=== PATIENT | male | born 1955 | race Caucasian/White ===

== ENCOUNTER 2023-04-04 10:16 | Outpatient (OUT) | payer MEDICARE, SELFPAY ==
--- NOTE | 2023-04-04 10:28 | XR_ITS ---
The [address] [address] Patient Name: ALICJA REYES MRN: [id number] date: 1955 Sex: M Assigned Patient Location: RAD Current Patient Location: RAD Accession/Order Number: [id number] Exam Date: 04/04/2023 10:55 Report Date: 04/04/2023 12:44 At the request of: GABY SALINAS Procedure: XR abdomen 1V EXAM: XR abdomen 1V HISTORY: Hematuria R31.9, Frequency Of Micturition R35.0 COMPARISON: None. TECHNIQUE: AP view of the abdomen. FINDINGS: Nonobstructive bowel gas pattern is noted. There is no suspicious calcification. Posterior fusion of the lower lumbar spine. XR/XR abdomen 1V IMPRESSION: Nonobstructive bowel gas pattern. No suspicious renal calcification. Electronically authenticated by: MIGUEL GRACE Date: 04/04/2023 12:44
== END 2023-04-04 10:17 | disposition home or self-care (01) ==
LOC: RAD 10:21
PROVIDERS: PCP Family Medicine; Visit Provider Nurse Practitioner
DX: R31.9 Hematuria, unspecified (principal); R35.0 Frequency of micturition; R10.9 Unspecified abdominal pain
CPT/HCPCS: 74018

== ENCOUNTER 2023-05-23 08:51 | Emergency (ER) | payer MEDICARE, OTHER, SELFPAY ==
[2023-05-23] VITALS (11 sets, daily range): BP systolic 163–181; BP diastolic 98–105; PULSE 103–129; RESP 12–24; TEMP 36.4; O2SAT 93–99; BMI 36.9
[2023-05-23 09:11] LABS: Glucometer 287 mg/dL (74-106)
--- NOTE | 2023-05-23 09:19 | ECG_ITS ---
The 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
--- NOTE | 2023-05-23 09:20 | ED.GENADUL1 ---
HPI - General Adult General Chief complaint: Recheck/Abnormal Lab/Rx Stated complaint: HIGH BLOOD SUGAR Time Seen by Provider: 05/23/23 09:16 Source: patient and family Mode of arrival: walk-in Limitations: no limitations History of Present Illness HPI narrative: 68-year-old male presents for elevated blood sugar. He was nauseous and vomited yesterday and today and he's been shaky. He states his blood sugar was over six hundred yesterday. He thinks it might be due to the Keflex that she was started on yesterday. He is on it for a urinary tract infection. He has not had a fever and doesn't complain to me of abdominal pain. Related Data Home Medications Medication Instructions Recorded Confirmed atorvastatin 20 mg tablet 20 mg PO DAILY 05/23/23 05/23/23 cephalexin 250 mg capsule 250 mg PO Q6H 05/23/23 05/23/23 glipizide 5 mg tablet 5 mg PO DAILY 05/23/23 05/23/23 lisinopril 20 1 tab PO DAILY 05/23/23 05/23/23 mg-hydrochlorothiazide 12.5 mg tablet metformin 500 mg tablet 500 mg PO BID 05/23/23 05/23/23 metoprolol tartrate 25 mg tablet 25 mg PO 05/23/23 omeprazole 40 mg capsule,delayed 40 mg PO DAILY 05/23/23 05/23/23 release Previous Rx's Medication Instructions Recorded ondansetron 4 mg disintegrating 4 mg PO Q6H PRN nausea and 05/23/23 tablet vomiting #20 tabs Allergies Allergy/AdvReac Type Severity Reaction Status Date / Time No Known Drug Allergies Allergy Verified 05/23/23 09:02 Review of Systems ROS Narrative A ten point review of systems is negative except as noted above. PFSH PFSH Social History Smoking status: Former smoker Exam Narrative Exam Narrative: Nurses note and vital signs reviewed and patient is not hypoxic. General: The patient appears well and in no apparent distress. Patient is resting comfortably on cart. Skin: Warm, dry, no pallor noted. There is no rash noted. Head: Normocephalic, atraumatic Eye: Normal conjunctiva, no drainage Ears, Nose, Mouth, and Throat: oral mucosa is somewhat dry. Nares patent. Cardiovascular: Regular Rate and Rhythm, tachycardic Respiratory: Patient is in no distress, no accessory muscle use, lungs are clear to auscultation, no wheezing, rales or rhonchi Back: non-tender GI: soft and nontender Musculoskeletal: The patient has no evidence of calf tenderness, no pitting edema, symmetrical pulses noted bilaterally Neurological: A&O, normal speech Psychiatric: Cooperative Constitutional Vital Signs, click to edit/add: Last Vital Signs Temp 97.5 F L 05/23/23 08:55 Pulse 103 H 05/23/23 10:20 Resp 23 05/23/23 10:20 BP 181/98 H 05/23/23 10:00 Pulse Ox 95 05/23/23 10:20 O2 Del Method Room Air 05/23/23 08:55 Course Vital Signs Vital signs: Vital Signs Temperature 97.5 F L 05/23/23 08:55 Pulse Rate 129 H 05/23/23 08:55 Respiratory Rate 18 05/23/23 08:55 Blood Pressure 170/105 H 05/23/23 08:55 Pulse Oximetry 99 05/23/23 08:55 Oxygen Delivery Method Room Air 05/23/23 08:55 Temperature 97.5 F L 05/23/23 08:55 Pulse Rate 103 H 05/23/23 10:20 Respiratory Rate 23 05/23/23 10:20 Blood Pressure 181/98 H 05/23/23 10:00 Pulse Oximetry 95 05/23/23 10:20 Oxygen Delivery Method Room Air 05/23/23 08:55 Medical Decision Making MDM Narrative Medical decision making narrative: blood sugar was mildly elevated but not as high as he had gotten home. Keflex apparently can cause hypoglycemia rather than hyperglycemia. He was unable to provide us a urine specimen. She was given Zofran and is prescribed Zofran and he'll follow-up with his doctor and will keep closely monitoring his bloood sugar. Treatment diagnosis and follow-up were discussed with the patient and his . Differential Diagnosis Differential Diagnosis: hyperglycemia, medication noncompliance, urinary tract infection Lab Data Lab results reviewed: Yes I reviewed the patient's lab results Labs: Lab Results 05/23/23 05/23/23 05/23/23 Range/Units 09:01 09:30 11:34 WBC 9.0 (4.0-11.0) 10^3/uL RBC 4.34 L (4.70-6.10) 10^6/uL Hgb 13.6 L (14.0-18.0) g/dL Hct 41.1 L (42.0-54.0) % MCV 94.7 H (80.0-94.0) fL MCH 31.3 (25.9-34.0) pg MCHC 33.1 (29.9-35.2) g/dL RDW 12.4 (11.0-15.0) % Plt Count 358 (150-450) 10^3/uL MPV 9.9 (9.5-13.5) fL Neut % (Auto) 72.9 (43.0-75.0) % Lymph % (Auto) 16.0 L (20.5-60.0) % [place] % (Auto) 8.9 (1.7-12.0) % Eos % (Auto) 1.0 (0.9-7.0) % Baso % (Auto) 0.6 (0.2-2.0) % Neut # (Auto) 6.6 H (1.4-6.5) 10^3/uL Lymph # (Auto) 1.4 (1.2-3.8) 10^3/uL [place] # (Auto) 0.8 (0.3-0.8) 10^3/uL Eos # (Auto) 0.1 (0.0-0.7) 10^3/uL Baso # (Auto) 0.1 (0.0-0.1) 10^3/uL Abs Immat Gran (auto) 0.05 H (0.00-0.03) 10^3/uL Imm/Tot Granulo (auto) 0.6 H (0.0-0.5) % Sodium 137 (136-145) mmol/L Potassium 2.7 L* (3.5-5.1) mmol/L Chloride 93 L (98-107) mmol/L Carbon Dioxide 27.7 (21.0-32.0) mmol/L Anion Gap 19.0 BUN 22.0 H (7.0-18.0) mg/dL Creatinine 1.64 H (0.70-1.30) mg/dL Est GFR ( Amer) 51 L (>=60) Est GFR (Non-Af Amer) 42 L (>=60) BUN/Creatinine Ratio 13.4 Glucose 298 H (74-106) mg/dL Calcium 8.3 L (8.5-10.1) mg/dL Acetone, Qual Negative (NEGATIVE) POC Glucose 287 H 194 H (74-106) mg/dL ECG Data Attestation: I personally reviewed and interpreted this ECG as follows: (EKG on my interpretation shows normal sinus rhythm with a rate of one hundred eighteen) Critical Care Time Critical Care Time Critical Care Time: Yes Total Critical Care Time: 30 Attestation: Due to the high probability of sudden and clinically significant deterioration in the patient's condition he/she required the highest level of my preparedness to intervene urgently I provided critical care time including documentation time, medication orders and management, reevaluation, vital sign assessment, ordering and reviewing of lab tests, ordering and reviewing of x-ray studies, and admission orders. Aggregate critical care time is 30 minutes including only time during which I was engaged in work directly related to his/her care and did not include time spent treating other patients simultaneously. Discharge Plan Discharge Chief Complaint: Recheck/Abnormal Lab/Rx Clinical Impression: Hyperglycemia Patient Disposition: Home, Self-Care Time of Disposition Decision: 11:44 Condition: Good Mode of Transportation: Private Vehicle Prescriptions / Home Meds: New ondansetron 4 mg tablet,disintegrating 4 mg PO Q6H PRN (Reason: nausea and vomiting) Qty: 20 0RF No Action cephalexin 250 mg capsule 250 mg PO Q6H glipizide 5 mg tablet 5 mg PO DAILY lisinopril-hydrochlorothiazide 20-12.5 mg tablet 1 tab PO DAILY metformin 500 mg tablet 500 mg PO BID metoprolol tartrate 25 mg tablet 25 mg PO omeprazole 40 mg capsule,delayed release(DR/EC) 40 mg PO DAILY atorvastatin 20 mg tablet 20 mg PO DAILY Instructions: Diabetic Hyperglycemia (ED) Stand Alone Forms: Portal Instructions Referrals: NANCY GRACE [Primary Care Provider] - 1 week
[2023-05-23] MEDS: 0.9 % SODIUM CHLORIDE 1,000 ML 1000 ML IV (09:31)
[2023-05-23] MEDS: ONDANSETRON PF 4 MG/2 ML VIAL IV ×2 (09:31→11:54)
[2023-05-23 09:57] LABS: Basophils Absolute Auto 0.1 10^3/uL (0.0-0.1); Basophils Percent Auto 0.6 % (0.2-2.0); Eosinophils Absolute Auto 0.1 10^3/uL (0.0-0.7); Hematocrit 41.1 % (42.0-54.0); Hemoglobin 13.6 g/dL (14.0-18.0); Immature Granulocytes Abs Auto 0.05 10^3/uL (0.00-0.03); Immature Granulocytes Pct Auto 0.6 % (0.0-0.5); Lymphocytes Absolute Auto 1.4 10^3/uL (1.2-3.8); Mean Corpuscular HGB Conc 33.1 g/dL (29.9-35.2); Mean Corpuscular Hemoglobin 31.3 pg (25.9-34.0); Mean Corpuscular Volume 94.7 fL (80.0-94.0); Mean Platelet Volume 9.9 fL (9.5-13.5); Monocytes Absolute Auto 0.8 10^3/uL (0.3-0.8); Monocytes Percent Auto 8.9 % (1.7-12.0); Neutrophils Absolute Auto 6.6 10^3/uL (1.4-6.5); Neutrophils Percent Auto 72.9 % (43.0-75.0); Platelet Count 358 10^3/uL (150-450); Red Blood Count 4.34 10^6/uL (4.70-6.10); Red Cell Distribution Width 12.4 % (11.0-15.0)
[2023-05-23 10:13] LABS: BUN Creatinine Ratio 13.4; Calcium 8.3 mg/dL (8.5-10.1); Carbon Dioxide 27.7 mmol/L (21.0-32.0); Chloride 93 mmol/L (98-107); Estimated GFR (African America 51 (>=60); Estimated GFR (Non-African Ame 42 (>=60); Glucose 298 mg/dL (74-106); Sodium 137 mmol/L (136-145)
[2023-05-23 10:15] LABS: Acetone NEGATIVE (NEGATIVE)
[2023-05-23 10:17] LABS: Potassium 2.7 mmol/L (3.5-5.1)
[2023-05-23] MEDS: INSULIN REGULAR 300 UNITS/3 ML 6 UNIT IV (10:48)
[2023-05-23 11:35] LABS: Glucometer 194 mg/dL (74-106)
== END 2023-05-23 11:57 | disposition home or self-care (01) ==
PROVIDERS: Emergency Provider Emergency Medicine; PCP Family Medicine
DX: R73.9 Hyperglycemia, unspecified (principal); Z79.84 Long term (current) use of oral hypoglycemic drugs; Z87.891 Personal history of nicotine dependence; R11.2 Nausea with vomiting, unspecified
CPT/HCPCS: 36415; 80048; 81001; 82009; 82948; 85025; 93005; 96361; 96374; 96376; 99284

== ENCOUNTER 2023-06-04 12:11 | Emergency (ER) | payer MEDICARE, OTHER, SELFPAY ==
[2023-06-04] VITALS (23 sets, daily range): BP systolic 124–161; BP diastolic 83–87; PULSE 83–115; RESP 13–26; TEMP 36.8; O2SAT 96–99; BMI 34.0
--- OUTSIDE RECORDS SUMMARY | 2023-06-04 12:19 | XMS_ITS | CCD ---
Author Name Unknown Address [address] [place] [address] Organization [facility] Care Team Providers Care Director Of Online Merchandising Name Role Phone DR TYRESE MCGRATH Admitting Unavailable RAMILA, DR TYRESE Green Attending Unavailable RAMILA, DR TYRESE Green Primary Care Unavailable RAMILA, DR TYRESE Green Consulting Unavailable Jose Melchor Primary Care Physician Jose Melchor Attending Unavailable Jose Melchor Attending Unavailable EseChristy Referring Unavailable Manolo ALLEN Attending Unavailable EseChristy Admitting Unavailable Ese, Christy Montes Attending Unavailable Jose Melchor Attending Unavailable Jose Melchor Admitting Unavailable Ese, Christy Montes Attending Unavailable Ese, Christy L Admitting Unavailable Ese, Christy L Attending Unavailable EseChristy Admitting Unavailable Jose Melchor Admitting Unavailable Jose Melchor Attending Unavailable Jose Melchor Admitting Unavailable Jose Melchor Attending Unavailable Jose Melchor Attending Unavailable Ese, Christy Montes Attending Unavailable Jose Melchor Attending Unavailable Jose Melchor Attending Unavailable Jose Melchor Attending Unavailable Jose Melchor Attending Unavailable Jose Melchor Attending Unavailable Allergies Allergy Classification Reported Allergen(s) Allergy Type Date of Onset Reaction(s) Facility (2 sources) celecoxib; Translations: [CeleBREX] Drug Allergy [facility] Repository (1 source) Cetirizine Drug Allergy [facility] Rep[facility] (6 sources) celecoxib; Translations: [celecoxib] Drug Allergy Unknown (qualifier value) [facility] Medications Current Medications Medication Drug Class(es) Dates Sig (Normalized) Sig (Original) atorvastatin 20 mg oral tablet (6 sources) HMG-CoA Reductase Inhibitor Start: 09-11-2023 take 1 tablet by mouth at bedtime atorvastatin 20 mg Tab 20 mg = 1 tab(s), Oral, Bedtime, # 90 tab(s), Refills(s) 1, Pharmacy: [facility], 174.5, cm, 02/14/23 7:27:00 EDT, Height/Length Dosing, 115.8, kg, 02/14/23 7:27:00 EDT, Weight Dosing Start Date: 02/14/23 Status: Ordered Start: 01-13-2023 take 1 tablet by marly th at bedtime atorvastatin 20 mg Tab 20 mg = 1 tab(s), Oral, Bedtime, Refills(s) 0 Start Date: 01/13/23 Status: Ordered cephalexin 250 mg oral capsule (3 sources) Cephalosporin Antibacterial Start: 05-26-2023 End: 06-02-2023 take 1 capsule by mouth four times daily Keflex 250 mg Cap 250 mg = 1 cap(s), Oral, QID, X 7 day(s), # 28 cap(s), Refills(s) 0, Pharmacy: [facility]/pharmacy #[id number], 174.5, cm, 05/26/23 9:14:00 EST, Height/Length Dosing, 109.1, kg, 05/26/23 9:14:00 EST, Weight Dosing Start Date: 05/26/23 Stop Date: 06/02/23 Status: Ordered Start: 05-16-2023 End: 05-23-2023 take 1 capsule by mouth four times daily Keflex 250 mg Cap 250 mg = 1 cap(s), Oral, QID, X 7 day(s), # 28 cap(s), Refills(s) 0, Pharmacy: [facility], 174.5, cm, 05/16/23 7:26:00 EST, Height/Length Dosing, 113.4, kg, 05/16/23 7:26:00 EST, Weight Dosing Start Date: 05/16/23 Stop Date: 05/23/23 Status: Ordered ciprofloxacin 500 mg oral tablet (2 sources) Quinolone Antimicrobial Start: 04-04-2023 End: 2023 take 1 tablet by mouth every twelve hours Cipro 500 mg Tab 500 mg = 1 tab(s), Oral, q12hr, X 10 day(s), # 20 tab(s), Refills(s) 0 Start Date: 04/04/23 Stop Date: 04/14/23 Status: Ordered Freestyle Alejandra 2 Flash Glucose Monitoring 14 Day System ([place]) (5 sources) Start: 02-14-2023 Freestyle Alejandra 2 Flash Glucose Monitoring 14 Day System ([place]) Freestyle Alejandra 2 Flash Glucose Monitoring 14 Day System ([place]), See Instructions, 1 EA, 0, Freestyle Alejandra Flash Glucose Monitoring 14 Day System ([place]), [facility]/pharmacy #[id number], Supply, 174.5, cm, 02/14/23 7:27:00 EDT, Height/Length Dosing, 115.8, kg, 02/14/23 7:27:00 EDT, Weight Dosing Start Date: 02/14/23 Status: Ordered Freestyle Alejandra Flash 2 Glucose Monitoring 14 Day System ([place]) (5 sources) Start: 02-14-2023 Freestyle Alejandra Flash 2 Glucose Monitoring 14 Day System ([place]) Freestyle Alejandra Flash 2 Glucose Monitoring 14 Day System ([place]), See Instructions, 6 EA, 0, Freestyle Alejandra Flash Glucose Monitoring 14 Day System (Sensor). Replace sensor every 14 days., [facility]/pharmacy #[id number], Supply, 174.5, cm, 02/14/23 7:27:00 EDT, Height/Length Dosing, 115.8, kg, 02/14/23 7:27:00 EDT, Weight Dosing Start Date: 02/14/23 Status: Ordered glipiZIDE 5 mg oral tablet (6 sources) Sulfonylurea Start: 05-26-2023 take 2 tablets by mouth twice daily glipiZIDE 5 mg Tab 10 mg = 2 tab(s), Oral, BID, # 360 tab(s), Refills(s) 1, Pharmacy: [facility], 174.5, cm, 05/26/23 9:14:00 EST, Height/Length Dosing, 109.1, kg, 05/26/23 9:14:00 EST, Weight Dosing Start Date: 05/26/23 Status: Ordered Start: 05-16-2023 take 1 tablet by marly th twice daily glipiZIDE 5 mg Tab 5 mg = 1 tab(s), Oral, BID, # 90 tab(s), Refills(s) 1, Pharmacy: [facility], 174.5, cm, 05/16/23 7:26:00 EST, Height/Length Dosing, 113.4, kg, 05/16/23 7:26:00 EST, Weight Dosing Start Date: 05/16/23 Status: Ordered Start: 02-14-2023 take 1 tablet by marly th once daily glipiZIDE 5 mg Tab 5 mg = 1 tab(s), Oral, Daily, # 90 tab(s), Refills(s) 1, Pharmacy: [facility], 174.5, cm, 02/14/23 7:27:00 EDT, Height/Length Dosing, 115.8, kg, 02/14/23 7:27:00 EDT, Weight Dosing Start Date: 02/14/23 Status: Ordered Start: 01-13-2023 take 1 tablet by marly th in the morning glipiZIDE 5 mg Tab See Instructions, Take one orally in the morning if blood sugar is > 170, Refills(s) 0 Start Date: 01/13/23 Status: Ordered hydroCHLOROthiazide 12.5 mg / lisinopril 20 mg oral tablet (6 sources) Thiazide Diuretic, Angiotensin Converting Enzyme Inhibitor Start: 09-16-2022 hydrochlorothiazide-lisinopr il 12.5 mg-20 mg Tab 1 tab(s), Oral, Daily, 90 tab(s), Refill(s) 3, [facility] Start Date: 09/16/22 Status: Ordered metFORMIN hydrochloride 500 mg oral tablet (6 sources) Biguanide Start: 11-15-2022 End: 11-10-2023 take 2 tablets by mouth once daily metformin 500 mg Tab 1,000 mg = 2 tab(s), Oral, Daily, X 90 day(s), # 180 tab(s), Refills(s) 3, Pharmacy: [facility] Start Date: 11/15/22 Stop Date: 11/10/23 Status: Ordered Misc DME Prescription (4 sources) Start: 05-26-2023 Start: 05-26-2023 Misc DME Presc ription Misc DME Prescription, See Instructions, 1 kit(s), 0, One Touch Ultra 2 glucose meter kit Use to tests sugars daily E11.9, [facility], Supply, 174.5, cm, 05/26/23 9:14:00 EST, Height/Length Dosing, 109.1, kg, 05/26/23 9:14:00 EST, Weight Dosing Start Date: 05/26/23 Status: Ordered Multiple Vitamins Tab (1 source) Start: 11-15-2012 take 1 tablet by mouth once daily Multiple Vitamins Tab 1 tab(s), Oral, Daily, Refill(s) 0, Prophylaxis Start Date: 11/15/12 Status: Ordered omeprazole 40 mg delayed release oral capsule (6 sources) Proton Pump Inhibitor Start: 01-20-2023 take 1 capsule by mouth once daily omeprazole 40 mg Cap-DR 40 mg = 1 cap(s), Oral, Daily, # 90 cap(s), Refills(s) 0, Pharmacy: [facility], 174.5, cm, 01/20/23 8:03:00 EDT, Height/Length Dosing, 115.9, kg, 01/20/23 8:03:00 EDT, Weight Dosing Start Date: 01/20/23 Status: Ordered tamsulosin hydrochloride 0.4 mg oral capsule (1 source) alpha-Adrenergic Pooja Start: 01-13-2023 take 1 capsule by mouth at bedtime tamsulosin 0.4 mg Cap 0.4 mg = 1 cap(s), Oral, Bedtime, Refills(s) 0 Start Date: 01/13/23 Status: Ordered Vitamin B Complex oral capsule (1 source) Start: 11-15-2012 take 1 capsule by mouth once daily Vitamin B Complex oral capsule 1 cap(s), Oral, Daily, Refill(s) 0, Prophylaxis Start Date: 11/15/12 Status: Ordered Completed/Discontinued Medications Medication Drug Class(es) Dates Sig (Normalized) Sig (Original) potassium chloride 20 meq oral tablet (2 sources) Start: 05-26-2023 End: 06-02-2023 take 1 tablet by mouth twice daily Potassium Chloride (Eqv-K-Tab) 20 mEq oral tablet, extended release 20 mEq = 1 tab(s), Oral, BID, X 7 day(s), # 14 tab(s), Refills(s) 0, Pharmacy: [facility]/pharm[facility] #[id number], 174.5, cm, 05/26/23 9:14:00 EST, Height/Length Dosing, 109.1, kg, 05/26/23 9:14:00 EST, Weight Dosing Start Date: 05/26/23 Stop Date: 06/02/23 Status: Ordered Problems Problem Classification Problem Date Documented Date Episodic/Chronic Abdominal pain (5 sources) Right flank pain 04-04-2023 Episodic Alcohol-related disorders (6 sources) Alcohol abuse 01-20-2023 Chronic Cardiac dysrhythmias (4 sources) Tachycardia 01-20-2023 Episodic Diabetes mellitus with complications (9 sources) Type 2 diabetes mellitus with unspecified complications; Translations: [Renal disorder due to type 2 diabetes mellitus] Onset: 07-13-2022 Chronic Diabetes mellitus without complication (7 sources) Type 2 diabetes mellitus without complication; Translations: [Type 2 diabetes mellitus without complications] 01-20-2023 Chronic Comment on above: linked DM with HLD p er OP CDI policy. Disorders of lipid metabolism (7 sources) Pure hypercholesterolemia, unspecified; Translations: [Hypercholesterolemia] Onset: 07-14-2022 01-13-2023 Chronic Esophageal disorders (6 sources) Gastroesophageal reflux disease without esophagitis; Translations: [Gastro-esophageal reflux disease without esophagitis] 01-20-2023 Chronic Essential hypertension (7 sources) Essential (primary) hypertension; Translations: [Hypertensive disorder] Onset: 07-14-2022 11-15-2012 Chronic Fluid and electrolyte disorders (2 sources) Hypokalemia 05-26-2023 Episodic Genitourinary symptoms and ill-defined conditions (11 sources) Blood in urine; Translations: [Increased frequency of urination] 04-04-2023 Episodic Malaise and fatigue (3 sources) Fatigue 05-16-2023 Episodic Other male genital disorders (1 source) Disorder of prostate, unspecified; Translations: [DISORDER OF PROSTATE UNSPECIFIED] Onset: 07-14-2022 Episodic Other male genital disorders (6 sources) Disorder of prostate 01-13-2023 Episodic Other nutritional; endocrine; and metabolic disorders (1 source) Obese class II; Translations: [Body mass index (BMI) 37.0-37.9, adult] Onset: 05-16-2023 Chronic Other nutritional; endocrine; and metabolic disorders (1 source) Obesity; Translations: [Other obesity due to excess calories] Onset: 05-16-2023 Chronic Other nutritional; endocrine; and metabolic disorders (3 sources) Morbid obesity 05-16-2023 Chronic Comment on above: added per 05/13/2023 query response. Residual codes; unclassified (3 sources) Edema 05-16-2023 Episodic Screening and history of mental health and substance abuse codes (1 source) H/O: Disorder; Translations: [Personal history of nicotine dependence] Onset: 05-16-2023 Episodic Unclassified (5 sources) Patient encounter status 04-04-2023 Results Test Name Value Interpretation Reference Range Facil ity C Urineon 05-29-2023 Bacteria identified Cx Nom (U) Microbiology PROCEDURE: Urine Culture [R1] SOURCE: U CleanCatch BODY SITE: COLLECTED DATE/TIME: 05/26/2023 09:50 EST RECEIVED DATE/TIME: 05/26/2023 17:44 EST START DATE/TIME: 05/26/2023 17:44 EST FREE TEXT SOURCE: Ruiz REYNOLDS, Jose Melchor MD, Jose Thompson FINAL REPORTS Final Report [] Verified Date/Time: 05/29/2023 08:52 EST 60,000 cfu/ml Beta Hemolytic Streptococci, non group A or B Presumptive Penicillin is the drug of choice for Beta Hemolytic Streptococci Isolates. Routine susceptibility testing on Beta Hemolytic Streptococcus isolates is no longer performed. Susceptibilities will continue to be performed on Isolates from sterile body fluids and serious wound infections. Performing Locations R1: This test was performed at: [facility], [address] [place] [address], [address] , , Normal [facility] Comment on above: Performed By: #### 2 [id number] ####[facility] [address] [place] [address] BMPon 05-27-2023 Anion gap [Moles/Vol] 13 mmol/L Normal 6- [facility] Comment on above: Performed By: #### 2 [id number], [id number] ####[facility] [address] [place] [address] BUN/Creat Ratio 17 No Units Normal 10-20 [facility] Comment on above: Performed By: #### 2 [id number], [id number] ####[facility] [address] [place] [address] Calcium [Mass/Vol] 8.6 mg/dL Low 8.9-11.1 [facility] Comment on above: Performed By: #### 2 [id number], [id number] ####[facility] [address] [place] [address] Chloride [Moles/Vol] 97 mmol/L Low 101-111 [facility] Comment on above: Performed By: #### 2 [id number], [id number] ####[facility] [address] [place] [address] CO2 [Moles/Vol] 33 mmol/L High 21-31 [facility] Comment on above: Performed By: #### 2 [id number], [id number] ####[facility] [address] [facility] [place] [address] Creatinine [Mass/Vol] 1.5 mg/dL High 0.5-1.3 [facility] Comment on above: Performed By: #### 2 [id number], [id number] ####[facility] [address] [place] [address] Glucose [Mass/Vol] 201 mg/dL High 55-199 [facility] Comment on above: Performed By: #### 2 [id number], [id number] ####[facility] [address] [place] [place] [address] Potassium [Moles/Vol] 3.3 mmol/L Low 3.5-5.3 [facility] Comment on above: Performed By: #### 2 [id number], [id number] ####[facility] [address] [place] [address] Sodium [Moles/Vol] 140 mmol/L Normal 135-145 [facility] Comment on above: Performed By: #### 2 [id number], [id number] ####[facility] [address] [place] [address] Urea nitrogen [Mass/Vol] 25 mg/dL High 5-21 [facility] Comment on above: Performed By: #### 2 [id number], [id number] ####[facility] [address] [place] [address] CHEMISTRYOrdered By: SYSTEM SYSTEM on 05-27-2023 Anion gap [Moles/Vol] 13 mmol/L Normal 6 - 16 mEq/L Remisol Chem Calcium [Mass/Vol] 8.6 mg/dL Low 8.9 - 11.1 mg/dL Remisol Chem Chloride [Moles/Vol] 97 mmol/L Low 101 - 111 mmol/L Remisol Chem CO2 [Moles/Vol] 33 mmol/L High 21 - 31 mmol/L Remis ol Chem Creatinine [Mass/Vol] 1.5 mg/dL High 0.5 - 1.3 mg/dL Remisol Chem eGFR 50 mL/min/1.73 m2 Low >=59mL/min /1.73 m2 Remisol Chem Glucose [Mass/Vol] 201 mg/dL High 55 - 199 mg/dL Re misol Chem Potassium [Moles/Vol] 3.3 mmol/L Low 3.5 - 5.3 mmol/L Remisol Chem Sodium [Moles/Vol] 140 mmol/L Normal 135 - 145 mmol/L Remisol Chem Urea nitrogen [Mass/Vol] 25 mg/dL High 5 - 21 mg/dL Remisol Chem Urea nitrogen/Creatinine [Mass ratio] 17 mg/mg Normal 10 - 20 Remisol Chem Interdisciplinary Note - Soc ial Workeron 05-27-2023 Interdisciplinary Note - Painter Helper Sign This SW reached out to patient to follow up with her regarding a positive depression screen that patient received at her most recent PCP appointment on May 26, 2023 with Jose Melchor MD. Patient's total depression screening score was a 14 at that appointment. SW wanted to reach out to offered supportive services if needed. Patient did not answer; therefore, a voicemail was left. SW will remain available as needed. Normal [facility] eGFRon 05-27-2023 eGFR 50 mL/min/1.73 m2 Low >=59 [facility] Comment on above: Order Comment: Order added by Discern Expert. Performed By: #### 2 [id number], [id number] ####[facility] [address] [place] [address] Ambulatory Visit Summaryon 1 07-27-2022 Ambulatory Visit Summary CLARENCE REYES :1955 Visit Date:05/26/2023 Ambulatory Visit Instructions Your Diagnosis Type 2 diabetes mellitus with hypercholesterolemia Morbid obesity Primary hypertension Alcohol abuse Pure hypercholesterolemia, unspecified UTI symptoms BMI 35.0-35.9,adult Class 1 obesity due to excess calories in adult Former smoker Your Care Team Attending Physician - Jose Melchor MD Primary Care Physician - Jose Melchor MD This Is Your Medications List Misc Prescription (Freestyle Alejandra 2 Flash Glucose Monitoring 14 Day System ([place])) Misc Prescription (Freestyle Alejandra Flash 2 Glucose Monitoring 14 Day System ([place])) atorvastatin (atorvastatin 20 mg Tab) cephalexin (Keflex 250 mg Cap) glipiZIDE (glipiZIDE 5 mg Tab) hydrochlorothiazide-li sinopril (hydrochlorothiazide-l isinopril 12.5 mg-20 mg Tab) metformin (metformin 500 mg Tab) omeprazole (omeprazole 40 mg Cap-DR) potassium chloride (Potassium Chloride (Eqv-K-Tab) 20 mEq oral tablet, extended release) Procedures Performed Arthroscopy, back surgery, Carpal tunnel release, hand and elbow surgery, Hand tendon repaired. Discharge Vitals Temperature (Oral) 36.8 ?C Heart Rate (Peripheral) 106 Respiratory Rate 16 Blood Pressure 136/82 Height 174.5 cm Height 69 in Weight 109.1 kg Weight 240.02 lb BMI 35.83 What to do next Scheduled Follow-Up Appointments 2023 8:00 AM EST With: Where: Cardiovascular Services Tuesday 8:00 AM EST With: Jose Melchor MD Where: [facility] Invalid Interpretation Code [address] [place] [address] [place] [address]- \.br\ Tuesday 2:00 PM EST \.br\ With:\.br\ Where: [facility] Medicine Office/Clini c Noteon 05-26-2023 Family Medicine Office/Clinic Note HPI Staff Clarence is a 68 year old male presenting for lab review recent A1C: Hgb A1C %: 9.6 % High (05/16/23 08:05:00) K+ ordered 05/16/23 ER Tuesday [facility] blood sugar 600 had vomiting Given insulin through an IV flu: UTD questions/concerns: his glipizide needs sent to [facility] with the correct dose, his current refill came at 1 tablet daily was supposed to be bid but it's only 5mg and he's supposed to be taking 10mg bid so can you do a new rx for the 10mg bid and send to mail away History of Present Illness - Here for follow up on Labs. Review of Systems PHQ Score Initial Depression Screen Score: 4 SCORE Detailed Depression Screen Score: 10 Total Depression Screen Score: 14 Physical Exam Vitals & Measurements T: 36.8 ?C(Oral) HR: 106(Peripheral) RR: 16 BP: 136/82 SpO2: 98% HT: 69 in HT: 174.5 cm WT: 109.1 kg WT: 240.02 lb BMI: 35.83 General: alert, no acute distress ENMT: oral mucosa moist, Cardiovascular: regular rate and rhythm, normal peripheral perfusion Respiratory: Lungs CTA, respirations non labored Extremities: no deformity, no trauma Neurological: oriented x 4, LOC appropriate for age, CN II-XII intact, motor strength equal & normal bilaterally, speech normal Abdomen: Soft, Nontender, Non-distended, + BS Assessment/Plan Total time spent preparing for the encounter, evaluating and assessing the patient, documenting the visit, and ordering appropriate follow-up work was 45 minutes. Reviewed ER notes 1. Type 2 diabetes mellitus with hypercholesterolemia (E11.69: Type 2 diabetes mellitus with other specified complication) - Will send in DM script for testing supplies. - Resend meds - BS are elevated again in 2 weeks we will increase glipizide. Ordered: Misc Prescription, BLOOD GLUCOSE METER TEST STRIPS, See Instructions, 100 EA, 11, BLOOD GLUCOSE METER TEST STRIPS OF CHOICE, OR SPECIFIED BY INSURANCE. USE WITH METER ONCE DAILY. DX E11.9, [id number], Supply, 174.5, cm, 05/26/23 9:14:00 EST, Height/Length Dos... Misc Prescription, Glucose Kit, See Instructions, 1 EA, 0, Glucose meter. Include autolet, matching test strips, lancets, & alcohol wipes, #100 or as allowed by insurance; DX: E11.9, [id number], Supply, 174.5, cm, 05/26/23 9:14:00 EST, Height/Length Dosing, 109.... Misc Prescription, LANCETS OF CHOICE OR SPECIFIED BY INSURANCE., See Instructions, 100 EA, 11, USE TO TEST BLOOD GLUCOSE ONCE DAILY FOR DX E11.9, [id number], Supply, 174.5, cm, 05/26/23 9:14:00 EST, Height/Length Dosing, 109.1, kg, 05/26/23 9:14:00 EST, Weigh... Basic Metabolic Panel Body Mass Index (BMI) documented 3008F Current tobacco non-user 1036F Depression Screening Positive 3354F Influenza immunization administered or previously received 4274F Most recent diastolic blood pressure 80-89 mm Hg 3079F Patient screen for fall risk: no falls in last year or 1 fall with no injury in last year 1101F Systolic BP 130-139 mm Hg (Most Recent) 3075F 2. Morbid obesity (E66.01: Morbid (severe) obesity due to excess calories) - Diet and exercise advsied Ordered: Misc Prescription, BLOOD GLUCOSE METER TEST STRIPS, See Instructions, 100 EA, 11, BLOOD GLUCOSE METER TEST STRIPS OF CHOICE, OR SPECIFIED BY INSURANCE. USE WITH METER ONCE DAILY. DX E11.9, [id number], Supply, 174.5, cm, 05/26/23 9:14:00 EST, Height/Length Dos... Misc Prescription, Glucose Kit, See Instructions, 1 EA, 0, Glucose meter. Include autolet, matching test strips, lancets, & alcohol wipes, #100 or as allowed by insurance; DX: E11.9, [id number], Supply, 174.5, cm, 05/26/23 9:14:00 EST, Height/Length Dosing, 109.... Misc Prescription, LANCETS OF CHOICE OR SPECIFIED BY INSURANCE., See Instructions, 100 EA, 11, USE TO TEST BLOOD GLUCOSE ONCE DAILY FOR DX E11.9, [id number], Supply, 174.5, cm, 05/26/23 9:14:00 EST, Height/Length Dosing, 109.1, kg, 05/26/23 9:14:00 EST, Weigh... Basic Metabolic Panel Body Mass Index (BMI) documented 3008F Current tobacco non-user 1036F Depression Screening Positive 3354F Influenza immunization administered or previously received 4274F Most recent diastolic blood pressure 80-89 mm Hg 3079F Patient screen for fall risk: no falls in last year or 1 fall with no injury in last year 1101F Systolic BP 130-139 mm Hg (Most Recent) 3075F 3. Primary hypertension (I10: Essential (primary) hypertension) - At goal Ordered: Misc Prescription, BLOOD GLUCOSE METER TEST STRIPS, See Instructions, 100 EA, 11, BLOOD GLUCOSE METER TEST STRIPS OF CHOICE, OR SPECIFIED BY INSURANCE. USE WITH METER ONCE DAILY. DX E11.9, [id number], Supply, 174.5, cm, 05/26/23 9:14:00 EST, Height/Length Dos... Misc Prescription, Glucose Kit, See Instructions, 1 EA, 0, Glucose meter. Include autolet, matching test strips, lancets, & alcohol wipes, #100 or as allowed by insurance; DX: E11.9, [id number], Supply, 174.5, cm, 05/26/23 9:14:00 EST, Height/Length Dosing, 109.... Misc Prescriptio (more content not included)... Normal [facility] Comment on above: Result Comment: Elec tronically Signed By: Ruiz REYNOLDS, Jose Thompson\.br\Date and Time Signed: 05/26/23 09:43 EST Patient Educationon 05-26-20 23 Patient Education Nutrition BMI for Adults What is BMI? Body mass index (BMI) is a number that is calculated from a person's weight and height. BMI can help estimate how much of a person's weight is composed of fat. BMI does not measure body fat directly. Rather, it is an alternative to procedures that directly measure body fat, which can be difficult and expensive. BMI can help identify people who may be at higher risk for certain medical problems. What are BMI measurements used for? BMI is used as a screening tool to identify possible weight problems. It helps determine whether a person is obese, overweight, a healthy weight, or underweight. BMI is useful for: ? Identifying a weight problem that may be related to a medical condition or may increase the risk for medical problems. ? Promoting changes, such as changes in diet and exercise, to help reach a healthy weight. BMI screening can be repeated to see if these changes are working. How is BMI calculated? BMI involves measuring your weight in relation to your height. Both height and weight are measured, and the BMI is calculated from those numbers. This can be done either in [place] ([place] or metric measurements. Note that charts and online BMI calculators are available to help you find your BMI quickly and easily without having to do these calculations yourself. To calculate your BMI in [place]ian ([place] measurements: 1. Measure your weight in pounds (lb). 2. Multiply the number of pounds by 703. ? For example, for a person who weighs 180 lb, multiply that number by 703, which equals 126,540. 3. Measure your height in inches. Then multiply that number by itself to get a measurement called inches squared. ? For example, for a person who is 70 inches tall, the inches squared measurement is 70 inches x 70 inches, which equals 4,900 inches squared. 4. Divide the total from step 2 (number of lb x 703) by the total from step 3 (inches squared): 126,540 ? 4,900 = 25.8. This is your BMI. To calculate your BMI in metric measurements: 1. Measure your weight in kilograms (kg). 2. Measure your height in meters (m). Then multiply that number by itself to get a measurement called meters squared. ? For example, for a person who is 1.75 m tall, the meters squared measurement is 1.75 m x 1.75 m, which is equal to 3.1 meters squared. 3. Divide the number of kilograms (your weight) by the meters squared number. In this example: 70 ? 3.1 = 22.6. This is your BMI. What do the results mean? BMI charts are used to identify whether you are underweight, normal weight, overweight, or obese. The following guidelines will be used: ? Underweight: BMI less than 18.5. ? Normal weight: BMI between 18.5 and 24.9. ? Overweight: BMI between 25 and 29.9. ? Obese: BMI of 30 or above. Keep these notes in mind: ? Weight includes both fat and muscle, so someone with a muscular build, such as an athlete, may have a BMI that is higher than 24.9. In cases like these, BMI is not an accurate measure of body fat. ? To determine if excess body fat is the cause of a BMI of 25 or higher, further assessments may need to be done by a health care provider. ? BMI is usually interpreted in the same way for men and women. Where to find more information For more information about BMI, including tools to quickly calculate your BMI, go to these websites: ? Centers for Disease Control and Prevention: www.cdc.gov ? [place] Heart Association: www.heart.org ? National Heart, Lung, and Blood [place]: www.nhlbi.nih.gov Summary ? Body mass index (BMI) is a number that is calculated from a person's weight and height. ? BMI may help estimate how much of a person's weight is composed of fat. BMI can help identify those who may be at higher risk for certain medical problems. ? BMI can be measured using Croatian measurements or metric measurements. ? BMI charts are used to identify whether you are underweight, normal weight, overweight, or obese. This information is not intended to replace advice given to you by your health care provider. Make sure you discuss any questions you have with your health care provider. Document Revised: 02/13/2020 Document Reviewed: 12/21/2019 [employer] Patient Education ? 2022 [employer] [facility] ED Note-Physicianon 05-25-20 ED Note-Physician [id number] 20 [id number] 0TIFF [facility] C Urineon 05-18-2023 Bacteria identified Cx Nom (U) Microbiology PROCEDURE: Urine Culture [R1] SOURCE: U CleanCatch BODY SITE: COLLECTED DATE/TIME: 05/16/2023 08:00 EST RECEIVED DATE/TIME: 05/16/2023 17:35 EST START DATE/TIME: 05/16/2023 17:35 EST FREE TEXT SOURCE: Ruiz REYNOLDS, Jose Melchor MD, Jose Thompson FINAL REPORTS Final Report [] Verified Date/Time: 05/18/2023 10:57 EST >100,000 cfu/ml Enterococcus faecalis SUSCEPTIBILITY RESULTS __ LEGEND: S=Susceptible, N/R=Not Reported, Blank=Data not available, or drug not advisable or tested, I=Intermediate, ESBL=Extended spectrum beta-lactamase, R=Resistant, TFG=Thymidine-dependen t strain, MAGGI=Beta-lactamase positive, EMERSON=mcg/m;(mg/L), S*=Predicted susceptible interp, R*=Predicted resistant interp Entfaeca Antibiotic EMERSON Dilutn EMERSON Interp Ampicillin <=2 S Ciprofloxacin <=1 S Daptomycin <=1 S Levofloxacin <=1 S Linezolid <=2 S Nitrofurantoin <=32 S Penicillin 2 S Rifampin 2 I Tetracycline >8 R Vancomycin 1 S Performing Locations R1: This test was performed at: [facility], [address] [place] [address], [address]- , , [facility] Comment on above: Performed By: #### 2 [id number] ####[address] [place] [address] Ambulatory Visit Summaryon 07-17-2022 Ambulatory Visit Summary CLARENCE REYES :1955 Visit Date:05/16/2023 Ambulatory Visit Instructions Your Diagnosis Type 2 diabetes mellitus without complication, without long-term current use of insulin Diabetic nephropathy associated with type 2 diabetes mellitus Type 2 diabetes mellitus with hypercholesterolemia Urinary frequency UTI symptoms Edema Fatigue Alcohol abuse Tests Performed Urnls Dip Stick Auto w/o Microscopy POC 42299 Your Care Team Attending Physician - Jose Melchor MD Primary Care Physician - Jose Melchor MD This Is Your Medications List cephalexin (Keflex 250 mg Cap) glipiZIDE (glipiZIDE 5 mg Tab) Contact prescribing physician if questions or concerns Misc Prescription (Freestyle Alejandra 2 Flash Glucose Monitoring 14 Day System ([place])) Misc Prescription (Freestyle Alejandra Flash 2 Glucose Monitoring 14 Day System (Sensor)) atorvastatin (atorvastatin 20 mg Tab) hydrochlorothiazide-li sinopril (hydrochlorothiazide-l isinopril 12.5 mg-20 mg Tab) metformin (metformin 500 mg Tab) omeprazole (omeprazole 40 mg Cap-DR) Procedures Performed Arthroscopy, back surgery, Carpal tunnel release, hand and elbow surgery, Hand tendon repaired. Discharge Vitals Temperature (Oral) 36.8 ?C Heart Rate (Peripheral) 96 Respiratory Rate 16 Blood Pressure 158/94 Height 174.5 cm Height 69 in Weight 113.4 kg Weight 249.48 lb BMI 37.24 What to do next Scheduled Follow-Up Appointments Tuesday 9:00 AM EST With: Manolo ALLEN MD Where: [facility] Invalid Interpretation Code [address] [place] [address]- \.br\ Tuesday 2:40 PM EST \.br\ With: Jose Melchor MD\.br\ Where: [facility] CHEMISTRYOrdered By: SYSTEM SYSTEM on 05-16-2023 Albumin [Mass/Vol] 3.4 g/dL Normal 3.3 - 5.0 gm/dL [facility] Remisol Albumin/Globulin [Mass ratio] 0.8 {ratio} Low 1.1 - 2.2 [facility] Remisol ALP [Catalytic activity/Vol] 80 [iU]/d Normal 21 - 98 Int._Unit/L [facility] Remisol ALT No additional P-5'-P [Catalytic activity/Vol] 19 [iU]/d Normal 6 - 46 Int._Unit/L [facility] Remisol Anion gap [Moles/Vol] 16 mmol/L Normal 6 - 16 mEq/L [facility] AST [Catalytic activity/Vol] 19 [iU]/d Normal 5 - 43 Int._Unit/L [facility] Bilirubin [Mass/Vol] 1.1 mg/dL Normal 0.0 - 1.1 mg/dL [facility] Calcium [Mass/Vol] 8.6 mg/dL Low 8.9 - 11.1 mg/dL [facility] Chloride [Moles/Vol] 94 mmol/L Low 101 - 111 mmol/L [facility] CO2 [Moles/Vol] 31 mmol/L Normal 21 - 31 mmol/L [facility] Creatinine [Mass/Vol] 1.3 mg/dL Normal 0.5 - 1.3 mg/dL [facility] GFR/1.73 sq M.predicted among non-blacks MDRD (S/P/Bld) [Vol rate/Area] 59 mL/min/1.73 m2 Normal >=59mL/min/1.73 m2 [facility] Chem S Comment on above: Interpretive Data: C hronic kidney disease could be indicated at eGFR's of less than 60 mL/min/1.73m2. Kidney failure is indicated at less than 15 mL/min/1.73m2. Globulin (S) [Mass/Vol] 4.1 g/dL High 1.4 - 4.0 gm/dL [facility] Glucose [Mass/Vol] 337 mg/dL High 55 - 199 mg/dL [facility] Comment on above: Interpretive Data: I f this glucose result represents a fasting glucose, interpretation should refer to the following reference range: 55-99 mg/dL Potassium [Moles/Vol] 2.9 mmol/L Low 3.5 - 5.3 mmol/L [facility] Protein [Mass/Vol] 7.5 g/dL Normal 6.0 - 7.8 gm/dL [facility] Remisol Sodium [Moles/Vol] 138 mmol/L Normal 135 - 145 mmol/L [facility] Remisol Urea nitrogen [Mass/Vol] 16 mg/dL Normal 5 - 21 mg/dL [facility] Remisol Urea nitrogen/Creatinine [Mass ratio] 12 mg/mg Normal 10 - 20 [facility] Remisol CHEMISTRYOrdered By: Isidro mejia on 05-16-2023 HbA1c (Bld) [Mass fraction] 9.6 % High <=5.9% [facility] ChemAutoSS CMPon 05-16-2023 Albumin [Mass/Vol] 3.4 g/dL Normal 3.3-5.0 [facility] Comment on above: Performed By: #### 2 [id number], [id number], [id number] ####[facility] [address] [place] [address] Albumin/Globulin (S) [Mass conc ratio] 0.8 Low 1.1-2.2 [facility] Comment on above: Performed By: #### 2 [id number], [id number], [id number] ####[facility] [address] [place] [address] ALP [Catalytic activity/Vol] 80 Int._Unit/L Normal 21-98 [facility] Comment on above: Performed By: #### 2 732127, [id number], [id number] ####[facility] [address] [place] [address] ALT No additional P-5'-P [Catalytic activity/Vol] 19 Int._Unit/L Normal 6-46 [facility] Comment on above: Performed By: #### 2 [id number], [id number], [id number] ####[facility] [address] [place] [address] Anion gap [Moles/Vol] 16 mmol/L Normal 6-16 [facility] Comment on above: Performed By: #### 2 747530, [id number], [id number] ####[facility] [address] [place] [address] AST [Catalytic activity/Vol] 19 Int._Unit/L Normal 5-43 [facility] Comment on above: Performed By: #### 2 223970, [id number], [id number] ####[facility] [address] [place] [address] Bilirubin [Mass/Vol] 1.1 mg/dL Normal 0.0-1.1 [facility] Comment on above: Performed By: #### 2 649548, [id number], [id number] ####[facility] [address] [place] [address] Calcium [Mass/Vol] 8.6 mg/dL Low 8.9-11.1 [facility] Comment on above: Performed By: #### 2 723517, [id number], [id number] ####[facility] [address] [place] [address] Chloride [Moles/Vol] 94 mmol/L Low 101-111 [facility] Comment on above: Performed By: #### 2 832965, [id number], [id number] ####[facility] [address] [place] [address] CO2 [Moles/Vol] 31 mmol/L Normal 21-31 [facility] Comment on above: Performed By: #### 2 281018, [id number], [id number] ####[facility] [address] [place] [address] Creatinine [Mass/Vol] 1.3 mg/dL Normal 0.5-1.3 [facility] Comment on above: Performed By: #### 2 926325, [id number], [id number] ####[facility] [address] [place] [address] Globulin (S) [Mass/Vol] 4.1 g/dL High 1.4-4.0 [facility] Comment on above: Performed By: #### 2 041884, [id number], [id number] ####[facility] [address] [place] [address] Glucose [Mass/Vol] 337 mg/dL High 55-199 [facility] Comment on above: Result Comment: If t his glucose result represents a fasting glucose, interpretation should refer to the following reference range: 55-99 mg/dL Performed By: #### 2 [id number], [id number], [id number] ####[facility] [address] [place] [address] Potassium [Moles/Vol] 2.9 mmol/L Low 3.5-5.3 [facility] Comment on above: Performed By: #### 2 912345, [id number], [id number] ####[facility] [address] [place] [address] Protein [Mass/Vol] 7.5 g/dL Normal 6.0-7.8 [facility] Comment on above: Performed By: #### 2 815263, [id number], [id number] ####[facility] [address] [place] [address] Sodium [Moles/Vol] 138 mmol/L Normal 135-145 [facility] Comment on above: Performed By: #### 2 186637, [id number], [id number] ####[facility] [address] [place] [address] Urea nitrogen [Mass/Vol] 16 mg/dL Normal 5-21 [facility] Comment on above: Performed By: #### 2 714214, [id number], [id number] ####[facility] [address] [place] [address] Urea nitrogen/Creatinine [Mass ratio] 12 No Units Normal 10-20 [facility] Comment on above: Performed By: #### 2 737211, [id number], [id number] ####[facility] [address] [place] [address] Family Medicine Office/Clini c Noteon 05-16-2023 Family Medicine Office/Clinic Note HPI Staff Clarence is a 68 year old male presenting for 3 month follow up DM Do you have any of the following symptoms? Foot Exam: UTD Eye Exam: due Last A1C: Hgb A1C %: 8.4 % High (01/20/23 08:46:00) Statin: atorvastatin 20mg flu: UTD questions/concerns: need the glipizide and omeprazole refilled to [facility], you changed the glipizide to bid and he ran out a week ago as he was doubling the one a day dose he had at home Saw Christy for UTI and he's not sure it's cleared up U/A done and documented in chart History of Present Illness Pt here for follow follow up - Having issues with urination. Having incontinence issues at night. Burning with urination. - Pt has not been checking his BS and states he ran out of medications for his DM. He states it ran out and did not tell anyone. - BP is elevated today. -Has been having some edema Review of Systems PHQ Score Initial Depression Screen Score: 1 SCORE Physical Exam Vitals & Measurements T: 36.8 ?C(Oral) HR: 96(Peripheral) RR: 16 BP: 158/94 SpO2: 97% HT: 69 in HT: 174.5 cm WT: 113.4 kg WT: 249.48 lb BMI: 37.24 General: alert, no acute distress ENMT: oral mucosa moist, Cardiovascular: regular rate and rhythm, normal peripheral perfusion Respiratory: Lungs CTA, respirations non labored Extremities: no deformity, no trauma, 2+ pitting edema Neurological: oriented x 4, LOC appropriate for age, CN II-XII intact, motor strength equal & normal bilaterally, speech normal Abdomen: Soft, Nontender, Non-distended, + BS Assessment/Plan 1. Type 2 diabetes mellitus without complication, without long-term current use of insulin (E11.9: Type 2 diabetes mellitus without complications) ? Patient did not pickup driver his medication despite being at [facility]. ?We will resend today. ?Will recheck A1c today. Ordered: Comprehensive Metabolic Panel HgbA1c 2. Diabetic nephropathy associated with type 2 diabetes mellitus (E11.21: Type 2 diabetes mellitus with diabetic nephropathy) ? Patient needs to follow-up with urology - Continue lisinopril for protection Ordered: Comprehensive Metabolic Panel HgbA1c 3. Type 2 diabetes mellitus with hypercholesterolemia (E11.69: Type 2 diabetes mellitus with other specified complication) - Continue on statin Ordered: Comprehensive Metabolic Panel HgbA1c 4. Urinary frequency (R35.0: Frequency of micturition) - UA is positive -Waiting to get into urology Ordered: Comprehensive Metabolic Panel HgbA1c 5. UTI symptoms (R39.9: Unspecified symptoms and signs involving the genitourinary system) - We will send in antibiotics at this time but concerned that the leukocytosis and blood may be a sign of other issues. Ordered: Comprehensive Metabolic Panel HgbA1c 6. Edema (R60.9: Edema, unspecified) - Given the patient's alcohol abuse and fatigue concern for cardiomyopathy or congestive heart failure - Echo ordered Ordered: Comprehensive Metabolic Panel Echo Transthoracic Complete HgbA1c 7. Fatigue (R53.83: Other fatigue) - As above Ordered: Comprehensive Metabolic Panel Echo Transthoracic Complete HgbA1c 8. Alcohol abuse (F10.10: Alcohol abuse, uncomplicated) - Encourage alcohol cessation done in a weaning manner. If you would like help please let us know. Ordered: Comprehensive Metabolic Panel HgbA1c Orders: cephalexin, 250 mg = 1 cap(s), Oral, QID, X 7 day(s), # 28 cap(s), Refills(s) 0, Pharmacy: [facility], 174.5, cm, 05/16/23 7:26:00 EST, Height/Length Dosing, 113.4, kg, 05/16/23 7:26:00 EST, Weight Dosing glipiZIDE, 5 mg = 1 tab(s), Oral, BID, # 90 tab(s), Refills(s) 1, Pharmacy: [facility], 174.5, cm, 05/16/23 7:26:00 EST, Height/Length Dosing, 113.4, kg, 05/16/23 7:26:00 EST, Weight Dosing Total time spent preparing for the encounter, evaluating and assessing the patient, documenting the visit, and ordering appropriate follow-up work was 40 minutes. Follow-up No qualifying data available Problem List/Past Medical History Ongoing Alcohol abuse Diabetic nephropathy associated with type 2 diabetes mellitus Disorder of prostate Edema Fatigue Gastroesophageal reflux disease without esophagitis Hematuria Hypercholesterolemia Primary hypertension Prostate cancer screening Right flank pain Tachycardia Type 2 diabetes mellitus with hypercholesterolemia Type 2 diabetes mellitus without complication, without long-term current use of insulin Urinary frequency UTI symptoms Historical No qualifying data Procedure/Surgical History Arthroscopy, back surgery, Carpal tunnel release, hand and elbow surgery, Hand tendon repaired. Medications atorvastatin 20 mg Tab, 20 mg= 1 tab(s), Oral, Bedtime, 1 refills FreeEventRadaryle Alejandra 2 Flash Glucose Monitoring 14 Day System ([place]), See Instructions Freestyle Alejandra Flash 2 Glucose Monitoring 14 Day System (Sensor), See Instructions glipiZIDE 5 mg Tab, 5 mg= 1 tab(s), Oral, BI (more content not included)... Normal [facility] Comment on above: Result Comment: Elec tronically Signed By: Jose Melchor MD\.br\Date and Time Signed: 05/16/23 07:53 EST [id number] 05-16-2023 HbA1c (Bld) [Mass fraction] 9.6 % High <=5.9 [facility] Comment on above: Performed By: #### 2 [id number], [id number], [id number] ####[facility] [address] [place] [address] Pre-Visit Planningon 023 Pre-Visit Planning - From: Valarie Solis To: Jose Melchor MD; Sent: 05/13/2023 14:50:08 EST Subject: Pre-Visit Planning Due Date/Time: 05/13/2023 14:50:00 EST Caller Name: CLARENCE REYES; Caller Number: , Ne Dr. Melchor. During a pre-visit planning chart review, I noted the following documentation in the medical record indicates that this patient had BMI of 37.77 on 04/04/2023 and a diagnosis of Type 2 diabetes mellitus with hypercholesterolemia, GERD, and HTN noted on Current Problem List. If BMI during this current visit is greater than 35: Based on your medical judgment, can you further clarify the following? I can update the Chronic Problem List with your response if you would like. -Morbid obesity (please also include additional diagnosis to reflect current BMI) -Class 3 severe obesity with serious comorbidity in adult (please also include additional diagnosis to reflect current BMI) -Other (please specify): In responding to this request, please exercise your independent professional judgment. The fact that a question is asked does not imply that any particular answer is desired or expected. If you have any questions, please feel free to contact me per TEAMS or . Thank you and have a great weekend! Valarie Solis LPN From: Ruiz REYNOLDS, Jose Thompson To: Valarie Solis; Sent: 05/16/2023 11:31:40 EST Subject: RE: Pre-Visit Planning Caller Name: CLARENCE REYES; Caller Number: Sana , Nicole Ok to add Morbid Obesity Normal [address] [facility] eGFRon 05-16-2023 GFR/1.73 sq M.predicted among non-blacks MDRD (S/P/Bld) [Vol rate/Area] 59 mL/min/1.73 m2 Normal >=59 [facility] Comment on above: Order Comment: Order added by Discern Expert. Result Comment: [employer] sher kidney disease could be indicated at eGFR's of less than 60 mL/min/1.73m2. Kidney failure is indicated at less than 15 mL/min/1.73m2. Performed By: #### 2 [id number], [id number], [id number] ####[facility] [address] [place] [address] C Urineon 04-06-2023 Bacteria identified Cx Nom (U) Microbiology PROCEDURE: Urine Culture [R1] SOURCE: U CleanCatch BODY SITE: COLLECTED DATE/TIME: 04/04/2023 13:03 EDT RECEIVED DATE/TIME: 04/04/2023 17:28 EDT START DATE/TIME: 04/04/2023 17:29 EDT FREE TEXT SOURCE: Christy Crawford Jodi L FINAL REPORTS Final Report [] Verified Date/Time: 04/06/2023 08:38 EDT 50,000 cfu/ml Enterococcus faecalis 200 cfu/ml Mixed skin contaminants SUSCEPTIBILITY RESULTS __ LEGEND: S=Susceptible, N/R=Not Reported, Blank=Data not available, or drug not advisable or tested, I=Intermediate, ESBL=Extended spectrum beta-lactamase, R=Resistant, TFG=Thymidine-dependen t strain, MAGGI=Beta-lactamase positive, EMERSON=mcg/m;(mg/L), S*=Predicted susceptible interp, R*=Predicted resistant interp Entfaeca Antibiotic EMERSON Dilutn EMERSON Interp Ampicillin <=2 S Ciprofloxacin <=1 S Daptomycin <=1 S Levofloxacin <=1 S Linezolid <=2 S Nitrofurantoin <=32 S Penicillin 2 S Rifampin 2 I Tetracycline >8 R Vancomycin 1 S Performing Locations R1: This test was performed at: [facility], [address] [place] [address], [facility] , , [facility] Comment on above: Performed By: #### 2 [id number] ####[place] [address] [facility] - MIS [id number] 00 [id number]#[id number] 0TIFF [facility] Ambulatory Visit Summaryon 1 Ambulatory Visit Summary CLARENCE REYES :1955 Visit Date:04/04/2023 Ambulatory Visit Instructions Your Diagnosis Urinary frequency Hematuria Right flank pain Prostate cancer screening BMI 38.0-38.9,adult Former smoker Tests Performed Urnls Dip Stick Non-Auto w/o Micrscpy POC 80194 Your Care Team Attending Physician - Christy Crawford Primary Care Physician - Jose Melchor MD This Is Your Medications List Misc Prescription (Freestyle Alejandra 2 Flash Glucose Monitoring 14 Day System ([place])) Misc Prescription (Freestyle Alejandra Flash 2 Glucose Monitoring 14 Day System (Sensor)) atorvastatin (atorvastatin 20 mg Tab) glipiZIDE (glipiZIDE 5 mg Tab) hydrochlorothiazide-li sinopril (hydrochlorothiazide-l isinopril 12.5 mg-20 mg Tab) metformin (metformin 500 mg Tab) omeprazole (omeprazole 40 mg Cap-DR) sulfamethoxazole-trime thoprim (sulfamethoxazole-trim ethoprim 800 mg-160 mg Tab) Procedures Performed Arthroscopy, back surgery, Carpal tunnel release, hand and elbow surgery, Hand tendon repaired. Discharge Vitals Heart Rate (Peripheral) 102 Respiratory Rate 18 Blood Pressure 162/106 Height 174.5 cm Height 69 in Weight 115.0 kg Weight 253 lb BMI 37.77 What to do next Scheduled Follow-Up Appointments Tuesday 7:20 AM EST With: Jose Melchor MD Where: [facility] Invalid Interpretation Code [address] [place] [address]- \.br\ Tuesday 2:40 PM EST \.br\ With: Jose Melchor MD\.br\ Where: [facility] Ambulatory Visit Summary CLARENCE REYES :1955 Visit Date:04/04/2023 Ambulatory Visit Instructions Your Diagnosis Prostate cancer screening Urinary frequency Hematuria Right flank pain BMI 38.0-38.9,adult Former smoker Your Care Team Attending Physician - Christy Crawford Primary Care Physician - Jose Melchor MD This Is Your Medications List Misc Prescription (Freestyle Alejandra 2 Flash Glucose Monitoring 14 Day System ([place])) Misc Prescription (Freestyle Alejandra Flash 2 Glucose Monitoring 14 Day System (S[place])) atorvastatin (atorvastatin 20 mg Tab) glipiZIDE (glipiZIDE 5 mg Tab) hydrochlorothiazide-li sinopril (hydrochlorothiazide-l isinopril 12.5 mg-20 mg Tab) metformin (metformin 500 mg Tab) omeprazole (omeprazole 40 mg Cap-DR) sulfamethoxazole-trime thoprim (sulfamethoxazole-trim ethoprim 800 mg-160 mg Tab) Procedures Performed Arthroscopy, back surgery, Carpal tunnel release, hand and elbow surgery, Hand tendon repaired. Discharge Vitals Heart Rate (Peripheral) 102 Respiratory Rate 18 Blood Pressure 162/106 Height 174.5 cm Height 69 in Weight 115.0 kg Weight 253 lb BMI 37.77 What to do next Scheduled Follow-Up Appointments Tuesday 7:20 AM EST With: Jose Melchor MD Where: [facility] Invalid Interpretation Code [address] [place] [address]- \.br\ Tuesday 2:40 PM EST \.br\ With: Jose Melchor MD\.br\ Where: [facility] CHEMISTRYOrdered By: SYSTEM SYSTEM on 04-04-2023 Prostate specific Ag [Mass/Vol] 6.1 ng/mL High 0.1 - 3.5 ng/mL [facility] Remisol Comment on above: Interpretive Data: T he concentration of PSA determined by different manufacturers can vary due to differences in assay methods and reagent specificity. Values obtained from different assay methods cannot be used interchangeably. The methodology used for this result was chemiluminescence using [employer]'s Access Hybritech PSA reagent. Family Medicine Office/Clini c Noteon 04-04-2023 Family Medicine Office/Clinic Note HPI Staff Clarence is a 67 year male presenting for uti symptoms Dysuria: Onset: 1.5 weeks ago Symptoms: nauseated thinking about food, Intermittent right flank pain sharp with walking OTC used: heating pad Last UTI: no history Hx of kidney stones: no UA in office documented in chart Concerns: pt states never started Ozempic due to the cost, Tamsulosin pt stopped taking a month ago stating it wasn't helping. pt states he is up every hour going to the bathroom at night has been going on for over 2 years. pt states he does drink beer night and has around 8 or more. Hasn't ever tried not drinking beer to see if that has helped. Would like a referral to see urologist doesn't want to see lanie/miguel. History of Present Illness pt presents today with c/o urinary frequency, nausea, right flank pain Review of Systems PHQ Score Initial Depression Screen Score: 0 ROS - Provider Constitutional: no fever, no chills, no sweats, no fatigue Respiratory: no shortness of breath, no cough, no orthopnea, no wheezing. Cardiovascular: no chest pain, no palpitations, no edema. Neurologic: no headache, no dizziness, no numbness, no weakness. : right flank pain, urinary frequency, nausea Physical Exam Vitals & Measurements HR: 102(Peripheral) RR: 18 BP: 162/106 SpO2: 98% HT: 69 in HT: 174.5 cm WT: 115.0 kg WT: 253 lb BMI: 37.77 General: alert, no acute distress ENMT: oral mucosa moist, no pharyngeal erythema or exudate Cardiovascular: regular rate and rhythm, normal peripheral perfusion Respiratory: Lungs CTA, respirations non labored Extremities: no deformity, no trauma Neurological: oriented x 4, LOC appropriate for age, CN II-XII intact, motor strength equal & normal bilaterally, speech normal Assessment/Plan 1. Urinary frequency (R35.0: Frequency of micturition) pt c/o urinary frequency. has been to urology but feels he needs to go back. U/A positive in office today. will treat with Bactrim. KUB ordered. as well as PSA. pt states he is urinating all night long. pt does admit to drinking 8 beers per night. discussed decreasing alcohol intake to decrease frequent urination at night. Pt had MRI of back and was told his bladder was enlarged Will refer to urology for further evaluation. all questions answered. RTC as needed Ordered: [facility] Internal Ambulatory Referral PSA Screen, Total 2. Hematuria (R31.9: Hematuria, unspecified) Large amount of blood noted on U/S strip Ordered: [facility] Internal Ambulatory Referral PSA Screen, Total 3. Right flank pain (R10.9: Unspecified abdominal pain) order for KUB given and faxed to [facility] Ordered: [facility] Internal Ambulatory Referral 4. Prostate cancer screening (Z12.5: Encounter for screening for malignant neoplasm of prostate) PSA drawn in office today Ordered: [facility] Internal Ambulatory Referral PSA Screen, Total 5. BMI 38.0-38.9,adult (Z68.38: Body mass index [BMI] 38.0-38.9, adult) BMI education complete Ordered: [facility] Internal Ambulatory Referral PSA Screen, Total 6. 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 Medications atorvastatin 20 mg Tab, 20 mg= 1 tab(s), Oral, Bedtime, 1 refills Freestyle Alejandra 2 Flash Glucose Monitoring 14 Day System ([place]), See Instructions Freestyle Alejandra Flash 2 Glucose Monitoring 14 Day System ([place]), See Instructions glipiZIDE 5 mg Tab, 5 mg= 1 tab(s), Oral, Daily, 1 refills hydrochlorothiazide-li sinopril 12.5 mg-20 mg Tab, 1 tab(s), Oral, Daily, 3 refills metformin 500 mg Tab, 1000 mg= 2 tab(s), Oral, Daily, 3 refills omeprazole 40 mg Cap-DR, 40 mg= 1 cap(s), Oral, Daily sulfamethoxazole-trime thoprim 800 mg-160 mg Tab, 1 tab(s), Oral, BID Allergies CeleBREX (Unknown) Social History Alcohol - Medium Risk, 11/15/2012 Beer, Daily, 3.00 drinks/episode maximum. Alcohol use interferes with work or home: No. Drinks more than intended: No. Others hurt by drinking: No. Ready to change: No. Household alcohol concerns: No., 11/15/2012 Substance Abuse - Denies Substance Abuse, 11/15/2012 Tobacco - Low Risk, 06 (more content not included)... Normal [facility] Comment on above: Result Comment: Elec tronically Signed By: Christy Crawford\.oliver\Date and Time Signed: 04/04/23 09:48 EDT PSA Screen, Totalon 04-04-20 23 Prostate specific Ag [Mass/Vol] 6.1 ng/mL High 0.1-3.5 [facility] Comment on above: Result Comment: The concentration of PSA determined by different manufacturers can vary due to differences in assay methods and reagent specificity. Values obtained from different assay methods cannot be used interchangeably. The methodology used for this result was chemiluminescence using [employer]'s [employer] Hybritech PSA reagent. Performed By: #### [id number] ####[facility] [id number] [place] [address] Physician Referralon 023 Physician Referral [id number] 01 [id number]. [id number] Normal [facility] Ambulatory Visit Summaryon 0 02-14-2023 Ambulatory Visit Summary CLARENCE REYES :1955 Visit Date:02/14/2023 Ambulatory Visit Instructions Your Diagnosis Type 2 diabetes mellitus without complication, without long-term current use of insulin Diabetic nephropathy associated with type 2 diabetes mellitus Primary hypertension Gastroesophageal reflux disease without esophagitis BMI 38.0-38.9,adult Class 1 obesity due to excess calories in adult Your Care Team Attending Physician - Jose Melchor MD Primary Care Physician - Jose Melchor MD This Is Your Medications List Misc Prescription (Freestyle Alejandra 2 Flash Glucose Monitoring 14 Day System ([place])) Misc Prescription (Freestyle Alejandra Flash 2 Glucose Monitoring 14 Day System ([place])) atorvastatin (atorvastatin 20 mg Tab) glipiZIDE (glipiZIDE 5 mg Tab) semaglutide (Ozempic 2 mg/3 mL (0.25 mg or 0.5 mg dose) subcutaneous solution) Contact prescribing physician if questions or concerns hydrochlorothiazide-li sinopril (hydrochlorothiazide-l isinopril 12.5 mg-20 mg Tab) metformin (metformin 500 mg Tab) omeprazole (omeprazole 40 mg Cap-DR) tamsulosin (tamsulosin 0.4 mg Cap) [Image Removed: STOP]Stop taking these medications multivitamin (Multiple Vitamins Tab) multivitamin (Vitamin B Complex oral capsule) Procedures Performed Arthroscopy, back surgery, Carpal tunnel release, hand and elbow surgery, Hand tendon repaired. Discharge Vitals Temperature (Oral) 36.6 ?C Heart Rate (Peripheral) 106 Respiratory Rate 18 Blood Pressure 136/82 Height 174.5 cm Height 69 in Weight 115.8 kg Weight 254.76 lb BMI 38.03 What to do next Scheduled Follow-Up Appointments Tuesday 7:20 AM EST With: Jose Melchor MD Where: [facility] Invalid Interpretation Code [address] [place] [address]- \.br\ Tuesday 2:40 PM EST \.br\ With: Jose Melchor MD\.br\ Where: [facility] Family Medicine Office/Clini c Noteon 02-14-2023 Family Medicine Office/Clinic Note HPI Staff patient presents to follow up for labs, bd sugar elevated Do you have any of the following symptoms? Foot Exam: UTD Eye Exam: due Last A1C: Hgb A1C %: 8.4 % High (01/20/23 08:46:00) Statin: atorvastatin 20mg FLu vaccine offered, pt prefers to get at [facility] with his History of Present Illness - Here for lab follow up. A1c is not at goal. Patient has been taking his glipizide 5 daily without any issues. Patient does continue to take his metformin as well. Other than the A1c being elevated his renal function has shown proteinuria. Patient is already on an CELINA for this. No issues with blood sugars. Review of Systems PHQ Score Initial Depression Screen Score: 0 Physical Exam Vitals & Measurements T: 36.6 ?C(Oral) HR: 106(Peripheral) RR: 18 BP: 136/82 SpO2: 96% HT: 69 in HT: 174.5 cm WT: 115.8 kg WT: 254.76 lb BMI: 38.03 General: alert, no acute distress ENMT: oral mucosa moist, Cardiovascular: regular rate and rhythm, normal peripheral perfusion Respiratory: Lungs CTA, respirations non labored Extremities: no deformity, no trauma Neurological: oriented x 4, LOC appropriate for age, CN II-XII intact, motor strength equal & normal bilaterally, speech normal Abdomen: Soft, Nontender, Non-distended, + BS Assessment/Plan 1. Type 2 diabetes mellitus without complication, without long-term current use of insulin (E11.9: Type 2 diabetes mellitus without complications) - We will continue on the glipizide and the metformin. We will try to get Ozempic covered and will start at the lower dose and titrate up. We will also work on getting a CGM for the patient. Ordered: Misc Prescription, Freestyle Alejandra 2 Flash Glucose Monitoring 14 Day System ([place]), See Instructions, 1 EA, 0, Freestyle Alejandra Flash Glucose Monitoring 14 Day System ([place]), [id number], Supply, 174.5, cm, 02/14/23 7:27:00 EDT, Height/Length Dosing, 115.8, kg... Misc Prescription, Freestyle Alejandra Flash 2 Glucose Monitoring 14 Day System ([place]), See Instructions, 6 EA, 0, Freestyle Alejandra Flash Glucose Monitoring 14 Day System ([place]). Replace sensor every 14 days., [id number], Supply, 174.5, cm, 02/14/23 7:27:00 EDT,... Body Mass Index (BMI) documented 3008F Current tobacco non-user 1036F Depression Screening Negative 3352F Influenza immunization status assessed 1030F Most recent diastolic blood pressure 80-89 mm Hg 3079F Patient screen for fall risk: no falls in last year or 1 fall with no injury in last year 1101F Systolic BP 130-139 mm Hg (Most Recent) 3075F 2. Diabetic nephropathy associated with type 2 diabetes mellitus (E11.21: Type 2 diabetes mellitus with diabetic nephropathy) Patient is already on an CELINA. If we get the patient's A1c under control and still continues to have proteinuria will increase the CELINA. Ordered: Misc Prescription, Freestyle Alejandra 2 Flash Glucose Monitoring 14 Day System ([place]), See Instructions, 1 EA, 0, Freestyle Alejandra Flash Glucose Monitoring 14 Day System ([place]), [id number], Supply, 174.5, cm, 02/14/23 7:27:00 EDT, Height/Length Dosing, 115.8, kg... Misc Prescription, Freestyle Alejandra Flash 2 Glucose Monitoring 14 Day System ([place]), See Instructions, 6 EA, 0, Freestyle Alejandra Flash Glucose Monitoring 14 Day System ([place]). Replace sensor every 14 days., [id number], Supply, 174.5, cm, 02/14/23 7:27:00 EDT,... Body Mass Index (BMI) documented 3008F Current tobacco non-user 1036F Depression Screening Negative 3352F Influenza immunization status assessed 1030F Most recent diastolic blood pressure 80-89 mm Hg 3079F Patient screen for fall risk: no falls in last year or 1 fall with no injury in last year 1101F Systolic BP 130-139 mm Hg (Most Recent) 3075F 3. Primary hypertension (I10: Essential (primary) hypertension) - At goal today. Ordered: Misc Prescription, Freestyle Alejandra 2 Flash Glucose Monitoring 14 Day System ([place]), See Instructions, 1 EA, 0, Freestyle Alejandra Flash Glucose Monitoring 14 Day System ([place]), [id number], Supply, 174.5, cm, 02/14/23 7:27:00 EDT, Height/Length Dosing, 115.8, kg... Misc Prescription, Freestyle Alejandra Flash 2 Glucose Monitoring 14 Day System ([place]), See Instructions, 6 EA, 0, Freestyle Alejandra Flash Glucose Monitoring 14 Day System ([place]). Replace sensor every 14 days., [id number], Supply, 174.5, cm, 02/14/23 7:27:00 EDT,... Body Mass Index (BMI) documented 3008F Current tobacco non-user 1036F Depression Screening Negative 3352F Influenza immunization status assessed 1030F Most recent diastolic blood pressure 80-89 mm Hg 3079F Patient screen for fall risk: no falls in last year or 1 fall with no injury in last year 1101F Systolic BP 130-139 mm Hg (Most Recent) 3075F 4. Gastroesophageal reflux disease without esophagitis (K21.9: Gastro-esophageal reflux disease without esophagitis) - No issues at this time we will have to monitor on the Ozempic. Ordered: [facility] Prescription, Freestyle Alejandra 2 (more content not included)... Normal [facility] Comment on above: Result Comment: Elec tronically Signed By: Ruiz REYNOLDS, Jose Thompson\.br\Date and Time Signed: 02/14/23 07:47 EDT Patient Educationon 02-15-20 Patient Education Cardiovascular Hypertension, Adult High blood pressure (hypertension) is when the force of blood pumping through the arteries is too strong. The arteries are the blood vessels that carry blood from the heart throughout the body. Hypertension forces the heart to work harder to pump blood and may cause arteries to become narrow or stiff. Untreated or uncontrolled hypertension can lead to a heart attack, heart failure, a stroke, kidney disease, and other problems. A blood pressure reading consists of a higher number over a lower number. Ideally, your blood pressure should be below 120/80. The first ( top ) number is called the systolic pressure. It is a measure of the pressure in your arteries as your heart beats. The second ( bottom ) number is called the diastolic pressure. It is a measure of the pressure in your arteries as the heart relaxes. What are the causes? The exact cause of this condition is not known. There are some conditions that result in high blood pressure. What increases the risk? Certain factors may make you more likely to develop high blood pressure. Some of these risk factors are under your control, including: ? Smoking. ? Not getting enough exercise or physical activity. ? Being overweight. ? Having too much fat, sugar, calories, or salt (sodium) in your diet. ? Drinking too much alcohol. Other risk factors include: ? Having a personal history of heart disease, diabetes, high cholesterol, or kidney disease. ? Stress. ? Having a family history of high blood pressure and high cholesterol. ? Having obstructive sleep apnea. ? Age. The risk increases with age. What are the signs or symptoms? High blood pressure may not cause symptoms. Very high blood pressure (hypertensive crisis) may cause: ? Headache. ? Fast or irregular heartbeats (palpitations). ? Shortness of breath. ? Nosebleed. ? Nausea and vomiting. ? Vision changes. ? Severe chest pain, dizziness, and seizures. How is this diagnosed? This condition is diagnosed by measuring your blood pressure while you are seated, with your arm resting on a flat surface, your legs uncrossed, and your feet flat on the floor. The cuff of the blood pressure monitor will be placed directly against the skin of your upper arm at the level of your heart. Blood pressure should be measured at least twice using the same arm. Certain conditions can cause a difference in blood pressure between your right and left arms. If you have a high blood pressure reading during one visit or you have normal blood pressure with other risk factors, you may be asked to: ? Return on a different day to have your blood pressure checked again. ? Monitor your blood pressure at home for 1 week or longer. If you are diagnosed with hypertension, you may have other blood or imaging tests to help your health care provider understand your overall risk for other conditions. How is this treated? This condition is treated by making healthy lifestyle changes, such as eating healthy foods, exercising more, and reducing your alcohol intake. You may be referred for counseling on a healthy diet and physical activity. Your health care provider may prescribe medicine if lifestyle changes are not enough to get your blood pressure under control and if: ? Your systolic blood pressure is above 130. ? Your diastolic blood pressure is above 80. Your personal target blood pressure may vary depending on your medical conditions, your age, and other factors. Follow these instructions at home: Eating and drinking ? Eat a diet that is high in fiber and potassium, and low in sodium, added sugar, and fat. An example of this eating plan is called the DASH diet. DASH stands for Dietary Approaches to Stop Hypertension. To eat this way: ? Eat plenty of fresh fruits and vegetables. Try to fill one half of your plate at each meal with fruits and vegetables. ? Eat whole grains, such as whole-wheat pasta, brown rice, or whole-grain bread. Fill about one fourth of your plate with whole grains. ? Eat or drink low-fat dairy products, such as skim milk or low-fat yogurt. ? Avoid fatty cuts of meat, processed or cured meats, and poultry with skin. Fill about one fourth of your plate with lean proteins, such as fish, chicken without skin, beans, eggs, or tofu. ? Avoid pre-made and processed foods. These tend to be higher in sodium, added sugar, and fat. ? Reduce your daily sodium intake. Many people with hypertension should eat less than 1,500 mg of sodium a day. ? Do not drink alcohol if: ? Your health care provider tells you not to drink. ? You are , may be , or are planning to become . ? If you drink alcohol: ? Limit how much you have to: ? 0?1 drink a day for women. ? 0?2 drinks a day for men. ? Know how much alcohol is in your drink. In the [place] one drink equals one 12 oz bottle of beer (355 mL), one 5 oz glass of wine (148 mL), or one 1? oz glass (more content not included)... Normal [facility] Ambulatory Visit Summaryon 0 01-20-2023 Ambulatory Visit Summary CLARENCE REYES :1955 Visit Date:01/20/2023 Ambulatory Visit Instructions Your Diagnosis Type 2 diabetes mellitus without complication, without long-term current use of insulin Hypercholesterolemia Gastroesophageal reflux disease without esophagitis BMI 38.0-38.9,adult Class 1 obesity due to excess calories in adult Smokeless tobacco use Alcohol abuse Your Care Team Attending Physician - Jose Melchor MD Primary Care Physician - Jose Melchor MD This Is Your Medications List atorvastatin (atorvastatin 20 mg Tab) glipiZIDE (glipiZIDE 5 mg Tab) hydrochlorothiazide-li sinopril (hydrochlorothiazide-l isinopril 12.5 mg-20 mg Tab) metformin (metformin 500 mg Tab) multivitamin (Multiple Vitamins Tab) multivitamin (Vitamin B Complex oral capsule) omeprazole (omeprazole 40 mg Cap-DR) tamsulosin (tamsulosin 0.4 mg Cap) Procedures Performed Arthroscopy, back surgery, Carpal tunnel release, hand and elbow surgery, Hand tendon repaired. Discharge Vitals Temperature (Oral) 37.0 ?C Heart Rate (Peripheral) 102 Respiratory Rate 16 Blood Pressure 136/84 Height 174.5 cm Height 69 in Weight 115.9 kg Weight 254.98 lb BMI 38.06 What to do next Scheduled Follow-Up Appointments Tuesday 2:00 PM EST With: Where: [facility] Normal [address] [place] [address]- \.br\ Medications\.br\ What How Much When Instructions\.br\ Unchanged atorvastatin (atorvastatin 20 mg Tab) 1 Tablets By Mouth At bedtime\.br\ Unchanged glipiZIDE (glipiZIDE 5 mg Tab) See instructions Take one orally in the morning if blood sugar is > 170 \.br\ Unchanged hydrochlorothiazi de-lisinopril (hydrochlorothiaz ervin-lisinopril 12.5 mg-20 mg Tab) 1 Tablets By Mouth Every day\.br\ Unchanged metformin (metformin 500 mg Tab) 2 Tablets By Mouth Every day Duration: 90 Days\.br\ Unchanged multivitamin (Multiple Vitamins Tab) 1 Tablets By Mouth Every day\.br\ Unchanged multivitamin (Vitamin B Complex oral capsule) 1 Capsules By Mouth Every day\.br\ Unchanged omeprazole (omeprazole 40 mg Cap-DR) 1 Capsules By Mouth Every day\.br\ Unchanged tamsulosin (tamsulosin 0.4 mg Cap) 1 Capsules By Mouth At bedtime\.br\ Allergies\.br\ CeleBREX (Unknown)\.br\ Problems\.br\ Ongoing - Any problem that you are currently receiving treatment for.\.br\ Alcohol abuse\.br\ Disorder of prostate\.br\ Gastroesophageal reflux disease without esophagitis\.br\ HTN (hypertension)\.b r\ Hypercholesterole luis\.br\ Type 2 diabetes mellitus without complication, without long-term current use of insulin\.br\ \.br\ [facility] Ambulatory Visit Summary CLARENCE REYES Bharathi :1955 Visit Date:01/20/2023 Ambulatory Visit Instructions Your Diagnosis Type 2 diabetes mellitus without complication, without long-term current use of insulin Hypercholesterolemia Gastroesophageal reflux disease without esophagitis BMI 38.0-38.9,adult Class 1 obesity due to excess calories in adult Smokeless tobacco use Your Care Team Attending Physician - Jose Melchor MD Primary Care Physician - Jose Melchor MD This Is Your Medications List atorvastatin (atorvastatin 20 mg Tab) glipiZIDE (glipiZIDE 5 mg Tab) hydrochlorothiazide-li sinopril (hydrochlorothiazide-l isinopril 12.5 mg-20 mg Tab) metformin (metformin 500 mg Tab) multivitamin (Multiple Vitamins Tab) multivitamin (Vitamin B Complex oral capsule) omeprazole (omeprazole 40 mg Cap-DR) tamsulosin (tamsulosin 0.4 mg Cap) Procedures Performed Arthroscopy, back surgery, Carpal tunnel release, hand and elbow surgery, Hand tendon repaired. Discharge Vitals Temperature (Oral) 37.0 ?C Heart Rate (Peripheral) 102 Respiratory Rate 16 Blood Pressure 136/84 Height 174.5 cm Height 69 in Weight 115.9 kg Weight 254.98 lb BMI 38.06 What to do next Scheduled Follow-Up Appointments Tuesday 2:00 PM EST With: Where: [facility] Normal [address] [id number]- \.br\ Medications\.br\ What How Much When Instructions\.br\ Unchanged atorvastatin (atorvastatin 20 mg Tab) 1 Tablets By Mouth At bedtime\.br\ Unchanged glipiZIDE (glipiZIDE 5 mg Tab) See instructions Take one orally in the morning if blood sugar is > 170 \.br\ Unchanged hydrochlorothiazi de-lisinopril (hydrochlorothiaz ervin-lisinopril 12.5 mg-20 mg Tab) 1 Tablets By Mouth Every day\.br\ Unchanged metformin (metformin 500 mg Tab) 2 Tablets By Mouth Every day Duration: 90 Days\.br\ Unchanged multivitamin (Multiple Vitamins Tab) 1 Tablets By Mouth Every day\.br\ Unchanged multivitamin (Vitamin B Complex oral capsule) 1 Capsules By Mouth Every day\.br\ Unchanged omeprazole (omeprazole 40 mg Cap-DR) 1 Capsules By Mouth Every day\.br\ Unchanged tamsulosin (tamsulosin 0.4 mg Cap) 1 Capsules By Mouth At bedtime\.br\ Allergies\.br\ CeleBREX (Unknown)\.br\ Problems\.br\ Ongoing - Any problem that you are currently receiving treatment for.\.br\ Disorder of prostate\.br\ Gastroesophageal reflux disease without esophagitis\.br\ HTN (hypertension)\.b r\ Hypercholesterole luis\.br\ Type 2 diabetes mellitus without complication, without long-term current use of insulin\.br\ \.br\ [facility] Auto Diffon 01-20-2023 Basophils/100 WBC (Bld) 0.6 % Normal 0.0-2.0 [facility] Comment on above: Order Comment: Order Added by Discern Expert. Performed By: #### [id number] ####[id number] [place] [address] Basophils/Leukocyte s Auto (Bld) [Pure # fraction] 0.0 E9/L Normal 0.0-0.2 [facility] Comment on above: Order Comment: Order Added by Discern Expert. Performed By: #### 7 [id number], 8005572, 0700997, 2752734, 35891011, 9313996 ####[address] [address] Eosinophils/100 WBC (Bld) 1.8 % Normal 0.0-8.0 [facility] Comment on above: Order Comment: Order Added by Discern Expert. Performed By: #### 7 [id number], 5450674, 5183973, 1776800, 53489287, 7516597 ####[address] [address] Eosinophils/Leukocy megan Auto (Bld) [Pure # fraction] 0.1 E9/L Normal 0.0-0.5 [facility] Comment on above: Order Comment: Order Added by Discern Expert. Performed By: #### 7 [id number], 6434649, 6226364, 5955455, 23060656, 8535718 ####[address] [address] Lymphocytes/100 WBC (Bld) 19.3 % Normal 14.0-50.0 [facility] Comment on above: Order Comment: Order Added by Discern Expert. Performed By: #### 7 [id number], 9093275, 3658633, 6362955, 01938475, 3200181 ####[address] [address] Lymphocytes/Leukocy megan Auto (Bld) [Pure # fraction] 1.1 E9/L Normal 1.0-4.0 [facility] Comment on above: Order Comment: Order Added by Discern Expert. Performed By: #### 7 [id number], 2697232, 8772258, 6047989, 98302275, 5071100 ####[address] [place] [address] Monocytes/100 WBC (Bld) 13.0 % Normal 4.0-14.0 [facility] Comment on above: Order Comment: Order Added by Discern Expert. Performed By: #### 7 70096278, 7938976, 7446809, 9881530, 74206011, 5163868 ####[address] [address] Monocytes/Leukocyte s Auto (Bld) [Pure # fraction] 0.7 E9/L Normal 0.2-1.0 [facility] Comment on above: Order Comment: Order Added by Tamica Expert. Performed By: #### 7 [id number], 5172944, 9507285, 8391999, 53702326, 8126145 ####[address] [address] Neutrophils/100 WBC (Bld) 65.3 % Normal 36.0-75.0 [facility] Comment on above: Order Comment: Order Added by Discern Expert. Performed By: #### 7 61839208, 4412696, 0540627, 1836291, 06273274, 2006035 ####[address] [address] Neutrophils/Leukocy megan Auto (Bld) [Pure # fraction] 3.6 E9/L Normal 2.0-7.5 [facility] Comment on above: Order Comment: Order Added by Discern Expert. Performed By: #### 7 89097073, 1556349, 0966646, 4352312, 91853265, 5935237 ####[address] [place] [address] CBC w/ Auto Diffon 3 Erythrocyte distribution width (RBC) [Ratio] 12.8 % Normal 10.9-14.2 [facility] Comment on above: Performed By: #### 7 72863091, 3592287, 9375399, 2715119, 01095692, 0051332 ####[address] [address] Hematocrit (Bld) [Volume fraction] 36.6 % Low 37.7-49.0 [facility] Comment on above: Performed By: #### 7 18859357, 9314118, 3967830, 2995429, 76102899, 9456373 ####[address] [address] Hemoglobin (Bld) [Mass/Vol] 12.8 g/dL Low 13.5-17.5 [facility] Comment on above: Performed By: #### 7 87897730, 9530371, 0002903, 5725851, 48894095, 6910276 ####[address] [address] MCH (RBC) [Entitic mass] 33.7 pg Normal 27.0-34.0 [facility] Comment on above: Performed By: #### 7 02956491, 8857228, 5800618, 2277801, 03338707, 9205606 ####[address] [address] MCHC (RBC) [Mass/Vol] 34.9 g/dL Normal 31.4-36.0 [facility] Comment on above: Performed By: #### 7 75081787, 2743643, 1164071, 6364742, 52817277, 4766815 ####[address] [address] MCV (RBC) [Entitic vol] 96.4 fL Normal 80.0-100.0 [facility] Comment on above: Performed By: #### 7 92849033, 2595991, 6677743, 4850108, 97260176, 8414589 ####[address] [address] Platelet mean volume (Bld) [Entitic vol] 7.6 fL Normal 6.4-10.8 [facility] Comment on above: Performed By: #### 7 41519682, 5503646, 0462711, 7375084, 10401579, 1476670 ####[facility] [address] [place] [address] Platelets (Bld) [#/Vol] 284.0 E9/L Normal 150.0-500.0 [facility] Comment on above: Performed By: #### 7 77896039, 4008701, 8640104, 1553906, 56149160, 6084618 ####[facility] [address] [place] [address] RBC (Bld) [#/Vol] 3.8 E12/L Low 4.3-5.9 [facility] Comment on above: Performed By: #### 7 84255575, 7620182, 4679163, 7431131, 02447294, 6370850 ####[facility] [address] [place] [address] WBC corrected for nucl RBC Auto (Bld) [#/Vol] 5.5 E9/L Normal 4.0-11.0 [facility] Comment on above: Performed By: #### 7 50561288, 9114146, 8052739, 9155245, 71448153, 8112112 ####[facility] [address] [place] [address] CHEMISTRYOrdered By: SYSTEM SYSTEM on 01-20-2023 Albumin [Mass/Vol] 3.8 g/dL Normal 3.3 - 5.0 gm/dL [facility] Albumin/Globulin [Mass ratio] 1.1 {ratio} Normal 1.1 - 2.2 [facility] ALP [Catalytic activity/Vol] 95 [iU]/d Normal 21 - 98 Int._Unit/L [facility] ALT No additional P-5'-P [Catalytic activity/Vol] 20 [iU]/d Normal 6 - 46 Int._Unit/L [facility] Anion gap [Moles/Vol] 15 mmol/L Normal 6 - 16 mEq/L [facility] AST [Catalytic activity/Vol] 21 [iU]/d Normal 5 - 43 Int._Unit/L [facility] Bilirubin [Mass/Vol] 0.8 mg/dL Normal 0.0 - 1.1 mg/dL [facility] Calcium [Mass/Vol] 8.6 mg/dL Low 8.9 - 11.1 mg/dL [facility] Chloride [Moles/Vol] 98 mmol/L Low 101 - 111 mmol/L [facility] Cholesterol [Mass/Vol] 162 mg/dL Normal 120 - 200 mg/dL [facility] Cholesterol in HDL [Mass/Vol] 40 mg/dL Invalid Interpretation Code [facility] Cholesterol in LDL [Mass/Vol] 96 mg/dL Normal <=129mg/dL [facility] Cholesterol in VLDL [Mass/Vol] 23 mg/dL Normal 7 - 40 mg/dL [facility] CO2 [Moles/Vol] 27 mmol/L Normal 21 - 31 mmol/L [facility] Creatinine [Mass/Vol] 1.2 mg/dL Normal 0.5 - 1.3 mg/dL [facility] GFR/1.73 sq M.predicted among non-blacks MDRD (S/P/Bld) [Vol rate/Area] 66 mL/min/1.73 m2 Normal >=59mL/min/1.73 m2 [facility] Chem S Globulin (S) [Mass/Vol] 3.6 g/dL Normal 1.4 - 4.0 gm/dL [facility] Glucose [Mass/Vol] 314 mg/dL High 55 - 199 mg/dL [facility] Potassium [Moles/Vol] 4.2 mmol/L Normal 3.5 - 5.3 mmol/L [facility] Protein [Mass/Vol] 7.4 g/dL Normal 6.0 - 7.8 gm/dL [facility] Sodium [Moles/Vol] 136 mmol/L Normal 135 - 145 mmol/L [facility] Triglyceride [Mass/Vol] 116 mg/dL Normal <=149mg/dL [facility] Urea nitrogen [Mass/Vol] 15 mg/dL Normal 5 - 21 mg/dL [facility] Urea nitrogen/Creatinine [Mass ratio] 12 mg/mg Normal 10 - 20 [facility] Remisol CHEMISTRYOrdered By: Isidro Roberts ertolasio on 01-20-2023 Albumin DL <= 20 mg/L (U) [Mass/Vol] 35.7 microgram/mL High 0.0 - 19.0 mcg/mL [facility] Remisol Albumin Elph (U) [Mass fraction] 9.6 mg/dL Invalid Interpretation Code [facility] Remisol Creatinine (U) [Mass/Vol] 43.6 mg/dL Invalid Interpretation Code [facility] Remisol U Prot/Creat Ratio 220.20 mg/gm Cr High 0.00 - 200.00 mg/gm Cr [facility] Remisol CHEMISTRYOrdered By: Noe landeros on 01-20-2023 HbA1c (Bld) [Mass fraction] 8.4 % High <=5.9% [facility] ChemAutoSS CMPon 01-20-2023 Albumin [Mass/Vol] 3.8 g/dL Normal 3.3-5.0 [facility] Comment on above: Performed By: #### 7 [id number], 3091495, 1737437, 7009245, 36398730, 5723222 ####[facility] [address] [place] [address] Albumin/Globulin (S) [Mass conc ratio] 1.1 Normal 1.1-2.2 [facility] Comment on above: Performed By: #### 7 98262277, 9134189, 4986720, 0888916, 10808158, 4687404 ####[facility] [address] [place] [address] ALP [Catalytic activity/Vol] 95 Int._Unit/L Normal 21-98 [facility] Comment on above: Performed By: #### 7 91274333, 4540843, 2691897, 5255406, 48628514, 0641587 ####[facility] [address] [place] [address] ALT No additional P-5'-P [Catalytic activity/Vol] 20 Int._Unit/L Normal 6-46 [facility] Comment on above: Performed By: #### 7 03818880, 8469262, 1055571, 0339744, 49884367, 8779623 ####[facility] [address] [place] [address] Anion gap [Moles/Vol] 15 mmol/L Normal 6-16 [facility] Comment on above: Performed By: #### 7 46893812, 4248862, 6790652, 7685115, 50112403, 6618654 ####[facility] [address] [place] [address] AST [Catalytic activity/Vol] 21 Int._Unit/L Normal 5-43 [facility] Comment on above: Performed By: #### 7 91739961, 0403835, 6333997, 7637293, 40001911, 5329210 ####[facility] [address] [place] [address] Bilirubin [Mass/Vol] 0.8 mg/dL Normal 0.0-1.1 [facility] Comment on above: Performed By: #### 7 35611459, 0735997, 1916956, 0091803, 52636204, 1026482 ####[facility] [address] [place] [address] Calcium [Mass/Vol] 8.6 mg/dL Low 8.9-11.1 [facility] Comment on above: Performed By: #### 7 24330137, 2240065, 0788482, 5494048, 21473552, 9365930 ####[facility] [address] [place] [address] Chloride [Moles/Vol] 98 mmol/L Low 101-111 [facility] Comment on above: Performed By: #### 7 74553052, 6107631, 3407306, 4459114, 40153478, 7129268 ####[facility] [address] [place] [address] CO2 [Moles/Vol] 27 mmol/L Normal 21-31 [facility] Comment on above: Performed By: #### 7 11147697, 0252952, 2681252, 6423334, 26152249, 7657807 ####[facility] [address] [place] [address] Creatinine [Mass/Vol] 1.2 mg/dL Normal 0.5-1.3 [facility] Comment on above: Performed By: #### 7 87319154, 2372522, 2464364, 8518079, 74265094, 0571252 ####[facility] [address] [place] [address] Globulin (S) [Mass/Vol] 3.6 g/dL Normal 1.4-4.0 [facility] Comment on above: Performed By: #### 7 34638676, 3887580, 7307436, 0904284, 01566165, 2596906 ####[facility] [address] [place] [address] Glucose [Mass/Vol] 314 mg/dL High 55-199 [facility] Comment on above: Result Comment: If t his glucose result represents a fasting glucose, interpretation should refer to the following reference range: 55-99 mg/dL Performed By: #### 7 69525984, 2680308, 0004162, 8942900, 80775934, 2609855 ####[facility] [address] [place] [address] Potassium [Moles/Vol] 4.2 mmol/L Normal 3.5-5.3 [facility] Comment on above: Performed By: #### 7 63847184, 0286869, 8982790, 5356941, 09756973, 8130612 ####[facility] [address] [place] [address] Protein [Mass/Vol] 7.4 g/dL Normal 6.0-7.8 [facility] Comment on above: Performed By: #### 7 45175296, 9151698, 5406977, 6407777, 44900699, 1863971 ####[facility] [address] [place] [address] Sodium [Moles/Vol] 136 mmol/L Normal 135-145 [facility] Comment on above: Performed By: #### 7 42060228, 5735095, 1163131, 3746608, 62246196, 8380445 ####[facility] [address] [place] [address] Urea nitrogen [Mass/Vol] 15 mg/dL Normal 5-21 [facility] Comment on above: Performed By: #### 7 29063168, 4048668, 0621224, 6008592, 11418454, 2659863 ####[facility] [address] [place] [address] Urea nitrogen/Creatinine [Mass ratio] 12 No Units Normal 10-20 [facility] Comment on above: Performed By: #### 7 23574511, 6563027, 9778402, 3464578, 15333250, 8424234 ####[facility] [address] [place] [address] Family Medicine Office/Clini c Noteon 01-20-2023 Family Medicine Office/Clinic Note Chief Complaint establish care, DM and HTN HPI Staff Clarence is a 67 years old male here to establish care Establish Care: History:DM,HTN,Hyperch olesterolemia Last provider: Ramila Any recent labs: 07/13/22 Health Maintenance UTD: Colonoscopy: cologard 02/19/21, negative PSA: 0.43/07/13/22 covid: UTD Acute: Current issues/complaints: none History of Present Illness The patient presents for evaluation of multiple medical concerns. Dr. Mcgrath had prescribed him metoprolol, but he did not like the side effects. He never took it. His heart rate is always fast. He does not check his diabetes. He is on metformin and glipizide. His last A1c was under 7. He is on Flomax for his BPH. He denies any other issues with his prostate. The worst time he has is at night even with taking the Flomax. He wakes up every hour. He drinks a lot of beer, probably 6 to 8 every day. Review of Systems PHQ Score Initial Depression Screen Score: 0 Physical Exam Vitals & Measurements T: 37.0 ?C(Oral) HR: 102(Peripheral) RR: 16 BP: 136/84 SpO2: 94% HT: 69 in HT: 174.5 cm WT: 115.9 kg WT: 254.98 lb BMI: 38.06 General: alert, no acute distress ENMT: oral mucosa moist, Cardiovascular: regular rate and rhythm, normal peripheral perfusion Respiratory: Lungs CTA, respirations non labored Extremities: no deformity, no trauma Neurological: oriented x 4, LOC appropriate for age, CN II-XII intact, motor strength equal & normal bilaterally, speech normal Abdomen: Soft, Nontender, Non-distended, + BS Assessment/Plan 1. Type 2 diabetes mellitus without complication, without long-term current use of insulin (E11.9: Type 2 diabetes mellitus without complications) - Was at goal - Will order labs today. - Adjust as needed Ordered: CBC w/ Auto Diff Comprehensive Metabolic Panel HgbA1c Lab Specimen Collect [address] Lipid Panel Microalbumin Level Urine U Protein/Creat Ratio 2. Hypercholesterolemia (E78.00: Pure hypercholesterolemia, unspecified) - Will check labs - Continue on a statin Ordered: CBC w/ Auto Diff Comprehensive Metabolic Panel HgbA1c Lab Specimen Collect [address] Lipid Panel Microalbumin Level Urine U Protein/Creat Ratio 3. Gastroesophageal reflux disease without esophagitis (K21.9: Gastro-esophageal reflux disease without esophagitis) - Continue on Ordered: CBC w/ Auto Diff Comprehensive Metabolic Panel HgbA1c Lab Specimen Collect [address]67 Lipid Panel Microalbumin Level Urine U Protein/Creat Ratio 4. BMI 38.0-38.9,adult (Z68.38: Body mass index [BMI] 38.0-38.9, adult) - BMI education given Ordered: Body Mass Index (BMI) documented 3008F CBC w/ Auto Diff Comprehensive Metabolic Panel Current smokeless tobacco user 1035F Depression Screening Negative 3352F HgbA1c Influenza immunization administered or previously received 4274F Lipid Panel Microalbumin Level Urine Most recent diastolic blood pressure 80-89 mm Hg 3079F Patient screen for fall risk: no falls in last year or 1 fall with no injury in last year 1101F Systolic BP 130-139 mm Hg (Most Recent) 3075F U Protein/Creat Ratio 5. Class 1 obesity due to excess calories in adult (E66.09: Other obesity due to excess calories) - As above Ordered: Body Mass Index (BMI) documented 3008F CBC w/ Auto Diff Comprehensive Metabolic Panel Current smokeless tobacco user 1035F Depression Screening Negative 3352F HgbA1c Influenza immunization administered or previously received 4274F Lipid Panel Microalbumin Level Urine Most recent diastolic blood pressure 80-89 mm Hg 3079F Patient screen for fall risk: no falls in last year or 1 fall with no injury in last year 1101F Systolic BP 130-139 mm Hg (Most Recent) 3075F U Protein/Creat Ratio 6. Smokeless tobacco use (Z72.0: Tobacco use) - Please stop using tobacco Ordered: Body Mass Index (BMI) documented 3008F CBC w/ Auto Diff Comprehensive Metabolic Panel Current smokeless tobacco user 1035F Depression Screening Negative 3352F HgbA1c Influenza immunization administered or previously received 4274F Lipid Panel Microalbumin Level Urine Most recent diastolic blood pressure 80-89 mm Hg 3079F Patient screen for fall risk: no falls in last year or 1 fall with no injury in last year 1101F Systolic BP 130-139 mm Hg (Most Recent) 3075F U Protein/Creat Ratio 7. Alcohol abuse (F10.10: Alcohol abuse, uncomplicated) - Discussed cutting down on EtOH - Will follow up as needed 8. Tachycardia (R00.0: Tachycardia, unspecified) Elevated, normal sinus. Orders: omeprazole, 40 mg = 1 cap(s), Oral, Daily, # 90 cap(s), Refills(s) 0, Pharmacy: [facility], 174.5, cm, 01/20/23 8:03:00 EDT, Height/Length Dosing, 115.9, kg, 01/20/23 8:03:00 EDT, Weight Dosing Follow-up No qualifying data available Problem List/Past Medical History Ongoing Alcohol abuse Disorder of prostate Gastroesophageal reflux disease without eso (more content not included)... Normal [facility] Comment on above: Result Comment: Elec tronically Signed By: Ruiz REYNOLDS, Jose Cordoba.br\Date and Time Signed: 01/20/23 09:02 EDT HEMATOLOGYOrdered By: SYSTEM SYSTEM on 01-20-2023 Basophils/100 WBC (Bld) 0.6 % Normal 0.0 - 2.0 % [facility] HemeAutoSS Basophils/Leukocyte s Auto (Bld) [Pure # fraction] 0.0 E9/L Normal 0.0 - 0.2 E9/L [facility] HemeAutoSS Eosinophils/100 WBC (Bld) 1.8 % Normal 0.0 - 8.0 % [facility] HemeAutoSS Eosinophils/Leukocy megan Auto (Bld) [Pure # fraction] 0.1 E9/L Normal 0.0 - 0.5 E9/L [facility] HemeAutoSS Lymphocytes/100 WBC (Bld) 19.3 % Normal 14.0 - 50.0 % [facility] HemeAutoSS Lymphocytes/Leukocy megan Auto (Bld) [Pure # fraction] 1.1 E9/L Normal 1.0 - 4.0 E9/L [facility] HemeAutoSS Monocytes/100 WBC (Bld) 13.0 % Normal 4.0 - 14.0 % [facility] HemeAutoSS Monocytes/Leukocyte s Auto (Bld) [Pure # fraction] 0.7 E9/L Normal 0.2 - 1.0 E9/L [facility] HemeAutoSS Neutrophils/100 WBC (Bld) 65.3 % Normal 36.0 - 75.0 % [facility] HemeAutoSS Neutrophils/Leukocy megan Auto (Bld) [Pure # fraction] 3.6 E9/L Normal 2.0 - 7.5 E9/L [facility] HemeAutoSS HEMATOLOGYOrdered By: Makenzie Martinez on 01-20-2023 Erythrocyte distribution width (RBC) [Ratio] 12.8 % Normal 10.9 - 14.2 % [facility] HemeAutoSS Hematocrit (Bld) [Volume fraction] 36.6 % Low 37.7 - 49.0 % [facility] HemeAutoSS Hemoglobin (Bld) [Mass/Vol] 12.8 g/dL Low 13.5 - 17.5 gm/dL [facility] HemeAutoSS MCH (RBC) [Entitic mass] 33.7 pg Normal 27.0 - 34.0 pg [facility] HemeAutoSS MCHC (RBC) [Mass/Vol] 34.9 g/dL Normal 31.4 - 36.0 gm/dL [facility] HemeAutoSS MCV (RBC) [Entitic vol] 96.4 fL Normal 80.0 - 100.0 fL [facility] HemeAutoSS Platelet mean volume (Bld) [Entitic vol] 7.6 fL Normal 6.4 - 10.8 fL [facility] HemeAutoSS Platelets (Bld) [#/Vol] 284.0 E9/L Normal 150.0 - 500.0 E9/L [facility] HemeAutoSS RBC (Bld) [#/Vol] 3.8 E12/L Low 4.3 - 5.9 E12/L [facility] HemeAutoSS WBC corrected for nucl RBC Auto (Bld) [#/Vol] 5.5 E9/L Normal 4.0 - 11.0 E9/L [facility] HemeAutoSS HwpB5dso 01-20-2023 HbA1c (Bld) [Mass fraction] 8.4 % High <=5.9 [facility] Comment on above: Performed By: #### 7 [id number], 3078428, 1592993, 6242564, 44418014, 2878844 ####[facility] [address] [place] [address] Lipid Panelon 01-20-2023 Cholesterol [Mass/Vol] 162 mg/dL Normal 120-200 [facility] Comment on above: Performed By: #### 7 39038003, 3302582, 2594341, 0178409, 18692754, 2866355 ####[facility] [address] [place] [address] Cholesterol in HDL [Mass/Vol] 40 mg/dL Invalid Interpretation Code [facility] Comment on above: Result Comment: HDL > or equal to 60 mg/dL: Low cardiovascular risk HDL < 40 mg/dL : High cardiovascular risk Performed By: #### 7 05938059, 8086863, 0738694, 5878719, 37474133, 7527635 ####[facility] [address] [place] [address] Cholesterol in LDL [Mass/Vol] 96 mg/dL Normal <=129 [facility] Comment on above: Performed By: #### 7 11204430, 8635066, 5865232, 8919463, 07240585, 6136053 ####[facility] [address] [place] [address] Cholesterol in VLDL [Mass/Vol] 23 mg/dL Normal 7-40 [facility] Comment on above: Performed By: #### 7 12476469, 5284061, 0237516, 1606271, 78223791, 3366834 ####[facility] [address] [place] [address] Triglyceride [Mass/Vol] 116 mg/dL Normal <=149 [facility] Comment on above: Performed By: #### 7 74280285, 8291140, 9170206, 4316480, 62401225, 0032681 ####[facility] [address] [place] [address] U Microalbon 01-20-2023 Albumin DL <= 20 mg/L (U) [Mass/Vol] 35.7 microgram/mL High 0.0-19.0 [facility] Comment on above: Performed By: #### 1 5271605, [id number] ####[facility] [address] [place] [address] U Protein/Creat Ratioon 01-04 Albumin Elph (U) [Mass fraction] 9.6 mg/dL Invalid Interpretation Code [facility] Comment on above: Result Comment: The reference range and other method performance specifications have not been established for this test; results should be integrated into the clinical context for interpretation. Performed By: #### 1 9001853, [id number] ####[facility] [address] [place] [address] Creatinine (U) [Mass/Vol] 43.6 mg/dL Invalid Interpretation Code [facility] Comment on above: Result Comment: The reference range and other method performance specifications have not been established for this test; results should be integrated into the clinical context for interpretation. Performed By: #### 1 6377845, [id number] ####[facility] [address] [place] [address] U Prot/Creat Ratio 220.20 mg/gm Cr High .00-200.00 F [facility] Comment on above: Performed By: #### 1 4211080, [id number] ####[facility] [address] [place] [address] eGFRon 01-20-2023 GFR/1.73 sq M.predicted among non-blacks MDRD (S/P/Bld) [Vol rate/Area] 66 mL/min/1.73 m2 Normal >=59 [facility] Comment on above: Order Comment: Order added by Discern Expert. Result Comment: [employer] [place] kidney disease could be indicated at eGFR's of less than 60 mL/min/1.73m2. Kidney failure is indicated at less than 15 mL/min/1.73m2. Performed By: #### 7 [id number], 5497276, 9389074, 2216677, 89435809, 1757651 ####[facility] [address] [place] [address] Lab Reportson 01-18-2023 Lab Reports [id number] Normal [facility] CBC AUTO DIFFon 07-13-2022 BASO # 0.1 103/ul Normal 0.0-0.1 [facility] Comment on above: Performed By: #### C BC #### [facility] [address] [place] [address] Dr. Pilo Jansen Basophils/100 WBC (Bld) 1.0 % Normal 0.2-2.0 [facility] Comment on above: Performed By: #### C BC #### [facility] [address] [place] [address] Dr. Pilo Jansen EO # 0.1 103/ul Normal 0.0-0.7 [facility] Comment on above: Performed By: #### C BC #### [facility] [address] [place] [address] Dr. Pilo Jansen Eosinophils/100 WBC (Bld) 2.1 % Normal 0.9-7.0 [facility] Comment on above: Performed By: #### C BC #### [facility] [address] [place] [address] Dr. Pilo Jansen Erythrocyte distribution width (RBC) [Ratio] 12.0 % Normal 11.0-15.0 [facility] Comment on above: Performed By: #### C BC #### [facility] [address] [place] [address] Dr. Pilo Jansen Hematocrit (Bld) [Volume fraction] 40.7 % Critically low 42.0-54.0 [facility] Comment on above: Performed By: #### C BC #### [facility] [address] [place] [address] Dr. Pilo Jansen Hemoglobin (Bld) [Mass/Vol] 13.4 g/dL Critically low 14.0-18.0 [facility] Comment on above: Performed By: #### C BC #### [facility] [address] [place] [address] Dr. Pilo Jansen IG # 0.02 10e3/ul Normal 0.00-0.03 [facility] Comment on above: Performed By: #### C BC #### [facility] Laboratory [address] [place] [address] Dr. Pilo Jansen IG % 0.4 % Normal 0.0-0.5 [facility] Comment on above: Performed By: #### C BC #### [facility] [address] [place] [address] Dr. Pilo Jansen LYMPH # 1.4 103/ul Normal 1.2-3.8 [facility] Comment on above: Performed By: #### C BC #### [facility] [address] [place] [address] Dr. Pilo Jansen Lymphocytes/100 WBC (Bld) 26.1 % Normal 20.5-60.0 [facility] Comment on above: Performed By: #### C BC #### [facility] [address] [place] [address] Dr. Pilo Jansen MANUAL DIFF REQ NO Normal [facility] Comment on above: Performed By: #### C BC #### [facility] [address] [place] [address] Dr. Pilo Jansen MCH (RBC) [Entitic mass] 33.2 pg Normal 25.9-34.0 [facility] Comment on above: Performed By: #### C BC #### [facility] [address] [place] [address] Dr. Pilo Jansen MCHC (RBC) [Mass/Vol] 32.9 g/dL Normal 29.9-35.2 [facility] Comment on above: Performed By: #### C BC #### [facility] [address] [place] [address] Dr. Pilo Jansen MCV (RBC) [Entitic vol] 100.7 fL Critically high 80.0-94.0 [facility] Comment on above: Performed By: #### C BC #### [facility] [address] [place] [address] Dr. Pilo Jansen MONO # 0.5 103/ul Normal 0.3-0.8 [facility] Comment on above: Performed By: #### C BC #### [facility] [address] [place] [address] Dr. iPlo Jansen Monocytes/100 WBC (Bld) 9.6 % Normal 1.7-12.0 [facility] Comment on above: Performed By: #### C BC #### [facility] [address] [place] [address] Dr. Pilo Jansen NEUT # 3.2 103/ul Normal 1.4-6.5 [facility] Comment on above: Performed By: #### C BC #### [facility] [address] [place] [address] Dr. iPlo Jansen Neutrophils/100 WBC (Bld) 60.8 % Normal 43.0-75.0 [facility] Comment on above: Performed By: #### C BC #### [facility] [address] [place] [address] Dr. Pilo Jansen Platelet mean volume (Bld) [Entitic vol] 9.3 fL Critically low 9.5-13.5 [facility] Comment on above: Performed By: #### C BC #### [facility] [address] [place] [address] Dr. Pilo Jansen PLT 204 103/ul Normal 150-450 [facility] Comment on above: Performed By: #### C BC #### [facility] [address] [place] [address] Dr. Pilo Jansen RBC 4.04 106/ul Critically low 4.70-6.10 [facility] Comment on above: Performed By: #### C BC #### [facility] [address] [place] [address] Dr. Pilo Jansen WBC 5.2 103/ul Normal 4.0-11.0 [facility] Comment on above: Performed By: #### C BC #### [facility] [address] [place] [address] Dr. Pilo Jansen GLYCOHEMOGLOBIN A1Con 2022 ADA RECOMMENDATION SEE BELOW Normal [facility] Comment on above: Result Comment: ADA RECOMMENDED LIMIT 4.0 - 6.0 ADA THERAPEUTIC TARGET < 7.0 ACTION SUGGESTED > 7.0 Performed By: #### A 1C #### [facility] [address] [place] [address] Dr. Pilo Jansen Glucose [Mass/Vol] 189 mg/dL Normal [facility] Comment on above: Performed By: #### A 1C #### [facility] [address] [place] [address] Dr. Pilo Jansen HbA1c (Bld) [Mass fraction] 8.2 % Critically high 4.5-6.2 [facility] Comment on above: Performed By: #### A 1C #### [facility] [address] [place] [address] Dr. Pilo Jansen LIPID PROFILEon 07-13-2022 CHOL-HDL RATIO NORM SEE BELOW Normal [facility] Comment on above: Result Comment: 3.3 - 4.4 LOW RISK 4.4 - 7.1 AVERAGE RISK 7.1 - 11.0 MODERATE RISK >11.0 HIGH RISK Performed By: #### L IPID, CMP #### [facility] [address] [place] [address] Dr. Pilo Jansen Cholesterol [Mass/Vol] 157 mg/dL Normal <=200 [facility] Comment on above: Performed By: #### L IPID, CMP #### [facility] [address] [place] [address] Dr. Pilo Jansen Cholesterol in HDL [Mass/Vol] 53 mg/dL Normal 40-60 [facility] Comment on above: Performed By: #### L IPID, CMP #### [facility] [address] [address] [address] Pilo Jansen Cholesterol in LDL [Mass/Vol] 81.8 mg/dL Normal [facility] Comment on above: Performed By: #### L IPID, CMP #### [facility] [address] [address] [address] Pilo Jansen Cholesterol.total/C holesterol in HDL [Mass ratio] 3.0 {ratio} Normal [facility] Comment on above: Performed By: #### L IPID, CMP #### [facility] [address] [place] [address] Dr. Pilo Jansen HDL NORMAL > or = 60 mg/dl - LO W CARDIOVASCULAR RISK <40 mg/dl - HIGH CARDIOVASCULAR RISK Normal [facility] Comment on above: Performed By: #### L IPID, CMP #### [facility] [address] [place] [address] Dr. Pilo Jansen LDL CALC NORMAL SEE BELOW Normal [facility] Comment on above: Result Comment: <100 mg/dl OPTIMAL 100 - 129 mg/dl NEAR OR ABOVE OPTIMAL 130 - 159 mg/dl BORDERLINE HIGH 160 - 189 mg/dl HIGH >190 mg/dl VERY HIGH Performed By: #### L IPID, CMP #### [facility] [address] [place] [address] Dr. Pilo Jansen Triglyceride [Mass/Vol] 111 mg/dL Normal <=150 [facility] Comment on above: Performed By: #### L IPID, CMP #### [facility] [address] [place] [address] Dr. Pilo Jansen VLDL CALC 22.2 mg/dL Normal [facility] Comment on above: Performed By: #### L IPID, CMP #### [facility] [address] [place] [address] Dr. Pilo Jansen PROF 14(COMP METB)on 023 Albumin [Mass/Vol] 3.9 g/dL Normal 3.4-5.0 [facility] Comment on above: Performed By: #### L IPID, CMP #### [facility] [address] [place] [address] Dr. Pilo Jansen Albumin/Globulin [Mass ratio] 1.1 {ratio} Normal [facility] Comment on above: Performed By: #### L IPID, CMP #### [facility] [address] [address] [address] Pilo Jansen ALP [Catalytic activity/Vol] 81 U/L Normal 46-116 [facility] Comment on above: Performed By: #### L IPID, CMP #### [facility] [address] [place] [address] Dr. Pilo Jansen ALT [Catalytic activity/Vol] 28 U/L Normal 16-63 [facility] Comment on above: Performed By: #### L IPID, CMP #### [facility] [address] [place] [address] Dr. Pilo Jansen Anion gap [Moles/Vol] 13.6 mmol/L Normal [facility] Comment on above: Performed By: #### L IPID, CMP #### [facility] [address] [place] [address] Dr. Pilo Jansen AST [Catalytic activity/Vol] 23 U/L Normal 15-37 [facility] Comment on above: Performed By: #### L IPID, CMP #### [facility] [address] [place] [address] Dr. Pilo Jansen Bilirubin [Mass/Vol] 0.8 mg/dL Normal 0.2-1.0 [facility] Comment on above: Performed By: #### L IPID, CMP #### [facility] [address] [place] [address] Dr. Pilo Jansen Calcium [Mass/Vol] 9.3 mg/dL Normal 8.5-10.1 [facility] Comment on above: Performed By: #### L IPID, CMP #### [facility] [address] [place] [address] Dr. Pilo Jansen Chloride [Moles/Vol] 101 mmol/L Normal 98-107 [facility] Comment on above: Performed By: #### L IPID, CMP #### [facility] [address] [address] [address] Pilo Jansen CO2 [Moles/Vol] 29.7 mmol/L Normal 21.0-32.0 [facility] Comment on above: Performed By: #### L IPID, CMP #### [facility] [address] [place] [address] Dr. Pilo Jansen Creatinine [Mass/Vol] 0.86 mg/dL Normal 0.70-1.30 [facility] Comment on above: Performed By: #### L IPID, CMP #### [facility] [address] [address] [address] Pilo Jansen EGFR-AF CITIZEN OF [place] >60 Normal >=60 [facility] Comment on above: Performed By: #### L IPID, CMP #### [facility] [address] [place] [address] Dr. Pilo Jansen EGFR-NON AF CITIZEN OF [place] >60 Normal >=60 [facility] Comment on above: Performed By: #### L IPID, CMP #### [facility] [address] [place] [address] Dr. Pilo Jansen Globulin (S) [Mass/Vol] 3.7 g/dL Normal [facility] Comment on above: Performed By: #### L IPID, CMP #### [facility] [address] [place] [address] Dr. Pilo Jansen Glucose [Mass/Vol] 186 mg/dL Critically high 74-106 [facility] Comment on above: Performed By: #### L IPID, CMP #### [facility] [address] [place] [address] Dr. Pilo Jansen Potassium [Moles/Vol] 4.3 mmol/L Normal 3.5-5.1 [facility] Comment on above: Performed By: #### L IPID, CMP #### [facility] [address] [place] [address] Dr. Pilo Jansen Protein [Mass/Vol] 7.6 g/dL Normal 6.4-8.2 [facility] Comment on above: Performed By: #### L IPID, CMP #### [facility] [address] [address] [address] Pilo Jansen Sodium [Moles/Vol] 140 mmol/L Normal 136-145 [facility] Comment on above: Performed By: #### L IPID, CMP #### [facility] [address] [address] [address] Pilo Jansen Urea nitrogen [Mass/Vol] 10.0 mg/dL Normal 7.0-18.0 [facility] Comment on above: Performed By: #### L IPID, CMP #### [facility] [address] [address] [address] Pilo Jansen Urea nitrogen/Creatinine [Mass ratio] 11.6 mg/mg Normal [facility] Comment on above: Performed By: #### L IPID, CMP #### [facility] [address] [address] [address] Pilo Jansen Vital Signs Date Time Vital Sign Value Performing Clinician Mihaii shani 05-16-2023 07:57-0500 Diastolic blood pressure 90 mm[Hg] Jose Melchor [facility] 05-16-2023 07:57-0500 Mean blood pressure 111 mm[Hg] Jose Melchor [facility] 05-16-2023 07:57-0500 Systolic blood pressure 152 mm[Hg] Jose Melchor [facility] Encounters Encounter Date Encounter Type Care Provider Facility Start: 05-27-2023 End: 05-28-2023 ambulatory Christy Mulligan Facility:[facility] Start: 05-27-2023 End: 05-27-2023 Lab Drop off Christy Mulligan [facility] Start: 05-26-2023 End: 05-27-2023 ambulatory Jose Melchor Facility:[facility] Start: 05-26-2023 End: 05-27-2023 ambulatory Jose Melchor Facility:[facility] Peggy dorman Start: 05-26-2023 End: 05-26-2023 Lab Drop off Jose Melchor [facility] Start: 05-16-2023 End: 05-17-2023 ambulatory Jose Melchor Facility:[facility] Start: 05-16-2023 End: 05-16-2023 Lab Drop off Jose Melchor [facility] Start: 04-25-2023 ambulatory Jose Melchor [facility] Start: 04-06-2023 ambulatory Jose Melchor [facility] Start: 04-04-2023 End: 04-05-2023 ambulatory Christy L Ese Facility:[facility] Start: 04-04-2023 End: 04-04-2023 Lab Drop off Christy L Ese [facility] Start: 04-04-2023 End: 04-05-2023 ambulatory Christy L Ese Facility:[facility] Start: 04-04-2023 End: 04-04-2023 Lab Drop off Christy L Ese [facility] Start: 02-14-2023 End: 02-15-2023 ambulatory Jose Melchor Facility:[facility] Peggy dorman Start: 01-20-2023 End: 01-21-2023 ambulatory Jose Melchor Facility:[facility] Start: 01-20-2023 End: 01-20-2023 Lab Drop off Jose Melchor [facility] Start: 09-16-2022 ambulatory Jose Melchor Facility:[facility] Start: 07-13-2022 End: 07-14-[address] TYRESE MCGRATH Facility:[facility] Procedures Date Procedure Procedure Detail Performing Clinician Start: 07-13-[address] TYRESE RIVERAT Comment on above: Performed By: #### P SAD #### [facility] [address] [place] [address] Dr. Pilo Jansen Arthroscopy Jose Melchor Comment on above: right back surgery 2 Jose Melchor Comment on above: lower back Decompression of med valdo nerve Jose Melchor hand and elbow surgery 3 Marcin Melchor Comment on above: left Hand tendon repaired Jose Melchor Comment on above: left thumb tendon Plan of Treatment Date Care Activity Detail Author Start: 07-25-2023 ambulatory Ambulatory Facility:[facility] Start: 07-11-2023 ambulatory Ambulatory Facility:[facility] Start: 06-13-2023 ambulatory Ambulatory Facility:[facility] Immunizations Immunization Date Immunization Notes Care Provider [facility] 03-16-2023 influenza virus vaccine, unspecified formulation Jose Melchor [facility] 04-05-2022 influenza virus vaccine, unspecified formulation Jose Melchor [facility] 04-05-2022 SARS-CoV-2 (COVID-19 ) [id number] Jose Meclhor [facility] 03-01-2021 influenza virus vaccine, unspecified formulation Jose Melchor [facility] 03-01-2021 SARS-CoV-2 (COVID-19 ) mRNA BNT-162b2 valori Melchor [facility] Comment on above: Result Comment: 2022: [id number] 08-08-2020 SARS-CoV-2 (COVID-19 ) mRNA BNT-162b2 vax Jose Melchor [facility] 07-18-2020 SARS-CoV-2 (COVID-19 ) mRNA BNT-162b2 max Jose Melchor [facility] 03-09-2020 influenza virus vaccine, unspecified formulation [facility] 03-09-2020 pneumococcal conjuga te vaccine, 13 valent Jose Melchor [facility] NEGATED: Highlighted row has not occurred!02-14-2023 influenza virus vaccine, unspecified formulation Christy Mulligan [facility] Payers Date Payer Category Payer Unknown [id number] 1960 Medicare [id number] 1960 Unknown [id number] 1955 Unknown [id number] 2.16.84 [id number] 1954 Unknown [id number] 2.16.8 [id number] 1954 Unknown [id number] 2.16.8 [id number] 1954 Unknown [id number] 2.16.8 [id number] 1954 Unknown [id number] 2.16.8 40.1.746832.3.579.2.727 1954 Unknown [id number] 2.16.8 40.1.367487.3.579.2.727 1954 Unknown [id number] 2.16.8 40.1.538937.3.579.2.727 1954 Unknown [id number] 2.16.8 40.1.889504.3.579.2.727 1954 Unknown [id number] 2.16.8 40.1.016027.3.579.2.727 1954 Unknown [id number] 2.16.8 40.1.754423.3.579.2.727 1954 Unknown [id number] 2.16.8 40.1.510778.3.579.2.727 1954 Unknown [id number] 2.16.8 40.1.994239.3.579.2.727 1954 Unknown [id number] 2.16.8 40.1.817180.3.579.2.727 1954 Unknown [id number] 2.16.8 40.1.375837.3.579.2.727 1954 Unknown [id number] 2.16.8 40.1.297471.3.579.2.727 1954 Unknown [id number] 2.16.8 40.1.535728.3.579.2.727 1954 Unknown [id number] 2.16.8 [id number] 1954 Unknown [id number] 2.16.8 [id number] Social History Date Type Detail Facility Start: 01-20-2023 End: 05-26-2023 Tobacco smoking status Ex-smoker (finding) [facility] Tobacco smoking status Smokeless tobacco user within last 30 days [facility] Sex Assigned At Male [facility] Medical Equipment Procedure Code Equipment Code Equipment Origin al Text Equipment Identifier Dates [facility] Prescription, See Instructions, 100 strip(s), 3, One touch ultra 2 test strips Use to tests sugars once a day Dx E11.9, [facility] Supply, 174.5, cm, 05/26/23 9:14:00 EST, Height/Length Dosing, 109.1, kg, 05/26/23 9:14:00 EST, Weight Dosing Start: 05-26-2023 [facility] Prescription, See Instructions, 100 lancet(s), 3, Soft click lancets Use to test blood sugars once a day Dx E11.9, [facility], 174.5, cm, 05/26/23 9:14:00 EST, Height/Length Dosing, 109.1, kg, 05/26/23 9:14:00 EST, Weight Dosing Start: 05-26-2023 [facility] Prescription, See Instructions, 100 strip(s), 3, One touch ultra 2 test strips Use to tests sugars once a day Dx E11.9, [facility], Supply, 174.5, cm, 05/26/23 9:14:00 EST, Height/Length Dosing, 109.1, kg, 05/26/23 9:14:00 EST, Weight Dosing Start: 05-26-2023 [facility] Prescription, See Instructions, 100 lancet(s), 3, Soft click lancets Use to test blood sugars once a day Dx E11.9, [facility], Supply, 174.5, cm, 05/26/23 9:14:00 EST, Height/Length Dosing, 109.1, kg, 05/26/23 9:14:00 EST, Weight Dosing Start: 05-26-2023 Evaluation + Plan note 06-13-2019 Radiology Note Date & Type Note Facility 06-13-2019 Evaluation + Plan note Future Appointments Appointment Date:06/09/2023 08:00:00 AM Scheduled Provider: Location:.[facility] Appointment Type:CV Echo () Appointment Date:06/13/2023 08:00:00 AM Scheduled Provider:[facility]:FM Open Appointment Date:07/11/2023 09:00:00 AM Scheduled Provider[facility] New Patient Appointment Date:07/27/2023 02:00:00 PM Scheduled Provider: [facility] App[facility] Type:FM Medicare Wellness Subsequent Appointment Date:07/27/2023 02:40:00 PM Scheduled Provider:[facility] Type:FM Open Future Scheduled TestsEcho Transthoracic Complete 06/09/23 [facility] Evaluation + Plan note Note Date & Type Note Facility Evaluation + Plan note Future Appointments Appointment Date:07/27/2023 02:00:00 PM Scheduled [facility]FM Medicare Wellness Subsequent Appointment Date:07/27/2023 02:40:00 PM Scheduled Provider:Jose Melchor MD Location:[facility] Appointment Type: Open [facility] Evaluation + Plan note Note Date & Type Note Facility Evaluation + Plan note Future Appointments Appointment Date:05/16/2023 07:20:00 AM Scheduled Provider:[facility] Type:FM Open Appointment Date:07/27/2023 02:00:00 PM Scheduled Provider: Location:[facility] Appointment Type:FM Medicare Wellness Subsequent Appointment Date:07/27/2023 02:40:00 PM Scheduled Provider:Jose Melchor MD Location:[facility] Appointment Type: Open [facility] Evaluation + Plan note Note Date & Type Note Facility Evaluation + Plan note Future Appointments Appointment Date:05/16/2023 07:20:00 AM Scheduled Provider:Jose [facility] Type:FM Open Appointment Date:07/27/2023 02:00:00 PM Scheduled Provider: Location:[facility] Appointment Type: Medicare Wellness Subsequent Appointment Date:07/27/2023 02:40:00 PM Scheduled Provider:Jose Melchor MD Location:[facility] Appointment Type: Open Diagnostic Tests PendingUrine Culture 04/04/23 [facility] Evaluation + Plan note Radiology Note Date & Type Note Facility Evaluation + Plan note Future Appointments Appointment Date:07/11/2023 09:00:00 AM Scheduled Provider:[facility]EN [facility]O New Patient Appointment Date:07/27/2023 02:00:00 PM Scheduled Provider: [facility] App[facility] Type: Medicare Wellness Subsequent Appointment Date:07/27/2023 02:40:00 PM Scheduled Provider:Jose Melchor MD [facility] App[facility] Type:FM Open Diagnostic Tests PendingUrine Culture 05/16/23 Future Scheduled TestsEcho Transthoracic Complete 05/16/23 [facility] Evaluation + Plan note LaboratoryRadiology Note Date & Type Note Facility Evaluation + Plan note Future Appointments Appointment Date:05/27/2023 08:20:00 AM Scheduled Provider: Location:[facility] Appointment Type:FM Nurse Visit Appointment Date:06/09/2023 08:00:00 AM Scheduled [facility] Echo () Appointment Date:06/13/2023 08:00:00 AM Scheduled Provider:Jose Melchor MD Location:[facility] Appointment Type:FM Open Appointment Date:07/11/2023 09:00:00 AM Scheduled Provider:Manolo ALLEN MD Location:[facility] [place] Appointment Type:URO New Patient Appointment Date:07/27/2023 02:00:00 PM Scheduled Provider: Location:[facility] Appointment Type:FM Medicare Wellness Subsequent Appointment Date:07/27/2023 02:40:00 PM Scheduled Provider:Jose Melchor MD Location:[facility] Appointment Type: Open Diagnostic Tests PendingUrine Culture 05/26/23 Future Scheduled TestsBasic Metabolic Panel 05/26/23Echo Transthoracic Complete 06/09/23 [facility] Hospital course Narrative Note Date & Type Note Facility Hospital course Narrative No data available for this section [facility] Hospital Discharge instructions Note Date & Type Note Facility Hospital Discharge instructions No data available for this section [facility] Progress note Note Date & Type Note Facility Progress note No data available for this section [facility] Summary Purpose Family History No Family History Records Found No data available for this section No data available for this section No data available for this section No data available for this section No data available for this section No Family History Records Found Advance Directives No Advanced Directives Records FoundNo Advanced Directives Records Found Additional Source Comments (unrecognized sect ion and content) No Status Records FoundNo Status Records Found INFORMATION SOURCE (unrecogn ized section and content) DATE CREATED AUTHOR 07/14/2022 [facility] DATE CREATED AUTHOR AUTHOR'S ORGANIZ ATION 06/02/2023 [facility] Patient Care team informatio n (unrecognized section and content) Personnel Name: Jose Melchor MD Address: Address: [facility] [place] [address] Personnel Name: Jose Melchor MD Address: Address: [address] [place] [address] Personnel Name: Jose Melchor MD Address: Address: [facility] [place] Personnel Name: Jose Melchor MD Address: Address: [facility] [place] [address] Personnel Name: Jose Melchor MD Address: Address: [facility] [address] Personnel Name: Jose Melchor MD Address: Address: [address] [place], [place] [address]y [address] FOR RECORDS PERTAINING TO PATIENTS WHO ARE OR HAVE BEEN ENROLLED IN A CHEMICAL DEPENDENCY/SUBSTANCEABUSE PROGRAM, SOME INFORMATION MAY BE OMITTED. This clinical summary was aggregated from multiple sources. Caution should be exercised in using it in the provision of clinical care. This summary normalizes information from multiple sources, and as a consequence, information in this document may materially change the coding, format and clinical context of patient data. In addition, data may be omitted in some cases. CLINICAL DECISIONS SHOULD BE BASED ON THE PRIMARY CLINICAL RECORDS. [facility]. provides no warranty or guarantee of the accuracy or completeness of information in this document.
[2023-06-04 12:58] LABS: Glucometer 141 mg/dL (74-106)
--- NOTE | 2023-06-04 13:02 | XR_ITS ---
The [address] [address] Patient Name: ALICJA REYES MRN: [id number] date: 1955 Sex: M Assigned Patient Location: ER Current Patient Location: ED.MAIN Accession/Order Number: [id number] Exam Date: 06/04/2023 13:58 Report Date: 06/04/2023 15:00 At the request of: FRNACISCO COTA Procedure: XR chest 1V CHEST X-RAY, 1 VIEW HISTORY: Chest pain. COMPARISON: 06/04/2023. FINDINGS: The heart, cj, and mediastinum are unremarkable. The lungs are grossly clear. There are no pleural effusions. There is no pneumothorax. XR/XR chest 1V IMPRESSION: No evidence of acute cardiopulmonary disease. Electronically authenticated by: LEE ANN WONG Date: 06/04/2023 15:00
--- NOTE | 2023-06-04 13:02 | ECG_ITS ---
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
--- NOTE | 2023-06-04 13:19 | CT_ITS ---
The [address] [address] Patient Name: ALICJA REYES MRN: [id number] date: 1955 Sex: M Assigned Patient Location: ER Current Patient Location: ER Accession/Order Number: [id number] Exam Date: 06/04/2023 14:00 Report Date: 06/04/2023 15:18 At the request of: FRANCISCO COTA Procedure: CT abdomen pelvis wo con CT ABDOMEN AND PELVIS WITHOUT CONTRAST: 06/04/2023 2:00 PM EST Clinical Data: lower abd pain Comparison: No previous Unenhanced helically acquired data per protocol. The lack of IV contrast material hampers evaluation of the viscera, for adenopathy, and of the vasculature. The lack of oral contrast medium to some extent hampers evaluation of the bowel. All CT scans at this facility use dose modulation, iterative reconstruction, and/or weight based dosing when appropriate to reduce radiation dose to as low as reasonably achievable. FINDINGS: LOWER THORAX: Hypoventilatory changes LIVER: No acute findings. SPLEEN: No acute findings. GB/BILIARY: No acute findings at CT. PANCREAS: No acute findings. ADRENALS: No acute findings. KIDNEYS/URETERS: Kidneys are symmetric in size and density on this unenhanced study. Punctate right renal calculus. Modest bilateral hydronephrosis and hydroureter through the UVJs. VESSELS: No AAA ABDOMINAL NODES: No obvious adenopathy. PELVIC NODES: No obvious adenopathy. BLADDER: There is a catheter in the urinary bladder. Urinary bladder contains only a small of fluid and air. Even considering its nondistended state the mucosa/margin of the bladder is quite thickened diffusely. REPRODUCTIVE: Prostate and seminal vesicles are unremarkable in appearance at CT PERITONEUM: No free air. No free fluid. EXTRAPERITONEUM: No acute findings. BOWEL: No GI obstruction. Several colonic diverticula. The colon and small bowel are not obviously thickened. The stomach contains a mild amount of fluid and air. Even considering its nondistended state there is apparent long segment concentric thickening of the gastric body. BODY WALL: No acute findings. BONES: Multilevel postsurgical changes lumbosacral. No acute osseous finding OTHER: No acute findings. CT/CT abdomen pelvis wo con IMPRESSION: 1. Modest bilateral hydronephrosis and hydroureter through the UVJ. Urinary bladder as described. Query significant inflammation/infection. Masses are not excluded. Clinical correlation is needed. 2. Even considering a nondistended state there is apparent at least moderate long segment thickening of the gastric body. Clinical correlation is needed. Follow-up upper GI with air or direct visual inspection. 3. No GI obstruction. Colonic diverticula.. No distinct evidence of diverticulitis. Electronically authenticated by: TRINO MCFARLAND Date: 06/04/2023 15:18
[2023-06-04 13:25] LABS: Basophils Absolute Auto 0.1 10^3/uL (0.0-0.1); Basophils Percent Auto 0.8 % (0.2-2.0); Eosinophils Absolute Auto 0.2 10^3/uL (0.0-0.7); Eosinophils Percent Auto 2.1 % (0.9-7.0); Hematocrit 38.6 % (42.0-54.0); Hemoglobin 12.8 g/dL (14.0-18.0); Immature Granulocytes Abs Auto 0.03 10^3/uL (0.00-0.03); Immature Granulocytes Pct Auto 0.3 % (0.0-0.5); Lymphocytes Absolute Auto 1.8 10^3/uL (1.2-3.8); Mean Corpuscular HGB Conc 33.2 g/dL (29.9-35.2); Mean Corpuscular Hemoglobin 31.8 pg (25.9-34.0); Mean Corpuscular Volume 95.8 fL (80.0-94.0); Mean Platelet Volume 9.8 fL (9.5-13.5); Monocytes Absolute Auto 0.7 10^3/uL (0.3-0.8); Monocytes Percent Auto 7.9 % (1.7-12.0); Neutrophils Absolute Auto 6.5 10^3/uL (1.4-6.5); Neutrophils Percent Auto 69.9 % (43.0-75.0); Platelet Count 299 10^3/uL (150-450); Red Blood Count 4.03 10^6/uL (4.70-6.10); Red Cell Distribution Width 12.4 % (11.0-15.0); White Blood Count 9.3 10^3/uL (4.0-11.0)
[2023-06-04 13:42] LABS: INR 1.12; Prothrombin Time 11.8 sec (9.0-11.6)
[2023-06-04 13:44] LABS: Lactate/Lactic Acid 1.7 mmol/L (0.4-2.0)
[2023-06-04 13:50] LABS: Alanine Aminotransferase 36 U/L (16-63); Albumin Globulin Ratio 0.8; Albumin Level 3.5 g/dL (3.4-5.0); Alkaline Phosphatase 102 U/L (46-116); Anion Gap 16.9; Aspartate Amino Transferase 26 U/L (15-37); BUN Creatinine Ratio 15.1; Bilirubin Total 0.6 mg/dL (0.2-1.0); Calcium 7.8 mg/dL (8.5-10.1); Chloride 97 mmol/L (98-107); Estimated GFR (African America 53 (>=60); Estimated GFR (Non-African Ame 43 (>=60); Globulin 4.2 g/dL; Glucose 151 mg/dL (74-106); Sodium 138 mmol/L (136-145); Total Protein 7.7 g/dL (6.4-8.2); Troponin I High Sensitivity 13.4 pg/mL (4.0-76.1)
[2023-06-04 13:57] LABS: Potassium 2.9 mmol/L (3.5-5.1)
[2023-06-04 14:14] LABS: Bilirubin Urine NEGATIVE (NEGATIVE); Blood Urine MODERATE (NEGATIVE); Clarity Urine CLEAR (CLEAR); Color Urine LT. YELLOW (YELLOW); Glucose Urine UA NEGATIVE (NEGATIVE); Ketones Urine NEGATIVE (NEGATIVE); Leukocyte Esterase Urine MODERATE (NEGATIVE); Nitrite Urine NEGATIVE (NEGATIVE); Protein Urine 100 mg/dL (NEG/TRACE); Specific Gravity Urine 1.015 (1.005-1.025); Urobilinogen Urine 0.2 EU/dL (0.2-1.0)
[2023-06-04 14:16] LABS: Urine Microscopic Indicated YES
[2023-06-04 14:21] LABS: Bacteria Urine TRACE #/HPF (NONE SEEN); Crystals Seen? None Seen #/HPF (None Seen); Mucus Urine NONE SEEN (NONE SEEN); Squamous Epithelial Cell Urine FEW #/LPF (NONE/RARE); WBC Urine 20-50 #/HPF (NONE SEEN)
[2023-06-04 14:22] LABS: Cast Seen? NONE SEEN #/LPF (NONE SEEN); Urine Culture Indicated YES
[2023-06-04] MEDS: 0.9 % SODIUM CHLORIDE 1,000 ML 1000 ML IV (15:40)
[2023-06-04] MEDS: CIPROFLOXACIN IN 5 % DEXTROSE 400 MG/200 ML PIGGYBACK 200 MG IV (16:47)
--- NOTE | 2023-06-05 08:00 | ED_ITS ---
HPI - Dizziness General Chief Complaint: Dizziness Stated Complaint: DIZZY, NAUSEA, SHAKING Time Seen by Provider: 06/04/23 13:02 Source: patient and family Mode of arrival: Wheelchair Limitations: no limitations History of Present Illness HPI Narrative: The patient has been dealing with UTI at least for couple weeks apparently he has an antibiotic change multiple time ,he is coming to us with sense of chills and dizziness when standing up, He is taking Keflex right now for his UTI, the patient had some nausea no vomiting. There was lower abdominal discomfort as well and no chest pain no cough no difficulty breathing Related Data Home Medications Medication Instructions Recorded Confirmed atorvastatin 20 mg tablet 20 mg PO DAILY 05/23/23 05/23/23 glipizide 5 mg tablet 5 mg PO DAILY 05/23/23 05/23/23 lisinopril 20 1 tab PO DAILY 05/23/23 05/23/23 mg-hydrochlorothiazide 12.5 mg tablet metformin 500 mg tablet 500 mg PO BID 05/23/23 05/23/23 metoprolol tartrate 25 mg tablet 25 mg PO 05/23/23 omeprazole 40 mg capsule,delayed 40 mg PO DAILY 05/23/23 05/23/23 release Previous Rx's Medication Instructions Recorded ciprofloxacin HCl 500 mg tablet 500 mg PO Q12H #14 tabs 06/04/23 promethazine 25 mg tablet 12.5 mg (1/2 x 25 mg) PO TID PRN 06/04/23 nausea and vomiting #10 tabs tamsulosin 0.4 mg capsule (Flomax) 0.4 mg PO DAILY #20 caps 06/04/23 potassium chloride 20 mEq oral 20 meq PO BID 2 days #4 ea 06/05/23 packet Allergies Allergy/AdvReac Type Severity Reaction Status Date / Time No Known Drug Allergies Allergy Verified 05/23/23 09:02 Review of Systems ROS Status of ROS 10 or more systems reviewed and unremark able except as noted in history and below PFSH PFS Social History Smoking status: Never smoker Exam Narrative Exam Narrative: Nurses notes and vital signs reviewed and patient is not hypoxic. General: Well-appearing and in no apparent distress. Skin: Warm, dry, no pallor noted. No rash. Head: Normocephalic, atraumatic. Neck: Supple, non-tender. Eye: Pupils are equal, round and EOMI. No scleral icterus. Ears, Nose, Mouth, and Throat: TM are clear, no nasal mucosal hypertrophy. Oral mucosa is moist, no posterior oropharynx erythema, uvula is mid-line Cardiovascular: Regular Rate and Rhythm without murmur, gallop or rub. Respiratory: No accessory muscle use or respiratory distress. Lungs are clear to auscultation, no wheezing, rales or rhonchi Chest Wall: no tenderness Back: No midline thoracic or lumbar vertebral tenderness. No CVA tenderness Musculoskeletal: normal ROM, no calf or popliteal tenderness, no lower extremity edema/swelling GI: Abdomen distended abdomen mostly in the lower half with discomfort but no tenderness on examination Neurological: A&O x4. No cranial nerve dysfunction observed. No truncal ataxia. Moves all extremities. Sensation intact. Psychiatric: Cooperative and interactive. Normal mood and affect. Constitutional Vital Signs, click to edit/add: Last Vital Signs Temp 98.2 F 06/04/23 12:40 Pulse 95 H 06/04/23 16:20 Resp 17 06/04/23 16:20 BP 150/87 H 06/04/23 16:15 Pulse Ox 97 06/04/23 16:15 O2 Del Method Room Air 06/04/23 12:40 Course Vital Signs Vital signs: Vital Signs Temperature 98.2 F 06/04/23 12:40 Pulse Rate 100 H 06/04/23 12:40 Respiratory Rate 18 06/04/23 12:40 Blood Pressure 124/86 06/04/23 12:40 Pulse Oximetry 98 06/04/23 12:40 Oxygen Delivery Method Room Air 06/04/23 12:40 Temperature 98.2 F 06/04/23 12:40 Pulse Rate 95 H 06/04/23 16:20 Respiratory Rate 17 06/04/23 16:20 Blood Pressure 150/87 H 06/04/23 16:15 Pulse Oximetry 97 06/04/23 16:15 Oxygen Delivery Method Room Air 06/04/23 12:40 MDM - Dizziness MDM Narrative Medical decision making narrative: The patient EKG showing sinus rhythm with a heart rate of [address] elevation or depression The patient CBC showed no leukocytosis lactic acid was within normal The patient kidney function was mildly elevated and his potassium was 2.9 The patient urinalysis positive for UTI The patient was found to have more than 1600 cc of urine retained , he had a Rosa catheter placed after which it was able to drain almost 2 L The patient after that was feeling much better he was initially given the option to be admitted but he preferred to be following up with outpatient and since the patient have no leukocytosis and no systemic symptoms of infection and the fact that the patient have hydronephrosis mostly secondary to the urine retention that will get better after the Rosa catheter was placed The patient was referred to urology he will call his urologist to make an appointment at [facility] he was discharged with a Rosa catheter care as well in addition to Flomax ciprofloxacin and after sending urine culture as well The patient also was instructed about hydration he also had a potassium prescription called for his pharmacy The patient is to follow up with primary care physician in next 2-3 days or to return to the emergency department should any of the signs or symptoms worsen or new symptoms develop. The patient agrees with the following Diagnosis and Treatment plan and the patient will be discharged home. Lab Data Labs: Lab Results 06/04/23 06/04/23 06/04/23 Range/Units 12:47 13:00 13:50 WBC 9.3 (4.0-11.0) 10^3/uL RBC 4.03 L (4.70-6.10) 10^6/uL Hgb 12.8 L (14.0-18.0) g/dL Hct 38.6 L (42.0-54.0) % MCV 95.8 H (80.0-94.0) fL MCH 31.8 (25.9-34.0) pg MCHC 33.2 (29.9-35.2) g/dL RDW 12.4 (11.0-15.0) % Plt Count 299 (150-450) 10^3/uL MPV 9.8 (9.5-13.5) fL Neut % (Auto) 69.9 (43.0-75.0) % Lymph % (Auto) 19.0 L (20.5-60.0) % [place] % (Auto) 7.9 (1.7-12.0) % Eos % (Auto) 2.1 (0.9-7.0) % Baso % (Auto) 0.8 (0.2-2.0) % Neut # (Auto) 6.5 (1.4-6.5) 10^3/uL Lymph # (Auto) 1.8 (1.2-3.8) 10^3/uL [place] # (Auto) 0.7 (0.3-0.8) 10^3/uL Eos # (Auto) 0.2 (0.0-0.7) 10^3/uL Baso # (Auto) 0.1 (0.0-0.1) 10^3/uL Abs Immat Gran (auto) 0.03 (0.00-0.03) 10^3/uL Imm/Tot Granulo (auto) 0.3 (0.0-0.5) % PT 11.8 H (9.0-11.6) sec INR 1.12 Sodium 138 (136-145) mmol/L Potassium 2.9 L* (3.5-5.1) mmol/L Chloride 97 L (98-107) mmol/L Carbon Dioxide 27.0 (21.0-32.0) mmol/L Anion Gap 16.9 BUN 24.0 H (7.0-18.0) mg/dL Creatinine 1.59 H (0.70-1.30) mg/dL Est GFR ( Amer) 53 L (>=60) Est GFR (Non-Af Amer) 43 L (>=60) BUN/Creatinine Ratio 15.1 Glucose 151 H (74-106) mg/dL Lactate 1.7 (0.4-2.0) mmol/L Calcium 7.8 L (8.5-10.1) mg/dL Total Bilirubin 0.6 (0.2-1.0) mg/dL AST 26 (15-37) U/L ALT 36 (16-63) U/L Alkaline Phosphatase 102 (46-116) U/L Troponin I High Sens 13.4 (4.0-76.1) pg/mL Total Protein 7.7 (6.4-8.2) g/dL Albumin 3.5 (3.4-5.0) g/dL Globulin 4.2 g/dL Albumin/Globulin Ratio 0.8 Urine Color Lt. yellow (YELLOW) Urine Clarity Clear (CLEAR) Urine pH 6.0 (5.0-9.0) Ur Specific Deary 1.015 (1.005-1.025) Urine Protein 100 A (NEG/TRACE) mg/dL Urine Glucose (UA) Negative (NEGATIVE) mg/dL Urine Ketones Negative (NEGATIVE) mg/dL Urine Occult Blood Moderate A (NEGATIVE) Urine Nitrite Negative (NEGATIVE) Urine Bilirubin Negative (NEGATIVE) Urine Urobilinogen 0.2 (0.2-1.0) EU/dL Ur Leukocyte Esterase Moderate A (NEGATIVE) Urine RBC 10-20 A (0-2) #/HPF Urine WBC 20-50 A (NONE SEEN) #/HPF Ur Squamous Epith Cells Few A (NONE/RARE) #/LPF Urine Crystals None seen (None Seen) #/HPF Urine Bacteria Trace A (NONE SEEN) #/HPF Urine Casts None seen (NONE SEEN) #/LPF Urine Mucus None seen (NONE SEEN) Ur Culture Indicated? Yes POC Glucose 141 H (74-106) mg/dL Discharge Plan Discharge Chief Complaint: Dizziness Clinical Impression: Acute UTI, Acute retention of urine Hydronephrosis Qualifiers: Hydronephrosis type: other Qualified Code(s): N13.39 - Other hydronephrosis Patient Disposition: Home, Self-Care Time of Disposition Decision: 16:15 Prescriptions / Home Meds: New promethazine 25 mg tablet 12.5 mg PO TID PRN (Reason: nausea and vomiting) Qty: 10 0RF Rx Instructions: 3 doses during day; last dose no later than 4 hr before bedtime ciprofloxacin HCl 500 mg tablet 500 mg PO Q12H Qty: 14 0RF tamsulosin [Flomax] 0.4 mg capsule 0.4 mg PO DAILY Qty: 20 0RF potassium chloride 20 mEq packet 20 meq PO BID 2 Days Qty: 4 0RF Discontinued cephalexin 250 mg capsule 250 mg PO Q6H ondansetron 4 mg tablet,disintegrating 4 mg PO Q6H PRN (Reason: nausea and vomiting) Qty: 20 0RF No Action glipizide 5 mg tablet 5 mg PO DAILY lisinopril-hydrochlorothiazide 20-12.5 mg tablet 1 tab PO DAILY metformin 500 mg tablet 500 mg PO BID metoprolol tartrate 25 mg tablet 25 mg PO omeprazole 40 mg capsule,delayed release(DR/EC) 40 mg PO DAILY atorvastatin 20 mg tablet 20 mg PO DAILY Instructions: Urinary Retention in Men (ED), Rosa Catheter Placement and Care (ED), Hydronephrosis (ED) Stand Alone Forms: Portal Instructions Referrals: Manolo Lares MD [Physician] - 1 week NANCY GRACE [Primary Care Provider] - 1 week Discharge Date/Time: 06/04/23 17:28
== END 2023-06-04 17:28 | disposition home or self-care (01) ==
PROVIDERS: Emergency Provider Emergency Medicine; PCP Family Medicine
DX: N39.0 Urinary tract infection, site not specified (principal); R42 Dizziness and giddiness; R33.9 Retention of urine, unspecified; R11.2 Nausea with vomiting, unspecified; Z79.84 Long term (current) use of oral hypoglycemic drugs; Z79.899 Other long term (current) drug therapy; N13.39 Other hydronephrosis; R10.30 Lower abdominal pain, unspecified
CPT/HCPCS: 36415; 51702; 71045; 74176; 80053; 81001; 83605; 84484; 85025; 85610; 87086; 93005; 96374; 99285

== ENCOUNTER 2023-07-14 07:56 | Outpatient (OUT) | payer MEDICARE, OTHER, SELFPAY ==
--- OUTSIDE RECORDS SUMMARY | 2023-07-14 08:00 | XMS_ITS | CCD ---
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 Attending Unavailable Jose Grace E. Attending Unavailable Jose Grace EMalgorzata Attending Unavailable Ruiz Jose E. Admitting Unavailable Ruiz Jose E. Attending Unavailable Ruiz Jose E. Admitting Unavailable Ruiz Jose E. Attending Unavailable Ruiz Jose E. Admitting Unavailable Ruiz Jose E. Attending Unavailable Ruiz Jose E. Admitting Unavailable Jose Grace E. Attending Unavailable Ruiz Jose E. Admitting Unavailable Ruiz, Jose E. Attending Unavailable Ruiz Jose E. Attending Unavailable YOEL OBREGON Attending Unavailable Manolo ALLEN Attending Unavailable EseChristy bear Referring Unavailable Kristel Tolentino Attending Unavailable YOEL OBREGON Attending Unavailable Jose Grace Attending Unavailable EseChristy Attending Unavailable Ruiz Jose EMalgorzata Attending Unavailable Ruiz Jose E. Attending Unavailable Ruiz Jose E. Attending Unavailable Ese, Christy L Admitting Unavailable Ese, Christy L Attending Unavailable Ese, Christy L Admitting Unavailable Ese, Christy L Attending Unavailable Ese, Christy L Admitting Unavailable Ese, Christy L Attending Unavailable Troy Coulter Attending Unavaila ble Jose Grace Referring Unavailable ALAHMAD, Alaa Admitting Unavailable ALAHMAD, Alaa Attending Unavailable Ruiz Jose E. Admitting Unavailable Ross, Jose E. Attending Unavailable Jose Grace Admitting Unavailable Jose Grace Attending Unavailable Allergies Allergy Classification Reported Allergen(s) Allergy Type Date of Onset Reaction(s) Facility (2 sources) celecoxib; Translations: [CeleBREX] Drug Allergy [facility] (1 source) Cetirizine Drug Allergy [facility] (12 sources) celecoxib; Translations: [celecoxib] Drug Allergy Unknown (qualifier value) [facility] Medications Current Medications Medication Drug Class(es) Dates Sig (Normalized) Sig (Original) aspirin 81 mg delayed release oral tablet (5 sources) Platelet Aggregation Inhibitor, Nonsteroidal Anti-inflammatory Drug Start: 06-13-2023 take 1 tablet by mouth once daily aspirin 81 mg Oral EC Tab 81 mg = 1 tab(s), Oral, Daily, # 90 tab(s), Refills(s) 0, Pharmacy: [facility], 174.5, cm, 06/13/23 8:07:00 EST, Height/Length Dosing, 102.3, kg, 06/13/23 8:07:00 EST, Weight Dosing Start Date: 06/13/23 Status: Ordered atorvastatin 40 mg oral tablet (12 sources) HMG-CoA Reductase Inhibitor Start: 06-13-2023 take 1 tablet by mouth once daily atorvastatin 40 mg Tab 40 mg = 1 tab(s), Oral, Daily, # 90 tab(s), Refills(s) 1, Pharmacy: [facility], 174.5, cm, 06/13/23 8:07:00 EST, Height/Length Dosing, 102.3, kg, 06/13/23 8:07:00 EST, Weight Dosing Start Date: 06/13/23 Status: Ordered Start: 02-14-2023 take 1 tablet by marly th at bedtime atorvastatin 20 mg Tab 20 mg = 1 tab(s), Oral, Bedtime, # 90 tab(s), Refills(s) 1, Pharmacy: [facility], 174.5, cm, 02/14/23 7:27:00 EDT, Height/Length [...] day(s), # 28 cap(s), Refills(s) 0, [id number] 174.5, cm, 05/26/23 9:14:00 EST, Height/Length Dosing, 109.1, kg, 05/26/23 9:14:00 EST, Weight Dosing Start Date: 05/26/23 Stop Date: 06/02/23 Status: Ordered Start: 05-16-2023 End: 05-23-2023 take 1 capsule by mouth four times daily Keflex 250 mg Cap 250 mg = 1 cap(s), Oral, QID, X 7 day(s), # 28 cap(s), Refills(s) 0, Pharmacy: [facility], 174.5, cm, 05/16/23 7:26:00 EST, Height/Length Dosing, 113.4, kg, 05/16/23 7:26:00 EST, Weight Dosing Start Date: 05/16/23 Stop Date: 05/23/23 Status: Ordered ciprofloxacin 500 mg oral tablet (3 sources) Quinolone Antimicrobial Start: 06-28-2023 Cipro 500 mg Tab See Instructions, Take 1 tab day prior to procedure and 1 tab day of procdure - afterwards, # 2 tab(s), Refills(s) 0, [id number] 175.4, cm, 06/28/23 7:53:00 EST, Height/Length Dosing, 106.8, kg, 06/28/23 7:53:00 EST, Weight Dosing Start Date: 06/28/23 Status: Ordered Start: 04-04-2023 End: 2023 take 1 tablet by mouth every twelve hours Cipro 500 mg Tab 500 mg = 1 tab(s), Oral, q12hr, X 10 day(s), # 20 tab(s), Refills(s) 0 Start Date: 04/04/23 Stop Date: 04/14/23 Status: Ordered Freestyle Alejandra 2 Flash Glucose Monitoring 14 Day System ([place]) (6 sources) Start: 02-14-2023 Freestyle Libr e 2 Flash Glucose Monitoring 14 Day System ([place]) Freestyle Alejandra 2 Flash Glucose Monitoring 14 Day System ([place]), See Instructions, 1 EA, 0, Freestyle Alejandra Flash Glucose Monitoring 14 Day System ([place]), [facility]/pharmacy #[id number], Supply, 174.5, cm, 02/14/23 7:27:00 EDT, Height/Length Dosing, 115.8, kg, 02/14/23 7:27:00 EDT, Weight Dosing Start Date: 02/14/23 Status: Ordered Freestyle Alejandra Flash 2 Glucose Monitoring 14 Day System (Sensor) (6 sources) Start: 02-14-2023 Freestyle Libr e Flash 2 Glucose Monitoring 14 Day System (Sensor) Freestyle Alejandra Flash 2 Glucose Monitoring 14 Day System (Sensor), See Instructions, 6 EA, 0, Freestyle Alejandra Flash Glucose Monitoring 14 Day System (Sensor). Replace sensor every 14 days., [facility]/pharmacy #[id number], Supply, 174.5, cm, 02/14/23 7:27:00 EDT, Height/Length Dosing, 115.8, kg, 02/14/23 7:27:00 EDT, Weight Dosing Start Date: 02/14/23 Status: Ordered glipiZIDE 5 mg oral tablet (12 sources) Sulfonylurea Start: 05-26-2023 take 2 tablets by mouth twice daily glipiZIDE 5 mg Tab 10 mg = 2 tab(s), Oral, BID, # 360 tab(s), Refills(s) 1, Pharmacy: [facility], 174.5, cm, 05/26/23 9:14:00 EST, Height/Length Dosing, 109.1, kg, 05/26/23 9:14:00 EST, Weight Dosing Start Date: 05/26/23 Status: Ordered Start: 05-16-2023 take 1 tablet by marly th twice daily glipiZIDE 5 mg Tab 5 mg = 1 tab(s), Oral, BID, # 90 tab(s), Refills(s) 1, Pharmacy: [facility], 174.5, cm, 05/16/23 7:26:00 EST, Height/Length Dosing, 113.4, kg, 05/16/23 7:26:00 EST, Weight Dosing Start Date: 05/16/23 Status: Ordered Start: 02-14-2023 take 1 tablet by marly th once daily glipiZIDE 5 mg Tab 5 mg = 1 tab(s), Oral, Daily, # 90 tab(s), Refills(s) 1, Pharmacy: [facility], 174.5, cm, 02/14/23 7:27:00 EDT, Height/Length [...] mg / lisinopril 20 mg oral tablet (12 sources) Thiazide Diuretic, Angiotensin Converting Enzyme Inhibitor Start: 09-16-2022 hydrochlorothiazide-lisinopr il 12.5 mg-20 mg Tab 1 tab(s), Oral, Daily, 90 tab(s), Refill(s) 3, [facility] Start Date: 09/16/22 Status: Ordered magnesium oxide 400 mg oral tablet (4 sources) Start: 06-15-2023 take 1 tablet by mouth once daily magnesium oxide 400 mg Tab 400 mg = 1 tab(s), Oral, Daily, # 60 tab(s), Refills(s) 0, Pharmacy: [facility]/pharmacy #[id number], 175, cm, 06/14/23 10:52:00 EST, Height/Length Dosing, 102.3, kg, 06/14/23 10:52:00 EST, Weight Dosing Start Date: 06/15/23 Status: Ordered 24 hr metFORMIN hydrochloride 500 mg extended release oral tablet (12 sources) Biguanide Start: 06-13-2023 take 2 tablets by mouth twice daily Glucophage XR 500 mg Tab-ER 1,000 mg = 2 tab(s), Oral, BID, # 360 tab(s), Refills(s) 1, Pharmacy: [facility], 174.5, cm, 06/13/23 8:07:00 EST, Height/Length Dosing, 102.3, kg, 06/13/23 8:07:00 EST, Weight Dosing Start Date: 06/13/23 Status: Ordered Start: 11-15-2022 End: 11-10-2023 take 2 tablets by mouth once daily metformin 500 mg Tab 1,000 mg = 2 tab(s), Oral, Daily, X 90 day(s), # 180 tab(s), Refills(s) 3, Pharmacy: [facility] Start Date: 11/15/22 Stop Date: 11/10/23 Status: Ordered [facility] Prescription (16 sources) Start: 05-26-2023 Start: 05-26-2023 [facility] Presc ription [facility] Prescription, See Instructions, 1 kit(s), 0, One Touch Ultra 2 glucose meter kit Use to tests sugars daily E11.9, [facility], Supply, 174.5, cm, 05/26/23 9:14:00 EST, Height/Length Dosing, 109.1, kg, 05/26/23 9:14:00 EST, Weight Dosing Start Date: 05/26/23 Status: Ordered Multiple Vitamins Tab (1 source) Start: 11-15-2012 take 1 tablet by mouth once daily Multiple Vitamins Tab 1 tab(s), Oral, Daily, Refill(s) 0, Prophylaxis Start Date: 11/15/12 Status: Ordered omeprazole 40 mg delayed release oral capsule (12 sources) Proton Pump Inhibitor Start: 01-20-2023 take 1 capsule by mouth once daily omeprazole 40 mg Cap-DR 40 mg = 1 cap(s), Oral, Daily, # 90 cap(s), Refills(s) 0, Pharmacy: [facility], 174.5, cm, 06/21/23 13:33:00 EST, Height/Length Dosing, 102.3, kg, 06/21/23 13:33:00 EST, Weight Dosing Start Date: 06/23/23 Status: Ordered tamsulosin hydrochloride 0.4 mg oral capsule (5 sources) alpha-Adrenergic Pooja Start: 06-14-2023 take 1 capsule by mouth once daily in the evening tamsulosin 0.4 mg Cap 0.4 mg = 1 cap(s), Oral, qPM, Refills(s) 0 Start Date: 06/14/23 Status: Ordered Start: 01-13-2023 take 1 capsule by [facility] at bedtime tamsulosin 0.4 mg Cap 0.4 [...] Dates Sig (Normalized) Sig (Original) potassium chloride 10 meq extended release oral capsule (6 sources) Start: 06-15-2023 take 1 capsule by mouth once daily potassium chloride 10 mEq Cap-ER 10 mEq = 1 cap(s), Oral, Daily, # 30 cap(s), Refills(s) 0, Pharmacy: [facility]/pharmacy #[id number], 175, cm, 06/14/23 10:52:00 EST, Height/Length Dosing, 102.3, kg, 06/14/23 10:52:00 EST, Weight Dosing Start Date: 06/15/23 Status: Ordered Start: 05-26-2023 End: 06-02-2023 take 1 tablet by mouth twice daily Potassium Chloride (Eqv-K-Tab) 20 mEq oral tablet, extended release 20 mEq = 1 tab(s), Oral, BID, X 7 day(s), # 14 tab(s), Refills(s) 0, Pharmacy: [facility]/pharmacy #[id number], 174.5, cm, 05/26/23 9:14:00 EST, Height/Length Dosing, 109.1, kg, 05/26/23 9:14:00 EST, Weight Dosing Start Date: 05/26/23 Stop Date: 06/02/23 Status: Ordered Problems Problem Classification Problem Date Documented Date Episodic/Chronic Abdominal pain (11 sources) Right flank pain 04-04-2023 Episodic Alcohol-related disorders (12 sources) Alcohol abuse; Translations: [Nondependent alcohol abuse in remission] 01-20-2023 Chronic Calculus of urinary tract (5 sources) Kidney stone; Translations: [Calculus of kidney] Onset: 06-21-2023 Episodic Cardiac dysrhythmias (4 sources) Tachycardia 01-20-2023 Episodic Conditions associated with dizziness or vertigo (5 sources) Dizziness 06-13-2023 Episodic Deficiency and other anemia (1 source) Anemia, unspecified; Translations: [D64.9] Onset: 06-14-2023 Episodic Diabetes mellitus with complications (15 sources) Type 2 diabetes mellitus with unspecified complications; Translations: [Renal disorder due to type 2 diabetes mellitus] Onset: 07-13-2022 Chronic Diabetes mellitus without complication (13 sources) Type 2 diabetes mellitus without complication; Translations: [Type 2 diabetes mellitus without complications] 01-20-2023 Chronic Comment on above: linked DM with HLD p er OP CDI policy. Disorders of lipid metabolism (13 sources) Pure hypercholesterolemia, unspecified; Translations: [Hypercholesterolemia] Onset: 07-14-2022 01-13-2023 Chronic Esophageal disorders (12 sources) Gastroesophageal reflux disease without esophagitis; Translations: [Gastro-esophageal reflux disease without esophagitis] 01-20-2023 Chronic Essential hypertension (13 sources) Essential (primary) hypertension; Translations: [Hypertensive disorder] Onset: 07-14-2022 11-15-2012 Chronic Fluid and electrolyte disorders (8 sources) Hypokalemia 05-26-2023 Episodic Genitourinary symptoms and ill-defined conditions (20 sources) Blood in urine; Translations: [Increased frequency of urination] Onset: 06-21-2023 04-04-2023 Episodic Hyperplasia of prostate (5 sources) Benign prostatic hypertrophy with outflow obstruction; Translations: [Benign prostatic hyperplasia with lower urinary tract symptoms] Onset: 06-21-2023 Chronic Malaise and fatigue (9 sources) Fatigue 05-16-2023 Episodic Mood disorders (5 sources) Recurrent major depressive episodes, moderate 06-13-2023 Chronic Comment on above: added per 06/10/2023 query response. Other aftercare (1 source) Post-discharge follow-up 06-28-2023 Episodic Other lower respiratory disease (5 sources) Dyspnea on exertion 06-13-2023 Episodic Other male genital disorders (1 source) Disorder of prostate, unspecified; Translations: [DISORDER OF PROSTATE UNSPECIFIED] Onset: 07-14-2022 Episodic Other male genital disorders (11 sources) Disorder of prostate 01-13-2023 Episodic Other nutritional; endocrine; and metabolic disorders (1 source) Obese class II; Translations: [Body mass index (BMI) 37.0-37.9, adult] Onset: 05-16-2023 Chronic Other nutritional; endocrine; and metabolic disorders (1 source) Obesity; Translations: [Other obesity due to excess calories] Onset: 05-16-2023 Chronic Other nutritional; endocrine; and metabolic disorders (8 sources) Morbid obesity 05-16-2023 Chronic Comment on above: added per 05/13/2023 query response. Other screening for suspected conditions (not mental disorders or infectious disease) (6 sources) Raised prostate specific antigen; Translations: [Elevated prostate specific antigen [PSA]] Onset: 06-21-2023 Episodic Residual codes; unclassified (9 sources) Edema 05-16-2023 Episodic Screening and history of mental health and substance abuse codes (1 source) H/O: Disorder; Translations: [Personal history of nicotine dependence] Onset: 05-16-2023 Episodic Unclassified (11 sources) Patient encounter status 04-04-2023 Urinary tract infections (5 sources) Urinary tract infectious disease; Translations: [Urinary tract infection, site not specified] Onset: 06-21-2023 Episodic Results Test Name Value Interpretation Reference [facility] 07-12-19 [facility] Case Information Case Priority: None Programs: Transition Care Management Complex Case Management Chronic Care/Condition Management Behavioral Health CCM Referral Source: System Identified Referral Reason: System identified Case Type: Transition Care Management Risk Score: 1.32 Case Status: Enrolled (June 16, 2023) Date Assigned: June 16, 2023 Assigned By: Alicja Castellon Date Enrolled: June 16, 2023 Assigned Primary Personnel: Alicja Castellon Assigned Secondary Personnel: -- Case Physician: Jose Grace MD Ongoing Alcohol abuse, in remission BPH with urinary obstruction Diabetic nephropathy associated with type 2 diabetes mellitus Dizziness Edema Elevated PSA Fatigue Gastroesophageal reflux disease without esophagitis [facility] discharge follow-up Hypercholesterolemia Hypokalemia Incomplete bladder emptying Kidney stone Major depressive disorder, recurrent, moderate Primary hypertension Prostate cancer screening Recurrent UTI Right flank pain SOB (shortness of breath) on exertion Type 2 diabetes mellitus with hypercholesterolemia Urinary retention Historical No qualifying data Procedure/Surgical History Arthroscopy, back surgery, Carpal tunnel release, hand and elbow surgery, Hand tendon repaired. Home Medications aspirin 81 mg Oral EC Tab, 81 mg= 1 tab(s), Oral, Daily atorvastatin 40 mg Tab, 40 mg= 1 tab(s), Oral, Daily, 1 refills Cipro 500 mg Tab, See Instructions glipiZIDE 5 mg Tab, 10 mg= 2 tab(s), Oral, BID, 1 refills, Still taking, not as prescribed: patient is taking one tablet twice daily Glucophage XR 500 mg Tab-ER, 1000 mg= 2 tab(s), Oral, BID, 1 refills hydrochlorothiazide-li sinopril 12.5 mg-20 mg Tab, 1 tab(s), Oral, Daily, 3 refills magnesium oxide 400 mg Tab, 400 mg= 1 tab(s), Oral, Daily Misc DME Prescription, See Instructions, 3 refills Misc DME Prescription, See Instructions, 3 refills Misc DME Prescription, See Instructions, 3 refills Misc DME Prescription, See Instructions omeprazole 40 mg Cap-DR, 40 mg= 1 cap(s), Oral, Daily potassium chloride 10 mEq Cap-ER, 10 mEq= 1 cap(s), Oral, Daily tamsulosin 0.4 mg Cap, 0.4 mg= 1 cap(s), Oral, qPM Allergies CeleBREX (Unknown) Social History Alcohol - Medium Risk, 11/15/2012 Beer, Daily, 3.00 drinks/episode maximum. Alcohol use interferes with work or home: No. Drinks more than intended: No. Others hurt by drinking: No. Ready to change: No. Household alcohol concerns: No., 11/15/2012 Substance Abuse - Denies Substance Abuse, 11/15/2012 Tobacco - Low Risk, 11/15/2012 Former smoker, quit more than 30 days ago Tobacco Use:. Smokeless tobacco user within last 30 days Smokeless Tobacco Use:. Cigarettes, Household tobacco concerns: No., 06/28/2023 Family History Primary malignant neoplasm of colon: Father. Screenings and Assessments 01/11/24 10:41:00 Result Name Value Comment Phone Call Monitoring Consent Agreed to continue call Phone Verification Patient Information Full name, street address and date of verified CM Program Enrollment Provides verbal consent for enrollment Goals and Interventions Care Plan Progress Note TCM#4- Patient states 'I think I am going backwards.' Reports return of nausea and dizziness approximately 5 days ago, also notes darker colored urine. Patient is self cathing twice daily. Patient reports starting an extra round of keflex he had on hand, 250 mg QID 4 days ago. Notes his urine has become air pollution analyst in color, however no improvement to nausea or dizziness. Patient does notes turning head quickly worsens dizziness. Encouraged patient to change position slowly and remain well hydrated. Patient is requesting rx for Zofran disintegrating tablets (proposal sent to PCP.) Patient notes he has not had much of an appetite, has been eating very light. Patient admits he has not been checking BS. Reminded patient importance of monitoring BS, with patient verbalizing understanding. Patient denies any any bowel issues. No change in sleep pattern. Patient has OV with PCP 07/14 at 1000. Patient denies any further questions or concerns. Communication Events Date: July 12, 2023 Method: Phone call Type: Outbound Duration (min): 7 Outcome: Case discussion Contact Type: disability coordinator Contact Name: Alicja Castellon Notes: TCM#4- spoke with pt for tcm, see ft summary note. Created By: Alicja Castellon Date: July 05, 2023 Method: Phone call Type: Outbound Duration (min): 5 Outcome: Case discussion Contact Type: disability coordinator Contact Name: Alicja Castellon Notes: TCM#3-mSpoke with patient for tcm, see ft summary note. Created By: Alicja Castellon Date: June 23, 2023 Method: Phone call Type: Outbound Duration (min): 2 Outcome: Case discussion Contact Type: disability coordinator Contact Name: Alicja Castellon Notes: TCM#2- Spoke with patient for tcm, see ft summary note (more content not included)... Normal [facility] 07-05-19 Population Health Case Information Case Priority: None Programs: Transition Care Management Complex Case Management Chronic Care/Condition Management Behavioral Health CCM Referral Source: System Identified Referral Reason: System identified Case Type: Transition Care Management Risk Score: 1.32 Case Status: Enrolled (June 16, 2023) Date Assigned: June 16, 2023 Assigned By: Alicja Castellon Date Enrolled: June 16, 2023 Assigned Primary Personnel: Alicja Castellon Assigned Secondary Personnel: -- Case Physician: Jose Grace MD Ongoing Alcohol abuse, in remission BPH with urinary obstruction Diabetic nephropathy associated with type 2 diabetes mellitus Dizziness Edema Elevated PSA Fatigue Gastroesophageal reflux disease without esophagitis [facility] discharge follow-up Hypercholesterolemia Hypokalemia Incomplete bladder emptying Kidney stone Major depressive disorder, recurrent, moderate Primary hypertension Prostate cancer screening Recurrent UTI Right flank pain SOB (shortness of breath) on exertion Type 2 diabetes mellitus with hypercholesterolemia Urinary retention Historical No qualifying data Procedure/Surgical History Arthroscopy, back surgery, Carpal tunnel release, hand and elbow surgery, Hand tendon repaired. Home Medications aspirin 81 mg Oral EC Tab, 81 mg= 1 tab(s), Oral, Daily atorvastatin 40 mg Tab, 40 mg= 1 tab(s), Oral, Daily, 1 refills Cipro 500 mg Tab, See Instructions glipiZIDE 5 mg Tab, 10 mg= 2 tab(s), Oral, BID, 1 refills, Still taking, not as prescribed: patient is taking one tablet twice daily Glucophage XR 500 mg Tab-ER, 1000 mg= 2 tab(s), Oral, BID, 1 refills hydrochlorothiazide-li sinopril 12.5 mg-20 mg Tab, 1 tab(s), Oral, Daily, 3 refills magnesium oxide 400 mg Tab, 400 mg= 1 tab(s), Oral, Daily Misc DME Prescription, See Instructions, 3 refills Misc DME Prescription, See Instructions, 3 refills Misc DME Prescription, See Instructions, 3 refills Misc DME Prescription, See Instructions omeprazole 40 mg Cap-DR, 40 mg= 1 cap(s), Oral, Daily potassium chloride 10 mEq Cap-ER, 10 mEq= 1 cap(s), Oral, Daily tamsulosin 0.4 mg Cap, 0.4 mg= 1 cap(s), Oral, qPM Allergies CeleBREX (Unknown) Social History Alcohol - Medium Risk, 11/15/2012 Beer, Daily, 3.00 drinks/episode maximum. Alcohol use interferes with work or home: No. Drinks more than intended: No. Others hurt by drinking: No. Ready to change: No. Household alcohol concerns: No., 11/15/2012 Substance Abuse - Denies Substance Abuse, 11/15/2012 Tobacco - Low Risk, 11/15/2012 Former smoker, quit more than 30 days ago Tobacco Use:. Smokeless tobacco user within last 30 days Smokeless Tobacco Use:. Cigarettes, Household tobacco concerns: No., 06/28/2023 Family History Primary malignant neoplasm of colon: Father. Screenings and Assessments 06/16/23 10:41:00 Result Name Value Comment Phone Call Monitoring Consent Agreed to continue call Phone Verification Patient Information Full name, street address and date of verified CM Program Enrollment Provides verbal consent for enrollment Goals and Interventions Care Plan Progress Note TCM#3- Patient states everything is going good. Patient denies any further episodes f dizziness. Patient states he is getting low on cath supplies, but not without. Supply orders sent 07/04 per previous note. Patient does have contact info for 180 supplies, states he will contact as needed. Patient denies any urinary system issues. No change in sleep pattern. Patient notes he is waiting for a few refills from [email or web address]. Patient denies any further questions or concerns at this time. Communication Events Date: July 05, 2023 Method: Phone call Type: Outbound Duration (min): 5 Outcome: Case discussion Contact Type: disability coordinator Contact Name: Alicja Castellon Notes: TCM#3-mSpoke with patient for tcm, see ft summary note. Created By: Alicja Castellon Date: June 23, 2023 Method: Phone call Type: Outbound Duration (min): 2 Outcome: Case discussion Contact Type: disability coordinator Contact Name: Alicja Castellon Notes: TCM#2- Spoke with patient for tcm, see ft summary note. Created By: Alicja Castellon Date: June 16, 2023 Method: Phone call Type: Outbound Duration (min): 8 Outcome: Case discussion Contact Type: disability coordinator Contact Name: Alicja Castellon Notes: TCM#1- spoke with patient for initial tcm, see ft summary note. Created By: Alicja Castellon [facility] - Clinical Noteon Retail - Clinical Note [id number] [facility] Ambulatory Visit Summaryon 0 06-28-2023 Ambulatory Visit Summary ALICJA REYES :1955 Visit Date:06/28/2023 Ambulatory Visit Instructions Your Diagnosis Hospital discharge follow-up Dizziness Hypokalemia Major depressive disorder, recurrent, moderate BMI 34.0-34.9,adult Class 1 obesity due to excess calories in adult Former smoker BPH with urinary obstruction Other obstructive and reflux uropathy Your Care Team Attending Physician - Jose Grace MD Primary Care Physician - Jose Grace MD This Is Your Medications List Contact prescribing physician if questions or concerns Misc Prescription (Misc DME Prescription) Misc Prescription (Misc DME Prescription) Misc Prescription (Misc DME Prescription) Misc Prescription (Misc DME Prescription) aspirin (aspirin 81 mg Oral EC Tab) atorvastatin (atorvastatin 40 mg Tab) glipiZIDE (glipiZIDE 5 mg Tab) hydrochlorothiazide-li sinopril (hydrochlorothiazide-l isinopril 12.5 mg-20 mg Tab) magnesium oxide (magnesium oxide 400 mg Tab) metformin (Glucophage XR 500 mg Tab-ER) omeprazole (omeprazole 40 mg Cap-DR) potassium chloride (potassium chloride 10 mEq Cap-ER) tamsulosin (tamsulosin 0.4 mg Cap) Procedures Performed Arthroscopy, back surgery, Carpal tunnel release, hand and elbow surgery, Hand tendon repaired. Discharge Vitals Temperature (Temporal Artery) 36.9 ?C Heart Rate (Peripheral) 118 Respiratory Rate 18 Blood Pressure 124/72 Height 175.4 cm Height 69 in Weight 106.8 kg Weight 234.96 lb BMI 34.71 What to do next Scheduled Follow-Up Appointments 2023 10:00 AM EST With: Jose Grace MD Where: [facility] Invalid Interpretation Code [address] [place] [address]- \.br\ Tuesday 3:00 PM EST \.br\ With: Jose Grace MD\.br\ Where: [facility] BMPon 06-28-2023 Anion gap [Moles/Vol] 15 mmol/L Normal 6-16 [facility] Comment on above: Performed By: #### 1 [id number] #### [facility] Laboratory [address] [place] [address] BUN/Creat Ratio 8 No Units Low 10-20 [facility] Comment on above: Performed By: #### 1 [id number] #### [facility] [address] [place] [address] Calcium [Mass/Vol] 8.6 mg/dL Low 8.9-11.1 [facility] Comment on above: Performed By: #### 1 [id number] #### [facility] [address] [place] [address] Chloride [Moles/Vol] 100 mmol/L Low 101-111 [facility] Comment on above: Performed By: #### 1 [id number] #### [facility] [address] [place] [address] CO2 [Moles/Vol] 28 mmol/L Normal 21-31 [facility] Comment on above: Performed By: #### 1 [id number] #### [facility] [address] [place] [address] Creatinine [Mass/Vol] 1.3 mg/dL Normal 0.5-1.3 [facility] Comment on above: Performed By: #### 1 [id number] #### [facility] [address] [place] [address] Glucose [Mass/Vol] 284 mg/dL High 55-199 [facility] Comment on above: Performed By: #### 1 [id number] #### [facility] [address] [place] [address] Potassium [Moles/Vol] 4.1 mmol/L Normal 3.5-5.3 [facility] Comment on above: Performed By: #### 1 [id number] #### [facility] [address] [place] [address] Sodium [Moles/Vol] 139 mmol/L Normal 135-145 [facility] Comment on above: Performed By: #### 1 [id number] #### [facility] [address] [place] [address] Urea nitrogen [Mass/Vol] 11 mg/dL Normal 5-21 [facility] Comment on above: Performed By: #### 1 [id number] #### [facility] [address] [place] [address] CHEMISTRYOrdered By: SYSTEM SYSTEM on 06-28-2023 Anion gap [Moles/Vol] 15 mmol/L Normal 6 - 16 mEq/L Remisol Chem Calcium [Mass/Vol] 8.6 mg/dL Low 8.9 - 11.1 mg/dL Remisol Chem Chloride [Moles/Vol] 100 mmol/L Low 101 - 111 mmol/L Remisol Chem CO2 [Moles/Vol] 28 mmol/L Normal 21 - 31 mmol/L Remis ol Chem Creatinine [Mass/Vol] 1.3 mg/dL Normal 0.5 - 1.3 mg/dL Remisol Chem eGFR 59 mL/min/1.73 m2 Normal >=59mL/min /1.73 m2 Remisol Chem Glucose [Mass/Vol] 284 mg/dL High 55 - 199 mg/dL Re misol Chem Potassium [Moles/Vol] 4.1 mmol/L Normal 3.5 - 5.3 mmol/L Remisol Chem Sodium [Moles/Vol] 139 mmol/L Normal 135 - 145 mmol/L Remisol Chem Urea nitrogen [Mass/Vol] 11 mg/dL Normal 5 - 21 mg/dL Remisol Chem Urea nitrogen/Creatinine [Mass ratio] 8 mg/mg Low 10 - 20 Remisol Chem Family Medicine Office/Clini c Noteon 06-28-2023 Family Medicine Office/Clinic Note HPI Staff Lima is a 68 year old male presenting for hospital follow up [place] [facility] [place]: 06/14/23 Discharge date: 06/15/23 Symptoms the patient presented with: dizziness and hypokalemia sent there by Dr Grace Current concerns: none seeing urologist now for bladder retention, self cath at night to drain his bladder. He's feeling much better Flu: UTD 03/16/23 questions/concerns: History of Present Illness Here for hospital follow up. - Doing well - Feeling better - See staff HPI for more. Review of Systems PHQ Score Initial Depression Screen Score: 0 SCORE Physical Exam Vitals & Measurements T: 36.9 ?C(Temporal Artery) HR: 118(Peripheral) RR: 18 BP: 124/72 SpO2: 99% HT: 69 in HT: 175.4 cm WT: 106.8 kg WT: 234.96 lb BMI: 34.71 General: alert, no acute distress ENMT: oral mucosa moist, Cardiovascular: normal peripheral perfusion Respiratory: respirations non labored Extremities: no deformity, no trauma Neurological: oriented x 4, LOC appropriate for age, CN II-XII intact, motor strength equal & normal bilaterally, speech normal Assessment/Plan 1. Hospital discharge follow-up (Z09: Encounter for follow-up examination after completed treatment for conditions other than malignant neoplasm) - TCM reviewed. - D/C summary reviewed Ordered: Basic Metabolic Panel 2. Dizziness (R42: Dizziness and giddiness) - Greatly improved - Continues to feel better. Ordered: Basic Metabolic Panel Body Mass Index (BMI) documented 3008F Current tobacco non-user 1036F Depression Screening Negative 3352F Influenza immunization administered or previously received 4274F Most recent diastolic blood pressure <80 mm Hg 3078F Patient screen for fall risk: no falls in last year or 1 fall with no injury in last year 1101F Systolic BP <130 mm Hg (Most Recent) 3074F 3. Hypokalemia (E87.6: Hypokalemia) - Will recheck today. - Follow up PRN Ordered: Basic Metabolic Panel Body Mass Index (BMI) documented 3008F Current tobacco non-user 1036F Depression Screening Negative 3352F Influenza immunization administered or previously received 4274F Most recent diastolic blood pressure <80 mm Hg 3078F Patient screen for fall risk: no falls in last year or 1 fall with no injury in last year 1101F Systolic BP <130 mm Hg (Most Recent) 3074F 4. Major depressive disorder, recurrent, moderate (F33.1: Major depressive disorder, recurrent, moderate) - In remission today Ordered: Basic Metabolic Panel Body Mass Index (BMI) documented 3008F Current tobacco non-user 1036F Depression Screening Negative 3352F Influenza immunization administered or previously received 4274F Most recent diastolic blood pressure <80 mm Hg 3078F Patient screen for fall risk: no falls in last year or 1 fall with no injury in last year 1101F Systolic BP <130 mm Hg (Most Recent) 3074F 5. BMI 34.0-34.9,adult (Z68.34: Body mass index [BMI] 34.0-34.9, adult) - BMI education given Ordered: Basic Metabolic Panel Body Mass Index (BMI) documented 3008F Current tobacco non-user 1036F Depression Screening Negative 3352F Influenza immunization administered or previously received 4274F Most recent diastolic blood pressure <80 mm Hg 3078F Patient screen for fall risk: no falls in last year or 1 fall with no injury in last year 1101F Systolic BP <130 mm Hg (Most Recent) 3074F 6. Class 1 obesity due to excess calories in adult (E66.09: Other obesity due to excess calories) - Diet and exercise advised Ordered: Basic Metabolic Panel Body Mass Index (BMI) documented 3008F Current tobacco non-user 1036F Depression Screening Negative 3352F Influenza immunization administered or previously received 4274F Most recent diastolic blood pressure <80 mm Hg 3078F Patient screen for fall risk: no falls in last year or 1 fall with no injury in last year 1101F Systolic BP <130 mm Hg (Most Recent) 3074F 7. Former smoker (Z87.891: Personal history of nicotine dependence) - Please continue to not smoke Ordered: Basic Metabolic Panel Body Mass Index (BMI) documented 3008F Current tobacco non-user 1036F Depression Screening Negative 3352F Influenza immunization administered or previously received 4274F Most recent diastolic blood pressure <80 mm Hg 3078F Patient screen for fall risk: no falls in last year or 1 fall with no injury in last year 1101F Systolic BP <130 mm Hg (Most Recent) 3074F 8. BPH with urinary obstruction (N40.1: Benign prostatic hyperplasia with lower urinary tract symptoms) - Continue to self cath Other obstructive and reflux uropathy (N13.8: Other obstructive and reflux uropathy) Follow-up No qualifying data available Patient Education BMI for Adults Problem List/Past Medical History Ongoing Alcohol abuse, in remission BPH with urinary obstruction Diabetic nephropathy associated with type 2 diabetes mellitus Dizziness Edema Elevated PSA Fatigue Ga (more content not included)... Normal [facility] Comment on above: Result Comment: Elec tronically Signed By: Ruiz REYNOLDS, Jose Cordoba.br\Date and Time Signed: 06/28/23 08:10 EST Patient Educationon 06-28-19 Patient Education Nutrition BMI for Adults What [...] numbers. This can be done either in [place] ([place] or metric measurements. Note that charts and online BMI calculators are available to help you find your BMI quickly and easily without having to do these calculations yourself. To calculate your BMI in [place] ([place] measurements: 1. Measure your weight in [...] for Disease Control and Prevention: www.cdc.gov ? [place] Heart Association: www.heart.org ? National Heart, Lung, and Blood [place]: www.nhlbi.nih.gov Summary ? Body mass index (BMI) is a number that is calculated from a person's weight and height. ? BMI may help estimate how much of a person's weight is composed of fat. BMI can help identify those who may be at higher risk for certain medical problems. ? BMI can be measured using [place]ian measurements or metric measurements. ? BMI charts are used to identify whether you are underweight, normal weight, overweight, or obese. This information is not intended to replace advice given to you by your health care provider. Make sure you discuss any questions you have with your health care provider. Document Revised: 02/13/2020 Document Reviewed: 12/21/2019 [employer] Patient Education ? 2022 [employer]. [facility] eGFRon 06-28-2023 eGFR 59 mL/min/1.73 m2 Normal >=59 [facility] Comment on above: Order Comment: Order added by Discern Expert. Performed By: #### 1 [id number], [id number] #### [facility] Laboratory [address] [place] [address] ED Note-Physicianon 06-24-19 ED Note-Physician [id number]#1.0 0TIFF Normal [facility] Lab Reportson 06-24-2023 Lab Reports [id number]#1.0 0TIFF Normal [facility] Lab Reports [id number]#1.0 0TIFF Normal [facility] Lab Reports [id number]#1.0 0TIFF Normal [facility] RAD - CT Reporton 06-24-2023 RAD - CT Report [id number]#1.0 0TIFF Normal [facility] RAD - MISCon 06-24-2023 RAD - MISC [id number]#1.0 0TIFF Normal [facility] Ambulatory Visit Summaryon 0 06-23-2023 Ambulatory Visit Summary ALICJA REYES :1955 Visit Date:06/23/2023 Ambulatory Visit Instructions Your Care Team Attending Physician - TIFFANY REYNOLDS, Manolo Jo Primary Care Physician - Ruiz REYNOLDS, Jose Thompson This Is Your Medications List Misc Prescription (Misc DME Prescription) Misc Prescription (Misc DME Prescription) Misc Prescription (Misc DME Prescription) Misc Prescription (Misc DME Prescription) aspirin (aspirin 81 mg Oral EC Tab) atorvastatin (atorvastatin 40 mg Tab) glipiZIDE (glipiZIDE 5 mg Tab) hydrochlorothiazide-li sinopril (hydrochlorothiazide-l isinopril 12.5 mg-20 mg Tab) magnesium oxide (magnesium oxide 400 mg Tab) metformin (Glucophage XR 500 mg Tab-ER) omeprazole (omeprazole 40 mg Cap-DR) potassium chloride (potassium chloride 10 mEq Cap-ER) tamsulosin (tamsulosin 0.4 mg Cap) Procedures Performed Arthroscopy, back surgery, Carpal tunnel release, hand and elbow surgery, Hand tendon repaired. What to do next Scheduled Follow-Up Appointments Tuesday 7:45 AM EST With: Jose Grace MD Where: [facility] Invalid Interpretation Code [address] [place] [address]- \.br\ Tuesday 2:00 PM EST \.br\ With: Troy Coulter MD\.br\ Where: [facility]\.br\ Tuesday 2:00 PM EST \.br\ With:\.br\ Where: [facility] 06-23-19 [facility] Case Information Case Priority: None Programs: Transition Care Management Complex Case Management Chronic Care/Condition Management Behavioral [facility] Referral Source: System Identified Referral Reason: System identified Case Type: Transition Care Management Risk Score: 1.32 Case Status: Enrolled (June 16, 2023) Date Assigned: June 16, 2023 Assigned By: Alicja Castellon Date Enrolled: June 16, 2023 Assigned Primary Personnel: Alicja Castellon Assigned Secondary Personnel: -- Case Physician: Jose Grace MD Problems Ongoing Alcohol abuse, in remission BPH with urinary obstruction Diabetic nephropathy associated with type 2 diabetes mellitus Disorder of prostate Dizziness Edema Elevated PSA Fatigue Gastroesophageal reflux disease without esophagitis Hematuria Hypercholesterolemia Hypokalemia Incomplete bladder emptying Kidney stone Major depressive disorder, recurrent, moderate Morbid obesity Primary hypertension Prostate cancer screening Recurrent UTI Right flank pain SOB (shortness of breath) on exertion Type 2 diabetes mellitus with hypercholesterolemia Urinary retention Historical No qualifying data Procedure/Surgical History Arthroscopy, back surgery, Carpal tunnel release, hand and elbow surgery, Hand tendon repaired. Home Medications aspirin 81 mg Oral EC Tab, 81 mg= 1 tab(s), Oral, Daily atorvastatin 40 mg Tab, 40 mg= 1 tab(s), Oral, Daily, 1 refills glipiZIDE 5 mg Tab, 10 mg= 2 tab(s), Oral, BID, 1 refills, Still taking, not as prescribed: patient is taking one tablet twice daily Glucophage XR 500 mg Tab-ER, 1000 mg= 2 tab(s), Oral, BID, 1 refills hydrochlorothiazide-li sinopril 12.5 mg-20 mg Tab, 1 tab(s), Oral, Daily, 3 refills magnesium oxide 400 mg Tab, 400 mg= 1 tab(s), Oral, Daily Misc DME Prescription, See Instructions, 3 refills Misc DME Prescription, See Instructions, 3 refills Misc DME Prescription, See Instructions, 3 refills Misc DME Prescription, See Instructions omeprazole 40 mg Cap-DR, 40 mg= 1 cap(s), Oral, Daily potassium chloride 10 mEq Cap-ER, 10 mEq= 1 cap(s), Oral, Daily tamsulosin 0.4 mg Cap, 0.4 mg= 1 cap(s), Oral, qPM Allergies CeleBREX (Unknown) Social History Alcohol - Medium Risk, 11/15/2012 Beer, Daily, 3.00 drinks/episode maximum. Alcohol use interferes with work or home: No. Drinks more than intended: No. Others hurt by drinking: No. Ready to change: No. Household alcohol concerns: No., 11/15/2012 Substance Abuse - Denies Substance Abuse, 11/15/2012 Tobacco - Low Risk, 11/15/2012 Former smoker, quit more than 30 days ago Tobacco Use:. Smokeless tobacco user within last 30 days Smokeless Tobacco Use:. Cigarettes, Household tobacco concerns: No., 06/13/2023 Family History Primary malignant neoplasm of colon: Father. Screenings and Assessments 06/16/23 10:41:00 Result Name Value Comment Phone Call Monitoring Consent Agreed to continue call Phone Verification Patient Information Full name, street address and date of verified CM Program Enrollment Provides verbal consent for enrollment Goals and Interventions Care Plan Progress Note TCM#2- Patient states I'm doing fine.' Patient had f/u with urology and they removed the Chong. Patient did he fist self cath last night, states 'went better than I thought.' Patient denies any issues or concerns with urinary system. Patient states bowels are 'just fine.' Patient is eating and drinking 'fine.' No change in sleep pattern noted. Patient is requesting a refill on omeprazole (proposal sent to PCP.) Patient denies any further questions or concerns. Communication Events Date: June 23, 2023 Method: Phone call Type: Outbound Duration (min): 2 Outcome: Case discussion Contact Type: disability coordinator Contact Name: Alicja Castellon Notes: TCM#2- Spoke with patient for tcm, see ft summary note. Created By: Alicja Castellon Date: June 16, 2023 Method: Phone call Type: Outbound Duration (min): 8 Outcome: Case discussion Contact Type: disability coordinator Contact Name: Alicja Castellon Notes: TCM#1- spoke with patient for initial tcm, see ft summary note. Created By: Alicja Castellon [facility] [place]enson 06-23-2023 Screens [id number]#1.0 0TIFF [facility] Screens [id number]#1.0 0TIFF [facility] Ambulatory Visit Summaryon 0 06-22-2023 Ambulatory Visit Summary ALICJA REYES :1955 Visit Date:06/22/2023 Ambulatory Visit Instructions Your Diagnosis Elevated PSA Your Care Team Attending Physician - YOEL OBREGON PA-C Primary Care Physician - Jose Grace MD. This Is Your Medications List [facility] Misc Prescription (Misc DME Prescription) Misc Prescription ([facility] Prescription) aspirin (aspirin 81 mg Oral EC Tab) atorvastatin (atorvastatin 40 mg Tab) glipiZIDE (glipiZIDE 5 mg Tab) hydrochlorothiazide-li sinopril (hydrochlorothiazide-l isinopril 12.5 mg-20 mg Tab) magnesium oxide (magnesium oxide 400 mg Tab) metformin (Glucophage XR 500 mg Tab-ER) omeprazole (omeprazole 40 mg Cap-DR) potassium chloride (potassium chloride 10 mEq Cap-ER) tamsulosin (tamsulosin 0.4 mg Cap) Procedures Performed Arthroscopy, back surgery, Carpal tunnel release, hand and elbow surgery, Hand tendon repaired. What to do next Scheduled Follow-Up Appointments Tuesday 7:45 AM EST With: Jose Grace MD Where: [facility] Invalid Interpretation Code [address] [id number] \.br\ Tuesday 2:00 PM EST \.br\ With: Troy Coulter MD\.br\ Where: [facility]\.br\ Tuesday 2:00 PM EST \.br\ With:\.br\ Where: [facility] Ambulatory Visit Summaryon 0 06-20-2023 Ambulatory Visit Summary ALICJA REYES :1955 Visit Date:06/20/2023 Ambulatory Visit Instructions Your Diagnosis Hypokalemia Tests Performed Basic Metabolic Panel -- Results Pending -- Please visit your patient portal for your results or contact your primary care physician. Your Care Team Attending Physician - Jose Grace MD. Primary Care Physician - Jose Grace MD This Is Your Medications List Misc Prescription (Misc DME Prescription) Misc Prescription (Misc DME Prescription) Misc Prescription (Misc DME Prescription) Misc Prescription (Misc DME Prescription) aspirin (aspirin 81 mg Oral EC Tab) atorvastatin (atorvastatin 40 mg Tab) glipiZIDE (glipiZIDE 5 mg Tab) hydrochlorothiazide-li sinopril (hydrochlorothiazide-l isinopril 12.5 mg-20 mg Tab) magnesium oxide (magnesium oxide 400 mg Tab) metformin (Glucophage XR 500 mg Tab-ER) omeprazole (omeprazole 40 mg Cap-DR) potassium chloride (potassium chloride 10 mEq Cap-ER) tamsulosin (tamsulosin 0.4 mg Cap) Procedures Performed Arthroscopy, back surgery, Carpal tunnel release, hand and elbow surgery, Hand tendon repaired. What to do next Scheduled Follow-Up Appointments Tuesday 7:45 AM EST With: Jose Grace MD Where: [facility] Invalid Interpretation Code [address] [place] [address]- \.br\ 2023 10:00 AM EST \.br\ With: Jose Grace MD\.br\ Where: [facility] BMPon 06-20-2023 Anion gap [Moles/Vol] 15 mmol/L Normal 6-16 [facility] Comment on above: Performed By: #### 2 [id number] #### [facility] Laboratory [address] [place] [address] BUN/Creat Ratio 8 No Units Low 10-20 [facility] Comment on above: Performed By: #### 2 [id number] #### [facility] [address] [place] [address] Calcium [Mass/Vol] 8.2 mg/dL Low 8.9-11.1 [facility] Comment on above: Performed By: #### 2 [id number] #### [facility] Laboratory [address] [place] [address] Chloride [Moles/Vol] 102 mmol/L Normal 101-111 [facility] Comment on above: Performed By: #### 2 [id number] #### [facility] [address] [place] [address] CO2 [Moles/Vol] 26 mmol/L Normal 21-31 [facility] Comment on above: Performed By: #### 2 [id number] #### [facility] [address] [place] [address] Creatinine [Mass/Vol] 1.3 mg/dL Normal 0.5-1.3 [facility] Comment on above: Performed By: #### 2 [id number] #### [facility] [address] [place] [address] Glucose [Mass/Vol] 243 mg/dL High 55-199 [facility] Comment on above: Performed By: #### 2 [id number] #### [facility] [address] [place] [address] Potassium [Moles/Vol] 3.5 mmol/L Normal 3.5-5.3 [facility] Comment on above: Performed By: #### 2 [id number] #### [facility] [address] [place] [address] Sodium [Moles/Vol] 139 mmol/L Normal 135-145 [facility] Comment on above: Performed By: #### 2 [id number] #### [facility] [address] [place] [address] Urea nitrogen [Mass/Vol] 11 mg/dL Normal 5-21 [facility] Comment on above: Performed By: #### 2 [id number] #### [facility] [address] [place] [address] Nurse Consultation Noteon Nurse Consultation Note Reason for Visit Blood draw Assessment/Plan Patient arrives today for a blood draw. Hypokalemia (E87.6: Hypokalemia) Medications aspirin 81 mg Oral EC Tab, 81 mg= 1 tab(s), Oral, Daily atorvastatin 40 mg Tab, 40 mg= 1 tab(s), Oral, Daily, 1 refills glipiZIDE 5 mg Tab, 10 mg= 2 tab(s), Oral, BID, 1 refills, Still taking, not as prescribed: patient is taking one tablet twice daily Glucophage XR 500 mg Tab-ER, 1000 mg= 2 tab(s), Oral, BID, 1 refills hydrochlorothiazide-li sinopril 12.5 mg-20 mg Tab, 1 tab(s), Oral, Daily, 3 refills magnesium oxide 400 mg Tab, 400 mg= 1 tab(s), Oral, Daily Misc DME Prescription, See Instructions, 3 refills Misc DME Prescription, See Instructions, 3 refills Misc DME Prescription, See Instructions, 3 refills Misc DME Prescription, See Instructions omeprazole 40 mg Cap-DR, 40 mg= 1 cap(s), Oral, Daily potassium chloride 10 mEq Cap-ER, 10 mEq= 1 cap(s), Oral, Daily tamsulosin 0.4 mg Cap, 0.4 mg= 1 cap(s), Oral, qPM Allergies CeleBREX (Unknown) Immunizations Vaccine Date Status Comments influenza virus vaccine, inactivated 03/16/2023 Recorded influenza virus vaccine, inactivated - Not Given Postpone due to refusal influenza virus vaccine, inactivated 04/05/2022 Recorded SARS-CoV-2 (COVID-19) [id number] 04/05/2022 Recorded influenza virus vaccine, inactivated 03/01/2021 Recorded SARS-CoV-2 (COVID-19) mRNA BNT-162b2 vax 03/01/2021 Recorded 2023-01-13: [id number] SARS-CoV-2 (COVID-19) mRNA BNT-162b2 vax 08/08/2020 Recorded SARS-CoV-2 (COVID-19) mRNA BNT-162b2 vax 07/18/2020 Recorded pneumococcal 13-valent vaccine 03/09/2020 Recorded influenza virus vaccine, inactivated 03/09/2020 Recorded Normal [facility] eGFRon 06-20-2023 eGFR 59 mL/min/1.73 m2 Normal >=59 [facility] Comment on above: Order Comment: Order added by Discern Expert. Performed By: #### 2 [id number] #### [facility] [address] [place] [address] Discharge Instructionson Discharge Instructions [id number]. 00TIFF Normal [facility] C Urineon 06-16-2023 Bacteria identified Cx Nom (U) Microbiology PROCEDURE: Urine Culture [R1] SOURCE: U Cath BODY SITE: COLLECTED DATE/TIME: 06/14/2023 22:52 EST RECEIVED DATE/TIME: 06/14/2023 23:19 EST START DATE/TIME: 06/14/2023 23:19 EST FREE TEXT SOURCE: sterile from cath port ROSA AGPCNP, ROSA AGPCNP, Maria D Maria D FINAL REPORTS Final Report [] Verified Date/Time: 06/16/2023 10:05 EST 200 cfu/ml Mixed skin contaminants Sirisha not indicative of a Cath specimen Performing Locations R1: This test was performed at: [facility], [address] [place] [address], [id number]- , [place], Normal [facility] Comment on above: Performed By: #### 1 [id number] #### [facility] [address] [place] [address] Population Health 06-16-19 24 Population Health Case Information Case Priority: None Programs: Transition Care Management Complex Case Management Chronic Care/Condition Management Behavioral Health CCM Referral Source: System Identified Referral Reason: System identified Case Type: Transition Care Management Risk Score: 1.32 Case Status: Enrolled (June 16, 2023) Date Assigned: June 16, 2023 Assigned By: Alicja Castellon Date Enrolled: June 16, 2023 Assigned Primary Personnel: Alicja Castellon Assigned Secondary Personnel: -- Case Physician: Ruiz REYNOLDS, Jose Godfrey Ongoing Alcohol abuse, in remission Diabetic nephropathy associated with type 2 diabetes mellitus Disorder of prostate Dizziness Edema Fatigue Gastroesophageal reflux disease without esophagitis Hematuria Hypercholesterolemia Hypokalemia Major depressive disorder, recurrent, moderate Morbid obesity Primary hypertension Prostate cancer screening Right flank pain SOB (shortness of breath) on exertion Type 2 diabetes mellitus with hypercholesterolemia Urinary retention Historical No qualifying data Procedure/Surgical History Arthroscopy, back surgery, Carpal tunnel release, hand and elbow surgery, Hand tendon repaired. Home Medications aspirin 81 mg Oral EC Tab, 81 mg= 1 tab(s), Oral, Daily atorvastatin 40 mg Tab, 40 mg= 1 tab(s), Oral, Daily, 1 refills glipiZIDE 5 mg Tab, 10 mg= 2 tab(s), Oral, BID, 1 refills, Still taking, not as prescribed: patient is taking one tablet twice daily Glucophage XR 500 mg Tab-ER, 1000 mg= 2 tab(s), Oral, BID, 1 refills hydrochlorothiazide-li sinopril 12.5 mg-20 mg Tab, 1 tab(s), Oral, Daily, 3 refills magnesium oxide 400 mg Tab, 400 mg= 1 tab(s), Oral, Daily Misc DME Prescription, See Instructions, 3 refills Misc DME Prescription, See Instructions, 3 refills Misc DME Prescription, See Instructions, 3 refills Misc DME Prescription, See Instructions omeprazole 40 mg Cap-DR, 40 mg= 1 cap(s), Oral, Daily potassium chloride 10 mEq Cap-ER, 10 mEq= 1 cap(s), Oral, Daily tamsulosin 0.4 mg Cap, 0.4 mg= 1 cap(s), Oral, qPM Allergies CeleBREX (Unknown) Social History Alcohol - Medium Risk, 11/15/2012 Beer, Daily, 3.00 drinks/episode maximum. Alcohol use interferes with work or home: No. Drinks more than intended: No. Others hurt by drinking: No. Ready to change: No. Household alcohol concerns: No., 11/15/2012 Substance Abuse - Denies Substance Abuse, 11/15/2012 Tobacco - Low Risk, 11/15/2012 Former smoker, quit more than 30 days ago Tobacco Use:. Smokeless tobacco user within last 30 days Smokeless Tobacco Use:. Cigarettes, Household tobacco concerns: No., 06/13/2023 Family History Primary malignant neoplasm of colon: Father. Screenings and Assessments 06/16/23 10:41:00 Result Name Value Comment Phone Call Monitoring Consent Agreed to continue call Phone Verification Patient Information Full name, street address and date of verified CM Program Enrollment Provides verbal consent for enrollment Goals and Interventions Care Plan Progress Note Admit Date: 06/14/2023 Date of Discharge: 06/15/2023 Follow-up appointment scheduled? 06/28/2023 with PCP, Dr. Grace at 0745 Did you understand your discharge instructions? yes Are you able to follow them? yes Did you receive new medications? yes, magnesium oxide 400 mg qd, potassium chloride 10 meq qd Have you filled the Rx's? yes Are you taking them as prescribed? yes Are you having difficulty eating or swallowing your pills? no Are you having any stomach upset, diarrhea or constipation? no How are you sleeping? 'not well' states d/t the Chong in place Are you having any pain? no Do you have everything you need at home to care for yourself? yes Do you have Home Health? no Called patient for initial Transitional Care Management Program call. Patient is a low readmission risk. Patient was [place] [facility] by PCP, Dr. Grace on 06/24, d/t low calcium and potassium levels. Reviewed d/c instructions and dx of; Dizziness, Hypokalemia, Hypomagnesemia, Hypocalcemia, Urinary retention, Type 2 diabetes mellitus with hypercholesterolemia, Primary hypertension, Hypercholesterolemia, Pure hypercholesterolemia, unspecified, H/O ETOH abuse, History of nicotine use, Obesity, Abnormal diagnostic test, Anemia. Medications reconciled with d/c list, EHR, and patient. Reviewed the purpose and side effects of new medications with patient. Patient states he is doing pretty good. Does not have BP monitor in home. Patient has Chong in place. States Chong is draining well and urine clear yellow with no visible blood. Patient does secure Chong drain to leg to minimize tugging and discomfort. Notes it is still hard to sleep at night and is uncomfortable. Patient denies any bowel issues. Patient is eating and drinking well. Hydration encouraged. Patient reports his average BS is around 170. He has not yet started metformi (more content not included)... Normal [facility] Capillary Glucose POCon 06-06 Glucose [Mass/Vol] 201 mg/dL High 55-99 [facility] Comment on above: Result Comment: Kingston gloria RN/ Performed By: #### 1 [id number], [id number] #### [facility] [address] [place] [address] Glucose [Mass/Vol] 168 mg/dL High 55-99 [facility] Comment on above: Result Comment: Kingston gloria RN/ Performed By: #### 2 [id number] #### [facility] [address] [place] [address] Inpatient Clinical Summaryon 06-15-2023 Inpatient Clinical Summary [address] [address] Clinical Summary Person Information: Name: ALICJA REYES Age: 68 Years : 1955 Sex: Male PCP: Jose Grace MD Marital Status: Phone: [phone] Race: White Ethnicity: Non- or Language: Tunisian Visit Id: Visit Reason: Dizziness; Abnormal diagnostic test; DR GRACE SENT HIM OVER Speciality: Acuity: Enc Type: Observation Med Service: Medical Arrival: 06/14/2023 10:42:39 Discharge: Dispo Type: Admitted as IP to this Hosp Address: [address] [place] [id number] Provider Notes: Diagnosis: 1:Dizziness; 2:Hypokalemia; 3:Hypomagnesemia; 4:Hypocalcemia; 5:Urinary retention; 6:Type 2 diabetes mellitus with hypercholesterolemia; 7:Primary hypertension; 8:Hypercholesterolemia ; 9:H/O ETOH abuse; 10:History of nicotine use; 11:Obesity; Pure hypercholesterolemia, unspecified Problems Active Major depressive disorder, recurrent, moderate SOB (shortness of breath) on exertion Dizziness Alcohol abuse, in remission Urinary retention Hypokalemia Morbid obesity Fatigue Edema Type 2 diabetes mellitus with hypercholesterolemia Right flank pain Hematuria Prostate cancer screening Diabetic nephropathy associated with type 2 diabetes mellitus Primary hypertension Gastroesophageal reflux disease without esophagitis Disorder of prostate Hypercholesterolemia Smoking Status: Former Smoker Functional Status: Sensory Deficits: History of Falls: Mobility Assistance Prior to Admission: Independent ADLs: Minimal assistance Current Level of Assistance for Self-Care/Mobility: Cognitive Status: Oriented x 3 Allergies CeleBREX (Unknown) Measurements: Height: 175.26 cm Weight: 105.5 kg Blood Pressure: 174 mmHg / 81 mmHg BMI: 33.37 kg/m2 Procedures No Procedures Documented Immunizations No Immunizations Documented This Visit Final Med List: aspirin (aspirin 81 mg Oral EC Tab) 1 Tablets By Mouth every day. Refills: 0. atorvastatin (atorvastatin 40 mg Tab) 1 Tablets By Mouth every day. Refills: 1. glipiZIDE (glipiZIDE 5 mg Tab) 2 Tablets By Mouth 2 times a day. Refills: 1. hydrochlorothiazide-li sinopril (hydrochlorothiazide-l isinopril 12.5 mg-20 mg Tab) 1 Tablets By Mouth every day. Refills: 3. magnesium oxide (magnesium oxide 400 mg Tab) 1 Tablets By Mouth every day. Refills: 0. metformin (Glucophage XR 500 mg Tab-ER) 2 Tablets By Mouth 2 times a day. Refills: 1. Misc Prescription (Misc DME Prescription) Alcohol prep pads Use to test blood sugars daily Dx E11.9. Refills: 3. Misc Prescription (Misc DME Prescription) One Touch Ultra 2 glucose meter kit Use to tests sugars daily E11.9. Refills: 0. Misc Prescription (Misc DME Prescription) One touch ultra 2 test strips Use to tests sugars once a day Dx E11.9. Refills: 3. Misc Prescription (Misc DME Prescription) Soft click lancets Use to test blood sugars once a day Dx E11.9. Refills: 3. omeprazole (omeprazole 40 mg Cap-DR) 1 Capsules By Mouth every day. Refills: 0. potassium chloride (potassium chloride 10 mEq Cap-ER) 1 Capsules By Mouth every day. Refills: 0. tamsulosin (tamsulosin 0.4 mg Cap) 1 Capsules By Mouth once a day (in the evening). Care Team Members: Attending Physician: Ranjan ROSS MD Consulting Physician: Referring Physician: Follow up: With: Address: When: Jose Grace 06/28/2023 7:45 AM With: Address: When: ERIC NAQVIORMACK 3 [facility] [address] [place] [address] [facility] (1) Comments: Call for GI colonoscopy appointment Type Location [facility] Follow Up w/TCM [facility] 06/28/2023 7:45 AM 06/28/2023 8:00 AM Confirmed URO New Patient [facility] [place] 06/29/2023 10:15 AM 06/29/2023 10:30 AM Confirmed FM Open [facility] 07/14/2023 10:00 AM 07/14/2023 10:15 AM Confirmed Cardiology New Patient (FT) [facility] [place] 07/15/2023 2:00 PM 07/15/2023 2:15 PM Confirmed FM Medicare Wellness Subsequent [facility] 07/25/2023 2:00 PM 07/25/2023 3:00 PM Confirmed FM Open [facility] 07/25/2023 3:00 PM 07/25/2023 3:15 PM Confirmed Patient Education Information: Hypomagnesemia; Hypokalemia; Dizziness Normal [facility] Inpatient Patient Summaryon 06-15-2023 Inpatient Patient Summary ALICJA REYES :1955 Visit Date:06/14/2023 Inpatient Discharge Instructions Your Care Team Admitting Physician - Ranjan ROSS MD Reason for Your Visit dizzy and had lab work that was abnormal Your Diagnosis Dizziness Hypokalemia Hypomagnesemia Hypocalcemia Urinary retention Type 2 diabetes mellitus with hypercholesterolemia Primary hypertension Hypercholesterolemia, Pure hypercholesterolemia, unspecified H/O ETOH abuse History of nicotine use Obesity Abnormal diagnostic test Anemia Dizziness Tests Performed Automated Diff BMP Capillary Glucose POC CBC w/ Auto Diff CMP eGFR Electrolyte Panel ETOH Level Ferritin Folate Level Iron Level Lactate Dehydrogenase Lipase Level Magnesium Level Reticulocyte Count TIBC Calculated Toxicology Drug Screen Urine TSH With T4fr Reflex UA With Cult Reflex Vitamin B12 Level Vitamin D 25 Hydroxy This Is Your Medications List Misc Prescription (Misc DME Prescription) Misc Prescription (Misc DME Prescription) Misc Prescription (Misc DME Prescription) Misc Prescription (Misc DME Prescription) aspirin (aspirin 81 mg Oral EC Tab) atorvastatin (atorvastatin 40 mg Tab) glipiZIDE (glipiZIDE 5 mg Tab) hydrochlorothiazide-li sinopril (hydrochlorothiazide-l isinopril 12.5 mg-20 mg Tab) magnesium oxide (magnesium oxide 400 mg Tab) metformin (Glucophage XR 500 mg Tab-ER) omeprazole (omeprazole 40 mg Cap-DR) potassium chloride (potassium chloride 10 mEq Cap-ER) tamsulosin (tamsulosin 0.4 mg Cap) Procedure History Arthroscopy, back surgery, Carpal tunnel release, hand and elbow surgery, Hand tendon repaired. Discharge Vitals Temperature (Oral) 36.4 ?C Heart Rate (Monitored) 76 Respiratory Rate 18 Blood Pressure 150/82 Height 175.26 cm Weight 105.5 kg BMI 33.37 What to do next Instructions From Your Doctor Event Name Event Result Discharge Activity Activity as tolerated Discharge Restrictions No restrictions Discharge Diet(s) Fat Modified- Low cholesterol Pending Diagnostic Test Results Urine culture Pharmacy Information [facility] Previously Scheduled Follow-Up Appointments Tuesday 7:45 AM EST With: Jose Grace MD Where: [facility] Invalid Interpretation Code [address] [place] [address]- \.br\ 2023 10:00 AM EST \.br\ With: Jose Grace MD\.br\ Where: [facility] Inpatient Patient Summary [address] [address] Patient Discharge Instructions PERSON INFORMATION Name: ALICJA REYES Date of : 1955 Current Date: 06/15/2023 11:22:36 PHYSICIANS Admitting Physician: Ranjan ROSS MD Primary Care Physician: Jose Grace MD PCP Comment: Discharge Diagnosis: 1:Dizziness; 2:Hypokalemia; 3:Hypomagnesemia; 4:Hypocalcemia; 5:Urinary retention; 6:Type 2 diabetes mellitus with hypercholesterolemia; 7:Primary hypertension; 8:Hypercholesterolemia ; 9:H/O ETOH abuse; 10:History of nicotine use; 11:Obesity; Pure hypercholesterolemia, unspecified Condition at Discharge: Stable ALICJA REYES has been given the following list of follow-up instructions, prescriptions, and patient education materials: PATIENT FOLLOW-UP INFORMATION Diet: Fat Modified- Low cholesterol Discharge Activity: Activity as tolerated Discharge Restrictions: No restrictions Wound Care Instructions: Remove Your Dressing In Days Call Your Doctor For: IF UNABLE TO CONTACT YOUR PHYSICIAN AND YOU FEEL IT IS AN EMERGENCY, GO TO THE NEAREST EMERGENCY ROOM OR CALL 911 Home Treatment: Devices/Equipment: None Special Services: Additional Instructions: Primary Care Physician to provide the following pending test results: Urine culture Follow up: With: Address: When: Jose Grace 06/28/2023 7:45 AM With: Address: When: ERIC CASTILLO [address] [place], [place] [id number] Business (1) Comments: Call for GI colonoscopy appointment In the event that this physician does not participate in your insurance network, please consult with your insurance company to find a nearby participating provider. Type Location Start [facility] Follow Up w/TCM [facility] 06/28/2023 7:45 AM 06/28/2023 8:00 AM Confirmed URO New Patient [facility] [place] 06/29/2023 10:15 AM 06/29/2023 10:30 AM Confirmed FM Open [facility] 07/14/2023 10:00 AM 07/14/2023 10:15 AM Confirmed Cardiology New Patient (FT) [facility] [place] 07/15/2023 2:00 PM 07/15/2023 2:15 PM Confirmed FM Medicare Wellness Subsequent [facility] 07/25/2023 2:00 PM 07/25/2023 3:00 PM Confirmed Open [facility] 07/25/2023 3:00 PM 07/25/2023 3:15 PM Confirmed Comment: ERIC Song ROBIN D, have received the attached patient education materials/instructions and have verbalized understanding: Patient Signature Date Clinican/Nurse Signature ___ Date HERE ARE THE MEDICATION CHANGES THAT OCCURRED DURING YOUR HOSPITAL STAY New Medications [id number], [address], [place] [id number], [phone] magnesium oxide (magnesium oxide 400 mg Tab) 1 Tablets By Mouth every day. Refills: 0. Last Dose: ___Next Dose: ___ potassium chloride (potassium chloride 10 mEq Cap-ER) 1 Capsules By Mouth every day. Refills: 0. Last Dose: ___Next Dose: ___ Medications to Continue with No Changes Other Medications aspirin (aspirin 81 mg Oral EC Tab) 1 Tablets By Mouth every day. Refills: 0. Last Dose: ___Next Dose: ___ atorvastatin (atorvastatin 40 mg Tab) 1 Tablets By Mouth every day. Refills: 1. Last Dose: ___Next Dose: ___ glipiZIDE (glipiZIDE 5 mg Tab) 2 Tablets By Mouth 2 times a day. Refills: 1. Last Dose: ___Next Dose: ___ hydrochlorothiazide-li sinopril (hydrochlorothiazide-l isinopril 12.5 mg-20 mg Tab) 1 Tablets By Mouth every day. Refills: 3. Last Dose: ___Next Dose: ___ metformin (Glucophage XR 500 mg Tab-ER) 2 Tablets By Mouth 2 times a day. Refills: 1. Last Dose: ___Next Dose: ___ Misc Prescription (Misc DME Prescription) Alcohol prep pads Use to test blood sugars daily Dx E11.9. Refills: 3. Last Dose: ___Next Dose: ___ Misc Prescription (Misc DME Prescription) One Touch Ultra 2 glucose meter kit Use to tests sugars daily E11.9. Refills: 0. Last Dose: ___Next Dose: ___ Misc Prescription (Misc DME Prescription) One touch ultra 2 test strips Use to tests sugars once a day Dx E11.9. Refills: 3. Last Dose: ___Next Dose: ___ Misc Prescription (Misc DME Prescription) Soft click lancets Use to test blood sugars once a day Dx E11.9. Refills: 3. Last Dose: ___Next Dose: ___ omeprazole (omeprazole 40 mg Cap-DR) 1 Capsules By Mouth every day. Refills: 0. Last Dose: ___Next Dose: ___ tamsulosin (tamsulosin 0.4 mg Cap) 1 Capsules By Mouth once a day (in the eveni (more content not included)... Normal [facility] Interdisciplinary Note - Shiraz e Manageron 06-15-2023 Interdisciplinary Note - Newspaper Clipper Pt is awake and alert in bed, await rounds with [facility]. Pt states feeling much better and wants to go home. Pt is form home with , and she will transport at DC. Pt is independent at home and declines any concerns or DC needs. Observation status reviewed and Montez form previously reviewed in ED. Possible DC home later today. . PCP verified and insurance information reviewed and DME discussed. Contact information provided and white board updated. Normal [facility] Comment on above: Result Comment: Elec tronically Signed By: Nilay DAVID, Valarie\.oliver\Date and Time Signed: 06/15/23 09:47 EST Lyteson 06-15-2023 Anion gap [Moles/Vol] 13 mmol/L Normal 6-16 [facility] Comment on above: Performed By: #### 1 [id number], [id number] #### [facility] [address] [place] [address] Chloride [Moles/Vol] 104 mmol/L Normal 101-111 [facility] Comment on above: Performed By: #### 1 [id number], [id number] #### [facility] [address] [place] [address] CO2 [Moles/Vol] 28 mmol/L Normal 21-31 [facility] Comment on above: Performed By: #### 1 [id number], [id number] #### [facility] [address] [place] [address] Potassium [Moles/Vol] 3.0 mmol/L Low 3.5-5.3 [facility] Comment on above: Performed By: #### 1 [id number], [id number] #### [facility] [address] [place] [address] Sodium [Moles/Vol] 142 mmol/L Normal 135-145 [facility] Comment on above: Performed By: #### 1 [id number], [id number] #### [facility] [address] [place] [address] Magnesiumon 06-15-2023 Magnesium [Mass/Vol] 1.4 mg/dL Normal 1.3-2.4 [facility] Comment on above: Performed By: #### 1 [id number], [id number] #### [facility] [address] [place] [address] Monitor Recordon 06-15-2023 Monitor Record [id number]#1. 00TIFF Normal [facility] Monitor Record [id number]#1. 00TIFF Normal [facility] Monitor Record [id number]. 00TIFF Normal [facility] Monitor Record [id number]. 00TIFF Normal [facility] U Drug Screenon 06-15-2023 U Amph Scr Negative Invalid Interpretation Code [facility] Comment on above: Performed By: #### 2 [id number] #### [facility] [address] [place] [address] U Ketty Scr Negative Invalid Interpretation Code [facility] Comment on above: Performed By: #### 2 [id number] #### [facility] [address] [place] [address] U Benzodia Scr Negative Invalid Interpretation Code [facility] Comment on above: Performed By: #### 2 [id number] #### [facility] [address] [place] [address] U Cannab Scr Negative Invalid Interpretation Code [facility] Comment on above: Performed By: #### 2 [id number] #### [facility] [address] [place] [address] U Cocaine Scr Negative Invalid Interpretation Code [facility] Comment on above: Performed By: #### 2 [id number] #### [facility] [address] [place] [address] U Opiate Scr Negative Invalid Interpretation Code [facility] Comment on above: Performed By: #### 2 [id number] #### [facility] [address] [place] [address] U PCP Scr Negative Invalid Interpretation Code [facility] Comment on above: Performed By: #### 2 [id number] #### [facility] [address] [place] [address] UA With Cult Reflexon 2023 Bacteria LM Ql (Urine sed) TRACE Normal Trace [facility] Comment on above: Performed By: #### 1 [id number], [id number] #### [facility] [address] [place] [address] Bilirubin Ql (U) Negative Normal Negative [facility] Comment on above: Performed By: #### 1 [id number], [id number] #### [facility] [address] [place] [address] Clarity (U) SL CLOUDY Invalid Interpretation Code [facility] Comment on above: Performed By: #### 1 [id number], [id number] #### [facility] [address] [place] [address] Color (U) YELLOW Normal Yellow [facility] Comment on above: Performed By: #### 1 [id number], [id number] #### [facility] [address] [place] [address] Epithelial cells.squamous LM.HPF (Urine sed) [#/Area] 3-4 Normal 0-2 [facility] Comment on above: Performed By: #### 1 [id number], [id number] #### [facility] [address] [place] [address] Glucose Test strip (U) [Mass/Vol] Negative Normal Negative [facility] Comment on above: Performed By: #### 1 [id number], [id number] #### [facility] [address] [place] [address] Hemoglobin Ql (U) TRACE Abnormal Negative [facility] Comment on above: Performed By: #### 1 [id number], [id number] #### [facility] [address] [place] [address] Ketones (U) [Mass/Vol] Negative Normal Negative [facility] Comment on above: Performed By: #### 1 [id number], [id number] #### [facility] [address] [place] [address] [place].plasma/Lith ium.RBC (Bld) [Mass ratio] 0-3 Normal 0-3 [facility] Comment on above: Performed By: #### 1 [id number], [id number] #### [facility] [address] [place] [address] Nitrite Ql (U) Negative Normal Negative [facility] Comment on above: Performed By: #### 1 [id number], [id number] #### [facility] [address] [place] [address] pH (U) 6.5 [pH] Invalid Interpretation Code 5.0-9.0 [facility] Comment on above: Performed By: #### 1 [id number], [id number] #### [facility] [address] [place] [address] Protein (U) [Mass/Vol] TRACE Abnormal Negative [facility] Comment on above: Performed By: #### 1 [id number], [id number] #### [facility] [address] [place] [address] 43539 Specific gravity (U) [Rel density] 1.010 Invalid Interpretation Code 1.005-1.030 [facility] Comment on above: Performed By: #### 1 [id number], [id number] #### [facility] [address] [place] [address] Type of Urine collection method Catheter Normal [facility] Comment on above: Performed By: #### 1 [id number], [id number] #### [facility] [address] [place] [address] 94948 Urobilinogen Qn (U) 0.2 {Cuate'U}/dL Normal 0.0-1.0 [facility] Comment on above: Performed By: #### 1 [id number], [id number] #### [facility] [address] [place] [address] 08255 WBC Auto Ql (U) 2+ Abnormal Negative [facility] Comment on above: Performed By: #### 1 [id number], [id number] #### [facility] [address] [place] [address] 68747 WBC LM.HPF (Urine sed) [#/Area] 16-25 Abnormal 0-5 [facility] Comment on above: Performed By: #### 1 [id number], [id number] #### [facility] [address] [place] [address] 92720 Vitamin D 25 Hydroxyon 06-15 Vitamin D 25 Hydroxy 29.1 ng/mL Low 30.0-100.0 [facility] Comment on above: Performed By: #### 2 [id number] #### [facility] [address] [place] [address] 40120 Auto Diffon 06-14-2023 Basophils/100 WBC (Bld) 1.1 % Normal 0.0-2.0 [facility] Comment on above: Order Comment: Order Added by Discern Expert. Performed By: #### 1 [id number], [id number] #### [facility] [address] [place] [address] 86293 Basophils/Leukocyte s Auto (Bld) [Pure # fraction] 0.1 E9/L Normal 0.0-0.2 [facility] Comment on above: Order Comment: Order Added by Discern Expert. Performed By: #### 1 [id number], [id number] #### [facility] [address] [place] [address] 77781 Eosinophils/100 WBC (Bld) 4.9 % Normal 0.0-8.0 [facility] Comment on above: Order Comment: Order Added by Discern Expert. Performed By: #### 1 [id number], [id number] #### [facility] [address] [place] [address] 29318 Eosinophils/Leukocy megan Auto (Bld) [Pure # fraction] 0.3 E9/L Normal 0.0-0.5 [facility] Comment on above: Order Comment: Order Added by Discern Expert. Performed By: #### 1 [id number], [id number] #### [facility] [address] [place] [address] 47339 Lymphocytes/100 WBC (Bld) 23.8 % Normal 14.0-50.0 [facility] Comment on above: Order Comment: Order Added by Discern Expert. Performed By: #### 1 [id number], [id number] #### [facility] [address] [place] [address] 60150 Lymphocytes/Leukocy megan Auto (Bld) [Pure # fraction] 1.4 E9/L Normal 1.0-4.0 [facility] Comment on above: Order Comment: Order Added by Discern Expert. Performed By: #### 1 [id number], [id number] #### [facility] [address] [place] [address] 11548 Monocytes/100 WBC (Bld) 8.8 % Normal 4.0-14.0 [facility] Comment on above: Order Comment: Order Added by Discern Expert. Performed By: #### 1 [id number], [id number] #### [facility] [address] [place] [address] Monocytes/Leukocyte s Auto (Bld) [Pure # fraction] 0.5 E9/L Normal 0.2-1.0 [facility] Comment on above: Order Comment: Order Added by Discern Expert. Performed By: #### 1 [id number], [id number] #### [facility] [address] [place] [address] 32602 Neutrophils/100 WBC (Bld) 61.4 % Normal 36.0-75.0 [facility] Comment on above: Order Comment: Order Added by Discern Expert. Performed By: #### 1 [id number], [id number] #### [facility] [address] [place] [address] Neutrophils/Leukocy megan Auto (Bld) [Pure # fraction] 3.7 E9/L Normal 2.0-7.5 [facility] Comment on above: Order Comment: Order Added by Discern Expert. Performed By: #### 1 [id number], [id number] #### [facility] [address] [place] [address] BMPon 06-14-2023 Anion gap [Moles/Vol] 12 mmol/L Normal 6-16 [facility] Comment on above: Performed By: #### 2 [id number] #### [facility] [address] [place] [address] BUN/Creat Ratio 11 No Units Normal 10-20 [facility] Comment on above: Performed By: #### 2 [id number] #### [facility] [address] [place] [address] Calcium [Mass/Vol] 7.6 mg/dL Low 8.9-11.1 [facility] Comment on above: Performed By: #### 2 [id number] #### [facility] [address] [place] [address] Chloride [Moles/Vol] 105 mmol/L Normal 101-111 [facility] Comment on above: Performed By: #### 2 [id number] #### [facility] [address] [place] [address] CO2 [Moles/Vol] 31 mmol/L Normal 21-31 [facility] Comment on above: Performed By: #### 2 [id number] #### [facility] [address] [place] [address] Creatinine [Mass/Vol] 1.2 mg/dL Normal 0.5-1.3 [facility] Comment on above: Performed By: #### 2 [id number] #### [facility] [address] [place] [address] Glucose [Mass/Vol] 177 mg/dL Normal 55-199 [facility] Comment on above: Performed By: #### 2 [id number] #### [facility] [address] [place] [address] Potassium [Moles/Vol] 3.7 mmol/L Normal 3.5-5.3 [facility] Comment on above: Performed By: #### 2 [id number] #### [facility] [address] [place] [address] Sodium [Moles/Vol] 144 mmol/L Normal 135-145 [facility] Comment on above: Performed By: #### 2 [id number] #### [facility] [address] [place] [address] Urea nitrogen [Mass/Vol] 13 mg/dL Normal 5-21 [facility] Comment on above: Performed By: #### 2 [id number] #### [facility] [address] [place] [address] CBC w/ Auto Diffon 4 Erythrocyte distribution width (RBC) [Ratio] 13.2 % Normal 10.9-14.2 [facility] Comment on above: Performed By: #### 1 [id number], [id number] #### [facility] [address] [place] [address] Hematocrit (Bld) [Volume fraction] 39.5 % Normal 37.7-49.0 [facility] Comment on above: Performed By: #### 1 [id number], [id number] #### [facility] [address] [place] [address] Hemoglobin (Bld) [Mass/Vol] 13.1 g/dL Low 13.5-17.5 [facility] Comment on above: Performed By: #### 1 [id number], [id number] #### [facility] [address] [place] [address] MCH (RBC) [Entitic mass] 30.6 pg Normal 27.0-34.0 [facility] Comment on above: Performed By: #### 1 [id number], [id number] #### [facility] [address] [place] [address] 16676 MCHC (RBC) [Mass/Vol] 33.1 g/dL Normal 31.4-36.0 [facility] Comment on above: Performed By: #### 1 [id number], [id number] #### [facility] [address] [place] [address] 91602 MCV (RBC) [Entitic vol] 92.3 fL Normal 80.0-100.0 [facility] Comment on above: Performed By: #### 1 [id number], [id number] #### [facility] [address] [place] [address] 54076 Platelet mean volume (Bld) [Entitic vol] 7.9 fL Normal 6.4-10.8 [facility] Comment on above: Performed By: #### 1 [id number], [id number] #### [facility] [address] [place] [address] 00789 Platelets (Bld) [#/Vol] 235.0 E9/L Normal 150.0-500.0 [facility] Comment on above: Performed By: #### 1 [id number], [id number] #### [facility] [address] [place] [address] 63708 RBC (Bld) [#/Vol] 4.3 E12/L Normal 4.3-5.9 [facility] Comment on above: Performed By: #### 1 [id number], [id number] #### [facility] [address] [place] [address] 90161 WBC corrected for nucl RBC Auto (Bld) [#/Vol] 6.0 E9/L Normal 4.0-11.0 [facility] Comment on above: Performed By: #### 1 [id number], [id number] #### [facility] [address] [place] [address] 85234 CMPon 06-14-2023 Albumin [Mass/Vol] 3.9 g/dL Normal 3.3-5.0 [facility] Comment on above: Performed By: #### 1 [id number], [id number] #### [facility] [address] [place] [address] Albumin/Globulin [Mass ratio] 1.4 {ratio} Normal 1.1-2.2 [facility] Comment on above: Performed By: #### 1 [id number], [id number] #### [facility] [address] [place] [address] Alk Phos 90 Int._Unit/L Normal 21-98 [facility] Comment on above: Performed By: #### 1 [id number], [id number] #### [facility] [address] [place] [address] ALT 20 Int._Unit/L Normal 6-46 [facility] Comment on above: Performed By: #### 1 [id number], [id number] #### [facility] [address] [place] [address] Anion gap [Moles/Vol] 13 mmol/L Normal 6-16 [facility] Comment on above: Performed By: #### 1 [id number], [id number] #### [facility] [address] [place] [address] AST 15 Int._Unit/L Normal 5-43 [facility] Comment on above: Performed By: #### 1 [id number], [id number] #### [facility] [address] [place] [address] Bili Total 0.8 mg/dL Normal 0.0-1.1 [facility] Comment on above: Performed By: #### 1 [id number], [id number] #### [facility] [address] [place] [address] BUN/Creat Ratio 12 No Units Normal 10-20 [facility] Comment on above: Performed By: #### 1 [id number], [id number] #### [facility] [address] [place] [address] Calcium [Mass/Vol] 7.0 mg/dL Abnormal 8.9-11.1 [facility] Comment on above: Result Comment: Crit ical Result Verified by Repeat Analysis Critical Result S_CA.0 Called to and read back by: JÚNIOR BAÑUELOS at: 06/14/2023 12:03:03 by:AGUILAR Performed By: #### 1 [id number], [id number] #### [facility] [address] [place] [address] Chloride [Moles/Vol] 100 mmol/L Low 101-111 [facility] Comment on above: Performed By: #### 1 [id number], [id number] #### [facility] [address] [place] [address] CO2 [Moles/Vol] 31 mmol/L Normal 21-31 [facility] Comment on above: Performed By: #### 1 [id number], [id number] #### [facility] [address] [place] [address] Creatinine [Mass/Vol] 1.2 mg/dL Normal 0.5-1.3 [facility] Comment on above: Performed By: #### 1 [id number], [id number] #### [facility] [address] [place] [address] Globulin (S) [Mass/Vol] 2.8 g/dL Normal 1.4-4.0 [facility] Comment on above: Performed By: #### 1 [id number], [id number] #### [facility] [address] [place] [address] Glucose [Mass/Vol] 219 mg/dL High 55-199 [facility] Comment on above: Performed By: #### 1 [id number], [id number] #### [facility] [address] [place] [address] Potassium [Moles/Vol] 2.9 mmol/L Low 3.5-5.3 [facility] Comment on above: Performed By: #### 1 [id number], [id number] #### [facility] [address] [place] [address] Protein [Mass/Vol] 6.7 g/dL Normal 6.0-7.8 [facility] Comment on above: Performed By: #### 1 [id number], [id number] #### [facility] [address] [place] [address] Sodium [Moles/Vol] 141 mmol/L Normal 135-145 [facility] Comment on above: Performed By: #### 1 [id number], [id number] #### [facility] [address] [place] [address] Urea nitrogen [Mass/Vol] 14 mg/dL Normal 5-21 [facility] Comment on above: Performed By: #### 1 [id number], [id number] #### [facility] [address] [place] [address] Capillary Glucose POCon Glucose [Mass/Vol] 158 mg/dL High 55-99 [facility] Comment on above: Result Comment: Kingston gloria RN/ Performed By: #### 2 [id number] #### [facility] [address] [place] [address] Glucose [Mass/Vol] 165 mg/dL High 55-99 [facility] Comment on above: Result Comment: Michelle levar Meter Performed By: #### 2 [id number] #### [facility] [address] [place] [address] Consent for Treatmenton Consent for Treatment [id number] Normal [facility] ED Clinical Summaryon 2023 ED Clinical Summary [address] [address] ED Clinical Summary Person Information Name: ALICJA REYES [place] Age: 68 Years : 1955 Sex: Male Language: Tunisian PCP: Jose Grace MD Marital Status: Phone: [phone] Visit Id: Visit Reason: Dizziness; Abnormal diagnostic test; DR GRACE SENT HIM OVER Speciality: Acuity: 2 Enc Type: Observation Med Service: Medical Arrival: 06/14/2023 10:42:39 Discharge: LOS: 000 04:55 Checkin: 06/14/2023 10:42:39 Checkout: 06/14/2023 15:37:22 Dispo Type: Admitted as IP to this [facility] EVENTS: Event Name Event Status Request Date/Time Start Date/Time Complete Date/Time Arrive Complete 06/14/2023 10:42:39 06/14/2023 10:42:39 06/14/2023 10:42:39 Document Home Meds Complete 06/14/2023 10:42:39 06/14/2023 11:03:27 06/14/2023 11:03:27 Triage Complete 06/14/2023 10:42:39 06/14/2023 10:52:35 06/14/2023 10:52:35 Bed Assign Complete 06/14/2023 10:45:54 06/14/2023 10:45:54 06/14/2023 10:45:54 Dr Exam Complete 06/14/2023 10:45:54 06/14/2023 10:46:28 06/14/2023 10:46:28 RN Exam Complete 06/14/2023 10:45:54 06/14/2023 11:25:47 06/14/2023 11:25:47 Registration Complete 06/14/2023 10:46:28 06/14/2023 11:19:20 06/14/2023 11:19:20 Pending Labs Complete 06/14/2023 10:53:17 06/14/2023 12:03:11 Lab Complete 06/14/2023 10:53:17 06/14/2023 12:03:11 Meds Admin Request 06/14/2023 10:53:17 EKG Complete 06/14/2023 10:54:26 06/14/2023 11:03:22 Reg Complete Request 06/14/2023 11:19:20 Reg Bed Request Complete 06/14/2023 11:19:20 06/14/2023 11:19:20 06/14/2023 11:19:20 Pending Labs Complete 06/14/2023 11:20:29 06/14/2023 11:20:29 06/14/2023 12:03:11 Lab Complete 06/14/2023 11:20:29 06/14/2023 11:20:29 06/14/2023 12:03:11 Pending Labs Complete 06/14/2023 11:24:42 06/14/2023 11:24:42 06/14/2023 11:24:50 Lab Complete 06/14/2023 11:24:42 06/14/2023 11:24:42 06/14/2023 11:24:50 Pending Labs Complete 06/14/2023 11:32:01 06/14/2023 11:32:01 06/14/2023 11:32:02 Meds Admin Complete 06/14/2023 12:20:35 06/14/2023 12:51:03 Meds Admin Complete 06/14/2023 12:21:23 06/14/2023 12:51:03 Consult Request 06/14/2023 12:46:50 Meds Admin Complete 06/14/2023 12:46:55 06/14/2023 12:58:27 Hospitalist Consult Request 06/14/2023 12:46:55 Patient Care Request 06/14/2023 13:30:33 Patient Care Request 06/14/2023 13:30:33 MONTEZ Form Complete 06/14/2023 13:30:34 06/14/2023 13:51:19 Patient Care Request 06/14/2023 13:30:34 Patient Care Request 06/14/2023 13:30:34 Meds Admin Complete 06/14/2023 14:38:57 06/14/2023 14:50:21 Bed Request Request 06/14/2023 14:50:15 Reg Bed Request Request 06/14/2023 14:50:15 Admit Request 06/14/2023 14:50:15 Pending Labs Request 06/14/2023 14:50:51 Lab Request 06/14/2023 14:50:51 Urine Collect Request 06/14/2023 14:50:51 Pending Labs Request 06/14/2023 15:04:43 Lab Request 06/14/2023 15:04:43 Urine Collect Request 06/14/2023 15:04:43 Patient Care Request 06/14/2023 15:13:54 Meds Admin Request 06/14/2023 15:13:54 Meds Admin Request 06/14/2023 15:14:15 Patient Care Request 06/14/2023 15:14:15 Pending Labs Request 06/14/2023 15:14:48 Lab Request 06/14/2023 15:14:48 Meds Admin Request 06/14/2023 15:15:54 Meds Admin Request 06/14/2023 15:20:04 ADDRESS: [address] [place] [id number] PHYS DOC NOTES: MEDICAL INFORMATION: Prescriptions Given: Medications to Continue with No Changes Other Medications aspirin (aspirin 81 mg Oral EC Tab) 1 Tablets By Mouth every day. Refills: 0. atorvastatin (atorvastatin 40 mg Tab) 1 Tablets By Mouth every day. Refills: 1. glipiZIDE (glipiZIDE 5 mg Tab) 2 Tablets By Mouth 2 times a day. Refills: 1. hydrochlorothiazide-li sinopril (hydrochlorothiazide-l isinopril 12.5 mg-20 mg Tab) 1 Tablets By Mouth every day. Refills: 3. metformin (Glucophage XR 500 mg Tab-ER) 2 Tablets By Mouth 2 times a day. Refills: 1. Misc Prescription ([facility] Prescription) Soft click lancets Use to test blood sugars once a day Dx E11.9. Refills: 3. Misc Prescription ([facility] Prescription) Alcohol prep pads Use to test blood sugars daily Dx E11.9. Refills: 3. Misc Prescription ([facility] Prescription) One Touch Ultra 2 glucose meter kit Use to tests sugars daily E11.9. Refills: 0. Misc Prescription ([facility] Prescription) One touch ultra 2 test strips Use to tests sugars once a day Dx E11.9. Refills: 3. omeprazole (omeprazole 40 mg Cap-DR) 1 Capsules By Mouth every day. Refills: 0. tamsulosin (tamsulosin 0.4 mg Cap) 1 Capsules By Mouth once a day (in the evening). PATIENT EDUCATION INFORMATION: Instructions: Follow up: DIAGNOSIS: 1:Dizziness; 2:Hypokalemia; 3:Hypomagnesemia; 4:Hypocalcemia; 5:Urinary retention; 6:Type 2 diabetes mellitus with hypercholesterolemia; 7:Primary hypertension; 8:Hypercholesterolemia ; 9:H/O ETOH abuse; 10:History of nicotine use; 11:Obesity; Pure hypercholesterolemia, unspecified Normal [facility] ED Note-Physicianon 06-14-19 ED Note-Physician Basic Information Time Seen: Miles Little DO 06/14/2023 10:[address] Grace sent over for critical K+. pt. states he has felt dizzy and off balance for 2 months. chronic cath placed 1 week ago for urinary retention and has completed 3 different courses of antibiotics. History of Present Illness 59 male presents emergency department with abnormal lab values. Patient does state that he had seen his primary care physician yesterday had blood work done and then was sent to the emergency department today because of low potassium and low calcium levels. Patient is not sure what has caused this he did deny any diuretics but it does look like he takes a combination pill of lisinopril and hydrochlorothiazide. He reports no nausea vomiting or diarrhea he has had a little bit of dizziness lately. He has recently visited the emergency department in [place] had a urinary obstruction had catheter placed and was placed on Flomax as well. He is scheduled to see the urologist in 3 weeks from now. He did state at that time he was placed on some oral potassium replacement but despite this continues to have low potassium according to the blood work that was done yesterday. Patient denies any chest pain or difficulty breathing. No other aggravating or relieving factors no other associated symptoms no other prior treatments or complaints. Family: Reviewed and noncontributory Social: lives at home Review of systems negative unless otherwise specified in the HPI. Physical Exam Vitals & Measurements T: 36.5 ?C(Oral) HR: 104(Peripheral) RR: 18 BP: 153/98 SpO2: 99% HT: 175 cm WT: 102.3 kg BMI: 33.4 General: The patient appears well and in no apparent distress. Patient is resting comfortably on cart. Skin: Warm, dry, no pallor noted. Head: Normocephalic, atraumatic Neck: No JVD Eye: PERRLA, EOMI ENT: Moist mucus membranes Cardiovascular: Regular rate normal peripheral perfusion Respiratory: No respiratory distress no accessory muscle use no obvious audible wheezing Chest Wall: no deformity Musculoskeletal: normal ROM, no deformity, no swelling GI: Soft no obvious distention. No rebound or rigidity. No guarding. No tenderness. Neurological: A&O moves all extremities equal strength and symmetry Psychiatric: Cooperative and appropriate Medical Decision Making Workup in the ER has been reviewed and noted. Patient is found to have low potassium calcium and magnesium as well. He is treated here with IV replacement for all 3. Ultimately he will need to be admitted to the hospital as he was symptomatic with some associated dizziness as well. Case discussed with hospitalist for admission. Critical care time 30 minutes exclusive from separate billable procedures Assessment/Plan Dizziness (R42: Dizziness and giddiness) Hypocalcemia (E83.51: Hypocalcemia) Hypokalemia (E87.6: Hypokalemia) Hypomagnesemia (E83.42: Hypomagnesemia) Orders: calcium gluconate + Sodium Chloride 0.9% intravenous solution 100 mL, 2 gram = 100 mL, IV Piggyback, Once, Stop date 06/14/23 12:21:00 EST, STAT, Start date 06/14/23 12:21:00 EST, 100 mL/hr, Infuse over 60 minute(s), 06/14/23 12:21:00 EST magnesium sulfate + Generic Diluent 50 mL, 2 gram = 50 mL, IV Piggyback, Once, Stop date 06/14/23 12:20:00 EST, STAT, Start date 06/14/23 12:20:00 EST, 25 mL/hr, Infuse over 2 hour(s), 06/14/23 12:20:00 EST Sodium Chloride 0.9% with KCl 20 mEq/l 1,000 mL, 1,000 mL, IV, 500 mL/hr, STAT, Start date 06/14/23 10:53:00 EST, 2 hour(s), Total volume (mL): 1,000, 102.3 kg, 2.23, m2 Automated Diff CBC w/ Auto Diff Comprehensive Metabolic Panel eGFR Extra Blue Tube Extra SST Tube Lipase Level Magnesium Level Medications Administered Given NS w/ 20 KCl 1000 mL Soln-IV 1,000 mL, 1000 mL, IV Disposition Plan Discharge Prescription List Prescriptions No active prescription medications Follow-up No qualifying data available Problem List/Past Medical History Ongoing Alcohol abuse, in remission Diabetic nephropathy associated with type 2 diabetes mellitus Disorder of prostate Dizziness Edema Fatigue Gastroesophageal reflux disease without esophagitis Hematuria Hypercholesterolemia Hypokalemia Major depressive disorder, recurrent, moderate Morbid obesity Primary hypertension Prostate cancer screening Right flank pain SOB (shortness of breath) on exertion Type 2 diabetes mellitus with hypercholesterolemia Urinary retention Historical No qualifying data Procedure/Surgical History Arthroscopy, back surgery, Carpal tunnel release, hand and elbow surgery, Hand tendon repaired. Medications Inpatient NS w/ 20 KCl 1000 mL Soln-IV 1,000 mL, 1000 mL, IV Home aspirin 81 mg Oral EC Tab, 81 mg= 1 tab(s), Oral, Daily atorvastatin 40 mg Tab, 40 mg= 1 tab(s), Oral, Daily, 1 refills glipiZIDE 5 mg Tab, 10 mg= 2 tab(s), Oral, BID, 1 refills Glucophage XR 500 mg Tab-ER, 1000 mg= 2 tab(s), Oral, BID, 1 refills hydrochlorothiazide-li s (more content not included)... Normal [facility] Comment on above: Result Comment: Elec tronically Signed By: Miles Little DO\.br\Date and Time Signed: 06/14/23 13:22 EST ED Patient Education Noteon 06-14-2023 ED Patient Education Note Normal [facility] ED Patient Summaryon 024 ED Patient Summary [place] [id number] Patient Discharge Instructions Person Information Name: ALICJA REYES Age: 68 Years Arrival Date: 06/14/2023 10:42:39 Discharge Diagnosis: 1:Dizziness; 2:Hypokalemia; 3:Hypomagnesemia; 4:Hypocalcemia; 5:Urinary retention; 6:Type 2 diabetes mellitus with hypercholesterolemia; 7:Primary hypertension; 8:Hypercholesterolemia ; 9:H/O ETOH abuse; 10:History of nicotine use; 11:Obesity; Pure hypercholesterolemia, unspecified Primary Care Physician: Jose Grace MD Provider Information Primary Provider: Miles Little DO Advanced Rivet Sorter:None The exam and treatment you received in the Emergency Department were for an urgent problem and are not intended as complete care. It is important that you follow up with a doctor, nurse practitioner, or physician?s hearing aid assistant for ongoing care. If your symptoms become worse or you do not improve as expected and you are unable to reach your usual health care provider, you should return to the Emergency Department. We are available 24 hours a day. ALICJA REYES has been given the following list of patient education materials, prescriptions and follow-up instructions: Follow-up Instructions: In the event that this physician does not participate in your insurance network, please consult with your insurance company to find a nearby participating provider. Patient Education Materials: A MESSAGE TO ALL PATIENTS REGARDING OPIOIDS PRESCRIPTION OPIOIDS: WHAT YOU NEED TO KNOW Prescription opioids can be used to help relieve ldsshbpd-fi-wuedik pain and are often prescribed following a surgery or injury, or for certain health conditions. These medications can be an important part of the treatment but also come with serious risks. It is important to work with your healthcare provider to make sure you are getting the safest, most effective care. WHAT ARE THE RISKS AND SIDE EFFECTS OF OPIOID USE? Prescription opioids carry serious risks of addiction and overdose, especially with prolonged use. An opioid overdose, often marked by slowed breathing, can cause sudden . The use of prescription opioids can have a number of side effects as well, even when taken as directed: ? Tolerance?meaning you might need to take more of the medication for the same pain relief ? Physical dependence?meaning you have symptoms of withdrawal when a medication is stopped ? Increased sensitivity to pain ? Constipation ? Nausea, vomiting, and dry mouth ? Sleepiness and dizziness ? Confusion ? Depression ? Low levels of testosterone that can result in lower sex drive, energy, and strength ? Itching and sweating RISKS ARE GREATER WITH: ? History of drug misuse, substance use disorder, or overdose ? Mental health conditions (such as depression or anxiety) ? Sleep apnea ? Older age (65 years and older) ? Avoid alcohol while taking prescription opioids. Also, unless specifically advised by your health care provider, medications to avoid include: ? Benzodiazepines (such as Xanax or Valium) ? Muscle relaxants (such as Soma or Flexeril) ? Hypnotics (such as Ambien or Lunesta) ? Other prescription opioids KNOW YOUR OPTIONS Talk to your health care provider about ways to manage your pain that don?t involve prescription opioids. Some of these options may actually work better and have fewer risks and side effects. Options may include: ? Pain relievers such as acetaminophen, ibuprofen, and naproxen ? Some medication that are also used for depression or seizures ? Physical therapy and exercise ? Cognitive behavioral therapy, a psychological, goal-directed approach, in which patients learn how to modify physical, behavioral, and emotional triggers of pain and stress. IF YOU ARE PRESCRIBED OPIOIDS FOR PAIN: ? Never take opioids in greater amounts or more often than prescribed. ? Follow up with your primary health care provider. o Work together to create a plan on how to manage your pain. o Talk about ways to help manage your pain that don?t involve prescription opioids. o Talk about any and all concerns and side effects. ? Help prevent misuse and abuse o Never sell or share prescription opioids. o Never use another person?s prescription opioids. ? Store prescription opioids in a secure place and out of reach of others (this may include visitors, children, friends, and family). ? Safely dispose of unused prescription opioids: Find your community drug take-back program or your pharmacy mail-back program, or flush them down the toilet, following guidance from the Food and Drug Administration (www.fda.gov/Drugs/Res ourcesForYou). ? Visit www.cdc.gov/drugoverdo se to learn about the risks of opioids abuse and overdose. ? If you believe you may be struggling with addiction, tell your health group care worker and a (more content not included)... Normal [facility] Ethanolon 06-14-2023 Ethanol Lvl <10 High <=7 [facility] Comment on above: Performed By: #### 2 [id number] #### [facility] [address] [place] [address] Ferritinon 06-14-2023 Ferritin Lvl 179 ng/mL Normal 24-336 [facility] Comment on above: Performed By: #### 1 [id number], [id number] #### [facility] [address] [place] [address] Folateon 06-14-2023 Folate Lvl 19.6 ng/mL Normal >=6.7 [facility] Comment on above: Performed By: #### 1 [id number], [id number] #### [facility] [address] [place] [address] Ironon 06-14-2023 Iron 75 microgram/dL Normal 35-153 [facility] Comment on above: Performed By: #### 1 [id number], [id number] #### [facility] [address] [place] [address] LDHon 06-14-2023 LDH 326 Int._Unit/L High 93-218 [facility] Comment on above: Performed By: #### 1 [id number] #### [facility] [address] [place] [address] Lipase Levelon 06-14-2023 Lipase Lvl 31 unit/L Normal 13-58 [facility] Comment on above: Performed By: #### 1 [id number], [id number] #### [facility] [address] [place] [address] Magnesiumon 06-14-2023 Magnesium [Mass/Vol] 1.4 mg/dL Normal 1.3-2.4 [facility] Comment on above: Performed By: #### 1 [id number], [id number] #### [facility] [address] [place] [address] Magnesium [Mass/Vol] mg/dL Abnormal 1.3-2.4 [facility] Comment on above: Result Comment: Crit ical Result Verified by Repeat Analysis Critical Result S_MG:<0.5 Called to and read back by: JÚNIOR BAÑUELOS at: 06/14/2023 12:03:03 by:AGUILAR Performed By: #### 1 [id number], [id number] #### [facility] [address] [place] [address] Message from Medicareon Message from Medicare [id number]#1. 00TIFF Normal [facility] Monitor Recordon 06-14-2023 Monitor Record [id number]#1. 00TIFF Normal [facility] Monitor Record [id number]#1. 00TIFF Normal [facility] Retic Counton 06-14-2023 Reticulocytes/100 RBC (Bld) 1.1 % Normal 0.5-1.5 [facility] Comment on above: Performed By: #### 1 [id number], [id number] #### [facility] [address] [place] [address] TIBC Calculatedon 06-14-2023 TIBC 269 microgram/dL Normal 250-400 [facility] Comment on above: Performed By: #### 1 [id number], [id number] #### [facility] [address] [place] [address] Transferrin [Mass/Vol] 192 mg/dL Low 200-370 [facility] Comment on above: Performed By: #### 1 [id number], [id number] #### [facility] [address] [place] [address] TSH With T4fr Reflexon 06-14 TSH Qn 1.25 m[IU]/L Normal 0.34-5.60 [facility] Comment on above: Performed By: #### 1 [id number], [id number] #### [facility] [address] [place] [address] Vit B12on 06-14-2023 Cobalamin (Vitamin B12) [Mass/Vol] 257 pg/mL Normal 50-1500 [facility] Comment on above: Performed By: #### 1 [id number], [id number] #### [facility] [address] [place] [address] eGFRon 06-14-2023 GFR/1.73 sq M.predicted among non-blacks MDRD (S/P/Bld) [Vol rate/Area] mL/min/{1.73_m2} Normal >=59 [facility] Comment on above: Order Comment: Order added by Discern Expert. Performed By: #### 2 [id number] #### [facility] [address] [place] [address] GFR/1.73 sq M.predicted among non-blacks MDRD (S/P/Bld) [Vol rate/Area] mL/min/{1.73_m2} Normal >=59 [facility] Comment on above: Order Comment: Order added by Discern Expert. Performed By: #### 1 [id number], [id number] #### [facility] [address] [place] [address] Ambulatory Visit Summaryon 0 06-13-2023 Ambulatory Visit Summary ALICJA REYES :1955 Visit Date:06/13/2023 Ambulatory Visit Instructions Your Diagnosis Type 2 diabetes mellitus with hypercholesterolemia Urinary retention Pure hypercholesterolemia, unspecified Hypokalemia BMI 33.0-33.9,adult Class 1 obesity due to excess calories in adult Former smoker Alcohol abuse, in remission Dizziness SOB (shortness of breath) on exertion Morbid obesity Your Care Team Attending Physician - Jose Grace MD Primary Care Physician - Jose Grace MD This Is Your Medications List aspirin (aspirin 81 mg Oral EC Tab) atorvastatin (atorvastatin 40 mg Tab) glipiZIDE (glipiZIDE 5 mg Tab) hydrochlorothiazide-li sinopril (hydrochlorothiazide-l isinopril 12.5 mg-20 mg Tab) metformin (Glucophage XR 500 mg Tab-ER) omeprazole (omeprazole 40 mg Cap-DR) Contact prescribing physician if questions or concerns Misc Prescription (Misc DME Prescription) Misc Prescription (Misc DME Prescription) Misc Prescription (Misc DME Prescription) Misc Prescription (Misc DME Prescription) [Image Removed: STOP]Stop taking these medications Misc Prescription (Freestyle Alejandra 2 Flash Glucose Monitoring 14 Day System ([place])) Misc Prescription (Freestyle Alejandra Flash 2 Glucose Monitoring 14 Day System (Sensor)) Procedures Performed Arthroscopy, back surgery, Carpal tunnel release, hand and elbow surgery, Hand tendon repaired. Discharge Vitals Temperature (Temporal Artery) 36.6 ?C Heart Rate (Peripheral) 74 Respiratory Rate 16 Blood Pressure 122/72 Height 174.5 cm Height 69 in Weight 102.3 kg Weight 225.06 lb BMI 33.6 What to do next Scheduled Follow-Up Appointments Tuesday 10:15 AM EST With: Rajan REYNOLDS, Kristel Bolden Where: [facility] Invalid Interpretation Code [address] [place] [address]- \.br\ Tuesday 2:00 PM EST \.br\ With: Yfn REYNOLDS, Troy Santamaria\.br\ Where: [facility]\.br\ Tuesday 2:00 PM EST \.br\ With:\.br\ Where: [facility] BMPon 06-13-2023 Anion gap [Moles/Vol] 15 mmol/L Normal 6-16 [facility] Comment on above: Performed By: #### 2 [id number], [id number] #### [facility] [address] [place] [address] BUN/Creat Ratio 12 No Units Normal 10-20 [facility] Comment on above: Performed By: #### 2 [id number], [id number] #### [facility] [address] [place] [address] Calcium [Mass/Vol] 7.0 mg/dL Abnormal 8.9-11.1 [facility] Comment on above: Result Comment: Crit ical Result Verified by Repeat Analysis Critical Result S_CA.0 Called to and read back by: [facility] at: 06/13/2023 18:59:55 by:ELI LAWSON Performed By: #### 2 [id number], [id number] #### [facility] [address] [place] [address] Chloride [Moles/Vol] 100 mmol/L Low 101-111 [facility] Comment on above: Performed By: #### 2 [id number], [id number] #### [facility] [address] [place] [address] CO2 [Moles/Vol] 27 mmol/L Normal 21-31 [facility] Comment on above: Performed By: #### 2 [id number], [id number] #### [facility] [address] [place] [address] Creatinine [Mass/Vol] 1.3 mg/dL Normal 0.5-1.3 [facility] Comment on above: Performed By: #### 2 [id number], [id number] #### [facility] [address] [place] [address] Glucose [Mass/Vol] 219 mg/dL High 55-199 [facility] Comment on above: Performed By: #### 2 [id number], [id number] #### [facility] [address] [place] [address] Potassium [Moles/Vol] 2.7 mmol/L Abnormal 3.5-5.3 [facility] Comment on above: Result Comment: Crit ical Result Verified by Repeat Analysis Critical Result S_K:2.7 Called to and read back by: MANAGER LIFE ELI at: 06/13/2023 18:59:55 by:ELI LAWSON Performed By: #### 2 [id number], [id number] #### [facility] [address] [place] [address] Sodium [Moles/Vol] 139 mmol/L Normal 135-145 [facility] Comment on above: Performed By: #### 2 [id number], [id number] #### [facility] [address] [place] [address] Urea nitrogen [Mass/Vol] 16 mg/dL Normal 5-21 [facility] Comment on above: Performed By: #### 2 [id number], [id number] #### [facility] [address] [place] [address] CHEMISTRYOrdered By: SYSTEM SYSTEM on 06-13-2023 Anion gap [Moles/Vol] 15 mmol/L Normal 6 - 16 mEq/L Remisol Chem Calcium [Mass/Vol] 7.0 mg/dL Invalid Interpretation Code 8.9 - 11.1 mg/dL Rem[facility] Comment on above: Result Comment: Crit ical Result Verified by Repeat Analysis Critical Result S_CA.0 Called to and read back by: MANAGER LIFE ELI at: 06/13/2023 18:59:55 by:ELI LAWSON Chloride [Moles/Vol] 100 mmol/L Low 101 - 111 mmol/L Remisol Chem CO2 [Moles/Vol] 27 mmol/L Normal 21 - 31 mmol/L Remis ol Chem Creatinine [Mass/Vol] 1.3 mg/dL Normal 0.5 - 1.3 mg/dL Remisol Chem eGFR 59 mL/min/1.73 m2 Normal >=59mL/min /1.73 m2 Remisol Chem Glucose [Mass/Vol] 219 mg/dL High 55 - 199 mg/dL Re misol Chem Potassium [Moles/Vol] 2.7 mmol/L Invalid Interpretation Code 3.5 - 5.3 mmol/L Remisol Chem Comment on above: Result Comment: Crit ical Result Verified by Repeat Analysis Critical Result S_K:2.7 Called to and read back by: MANAGER LIFE ELI at: 06/13/2023 18:59:55 by:ELI LAWSON Sodium [Moles/Vol] 139 mmol/L Normal 135 - 145 mmol/L Remisol Chem Urea nitrogen [Mass/Vol] 16 mg/dL Normal 5 - 21 mg/dL Remisol Chem Urea nitrogen/Creatinine [Mass ratio] 12 mg/mg Normal 10 - 20 Remisol Chem Family Medicine Office/Clini c Noteon 06-13-2023 Family Medicine Office/Clinic Note HPI Staff Alicja is a 68 year old male presenting for 2 week follow up blood sugar MILLER increase glipizide was to get labs and never came for them but ended up at ER Been to ER twice since last here and has indwelling catheter Do you have any of the following symptoms? Foot Exam: none Eye Exam: due Last A1C: Hgb A1C %: 9.6 % High (05/16/23 08:05:00) Statin: atorvastatin 20mg Patient is quite unsteady when on the scale, bd sugar 172 this am at home phq-4 phq9-17 flu: UTD questions/concerns: He canceled his EKG at [facility] since he was in the ER and had one there. Was told had over extended bladder and holding urine and that was causing his UTI, so has a catheter in, see urologist on 06/29 for follow up History of Present Illness The patient presents for evaluation of multiple medical concerns. He has been feeling dizzy for the last 2 months. He has been nauseated and dizzy. He has been drinking a lot of water over the last month, which has helped with the dizziness. His dizziness is intermittent. He is on glipizide 5 mg 2 tablets a day and metformin 2 tablets daily. He runs out of breath easily. He has to stand for a minute to catch his breath after going down 3 steps. He denies any chest pain. He quit smoking in 2005. He has not drunk alcohol in the last 2 months. He has lost 25 pounds. He is on atorvastatin. He has taken aspirin in the past. He was given potassium powder in the ER. He has potassium pills at home, but he is not taking them regularly. He went to the ER and they assumed it was UTI. They found out that his bladder was overextended and he was having some issues with retention and that is why he is continuing to have recurrent UTIs. They put a Chong in. He had severe pain when they put the catheter in. He was told it was related to his prostate. He has been doing fingerstick for his A1c. His blood sugar this morning was 172. He is on glipizide 5 mg 2 tablets a day and metformin 2 tablets daily. He has taken aspirin in the past. Review of Systems PHQ Score Initial Depression Screen Score: 4 SCORE Detailed Depression Screen Score: 13 Total Depression Screen Score: 17 Physical Exam Vitals & Measurements T: 36.6 ?C(Temporal Artery) HR: 74(Peripheral) RR: 16 BP: 122/72 SpO2: 99% HT: 69 in HT: 174.5 cm WT: 102.3 kg WT: 225.06 lb BMI: 33.6 General: alert, no acute distress ENMT: oral mucosa moist, Cardiovascular: regular rate and rhythm, normal peripheral perfusion Respiratory: Lungs CTA, respirations non labored Extremities: no deformity, no trauma Neurological: oriented x 4, LOC appropriate for age, CN II-XII intact, motor strength equal & normal bilaterally, speech normal Abdomen: Soft, Nontender, Non-distended, + BS Assessment/Plan 1. Type 2 diabetes mellitus with hypercholesterolemia (E11.69: Type 2 diabetes mellitus with other specified complication) - Increase your Metformin. - Will recheck a1c in 2 months - Adjust meds based on those labs Ordered: Basic Metabolic Panel Body Mass Index (BMI) documented 3008F Current tobacco non-user 1036F Depression Screening Positive 3354F Influenza immunization administered or previously received 4274F Most recent diastolic blood pressure <80 mm Hg 3078F Patient screen for fall risk: no falls in last year or 1 fall with no injury in last year 1101F Systolic BP <130 mm Hg (Most Recent) 3074F 2. Urinary retention (R33.9: Retention of urine, unspecified) - Chong in place - Following up with Urology for urodynamics Ordered: Basic Metabolic Panel 3. Pure hypercholesterolemia, unspecified (E78.00: Pure hypercholesterolemia, unspecified) - Increase in statin today. Ordered: Basic Metabolic Panel 4. Hypokalemia (E87.6: Hypokalemia) - Will recheck toay. Ordered: Basic Metabolic Panel 5. BMI 33.0-33.9,adult (Z68.33: Body mass index [BMI] 33.0-33.9, adult) - BMI education given Ordered: Basic Metabolic Panel Body Mass Index (BMI) documented 3008F Current tobacco non-user 1036F Depression Screening Positive 3354F Influenza immunization administered or previously received 4274F Most recent diastolic blood pressure <80 mm Hg 3078F Patient screen for fall risk: no falls in last year or 1 fall with no injury in last year 1101F Systolic BP <130 mm Hg (Most Recent) 3074F 6. Class 1 obesity due to excess calories in adult (E66.09: Other obesity due to excess calories) - Diet and exercise advised Ordered: Basic Metabolic Panel Body Mass Index (BMI) documented 3008F Current tobacco non-user 1036F Depression Screening Positive 3354F Influenza immunization administered or previously received 4274F Most recent diastolic blood pressure <80 mm Hg 3078F Patient screen for fall risk: no falls in last year or 1 fall with no injury in last year 1101F Systolic BP <130 mm Hg (Most Recent) 3074F 7. Former smoker (Z87.891: Personal history of nicotine dependence) - Please continue to not smoke Ordered: Basic (more content not included)... Normal [facility] Comment on above: Result Comment: Elec tronically Signed By: Ruiz REYNOLDS, Jose Cordoba.br\Date and Time Signed: 06/13/23 08:32 EST Physician Referralon 024 Physician Referral [id number]. 00TIFF Normal [facility] Physician Referral [id number]#1. 00TIFF Normal [facility] Pre-Visit Planningon 024 Pre-Visit Planning - From: Valarie Solis To: Jose Grace MD; Sent: 06/10/2023 09:48:10 EST Subject: Pre-Visit Planning Due Date/Time: 06/10/2023 09:47:00 EST Caller Name: ALICJA REYES; Caller Number: Sana , Nicole Good morning Dr. Grace. During a pre-visit planning chart review, I noted the following documentation in the medical record: Current Problem List: Alcohol abuse and Morbid obesity. 05/26/2023 Office Visit Note: PHQ-9 Score =14. Based on your medical judgment, can you please clarify which, if any, of the following conditions are present? I can update the Chronic Problem List with your response if you would like. Major Depressive Disorder, Single Episode ? Major depressive disorder, single episode, mild ? Major depressive disorder, single episode, moderate ? Major depressive disorder, single episode, severe without mention of psychotic behavior ? Major depressive disorder, single episode, severe specified as with psychotic behavior ? Major depressive disorder, single episode, in partial remission ? Major depressive disorder, single episode in full remission Major Depressive Disorder, Recurrent ? Major depressive disorder, recurrent, mild ? Major depressive disorder, recurrent, moderate ? Major depressive disorder, recurrent, severe without mention of psychotic behavior ? Major depressive disorder, recurrent, severe specified as with psychotic behavior ? Major depressive disorder, recurrent, in partial remission ? Major depressive disorder, recurrent, in full remission -Other (Please Specify): In responding to this request, please exercise your independent professional judgement. The fact that a question is asked does not imply that any particular answer is desired or expected. If you have any questions, please feel free to contact me at extension [phone]. Thank you and have a great weekend! Valarie Solis LPN From: Jose Grace MD To: Valarie Solis; Sent: 06/13/2023 11:05:51 EST Subject: RE: Pre-Visit Planning Caller Name: ALICJA REYES; Caller Number: Sana , M Shivam Song missed this. From: Valarie Solis To: oJse Grace MD; Sent: 06/13/2023 11:43:00 EST Subject: RE: Pre-Visit Planning Due Date/Time: 06/13/2023 11:42:00 EST Caller Name: ALICJA REYES; Caller Number: Sana , M No worries. Would you like to add any diagnosis to address during future Office Visits? From: Jose Grace MD To: Valarie Solis; Sent: 06/13/2023 12:18:33 EST Subject: RE: Pre-Visit Planning Caller Name: ALICJA REYES; Caller Number: Sana , Nicole Major depressive disorder, recurrent, moderate Normal [address] [facility] eGFRon 06-13-2023 eGFR 59 mL/min/1.73 m2 Normal >=59 [facility] Comment on above: Order Comment: Order added by Discern Expert. Performed By: #### 2 [id number], [id number] #### [facility] [address] [place] [address] ED Note-Physicianon 06-09-19 24 ED Note-Physician [id number]#1.0 0TIFF Normal [facility] ED Note-Physicianon 06-08-19 24 ED Note-Physician [id number]#1.0 0TIFF Normal [facility] RAD - CT Reporton 06-08-2023 RAD - CT Report [id number]#1.0 0TIFF Normal [facility] RAD - MISCon 06-08-2023 RAD - MIS [id number]#1.0 0TIFF Normal [facility] C Urineon 05-29-2023 Bacteria identified Cx Nom (U) Microbiology PROCEDURE: Urine Culture [R1] SOURCE: U CleanCatch BODY SITE: COLLECTED DATE/TIME: 05/26/2023 09:50 EST RECEIVED DATE/TIME: 05/26/2023 17:44 EST START DATE/TIME: 05/26/2023 17:44 EST FREE TEXT SOURCE: Ruiz REYNOLDS, Jose Grace MD, Jose Thompson FINAL REPORTS Final Report [...] Locations R1: This test was performed at: [facility], [address] [place] [address], [id number]- , , [facility] Comment on above: Performed By: #### 2 [id number] #### [facility] [address] [place] [address] BMPon 05-27-2023 Anion gap [Moles/Vol] 13 mmol/L Normal 6-16 [facility] Comment on above: Performed By: #### 2 [id number] #### [facility] [address] [place] [address] BUN/Creat Ratio 17 No Units Normal 10-20 [facility] Comment on above: Performed By: #### 2 [id number] #### [facility] [address] [place] [address] Calcium [Mass/Vol] 8.6 mg/dL Low 8.9-11.1 [facility] Comment on above: Performed By: #### 2 [id number] #### [facility] [address] [place] [address] Chloride [Moles/Vol] 97 mmol/L Low 101-111 [facility] Comment on above: Performed By: #### 2 [id number] #### [facility] [address] [place] [address] CO2 [Moles/Vol] 33 mmol/L High 21-31 [facility] Comment on above: Performed By: #### 2 [id number] #### [facility] [address], [place] [address] Creatinine [Mass/Vol] 1.5 mg/dL High 0.5-1.3 [facility] Comment on above: Performed By: #### 2 [id number] #### [facility] [address] [place] [address] Glucose [Mass/Vol] 201 mg/dL High 55-199 [facility] Comment on above: Performed By: #### 2 [id number] #### [facility] [address] [place] [address] Potassium [Moles/Vol] 3.3 mmol/L Low 3.5-5.3 [facility] Comment on above: Performed By: #### 2 [id number] #### [facility] [address] [place] [address] Sodium [Moles/Vol] 140 mmol/L Normal 135-145 [facility] Comment on above: Performed By: #### 2 [id number] #### [facility] [address] [place] [address] Urea nitrogen [Mass/Vol] 25 mg/dL High 5-21 [facility] Comment on above: Performed By: #### 2 [id number] #### [facility] [address] [place] [address] CHEMISTRYOrdered By: SYSTEM SYSTEM on 05-27-2023 Anion [...] Soc ial Workeron 05-27-2023 Interdisciplinary Note - Stunt Double This SW reached out to patient to follow up with her regarding a positive depression screen that patient received at her most recent PCP appointment on May 26, 2023 with Jose Grace MD. Patient's total depression screening score was a 14 at that appointment. SW wanted to reach out to offered supportive services if needed. Patient did not answer; therefore, a voicemail was left. SW will remain available as needed. Normal [facility] eGFRon 05-27-2023 eGFR 50 mL/min/1.73 m2 Low >=59 [facility] Comment on above: Order Comment: Order added by Discern Expert. Performed By: #### 2 [id number] #### [facility] [address] [place] [address] Ambulatory Visit Summaryon 1 07-27-2022 Ambulatory Visit Summary ALICJA REYES :1955 Visit Date:05/26/2023 Ambulatory Visit Instructions Your Diagnosis Type 2 diabetes mellitus with hypercholesterolemia Morbid obesity Primary hypertension Alcohol abuse Pure hypercholesterolemia, unspecified UTI symptoms BMI 35.0-35.9,adult Class 1 obesity due to excess calories in adult Former smoker Your Care Team Attending Physician - Jose Grace MD Primary Care Physician - Jose Grace MD This Is Your Medications List Misc Prescription (Freestyle Alejandra 2 Flash Glucose Monitoring 14 Day System (Live Oak)) Misc Prescription (Freestyle Alejandra Flash 2 Glucose [...] Services Tuesday 8:00 AM EST With: Jose Grace MD Where: [facility] Invalid Interpretation Code [address] [place] [address]- \.br\ Tuesday 2:00 PM EST \.br\ With:\.br\ Where: [facility] Medicine Office/Clini c Noteon 05-26-2023 Family Medicine Office/Clinic Note HPI Staff Alicja is a 68 year old male presenting for lab review recent A1C: Hgb A1C %: 9.6 % High (05/16/23 08:05:00) K+ ordered 05/16/23 ER Tuesday [facility] blood sugar 600 had vomiting Given insulin through an IV flu: UTD questions/concerns: his glipizide needs sent to [facility] with the correct dose, his current refill [...] USE WITH METER ONCE DAILY. DX E11.9, [id number], Supply, 174.5, cm, 05/26/23 9:14:00 EST, [...] Misc Prescriptio (more content not included)... Normal [facility] Comment on above: Result Comment: Elec tronically Signed By: Ruiz REYNOLDS, Jose Thopmson\.br\Date and Time Signed: 05/26/23 09:43 EST Patient Educationon 05-26-20 Patient Education Nutrition BMI for Adults What [...] numbers. This can be done either in [place]ian (U.S[place] or metric measurements. Note that charts and online BMI calculators are available to help you find your BMI quickly and easily without having to do these calculations yourself. To calculate your BMI in [place]ian ([place] measurements: 1. Measure your weight in [...] for Disease Control and Prevention: www.cdc.gov ? [place] Heart Association: www.heart.org ? National Heart, Lung, and Blood [place]: www.nhlbi.nih.gov Summary ? Body mass index (BMI) is a number that is calculated from a person's weight and height. ? BMI may help estimate how much of a person's weight is composed of fat. BMI can help identify those who may be at higher risk for certain medical problems. ? BMI can be measured using Tunisian measurements or metric measurements. ? BMI charts are used to identify whether you are underweight, normal weight, overweight, or obese. This information is not intended to replace advice given to you by your health care provider. Make sure you discuss any questions you have with your health care provider. Document Revised: 02/13/2020 Document Reviewed: 12/21/2019 [employer] Patient Education ? 2022 [employer] [facility] ED Note-Physicianon 05-25-20 23 ED Note-Physician [id number] 20 [id number] 0TIFF [facility] C Urineon 05-18-2023 Bacteria identified Cx Nom (U) Microbiology PROCEDURE: Urine Culture [R1] SOURCE: U CleanCatch BODY SITE: COLLECTED DATE/TIME: 05/16/2023 08:00 EST RECEIVED DATE/TIME: 05/16/2023 17:35 EST START DATE/TIME: 05/16/2023 17:35 EST FREE TEXT SOURCE: Ruiz REYNOLDS, Jose Grace MD, Jose Thompson FINAL REPORTS Final Report [...] Locations R1: This test was performed at: [facility], [address] [place] [address], [address] [place] [address], Normal [facility] Comment on above: Performed By: #### 2 [id number] ####[facility] [address] [place] [address] Ambulatory Visit Summaryon 1 07-17-2022 Ambulatory Visit Summary ALICJA REYES :1955 Visit Date:05/16/2023 Ambulatory Visit Instructions Your Diagnosis Type 2 diabetes mellitus without complication, without long-term current use of insulin Diabetic nephropathy associated with type 2 diabetes mellitus Type 2 diabetes mellitus with hypercholesterolemia Urinary frequency UTI symptoms Edema Fatigue Alcohol abuse Tests Performed Urnls Dip Stick Auto w/o Microscopy POC 56983 Your Care Team Attending Physician - Jose Grace MD Primary Care Physician - Jose Grace MD This Is Your Medications List cephalexin (Keflex 250 mg Cap) glipiZIDE (glipiZIDE 5 mg Tab) Contact prescribing physician if questions or concerns Misc Prescription ([place] Alejandra 2 Flash Glucose Monitoring 14 Day System (Live Oak)) Misc Prescription (Freestyle Alejandra Flash 2 Glucose [...] Follow-Up Appointments Tuesday 9:00 AM EST With: TIFFANY REYNOLDS, Manolo Jo Where: [facility] Invalid Interpretation Code [address] [place] [address]- \.br\ Tuesday 2:40 PM EST \.br\ With: Ruiz REYNOLDS, Jose Thompson\.br\ Where: [facility] Family Medicine [facility] CHEMISTRYOrdered By: SYSTEM SYSTEM on 05-16-2023 [...] 16 mmol/L Normal 6 - 16 mEq/L [facility] Remisol AST [Catalytic activity/Vol] 19 [iU]/d Normal 5 - 43 Int._Unit/L [facility] Remisol Bilirubin [Mass/Vol] 1.1 mg/dL Normal 0.0 - 1.1 mg/dL [facility] Remisol Calcium [Mass/Vol] 8.6 mg/dL Low 8.9 - 11.1 mg/dL [facility] Remisol Chloride [Moles/Vol] 94 mmol/L Low 101 - 111 mmol/L [facility] Remisol CO2 [Moles/Vol] 31 mmol/L Normal 21 - 31 mmol/L [facility] Remisol Creatinine [Mass/Vol] 1.3 mg/dL Normal 0.5 - 1.3 mg/dL [facility] Remisol GFR/1.73 sq M.predicted among non-blacks MDRD (S/P/Bld) [Vol rate/Area] 59 mL/min/1.73 m2 Normal >=59mL/min/1.73 m2 [facility] Chem S Comment on above: Interpretive Data: C hronic kidney disease could be indicated at eGFR's of less than 60 mL/min/1.73m2. Kidney failure is indicated at less than 15 mL/min/1.73m2. Globulin (S) [Mass/Vol] 4.1 g/dL High 1.4 - 4.0 gm/dL [facility] Remisol Glucose [Mass/Vol] 337 mg/dL High 55 - 199 mg/dL [facility] Remisol Comment on above: Interpretive Data: I f this glucose result represents a fasting glucose, interpretation should refer to the following reference range: 55-99 mg/dL Potassium [Moles/Vol] 2.9 mmol/L Low 3.5 - 5.3 mmol/L [facility] Remisol Protein [Mass/Vol] 7.5 g/dL Normal 6.0 - 7.8 gm/dL [facility] Remisol Sodium [Moles/Vol] 138 mmol/L Normal 135 - 145 mmol/L [facility] Remisol Urea nitrogen [Mass/Vol] 16 mg/dL Normal 5 - 21 mg/dL [facility] Remisol Urea nitrogen/Creatinine [Mass ratio] 12 mg/mg Normal 10 - 20 [facility] Remisol CHEMISTRYOrdered By: Isidro mejia on 05-16-2023 HbA1c (Bld) [Mass fraction] 9.6 % High <=5.9% [facility] ChemAutoSS CMPon 05-16-2023 Albumin [Mass/Vol] 3.4 g/dL Normal 3.3-5.0 [facility] Comment on above: Performed By: #### 1 [id number], [id number], [id number] ####[facility] [address] [place] [address] Albumin/Globulin (S) [Mass conc ratio] 0.8 Low 1.1-2.2 [facility] Comment on above: Performed By: #### 1 [id number], [id number], [id number] ####[facility] [address] [place] [address] ALP [Catalytic activity/Vol] 80 Int._Unit/L Normal 21-98 [facility] Comment on above: Performed By: #### 1 [id number], [id number], [id number] ####[address] [place] [address] ALT No additional P-5'-P [Catalytic activity/Vol] 19 Int._Unit/L Normal 6-46 [facility] Comment on above: Performed By: #### 1 [id number], [id number], [id number] ####[address] [address] Anion gap [Moles/Vol] 16 mmol/L Normal 6-16 [facility] Comment on above: Performed By: #### 1 [id number], [id number], [id number] ####[address] [address] AST [Catalytic activity/Vol] 19 Int._Unit/L Normal 5-43 [facility] Comment on above: Performed By: #### 1 [id number], 8030246, [id number] ####[address] [place] [address] Bilirubin [Mass/Vol] 1.1 mg/dL Normal 0.0-1.1 [facility] Comment on above: Performed By: #### 1 1523937, 1448459, [id number] ####[facility] [address] [place] [address] Calcium [Mass/Vol] 8.6 mg/dL Low 8.9-11.1 [facility] Comment on above: Performed By: #### 1 0179894, 6017663, [id number] ####[facility] [address] [place] [address] Chloride [Moles/Vol] 94 mmol/L Low 101-111 [facility] Comment on above: Performed By: #### 1 2241964, 3462293, [id number] ####[facility] [address] [place] [address] CO2 [Moles/Vol] 31 mmol/L Normal 21-31 [facility] Comment on above: Performed By: #### 1 3839538, 2463590, [id number] ####[facility] [address] [place] [address] Creatinine [Mass/Vol] 1.3 mg/dL Normal 0.5-1.3 [facility] Comment on above: Performed By: #### 1 3892862, 5179202, [id number] ####[facility] [address] [place] [address] Globulin (S) [Mass/Vol] 4.1 g/dL High 1.4-4.0 [facility] Comment on above: Performed By: #### 1 [id number], 1849488, [id number] ####[facility] [address] [place] [address] Glucose [Mass/Vol] 337 mg/dL High 55-199 [facility] Comment on above: Result Comment: If t his glucose result represents a fasting glucose, interpretation should refer to the following reference range: 55-99 mg/dL Performed By: #### 1 [id number], [id number], [id number] ####[facility] [address] [place] [address] Potassium [Moles/Vol] 2.9 mmol/L Low 3.5-5.3 [facility] Comment on above: Performed By: #### 1 3242775, 2640620, [id number] ####[facility] [address] [place] [address] Protein [Mass/Vol] 7.5 g/dL Normal 6.0-7.8 [facility] Comment on above: Performed By: #### 1 5381733, 5622211, [id number] ####[facility] [address] [place] [address] Sodium [Moles/Vol] 138 mmol/L Normal 135-145 [facility] Comment on above: Performed By: #### 1 4756801, 6554403, [id number] ####[facility] [address] [place] [address] Urea nitrogen [Mass/Vol] 16 mg/dL Normal 5-21 [facility] Comment on above: Performed By: #### 1 0359985, 8729459, [id number] ####[facility] [address] [place] [address] Urea nitrogen/Creatinine [Mass ratio] 12 No Units Normal 10-20 [facility] Comment on above: Performed By: #### 1 0807353, 1503655, [id number] ####[facility] [address] [place] [address] Family Medicine Office/Clini c Noteon 05-16-2023 Family Medicine Office/Clinic Note HPI Staff Alicja is a 68 year old male presenting for 3 month follow up DM Do you have any of the following symptoms? Foot Exam: UTD Eye Exam: due Last A1C: Hgb A1C %: 8.4 % High (01/20/23 08:46:00) Statin: atorvastatin 20mg flu: UTD questions/concerns: need the glipizide and omeprazole refilled to [facility], you changed the glipizide to bid and [...] mellitus without complications) ? Patient did not picker / packer his medication despite being at [facility]. ?We will resend today. ?Will recheck A1c [...] day(s), # 28 cap(s), Refills(s) 0, Pharmacy: [facility], 174.5, cm, 05/16/23 7:26:00 EST, Height/Length Dosing, 113.4, kg, 05/16/23 7:26:00 EST, Weight Dosing glipiZIDE, 5 mg = 1 tab(s), Oral, BID, # 90 tab(s), Refills(s) 1, Pharmacy: [facility], 174.5, cm, 05/16/23 7:26:00 EST, Height/Length [...] 2 Flash Glucose Monitoring 14 Day System (Live Oak), See Instructions Freestyle Alejandra Flash 2 Glucose Monitoring 14 Day System (Sensor), See Instructions glipiZIDE 5 mg Tab, 5 mg= 1 tab(s), Oral, BI (more content not included)... Normal [facility] Comment on above: Result Comment: Elec tronically Signed By: Ruiz REYNOLDS, Jose Cordoba.br\Date and Time Signed: 05/16/23 07:53 EST [id number] 05-16-2023 HbA1c (Bld) [Mass fraction] 9.6 % High <=5.9 [facility] Comment on above: Performed By: #### 1 [id number], [id number], [id number] ####[facility] [address] [place] [address] Pre-Visit Planningon 023 Pre-Visit Planning - From: Valarie oSlis To: Jose Grace MD; Sent: 05/13/2023 14:50:08 EST Subject: Pre-Visit Planning Due Date/Time: 05/13/2023 14:50:00 EST Caller Name: ALICJA REYES; Caller Number: Sana , M Nh Dr. Grace. During a pre-visit planning chart review, I [...] a great weekend! Valarie Solis LPN From: Jose Grace MD To: Valarie Solis; Sent: 05/16/2023 11:31:40 EST Subject: RE: Pre-Visit Planning Caller Name: ALICJA REYES; Caller Number: Sana , M Ok to add Morbid Obesity Normal [address] [facility] eGFRon 05-16-2023 GFR/1.73 sq M.predicted among non-blacks MDRD (S/P/Bld) [Vol rate/Area] 59 mL/min/1.73 m2 Normal >=59 [facility] Comment on above: Order Comment: Order added by Discern Expert. Result Comment: Registered Nurse Float Pool sher kidney disease could be indicated at eGFR's of less than 60 mL/min/1.73m2. Kidney failure is indicated at less than 15 mL/min/1.73m2. Performed By: #### 1 [id number], [id number], [id number] ####[facility] [address] [place] [address] C Urineon 04-06-2023 Bacteria identified Cx Nom (U) Microbiology PROCEDURE: Urine Culture [R1] SOURCE: U CleanCatch BODY SITE: COLLECTED DATE/TIME: 04/04/2023 13:03 EDT RECEIVED DATE/TIME: 04/04/2023 17:28 EDT START DATE/TIME: 04/04/2023 17:29 EDT FREE TEXT SOURCE: Christy Crawford, Christy Montes FINAL REPORTS Final Report [] Verified Date/Time: [...] This test was performed at: [facility], [address] [place] [address], [address]- , , [facility] Comment on above: Performed By: #### 2 [id number] #### [facility] [address] [place] [address] RAD - MISCon 04-05-2023 RAD - MISC [id number] 00 [id number]#[id number] 0TIFF [facility] Ambulatory Visit Summaryon 1 Ambulatory Visit Summary ALICJA REYES :1955 Visit Date:04/04/2023 Ambulatory Visit Instructions Your Diagnosis Urinary frequency Hematuria Right flank pain Prostate cancer screening BMI 38.0-38.9,adult Former smoker Tests Performed Urnls Dip Stick Non-Auto w/o Micrscpy POC 14389 Your Care Team Attending Physician - Christy Crawford Primary Care Physician - Jose Grace MD This Is Your Medications List Misc Prescription (Freestyle Alejandra 2 Flash Glucose Monitoring 14 Day System (Live Oak)) Misc Prescription (Freestyle Alejandra Flash 2 Glucose [...] Appointments Tuesday 7:20 AM EST With: Jose Grace MD Where: [facility] Invalid Interpretation Code [address] [place] [address]- \.br\ Tuesday 2:40 PM EST \.br\ With: Jose Grace MD\.br\ Where: [facility] Ambulatory Visit Summary ALICJA REYES :1955 Visit Date:04/04/2023 Ambulatory Visit Instructions Your Diagnosis Prostate cancer screening Urinary frequency Hematuria Right flank pain BMI 38.0-38.9,adult Former smoker Your Care Team Attending Physician - Christy Crawford Primary Care Physician - Jose Grace MD This Is Your Medications List Misc Prescription (Freestyle Alejandra 2 Flash Glucose Monitoring 14 Day System (Live Oak)) Misc Prescription (Freestyle Alejandra Flash 2 Glucose [...] Appointments Tuesday 7:20 AM EST With: Jose Grace MD Where: [facility] Invalid Interpretation Code [address] [place] [address]- \.br\ Tuesday 2:40 PM EST \.br\ With: Jose Grace MD\.br\ Where: [facility] CHEMISTRYOrdered By: SYSTEM SYSTEM on 04-04-2023 Prostate specific Ag [Mass/Vol] 6.1 ng/mL High 0.1 - 3.5 ng/mL [facility] Remisol Comment on above: Interpretive Data: T he concentration of PSA determined by different manufacturers can vary due to differences in assay methods and reagent specificity. Values obtained from different assay methods cannot be used interchangeably. The methodology used for this result was chemiluminescence using [employer] Access Hybritech PSA reagent. Family Medicine Office/Clini c Noteon 04-04-2023 [facility] Medicine Office/Clinic Note HPI Staff Alicja is a 67 year male presenting for [...] to see urologist doesn't want to see lanie/tiffany. History of Present Illness pt presents today [...] all questions answered. RTC as needed Ordered: [facility] Internal Ambulatory Referral PSA Screen, Total 2. Hematuria (R31.9: Hematuria, unspecified) Large amount of blood noted on U/S strip Ordered: [facility] Internal Ambulatory Referral PSA Screen, Total 3. Right flank pain (R10.9: Unspecified abdominal pain) order for KUB given and faxed to [facility] Ordered: [facility] Internal Ambulatory Referral 4. Prostate cancer screening (Z12.5: Encounter for screening for malignant neoplasm of prostate) PSA drawn in office today Ordered: [facility] Internal Ambulatory Referral PSA Screen, Total 5. BMI 38.0-38.9,adult (Z68.38: Body mass index [BMI] 38.0-38.9, adult) BMI education complete Ordered: [facility] Internal Ambulatory Referral PSA Screen, Total 6. [...] 2 Flash Glucose Monitoring 14 Day System (Live Oak), See Instructions Freestyle Alejandra Flash 2 Glucose [...] Risk, 06 (more content not included)... Normal [facility] Comment on above: Result Comment: Elec tronically Signed By: Christy Crawford\.oliver\Date and Time Signed: 04/04/23 09:48 EDT PSA Screen, Totalon 04-04-20 23 Prostate specific Ag [Mass/Vol] 6.1 ng/mL High 0.1-3.5 [facility] Comment on above: Result Comment: The concentration of PSA determined by different manufacturers can vary due to differences in assay methods and reagent specificity. Values obtained from different assay methods cannot be used interchangeably. The methodology used for this result was chemiluminescence using [employer] Access Hybritech PSA reagent. Performed By: #### 2 [id number] #### [facility] [address] [place] [address] Physician Referralon 023 Physician Referral [id number] 01 [id number]. 00TIFF Normal [facility] Ambulatory Visit Summaryon 0 02-14-2023 Ambulatory Visit Summary ALICJA REYES :1955 Visit Date:02/14/2023 Ambulatory Visit Instructions Your Diagnosis Type 2 diabetes mellitus without complication, without long-term current use of insulin Diabetic nephropathy associated with type 2 diabetes mellitus Primary hypertension Gastroesophageal reflux disease without esophagitis BMI 38.0-38.9,adult Class 1 obesity due to excess calories in adult Your Care Team Attending Physician - Joes Grace MD Primary Care Physician - Jose Grace MD This Is Your Medications List Misc Prescription (Freestyle Alejandra 2 Flash Glucose Monitoring 14 Day System (Live Oak)) Misc Prescription (Freestyle Alejandra Flash 2 Glucose [...] Appointments Tuesday 7:20 AM EST With: Jose Grace MD Where: [facility] Invalid Interpretation Code [address] [place] [address]- \.br\ Tuesday 2:40 PM EST \.br\ With: Jose Grace MD\.br\ Where: [facility] Medicine Office/Clini c Noteon 02-14-2023 Family Medicine Office/Clinic Note HPI Staff patient presents to follow up for labs, bd sugar elevated Do you have any of the following symptoms? Foot Exam: UTD Eye Exam: due Last A1C: Hgb A1C %: 8.4 % High (01/20/23 08:46:00) Statin: atorvastatin 20mg FLu vaccine offered, pt prefers to get at [facility] with his History of Present Illness - [...] 2 Flash Glucose Monitoring 14 Day System (Live Oak), See Instructions, 1 EA, 0, Freestyle Alejandra Flash Glucose Monitoring 14 Day System (Live Oak), [id number], Supply, 174.5, cm, 02/14/23 7:27:00 [...] 2 Flash Glucose Monitoring 14 Day System (Live Oak), See Instructions, 1 EA, 0, Freestyle Alejandra Flash Glucose Monitoring 14 Day System (Live Oak), [id number], Supply, 174.5, cm, 02/14/23 7:27:00 [...] 2 Flash Glucose Monitoring 14 Day System (Live Oak), See Instructions, 1 EA, 0, Freestyle Alejandra Flash Glucose Monitoring 14 Day System (Live Oak), [id number], Supply, 174.5, cm, 02/14/23 7:27:00 [...] have to monitor on the Ozempic. Ordered: Misc Prescription, Freestyle Alejandra 2 (more content not included)... Normal [facility] Comment on above: Result Comment: Elec tronically Signed By: Ruiz REYNOLDS, Jose Cordoba.br\Date and Time Signed: 02/14/23 07:47 EDT Patient [...] oz glass (more content not included)... Normal [facility] Ambulatory Visit Summaryon 0 01-20-2023 Ambulatory Visit Summary ALICJA REYES :1955 Visit Date:01/20/2023 Ambulatory Visit Instructions Your Diagnosis Type 2 diabetes mellitus without complication, without long-term current use of insulin Hypercholesterolemia Gastroesophageal reflux disease without esophagitis BMI 38.0-38.9,adult Class 1 obesity due to excess calories in adult Smokeless tobacco use Alcohol abuse Your Care Team Attending Physician - Jose Grace MD Primary Care Physician - Jose Grace MD This Is Your Medications List atorvastatin [...] Appointments Tuesday 2:00 PM EST With: [facility] [id number] \.br\ Medications\.br\ What How Much When Instructions\.br\ [...] without long-term current use of insulin\.br\ \.br\ [facility] Ambulatory Visit Summary ALICJA REYES :1955 Visit Date:01/20/2023 Ambulatory Visit Instructions Your Diagnosis Type 2 diabetes mellitus without complication, without long-term current use of insulin Hypercholesterolemia Gastroesophageal reflux disease without esophagitis BMI 38.0-38.9,adult Class 1 obesity due to excess calories in adult Smokeless tobacco use Your Care Team Attending Physician - Jose Grace MD Primary Care Physician - Jose Grace MD This Is Your Medications List atorvastatin [...] Appointments Tuesday 2:00 PM EST With: Where: [facility] Normal [address] [place] [address]- \.br\ Medications\.br\ What How Much When Instructions\.br\ [...] without long-term current use of insulin\.br\ \.br\ [facility] Auto Diffon 01-20-2023 Basophils/100 WBC (Bld) 0.6 % Normal 0.0-2.0 [facility] Comment on above: Order Comment: Order Added by Discern Expert. Performed By: #### 2 017381, [id number], 9347511, 4262440, 332783484, 1590007 ####[facility] [address] [place] [address] Basophils/Leukocyte s Auto (Bld) [Pure # fraction] 0.0 E9/L Normal 0.0-0.2 [facility] Comment on above: Order Comment: Order Added by Discern Expert. Performed By: #### 2 810359, 01372312, 5906260, 2605465, 103887287, 6707196 ####[address] [address] Eosinophils/100 WBC (Bld) 1.8 % Normal 0.0-8.0 [facility] Comment on above: Order Comment: Order Added by Discern Expert. Performed By: #### 2 188452, 89331728, 5783644, 9884656, 917380106, 7444909 ####[address] [address] Eosinophils/Leukocy megan Auto (Bld) [Pure # fraction] 0.1 E9/L Normal 0.0-0.5 [facility] Comment on above: Order Comment: Order Added by Discern Expert. Performed By: #### 2 678292, 48275878, 1132720, 1925312, 454300080, 5926147 ####[address] [address] Lymphocytes/100 WBC (Bld) 19.3 % Normal 14.0-50.0 [facility] Comment on above: Order Comment: Order Added by Discern Expert. Performed By: #### 2 844150, 32910673, 5994185, 4717616, 759659219, 3640458 ####[address] [address] Lymphocytes/Leukocy megan Auto (Bld) [Pure # fraction] 1.1 E9/L Normal 1.0-4.0 [facility] Comment on above: Order Comment: Order Added by Discern Expert. Performed By: #### 2 088717, 03759570, 6603442, 0794915, 311702629, 6253632 ####[address] [address] Monocytes/100 WBC (Bld) 13.0 % Normal 4.0-14.0 [facility] Comment on above: Order Comment: Order Added by Discern Expert. Performed By: #### 2 720867, 14407689, 3292848, 5179967, 451093158, 6721564 ####[address] [address] Monocytes/Leukocyte s Auto (Bld) [Pure # fraction] 0.7 E9/L Normal 0.2-1.0 [facility] Comment on above: Order Comment: Order Added by Discern Expert. Performed By: #### 2 450296, 99981841, 4437575, 9134806, 510277444, 3721853 ####[address] [place] [address] Neutrophils/100 WBC (Bld) 65.3 % Normal 36.0-75.0 [facility] Comment on above: Order Comment: Order Added by Discern Expert. Performed By: #### 2 255226, 91073454, 3156745, 5696785, 117043651, 6205012 ####[address] [address] Neutrophils/Leukocy megan Auto (Bld) [Pure # fraction] 3.6 E9/L Normal 2.0-7.5 [facility] Comment on above: Order Comment: Order Added by Discern Expert. Performed By: #### 2 345231, 94367378, 0012817, 7155904, 319781397, 5846356 ####[address] [address] CBC w/ Auto Diffon Erythrocyte distribution width (RBC) [Ratio] 12.8 % Normal 10.9-14.2 [facility] Comment on above: Performed By: #### 2 321079, 80335302, 8077489, 0917299, 235421613, 2366929 ####[facility] [address] [place] [address] Hematocrit (Bld) [Volume fraction] 36.6 % Low 37.7-49.0 [facility] Comment on above: Performed By: #### 2 109495, 62745373, 8882752, 7123812, 922160278, 1632046 ####[address] [place] [address] Hemoglobin (Bld) [Mass/Vol] 12.8 g/dL Low 13.5-17.5 [facility] Comment on above: Performed By: #### 2 898019, 38120077, 4364138, 5590343, 768997591, 9822541 ####[address] [address] MCH (RBC) [Entitic mass] 33.7 pg Normal 27.0-34.0 [facility] Comment on above: Performed By: #### 2 090002, 44067182, 0578275, 3831000, 561999313, 8080502 ####[address] [address] MCHC (RBC) [Mass/Vol] 34.9 g/dL Normal 31.4-36.0 [facility] Comment on above: Performed By: #### 2 028677, 41343487, 6712169, 3490250, 064811712, 6394771 ####[address] [address] MCV (RBC) [Entitic vol] 96.4 fL Normal 80.0-100.0 [facility] Comment on above: Performed By: #### 2 634125, 47906042, 6816110, 7163058, 829608141, 5423259 ####[address] [address] Platelet mean volume (Bld) [Entitic vol] 7.6 fL Normal 6.4-10.8 [facility] Comment on above: Performed By: #### 2 637019, 60293603, 0824353, 8609134, 660602482, 5798430 ####[address] [address] Platelets (Bld) [#/Vol] 284.0 E9/L Normal 150.0-500.0 [facility] Comment on above: Performed By: #### 2 332304, 69291925, 8646411, 5319328, 149409484, 7194797 ####[address] [place] [address] RBC (Bld) [#/Vol] 3.8 E12/L Low 4.3-5.9 [facility] Comment on above: Performed By: #### 2 220731, 83677597, 3596250, 3716941, 433067679, 3158630 ####[facility] [address] [place] [address] WBC corrected for nucl RBC Auto (Bld) [#/Vol] 5.5 E9/L Normal 4.0-11.0 [facility] Comment on above: Performed By: #### 2 001044, 67745735, 7137623, 9179726, 902431287, 4292350 ####[facility] [address] [place] [address] CHEMISTRYOrdered By: SYSTEM SYSTEM on 01-20-2023 Albumin [...] 1.2 mg/dL Normal 0.5 - 1.3 mg/dL [facility] Remisol GFR/1.73 sq M.predicted among non-blacks MDRD (S/P/Bld) [Vol rate/Area] 66 mL/min/1.73 m2 Normal >=59mL/min/1.73 m2 [facility] S Globulin (S) [Mass/Vol] 3.6 g/dL Normal 1.4 - 4.0 gm/dL [facility] Glucose [Mass/Vol] 314 mg/dL High 55 - 199 mg/dL [facility] Potassium [Moles/Vol] 4.2 mmol/L Normal 3.5 - 5.3 mmol/L [facility] Protein [Mass/Vol] 7.4 g/dL Normal 6.0 - 7.8 gm/dL [facility] Remisol Sodium [Moles/Vol] 136 mmol/L Normal 135 - 145 mmol/L [facility]isol Triglyceride [Mass/Vol] 116 mg/dL Normal <=149mg/dL [facility] Urea nitrogen [Mass/Vol] 15 mg/dL Normal 5 - 21 mg/dL [facility] Remisol Urea nitrogen/Creatinine [Mass ratio] 12 mg/mg Normal 10 - 20 [facility] CHEMISTRYOrdered By: Isidro mejia on 01-20-2023 Albumin DL <= 20 mg/L (U) [Mass/Vol] 35.7 microgram/mL High 0.0 - 19.0 mcg/mL [facility] Remisol Albumin Elph (U) [Mass fraction] 9.6 mg/dL Invalid Interpretation Code [facility] Remisol Creatinine (U) [Mass/Vol] 43.6 mg/dL Invalid Interpretation Code [facility] Remisol U Prot/Creat Ratio 220.20 mg/gm Cr High 0.00 - 200.00 mg/gm Cr [facility] Remisol CHEMISTRYOrdered By: Noe landeros on 01-20-2023 HbA1c (Bld) [Mass fraction] 8.4 % High <=5.9% [facility] ChemAutoSS CMPon 01-20-2023 Albumin [Mass/Vol] 3.8 g/dL Normal 3.3-5.0 [facility] Comment on above: Performed By: #### 2 377826, 00994048, 9480487, 3005508, 597962625, 0799884 ####[facility] [address] [place] [address] Albumin/Globulin (S) [Mass conc ratio] 1.1 Normal 1.1-2.2 [facility] Comment on above: Performed By: #### 2 594014, 37062072, 0146125, 6563248, 865765190, 5020969 ####[facility] [address] [place] [address] ALP [Catalytic activity/Vol] 95 Int._Unit/L Normal 21-98 [facility] Comment on above: Performed By: #### 2 226683, 24042114, 0656364, 5985633, 167364970, 6965895 ####[facility] [address] [place] [address] ALT No additional P-5'-P [Catalytic activity/Vol] 20 Int._Unit/L Normal 6-46 [facility] Comment on above: Performed By: #### 2 077107, 70223801, 3924950, 7549516, 377704025, 4751577 ####[facility] [address] [place] [address] Anion gap [Moles/Vol] 15 mmol/L Normal 6-16 [facility] Comment on above: Performed By: #### 2 988999, 18469644, 2657127, 7309868, 934594363, 3665118 ####[facility] [address] [place] [address] AST [Catalytic activity/Vol] 21 Int._Unit/L Normal 5-43 [facility] Comment on above: Performed By: #### 2 293606, 96174061, 0261803, 0186941, 358266071, 1092569 ####[facility] [address] [place] [address] Bilirubin [Mass/Vol] 0.8 mg/dL Normal 0.0-1.1 [facility] Comment on above: Performed By: #### 2 724355, 28364424, 4181890, 5322354, 501802151, 9003424 ####[facility] [address] [place] [address] Calcium [Mass/Vol] 8.6 mg/dL Low 8.9-11.1 [facility] Comment on above: Performed By: #### 2 108942, 68885256, 3871960, 2877953, 722094130, 0442784 ####[address] [place] [address] Chloride [Moles/Vol] 98 mmol/L Low 101-111 [facility] Comment on above: Performed By: #### 2 256239, 49883774, 1255365, 6888915, 644897899, 6336897 ####[facility] [address] [place] [address] CO2 [Moles/Vol] 27 mmol/L Normal 21-31 [facility] Comment on above: Performed By: #### 2 620467, 33139571, 1076696, 1853744, 544478898, 9393732 ####[facility] [address] [place] [address] Creatinine [Mass/Vol] 1.2 mg/dL Normal 0.5-1.3 [facility] Comment on above: Performed By: #### 2 136929, 87652442, 3967329, 2204511, 133369716, 1467731 ####[facility] [address] [place] [address] Globulin (S) [Mass/Vol] 3.6 g/dL Normal 1.4-4.0 [facility] Comment on above: Performed By: #### 2 471264, 16576553, 1514231, 1403524, 839255280, 4488268 ####[facility] [address] [place] [address] Glucose [Mass/Vol] 314 mg/dL High 55-199 [facility] Comment on above: Result Comment: If t his glucose result represents a fasting glucose, interpretation should refer to the following reference range: 55-99 mg/dL Performed By: #### 2 708982, 83357512, 0118057, 4176772, 157948653, 4067033 ####[facility] [address] [place] [address] Potassium [Moles/Vol] 4.2 mmol/L Normal 3.5-5.3 [facility] Comment on above: Performed By: #### 2 569707, 34737260, 2365185, 1825924, 907656355, 9520997 ####[facility] [address] [place] [address] Protein [Mass/Vol] 7.4 g/dL Normal 6.0-7.8 [facility] Comment on above: Performed By: #### 2 874608, 81382750, 2092610, 1175022, 482551577, 0548860 ####[facility] [address] [place] [address] Sodium [Moles/Vol] 136 mmol/L Normal 135-145 [facility] Comment on above: Performed By: #### 2 891501, 28659140, 0346635, 6789405, 211804944, 7233605 ####[facility] [address] [place] [address] Urea nitrogen [Mass/Vol] 15 mg/dL Normal 5-21 [facility] Comment on above: Performed By: #### 2 266432, 89787578, 6094952, 8231959, 840752126, 0728322 ####[facility] [address] [place] [address] Urea nitrogen/Creatinine [Mass ratio] 12 No Units Normal 10-20 [facility] Comment on above: Performed By: #### 2 199915, 65614382, 1610253, 1927279, 204494086, 1982040 ####[facility] [address] [place] [address] Family Medicine Office/Clini c Noteon 01-20-2023 Family Medicine Office/Clinic Note Chief Complaint establish care, DM and HTN HPI Staff Alicja is a 67 years old male here [...] Comprehensive Metabolic Panel HgbA1c Lab Specimen Collect 39098 Lipid Panel Microalbumin Level Urine U Protein/Creat Ratio 2. Hypercholesterolemia (E78.00: Pure hypercholesterolemia, unspecified) - Will check labs - Continue on a statin Ordered: CBC w/ Auto Diff Comprehensive Metabolic Panel HgbA1c Lab Specimen Collect 84594 Lipid Panel Microalbumin Level Urine U Protein/Creat Ratio 3. Gastroesophageal reflux disease without esophagitis (K21.9: Gastro-esophageal reflux disease without esophagitis) - Continue on Ordered: CBC w/ Auto Diff Comprehensive Metabolic Panel HgbA1c Lab Specimen Collect [address] Lipid Panel Microalbumin Level Urine U Protein/Creat [...] Daily, # 90 cap(s), Refills(s) 0, Pharmacy: [facility], 174.5, cm, 01/20/23 8:03:00 EDT, Height/Length Dosing, 115.9, kg, 01/20/23 8:03:00 EDT, Weight Dosing Follow-up No qualifying data available Problem List/Past Medical History Ongoing Alcohol abuse Disorder of prostate Gastroesophageal reflux disease without eso (more content not included)... Normal [facility] Comment on above: Result Comment: Elec tronically Signed By: Ruiz REYNOLDS, Jose Thompson\.br\Date and Time Signed: 01/20/23 09:02 EDT HEMATOLOGYOrdered By: SYSTEM SYSTEM on 01-20-2023 Basophils/100 WBC (Bld) 0.6 % Normal 0.0 - 2.0 % [facility] HemeAutoSS Basophils/Leukocyte s Auto (Bld) [Pure # [...] 3.6 E9/L Normal 2.0 - 7.5 E9/L FT HemeAutoSS HEMATOLOGYOrdered By: Makenzie Martinez on 01-20-2023 [...] 284.0 E9/L Normal 150.0 - 500.0 E9/L [facility] HemeAutoSS RBC (Bld) [#/Vol] 3.8 E12/L Low 4.3 - 5.9 E12/L [facility] HemeAutoSS WBC corrected for nucl RBC Auto (Bld) [#/Vol] 5.5 E9/L Normal 4.0 - 11.0 E9/L FT HemeAutoSS [id number] 01-20-2023 HbA1c (Bld) [Mass fraction] 8.4 % High <=5.9 [facility] Comment on above: Performed By: #### 2 [id number] #### [facility] [address] [place] [address] Lipid Panelon 01-20-2023 Cholesterol [Mass/Vol] 162 mg/dL Normal 120-200 [facility] Comment on above: Performed By: #### 2 07092759 #### [facility] [address] [place] [address] Cholesterol in HDL [Mass/Vol] 40 mg/dL Invalid Interpretation Code [facility] Comment on above: Result Comment: HDL > or equal to 60 mg/dL: Low cardiovascular risk HDL < 40 mg/dL : High cardiovascular risk Performed By: #### 2 54402935 #### [facility] [address] [place] [address] Cholesterol in LDL [Mass/Vol] 96 mg/dL Normal <=129 [facility] Comment on above: Performed By: #### 2 12163288 #### [facility] [address] [place] [address] Cholesterol in VLDL [Mass/Vol] 23 mg/dL Normal 7-40 [facility] Comment on above: Performed By: #### 2 17084380 #### [facility] [address] [place] [address] Triglyceride [Mass/Vol] 116 mg/dL Normal <=149 [facility] Comment on above: Performed By: #### 2 25851609 #### [facility] [address] [place] [address] U Microalbon 01-20-2023 Albumin DL <= 20 mg/L (U) [Mass/Vol] 35.7 microgram/mL High 0.0-19.0 [facility] Comment on above: Performed By: #### 1 9534855, [id number] #### [facility] [address] [place] [address] U Protein/Creat Ratioon 01-04 Albumin Elph (U) [Mass fraction] 9.6 mg/dL Invalid Interpretation Code [facility] Comment on above: Result Comment: The reference range and other method performance specifications have not been established for this test; results should be integrated into the clinical context for interpretation. Performed By: #### 1 2060874, [id number] ####[facility] [address] [place] [address] Creatinine (U) [Mass/Vol] 43.6 mg/dL Invalid Interpretation Code [facility] Comment on above: Result Comment: The reference range and other method performance specifications have not been established for this test; results should be integrated into the clinical context for interpretation. Performed By: #### 1 6392074, [id number] ####[address] [place] [address] U Prot/Creat Ratio 220.20 mg/gm Cr High .00-200.00 [facility] Comment on above: Performed By: #### 1 7889294, [id number] ####[address] [place] [address] eGFRon 01-20-2023 GFR/1.73 sq M.predicted among non-blacks MDRD (S/P/Bld) [Vol rate/Area] 66 mL/min/1.73 m2 Normal >=59 [facility] Comment on above: Order Comment: Order added by Discern Expert. Result Comment: Registered Nurse Float Pool sher kidney disease could be indicated at eGFR's of less than 60 mL/min/1.73m2. Kidney failure is indicated at less than 15 mL/min/1.73m2. Performed By: #### 2 488886, 33108322, 4162049, 7874387, 938193428, 3343938 ####[facility] [address] [place] [address] CBC AUTO DIFFon 07-13-2022 BASO # 0.1 103/ul Normal 0.0-0.1 [facility] Comment on above: Performed By: #### C BC #### [facility] [address] [place] [address] Dr. Pilo Jansen Basophils/100 WBC (Bld) 1.0 % Normal 0.2-2.0 [facility] Comment on above: Performed By: #### C BC #### [facility] [address] [place] [address] Dr. Pilo Jansen EO # 0.1 103/ul Normal 0.0-0.7 [facility] Comment on above: Performed By: #### C BC #### [facility] [address] [place] [address] Dr. Pilo Jansen Eosinophils/100 WBC (Bld) 2.1 % Normal 0.9-7.0 [facility] Comment on above: Performed By: #### C BC #### [facility] [address] [place] [address] Dr. Pilo Jansen Erythrocyte distribution width (RBC) [Ratio] 12.0 % Normal 11.0-15.0 [facility] Comment on above: Performed By: #### C BC #### [facility] [address] [place] [address] Dr. Pilo Jansen Hematocrit (Bld) [Volume fraction] 40.7 % Critically low 42.0-54.0 [facility] Comment on above: Performed By: #### C BC #### [facility] [address] [place] [address] Dr. Pilo Jansen Hemoglobin (Bld) [Mass/Vol] 13.4 g/dL Critically low 14.0-18.0 [facility] Comment on above: Performed By: #### C BC #### [facility] [address] [place] [address] Dr. Pilo Jansen IG # 0.02 10e3/ul Normal 0.00-0.03 [facility] Comment on above: Performed By: #### C BC #### [facility] [address] [place] [address] Dr. Pilo Jansen IG % 0.4 % Normal 0.0-0.5 [facility] Comment on above: Performed By: #### C BC #### [facility] [address] [place] [address] Dr. Pilo Jansen LYMPH # 1.4 103/ul Normal 1.2-3.8 [facility] Comment on above: Performed By: #### C BC #### [facility] [address] [place] [address] Dr. Pilo Jansen Lymphocytes/100 WBC (Bld) 26.1 % Normal 20.5-60.0 [facility] Comment on above: Performed By: #### C BC #### [facility] [address] [place] [address] Dr. Pilo Jansen MANUAL DIFF REQ NO Normal [facility] Comment on above: Performed By: #### C BC #### [facility] [address] [place] [address] Dr. Pilo Jansen MCH (RBC) [Entitic mass] 33.2 pg Normal 25.9-34.0 [facility] Comment on above: Performed By: #### C BC #### [facility] [address] [place] [address] Dr. Pilo Jansen MCHC (RBC) [Mass/Vol] 32.9 g/dL Normal 29.9-35.2 [facility] Comment on above: Performed By: #### C BC #### [facility] [address] [place] [address] Dr. Pilo Jansen MCV (RBC) [Entitic vol] 100.7 fL Critically high 80.0-94.0 [facility] Comment on above: Performed By: #### C BC #### [facility] [address] [place] [address] Dr. Pilo Jansen MONO # 0.5 103/ul Normal 0.3-0.8 [facility] Comment on above: Performed By: #### C BC #### [facility] [address] [place] [address] Dr. Pilo Jansen Monocytes/100 WBC (Bld) 9.6 % Normal 1.7-12.0 [facility] Comment on above: Performed By: #### C BC #### [facility] [address] [place] [address] Dr. Pilo Jansen NEUT # 3.2 103/ul Normal 1.4-6.5 [facility] Comment on above: Performed By: #### C BC #### [facility] [address] [place] [address] Dr. Pilo Jansen Neutrophils/100 WBC (Bld) 60.8 % Normal 43.0-75.0 [facility] Comment on above: Performed By: #### C BC #### [facility] [address] [address] [address] Pilo Jansen Platelet mean volume (Bld) [Entitic vol] 9.3 fL Critically low 9.5-13.5 [facility] Comment on above: Performed By: #### C BC #### [facility] [address] [address] [address] Pilo Jansen PLT 204 103/ul Normal 150-450 [facility] Comment on above: Performed By: #### C BC #### [facility] [address] [address] [address] Pilo Jansen RBC 4.04 106/ul Critically low 4.70-6.10 [facility] Comment on above: Performed By: #### C BC #### [facility] [address] [place] [address] Dr. Pilo Jansen WBC 5.2 103/ul Normal 4.0-11.0 [facility] Comment on above: Performed By: #### C BC #### [facility] [address] [place] [address] Dr. Pilo Jansen GLYCOHEMOGLOBIN A1Con 2022 ADA RECOMMENDATION SEE BELOW Normal [facility] Comment on above: Result Comment: ADA RECOMMENDED LIMIT 4.0 - 6.0 ADA THERAPEUTIC TARGET < 7.0 ACTION SUGGESTED > 7.0 Performed By: #### A 1C #### [facility] [address] [place] [address] Dr. Pilo Jansen Glucose [Mass/Vol] 189 mg/dL Normal [facility] Comment on above: Performed By: #### A 1C #### [facility] [address] [place] [address] Dr. Pilo Jansen HbA1c (Bld) [Mass fraction] 8.2 % Critically high 4.5-6.2 [facility] Comment on above: Performed By: #### A 1C #### [facility] [address] [place] [address] Dr. Pilo Jansen LIPID PROFILEon 07-13-2022 CHOL-HDL RATIO NORM SEE BELOW Normal [facility] Comment on above: Result Comment: 3.3 - 4.4 LOW RISK 4.4 - 7.1 AVERAGE RISK 7.1 - 11.0 MODERATE RISK >11.0 HIGH RISK Performed By: #### L IPID, CMP #### [facility] [address] [address] [address] Pilo Jansen Cholesterol [Mass/Vol] 157 mg/dL Normal <=200 [facility] Comment on above: Performed By: #### L IPID, CMP #### [facility] [address] [address] [address] Pilo Jansen Cholesterol in HDL [Mass/Vol] 53 mg/dL Normal 40-60 [facility] Comment on above: Performed By: #### L IPID, CMP #### [facility] [address] [place] [address] Dr. Pilo Jansen Cholesterol in LDL [Mass/Vol] 81.8 mg/dL Normal [facility] Comment on above: Performed By: #### L IPID, CMP #### [facility] [address] [address] [address] Pilo Jansen Cholesterol.total/C holesterol in HDL [Mass ratio] 3.0 {ratio} Normal [facility] Comment on above: Performed By: #### L IPID, CMP #### [facility] [address] [place] [address] Dr. Pilo Jansen HDL NORMAL > or = 60 mg/dl - LO W CARDIOVASCULAR RISK <40 mg/dl - HIGH CARDIOVASCULAR RISK Normal [facility] Comment on above: Performed By: #### L IPID, CMP #### [facility] [address] [address] [address] Pilo Jansen LDL CALC NORMAL SEE BELOW Normal [facility] Comment on above: Result Comment: <100 mg/dl OPTIMAL 100 - 129 mg/dl NEAR OR ABOVE OPTIMAL 130 - 159 mg/dl BORDERLINE HIGH 160 - 189 mg/dl HIGH >190 mg/dl VERY HIGH Performed By: #### L IPID, CMP #### [facility] [address] [address] [address] Pilo Jansen Triglyceride [Mass/Vol] 111 mg/dL Normal <=150 [facility] Comment on above: Performed By: #### L IPID, CMP #### [facility] [address] [place] [address] Dr. Pilo Jansen VLDL CALC 22.2 mg/dL Normal [facility] Comment on above: Performed By: #### L IPID, CMP #### [facility] [address] [place] [address] Dr. Pilo Jnasen PROF 14(COMP METB)on 023 Albumin [Mass/Vol] 3.9 g/dL Normal 3.4-5.0 [facility] Comment on above: Performed By: #### L IPID, CMP #### [facility] [address] [place] [address] Dr. Pilo Jansen Albumin/Globulin [Mass ratio] 1.1 {ratio} Normal [facility] Comment on above: Performed By: #### L IPID, CMP #### [facility] [address] [place] [address] Dr. Pilo Jansen ALP [Catalytic activity/Vol] 81 U/L Normal 46-116 [facility] Comment on above: Performed By: #### L IPID, CMP #### [facility] [address] [place] [address] Dr. Pilo Jansen ALT [Catalytic activity/Vol] 28 U/L Normal 16-63 [facility] Comment on above: Performed By: #### L IPID, CMP #### [facility] [address] [place] [address] Dr. Pilo Jansen Anion gap [Moles/Vol] 13.6 mmol/L Normal [facility] Comment on above: Performed By: #### L IPID, CMP #### [facility] [address] [place] [address] Dr. Pilo Jansen AST [Catalytic activity/Vol] 23 U/L Normal 15-37 [facility] Comment on above: Performed By: #### L IPID, CMP #### [facility] [address] [place] [address] Dr. Pilo Jansen Bilirubin [Mass/Vol] 0.8 mg/dL Normal 0.2-1.0 [facility] Comment on above: Performed By: #### L IPID, CMP #### [facility] [address] [place] [address] Dr. Pilo Jansen Calcium [Mass/Vol] 9.3 mg/dL Normal 8.5-10.1 [facility] Comment on above: Performed By: #### L IPID, CMP #### [facility] [address] [place] [address] Dr. Pilo Jansen Chloride [Moles/Vol] 101 mmol/L Normal 98-107 [facility] Comment on above: Performed By: #### L IPID, CMP #### [facility] [address] [place] [address] Dr. Pilo Jansen CO2 [Moles/Vol] 29.7 mmol/L Normal 21.0-32.0 [facility] Comment on above: Performed By: #### L IPID, CMP #### [facility] [address] [place] [address] Dr. Pilo Jansen Creatinine [Mass/Vol] 0.86 mg/dL Normal 0.70-1.30 [facility] Comment on above: Performed By: #### L IPID, CMP #### [facility] [address] [place] [address] Dr. Pilo Jansen EGFR-AF MALAYSIAN >60 Normal >=60 [facility] Comment on above: Performed By: #### L IPID, CMP #### [facility] [address] [place] [address] Dr. Pilo Jansen EGFR-NON AF MALAYSIAN >60 Normal >=60 [facility] Comment on above: Performed By: #### L IPID, CMP #### [facility] [address] [place] [address] Dr. Pilo Jansen Globulin (S) [Mass/Vol] 3.7 g/dL Normal [facility] Comment on above: Performed By: #### L IPID, CMP #### [facility] [address] [place] [address] Dr. Pilo Jansen Glucose [Mass/Vol] 186 mg/dL Critically high 74-106 [facility] Comment on above: Performed By: #### L IPID, CMP #### [facility] [address] [place] [address] Dr. Pilo Jansen Potassium [Moles/Vol] 4.3 mmol/L Normal 3.5-5.1 [facility] Comment on above: Performed By: #### L IPID, CMP #### [facility] [address] [place] [address] Dr. Pilo Jansen Protein [Mass/Vol] 7.6 g/dL Normal 6.4-8.2 [facility] Comment on above: Performed By: #### L IPID, CMP #### [facility] [address] [place] [address] Dr. Pilo Jansen Sodium [Moles/Vol] 140 mmol/L Normal 136-145 [facility] Comment on above: Performed By: #### L IPID, CMP #### [facility] [address] [place] [address] Dr. Pilo Jansen Urea nitrogen [Mass/Vol] 10.0 mg/dL Normal 7.0-18.0 [facility] Comment on above: Performed By: #### L IPID, CMP #### [facility] [address] [place] [address] Dr. Pilo Jansen Urea nitrogen/Creatinine [Mass ratio] 11.6 mg/mg Normal [facility] Comment on above: Performed By: #### L IPID, CMP #### [facility] [address] [place] [address] Dr. Pilo Jansen Vital Signs Date Time Vital Sign Value Performing Clinician Nicholas mcleod 05-16-2023 07:57-0500 Diastolic blood pressure 90 mm[Hg] Jose Grace [facility] 05-16-2023 07:57-0500 Mean blood pressure 111 mm[Hg] Jose Grace [facility] 05-16-2023 07:57-0500 Systolic blood pressure 152 mm[Hg] Jose Grace [facility] Encounters Encounter Date Encounter Type Care Provider Facility Start: 07-14-2023 ambulatory Jose Grace Facility :[facility] Start: 06-29-2023 ambulatory Christy Mulligan Facility: [facility] Start: 06-28-2023 End: 06-29-2023 ambulatory Jose Grace [place] [place]: 06-28-2023 End: 06-28-2023 Lab Drop off Jose Grace [facility] Start: 06-23-2023 End: 06-24-2023 ambulatory Manolo ALLEN Facility:[facility] Start: 06-23-2023 End: 06-23-2023 Patient encounter procedure Manolo ALLEN [facility] Start: 06-22-2023 End: 06-23-2023 ambulatory YOEL OBREGON Facility:[facility] Start: 06-22-2023 End: 06-22-2023 Patient encounter procedure YOEL JUNIORRY [facility] Start: 06-21-2023 End: 06-22-2023 ambulatory YOEL OBREGON Facility:[facility] Start: 06-21-2023 End: 06-21-2023 Patient encounter procedure YOEL JUNIORRY [facility] Start: 06-20-2023 End: 06-21-2023 ambulatory Jose Grace [place]: 06-16-2023 ambulatory Jose Grace Facility :CD:[id number] Start: 06-14-2023 End: 06-15-2023 ambulatory Ranjan ROSS Facility[place] Start: 06-13-2023 End: 06-14-2023 ambulatory Jose Grace [place] Start: 06-13-2023 End: 06-13-2023 Lab Drop off Jose Grace [facility] Start: 05-27-2023 End: 05-28-2023 ambulatory Christy L Ese [place] Start: 05-27-2023 End: 05-27-2023 Lab Drop off Christy L Ese [facility] Start: 05-26-2023 End: 05-27-2023 ambulatory Jose Grace Facility[place] Start: 05-26-2023 End: 05-27-2023 ambulatory Jose Grace Facility:[facility] [place] Start: 05-26-2023 End: 05-26-2023 Lab Drop off Jose Grace [facility] Start: 05-18-2023 End: 06-10-2023 Pre-admission assessment Jose Grace [facility] Start: 05-16-2023 End: 05-17-2023 ambulatory Jose Grace Facility[place] Start: 05-16-2023 End: 05-16-2023 Lab Drop off Jose Grace [facility] Start: 04-25-2023 ambulatory Jose Grace Facility[facility] [place] Start: 04-06-2023 ambulatory Jose Grace [facility] Start: 04-04-2023 End: 04-05-2023 ambulatory Christy L Ese [place] Start: 04-04-2023 End: 04-04-2023 Lab Drop off Christy L Ese [facility] Start: 04-04-2023 End: 04-05-2023 ambulatory Christy L Ese Facility[place] Start: 04-04-2023 End: 04-04-2023 Lab Drop off Christy L Ese [facility] Start: 02-14-2023 End: 02-15-2023 ambulatory Jose Grace Facility:[facility] Start: 01-20-2023 End: 01-21-2023 ambulatory Jose Grace Facility[place] Start: 01-20-2023 End: 01-20-2023 Lab Drop off Jose Grace [facility] Start: 09-16-2022 ambulatory Jose Grace Facility:[facility] Start: 07-13-2022 End: 07-14-[address] TYRESE MCGRATH Facility:[facility] Procedures Date Procedure Procedure Detail Performing Clinician Start: 07-13-[address] TYRESE RIVERAT Comment on above: Performed By: #### P SAD #### [facility] [address] [place] [address] Dr. Pilo Jansen Arthroscopy Jose Grace Comment on above: right back surgery 2 Jose Grace Comment on above: lower back Decompression of med valdo nerve Jose Grace hand and elbow surgery 3 Marcin Grace Comment on above: left Hand tendon repaired Jose Grace Comment on above: left thumb tendon Plan of Treatment Date Care Activity Detail Author Start: 07-25-2023 ambulatory Ambulatory Facility:[facility] Start: 07-15-2023 ambulatory Ambulatory Facility:[facility] Immunizations Immunization Date Immunization Notes Care Provider Fa cili 03-16-2023 influenza virus vaccine, unspecified formulation Jose Grace [facility] 04-05-2022 influenza virus vaccine, unspecified formulation Jose Grace [facility] 04-05-2022 SARS-CoV-2 (COVID-19 ) [id number] Jose Grace [facility] 03-01-2021 influenza virus vaccine, unspecified formulation Jose Grace [facility] 03-01-2021 SARS-CoV-2 (COVID-19 ) mRNA BNT-162b2 vax Jose Grace [facility] Comment on above: Result Comment: 2022: [id number] 08-08-2020 SARS-CoV-2 (COVID-19 ) mRNA BNT-162b2 Kitsy Lanex Jose Grace [facility] 07-18-2020 SARS-CoV-2 (COVID-19 ) mRNA BNT-162b2 FOODITY oJse Grace [facility] 03-09-2020 influenza virus vaccine, unspecified formulation Jose Grace [facility] 03-09-2020 pneumococcal conjuga te vaccine, 13 valent Jose Grace [facility] NEGATED: Highlighted row has not occurred!02-14-2023 influenza virus vaccine, unspecified formulation Christy Ese [facility] Payers Date Payer Category Payer Unknown [id number] 1960 Medicare [id number] 1960 Unknown [id number] 1955 Unknown [id number] 2.16.84 0.1.531703.3.579.2.593 1954 Unknown [id number] 2.16.8 40.1.545467.3.579.2.727 1954 Unknown [id number] 2.16.8 40.1.395150.3.579.2.727 1954 Unknown [id number] 2.16.8 40.1.139663.3.579.2. 1954 Unknown [id number] 2.16.8 40.1.615632.3.579.2. 1954 Unknown [id number] 2.16.8 40.1.664700.3.579.2. 1954 Unknown [id number] 2.16.8 40.1.237951.3.579.2. 1954 Unknown [id number] 2.16.8 40.1.626300.3.579.2. 1954 Unknown [id number] 2.16.8 40.1.371924.3.579.2 1954 Unknown [id number] 2.16.8 40.1.705551.3.579.2 1954 Unknown [id number] 2.16.8 40.1.138805.3.579.2 1954 Unknown [id number] 2.16.8 40.1.391043.3.579.2 1954 Unknown [id number] 2.16.8 40.1.614783.3.579.2 1954 Unknown [id number] 2.16.8 40.1.941531.3.579.2. 1954 Unknown [id number] 2.16.8 40.1.536949.3.579.2 1954 Unknown [id number] 2.16.8 40.1.016585.3.579.2 1954 Unknown [id number] 2.16.8 40.1.072949.3.579.2 1954 Unknown [id number] 2.16.8 40.1.632789.3.579.2 1954 Unknown [id number] 2.16.8 40.1.888725.3.579.2.727 1954 Unknown [id number] 2.16.8 40.1.128365.3.579.2.727 1954 Unknown [id number] 2.16.8 40.1.658967.3.579.2.727 1954 Unknown [id number] 2.16.8 40.1.369999.3.579.2.727 1954 Unknown [id number] 2.16.8 40.1.397217.3.579.2.72 1954 Unknown [id number] 2.16.8 40.1.932175.3.579.2.727 1954 Unknown [id number] 2.16.8 40.1.110844.3.579.2.727 1954 Unknown [id number] 2.16.8 40.1.636091.3.579.2.727 1954 Unknown [id number] 2.16.8 40.1.934041.3.579.2.727 1954 Unknown [id number] 2.16.8 40.1.573651.3.579.2.727 1954 Unknown [id number] 2.16.8 40.1.204870.3.579.2.727 Social History Date Type Detail Facility Start: 01-20-2023 End: 06-28-2023 Tobacco smoking status Ex-smoker (finding) [facility] Tobacco smoking status Smokeless tobacco user within last 30 days [facility] Sex Assigned At Male [facility] Medical Equipment Procedure Code Equipment Code Equipment Origin al Text Equipment Identifier Dates Misc DME Prescription, See Instructions, 100 strip(s), 3, One touch ultra 2 test strips Use to tests sugars once a day Dx E11.9, [facility], Supply, 174.5, cm, 05/26/23 9:14:00 EST, Height/Length Dosing, 109.1, kg, 05/26/23 9:14:00 EST, Weight Dosing Start: 05-26-2023 [facility] Prescription, See Instructions, 100 lancet(s), 3, Soft click lancets Use to test blood sugars once a day Dx E11.9, [facility], Supply, 174.5, cm, 05/26/23 9:14:00 EST, Height/Length Dosing, 109.1, kg, 05/26/23 9:14:00 EST, Weight Dosing Start: 05-26-2023 [facility] Prescription, See Instructions, 100 strip(s), 3, One touch ultra 2 test strips Use to tests sugars once a day Dx E11.9, [facility], Supply, 174.5, cm, 05/26/23 9:14:00 EST, Height/Length Dosing, 109.1, kg, 05/26/23 9:14:00 EST, Weight Dosing Start: 05-26-2023 [facility] Prescription, See Instructions, 100 lancet(s), 3, Soft click lancets Use to test blood sugars once a day Dx E11.9, [facility], Supply, 174.5, cm, 05/26/23 9:14:00 EST, Height/Length Dosing, 109.1, kg, 05/26/23 9:14:00 EST, Weight Dosing Start: 05-26-2023 [facility] Prescription, See Instructions, 100 strip(s), 3, One touch ultra 2 test strips Use to tests sugars once a day Dx E11.9, [facility], Supply, 174.5, cm, 05/26/23 9:14:00 EST, Height/Length Dosing, 109.1, kg, 05/26/23 9:14:00 EST, Weight Dosing Start: 05-26-2023 [facility] Prescription, See Instructions, 100 lancet(s), 3, Soft click lancets Use to test blood sugars once a day Dx E11.9, [facility], Supply, 174.5, cm, 05/26/23 9:14:00 EST, Height/Length Dosing, 109.1, kg, 05/26/23 9:14:00 EST, Weight Dosing Start: 05-26-2023 [facility] Prescription, See Instructions, 100 strip(s), 3, One touch ultra 2 test strips Use to tests sugars once a day Dx E11.9, [facility], Supply, 174.5, cm, 05/26/23 9:14:00 EST, Height/Length Dosing, 109.1, kg, 05/26/23 9:14:00 EST, Weight Dosing Start: 05-26-2023 [facility] Prescription, See Instructions, 100 lancet(s), 3, Soft click lancets Use to test blood sugars once a day Dx E11.9, [facility], Supply, 174.5, cm, 05/26/23 9:14:00 EST, Height/Length Dosing, 109.1, kg, 05/26/23 9:14:00 EST, Weight Dosing Start: 05-26-2023 [facility] Prescription, See Instructions, 100 strip(s), 3, One touch ultra 2 test strips Use to tests sugars once a day Dx E11.9, [facility], Supply, 174.5, cm, 05/26/23 9:14:00 EST, Height/Length Dosing, 109.1, kg, 05/26/23 9:14:00 EST, Weight Dosing Start: 05-26-2023 [facility] Prescription, See Instructions, 100 lancet(s), 3, Soft click lancets Use to test blood sugars once a day Dx E11.9, [facility], Supply, 174.5, cm, 05/26/23 9:14:00 EST, Height/Length Dosing, 109.1, kg, 05/26/23 9:14:00 EST, Weight Dosing Start: 05-26-2023 [facility] Prescription, See Instructions, 100 strip(s), 3, One touch ultra 2 test strips Use to tests sugars once a day Dx E11.9, [facility], Supply, 174.5, cm, 05/26/23 9:14:00 EST, Height/Length Dosing, 109.1, kg, 05/26/23 9:14:00 EST, Weight Dosing Start: 05-26-2023 [facility] Prescription, See Instructions, 100 lancet(s), 3, Soft click lancets Use to test blood sugars once a day Dx E11.9, [facility], 174.5, cm, 05/26/23 9:14:00 EST, Height/Length Dosing, 109.1, kg, 05/26/23 9:14:00 EST, Weight Dosing Start: 05-26-2023 [facility] Prescription, See Instructions, 100 strip(s), 3, One touch ultra 2 test strips Use to tests sugars once a day Dx E11.9, [facility], 174.5, cm, 05/26/23 9:14:00 EST, Height/Length Dosing, 109.1, kg, 05/26/23 9:14:00 EST, Weight Dosing Start: 05-26-2023 [facility] Prescription, See Instructions, 100 lancet(s), 3, Soft click lancets Use to test blood sugars once a day Dx E11.9, [facility], 174.5, cm, 05/26/23 9:14:00 EST, Height/Length Dosing, 109.1, kg, 05/26/23 9:14:00 EST, Weight Dosing Start: 05-26-2023 [facility] Prescription, See Instructions, 100 strip(s), 3, One touch ultra 2 test strips Use to tests sugars once a day Dx E11.9, [facility], 174.5, cm, 05/26/23 9:14:00 EST, Height/Length Dosing, 109.1, kg, 05/26/23 9:14:00 EST, Weight Dosing Start: 05-26-2023 [facility] Prescription, See Instructions, 100 lancet(s), 3, Soft click lancets Use to test blood sugars once a day Dx E11.9, [facility], 174.5, cm, 05/26/23 9:14:00 EST, Height/Length Dosing, 109.1, kg, 05/26/23 9:14:00 EST, Weight Dosing Start: 05-26-2023 Functional Status Date Assessment Result Facility 06-21-2023 Functional Status N/A [facility] Clinical Notes 06-13-2019 to 06-28-2023 [facility] Note Date & Type Note Facility 06-28-2023 Note Chief Complaint R\Dr. Grace referral HPI Staff 68 year old male referred by Dr. Grace due to hematuria. Pt was in [facility] on 06/05/23 due to dizziness. Pt. had Chong placed at [facility] and had almost 2 L drain out. Pt. was given Flomax by ER. Pt. had positive urine culture on 04/04/23 given Cipro 500mg, 05/16/23 given Cephalexin 250mg and 05/26/23 given Cephalexin. Pt. was given Cipro be [facility] ER. Pt. seen Dr. Dunham in 2017 due to BPH w/LUTS, RLQ pain, incontinence w/out sensory awareness, feeling of incomplete bladder emptying, nocturia, poor urinary stream, unspecified disorder of male genital organs and unspecified orchitis and epididymitis. S/P Cysto/UD done 10/21/16. Pt. states he has not seen any blood or clots in catheter bag. PSA 6.1 done 04/04/23. History of Present Illness staff HPI reviewed and agree. Review of Systems PHQ Score Initial Depression Screen Score: 0 SCORE no fever, chills, malaise, myalgia. no rash/lesions. no chest pain, palpitations, or SOB. no abdominal pain, nausea, vomiting. no unilateral calf swelling, redness, pain Physical Exam Vitals & Measurements HT: 69 in HT: 174.5 cm WT: 102.3 kg WT: 225.06 lb BMI: 33.6 General: nontoxic, NAD Mouth: moist mucosa Lungs: normal respiratory effort Cardio: regular rate, good distal perfusion Abdomen: nondistended, no suprapubic distention or tenderness, no CVA tenderness Neurologic: Grossly normal Skin: No rashes or suspicious lesions Procedure Pt's catheter has been removed in office with no complications. They have been advised to drink plenty of fluids. Pt. has been instructed to call the office in the event that they are not able to void in the next 4-6 hrs. Advised pt. to go to the ER if they experience any severe bleeding, fever over 101, and/or shaking chills. Assessment/Plan Alicja is a 68 yo male new pt referred by Dr. Grace, here for f/u to ER visit due to urinary retention. Former Dr. Dunham pt, was to have cysto 10/21/16 but didn't show up for appt per pt. MICHAEL 14. 1. Urinary retention (R33.9: Retention of urine, unspecified) [facility] ER visit 06/04/23 due to chills and dizziness after dealing with a UTI for a few weeks. Found to have distended bladder with >1600mL. Had catheter placed with 2L output. Started on Tamsulosin 0.4mg qd. Also given Cipro 500mg. CT AP wo con 06/04/23 [facility] - Catheter in place. Unremarkable prostate and seminal vesicles. Punctate R renal stone. Modest bilateral hydroureteronephrosis through UVJs. Renal fxn: 05/23/23 - BUN 22, Cr 1.64 06/04/23 - BUN 24, Cr 1.59 Discussed options such as catheter removal today with risk of being unable to void and having to go to ER tonight after hours vs nurse visit within the next week for catheter removal first thing in morning and could return to our office for chong replacement if needed. Pt prefers to have catheter removed IO today. Also discussed cystoscopy to evaluate prostate/urethra due to recent urinary retention. Will help to determine candidacy for operative interventions such as TURP, Rezum, or Urolift. These were not discussed at length today as the pt seemed a bit overwhelmed by all the information we were already reviewing. I did not provide him w the brochures yet. Focused mainly on the retention, chong removal/void trial instructions, and cysto instructions (+ see #2). -Cath removal IO today -PVR at nurse visit within next week. Chong if >350ml. -Will schedule cystoscopy. The risks and benefits for cystoscopy have been discussed. The risks include bleeding, infection, and irritation of the bladder and urinary channel, among others. The patient, after being informed of procedural details and after questions have been answered, wishes to proceed. Full informed consent has been obtained. Will order Local anesthesia. 2. Elevated PSA (R97.20: Elevated prostate specific antigen [PSA]) PSA 06/22/11 - 0.41 11/09/18 - 0.41 01/10/20 - 0.36 02/03/21 - 0.44 07/13/22 - 0.43 04/04/23 - 6.1 Discussed PSA level. Has significantly increased from prior. I discussed the pros and cons of PSA with the patient today. The various causes of PSA elevation were outlined, including prostate cancer, prostate enlargement, infection of the prostate, inflammation without infection, as well as prostate manipulation. The options regarding this PSA elevation, including prostate biopsy versus close monitoring, versus obtaining an MRI of the prostate were discussed. The patient has decided upon obtaining an MRI of the prostate. Pt understands that this may lead to recommendation of prostate MRI. We did not go into great detail regarding biopsy during today's ov as he was seeming a bit overwhelmed already with everything reviewed. Intended to do RAFA after removing chong IO but pt left office before I was able to get back in room. -Pro[place] [facility] 3. Recurrent UTI (N39.0: Urinary tract infection, site not specified) Pt has been to the ER multiple times for UTIs in the last few months. UCx 04/04/23 - 5 (more content not included)... [facility] Comment on above: Result Comment: Elec tronically Signed By: Deirdre Gerard\.br\Date and Time Signed: 06/28/23 13:56 EST 06-21-2023 Hospital Discharge instructions Patient Education 06/21/2023 14:21:26 Cystoscopy Cystoscopy Cystoscopy is a procedure that is used to help diagnose and sometimes treat conditions that affect the lower urinary tract. The lower urinary tract includes the bladder and the urethra. The urethra is the tube that drains urine from the bladder. Cystoscopy is done using a thin, tube-shaped instrument with a light and camera at the end (cystoscope). The cystoscope may be hard or flexible, depending on the goal of the procedure. The cystoscope is inserted through the urethra, into the bladder. Cystoscopy may be recommended if you have: Urinary tract infections that keep coming back. Blood in the urine (hematuria). An inability to control when you urinate (urinary incontinence) or an overactive bladder. Unusual cells found in a urine sample. A blockage in the urethra, such as a urinary stone. Painful urination. An abnormality in the bladder found during an intravenous pyelogram (IVP) or CT scan. Cystoscopy may also be done to remove a sample of tissue to be examined under a microscope (biopsy). Tell a health care provider about: Any allergies you have. All medicines you are taking, including vitamins, herbs, eye drops, creams, and orxk-fev-dklfkpw medicines. Any problems you or family members have had with anesthetic medicines. Any blood disorders you have. Any surgeries you have had. Any medical conditions you have. Whether you are or may be . What are the risks? Generally, this is a safe procedure. However, problems may occur, including: Infection. Bleeding. Allergic reactions to medicines. Damage to other structures or organs. What happens before the procedure? Medicines Ask your health care provider about: Changing or stopping your regular medicines. This is especially important if you are taking diabetes medicines or blood thinners. Taking medicines such as aspirin and ibuprofen. These medicines can thin your blood. Do not take these medicines unless your health care provider tells you to take them. Taking txte-utn-agddwug medicines, vitamins, herbs, and supplements. Tests You may have an exam or testing, such as: X-rays of the bladder, urethra, or kidneys. CT scan of the abdomen or pelvis. Urine tests to check for signs of infection. General instructions Follow instructions from your health care provider about eating or drinking restrictions. Ask your health care provider what steps will be taken to help prevent infection. These steps may include: ?Washing skin with a germ-killing soap. ?Taking antibiotic medicine. Plan to have a responsible adult take you home from the hospital or clinic. What happens during the procedure? You will be given one or more of the following: ?A medicine to help you relax (sedative). ?A medicine to numb the area (local anesthetic). The area around the opening of your urethra will be cleaned. The cystoscope will be passed through your urethra into your bladder. Germ-free (sterile) fluid will flow through the cystoscope to fill your bladder. The fluid will stretch your bladder so that your health care provider can clearly examine your bladder marina. Your doctor will look at the urethra and bladder. Your doctor may take a biopsy or remove stones. The cystoscope will be removed, and your bladder will be emptied. The procedure may vary among health care providers and hospitals. What can I expect after the procedure? After the procedure, it is common to have: Some soreness or pain in your abdomen and urethra. Urinary symptoms. These include: ?Mild pain or burning when you urinate. Pain should stop within a few minutes after you urinate. This may last for up to 1 week. ?A small amount of blood in your urine for several days. ?Feeling like you need to urinate but producing only a small amount of urine. Follow these instructions at home: Medicines Take cxij-mgr-cksljjj and prescription medicines only as told by your health care provider. If you were prescribed an antibiotic medicine, take it as told by your health care provider. Do not stop taking the antibiotic even if you start to feel better. General instructions Return to your normal activities as told by your health care provider. Ask your health care provider what activities are safe for you. If you were given a sedative during the procedure, it can affect you for several hours. Do not drive or operate machinery until your health care provider says that it is safe. Watch for any blood in your urine. If the amount of blood in your urine increases, call your health care provider. Follow instructions from your health care provider about eating or drinking restrictions. If a tissue sample was removed for testing (biopsy) during your procedure, it is up to you to get your test results. Ask your health care provider, or the department that is doing the test, when your results will be ready. Drink enough fluid to keep your urine pale yellow. Keep all follow-up visits. This is important. Contact a health care provider if: You have pain that gets worse or does not get better with medicine, especially pain when you urinate. You have trouble urinating. You have more blood in your urine. Get help right away if: You have blood clots in your urine. You have abdominal pain. You have a fever or chills. You are unable to urinate. Summary Cystoscopy is a procedure that is used to help diagnose and sometimes treat conditions that affect the lower urinary tract. Cystoscopy is done using a thin, tube-shaped instrument with a light and camera at the end. After the procedure, it is common to have some soreness or pain in your abdomen and urethra. Watch for any blood in your urine. If the amount of blood in your urine increases, call your health care provider. If you were prescribed an antibiotic medicine, take it as told by your health care provider. Do not stop taking the antibiotic even if you start to feel better. This information is not intended to replace advice given to you by your health care provider. Make sure you discuss any questions you have with your health care provider. Document Revised: 02/03/2022 Document Reviewed: 01/02/2021 [employer] Patient Education 2022 [employer]. 06/21/2023 14:21:23 Acute Urinary Retention, Male Acute Urinary Retention, Male Acute urinary retention is a condition in which a person is unable to pass urine or can only pass a little urine. This condition can happen suddenly and last for a short time. If left untreated, it can become long-term (chronic) and result in kidney damage or other serious complications. What are the causes? This condition may be caused by: Obstruction or narrowing of the tube that drains the bladder (urethra). This may be caused by surgery, problems with nearby organs, or injury to the bladder or urethra. Problems with the nerves in the bladder. Tumors in the area of the pelvis, bladder, or urethra. Certain medicines. Bladder or urinary tract infection. Constipation. What increases the risk? This condition is more likely to develop in older men. As men age, their prostate may become larger and may start to press or squeeze on the bladder or the urethra. Other chronic health conditions can increase the risk of acute urinary retention. These include: Diseases such as multiple sclerosis. Spinal cord injuries. Diabetes. Degenerative cognitive conditions, such as delirium or dementia. Psychological conditions. A man may hold his urine due to trauma or because he does not want to use the bathroom. What are the signs or symptoms? Symptoms of this condition include: Trouble urinating. Pain in the lower abdomen. How is this diagnosed? This condition is diagnosed based on a physical exam and your medical history. You may also have other tests, including: An ultrasound of the bladder or kidneys or both. Blood tests. A urine analysis. Additional tests may be needed, such as a CT scan, MRI, and kidney or bladder function tests. How is this treated? Treatment for this condition may include: Medicines. Placing a thin, sterile tube (catheter) into the bladder to drain urine out of the body. This is called an indwelling urinary catheter. After it is inserted, the catheter is held in place with a small balloon that is filled with sterile water. Urine drains from the catheter into a collection bag outside of the body. Behavioral therapy. Treatment for other conditions. If needed, you may be treated in the hospital for kidney function problems or to manage other complications. Follow these instructions at home: Medicines Take rgao-lgf-lnxbafh and prescription medicines only as told by your health care provider. Avoid certain medicines, such as decongestants, antihistamines, and some prescription medicines. Do not take any medicine unless your health care provider approves. If you were prescribed an antibiotic medicine, take it as told by your health care provider. Do not stop using the antibiotic even if you start to feel better. General instructions Do not use any products that contain nicotine or tobacco. These products include cigarettes, chewing tobacco, and vaping devices, such as e-cigarettes. If you need help quitting, ask your health care provider. Drink enough fluid to keep your urine pale yellow. If you have an indwelling urinary catheter, follow the instructions from your health care provider. Monitor any changes in your symptoms. Tell your health care provider about any changes. If instructed, monitor your blood pressure at home. Report changes as told by your health care provider. Keep all follow-up visits. This is important. Contact a health care provider if: You have uncomfortable bladder contractions that you cannot control (spasms). You leak urine with the spasms. Get help right away if: You have chills or a fever. You have blood in your urine. You have a catheter and the following happens: ?Your catheter stops draining urine. ?Your catheter falls out. Summary Acute urinary retention is a condition in which a person is unable to pass urine or can only pass a little urine. If left untreated, this condition can result in kidney damage or other serious complications. An enlarged prostate may cause this condition. As men age, their prostate gland may become larger and may press or squeeze on the bladder or the urethra. Treatment for this condition may include medicines and placement of an indwelling urinary catheter. Monitor any changes in your symptoms. Tell your health care provider about any changes. This information is not intended to replace advice given to you by your health care provider. Make sure you discuss any questions you have with your health care provider. Document Revised: 02/11/2021 Document Reviewed: 02/11/2021 [employer] Patient Education 2022 [employer]. Follow Up Care 06/21/2023 10:00:59 With:YOEL OBREGON PA-C, URL Address: [address] [place] [address] [phone] When: Unknown Comments:sched cysto and prostate MRI [facility] 06-21-2023 Note Urology Cystoscopy Cystoscopy is a procedure that is used to help diagnose and sometimes treat conditions that affect the lower urinary tract. The lower urinary tract includes the bladder and the urethra. The urethra is the tube that drains urine from the bladder. Cystoscopy is done using a thin, tube-shaped instrument with a light and camera at the end (cystoscope). The cystoscope may be hard or flexible, depending on the goal of the procedure. The cystoscope is inserted through the urethra, into the bladder. Cystoscopy may be recommended if you have: ? Urinary tract infections that keep coming back. ? Blood in the urine (hematuria). ? An inability to control when you urinate (urinary incontinence) or an overactive bladder. ? Unusual cells found in a urine sample. ? A blockage in the urethra, such as a urinary stone. ? Painful urination. ? An abnormality in the bladder found during an intravenous pyelogram (IVP) or CT scan. Cystoscopy may also be done to remove a sample of tissue to be examined under a microscope (biopsy). Tell a health care provider about: ? Any allergies you have. ? All medicines you are taking, including vitamins, herbs, eye drops, creams, and wemi-ztu-llhodwt medicines. ? Any problems you or family members have had with anesthetic medicines. ? Any blood disorders you have. ? Any surgeries you have had. ? Any medical conditions you have. ? Whether you are or may be . What are the risks? Generally, this is a safe procedure. However, problems may occur, including: ? Infection. ? Bleeding. ? Allergic reactions to medicines. ? Damage to other structures or organs. What happens before the procedure? Medicines Ask your health care provider about: ? Changing or stopping your regular medicines. This is especially important if you are taking diabetes medicines or blood thinners. ? Taking medicines such as aspirin and ibuprofen. These medicines can thin your blood. Do not take these medicines unless your health care provider tells you to take them. ? Taking ktzw-bwt-fuhgiuh medicines, vitamins, herbs, and supplements. Tests You may have an exam or testing, such as: ? X-rays of the bladder, urethra, or kidneys. ? CT scan of the abdomen or pelvis. ? Urine tests to check for signs of infection. General instructions ? Follow instructions from your health care provider about eating or drinking restrictions. ? Ask your health care provider what steps will be taken to help prevent infection. These steps may include: ? Washing skin with a germ-killing soap. ? Taking antibiotic medicine. ? Plan to have a responsible adult take you home from the hospital or clinic. What happens during the procedure? ? You will be given one or more of the following: ? A medicine to help you relax (sedative). ? A medicine to numb the area (local anesthetic). ? The area around the opening of your urethra will be cleaned. ? The cystoscope will be passed through your urethra into your bladder. ? Germ-free (sterile) fluid will flow through the cystoscope to fill your bladder. The fluid will stretch your bladder so that your health care provider can clearly examine your bladder marina. ? Your doctor will look at the urethra and bladder. Your doctor may take a biopsy or remove stones. ? The cystoscope will be removed, and your bladder will be emptied. The procedure may vary among health care providers and hospitals. What can I expect after the procedure? After the procedure, it is common to have: ? Some soreness or pain in your abdomen and urethra. ? Urinary symptoms. These include: ? Mild pain or burning when you urinate. Pain should stop within a few minutes after you urinate. This may last for up to 1 week. ? A small amount of blood in your urine for several days. ? Feeling like you need to urinate but producing only a small amount of urine. Follow these instructions at home: Medicines ? Take tdde-ahk-ewyhxvo and prescription medicines only as told by your health care provider. ? If you were prescribed an antibiotic medicine, take it as told by your health care provider. Do not stop taking the antibiotic even if you start to feel better. General instructions ? Return to your normal activities as told by your health care provider. Ask your health care provider what activities are safe for you. ? If you were given a sedative during the procedure, it can affect you for several hours. Do not drive or operate machinery until your health care provider says that it is safe. ? Watch for any blood in your urine. If the amount of blood in your urine increases, call your health care provider. ? Follow instructions from your health care provider about eating or drinking restrictions. ? If a tissue sample was removed for testing (biopsy) during your procedure, it is up to you to get your test results. Ask your health care provider, or the department th (more content not included)... [facility] 06-16-2023 Note Chief Complaint dizzy and had lab work that was abnormal History of Present Illness 68 year old morbid obese male with past medical history significant for DM, HTN, HLD, past smoker, ETOH abuse in remission x 2 months, recent urinary retention w/freq UTIs-chronic cath x 1 week. Patient presented today from his PCP office secondary to critical potassium level 2.7 and dizziness. Repeat lab work in the ED showed potassium level 2.9, calcium level 7.0 and magnesium level < 0.5. Pt denies any diuretic use however pt does take a combo of lisinopril/HCTZ. Complains dizziness. Is fevers, chills, chest pain, shortness of breath, nausea, vomiting or diarrhea. States that he had chronic Chong placed about 1 week ago following urinary obstruction and was placed on Flomax at that time. Patient does have a pending follow-up with urology in 3 weeks. The ED patient was treated with calcium gluconate, magnesium 2 g IV and potassium chloride 40 mill equivalents. An additional 2 g of magnesium was ordered for total of 4 g. Was admitted to the hospital due to symptomatic dizziness from electrolyte imbalances. Review of Systems Additional ROS info: Except as noted in the above Review of Systems and in the History of Present Illness all other systems have been reviewed and are negative or noncontributory. Scoring Michel Fall Risk Score: 35 (06/14/23) Physical Exam Vitals & Measurements T: 36.7 ?C(Oral) TMIN: 36.5 ?C(Oral) TMAX: 36.7 ?C(Oral) HR: 100(Peripheral) RR: 16 BP: 154/77 SpO2: 99% HT: 175.26 cm WT: 102.5 kg General: NAD Head: Normocephalic, atraumatic Neck: Supple, nontender, No JVD Eye: PERRLA, EOMI 3mm non icteric. ENT: Rhinophyma noted to nose. Moist mucus membranes Cardiovascular: Regular rate and rhythm. No edema, normal peripheral perfusion Respiratory: Clear upper lobes with diminished bases. No respiratory distress no accessory muscle use no obvious audible wheezing Musculoskeletal: normal ROM, no deformity, no swelling GI: Soft no obvious distention. No rebound or rigidity. No guarding. No tenderness. Skin: Sallow, Warm, dry, no pallor noted. vascular discoloration noted to bilateral lower legs. Neurological: A&O x 3; speech clear; moves all extremities equal strength and symmetry. no tremors. Psychiatric: Cooperative and appropriate Lab Results WBC: 6 E9/L (06/14/23 11:17:00) RBC: 4.3 E12/L (06/14/23:17:00) HGB: 13.1 gm/dL Low (06/14/23 11:17:00) Hct: 39.5 % (06/14/23:17:) MCV: 92.3 fL (06/14/23:17:00) MCH: 30.6 pg (06/14/23:17:00) MCHC: 33.1 gm/dL (06/14/23:17:00) RDW: 13.2 % (06/14/23 11:17:00) Platelet: 235 E9/L (06/14/23 11:17:00) MPV: 7.9 fL (06/14/23 11:17:00) Neutro Auto: 61.4 % (06/14/23:17:00) Lymph Auto: 23.8 % (06/14/23 11:17:00) Eagle Auto: 8.8 % (06/14/23 11:17:00) Eos Auto: 4.9 % (06/14/23:17:00) Basophil Auto: 1.1 % (06/14/23 11:17:00) Neutro Absolute: 3.7 E9/L (06/14/23 11:17:00) Lymph Absolute: 1.4 E9/L (06/14/23 11:17:00) Eagle Absolute: 0.5 E9/L (06/14/23 11:17:00) Eos Absolute: 0.3 E9/L (06/14/23 11:17:00) Basophil Absolute: 0.1 E9/L (06/14/23 11:17:00) Glucose Lvl: 219 mg/dL High (06/14/23 11:17:00) BUN: 14 mg/dL (06/14/23 11:17:00) Creatinine: 1.2 mg/dL (06/14/23 11:17:00) eGFR: >60 (06/14/23 11:17:00) BUN/Creat Ratio: 12 (06/14/23 11:17:00) Sodium Lvl: 141 mmol/L (06/14/23 11:17:00) Potassium Lvl: 2.9 mmol/L Low (06/14/23 11:17:00) Chloride: 100 mmol/L Low (06/14/23 11:17:00) CO2: 31 mmol/L (06/14/23 11:17:00) AGAP: 13 mEq/L (06/14/23 11:17:00) Calcium Lvl: 7 mg/dL Critical (06/14/23 11:17:00) Alk Phos: 90 Int._Unit/L (06/14/23 11:17:00) ALT: 20 Int._Unit/L (06/14/23 11:17:00) AST: 15 Int._Unit/L (06/14/23 11:17:00) Total Protein: 6.7 gm/dL (06/14/23 11:17:00) Albumin Lvl: 3.9 gm/dL (06/14/23 11:17:00) Globulin: 2.8 gm/dL (06/14/23 11:17:00) A/G Ratio: 1.4 (06/14/23 11:17:00) Bili Total: 0.8 mg/dL (06/14/23 11:17:00) Lipase Lvl: 31 unit/L (06/14/23 11:17:00) Magnesium: <0.5 Critical (06/14/23 11:17:00) Ethanol Lvl: <10 High (06/14/23 15:12:00) Glucose Cap: 165 mg/dL High (06/14/23 16:04:00) POC Device SN: [id number] (06/14/23 16:04:00) POC User ID: [id number] (06/14/23 16:04:00) POC Username: POC Username (06/14/23 16:04:00) Assessment/Plan PLAN: 1. Dizziness (R42: Dizziness and giddiness) Likely secondary to electrolyte imbalance of potassium, magnesium and calcium. Meclizine as needed UA pending 2. Hypokalemia (E87.6: Hypokalemia) Potassium level was 2.7 w repeat before tx 2.9 Given 40mEq KCL in ED. Trend labs and replace as necessary Hold HCTZ lisinopril combo for now 3. Hypomagnesemia (E83.42: Hypomagnesemia) Magnesium level <0.5 in the ED. Given 4gr IV Mag in ED Trend labs and replace as necessary. 4. Hypocalcemia (E83.51: Hypocalcemia) Replaced w/ 2gr CaGlu Trend labs and replace as necessary 5. Urinary retention (R33.9: Retention of urine, unspecified) recent urinary ret (more content not included)... [facility] Comment on above: Result Comment: Elec tronically Signed By: Maria D MCKAY\.br\Date and Time Signed: 06/14/23 16:34 EST\.br\Electronically Co-Signed By: Ranjan ROSS MD\.br\Date and Time Co-Signed: 06/16/23 08:44 EST 06-16-2023 Note Admission and Discha rge Information Admitting Physician - Ranjan ROSS MD Admitting Diagnoses: Anemia, 06/14/2023 Discharge Order Date Discharge Patient - Ordered -- 06/15/23 11:04:00 EST Discharge Diagnoses 1. Dizziness, 06/14/2023 2. Hypokalemia, 06/14/2023 3. Hypomagnesemia, 06/14/2023 4. Hypocalcemia, 06/14/2023 5. Urinary retention, 06/14/2023 6. Type 2 diabetes mellitus with hypercholesterolemia, 06/14/2023 7. Primary hypertension, 06/14/2023 8. Hypercholesterolemia, Pure hypercholesterolemia, unspecified 9. H/O ETOH abuse, 06/14/2023 10. History of nicotine use, 06/14/2023 11. Obesity, 06/14/2023 Abnormal diagnostic test, 06/14/2023 Anemia, 06/14/2023 Dizziness, 06/14/2023 Procedure History Arthroscopy, back surgery, Carpal tunnel release, hand and elbow surgery, Hand tendon repaired. Hospital Course 68-year-old male who presented to the hospital from his PCP office secondary symptomatic hypokalemia and hypomagnesemia. With complaints of dizziness secondary to electrolyte imbalance. Potassium level on admission was 2.7, magnesium level was less than 0.5 calcium level was 7.0. All of these electrolytes required multiple doses of IV piggyback replacement. Potassium level on 06/14 was 3.7 but did drop again to 3.0. Was given 60 mill equivalents p.o. potassium chloride today. Magnesium level was 1.4 today and was given another 4 g of IV piggyback mag sulfate. Calcium level is now normal. Admission patient did have alcohol level less than 10 but continues to deny alcohol intake x 2 months. Urinalysis was abnormal however urine culture was negative. They on exam patient is doing well. Vitals and labs are stable. 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 Patient medically states he misses several doses of his oral potassium. Patient was educated on importance of electrolyte replacement while taking this medication. Patient was given prescription for potassium chloride 10 mEq to take daily he takes his HCTZ/lisinopril. Patient was also given prescription for mag oxide. I did call and discuss above treatment with patient's PCP Dr. Josefina Grace who is in agreement with above treatment plan. Will see patient in follow-up appointment and obtain lab work at that time. Patient requested to be referred to Dr. Venita ISAAC for follow-up colonoscopy for 10-year visit. Case was discussed with Dr. Ross who is in agreement with current discharge plan. Patient discharged home in stable condition. Physical Exam Vitals & Measurements T: 36.4 ?C(Oral) TMIN: 36.3 ?C(Oral) TMAX: 36.7 ?C(Oral) HR: 76(Monitored) RR: 18 BP: 150/82 SpO2: 99% HT: 175.26 cm WT: 105.5 kg General: NAD Head: Normocephalic, atraumatic Neck: Supple, nontender, No JVD Eye: PERRLA, EOMI 3mm non icteric. ENT: Rhinophyma noted to nose. Moist mucus membranes Cardiovascular: Regular rate and rhythm. No edema, normal peripheral perfusion Respiratory: Clear upper lobes with diminished bases. No respiratory distress no accessory muscle use no obvious audible wheezing Musculoskeletal: normal ROM, no deformity, no swelling GI: Soft no obvious distention. No rebound or rigidity. No guarding. No tenderness. Skin: Sallow, Warm, dry, no pallor noted. vascular discoloration noted to bilateral lower legs. Neurological: A&O x 3; speech clear; moves all extremities equal strength and symmetry. no tremors. Psychiatric: Cooperative and appropriate Laboratory Results Automated Diff (06/14/2023) Neutro Auto - 61.4 % Lymph Auto - 23.8 % Eagle Auto - 8.8 % Eos Auto - 4.9 % Basophil Auto - 1.1 % Neutro Absolute - 3.7 E9/L Lymph Absolute - 1.4 E9/L Eagle Absolute - 0.5 E9/L Eos Absolute - 0.3 E9/L Basophil Absolute - 0.1 E9/L BMP (06/14/2023) Glucose Lvl - 177 mg/dL BUN - 13 mg/dL Creatinine - 1.2 mg/dL BUN/Creat Ratio - 11 Sodium Lvl - 144 mmol/L Potassium Lvl - 3.7 mmol/L Chloride - 105 mmol/L CO2 - 31 mmol/L AGAP - 12 mEq/L Calcium Lvl - 7.6 mg/dL Capillary Glucose POC (06/15/2023) Glucose Cap - 201 mg/dL POC Device SN - [id number] POC User ID - [id number] POC Username - BRYAN WONG CBC w/ Auto Diff (06/14/2023) WBC - 6.0 E9/L RBC - 4.3 E12/L Hgb - 13.1 gm/dL Hct - 39.5 % MCV - 92.3 fL MCH - 30.6 pg MCHC - 33.1 gm/dL RDW - 13.2 % Platelet - 235.0 E9/L MPV - 7.9 fL CMP (06/14/2023) Glucose Lvl - 219 mg/dL BUN - 14 mg/dL Creatinine - 1.2 mg/dL BUN/Creat Ratio - 12 Sodium Lvl - 141 mmol/L Potassium Lvl - 2.9 mmol/L Chloride - 100 mmol/L CO2 - 31 mmol/L AGAP - 13 mEq/L Calcium Lvl - 7.0 mg/dL Alk Phos - 90 Int._Unit/L ALT - 20 Int._Unit/L AST - 15 Int._Unit/L Total Protein - 6.7 gm/dL Albumin Lvl - 3.9 gm/dL Globulin - 2.8 gm/dL A/G Ratio - 1.4 Bili Total - 0.8 mg/dL eGFR (06/14/2023) eGFR - >60 mL/min/1.73 m2 Electrolyte Panel (06/15/2023) Sodium Lvl - 142 mmol/L Potassium Lvl - 3.0 mmol/L Chloride - 104 mmol/L CO2 - 28 mmol/L AGAP - 13 mEq/L (more content not included)... [facility] Comment on above: Result Comment: Elec tronically Signed By: Maria D MCKAY\.br\Date and Time Signed: 06/15/23 11:55 EST\.br\Electronically Co-Signed By: Ranjan ROSS MD\.br\Date and Time Co-Signed: 06/16/23 08:43 EST 06-13-2019 Evaluation + Plan note Future Appointments Appointment Date:06/09/2023 08:00:00 AM Scheduled Provider: Location:.[facility] Appointment Type:CV Echo () Appointment Date:06/13/2023 08:00:00 AM Scheduled Provider:Jose Grace MD Location:[facility] Appointment Type:FM Open Appointment Date:07/11/2023 09:00:00 AM Scheduled Provider:Manolo ALLEN MD Location:[facility] Appointment Type:URO New Patient Appointment Date:07/27/2023 02:00:00 PM Scheduled Provider: Location:[facility] Appointment Type:FM Medicare Wellness Subsequent Appointment Date:07/27/2023 02:40:00 PM Scheduled Provider:Jose Grace MD Location:[facility] Appointment Type: Open Future Scheduled TestsEcho Transthoracic Complete 06/09/23 [facility] Evaluation + Plan note Future Appointments Appointment Date:07/27/2023 02:00:00 PM Scheduled Provider: Location:[facility] Appointment Type: Medicare Wellness Subsequent Appointment Date:07/27/2023 02:40:00 PM Scheduled Provider:Jose Grace MD Location:[facility] Appointment Type: Open [facility] Evaluation + Plan note Future Appointments Appointment Date:05/16/2023 07:20:00 AM Scheduled Provider:Jose Grace MD Location:[facility]ue Appointment Type:FM Open Appointment Date:07/27/2023 02:00:00 PM Scheduled Provider: Location:[facility] Appointment Type:FM Medicare Wellness Subsequent Appointment Date:07/27/2023 02:40:00 PM Scheduled Provider:Jose Grace MD Location:[facility] Appointment Type: Open [facility] Evaluation + Plan note Future Appointments Appointment Date:05/16/2023 07:20:00 AM Scheduled Provider:Jose Grace MD Location:[facility]ue Appointment Type: Open Appointment Date:07/27/2023 02:00:00 PM Scheduled Provider: Location:[facility] Appointment Type: Medicare Wellness Subsequent Appointment Date:07/27/2023 02:40:00 PM Scheduled Provider:Jose Grace MD Location:[facility] Appointment Type:FM Open Diagnostic Tests PendingUrine Culture 04/04/23 [facility] Evaluation + Plan note Future Appointments Appointment Date:07/11/2023 09:00:00 AM Scheduled Provider:Manolo ALLEN MD Location:[facility] Appointment Type:URO New Patient Appointment Date:07/27/2023 02:00:00 PM Scheduled Provider: Location:[facility] Appointment Type: Medicare Wellness Subsequent Appointment Date:07/27/2023 02:40:00 PM Scheduled Provider:Jose Grace MD Location:[facility] Appointment Type:FM Open Diagnostic Tests PendingUrine Culture 05/16/23 Future Scheduled TestsEcho Transthoracic Complete 05/16/23 [facility] Evaluation + Plan note Future Appointments Appointment Date:05/27/2023 08:20:00 AM [facility]uled [facility] Appointment Date:06/09/2023 08:00:00 AM Scheduled [facility] Echo () Appointment Date:06/13/2023 08:00:00 AM Scheduled Provider:Jose Grace MD Location:[facility] Appointment Type:FM Open Appointment Date:07/11/2023 09:00:00 AM Scheduled Provider:Manolo ALLEN MD Location:[facility] Appointment Type:URO New Patient Appointment Date:07/27/2023 02:00:00 PM Scheduled Provider: Location:[facility] Appointment Type: Medicare Wellness Subsequent Appointment Date:07/27/2023 02:40:00 PM Scheduled Provider:Jose Grace MD Location:[facility] Appointment Type: Open Diagnostic Tests PendingUrine Culture 05/26/23 Future Scheduled TestsBasic Metabolic Panel 05/26/23Echo Transthoracic Complete 06/09/23 [facility] Evaluation + Plan note Future Appointments Appointment Date:06/13/2023 08:00:00 AM Scheduled Provider:Jose Grace MD Location:[facility] Appointment Type: Open Appointment Date:06/29/2023 10:15:00 AM Scheduled Provider:Kristel Tolentino MD Location:[facility] Appointment Type:URO New Patient Appointment Date:07/25/2023 02:00:00 PM Scheduled Provider: Location:[facility] Appointment Type: Medicare Wellness Subsequent Appointment Date:07/25/2023 03:00:00 PM Scheduled Provider:Jose Grace MD Location:[facility] + Plan note Future Appointments Appointment Date:06/29/2023 10:15:00 AM Scheduled Provider:Kristel Tolentino MD Location:[facility] Appointment Type:URO New Patient Appointment Date:07/14/2023 10:00:00 AM Scheduled Provider:Jose Grace MD Location:[facility] Appointment Type: Open Appointment Date:07/15/2023 02:00:00 PM Scheduled Provider:Troy Coulter MD [facility] [place] Appoint[facility] Type:Cardiology New Patient (FT) Appointment Date:07/25/2023 02:00:00 PM Scheduled Provider: Location:[facility] Appointment Type: Medicare Wellness Subsequent Appointment Date:07/25/2023 03:00:00 PM Scheduled Provider:Jose Grace MD Location:[facility] + Plan note Future Appointments Appointment Date:06/22/2023 10:30:00 AM Scheduled [facility] Nurse [facility] Appointment Date:06/28/2023 07:45:00 AM Scheduled Provider:Jose Grace MD Location:[facility] Appointment Type: Hospital Follow Up w/TCM Appointment Date:07/14/2023 10:00:00 AM Scheduled Provider:Jose Grace MD Location:[facility] Appointment Type: Open Appointment Date:07/15/2023 02:00:00 PM Scheduled Provider:Troy Coulter MD [facility] [place] Appointment Type:Cardiology New Patient (FT) Appointment Date:07/25/2023 02:00:00 PM Scheduled Provider: Location:[facility] Appointment Type: Medicare Wellness Subsequent Appointment Date:07/25/2023 03:00:00 PM Scheduled Provider:Jose Grace MD Location:[facility] Appointment Type: Open [facility] Evaluation + Plan note Future Appointments Appointment Date:06/23/2023 08:00:00 AM Scheduled [facility] Nurse Visit Appointment Date:06/28/2023 07:45:00 AM Scheduled Provider:Jose Grace MD Location:[facility] Appointment Type: Hospital Follow Up w/TCM Appointment Date:07/14/2023 10:00:00 AM Scheduled Provider:Jose Grace MD Location:[facility] Appointment Type: Open Appointment Date:07/15/2023 02:00:00 PM Scheduled Provider:Troy Coulter MD [facility] [place] Appointment Type:Cardiology New Patient (FT) Appointment Date:07/25/2023 02:00:00 PM Scheduled [facility] Medicare Wellness Subsequent Appointment Date:07/25/2023 03:00:00 PM Scheduled Provider:Jose Grace MD Location:[facility] Appointment Type: Open [facility] Evaluation + Plan note Future Appointments Appointment Date:06/28/2023 07:45:00 AM Scheduled Provider:Jose Grace MD Location:[facility] Appointment Type: Hospital Follow Up w/TCM Appointment Date:07/14/2023 10:00:00 AM Scheduled Provider:Jose Grace MD Location:[facility] Appointment Type: Open Appointment Date:07/15/2023 02:00:00 PM Scheduled Provider:Troy Coulter MD [facility] Appointment Type:Cardiology New Patient (FT) Appointment Date:07/25/2023 02:00:00 PM Scheduled Provider: Location:[facility] Appointment Type: Medicare Wellness Subsequent Appointment Date:07/25/2023 03:00:00 PM Scheduled Provider:Jose Grace MD Location:[facility] Appointment Type:[facility] Evaluation + Plan note Future Appointments Appointment Date:07/14/2023 10:00:00 AM Scheduled Provider:Jose rGace MD Location:[facility] Appointment Type: Open Appointment Date:07/15/2023 02:00:00 PM Scheduled Provider:Troy Coulter MD [facility] Appointment Type:Cardiology New Patient (FT) Appointment Date:07/25/2023 02:00:00 PM Scheduled Provider: Location:[facility] Appointment Type:FM Medicare Wellness Subsequent Appointment Date:07/25/2023 03:00:00 PM Scheduled Provider:Jose Grace MD Location:[facility] Appointment Type: Open Appointment Date:08/08/2023 02:00:00 PM Scheduled Provider: Location:[facility] Appointment Type:Urology FT Appointment Date:08/08/2023 03:00:00 PM Scheduled Provider: Location:[facility] Appointment Type:Urology FT [facility] Hospital course Narrative No data available for this section [facility] Hospital Discharge instructions No data available for this section [facility] Progress note No data available for this section [facility] Summary Purpose Family History No Family [...] and content) DATE CREATED AUTHOR 07/14/2022 [facility] DATE CREATED AUTHOR AUTHOR'S ORGANIZ ATION 07/13/2023 [facility] Patient Care team informatio n (unrecognized section and content) Personnel Name: Jose Grace MD Address: Address: [address] [place] [address] Personnel Name: Jose Grace MD Address: Address: [address] [place] [address] Personnel Name: Jose Grace MD Address: Address: [address] [place] [address] Personnel Name: Jose Grace MD Address: Address: [address] [place] [address] Personnel Name: Jose Grace MD Address: Address: [address] [place] [address] Personnel Name: Joes Grace MD Address: Address: [address] [place] [address] Personnel Name: Jose Grace MD Address: Address: [address] [place] [address] Personnel Name: Jose Grace MD Address: Address: [address] [place] [address] Personnel Name: Jose Grace MD Address: Address: [address] [place] [address] Personnel Name: Jose Grace MD Address: Address: [facility] [address] Personnel Name: Jose Grace MD Address: [facility] [address] Personnel Name: Jose Grace MD Address: Address: [facility] [address] FOR RECORDS PERTAINING TO PATIENTS WHO ARE [...] BE BASED ON THE PRIMARY CLINICAL RECORDS. [facility] [employer] [facility]. provides no warranty or guarantee of the accuracy or completeness of information in this document.
--- NOTE | 2023-07-14 08:20 | US_ITS ---
[address] [address] Patient Name: ALICJA REYES MRN: [id number] date: 1955 Sex: M Assigned Patient Location: US Current Patient Location: Accession/Order Number: [id number] Exam Date: 07/14/2023 08:21 Report Date: 07/14/2023 08:59 At the request of: YOEL OBREGON Procedure: US renal BI EXAMINATION: US renal BI HISTORY: Kidney Stone N20.0 COMPARISON: No relevant comparison available. TECHNIQUE: Ultrasound examination was performed of the bladder. FINDINGS: Right Kidney: Normal in size, contour and cortical echotexture. The cortex measures 1.5 cm. No solid cortical mass or hydronephrosis. Nonobstructing nephrolithiasis measuring up to 5 mm Height: 6.5 cm Length: 11.5 cm Width: 6.4 cm Left Kidney: Normal in size, contour and cortical echotexture. The cortex measures 1.6 cm. No solid cortical mass, hydronephrosis or obstructing nephrolithiasis Height: 6.3 cm Length: 13.6 cm Width: 5.6 cm The urinary bladder wall is thickened measuring 5 mm. Urinary bladder volume 848 mL. Dilation of the distal ureters measuring up to 1.2 x 1.8 cm on the right and 0.8 x 0.7 cm and the left US/US renal BI IMPRESSION: Dilatation of the distal ureters possibly related to bladder distention Bladder wall thickening and large bladder volume, consider bladder outlet obstruction Electronically authenticated by: RIC RAMOS Date: 07/14/2023 08:59
[2023-07-14 08:33] LABS: Estimated GFR (African America >60 (>=60); Estimated GFR (Non-African Ame 56 (>=60)
== END 2023-07-14 07:57 | disposition home or self-care (01) ==
LOC: US 07:57
PROVIDERS: PCP Family Medicine; Visit Provider Physician Assistant
DX: N20.0 Calculus of kidney (principal); N28.82 Megaloureter
CPT/HCPCS: 36415; 76775; 82565; 84520; 87086

== ENCOUNTER 2023-12-23 09:47 | Emergency (ER) | payer MEDICARE, OTHER, SELFPAY ==
[2023-12-23] VITALS (22 sets, daily range): BP systolic 146; BP diastolic 83; PULSE 72–94; TEMP 36.6; O2SAT 96–100; BMI 34.2
--- NOTE | 2023-12-23 10:14 | ECG_ITS ---
[facility] Test Date: 2023-12-23 Pat Name: ALICJA REYES Department: Room: - Gender: Male [employer]: : 1955 Requested By: NANCY GRACE Order Number: [id number] Reading MD: TRELL PRETTY Measurements Intervals [place] Rate: 81 P: -7 SC: 158 QRS: 40 QRSD: 86 T: 7 QT: 338 QTc: 375 Interpretive Statements 1100 Sinus rhythm 8102 Low QRS voltage in chest leads Non-Specific T wave inversion in III 9120 atypical ECG Compared to ECG 06/04/2023 12:56:12 Sinus tachycardia no longer present Myocardial infarct finding no longer present Electronically Signed On 12-26-2023 7:31:09 EDT by TRELL PRETTY
--- NOTE | 2023-12-23 10:23 | XR_ITS ---
The [address] [address] Patient Name: ALICJA REYES MRN: [id number] date: 1955 Sex: M Assigned Patient Location: ER Current Patient Location: ER Accession/Order Number: [id number] Exam Date: 12/23/2023 10:38 Report Date: 12/23/2023 10:59 At the request of: MABEL JAIME Procedure: XR chest 2V EXAM: Chest x-ray HISTORY: . dizzy . COMPARISON: 06/04/2023 TECHNIQUE: Single view of the chest FINDINGS: Heart and vascularity are unremarkable. Lungs are free of focal infiltrates. Atherosclerotic changes of the thoracic aorta are noted. There is a scoliotic deformity of the spine with convexity to the right. XR/XR chest 2V IMPRESSION: Acute heart or lung disease identified. Electronically authenticated by: RIC ANDRE Date: 12/23/2023 10:59
--- NOTE | 2023-12-23 10:26 | ED_ITS ---
HPI HPI - General Adult General Chief complaint: Recheck/Abnormal Lab/Rx Stated complaint: ABNORMAL LAB RESULT Time Seen by Provider: 12/23/23 10:16 Source: patient Mode of arrival: walk-in History of Present Illness HPI narrative: 68yo male who is presenting with dizziness, fatigue, weakness, and reported low magnesium levels per Dr. Melchor. Patient has longstanding history of low potassium, magnesium levels. Patient has not seen a specialist yet. Patient has had a lot of urology conditions recently, he has not seen any type of specialist for low electrolyte abnormalities. Patient has no chest pain or tig htness. No shortness of breath. No other significant complaints. Patient says that he will not be admitted to the hospital, he is here just to get replacement magnesium as recommended by Dr. Melchor. REVIEW OF SYSTEMS: Unless otherwise stated in this report the patient's positive and negative responses for review of systems for constitutional, eyes, ENT, cardiovascular, respiratory, gastrointestinal, neurological, , musculoskeletal, and integument systems and related systems to the presenting problem are either stated in the history of present illness or were not pertinent or were negative for the symptoms and/or complaints related to the presenting medical problem vital signs reviewed and patient is not hypoxic. General: The patient appears well and in no apparent distress. Patient is resting comfortably on cart. Not toxic, lethargic, or listless. Skin: Warm, dry, no pallor noted. There is no rash noted. Head: Normocephalic, atraumatic Eye: Normal conjunctiva, no drainage, EOMI. PERRL. Ears, Nose, Mouth, and Throat: oral mucosa is moist. Nares patent. Mouth without vesicles. Ear canals patent. Tm's without Erythema Cardiovascular: Regular Rate and Rhythm, no murmurs, gallops, or rubs Respiratory: Patient is in no distress, no accessory muscle use, lungs are clear to auscultation, no wheezing, rales or rhonchi Back: non-tender, no CVA tenderness bilaterally to percussion. NO CTLS midline or paracervicl tenderness to palpation. GI: Soft, obese, no tenderness to palpation, no masses appreciated. No rebound, guarding, or rigidity noted. Musculoskeletal: The patient has full range of motion of all extremities and joints with no difficulty. Patient has no motor, no sensory deficits. Neurological: A&O x4, normal speech, no focal neurological deficits. Psychiatric: Cooperative Related Data Home Medications ?Medication ?Instructions ?Recorded ?Confirmed atorvastatin 20 mg tablet 20 mg PO DAILY 05/23/23 05/23/23 glipizide 5 mg tablet 5 mg PO DAILY 05/23/23 05/23/23 lisinopril 20 1 tab PO DAILY 05/23/23 05/23/23 mg-hydrochlorothiazide 12.5 mg tablet metformin 500 mg tablet 500 mg PO BID 05/23/23 05/23/23 metoprolol tartrate 25 mg tablet 25 mg PO 05/23/23 omeprazole 40 mg capsule,delayed 40 mg PO DAILY 05/23/23 05/23/23 release Previous Rx's ?Medication ?Instructions ?Recorded ciprofloxacin HCl 500 mg tablet 500 mg PO Q12H #14 tabs 06/04/23 promethazine 25 mg tablet 12.5 mg (1/2 x 25 mg) PO TID PRN 06/04/23 nausea and vomiting #10 tabs tamsulosin 0.4 mg capsule (Flomax) 0.4 mg PO DAILY #20 caps 06/04/23 potassium chloride 20 mEq oral 20 meq PO BID 2 days #4 ea 06/05/23 packet Allergies Allergy/AdvReac Type Severity Reaction Status Date / Time No Known Drug Allergies Allergy Verified 05/23/23 09:02 Opioid HPI Opioid Management Most Recent Opioid Data: No Data to Display PFS PFS Social History Smoking status: Never smoker Exam Constitutional Vital Signs, click to edit/add: Last Vital Signs Temp 97.8 F 12/23/23 09:52 Pulse 92 H 12/23/23 13:20 Resp 52 H 12/23/23 13:30 BP 146/83 H 12/23/23 09:52 Pulse Ox 97 12/23/23 12:40 O2 Del Method Room Air 12/23/23 09:52 Course Vital Signs Vital signs: Vital Signs Temperature 97.8 F 12/23/23 09:52 Pulse Rate 93 H 12/23/23 09:52 Respiratory Rate 18 12/23/23 09:52 Blood Pressure 146/83 H 12/23/23 09:52 Pulse Oximetry 100 12/23/23 09:52 Oxygen Delivery Method Room Air 12/23/23 09:52 Temperature 97.8 F 12/23/23 09:52 Pulse Rate 92 H 12/23/23 13:20 Respiratory Rate 52 H 12/23/23 13:30 Blood Pressure 146/83 H 12/23/23 09:52 Pulse Oximetry 97 12/23/23 12:40 Oxygen Delivery Method Room Air 12/23/23 09:52 Medical Decision Making MDM Narrative Medical decision making narrative: Patient magnesium level 0.3. Patient was given magnesium 800 mg tablet and 4 g IV. Patient understands recommendation that he absolutely should be admitted to the hospital for continued magnesium replacement, repeat electrolytes and testing in the morning. Patient has not seen a specialist of curator of photography and prints, GI specialist, or kidney specialist to evaluate further why patient is having malabsorption or electrolyte abnormalities. Patient has been spending a lot of time with urology recently. Patient is leaving AGAINST MEDICAL ADVICE. He understands the recommendation that he should be admitted to the hospital. Patient says he has too much to do this weekend, he is not being admitted to the hospital. The patient is oriented to person, place, and time, demonstrating all burris elements of capacity to make decisions regarding the medical care offered. The patient speaks coherently and exhibits no evidence of having an altered level of consciousness or alcohol or drug intoxication to a point that would impair ability to delineate a choice. He/she is able to ambulate without difficulty. The patient demonstrates understanding and appreciation of the relevant information of the nature their medical condition, as well as the risks, benefits, and treatment alternatives (including nontreatment), Consequences of refusing care, and can appropriately communicative rational reasoning about their choice of care options. Patient is aware of a suspected diagnosis suggested by history and exam. The risks of refusing recommended care that were disclosed and acknowledged by the patient including , unforeseen complications, neurological dysfunction, permanent mental impairment, loss of limb, loss of sexual function, loss of current lifestyle, worsening chronic condition, long-term disability were disclosed. The patient understands they are welcome to return to the hospital anytime to receive the recommended care or any other care at any time, regardless of their ability to pay for such care. Discharge instructions were provided to the patient along with necessary prescriptions if indicated. Lab Data Lab results reviewed: Yes I reviewed the patient's lab results Labs: Lab Results 12/23/23 12/23/23 Range/Units 10:25 10:52 WBC 6.5 (4.0-11.0) 10^3/uL RBC 3.81 L (4.70-6.10) 10^6/uL Hgb 12.5 L (14.0-18.0) g/dL Hct 37.3 L (42.0-54.0) % MCV 97.9 H (80.0-94.0) fL MCH 32.8 (25.9-34.0) pg MCHC 33.5 (29.9-35.2) g/dL RDW 12.4 (11.0-15.0) % Plt Count 218 (150-450) 10^3/uL MPV 9.6 (9.5-13.5) fL Neut % (Auto) 63.1 (43.0-75.0) % Lymph % (Auto) 22.4 (20.5-60.0) % [place] % (Auto) 10.8 (1.7-12.0) % Eos % (Auto) 2.3 (0.9-7.0) % Baso % (Auto) 0.8 (0.2-2.0) % Neut # (Auto) 4.1 (1.4-6.5) 10^3/uL Lymph # (Auto) 1.5 (1.2-3.8) 10^3/uL [place] # (Auto) 0.7 (0.3-0.8) 10^3/uL Eos # (Auto) 0.2 (0.0-0.7) 10^3/uL Baso # (Auto) 0.1 (0.0-0.1) 10^3/uL Abs Immat Gran (auto) 0.04 H (0.00-0.03) 10^3/uL Imm/Tot Granulo (auto) 0.6 H (0.0-0.5) % Sodium 139 (136-145) mmol/L Potassium 3.7 (3.5-5.1) mmol/L Chloride 100 (98-107) mmol/L Carbon Dioxide 26.6 (21.0-32.0) mmol/L Anion Gap 16.1 BUN 19.0 H (7.0-18.0) mg/dL Creatinine 1.67 H (0.70-1.30) mg/dL Est GFR ( Amer) 50 L (>=60) Est GFR (Non-Af Amer) 41 L (>=60) BUN/Creatinine Ratio 11.4 Glucose 140 H (74-106) mg/dL Calcium 7.7 L (8.5-10.1) mg/dL Magnesium 0.3 L* (1.8-2.4) mg/dL Total Bilirubin 1.0 (0.2-1.0) mg/dL AST 24 (15-37) U/L ALT 32 (16-63) U/L Alkaline Phosphatase 82 (46-116) U/L Troponin I High Sens 10.2 (4.0-76.1) pg/mL NT-Pro-B Natriuret Pep 65.0 (<=900.0) pg/mL Total Protein 7.4 (6.4-8.2) g/dL Albumin 3.9 (3.4-5.0) g/dL Globulin 3.5 g/dL Albumin/Globulin Ratio 1.1 Lipase 49.0 (16.0-77.0) U/L Patient is aware that his magnesium is critically low, he has low calcium level s, slightly chronic elevated BUN and creatinine, along with mild anemia. ECG Data Attestation: I personally reviewed and interpreted this ECG as follows: (EKG reading. NSR at 81bpm, NAD, QTc 375, no STEMI) Discharge Plan Discharge Stand Alone Forms: Portal Instructions Chief Complaint: Recheck/Abnormal Lab/Rx Clinical Impression: Hypocalcemia, Dizziness, Left against medical advice, Hypomagnesemia Patient Disposition: Left Against Medical Advice Time of Disposition Decision: 13:17 Condition: Fair Prescriptions / Home Meds: No Action glipizide 5 mg tablet 5 mg PO DAILY lisinopril-hydrochlorothiazide 20-12.5 mg tablet 1 tab PO DAILY metformin 500 mg tablet 500 mg PO BID metoprolol tartrate 25 mg tablet 25 mg PO omeprazole 40 mg capsule,delayed release(DR/EC) 40 mg PO DAILY atorvastatin 20 mg tablet 20 mg PO DAILY promethazine 25 mg tablet 12.5 mg PO TID PRN (Reason: nausea and vomiting) Qty: 10 0RF Rx Instructions: 3 doses during day; last dose no later than 4 hr before bedtime ciprofloxacin HCl 500 mg tablet 500 mg PO Q12H Qty: 14 0RF tamsulosin [Flomax] 0.4 mg capsule 0.4 mg PO DAILY Qty: 20 0RF potassium chloride 20 mEq packet 20 meq PO BID 2 Days Qty: 4 0RF Print Language: Spanish Instructions: Hypocalcemia (ED), Hypomagnesemia (ED), Lightheadedness (ED), Dizziness (ED), Against Medical Advice (ED) Additional Instructions: See Dr Melchor at scheduled apt for chronic electrolyte abnormality and referral to specialist if indicated Take Magnesium 800mg 3 times a day for next 4-5 days Referrals: NANCY MELCHOR [Primary Care Provider] - 1 week Discharge Date/Time: 12/23/23 14:03
[2023-12-23 10:36] LABS: Basophils Absolute Auto 0.1 10^3/uL (0.0-0.1); Basophils Percent Auto 0.8 % (0.2-2.0); Eosinophils Absolute Auto 0.2 10^3/uL (0.0-0.7); Eosinophils Percent Auto 2.3 % (0.9-7.0); Hematocrit 37.3 % (42.0-54.0); Hemoglobin 12.5 g/dL (14.0-18.0); Immature Granulocytes Abs Auto 0.04 10^3/uL (0.00-0.03); Immature Granulocytes Pct Auto 0.6 % (0.0-0.5); Lymphocytes Absolute Auto 1.5 10^3/uL (1.2-3.8); Lymphocytes Percent Auto 22.4 % (20.5-60.0); Mean Corpuscular HGB Conc 33.5 g/dL (29.9-35.2); Mean Corpuscular Hemoglobin 32.8 pg (25.9-34.0); Mean Corpuscular Volume 97.9 fL (80.0-94.0); Mean Platelet Volume 9.6 fL (9.5-13.5); Monocytes Absolute Auto 0.7 10^3/uL (0.3-0.8); Monocytes Percent Auto 10.8 % (1.7-12.0); Neutrophils Absolute Auto 4.1 10^3/uL (1.4-6.5); Neutrophils Percent Auto 63.1 % (43.0-75.0); Platelet Count 218 10^3/uL (150-450); Red Blood Count 3.81 10^6/uL (4.70-6.10); Red Cell Distribution Width 12.4 % (11.0-15.0); White Blood Count 6.5 10^3/uL (4.0-11.0)
[2023-12-23] MEDS: 0.9 % SODIUM CHLORIDE 1,000 ML 1000 ML IV (10:48)
[2023-12-23 11:47] LABS: Alanine Aminotransferase 32 U/L (16-63); Albumin Globulin Ratio 1.1; Albumin Level 3.9 g/dL (3.4-5.0); Alkaline Phosphatase 82 U/L (46-116); Anion Gap 16.1; Aspartate Amino Transferase 24 U/L (15-37); BUN Creatinine Ratio 11.4; Calcium 7.7 mg/dL (8.5-10.1); Carbon Dioxide 26.6 mmol/L (21.0-32.0); Chloride 100 mmol/L (98-107); Estimated GFR (African America 50 (>=60); Estimated GFR (Non-African Ame 41 (>=60); Globulin 3.5 g/dL; Glucose 140 mg/dL (74-106); Potassium 3.7 mmol/L (3.5-5.1); Sodium 139 mmol/L (136-145); Total Protein 7.4 g/dL (6.4-8.2); Troponin I High Sensitivity 10.2 pg/mL (4.0-76.1)
[2023-12-23 11:59] LABS: Magnesium 0.3 mg/dL (1.8-2.4)
[2023-12-23] MEDS: MAGNESIUM OXIDE 400 MG TABLET 800 MG PO (12:43)
[2023-12-23] MEDS: MAGNESIUM SULFATE IN WATER 2 GM/50 ML PREMIX IV ×2 (12:48→12:52)
== END 2023-12-23 14:03 | disposition left against medical advice (07) ==
PROVIDERS: Emergency Provider Emergency Medicine; PCP Family Medicine
DX: E83.42 Hypomagnesemia (principal); E83.51 Hypocalcemia; R42 Dizziness and giddiness; Z53.29 Procedure and treatment not carried out because of patient's decision for other reasons
CPT/HCPCS: 36415; 71046; 80053; 81001; 83690; 83735; 83880; 84484; 85025; 93005; 96361; 96365; 99285; J3475

== ENCOUNTER 2024-01-31 08:26 | Emergency (ER) | payer MEDICARE, OTHER, SELFPAY ==
[2024-01-31 08:29] VITALS: BP 168/92; PULSE 94; TEMP 37.1; O2SAT 97; BMI 34.0
--- NOTE | 2024-01-31 08:38 | ECG_ITS ---
[facility] Test Date: 2024-01-31 Pat Name: ALICJA REYES Department: Room: - Gender: Male [employer] Automatic: : 1955 Requested By: NANCY GRACE Order Number: [id number] Reading MD: STEPHEN NGUYỄN Measurements Intervals [place] Rate: 82 P: 34 VA: 170 QRS: 32 QRSD: 76 T: 24 QT: 358 QTc: 397 Interpretive Statements 1100 Sinus rhythm 3233 Anteroseptal myocardial infarction, probably old 8102 Low QRS voltage in chest leads 9150 abnormal ECG Electronically Signed On 01-31-2024 22:22:34 EDT by STEPHEN NGUYỄN
[2024-01-31 08:54] LABS: Basophils Absolute Auto 0.1 10^3/uL (0.0-0.1); Eosinophils Absolute Auto 0.1 10^3/uL (0.0-0.7); Eosinophils Percent Auto 1.9 % (0.9-7.0); Hematocrit 34.3 % (42.0-54.0); Hemoglobin 11.9 g/dL (14.0-18.0); Immature Granulocytes Abs Auto 0.02 10^3/uL (0.00-0.03); Immature Granulocytes Pct Auto 0.3 % (0.0-0.5); Lymphocytes Absolute Auto 1.5 10^3/uL (1.2-3.8); Lymphocytes Percent Auto 23.8 % (20.5-60.0); Mean Corpuscular HGB Conc 34.7 g/dL (29.9-35.2); Mean Corpuscular Hemoglobin 33.8 pg (25.9-34.0); Mean Corpuscular Volume 97.4 fL (80.0-94.0); Mean Platelet Volume 9.2 fL (9.5-13.5); Monocytes Absolute Auto 0.6 10^3/uL (0.3-0.8); Monocytes Percent Auto 10.3 % (1.7-12.0); Neutrophils Absolute Auto 3.9 10^3/uL (1.4-6.5); Neutrophils Percent Auto 62.7 % (43.0-75.0); Platelet Count 205 10^3/uL (150-450); Red Blood Count 3.52 10^6/uL (4.70-6.10); Red Cell Distribution Width 12.6 % (11.0-15.0); White Blood Count 6.2 10^3/uL (4.0-11.0)
[2024-01-31] MEDS: MAGNESIUM SULFATE IN WATER IV (08:57)
[2024-01-31 09:12] LABS: Alanine Aminotransferase 22 U/L (16-63); Albumin Globulin Ratio 1.3; Albumin Level 3.6 g/dL (3.4-5.0); Alkaline Phosphatase 83 U/L (46-116); Anion Gap 16.5; Aspartate Amino Transferase 14 U/L (15-37); BUN Creatinine Ratio 8.8; Calcium 7.7 mg/dL (8.5-10.1); Carbon Dioxide 22.7 mmol/L (21.0-32.0); Chloride 103 mmol/L (98-107); Estimated GFR (African America >60 (>=60); Estimated GFR (Non-African Ame 52 (>=60); Globulin 2.8 g/dL; Glucose 245 mg/dL (74-106); Potassium 4.2 mmol/L (3.5-5.1); Sodium 138 mmol/L (136-145); Total Protein 6.4 g/dL (6.4-8.2)
[2024-01-31 09:16] LABS: Magnesium 0.3 mg/dL (1.8-2.4)
--- NOTE | 2024-01-31 09:41 | ED_ITS ---
HPI HPI - General Adult General Chief complaint: Recheck/Abnormal Lab/Rx Stated complaint: ABNORMAL LAB RESULT Time Seen by Provider: 01/31/24 08:34 Source: patient Mode of arrival: walk-in History of Present Illness HPI narrative: Patient presents to ED for abnormal labs. He had labs drawn by his primary doctor and his magnesium came back low at 0.5. He denies any symptoms, no chest pain no shortness of breath no dizziness. Patient does have a history of low magnesium and he has been here in the past for the same. Patient is on magnesium supplements outpatient as well. Family doctor called and said he would be arriving, please replace his magnesium and reevaluate. Patient states that he will not stay overnight in the hospital so we are going to replace the magnesium here in the emergency room. He has no complaints Related Data Home Medications ?Medication ?Instructions ?Recorded ?Confirmed atorvastatin 20 mg tablet 40 mg PO DAILY 05/23/23 01/31/24 glipizide 5 mg tablet 5 mg PO DAILY 05/23/23 01/31/24 lisinopril 20 1 tab PO DAILY 05/23/23 01/31/24 mg-hydrochlorothiazide 12.5 mg tablet metformin 500 mg tablet 500 mg PO BID 05/23/23 01/31/24 metoprolol tartrate 25 mg tablet 25 mg PO Q12H 05/23/23 01/31/24 omeprazole 40 mg capsule,delayed 40 mg PO DAILY 05/23/23 01/31/24 release amlodipine 5 mg tablet 5 mg PO DAILY 01/31/24 01/31/24 lisinopril 40 mg tablet 40 mg PO DAILY 01/31/24 01/31/24 magnesium oxide 400 mg (241.3 mg 400 mg PO BID 01/31/24 01/31/24 magnesium) tablet Previous Rx's ?Medication ?Instructions ?Recorded ciprofloxacin HCl 500 mg tablet 500 mg PO Q12H #14 tabs 06/04/23 tamsulosin 0.4 mg capsule (Flomax) 0.4 mg PO DAILY #20 caps 06/04/23 potassium chloride 20 mEq oral 20 meq PO BID 2 days #4 ea 06/05/23 packet Allergies Allergy/AdvReac Type Severity Reaction Status Date / Time No Known Drug Allergies Allergy Verified 05/23/23 09:02 Opioid HPI Opioid Management Most Recent Opioid Data: No Data to Display Review of Systems ROS Status of ROS 10 or more systems reviewed and unremark able except as noted in history and below PFSH PFSH Social History Smoking status: Never smoker Exam Narrative Exam Narrative: General: alert, no acute distress Cardiovascular: regular rate and rhythm, normal peripheral perfusion. Respiratory: Lungs CTA, respirations non labored. Extremities: no deformity, no trauma. Neurological: oriented x 4, LOC appropriate for age. Constitutional Vital Signs, click to edit/add: Last Vital Signs Temp 98.8 F 01/31/24 08:29 Pulse 80 01/31/24 11:05 Resp 18 01/31/24 11:05 BP 150/79 H 01/31/24 11:05 Pulse Ox 100 01/31/24 11:05 O2 Del Method Room Air 01/31/24 11:05 Course Vital Signs Vital signs: Vital Signs Temperature 98.8 F 01/31/24 08:29 Pulse Rate 94 H 01/31/24 08:29 Respiratory Rate 16 01/31/24 08:29 Blood Pressure 168/92 H 01/31/24 08:29 Pulse Oximetry 97 01/31/24 08:29 Oxygen Delivery Method Room Air 01/31/24 08:29 Temperature 98.8 F 01/31/24 08:29 Pulse Rate 80 01/31/24 11:05 Respiratory Rate 18 01/31/24 11:05 Blood Pressure 150/79 H 01/31/24 11:05 Pulse Oximetry 100 01/31/24 11:05 Oxygen Delivery Method Room Air 01/31/24 11:05 Medical Decision Making MDM Narrative Medical decision making narrative: 4 g of magnesium were infused. Recheck on the magnesium level came up to 1.4. Patient is supposed to be on 400 mg of magnesium twice a day. I told him to take a dose when he gets home and also another dose before bed and then continue on his twice a day as directed. He does need to follow-up with nephrology but he said he could not get in to the 1 that he was referred to in [place] he said the phone number was not working. I referred [facility] for nephrology follow-up as well as returning to the family doctor for follow-up. Return to emergency room if worsening symptoms or further concerns. Patient is comfortable care plan for home Differential Diagnosis Differential Diagnosis: Hypomagnesemia, cardiac arrhythmia, hypocalcemia Medical Records Medical records reviewed: Yes I reviewed the patient's medical records Lab Data Lab results reviewed: Yes I reviewed the patient's lab results Labs: Lab Results 01/31/24 01/31/24 Range/Units 08:46 10:51 WBC 6.2 (4.0-11.0) 10^3/uL RBC 3.52 L (4.70-6.10) 10^6/uL Hgb 11.9 L (14.0-18.0) g/dL Hct 34.3 L (42.0-54.0) % MCV 97.4 H (80.0-94.0) fL MCH 33.8 (25.9-34.0) pg MCHC 34.7 (29.9-35.2) g/dL RDW 12.6 (11.0-15.0) % Plt Count 205 (150-450) 10^3/uL MPV 9.2 L (9.5-13.5) fL Neut % (Auto) 62.7 (43.0-75.0) % Lymph % (Auto) 23.8 (20.5-60.0) % [place] % (Auto) 10.3 (1.7-12.0) % Eos % (Auto) 1.9 (0.9-7.0) % Baso % (Auto) 1.0 (0.2-2.0) % Neut # (Auto) 3.9 (1.4-6.5) 10^3/uL Lymph # (Auto) 1.5 (1.2-3.8) 10^3/uL [place] # (Auto) 0.6 (0.3-0.8) 10^3/uL Eos # (Auto) 0.1 (0.0-0.7) 10^3/uL Baso # (Auto) 0.1 (0.0-0.1) 10^3/uL Abs Immat Gran (auto) 0.02 (0.00-0.03) 10^3/uL Imm/Tot Granulo (auto) 0.3 (0.0-0.5) % Sodium 138 (136-145) mmol/L Potassium 4.2 (3.5-5.1) mmol/L Chloride 103 (98-107) mmol/L Carbon Dioxide 22.7 (21.0-32.0) mmol/L Anion Gap 16.5 BUN 12.0 (7.0-18.0) mg/dL Creatinine 1.37 H (0.70-1.30) mg/dL Est GFR ( Amer) >60 (>=60) Est GFR (Non-Af Amer) 52 L (>=60) BUN/Creatinine Ratio 8.8 Glucose 245 H (74-106) mg/dL Calcium 7.7 L (8.5-10.1) mg/dL Magnesium 0.3 L* 1.4 L (1.8-2.4) mg/dL Total Bilirubin 1.0 (0.2-1.0) mg/dL AST 14 L (15-37) U/L ALT 22 (16-63) U/L Alkaline Phosphatase 83 (46-116) U/L Total Protein 6.4 (6.4-8.2) g/dL Albumin 3.6 (3.4-5.0) g/dL Globulin 2.8 g/dL Albumin/Globulin Ratio 1.3 ECG Data Attestation: I personally reviewed and interpreted this ECG as follows: Interpretation: EKG INTERPRETATION Time: []833 Rate: []82 Rhythm: _ []Normal sinus rhythm ST segments: _ []No acute ST elevation or depression T waves: _ [] Ectopy: _ [] P wave/CT interval: _ [] QRS interval: _ [] QT interval: _ [] Comparison: _ [] Comparison EKG date: [] Performed by: [self] Discharge Plan Discharge Stand Alone Forms: Work/School Release, Portal Instructions Chief Complaint: Recheck/Abnormal Lab/Rx Clinical Impression: Hypomagnesemia Patient Disposition: Home, Self-Care Time of Disposition Decision: 11:16 Condition: Good Mode of Transportation: Private Vehicle Prescriptions / Home Meds: No Action glipizide 5 mg tablet 5 mg PO DAILY lisinopril-hydrochlorothiazide 20-12.5 mg tablet 1 tab PO DAILY metformin 500 mg tablet 500 mg PO BID metoprolol tartrate 25 mg tablet 25 mg PO Q12H omeprazole 40 mg capsule,delayed release(DR/EC) 40 mg PO DAILY atorvastatin 20 mg tablet 40 mg PO DAILY ciprofloxacin HCl 500 mg tablet 500 mg PO Q12H Qty: 14 0RF tamsulosin [Flomax] 0.4 mg capsule 0.4 mg PO DAILY Qty: 20 0RF potassium chloride 20 mEq packet 20 meq PO BID 2 Days Qty: 4 0RF amlodipine 5 mg tablet 5 mg PO DAILY magnesium oxide 400 mg (241.3 mg magnesium) tablet 400 mg PO BID lisinopril 40 mg tablet 40 mg PO DAILY Print Language: Yoruba Instructions: Hypomagnesemia (ED) Referrals: HUSSAIN GALLOWAY [Physician] - 1 week NANCY GRACE [Primary Care Provider] - 1 week
[2024-01-31 11:05] VITALS: BP 150/79; PULSE 80; O2SAT 100
[2024-01-31 11:09] LABS: Magnesium 1.4 mg/dL (1.8-2.4)
== END 2024-01-31 11:38 | disposition home or self-care (01) ==
PROVIDERS: Emergency Provider Emergency Medicine; PCP Family Medicine
DX: E83.42 Hypomagnesemia (principal)
CPT/HCPCS: 36415; 80053; 83735; 85025; 93005; 96365; 96366; 99284; J3475

== ENCOUNTER 2024-07-17 03:36 | Emergency (ER) | payer MEDICARE, OTHER, SELFPAY ==
[2024-07-17 03:40] VITALS: BP 163/81; PULSE 101; TEMP 36.6; O2SAT 99; BMI 36.9
--- OUTSIDE RECORDS SUMMARY | 2024-07-17 03:43 | XMS_ITS | CCD ---
Author Organization [facility] Care Team Providers Care Orthopaedic Physician Assistant Name Role Phone DR TYRESE ALEMAN Admitting Unavailable DR TYRESE ALEMAN Attending Unavailable DR TYRESE ALEMAN Primary Care Unavailable DR TYRESE ALEMAN Consulting Unavailable Jose Grace Primary Care Physician GINO Porter Attending Provider MD Jose Grace Primary Care Provider MD Jose Grace Primary Care Provider GINO Porter Attending Provider MD Bryant Tao Attending Provider [phone] Jose Grace Primary Care Unavailable Bryant Tao Admitting Unavailable Bryant Tao Attending Unavailable Ramandeep Porter Admitting Unavailable Ramandeep Porter Attending Unavailable Jose Grace Primary Care Unavailable MARINO KEARNS Attending Unavailable MARINO KEARNS Admitting Unavailable Jose Grace Attending Unavailable Jose Grace Attending Unavailable Jose Grace Admitting Unavailable Ok, Ramos Consulting Unavailable Artemio Olivares Admitting Unavailable Artemio Olivares Attending Unavailable MD Jose Grace Admitting Unavailable MD Jose Grace Attending Unavailable Ronny Cartagena Attending Unavailable Artemio Olivares Admitting Unavailable Artemio Olivares Attending Unavailable Ok, Ramos Consulting Unavailable MD Ok Ramos Consulting Unavailable Akkina, Ramos Consulting Unavailable Akkina, Ramos Consulting Unavailable Akkina, Ramos Consulting Unavailable Akkina, Ramos Consulting Unavailable Akkina, Ramos Consulting Unavailable Akkina, Ramos Consulting Unavailable Akkina, Ramos Consulting Unavailable MD Jose Grace Attending Unavailable Jose Grace EMalgorzata Attending Unavailable Ruiz, Jose E. Admitting Unavailable RossJose E. Attending Unavailable Ross Jose E. Admitting Unavailable RossJose E. Attending Unavailable Akkina, Ramos Admitting Unavailable Akkina, Ramos Attending Unavailable Jose Grace E. Attending Unavailable Ruiz Jose E. Admitting Unavailable Akkina, Ramos Attending Unavailable Akkina, Ramos Admitting Unavailable Unavailable Primary Care Provider UnavailCARLOS Hardin Attending Unavailable SHIRA, MARINO A Referring Unavailable Estefania Reddy Attending Unavailable Jose Grace EMalgorzata Attending Unavailable Jose Grace EMalgorzata Admitting Unavailable Jose Grace EMalgorzata Admitting Unavailable Jose Grace E. Attending Unavailable RAMANDEEP PORTER Attending Unavailable Troy Coulter Attending Unavaila Troy Chery Admitting Unavaila ble Jose Grace Attending Unavailable Jose Grace Attending Unavailable Jose Grace Attending Unavailable Jose Grace EMalgorzata Attending Unavailable SHIRA, MARINO A Attending Unavailable Jose Grace EMalgorzata Attending Unavailable SHIRA, MARINO A Attending Unavailable SHIRA, MARINO A Admitting Unavailable Jose Grace Attending Unavailable Jose Grace EMalgorzata Admitting Unavailable SHIRA, MARINO A Attending Unavailable SHIRA, MARINO A Admitting Unavailable Bryant TAO P Admitting Unavailable Bryant TAO Referring Unavailable Bryant TAO Attending Unavailable Troy Coulter Attending Unavaila ble Jose Grace Referring Unavailable Troy Coulter Attending Unavaila ble NONE, XXXX Referring Unavailable NONE, XXXX Referring Unavailable Javier Goins Attending Unavailable NONE, XXXX Referring Unavailable Jacinto Ramirez Attending Unavailable Bryant TAO P Admitting Unavailable COOK, Bryant P Referring Unavailable COOKBryant P Attending Unavailable Bryant TAO P Admitting Unavailable COOK, Bryant P Referring Unavailable EMMY, Bryant P Attending Unavailable Andrzej HENRY Consulting Unavailable Jose Grace EMalgorzata Attending Unavailable Jose Grace EMalgorzata Admitting Unavailable Jose Grace E. Referring Unavailable Andrzej HENRY Consulting Unavailable Andrzej HENRY Consulting Unavailable COOKBryant P Attending Unavailable COOKBryant P Attending Unavailable COOK, Bryant P Attending Unavailable Jose Grace Attending Unavailable Jose Grace Attending Unavailable Jose Grace Attending Unavailable MARINO KEARNS Attending Unavailable Jose Grace Admitting Unavailable Jose Grace Attending Unavailable Jose Grace Attending Unavailable MD Jose Grace Attending Unavailable MD Jose Grace Admitting Unavailable MD Jose Grace Attending Unavailable MD Jose Grace Admitting Unavailable MD Jose Grace Attending Unavailable Allergies Allergy Classification Reported Allergen(s) Allergy Type Date of Onset Reaction(s) Facility (11 sources) celecoxib; Translations: [CeleBREX] Drug Allergy [facility] Repository (1 source) Cetirizine Drug Allergy [facility] Rep[facility] (20 sources) celecoxib; Translations: [celecoxib] Drug Allergy Unknown (qualifier value), [facility] Current Medic[facility] Medication Drug Class(es) Dates Sig (Normalized) Sig (Original) acetaminophen 325 mg oral tablet (3 sources) Start: 12-30-2023 take 2 tablets by mouth every six hours as needed for pain acetaminophen 325 mg Tab 650 mg = 2 tab(s), Oral, q6hr, PRN Pain, Refills(s) 0 Start Date: 12/30/23 Status: Ordered amLODIPine 5 mg oral tablet (17 sources) Dihydropyridine Calcium Channel Pooja Start: 01-30-2024 amLODIPine 5 mg Tab See Instructions, TAKE 1 TABLET DAILY, # 90 tab(s), Refills(s) 1, Pharmacy: [facility], 175.3, cm, 01/13/24 9:06:00 EDT, Height/Length Dosing, 110.9, kg, 01/13/24 9:06:00 EDT, Weight Dosing Start Date: 01/30/24 Status: Ordered Start: 11-14-2023 amLODIPine 5 m g Tab See Instructions, TAKE 1 TABLET DAILY, # 90 tab(s), Refills(s) 1, Pharmacy: [facility], 172, cm, 10/19/23 8:14:00 EDT, Height/Length Dosing, 108.4, kg, 10/19/23 8:26:00 EDT, Weight Dosing Start Date: 11/14/23 Status: Ordered Start: 09-09-2023 take 10 mg by mouth once daily Amlodipine Active 10 MG PO Daily September 09, 2023 12:00am Start: 08-19-2023 take 2 tablets by [facility] Norvasc 5 mg Tab 10 mg = 2 tab(s), Oral, Daily, # 60 tab(s), Refills(s) 6, Pharmacy: [facility]/pharmacy #[id number], 172, cm, 08/19/23 11:59:00 EDT, Height/Length Dosing, 106, kg, 08/19/23 11:59:00 EDT, Weight Dosing Start Date: 08/19/23 Status: Ordered Start: 08-15-2023 take 1 tablet by [facility] once daily Norvasc 5 mg Tab 5 mg = 1 tab(s), Oral, Daily, # 90 tab(s), Refills(s) 0, Pharmacy: [facility], 172, cm, 08/15/23 7:04:00 EDT, Height/Length Dosing, 107.2, kg, 08/15/23 7:04:00 EDT, Weight Dosing Start Date: 08/15/23 Status: Ordered amoxicillin 500 mg oral capsule (2 sources) Penicillin-class Antibacterial Start: 01-05-2024 take 1 capsule by mouth every twelve hours amoxicillin 500 mg Cap 500 mg = 1 cap(s), Oral, q12hr, # 20 cap(s), Refills(s) 0, [id number], 175.3, cm, 01/05/24 7:50:00 EDT, Height/Length Dosing, 110, kg, 01/05/24 7:50:00 EDT, Weight Dosing Start Date: 01/05/24 Status: Ordered aspirin 81 mg delayed release oral tablet (19 sources) Platelet Aggregation Inhibitor, Nonsteroidal Anti-inflammatory Drug Start: 06-13-2023 take 1 tablet by mouth once daily aspirin 81 mg Oral EC Tab 81 mg = 1 tab(s), Oral, Daily, # 90 tab(s), Refills(s) 0, Pharmacy: [facility], 174.5, cm, 06/13/23 8:07:00 EST, Height/Length Dosing, 102.3, kg, 06/13/23 8:07:00 EST, Weight Dosing Start Date: 06/13/23 Status: Ordered atorvastatin 40 mg oral tablet (20 sources) HMG-CoA Reductase Inhibitor Start: 01-30-2024 take 1 tablet by mouth once daily atorvastatin 40 mg Tab 40 mg = 1 tab(s), Oral, Daily, # 90 tab(s), Refills(s) 1, Pharmacy: [facility], 175.3, cm, 01/13/24 9:06:00 EDT, Height/Length Dosing, 110.9, kg, 01/13/24 9:06:00 EDT, Weight Dosing Start Date: 01/30/24 Status: Ordered Start: 06-13-2023 take 1 tablet by marly th once daily atorvastatin 40 mg Tab 40 mg = 1 tab(s), Oral, Daily, # 90 tab(s), Refills(s) 1, Pharmacy: [facility], 174.5, cm, 06/13/23 8:07:00 EST, Height/Length Dosing, 102.3, kg, 06/13/23 8:07:00 EST, Weight Dosing Start Date: 06/13/23 Status: Ordered Start: 02-14-2023 take 1 tablet by marly th at bedtime atorvastatin 20 mg Tab 20 mg = 1 tab(s), Oral, Bedtime, # 90 tab(s), Refills(s) 1, Pharmacy: [facility], 174.5, cm, 02/14/23 7:27:00 EDT, Height/Length Dosing, 115.8, kg, 02/14/23 7:27:00 EDT, Weight Dosing Start Date: 02/14/23 Status: Ordered Start: 01-13-2023 take 1 tablet by marly th at bedtime atorvastatin 20 mg Tab 20 mg = 1 tab(s), Oral, Bedtime, Refills(s) 0 Start Date: 01/13/23 Status: Ordered ciprofloxacin 500 mg oral tablet (14 sources) Quinolone Antimicrobial Start: 12-22-2023 End: 12-29-2023 take 1 tablet by mouth every twelve hours Cipro 500 mg Tab 500 mg = 1 tab(s), Oral, q12hr, X 7 day(s), # 14 tab(s), Refills(s) 0, Pharmacy: [facility], 172, cm, 12/22/23 7:41:00 EDT, Height/Length Dosing, 107.8, kg, 12/22/23 7:41:00 EDT, Weight Dosing Start Date: 12/22/23 Stop Date: 12/29/23 Status: Ordered Start: 09-27-2023 Cipro 500 mg T ab See Instructions, Take 1 tab day prior to procedure and 1 tab day of procdure - afterwards, # 2 tab(s), Refills(s) 0, Pharmacy: [facility]/pharmacy #[id number], 174.5, cm, 09/22/23 12:37:00 EDT, Height/Length Dosing, 105.9, kg, 09/22/23 12:37:00 EDT, Weight Dosing Start Date: 09/27/23 Status: Ordered Start: 08-03-2023 take 1 tablet by marly th twice daily Cipro 500 mg Tab 500 mg = 1 tab(s), Oral, BID, start 3 days prior to procedure, # 14 tab(s), Refills(s) 0, Pharmacy: [facility]/pharmacy #[id number], 174.5, cm, 07/27/23 11:17:00 EST, Height/Length Dosing, 102.3, kg, 07/27/23 11:17:00 EST, Weight Dosing Start Date: 08/03/23 Status: Ordered Start: 06-28-2023 Cipro 500 mg T ab See Instructions, Take 1 tab day prior to procedure and 1 tab day of procdure - afterwards, # 2 tab(s), Refills(s) 0, Pharmacy: [facility]/pharmacy #[id number], 175.4, cm, 06/28/23 7:53:00 EST, Height/Length Dosing, 106.8, kg, 06/28/23 7:53:00 EST, Weight Dosing Start Date: 06/28/23 Status: Ordered Start: 04-04-2023 End: 2023 take 1 tablet by mouth every twelve hours Cipro 500 mg Tab 500 mg = 1 tab(s), Oral, q12hr, X 10 day(s), # 20 tab(s), Refills(s) 0 Start Date: 04/04/23 Stop Date: 04/14/23 Status: Ordered famotidine 20 mg oral tablet (2 sources) Histamine-2 Receptor Antagonist Start: 12-27-2023 take 1 tablet by mouth twice daily Pepcid 20 mg Tab 20 mg = 1 tab(s), Oral, BID, # 180 tab(s), Refills(s) 0, Pharmacy: [facility], 172, cm, 12/27/23 7:51:00 EDT, Height/Length Dosing, 109.8, kg, 12/27/23 7:51:00 EDT, Weight Dosing Start Date: 12/27/23 Status: Ordered Freestyle Alejandra 2 Flash Glucose Monitoring 14 Day System (Brinson) (6 sources) Start: 02-14-2023 Freestyle Libr e 2 Flash Glucose Monitoring 14 Day System (Brinson) Freestyle Alejandra 2 Flash Glucose Monitoring 14 Day System (Brinson), See Instructions, 1 EA, 0, Freestyle Alejandra Flash Glucose Monitoring 14 Day System (Brinson), [facility]acy #[id number], Supply, 174.5, cm, 02/14/23 7:27:00 EDT, [...] System (Sensor). Replace sensor every 14 days., [facility] #[id number], Supply, 174.5, cm, 02/14/23 7:27:00 EDT, Height/Length Dosing, 115.8, kg, 02/14/23 7:27:00 EDT, Weight Dosing Start Date: 02/14/23 Status: Ordered gabapentin 100 mg oral capsule (4 sources) Anti-epileptic Agent Start: 05-18-2024 take 1 capsule by mouth once daily at bedtime gabapentin 100 mg Cap 100 mg = 1 cap(s), Oral, Once a day (at bedtime), # 30 cap(s), Refills(s) 0, Pharmacy: [facility]/pharmacy #[id number], 175.3, cm, 05/18/24 7:58:00 EST, Height/Length Dosing, 112.1, kg, 05/18/24 7:58:00 EST, Weight Dosing Start Date: 05/18/24 Status: Ordered Start: 04-04-2017 End: 05-13-2017 take 1 capsule by mouth three times daily Gabapentin (Neurontin) 100 mg Capsule Discontinued 100 MG PO Three times daily April 04, 2017 12:00am May 13, 2017 10:09am glipiZIDE 5 mg oral tablet (20 sources) Sulfonylurea Start: 09-09-2023 take 5 mg by mouth once daily Glipizide Active 5 MG PO Daily September 09, 2023 12:00am Start: 05-26-2023 take 2 tablets by [facility] twice daily glipiZIDE 5 mg Tab 10 mg = 2 tab(s), Oral, BID, # 360 tab(s), Refills(s) 1, Pharmacy: [facility], 174.5, cm, 05/26/23 9:14:00 EST, Height/Length Dosing, 109.1, kg, 05/26/23 9:14:00 EST, Weight Dosing Start Date: 05/26/23 Status: Ordered Start: 05-16-2023 take 1 tablet by marly th twice daily glipiZIDE 5 mg Tab 5 mg = 1 tab(s), Oral, BID, # 90 tab(s), Refills(s) 1, Pharmacy: [facility], 174.5, cm, 05/16/23 7:26:00 EST, Height/Length Dosing, 113.4, kg, 05/16/23 7:26:00 EST, Weight Dosing Start Date: 05/16/23 Status: Ordered Start: 02-14-2023 take 1 tablet by marly th once daily glipiZIDE 5 mg Tab 5 mg = 1 tab(s), Oral, Daily, # 90 tab(s), Refills(s) 1, Pharmacy: [facility], 174.5, cm, 02/14/23 7:27:00 EDT, [...] mg / lisinopril 20 mg oral tablet (20 sources) Thiazide Diuretic, Angiotensin Converting Enzyme Inhibitor Start: 10-19-2023 hydrochlorothiazide-lisinopr il 12.5 mg-20 mg Tab 1 tab(s), Oral, Daily, 90 tab(s), Refill(s) 0, other reason (Rx) Start Date: 10/19/23 Status: Ordered Start: 05-18-2017 End: 09-09-2023 take 2 tablets by mouth once daily hydrochlorothiazide-lisinopril 12.5 mg-2 0 mg Tab 2 tab(s), Oral, Daily, 180 tab(s), Refill(s) 3, [facility], 174, cm, 07/26/23 10:21:00 EST, Height/Length Dosing, 104.8, kg, 07/26/23 10:21:00 EST, Weight Dosing Start Date: 07/26/23 Status: Ordered Start: 04-04-2017 End: 05-18-2017 take 1 tablet by mouth once daily Lisinopril-Hydrochlorothiazide Discontin ued 1 TAB PO Daily April 04, 2017 12:00am May 18, 2017 1:12pm levoFLOXacin 500 mg oral tablet (1 source) Quinolone Antimicrobial Start: 12-30-2023 End: 01-09-2024 take 1 tablet by mouth every twenty-four hours Levaquin 500 mg Tab 500 mg = 1 tab(s), Oral, q24hr, X 10 day(s), # 10 tab(s), Refills(s) 0, Pharmacy: [facility]acy #[id number], 172, cm, 12/29/23 13:54:00 EDT, Height/Length Dosing, 109.8, kg, 12/29/23 13:54:00 EDT, Weight Dosing Start Date: 12/30/23 Stop Date: 01/09/24 Status: Ordered lisinopril 40 mg oral tablet (8 sources) Angiotensin Converting Enzyme Inhibitor Start: 05-07-2024 take 1 tablet by mouth once daily lisinopril 40 mg Tab 40 mg = 1 tab(s), Oral, Daily, # 90 tab(s), Refills(s) 4, Pharmacy: [facility], 175.3, cm, 01/13/24 9:06:00 EDT, Height/Length Dosing, 110.9, kg, 01/13/24 9:06:00 EDT, Weight Dosing Start Date: 05/07/24 Status: Ordered Start: 01-30-2024 take 1 tablet by marly th once daily lisinopril 40 mg Tab 40 mg = 1 tab(s), Oral, Daily, # 90 tab(s), Refills(s) 0, Pharmacy: [facility], 175.3, cm, 01/13/24 9:06:00 EDT, Height/Length Dosing, 110.9, kg, 01/13/24 9:06:00 EDT, Weight Dosing Start Date: 01/30/24 Status: Ordered Start: 12-30-2023 take 1 tablet by marly once daily lisinopril 40 mg Tab 40 mg = 1 tab(s), Oral, Daily, # 30 tab(s), Refills(s) 0, Pharmacy: [facility]acy #[id number], 172, cm, 12/29/23 13:54:00 EDT, Height/Length Dosing, 109.8, kg, 12/29/23 13:54:00 EDT, Weight Dosing Start Date: 12/30/23 Status: Ordered Start: 12-30-2023 End: 12-30-2023 lisinopril 20 mg Tab 40 mg = 2 tab(s), Tab, Oral, NOW, Start date 12/30/23 12:26:00 PM EDT, 12/30/23 12:26:00 EDT Start Date: 12/30/23 Stop Date: 12/30/23 Status: Completed magnesium oxide 400 mg oral tablet (20 sources) Start: 02-20-2024 take 1 tablet by mouth three times daily magnesium oxide 400 mg Tab 400 mg, Oral, TID, dose change-last magnesium level completed 01/11/24-, # 30 tab(s), Refills(s) 3, Pharmacy: [facility]acy #[id number], 175.3, cm, 01/13/24 9:06:00 EDT, Height/Length Dosing, 110.9, kg, 01/13/24 9:06:00 EDT, Weight Dosing Start Date: 02/20/24 Status: Ordered Start: 01-30-2024 take 1 tablet by marly three times daily magnesium oxide 400 mg Tab 400 mg, Oral, TID, dose change-last magnesium level completed 01/11/24-, # 90 tab(s), Refills(s) 3, Pharmacy: [facility], 175.3, cm, 01/13/24 9:06:00 EDT, Height/Length Dosing, 110.9, kg, 01/13/24 9:06:00 EDT, Weight Dosing Start Date: 01/30/24 Status: Ordered Start: 12-30-2023 take 1 tablet by [facility] twice daily magnesium oxide 400 mg Tab 400 mg = 1 tab(s), Oral, BID, # 60 tab(s), Refills(s) 0, Pharmacy: [facility]acy #[id number], 172, cm, 12/29/23 13:54:00 EDT, Height/Length Dosing, 109.8, kg, 12/29/23 13:54:00 EDT, Weight Dosing Start Date: 12/30/23 Status: Ordered Start: 12-22-2023 take 1 tablet by [facility] once daily magnesium oxide 400 mg Tab 400 mg = 1 tab(s), Oral, Daily, # 60 tab(s), Refills(s) 0, Pharmacy: [facility], 172, cm, 12/22/23 7:41:00 EDT, Height/Length Dosing, 107.8, kg, 12/22/23 7:41:00 EDT, Weight Dosing Start Date: 12/22/23 Status: Ordered Start: 08-18-2023 take 1 tablet by [facility] once daily magnesium oxide 400 mg Tab 400 mg = 1 tab(s), Oral, Daily, # 60 tab(s), Refills(s) 0, Pharmacy: [facility] #[id number], 172, cm, 08/15/23 7:04:00 EDT, Height/Length Dosing, 107.2, kg, 08/15/23 7:04:00 EDT, Weight Dosing Start Date: 08/18/23 Status: Ordered Start: 06-15-2023 take 1 tablet by [facility] once daily magnesium oxide 400 mg Tab 400 mg = 1 tab(s), Oral, Daily, # 60 tab(s), Refills(s) 0, Pharmacy: [facility] #[id number], 175, cm, 06/14/23 10:52:00 EST, Height/Length Dosing, 102.3, kg, 06/14/23 10:52:00 EST, Weight Dosing Start Date: 06/15/23 Status: Ordered 24 hr metFORMIN hydrochloride 500 mg extended release oral tablet (20 sources) Biguanide Start: 04-12-2024 take 2 tablets by mouth twice daily Glucophage XR 500 mg Tab-ER 1,000 mg = 2 tab(s), Oral, BID, # 360 tab(s), Refills(s) 1, Pharmacy: [facility], 175.3, cm, 01/13/24 9:06:00 EDT, Height/Length Dosing, 110.9, kg, 01/13/24 9:06:00 EDT, Weight Dosing Start Date: 04/12/24 Status: Ordered Start: 07-26-2023 take 2 tablets by [facility] twice daily Glucophage XR 500 mg Tab-ER 1,000 mg = 2 tab(s), Oral, BID, # 360 tab(s), Refills(s) 1, Pharmacy: [facility], 174, cm, 07/26/23 10:21:00 EST, Height/Length Dosing, 104.8, kg, 07/26/23 10:21:00 EST, Weight Dosing Start Date: 07/26/23 Status: Ordered Start: 06-13-2023 take 2 tablets by [facility] twice daily Glucophage XR 500 mg Tab-ER 1,000 mg = 2 tab(s), Oral, BID, # 360 tab(s), Refills(s) 1, Pharmacy: [facility], 174.5, cm, 06/13/23 8:07:00 EST, Height/Length Dosing, 102.3, kg, 06/13/23 8:07:00 EST, Weight Dosing Start Date: 06/13/23 Status: Ordered Start: 11-15-2022 End: 11-10-2023 take 2 tablets by mouth once daily metformin 500 mg Tab 1,000 mg = 2 tab(s), Oral, Daily, X 90 day(s), # 180 tab(s), Refills(s) 3, Pharmacy: [facility] Start Date: 11/15/22 Stop Date: 11/10/23 Status: Ordered Start: 04-04-2017 take 500 mg by mouth twice daily Metformin Active 500 MG PO Twice daily April 04, 2017 12:00am 24 hr metoprolol succinate 25 mg extended release oral tablet (16 sources) beta-Adrenergic Pooja Start: 08-19-2023 take 1 tablet by mouth once daily metoprolol 25 mg ER Tab 25 mg = 1 tab(s), Oral, Daily, # 30 tab(s), Refills(s) 6, Pharmacy: [facility] #[id number], 172, cm, 08/19/23 11:59:00 EDT, Height/Length Dosing, 106, kg, 08/19/23 11:59:00 EDT, Weight Dosing Start Date: 08/19/23 Status: Ordered [facility] Prescription (20 sources) Start: 05-26-2023 Start: 05-26-2023 [facility] D[facility] Presc ription [facility] Prescription, See Instructions, 1 kit(s), 0, One Touch Ultra 2 glucose meter kit Use to tests sugars daily E11.9, [facility], Supply, 174.5, cm, 05/26/23 9:14:00 EST, Height/Length Dosing, 109.1, kg, 05/26/23 9:14:00 EST, Weight Dosing Start Date: 05/26/23 Status: Ordered Multiple Vitamins Tab (1 source) Start: 11-15-2012 take 1 tablet by mouth once daily Multiple Vitamins Tab 1 tab(s), Oral, Daily, Refill(s) 0, Prophylaxis Start Date: 11/15/12 Status: Ordered naproxen sodium 220 mg oral tablet (7 sources) Nonsteroidal Anti-inflammatory Drug Start: 01-13-2024 take 220 mg by mouth every twelve hours as needed Aleve 220 mg, Oral, q12hr, se as needed, Refills(s) 0 Start Date: 01/13/24 Status: Ordered Start: 05-13-2017 End: 05-19-2017 take 2 tablets by mouth twice daily Naproxen Sodium (Aleve) 220 mg Tablet Discontinued 440 MG PO Twice daily May 13, 2017 1:00am May 19, 2017 1:56pm omeprazole 20 mg delayed release oral capsule (20 sources) Proton Pump Inhibitor Start: 05-18-2024 take 1 capsule by mouth once daily omeprazole 20 mg Cap-DR 20 mg = 1 cap(s), Oral, Daily, # 90 cap(s), Refills(s) 0, Pharmacy: [facility]acy #[id number], 175.3, cm, 05/18/24 7:58:00 EST, Height/Length Dosing, 112.1, kg, 05/18/24 7:58:00 EST, Weight Dosing Start Date: 05/18/24 Status: Ordered Start: 01-10-2024 take 1 capsule by [facility] once daily omeprazole 20 mg Cap-DR 20 mg = 1 cap(s), Oral, Daily, # 30 cap(s), Refills(s) 0 Start Date: 01/10/24 Status: Ordered Start: 11-14-2023 omeprazole 40 mg Cap-DR See Instructions, TAKE 1 CAPSULE DAILY, # 90 cap(s), Refills(s) 1, Pharmacy: [facility], 172, cm, 10/19/23 8:14:00 EDT, Height/Length Dosing, 108.4, kg, 10/19/23 8:26:00 EDT, Weight Dosing Start Date: 11/14/23 Status: Ordered Start: 08-15-2023 take 1 capsule by [facility] once daily omeprazole 40 mg Cap-DR 40 mg = 1 cap(s), Oral, Daily, # 90 cap(s), Refills(s) 0, Pharmacy: [facility], 172, cm, 08/15/23 7:04:00 EDT, Height/Length Dosing, 107.2, kg, 08/15/23 7:04:00 EDT, Weight Dosing Start Date: 08/15/23 Status: Ordered Start: 07-26-2023 take 1 capsule by [facility] once daily omeprazole 40 mg Cap-DR 40 mg = 1 cap(s), Oral, Daily, # 90 cap(s), Refills(s) 0, Pharmacy: [facility], 174, cm, 07/26/23 10:21:00 EST, Height/Length Dosing, 104.8, kg, 07/26/23 10:21:00 EST, Weight Dosing Start Date: 07/26/23 Status: Ordered Start: 01-20-2023 take 1 capsule by [facility] once daily omeprazole 40 mg Cap-DR 40 mg = 1 cap(s), Oral, Daily, # 90 cap(s), Refills(s) 0, Pharmacy: [facility], 174.5, cm, 06/21/23 13:33:00 EST, Height/Length Dosing, 102.3, kg, 06/21/23 13:33:00 EST, Weight Dosing Start Date: 06/23/23 Status: Ordered ondansetron 4 mg disintegrating oral tablet (1 source) Serotonin-3 Receptor Antagonist Start: 09-09-2023 Ondansetron Active 4 MG TRANSLINGU Every 8 hours September 09, 2023 12:00am potassium chloride 10 meq extended release oral capsule (20 sources) Start: 10-19-2023 take 1 capsule by mouth once daily potassium chloride 10 mEq Cap-ER See Instructions, TAKE 1 CAPSULE BY MOUTH EVERY DAY, # 90 cap(s), Refills(s) 3, Pharmacy: [facility], 172, cm, 10/19/23 8:14:00 EDT, Height/Length Dosing, 108.4, kg, 10/19/23 8:26:00 EDT, Weight Dosing Start Date: 10/19/23 Status: Ordered Start: 09-13-2023 take 1 capsule by [facility] once daily potassium chloride 10 mEq Cap-ER See Instructions, TAKE 1 CAPSULE BY MOUTH EVERY DAY, # 90 cap(s), Refills(s) 1, Pharmacy: [id number], 172, cm, 08/19/23 11:59:00 EDT, Height/Length Dosing, 106, kg, 08/19/23 11:59:00 EDT, Weight Dosing Start Date: 09/13/23 Status: Ordered Start: 09-09-2023 take 10 mEq by mouth once iram y Potassium Chloride Active 10 MEQ PO Daily September 09, 2023 12:00am Start: 08-18-2023 take 1 capsule by [facility] once daily potassium chloride 10 mEq Cap-ER 10 mEq = 1 cap(s), Oral, Daily, # 30 cap(s), Refills(s) 0, [id number], 172, cm, 08/15/23 7:04:00 EDT, Height/Length Dosing, 107.2, kg, 08/15/23 7:04:00 EDT, Weight Dosing Start Date: 08/18/23 Status: Ordered Start: 06-15-2023 take 1 capsule by [facility] once daily potassium chloride 10 mEq Cap-ER 10 mEq = 1 cap(s), Oral, Daily, # 30 cap(s), Refills(s) 0, [id number], 175, cm, 06/14/23 10:52:00 EST, Height/Length Dosing, 102.3, kg, 06/14/23 10:52:00 EST, Weight Dosing Start Date: 06/15/23 Status: Ordered Start: 05-26-2023 End: 06-02-2023 take 1 tablet by mouth twice daily Potassium Chloride (Eqv-K-Tab) 20 mEq oral tablet, extended release 20 mEq = 1 tab(s), Oral, BID, X 7 day(s), # 14 tab(s), Refills(s) 0, [id number], 174.5, cm, 05/26/23 9:14:00 EST, Height/Length Dosing, 109.1, kg, 05/26/23 9:14:00 EST, Weight Dosing Start Date: 05/26/23 Stop Date: 06/02/23 Status: Ordered tamsulosin hydrochloride 0.4 mg oral capsule (20 sources) alpha-Adrenergic Pooja Start: 05-07-2024 take 1 capsule by mouth once daily in the evening tamsulosin 0.4 mg Cap 0.4 mg = 1 cap(s), Oral, qPM, # 90 cap(s), Refills(s) 4, Pharmacy: [facility], 175.3, cm, 01/13/24 9:06:00 EDT, Height/Length Dosing, 110.9, kg, 01/13/24 9:06:00 EDT, Weight Dosing Start Date: 05/07/24 Status: Ordered Start: 01-20-2024 take 1 capsule by [facility] once daily in the evening tamsulosin 0.4 mg Cap 0.4 mg = 1 cap(s), Oral, qPM, # 90 cap(s), Refills(s) 3, Pharmacy: [facility], 175.3, cm, 01/13/24 9:06:00 EDT, Height/Length Dosing, 110.9, kg, 01/13/24 9:06:00 EDT, Weight Dosing Start Date: 01/20/24 Status: Ordered Start: 06-14-2023 take 1 capsule by [facility] once daily in the evening tamsulosin 0.4 mg Cap 0.4 mg = 1 cap(s), Oral, qPM, Refills(s) 0 Start Date: 06/14/23 Status: Ordered Start: 01-13-2023 take 1 capsule by [facility] at bedtime tamsulosin 0.4 mg Cap 0.4 mg = 1 cap(s), Oral, Bedtime, Refills(s) 0 Start Date: 01/13/23 Status: Ordered Therapeutic Multiple Vitamin Tab (7 sources) Start: 12-30-2023 Therapeutic Mu ltiple Vitamin Tab See Instructions, 90 cap(s), Refill(s) 0, Oral Daily Start Date: 12/30/23 Status: Ordered Vitamin B Complex oral capsule (1 source) Start: 11-15-2012 take 1 capsule by mouth once daily Vitamin B Complex oral capsule 1 cap(s), Oral, Daily, Refill(s) 0, Prophylaxis Start Date: 11/15/12 Status: Ordered vitamin b12 1 mg oral tablet (6 sources) Vitamin B12 Start: 01-26-2024 take 1 tablet by mouth once daily cyanocobalamin 1000 mcg Tab 1,000 mcg = 1 tab(s), Oral, Daily, # 90 tab(s), Refills(s) 0, Pharmacy: [facility], 175.3, cm, 01/13/24 9:06:00 EDT, Height/Length Dosing, 110.9, kg, 01/13/24 9:06:00 EDT, Weight Dosing Start Date: 01/26/24 Status: Ordered Start: 12-30-2023 take 1 tablet by marly once daily cyanocobalamin 1000 mcg Tab 1,000 mcg = 1 tab(s), Oral, Daily, # 30 tab(s), Refills(s) 0, Pharmacy: [id number], 172, cm, 12/29/23 13:54:00 EDT, Height/Length Dosing, 109.8, kg, 12/29/23 13:54:00 EDT, Weight Dosing Start Date: 12/30/23 Status: Ordered Zofran ODT 4 mg Tab-Dis (14 sources) Start: 08-15-2023 take 1 tablet by mouth every eight hours as needed for nausea Zofran ODT 4 mg Tab-Dis 4 mg = 1 tab(s), Oral, q8hr, PRN Nausea/Vomiting, # 12 tab(s), Refills(s) 0, Pharmacy: [facility] #[id number], 172, cm, 08/15/23 7:04:00 EDT, Height/Length Dosing, 107.2, kg, 08/15/23 7:04:00 EDT, Weight Dosing Start Date: 08/15/23 Status: Ordered Start: 07-13-2023 take 1 tablet by marly th every eight hours as needed for nausea Zofran ODT 4 mg Tab-Dis 4 mg = 1 tab(s), Oral, q8hr, PRN Nausea/Vomiting, # 12 tab(s), Refills(s) 0, [id number], 175.4, cm, 06/28/23 7:53:00 EST, Height/Length Dosing, 106.8, kg, 06/28/23 7:53:00 EST, Weight Dosing Start Date: 07/13/23 Status: Ordered Completed/Discontinued Medications Medication Drug Class(es) Dates Sig (Normalized) Sig (Original) acetaminophen 325 mg / oxyCODONE hydrochloride 5 mg oral tablet (6 sources) Opioid Agonist Start: 05-19-2017 End: 09-09-2023 take 1 tablet by mouth every six hours Oxycodone-Acetamino phen Discontinued 1 TAB PO Q6H 40 May 19, 2017 1:00am September 09, 2023 11:44am Start: 04-04-2017 End: 09-09-2023 take 1 tablet by mouth every twelve hours Oxycodone-Acetaminophen (Percocet) 5-325 mg Tablet Discontinued 1 TAB PO Q12H April 04, 2017 12:00am September 09, 2023 11:40am cephalexin 500 mg oral capsule (9 sources) Cephalosporin Antibacterial Start: 09-22-2023 Keflex 500 mg Cap 50 0 mg = 1 cap(s), Oral, As Directed, Pt to take 1 tab the day before procedure and the 2nd tab the day of procedure once completed., # 2 cap(s), Refills(s) 0, [id number], 174.5, cm, 09/22/23 12:37:00 EDT, Height/Length Dosing, 105.9, kg, 09/22/23 12:37:00 EDT, Weight Dosing Start Date: 09/22/23 Status: Ordered Start: 05-26-2023 End: 06-02-2023 take 1 capsule by mouth four times daily Keflex 250 mg Cap 250 mg = 1 cap(s), Oral, QID, X 7 day(s), # 28 cap(s), Refills(s) 0, [id number], 174.5, cm, 05/26/23 9:14:00 EST, Height/Length Dosing, 109.1, kg, 05/26/23 9:14:00 EST, Weight Dosing Start Date: 05/26/23 Stop Date: 06/02/23 Status: Ordered Start: 05-16-2023 End: 05-23-2023 take 1 capsule by mouth four times daily Keflex 250 mg Cap 250 mg = 1 cap(s), Oral, QID, X 7 day(s), # 28 cap(s), Refills(s) 0, Pharmacy: [facility], 174.5, cm, 05/16/23 7:26:00 EST, Height/Length Dosing, 113.4, kg, 05/16/23 7:26:00 EST, Weight Dosing Start Date: 05/16/23 Stop Date: 05/23/23 Status: Ordered Start: 05-19-2017 End: 09-09-2023 take 1 capsule by mouth every eight hours Cephalexin (Keflex) 500 mg capsule Discontinued 500 MG PO Q8H 24 12May 19, 2017 1:00am September 09, 2023 11:39am cyclobenzaprine hydrochloride 10 mg oral tablet (3 sources) Muscle Relaxant Start: 04-04-2017 End: 09-09-2023 take 10 mg by mouth three times daily Cyclobenzaprine Discontinued 10 MG PO Three times daily April 04, 2017 12:00am September 09, 2023 11:39am docusate sodium 50 mg / sennosides, custodial 8.6 mg oral tablet (3 sources) Start: 05-19-2017 End: 09-09-2023 take 2 tablets by mouth twice daily Sennosides-Docusate Sodium (Dok Plus) 8.6-50 mg Tablet Discontinued 2 TAB PO Twice daily 40 May 19, 2017 1:00am September 09, 2023 11:41am esomeprazole 40 mg delayed release oral capsule (3 sources) Proton Pump Inhibitor Start: 04-04-2017 End: 05-18-2017 take 1 capsule by mouth once daily Esomeprazole Magnesium (Nexium) 40 mg Capsule,Delayed Release(Dr/Ec) Discontinued 40 MG PO Daily April 04, 2017 12:00am May 18, 2017 1:15pm 72 hr fentaNYL 0.025 mg/hr transdermal system (3 sources) Opioid Agonist Start: 05-19-2017 End: 09-09-2023 Fentanyl Discontinued 25 MCG TRANSDERML Every 72 hours 5 May 19, 2017 1:00am September 09, 2023 11:39am ferrous sulfate 324 mg delayed release oral tablet (3 sources) Start: 05-19-2017 End: 09-09-2023 take 324 mg by mouth twice daily Ferrous Sulfate Discontinued 324 MG PO Twice daily May 19, 2017 1:00am September 09, 2023 11:40am metoprolol 1 mg/mL Inj (1 source) Start: 09-01-2023 End: 09-01-2023 inject 10 mg intravenously once metoprolol 1 mg/mL Inj 10 mg = 10 mL, Injection, IV Push, Once, Stop date 09/01/23 10:51:00 AM EDT, Routine, Start date 09/01/23 11:00:00 AM EDT, 09/01/23 10:36:00 EDT Start Date: 09/01/23 Stop Date: 09/01/23 Status: Completed pantoprazole 40 mg delayed release oral tablet (3 sources) Proton Pump Inhibitor Start: 05-18-2017 End: 09-09-2023 take 40 mg by mouth once daily Pantoprazole Discontinued 40 MG PO Daily May 18, 2017 1:00am September 09, 2023 11:44am Problems Problem Classification Problem Date Documented Date Episodic/Chronic Abdominal pain (20 sources) Right flank pain 04-04-2023 Episodic Alcohol-related disorders (20 sources) Alcohol abuse; Translations: [Nondependent alcohol abuse in remission] Onset: 12-29-2023 01-20-2023 Chronic Calculus of urinary tract (20 sources) Kidney stone; Translations: [Calculus of kidney] Onset: 06-21-2023 Episodic Cardiac dysrhythmias (20 sources) Tachycardia 01-20-2023 Episodic Conditions associated with dizziness or vertigo (20 sources) Dizziness 06-13-2023 Episodic Congestive heart failure; nonhypertensive (16 sources) Diastolic dysfunction 08-15-2023 Chronic Deficiency and other anemia (1 source) Anemia; Translations: [Anemia, unspecified] Onset: 12-29-2023 Episodic Diabetes mellitus with complications (20 sources) Type 2 diabetes mellitus with unspecified complications; Translations: [Renal disorder due to type 2 diabetes mellitus] Onset: 07-13-2022 Chronic Comment on above: added per 07/06/2024 query response. Diabetes mellitus without complication (20 sources) Type 2 diabetes mellitus without complication; Translations: [Type 2 diabetes mellitus without complications] Onset: 12-29-2023 01-20-2023 Chronic Comment on above: linked DM with HLD p er OP CDI policy. Disorders of lipid metabolism (20 sources) Pure hypercholesterolemia, unspecified; Translations: [Hypercholesterolemia] Onset: 07-14-2022 01-13-2023 Chronic Esophageal disorders (20 sources) Gastroesophageal reflux disease without esophagitis; Translations: [Gastro-esophageal reflux disease without esophagitis] Onset: 12-29-2023 01-20-2023 Chronic Essential hypertension (20 sources) Essential (primary) hypertension; Translations: [Hypertensive disorder] Onset: 07-14-2022 11-15-2012 Chronic Fluid and electrolyte disorders (20 sources) Hypokalemia 05-26-2023 Episodic Genitourinary symptoms and ill-defined conditions (20 sources) Blood in urine; Translations: [Increased frequency of urination] Onset: 06-21-2023 04-04-2023 Episodic Heart valve disorders (20 sources) Heart murmur 07-14-2023 Episodic Hyperplasia of prostate (20 sources) Benign prostatic hypertrophy with outflow obstruction; Translations: [Benign prostatic hyperplasia with lower urinary tract symptoms] Onset: 06-21-2023 Chronic Hypertension with complications and secondary hypertension (1 source) Hypertensive urgency ; Translations: [Hypertensive urgency] Onset: 12-29-2023 Chronic Malaise and fatigue (20 sources) Fatigue 05-16-2023 Episodic Mood disorders (20 sources) Recurrent major depressive episodes, moderate ; Translations: [Depressive disorder] Onset: 12-29-2023 06-13-2023 Chronic Comment on above: added per 06/10/2023 query response. Other aftercare (6 sources) Post-discharge follow-up 06-28-2023 Episodic Other aftercare (1 source) Long-term current use of drug therapy; Translations: [Other chcf (current) drug therapy] Onset: 12-29-2023 Episodic Other diseases of bladder and urethra (2 sources) Neurogenic dysfunction of the urinary bladder; Translations: [Neuromuscular dysfunction of bladder, unspecified] Onset: 12-30-2023 Chronic Other diseases of bladder and urethra (6 sources) 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 Other diseases of kidney and ureters (1 source) Urinary tract obstruction; Translations: [Other obstructive and reflux uropathy] Onset: 11-28-2023 Episodic Other lower respiratory disease (20 sources) Dyspnea on exertion 06-13-2023 Episodic Other male genital disorders (1 source) Disorder of prostate, unspecified; Translations: [DISORDER OF PROSTATE UNSPECIFIED] Onset: 07-14-2022 Episodic Other male genital disorders (11 sources) Disorder of prostate 01-13-2023 Episodic Other male genital disorders (15 sources) Prostatic intraepithelial neoplasia; Translations: [Prostatic intraepithelial neoplasia] Onset: 09-22-2023 Episodic Other nervous system disorders (1 source) Bilateral carpal tunnel syndrome; Translations: [Carpal tunnel syndrome, bilateral upper limbs] 05-22-2024 Chronic Other nervous system disorders (1 source) Polyneuropathy; Translations: [Polyneuropathy, unspecified] 05-22-2024 Chronic Other nutritional; endocrine; and metabolic disorders (1 source) Obese class II; Translations: [Body mass index (BMI) 37.0-37.9, adult] Onset: 05-16-2023 Chronic Other nutritional; endocrine; and metabolic disorders (2 sources) Obesity; Translations: [Other obesity due to excess calories] Onset: 05-16-2023 Chronic Other nutritional; endocrine; and metabolic disorders (9 sources) Morbid obesity 05-16-2023 Chronic Comment on above: added per 05/13/2023 query response. Other nutritional; endocrine; and metabolic disorders (9 sources) Hypomagnesemia; Translations: [Hypomagnesemia] Onset: 12-29-2023 12-27-2023 Chronic Other nutritional; endocrine; and metabolic disorders (2 sources) Body mass index 30+ - obesity 07-09-2024 Chronic Other screening for suspected conditions (not mental disorders or infectious disease) (20 sources) Raised prostate specific antigen; Translations: [Elevated prostate specific antigen [PSA]] Onset: 06-21-2023 Episodic Residual codes; unclassified (20 sources) Edema 05-16-2023 Episodic Screening and history of mental health and substance abuse codes (2 sources) H/O: Disorder; Translations: [Personal history of nicotine dependence] Onset: 05-16-2023 Episodic Spondylosis; intervertebral disc disorders; other back problems (3 sources) Lumbosacral spondylosis; Translations: [Spondylosis without myelopathy or radiculopathy, lumbosacral region] 05-18-2023 Chronic Spondylosis; intervertebral disc disorders; other back problems (3 sources) Spinal stenosis of lumbar region; Translations: [Spinal stenosis, lumbar region without neurogenic claudication] 05-18-2023 Episodic Unclassified (20 sources) Patient encounter status 04-04-2023 Unclassified (13 sources) Finding of sensation of bladder 09-22-2023 Urinary tract infections (20 sources) Urinary tract infectious disease; Translations: [Urinary tract infection, site not specified] Onset: 06-21-2023 Episodic Results Test Name Value Interpretation Reference Range Facil ity Ambulatory Visit Summaryon 0 07-16-2024 Ambulatory Visit Summary Ambulatory Visit Summary ALICJA REYES :1955 Visit Date:07/16/2024 Ambulatory Visit Instructions Your Diagnosis Type 2 diabetes mellitus with hypercholesterolemia BMI 37.0-37.9, adult Obesity (BMI 30-39.9) Former smoker Hypomagnesemia Pure hypercholesterolemia, unspecified Your Care Team Attending Physician - Jose Grace MD Primary Care Physician - Ross MD, Jose E. This Is Your Medications List Misc Prescription ([facility] Prescription) amlodipine (amLODIPine 5 mg Tab) atorvastatin (atorvastatin 40 mg Tab) gabapentin (gabapentin 100 mg Cap) lisinopril (lisinopril 40 mg Tab) magnesium oxide (magnesium oxide 400 mg Tab) metformin (Glucophage XR 500 mg Tab-ER) metoprolol (metoprolol 25 mg ER Tab) multivitamin (Therapeutic Multiple Vitamin Tab) naproxen (Aleve) omeprazole (omeprazole 20 mg Cap-DR) potassium chloride (potassium chloride 10 mEq Cap-ER) semaglutide (Ozempic 2 mg/3 mL (0.25 mg or 0.5 mg dose) subcutaneous solution) tamsulosin (tamsulosin 0.4 mg Cap) Procedures Performed Arthroscopy, back surgery, Carpal tunnel release, Colonoscopy, hand and elbow surgery LEFT, Hand tendon repaired, Spinal fusion. Discharge Vitals Temperature (Tympanic) 36.5 ???C Heart Rate (Peripheral) 85 Respiratory Rate 18 Blood Pressure 138/86 Height 175.3 cm Height 69 in Weight 114 kg Weight 251.327 lb BMI 37.1 What to do next Scheduled Follow-Up Appointments Tuesday 9:20 AM EST With: TOSHIA Reddy APRN, [place] [facility] Where: [facility] [address] [address]- Tuesday 8:15 AM EDT With: Jose Grace MD Where: [address] [id number]- Tuesday 8:15 AM EDT With: Jose Grace MD Where: [address] [id number]- [id number] 8:00 AM EST With: Where: [address] [address]- Medications What How Much When Why Instructions New semaglutide (Ozempic 2 mg/ 3 mL (0.25 mg or 0.5 mg dose) subcutaneous solution) 0.25 Milligram Subcutaneous Every week Type 2 diabetes mellitus with hypercholesterolemia BMI 37.0-37.9, adult Obesity (BMI 30-39.9) Former smoker Hypomagnesemia Pickup at [facility] #[id number] Unchanged amlodipine (amLODIPine 5 mg Tab) See instructions TAKE 1 TABLET DAILY Unchanged atorvastatin (atorvastatin 40 mg Tab) See instructions TAKE 1 TABLET DAILY Unchanged gabapentin (gabapentin 100 mg Cap) 1 Capsules By Mouth Once a day (at bedtime) Numbness or tingling Unchanged lisinopril (lisinopril 40 mg Tab) 1 Tablets By Mouth Every day Unchanged magnesium oxide (magnesium oxide 400 mg Tab) 400 Milligram By Mouth 3 times a day dose change-last magnesium level completed - Unchanged metformin (Glucophage XR 500 mg Tab-ER) 2 Tablets By Mouth 2 times a day Unchanged metoprolol (metoprolol 25 mg ER Tab) 1 Tablets By Mouth Every day Unchanged [facility] Prescription ([facility] Prescription) 'Number 1' Glucometer and test strips testing BS twice daily- will bring equipment to [facility] f/ u to update brand Unchanged multivitamin (Therapeutic Multiple Vitamin Tab) See instructions Oral Daily Unchanged naproxen (Aleve) 220 Milligram By Mouth Every 12 hours se as needed Unchanged omeprazole (omeprazole 20 mg Cap-DR) 1 Capsules By Mouth Every day BMI 36.0-36.9,adult Exogenous obesity Unchanged potassium chloride (potassium chloride 10 mEq Cap-ER) See instructions TAKE 1 CAPSULE BY MOUTH EVERY DAY Unchanged tamsulosin (tamsulosin 0.4 mg Cap) 1 Capsules By Mouth Once a day (in the evening) Pharmacy Information [facility]/pharmacy #[id number]: [address], [place] [phone] Allergies CeleBREX (Anxiety, Unknown) Problems Ongoing - Any problem that you are currently receiving treatment for. Alcohol abuse BMI 37.0-37.9, adult BPH without urinary obstruction Colon cancer screening Diabetic nephropathy associated with type 2 diabetes mellitus Diastolic dysfunction Dizziness Edema Elevated PSA Fatigue Feeling of incomplete bladder emptying Former smoker Gastroesophageal reflux disease without esophagitis Hypercholesterolemia Hypokalemia Hypomagnesemia Hypotonic neurogenic bladder Kidney stone Major depressive disorder, recurrent, moderate Morbid obesity Murmur Obesity (BMI 30-39.9) PIN (prostatic intraepithelial neoplasia) Primary hypertension Recurrent UTI Tachycardia Type 2 diabetes mellitus with hypercholesterolemia Type 2 diabetes mellitus with peripheral neuropathy Historical - Any problem that you are no longer receiving treatment for. Acid reflux Diabetes mellitus Patient Survey You ma (more content not included)... Normal [facility] Medicine Office/Clini c Noteon 07-16-2024 Family Medicine Office/Clinic Note Family Medicine Office/Clinic Note Chief Complaint Discuss A1C results The patient presents for a medication review and management of Type 2 diabetes mellitus. HPI Staff Pt presents today to discuss recent A1C results. Hgb A1C %: 8 % High (07/09/24 08:14:00) Does need refill of Omeprazole (mail in pharmacy) History of Present Illness The patient is a 69-year-old male presenting with Type 2 diabetes mellitus management and medication review. The patient's last Hemoglobin A1c has increased to 8.0, which indicates a decline in glycemic control. He has been consistently taking metformin, suggesting that dietary indiscretions during the recent holiday season may have contributed to this elevation. Historically, the patient's Type 2 diabetes has been complicated by hypercholesterolemia. The patient expresses concerns regarding medication costs due to a fixed income. Currently, magnesium levels are under review due to previously undetected hypomagnesemia. The patient has been managing this with [id number] magnesium supplements. He denies any symptoms of weakness commonly associated with magnesium deficiency. His medical history includes obesity and pure hypercholesterolemia, which necessitate careful medication consideration. - Discussed potential for newer diabetes medications such as Jardiance, Trulicity, and Ozempic, which may aid in blood glucose management and offer cardiovascular and renal protection. - Discussed dietary modifications appropriate for glycemic control, especially in light of recent dietary indiscretions. - Encouraged weight management given obesity and its complications. Review of Systems PHQ Score Initial Depression Screen Score: 0 SCORE Physical Exam Vitals & Measurements T: 36.5 ???C(Tympanic) HR: 85(Peripheral) RR: 18 BP: 138/86 SpO2: 99% HT: 69 in HT: 175.3 cm WT: 114 kg WT: 251.327 lb BMI: 37.1 General: alert, no acute distress ENMT: oral mucosa moist Cardiovascular: Regular rate and rhythm, normal peripheral perfusion Respiratory: Lungs clear to auscultation, respirations non labored Extremities: no deformity, no trauma Neurological: oriented x 4, level of consciousness appropriate for age, CN II-XII intact, motor strength equal & normal bilaterally, speech normal Abdomen: Soft, Non-tender, Non-distended, + Bowel sounds Assessment/Plan 1. Type 2 diabetes mellitus with hypercholesterolemia (E11.69: Type 2 diabetes mellitus with other specified complication) Introduced newer antidiabetic medications, with consideration given to the patient's fixed income and available subsidies. Suggested medications include Ozempic and Trulicity, with a secondary option as Jardiance. A plan is in place to fill necessary forms for cost assistance where applicable. Ordered: semaglutide, 0.25 mg, SubCutaneous, qWeek, # 3 mL, Refills(s) 0, Pharmacy: [facility]/pharmacy #[id number], 175.3, cm, 07/16/24 8:18:00 EST, Height/Length Dosing, 114, kg, 07/16/24 8:18:00 EST, Weight Dosing Body Mass Index (BMI) documented 3008F Current tobacco non-user 1036F Depression Screening Negative 3352F Influenza immunization status assessed 1030F Lab Specimen Collect 79595 Magnesium Level Medication list documented in medical record 1159F Most recent diastolic blood pressure 80-89 mm Hg 3079F Patient screen for fall risk: no falls in last year or 1 fall with no injury in last year 1101F Review of all meds by a prescribing practitioner or clinical pharmacist documented in EHR 1160F Systolic BP 130-139 mm Hg (Most Recent) 3075F 2. BMI 37.0-37.9, adult (Z68.37: Body mass index [BMI] 37.0-37.9, adult) Monitored for necessary lifestyle modifications. Weight management remains a priority to aid overall metabolic control. Ordered: semaglutide, 0.25 mg, SubCutaneous, qWeek, # 3 mL, Refills(s) 0, Pharmacy: [facility]/pharmacy #[id number], 175.3, cm, 07/16/24 8:18:00 EST, Height/Length Dosing, 114, kg, 07/16/24 8:18:00 EST, Weight Dosing Magnesium Level 3. Obesity (BMI 30-39.9) (E66.9: Obesity, unspecified) Encouraged dietary modifications and physical activity. Consideration for medications that could provide weight loss benefits inclusive to their primary use, such as Ozempic. Ordered: semaglutide, 0.25 mg, SubCutaneous, qWeek, # 3 mL, Refills(s) 0, Pharmacy: [facility]/pharmacy #[id number], 175.3, cm, 07/16/24 8:18:00 EST, Height/Length Dosing, 114, kg, 07/16/24 8:18:00 EST, Weight Dosing Magnesium Level 4. Former smoker (Z87.891: Personal history of nicotine dependence) Reinforced smoking cessation and its benefits on long-term health outcomes. Ordered: semaglutide, 0.25 mg, SubCutaneous, qWeek, # 3 mL, Refills(s) 0, Pharmacy: [facility]/pharmacy #[id number], 175.3, cm, 07/16/24 8:18:00 EST, Height/Length Dosing, 114, kg, 07/16/24 8:18:00 EST, Weight Dosing Magnesium Level 5. Hypomagnesemia (E83.42: Hypomagnesemia) Blood sample required to reassess serum magnesium levels. Depending on results, magnesium supplementation may be adjusted. Ordered: sema (more content not included)... Normal [facility] Comment on above: Result Comment: Elec tronically Signed By: Jose Grace MD\.br\Date and Time Signed: 07/16/24 08:57 EST Pre-Visit Planningon 025 Pre-Visit Planning Pre-Visit Planning From: Valarie Solis To: Jose Grace MD; Sent: 07/06/2024 11:24:03 EST Subject: Pre-Visit Planning Due Date/Time: 07/06/2024 11:24:00 EST Caller Name: ERIC ALICJA Bharathi; Caller Number: , Ms Dr. Grace. During a pre-visit planning chart review, I noted the following documentation in the medical record: Current Problem List: Alcohol abuse uncomplicated, Hypokalemia, Hypomagnesemia, Major depressive disorder recurrent moderate, HTN, and Tachycardia. Current Medication List: amlodipine, lisinopril, magnesium oxide, metoprolol, and potassium chloride. 07/25/2023 MWV: AUDIT Score =5. 12/29/2023 [facility] [place] [facility] Consult Note: Alcoholism: Discussed with him stopping his alcohol use. He states that he would rather than stop drinking alcohol. He currently drinks 6-10 beers per day. Consult case management for rehabilitation. [facility] protocol. 01/05/2024 Office Visit Note: HPI- Still drinking 6-12 beers a day. Assessment/Plan- Alcohol abuse (F10.10: Alcohol abuse, uncomplicated) - Discussed in detail with the patient. Pt is still in denial Clinical evidence indicates that this patient is currently using alcohol. Please select at least one item from each category. I can update the Chronic Problem List with your response if you would like. Substance [___]Alcohol Use: [___]Abuse [___]Dependence, continuous [___]Dependence, episodic Complication: [___]Intoxication [___]Psychotic disorder [___]Uncomplicated [___]In remission [___]Mood disorder [___]Unspecified With: [___]Delirium [___]Delusions [___]Withdrawal [___]Sexual dysfunction [___]Perceptual disturbance [___]Anxiety disorder [___]Sleep disorder [___]Other disorder: [___]Other: In responding to this request, please exercise your independent professional judgment. The fact that a question is asked does not imply that any particular answer is desired or expected. If you have any questions, please feel free to contact me at extension [phone]. Thank you! Valarie Solis LPN Clinical Expressive Art Therapist [place] [address] Extension: [phone] [email or web address] From: Ruiz REYNOLDS, Jose Thompson To: Valarie Solis; Sent: 07/09/2024 07:51:01 EST Subject: RE: Pre-Visit Planning Caller Name: ALICJA REYES; Caller Number: Sana , Nicole His alcohol abuse is complicated for electrolyte abnormalities and likely Neuropathy. I do not know how to code that. From: Valarie Solis To: Jose Grace MD; Sent: 07/13/2024 11:43:18 EST Subject: Pre-Visit Planning Due Date/Time: 07/13/2024 11:42:00 EST Caller Name: ALICJA REYES; Caller Number: Sana , Nicole Ms Dr. Grace, would you like me to add either or both of the following diagnoses to the Chronic Problem List? 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 Primary Care Physician - Jose Grace MD. This Is Your Medications List Misc Prescription (Misc DME Prescription) amlodipine (amLODIPine 5 mg Tab) atorvastatin (atorvastatin 40 mg Tab) gabapentin (gabapentin 100 mg Cap) lisinopril (lisinopril 40 mg Tab) magnesium oxide (magnesium oxide 400 mg Tab) metformin (Glucophage XR 500 mg Tab-ER) metoprolol (metoprolol 25 mg ER Tab) multivitamin (Therapeutic Multiple Vitamin Tab) naproxen (Aleve) omeprazole (omeprazole 20 mg Cap-DR) potassium chloride (potassium chloride 10 mEq Cap-ER) tamsulosin (tamsulosin 0.4 mg Cap) Procedures Performed Arthroscopy, back surgery, Carpal tunnel release, Colonoscopy, hand and elbow surgery LEFT, Hand tendon repaired, Spinal fusion. Discharge Vitals Temperature (Tympanic) 36.4 ???C Heart Rate (Peripheral) 89 Respiratory Rate 18 Blood Pressure 138/82 Height 175.3 cm Height 69 in Weight 114.2 kg Weight 251.768 lb BMI 37.16 What to do next Scheduled Follow-Up Appointments Tuesday 9:20 AM EST With: TOSHIA Reddy APRN, [place] [facility] Where: [facility] [address] [place] [address]- Tuesday 8:15 AM EDT With: Jose Grace MD Where: [address] [address]- Tuesday 8:15 AM EDT With: Jose Grace MD Where: [address] [address]- Medications What How Much When Why Instructions Unchanged amlodipine (amLODIPine 5 mg Tab) See instructions TAKE 1 TABLET DAILY Unchanged atorvastatin (atorvastatin 40 mg Tab) 1 Tablets By Mouth Every day Unchanged gabapentin (gabapentin 100 mg Cap) 1 Capsules By Mouth Once a day (at bedtime) Numbness or tingling Unchanged lisinopril (lisinopril 40 mg Tab) 1 Tablets By Mouth Every day Unchanged magnesium oxide (magnesium oxide 400 mg Tab) 400 Milligram By Mouth 3 times a day dose change-last magnesium level completed - Unchanged metformin (Glucophage XR 500 mg Tab-ER) 2 Tablets By Mouth 2 times a day Unchanged metoprolol (metoprolol 25 mg ER Tab) 1 Tablets By Mouth Every day [facility]changed [facility] ([facility] Prescription) 'Number 1' Glucometer and test strips testing BS twice daily- will bring equipment to [facility] f/ u to update brand Unchanged multivitamin (Therapeutic Multiple Vitamin Tab) See instructions Oral Daily Unchanged naproxen (Aleve) 220 Milligram By Mouth Every 12 hours se as needed Unchanged omeprazole (omeprazole 20 mg Cap-DR) 1 Capsules By Mouth Every day BMI 36.0-36.9,adult Exogenous obesity Unchanged potassium chloride (potassium chloride 10 mEq Cap-ER) See instructions TAKE 1 CAPSULE BY MOUTH EVERY DAY Unchanged tamsulosin (tamsulosin 0.4 mg Cap) 1 Capsules By Mouth Once a day (in the evening) Allergies CeleBREX (Anxiety, Unknown) Problems Ongoing - Any problem that you are currently receiving treatment for. Alcohol abuse BMI 37.0-37.9, adult BPH without urinary obstruction Colon cancer screening Diabetic nephropathy associated with type 2 diabetes mellitus Diastolic dysfunction Dizziness Edema Elevated PSA Fatigue Feeling of incomplete bladder emptying Former smoker Gastroesophageal reflux disease without esophagitis Hematuria Hypercholesterolemia Hypokalemia Hypomagnesemia Hypotonic neurogenic bladder Kidney stone Major depressive disorder, recurrent, moderate Morbid obesity Murmur Obesity (BMI 30-39.9) PIN (prostatic intraepithelial neoplasia) Primary hypertension Recurrent UTI Tachycardia Type 2 diabetes mellitus with hypercholesterolemia Historical - Any problem that you are no longer receiving treatment for. Acid reflux Diabetes mellitus Patient Survey You may receive a survey via text or e-mail asking about your office visit. Please share your experience with us by completing your survey. We appreciate your feedback and thank you for choosing us for your care. Normal [facility] CBC w/ Auto Diffon 5 Basophils/100 WBC (Bld) 0.7 % Normal 0.0-2.0 [facility] Comment on above: Performed By: #### 2 [id number] #### [facility] [address] [place] [address] Basophils/Leukocytes Auto (Bld) [Pure # fraction] 0.0 E9/L Normal 0.0-0.2 [facility] Comment on above: Performed By: #### 2 [id number] #### [facility] [address] [place] [address] Eosinophils (Bld) [#/Vol] 0.2 E9/L Normal 0.0-0.5 [facility] Comment on above: Performed By: #### 2 [id number] #### [facility] [address] [place] [address] Eosinophils/100 WBC (Bld) 3.3 % Normal 0.0-8.0 [facility] Comment on above: Performed By: #### 2 [id number] #### [facility] [address] [place] [address] Erythrocyte distribution width (RBC) [Ratio] 12.9 % Normal 10.9-14.2 [facility] Comment on above: Performed By: #### 2 [id number] #### [facility] [address] [place] [address] Hematocrit (Bld) [Volume fraction] 39.3 % Normal 37.7-49.0 [facility] Comment on above: Performed By: #### 2 [id number] #### [facility] [address] [place] [address] Hemoglobin (Bld) [Mass/Vol] 13.3 g/dL Low 13.5-17.5 [facility] Comment on above: Performed By: #### 2 [id number] #### [facility] [address] [place] [address] Lymphocytes (Bld) [#/Vol] 1.4 E9/L Normal 1.0-4.0 [facility] Comment on above: Performed By: #### 2 [id number] #### [facility] [address] [place] [address] Lymphocytes/100 WBC (Bld) 21.3 % Normal 14.0-50.0 [facility] Comment on above: Performed By: #### 2 [id number] #### [facility] [address] [place] [address] MCH (RBC) [Entitic mass] 33.6 pg Normal 27.0-34.0 [facility] Comment on above: Performed By: #### 2 [id number] #### [facility] [address] [place] [address] MCHC (RBC) [Mass/Vol] 33.9 g/dL Normal 31.4-36.0 [facility] Comment on above: Performed By: #### 2 [id number] #### [facility] [address] [place] [address] MCV (RBC) [Entitic vol] 99.1 fL Normal 80.0-100.0 [facility] Comment on above: Performed By: #### 2 [id number] #### [facility] [address] [place] [address] Monocytes (Bld) [#/Vol] 0.7 E9/L Normal 0.2-1.0 [facility] Comment on above: Performed By: #### 2 [id number] #### [facility] [address] [place] [address] Neutrophils (Bld) [#/Vol] 4.1 E9/L Normal 2.0-7.5 [facility] Comment on above: Performed By: #### 2 [id number] #### [facility] [address] [place] [address] Neutrophils/100 WBC (Bld) 63.7 % Normal 36.0-75.0 [facility] Comment on above: Performed By: #### 2 [id number] #### [facility] [address] [place] [address] Platelet mean volume (Bld) [Entitic vol] 8.0 fL Normal 6.4-10.8 [facility] Comment on above: Performed By: #### 2 [id number] #### [facility] [address] [place] [address] Platelets (Bld) [#/Vol] 249.0 E9/L Normal 150.0-500.0 [facility] Comment on above: Performed By: #### 2 [id number] #### [facility] [address] [place] [address] RBC (Bld) [#/Vol] 4.0 E12/L Low 4.3-5.9 [facility] Comment on above: Performed By: #### 2 [id number] #### [facility] [address] [place] [address] WBC corrected for nucl RBC Auto (Bld) [#/Vol] 6.4 E9/L Normal 4.0-11.0 [facility] Comment on above: Performed By: #### 2 [id number] #### [facility] [address] [place] [address] CHEMISTRYOrdered By: SYSTEM SYSTEM on 07-09-2024 Albumin [Mass/Vol] 4.3 g/dL Normal 3.3 - 5.0 gm/dL R emisol Chem Albumin/Globulin [Mass ratio] 1.7 {ratio} Normal 1.1 - 2.2 [facility] ALP [Catalytic activity/Vol] 75 [iU]/d Normal 21 - 98 Int._Unit/L [facility] ALT No additional P-5'-P [Catalytic activity/Vol] 16 [iU]/d Normal 6 - 46 Int._Unit/L [facility] Anion gap [Moles/Vol] 14 mmol/L Normal 6 - 16 mEq/L R emisol Chem AST [Catalytic activity/Vol] 17 [iU]/d Normal 5 - 43 Int._Unit/L [facility] Bilirubin [Mass/Vol] 0.9 mg/dL Normal 0.0 - 1.1 mg/dL [facility] Calcium [Mass/Vol] 8.0 mg/dL Low 8.9 - 11.1 mg/dL [facility] Chloride [Moles/Vol] 102 mmol/L Normal 101 - 111 mmol/ L [facility] Cholesterol [Mass/Vol] 112 mg/dL Low 120 - 200 mg/dL [facility] Cholesterol in HDL [Mass/Vol] 41 mg/dL Invalid Interpretation Code [facility] Comment on above: Result Comment: '>= 60 LOW RISK' '<= 40 HIGH RISK' Cholesterol in LDL [Mass/Vol] 59 mg/dL Normal <=129mg/dL [facility] Cholesterol in VLDL [Mass/Vol] 20 mg/dL Normal 7 - 40 mg/dL [facility] CO2 [Moles/Vol] 27 mmol/L Normal 21 - 31 mmol/L Remis ol Chem Creatinine [Mass/Vol] 1.3 mg/dL Normal 0.5 - 1.3 mg/d L [facility] eGFR 59 mL/min/1.73 m2 Normal >=59mL/min /1.73 m2 [facility] Globulin (S) [Mass/Vol] 2.6 g/dL Normal 1.4 - 4.0 gm/dL [facility] Glucose [Mass/Vol] 291 mg/dL High 55 - 199 mg/dL Re misol Chem Potassium [Moles/Vol] 3.7 mmol/L Normal 3.5 - 5.3 mmol /L [facility] Protein [Mass/Vol] 6.9 g/dL Normal 6.0 - 7.8 gm/dL R emisol Chem Sodium [Moles/Vol] 139 mmol/L Normal 135 - 145 mmol/L [facility] Triglyceride [Mass/Vol] 100 mg/dL Normal <=149mg/dL [facility] Urea nitrogen [Mass/Vol] 12 mg/dL Normal 5 - 21 mg/dL [facility] Urea nitrogen/Creatinine [Mass ratio] 9 mg/mg Low 10 - 20 [facility] Albumin DL <= 20 mg/L (U) [Mass/Vol] 10.5 mg/dL High 0.0 - 1.9 mg/dL [facility] CHEMISTRYOrdered By: Isidro Roberts ertolasio on 07-09-2024 HbA1c (Bld) [Mass fraction] 8.0 % High <=5.9% [facility] ChemAutoSS CMPon 07-09-2024 Albumin [Mass/Vol] 4.3 g/dL Normal 3.3-5.0 [facility] Comment on above: Performed By: #### 2 [id number] #### [facility] [address] [place] [address] Albumin/Globulin (S) [Mass conc ratio] 1.7 Normal 1.1-2.2 [facility] Comment on above: Performed By: #### 2 [id number] #### [facility] [address] [place] [address] ALP [Catalytic activity/Vol] 75 Int._Unit/L Normal 21-98 [facility] Comment on above: Performed By: #### 2 [id number] #### [facility] [address] [place] [address] ALT No additional P-5'-P [Catalytic activity/Vol] 16 Int._Unit/L Normal 6-46 [facility] Comment on above: Performed By: #### 2 [id number] #### [facility] [address] [place] [address] Anion gap [Moles/Vol] 14 mmol/L Normal 6-16 [facility] Comment on above: Performed By: #### 2 [id number] #### [facility] [address] [place] [address] AST [Catalytic activity/Vol] 17 Int._Unit/L Normal 5-43 [facility] Comment on above: Performed By: #### 2 [id number] #### [facility] [address] [place] [address] Bilirubin [Mass/Vol] 0.9 mg/dL Normal 0.0-1.1 [facility] Comment on above: Performed By: #### 2 [id number] #### [facility] [address] [place] [address] Calcium [Mass/Vol] 8.0 mg/dL Low 8.9-11.1 [facility] Comment on above: Performed By: #### 2 [id number] #### [facility] [address] [place] [address] Chloride [Moles/Vol] 102 mmol/L Normal 101-111 [facility] Comment on above: Performed By: #### 2 517258 #### [facility] [address] [place] [address] CO2 [Moles/Vol] 27 mmol/L Normal 21-31 [facility] Comment on above: Performed By: #### 2 [id number] #### [facility] [address] [place] [address] Creatinine [Mass/Vol] 1.3 mg/dL Normal 0.5-1.3 [facility] Comment on above: Performed By: #### 2 [id number] #### [facility] [address] [place] [address] Globulin (S) [Mass/Vol] 2.6 g/dL Normal 1.4-4.0 [facility] Comment on above: Performed By: #### 2 757459 #### [facility] [address] [place] [address] Glucose [Mass/Vol] 291 mg/dL High 55-199 [facility] Comment on above: Performed By: #### 2 340600 #### [facility] [address] [place] [address] Potassium [Moles/Vol] 3.7 mmol/L Normal 3.5-5.3 [facility] Comment on above: Performed By: #### 2 [id number] #### [facility] [address] [place] [address] Protein [Mass/Vol] 6.9 g/dL Normal 6.0-7.8 [facility] Comment on above: Performed By: #### 2 198411 #### [facility] [address] [place] [address] Sodium [Moles/Vol] 139 mmol/L Normal 135-145 [facility] Comment on above: Performed By: #### 2 147545 #### [facility] [address] [place] [address] Urea nitrogen [Mass/Vol] 12 mg/dL Normal 5-21 [facility] Comment on above: Performed By: #### 2 [id number] #### [facility] [address] [place] [address] Urea nitrogen/Creatinine [Mass ratio] 9 No Units Low 10-20 [facility] Comment on above: Performed By: #### 2 [id number] #### [facility] [address] [place] [address] Family Medicine Office/Clini c Noteon 07-09-2024 Family Medicine Office/Clinic Note Family Medicine Office/Clinic Note Chief Complaint Med Refills Worsening depressive symptoms following a recent bereavement. HPI Staff Pt presents today for med refills Patient is here for follow up on Diabetes. How often are you checking your blood sugars? _no? What are your average readings?_? NA Are you compliant with your diet? yes? Do you exercise? yes? Are you compliant with your medications or having difficulty affording your medications? no? Do you have any of the following symptoms? Vision problems? no? Lightheadedness? no? Paresthesias, Ulcerations or sores? no? Hgb A1C %: 7.4 % High (08/15/23 07:26:00) Patient is here for follow up on hypertension. How often are you checking your blood pressure? no What are your average readings? NA Yearly BMP: 12/30/2023 Concerns: States he got a letter from [employer] stating it is time for next one. Denies needing any refills. History of Present Illness The patient is a 69-year-old male presenting with worsening depressive symptoms following the of his brother two weeks ago. He reports feeling significantly down, attributing this exacerbation to the recent bereavement. The patient's history includes recurrent major depressive disorder, which he is currently experiencing at a moderate level. He has a history of type 2 diabetes mellitus with diabetic nephropathy, complicated by alcohol use, which he reports moderating in frequency to 2-3 beers, 2-3 times a week, primarily in the winter season. There is concern regarding fluctuating potassium and magnesium levels, prompted by his medical history of hypokalemia and hypomagnesemia, with a plan to evaluate these levels due to potential reductions related to alcohol use. Additionally, the patient acknowledges difficulties managing his blood glucose levels and reports infrequent testing. He has been managed for morbid obesity, with a recorded BMI between 37.0 and 37.9, and pure hypercholesterolemia, unspecified. Diastolic dysfunction is noted as part of his cardiac history by a former tinner automatic. He also mentions self-catherization due to a weak bladder, with consistent urological follow-up. Regarding health maintenance, he receives regular monitoring including PSA levels checked by his urologist, and confirmation is sought for a recent colon cancer screening test update. - PSA levels previously assessed by urology. - Referral for colon cancer screening update via [facility]. - Ongoing monitoring of blood glucose levels is recommended. - Emphasis on moderating alcohol consumption due to potential electrolyte and neuropathy complications. - Assessment of magnesium and potassium due to historical deficiencies. Review of Systems PHQ Score Initial Depression Screen Score: 0 SCORE Physical Exam Vitals & Measurements T: 36.4 ???C(Tympanic) HR: 89(Peripheral) RR: 18 BP: 138/82 SpO2: 97% HT: 69 in HT: 175.3 cm WT: 114.2 kg WT: 251.768 lb BMI: 37.16 General: alert, no acute distress ENMT: oral mucosa moist Cardiovascular: Regular rate and rhythm, normal peripheral perfusion Respiratory: Lungs clear to auscultation, respirations non labored Extremities: no deformity, no trauma, trace edema Neurological: oriented x 4, level of consciousness appropriate for age, CN II-XII intact, motor strength equal & normal bilaterally, speech normal Abdomen: Soft, Non-tender, Non-distended, + Bowel sounds Assessment/Plan 1. Major depressive disorder, recurrent, moderate (F33.1: Major depressive disorder, recurrent, moderate) The exacerbation of symptoms due to bereavement is acknowledged. Patient counseling regarding mood changes and potential medication adjustments will be considered based on further follow-up. Ordered: CBC w/ Auto Diff Cologuard Screening Test Comprehensive Metabolic Panel HgbA1c Lipid Panel Microalbumin Level Urine Urine Microalbumin/Creatini ne Ratio 2. Type 2 diabetes mellitus with hypercholesterolemia (E11.69: Type 2 diabetes mellitus with other specified complication) Will recheck labs today. Pt does not check his BS at home. Ordered: CBC w/ Auto Diff Cologuard Screening Test Comprehensive Metabolic Panel HgbA1c Lipid Panel Microalbumin Level Urine Urine Microalbumin/Creatini ne Ratio 3. Diabetic nephropathy associated with type 2 diabetes mellitus (E11.21: Type 2 diabetes mellitus with diabetic nephropathy) Blood glucose levels need monitoring. Patient is reminded of the importance of regular checks to manage diabetes effectively. Ordered: CBC w/ Auto Diff Cologuard Screening Test Comprehensive Metabolic Panel HgbA1c Lipid Panel Microalbumin Level Urine Urine Microalbumin/Creatini ne Ratio 4. Colon cancer screening (Z12.11: Encounter for screening for malignant neoplasm of colon) Ordered: CBC w/ Auto Diff Cologuard Screening Test Comprehensive Metabolic Panel HgbA1c Lipid Panel Microalbumin Level Urine Urine Microalbumin/Creatini ne Ratio 5 (more content not included)... Normal [facility] Comment on above: Result Comment: Elec tronically Signed By: Ruiz REYNOLDS, Jose Thompson\.br\Date and Time Signed: 07/09/24 08:07 EST HEMATOLOGYOrdered By: SYSTEM SYSTEM on 07-09-2024 Basophils/100 WBC (Bld) 0.7 % Normal 0.0 - 2.0 % [facility] Basophils/Leukocytes Auto (Bld) [Pure # fraction] 0.0 E9/L Normal 0.0 - 0.2 E9/L [facility] Eosinophils (Bld) [#/Vol] 0.2 E9/L Normal 0.0 - 0.5 E9/L [facility] Eosinophils/100 WBC (Bld) 3.3 % Normal 0.0 - 8.0 % [facility] Erythrocyte distribution width (RBC) [Ratio] 12.9 % Normal 10.9 - 14.2 % [facility] Hematocrit (Bld) [Volume fraction] 39.3 % Normal 37.7 - 49.0 % [facility] Hemoglobin (Bld) [Mass/Vol] 13.3 g/dL Low 13.5 - 17.5 gm/dL [facility] Lymphocytes (Bld) [#/Vol] 1.4 E9/L Normal 1.0 - 4.0 E9/L [facility] Lymphocytes/100 WBC (Bld) 21.3 % Normal 14.0 - 50.0 % [facility] MCH (RBC) [Entitic mass] 33.6 pg Normal 27.0 - 34.0 pg [facility] MCHC (RBC) [Mass/Vol] 33.9 g/dL Normal 31.4 - 36.0 gm /dL [facility] MCV (RBC) [Entitic vol] 99.1 fL Normal 80.0 - 100.0 fL [facility] Monocytes (Bld) [#/Vol] 0.7 E9/L Normal 0.2 - 1.0 E9/L [facility] Monocytes/100 WBC (Bld) 11.0 % Normal 4.0 - 14.0 % [facility] Neutrophils (Bld) [#/Vol] 4.1 E9/L Normal 2.0 - 7.5 E9/L [facility] Neutrophils/100 WBC (Bld) 63.7 % Normal 36.0 - 75.0 % [facility] Platelet mean volume (Bld) [Entitic vol] 8.0 fL Normal 6.4 - 10.8 fL [facility] Platelets (Bld) [#/Vol] 249.0 E9/L Normal 150.0 - 500.0 E9/L [facility] RBC (Bld) [#/Vol] 4.0 E12/L Low 4.3 - 5.9 E12/L Re misol Heme WBC corrected for nucl RBC Auto (Bld) [#/Vol] 6.4 E9/L Normal 4.0 - 11.0 E9/L [facility] [id number] 07-09-2024 HbA1c (Bld) [Mass fraction] 8.0 % High <=5.9 [facility] Comment on above: Performed By: #### 7 [id number] #### [facility] [address] [place] [address] Lipid Panelon 07-09-2024 Cholesterol [Mass/Vol] 112 mg/dL Low 120-200 [facility] Comment on above: Performed By: #### 2 [id number] #### [facility] [address] [place] [address] Cholesterol in HDL [Mass/Vol] 41 mg/dL Invalid Interpretation Code [facility] Comment on above: Result Comment: '>= 60 LOW RISK' '<= 40 HIGH RISK' Performed By: #### 2 [id number] #### [facility] [address] [place] [address] Cholesterol in LDL [Mass/Vol] 59 mg/dL Normal <=129 [facility] Comment on above: Performed By: #### 2 [id number] #### [facility] [address] [place] [address] Cholesterol in VLDL [Mass/Vol] 20 mg/dL Normal 7-40 [facility] Comment on above: Performed By: #### 2 [id number] #### [facility] [address] [place] [address] Triglyceride [Mass/Vol] 100 mg/dL Normal <=149 [facility] Comment on above: Performed By: #### 2 [id number] #### [facility] [address] [place] [address] Pre-Visit Planningon 025 Pre-Visit Planning Pre-Visit Planning From: Valarie Solis To: Jose Grace MD; Sent: 07/06/2024 11:32:39 EST Subject: Pre-Visit Planning Due Date/Time: 07/06/2024 11:32:00 EST Caller Name: ERIC ALICJA Bharathi; Caller Number: , Ms Dr. Grace. During a pre-visit planning chart review, I noted the following documentation in the medical record: Current Problem List: Type 2 diabetes mellitus. Current Medication List: gabapentin and metformin. 07/26/2023 Office Visit Note: Diabetic Foot Exam: Decreased Monofilament Sensation Foot: Left - Abnormal, Right - Abnormal. Bunions/Foot Deformity: Left - Abnormal, Right - Abnormal. Foot Exam Result: Abnormal foot exam. Foot Exam Findings: Flat footed without sensation. Assessment/Plan- Foot exam showed no feeling in either foot. Continue to monitor and work on BS control. Advised Podiatry checks. Based on your medical judgment, can you please clarify which, if any, of the following conditions/complicati ons are present? I can update the Chronic Problem List with your response if you would like. -Type 2 diabetes mellitus with peripheral neuropathy -Other (please specify): In responding to this request, please exercise your independent professional judgment. The fact that a question is asked does not imply that any particular answer is desired or expected. If you have any questions, please feel free to contact me at extension [phone]. Thank you! Valarie Solis LPN Clinical Expressive Art Therapist [place] [id number] Extension: [phone] [email or web address] From: Jose Grace MD To: Valarie Solis; Sent: 07/09/2024 09:09:48 EST Subject: RE: Pre-Visit Planning Caller Name: ALICJA REYES; Caller Number: H , M -Type 2 diabetes mellitus with peripheral neuropathy, Yes he has it and we discussed it today at his visit. [facility] Pre-Visit Planning Pre-Visit Planning From: Valarie Solis To: Jose Grace MD; Sent: 07/06/2024 11:03:26 EST Subject: Pre-Visit Planning Due Date/Time: 07/06/2024 11:03:00 EST Caller Name: ALICJA REYES; Caller Number: H , M Ms Dr. Grace. During a pre-visit planning chart review, I noted the following documentation in the medical record indicates that this patient had BMI of 36.48 on 05/18/2024 and a diagnosis of GERD, HTN, SOB on exertion, and TYpe 2 diabetes mellitus with hypercholesterolemia noted on Current Problem List. If BMI during this current visit is greater than 35: Based on your medical judgment, can you further clarify the following? I can update the Chronic Problem List with your response if you would like. -Morbid obesity (please also include additional diagnosis to reflect current BMI) -Severe obesity with serious comorbidity in adult (please also include additional diagnosis to reflect current BMI) -Other (please specify): In responding to this request, please exercise your independent professional judgment. The fact that a question is asked does not imply that any particular answer is desired or expected. If you have any questions, please feel free to contact me per TEAMS or . Thank you! Valarie Solis LPN Clinical Documentation Improvement [place] [id number] TEAMS or [email or web address] From: Ruiz REYNOLDS, Jose Thompson To: Valarie Solis; Sent: 07/09/2024 07:49:46 EST Subject: RE: Pre-Visit Planning Caller Name: ALICJA REYES; Caller Number: , Added Morbid Obesity. [facility] U Microalbon 07-09-2024 Albumin DL <= 20 mg/L (U) [Mass/Vol] 10.5 mg/dL High 0.0-1.9 [facility] Comment on above: Performed By: #### 1 [id number] #### [facility] [address] [place] [address] eGFRon 07-09-2024 eGFR 59 mL/min/1.73 m2 Normal >=59 [facility] Comment on above: Performed By: #### 1 [id number] #### [facility] [address] [place] [id number] Provider Letteron 07-02-2024 Provider Letter Provider Letter July 02, 2024 ALICJA REYES [address] [place] [phone] : 1955 Dear Alicja , We have been trying to reach you with no success. You have an appointment with Dr. Tao on 07/23/2024 which will need to be rescheduled since he/she will be out of the office that day. Please contact the office at the number listed below to get this appointment rescheduled at your earliest convenience. Thank you for your prompt attention to this matter. Sincerely, [facility] [address] [place] [address] [facility] EMG 2 Extremitieson 05-22-20 24 [facility] A generalized proces s such as a polyneuropathy which is axonal loss in type and moderate to severe in degree electrically Carpal tunnel syndrome bilaterally, moderate right and mild left, may be overestimated given polyneuropathy Cervical radiculopathy can not be excluded [facility] 11-12 Nerveson [facility] A generalized proces s such as a polyneuropathy which is axonal loss in type and moderate to severe in degree electrically Carpal tunnel syndrome bilaterally, moderate right and mild left, may be overestimated given polyneuropathy Cervical radiculopathy can not be excluded [facility] Ambulatory Visit Summaryon 1 07-19-2023 Ambulatory Visit Summary Ambulatory Visit Summary ALICJA REYES :1955 Visit Date:05/18/2024 Ambulatory Visit Instructions Your Diagnosis Former smoker BMI 36.0-36.9,adult Exogenous obesity Your Care Team Attending Physician - MARINO KEARNS CNP Primary Care Physician - Jose Grace MD This Is Your Medications List Misc Prescription (Misc DME Prescription) amlodipine (amLODIPine 5 mg Tab) atorvastatin (atorvastatin 40 mg Tab) cyanocobalamin (cyanocobalamin 1000 mcg Tab) lisinopril (lisinopril 40 mg Tab) magnesium oxide (magnesium oxide 400 mg Tab) metformin (Glucophage XR 500 mg Tab-ER) metoprolol (metoprolol 25 mg ER Tab) multivitamin (Therapeutic Multiple Vitamin Tab) naproxen (Aleve) potassium chloride (potassium chloride 10 mEq Cap-ER) tamsulosin (tamsulosin 0.4 mg Cap) Procedures Performed Arthroscopy, back surgery, Carpal tunnel release, Colonoscopy, hand and elbow surgery LEFT, Hand tendon repaired, Spinal fusion. Discharge Vitals Temperature (Oral) 36.8 ???C Heart Rate (Peripheral) 70 Respiratory Rate 18 Blood Pressure 124/78 Height 175.3 cm Height 69 in Weight 112.1 kg Weight 247.138 lb BMI 36.48 What to do next Scheduled Follow-Up Appointments Tuesday 8:00 AM EST With: Where: [facility] [address] [address]- Tuesday 8:15 AM EST With: Bryant TAO MD Where: [facility] [place] [address] [place] [address]- Medications What How Much When Instructions Unchanged amlodipine (amLODIPine 5 mg Tab) See instructions TAKE 1 TABLET DAILY Unchanged atorvastatin (atorvastatin 40 mg Tab) 1 Tablets By Mouth Every day Unchanged cyanocobalamin (cyanocobalamin 1000 mcg Tab) 1 Tablets By Mouth Every day Unchanged lisinopril (lisinopril 40 mg Tab) 1 Tablets By Mouth Every day Unchanged magnesium oxide (magnesium oxide 400 mg Tab) 400 Milligram By Mouth 3 times a day dose change-last magnesium level completed - Unchanged metformin (Glucophage XR 500 mg Tab-ER) 2 Tablets By Mouth 2 times a day Unchanged metoprolol (metoprolol 25 mg ER Tab) 1 Tablets By Mouth Every day [facility] ([facility] Prescription) 'Number 1' Glucometer and test strips testing BS twice daily- will bring equipment to TCM f/ u to update brand Unchanged multivitamin (Therapeutic Multiple Vitamin Tab) See instructions Oral Daily Unchanged naproxen (Aleve) 220 Milligram By Mouth Every 12 hours se as needed Unchanged potassium chloride (potassium chloride 10 mEq Cap-ER) See instructions TAKE 1 CAPSULE BY MOUTH EVERY DAY Unchanged tamsulosin (tamsulosin 0.4 mg Cap) 1 Capsules By Mouth Once a day (in the evening) Allergies CeleBREX (Anxiety, Unknown) Problems Ongoing - Any problem that you are currently receiving treatment for. Alcohol abuse BPH without urinary obstruction Diabetic nephropathy associated with type 2 diabetes mellitus Diastolic dysfunction Dizziness Edema Elevated PSA Fatigue Feeling of incomplete bladder emptying Gastroesophageal reflux disease without esophagitis [facility] discharge follow-up Hypercholesterolemia Hypokalemia Hypomagnesemia Hypotonic neurogenic bladder Incomplete bladder emptying Kidney stone Major depressive disorder, recurrent, moderate Murmur PIN (prostatic intraepithelial neoplasia) Primary hypertension Prostate cancer screening Recurrent UTI Right flank pain SOB (shortness of breath) on exertion Tachycardia Type 2 diabetes mellitus with hypercholesterolemia Urinary retention Historical - Any problem that you are no longer receiving treatment for. Acid reflux Diabetes mellitus Patient Survey You may receive a survey via text or e-mail asking about your office visit. Please share your experience with us by completing your survey. We appreciate your feedback and thank you for choosing us for your care. [facility] Family Medicine Office/Clini c Noteon 05-18-2024 Family Medicine Office/Clinic Note Family Medicine Office/Clinic Note HPI Staff Alicja is a 69 year old male presenting with 4 fingers are numb on right hand Onset: Started a month ago Doesn't remember doing anything to this Tried: Aleve daily A little swollen History of Present Illness 69 [address] old patient of Dr. Grace presents today for evaluation of numbness and tingling of the 2nd, 3rd, & 4th fingers of the right hand. He states this has been happening for about 1 month now. He denies any injury to the right shoulder or elbow. He has not taken anything for this and reports it is annoying. Review of Systems PHQ Score Initial Depression Screen Score: 0 SCORE Physical Exam Vitals & Measurements T: 36.8 ???C(Oral) HR: 70(Peripheral) RR: 18 BP: 124/78 SpO2: 99% HT: 69 in HT: 175.3 cm WT: 112.1 kg WT: 247.138 lb BMI: 36.48 General: alert, no acute distress Skin: warm, dry Neck: Trachea midline, no adenopathy, no tenderness Cardiovascular: regular rate and rhythm, normal peripheral perfusion Respiratory: Lungs CTA, respirations non labored Extremities: no deformity, no trauma Neurological: oriented x 4, LOC appropriate for age motor strength decreased on right, sensation decreased on right, speech normal Assessment/Plan 1. Numbness or tingling (R20.0: Anesthesia of skin) Awaiting results of the EMG Will refer to ortho or neurology pending the EMG results f/u 4 weeks Ordered: gabapentin, 100 mg = 1 cap(s), Oral, Once a day (at bedtime), # 30 cap(s), Refills(s) 0, Pharmacy: [id number], 175.3, cm, 05/18/24 7:58:00 EST, Height/Length Dosing, 112.1, kg, 05/18/24 7:58:00 EST, Weight Dosing EMG Right Lower Extremity (RLE) [facility] [place]ulatory Referral 2. Former smoker (Z87.891: Personal history of nicotine dependence) Encouraged to continue as a non-smoker 3. BMI 36.0-36.9,adult (Z68.36: Body mass index [BMI] 36.0-36.9, adult) The standard range for ages 18 and older is >=18.5 and < 25 kg/m2. Your BMI today was above this range, this falls in the overweight to obese category and there are medical benefits to weight loss. We can offer counselling, referral, and/or medical support in addressing this problem. Your BMI and weight management will be followed at subsequent visits. Ordered: omeprazole, 20 mg = 1 cap(s), Oral, Daily, # 90 cap(s), Refills(s) 0, Pharmacy: [id number], 175.3, cm, 05/18/24 7:58:00 EST, Height/Length Dosing, 112.1, kg, 05/18/24 7:58:00 EST, Weight Dosing 4. 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 Your BMI today was above this range, this falls in the overweight to obese category and there are medical benefits to weight loss. We can offer counselling, referral, and/or medical support in addressing this problem. Your BMI and weight management will be followed at subsequent visits. Ordered: omeprazole, 20 mg = 1 cap(s), Oral, Daily, # 90 cap(s), Refills(s) 0, Pharmacy: [id number], 175.3, cm, 05/18/24 7:58:00 EST, Height/Length Dosing, 112.1, kg, 05/18/24 7:58:00 EST, Weight Dosing Paresthesia of skin (R20.2: Paresthesia of skin) Discussed CCM program with patient and he declined. Total time spent preparing the chart, conducting of the encounter with the patient and family and time spent documenting, reviewing, and ordering tests was 30 minutes. Follow-up No qualifying data available Patient Education Paresthesia, Rysa-tf-[id number] Problem List/Past Medical History Ongoing Alcohol abuse BPH without urinary obstruction Diabetic nephropathy associated with type 2 diabetes mellitus Diastolic dysfunction Dizziness Edema Elevated PSA Fatigue Feeling of incomplete bladder emptying Gastroesophageal reflux disease without esophagitis [facility] discharge follow-up Hypercholesterolemia Hypokalemia Hypomagnesemia Hypotonic neurogenic bladder Incomplete bladder emptying Kidney stone Major depressive disorder, recurrent, moderate Murmur PIN (prostatic intraepithelial neoplasia) Primary hypertension Prostate cancer screening Recurrent UTI Right flank pain SOB (shortness of breath) on exertion Tachycardia Type 2 diabetes mellitus with hypercholesterolemia Urinary retention Historical Acid reflux Diabetes mellitus Procedure/Surgical History Arthroscopy, back surgery, Carpal tunnel release, Colonoscopy, hand and elbow surgery LEFT, Hand tendon repaired, Spinal fusion. Medications Aleve, 220 mg, Oral, q12hr amLODIPine 5 mg Tab, See Instructions, 1 refills atorvastatin 40 mg Tab, 40 mg= 1 tab(s), Oral, Daily, 1 refills cyanocobalamin 1000 mcg Tab, 1000 mcg= 1 tab(s), Oral, Daily gabapentin 100 mg Cap, 100 mg= 1 cap(s), Oral, Once a day (at bedtime) Glucophage XR 500 mg Tab-ER, 1000 mg= 2 tab(s), Oral, BID, 1 refills lisinopril 20 mg Tab lisinopril 40 mg Tab, 40 mg= 1 tab(s), Oral, Daily, 4 refills magnesium oxide 400 mg Tab, 400 mg, Oral, (more content not included)... [facility] Comment on above: Result Comment: Elec tronically Signed By: MARINO KEARNS CNP\.oliver\Date and Time Signed: 05/18/24 08:48 EST Magnesiumon 02-28-2024 Magnesium [Mass/Vol] 0.5 mg/dL Abnormal 1.3-2.4 [facility] Comment on above: Result Comment: Crit ical Result S_M.5 Called to and read back by: NOBLE OLIVAS at: 02/28/2024 15:00:56 by:[email or web address] Critical Result Verified by Repeat Analysis Performed By: #### 2 [id number] #### [facility] [address] [place] [address] CHEMISTRYOrdered By: SYSTEM SYSTEM on 02-22-2024 Albumin [Mass/Vol] 4.1 g/dL Normal 3.3 - 5.0 gm/dL R emisol Chem Anion gap [Moles/Vol] 15 mmol/L Normal 6 - 16 mEq/L R emisol Chem Calcium [Mass/Vol] 8.4 mg/dL Low 8.9 - 11.1 mg/dL Remisol Chem Chloride [Moles/Vol] 101 mmol/L Normal 101 - 111 mmol/ L Remisol Chem CO2 [Moles/Vol] 26 mmol/L Normal 21 - 31 mmol/L Remis ol Chem Creatinine [Mass/Vol] 1.3 mg/dL Normal 0.5 - 1.3 mg/d L Remisol Chem eGFR 59 mL/min/1.73 m2 Normal >=59mL/min /1.73 m2 Remisol Chem Glucose [Mass/Vol] 274 mg/dL High 55 - 199 mg/dL Re misol Chem Phosphate [Mass/Vol] 2.4 mg/dL Normal 1.9 - 4.6 mg/dL Rem[facility] Chem Potassium [Moles/Vol] 4.1 mmol/L Normal 3.5 - 5.3 mmol /L Rem[facility] Chem Sodium [Moles/Vol] 138 mmol/L Normal 135 - 145 mmol/L Rem[facility] Chem Urea nitrogen [Mass/Vol] 14 mg/dL Normal 5 - 21 mg/dL Rem[facility] Chem Urea nitrogen/Creatinine [Mass ratio] 11 mg/mg Normal 10 - 20 Rem[facility] Chem Renal Panelon 02-22-2024 Albumin [Mass/Vol] 4.1 g/dL Normal 3.3-5.0 [facility] Comment on above: Performed By: #### 1 [id number] #### [facility] [address] [place] [address] Anion gap [Moles/Vol] 15 mmol/L Normal 6-16 [facility] Comment on above: Performed By: #### 1 [id number] #### [facility] [address] [place] [address] Calcium [Mass/Vol] 8.4 mg/dL Low 8.9-11.1 [facility] Comment on above: Performed By: #### 1 [id number] #### [facility] [address] [place] [address] Chloride [Moles/Vol] 101 mmol/L Normal 101-111 [facility] Comment on above: Performed By: #### 1 [id number] #### [facility] [address] [place] [address] CO2 [Moles/Vol] 26 mmol/L Normal 21-31 [facility] Comment on above: Performed By: #### 1 [id number] #### [facility] [address] [place] [address] Creatinine [Mass/Vol] 1.3 mg/dL Normal 0.5-1.3 [facility] Comment on above: Performed By: #### 1 [id number] #### [facility] [address] [place] [address] Glucose [Mass/Vol] 274 mg/dL High 55-199 [facility] Comment on above: Performed By: #### 1 [id number] #### [facility] [address] [place] [address] Phosphate [Mass/Vol] 2.4 mg/dL Normal 1.9-4.6 [facility] Comment on above: Performed By: #### 1 [id number] #### [facility] [address] [place] [address] Potassium [Moles/Vol] 4.1 mmol/L Normal 3.5-5.3 [facility] Comment on above: Performed By: #### 1 [id number] #### [facility] [address] [place] [address] Sodium [Moles/Vol] 138 mmol/L Normal 135-145 [facility] Comment on above: Performed By: #### 1 [id number] #### [facility] [address] [place] [address] Urea nitrogen [Mass/Vol] 14 mg/dL Normal 5-21 [facility] Comment on above: Performed By: #### 1 [id number] #### [facility] [address] [place] [address] Urea nitrogen/Creatinine [Mass ratio] 11 No Units Normal 10-20 [facility] Comment on above: Performed By: #### 1 [id number] #### [facility] [address] [place] [address] eGFRon 02-22-2024 eGFR 59 mL/min/1.73 m2 Normal >=59 [facility] Comment on above: Order Comment: Order added by Discern Expert. Performed By: #### 1 [id number] #### [facility] [address] [place] [address] CHEMISTRYOrdered By: SYSTEM SYSTEM on 01-30-2024 Magnesium [Mass/Vol] 0.5 mg/dL Invalid Interpretation Code 1.3 - 2.4 mg/dL [facility] S Comment on above: Result Comment: Crit ical Result Verified by Repeat Analysis called to Marcin Grace by [email or web address] at 01/30/2024 19:19:23 EDT Results Verified By Repeat Analysis Magnesiumon 01-30-2024 Magnesium [Mass/Vol] 0.5 mg/dL Abnormal 1.3-2.4 [facility] Comment on above: Result Comment: Crit ical Result Verified by Repeat Analysis called to Marcin Grace by [id number] at 01/30/2024 19:19:23 EDT Results Verified By Repeat Analysis Performed By: #### 2 [id number] #### [facility] [address] [place] [address] Magnesium [Mass/Vol] 0.5 mg/dL Abnormal 1.3-2.4 [facility] Comment on above: Result Comment: Crit ical Result Verified by Repeat Analysis Performed By: #### 2 [id number] #### [facility] [address] [place] [address] [facility] 01-18-20 [facility] Case Information Case Priority: None Programs: -- Referral Source: Crisis Intervention Specialist Referral Reason: Care coordination Case Type: Transition Care Management Risk Score: -- Case Status: Enrolled (January 03, 2024) Date Assigned: January 02, 2024 Assigned By: Alicja Castellon Date Enrolled: January 03, 2024 Assigned Primary Personnel: Alicja Castellon Assigned Secondary Personnel: -- Case Physician: Jose Grace MD Ongoing Alcohol abuse BPH without urinary obstruction Diabetic nephropathy associated with type 2 diabetes mellitus Diastolic dysfunction Dizziness Edema Elevated PSA Fatigue Feeling of incomplete bladder emptying Gastroesophageal reflux disease without esophagitis [facility] discharge follow-up Hypercholesterolemia Hypokalemia Hypomagnesemia Hypotonic neurogenic bladder Incomplete bladder emptying Kidney stone Major depressive disorder, recurrent, moderate Murmur PIN (prostatic intraepithelial neoplasia) Primary hypertension Prostate cancer screening Recurrent UTI Right flank pain SOB (shortness of breath) on exertion Tachycardia Type 2 diabetes mellitus with hypercholesterolemia Urinary retention Historical Acid reflux Diabetes mellitus Procedure/Surgical History Arthroscopy, back surgery, Carpal tunnel release, Colonoscopy, hand and elbow surgery LEFT, Hand tendon repaired, Spinal fusion. Home Medications Aleve, 220 mg, Oral, q12hr, Self Directed amLODIPine 5 mg Tab, See Instructions atorvastatin 40 mg Tab, 40 mg= 1 tab(s), Oral, Daily, 1 refills cyanocobalamin 1000 mcg Tab, 1000 mcg= 1 tab(s), Oral, Daily Glucophage XR 500 mg Tab-ER, 1000 mg= 2 tab(s), Oral, BID, 1 refills lisinopril 40 mg Tab, 40 mg= 1 tab(s), Oral, Daily magnesium oxide 400 mg Tab, 400 mg= 1 tab(s), Oral, BID metoprolol 25 mg ER Tab, 25 mg= 1 tab(s), Oral, Daily, 6 refills Misc DME Prescription omeprazole 20 mg Cap-DR, 20 mg= 1 cap(s), Oral, Daily potassium chloride 10 mEq Cap-ER, See Instructions, 3 refills tamsulosin 0.4 mg Cap, 0.4 mg= 1 cap(s), Oral, qPM Therapeutic Multiple Vitamin Tab, See Instructions Allergies CeleBREX (Anxiety, Unknown) Social History Alcohol - Medium Risk, 11/15/2012 Current, Beer, Daily, Alcohol use interferes with work or home: No. Drinks more than intended: No. Others hurt by drinking: No. Ready to change: No. Household alcohol concerns: No., 12/29/2023 Substance Abuse - Denies Substance Abuse, 11/15/2012 Tobacco - Low Risk, 11/15/2012 Former smoker, quit more than 30 days ago, quit 2005 Tobacco Use:. Smokeless tobacco user within last 30 days Smokeless Tobacco Use:. chewing tobacco, Ready to change: No. Household tobacco concerns: No. Yes, 01/13/2024 Family History Primary malignant neoplasm of colon: Father. Screenings and Assessments 01/03/24 10:49:00 Result Name Value Comment Phone Call Monitoring Consent Agreed to continue call Phone Verification Patient Information Full name, street address and date of verified CM Program Enrollment Provides verbal consent for enrollment Goals and Interventions Care Plan Progress Note TCM#3- Patient states he is doing 'pretty good.' Patient notes he had mag level checked last week and it was low. Patient notes he increased his mag ox to 3 times daily. Reminded patient not to adjust medications on his own. Patient does need a refill- requesting to NATHAN (message sent to provider). Patient states he does feel better with the increase dose. Patient denies any weakness, palpitations, or N/V. Patients current ETOH intake is 4 beers daily. Reminded patient of effects of ETOH and that it can lower mag levels. Patient unable to monitor BP at home. Patient is eating well. Patient is drinking 1 large power aid zero daily. Denies any issues with bowel or urinary system. Patient is sleeping 'fine.' Patient denies any further questions or concerns. Communication Events Date: January 18, 2024 Method: Phone call Type: Outbound Duration (min): 6 Outcome: Case discussion Contact Type: Patient Contact Name: ALICJA REYES Notes: TCM#3- see tcm note. Created By: Alicja Castellon Date: January 12, 2024 Method: Phone call Type: Outbound Duration (min): 1 Outcome: Left message-voicemail Contact Type: Complex managed care directorperforming arts road manager Name: Alicja Castellon Notes: TCM#2- message left for return call. Created By: Alicja Castellon Date: January 03, 2024 Method: Phone call Type: Outbound Duration (min): 12 Outcome: Case discussion Contact Type: complaint coordinator Contact Name: Alicja Castellon Notes: TCM#1- see tcm note. Created By: Alicja Castellon Date: January 02, 2024 Method: Phone call Type: Outbound Duration (min): 1 Outcome: Left message-voicemail Contact Type: complaint coordinator Contact Name: Alicja Castellon Notes: TCM#1- left vm for return call. Created By: Alicja Castellon [facility] Ambulatory Visit Summaryon 0 01-13-2024 Ambulatory Visit Summary Ambulatory Visit Summary ALICJA REYES :1955 Visit Date:01/13/2024 Ambulatory Visit Instructions Your Diagnosis HTN (hypertension) Your Care Team Attending Physician - Buster REYNOLDS, Javier Garvin Primary Care Physician - Ruiz REYNOLDS, Jose Thompson Referring Physician - NONE, XXXX This Is Your Medications List Misc Prescription (Misc DME Prescription) amlodipine (amLODIPine 5 mg Tab) atorvastatin (atorvastatin 40 mg Tab) cyanocobalamin (cyanocobalamin 1000 mcg Tab) lisinopril (lisinopril 40 mg Tab) magnesium oxide (magnesium oxide 400 mg Tab) metformin (Glucophage XR 500 mg Tab-ER) metoprolol (metoprolol 25 mg ER Tab) multivitamin (Therapeutic Multiple Vitamin Tab) naproxen (Aleve) omeprazole (omeprazole 20 mg Cap-DR) potassium chloride (potassium chloride 10 mEq Cap-ER) tamsulosin (tamsulosin 0.4 mg Cap) Procedures Performed Arthroscopy, back surgery, Carpal tunnel release, Colonoscopy, hand and elbow surgery LEFT, Hand tendon repaired, Spinal fusion. Discharge Vitals Heart Rate (Peripheral) 79 Respiratory Rate 18 Blood Pressure 138/78 Height 175.3 cm Height 69 in Weight 110.9 kg Weight 243.98 lb BMI 36.09 What to do next Scheduled Follow-Up Appointments Tuesday 8:00 AM EST With: Where: [facility] [address] [address]- Tuesday 8:15 AM EST With: EMMY REYNOLDS, Bryant Vogel Where: [facility] [address] [place] [address]- Medications What How Much When Instructions Unchanged amlodipine (amLODIPine 5 mg Tab) See instructions TAKE 1 TABLET DAILY Unchanged atorvastatin (atorvastatin 40 mg Tab) 1 Tablets By Mouth Every day Unchanged cyanocobalamin (cyanocobalamin 1000 mcg Tab) 1 Tablets By Mouth Every day Unchanged lisinopril (lisinopril 40 mg Tab) 1 Tablets By Mouth Every day Unchanged magnesium oxide (magnesium oxide 400 mg Tab) 1 Tablets By Mouth 2 times a day Unchanged metformin (Glucophage XR 500 mg Tab-ER) 2 Tablets By Mouth 2 times a day Unchanged metoprolol (metoprolol 25 mg ER Tab) 1 Tablets By Mouth Every day Unchanged Misc Prescription (Misc DME Prescription) 'Number 1' Glucometer and test strips testing BS twice daily- will bring equipment to TCM f/ u to update brand Unchanged multivitamin (Therapeutic Multiple Vitamin Tab) See instructions Oral Daily Unchanged naproxen (Aleve) 220 Milligram By Mouth Every 12 hours se as needed Unchanged omeprazole (omeprazole 20 mg Cap-DR) 1 Capsules By Mouth Every day Unchanged potassium chloride (potassium chloride 10 mEq Cap-ER) See instructions TAKE 1 CAPSULE BY MOUTH EVERY DAY Unchanged tamsulosin (tamsulosin 0.4 mg Cap) 1 Capsules By Mouth Once a day (in the evening) Allergies CeleBREX (Anxiety, Unknown) Problems Ongoing - Any problem that you are currently receiving treatment for. Alcohol abuse BPH without urinary obstruction Diabetic nephropathy associated with type 2 diabetes mellitus Diastolic dysfunction Dizziness Edema Elevated PSA Fatigue Feeling of incomplete bladder emptying Gastroesophageal reflux disease without esophagitis Hematuria Hospital discharge follow-up Hypercholesterolemia Hypokalemia Hypomagnesemia Hypotonic neurogenic bladder Incomplete bladder emptying Kidney stone Major depressive disorder, recurrent, moderate Murmur PIN (prostatic intraepithelial neoplasia) Primary hypertension Prostate cancer screening Recurrent UTI Right flank pain SOB (shortness of breath) on exertion Tachycardia Type 2 diabetes mellitus with hypercholesterolemia Urinary retention Historical - Any problem that you are no longer receiving treatment for. Acid reflux Diabetes mellitus Patient Survey You may receive a survey via text or e-mail asking about your office visit. Please share your experience with us by completing your survey. We appreciate your feedback and thank you for choosing us for your care. Normal [facility] Heart and Vascular Office/Cl inic Noteon 01-13-2024 Heart and Vascular Office/Clinic Note Heart and Vascular Office/Clinic Note Chief Complaint 2 month follow up HTN- Patient denies CP, Palpitations, SOB History of Present Illness The patient is a 68-year-old male with past medical history of hypertension, diabetes, dyslipidemia, who presents for a scheduled follow-up appointment. He was seen in the office a couple of months ago due to hypertension. Most recently, he was admitted with hypomagnesemia, which was felt related to alcohol abuse. He reports no symptoms; he mentioned to me that most recently, he had an episode of palpitations while he was in the hospital, however denies any after that. He specifically denies syncope, presyncope, chest pain or shortness of breath. Review of Systems PHQ Score Initial Depression Screen Score: 0 SCORE ROS - Provider Constitutional: no fever, no chills, no fatigue Skin:no rash, no lesions ENMT: no ear pain, no sore throat, no congestion. Respiratory: no shortness of breath, no cough, no wheezing. Cardiovascular: no chest pain, yes palpitations, no edema. Gastrointestinal: no nausea, no vomiting, no diarrhea, no GI bleeding. Genitourinary: no dysuria, no frequencyno hematuria Musculoskeletal: no back pain, no trauma. Neurologic: no headache, no dizziness, no numbness, no weakness. Psychiatric: no sleeping problems, no irritability, no mood swings/depression. Heme/Lymph: no bleeding tendency, no bruising tendency, no petechiae, Allergy/Immuno logic: no seasonal allergies, no food allergies, no recurrent infections Physical Exam Vitals & Measurements HR: 79(Peripheral) RR: 18 BP: 138/78 SpO2: 99% HT: 69 in HT: 175.3 cm WT: 110.9 kg WT: 243.98 lb BMI: 36.09 General: alert, no acute distress Neck: Supple, noJVD nocarotid bruit Cardiovascular: regular rate and rhythm, no murmur normal peripheral perfusion Respiratory: Lungs CTAB, respirations non labored Extremities: no edema left lower extremity. no edema right lower extremity Neurological: oriented x 4, LOC appropriate for age, speech normal Skin: Warm, dry, intact- no rash or concerning lesions Procedure (08/02/2023 08:40 EST Echo Transthoracic Complete) Interpretation Summary No comparison study is available. Ejection Fraction = 65-70%. Grade I diastolic dysfunction, (abnormal relaxation pattern). The left ventricular wall motion is normal. There is Trace mitral regurgitation. Right ventricular systolic pressure is 19 mmHg. [1] (08/08/2023 15:47 EST NM Myocardial Spect Rest/Stress 1 Day) CONCLUSIONS: 1. Normal adequate Lexiscan/MPI. Negative for ischemia by electrocardiogram and myocardial perfusion imaging. 2. Normal left ventricular size and function with an ejection fraction of 67%. 3. Normal TID of 0.80. 4. The patient tolerated the procedure well. 5. This is a low risk study. [1] Assessment/Plan 1. HTN (hypertension) (I10: Essential (primary) hypertension) Blood pressure is well-controlled. I was unable to appreciate any stigmata of angina, congestive heart failure. He did have an episode of palpitations during the most recent hospital admission, I offered him a heart monitor, however, he is declining it. Recommend continuation of current treatment. Follow-up No qualifying data available As needed Problem List/Past Medical History Ongoing Alcohol abuse BPH without urinary obstruction Diabetic nephropathy associated with type 2 diabetes mellitus Diastolic dysfunction Dizziness Edema Elevated PSA Fatigue Feeling of incomplete bladder emptying Gastroesophageal reflux disease without esophagitis Hematuria Hospital discharge follow-up Hypercholesterolemia Hypokalemia Hypomagnesemia Hypotonic neurogenic bladder Incomplete bladder emptying Kidney stone Major depressive disorder, recurrent, moderate Murmur PIN (prostatic intraepithelial neoplasia) Primary hypertension Prostate cancer screening Recurrent UTI Right flank pain SOB (shortness of breath) on exertion Tachycardia Type 2 diabetes mellitus with hypercholesterolemia Urinary retention Historical Acid reflux Diabetes mellitus Procedure/Surgical History Arthroscopy, back surgery, Carpal tunnel release, Colonoscopy, hand and elbow surgery LEFT, Hand tendon repaired, Spinal fusion. Medications Aleve, 220 mg, Oral, q12hr amLODIPine 5 mg Tab, See Instructions atorvastatin 40 mg Tab, 40 mg= 1 tab(s), Oral, Daily, 1 refills cyanocobalamin 1000 mcg Tab, 1000 mcg= 1 tab(s), Oral, Daily Glucophage XR 500 mg Tab-ER, 1000 mg= 2 tab(s), Oral, BID, 1 refills lisinopril 40 mg Tab, 40 mg= 1 tab(s), Oral, Daily magnesium oxide 400 mg Tab, 400 mg= 1 tab(s), Oral, BID metoprolol 25 mg ER Tab, 25 mg= 1 tab(s), Oral, Daily, 6 refills Misc DME Prescription omeprazole 20 mg Cap-DR, 20 mg= 1 cap(s), Oral, Daily potassium chloride 10 mEq Cap-ER, See Instructions, 3 refills tamsulosin 0.4 mg Cap, 0.4 mg= 1 cap(s), Oral, qPM Therapeutic Multiple Vitamin Tab, See Instructions (more content not included)... Normal [facility] Comment on above: Result Comment: Elec tronically Signed By: Buster REYNOLDS, Javier Garvin\.br\Date and Time Signed: 01/13/24 09:18 EDT CHEMISTRYOrdered By: SYSTEM SYSTEM on 01-11-2024 Free PSA [Mass/Vol] 0.3 ng/mL Invalid Interpretation Code Remisol [facility] Comment on above: Interpretive Data: T he concentration of free PSA and total PSA determined with assays from different manufacturers can vary due to differences in assay methods and specificity. Values obtained with different tow car driver's assays cannot be used interchangeably. The methodology used to obtain this result was chemiluminescence using [employer]'s Access Hybritech PSA reagent and [employer] Hybritech free PSA reagent. Free PSA/Total PSA [Mass fraction] 16.7 % Low >=25.0% Rem[facility] Magnesium [Mass/Vol] 0.9 mg/dL Invalid Interpretation Code 1.3 - 2.4 mg/dL [facility] Comment on above: Result Comment: Crit ical Result Verified by Repeat Analysis Critical Result S_M.9 Called to and read back by: DR KATZ at: 01/11/2024 19:10:59 by:BAB Prostate specific Ag [Mass/Vol] 1.8 ng/mL Normal 0.1 - 3.5 ng/mL [facility] Comment on above: Interpretive Data: T he concentration of PSA determined by different manufacturers can vary due to differences in assay methods and reagent specificity. Values obtained from different assay methods cannot be used interchangeably. The methodology used for this result was chemiluminescence using [employer]'s Access Hybritech PSA reagent. Magnesiumon 01-11-2024 Magnesium [Mass/Vol] 0.9 mg/dL Abnormal 1.3-2.4 [facility] Comment on above: Result Comment: Crit ical Result Verified by Repeat Analysis Critical Result S_M.9 Called to and read back by: DR KATZ at: 01/11/2024 19:10:59 by:GALO Performed By: #### [id number] #### [facility] [address] [place] [address] Ambulatory Visit Summaryon 0 01-10-2024 Ambulatory Visit Summary Ambulatory Visit Summary ALICJA REYES :1955 Visit Date:01/10/2024 Ambulatory Visit Instructions Your Diagnosis Incomplete bladder emptying Hypotonic neurogenic bladder BPH without urinary obstruction Elevated PSA PIN (prostatic intraepithelial neoplasia) Your Care Team Attending Physician - EMMY REYNOLDS, Bryant Vogel Primary Care Physician - Ruiz REYNOLDS, Jose Thompson This Is Your Medications List Misc Prescription (Misc DME Prescription) acetaminophen (acetaminophen 325 mg Tab) amlodipine (amLODIPine 5 mg Tab) amoxicillin (amoxicillin 500 mg Cap) atorvastatin (atorvastatin 40 mg Tab) cyanocobalamin (cyanocobalamin 1000 mcg Tab) lisinopril (lisinopril 40 mg Tab) magnesium oxide (magnesium oxide 400 mg Tab) metformin (Glucophage XR 500 mg Tab-ER) metoprolol (metoprolol 25 mg ER Tab) multivitamin (Therapeutic Multiple Vitamin Tab) omeprazole (omeprazole 20 mg Cap-DR) potassium chloride (potassium chloride 10 mEq Cap-ER) tamsulosin (tamsulosin 0.4 mg Cap) Procedures Performed Arthroscopy, back surgery, Carpal tunnel release, hand and elbow surgery LEFT, Hand tendon repaired, Spinal fusion. Discharge Vitals Heart Rate (Peripheral) 94 Blood Pressure 138/74 Height 174 cm Height 69 in Weight 110 kg Weight 242 lb BMI 36.33 What to do next Scheduled Follow-Up Appointments Tuesday 8:00 AM EDT With: Where: [address] [address]- Tuesday 9:00 AM EDT With: Buster REYNOLDS, Javier Garvin Where: [facility] Tuesday 8:00 AM EST With: Where: [address] [address]- Tuesday 8:15 AM EST With: Bryant TAO MD Where: [facility] [address] [place] [address]- You Need to Schedule the Following Appointments Follow Up with Bryant TAO MD, URL When: Comments: 6 mos Where: [address] [address]- Medications What How Much When Instructions Unchanged acetaminophen (acetaminophen 325 mg Tab) 2 Tablets By Mouth Every 6 hours as needed for Pain Unchanged amlodipine (amLODIPine 5 mg Tab) See instructions TAKE 1 TABLET DAILY Unchanged amoxicillin (amoxicillin 500 mg Cap) 1 Capsules By Mouth Every 12 hours Unchanged atorvastatin (atorvastatin 40 mg Tab) 1 Tablets By Mouth Every day Unchanged cyanocobalamin (cyanocobalamin 1000 mcg Tab) 1 Tablets By Mouth Every day Unchanged lisinopril (lisinopril 40 mg Tab) 1 Tablets By Mouth Every day Unchanged magnesium oxide (magnesium oxide 400 mg Tab) 1 Tablets By Mouth 2 times a day Unchanged metformin (Glucophage XR 500 mg Tab-ER) 2 Tablets By Mouth 2 times a day Unchanged metoprolol (metoprolol 25 mg ER Tab) 1 Tablets By Mouth Every day Unchanged Misc Prescription (Misc DME Prescription) 'Number 1' Glucometer and test strips testing BS twice daily- will bring equipment to TCM f/ u to update brand Unchanged multivitamin (Therapeutic Multiple Vitamin Tab) See instructions Oral Daily Unchanged omeprazole (omeprazole 20 mg Cap-DR) 1 Capsules By Mouth Every day Unchanged potassium chloride (potassium chloride 10 mEq Cap-ER) See instructions TAKE 1 CAPSULE BY MOUTH EVERY DAY Unchanged tamsulosin (tamsulosin 0.4 mg Cap) 1 Capsules By Mouth Once a day (in the evening) Allergies CeleBREX (Anxiety, Unknown) Problems Ongoing - Any problem that you are currently receiving treatment for. Alcohol abuse BPH without urinary obstruction Diabetic nephropathy associated with type 2 diabetes mellitus Diastolic dysfunction Dizziness Edema Elevated PSA Fatigue Feeling of incomplete bladder emptying Gastroesophageal reflux disease without esophagitis Hematuria Hospital discharge follow-up Hypercholesterolemia Hypokalemia Hypomagnesemia Hypotonic neurogenic bladder Incomplete bladder emptying Kidney stone Major depressive disorder, recurrent, moderate Murmur PIN (prostatic intraepithelial neoplasia) Primary hypertension Prostate cancer screening Recurrent UTI Right flank pain SOB (shortness of breath) on exertion Tachycardia Type 2 diabetes mellitus with hypercholesterolemia Urinary retention Historical - Any problem that you are no longer receiving treatment for. Acid reflux Diabetes mellitus Patient Survey You may receive a survey via text or e-mail asking about your office visit. Please share your experience with us by completing your survey. We appreciate your feedback and thank you for choosing us for your care. Normal [facility] Urology Office/Clinic Noteon 01-10-2024 Urology Office/Clinic Note Urology Office/Clinic Note Chief Complaint follow up HPI Staff 4 mos with PSA. Previous Dx: Elevated PSA, PIN, BPH with urinary obstruction, feeling of incomplete bladder emptying, and urinary retention. S/p TRUS/bx intuitive 09/09/23. MRI of prostate 07/21/23. *Flomax 0.4 mg qPM. pt states he is just here for follow up, no new concerns. pt states he still caths himself 2x daily PSA: 07/13/22 - 0.43 04/04/23 - 6.10 Dysuria: _no Incomplete bladder emptying: _no Hematuria: _no Frequency: _no Urgency: _no Nocturia: _no Stream: _weak Leaking: _no Post void dripping: _no Wearing pads/ Depends: _no Urge incontinence: _no Stress incontinence: _no Incontinence without Sensory Awareness: _no Abdominal pain: _no Flank pain: _no Sexual complaints: _no History of Present Illness Tests reviewed: reviewed UA, ucx I have reviewed the previous health record information and history for this patient from Dr. Tao. I have reviewed and verified the staff HPI to be accurate for this encounter. Review of Systems PHQ Score Initial Depression Screen Score: 0 SCORE ROS - Provider Constitutional: denies weight loss, denies hot flashes. Eyes: denies eye problems. Gastrointestinal: denies nausea, denies vomiting. Cardiovascular: denies chest pain or angina. Integumentary: no dryness Musculoskeletal: denies musculoskeletal symptoms. ENMT: denies otolaryngeal symptoms. Respiratory: no shortness of breath. Heme/Lymph: denies easy bleeding tendency, denies easy bruising tendency. Psychiatric: no confusion, no anxiety. Genitourinary: See HPI. Physical Exam Vitals & Measurements HR: 94(Peripheral) BP: 138/74 HT: 69 in HT: 174 cm WT: 110 kg WT: 242 lb BMI: 36.33 General Appearance: alert, no distress, well nourished, well developed male. Assessment/Plan 1. Incomplete bladder emptying (R33.9: Retention of urine, unspecified) 06/04/23 - [facility] ER due to chills and dizziness after dealing with a UTI for a few weeks. Found to have distended bladder with >1600mL. Had catheter placed with 2L output. Started on Tamsulosin 0.4 mg qd. Also given Cipro [address] AP wo con - Catheter in place. Unremarkable prostate and seminal vesicles. Punctate R renal stone. Modest bilateral hydroureteronephrosis through UVJs. 06/28/23 - Rosa removed/void trial 06/22/23 - Nurse visit, PVR 977, pt refused cath. 06/23/23 - Taught CIC. 07/01/23 - Per message, avg residuals 40 oz, was told to increase CIC to BID. 07/12/23 - Per message, pt cathing BID, residuals ~20 cc. recommended increasing to TID, UACS, BUN/CR, and stat ASTRID ordered. 07/14/23 - BUN 16. Crea 1.27. eGFR >50. UCx light growth of mixed skin nithya. ASTRID - Dilation of the distal ureters possibly related to bladder distension. Bladder wall thickening and large bladder volume, consider TALAMANTES. 07/15/23 - Per test results, pt to CIC q4-6hr until total urine output is <500 cc each time he caths. PVR (cc): 07/27/23 - 670 [random] 09/22/23 - 656 [random] [1] S/p Cysto 11/28/23 - Unobstructed prostate, moderate hypertrophy, 3cm long, no median lobe. Severe bladder trabeculations and retained urine and fluid from bladder function test. S/p Urodynamics 11/28/23 - First CIC at 7am and 7pm. Voiding on own ~3-4x/day. Has been measuring ~40oz outputs. UA today shows trace-intact blood and trace leuks. States he is currently on amoxicillin from recent ER visit and was found to have UTI. Educated pt he will be colonized due to catheterization. Discussed he is not obstructed so is not a candidate for prostate procedures. -Increase CIC 3x/day 2. Hypotonic neurogenic bladder (N31.9: Neuromuscular dysfunction of bladder, unspecified) See #1. 3. BPH without urinary obstruction (N40.0: Benign prostatic hyperplasia without lower urinary tract symptoms) MRI of prostate 07/21/23 [facility] Prostate volume 26 cc. Grossly distended urinary bladder with partially visualized bilateral hydroureter. TALAMANTES is suspected and rosa cath should be contemplated. [2] IPSS 20 (22). Not taking any BPH meds. Not a candidate for TALAMANTES procedures as prostate is not obstructed as found on recent cysto. -See #1 4. Elevated PSA (R97.20: Elevated prostate specific antigen [PSA]) PSA: 06/22/11 - 0.41 11/09/18 - 0.41 01/10/20 - 0.36 02/03/21 - 0.44 07/13/22 - 0.43 04/04/23 - 6.1 MRI of prostate 07/21/23 [facility] [place] - A focal area involving the anterior aspect of the R peripheral zone at the level of the mid gland measuring 5 x 4 mm. No gross or subcapsular extension is seen. PI-RADS 4. S/p TRUS/bx intuitive 09/09/23. Path report neg for malignancy. PIN is present. [3] -6 mos w/ PSA 5. PIN (prostatic intraepithelial neoplasia) (N42.31: Prostatic intraepithelial neoplasia) S/p TRUS/bx intuitive 09/09/23. Path reveals PIN. [4] Overall the patient has excepted the fact that his bladder no longer works well. He is doing well with clean intermittent catheterization but does admit to volumes up to 1.2 L p (more content not included)... Normal [facility] Comment on above: Result Comment: Elec tronically Signed By: Bryant TAO MD\.br\Date and Time Signed: 01/10/24 09:02 EDT\.br\Electronically Co-Signed By: Alis Velásquez\.br\Date and Time Co-Signed: 01/10/24 08:59 EDT Ambulatory Visit Summaryon 0 01-05-2024 Ambulatory Visit Summary Ambulatory Visit Summary ALICJA REYES :1955 Visit Date:01/05/2024 Ambulatory Visit Instructions Your Diagnosis Hospital discharge follow-up Hypomagnesemia BMI 35.0-35.9,adult Class 1 obesity due to excess calories in adult Former smoker Smokeless tobacco use Your Care Team Attending Physician - Jose Grace MD Primary Care Physician - Jose Grace MD This Is Your Medications List Misc Prescription (Misc DME Prescription) acetaminophen (acetaminophen 325 mg Tab) amlodipine (amLODIPine 5 mg Tab) atorvastatin (atorvastatin 40 mg Tab) cyanocobalamin (cyanocobalamin 1000 mcg Tab) famotidine (Pepcid 20 mg Tab) levofloxacin (Levaquin 500 mg Tab) lisinopril (lisinopril 40 mg Tab) magnesium oxide (magnesium oxide 400 mg Tab) metformin (Glucophage XR 500 mg Tab-ER) metoprolol (metoprolol 25 mg ER Tab) multivitamin (Therapeutic Multiple Vitamin Tab) potassium chloride (potassium chloride 10 mEq Cap-ER) tamsulosin (tamsulosin 0.4 mg Cap) Procedures Performed Arthroscopy, back surgery, Carpal tunnel release, hand and elbow surgery LEFT, Hand tendon repaired, Spinal fusion. Discharge Vitals Temperature (Temporal Artery) 36.6 ?C Heart Rate (Peripheral) 84 Respiratory Rate 16 Blood Pressure 130/82 Height 175.26 cm Height 69 in Weight 110.0 kg Weight 242 lb BMI 35.81 What to do next Scheduled Follow-Up Appointments Tuesday 8:15 AM EDT With: Bryant TAO MD Where: [facility] [place] [address] [place] [address]- Tuesday 8:00 AM EDT With: Where: [address] [address]- Tuesday 9:00 AM EDT With: Buster REYNOLDS, Javier Garvin Where: [facility] Tuesday 8:00 AM EST With: Where: [address] [address]- Medications What How Much When Why Instructions Unchanged acetaminophen (acetaminophen 325 mg Tab) 2 Tablets By Mouth Every 6 hours as needed for Pain Unchanged amlodipine (amLODIPine 5 mg Tab) See instructions TAKE 1 TABLET DAILY Unchanged atorvastatin (atorvastatin 40 mg Tab) 1 Tablets By Mouth Every day Unchanged cyanocobalamin (cyanocobalamin 1000 mcg Tab) 1 Tablets By Mouth Every day Unchanged famotidine (Pepcid 20 mg Tab) 1 Tablets By Mouth 2 times a day Hypomagnesemia Hypokalemia Gastroesophageal reflux disease without esophagitis Dizziness BMI 37.0-37.9, adult Class 1 obesity due to excess calories in adult Smokeless tobacco use Former smoker Unchanged levofloxacin (Levaquin 500 mg Tab) 1 Tablets By Mouth Every 24 hours Duration: 10 Days Unchanged lisinopril (lisinopril 40 mg Tab) 1 Tablets By Mouth Every day Unchanged magnesium oxide (magnesium oxide 400 mg Tab) 1 Tablets By Mouth 2 times a day Unchanged metformin (Glucophage XR 500 mg Tab-ER) 2 Tablets By Mouth 2 times a day Unchanged metoprolol (metoprolol 25 mg ER Tab) 1 Tablets By Mouth Every day Unchanged Misc Prescription ([facility] D[facility] Prescription) 'Number 1' Glucometer and test strips testing BS twice daily- will bring equipment to TCM f/ u to update brand Unchanged multivitamin (Therapeutic Multiple Vitamin Tab) See instructions Oral Daily Unchanged potassium chloride (potassium chloride 10 mEq Cap-ER) See instructions TAKE 1 CAPSULE BY MOUTH EVERY DAY Unchanged tamsulosin (tamsulosin 0.4 mg Cap) 1 Capsules By Mouth Once a day (in the evening) Allergies CeleBREX (Anxiety, Unknown) Problems Ongoing - Any problem that you are currently receiving treatment for. Alcohol abuse BPH with urinary obstruction Diabetic nephropathy associated with type 2 diabetes mellitus Diastolic dysfunction Dizziness Edema Elevated PSA Fatigue Feeling of incomplete bladder emptying Gastroesophageal reflux disease without esophagitis Hematuria Hospital discharge follow-up Hypercholesterolemia Hypokalemia Hypomagnesemia Incomplete bladder emptying Kidney stone Major depressive disorder, recurrent, moderate Murmur PIN (prostatic intraepithelial neoplasia) Primary hypertension Prostate cancer screening Recurrent UTI Right flank pain SOB (shortness of breath) on exertion Tachycardia Type 2 diabetes mellitus with hypercholesterolemia Urinary retention Historical - Any problem that you are no longer receiving treatment for. Acid reflux Diabetes mellitus Patient Survey You may receive a survey via text or e-mail asking about your office visit. Please share your experience with us by completing your survey. We appreciate your feedback and thank you for choosing us for your care. Normal [facility] Family Medicine Office/Clini c Noteon 01-05-2024 Family Medicine Office/Clinic Note Family Medicine Office/Clinic Note HPI Staff Alicja is a 68 year old male presenting for hospital follow up TCM: Hospital: [facility] [facility] [place]: 12/29/23 Discharge date: 12/30/23 Symptoms the patient presented with: sent by pcp for hypomagnesia Current concerns: doesn't care for Dacia Bañuelos the [employer] TE[employer] ARCHIT[employer] she took care of him in the hospital and wanted to keep him a second night and wasn't doing anything that needed him to stay him so they had words History of Present Illness - Here for hospital follow up - NO other concerns - Feeling better - Still drinking 6-12 beers a day - Thom made his heart palpate Review of Systems PHQ Score Initial Depression Screen Score: 0 SCORE Physical Exam Vitals & Measurements T: 36.6 ?C(Temporal Artery) HR: 84(Peripheral) RR: 16 BP: 130/82 SpO2: 100% HT: 69 in HT: 175.26 cm WT: 110.0 kg WT: 242 lb BMI: 35.81 General: alert, no acute distress ENMT: oral mucosa moist, Cardiovascular: regular rate and rhythm, normal peripheral perfusion Respiratory: Lungs CTA, respirations non labored Extremities: no deformity, no trauma Neurological: oriented x 4, LOC appropriate for age, CN II-XII intact, motor strength equal & normal bilaterally, speech normal Abdomen: Soft, Nontender, Non-distended, + BS Assessment/Plan 1. Hospital discharge follow-up (Z09: Encounter for follow-up examination after completed treatment for conditions other than malignant neoplasm) - Reviewed TCM. - Reviewed D/C summary - Discussed with the hospital Ordered: Body Mass Index (BMI) documented 3008F Current smokeless tobacco user 1035F Depression Screening Negative 3352F Influenza immunization administered or previously received 4274F Magnesium Level Most recent diastolic blood pressure 80-89 mm Hg 3079F Patient screen for fall risk: no falls in last year or 1 fall with no injury in last year 1101F Systolic BP 130-139 mm Hg (Most Recent) 3075F Urine Culture 2. Hypomagnesemia (E83.42: Hypomagnesemia) - Recheck mag next week. - Follow up with Nephrology. - Continue with mag suppliment Ordered: Body Mass Index (BMI) documented 3008F Current smokeless tobacco user 1035F Depression Screening Negative 3352F Influenza immunization administered or previously received 4274F Magnesium Level Most recent diastolic blood pressure 80-89 mm Hg 3079F Patient screen for fall risk: no falls in last year or 1 fall with no injury in last year 1101F Systolic BP 130-139 mm Hg (Most Recent) 3075F Urine Culture 3. Urinary retention (R33.9: Retention of urine, unspecified) - Will switch to amoxicillin to help as he did not tolerate levaquin Ordered: Magnesium Level Urine Culture 4. Alcohol abuse (F10.10: Alcohol abuse, uncomplicated) - Discussed in detail with the patient. - Pt is still in denial Ordered: Magnesium Level Urine Culture 5. BMI 35.0-35.9,adult (Z68.35: Body mass index [BMI] 35.0-35.9, adult) - BMI education added Ordered: Body Mass Index (BMI) documented 3008F Current smokeless tobacco user 1035F Depression Screening Negative 3352F Influenza immunization administered or previously received 4274F Magnesium Level Most recent diastolic blood pressure 80-89 mm Hg 3079F Patient screen for fall risk: no falls in last year or 1 fall with no injury in last year 1101F Systolic BP 130-139 mm Hg (Most Recent) 3075F Urine Culture 6. Class 1 obesity due to excess calories in adult (E66.09: Other obesity due to excess calories) - Diet and exercise advised Ordered: Body Mass Index (BMI) documented 3008F Current smokeless tobacco user 1035F Depression Screening Negative 3352F Influenza immunization administered or previously received 4274F Magnesium Level Most recent diastolic blood pressure 80-89 mm Hg 3079F Patient screen for fall risk: no falls in last year or 1 fall with no injury in last year 1101F Systolic BP 130-139 mm Hg (Most Recent) 3075F Urine Culture 7. Former smoker (Z87.891: Personal history of nicotine dependence) - Please continue to not smoke Ordered: Body Mass Index (BMI) documented 3008F Current smokeless tobacco user 1035F Depression Screening Negative 3352F Influenza immunization administered or previously received 4274F Magnesium Level Most recent diastolic blood pressure 80-89 mm Hg 3079F Patient screen for fall risk: no falls in last year or 1 fall with no injury in last year 1101F Systolic BP 130-139 mm Hg (Most Recent) 3075F Urine Culture 8. Smokeless tobacco use (Z72.0: Tobacco use) - Please stop using nicotine Ordered: Body Mass Index (BMI) documented 3008F Current smokeless tobacco user 1035F Depression Screening Negative 3352F Influenza immunization administered or previously received 4274F Magnesium Level Most recent diastolic blood pressure 80-89 mm Hg 3079F Patient screen for fall risk: no falls in last year or 1 fall with no injury in last year 1101F Systolic BP 130-139 mm (more content not included)... Normal [facility] Comment on above: Result Comment: Elec tronically Signed By: Ruiz REYNOLDS, Jose Thompson\.br\Date and Time Signed: 01/05/24 08:26 EDT [facility] 01-03-20 [facility] Case Information Case Priority: None Programs: -- Referral Source: Crisis Intervention Specialist Referral Reason: Care coordination Case Type: Transition Care Management Risk Score: -- Case Status: Enrolled (January 03, 2024) Date Assigned: January 02, 2024 Assigned By: Alicja Castellon Date Enrolled: January 03, 2024 Assigned Primary Personnel: Alicja Castellon Assigned Secondary Personnel: -- Case Physician: Jose Grace MD Problems Ongoing Alcohol abuse BPH with urinary obstruction Diabetic nephropathy associated with type 2 diabetes mellitus Diastolic dysfunction Dizziness Edema Elevated PSA Fatigue Feeling of incomplete bladder emptying Gastroesophageal reflux disease without esophagitis Hematuria Hypercholesterolemia Hypokalemia Hypomagnesemia Incomplete bladder emptying Kidney stone Major depressive disorder, recurrent, moderate Murmur PIN (prostatic intraepithelial neoplasia) Primary hypertension Prostate cancer screening Recurrent UTI Right flank pain SOB (shortness of breath) on exertion Tachycardia Type 2 diabetes mellitus with hypercholesterolemia Urinary retention Historical Acid reflux Diabetes mellitus Procedure/Surgical History Arthroscopy, back surgery, Carpal tunnel release, hand and elbow surgery LEFT, Hand tendon repaired, Spinal fusion. Home Medications acetaminophen 325 mg Tab, 650 mg= 2 tab(s), Oral, q6hr, PRN amLODIPine 5 mg Tab, See Instructions atorvastatin 40 mg Tab, 40 mg= 1 tab(s), Oral, Daily, 1 refills cyanocobalamin 1000 mcg Tab, 1000 mcg= 1 tab(s), Oral, Daily Glucophage XR 500 mg Tab-ER, 1000 mg= 2 tab(s), Oral, BID, 1 refills Levaquin 500 mg Tab, 500 mg= 1 tab(s), Oral, q24hr lisinopril 40 mg Tab, 40 mg= 1 tab(s), Oral, Daily magnesium oxide 400 mg Tab, 400 mg= 1 tab(s), Oral, BID metoprolol 25 mg ER Tab, 25 mg= 1 tab(s), Oral, Daily, 6 refills Misc DME Prescription Pepcid 20 mg Tab, 20 mg= 1 tab(s), Oral, BID potassium chloride 10 mEq Cap-ER, See Instructions, 3 refills tamsulosin 0.4 mg Cap, 0.4 mg= 1 cap(s), Oral, qPM Therapeutic Multiple Vitamin Tab, See Instructions Allergies CeleBREX (Anxiety, Unknown) Social History Alcohol - Medium Risk, 11/15/2012 Current, Beer, Daily, Alcohol use interferes with work or home: No. Drinks more than intended: No. Others hurt by drinking: No. Ready to change: No. Household alcohol concerns: No., 12/29/2023 Substance Abuse - Denies Substance Abuse, 11/15/2012 Tobacco - Low Risk, 11/15/2012 Former smoker, quit more than 30 days ago, quit 2005 Tobacco Use:. Smokeless tobacco user within last 30 days Smokeless Tobacco Use:. Cigarettes, Household tobacco concerns: No. Yes, 12/27/2023 Family History Primary malignant neoplasm of colon: Father. Screenings and Assessments 01/03/24 10:49:00 Result Name Value Comment Phone Call Monitoring Consent Agreed to continue call Phone Verification Patient Information Full name, street address and date of verified CM Program Enrollment Provides verbal consent for enrollment Goals and Interventions Care Plan Progress Note Admit Date: 12/29/23 Date of Discharge: 12/30/23 Follow-up appointment scheduled? yes, TCM f/u Dr. Grace 01/05/24 at 0745 Did you understand your discharge instructions? yes Are you able to follow them? yes Did you receive new medications? yes, cyanocobalamin 1000 mcg QD, Levaquin 500 mg QD x 10 days, lisinopril 40 mg QD, multi vit QD, tylenol 325 two tab q6hr PRN, magnesium oxide increased to BID, STOP- ASA, lisinopril- HCTZ, zofran, DM supplies Have you filled the Rx's? yes Are you taking them as prescribed? yes Are you having difficulty eating or swallowing your pills? no Are you having any stomach upset, diarrhea or constipation? no How are you sleeping? fine Are you having any pain? no Do you have everything you need at home to care for yourself? yes Do you have Home Health? no Called patient for initial Transitional Care Management Program Call. Patient is a moderate readmission risk. Reviewed d/c instructions and dx of: Hypomagnesemia, UTI (urinary tract infection), Hypertensive urgency, Alcohol abuse, Anemia, HLD (hyperlipidemia), Non-insulin dependent type 2 diabetes mellitus, Neurogenic bladder disorder, BPH with urinary obstruction, Chronic GERD, Depression, Obesity, On deep vein thrombosis (DVT) prophylaxis, Abnormal diagnostic test. Medications reconciled with patient list, EHR, and D/C list. Reviewed purpose and side effects of new medications with patient. Patient states he is doing 'good.' Patient does not have BP monitor in home and is unable to check. Patient reports improvement to muscle weakness since hospital stay. He does note some heart fluttering today, he thinks from the ATB. States not steady. Denies racing heart, lightheadedness, or dizziness. Denies N/V, or decreased appetite. Patient reports last BM this am. (more content not included)... Normal [facility] [place] 01-01-2024 Parathyrin.intact [Mass/Vol] 23 pg/mL Invalid Interpretation Code 15-65 [facility] Comment on above: Result Comment: Perf ormed at: [facility] [address] [id number] PhD Malik Fernando Performed By: #### 1 [id number] #### [facility] [address] [place] [address] C Urineon 12-31-2023 Bacteria identified Cx Nom (U) Microbiology PROCEDURE: Urine Culture [R1] SOURCE: U CleanCatch BODY SITE: COLLECTED DATE/TIME: 12/29/2023 15:42 EDT RECEIVED DATE/TIME: 12/29/2023 17:12 EDT START DATE/TIME: 12/29/2023 17:12 EDT FREE TEXT SOURCE: EDDA YING, Dacia BAÑUELOS AGACNP-BC, Dacia FINAL REPORTS Final Report [] Verified Date/Time: 12/31/2023 09:17 EDT 75,000 cfu/ml Enterococcus faecalis SUSCEPTIBILITY RESULTS LEGEND: S=Susceptible, N/R=Not Reported, Blank=Data not available, or drug not advisable or tested, I=Intermediate, ESBL=Extended spectrum beta-lactamase, R=Resistant, TFG=Thymidine-depende nt strain, MAGGI=Beta-lactamase positive, EMERSON=mcg/m;(mg/L), S*=Predicted susceptible interp, R*=Predicted resistant interp Entfaeca Antibiotic EMERSON Dilutn EMERSON Interp Ampicillin <=2 S Ciprofloxacin <=1 S Daptomycin <=1 S Levofloxacin 2 S Linezolid <=2 S Nitrofurantoin <=32 S Penicillin 2 S Rifampin 2 I Tetracycline >8 R Vancomycin 1 S Performing Locations R1: This test was performed at: [facility], [address] [place] [address], [phone] , , [facility] Comment on above: Performed By: #### [id number] #### [facility] [address] [place] [id number] [employer] Message Office Minutizer Office General Message Office --- --- --- --- --- --- --- --- --- From: Nancy Ferreira To: ALICJA REYES Sent: 12/31/23 02:30:27 AM EDT Subject: Discharge Summary Ready to View A summary regarding your recent visit is available in the Documents section of your health record. Normal [facility] Miscellaneous-LCon 12-30 Lab Miscellaneous COMMENT Invalid Interpretation Code [facility] Comment on above: Order Comment: Rando m sample, not 24hr collection Urine Result Comment: Test Ordered: [id number] Magnesium, U Magnesium, U 5.1 mg/dL CB Reference Range: Not Estab. Performed at: [facility] [address] [id number] PhD Malik Fernando Performed By: #### 1 [id number] #### [facility] [address] [place] [address] CHEMISTRYOrdered By: Lab ROP User on 12-30-2023 Glucose [Mass/Vol] 168 mg/dL High 55 - 99 mg/dL FTM C POC Subsection Comment on above: Result Comment: [place] gloria RN/ POC Device SN [id number] 1 Invalid Interpretation Code FT POC Subsection POC User ID [id number] 1 Invalid Interpretation Code FT POC Subsection POC Username NAVEEN AMANDA Invalid Interpretation Code FT POC Subsection Glucose [Mass/Vol] 150 mg/dL High 55 - 99 mg/dL FTM C POC Subsection Comment on above: Result Comment: [place] SOLIZ POC Device SN [id number] 1 Invalid Interpretation Code FT POC Subsection POC User ID [id number] 1 Invalid Interpretation Code FT POC Subsection POC Username NAVEEN AMANDA Invalid Interpretation Code FT POC Subsection CHEMISTRYOrdered By: SYSTEM SYSTEM on 12-30-2023 U Creatinine 29.7 mg/dL Invalid Interpretation Code Remisol Chem Ur Total Protein 19.4 mg/dL Invalid Interpretation Code Remisol Chem Anion gap [Moles/Vol] 15 mmol/L Normal 6 - 16 mEq/L R emisol Chem Calcium [Mass/Vol] 10.0 mg/dL Normal 8.9 - 11.1 mg/dL Remisol Chem Chloride [Moles/Vol] 101 mmol/L Normal 101 - 111 mmol/ L Remisol Chem CO2 [Moles/Vol] 26 mmol/L Normal 21 - 31 mmol/L Remis ol Chem Creatinine [Mass/Vol] 1.2 mg/dL Normal 0.5 - 1.3 mg/d L Remisol Chem eGFR 65 mL/min/1.73 m2 Normal >=59mL/min /1.73 m2 Remisol Chem Glucose [Mass/Vol] 166 mg/dL Normal 55 - 199 mg/dL Re misol Chem Magnesium [Mass/Vol] 1.6 mg/dL Normal 1.3 - 2.4 mg/dL Remisol Chem Potassium [Moles/Vol] 4.9 mmol/L Normal 3.5 - 5.3 mmol /L Remisol Chem Sodium [Moles/Vol] 137 mmol/L Normal 135 - 145 mmol/L Remisol Chem TSH Qn 1.54 m[IU]/L Normal 0.34 - 5.60 mcIU/mL Remisol Chem Urea nitrogen [Mass/Vol] 17 mg/dL Normal 5 - 21 mg/dL Remisol Chem Urea nitrogen/Creatinine [Mass ratio] 14 mg/mg Normal 10 - 20 Remisol Chem Capillary Glucose POCon 12-05 Glucose [Mass/Vol] 168 mg/dL High 55-99 [facility] Comment on above: Result Comment: [place] gloria RN/ Performed By: #### 2 [id number] #### [facility] [address] [place] [address] HEMATOLOGYOrdered By: SYSTEM SYSTEM on 12-30-2023 Basophils/100 WBC (Bld) 1.1 % Normal 0.0 - 2.0 % Remisol Heme Basophils/Leukocytes Auto (Bld) [Pure # fraction] 0.1 E9/L Normal 0.0 - 0.2 E9/L Remisol Heme Eosinophils (Bld) [#/Vol] 0.2 E9/L Normal 0.0 - 0.5 E9/L Remisol Heme Eosinophils/100 WBC (Bld) 3.3 % Normal 0.0 - 8.0 % Remisol Heme Erythrocyte distribution width (RBC) [Ratio] 13.3 % Normal 10.9 - 14.2 % Remisol Heme Hematocrit (Bld) [Volume fraction] 37.9 % Normal 37.7 - 49.0 % Remisol Heme Hemoglobin (Bld) [Mass/Vol] 13.4 g/dL Low 13.5 - 17.5 gm/dL Remisol Heme Lymphocytes (Bld) [#/Vol] 1.5 E9/L Normal 1.0 - 4.0 E9/L Remisol Heme Lymphocytes/100 WBC (Bld) 22.5 % Normal 14.0 - 50.0 % Remisol Heme MCH (RBC) [Entitic mass] 33.8 pg Normal 27.0 - 34.0 pg Remisol Heme MCHC (RBC) [Mass/Vol] 35.2 g/dL Normal 31.4 - 36.0 gm /dL Remisol Heme MCV (RBC) [Entitic vol] 96.0 fL Normal 80.0 - 100.0 fL Remisol Heme Monocytes (Bld) [#/Vol] 0.7 E9/L Normal 0.2 - 1.0 E9/L Remisol Heme Monocytes/100 WBC (Bld) 10.5 % Normal 4.0 - 14.0 % Remisol Heme Neutrophils (Bld) [#/Vol] 4.1 E9/L Normal 2.0 - 7.5 E9/L Remisol Heme Neutrophils/100 WBC (Bld) 62.6 % Normal 36.0 - 75.0 % Remisol Heme Platelet 271.0 E9/L Normal 150.0 - 500.0 E9/L Remisol Heme Platelet mean volume (Bld) [Entitic vol] 7.2 fL Normal 6.4 - 10.8 fL Remisol Heme RBC (Bld) [#/Vol] 4.0 E12/L Low 4.3 - 5.9 E12/L Re misol Heme WBC corrected for nucl RBC Auto (Bld) [#/Vol] 6.6 E9/L Normal 4.0 - 11.0 E9/L Remisol Heme Inpatient Clinical Summaryon 12-30-2023 Inpatient Clinical Summary Inpatient Clinical Summary [address] [address] Clinical Summary Person Information: Name: ERICALICJA Bharathi Age: 68 Years : 1955 Sex: Male PCP: Jose Grace MD Marital Status: Race: White Ethnicity: Non- or Language: Turkmen Visit Id: Visit Reason: Abnormal diagnostic test; SENT BY DR GRACE MAGNESIUM IS LOW Speciality: Acuity: Enc Type: Inpatient Med Service: Medical Arrival: 12/29/2023 13:33:35 Discharge: Dispo Type: Admitted as IP to this Hosp Address: [address] [place] [id number] Provider Notes: Diagnosis: 1:Hypomagnesemia; 2:UTI (urinary tract infection); 3:Hypertensive urgency; 4:Alcohol abuse; 5:Anemia; 6:HLD (hyperlipidemia); 7:Non-insulin dependent type 2 diabetes mellitus; 8:Neurogenic bladder disorder; 9:BPH with urinary obstruction; 10:Chronic GERD; 11:Depression; 12:Obesity; 13:On deep vein thrombosis (DVT) prophylaxis Problems Active Hypomagnesemia Feeling of incomplete bladder emptying PIN (prostatic intraepithelial neoplasia) Diastolic dysfunction Alcohol abuse Murmur Tachycardia Incomplete bladder emptying Kidney stone BPH with urinary obstruction Elevated PSA Recurrent UTI Major depressive disorder, recurrent, moderate SOB (shortness of breath) on exertion Dizziness Urinary retention Hypokalemia Fatigue Edema Type 2 diabetes mellitus with hypercholesterolemia Right flank pain Hematuria Prostate cancer screening Diabetic nephropathy associated with type 2 diabetes mellitus Primary hypertension Gastroesophageal reflux disease without esophagitis Hypercholesterolemia Smoking Status: Former Smoker Functional Status: Sensory Deficits: History of Falls: Mobility Assistance Prior to Admission: Independent ADLs: Independent Current Level of Assistance for Self-Care/Mobility: Cognitive Status: Oriented x 3 Allergies CeleBREX (Unknown) (Anxiety) Measurements: Height: 175.26 cm Weight: 104.2 kg Blood Pressure: 161 mmHg / 100 mmHg BMI: 34.7 kg/m2 Procedures No Procedures Documented Immunizations No Immunizations Documented This Visit Final Med List: acetaminophen (acetaminophen 325 mg Tab) 2 Tablets By Mouth every 6 hours as needed Pain. amlodipine (amLODIPine 5 mg Tab) TAKE 1 TABLET DAILY. Refills: 1. atorvastatin (atorvastatin 40 mg Tab) 1 Tablets By Mouth every day. Refills: 1. cyanocobalamin (cyanocobalamin 1000 mcg Tab) 1 Tablets By Mouth every day. Refills: 0. famotidine (Pepcid 20 mg Tab) 1 Tablets By Mouth 2 times a day. Refills: 0. levofloxacin (Levaquin 500 mg Tab) 1 Tablets By Mouth every 24 hours for 10 Days. Refills: 0. lisinopril (lisinopril 40 mg Tab) 1 Tablets By Mouth every day. Refills: 0. magnesium oxide (magnesium oxide 400 mg Tab) 1 Tablets By Mouth 2 times a day. Refills: 0. metformin (Glucophage XR 500 mg Tab-ER) 2 Tablets By Mouth 2 times a day. Refills: 1. metoprolol (metoprolol 25 mg ER Tab) 1 Tablets By Mouth every day. Refills: 6. multivitamin (Therapeutic Multiple Vitamin Tab) Oral Daily. Refills: 0. potassium chloride (potassium chloride 10 mEq Cap-ER) TAKE 1 CAPSULE BY MOUTH EVERY DAY. Refills: 3. tamsulosin (tamsulosin 0.4 mg Cap) 1 Capsules By Mouth once a day (in the evening). Care Team Members: Attending Physician: Artemio Olivares DO Consulting Physician: Ramos Euceda MD Referring Physician: Follow up: With: Address: When: Ramos Euceda [facility] [address] [address] Business (1) Comments: Call for followup appointment in [place] office With: Address: When: Jose Grace [facility] [place] [address] Business (2) 01/05/2024 7:45 AM Type Location [facility] w[facility] 01/05/2024 7:45 AM 01/05/2024 8:05 AM Confirmed URO Office [facility] [place] [place] 01/10/2024 8:15 AM 01/10/2024 8:30 AM Confirmed Cardiology Follow Up (FT) [facility] [place] 01/13/2024 9:00 AM 01/13/2024 9:15 AM Confirmed Medicare Wellness Subsequent [facility] 07/09/2024 8:00 AM 07/09/2024 9:00 AM Confirmed Patient Education Information: How to Take Your Blood Pressure, [id number]; Form - Blood Pressure Record Sheet; Urinary Tract Infection, Adult, [id number]; Hypomagnesemia cyanocobalamin, levofloxacin, lisinopril, magnesium oxide 400 mg Tab Normal [facility] Inpatient Clinical Summary Inpatient Clinical Summary [address] [address] Clinical Summary Person Information: Name: ALICJA REYES Age: 68 Years : 1955 Sex: Male PCP: Jose Grace MD Marital Status: Race: White Ethnicity: Non- or Language: Turkmen Visit Id: Visit Reason: Abnormal diagnostic test; SENT BY DR GRACE MAGNESIUM IS LOW Speciality: Acuity: Enc Type: Inpatient Med Service: Medical Arrival: 12/29/2023 13:33:35 Discharge: Dispo Type: Admitted as IP to this Hosp Address: [address] [place] [address] Provider Notes: Diagnosis: 1:Hypomagnesemia; 2:UTI (urinary tract infection); 3:Hypertensive urgency; 4:Alcohol abuse; 5:Anemia; 6:HLD (hyperlipidemia); 7:Non-insulin dependent type 2 diabetes mellitus; 8:BPH with urinary obstruction; 9:Chronic GERD; 10:Depression; 11:Obesity; 12:On deep vein thrombosis (DVT) prophylaxis; BMI 37.0-37.9, adult; Dizziness; Gastroesophageal reflux disease without esophagitis; Hypokalemia Problems Active Hypomagnesemia Feeling of incomplete bladder emptying PIN (prostatic intraepithelial neoplasia) Diastolic dysfunction Alcohol abuse Murmur Tachycardia Incomplete bladder emptying Kidney stone BPH with urinary obstruction Elevated PSA Recurrent UTI Major depressive disorder, recurrent, moderate SOB (shortness of breath) on exertion Dizziness Urinary retention Hypokalemia Fatigue Edema Type 2 diabetes mellitus with hypercholesterolemia Right flank pain Hematuria Prostate cancer screening Diabetic nephropathy associated with type 2 diabetes mellitus Primary hypertension Gastroesophageal reflux disease without esophagitis Hypercholesterolemia Smoking Status: Former Smoker Functional Status: Sensory Deficits: History of Falls: Mobility Assistance Prior to Admission: Independent ADLs: Independent Current Level of Assistance for Self-Care/Mobility: Cognitive Status: Oriented x 3 Allergies CeleBREX (Unknown) (Anxiety) Measurements: Height: 175.26 cm Weight: 104.2 kg Blood Pressure: 173 mmHg / 91 mmHg BMI: 34.7 kg/m2 Procedures No Procedures Documented Immunizations No Immunizations Documented This Visit Final Med List: amlodipine (amLODIPine 5 mg Tab) TAKE 1 TABLET DAILY. Refills: 1. aspirin (aspirin 81 mg Oral EC Tab) 1 Tablets By Mouth every day. Refills: 0. atorvastatin (atorvastatin 40 mg Tab) 1 Tablets By Mouth every day. Refills: 1. famotidine (Pepcid 20 mg Tab) 1 Tablets By Mouth 2 times a day. Refills: 0. glipiZIDE (glipiZIDE 5 mg Tab) 2 Tablets By Mouth 2 times a day. Refills: 1. hydrochlorothiazide-l isinopril (hydrochlorothiazide- lisinopril 12.5 mg-20 mg Tab) 1 Tablets By Mouth every day. Refills: 0. magnesium oxide (magnesium oxide 400 mg Tab) 1 Tablets By Mouth every day. Refills: 0. metformin (Glucophage XR 500 mg Tab-ER) 2 Tablets By Mouth 2 times a day. Refills: 1. metoprolol (metoprolol 25 mg ER Tab) 1 Tablets By Mouth every day. Refills: 6. Misc Prescription ([facility] Prescription) Alcohol prep pads Use to [...] once a day Dx E11.9. Refills: 3. ondansetron (Zofran ODT 4 mg Tab-Dis) 1 Tablets By Mouth every 8 hours as needed Nausea/Vomiting. Refills: 0. potassium chloride (potassium chloride 10 mEq Cap-ER) TAKE 1 CAPSULE BY MOUTH EVERY DAY. Refills: 3. tamsulosin (tamsulosin 0.4 mg Cap) 1 Capsules By Mouth once a day (in the evening). Care Team Members: Attending Physician: Artemio Olivares DO Consulting Physician: Ramos Euceda MD Referring Physician: Follow up: With: Address: When: Jose Grace [address] [place] [address] [facility] (2) 01/05/2024 7:45 AM Type [facility] w[facility]TCM [facility] 01/05/2024 7:45 AM 01/05/2024 8:05 AM Confirmed URO Office [facility] [place] 01/10/2024 8:15 AM 01/10/2024 8:30 AM Confirmed Cardiology Follow Up (FT) [facility] [place] 01/13/2024 9:00 AM 01/13/2024 9:15 AM Confirmed [facility] 8:00 AM 07/09/2024 9:00 AM Confirmed Patient Education Information: Normal [facility] Inpatient Patient Summaryon 12-30-2023 Inpatient Patient Summary Inpatient Patient Summary ALICJA REYES :1955 Visit Date:12/29/2023 Inpatient Discharge Instructions Your Care Team Admitting Physician - Artemio Olivares DO Consulting Physician - Ramos Euceda MD Reason for Your Visit abnormal labs Your Diagnosis Hypomagnesemia UTI (urinary tract infection) Hypertensive urgency Alcohol abuse Anemia HLD (hyperlipidemia) Non-insulin dependent type 2 diabetes mellitus Neurogenic bladder disorder BPH with urinary obstruction Chronic GERD Depression Obesity On deep vein thrombosis (DVT) prophylaxis Abnormal diagnostic test Tests Performed PTH Intact -- Results Pending -- Please visit your patient portal for your results or contact your primary care physician. This Is Your Medications List acetaminophen (acetaminophen 325 mg Tab) amlodipine (amLODIPine 5 mg Tab) atorvastatin (atorvastatin 40 mg Tab) cyanocobalamin (cyanocobalamin 1000 mcg Tab) famotidine (Pepcid 20 mg Tab) levofloxacin (Levaquin 500 mg Tab) lisinopril (lisinopril 40 mg Tab) magnesium oxide (magnesium oxide 400 mg Tab) metformin (Glucophage XR 500 mg Tab-ER) metoprolol (metoprolol 25 mg ER Tab) multivitamin (Therapeutic Multiple Vitamin Tab) potassium chloride (potassium chloride 10 mEq Cap-ER) tamsulosin (tamsulosin 0.4 mg Cap) [Image Removed: STOP]Stop taking these medications Misc Prescription (Misc DME Prescription) Misc Prescription (Misc DME Prescription) Misc Prescription (Misc DME Prescription) Misc Prescription (Misc DME Prescription) aspirin (aspirin 81 mg Oral EC Tab) glipiZIDE (glipiZIDE 5 mg Tab) hydrochlorothiazide-l isinopril (hydrochlorothiazide- lisinopril 12.5 mg-20 mg Tab) ondansetron (Zofran ODT 4 mg Tab-Dis) Procedure History Arthroscopy, back surgery, Carpal tunnel release, hand and elbow surgery LEFT, Hand tendon repaired, Spinal fusion. Discharge Vitals Temperature (Axillary) 36.5 ?C Heart Rate (Monitored) 104 Respiratory Rate 20 Blood Pressure 161/100 Height 175.26 cm Weight 104.2 kg BMI 34.7 What to do next Instructions From Your Doctor Event Name Event Result Discharge Activity Ambulate as tolerated, Activity as tolerated Discharge Restrictions No restrictions Discharge Diet(s) Regular, Low Sodium- 2000 mg, Other: Protein fortified diet Pending Diagnostic Test Results Urine culture Discharge Instructions You must decrease your alcohol intake with goal of cessationTake mag oxide as orderedFollow up closely with Dr. Grace for repeat labs, call tuesday for urine culture results Previously Scheduled Follow-Up Appointments 2023 7:45 AM EDT With: Jose Grace MD Where: [address] [address]- Tuesday 8:15 AM EDT With: Bryant TAO MD Where: [facility] [address] [place] [address]- Tuesday 9:00 AM EDT With: Javier Goins MD Where: [facility] Tuesday 8:00 AM EST With: Where: [address] [address]- New Follow Up Appointments after Discharge Follow Up with Jose Grace When: 01/05/2024 07:45 AM EDT Where: [address] [place] [address]- Business (2) Follow Up with Ramos Euceda When: Comments: Call for followup appointment in [place] office Where: [place] [address] [place] [address]- [facility] (1) Medications What How Much When Why Instructions Next Dose New acetaminophen (acetaminophen 325 mg Tab) 2 Tablets By Mouth Every 6 hours as needed for Pain start as new med New cyanocobalamin (cyanocobalamin 1000 mcg Tab) 1 Tablets By Mouth Every day Pickup at [facility]/pharmacy #[id number] 12/31/23 9am New levofloxacin (Levaquin 500 mg Tab) 1 Tablets By Mouth Every 24 hours Duration: 10 Days Pickup at [facility]/pharmacy #[id number] start as new med today New lisinopril (lisinopril 40 mg Tab) 1 Tablets By Mouth Every day Pickup at [facility]pharmacy [facility][id number] 12/31/23 9am New multivitamin (Therapeutic Multiple Vitamin Tab) See instructions Oral Daily Printed Prescription 12/31/23 9am Changed magnesium oxide (magnesium oxide 400 mg Tab) 1 Tablets By Mouth 2 times a day Pickup at [facility]/pharmacy #[id number] 12/30/23 9pm Unchanged amlodipine (amLODIPine 5 mg Tab) See instructions TAKE 1 TABLET DAILY resume Unchanged atorvastatin (atorvastatin 40 mg Tab) 1 Tablets By Mouth Every day 12/31/23 9am Unchanged famotidine (Pepcid 20 mg Tab) 1 Tablets By Mouth 2 times a day Hypomagnesemia Hypokalemia Gastroesophageal reflux disease without esophagitis Dizziness BMI 37.0-37.9, adult Class 1 obesity due to excess calories in adult Smokeless tobacco use Former smoker resume Unchanged metformin (Glucophage XR 500 mg Ta (more content not included)... Normal [facility] Inpatient Patient Summary Inpatient Patient Summary [address] [address] Patient Discharge Instructions PERSON INFORMATION Name: ALICJA REYES Date of : 1955 Current Date: 12/30/2023 12:30:17 PHYSICIANS Admitting Physician: Artemio Olivares DO Primary Care Physician: Jose Grace MD PCP Comment: Discharge Diagnosis: 1:Hypomagnesemia; 2:UTI (urinary tract infection); 3:Hypertensive urgency; 4:Alcohol abuse; 5:Anemia; 6:HLD (hyperlipidemia); 7:Non-insulin dependent type 2 diabetes mellitus; 8:Neurogenic bladder disorder; 9:BPH with urinary obstruction; 10:Chronic GERD; 11:Depression; 12:Obesity; 13:On deep vein thrombosis (DVT) prophylaxis Condition at Discharge: ALICJA REYES has been given the following list of follow-up instructions, prescriptions, and patient education materials: PATIENT FOLLOW-UP INFORMATION Diet: Regular, Low Sodium- 2000 mg, Other: Protein fortified diet Discharge Activity: Ambulate as tolerated, Activity as tolerated Discharge Restrictions: No restrictions Wound Care Instructions: Remove Your Dressing In Days Call Your Doctor For: IF UNABLE TO CONTACT YOUR PHYSICIAN AND YOU FEEL IT IS AN EMERGENCY, GO TO THE NEAREST EMERGENCY ROOM OR CALL 911 Home Treatment: Devices/Equipment: None Special Services: Additional Instructions: You must decrease your alcohol intake with goal of cessation Take mag oxide as ordered Follow up closely with Dr. Grace for repeat labs, call tuesday for urine culture results Primary Care Physician to provide the following pending test results: Urine culture Follow up: With: Address: When: Ramos Euceda [facility] [place] [address] [place] [address] Business (1) Comments: Call for followup appointment in [place] office With: Address: When: Jose Grace [facility] [place] [address] Business (2) 01/05/2024 7:45 AM In the event that this physician does not participate in your insurance network, please consult with your insurance company to find a nearby participating provider. Type Location Start [facility] Follow Up w/TCM [facility] 01/05/2024 7:45 AM 01/05/2024 8:05 AM Confirmed URO Office [facility] 01/10/2024 8:15 AM 01/10/2024 8:30 AM Confirmed Cardiology Follow Up (FT) [facility] [place] 01/13/2024 9:00 AM 01/13/2024 9:15 AM Confirmed Medicare Wellness Subsequent [facility] 07/09/2024 8:00 AM 07/09/2024 9:00 AM Confirmed Comment: I, ERIC, ALICJA D, have received the attached patient education materials/instruction s and have verbalized understanding: Patient Signature Date Clinican/Nurse Signature Date HERE ARE THE MEDICATION CHANGES THAT OCCURRED DURING YOUR HOSPITAL STAY New Medications [id number], [address], [place] [id number], [phone] cyanocobalamin (cyanocobalamin 1000 mcg Tab) 1 Tablets By Mouth every day. Refills: 0. Last Dose: ____Next Dose: ____ levofloxacin (Levaquin 500 mg Tab) 1 Tablets By Mouth every 24 hours for 10 Days. Refills: 0. Last Dose: ____Next Dose: ____ lisinopril (lisinopril 40 mg Tab) 1 Tablets By Mouth every day. Refills: 0. Last Dose: ____Next Dose: ____ Printed Prescriptions multivitamin (Therapeutic Multiple Vitamin Tab) Oral Daily. Refills: 0. Last Dose: ____Next Dose: ____ Other Medications acetaminophen (acetaminophen 325 mg Tab) 2 Tablets By Mouth every 6 hours as needed Pain. Last Dose: ____Next Dose: ____ Medications to Continue Taking That Have Changed [id number] [address] [facility] [place] [id number], [phone] START: magnesium oxide (magnesium oxide 400 mg Tab) 1 Tablets By Mouth 2 times a day. Refills: 0. Last Dose: ____Next Dose: ____ STOP: magnesium oxide (magnesium oxide 400 mg Tab) 1 Tablets By Mouth every day. Refills: 0. Medications to Continue with No Changes Other Medications amlodipine (amLODIPine 5 mg Tab) TAKE 1 TABLET DAILY. Refills: 1. Last Dose: ____Next Dose: ____ atorvastatin (atorvastatin 40 mg Tab) 1 Tablets By Mouth every day. Refills: 1. Last Dose: ____Next Dose: ____ famotidine (Pepcid 20 mg Tab) 1 Tablets By Mouth 2 times a day. Refills: 0. Last Dose: ____Next Dose: ____ metformin (Glucophage XR 500 mg Tab-ER) 2 Tablets By Mouth 2 times a day. Refills: 1. Last Dose: ____Next Dose: ____ metoprolol (metoprolol 25 mg ER Tab) 1 Tablets By Mouth every day. Refills: 6. Last Dose: (more content not included)... Normal [facility] Inpatient Patient Summary Inpatient Patient Summary [address] [place] [address] Patient Discharge Instructions PERSON INFORMATION Name: ALICJA REYES Date of : 1955 Current Date: 12/30/2023 09:11:50 PHYSICIANS Admitting Physician: Artemio Olivares DO Primary Care Physician: Jose Grace MD PCP Comment: Discharge Diagnosis: 1:Hypomagnesemia; 2:UTI (urinary tract infection); 3:Hypertensive urgency; 4:Alcohol abuse; 5:Anemia; 6:HLD (hyperlipidemia); 7:Non-insulin dependent type 2 diabetes mellitus; 8:BPH with urinary obstruction; 9:Chronic GERD; 10:Depression; 11:Obesity; 12:On deep vein thrombosis (DVT) prophylaxis; BMI 37.0-37.9, adult; Dizziness; Gastroesophageal reflux disease without esophagitis; Hypokalemia Condition at Discharge: ALICJA REYES has been given the following list of follow-up instructions, prescriptions, and patient education materials: PATIENT FOLLOW-UP INFORMATION Diet: Discharge Activity: Discharge Restrictions: Wound Care Instructions: Remove Your Dressing In Days Call Your Doctor For: IF UNABLE TO CONTACT YOUR PHYSICIAN AND YOU FEEL IT IS AN EMERGENCY, GO TO THE NEAREST EMERGENCY ROOM OR CALL 911 Home Treatment: Devices/Equipment: None Special Services: Additional Instructions: Primary Care Physician to provide the following pending test results: Follow up: With: Address: When: Jose Grace [facility] [place] [address] Business (2) 01/05/2024 7:45 AM In the event that this physician does not participate in your insurance network, please consult with your insurance company to find a nearby participating provider. Type Location Start [facility] Follow Up w/TCM [facility] 01/05/2024 7:45 AM 01/05/2024 8:05 AM Confirmed URO Office [facility] 01/10/2024 8:15 AM 01/10/2024 8:30 AM Confirmed Cardiology Follow Up (FT) [facility] [place] 01/13/2024 9:00 AM 01/13/2024 9:15 AM Confirmed Medicare Wellness Subsequent [facility] 07/09/2024 8:00 AM 07/09/2024 9:00 AM Confirmed Comment: ERIC Song ROBIN D, have received the attached patient education materials/instruction s and have verbalized understanding: Patient Signature Date Clinican/Nurse Signature Date HERE ARE THE MEDICATION CHANGES THAT OCCURRED DURING YOUR HOSPITAL STAY Medications to Continue with No Changes Other Medications amlodipine (amLODIPine 5 mg Tab) TAKE 1 TABLET DAILY. Refills: 1. Last Dose: ____Next Dose: ____ aspirin (aspirin 81 mg Oral EC Tab) 1 Tablets By Mouth every day. Refills: 0. Last Dose: ____Next Dose: ____ atorvastatin (atorvastatin 40 mg Tab) 1 Tablets By Mouth every day. Refills: 1. Last Dose: ____Next Dose: ____ famotidine (Pepcid 20 mg Tab) 1 Tablets By Mouth 2 times a day. Refills: 0. Last Dose: ____Next Dose: ____ glipiZIDE (glipiZIDE 5 mg Tab) 2 Tablets By Mouth 2 times a day. Refills: 1. Last Dose: ____Next Dose: ____ hydrochlorothiazide-l isinopril (hydrochlorothiazide- lisinopril 12.5 mg-20 mg Tab) 1 Tablets By Mouth every day. Refills: 0. Last Dose: ____Next Dose: ____ magnesium oxide (magnesium oxide 400 mg Tab) 1 Tablets By Mouth every day. Refills: 0. Last Dose: ____Next Dose: ____ metformin (Glucophage XR 500 mg Tab-ER) 2 Tablets By Mouth 2 times a day. Refills: 1. Last Dose: ____Next Dose: ____ metoprolol (metoprolol 25 mg ER Tab) 1 Tablets By Mouth every day. Refills: 6. Last Dose: ____Next Dose: ____ Misc Prescription (Misc DME Prescription) Alcohol prep pads Use to test blood sugars daily Dx E11.9. Refills: 3. Last Dose: ____Next Dose: ____ Misc Prescription (Misc DME Prescription) One Touch Ultra 2 glucose meter kit Use to tests sugars daily E11.9. Refills: 0. Last Dose: ____Next Dose: ____ Misc Prescription (Misc DME Prescription) One touch ultra 2 test strips Use to tests sugars once a day Dx E11.9. Refills: 3. Last Dose: ____Next Dose: ____ Misc Prescription (Misc DME Prescription) Soft click lancets Use to test blood sugars once a day Dx E11.9. Refills: 3. Last Dose: ____Next Dose: ____ ondansetron (Zofran ODT 4 mg Tab-Dis) 1 Tablets By Mouth every 8 hours as needed Nausea/Vomiting. Refills: 0. Last Dose: ____Next Dose: ____ potassium chloride (potassium chloride 10 mEq Cap-ER) TAKE 1 CAPSULE BY MOUTH EVERY DAY. (more content not included)... Normal [facility] Miscellaneous-LCon 12-29 Test Code 329277 Invalid Interpretation Code [facility] Comment on above: Order Comment: Rando m sample, not 24hr collection Urine Result Comment: Юлия ected test code Performed By: #### 1 [id number] #### [facility] [address] [place] [address] Reference Laboratory Testing Ordered By: Dacia BAÑUELOS on 12-30-2023 Test Code [id number] [address] [facility] Comment on above: Result Comment: Юлия ected test code Test Name urine mag Invalid Interpretation Code [facility] TSH With T4fr Reflexon 12-29 TSH Qn 1.54 m[IU]/L Normal 0.34-5.60 [facility] Comment on above: Performed By: #### 1 [id number] #### [facility] [address] [place] [address] CHEMISTRYOrdered By: Lab ROP User on 12-29-2023 Glucose [Mass/Vol] 170 mg/dL High 55 - 99 mg/dL FT C POC Subsection POC Device SN [id number] [address] [facility] POC Subsection POC User ID [id number] [address] [facility] POC Subsection POC Username FAHEEM LUNA Invalid Interpretation Code [facility] POC Subsection CHEMISTRYOrdered By: SYSTEM SYSTEM on 12-29-2023 Magnesium [Mass/Vol] 1.7 mg/dL Normal 1.3 - 2.4 mg/dL [facility] Amphetamines Screen method >1000 ng/mL Ql (U) NEGATIVE 7 (12/29/23 3:43 PM) Normal NEGATIVE [facility] Comment on above: Interpretive Data: N egative Cutoff: <1000 ng/mL Barbiturates Screen Ql (U) NEGATIVE 8 (12/29/23 3:43 PM) Normal NEGATIVE [facility] Comment on above: Interpretive Data: N egative Cutoff: <200 ng/mL Benzodiazepines Ql (U) NEGATIVE 1 (12/29/23 3:43 PM) Normal NEGATIVE [facility] Comment on above: Interpretive Data: N egative Cutoff: <200 ng/mL Cannabinoids Screen Ql (U) NEGATIVE 6 (12/29/23 3:43 PM) Normal NEGATIVE [facility] Comment on above: Interpretive Data: N egative Cutoff: <50 ng/mL Cocaine Ql (U) NEGATIVE 2 (12/29/23 3:43 PM) Normal NEGATIVE [facility] Comment on above: Interpretive Data: N egative Cutoff: <300 ng/mL Opiates Screen Ql (U) NEGATIVE 4 (12/29/23 3:43 PM) Normal NEGATIVE [facility] Comment on above: Interpretive Data: N egative Cutoff: <300 ng/mL Phencyclidine Screen method >25 ng/mL Ql (U) NEGATIVE 5 (12/29/23 3:43 PM) Normal NEGATIVE [facility] Comment on above: Interpretive Data: N egative Cutoff: <25 ng/mL These drug screen results are to be used for medical (i.e., treatment) purposes only. Unconfirmed drug screening results must not be used for non-medical purposes (e.g., employment testing, legal testing). U Fentanyl NEGATIVE 13 (12/29/23 3:43 PM) Normal NEGATIVE [facility] Comment on above: Interpretive Data: N egative Cutoff: <5 ng/mL These drug screen results are to be used for medical (i.e., treatment) purposes only. Unconfirmed drug screening results must not be used for non-medical purposes (e.g., employment testing, legal testing). Ethanol Lvl mg/dL Normal <=11mg/dL [facility] Anion gap [Moles/Vol] 16 mmol/L Normal 6 - 16 mEq/L R emisol Chem Calcium [Mass/Vol] 9.8 mg/dL Normal 8.9 - 11.1 mg/dL [facility] Chloride [Moles/Vol] 103 mmol/L Normal 101 - 111 mmol/ L [facility] Chem CO2 [Moles/Vol] 23 mmol/L Normal 21 - 31 mmol/L Remis ol Chem Cobalamin (Vitamin B12) [Mass/Vol] 156 pg/mL Normal 50 - 1500 pg/mL [facility] Chem Creatinine [Mass/Vol] 1.3 mg/dL Normal 0.5 - 1.3 mg/d L [facility] Chem eGFR 59 mL/min/1.73 m2 Normal >=59mL/min /1.73 m2 [facility] Chem Ferritin [Mass/Vol] 113 ng/mL Normal 24 - 336 ng/mL R emisol Chem Folate [Mass/Vol] 16.3 ng/mL Normal >=6.7ng/mL [facility] Chem Glucose [Mass/Vol] 148 mg/dL Normal 55 - 199 mg/dL Re misol Chem Iron [Mass/Vol] 113 ug/dL Normal 35 - 153 mcg/dL Jah norma Chem Iron binding capacity [Mass/Vol] 336 ug/dL Normal 250 - 400 mcg/dL Rem[facility] Chem LDH 179 [iU]/d Normal 93 - 218 Int._Unit/L [facility] Magnesium [Mass/Vol] 0.7 mg/dL Invalid Interpretation Code 1.3 - 2.4 mg/dL [facility] Comment on above: Result Comment: Crit ical Result Verified by Previous Result Critical Result S_M.7 Called to and read back by: KELSIE CHAN at: 12/29/2023 14:47:41 by:AG Phosphate [Mass/Vol] 2.8 mg/dL Normal 1.9 - 4.6 mg/dL [facility] Chem Potassium [Moles/Vol] 4.2 mmol/L Normal 3.5 - 5.3 mmol /L [facility] Chem Sodium [Moles/Vol] 138 mmol/L Normal 135 - 145 mmol/L [facility] Chem Transferrin [Mass/Vol] 240 mg/dL Normal 200 - 370 mg/dL [facility] Chem Urea nitrogen [Mass/Vol] 19 mg/dL Normal 5 - 21 mg/dL [facility] Chem Urea nitrogen/Creatinine [Mass ratio] 15 mg/mg Normal 10 - 20 [facility] Chem HEMATOLOGYOrdered By: SYSTEM SYSTEM on 12-29-2023 Basophils/100 WBC (Bld) 1.3 % Normal 0.0 - 2.0 % [facility] Heme Basophils/Leukocytes Auto (Bld) [Pure # fraction] 0.1 E9/L Normal 0.0 - 0.2 E9/L [facility]e Eosinophils (Bld) [#/Vol] 0.2 E9/L Normal 0.0 - 0.5 E9/L [facility]e Eosinophils/100 WBC (Bld) 3.2 % Normal 0.0 - 8.0 % [facility]e Erythrocyte distribution width (RBC) [Ratio] 13.0 % Normal 10.9 - 14.2 % [facility] Hematocrit (Bld) [Volume fraction] 38.4 % Normal 37.7 - 49.0 % [facility]e Hemoglobin (Bld) [Mass/Vol] 13.3 g/dL Low 13.5 - 17.5 gm/dL [facility] Lymphocytes (Bld) [#/Vol] 1.7 E9/L Normal 1.0 - 4.0 E9/L [facility] Heme Lymphocytes/100 WBC (Bld) 24.1 % Normal 14.0 - 50.0 % [facility] Heme MCH (RBC) [Entitic mass] 33.3 pg Normal 27.0 - 34.0 pg Rem[facility] Heme MCHC (RBC) [Mass/Vol] 34.7 g/dL Normal 31.4 - 36.0 gm /dL [facility]e MCV (RBC) [Entitic vol] 96.2 fL Normal 80.0 - 100.0 fL [facility]e Monocytes (Bld) [#/Vol] 0.7 E9/L Normal 0.2 - 1.0 E9/L [facility] Heme Monocytes/100 WBC (Bld) 10.6 % Normal 4.0 - 14.0 % [facility] Neutrophils (Bld) [#/Vol] 4.2 E9/L Normal 2.0 - 7.5 E9/L [facility]e Neutrophils/100 WBC (Bld) 60.8 % Normal 36.0 - 75.0 % [facility] Platelet 281.0 E9/L Normal 150.0 - 500.0 E9/L [facility]e Platelet mean volume (Bld) [Entitic vol] 7.2 fL Normal 6.4 - 10.8 fL [facility] Heme RBC (Bld) [#/Vol] 4.0 E12/L Low 4.3 - 5.9 E12/L Re misol Heme Reticulocytes/100 RBC (Bld) 1.4 % Normal 0.5 - 2.2 % [facility] Heme WBC corrected for nucl RBC Auto (Bld) [#/Vol] 6.9 E9/L Normal 4.0 - 11.0 E9/L [facility] Heme Lab Miscellaneous-LCon 12-28 Test Name urine mag Invalid Interpretation Code [facility] Comment on above: Order Comment: Kelsey m sample, not 24hr collection Urine Performed By: #### 1 [id number] #### [facility] [address] [place] [address] Laboratory - Microbiology an d Antimicrobial susceptibilityOrdered By: Amber Jeffries on 12-29-2023 Bacteria identified Cx Nom (U) 75,000 cfu/ml Streptococcus species [facility] URINALYSISOrdered By: SYSTEM SYSTEM on 12-29-2023 Bacteria Auto Ql (U) 1+ /HPF Invalid Interpretation Code Trace/HPF FT UA Auto SS Bilirubin Ql (U) Negative Normal Negativemg/dL FT UA Auto SS Clarity (U) Clear (12/29/23 3:42 PM) Normal Clear [facility] UA Auto SS Color (U) Light-Yellow 3 (12/29/23 3:42 PM) Normal Yellow [facility] UA Auto SS Comment on above: Interpretive Data: M icroscopic readings are only performed on those samples that meet specific criteria set forth by [facility]. Epithelial cells.squamous Auto (Urine sed) [#/Area] 0-2 graded/HPF Invalid Interpretation Code FT UA Auto SS Glucose Ql (U) Trace mg/dL Invalid Interpretation Code Negativemg/dL [facility]A Auto SS Hemoglobin Auto test strip (U) [Mass/Vol] Trace mg/dL Invalid Interpretation Code Negativemg/dL [facility] UA Auto SS Ketones Auto test strip Ql (U) Negative Normal Negativemg/dL [facility] UA Auto SS Leukocyte esterase Auto test strip Ql (U) 500 Maura/uL Maura/uL Invalid Interpretation Code NegativeLeu/uL [facility] UA Auto SS Mucus Auto Ql (U) Negative Normal Negativegr aded/LP F [facility] UA Auto SS Nitrite Auto test strip Ql (U) Negative Normal Negativemg/dL [facility] UA Auto SS pH (U) 5.5 *NA* (12/29/23 3:42 PM) Invalid Interpretation Code 5.0 - 9.0 [facility] UA Auto SS Protein Ql (U) Negative Normal Negativemg/dL [facility] UA Auto SS RBC Ql (U) 0-3 graded/HPF Normal 0-3graded/HPF [facility] UA Auto SS Specific gravity (U) [Rel density] 1.009 *NA* (12/29/23 3:42 PM) Invalid Interpretation Code 1.005 - 1.030 [facility] UA Auto SS Urobilinogen (U) [Mass/Vol] Negative Normal Negativemg/dL [facility] UA Auto SS WBC Auto (Urine sed) [#/Area] >75 graded/HPF Invalid Interpretation Code 0-5graded/HPF [facility] UA Auto SS URINALYSISOrdered By: Dacia BAÑUELOS on 12-29-2023 UA Spec Desc Clean Catch (12/29/23 3:42 PM) Normal [facility] UA Auto SS Ambulatory Visit Summaryon 0 12-27-2023 Ambulatory Visit Summary Ambulatory Visit Summary ALICJA REYES Bharathi :1955 Visit Date:12/27/2023 Ambulatory Visit Instructions Your Diagnosis Hypomagnesemia Hypokalemia Gastroesophageal reflux disease without esophagitis Dizziness BMI 37.0-37.9, adult Class 1 obesity due to excess calories in adult Smokeless tobacco use Former smoker Your Care Team Attending Physician - Jose Grace MD Primary Care Physician - Jose Grace MD This Is Your Medications List famotidine (Pepcid 20 mg Tab) Contact prescribing physician if questions or concerns Misc Prescription (Misc DME Prescription) Misc Prescription (Misc DME Prescription) Misc Prescription (Misc DME Prescription) Misc Prescription (Misc DME Prescription) amlodipine (amLODIPine 5 mg Tab) aspirin (aspirin 81 mg Oral EC Tab) atorvastatin (atorvastatin 40 mg Tab) glipiZIDE (glipiZIDE 5 mg Tab) hydrochlorothiazide-l isinopril (hydrochlorothiazide- lisinopril 12.5 mg-20 mg Tab) magnesium oxide (magnesium oxide 400 mg Tab) metformin (Glucophage XR 500 mg Tab-ER) metoprolol (metoprolol 25 mg ER Tab) ondansetron (Zofran ODT 4 mg Tab-Dis) potassium chloride (potassium chloride 10 mEq Cap-ER) tamsulosin (tamsulosin 0.4 mg Cap) [Image Removed: STOP]Stop taking these medications omeprazole (omeprazole 40 mg Cap-DR) Procedures Performed Arthroscopy, back surgery, Carpal tunnel release, hand and elbow surgery LEFT, Hand tendon repaired, Spinal fusion. Discharge Vitals Temperature (Temporal Artery) 37.0 ?C Heart Rate (Peripheral) 76 Respiratory Rate 16 Blood Pressure 126/80 Height 172 cm Height 68 in Weight 109.8 kg Weight 241.56 lb BMI 37.11 What to do next Scheduled Follow-Up Appointments Tuesday 8:15 AM EDT With: EMMY REYNOLDS, Bryant Vogel Where: [facility] Invalid Interpretation Code [address] [place] [address]- \.br\ Someone Will Contact You Regarding These Appointments\.br\ [facility] External Ambulatory Referral, Nephrology, 12/27/23 8:10:00 EDT, Hypomagnesemia [facility] Ambulatory Visit Summary Ambulatory Visit Summary ALICJA REYES :1955 Visit Date:12/27/2023 Ambulatory Visit Instructions Your Diagnosis Hypomagnesemia Hypokalemia Gastroesophageal reflux disease without esophagitis Dizziness BMI 37.0-37.9, adult Class 1 obesity due to excess calories in adult Smokeless tobacco use Former smoker Your Care Team Attending Physician - Jose Grace MD Primary Care Physician - Jose Grace MD This Is Your Medications List famotidine (Pepcid 20 mg Tab) Contact prescribing physician if questions or concerns Misc Prescription (Misc DME Prescription) Misc Prescription (Misc DME Prescription) Misc Prescription (Misc DME Prescription) Misc Prescription (Misc DME Prescription) amlodipine (amLODIPine 5 mg Tab) aspirin (aspirin 81 mg Oral EC Tab) atorvastatin (atorvastatin 40 mg Tab) glipiZIDE (glipiZIDE 5 mg Tab) hydrochlorothiazide-l isinopril (hydrochlorothiazide- lisinopril 12.5 mg-20 mg Tab) magnesium oxide (magnesium oxide 400 mg Tab) metformin (Glucophage XR 500 mg Tab-ER) metoprolol (metoprolol 25 mg ER Tab) ondansetron (Zofran ODT 4 mg Tab-Dis) potassium chloride (potassium chloride 10 mEq Cap-ER) tamsulosin (tamsulosin 0.4 mg Cap) [Image Removed: STOP]Stop taking these medications omeprazole (omeprazole 40 mg Cap-DR) Procedures Performed Arthroscopy, back surgery, Carpal tunnel release, hand and elbow surgery LEFT, Hand tendon repaired, Spinal fusion. Discharge Vitals Temperature (Temporal Artery) 37.0 ?C Heart Rate (Peripheral) 76 Respiratory Rate 16 Blood Pressure 126/80 Height 172 cm Height 68 in Weight 109.8 kg Weight 241.56 lb BMI 37.11 What to do next Scheduled Follow-Up Appointments Tuesday 8:15 AM EDT With: EMMY REYNOLDS, Bryant Vogel Where: [facility] Invalid Interpretation Code [address] [id number] \.br\ Someone Will Contact You Regarding These Appointments\.br\ [facility] [place], Nephrology, 12/27/23 8:10:00 EDT, Hypomagnesemia [facility] BMPon 12-27-2023 Anion gap [Moles/Vol] 14 mmol/L Normal 6-16 [facility] Comment on above: Performed By: #### 2 [id number] #### [facility] [address] [place] [address] Calcium [Mass/Vol] 8.5 mg/dL Low 8.9-11.1 [facility] Comment on above: Performed By: #### 2 [id number] #### [facility] [address] [place] [address] Chloride [Moles/Vol] 104 mmol/L Normal 101-111 [facility] Comment on above: Performed By: #### 2 601003 #### [facility] [address] [place] [address] CO2 [Moles/Vol] 24 mmol/L Normal 21-31 [facility] Comment on above: Performed By: #### 2 427175 #### [facility] [address] [place] [address] Creatinine [Mass/Vol] 1.5 mg/dL High 0.5-1.3 [facility] Comment on above: Performed By: #### 2 [id number] #### [facility] [address] [place] [address] Glucose [Mass/Vol] 158 mg/dL Normal 55-199 [facility] Comment on above: Performed By: #### 2 [id number] #### [facility] [address] [place] [address] Potassium [Moles/Vol] 4.7 mmol/L Normal 3.5-5.3 [facility] Comment on above: Performed By: #### 2 332007 #### [facility] [address] [place] [address] Sodium [Moles/Vol] 137 mmol/L Normal 135-145 [facility] Comment on above: Performed By: #### 2 [id number] #### [facility] [address] [place] [address] Urea nitrogen [Mass/Vol] 19 mg/dL Normal 5-21 [facility] Comment on above: Performed By: #### 2 337884 #### [facility] [address] [place] [address] Urea nitrogen/Creatinine [Mass ratio] 13 No Units Normal 10-20 [facility] Comment on above: Performed By: #### 2 [id number] #### [facility] [address] [place] [address] CHEMISTRYOrdered By: SYSTEM SYSTEM on 12-27-2023 Anion gap [Moles/Vol] 14 mmol/L Normal 6 - 16 mEq/L R emisol Chem Calcium [Mass/Vol] 8.5 mg/dL Low 8.9 - 11.1 mg/dL Remisol Chem Chloride [Moles/Vol] 104 mmol/L Normal 101 - 111 mmol/ L Remisol Chem CO2 [Moles/Vol] 24 mmol/L Normal 21 - 31 mmol/L Remis ol Chem Creatinine [Mass/Vol] 1.5 mg/dL High 0.5 - 1.3 mg/d L Remisol Chem eGFR 50 mL/min/1.73 m2 Low >=59mL/min /1.73 m2 Remisol Chem Glucose [Mass/Vol] 158 mg/dL Normal 55 - 199 mg/dL Re misol Chem Magnesium [Mass/Vol] 0.9 mg/dL Invalid Interpretation Code 1.3 - 2.4 mg/dL Rem[facility] Chem Comment on above: Result Comment: Crit ical Result Verified by Repeat Analysis Critical Result S_M.9 Called to and read back by: DOCTOR DIEGO at: 12/27/2023 20:26:51 by:[email or web address] Potassium [Moles/Vol] 4.7 mmol/L Normal 3.5 - 5.3 mmol /L Remisol Chem Sodium [Moles/Vol] 137 mmol/L Normal 135 - 145 mmol/L Remisol Chem Urea nitrogen [Mass/Vol] 19 mg/dL Normal 5 - 21 mg/dL Remisol Chem Urea nitrogen/Creatinine [Mass ratio] 13 mg/mg Normal 10 - 20 Remisol Chem Family Medicine Office/Clini c Noteon 12-27-2023 Family Medicine Office/Clinic Note Family Medicine Office/Clinic Note HPI Staff Alicja is a 68 year old male presenting for ER follow up ER followup: Hospital: [place] Visit date: 12/23/23 Symptoms the patient dizziness, fatigue, weakness, critical low magnesium, elevated glucose Current concerns: Moe says you need to refer him to someone who can figure this all out. He is better with his symptoms History of Present Illness Pt here for ER follow up. - Complaints of weakness and dizziness. - Labs done. - Found to have a critically low Mag - ER for replacement. - K was WNL. Physical Exam Vitals & Measurements T: 37.0 ?C(Temporal Artery) HR: 76(Peripheral) RR: 16 BP: 126/80 SpO2: 98% HT: 68 in HT: 172 cm WT: 109.8 kg WT: 241.56 lb BMI: 37.11 General: alert, no acute distress ENMT: oral [...] ordering appropriate follow-up work was 40 minutes. 1. Hypomagnesemia (E83.42: Hypomagnesemia) Will recheck today. Will refer the patient to nephrology. Continue on oral supplementation. If patient's potassium and magnesium are low again we will send to the infusion center for mag infusion. Patient is feeling much better today. Ordered: Basic Metabolic Panel Magnesium Level 2. Hypokalemia (E87.6: Hypokalemia) As above Ordered: Basic Metabolic Panel Magnesium Level 3. Gastroesophageal reflux disease without esophagitis (K21.9: Gastro-esophageal reflux disease without esophagitis) Will change the patient from a PPI to an Pepcid. Ordered: Basic Metabolic Panel Magnesium Level 4. Dizziness (R42: Dizziness and giddiness) Improved Ordered: Basic Metabolic Panel Magnesium Level 5. BMI 37.0-37.9, adult (Z68.37: Body mass index [BMI] 37.0-37.9, adult) BMI education added to the chart Ordered: Basic Metabolic Panel Body Mass Index (BMI) documented 3008F Current smokeless tobacco user 1035F Influenza immunization administered or previously received 4274F Magnesium Level Most recent diastolic blood pressure 80-89 mm Hg 3079F Patient screen for fall risk: no falls in last year or 1 fall with no injury in last year 1101F Systolic BP <130 mm Hg (Most Recent) 3074F 6. Class 1 obesity due to excess calories in adult (E66.09: Other obesity due to excess calories) Diet and exercise advised Ordered: Basic Metabolic Panel Body Mass Index (BMI) documented 3008F Current smokeless tobacco user 1035F Influenza immunization administered or previously received 4274F Magnesium Level Most recent diastolic blood pressure 80-89 mm Hg 3079F Patient screen for fall risk: no falls in last year or 1 fall with no injury in last year 1101F Systolic BP <130 mm Hg (Most Recent) 3074F 7. Smokeless tobacco use (Z72.0: Tobacco use) Please reduce your nicotine use Ordered: Basic Metabolic Panel Body Mass Index (BMI) documented 3008F Current smokeless tobacco user 1035F Influenza immunization administered or previously received 4274F Magnesium Level Most recent diastolic blood pressure 80-89 mm Hg 3079F Patient screen for fall risk: no falls in last year or 1 fall with no injury in last year 1101F Systolic BP <130 mm Hg (Most Recent) 3074F 8. Former smoker (Z87.891: Personal history of nicotine dependence) Please continue not to smoke Ordered: Basic Metabolic Panel Body Mass Index (BMI) documented 3008F Current smokeless tobacco user 1035F Influenza immunization administered or previously received 4274F Magnesium Level Most recent diastolic blood pressure 80-89 mm Hg 3079F Patient screen for fall risk: no falls in last year or 1 fall with no injury in last year 1101F Systolic BP <130 mm Hg (Most Recent) 3074F Follow-up No qualifying data available Problem List/Past Medical History Ongoing Alcohol abuse BPH with urinary obstruction Diabetic nephropathy associated with type 2 diabetes mellitus Diastolic dysfunction Dizziness Edema Elevated PSA Fatigue Feeling of incomplete bladder emptying Gastroesophageal reflux disease without esophagitis Hematuria Hypercholesterolemia Hypokalemia Hypomagnesemia Incomplete bladder emptying Kidney stone Major depressive disorder, recurrent, moderate Murmur PIN (prostatic intraepithelial neoplasia) Primary hypertension Prostate cancer screening Recurrent UTI Right flank pain SOB (shortness of breath) on exertion Tachycardia Type 2 diabetes mellitus with hypercholesterolemia Urinary retention Historical No qualifying data Procedure/Surgical History Ar (more content not included)... Normal [facility] Comment on above: Result Comment: Elec tronically Signed By: Ruiz REYNOLDS, oJse Thompson\.br\Date and Time Signed: 12/27/23 08:08 EDT Magnesiumon 12-27-2023 Magnesium [Mass/Vol] 0.9 mg/dL Abnormal 1.3-2.4 [facility] Comment on above: Result Comment: Crit ical Result Verified by Repeat Analysis Critical Result S_M.9 Called to and read back by: DOCTOR DIEGO at: 12/27/2023 20:26:51 by:[email or web address] Performed By: #### 2 [id number] #### [facility] [address] [place] [address] eGFRon 12-27-2023 eGFR 50 mL/min/1.73 m2 Low >=59 [facility] Comment on above: Order Comment: Order added by Discern Expert. Performed By: #### 1 [id number] #### [facility] [address] [place] [address] C Urineon 12-24-2023 Bacteria identified Cx Nom (U) Microbiology PROCEDURE: Urine Culture [R1] SOURCE: U CleanCatch BODY SITE: COLLECTED DATE/TIME: 12/22/2023 08:35 EDT RECEIVED DATE/TIME: 12/22/2023 19:56 EDT START DATE/TIME: 12/22/2023 19:56 EDT FREE TEXT SOURCE: SHIRA WHATLEY, MARINO KEARNS CNP, MARINO Butler FINAL REPORTS Final Report [] Verified Date/Time: 12/24/2023 07:57 EDT 2,000 cfu/ml Mixed skin contaminants Performing Locations R1: This test was performed at: [facility], [address] [place] [address], [address] , , Normal [facility] Comment on above: Performed By: #### 2 [id number] #### [facility] [address] [place] [address] CMPon 12-23-2023 Albumin [Mass/Vol] 4.4 g/dL Normal 3.3-5.0 [facility] Comment on above: Performed By: #### 2 480478 #### [facility] [address] [place] [address] Albumin/Globulin (S) [Mass conc ratio] 1.5 Normal 1.1-2.2 [facility] Comment on above: Performed By: #### 2 [id number] #### [facility] [address] [place] [address] ALP [Catalytic activity/Vol] 62 Int._Unit/L Normal 21-98 [facility] Comment on above: Performed By: #### 2 975129 #### [facility] [address] [place] [address] ALT No additional P-5'-P [Catalytic activity/Vol] 22 Int._Unit/L Normal 6-46 [facility] Comment on above: Performed By: #### 2 403913 #### [facility] [address] [place] [address] AST [Catalytic activity/Vol] 21 Int._Unit/L Normal 5-43 [facility] Comment on above: Performed By: #### 2 999657 #### [facility] [address] [place] [address] Bilirubin [Mass/Vol] 0.9 mg/dL Normal 0.0-1.1 [facility] Comment on above: Performed By: #### 2 831269 #### [facility] [address] [place] [address] Globulin (S) [Mass/Vol] 2.9 g/dL Normal 1.4-4.0 [facility] Comment on above: Performed By: #### 2 244200 #### [facility] [address] [place] [address] Protein [Mass/Vol] 7.3 g/dL Normal 6.0-7.8 [facility] Comment on above: Performed By: #### 2 147926 #### [facility] [address] [place] [address] Magnesiumon 12-23-2023 Magnesium [Mass/Vol] mg/dL Abnormal 1.3-2.4 [facility] Comment on above: Result Comment: Crit ical Result S_MG:<0.5 Called to and read back by: ANGELLA GUERRERO at: 12/23/2023 08:18:07 by:[email or web address] Critical Result Verified by Repeat Analysis Performed By: #### 2 [id number] #### [facility] [address] [place] [address] CBC w/ Auto Diffon 4 Basophils/100 WBC (Bld) 0.7 % Normal 0.0-2.0 [facility] Comment on above: Performed By: #### 2 114543 #### [facility] [address] [place] [address] Basophils/Leukocytes Auto (Bld) [Pure # fraction] 0.1 E9/L Normal 0.0-0.2 [facility] Comment on above: Performed By: #### 2 738686 #### [facility] [address] [place] [address] Eosinophils (Bld) [#/Vol] 0.1 E9/L Normal 0.0-0.5 [facility] Comment on above: Performed By: #### 2 461014 #### [facility] [address] [place] [address] Eosinophils/100 WBC (Bld) 1.5 % Normal 0.0-8.0 [facility] Comment on above: Performed By: #### 2 574294 #### [facility] [address] [place] [address] Erythrocyte distribution width (RBC) [Ratio] 13.3 % Normal 10.9-14.2 [facility] Comment on above: Performed By: #### 2 846227 #### [facility] [address] [place] [address] Hematocrit (Bld) [Volume fraction] 38.5 % Normal 37.7-49.0 [facility] Comment on above: Performed By: #### 2 322391 #### [facility] [address] [place] [address] Hemoglobin (Bld) [Mass/Vol] 13.2 g/dL Low 13.5-17.5 [facility] Comment on above: Performed By: #### 2 866667 #### [facility] [address] [place] [address] Lymphocytes (Bld) [#/Vol] 1.4 E9/L Normal 1.0-4.0 [facility] Comment on above: Performed By: #### 2 447953 #### [facility] [address] [place] [address] Lymphocytes/100 WBC (Bld) 18.7 % Normal 14.0-50.0 [facility] Comment on above: Performed By: #### 2 722767 #### [facility] [address] [place] [address] MCH (RBC) [Entitic mass] 33.5 pg Normal 27.0-34.0 [facility] Comment on above: Performed By: #### 2 168060 #### [facility] [address] [place] [address] MCHC (RBC) [Mass/Vol] 34.3 g/dL Normal 31.4-36.0 [facility] Comment on above: Performed By: #### 2 319459 #### [facility] [address] [place] [address] MCV (RBC) [Entitic vol] 97.5 fL Normal 80.0-100.0 [facility] Comment on above: Performed By: #### 2 542021 #### [facility] [address] [place] [address] Monocytes (Bld) [#/Vol] 0.6 E9/L Normal 0.2-1.0 [facility] Comment on above: Performed By: #### 2 012119 #### [facility] [address] [place] [address] Neutrophils (Bld) [#/Vol] 5.3 E9/L Normal 2.0-7.5 [facility] Comment on above: Performed By: #### 2 742320 #### [facility] [address] [place] [address] Neutrophils/100 WBC (Bld) 70.6 % Normal 36.0-75.0 [facility] Comment on above: Performed By: #### 2 892833 #### [facility] [address] [place] [address] Platelet 246.0 E9/L Normal 150.0-500.0 [facility] Comment on above: Performed By: #### 2 235059 #### [facility] [address] [place] [address] Platelet mean volume (Bld) [Entitic vol] 7.6 fL Normal 6.4-10.8 [facility] Comment on above: Performed By: #### 2 955000 #### [facility] [address] [place] [address] RBC (Bld) [#/Vol] 4.0 E12/L Low 4.3-5.9 [facility] Comment on above: Performed By: #### 2 442081 #### [facility] [address] [place] [address] WBC corrected for nucl RBC Auto (Bld) [#/Vol] 7.4 E9/L Normal 4.0-11.0 [facility] Comment on above: Performed By: #### 2 846226 #### [facility] [address] [place] [address] CHEMISTRYOrdered By: Jaime van on 12-22-2023 Anion gap [Moles/Vol] 19 mmol/L High 6 - 16 mEq/L R emisol Chem Calcium [Mass/Vol] 8.2 mg/dL Low 8.9 - 11.1 mg/dL Rem[facility] Chem Chloride [Moles/Vol] 100 mmol/L Low 101 - 111 mmol/ L [facility] Chem CO2 [Moles/Vol] 23 mmol/L Normal 21 - 31 mmol/L Remis ol Chem Creatinine [Mass/Vol] 1.6 mg/dL High 0.5 - 1.3 mg/d L Remisol Chem eGFR 46 mL/min/1.73 m2 Low >=59mL/min /1.73 m2 Remisol Chem Glucose [Mass/Vol] 255 mg/dL High 55 - 199 mg/dL Re misol Chem Potassium [Moles/Vol] 3.8 mmol/L Normal 3.5 - 5.3 mmol /L Remisol Chem Sodium [Moles/Vol] 138 mmol/L Normal 135 - 145 mmol/L [facility] Chem Urea nitrogen [Mass/Vol] 17 mg/dL Normal 5 - 21 mg/dL [facility] Chem Urea nitrogen/Creatinine [Mass ratio] 11 mg/mg Normal 10 - 20 [facility] CMPon 12-22-2023 Anion gap [Moles/Vol] 19 mmol/L High 6-16 [facility] Comment on above: Performed By: #### 2 [id number] #### [facility] [address] [place] [address] Calcium [Mass/Vol] 8.2 mg/dL Low 8.9-11.1 [facility] Comment on above: Performed By: #### 2 492259 #### [facility] [address] [place] [address] Chloride [Moles/Vol] 100 mmol/L Low 101-111 [facility] Comment on above: Performed By: #### 2 112961 #### [facility] [address] [place] [address] CO2 [Moles/Vol] 23 mmol/L Normal 21-31 [facility] Comment on above: Performed By: #### 2 537116 #### [facility] [address] [place] [address] Creatinine [Mass/Vol] 1.6 mg/dL High 0.5-1.3 [facility] Comment on above: Performed By: #### 2 645373 #### [facility] [address] [place] [address] Glucose [Mass/Vol] 255 mg/dL High 55-199 [facility] Comment on above: Performed By: #### 2 283503 #### [facility] [address] [place] [address] Potassium [Moles/Vol] 3.8 mmol/L Normal 3.5-5.3 [facility] Comment on above: Performed By: #### 2 225534 #### [facility] [address] [place] [address] Sodium [Moles/Vol] 138 mmol/L Normal 135-145 [facility] Comment on above: Performed By: #### 2 821925 #### [facility] [address] [place] [address] Urea nitrogen [Mass/Vol] 17 mg/dL Normal 5-21 [facility] Comment on above: Performed By: #### 2 702901 #### [facility] [address] [place] [address] Urea nitrogen/Creatinine [Mass ratio] 11 No Units Normal 10-20 [facility] Comment on above: Performed By: #### 2 200138 #### [facility] [address] [place] [address] Family Medicine Office/Clini c Noteon 12-22-2023 Family Medicine Office/Clinic Note Family Medicine Office/Clinic Note [facility] Staff Alicja is a 68 year old male presenting for sick visit Acute: nausea, vomiting, dizziness, shaky Onset: Started 12/17 Taking Zofran for the nausea. This does work, He states he gets dizzy when he stands up from sitting. Needs refills on Magnesium, and Ciprofloxacin Last time he took was yesterday He said his urine is darker than usual he self cath 2-3x daily, no pain or burning started the same day he started feeling bad History of Present Illness 68 [address] old patient of Dr. Grace, presents for evaluation of dizziness, nausea, & vomiting that started four days ago. He states he had this in the past and it was due to a UTI. He reports he does self-catheterization. He states he has been able to eat and drink fluids. He reports he has been taking Zofran and this has helped. He denies fever and he is afebrile today in the office. He states he ate breakfast this AM without problems. He is followed by urology and has an appointment on 01/10/2024. Review of Systems PHQ Score Initial Depression Screen Score: 0 SCORE Constitutional: no fever, no chills, no sweats, no weakness Skin: no Jaundice, no rash, no lesions, nopetechiae Respiratory: no shortness of breath, no cough, no orthopnea, no wheezing Cardiovascular: no chest pain, no palpitations, no edema Gastrointestinal: mild nausea, mild vomiting, no diarrhea, no GI bleeding Genitourinary: no dysuria, no hematuria, no discharge, no pain Additional ROS info: Except as noted in the above Review of Systems and in the History of Present Illness all other systems have been reviewed and are negative or noncontributory. Physical Exam Vitals & Measurements T: 36.8 ?C(Temporal Artery) HR: 88(Peripheral) RR: 20 BP: 122/86 SpO2: 96% HT: 68 in HT: 172 cm WT: 107.8 kg WT: 237.16 lb BMI: 36.44 General: alert, no acute distress Skin: warm, dry Head: no trauma, normocephalic Neck: Trachea midline, no adenopathy, no tenderness Eye: normal conjunctiva, sclera clear Cardiovascular: regular rate and rhythm, normal peripheral perfusion Respiratory: Lungs CTA, respirations non labored Gastrointestinal: soft, non distended, no CV tenderness Back: No tenderness, Normal ROM, Normal alignment. Extremities: no deformity, no trauma Neurological: oriented x 4, LOC appropriate for age speech normal Psychiatric: cooperative, affect appropriate for age, normal judgement, normal psychiatric thoughts. Assessment/Plan 1. UTI symptoms (R39.9: Unspecified symptoms and signs involving the genitourinary system) POCT UA positive for leukocytes Start Ciprofloxacin 500 mg one tablet po BID x 7 days Awaiting urine culture Will call if not sensitive to ATB f/u if no improvement in 7 days Ordered: ciprofloxacin, 500 mg = 1 tab(s), Oral, q12hr, X 7 day(s), # 14 tab(s), Refills(s) 0, Pharmacy: [facility], 172, cm, 12/22/23 7:41:00 EDT, Height/Length Dosing, 107.8, kg, 12/22/23 7:41:00 EDT, Weight Dosing Urine Culture 2. Vomiting (R11.10: Vomiting, unspecified) Continue Zofran as needed Diet as tolerated Encourage fluids Ordered: ciprofloxacin, 500 mg = 1 tab(s), Oral, q12hr, X 7 day(s), # 14 tab(s), Refills(s) 0, Pharmacy: [facility], 172, cm, 12/22/23 7:41:00 EDT, Height/Length Dosing, 107.8, kg, 12/22/23 7:41:00 EDT, Weight Dosing CBC w/ Auto Diff Comprehensive Metabolic Panel Lab Specimen Collect 11583 Magnesium Level Urnls Dip Stick Auto w/o Microscopy POC 66905 3. Former smoker (Z87.891: Personal history of nicotine dependence) Encouraged to continue as a non-smoker Ordered: Lab Specimen Collect [id number] Urnls Dip Stick Auto w/o Microscopy POC 94604 4. BMI 36.0-36.9,adult (Z68.36: Body mass index [BMI] 36.0-36.9, adult) The standard range for ages 18 and older is >=18.5 and < 25 kg/m2. Your BMI today was above this range, this falls in the overweight to obese category and there are medical benefits to weight loss. We can offer counselling, referral, and/or medical support in addressing this problem. Your BMI and weight management will be followed at subsequent visits. Ordered: Lab Specimen Collect [id number] Urnls Dip Stick Auto w/o Microscopy POC 97331 Orders: magnesium oxide, 400 mg = 1 tab(s), Oral, Daily, # 60 tab(s), Refills(s) 0, Pharmacy: [facility], 172, cm, 12/22/23 7:41:00 EDT, Height/Length Dosing, 107.8, kg, 12/22/23 7:41:00 EDT, Weight Dosing Follow-up No qualifying data available Problem List/Past Medical History Ongoing Alcohol abuse BPH with urinary obstruction Diabetic nephropathy associated with type 2 diabetes mellitus Diastolic dysfunction Dizziness Edema Elevated PSA Fatigue Feeling of incomplete bladder emptying Gastroesophageal reflux disease without esophagitis Hematuria Hypercholesterolemia Hypertension Hypokalemia Incomplete bladder emptying Kidney stone Major depressive disorder, recurrent, moderate Murmur (more content not included)... Normal [facility] Comment on above: Result Comment: Elec tronically Signed By: MARINO KEARNS CNP\.oliver\Date and Time Signed: 12/22/23 10:28 EDT HEMATOLOGYOrdered By: SYSTEM SYSTEM on 12-22-2023 Basophils/100 WBC (Bld) 0.7 % Normal 0.0 - 2.0 % Remisol Heme Basophils/Leukocytes Auto (Bld) [Pure # fraction] 0.1 E9/L Normal 0.0 - 0.2 E9/L Remisol Heme Eosinophils (Bld) [#/Vol] 0.1 E9/L Normal 0.0 - 0.5 E9/L [facility] Eosinophils/100 WBC (Bld) 1.5 % Normal 0.0 - 8.0 % [facility] Erythrocyte distribution width (RBC) [Ratio] 13.3 % Normal 10.9 - 14.2 % [facility] Hematocrit (Bld) [Volume fraction] 38.5 % Normal 37.7 - 49.0 % [facility] Hemoglobin (Bld) [Mass/Vol] 13.2 g/dL Low 13.5 - 17.5 gm/dL [facility] Lymphocytes (Bld) [#/Vol] 1.4 E9/L Normal 1.0 - 4.0 E9/L [facility] Lymphocytes/100 WBC (Bld) 18.7 % Normal 14.0 - 50.0 % [facility] MCH (RBC) [Entitic mass] 33.5 pg Normal 27.0 - 34.0 pg [facility] MCHC (RBC) [Mass/Vol] 34.3 g/dL Normal 31.4 - 36.0 gm /dL [facility] MCV (RBC) [Entitic vol] 97.5 fL Normal 80.0 - 100.0 fL [facility] Monocytes (Bld) [#/Vol] 0.6 E9/L Normal 0.2 - 1.0 E9/L [facility] Monocytes/100 WBC (Bld) 8.5 % Normal 4.0 - 14.0 % [facility] Neutrophils (Bld) [#/Vol] 5.3 E9/L Normal 2.0 - 7.5 E9/L [facility] Neutrophils/100 WBC (Bld) 70.6 % Normal 36.0 - 75.0 % [facility] Platelet 246.0 E9/L Normal 150.0 - 500.0 E9/L [facility] Platelet mean volume (Bld) [Entitic vol] 7.6 fL Normal 6.4 - 10.8 fL [facility] RBC (Bld) [#/Vol] 4.0 E12/L Low 4.3 - 5.9 E12/L Re misol Heme WBC corrected for nucl RBC Auto (Bld) [#/Vol] 7.4 E9/L Normal 4.0 - 11.0 E9/L [facility] eGFRon 12-22-2023 eGFR 46 mL/min/1.73 m2 Low >=59 [facility] Comment on above: Order Comment: Order added by Discern Expert. Performed By: #### 1 [id number] #### [facility] [address] [place] [address] Coding Summary.on 11-29-2023 Coding Summary. PIEISghq80XYk3wOe+PG h lYWQ+SQ6OIZQeC44loVKs sH8mU5VJPIyMQmduLUDQH JiMVhGngzRaFI8gmGYySR Ju IC8+IN5gNOLaQflogVEoh 5H4gJN5J58ybl7oKBucbB T6TBPwJhBxnisfh8zvzGj 6IDcuNmluOyBt WUVncP24TUW8yX46Ck76o EVagBKes2rqrSl3CuNwQW ZwDEH4dUivDDxcl8ZlIKD gT15jsZNwy8T0 VHLoqWousUIyAmGitZQ5g R3xKCihfxjkr2xcunsuOy c2ew98wCGwn9U2bFX1T4N ocqD3ALTmiZJx RjovaWDByN7uejayg2roi tvnJbOcRFPjPKf6OBq5GO KunNbqSnBhTF20KFW8WED rmjYbS2VvIOYi lFmgVhZ0i6B0Hc1ID8UQU ihxN1XRQCXJALmktNM+PC 00qk07K8HcHtrfJjg3MFV xZYT6kSJ2lY8j TXGkFQuxt0Y1fDL4L7Yvm lPvst8gp1fcKZUsTJafE2 1uxVAni3R1BDHqlJN7OIM ywCkaOoYqjM20 Oyc+ULZjuNbao4ShSoaxw 9voi6rrdYt7XgcnXDRnvm CrpEolUJQ1b8GvSp1mCCO maBA4pZB6aJ9a LnTrCeY8ZYtaD934EcPyi VAyAszrK21tO5MvqXO+PH DnGey9INUvmWygAK7wS3B hZGRpbmctbGVm oVjvVC7kGENloqbnCLGix P9aOPYbB4n2ShXoYoS7IU voX3WfVZMpxqjdWa81uM0 jMiUuVzA0AUzt I1FhslG5SWYedLQgZSrfP XO9P78dh7W0XVToGUBnRY F8eYW8bQ7mzQtslrzivVR mdDsgdmVydGlj EFfgCFntY387ZWOanMsoD kNvZGluZyBEYXRlOiAgMD YvMjUvMjAyNDwvdGQ+PHR iFPH7tXxtLMCz eBOsENhpYa2fzPxnnSuaD W6sNRCdjgnbQOMwtL4sYV FmyVDyxMtxGT0vCTEvcnb lo378JdUgKYV1 GNGehTMnF1UbfG2iJgVgU WEfDXOcJ0VlkYSnWPmtT3 24KUfcIpS4RNBqdfQfP8S sLWFsaWduOiB0 s0V0Ub2Bc0KnliahC7Wvv HYhQbQsVlaqEHz8Q2BsJq wvdHI+RX09HDGnXB95XOe 0CFX1iOkjRNfv EHQvA8MbeO6eTgPqGFVfS GRkOyc+PHRhYmxlIHdpZH RoPScxMDAlJyBzdHlsZT0 bYf7gLWAzQHAy tUbwqDOoDvBgm3mlRXWlG DpfZG6ggYlrL3GesPT1OQ Qdj2j0Jz81K80sB5EdjDG +GKHvbJA6uSC6 gH7wQjSbDpC5RGptG971A rInlSQfQjwsw5fwg8nuxZ s5FpM8SGVypsNjcWdvFGD 9o8BlIm99W69p IHdpZHRoPSIxNSUiIHZhb Oakdq5ciJ7xVo3+PGNvbC G9wKD0xC1nBwIvPgP9PGd lX728YyIvaRJc Ocima2dqp2drlWw0SpCqE WUbldGxvUeqLVN4f2YvAa 02I5LjqHvjd5DxNjy5ks4 0mZOuv3Q1lNX3 V1IoJJBnofhrbBOffKziT M4hKRQxiylhUEGyzE9pCO PlT3f3ZbGdMjX5CAvwB1U uuwQ1KNOltJHa UTLtsYNIeR7cjhmhv4ybp luqFaXwNEHaJZv6AWa5RT TasVfdAcYqSUJ5LxI7GSA 5bMQflF2flXwl dlocjH6cDoe+FLR4kPHsm ZUVTX5vDtzjsXA+PHRkIH U9rTnrVDxiIAOloQ8pGCF nH1m2NuXvVpX1 EUbdN0DlkdW4UCKsbAIoT EIhyWLQwU3pgtqjk9eiur ifAdDlOGAdSMt1BCk8OII saWduOiBsZWZ0 CwT1PYK3sOChoB5vxMidb iortH0kGeu+QmlydGggRG E1ZOi7X9DqQmi6WMLboIx kVV2evKHlCFaa Zp6rvRbkwDzkJE7fHKDcp xler088KvSij0zoRCBliW IbOZvoITZ6Z23kd0T2CIG mUHAkDRW6rHY1 kD9cdKitmztnjZRdpQxru aPtoZwtLTqjXYumS189GL ByeFpyEzDvBXl8G9YuHyn 0PPUhuSszSN4z jPUkFKviVy3pqJxuiLxnE L0rBNYonmxug418CbHuy5 syMXSwgXAbXWrtENK8G56 eh5X3GSXtAXRg AFQ7pKV3nW2enWvdnvwtf GVmdDsgdmVydGljYWwtYW tlB578VHChyKwaQsSvdVj 3S8IgDoi3UKBa gQngOX0xmKBrYZdqGt0jo YcwxOmdPD6vLBBpjvlss6 19VaLhm8mwBUDbuGXfCKm hPVV0P54rf0S9 FSTaTHXqWRE7eFU3aS3av GlnbjogbGVmdDsgdmVydG etDHffFGdgZ279LGAmgEj nPlBhdGllbnQg EMclBVn3A4SvVbeoqAQ+P E68SOZtED90gPNfyCPus5 nzrUd7DjOuBFSfJZA2pTe zUEsww7RoETQu M31ppCCfr3I4MAPcaYawa ABsRuGleEZ2kL5bLZklau kqu8ooqykmOfwxj9bjwq9 1qE87I28cSVrb ZHRoPSIzMCUiIHZhbGlnb u4roZ7fYw7+IPYrbNH0jS S4aF0vJIFdZuD5EBjqN56 9InRvcCIvPjxj s2fcg2mheRy3MsW2ASIrb mSpgFqkBXH4y3IwSd19J0 9sIHdpZHRoPSIyMCUiIHZ hwKmefh6teR3h Ii8+LSXspRN6oGX0sV6nO iQhCeU0LNreZ824AaZzcC XdRsckE29gB1ZstHW+PHR jRsf6PHCmuEfo ZJ2jvWQnVZepFp8tINX2Z kAoFnUbRPmgO1AmDTWelm klfoyzuVU2FSFdTBYqeO6 7Nc6cmEbyXTDi vIORiA3iiehiz3gblzdkH zBzAQGbCPs8NDj5MVTfmY kuGfZoDQT7JvH0PZS3sBE baB9mfZzdemyi nL4jE4HuMRRdzdpcTu70q B1zOrUuHcC8HGxlSxn+TE XPQvDYT8FxSSZCBzfNARN 4M3IjIsh0ZFDj lTjqJI1xbGJyELsbUj9kj RwjnQuzUJ6lLQBcoeppOB ArnY8xHAIubSEgsStwOC1 dXMVmmrboz998 XpGpVDZ9RBDlhUJwO0Vyc O9kBuTvRPLgNWXrP5QikD BqXUhgE563XWntMbH3CBR bqoDoX1ZtISDu nIthOmF4h7S2Tp9wWK6oS I7oECB8ZP52YJ42cGKwc2 R4qYX4V5GtDQEcihzryjn vgYE5JUBlHJKu rR39gFUjVDzaTy9nz4U2v 649DEIyMNGgrR53Dl7cpC mrIYRvmNLYmY0ikixvh1q vcjogIzAwMDAw DCx2ATn5VIQsmTglSnIhU GL7FoA0AFG4cXQblJ3xjH ehymlbfF9pDwz+NjkgWWV aspK2Z9TqNul4 QYImhDolEJ1naCOoDZzvS j7ipJuyeGdbXB9vJXCjsw rrGOOjaX9iYGJaiTZwhEl gBB8mDPLodxdx l461FwYrPJB7GGXvfRVsF 3OcxY6gPzYgXIEeSZApN6 QvrYHvPSrmT494JRinYgV 7JNPtruJaV6Uz GGIrbUepRnN9s1P0Dk4ZJ CtrYV52VA93tJGyn3N1bQ F3O4EjBPDdejelsvzrrMB 1PVZrRBDvfJ17 zQSeIEqzTa4yk0G7w505U CIuZHVvtW33Hg2clWsgJG AoeEVPhY9rrlsur1uyazn gIzAwMDAwMDt0 WPd5HZHgnVpvLwQrJDP7T kM5VAO3uJBdgQ4kgChcoo iwwR3pIrd+D9V0tXY4rFR udDwvdGQ+PC90 ja89I9QkVvstEjl1MDNxP PP7nVN0dP9aDKRrVFkvi2 L1hZJ8M0QzmxKexj4qk2q fRWElALirV19e zDOdp1P1EHDjmFT8EAZzu AwoZzNonG16Pkb+PGNvbG sho9KrKjsrm0ggp9mnyQe 9IjMwJSIgdmFs pEnfFHD6b2AlZu22Z69qT HdpZHRoPSIzMCUiIHZhbG bjjb8elV3qUt6+PGNvbCB 0zAR3pY0pEzTp JtT8EOdjN398UaUtkDMgZ sejy6hzy0xegFj0FhQgNB MxddBtqNrdTVW9y2PlNh5 6J6KptIhcs9Av Ccl5gq13nTKpj3W4eMX1E 3BhZGRpbmctbGVmdDogMC 7tBREuyymdAQDmhY2xIEZ kI9f0QaIaToO4 RKjqR9DazgI0CTFjeWOxA AGvrRJGvC0npitpm2kmto hrHwBnRJWwHLc6IEa4GYW saWduOiBsZWZ0 JtE6FJZ8jHKdkQ7mtXyrj axudC8eTze+IBr8g1tkwL JpGJ5psCP6QY85ZV82vGO vb1P1aPX0P9De MLZdqusoyyqbaMB0UUKkY YBwfO97Pw9foUvgXe6bMP TpDYV3JFUlyLIkV7GpdN2 yOiAjMDAwMDAw B9NbhPLoXIkfO268WIatU aS3TFTwcgVoD8FpCBGerL iyBbU6p2L2Ej3HKK14WZ6 0XM47kZXkm0D9 iGE9R6OnCGJutzzanjneb RK9LZInOQBhiR79Mw8unZ tkEs9kQJSoSUJ5BTDqkYM tT6EfqR7qMiUt WSEbMJRhL6VsuKBcHVlvK 691GFpeIvN2LCChmtCbN3 RbZVZfwAmpMnE7o9L3Fg2 GBl70MG33RH15 hLHxx1S3yBY9Z3GxGJMns yzmupizdDR7YGCnXGXdqN 99Ah3rbUhcXd4oQPRrILX 5DGLzfGJiT8Mk sS0xTcCjODIqYXNsT8Bwg YCzDJlwT132WIqhLdV0ML MklqZeG6JcZPFkoXwzVbP 8j1Y3Wb2IKJjd ubu2X3GcXrlvgLD+PC90Y BHlLD87gSHyzELwg9nnjL l0WqLxBJCpMLF1cVzqKNa li2DlKONpC83c gKNny5J8FERhw (more content not included)... Normal [facility] IntraOperative Documentson 0 11-29-2023 IntraOperative Documents [id number]#1 .00TIFF [facility] Consent for Procedure/Surger yon 11-28-2023 Consent for Procedure/Surgery [id number]# 1.00TIFF Normal [facility] Consent for Treatmenton 11-05 Consent for Treatment [id number]#1 .00TIFF Normal [facility] Inpatient Patient Summaryon 11-28-2023 Inpatient Patient Summary [place] [address] Clinical Summary Person Information Name: ALICJA REYES Age: 68 Years : 1955 Sex: Male PCP: Jose Grace MD Marital Status: Race: White Ethnicity: Non- or Language: Turkmen Visit Id: Visit Reason: FEELING OF INCOMPLETE BLADDER EMPTYING AND BPH WITH LUTS Speciality: Acuity: Enc Type: Outpatient Med Service: Surgery Arrival: 11/28/2023 13:21:43 Discharge: Dispo Type: Address: [address] [place] [address] [id number] Provider Notes: Diagnosis: Problems Active Hypertension Feeling of incomplete bladder emptying PIN (prostatic intraepithelial neoplasia) Diastolic dysfunction Alcohol abuse Murmur Tachycardia Incomplete bladder emptying Kidney stone BPH with urinary obstruction Elevated PSA Recurrent UTI Major depressive disorder, recurrent, moderate SOB (shortness of breath) on exertion Dizziness Urinary retention Hypokalemia Fatigue Edema Type 2 diabetes mellitus with hypercholesterolemia Right flank pain Hematuria Prostate cancer screening Diabetic nephropathy associated with type 2 diabetes mellitus Primary hypertension Gastroesophageal reflux disease without esophagitis Hypercholesterolemia Smoking Status: Functional Status: Sensory Deficits: History of Falls: Mobility Assistance Prior to Admission: ADLs: Current Level of Assistance for Self-Care/Mobility: Cognitive Status: Allergies CeleBREX (Unknown) (Anxiety) Laboratory or Other Results This Visit (last charted value for your 11/28/2023 visit) No Laboratory or Other Results This Visit Measurements: Height: Weight: Blood Pressure: Not Valued / Not Valued BMI: Procedures No Procedures Documented Immunizations No Immunizations Documented This Visit Final Med List: amlodipine (amLODIPine 5 mg Tab) TAKE 1 TABLET DAILY. Refills: 1. aspirin (aspirin 81 mg Oral EC Tab) 1 Tablets By Mouth every day. Refills: 0. atorvastatin (atorvastatin 40 mg Tab) 1 Tablets By Mouth every day. Refills: 1. cephalexin (Keflex 500 mg Cap) 1 Capsules By Mouth As Directed. Pt to take 1 tab the day before procedure and the 2nd tab the day of procedure once completed.. Refills: 0. ciprofloxacin (Cipro 500 mg Tab) Take 1 tab day prior to procedure and 1 tab day of procdure - afterwards. Refills: 0. glipiZIDE (glipiZIDE 5 mg Tab) 2 Tablets By Mouth 2 times a day. Refills: 1. hydrochlorothiazide-l isinopril (hydrochlorothiazide- lisinopril 12.5 mg-20 mg Tab) 1 Tablets By Mouth every day. Refills: 0. magnesium oxide (magnesium oxide 400 mg Tab) 1 Tablets By Mouth every day. Refills: 0. metformin (Glucophage XR 500 mg Tab-ER) 2 Tablets By Mouth 2 times a day. Refills: 1. metoprolol (metoprolol 25 mg ER Tab) 1 Tablets By Mouth every day. Refills: 6. Misc Prescription (Misc DME Prescription) Alcohol prep [...] Refills: 3. omeprazole (omeprazole 40 mg Cap-DR) TAKE 1 CAPSULE DAILY. Refills: 1. ondansetron (Zofran ODT 4 mg Tab-Dis) 1 Tablets By Mouth every 8 hours as needed Nausea/Vomiting. Refills: 0. potassium chloride (potassium chloride 10 mEq Cap-ER) TAKE 1 CAPSULE BY MOUTH EVERY DAY. Refills: 3. tamsulosin (tamsulosin 0.4 mg Cap) 1 Capsules By Mouth once a day (in the evening). Care Team Members: Attending Physician: Bryant TAO MD Consulting Physician: Referring Physician: Bryant TAO MD Follow up: With: Address: When: Bryant TAO [address] [place] [address], [address], [place] [address] Business (1) Comments: As we discussed, I would like to do the voiding diary to see what is exactly going on with the amount voided and the amount catheterized voiding diary to see what is exactly going on with the amount voided and the amount catheterized. You can do this several times in the next couple weeks or so and deliver this to the office so I can look at it and come up with a plan. Please finish your antibiotics. Please continue to intermittently catheterize to be sure you are at least emptying the bladder intermittently. Type Location Start Finish State Cardiology Follow Up (FT) [facility] [place] 12/16/2023 9:00 AM 12/16/2023 9:15 AM Confirmed URO [place] [facility] [place] [place] 01/10/2024 8:15 AM 01/10/2024 8:30 AM Confirmed [facility]00 AM 07/09/2024 (more content not included)... Normal [facility] IntraOperative Documentson 0 11-28-2023 IntraOperative Documents [id number]# 1.00TIFF Normal [facility] Main OR Intraoperative Recor don 11-28-2023 Main OR Intraoperative Record IntraOp Document Type FTURO Summary Primary Physician: Bryant TAO MD Finalized Date/Time: 11/28/23 15:54:06 Pt. Name: ALICJA REYES Bharathi Doty/Sex: 1955 Male Med Rec #: [id number] Physician: Bryant TAO MD Financial #: [id number] Pt. Type: O Room/Bed: / Admit/Disch: 11/28/23 13:21:43 - Institution: Case Times FTURO Entry 1 Patient Times In Room 11/28/23 15:39:00 Out Room 11/28/23 15:55:00 Procedure Times Start 11/28/23 15:45:00 Stop 11/28/23 15:49:00 Anesthesia Times Last Modified By: Yolande DAVID, Monica Vogel 11/28/23 15:49:28 Case Attendance FTURO Entry 1 Entry 2 Entry 3 Case Attendee Bryant TAO MD, RN, Monica Singh CST, Angie Vogel Role Performed Surgeon - Primary General Office Dispatcher - Primary Scrub - Primary Time In 11/28/23 15:39:00 11/28/23 15:39:00 11/28/23 15:39:00 Time Out 11/28/23 15:55:00 11/28/23 15:55:00 11/28/23 15:55:00 Procedure CYSTOSCOPY LOCAL(.) CYSTOSCOPY LOCAL(.) CYSTOSCOPY LOCAL(.) Comments Last Modified By: Yolande DAVID, Monica Lanier RN, Monica Lanier RN, Monica Vogel 11/28/23 Demi Vogel 11/28/23 Demi Vogel 11/28/23 15:49:34 15:49:34 15:49:34 Surgical Procedures FTURO Entry 1 Procedure Description Procedure CYSTOSCOPY LOCAL Modifiers . Surgeon Description CYSTOSCOPY LOCAL Primary Procedure Yes Primary Surgeon Bryant TAO MD Start 11/28/23 15:45:00 Stop 11/28/23 15:49:00 Anesthesia Type Local Surgical Service Urology Wound Class 2 - Clean-Contaminated Last Modified By: Yolande DAVID, Monica Vogel 11/28/23 15:49:33 General Case Data FTURO Pre-Care Text: Classifies surgical wound, implements aseptic technique, initiates traffic control Entry 1 Case Information OR URO 1 FT Case Level None Wound Class 2 - Clean-Contaminated Specialty Urology Preop Diagnosis FEELING OF INCOMPLETE Postop Same As Preop Yes BLADDER EMPTYING AND BPH WITH LUTS Postop Diagnosis FEELING OF INCOMPLETE Outcomes Met? Yes BLADDER EMPTYING AND BPH WITH LUTS Last Modified By: Monica Lanier RN 11/28/23 15:37:58 Post-Care Text: The patient is free from signs and symptoms of infection EU IntraOp - FTURO Pre-Care Text: Implements protective measures prior to operative or invasive procedure, confirms identity before the operative or invasive procedure, verifies operative procedure, surgical site, and laterality Entry 1 EU Perioperative Protocols Procedure(s) CYSTOSCOPY LOCAL(.) Patient Identity Birthday, ID Band Verified (select at Check, Patient least 2): Participation Consents / H and P HandP, Surgery/Procedure Operative Site N/A Verified Consent Marking Verified Surgical Site Yes Laterality Verified n/a Verified Procedure Verified Yes Correct Patient Yes Position Verified Availability Equipment, Medication Time Out EMMY REYNOLDS, Bryant P, Verified (If Participants Monica Lanier RN Applicable) Francisco York CST, Angie Butler Time Out Complete 11/28/23 15:44:00 Allergies Reviewed? Yes Allergies Reviewed Self/Patient With Body Position Supine Prep Area penis Prep Agents Betadine Solution Skin. Condition Unable to Visualize Description clothed Additional None Specimens Collected Vitals - EU Blood Pressure 170/90 Pulse 77 bpm Respirations 18 br/min SPO2 98 % IandO - EU Outcomes Met? Yes Last Modified By: Monica Lanier RN 11/28/23 15:44:03 Post-Care Text: The patient is free from signs and symptoms of injury caused by extraneous objects Sign Out FTURO Entry 1 Before Patient Leaves OR Nurse verbally Yes Nurse verbally Yes confirms with the confirms with the team the name of team that the procedure(s) instrument, sponge, recorded and needle counts are correct (or N/A) Nurse verbally n/a Nurse verbally Yes confirms with the confirms with the team how the team whether there specimen is labeled are any equipment (including patient problems to be name), if applicable addressed Sign Out Complete 11/28/23 15:49:00 Last Modified By: Monica Lanier RN 11/28/23 15:49:32 Case Comments Finalized By: Monica Lanier RN Document Signatures Signed By: Monica Lanier RN 11/28/23 15:54 Normal [facility] Main OR Preoperative Recordo n 11-28-2023 Main OR Preoperative Record Holding Area Document Type FTURO Summary Primary Physician: Bryant TAO MD Finalized Date/Time: 11/28/23 15:10:28 Pt. Name: ALICJA REYES /Sex: 1955 Male Med Rec #: [id number] Physician: Bryant TAO MD Financial #: [id number] Pt. Type: O Room/Bed: / Admit/Disch: 11/28/23 13:21:43 - Institution: Case Times Holding FTURO Pre-Care Text: Verifies consent for planned procedure, identifies individual values and wishes concerning care, includes family members in perioperative teaching Secures patient's records' belongings, and valuables, maintains patient's dignity and privacy, and maintains patient confidentiality Entry 1 In Holding 11/28/23 15:06:00 Outcomes Met? Yes Last Modified By: Ivania Hager LPN 11/28/23 15:06:59 Post-Care Text: The patient participates in decisions affecting his or her perioperative plan of care The patient's right to privacy is maintained Surgery Checklist FTURO Entry 1 Patient Birthday Procedure Surgical Consent, With Identification: Verification: Patient NPO after Midnight: n/a Limitations: up ad marlys Complaints of Pain: No Skin Integrity Intact, Secor, Warm, & Dry Vitals - EU Blood Pressure 170/90 Pulse 77 bpm Respirations 80 br/min SPO2 Last Modified By: Ivania Hager LPN 11/28/23 15:10:23 Finalized By: Ivania Hager LPN Document Signatures Signed By: Ivania Hager LPN 11/28/23 15:10 Normal [facility] Operative Reporton Operative Report Patient: ALICJA REYES Age: 68 years Sex: Male : 1955 Associated Diagnoses: None Author: Bryant TAO MD Procedure Operative Information Details: Date/ Time: 11/28/2023 15:54:00. Pre-Op Dx: Feeling of incomplete bladder emptying (GZI67-XR R39.14, Working, Medical), Hypotonic neurogenic bladder (TQR25-SW N31.9, Working, Medical), Urinary retention (VJF39-RC R33.9, Working, Medical), BPH with obstruction/lower urinary tract symptoms (TQO40-FE N40.1, Working, Medical). Post-Op Dx: Same. Anesthesia Type: Local. Procedure: Local Cystoscopy. Complications: None. Risks/Benefits/Inform ed Consent: Surgical risks, benefits, details of the procedure have been explained to the patient, Full informed consent has been obtained. Intraoperative Information Prepped: Patient is brought back to the endoscopy suite, Patient is placed in supine position, Patient prepped in the usual fashion with Betadine solution, 2% Xylocaine Jelly is placed per Urethra, After waiting several minutes the Cystoscope is introduced. The Urethra is: Normal. The Prostatic Urethra is: Unobstructed, Moderate Hypertrophy, 3 cm long. No median lobe. . The Bladder is: Normal, Trabeculated Severe (3), No tumor, no stones, retained urine and fluid from the bladder function testing. . The ureteral orifices: Show efflux of clear urine. Devices Implanted: None. Removal: Cystoscope is removed, The patient tolerated it well. Postoperative Information Discharge: Patient is discharged home with antibiotic coverage, Follow up arranged, Discussed options. Discussed with him results of urodynamics and cystoscopy. Minimal prostatic obstruction and poor bladder function. 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 He will do a voiding diary. He continues to self cath at least 2-3 times per day. He needs to continue this as the majority of his urine output seems to be coming from the catheterizations. The voiding diary should settle light on this. He agrees with the plan.. Normal [facility] Comment on above: Result Comment: Elec tronically Signed By: EMMY REYNOLDS, Bryant Chamorro.oliver\Date and Time Signed: 11/28/23 15:57 EDT Outpatient Surgery Discharge Instructionon 11-28-2023 Outpatient Surgery Discharge Instruction [id number]# 1.00TIFF Normal [facility] Outpatient Surgery Discharge Instruction [address] [address] Patient Discharge Instructions PERSON INFORMATION Name: ALICJA REYES Date of : 1955 Current Date: 11/28/2023 15:54:26 PHYSICIANS Admitting Physician: Bryant TAO MD Comment: Discharge Diagnosis: ALICJA REYES has been given the following list of follow-up instructions, prescriptions, and patient education materials: IF UNABLE TO CONTACT YOUR PHYSICIAN AND YOU FEEL IT IS AN EMERGENCY, GO TO THE NEAREST EMERGENCY ROOM OR CALL 911 Follow up: With: Address: When: Bryant TAO [address] [place] [address] AVE, [address], [facility] [address] [place] [address] Business (1) Comments: As we discussed, I would like to do the voiding diary to see what is exactly going on with the amount voided and the amount catheterized voiding diary to see what is exactly going on with the amount voided and the amount catheterized. You can do this several times in the next couple weeks or so and deliver this to the office so I can look at it and come up with a plan. Please finish your antibiotics. Please continue to intermittently catheterize to be sure you are at least emptying the bladder intermittently. Type Location Start [facility] [place] [facility]16/[facility]23 9:00 AM 12/16/2023 9:15 AM Confirmed URO [place] [facility] [place] 01/10/2024 8:15 AM 01/10/2024 8:30 AM Confirmed Medicare Wellness Subsequent [facility] 07/09/2024 8:00 AM 07/09/2024 9:00 AM Confirmed Comment: PATIENT EDUCATION INFORMATION Instructions: Cystoscopy ? Voiding after the procedure: there may be some pain, burning, urgency, frequency and blood tinged urine following the procedure. These symptoms usually resolve within 2-5 days. Drink the amount of fluid it takes to keep the urine pink to yellow or clear in color. Drinking enough water and fluids will help to ease any discomfort after your procedure. ? If you are having problems that seem out of the ordinary, please call. ? If unable to contact your physician and you feel it is an emergency, go to the nearest emergency room or call 911 ? Diet ? you may resume your normal diet. ? Activity ? you may resume your normal activities ? Call if you have a fever over 100 degrees. I, ALICJA REYES, have received the attached patient education materials/instruction s and have verbalized understanding: May we do a follow up call? Yes No I was present when discharge instructions were given Patient Signature Date Clinican/Nurse Signature Date You may receive a survey from Daphne Gimenez asking you to rate your care experience. Your feedback is important and will help us understand what we do well and how we can improve the quality of care we provide to you, your loved ones and our community. It?s an honor to serve you. Thank you for choosing [facility] Family Medicine Office/Clini c Noteon 11-01-2023 Family Medicine Office/Clinic Note HPI Staff Alicja is a 68 year old male presenting for one month follow up hypokalemia, mental Follow up for Mental Status: Medication adherence- Yes, takes medication as prescribed Medication refill needed: no Suicidal thoughts-Not at this time Most recent PHQ9: 7 flu: UTD 03/16/23 questions/concerns: needs omeprazole refilled to mail away pharmacy History of Present Illness - Pt presents for follow up. - Feeling dizzy again - HR is elevated - Did a urine test this morning and is seeing urology - No a1c of record. Review of Systems PHQ Score Initial Depression Screen Score: 2 SCORE Physical Exam Vitals & Measurements T: 36.7 ?C(Oral) HR: 114(Peripheral) RR: 16 BP: 130/66 SpO2: 97% HT: 69 in HT: 175.4 cm WT: 102.4 kg WT: 225.28 lb BMI: 33.28 General: alert, no acute distress ENMT: oral mucosa moist, Cardiovascular: Tachy with a systolic murmur in the aortic region. normal peripheral perfusion Respiratory: Lungs CTA, respirations non labored Extremities: no deformity, no trauma Neurological: oriented x 4, LOC appropriate for age, CN II-XII intact, motor strength equal & normal bilaterally, speech normal Abdomen: Soft, Nontender, Non-distended, + BS Assessment/Plan 1. Major depressive disorder, recurrent, moderate (F33.1: Major depressive disorder, recurrent, moderate) Stable. - Continue on meds as before 2. Hypokalemia (E87.6: Hypokalemia) - Will recheck today. Likely resolved 3. BMI 33.0-33.9,adult (Z68.33: Body mass index [BMI] 33.0-33.9, adult) - BMI education given 4. Class 1 obesity due to excess calories in adult (E66.09: Other obesity due to excess calories) - Diet and exercise advised 5. Smokeless tobacco use (Z72.0: Tobacco use) - Please stop using nicotine products 6. Type 2 diabetes mellitus with hypercholesterolemia (E11.69: Type 2 diabetes mellitus with other specified complication) - Will check an A1c today. 7. Murmur (R01.1: Cardiac murmur, unspecified) - Echo ordered. - With hx of dizziness we need to look at the function 8. Tachycardia (R00.0: Tachycardia, unspecified) - Will order today. Pure hypercholesterolemia, unspecified (E78.00: Pure hypercholesterolemia, unspecified) Follow-up No qualifying data available Patient Education BMI for Adults Problem List/Past Medical History Ongoing Alcohol abuse BPH with urinary obstruction Diabetic nephropathy associated with type 2 diabetes mellitus Diastolic dysfunction Dizziness Edema Elevated PSA Fatigue Feeling of incomplete bladder emptying Gastroesophageal reflux disease without esophagitis Hematuria Hypercholesterolemia Hypertension Hypokalemia Incomplete bladder emptying Kidney stone Major depressive disorder, recurrent, moderate Murmur PIN (prostatic intraepithelial neoplasia) Primary hypertension Prostate cancer screening Recurrent UTI Right flank pain SOB (shortness of breath) on exertion Tachycardia Type 2 diabetes mellitus with hypercholesterolemia Urinary retention Historical No qualifying data Procedure/Surgical History Arthroscopy, back surgery, Carpal tunnel release, hand and elbow surgery LEFT, Hand tendon repaired, Spinal fusion. Medications aspirin 81 mg Oral EC Tab, 81 mg= 1 tab(s), Oral, Daily atorvastatin 40 mg Tab, 40 mg= 1 tab(s), Oral, Daily, 1 refills Cipro 500 mg Tab, See Instructions glipiZIDE 5 mg Tab, 10 mg= 2 tab(s), Oral, BID, 1 refills Glucophage XR 500 mg Tab-ER, 1000 mg= 2 tab(s), Oral, BID, 1 refills hydrochlorothiazide-l isinopril 12.5 mg-20 mg Tab, 1 tab(s), Oral, Daily Keflex 500 mg Cap, 500 mg= 1 cap(s), Oral, As Directed magnesium oxide 400 mg Tab, 400 mg= 1 tab(s), Oral, Daily metoprolol 25 mg ER Tab, 25 mg= 1 tab(s), Oral, Daily, 6 refills Misc DME Prescription, See Instructions, 3 refills Misc DME Prescription, See Instructions, 3 refills Misc DME Prescription, See Instructions, 3 refills Misc DME Prescription, See Instructions Norvasc 5 mg Tab, 10 mg= 2 tab(s), Oral, Daily, 6 refills omeprazole 40 mg Cap-DR, 40 mg= 1 cap(s), Oral, Daily potassium chloride 10 mEq Cap-ER, See Instructions, 3 refills tamsulosin 0.4 mg Cap, 0.4 mg= 1 cap(s), Oral, qPM Zofran ODT 4 mg Tab-Dis, 4 mg= 1 tab(s), Oral, q8hr, PRN Allergies CeleBREX (Anxiety, Unknown) Social History Alcohol - Medium Risk, 11/15/2012 Beer, Daily, 3.00 drinks/episode maximum. Alcohol use interferes with work or home: No. Drinks more than intended: No. Others hurt by drinking: No. Ready to change: No. Household alcohol concerns: No., 11/15/2012 Substance Abuse - Denies Substance Abuse, 11/15/2012 Tobacco - Low Risk, 11/15/2012 Former smoker, quit more than 30 days ago, quit 2005 Tobacco Use:. Smokeless tobacco user within last 30 days Smokeless Tobacco Use:. Cigarettes, Household tobacco concerns: No. Yes, 10/19/2023 Family History Primary malignant neoplasm of colon: Father. Immunizations Vaccine Date Status Comments influe (more content not included)... Normal [facility] Comment on above: Result Comment: Elec tronically Signed By: Ruiz REYNOLDS, Jose Thompson\.br\Date and Time Signed: 11/01/23 13:00 EDT Patient Educationon 11-01-19 Patient Education Nutrition BMI for Adults What [...] numbers. This can be done either in [place] or metric measurements. Note that charts and online BMI calculators are available to help you find your BMI quickly and easily without having to do these calculations yourself. To calculate your BMI in [place] measurements: 1. Measure your weight in [...] for Disease Control and Prevention: www.cdc.gov ? [place] [employer]: www.heart.org ? National Heart, Lung, and Blood [place]: www.nhlbi.nih.gov Summary ? Body mass index (BMI) is a number that is calculated from a person's weight and height. ? BMI may help estimate how much of a person's weight is composed of fat. BMI can help identify those who may be at higher risk for certain medical problems. ? BMI can be measured using Turkmen measurements or metric measurements. ? BMI charts are used to identify whether you are underweight, normal weight, overweight, or obese. This information is not intended to replace advice given to you by your health care provider. Make sure you discuss any questions you have with your health care provider. Document Revised: 02/13/2020 Document Reviewed: 12/21/2019 [employer] Patient Education ? 2022 [employer]. [facility] Consent for Treatmenton 10-04 Consent for Treatment [id number] .00TIFF [facility] Heart and Vascular Office/Cl inic Noteon 10-19-2023 Heart and Vascular Office/Clinic Note Chief Complaint 2 month follow up History of Present Illness Patient 68 male with past medical history of BPH, diabetes, GERD, hypertension. Patient comes in for 3-month follow-up Patient last saw Dr. Coulter and he increased amlodipine to 10 mg and added metoprolol 25 mg ER daily. Patient reports that he also stopped taking lisinopril-hydrochlor othiazide since last visit. Patient's current BP meds include amlodipine 10 mg, metoprolol 25 mg ER daily and tamsulosin 0.4 mg is likely affecting blood pressure some. Blood pressure in the office is better than previous visit, however still elevated at this time. Patient states that he is feeling well and denies chest pain, shortness of breath, lightheadedness/dizzi ness, heart palpitations. Patient does report that he is having some swelling in his lower extremities though. Not really affecting him negatively and does go down some by the end of the day, but always swells back up. Patient is unsure if it is worse since increasing amlodipine at last visit. Review of Systems PHQ Score Initial Depression Screen Score: 0 SCORE ROS - Provider Constitutional: no fever, no chills, no sweats, no weakness Respiratory: no shortness of breath, no cough Cardiovascular: no chest pain, positive for swelling in lower extremities Neuro: no dizziness. no loss of consciousness Physical Exam Vitals & Measurements HR: 94(Peripheral) BP: 158/88 SpO2: 98% HT: 68 in HT: 172 cm WT: 108.4 kg WT: 238.48 lb BMI: 36.64 General: alert, no acute distress Cardiovascular: regular rate and rhythm, systolic murmur normal peripheral perfusion Respiratory: Lungs CTAB, respirations non labored Extremities: 1+ edema left lower extremity. +1 edema right lower extremity Neurological: oriented x 4, LOC appropriate for age, speech normal Skin: Warm, dry, intact- no rash or concerning lesions Cardiac Diagnostics (08/02/2023 08:40 EST Echo Transthoracic Complete) Interpretation Summary No comparison study is available. Ejection Fraction = 65-70%. Grade I diastolic dysfunction, (abnormal relaxation pattern). The left ventricular wall motion is normal. There is Trace mitral regurgitation. Right ventricular systolic pressure is 19 mmHg. [1] (08/08/2023 15:47 EST NM Myocardial Spect Rest/Stress 1 Day) CONCLUSIONS: 1. Normal adequate Lexiscan/MPI. Negative for ischemia by electrocardiogram and myocardial perfusion imaging. 2. Normal left ventricular size and function with an ejection fraction of 67%. 3. Normal TID of 0.80. 4. The patient tolerated the procedure well. 5. This is a low risk study. [2] Assessment/Plan 1. Hypertension (I10: Essential (primary) hypertension) Pressure still high in the office today. Will add back on lisinopril-hydrochlor othiazide at 20-12.5 mg at this time. Was previously taking 40-25 mg, so we will go with a slightly lower dose. Continue with amlodipine 10 mg and metoprolol ER 25 mg. We will continue to monitor her leg swelling and see if it comes down with the addition of hydrochlorothiazide. Encourage patient to take blood pressure at home Orders: hydrochlorothiazide-l isinopril, 1 tab(s), Oral, Daily, 90 tab(s), Refill(s) 0, other reason (Rx) Follow-up with me in 2 months Portions of this record may have been created with voice recognition artificial intelligence software, specifically [employer], [employer] and or [employer]. Substitutions may have occurred due to the inherent limitations of voice recognition and artificial intelligence software. Follow-up No qualifying data available Problem List/Past Medical History Ongoing Alcohol abuse BPH with urinary obstruction Diabetic nephropathy associated with type 2 diabetes mellitus Diastolic dysfunction Dizziness Edema Elevated PSA Fatigue Feeling of incomplete bladder emptying Gastroesophageal reflux disease without esophagitis Hematuria Hypercholesterolemia Hypertension Hypokalemia Incomplete bladder emptying Kidney stone Major depressive disorder, recurrent, moderate Murmur PIN (prostatic intraepithelial neoplasia) Primary hypertension Prostate cancer screening Recurrent UTI Right flank pain SOB (shortness of breath) on exertion Tachycardia Type 2 diabetes mellitus with hypercholesterolemia Urinary retention Historical No qualifying data Procedure/Surgical History Arthroscopy, back surgery, Carpal tunnel release, hand and elbow surgery LEFT, Hand tendon repaired, Spinal fusion. Medications aspirin 81 mg Oral EC Tab, 81 mg= 1 tab(s), Oral, Daily atorvastatin 40 mg Tab, 40 mg= 1 tab(s), Oral, Daily, 1 refills Cipro 500 mg Tab, See Instructions glipiZIDE 5 mg Tab, 10 mg= 2 tab(s), Oral, BID, 1 refills Glucophage XR 500 mg Tab-ER, 1000 mg= 2 tab(s), Oral, BID, 1 refills hydrochlorothiazide-l isinopril 12.5 mg-20 mg Tab, 1 tab(s), Oral, Daily Keflex 500 mg Cap, 500 mg= 1 cap(s), Oral, As Directed magnesium oxide 400 mg Tab, 400 m (more content not included)... Normal [facility] Comment on above: Result Comment: Elec tronically Signed By: James CHRISTIAN, Jacinto Butler\.br\Date and Time Signed: 10/19/23 08:50 EDT Physician Orderon 10-19-2023 Physician Order [id number]# 1.00TIFF [facility] Pathology Noteon 10-17-2023 Pathology Note [id number] .00TIFF [facility] Ambulatory Visit Summaryon 0 09-22-2023 Ambulatory Visit Summary ALICJA REYES :1955 Visit Date:09/22/2023 Ambulatory Visit Instructions Your Diagnosis Elevated PSA PIN (prostatic intraepithelial neoplasia) BPH with urinary obstruction Feeling of incomplete bladder emptying Your Care Team Attending Physician - EMMY REYNOLDS, Bryant Vogel Primary Care Physician - Ruiz REYNOLDS, Jose E. This Is Your Medications List ciprofloxacin (Cipro 500 mg Tab) tamsulosin (tamsulosin 0.4 mg Cap) Contact prescribing physician if questions or concerns Misc Prescription (Misc DME Prescription) Misc Prescription (Misc DME Prescription) Misc Prescription (Misc DME Prescription) Misc Prescription (Misc DME Prescription) amlodipine (Norvasc 5 mg Tab) aspirin (aspirin 81 mg Oral EC Tab) atorvastatin (atorvastatin 40 mg Tab) glipiZIDE (glipiZIDE 5 mg Tab) hydrochlorothiazide-l isinopril (hydrochlorothiazide- lisinopril 12.5 mg-20 mg Tab) magnesium oxide (magnesium oxide 400 mg Tab) metformin (Glucophage XR 500 mg Tab-ER) metoprolol (metoprolol 25 mg ER Tab) omeprazole (omeprazole 40 mg Cap-DR) ondansetron (Zofran ODT 4 mg Tab-Dis) potassium chloride (potassium chloride 10 mEq Cap-ER) Procedures Performed Arthroscopy, back surgery, Carpal tunnel release, hand and elbow surgery LEFT, Hand tendon repaired, Spinal fusion. Discharge Vitals Temperature (Temporal Artery) 36.2 ?C Heart Rate (Peripheral) 84 Blood Pressure 136/84 Height 174.5 cm Height 69 in Weight 105.9 kg Weight 232.98 lb BMI 34.78 What to do next Scheduled Follow-Up Appointments Tuesday 12:00 PM EDT With: Yfn REYNOLDS, Troy Santamaria Where: Cardiology Clinic Tuesday 8:15 AM EDT With: Bryant TAO MD Where: [facility] [address] [address]- \.br\ You Need to Schedule the Following Appointments\.br\ Follow Up with Bryant TAO MD, URL When: \.br\ Where:\.br\ [address]\.br\ [place] [address]-\.br\ \.br\ Medications\.br\ What How Much When Instructions\.br\ Unchanged ciprofloxacin (Cipro 500 mg Tab) 1 Tablets By Mouth 2 times a day start 3 days prior to procedure \.br\ Unchanged tamsulosin (tamsulosin 0.4 mg Cap) 1 Capsules By Mouth Once a day (in the evening)\.br\ Unchanged amlodipine (Norvasc 5 mg Tab) 2 Tablets By Mouth Every day Contact prescribing physician if questions or concerns \.br\ Unchanged aspirin (aspirin 81 mg Oral EC Tab) 1 Tablets By Mouth Every day Contact prescribing physician if questions or concerns \.br\ Unchanged atorvastatin (atorvastatin 40 mg Tab) 1 Tablets By Mouth Every day Contact prescribing physician if questions or concerns \.br\ Unchanged glipiZIDE (glipiZIDE 5 mg Tab) 2 Tablets By Mouth 2 times a day Contact prescribing physician if questions or concerns \.br\ Unchanged hydrochlorothiazi de-lisinopril (hydrochlorothiaz ervin-lisinopril 12.5 mg-20 mg Tab) 2 Tablets By Mouth Every day Contact prescribing physician if questions or concerns \.br\ Unchanged magnesium oxide (magnesium oxide 400 mg Tab) 1 Tablets By Mouth Every day Contact prescribing physician if questions or concerns \.br\ Unchanged metformin (Glucophage XR 500 mg Tab-ER) 2 Tablets By Mouth 2 times a day Contact prescribing physician if questions or concerns \.br\ Unchanged metoprolol (metoprolol 25 mg ER Tab) 1 Tablets By Mouth Every day Contact prescribing physician if questions or concerns \.br\ Unchanged Misc Prescription (Misc DME Prescription) See instructions Alcohol prep pads Use to test blood sugars daily Dx E11.9 Contact prescribing physician if questions or concerns \.br\ Unchanged Misc Prescription (Misc DME Prescription) See instructions One Touch Ultra 2 glucose meter kit Use to tests sugars daily E11.9 Contact prescribing physician if questions or concerns \.br\ Unchanged Misc Prescription (Misc DME Prescription) See instructions One touch ultra 2 test strips Use to tests sugars once a day Dx E11.9 Contact prescribing physician if questions or concerns \.br\ Unchanged Misc Prescription (Misc DME Prescription) See instructions Soft click lancets Use to test blood sugars once a day Dx E11.9 Contact prescribing physician if questions or concerns \.br\ Unchanged omeprazole (omeprazole 40 mg Cap-DR) 1 Capsules By Mouth Every day Contact prescribing physician if questions or concerns \.br\ Unchanged ondansetron (Zofran ODT 4 mg Tab-Dis) 1 Tablets By Mouth Every 8 hours as needed for Nausea/Vomiting Contact prescribing physician if questions or concerns \.br\ Unchanged potassium chloride (potassium chloride 10 mEq Cap-ER) See instructions TAKE 1 CAPSULE BY MOUTH EVERY DAY Contact prescribing physician if questions or concerns \.br\ Allergies\.br\ CeleBREX (Anxiety, Unknown)\.br\ Problems\.br\ Ongoing - Any problem that you are currently receiving treatment for.\.br\ Alcohol abuse\.br\ BPH with urinary obstruction\.br\ Diabetic nephropathy associated with type 2 diabetes mellitus\.br\ Diastolic dysfunction\.br\ Dizziness\.br\ Edema\.br\ Elevated PSA\.br\ Fatigue\.br\ Feeling of incomplete bladder emptying\.br\ Gastroesophageal reflux disease without esophagitis\.br\ Hematuria\.br\ Hypercholesterole luis\.br\ Hypokalemia\.br\ Incomplete bladder emptying\.br\ Kidney stone\.br\ Major depressive disorder, recurrent, moderate\.br\ Murmur\.br\ PIN (prostatic intraepithelial neoplasia)\.br\ Primary hypertension\.br\ Prostate cancer screening\.br\ Recurrent UTI\.br\ Right flank pain\.br\ SOB (shortness of breath) on exertion\.br\ Tachycardia\.br\ Type 2 diabetes mellitus with hypercholesterole luis\.br\ Urinary retention\.br\ Patient Survey\.br\ You may receive a survey via text or e-mail asking about your office visit. Please share your experience with us by completing your survey. We appreciate your feedback and thank you for choosing us for your care.\.br\ Education Materials\.br\ Cystoscopy\.br\ Cystoscopy is a procedure that is used [...] is inserted through the urethra, into the bladder.\.br\ Cystoscopy may be recommended if you have:\.br\ ? \.br\ Urinary tract infections that keep coming back.\.br\ ? \.br\ Blood in the urine (hematuria).\.br\ ? \.br\ An inability to control when you urinate (urinary incontinence) or an overactive bladder.\.br\ ? \.br\ Unusual cells found in a urine sample.\.br\ ? \.br\ A blockage in the urethra, such as a urinary stone.\.br\ ? \.br\ Painful urination.\.br\ ? \.br\ An abnormality in the bladder found during an intravenous pyelogram (IVP) or CT scan.\.br\ Cystoscopy may also be done to remove a sample of tissue to be examined under a microscope (biopsy).\.br\ Tell a health care provider about:\.br\ ? \.br\ Any allergies you have.\.br\ ? \.br\ All medicines you are taking, including vitamins, herbs, eye drops, creams, and ylya-ugj-pdezjzj medicines.\.br\ ? \.br\ Any problems you or family members have had with anesthetic medicines.\.br\ ? \.br\ Any blood disorders you have.\.br\ ? \.br\ Any surgeries you have had.\.br\ ? \.br\ Any medical conditions you have.\.br\ ? \.br\ Whether you are or may be .\.br\ What are the risks?\.br\ Generally, this is a safe procedure. However, problems may occur, including:\.br\ ? \.br\ Infection.\.br\ ? \.br\ Bleeding.\.br\ ? \.br\ Allergic reactions to medicines.\.br\ ? \.br\ Damage to other structures or organs.\.br\ What happens before the procedure?\.br\ Medicines\.br\ Ask your health care provider about:\.br\ ? \.br\ Changing or stopping your regular medicines. This is especially important if you are taking diabetes medicines or blood thinners.\.br\ ? \.br\ Taking medicines such as aspirin and ibuprofen. These medicines can thin your blood. Do not take these medicines unless your health care provider tells you to take them.\.br\ ? \.br\ Taking bvvn-aww-ligqlac medicines, vitamins, herbs, and supplements.\.br\ Tests\.br\ You may have an exam or testing, such as:\.br\ ? \.br\ X-rays of the bladder, urethra, or kidneys.\.br\ ? \.br\ CT scan of the abdomen or pelvis.\.br\ ? \.br\ Urine tests to check for signs of infection.\.br\ General instructions\.br\ ? \.br\ Follow instructions from your health care provider about eating or drinking restrictions.\.br \ ? \.br\ Ask your health care provider what steps will be taken to help prevent infection. These steps may include:\.br\ ? \.br\ Washing skin with a germ-killing soap.\.br\ ? \.br\ Taking antibiotic medicine.\.br\ ? \.br\ Plan to have a responsible adult take you home from the hospital or clinic.\.br\ What happens during the procedure?\.br\ \.br\ ? \.br\ You will be given one or more of the following:\.br\ ? \.br\ A medicine to help you relax [facility] Urology Office/Clinic Noteon 09-22-2023 Urology Office/Clinic Note Chief Complaint F/U to review path report HPI Staff F/u to discuss pathology from [facility] Bx done 09/09/23. Dx: Elevated PSA, BPH with urinary obstruction and urinary retention CIC 2x daily- He didn't feel he needed to do it 3x daily PVR [id number] Could not give a urine sample today, he CIC 5 a.m. this morning and last time he urinated was right before he came here Dysuria: _denies Incomplete bladder emptying: denies Hematuria: _denies, last time seen blood was 4-5 days ago Frequency: _6x before breakfast rest of the day is every couple hours Urgency: _denies Nocturia: _2x nightly Stream: _yes hesitation, normal stream Leaking: _denies Post void dripping: _denies Wearing pads/ Depends: _denies Urge incontinence: _denies Stress incontinence: _denies Incontinence without Sensory Awareness: _denies Abdominal pain: _denies Flank pain: _denies Sexual complaints: _denies History of Present Illness Tests reviewed: reviewed path report. I have reviewed the previous health record information and history for this patient from [facility]. I have reviewed and verified the staff HPI to be accurate for this encounter. There have been no associated fever, chills, flank pain, or blood in the urine. Denies any urinary infections since last encounter. Review of Systems PHQ Score Initial Depression Screen Score: 0 SCORE ROS - Provider Constitutional: denies weight loss, denies hot flashes. Eyes: denies eye problems. Gastrointestinal: denies nausea, denies vomiting. Cardiovascular: denies chest pain or angina. Integumentary: no dryness Musculoskeletal: denies musculoskeletal symptoms. ENMT: denies otolaryngeal symptoms. Respiratory: no shortness of breath. Heme/Lymph: denies easy bleeding tendency, denies easy bruising tendency. Psychiatric: no confusion, no anxiety. Genitourinary: See HPI. Physical Exam Vitals & Measurements T: 36.2 ?C(Temporal Artery) HR: 84(Peripheral) BP: 136/84 HT: 69 in HT: 174.5 cm WT: 105.9 kg WT: 232.98 lb BMI: 34.78 General Appearance: alert, no distress, well nourished, well developed male. Assessment/Plan Portions of this record may have been created with voice recognition artificial intelligence software, specifically [employer], [employer] and or [employer]. Substitutions may have occurred due to the inherent limitations of voice recognition and artificial intelligence software. 1. Elevated PSA (R97.20: Elevated prostate specific antigen [PSA]) PSA: 06/22/11 - 0.41 11/09/18 - 0.41 01/10/20 - 0.36 02/03/21 - 0.44 07/13/22 - 0.43 04/04/23 - 6.1 MRI of prostate 07/21/23 [facility] [place] A focal area involving the anterior aspect of the R peripheral zone at the level of the mid gland measuring 5 x 4 mm. No gross or subcapsular extension is seen. PI-RADS 4. S/p TRUS/bx intuitive 09/09/23. Path report neg for malignancy. PIN is present. The pathology report was reviewed with the patient in detail today. There is no evidence of malignancy and no further evaluation of the tissue removed is planned. All questions were answered and the report discussed in terms that the patient could understand. Will continue to closely monitor PSA. Follow up in 4 months w/ PSA FT. 2. PIN (prostatic intraepithelial neoplasia) (N42.31: Prostatic intraepithelial neoplasia) S/p TRUS/bx intuitive 09/09/23. Path reveals PIN. Will continue to monitor PSA. 3. BPH with urinary obstruction (N40.1: Benign prostatic hyperplasia with lower urinary tract symptoms) MRI of prostate 07/21/23 [facility] [place] Prostate volume 26 cc. Grossly distended urinary bladder with partially visualized bilateral hydroureter. TALAMANTES is suspected and rosa cath should be contemplated. IPSS 22 (14) did not fill out today. See #4. Discussed cystoscopy to eval TALAMANTES and schedule UDS. Will schedule cysto and UDS. Prophy abx sent. The risks and benefits for cystoscopy have been discussed. The risks include bleeding, infection, and irritation of the bladder and urinary channel, among others. The patient, after being informed of procedural details and after questions have been answered, wishes to proceed. Full informed consent has been obtained. Will order Local anesthesia. 4. Feeling of incomplete bladder emptying (R39.14: Feeling of incomplete bladder emptying) 06/04/23 - [facility] ER due to chills and dizziness after dealing with a UTI for a few weeks. Found to have distended bladder with >1600mL. Had catheter placed with 2L output. Started on Tamsulosin 0.4 mg qd. Also given Cipro [address] AP wo con - Catheter in place. Unremarkable prostate and seminal vesicles. Punctate R renal stone. Modest bilateral hydroureteronephrosis through UVJs. 06/28/23 - Rosa removed/void trial 06/22/23 - Nurse visit, PVR [id number], pt refused cath. 06/23/23 - Taught CIC. 07/01/23 - Per message, avg residuals 40 oz, was told to increase CIC to BID. 07/12/23 - Per message, pt cathing BID, residuals 20 cc. recommended increasing to TID, UACS, BUN/CR, and (more content not included)... Normal [facility] Comment on above: Result Comment: Elec tronically Signed By: Bryant TAO MD\.br\Date and Time Signed: 09/22/23 13:08 EDT\.br\Electronically Co-Signed By: Allison Hernandez.br\Date and Time Co-Signed: 09/22/23 13:03 EDT Heart and Vascular Office/Cl inic Noteon 09-14-2023 Heart and Vascular Office/Clinic Note Chief Complaint here for test results ECHO 08/02/23 & NM Stress 08/08/23 History of Present Illness The patient is a male who presents today for evaluation of test results. The patient is doing well. He needs his blood pressure within normal range for his scheduled prostate biopsy on 09/01/2023. He does not check his blood pressure at home. He is taking Norvasc, hydrochlorothiazide, and lisinopril regularly. He was advised to take 2 for 4 days, but his blood pressure is still elevated. He has not taken metoprolol because his blood pressure went back to normal. Review of Systems Constitutional: no fever, no sweats, no weakness Skin: no rash, no lesions, no bruising/petechiae ENMT: no sore throat, no congestion, no hoarseness Respiratory: no shortness of breath, no cough, no orthopnea, no wheezing Cardiovascular: no chest pain, no palpitations, no edema Gastrointestinal: no nausea, no vomiting, no diarrhea, no GI bleeding Genitourinary: no anuria/oliguria no hematuria Musculoskeletal: no back pain, no trauma Neurologic: no headache, no dizziness, no numbness, no weakness Psychiatric: no sleeping problems, no irritability, no anxiety/depression. Heme/Lymph: no bleeding tendency, no bruising tendency Allergy/Immunologic: no recurrent infections, no impaired immunity Additional ROS info: Except as noted in the above Review of Systems and in the History of Present Illness all other systems have been reviewed and are negative or noncontributory Physical Exam Vitals & Measurements HR: 106(Peripheral) BP: 180/98 SpO2: 97% HT: 68 in HT: 172 cm WT: 106 kg WT: 233.2 lb BMI: 35.83 General: alert, no acute distress Skin: warm, dry intact Head: atraumatic, normocephalic Neck: trachea midline, no JVD, no bruit Eye: normal conjunctiva, sclera clear ENMT: oral mucosa moist Cardiovascular: regular rate and rhythm, no murmur, normal peripheral perfusion Respiratory: lungs CTA, respirations non labored Chest wall: no deformity. Gastrointestinal: soft, non-distended, no tenderness, no guarding. Back: no tenderness, normal ROM, normal alignment. Extremities: no edema, no deformity, no trauma Neurological: oriented x 4, LOC appropriate for age, sensation equal & normal bilaterally, speech normal Psychiatric: cooperative, affect appropriate for age, normal judgement, normal psychiatric thoughts. Assessment/Plan The patient's stress test and echo are normal. He needs his blood pressure to be stable for his upcoming prostate biopsy on 09/01/2023. I will increase his amlodipine to 10 mg and add metoprolol. I recommend him to have an appointment with Dr. Grace or his nurse. Follow-up The patient will follow up in a couple of months. Portions of this record may have been created with voice recognition artificial intelligence software, specifically [employer], [employer] and or [employer]. Substitutions may have occurred due to the inherent limitations of voice recognition and artificial intelligence software. ATTESTATION: Documentation services were performed after patient or guardian consented to allow [employer] to record this visit. SAMANTHA triage specialist and provider reviewed before signing. SAMANTHA: Phoebe Lilliana Oseo. Follow-up No qualifying data available Problem List/Past Medical History Ongoing Alcohol abuse BPH with urinary obstruction Diabetic nephropathy associated with type 2 diabetes mellitus Diastolic dysfunction Dizziness Edema Elevated PSA Fatigue Gastroesophageal reflux disease without esophagitis Hematuria Hypercholesterolemia Hypokalemia Incomplete bladder emptying Kidney stone Major depressive disorder, recurrent, moderate Murmur Primary hypertension Prostate cancer screening Recurrent UTI Right flank pain SOB (shortness of breath) on exertion Tachycardia Type 2 diabetes mellitus with hypercholesterolemia Urinary retention Historical No qualifying data Procedure/Surgical History Arthroscopy, back surgery, Carpal tunnel release, hand and elbow surgery LEFT, Hand tendon repaired, Spinal fusion. Medications aspirin 81 mg Oral EC Tab, 81 mg= 1 tab(s), Oral, Daily atorvastatin 40 mg Tab, 40 mg= 1 tab(s), Oral, Daily, 1 refills glipiZIDE 5 mg Tab, 10 mg= 2 tab(s), Oral, BID, 1 refills Glucophage XR 500 mg Tab-ER, 1000 mg= 2 tab(s), Oral, BID, 1 refills hydrochlorothiazide-l isinopril 12.5 mg-20 mg Tab, 2 tab(s), Oral, Daily, 3 refills magnesium oxide 400 mg Tab, 400 mg= 1 tab(s), Oral, Daily metoprolol 25 mg ER Tab, 25 mg= 1 tab(s), Oral, Daily, 6 refills Misc DME Prescription, See Instructions, 3 refills Misc DME Prescription, See Instructions, 3 refills Misc DME Prescription, See Instructions, 3 refills Misc DME Prescription, See Instructions Norvasc 5 mg Tab, 10 mg= 2 tab(s), Oral, Daily, 6 refills omeprazole 40 mg Cap-DR, 40 mg= 1 cap(s), Oral, Daily potassium chloride 10 mEq Cap-ER, 10 mEq= 1 cap(s), Oral (more content not included)... Normal [facility] Comment on above: Result Comment: Elec tronically Signed By: Yfn REYNOLDS, Troy Santamaria\.br\Date and Time Signed: 09/14/23 09:16 EDT\.br\Electronically Co-Signed By: Darling Keen\.br\Date and Time Co-Signed: 08/19/23 18:28 EDT Pathology Noteon 09-14-2023 Pathology Note [id number] .00TIFF Normal [facility] Glucose Glucometer (BldC) [M ass/Vol]Ordered By: Bryant Tao on 09-09-2023 Glucose [Mass/Vol] 199 mg/dL [facility] Comment on above: Random Glucose Refer ence Range is dependent on time and content of last meal. Glucose of more than 200 mg/dL in a nonstressed, ambulatory subject supports the diagnosis of Diabetes Mellitus. Glucose Poct Glucometerson 0 09-09-2023 Glucose [Mass/Vol] 199 mg/dL Normal [facility] Comment on above: Result Comment: [facility] Glucose Reference Range is dependent on time and content of last meal. Glucose of more than 200 mg/dL in a nonstressed, ambulatory subject supports the diagnosis of Diabetes Mellitus. PERFORMED BY: [facility] [address] [place] [address] PATHOLOGIST NET APPLICATION ARCHITECT ELVI MCNULTY M.D. Performed By: #### G LUMARCO #### Point of Care testing , Glucose [Mass/Vol] 193 mg/dL Normal [facility] Comment on above: Result Comment: [facility] Glucose Reference Range is dependent on time and content of last meal. Glucose of more than 200 mg/dL in a nonstressed, ambulatory subject supports the diagnosis of Diabetes Mellitus. PERFORMED BY: [facility] [address] [place] [address] PATHOLOGIST NET APPLICATION ARCHITECT ELVI MCNULTY M.D. Performed By: #### G LULS #### Point of Care testing , Kody 09-09-2023 L Specimen: Received: 09/09/23 Status: JUAN Tolentino Num: [id number] Spec Type: Surgical Subm Dr: Bryant Tao MD Tissues: A Prostate - Needle Biopsy (LT BASE LATERAL) B Prostate - Needle Biopsy (LT BASE MEDIAL) C Prostate - Needle Biopsy (LT MID LATERAL) D Prostate - Needle Biopsy (LT MID MEDIAL) E Prostate - Needle Biopsy (LT APEX LATERAL) F Prostate - Needle Biopsy (LT APEX MEDIAL) G Prostate - Needle Biopsy (RT BASE LATERAL) H Prostate - Needle Biopsy (RT BASE MEDIAL) I Prostate - Needle Biopsy (RT MID LATERAL (BEATRIZ)) J Prostate - Needle Biopsy (RT MID MEDIAL (BEATRIZ)) K Prostate - Needle Biopsy (RT APEX LATERAL) L Prostate - Needle Biopsy (RT APEX MEDIAL) Procedures: HE/24, Gross/Micro L4/12, PIN Cocktail/3 Age/ Patient Sex Location Account Attending Physician Alicja Reyes 68/M [place] [id number] Bryant Tao MD SPEC NUM: RECD: 09/09/23 STATUS: JUAN TOLENTINO NUM: [id number] JUDITH: 09/09/23- SUBM DR: Bryant Tao MD ENTERED: 09/09/23 [facility] DR: SPEC TYPE: Surgical DEPT: S ORDERED: HE/24, Gross/Micro L4/12, PIN Cocktail/3 ORDERED: HE/24, Gross/Micro L4/12, PIN Cocktail/3, USS/21 Pathological Diagnosis A, prostate biopsy, left base lateral -Benign prostate tissue with mild atrophic glandular dilatation, 1 small focus of mild chronic inflammation, and occasional minute foci of minor acute inflammation B, prostate biopsy, left base medial: -Benign prostate tissue with mild atrophic glandular dilatation in 1 fragment C, Prostate biopsy, left mid lateral: -Benign prostate tissue with occasional mild acute inflammation in several scattered individual glands in at least 2 fragments D, prostate biopsy, left mid medial: -Benign prostate tissue with 1 large focus each of moderate acute inflammation in both fragments, and a few minute foci of mild chronic inflammation are also noted in one of the -------- Specimen: Received: 09/09/23 Status: JUAN Tolentino Num: [id number] Spec Type: Surgical Subm Dr: Bryant Tao MD Tissues: A Prostate - Needle Biopsy (LT BASE LATERAL) B Prostate - Needle Biopsy (LT BASE MEDIAL) C Prostate - Needle Biopsy (LT MID LATERAL) D Prostate - Needle Biopsy (LT MID MEDIAL) E Prostate - Needle Biopsy (LT APEX LATERAL) F Prostate - Needle Biopsy (LT APEX MEDIAL) G Prostate - Needle Biopsy (RT BASE LATERAL) H Prostate - Needle Biopsy (RT BASE MEDIAL) I Prostate - Needle Biopsy (RT MID LATERAL (BEATRIZ)) J Prostate - Needle Biopsy (RT MID MEDIAL (BEATRIZ)) K Prostate - Needle Biopsy (RT APEX LATERAL) L Prostate - Needle Biopsy (RT APEX MEDIAL) Procedures: , Gross/Micro , PIN Cocktail/3 -------- Patient: Alicja Reyes [id number] (Continued) -------- Specimen: Received: 09/09/23 (Continued) Pathological Diagnosis (Continued) Signed (signature on file) Cy Jansen MD 09/13/23 1537 -------- Specimen: Received: 09/09/23 Status: JUAN Tolentino Num: [id number] Spec Type: Surgical Subm Dr: Bryant Tao MD Tissues: A Prostate - Needle Biopsy (LT BASE LATERAL) B Prostate - Needle Biopsy (LT BASE MEDIAL) C Prostate - Needle Biopsy (LT MID LATERAL) D Prostate - Needle Biopsy (LT MID MEDIAL) E Prostate - Needle Biopsy (LT APEX LATERAL) F Prostate - Needle Biopsy (LT APEX MEDIAL) G Prostate - Needle Biopsy (RT BASE LATERAL) H Prostate - Needle Biopsy (RT BASE MEDIAL) I Prostate - Needle Biopsy (RT MID LATERAL (BEATRIZ)) J Prostate - Needle Biopsy (RT MID MEDIAL (BEATRIZ)) K Prostate - Needle Biopsy (RT APEX LATERAL) L Prostate - Needle Biopsy (RT APEX MEDIAL) Procedures: /, Gross/Micro L4/12, PIN Cocktail/3 -------- Patient: Alicja Reyes [id number] (Continued) -------- Specimen: Received: 09/09/23 (Continued) Pathological Diagnosis (Continued) fragments, and the rare minute suggested foci of low-grade PIN -PIN cocktail immunostain with provided control also showing findings supporting the above interpretation E, prostate biopsy, left apex lateral: -Benign prostate tissue with mild atrophic glandular dilatation and patchy foci of minor to mild acute inflammation in both fragments F, prostate biopsy, left apex medial: -Benign prostate tissue with few foci of mild to moderate acute inflammation in both fragments -Focal mild chronic inflammation (more content not included)... Normal [facility] Operative Reporton Operative Report [id number] .00TIFF Normal [facility] Progress Note-Physicianon Progress Note-Physician Patient: ALICJA REYES Age: 68 years Sex: Male : 1955 Associated Diagnoses: None Author: Juan Rosario Jr, DO Preoperative Information Anesthesia Preop Info: Time patient last ate or drank 09/01/2023 00:00:00. Anesthesia history: Patient history: None. Family history+: None. Informed consent: Signed by patient. Re-evaluation prior to induction: Initial evaluation reviewed: No significant change. Review of Systems Eye: Negative except as documented in history of present illness. Ear/Nose/Mouth/Throat : Negative except as documented in history of present illness. Respiratory: Negative except as documented in history of present illness. Cardiovascular: Negative except as documented in history of present illness. Musculoskeletal: Negative except as documented in history of present illness. Neurologic: Negative except as documented in history of present illness. Health Status Allergies: Allergic Reactions (Selected) Severity Not Documented CeleBREX- Unknown and anxiety. Problem list: All Problems Type 2 diabetes mellitus with hypercholesterolemia / SNOMED CT 783217400 / Confirmed linked DM with HLD per OP CDI policy. Tachycardia / SNOMED CT 5855956 / Confirmed Right flank pain / SNOMED CT 833296094 / Confirmed Urinary retention / SNOMED CT 756289546 / Confirmed Diabetic nephropathy associated with type 2 diabetes mellitus / SNOMED CT 9521075019 / Confirmed Recurrent UTI / SNOMED CT 034746939 / Confirmed Major depressive disorder, recurrent, moderate / SNOMED CT 232439919 / Confirmed added per 06/10/2023 query response. Elevated PSA / SNOMED CT 9070754041 / Confirmed Prostate cancer screening / SNOMED CT 323083922 / Confirmed Kidney stone / SNOMED CT 499731158 / Confirmed Incomplete bladder emptying / SNOMED CT 921286949 / Confirmed Hypokalemia / SNOMED CT 07602801 / Confirmed Hypercholesterolemia / SNOMED CT 13120657 / Confirmed Murmur / SNOMED CT 624555272 / Confirmed Gastroesophageal reflux disease without esophagitis / ICD-10-CM K21.9 / Confirmed Fatigue / SNOMED CT 747868689 / Confirmed Primary hypertension / SNOMED CT 36735598 / Confirmed Edema / SNOMED CT 015860965 / Confirmed SOB (shortness of breath) on exertion / SNOMED CT 513976608 / Confirmed Dizziness / SNOMED CT 5195829265 / Confirmed Diastolic dysfunction / SNOMED CT 7320738 / Confirmed Hematuria / SNOMED CT 226108768 / Confirmed BPH with urinary obstruction / SNOMED CT 1395550083 / Confirmed Alcohol abuse / SNOMED CT 32221828 / Confirmed Canceled: UTI symptoms / SNOMED CT 080574062 Canceled: Type 2 diabetes mellitus without complication, without long-term current use of insulin / ICD-10-CM E11.9 Canceled: Tachycardia / SNOMED CT 3623688 Canceled: Hospital discharge follow-up / SNOMED CT 6613417810 Canceled: Obesity / SNOMED CT 0315550198 Canceled: Alcohol abuse, in remission / SNOMED CT 075661007 Canceled: Morbid obesity / SNOMED CT 494067685 added per 05/13/2023 query response. Canceled: Urinary frequency / SNOMED CT 989602000 Canceled: Disorder of prostate / SNOMED CT 30067422 Canceled: Alcohol abuse / SNOMED CT 42311459 Histories Procedure history: back surgery. Comments: 11/15/2012 8:03 EDT - Susan Brower RN lower back Arthroscopy right knee ([id number]). Comments: 11/15/2012 8:04 EDT Susan Dean RN right hand and elbow surgery LEFT. Comments: 11/15/2012 8:04 EDT - Susan Brower RN left Carpal tunnel release LEFT ([id number]). Hand tendon repaired LEFT ([id number]). Comments: 01/13/2023 11:49 EDT - Elida HOUSE, Ruthann L left thumb tendon Spinal fusion x2 ([id number]). Social History Social & Psychosocial Habits Alcohol 08/19/2023 Risk Assessment: Medium Risk 08/19/2023 Type: Beer Frequency: Daily Maximum drinks per episode in last year: 3.00 Has alcohol use interfered with work or home life? No Do you ever drink more than intended? No Has anyone been hurt or at risk by your drinking? No Ready to change: No Concerns about alcohol use in household: No Substance Abuse 08/19/2023 Risk Assessment: Denies Substance Abuse Tobacco 08/19/2023 Risk Assessment: Low Risk 08/19/2023 Tobacco Use: Former smoker, quit more Smokeless tobacco use: Smokeless tobacco user wi Type: Cigarettes Concerns about tobacco use in household: No Comment: former smoker, quit 2005 - 07/25/2023 14:15 - Alicja Castellon Physical Examination Airway: Mallampati classification: II (soft palate, fauces, uvula visible). Respiratory: adequate air exchange. Cardiovascular: Regular rhythm. Plan [place] [employer] (ASA) physical status classification: Class III. Anesthetic Preoperative Plan: Anesthesia General. Normal [facility] Comment on above: Result Comment: Elec tronically Signed By: Juan Rosario Jr, DO\.br\Date and Time Signed: 09/02/23 09:03 EDT CHEMISTRYOrdered By: Lab ROP User on 09-01-2023 Glucose [Mass/Vol] 156 mg/dL High 55 - 99 mg/dL FTM C POC Subsection POC Device SN [id number] [facility] [place] Subsection POC User ID [id number] [address] [facility] [place] Subsection POC Username JOSE JIMENEZ Invalid Interpretation Code [facility] [place] Subsection Capillary Glucose POCon 08-05 Glucose [Mass/Vol] 156 mg/dL High 55-99 [facility] Comment on above: Performed By: #### 2 [id number] ####[facility] [address] [place] [address] Consent for Procedure/Surger yon 09-01-2023 Consent for Procedure/Surgery [id number]# 1.00TIFF Normal [facility] Consent for Treatmenton 08-05 Consent for Treatment [id number]#1 .00TIFF Normal [facility] H&P Updateon 09-01-2023 H&P Update [id number]# 1.00TIFF Normal [facility] Progress Note-Physicianon Progress Note-Physician Patient: ALICJA REYES Age: 68 years Sex: Male : 1955 Associated Diagnoses: None Author: EMMY REYNOLDS, Bryant Vogel Health Status Allergies: Allergic Reactions (Selected) Severity Not Documented CeleBREX- Unknown and anxiety., Allergies (1) Active Severity Reaction CeleBREX Unknown, Anxiety Current medications: Home Medications (16) Active aspirin 81 mg Oral EC Tab 81 mg = 1 tab(s), Oral, Daily atorvastatin 40 mg Tab 40 mg = 1 tab(s), Oral, Daily glipiZIDE 5 mg Tab 10 mg = 2 tab(s), Oral, BID Glucophage XR 500 mg Tab-ER 1,000 mg = 2 tab(s), Oral, BID hydrochlorothiazide-l isinopril 12.5 mg-20 mg Tab 2 tab(s), Oral, Daily magnesium oxide 400 mg Tab 400 mg = 1 tab(s), Oral, Daily metoprolol 25 mg ER Tab 25 mg = 1 tab(s), Oral, Daily Misc DME Prescription See Instructions Misc DME Prescription See Instructions Misc DME Prescription See Instructions Misc DME Prescription See Instructions Norvasc 5 mg Tab 10 mg = 2 tab(s), Oral, Daily omeprazole 40 mg Cap-DR 40 mg = 1 cap(s), Oral, Daily potassium chloride 10 mEq Cap-ER 10 mEq = 1 cap(s), Oral, Daily tamsulosin 0.4 mg Cap 0.4 mg = 1 cap(s), Oral, qPM Zofran ODT 4 mg Tab-Dis 4 mg = 1 tab(s), PRN, Oral, q8hr Problem list: Active Problems (24) Alcohol abuse BPH with urinary obstruction Diabetic nephropathy associated with type 2 diabetes mellitus Diastolic dysfunction Dizziness Edema Elevated PSA Fatigue Gastroesophageal reflux disease without esophagitis Hematuria Hypercholesterolemia Hypokalemia Incomplete bladder emptying Kidney stone Major depressive disorder, recurrent, moderate Murmur Primary hypertension Prostate cancer screening Recurrent UTI Right flank pain SOB (shortness of breath) on exertion Tachycardia Type 2 diabetes mellitus with hypercholesterolemia Urinary retention History of Present Illness The patient presents today secondary to the elevated PSA and the abnormal MRI of the prostate. Unfortunately there was confusion on how this procedure was going to be performed. The patient did not receive a preoperative enema and has not been on oral antibiotics. The patient had assumed he was undergoing a transperineal prostate biopsy when in actuality he was booked for a transrectal ultrasound-guided biopsy of the prostate with MRI guidance. Procedure was canceled with instructions to call the office to get this rescheduled. Although unhappy the patient and his agree with the plan. Normal [facility] Comment on above: Result Comment: Elec tronically Signed By: EMMY REYNOLDS, Bryant Vogel\.br\Date and Time Signed: 09/01/23 14:46 EDT Physician Orderon 08-22-2023 Physician Order [id number]#1. 00TIFF Normal [facility] U Microalbon 08-18-2023 Albumin DL <= 20 mg/L (U) [Mass/Vol] 7.8 mg/dL High 0.0-1.9 [facility] Comment on above: Performed By: #### 1 [id number] #### [facility] [address] [place] [address] Physician Orderon 08-17-2023 Physician Order [id number]# 1.00TIFF Normal [facility] U Protein/Creat Ratioon 08-04 Protein/Creatinine (U) [Ratio] 49.30 mg/gm Cr Normal .00-200.00 [facility] Comment on above: Performed By: #### 1 [id number] ####[facility] [address] [place] [address] U Creatinine 46.0 mg/dL Invalid Interpretation Code [facility] Comment on above: Performed By: #### 1 [id number] ####[facility] [address] [place] [address] Ur Total Protein 22.7 mg/dL Invalid Interpretation Code [facility] Comment on above: Performed By: #### 1 [id number] ####[facility] [address] [place] [address] Ambulatory Visit Summaryon 0 08-15-2023 Ambulatory Visit Summary ALICJA REYES :1955 Visit Date:08/15/2023 Ambulatory Visit Instructions Your Diagnosis Primary hypertension Type 2 diabetes mellitus with hypercholesterolemia Murmur BMI 34.0-34.9,adult Smokeless tobacco use Class 1 obesity due to excess calories in adult Diastolic dysfunction Pure hypercholesterolemia, unspecified Your Care Team Attending Physician - Jose Grace MD Primary Care Physician - Jose Grace MD This Is Your Medications List amlodipine (Norvasc 5 mg Tab) omeprazole (omeprazole 40 mg Cap-DR) ondansetron (Zofran ODT 4 mg Tab-Dis) Contact prescribing physician if questions or concerns Misc Prescription (Misc DME Prescription) Misc Prescription (Misc DME Prescription) Misc Prescription (Misc DME Prescription) Misc Prescription (Misc DME Prescription) aspirin (aspirin 81 mg Oral EC Tab) atorvastatin (atorvastatin 40 mg Tab) glipiZIDE (glipiZIDE 5 mg Tab) hydrochlorothiazide-l isinopril (hydrochlorothiazide- lisinopril 12.5 mg-20 mg Tab) magnesium oxide (magnesium oxide 400 mg Tab) metformin (Glucophage XR 500 mg Tab-ER) potassium chloride (potassium chloride 10 mEq Cap-ER) tamsulosin (tamsulosin 0.4 mg Cap) Procedures Performed Arthroscopy, back surgery, Carpal tunnel release, hand and elbow surgery LEFT, Hand tendon repaired, Spinal fusion. Discharge Vitals Temperature (Temporal Artery) 36.3 ?C Heart Rate (Peripheral) 100 Respiratory Rate 16 Blood Pressure 170/108 Height 172 cm Height 68 in Weight 107.2 kg Weight 235.84 lb BMI 36.24 What to do next Scheduled Follow-Up Appointments Tuesday 11:45 AM EDT With: Yfn REYNOLDS, Troy Santamaria Where: [facility] [place] 2023 1:30 PM EDT With: Where: [facility] Tuesday 8:00 AM EST With: Where: [facility] [place] Normal [facility] BMPon 08-15-2023 Anion gap [Moles/Vol] 15 mmol/L Normal 6-16 [facility] Comment on above: Performed By: #### 2 [id number], [id number], [id number] ####[facility] [address] [place] [address] Calcium [Mass/Vol] 8.3 mg/dL Low 8.9-11.1 [facility] Comment on above: Performed By: #### 2 [id number], [id number], [id number] ####[facility] [address] [place] [address] Chloride [Moles/Vol] 101 mmol/L Normal 101-111 [facility] Comment on above: Performed By: #### 2 [id number], [id number], [id number] ####[facility] [address] [place] [address] CO2 [Moles/Vol] 27 mmol/L Normal 21-31 [facility] Comment on above: Performed By: #### 2 [id number], [id number], [id number] ####[facility] [address] [place] [address] Creatinine [Mass/Vol] 1.4 mg/dL High 0.5-1.3 [facility] Comment on above: Performed By: #### 2 [id number], [id number], [id number] ####[facility] [address] [place] [address] Glucose [Mass/Vol] 258 mg/dL High 55-199 [facility] Comment on above: Performed By: #### 2 [id number], [id number], [id number] ####[facility] [address] [place] [address] Potassium [Moles/Vol] 3.6 mmol/L Normal 3.5-5.3 [facility] Comment on above: Performed By: #### 2 122620, [id number], [id number] ####[facility] [address] [place] [address] Sodium [Moles/Vol] 139 mmol/L Normal 135-145 [facility] Comment on above: Performed By: #### 2 [id number], [id number], [id number] ####[facility] [address] [place] [address] Urea nitrogen [Mass/Vol] 16 mg/dL Normal 5-21 [facility] Comment on above: Performed By: #### 2 492521, [id number], [id number] ####[facility] [id number] [place] [address] Urea nitrogen/Creatinine [Mass ratio] 11 No Units Normal 10-20 [facility] Comment on above: Performed By: #### 2 [id number], [id number], [id number] ####[facility] [address] [place] [address] CHEMISTRYOrdered By: SYSTEM SYSTEM on 08-15-2023 Anion gap [Moles/Vol] 15 mmol/L Normal 6 - 16 mEq/L R emisol Chem Calcium [Mass/Vol] 8.3 mg/dL Low 8.9 - 11.1 mg/dL Remisol Chem Chloride [Moles/Vol] 101 mmol/L Normal 101 - 111 mmol/ L Remisol Chem CO2 [Moles/Vol] 27 mmol/L Normal 21 - 31 mmol/L Remis ol Chem Creatinine [Mass/Vol] 1.4 mg/dL High 0.5 - 1.3 mg/d L Remisol Chem eGFR 54 mL/min/1.73 m2 Low >=59mL/min /1.73 m2 Remisol Chem Glucose [Mass/Vol] 258 mg/dL High 55 - 199 mg/dL Re misol Chem Potassium [Moles/Vol] 3.6 mmol/L Normal 3.5 - 5.3 mmol /L Remisol Chem Sodium [Moles/Vol] 139 mmol/L Normal 135 - 145 mmol/L Remisol Chem Urea nitrogen [Mass/Vol] 16 mg/dL Normal 5 - 21 mg/dL Remisol Chem Urea nitrogen/Creatinine [Mass ratio] 11 mg/mg Normal 10 - 20 Remisol Chem CHEMISTRYOrdered By: Irma Irwin on 08-15-2023 HbA1c (Bld) [Mass fraction] 7.4 % High <=5.9% [facility] Family Medicine Office/Clini c Noteon 08-15-2023 Family Medicine Office/Clinic Note HPI Staff Alicja is a 68 year old male presenting for bp recheck and A1C draw Patient is here for follow up on hypertension. How often are you checking your blood pressure? Doesnt check BP at home What are your average readings? N/A, Not checking at home Yearly BMP: 06/28/23 flu: UTD 03/16/23 questions/concerns: patient says Alicja was to talk to dr about ordering him a BP unit to [facility]. needs zofran refilled to [facility] also also needs omeprazole refilled has to go to mail away though History of Present Illness Bps are elevated again today. Pt states he took his meds 3 hours ago. Needs an A1c. Review of Systems PHQ Score Initial Depression Screen Score: 0 SCORE Physical Exam Vitals & Measurements T: 36.3 ?C(Temporal Artery) HR: 100(Peripheral) RR: 16 BP: 170/108 SpO2: 98% HT: 68 in HT: 172 cm WT: 107.2 kg WT: 235.84 lb BMI: 36.24 General: alert, no acute distress ENMT: oral mucosa moist, Cardiovascular: regular rate and rhythm, normal peripheral perfusion, Murmur still present. Respiratory: Lungs CTA, respirations non labored Extremities: no deformity, no trauma Neurological: oriented x 4, LOC appropriate for age, CN II-XII intact, motor strength equal & normal bilaterally, speech normal Abdomen: Soft, Nontender, Non-distended, + BS Assessment/Plan 1. Primary hypertension (I10: Essential (primary) hypertension) - Pt is still elevated. - Needs to take both of his meds - Will add Norvasc 5. - Follow up in 1 month Ordered: Basic Metabolic Panel Body Mass Index (BMI) documented 3008F Current smokeless tobacco user 1035F Depression Screening Negative 3352F HgbA1c Influenza immunization administered or previously received 4274F Microalbumin Level Urine Most recent diastolic blood pressure >=90 mm Hg 3080F Most recent systolic blood pressure >= 140 mm Hg 3077F Patient screen for fall risk: no falls in last year or 1 fall with no injury in last year 1101F U Protein/Creat Ratio 2. Type 2 diabetes mellitus with hypercholesterolemia (E11.69: Type 2 diabetes mellitus with other specified complication) - Will check an A1c today. - BMP for K level as well. Ordered: Basic Metabolic Panel Body Mass Index (BMI) documented 3008F Current smokeless tobacco user 1035F Depression Screening Negative 3352F HgbA1c Influenza immunization administered or previously received 4274F Microalbumin Level Urine Most recent diastolic blood pressure >=90 mm Hg 3080F Most recent systolic blood pressure >= 140 mm Hg 3077F Patient screen for fall risk: no falls in last year or 1 fall with no injury in last year 1101F U Protein/Creat Ratio 3. Murmur (R01.1: Cardiac murmur, unspecified) - Reviewed Echo. - MIld changes, but nothing of concern 4. BMI 34.0-34.9,adult (Z68.34: Body mass index [BMI] 34.0-34.9, adult) - BMI education given Ordered: Basic Metabolic Panel Body Mass Index (BMI) documented 3008F Current smokeless tobacco user 1035F Depression Screening Negative 3352F HgbA1c Influenza immunization administered or previously received 4274F Microalbumin Level Urine Most recent diastolic blood pressure >=90 mm Hg 3080F Most recent systolic blood pressure >= 140 mm Hg 3077F Patient screen for fall risk: no falls in last year or 1 fall with no injury in last year 1101F U Protein/Creat Ratio 5. Smokeless tobacco use (Z72.0: Tobacco use) - Please stop using nicotine products. Ordered: Basic Metabolic Panel Body Mass Index (BMI) documented 3008F Current smokeless tobacco user 1035F Depression Screening Negative 3352F HgbA1c Influenza immunization administered or previously received 4274F Microalbumin Level Urine Most recent diastolic blood pressure >=90 mm Hg 3080F Most recent systolic blood pressure >= 140 mm Hg 3077F Patient screen for fall risk: no falls in last year or 1 fall with no injury in last year 1101F U Protein/Creat Ratio 6. Class 1 obesity due to excess calories in adult (E66.09: Other obesity due to excess calories) - Diet and exercise advised Ordered: Basic Metabolic Panel Body Mass Index (BMI) documented 3008F Current smokeless tobacco user 1035F Depression Screening Negative 3352F HgbA1c Influenza immunization administered or previously received 4274F Microalbumin Level Urine Most recent diastolic blood pressure >=90 mm Hg 3080F Most recent systolic blood pressure >= 140 mm Hg 3077F Patient screen for fall risk: no falls in last year or 1 fall with no injury in last year 1101F U Protein/Creat Ratio 7. Diastolic dysfunction (I51.89: Other ill-defined heart diseases) - Will monitor. Pure hypercholesterolemia, unspecified (E78.00: Pure hypercholesterolemia, unspecified) - Continue on a statin. Orders: amlodipine, 5 mg = 1 tab(s), Oral, Daily, # 90 tab(s), Refills(s) 0, Pharmacy: [facility], 172, cm, 08/15/23 7:04:00 EDT, Height/Length Dosing, 107.2, kg, 08/15/23 7:04:00 EDT, Weight Dosing (more content not included)... Normal [facility] Comment on above: Result Comment: Elec tronically Signed By: Ruiz REYNOLDS, Jose Cordoba.br\Date and Time Signed: 08/15/23 07:18 EDT [id number] 08-15-2023 HbA1c (Bld) [Mass fraction] 7.4 % High <=5.9 [facility] Comment on above: Performed By: #### 2 [id number], [id number], [id number] ####[facility] [address] [place] [address] Patient Educationon 08-15-19 Patient Education Nutrition BMI for Adults What [...] numbers. This can be done either in [place] or metric measurements. Note that charts and online BMI calculators are available to help you find your BMI quickly and easily without having to do these calculations yourself. To calculate your BMI in [place] measurements: 1. Measure your weight in [...] for Disease Control and Prevention: www.cdc.gov ? [place] [employer]: www.heart.org ? National Heart, Lung, and Blood [place]: www.nhlbi.nih.gov Summary ? Body mass index (BMI) is a number that is calculated from a person's weight and height. ? BMI may help estimate how much of a person's weight is composed of fat. BMI can help identify those who may be at higher risk for certain medical problems. ? BMI can be measured using [place] measurements or metric measurements. ? BMI charts are used to identify whether you are underweight, normal weight, overweight, or obese. This information is not intended to replace advice given to you by your health care provider. Make sure you discuss any questions you have with your health care provider. Document Revised: 02/13/2020 Document Reviewed: 12/21/2019 [employer] Patient Education ? 2022 [employer] Normal [facility] eGFRon 08-15-2023 eGFR 54 mL/min/1.73 m2 Low >=59 [facility] Comment on above: Order Comment: Order added by Discern Expert. Performed By: #### 2 335144, [id number], [id number] ####[facility] [address] [place] [address] BMPon 08-11-2023 Anion gap [Moles/Vol] 13 mmol/L Normal 6-16 [facility] Comment on above: Performed By: #### 2 253426, [id number], [id number], [id number] #### [facility] [address] [place] [address] Calcium [Mass/Vol] 8.2 mg/dL Low 8.9-11.1 [facility] Comment on above: Performed By: #### 2 789996, 91263795, 74452302, 8742224 #### [facility] [address] [place] [address] Chloride [Moles/Vol] 98 mmol/L Low 101-111 [facility] Comment on above: Performed By: #### 2 029580, 17490411, 56675925, [id number] #### [facility] [address] [place] [address] CO2 [Moles/Vol] 32 mmol/L High 21-31 [facility] Comment on above: Performed By: #### 2 252986, 55451281, 15445254, 4681021 #### [facility] [address] [place] [address] Creatinine [Mass/Vol] 1.2 mg/dL Normal 0.5-1.3 [facility] Comment on above: Performed By: #### 2 426947, 74012608, 70935486, 2535907 #### [facility] [address] [place] [address] Glucose [Mass/Vol] 195 mg/dL Normal 55-199 [facility] Comment on above: Performed By: #### 2 274909, 58686455, 05464958, 4805594 #### [facility] [address] [place] [address] Potassium [Moles/Vol] 3.3 mmol/L Low 3.5-5.3 [facility] Comment on above: Performed By: #### 2 391758, [id number], 18869157, 7031014 #### [facility] [address] [place] [address] Sodium [Moles/Vol] 140 mmol/L Normal 135-145 [facility] Comment on above: Performed By: #### 2 168055, 92564740, 33772876, 5054966 #### [facility] [address] [place] [address] Urea nitrogen [Mass/Vol] 14 mg/dL Normal 5-21 [facility] Comment on above: Performed By: #### 2 719758, 24653223, 93688713, 3844330 #### [facility] [address] [place] [address] Urea nitrogen/Creatinine [Mass ratio] 12 No Units Normal 10-20 [facility] Comment on above: Performed By: #### 2 741177, 18522635, 77731219, 1964972 #### [facility] [address] [place] [address] CBC w/ Auto Diffon 4 Basophils/100 WBC (Bld) 0.9 % Normal 0.0-2.0 [facility] Comment on above: Performed By: #### 2 191062, 80921722, 29654298, 9881197 #### [facility] [address] [place] [address] Basophils/Leukocytes Auto (Bld) [Pure # fraction] 0.0 E9/L Normal 0.0-0.2 [facility] Comment on above: Performed By: #### 2 344120, 04661492, 11589452, 6928366 #### [facility] [address] [place] [address] Eosinophils (Bld) [#/Vol] 0.2 E9/L Normal 0.0-0.5 [facility] Comment on above: Performed By: #### 2 146106, 50434873, 40196822, 5011837 #### [facility] [address] [place] [address] Eosinophils/100 WBC (Bld) 3.1 % Normal 0.0-8.0 [facility] Comment on above: Performed By: #### 2 581676, 95960563, 47994817, 7054461 #### [facility] [address] [place] [address] Erythrocyte distribution width (RBC) [Ratio] 14.6 % High 10.9-14.2 [facility] Comment on above: Performed By: #### 2 848339, 63052642, 86197747, 3719836 #### [facility] [address] [place] [address] Hematocrit (Bld) [Volume fraction] 37.7 % Normal 37.7-49.0 [facility] Comment on above: Performed By: #### 2 333955, 70051155, 93848623, 8692577 #### [facility] [address] [place] [address] Hemoglobin (Bld) [Mass/Vol] 12.7 g/dL Low 13.5-17.5 [facility] Comment on above: Performed By: #### 2 374745, 34069077, 48010205, 9131254 #### [facility] [address] [place] [address] Lymphocytes (Bld) [#/Vol] 1.3 E9/L Normal 1.0-4.0 [facility] Comment on above: Performed By: #### 2 067488, 52987816, 91666723, 7077546 #### [facility] [address] [place] [address] Lymphocytes/100 WBC (Bld) 23.3 % Normal 14.0-50.0 [facility] Comment on above: Performed By: #### 2 164013, 96513313, 72038917, 7716440 #### [facility] [address] [place] [address] MCH (RBC) [Entitic mass] 31.7 pg Normal 27.0-34.0 [facility] Comment on above: Performed By: #### 2 697266, 90395498, 82711181, 0026746 #### [facility] [address] [place] [address] MCHC (RBC) [Mass/Vol] 33.7 g/dL Normal 31.4-36.0 [facility] Comment on above: Performed By: #### 2 193811, 13102872, 25854522, 9913903 #### [facility] [address] [place] [address] MCV (RBC) [Entitic vol] 94.0 fL Normal 80.0-100.0 [facility] Comment on above: Performed By: #### 2 622377, 69175451, 06062742, 9628747 #### [facility] [address] [place] [address] Monocytes (Bld) [#/Vol] 0.6 E9/L Normal 0.2-1.0 [facility] Comment on above: Performed By: #### 2 460104, 70273379, 73565928, 8597867 #### [facility] [address] [place] [address] Neutrophils (Bld) [#/Vol] 3.6 E9/L Normal 2.0-7.5 [facility] Comment on above: Performed By: #### 2 763542, 53874069, 49977297, 9026223 #### [facility] [address] [place] [address] Neutrophils/100 WBC (Bld) 62.7 % Normal 36.0-75.0 [facility] Comment on above: Performed By: #### 2 924928, 96373159, 05681153, 8957168 #### [facility] [address] [place] [address] Platelet mean volume (Bld) [Entitic vol] 7.7 fL Normal 6.4-10.8 [facility] Comment on above: Performed By: #### 2 871477, 44103494, 24742170, 2688379 #### [facility] [address] [place] [address] Platelets (Bld) [#/Vol] 237.0 E9/L Normal 150.0-500.0 [facility] Comment on above: Performed By: #### 2 910902, 86940112, 63455520, 7384625 #### [facility] [address] [place] [address] RBC (Bld) [#/Vol] 4.0 E12/L Low 4.3-5.9 [facility] Comment on above: Performed By: #### 2 647686, 15981679, 90842061, 0057581 #### [facility] [address] [place] [address] WBC corrected for nucl RBC Auto (Bld) [#/Vol] 5.8 E9/L Normal 4.0-11.0 [facility] Comment on above: Performed By: #### 2 718946, 00657185, 10130490, 1347711 #### [facility] [address] [place] [address] CHEMISTRYOrdered By: SYSTEM SYSTEM on 08-11-2023 Anion gap [Moles/Vol] 13 mmol/L Normal 6 - 16 mEq/L R emisol Chem Calcium [Mass/Vol] 8.2 mg/dL Low 8.9 - 11.1 mg/dL Remisol Chem Chloride [Moles/Vol] 98 mmol/L Low 101 - 111 mmol/ L Remisol Chem CO2 [Moles/Vol] 32 mmol/L High 21 - 31 mmol/L Remis ol Chem Creatinine [Mass/Vol] 1.2 mg/dL Normal 0.5 - 1.3 mg/d L Remisol Chem eGFR 65 mL/min/1.73 m2 Normal >=59mL/min /1.73 m2 Remisol Chem Glucose [Mass/Vol] 195 mg/dL Normal 55 - 199 mg/dL Re misol Chem Potassium [Moles/Vol] 3.3 mmol/L Low 3.5 - 5.3 mmol /L Remisol Chem Sodium [Moles/Vol] 140 mmol/L Normal 135 - 145 mmol/L Remisol Chem Urea nitrogen [Mass/Vol] 14 mg/dL Normal 5 - 21 mg/dL Remisol Chem Urea nitrogen/Creatinine [Mass ratio] 12 mg/mg Normal 10 - 20 Rem[facility] Chem COAGULATIONOrdered By: Bel Colon on 08-11-2023 aPTT Coag (PPP) [Time] 32.1 s Normal 25.1 - 36.5 second(s) [facility] Comment on above: Interpretive Data: Jaspreet pedro 15 days - 4 weeks 1 - 5 months 6 - 11 months 1 - 5 years 6 - 10 years 11 - 17 years PTT Mean: 35.4 (27.6-45.6) Mean: 33.5 (24.8-40.7) Mean: 32.4 (25.1-40.7) Mean: 31.6 (24.0-39.2) Mean: 31.6 (26.9-38.7) Mean: 31.0 (24.6-38.4) Pediatric Reference ranges were obtained from a study by Jan Bejarano et al. prepared from 1437 samples obtained at 7 different centers using the same coagulation reagent and instrumentation as [facility]. Currently there are no coagulation studies available worldwide for children to 14 days, and no normal ranges. Heparin therapeutic range (represented by Anti-Factor Xa activity of 0.2 - 0.4 U/mL) corresponds to PTT of 56.6 - 109.0 sec. INR Coag (PPP) [Relative time] 1.17 {INR} Invalid Interpretation Code [facility] Comment on above: Interpretive Data: I NR results are specifically intended to assess patients stabilized on long-term Anticoagulation therapy suggested INR s Less Intensive Anticoagulation 2.0 3.0 Conventional Range 3.0 4.5 PT Coag (PPP) [Time] 13.1 s High 9.4 - 1 2.5 second(s) [facility] Comment on above: Interpretive Data: 1 5 days - 4 weeks 1 - 5 months 6 -11 months 1-5 years 6-10 years 11 -17 years Mean: 11.2 (9.5-12.6) Mean: 11.0 (9.7-12.8) Mean: 11.0 (9.8-13.0) Mean: 11.3 (9.9-13.4) Mean: 11.7 (10.0-14.6) Mean: 11.8 (10.0 - 14.1) Pediatric Reference ranges were obtained from a study by william Mo al. prepared from 1437 samples obtained at 7 different centers using the same coagulation reagent and instrumentation as [facility]. Currently there are no coagulation studies available worldwide for children to 14 days, and no normal ranges. Consent for Treatmenton Consent for Treatment [id number] [facility] [id number]#1 .00TIFF Normal [facility] HEMATOLOGYOrdered By: SYSTEM SYSTEM on 08-11-2023 Basophils/100 WBC (Bld) 0.9 % Normal 0.0 - 2.0 % Remisol Heme Basophils/Leukocytes Auto (Bld) [Pure # fraction] 0.0 E9/L Normal 0.0 - 0.2 E9/L Rem[facility] Heme Eosinophils (Bld) [#/Vol] 0.2 E9/L Normal 0.0 - 0.5 E9/L Rem[facility] Heme Eosinophils/100 WBC (Bld) 3.1 % Normal 0.0 - 8.0 % [facility]e Erythrocyte distribution width (RBC) [Ratio] 14.6 % High 10.9 - 14.2 % [facility] Hematocrit (Bld) [Volume fraction] 37.7 % Normal 37.7 - 49.0 % [facility]e Hemoglobin (Bld) [Mass/Vol] 12.7 g/dL Low 13.5 - 17.5 gm/dL Rem[facility] Heme Lymphocytes (Bld) [#/Vol] 1.3 E9/L Normal 1.0 - 4.0 E9/L [facility]e Lymphocytes/100 WBC (Bld) 23.3 % Normal 14.0 - 50.0 % [facility]e MCH (RBC) [Entitic mass] 31.7 pg Normal 27.0 - 34.0 pg Rem[facility] Heme MCHC (RBC) [Mass/Vol] 33.7 g/dL Normal 31.4 - 36.0 gm /dL Rem[facility] Heme MCV (RBC) [Entitic vol] 94.0 fL Normal 80.0 - 100.0 fL Rem[facility] Heme Monocytes (Bld) [#/Vol] 0.6 E9/L Normal 0.2 - 1.0 E9/L Rem[facility] Heme Monocytes/100 WBC (Bld) 10.0 % Normal 4.0 - 14.0 % [facility] Heme Neutrophils (Bld) [#/Vol] 3.6 E9/L Normal 2.0 - 7.5 E9/L Rem[facility] Heme Neutrophils/100 WBC (Bld) 62.7 % Normal 36.0 - 75.0 % [facility] Heme Platelet mean volume (Bld) [Entitic vol] 7.7 fL Normal 6.4 - 10.8 fL Rem[facility] Heme Platelets (Bld) [#/Vol] 237.0 E9/L Normal 150.0 - 500.0 E9/L Remisol Heme RBC (Bld) [#/Vol] 4.0 E12/L Low 4.3 - 5.9 E12/L Re misol Heme WBC corrected for nucl RBC Auto (Bld) [#/Vol] 5.8 E9/L Normal 4.0 - 11.0 E9/L Remisol Heme PT & PTTon 08-11-2023 aPTT Coag (PPP) [Time] 32.1 second(s) Normal 25.1-36.5 [facility] Comment on above: Result Comment: Para meter 15 days - 4 weeks 1 - 5 months 6 - 11 months 1 - 5 years 6 - 10 years 11 - 17 years PTT Mean: 35.4 (27.6-45.6) Mean: 33.5 (24.8-40.7) Mean: 32.4 (25.1-40.7) Mean: 31.6 (24.0-39.2) Mean: 31.6 (26.9-38.7) Mean: 31.0 (24.6-38.4) Pediatric Reference ranges were obtained from a study by Jan Bejarano et al. prepared from 1437 samples obtained at 7 different centers using the same coagulation reagent and instrumentation as [facility]. Currently there are no coagulation studies available worldwide for children to 14 days, and no normal ranges. Heparin therapeutic range (represented by Anti-Factor Xa activity of 0.2 - 0.4 U/mL) corresponds to PTT of 56.6 - 109.0 sec. Performed By: #### 2 474658, [id number], [id number], [id number] #### [facility] [address] [place] [address] INR Coag (PPP) [Relative time] 1.17 {INR} Invalid Interpretation Code [facility] Comment on above: Result Comment: INR results are specifically intended to assess patients stabilized on long-term Anticoagulation therapy suggested INR?s ?Less Intensive Anticoagulation? 2.0 ? 3.0 Conventional Range 3.0 ? 4.5 Performed By: #### 2 364911, [id number], 65777547, 7998603 #### [facility] [address] [place] [address] PT Coag (PPP) [Time] 13.1 second(s) High 9.4-12.5 [facility] Comment on above: Result Comment: 15 d ays - 4 weeks 1 - 5 months 6 -11 months 1- 5 years 6-10 years 11 -17 years Mean: 11.2 (9.5-12.6) Mean: 11.0 (9.7-12.8) Mean: 11.0 (9.8-13.0) Mean: 11.3 (9.9-13.4) Mean: 11.7 (10.0-14.6) Mean: 11.8 (10.0 - 14.1) Pediatric Reference ranges were obtained from a study by william Mo al. prepared from 1437 samples obtained at 7 different centers using the same coagulation reagent and instrumentation as [facility]. Currently there are no coagulation studies available worldwide for children to 14 days, and no normal ranges. Performed By: #### 2 830588, 19879523, [id number], 9778064 #### [facility] [address] [place] [address] XR Chest 2 Viewson 4 XR Chest 2 Views Exam Date/Time: 08/11/2023 10:09 EST Reason for Exam: P.A.T. Report IMPRESSION: NO EVIDENCE OF ACTIVE CHEST DISEASE. CLINICAL HISTORY: P.A.T.. COMMENT: The heart is normal in size. The mediastinum is unremarkable. The lungs appear clear. No infiltration nor pleural effusion is evident. Ordering Provider: Parikh Ahmad FINAL REPORT Dictated: 08/11/2023 11:12 am Andres Montes M.D. Signed (Electronic Signature): 08/11/2023 11:12 am Signed by: Andres Montes M.D. Transcribed by: MARILOU Technologist: VLADIMIR Technical Comments Radiation Dose: Ka,r in mGy = na DAP = na Normal [facility] eGFRon 08-11-2023 eGFR 65 mL/min/1.73 m2 Normal >=59 [facility] Comment on above: Order Comment: Order added by Discern Expert. Performed By: #### 2 390606, [id number], [id number], [id number] #### [facility] [address] [place] [address] NM Myocardial Spect Rest/Str ess 1 Dayon 08-09-2023 NM Myocardial Spect Rest/Stress 1 Day Exam Date/Time: 08/08/2023 15:47 EST Reason for Exam: R00.0;Other (please specify) Report LEXISCAN/MPI 08/08/2023 INDICATIONS: Tachycardia. STUDY: After informed consent was obtained the patient was injected with 9.2 millicuries of Cardiolite for rest/SPECT imaging. The patient then underwent Lexiscan infusion receiving an additional 28.8 millicuries of Cardiolite for stress/SPECT imaging. RESTING ELECTROCARDIOGRAM: The patient has normal sinus rhythm, incomplete right bundle, possible old anterior wall myocardial infarction versus lead misplacement and nonspecific ST and T wave changes. LEXISCAN ELECTROCARDIOGRAM: The patient received Lexiscan infusion per protocol. The patient's heart rate slightly increased. The patient had some mild upsloping ST segment depression at peak infusion, however, this did not reach criteria for ischemia. No anginal symptoms noted. IMAGING: The patient appears to have normal LV size and function with a LVEF of 67% and normal LV end diastolic volume. TID is normal at 0.80. Rest perfusion imaging demonstrates adequate uptake in all regional marina. With stress there are no overt areas of ischemia noted. CONCLUSIONS: 1. Normal adequate Lexiscan/MPI. Negative for ischemia by electrocardiogram and myocardial perfusion imaging. 2. Normal left ventricular size and function with an ejection fraction of 67%. 3. Normal TID of 0.80. 4. The patient tolerated the procedure well. 5. This is a low risk study. FINAL REPORT Signed (Electronic Signature): 08/09/2023 7:11 am Signed by: Andrzej HENRY MD Transcribed by: joaquina Technologist: SCARLETT Technical Comments Rest Dose (mCi Tc99m Cardiolite): 9.2 Stress Dose (mCi Tc99M Cardiolite): 28.8 Normal [facility] Stress EKG Tracingson 2023 Stress EKG Tracings [id number]# 1.00TIFF Normal [facility] Consent for Treatmenton Consent for Treatment [id number]#1 .00TIFF Normal [facility] Consent for Treatmenton 07-08 Consent for Treatment [id number]#1 .00TIFF Normal [facility] Family Medicine Office/Clini c Noteon 07-28-2023 Family Medicine Office/Clinic Note Chief Complaint Subsequent Medicare Wellness Visit Review of Systems PHQ Score Initial Depression Screen Score: 0 SCORE Physical Exam Vitals & Measurements HR: 90(Peripheral) BP: 168/100 SpO2: 96% HT: 174 cm HT: 69 in WT: 104.2 kg WT: 229.24 lb BMI: 34.42 Assessment/Plan 1. Annual visit for general adult medical examination with abnormal findings (Z00.01: Encounter for general adult medical examination with abnormal findings) The patient was given a customized and personalized print out of all the current AHRQ USPSTF?s recommendations for preventative services and all current CDC recommended immunizations, relevant risk recommendations and the following patient brochures were given. Reviewed Medicare preventative services checklist. CDC-Falls Prevention and home safety screening reviewed. Patient denies any falls in last 12 months, voices no worry about falling, exhibits no problems with sitting, standing, or ambulation. Pt voices understanding with keeping walk way area free of clutter to prevent tripping and/or falling. [place] Advance Directives reviewed, forms provided for completion. Patient denies any problems with ADL?s and Instrumental ADL?s. Cognitive screening completed with memory and clock face drawing. Immunization Record reviewed with the patient. Discussed Shingrix vaccine with educational handout and availability. COVID vaccines have been administered, immunization record is up to date. Allergies and medications reviewed and up to date. Patient denies concerns with taking medication as prescribed, reviewed OTC medications with patient, medication list up to date. Blood tests were reviewed: are up to date. Colonoscopy, patient states he had Cologuard completed 1-2 years ago (records requested.) Reviewed pain symptoms with patient: patient denies pain. Reviewed all outside providers that patient follows. Last visit summary notes available in chart and/or have been requested. Follow up scheduled 08/15/2023 AWV has been scheduled, 07/09/2024 Abnormal findings with elevated BP, serial assessment completed and documented. 2. Encounter for screening for other disorder (Z13.89: Encounter for screening for other disorder) 15 minutes for completion of Alcohol screening questionnaire, documentation, discussion with patient, provider review. AUDIT score 5. Patient denies concerns at this time. 3. Screening declined by patient (Z53.20: Procedure and treatment not carried out because of patient's decision for unspecified reasons) Information provided and discussed with CDC recommendation that everyone born from 3973[birth year]1474 get tested for Hepatitis C. This is also referred to as baby boomers and are 5 times more likely to be at risk. Transmission of Hepatitis C was at its highest. Medicare does cover a once in a lifetime testing if a patient is non-symptomatic. Blood work has been ordered, will review results with PCP. Patient declines Hep C screening at this time. 4. BPH with urinary obstruction (N40.1: Benign prostatic hyperplasia with lower urinary tract symptoms) Patient follows with urology as directed. Patient is taking Flomax daily as prescribed. Patient is self-cathing TID. Denies any concerns at this time. Patient states he has plenty of supplies at home. 5. Major depressive disorder, recurrent, moderate (F33.1: Major depressive disorder, recurrent, moderate) Patient states symptoms managed without medication. Follows up with PCP with medication management and symptom control. PHQ-9 risk assessment completed with negative findings. Total risk score 2. Patient denies any suicidal ideations at this time. Reviewed additional signs/symptoms to monitor for and report to provider. 6. Primary hypertension (I10: Essential (primary) hypertension) Patient is taking lisinopril-hctz daily as directed. Patient does not have a BP monitor at home, he is requesting an RX to [facility] (message sent to PCP.) HTN stoplight reviewed with BP goal to be <140/90. Reviewed different factors that can alter blood pressure readings. Education handout provided with s/s to monitor for and report to provider. Patient is encouraged to increase portions of fruit, vegetables, fiber and increase exercise as much as tolerable. Reviewed importance with monitoring foods high in salt content and encouraged to limit intake, if unsure encouraged to discuss with their PCP. Encouraged patient to decrease or limit ETOH intake. Encouraged to eat more chicken, fish and lean white meats and limits red meats in diet. Discussed importance with keeping BP under good control to reduce CVA risk factors. Will continue to f/u with PCP during office visits and as needed. Follow up with PCP scheduled 08/15/2023. 7. Recurrent UTI (N39.0: Urinary tract infection, site not specified) Patient denies any urinary symptoms at visit. Patient is self-cathing TID. Discussed dietary recommendations to prevent UTI, increase foods high in active cultures such as yogurt and berries. Patient follows up with (more content not included)... [facility] Comment on above: Result Comment: Elec tronically Signed By: Jose Grace MD\.br\Date and Time Signed: 07/28/23 11:00 EST\.br\Electronically Co-Signed By: Alicja Castellon\.br\Date and Time Co-Signed: 07/25/23 15:48 EST [place] 07-28-2023 Screens [id number] .00TIFF [facility] Ambulatory Visit Summaryon 0 07-27-2023 Ambulatory Visit Summary ALICJA REYES :1955 Visit Date:07/27/2023 Ambulatory Visit Instructions Your Diagnosis Elevated PSA BPH with urinary obstruction Urinary retention Your Care Team Attending Physician - RAMANDEEP PORTER PA-C Primary Care Physician - Jose Grace MD This Is Your Medications List Contact prescribing physician if questions or concerns Misc Prescription (Misc DME Prescription) Misc Prescription (Misc DME Prescription) Misc Prescription (Misc DME Prescription) Misc Prescription (Misc DME Prescription) aspirin (aspirin 81 mg Oral EC Tab) atorvastatin (atorvastatin 40 mg Tab) ciprofloxacin (Cipro 500 mg Tab) glipiZIDE (glipiZIDE 5 mg Tab) hydrochlorothiazide-l isinopril (hydrochlorothiazide- lisinopril 12.5 mg-20 mg Tab) magnesium oxide (magnesium oxide 400 mg Tab) metformin (Glucophage XR 500 mg Tab-ER) omeprazole (omeprazole 40 mg Cap-DR) ondansetron (Zofran ODT 4 mg Tab-Dis) potassium chloride (potassium chloride 10 mEq Cap-ER) tamsulosin (tamsulosin 0.4 mg Cap) Procedures Performed Arthroscopy, back surgery, Carpal tunnel release, hand and elbow surgery, Hand tendon repaired, Spinal fusion. Discharge Vitals Heart Rate (Peripheral) 84 Blood Pressure 132/76 Height 174.5 cm Height 69 in Weight 102.3 kg Weight 225.06 lb BMI 33.6 What to do next Scheduled Follow-Up Appointments Tuesday 8:00 AM EST With: Where: Cardiovascular Services Tuesday 8:45 AM EST With: Where: Nuclear Medicine Tuesday 9:45 AM EST With: Where: Nuclear Medicine Tuesday 10:15 AM EST With: Where: Nuclear Medicine Tuesday 11:15 AM EST With: Where: Nuclear Medicine Tuesday 2:00 PM EST With: Where: [facility] Services Tuesday 3:00 PM EST With: Where: [facility] Tuesday 7:00 AM EDT With: Ruiz REYNOLDS, Jose Thompson Where: [facility] Normal [address] [place] [address]- \.br\ You Need to Schedule the Following Appointments\.br\ Follow Up with RAMANDEEP PORTER PA-C, URL When: \.br\ Where:\.br\ [address]br\ [place] [address]\.br\ Medications\.br\ What How Much When Instructions\.br\ Unchanged aspirin (aspirin 81 mg Oral EC Tab) 1 Tablets By Mouth Every day Contact prescribing physician if questions or concerns \.br\ Unchanged atorvastatin (atorvastatin 40 mg Tab) 1 Tablets By Mouth Every day Contact prescribing physician if questions or concerns \.br\ Unchanged ciprofloxacin (Cipro 500 mg Tab) See instructions Take 1 tab day prior to procedure and 1 tab day of procdure - afterwards Contact prescribing physician if questions or concerns \.br\ Unchanged glipiZIDE (glipiZIDE 5 mg Tab) 2 Tablets By Mouth 2 times a day Contact prescribing physician if questions or concerns \.br\ Unchanged hydrochlorothiazi de-lisinopril (hydrochlorothiaz ervin-lisinopril 12.5 mg-20 mg Tab) 2 Tablets By Mouth Every day Contact prescribing physician if questions or concerns \.br\ Unchanged magnesium oxide (magnesium oxide 400 mg Tab) 1 Tablets By Mouth Every day Contact prescribing physician if questions or concerns \.br\ Unchanged metformin (Glucophage XR 500 mg Tab-ER) 2 Tablets By Mouth 2 times a day Contact prescribing physician if questions or concerns \.br\ Unchanged Misc Prescription (Misc DME Prescription) See instructions Alcohol prep pads Use to test blood sugars daily Dx E11.9 Contact prescribing physician if questions or concerns \.br\ Unchanged Misc Prescription (Misc DME Prescription) See instructions One Touch Ultra 2 glucose meter kit Use to tests sugars daily E11.9 Contact prescribing physician if questions or concerns \.br\ Unchanged Misc Prescription (Misc DME Prescription) See instructions One touch ultra 2 test strips Use to tests sugars once a day Dx E11.9 Contact prescribing physician if questions or concerns \.br\ Unchanged Misc Prescription (Misc DME Prescription) See instructions Soft click lancets Use to test blood sugars once a day Dx E11.9 Contact prescribing physician if questions or concerns \.br\ Unchanged omeprazole (omeprazole 40 mg Cap-DR) 1 Capsules By Mouth Every day Contact prescribing physician if questions or concerns \.br\ Unchanged ondansetron (Zofran ODT 4 mg Tab-Dis) 1 Tablets By Mouth Every 8 hours as needed for Nausea/Vomiting Contact prescribing physician if questions or concerns \.br\ Unchanged potassium chloride (potassium chloride 10 mEq Cap-ER) 1 Capsules By Mouth Every day Contact prescribing physician if questions or concerns \.br\ Unchanged tamsulosin (tamsulosin 0.4 mg Cap) 1 Capsules By Mouth Once a day (in the evening) Contact prescribing physician if questions or concerns \.br\ Allergies\.br\ CeleBREX (Unknown)\.br\ Problems\.br\ Ongoing - Any problem that you are currently receiving treatment for.\.br\ Alcohol abuse\.br\ BPH with urinary obstruction\.br\ Diabetic nephropathy associated with type 2 diabetes mellitus\.br\ Dizziness\.br\ Edema\.br\ Elevated PSA\.br\ Fatigue\.br\ Gastroesophageal reflux disease without esophagitis\.br\ Hematuria\.br\ Hypercholesterole luis\.br\ Hypokalemia\.br\ Incomplete bladder emptying\.br\ Kidney stone\.br\ Major depressive disorder, recurrent, moderate\.br\ Murmur\.br\ Primary hypertension\.br\ Prostate cancer screening\.br\ Recurrent UTI\.br\ Right flank pain\.br\ SOB (shortness of breath) on exertion\.br\ Tachycardia\.br\ Type 2 diabetes mellitus with hypercholesterole luis\.br\ Urinary retention\.br\ Patient Survey\.br\ You may receive a survey via text or e-mail asking about your office visit. Please share your experience with us by completing your survey. We appreciate your feedback and thank you for choosing us for your care.\.br\ Education Materials\.br\ Transrectal Ultrasound-Guided Prostate Biopsy, Care After\.br\ The following information offers guidance on how to care for yourself after your procedure. Your health care provider may also give you more specific instructions. If you have problems or questions, contact your health care provider.\.br\ What can I expect after the procedure?\.br\ After the procedure, it is common to have:\.br\ ? \.br\ Pain and discomfort near your rectum, especially while sitting.\.br\ ? \.br\ Secor-colored urine due to small amounts of blood in your urine.\.br\ ? \.br\ A burning feeling while urinating.\.br\ ? \.br\ Blood in your stool (feces) or bleeding from your rectum.\.br\ ? \.br\ Blood in your semen.\.br\ Follow these instructions at home:\.br\ Medicines\.br\ ? \.br\ Take fvmt-fye-zlfzzlj and prescription medicines only as told by your health care provider.\.br\ ? \.br\ If you were given a sedative during your procedure, it can affect you for several hours. Do not drive or operate machinery until your health care provider says that it is safe.\.br\ ? \.br\ If you were prescribed an antibiotic medicine, take it as told by your health care provider. Do not stop using the antibiotic even if you start to feel better.\.br\ Activity\.br\ \.br\ ? \.br\ Return to your normal activities as told by your health care provider. Ask your health care provider what activities are safe for you.\.br\ ? \.br\ Ask your health care provider when it is okay for you to resume sexual activity.\.br\ ? \.br\ You may have to avoid lifting. Ask your health care provider how much you can safely lift.\.br\ General instructions\.br\ \.br\ ? \.br\ Drink enough fluid to keep your urine pale yellow.\.br\ ? \.br\ Watch your urine, stool, and semen for new or increased bleeding.\.br\ ? \.br\ Keep all follow-up visits. This is important.\.br\ Contact a health care provider if:\.br\ ? \.br\ You have any of the following:\.br\ ? \.br\ Blood clots in your urine or stool.\.br\ ? \.br\ Blood in your urine more than 2 weeks after the procedure.\.br\ ? \.br\ Blood in your semen more than 2 months after the procedure.\.br\ ? \.br\ New or increased bleeding in your urine, stool, or semen.\.br\ ? \.br\ Severe pain in your abdomen.\.br\ ? \.br\ Your urine smells bad or unusual.\.br\ ? \.br\ You have trouble urinating.\.br\ ? \.br\ Your lower abdomen feels firm.\.br\ ? \.br\ You have problems getting an erection.\.br\ ? \.br\ You have nausea or you vomit.\.br\ Get help right away if:\.br\ ? \.br\ You have a fever or chills. This could be a sign of infection.\.br\ ? \.br\ You have bright red urine.\.br\ ? \.br\ You have severe pain that does not get better with medicine.\.br\ ? \.br\ You cannot urinate.\.br\ Summary\.br\ ? \.br\ After this procedure, it is common to have pain and discomfort around your rectum, especially while sitting.\.br\ ? \.br\ You may have blood in your urine and stool after the procedure.\.br\ ? \.br\ It is common to have blood in your semen after this procedure.\.br\ ? \.br\ Get help right away if you have a fever or chills. This could be a sign of infection.\.br\ This information is not intended to replace advice given to you by your health care provider. Make sure you discuss any questions you have with your health care provider.\.br\ Document Revised: 11/16/2021 Document Reviewed: 11/16/2021 Elsevier Patient Education ? 2022 [employer].br\ Transrectal Ultrasound-Guided Prostate Biopsy\.br\ A transrectal ultras [facility] Patient Educationon 07-27-19 Patient Education Oncology Transrectal Ultrasound-Guided Prostate Biopsy, Care After The following information offers guidance on how to care for yourself after your procedure. Your health care provider may also give you more specific instructions. If you have problems or questions, contact your health care provider. What can I expect after the procedure? After the procedure, it is common to have: ? Pain and discomfort near your rectum, especially while sitting. ? Secor-colored urine due to small amounts of blood in your urine. ? A burning feeling while urinating. ? Blood in your stool (feces) or bleeding from your rectum. ? Blood in your semen. Follow these instructions at home: Medicines ? Take bwsh-yru-hrabjxf and prescription medicines only as told by your health care provider. ? If you were given a sedative during your procedure, it can affect you for several hours. Do not drive or operate machinery until your health care provider says that it is safe. ? If you were prescribed an antibiotic medicine, take it as told by your health care provider. Do not stop using the antibiotic even if you start to feel better. Activity ? Return to your normal activities as told by your health care provider. Ask your health care provider what activities are safe for you. ? Ask your health care provider when it is okay for you to resume sexual activity. ? You may have to avoid lifting. Ask your health care provider how much you can safely lift. General instructions ? Drink enough fluid to keep your urine pale yellow. ? Watch your urine, stool, and semen for new or increased bleeding. ? Keep all follow-up visits. This is important. Contact a health care provider if: ? You have any of the following: ? Blood clots in your urine or stool. ? Blood in your urine more than 2 weeks after the procedure. ? Blood in your semen more than 2 months after the procedure. ? New or increased bleeding in your urine, stool, or semen. ? Severe pain in your abdomen. ? Your urine smells bad or unusual. ? You have trouble urinating. ? Your lower abdomen feels firm. ? You have problems getting an erection. ? You have nausea or you vomit. Get help right away if: ? You have a fever or chills. This could be a sign of infection. ? You have bright red urine. ? You have severe pain that does not get better with medicine. ? You cannot urinate. Summary ? After this procedure, it is common to have pain and discomfort around your rectum, especially while sitting. ? You may have blood in your urine and stool after the procedure. ? It is common to have blood in your semen after this procedure. ? Get help right away if you have a fever or chills. This could be a sign of infection. This information is not intended to replace advice given to you by your health care provider. Make sure you discuss any questions you have with your health care provider. Document Revised: 11/16/2021 Document Reviewed: 11/16/2021 [employer] Patient Education ? 2022 [employer] Transrectal Ultrasound-Guided Prostate Biopsy A transrectal ultrasound-guided prostate biopsy is a procedure to remove samples of prostate tissue for testing. The prostate is a walnut-sized gland that is located below the bladder and in front of the rectum. During this procedure, a small device (probe) is lubricated and put inside the rectum. The probe sends out sound waves that make a picture of the prostate and surrounding tissues (transrectal ultrasound). The images are used to help guide the process of removing the samples. The samples are taken to a lab to be checked for prostate cancer. This procedure is usually done to evaluate the prostate gland of men who have raised (elevated) levels of prostate-specific antigen (PSA), which can be a sign of prostate cancer or prostate enlargement related to aging (benign prostatic hyperplasia, or BPH). Tell a health care provider about: ? Any allergies you have. ? All medicines you are taking, including vitamins, herbs, eye drops, creams, and gzyp-phc-vvmzwww medicines. ? Any problems you or family members have had with anesthetic medicines. ? Any bleeding problems you have. ? Any surgeries you have had. ? Any medical conditions you have. ? Any prostate infections you have had. What are the risks? Generally, this is a safe procedure. However, problems may occur, including: ? Prostate infection. ? Bleeding from the rectum. ? Blood in the urine. ? Allergic reactions to medicines. ? Damage to surrounding structures such as blood vessels, organs, or muscles. ? Difficulty passing urine. ? Nerve damage. This is usually temporary. What happens before the procedure? Medicines Ask your health care provider about: ? Changing or stopping your regular medicines. This is especially important if you are taking diabetes medicines or blood thinners. ? Taking medicines such as aspirin (more content not included)... [facility] Urology Office/Clinic Noteon 07-27-2023 Urology Office/Clinic Note Chief Complaint Review MRI of prostate done 07/21/23 HPI Staff Pt is here today to review results of MRI of prostate done 07/21/23. Previous DX: BPH with urinary obstruction, elevated PSA, hematuria, kidney stone, recurrent UTI, right flank pain, urinary retention. Pt unable to give urine sample today. PVR today 670ml. Dysuria: denies pain and burning Incomplete bladder emptying: yes Hematuria: denies visible blood Frequency: CIC 3x a day Urgency: denies Nocturia: denies Stream: denies Leaking: denies Post void dripping: denies Wearing pads/ Depends: denies Urge incontinence: denies Stress incontinence: denies Incontinence without Sensory Awareness: denies Abdominal pain: denies Flank pain: denies Sexual complaints: _ History of Present Illness staff HPI reviewed and agree. Tests Reviewed: Reviewed MRI. Review of Systems PHQ Score Initial Depression Screen Score: 0 SCORE no fever, chills, malaise, myalgia. no rash/lesions. no chest pain, palpitations, or SOB. no abdominal pain, nausea, vomiting. no unilateral calf swelling, redness, pain Physical Exam Vitals & Measurements HR: 84(Peripheral) BP: 132/76 HT: 69 in HT: 174.5 cm WT: 102.3 kg WT: 225.06 lb BMI: 33.6 General: nontoxic, NAD Mouth: moist mucosa Lungs: normal respiratory effort Cardio: regular rate, good distal perfusion Abdomen: nondistended, no suprapubic distention or tenderness, no CVA tenderness Neurologic: Grossly normal Skin: No rashes or suspicious lesions Assessment/Plan Pt here with a family member today. 1. Elevated PSA (R97.20: Elevated prostate specific antigen [PSA]) PSA: 06/22/11 - 0.41 11/09/18 - 0.41 01/10/20 - 0.36 02/03/21 - 0.44 07/13/22 - 0.43 04/04/23 - 6.1 MRI of prostate 07/21/23 [facility] [place] A focal area involving the anterior aspect of the R peripheral zone at the level of the mid gland measuring 5 x 4 mm. No gross or subcapsular extension is seen. PI-RADS 4. Reviewed MRI with pt. Explained MRI guided fusion prostate bx in detail. Thoroughly explained the current screening tools do not definitively indicate current presence of prostate ca. Will schedule MRI fusion guided TRUS of prostate with biopsy with Dr. Tao. The procedural risks, benefits, details, and treatment alternatives have been discussed with the patient. These include minimal to severe bleeding, infection, blood in the semen, inability to urinate, and severe infection requiring hospitalization and IV antibiotics, among others. Full informed consent has been obtained. Will order Mac anesthesia. 2. BPH with urinary obstruction (N40.1: Benign prostatic hyperplasia with lower urinary tract symptoms) MRI of prostate 07/21/23 [facility] [place] Prostate volume 26 cc. Grossly distended urinary bladder with partially visualized bilateral hydroureter. TALAMANTES is suspected and rosa cath should be contemplated. IPSS 22 (14). Discussed TALAMANTES procedure workup including cysto and uros pending prostate cancer workup neg. -Will wait on TALAMANTES workup pending prostate bx above. cancel current cysto/uros scheduled for 08/07 as we will not have enough time btwn now and then to perform fusion bx and review results w pt. pt understands if path +prostate ca, prostatectomy may be recommended which would then negate the need for TALAMANTES eval. if path negative for ca, then will need to r/s the cysto/uros and make tx plan. pt is eager to stop CIC rebecca. 3. Urinary retention (R33.9: Retention of urine, unspecified) 06/04/23 - H ER due to chills and dizziness after dealing with a UTI for a few weeks. Found to have distended bladder with >1600mL. Had catheter placed with 2L output. Started on Tamsulosin 0.4 mg qd. Also given Cipro [address] AP wo con - Catheter in place. Unremarkable prostate and seminal vesicles. Punctate R renal stone. Modest bilateral hydroureteronephrosis through UVJs. 06/28/23 - Rosa removed/void trial 06/22/23 - Nurse visit, PVR 977, pt refused cath. 06/23/23 - Taught CIC. 07/01/23 - Per message, avg residuals 40 oz, was told to increase CIC to BID. 07/12/23 - Per message, pt cathing BID, residuals 20 cc. recommended increasing to TID, UACS, BUN/CR, and stat ASTRID ordered. 07/14/23 - BUN 16. Crea 1.27. eGFR >50. UCx light growth of mixed skin nithya. ASTRID - Dilation of the distal ureters possibly related to bladder distension. Bladder wall thickening and large bladder volume, consider TALAMANTES. 07/15/23 - Per test results, pt to CIC q4-6hr until total urine output is <500 cc each time he caths. Pt unable to provide urine sample today. Random scan 670 cc. Pt cont CIC TID, greatest residuals in the morning and the evening but only about 6-8 oz with the midday cath. -Shift second cath later in the day. Follow-up With When Contact Information MINDI CHRISTIAN, RAMANDEEP Green, URL [address] [place] [address] Additional Instructions: schedule MRI fusion guided TRUS of prostate with biopsy with Dr. Tao Patient Education Transrectal Ultrasound-Guided Pros (more content not included)... Normal [facility] Comment on above: Result Comment: Elec tronically Signed By: RAMANDEEP PORTER PA-C\.br\Date and Time Signed: 07/27/23 16:34 EST\.br\Electronically Co-Signed By: Kinjal Eduardo\.br\Date and Time Co-Signed: 07/27/23 11:56 EST Family Medicine Office/Clini c Noteon 07-26-2023 Family Medicine Office/Clinic Note HPI Staff Alicja is a 68 year old male presenting for 6 month follow up ( this was f/u from Jan 2023 visit) and pt has been in multiple times since then for medical issues. Needs his paperwork for his diabetic shoes and mail to [employer] Do you have any of the following symptoms? Foot Exam: due Eye Exam: due Last A1C: Hgb A1C %: 9.6 % High (05/16/23 08:05:00) Statin: atorvastatin 40mg Patient is here for follow up on hypertension. How often are you checking your blood pressure? Doesnt check BP at home What are your average readings? N/A, Not checking at home Yearly BMP: 06/28/23 flu: UTD 03/16/23 questions/concerns: needs his omeprazole, metformin and lisinopril [facility] to [facility] History of Present Illness - Here for follow up. - BS are still running high. - Discussed the possible need for insulin. Review of Systems PHQ Score Initial Depression Screen Score: 0 SCORE Physical Exam Vitals & Measurements T: 36.3 ?C(Temporal Artery) HR: 76(Peripheral) RR: 16 BP: 150/86 SpO2: 98% HT: 69 in HT: 174 cm WT: 104.8 kg WT: 230.56 lb BMI: 34.61 General: alert, no acute distress ENMT: oral mucosa moist, Cardiovascular: regular rate and rhythm, normal peripheral perfusion Respiratory: Lungs CTA, respirations non labored Extremities: no deformity, no trauma Neurological: oriented x 4, LOC appropriate for age, CN II-XII intact, motor strength equal & normal bilaterally, speech normal Abdomen: Soft, Nontender, Non-distended, + BS Diabetic Foot Exam Decreased Monofilament Sensation Foot: Left - Abnormal, Right - Abnormal Bunions/Foot Deformity: Left - Abnormal, Right - Abnormal Abnormal Pulse Foot: Left - Normal, Right - Normal Skin Lesions Foot: Left - Normal, Right - Normal Foot Exam Result: Abnormal foot exam Foot Exam Findings: Flat footed without sensation Assessment/Plan 1. Type 2 diabetes mellitus with hypercholesterolemia (E11.69: Type 2 diabetes mellitus with other specified complication) - Not at goal. - Will recheck to see if med adjustments have helped. - Then we will discuss meds. Ordered: Body Mass Index (BMI) documented 3008F Current smokeless tobacco user 1035F Depression Screening Negative 3352F Influenza immunization administered or previously received 4274F Medicare Subsequent Visit G0439 Most recent diastolic blood pressure 80-89 mm Hg 3079F Most recent systolic blood pressure >= 140 mm Hg 3077F Patient screen for fall risk: no falls in last year or 1 fall with no injury in last year 1101F 2. Primary hypertension (I10: Essential (primary) hypertension) - Elevated - Have increased meds. Ordered: Body Mass Index (BMI) documented 3008F Current smokeless tobacco user 1035F Depression Screening Negative 3352F Influenza immunization administered or previously received 4274F Medicare Subsequent Visit G0439 Most recent diastolic blood pressure 80-89 mm Hg 3079F Most recent systolic blood pressure >= 140 mm Hg 3077F Patient screen for fall risk: no falls in last year or 1 fall with no injury in last year 1101F 3. Major depressive disorder, recurrent, moderate (F33.1: Major depressive disorder, recurrent, moderate) - Stable Ordered: Body Mass Index (BMI) documented 3008F Current smokeless tobacco user 1035F Depression Screening Negative 3352F Influenza immunization administered or previously received 4274F Medicare Subsequent Visit G0439 Most recent diastolic blood pressure 80-89 mm Hg 3079F Most recent systolic blood pressure >= 140 mm Hg 3077F Patient screen for fall risk: no falls in last year or 1 fall with no injury in last year 1101F 4. Gastroesophageal reflux disease without esophagitis (K21.9: Gastro-esophageal reflux disease without esophagitis) - Refilled PPI. - Follow up PRN Ordered: Body Mass Index (BMI) documented 3008F Current smokeless tobacco user 1035F Depression Screening Negative 3352F Influenza immunization administered or previously received 4274F Most recent diastolic blood pressure 80-89 mm Hg 3079F Most recent systolic blood pressure >= 140 mm Hg 3077F Patient screen for fall risk: no falls in last year or 1 fall with no injury in last year 1101F 5. BMI 34.0-34.9,adult (Z68.34: Body mass index [BMI] 34.0-34.9, adult) - BMI education given Ordered: Body Mass Index (BMI) documented 3008F Current smokeless tobacco user 1035F Depression Screening Negative 3352F Influenza immunization administered or previously received 4274F Medicare Subsequent Visit G0439 Most recent diastolic blood pressure 80-89 mm Hg 3079F Most recent systolic blood pressure >= 140 mm Hg 3077F Patient screen for fall risk: no falls in last year or 1 fall with no injury in last year 1101F 6. Class 1 obesity due to excess calories in adult (E66.09: Other obesity due to excess calories) - Diet and exercise advised Ordered: Body Mass Index (BMI) documented 3008F Current smokeless tobacco user 1035F Depression Scree (more content not included)... Normal [facility] Comment on above: Result Comment: Elec tronically Signed By: Ruiz REYNOLDS, Jose Thompson\.br\Date and Time Signed: 07/26/23 10:58 EST Patient Educationon 07-26-19 Patient Education Nutrition BMI for Adults What [...] numbers. This can be done either in [place] or metric measurements. Note that charts and online BMI calculators are available to help you find your BMI quickly and easily without having to do these calculations yourself. To calculate your BMI in [place] measurements: 1. Measure your weight in [...] for Disease Control and Prevention: www.cdc.gov ? [place] [employer]: www.heart.org ? National Heart, Lung, and Blood [place]: www.nhlbi.nih.gov Summary ? Body mass index (BMI) is a number that is calculated from a person's weight and height. ? BMI may help estimate how much of a person's weight is composed of fat. BMI can help identify those who may be at higher risk for certain medical problems. ? BMI can be measured using Turkmen measurements or metric measurements. ? BMI charts are used to identify whether you are underweight, normal weight, overweight, or obese. This information is not intended to replace advice given to you by your health care provider. Make sure you discuss any questions you have with your health care provider. Document Revised: 02/13/2020 Document Reviewed: 12/21/2019 [employer] Patient Education ? 2022 [employer]. [facility] Screenson 07-26-2023 Screens [id number] .00TIFF [facility] Ambulatory Visit Summaryon 0 07-25-2023 Ambulatory Visit Summary ALICJA REYES :1955 Visit Date:07/25/2023 Ambulatory Visit Instructions Your Diagnosis Annual visit for general adult medical examination with abnormal findings Encounter for screening for other disorder Screening declined by patient BPH with urinary obstruction Major depressive disorder, recurrent, moderate Primary hypertension Recurrent UTI Type 2 diabetes mellitus with hypercholesterolemia BMI 34.0-34.9,adult Class 1 obesity due to excess calories in adult Your Care Team Attending Physician - Jose Grace MD. Primary Care Physician - Jose Grace MD. This Is Your Medications List Misc Prescription (Misc DME Prescription) Misc Prescription (Misc DME Prescription) Misc Prescription (Misc DME Prescription) Misc Prescription (Misc DME Prescription) aspirin (aspirin 81 mg Oral EC Tab) atorvastatin (atorvastatin 40 mg Tab) ciprofloxacin (Cipro 500 mg Tab) glipiZIDE (glipiZIDE 5 mg Tab) hydrochlorothiazide-l isinopril (hydrochlorothiazide- lisinopril 12.5 mg-20 mg Tab) magnesium oxide (magnesium oxide 400 mg Tab) metformin (Glucophage XR 500 mg Tab-ER) omeprazole (omeprazole 40 mg Cap-DR) ondansetron (Zofran ODT 4 mg Tab-Dis) potassium chloride (potassium chloride 10 mEq Cap-ER) tamsulosin (tamsulosin 0.4 mg Cap) Procedures Performed Arthroscopy, back surgery, Carpal tunnel release, hand and elbow surgery, Hand tendon repaired, Spinal fusion. Discharge Vitals Heart Rate (Peripheral) 90 Blood Pressure 168/100 Height 69 in Height 174 cm Weight 229.24 lb Weight 104.2 kg BMI 34.42 What to do next Scheduled Follow-Up Appointments Tuesday 10:15 AM EST With: Ruiz REYNOLDS, Jose Thompson Where: [facility] Invalid Interpretation Code [address] [place] [address]- \.br\ Tuesday 11:45 AM EDT \.br\ With: Yfn REYNOLDS, Troy Santamaria\.br\ Where: [facility] [place]\.br\ Tuesday 8:00 AM EST \.br\ With:\.br\ Where: [facility] Patient Education 07-25-19 Patient Education Cardiovascular Hypertension, Adult High blood [...] oz glass (more content not included)... Normal [facility] RAD - MRI Reporton 4 RAD - MRI Report [id number] .00TIFF Normal [facility] RAD - MRI Reporton 4 RAD - MRI Report [id number] .00TIFF Normal [facility] Creatinine (Bld) [Mass/Vol]O rdered By: Ramandeep Porter on 07-21-2023 Creatinine [Mass/Vol] 1.2 mg/dL 0.6-1.3 [facility] Comment on above: ER/ESD physician is notified/shown all ISTAT results.Critical values may be confirmed by laboratory testing ifdeemed necessary by ER attending doctor. ISTAT XRay CREon 07-21-2023 Creatinine [Mass/Vol] 1.2 mg/dL Normal 0.6-1.3 [facility] Comment on above: Result Comment: ER/E SD physician is notified/shown all ISTAT results. Critical values may be confirmed by laboratory testing if deemed necessary by ER attending doctor. Performed By: #### I SCRE #### [address] ISTAT GFR > 60.0 Normal [facility] Comment on above: Result Comment: PERF ORMED BY: [place] [address] PATHOLOGIST NET APPLICATION ARCHITECT ELVI MCNULTY M.D. Performed By: #### I SCRE #### [facility] [address] [place] [address] MR prostate wo/w conon 07-21 MR prostate wo/w con [facility] [address] [place] [address] MRI Report Signed Patient: Alicja Reyes MR#: [id number] : 1955 Acct:[id number] Age/Sex: 68 / M ADM Date: 07/21/23 Loc: Room: Type: [facility] Attending Dr: Ramandeep Porter PA-C Copies to: Ramandeep Porter PA-C Ordering Provider: Ramandeep Porter PA-C Date of Service: 07/21/23 MR/MR prostate wo/w con: R97.20 EXAMINATION: MR prostate wo/w con HISTORY: Frequent UTIs. COMPARISON: NONE TECHNIQUE: Multiparametric imaging of the prostate gland was performed with IV contrast. FINDINGS: Prostate Dimensions: 4.5 x 3.2 x 3.5cm. Prostate Volume: 26 mL Peripheral Zone: Heterogenous inT2 signal suggestive of prior prostatitis. A focal area of T2 hypointensity is identified involving the anterior aspect of the right peripheral zone at the level of the mid gland measuring 5 x 4 mm with associated restricted diffusion and low ADC value. No gross or subcapsular extension is seen. Please see series 5 image 17, series 7 and 50 image 15 and series 700 image 15. Central/Transitional Zone: BPH changes. Seminal Vesicles: Unremarkable Neurovascular bundles: Unremarkable. Lymphadenopathy: No evidence of lymphadenopathy. Bladder: Grossly distended with partially visualized bilateral hydroureter Bowel: The visualized bowel is without acute abnormality. Peritoneal Cavity: No free fluid. Bones: No suspicious bony lesion. MR/MR prostate wo/w con IMPRESSION: A focal area of T2 hypointensity is identified involving the anterior aspect of the right peripheral zone at the level of the mid gland measuring 5 x 4 mm with associated restricted diffusion and low ADC value. No gross or subcapsular extension is seen. Please see series 5 image 17, series 7 and 50 image 15 and series 700 image 15. PI-RADS 4. Targeting of this area on biopsy is recommended. Grossly distended urinary bladder with partially visualized bilateral hydroureter. Bladder outlet obstruction is suspected and Rosa catheterization should be contemplated. Impression dictated by: Ghanshyam Schultz Jr., RosalioOMalgorzata07/21/2023 1:08 PM Dictation Location: [place] [address] Transcribed By: [facility] 07/21/23 1308 Dictated By: Ghanshyam Schultz Jr, DO 07/21/23 1304 Signed By: 07/21/23 1308 Normal [facility] No Panel InformationOrdered By: Ramandeep Porter on 07-21-2023 Bedside Estimated GFR (eGFR) > 60.0 [facility] Physician Referralon 024 Physician Referral [id number] .00TIFF Normal [facility] Lab Reportson 07-18-2023 Lab Reports [id number] .00TIFF Normal [facility] Physician Orderon 07-18-2023 Physician Order [id number]# 1.00TIFF Normal [facility] Heart and Vascular Office/Cl inic Noteon 07-16-2023 Heart and Vascular Office/Clinic Note Chief Complaint here to establish care History of Present Illness Alicja Reyes is a 68-year-old male who presents today for an evaluation for dizziness, and tachycardia. He has had a UTI but is already resolved. He has been experiencing dizziness and nausea for 2 months. He occasionally has dyspnea when he lets his dog out while going down 3 steps. He has done self-catheterization 2 times to drain his urine. He previous doctor mentioned that he had a skipped heartbeat years ago. His has tachycardia. He is scheduled for an echocardiogram on 08/02/2023. Dr. Grace did not order him a stress test. He was in the hospital a couple of weeks ago and wore a heart monitor for the night. He can walk on a treadmill. Review of Systems Constitutional: no fever, no sweats, no weakness Skin: no rash, no lesions, no bruising/petechiae ENMT: no sore throat, no congestion, no hoarseness Respiratory: positive for shortness of breath, no cough, no orthopnea, no wheezing Cardiovascular: no chest pain, no palpitations, no edema Gastrointestinal: positive for nausea, no vomiting, no diarrhea, no GI bleeding Genitourinary: no anuria/oliguria no hematuria Musculoskeletal: no back pain, no trauma Neurologic: no headache, positive for dizziness, no numbness, no weakness Psychiatric: no sleeping problems, no irritability, no anxiety/depression. Heme/Lymph: no bleeding tendency, no bruising tendency Allergy/Immunologic: no recurrent infections, no impaired immunity Additional ROS info: Except as noted in the above Review of Systems and in the History of Present Illness all other systems have been reviewed and are negative or noncontributory Physical Exam Vitals & Measurements HR: 99(Peripheral) BP: 142/88 SpO2: 98% HT: 69 in HT: 175 cm WT: 102.6 kg WT: 225.72 lb BMI: 33.5 General: alert, no acute distress Skin: warm, dry intact Head: atraumatic, normocephalic Neck: trachea midline, no JVD, no bruit Eye: normal conjunctiva, sclera clear ENMT: oral mucosa moist Cardiovascular: regular rate and rhythm, no murmur, normal peripheral perfusion Respiratory: lungs CTA, respirations non labored Chest wall: no deformity. Gastrointestinal: soft, non-distended, no tenderness, no guarding. Back: no tenderness, normal ROM, normal alignment. Extremities: no edema, no deformity, no trauma Neurological: oriented x 4, LOC appropriate for age, sensation equal & normal bilaterally, speech normal Psychiatric: cooperative, affect appropriate for age, normal judgement, normal psychiatric thoughts. Assessment/Plan 1. Tachycardia (R00.0: Tachycardia, unspecified) Alicja Reyes is a 68-year-old male with diabetes, hypertension, hyperlipidemia, abnormal EKG, tachycardia, and shortness of breath. We will get a transthoracic echocardiogram, NUC med stress test, treadmill, and a 48-hour Holter monitor. Ordered: Holter Monitor 48 hr 2. Obese (E66.9: Obesity, unspecified) Diet and exercise as tolerated is recommended to promote weight loss and improve cardiovascular wellness. Follow up in 6 weeks in [place] office. Portions of this record may have been created with voice recognition artificial intelligence software, specifically [employer], [employer] and or [employer]. Substitutions may have occurred due to the inherent limitations of voice recognition and artificial intelligence software. ATTESTATION: Documentation services were performed after patient or guardian consented to allow [employer] to record this visit. SAMANTHA triage specialist and provider reviewed before signing. SAMANTHA: Phoebe Lilliana Oseo. Follow-up No qualifying data available Problem List/Past Medical History Ongoing Alcohol abuse, in remission BPH with urinary obstruction Diabetic nephropathy associated with type 2 diabetes mellitus Dizziness Edema Elevated PSA Fatigue Gastroesophageal reflux disease without esophagitis Hematuria Hypercholesterolemia Hypokalemia Incomplete bladder emptying Kidney stone Major depressive disorder, recurrent, moderate Murmur Primary hypertension Prostate cancer screening Recurrent UTI Right flank pain SOB (shortness of breath) on exertion Tachycardia Type 2 diabetes mellitus with hypercholesterolemia Urinary retention Historical No qualifying data Procedure/Surgical History Arthroscopy, back surgery, Carpal tunnel release, hand and elbow surgery, Hand tendon repaired. Medications aspirin 81 mg Oral EC Tab, [...] mg= 2 tab(s), Oral, BID, 1 refills hydrochlorothiazide-l isinopril 12.5 mg-20 mg Tab, 1 tab(s), Oral, Daily, 3 refills magnesium oxide 400 mg Tab, 400 mg (more content not included)... [facility] Comment on above: Result Comment: Elec tronically Signed By: Yfn REYNOLDS, Troy Santamaria\.br\Date and Time Signed: 07/16/23 14:08 EST\.br\Electronically Co-Signed By: Darling Keen\.br\Date and Time Co-Signed: 07/15/23 16:22 EST Lab Reportson 07-15-2023 Lab Reports [id number] .00TIFF [facility] RAD - Ultrasound Reporton RAD - Ultrasound Report [id number] .00TIFF [facility] RAD - Ultrasound Report [id number] .00TIFF [facility] Ambulatory Visit Summaryon 0 07-14-2023 Ambulatory Visit Summary ALICJA REYES Bharathi :1955 Visit Date:07/14/2023 Ambulatory Visit Instructions Your Diagnosis Major depressive disorder, recurrent, moderate Hypokalemia BMI 33.0-33.9,adult Class 1 obesity due to excess calories in adult Smokeless tobacco use Type 2 diabetes mellitus with hypercholesterolemia Murmur Tachycardia Pure hypercholesterolemia, unspecified Your Care Team Attending Physician - Jose Grace MD Primary Care Physician - Jose Grace MD This Is Your Medications List Misc Prescription (Misc DME Prescription) Misc Prescription (Misc DME Prescription) Misc Prescription (Misc DME Prescription) Misc Prescription (Misc DME Prescription) aspirin (aspirin 81 mg Oral EC Tab) atorvastatin (atorvastatin 40 mg Tab) ciprofloxacin (Cipro 500 mg Tab) glipiZIDE (glipiZIDE 5 mg Tab) hydrochlorothiazide-l isinopril (hydrochlorothiazide- lisinopril 12.5 mg-20 mg Tab) magnesium oxide (magnesium oxide 400 mg Tab) metformin (Glucophage XR 500 mg Tab-ER) omeprazole (omeprazole 40 mg Cap-DR) ondansetron (Zofran ODT 4 mg Tab-Dis) potassium chloride (potassium chloride 10 mEq Cap-ER) tamsulosin (tamsulosin 0.4 mg Cap) Procedures Performed Arthroscopy, back surgery, Carpal tunnel release, hand and elbow surgery, Hand tendon repaired. Discharge Vitals Temperature (Oral) 36.7 ?C Heart Rate (Peripheral) 114 Respiratory Rate 16 Blood Pressure 130/66 Height 175.4 cm Height 69 in Weight 102.4 kg Weight 225.28 lb BMI 33.28 What to do next Scheduled Follow-Up Appointments Tuesday 2:00 PM EST With: Yfn REYNOLDS, Troy Santamaria Where: [facility] [place] Tuesday 2:00 PM EST With: Where: [facility] [place] Invalid Interpretation Code [address] [place] [address]- \.br\ Tuesday 2:00 PM EST \.br\ With:\.br\ Where: [facility]\.br\ Tuesday 3:00 PM EST \.br\ With:\.br\ Where: [facility]\.br\ You Need to Complete the Following\.br\ CBC w/ Auto Diff, Blood, Routine collect, 07/14/23, Order for future visit, Lab Collect, Major depressive disorder, recurrent, moderate [facility] Population Healthon 07-12-19 Population Health Case Information Case Priority: None [...] mg= 2 tab(s), Oral, BID, 1 refills hydrochlorothiazide-l isinopril 12.5 mg-20 mg Tab, 1 tab(s), Oral, [...] days ago. Notes his urine has become cashier gambling in color, however no improvement to nausea [...] (min): 7 Outcome: Case discussion Contact Type: complaint coordinator Contact Name: Alicja Castellon Notes: TCM#4- spoke with pt for tcm, see ft summary note. Created By: Alicja Castellon Date: July 05, 2023 Method: Phone call Type: Outbound Duration (min): 5 Outcome: Case discussion Contact Type: complaint coordinator Contact Name: Alicja Castellon Notes: TCM#3-mSpoke with patient for tcm, see ft summary note. Created By: Alicja Castellon Date: June 23, 2023 Method: Phone call Type: Outbound Duration (min): 2 Outcome: Case discussion Contact Type: complaint coordinator Contact Name: Alicja Castellon Notes: TCM#2- Spoke with patient for tcm, see ft summary note (more content not included)... Normal [facility] CHEMISTRYOrdered By: SYSTEM SYSTEM on 06-28-2023 Anion gap [Moles/Vol] 15 mmol/L Normal 6 - 16 mEq/L R emisol Chem Calcium [Mass/Vol] 8.6 mg/dL Low 8.9 - 11.1 mg/dL Remisol Chem Chloride [Moles/Vol] 100 mmol/L Low 101 - 111 mmol/ L Remisol Chem CO2 [Moles/Vol] 28 mmol/L Normal 21 - 31 mmol/L Remis ol Chem Creatinine [Mass/Vol] 1.3 mg/dL Normal 0.5 - 1.3 mg/d L Remisol Chem eGFR 59 mL/min/1.73 m2 Normal >=59mL/min /1.73 m2 Remisol Chem Glucose [Mass/Vol] 284 mg/dL High 55 - 199 mg/dL Re misol Chem Potassium [Moles/Vol] 4.1 mmol/L Normal 3.5 - 5.3 mmol /L Remisol Chem Sodium [Moles/Vol] 139 mmol/L Normal 135 - 145 mmol/L Remisol Chem Urea nitrogen [Mass/Vol] 11 mg/dL Normal 5 - 21 mg/dL Remisol Chem Urea nitrogen/Creatinine [Mass ratio] 8 mg/mg Low 10 - 20 Remisol Chem CHEMISTRYOrdered By: SYSTEM SYSTEM on 06-13-2023 Anion gap [Moles/Vol] 15 mmol/L Normal 6 - 16 mEq/L R emisol Chem Calcium [Mass/Vol] 7.0 mg/dL Invalid Interpretation Code 8.9 - 11.1 mg/dL Remisol Chem Comment on above: Result Comment: Crit ical Result Verified by Repeat Analysis Critical Result S_CA.0 Called to and read back by: X RAY INSPECTOR ELI at: 06/13/2023 18:59:55 by:ELI LAWSON Chloride [Moles/Vol] 100 mmol/L Low 101 - 111 mmol/ L Remisol Chem CO2 [Moles/Vol] 27 mmol/L Normal 21 - 31 mmol/L Remis ol Chem Creatinine [Mass/Vol] 1.3 mg/dL Normal 0.5 - 1.3 mg/d L Remisol Chem eGFR 59 mL/min/1.73 m2 Normal >=59mL/min /1.73 m2 Remisol Chem Glucose [Mass/Vol] 219 mg/dL High 55 - 199 mg/dL Re misol Chem Potassium [Moles/Vol] 2.7 mmol/L Invalid Interpretation Code 3.5 - 5.3 mmol/L Remisol Chem Comment on above: Result Comment: Crit ical Result Verified by Repeat Analysis Critical Result S_K:2.7 Called to and read back by: X RAY INSPECTOR ELI at: 06/13/2023 18:59:55 by:ELI JAIMEEUR Sodium [Moles/Vol] 139 mmol/L Normal 135 - 145 mmol/L Remisol Chem Urea nitrogen [Mass/Vol] 16 mg/dL Normal 5 - 21 mg/dL Remisol Chem Urea nitrogen/Creatinine [Mass ratio] 12 mg/mg Normal 10 - 20 Remisol Chem CHEMISTRYOrdered By: SYSTEM SYSTEM on 05-27-2023 Anion gap [Moles/Vol] 13 mmol/L Normal 6 - 16 mEq/L R emisol Chem Calcium [Mass/Vol] 8.6 mg/dL Low 8.9 - 11.1 mg/dL Remisol Chem Chloride [Moles/Vol] 97 mmol/L Low 101 - 111 mmol/ L [facility] CO2 [Moles/Vol] 33 mmol/L High 21 - 31 mmol/L Remis ol Chem Creatinine [Mass/Vol] 1.5 mg/dL High 0.5 - 1.3 mg/d L [facility] Chem eGFR 50 mL/min/1.73 m2 Low >=59mL/min /1.73 m2 [facility] Chem Glucose [Mass/Vol] 201 mg/dL High 55 - 199 mg/dL Re misol Chem Potassium [Moles/Vol] 3.3 mmol/L Low 3.5 - 5.3 mmol /L [facility] Sodium [Moles/Vol] 140 mmol/L Normal 135 - 145 mmol/L [facility] Urea nitrogen [Mass/Vol] 25 mg/dL High 5 - 21 mg/dL [facility] Urea nitrogen/Creatinine [Mass ratio] 17 mg/mg Normal 10 - 20 [facility] CHEMISTRYOrdered By: SYSTEM SYSTEM on 05-16-2023 Albumin [...] 16 mmol/L Normal 6 - 16 mEq/L [facility] AST [Catalytic activity/Vol] 19 [iU]/d Normal 5 - 43 Int._Unit/L [facility] Bilirubin [Mass/Vol] 1.1 mg/dL Normal 0.0 - 1.1 mg/dL [facility] Calcium [Mass/Vol] 8.6 mg/dL Low 8.9 - 11.1 mg/dL [facility]isol Chloride [Moles/Vol] 94 mmol/L Low 101 - 111 mmol/ L [facility] Remisol CO2 [Moles/Vol] 31 mmol/L Normal 21 - 31 mmol/L [facility] Creatinine [Mass/Vol] 1.3 mg/dL Normal 0.5 - 1.3 mg/d L [facility] Remisol GFR/1.73 sq M.predicted among non-blacks MDRD (S/P/Bld) [Vol rate/Area] 59 mL/min/1.73 m2 Normal >=59mL/min/1.[address] [facility] Comment on above: Interpretive Data: [...] [Moles/Vol] 2.9 mmol/L Low 3.5 - 5.3 mmol /L [facility] Remisol Protein [Mass/Vol] 7.5 g/dL Normal 6.0 - 7.8 gm/dL [facility] Sodium [Moles/Vol] 138 mmol/L Normal 135 - 145 mmol/L [facility] Urea nitrogen [Mass/Vol] 16 mg/dL Normal 5 - 21 mg/dL [facility] Urea nitrogen/Creatinine [Mass ratio] 12 mg/mg Normal 10 - [facility] CHEMISTRYOrdered By: Isidro mejia on 05-16-2023 HbA1c (Bld) [Mass fraction] 9.6 % High <=5.9% [facility] ChemAutoSS CHEMISTRYOrdered By: SYSTEM SYSTEM on 04-04-2023 Prostate specific Ag [Mass/Vol] 6.1 ng/mL High 0.1 - 3.5 ng/mL [facility] Comment on above: Interpretive Data: T he concentration of PSA determined by different manufacturers can vary due to differences in assay methods and reagent specificity. Values obtained from different assay methods cannot be used interchangeably. The methodology used for this result was chemiluminescence using [employer]'s Access [employer] PSA reagent. CHEMISTRYOrdered By: SYSTEM SYSTEM on 01-20-2023 Albumin [...] 15 mmol/L Normal 6 - 16 mEq/L [facility] AST [Catalytic activity/Vol] 21 [iU]/d Normal 5 - 43 Int._Unit/L [facility] Bilirubin [Mass/Vol] 0.8 mg/dL Normal 0.0 - 1.1 mg/dL [facility] Calcium [Mass/Vol] 8.6 mg/dL Low 8.9 - 11.1 mg/dL [facility] Chloride [Moles/Vol] 98 mmol/L Low 101 - 111 mmol/ L [facility] Cholesterol [Mass/Vol] 162 mg/dL Normal [...] [Mass/Vol] 1.2 mg/dL Normal 0.5 - 1.3 mg/d L [facility] GFR/1.73 sq M.predicted among non-blacks MDRD (S/P/Bld) [Vol rate/Area] 66 mL/min/1.73 m2 Normal >=59mL/min/1.73 m2 [facility] Chem S Globulin (S) [Mass/Vol] 3.6 g/dL Normal 1.4 - 4.0 gm/dL [facility] Remisol Glucose [Mass/Vol] 314 mg/dL High 55 - 199 mg/dL [facility] Potassium [Moles/Vol] 4.2 mmol/L Normal 3.5 - 5.3 mmol /L [facility] Protein [Mass/Vol] 7.4 g/dL Normal 6.0 - 7.8 gm/dL [facility] Remisol Sodium [Moles/Vol] 136 mmol/L Normal 135 [...] Cr High 0.00 - 200.00 mg/gm Cr [facility] Remisol CHEMISTRYOrdered By: Noe landeros on 01-20-2023 HbA1c (Bld) [Mass fraction] 8.4 % High <=5.9% [facility] ChemAutoSS HEMATOLOGYOrdered By: SYSTEM SYSTEM on 01-20-2023 Basophils/100 WBC (Bld) 0.6 % Normal 0.0 - 2.0 % [facility] HemeAutoSS Basophils/Leukocytes Auto (Bld) [Pure # fraction] 0.0 E9/L Normal 0.0 - 0.2 E9/L [facility]eAutoSS Eosinophils/100 WBC (Bld) 1.8 % Normal 0.0 - 8.0 % [facility]eAutoSS Eosinophils/Leukocyte s Auto (Bld) [Pure # fraction] 0.1 E9/L Normal 0.0 - 0.5 E9/L [facility]eAutoSS Lymphocytes/100 WBC (Bld) 19.3 % Normal 14.0 - 50.0 % [facility]eAutoSS Lymphocytes/Leukocyte s Auto (Bld) [Pure # fraction] 1.1 E9/L Normal 1.0 - 4.0 E9/L [facility]eAutoSS Monocytes/100 WBC (Bld) 13.0 % Normal 4.0 - 14.0 % [facility]eAutoSS Monocytes/Leukocytes Auto (Bld) [Pure # fraction] 0.7 E9/L Normal 0.2 - 1.0 E9/L [facility]eAutoSS Neutrophils/100 WBC (Bld) 65.3 % Normal 36.0 - 75.0 % [facility] HemeAutoSS Neutrophils/Leukocyte s Auto (Bld) [Pure # fraction] 3.6 E9/L [...] [Mass/Vol] 34.9 g/dL Normal 31.4 - 36.0 gm /dL [facility] MCV (RBC) [Entitic vol] 96.4 fL Normal 80.0 - 100.[address] [facility] Platelet mean volume (Bld) [Entitic vol] 7.6 fL Normal 6.4 - 10.[address] [facility] Platelets (Bld) [#/Vol] 284.0 E9/L Normal 150.0 - 500.0 E9/L [facility] RBC (Bld) [#/Vol] 3.8 E12/L Low 4.3 - 5.9 E12/L [facility] HemeAutoSS WBC corrected for nucl RBC Auto (Bld) [#/Vol] 5.5 E9/L Normal 4.0 - 11.0 E9/L [facility] CBC AUTO DIFFon 07-13-2022 BASO # 0.1 103/ul Normal 0.0-0.1 [facility] Comment on above: Performed By: #### C BC #### [facility] [address] [place] [address] Dr. Pilo Jansen Basophils/100 WBC (Bld) 1.0 % Normal 0.2-2.0 [facility] Comment on above: Performed By: #### C BC #### [facility] [address] [place] [address] Dr. Pilo Jansen EO # 0.1 103/ul Normal 0.0-0.7 [facility] Comment on above: Performed By: #### C BC #### [facility] [address] [place] [address] Dr. Pilo Jansen Eosinophils/100 WBC (Bld) 2.1 % Normal 0.9-7.0 [facility] Comment on above: Performed By: #### C BC #### [facility] [address] [place] [address] Dr. Pilo Jansen Erythrocyte distribution width (RBC) [Ratio] 12.0 % Normal 11.0-15.0 [facility] Comment on above: Performed By: #### C BC #### [facility] [address] [place] [address] Dr. Pilo Jansen Hematocrit (Bld) [Volume fraction] 40.7 % Critically low 42.0-54.0 [facility] Comment on above: Performed By: #### C BC #### [facility] [address] [place] [address] Dr. Pilo Jansen Hemoglobin (Bld) [Mass/Vol] 13.4 g/dL Critically low 14.0-18.0 [facility] Comment on above: Performed By: #### C BC #### [facility] [address] [place] [address] Dr. Pilo Jansen IG # 0.02 10e3/ul Normal 0.00-0.03 [facility] Comment on above: Performed By: #### C BC #### [facility] [address] [place] [address] Dr. Pilo Jansen IG % 0.4 % Normal 0.0-0.5 [facility] Comment on above: Performed By: #### C BC #### [facility] [address] [place] [address] Dr. Pilo Jansen LYMPH # 1.4 103/ul Normal 1.2-3.8 [facility] Comment on above: Performed By: #### C BC #### [facility] [address] [place] [address] Dr. Pilo Jansen Lymphocytes/100 WBC (Bld) 26.1 % Normal 20.5-60.0 [facility] Comment on above: Performed By: #### C BC #### [facility] [address] [place] [address] Dr. Pilo Jansen MANUAL DIFF REQ NO Normal [facility] Comment on above: Performed By: #### C BC #### [facility] [address] [place] [address] Dr. Pilo Jansen MCH (RBC) [Entitic mass] 33.2 pg Normal 25.9-34.0 [facility] Comment on above: Performed By: #### C BC #### [facility] [address] [place] [address] Dr. Pilo Jansen MCHC (RBC) [Mass/Vol] 32.9 g/dL Normal 29.9-35.2 [facility] Comment on above: Performed By: #### C BC #### [facility] [address] [place] [address] Dr. Pilo Jansen MCV (RBC) [Entitic vol] 100.7 fL Critically high 80.0-94.0 [facility] Comment on above: Performed By: #### C BC #### [facility] [address] [place] [address] Dr. Pilo Jansen MONO # 0.5 103/ul Normal 0.3-0.8 [facility] Comment on above: Performed By: #### C BC #### [facility] [address] [place] [address] Dr. Pilo Jansen Monocytes/100 WBC (Bld) 9.6 % Normal 1.7-12.0 [facility] Comment on above: Performed By: #### C BC #### [facility] [address] [place] [address] Dr. Pilo Jansen NEUT # 3.2 103/ul Normal 1.4-6.5 [facility] Comment on above: Performed By: #### C BC #### [facility] [address] [place] [address] Dr. Pilo Jansen Neutrophils/100 WBC (Bld) 60.8 % Normal 43.0-75.0 [facility] Comment on above: Performed By: #### C BC #### [facility] [address] [place] [address] Dr. Pilo Jansen Platelet mean volume (Bld) [Entitic vol] 9.3 fL Critically low 9.5-13.5 [facility] Comment on above: Performed By: #### C BC #### [facility] [address] [place] [address] Dr. Pilo Jansen PLT 204 103/ul Normal 150-450 [facility] Comment on above: Performed By: #### C BC #### [facility] [address] [place] [address] Dr. Pilo Jansen RBC 4.04 106/ul Critically low 4.70-6.10 [facility] Comment on above: Performed By: #### C BC #### [facility] [address] [place] [address] Dr. Pilo Jansen WBC 5.2 103/ul Normal 4.0-11.0 [facility] Comment on above: Performed By: #### C BC #### [facility] [address] [place] [address] Dr. Pilo Jansen GLYCOHEMOGLOBIN A1Con 2022 ADA RECOMMENDATION SEE BELOW Normal [facility] Comment on above: Result Comment: ADA RECOMMENDED LIMIT 4.0 - 6.0 ADA THERAPEUTIC TARGET < 7.0 ACTION SUGGESTED > 7.0 Performed By: #### A 1C #### [facility] [address] [place] [address] Dr. Pilo Jansen Glucose [Mass/Vol] 189 mg/dL Normal [facility] Comment on above: Performed By: #### A 1C #### [facility] [address] [place] [address] Dr. Pilo Jansen HbA1c (Bld) [Mass fraction] 8.2 % Critically high 4.5-6.2 [facility] Comment on above: Performed By: #### A 1C #### [facility] [address] [place] [address] Dr. Pilo Jansen LIPID PROFILEon 07-13-2022 CHOL-HDL RATIO NORM SEE BELOW Normal [facility] Comment on above: Result Comment: 3.3 - 4.4 LOW RISK 4.4 - 7.1 AVERAGE RISK 7.1 - 11.0 MODERATE RISK >11.0 HIGH RISK Performed By: #### L IPID, CMP #### [facility] [address] [place] [address] Dr. Pilo Jansen Cholesterol [Mass/Vol] 157 mg/dL Normal <=200 [facility] Comment on above: Performed By: #### L IPID, CMP #### [facility] [address] [place] [address] Dr. Pilo Jansen Cholesterol in HDL [Mass/Vol] 53 mg/dL Normal 40-60 [facility] Comment on above: Performed By: #### L IPID, CMP #### [facility] [address] [address] [address] Pilo Jansen Cholesterol in LDL [Mass/Vol] 81.8 mg/dL Normal [facility] Comment on above: Performed By: #### L IPID, CMP #### [facility] [address] [place] [address] Dr. Pilo Jansen Cholesterol.total/Cho lesterol in HDL [Mass ratio] 3.0 {ratio} Normal [facility] Comment on above: Performed By: #### L IPID, CMP #### [facility] [address] [place] [address] Dr. Pilo Jansen HDL NORMAL > or = 60 mg/dl - LO W CARDIOVASCULAR RISK <40 mg/dl - HIGH CARDIOVASCULAR RISK Normal [facility] Comment on above: Performed By: #### L IPID, CMP #### [facility] [address] [place] [address] Dr. Pilo Jansen LDL CALC NORMAL SEE BELOW Normal [facility] Comment on above: Result Comment: <100 mg/dl OPTIMAL 100 - 129 mg/dl NEAR OR ABOVE OPTIMAL 130 - 159 mg/dl BORDERLINE HIGH 160 - 189 mg/dl HIGH >190 mg/dl VERY HIGH Performed By: #### L IPID, CMP #### [facility] [address] [place] [address] Dr. Pilo Jansen Triglyceride [Mass/Vol] 111 mg/dL Normal <=150 [facility] Comment on above: Performed By: #### L IPID, CMP #### [facility] [address] [place] [address] Dr. Pilo Jansen VLDL CALC 22.2 mg/dL Normal [facility] Comment on above: Performed By: #### L IPID, CMP #### [facility] [address] [place] [address] Dr. Pilo Jansen PROF 14(COMP METB)on 023 Albumin [Mass/Vol] 3.9 g/dL Normal 3.4-5.0 [facility] Comment on above: Performed By: #### L IPID, CMP #### [facility] [address] [address] [address] Pilo Jansen Albumin/Globulin [Mass ratio] 1.1 {ratio} Normal [facility] Comment on above: Performed By: #### L IPID, CMP #### [facility] [address] [address] [address] Pilo Jansen ALP [Catalytic activity/Vol] 81 U/L Normal 46-116 [facility] Comment on above: Performed By: #### L IPID, CMP #### [facility] [address] [address] [address] Pilo Jansen ALT [Catalytic activity/Vol] 28 U/L Normal 16-63 [facility] Comment on above: Performed By: #### L IPID, CMP #### [facility] [address] [address] [address] Pilo Jansen Anion gap [Moles/Vol] 13.6 mmol/L Normal [facility] Comment on above: Performed By: #### L IPID, CMP #### [facility] [address] [address] [address] Pilo Jansen AST [Catalytic activity/Vol] 23 U/L Normal 15-37 [facility] Comment on above: Performed By: #### L IPID, CMP #### [facility] [address] [address] [address] Pilo Jansen Bilirubin [Mass/Vol] 0.8 mg/dL Normal 0.2-1.0 [facility] Comment on above: Performed By: #### L IPID, CMP #### [facility] [address] [address] [address] Pilo Jansen Calcium [Mass/Vol] 9.3 mg/dL Normal 8.5-10.1 [facility] Comment on above: Performed By: #### L IPID, CMP #### [facility] [address] [address] [address] Pilo Jansen Chloride [Moles/Vol] 101 mmol/L Normal 98-107 [facility] Comment on above: Performed By: #### L IPID, CMP #### [facility] [address] [address] [address] Pilo Jansen CO2 [Moles/Vol] 29.7 mmol/L Normal 21.0-32.0 [facility] Comment on above: Performed By: #### L IPID, CMP #### [facility] [address] [address] [address] Pilo Jansen Creatinine [Mass/Vol] 0.86 mg/dL Normal 0.70-1.30 [facility] Comment on above: Performed By: #### L IPID, CMP #### [facility] [address] [address] [address] Pilo Jansen EGFR-AF BURMESE >60 Normal >=60 [facility] Comment on above: Performed By: #### L IPID, CMP #### [facility] [address] [address] [address] Pilo Jansen EGFR-NON AF BURMESE >60 Normal >=60 [facility] Comment on above: Performed By: #### L IPID, CMP #### [facility] [address] [address] [address] Pilo Jansen Globulin (S) [Mass/Vol] 3.7 g/dL Normal [facility] Comment on above: Performed By: #### L IPID, CMP #### [facility] [address] [address] [address] Pilo Jansen Glucose [Mass/Vol] 186 mg/dL Critically high 74-106 [facility] Comment on above: Performed By: #### L IPID, CMP #### [facility] [address] [address] [address] Pilo Jansen Potassium [Moles/Vol] 4.3 mmol/L Normal 3.5-5.1 [facility] Comment on above: Performed By: #### L IPID, CMP #### [facility] [address] [address] [address] Pilo Jansen Protein [Mass/Vol] 7.6 g/dL Normal 6.4-8.2 [facility] Comment on above: Performed By: #### L IPID, CMP #### [facility] [address] [address] [address] Pilo Jansen Sodium [Moles/Vol] 140 mmol/L Normal 136-145 [facility] Comment on above: Performed By: #### L IPID, CMP #### [facility] [address] [address] [address] Pilo Jansen Urea nitrogen [Mass/Vol] 10.0 mg/dL Normal 7.0-18.0 [facility] Comment on above: Performed By: #### L IPID, CMP #### [facility] [address] [address] [address] Pilo Jansen Urea nitrogen/Creatinine [Mass ratio] 11.6 mg/mg Normal [facility] Comment on above: Performed By: #### L IPID, CMP #### [facility] [address] [address] [address] Pilo Jansen Vital Signs Date Time Vital Sign Value Performing Clinician Nicholas mcleod 01-13-2024 08:53-0400 Blood Pressure Location [facility]avier [facility] 01-13-2024 08:53-0400 Diastolic blood pressure 78 mm[Hg] [facility]avier [facility] 01-13-2024 08:53-0400 Heart rate 79 /min [facility] 01-13-2024 08:53-0400 Respiratory rate 18 /min [facility] 01-13-2024 08:53-0400 SaO2% (BldA) [Mass fraction] 99 % [facility] 01-13-2024 08:53-0400 Systolic blood pressure 138 mm[Hg] [facility] 01-10-2024 08:19-0400 Blood Pressure Location Bryant TAO [facility] 01-10-2024 08:19-0400 Diastolic blood pressure 74 mm[Hg] Bryant TAO [facility] 01-10-2024 08:19-0400 Heart rate 94 /min Bryant TAO [facility] 01-10-2024 08:19-0400 Systolic blood pressure 138 mm[Hg] Bryant COOK [facility] 12-30-2023 14:00-0400 Hourly Rounding Artemio Marshall [facility] 12-30-2023 14:00-0400 Promise to Return Artemio Marshall [facility] 12-30-2023 13:00-0400 Hourly Rounding Artemio Marshall [facility] 12-30-2023 13:00-0400 Promise to Return Artemio Marshall [facility] 12-30-2023 12:34-0400 Diastolic blood pressure 100 mm[Hg] Artemio Marshall [facility] 12-30-2023 12:34-0400 Systolic blood pressure 161 mm[Hg] Artemio Marshall [facility] 12-30-2023 12:00-0400 Hourly Rounding Artemio Marshall [facility] 12-30-2023 12:00-0400 Promise to Return Artemio Marshall [facility] 12-30-2023 11:50-0400 Heart rate 104 /min Artemio Marshall [facility] 12-30-2023 11:50-0400 SaO2% (BldA) [Mass fraction] 98 % Artemio Olivares [facility] 12-30-2023 11:45-0400 Body temperature 97.7 [degF] Artemio Roer [facility] 12-30-2023 11:45-0400 Diastolic blood pressure 100 mm[Hg] Artemio Roer [facility] 12-30-2023 11:45-0400 Mean blood pressure 120 mm[Hg] Artemio Roer [facility] 12-30-2023 11:45-0400 Systolic blood pressure 161 mm[Hg] Artemio Olivares [facility] 12-30-2023 08:00-0400 Blood Pressure Location Artemio Olivares [facility] 12-30-2023 08:00-0400 Body temperature 98.6 [degF] Artemio Roer [facility] 12-30-2023 08:00-0400 Diastolic blood pressure 91 mm[Hg] Artemio Olivares [facility] 12-30-2023 08:00-0400 Heart rate 100 /min Artemio Olivares [facility] 12-30-2023 08:00-0400 Systolic blood pressure 173 mm[Hg] Artemio Roer [facility] 12-30-2023 04:00-0400 Heart rate 74 /min Artemio Roer [facility] 12-30-2023 03:39-0400 Heart rate 75 /min Artemio Leroycker [facility] 12-30-2023 03:39-0400 SaO2% (BldA) [Mass fraction] 97 % Artemio Roer [facility] 12-30-2023 03:39-0400 Body temperature 97.52 [degF] Artemio Roer [facility] 12-30-2023 03:39-0400 Mean blood pressure 101 mm[Hg] Artemio Roer [facility] 12-29-2023 21:20-0400 Body temperature 97.16 [degF] Artemio Roer [facility] 12-29-2023 21:18-0400 Mean blood pressure 121 mm[Hg] Artemio Roer [facility] 12-29-2023 20:00-0400 Mean blood pressure 106 mm[Hg] Artemio Roer [facility] 12-29-2023 16:57-0400 Blood Pressure Location Artemio Roer [facility] 12-29-2023 16:57-0400 Body temperature 98.42 [degF] Artemio Roer [facility] 12-29-2023 16:00-0400 Mean blood pressure 118 mm[Hg] Artemio Roer [facility] 12-29-2023 16:00-0400 Respiratory rate 20 /min Artemio Roer [facility] 12-29-2023 15:00-0400 Mean blood pressure 138 mm[Hg] Artemio Roer [facility] 12-29-2023 15:00-0400 Respiratory rate 14 /min Artemio Roer [facility] 12-29-2023 14:07-0400 Respiratory rate 23 /min Artemio Roer [facility] 12-29-2023 13:50-0400 Body temperature 97.88 [degF] Artemio Olivares [facility] 12-29-2023 13:50-0400 Respiratory rate 18 /min Artemio Olivares [facility] 10-19-2023 08:26-0400 Diastolic blood pressure 88 mm[Hg] Jacinto Ramirez [facility] 10-19-2023 08:26-0400 Mean blood pressure 111 mm[Hg] Jacinto James [facility] 10-19-2023 08:26-0400 Systolic blood pressure 158 mm[Hg] Jacinto Ramirez [facility] 10-19-2023 08:12-0400 Blood Pressure Location Jacinto Ramirez [facility] 10-19-2023 08:12-0400 Diastolic blood pressure 84 mm[Hg] Jacinto Ramirez [facility] 10-19-2023 08:12-0400 Heart rate 94 /min Jacinto Ramirez [facility] 10-19-2023 08:12-0400 SaO2% (BldA) [Mass fraction] 98 % Jacinto Ramirez [facility] 10-19-2023 08:12-0400 Systolic blood pressure 168 mm[Hg] Jacinto Ramirez [facility] 09-22-2023 12:35-0400 Blood Pressure Location Bryant TAO [facility] 09-22-2023 12:35-0400 Body temperature 97.16 [degF] Bryant TAO [facility] 09-22-2023 12:35-0400 Diastolic blood pressure 84 mm[Hg] Bryant TAO [facility] 09-22-2023 12:35-0400 Heart rate 84 /min Bryant TAO [facility] 09-22-2023 12:35-0400 Systolic blood pressure 136 mm[Hg] Bryant TAO [facility] 09-09-2023 14:25-0400 Diastolic blood pressure 79 mm[Hg] MD Jose Grace Work Phone: [facility] 09-09-2023 14:25-0400 Heart rate 85 /min MD Jose Grace Work Phone: [facility] 09-09-2023 14:25-0400 Respiratory rate 16 /min MD Jose Grace Work Phone: [facility] 09-09-2023 14:25-0400 SaO2% (BldA) [Mass fraction] 99 % MD Jose Grace Work Phone: [facility] 09-09-2023 14:25-0400 Systolic blood pressure 131 mm[Hg] MD Jose Grace Work Phone: [facility] 09-09-2023 13:40-0400 Inhaled oxygen flow rate 8 L/min MD Jose Grace Work Phone: [facility] 09-09-2023 12:40-0400 Body height 175.26 cm MD Jose Grace Work Phone: [facility] 09-09-2023 12:40-0400 Body mass index (BMI) [Ratio] 34.1 kg/m2 MD Jose Grace Work Phone: [facility] 09-09-2023 12:40-0400 Body weight 104.77 kg MD Jose Grace Work Phone: [facility] 09-09-2023 11:49-0400 Body temperature 98.8 [degF] MD Jose Grace Work Phone: [facility] 09-01-2023 11:42-0400 Diastolic blood pressure 98 mm[Hg] Bryant COOK [facility] 09-01-2023 11:42-0400 Systolic blood pressure 170 mm[Hg] Bryant COOK [facility] 09-01-2023 11:40-0400 Diastolic blood pressure 99 mm[Hg] Bryant COOK [facility] 09-01-2023 11:40-0400 Systolic blood pressure 190 mm[Hg] Bryant COOK [facility] 09-01-2023 11:08-0400 Diastolic blood pressure 102 mm[Hg] Bryant COOK [facility] 09-01-2023 11:08-0400 Systolic blood pressure 178 mm[Hg] Bryant COOK [facility] 09-01-2023 10:50-0400 Heart rate 96 /min Bryant COOK [facility] 09-01-2023 10:23-0400 Blood Pressure Location Bryant COOK [facility] 09-01-2023 10:23-0400 Heart rate 108 /min Bryant COOK [facility] 09-01-2023 10:23-0400 Mean blood pressure 147 mm[Hg] Bryant COOK [facility] 09-01-2023 10:22-0400 Heart rate 108 /min Bryant COOK [facility] 09-01-2023 10:22-0400 SaO2% (BldA) [Mass fraction] 98 % Bryant COOK [facility] 09-01-2023 10:22-0400 Blood Pressure Location Bryant TAO [facility] 09-01-2023 10:22-0400 Mean blood pressure 150 mm[Hg] Bryant TAO [facility] 09-01-2023 10:21-0400 Respiratory rate 20 /min Bryant TAO [facility] 09-01-2023 10:21-0400 Body temperature 97.7 [degF] Bryant TAO [facility] 08-19-2023 11:59-0400 Diastolic blood pressure 98 mm[Hg] Troy Brianaerson [facility] 08-19-2023 11:59-0400 Mean blood pressure 125 mm[Hg] Troy Brianaerson [facility] 08-19-2023 11:59-0400 Systolic blood pressure 180 mm[Hg] Tryo Christofferson [facility] 08-19-2023 11:52-0400 Diastolic blood pressure 100 mm[Hg] Troy Christofferson [facility] 08-19-2023 11:52-0400 Heart rate 106 /min Troy Brianaerson [facility] 08-19-2023 11:52-0400 SaO2% (BldA) [Mass fraction] 97 % Troy Christofferson [facility] 08-19-2023 11:52-0400 Systolic blood pressure 170 mm[Hg] Troy Christofferson [facility] 08-11-2023 09:41-0500 Diastolic blood pressure 96 mm[Hg] Bryant TAO [facility] 08-11-2023 09:41-0500 Heart rate 84 /min Bryant TAO [facility] 08-11-2023 09:41-0500 Mean blood pressure 126 mm[Hg] Bryant TAO [facility] 08-11-2023 09:41-0500 Systolic blood pressure 186 mm[Hg] Bryant TAO [facility] 08-11-2023 09:41-0500 Heart rate 88 /min Bryant TAO [facility] 08-11-2023 09:41-0500 SaO2% (BldA) [Mass fraction] 99 % Bryant TAO [facility] 08-11-2023 09:40-0500 Diastolic blood pressure 95 mm[Hg] Bryant TAO [facility] 08-11-2023 09:40-0500 Mean blood pressure 127 mm[Hg] Bryant TAO [facility] 08-11-2023 09:40-0500 Systolic blood pressure 191 mm[Hg] Bryant TAO [facility] 08-11-2023 09:40-0500 Respiratory rate 20 /min Bryant TAO [facility] 07-27-2023 11:03-0500 Blood Pressure Location RAMANDEEP PORTER [facility] 07-27-2023 11:03-0500 Diastolic blood pressure 76 mm[Hg] RAMANDEEP MINDI [facility] 07-27-2023 11:03-0500 Heart rate 84 /min RAMANDEEP MINDI [facility] 07-27-2023 11:03-0500 Systolic blood pressure 132 mm[Hg] RAMANDEEP MINDI [facility] 07-21-2023 10:06-0500 Body height 175.26 cm MD Jose Grace Work Phone: [facility] 07-21-2023 10:06-0500 Body weight 107.04 kg MD Jose Grace Work Phone: [facility] 07-18-2023 06:45-0500 Body height 175.26 cm MD Jose Grace Work Phone: [facility] 07-18-2023 06:45-0500 Body weight 107.04 kg MD Jose Grace Work Phone: [facility] 07-15-2023 13:58-0500 Diastolic blood pressure 88 mm[Hg] Troy Coulter [facility] 07-15-2023 13:58-0500 Heart rate 99 /min Troy Coulter [facility] 07-15-2023 13:58-0500 SaO2% (BldA) [Mass fraction] 98 % Troy Coulter [facility] 07-15-2023 13:58-0500 Systolic blood pressure 142 mm[Hg] Troy Coulter [facility] 05-16-2023 07:57-0500 Diastolic blood pressure 90 mm[Hg] Jose Grace [facility] 05-16-2023 07:57-0500 Mean blood pressure 111 mm[Hg] Jose Grace [facility] 05-16-2023 07:57-0500 Systolic blood pressure 152 mm[Hg] Jose Grace [facility] Encounters Encounter Date Encounter Type Care Provider Facility Start: 07-09-2025 ambulatory Jose Grace Facility :[facility] [place] Start: 01-07-2025 ambulatory Jose Grace Facility :[facility] [place] Start: 10-08-2024 ambulatory Jose Grace Facility :[facility] Start: 07-24-2024 ambulatory Estefania X Orzech Facilit y:[facility] Start: 07-16-2024 ambulatory MD Jose Grace [facility] Start: 07-09-2024 End: 07-09-2024 Lab Drop off Jose Grace [facility] Start: 07-09-2024 End: 07-09-2024 ambulatory Jose Grace Facility:[facility] Start: 05-22-2024 End: 05-22-2024 Bamboo flowsheet Christopher Shyam DO Work Phone: [facility] Start: 05-22-2024 End: 05-22-2024 Bamboo flowsheet Christopher Shyam DO Work Phone: [facility] Start: 05-22-2024 End: 05-22-2024 Patient encounter procedure Christopher Shyam DO Work Phone: [facility] Comment on above: Carpal tunnel syndro me on both sides (Primary Dx); Polyneuropathy Start: 05-22-2024 End: 05-22-2024 ambulatory CARLOS HOWE Not Available Start: 05-18-2024 End: 05-18-2024 ambulatory MAR[facility] Start: 02-22-2024 End: 02-22-2024 ambulatory Ramos Akkina Facility:[facility] Start: 02-22-2024 End: 02-22-2024 Patient encounter procedure Ramos Akkina [facility] Start: 01-30-2024 End: 01-30-2024 Lab Drop off Jose Grace [facility] Start: 01-30-2024 End: 01-30-2024 ambulatory Jose Grace Facility:[facility] Start: 01-13-2024 End: 01-13-2024 ambulatory XXXX NONE Facility:[facility] Start: 01-13-2024 End: 01-13-2024 Patient encounter procedure Javier Goins [facility] Start: 01-11-2024 End: 01-11-2024 Lab Drop off Jose Grace [facility] Start: 01-11-2024 End: 01-11-2024 ambulatory Jose Grace Facility:[facility] Start: 01-10-2024 End: 01-10-2024 ambulatory Bryant TAO Facility: [place] Start: 01-10-2024 End: 01-10-2024 Patient encounter procedure Bryant TAO [facility] Start: 01-05-2024 End: 01-05-2024 ambulatory MD Jose Grace Facility:[facility] Start: 01-02-2024 End: 02-02-2024 ambulatory Jose Grace Facility:CD:[id number] Start: 12-29-2023 End: 12-30-2023 Evaluation and management of inpatient Ramos Akmariselaa Facility[facility] Start: 12-29-2023 Emergency department patient visit Ronny Cartagena Facility:[facility] Start: 12-29-2023 End: 12-30-2023 Evaluation and management of inpatient Artemio Olivares [facility] Start: 12-27-2023 End: 12-27-2023 Lab Drop off Jose Grace [facility] Start: 12-27-2023 End: 12-27-2023 ambulatory Jose Grace Facility:[facility] Start: 12-22-2023 End: 12-22-2023 Lab Drop off MARINO KEARNS [facility] Start: 12-22-2023 End: 12-22-2023 ambulatory MARINO KEARNS Facility:[facility] Start: 11-28-2023 End: 11-28-2023 ambulatory Bryant TAO Facility:[facility] Start: 11-28-2023 End: 11-28-2023 Patient encounter procedure Bryant TAO [facility] Start: 10-19-2023 End: 10-19-2023 ambulatory XXXX NONE Facility:[facility] Start: 10-19-2023 End: 10-19-2023 Patient encounter procedure Jacinto Ramirez [facility] Start: 09-22-2023 End: 09-22-2023 ambulatory Bryant TAO Facility:[facility] [place] Start: 09-22-2023 End: 09-22-2023 Patient encounter procedure Bryant TAO [facility] [place] Start: 09-09-2023 End: 09-09-2023 ambulatory Jose Grace Facility:[facility] Start: 09-09-2023 End: 09-09-2023 Admission to same day surgery center MD Jose Grace Work Phone: [facility] Start: 09-09-2023 End: 09-09-2023 ambulatory MD Jose Grace Work Phone: [facility] Work Phone: Start: 09-09-2023 End: 09-09-2023 ambulatory Bryant TAO Facility:CD:[id number] Start: 09-01-2023 End: 09-01-2023 Admission to same day surgery center Bryant TAO [facility] Start: 09-01-2023 End: 09-01-2023 ambulatory Bryant Jaspreet TAO Facility[facility] Start: 08-19-2023 End: 08-19-2023 ambulatory Troy Coulter Facility:[facility] Start: 08-19-2023 End: 08-19-2023 Patient encounter procedure Troy Coulter [facility] Start: 08-15-2023 End: 08-15-2023 Lab Drop off Jose Grace [facility] Start: 08-15-2023 End: 08-15-2023 ambulatory Jose Grace Facility:[facility] Start: 08-11-2023 End: 08-11-2023 ambulatory Bryant Jaspreet TAO Facility:[facility] Start: 08-11-2023 End: 08-11-2023 Patient encounter procedure Bryant Vogel EMMY [facility] Start: 08-08-2023 End: 08-08-2023 ambulatory Troy Coulter Facility:[facility] Start: 08-05-2023 End: 08-05-2023 Patient encounter procedure Troy Coulter [facility] Start: 08-02-2023 End: 08-02-2023 ambulatory Andrzej HENRY Facility:[facility] Start: 08-02-2023 End: 08-02-2023 Patient encounter procedure Jose Grace [facility] Start: 07-27-2023 End: 07-27-2023 ambulatory RAMANDEEP PORTER Facility:[facility] Start: 07-27-2023 End: 07-27-2023 Patient encounter procedure RAMANDEEP PORTER [facility] Start: 07-26-2023 End: 07-26-2023 ambulatory Jose Grace Facility:[facility] [place] Start: 07-25-2023 End: 07-25-2023 ambulatory Jose Grace Facility:[facility] Start: 07-21-2023 End: 07-21-2023 ambulatory Ramandeep Porter Facility:[facility] Start: 07-21-2023 End: 07-21-2023 ambulatory MD Jose Grace Work Phone: [facility] Work Phone: Start: 07-21-2023 End: 07-21-2023 Patient encounter procedure MD Jose Grace Work Phone: [facility] Work Phone: Start: 07-18-2023 End: 07-18-2023 ambulatory MD Jose Grace Work Phone: [facility] Work Phone: Start: 07-18-2023 End: 07-18-2023 Patient encounter procedure MD Jose Grace Work Phone: [facility] Work Phone: Start: 07-15-2023 End: 07-15-2023 ambulatory Troy Coulter Facility:[facility] Start: 07-15-2023 End: 07-15-2023 Patient encounter procedure Troy Coulter [facility] Start: 07-14-2023 End: 07-14-2023 ambulatory Jose Grace Facility:[facility] [place] Start: 06-28-2023 End: 06-28-2023 Lab Drop off Jose Grace [facility] Start: 06-23-2023 End: 06-23-2023 Patient encounter procedure Manolo ALLEN [facility] Start: 06-22-2023 End: 06-22-2023 Patient encounter procedure RAMANDEEP PORTER [facility] Start: 06-21-2023 End: 06-21-2023 Patient encounter procedure RAMANDEEP PORTER [facility] Start: 06-13-2023 End: 06-13-2023 Lab Drop off Jose Grace [facility] Start: 05-27-2023 End: 05-27-2023 Lab Drop off Christy L Ese [facility] Start: 05-26-2023 End: 05-26-2023 Lab Drop off Jose PeterMalgorzata Ruiz [facility] Start: 05-18-2023 End: 06-10-2023 Pre-admission assessment Jose Donna Ruiz [facility] Start: 05-16-2023 End: 05-16-2023 Lab Drop off Jose GreenMalgorzata Ruiz [facility] Start: 04-04-2023 End: 04-04-2023 Lab Drop off Christy L Ese [facility] Start: 04-04-2023 End: 04-04-2023 Lab Drop off Christy L Ese [facility] Start: 01-20-2023 End: 01-20-2023 Lab Drop off Jose Grace [facility] Start: 07-13-2022 End: 07-14-[address] TYRESE ALEMAN Facility:[facility] Procedures Date Procedure Procedure Detail Performing Clinician Start: 05-22-2024 End: 05-22-2024 Needle emg ea extremty w/paraspinl area complete Carlos Howe DO Work Phone: Start: 09-09-2023 OR (TRUS) Prostate B iopsy w/Ultrasound (Not Applicable) MD Jose Grace Work Phone: Start: 07-21-2023 MR prostate wo/w con MD Jose Grace Work Phone: Start: 07-13-[address] TYRESE HARPER IGHT Comment on above: Performed By: #### P SAD #### [facility] [address] [place] [address] Dr. Pilo Jansen Arthroscopy Jose Ruiz Comment on above: right Arthroscopy Bryant TAO Comment on above: right back surgery 2 Josehalima Grace Comment on above: lower back Colonoscopy Javier Kirnus Comment on above: years ago-- 1989's Decompression of med valdo nerve Jose Grace Decompression of med valdo nerve Bryant TOA hand and elbow surgery 3 Marcin Grace Comment on above: left hand and elbow surge ry LEFT 3 Bryant TAO Comment on above: left hand and elbow surge ry LEFT 4 Javier Kirnus Comment on above: left Hand tendon repaired Josehalima Grace Comment on above: left thumb tendon Hand tendon repaired Bryant TAO Comment on above: left thumb tendon Spinal arthrodesis RAMANDEEP PORTER Spinal arthrodesis Bryant JOHNSON Plan of Treatment Date Care Activity Detail Author Start: 05-22-2024 End: 05-22-2024 Patient encounter procedure 05/22/2024 8:30 AM EST Procedure Visit [facility] [address] [place] [id number] Carlos Howe DO [address] [place] [id number] Arrived [facility] Comment on above: Arrived Start: 09-09-2023 End: 09-09-2023 [facility] Start: 03-09-2021 Pneumococcal Vaccine : 65+ Years (2 of 2 - PPSV23 or PCV20) Pneumococcal Vaccine: 65+ Years (2 of 2 - PPSV23 or PCV20) [facility] Start: 1955 Screening for malign ant neoplasm of colon [facility] Patient referral [facility] Work Phone: Immunizations Immunization Date Immunization Notes Care Provider Fa [facility] 03-20-2024 influenza virus vaccine, unspecified formulation Jose Grace [facility] 03-20-2024 SARS-CoV-2 mRNA (tozinameran 5y-11y) vaccine Jose Grace [facility] Comment on above: Result Comment: pfiz er 03-16-2023 influenza virus vaccine, unspecified formulation Jose Grace [facility] 04-05-2022 influenza virus vaccine, unspecified formulation Jose Grace [facility] 04-05-2022 SARS-CoV-2 (COVID-19 ) [id number] Jose Grace [facility] 03-01-2021 influenza virus vaccine, unspecified formulation Jose Grace [facility] 03-01-2021 SARS-CoV-2 (COVID-19 ) mRNA BNT-162b2 kristy Grace [facility] Comment on above: Result Comment: 2022: [id number] 08-08-2020 SARS-CoV-2 (COVID-19 ) mRNA BNT-162b2 kristy Grace [facility] 07-18-2020 SARS-CoV-2 (COVID-19 ) mRNA BNT-162b2 kristy Grace [facility] 03-09-2020 influenza virus vaccine, unspecified formulation Jose Grace [facility] 03-09-2020 pneumococcal conjuga te vaccine, 13 valent Jose Grace [facility] NEGATED: Highlighted row has not occurred!02-14-2023 influenza virus vaccine, unspecified formulation Christy Mulligan [facility] Payers Date Payer Category Payer Self-pay [id number] 2022 Private Health Insurance [facility] [id number] 2018 Medicare MEDICARE [id number] 1959 Medicare [id number] 1959 Unknown [id number] 1954 Unknown [id number] 2.16.840.1.970627.3.579.2. 593 1954 Unknown [id number] 2.16.840.1.789492.3.579.2. 1954 Unknown [id number] 2.16.840.1.489416.3.579.2. 72 1954 Unknown [id number] 2.16.840.1.698835.3.579.2. 72 1954 Unknown [id number] 2.16.840.1.128471.3.579.2. 72 1954 Unknown [id number] 2.16.840.1.177999.3.579.2. 727 1954 Unknown [id number] 2.16.840.1.623923.3.579.2. 72 1954 Unknown [id number] 2.16.840.1.482077.3.579.2. 72 1954 Unknown [id number] 2.16.840.1.498698.3.579.2. 72 1954 Unknown [id number] 2.16.840.1.066420.3.579.2. 72 1954 Unknown [id number] 2.16.840.1.970162.3.579.2. 1259 1954 Unknown [id number] 2.16.840.1.208895.3.579.2. 1954 Unknown [id number] 2.16.840.1.169235.3.579.2 1954 Unknown [id number] 2.16.840.1.108712.3.579.2. 1954 Unknown [id number] 2.16.840.1.795646.3.579.2 1954 Unknown [id number] 2.16.840.1.200847.3.579.2. 1954 Unknown [id number] 2.16.840.1.238417.3.579.2 1954 Unknown [id number] 2.16.840.1.928063.3.579.2 1954 Unknown [id number] 2.16.840.1.128208.3.579.2 1954 Unknown [id number] 2.16.840.1.146633.3.579.2 1954 Unknown [id number] 2.16.840.1.139241.3.579.2 1954 Unknown [id number] 2.16.840.1.231250.3.579.2 1954 Unknown [id number] 2.16.840.1.182673.3.579.2 1954 Unknown [id number] 2.16.840.1.214669.3.579.2 1954 Unknown [id number] 2.16.840.1.909248.3.579.2 1954 Unknown [id number] 2.16.840.1.642104.3.579.2 1954 Unknown [id number] 2.16.840.1.114215.3.579.2. 1954 Unknown [id number] 2.16.840.1.102963.3.579.2. 1954 Unknown [id number] 2.16.840.1.782584.3.579.2 1954 Unknown [id number] 2.16.840.1.996388.3.579.2. 1954 Unknown [id number] 2.16.840.1.151577.3.579.2 1954 Unknown [id number] 2.16.840.1.440565.3.579.2 1954 Unknown [id number] 2.16.840.1.745154.3.579.2 1954 Unknown [id number] 2.16.840.1.530783.3.579.2 1954 Unknown [id number] 2.16.840.1.122516.3.579.2 1954 Unknown [id number] 2.16.840.1.090477.3.579.2 1954 Unknown [id number] 2.16.840.1.497801.3.579.2 1954 Unknown [id number] 2.16.840.1.695759.3.579.2 1954 Unknown [id number] 2.16.840.1.873940.3.579.2 1954 Unknown [id number] 2.16.840.1.925641.3.579.2 1954 Unknown [id number] 2.16.840.1.034888.3.579.2 1954 Unknown [id number] 2.16.840.1.674646.3.579.2 1954 Unknown [id number] 2.16.840.1.239116.3.579.2. 727 1954 Unknown [id number] 2.16.840.1.313445.3.579.2. 727 Unknown Regular Insurance [id number] Unknown [id number] 2.16.840.1.940367.3.579.2. 531 Unknown [id number] 2.16.840.1.739389.3.579.2. 531 Social History Date Type Detail Facility Start: 01-20-2023 End: 07-09-2024 Tobacco smoking status Ex-smoker (finding) [facility] Comment on above: former smoker, quit 2006 uses chewing tobacco former smoker. stopp ed at age 50. Tobacco smoking status Smokeless tobacco user within last 30 days [facility] Comment on above: former smoker, quit 2005 uses chewing tobacco former smoker. stopp ed at age 50. Sex Assigned At Male [facility] Start: 1955 Sex Assigned At Male F [facility] Tobacco smoking status [facility] Tobacco smoking consumption unknown [facility] Start: 1955 Sex assigned at Not on file N [facility] Medical Equipment Procedure Code Equipment Code Equipment Origin al Text Equipment Identifier Dates [facility] DME Prescription, See Instructions, 100 strip(s), 3, One touch ultra 2 test strips Use to tests sugars once a day Dx E11.9, [facility], 174.5, cm, 05/26/23 9:14:00 EST, Height/Length Dosing, 109.1, kg, 05/26/23 9:14:00 EST, Weight Dosing Start: 05-26-2023 [facility] DME Prescription, See Instructions, 100 lancet(s), 3, Soft click lancets Use to test blood sugars once a day Dx E11.9, [facility], Supply, 174.5, cm, 05/26/23 9:14:00 EST, Height/Length Dosing, 109.1, kg, 05/26/23 9:14:00 EST, Weight Dosing Start: 05-26-2023 [facility] DME Prescription, See Instructions, 100 strip(s), 3, One touch ultra 2 test strips Use to tests sugars once a day Dx E11.9, [facility], Supply, 174.5, cm, 05/26/23 9:14:00 EST, Height/Length Dosing, 109.1, kg, 05/26/23 9:14:00 EST, Weight Dosing Start: 05-26-2023 [facility] DME Prescription, See Instructions, 100 lancet(s), 3, Soft click lancets Use to test blood sugars once a day Dx E11.9, [facility], Supply, 174.5, cm, 05/26/23 9:14:00 EST, Height/Length Dosing, 109.1, kg, 05/26/23 9:14:00 EST, Weight Dosing Start: 05-26-2023 [facility] DME Prescription, See Instructions, 100 strip(s), 3, One touch ultra 2 test strips Use to tests sugars once a day Dx E11.9, [facility], Supply, 174.5, cm, 05/26/23 9:14:00 EST, Height/Length Dosing, 109.1, kg, 05/26/23 9:14:00 EST, Weight Dosing Start: 05-26-2023 [facility] DME Prescription, See Instructions, 100 lancet(s), 3, Soft click lancets Use to test blood sugars once a day Dx E11.9, [facility], Supply, 174.5, cm, 05/26/23 9:14:00 EST, Height/Length Dosing, 109.1, kg, 05/26/23 9:14:00 EST, Weight Dosing Start: 05-26-2023 [facility] DME Prescription, See Instructions, 100 strip(s), 3, One touch ultra 2 test strips Use to tests sugars once a day Dx E11.9, [facility], Supply, 174.5, cm, 05/26/23 9:14:00 EST, Height/Length Dosing, 109.1, kg, 05/26/23 9:14:00 EST, Weight Dosing Start: 05-26-2023 [facility] DME Prescription, See Instructions, 100 lancet(s), 3, Soft click lancets Use to test blood sugars once a day Dx E11.9, [facility], Supply, 174.5, cm, 05/26/23 9:14:00 EST, Height/Length Dosing, 109.1, kg, 05/26/23 9:14:00 EST, Weight Dosing Start: 05-26-2023 [facility] D[facility] Prescription, See Instructions, 100 strip(s), 3, One touch ultra 2 test strips Use to tests sugars once a day Dx E11.9, [facility], Supply, 174.5, cm, 05/26/23 9:14:00 EST, Height/Length Dosing, 109.1, kg, 05/26/23 9:14:00 EST, Weight Dosing Start: 05-26-2023 [facility] DME Prescription, See Instructions, 100 lancet(s), 3, Soft click lancets Use to test blood sugars once a day Dx E11.9, [facility], Supply, 174.5, cm, 05/26/23 9:14:00 EST, Height/Length Dosing, 109.1, kg, 05/26/23 9:14:00 EST, Weight Dosing Start: 05-26-2023 [facility] DME Prescription, See Instructions, 100 strip(s), 3, One touch ultra 2 test strips Use to tests sugars once a day Dx E11.9, [facility], Supply, 174.5, cm, 05/26/23 9:14:00 EST, Height/Length Dosing, 109.1, kg, 05/26/23 9:14:00 EST, Weight Dosing Start: 05-26-2023 [facility] DME Prescription, See Instructions, 100 lancet(s), 3, Soft click lancets Use to test blood sugars once a day Dx E11.9, [facility], Supply, 174.5, cm, 05/26/23 9:14:00 EST, Height/Length Dosing, 109.1, kg, 05/26/23 9:14:00 EST, Weight Dosing Start: 05-26-2023 [facility] DME Prescription, See Instructions, 100 strip(s), 3, One touch ultra 2 test strips Use to tests sugars once a day Dx E11.9, [facility], Supply, 174.5, cm, 05/26/23 9:14:00 EST, Height/Length Dosing, 109.1, kg, 05/26/23 9:14:00 EST, Weight Dosing Start: 05-26-2023 [facility] DME Prescription, See Instructions, 100 lancet(s), 3, Soft click lancets Use to test blood sugars once a day Dx E11.9, [facility], Supply, 174.5, cm, 05/26/23 9:14:00 EST, Height/Length Dosing, 109.1, kg, 05/26/23 9:14:00 EST, Weight Dosing Start: 05-26-2023 [facility] DME Prescription, See Instructions, 100 strip(s), 3, One touch ultra 2 test strips Use to tests sugars once a day Dx E11.9, [facility], Supply, 174.5, cm, 05/26/23 9:14:00 EST, Height/Length Dosing, 109.1, kg, 05/26/23 9:14:00 EST, Weight Dosing Start: 05-26-2023 [facility] DME Prescription, See Instructions, 100 lancet(s), 3, Soft click lancets Use to test blood sugars once a day Dx E11.9, [facility], Supply, 174.5, cm, 05/26/23 9:14:00 EST, Height/Length Dosing, 109.1, kg, 05/26/23 9:14:00 EST, Weight Dosing Start: 05-26-2023 [facility] DME Prescription, See Instructions, 100 strip(s), 3, One touch ultra 2 test strips Use to tests sugars once a day Dx E11.9, [facility], Supply, 174.5, cm, 05/26/23 9:14:00 EST, Height/Length Dosing, 109.1, kg, 05/26/23 9:14:00 EST, Weight Dosing Start: 05-26-2023 [facility] DME Prescription, See Instructions, 100 lancet(s), 3, Soft click lancets Use to test blood sugars once a day Dx E11.9, [facility], Supply, 174.5, cm, 05/26/23 9:14:00 EST, Height/Length Dosing, 109.1, kg, 05/26/23 9:14:00 EST, Weight Dosing Start: 05-26-2023 [place] Lev el Deformity FDA Start: 05-18-2017 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 rt: 05-18-2017 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 rt: 05-18-2017 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 rt: 05-18-2017 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 rt: 05-18-2017 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 rt: 05-18-2017 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 rt: 05-18-2017 NUVASIVE RELINE SET SCREW FDA Start: 05-18-2017 NUVASIVE RELINE SET SCREW FDA Start: 05-18-2017 NUVASIVE RELINE SET SCREW FDA Start: 05-18-2017 NUVASIVE RELINE SET SCREW FDA Start: 05-18-2017 CANCELLOUS 30CC CRUSHED FDA Start: 05-18-2017 NUVASIVE RELINE SET SCREW FDA Start: 05-18-2017 NUVASIVE RELINE SET SCREW FDA Start: 05-18-2017 NUVASIVE RELINE SET SCREW FDA Start: 05-18-2017 NUVASIVE RELINE SET SCREW FDA Start: 05-18-2017 CROSSLINK CAPLOX II MED/LG FDA Start: 05-18-2017 INFUSE LARGE 8.0CC FDA Start: 05-18-2017 MAS PLIF INTERBO DY NUVASIVE FDA Start: 05-18-2017 MAS PLIF INTERBO DY NUVASIVE FDA Start: 05-18-2017 NUVASIVE RELINE CESAR FDA Start : 05-18-2017 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 rt: 05-18-2017 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 rt: 05-18-2017 [place] Three Lev el Deformity FDA Start: 05-18-2017 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 rt: 05-18-2017 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 rt: 05-18-2017 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 rt: 05-18-2017 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 rt: 05-18-2017 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 rt: 05-18-2017 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 rt: 05-18-2017 NUVASIVE RELINE SET SCREW FDA Start: 05-18-2017 NUVASIVE RELINE SET SCREW FDA Start: 05-18-2017 NUVASIVE RELINE SET SCREW FDA Start: 05-18-2017 NUVASIVE RELINE SET SCREW FDA Start: 05-18-2017 CANCELLOUS 30CC CRUSHED FDA Start: 05-18-2017 NUVASIVE RELINE SET SCREW FDA Start: 05-18-2017 NUVASIVE RELINE SET SCREW FDA Start: 05-18-2017 NUVASIVE RELINE SET SCREW FDA Start: 05-18-2017 NUVASIVE RELINE SET SCREW FDA Start: 05-18-2017 CROSSLINK CAPLOX II MED/LG FDA Start: 05-18-2017 INFUSE LARGE 8.0CC FDA Start: 05-18-2017 MAS PLIF INTERBO DY NUVASIVE FDA Start: 05-18-2017 MAS PLIF INTERBO DY NUVASIVE FDA Start: 05-18-2017 NUVASIVE RELINE CESAR FDA Start : 05-18-2017 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 rt: 05-18-2017 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 rt: 05-18-2017 Misc DME Prescription, See Instructions, 100 strip(s), 3, One touch ultra 2 test strips Use to tests sugars once a day Dx E11.9, [facility], Supply, 174.5, cm, 05/26/23 9:14:00 EST, Height/Length Dosing, 109.1, kg, 05/26/23 9:14:00 EST, Weight Dosing Start: 05-26-2023 [facility] DME Prescription, See Instructions, 100 lancet(s), 3, Soft click lancets Use to test blood sugars once a day Dx E11.9, [facility], Supply, 174.5, cm, 05/26/23 9:14:00 EST, Height/Length Dosing, 109.1, kg, 05/26/23 9:14:00 EST, Weight Dosing Start: 05-26-2023 [facility] DME Prescription, See Instructions, 100 strip(s), 3, One touch ultra 2 test strips Use to tests sugars once a day Dx E11.9, [facility], Supply, 174.5, cm, 05/26/23 9:14:00 EST, Height/Length Dosing, 109.1, kg, 05/26/23 9:14:00 EST, Weight Dosing Start: 05-26-2023 [facility] DME Prescription, See Instructions, 100 lancet(s), 3, Soft click lancets Use to test blood sugars once a day Dx E11.9, [facility], Supply, 174.5, cm, 05/26/23 9:14:00 EST, Height/Length Dosing, 109.1, kg, 05/26/23 9:14:00 EST, Weight Dosing Start: 05-26-2023 [facility] DME Prescription, See Instructions, 100 strip(s), 3, One touch ultra 2 test strips Use to tests sugars once a day Dx E11.9, [facility], Supply, 174.5, cm, 05/26/23 9:14:00 EST, Height/Length Dosing, 109.1, kg, 05/26/23 9:14:00 EST, Weight Dosing Start: 05-26-2023 [facility] DME Prescription, See Instructions, 100 lancet(s), 3, Soft click lancets Use to test blood sugars once a day Dx E11.9, [facility], Supply, 174.5, cm, 05/26/23 9:14:00 EST, Height/Length Dosing, 109.1, kg, 05/26/23 9:14:00 EST, Weight Dosing Start: 05-26-2023 [facility] DME Prescription, See Instructions, 100 strip(s), 3, One touch ultra 2 test strips Use to tests sugars once a day Dx E11.9, [facility], Supply, 174.5, cm, 05/26/23 9:14:00 EST, Height/Length Dosing, 109.1, kg, 05/26/23 9:14:00 EST, Weight Dosing Start: 05-26-2023 [facility] DME Prescription, See Instructions, 100 lancet(s), 3, Soft click lancets Use to test blood sugars once a day Dx E11.9, [facility], Supply, 174.5, cm, 05/26/23 9:14:00 EST, Height/Length Dosing, 109.1, kg, 05/26/23 9:14:00 EST, Weight Dosing Start: 05-26-2023 [facility] DME Prescription, See Instructions, 100 strip(s), 3, One touch ultra 2 test strips Use to tests sugars once a day Dx E11.9, [facility], Supply, 174.5, cm, 05/26/23 9:14:00 EST, Height/Length Dosing, 109.1, kg, 05/26/23 9:14:00 EST, Weight Dosing Start: 05-26-2023 [facility] DME Prescription, See Instructions, 100 lancet(s), 3, Soft click lancets Use to test blood sugars once a day Dx E11.9, [facility], Supply, 174.5, cm, 05/26/23 9:14:00 EST, Height/Length Dosing, 109.1, kg, 05/26/23 9:14:00 EST, Weight Dosing Start: 05-26-2023 [facility] DME Prescription, See Instructions, 100 strip(s), 3, One touch ultra 2 test strips Use to tests sugars once a day Dx E11.9, [facility], Supply, 174.5, cm, 05/26/23 9:14:00 EST, Height/Length Dosing, 109.1, kg, 05/26/23 9:14:00 EST, Weight Dosing Start: 05-26-2023 [facility] DME Prescription, See Instructions, 100 lancet(s), 3, Soft click lancets Use to test blood sugars once a day Dx E11.9, [facility], Supply, 174.5, cm, 05/26/23 9:14:00 EST, Height/Length Dosing, 109.1, kg, 05/26/23 9:14:00 EST, Weight Dosing Start: 05-26-2023 [facility] DME Prescription, See Instructions, 100 strip(s), 3, One touch ultra 2 test strips Use to tests sugars once a day Dx E11.9, [facility], Supply, 174.5, cm, 05/26/23 9:14:00 EST, Height/Length Dosing, 109.1, kg, 05/26/23 9:14:00 EST, Weight Dosing Start: 05-26-2023 [facility] DME Prescription, See Instructions, 100 lancet(s), 3, Soft click lancets Use to test blood sugars once a day Dx E11.9, [facility], Supply, 174.5, cm, 05/26/23 9:14:00 EST, Height/Length Dosing, 109.1, kg, 05/26/23 9:14:00 EST, Weight Dosing Start: 05-26-2023 [place] Lev el Deformity FDA Start: 05-18-2017 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 rt: 05-18-2017 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 rt: 05-18-2017 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 rt: 05-18-2017 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 rt: 05-18-2017 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 rt: 05-18-2017 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 rt: 05-18-2017 NUVASIVE RELINE SET SCREW FDA Start: 05-18-2017 NUVASIVE RELINE SET SCREW FDA Start: 05-18-2017 NUVASIVE RELINE SET SCREW FDA Start: 05-18-2017 NUVASIVE RELINE SET SCREW FDA Start: 05-18-2017 CANCELLOUS 30CC CRUSHED FDA Start: 05-18-2017 NUVASIVE RELINE SET SCREW FDA Start: 05-18-2017 NUVASIVE RELINE SET SCREW FDA Start: 05-18-2017 NUVASIVE RELINE SET SCREW FDA Start: 05-18-2017 NUVASIVE RELINE SET SCREW FDA Start: 05-18-2017 CROSSLINK CAPLOX II MED/LG FDA Start: 05-18-2017 INFUSE LARGE 8.0CC FDA Start: 05-18-2017 MAS PLIF INTERBO DY NUVASIVE FDA Start: 05-18-2017 MAS PLIF INTERBO DY NUVASIVE FDA Start: 05-18-2017 NUVASIVE RELINE CESAR FDA Start : 05-18-2017 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 rt: 05-18-2017 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 rt: 05-18-2017 [facility] DME Prescription, See Instructions, 100 strip(s), 3, One touch ultra 2 test strips Use to tests sugars once a day Dx E11.9, [facility], Supply, 174.5, cm, 05/26/23 9:14:00 EST, Height/Length Dosing, 109.1, kg, 05/26/23 9:14:00 EST, Weight Dosing Start: 05-26-2023 [facility] DME Prescription, See Instructions, 100 lancet(s), 3, Soft click lancets Use to test blood sugars once a day Dx E11.9, [facility], Supply, 174.5, cm, 05/26/23 9:14:00 EST, Height/Length Dosing, 109.1, kg, 05/26/23 9:14:00 EST, Weight Dosing Start: 05-26-2023 [facility] DME Prescription, See Instructions, 100 strip(s), 3, One touch ultra 2 test strips Use to tests sugars once a day Dx E11.9, [facility], Supply, 174.5, cm, 05/26/23 9:14:00 EST, Height/Length Dosing, 109.1, kg, 05/26/23 9:14:00 EST, Weight Dosing Start: 05-26-2023 [facility] DME Prescription, See Instructions, 100 lancet(s), 3, Soft click lancets Use to test blood sugars once a day Dx E11.9, [facility], Supply, 174.5, cm, 05/26/23 9:14:00 EST, Height/Length Dosing, 109.1, kg, 05/26/23 9:14:00 EST, Weight Dosing Start: 05-26-2023 [facility] DME Prescription, See Instructions, 100 strip(s), 3, One touch ultra 2 test strips Use to tests sugars once a day Dx E11.9, [facility], Supply, 174.5, cm, 05/26/23 9:14:00 EST, Height/Length Dosing, 109.1, kg, 05/26/23 9:14:00 EST, Weight Dosing Start: 05-26-2023 [facility] DME Prescription, See Instructions, 100 lancet(s), 3, Soft click lancets Use to test blood sugars once a day Dx E11.9, [facility], Supply, 174.5, cm, 05/26/23 9:14:00 EST, Height/Length Dosing, 109.1, kg, 05/26/23 9:14:00 EST, Weight Dosing Start: 05-26-2023 [facility] DME Prescription, See Instructions, 100 strip(s), 3, One touch ultra 2 test strips Use to tests sugars once a day Dx E11.9, [facility], Supply, 174.5, cm, 05/26/23 9:14:00 EST, Height/Length Dosing, 109.1, kg, 05/26/23 9:14:00 EST, Weight Dosing Start: 05-26-2023 [facility] DME Prescription, See Instructions, 100 lancet(s), 3, Soft click lancets Use to test blood sugars once a day Dx E11.9, [facility], Supply, 174.5, cm, 05/26/23 9:14:00 EST, Height/Length Dosing, 109.1, kg, 05/26/23 9:14:00 EST, Weight Dosing Start: 05-26-2023 [facility] DME Prescription, See Instructions, 100 strip(s), 3, One touch ultra 2 test strips Use to tests sugars once a day Dx E11.9, [facility], Supply, 174.5, cm, 05/26/23 9:14:00 EST, Height/Length Dosing, 109.1, kg, 05/26/23 9:14:00 EST, Weight Dosing Start: 05-26-2023 [facility] DME Prescription, See Instructions, 100 lancet(s), 3, Soft click lancets Use to test blood sugars once a day Dx E11.9, [facility], Supply, 174.5, cm, 05/26/23 9:14:00 EST, Height/Length Dosing, 109.1, kg, 05/26/23 9:14:00 EST, Weight Dosing Start: 05-26-2023 [facility] DME Prescription, See Instructions, 100 strip(s), 3, One touch ultra 2 test strips Use to tests sugars once a day Dx E11.9, [facility], Supply, 174.5, cm, 05/26/23 9:14:00 EST, Height/Length Dosing, 109.1, kg, 05/26/23 9:14:00 EST, Weight Dosing Start: 05-26-2023 [facility] DME Prescription, See Instructions, 100 lancet(s), 3, Soft click lancets Use to test blood sugars once a day Dx E11.9, [facility], Supply, 174.5, cm, 05/26/23 9:14:00 EST, Height/Length Dosing, 109.1, kg, 05/26/23 9:14:00 EST, Weight Dosing Start: 05-26-2023 'Number 1' Gluco meter and test strips testing BS twice daily- will bring equipment to TCM f/u to update brand Start: 01-03-2024 'Number 1' Gluco meter and test strips testing BS twice daily- will bring equipment to TCM f/u to update brand Start: 01-03-2024 'Number 1' Gluco meter and test strips testing BS twice daily- will bring equipment to TCM f/u to update brand Start: 01-03-2024 'Number 1' Gluco meter and test strips testing BS twice daily- will bring equipment to TCM f/u to update brand Start: 01-03-2024 'Number 1' Gluco meter and test strips testing BS twice daily- will bring equipment to TCM f/u to update brand Start: 01-03-2024 'Number 1' Gluco meter and test strips testing BS twice daily- will bring equipment to TCM f/u to update brand Start: 01-03-2024 Goals Date Patient Goal Desired Activity /State Functional Status Date Assessment Result Facility 01-13-2024 Functional Status N/A [facility] 01-10-2024 Functional Status N/A [facility] 12-29-2023 Functional Status N/A [facility] 12-29-2023 Functional Status [facility] 11-28-2023 Functional Status N/A [facility] 10-19-2023 Functional Status No [facility] 09-22-2023 Functional Status N/A [facility] 08-19-2023 Functional Status N/A [facility] 08-11-2023 Functional Status No [facility] 07-27-2023 Functional Status N/A [facility] 07-15-2023 Functional Status N/A [facility] 06-21-2023 Functional Status N/A [facility] Clinical Notes 06-13-2019 to 07-16-2024 SANDRA Calix - 05/22/2024 8:30 AM EST Note Date & Type Note Facility 07-16-2024 Note Patient Education Nutrition BMI for Adults Body mass index (BMI) is a number found using a person's weight and height. BMI can help tell how much of a person's weight is made up of fat. BMI does not measure body fat directly. It is used instead of tests that directly measure body fat, which can be difficult and expensive. What are BMI measurements used for? BMI is useful to: ??? Find out if your weight puts you at higher risk for medical problems. ??? Help recommend changes, such as in diet and exercise. This can help you reach a healthy weight. BMI screening can be done again to see if these changes are working. How is BMI calculated? Your height and weight are measured. The BMI is found from those numbers. This can be done with [place] or metric measurements. Note that charts and online BMI calculators are available to help you find your BMI quickly and easily without doing these calculations. To calculate your BMI in [place] measurements: 1. Measure your weight in pounds (lb). 2. Multiply the number of pounds by 703. ??? So, for an adult who weighs 150 lb, multiply that number by 703: 150 x 703, which equals 105,450. 3. Measure your height in inches. Then multiply that number by itself to get a measurement called inches squared. ??? So, for an adult who is 70 inches tall, the inches squared measurement is 70 inches x 70 inches, which equals 4,900 inches squared. 4. Divide the total from step 2 (number of lb x 703) by the total from step 3 (inches squared): 105,450 ? 4,900 = 21.5. This is your BMI. To calculate your BMI in metric measurements: 1. Measure your weight in kilograms (kg). ??? For this example, the weight is 70 kg. 2. Measure your height in meters (m). Then multiply that number by itself to get a measurement called meters squared. ??? So, for an adult who is 1.75 m tall, the meters squared measurement is 1.75 m x 1.75 m, which equals 3.1 meters squared. 3. Divide the number of kilograms (your weight) by the meters squared number. In this example: 70 ? 3.1 = 22.6. This is your BMI. What do the results mean? BMI charts are used to see if you are underweight, normal weight, overweight, or obese. The following guidelines will be used: ??? Underweight: BMI less than 18.5. ??? Normal weight: BMI between 18.5 and 24.9. ??? Overweight: BMI between 25 and 29.9. ??? Obese: BMI of 30 or above. BMI is a tool and cannot diagnose a condition. Talk with your health care provider about what your BMI means for you. Keep these notes in mind: ??? Weight includes fat and muscle. Someone with a muscular build, such as an athlete, may have a BMI that is higher than 24.9. In cases like these, BMI is not a correct measure of body fat. ??? If you have a BMI of 25 or higher, your provider may need to do more testing to find out if excess body fat is the cause. ??? BMI is measured the same way for males and females. Females usually have more body fat than males of the same height and weight. Where to find more information For more information about BMI, including tools to quickly find your BMI, go to: ??? Centers for Disease Control and Prevention: cdc.gov ??? [place] [employer]: heart.org ??? National Heart, Lung, and Blood [place]: nhlbi.nih.gov This information is not intended to replace advice given to you by your health care provider. Make sure you discuss any questions you have with your health care provider. Document Revised: 02/10/2023 Document Reviewed: 02/03/2023 [employer] Patient Education ? 2023 [employer]. [facility] 07-09-2024 Note Patient Education Cardiovascular Hypertension, Adult High blood [...] risk factors are under your control, including: ??? Smoking. ??? Not getting enough exercise or physical activity. ??? Being overweight. ??? Having too much fat, sugar, calories, or salt (sodium) in your diet. ??? Drinking too much alcohol. Other risk factors include: ??? Having a personal history of heart disease, diabetes, high cholesterol, or kidney disease. ??? Stress. ??? Having a family history of high blood pressure and high cholesterol. ??? Having obstructive sleep apnea. ??? Age. The risk increases with age. What are the signs or symptoms? High blood pressure may not cause symptoms. Very high blood pressure (hypertensive crisis) may cause: ??? Headache. ??? Fast or irregular heartbeats (palpitations). ??? Shortness of breath. ??? Nosebleed. ??? Nausea and vomiting. ??? Vision changes. ??? Severe chest pain, dizziness, and seizures. How [...] risk factors, you may be asked to: ??? Return on a different day to have your blood pressure checked again. ??? Monitor your blood pressure at home for [...] your blood pressure under control and if: ??? Your systolic blood pressure is above 130. ??? Your diastolic blood pressure is above 80. Your personal target blood pressure may vary depending on your medical conditions, your age, and other factors. Follow these instructions at home: Eating and drinking ??? Eat a diet that is high in [...] higher in sodium, added sugar, and fat. ??? Reduce your daily sodium intake. Many people with hypertension should eat less than 1,500 mg of sodium a day. ??? Do not drink alcohol if: ? Your health care provider tells you not to drink. ? You are , may be , or are planning to become . ??? If you drink alcohol: ? Limit how much you have to: ? 0?1 drink a day for women. ? 0?2 drinks a day for men. ? Know how much alcohol is in your drink. In the [place] one drink equals one 12 oz bottle (more content not included)... [facility] 05-22-2024 History of Present illness Narrative Images from the original note were not included. 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 Hx of left CTR & surgery to left elbow. Hx of DM. Not on blood thinners. Comments: Procedure was explained to the patient who expressed understanding. Patient appeared to have tolerated the test well despite some discomfort due to the nature of the test. documented in this encounter [facility] 05-18-2024 Note Patient Education Neurology Paresthesia Paresthesia is a burning or prickling feeling. This feeling can happen in any part of the body. It often happens in the hands, arms, legs, or feet. Usually, it is not painful. In most cases, the feeling goes away in a short time and is not a sign of a serious problem. If you have paresthesia that lasts a long time, you need to see your doctor. Follow these instructions at home: Nutrition Eat a healthy diet. This includes: ??? Eating foods that are high in fiber. These include beans, whole grains, and fresh fruits and vegetables. ??? Limiting foods that are high in fat and sugar. These include fried or sweet foods. Alcohol use ??? Do not drink alcohol if: ? Your doctor tells you not to drink. ? You are , may be , or are planning to become . ??? If you drink alcohol: ? Limit how much you have to: ? 0?1 drink a day for women. ? 0?2 drinks a day for men. ? Know how much alcohol is in your drink. In the [place] one drink equals one 12 oz bottle of beer (355 mL), one 5 oz glass of wine (148 mL), or one 1? oz glass of hard liquor (44 mL). General instructions ??? Take nufm-ldt-gkmmrsr and prescription medicines only as told by your doctor. ??? Do not smoke or use any products that contain nicotine or tobacco. If you need help quitting, ask your doctor. ??? If you have diabetes, work with your doctor to make sure your blood sugar stays in a healthy range. ??? If your feet feel numb: ? Check for redness, warmth, and swelling every day. ? Wear padded socks and comfortable shoes. These help protect your feet. ??? Keep all follow-up visits. Contact a doctor if: ??? You have paresthesia that gets worse or does not go away. ??? You lose feeling (have numbness) after an injury. ??? Your burning or prickling feeling gets worse when you walk. ??? You have pain or cramps. ??? You feel dizzy or you faint. ??? You have a rash. Get help right away if: ??? You feel weak or have new weakness in an arm or leg. ??? You have trouble walking or moving. ??? You have problems speaking, understanding, or seeing. ??? You feel confused. ??? You cannot control when you pee (urinate) or poop (have a bowel movement). These symptoms may be an emergency. Get help right away. Call 911. ??? Do not wait to see if the symptoms will go away. ??? Do not drive yourself to the hospital. Summary ??? Paresthesia is a burning or prickling feeling. It often happens in the hands, arms, legs, or feet. ??? In most cases, the feeling goes away in a short time and is not a sign of a serious problem. ??? If you have paresthesia that lasts a long time, you need to be seen by your doctor. This information is not intended to replace advice given to you by your health care provider. Make sure you discuss any questions you have with your health care provider. Document Revised: 02/01/2022 Document Reviewed: 02/01/2022 [employer] Patient Education ? 2023 [employer]. [facility] 01-30-2024 Note Nurse Consultation [place] Reason for Visit Here for lab draw Assessment/Plan 1. Hypomagnesemia (E83.42: Hypomagnesemia) Medications Aleve, 220 mg, Oral, q12hr, Self Directed amLODIPine 5 mg Tab, See Instructions atorvastatin 40 mg Tab, 40 mg= 1 tab(s), Oral, Daily, 1 refills cyanocobalamin 1000 mcg Tab, 1000 mcg= 1 tab(s), Oral, Daily Glucophage XR 500 mg Tab-ER, 1000 mg= 2 tab(s), Oral, BID, 1 refills lisinopril 40 mg Tab, 40 mg= 1 tab(s), Oral, Daily magnesium oxide, 400 mg, Oral, TID magnesium oxide 400 mg Tab, 400 mg, Oral, TID, 3 refills metoprolol 25 mg ER Tab, 25 mg= 1 tab(s), Oral, Daily, 6 refills Misc DME Prescription omeprazole 20 mg Cap-DR, 20 mg= 1 cap(s), Oral, Daily potassium chloride 10 mEq Cap-ER, See Instructions, 3 refills tamsulosin 0.4 mg Cap, 0.4 mg= 1 cap(s), Oral, qPM, 3 refills Therapeutic Multiple Vitamin Tab, See Instructions Allergies CeleBREX (Anxiety, Unknown) Immunizations Vaccine Date Status Comments influenza virus vaccine, inactivated 03/16/2023 Recorded influenza virus vaccine, inactivated - Not Given Postpone due to refusal influenza virus vaccine, inactivated 04/05/2022 Recorded SARS-CoV-2 (COVID-19) [id number] 04/05/2022 Recorded influenza virus vaccine, inactivated 03/01/2021 Recorded SARS-CoV-2 (COVID-19) mRNA BNT-162b2 vax 03/01/2021 Recorded 2023-01-13: [id number] SARS-CoV-2 (COVID-19) mRNA BNT-162b2 vax 08/08/2020 Recorded SARS-CoV-2 (COVID-19) mRNA BNT-162b2 vax 07/18/2020 Recorded pneumococcal 13-valent vaccine 03/09/2020 Recorded influenza virus vaccine, inactivated 03/09/2020 Recorded [facility] 01-11-2024 Note Nurse Consultation [place] Reason for Visit Here for lab draw and Dr Tao ordered PSA free and total also joni that for him. canceled the urine culture as patient had urine done at [facility] yesterday and was told it's fine Assessment/Plan Elevated prostate specific antigen (PSA) (R97.20: Elevated prostate specific antigen [PSA]) Hypomagnesemia (E83.42: Hypomagnesemia) Medications acetaminophen 325 mg Tab, 650 mg= 2 tab(s), Oral, q6hr, PRN amLODIPine 5 mg Tab, See Instructions amoxicillin 500 mg Cap, 500 mg= 1 cap(s), Oral, q12hr atorvastatin 40 mg Tab, 40 mg= 1 tab(s), Oral, Daily, 1 refills cyanocobalamin 1000 mcg Tab, 1000 mcg= 1 tab(s), Oral, Daily Glucophage XR 500 mg Tab-ER, 1000 mg= 2 tab(s), Oral, BID, 1 refills lisinopril 40 mg Tab, 40 mg= 1 tab(s), Oral, Daily magnesium oxide 400 mg Tab, 400 mg= 1 tab(s), Oral, BID metoprolol 25 mg ER Tab, 25 mg= 1 tab(s), Oral, Daily, 6 refills Misc DME Prescription omeprazole 20 mg Cap-DR, 20 mg= 1 cap(s), Oral, Daily potassium chloride 10 mEq Cap-ER, See Instructions, 3 refills tamsulosin 0.4 mg Cap, 0.4 mg= 1 cap(s), Oral, qPM Therapeutic Multiple Vitamin Tab, See Instructions Allergies CeleBREX (Anxiety, Unknown) Immunizations Vaccine Date Status Comments influenza virus vaccine, inactivated 03/16/2023 Recorded influenza virus vaccine, inactivated - Not Given Postpone due to refusal influenza virus vaccine, inactivated 04/05/2022 Recorded SARS-CoV-2 (COVID-19) [id number] 04/05/2022 Recorded influenza virus vaccine, inactivated 03/01/2021 Recorded SARS-CoV-2 (COVID-19) mRNA BNT-162b2 vax 03/01/2021 Recorded 2023-01-13: [id number] SARS-CoV-2 (COVID-19) mRNA BNT-162b2 vax 08/08/2020 Recorded SARS-CoV-2 (COVID-19) mRNA BNT-162b2 vax 07/18/2020 Recorded pneumococcal 13-valent vaccine 03/09/2020 Recorded influenza virus vaccine, inactivated 03/09/2020 Recorded [facility] 01-10-2024 Hospital Discharge instructions Patient Education 01/10/2024 08:58:30 Clean Intermittent Catheterization, Male Clean Intermittent Catheterization, Male Clean intermittent catheterization (CIC) is a procedure to remove urine from the bladder by placing a small, flexible tube (catheter) into the bladder though the urethra. The urethra is a tube in the body that carries urine from the bladder out of the body. CIC may be done when: You cannot completely empty your bladder on your own. This may be due to a blockage in the bladder or urethra. Your bladder leaks urine. This may happen when the muscles or nerves near the bladder are not working normally, so the bladder overflows. Your health care provider will show you how to perform CIC and will help you to become comfortable performing this procedure at home. Your health care provider will also help you to get the home care supplies that are needed for this procedure. Supplies needed: Germ-free (sterile), water-based lubricant. A container for urine collection. You may also use the toilet to dispose of urine from the catheter. A catheter. Your health care provider will determine the best size for you. ?Use this catheter size: Clean gloves. Soap and water. Towel. How to perform this procedure: Most people need CIC at least 4 times per day to adequately empty the bladder. Your health care provider will tell you how often you should perform CIC. Number of times per day to perform CIC: To perform CIC, follow these steps: 1.Wash your hands with soap and water. If soap and water are not available, use hand care attendant. 2.Clean your penis with soap and water. Dry the tip of your penis completely. 3.Prepare the supplies that you will use during the procedure. Open the catheter package and lubricant. 4.Get in a comfortable position. Possible positions include: Sitting on a toilet, a chair, or the edge of a bed. Standing near a toilet. Lying down with your head raised on pillows and your knees pointing to the ceiling. You may wish to place a waterproof mat or pad under you. 5.If you are using a urine collection container, position it between your legs. 6.Urinate, if you are able. 7.Put on gloves. 8.Apply lubricant to about 2 inches (5 cm) of the tip of the catheter. 9.Set the catheter down on a clean, dry surface within reach. 10.Gently stretch your penis out from your body. Pull back any skin that covers the end of your penis (foreskin). Clean the end of your penis with medicated sterile swabs as told by your health care provider. 11.Hold your penis upward at a 45 60 degree angle. This helps to straighten the urethra. 12.Slowly insert the lubricated catheter straight into your urethra until urine flows freely. This is usually about 6 8 inches (15 20 cm). 13.When urine starts to flow freely, insert the catheter 1 inch (3 cm) more. Allow urine to drain into the toilet or the urine collection container. 14.When urine stops flowing, slowly remove the catheter. 15.Note the color, amount, and odor of the urine. 16.Measure your urine and note the amount, if told by your health care provider. 17.Discard the urine in the toilet. 18.Clean your penis using soap and water. 19.Move the foreskin back in place, if applicable. 20.If you are using a single-use catheter, discard the catheter and supplies. 21.Wash your hands with soap and water. 22.If you are using a reusable catheter, follow package instructions about how to clean the catheter after each use. How often should I perform this procedure? Do CIC to empty your bladder every 4 6 hours or as often as told by your health care provider. If you have symptoms of too much urine in your bladder (overdistension) and you are not able to urinate, perform CIC. Symptoms of overdistension may include: ?Restlessness. ?Sweating or chills. ?Headache. ?Flushed or pale skin. ?Bloated lower abdomen. What are the risks? Generally, this is a safe procedure, however problems may occur, including: Infection. Injury to the urethra. Irritation of the urethra. Follow these instructions at home General instructions Drink enough fluid to keep your urine pale yellow. Dispose of a multiple use catheter when it becomes dry, brittle, or cloudy. This usually happens after you use the catheter for 1 week. Avoid caffeine. Caffeine may make you need to urinate more frequently and more urgently. When traveling, bring extra supplies with you in case of delays. Keep supplies with you in a place that you can access easily. If traveling by plane: ?Make sure that the lubricant in your carry-on bag is less than 3.4 ounces (100 mL). ?Use a single-use catheter. It may be difficult to clean a reusable catheter in a small bathroom. Take gprw-opy-utdpfno and prescription medicines only as told by your health care provider. Keep all follow-up visits as told by your health care provider. This is important. Contact a health care provider if you: Have difficulty performing CIC. Have urine leaking during CIC. Have: ?Dark or cloudy urine. ?Blood in your urine or in your catheter. ?A change in the smell of your urine or discharge. ?A burning feeling while you urinate. Feel nauseous or you vomit. Have pain in your abdomen, your back, or your sides below your ribs. Have swelling or redness around the opening of your urethra. Develop a rash or sores on your skin. Get help right away if you have: A fever. Symptoms that do not go away after 3 days. Symptoms that suddenly get worse. Severe pain. A decrease in the amount of urine that drains from your bladder. Summary Clean intermittent catheterization (CIC) is a procedure to remove urine from the bladder by placing a small, flexible tube (catheter) into the bladder though the urethra. Your health care provider will show you how to perform CIC and will help you to become comfortable performing this procedure at home. Most people need CIC at least 4 times per day to adequately empty the bladder. This information is not intended to replace advice given to you by your health care provider. Make sure you discuss any questions you have with your health care provider. Document Revised: 03/29/2022 Document Reviewed: 03/29/2022 [email or web address] Patient Education 2022 [employer] Follow Up Care 09/22/2023 13:04:49 With:EMMY REYNOLDS, Bryant Vogel, URL Address: [address] [place], [place] [id number]- When: Unknown Comments:6 mos [facility] 01-10-2024 Note Patient Education Urology Clean Intermittent Catheterization, Male Clean intermittent catheterization (CIC) is a procedure to remove urine from the bladder by placing a small, flexible tube (catheter) into the bladder though the urethra. The urethra is a tube in the body that carries urine from the bladder out of the body. CIC may be done when: ? You cannot completely empty your bladder on your own. This may be due to a blockage in the bladder or urethra. ? Your bladder leaks urine. This may happen when the muscles or nerves near the bladder are not working normally, so the bladder overflows. Your health care provider will show you how to perform CIC and will help you to become comfortable performing this procedure at home. Your health care provider will also help you to get the home care supplies that are needed for this procedure. Supplies needed: ? Germ-free (sterile), water-based lubricant. ? A container for urine collection. You may also use the toilet to dispose of urine from the catheter. ? A catheter. Your health care provider will determine the best size for you. ? Use this catheter size: ? Clean gloves. ? Soap and water. ? Towel. How to perform this procedure: Most people need CIC at least 4 times per day to adequately empty the bladder. Your health care provider will tell you how often you should perform CIC. ? Number of times per day to perform CIC: To perform CIC, follow these steps: 1. Wash your hands with soap and water. If soap and water are not available, use hand care attendant. 2. Clean your penis with soap and water. Dry the tip of your penis completely. 3. Prepare the supplies that you will use during the procedure. Open the catheter package and lubricant. 4. Get in a comfortable position. Possible positions include: ? Sitting on a toilet, a chair, or the edge of a bed. ? Standing near a toilet. ? Lying down with your head raised on pillows and your knees pointing to the ceiling. You may wish to place a waterproof mat or pad under you. 5. If you are using a urine collection container, position it between your legs. 6. Urinate, if you are able. 7. Put on gloves. 8. Apply lubricant to about 2 inches (5 cm) of the tip of the catheter. 9. Set the catheter down on a clean, dry surface within reach. 10. Gently stretch your penis out from your body. Pull back any skin that covers the end of your penis (foreskin). Clean the end of your penis with medicated sterile swabs as told by your health care provider. 11. Hold your penis upward at a 45?60 degree angle. This helps to straighten the urethra. 12. Slowly insert the lubricated catheter straight into your urethra until urine flows freely. This is usually about 6?8 inches (15?20 cm). 13. When urine starts to flow freely, insert the catheter 1 inch (3 cm) more. Allow urine to drain into the toilet or the urine collection container. 14. When urine stops flowing, slowly remove the catheter. 15. Note the color, amount, and odor of the urine. 16. Measure your urine and note the amount, if told by your health care provider. 17. Discard the urine in the toilet. 18. Clean your penis using soap and water. 19. Move the foreskin back in place, if applicable. 20. If you are using a single-use catheter, discard the catheter and supplies. 21. Wash your hands with soap and water. 22. If you are using a reusable catheter, follow package instructions about how to clean the catheter after each use. How often should I perform this procedure? ? Do CIC to empty your bladder every 4?6 hours or as often as told by your health care provider. ? If you have symptoms of too much urine in your bladder (overdistension) and you are not able to urinate, perform CIC. Symptoms of overdistension may include: ? Restlessness. ? Sweating or chills. ? Headache. ? Flushed or pale skin. ? Bloated lower abdomen. What are the risks? Generally, this is a safe procedure, however problems may occur, including: ? Infection. ? Injury to the urethra. ? Irritation of the urethra. Follow these instructions at home General instructions ? Drink enough fluid to keep your urine pale yellow. ? Dispose of a multiple use catheter when it becomes dry, brittle, or cloudy. This usually happens after you use the catheter for 1 week. ? Avoid caffeine. Caffeine may make you need to urinate more frequently and more urgently. ? When traveling, bring extra supplies with you in case of delays. Keep supplies with you in a place that you can access easily. If traveling by plane: ? Make sure that the lubricant in your carry-on bag is less than 3.4 ounces (100 mL). ? Use a single-use catheter. It may be difficult to clean a reusable catheter in a small bathroom. ? Take wofx-ocx-xsqbhlm and prescription medicines onl (more content not included)... [facility] 12-31-2023 Note Discharge Summary Admission and Discharge Information Admit Date/Time:12/29/2023 15:45 Admitting Physician - Artemio Olivares DO Consulting Physician - Ok REYNOLDS, [facility] Admitting Diagnoses: Discharge Diagnoses 1. Hypomagnesemia, 12/29/2023 2. UTI (urinary tract infection), 12/29/2023 3. Hypertensive urgency, 12/29/2023 4. Alcohol abuse, 12/29/2023 5. Anemia, 12/29/2023 6. HLD (hyperlipidemia), 12/29/2023 7. Non-insulin dependent type 2 diabetes mellitus, 12/29/2023 8. Neurogenic bladder disorder, 12/30/2023 9. BPH with urinary obstruction, 12/29/2023 10. Chronic GERD, 12/29/2023 11. Depression, 12/29/2023 12. Obesity, 12/29/2023 13. On deep vein thrombosis (DVT) prophylaxis, 12/29/2023 Please refer to my progress note for in-depth information regarding each individual diagnosis Patient had a quicker than anticipated recovery. Procedure History Arthroscopy, back surgery, Carpal tunnel release, hand and elbow surgery LEFT, Hand tendon repaired, Spinal fusion. Hospital Course 68 yr old. male with PMH of chronic alcohol abuse, HTN, HLD, NIDDMT2, BPH, GERD, depression, obesity. -Patient was sent to the ED due to hypomagnesemia by his PCP. He does admit to drinking 6?10 beers daily every day, he states he is unaware if he has any withdrawal with absenteeism as he rarely goes w/o some type of alcohol intake. Hypomagnesemia -Multifactorial: 6-10 beers daily, HCTZ, glipizide use -No nystagmus/tetany on exam -12 lead ECG: RSR, non acute -Replete IV mag until level 2.0 -Increase po mag to 400mg BID -Hold HCTZ, glipizide -Urine mag level - pending (send out - result to PCP office) -FEMg = [(UMg x PCr) / (PMg x UCr x 0.7)] x 100 (if > 2 from diuretic tx.) -PTH - pending (send out - result to PCP office) -Pt. educated on importance of mag dosing and compliance -Trend labs Consult nephro: -Hypomag 2/2 chronic etoh, malnutrition -> stop etoh, encourage protein fortified nutrition -May d/c from nephro standpoint w/ f/u in nephro clinic. UTI - complicated 2/2 chronic self cath -Urine cx. - prelim -> 75k streptococcus sp. possible enterococcus or grp. B strep per micro -D/W Dr. Grace PCP - agree w/ levaquin as pt. is refusing to stay and states he will leave AMA -IV ceftriaxone - 12/28 -> transition to levaquin x 10days - d/w Dr. Grace via phone who will follow culture on tuesday and make atb adjustments as needed. Alcohol abuse (F10.10: Alcohol abuse, uncomplicated) -Pt. admits to 6-10 beers daily, denies drug use -Last etoh use - 2 beers prior to arrival -Pt. educated on need to decrease intake w/ goal of cessation -CIWA protocol/supplements - rx. sent -Declined SW consult Anemia (D64.9: Anemia, unspecified) -2/2 B12 def -Baseline hgb. level - 05-18 -Anemia panel -> supplement -Outpt. f/u w/ GI for possible scopes - defer to PCP Hypertensive urgency: -DC HCTZ -Increase lisinopril to 40mg daily -Pt. educated to monitor blood pressure daily and record in a log -Patient threatening to leave AMA, he stated I am not spending 1 more fucking night in [facility] with the [facility] food and lack of care , he is cursing at staff, belligerent however after reviewing his levels, plan of care with him, he does calm down. I spoke w/ Dr. Grace PCP and he is agreeable to monitor urine cx. I explained this to the patient who then became very agreeable to stay and rec. his IV mag. He is aware that he needs to call Dr. Grace's office on Tuesday to get his final urine results and will receive antibiotic adjustments if warranted. Currently patient is pleasant and cooperative. -Patient states that all admitting symptoms have significantly improved and/or resolved. Patient is eating and drinking without complaints, denies being SOB, chest pain, pressure, palpitations or difficulty with voiding. Patient is eager to be discharged to home. --Other chronic medical conditions as outlined in note. Refer to d/c plan below: -Case reviewed and discussed with Dr. Olivares who is in agreement with current d/c plan. I spent a lengthy amount of time with the patient and/or family (teach back method) reviewing discharge instructions, medications, medication use. Patient to follow-up with PCP and specialty providers as scheduled on discharge. Patient being discharged in medically/hemodynamically stable cond. with instructions to return to the hospital if symptoms worsen or recur. This report was transcribed using voice recognition software. Every effort was made to ensure accuracy, however, inadvertently computerized glass edger mistakes may be present. Significant Findings No qualifying data available. Services Consulted Consult to Nephrology - Ordered -- 12/29/23 15:09:00 EDT, Refractory hypomagnesemia, REQUESTED BY DR. GRACE, Consult and Co-manage Consult to Nephrology - Ordered -- 12/29/23 15:22:00 EDT, recurrent hypomag., renal wasting, Consult and Co-manage Consult to Social Servi (more content not included)... [facility] Comment on above: Result Comment: Elec tronically Signed By: Dacia MEYER\.br\Date and Time Signed: 12/30/23 12:31 EDT\.br\Electronically Co-Signed By: Dacia MEYER\.br\Date and Time Co-Signed: 12/30/23 12:32 EDT\.br\Electronically Co-Signed By: Artemio Olivares DO\.br\Date and Time Co-Signed: 12/31/23 07:05 EDT 12-30-2023 Note Consultation Note Patient: ALICJA REYES Age: 68 years Sex: Male : 1955 Associated Diagnoses: None Author: Hellen Luna CNP Basic Information Requesting Provider: Hospitalist Reason For Request: Hypomagnesemia management History of Present Illness 68-year-old WM with past medical history of EtOH abuse, BPH with urinary obstruction, DM, diabetic neuropathy, elevated PSA, hypotonic neurogenic bladder, GERD, hypokalemia, hypomagnesemia, prostatic intraepithelial neoplasia, HTN, HLD, urinary retention self caths 2-3 times a day, recurrent UTI, and murmur presented to the ED with a magnesium level of 0.7 mg/dL. He states that he usually drinks 6-10 beers per day and does not eat the healthiest. He does self cath himself 2-3 times a day. He had a cystoscopy on 11/28/[address] Tao that displayed hypotonic neurogenic bladder, minimal prostatic obstruction, and poor bladder function. PSA was 6.1 in March 2023. His low magnesium started with a UTI in June 2023. PCP placed him on Mag-Ox 1200 mg 3 times daily. He states he decreased the dose to 1200 mg daily because he was feeling fine. Nephrology has been consulted for hypomagnesemia management. Review of Systems Constitutional: Negative. Eye: Negative. Ear/Nose/Mouth/Throat: Negative. Respiratory: Negative. Cardiovascular: Negative. Gastrointestinal: Negative. Genitourinary: Negative. Hematology/Lymphatics: Negative. Endocrine: Negative. Immunologic: Negative. Musculoskeletal: Negative. Integumentary: Negative. Neurologic: Negative. Psychiatric: Negative. All other systems are negative Health Status Allergies: Allergic Reactions (Selected) Severity Not Documented CeleBREX- Unknown and anxiety., Allergies (1) Active Severity Reaction CeleBREX Unknown, Anxiety Current medications: (Selected) Inpatient Medications Ordered Dextrose 50% Soln-IV: 50 mL, Soln-IV, IV Push, Once PRN Blood glucose, Routine, Start date 12/29/23 16:15:00 EDT HumaLOG Sliding Scale: 0-10 Unit(s), Injection-Insulin, SubCutaneous, QIDACHS, Routine, Start date 12/29/23 16:30:00 EDT LORazepam 1 mg Tab: 1 mg = 1 tab(s), Tab, Oral, QID PRN Anxiety, Routine, Start date 12/29/23 15:42:00 EDT, 12/29/23 15:42:00 EDT LORazepam 2 mg/mL Inj: 1 mg = 0.5 mL, Injection, IV Push, q1hr PRN Anxiety, Routine, Start date 12/29/23 15:42:00 EDT, 12/29/23 15:42:00 EDT Therapeutic Multiple Vitamin Tab: 1 tab(s), Tab, Oral, Daily, STAT, Start date 12/29/23 15:42:00 EDT Zofran 4 mg/2 mL Injection: 4 mg = 2 mL, Injection, IV Push, q6hr PRN Nausea, Routine, Start date 12/29/23 15:45:00 EDT, 12/29/23 15:45:00 EDT acetaminophen 325 mg Tab: 650 mg = 2 tab(s), Tab, Oral, q6hr PRN Pain, Routine, Start date 12/29/23 15:45:00 EDT, 12/29/23 15:45:00 EDT ceftriaxone additive + Sodium Chloride 0.9% intravenous solution 50 mL: 1,000 mg = 1 EA, Injection, IV Piggyback, Daily, NOW, Start date 12/29/23 16:30:00 EDT, 100 mL/hr, Infuse over 30 minute(s) enoxaparin 40 mg/0.4 mL SC Norma: 40 mg = 0.4 mL, Injection, SubCutaneous, Daily for 30 day(s), Stop date 01/29/24 8:59:00 EDT, Routine, Start date 12/30/23 9:00:00 EDT, 12/29/23 15:45:00 EDT folic acid 1 mg Tab: 1 mg = 1 tab(s), Tab, Oral, Daily, Routine, Start date 12/30/23 9:00:00 EDT, 12/29/23 15:42:00 EDT hydrALAZINE 20 mg/mL Inj: 10 mg = 0.5 mL, Injection, IV Push, q4hr PRN Other (see comment), Routine, Start date 12/29/23 16:17:00 EDT, For sbp > 160 magnesium oxide 400 mg Tab: 400 mg = 1 tab(s), Tab, Oral, BID, NOW, Start date 12/29/23 15:36:00 EDT, 12/29/23 15:36:00 EDT thiamine 100 mg Tab: 100 mg = 1 tab(s), Tab, Oral, Daily, Routine, Start date 12/30/23 9:00:00 EDT, 12/29/23 15:42:00 EDT Prescriptions Prescribed Glucophage XR 500 mg Tab-ER: 1,000 mg = 2 tab(s), Oral, BID, # 360 tab(s), Refills(s) 1, Pharmacy: [facility], 174, cm, 07/26/23 10:21:00 EST, Height/Length Dosing, 104.8, kg, 07/26/23 10:21:00 EST, Weight Dosing [facility] Prescription: [facility] Prescription, See Instructions, 1 kit(s), 0, One Touch Ultra 2 glucose meter kit Use to tests sugars daily E11.9, [facility], Supply, 174.5, cm, 05/26/23 9:14:00 EST, Height/Length Dosing, 109.1, kg, 05/26/23 9:14:00... Misc DME Prescription: Misc DME Prescription, See Instructions, 100 Unspecified/Unknown, 3, Alcohol prep pads Use to test blood sugars daily Dx E11.9, [facility], Supply, 174.5, cm, 05/26/23 9:14:00 EST, Height/Length Dosing, 109.1, kg, 05/26/23 9:1... Misc DME Prescription: [facility] Prescription, See Instructions, 100 lancet(s), 3, Soft click lancets Use to test blood sugars once a day Dx E11.9, [facility], Supply, 174.5, cm, 05/26/23 9:14:00 EST, Height/Length Dosing, 109.1, kg, 05/26/23 9:14:00... [facility] Prescription: [facility] Prescription, See Instructions, 100 strip(s), 3, One touch ultra 2 test strips Use to tests sugars once a day Dx E (more content not included)... [facility] Comment on above: Result Comment: Elec tronically Signed By: Hellen Luna CNP\.br\Date and Time Signed: 12/29/23 18:22 EDT\.br\Electronically Co-Signed By: Ramos Euceda MD\.br\Date and Time Co-Signed: 12/30/23 16:58 EDT 12-30-2023 Hospital Discharge instructions Patient Education 12/30/2023 12:37:57 Hypomagnesemia Hypomagnesemia Hypomagnesemia is a condition in which the level of magnesium in the blood is too low. Magnesium is a mineral that is found in many foods. It is used in many different processes in the body. Hypomagnesemia can affect every organ in the body. In severe cases, it can cause life-threatening problems. What are the causes? This condition may be caused by: Not getting enough magnesium in your diet or not having enough healthy foods to eat (malnutrition). Problems with magnesium absorption in the intestines. Dehydration. Excessive use of alcohol. Vomiting. Severe or long-term (chronic) diarrhea. Some medicines, including medicines that make you urinate more often (diuretics). Certain diseases, such as kidney disease, diabetes, celiac disease, and overactive thyroid. What are the signs or symptoms? Symptoms of this condition include: Loss of appetite, nausea, and vomiting. Involuntary shaking or trembling of a body part (tremor). Muscle weakness or tingling in the arms and legs. Sudden tightening of muscles (muscle spasms). Confusion. Psychiatric issues, such as: ?Depression and irritability. ?Psychosis. A feeling of fluttering of the heart (palpitations). Seizures. These symptoms are more severe if magnesium levels drop suddenly. How is this diagnosed? This condition may be diagnosed based on: Your symptoms and medical history. A physical exam. Blood and urine tests. How is this treated? Treatment depends on the cause and the severity of the condition. It may be treated by: Taking a magnesium supplement. This can be taken in pill form. If the condition is severe, magnesium is usually given through an IV. Making changes to your diet. You may be directed to eat foods that have a lot of magnesium, such as green leafy vegetables, peas, beans, and nuts. Not drinking alcohol. If you are struggling not to drink, ask your health care provider for help. Follow these instructions at home: Eating and drinking Make sure that your diet includes foods with magnesium. Foods that have a lot of magnesium in them include: ?Green leafy vegetables, such as spinach and broccoli. ?Beans and peas. ?Nuts and seeds, such as almonds and sunflower seeds. ?Whole grains, such as whole grain bread and fortified cereals. Drink fluids that contain salts and minerals (electrolytes), such as sports drinks, when you are active. Do not drink alcohol. General instructions Take bohz-jeq-ktqtpbx and prescription medicines only as told by your health care provider. Take magnesium supplements as directed if your health care provider tells you to take them. Have your magnesium levels monitored as told by your health care provider. Keep all follow-up visits. This is important. Contact a health care provider if: You get worse instead of better. Your symptoms return. Get help right away if: You develop severe muscle weakness. You have trouble breathing. You feel that your heart is racing. These symptoms may represent a serious problem that is an emergency. Do not wait to see if the symptoms will go away. Get medical help right away. Call your local emergency services (911 in the [place] Do not drive yourself to the hospital. Summary Hypomagnesemia is a condition in which the level of magnesium in the blood is too low. Hypomagnesemia can affect every organ in the body. Treatment may include eating more foods that contain magnesium, taking magnesium supplements, and not drinking alcohol. Have your magnesium levels monitored as told by your health care provider. This information is not intended to replace advice given to you by your health care provider. Make sure you discuss any questions you have with your health care provider. Document Revised: 10/20/2021 Document Reviewed: 10/20/2021 [employer] Patient Education 2022 [employer]. 12/30/2023 12:37:57 Hypomagnesemia Hypomagnesemia Hypomagnesemia is a condition in which the level of magnesium in the blood is too low. Magnesium is a mineral that is found in many foods. It is used in many different processes in the body. Hypomagnesemia can affect every organ in the body. In severe cases, it can cause life-threatening problems. What are the causes? This condition may be caused by: Not getting enough magnesium in your diet or not having enough healthy foods to eat (malnutrition). Problems with magnesium absorption in the intestines. Dehydration. Excessive use of alcohol. Vomiting. Severe or long-term (chronic) diarrhea. Some medicines, including medicines that make you urinate more often (diuretics). Certain diseases, such as kidney disease, diabetes, celiac disease, and overactive thyroid. What are the signs or symptoms? Symptoms of this condition include: Loss of appetite, nausea, and vomiting. Involuntary shaking or trembling of a body part (tremor). Muscle weakness or tingling in the arms and legs. Sudden tightening of muscles (muscle spasms). Confusion. Psychiatric issues, such as: ?Depression and irritability. ?Psychosis. A feeling of fluttering of the heart (palpitations). Seizures. These symptoms are more severe if magnesium levels drop suddenly. How is this diagnosed? This condition may be diagnosed based on: Your symptoms and medical history. A physical exam. Blood and urine tests. How is this treated? Treatment depends on the cause and the severity of the condition. It may be treated by: Taking a magnesium supplement. This can be taken in pill form. If the condition is severe, magnesium is usually given through an IV. Making changes to your diet. You may be directed to eat foods that have a lot of magnesium, such as green leafy vegetables, peas, beans, and nuts. Not drinking alcohol. If you are struggling not to drink, ask your health care provider for help. Follow these instructions at home: Eating and drinking Make sure that your diet includes foods with magnesium. Foods that have a lot of magnesium in them include: ?Green leafy vegetables, such as spinach and broccoli. ?Beans and peas. ?Nuts and seeds, such as almonds and sunflower seeds. ?Whole grains, such as whole grain bread and fortified cereals. Drink fluids that contain salts and minerals (electrolytes), such as sports drinks, when you are active. Do not drink alcohol. General instructions Take kgas-axu-kvlnyvm and prescription medicines only as told by your health care provider. Take magnesium supplements as directed if your health care provider tells you to take them. Have your magnesium levels monitored as told by your health care provider. Keep all follow-up visits. This is important. Contact a health care provider if: You get worse instead of better. Your symptoms return. Get help right away if: You develop severe muscle weakness. You have trouble breathing. You feel that your heart is racing. These symptoms may represent a serious problem that is an emergency. Do not wait to see if the symptoms will go away. Get medical help right away. Call your local emergency services (911 in the [place] Do not drive yourself to the hospital. Summary Hypomagnesemia is a condition in which the level of magnesium in the blood is too low. Hypomagnesemia can affect every organ in the body. Treatment may include eating more foods that contain magnesium, taking magnesium supplements, and not drinking alcohol. Have your magnesium levels monitored as told by your health care provider. This information is not intended to replace advice given to you by your health care provider. Make sure you discuss any questions you have with your health care provider. Document Revised: 10/20/2021 Document Reviewed: 10/20/2021 [employer] Patient Education 2022 [employer] 12/30/2023 12:30:15 How to Take Your Blood Pressure, Gwmd-nw-Zhqe How to Take Your Blood Pressure Blood pressure measures how strongly your blood is pressing against the marina of your arteries. Arteries are blood vessels that carry blood from your heart throughout your body. You can take your blood pressure at home with a machine. You may need to check your blood pressure at home: To check if you have high blood pressure (hypertension). To check your blood pressure over time. To make sure your blood pressure medicine is working. Supplies needed: Blood pressure machine, or monitor. A chair to sit in. This should be a chair where you can sit upright with your back supported. Do not sit on a soft couch or an armchair. Table or desk. Small notebook. Pencil or pen. How to prepare Avoid these things for 30 minutes before checking your blood pressure: Having drinks with caffeine in them, such as coffee or tea. Drinking alcohol. Eating. Smoking. Exercising. Do these things five minutes before checking your blood pressure: Go to the bathroom and pee (urinate). Sit in a chair. Be quiet. Do not talk. How to take your blood pressure Follow the instructions that came with your machine. If you have a digital blood pressure monitor, these may be the instructions: 1.Sit up straight. 2.Place your feet on the floor. Do not cross your ankles or legs. 3.Rest your left arm at the level of your heart. You may rest it on a table, desk, or chair. 4.Pull up your shirt sleeve. 5.Wrap the blood pressure cuff around the upper part of your left arm. The cuff should be 1 inch (2.5 cm) above your elbow. It is best to wrap the cuff around bare skin. 6.Fit the cuff snugly around your arm, but not too tightly. You should be able to place only one finger between the cuff and your arm. 7.Place the cord so that it rests in the bend of your elbow. 8.Press the power button. 9.Sit quietly while the cuff fills with air and loses air. 10.Write down the numbers on the screen. 11.Wait 2 3 minutes and then repeat steps 1 10. What do the numbers mean? Two numbers make up your blood pressure. The first number is called systolic pressure. The second is called diastolic pressure. An example of a blood pressure reading is 120 over 80 (or 120/80). If you are an adult and do not have a medical condition, use this guide to find out if your blood pressure is normal: Normal First number: below 120. Second number: below 80. Elevated First number: 120 129. Second number: below 80. Hypertension stage 1 First number: 130 139. Second number: 80 89. Hypertension stage 2 First number: 140 or above. Second number: 90 or above. Your blood pressure is above normal even if only the first or only the second number is above normal. Follow these instructions at home: Medicines Take aeql-oxt-rgnvssf and prescription medicines only as told by your doctor. Tell your doctor if your medicine is causing side effects. General instructions Check your blood pressure as often as your doctor tells you to. Check your blood pressure at the same time every day. Take your monitor to your next doctor's appointment. Your doctor will: ?Make sure you are using it correctly. ?Make sure it is working right. Understand what your blood pressure numbers should be. Keep all follow-up visits. General tips You will need a blood pressure machine or monitor. Your doctor can suggest a monitor. You can buy one at a drugstore or online. When choosing one: Choose one with an arm cuff. Choose one that wraps around your upper arm. Only one finger should fit between your arm and the cuff. Do not choose one that measures your blood pressure from your wrist or finger. Where to find more information [employer] [employer]: www.heart.org Contact a doctor if: Your blood pressure keeps being high. Your blood pressure is suddenly low. Get help right away if: Your first blood pressure number is higher than 180. Your second blood pressure number is higher than 120. These symptoms may be an emergency. Do not wait to see if the symptoms will go away. Get help right away. Call 911. Summary Check your blood pressure at the same time every day. Avoid caffeine, alcohol, smoking, and exercise for 30 minutes before checking your blood pressure. Make sure you understand what your blood pressure numbers should be. This information is not intended to replace advice given to you by your health care provider. Make sure you discuss any questions you have with your health care provider. Document Revised: 02/04/2022 Document Reviewed: 02/04/2022 [employer] Patient Education 2022 [employer] 12/30/2023 12:30:15 Form - Blood Pressure Record Sheet Blood Pressure Record Sheet To take your blood pressure, you will need a blood pressure machine. You may be prescribed one, or you can buy a blood pressure machine (blood pressure monitor) at your clinic, drug store, or online. When choosing one, look for these features: An automatic monitor that has an arm cuff. A cuff that wraps snugly, but not too tightly, around your upper arm. You should be able to fit only one finger between your arm and the cuff. A device that stores blood pressure reading results. Do not choose a monitor that measures your blood pressure from your wrist or finger. Follow your health care provider's instructions for how to take your blood pressure. To use this form: Get one reading in the morning (a.m.) before you take any medicines. Get one reading in the evening (p.m.) before supper. Take at least two readings with each blood pressure check. This makes sure the results are correct. Wait 1 2 minutes between measurements. Write down the results in the spaces on this form. Repeat this once a week, or as told by your health care provider. Make a follow-up appointment with your health care provider to discuss the results. Blood pressure log Date: a.m. (1st reading) (2nd reading) p.m. (1st reading) (2nd reading) Date: a.m. (1st reading) (2nd reading) p.m. (1st reading) (2nd reading) Date: a.m. (1st reading) (2nd reading) p.m. (1st reading) (2nd reading) Date: a.m. (1st reading) (2nd reading) p.m. (1st reading) (2nd reading) Date: a.m. (1st reading) (2nd reading) p.m. (1st reading) (2nd reading) This information is not intended to replace advice given to you by your health care provider. Make sure you discuss any questions you have with your health care provider. Document Revised: 02/04/2022 Document Reviewed: 02/04/2022 [employer] Patient Education 2022 [employer] 12/30/2023 11:53:55 Urinary Tract Infection, Adult, Sxys-sf-Qagl Urinary Tract Infection, Adult A urinary tract infection (UTI) is an infection of any part of the urinary tract. The urinary tract includes: The kidneys. The ureters. The bladder. The urethra. These organs make, store, and get rid of pee (urine) in the body. What are the causes? This infection is caused by germs (bacteria) in your genital area. These germs grow and cause swelling (inflammation) of your urinary tract. What increases the risk? The following factors may make you more likely to develop this condition: Using a small, thin tube (catheter) to drain pee. Not being able to control when you pee or poop (incontinence). Being female. If you are female, these things can increase the risk: ?Using these methods to prevent : ?A medicine that kills sperm (spermicide). ?A device that blocks sperm (diaphragm). ?Having low levels of a female hormone (estrogen). ?Being . You are more likely to develop this condition if: You have genes that add to your risk. You are sexually active. You take antibiotic medicines. You have trouble peeing because of: ?A prostate that is bigger than normal, if you are male. ?A blockage in the part of your body that drains pee from the bladder. ?A kidney stone. ?A nerve condition that affects your bladder. ?Not getting enough to drink. ?Not peeing often enough. You have other conditions, such as: ?Diabetes. ?A weak disease-fighting system (immune system). ?Sickle cell disease. ?Gout. ?Injury of the spine. What are the signs or symptoms? Symptoms of this condition include: Needing to pee right away. Peeing small amounts often. Pain or burning when peeing. Blood in the pee. Pee that smells bad or not like normal. Trouble peeing. Pee that is cloudy. Fluid coming from the vagina, if you are female. Pain in the belly or lower back. Other symptoms include: Vomiting. Not feeling hungry. Feeling mixed up (confused). This may be the first symptom in older adults. Being tired and grouchy (irritable). A fever. Watery poop (diarrhea). How is this treated? Taking antibiotic medicine. Taking other medicines. Drinking enough water. In some cases, you may need to see a specialist. Follow these instructions at home: Medicines Take bzwv-zfs-tylvcvy and prescription medicines only as told by your doctor. If you were prescribed an antibiotic medicine, take it as told by your doctor. Do not stop taking it even if you start to feel better. General instructions Make sure you: ?Pee until your bladder is empty. ?Do not hold pee for a long time. ?Empty your bladder after sex. ?Wipe from front to back after peeing or pooping if you are a female. Use each tissue one time when you wipe. Drink enough fluid to keep your pee pale yellow. Keep all follow-up visits. Contact a doctor if: You do not get better after 1 2 days. Your symptoms go away and then come back. Get help right away if: You have very bad back pain. You have very bad pain in your lower belly. You have a fever. You have chills. You feeling like you will vomit or you vomit. Summary A urinary tract infection (UTI) is an infection of any part of the urinary tract. This condition is caused by germs in your genital area. There are many risk factors for a UTI. Treatment includes antibiotic medicines. Drink enough fluid to keep your pee pale yellow. This information is not intended to replace advice given to you by your health care provider. Make sure you discuss any questions you have with your health care provider. Document Revised: 01/02/2021 Document Reviewed: 01/02/2021 [employer] Patient Education 2022 [employer]. 12/30/2023 11:53:55 Hypomagnesemia Hypomagnesemia Hypomagnesemia is a condition in which the level of magnesium in the blood is too low. Magnesium is a mineral that is found in many foods. It is used in many different processes in the body. Hypomagnesemia can affect every organ in the body. In severe cases, it can cause life-threatening problems. What are the causes? This condition may be caused by: Not getting enough magnesium in your diet or not having enough healthy foods to eat (malnutrition). Problems with magnesium absorption in the intestines. Dehydration. Excessive use of alcohol. Vomiting. Severe or long-term (chronic) diarrhea. Some medicines, including medicines that make you urinate more often (diuretics). Certain diseases, such as kidney disease, diabetes, celiac disease, and overactive thyroid. What are the signs or symptoms? Symptoms of this condition include: Loss of appetite, nausea, and vomiting. Involuntary shaking or trembling of a body part (tremor). Muscle weakness or tingling in the arms and legs. Sudden tightening of muscles (muscle spasms). Confusion. Psychiatric issues, such as: ?Depression and irritability. ?Psychosis. A feeling of fluttering of the heart (palpitations). Seizures. These symptoms are more severe if magnesium levels drop suddenly. How is this diagnosed? This condition may be diagnosed based on: Your symptoms and medical history. A physical exam. Blood and urine tests. How is this treated? Treatment depends on the cause and the severity of the condition. It may be treated by: Taking a magnesium supplement. This can be taken in pill form. If the condition is severe, magnesium is usually given through an IV. Making changes to your diet. You may be directed to eat foods that have a lot of magnesium, such as green leafy vegetables, peas, beans, and nuts. Not drinking alcohol. If you are struggling not to drink, ask your health care provider for help. Follow these instructions at home: Eating and drinking Make sure that your diet includes foods with magnesium. Foods that have a lot of magnesium in them include: ?Green leafy vegetables, such as spinach and broccoli. ?Beans and peas. ?Nuts and seeds, such as almonds and sunflower seeds. ?Whole grains, such as whole grain bread and fortified cereals. Drink fluids that contain salts and minerals (electrolytes), such as sports drinks, when you are active. Do not drink alcohol. General instructions Take wfql-grf-warutdl and prescription medicines only as told by your health care provider. Take magnesium supplements as directed if your health care provider tells you to take them. Have your magnesium levels monitored as told by your health care provider. Keep all follow-up visits. This is important. Contact a health care provider if: You get worse instead of better. Your symptoms return. Get help right away if: You develop severe muscle weakness. You have trouble breathing. You feel that your heart is racing. These symptoms may represent a serious problem that is an emergency. Do not wait to see if the symptoms will go away. Get medical help right away. Call your local emergency services (911 in the [place] Do not drive yourself to the hospital. Summary Hypomagnesemia is a condition in which the level of magnesium in the blood is too low. Hypomagnesemia can affect every organ in the body. Treatment may include eating more foods that contain magnesium, taking magnesium supplements, and not drinking alcohol. Have your magnesium levels monitored as told by your health care provider. This information is not intended to replace advice given to you by your health care provider. Make sure you discuss any questions you have with your health care provider. Document Revised: 10/20/2021 Document Reviewed: 10/20/2021 [employer] Patient Education 2022 Extended Care Information Network. Follow Up Care 12/29/2023 13:34:47 With:Ramos Euceda [facility] [address] [place] [address]- Business (1) When: Unknown Comments:Call for followup appointment in [place] office With:Jose Grace Address: [address] [place] [address]- Business (2) When:01/05/2024 07:45:00 [facility] 12-30-2023 Note Interdisciplinary No te - PT Order received, chart reviewed. Attempted PT evaluation at 1141 on 12/30/23. Upon attempt, pt. is speaking with Dacia Bañuelos AGACNP-BP and threatening to leave AMA. Dacia instructs PT to hold evaluation at this time. Please re-order PT evaluation if deemed necessary in the future. No PT charges. [facility] 12-29-2023 Evaluation + Plan note Extrac ranjan from: Title:HypoMg Author:Hellen Luna CNP Date:12/29/23 Impression and Plan 1. Hypomagnesemia likely due to chronic alcohol abuse and malnutrition. He states that his low magnesium started in June 2023 after he had a UTI. His PCP started him on Mag-Ox 1200 mg 3 times daily. He states that he decreased his Mag-Ox dose to 1200 mg daily because he was feeling fine. Initial magnesium level was 0.9 and current magnesium level 0.7. He is currently receiving IV magnesium 4 g. -Stop EtOH. -Encourage protein fortified nutrition. -Replace magnesium as needed. -PCR and urine mag ordered per primary team. 2. Alcoholism: Discussed with him stopping his alcohol use. He states that he would rather than stop drinking alcohol. He currently drinks 6-10 beers per day. -Consult case management for rehabilitation. -CIWA protocol. 3. Hypotonic neurogenic bladder: He self caths himself 2-3 times a day. He is managed in the outpatient setting by Dr. Tao, urology. He had a cystoscopy on 11/28/2023 that displayed hypotonic neurogenic bladder, minimal prostatic obstruction, and poor bladder function. -Manage per primary team. Extracted from: Title:ED Note Author:Ronny Cartagena DO Date: 1. Hypomagnesemia (E83.42: H ypomagnesemia) 2. Hypertensive urgency (I16.0: Hypertensive urgency) 3. Alcohol abuse (F10.10: Alcohol abuse, uncomplicated) 4. Anemia (D64.9: Anemia, unspecified) 5. HLD (hyperlipidemia) (E78.5: Hyperlipidemia, unspecified) 6. Non-insulin dependent type 2 diabetes mellitus (E11.9: Type 2 diabetes mellitus without complications) 7. BPH with urinary obstruction (N40.1: Benign prostatic hyperplasia with lower urinary tract symptoms) 8. Chronic GERD (K21.9: Gastro-esophageal reflux disease without esophagitis) 9. Depression (F32.A: Depression, unspecified) 10. Obesity (E66.9: Obesity, unspecified) 11. On deep vein thrombosis (DVT) prophylaxis (Z79.899: Other exterminator helper (current) drug therapy) Orders: magnesium sulfate + Generic Diluent 100 mL, 4 gram = 100 mL, IV Piggyback, Once, Stop date 12/29/23 15:01:00 EDT, STAT, Start date 12/29/23 15:01:00 EDT, 25 mL/hr, Infuse over 4 hour(s), 12/29/23 15:01:00 EDT Basic Metabolic Panel CBC w/ Auto Diff Consult to Nephrology ECG 12 Lead Adult ED Physician consult Hospitalist for continued care eGFR Extra Blue Tube Extra SST Tube Ferritin Folate Level Iron Level Lactate Dehydrogenase Magnesium Level Phosphorus Level Reticulocyte Count TIBC Calculated Vitamin B12 Level Extracted from: Title:Admission H & P Author:Deysi MEYER enee Date:12/29/23 Awaiting med rec for all dx. 1. Hypomagnesemia (E83.42: Hypomagnesemia) Multifactorial: 6-10 beers daily, HCTZ, glipizide use -No nystagmus/tetany on exam -12 lead ECG: RSR, non acute -Replete IV mag until level 2.0 -Increase po mag to 800mg daily -Hold HCTZ, glipizide -FEMg = [(UMg x PCr) / (PMg x UCr x 0.7)] x 100 (if > 2 from diuretic tx.) -Urine mag level - pending -PTH - pending (send out - result to PCP office - Dr. Ruiz sung) -Pt. educated on importance of mag dosing and compliance -Trend labs Consult nephro: pending 2. Hypertensive urgency (I16.0: Hypertensive urgency) -IV hydralazine prn 3. Alcohol abuse (F10.10: Alcohol abuse, uncomplicated) Pt. admits to 6-10 beers daily, denies drug use -Last etoh use - 2 beers prior to arrival -CIWA protocol/supplements 4. Anemia (D64.9: Anemia, unspecified) Baseline hgb. level - 12-13 -Anemia panel - pending -Avoid heparin products -No acute bleeding noted, hemodynamically stable -Trend labs -Outpt. f/u w/ GI for possible scopes - defer to PCP 5. HLD (hyperlipidemia) (E78.5: Hyperlipidemia, unspecified) 6. Non-insulin dependent type 2 diabetes mellitus (E11.9: Type 2 diabetes mellitus without complications) Accuchecks AC/HS w/ SSI prn -Home regimen: awaiting med rec -Hypoglycemic protocol 7. BPH with urinary obstruction (N40.1: Benign prostatic hyperplasia with lower urinary tract symptoms) 8. Chronic GERD (K21.9: Gastro-esophageal reflux disease without esophagitis) 9. Depression (F32.A: Depression, unspecified) 10. Obesity (E66.9: Obesity, unspecified) BMI 37 -Educated on need for lifestyle modifications with goal of weight loss as obesity has a negative impact on co-morbid conditions. 11. On deep vein thrombosis (DVT) prophylaxis (Z79.899: Other chcf (current) drug therapy) -Lovenox Orders: acetaminophen, 650 mg = 2 tab(s), Tab, Oral, q6hr PRN Pain, Routine, Start date 12/29/23 15:45:00 EDT, 12/29/23 15:45:00 EDT enoxaparin, 40 mg = 0.4 mL, Injection, SubCutaneous, Daily for 30 day(s), Stop date 01/29/24 8:59:00 EDT, Routine, Start date 12/30/23 9:00:00 EDT, 12/29/23 15:45:00 EDT folic acid, 1 mg = 1 tab(s), Tab, Oral, Daily, Routine, Start date 12/30/23 9:00:00 EDT, 12/29/23 15:42:00 EDT glucose, 50 mL, Soln-IV, IV Push, Once PRN Blood glucose, Routine, Start date 12/29/23 16:15:00 EDT hydrALAZINE, 10 mg = 0.5 mL, Injection, IV Push, q4hr, Routine, Start date 12/29/23 17:00:00 EDT, For sbp > 160, 12/29/23 16:06:00 EDT insulin lispro, 0-10 Unit(s), Injection-Insulin, SubCutaneous, QIDACHS, Routine, Start date 12/29/23 16:30:00 EDT lorazepam, 1 mg = 0.5 mL, Injection, IV Push, q1hr PRN Anxiety, Routine, Start date 12/29/23 15:42:00 EDT, 12/29/23 15:42:00 EDT lorazepam, 1 mg = 1 tab(s), Tab, Oral, QID PRN Anxiety, Routine, Start date 12/29/23 15:42:00 EDT, 12/29/23 15:42:00 EDT magnesium oxide, 400 mg = 1 tab(s), Tab, Oral, BID, NOW, Start date 12/29/23 15:36:00 EDT, 12/29/23 15:36:00 EDT multivitamin, 1 tab(s), Tab, Oral, Daily, STAT, Start date 12/29/23 15:42:00 EDT ondansetron, 4 mg = 2 mL, Injection, IV Push, q6hr PRN Nausea, Routine, Start date 12/29/23 15:45:00 EDT, 12/29/23 15:45:00 EDT thiamine, 100 mg = 1 tab(s), Tab, Oral, Daily, Routine, Start date 12/30/23 9:00:00 EDT, 12/29/23 15:42:00 EDT Ambulate with Assistance Basic Metabolic Panel Below the Knee Intermittent Pneumatic Compression Device Cardiac Diet Cardiac Monitoring CBC w/ Auto Diff Clinical [place] Withdrawal Assessment Clinical [place] Withdrawal Assessment Clinical [place] Withdrawal Assessment Clinical [place] Withdrawal Assessment Communication Order Physician to Nursing Communication Order Physician to Nursing Consult to Nephrology Consult to [facility] Drug Screen Urine Elevate Head of Bed Ethanol Level Evaluate Need For Continued Telemetry Hypoglycemia Protocol Responsive Patient Hypoglycemia Protocol Unresponsive Patient Incentive Spirometry Intake and Output Lab Miscellaneous-LC Magnesium Level Notify Provider Notify Provider Vital Signs Notify Provider Vital Signs Oxygen Protocol Physical Therapy Evaluate Patient, Develop a Plan of Care and Implement Plan Precautions Precautions Precautions PTH Intact Pulse Oximetry Resuscitation Status - Full Routine Capillary Glucose POC TSH With T4fr Reflex UA with Cult Rflx Urine Culture Vital Signs Vital Signs Vital Signs Vital Signs Vital Signs Weight -Plan discussed w/ patient, nursing staff and CRM. -Disposition: Patient will likely be greater than 2 midnight stays for treatment of above unless he has a quicker than anticipated recovery. This report was transcribed using voice recognition software. Every effort was made to ensure accuracy, however, inadvertently computerized glass edger mistakes may be present. Future Appointments Appointment Date:01/05/2024 07:45:00 AM Scheduled Provider:Jose Grace MD Location:[facility] Appointment Type: Hospital Follow Up w/TCM Appointment Date:01/10/2024 08:15:00 AM Scheduled Provider:Bryant TAO MD Location:[facility] Appointment Type:URO Office Visit Appointment Date:01/13/2024 09:00:00 AM Scheduled Provider:Javier Goins MD [facility] [place] Appointment Type:Cardiology Follow Up (FT) Appointment Date:07/09/2024 08:00:00 AM Scheduled Provider: Location:[facility] Appointment Type: Medicare Wellness Subsequent Diagnostic Tests Pending * PTH Intact 12/30/23 Future Scheduled Tests Laboratory* U Protein/Creat Ratio 07/14/23 * HgbA1c 07/14/23 * HgbA1c 07/26/23 * Microalbumin Level Urine 07/14/23 * CBC w/ Auto Diff 07/14/23 * Comprehensive Metabolic Panel 07/14/23 * Lipid Panel 07/14/23 [facility] 06-24-2024 Hospital Discharge instructions Patient Education 11/28/2023 15:52:52 EU - Cystoscopy Discharge Instructions (Custom) Cystoscopy Voiding after the procedure: there may be some pain, burning, urgency, frequency and blood tinged urine following the procedure. These symptoms usually resolve within 2-5 days. Drink the amount of fluid it takes to keep the urine pink to yellow or clear in color. Drinking enough water and fluids will help to ease any discomfort after your procedure. If you are having problems that seem out of the ordinary, please call. If unable to contact your physician and you feel it is an emergency, go to the nearest emergency room or call 911 Diet you may resume your normal diet. Activity you may resume your normal activities Call if you have a fever over 100 degrees. Follow Up Care 09/27/2023 14:45:03 With:Bryant TAO Address: [address] [facility] [facility] [place], [place] [id number] Business (1) When: Unknown Comments:As we discussed, I would like to do the voiding diary to see what is exactly going on with the amount voided and the amount catheterized voiding diary to see what is exactly going on with the amount voided and the amount catheterized. You can do this several times in the next couple weeks or soand deliver this to the office so I can look at it and come up with a plan.Please finish your antibiotics.Please continue to intermittently catheterize to be sure you are at least emptying the bladder intermittently. [facility]06-24-2024 Note [id number] NoteCystoscopy ? Voiding after the procedure: there may be some pain, burning, urgency, frequency and blood tingedurine following the procedure. These symptoms usually resolve within 2-5 days. Drink the amount of fluid it takes to keep the urine pink to yellow or clear in color. Drinking enough water and fluids will help to ease any discomfort after your procedure. ? If you are having problems that seem out of the ordinary, please call. ? If unable to contact your physician and you feel it is an emergency, go to the nearest emergency room or call 911 ? Diet ? you may resume your normal diet. ? Activity ? you may resume your normal activities ? Call if you have a fever over 100 degrees.[facility] 09-22-2023 Hospital Discharge instructions Patient Education 09/22/2023 13:02:36 Cystoscopy Cystoscopy Cystoscopy is a procedure that [...] including vitamins, herbs, eye drops, creams, and depp-ypx-xwkvfsn medicines. Any problems you or family members [...] provider tells you to take them. Taking hjdg-wmw-nbapfoe medicines, vitamins, herbs, and supplements. Tests You [...] Follow these instructions at home: Medicines Take xkfy-kkm-flponih and prescription medicines only as told by your health care provider. If you were prescribed an antibiotic medicine, take it as told by your health care provider. Do notstop taking the antibiotic even if you start [...] blood in your urine increases, call your healthcare provider. Follow instructions from your health care provider about eating or drinking restrictions. If a tissue sample was removed for testing (biopsy) during your procedure, it is up to you to get your test results. Ask your health care provider, or the department that is doing the test, when yourresults will be ready. Drink enough fluid to [...] blood in your urine increases, call your healthcare provider. If you were prescribed an antibiotic medicine, take it as told by your health care provider. Do notstop taking the antibiotic even if you start to feel better. This information is not intended to replace advice given to you by your health care provider. Make sure you discuss any questions you have with your health care provider. Document Revised: 02/03/2022 Document Reviewed: 01/02/2021 [employer] Patient Education 2022 Extended Care Information Network. Follow Up Care 09/06/2023 09:35:10 With:EMMY REYNOLDS, Bryant Vogel, URL Address: [address] [place], [place] [address]- When: Unknown [facility] [place] [id number] NoteUrology Cystoscopy Cystoscopy is a procedure that is [...] including vitamins, herbs, eye drops, creams, and vztu-otg-bgxgrcx medicines. ? Any problems you or family [...] tells you to take them. ? Taking zvai-zss-djwbmsa medicines, vitamins, herbs, and supplements. Tests You [...] taken to help prevent infection. These steps mayinclude: ? Washing skin with a germ-killing soap. [...] these instructions at home: Medicines ? Take vhao-ofw-axxammo and prescription medicines only as told by [...] procedure, it is up to you to getyour test results. Ask your health care provider, or the department th (more content not included)...[facility] 08-17-2023 [id number]02-27-[facility] NoteEchocardiology Procedure Exam Date/Time Accession # Ordering Dr. Meadows Transthoracic 08/02/2023 08:40 [facility] [id number] Jose Grace MD CPT code [id number] Reason for Exam (Echo Transthoracic Complete) Murmur Tachycardia R00.0;Other (please specify) Report [facility] [address] [place] [address] Adult Echocardiogram Report Name: ALICJA REYES Bharathi Study Date: 08/02/2023 08:05 AM BP: 189/112 mmHg Patient Location: [facility] HR: 93 : 1955 Gender: Male Height: 69 in Age: 68 yrs Ethnicity: [facility] Weight: 223 lb Reason For Study: Tachycardia, Murmur BSA: 2.2 m2 History: HTN, Murmur, DM, Alcohol abuse, Smokeless tobacco Ordering Physician: Jose Grace Referring Physician: Jose Grace Performed By: Silvina Varghese [facility] Interpretation Summary No comparison study is available. Ejection Fraction = 65-70%. Grade I diastolic dysfunction, (abnormal relaxation pattern). The left ventricular wall motion is normal. There is Trace mitral regurgitation. Right ventricular systolic pressure is 19 mmHg. Procedure A complete two-dimensional transthoracic echocardiogram was performed (2D, M- mode, spectral and color flow Doppler). Study quality is good. I WMSI = 1.00 % Normal = 100 Segments Size X - Cannot 2 - 1-2 small Interpret 1 - Normal Hypokinetic 3 - Akinetic 4 - Dyskinetic3-5 moderate 5 - Aneurysmal 6-14 large 15-16 diffuse Left Ventricle The left ventricle is normal in size. Upper septal hypertrophy (sigmoid septum), normal variant. Ejection Fraction = 65- Echocardiology Report 70%. The left ventricular wall motion is normal. Grade I diastolic dysfunction, (abnormal relaxation pattern). Left Atrium The left atrium is mildly dilated. Right Atrium Right atrial size is normal. Right Ventricle The right ventricular systolic function is normal. Aortic Valve The aortic valve is trileaflet. Diffuse thickening with preserved cusp opening. Mitral Valve Mild to moderate mitral annular calcification. There is Trace mitral regurgitation. Tricuspid Valve Structurally normal tricuspid valve. There is trace tricuspid regurgitation. Right ventricular systolic pressure is 19 mmHg. Pulmonic Valve The pulmonic valve is normal. Arteries The aortic root is normal in size. Venous The inferior vena cava is normal in size, and collapses normally with respiration. Effusion There is no pericardial effusion. MMode/2D Measurements & Calculations RVDd: 3.4 cm LVIDd: 4.7 cm FS: 52.9 % Ao root diam: 3.5 cm IVSd: 1.1 cm LVIDs: 2.2 cm EDV(Teich): 100.1 ml Ao root area: 9.8 cm2 LVPWd: 1.1 cm ESV(Teich): 16.1 ml LA dimension: 4.0 cm EF(Teich): 83.9 % asc Aorta Diam: 3.2 cm LVOT diam: 2.2 cm LVLd ap4: 8.0 cm EDV(MOD-sp2): 69.2 ml LVOT area: 3.9 cm2 EDV(MOD-sp4): 68.3 ml ESV(MOD-sp2): 24.5 ml LVLs ap4: 7.1 cm EF(MOD-sp2): 64.6 % ESV(MOD-sp4): 26.2 ml EF(MOD-sp4): 61.6 % SV(MOD-sp4): 42.1 ml TAPSE: 2.4 cm Ao Sinus of Valsalva: 3.4 cm Ao Sinotubular Junction: 2.7 cm IVC Diam: 1.4 cm RVIDd/LVIDd: 0.74 EF (MOD-bp): 63.0 % LA Vol Index: 35.3 ml/m2 Doppler Measurements & Calculations Echocardiology Report MV E max jaime: 103.5 cm/sec MV dec time: 0.15 sec Ao V2 max: 177.8 cm/sec LV V1 max P.2 mmHg MV A max jaime: 150.5 cm/sec Ao max P.6 mmHg LV V1 max: 90.0 cm/sec MV E/A: 0.69 Lat Peak E' Jaime: 6.8 cm/sec CALVIN(V,D): 2.0 cm2 E/E' Lat: 15.2 Med Peak E' Jaime: 5.9 cm/sec E/E' Med: 17.5 TR max jaime: 200.3 cm/sec RAP systole: 3.0 mmHg AV VR: 0.51 TR max P.0 mmHg RVSP(TR): 19.0 mmHg FINAL REPORT Dictated: 08/02/2023 8:05 am Andrzej HENRY MD Signed (Electronic Signature): 08/02/2023 9:28 am Signed by: Andrzej HENRY MD Transcribed by: THOMAS Technologist: [facility]02-21-2024 Hospital Discharge instructions Patient Education 07/27/2023 11:28:01 Transrectal Ultrasound-Guided Prostate Biopsy, Care After Transrectal Ultrasound-Guided Prostate Biopsy, Care After The following information offers guidance on how to care for yourself after your procedure. Your health care provider may also give you more specific instructions. If you have problems or questions, contact your health care provider. What can I expect after the procedure? After the procedure, it is common to have: Pain and discomfort near your rectum, especially while sitting. Secor-colored urine due to small amounts of blood in your urine. A burning feeling while urinating. Blood in your stool (feces) or bleeding from your rectum. Blood in your semen. Follow these instructions at home: Medicines Take vxwm-rfs-trvlany and prescription medicines only as told by your health care provider. If you were given a sedative during your procedure, it can affect you for several hours. Do not drive or operate machinery until your health care provider says that it is safe. If you were prescribed an antibiotic medicine, take it as told by your health care provider. Do notstop using the antibiotic even if you start to feel better. Activity Return to your normal activities as told by your health care provider. Ask your health care provider what activities are safe for you. Ask your health care provider when it is okay for you to resume sexual activity. You may have to avoid lifting. Ask your health care provider how much you can safely lift. General instructions Drink enough fluid to keep your urine pale yellow. Watch your urine, stool, and semen for new or increased bleeding. Keep all follow-up visits. This is important. Contact a health care provider if: You have any of the following: ?Blood clots in your urine or stool. ?Blood in your urine more than 2 weeks after the procedure. ?Blood in your semen more than 2 months after the procedure. ?New or increased bleeding in your urine, stool, or semen. ?Severe pain in your abdomen. Your urine smells bad or unusual. You have trouble urinating. Your lower abdomen feels firm. You have problems getting an erection. You have nausea or you vomit. Get help right away if: You have a fever or chills. This could be a sign of infection. You have bright red urine. You have severe pain that does not get better with medicine. You cannot urinate. Summary After this procedure, it is common to have pain and discomfort around your rectum, especially whilesitting. You may have blood in your urine and stool after the procedure. It is common to have blood in your semen after this procedure. Get help right away if you have a fever or chills. This could be a sign of infection. This information is not intended to replace advice given to you by your health care provider. Make sure you discuss any questions you have with your health care provider. Document Revised: 11/16/2021 Document Reviewed: 11/16/2021 [employer] Patient Education 2022 Extended Care Information Network. 07/27/2023 11:28:00 Transrectal Ultrasound-Guided Prostate Biopsy Transrectal Ultrasound-Guided Prostate Biopsy A transrectal ultrasound-guided prostate biopsy is a procedure to remove samples of prostate tissuefor testing. The prostate is a walnut-sized gland that is located below the bladder and in front ofthe rectum. During this procedure, a small device (probe) is lubricated and put inside the rectum. The probe sends out sound waves that make a picture of the prostate and surrounding tissues (transrectal ultrasound). The images are used to help guide the process of removing the samples. The samplesare taken to a lab to be checked for prostate cancer. This procedure is usually done to evaluate the prostate gland of men who have raised (elevated) levels of prostate-specific antigen (PSA), which can be a sign of prostate cancer or prostate enlargement related to aging (benign prostatic hyperplasia, or BPH). Tell a health care provider about: Any allergies you have. All medicines you are taking, including vitamins, herbs, eye drops, creams, and hyjy-ggj-jwtyvol medicines. Any problems you or family members have had with anesthetic medicines. Any bleeding problems you have. Any surgeries you have had. Any medical conditions you have. Any prostate infections you have had. What are the risks? Generally, this is a safe procedure. However, problems may occur, including: Prostate infection. Bleeding from the rectum. Blood in the urine. Allergic reactions to medicines. Damage to surrounding structures such as blood vessels, organs, or muscles. Difficulty passing urine. Nerve damage. This is usually temporary. What happens before the procedure? Medicines Ask your health care provider about: Changing or stopping your regular medicines. This is especially important if you are taking diabetes medicines or blood thinners. Taking medicines such as aspirin and ibuprofen. These medicines can thin your blood. Do not take these medicines unless your health care provider tells you to take them. Taking dckr-yka-wzthkem medicines, vitamins, herbs, and supplements. General instructions Follow instructions from your health care provider about eating and drinking. In most instances, you will not need to stop eating and drinking completely before the procedure. You will be given an enema. During an enema, a liquid is injected into your rectum to clear out waste. You may have a blood or urine sample taken. Ask your health care provider what steps will be taken to help prevent infection. These steps may include: ?Washing skin with a germ-killing soap. ?Taking antibiotic medicine. If you will be going home right after the procedure, plan to have a responsible adult: ?Take you home from the hospital or clinic. You will not be allowed to drive. ?Care for you for the time you are told. What happens during the procedure? An IV will be inserted into one of your veins. You will be given one or both of the following: ?A medicine to help you relax (sedative). ?A medicine to numb the area (local anesthetic). You will be placed on your left side, and your knees will be bent toward your chest. A probe with lubricated gel will be placed into your rectum, and images will be taken of your prostate and surrounding structures. Numbing medicine will be injected into your prostate. A biopsy needle will be inserted through your rectum or perineum and guided to your prostate using the ultrasound images. Prostate tissue samples will be removed, and the needle and probe will then be removed. The biopsy samples will be sent to a lab to be tested. The procedure may vary among health care providers and hospitals. What happens after the procedure? Your blood pressure, heart rate, breathing rate, and blood oxygen level will be monitored until youleave the hospital or clinic. You may have some discomfort in the rectal area. You will be given pain medicine as needed. If you were given a sedative during the procedure, it can affect you for several hours. Do not drive or operate machinery until your health care provider says that it is safe. It is up to you to get the results of your procedure. Ask your health care provider, or the department that is doing the procedure, when your results will be ready. Keep all follow-up visits. This is important. Summary A transrectal ultrasound-guided biopsy removes samples of tissue from your prostate using ultrasound-guided sound waves to help guide the process. This procedure is usually done to evaluate the prostate gland of men who have raised (elevated) levels of prostate-specific antigen (PSA), which can be a sign of prostate cancer or prostate enlargement related to aging. After your procedure, you may feel some discomfort in the rectal area. Plan to have a responsible adult take you home from the hospital or clinic, and follow up with yourhealth care provider for your results. This information is not intended to replace advice given to you by your health care provider. Make sure you discuss any questions you have with your health care provider. Document Revised: 11/16/2021 Document Reviewed: 11/16/2021 [employer] Patient Education 2022 [employer] Information Network. Follow Up Care 07/26/2023 12:46:05 With:RAMANDEEP PORTER PA-C, URL Address: [address] [place] [address] When: Unknown [facility] [place] 01-16-2024 Hospital Discharge instructions Patient Education 06/21/2023 14:21:26 [...] including vitamins, herbs, eye drops, creams, and hgft-jej-ofpbsxg medicines. Any problems you or family members [...] provider tells you to take them. Taking wiif-gbd-wtuuphl medicines, vitamins, herbs, and supplements. Tests You [...] Follow these instructions at home: Medicines Take yltv-svy-dkyhlbe and prescription medicines only as told by your health care provider. If you were prescribed an antibiotic medicine, take it as told by your health care provider. Do notstop taking the antibiotic even if you start [...] blood in your urine increases, call your healthcare provider. Follow instructions from your health care provider about eating or drinking restrictions. If a tissue sample was removed for testing (biopsy) during your procedure, it is up to you to get your test results. Ask your health care provider, or the department that is doing the test, when yourresults will be ready. Drink enough fluid to [...] blood in your urine increases, call your healthcare provider. If you were prescribed an antibiotic medicine, take it as told by your health care provider. Do notstop taking the antibiotic even if you start to feel better. This information is not intended to replace advice given to you by your health care provider. Make sure you discuss any questions you have with your health care provider. Document Revised: 02/03/2022 Document Reviewed: 01/02/2021 [employer] Patient Education 2022 [employer] 06/21/2023 14:21:23 Acute Urinary Retention, Male Acute Urinary Retention, Male Acute urinary retention is a condition in which a person is unable to pass urine or can only pass alittle urine. This condition can happen suddenly and [...] As men age, their prostate may become largerand may start to press or squeeze on the bladder or the urethra. Other chronic health conditions can increase the risk of acute urinary retention. These include: Diseases such as multiple sclerosis. Spinal cord injuries. Diabetes. Degenerative cognitive conditions, such as delirium or dementia. Psychological conditions. A man may hold his urine due to trauma or because he does not want to usethe bathroom. What are the signs or symptoms? [...] Follow these instructions at home: Medicines Take znjg-fjr-xntgmaz and prescription medicines only as told by your health care provider. Avoid certain medicines, such as decongestants, antihistamines, and some prescription medicines. Do not take any medicine unless your health care provider approves. If you were prescribed an antibiotic medicine, take it as told by your health care provider. Do notstop using the antibiotic even if you start to feel better. General instructions Do not use any products that contain nicotine or tobacco. These products include cigarettes, chewing tobacco, and vaping devices, such as e-cigarettes. If you need help quitting, ask your health careprovider. Drink enough fluid to keep your urine [...] to pass urine or can only pass alittle urine. If left untreated, this condition can [...] provider. Document Revised: 02/11/2021 Document Reviewed: 02/11/2021 [employer] Patient Education 2022 Extended Care Information Network. Follow Up Care 06/21/2023 10:00:59 With:MINDI CHRISTIAN, RAMANDEEP Green, URL Address: [address] [place] [address] [phone] When: Unknown Comments:sched cysto and prostate MRI [facility] 03-01-2020 Evaluation + Plan note Future Appointments Appointment Date:08/02/2023 08:00:00 AM Scheduled Provider: Location:FT.[facility] Appointment Type:CV Echo () Appointment Date:08/05/2023 08:45:00 AM Scheduled Provider: Location:[facility] Appointment Type:NM Myocard Spect Multi Rest/Stress-Res Appointment Date:08/05/2023 09:45:00 AM Scheduled Provider: [facility] Type:NM Myocard Spect Multi Rest/Stress - R Appointment Date:08/05/2023 10:15:00 AM Scheduled Provider: [facility] App[facility] Type:NM Myocard Spect Multi Rest/Stress-Str Appointment Date:08/05/2023 11:15:00 AM Scheduled Provider: [facility] App[facility] Type:NM Myocar Spect Multi Rest/Stress - St Appointment Date:08/08/2023 02:00:00 PM Scheduled Provider: Location:[facility] Appointment Type:Urology FT Appointment Date:08/08/2023 03:00:00 PM Scheduled Provider: Location:[facility] Appointment Type:Urology FT Appointment Date:08/15/2023 07:00:00 AM Scheduled Provider:Jose Grace MD Location:[facility] Appointment Type: Open Appointment Date:08/19/2023 11:45:00 AM Scheduled Provider:Troy Coulter MD [facility] [place]oint[facility] Type:Cardiology Follow Up (FT) Appointment Date:07/09/2024 08:00:00 AM Scheduled Provider: Location:[facility] Appointment Type:FM Medicare Wellness Subsequent Future Scheduled Tests Laboratory* U Protein/Creat Ratio 07/14/23 * HgbA1c 07/14/23 * HgbA1c 07/26/23 * Microalbumin Level Urine 07/14/23 * CBC w/ Auto Diff 07/14/23 * Comprehensive Metabolic Panel 07/14/23 * Lipid Panel 07/14/23 Radiology* NM Myocardial Spect Rest/Stress 1 Day 08/05/23 * Echo Transthoracic Complete 08/02/23 [facility] [place] 01-08-2020 Evaluation + Plan note Future Appointments Appointment Date:06/09/2023 08:00:00 AM Scheduled Provider: [facility] Type:CV Echo (FT) Appointment Date:06/13/2023 08:00:00 AM Scheduled Provider:Jose Grace MD Location:[facility] Appointment Type: Open Appointment Date:07/11/2023 09:00:00 AM Scheduled Provider:Manolo [facility]EN MD [facility]O New Patient Appointment Date:07/27/2023 02:00:00 PM Scheduled [facility] Medicare Wellness Subsequent Appointment Date:07/27/2023 02:40:00 PM Scheduled Provider:Jose Grace MD [facility]: Open Future Scheduled Tests Radiology* Echo Transthoracic [facility]23 [facility] Future App[facility]ments Appointment Date:07/27/2023 02:00:00 PM Scheduled Provider: [facility]: Medicare Wellness Subsequent Appointment Date:07/27/2023 02:40:00 PM Scheduled Provider:Jose Grace MD [facility]: Open [facility] Future Appointments Appointment Date:05/16/2023 07:20:00 AM Scheduled Provider:Jose Grace MD [facility] App[facility] Type:FM Open Appointment Date:07/27/2023 02:00:00 PM Scheduled Provider: [facility] App[facility] Type: Medicare Wellness Subsequent Appointment Date:07/27/2023 02:40:00 PM Scheduled Provider:Jose Grace MD [facility] App[facility] Type: Open [facility] + Plan note Future Appointments Appointment Date:05/16/2023 07:20:00 AM Scheduled Provider:Jose Grace MD [facility] Type: Open Appointment Date:07/27/2023 02:00:00 PM Scheduled Provider: [facility] App[facility] Type: Medicare Wellness Subsequent Appointment Date:07/27/2023 02:40:00 PM Scheduled Provider:Jose Grace MD [facility] App[facility] Type: Open Diagnostic Tests Pending * [facility] Future Appointments Appointment Date:07/11/2023 09:00:00 AM Scheduled Provider:Manolo ALLEN MD [facility] Type:URO New Patient Appointment Date:07/27/2023 02:00:00 PM Scheduled Provider: Location:[facility] Appointment Type:FM Medicare Wellness Subsequent Appointment Date:07/27/2023 02:40:00 PM Scheduled Provider:Jose Grace MD Location:[facility] Appointment Type:FM Open Diagnostic Tests Pending * Urine Culture 05/16/23 Future Scheduled Tests Radiology* Echo Transthoracic Complete 05/16/23 [facility] Future Appointments Appointment Date:05/27/2023 08:20:00 AM Scheduled Provider: Location:[facility] Appointment Type:FM Nurse Visit Appointment Date:06/09/2023 08:00:00 AM Scheduled Provider: [facility] Type:CV Echo () Appointment Date:06/13/2023 08:00:00 AM Scheduled Provider:Jose Grace MD Location:[facility] Appointment Type: Open Appointment Date:07/11/2023 09:00:00 AM Scheduled Provider:Manolo ALLEN MD Location:[facility] Appointment Type:URO New Patient Appointment Date:07/27/2023 02:00:00 PM Scheduled Provider: Location:[facility] Appointment Type: Medicare Wellness Subsequent Appointment Date:07/27/2023 02:40:00 PM Scheduled Provider:Jose Grace MD Location:[facility] Appointment Type:FM Open Diagnostic Tests Pending * Urine Culture 05/26/23 Future Scheduled Tests Laboratory* Basic Metabolic Panel 05/26/23 Radiology* Echo Transthoracic Complete 06/09/23 [facility] Future Appointments Appointment Date:06/13/2023 08:00:00 AM Scheduled Provider:Jose Grace MD Location:[facility] Appointment Type:FM Open Appointment Date:06/29/2023 10:15:00 AM Scheduled Provider:Kristel Tolentino MD Location:[facility] Appointment Type:URO New Patient Appointment Date:07/25/2023 02:00:00 PM Scheduled Provider: Location:[facility] Appointment Type: Medicare Wellness Subsequent Appointment Date:07/25/2023 03:00:00 PM Scheduled Provider:Jose Grace MD Location:[facility] Future Appointments Appointment Date:06/29/2023 10:15:00 AM Scheduled Provider:Kristel Tolentino MD Location:[facility] Appointment Type:URO New Patient Appointment Date:07/14/2023 10:00:00 AM Scheduled Provider:Jose Grace MD Location:[facility] Appointment Type: Open Appointment Date:07/15/2023 02:00:00 PM Scheduled Provider:Troy Coulter MD [facility] [place] Type:Cardiology New Patient (FT) Appointment Date:07/25/2023 02:00:00 PM Scheduled Provider: Location:[facility] Appointment Type: Medicare Wellness Subsequent Appointment Date:07/25/2023 03:00:00 PM Scheduled Provider:Jose Grace MD Location:[facility] Future Appointments Appointment Date:06/22/2023 10:30:00 AM Scheduled Provider: Location:[facility] Appointment Type:URO Nurse Visit Appointment Date:06/28/2023 07:45:00 AM Scheduled Provider:Jose Grace MD Location:[facility] Appointment Type: Hospital Follow Up w/TCM Appointment Date:07/14/2023 10:00:00 AM Scheduled Provider:Jose Grace MD Location:[facility] Appointment Type: Open Appointment Date:07/15/2023 02:00:00 PM Scheduled Provider:Troy Coulter MD [facility] Appointment Type:Cardiology New Patient (FT) Appointment Date:07/25/2023 02:00:00 PM Scheduled Provider: Location:[facility] Appointment Type: Medicare Wellness Subsequent Appointment Date:07/25/2023 03:00:00 PM Scheduled Provider:Jose Grace MD Location:[facility] Appointment Type: Open [facility] evaluation + Plan note Future Appointments Appointment Date:06/23/2023 08:00:00 AM Scheduled Provider: Location:[facility] Appointment Type:URO Nurse Visit Appointment Date:06/28/2023 07:45:00 AM Scheduled Provider:Jose Grace MD Location:[facility] Appointment Type: Hospital Follow Up w/TCM Appointment Date:07/14/2023 10:00:00 AM Scheduled Provider:Jose Grace MD Location:[facility] Appointment Type: Open Appointment Date:07/15/2023 02:00:00 PM Scheduled Provider:Troy Coulter MD [facility] [place] Appoint[facility] Type:Cardiology New Patient (FT) Appointment Date:07/25/2023 02:00:00 PM Scheduled Provider: Location:[facility] Appointment Type: Medicare Wellness Subsequent Appointment Date:07/25/2023 03:00:00 PM Scheduled Provider:Jose Grace MD Location:[facility] Appointment Type: Open [facility] evaluation + Plan note Future Appointments Appointment Date:06/28/2023 07:45:00 AM Scheduled Provider:Jose Grace MD Location:[facility] Appointment Type: Hospital Follow Up w/TCM Appointment Date:07/14/2023 10:00:00 AM Scheduled Provider:Jose Grace MD Location:[facility] Appointment Type: Open Appointment Date:07/15/2023 02:00:00 PM Scheduled Provider:Troy Coulter MD [facility] Appointment Type:Cardiology New Patient (FT) Appointment Date:07/25/2023 02:00:00 PM Scheduled Provider: Location:[facility] Appointment Type: Medicare Wellness Subsequent Appointment Date:07/25/2023 03:00:00 PM Scheduled Provider:Jose Grace MD Location:[facility] Appointment Type:[facility] evaluation + Plan note Future Appointments Appointment Date:07/14/2023 10:00:00 AM Scheduled Provider:Jose Grace MD Location:[facility] Appointment Type:FM Open Appointment Date:07/15/2023 02:00:00 PM Scheduled Provider:Troy Coulter MD [facility] Appointment Type:Cardiology New Patient (FT) Appointment Date:07/25/2023 02:00:00 PM Scheduled Provider: Location:[facility] Appointment Type: Medicare Wellness Subsequent Appointment Date:07/25/2023 03:00:00 PM Scheduled Provider:Jose Grace MD Location:[facility] Appointment Type: Open Appointment Date:08/08/2023 02:00:00 PM Scheduled Provider: Location:[facility] Appointment Type:Urology FT Appointment Date:08/08/2023 03:00:00 PM Scheduled Provider: Location:[facility] Appointment Type:Urology FT [facility] Future Appointments Appointment Date:07/25/2023 02:00:00 PM Scheduled Provider: Location:[facility] Appointment Type: Medicare Wellness Subsequent Appointment Date:07/25/2023 03:00:00 PM Scheduled Provider:Jose Grace MD Location:[facility] Appointment Type: Open Appointment Date:08/02/2023 08:00:00 AM Scheduled Provider: [facility] Type:CV Echo (FT) Appointment Date:08/08/2023 02:00:00 PM Scheduled Provider: Location:[facility] Appointment Type:Urology FT Appointment Date:08/08/2023 03:00:00 PM Scheduled Provider: Location:[facility] Appointment Type:Urology FT Appointment Date:08/19/2023 11:45:00 AM Scheduled Provider:Troy Coulter MD [facility] Appointment Type:Cardiology Follow Up (FT) Future Scheduled Tests Laboratory* U Protein/Creat Ratio 07/14/23 * HgbA1c 07/14/23 * Microalbumin Level Urine 07/14/23 * CBC w/ Auto Diff 07/14/23 * Comprehensive Metabolic Panel 07/14/23 * Lipid Panel 07/14/23 Radiology* Echo Transthoracic Complete 08/02/23 [facility] Future Appointments Appointment Date:08/05/2023 08:45:00 AM Scheduled Provider: [facility] Appoint[facility] Type:NM Myocard Spect Multi Rest/Stress-Res Appointment Date:08/05/2023 09:45:00 AM Scheduled Provider: [facility] Appointment Type:NM Myocard Spect Multi Rest/Stress - R Appointment Date:08/05/2023 10:15:00 AM Scheduled Provider: [facility] Appointment Type:NM Myocard Spect Multi Rest/Stress-Str Appointment Date:08/05/2023 11:15:00 AM Scheduled Provider: [facility] Appointment Type:NM Myocar Spect Multi Rest/Stress - St Appointment Date:08/15/2023 07:00:00 AM Scheduled Provider:Jose Grace MD Location:[facility] Appointment Type: Open Appointment Date:08/19/2023 11:45:00 AM Scheduled Provider:Troy Coulter MD [facility] [place] Appointment Type:Cardiology Follow Up (FT) Appointment Date:07/09/2024 08:00:00 AM Scheduled Provider: Location:[facility] Appointment Type:FM Medicare Wellness Subsequent Future Scheduled Tests Laboratory* U Protein/Creat Ratio 07/14/23 * HgbA1c 07/14/23 * HgbA1c 07/26/23 * Microalbumin Level Urine 07/14/23 * CBC w/ Auto Diff 07/14/23 * Comprehensive Metabolic Panel 07/14/23 * Lipid Panel 07/14/23 Radiology* NM Myocardial Spect Rest/Stress 1 Day 08/05/23 [facility] Future Appointments Appointment Date:08/08/2023 12:30:00 PM Scheduled Provider: [facility] Appoint[facility] Type:NM Myocard Spect Multi Rest/Stress-Res Appointment Date:08/08/2023 01:30:00 PM Scheduled Provider: [facility] Appointment Type:NM Myocard Spect Multi Rest/Stress - R Appointment Date:08/08/2023 02:00:00 PM Scheduled Provider: [facility] Appointment Type:NM Myocard Spect Multi Rest/Stress-Str Appointment Date:08/08/2023 03:00:00 PM Scheduled Provider: [facility] Appointment Type:NM Myocar Spect Multi Rest/Stress - St Appointment Date:08/11/2023 09:30:00 AM Scheduled Provider: Location:[facility] Appointment Type:Surgical PAT FT Appointment Date:08/15/2023 07:00:00 AM Scheduled Provider:Jose Grace MD Location:[facility] Appointment Type: Open Appointment Date:08/19/2023 11:45:00 AM Scheduled Provider:Troy Coulter MD [facility] Appointment Type:Cardiology Follow Up (FT) Appointment Date:09/01/2023 01:30:00 PM Scheduled Provider: Location:[facility] Appointment Type:Surgery FT Appointment Date:07/09/2024 08:00:00 AM Scheduled Provider: Location:[facility] Appointment Type: Medicare Wellness Subsequent Future Scheduled Tests Laboratory* U Protein/Creat Ratio 28/24 * HgbA1c 28/24 * HgbA1c 220/24 * Microalbumin Level Urine 24 * CBC w/ Auto Diff 07/14/23 * Comprehensive Metabolic Panel 07/14/23 * Lipid Panel 07/14/23 [facility] Future Appointments Appointment Date:08/15/2023 07:00:00 AM Scheduled Provider:Jose Grace MD Location:[facility] Appointment Type: Open Appointment Date:08/19/2023 11:45:00 AM Scheduled Provider:Troy Coulter MD [facility] Appointment Type:Cardiology Follow Up (FT) Appointment Date:09/01/2023 01:30:00 PM Scheduled Provider: [facility] Type:Surgery FT Appointment Date:07/09/2024 08:00:00 AM Scheduled Provider: Location:[facility] Appointment Type: Medicare Wellness Subsequent Future Scheduled Tests Laboratory* U Protein/Creat Ratio 28/24 * HgbA1c 2/8/24 * HgbA1c 220/24 * Microalbumin Level Urine 824 * CBC w/ Auto Diff 24 * Comprehensive Metabolic Panel 24 * Lipid Panel 2 [facility] Future Appointments Appointment Date:08/19/2023 11:45:00 AM Scheduled Provider:Troy Coulter MD [facility] [facility] [place] Type:Cardiology Follow Up (FT) Appointment Date:09/01/2023 01:30:00 PM Scheduled Provider: Location:[facility] Appointment Type:Surgery FT Appointment Date:07/09/2024 08:00:00 AM Scheduled Provider: Location:[facility] Appointment Type: Medicare Wellness Subsequent Diagnostic Tests Pending * Microalbumin Level Urine 08/15/23 * U Protein/Creat Ratio 08/15/23 Future Scheduled Tests Laboratory* U Protein/Creat Ratio 07/14/23 * HgbA1c 07/14/23 * HgbA1c 07/26/23 * Microalbumin Level Urine 07/14/23 * CBC w/ Auto Diff 07/14/23 * Comprehensive Metabolic Panel 07/14/23 * [facility] Appointment Date:09/01/2023 01:45:00 PM Scheduled Provider: Location:[facility] Appointment Type:Surgery FT Appointment Date:10/19/2023 12:00:00 PM Scheduled Provider:Troy Coulter MD [facility] Type:Cardiology Follow Up (FT) Appointment Date:07/09/2024 08:00:00 AM Scheduled Provider: Location:[facility] Appointment Type: Medicare Wellness Subsequent Future Scheduled Tests Laboratory* U Protein/Creat Ratio 07/14/23 * HgbA1c 07/14/23 * HgbA1c 07/26/23 * Microalbumin Level Urine 07/14/23 * CBC w/ Auto Diff 07/14/23 * Comprehensive Metabolic Panel 07/14/23 * Lipid Panel 07/14/23 [facility] App[facility]ments Appointment Date:10/19/2023 12:00:00 PM Scheduled Provider:Troy Coulter MD [facility] App[facility] Type:Cardiology Follow Up (FT) Appointment Date:07/09/2024 08:00:00 AM Scheduled Provider: Location:[facility] Appointment Type: Medicare Wellness Subsequent Future Scheduled Tests Laboratory* U Protein/Creat Ratio 07/14/23 * HgbA1c 07/14/23 * HgbA1c 07/26/23 * Microalbumin Level Urine 07/14/23 * CBC w/ Auto Diff 07/14/23 * Comprehensive Metabolic Panel 07/14/23 * Lipid Panel 07/14/23 [facility] Future Appointments Appointment Date:10/19/2023 12:00:00 PM Scheduled Provider:Troy Coulter MD [facility] Appoint[facility] Type:Cardiology Follow Up (FT) Appointment Date:01/10/2024 08:15:00 AM Scheduled Provider:Bryant TAO MD [facility] App[facility] Type:URO Office Visit Appointment Date:07/09/2024 08:00:00 AM Scheduled Provider: Location:[facility] Appointment Type:FM Medicare Wellness Subsequent Diagnostic Tests Pending * PSA Free & Total 12/05/23 Future Scheduled Tests Laboratory* U Protein/Creat Ratio 07/14/23 * HgbA1c 07/14/23 * HgbA1c 07/26/23 * Microalbumin Level Urine 07/14/23 * CBC w/ Auto Diff 07/14/23 * Comprehensive Metabolic Panel 07/14/23 * Lipid Panel 07/14/23 [facility] Evaluation + Plan note Future Appointments Appointment Date:11/22/2023 10:00:00 AM Scheduled Provider: Location:[facility] Appointment Type:Urology CALL PAT FT Appointment Date:11/28/2023 02:00:00 PM Scheduled Provider: Location:[facility] Appointment Type:Urology FT Appointment Date:11/28/2023 03:00:00 PM Scheduled Provider: Location:[facility] Appointment Type:Urology FT Appointment Date:12/16/2023 09:00:00 AM Scheduled Provider:Javier Goins MD [facility] Appointment Type:Cardiology Follow Up (FT) Appointment Date:01/10/2024 08:15:00 AM Scheduled Provider:Bryant TAO MD Location:[facility] Appointment Type:URO Office Visit Appointment Date:07/09/2024 08:00:00 AM Scheduled Provider: Location:[facility] Appointment Type: Medicare Wellness Subsequent Future Scheduled Tests Laboratory* U Protein/Creat Ratio 07/14/23 * HgbA1c 07/14/23 * HgbA1c 07/26/23 * Microalbumin Level Urine 07/14/23 * CBC w/ Auto Diff 07/14/23 * Comprehensive Metabolic Panel 07/14/23 * Lipid Panel 07/14/23 [facility] Future Appointments Appointment Date:12/16/2023 09:00:00 AM Scheduled Provider:Javier Goins MD [facility] Appointment Type:Cardiology Follow Up (FT) Appointment Date:01/10/2024 08:15:00 AM Scheduled Provider:Bryant TAO MD Location:[facility] Appointment Type:URO Office Visit Appointment Date:07/09/2024 08:00:00 AM Scheduled Provider: Location:[facility] Appointment Type: Medicare Wellness Subsequent Future Scheduled Tests Laboratory* U Protein/Creat Ratio 07/14/23 * HgbA1c 07/14/23 * HgbA1c 07/26/23 * Microalbumin Level Urine 07/14/23 * CBC w/ Auto Diff 07/14/23 * Comprehensive Metabolic Panel 07/14/23 * Lipid Panel 07/14/23 [facility] Future Appointments Appointment Date:01/10/2024 08:15:00 AM Scheduled Provider:Bryant TAO MD Location:[facility] Appointment Type:URO Office Visit Appointment Date:01/13/2024 09:00:00 AM Scheduled Provider:Javier Goins MD [facility] Appointment Type:Cardiology Follow Up (FT) Appointment Date:07/09/2024 08:00:00 AM Scheduled Provider: Location:[facility] Appointment Type: Medicare Wellness Subsequent Diagnostic Tests Pending * Urine Culture 12/22/23 Future Scheduled Tests Laboratory* U Protein/Creat Ratio 2824 * HgbA1c 824 * HgbA1c 07/26/23 * Microalbumin Level Urine 07/14/23 * CBC w/ Auto Diff 07/14/23 * Comprehensive Metabolic Panel 2/8/24 * Lipid Panel 07/14/23 [facility] Future Appointments Appointment Date:01/10/2024 08:15:00 AM Scheduled Provider:Bryant TAO MD Location:[facility] Appointment Type:URO Office Visit Appointment Date:01/13/2024 09:00:00 AM Scheduled Provider:Javier Goins MD [facility] Appointment Type:Cardiology Follow Up (FT) Appointment Date:07/09/2024 08:00:00 AM Scheduled Provider: Location:[facility] Appointment Type: Medicare Wellness Subsequent Diagnostic Tests Pending * Magnesium Level 12/22/23 Future Scheduled Tests Laboratory* U Protein/Creat Ratio 07/14/23 * HgbA1c 07/14/23 * HgbA1c 07/26/23 * Microalbumin Level Urine 07/14/23 * CBC w/ Auto Diff 07/14/23 * Comprehensive Metabolic Panel 07/14/23 * Lipid Panel 07/14/23 [facility] Future Appointments Appointment Date:01/10/2024 08:15:00 AM Scheduled Provider:Bryant TAO MD Location:[facility] Appointment Type:URO Office Visit Appointment Date:01/13/2024 09:00:00 AM Scheduled Provider:Javier Goins MD Location:[facility] Appointment Type:Cardiology Follow Up (FT) Appointment Date:07/09/2024 08:00:00 AM Scheduled Provider: Location:[facility] Appointment Type:FM Medicare Wellness Subsequent Future Scheduled Tests Laboratory* U Protein/Creat Ratio 07/14/23 * HgbA1c 07/14/23 * HgbA1c 07/26/23 * Microalbumin Level Urine 07/14/23 * CBC w/ Auto Diff 07/14/23 * Comprehensive Metabolic Panel 07/14/23 * Lipid Panel 07/14/23 [facility] Future Appointments Appointment Date:01/11/2024 08:00:00 AM Scheduled Provider: Location:[facility] Appointment Type:FM Lab Draw Appointment Date:01/13/2024 09:00:00 AM Scheduled Provider:Javier Goins MD [facility] [place] Type:Cardiology Follow Up (FT) Appointment Date:07/09/2024 08:00:00 AM Scheduled Provider: Location:[facility] Appointment Type: Medicare Wellness Subsequent Appointment Date:07/23/2024 08:15:00 AM Scheduled Provider:Bryant TAO MD Location:[facility] Appointment Type:URO Office Visit Diagnostic Tests Pending * PSA Free & Total 01/10/24 Future Scheduled Tests Laboratory* U Protein/Creat Ratio 07/14/23 * HgbA1c 07/14/23 * HgbA1c 07/26/23 * Microalbumin Level Urine 07/14/23 * CBC w/ Auto Diff 07/14/23 * Comprehensive Metabolic Panel 07/14/23 * Lipid Panel 07/14/23 * Magnesium Level 01/05/24 * Urine Culture 01/05/24 [facility] Evaluation + Plan note Future Appointments Appointment Date:01/13/2024 09:00:00 AM Scheduled Provider:Javier Goins MD [facility] Appointment Type:Cardiology Follow Up (FT) Appointment Date:07/09/2024 08:00:00 AM Scheduled Provider: Location:[facility] Appointment Type: Medicare Wellness Subsequent Appointment Date:07/23/2024 08:15:00 AM Scheduled Provider:Bryant TAO MD Location:[facility] Appointment Type:URO Office Visit Future Scheduled Tests Laboratory* U Protein/Creat Ratio 07/14/23 * HgbA1c 07/14/23 * HgbA1c 07/26/23 * Microalbumin Level Urine 07/14/23 * CBC w/ Auto Diff 07/14/23 * Comprehensive Metabolic Panel 07/14/23 * Lipid Panel 07/14/23 [facility] Evaluation + Plan note Future Appointments Appointment Date:07/09/2024 08:00:00 AM Scheduled Provider: Location:[facility] Appointment Type: Medicare Wellness Subsequent Appointment Date:07/23/2024 08:15:00 AM Scheduled Provider:Bryant TAO MD Location:[facility] Appointment Type:URO Office Visit Future Scheduled Tests Laboratory* U Protein/Creat Ratio 07/14/23 * HgbA1c 07/14/23 * HgbA1c 07/26/23 * Microalbumin Level Urine 07/14/23 * CBC w/ Auto Diff 07/14/23 * Comprehensive Metabolic Panel 07/14/23 * Lipid Panel 07/14/23 [facility] evaluation + Plan note Future Appointments Appointment Date:07/24/2024 09:20:00 AM Scheduled Provider:TOSHIA Reddy APRN, [place] [facility] Location:[facility] Appointment Type:URO Office Visit Appointment Date:10/08/2024 08:15:00 AM Scheduled Provider:Jose Grace MD Location:[facility] Appointment Type:FM Open Appointment Date:01/07/2025 08:15:00 AM Scheduled Provider:Jose Grace MD Location:[facility] Appointment Type: Open Appointment Date:07/09/2025 08:00:00 AM Scheduled Provider: Location:[facility] Appointment Type:FM Medicare Wellness Subsequent Future Scheduled Tests Laboratory* U Protein/Creat Ratio 07/14/23 * HgbA1c 07/14/23 * HgbA1c 07/26/23 * Microalbumin Level Urine 07/14/23 * CBC w/ Auto Diff 07/14/23 * Comprehensive Metabolic Panel 07/14/23 * Lipid Panel 07/14/23 [facility] evaluation noteNo assessment information available [facility] Work Phone: evaluation note* Diagnosis Carpal tunnel syndrome on both sides- Primary Carpal tunnel syndrome Polyneuropathy Unspecified hereditary and idiopathic peripheral neuropathy documented in this encounter [facility] Narrative No data available for this section [facility] No data available for this section [facility] Additional Instructions DISCHARGE INSTRUCTIONS FOR PROSTATE BIOPSY The following instructions must be followed very closely: -If you need pain pills, start before pain becomes intense. Antibiotics and pain pills are frequently less upsetting to your stomach if you take them wiht food such as crackers or bread. -If you are having excessive or persistent pain, swelling, bleeding, nausea, vomiting, or any other problems, you should first call your surgeon for advice. If you are unable to contact your surgeon, seek help from a hospital emergency room. If you were given drugs to make you drowsy and/or pain medication, follow these instructions: -You should spend the remainder of the day and evening resting. -You should not attempt to walk, including going to the bathroom, without assistance. You may be lightheaded from the medications you received. -Eat light today to avoid nausea. You should be able to return to your normal diet 24-36 hours after surgery. -For the next 24 hours you should not consume alcohol, attempt to drive, use any power tools, sign important documents or make important personal or business decisions After that, do so if you feel perfectly normal and alert. -Follow carefully any verbal or written instructions your surgeon may have given you. -Even though there are no visible incisions, multiple prostate biopsies have been taken through the rectum, and you need to follow some instructions to minimize the risks of bleeding. -You may see some blood in your urine and stool for up to 1 week (and blood in semen for several months). DIET -You may resume your normal diet, but you may want to start slowly and avoid alcohol, carbonated beverages, caffeine, and spicy food. -Drink plenty of water to keep the urine clear. ACTIVITY -You should limit any physical activity for 48 hours. -No heavy lifting and straining (10 pound limit). -No driving a car and limit long car rides for 2 days. -No strenuous exercise. -No sexual intercourse until this is discussed with your doctor. BOWELS -Try to keep your bowel movements soft to minimize straining to have a bowel movement. You may use a stool softener or over the counter laxative if needed. -Difficult bowel movements may lead to straining and bleeding from the prostate. MEDICATIONS -You may resume your home medications unless otherwise instructed. -[Hold aspirin, ibuprofen, Coumadin (warfarin), and other blood thinners for about two days or until there is no active bleeding unless otherwise instructed.] -Finish the antibiotics which you have already started. THINGS TO WATCH FOR WHICH WOULD REQUIRE AN EMERGENCY ROOM VISIT OR CALL 911 (This is not a complete list) -Persistent or heavy bleeding or blood clots from the rectum or urine. -Inability to urinate. -Fever over 101.5 degrees Fahrenheit, with or without chills. -Severe drug reactions with itching, hives, or rash. -Tenderness or swelling of the calves, chest pain, or shortness of breath. FOLLOW UP -Please call the office to arrange for your post-operative appointment in 1-2 weeks. [ ][facility] Work Phone: Progress note No data available for this section [facility] Narrative* Other Medical (Routine) - Closed Specialty Diagnoses / Procedures Referred By Nelly t Referred To Contact Neurology Diagnoses BUE EMG rt hand numbness in fingers, ref by Gustavo Kearns [facility] Procedures EMG Marino Kearns [facility] [address] [place] [id number] Phone: tel: fax: Carlos Howe DO [address] [place] [id number] Phone: tel: fax: Referral ID Status Reason Start Date Expiration Date V isits Requested Visits Authorized [id number] Closed Perform Procedure 05/22/2024 11/18/2024 1 1 [facility] Healthcare Summary Purpose Family History No Family History Records Found Relationship Condition Age at Onset Recorded Date/T kamran Not Specified Diabetes mellitus Unknown Hypertension Unknown father Hypertension Unknown Malignant neoplasm of colon Unknown brother Hypertension Unknown Advance Directives No Advanced Directives Records Found Advance Directive Response Recorded Date/ Time Advance Directives No April 01, 2017 10:34am Advance Directive Response Recorded Date/ Time Advance Directives No April 01, 2017 11:34am Chief Complaint and Reason for Visit Chief Complaint R97.20 Chief Complaint R97.20 R97.20 Chief Complaint R97.20 Elevated PSA Additional Source Comments (unrecognized sect ion and content) No Status Records FoundNo Status Records FoundNo Status Records FoundNo Status Records FoundNo Status Records FoundNo Status Records FoundNo Status Records FoundNo Status Records FoundNo Status Records FoundNo Status Records FoundNo Status Records FoundNo Status Records FoundNo Status Records FoundNo Status Records FoundNo Status Records FoundNo Status Records FoundNo Status Records FoundNo Status Records FoundNo Status Records FoundNo Status Records FoundNo Status Records FoundNo Status Records FoundNo Status Records FoundNo Status Records FoundNo Status Records FoundNo Status Records FoundNo Status Records FoundNo Status Records FoundNo Status Records FoundNo Status Records Found INFORMATION SOURCE (unrecogn ized section and content) DATE CREATED AUTHOR 07/14/2022 [facility] DATE CREATED AUTHOR AUTHOR'S ORGANIZ ATION 09/19/2023 [facility] DATE CREATED AUTHOR AUTHOR'S ORGANIZ ATION 12/26/2023 [facility] DATE CREATED AUTHOR AUTHOR'S ORGANIZ ATION 12/27/2023 [facility] DATE CREATED AUTHOR AUTHOR'S ORGANIZ ATION 12/29/2023 [facility] DATE CREATED AUTHOR AUTHOR'S ORGANIZ ATION 12/30/2023 [facility] DATE CREATED AUTHOR AUTHOR'S ORGANIZ ATION 12/31/2023 [facility] DATE CREATED AUTHOR AUTHOR'S ORGANIZ ATION 01/03/2024 [facility] DATE CREATED AUTHOR AUTHOR'S ORGANIZ ATION 01/08/2024 [facility] DATE CREATED AUTHOR AUTHOR'S ORGANIZ ATION 02/01/2024 [facility] DATE CREATED AUTHOR AUTHOR'S ORGANIZ ATION 02/03/2024 [facility] DATE CREATED AUTHOR AUTHOR'S ORGANIZ ATION 02/24/2024 [facility] DATE CREATED AUTHOR AUTHOR'S ORGANIZ ATION 05/24/2024 [facility] DATE CREATED AUTHOR AUTHOR'S ORGANIZ ATION 07/08/2024 [facility] DATE CREATED AUTHOR AUTHOR'S ORGANIZ ATION 07/10/2024 [facility] DATE CREATED AUTHOR AUTHOR'S ORGANIZ ATION 07/11/2024 [facility] DATE CREATED AUTHOR AUTHOR'S ORGANIZ ATION 07/15/2024 [facility] DATE CREATED AUTHOR AUTHOR'S ORGANIZ ATION 07/16/2024 [facility] Patient Care team informatio n (unrecognized section and content) Team Status: Active Member Role Status Dates Jose Grace MD Primary Care Provider Active Team Status: Inactive Member Role Status Dates aRmandeep Porter PA-C Attending Provider Active Start: July 18, 2023 End: July 18, 2023 Jose Grace MD Primary Care Provider Active Start: July 18, 2023 End: July 18, 2023 Team Status: Inactive Member Role Status Dates Jose Grace MD Primary Care Provider Active Start: July 21, 2023 End: July 21, 2023 Ramandeep Porter PA-C Attending Provider Active Start: July 21, 2023 End: July 21, 2023 Team Status: Inactive Member Role Status Dates Jose Grace MD Primary Care Provider Active Start: September 09, 2023 End: September 09, 2023 Bryant Tao MD Attending Provider Active St art: September 09, 2023 End: September 09, 2023 Goals (unrecognized section and content) Goals may be documented in a n alternate section FOR RECORDS PERTAINING TO PATIENTS WHO ARE [...] BE BASED ON THE PRIMARY CLINICAL RECORDS. [employer] provides no warranty or guarantee of the accuracy or completeness of information in this document.
--- NOTE | 2024-07-17 03:46 | ECG_ITS ---
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
--- NOTE | 2024-07-17 03:47 | ED.GENADUL1 ---
HPI HPI - General Adult General Chief complaint: Recheck/Abnormal Lab/Rx Stated complaint: ABNORMAL LABS Time Seen by Provider: 07/17/24 03:37 Source: patient Mode of arrival: walk-in Limitations: no limitations History of Present Illness HPI narrative: 69-year-old male presents to the emergency department because he states his magnesium as well. He had a blood test performed at another hospital and is doctor called him last night and told him it was critically low and to go to the emergency department right away. He waited over 8 hours. He does not seem to have any symptoms. He has a history of low magnesium and states he has been taking his magnesium supplement. Related Data Home Medications ?Medication ?Instructions ?Recorded ?Confirmed atorvastatin 20 mg tablet 40 mg PO DAILY 05/23/23 01/31/24 glipizide 5 mg tablet 5 mg PO DAILY 05/23/23 01/31/24 lisinopril 20 1 tab PO DAILY 05/23/23 01/31/24 mg-hydrochlorothiazide 12.5 mg tablet metformin 500 mg tablet 500 mg PO BID 05/23/23 01/31/24 metoprolol tartrate 25 mg tablet 25 mg PO Q12H 05/23/23 01/31/24 omeprazole 40 mg capsule,delayed 40 mg PO DAILY 05/23/23 01/31/24 release amlodipine 5 mg tablet 5 mg PO DAILY 01/31/24 01/31/24 lisinopril 40 mg tablet 40 mg PO DAILY 01/31/24 01/31/24 magnesium oxide 400 mg (241.3 mg 400 mg PO BID 01/31/24 01/31/24 magnesium) tablet Previous Rx's ?Medication ?Instructions ?Recorded ciprofloxacin HCl 500 mg tablet 500 mg PO Q12H #14 tabs 06/04/23 tamsulosin 0.4 mg capsule (Flomax) 0.4 mg PO DAILY #20 caps 06/04/23 potassium chloride 20 mEq oral 20 meq PO BID 2 days #4 ea 06/05/23 packet Allergies Allergy/AdvReac Type Severity Reaction Status Date / Time No Known Drug Allergies Allergy Verified 07/17/24 03:43 Opioid HPI Opioid Management Most Recent Opioid Data: No Data to Display Review of Systems ROS Narrative A ten point review of systems is negative except as noted above. PFSH PFSH Social History Smoking status: Never smoker Little interest or pleasure in doing things: not at all Feeling down, depressed, or hopeless: not at all Exam Narrative Exam Narrative: Nurses note and vital signs reviewed and patient is not hypoxic. General: The patient appears well and in no apparent distress. Patient is resting comfortably on cart. Skin: Warm, dry, no pallor noted. There is no rash noted. Head: Normocephalic, atraumatic Eye: Normal conjunctiva, no drainage Ears, Nose, Mouth, and Throat: oral mucosa is moist. Nares patent. Cardiovascular: Regular Rate and Rhythm Respiratory: Patient is in no distress, no accessory muscle use, lungs are clear to auscultation, no wheezing, rales or rhonchi Back: non-tender GI: Soft and nontender Musculoskeletal: The patient has no evidence of calf tenderness, no pitting edema, symmetrical pulses noted bilaterally Neurological: A&O, normal speech Psychiatric: Cooperative Constitutional Vital Signs, click to edit/add: Last Vital Signs Temp 97.8 F 07/17/24 03:40 Pulse 96 H 07/17/24 04:10 Resp 15 07/17/24 04:10 BP 163/81 H 07/17/24 03:40 Pulse Ox 99 07/17/24 03:40 O2 Del Method Room Air 07/17/24 03:40 Course Vital Signs Vital signs: Vital Signs Temperature 97.8 F 07/17/24 03:40 Pulse Rate 101 H 07/17/24 03:40 Respiratory Rate 18 07/17/24 03:40 Blood Pressure 163/81 H 07/17/24 03:40 Pulse Oximetry 99 07/17/24 03:40 Oxygen Delivery Method Room Air 07/17/24 03:40 Temperature 97.8 F 07/17/24 03:40 Pulse Rate 96 H 07/17/24 04:10 Respiratory Rate 15 07/17/24 04:10 Blood Pressure 163/81 H 07/17/24 03:40 Pulse Oximetry 99 07/17/24 03:40 Oxygen Delivery Method Room Air 07/17/24 03:40 Medical Decision Making MDM Narrative Medical decision making narrative: Magnesium level is 0.3. He was given 4 g of magnesium and will follow-up with his doctor for recheck. Treatment diagnosis and follow-up were discussed with the patient. Differential Diagnosis Differential Diagnosis: Hypomagnesemia Lab Data Lab results reviewed: Yes I reviewed the patient's lab results Labs: Lab Results 07/17/24 Range/Units 03:53 WBC 6.3 (4.0-11.0) 10^3/uL RBC 3.86 L (4.70-6.10) 10^6/uL Hgb 13.1 L (14.0-18.0) g/dL Hct 38.2 L (42.0-54.0) % MCV 99.0 H (80.0-94.0) fL MCH 33.9 (25.9-34.0) pg MCHC 34.3 (29.9-35.2) g/dL RDW 12.3 (11.0-15.0) % Plt Count 191 (150-450) 10^3/uL MPV 9.2 L (9.5-13.5) fL Neut % (Auto) 60.6 (43.0-75.0) % Lymph % (Auto) 24.4 (20.5-60.0) % [place] % (Auto) 10.3 (1.7-12.0) % Eos % (Auto) 3.6 (0.9-7.0) % Baso % (Auto) 0.8 (0.2-2.0) % Neut # (Auto) 3.8 (1.4-6.5) 10^3/uL Lymph # (Auto) 1.5 (1.2-3.8) 10^3/uL [place] # (Auto) 0.7 (0.3-0.8) 10^3/uL Eos # (Auto) 0.2 (0.0-0.7) 10^3/uL Baso # (Auto) 0.1 (0.0-0.1) 10^3/uL Abs Immat Gran (auto) 0.02 (0.00-0.03) 10^3/uL Imm/Tot Granulo (auto) 0.3 (0.0-0.5) % Sodium 139 (136-145) mmol/L Potassium 3.6 (3.5-5.1) mmol/L Chloride 101 (98-107) mmol/L Carbon Dioxide 26.2 (21.0-32.0) mmol/L Anion Gap 15.4 BUN 13.0 (7.0-18.0) mg/dL Creatinine 1.58 H (0.70-1.30) mg/dL Est GFR ( Amer) 53 L (>=60 mL/min/1.73m^2) Est GFR (Non-Af Amer) 44 L (>=60 mL/min/1.73m^2) BUN/Creatinine Ratio 8.2 Glucose 240 H (74-106) mg/dL Calcium 7.4 L (8.5-10.1) mg/dL Magnesium 0.3 L* (1.8-2.4) mg/dL ECG Data Attestation: I personally reviewed and interpreted this ECG as follows: (12696, dementia potation shows sinus rhythm with a rate of 101) Discharge Plan Discharge Chief Complaint: Recheck/Abnormal Lab/Rx Clinical Impression: Hypomagnesemia Patient Disposition: Home, Self-Care Time of Disposition Decision: 05:31 Condition: Good Mode of Transportation: Private Vehicle Prescriptions / Home Meds: No Action glipizide 5 mg tablet 5 mg PO DAILY lisinopril-hydrochlorothiazide 20-12.5 mg tablet 1 tab PO DAILY metformin 500 mg tablet 500 mg PO BID metoprolol tartrate 25 mg tablet 25 mg PO Q12H omeprazole 40 mg capsule,delayed release(DR/EC) 40 mg PO DAILY atorvastatin 20 mg tablet 40 mg PO DAILY ciprofloxacin HCl 500 mg tablet 500 mg PO Q12H Qty: 14 0RF tamsulosin [Flomax] 0.4 mg capsule 0.4 mg PO DAILY Qty: 20 0RF potassium chloride 20 mEq packet 20 meq PO BID 2 Days Qty: 4 0RF amlodipine 5 mg tablet 5 mg PO DAILY magnesium oxide 400 mg (241.3 mg magnesium) tablet 400 mg PO BID lisinopril 40 mg tablet 40 mg PO DAILY Print Language: Azeri Instructions: Hypomagnesemia (ED) Additional Instructions: Follow-up with your family doctor for recheck of magnesium levels. Referrals: NANCY GRACE [Primary Care Provider] - 1 week
[2024-07-17 03:49] VITALS: PULSE 102
[2024-07-17 03:50] VITALS: PULSE 102
[2024-07-17 04:00] VITALS: PULSE 98
[2024-07-17 04:01] LABS: Basophils Absolute Auto 0.1 10^3/uL (0.0-0.1); Basophils Percent Auto 0.8 % (0.2-2.0); Eosinophils Absolute Auto 0.2 10^3/uL (0.0-0.7); Eosinophils Percent Auto 3.6 % (0.9-7.0); Hematocrit 38.2 % (42.0-54.0); Hemoglobin 13.1 g/dL (14.0-18.0); Immature Granulocytes Abs Auto 0.02 10^3/uL (0.00-0.03); Immature Granulocytes Pct Auto 0.3 % (0.0-0.5); Lymphocytes Absolute Auto 1.5 10^3/uL (1.2-3.8); Lymphocytes Percent Auto 24.4 % (20.5-60.0); Mean Corpuscular HGB Conc 34.3 g/dL (29.9-35.2); Mean Corpuscular Hemoglobin 33.9 pg (25.9-34.0); Mean Platelet Volume 9.2 fL (9.5-13.5); Monocytes Absolute Auto 0.7 10^3/uL (0.3-0.8); Monocytes Percent Auto 10.3 % (1.7-12.0); Neutrophils Absolute Auto 3.8 10^3/uL (1.4-6.5); Neutrophils Percent Auto 60.6 % (43.0-75.0); Platelet Count 191 10^3/uL (150-450); Red Blood Count 3.86 10^6/uL (4.70-6.10); Red Cell Distribution Width 12.3 % (11.0-15.0); White Blood Count 6.3 10^3/uL (4.0-11.0)
[2024-07-17 04:10] VITALS: PULSE 96
[2024-07-17 04:13] LABS: Anion Gap 15.4; BUN Creatinine Ratio 8.2; Calcium 7.4 mg/dL (8.5-10.1); Carbon Dioxide 26.2 mmol/L (21.0-32.0); Chloride 101 mmol/L (98-107); Estimated GFR (African America 53 (>=60 mL/min/1.73m^2); Estimated GFR (Non-African Ame 44 (>=60 mL/min/1.73m^2); Glucose 240 mg/dL (74-106); Potassium 3.6 mmol/L (3.5-5.1); Sodium 139 mmol/L (136-145)
[2024-07-17 04:25] LABS: Magnesium 0.3 mg/dL (1.8-2.4)
[2024-07-17] MEDS: MAGNESIUM SULFATE IV (05:13)
[2024-07-17] MEDS: SODIUM CHLORIDE 0.9% IV (05:13)
== END 2024-07-17 05:50 | disposition home or self-care (01) ==
PROVIDERS: Emergency Provider Emergency Medicine; PCP Family Medicine
DX: E83.42 Hypomagnesemia (principal)
CPT/HCPCS: 36415; 80048; 83735; 85025; 93005; 96365; 99284; J3475

== ENCOUNTER 2024-08-24 05:39 | Emergency (ER) | payer MEDICARE, OTHER, SELFPAY ==
[2024-08-24] VITALS (31 sets, daily range): BP systolic 122–144; BP diastolic 74–82; PULSE 79–100; TEMP 36.6; O2SAT 97–100; BMI 36.9
--- OUTSIDE RECORDS SUMMARY | 2024-08-24 05:45 | XMS_ITS | CCD ---
Author Organization [facility] Care Team Providers Care Overlocker Name Role Phone DR TYRESE MCGRATH Admitting Unavailable DR TYRESE MCGRATH Attending Unavailable DR TYRESE MCGRATH Primary Care Unavailable DR TYRESE MCGRATH Consulting Unavailable Nancy Grace Primary Care Physician GINO Porter Attending Provider MD Nancy Grace Primary Care Provider MD Nancy Grace Primary Care Provider [phone] GINO Porter Attending Provider MD Bryant Tao Attending Provider Nancy Grace Primary Care Unavailable Bryant Tao Admitting Unavailable Bryant Tao Attending Unavailable Ramandeep Porter Admitting Unavailable Ramandeep Porter Attending Unavailable Nancy Grace Primary Care Unavailable MARINO KEARNS Attending Unavailable MARINO KEARNS Admitting Unavailable Nancy Grace Attending Unavailable Nancy Grace Attending Unavailable Nancy Grace Admitting Unavailable Ok, Ramos Consulting Unavailable Artemio Olivares Admitting Unavailable Artemio Olivares Attending Unavailable MD Nancy Grace Admitting Unavailable MD Nancy Grace Attending Unavailable Ronny Cartagena Attending Unavailable Artemio Olivares Admitting Unavailable Artemio Olivares Attending Unavailable Ok, Ramos Consulting Unavailable MD Ok Ramos Consulting Unavailable Akkina, Ramos Consulting Unavailable Akkina, Ramos Consulting Unavailable Akkina, Ramos Consulting Unavailable Akkina, Ramos Consulting Unavailable Akkina, Ramos Consulting Unavailable Akkina, Ramos Consulting Unavailable Akkina, Ramos Consulting Unavailable MD Nancy Grace Attending Unavailable Nancy Grace E. Attending Unavailable Ross, Nancy E. Admitting Unavailable Ross, Nancy E. Attending Unavailable Ross, Nancy E. Admitting Unavailable Ross, Nancy E. Attending Unavailable Akkina, Ramos Admitting Unavailable Akkina, Ramos Attending Unavailable Nancy Grace E. Attending Unavailable Ross, Nancy E. Admitting Unavailable Akkina, Ramos Attending Unavailable Akkina, Ramos Admitting Unavailable Unavailable Primary Care Provider Unavailabl e Nancy Grace E. Attending Unavailable Ruiz Nancy E. Admitting Unavailable Ross Nancy E. Attending Unavailable Nancy Grace E. Admitting Unavailable Nancy Grace E. Attending Unavailable Nancy Grace MD Primary Care Provider [phone] Estefania Reddy Attending Unavailable Nancy Grace EMalgorzata Attending Unavailable Nancy Grace E. Admitting Unavailable Nancy Grace E. Admitting Unavailable Nancy Grace E. Attending Unavailable Tyrese Mcgrath MD Primary Care Provider NONE, XXXX Referring Unavailable MD Javier Goins Attending Unavailable COOK Bryant P Attending Unavailable Nancy Grace EMalgorzata Attending Unavailable Nancy Grace E. Attending Unavailable SHIRA, FINANCIAL SERVICE REPRESENTATIVE MARINO A Attending Unavailabl e COOKLinusBryant P Attending Unavailable COOK, Bryant P Attending Unavailable COOK Bryant P Attending Unavailable COOK, Bryant P Referring Unavailable COOK, Bryant P Admitting Unavailable COOK, Bryant P Referring Unavailable COOK, Bryant P Admitting Unavailable COOK, Bryant P Attending Unavailable SHIRA, FINANCIAL SERVICE REPRESENTATIVE MARINO A Admitting Unavailabl e SHIRA, FINANCIAL SERVICE REPRESENTATIVE MARINO A Attending Unavailabl e Nancy Grace EMalgorzata Admitting Unavailable Nancy Grace E. Attending Unavailable SHIRA, FINANCIAL SERVICE REPRESENTATIVE MARINO A Admitting Unavailabl e SHIRA, FINANCIAL SERVICE REPRESENTATIVE MARINO A Attending Unavailabl e Jacinto Ramirez Attending Unavailable NONE, XXXX Referring Unavailable NONE, XXXX Referring Unavailable Troy Coulter. Attending Unavaila bob DILLON JR., LAUREN Dawkins Attending Unavaila CHLOE Rojas Attending Unavailable CARLOS HOWE Attending Unavailable MARINO KEARNS Referring Unavailable CHLOE HAWTHORNE Referring Unavailable TYRESE MCGRATH Primary Care Unavailable Nancy Grace EMalgorzata Attending Unavailable Nancy Grace E. Attending Unavailable Nancy Grace Attending Unavailable CHACORTA KEARNS Attending UnavailNancy Forte Admitting Unavailable Nancy Grace Attending Unavailable Nancy Grace Attending Unavailable MD Nancy Grace Admitting Unavailable MD Nancy Grace Attending Unavailable MD Nancy Grace Attending Unavailable MD Nancy Grace Admitting Unavailable MD Nancy Grace Attending Unavailable Estefania Reddy Attending Unavailable Nancy Grace Admitting Unavailable Nancy Grace Attending Unavailable Nancy Grace Attending Unavailable Nancy Grace Admitting Unavailable Nancy Grace Attending Unavailable RAMANDEEP PORTER Attending Unavailable Allergies Allergy Classification Reported Allergen(s) Allergy Type Date of Onset Reaction(s) Facility (13 sources) celecoxib; Translations: [CeleBREX] Drug Allergy [facility] Repository (1 source) Cetirizine Drug Allergy [facility] Repository (20 sources) celecoxib; Translations: [celecoxib] Drug Allergy Unknown (qualifier value), Anxiety (finding) [facility] (3 sources) celecoxib Drug Allergy Anxiety, Unknown [facility] Medications Current Medications Medication Drug Class(es) Dates Sig (Normalized) Sig (Original) 0.25 MG, 0.5 MG Dose 3 ML semaglutide 0.68 MG/ML Pen Injector [Ozempic] (3 sources) Start: 07-16-2024 Ozempic 2 mg/3 mL (0.25 mg or 0.5 mg dose) subcutaneous solution 0.25 mg, SubCutaneous, qWeek, # 3 mL, Refills(s) 0, Pharmacy: [facility]/pharmacy #[id number], 175.3, cm, 07/16/24 8:18:00 EST, Height/Length Dosing, 114, kg, 07/16/24 8:18:00 EST, Weight Dosing Start Date: 07/16/24 Status: Ordered acetaminophen 325 mg oral tablet (3 sources) Start: 12-30-2023 take 2 tablets by mouth every six hours as needed for pain acetaminophen 325 mg Tab 650 mg = 2 tab(s), Oral, q6hr, PRN Pain, Refills(s) 0 Start Date: 12/30/23 Status: Ordered amLODIPine 5 mg oral tablet (20 sources) Dihydropyridine Calcium Channel Pooja Start: 09-09-2023 take 10 mg by mouth once daily Amlodipine Active 10 MG PO Daily September 09, 2023 12:00am Start: 08-19-2023 take 2 tablets by mo ut once daily Norvasc 5 mg Tab 10 mg = 2 tab(s), Oral, Daily, # 60 tab(s), Refills(s) 6, [id number], cm, 08/19/23 11:59:00 EDT, Height/Length Dosing, 106, kg, 08/19/23 11:59:00 EDT, Weight Dosing Start Date: 08/19/23 Status: Ordered Start: 08-15-2023 amLODIPine 5 m g Tab See Instructions, TAKE 1 TABLET DAILY, # 90 tab(s), Refills(s) 1, Pharmacy: [facility], 175.3, cm, 01/13/24 9:06:00 EDT, Height/Length Dosing, 110.9, kg, 01/13/24 9:06:00 EDT, Weight Dosing Start Date: 01/30/24 Status: Ordered amoxicillin 500 mg oral capsule (2 sources) Penicillin-class Antibacterial Start: 01-05-2024 take 1 capsule by mouth every twelve hours amoxicillin 500 mg Cap 500 mg = 1 cap(s), Oral, q12hr, # 20 cap(s), Refills(s) 0, [id number] 175.3, cm, 01/05/24 7:50:00 EDT, Height/Length [...] (20 sources) HMG-CoA Reductase Inhibitor Start: 01-30-2024 atorvastatin 40 mg Tab See Instructions, TAKE 1 TABLET DAILY, # 90 tab(s), Refills(s) 3, Pharmacy: [facility], 175.3, cm, 07/09/24 8:31:00 EST, Height/Length Dosing, 114.2, kg, 07/09/24 8:31:00 EST, Weight Dosing Start Date: 07/10/24 Status: Ordered Start: 06-13-2023 take 1 tablet [...] day(s), # 14 tab(s), Refills(s) 0, Pharmacy: [facility], 172, cm, 12/22/23 7:41:00 EDT, Height/Length Dosing, 107.8, kg, 12/22/23 7:41:00 EDT, Weight Dosing Start Date: 12/22/23 Stop Date: 12/29/23 Status: Ordered Start: 09-27-2023 Cipro 500 mg T ab See Instructions, Take 1 tab day prior to procedure and 1 tab day of procdure - afterwards, # 2 tab(s), Refills(s) 0, Pharmacy: [facility]/pharmacy #[id number], 174.5, cm, 09/22/23 12:37:00 EDT, Height/Length Dosing, 105.9, kg, 09/22/23 12:37:00 EDT, Weight Dosing Start Date: 09/27/23 Status: Ordered Start: 08-03-2023 take 1 tablet by marly th twice daily Cipro 500 mg Tab 500 mg = 1 tab(s), Oral, BID, start 3 days prior to procedure, # 14 tab(s), Refills(s) 0, Pharmacy: [facility]/pharmacy #[id number], 174.5, cm, 07/27/23 11:17:00 EST, Height/Length Dosing, 102.3, kg, 07/27/23 11:17:00 EST, Weight Dosing Start Date: 08/03/23 Status: Ordered Start: 06-28-2023 Cipro 500 mg T ab See Instructions, Take 1 tab day prior to procedure and 1 tab day of procdure - afterwards, # 2 tab(s), Refills(s) 0, Pharmacy: [facility]/pharmacy #[id number], 175.4, cm, 06/28/23 7:53:00 EST, Height/Length [...] BID, # 180 tab(s), Refills(s) 0, Pharmacy: [facility], 172, cm, 12/27/23 7:51:00 EDT, Height/Length Dosing, 109.8, kg, 12/27/23 7:51:00 EDT, Weight Dosing Start Date: 12/27/23 Status: Ordered Freestyle Alejandra 2 Flash Glucose Monitoring 14 Day System ([place]) (6 sources) Start: 02-14-2023 Freestyle Libr e 2 Flash Glucose Monitoring 14 Day System ([place]) Freestyle Alejandra 2 Flash Glucose Monitoring 14 Day System ([place]), See Instructions, 1 EA, 0, Freestyle Alejandra Flash Glucose Monitoring 14 Day System ([place]), [facility]/pharmacy #[id number], Supply, 174.5, cm, 02/14/23 7:27:00 [...] System (Sensor). Replace sensor every 14 days., [facility]/pharmacy #[id number], Supply, 174.5, cm, 02/14/23 7:27:00 EDT, Height/Length Dosing, 115.8, kg, 02/14/23 7:27:00 EDT, Weight Dosing Start Date: 02/14/23 Status: Ordered gabapentin 100 mg oral capsule (7 sources) Anti-epileptic Agent Start: 05-18-2024 take 1 capsule by mouth once daily at bedtime gabapentin 100 mg Cap 100 mg = 1 cap(s), Oral, Once a day (at bedtime), # 30 cap(s), Refills(s) 0, Pharmacy: [facility]/pharmacy #[id number], 175.3, cm, 05/18/24 7:58:00 EST, Height/Length [...] day(s), # 10 tab(s), Refills(s) 0, Pharmacy: [facility]/pharmacy #[id number], 172, cm, 12/29/23 13:54:00 EDT, Height/Length Dosing, 109.8, kg, 12/29/23 13:54:00 EDT, Weight Dosing Start Date: 12/30/23 Stop Date: 01/09/24 Status: Ordered lisinopril 40 mg oral tablet (14 sources) Angiotensin Converting Enzyme Inhibitor Start: 12-30-2023 take 1 tablet by mouth once daily lisinopril 40 mg Tab 40 mg = 1 tab(s), Oral, Daily, # 90 tab(s), Refills(s) 4, Pharmacy: [facility], 175.3, cm, 01/13/24 9:06:00 EDT, Height/Length Dosing, 110.9, kg, 01/13/24 9:06:00 EDT, Weight Dosing Start Date: 05/07/24 Status: Ordered Start: 12-30-2023 End: 12-30-2023 lisinopril [...] 01/11/24-, # 30 tab(s), Refills(s) 3, Pharmacy: [facility]/pharmacy #[id number], 175.3, cm, 01/13/24 9:06:00 EDT, Height/Length Dosing, 110.9, kg, 01/13/24 9:06:00 EDT, Weight Dosing Start Date: 02/20/24 Status: Ordered Start: 01-30-2024 take 1 tablet by marly th three times daily magnesium oxide 400 mg Tab 400 mg, Oral, TID, dose change-last magnesium level completed 01/11/24-, # 90 tab(s), Refills(s) 3, Pharmacy: [facility], 175.3, cm, 01/13/24 9:06:00 EDT, Height/Length Dosing, 110.9, kg, 01/13/24 9:06:00 EDT, Weight Dosing Start Date: 01/30/24 Status: Ordered Start: 12-30-2023 take 1 tablet by marly th twice daily magnesium oxide 400 mg Tab 400 mg = 1 tab(s), Oral, BID, # 60 tab(s), Refills(s) 0, Pharmacy: [facility]/pharmacy #[id number], 172, cm, 12/29/23 13:54:00 EDT, Height/Length Dosing, 109.8, kg, 12/29/23 13:54:00 EDT, Weight Dosing Start Date: 12/30/23 Status: Ordered Start: 12-22-2023 take 1 tablet by marly once daily magnesium oxide 400 mg Tab 400 mg = 1 tab(s), Oral, Daily, # 60 tab(s), Refills(s) 0, Pharmacy: [facility], 172, cm, 12/22/23 7:41:00 EDT, Height/Length Dosing, 107.8, kg, 12/22/23 7:41:00 EDT, Weight Dosing Start Date: 12/22/23 Status: Ordered Start: 08-18-2023 take 1 tablet by [facility] once daily magnesium oxide 400 mg Tab 400 mg = 1 tab(s), Oral, Daily, # 60 tab(s), Refills(s) 0, Pharmacy: [facility]/pharmacy #[id number], 172, cm, 08/15/23 7:04:00 EDT, Height/Length Dosing, 107.2, kg, 08/15/23 7:04:00 EDT, Weight Dosing Start Date: 08/18/23 Status: Ordered Start: 06-15-2023 take 1 tablet by [facility] once daily magnesium oxide 400 mg Tab 400 mg = 1 tab(s), Oral, Daily, # 60 tab(s), Refills(s) 0, Pharmacy: [facility]/pharmacy #[id number], 175, cm, 06/14/23 10:52:00 EST, Height/Length Dosing, 102.3, kg, 06/14/23 10:52:00 EST, Weight Dosing Start Date: 06/15/23 Status: Ordered 24 hr metFORMIN hydrochloride 500 mg extended release oral tablet (20 sources) Biguanide Start: 04-12-2024 take 2 tablets by mouth twice daily Glucophage XR 500 mg Tab-ER 1,000 mg = 2 tab(s), Oral, BID, # 360 tab(s), Refills(s) 1, Pharmacy: [facility], 175.3, cm, 01/13/24 9:06:00 EDT, Height/Length Dosing, 110.9, kg, 01/13/24 9:06:00 EDT, Weight Dosing Start Date: 04/12/24 Status: Ordered Start: 07-26-2023 take 2 tablets by [facility] twice daily Glucophage XR 500 mg Tab-ER 1,000 mg = 2 tab(s), Oral, BID, # 360 tab(s), Refills(s) 1, Pharmacy: [facility], 174, cm, 07/26/23 10:21:00 EST, Height/Length Dosing, 104.8, kg, 07/26/23 10:21:00 EST, Weight Dosing Start Date: 07/26/23 Status: Ordered Start: 06-13-2023 take 2 tablets by [facility] twice daily Glucophage XR 500 mg [...] PO Twice daily April 04, 2017 12:00am metFORMIN (Gluco phage) 500 MG tablet every 12 (twelve) hours Active 24 hr metoprolol succinate 25 mg extended release oral tablet (20 sources) beta-Adrenergic Pooja Start: 08-19-2023 take 1 tablet by mouth once daily metoprolol 25 mg ER Tab 25 mg = 1 tab(s), Oral, Daily, # 30 tab(s), Refills(s) 6, Pharmacy: [facility]/pharmacy #[id number], 172, cm, 08/19/23 11:59:00 EDT, Height/Length Dosing, 106, kg, 08/19/23 11:59:00 EDT, Weight Dosing Start Date: 08/19/23 Status: Ordered [facility] Prescription (20 sources) Start: 05-26-2023 Start: 05-26-2023 [facility] Presc ription [facility] Prescription, See Instructions, 1 kit(s), 0, One Touch Ultra 2 glucose meter kit Use to tests sugars daily E11.9, [facility], Supply, 174.5, cm, 05/26/23 9:14:00 EST, Height/Length Dosing, 109.1, kg, 05/26/23 9:14:00 EST, Weight Dosing Start Date: 05/26/23 Status: Ordered Multiple Vitamins Tab (1 source) Start: 11-15-2012 take 1 tablet by mouth once daily Multiple Vitamins Tab 1 tab(s), Oral, Daily, Refill(s) 0, Prophylaxis Start Date: 11/15/12 Status: Ordered naproxen sodium 220 mg oral tablet (13 sources) Nonsteroidal Anti-inflammatory Drug Start: 01-13-2024 take [...] mouth once daily omeprazole 20 mg Cap-DR See Instructions, TAKE 1 CAPSULE BY MOUTH EVERY DAY, # 90 cap(s), Refills(s) 0, Pharmacy: [facility]ORE [id number], 175.3, cm, 07/16/24 8:18:00 EST, Height/Length Dosing, 114, kg, 07/16/24 8:18:00 EST, Weight Dosing Start Date: 08/14/24 Status: Ordered Start: 01-10-2024 take 1 capsule by mo [facility] once daily omeprazole 20 mg Cap-DR 20 mg = 1 cap(s), Oral, Daily, # 30 cap(s), Refills(s) 0 Start Date: 01/10/24 Status: Ordered Start: 11-14-2023 omeprazole 40 mg Cap-DR See Instructions, TAKE 1 CAPSULE DAILY, # 90 cap(s), Refills(s) 1, Pharmacy: [facility], 172, cm, 10/19/23 8:14:00 EDT, Height/Length Dosing, 108.4, kg, 10/19/23 8:26:00 EDT, Weight Dosing Start Date: 11/14/23 Status: Ordered Start: 08-15-2023 take 1 capsule by [facility] once daily omeprazole 40 mg Cap-DR 40 mg = 1 cap(s), Oral, Daily, # 90 cap(s), Refills(s) 0, Pharmacy: [facility], 172, cm, 08/15/23 7:04:00 EDT, Height/Length Dosing, 107.2, kg, 08/15/23 7:04:00 EDT, Weight Dosing Start Date: 08/15/23 Status: Ordered Start: 07-26-2023 take 1 capsule by [facility] once daily omeprazole 40 mg Cap-DR 40 mg = 1 cap(s), Oral, Daily, # 90 cap(s), Refills(s) 0, Pharmacy: [facility], 174, cm, 07/26/23 10:21:00 EST, Height/Length Dosing, 104.8, kg, 07/26/23 10:21:00 EST, Weight Dosing Start Date: 07/26/23 Status: Ordered Start: 01-20-2023 take 1 capsule by [facility] once daily omeprazole 40 mg Cap-DR [...] DAY, # 90 cap(s), Refills(s) 3, Pharmacy: [facility], 172, cm, 10/19/23 8:14:00 EDT, Height/Length Dosing, 108.4, kg, 10/19/23 8:26:00 EDT, Weight Dosing Start Date: 10/19/23 Status: Ordered Start: 09-13-2023 take 1 capsule by mo [facility] once daily potassium chloride 10 mEq Cap-ER See Instructions, TAKE 1 CAPSULE BY MOUTH EVERY DAY, # 90 cap(s), Refills(s) 1, Pharmacy: [facility] [id number], 172, cm, 08/19/23 11:59:00 EDT, Height/Length Dosing, 106, kg, 08/19/23 11:59:00 EDT, Weight Dosing Start Date: 09/13/23 Status: Ordered Start: 09-09-2023 take 10 mEq by mouth once iram y Potassium Chloride Active 10 MEQ PO Daily September 09, 2023 12:00am Start: 08-18-2023 take 1 capsule by [facility] once daily potassium chloride 10 mEq Cap-ER 10 mEq = 1 cap(s), Oral, Daily, # 30 cap(s), Refills(s) 0, [id number], 172, cm, 08/15/23 7:04:00 EDT, Height/Length Dosing, 107.2, kg, 08/15/23 7:04:00 EDT, Weight Dosing Start Date: 08/18/23 Status: Ordered Start: 06-15-2023 take 1 capsule by [facility] once daily potassium chloride 10 mEq Cap-ER 10 mEq = 1 cap(s), Oral, Daily, # 30 cap(s), Refills(s) 0, Pharmacy: [facility]/pharmacy #[id number], 175, cm, 06/14/23 10:52:00 EST, Height/Length Dosing, 102.3, kg, 06/14/23 10:52:00 EST, Weight Dosing Start Date: 06/15/23 Status: Ordered Start: 05-26-2023 End: 06-02-2023 take 1 tablet by mouth twice daily Potassium Chloride (Eqv-K-Tab) 20 mEq oral tablet, extended release 20 mEq = 1 tab(s), Oral, BID, X 7 day(s), # 14 tab(s), Refills(s) 0, Pharmacy: [facility]/pharmacy #[id number], 174.5, cm, 05/26/23 9:14:00 EST, Height/Length Dosing, 109.1, kg, 05/26/23 9:14:00 EST, Weight Dosing Start Date: 05/26/23 Stop Date: 06/02/23 Status: Ordered tamsulosin hydrochloride 0.4 mg oral capsule (20 sources) alpha-Adrenergic Pooja Start: 05-07-2024 take 1 capsule by mouth every twenty-four hours tamsulosin (Flomax) 0.4 MG 24 hr capsule Take 0.4 mg by mouth 05/07/2024 Active Start: 05-07-2024 take 1 capsule by mo uth once daily in the evening tamsulosin 0.4 mg Cap 0.4 mg = 1 cap(s), Oral, qPM, # 90 cap(s), Refills(s) 4, Pharmacy: [facility], 175.3, cm, 01/13/24 9:06:00 EDT, Height/Length Dosing, 110.9, kg, 01/13/24 9:06:00 EDT, Weight Dosing Start Date: 05/07/24 Status: Ordered Start: 01-20-2024 take 1 capsule by mo uth once daily in the evening tamsulosin 0.4 mg Cap 0.4 mg = 1 cap(s), Oral, qPM, # 90 cap(s), Refills(s) 3, Pharmacy: [facility], 175.3, cm, 01/13/24 9:06:00 EDT, Height/Length Dosing, 110.9, kg, 01/13/24 9:06:00 EDT, Weight Dosing Start Date: 01/20/24 Status: Ordered Start: 06-14-2023 take 1 capsule by mo uth once daily in the evening tamsulosin 0.4 mg Cap 0.4 mg = 1 cap(s), Oral, qPM, Refills(s) 0 Start Date: 06/14/23 Status: Ordered Start: 01-13-2023 take 1 capsule by mo uth at bedtime tamsulosin 0.4 mg Cap 0.4 mg = 1 cap(s), Oral, Bedtime, Refills(s) 0 Start Date: 01/13/23 Status: Ordered Therapeutic Multiple Vitamin Tab (10 sources) Start: 12-30-2023 Therapeutic Mu ltiple Vitamin [...] Daily, # 90 tab(s), Refills(s) 0, Pharmacy: [facility], 175.3, cm, 01/13/24 9:06:00 EDT, Height/Length Dosing, 110.9, kg, 01/13/24 9:06:00 EDT, Weight Dosing Start Date: 01/26/24 Status: Ordered Start: 12-30-2023 take 1 tablet by marly th once daily cyanocobalamin 1000 mcg Tab 1,000 mcg = 1 tab(s), Oral, Daily, # 30 tab(s), Refills(s) 0, Pharmacy: [facility]/pharmacy #[id number], 172, cm, 12/29/23 13:54:00 EDT, Height/Length Dosing, 109.8, kg, 12/29/23 13:54:00 EDT, Weight Dosing Start Date: 12/30/23 Status: Ordered Zofran ODT 4 mg Tab-Dis (14 sources) Start: 08-15-2023 take 1 tablet by mouth every eight hours as needed for nausea Zofran ODT 4 mg Tab-Dis 4 mg = 1 tab(s), Oral, q8hr, PRN Nausea/Vomiting, # 12 tab(s), Refills(s) 0, Pharmacy: [facility]/pharmacy #[id number], 172, cm, 08/15/23 7:04:00 EDT, Height/Length Dosing, 107.2, kg, 08/15/23 7:04:00 EDT, Weight Dosing Start Date: 08/15/23 Status: Ordered Start: 07-13-2023 take 1 tablet by marly th every eight hours as needed for nausea Zofran ODT 4 mg Tab-Dis 4 mg = 1 tab(s), Oral, q8hr, PRN Nausea/Vomiting, # 12 tab(s), Refills(s) 0, Pharmacy: [facility]/pharmacy #[id number], 175.4, cm, 06/28/23 7:53:00 EST, Height/Length [...] completed., # 2 cap(s), Refills(s) 0, Pharmacy: [facility]/pharmacy #[id number], 174.5, cm, 09/22/23 12:37:00 EDT, Height/Length Dosing, 105.9, kg, 09/22/23 12:37:00 EDT, Weight Dosing Start Date: 09/22/23 Status: Ordered Start: 05-26-2023 End: 06-02-2023 take 1 capsule by mouth four times daily Keflex 250 mg Cap 250 mg = 1 cap(s), Oral, QID, X 7 day(s), # 28 cap(s), Refills(s) 0, Pharmacy: [facility]/pharmacy #[id number], 174.5, cm, 05/26/23 9:14:00 EST, [...] 11:39am docusate sodium 50 mg / sennosides, half-way 8.6 mg oral tablet (3 sources) Start: 05-19-2017 End: 09-09-2023 take 2 tablets by mouth twice daily Sennosides-Docusate Sodium (Dok Plus) 8.6-50 mg Tablet Discontinued 2 TAB PO Twice daily May 19, 2017 1:00am [...] Discontinued 25 MCG TRANSDERML Every 72 hours 10 17May 19, 2017 1:00am September 09, 2023 11:39am [...] abuse in remission] Onset: 12-29-2023 01-20-2023 Chronic Comment on above: added per 07/13/2024 query response. Calculus of urinary tract (20 sources) Kidney stone; Translations: [Calculus of kidney] Onset: 06-21-2023 Episodic Cardiac dysrhythmias (20 sources) Tachycardia 01-20-2023 Episodic Chronic kidney disease (3 sources) Chronic kidney disease stage 2 07-24-2024 Chronic Conditions associated with dizziness or vertigo (20 sources) Dizziness 06-13-2023 Episodic Congestive heart failure; nonhypertensive (20 sources) Diastolic dysfunction 08-15-2023 Chronic Deficiency and [...] current use of drug therapy; Translations: [Other shelter (current) drug therapy] Onset: 12-29-2023 Episodic Other connective tissue disease (2 sources) Pain in right hand; Translations: [Pain in right hand] 07-18-2024 Episodic Other diseases of bladder and urethra (3 sources) Neurogenic dysfunction of the urinary bladder; Translations: [Neuromuscular dysfunction of bladder, unspecified] Onset: 12-30-2023 Chronic Other diseases of bladder and urethra (10 sources) 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 Other [...] prostate 01-13-2023 Episodic Other male genital disorders (20 sources) Prostatic intraepithelial neoplasia; Translations: [Prostatic intraepithelial neoplasia] Onset: 09-22-2023 Episodic Other nervous system disorders (1 source) Bilateral carpal tunnel syndrome; Translations: [Carpal tunnel syndrome, bilateral upper limbs] 05-22-2024 Chronic Other nervous system disorders (1 source) Polyneuropathy; Translations: [Polyneuropathy, unspecified] 05-22-2024 Chronic Other nervous system disorders (2 sources) Carpal tunnel syndrome of right wrist; Translations: [Carpal tunnel syndrome, right upper limb] 07-18-2024 Chronic Other nutritional; endocrine; and metabolic disorders (1 source) Obese class II; Translations: [Body mass index (BMI) 37.0-37.9, adult] Onset: 05-16-2023 Chronic Other nutritional; endocrine; and metabolic disorders (2 sources) Obesity; Translations: [Other obesity due to excess calories] Onset: 05-16-2023 Chronic Other nutritional; endocrine; and metabolic disorders (13 sources) Morbid obesity 05-16-2023 Chronic Comment on above: added per 05/13/2023 query response. Other nutritional; endocrine; and metabolic disorders (13 sources) Hypomagnesemia; Translations: [Hypomagnesemia] Onset: 12-29-2023 12-27-2023 Chronic Other nutritional; endocrine; and metabolic disorders (10 sources) Body mass index 30+ - obesity 07-09-2024 Chronic Other screening for suspected conditions (not mental disorders or infectious disease) (20 sources) Raised prostate specific antigen; Translations: [Elevated prostate specific antigen [PSA]] Onset: 06-21-2023 Episodic Residual codes; unclassified (20 sources) Edema 05-16-2023 Episodic Screening and history of mental health and substance abuse codes (6 sources) H/O: Disorder; Translations: [Personal history of [...] (20 sources) Patient encounter status 04-04-2023 Unclassified (17 sources) Finding of sensation of bladder 09-22-2023 Urinary tract infections (20 sources) Urinary tract infectious disease; Translations: [Urinary tract infection, site not specified] Onset: 06-21-2023 Episodic Results Test Name Value Interpretation Reference Range Facil ity CHEMISTRYOrdered By: SYSTEM SYSTEM on 08-22-2024 Magnesium [Mass/Vol] 0.6 mg/dL Invalid Interpretation Code 1.3 - 2.4 mg/dL Remisol Chem Comment on above: Result Comment: Crit ical Result Verified by Repeat Analysis Critical Result S_M.6 Called to and read back by: DR. NANCY GRACE at: 08/22/2024 18:46:44 by:CAROLINE Ambulatory Visit Summaryon 0 08-21-2024 Ambulatory Visit Summary Ambulatory Visit Summary ALICJA REYES :1955 Visit Date:08/21/2024 Ambulatory Visit Instructions Your Diagnosis Elevated PSA Incomplete bladder emptying Hypotonic neurogenic bladder BPH without urinary obstruction PIN (prostatic intraepithelial neoplasia) Your Care Team Attending Physician - Maureen MTZ, TOSHIA, Estefania Santiago Primary Care Physician - Nancy Grace MD This Is Your Medications List tamsulosin (tamsulosin 0.4 mg Cap) Contact prescribing physician if questions or concerns Misc Prescription (Misc DME Prescription) amlodipine (amLODIPine [...] mg or 0.5 mg dose) subcutaneous solution) Procedures Performed Arthroscopy, back surgery, Carpal tunnel release, Colonoscopy, hand and elbow surgery LEFT, Hand tendon repaired, Spinal fusion. Discharge Vitals Temperature (Temporal Artery) 37 ???C Heart Rate (Peripheral) 62 Respiratory Rate 16 Blood Pressure 116/79 Height 174 cm Height 69 in Weight 112.7 kg Weight 248.461 lb BMI 37.22 What to do next Scheduled Follow-Up Appointments Tuesday 8:20 AM EDT With: RAMANDEEP PORTER PA-C Where: [facility] [address] [place] [address]- Tuesday 8:00 AM EDT With: Nancy Grace MD Where: [place] [id number]- Tuesday 8:15 AM EDT With: Nancy Grace MD Where: [address] [id number] Tuesday2025 8:00 AM EST With: Where: [address] [phone]- You Need to Schedule the Following Appointments Follow Up with Orzech COLLISION TECHNICIAN, PRIVATE INVESTIGATOR [employer]ILLANCE-C, Estefania X, FAM, URL When: Where: Medications What How Much When Why Instructions Unchanged tamsulosin (tamsulosin 0.4 mg Cap) 1 Capsules By Mouth Once a day (in the evening) Unchanged amlodipine (amLODIPine 5 mg Tab) See instructions TAKE 1 TABLET DAILY Contact prescribing physician if questions or concerns Unchanged atorvastatin (atorvastatin 40 mg Tab) See instructions TAKE 1 TABLET DAILY Contact prescribing physician if questions or concerns Unchanged gabapentin (gabapentin 100 mg Cap) 1 Capsules By Mouth Once a day (at bedtime) Numbness or tingling Contact prescribing physician if questions or concerns Unchanged lisinopril (lisinopril 40 mg Tab) 1 Tablets By Mouth Every day Contact prescribing physician if questions or concerns Unchanged magnesium oxide (magnesium oxide 400 mg Tab) 400 Milligram By Mouth 3 times a day dose change-last magnesium level completed - Contact prescribing physician if questions or concerns Unchanged metformin (Glucophage XR 500 mg Tab-ER) 2 Tablets By Mouth 2 times a day Contact prescribing physician if questions or concerns Unchanged metoprolol (metoprolol 25 mg ER Tab) 1 Tablets By Mouth Every day Contact prescribing physician if questions or concerns Unchanged Misc Prescription (Misc DME Prescription) 'Number 1' Glucometer and test strips testing BS twice daily- will bring equipment to [facility] f/ u to update brand Contact prescribing physician if questions or concerns Unchanged multivitamin (Therapeutic Multiple Vitamin Tab) See instructions Oral Daily Contact prescribing physician if questions or concerns Unchanged naproxen (Aleve) 220 Milligram By Mouth Every 12 hours se as needed Contact prescribing physician if questions or concerns Unchanged omeprazole (omeprazole 20 mg Cap-DR) See instructions TAKE 1 CAPSULE BY MOUTH EVERY DAY Contact prescribing physician if questions or concerns Unchanged potassium chloride (potassium chloride 10 mEq Cap-ER) See instructions TAKE 1 CAPSULE BY MOUTH EVERY DAY Contact prescribing physician if questions or concerns Unchanged semaglutide (Ozempic 2 mg/ 3 mL (0.25 mg or 0.5 mg dose) subcutaneous solution) 0.25 Milligram Subcutaneous Every week Type 2 diabetes mellitus with hypercholesterolemia BMI 37.0-37.9, adult Obesity (BMI 30-39.9) Former smoker Hypomagnesemia Contact prescribing physician if questions or concerns Allergies CeleBREX (Anxiety, Unknown) Problems Ongoing - Any problem that you are currently receiving treatment for. Alcohol abuse with other alcohol-induced disorder Alcohol-induced polyneuropathy Blood in urine BMI 37.0-37.9, adult BPH w (more content not included)... [facility] Urology Office/Clinic Noteon 08-21-2024 Urology Office/Clinic Note Urology Office/Clinic Note Chief Complaint 6 month with PSA HPI Staff 69 year old male patient here for 6 month follow up with PSA. Previous Dx: Elevated PSA, PIN, BPH with urinary obstruction, feeling of incomplete bladder emptying, and urinary retention. S/p TRUS/bx intuitive 09/09/23. MRI of prostate 07/21/23. PSA 01/11/24 - 1.8 & 16.7% 08/07/24 - 8.1 % 7.4% *Flomax 0.4 mg qPM. IPSS score today is 26 (20) Pt states he has had these urinary symptoms for quite some time. Pt does CIC 3x daily. Denies blood in or urine or pain of any kind. History of Present Illness Tests reviewed: UA & PSA I have reviewed the previous health record [...] HPI. Physical Exam Vitals & Measurements T: 37 ???C(Temporal Artery) HR: 62(Peripheral) RR: 16 BP: 116/79 HT: 69 in HT: 174 cm WT: 112.7 kg WT: 248.461 lb BMI: 37.22 General Appearance: alert, no distress, well nourished, well developed male. Assessment/Plan Alicja 69 male presents here today for 69 year old male patient here for 6 month follow up with PSA. 1. Elevated PSA (R97.20: Elevated prostate specific antigen [PSA]) PSA: 06/22/11 - 0.41 11/09/18 - 0.41 01/10/20 - 0.36 02/03/21 - 0.44 07/13/22 - 0.43 04/04/23 - 6.1 01/11/24 - 1.8 & 16.7% 08/07/24 - 8.1 % 7.4% (PSAD 0.31) MRI of prostate 07/21/23 [facility] [place] A focal area involving the anterior aspect of the R peripheral zone at the level of the mid gland measuring 5 x 4 mm. No gross or subcapsular extension is seen. PI-RADS 4. Prostate volume 26 ml. S/p TRUS/bx intuitive 09/09/23. Path report neg for malignancy. PIN is present. [3] Reviewed PSA levels with patient. PSA increasing from last level drawn. Denies fam hx of prostate cancer. UA today w/ small leuks, Denies sxs of UTI or difficulty cathing. Denies sxs of prostatitis We discussed having a select MDX. The purpose and benefits of having one done was also discussed. At this time patient agrees with having this done. -Select MDX -will discuss results/next step w/ [facility] Follow up Select MDX or sooner if needed. Pt understands and agrees with plan. 2. Incomplete bladder emptying (R33.9: Retention of urine, unspecified) 06/04/23 - [facility] ER due to chills and dizziness [...] outputs. UA today shows trace-intact blood and small leuks. States he is currently on amoxicillin from recent ER visit and was found to have UTI. Educated pt he will be colonized due to catheterization. Discussed he is not obstructed so is not a candidate for prostate procedures. No urinary complaints, denies any dysuria with CIC. -Increase CIC 3x/day 3. Hypotonic neurogenic bladder (N31.9: Neuromuscular dysfunction of bladder, unspecified) See #1. 4. BPH without urinary obstruction (N40.0: Benign prostatic hyperplasia without lower urinary tract symptoms) MRI of prostate 07/21/23 [facility] [place] - Prostate volume 26 cc. Grossly distended urinary bladder with partially visualized bilateral hydroureter. TALAMANTES is suspected and fol (more content not included)... [facility] Comment on above: Result Comment: Elec tronically Signed By: TOSHIA Reddy APRN, [place] X\.br\Date and Time Signed: 08/21/24 10:00 EDT\.br\Electronically Co-Signed By: Analilia Espino\.br\Date and Time Co-Signed: 08/21/24 09:41 EDT CHEMISTRYOrdered By: SYSTEM SYSTEM on 08-17-2024 Free PSA [Mass/Vol] 0.6 ng/mL Invalid Interpretation Code Remisol Chem Comment on above: Interpretive Data: T he concentration of free PSA and total PSA determined with assays from different manufacturers can vary due to differences in assay methods and specificity. Values obtained with different claim processor's assays cannot be used interchangeably. The methodology used to obtain this result was chemiluminescence using [employer]'s Access Hybritech PSA reagent and Access Hybritech free PSA reagent. Free PSA/Total PSA [Mass fraction] 7.4 % Low >=25.0% Remisol Chem Prostate specific Ag [Mass/Vol] 8.1 ng/mL High 0.1 - 3.5 ng/mL Remisol Chem Comment on above: Interpretive Data: T he concentration of PSA determined by different manufacturers can vary due to differences in assay methods and reagent specificity. Values obtained from different assay methods cannot be used interchangeably. The methodology used for this result was chemiluminescence using [employer]raim Lazara's Access Hybritech PSA reagent. BASIC METABOLIC PANLon 08-14 Anion gap [Moles/Vol] 12 mmol/L Normal 5-15 [facility] Comment on above: Performed By: #### B MP #### [facility] ([id number]) [address], [address] [place] [address] Calcium [Mass/Vol] 9.3 mg/dL Normal 8.5-10.[address] [facility] Comment on above: Performed By: #### B MP #### [facility] ([id number]) [address], [address] [place] [address] Chloride [Moles/Vol] 100 mmol/L Normal 98-109 [facility] Comment on above: Performed By: #### B MP #### [facility] ([id number]) [address], [address] [place] [address] CO2 [Moles/Vol] 24 mmol/L Normal 22-32 [facility] Comment on above: Performed By: #### B MP #### [facility] ([id number]) [address] [place] [address] Creatinine [Mass/Vol] 1.35 mg/dL High 0.60-1.30 [facility] Comment on above: Result Comment: METH OD TRACEABLE TO IDMS STANDARD Performed By: #### B MP #### [facility] ([id number]) [address] [place] [address] GFR/1.73 sq M.predicted among non-blacks MDRD (S/P/Bld) [Vol rate/Area] 56 mL/min/{1.73_m2} Low >59 [facility] Comment on above: Result Comment: Reported eGFR is based on the CKD-EPI 2020 equation that does not use a race coefficient. Performed By: #### B MP #### [facility] ([id number]) [address] [place] [address] Glucose [Mass/Vol] 204 mg/dL High 65-[address] [facility] Comment on above: Performed By: #### B MP #### [facility] ([id number]) [address] [place] [address] Potassium [Moles/Vol] 4.3 mmol/L Normal 3.5-5.0 [facility] Comment on above: Performed By: #### B MP #### [facility] ([id number]) [address] [place] [address] Sodium [Moles/Vol] 136 mmol/L Normal 134-[address] [facility] Comment on above: Performed By: #### B MP #### [facility] ([id number]) [address] [place] [address] Urea nitrogen [Mass/Vol] 18 mg/dL Normal 5-27 [facility] Comment on above: Performed By: #### B MP #### [facility] ([id number]) [address] [place] [address] Basic metabolic 1998 panelon 08-14-2024 Anion gap [Moles/Vol] 12 mmol/L 5 - 15 mmol/L [facility] Calcium [Mass/Vol] 9.3 mg/dL 8.5 - 10.5 mg/dL [facility] Chloride [Moles/Vol] 100 mmol/L 98 - 109 mmol/L [facility] CO2 [Moles/Vol] 24 mmol/L 22 - 32 mmol/L [facility] Creatine [Mass/Vol] 1.35 mg/dL High 0.60 - 1.30 mg/d L [facility] Comment on above: METHOD TRACEABLE TO IDMS STANDARD GFR/1.73 sq M.predicted among non-blacks MDRD (S/P/Bld) [Vol rate/Area] 56 mL/min/{1.73_m2} Low - PINF [facility] Comment on above: Reported eGFR is based on the CKD-EPI 2020 equation that does not use a race coefficient. PERFORMED AT [facility] [address],[place] [address] Glucose [Mass/Vol] 204 mg/dL High 65 - 99 mg/dL [facility] Interpretation and review of laboratory results Abnormal [facility] Potassium [Moles/Vol] 4.3 mmol/L 3.5 - 5.0 mmol /L [facility] Sodium [Moles/Vol] 136 mmol/L 134 - 146 mmol/L [facility] Urea nitrogen [Mass/Vol] 18 mg/dL 5 - 27 mg/dL [facility] Family Medicine Office/Clini c Noteon 08-08-2024 Family Medicine Office/Clinic Note Family Medicine Office/Clinic Note Chief Complaint Subsequent Medicare Wellness History of Present Illness Covid-19, MERS, Ebola Screen *Contact With Person With Highly Contagious Disease Like Ebola/MERS/COVID-19 AND Have One or More of the Symptoms Below : No *Travel to a Country With Wide-Spread Ebola/MERS/COVID-19 in the Past 21 Days AND Have One or More of the Symptoms Below : No Patient Reported Covid-19 Testing : No *Verify Droplet, Contact Precautions for Ebola (Reference for CDC) : N/A *Verify Airborne, Droplet Precautions for MERS/COVID-19 : N/A Radha Tao - 07/09/2024 8:12 EST Medicare/Medicaid Summary Chief Complaint : Subsequent Medicare Wellness Patient Counseled : Nutrition, Physical activity, Elevated BMI Height/Length Measured : 175.3 cm(Converted to: 5 ft 9 in, 69.02 in) Weight Measured : 114.2 kg(Converted to: 251 lb 12 Ounces, 251.768 lb) Body Mass Index Measured : 37.16 kg/m2 Height in Inches : 69 in Weight in Pounds : 251.768 lb Systolic Blood Pressure : 138 mmHg Diastolic Blood Pressure : 82 mmHg Blood Pressure Location : Left arm Blood Pressure Position : Sitting O2 Sat Resting/Exertion Alpha : Resting Peripheral Pulse Rate : 89 bpm Respiratory Rate : 18 br/min SpO2 : 97 % Pain Present : No actual or suspected pain Numeric Rating Pain Score : 4 Radha Tao - 07/09/2024 8:12 EST Hearing and Vision Screening FT FT Whisper Test Comments : patient reports hearing loss. Does not wear hearing aides. Has had hearing checked recently. Vision Screen Comments : Does not wear corrective lens. Had eyes check 2-3 years ago. Radha Tao 07/09/2024 8:12 EST Advance Directive FT Advance Directive : No Patient Wishes to Receive Further Information on Advance Directives : Yes Organ Donation Consent : Yes Radha Tao - 07/09/2024 8:12 EST Procedures / Surgeries FT - Procedure History (As Of: 07/09/2024 08:31:11 EST) Anesthesia Minutes: 0 ; Procedure Name: back surgery ; Procedure Minutes: 0 ; Comments: 11/15/2012 8:03 Susan Howard RN lower back ; Last Reviewed Dt/Tm: 07/09/2024 08:20:31 EST Anesthesia Minutes: 0 ; Procedure Name: Arthroscopy right knee ; Procedure Minutes: 0 ; Comments: 11/15/2012 8:04 Susan Howard RN right ; Last Reviewed Dt/Tm: 07/09/2024 08:20:31 EST Anesthesia Minutes: 0 ; Procedure Name: hand and elbow surgery LEFT ; Procedure Minutes: 0 ; Comments: 11/15/2012 8:04 Susan Howard RN left ; Last Reviewed Dt/Tm: 07/09/2024 08:20:31 EST Anesthesia Minutes: 0 ; Procedure Name: Hand tendon repaired LEFT ; Procedure Minutes: 0 ; Comments: 01/13/2023 11:49 Ruthann Mathur LPN left thumb tendon ; Last Reviewed Dt/Tm: 07/09/2024 08:20:31 EST Anesthesia Minutes: 0 ; Procedure Name: Carpal tunnel release LEFT ; Procedure Minutes: 0 ; Last Reviewed Dt/Tm: 07/09/2024 08:20:31 EST Anesthesia Minutes: 0 ; Procedure Name: Spinal fusion x2 ; Procedure Minutes: 0 ; Last Reviewed Dt/Tm: 07/09/2024 08:20:31 EST Anesthesia Minutes: 0 ; Procedure Name: Colonoscopy ; Procedure Minutes: 0 ; Comments: 01/13/2024 8:59 EDT - Alicja Castellon years ago-- ; Last Reviewed Dt/Tm: 07/09/2024 08:20:31 EST Family History Family History (As Of: 07/09/2024 08:31:11 EST) Mother: Relation: Mother ; Gender: Female ; Nomenclature: Diabetes mellitus type 2 ; Value: Positive Father: Relation: Father ; Gender: Male ; Nomenclature: Primary malignant neoplasm of colon ; Value: Positive Medicare/Medicaid Social History FT Social History (As Of: 07/09/2024 08:31:11 EST) Alcohol: Medium Risk Current, Beer, Daily Comments: 07/09/2024 8:21 - Radha Tao: drinks beer 2-3 times a week, 1-2. 12/29/2023 17:32 - Susanne Robles RN M: 6-10 beers daily (Last Updated: 07/09/2024 08:21:55 EST by Radha Tao) Tobacco: Low Risk Former smoker, quit more than 30 days ago, quit 2005 Tobacco Use:. Comments: 01/13/2024 9:00 - Alicja Castellon: uses chewing tobacco 07/25/2023 14:15 - Alicja Castellon: former smoker, quit 2005 (Last Updated: 05/18/2024 12:51:20 [facility] by Gil Conley) Former smoker, quit more than 30 days ago Tobacco Use:. Never Smokeless Tobacco Use:. Cigarettes, Stopped age 50 Years. Household tobacco concerns: No. Yes Comments: 07/09/2024 8:22 - Radha Tao: former smoker. stopped at age 50. (Last Updated: 07/09/2024 08:22:43 EST by Radha Tao) Substance Abuse: Denies Substance Abuse Never Comments: 07/09/2024 8:22 - Radha Tao: denies use. (Last Updated: 07/09/2024 08:22:58 EST by Radha Tao) Health Risk Assessment FT HRA little interest or pleasure? : No HRA down, depressed, or hopeless? : No Hazards in your house? : No Fall Risk Past Year : No Worried About Falling : No Use a Cane or Walker? : No Someone Helps You in the Morning : No Fallen or felt dizzy standing up? : No Assistance with personal care? : No Trouble taking meds correctly? : No HRA Pain Present : Yes Primary Pain Lo (more content not included)... [facility] Comment on above: Result Comment: Elec tronically Signed By: Nancy Grace MD\.br\Date and Time Signed: 08/08/24 10:11 EST\.br\Electronically Co-Signed By: Radha Tao\.br\Date and Time Co-Signed: 07/09/24 09:23 EST Ambulatory Visit Summaryon 0 07-16-2024 Ambulatory Visit Summary Ambulatory Visit Summary ALICJA REYES :1955 Visit Date:07/09/2024 Ambulatory Visit Instructions Your Diagnosis Encounter for subsequent annual wellness visit (AWV) in Medicare patient Type 2 diabetes mellitus with hypercholesterolemia Major depressive disorder, recurrent, moderate Primary hypertension Hypercholesterolemia, Pure hypercholesterolemia, unspecified BPH without urinary obstruction Gastroesophageal reflux disease without esophagitis Advanced directives, counseling/discussion Obesity due to excess calories Your Care Team Attending Physician - Nancy Grace MD Primary Care Physician - Nancy Grace MD. This Is Your Medications List [facility] ([facility] Prescription) amlodipine (amLODIPine 5 mg Tab) [...] Spinal fusion. Discharge Vitals Heart Rate (Peripheral) 89 Respiratory Rate 18 Blood Pressure 138/82 Height 175.3 cm Height 69 in Weight 114.2 kg Weight 251.768 lb BMI 37.16 What to do next Scheduled Follow-Up Appointments Tuesday 9:20 AM EST With: TOSHIA Reddy APRN, Estefania Santiago Where: [facility] [address] [place] [address]- Tuesday 8:15 AM EDT With: Nancy Grace MD Where: [address] [address]- Tuesday 8:15 AM EDT With: Nancy Grace MD Where: [address] [address]- Tuesday2025 8:00 AM EST With: Where: [address] [address]- Medications What How Much When Why Instructions [...] BS twice daily- will bring equipment to [facility] f/ u to update brand Unchanged multivitamin [...] you for choosing us for your care. Education Materials Heartburn Heartburn is a type of pain or discomfort t (more content not included)... [facility] Ambulatory Visit Summary Ambulatory Visit Summary ALICJA REYES :1955 Visit Date:07/16/2024 Ambulatory Visit Instructions Your Diagnosis Type 2 diabetes mellitus with hypercholesterolemia BMI 37.0-37.9, adult Obesity (BMI 30-39.9) Former smoker Hypomagnesemia Pure hypercholesterolemia, unspecified Your Care Team Attending Physician - Nancy Grace MD Primary Care Physician - Nancy Grace MD This Is Your Medications List [facility] ([facility] Prescription) amlodipine (amLODIPine 5 mg Tab) [...] 9:20 AM EST With: TOSHIA Reddy APRN, Estefania Santiago Where: [facility] [address] [place] [address]- Tuesday 8:15 AM EDT With: Nancy Grace MD Where: [address] [phone]- Tuesday 8:15 AM EDT With: Nancy Grace MD Where: [address] [phone]- Tuesday2025 8:00 AM EST With: Where: [address] [phone]- Medications What How Much When Why Instructions New semaglutide (Ozempic 2 mg/ 3 mL (0.25 mg or 0.5 mg dose) subcutaneous solution) 0.25 Milligram Subcutaneous Every week Type 2 diabetes mellitus with hypercholesterolemia BMI 37.0-37.9, adult Obesity (BMI 30-39.9) Former smoker Hypomagnesemia Pickup at [facility]/pharmacy #[id number] Unchanged amlodipine (amLODIPine 5 mg Tab) See [...] BS twice daily- will bring equipment to [facility] f/ u to update brand Unchanged multivitamin [...] a day (in the evening) Pharmacy Information [id number]: [address] [place], [place] [phone] Allergies CeleBREX (Anxiety, Unknown) Problems Ongoing - [...] You ma (more content not included)... [facility] CHEMISTRYOrdered By: SYSTEM SYSTEM on 07-16-2024 Magnesium [Mass/Vol] 0.5 mg/dL Invalid Interpretation Code 1.3 - 2.4 mg/dL Rem[facility] Chem Comment on above: Result Comment: Crit ical Result Verified by Previous Result Critical Result S_M.5 Called to and read back by: NANCY GRACE at: 07/16/2024 18:21:49 by:KENA Family Medicine Office/Bony dawkins Noteon 07-16-2024 Family Medicine Office/Clinic Note Family [...] The patient has been managing this with [id number] magnesium supplements. He denies any symptoms of [...] qWeek, # 3 mL, Refills(s) 0, Pharmacy: [facility] #[id number], 175.3, cm, 07/16/24 8:18:00 EST, Height/Length Dosing, 114, kg, 07/16/24 8:18:00 EST, Weight Dosing Body Mass Index (BMI) documented 3008F Current tobacco non-user 1036F Depression Screening Negative 3352F Influenza immunization status assessed 1030F Lab Specimen Collect 14155 Magnesium Level Medication list documented in medical [...] qWeek, # 3 mL, Refills(s) 0, Pharmacy: [facility]/pharmacy #[id number], 175.3, cm, 07/16/24 8:18:00 EST, Height/Length Dosing, 114, kg, 07/16/24 8:18:00 EST, Weight Dosing Magnesium Level 3. Obesity (BMI 30-39.9) (E66.9: Obesity, unspecified) Encouraged dietary modifications and physical activity. Consideration for medications that could provide weight loss benefits inclusive to their primary use, such as Ozempic. Ordered: semaglutide, 0.25 mg, SubCutaneous, qWeek, # 3 mL, Refills(s) 0, Pharmacy: [facility]/pharmacy #[id number], 175.3, cm, 07/16/24 8:18:00 EST, Height/Length Dosing, 114, kg, 07/16/24 8:18:00 EST, Weight Dosing Magnesium Level 4. Former smoker (Z87.891: Personal history of nicotine dependence) Reinforced smoking cessation and its benefits on long-term health outcomes. Ordered: semaglutide, 0.25 mg, SubCutaneous, qWeek, # 3 mL, Refills(s) 0, [facility] [id number], 175.3, cm, 07/16/24 8:18:00 EST, Height/Length Dosing, 114, kg, 07/16/24 8:18:00 EST, Weight Dosing Magnesium Level 5. Hypomagnesemia (E83.42: Hypomagnesemia) Blood sample required to reassess serum magnesium levels. Depending on results, magnesium supplementation may be adjusted. Ordered: sema (more content not included)... [facility] Comment on above: Result Comment: Elec tronically Signed By: Ruiz REYNOLDS, Nancy Thompson\.br\Date and Time Signed: 07/16/24 08:57 EST Magnesiumon 07-16-2024 Magnesium [Mass/Vol] 0.5 mg/dL Abnormal 1.3-2.4 [facility] Comment on above: Result Comment: Crit ical Result Verified by Previous Result Critical Result S_M.5 Called to and read back by: NANCY GRACE at: 07/16/2024 18:21:49 by:KENA Performed By: #### 2 [id number] #### [facility] [address] [place] [address] Pre-Visit Planningon 025 Pre-Visit Planning Pre-Visit Planning From: Valarie Solis To: Nancy Grace MD; Sent: 07/06/2024 11:24:03 EST Subject: Pre-Visit Planning Due Date/Time: 07/06/2024 11:24:00 EST Caller Name: ALICJA REYES; Caller Number: , Fl Dr. Grace. During a pre-visit planning chart review, I noted the following documentation in the medical record: Current Problem List: Alcohol abuse uncomplicated, Hypokalemia, Hypomagnesemia, Major depressive disorder recurrent moderate, HTN, and Tachycardia. Current Medication List: amlodipine, lisinopril, magnesium oxide, metoprolol, and potassium chloride. 07/25/2023 MWV: AUDIT Score =5. 12/29/2023 [facility] IP Nephrology Consult Note: Alcoholism: Discussed with him stopping his alcohol use. He states that he would rather than stop drinking alcohol. He currently drinks 6-10 beers per day. Consult case management for rehabilitation. [facility] protocol. 01/05/2024 Office Visit Note: HPI- Still [...] feel free to contact me at extension [phone]. Thank you! Valarie Solis LPN Clinical Game Engineer [address] [address] Extension: [phone] [email or web address] From: Nancy Grace MD To: Valarie Solis; Sent: 07/09/2024 07:51:01 EST Subject: RE: Pre-Visit Planning Caller Name: ALICJA REYES; Caller Number: H , M His alcohol abuse is complicated for electrolyte abnormalities and likely Neuropathy. I do not know how to code that. From: Valarie Solis To: Nancy Grace MD; Sent: 07/13/2024 11:43:18 EST Subject: Pre-Visit Planning Due Date/Time: 07/13/2024 11:42:00 EST Caller Name: ERIC ALICJA D; Caller Number: H , M Hi Dr. Grace, would you like me to add either or both of the following diagnoses to the Chronic Problem List? -Alcohol abuse with other alcohol-induced disorder (Hypokalemia and Hypomagnesemia) -Alcohol-induced polyneuropathy From: Nancy Grace MD To: Valarie Solis; Sent: 07/16/2024 09:39:43 EST Subject: RE: Pre-Visit Planning Caller Name: ERIC ALICJA Bharathi; Caller Number: H , M Yes for both. He does not like to admit this is the cause, I think I discussed this with him at last visit. [facility] Ambulatory Visit Summaryon 0 07-09-2024 Ambulatory [...] unspecified Your Care Team Attending Physician - Nancy Grace MD Primary Care Physician - Nancy Grace MD This Is Your Medications List Misc Prescription ([facility] Prescription) amlodipine (amLODIPine 5 mg Tab) [...] APRN, [place] Where: [facility] [address] [address]- Tuesday 8:15 AM EDT With: Nancy Grace MD Where: [address] [address]- Tuesday 8:15 AM EDT With: Nancy Grace MD Where: [address] [address]- Medications What How Much When Why Instructions [...] BS twice daily- will bring equipment to [facility] f/ u to update brand Unchanged multivitamin [...] for choosing us for your care. Normal [facility] CBC w/ Auto Diffon 5 Basophils/100 WBC (Bld) 0.7 % Normal 0.0-2.0 [facility] Comment on above: Performed By: #### 2 [id number] #### [facility] [address] [place] [address] Basophils/Leukocytes Auto (Bld) [Pure # fraction] 0.0 E9/L Normal 0.0-0.2 [facility] Comment on above: Performed By: #### 2 [id number] #### [facility] [address] [place] [address] Eosinophils (Bld) [#/Vol] 0.2 E9/L Normal 0.0-0.5 [facility] Comment on above: Performed By: #### 2 [id number] #### [facility] [address] [place] [address] Eosinophils/100 WBC (Bld) 3.3 % Normal 0.0-8.0 [facility] Comment on above: Performed By: #### 2 [id number] #### [facility] [address] [place] [address] Erythrocyte distribution width (RBC) [Ratio] 12.9 % Normal 10.9-14.2 [facility] Comment on above: Performed By: #### 2 [id number] #### [facility] [address] [place] [address] Hematocrit (Bld) [Volume fraction] 39.3 % Normal 37.7-49.0 [facility] Comment on above: Performed By: #### 2 [id number] #### [facility] [address] [place] [address] Hemoglobin (Bld) [Mass/Vol] 13.3 g/dL Low 13.5-17.5 [facility] Comment on above: Performed By: #### 2 707913 #### [facility] [address] [place] [address] Lymphocytes (Bld) [#/Vol] 1.4 E9/L Normal 1.0-4.0 [facility] Comment on above: Performed By: #### 2 108298 #### [facility] [address] [place] [address] Lymphocytes/100 WBC (Bld) 21.3 % Normal 14.0-50.0 [facility] Comment on above: Performed By: #### 2 352748 #### [facility] [address] [place] [address] MCH (RBC) [Entitic mass] 33.6 pg Normal 27.0-34.0 [facility] Comment on above: Performed By: #### 2 700589 #### [facility] [address] [place] [address] MCHC (RBC) [Mass/Vol] 33.9 g/dL Normal 31.4-36.[address] [facility] Comment on above: Performed By: #### 2 602404 #### [facility] [address] [place] [address] MCV (RBC) [Entitic vol] 99.1 fL Normal 80.0-100.0 [facility] Comment on above: Performed By: #### 2 302464 #### [facility] [address] [place] [address] Monocytes (Bld) [#/Vol] 0.7 E9/L Normal 0.2-1.0 [facility] Comment on above: Performed By: #### 2 [id number] #### [facility] [address] [place] [address] Neutrophils (Bld) [#/Vol] 4.1 E9/L Normal 2.0-7.5 [facility] Comment on above: Performed By: #### 2 708145 #### [facility] [address] [place] [address] Neutrophils/100 WBC (Bld) 63.7 % Normal 36.0-75.0 [facility] Comment on above: Performed By: #### 2 460735 #### [facility] [address] [place] [address] Platelet mean volume (Bld) [Entitic vol] 8.0 fL Normal 6.4-10.8 [facility] Comment on above: Performed By: #### 2 393281 #### [facility] [address] [place] [address] Platelets (Bld) [#/Vol] 249.0 E9/L Normal 150.0-500.0 [facility] Comment on above: Performed By: #### 2 361909 #### [facility] [address] [place] [address] RBC (Bld) [#/Vol] 4.0 E12/L Low 4.3-5.9 [facility] Comment on above: Performed By: #### 2 271119 #### [facility] [address] [place] [address] WBC corrected for nucl RBC Auto (Bld) [#/Vol] 6.4 E9/L Normal 4.0-11.0 [facility] Comment on above: Performed By: #### 2 633898 #### [facility] [address] [place] [address] CHEMISTRYOrdered By: SYSTEM SYSTEM on 07-09-2024 Albumin [...] 1.9 mg/dL Remisol Chem CHEMISTRYOrdered By: Isidro mejia on 07-09-2024 HbA1c (Bld) [Mass fraction] 8.0 % High <=5.9% [facility] ChemAutoSS CMPon 07-09-2024 Albumin [Mass/Vol] 4.3 g/dL Normal 3.3-5.0 [facility] Comment on above: Performed By: #### 2 757175 #### [facility] [address] [place] [address] Albumin/Globulin (S) [Mass conc ratio] 1.7 Normal 1.1-2.2 [facility] Comment on above: Performed By: #### 2 024593 #### [facility] [address] [place] [address] ALP [Catalytic activity/Vol] 75 Int._Unit/L Normal 21-98 [facility] Comment on above: Performed By: #### 2 630286 #### [facility] [address] [place] [address] ALT No additional P-5'-P [Catalytic activity/Vol] 16 Int._Unit/L Normal 6-46 [facility] Comment on above: Performed By: #### 2 313304 #### [facility] [address] [place] [address] Anion gap [Moles/Vol] 14 mmol/L Normal 6-[address] [facility] Comment on above: Performed By: #### 2 193676 #### [facility] [address] [place] [address] AST [Catalytic activity/Vol] 17 Int._Unit/L Normal 5-43 [facility] Comment on above: Performed By: #### 2 588742 #### [facility] [address] [place] [address] Bilirubin [Mass/Vol] 0.9 mg/dL Normal 0.0-1.1 [facility] Comment on above: Performed By: #### 2 636997 #### [facility] [address] [place] [address] Calcium [Mass/Vol] 8.0 mg/dL Low 8.9-11.1 [facility] Comment on above: Performed By: #### 2 143974 #### [facility] [address] [place] [address] Chloride [Moles/Vol] 102 mmol/L Normal 101-111 [facility] Comment on above: Performed By: #### 2 507656 #### [facility] [address] [place] [address] CO2 [Moles/Vol] 27 mmol/L Normal 21-31 [facility] Comment on above: Performed By: #### 2 248982 #### [facility] [address] [place] [address] Creatinine [Mass/Vol] 1.3 mg/dL Normal 0.5-1.[address] [facility] Comment on above: Performed By: #### 2 465890 #### [facility] [address] [place] [address] Globulin (S) [Mass/Vol] 2.6 g/dL Normal 1.4-4.0 [facility] Comment on above: Performed By: #### 2 922343 #### [facility] [address] [place] [address] Glucose [Mass/Vol] 291 mg/dL High 55-199 [facility] Comment on above: Performed By: #### 2 206620 #### [facility] [address] [place] [address] Potassium [Moles/Vol] 3.7 mmol/L Normal 3.5-5.[address] [facility] Comment on above: Performed By: #### 2 926372 #### [facility] [address] [place] [address] Protein [Mass/Vol] 6.9 g/dL Normal 6.0-7.8 [facility] Comment on above: Performed By: #### 2 908076 #### [facility] [address] [place] [address] Sodium [Moles/Vol] 139 mmol/L Normal 135-145 [facility] Comment on above: Performed By: #### 2 411517 #### [facility] [address] [place] [address] Urea nitrogen [Mass/Vol] 12 mg/dL Normal 5-21 [facility] Comment on above: Performed By: #### 2 516287 #### [facility] [address] [place] [address] Urea nitrogen/Creatinine [Mass ratio] 9 No Units Low 10-20 [facility] Comment on above: Performed By: #### 2 155996 #### [facility] [address] [place] [address] Family Medicine Office/Clini c Noteon 07-09-2024 Family [...] Concerns: States he got a letter from [facility] stating it is time for next one. 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 He also mentions self-catherization due to a weak bladder, with consistent urological follow-up. Regarding health maintenance, he receives regular monitoring including PSA levels checked by his urologist, and confirmation is sought for a recent colon cancer screening test update. - PSA levels previously assessed by urology. - Referral for colon cancer screening update via [employer]. - Ongoing monitoring of blood glucose levels [...] Ratio 5 (more content not included)... Normal [facility] Comment on above: Result Comment: Elec tronically Signed By: Ruiz REYNOLDS, Nancy Johnson\Date and Time Signed: 07/09/24 08:07 EST HEMATOLOGYOrdered [...] Normal 4.0 - 11.0 E9/L Remisol Heme [id number] 07-09-2024 HbA1c (Bld) [Mass fraction] 8.0 % High <=5.9 [facility] Comment on above: Performed By: #### 7 [id number] #### [facility] [address] [place] [address] Lipid Panelon 07-09-2024 Cholesterol [Mass/Vol] 112 mg/dL Low 120-200 [facility] Comment on above: Performed By: #### 2 791829 #### [facility] [address] [place] [address] Cholesterol in HDL [Mass/Vol] 41 mg/dL Invalid Interpretation Code [facility] Comment on above: Result Comment: '>= 60 LOW RISK' '<= 40 HIGH RISK' Performed By: #### 2 947716 #### [facility] [address] [place] [address] Cholesterol in LDL [Mass/Vol] 59 mg/dL Normal <=129 [facility] Comment on above: Performed By: #### 2 403270 #### [facility] [address] [place] [address] Cholesterol in VLDL [Mass/Vol] 20 mg/dL Normal 7-40 [facility] Comment on above: Performed By: #### 2 381479 #### [facility] [address] [place] [address] Triglyceride [Mass/Vol] 100 mg/dL Normal <=149 [facility] Comment on above: Performed By: #### 2 787239 #### [facility] [address] [place] [address] Pre-Visit Planningon 025 Pre-Visit Planning Pre-Visit Planning From: Valarie Solis To: Ruiz REYNOLDS, Nancy Thompson; Sent: 07/06/2024 11:32:39 EST Subject: Pre-Visit Planning Due Date/Time: 07/06/2024 11:32:00 EST Caller Name: ERIC ALICJA Bharathi; Caller Number: Sana , Nicole Fl Dr. Grace. During a pre-visit planning chart [...] feel free to contact me at extension [phone]. Thank you! Valarie Solis LPN Clinical Game Engineer [place] [address] Extension: [phone] [email or web address] From: Nancy Grace MD To: Valarie Solis; Sent: 07/09/2024 09:09:48 EST Subject: RE: Pre-Visit Planning Caller Name: ALICJA REYES; Caller Number: H , M -Type 2 diabetes mellitus with peripheral neuropathy, Yes he has it and we discussed it today at his visit. [facility] Pre-Visit Planning Pre-Visit Planning From: Irma Valarie Redd To: Nancy Grace MD; Sent: 07/06/2024 11:03:26 EST Subject: Pre-Visit Planning Due Date/Time: 07/06/2024 11:03:00 EST Caller Name: ALICJA REYES; Caller Number: H , M Fl Dr. Grace. During a pre-visit planning chart [...] you! Valarie Solis LPN Clinical Documentation Improvement [place] [phone] TEAMS or [email or web address] From: Ruiz REYNOLDS, Nancy Thompson To: Valarie Solis; Sent: 07/09/2024 07:49:46 EST Subject: RE: Pre-Visit Planning Caller Name: ALICJA REYES; Caller Number: Sana , Nicole Added Morbid Obesity. Normal [facility] U Microalbon 07-09-2024 Albumin DL <= 20 mg/L (U) [Mass/Vol] 10.5 mg/dL High 0.0-1.9 [facility] Comment on above: Performed By: #### 1 [id number] #### [facility] [address] [place] [address] eGFRon 07-09-2024 eGFR 59 mL/min/1.73 m2 Normal >=59 [facility] Comment on above: Performed By: #### 1 [id number] #### [facility] [address] [place] [address] Provider Letteron 07-02-2024 Provider Letter Provider Letter July 02, 2024 ALICJA REYES [address] [place] [id number] : 1955 Dear Alicja , We have [...] attention to this matter. Sincerely, [facility] [address] [address] Normal [facility] EMG 2 Extremitieson 05-22-20 24 [facility] A generalized proces s such as a polyneuropathy which is axonal loss in type and moderate to severe in degree electrically Carpal tunnel syndrome bilaterally, moderate right and mild left, may be overestimated given polyneuropathy Cervical radiculopathy can not be excluded [facility] [place] 11-12 Nerveson 4 [facility] A generalized proces s such as a polyneuropathy which is axonal loss in type and moderate to severe in degree electrically Carpal tunnel syndrome bilaterally, moderate right and mild left, may be overestimated given polyneuropathy Cervical radiculopathy can not be excluded [facility] Ambulatory Visit Summaryon 1 07-19-2023 Ambulatory Visit Summary Ambulatory Visit Summary ALICJA REYES :1955 Visit Date:05/18/2024 Ambulatory Visit Instructions Your Diagnosis Former smoker BMI 36.0-36.9,adult Exogenous obesity Your Care Team Attending Physician - MARINO KEARNS CNP Primary Care Physician - Nancy Grace MD This Is Your Medications List [...] Appointments Tuesday 8:00 AM EST With: Where: [facility] [address] [address]- Tuesday 8:15 AM EST With: EMMY REYNOLDS, Bryant Vogel Where: [facility] [address] [place] [address]- Medications What How Much When Instructions Unchanged [...] you for choosing us for your care. [facility] Family Medicine Office/Clini c Noteon 05-18-2024 [...] bedtime), # 30 cap(s), Refills(s) 0, Pharmacy: [facility]/pharmacy #[id number], 175.3, cm, 05/18/24 7:58:00 EST, Height/Length Dosing, 112.1, kg, 05/18/24 7:58:00 EST, Weight Dosing EMG Right Lower Extremity (RLE) [facility] External Ambulatory Referral 2. Former smoker (Z87.891: [...] Daily, # 90 cap(s), Refills(s) 0, Pharmacy: [facility]/pharmacy #[id number], 175.3, cm, 05/18/24 7:58:00 EST, Height/Length [...] Daily, # 90 cap(s), Refills(s) 0, [id number] 175.3, cm, 05/18/24 7:58:00 EST, Height/Length [...] No qualifying data available Patient Education Paresthesia, [id number] Problem List/Past Medical History Ongoing Alcohol abuse [...] mg, Oral, (more content not included)... Normal [facility] Comment on above: Result Comment: Elec tronically Signed By: MARINO KEARNS CNP\.br\Date and Time Signed: 05/18/24 08:48 EST Magnesiumon 02-28-2024 Magnesium [Mass/Vol] 0.5 mg/dL Abnormal 1.3-2.4 [facility] Comment on above: Result Comment: Crit ical Result S_M.5 Called to and read back by: NOBLE OLIVAS at: 02/28/2024 15:00:56 by:[email or web address] Critical Result Verified by Repeat Analysis Performed By: #### 2 [id number] #### [facility] [address] [place] [address] CHEMISTRYOrdered By: SYSTEM SYSTEM on 02-22-2024 Albumin [...] 02-22-2024 Albumin [Mass/Vol] 4.1 g/dL Normal 3.3-5.0 [facility] Comment on above: Performed By: #### 1 [id number] #### [facility] [address] [place] [address] Anion gap [Moles/Vol] 15 mmol/L Normal 6-[address] [facility] Comment on above: Performed By: #### 1 [id number] #### [facility] [address] [place] [address] Calcium [Mass/Vol] 8.4 mg/dL Low 8.9-11.1 [facility] Comment on above: Performed By: #### 1 [id number] #### [facility] [address] [place] [address] Chloride [Moles/Vol] 101 mmol/L Normal 101-111 [facility] Comment on above: Performed By: #### 1 7271526 #### [facility] [address] [place] [address] CO2 [Moles/Vol] 26 mmol/L Normal 21-31 [facility] Comment on above: Performed By: #### 1 [id number] #### [facility] [address] [place] [address] Creatinine [Mass/Vol] 1.3 mg/dL Normal 0.5-1.[address] [facility] Comment on above: Performed By: #### 1 [id number] #### [facility] [address] [place] [address] Glucose [Mass/Vol] 274 mg/dL High 55-199 [facility] Comment on above: Performed By: #### 1 [id number] #### [facility] [address] [place] [address] Phosphate [Mass/Vol] 2.4 mg/dL Normal 1.9-4.6 [facility] Comment on above: Performed By: #### 1 1159770 #### [facility] [address] [place] [address] Potassium [Moles/Vol] 4.1 mmol/L Normal 3.5-5.[address] [facility] Comment on above: Performed By: #### 1 7584862 #### [facility] [address] [place] [address] Sodium [Moles/Vol] 138 mmol/L Normal 135-145 [facility] Comment on above: Performed By: #### 1 [id number] #### [facility] [address] [place] [address] Urea nitrogen [Mass/Vol] 14 mg/dL Normal 5-21 [facility] Comment on above: Performed By: #### 1 [id number] #### [facility] [address] [place] [address] Urea nitrogen/Creatinine [Mass ratio] 11 No Units Normal 10-20 [facility] Comment on above: Performed By: #### 1 [id number] #### [facility] [address] [place] [address] eGFRon 02-22-2024 eGFR 59 mL/min/1.73 m2 Normal >=59 [facility] Comment on above: Order Comment: Order added by Discern Expert. Performed By: #### 1 [id number] #### [facility] [address] [place] [address] CHEMISTRYOrdered By: SYSTEM SYSTEM on 01-30-2024 Magnesium [Mass/Vol] 0.5 mg/dL Invalid Interpretation Code 1.3 - 2.4 mg/dL [facility] Chem S Comment on above: Result Comment: Crit ical Result Verified by Repeat Analysis called to Marcin Grace by [email or web address] at 01/30/2024 19:19:23 EDT Results Verified By Repeat Analysis Magnesiumon 01-30-2024 Magnesium [Mass/Vol] 0.5 mg/dL Abnormal 1.3-2.4 [facility] Comment on above: Result Comment: Crit ical Result Verified by Repeat Analysis called to Marcin Grace by [email or web address] at 01/30/2024 19:19:23 EDT Results Verified By Repeat Analysis Performed By: #### 2 [id number] #### [facility] [address] [place] [address] Magnesium [Mass/Vol] 0.5 mg/dL Abnormal 1.3-2.4 [facility] Comment on above: Result Comment: Crit ical Result Verified by Repeat Analysis Performed By: #### 2 [id number] #### [facility] [address] [place] [address] [facility] 01-18-20 [facility] Case Information Case Priority: None Programs: -- Referral Source: Electrical & Instrumentation Supervisor Referral Reason: Care coordination Case Type: Transition Care Management Risk Score: -- Case Status: Enrolled (January 03, 2024) Date Assigned: January 02, 2024 Assigned By: Alicja Castellon Date Enrolled: January 03, 2024 Assigned Primary Personnel: Alicja Castellon Assigned Secondary Personnel: -- Case Physician: Nancy Grace MD Ongoing Alcohol abuse BPH without [...] 1 Outcome: Left message-voicemail Contact Type: Complex direct care workerpublic affairs manager Name: Alicja Castellon Notes: TCM#2- message left for return call. Created By: Alicja Castellon Date: January 03, 2024 Method: Phone call Type: Outbound Duration (min): 12 Outcome: Case discussion Contact Type: conference service coordinator Contact Name: Alicja Castellon Notes: TCM#1- see tcm note. Created By: Alicja Castellon Date: January 02, 2024 Method: Phone call Type: Outbound Duration (min): 1 Outcome: Left message-voicemail Contact Type: conference service coordinator Contact Name: Alicja Castellon Notes: TCM#1- left vm for return call. Created By: Alicja Castellon [facility] Ambulatory Visit Summaryon 0 01-13-2024 Ambulatory Visit Summary Ambulatory Visit Summary ALICJA REYES :1955 Visit Date:01/13/2024 Ambulatory Visit Instructions Your Diagnosis HTN (hypertension) Your Care Team Attending Physician - Javier Goins MD Primary Care Physician - Nancy Grace MD Referring Physician - NONE, XXXX This Is [...] Appointments Tuesday 8:00 AM EST With: Where: [facility] [address] [address]- Tuesday 8:15 AM EST With: EMMY REYNOLDS, Bryant Vogel Where: [facility] [place] [address] [place] [address]- Medications What How Much When Instructions Unchanged [...] BS twice daily- will bring equipment to [facility] f/ u to update brand Unchanged multivitamin [...] for choosing us for your care. Normal [facility] Heart and Vascular Office/Cl in Noteon 01-13-2024 Heart and Vascular Office/Clinic Note [...] See Instructions (more content not included)... Normal [facility] Comment on above: Result Comment: Elec [...] methods and specificity. Values obtained with different claim processor's assays cannot be used interchangeably. The methodology used to obtain this result was chemiluminescence using [employer]'s Access Hybritech PSA reagent and [employer] free PSA reagent. Free PSA/Total PSA [Mass fraction] 16.7 % Low >=25.0% Remisol Chem Magnesium [Mass/Vol] 0.9 mg/dL Invalid Interpretation Code 1.3 - 2.4 mg/dL Remisol Chem Comment on above: Result Comment: Crit ical Result Verified by Repeat Analysis Critical Result S_M.9 Called to and read back by: DR KATZ at: 01/11/2024 19:10:59 by:GALO Prostate specific Ag [Mass/Vol] 1.8 ng/mL Normal 0.1 - 3.5 ng/mL [facility] Comment on above: Interpretive Data: T he concentration of PSA determined by different manufacturers can vary due to differences in assay methods and reagent specificity. Values obtained from different assay methods cannot be used interchangeably. The methodology used for this result was chemiluminescence using [employer]'s Access Hybritech PSA reagent. Magnesiumon 01-11-2024 Magnesium [Mass/Vol] 0.9 mg/dL Abnormal 1.3-2.4 [facility] Comment on above: Result Comment: Crit ical Result Verified by Repeat Analysis Critical Result S_M.9 Called to and read back by: DR KATZ at: 01/11/2024 19:10:59 by:GALO Performed By: #### 2 [id number] #### [facility] [address] [place] [address] Ambulatory Visit Summaryon 0 01-10-2024 Ambulatory Visit Summary Ambulatory Visit Summary ALICJA REYES :1955 Visit Date:01/10/2024 Ambulatory Visit Instructions Your Diagnosis Incomplete bladder emptying Hypotonic neurogenic bladder BPH without urinary obstruction Elevated PSA PIN (prostatic intraepithelial neoplasia) Your Care Team Attending Physician - Bryant TAO MD Primary Care Physician - Nancy Grace MD This Is Your Medications List [...] Appointments Tuesday 8:00 AM EDT With: Where: [address] [address]- Tuesday 9:00 AM EDT With: Buster REYNOLDS, Javier Garvin Where: [facility] Tuesday 8:00 AM EST With: Where: [address] [address]- Tuesday 8:15 AM EST With: Bryant TAO MD Where: [facility] [address] [place] [address]- You Need to Schedule the Following Appointments Follow Up with Bryant TAO MD, ALHAJI When: Comments: 6 mos Where: [address] [place], [place] [address] [address] [place] [address]- Medications What How Much When Instructions Unchanged [...] BS twice daily- will bring equipment to [facility] f/ u to update brand Unchanged multivitamin [...] for choosing us for your care. Normal [facility] Urology Office/Clinic Noteon 01-10-2024 Urology Office/Clinic Note [...] (R33.9: Retention of urine, unspecified) 06/04/23 - [facility] ER due to chills and dizziness [...] urinary tract symptoms) MRI of prostate 07/21/23 [facility] - Prostate volume 26 cc. Grossly distended [...] 04/04/23 - 6.1 MRI of prostate 07/21/23 [facility] - A focal area involving the anterior [...] L p (more content not included)... Normal [facility] Comment on above: Result Comment: Elec [...] use Your Care Team Attending Physician - Nancy Grace MD Primary Care Physician - Nancy Grace MD This Is Your Medications List [facility] acetaminophen (acetaminophen 325 mg Tab) [...] REYNOLDS, Bryant Vogel Where: [facility] [address] [place] [address]- Tuesday 8:00 AM EDT With: Where: [address] [address]- Tuesday 9:00 AM EDT With: Buster REYNOLDS, Javier Garvin Where: [facility] Tuesday 8:00 AM EST With: Where: [address] [address]- Medications What How Much When Why Instructions [...] BS twice daily- will bring equipment to [facility] f/ u to update brand Unchanged multivitamin [...] choosing us for your care. Normal [facility] Family Medicine Office/Clini c Noteon 01-05-2024 Family Medicine Office/Clinic Note Family Medicine Office/Clinic Note HPI Staff Alicja is a 68 year old male presenting for hospital follow up TCM: Hospital: [facility] Admission date: 12/29/23 Discharge date: 12/30/23 Symptoms the patient presented with: sent by pcp for hypomagnesia Current concerns: doesn't care for Dacia Bañuelos the [employer] DEVELOPER she took care of him in the [...] 130-139 mm (more content not included)... Normal [facility] Comment on above: Result Comment: Elec tronically Signed By: Ruiz REYNOLDS, Nancy Cordoba.br\Date and Time Signed: 01/05/24 08:26 EDT Population Health 01-03-20 [facility] Case Information Case Priority: None Programs: -- Referral Source: Electrical & Instrumentation Supervisor Referral Reason: Care coordination Case Type: Transition Care Management Risk Score: -- Case Status: Enrolled (January 03, 2024) Date Assigned: January 02, 2024 Assigned By: Alicja Castellon Date Enrolled: January 03, 2024 Assigned Primary Personnel: Cande, Alicja R Assigned Secondary Personnel: -- Case Physician: Nancy Grace MD Problems Ongoing Alcohol abuse BPH [...] this am. (more content not included)... Normal [facility] PTH Intacton 01-01-2024 Parathyrin.intact [Mass/Vol] 23 pg/mL Invalid Interpretation Code 15-65 [facility] Comment on above: Result Comment: Perf ormed at: [facility] [address] [id number] PhD Malik Fernando Performed By: #### 1 [id number] #### [facility] [address] [place] [address] Urineon 12-31-2023 Bacteria identified Cx Nom (U) Microbiology PROCEDURE: Urine Culture [R1] SOURCE: U CleanCatch BODY SITE: COLLECTED DATE/TIME: 12/29/2023 15:42 EDT RECEIVED DATE/TIME: 12/29/2023 17:12 EDT START DATE/TIME: 12/29/2023 17:12 EDT FREE TEXT SOURCE: DEDA MILLERBOGDAN, Dacia BAÑUELOS [facility]ALTH[facility], Dacia FINAL REPORTS Final Report [] Verified [...] Locations R1: [facility] at[facility], [address] [place] [address], [address] , , Normal [facility] Comment on above: Performed By: #### 2 [id number] #### [facility] [address] [place] [address] General Message Officeon Joota Message Office --- --- --- --- --- --- --- --- --- From: Nancy Ferreira To: ALICJA REYES Sent: 12/31/23 02:30:27 AM EDT Subject: Discharge Summary Ready to View A summary regarding your recent visit is available in the Documents section of your health record. Normal [facility] Miscellaneous-LCon 12-30 Lab Miscellaneous COMMENT Invalid Interpretation Code [facility] Comment on above: Order Comment: Kelsey m sample, not 24hr collection Urine Result Comment: Test Ordered: [id number] Magnesium, U Magnesium, U 5.1 mg/dL CB Reference Range: Not Estab. Performed at: CB [facility] [address] [id number] PhD Malik Fernando Performed By: #### 1 [id number] #### [facility] [address] [place] [address] CHEMISTRYOrdered By: Lab ROP User on 12-30-2023 Glucose [Mass/Vol] 168 mg/dL High 55 - 99 mg/dL FTM C POC Subsection Comment on above: Result Comment: Kingston gloria RN/MD POC Device SN [id number] 1 Invalid Interpretation Code FT POC Subsection POC User ID [id number] 1 Invalid Interpretation Code FT POC Subsection POC Username NAVEEN AMANDA Invalid Interpretation Code FT POC Subsection Glucose [Mass/Vol] 150 mg/dL High 55 - 99 mg/dL FTM C POC Subsection Comment on above: Result Comment: Kingsotn faizan RN/ POC Device SN [id number] 1 Invalid Interpretation Code FT POC Subsection POC User ID [id number] 1 Invalid Interpretation Code FT POC Subsection POC Username NAVEEN AMANDA Invalid Interpretation Code [facility] POC Subsection CHEMISTRYOrdered By: SYSTEM SYSTEM on [...] 12-05 Glucose [Mass/Vol] 168 mg/dL High 55-99 [facility] Comment on above: Result Comment: Kingston gloria RN/ Performed By: #### 2 [id number] #### [facility] [address] [place] [address] HEMATOLOGYOrdered By: SYSTEM SYSTEM on 12-30-2023 Basophils/100 [...] 12-30-2023 Inpatient Clinical Summary Inpatient Clinical Summary [address] [address] Clinical Summary Person Information: Name: ALICJA REYES Age: 68 Years : 1955 Sex: Male PCP: Nancy Grace MD Marital Status: Race: White Ethnicity: Non- or Language: Azerbaijani Visit Id: Visit Reason: Abnormal diagnostic test; SENT BY DR GRACE MAGNESIUM IS LOW Speciality: Acuity: Enc Type: Inpatient Med Service: Medical Arrival: 12/29/2023 13:33:35 Discharge: Dispo Type: Admitted as IP to this Hosp Address: [address] [place] [address] Provider Notes: Diagnosis: 1:Hypomagnesemia; 2:UTI (urinary tract [...] Follow up: With: Address: [facility] [place] [address] Business (1) Comments: Call for followup appointment in [place] office With: Address: When: Nancy Grace [address] [place] [address] Business (2) 01/05/2024 7:45 AM Type Location Start [facility] Follow Up w/TCM [facility] 01/05/2024 7:45 AM 01/05/2024 8:05 AM Confirmed URO Office Visit [facility] [place] 01/10/2024 8:15 AM 01/10/2024 8:30 AM Confirmed Cardiology Follow Up (FT) [facility] 01/13/2024 9:00 AM 01/13/2024 9:15 AM Confirmed Medicare Wellness Subsequent [facility] 07/09/2024 8:00 AM 07/09/2024 9:00 AM Confirmed Patient Education Information: How to Take Your Blood Pressure, Iwuz-nh-Voxz; Form - Blood Pressure Record Sheet; Urinary Tract Infection, Adult, Butc-na-Aalg; Hypomagnesemia cyanocobalamin, levofloxacin, lisinopril, magnesium oxide 400 mg Tab Normal [facility] Inpatient Clinical Summary Inpatient Clinical Summary [address] [address] Clinical Summary Person Information: Name: ALICJA REYES Age: 68 Years : 1955 Sex: Male PCP: Nancy Grace MD Marital Status: Race: White Ethnicity: Non- or Language: Azerbaijani Visit Id: Visit Reason: Abnormal diagnostic test; SENT BY DR GRACE MAGNESIUM IS LOW Speciality: Acuity: Enc Type: Inpatient Med Service: Medical Arrival: 12/29/2023 13:33:35 Discharge: Dispo Type: Admitted as IP to this Hosp Address: [address] [place] [id number] Provider Notes: Diagnosis: 1:Hypomagnesemia; 2:UTI (urinary tract [...] Mouth every day. Refills: 6. Misc Prescription ([facility] Prescription) Alcohol prep pads Use to test blood sugars daily Dx E11.9. Refills: 3. Misc Prescription ([facility] Prescription) One Touch Ultra 2 glucose [...] Referring Physician: Follow up: With: Address: When: Nancy Grace [address] [place], [place] [address] [address] [facility] () 01/05/2024 7:45 AM Type Location Start [facility]/05[facility] 7:45 AM 01/05/2024 8:05 AM Confirmed URO Office Visit [facility] ZAIN [address] 01/10/2024 8:15 AM 01/10/2024 8:30 AM Confirmed [facility] 01/13/2024 9:00 AM 01/13/2024 9:15 AM Confirmed Medicare Wellness Subsequent [facility] 07/09/2024 8:00 AM 07/09/2024 9:00 AM Confirmed Patient Education Information: Normal [facility] Inpatient Patient Summaryon 12-30-2023 Inpatient Patient Summary Inpatient Patient Summary ALICJA REYES Bharathi :1955 Visit Date:12/29/2023 Inpatient Discharge Instructions Your [...] Follow-Up Appointments 2023 7:45 AM EDT With: Ruiz REYNOLDS, Nancy Thompson Where: [address] [place] [address]- Tuesday 8:15 AM EDT With: EMMY REYNOLDS, Bryant Vogel Where: [facility] [address] [place] [address]- Tuesday 9:00 AM EDT With: Buster REYNOLDS, Javier Garvin Where: [facility] Tuesday 8:00 AM EST With: Where: [facility] [address] [place] [address]- New Follow Up Appointments after Discharge Follow Up with Nancy Grace When: 01/05/2024 07:45 AM EDT Where: [address] [place] [address]- Business (2) Follow Up with Ramos Euceda When: Comments: Call for followup appointment in [facility] office Where: [place] [address]- Business (1) Medications What How Much When Why Instructions Next Dose New acetaminophen (acetaminophen 325 mg Tab) 2 Tablets By Mouth Every 6 hours as needed for Pain start as new med New cyanocobalamin (cyanocobalamin 1000 mcg Tab) 1 Tablets By Mouth Every day Pickup at [facility]/pharmacy #[id number] 12/31/23 9am New levofloxacin (Levaquin 500 mg Tab) 1 Tablets By Mouth Every 24 hours Duration: 10 Days Pickup at [facility]/pharmacy #6177 start as new med today New lisinopril (lisinopril 40 mg Tab) 1 Tablets By Mouth Every day Pickup at [facility]/pharmacy #6177 12/31/23 9am New multivitamin (Therapeutic Multiple Vitamin Tab) See instructions Oral Daily Printed Prescription 12/31/23 9am Changed magnesium oxide (magnesium oxide 400 mg Tab) 1 Tablets By Mouth 2 times a day Pickup at [facility]/pharmacy #6177 12/30/23 9pm Unchanged amlodipine (amLODIPine 5 [...] mg Ta (more content not included)... Normal [facility] Inpatient Patient Summary Inpatient Patient Summary [address] [address] Patient Discharge Instructions PERSON INFORMATION Name: ALICJA REYES Date of : 1955 Current Date: 12/30/2023 12:30:17 PHYSICIANS Admitting Physician: Artemio Olivares DO Primary Care Physician: Nancy Grace MD PCP Comment: Discharge Diagnosis: 1:Hypomagnesemia; [...] culture Follow up: With: Address: When: [place] [address] [facility] (1) Comments: Call for followup appointment in [facility] office With: Address: When: Nancy Grace [address] [place], [place] [phone] Business (2) 01/05/2024 7:45 AM In the event that this physician does not participate in your insurance network, please consult with your insurance company to find a nearby participating provider. Type Location Start [facility] Follow Up w/TCM [facility] 01/05/2024 7:45 AM 01/05/2024 8:05 AM Confirmed URO Office Visit [facility] [place] 01/10/2024 8:15 AM 01/10/2024 8:30 AM Confirmed Cardiology Follow Up (FT) [facility] 01/13/2024 9:00 AM 01/13/2024 9:15 AM Confirmed Medicare Wellness Subsequent [facility] 07/09/2024 8:00 AM 07/09/2024 9:00 AM Confirmed Comment: IERIC ROBIN D, have received the attached patient education materials/instruction s and have verbalized understanding: Patient Signature Date Clinican/Nurse Signature Date HERE ARE THE MEDICATION CHANGES THAT OCCURRED DURING YOUR HOSPITAL STAY New Medications [id number], [address], [place] [id number], [phone] cyanocobalamin (cyanocobalamin 1000 mcg Tab) 1 Tablets [...] Medications to Continue Taking That Have Changed [facility]/pharmacy #[id number], [address], [place] [id number], [phone] START: magnesium oxide (magnesium oxide 400 mg [...] Last Dose: (more content not included)... Normal [facility] Inpatient Patient Summary Inpatient Patient Summary [place] [address] Patient Discharge Instructions PERSON INFORMATION Name: ALICJA REYES Date of : 1955 Current Date: 12/30/2023 09:11:50 PHYSICIANS Admitting Physician: Artemio Olivares DO Primary Care Physician: Nancy Grace MD PCP Comment: Discharge Diagnosis: 1:Hypomagnesemia; [...] test results: Follow up: With: Address: When: Nancy Grace [address] [place] [address] Business (2) 01/05/2024 7:45 AM In the event that this physician does not participate in your insurance network, please consult with your insurance company to find a nearby participating provider. Type Location Start [facility] Follow Up w/TCM [facility] Nam 01/05/2024 7:45 AM 01/05/2024 8:05 AM Confirmed URO Office Visit [facility] [place] [address] 01/10/2024 8:15 AM 01/10/2024 8:30 AM Confirmed Cardiology Follow Up (FT) [facility] 01/13/2024 9:00 AM 01/13/2024 9:15 AM Confirmed Medicare Wellness Subsequent [facility] [place] 07/09/2024 8:00 AM 07/09/2024 9:00 AM Confirmed [...] EVERY DAY. (more content not included)... Normal [facility] Miscellaneous-LCon 12-29 Test Code 002811 Invalid Interpretation Code [facility] Comment on above: Order Comment: Kelsey redd sample, not 24hr collection Urine Result Comment: Юлия ected test code Performed By: #### 1 [id number] #### [facility] [address] [place] [address] Reference Laboratory Testing Ordered By: Dacia BAÑUELOS on 12-30-2023 Test Code 128645 1 Invalid Interpretation Code [facility] Comment on above: Result Comment: Юлия ected test code Test Name urine mag Invalid Interpretation Code [facility] TSH With T4fr Reflexon 12-29 TSH Qn 1.54 m[IU]/L Normal 0.34-5.60 [facility] Comment on above: Performed By: #### 1 [id number] #### [facility] [address] [place] [address] CHEMISTRYOrdered By: Lab ROP User on 12-29-2023 Glucose [Mass/Vol] 170 mg/dL High 55 - 99 mg/dL FTM C POC Subsection POC Device SN [id number] 1 Invalid Interpretation Code [facility] POC Subsection POC User ID [id number] 1 Invalid Interpretation Code [facility] POC Subsection POC Username FAHEEM LUNA Invalid Interpretation Code [facility] POC Subsection CHEMISTRYOrdered By: SYSTEM SYSTEM on [...] Test Name urine mag Invalid Interpretation Code [facility] Comment on above: Order Comment: Kelsey redd sample, not 24hr collection Urine Performed By: #### 1 [id number] #### [facility] [address] [place] [address] Laboratory - Microbiology an d Antimicrobial susceptibilityOrdered By: Amber Jeffries on 12-29-2023 Bacteria identified Cx Nom (U) 75,000 cfu/ml Streptococcus species [facility] URINALYSISOrdered By: SYSTEM SYSTEM on 12-29-2023 Bacteria Auto Ql (U) 1+ /HPF Invalid Interpretation Code Trace/HPF [facility] UA Auto SS Bilirubin Ql (U) Negative Normal Negativemg/dL [facility] UA Auto SS Clarity (U) Clear (12/29/23 3:42 PM) Normal Clear [facility] UA Auto SS Color (U) Light-Yellow 3 (12/29/23 3:42 PM) Normal Yellow [facility] UA Auto SS Comment on above: Interpretive Data: M icroscopic readings are only performed on those samples that meet specific criteria set forth by [facility]. Epithelial cells.squamous Auto (Urine sed) [#/Area] 0-2 graded/HPF Invalid Interpretation Code [facility] UA Auto SS Glucose Ql (U) Trace mg/dL Invalid Interpretation Code Negativemg/dL [facility] UA Auto SS Hemoglobin Auto test strip [...] Desc Clean Catch (12/29/23 3:42 PM) Normal [facility] UA Auto SS Ambulatory Visit Summaryon 0 12-27-2023 Ambulatory Visit Summary Ambulatory Visit Summary ALICJA REYES :1955 Visit Date:12/27/2023 Ambulatory Visit Instructions Your Diagnosis Hypomagnesemia Hypokalemia Gastroesophageal reflux disease without esophagitis Dizziness BMI 37.0-37.9, adult Class 1 obesity due to excess calories in adult Smokeless tobacco use Former smoker Your Care Team Attending Physician - Nancy Grace MD Primary Care Physician - Nancy Grace MD This Is Your Medications List [...] REYNOLDS, Bryant Vogel Where: [facility] Invalid Interpretation Code [address] [id number]- \.br\ Someone Will Contact You Regarding These Appointments\.br\ [facility] External Ambulatory Referral, Nephrology, 12/27/23 8:10:00 EDT, Hypomagnesemia [facility] Ambulatory Visit Summary Ambulatory Visit Summary ALICJA REYES :1955 Visit Date:12/27/2023 Ambulatory Visit Instructions Your Diagnosis Hypomagnesemia Hypokalemia Gastroesophageal reflux disease without esophagitis Dizziness BMI 37.0-37.9, adult Class 1 obesity due to excess calories in adult Smokeless tobacco use Former smoker Your Care Team Attending Physician - Nancy Grace MD Primary Care Physician - Nancy Grace MD This Is Your Medications List [...] REYNOLDS, Bryant Vogel Where: [facility] Invalid Interpretation Code [address] [place] [address]- \.br\ Someone Will Contact You Regarding These Appointments\.br\ [facility] External Ambulatory Referral, Nephrology, 12/27/23 8:10:00 EDT, Hypomagnesemia [facility] BMPon 12-27-2023 Anion gap [Moles/Vol] 14 mmol/L Normal 6-[address] [facility] Comment on above: Performed By: #### 2 [id number] #### [facility] [address] [place] [address] Calcium [Mass/Vol] 8.5 mg/dL Low 8.9-11.1 [facility] Comment on above: Performed By: #### 2 [id number] #### [facility] [address] [place] [address] Chloride [Moles/Vol] 104 mmol/L Normal 101-111 [facility] Comment on above: Performed By: #### 2 [id number] #### [facility] [address] [place] [address] CO2 [Moles/Vol] 24 mmol/L Normal 21-31 [facility] Comment on above: Performed By: #### 2 [id number] #### [facility] [address] [place] [address] Creatinine [Mass/Vol] 1.5 mg/dL High 0.5-1.[address] [facility] Comment on above: Performed By: #### 2 [id number] #### [facility] [address] [place] [address] Glucose [Mass/Vol] 158 mg/dL Normal 55-199 [facility] Comment on above: Performed By: #### 2 [id number] #### [facility] [address] [place] [address] Potassium [Moles/Vol] 4.7 mmol/L Normal 3.5-5.[address] [facility] Comment on above: Performed By: #### 2 [id number] #### [facility] [address] [place] [address] Sodium [Moles/Vol] 137 mmol/L Normal 135-145 [facility] Comment on above: Performed By: #### 2 [id number] #### [facility] [address] [place] [address] Urea nitrogen [Mass/Vol] 19 mg/dL Normal 5-21 [facility] Comment on above: Performed By: #### 2 [id number] #### [facility] [address] [place] [address] Urea nitrogen/Creatinine [Mass ratio] 13 No Units Normal 10-20 [facility] Comment on above: Performed By: #### 2 [id number] #### [facility] [address] [place] [address] CHEMISTRYOrdered By: SYSTEM SYSTEM on 12-27-2023 Anion [...] back by: DOCTOR DIEGO at: 12/27/2023 20:26:51 by:[email or web address] Potassium [Moles/Vol] 4.7 mmol/L Normal 3.5 - [...] for ER follow up ER followup: Hospital: [facility] [place] Visit date: 12/23/23 Symptoms the patient dizziness, [...] History Ar (more content not included)... Normal [facility] Comment on above: Result Comment: Elec tronically Signed By: Ruiz REYNOLDS, Nancy Cordoba.oliver\Date and Time Signed: 12/27/23 08:08 EDT Magnesiumon 12-27-2023 Magnesium [Mass/Vol] 0.9 mg/dL Abnormal 1.3-2.4 [facility] Comment on above: Result Comment: Crit ical Result Verified by Repeat Analysis Critical Result S_M.9 Called to and read back by: DOCTOR DIEGO at: 12/27/2023 20:26:51 by:[email or web address] Performed By: #### 2 [id number] #### [facility] [address] [place] [address] eGFRon 12-27-2023 eGFR 50 mL/min/1.73 m2 Low >=59 [facility] Comment on above: Order Comment: Order added by Discern Expert. Performed By: #### 1 [id number] #### [facility] [address] [place] [address] C Urineon 12-24-2023 Bacteria identified Cx Nom [...] Locations R1: This test was performed at: [facility], [address] [place] [address], [address] , [place], Normal [facility] Comment on above: Performed By: #### 2 [id number] #### [facility] [address] [place] [address] CMPon 12-23-2023 Albumin [Mass/Vol] 4.4 g/dL Normal 3.3-5.0 [facility] Comment on above: Performed By: #### 2 [id number] #### [facility] [address] [place] [address] Albumin/Globulin (S) [Mass conc ratio] 1.5 Normal 1.1-2.2 [facility] Comment on above: Performed By: #### 2 [id number] #### [facility] [address] [place] [address] ALP [Catalytic activity/Vol] 62 Int._Unit/L Normal 21-98 [facility] Comment on above: Performed By: #### 2 [id number] #### [facility] [address] [place] [address] ALT No additional P-5'-P [Catalytic activity/Vol] 22 Int._Unit/L Normal 6-46 [facility] Comment on above: Performed By: #### 2 [id number] #### [facility] [address] [place] [address] AST [Catalytic activity/Vol] 21 Int._Unit/L Normal 5-43 [facility] Comment on above: Performed By: #### 2 [id number] #### [facility] [address] [place] [address] Bilirubin [Mass/Vol] 0.9 mg/dL Normal 0.0-1.1 [facility] Comment on above: Performed By: #### 2 [id number] #### [facility] [address] [place] [address] Globulin (S) [Mass/Vol] 2.9 g/dL Normal 1.4-4.0 [facility] Comment on above: Performed By: #### 2 [id number] #### [facility] [address] [place] [address] Protein [Mass/Vol] 7.3 g/dL Normal 6.0-7.8 [facility] Comment on above: Performed By: #### 2 [id number] #### [facility] [address] [place] [address] Magnesiumon 12-23-2023 Magnesium [Mass/Vol] mg/dL Abnormal 1.3-2.4 [facility] Comment on above: Result Comment: Crit ical Result S_MG:<0.5 Called to and read back by: ANGELLA GUERRERO at: 12/23/2023 08:18:07 by:MELODIE Critical Result Verified by Repeat Analysis Performed By: #### 2 [id number] #### [facility] [address] [place] [address] CBC w/ Auto Diffon 4 Basophils/100 WBC (Bld) 0.7 % Normal 0.0-2.0 [facility] Comment on above: Performed By: #### 2 253290 #### [facility] [address] [place] [address] Basophils/Leukocytes Auto (Bld) [Pure # fraction] 0.1 E9/L Normal 0.0-0.2 [facility] Comment on above: Performed By: #### 2 292586 #### [facility] [address] [place] [address] Eosinophils (Bld) [#/Vol] 0.1 E9/L Normal 0.0-0.5 [facility] Comment on above: Performed By: #### 2 967346 #### [facility] [address] [place] [address] Eosinophils/100 WBC (Bld) 1.5 % Normal 0.0-8.0 [facility] Comment on above: Performed By: #### 2 724606 #### [facility] [address] [place] [address] Erythrocyte distribution width (RBC) [Ratio] 13.3 % Normal 10.9-14.2 [facility] Comment on above: Performed By: #### 2 658030 #### [facility] [address] [place] [address] Hematocrit (Bld) [Volume fraction] 38.5 % Normal 37.7-49.0 [facility] Comment on above: Performed By: #### 2 654599 #### [facility] [address] [place] [address] Hemoglobin (Bld) [Mass/Vol] 13.2 g/dL Low 13.5-17.5 [facility] Comment on above: Performed By: #### 2 887428 #### [facility] [address] [place] [address] Lymphocytes (Bld) [#/Vol] 1.4 E9/L Normal 1.0-4.0 [facility] Comment on above: Performed By: #### 2 354056 #### [facility] [address] [place] [address] Lymphocytes/100 WBC (Bld) 18.7 % Normal 14.0-50.0 [facility] Comment on above: Performed By: #### 2 555215 #### [facility] [address] [place] [address] MCH (RBC) [Entitic mass] 33.5 pg Normal 27.0-34.0 [facility] Comment on above: Performed By: #### 2 421007 #### [facility] [address] [place] [address] MCHC (RBC) [Mass/Vol] 34.3 g/dL Normal 31.4-36.[address] [facility] Comment on above: Performed By: #### 2 006345 #### [facility] [address] [place] [address] MCV (RBC) [Entitic vol] 97.5 fL Normal 80.0-100.0 [facility] Comment on above: Performed By: #### 2 050035 #### [facility] [address] [place] [address] Monocytes (Bld) [#/Vol] 0.6 E9/L Normal 0.2-1.0 [facility] Comment on above: Performed By: #### 2 600069 #### [facility] [address] [place] [address] Neutrophils (Bld) [#/Vol] 5.3 E9/L Normal 2.0-7.5 [facility] Comment on above: Performed By: #### 2 188049 #### [facility] [address] [place] [address] Neutrophils/100 WBC (Bld) 70.6 % Normal 36.0-75.0 [facility] Comment on above: Performed By: #### 2 211809 #### [facility] [address] [place] [address] Platelet 246.0 E9/L Normal 150.0-500.0 [facility] Comment on above: Performed By: #### 2 175512 #### [facility] [address] [place] [address] Platelet mean volume (Bld) [Entitic vol] 7.6 fL Normal 6.4-10.8 [facility] Comment on above: Performed By: #### 2 696018 #### [facility] [address] [place] [address] RBC (Bld) [#/Vol] 4.0 E12/L Low 4.3-5.9 [facility] Comment on above: Performed By: #### 2 364429 #### [facility] [address] [place] [address] WBC corrected for nucl RBC Auto (Bld) [#/Vol] 7.4 E9/L Normal 4.0-11.0 [facility] Comment on above: Performed By: #### 2 122523 #### [facility] [address] [place] [address] CHEMISTRYOrdered By: Jaime van on 12-22-2023 Anion [...] Anion gap [Moles/Vol] 19 mmol/L High 6-[address] [facility] Comment on above: Performed By: #### 2 852359 #### [facility] [address] [place] [address] Calcium [Mass/Vol] 8.2 mg/dL Low 8.9-11.1 [facility] Comment on above: Performed By: #### 2 160621 #### [facility] [address] [place] [address] Chloride [Moles/Vol] 100 mmol/L Low 101-111 [facility] Comment on above: Performed By: #### 2 197999 #### [facility] [address] [place] [address] CO2 [Moles/Vol] 23 mmol/L Normal 21-31 [facility] Comment on above: Performed By: #### 2 334955 #### [facility] [address] [place] [address] Creatinine [Mass/Vol] 1.6 mg/dL High 0.5-1.[address] [facility] Comment on above: Performed By: #### 2 871328 #### [facility] [address] [place] [address] Glucose [Mass/Vol] 255 mg/dL High 55-199 [facility] Comment on above: Performed By: #### 2 434302 #### [facility] [address] [place] [address] Potassium [Moles/Vol] 3.8 mmol/L Normal 3.5-5.[address] [facility] Comment on above: Performed By: #### 2 805559 #### [facility] [address] [place] [address] Sodium [Moles/Vol] 138 mmol/L Normal 135-145 [facility] Comment on above: Performed By: #### 2 864481 #### [facility] [address] [place] [address] Urea nitrogen [Mass/Vol] 17 mg/dL Normal 5-21 [facility] Comment on above: Performed By: #### 2 247495 #### [facility] [address] [place] [address] Urea nitrogen/Creatinine [Mass ratio] 11 No Units Normal 10-20 [facility] Comment on above: Performed By: #### 2 502726 #### [facility] [address] [place] [address] Family Medicine Office/Clini c Noteon 12-22-2023 Family [...] Illness 68 year old patient of Dr. Graec, presents for evaluation of dizziness, nausea, & [...] day(s), # 14 tab(s), Refills(s) 0, Pharmacy: [facility], 172, cm, 12/22/23 7:41:00 EDT, Height/Length Dosing, 107.8, kg, 12/22/23 7:41:00 EDT, Weight Dosing Urine Culture 2. Vomiting (R11.10: Vomiting, unspecified) Continue Zofran as needed Diet as tolerated Encourage fluids Ordered: ciprofloxacin, 500 mg = 1 tab(s), Oral, q12hr, X 7 day(s), # 14 tab(s), Refills(s) 0, Pharmacy: [facility], 172, cm, 12/22/23 7:41:00 EDT, Height/Length Dosing, 107.8, kg, 12/22/23 7:41:00 EDT, Weight Dosing CBC w/ Auto Diff Comprehensive Metabolic Panel Lab Specimen Collect [address] Magnesium Level Urnls Dip Stick Auto w/o Microscopy POC 36994 3. Former smoker (Z87.891: Personal history of nicotine dependence) Encouraged to continue as a non-smoker Ordered: Lab Specimen Collect 77652 Urnls Dip Stick Auto w/o Microscopy POC 38335 4. BMI 36.0-36.9,adult (Z68.36: Body mass index [...] at subsequent visits. Ordered: Lab Specimen Collect 02368 Urnls Dip Stick Auto w/o Microscopy POC 07714 Orders: magnesium oxide, 400 mg = 1 tab(s), Oral, Daily, # 60 tab(s), Refills(s) 0, Pharmacy: [facility], 172, cm, 12/22/23 7:41:00 EDT, [...] moderate Murmur (more content not included)... Normal [facility] Comment on above: Result Comment: Elec tronically Signed By: MARINO KEARNS CNP\Date and Time Signed: 12/22/23 10:28 EDT HEMATOLOGYOrdered [...] 12-22-2023 eGFR 46 mL/min/1.73 m2 Low >=59 [facility] Comment on above: Order Comment: Order added by Discern Expert. Performed By: #### 1 [id number] #### [facility] [address] [place] [address] Coding Summary.on 11-29-2023 Coding Summary. BTVCRkht81SUm9wZh+PG h lYWQ+OX1NSCDaQ19pfNDg gA1kE1KUOMiKUcyvIVABD GfMKvBknoSkQP9seZZaEB Ju IC8+ZF6lTIFeMhlyyFXtt 3X8dOY0H14wdj6pVPaecA S9QONnJoWcsgogb4xjmMu 6IDcuNmluOyBt FCTrtO14VPR8lP49Kn13v NBqaDMbo3btrBp2MsBxPZ RlIPN5gMsyOAqww1OjODG eB21qgRUow0A0 CFWrfHhwxRSfVmKyfQU0h Y6hNKpgxrzup4tcubukAl o0az08rKOho9Z8xLO0V5X defP3FRPclQAk HhkruQNPxZ5jvsehs6mue sqwZgVrCTUqQOe0WFv7IM WqbWqgPhAkWG44JLK3HSP pntSdZ4MhTYMk pSxnObM7e9K6Su6ND3PRW ffrT7LKQMXGPJkmrOE+PC 73du60M3SyBklhHmt8YDV mWAR5sZX7pW7k UTJfJOppm4H9aKS1V6Pbe oBppy7vt3ktYJGoSMrmY8 9tgUTmd0L6KFQzdMN3CIR keDdbUxZitR78 Oyc+APEftQycl3RzCblvb 7hsl4dikOz4EpnjCVGllo HjdBsqAQL9j2UvJf1bQQR cpDX0vVV4yX3f DfFqSsZ3GHhwR948EiMpk DZfNwhtA16bZ0RmbVP+PH EtGtw1YYFkoIxfIW9eW1D hZGRpbmctbGVm iScjMV2wGLBgzpreDKTkd E7kRWFnA7v4IqPhFtG5IY mmS3QoZHMzwtpcWn45yH1 pWuZaUyQ0DZdb T6RbhyC7GRRhlBZzPCpbE CJ6I21kp3I0DHGtLIAiNH Y3xYK5pS8ulUpbzwirdNR mdDsgdmVydGlj ZQxmTQnaB750ABNejQywQ kNvZGluZyBEYXRlOiAgMD YvMjUvMjAyNDwvdGQ+PHR eLWE0vWbjYFOl bLKcSYooOm0cvIsqbQyuO A7rXAQurfqwFRFsqM4rKR QcxAAciKnzTD0yHNVfznb sc383LgDbOXK7 WQWgkXYqA4GxeS0kFrYgV LKyDTElP1UsuGZpUSvtN0 77FKvjWfQ2USDdzoZpS4X sLWFsaWduOiB0 j5K9Mc4Py2SuqqgcA6Fph HYvTpDxKpjdEVv6F0WuYq wvdHI+MK55SDZnLW33IBm 4HKM9yGwgRBgx DRPvE8DwnR6yEnEnUGUpA GRkOyc+PHRhYmxlIHdpZH RoPScxMDAlJyBzdHlsZT0 sUt1lJEPaNYLj wXuphACzRjEbw1kwOLCzY QyhTA7hgHvxN4TijPS7ZV Jff7d7Ra77O05lP8WzgWM +JFRiwEX7xWW7 gY1lVqLbApS4KPjbV397J xYzcCHfMpdly0gsy9sbuW x3VwP2KMKpbrZeaCuaBBK 8q2AbHr04V93b IHdpZHRoPSIxNSUiIHZhb Sajpi1jzQ7nEm3+PGNvbC D8oCI0wE5nBzXzShB2IAe qO332OnExqOVh Kvrby5vym4mtmOs0RlJhN OGtanOtsVksFSU1f9BuJz 01D5XfaOzgp9IiSib4fc8 2sIMqt7U4vOU2 M1XeDALpcnyxdZCcvVyaN T3tURWarnxvOONfaZ4hMM BrT2c3QfLePcO0TJejY6Q ytwO9UZYykZIa GVQhdQPVwC7mznzbu1owm xfuDjHuCKFwCQe5OMe7CN LlzMxlJaUnEFF5UfE4SNB 0nGYzwW3zxBjt nlxegK4jCfm+ZPN7fTMjo TLVKM9kLdzebJH+PHRkIH E5kUxyGOgjTZXkeF9rNKB aG6h4SpEuLxD6 UVskS1MnfdD3PRAjoRPsR EZkmFXNmJ5rrvpio9yytj rhMmIdNBTxNLo9PMg9VSN saWduOiBsZWZ0 OfX5LYW7aMWkcP8nmJzwk lknyK9xFwr+QmlydGggRG G1VSl5D4SdMrl7YQZaqHp fWS0kgWCkFYwk Et6ccPjemMiiIV3pIXGet ujjs851UcBic0reHMHteV IwROfdZKQ1Z93lw6L4KIL oZCKcINH5sIO4 eU4baXgeoonaaYUanJsyu gGwbVcfNUhyKOspV281SN YqzUypLdCtOHl3M9ElDzx 5SNMbhJpdJX1o rDSuDZkdMp3dmUvtrSubV X9lGGFwnjcyk122GnHmm4 ghFYPulUXyKZkvCUU9X96 in0Z9MTBuKPTz EYJ3jOA5dM8knWszufuya GVmdDsgdmVydGljYWwtYW prI657EZEgwAjvMkMlvKf 3L7ThLui5HPSt hXxeTZ9ndUUxHKicJu1pc FolsGrbYL9vNVBcneogx6 35SqYuy4dgGSLueCPtDHj iMPI1W77vz0M4 YJOzSAEuUWN4bII8nN3in GlnbjogbGVmdDsgdmVydG fpWShsXSluW967DUOhgXt nPlBhdGllbnQg SUwjJNg9C8WeOebojHV+P X56TFGoYQ22dRKfwFEgx8 uolDn4WxAkIVPcPQF9fJq nNBzzt6NrAATw Y92oxYVmc7I2XALwoDjav ISoRiXkoJC6hO6vLIqupl zfl3pgjbpoAlerz0nbvd1 8xK71G58yFRen ZHRoPSIzMCUiIHZhbGlnb m5vqY3tZr6+VOYwiKU9oY M3dC3vBQKzJhU7KIwjC62 9InRvcCIvPjxj j9sjy2lxmBy9XbR6XQRru cOdmEyqEXK0z3UiUy51F5 9sIHdpZHRoPSIyMCUiIHZ jgPsmed2acB2d Ii8+KMKjkGA9pYE0zZ7aO tHnDzC7NHjgD357MxGotA CcQupeQ15kY1WlrZH+PHR sJlw5EIKpmIen UO9quBZtIQnlJm0wQJC3K tZlChHhWNobS6ObKXScwq pgwoblwKF6XVUxMFYmaN0 5Rp5neCbeLFRf nBKBxU6fvlyjk7ydnriwN fEmTGIdEKj3EVc9HZEflX bfIbRhJGJ9MwV7GIX6jMH jdI4fvVqxfnzw bM8nH8QdHYObcisnYf47m Q2tPwPfIwS8GWhuFrk+TE YADqRUE7GsSGFCYuyJOWO 0N6OhFit8ELVa lVghWI7lcQPsZVwvUc5xm PishAcePB0xHZNefhbnVR BbkY1nJTUhuOBmiPlcUQ0 yWLQqsxvuu918 KvLlMVB7VDGwyIUzY8Anc C8mSpEvDWJkSCIwJ4LkwQ EiKWfaT689KUewZqQ6TAE twbMjC2BzWXCh zMpdShK7l0M2He0vPA5fC J9rBEZ0AF79FH24tJUsa1 P1uIK0T6NqFSTbpxjpryx alVO7LNRgWJMv fY11bEChRVjkHo3jo1U1z 820PUXpLLNzuT23Ag1rmR tjFOBpeWGUxM0fxohjm2f vcjogIzAwMDAw SOg0JAy5FXAfmPrkTeVnD IJ0GsU9UTI3nYXnvN4thE vfuxqthI2kImv+NjkgWWV arfA8S5QlAyd8 DGUaoDazUS3iaCPpHTqvS r8tuNszwMmzZW8fYMOdaa zgQAWwdU0nNNXfnVWamVa yEN3gTJOotbtf e683MnXxPTS9AEIbxQRqZ 0LkmT5bNlEbVFYbZRYaK1 XwkPRiSOkxI026XSfyCkN 3EYBeszBmR5Vr CZTyxDrgVcD6q2U6Mx3NE KgjGA80NV49cRKus4A0nS A4X0XeJCScxkfkghewsAM 5SCAyXVXfsH34 yIUpCImtUm5ll2X3q275Z IJyLMGhzE93Rp0knRxvFK NlsFGMgN7zurnbq8ivroc gIzAwMDAwMDt0 LGf1GWXykEcoJrDbCNC4L kF2QHU7wMMnnP7lrYyrfp zfoQ7aWrw+P9F6nIO2jTV udDwvdGQ+PC90 xi04M2ArZifbKjj4RTVhH BK4gRD2rD1xQHUbFSggi9 R4hYL7R3TspzMpxh1sy8u rTSCtXKazZ69y zUGkv9M6AWNmwDB2GXEfo ZxfBvCqzX81Loe+PGNvbG hwu2RbNxtse0rqc5smoAo 9IjMwJSIgdmFs fYdoQCQ8f4LjNl33C94gT HdpZHRoPSIzMCUiIHZhbG syoz5gpT5xKs1+PGNvbCB 6cMG0hF3vPuEx XzK1IYytV279QzDqxMEsL oash9zsl5fpiMj3HcBfCR PtafQpwBzfPFR4s0GpSi0 6L1VanGqoh5Zq Cdy9cm74vENue0B9lNV5P 3BhZGRpbmctbGVmdDogMC 1vYKUkhwsjRDVllL0dKAX hY8s0EfMzXiA7 SJdfN2AkaiT2CUQvdUWnG OTmwQNKpT3rdesgl8rblj prKxWgYRCwNVd1HSb9UOL saWduOiBsZWZ0 VjA1OMR0wWWlyQ2hnXyil jmwqH9dXoo+PGh6c0ggnB ByOE0xcAQ5LW70EG51kWB cj9I5lKO0O4Oy XDXyuhnckhkssOK4YVKzQ VEiiS66Ru7anEtoPn1cVG HeGTT7MQZicITkI0OywA1 yOiAjMDAwMDAw B0CfmZPtGAalK746TUsdN kB2VHUnxsBtG0YlUUGzyN jhIdT8m6A9Tf3GKW26HS1 1LS90gRUhi4Y6 yEH1S6OgHKCjcpsqppxvy BH6HYUpGRNrhU23Bu3onL maMx2jRUUmNEL3ODUlcGA qY2KlgU7jFeAu YXKvHAWjF2UayTYlQIcnZ 842JFzgJtR6VPSuutFxE2 UvBHBldDncPrJ3i8M5Hk7 ONr68BB60HN35 fDCdy6E8fAE4Q5ElSSGxz ecivbydpGQ0DBEgPDBvbZ 75Na4zrHrmUl8zOQKrKNN 8CMSshNCqI4Cs vC0pEmNkWFFrNMWhH9Tni ISwUYmzK011LUibBiI2SX WargFaC0VqDBXdpSobOgS 6k9H3Vr4NWHqq ifq1K7AqQbfjzYY+PC90Y NNgGB54jURauTUcl2cjcG o8CgJiTIGwNUA0rQwdDSf dc3NrRZIcF89n gXEvu7O2DHZhh (more content not included)... Normal [facility] IntraOperative Documentson 0 11-29-2023 IntraOperative Documents [id number]#1 .00TIFF [facility] Consent for Procedure/Surger yon 11-28-2023 Consent for Procedure/Surgery [id number]# 1.00TIFF Normal [facility] Consent for Treatmenton 11-05 Consent for Treatment [id number]#1 .00TIFF [facility] Inpatient Patient Summaryon 11-28-2023 Inpatient Patient Summary [place] [id number] Clinical Summary Person Information Name: ALICJA REYES Age: 68 Years : 1955 Sex: Male PCP: Nancy Grace MD Marital Status: Race: White Ethnicity: Non- or Language: Azerbaijani Visit Id: Visit Reason: FEELING OF INCOMPLETE BLADDER EMPTYING AND BPH WITH LUTS Speciality: Acuity: Enc Type: Outpatient Med Service: Surgery Arrival: 11/28/2023 13:21:43 Discharge: Dispo Type: Address: [address] [place] [address] [id number] Provider Notes: Diagnosis: Problems Active Hypertension Feeling [...] Mouth every day. Refills: 6. Misc Prescription ([facility] Prescription) Alcohol prep pads Use to test blood sugars daily Dx E11.9. Refills: 3. Misc Prescription ([facility] Prescription) One Touch Ultra 2 glucose meter kit Use to tests sugars daily E11.9. Refills: 0. Misc Prescription ([facility] Prescription) One touch ultra 2 test strips Use to tests sugars once a day Dx E11.9. Refills: 3. Misc Prescription ([facility] Prescription) Soft click lancets Use to [...] MD Follow up: With: Address: [facility]: [facility] [address], [place] [phone] Business (1) Comments: As we discussed, I [...] State Cardiology Follow Up (FT) FT[facility] [place] 12/16/2023 9:00 AM 12/16/2023 9:15 AM Confirmed URO Office Visit [facility] ZAIN Casiano 01/10/2024 8:15 AM 01/10/2024 8:30 AM Confirmed FM Medicare Wellness Subsequent [facility] FM [place] 07/09/2024 8:00 AM 07/09/2024 (more content not included)... Normal [facility] IntraOperative Documentson 0 11-28-2023 IntraOperative Documents [id number]# 1.00TIFF Normal [facility] Main OR Intraoperative Recor don 11-28-2023 Main OR Intraoperative Record IntraOp Document Type FTURO Summary Primary Physician: Bryant TAO MD Finalized Date/Time: 11/28/23 15:54:06 Pt. Name: ALICJA REYESO.B./Sex: 1955 Male Med Rec #: [id number] Physician: Bryant TAO MD Financial #: [id number] Pt. Type: O Room/Bed: / Admit/Disch: 11/28/23 13:21:43 - Institution: Case Times FTURO Entry 1 Patient Times In Room 11/28/23 15:39:00 Out Room 11/28/23 15:55:00 Procedure Times Start 11/28/23 15:45:00 Stop 11/28/23 15:49:00 Anesthesia Times Last Modified By: Yolande DAVID, Monica Vogel 11/28/23 15:49:28 Case Attendance FTURO Entry 1 Entry 2 Entry 3 Case Attendee EMMY REYNOLDS, Bryant Lanier RN, Monica Singh CST, Angie Vogel Role Performed Surgeon - Primary Dude Ranch Manager - Primary Scrub - Primary Time In 11/28/23 15:39:00 11/28/23 15:39:00 11/28/23 15:39:00 Time Out 11/28/23 15:55:00 11/28/23 15:55:00 11/28/23 15:55:00 Procedure CYSTOSCOPY LOCAL(.) CYSTOSCOPY LOCAL(.) CYSTOSCOPY LOCAL(.) Comments Last Modified By: Yolande RN, Monica Lanier RN, Monica Lanier RN, Monica Vogel 11/28/23 Demi P 11/28/23 Demi P 11/28/23 15:49:34 15:49:34 15:49:34 Surgical Procedures FTURO [...] AND BPH WITH LUTS Last Modified By: Yolande DAVID, Monica Vogel 11/28/23 15:37:58 Post-Care Text: The patient is [...] Position Verified Availability Equipment, Medication Time Out Bryant TAO MD, Verified (If Participants Yolande DAVID, Monica Applicable) Demi P, Francisco BELT SEWER, Angie A Time Out Complete 11/28/23 15:44:00 Allergies Reviewed? [...] By: Monica Lanier RN 11/28/23 15:54 Normal [facility] Main OR Preoperative Recordo n 11-28-2023 Main OR Preoperative Record Holding Area Document Type FTURO Summary Primary Physician: Bryant TAO MD Finalized Date/Time: 11/28/23 15:10:28 Pt. Name: ALICJA REYES /Sex: 1955 Male Med Rec #: [id number] Physician: Bryant TAO MD Financial #: [id number] Pt. Type: O Room/Bed: / Admit/Disch: 11/28/23 [...] Complaints of Pain: No Skin Integrity Intact, [place], Warm, & Dry Vitals - EU Blood Pressure 170/90 Pulse 77 bpm Respirations 80 br/min SPO2 Last Modified By: Ivania Hager LPN 11/28/23 15:10:23 Finalized By: Ivania Hager LPN Document Signatures Signed By: Ivania Hager LPN 11/28/23 15:10 Normal [facility] Operative Reporton Operative Report Patient: ALICJA REYES Age: 68 years Sex: Male : 1955 Associated Diagnoses: None Author: Bryant TAO MD Procedure Operative Information Details: Date/ Time: 11/28/2023 15:54:00. Pre-Op Dx: Feeling of incomplete bladder emptying (HQY88-ZA R39.14, Working, Medical), Hypotonic neurogenic bladder (VIE49-QI N31.9, Working, Medical), Urinary retention (MYA60-TL R33.9, Working, Medical), BPH with obstruction/lower urinary tract symptoms (TVH37-VL N40.1, Working, Medical). Post-Op Dx: Same. Anesthesia [...] on this. He agrees with the plan.. [facility] Comment on above: Result Comment: Elec tronically Signed By: Bryant TAO MD\.br\Date and Time Signed: 11/28/23 15:57 EDT Outpatient Surgery Discharge Instructionon 11-28-2023 Outpatient Surgery Discharge Instruction [id number]# 1.00TIFF [facility] Outpatient Surgery Discharge Instruction [place] [id number] Patient Discharge Instructions PERSON INFORMATION Name: ALICJA [...] Follow up: With: Address: When: Bryant TAO [address] [place] [address], [address], [place] [phone] [facility] (1) Comments: As we discussed, I would [...] emptying the bladder intermittently. Type Location Start [facility] Cardiology Follow Up (FT) FT.Cardiology Clinic [place] 12/16/2023 9:00 AM 12/16/2023 9:15 AM Confirmed URO Office Visit [facility] ZAIN Casiano 01/10/2024 8:15 AM 01/10/2024 8:30 AM Confirmed FM Medicare Wellness Subsequent [facility] 07/09/2024 8:00 AM 07/09/2024 9:00 AM Confirmed [...] you have a fever over 100 degrees. ERIC Song ROBIN D, have received the [...] to serve you. Thank you for choosing [facility] Normal [facility] Medicine Office/Clini c Noteon 11-01-2023 Family Medicine [...] Comments influe (more content not included)... [facility] Comment on above: Result Comment: Elec tronically Signed By: Ruiz REYNOLDS, Nancy Thompson\.br\Date and Time Signed: 11/01/23 13:00 EDT [...] numbers. This can be done either in [place] or metric measurements. Note that charts and online BMI calculators are available to help you find your BMI quickly and easily without having to do these calculations yourself. To calculate your BMI in [place] ([place] measurements: 1. Measure your weight in [...] for Disease Control and Prevention: www.cdc.gov ? [place] [employer]: www.heart.org ? National Heart, Lung, and Blood [place]: www.nhlbi.nih.gov Summary ? Body mass index (BMI) is a number that is calculated from a person's weight and height. ? BMI may help estimate how much of a person's weight is composed of fat. BMI can help identify those who may be at higher risk for certain medical problems. ? BMI can be measured using [place] measurements or metric measurements. ? BMI charts are used to identify whether you are underweight, normal weight, overweight, or obese. This information is not intended to replace advice given to you by your health care provider. Make sure you discuss any questions you have with your health care provider. Document Revised: 02/13/2020 Document Reviewed: 12/21/2019 [employer] Patient Education ? 2022 [employer]. [facility] Consent for Treatmenton 10-04 Consent for Treatment [id number] .00TIFF [facility] Heart and Vascular Office/Cl inic Noteon 10-19-2023 [...] with voice recognition artificial intelligence software, specifically [employer], [employer] and or [employer]. Substitutions may have occurred due to the [...] 400 m (more content not included)... Normal [facility] Comment on above: Result Comment: Elec tronically Signed By: James CHRISTIAN, Jacinto Butler\.oliver\Date and Time Signed: 10/19/23 08:50 EDT Physician Orderon 10-19-2023 Physician Order [id number] 1.00TIFF [facility] Pathology Noteon 10-17-2023 Pathology Note [id number] .00TIFF [facility] Ambulatory Visit Summaryon 0 09-22-2023 Ambulatory Visit Summary ALICJA REYES :1955 Visit Date:09/22/2023 Ambulatory Visit Instructions Your Diagnosis Elevated PSA PIN (prostatic intraepithelial neoplasia) BPH with urinary obstruction Feeling of incomplete bladder emptying Your Care Team Attending Physician - EMMY REYNOLDS, Bryant Vogel Primary Care Physician - Ruiz REYNOLDS, Nancy Thompson This Is Your Medications List ciprofloxacin (Cipro [...] Bryant TAO MD Where: [facility] [id number] [place] [address]- \.br\ You Need to Schedule the Following Appointments\.br\ Follow Up with EMMY REYNOLDS, Bryant Vogel, URL When: \.br\ Where:\.br\ [address] [facility] [address]\.br\ [place] [address]-\.br\ \.br\ Medications\.br\ What How Much When Instructions\.br\ [...] including vitamins, herbs, eye drops, creams, and ssug-ulz-njmskzn medicines.\.br\ ? \.br\ Any problems you or [...] you to take them.\.br\ ? \.br\ Taking wpyu-oss-jamqtzg medicines, vitamins, herbs, and supplements.\.br\ Tests\.br\ You [...] \.br\ A medicine to help you relax [facility] Urology Office/Clinic Noteon 09-22-2023 Urology Office/Clinic [...] with voice recognition artificial intelligence software, specifically [employer], [employer] and or [employer]. Substitutions may have occurred due to the inherent limitations of voice recognition and artificial intelligence software. 1. Elevated PSA (R97.20: Elevated prostate specific antigen [PSA]) PSA: 06/22/11 - 0.41 11/09/18 - 0.41 01/10/20 - 0.36 02/03/21 - 0.44 07/13/22 - 0.43 04/04/23 - 6.1 MRI of prostate 07/21/23 [facility] [place] A focal area involving the anterior [...] urinary tract symptoms) MRI of prostate 07/21/23 [facility] [place] - Prostate volume 26 cc. Grossly distended [...] Feeling of incomplete bladder emptying) 06/04/23 - H ER due to chills [...] renal stone. Modest bilateral hydroureteronephrosis through UVJs. 01/23/24 - Rosa removed/void trial 06/22/23 - Nurse visit, PVR 977, pt refused cath. 06/23/23 - Taught CIC. 07/01/23 - Per message, avg residuals 40 oz, was told to increase CIC to BID. 07/12/23 - Per message, pt cathing BID, residuals 20 cc. recommended increasing to TID, UACS, BUN/CR, and (more content not included)... Normal [facility] Comment on above: Result Comment: Elec tronically Signed By: Bryant TAO MD\.br\Date and Time Signed: 09/22/23 13:08 EDT\.br\Electronically Co-Signed By: Allison Hernandez\.br\Date and Time Co-Signed: 09/22/23 13:03 EDT Heart [...] with voice recognition artificial intelligence software, specifically [employer], [employer] and or [employer]. Substitutions may have occurred due to the inherent limitations of voice recognition and artificial intelligence software. ATTESTATION: Documentation services were performed after patient or guardian consented to allow [employer] to record this visit. SAMANTHA legal billing specialist and provider reviewed before signing. SAMANTHA: [...] cap(s), Oral (more content not included)... Normal [facility] Comment on above: Result Comment: Elec tronically Signed By: Yfn REYNOLDS, Troy Santamaria\.br\Date and Time Signed: 09/14/23 09:16 EDT\.br\Electronically Co-Signed By: Darling Keen\.br\Date and Time Co-Signed: 08/19/23 18:28 EDT Pathology Noteon 09-14-2023 Pathology Note [id number]#1 .00TIFF [facility] Glucose Glucometer (BldC) [M ass/Vol]Ordered By: Bryant Tao on 09-09-2023 Glucose [Mass/Vol] 199 mg/dL [facility] Comment on above: Random Glucose Refer ence Range is dependent on time and content of last meal. Glucose of more than 200 mg/dL in a nonstressed, ambulatory subject supports the diagnosis of Diabetes Mellitus. Glucose Poct Glucometerson 0 09-09-2023 Glucose [Mass/Vol] 199 mg/dL Normal [facility] Comment on above: Result Comment: [place] Glucose Reference Range is dependent on time and content of last meal. Glucose of more than 200 mg/dL in a nonstressed, ambulatory subject supports the diagnosis of Diabetes Mellitus. PERFORMED BY: [facility] [address] [address] PATHOLOGIST VICE PRESIDENT OF NURSING ELVI MCNULTY M.D. Performed By: #### G LULS #### Point of Care testing , Glucose [Mass/Vol] 193 mg/dL Normal [facility] Comment on above: Result Comment: [facility] Glucose Reference Range is dependent on time and content of last meal. Glucose of more than 200 mg/dL in a nonstressed, ambulatory subject supports the diagnosis of Diabetes Mellitus. PERFORMED BY: [facility] [address] [place] [address] PATHOLOGIST VICE PRESIDENT OF NURSING ELVI MCNULTY M.D. Performed By: #### G LULS #### Point of Care testing , Kody 09-09-2023 L Specimen: Received: 09/09/23 Status: JUAN Castaneda Num: [id number] Spec Type: Surgical Subm Dr: Bryant Tao [...] Location Account Attending Physician Alicja Reyes 68/M ND [id number] Bryant Tao MD SPEC NUM: [id number] RECD: 09/09/23 STATUS: JUAN TOLENTINO NUM: [id number] JUDITH: 09/09/23- SUBM DR: Bryant Tao MD ENTERED: 09/09/[address] [facility] DR: SPEC TYPE: Surgical DEPT: S ORDERED: [...] Specimen: Received: 09/09/23 Status: JUAN Tolentino Num: [id number] Spec Type: Surgical Subm Dr: Bryant Tao [...] Biopsy (RT [facility] [facility]) Procedures: , Gross/Micro L4/12, PIN Cocktail/3 -------- Patient: Alicja Reyes [id number] (Continued) -------- Specimen: Received: 09/09/23 (Continued) Pathological Diagnosis (Continued) Signed (signature on file) Cy Jansen MD 09/13/23 1537 -------- Specimen: Received: 09/09/23 Status: JUAN Tolentino Num: [id number] Spec Type: Surgical Subm Dr: Bryant Tao [...] Biopsy (RT [facility] [facility]) Procedures: , Gross/Micro L412, PIN Cocktail/3 -------- Patient: Alicja Reyes [id number] (Continued) -------- Specimen: Received: 09/09/23134 (Continued) Pathological Diagnosis (Continued) fragments, and the [...] inflammation (more content not included)... Normal [facility] Operative Reporton 4 Operative Report [id number] .00TIFF Normal [facility] Progress Note-Physicianon Progress Note-Physician Patient: ALICJA [...] diabetes mellitus with hypercholesterolemia / SNOMED CT 796769025 / Confirmed linked DM with HLD per OP CDI policy. Tachycardia / SNOMED CT 2228236 / Confirmed Right flank pain / SNOMED CT 927470229 / Confirmed Urinary retention / SNOMED CT 448975563 / Confirmed Diabetic nephropathy associated with type 2 diabetes mellitus / SNOMED CT 6110688110 / Confirmed Recurrent UTI / SNOMED CT 074030823 / Confirmed Major depressive disorder, recurrent, moderate / SNOMED CT 976691821 / Confirmed added per 06/10/2023 query response. Elevated PSA / SNOMED CT 7086202195 / Confirmed Prostate cancer screening / SNOMED CT 928339882 / Confirmed Kidney stone / SNOMED CT 125860915 / Confirmed Incomplete bladder emptying / SNOMED CT 296969281 / Confirmed Hypokalemia / SNOMED CT 38706418 / Confirmed Hypercholesterolemia / SNOMED CT 08091683 / Confirmed Murmur / SNOMED CT 865676431 / Confirmed Gastroesophageal reflux disease without esophagitis / ICD-10-CM K21.9 / Confirmed Fatigue / SNOMED CT 935667066 / Confirmed Primary hypertension / SNOMED CT 00132825 / Confirmed Edema / SNOMED CT 318241239 / Confirmed SOB (shortness of breath) on exertion / SNOMED CT 215975061 / Confirmed Dizziness / SNOMED CT 7056885993 / Confirmed Diastolic dysfunction / SNOMED CT 7296763 / Confirmed Hematuria / SNOMED CT 286411193 / Confirmed BPH with urinary obstruction / SNOMED CT 8936467216 / Confirmed Alcohol abuse / SNOMED CT 71616400 / Confirmed Canceled: UTI symptoms / SNOMED CT 561656128 Canceled: Type 2 diabetes mellitus without complication, without long-term current use of insulin / ICD-10-CM E11.9 Canceled: Tachycardia / SNOMED CT 7210352 Canceled: Hospital discharge follow-up / SNOMED CT 8109936022 Canceled: Obesity / SNOMED CT 8174886448 Canceled: Alcohol abuse, in remission / SNOMED CT 485226133 Canceled: Morbid obesity / SNOMED CT 190670433 added per 05/13/2023 query response. Canceled: Urinary frequency / SNOMED CT 268863162 Canceled: Disorder of prostate / SNOMED CT 49042061 Canceled: Alcohol abuse / SNOMED CT 62025576 Histories Procedure history: back surgery. Comments: 11/15/2012 8:03 Susan Howard RN lower back Arthroscopy right knee ([id number]). Comments: 11/15/2012 8:04 Susan Howard RN right hand and elbow surgery LEFT. Comments: 11/15/2012 8:04 Susan Howard RN left Carpal tunnel release LEFT ([id number]). Hand tendon repaired LEFT ([id number]). Comments: 01/13/2023 11:49 Ruthann Mathur LPN left thumb tendon Spinal fusion x2 ([id number]). Social History Social & Psychosocial Habits Alcohol [...] adequate air exchange. Cardiovascular: Regular rhythm. Plan [place] Society of Anesthesiologists (ASA) physical status classification: Class III. Anesthetic Preoperative Plan: Anesthesia General. [facility] Comment on above: Result Comment: Elec tronically Signed By: Juan Rosario Jr, DO\Date and Time Signed: 09/02/23 09:03 EDT CHEMISTRYOrdered By: Lab ROP User on 09-01-2023 Glucose [Mass/Vol] 156 mg/dL High 55 - 99 mg/dL FT C POC Subsection POC Device SN [id number] Invalid Interpretation Code [facility] POC Subsection POC User ID [id number] 1 Invalid Interpretation Code [facility] POC Subsection POC Username JOSE JIMENEZ Invalid Interpretation Code [facility] POC Subsection Capillary Glucose POCon 08-05 Glucose [Mass/Vol] 156 mg/dL High 55-99 [facility] Comment on above: Performed By: #### 2 [id number] ####[facility] [address] [place] [address] Consent for Procedure/Surger yon 09-01-2023 Consent for Procedure/Surgery [id number]# 1.00TIFF [facility] Consent for Treatmenton 08-05 Consent for Treatment [id number]#1 .00TIFF [facility] H&P Updateon 09-01-2023 H&P Update [id number]# 1.00TIFF [facility] Progress Note-Physicianon Progress Note-Physician Patient: ALICJA REYES [...] and his agree with the plan. Normal [facility] Comment on above: Result Comment: Elec tronically Signed By: EMMY REYNOLDS, Bryant Chamorro.br\Date and Time Signed: 09/01/23 14:46 EDT Physician Orderon 08-22-2023 Physician Order [id number]#1. 00TIFF Normal [facility] U Microalbon 08-18-2023 Albumin DL <= 20 mg/L (U) [Mass/Vol] 7.8 mg/dL High 0.0-1.9 [facility] Comment on above: Performed By: #### 1 [id number] ####[facility] [address] [place] [address] Physician Orderon 08-17-2023 Physician Order [id number]# 1.00TIFF Normal [facility] U Protein/Creat Ratioon 08-04 Protein/Creatinine (U) [Ratio] 49.30 mg/gm Cr Normal .00-200.00 [facility] Comment on above: Performed By: #### 1 [id number] ####[facility] [address] [place] [address] U Creatinine 46.0 mg/dL Invalid Interpretation Code [facility] Comment on above: Performed By: #### 1 [id number] ####[facility] [address] [place] [address] Ur Total Protein 22.7 mg/dL Invalid Interpretation Code [facility] Comment on above: Performed By: #### 1 [id number] ####[facility] [address] [place] [address] Ambulatory Visit Summaryon 0 08-15-2023 Ambulatory Visit Summary ALICJA REYES :1955 Visit Date:08/15/2023 Ambulatory Visit Instructions Your Diagnosis Primary hypertension Type 2 diabetes mellitus with hypercholesterolemia Murmur BMI 34.0-34.9,adult Smokeless tobacco use Class 1 obesity due to excess calories in adult Diastolic dysfunction Pure hypercholesterolemia, unspecified Your Care Team Attending Physician - Nancy Grace MD Primary Care Physician - Nancy Grace MD This Is Your Medications List [...] Yfn REYNOLDS, Troy Santamaria Where: [facility] [place] 2023 1:30 PM EDT With: Where: [facility] Tuesday 8:00 AM EST With: Where: [facility] [place] Normal [facility] BMPon 08-15-2023 Anion gap [Moles/Vol] 15 mmol/L Normal 6-[address] [facility] Comment on above: Performed By: #### 7 [id number], [id number], [id number] #### [facility] [address] [place] [address] Calcium [Mass/Vol] 8.3 mg/dL Low 8.9-11.1 [facility] Comment on above: Performed By: #### 7 [id number], [id number], [id number] #### [facility] [address] [place] [address] Chloride [Moles/Vol] 101 mmol/L Normal 101-111 [facility] Comment on above: Performed By: #### 7 [id number], [id number], [id number] #### [facility] [address] [place] [address] CO2 [Moles/Vol] 27 mmol/L Normal 21-31 [facility] Comment on above: Performed By: #### 7 [id number], [id number], [id number] #### [facility] [address] [place] [address] Creatinine [Mass/Vol] 1.4 mg/dL High 0.5-1.[address] [facility] Comment on above: Performed By: #### 7 [id number], [id number], 9264915 #### [facility] [address] [place] [address] Glucose [Mass/Vol] 258 mg/dL High 55-199 [facility] Comment on above: Performed By: #### 7 [id number], [id number], [id number] #### [facility] [address] [place] [address] Potassium [Moles/Vol] 3.6 mmol/L Normal 3.5-5.[address] [facility] Comment on above: Performed By: #### 7 [id number], 43043076, 1257088 #### [facility] [address] [place] [address] Sodium [Moles/Vol] 139 mmol/L Normal 135-145 [facility] Comment on above: Performed By: #### 7 [id number], [id number], [id number] #### [facility] [address] [place] [address] Urea nitrogen [Mass/Vol] 16 mg/dL Normal 5-21 [facility] Comment on above: Performed By: #### 7 [id number], [id number], 9850720 #### [facility] [address] [place] [address] Urea nitrogen/Creatinine [Mass ratio] 11 No Units Normal 10-20 [facility] Comment on above: Performed By: #### 7 [id number], [id number], [id number] #### [facility] [address] [place] [address] CHEMISTRYOrdered By: SYSTEM SYSTEM on 08-15-2023 Anion [...] (Bld) [Mass fraction] 7.4 % High <=5.9% [facility] ChemAutoSS Family Medicine Office/Clini c Noteon 08-15-2023 [...] about ordering him a BP unit to [facility]. needs zofran refilled to [facility] also also needs omeprazole refilled has to [...] Weight Dosing (more content not included)... Normal [facility] Comment on above: Result Comment: Elec tronically Signed By: Ruiz REYNOLDS, Nancy Cordoba.br\Date and Time Signed: 08/15/23 07:18 EDT [id number] 08-15-2023 HbA1c (Bld) [Mass fraction] 7.4 % High <=5.9 [facility] Comment on above: Performed By: #### 7 [id number], [id number], [id number] #### [facility] [address] [place] [address] Patient Educationon 08-15-19 Patient Education Nutrition BMI [...] numbers. This can be done either in [place] (U.S[place] or metric measurements. Note that charts and online BMI calculators are available to help you find your BMI quickly and easily without having to do these calculations yourself. To calculate your BMI in [place] (U.[place].) measurements: 1. Measure your weight in [...] for Disease Control and Prevention: www.cdc.gov ? [place] Heart Association: www.heart.org ? National Heart, Lung, and Blood [place]: www.nhlbi.nih.gov Summary ? Body mass index (BMI) is a number that is calculated from a person's weight and height. ? BMI may help estimate how much of a person's weight is composed of fat. BMI can help identify those who may be at higher risk for certain medical problems. ? BMI can be measured using [place] measurements or metric measurements. ? BMI charts are used to identify whether you are underweight, normal weight, overweight, or obese. This information is not intended to replace advice given to you by your health care provider. Make sure you discuss any questions you have with your health care provider. Document Revised: 02/13/2020 Document Reviewed: 12/21/2019 [employer] Patient Education ? 2022 [employer] Normal [facility] eGFRon 08-15-2023 eGFR 54 mL/min/1.73 m2 Low >=59 [facility] Comment on above: Order Comment: Order added by Discern Expert. Performed By: #### 7 [id number], [id number], [id number] #### [facility] [address] [place] [address] CHEMISTRYOrdered By: SYSTEM SYSTEM on 08-11-2023 Anion [...] 32.1 s Normal 25.1 - 36.5 second(s) [facility] Auto Coag Comment on above: Interpretive Data: Jaspreet willis 15 days - 4 weeks 1 - 5 months 6 - 11 months 1 - 5 years 6 - 10 years 11 - 17 years PTT Mean: 35.4 (27.6-45.6) Mean: 33.5 (24.8-40.7) Mean: 32.4 (25.1-40.7) Mean: 31.6 (24.0-39.2) Mean: 31.6 (26.9-38.7) Mean: 31.0 (24.6-38.4) Pediatric Reference ranges were obtained from a study by bhaskar Mo prepared from 1437 samples obtained at 7 different centers using the same coagulation reagent and instrumentation as [facility]. Currently there are no coagulation studies available worldwide for children to 14 days, and no normal ranges. Heparin therapeutic range (represented by Anti-Factor Xa activity of 0.2 - 0.4 U/mL) corresponds to PTT of 56.6 - 109.0 sec. INR Coag (PPP) [Relative time] 1.17 {INR} Invalid Interpretation Code [facility]ag Comment on above: Interpretive Data: I NR results are specifically intended to assess patients stabilized on long-term Anticoagulation therapy suggested INR s Less Intensive Anticoagulation 2.0 3.0 Conventional Range 3.0 4.5 PT Coag (PPP) [Time] 13.1 s High 9.4 - 1 2.5 second(s) [facility] Comment on above: Interpretive Data: 1 5 days - 4 weeks 1 - 5 months 6 -11 months 1-5 years 6-10 years 11 -17 years Mean: 11.2 (9.5-12.6) Mean: 11.0 (9.7-12.8) Mean: 11.0 (9.8-13.0) Mean: 11.3 (9.9-13.4) Mean: 11.7 (10.0-14.6) Mean: 11.8 (10.0 - 14.1) Pediatric Reference ranges were obtained from a study by Jan Fluvanna, et al. prepared from 1437 samples obtained at 7 different centers using the same coagulation reagent and instrumentation as [facility]. Currently there are no coagulation studies available worldwide for children to 14 days, and no normal ranges. HEMATOLOGYOrdered By: SYSTEM SYSTEM on 08-11-2023 Basophils/100 [...] Normal 4.0 - 11.0 E9/L Remisol Heme Creatinine (Bld) [Mass/Vol]O rdered By: Ramandeep Porter on 07-21-2023 Creatinine [Mass/Vol] 1.2 mg/dL 0.6-1.3 [facility] Comment on above: ER/ESD physician is notified/shown all ISTAT results.Critical values may be confirmed by laboratory testing ifdeemed necessary by ER attending doctor. ISTAT XRay CREon 07-21-2023 Creatinine [Mass/Vol] 1.2 mg/dL Normal 0.6-1.3 [facility] Comment on above: Result Comment: ER/E SD physician is notified/shown all ISTAT results. Critical values may be confirmed by laboratory testing if deemed necessary by ER attending doctor. Performed By: #### I SCRE #### [address] ISTAT GFR > 60.0 Normal [facility] Comment on above: Result Comment: PERF ORMED BY: [place] [address] PATHOLOGIST VICE PRESIDENT OF NURSING ELVI MCNULTY M.D. Performed By: #### I SCRE #### [facility] [address] [place] [address] MR prostate wo/w conon 07-21 MR prostate wo/w con [facility] [place] [address] [place] [address] MRI Report Signed Patient: Alicja Reyes MR#: [id number] : 1955 Acct:[id number] Age/Sex: 68 / M ADM Date: 07/21/23 Loc: Room: [facility] Dr: Ramandeep Porter PA-C Copies to: [...] contemplated. Impression dictated by: Ghanshyam Schultz Jr., D.O.07/21/2023 1:08 PM Dictation Location: [place] [address] Transcribed By: [facility] 07/21/23 1308 Dictated By: Ghanshyam Schultz Jr, DO 07/21/23 1304 Signed By: 07/21/23 1308 [facility] No Panel InformationOrdered By: Ramandeep Porter on 07-21-2023 Bedside Estimated GFR (eGFR) > 60.0 [facility] CHEMISTRYOrdered By: SYSTEM SYSTEM on 06-28-2023 [...] S_CA.0 Called to and read back by: WHITE MIXING OPERATOR ELI at: 06/13/2023 18:59:55 by:ELI LAWSON Chloride [...] S_K:2.7 Called to and read back by: WHITE MIXING OPERATOR ELI at: 06/13/2023 18:59:55 by:ELI LAWSON Sodium [...] g/dL Normal 3.3 - 5.0 gm/dL [facility] Remisol Albumin/Globulin [Mass ratio] 0.8 {ratio} Low 1.1 - 2.2 FT Remisol ALP [Catalytic activity/Vol] 80 [iU]/d Normal 21 - 98 Int._Unit/L [facility] Remisol ALT No additional P-5'-P [Catalytic activity/Vol] 19 [iU]/d Normal 6 - 46 Int._Unit/L [facility] Remisol Anion gap [Moles/Vol] 16 mmol/L Normal 6 - 16 mEq/L F [facility] Remisol AST [Catalytic activity/Vol] 19 [iU]/d Normal [...] rate/Area] 59 mL/min/1.73 m2 Normal >=59mL/min/1.73 m2 [facility] Chem S Comment on above: Interpretive Data: [...] mmol/L Low 3.5 - 5.3 mmol /L [facility] Remisol Protein [Mass/Vol] 7.5 g/dL Normal 6.0 [...] used for this result was chemiluminescence using [employer]'s Access Hybritech PSA reagent. CHEMISTRYOrdered By: SYSTEM [...] 3.6 g/dL Normal 1.4 - 4.0 gm/dL [facility] Remisol Glucose [Mass/Vol] 314 mg/dL High 55 - 199 mg/dL [facility] Remisol Potassium [Moles/Vol] 4.2 mmol/L Normal 3.5 [...] 12.8 g/dL Low 13.5 - 17.5 gm/dL FT HemeAutoSS MCH (RBC) [Entitic mass] 33.7 pg Normal 27.0 - 34.0 pg FT HemeAutoSS MCHC (RBC) [Mass/Vol] 34.9 g/dL Normal 31.4 - 36.0 gm /dL FT HemeAutoSS MCV (RBC) [Entitic vol] 96.4 fL Normal 80.0 - 100.0 fL FT HemeAutoSS Platelet mean volume (Bld) [Entitic vol] 7.6 fL Normal 6.4 - 10.8 fL FT HemeAutoSS Platelets (Bld) [#/Vol] 284.0 E9/L Normal 150.0 - 500.0 E9/L FT HemeAutoSS RBC (Bld) [#/Vol] 3.8 E12/L Low 4.3 - 5.9 E12/L FT HemeAutoSS WBC corrected for nucl RBC Auto (Bld) [#/Vol] 5.5 E9/L Normal 4.0 - 11.0 E9/L [facility] HemeAutoSS CBC AUTO DIFFon 07-13-2022 BASO # 0.1 103/ul Normal 0.0-0.1 [facility] Comment on above: Performed By: #### C BC #### [facility] [address] [place] [address] Dr. Pilo Jansen Basophils/100 WBC (Bld) 1.0 % Normal 0.2-2.0 [facility] Comment on above: Performed By: #### C BC #### [facility] [address] [place] [address] Dr. Pilo Jansen EO # 0.1 103/ul Normal 0.0-0.7 [facility] Comment on above: Performed By: #### C BC #### [facility] [address] [place] [address] Dr. Pilo Jansen Eosinophils/100 WBC (Bld) 2.1 % Normal 0.9-7.0 [facility] Comment on above: Performed By: #### C BC #### [facility] [address] [place] [address] Dr. Pilo Jansen Erythrocyte distribution width (RBC) [Ratio] 12.0 % Normal 11.0-15.0 [facility] Comment on above: Performed By: #### C BC #### [facility] [address] [place] [address] Dr. Pilo Jansen Hematocrit (Bld) [Volume fraction] 40.7 % Critically low 42.0-54.0 [facility] Comment on above: Performed By: #### C BC #### [facility] [address] [place] [address] Dr. Pilo Jansen Hemoglobin (Bld) [Mass/Vol] 13.4 g/dL Critically low 14.0-18.0 [facility] Comment on above: Performed By: #### C BC #### [facility] [address] [place] [address] Dr. Pilo Jansen IG # 0.02 10e3/ul Normal 0.00-0.03 [facility] Comment on above: Performed By: #### C BC #### [facility] [address] [place] [address] Dr. Pilo Jansen IG % 0.4 % Normal 0.0-0.5 [facility] Comment on above: Performed By: #### C BC #### [facility] [address] [place] [address] Dr. Pilo Jansen LYMPH # 1.4 103/ul Normal 1.2-3.8 [facility] Comment on above: Performed By: #### C BC #### [facility] [address] [place] [address] Dr. Pilo Jansen Lymphocytes/100 WBC (Bld) 26.1 % Normal 20.5-60.0 [facility] Comment on above: Performed By: #### C BC #### [facility] [address] [place] [address] Dr. Pilo Jansen MANUAL DIFF REQ NO Normal [facility] Comment on above: Performed By: #### C BC #### [facility] [address] [place] [address] Dr. Pilo Jansen MCH (RBC) [Entitic mass] 33.2 pg Normal 25.9-34.0 [facility] Comment on above: Performed By: #### C BC #### [facility] [address] [place] [address] Dr. Pilo Jansen MCHC (RBC) [Mass/Vol] 32.9 g/dL Normal 29.9-35.2 [facility] Comment on above: Performed By: #### C BC #### [facility] [address] [place] [address] Dr. Pilo Jansen MCV (RBC) [Entitic vol] 100.7 fL Critically high 80.0-94.0 [facility] Comment on above: Performed By: #### C BC #### [facility] [address] [place] [address] Dr. Pilo Jansen MONO # 0.5 103/ul Normal 0.3-0.8 [facility] Comment on above: Performed By: #### C BC #### [facility] [facility] [address] [place] [address] Dr. Pilo Jansen Monocytes/100 WBC (Bld) 9.6 % Normal 1.7-12.0 [facility] Comment on above: Performed By: #### C BC #### [facility] [address] [place] [address] Dr. Pilo Jansen NEUT # 3.2 103/ul Normal 1.4-6.5 [facility] Comment on above: Performed By: #### C BC #### [facility] [address] [place] [address] Dr. Pilo Jansen Neutrophils/100 WBC (Bld) 60.8 % Normal 43.0-75.0 [facility] Comment on above: Performed By: #### C BC #### [facility] [address] [place] [address] Dr. Pilo Jansen Platelet mean volume (Bld) [Entitic vol] 9.3 fL Critically low 9.5-13.5 [facility] Comment on above: Performed By: #### C BC #### [facility] [address] [place] [address] Dr. Pilo Jansen PLT 204 103/ul Normal 150-450 [facility] Comment on above: Performed By: #### C BC #### [facility] [address] [place] [address] Dr. Pilo Jansen RBC 4.04 106/ul Critically low 4.70-6.10 [facility] Comment on above: Performed By: #### C BC #### [facility] [address] [place] [address] Dr. Pilo Jansen WBC 5.2 103/ul Normal 4.0-11.0 [facility] Comment on above: Performed By: #### C BC #### [facility] [address] [place] [address] Dr. Pilo Jansen GLYCOHEMOGLOBIN A1Con 2022 ADA RECOMMENDATION SEE BELOW Normal [facility] Comment on above: Result Comment: ADA RECOMMENDED LIMIT 4.0 - 6.0 ADA THERAPEUTIC TARGET < 7.0 ACTION SUGGESTED > 7.0 Performed By: #### A 1C #### [facility] [address] [place] [address] Dr. Pilo Jansen Glucose [Mass/Vol] 189 mg/dL Normal [facility] Comment on above: Performed By: #### A 1C #### [facility] [address] [place] [address] Dr. Pilo Jansen HbA1c (Bld) [Mass fraction] 8.2 % Critically high 4.5-6.2 [facility] Comment on above: Performed By: #### A 1C #### [facility] [address] [place] [address] Dr. Pilo Jansen LIPID PROFILEon 07-13-2022 CHOL-HDL RATIO NORM SEE BELOW Normal [facility] Comment on above: Result Comment: 3.3 - 4.4 LOW RISK 4.4 - 7.1 AVERAGE RISK 7.1 - 11.0 MODERATE RISK >11.0 HIGH RISK Performed By: #### L IPID, CMP #### [facility] [address] [place] [address] Dr. Pilo Jansen Cholesterol [Mass/Vol] 157 mg/dL Normal <=200 [facility] Comment on above: Performed By: #### L IPID, CMP #### [facility] [address] [address] [address] Pilo Jansen Cholesterol in HDL [Mass/Vol] 53 mg/dL Normal 40-60 [facility] Comment on above: Performed By: #### L IPID, CMP #### [facility] [address] [address] [address] Pilo Jansen Cholesterol in LDL [Mass/Vol] 81.8 mg/dL Normal [facility] Comment on above: Performed By: #### L IPID, CMP #### [facility] [address] [address] [address] Pilo Jansen Cholesterol.total/Cho lesterol in HDL [Mass ratio] 3.0 {ratio} Normal [facility] Comment on above: Performed By: #### L IPID, CMP #### [facility] [address] [place] [address] Dr. Pilo aJnsen HDL NORMAL > or = 60 mg/dl - LO W CARDIOVASCULAR RISK <40 mg/dl - HIGH CARDIOVASCULAR RISK Normal [facility] Comment on above: Performed By: #### L IPID, CMP #### [facility] [address] [address] [address] Pilo Jansen LDL CALC NORMAL SEE BELOW Normal [facility] Comment on above: Result Comment: <100 mg/dl OPTIMAL 100 - 129 mg/dl NEAR OR ABOVE OPTIMAL 130 - 159 mg/dl BORDERLINE HIGH 160 - 189 mg/dl HIGH >190 mg/dl VERY HIGH Performed By: #### L IPID, CMP #### [facility] [address] [address] [address] Pilo Jansen Triglyceride [Mass/Vol] 111 mg/dL Normal <=150 [facility] Comment on above: Performed By: #### L IPID, CMP #### [facility] [address] [place] [address] Dr. Pilo Jansen VLDL CALC 22.2 mg/dL Normal [facility] Comment on above: Performed By: #### L IPID, CMP #### [facility] [address] [address] [address] Pilo Jansen PROF 14(COMP METB)on 023 Albumin [Mass/Vol] 3.9 g/dL Normal 3.4-5.0 [facility] Comment on above: Performed By: #### L IPID, CMP #### [facility] [address] [place] [address] Dr. Pilo Jansen Albumin/Globulin [Mass ratio] 1.1 {ratio} Normal [facility] Comment on above: Performed By: #### L IPID, CMP #### [facility] [address] [address] [address] Pilo Jansen ALP [Catalytic activity/Vol] 81 U/L Normal 46-116 [facility] Comment on above: Performed By: #### L IPID, CMP #### [facility] [address] [place] [address] Dr. Pilo Jansen ALT [Catalytic activity/Vol] 28 U/L Normal 16-63 [facility] Comment on above: Performed By: #### L IPID, CMP #### [facility] [address] [place] [address] Dr. Plio Jansen Anion gap [Moles/Vol] 13.6 mmol/L Normal [facility] Comment on above: Performed By: #### L IPID, CMP #### [facility] [address] [place] [address] Dr. Pilo Jansen AST [Catalytic activity/Vol] 23 U/L Normal 15-37 [facility] Comment on above: Performed By: #### L IPID, CMP #### [facility] [address] [place] [address] Dr. Pilo Jansen Bilirubin [Mass/Vol] 0.8 mg/dL Normal 0.2-1.0 [facility] Comment on above: Performed By: #### L IPID, CMP #### [facility] [address] [place] [address] Dr. Pilo Jansen Calcium [Mass/Vol] 9.3 mg/dL Normal 8.5-10.1 [facility] Comment on above: Performed By: #### L IPID, CMP #### [facility] [address] [place] [address] Dr. Pilo Jansen Chloride [Moles/Vol] 101 mmol/L Normal 98-107 [facility] Comment on above: Performed By: #### L IPID, CMP #### [facility] [address] [address] [address] Pilo Jansen CO2 [Moles/Vol] 29.7 mmol/L Normal 21.0-32.0 [facility] Comment on above: Performed By: #### L IPID, CMP #### [facility] [address] [place] [address] Dr. Pilo Jansen Creatinine [Mass/Vol] 0.86 mg/dL Normal 0.70-1.30 [facility] Comment on above: Performed By: #### L IPID, CMP #### [facility] [address] [place] [address] Dr. Pilo Jansen EGFR-AF RUSSIAN >60 Normal >=60 [facility] Comment on above: Performed By: #### L IPID, CMP #### [facility] [address] [place] [address] Dr. Pilo Jansen EGFR-NON AF RUSSIAN >60 Normal >=60 [facility] Comment on above: Performed By: #### L IPID, CMP #### [facility] [address] [place] [address] Dr. Pilo Jansen Globulin (S) [Mass/Vol] 3.7 g/dL Normal [facility] Comment on above: Performed By: #### L IPID, CMP #### [facility] [address] [address] [address] Pilo Jansen Glucose [Mass/Vol] 186 mg/dL Critically high 74-106 T [facility] Comment on above: Performed By: #### L IPID, CMP #### [facility] [address] [address] [address] Pilo Jansen Potassium [Moles/Vol] 4.3 mmol/L Normal 3.5-5.1 [facility] Comment on above: Performed By: #### L IPID, CMP #### [facility] [address] [place] [address] Dr. Pilo Jansen Protein [Mass/Vol] 7.6 g/dL Normal 6.4-8.2 [facility] Comment on above: Performed By: #### L IPID, CMP #### [facility] [address] [address] [address] Pilo Jansen Sodium [Moles/Vol] 140 mmol/L Normal 136-145 [facility] Comment on above: Performed By: #### L IPID, CMP #### [facility] [address] [address] [address] Pilo Jansen Urea nitrogen [Mass/Vol] 10.0 mg/dL Normal 7.0-18.0 [facility] Comment on above: Performed By: #### L IPID, CMP #### [facility] [address] [address] [address] Pilo Jansen Urea nitrogen/Creatinine [Mass ratio] 11.6 mg/mg Normal [facility] Comment on above: Performed By: #### L IPID, CMP #### [facility] [address] [address] [address] Pilo Jansen Vital Signs Date Time Vital Sign Value Performing Clinician Faci lity 08-14-2024 14:01-0400 Body height 175.3 cm Chloe WORLEY Work Phone: [facility] 08-14-2024 14:01-0400 Body mass index (BMI) [Ratio] 37.36 kg/m2 Chloe WORLEY Work Phone: [facility] 08-14-2024 14:01-0400 Body weight 114.76 kg Chloe WORLEY Work Phone: [facility] 01-13-2024 08:53-0400 Blood Pressure Location [employer] [facility] 01-13-2024 08:53-0400 Diastolic blood pressure 78 mm[Hg] Javier Salehnus [facility] 01-13-2024 08:53-0400 Heart rate 79 /min Javier Kirnus [facility] 01-13-2024 08:53-0400 Respiratory rate 18 /min Javier Salehn [facility] 01-13-2024 08:53-0400 SaO2% (BldA) [Mass fraction] 99 % Javier Salehnus [facility] 01-13-2024 08:53-0400 Systolic blood pressure 138 mm[Hg] Javier Salehnus [facility] 01-10-2024 08:19-0400 Blood Pressure Location Bryant TAO [facility] 01-10-2024 08:19-0400 Diastolic blood pressure 74 mm[Hg] Bryant TAO [facility] 01-10-2024 08:19-0400 Heart rate 94 /min Bryant TAO [facility] 01-10-2024 08:19-0400 Systolic blood pressure 138 mm[Hg] Bryant TAO [facility] 12-30-2023 14:00-0400 Hourly Rounding Artemio Roer [facility] 12-30-2023 14:00-0400 Promise to Return Artemio Leroycker [facility] 12-30-2023 13:00-0400 Hourly Rounding Artemio Leroycker [facility] 12-30-2023 13:00-0400 Promise to Return Artemio Leroycker [facility] 12-30-2023 12:34-0400 Diastolic blood pressure 100 mm[Hg] Artemio Leroycker [facility] 12-30-2023 12:34-0400 Systolic blood pressure 161 mm[Hg] Artemio Olivares [facility] 12-30-2023 12:00-0400 Hourly Rounding Artemio Olivares [facility] 12-30-2023 12:00-0400 Promise to Return Artemio Olivares [facility] 12-30-2023 11:50-0400 Heart rate 104 /min Artemio Roer [facility] 12-30-2023 11:50-0400 SaO2% (BldA) [Mass fraction] 98 % Artemio Olivares [facility] 12-30-2023 11:45-0400 Body temperature 97.7 [degF] Artemio Roer [facility] 12-30-2023 11:45-0400 Diastolic blood pressure 100 mm[Hg] Artemio Olivares [facility] 12-30-2023 11:45-0400 Mean blood pressure 120 mm[Hg] Artemio Olivares [facility] 12-30-2023 11:45-0400 Systolic blood pressure 161 mm[Hg] Artemio Roer [facility] 12-30-2023 08:00-0400 Blood Pressure Location Artemio Roer [facility] 12-30-2023 08:00-0400 Body temperature 98.6 [degF] Artemio Roer [facility] 12-30-2023 08:00-0400 Diastolic blood pressure 91 mm[Hg] Artemio Roer [facility] 12-30-2023 08:00-0400 Heart rate 100 /min Artemio Roer [facility] 12-30-2023 08:00-0400 Systolic blood pressure 173 mm[Hg] Artemio Roer [facility] 12-30-2023 04:00-0400 Heart rate 74 /min Artemio Roer [facility] 12-30-2023 03:39-0400 Heart rate 75 /min Artemio Roer [facility] 12-30-2023 03:39-0400 SaO2% (BldA) [Mass fraction] 97 % Artemio Roer [facility] 12-30-2023 03:39-0400 Body temperature 97.52 [degF] Artemio Roer [facility] 12-30-2023 03:39-0400 Mean blood pressure 101 mm[Hg] Artemio Roer [facility] 12-29-2023 21:20-0400 Body temperature 97.16 [degF] Artemio Roer [facility] 12-29-2023 21:18-0400 Mean blood pressure 121 mm[Hg] Artemio Roer [facility] 12-29-2023 20:00-0400 Mean blood pressure 106 mm[Hg] Artemio Roer [facility] 12-29-2023 16:57-0400 Blood Pressure Location Artemio Roer [facility] 12-29-2023 16:57-0400 Body temperature 98.42 [degF] Artemio Leroycker [facility] 12-29-2023 16:00-0400 Mean blood pressure 118 mm[Hg] Artemio Leroycker [facility] 12-29-2023 16:00-0400 Respiratory rate 20 /min Artemio Olivares [facility] 12-29-2023 15:00-0400 Mean blood pressure 138 mm[Hg] Artemio Olivares [facility] 12-29-2023 15:00-0400 Respiratory rate 14 /min Artemio Olivares [facility] 12-29-2023 14:07-0400 Respiratory rate 23 /min Artemio Olivares [facility] 12-29-2023 13:50-0400 Body temperature 97.88 [degF] Artemio Olivares [facility] 12-29-2023 13:50-0400 Respiratory rate 18 /min Artemio Olivares [facility] 10-19-2023 08:26-0400 Diastolic blood pressure 88 mm[Hg] Jacinto Ramirez [facility] 10-19-2023 08:26-0400 Mean blood pressure 111 mm[Hg] Jacinto Ramirez [facility] 10-19-2023 08:26-0400 Systolic blood pressure 158 mm[Hg] Jacinto Ramirez [facility] 10-19-2023 08:12-0400 Blood Pressure Location Jacinto Ramirez [facility] 10-19-2023 08:12-0400 Diastolic blood pressure 84 mm[Hg] Jacinto Ramirez [facility] 10-19-2023 08:12-0400 Heart rate 94 /min Jacinto Ramirez [facility] 10-19-2023 08:12-0400 SaO2% (BldA) [Mass fraction] 98 % Jacinto Ramirez [facility] 10-19-2023 08:12-0400 Systolic blood pressure 168 mm[Hg] Jacinto Ramirez [facility] 09-22-2023 12:35-0400 Blood Pressure Location Bryant TAO [facility] 09-22-2023 12:35-0400 Body temperature 97.16 [degF] Bryant TAO [facility] 09-22-2023 12:35-0400 Diastolic blood pressure 84 mm[Hg] Bryant TAO [facility] 09-22-2023 12:35-0400 Heart rate 84 /min Bryant TAO [facility] 09-22-2023 12:35-0400 Systolic blood pressure 136 mm[Hg] Bryant TAO [facility] 09-09-2023 14:25-0400 Diastolic blood pressure 79 mm[Hg] MD Nanyc Grace Work Phone: [facility] 09-09-2023 14:25-0400 Heart rate 85 /min MD Nancy Grace Work Phone: [facility] 09-09-2023 14:25-0400 Respiratory rate 16 /min MD Nancy Grace Work Phone: [facility] 09-09-2023 14:25-0400 SaO2% (BldA) [Mass fraction] 99 % MD Nancy Grace Work Phone: [facility] 09-09-2023 14:25-0400 Systolic blood pressure 131 mm[Hg] MD aNncy Grace Work Phone: [facility] 09-09-2023 13:40-0400 Inhaled oxygen flow rate 8 L/min MD Nancy Grace Work Phone: [facility] 09-09-2023 12:40-0400 Body height 175.26 cm MD Nancy Grace Work Phone: [facility] 09-09-2023 12:40-0400 Body mass index (BMI) [Ratio] 34.1 kg/m2 MD Nancy Grace Work Phone: [facility] 09-09-2023 12:40-0400 Body weight 104.77 kg MD Nancy Grace Work Phone: [facility] 09-09-2023 11:49-0400 Body temperature 98.8 [degF] MD Nancy Grace Work Phone: [facility] 09-01-2023 11:42-0400 Diastolic blood pressure 98 mm[Hg] Bryant COOK [facility] 09-01-2023 11:42-0400 Systolic blood pressure 170 mm[Hg] Bryant COOK [facility] 09-01-2023 11:40-0400 Diastolic blood pressure 99 mm[Hg] Bryant COOK [facility] 09-01-2023 11:40-0400 Systolic blood pressure 190 mm[Hg] Bryant COOK [facility] 09-01-2023 11:08-0400 Diastolic blood pressure 102 mm[Hg] Bryant COOK [facility] 09-01-2023 11:08-0400 Systolic blood pressure 178 mm[Hg] Bryant COOK [facility] 09-01-2023 10:50-0400 Heart rate 96 /min Bryant COOK [facility] 09-01-2023 10:23-0400 Blood Pressure Location Bryant COOK [facility] 09-01-2023 10:23-0400 Heart rate 108 /min Bryant TAO [facility] 09-01-2023 10:23-0400 Mean blood pressure 147 mm[Hg] Bryant TAO [facility] 09-01-2023 10:22-0400 Heart rate 108 /min Bryant TAO [facility] 09-01-2023 10:22-0400 SaO2% (BldA) [Mass fraction] 98 % Bryant TAO [facility] 09-01-2023 10:22-0400 Blood Pressure Location Bryant TAO [facility] 09-01-2023 10:22-0400 Mean blood pressure 150 mm[Hg] Bryant ATO [facility] 09-01-2023 10:21-0400 Respiratory rate 20 /min Bryant TAO [facility] 09-01-2023 10:21-0400 Body temperature 97.7 [degF] Bryant TAO [facility] 08-19-2023 11:59-0400 Diastolic blood pressure 98 mm[Hg] Troy Warrenguilherme [facility] 08-19-2023 11:59-0400 Mean blood pressure 125 mm[Hg] Troy Christofferson [facility] 08-19-2023 11:59-0400 Systolic blood pressure 180 mm[Hg] Troy Christofferson [facility] 08-19-2023 11:52-0400 Diastolic blood pressure 100 mm[Hg] Troy Christofferson [facility] 08-19-2023 11:52-0400 Heart rate 106 /min Troy Warrenerson [facility] 08-19-2023 11:52-0400 SaO2% (BldA) [Mass fraction] 97 % Troy Coulter [facility] 08-19-2023 11:52-0400 Systolic blood pressure 170 mm[Hg] Troy Coulter [facility] 08-11-2023 09:41-0500 Diastolic blood pressure 96 mm[Hg] Bryant TAO [facility] 08-11-2023 09:41-0500 Heart rate 84 /min Bryant TAO [facility] 08-11-2023 09:41-0500 Mean blood pressure 126 mm[Hg] Bryant TAO [facility] 08-11-2023 09:41-0500 Systolic blood pressure 186 mm[Hg] Bryant TAO [facility] 08-11-2023 09:41-0500 Heart rate 88 /min Bryant TAO [facility] 08-11-2023 09:41-0500 SaO2% (BldA) [Mass fraction] 99 % Bryant TAO [facility] 08-11-2023 09:40-0500 Diastolic blood pressure 95 mm[Hg] Bryant TAO [facility] 08-11-2023 09:40-0500 Mean blood pressure 127 mm[Hg] Bryant TAO [facility] 08-11-2023 09:40-0500 Systolic blood pressure 191 mm[Hg] Bryant COOK [facility] 08-11-2023 09:40-0500 Respiratory rate 20 /min Bryant TAO [facility] 07-27-2023 11:03-0500 Blood Pressure Location RAMANDEEP PORTER [facility] 07-27-2023 11:03-0500 Diastolic blood pressure 76 mm[Hg] RAMANDEEP PORTER [facility] 07-27-2023 11:03-0500 Heart rate 84 /min RAMANDEEP PORTER [facility] 07-27-2023 11:03-0500 Systolic blood pressure 132 mm[Hg] RAMANDEEP PROTER [facility] 07-21-2023 10:06-0500 Body height 175.26 cm MD Nancy Grace Work Phone: [facility] 07-21-2023 10:06-0500 Body weight 107.04 kg MD Nancy Grace Work Phone: [facility] 07-18-2023 06:45-0500 Body height 175.26 cm MD Nancy Grace Work Phone: [facility] 07-18-2023 06:45-0500 Body weight 107.04 kg MD Nancy Grace Work Phone: [facility] 07-15-2023 13:58-0500 Diastolic blood pressure 88 mm[Hg] Troy Coulter [facility] 07-15-2023 13:58-0500 Heart rate 99 /min Troy Coulter [facility] 07-15-2023 13:58-0500 SaO2% (BldA) [Mass fraction] 98 % Troy Coulter [facility] 07-15-2023 13:58-0500 Systolic blood pressure 142 mm[Hg] Troy Coulter [facility] 05-16-2023 07:57-0500 Diastolic blood pressure 90 mm[Hg] Nancy Grace [facility] 05-16-2023 07:57-0500 Mean blood pressure 111 mm[Hg] Nancyhalima Grace [facility] 05-16-2023 07:57-0500 Systolic blood pressure 152 mm[Hg] Nancy Grace [facility] Encounters Encounter Date Encounter Type Care Provider Facility Start: 07-09-2025 ambulatory Nancy Grace Facility :[facility] Start: 01-07-2025 ambulatory Nancy Grace Facility :[facility] [place] Start: 10-08-2024 ambulatory Nancy Grace Facility :[facility] Start: 09-03-2024 ambulatory RAMANDEEP Uriostegui ty:[facility] Start: 08-22-2024 End: 08-23-2024 Lab Drop off Nancy Grace [facility] Start: 08-22-2024 End: 08-22-2024 ambulatory Nancy Grace Facility:[facility] Start: 08-21-2024 End: 08-21-2024 ambulatory Estefania Reddy Facility:[facility] [place] Start: 08-17-2024 End: 08-17-2024 Lab Drop off aNncy Grace [facility] Start: 08-17-2024 End: 08-17-2024 ambulatory MD Nancy Grcae Facility:[facility] Start: 08-14-2024 End: 08-14-2024 ambulatory CHLOE HAWTHORNE [facility] Start: 08-14-2024 Encounter for other preprocedural examination CHLOE HAWTHORNE [facility] Start: 08-14-2024 End: 08-14-2024 Patient encounter procedure Chloe WORLEY Work Phone: [facility] Comment on above: Preop examination Start: 08-14-2024 End: 08-14-2024 Preprocedural examination done Chloegodfrey Hawthorne PA Work Phone: [facility] Start: 08-14-2024 End: 08-14-2024 Bamboo flowsheet Chloe Bird Christoph PA Work Phone: [facility] Start: 08-14-2024 End: 08-14-2024 Bamboo flowsheet Chloe Pelon Hawthorne PA Work Phone: [facility] Start: 08-14-2024 End: 08-14-2024 External Result Encounter Chloe Pelon Hawthorne PA Work Phone: [facility] Unsolicited Start: 08-14-2024 End: 08-14-2024 ambulatory CHLOE HAWTHORNE Not Available Start: 08-09-2024 End: 08-09-2024 Orders Only Chloe Hawthorne PA Work Phone: [facility] Comment on above: Encounter for other preprocedural examination Start: 08-09-2024 End: 08-09-2024 Patient encounter status Chloe Pelon Hawthorne PA Work Phone: [facility] [email or web address] [facility] Start: 07-24-2024 End: 07-24-2024 ambulatory Estefania X Orzech Facility:[facility] Start: 07-24-2024 End: 07-24-2024 Patient encounter procedure Estefania X Orzech [facility] Start: 07-18-2024 End: 07-18-2024 Bamboo flowspoonam Dawkins Stepanic DO Work Phone: [facility] Start: 07-18-2024 End: 07-18-2024 Bamboeric Dawkins Stepanic DO Work Phone: [facility] Start: 07-18-2024 End: 07-18-2024 Office outpatient visit 25 minutes Jr. Lauren Dawkins Stepanic DO Work Phone: [facility] Comment on above: Carpal tunnel syndro me of right wrist (Primary Dx); Pain of right hand Start: 07-18-2024 End: 07-18-2024 ambulatory LAUREN LECHUGA Not Available Start: 07-16-2024 End: 07-16-2024 Lab Drop off Nancy Grace [facility] Start: 07-16-2024 End: 07-16-2024 ambulatory Nancy Grace Facility:[facility] Start: 07-09-2024 End: 07-09-2024 Lab Drop off Nancy Grace [facility] Start: 07-09-2024 End: 07-09-2024 ambulatory Nancy Grace Facility:[facility] Start: 05-22-2024 End: 05-22-2024 Bamboo flowsheet Carlos Howe DO Work Phone: [facility] Start: 05-22-2024 End: 05-22-2024 Bamboo flowsheet Christopher Shyam DO Work Phone: [facility] Start: 05-22-2024 End: 05-22-2024 Patient encounter procedure Christopher Shyam DO Work Phone: [facility] Comment on above: Carpal tunnel syndro me on both sides (Primary Dx); Polyneuropathy Start: 05-22-2024 End: 05-22-2024 ambulatory CARLOS HOWE Not Available Start: 05-18-2024 End: 05-18-2024 ambulatory CHACORTA KEARNS Facility:[facility] Start: 02-22-2024 End: 02-22-2024 ambulatory Ramos Akkina Facility:[facility] Start: 02-22-2024 End: 02-22-2024 Patient encounter procedure Ramos Akkina [facility] Start: 01-30-2024 End: 01-30-2024 Lab Drop off Nancy Grace [facility] Start: 01-30-2024 End: 01-30-2024 ambulatory Nancy Grace Facility:[facility] Start: 01-13-2024 End: 01-13-2024 ambulatory XXXX NONE Facility:[facility] Start: 01-13-2024 End: 01-13-2024 Patient encounter procedure Javier Goins [facility] Start: 01-11-2024 End: 01-11-2024 Lab Drop off Nancy Grace [facility] Start: 01-11-2024 End: 01-11-2024 ambulatory Nancy Grace Facility:[facility] Start: 01-10-2024 End: 01-10-2024 ambulatory Bryant TAO Facility: [place] Start: 01-10-2024 End: 01-10-2024 Patient encounter procedure Bryant TAO [facility] [place] Start: 01-05-2024 End: 01-05-2024 ambulatory MD Nancy Grace Facility:[facility] [place] Start: 01-02-2024 End: 02-02-2024 ambulatory Nancy Grace Facility:[id number] Start: 12-29-2023 End: 12-30-2023 Evaluation and management of inpatient Ramos Akkina Facility:[facility] Start: 12-29-2023 Emergency department patient visit Ronny Cartagena Facility:[facility] Start: 12-29-2023 End: 12-30-2023 Evaluation and management of inpatient Artemio Olivares [facility] Start: 12-27-2023 End: 12-27-2023 Lab Drop off Nancy Grace [facility] Start: 12-27-2023 End: 12-27-2023 ambulatory Nancy Grace Facility:[facility] [place] Start: 12-22-2023 End: 12-22-2023 Lab Drop off MARINO KEARNS [facility] Start: 12-22-2023 End: 12-22-2023 ambulatory MARINO KEARNS Facility:[facility] Start: 11-28-2023 End: 11-28-2023 ambulatory Bryant TAO Facility:[facility] Start: 11-28-2023 End: 11-28-2023 Patient encounter procedure Bryant TAO [facility] Start: 10-19-2023 End: 10-19-2023 ambulatory Jacinto Ramirez Facility:[facility] Start: 10-19-2023 End: 10-19-2023 Patient encounter procedure Jacinto Ramirez [facility] Start: 09-22-2023 End: 09-22-2023 ambulatory Bryant TAO Facility: [place] Start: 09-22-2023 End: 09-22-2023 Patient encounter procedure Bryant TAO [facility] Start: 09-09-2023 End: 09-09-2023 ambulatory Nancy Grace Facility:[facility] Start: 09-09-2023 End: 09-09-2023 Admission to same day surgery center MD Nancy Grace Work Phone: [facility] [place] Start: 09-09-2023 End: 09-09-2023 ambulatory MD Nancy Grace Work Phone: [facility] Work Phone: Start: 09-09-2023 End: 09-09-2023 ambulatory Bryant TAO Facility:[id number] Start: 09-01-2023 End: 09-01-2023 Admission to same day surgery center Bryant TAO [facility] Start: 09-01-2023 End: 09-01-2023 ambulatory Bryant TAO Facility:[facility] Start: 08-19-2023 End: 08-19-2023 ambulatory XXXX NONE Facility:[facility] Start: 08-19-2023 End: 08-19-2023 Patient encounter procedure Troy Coulter [facility] Start: 08-15-2023 End: 08-15-2023 Lab Drop off Nancy Grace [facility] Start: 08-15-2023 End: 08-15-2023 ambulatory Nancy Grace Facility:[facility] Start: 08-11-2023 End: 08-11-2023 Patient encounter procedure Bryant TAO [facility] Start: 08-05-2023 End: 08-05-2023 Patient encounter procedure Troy Coulter [facility] Start: 08-02-2023 End: 08-02-2023 Patient encounter procedure Nancy Grace [facility] Start: 07-27-2023 End: 07-27-2023 Patient encounter procedure RAMANDEEP PORTER [facility] [place] Start: 07-21-2023 End: 07-21-2023 ambulatory Ramandeep Porter Facility:[facility] Start: 07-21-2023 End: 07-21-2023 ambulatory MD Nancy Grace Work Phone: [facility] Work Phone: Start: 07-21-2023 End: 07-21-2023 Patient encounter procedure MD Nancy Grace Work Phone: [facility] [place] Work Phone: Start: 07-18-2023 End: 07-18-2023 ambulatory MD Nancy Grace Work Phone: [facility] Work Phone: Start: 07-18-2023 End: 07-18-2023 Patient encounter procedure MD Nancy Grace Work Phone: [facility] [place] Work Phone: Start: 07-15-2023 End: 07-15-2023 Patient encounter procedure Troy Coulter [facility] Start: 06-28-2023 End: 06-28-2023 Lab Drop off Nancy Grace [facility] Start: 06-23-2023 End: 06-23-2023 Patient encounter procedure Manolo ALLEN [facility] Start: 06-22-2023 End: 06-22-2023 Patient encounter procedure RAMANDEEP PORTER [facility] Start: 06-21-2023 End: 06-21-2023 Patient encounter procedure RAMANDEEP PORTER [facility] Start: 06-13-2023 End: 06-13-2023 Lab Drop off Nancy Grace [facility] Start: 05-27-2023 End: 05-27-2023 Lab Drop off Christy L Ese [facility] Start: 05-26-2023 End: 05-26-2023 Lab Drop off Nancy Grace [facility] Start: 05-18-2023 End: 06-10-2023 Pre-admission assessment Nancy Grace [facility] Start: 05-16-2023 End: 05-16-2023 Lab Drop off Nancy Grace [facility] Start: 04-04-2023 End: 04-04-2023 Lab Drop off Christy L Ese [facility] Start: 04-04-2023 End: 04-04-2023 Lab Drop off Christy L Ese [facility] Start: 01-20-2023 End: 01-20-2023 Lab Drop off Nancy Grace [facility] Start: 07-13-2022 End: 07-14-[address] TYRESE MCGRATH Facility:[facility] Procedures Date Procedure Procedure Detail Performing Clinician Start: 08-14-2024 Basic metabolic pane l calcium total Chloe WORLEY Work Phone: Start: 05-22-2024 End: 05-22-2024 Needle emg ea extremty w/paraspinl area complete Carlos Howe DO Work Phone: Start: 09-09-2023 OR (TRUS) Prostate B iopsy w/Ultrasound (Not Applicable) MD Nancy Grace Work Phone: Start: 07-21-2023 MR prostate wo/w con MD Nancy Grace Work Phone: Start: 07-13-[address] TYRESE GROVES Comment on above: Performed By: #### P SAD #### [facility] [address] [place] [address] Dr. Pilo Jansen Arthroscopy Nancy Grace Comment on above: right Arthroscopy Bryant TAO Comment on above: right back surgery 2 Nancy Grace Comment on above: lower back Colonoscopy Javier Salehn Comment on above: years ago-- 1989' Decompression of med valdo nerve Nancy Grace Decompression of med valdo nerve Bryant TAO hand and elbow surgery 3 Marcin Grace Comment on above: left hand and elbow surge ry LEFT 3 Braynt TAO Comment on above: left hand and elbow surge ry LEFT 4 Javier Theresenus Comment on above: left Hand tendon repaired Nancy Grace Comment on above: left thumb tendon Hand tendon repaired Bryant TAO Comment on above: left thumb tendon Spinal arthrodesis RAMANDEEPRUCHI JUNIORRY Spinal arthrodesis Bryant JOHNSON Plan of Treatment Date Care Activity Detail Author Start: 09-11-2024 End: 09-11-2024 Patient encounter procedure 09/11/2024 9:15 AM EDT Office Visit [facility] [address] [place] [id number] Chloe Hawthorne, PA [address] [address] [facility] Start: 08-14-2024 End: 08-14-2024 Patient encounter procedure [facility] Comment on above: Preop examination Start: 08-09-2024 End: 08-09-2025 Basic metabolic 1998 panel - Serum or Plasma Basic metabolic panel Lab Routine Preop examination Expected: 08/09/2024 (Approximate), Expires: 08/09/2025 [facility] Work Phone: Comment on above: Expected: 08/09/2024 (Approximate), Expires: 08/09/2025 Start: 08-09-2024 End: 08-09-2025 Basic metabolic 2000 panel - Serum or Plasma Basic Metabolic Panel Lab Routine Encounter for other preprocedural examination Expected: 08/09/2024, Expires: 08/09/2025 [facility] Work Phone: Comment on above: Expected: 08/09/2024 , Expires: 08/09/2025 Start: 07-18-2024 End: 07-18-2024 Patient encounter procedure 07/18/2024 8:30 AM EST Office Visit [facility] [address] [facility] [address] [place] [address] Jr. Lauren Dillon, DO 112 [facility] [address] [place] [address] Arrived [facility] Comment on above: Arrived Start: 05-22-2024 End: 05-22-2024 Patient encounter procedure 05/22/2024 8:30 AM EST Procedure Visit [facility] [address] [place] [id number] Carlos oHwe, [address] [place] [address] Arrived [facility] Comment on above: Arrived Start: 02-14-2024 Screening for malign ant neoplasm of colon [facility] Start: 02-05-2024 Influenza vaccination Influenza Vacc ine [facility] Start: 09-09-2023 End: 09-09-2023 [facility] Start: 03-09-2021 Pneumococcal Vaccine : 65+ Years (2 of 2 - PPSV23 or PCV20) Pneumococcal Vaccine: 65+ Years (2 of 2 - PPSV23 or PCV20) [facility] Start: 2019 Fall Risk Screening Fall Risk Screen ing [facility] Start: 2004 Administration of varicella zoster vaccine Zoster (Shingles) Vaccine (1 of 2) [facility] Start: 1973 DTaP,Tdap and Td Vaccines (1 - Tdap) DTaP,Tdap and Td Vaccines (1 - Tdap) [facility] Start: 1972 Adult BMI Screening Adult BMI Screen ing [facility] Start: 1966 Depression Screening Depression Scre ening [facility] Start: 1966 Tobacco Screening Tobacco Screening [facility] Start: 1954 Screening for malign ant neoplasm of colon [facility] Healthcare Patient referral [facility] Work Phone: Immunizations Immunization Date Immunization Notes Care Provider [facility] 03-20-2024 influenza virus vaccine, unspecified formulation Nancy Grace [facility] 03-20-2024 SARS-CoV-2 mRNA (tozinameran 5y-11y) vaccine Nancy Grace [facility] Comment on above: Result Comment: pfiz er 03-16-2023 influenza virus vaccine, unspecified formulation Nancy Grace [facility] 04-05-2022 influenza virus vaccine, unspecified formulation Nancy Grace [facility] 04-05-2022 SARS-CoV-2 (COVID-19 ) [id number] Nancy Grace [facility] 03-01-2021 influenza virus vaccine, unspecified formulation Nancy Grace [facility] 03-01-2021 SARS-CoV-2 (COVID-19 ) mRNA BNT-162b2 kristy Grace [facility] Comment on above: Result Comment: 2022: [id number] 08-08-2020 SARS-CoV-2 (COVID-19 ) mRNA BNT-162b2 kristy Grace [facility] 07-18-2020 SARS-CoV-2 (COVID-19 ) mRNA BNT-162b2 valori Grace [facility] 03-09-2020 influenza virus vaccine, unspecified formulation Nancy Grace [facility] 03-09-2020 pneumococcal conjuga te vaccine, 13 valent Nancy Grace [facility] NEGATED: Highlighted row has not occurred!02-14-2023 influenza virus vaccine, unspecified formulation Christy Mulligan [facility] Payers Date Payer Category Payer Unknown [id number] 2023 Self-pay [id number] 2022 Private Health Insurance [employer] [id number] 2018 Medicare .[id number]. [id number]. [id number] 2018 Medicare HMO [employer] Nicole PARK [id number]. [id number] 1959 Medicare [id number] 1959 Unknown [id number] 1954 Unknown [id number] 2.16.840.1.630717.3.579.2. 593 1954 Unknown [id number] 2.16.840.1.172668.3.579.2 1954 Unknown [id number] 2.16.840.1.649815.3.579.2. 72 1954 Unknown [id number] 2.16.840.1.535615.3.579.2 72 1954 Unknown [id number] 2.16.840.1.295016.3.579.2. 72 1954 Unknown [id number] 2.16.840.1.366889.3.579.2. 72 1954 Unknown [id number] 2.16.840.1.672268.3.579.2. 72 1954 Unknown [id number] 2.16.840.1.040856.3.579.2. 72 1954 Unknown [id number] 2.16.840.1.262155.3.579.2. 72 1954 Unknown [id number] 2.16.840.1.709089.3.579.2. 1954 Unknown [id number] 2.16.840.1.917319.3.579.2 1954 Unknown [id number] 2.16.840.1.325786.3.579.2 1954 Unknown [id number] 2.16.840.1.368142.3.579.2 1954 Unknown [id number] 2.16.840.1.561499.3.579.2 1954 Unknown [id number] 2.16.840.1.054182.3.579.2 1954 Unknown [id number] 2.16.840.1.886071.3.579.2 1954 Unknown [id number] 2.16.840.1.974516.3.579.2 1954 Unknown [id number] 2.16.840.1.518827.3.579.2 1954 Unknown [id number] 2.16.840.1.972305.3.579.2 1954 Unknown [id number] 2.16.840.1.785066.3.579.2 1954 Unknown [id number] 2.16.840.1.246420.3.579.2 1954 Unknown [id number] 2.16.840.1.109228.3.579.2 1954 Unknown [id number] 2.16.840.1.945927.3.579.2 1954 Unknown [id number] 2.16.840.1.568994.3.579.2 1954 Unknown [id number] 2.16.840.1.860423.3.579.2 1954 Unknown [id number] 2.16.840.1.429110.3.579.2. 72 1954 Unknown [id number] 2.16.840.1.890750.3.579.2. 72 1954 Unknown [id number] 2.16.840.1.674439.3.579.2. 1954 Unknown [id number] 2.16.840.1.931022.3.579.2. 72 1954 Unknown [id number] 2.16.840.1.903759.3.579.2. 1259 1954 Unknown [id number] 2.16.840.1.697212.3.579.2. 1259 1954 Unknown [id number] 2.16.840.1.789294.3.579.2. 1259 1954 Unknown [id number] 2.16.840.1.844903.3.579.2. 1286 1954 Unknown [id number] 2.16.840.1.391076.3.579.2. 1954 Unknown [id number] 2.16.840.1.003778.3.579.2. 1954 Unknown [id number] 2.16.840.1.799189.3.579.2. 1954 Unknown [id number] 2.16.840.1.730162.3.579.2. 1954 Unknown [id number] 2.16.840.1.278701.3.579.2. 1954 Unknown [id number] 2.16.840.1.889798.3.579.2. 1954 Unknown [id number] 2.16.840.1.658251.3.579.2. 1954 Unknown [id number] 2.16.840.1.940645.3.579.2. 727 1954 Unknown [id number] 2.16.840.1.845976.3.579.2. 727 1954 Unknown [id number] 2.16.840.1.023094.3.579.2. 727 1954 Unknown [id number] 2.16.840.1.554388.3.579.2. 727 1954 Unknown [id number] 2.16.840.1.462138.3.579.2. 727 Unknown Regular Insurance [id number] Unknown [id number] 2.16.840.1.897169.3.579.2. 531 Unknown [id number] 2.16.840.1.278637.3.579.2. 531 Social History Date Type Detail Facility Start: 01-20-2023 End: 08-21-2024 Tobacco smoking status Ex-smoker (finding) [facility] Comment on above: former smoker, quit 2006 uses chewing tobacco former smoker. stopp ed at age 50. Tobacco smoking status Smokeless tobacco user within last 30 days [facility] Comment on above: former smoker, quit 2006 uses chewing tobacco former smoker. stopp ed at age 50. Start: 11-15-2018 End: 08-14-2024 Sex Assigned At Male [facility] Start: 1955 Sex Assigned At Male [facility] consumption unknown [facility] Start: 1955 Sex assigned at Not on file [facility] Start: 11-15-2018 End: 08-14-2024 History of Social function [facility] Start: 06-28-2012 End: 01-09-2015 Sex Male (finding) [facility] History of tobacco use Current smoker [facility] History of tobacco use Cigarette Smoker [facility] Start: 08-14-2024 Tobacco use and exposure Smokeless tobacco non-user [facility] Start: 08-14-2024 Alcoholic beverage intake Current drinker of alcohol (finding) [facility] Start: 08-14-2024 Alcohol Comment 2 BEERS/WK [facility] Sexual Orientation [facility] Medical Equipment Procedure Code Equipment Code Equipment Origin al Text Equipment Identifier Dates [facility] DME Prescription, See Instructions, 100 strip(s), 3, One touch ultra 2 test strips Use to tests sugars once a day Dx E11.9, [facility], Supply, 174.5, cm, 05/26/23 9:14:00 EST, Height/Length Dosing, 109.1, kg, 05/26/23 9:14:00 EST, Weight Dosing Start: 05-26-2023 [facility] Prescription, See Instructions, 100 lancet(s), 3, Soft click lancets Use to test blood sugars once a day Dx E11.9, [facility], Supply, 174.5, cm, 05/26/23 9:14:00 EST, Height/Length Dosing, 109.1, kg, 05/26/23 9:14:00 EST, Weight Dosing Start: 05-26-2023 [facility] DME Prescription, See Instructions, 100 strip(s), 3, One touch ultra 2 test strips Use to tests sugars once a day Dx E11.9, [facility], Supply, 174.5, cm, 05/26/23 9:14:00 EST, Height/Length Dosing, 109.1, kg, 05/26/23 9:14:00 EST, Weight Dosing Start: 05-26-2023 [facility] DME Prescription, See Instructions, 100 lancet(s), 3, Soft click lancets Use to test blood sugars once a day Dx E11.9, [facility], Supply, 174.5, cm, 05/26/23 9:14:00 EST, Height/Length Dosing, 109.1, kg, 05/26/23 9:14:00 EST, Weight Dosing Start: 05-26-2023 [facility] DME Prescription, See Instructions, 100 strip(s), 3, One touch ultra 2 test strips Use to tests sugars once a day Dx E11.9, [facility], Supply, 174.5, cm, 05/26/23 9:14:00 EST, Height/Length Dosing, 109.1, kg, 05/26/23 9:14:00 EST, Weight Dosing Start: 05-26-2023 [facility] DME Prescription, See Instructions, 100 lancet(s), 3, Soft click lancets Use to test blood sugars once a day Dx E11.9, [facility], Supply, 174.5, cm, 05/26/23 9:14:00 EST, Height/Length Dosing, 109.1, kg, 05/26/23 9:14:00 EST, Weight Dosing Start: 05-26-2023 [facility] DME Prescription, See Instructions, 100 strip(s), 3, One touch ultra 2 test strips Use to tests sugars once a day Dx E11.9, [facility], Supply, 174.5, cm, 05/26/23 9:14:00 EST, Height/Length Dosing, 109.1, kg, 05/26/23 9:14:00 EST, Weight Dosing Start: 05-26-2023 [facility] DME Prescription, See Instructions, 100 lancet(s), 3, Soft click lancets Use to test blood sugars once a day Dx E11.9, [facility], Supply, 174.5, cm, 05/26/23 9:14:00 EST, Height/Length Dosing, 109.1, kg, 05/26/23 9:14:00 EST, Weight Dosing Start: 05-26-2023 [facility] DME Prescription, See Instructions, 100 strip(s), 3, One touch ultra 2 test strips Use to tests sugars once a day Dx E11.9, [facility], Supply, 174.5, cm, 05/26/23 9:14:00 EST, Height/Length Dosing, 109.1, kg, 05/26/23 9:14:00 EST, Weight Dosing Start: 05-26-2023 [facility] DME Prescription, See Instructions, 100 lancet(s), 3, Soft click lancets Use to test blood sugars once a day Dx E11.9, [facility], Supply, 174.5, cm, 05/26/23 9:14:00 EST, Height/Length Dosing, 109.1, kg, 05/26/23 9:14:00 EST, Weight Dosing Start: 05-26-2023 [facility] DME Prescription, See Instructions, 100 strip(s), 3, One touch ultra 2 test strips Use to tests sugars once a day Dx E11.9, [facility], Supply, 174.5, cm, 05/26/23 9:14:00 EST, Height/Length Dosing, 109.1, kg, 05/26/23 9:14:00 EST, Weight Dosing Start: 05-26-2023 [facility] DME Prescription, See Instructions, 100 lancet(s), 3, Soft click lancets Use to test blood sugars once a day Dx E11.9, [facility], Supply, 174.5, cm, 05/26/23 9:14:00 EST, Height/Length Dosing, 109.1, kg, 05/26/23 9:14:00 EST, Weight Dosing Start: 05-26-2023 [facility] DME Prescription, See Instructions, 100 strip(s), 3, One touch ultra 2 test strips Use to tests sugars once a day Dx E11.9, [facility], Supply, 174.5, cm, 05/26/23 9:14:00 EST, Height/Length Dosing, 109.1, kg, 05/26/23 9:14:00 EST, Weight Dosing Start: 05-26-2023 [facility] DME Prescription, See Instructions, 100 lancet(s), 3, Soft click lancets Use to test blood sugars once a day Dx E11.9, [facility], Supply, 174.5, cm, 05/26/23 9:14:00 EST, Height/Length Dosing, 109.1, kg, 05/26/23 9:14:00 EST, Weight Dosing Start: 05-26-2023 [facility] DME Prescription, See Instructions, 100 strip(s), 3, One touch ultra 2 test strips Use to tests sugars once a day Dx E11.9, [facility], Supply, 174.5, cm, 05/26/23 9:14:00 EST, Height/Length Dosing, 109.1, kg, 05/26/23 9:14:00 EST, Weight Dosing Start: 05-26-2023 [facility] DME Prescription, See Instructions, 100 lancet(s), 3, Soft click lancets Use to test blood sugars once a day Dx E11.9, [facility], Supply, 174.5, cm, 05/26/23 9:14:00 EST, Height/Length Dosing, 109.1, kg, 05/26/23 9:14:00 EST, Weight Dosing Start: 05-26-2023 [facility] DME Prescription, See Instructions, 100 strip(s), 3, One touch ultra 2 test strips Use to tests sugars once a day Dx E11.9, [facility], Supply, 174.5, cm, 05/26/23 9:14:00 EST, Height/Length Dosing, 109.1, kg, 05/26/23 9:14:00 EST, Weight Dosing Start: 05-26-2023 [facility] DME Prescription, See Instructions, 100 lancet(s), 3, [...] 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 rt: 05-18-2017 [place]ula Three Lev el Deformity FDA Start: 05-18-2017 [...] tests sugars once a day Dx E11.9, [facility], Supply, 174.5, cm, 05/26/23 9:14:00 EST, Height/Length Dosing, 109.1, kg, 05/26/23 9:14:00 EST, Weight Dosing Start: 05-26-2023 [facility] DME Prescription, See Instructions, 100 lancet(s), 3, Soft click lancets Use to test blood sugars once a day Dx E11.9, [facility], Supply, 174.5, cm, 05/26/23 9:14:00 EST, Height/Length Dosing, 109.1, kg, 05/26/23 9:14:00 EST, Weight Dosing Start: 05-26-2023 [facility] DME Prescription, See Instructions, 100 strip(s), 3, One touch ultra 2 test strips Use to tests sugars once a day Dx E11.9, [facility], Supply, 174.5, cm, 05/26/23 9:14:00 EST, Height/Length Dosing, 109.1, kg, 05/26/23 9:14:00 EST, Weight Dosing Start: 05-26-2023 [facility] DME Prescription, See Instructions, 100 lancet(s), 3, Soft click lancets Use to test blood sugars once a day Dx E11.9, [facility], Supply, 174.5, cm, 05/26/23 9:14:00 EST, Height/Length Dosing, 109.1, kg, 05/26/23 9:14:00 EST, Weight Dosing Start: 05-26-2023 [facility] DME Prescription, See Instructions, 100 strip(s), 3, One touch ultra 2 test strips Use to tests sugars once a day Dx E11.9, [facility], Supply, 174.5, cm, 05/26/23 9:14:00 EST, Height/Length Dosing, 109.1, kg, 05/26/23 9:14:00 EST, Weight Dosing Start: 05-26-2023 [facility] DME Prescription, See Instructions, 100 lancet(s), 3, Soft click lancets Use to test blood sugars once a day Dx E11.9, [facility], Supply, 174.5, cm, 05/26/23 9:14:00 EST, Height/Length Dosing, 109.1, kg, 05/26/23 9:14:00 EST, Weight Dosing Start: 05-26-2023 [facility] DME Prescription, See Instructions, 100 strip(s), 3, One touch ultra 2 test strips Use to tests sugars once a day Dx E11.9, [facility], Supply, 174.5, cm, 05/26/23 9:14:00 EST, Height/Length Dosing, 109.1, kg, 05/26/23 9:14:00 EST, Weight Dosing Start: 05-26-2023 [facility] DME Prescription, See Instructions, 100 lancet(s), 3, Soft click lancets Use to test blood sugars once a day Dx E11.9, [facility], Supply, 174.5, cm, 05/26/23 9:14:00 EST, Height/Length Dosing, 109.1, kg, 05/26/23 9:14:00 EST, Weight Dosing Start: 05-26-2023 [facility] DME Prescription, See Instructions, 100 strip(s), 3, One touch ultra 2 test strips Use to tests sugars once a day Dx E11.9, [facility], Supply, 174.5, cm, 05/26/23 9:14:00 EST, Height/Length Dosing, 109.1, kg, 05/26/23 9:14:00 EST, Weight Dosing Start: 05-26-2023 [facility] DME Prescription, See Instructions, 100 lancet(s), 3, Soft click lancets Use to test blood sugars once a day Dx E11.9, [facility], Supply, 174.5, cm, 05/26/23 9:14:00 EST, Height/Length Dosing, 109.1, kg, 05/26/23 9:14:00 EST, Weight Dosing Start: 05-26-2023 [facility] DME Prescription, See Instructions, 100 strip(s), 3, One touch ultra 2 test strips Use to tests sugars once a day Dx E11.9, [facility], Supply, 174.5, cm, 05/26/23 9:14:00 EST, Height/Length Dosing, 109.1, kg, 05/26/23 9:14:00 EST, Weight Dosing Start: 05-26-2023 [facility] DME Prescription, See Instructions, 100 lancet(s), 3, Soft click lancets Use to test blood sugars once a day Dx E11.9, [facility], Supply, 174.5, cm, 05/26/23 9:14:00 EST, Height/Length Dosing, 109.1, kg, 05/26/23 9:14:00 EST, Weight Dosing Start: 05-26-2023 [facility] DME Prescription, See Instructions, 100 strip(s), 3, One touch ultra 2 test strips Use to tests sugars once a day Dx E11.9, [facility], Supply, 174.5, cm, 05/26/23 9:14:00 EST, Height/Length Dosing, 109.1, kg, 05/26/23 9:14:00 EST, Weight Dosing Start: 05-26-2023 [facility] DME Prescription, See Instructions, 100 lancet(s), 3, [...] 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 rt: 05-18-2017 [facility] DME Prescription, See Instructions, 100 strip(s), 3, One touch ultra 2 test strips Use to tests sugars once a day Dx E11.9, [facility], 174.5, cm, 05/26/23 9:14:00 EST, Height/Length Dosing, 109.1, kg, 05/26/23 9:14:00 EST, Weight Dosing Start: 05-26-2023 [facility] DME Prescription, See Instructions, 100 lancet(s), 3, Soft click lancets Use to test blood sugars once a day Dx E11.9, [facility], 174.5, cm, 05/26/23 9:14:00 EST, Height/Length Dosing, 109.1, kg, 05/26/23 9:14:00 EST, Weight Dosing Start: 05-26-2023 [facility] DME Prescription, See Instructions, 100 strip(s), 3, One touch ultra 2 test strips Use to tests sugars once a day Dx E11.9, [facility], 174.5, cm, 05/26/23 9:14:00 EST, Height/Length Dosing, 109.1, kg, 05/26/23 9:14:00 EST, Weight Dosing Start: 05-26-2023 [facility] DME Prescription, See Instructions, 100 lancet(s), 3, Soft click lancets Use to test blood sugars once a day Dx E11.9, [facility], 174.5, cm, 05/26/23 9:14:00 EST, Height/Length Dosing, 109.1, kg, 05/26/23 9:14:00 EST, Weight Dosing Start: 05-26-2023 [facility] DME Prescription, See Instructions, 100 strip(s), 3, One touch ultra 2 test strips Use to tests sugars once a day Dx E11.9, [facility], Supply, 174.5, cm, 05/26/23 9:14:00 EST, Height/Length Dosing, 109.1, kg, 05/26/23 9:14:00 EST, Weight Dosing Start: 05-26-2023 [facility] DME Prescription, See Instructions, 100 lancet(s), 3, Soft click lancets Use to test blood sugars once a day Dx E11.9, [facility], Supply, 174.5, cm, 05/26/23 9:14:00 EST, Height/Length Dosing, 109.1, kg, 05/26/23 9:14:00 EST, Weight Dosing Start: 05-26-2023 [facility] DME Prescription, See Instructions, 100 strip(s), 3, One touch ultra 2 test strips Use to tests sugars once a day Dx E11.9, [facility], Supply, 174.5, cm, 05/26/23 9:14:00 EST, Height/Length Dosing, 109.1, kg, 05/26/23 9:14:00 EST, Weight Dosing Start: 05-26-2023 [facility] DME Prescription, See Instructions, 100 lancet(s), 3, Soft click lancets Use to test blood sugars once a day Dx E11.9, [facility], Supply, 174.5, cm, 05/26/23 9:14:00 EST, Height/Length Dosing, 109.1, kg, 05/26/23 9:14:00 EST, Weight Dosing Start: 05-26-2023 [facility] DME Prescription, See Instructions, 100 strip(s), 3, One touch ultra 2 test strips Use to tests sugars once a day Dx E11.9, [facility], Supply, 174.5, cm, 05/26/23 9:14:00 EST, Height/Length Dosing, 109.1, kg, 05/26/23 9:14:00 EST, Weight Dosing Start: 05-26-2023 [facility] DME Prescription, See Instructions, 100 lancet(s), 3, Soft click lancets Use to test blood sugars once a day Dx E11.9, [facility], Supply, 174.5, cm, 05/26/23 9:14:00 EST, Height/Length Dosing, 109.1, kg, 05/26/23 9:14:00 EST, Weight Dosing Start: 05-26-2023 [facility] DME Prescription, See Instructions, 100 strip(s), 3, One touch ultra 2 test strips Use to tests sugars once a day Dx E11.9, [facility], Supply, 174.5, cm, 05/26/23 9:14:00 EST, Height/Length Dosing, 109.1, kg, 05/26/23 9:14:00 EST, Weight Dosing Start: 05-26-2023 [facility] DME Prescription, See Instructions, 100 lancet(s), 3, Soft click lancets Use to test blood sugars once a day Dx E11.9, [facility], Supply, 174.5, cm, 05/26/23 9:14:00 EST, Height/Length Dosing, 109.1, kg, 05/26/23 9:14:00 EST, Weight Dosing Start: 05-26-2023 'Number 1' Gluco meter and test strips testing BS twice daily- will bring equipment to [facility]/ to update brand Start: 01-03-2024 'Number 1' Gluco meter and test strips testing BS twice daily- will bring equipment to [facility]/ to update brand Start: 01-03-2024 'Number 1' Gluco meter and test strips testing BS twice daily- will bring equipment to [facility]/ to update brand Start: 01-03-2024 'Number 1' Gluco meter and test strips testing BS twice daily- will bring equipment to [facility]/ to update brand Start: 01-03-2024 'Number 1' Gluco meter and test strips testing BS twice daily- will bring equipment to [facility]/ to update brand Start: 01-03-2024 'Number 1' Gluco meter and test strips testing BS twice daily- will bring equipment to [facility]/ to update brand Start: 01-03-2024 'Number 1' Gluco meter and test strips testing BS twice daily- will bring equipment to [facility] f/u to update brand Start: 01-03-2024 'Number 1' Gluco meter and test strips testing BS twice daily- will bring equipment to [facility] f/u to update brand Start: 01-03-2024 'Number 1' Gluco meter and test strips testing BS twice daily- will bring equipment to [facility] f/u to update brand Start: 01-03-2024 Goals Date Patient Goal Desired Activity /State Functional Status Date Assessment Result Facility 01-13-2024 Functional Status N/A [facility] 01-10-2024 Functional Status N/A [facility] 12-29-2023 Functional Status N/A [facility] 12-29-2023 Functional Status [facility] 11-28-2023 Functional Status N/A [facility] 10-19-2023 Functional Status No [facility] 09-22-2023 Functional Status N/A [facility] 08-19-2023 Functional Status N/A [facility] 08-11-2023 Functional Status No [facility] 07-27-2023 Functional Status N/A [facility] 07-15-2023 Functional Status N/A [facility] 06-21-2023 Functional Status N/A [facility] Clinical Notes 06-13-2019 to 08-21-2024 Chloe Hawthorne, MEIR - 08/14/2024 2:15 PM EDTJr. Lauren Dillon, - 07/18/2024 8:30 AM Wil Wang, ARRT - 05/22/2024 8:30 AM EST Note Date & Type Note Facility 08-21-2024 Note Patient Education Urology Acute Urinary Retention, Male Acute urinary retention [...] causes? This condition may be caused by: ??? Obstruction or narrowing of the tube that drains the bladder (urethra). This may be caused by surgery, problems with nearby organs, or injury to the bladder or urethra. ??? Problems with the nerves in the bladder. ??? Tumors in the area of the pelvis, bladder, or urethra. ??? Certain medicines. ??? Bladder or urinary tract infection. ??? Constipation. What increases the risk? This condition is more likely to develop in older men. As men age, their prostate may become larger and may start to press or squeeze on the bladder or the urethra. Other chronic health conditions can increase the risk of acute urinary retention. These include: ??? Diseases such as multiple sclerosis. ??? Spinal cord injuries. ??? Diabetes. ??? Degenerative cognitive conditions, such as delirium or dementia. ??? Psychological conditions. A man may hold his urine due to trauma or because he does not want to use the bathroom. What are the signs or symptoms? Symptoms of this condition include: ??? Trouble urinating. ??? Pain in the lower abdomen. How is this diagnosed? This condition is diagnosed based on a physical exam and your medical history. You may also have other tests, including: ??? An ultrasound of the bladder or kidneys or both. ??? Blood tests. ??? A urine analysis. ??? Additional tests may be needed, such as a CT scan, MRI, and kidney or bladder function tests. How is this treated? Treatment for this condition may include: ??? Medicines. ??? Placing a thin, sterile tube (catheter) into the bladder to drain urine out of the body. This is called an indwelling urinary catheter. After it is inserted, the catheter is held in place with a small balloon that is filled with sterile water. Urine drains from the catheter into a collection bag outside of the body. ??? Behavioral therapy. ??? Treatment for other conditions. If needed, you may be treated in the hospital for kidney function problems or to manage other complications. Follow these instructions at home: Medicines ??? Take cywf-hbl-bzfkzyx and prescription medicines only as told by your health care provider. Avoid certain medicines, such as decongestants, antihistamines, and some prescription medicines. Do not take any medicine unless your health care provider approves. ??? If you were prescribed an antibiotic medicine, take it as told by your health care provider. Do not stop using the antibiotic even if you start to feel better. General instructions ??? Do not use any products that contain nicotine or tobacco. These products include cigarettes, chewing tobacco, and vaping devices, such as e-cigarettes. If you need help quitting, ask your health care provider. ??? Drink enough fluid to keep your urine pale yellow. ??? If you have an indwelling urinary catheter, follow the instructions from your health care provider. ??? Monitor any changes in your symptoms. Tell your health care provider about any changes. ??? If instructed, monitor your blood pressure at home. Report changes as told by your health care provider. ??? Keep all follow-up visits. This is important. Contact a health care provider if: ??? You have uncomfortable bladder contractions that you cannot control (spasms). ??? You leak urine with the spasms. Get help right away if: ??? You have chills or a fever. ??? You have blood in your urine. ??? You have a catheter and the following happens: ? Your catheter stops draining urine. ? Your catheter falls out. Summary ??? Acute urinary retention is a condition in which a person is unable to pass urine or can only pass a little urine. If left untreated, this condition can result in kidney damage or other serious complications. ??? An enlarged prostate may cause this condition. As men age, their prostate gland may become larger and may press or squeeze on the bladder or the urethra. ??? Treatment for this condition may include medicines and placement of an indwelling urinary catheter. ??? Monitor any changes in your symptoms. Tell your health care provider about any changes. This information is not intended to replace advice given to you by your health care provider. Make sure you discuss any questions you have with your health care provider. Document Revised: 02/11/2021 Document Reviewed: 02/11/2021 [employer] Patient Education ? 2023 [employer]. [facility] 08-14-2024 History of Present illness Narrative Images from the original note were not included. GENERAL HISTORY AND PHYSICAL: NAME: Alicja Reyes : 1955 HISTORY OF PRESENT ILLNESS: Alicja Reyes is an 69 y.o. @ male. Here for surgery instructions H&P RT CTR 08/28 24 @ [facility] PAST MEDICAL HISTORY: Past Medical History: Diagnosis Date Acid reflux Diabetes (CMS/HCC) Hypertension (CMS/HCC) Low magnesium level PAST SURGICAL HISTORY: Past Surgical History: Procedure Laterality Date CARPAL TUNNEL RELEASE Left DR MOROCHO ELBOW SURGERY CUBITAL TUNNEL KNEE SURGERY Right RT KNEE SCOPE- DR SEGURA LUMBAR SPINE SURGERY LUMBAR SURGERY X3 SOCIAL HISTORY: Social History Occupational History Not on file Tobacco Use Smoking status: Former Types: Cigarettes Smokeless tobacco: Never Substance and Sexual Activity Alcohol use: Yes Comment: 2 BEERS/WK Drug use: Not on file Sexual activity: Not on file ALLERGIES: Allergies Allergen Reactions Celecoxib Anxiety and Unknown MEDICATIONS: Current Outpatient Medications Medication Instructions amLODIPine (Norvasc) 5 MG tablet Oral, Daily lisinopril 40 mg, Oral, Daily magnesium oxide (MAG-OX) 400 mg metFORMIN (Glucophage) 500 MG tablet Every 12 hours metoprolol succinate XL (TOPROL-XL) 25 mg, Oral, Daily Naproxen Sodium (ALEVE PO) 220 mg omeprazole (PRILOSEC) 20 mg, Daily tamsulosin (FLOMAX) 0.4 mg REVIEW OF SYSTEMS: Review of Systems Constitutional: Negative for fatigue, fever and unexpected weight change. Eyes: Negative for redness and visual disturbance. Gastrointestinal: Negative for abdominal pain. Denies Indigestion Musculoskeletal: See note: Skin: Negative for color change and rash. Neurological: Negative for light-headedness and numbness. Vitals: Body mass index is 37.36 kg/m . PHYSICAL EXAM: Physical Exam Constitutional: General: He is not in acute distress. Appearance: Normal appearance. HENT: Head: Normocephalic and atraumatic. Right Ear: External ear normal. Left Ear: External ear normal. Nose: Nose normal. No rhinorrhea. Mouth/Throat: Mouth: Mucous membranes are moist. Pharynx: No posterior oropharyngeal erythema. Eyes: Extraocular Movements: Extraocular movements intact. Conjunctiva/sclera: Conjunctivae normal. Cardiovascular: Rate and Rhythm: Normal rate and regular rhythm. Pulses: Normal pulses. Heart sounds: No murmur heard. Pulmonary: Effort: Pulmonary effort is normal. No respiratory distress. Breath sounds: Normal breath sounds. No wheezing or rhonchi. Abdominal: Palpations: Abdomen is soft. Tenderness: There is no abdominal tenderness. Musculoskeletal: Cervical back: Normal range of motion and neck supple. Lymphadenopathy: Cervical: No cervical adenopathy. Skin: General: Skin is warm and dry. Findings: No erythema or rash. Neurological: General: No focal deficit present. Mental Status: He is alert and oriented to person, place, and time. Psychiatric: Mood and Affect: Mood normal. Behavior: Behavior normal. Orders Placed This Encounter Procedures Basic metabolic panel Standing Status: Future Number of Occurrences: 1 Standing Expiration Date: 08/09/2025 Order Specific Question: Print requisition? Answer: No ASSESSMENT: ICD-10-CM 1. Preop examination Z01.818 Basic metabolic panel Basic metabolic panel CANCELED: Basic metabolic panel CANCELED: Basic metabolic panel PLAN: This patient presents for preadmission testing for upcoming surgery. Complete history with medical, surgery, and current allergy and medication list obtained. Consent for surgery signed and witnessed after verbal consent to perform surgery received. All questions answered and proposed surgery scheduled. RT CTR 08/28/24 @ [facility] PAT 08/14/24 @ 2:15- [facility] for [facility] 07-18-[facility]24 History of Present illness Narrative NAME: Alicja Reyes : 1955 HISTORY OF PRESENT ILLNESS: NEW PT Alicja Reyes is an 69 y.o. @ male. (NEW PT) - (R) HAND DISCOMFORT ~5 MONTHS ; S/P B/L UE [facility]G [facility]/22/24 [facility] NO XRAY B/L UE EMG 05/22/24 @[facility] NOTES NUMBNESS IN FINGERS. INTERMITTENT SHARP STABBING PAIN IN ALL FINGERS BUT THUMB. DISCOMFORT ~5 MONTHS (02/2024). DIFFICULTY TAKING PILLS. LIMITED RN INFUSION WITH TIGHT FIST. ADMITS N/T. GOOD ROM IN FINGERS / HAND. PAST MEDICAL HISTORY: No past medical history on file. PAST SURGICAL HISTORY: No past surgical history on file. SOCIAL HISTORY: Social History Occupational History Not on file Tobacco Use Smoking status: Not on file Smokeless tobacco: Not on file Substance and Sexual Activity Alcohol use: Not on file Drug use: Not on file Sexual activity: Not on file ALLERGIES: Not on File HOME MEDICATIONS: No current outpatient medications REVIEW OF SYSTEMS: Review of Systems Vitals: There is no height or weight on file to calculate BMI. Tobacco Use: Not on file (08/09/2017) Alcohol Use: Not on file PHYSICAL EXAM: IMAGING: Procedures He isNo orders of the defined types were placed in this encounter. ASSESSMENT: ICD-10-CM 1. Carpal tunnel syndrome of right wrist G56.01 2. Pain of right hand M79.641 Hand/Wrist Musculoskeletal Exam Inspection Right Erythema: none Ecchymosis: none Edema: none Deformity: mild Inspection additional comments: MILD THENAR ATROPHY Palpation Right Right hand palpation is normal. Wrist tenderness to palpation: carpal canal Palpation additional comments: DENIES PAIN TO PALPATION OF HAND/ WRIST JOINT Range of Motion Right Hand Right hand range of motion is normal. Range of motion additional comments: ABLE TO MAKE FULL FIST Strength Right Hand Right hand strength is normal. Strength additional comments: 5/5 EQUAL RN INFUSION STRENGTH Neurovascular Right Right neurovascular exam is normal. Radial pulse: normal and 2+ Capillary refill: <3 sec Ulnar nerve sensory distribution: normal Median nerve sensory distribution: decreased Superficial radial nerve sensory distribution: normal Special Tests Right Phalen's: positive Tinel's - carpal tunnel: positive General Constitutional: appears stated age Labored breathing: no Neurological: alert and oriented x3 Skin: intact Lymphadenopathy: none PLAN: Plan discussed with him, symptoms,And EMG. Discussed his restrictions exercise program. We have discussed surgical and nonsurgical treatment options and the risks and benefits associated with both. The patient has requested surgical intervention in the form of a open release of the transverse carpal ligament right wrist and hand. Patient understands treatment. We have discussed both surgical and nonsurgical treatment options with the patient at length and the risks and benefits associated with both. The patient is requesting surgical intervention because they have not responded to outpatient treatment options including but not limited to rest ice, and home exercise program. Pain and decreased range of motion are affecting the patient's ability to sleep and activities of daily living and we have recommended surgical intervention. We have discussed both Surgical and nonsurgical treatment options risks, benefits associated with both. The patient has requested surgical intervention. We'll see him back to surgery for an open release of transverse carpal ligament. Questions answered in laymen terms at the bedside. The diagnosis, home exercise plan and any ongoing restrictions/ recommendations reviewed. If unable to be reached in office, I recommend evaluation at nearest Emergency Room if any symptoms worsened or new symptoms develop for requiring urgent evaluation. documented in this encounter [facility] 07-16-2024 Note Patient Education Nutrition BMI for [...] for Disease Control and Prevention: cdc.gov ??? [place] Heart Association: heart.org ??? National Heart, Lung, and Blood [place]: nhlbi.nih.gov This information is not intended to replace advice given to you by your health care provider. Make sure you discuss any questions you have with your health care provider. Document Revised: 02/10/2023 Document Reviewed: 02/03/2023 Elsevier Patient Education ? 2023 [employer] [facility] 07-09-2024 Note Patient Education Cardiovascular Hypertension, [...] 12 oz bottle (more content not included)... [facility] 05-22-2024 History of Present illness Narrative Images from the original note were not included. Reason for Appointment: EMG Patient: Alicja Reyes : 1955 EMG Computer: [employer] Referring Physician: Marino Kearns CNP EMG: ADELAIDA snowsport instructor: Gee Wang RT(R) Office Location: [place] Reason for EMG: c/o numbness/tingling in fingers on left hand. Hx of left CTR & surgery to left elbow. Hx of DM. Not on blood thinners. Comments: Procedure was explained to the patient who expressed understanding. Patient appeared to have tolerated the test well despite some discomfort due to the nature of the test. documented in this encounter [facility] 05-18-2024 Note Patient Education Neurology Paresthesia Paresthesia [...] liquor (44 mL). General instructions ??? Take [id number] and prescription medicines only as told by [...] provider. Document Revised: 02/01/2022 Document Reviewed: 02/01/2022 [employer] Patient Education ? 2023 [employer]. [facility] 01-30-2024 Note Nurse Consultation N ote [...] virus vaccine, inactivated 04/05/2022 Recorded SARS-CoV-2 (COVID-19) [id number] 04/05/2022 Recorded influenza virus vaccine, inactivated 03/01/2021 Recorded SARS-CoV-2 (COVID-19) mRNA BNT-162b2 vax 03/01/2021 Recorded 2023-01-13: [id number] SARS-CoV-2 (COVID-19) mRNA BNT-162b2 vax 08/08/2020 Recorded SARS-CoV-2 (COVID-19) mRNA BNT-162b2 vax 07/18/2020 Recorded pneumococcal 13-valent vaccine 03/09/2020 Recorded influenza virus vaccine, inactivated 03/09/2020 Recorded [facility] 01-11-2024 Note Nurse Consultation N ote Reason for Visit Here for lab draw and Dr Tao ordered PSA free and total also joni that for him. canceled the urine culture as patient had [facility] yesterday and was told it's fine [...] virus vaccine, inactivated 04/05/2022 Recorded SARS-CoV-2 (COVID-19) [id number].[id number] 04/05/2022 Recorded influenza virus vaccine, inactivated 03/01/2021 Recorded SARS-CoV-2 (COVID-19) mRNA BNT-162b2 vax 03/01/2021 Recorded 2023-01-13: [id number] SARS-CoV-2 (COVID-19) mRNA BNT-162b2 vax 08/08/2020 Recorded SARS-CoV-2 (COVID-19) mRNA BNT-162b2 vax 07/18/2020 Recorded pneumococcal 13-valent vaccine 03/09/2020 Recorded influenza virus vaccine, inactivated 03/09/2020 Recorded [facility] 01-10-2024 Hospital Discharge instructions Patient Education [...] and water are not available, use hand analytics associate. 2.Clean your penis with soap and water. [...] reusable catheter in a small bathroom. Take vdjd-nme-vcsjcgb and prescription medicines only as told by [...] provider. Document Revised: 03/29/2022 Document Reviewed: 03/29/2022 ElseUnderstory Patient Education 2022 Nor1. Follow Up Care 09/22/2023 13:04:49 With:EMMY REYNOLDS, Bryant Vogel, URL Address: [address] [place] [address]- When: Unknown Comments:6 mos [facility] 01-10-2024 Note Patient Education Urology Clean Intermittent [...] and water are not available, use hand analytics associate. 2. Clean your penis with soap and [...] catheter in a small bathroom. ? Take zwbd-dqz-lercbea and prescription medicines onl (more content not included)... [facility] 12-31-2023 Note Discharge Summary Admission and Discharge Information Admit Date/Time:12/29/2023 15:45 Admitting Physician - Artemio Olivares DO Consulting Physician - Ramos Euceda MD Admitting Diagnoses: Discharge Diagnoses 1. Hypomagnesemia, 12/29/2023 [...] -2/2 B12 def -Baseline hgb. level - 13 -Anemia panel -> supplement -Outpt. f/u w/ GI for possible scopes - defer to PCP Hypertensive urgency: -DC HCTZ -Increase lisinopril to 40mg daily -Pt. educated to monitor blood pressure daily and record in a log -Patient threatening to leave AMA, he stated I am not spending 1 more fucking night in this [facility] with the terrible food and lack [...] aware that he needs to call Dr. rGace's office on Tuesday to get his final [...] made to ensure accuracy, however, inadvertently computerized computer discovery teacher mistakes may be present. Significant Findings No qualifying data available. Services Consulted Consult to Nephrology - Ordered -- 12/29/23 15:09:00 EDT, Refractory hypomagnesemia, REQUESTED BY DR. GRACE, Consult and Co-manage Consult to Nephrology - Ordered -- 12/29/23 15:22:00 EDT, recurrent hypomag., renal wasting, Consult and Co-manage Consult to Social Servi (more content not included)... [facility] Comment on above: Result Comment: Elec tronically Signed By: EDDA YING, Dacia\.br\Date and Time Signed: 12/30/23 12:31 EDT\.br\Electronically Co-Signed By: EDDA YIGN, Dacia\.br\Date and Time Co-Signed: 12/30/23 12:32 EDT\.br\Electronically Co-Signed [...] BID, # 360 tab(s), Refills(s) 1, Pharmacy: [facility], 174, cm, 07/26/23 10:21:00 EST, Height/Length Dosing, 104.8, kg, 07/26/23 10:21:00 EST, Weight Dosing [facility] Prescription: [facility] Prescription, See Instructions, 1 kit(s), 0, One Touch Ultra 2 glucose meter kit Use to tests sugars daily E11.9, [facility], 174.5, cm, 05/26/23 9:14:00 EST, Height/Length Dosing, 109.1, kg, 05/26/23 9:14:00... [facility] Prescription: [facility] Prescription, See Instructions, 100 Unspecified/Unknown, 3, Alcohol prep pads Use to test blood sugars daily Dx E11.9, [facility], Supply, 174.5, cm, 05/26/23 9:14:00 EST, Height/Length Dosing, 109.1, kg, 05/26/23 9:1... Misc DME Prescription: Misc DME Prescription, See Instructions, 100 lancet(s), 3, Soft click lancets Use to test blood sugars once a day Dx E11.9, [facility], Supply, 174.5, cm, 05/26/23 9:14:00 EST, Height/Length Dosing, 109.1, kg, 05/26/23 9:14:00... Misc DME Prescription: Misc DME Prescription, See Instructions, 100 strip(s), 3, One touch ultra 2 test strips Use to tests sugars once a day Dx E (more content not included)... [facility] Comment on above: Result Comment: Elec [...] Do not drink alcohol. General instructions Take ztbn-xen-houpoka and prescription medicines only as told by [...] provider. Document Revised: 10/20/2021 Document Reviewed: 10/20/2021 At[employer]izz Patient Education 2022 Nor1. 12/30/2023 12:37:57 Hypomagnesemia Hypomagnesemia Hypomagnesemia is a [...] Do not drink alcohol. General instructions Take lamy-gym-jmzbsvn and prescription medicines only as told by [...] provider. Document Revised: 10/20/2021 Document Reviewed: 10/20/2021 [employer]izz Patient Education 2022 [employer] 12/30/2023 12:30:15 How to Take Your Blood Pressure, Asho-gn-Ccvq How to Take Your Blood Pressure Blood [...] Follow these instructions at home: Medicines Take xbpx-gns-ymzvdlr and prescription medicines only as told by [...] monitor. You can buy one at a [employer] or online. When choosing one: Choose one with an arm cuff. Choose one that wraps around your upper arm. Only one finger should fit between your arm and the cuff. Do not choose one that measures your blood pressure from your wrist or finger. Where to find more information [place] [employer]: www.heart.org Contact a doctor if: [...] provider. Document Revised: 02/04/2022 Document Reviewed: 02/04/2022 [employer] Patient Education 2022 [employer]. 12/30/2023 12:30:15 Form - Blood Pressure [...] provider. Document Revised: 02/04/2022 Document Reviewed: 02/04/2022 Elsevier Patient Education 2022 Elsevier Inc. 12/30/2023 11:53:55 Urinary Tract Infection, Adult, Dppp-wt-Cnzp Urinary Tract Infection, Adult A urinary tract [...] Follow these instructions at home: Medicines Take lxiq-xvm-yesleyc and prescription medicines only as told by [...] provider. Document Revised: 01/02/2021 Document Reviewed: 01/02/2021 [employer] Patient Education 2022 Nor1. 12/30/2023 11:53:55 Hypomagnesemia Hypomagnesemia Hypomagnesemia is a [...] Do not drink alcohol. General instructions Take shmc-mhn-yezndww and prescription medicines only as told by [...] provider. Document Revised: 10/20/2021 Document Reviewed: 10/20/2021 [employer]izz Patient Education 2022 Nor1. Follow Up Care 12/29/2023 13:34:47 With:Ramos Euceda Address: [address] [place] [address]- Business (1) When: Unknown Comments:Call for followup appointment in [place] office With:Nancy Grace Address: [address] [place] [address]- Business (2) When:01/05/2024 07:45:00 [facility] 12-30-2023 Note Interdisciplinary No te - PT Order received, chart reviewed. Attempted PT evaluation at 1141 on 12/30/23. Upon attempt, pt. is speaking with [facility] and threatening to leave AMA. Dacia instructs PT to hold evaluation at this time. Please re-order PT evaluation if deemed necessary in the future. No PT charges. [facility] 12-29-2023 Evaluation + Plan note Extrac [...] deep vein thrombosis (DVT) prophylaxis (Z79.899: Other shelter (current) drug therapy) Orders: magnesium sulfate + [...] (D64.9: Anemia, unspecified) Baseline hgb. level - 1213 -Anemia panel - pending -Avoid heparin products [...] deep vein thrombosis (DVT) prophylaxis (Z79.899: Other shelter (current) drug therapy) -Lovenox Orders: acetaminophen, 650 [...] Cardiac Monitoring CBC w/ Auto Diff Clinical [place] Withdrawal Assessment Clinical [place] Withdrawal Assessment Clinical [place] Withdrawal Assessment Clinical [place] Withdrawal Assessment Communication Order Physician to Nursing Communication Order Physician to Nursing Consult to Nephrology Consult to Laundry Worker Drug Screen Urine Elevate Head of Bed [...] made to ensure accuracy, however, inadvertently computerized computer discovery teacher mistakes may be present. Future Appointments Appointment Date:01/05/2024 07:45:00 AM Scheduled Provider:Nancy Grace MD Location:[facility] Appointment Type: Hospital Follow Up w/TCM Appointment Date:01/10/2024 08:15:00 AM Scheduled Provider:Bryant TAO MD Location:[facility] [place] Appointment Type:URO Office Visit Appointment Date:01/13/2024 09:00:00 AM Scheduled Provider:Javier Goins MD [facility] [place] Appointment Type:Cardiology Follow Up (FT) Appointment Date:07/09/2024 08:00:00 AM Scheduled Provider: Location:[facility] Appointment Type: Medicare Wellness Subsequent Diagnostic Tests Pending * PTH Intact 12/30/23 Future Scheduled Tests Laboratory* U Protein/Creat Ratio 07/14/23 * HgbA1c 07/14/23 * HgbA1c 07/26/23 * Microalbumin Level Urine 07/14/23 * CBC w/ Auto Diff 07/14/23 * Comprehensive Metabolic Panel 07/14/23 * Lipid Panel 07/14/23 [facility] 06-24-2024 Hospital Discharge instructions Patient Education [...] Care 09/27/2023 14:45:03 With:Bryant TAO Address: [address] [place] [phone] Business (1) When: Unknown Comments:As we discussed, [...] are at least emptying the bladder intermittently. [facility]06-24-2024 Note [id number] NoteCystoscopy ? Voiding after the [...] if you have a fever over 100 degrees.[facility] 09-22-2023 Hospital Discharge instructions Patient Education [...] including vitamins, herbs, eye drops, creams, and wice-kif-lpysxjh medicines. Any problems you or family members [...] provider tells you to take them. Taking drqf-god-ldbblah medicines, vitamins, herbs, and supplements. Tests You [...] Follow these instructions at home: Medicines Take ytyq-ati-vnktxfj and prescription medicines only as told by [...] provider. Document Revised: 02/03/2022 Document Reviewed: 01/02/2021 AtBizz Patient Education 2022 Nor1. Follow Up Care 09/06/2023 09:35:10 With:EMMY REYNOLDS, Bryant Vogel, URL Address: [address] [place], [place] [id number]- When: Unknown [facility] [id number] NoteUrology Cystoscopy Cystoscopy is a procedure that [...] including vitamins, herbs, eye drops, creams, and zjms-anv-jljdegj medicines. ? Any problems you or family [...] tells you to take them. ? Taking wzvi-svm-vuxbpln medicines, vitamins, herbs, and supplements. Tests You [...] these instructions at home: Medicines ? Take tpyb-tfh-xduasoj and prescription medicines only as told by [...] or the department th (more content not included)...[facility] 08-17-2023 [id number]02-21-2024 Hospital Discharge instructions Patient Education 07/27/2023 [...] discomfort near your rectum, especially while sitting. [place]-colored urine due to small amounts of blood in your urine. A burning feeling while urinating. Blood in your stool (feces) or bleeding from your rectum. Blood in your semen. Follow these instructions at home: Medicines Take ysih-lhh-bzmrnfv and prescription medicines only as told by [...] provider. Document Revised: 11/16/2021 Document Reviewed: 11/16/2021 AtBizz Patient Education 2022 Nor1. 07/27/2023 11:28:00 Transrectal Ultrasound-Guided Prostate Biopsy Transrectal [...] including vitamins, herbs, eye drops, creams, and dorz-mid-yvqchnl medicines. Any problems you or family members [...] provider tells you to take them. Taking ymxy-oet-lfhlgdf medicines, vitamins, herbs, and supplements. General instructions [...] provider. Document Revised: 11/16/2021 Document Reviewed: 11/16/2021 AtBizz Patient Education 2022 Nor1. Follow Up Care 07/26/2023 12:46:05 With:RAMANDEEP PORTER PA-C, URL Address: [address] [place] [address] When: Unknown [facility] [place] 01-16-2024 Hospital Discharge instructions Patient Education 06/21/2023 [...] including vitamins, herbs, eye drops, creams, and ijmy-hql-nnobedm medicines. Any problems you or family members [...] provider tells you to take them. Taking cyea-gmd-jhlqftr medicines, vitamins, herbs, and supplements. Tests You [...] Follow these instructions at home: Medicines Take pdtu-rne-dgwpinp and prescription medicines only as told by [...] provider. Document Revised: 02/03/2022 Document Reviewed: 01/02/2021 AtBizz Patient Education 2022 Nor1. 06/21/2023 14:21:23 Acute Urinary Retention, Male Acute [...] Follow these instructions at home: Medicines Take pbtm-thj-hwrugcd and prescription medicines only as told by [...] provider. Document Revised: 02/11/2021 Document Reviewed: 02/11/2021 AtBizz Patient Education 2022 Nor1. Follow Up Care 06/21/2023 10:00:59 With:RAMANDEEP PORTER PA-C, URL Address: [address] [place] [phone] When: Unknown Comments:sched cysto and prostate MRI [facility] 03-01-2020 Evaluation + Plan note Future Appointments Appointment Date:08/02/2023 08:00:00 AM Scheduled Provider: Location:.[facility] Appointment Type:CV Echo () Appointment Date:08/05/2023 08:45:00 AM Scheduled Provider: [facility] Type:NM Myocard Spect Multi Rest/Stress-Res Appointment Date:08/05/2023 09:45:00 AM Scheduled Provider: [facility] App[facility] Type:NM Myocard Spect Multi Rest/Stress - R Appointment Date:08/05/2023 10:15:00 AM Scheduled Provider: [facility] App[facility] Type:NM Myocard Spect Multi Rest/Stress-Str Appointment Date:08/05/2023 11:15:00 AM Scheduled Provider: [facility] App[facility] Type:NM Myocar Spect Multi Rest/Stress - St Appointment Date:08/08/2023 02:00:00 PM Scheduled Provider: Location:[facility] Appointment Type:Urology FT Appointment Date:08/08/2023 03:00:00 PM Scheduled Provider: Location:[facility] Appointment Type:Urology FT Appointment Date:08/15/2023 07:00:00 AM Scheduled Provider:Nancy Grace MD Location:[facility] Appointment Type:FM Open Appointment Date:08/19/2023 11:45:00 AM Scheduled Provider:Troy Coulter MD [facility] [place] Appointment Type:Cardiology Follow Up (FT) Appointment Date:07/09/2024 08:00:00 AM Scheduled Provider: Location:[facility] Appointment Type: Medicare Wellness Subsequent Future Scheduled Tests Laboratory* U Protein/Creat Ratio 07/14/23 * HgbA1c 07/14/23 * HgbA1c 07/26/23 * Microalbumin Level Urine 07/14/23 * CBC w/ Auto Diff 07/14/23 * Comprehensive Metabolic Panel 07/14/23 * Lipid Panel 07/14/23 Radiology* NM Myocardial Spect Rest/Stress 1 Day 08/05/23 * Echo Transthoracic Complete 08/02/23 [facility] [place] 01-08-2020 Evaluation + Plan note Future Appointments Appointment Date:06/09/2023 08:00:00 AM Scheduled Provider: [facility] Type:CV Echo (FT) Appointment Date:06/13/2023 08:00:00 AM Scheduled Provider:Nancy [facility] MD [facility]FM Open Appointment Date:07/11/2023 09:00:00 AM Scheduled Provider:Manolo ALLEN MD Location[facility] [place] Appointment Type:URO New Patient Appointment Date:07/27/2023 02:00:00 PM Scheduled Provider: [facility] Type: Medicare Wellness Subsequent Appointment Date:07/27/2023 02:40:00 PM Scheduled Provider:Nancy Grace MD [facility] Type: Open Future Scheduled Tests Radiology* Echo Transthoracic [facility]09[facility]23 [facility] App[facility]ments Appointment Date:07/27/2023 02:00:00 PM Scheduled [facility] Medicare Wellness Subsequent Appointment Date:07/27/2023 02:40:00 PM Scheduled Provider:Nancy Grace MD [facility] Future Appointments Appointment Date:05/16/2023 07:20:00 AM Scheduled Provider:Nancy Grace MD [facility] Type:FM Open Appointment Date:07/27/2023 02:00:00 PM Scheduled Provider: [facility] Type: Medicare Wellness Subsequent Appointment Date:07/27/2023 02:40:00 PM Scheduled Provider:Nancy Grace MD [facility] Future Appointments Appointment Date:05/16/2023 07:20:00 AM Scheduled Provider:Nancy Grace MD [facility] Type:FM Open Appointment Date:07/27/2023 02:00:00 PM Scheduled Provider: [facility] Type: Medicare Wellness Subsequent Appointment Date:07/27/2023 02:40:00 PM Scheduled Provider:Nancy Grace MD [facility]: Open Diagnostic Tests Pending * Urine Culture [facility]04[facility]23 [facility] Future App[facility]ments Appointment Date:07/11/2023 09:00:00 AM Scheduled Provider:Manolo ALLEN MD Location:[facility] Appointment Type:URO New Patient Appointment Date:07/27/2023 02:00:00 PM Scheduled Provider: Location:[facility] Appointment Type: Medicare Wellness Subsequent Appointment Date:07/27/2023 02:40:00 PM Scheduled Provider:Nancy Grace MD Location:[facility] Appointment Type: Open Diagnostic Tests Pending * Urine Culture 05/16/23 Future Scheduled Tests Radiology* Echo Transthoracic Complete [facility]16/23 [facility] Future App[facility]ments Appointment Date:05/27/2023 08:20:00 AM Scheduled Provider: Location:[facility] Appointment Type: Nurse Visit Appointment Date:06/09/2023 08:00:00 AM Scheduled Provider: [facility] Type:CV Echo (FT) Appointment Date:06/13/2023 08:00:00 AM Scheduled Provider:Nancy Grace MD Location:[facility] Appointment Type: Open Appointment Date:07/11/2023 09:00:00 AM Scheduled Provider:Manolo ALLEN MD Location:[facility] Appointment Type:URO New Patient Appointment Date:07/27/2023 02:00:00 PM Scheduled Provider: Location:[facility] Appointment Type:FM Medicare Wellness Subsequent Appointment Date:07/27/2023 02:40:00 PM Scheduled Provider:Nancy Grace MD [facility] Type: Open Diagnostic Tests Pending * Urine Culture 05/26/23 Future Scheduled Tests Laboratory* Basic Metabolic Panel 05/26/23 Radiology* Echo Transthoracic [facility]09[facility]23 [facility] Future App[facility]ments Appointment Date:06/13/2023 08:00:00 AM Scheduled Provider:Nancy Grace MD Location:[facility] Appointment Type: Open Appointment Date:06/29/2023 10:15:00 AM Scheduled Provider:Kristel Tolentino MD Location:[facility] Appointment Type:URO New Patient Appointment Date:07/25/2023 02:00:00 PM Scheduled Provider: Location:[facility] Appointment Type:FM Medicare Wellness Subsequent Appointment Date:07/25/2023 03:00:00 PM Scheduled Provider:Nancy Grace MD Location[facility] Future Appointments Appointment Date:06/29/2023 10:15:00 AM Scheduled Provider:Kristel Tolentino MD Location:[facility] Appointment Type:URO New Patient Appointment Date:07/14/2023 10:00:00 AM Scheduled Provider:Nancy Grace MD Location:[facility] Appointment Type: Open Appointment Date:07/15/2023 02:00:00 PM Scheduled Provider:Troy Coulter MD [facility] Appointment Type:Cardiology New Patient (FT) Appointment Date:07/25/2023 02:00:00 PM Scheduled Provider: Location:[facility] Appointment Type: Medicare Wellness Subsequent Appointment Date:07/25/2023 03:00:00 PM Scheduled Provider:Nancy Grace MD Location:[facility] Future Appointments Appointment Date:06/22/2023 10:30:00 AM Scheduled Provider: Location:[facility] Appointment Type:URO Nurse Visit Appointment Date:06/28/2023 07:45:00 AM Scheduled Provider:Nancy Grace MD Location:[facility] Appointment Type: Hospital Follow Up w/TCM Appointment Date:07/14/2023 10:00:00 AM Scheduled Provider:Nancy Grace MD Location:[facility] Appointment Type: Open Appointment Date:07/15/2023 02:00:00 PM Scheduled Provider:Troy Coulter MD [facility] Appointment Type:Cardiology New Patient (FT) Appointment Date:07/25/2023 02:00:00 PM Scheduled Provider: Location:[facility] Appointment Type: Medicare Wellness Subsequent Appointment Date:07/25/2023 03:00:00 PM Scheduled Provider:Nancy Grace MD Location:[facility] Appointment Type: Open [facility] evaluation + Plan note Future Appointments Appointment Date:06/23/2023 08:00:00 AM Scheduled Provider: Location:[facility] Appointment Type:URO Nurse Visit Appointment Date:06/28/2023 07:45:00 AM Scheduled Provider:Nancy Grace MD Location:[facility] Appointment Type: Hospital Follow Up w/TCM Appointment Date:07/14/2023 10:00:00 AM Scheduled Provider:Nancy Grace MD Location:[facility] Appointment Type:FM Open Appointment Date:07/15/2023 02:00:00 PM Scheduled Provider:Troy Coulter MD [facility] [place] Appointment Type:Cardiology New Patient (FT) Appointment Date:07/25/2023 02:00:00 PM Scheduled Provider: Location:[facility] Appointment Type: Medicare Wellness Subsequent Appointment Date:07/25/2023 03:00:00 PM Scheduled Provider:Nancy Grace MD Location:[facility] Appointment Type: Open [facility] evaluation + Plan note Future Appointments Appointment Date:06/28/2023 07:45:00 AM Scheduled Provider:Nancy Grace MD Location:[facility] Appointment Type: Hospital Follow Up w/TCM Appointment Date:07/14/2023 10:00:00 AM Scheduled Provider:Nancy Grace MD Location:[facility] Appointment Type: Open Appointment Date:07/15/2023 02:00:00 PM Scheduled Provider:Troy Coulter MD [facility] [place] Appointment Type:Cardiology New Patient (FT) Appointment Date:07/25/2023 02:00:00 PM Scheduled Provider: Location:[facility] Appointment Type: Medicare Wellness Subsequent Appointment Date:07/25/2023 03:00:00 PM Scheduled Provider:Nancy Grace MD Location:[facility] Appointment Type: Open [facility] Evaluation + Plan note Future Appointments Appointment Date:07/14/2023 10:00:00 AM Scheduled Provider:Nancy Grace MD Location:[facility] Appointment Type: Open Appointment Date:07/15/2023 02:00:00 PM Scheduled Provider:Troy Coulter MD [facility] [place] Type:Cardiology New Patient (FT) Appointment Date:07/25/2023 02:00:00 PM Scheduled Provider: Location:[facility] Appointment Type: Medicare Wellness Subsequent Appointment Date:07/25/2023 03:00:00 PM Scheduled Provider:Nancy Grace MD Location:[facility] Appointment Type: Open Appointment Date:08/08/2023 02:00:00 PM Scheduled Provider: Location:[facility] Appointment Type:Urology FT Appointment Date:08/08/2023 03:00:00 PM Scheduled Provider: Location:[facility] Appointment Type:[facility] Future Appointments Appointment Date:07/25/2023 02:00:00 PM Scheduled Provider: Location:[facility] Appointment Type: Medicare Wellness Subsequent Appointment Date:07/25/2023 03:00:00 PM Scheduled Provider:Nancy Grace MD Location:[facility] Appointment Type: Open Appointment Date:08/02/2023 08:00:00 AM Scheduled Provider: [facility] Type:CV Echo (FT) Appointment Date:08/08/2023 02:00:00 PM Scheduled Provider: Location:[facility] Appointment Type:Urology FT Appointment Date:08/08/2023 03:00:00 PM Scheduled Provider: Location:[facility] Appointment Type:Urology FT Appointment Date:08/19/2023 11:45:00 AM Scheduled Provider:Troy Coulter MD [facility] Appointment Type:Cardiology Follow Up (FT) Future Scheduled Tests Laboratory* U Protein/Creat Ratio 07/14/23 * HgbA1c 07/14/23 * Microalbumin Level Urine 07/14/23 * CBC w/ Auto Diff 07/14/23 * Comprehensive Metabolic Panel 07/14/23 * Lipid Panel 07/14/23 Radiology* Echo Transthoracic Complete 08/02/23 [facility] Future Appointments Appointment Date:08/05/2023 08:45:00 AM Scheduled Provider: [facility] App[facility] Type:NM Myocard Spect Multi Rest/Stress-Res Appointment Date:08/05/2023 09:45:00 AM Scheduled Provider: [facility] App[facility] Type:NM Myocard Spect Multi Rest/Stress - R Appointment Date:08/05/2023 10:15:00 AM Scheduled Provider: [facility] Appoint[facility] Type:NM Myocard Spect Multi Rest/Stress-Str Appointment Date:08/05/2023 11:15:00 AM Scheduled Provider: [facility] Appoint[facility] Type:NM Myocar Spect Multi Rest/Stress - St Appointment Date:08/15/2023 07:00:00 AM Scheduled Provider:Nancy Grace MD Location:[facility] Appointment Type: Open Appointment Date:08/19/2023 11:45:00 AM Scheduled Provider:Troy Coulter MD [facility] [place] Appointment Type:Cardiology Follow Up (FT) Appointment Date:07/09/2024 08:00:00 AM Scheduled Provider: Location:[facility] Appointment Type:FM Medicare Wellness Subsequent Future Scheduled Tests Laboratory* U Protein/Creat Ratio 07/14/23 * HgbA1c 07/14/23 * HgbA1c 07/26/23 * Microalbumin Level Urine 07/14/23 * CBC w/ Auto Diff 07/14/23 * Comprehensive Metabolic Panel 07/14/23 * Lipid Panel 07/14/23 Radiology* NM Myocardial Spect Rest/Stress 1 Day 08/05/23 [facility] Future Appointments Appointment Date:08/08/2023 12:30:00 PM Scheduled Provider: [facility] Appoint[facility] Type:NM Myocard Spect Multi Rest/Stress-Res Appointment Date:08/08/2023 01:30:00 PM Scheduled Provider: [facility] Appoint[facility] Type:NM Myocard Spect Multi Rest/Stress - R Appointment Date:08/08/2023 02:00:00 PM Scheduled Provider: [facility] Appointment Type:NM Myocard Spect Multi Rest/Stress-Str Appointment Date:08/08/2023 03:00:00 PM Scheduled Provider: [facility] Appointment Type:NM Myocar Spect Multi Rest/Stress - St Appointment Date:08/11/2023 09:30:00 AM Scheduled Provider: Location:[facility] Surgical Services Appointment Type:Surgical PAT FT Appointment Date:08/15/2023 07:00:00 AM Scheduled Provider:Nancy Grace MD Location:[facility] Appointment Type: Open Appointment Date:08/19/2023 11:45:00 AM Scheduled Provider:Troy Coulter MD [facility] Appointment Type:Cardiology Follow Up (FT) Appointment Date:09/01/2023 01:30:00 PM Scheduled Provider: Location:[facility] Surgical Services Appointment Type:Surgery FT Appointment Date:07/09/2024 08:00:00 AM Scheduled Provider: Location:[facility] Appointment Type: Medicare Wellness Subsequent Future Scheduled Tests Laboratory* U Protein/Creat Ratio 07/14/23 * HgbA1c 07/14/23 * HgbA1c 20 * Microalbumin Level Urine 07/14/23 * CBC w/ Auto Diff 07/14/23 * Comprehensive Metabolic Panel 07/14/23 * Lipid Panel 07/14/23 [facility] Future Appointments Appointment Date:08/15/2023 07:00:00 AM Scheduled Provider:Nancy Grace MD Location:[facility] Appointment Type: Open Appointment Date:08/19/2023 11:45:00 AM Scheduled Provider:Troy Coulter MD [facility] Appointment Type:Cardiology Follow Up (FT) Appointment Date:09/01/2023 01:30:00 PM Scheduled Provider: Location:[facility] Surgical Services Appointment Type:Surgery FT Appointment Date:07/09/2024 08:00:00 AM Scheduled Provider: Location:[facility] Appointment Type: Medicare Wellness Subsequent Future Scheduled Tests Laboratory* U Protein/Creat Ratio 07/14/23 * HgbA1c 07/14/23 * HgbA1c 22024 * Microalbumin Level Urine 07/14/23 * CBC w/ Auto Diff 07/14/23 * Comprehensive Metabolic Panel 07/14/23 * Lipid Panel 07/14/23 [facility] Future Appointments Appointment Date:08/19/2023 11:45:00 AM Scheduled Provider:Troy Coulter MD [facility] Appointment Type:Cardiology Follow Up (FT) Appointment Date:09/01/2023 01:30:00 PM Scheduled Provider: Location:[facility] Surgical Services Appointment Type:Surgery FT Appointment Date:07/09/2024 08:00:00 AM Scheduled Provider: Location:[facility] Appointment Type: Medicare Wellness Subsequent Diagnostic Tests Pending * Microalbumin Level Urine 08/15/23 * U Protein/Creat Ratio 08/15/23 Future Scheduled Tests Laboratory* U Protein/Creat Ratio 07/14/23 * HgbA1c 07/14/23 * HgbA1c 07/26/23 * Microalbumin Level Urine 07/14/23 * CBC w/ Auto Diff 07/14/23 * Comprehensive Metabolic Panel 07/14/23 * Lipid Panel 07/14/23 [facility] Future Appointments Appointment Date:09/01/2023 01:45:00 PM Scheduled Provider: Location:[facility] Appointment Type:Surgery FT Appointment Date:10/19/2023 12:00:00 PM Scheduled Provider:Troy Coulter MD [facility] Type:Cardiology Follow Up (FT) Appointment Date:07/09/2024 08:00:00 AM Scheduled Provider: Location:[facility] Appointment Type:FM Medicare Wellness Subsequent Future Scheduled Tests Laboratory* U Protein/Creat Ratio 07/14/23 * HgbA1c 07/14/23 * HgbA1c 07/26/23 * Microalbumin Level Urine 07/14/23 * CBC w/ Auto Diff 07/14/23 * Comprehensive Metabolic Panel 07/14/23 * Lipid Panel 07/14/23 [facility] Future Appointments Appointment Date:10/19/2023 12:00:00 PM Scheduled Provider:Troy Coulter MD [facility] Type:Cardiology Follow Up (FT) Appointment Date:07/09/2024 08:00:00 AM Scheduled Provider: Location:[facility] Appointment Type: Medicare Wellness Subsequent Future Scheduled Tests Laboratory* U Protein/Creat Ratio 07/14/23 * HgbA1c 07/14/23 * HgbA1c 07/26/23 * Microalbumin Level Urine 07/14/23 * CBC w/ Auto Diff 07/14/23 * Comprehensive Metabolic Panel 07/14/23 * Lipid Panel 07/14/23 [facility] Future Appointments Appointment Date:10/19/2023 12:00:00 PM Scheduled Provider:Troy Coulter MD [facility] Type:Cardiology Follow Up (FT) Appointment Date:01/10/2024 08:15:00 AM Scheduled Provider:Bryant TAO MD Location:[facility] Appointment Type:URO Office Visit Appointment Date:07/09/2024 08:00:00 AM Scheduled Provider: Location:[facility] Appointment Type:FM Medicare Wellness Subsequent Diagnostic Tests Pending * PSA Free & Total 12/05/23 Future Scheduled Tests Laboratory* U Protein/Creat Ratio 07/14/23 * HgbA1c 07/14/23 * HgbA1c 07/26/23 * Microalbumin Level Urine 07/14/23 * CBC w/ Auto Diff 07/14/23 * Comprehensive Metabolic Panel 07/14/23 * Lipid Panel 07/14/23 [facility] Evaluation + Plan note Future Appointments Appointment Date:11/22/2023 10:00:00 AM Scheduled Provider: Location:[facility] Urology Surgical Services Appointment Type:Urology CALL PAT FT Appointment Date:11/28/2023 02:00:00 PM Scheduled Provider: Location:[facility] Appointment Type:Urology FT Appointment Date:11/28/2023 03:00:00 PM Scheduled Provider: Location:[facility] Appointment Type:Urology FT Appointment Date:12/16/2023 09:00:00 AM Scheduled Provider:Javier Goins MD [facility] Appointment Type:Cardiology Follow Up (FT) Appointment Date:01/10/2024 08:15:00 AM Scheduled Provider:Bryant TAO MD Location:[facility] Appointment Type:URO Office Visit Appointment Date:07/09/2024 08:00:00 AM Scheduled Provider: Location:[facility] Appointment Type: Medicare Wellness Subsequent Future Scheduled Tests Laboratory* U Protein/Creat Ratio 824 * HgbA1c 224 * HgbA1c 24 * Microalbumin Level Urine 24 * CBC w/ Auto Diff 07/14/23 * Comprehensive Metabolic Panel 07/14/23 * Lipid Panel 07/14/23 [facility] Future Appointments Appointment Date:12/16/2023 09:00:00 AM Scheduled Provider:Javier Goins MD [facility] Appointment Type:Cardiology Follow Up (FT) Appointment Date:01/10/2024 08:15:00 AM Scheduled Provider:Bryant TAO MD Location:[facility] Appointment Type:URO Office Visit Appointment Date:07/09/2024 08:00:00 AM Scheduled Provider: Location:[facility] Appointment Type: Medicare Wellness Subsequent Future Scheduled Tests Laboratory* U Protein/Creat Ratio 07/14/23 * HgbA1c 07/14/23 * HgbA1c 2024 * Microalbumin Level Urine 07/14/23 * CBC w/ Auto Diff 07/14/23 * Comprehensive Metabolic Panel 07/14/23 * Lipid Panel 07/14/23 [facility] Future Appointments Appointment Date:01/10/2024 08:15:00 AM Scheduled Provider:Bryant TAO MD Location:[facility] Appointment Type:URO Office Visit Appointment Date:01/13/2024 09:00:00 AM Scheduled Provider:Javier Goins MD [facility] Appointment Type:Cardiology Follow Up (FT) Appointment Date:07/09/2024 08:00:00 AM Scheduled Provider: Location:[facility] Appointment Type:FM Medicare Wellness Subsequent Diagnostic Tests Pending * Urine Culture 12/22/23 Future Scheduled Tests Laboratory* U Protein/Creat Ratio 2824 * HgbA1c 28/24 * HgbA1c 2/20/24 * Microalbumin Level Urine 07/14/23 * CBC w/ Auto Diff 07/14/23 * Comprehensive Metabolic Panel 07/14/23 * Lipid Panel 07/14/23 [facility] Future Appointments Appointment Date:01/10/2024 08:15:00 AM Scheduled Provider:Bryant TAO MD Location:[facility] Appointment Type:URO Office Visit Appointment Date:01/13/2024 09:00:00 AM Scheduled Provider:Javier Goins MD Location:[facility] Appointment Type:Cardiology Follow Up (FT) Appointment Date:07/09/2024 08:00:00 AM Scheduled Provider: Location:[facility] Appointment Type: Medicare Wellness Subsequent Diagnostic Tests Pending * Magnesium Level 12/22/23 Future Scheduled Tests Laboratory* U Protein/Creat Ratio 07/14/23 * HgbA1c 07/14/23 * HgbA1c 07/26/23 * Microalbumin Level Urine 07/14/23 * CBC w/ Auto Diff 07/14/23 * Comprehensive Metabolic Panel 07/14/23 * Lipid Panel 07/14/23 [facility] Future Appointments Appointment Date:01/10/2024 08:15:00 AM Scheduled Provider:Bryant TAO MD Location:[facility] Appointment Type:URO Office Visit Appointment Date:01/13/2024 09:00:00 AM Scheduled Provider:Javier Goins MD [facility] Appointment Type:Cardiology Follow Up (FT) Appointment Date:07/09/2024 08:00:00 AM Scheduled Provider: Location:[facility] Appointment Type: Medicare Wellness Subsequent Future Scheduled Tests Laboratory* U Protein/Creat Ratio 07/14/23 * HgbA1c 07/14/23 * HgbA1c 07/26/23 * Microalbumin Level Urine 07/14/23 * CBC w/ Auto Diff 07/14/23 * Comprehensive Metabolic Panel 07/14/23 * Lipid Panel 07/14/23 [facility] Future Appointments Appointment Date:01/11/2024 08:00:00 AM Scheduled Provider: Location:[facility] Appointment Type:FM Lab Draw Appointment Date:01/13/2024 09:00:00 AM Scheduled Provider:Javier Goins MD [facility] Appointment Type:Cardiology Follow Up (FT) Appointment Date:07/09/2024 08:00:00 AM Scheduled Provider: Location:[facility] Appointment Type: Medicare Wellness Subsequent Appointment Date:07/23/2024 08:15:00 AM Scheduled Provider:Bryant TAO MD Location:[facility] Appointment Type:URO Office Visit Diagnostic Tests Pending * PSA Free & Total 01/10/24 Future Scheduled Tests Laboratory* U Protein/Creat Ratio 07/14/23 * HgbA1c 07/14/23 * HgbA1c 07/26/23 * Microalbumin Level Urine 07/14/23 * CBC w/ Auto Diff 07/14/23 * Comprehensive Metabolic Panel 07/14/23 * Lipid Panel 07/14/23 * Magnesium Level 01/05/24 * Urine Culture 01/05/24 [facility] Evaluation + Plan note Future Appointments Appointment Date:01/13/2024 09:00:00 AM Scheduled Provider:Javier Goins MD [facility] Appointment Type:Cardiology Follow Up (FT) Appointment Date:07/09/2024 08:00:00 AM Scheduled Provider: Location:[facility] Appointment Type: Medicare Wellness Subsequent Appointment Date:07/23/2024 08:15:00 AM Scheduled Provider:Bryant TAO MD Location:[facility] Appointment Type:URO Office Visit Future Scheduled Tests Laboratory* U Protein/Creat Ratio 07/14/23 * HgbA1c 07/14/23 * HgbA1c 07/26/23 * Microalbumin Level Urine 07/14/23 * CBC w/ Auto Diff 07/14/23 * Comprehensive Metabolic Panel 07/14/23 * Lipid Panel 07/14/23 [facility] Evaluation + Plan note Future Appointments Appointment Date:07/09/2024 08:00:00 AM Scheduled Provider: Location:[facility] [place] Appointment Type: Medicare Wellness Subsequent Appointment Date:07/23/2024 08:15:00 AM Scheduled Provider:Bryant TAO MD Location:[facility] Appointment Type:URO Office Visit Future Scheduled Tests Laboratory* U Protein/Creat Ratio 07/14/23 * HgbA1c 07/14/23 * HgbA1c 07/26/23 * Microalbumin Level Urine 07/14/23 * CBC w/ Auto Diff 07/14/23 * Comprehensive Metabolic Panel 07/14/23 * Lipid Panel 07/14/23 [facility] Evaluation + Plan note Future Appointments Appointment Date:07/24/2024 09:20:00 AM Scheduled Provider:TOSHIA Reddy APRN, [place] Location:[facility] Appointment Type:URO Office Visit Appointment Date:10/08/2024 08:15:00 AM Scheduled Provider:Nancy Grace MD Location:[facility] Appointment Type: Open Appointment Date:01/07/2025 08:15:00 AM Scheduled Provider:Nancy Grace MD Location:[facility] Appointment Type: Open Appointment Date:07/09/2025 08:00:00 AM Scheduled Provider: Location:[facility] Appointment Type:FM Medicare Wellness Subsequent Future Scheduled Tests Laboratory* U Protein/Creat Ratio 07/14/23 * HgbA1c 07/14/23 * HgbA1c 07/26/23 * Microalbumin Level Urine 07/14/23 * CBC w/ Auto Diff 07/14/23 * Comprehensive Metabolic Panel 07/14/23 * Lipid Panel 07/14/23 [facility] Evaluation + Plan note Future Appointments Appointment Date:08/21/2024 09:00:00 AM Scheduled Provider:TOSHIA Reddy APRN, [place] Location:[facility] Appointment Type:URO Office Visit Appointment Date:10/08/2024 08:15:00 AM Scheduled Provider:Nancy Grace MD Location:[facility] Appointment Type: Open Appointment Date:01/07/2025 08:15:00 AM Scheduled Provider:Nancy Grace MD Location:[facility] Appointment Type: Open Appointment Date:07/09/2025 08:00:00 AM Scheduled Provider: Location:[facility] Appointment Type: Medicare Wellness Subsequent Future Scheduled Tests Laboratory* U Protein/Creat Ratio 07/14/23 * HgbA1c 07/14/23 * HgbA1c 07/26/23 * Microalbumin Level Urine 07/14/23 * PSA Free & Total 07/24/24 * CBC w/ Auto Diff 07/14/23 * Comprehensive Metabolic Panel 07/14/23 * Lipid Panel 07/14/23 [facility] evaluation + Plan note Future Appointments Appointment Date:08/21/2024 09:00:00 AM Scheduled Provider:TOSHIA Reddy APRN, [place] Location:[facility] Appointment Type:URO Office Visit Appointment Date:10/08/2024 08:15:00 AM Scheduled Provider:Nancy Grace MD Location:[facility] Appointment Type: Open Appointment Date:01/07/2025 08:15:00 AM Scheduled Provider:Nancy Grace MD Location:[facility] Appointment Type: Open Appointment Date:07/09/2025 08:00:00 AM Scheduled Provider: Location:[facility] Appointment Type:FM Medicare Wellness [facility] evaluation + Plan note Future Appointments Appointment Date:09/03/2024 08:20:00 AM Scheduled Provider:RAMANDEEP PORTER PA-C Location:[facility] Appointment Type:URO Office Visit Appointment Date:10/08/2024 08:00:00 AM Scheduled Provider:Nancy Grace MD Location:[facility] Appointment Type: Open Appointment Date:01/07/2025 08:15:00 AM Scheduled Provider:Nancy Grace MD Location:[facility] Appointment Type: Open Appointment Date:07/09/2025 08:00:00 AM Scheduled Provider: Location:[facility] Appointment Type: Medicare Wellness Subsequent [facility] Evaluation noteNo assessment information available [facility] Work Phone: Evaluation note* Diagnosis Carpal tunnel syndrome on both sides- Primary Carpal tunnel syndrome Polyneuropathy Unspecified hereditary and idiopathic peripheral neuropathy documented in this encounter [facility] HealthcareEvaluation note* Diagnosis Carpal tunnel syndrome of right wrist- Primary Pain of right hand documented in this encounter [facility] HealthcareEvaluation note* Diagnosis Encounter for other preprocedural examination documented in this encounter [facility]* Diagnosis Preop examination Unspecified pre-operative examination [facility] Narrative No data available for this section [facility] Discharge instructions No data available for this section [facility] Discharge instructions Additional Instructions DISCHARGE INSTRUCTIONS FOR [...] your post-operative appointment in 1-2 weeks. [ ][facility] Work Phone: InstructionsNot on filedocumented in this encounter 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 Procedures EMG Marino Kearns [facility] [address] [place] [address] Phone: tel: fax: Carlos Howe DO [address] [place] [address] Phone: tel: fax:[phone] Referral ID Status Reason Start Date Expiration Date V isits Requested Visits Authorized [id number] Closed Perform Procedure 05/22/2024 11/18/2024 1 1 [facility] Summary Purpose Family History Relationship Condition Age at Onset Recorded Date/T kamran Not Specified Diabetes mellitus Unknown Hypertension Unknown father Hypertension Unknown Malignant neoplasm of colon Unknown brother Hypertension Unknown Advance Directives Advance Directive Response Recorded Date/ Time Advance [...] and content) DATE CREATED AUTHOR 07/14/2022 [facility] [place] [facility] DATE CREATED AUTHOR AUTHOR'S ORGANIZ ATION 09/19/2023 [facility] DATE CREATED AUTHOR AUTHOR'S ORGANIZ ATION 12/26/2023 [facility] DATE CREATED AUTHOR AUTHOR'S ORGANIZ ATION 12/27/2023 [facility] DATE CREATED AUTHOR AUTHOR'S ORGANIZ ATION 12/29/2023 [facility] DATE CREATED AUTHOR AUTHOR'S ORGANIZ ATION 12/30/2023 [facility] DATE CREATED AUTHOR AUTHOR'S ORGANIZ ATION 12/31/2023 [facility] DATE CREATED AUTHOR AUTHOR'S ORGANIZ ATION 01/03/2024 [facility] DATE CREATED AUTHOR AUTHOR'S ORGANIZ ATION 01/08/2024 [facility] DATE CREATED AUTHOR AUTHOR'S ORGANIZ ATION 02/01/2024 [facility] DATE CREATED AUTHOR AUTHOR'S ORGANIZ ATION 02/03/2024 [facility] DATE CREATED AUTHOR AUTHOR'S ORGANIZ ATION 02/24/2024 [facility] DATE CREATED AUTHOR AUTHOR'S ORGANIZ ATION 07/11/2024 [facility] DATE CREATED AUTHOR AUTHOR'S ORGANIZ ATION 07/18/2024 [facility] DATE CREATED AUTHOR AUTHOR'S ORGANIZ ATION 07/26/2024 [facility] DATE CREATED AUTHOR AUTHOR'S ORGANIZ ATION 08/10/2024 [facility] DATE CREATED AUTHOR AUTHOR'S ORGANIZ ATION 08/17/2024 [facility] DATE CREATED AUTHOR AUTHOR'S ORGANIZ ATION 08/17/2024 [facility] DATE CREATED AUTHOR AUTHOR'S ORGANIZ ATION 08/21/2024 [facility] DATE CREATED AUTHOR AUTHOR'S ORGANIZ ATION 08/23/2024 [facility] Patient Care team informatio n (unrecognized section and content) Personnel Name: Nancy Grace MD Address: [address] [place], [place] [address] [address] Telecom: Team Status: Active Member Role Status Dates Nancy Grace MD Primary Care Provider Active Team Status: Inactive Member Role Status Dates Ramandeep Porter PA-C Attending Provider Active Start: July 18, 2023 End: July 18, 2023 Nancy Grace MD Primary Care Provider Active Start: July 18, 2023 End: July 18, 2023 Team Status: Inactive Member Role Status Dates Nancy Grace MD Primary Care Provider Active Start: July 21, 2023 End: July 21, 2023 Ramandeep Porter PA-C Attending Provider Active Start: July 21, 2023 End: July 21, 2023 Team Status: Inactive Member Role Status Dates Nancy Grace MD Primary Care Provider Active Start: September 09, 2023 End: September 09, 2023 Bryant Tao MD Attending Provider Active St art: September 09, 2023 End: September 09, 2023 Overlocker Relationship Specialty Start Date End Date Nancy Grace MD [address] [place] [id number] PCP - General Family Medicine 07/18/24 Overlocker Relationship Specialty Start Date End Date Nancy Grace MD [address] [place] [id number] PCP - General Family Medicine 07/18/24 Overlocker Relationship Specialty Start Date End Date Tyrese Mcgrath MD PCP - General Family Medicine 02/27/18 Overlocker Relationship Specialty Start Date End Date Nancy Grace MD [address] [place] [id number] PCP - General Family Medicine 07/18/24 Overlocker Relationship Specialty Start Date End Date Nancy Grace MD [address] [place] [id number] PCP - General Family Medicine 07/18/24 Overlocker Relationship Specialty Start Date End Date Nancy Grace MD [address] [place] [id number] PCP - General Family Medicine 07/18/24 Goals (unrecognized section and content) Goals may be documented in a n alternate section Reason for Visit (unrecogniz ed section and content) Reason Comments Pain Reason Comments Pre-op Exam FOR RECORDS PERTAINING TO PATIENTS WHO ARE [...] BE BASED ON THE PRIMARY CLINICAL RECORDS. [employer] [facility]. provides no warranty or guarantee of the accuracy or completeness of information in this document.
--- NOTE | 2024-08-24 06:09 | ED.GENADUL1 ---
HPI HPI - General Adult General Chief complaint: Recheck/Abnormal Lab/Rx Stated complaint: LAB CHECK Time Seen by Provider: 08/24/24 06:02 Source: patient Mode of arrival: walk-in Limitations: no limitations History of Present Illness HPI narrative: 69-year-old male presents to the emergency department because of an issue with his magnesium. He received a phone call yesterday from his physician and was told that he had a critically low magnesium. Instead of coming here yesterday he went and bought tacos. He has no symptoms. He is on a magnesium supplement and states he has been taking it. Related Data Home Medications ?Medication ?Instructions ?Recorded ?Confirmed atorvastatin 20 mg tablet 40 mg PO DAILY 05/23/23 08/24/24 metformin 500 mg tablet 500 mg PO BID 05/23/23 08/24/24 metoprolol tartrate 25 mg tablet 25 mg PO Q12H 05/23/23 08/24/24 omeprazole 40 mg capsule,delayed 40 mg PO DAILY 05/23/23 08/24/24 release amlodipine 5 mg tablet 5 mg PO DAILY 01/31/24 08/24/24 lisinopril 40 mg tablet 40 mg PO DAILY 01/31/24 08/24/24 magnesium oxide 400 mg (241.3 mg 400 mg PO BID 01/31/24 08/24/24 magnesium) tablet Previous Rx's ?Medication ?Instructions ?Recorded tamsulosin 0.4 mg capsule (Flomax) 0.4 mg PO DAILY #20 caps 06/04/23 Allergies Allergy/AdvReac Type Severity Reaction Status Date / Time No Known Drug Allergies Allergy Verified 08/24/24 05:49 Opioid HPI Opioid Management Most Recent Opioid Data: No Data to Display Review of Systems ROS Narrative A ten point review of systems is negative except as noted above. PFSH PFSH Social History Smoking status: Never smoker Little interest or pleasure in doing things: not at all Feeling down, depressed, or hopeless: not at all Exam Narrative Exam Narrative: Nurses note and vital signs reviewed and patient is not hypoxic. General: The patient appears well and in no apparent distress. Patient is resting comfortably on cart. Skin: Warm, dry, no pallor noted. There is no rash noted. Head: Normocephalic, atraumatic Eye: Normal conjunctiva, no drainage Ears, Nose, Mouth, and Throat: oral mucosa is moist. Nares patent. Cardiovascular: Regular Rate and Rhythm Respiratory: Patient is in no distress, no accessory muscle use, lungs are clear to auscultation, no wheezing, rales or rhonchi Back: non-tender GI: Soft and nontender Musculoskeletal: The patient has no evidence of calf tenderness, no pitting edema, symmetrical pulses noted bilaterally Neurological: A&O, normal speech Psychiatric: Cooperative Constitutional Vital Signs, click to edit/add: Last Vital Signs Temp 97.8 F 08/24/24 05:46 Pulse 100 H 08/24/24 05:46 Resp 18 08/24/24 05:46 BP 122/74 08/24/24 05:46 Pulse Ox 99 08/24/24 05:46 O2 Del Method Room Air 08/24/24 05:46 Course Vital Signs Vital signs: Vital Signs Temperature 97.8 F 08/24/24 05:46 Pulse Rate 100 H 08/24/24 05:46 Respiratory Rate 18 08/24/24 05:46 Blood Pressure 122/74 08/24/24 05:46 Pulse Oximetry 99 08/24/24 05:46 Oxygen Delivery Method Room Air 08/24/24 05:46 Temperature 97.8 F 08/24/24 05:46 Pulse Rate 100 H 08/24/24 05:46 Respiratory Rate 18 08/24/24 05:46 Blood Pressure 122/74 08/24/24 05:46 Pulse Oximetry 99 08/24/24 05:46 Oxygen Delivery Method Room Air 08/24/24 05:46 Medical Decision Making MDM Narrative Medical decision making narrative: Magnesium is 0.3. He was ordered 4 g of magnesium and the patient is signed out to Dr. Laureano at change of shift. Differential Diagnosis Differential Diagnosis: Hypomagnesemia Lab Data Lab results reviewed: Yes I reviewed the patient's lab results Labs: Lab Results 08/24/24 Range/Units 05:55 WBC 6.8 (4.0-11.0) 10^3/uL RBC 3.85 L (4.70-6.10) 10^6/uL Hgb 12.8 L (14.0-18.0) g/dL Hct 37.5 L (42.0-54.0) % MCV 97.4 H (80.0-94.0) fL MCH 33.2 (25.9-34.0) pg MCHC 34.1 (29.9-35.2) g/dL RDW 11.8 (11.0-15.0) % Plt Count 239 (150-450) 10^3/uL MPV 9.3 L (9.5-13.5) fL Neut % (Auto) 63.2 (43.0-75.0) % Lymph % (Auto) 23.3 (20.5-60.0) % [place] % (Auto) 9.0 (1.7-12.0) % Eos % (Auto) 2.9 (0.9-7.0) % Baso % (Auto) 1.0 (0.2-2.0) % Neut # (Auto) 4.3 (1.4-6.5) 10^3/uL Lymph # (Auto) 1.6 (1.2-3.8) 10^3/uL [place] # (Auto) 0.6 (0.3-0.8) 10^3/uL Eos # (Auto) 0.2 (0.0-0.7) 10^3/uL Baso # (Auto) 0.1 (0.0-0.1) 10^3/uL Abs Immat Gran (auto) 0.04 H (0.00-0.03) 10^3/uL Imm/Tot Granulo (auto) 0.6 H (0.0-0.5) % Sodium 136 (136-145) mmol/L Potassium 4.1 (3.5-5.1) mmol/L Chloride 101 (98-107) mmol/L Carbon Dioxide 27.4 (21.0-32.0) mmol/L Anion Gap 11.7 BUN 18.0 (7.0-18.0) mg/dL Creatinine 1.46 H (0.70-1.30) mg/dL Est GFR ( Amer) 58 L (>=60 mL/min/1.73m^2) Est GFR (Non-Af Amer) 48 L (>=60 mL/min/1.73m^2) BUN/Creatinine Ratio 12.3 Glucose 246 H (74-106) mg/dL Calcium 8.5 (8.5-10.1) mg/dL Magnesium 0.3 L* (1.8-2.4) mg/dL Discharge Plan Discharge Patient Disposition: Still a Patient
[2024-08-24 06:23] LABS: Basophils Absolute Auto 0.1 10^3/uL (0.0-0.1); Eosinophils Absolute Auto 0.2 10^3/uL (0.0-0.7); Eosinophils Percent Auto 2.9 % (0.9-7.0); Hematocrit 37.5 % (42.0-54.0); Hemoglobin 12.8 g/dL (14.0-18.0); Immature Granulocytes Abs Auto 0.04 10^3/uL (0.00-0.03); Immature Granulocytes Pct Auto 0.6 % (0.0-0.5); Lymphocytes Absolute Auto 1.6 10^3/uL (1.2-3.8); Lymphocytes Percent Auto 23.3 % (20.5-60.0); Mean Corpuscular HGB Conc 34.1 g/dL (29.9-35.2); Mean Corpuscular Hemoglobin 33.2 pg (25.9-34.0); Mean Corpuscular Volume 97.4 fL (80.0-94.0); Mean Platelet Volume 9.3 fL (9.5-13.5); Monocytes Absolute Auto 0.6 10^3/uL (0.3-0.8); Neutrophils Absolute Auto 4.3 10^3/uL (1.4-6.5); Neutrophils Percent Auto 63.2 % (43.0-75.0); Platelet Count 239 10^3/uL (150-450); Red Blood Count 3.85 10^6/uL (4.70-6.10); Red Cell Distribution Width 11.8 % (11.0-15.0); White Blood Count 6.8 10^3/uL (4.0-11.0)
[2024-08-24 06:33] LABS: Anion Gap 11.7; BUN Creatinine Ratio 12.3; Calcium 8.5 mg/dL (8.5-10.1); Carbon Dioxide 27.4 mmol/L (21.0-32.0); Chloride 101 mmol/L (98-107); Estimated GFR (African America 58 (>=60 mL/min/1.73m^2); Estimated GFR (Non-African Ame 48 (>=60 mL/min/1.73m^2); Glucose 246 mg/dL (74-106); Potassium 4.1 mmol/L (3.5-5.1); Sodium 136 mmol/L (136-145)
[2024-08-24 06:37] LABS: Magnesium 0.3 mg/dL (1.8-2.4)
[2024-08-24] MEDS: MAGNESIUM SULFATE IN WATER 2 GM/50 ML PREMIX IV ×3 (07:05→09:55)
--- NOTE | 2024-08-24 07:35 | ECG_ITS ---
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 Measurements Intervals [place] Rate: 81 P: 35 ID: [id number] QRS: 30 QRSD: 82 T: 32 QT: 344 QTc: 381 Interpretive Statements 1100 Sinus rhythm 3114 Cannot rule out anterior myocardial infarction, age undetermined 8102 Low QRS voltage in chest leads 9150 abnormal ECG Compared to ECG 07/17/2024 03:49:06 Myocardial infarct finding now present Sinus tachycardia no longer present Electronically Signed On 08-24-2024 17:37:40 EDT by LAUREN GLASS M.D.
[2024-08-24 09:25] LABS: Magnesium 1.6 mg/dL (1.8-2.4)
== END 2024-08-24 10:30 | disposition home or self-care (01) ==
PROVIDERS: Emergency Medicine; Emergency Provider Emergency Medicine; PCP Family Medicine
DX: E83.42 Hypomagnesemia (principal)
CPT/HCPCS: 36415; 80048; 83735; 85025; 93005; 96365; 96366; 96368; 99284; J3475

== ENCOUNTER 2024-08-25 08:07 | Outpatient (OUT) | payer MEDICARE, OTHER, SELFPAY ==
--- OUTSIDE RECORDS SUMMARY | 2024-08-25 08:14 | XMS_ITS | CCD ---
Author Organization [facility] Care Team Providers Care Field Return Repairer Name Role Phone DR TYRESE MCGRATH Admitting Unavailable DR TYRESE MCGRATH Attending Unavailable DR TYRESE MCGRATH Primary Care Unavailable DR TYRESE MCGRATH Consulting Unavailable Nancy Grace Primary Care Physician [phone] GINO Porter Attending Provider MD Nnacy Grace Primary Care Provider MD Nancy Grace Primary Care Provider GINO Porter Attending [...] Unavailable Nancy Grace MD Primary Care Provider [phone] Estefania Reddy Attending Unavailable Nancy Grace EMalgorzata Attending Unavailable Nancy Grace E. Admitting Unavailable Nancy Grace E. Admitting Unavailable Nancy Grace E. Attending Unavailable Tyrese Mcgrath MD Primary Care Provider NONE, XXXX Referring Unavailable MD Javier Goins Attending Unavailable COOK Bryant P Attending Unavailable Nancy Grace EMalgorzata Attending Unavailable Nancy Grace E. Attending Unavailable SHIRA, SPLIT LEATHER MOSSER MARINO A Attending Unavailabl e COOKLinusBryant P Attending Unavailable COOK, Bryant P Attending Unavailable COOK Bryant P Attending Unavailable COOK, Bryant P Referring Unavailable COOK, Bryant P Admitting Unavailable COOK, Bryant P Referring Unavailable COOK, Bryant P Admitting Unavailable COOK, Bryant P Attending Unavailable SHIRA, SPLIT LEATHER MOSSER MARINO A Admitting Unavailabl e SHIRA, SPLIT LEATHER MOSSER MARINO A Attending Unavailabl e Nancy Grace EMalgorzata Admitting Unavailable Nancy Grace E. Attending Unavailable SHIRA, SPLIT LEATHER MOSSER MARINO A Admitting Unavailabl e SHIRA, SPLIT LEATHER MOSSER MARINO A Attending Unavailabl e Jacinto Ramirez [...] Grace Attending Unavailable RAMANDEEP PORTER Attending Unavailable Nancy Grace Attending Unavailable Nancy Grace Admitting Unavailable Allergies Allergy Classification Reported Allergen(s) Allergy Type Date of Onset Reaction(s) Facility (13 sources) celecoxib; Translations: [CeleBREX] Drug Allergy [facility] Rep[facility] (1 source) Cetirizine Drug Allergy [facility] (20 sources) celecoxib; Translations: [celecoxib] Drug Allergy Unknown (qualifier value), Anxiety (finding) [facility] (3 sources) celecoxib Drug Allergy Anxiety, Unknown [facility] Medications Current Medications Medication Drug Class(es) Dates Sig (Normalized) Sig (Original) 0.25 MG, 0.5 MG Dose 3 ML semaglutide 0.68 MG/ML Pen Injector [Ozempic] (3 sources) Start: 07-16-2024 Ozempic 2 mg/3 mL (0.25 mg or 0.5 mg dose) subcutaneous solution 0.25 mg, SubCutaneous, qWeek, # 3 mL, Refills(s) 0, Pharmacy: [facility]/pharmacy #[id number], 175.3, cm, 07/16/24 8:18:00 EST, [...] 12:00am Start: 08-19-2023 take 2 tablets by [facility] once daily Norvasc 5 mg Tab 10 mg = 2 tab(s), Oral, Daily, # 60 tab(s), Refills(s) 6, [id number], cm, 08/19/23 11:59:00 EDT, Height/Length Dosing, 106, kg, 08/19/23 11:59:00 EDT, Weight Dosing Start Date: 08/19/23 Status: Ordered Start: 08-15-2023 amLODIPine 5 m g Tab See Instructions, TAKE 1 TABLET DAILY, # 90 tab(s), Refills(s) 1, Pharmacy: [facility], 175.3, cm, 01/13/24 9:06:00 EDT, Height/Length Dosing, 110.9, kg, 01/13/24 9:06:00 EDT, Weight Dosing Start Date: 01/30/24 Status: Ordered amoxicillin 500 mg oral capsule (2 sources) Penicillin-class Antibacterial Start: 01-05-2024 take 1 capsule by mouth every twelve hours amoxicillin 500 mg Cap 500 mg = 1 cap(s), Oral, q12hr, # 20 cap(s), Refills(s) 0, [id number] 175.3, cm, 01/05/24 7:50:00 EDT, Height/Length [...] # 90 tab(s), Refills(s) 0, Pharmacy: [facility], 174.5, cm, 06/13/23 8:07:00 EST, Height/Length Dosing, 102.3, kg, 06/13/23 8:07:00 EST, Weight Dosing Start Date: 06/13/23 Status: Ordered atorvastatin 40 mg oral tablet (20 sources) HMG-CoA Reductase Inhibitor Start: 01-30-2024 atorvastatin 40 mg Tab See Instructions, TAKE 1 TABLET DAILY, # 90 tab(s), Refills(s) 3, Pharmacy: [facility], 175.3, cm, 07/09/24 8:31:00 EST, Height/Length Dosing, 114.2, kg, 07/09/24 8:31:00 EST, Weight Dosing Start Date: 07/10/24 Status: Ordered Start: 06-13-2023 take 1 tablet by marly th once daily atorvastatin 40 mg Tab 40 mg = 1 tab(s), Oral, Daily, # 90 tab(s), Refills(s) 1, Pharmacy: [facility], 174.5, cm, 06/13/23 8:07:00 EST, Height/Length Dosing, 102.3, kg, 06/13/23 8:07:00 EST, Weight Dosing Start Date: 06/13/23 Status: Ordered Start: 02-14-2023 take 1 tablet by marly th at bedtime atorvastatin 20 mg Tab 20 mg = 1 tab(s), Oral, Bedtime, # 90 tab(s), Refills(s) 1, Pharmacy: [facility], 174.5, cm, 02/14/23 7:27:00 EDT, Height/Length [...] day(s), # 14 tab(s), Refills(s) 0, Pharmacy: [facility], 172, cm, 12/22/23 7:41:00 EDT, Height/Length Dosing, 107.8, kg, 12/22/23 7:41:00 EDT, Weight Dosing Start Date: 12/22/23 Stop Date: 12/29/23 Status: Ordered Start: 09-27-2023 Cipro 500 mg T ab See Instructions, Take 1 tab day prior to procedure and 1 tab day of procdure - afterwards, # 2 tab(s), Refills(s) 0, Pharmacy: [facility]/pharmacy #[id number], 174.5, cm, 09/22/23 12:37:00 EDT, Height/Length Dosing, 105.9, kg, 09/22/23 12:37:00 EDT, Weight Dosing Start Date: 09/27/23 Status: Ordered Start: 08-03-2023 take 1 tablet by marly th twice daily Cipro 500 mg Tab 500 mg = 1 tab(s), Oral, BID, start 3 days prior to procedure, # 14 tab(s), Refills(s) 0, Pharmacy: [facility]/pharmacy #[id number], 174.5, cm, 07/27/23 11:17:00 EST, Height/Length Dosing, 102.3, kg, 07/27/23 11:17:00 EST, Weight Dosing Start Date: 08/03/23 Status: Ordered Start: 06-28-2023 Cipro 500 mg T ab See Instructions, Take 1 tab day prior to procedure and 1 tab day of procdure - afterwards, # 2 tab(s), Refills(s) 0, Pharmacy: [facility]/pharmacy #[id number], 175.4, cm, 06/28/23 7:53:00 EST, [...] BID, # 180 tab(s), Refills(s) 0, Pharmacy: [facility], 172, cm, 12/27/23 7:51:00 EDT, Height/Length Dosing, 109.8, kg, 12/27/23 7:51:00 EDT, Weight Dosing Start Date: 12/27/23 Status: Ordered Freestyle Alejandra 2 Flash Glucose Monitoring 14 Day System ([employer] [place]) (6 sources) Start: 02-14-2023 Freestyle Libr e 2 Flash Glucose Monitoring 14 Day System ([employer] [place]) Freestyle Alejandra 2 Flash Glucose Monitoring 14 Day System ([employer] [place]), See Instructions, 1 EA, 0, Freestyle Alejandra Flash Glucose Monitoring 14 Day System ([employer] [place]), [facility]/pharmacy #[id number], Supply, 174.5, cm, 02/14/23 7:27:00 [...] bedtime), # 30 cap(s), Refills(s) 0, Pharmacy: [facility]/pharmacy #[id number], 175.3, cm, 05/18/24 7:58:00 EST, [...] # 360 tab(s), Refills(s) 1, Pharmacy: [facility], 174.5, cm, 05/26/23 9:14:00 EST, Height/Length Dosing, 109.1, kg, 05/26/23 9:14:00 EST, Weight Dosing Start Date: 05/26/23 Status: Ordered Start: 05-16-2023 take 1 tablet by marly twice daily glipiZIDE 5 mg Tab 5 mg = 1 tab(s), Oral, BID, # 90 tab(s), Refills(s) 1, Pharmacy: [facility], 174.5, cm, 05/16/23 7:26:00 EST, Height/Length Dosing, 113.4, kg, 05/16/23 7:26:00 EST, Weight Dosing Start Date: 05/16/23 Status: Ordered Start: 02-14-2023 take 1 tablet by marly once daily glipiZIDE 5 mg Tab 5 mg = 1 tab(s), Oral, Daily, # 90 tab(s), Refills(s) 1, Pharmacy: [facility], 174.5, cm, 02/14/23 7:27:00 EDT, Height/Length [...] day(s), # 10 tab(s), Refills(s) 0, Pharmacy: [facility]/pharmacy #[id number], 172, cm, 12/29/23 13:54:00 EDT, Height/Length Dosing, 109.8, kg, 12/29/23 13:54:00 EDT, Weight Dosing Start Date: 12/30/23 Stop Date: 01/09/24 Status: Ordered lisinopril 40 mg oral tablet (14 sources) Angiotensin Converting Enzyme Inhibitor Start: 12-30-2023 take 1 tablet by mouth once daily lisinopril 40 mg Tab 40 mg = 1 tab(s), Oral, Daily, # 90 tab(s), Refills(s) 4, Pharmacy: [facility], 175.3, cm, 01/13/24 9:06:00 EDT, [...] 01/11/24-, # 30 tab(s), Refills(s) 3, Pharmacy: [facility]/pharmacy #[id number], 175.3, cm, 01/13/24 9:06:00 EDT, Height/Length Dosing, 110.9, kg, 01/13/24 9:06:00 EDT, Weight Dosing Start Date: 02/20/24 Status: Ordered Start: 01-30-2024 take 1 tablet by marly th three times daily magnesium oxide 400 mg Tab 400 mg, Oral, TID, dose change-last magnesium level completed 01/11/24-, # 90 tab(s), Refills(s) 3, Pharmacy: [facility], 175.3, cm, 01/13/24 9:06:00 EDT, Height/Length Dosing, 110.9, kg, 01/13/24 9:06:00 EDT, Weight Dosing Start Date: 01/30/24 Status: Ordered Start: 12-30-2023 take 1 tablet by marly th twice daily magnesium oxide 400 mg Tab 400 mg = 1 tab(s), Oral, BID, # 60 tab(s), Refills(s) 0, Pharmacy: [facility]/pharmacy #[id number], 172, cm, 12/29/23 13:54:00 EDT, Height/Length Dosing, 109.8, kg, 12/29/23 13:54:00 EDT, Weight Dosing Start Date: 12/30/23 Status: Ordered Start: 12-22-2023 take 1 tablet by [facility] once daily magnesium oxide 400 mg Tab 400 mg = 1 tab(s), Oral, Daily, # 60 tab(s), Refills(s) 0, Pharmacy: [facility], 172, cm, 12/22/23 7:41:00 EDT, Height/Length Dosing, 107.8, kg, 12/22/23 7:41:00 EDT, Weight Dosing Start Date: 12/22/23 Status: Ordered Start: 08-18-2023 take 1 tablet by [facility] once daily magnesium oxide 400 mg Tab 400 mg = 1 tab(s), Oral, Daily, # 60 tab(s), Refills(s) 0, [id number], cm, 08/15/23 7:04:00 EDT, Height/Length Dosing, 107.2, kg, 08/15/23 7:04:00 EDT, Weight Dosing Start Date: 08/18/23 Status: Ordered Start: 06-15-2023 take 1 tablet by [facility] once daily magnesium oxide 400 mg Tab 400 mg = 1 tab(s), Oral, Daily, # 60 tab(s), Refills(s) 0, Pharmacy: [facility]/pharmacy #[id number], 175, cm, 06/14/23 10:52:00 EST, Height/Length Dosing, 102.3, kg, 06/14/23 10:52:00 EST, Weight Dosing Start Date: 06/15/23 Status: Ordered 24 hr metFORMIN hydrochloride 500 mg extended release oral tablet (20 sources) Biguanide Start: 04-12-2024 take 2 tablets by mouth twice daily Glucophage XR 500 mg Tab-ER 1,000 mg = 2 tab(s), Oral, BID, # 360 tab(s), Refills(s) 1, Pharmacy: [facility], 175.3, cm, 01/13/24 9:06:00 EDT, Height/Length Dosing, 110.9, kg, 01/13/24 9:06:00 EDT, Weight Dosing Start Date: 04/12/24 Status: Ordered Start: 07-26-2023 take 2 tablets by [facility] twice daily Glucophage XR 500 mg Tab-ER 1,000 mg = 2 tab(s), Oral, BID, # 360 tab(s), Refills(s) 1, Pharmacy: [facility], 174, cm, 07/26/23 10:21:00 EST, Height/Length Dosing, 104.8, kg, 07/26/23 10:21:00 EST, Weight Dosing Start Date: 07/26/23 Status: Ordered Start: 06-13-2023 take 2 tablets by [facility] twice daily Glucophage XR 500 mg Tab-ER 1,000 mg = 2 tab(s), Oral, BID, # 360 tab(s), Refills(s) 1, Pharmacy: [facility], 174.5, cm, 06/13/23 8:07:00 EST, Height/Length Dosing, 102.3, kg, 06/13/23 8:07:00 EST, Weight Dosing Start Date: 06/13/23 Status: Ordered Start: 11-15-2022 End: 11-10-2023 take 2 tablets by mouth once daily metformin 500 mg Tab 1,000 mg = 2 tab(s), Oral, Daily, X 90 day(s), # 180 tab(s), Refills(s) 3, Pharmacy: [facility] Start Date: 11/15/22 Stop Date: 11/10/23 [...] Daily, # 30 tab(s), Refills(s) 6, Pharmacy: [facility]/pharmacy #[id number], 172, cm, 08/19/23 11:59:00 EDT, Height/Length Dosing, 106, kg, 08/19/23 11:59:00 EDT, Weight Dosing Start Date: 08/19/23 Status: Ordered [facility] Prescription (20 sources) Start: 05-26-2023 Start: 05-26-[address] [facility] D[facility] Presc ription [facility] Prescription, See Instructions, 1 kit(s), 0, One Touch Ultra 2 glucose meter kit Use to tests sugars daily E11.9, [facility], 174.5, cm, 05/26/23 9:14:00 [...] DAY, # 90 cap(s), Refills(s) 0, Pharmacy: [id number], 175.3, cm, 07/16/24 8:18:00 EST, Height/Length Dosing, 114, kg, 07/16/24 8:18:00 EST, Weight Dosing Start Date: 08/14/24 Status: Ordered Start: 01-10-2024 take 1 capsule by mo mah once daily omeprazole 20 mg Cap-DR 20 mg = 1 cap(s), Oral, Daily, # 30 cap(s), Refills(s) 0 Start Date: 01/10/24 Status: Ordered Start: 11-14-2023 omeprazole 40 mg Cap-DR See Instructions, TAKE 1 CAPSULE DAILY, # 90 cap(s), Refills(s) 1, Pharmacy: [facility], 172, cm, 10/19/23 8:14:00 EDT, Height/Length Dosing, 108.4, kg, 10/19/23 8:26:00 EDT, Weight Dosing Start Date: 11/14/23 Status: Ordered Start: 08-15-2023 take 1 capsule by [facility] once daily omeprazole 40 mg Cap-DR 40 mg = 1 cap(s), Oral, Daily, # 90 cap(s), Refills(s) 0, Pharmacy: [facility], 172, cm, 08/15/23 7:04:00 EDT, Height/Length Dosing, 107.2, kg, 08/15/23 7:04:00 EDT, Weight Dosing Start Date: 08/15/23 Status: Ordered Start: 07-26-2023 take 1 capsule by [facility] once daily omeprazole 40 mg Cap-DR 40 mg = 1 cap(s), Oral, Daily, # 90 cap(s), Refills(s) 0, Pharmacy: [facility], 174, cm, 07/26/23 10:21:00 EST, Height/Length Dosing, 104.8, kg, 07/26/23 10:21:00 EST, Weight Dosing Start Date: 07/26/23 Status: Ordered Start: 01-20-2023 take 1 capsule by [facility] once daily omeprazole 40 mg Cap-DR 40 mg = 1 cap(s), Oral, Daily, # 90 cap(s), Refills(s) 0, Pharmacy: [facility], 174.5, cm, 06/21/23 13:33:00 EST, Height/Length [...] DAY, # 90 cap(s), Refills(s) 3, Pharmacy: [facility], 172, cm, 10/19/23 8:14:00 EDT, Height/Length Dosing, 108.4, kg, 10/19/23 8:26:00 EDT, Weight Dosing Start Date: 10/19/23 Status: Ordered Start: 09-13-2023 take 1 capsule by mo uth once daily potassium chloride 10 mEq Cap-ER See Instructions, TAKE 1 CAPSULE BY MOUTH EVERY DAY, # 90 cap(s), Refills(s) 1, Pharmacy: [facility] [id number], 172, cm, 08/19/23 11:59:00 EDT, Height/Length Dosing, 106, kg, 08/19/23 11:59:00 EDT, Weight Dosing Start Date: 09/13/23 Status: Ordered Start: 09-09-2023 take 10 mEq by mouth once iram y Potassium Chloride Active 10 MEQ PO Daily September 09, 2023 12:00am Start: 08-18-2023 take 1 capsule by mo uth once daily potassium chloride 10 mEq Cap-ER 10 mEq = 1 cap(s), Oral, Daily, # 30 cap(s), Refills(s) 0, Pharmacy: [facility]/pharmacy #[id number], 172, cm, 08/15/23 7:04:00 EDT, Height/Length Dosing, 107.2, kg, 08/15/23 7:04:00 EDT, Weight Dosing Start Date: 08/18/23 Status: Ordered Start: 06-15-2023 take 1 capsule by mo mah once daily potassium chloride 10 mEq Cap-ER 10 mEq = 1 cap(s), Oral, Daily, # 30 cap(s), Refills(s) 0, Pharmacy: [facility]/pharmacy #[id number], 175, cm, 06/14/23 10:52:00 EST, Height/Length Dosing, 102.3, kg, 06/14/23 10:52:00 EST, Weight Dosing Start Date: 06/15/23 Status: Ordered Start: 05-26-2023 End: 06-02-2023 take 1 tablet by mouth twice daily Potassium Chloride (Eqv-K-Tab) 20 mEq oral tablet, extended release 20 mEq = 1 tab(s), Oral, BID, X 7 day(s), # 14 tab(s), Refills(s) 0, Pharmacy: [facility]/pharmacy #[id number], 174.5, cm, 05/26/23 9:14:00 EST, Height/Length [...] qPM, # 90 cap(s), Refills(s) 4, Pharmacy: [facility], 175.3, cm, 01/13/24 9:06:00 EDT, Height/Length Dosing, 110.9, kg, 01/13/24 9:06:00 EDT, Weight Dosing Start Date: 05/07/24 Status: Ordered Start: 01-20-2024 take 1 capsule by mo ut once daily in the evening tamsulosin 0.4 mg Cap 0.4 mg = 1 cap(s), Oral, qPM, # 90 cap(s), Refills(s) 3, Pharmacy: [facility], 175.3, cm, 01/13/24 9:06:00 EDT, [...] Daily, # 90 tab(s), Refills(s) 0, Pharmacy: [facility], 175.3, cm, 01/13/24 9:06:00 EDT, Height/Length Dosing, 110.9, kg, 01/13/24 9:06:00 EDT, Weight Dosing Start Date: 01/26/24 Status: Ordered Start: 12-30-2023 take 1 tablet by [facility] once daily cyanocobalamin 1000 mcg Tab 1,000 mcg = 1 tab(s), Oral, Daily, # 30 tab(s), Refills(s) 0, Pharmacy: [facility]/pharmacy #[id number], 172, cm, 12/29/23 13:54:00 EDT, Height/Length Dosing, 109.8, kg, 12/29/23 13:54:00 EDT, Weight Dosing Start Date: 12/30/23 Status: Ordered Zofran ODT 4 mg Tab-Dis (14 sources) Start: 08-15-2023 take 1 tablet by mouth every eight hours as needed for nausea Zofran ODT 4 mg Tab-Dis 4 mg = 1 tab(s), Oral, q8hr, PRN Nausea/Vomiting, # 12 tab(s), Refills(s) 0, Pharmacy: [facility]/pharmacy #[id number], 172, cm, 08/15/23 7:04:00 EDT, Height/Length Dosing, 107.2, kg, 08/15/23 7:04:00 EDT, Weight Dosing Start Date: 08/15/23 Status: Ordered Start: 07-13-2023 take 1 tablet by marly th every eight hours as needed for nausea Zofran ODT 4 mg Tab-Dis 4 mg = 1 tab(s), Oral, q8hr, PRN Nausea/Vomiting, # 12 tab(s), Refills(s) 0, Pharmacy: [facility]/pharmacy #[id number], 175.4, cm, 06/28/23 7:53:00 EST, [...] completed., # 2 cap(s), Refills(s) 0, Pharmacy: [facility]/pharmacy #[id number], 174.5, cm, 09/22/23 12:37:00 EDT, Height/Length Dosing, 105.9, kg, 09/22/23 12:37:00 EDT, Weight Dosing Start Date: 09/22/23 Status: Ordered Start: 05-26-2023 End: 06-02-2023 take 1 capsule by mouth four times daily Keflex 250 mg Cap 250 mg = 1 cap(s), Oral, QID, X 7 day(s), # 28 cap(s), Refills(s) 0, Pharmacy: [facility]/pharmacy #[id number], 174.5, cm, 05/26/23 9:14:00 EST, Height/Length Dosing, 109.1, kg, 05/26/23 9:14:00 EST, Weight Dosing Start Date: 05/26/23 Stop Date: 06/02/23 Status: Ordered Start: 05-16-2023 End: 05-23-2023 take 1 capsule by mouth four times daily Keflex 250 mg Cap 250 mg = 1 cap(s), Oral, QID, X 7 day(s), # 28 cap(s), Refills(s) 0, Pharmacy: [facility], 174.5, cm, 05/16/23 7:26:00 EST, Height/Length Dosing, 113.4, kg, 05/16/23 7:26:00 EST, Weight Dosing Start Date: 05/16/23 Stop Date: 05/23/23 Status: Ordered Start: 05-19-2017 End: 09-09-2023 take 1 capsule by mouth every eight hours Cephalexin (Keflex) 500 mg capsule Discontinued 500 MG PO Q8H 21 May 19, 2017 1:00am September 09, 2023 11:39am cyclobenzaprine hydrochloride 10 mg oral tablet (3 sources) Muscle Relaxant Start: 04-04-2017 End: 09-09-2023 take 10 mg by mouth three times daily Cyclobenzaprine Discontinued 10 MG PO Three times daily April 04, 2017 12:00am September 09, 2023 11:39am docusate sodium 50 mg / sennosides, [facility] 8.6 mg oral tablet (3 sources) Start: [...] current use of drug therapy; Translations: [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 NANCY GRACE at: 08/22/2024 18:46:44 by:CAROLINE Taylor 08-22-2024 Magnesium [Mass/Vol] 0.6 mg/dL Abnormal 1.3-2.4 [facility] Comment on above: Result Comment: Crit ical Result Verified by Repeat Analysis Critical Result S_M.[id number] Called to and read back by: DR. NANCY GRACE at: 08/22/2024 18:46:44 by:CAROLINE Performed By: #### 2 [id number] #### [facility] [address] [place] [address] Ambulatory Visit Summaryon 0 08-21-2024 Ambulatory Visit Summary Ambulatory Visit Summary ALICJA REYES :1955 Visit Date:08/21/2024 Ambulatory Visit Instructions Your Diagnosis Elevated PSA Incomplete bladder emptying Hypotonic neurogenic bladder BPH without urinary obstruction PIN (prostatic intraepithelial neoplasia) Your Care Team Attending Physician - TOSHIA Reddy APRN, Estefania Santiago Primary Care Physician - Nancy [...] RAMANDEEP PORTER PA-C Where: [facility] [address] [place] [address]- Tuesday 8:00 AM EDT With: Nancy Grace MD Where: [facility] [address] [address]- Tuesday 8:15 AM EDT With: Ruiz REYNOLDS, Nancy Thompson Where: [address] [address]- Tuesday2025 8:00 AM EST With: Where: [address] [address]- You Need to Schedule the Following Appointments Follow Up with Maureen MTZ, LISS-C, Estefania X, FAM, URL When: Where: Medications [...] BS twice daily- will bring equipment to [facility] f/ u to update brand Contact prescribing [...] BPH w (more content not included)... Normal [facility] Office/Clinic Noteon 08-21-2024 Urology Office/Clinic [...] 7.4% (PSAD 0.31) MRI of prostate 07/21/23 [facility] - A focal area involving the anterior [...] (R33.9: Retention of urine, unspecified) 06/04/23 - [facility] ER due to chills and dizziness after [...] urinary tract symptoms) MRI of prostate 07/21/23 [facility] - Prostate volume 26 cc. Grossly distended urinary bladder with partially visualized bilateral hydroureter. TALAMANTES is suspected and fol (more content not included)... Normal [facility] Comment on above: Result Comment: Elec tronically Signed By: TOSHIA Rdedy APRN, Estefania Santiago\.br\Date and Time Signed: 08/21/24 10:00 EDT\.br\Electronically Co-Signed [...] methods and specificity. Values obtained with different nitro man's assays cannot be used interchangeably. The methodology used to obtain this result was chemiluminescence using [employer] Access Hybritech PSA reagent and Access Hybritech [...] for this result was chemiluminescence using [employer] PSA reagent. BASIC METABOLIC PANLon 08-14 Anion gap [Moles/Vol] 12 mmol/L Normal 5-15 [facility] Comment on above: Performed By: #### B MP #### [facility] ([id number]) [address], [address] [place] [address] Calcium [Mass/Vol] 9.3 mg/dL Normal 8.5-10.5 [facility] Comment on above: Performed By: #### B MP #### [facility] ([id number]) [address], [address] [place] [address] Chloride [Moles/Vol] 100 mmol/L Normal 98-109 [facility] Comment on above: Performed By: #### B MP #### [facility] ([id number]) [address], [address] [place] [address] CO2 [Moles/Vol] 24 mmol/L Normal 22-32 [facility] Comment on above: Performed By: #### B MP #### [facility] ([id number]) [address], [address] [place] [address] Creatinine [Mass/Vol] 1.35 mg/dL High 0.60-1.30 [facility] Comment on above: Result Comment: METH OD TRACEABLE TO IDMS STANDARD Performed By: #### B MP #### [facility] ([id number]) [address] [place] [address] GFR/1.73 sq M.predicted among non-blacks MDRD (S/P/Bld) [Vol rate/Area] 56 mL/min/{1.73_m2} Low >59 [facility] Comment on above: Result Comment: Reported eGFR is based on the CKD-EPI 2020 equation that does not use a race coefficient. Performed By: #### B MP #### [facility] ([id number]) [address] [place] [address] Glucose [Mass/Vol] 204 mg/dL High 65-99 [facility] Comment on above: Performed By: #### B MP #### [facility] ([id number]) [address] [place] [address] Potassium [Moles/Vol] 4.3 mmol/L Normal 3.5-5.0 [facility] Comment on above: Performed By: #### B MP #### [facility] ([id number]) [address] [place] [address] Sodium [Moles/Vol] 136 mmol/L Normal 134-146 [facility] Comment on above: Performed By: #### B MP #### [facility] ([id number]) [address] [place] [address] Urea nitrogen [Mass/Vol] 18 mg/dL Normal 5-27 [facility] Comment on above: Performed By: #### B #### [facility] ([id number]) [address], [address] [place] [address] Basic metabolic 1998 panelon 08-14-2024 Anion gap [Moles/Vol] 12 mmol/L 5 - 15 mmol/L [facility] Calcium [Mass/Vol] 9.3 mg/dL 8.5 - 10.5 mg/dL [facility] Chloride [Moles/Vol] 100 mmol/L 98 - 109 mmol/L [facility] CO2 [Moles/Vol] 24 mmol/L 22 - 32 mmol/L [facility] Creatine [Mass/Vol] 1.35 mg/dL High 0.60 - 1.30 mg/d L [facility] Comment on above: METHOD TRACEABLE TO IDTN STANDARD GFR/1.73 sq M.predicted among non-blacks MDRD (S/P/Bld) [Vol rate/Area] 56 mL/min/{1.73_m2} Low - PINF [facility] Comment on above: Reported eGFR is based on the CKD-EPI 2020 equation that does not use a race coefficient. PERFORMED AT [address],[place] [address] Glucose [Mass/Vol] 204 mg/dL High 65 - 99 mg/dL [facility] Interpretation and review of laboratory results Abnormal [facility] Potassium [Moles/Vol] 4.3 mmol/L 3.5 - 5.0 mmol /L [facility] Sodium [Moles/Vol] 136 mmol/L 134 - 146 mmol/L [facility] Urea nitrogen [Mass/Vol] 18 mg/dL 5 - 27 mg/dL [facility] Family Medicine Office/Clini c Noteon 08-08-2024 Family [...] Rating Pain Score : 4 Radha Tao Alok 07/09/2024 8:12 EST Hearing and Vision Screening FT FT Whisper Test Comments : patient reports hearing loss. Does not wear hearing aides. Has had hearing checked recently. Vision Screen Comments : Does not wear corrective lens. Had eyes check 2-3 years ago. Radha Tao - 07/09/2024 8:12 EST Advance Directive FT Advance [...] Procedure Minutes: 0 ; Comments: 11/15/2012 8:04 SUZIE Brower RN, Susan left ; Last Reviewed Dt/Tm: 07/09/2024 08:20:31 EST Anesthesia Minutes: 0 ; Procedure Name: Hand tendon repaired LEFT ; Procedure Minutes: 0 ; Comments: 01/13/2023 11:49 EDT - Elida WHIPPLEN, Ruthann L left thumb tendon ; Last Reviewed Dt/Tm: [...] Procedure Minutes: 0 ; Comments: 01/13/2024 8:59 Alicja Lorenzo years ago-- ; Last Reviewed Dt/Tm: 07/09/2024 [...] smoker, quit 2005 (Last Updated: 05/18/2024 12:51:20 UTC by [employer], Generated) Former smoker, quit more than 30 days [...] Pain Lo (more content not included)... Normal [facility] Comment on above: Result Comment: Elec [...] APRN, Estefania Santiago Where: [facility] [address] [address]- Tuesday 8:15 AM EDT With: Nancy Grace MD Where: [address] [address]- Tuesday 8:15 AM EDT With: Nancy Grace MD Where: [address] [address]- Tuesday2025 8:00 AM EST With: Where: [address] [address]- Medications What How Much When Why Instructions [...] BS twice daily- will bring equipment to [facility] f/ u to update brand [...] discomfort t (more content not included)... Normal [facility] Ambulatory Visit Summary Ambulatory Visit Summary [...] APRN, Aurora X Where: [facility] of [address] [place] [address]- Tuesday 8:15 AM EDT With: Nancy Grace MD Where: [address] [address]- Tuesday 8:15 AM EDT With: Nancy Grace MD Where: [address] [address]- Tuesday2025 8:00 AM EST With: Where: [address] [address]- Medications What How Much When Why Instructions New semaglutide (Ozempic 2 mg/ 3 mL (0.25 mg or 0.5 mg dose) subcutaneous solution) 0.25 Milligram Subcutaneous Every week Type 2 diabetes mellitus with hypercholesterolemia BMI 37.0-37.9, adult Obesity (BMI 30-39.9) Former smoker Hypomagnesemia Pickup at [facility]/pharmacy #[id number] Unchanged amlodipine (amLODIPine 5 mg Tab) See [...] a day (in the evening) Pharmacy Information [facility]/pharmacy #[id number]: [address], [place] [id number] [phone] Allergies CeleBREX (Anxiety, Unknown) Problems Ongoing - [...] You ma (more content not included)... Normal [facility] CHEMISTRYOrdered By: SYSTEM SYSTEM on 07-16-2024 Magnesium [Mass/Vol] 0.5 mg/dL Invalid Interpretation Code 1.3 - 2.4 mg/dL [facility] Comment on above: Result Comment: Crit ical Result Verified by Previous Result Critical Result S_M.5 Called to and read back by: NANCY GRACE at: 07/16/2024 18:21:49 by:KENA Family Medicine Office/Clini c Noteon 07-16-2024 Family Medicine [...] The patient has been managing this with [id number] magnesium supplements. He denies any symptoms of [...] qWeek, # 3 mL, Refills(s) 0, Pharmacy: [facility]/pharmacy #[id number], 175.3, cm, 07/16/24 8:18:00 EST, Height/Length Dosing, 114, kg, 07/16/24 8:18:00 EST, Weight Dosing Body Mass Index (BMI) documented 3008F Current tobacco non-user 1036F Depression Screening Negative 3352F Influenza immunization status assessed 1030F Lab Specimen Collect 54914 Magnesium Level Medication list documented in medical [...] qWeek, # 3 mL, Refills(s) 0, Pharmacy: [facility]/pharmacy #[id number], 175.3, cm, 07/16/24 8:18:00 EST, Height/Length Dosing, 114, kg, 07/16/24 8:18:00 EST, Weight Dosing Magnesium Level 3. Obesity (BMI 30-39.9) (E66.9: Obesity, unspecified) Encouraged dietary modifications and physical activity. Consideration for medications that could provide weight loss benefits inclusive to their primary use, such as Ozempic. Ordered: semaglutide, 0.25 mg, SubCutaneous, qWeek, # 3 mL, Refills(s) 0, Pharmacy: [facility]/pharmacy #[id number], 175.3, cm, 07/16/24 8:18:00 EST, Height/Length Dosing, 114, kg, 07/16/24 8:18:00 EST, Weight Dosing Magnesium Level 4. Former smoker (Z87.891: Personal history of nicotine dependence) Reinforced smoking cessation and its benefits on long-term health outcomes. Ordered: semaglutide, 0.25 mg, SubCutaneous, qWeek, # 3 mL, Refills(s) 0, Pharmacy: [facility]/pharmacy #[id number], 175.3, cm, 07/16/24 8:18:00 EST, Height/Length Dosing, 114, kg, 07/16/24 8:18:00 EST, Weight Dosing Magnesium Level 5. Hypomagnesemia (E83.42: Hypomagnesemia) Blood sample required to reassess serum magnesium levels. Depending on results, magnesium supplementation may be adjusted. Ordered: sema (more content not included)... Normal [facility] Comment on above: Result Comment: Elec tronically Signed By: Ruiz REYNOLDS, Nancy Thompson\.br\Date and Time Signed: 07/16/24 08:57 EST Magnesiumon 07-16-2024 Magnesium [Mass/Vol] 0.5 mg/dL Abnormal 1.3-2.4 [facility] Comment on above: Result Comment: Crit ical Result Verified by Previous Result Critical Result S_M.5 Called to and read back by: NANCY GRACE at: 07/16/2024 18:21:49 by:KENA Performed By: #### 2 [id number] #### [facility] [address] [place] [address] Pre-Visit Planningon 025 Pre-Visit Planning Pre-Visit Planning From: Valarie Solis To: Ruiz REYNOLDS, Nancy Thompson; Sent: 07/06/2024 11:24:03 EST Subject: Pre-Visit Planning Due Date/Time: 07/06/2024 11:24:00 EST Caller Name: ALICJA REYES; Caller Number: Sana , Nicole [place] Dr. Grace. During a pre-visit planning chart review, I noted the following documentation in the medical record: Current Problem List: Alcohol abuse uncomplicated, Hypokalemia, Hypomagnesemia, Major depressive disorder recurrent moderate, HTN, and Tachycardia. Current Medication List: amlodipine, lisinopril, magnesium oxide, metoprolol, and potassium chloride. 07/25/2023 MWV: AUDIT Score =5. 12/29/2023 [facility] IP Nephrology Consult Note: Alcoholism: Discussed with him stopping his alcohol use. He states that he would rather than stop drinking alcohol. He currently drinks 6-10 beers per day. Consult case management for rehabilitation. [facility] protocol. 01/05/2024 Office Visit Note: HPI- Still [...] feel free to contact me at extension [phone]. Thank you! Valarie Solis LPN Clinical Channel Process Supervisor [place] [address] Extension: [phone] [email or web address] From: Nancy Grace MD To: Valarie Solis; Sent: 07/09/2024 07:51:01 EST Subject: RE: Pre-Visit Planning Caller Name: ERIC ALICJA D; Caller Number: H , M His alcohol abuse is complicated for electrolyte abnormalities and likely Neuropathy. I do not know how to code that. From: Valarie Solis To: Nancy Grace MD; Sent: 07/13/2024 11:43:18 EST Subject: Pre-Visit Planning Due Date/Time: 07/13/2024 11:42:00 EST Caller Name: ALICJA REYES; Caller Number: H , M Hi Dr. [...] this with him at last visit. Normal [facility] Ambulatory Visit Summaryon 0 07-09-2024 Ambulatory [...] APRN, Estefania Santiago Where: [facility] [address] [place] [address]- Tuesday 8:15 AM EDT With: Nancy Grace MD Where: [facility] [address] [address]- Tuesday 8:15 AM EDT With: Ruiz REYNOLDS, Nancy Thompson Where: [address] [address]- Medications What How Much When Why Instructions [...] 1 Tablets By Mouth Every day Unchanged [facility] Prescription ([facility] DME Prescription) 'Number 1' Glucometer and test strips testing BS twice daily- will bring equipment to [facility] f/ u to update brand [...] for choosing us for your care. Normal [facility] CBC w/ Auto Diffon 5 Basophils/100 WBC (Bld) 0.7 % Normal 0.0-2.0 [facility] Comment on above: Performed By: #### 2 [id number] #### [facility] [address] [place] [address] Basophils/Leukocytes Auto (Bld) [Pure # fraction] 0.0 E9/L Normal 0.0-0.2 [facility] Comment on above: Performed By: #### 2 [id number] #### [facility] [address] [place] [address] Eosinophils (Bld) [#/Vol] 0.2 E9/L Normal 0.0-0.5 [facility] Comment on above: Performed By: #### 2 [id number] #### [facility] [address] [place] [address] Eosinophils/100 WBC (Bld) 3.3 % Normal 0.0-8.0 [facility] Comment on above: Performed By: #### 2 [id number] #### [facility] [address] [place] [address] Erythrocyte distribution width (RBC) [Ratio] 12.9 % Normal 10.9-14.2 [facility] Comment on above: Performed By: #### 2 [id number] #### [facility] [address] [place] [address] Hematocrit (Bld) [Volume fraction] 39.3 % Normal 37.7-49.0 [facility] Comment on above: Performed By: #### 2 [id number] #### [facility] [address] [place] [address] Hemoglobin (Bld) [Mass/Vol] 13.3 g/dL Low 13.5-17.5 [facility] Comment on above: Performed By: #### 2 607335 #### [facility] [address] [place] [address] Lymphocytes (Bld) [#/Vol] 1.4 E9/L Normal 1.0-4.0 [facility] Comment on above: Performed By: #### 2 176796 #### [facility] [address] [place] [address] Lymphocytes/100 WBC (Bld) 21.3 % Normal 14.0-50.0 [facility] Comment on above: Performed By: #### 2 831127 #### [facility] [address] [place] [address] MCH (RBC) [Entitic mass] 33.6 pg Normal 27.0-34.0 [facility] Comment on above: Performed By: #### 2 871197 #### [facility] [address] [place] [address] MCHC (RBC) [Mass/Vol] 33.9 g/dL Normal 31.4-36.0 [facility] Comment on above: Performed By: #### 2 527506 #### [facility] [address] [place] [address] MCV (RBC) [Entitic vol] 99.1 fL Normal 80.0-100.0 [facility] Comment on above: Performed By: #### 2 220592 #### [facility] [address] [place] [address] Monocytes (Bld) [#/Vol] 0.7 E9/L Normal 0.2-1.0 [facility] Comment on above: Performed By: #### 2 930579 #### [facility] [address] [place] [address] Neutrophils (Bld) [#/Vol] 4.1 E9/L Normal 2.0-7.5 [facility] Comment on above: Performed By: #### 2 555117 #### [facility] [address] [place] [address] Neutrophils/100 WBC (Bld) 63.7 % Normal 36.0-75.0 [facility] Comment on above: Performed By: #### 2 586460 #### [facility] [address] [place] [address] Platelet mean volume (Bld) [Entitic vol] 8.0 fL Normal 6.4-10.8 [facility] Comment on above: Performed By: #### 2 046571 #### [facility] [address] [place] [address] Platelets (Bld) [#/Vol] 249.0 E9/L Normal 150.0-500.0 [facility] Comment on above: Performed By: #### 2 707551 #### [facility] [address] [place] [address] RBC (Bld) [#/Vol] 4.0 E12/L Low 4.3-5.9 [facility] Comment on above: Performed By: #### 2 819388 #### [facility] [address] [place] [address] WBC corrected for nucl RBC Auto (Bld) [#/Vol] 6.4 E9/L Normal 4.0-11.0 [facility] Comment on above: Performed By: #### 2 724231 #### [facility] [address] [place] [address] CHEMISTRYOrdered By: SYSTEM SYSTEM on 07-09-2024 Albumin [...] (Bld) [Mass fraction] 8.0 % High <=5.9% [facility] ChemAutoSS CMPon 07-09-2024 Albumin [Mass/Vol] 4.3 g/dL Normal 3.3-5.0 [facility] Comment on above: Performed By: #### 2 012653 #### [facility] [address] [place] [address] Albumin/Globulin (S) [Mass conc ratio] 1.7 Normal 1.1-2.2 [facility] Comment on above: Performed By: #### 2 072674 #### [facility] [address] [place] [address] ALP [Catalytic activity/Vol] 75 Int._Unit/L Normal 21-98 [facility] Comment on above: Performed By: #### 2 280467 #### [facility] [address] [place] [address] ALT No additional P-5'-P [Catalytic activity/Vol] 16 Int._Unit/L Normal 6-46 [facility] Comment on above: Performed By: #### 2 913705 #### [facility] [address] [place] [address] Anion gap [Moles/Vol] 14 mmol/L Normal 6-16 [facility] Comment on above: Performed By: #### 2 787816 #### [facility] [address] [place] [address] AST [Catalytic activity/Vol] 17 Int._Unit/L Normal 5-43 [facility] Comment on above: Performed By: #### 2 739820 #### [facility] [address] [place] [address] Bilirubin [Mass/Vol] 0.9 mg/dL Normal 0.0-1.1 [facility] Comment on above: Performed By: #### 2 189172 #### [facility] [address] [place] [address] Calcium [Mass/Vol] 8.0 mg/dL Low 8.9-11.1 [facility] Comment on above: Performed By: #### 2 992226 #### [facility] [address] [place] [address] Chloride [Moles/Vol] 102 mmol/L Normal 101-111 [facility] Comment on above: Performed By: #### 2 272461 #### [facility] [address] [place] [address] CO2 [Moles/Vol] 27 mmol/L Normal 21-31 [facility] Comment on above: Performed By: #### 2 224235 #### [facility] [address] [place] [address] Creatinine [Mass/Vol] 1.3 mg/dL Normal 0.5-1.3 [facility] Comment on above: Performed By: #### 2 542436 #### [facility] [address] [place] [address] Globulin (S) [Mass/Vol] 2.6 g/dL Normal 1.4-4.0 [facility] Comment on above: Performed By: #### 2 879657 #### [facility] [address] [place] [address] Glucose [Mass/Vol] 291 mg/dL High 55-199 [facility] Comment on above: Performed By: #### 2 067214 #### [facility] [address] [place] [address] Potassium [Moles/Vol] 3.7 mmol/L Normal 3.5-5.3 [facility] Comment on above: Performed By: #### 2 263038 #### [facility] [address] [place] [address] Protein [Mass/Vol] 6.9 g/dL Normal 6.0-7.8 [facility] Comment on above: Performed By: #### 2 729004 #### [facility] [address] [place] [address] Sodium [Moles/Vol] 139 mmol/L Normal 135-145 [facility] Comment on above: Performed By: #### 2 412546 #### [facility] [address] [place] [address] Urea nitrogen [Mass/Vol] 12 mg/dL Normal 5-21 [facility] Comment on above: Performed By: #### 2 719425 #### [facility] [address] [place] [address] Urea nitrogen/Creatinine [Mass ratio] 9 No Units Low 10-20 [facility] Comment on above: Performed By: #### 2 154429 #### [facility] [address] [place] [address] Family Medicine Office/Clini c Noteon 07-09-2024 Family [...] [facility]. 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 He also mentions self-catherization due to a [...] Ratio 5 (more content not included)... Normal [facility] Comment on above: Result Comment: Elec tronically Signed By: Ruiz REYNOLDS, Nancy Thompson\.br\Date and Time Signed: 07/09/24 08:07 EST [...] Normal 4.0 - 11.0 E9/L Remisol Heme [id number] 07-09-2024 HbA1c (Bld) [Mass fraction] 8.0 % High <=5.9 [facility] Comment on above: Performed By: #### 7 [id number] #### [facility] [address] [place] [address] Lipid Panelon 07-09-2024 Cholesterol [Mass/Vol] 112 mg/dL Low 120-200 [facility] Comment on above: Performed By: #### 2 427872 #### [facility] [address] [place] [address] Cholesterol in HDL [Mass/Vol] 41 mg/dL Invalid Interpretation Code [facility] Comment on above: Result Comment: '>= 60 LOW RISK' '<= 40 HIGH RISK' Performed By: #### 2 352236 #### [facility] [address] [place] [address] Cholesterol in LDL [Mass/Vol] 59 mg/dL Normal <=129 [facility] Comment on above: Performed By: #### 2 927656 #### [facility] [address] [place] [address] Cholesterol in VLDL [Mass/Vol] 20 mg/dL Normal 7-40 [facility] Comment on above: Performed By: #### 2 879324 #### [facility] [address] [place] [address] Triglyceride [Mass/Vol] 100 mg/dL Normal <=149 [facility] Comment on above: Performed By: #### 2 596098 #### [facility] [address] [place] [address] Pre-Visit Planningon 025 Pre-Visit Planning Pre-Visit Planning From: Valarie Solis To: Nancy Grace MD; Sent: 07/06/2024 11:32:39 EST Subject: Pre-Visit Planning Due Date/Time: 07/06/2024 11:32:00 EST Caller Name: ALICJA REYES; Caller Number: , W[place] Dr. Grace. During a pre-visit planning chart [...] feel free to contact me at extension [phone]. Thank you! Valarie Solis LPN Clinical Channel Process Supervisor [place] [address] Extension: [phone] [email or web address] From: Nancy Grace MD To: Valarie Solis; Sent: 07/09/2024 09:09:48 EST Subject: RE: Pre-Visit Planning Caller Name: ALICJA REYES; Caller Number: H , M -Type 2 diabetes mellitus with peripheral neuropathy, Yes he has it and we discussed it today at his visit. Normal [facility] Pre-Visit Planning Pre-Visit Planning From: Valarie Solis To: Nancy Grace MD; Sent: 07/06/2024 11:03:26 EST Subject: Pre-Visit Planning Due Date/Time: 07/06/2024 11:03:00 EST Caller Name: ALICJA REYES; Caller Number: H , M Wv Dr. Grace. During a pre-visit planning chart [...] you! Valarie Solis LPN Clinical Documentation Improvement SpecialistKimberly [place] [phone] TEAMS or [email or web address] From: Ruiz REYNOLDS, Nancy Thompson To: Valarie Solis; Sent: 07/09/2024 07:49:46 EST Subject: RE: Pre-Visit Planning Caller Name: ALICJA REYES; Caller Number: , Added Morbid Obesity. Normal [facility] U Microalbon 07-09-2024 Albumin DL <= 20 mg/L (U) [Mass/Vol] 10.5 mg/dL High 0.0-1.9 [facility] Comment on above: Performed By: #### 1 [id number] #### [facility] [address] [place], [place] [id number] eGFRon 07-09-2024 eGFR 59 mL/min/1.73 m2 Normal >=59 [facility] Comment on above: Performed By: #### 1 [id number] #### [facility] [address] [place], [place] [id number] Provider Letteron 07-02-2024 Provider Letter Provider Letter July 02, 2024 ALICJA REYES [address] [place] [phone] : 1955 Dear Alicja , We have [...] attention to this matter. Sincerely, [facility] [address] [place] [address] [facility] EMG 2 Extremitieson 05-22-20 24 [facility] A generalized proces s such as a polyneuropathy which is axonal loss in type and moderate to severe in degree electrically Carpal tunnel syndrome bilaterally, moderate right and mild left, may be overestimated given polyneuropathy Cervical radiculopathy can not be excluded [facility] 11-12 Nerveson 4 [facility] A generalized proces s such as a polyneuropathy which is axonal loss in type and moderate to severe in degree electrically Carpal tunnel syndrome bilaterally, moderate right and mild left, may be overestimated given polyneuropathy Cervical radiculopathy can not be excluded [facility] Ambulatory Visit Summaryon 1 07-19-2023 Ambulatory Visit Summary Ambulatory Visit Summary ALICJA REYES Bharathi :1955 Visit Date:05/18/2024 Ambulatory Visit Instructions Your Diagnosis Former smoker BMI 36.0-36.9,adult Exogenous obesity Your Care Team Attending Physician - MARINO KEARNS CNP Primary Care Physician - Nancy Grace MD This Is Your Medications [facility] Prescription) amlodipine (amLODIPine 5 mg Tab) [...] What to do next Scheduled Follow-Up Appointments Jeffery Feb. 3, 2025 8:00 AM EST With: Where: [facility] [address] [address]- Tuesday 8:15 AM EST With: EMMY REYNOLDS, Bryant Vogel Where: [facility] [place] [address] [place] [address]- Medications What How Much When Instructions Unchanged [...] choosing us for your care. Normal [facility] Medicine Office/Clini c Noteon 05-18-2024 Family Medicine [...] bedtime), # 30 cap(s), Refills(s) 0, Pharmacy: [facility]/pharmacy #[id number], 175.3, cm, 05/18/24 7:58:00 EST, Height/Length Dosing, 112.1, kg, 05/18/24 7:58:00 EST, Weight Dosing EMG Right Lower Extremity (RLE) [facility] External Ambulatory Referral 2. Former smoker (Z87.891: [...] Daily, # 90 cap(s), Refills(s) 0, [facility]: [id number], 175.3, cm, 05/18/24 7:58:00 EST, Height/Length [...] Daily, # 90 cap(s), Refills(s) 0, Pharmacy: [id number], 175.3, cm, 05/18/24 7:58:00 EST, Height/Length [...] No qualifying data available Patient Education Paresthesia, [id number] Problem List/Past Medical History Ongoing Alcohol abuse [...] mg, Oral, (more content not included)... Normal [facility] Comment on above: Result Comment: Elec tronically Signed By: MARINO KEARNS CNP\.br\Date and Time Signed: 05/18/24 08:48 EST Magnesiumon 02-28-2024 Magnesium [Mass/Vol] 0.5 mg/dL Abnormal 1.3-2.4 [facility] Comment on above: Result Comment: Crit ical Result S_M.5 Called to and read back by: NOBLE OLIVAS at: 02/28/2024 15:00:56 by:[email or web address] Critical Result Verified by Repeat Analysis Performed By: #### 2 [id number] #### [facility] [address] [place] [address] CHEMISTRYOrdered By: SYSTEM SYSTEM on 02-22-2024 Albumin [...] 02-22-2024 Albumin [Mass/Vol] 4.1 g/dL Normal 3.3-5.0 [facility] Comment on above: Performed By: #### 1 [id number] #### [facility] [address] [place] [address] Anion gap [Moles/Vol] 15 mmol/L Normal 6-16 [facility] Comment on above: Performed By: #### 1 [id number] #### [facility] [address] [place] [address] Calcium [Mass/Vol] 8.4 mg/dL Low 8.9-11.1 [facility] Comment on above: Performed By: #### 1 [id number] #### [facility] [address] [place] [address] Chloride [Moles/Vol] 101 mmol/L Normal 101-111 [facility] Comment on above: Performed By: #### 1 [id number] #### [facility] [address] [place] [address] CO2 [Moles/Vol] 26 mmol/L Normal 21-31 [facility] Comment on above: Performed By: #### 1 [id number] #### [facility] [address] [place] [address] Creatinine [Mass/Vol] 1.3 mg/dL Normal 0.5-1.3 [facility] Comment on above: Performed By: #### 1 [id number] #### [facility] [address] [place] [address] Glucose [Mass/Vol] 274 mg/dL High 55-199 [facility] Comment on above: Performed By: #### 1 [id number] #### [facility] [address] [place] [address] Phosphate [Mass/Vol] 2.4 mg/dL Normal 1.9-4.6 [facility] Comment on above: Performed By: #### 1 [id number] #### [facility] [address] [place] [address] Potassium [Moles/Vol] 4.1 mmol/L Normal 3.5-5.3 [facility] Comment on above: Performed By: #### 1 [id number] #### [facility] [address] [place] [address] Sodium [Moles/Vol] 138 mmol/L Normal 135-145 [facility] Comment on above: Performed By: #### 1 [id number] #### [facility] [address] [place] [address] Urea nitrogen [Mass/Vol] 14 mg/dL Normal 5-21 [facility] Comment on above: Performed By: #### 1 [id number] #### [facility] [address] [place] [address] Urea nitrogen/Creatinine [Mass ratio] 11 No Units Normal 10-20 [facility] Comment on above: Performed By: #### 1 [id number] #### [facility] [address] [place] [address] eGFRon 02-22-2024 eGFR 59 mL/min/1.73 m2 Normal >=59 [facility] Comment on above: Order Comment: Order added by Discern Expert. Performed By: #### 1 [id number] #### [facility] [address] [place] [address] CHEMISTRYOrdered By: SYSTEM SYSTEM on 01-30-2024 Magnesium [Mass/Vol] 0.5 mg/dL Invalid Interpretation Code 1.3 - 2.4 mg/dL [facility] Chem S Comment on above: Result Comment: Crit ical Result Verified by Repeat Analysis called to Marcin Grace by [id number] at 01/30/2024 19:19:23 EDT Results Verified By Repeat Analysis Magnesiumon 01-30-2024 Magnesium [Mass/Vol] 0.5 mg/dL Abnormal 1.3-2.4 [facility] Comment on above: Result Comment: Crit ical Result Verified by Repeat Analysis called to Marcin Grace by [id number] at 01/30/2024 19:19:23 EDT Results Verified By Repeat Analysis Performed By: #### 2 [id number] #### [facility] [address] [place] [address] Magnesium [Mass/Vol] 0.5 mg/dL Abnormal 1.3-2.4 [facility] Comment on above: Result Comment: Crit ical Result Verified by Repeat Analysis Performed By: #### 2 [id number] #### [facility] [address] [place] [address] [facility] 01-18-20 [facility] Case Information Case Priority: None Programs: -- Referral Source: [employer] Tutor Referral Reason: Care coordination Case Type: Transition [...] 1 Outcome: Left message-voicemail Contact Type: Complex adult care providergeological manager Name: Alicja Castellon Notes: TCM#2- message left for return call. Created By: Alicja Castellon Date: January 03, 2024 Method: Phone call Type: Outbound Duration (min): 12 Outcome: Case discussion Contact Type: real estate services coordinator Contact Name: Alicja Castellon Notes: TCM#1- see tcm note. Created By: Alicja Castellon Date: January 02, 2024 Method: Phone call Type: Outbound Duration (min): 1 Outcome: Left message-voicemail Contact Type: real estate services coordinator Contact Name: Alicja Castellon Notes: TCM#1- left vm for return call. Created By: Alicja Castellon [facility] Ambulatory Visit Summaryon 0 01-13-2024 Ambulatory Visit Summary Ambulatory Visit Summary ALICJA REYES :1955 Visit Date:01/13/2024 Ambulatory Visit Instructions Your Diagnosis HTN (hypertension) Your Care Team Attending Physician - Buster REYNOLDS, Javier Garvin Primary Care Physician - Ruiz REYNOLDS, Nancy Thompson Referring Physician - NONE, XXXX This [...] Appointments Tuesday 8:00 AM EST With: Where: [facility] [address] [address]- Tuesday 8:15 AM EST With: EMMY REYNOLDS, Bryant Vogel Where: [facility] [address] [place] [address]- Medications What How Much When Instructions Unchanged [...] for choosing us for your care. Normal [facility] and Vascular Office/ inic Noteon 01-13-2024 Heart and Vascular Office/Clinic [...] See Instructions (more content not included)... Normal [facility] Comment on above: Result Comment: Elec tronically Signed By: Buster REYNOLDS, Javier Garvin\.br\Date and Time Signed: 01/13/24 09:18 EDT CHEMISTRYOrdered By: C8 [employer] SYSTEM on 01-11-2024 Free PSA [Mass/Vol] 0.3 ng/mL Invalid Interpretation Code [facility] Comment on above: Interpretive Data: T he concentration of free PSA and total PSA determined with assays from different manufacturers can vary due to differences in assay methods and specificity. Values obtained with different nitro man's assays cannot be used interchangeably. The methodology used to obtain this result was chemiluminescence using Ephraim Lazara's Access Hybritech PSA reagent and Access Hybritech [...] using Ephraim Lazara's Access Hybritech PSA reagent. Magnesiumon 01-11-2024 Magnesium [Mass/Vol] 0.9 mg/dL Abnormal 1.3-2.4 [facility] Comment on above: Result Comment: Crit ical Result Verified by Repeat Analysis Critical Result S_M.9 Called to and read back by: DR KATZ at: 01/11/2024 19:10:59 by:GALO Performed By: #### 2 [id number] #### [facility] [address] [place] [address] Ambulatory Visit Summaryon 0 01-10-2024 Ambulatory Visit Summary Ambulatory Visit Summary ALICJA REYES :1955 Visit Date:01/10/2024 Ambulatory Visit Instructions Your Diagnosis Incomplete bladder emptying Hypotonic neurogenic bladder BPH without urinary obstruction Elevated PSA PIN (prostatic intraepithelial neoplasia) Your Care Team Attending Physician - Bryant TAO MD Primary Care Physician - Ruiz REYNOLDS, Nancy Thompson This Is Your Medications List Misc Prescription ([facility] Prescription) acetaminophen (acetaminophen 325 mg Tab) [...] Appointments Tuesday 8:00 AM EDT With: Where: [facility] Medicine [address] [address]- Tuesday 9:00 AM EDT With: Buster REYNOLDS, Javier Garvin Where: [facility] Tuesday 8:00 AM EST With: Where: [address] [address]- Tuesday 8:15 AM EST With: Bryant TAO MD Where: [facility] [address] [place] [address]- You Need to Schedule the Following Appointments Follow Up with Bryant TAO MD, URSimon When: Comments: 6 mos Where: [address] [place] [address]- Medications What How Much When Instructions [...] for choosing us for your care. Osman [facility] Urology Office/Clinic Noteon 01-10-2024 Urology Office/Clinic [...] (R33.9: Retention of urine, unspecified) [facility]iness [...] urinary tract symptoms) MRI of prostate 07/21/23 [facility] - Prostate volume 26 cc. Grossly distended [...] 04/04/23 - 6.1 MRI of prostate 07/21/23 [facility] - A focal area involving the anterior [...] L p (more content not included)... Normal [facility] Comment on above: Result Comment: Elec [...] REYNOLDS, Bryant Vogel Where: [facility] [address] [place] [address]- Tuesday 8:00 AM EDT With: Where: [address] [address]- Tuesday 9:00 AM EDT With: Buster REYNOLDS, Javier Garvin Where: [facility] Tuesday 8:00 AM EST With: Where: [address] [address]- Medications What How Much When Why Instructions [...] us for your care. Normal [facility] Family Medicine Office/Clini c Noteon 01-05-2024 Family Medicine Office/Clinic Note Family Medicine Office/Clinic Note HPI Staff Alicja is a 68 year old male presenting for hospital follow up TCM: Hospital: [facility] Admission date: 12/29/23 Discharge date: 12/30/23 Symptoms the patient presented with: sent by pcp for hypomagnesia Current concerns: doesn't care for Dacia Bañuelos the ORACLE TECHNICAL ARCHITECT she took care of him in the hospital and wanted to keep him a second night and wasn't doing anything that needed him to stay him so they had words History of Present Illness - Here for hospital follow up - NO other concerns - Feeling better - Still drinking 6-12 beers a day - Levaquin made his heart palpate Review of Systems [...] 130-139 mm (more content not included)... 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 (more content not included)... Normal [facility] PTH [place] 01-01-2024 Parathyrin.intact [Mass/Vol] 23 pg/mL Invalid Interpretation Code 15-65 [facility] Comment on above: Result Comment: Perf ormed at: CB [facility] [address] [id number] PhD Malik Fernando Performed By: #### 1 [id number] #### [facility] [address] [place] [address] Urineon 12-31-2023 Bacteria identified Cx Nom (U) Microbiology PROCEDURE: Urine Culture [R1] SOURCE: U CleanCatch BODY SITE: COLLECTED DATE/TIME: 12/29/2023 15:42 EDT RECEIVED DATE/TIME: 12/29/2023 17:12 EDT START DATE/TIME: 12/29/2023 17:12 EDT FREE TEXT SOURCE: EDDA MILLER-BOGDAN, Dacia BATISTAENCOM[facility] RE[facility] HOSP[facility] OF NEW ENGLANDBOGDAN, Dacia FINAL REPORTS Final Report [] Verified [...] Locations R1: This test was performed at: [facility], [address] [place] [address], [address]- , , [facility] Comment on above: Performed By: #### 2 [id number] #### [facility] [address] [place] [address] [facility] [employer] Message Office --- --- --- --- --- --- --- --- --- From: Nancy Ferreira To: ALICJA REYES Sent: 12/31/23 02:30:27 AM EDT Subject: Discharge Summary Ready to View A summary regarding your recent visit is available in the Documents section of your health record. Normal [facility] Miscellaneous-LCon 12-30 Lab Miscellaneous COMMENT Invalid Interpretation Code [facility] Comment on above: Order Comment: Kelsey redd sample, not 24hr collection Urine Result Comment: Test Ordered: [id number] Magnesium, U Magnesium, U 5.1 mg/dL CB Reference Range: Not Estab. Performed at: [facility] [address] [id number] PhD Malik Fernando Performed By: #### 1 [id number] #### [facility] [address] [place] [address] CHEMISTRYOrdered By: Lab ROP User on 12-30-2023 Glucose [Mass/Vol] 168 mg/dL High 55 - 99 mg/dL FTM C POC Subsection Comment on above: Result Comment: Kingston gloria RN/ POC Device SN [id number] 1 Invalid Interpretation Code [facility] POC Subsection POC User ID [id number] 1 Invalid Interpretation Code [facility] POC Subsection POC Username NAVEEN AMANDA Invalid Interpretation Code FT POC Subsection Glucose [Mass/Vol] 150 mg/dL High 55 - 99 mg/dL F[facility] C POC Subsection Comment on above: Result Comment: [place] gloria RN/ POC Device SN [id number] 1 Invalid Interpretation Code [facility] POC Subsection POC User ID [id number] 1 Invalid Interpretation Code [facility] POC Subsection POC Username NAVEEN AMANDA Invalid [...] 12-05 Glucose [Mass/Vol] 168 mg/dL High 55-99 [facility] Comment on above: Result Comment: [place] gloria RN/ Performed By: #### 2 [id number] #### [facility] [address] [place] [address] HEMATOLOGYOrdered By: SYSTEM SYSTEM on 12-30-2023 Basophils/100 [...] 12-30-2023 Inpatient Clinical Summary Inpatient Clinical Summary [place] [address] Clinical Summary Person Information: Name: ALICJA REYES Age: 68 Years : 1955 Sex: Male PCP: Nancy Grace MD Marital Status: Race: White Ethnicity: Non- or Language: Spanish Visit Id: Visit Reason: Abnormal diagnostic test; SENT BY DR GRACE MAGNESIUM IS LOW Speciality: Acuity: Enc Type: Inpatient Med Service: Medical Arrival: 12/29/2023 13:33:35 Discharge: Dispo Type: Admitted as IP to this Hosp Address: [address] [place], [place] [id number] Provider Notes: Diagnosis: 1:Hypomagnesemia; 2:UTI (urinary tract [...] Follow up: With: Address: When: Ramos Euceda [address] [place] [address] Business (1) Comments: Call for followup appointment in [facility] office With: Address: When: Nancy Grace [facility] [place] [address] Business (2) 01/05/2024 7:45 AM Type Location Start [facility] Follow Up w/TCM [facility] 01/05/2024 7:45 AM 01/05/2024 8:05 AM Confirmed URO Office Visit [facility] 01/10/2024 8:15 AM 01/10/2024 8:30 AM Confirmed [facility] 01/13/2024 9:00 AM 01/13/2024 9:15 AM Confirmed Medicare Wellness Subsequent [facility] 07/09/2024 8:00 AM 07/09/2024 9:00 AM Confirmed Patient Education Information: How to Take Your Blood Pressure, [id number]; Form - Blood Pressure Record Sheet; Urinary Tract Infection, Adult, Seop-jf-Xxeu; Hypomagnesemia cyanocobalamin, levofloxacin, lisinopril, magnesium oxide 400 mg Tab Normal [facility] Inpatient Clinical Summary Inpatient Clinical Summary [address] [address] Clinical Summary Person Information: Name: ALICJA REYES Age: 68 Years : 1955 Sex: Male PCP: Nancy Grace MD Marital Status: Race: White Ethnicity: Non- or Language: Spanish Visit Id: Visit Reason: Abnormal diagnostic test; SENT BY DR GRACE MAGNESIUM IS LOW Speciality: Acuity: Enc Type: Inpatient Med Service: Medical Arrival: 12/29/2023 13:33:35 Discharge: Dispo Type: Admitted as IP to this Hosp Address: [address] [place] [id number] Provider Notes: Diagnosis: 1:Hypomagnesemia; 2:UTI (urinary tract [...] Mouth every day. Refills: 6. Misc Prescription ([facility] D[facility] Prescription) Alcohol prep pads Use to test blood sugars daily Dx E11.9. Refills: 3. Misc Prescription ([facility] Prescription) One Touch Ultra 2 glucose meter kit Use to tests sugars daily E11.9. Refills: 0. Misc Prescription ([facility] Prescription) One touch ultra 2 test strips Use to tests sugars once a day Dx E11.9. Refills: 3. Misc Prescription ([facility] Prescription) Soft click lancets Use to [...] Referring Physician: Follow up: With: Address: When: Nancyhalima Grace [facility] [place] [address] Business (2) 01/05/2024 7:45 AM Type Location Start [facility] Follow Up w/TCM [facility] Nam 01/05/2024 7:45 AM 01/05/2024 8:05 AM Confirmed URO Office Visit [facility] ZAIN Casiano 01/10/2024 8:15 AM 01/10/2024 8:30 AM Confirmed Cardiology Follow Up (FT) [facility] 01/13/2024 9:00 AM 01/13/2024 9:15 AM Confirmed Medicare Wellness Subsequent [facility] 07/09/2024 8:00 AM 07/09/2024 9:00 AM Confirmed Patient Education Information: Normal [facility] Inpatient Patient Summaryon 12-30-2023 Inpatient Patient [...] EDT With: Ruiz REYNOLDS, Nancy Thompson Where: [address] [address]- Tuesday 8:15 AM EDT With: EMMY REYNOLDS, Bryant Vogel Where: [facility] [address] [place], [place] [address] [address]- Tuesday 9:00 AM EDT With: Buster REYNOLDS, Javier Garvin Where: [facility] Tuesday 8:00 AM EST With: Where: [address] [id number]- New Follow Up Appointments after Discharge Follow Up with Nancy Grace When: 01/05/2024 07:45 AM EDT Where: [address] [place] [address]- Business (2) Follow Up with Ramos Euceda When: Comments: Call for followup appointment in [facility] Where: [place] [address]- Business (1) Medications What How Much When Why Instructions Next Dose New acetaminophen (acetaminophen 325 mg Tab) 2 Tablets By Mouth Every 6 hours as needed for Pain start as new med New cyanocobalamin (cyanocobalamin 1000 mcg Tab) 1 Tablets By Mouth Every day Pickup at [facility]/pharmacy #[id number] 12/31/23 9am New levofloxacin (Levaquin 500 mg Tab) 1 Tablets By Mouth Every 24 hours Duration: 10 Days Pickup at [facility]/pharmacy #6177 start as new med today New lisinopril (lisinopril 40 mg Tab) 1 Tablets By Mouth Every day Pickup at [facility]/pharmacy #6177 12/31/23 9am New multivitamin (Therapeutic Multiple Vitamin Tab) See instructions Oral Daily Printed Prescription 12/31/23 9am Changed magnesium oxide (magnesium oxide 400 mg Tab) 1 Tablets By Mouth 2 times a day Pickup at [facility]/pharmacy #6177 12/30/23 9pm Unchanged amlodipine (amLODIPine [...] mg Ta (more content not included)... Normal [facility] Inpatient Patient Summary Inpatient Patient Summary [place] [address] Patient Discharge Instructions PERSON INFORMATION Name: ALICJA [...] Follow up: With: Address: When: Ramos Euceda [address] [place] [place] [address] Business (1) Comments: Call for followup appointment in [facility] office With: Address: When: Nancy Grace [address] [place] [address] Business (2) 01/05/2024 7:45 AM In the event that this physician does not participate in your insurance network, please consult with your insurance company to find a nearby participating provider. Type Location Start [facility] Follow Up w/TCM [facility] Nam 01/05/2024 7:45 AM 01/05/2024 8:05 AM Confirmed URO Office Visit [facility] ZAIN Casiano 01/10/2024 8:15 AM 01/10/2024 8:30 AM Confirmed [facility]FT[facility] 01/13/2024 9:00 AM 01/13/2024 9:15 AM Confirmed Medicare Wellness Subsequent [facility] 07/09/2024 8:00 AM 07/09/2024 9:00 AM Confirmed Comment: ERIC Song ROBIN D, have received the attached patient education materials/instruction s and have verbalized understanding: Patient Signature Date Clinican/Nurse Signature Date HERE ARE THE MEDICATION CHANGES THAT OCCURRED DURING YOUR HOSPITAL STAY New Medications [id number], [address], [place] [id number], [phone] cyanocobalamin (cyanocobalamin 1000 mcg Tab) 1 Tablets [...] That Have Changed [id number], [address], [place] [id number], [phone] START: magnesium oxide (magnesium oxide 400 mg [...] Last Dose: (more content not included)... Normal [facility] Inpatient Patient Summary Inpatient Patient Summary [place] [address] Patient Discharge Instructions PERSON INFORMATION Name: ALICJA [...] Follow up: With: Address: When: Nancy Grace [facility] [place] [address] [facility] (2) 01/05/2024 7:45 AM In the event that this physician does not participate in your insurance network, please consult with your insurance company to find a nearby participating provider. Type Location Start [facility] Follow Up w/TCM [facility] 01/05/2024 7:45 AM 01/05/2024 8:05 AM Confirmed URO Office Visit [facility] ZAIN Casiano 01/10/2024 8:15 AM 01/10/2024 8:30 AM Confirmed [facility] 01/13/2024 9:00 AM 01/13/2024 9:15 AM Confirmed Medicare Wellness Subsequent [facility] 07/09/2024 8:00 AM 07/09/2024 9:00 AM [...] EVERY DAY. (more content not included)... Normal [facility] Miscellaneous-LCon 12-29 Test Code 652345 Invalid Interpretation Code [facility] Comment on above: Order Comment: Rando m sample, not 24hr collection Urine Result Comment: Юлия ected test code Performed By: #### 1 [id number] #### [facility] [address] [place] [address] Reference Laboratory Testing Ordered By: Dacia BAÑUELOS on 12-30-2023 Test Code 085816 1 Invalid Interpretation Code [facility] [employer] Comment on above: Result Comment: Юлия ected test code Test Name urine mag Invalid Interpretation Code [facility] [employer] TSH With T4fr Reflexon 12-29 TSH Qn 1.54 m[IU]/L Normal 0.34-5.60 [facility] Comment on above: Performed By: #### 1 [id number] #### [facility] [address] [place] [address] CHEMISTRYOrdered By: Lab ROP User on 12-29-2023 Glucose [Mass/Vol] 170 mg/dL High 55 - 99 mg/dL FTM C POC Subsection POC Device SN [id number] 1 Invalid Interpretation Code [facility] POC Subsection POC User ID [id number] 1 Invalid Interpretation Code [facility] POC Subsection POC Username FAHEEM LUNA Invalid Interpretation Code [facility] POC Subsection CHEMISTRYOrdered By: SYSTEM SYSTEM on [...] Test Name urine mag Invalid Interpretation Code [facility] Comment on above: Order Comment: Kelsey redd sample, not 24hr collection Urine Performed By: #### 1 [id number] #### [facility] [address] [place] [address] Laboratory - Microbiology an d Antimicrobial susceptibilityOrdered By: Amber Jeffries on 12-29-2023 Bacteria identified Cx Nom (U) 75,000 cfu/ml Streptococcus species [facility] URINALYSISOrdered By: SYSTEM SYSTEM on 12-29-2023 Bacteria [...] that meet specific criteria set forth by [facility]. Epithelial cells.squamous Auto (Urine sed) [...] SS Protein Ql (U) Negative Normal Negativemg/dL [facility] UA Auto SS RBC Ql (U) 0-3 graded/HPF Normal 0-3graded/HPF [facility] UA Auto SS Specific gravity (U) [Rel density] 1.009 *NA* (12/29/23 3:42 PM) Invalid Interpretation Code 1.005 - 1.030 [facility] UA Auto SS Urobilinogen (U) [Mass/Vol] Negative Normal Negativemg/dL [facility] UA Auto SS WBC Auto (Urine sed) [#/Area] >75 graded/HPF Invalid Interpretation Code 0-5graded/HPF [facility] UA Auto SS URINALYSISOrdered By: Dacia BAÑUELOS on 12-29-2023 UA Spec Desc Clean Catch (12/29/23 3:42 PM) Normal [facility] UA Auto SS Ambulatory Visit Summaryon 0 12-27-2023 Ambulatory Visit Summary Ambulatory Visit Summary ERICKOERIC Garvin :1955 Visit Date:12/27/2023 Ambulatory Visit Instructions Your [...] Bryant TAO MD Where: [facility] Invalid Interpretation Code 521 [place] [address]- \.br\ Someone Will Contact You Regarding These Appointments\.br\ [facility] External Ambulatory Referral, Nephrology, 12/27/23 8:10:00 EDT, Hypomagnesemia [facility] Ambulatory Visit Summary Ambulatory Visit Summary [...] taking these medications omeprazole (omeprazole 40 mg Taurus-DR) Procedures Performed Arthroscopy, back surgery, Carpal tunnel [...] REYNOLDS, Bryant Vogel Where: [facility] Invalid Interpretation Code [address] [id number] \.br\ Someone Will Contact You Regarding These Appointments\.br\ [facility] [place] [facility] External Ambulatory Referral, Nephrology, 12/27/23 8:10:00 EDT, Hypomagnesemia [facility] BMPon 12-27-2023 Anion gap [Moles/Vol] 14 mmol/L Normal 6-16 [facility] Comment on above: Performed By: #### 2 [id number] #### [facility] [address] [place] [address] Calcium [Mass/Vol] 8.5 mg/dL Low 8.9-11.1 [facility] Comment on above: Performed By: #### 2 [id number] #### [facility] [address] [place] [address] Chloride [Moles/Vol] 104 mmol/L Normal 101-111 [facility] Comment on above: Performed By: #### 2 313226 #### [facility] [address] [place] [address] CO2 [Moles/Vol] 24 mmol/L Normal 21-31 [facility] Comment on above: Performed By: #### 2 599163 #### [facility] [address] [place] [address] Creatinine [Mass/Vol] 1.5 mg/dL High 0.5-1.3 [facility] Comment on above: Performed By: #### 2 149384 #### [facility] [address] [place] [address] Glucose [Mass/Vol] 158 mg/dL Normal 55-199 [facility] Comment on above: Performed By: #### 2 529382 #### [facility] [address] [place] [address] Potassium [Moles/Vol] 4.7 mmol/L Normal 3.5-5.3 [facility] Comment on above: Performed By: #### 2 241049 #### [facility] [address] [place] [address] Sodium [Moles/Vol] 137 mmol/L Normal 135-145 [facility] Comment on above: Performed By: #### 2 890545 #### [facility] [address] [place] [address] Urea nitrogen [Mass/Vol] 19 mg/dL Normal 5-21 [facility] Comment on above: Performed By: #### 2 289378 #### [facility] [address] [place] [address] Urea nitrogen/Creatinine [Mass ratio] 13 No Units Normal 10-20 [facility] Comment on above: Performed By: #### 2 734402 #### [facility] [address] [place] [address] CHEMISTRYOrdered By: SYSTEM SYSTEM on 12-27-2023 Anion [...] back by: DOCTOR DIEGO at: 12/27/2023 20:26:51 by:[email or web address] Potassium [Moles/Vol] 4.7 mmol/L Normal 3.5 - [...] for ER follow up ER followup: Hospital: [place] Visit date: 12/23/23 Symptoms the patient dizziness, fatigue, weakness, critical low magnesium, elevated glucose Current concerns: Ko says you need to refer him to [...] History Ar (more content not included)... Normal [facility] Comment on above: Result Comment: Elec tronically Signed By: Ruiz REYNOLDS, Nancy Thompson\.br\Date and Time Signed: 12/27/23 08:08 EDT Magnesiumon 12-27-2023 Magnesium [Mass/Vol] 0.9 mg/dL Abnormal 1.3-2.4 [facility] Comment on above: Result Comment: Crit ical Result Verified by Repeat Analysis Critical Result S_M.9 Called to and read back by: DOCTOR DIEGO at: 12/27/2023 20:26:51 by:[email or web address] Performed By: #### 2 [id number] #### [facility] [address] [place] [address] eGFRon 12-27-2023 eGFR 50 mL/min/1.73 m2 Low >=59 [facility] Comment on above: Order Comment: Order added by Discern Expert. Performed By: #### 1 [id number] #### [facility] [address] [place] [address] C Urineon 12-24-2023 Bacteria identified Cx Nom [...] Locations R1: This test was performed at: [facility], [address] [place] [address], [address]- , , Normal [facility] Comment on above: Performed By: #### 2 [id number] #### [facility] [address] [place] [address] CMPon 12-23-2023 Albumin [Mass/Vol] 4.4 g/dL Normal 3.3-5.0 [facility] Comment on above: Performed By: #### 2 086873 #### [facility] [address] [place] [address] Albumin/Globulin (S) [Mass conc ratio] 1.5 Normal 1.1-2.2 [facility] Comment on above: Performed By: #### 2 242292 #### [facility] [address] [place] [address] ALP [Catalytic activity/Vol] 62 Int._Unit/L Normal 21-98 [facility] Comment on above: Performed By: #### 2 769912 #### [facility] [address] [place] [address] ALT No additional P-5'-P [Catalytic activity/Vol] 22 Int._Unit/L Normal 6-46 [facility] Comment on above: Performed By: #### 2 874172 #### [facility] [address] [place] [address] AST [Catalytic activity/Vol] 21 Int._Unit/L Normal 5-43 [facility] Comment on above: Performed By: #### 2 427387 #### [facility] [address] [place] [address] Bilirubin [Mass/Vol] 0.9 mg/dL Normal 0.0-1.1 [facility] Comment on above: Performed By: #### 2 642125 #### [facility] [address] [place] [address] Globulin (S) [Mass/Vol] 2.9 g/dL Normal 1.4-4.0 [facility] Comment on above: Performed By: #### 2 420287 #### [facility] [address] [place] [address] Protein [Mass/Vol] 7.3 g/dL Normal 6.0-7.8 [facility] Comment on above: Performed By: #### 2 813363 #### [facility] [address] [place] [address] Magnesiumon 12-23-2023 Magnesium [Mass/Vol] mg/dL Abnormal 1.3-2.4 [facility] Comment on above: Result Comment: Crit ical Result S_MG:<0.5 Called to and read back by: ANGELLA GUERRERO at: 12/23/2023 08:18:07 by:[email or web address] Critical Result Verified by Repeat Analysis Performed By: #### 2 [id number] #### [facility] [address] [place] [address] CBC w/ Auto Diffon 4 Basophils/100 WBC (Bld) 0.7 % Normal 0.0-2.0 [facility] Comment on above: Performed By: #### 2 947210 #### [facility] [address] [place] [address] Basophils/Leukocytes Auto (Bld) [Pure # fraction] 0.1 E9/L Normal 0.0-0.2 [facility] Comment on above: Performed By: #### 2 898394 #### [facility] [address] [place] [address] Eosinophils (Bld) [#/Vol] 0.1 E9/L Normal 0.0-0.5 [facility] Comment on above: Performed By: #### 2 681396 #### [facility] [address] [place] [address] Eosinophils/100 WBC (Bld) 1.5 % Normal 0.0-8.0 [facility] Comment on above: Performed By: #### 2 031618 #### [facility] [address] [place] [address] Erythrocyte distribution width (RBC) [Ratio] 13.3 % Normal 10.9-14.2 [facility] Comment on above: Performed By: #### 2 542685 #### [facility] [address] [place] [address] Hematocrit (Bld) [Volume fraction] 38.5 % Normal 37.7-49.0 [facility] Comment on above: Performed By: #### 2 596976 #### [facility] [address] [place] [address] Hemoglobin (Bld) [Mass/Vol] 13.2 g/dL Low 13.5-17.5 [facility] Comment on above: Performed By: #### 2 954328 #### [facility] [address] [place] [address] Lymphocytes (Bld) [#/Vol] 1.4 E9/L Normal 1.0-4.0 [facility] Comment on above: Performed By: #### 2 833810 #### [facility] [address] [place] [address] Lymphocytes/100 WBC (Bld) 18.7 % Normal 14.0-50.0 [facility] Comment on above: Performed By: #### 2 653934 #### [facility] [address] [place] [address] MCH (RBC) [Entitic mass] 33.5 pg Normal 27.0-34.0 [facility] Comment on above: Performed By: #### 2 869206 #### [facility] [address] [place] [address] MCHC (RBC) [Mass/Vol] 34.3 g/dL Normal 31.4-36.0 [facility] Comment on above: Performed By: #### 2 193813 #### [facility] [address] [place] [address] MCV (RBC) [Entitic vol] 97.5 fL Normal 80.0-100.0 [facility] Comment on above: Performed By: #### 2 410007 #### [facility] [address] [place] [address] Monocytes (Bld) [#/Vol] 0.6 E9/L Normal 0.2-1.0 [facility] Comment on above: Performed By: #### 2 553672 #### [facility] [address] [place] [address] Neutrophils (Bld) [#/Vol] 5.3 E9/L Normal 2.0-7.5 [facility] Comment on above: Performed By: #### 2 291161 #### [facility] [address] [place] [address] Neutrophils/100 WBC (Bld) 70.6 % Normal 36.0-75.0 [facility] Comment on above: Performed By: #### 2 218410 #### [facility] [address] [place] [address] Platelet 246.0 E9/L Normal 150.0-500.0 [facility] Comment on above: Performed By: #### 2 723148 #### [facility] [address] [place] [address] Platelet mean volume (Bld) [Entitic vol] 7.6 fL Normal 6.4-10.8 [facility] Comment on above: Performed By: #### 2 194649 #### [facility] [address] [place] [address] RBC (Bld) [#/Vol] 4.0 E12/L Low 4.3-5.9 [facility] Comment on above: Performed By: #### 2 140793 #### [facility] [address] [place] [address] WBC corrected for nucl RBC Auto (Bld) [#/Vol] 7.4 E9/L Normal 4.0-11.0 [facility] Comment on above: Performed By: #### 2 896549 #### [facility] [address] [place] [address] CHEMISTRYOrdered By: Jaime van on 12-22-2023 Anion [...] Anion gap [Moles/Vol] 19 mmol/L High 6-16 [facility] Comment on above: Performed By: #### 2 618029 #### [facility] [address] [place] [address] Calcium [Mass/Vol] 8.2 mg/dL Low 8.9-11.1 [facility] Comment on above: Performed By: #### 2 190210 #### [facility] [address] [place] [address] Chloride [Moles/Vol] 100 mmol/L Low 101-111 [facility] Comment on above: Performed By: #### 2 497169 #### [facility] [address] [place] [address] CO2 [Moles/Vol] 23 mmol/L Normal 21-31 [facility] Comment on above: Performed By: #### 2 331140 #### [facility] [address] [place] [address] Creatinine [Mass/Vol] 1.6 mg/dL High 0.5-1.3 [facility] Comment on above: Performed By: #### 2 322532 #### [facility] [address] [place] [address] Glucose [Mass/Vol] 255 mg/dL High 55-199 [facility] Comment on above: Performed By: #### 2 023082 #### [facility] [address] [place] [address] Potassium [Moles/Vol] 3.8 mmol/L Normal 3.5-5.3 [facility] Comment on above: Performed By: #### 2 489318 #### [facility] [address] [place] [address] Sodium [Moles/Vol] 138 mmol/L Normal 135-145 [facility] Comment on above: Performed By: #### 2 090146 #### [facility] [address] [place] [address] Urea nitrogen [Mass/Vol] 17 mg/dL Normal 5-21 [facility] Comment on above: Performed By: #### 2 488772 #### [facility] [address] [place] [address] Urea nitrogen/Creatinine [Mass ratio] 11 No Units Normal 10-20 [facility] Comment on above: Performed By: #### 2 786023 #### [facility] [address] [place] [address] Family Medicine Office/Clini c Noteon 12-22-2023 Family Medicine Office/Clinic Note Family Medicine Office/Clinic Note [facility] Staff Alicja is a 68 year [...] day(s), # 14 tab(s), Refills(s) 0, Pharmacy: [facility], 172, cm, 12/22/23 7:41:00 EDT, Height/Length Dosing, 107.8, kg, 12/22/23 7:41:00 EDT, Weight Dosing Urine Culture 2. Vomiting (R11.10: Vomiting, unspecified) Continue Zofran as needed Diet as tolerated Encourage fluids Ordered: ciprofloxacin, 500 mg = 1 tab(s), Oral, q12hr, X 7 day(s), # 14 tab(s), Refills(s) 0, Pharmacy: [facility], 172, cm, 12/22/23 7:41:00 EDT, Height/Length Dosing, 107.8, kg, 12/22/23 7:41:00 EDT, Weight Dosing CBC w/ Auto Diff Comprehensive Metabolic Panel Lab Specimen Collect [id number] Magnesium Level Urnls Dip Stick Auto w/o Microscopy POC 23070 3. Former smoker (Z87.891: Personal history of nicotine dependence) Encouraged to continue as a non-smoker Ordered: Lab Specimen Collect [id number] Urnls Dip Stick Auto w/o Microscopy POC 18231 4. BMI 36.0-36.9,adult (Z68.36: Body mass index [...] at subsequent visits. Ordered: Lab Specimen Collect [id number] Urnls Dip Stick Auto w/o Microscopy POC 98567 Orders: magnesium oxide, 400 mg = 1 [...] moderate Murmur (more content not included)... Normal [facility] Comment on above: Result Comment: Elec tronically Signed By: MARINO KEARNS CNP\.br\Date and Time Signed: 12/22/23 10:28 EDT HEMATOLOGYOrdered [...] 12-22-2023 eGFR 46 mL/min/1.73 m2 Low >=59 [facility] Comment on above: Order Comment: Order added by Discern Expert. Performed By: #### 1 [id number] #### [facility] [address] [place] [address] Coding Summary.on 11-29-2023 Coding Summary. AFQEXxlj52FNx2zJe+PG h lYWQ+QW9XAPLqC17bnDUo sV1fT5NNYCnIXomjKUSXP EcEVvWdxlFtSP2vrXDyDP Ju IC8+IG1iJQZbTmxuxYVkp 7U1uJT2X65hny8wHUfpgC R3VFUoZiMxoaznf7uruKn 6IDcuNmluOyBt HWLijF42VIQ3oX27Jk62a QQhpANal2tcxCu1PbVcGX GjCCU7kZpvNKlwu0CnLGD tC02fxZKop9U4 JCEbaHgawVSkJzVfbXZ4k S0jKIkmhtfsx6ogedpeZu y9ik61zJNvr7Q7cIA7S6V upkT7MWVykAUq EdimoOQZpM0qwdbss7wyn uojPzPcWHClLOe6HRo5IL XraVcnMwRtRR93JBY1ROR tuuQrC6WfCHNd jKpzNmK5l0S2Hb8CG5EQM ageV0XTHFNKLYncoLG+PC 13aw28M9EjMdgsTcn1QNV xXFZ1tPW0pX6g WKSeMHzbc5C1nME2S8Lfc hRkou8mv9wgHVTeOHdeU5 8lpPCrs2U5VHCoyQL0YYX jvKpnZmTuwD77 Oyc+LQJhiYgwp7VfZbnrl 1ykg7iteMz7JtwiZSIyma FplXzgKLB7l0VuOb5aGUD gyHL9vFT6jB0y MkOfZaR1ZNzpM154UbDrp YDoOwcwZ58cO2BsbVR+PH GxEce4KETobAmnCH3eQ5X hZGRpbmctbGVm jGqqQK5sJSUrygvvEYUsh Y3yKKZuW3a3SzBlDrQ0XH soB2EaAQSsetgyMz07zG9 qVlAlSwC0XCah H5EhmtV1DLShmPPtUAfoK NK0Q64jz9D1ASElCHDhYP A2rIS7eV0daWseupgitZC mdDsgdmVydGlj PQdxQKlvJ676ZYAycVzdT kNvZGluZyBEYXRlOiAgMD YvMjUvMjAyNDwvdGQ+PHR sEIB1jGjbBUEw mVQySKaiKh1scDfgvXumH D3jPTLkhzqwHRBlnI6vNQ GbpWNltBjkUB4zUAJhsiv gl802ChPrUUT6 BPRbbEViO7LyaS5zQvWuL MYfDPXsG1LpmXMgQIgpQ5 03AVkoNgW1CVQtouMtM8E sLWFsaWduOiB0 h3C0Zy0Fy5EvjqpcZ2Ejb UUvAcJpJefwKUv5I5VmJl wvdHI+RR35COZjSG05PBu 5TTD3lPtnKNje JMVcP8HmaM1bOyMiCGCxS GRkOyc+PHRhYmxlIHdpZH RoPScxMDAlJyBzdHlsZT0 fYh4sVUZtDGSl fFfhoADhLhKrc8ahHVSeE UedQJ5doDztE5BrbXC8CW Abn6b1Ne07C35dQ9LhfBJ +WLFizCP7qNI7 bW5fKiTzXkY1IOmqH003I iKfzBFwQhltd1njz9knqV z3PrX8XTGntvGvoIruAJQ 3r4BhFa58E21j IHdpZHRoPSIxNSUiIHZhb Gvmri6jtZ4eLx6+PGNvbC Z2dHL6dP7zBxKfBwW0HSd rU548UzHylOOh Tijjg1fkc6bnoYr8IiHnR FNzjrZgmEhwHZM0x2XeMv 79B3MtaYlsp3FdRxq7fm1 0pFAkz7J4pOC4 Q8BuIQYphxednZRdbBqiD J4pBNBcpziiMRHyiB9oUP AxG8g1ZmApIaO5LWycC4O dmiN8XFHriVSo FEXaeQHCrV1repqkw0dez zqhQdJxDZGcSLq9MOs1TU AxsIwxHmHtKLF7FvP2QUN 9kZGypD1ugQhy fygtxY9fHkq+HIH4uSBnf VVFNP7xNfikaWM+PHRkIH B2aXseDIquQHKqqR2bJXK hU5q3PsKtKgV7 GRbcC4BooiA2GPLtbVAeY XZbrHYZvY3dbipoj7pbdl hnDsFsMVNmNPy9ZNf3KUU saWduOiBsZWZ0 PpR5KZH8wZYpxI0jrVidw hrgqP2hZjw+QmlydGggRG L9FUa1O6IuDhi9CACasDy eLK6anDUdEGdh Ky9noPqmdGhqFX4dLWOzn abtg337YeOor7mwFJJqmJ UdIWagBFH8J71hi8C9FOX aBJMkVEL1yMR7 wG9qvBrocphuiRTmhWmrh iAggVelNZqeTRibD596GP UmtIgiQdXbVJs1L9WmTwv 1EYPevDrtHD2b eKWtFJjbCt1luTbxgUjdG J0gLGPeikmkd247WgVmn9 quXLBnoBKcLUcgOWZ5B11 gz9T4OIXeRCVc ZRY3aHK7yC7agHvyrsnbw GVmdDsgdmVydGljYWwtYW fxT670CYFcmQlzOcUoeJi 1L4SxGri8RZVz xHutQR6ozJIvVChzYt9hc KzunWnyRA2rPXCeagnkz2 92TsHwc5mnFVIrsFMaMJa cEYF8H45mh2F6 YBElTNAqKUP6bLE8rX4xm GlnbjogbGVmdDsgdmVydG gfMLvuNNdpZ701IFTfdFr nPlBhdGllbnQg XEebRCf0W9ItUlehnAR+P Q68ZKHmSL64tBSnzWCdd4 cwmYm0MyPhLIXuEIJ1ePg uFKntl1WeJFBg D12vmILyi1L6JDXnqJeha XSgClEyfHS0dI9pKYmasy mga9gnnxsrQbpqg7dops1 2fW56S19jWWrs ZHRoPSIzMCUiIHZhbGlnb v2ltS0bDz3+UWIdoND3gV T4eY9aJBPzRvG3PCkfX98 9InRvcCIvPjxj o6xib4rbpJi7ThM1ADXvd mAymEtaYEY9e3DiSo40O9 9sIHdpZHRoPSIyMCUiIHZ uyHhqqi1bnF9h Ii8+VVIjmSP3nDS0tM4gS yZsQnW4FEawH989RlEknU RzBcuwZ58mX5SquMQ+PHR gBmi2JZBibNun PI7sxHJeQZnvQi1vZZP4R xGkScSoRPjwO3SjBRIfij sagsrdfNO4KPZlCOAjcH8 2Uc0myZkwAIKb fWOInD6jrdpdp4luqbmbR lRcCWUgGPu8FKg1OAMncP feNjMbIJD2KgC8TWK0zME olP2vhZtyvatv vP6kI1ZiRGHfztduVx88b I5uScJhBiL4QLutXgb+TE YHCpWOF2TjBIOLAudHROY 7Y6ZuYxt8FYJi aDalFG5cuIFzZWvpUr5fy XplgYkiFB4xDFJnzcxgHX CyxM9wBHHjeQOffUluCM6 dEUSzrqeat111 BzCzGPW2MFKatYMaE5Vyu L4gJlDnSOWpTIKiZ2FhrU PqPBibC724RPvlEjY1THM jpnUbQ9OcAQYg uQvuYyN2h1L7Nb1fTK6rE U2uTIN2OF92RN25yVNnq4 M7fCY8J8XdFNWvcmaipxr sxVW9BDGpQRXq bI03bLTjXLlvFv6eu4L9j 331AENeBPGlwF98Zc6foV ykGJBqjAQHgO8vqtsif7g vcjogIzAwMDAw PZw3DCc5IECetHtaNmVpZ NT8ErE9XUI4kFWerP4cvZ cqghmzfU5hOyt+NjkgWWV dhqX1T7MlSrb2 ZXYntXdyYS6tlHZhAMixY s6tyNpwlNllPB9jSXRjod rxRLNhkZ1zWJZqrQJcbQn cYI2jHBZvbewf a298TlJnXGC3JIPgcIWtT 1AskI0gOoOeDELlUVZuS8 RegOKaBWikE944UWfdXfU 9VLJnwpYzF8Lj DFYulSzdByT4b8J1Ba6ZP JhrSO82FZ90mEPbs8N7qV Q4X4VrXQKadfqybfyovTK 4MLRyTUHuyG98 nMBqAUcdMk3uc3Z0l234L RFtSSCcxI48Pd6glUsvHY BqrMPCnR5tunwfv4ucfrc gIzAwMDAwMDt0 ZDy9DOUrkSrmLqKhJGV1J oI0OLY5tFQiiI5wuSchmc cevQ3nVyg+O9E4nOE1lOW udDwvdGQ+PC90 ho57E3BuGgboXje1NZTsY PY7tZG3tY5mNBUnGOaqo4 S6fHG6F9JpevAcqk0cn8o dMEDdRZzvA86i xCVeg5B8GSHdpOU1DBPky OhfIdNaqK50Tbt+PGNvbG jlb5FqTnrvo4puv1rvwPs 9IjMwJSIgdmFs fPbpXMI1h2ZwZp79Q82cD HdpZHRoPSIzMCUiIHZhbG rtia8fmF2uLl7+PGNvbCB 0iEB1qA1tUvHe VwK0KTozK838BjQwcKIlQ nfoz1scc3kkrCf0PnMmRG UujqQruQnaROW1i8GnZm7 0Z5NryBvno3Ft Gil6im22uTQqp8E2wAU3C 3BhZGRpbmctbGVmdDogMC 6dAAZcohftFFFkfW2iMBB cL0g3RmEjGiI6 OStcJ5MevzR6DAXbjOKiM PDphKEAdN2uisztv4qtmn eqHtYgHNZzZOo0VPb0BJK saWduOiBsZWZ0 XdM4OQP9mKHhyL5cpEixr cgcdG3gJei+CYq8z5zaxS DrQS2hzMY4KG74VJ98kAY az8A8lVR9R4Fb XFXpnswhhazwbRB8VDVfS BUaeL01Jd4nwCttEz3nVX XgJDS9VUKtaEFyD6OmqJ6 yOiAjMDAwMDAw S7ClmELbYDsaJ450PCitJ hQ0HIPlrgRxN8GkUAUclL dnMvM3u4A5Vi9NFL81AW1 8JR01aPYbs0Q6 wUW5J0OqSLKwvuenouznm PQ9SJGzETHgaK19Wa0ahC qsWf0jNGUqVTQ3XIVmrUP rN6EhnZ9hJuWs VULzBQYqD1QvdJClYXwrH 794ENgnNiE9EMHpgqRvL4 SiNFBrgMeoWnO9j1O1Ne0 OKe55NR68QS26 pUMgn7U4xSV1L2YgXSFfc lfxbqqhqVV6DFMzQIOktR 04Sa1fzZvuCs2zQBDfHKE 7OHMyxSKcK1Ak uR8fHyOtUMWdMTCcO4Nni UDxHMvtI629HKbfYrG0ZB GcauIzY5OaLIIkuRnaBwS 2p2M6Vp6BFQem aoh2R7NqRwfftSL+PC90Y NCvYS17kKBudIOyu7uoiJ d7GnOqWFAnQTB8wXrgRWx iw2DnWUQvD87s yNFbz7C3AKTsk (more content not included)... Normal [facility] IntraOperative Documentson 0 11-29-2023 IntraOperative Documents [id number] .00TIFF Normal [facility] Consent for Procedure/Surger yon 11-28-2023 Consent for Procedure/Surgery [id number]# 1.00TIFF Normal [facility] Consent for Treatmenton 11-05 Consent for Treatment [id number]#1 .00TIFF Normal [facility] Inpatient Patient Summaryon 11-28-2023 Inpatient Patient Summary [place] [id number] Clinical Summary Person Information Name: ALICJA REYES Age: 68 Years : 1955 Sex: Male PCP: Nancy Grace MD Marital Status: Race: White Ethnicity: Non- or Language: Spanish Visit Id: Visit Reason: FEELING OF INCOMPLETE BLADDER EMPTYING AND BPH WITH LUTS Speciality: Acuity: Enc Type: Outpatient Med Service: Surgery Arrival: 11/28/2023 13:21:43 Discharge: Dispo Type: Address: [address] [place] [address] [id number] Provider Notes: Diagnosis: Problems Active Hypertension Feeling [...] Mouth every day. Refills: 6. Misc Prescription ([facility] Prescription) Alcohol prep pads Use to test blood sugars daily Dx E11.9. Refills: 3. Misc Prescription ([facility] Prescription) One Touch Ultra 2 glucose meter kit Use to tests sugars daily E11.9. Refills: 0. Misc Prescription ([facility] Prescription) One touch ultra 2 test strips Use to tests sugars once a day Dx E11.9. Refills: 3. Misc Prescription ([facility] Prescription) Soft click lancets Use to [...] MD Follow up: With: Address: When: [address], [address], [facility] [address] [place] [phone] Business (1) Comments: As we discussed, I [...] [facility] Card[facility] Follow Up (FT) [facility] [place] 12/16/2023 9:00 AM 12/16/2023 9:15 AM Confirmed URO Office Visit [facility] [place] ZAIN Casiano 01/10/2024 8:15 AM 01/10/2024 8:30 AM Confirmed FM Medicare Wellness Subsequent [facility] 07/09/2024 8:00 AM 07/09/2024 (more content not included)... [facility] IntraOperative Documentson 0 11-28-2023 IntraOperative Documents [id number] 1.00TIFF Normal [facility] Main OR Intraoperative Recor don 11-28-2023 Main OR Intraoperative Record IntraOp Document Type FTURO Summary Primary Physician: Bryant TAO MD Finalized Date/Time: 11/28/23 15:54:06 Pt. Name: ALICJA REYES/Sex: 1955 Male Med Rec #: [id number] Physician: Bryant TAO MD Financial #: [id number] Pt. Type: O Room/Bed: / Admit/Disch: 11/28/23 [...] Angie Vogel Role Performed Surgeon - Primary Bending Machine Operator - Primary Scrub - Primary Time In 11/28/23 15:39:00 11/28/23 15:39:00 11/28/23 15:39:00 Time Out 11/28/23 15:55:00 11/28/23 15:55:00 11/28/23 15:55:00 Procedure CYSTOSCOPY LOCAL(.) CYSTOSCOPY LOCAL(.) CYSTOSCOPY LOCAL(.) Comments Last Modified By: Yolande DAVID, Monica Lanier RN, Monica Lanier RN, Monica Vogel 11/28/23 Demi Voegl 11/28/23 Demi Vogel 11/28/23 15:49:34 15:49:34 15:49:34 Surgical Procedures FTURO Entry 1 Procedure Description Procedure CYSTOSCOPY LOCAL Modifiers . Surgeon Description CYSTOSCOPY LOCAL Primary Procedure Yes Primary Surgeon Bryant TAO MD Start 11/28/23 15:45:00 Stop 11/28/23 15:49:00 Anesthesia Type Local Surgical Service Urology Wound Class 2 - Clean-Contaminated Last Modified By: Monica Lanier RN 11/28/23 15:49:33 General Case Data FTURO Pre-Care [...] Out Bryant TAO MD, Verified (If Participants Monica Lanier RN Applicable) Francisco York CST, Kimberly A Time Out Complete 11/28/23 15:44:00 Allergies [...] By: Monica Lanier RN 11/28/23 15:54 [facility] Main OR Preoperative Recordo n 11-28-2023 Main OR Preoperative Record Holding Area Document Type FTURO Summary Primary Physician: Bryant TAO MD Finalized Date/Time: 11/28/23 15:10:28 Pt. Name: ALICJA REYES D.O.B./Sex: 1955 Male Med Rec #: [id number] Physician: Bryant TAO MD Financial #: [id number] Pt. Type: O Room/Bed: / Admit/Disch: 11/28/23 [...] Complaints of Pain: No Skin Integrity Intact, [place], Warm, & Dry Vitals - EU Blood Pressure 170/90 Pulse 77 bpm Respirations 80 br/min SPO2 Last Modified By: Ivania Hager LPN 11/28/23 15:10:23 Finalized By: Ivania Hager LPN Document Signatures Signed By: Ivania Hager LPN 11/28/23 15:10 [facility] Operative Reporton Operative Report Patient: ALICJA REYES Age: 68 years Sex: Male : 1955 Associated Diagnoses: None Author: Bryant TAO MD Procedure Operative Information Details: Date/ Time: 11/28/2023 15:54:00. Pre-Op Dx: Feeling of incomplete bladder emptying ([id number] R39.14, Working, Medical), Hypotonic neurogenic bladder (ZOG01-WS N31.9, Working, Medical), Urinary retention ([id number] R33.9, Working, Medical), BPH with obstruction/lower urinary tract symptoms ([id number]-HM N40.1, Working, Medical). Post-Op Dx: Same. Anesthesia [...] this. He agrees with the plan.. [facility] Comment on above: Result Comment: Elec tronically Signed By: Bryant TAO MD\.br\Date and Time Signed: 11/28/23 15:57 EDT Outpatient Surgery Discharge Instructionon 11-28-2023 Outpatient Surgery Discharge Instruction [id number]# 1.00TIFF Normal [facility] Outpatient Surgery Discharge Instruction [address] [address] Patient Discharge Instructions PERSON INFORMATION [...] Follow up: With: Address: When: Bryant TAO [address], [address], [facility] [address] [place] [id number] [facility] (1) Comments: As we discussed, I would [...] emptying the bladder intermittently. Type Location Start [facility] Cardiology [facility] (FT[facility] [place] 12/16/2023 9:00 AM 12/16/2023 9:15 AM Confirmed URO Office Visit [facility] ZAIN Casiano 01/10/2024 8:15 AM 01/10/2024 8:30 AM Confirmed [facility] 8[facility]00 AM 07/09/2024 9:00 AM Confirmed [...] you have a fever over 100 degrees. IERIC ROBIN D, have received the attached [...] to serve you. Thank you for choosing [facility] Normal [facility] Family Medicine Office/Clini c Noteon 11-01-2023 [...] Comments influe (more content not included)... Normal [facility] Comment on above: Result Comment: Elec tronically Signed By: Ruiz REYNOLDS, Nancy Cordoba.br\Date and Time Signed: 11/01/23 13:00 EDT Patient [...] numbers. This can be done either in Spanish (U.S.) or metric measurements. Note that charts and online BMI calculators are available to help you find your BMI quickly and easily without having to do these calculations yourself. To calculate your BMI in Spanish (U.S.) measurements: 1. Measure your weight in [...] for Disease Control and Prevention: www.cdc.gov ? [place] Heart Association: www.heart.org ? National Heart, Lung, and Blood [place]: www.nhlbi.nih.gov Summary ? Body mass index (BMI) is a number that is calculated from a person's weight and height. ? BMI may help estimate how much of a person's weight is composed of fat. BMI can help identify those who may be at higher risk for certain medical problems. ? BMI can be measured using Spanish measurements or metric measurements. ? BMI charts are used to identify whether you are underweight, normal weight, overweight, or obese. This information is not intended to replace advice given to you by your health care provider. Make sure you discuss any questions you have with your health care provider. Document Revised: 02/13/2020 Document Reviewed: 12/21/2019 [employer] Patient Education ? 2022 [employer] [facility] Consent for Treatmenton 10-04 Consent for Treatment [id number]#1 .00TIFF Normal [facility] Heart and Vascular Office/Cl inic Noteon 10-19-2023 [...] with voice recognition artificial intelligence software, specifically Vyyo, Qminder and or Robert Applebaum MD. Substitutions may have occurred due to the [...] 400 m (more content not included)... Normal [facility] Comment on above: Result Comment: Elec tronically Signed By: James CHRISTIAN, Jacinto Butler\.br\Date and Time Signed: 10/19/23 08:50 EDT Physician Orderon 10-19-2023 Physician Order [id number]# 1.00TIFF [facility] Pathology Noteon 10-17-2023 Pathology Note [id number]#1 .00TIFF [facility] Ambulatory Visit Summaryon 0 09-22-2023 Ambulatory Visit Summary ALICJA REYES :1955 Visit Date:09/22/2023 Ambulatory Visit Instructions Your Diagnosis Elevated PSA PIN (prostatic intraepithelial neoplasia) BPH with urinary obstruction Feeling of incomplete bladder emptying Your Care Team Attending Physician - Bryant TAO MD Primary Care Physician - aNncy Grace MD This Is Your Medications List ciprofloxacin (Cipro [...] Bryant TAO MD Where: [facility] [place] [id number]- \.br\ You Need to Schedule the Following Appointments\.br\ Follow Up with EMMY REYNOLDS, Bryant Vogel, URL When: \.br\ Where:\.br\ [address] [place] [address] 3\.br\ [place] [address]-\.br\ \.br\ Medications\.br\ What How Much When Instructions\.br\ [...] including vitamins, herbs, eye drops, creams, and nspp-lzq-wxgpnaq medicines.\.br\ ? \.br\ Any problems you or [...] you to take them.\.br\ ? \.br\ Taking ibrq-ayq-tyqittz medicines, vitamins, herbs, and supplements.\.br\ Tests\.br\ You [...] \.br\ A medicine to help you relax [facility] Urology Office/Clinic Noteon 09-22-2023 Urology Office/Clinic [...] with voice recognition artificial intelligence software, specifically Vyyo, Qminder and or Robert Applebaum MD. Substitutions may have occurred due to the inherent limitations of voice recognition and artificial intelligence software. 1. Elevated PSA (R97.20: Elevated prostate specific antigen [PSA]) PSA: 06/22/11 - 0.41 11/09/18 - 0.41 01/10/20 - 0.36 02/03/21 - 0.44 07/13/22 - 0.43 04/04/23 - 6.1 MRI of prostate 07/21/23 [facility] - A focal area involving the anterior [...] urinary tract symptoms) MRI of prostate 07/21/23 [facility] - Prostate volume 26 cc. Grossly distended [...] Feeling of incomplete bladder emptying) [facility] to ch[facility] and dizziness [...] BUN/CR, and (more content not included)... Normal [facility] Comment on above: Result Comment: Elec [...] with voice recognition artificial intelligence software, specifically Vyyo, Qminder and or Robert Applebaum MD. Substitutions may have occurred due to the inherent limitations of voice recognition and artificial intelligence software. ATTESTATION: Documentation services were performed after patient or guardian consented to allow Lois Ma to record this visit. SAMANTHA certified legal secretary specialist and provider reviewed before signing. SAMANTHA: [...] cap(s), Oral (more content not included)... Normal [facility] Comment on above: Result Comment: Elec tronically Signed By: Yfn REYNOLDS, Troy Santamaria\.br\Date and Time Signed: 09/14/23 09:16 EDT\.br\Electronically Co-Signed By: Darling Keen\Date and Time Co-Signed: 08/19/23 18:28 EDT Pathology Noteon 09-14-2023 Pathology Note [id number]#1 .00TIFF Normal [facility] Glucose Glucometer (BldC) [M ass/Vol]Ordered By: Bryant Tao on 09-09-2023 Glucose [Mass/Vol] 199 mg/dL [facility] Comment on above: Random Glucose Refer ence Range is dependent on time and content of last meal. Glucose of more than 200 mg/dL in a nonstressed, ambulatory subject supports the diagnosis of Diabetes Mellitus. Glucose Poct Glucometerson 0 09-09-2023 Glucose [Mass/Vol] 199 mg/dL Normal [facility] Comment on above: Result Comment: [place] om Glucose Reference Range is dependent on time and content of last meal. Glucose of more than 200 mg/dL in a nonstressed, ambulatory subject supports the diagnosis of Diabetes Mellitus. PERFORMED BY: [address] [address] PATHOLOGIST MOTOR ANALYST ELVI MCNULTY M.D. Performed By: #### G LULS #### Point of Care testing , Glucose [Mass/Vol] 193 mg/dL Normal [facility] Comment on above: Result Comment: [place] om Glucose Reference Range is dependent on time and content of last meal. Glucose of more than 200 mg/dL in a nonstressed, ambulatory subject supports the diagnosis of Diabetes Mellitus. PERFORMED BY: [address] [place] [address] PATHOLOGIST MOTOR ANALYST ELVI MCNULTY M.D. Performed By: #### G LULS #### Point of Care testing , Kody 09-09-2023 L Specimen: Received: 09/09/23 Status: JUAN Castanedadarin Num: [id number] Spec Type: Surgical Subm Dr: Bryant Tao [...] Location Account Attending Physician Alicja Reyes 68/M [place] [id number] Bryant Tao MD SPEC NUM: RECD: 09/09/23 STATUS: JUAN TOLENTINO NUM: [id number] JUDITH: 09/09/23 DR: Bryant Tao MD ENTERED: 09/09/23 [facility] DR: SPEC TYPE: Surgical [...] Specimen: Received: 09/09/23 Status: JUAN Tolentino Num: [id number] Spec Type: Surgical Subm Dr: Bryant Tao [...] , PIN Cocktail/3 -------- Patient: Alicja Reyes [id number] (Continued) -------- Specimen: [id number] Received: 09/09/23-1347 (Continued) Pathological Diagnosis (Continued) Signed (signature on file) Cy Jansen MD 09/13/23 1537 -------- Specimen: Received: 09/09/23 Status: JUAN Tolentino Num: [id number] Spec Type: Surgical Subm Dr: Bryant Tao [...] , PIN Cocktail/3 -------- Patient: Alicja Reyes [id number] (Continued) -------- Specimen: Received: 09/09/23 (Continued) Pathological [...] inflammation (more content not included)... Normal [facility] Operative Reporton Operative Report [id number] .00TIFF Normal [facility] Progress Note-Physicianon Progress Note-Physician Patient: ALICJA [...] diabetes mellitus with hypercholesterolemia / SNOMED CT 339357997 / Confirmed linked DM with HLD per OP CDI policy. Tachycardia / SNOMED CT 3101029 / Confirmed Right flank pain / SNOMED CT 139354027 / Confirmed Urinary retention / SNOMED CT 614201577 / Confirmed Diabetic nephropathy associated with type 2 diabetes mellitus / SNOMED CT 8869820236 / Confirmed Recurrent UTI / SNOMED CT 061492647 / Confirmed Major depressive disorder, recurrent, moderate / SNOMED CT 442794801 / Confirmed added per 06/10/2023 query response. Elevated PSA / SNOMED CT 9510449337 / Confirmed Prostate cancer screening / SNOMED CT 797495713 / Confirmed Kidney stone / SNOMED CT 754285214 / Confirmed Incomplete bladder emptying / SNOMED CT 488165064 / Confirmed Hypokalemia / SNOMED CT 54534301 / Confirmed Hypercholesterolemia / SNOMED CT 38212226 / Confirmed Murmur / SNOMED CT 986930735 / Confirmed Gastroesophageal reflux disease without esophagitis / ICD-10-CM K21.9 / Confirmed Fatigue / SNOMED CT 459673872 / Confirmed Primary hypertension / SNOMED CT 63482225 / Confirmed Edema / SNOMED CT 164651685 / Confirmed SOB (shortness of breath) on exertion / SNOMED CT 627085108 / Confirmed Dizziness / SNOMED CT 6328788578 / Confirmed Diastolic dysfunction / SNOMED CT 4741030 / Confirmed Hematuria / SNOMED CT 004136659 / Confirmed BPH with urinary obstruction / SNOMED CT 0623061325 / Confirmed Alcohol abuse / SNOMED CT 73239977 / Confirmed Canceled: UTI symptoms / SNOMED CT 107090490 Canceled: Type 2 diabetes mellitus without complication, without long-term current use of insulin / ICD-10-CM E11.9 Canceled: Tachycardia / SNOMED CT 9181390 Canceled: Hospital discharge follow-up / SNOMED CT 5198901186 Canceled: Obesity / SNOMED CT 0314030686 Canceled: Alcohol abuse, in remission / SNOMED CT 051633646 Canceled: Morbid obesity / SNOMED CT 693932191 added per 05/13/2023 query response. Canceled: Urinary frequency / SNOMED CT 715134210 Canceled: Disorder of prostate / SNOMED CT 02695721 Canceled: Alcohol abuse / SNOMED CT 56337664 Histories Procedure history: back surgery. Comments: 11/15/2012 8:03 Susan Howard RN lower back Arthroscopy right knee ([id number]). Comments: 11/15/2012 8:04 Susan Howard RN right hand and elbow surgery LEFT. Comments: 11/15/2012 8:04 Susan Howard RN left Carpal tunnel release LEFT (530391826). Hand tendon repaired LEFT ([id number]). Comments: 01/13/2023 11:49 Ruthann Mathur LPN left thumb tendon Spinal fusion x2 (55715475). Social History Social & Psychosocial Habits Alcohol [...] adequate air exchange. Cardiovascular: Regular rhythm. Plan [place] Society of Anesthesiologists (ASA) physical status classification: Class III. Anesthetic Preoperative Plan: Anesthesia General. [facility] Comment on above: Result Comment: Elec tronically Signed By: Abraham Pitts DO, Juan Butler\.br\Date and Time Signed: 09/02/23 09:03 EDT CHEMISTRYOrdered By: Lab ROP User on 09-01-2023 Glucose [Mass/Vol] 156 mg/dL High 55 - 99 mg/dL [facility] C POC Subsection POC Device SN [id number] Invalid Interpretation Code [facility] POC Subsection POC User ID [id number] 1 Invalid Interpretation Code [facility] POC Subsection POC Username JOSE JIMENEZ Invalid Interpretation Code [facility] POC Subsection Capillary Glucose POCon 08-05 Glucose [Mass/Vol] 156 mg/dL High 55-99 [facility] Comment on above: Performed By: #### 2 [id number] ####[facility] [address] [place] [address] Consent for Procedure/Surger yon 09-01-2023 Consent for Procedure/Surgery [id number]# 1.00TIFF [facility] Consent for Treatmenton 08-05 Consent for Treatment [id number]#1 .00TIFF [facility] H&P Updateon 09-01-2023 H&P Update [id number]# 1.00TIFF [facility] Progress Note-Physicianon Progress Note-Physician Patient: ALICJA [...] and his agree with the plan. Normal [facility] Comment on above: Result Comment: Elec tronically Signed By: EMMY REYNOLDS, Bryant Chamorro.br\Date and Time Signed: 09/01/23 14:46 EDT Physician Orderon 08-22-2023 Physician Order [id number]#1. 00TIFF Normal [facility] U Microalbon 08-18-2023 Albumin DL <= 20 mg/L (U) [Mass/Vol] 7.8 mg/dL High 0.0-1.9 [facility] Comment on above: Performed By: #### 1 [id number] ####[facility] [address] [place] [address] Physician Orderon 08-17-2023 Physician Order [id number]# 1.00TIFF Normal [facility] U Protein/Creat Ratioon 08-04 Protein/Creatinine (U) [Ratio] 49.30 mg/gm Cr Normal .00-200.00 [facility] Comment on above: Performed By: #### 1 [id number] ####[facility] [address] [place] [address] U Creatinine 46.0 mg/dL Invalid Interpretation Code [facility] Comment on above: Performed By: #### 1 [id number] ####[facility] [address] [place] [address] Ur Total Protein 22.7 mg/dL Invalid Interpretation Code [facility] Comment on above: Performed By: #### 1 [id number] ####[facility] [address] [place] [address] Ambulatory Visit Summaryon 0 08-15-2023 Ambulatory Visit [...] Follow-Up Appointments Tuesday 11:45 AM EDT With: Troy Coulter MD Where: [facility] 2023 1:30 PM EDT With: Where: [facility] Surgical Services Tuesday 8:00 AM EST With: Where: [facility] [place] Normal [facility] BMPon 08-15-2023 Anion gap [Moles/Vol] 15 mmol/L Normal 6-16 [facility] Comment on above: Performed By: #### 7 [id number], [id number], [id number] #### [facility] [address] [place] [address] Calcium [Mass/Vol] 8.3 mg/dL Low 8.9-11.1 [facility] Comment on above: Performed By: #### 7 [id number], [id number], [id number] #### [facility] [address] [place] [address] Chloride [Moles/Vol] 101 mmol/L Normal 101-111 [facility] Comment on above: Performed By: #### 7 [id number], [id number], [id number] #### [facility] [address] [place] [address] CO2 [Moles/Vol] 27 mmol/L Normal 21-31 [facility] Comment on above: Performed By: #### 7 [id number], [id number], [id number] #### [facility] [address] [place] [address] Creatinine [Mass/Vol] 1.4 mg/dL High 0.5-1.3 [facility] Comment on above: Performed By: #### 7 [id number], [id number], [id number] #### [facility] [address] [place] [address] Glucose [Mass/Vol] 258 mg/dL High 55-199 [facility] Comment on above: Performed By: #### 7 [id number], [id number], [id number] #### [facility] [address] [place] [address] Potassium [Moles/Vol] 3.6 mmol/L Normal 3.5-5.3 [facility] Comment on above: Performed By: #### 7 [id number], [id number], [id number] #### [facility] [address] [place] [address] Sodium [Moles/Vol] 139 mmol/L Normal 135-145 [facility] Comment on above: Performed By: #### 7 [id number], [id number], [id number] #### [facility] [address] [place] [address] Urea nitrogen [Mass/Vol] 16 mg/dL Normal 5-21 [facility] Comment on above: Performed By: #### 7 [id number], [id number], [id number] #### [facility] [address] [place] [address] Urea nitrogen/Creatinine [Mass ratio] 11 No Units Normal 10-20 [facility] Comment on above: Performed By: #### 7 [id number], [id number], [id number] #### [facility] [address] [place] [address] CHEMISTRYOrdered By: C8 [employer] SYSTEM on 08-15-2023 Anion gap [Moles/Vol] 15 [...] (Bld) [Mass fraction] 7.4 % High <=5.9% [facility] ChemAutoSS Family Medicine Office/Clini c Noteon 08-15-2023 [...] about ordering him a BP unit to [facility]. needs zofran refilled to [facility] also also needs omeprazole refilled has to [...] Weight Dosing (more content not included)... Normal [facility] Comment on above: Result Comment: Elec tronically Signed By: Ruiz REYNOLDS, Nancy Thompson\.br\Date and Time Signed: 08/15/23 07:18 EDT [id number] 08-15-2023 HbA1c (Bld) [Mass fraction] 7.4 % High <=5.9 [facility] Comment on above: Performed By: #### 7 [id number], [id number], [id number] #### [facility] [address] [place] [address] Patient Educationon 08-15-19 Patient Education Nutrition BMI [...] numbers. This can be done either in Spanish (U.S.) or metric measurements. Note that charts and online BMI calculators are available to help you find your BMI quickly and easily without having to do these calculations yourself. To calculate your BMI in Spanish (U.S.) measurements: 1. Measure your weight in [...] for Disease Control and Prevention: www.cdc.gov ? [place] Heart Association: www.heart.org ? National Heart, Lung, and Blood [place]: www.nhlbi.nih.gov Summary ? Body mass index (BMI) is a number that is calculated from a person's weight and height. ? BMI may help estimate how much of a person's weight is composed of fat. BMI can help identify those who may be at higher risk for certain medical problems. ? BMI can be measured using Spanish measurements or metric measurements. ? BMI charts are used to identify whether you are underweight, normal weight, overweight, or obese. This information is not intended to replace advice given to you by your health care provider. Make sure you discuss any questions you have with your health care provider. Document Revised: 02/13/2020 Document Reviewed: 12/21/2019 [employer] Patient Education ? 2022 [employer] Normal [facility] eGFRon 08-15-2023 eGFR 54 mL/min/1.73 m2 Low >=59 [facility] Comment on above: Order Comment: Order added by Discern Expert. Performed By: #### 7 [id number], [id number], [id number] #### [facility] [address] [place] [address] CHEMISTRYOrdered By: SYSTEM SYSTEM on 08-11-2023 Anion [...] 32.1 s Normal 25.1 - 36.5 second(s) [facility] Auto Coag Comment on above: Interpretive Data: P arameter 15 days - 4 weeks 1 - [...] the same coagulation reagent and instrumentation as [facility]. Currently there are no coagulation studies available worldwide for children to 14 days, and no normal ranges. Heparin therapeutic range (represented by Anti-Factor Xa activity of 0.2 - 0.4 U/mL) corresponds to PTT of 56.6 - 109.0 sec. INR Coag (PPP) [Relative time] 1.17 {INR} Invalid Interpretation Code [facility] Auto Coag Comment on above: Interpretive Data: I NR results are specifically intended to assess patients stabilized on long-term Anticoagulation therapy suggested INR s Less Intensive Anticoagulation 2.0 3.0 Conventional Range 3.0 4.5 PT Coag (PPP) [Time] 13.1 s High 9.4 - 1 2.5 second(s) [facility] Auto Coag Comment on above: Interpretive Data: [...] the same coagulation reagent and instrumentation as [facility]. Currently there are no coagulation studies available [...] Creatinine [Mass/Vol] 1.2 mg/dL 0.6-1.[address] [facility] Comment on above: ER/ESD physician is notified/shown all ISTAT results.Critical values may be confirmed by laboratory testing ifdeemed necessary by ER attending doctor. ISTAT XRay CREon 07-21-2023 Creatinine [Mass/Vol] 1.2 mg/dL Normal 0.6-1.3 [facility] Comment on above: Result Comment: ER/E SD physician is notified/shown all ISTAT results. Critical values may be confirmed by laboratory testing if deemed necessary by ER attending doctor. Performed By: #### I SCRE #### [facility] [address] ISTAT GFR > 60.0 Normal [facility] Comment on above: Result Comment: PERF ORMED BY: [place] [address] PATHOLOGIST MOTOR ANALYST ELVI MCNULTY M.D. Performed By: #### I [facility] #### [place] [id number] [facility] MR prostate wo/w conon 07-21 MR prostate wo/w con [facility] Main [place] [address] [place] [address] MRI Report Signed Patient: Alicja Reyes MR#: [id number] : 1955 Acct:[id number] Age/Sex: 68 / M ADM Date: 07/21/23 Loc: MR Room: Type: [facility] Attending Dr: Ramandeep Porter PA-C Copies to: [...] Schultz Jr., D.O.07/21/2023 1:08 PM Dictation Location: [facility]- Transcribed By: [facility] 07/21/23 1308 Dictated By: Ghanshyam Schultz Jr, DO 07/21/23 1304 Signed By: 07/21/23 1308 Normal [facility] No Panel InformationOrdered By: Ramandeep Porter on 07-21-2023 Bedside Estimated GFR (eGFR) > 60.0 [facility] CHEMISTRYOrdered By: C8 [employer] SYSTEM on 06-28-2023 Anion gap [Moles/Vol] 15 [...] 10 - 20 Remisol Chem CHEMISTRYOrdered By: C8 [employer] SYSTEM on 06-13-2023 Anion gap [Moles/Vol] 15 mmol/L Normal 6 - 16 mEq/L R emisol Chem Calcium [Mass/Vol] 7.0 mg/dL Invalid Interpretation Code 8.9 - 11.1 mg/dL [facility] Comment on above: Result Comment: Crit ical Result Verified by Repeat Analysis Critical Result S_CA.0 Called to and read back by: BUNDLE TIER ELI at: 06/13/2023 18:59:55 by:ELI PAYEUR Chloride [Moles/Vol] 100 mmol/L Low 101 - [...] S_K:2.7 Called to and read back by: BUNDLE TIER ELI at: 06/13/2023 18:59:55 by:ELI PAYEUR Sodium [Moles/Vol] 139 mmol/L Normal 135 - [...] g/dL Normal 3.3 - 5.0 gm/dL F [facility] Remisol Albumin/Globulin [Mass ratio] 0.8 {ratio} Low 1.1 - 2.2 FT Remisol ALP [Catalytic activity/Vol] 80 [iU]/d Normal 21 - 98 Int._Unit/L FT Remisol ALT No additional P-5'-P [Catalytic activity/Vol] 19 [iU]/d Normal 6 - 46 Int._Unit/L [facility] Remisol Anion gap [Moles/Vol] 16 mmol/L Normal 6 - 16 mEq/L F C Remisol AST [Catalytic activity/Vol] 19 [iU]/d Normal [...] rate/Area] 59 mL/min/1.73 m2 Normal >=59mL/min/1.73 m2 [facility] Chem S Comment on above: Interpretive Data: [...] 16 mg/dL Normal 5 - 21 mg/dL FT Remisol Urea nitrogen/Creatinine [Mass ratio] 12 mg/mg Normal 10 - 20 FT Remisol CHEMISTRYOrdered By: Isidro mejia on 05-16-2023 HbA1c (Bld) [Mass fraction] 9.6 % High <=5.9% [facility] ChemAutoSS CHEMISTRYOrdered By: SYSTEM SYSTEM on 04-04-2023 [...] for this result was chemiluminescence using [employer]br[employer] PSA reagent. CHEMISTRYOrdered By: SYSTEM [...] rate/Area] 66 mL/min/1.73 m2 Normal >=59mL/min/1.73 m2 [facility] Chem S Globulin (S) [Mass/Vol] 3.6 g/dL [...] - 20 [facility] Remisol CHEMISTRYOrdered By: Isidro Roberts ertolasio on [...] 65.3 % Normal 36.0 - 75.0 % [facility] [facility] HemeAutoSS Neutrophils/Leukocyte s Auto (Bld) [Pure # fraction] 3.6 E9/L Normal 2.0 - 7.5 E9/L [facility] [place] [facility] HemeAutoSS HEMATOLOGYOrdered By: Makenzie Martinez on 01-20-2023 Erythrocyte distribution width (RBC) [Ratio] 12.8 % Normal 10.9 - 14.2 % [facility] Hematocrit (Bld) [Volume fraction] 36.6 % Low 37.7 - 49.0 % [facility] Hemoglobin (Bld) [Mass/Vol] 12.8 g/dL Low 13.5 - 17.5 gm/dL [facility] MCH (RBC) [Entitic mass] 33.7 pg Normal 27.0 - 34.0 pg [facility] [place] [facility] HemeAutoSS MCHC (RBC) [Mass/Vol] 34.9 g/dL Normal 31.4 - 36.0 gm /dL [facility] MCV (RBC) [Entitic vol] 96.4 fL Normal 80.0 - 100.0 fL [facility] Platelet mean volume (Bld) [Entitic vol] 7.6 fL Normal 6.4 - 10.8 fL [facility] [facility] HemeAutoSS Platelets (Bld) [#/Vol] 284.0 E9/L Normal 150.0 - 500.0 E9/L [facility] [facility] HemeAutoSS RBC (Bld) [#/Vol] 3.8 E12/L Low 4.3 - 5.9 E12/L [facility] WBC corrected for nucl RBC Auto (Bld) [#/Vol] 5.5 E9/L Normal 4.0 - 11.0 E9/L [facility] [place] [facility] HemeAutoSS CBC AUTO DIFFon 07-13-2022 BASO # 0.1 103/ul Normal 0.0-0.1 [facility] Comment on above: Performed By: #### C BC #### [facility] [address] [place], [place] [address] Dr. Pilo Jansen Basophils/100 WBC (Bld) 1.0 % Normal 0.2-2.0 [facility] Comment on above: Performed By: #### C BC #### [facility] [address] [place] [address] Dr. Pilo Jansen EO # 0.1 103/ul Normal 0.0-0.7 [facility] Comment on above: Performed By: #### C BC #### [facility] [address] [place] [address] Dr. Pilo Jansen Eosinophils/100 WBC (Bld) 2.1 % Normal 0.9-7.0 [facility] Comment on above: Performed By: #### C BC #### [facility] [address] [place] [address] Dr. Pilo Jansen Erythrocyte distribution width (RBC) [Ratio] 12.0 % Normal 11.0-15.0 [facility] Comment on above: Performed By: #### C BC #### [facility] [address] [place] [address] Dr. Pilo Jansen Hematocrit (Bld) [Volume fraction] 40.7 % Critically low 42.0-54.0 [facility] Comment on above: Performed By: #### C BC #### [facility] [address] [place] [address] Dr. Pilo Jansen Hemoglobin (Bld) [Mass/Vol] 13.4 g/dL Critically low 14.0-18.0 [facility] Comment on above: Performed By: #### C BC #### [facility] [address] [place] [address] Dr. Pilo Jansen IG # 0.02 10e3/ul Normal 0.00-0.03 [facility] Comment on above: Performed By: #### C BC #### [facility] [address] [place] [address] Dr. Pilo Jansen IG % 0.4 % Normal 0.0-0.5 [facility] Comment on above: Performed By: #### C BC #### [facility] [address] [place] [address] Dr. Pilo Jansen LYMPH # 1.4 103/ul Normal 1.2-3.8 [facility] Comment on above: Performed By: #### C BC #### [facility] [address] [place] [address] Dr. Pilo Jansen Lymphocytes/100 WBC (Bld) 26.1 % Normal 20.5-60.0 [facility] Comment on above: Performed By: #### C BC #### [facility] [address] [place] [address] Dr. Pilo Jansen MANUAL DIFF REQ NO Normal [facility] Comment on above: Performed By: #### C BC #### [facility] [address] [place] [address] Dr. Pilo Jansen MCH (RBC) [Entitic mass] 33.2 pg Normal 25.9-34.0 [facility] Comment on above: Performed By: #### C BC #### [facility] [address] [place] [address] Dr. Pilo Jansen MCHC (RBC) [Mass/Vol] 32.9 g/dL Normal 29.9-35.2 [facility] Comment on above: Performed By: #### C BC #### [facility] [address] [place] [address] Dr. Pilo Jansen MCV (RBC) [Entitic vol] 100.7 fL Critically high 80.0-94.0 [facility] Comment on above: Performed By: #### C BC #### [facility] [address] [place] [address] Dr. Pilo Jansen MONO # 0.5 103/ul Normal 0.3-0.8 [facility] Comment on above: Performed By: #### C BC #### [facility] [address] [place] [address] Dr. Pilo Jansen Monocytes/100 WBC (Bld) 9.6 % Normal 1.7-12.0 [facility] Comment on above: Performed By: #### C BC #### [facility] [address] [place] [address] Dr. Pilo Jansen NEUT # 3.2 103/ul Normal 1.4-6.5 [facility] Comment on above: Performed By: #### C BC #### [facility] [address] [place] [address] Dr. Pilo Jansen Neutrophils/100 WBC (Bld) 60.8 % Normal 43.0-75.0 [facility] Comment on above: Performed By: #### C BC #### [facility] [address] [place] [address] Dr. Pilo Jansen Platelet mean volume (Bld) [Entitic vol] 9.3 fL Critically low 9.5-13.5 [facility] Comment on above: Performed By: #### C BC #### [facility] [address] [place] [address] Dr. Pilo Jansen PLT 204 103/ul Normal 150-450 [facility] Comment on above: Performed By: #### C BC #### [facility] [address] [place] [address] Dr. Pilo Jansen RBC 4.04 106/ul Critically low 4.70-6.10 [facility] Comment on above: Performed By: #### C BC #### [facility] [address] [place] [address] Dr. Pilo Jansen WBC 5.2 103/ul Normal 4.0-11.0 [facility] Comment on above: Performed By: #### C BC #### [facility] [address] [place] [address] Dr. Pilo Jansen GLYCOHEMOGLOBIN A1Con 2022 ADA RECOMMENDATION SEE BELOW Normal [facility] Comment on above: Result Comment: ADA RECOMMENDED LIMIT 4.0 - 6.0 ADA THERAPEUTIC TARGET < 7.0 ACTION SUGGESTED > 7.0 Performed By: #### A 1C #### [facility] [address] [place] [address] Dr. Pilo Jansen Glucose [Mass/Vol] 189 mg/dL Normal [facility] Comment on above: Performed By: #### A 1C #### [facility] [address] [place] [address] Dr. Pilo Jansen HbA1c (Bld) [Mass fraction] 8.2 % Critically high 4.5-6.2 [facility] Comment on above: Performed By: #### A 1C #### [facility] [address] [place] [address] Dr. Pilo Jansen LIPID PROFILEon 07-13-2022 CHOL-HDL RATIO NORM SEE BELOW Normal [facility] Comment on above: Result Comment: 3.3 - 4.4 LOW RISK 4.4 - 7.1 AVERAGE RISK 7.1 - 11.0 MODERATE RISK >11.0 HIGH RISK Performed By: #### L IPID, CMP #### [facility] [address] [place] [address] [address] Pilo Jansen Cholesterol [Mass/Vol] 157 mg/dL Normal <=200 [facility] Comment on above: Performed By: #### L IPID, CMP #### [facility] [address] [place] [address] [address] Pilo Jansen Cholesterol in HDL [Mass/Vol] 53 mg/dL Normal 40-60 [facility] Comment on above: Performed By: #### L IPID, CMP #### [facility] [address] [place] [address] [address] Pilo Jansen Cholesterol in LDL [Mass/Vol] 81.8 mg/dL Normal [facility] Comment on above: Performed By: #### L IPID, CMP #### [facility] [address] [place] [address] [address] Pilo Jansen Cholesterol.total/Cho lesterol in HDL [Mass ratio] 3.0 {ratio} Normal [facility] Comment on above: Performed By: #### L IPID, CMP #### [facility] [address] [place] [address] [address] Pilo Jansen HDL NORMAL > or = 60 mg/dl - LO W CARDIOVASCULAR RISK <40 mg/dl - HIGH CARDIOVASCULAR RISK Normal [facility] Comment on above: Performed By: #### L IPID, CMP #### [facility] [address] [place] [address] [address] Pilo Jansen LDL CALC NORMAL SEE BELOW Normal [facility] Comment on above: Result Comment: <100 mg/dl OPTIMAL 100 - 129 mg/dl NEAR OR ABOVE OPTIMAL 130 - 159 mg/dl BORDERLINE HIGH 160 - 189 mg/dl HIGH >190 mg/dl VERY HIGH Performed By: #### L IPID, CMP #### [facility] [address] [place] [address] Dr. Pilo Jansen Triglyceride [Mass/Vol] 111 mg/dL Normal <=150 [facility] Comment on above: Performed By: #### L IPID, CMP #### [facility] [address] [place] [address] Dr. Pilo Jansen VLDL CALC 22.2 mg/dL Normal [facility] Comment on above: Performed By: #### L IPID, CMP #### [facility] [address] [place] [address] Dr. Pilo Jansen PROF 14(COMP METB)on 023 Albumin [Mass/Vol] 3.9 g/dL Normal 3.4-5.0 [facility] Comment on above: Performed By: #### L IPID, CMP #### [facility] [address] [place] [address] Dr. Pilo Jansen Albumin/Globulin [Mass ratio] 1.1 {ratio} Normal [facility] Comment on above: Performed By: #### L IPID, CMP #### [facility] [address] [place] [address] Dr. Pilo Jansen ALP [Catalytic activity/Vol] 81 U/L Normal 46-116 [facility] Comment on above: Performed By: #### L IPID, CMP #### [facility] [address] [place] [address] Dr. Pilo Jansen ALT [Catalytic activity/Vol] 28 U/L Normal 16-63 [facility] Comment on above: Performed By: #### L IPID, CMP #### [facility] [address] [place] [address] Dr. Pilo Jansen Anion gap [Moles/Vol] 13.6 mmol/L Normal [facility] Comment on above: Performed By: #### L IPID, CMP #### [facility] [address] [place] [address] Dr. Pilo Jansen AST [Catalytic activity/Vol] 23 U/L Normal 15-37 [facility] Comment on above: Performed By: #### L IPID, CMP #### [facility] [address] [place] [address] [address] Pilo Jansen Bilirubin [Mass/Vol] 0.8 mg/dL Normal 0.2-1.0 [facility] Comment on above: Performed By: #### L IPID, CMP #### [facility] [address] [place] [address] Dr. Pilo Jansen Calcium [Mass/Vol] 9.3 mg/dL Normal 8.5-10.1 [facility] Comment on above: Performed By: #### L IPID, CMP #### [facility] [address] [place] [address] Dr. Pilo Jansen Chloride [Moles/Vol] 101 mmol/L Normal 98-107 [facility] Comment on above: Performed By: #### L IPID, CMP #### [facility] [address] [place] [address] Dr. Pilo Jansen CO2 [Moles/Vol] 29.7 mmol/L Normal 21.0-32.0 [facility] Comment on above: Performed By: #### L IPID, CMP #### [facility] [address] [place] [address] Dr. Pilo Jansen Creatinine [Mass/Vol] 0.86 mg/dL Normal 0.70-1.30 [facility] Comment on above: Performed By: #### L IPID, CMP #### [facility] [address] [place] [address] Dr. Pilo Jansen EGFR-AF KENYAN >60 Normal >=60 [facility] Comment on above: Performed By: #### L IPID, CMP #### [facility] [address] [place] [address] Dr. Pilo Jansen EGFR-NON AF KENYAN >60 Normal >=60 [facility] Comment on above: Performed By: #### L IPID, CMP #### [facility] [address] [place] [address] Dr. Pilo Jansen Globulin (S) [Mass/Vol] 3.7 g/dL Normal [facility] Comment on above: Performed By: #### L IPID, CMP #### [facility] [address] [place] [address] [address] Pilo Jansen Glucose [Mass/Vol] 186 mg/dL Critically high 74-106 [facility] Comment on above: Performed By: #### L IPID, CMP #### [facility] [address] [place] [address] Dr. Pilo Jansen Potassium [Moles/Vol] 4.3 mmol/L Normal 3.5-5.1 [facility] Comment on above: Performed By: #### L IPID, CMP #### [facility] [address] [place] [address] Dr. Pilo Jansen Protein [Mass/Vol] 7.6 g/dL Normal 6.4-8.2 [facility] Comment on above: Performed By: #### L IPID, CMP #### [facility] [address] [place] [address] Dr. Pilo Jansen Sodium [Moles/Vol] 140 mmol/L Normal 136-145 [facility] Comment on above: Performed By: #### L IPID, CMP #### [facility] [address] [place] [address] [address] Pilo Jansen Urea nitrogen [Mass/Vol] 10.0 mg/dL Normal 7.0-18.0 [facility] Comment on above: Performed By: #### L IPID, CMP #### [facility] [address] [place] [address] Dr. Pilo Jansen Urea nitrogen/Creatinine [Mass ratio] 11.6 mg/mg Normal [facility] Comment on above: Performed By: #### L IPID, CMP #### [facility] [address] [place] [address] Dr. Pilo Jansen Vital Signs Date Time Vital Sign Value Performing Clinician Nicholas [email or web address] 08-14-2024 14:01-0400 Body height 175.3 cm Chloe WORLEY Work Phone: [facility] 08-14-2024 14:01-0400 Body mass index (BMI) [Ratio] 37.36 kg/m2 Chloe WORLEY Work Phone: [facility] 08-14-2024 14:01-0400 Body weight 114.76 kg Chloe WORLEY Work Phone: [facility] 01-13-2024 08:53-0400 Blood Pressure Location Javier Kirnus [facility] 01-13-2024 08:53-0400 Diastolic blood pressure 78 mm[Hg] Javier Kirnus [facility] 01-13-2024 08:53-0400 Heart rate 79 /min Javier Kirnus [facility] 01-13-2024 08:53-0400 Respiratory rate 18 /min Javier Kirnus [facility] 01-13-2024 08:53-0400 SaO2% (BldA) [Mass fraction] 99 % Javier Kirnus [facility] 01-13-2024 08:53-0400 Systolic blood pressure 138 mm[Hg] Javier Kirnus [facility] 01-10-2024 08:19-0400 Blood Pressure Location Bryant EMMY [facility] 01-10-2024 08:19-0400 Diastolic blood pressure 74 mm[Hg] Bryant TAO [facility] 01-10-2024 08:19-0400 Heart rate 94 /min Bryant EMMY [facility] 01-10-2024 08:19-0400 Systolic blood pressure 138 mm[Hg] Bryant TAO [facility] 12-30-2023 14:00-0400 Hourly Rounding Artemio Olivares [facility] 12-30-2023 14:00-0400 Promise to Return Artemio Marshall [facility] 12-30-2023 13:00-0400 Hourly Rounding Artemio Marshall [facility] 12-30-2023 13:00-0400 Promise to Return Artemio Marshall [facility] 12-30-2023 12:34-0400 Diastolic blood pressure 100 mm[Hg] Artemio Marshall [facility] 12-30-2023 12:34-0400 Systolic blood pressure 161 mm[Hg] Artemio Marshall [facility] 12-30-2023 12:00-0400 Hourly Rounding Artemio Roer [facility] 12-30-2023 12:00-0400 Promise to Return Artemio Leroycker [facility] 12-30-2023 11:50-0400 Heart rate 104 /min Artemio Leroycker [facility] 12-30-2023 11:50-0400 SaO2% (BldA) [Mass fraction] 98 % Artemio Leroycker [facility] 12-30-2023 11:45-0400 Body temperature 97.7 [degF] Artemio Leroycker [facility] 12-30-2023 11:45-0400 Diastolic blood pressure 100 mm[Hg] Artemio Marshall [facility] 12-30-2023 11:45-0400 Mean blood pressure 120 mm[Hg] Artemio Marshall [facility] 12-30-2023 11:45-0400 Systolic blood pressure 161 mm[Hg] Artemio Marshall [facility] 12-30-2023 08:00-0400 Blood Pressure Location Artemio Olivares [facility] 12-30-2023 08:00-0400 Body temperature 98.6 [degF] Artemio Olivares [facility] 12-30-2023 08:00-0400 Diastolic blood pressure 91 mm[Hg] Artemio Roer [facility] 12-30-2023 08:00-0400 Heart rate 100 /min Artemio Leroycker [facility] 12-30-2023 08:00-0400 Systolic blood pressure 173 mm[Hg] Artemio Olivares [facility] 12-30-2023 04:00-0400 Heart rate 74 /min Artemio Roer [facility] 12-30-2023 03:39-0400 Heart rate 75 /min Artemio Leroycker [facility] 12-30-2023 03:39-0400 SaO2% (BldA) [Mass fraction] 97 % Artemio Olivares [facility] 12-30-2023 03:39-0400 Body temperature 97.52 [degF] Artemio Roer [facility] 12-30-2023 03:39-0400 Mean blood pressure 101 mm[Hg] Artemio Roer [facility] 12-29-2023 21:20-0400 Body temperature 97.16 [degF] Artemio Roer [facility] 12-29-2023 21:18-0400 Mean blood pressure 121 mm[Hg] Artemio Roer [facility] 12-29-2023 20:00-0400 Mean blood pressure 106 mm[Hg] Artemio Roer [facility] 12-29-2023 16:57-0400 Blood Pressure Location Artemio Roer [facility] 12-29-2023 16:57-0400 Body temperature 98.42 [degF] Artemio Roer [facility] 12-29-2023 16:00-0400 Mean blood pressure 118 mm[Hg] Artemio Roer [facility] 12-29-2023 16:00-0400 Respiratory rate 20 /min Artemio Roer [facility] 12-29-2023 15:00-0400 Mean blood pressure 138 mm[Hg] Artemio Roer [facility] 12-29-2023 15:00-0400 Respiratory rate 14 /min Artemio Roer [facility] 12-29-2023 14:07-0400 Respiratory rate 23 /min Artemio Olivares [facility] 12-29-2023 13:50-0400 Body temperature 97.88 [degF] Artemio Olivares [facility] 12-29-2023 13:50-0400 Respiratory rate 18 /min Artemio Olivares [facility] 10-19-2023 08:26-0400 Diastolic blood pressure 88 mm[Hg] Jacinto Ramirez [facility] 10-19-2023 08:26-0400 Mean blood pressure 111 mm[Hg] Jacinto Ramirez [facility] 10-19-2023 08:26-0400 Systolic blood pressure 158 mm[Hg] Jacinto Ramirez [facility] 10-19-2023 08:12-0400 Blood Pressure Location Jacinto Ramirez [facility] 10-19-2023 08:12-0400 Diastolic blood pressure 84 mm[Hg] Jacinto Ramirez [facility] 10-19-2023 08:12-0400 Heart rate 94 /min Jacinto Ramirez [facility] 10-19-2023 08:12-0400 SaO2% (BldA) [Mass fraction] 98 % Jacinto Ramirez [facility] 10-19-2023 08:12-0400 Systolic blood pressure 168 mm[Hg] Jacinto Ramirez [facility] 09-22-2023 12:35-0400 Blood Pressure Location Bryant TAO [facility] 09-22-2023 12:35-0400 Body temperature 97.16 [degF] Bryant TAO [facility] 09-22-2023 12:35-0400 Diastolic blood pressure 84 mm[Hg] Bryant TAO [facility] 09-22-2023 12:35-0400 Heart rate 84 /min Bryant TAO [facility] 09-22-2023 12:35-0400 Systolic blood pressure 136 mm[Hg] Bryant TAO [facility] 09-09-2023 14:25-0400 Diastolic blood pressure 79 mm[Hg] MD Nancy Grace Work Phone: [facility] 09-09-2023 14:25-0400 Heart rate 85 /min MD Nancy Grace Work Phone: [facility] 09-09-2023 14:25-0400 Respiratory rate 16 /min MD Nancy Grace Work Phone: [facility] 09-09-2023 14:25-0400 SaO2% (BldA) [Mass fraction] 99 % MD Nancy Grace Work Phone: [facility] 09-09-2023 14:25-0400 Systolic blood pressure 131 mm[Hg] MD Nancy Grace Work Phone: [facility] 09-09-2023 13:40-0400 Inhaled oxygen flow rate 8 L/min MD Nancy Grace Work Phone: [facility] 09-09-2023 12:40-0400 Body height 175.26 cm MD Nancy Grace Work Phone: [facility] 09-09-2023 12:40-0400 Body mass index (BMI) [Ratio] 34.1 kg/m2 MD Nancy Grace Work Phone: [facility] 09-09-2023 12:40-0400 Body weight 104.77 kg MD Nancy Grace Work Phone: [facility] 09-09-2023 11:49-0400 Body temperature 98.8 [degF] MD Nancy Grace Work Phone: [facility] 09-01-2023 11:42-0400 Diastolic blood pressure 98 mm[Hg] Bryant COOK [facility] 09-01-2023 11:42-0400 Systolic blood pressure 170 mm[Hg] Bryant COOK [facility] 09-01-2023 11:40-0400 Diastolic blood pressure 99 mm[Hg] Bryant COOK [facility] 09-01-2023 11:40-0400 Systolic blood pressure 190 mm[Hg] Bryant COOK [facility] 09-01-2023 11:08-0400 Diastolic blood pressure 102 mm[Hg] Bryant COOK [facility] 09-01-2023 11:08-0400 Systolic blood pressure 178 mm[Hg] Bryant TAO [facility] 09-01-2023 10:50-0400 Heart rate 96 /min Bryant TAO [facility] 09-01-2023 10:23-0400 Blood Pressure Location Bryant TAO [facility] 09-01-2023 10:23-0400 Heart rate 108 /min Bryant TAO [facility] 09-01-2023 10:23-0400 Mean blood pressure 147 mm[Hg] Bryant TAO [facility] 09-01-2023 10:22-0400 Heart rate 108 /min Bryant TAO [facility] 09-01-2023 10:22-0400 SaO2% (BldA) [Mass fraction] 98 % Bryant TAO [facility] 09-01-2023 10:22-0400 Blood Pressure Location Bryant TAO [facility] 09-01-2023 10:22-0400 Mean blood pressure 150 mm[Hg] Bryant TAO [facility] 09-01-2023 10:21-0400 Respiratory rate 20 /min Bryant TAO [facility] 09-01-2023 10:21-0400 Body temperature 97.7 [degF] Bryant TAO [facility] 08-19-2023 11:59-0400 Diastolic blood pressure 98 mm[Hg] Troy Coulter [facility] 08-19-2023 11:59-0400 Mean blood pressure 125 mm[Hg] Troy Coulter [facility] 08-19-2023 11:59-0400 Systolic blood pressure 180 mm[Hg] Troy Warrenerson [facility] 08-19-2023 11:52-0400 Diastolic blood pressure 100 mm[Hg] Troy Coulter [facility] 08-19-2023 11:52-0400 Heart rate 106 /min Troy Coulter [facility] [place] 08-19-2023 11:52-0400 SaO2% (BldA) [Mass fraction] 97 % Troy Coulter [facility] 08-19-2023 11:52-0400 Systolic blood pressure 170 mm[Hg] Troy Coulter [facility] [place] 08-11-2023 09:41-0500 Diastolic blood pressure 96 mm[Hg] Bryant TAO [facility] [place] 08-11-2023 09:41-0500 Heart rate 84 /min Bryant TAO [facility] [place] 08-11-2023 09:41-0500 Mean blood pressure 126 mm[Hg] Bryant COOK [facility] [place] 08-11-2023 09:41-0500 Systolic blood pressure 186 mm[Hg] Bryant COOK [facility] [place] 08-11-2023 09:41-0500 Heart rate 88 /min Bryant COOK [facility] [place] 08-11-2023 09:41-0500 SaO2% (BldA) [Mass fraction] 99 % Bryant COOK [facility] [place] 08-11-2023 09:40-0500 Diastolic blood pressure 95 mm[Hg] Bryant COOK [facility] [place] 08-11-2023 09:40-0500 Mean blood pressure 127 mm[Hg] Bryant TAO [facility] [place] 08-11-2023 09:40-0500 Systolic blood pressure 191 mm[Hg] Bryant TAO [facility] [place] 08-11-2023 09:40-0500 Respiratory rate 20 /min Bryant TAO [facility] [place] 07-27-2023 11:03-0500 Blood Pressure Location RAMANDEEP PORTER [facility] 07-27-2023 11:03-0500 Diastolic blood pressure 76 mm[Hg] RAMANDEEP PORTER [facility] 07-27-2023 11:03-0500 Heart rate 84 /min RAMANDEEP PORTER [facility] 07-27-2023 11:03-0500 Systolic blood pressure 132 mm[Hg] RAMANDEEP PORTER [facility] 07-21-2023 10:06-0500 Body height 175.26 cm MD Nancy Grace Work Phone: [facility] 07-21-2023 10:06-0500 Body weight 107.04 kg MD Nancy Grace Work Phone: [facility] 07-18-2023 06:45-0500 Body height 175.26 cm MD Nancy Grace Work Phone: [facility] 07-18-2023 06:45-0500 Body weight 107.04 kg MD Nancy Grace Work Phone: [facility] 07-15-2023 13:58-0500 Diastolic blood pressure 88 mm[Hg] Troy Coulter [facility] [place] 07-15-2023 13:58-0500 Heart rate 99 /min Troy Coulter [facility] [place] 07-15-2023 13:58-0500 SaO2% (BldA) [Mass fraction] 98 % Troy Coulter [facility] [place] 07-15-2023 13:58-0500 Systolic blood pressure 142 mm[Hg] Troy Coulter [facility] [place] 05-16-2023 07:57-0500 Diastolic blood pressure 90 mm[Hg] Nancy Grace [facility] 05-16-2023 07:57-0500 Mean blood pressure 111 mm[Hg] Nancy Grace [facility] [place] 05-16-2023 07:57-0500 Systolic blood pressure 152 mm[Hg] Nancy Grace [facility] Encounters Encounter Date Encounter Type Care Provider Facility Start: 07-09-2025 ambulatory Nancy Grace Facility : [facility] [place] Start: 01-07-2025 ambulatory Nancy Grace Facility :[facility] Start: 10-08-2024 ambulatory Nancy Grace Facility :[facility] Start: 09-03-2024 ambulatory RAMANDEEP Uriostegui ty:[facility] [place] Start: 08-22-2024 End: 08-23-2024 Lab Drop off Nancy Grace [facility] Start: 08-22-2024 End: 08-23-2024 ambulatory Nancy Grace Facility:[facility] Start: 08-21-2024 End: 08-21-2024 ambulatory Estefania Reddy Facility:[facility] [place] Start: 08-17-2024 End: 08-17-2024 Lab Drop off Nancy Grace [facility] Start: 08-17-2024 End: 08-17-2024 ambulatory MD Nancy Grace Facility:[facility] Start: 08-14-2024 End: 08-14-2024 ambulatory CHLOE HAWTHORNE [facility] Start: 08-14-2024 Encounter for other preprocedural examination CHLOE CLARE [facility] Start: 08-14-2024 End: 08-14-2024 Patient encounter procedure Chloe Hawthorne PA Work Phone: [facility] Comment on above: Preop examination Start: 08-14-2024 End: 08-14-2024 Preprocedural examination done Chloe Hawthorne PA Work Phone: [facility] Start: 08-14-2024 End: 08-14-2024 Bamboo flowsheet Chloe Hawthorne PA Work Phone: [facility] Start: 08-14-2024 End: 08-14-2024 Bamboo flowsheet Chloe Hawthorne PA Work Phone: [facility] Start: 08-14-2024 End: 08-14-2024 External Result Encounter Chloe Hawthorne PA Work Phone: [facility] External Department Unsolicited Start: 08-14-2024 End: 08-14-2024 ambulatory CHLOE HAWTHORNE Not Available Start: 08-09-2024 End: 08-09-2024 Orders Only Chloe Hawthorne PA Work Phone: [facility] Comment on above: Encounter for other preprocedural examination Start: 08-09-2024 End: 08-09-2024 Patient encounter status Chloe Hawthorne PA Work Phone: [facility] Start: 07-24-2024 End: 07-24-2024 ambulatory Estefania Reddy Facility:[facility] Start: 07-24-2024 End: 07-24-2024 Patient encounter procedure Estefania X Orponce [facility] Start: 07-18-2024 End: 07-18-2024 Bamboo flowsheet Jr. Lauren Dawkins Stepkelsie DO Work Phone: [facility] Start: 07-18-2024 End: 07-18-2024 Bamboo flowsheet Jr. Lauren Dawkins Stepanic DO Work Phone: [facility] Start: 07-18-2024 End: 07-18-2024 Office outpatient visit 25 minutes Jr. Lauren Dawkins Stepkelsie DO Work Phone: [facility] Comment on above: Carpal tunnel syndro me of right wrist (Primary Dx); Pain of right hand Start: 07-18-2024 End: 07-18-2024 ambulatory LAUREN LECHUGA Not Available Start: 07-16-2024 End: 07-16-2024 Lab Drop off Nancy Garce [facility] [place] Start: 07-16-2024 End: 07-16-2024 ambulatory Nancy Grace Facility:[facility] Start: 07-09-2024 End: 07-09-2024 Lab Drop off Nancy Grace [facility] Start: 07-09-2024 End: 07-09-2024 ambulatory Nancy Grace Facility:[facility] Start: 05-22-2024 End: 05-22-2024 Bamboo flowsheet Christopher [...] Not Available Start: 05-18-2024 End: 05-18-2024 ambulatory SPLIT LEATHER MOSSER MARINO KEARNS Facility:[facility] Start: 02-22-2024 End: 02-22-2024 ambulatory Ramos Euceda Facility:[facility] Start: 02-22-2024 End: 02-22-2024 Patient encounter procedure Ramosnatan Nga [facility] Start: 01-30-2024 End: 01-30-2024 Lab Drop off Nancy Grace [facility] Start: 01-30-2024 End: 01-30-2024 ambulatory Nancy Grace Facility:[facility] Start: 01-13-2024 End: 01-13-2024 ambulatory XXXX NONE Facility:[facility] Start: 01-13-2024 End: 01-13-2024 Patient encounter procedure Javier Goins [facility] Start: 01-11-2024 End: 01-11-2024 Lab Drop off Nancy Grace [facility] Start: 01-11-2024 End: 01-11-2024 ambulatory Nancy Grace Facility:[facility] Start: 01-10-2024 End: 01-10-2024 ambulatory Bryant TAO Facility: [place] Start: 01-10-2024 End: 01-10-2024 Patient encounter procedure Bryant TAO [facility] [place] Start: 01-05-2024 End: 01-05-2024 ambulatory MD Nancy Grace Facility:[facility] Start: 01-02-2024 End: 02-02-2024 ambulatory Nancy Grace Facility:CD:[id number] Start: 12-29-2023 End: 12-30-2023 Evaluation and management of inpatient Ramos Euceda Facility:[facility] Start: 12-29-2023 Emergency department patient visit Ronnyeric Cartagena Facility:[facility] Start: 12-29-2023 End: 12-30-2023 Evaluation and management of inpatient Artemio Olivares [facility] Start: 12-27-2023 End: 12-27-2023 Lab Drop off Nancy Grace [facility] Start: 12-27-2023 End: 12-27-2023 ambulatory Nancy Grace Facility:[facility] Start: 12-22-2023 End: 12-22-2023 Lab Drop off MARINO KEARNS [facility] [place] Start: 12-22-2023 End: 12-22-2023 ambulatory MARINO KEARNS Facility:[facility] Start: 11-28-2023 End: 11-28-2023 ambulatory Bryant TAO Facility:[facility] Start: 11-28-2023 End: 11-28-2023 Patient encounter procedure Bryant TAO [facility] [place] Start: 10-19-2023 End: 10-19-2023 ambulatory Jacinto Ramirez Facility:[facility] Start: 10-19-2023 End: 10-19-2023 Patient encounter procedure Jacinto Ramirez [facility] Start: 09-22-2023 End: 09-22-2023 ambulatory Bryant TAO Facility:[facility] Start: 09-22-2023 End: 09-22-2023 Patient encounter procedure Bryant TAO [facility] Start: 09-09-2023 End: 09-09-2023 ambulatory Nancy Grace Facility:[facility] Start: 09-09-2023 End: 09-09-2023 Admission to same day surgery center MD Nancy Grace Work Phone: [facility] [place] Start: 09-09-2023 End: 09-09-2023 ambulatory MD Nancy Grace Work Phone: [facility] Work Phone: Start: 09-09-2023 End: 09-09-2023 ambulatory Bryant TAO Facility::[id number] Start: 09-01-2023 End: 09-01-2023 Admission to same day surgery center Bryant TAO [facility] [place] Start: 09-01-2023 End: 09-01-2023 ambulatory Bryant TAO Facility:[facility] Start: 08-19-2023 End: 08-19-2023 ambulatory XXXX NONE Facility:[facility] Start: 08-19-2023 End: 08-19-2023 Patient encounter procedure Troy Coulter [facility] [place] Start: 08-15-2023 End: 08-15-2023 Lab Drop off Nancy Grace [facility] Start: 08-15-2023 End: 08-15-2023 ambulatory Nancy Grace Facility:[facility] Start: 08-11-2023 End: 08-11-2023 Patient encounter procedure Bryant TAO [facility] Start: 08-05-2023 End: 08-05-2023 Patient encounter procedure Troy Coulter [facility] Start: 08-02-2023 End: 08-02-2023 Patient encounter procedure Nancy Grace [facility] Start: 07-27-2023 End: 07-27-2023 Patient encounter procedure RAMANDEEP Green MINDI [facility] [place] Start: 07-21-2023 End: 07-21-2023 ambulatory Ramandeep Porter Facility:[facility] Start: 07-21-2023 End: 07-21-2023 ambulatory MD Nancy Grace Work Phone: [facility] Work Phone: Start: 07-21-2023 End: 07-21-2023 Patient encounter procedure MD Nancy Grace Work Phone: [facility] [place] Work Phone: Start: 07-18-2023 End: 07-18-2023 ambulatory MD Nancy Grace Work Phone: [facility] Work Phone: Start: 07-18-2023 End: 07-18-2023 Patient encounter procedure MD Nancy Grace Work Phone: [facility] [place] Work Phone: Start: 07-15-2023 End: 07-15-2023 Patient encounter procedure Troy Coulter [facility] [place] Start: 06-28-2023 End: 06-28-2023 Lab Drop off Nancy Grace [facility] Start: 06-23-2023 End: 06-23-2023 Patient encounter procedure Manolo ALLEN [facility] Start: 06-22-2023 End: 06-22-2023 Patient encounter procedure RAMANDEEP PORTER [facility] Start: 06-21-2023 End: 06-21-2023 Patient encounter procedure RAMANDEEP PORTER [facility] Start: 06-13-2023 End: 06-13-2023 Lab Drop off Nacny Grace [facility] Start: 05-27-2023 End: 05-27-2023 Lab Drop off Christy L Ese [facility] Start: 05-26-2023 End: 05-26-2023 Lab Drop off Nancy Grace [facility] Start: 05-18-2023 End: 06-10-2023 Pre-admission assessment Nancy Grace [facility] Start: 05-16-2023 End: 05-16-2023 Lab Drop off Nancy Grace [facility] Start: 04-04-2023 End: 04-04-2023 Lab Drop off Christy L Ese [facility] Start: 04-04-2023 End: 04-04-2023 Lab Drop off Christy L Ese [facility] Start: 01-20-2023 End: 01-20-2023 Lab Drop off Nancy Grace [facility] Start: 07-13-2022 End: 07-14-[address] TYRESE MCGRATH Facility:[facility] Procedures Date Procedure Procedure Detail Performing Clinician Start: 08-14-2024 Basic metabolic pane l calcium total Chloe Hawthorne PA Work Phone: Start: 05-22-2024 End: 05-22-2024 Needle emg ea extremty w/paraspinl area complete Carlos Howe DO Work Phone: Start: 09-09-2023 OR (TRUS) Prostate B iopsy w/Ultrasound (Not Applicable) MD Nancy Grace Work Phone: Start: 07-21-2023 MR prostate wo/w con MD Nancy Grace Work Phone: Start: 07-13-[address] TYRESE HARPER IGHT Comment on above: Performed By: #### P SAD #### [facility] [address] [place] [address] Dr. Pilo Jansen Arthroscopy Nancy Grace Comment on above: right Arthroscopy Bryant EMMY Comment on above: right back surgery 2 Nancy Ruiz Comment on above: lower back Colonoscopy Javier Kirnus Comment on above: years ago-- 1989' Decompression of med valdo nerve Nancy Grace Decompression of med valdo nerve Bryant EMMY hand and elbow surgery 3 Marcin Grace Comment on above: left hand and elbow surge ry LEFT 3 Bryant EMMY Comment on above: left hand and elbow surge ry LEFT 4 Javier Kirnus Comment on above: left Hand tendon repaired Nancy Grace Comment on above: left thumb tendon Hand tendon repaired Bryant EMMY Comment on above: left thumb tendon Spinal arthrodesis RAMANDEEP PORTER Spinal arthrodesis Bryant JOHNSON Plan of Treatment Date Care Activity Detail Author Start: 09-11-2024 End: 09-11-2024 Patient encounter procedure 09/11/2024 9:15 AM EDT Office Visit [facility] [address] [place] [id number] Chloe Hawthorne, PA [address] [facility] [address] [place] [address] [facility] Start: 08-14-2024 End: 08-14-2024 Patient encounter procedure [facility] Comment on above: Preop examination Start: 08-09-2024 End: 08-09-2025 Basic metabolic 1998 panel - Serum or Plasma Basic metabolic panel Lab Routine Preop examination Expected: 08/09/2024 (Approximate), Expires: 08/09/2025 [facility] Work Phone: Comment on above: Expected: 08/09/2024 (Approximate), Expires: 08/09/2025 Start: 08-09-2024 End: 08-09-2025 Basic metabolic 2000 panel - Serum or Plasma Basic Metabolic Panel Lab Routine Encounter for other preprocedural examination Expected: 08/09/2024, Expires: 08/09/2025 [facility] Work Phone: Comment on above: Expected: 08/09/2024 , Expires: 08/09/2025 Start: 07-18-2024 End: 07-18-2024 Patient encounter procedure 07/18/2024 8:30 AM EST Office Visit [facility] [address] [place] [address] Jr. Lauren Dillon DO [address] [facility] [address] [place] [address] Arrived [facility] Comment on above: Arrived Start: 05-22-2024 End: 05-22-2024 Patient encounter procedure 05/22/2024 8:30 AM EST Procedure Visit [facility] [address] [place] [address] Carlos Howe DO [address] [place] [address] Arrived [facility] Comment on above: Arrived Start: 02-14-2024 Screening for malign ant neoplasm of colon [facility] Start: 02-05-2024 Influenza vaccination Influenza Vacc ine [facility] Start: 09-09-2023 End: 09-09-2023 [facility] Start: 03-09-2021 Pneumococcal Vaccine : 65+ Years (2 of 2 - PPSV23 or PCV20) Pneumococcal Vaccine: 65+ Years (2 of 2 - PPSV23 or PCV20) [facility] Start: 2019 Fall Risk Screening Fall Risk Screen ing [facility] Start: 2004 Administration of varicella zoster vaccine Zoster (Shingles) Vaccine (1 of 2) [facility] Start: 1973 DTaP,Tdap and Td Vaccines (1 - Tdap) DTaP,Tdap and Td Vaccines (1 - Tdap) [facility] Start: 1972 Adult BMI Screening Adult BMI Screen ing [facility] Start: 1966 Depression Screening Depression Scre ening [facility] Start: 1966 Tobacco Screening Tobacco Screening [facility] Start: 1954 Screening for malign ant neoplasm of colon [facility] Patient referral [facility] Work Phone: Immunizations Immunization Date Immunization Notes Care Provider Fa cility 03-20-2024 influenza virus vaccine, unspecified formulation Nancy Grace [facility] 03-20-2024 SARS-CoV-2 mRNA (tozinameran 5y-11y) vaccine Nancy Grace [facility] Comment on above: Result Comment: pfiz er 03-16-2023 influenza virus vaccine, unspecified formulation Nancy Grace [facility] 04-05-2022 influenza virus vaccine, unspecified formulation Nancy Grace [facility] 04-05-2022 SARS-CoV-2 (COVID-19 ) [id number] Nancy Grace [facility] 03-01-2021 influenza virus vaccine, unspecified formulation Nancy Grace [facility] 03-01-2021 SARS-CoV-2 (COVID-19 ) mRNA BNT-162b2 vax Nancy Grace [facility] Comment on above: Result Comment: 2022: [id number] 08-08-2020 SARS-CoV-2 (COVID-19 ) mRNA BNT-162b2 vax Nancy Grace [facility] 07-18-2020 SARS-CoV-2 (COVID-19 ) mRNA BNT-162b2 teresax Nancy Grace [facility] 03-09-2020 influenza virus vaccine, unspecified formulation Nancy Grace [facility] 03-09-2020 pneumococcal conjuga te vaccine, 13 valent Nancy Grace [facility] NEGATED: Highlighted row has not occurred!02-14-2023 influenza virus vaccine, unspecified formulation Christy Mulligan [facility] Payers Date Payer Category Payer Unknown [id number] 2023 Self-pay [id number] 2022 Private Health Insurance [employer] [id number] 2018 Medicare [id number] 2018 Medicare HMO [facility] [id number] 1959 Medicare [id number] 1959 Unknown [id number] 1954 Unknown [id number] 2.16.840.1.586317.3.579.2. 593 1954 Unknown [id number] 2.16840.1.563462.3.579.2. 727 1954 Unknown [id number] 2.16.840.1.727109.3.579.2. 727 1954 Unknown [id number] 2.16.840.1.099932.3.579.2. 727 1954 Unknown [id number] 2.16.840.1.157376.3.579.2. 727 1954 Unknown [id number] 2.16.840.1.016854.3.579.2. 1954 Unknown [id number] 2.16.840.1.510735.3.579.2 1954 Unknown [id number] 2.16.840.1.220798.3.579.2. 1954 Unknown [id number] 2.16.840.1.906142.3.579.2 1954 Unknown [id number] 2.16.840.1.889477.3.579.2 1954 Unknown [id number] 2.16.840.1.387097.3.579.2 1954 Unknown [id number] 2.16.840.1.774725.3.579.2 1954 Unknown [id number] 2.16.840.1.782741.3.579.2 1954 Unknown [id number] 2.16.840.1.244503.3.579.2 1954 Unknown [id number] 2.16.840.1.051059.3.579.2 1954 Unknown [id number] 2.16.840.1.111573.3.579.2 1954 Unknown [id number] 2.16.840.1.466634.3.579.2 1954 Unknown [id number] 2.16.840.1.268790.3.579.2 1954 Unknown [id number] 2.16.840.1.933689.3.579.2 1954 Unknown [id number] 2.16.840.1.515895.3.579.2 1954 Unknown [id number] 2.16.840.1.553701.3.579.2. 727 1954 Unknown [id number] 2.16.840.1.585519.3.579.2. 72 1954 Unknown [id number] 2.16.840.1.200925.3.579.2. 72 1954 Unknown [id number] 2.16.840.1.219354.3.579.2. 72 1954 Unknown [id number] 2.16.840.1.319565.3.579.2. 72 1954 Unknown [id number] 2.16.840.1.907376.3.579.2. 1954 Unknown [id number] 2.16.840.1.944278.3.579.2. 1954 Unknown [id number] 2.16.840.1.665510.3.579.2. 1954 Unknown [id number] 2.16.840.1.792938.3.579.2. 72 1954 Unknown [id number] 2.16.840.1.944583.3.579.2. 1259 1954 Unknown [id number] 2.16.840.1.309249.3.579.2. 1259 1954 Unknown [id number] 2.16.840.1.897218.3.579.2. 1259 1954 Unknown [id number] 2.16.840.1.802055.3.579.2. 1286 1954 Unknown [id number] 2.16.840.1.039445.3.579.2. 1954 Unknown [id number] 2.16.840.1.823366.3.579.2. 727 1954 Unknown [id number] 2.16.840.1.308080.3.579.2. 727 1954 Unknown [id number] 2.16.840.1.643834.3.579.2. 727 1954 Unknown [id number] 2.16.840.1.894941.3.579.2. 727 1954 Unknown [id number] 2.16.840.1.227475.3.579.2. 727 1954 Unknown [id number] 2.16.840.1.813572.3.579.2. 727 1954 Unknown [id number] 2.16.840.1.609028.3.579.2. 72 1954 Unknown [id number] 2.16.840.1.498740.3.579.2. 727 1954 Unknown [id number] 2.16.840.1.308399.3.579.2. 72 1954 Unknown [id number] 2.16.840.1.957222.3.579.2. 727 1954 Unknown [id number] 2.16.840.1.416296.3.579.2. 727 Unknown Regular Insurance [id number] Unknown [id number] 2.16.840.1.501915.3.579.2. 531 Unknown [id number] 2.16.840.1.563643.3.579.2. 531 Social History Date Type Detail Facility Start: 01-20-2023 End: 08-21-2024 [facility] Comment on above: former smoker, quit 2006 uses chewing tobacco former smoker. stopp ed at age 50. Tobacco smoking status Smokeless tobacco user within last 30 days [facility] Comment on above: former smoker, quit 2006 uses chewing tobacco former smoker. stopp ed at age 50. Start: 11-15-2018 End: 08-14-2024 Sex Assigned At Male [facility] Start: 1955 Sex Assigned At Male [facility] Start: [...] Start: 08-14-2024 Alcohol Comment 2 BEERS/WK [facility] Sexual Orientation [facility] Medical Equipment Procedure Code Equipment Code Equipment Origin al Text Equipment Identifier Dates [facility] DME Prescription, See Instructions, 100 strip(s), 3, One touch ultra 2 test strips Use to tests sugars once a day Dx E11.9, [facility], Supply, 174.5, cm, 05/26/23 9:14:00 EST, Height/Length Dosing, 109.1, kg, 05/26/23 9:14:00 EST, Weight Dosing Start: 05-26-[address] [facility] DME Prescription, See Instructions, 100 lancet(s), 3, Soft click lancets Use to test blood sugars once a day Dx E11.9, [facility], Supply, 174.5, cm, 05/26/23 9:14:00 EST, Height/Length Dosing, 109.1, kg, 05/26/23 9:14:00 EST, Weight Dosing Start: 05-26-[address] [facility] DME Prescription, See Instructions, 100 strip(s), 3, One touch ultra 2 test strips Use to tests sugars once a day Dx E11.9, [facility], Supply, 174.5, cm, 05/26/23 9:14:00 EST, Height/Length Dosing, 109.1, kg, 05/26/23 9:14:00 EST, Weight Dosing Start: 05-26-[address] [facility] DME Prescription, See Instructions, 100 lancet(s), 3, Soft click lancets Use to test blood sugars once a day Dx E11.9, [facility], Supply, 174.5, cm, 05/26/23 9:14:00 EST, Height/Length Dosing, 109.1, kg, 05/26/23 9:14:00 EST, Weight Dosing Start: 05-26-[address] [facility] DME Prescription, See Instructions, 100 strip(s), 3, One touch ultra 2 test strips Use to tests sugars once a day Dx E11.9, [facility], Supply, 174.5, cm, 05/26/23 9:14:00 EST, Height/Length Dosing, 109.1, kg, 05/26/23 9:14:00 EST, Weight Dosing Start: 05-26-[address] [facility] [place] DME Prescription, See Instructions, 100 lancet(s), 3, Soft click lancets Use to test blood sugars once a day Dx E11.9, [facility], Supply, 174.5, cm, 05/26/23 9:14:00 EST, Height/Length Dosing, 109.1, kg, 05/26/23 9:14:00 EST, Weight Dosing Start: 05-26-[address] [facility] [place] DME Prescription, See Instructions, 100 strip(s), 3, One touch ultra 2 test strips Use to tests sugars once a day Dx E11.9, [facility], Supply, 174.5, cm, 05/26/23 9:14:00 EST, Height/Length Dosing, 109.1, kg, 05/26/23 9:14:00 EST, Weight Dosing Start: 05-26-[address] [facility] [place] DME Prescription, See Instructions, 100 lancet(s), 3, Soft click lancets Use to test blood sugars once a day Dx E11.9, [facility], Supply, 174.5, cm, 05/26/23 9:14:00 EST, Height/Length Dosing, 109.1, kg, 05/26/23 9:14:00 EST, Weight Dosing Start: 05-26-[address] [facility] [place] DME Prescription, See Instructions, 100 strip(s), 3, One touch ultra 2 test strips Use to tests sugars once a day Dx E11.9, [facility], Supply, 174.5, cm, 05/26/23 9:14:00 EST, Height/Length Dosing, 109.1, kg, 05/26/23 9:14:00 EST, Weight Dosing Start: 05-26-[address] [facility] [place] DME Prescription, See Instructions, 100 lancet(s), 3, Soft click lancets Use to test blood sugars once a day Dx E11.9, [facility], Supply, 174.5, cm, 05/26/23 9:14:00 EST, Height/Length Dosing, 109.1, kg, 05/26/23 9:14:00 EST, Weight Dosing Start: 05-26-[address] [facility] [place] DME Prescription, See Instructions, 100 strip(s), 3, One touch ultra 2 test strips Use to tests sugars once a day Dx E11.9, [facility], Supply, 174.5, cm, 05/26/23 9:14:00 EST, Height/Length Dosing, 109.1, kg, 05/26/23 9:14:00 EST, Weight Dosing Start: 05-26-[address] [facility] [place] DME Prescription, See Instructions, 100 lancet(s), 3, Soft click lancets Use to test blood sugars once a day Dx E11.9, [facility], Supply, 174.5, cm, 05/26/23 9:14:00 EST, Height/Length Dosing, 109.1, kg, 05/26/23 9:14:00 EST, Weight Dosing Start: 05-26-[address] [facility] [place] DME Prescription, See Instructions, 100 strip(s), 3, One touch ultra 2 test strips Use to tests sugars once a day Dx E11.9, [facility], Supply, 174.5, cm, 05/26/23 9:14:00 EST, Height/Length Dosing, 109.1, kg, 05/26/23 9:14:00 EST, Weight Dosing Start: 05-26-[address] [facility] [place] DME Prescription, See Instructions, 100 lancet(s), 3, Soft click lancets Use to test blood sugars once a day Dx E11.9, [facility], [facility], 174.5, cm, 05/26/23 9:14:00 EST, Height/Length Dosing, 109.1, kg, 05/26/23 9:14:00 EST, Weight Dosing Start: 05-26-[address] [facility] [place] DME Prescription, See Instructions, 100 strip(s), 3, One touch ultra 2 test strips Use to tests sugars once a day Dx E11.9, [facility], Supply, 174.5, cm, 05/26/23 9:14:00 EST, Height/Length Dosing, 109.1, kg, 05/26/23 9:14:00 EST, Weight Dosing Start: 05-26-[address] [facility] [place] DME Prescription, See Instructions, 100 lancet(s), 3, Soft click lancets Use to test blood sugars once a day Dx E11.9, [facility], Supply, 174.5, cm, 05/26/23 9:14:00 EST, Height/Length Dosing, 109.1, kg, 05/26/23 9:14:00 EST, Weight Dosing Start: 05-26-[address] [facility] [place] DME Prescription, See Instructions, 100 strip(s), 3, One touch ultra 2 test strips Use to tests sugars once a day Dx E11.9, [facility], [facility], 174.5, cm, 05/26/23 9:14:00 EST, Height/Length Dosing, 109.1, kg, 05/26/23 9:14:00 EST, Weight Dosing Start: 05-26-[address] [facility] [place] DME Prescription, See Instructions, 100 lancet(s), 3, Soft click lancets Use to test blood sugars once a day Dx E11.9, [facility], [facility], 174.5, cm, 05/26/23 9:14:00 EST, Height/Length Dosing, 109.1, kg, 05/26/23 9:14:00 EST, Weight Dosing Start: 05-26-2023 [facility] [place] FDA Start: 05-18-2017 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 FDA [...] 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 rt: 05-18-2017 [place] Lev el Deformity FDA Start: 05-18-2017 [...] tests sugars once a day Dx E11.9, [facility], [facility], 174.5, cm, 05/26/23 9:14:00 EST, Height/Length Dosing, 109.1, kg, 05/26/23 9:14:00 EST, Weight Dosing Start: 05-26-[address] [facility] [place] DME Prescription, See Instructions, 100 lancet(s), 3, Soft click lancets Use to test blood sugars once a day Dx E11.9, [facility], Supply, 174.5, cm, 05/26/23 9:14:00 EST, Height/Length Dosing, 109.1, kg, 05/26/23 9:14:00 EST, Weight Dosing Start: 05-26-[address] [facility] [place] DME Prescription, See Instructions, 100 strip(s), 3, One touch ultra 2 test strips Use to tests sugars once a day Dx E11.9, [facility], Supply, 174.5, cm, 05/26/23 9:14:00 EST, Height/Length Dosing, 109.1, kg, 05/26/23 9:14:00 EST, Weight Dosing Start: 05-26-[address] [facility] [place] DME Prescription, See Instructions, 100 lancet(s), 3, Soft click lancets Use to test blood sugars once a day Dx E11.9, [facility], Supply, 174.5, cm, 05/26/23 9:14:00 EST, Height/Length Dosing, 109.1, kg, 05/26/23 9:14:00 EST, Weight Dosing Start: 05-26-[address] [facility] [place] DME Prescription, See Instructions, 100 strip(s), 3, One touch ultra 2 test strips Use to tests sugars once a day Dx E11.9, [facility], Supply, 174.5, cm, 05/26/23 9:14:00 EST, Height/Length Dosing, 109.1, kg, 05/26/23 9:14:00 EST, Weight Dosing Start: 05-26-[address] [facility] [place] DME Prescription, See Instructions, 100 lancet(s), 3, Soft click lancets Use to test blood sugars once a day Dx E11.9, [facility], Supply, 174.5, cm, 05/26/23 9:14:00 EST, Height/Length Dosing, 109.1, kg, 05/26/23 9:14:00 EST, Weight Dosing Start: 05-26-[address] [facility] [place] DME Prescription, See Instructions, 100 strip(s), 3, One touch ultra 2 test strips Use to tests sugars once a day Dx E11.9, [facility], Supply, 174.5, cm, 05/26/23 9:14:00 EST, Height/Length Dosing, 109.1, kg, 05/26/23 9:14:00 EST, Weight Dosing Start: 05-26-[address] [facility] [place] DME Prescription, See Instructions, 100 lancet(s), 3, Soft click lancets Use to test blood sugars once a day Dx E11.9, [facility], Supply, 174.5, cm, 05/26/23 9:14:00 EST, Height/Length Dosing, 109.1, kg, 05/26/23 9:14:00 EST, Weight Dosing Start: 05-26-[address] [facility] [place] DME Prescription, See Instructions, 100 strip(s), 3, One touch ultra 2 test strips Use to tests sugars once a day Dx E11.9, [facility], Supply, 174.5, cm, 05/26/23 9:14:00 EST, Height/Length Dosing, 109.1, kg, 05/26/23 9:14:00 EST, Weight Dosing Start: 05-26-[address] [facility] [place] DME Prescription, See Instructions, 100 lancet(s), 3, Soft click lancets Use to test blood sugars once a day Dx E11.9, [facility], Supply, 174.5, cm, 05/26/23 9:14:00 EST, Height/Length Dosing, 109.1, kg, 05/26/23 9:14:00 EST, Weight Dosing Start: 05-26-[address] [facility] [place] DME Prescription, See Instructions, 100 strip(s), 3, One touch ultra 2 test strips Use to tests sugars once a day Dx E11.9, [facility], Supply, 174.5, cm, 05/26/23 9:14:00 EST, Height/Length Dosing, 109.1, kg, 05/26/23 9:14:00 EST, Weight Dosing Start: 05-26-[address] [facility] [place] DME Prescription, See Instructions, 100 lancet(s), 3, Soft click lancets Use to test blood sugars once a day Dx E11.9, [facility], Supply, 174.5, cm, 05/26/23 9:14:00 EST, Height/Length Dosing, 109.1, kg, 05/26/23 9:14:00 EST, Weight Dosing Start: 05-26-[address] [facility] [place] DME Prescription, See Instructions, 100 strip(s), 3, One touch ultra 2 test strips Use to tests sugars once a day Dx E11.9, [facility], Supply, 174.5, cm, 05/26/23 9:14:00 EST, Height/Length Dosing, 109.1, kg, 05/26/23 9:14:00 EST, Weight Dosing Start: 05-26-[address] [facility] [place] DME Prescription, See Instructions, 100 lancet(s), 3, Soft click lancets Use to test blood sugars once a day Dx E11.9, [facility], [facility], 174.5, cm, 05/26/23 9:14:00 EST, Height/Length Dosing, 109.1, kg, 05/26/23 9:14:00 EST, Weight Dosing Start: 05-26-2023 Tyson Chester FDA Start: 05-18-2017 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 FDA [...] 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 rt: 05-18-[address] [facility] [place] DME Prescription, See Instructions, 100 strip(s), 3, One touch ultra 2 test strips Use to tests sugars once a day Dx E11.9, [facility], Supply, 174.5, cm, 05/26/23 9:14:00 EST, Height/Length Dosing, 109.1, kg, 05/26/23 9:14:00 EST, Weight Dosing Start: 05-26-[address] [facility] [place] DME Prescription, See Instructions, 100 lancet(s), 3, Soft click lancets Use to test blood sugars once a day Dx E11.9, [facility], Supply, 174.5, cm, 05/26/23 9:14:00 EST, Height/Length Dosing, 109.1, kg, 05/26/23 9:14:00 EST, Weight Dosing Start: 05-26-[address] [facility] [place] DME Prescription, See Instructions, 100 strip(s), 3, One touch ultra 2 test strips Use to tests sugars once a day Dx E11.9, [facility], 174.5, cm, 05/26/23 9:14:00 EST, Height/Length Dosing, 109.1, kg, 05/26/23 9:14:00 EST, Weight Dosing Start: 05-26-[address] [facility] [place] DME Prescription, See Instructions, 100 lancet(s), 3, Soft click lancets Use to test blood sugars once a day Dx E11.9, [facility], Supply, 174.5, cm, 05/26/23 9:14:00 EST, Height/Length Dosing, 109.1, kg, 05/26/23 9:14:00 EST, Weight Dosing Start: 05-26-[address] [facility] [place] DME Prescription, See Instructions, 100 strip(s), 3, One touch ultra 2 test strips Use to tests sugars once a day Dx E11.9, [facility], 174.5, cm, 05/26/23 9:14:00 EST, Height/Length Dosing, 109.1, kg, 05/26/23 9:14:00 EST, Weight Dosing Start: 05-26-[address] [facility] [place] DME Prescription, See Instructions, 100 lancet(s), 3, Soft click lancets Use to test blood sugars once a day Dx E11.9, [facility], 174.5, cm, 05/26/23 9:14:00 EST, Height/Length Dosing, 109.1, kg, 05/26/23 9:14:00 EST, Weight Dosing Start: 05-26-[address] [facility] [place] DME Prescription, See Instructions, 100 strip(s), 3, One touch ultra 2 test strips Use to tests sugars once a day Dx E11.9, [facility], 174.5, cm, 05/26/23 9:14:00 EST, Height/Length Dosing, 109.1, kg, 05/26/23 9:14:00 EST, Weight Dosing Start: 05-26-[address] [facility] [place] DME Prescription, See Instructions, 100 lancet(s), 3, Soft click lancets Use to test blood sugars once a day Dx E11.9, [facility], Supply, 174.5, cm, 05/26/23 9:14:00 EST, Height/Length Dosing, 109.1, kg, 05/26/23 9:14:00 EST, Weight Dosing Start: 05-26-[address] [facility] [place] DME Prescription, See Instructions, 100 strip(s), 3, One touch ultra 2 test strips Use to tests sugars once a day Dx E11.9, [facility], Supply, 174.5, cm, 05/26/23 9:14:00 EST, Height/Length Dosing, 109.1, kg, 05/26/23 9:14:00 EST, Weight Dosing Start: 05-26-[address] [facility] [place] DME Prescription, See Instructions, 100 lancet(s), 3, Soft click lancets Use to test blood sugars once a day Dx E11.9, [facility], Supply, 174.5, cm, 05/26/23 9:14:00 EST, Height/Length Dosing, 109.1, kg, 05/26/23 9:14:00 EST, Weight Dosing Start: 05-26-[address] [facility] [place] DME Prescription, See Instructions, 100 strip(s), 3, One touch ultra 2 test strips Use to tests sugars once a day Dx E11.9, [facility], Supply, 174.5, cm, 05/26/23 9:14:00 EST, Height/Length Dosing, 109.1, kg, 05/26/23 9:14:00 EST, Weight Dosing Start: 05-26-[address] [facility] [place] DME Prescription, See Instructions, 100 lancet(s), 3, Soft click lancets Use to test blood sugars once a day Dx E11.9, [facility], Supply, 174.5, cm, 05/26/23 9:14:00 EST, Height/Length Dosing, 109.1, kg, 05/26/23 9:14:00 EST, Weight Dosing Start: 05-26-2023 'Number 1' Gluco meter and test strips testing BS twice daily- will bring equipment to [facility] f/ to update brand Start: 01-03-2024 'Number 1' Gluco meter and test strips testing BS twice daily- will bring equipment to [facility] f/u to update brand Start: [...] Facility 01-13-2024 Functional Status N/A [facility] 01-10-2024 Functional Status N/A [facility] 12-29-2023 Functional Status N/A [facility] 12-29-2023 Functional Status [facility] 11-28-2023 Functional Status N/A [facility] 10-19-2023 Functional Status No [facility] 09-22-2023 Functional Status N/A [facility] 08-19-2023 Functional Status N/A [facility] 08-11-2023 Functional Status No [facility] 07-27-2023 Functional Status N/A [facility] 07-15-2023 Functional Status N/A [facility] 06-21-2023 Functional Status N/A [facility] Clinical Notes 06-13-2019 to 08-21-2024 Chloe Hawthorne, MEIR - 08/14/2024 2:15 PM EDTJr. Lauren Juancho Dillon, DO - 07/18/2024 8:30 AM Charlinerossgeorgie Kathleen, ARRT - 05/22/2024 8:30 AM EST Note [...] these instructions at home: Medicines ??? Take glhn-xiy-uzcnatf and prescription medicines only as told by [...] provider. Document Revised: 02/11/2021 Document Reviewed: 02/11/2021 [employer] Patient Education ? 2023 [employer]. [facility] 08-14-2024 History of Present illness Narrative [...] @ JUAN LUIS PAT 08/14/24 @ 2:15- [place] Follow up for Post-Op09/11/24 @ 9:15 [place]- RAUL. documented in this encounter [facility] 07-18-2024 History of Present illness Narrative NAME: Alicja Reyes : 1955 HISTORY OF PRESENT ILLNESS: NEW PT Alicja Reyes is an 69 y.o. @ male. (NEW PT) - (R) HAND DISCOMFORT ~5 MONTHS ; S/P B/L UE EMG 05/22/24 @[facility] NO XRAY B/L UE EMG 05/22/24 @[facility] NOTES NUMBNESS IN FINGERS. INTERMITTENT SHARP STABBING PAIN IN ALL FINGERS BUT THUMB. DISCOMFORT ~5 MONTHS (02/2024). DIFFICULTY TAKING PILLS. LIMITED EVP HEAD OF [employer] EXPERIENCE STRATEGY WITH TIGHT FIST. ADMITS N/T. GOOD ROM [...] is normal. Strength additional comments: 5/5 EQUAL EVP HEAD OF [employer] EXPERIENCE STRATEGY STRENGTH Neurovascular Right Right neurovascular exam is [...] requiring urgent evaluation. documented in this encounter [facility] 07-16-2024 Note Patient Education Nutrition BMI for [...] for Disease Control and Prevention: cdc.gov ??? [place] [employer]: heart.org ??? National Heart, Lung, and Blood [place]: nhlbi.nih.gov This information is not intended to replace advice given to you by your health care provider. Make sure you discuss any questions you have with your health care provider. Document Revised: 02/10/2023 Document Reviewed: 02/03/2023 [employer] Patient Education ? 2023 [employer]. [facility] 07-09-2024 Note Patient Education Cardiovascular Hypertension, [...] 12 oz bottle (more content not included)... [facility] 05-22-2024 History of Present illness Narrative Images from the original note were not included. Reason for Appointment: EMG Patient: Alicja Reyes : 1955 EMG Computer: [address] [employer] Referring Physician: Marino Kearns CNP EMG: ADELAIDA director of enterprise strategy: Gee Wang RT(R) Office Location: [place] Reason for EMG: c/o numbness/tingling in fingers on left hand. Hx of left CTR & surgery to left elbow. Hx of DM. Not on blood thinners. Comments: Procedure was explained to the patient who expressed understanding. Patient appeared to have tolerated the test well despite some discomfort due to the nature of the test. documented in this encounter [facility] 05-18-2024 Note Patient Education Neurology Paresthesia Paresthesia [...] liquor (44 mL). General instructions ??? Take staq-art-osdwjfb and prescription medicines only as told by [...] provider. Document Revised: 02/01/2022 Document Reviewed: 02/01/2022 [employer]Mat Patient Education ? 2023 [employer]. [facility] 01-30-2024 Note Nurse Consultation N ote [...] virus vaccine, inactivated 04/05/2022 Recorded SARS-CoV-2 (COVID-19) [id number] 04/05/2022 Recorded influenza virus vaccine, inactivated 03/01/2021 Recorded SARS-CoV-2 (COVID-19) mRNA BNT-162b2 vax 03/01/2021 Recorded 2023-01-13: [id number] SARS-CoV-2 (COVID-19) mRNA BNT-162b2 vax 08/08/2020 Recorded SARS-CoV-2 (COVID-19) mRNA BNT-162b2 vax 07/18/2020 Recorded pneumococcal 13-valent vaccine 03/09/2020 Recorded influenza virus vaccine, inactivated 03/09/2020 Recorded [facility] 01-11-2024 Note Nurse Consultation N ote Reason for Visit Here for lab draw and Dr Tao ordered PSA free and total also joni that for him. canceled the urine culture as patient had urine done at [facility] yesterday and was told it's fine [...] virus vaccine, inactivated 04/05/2022 Recorded SARS-CoV-2 (COVID-19) [id number] 04/05/2022 Recorded influenza virus vaccine, inactivated 03/01/2021 Recorded SARS-CoV-2 (COVID-19) mRNA BNT-162b2 vax 03/01/2021 Recorded 2023-01-13: [id number] SARS-CoV-2 (COVID-19) mRNA BNT-162b2 vax 08/08/2020 Recorded SARS-CoV-2 (COVID-19) mRNA BNT-162b2 vax 07/18/2020 Recorded pneumococcal 13-valent vaccine 03/09/2020 Recorded influenza virus vaccine, inactivated 03/09/2020 Recorded [facility] 01-10-2024 Hospital Discharge instructions Patient Education [...] and water are not available, use hand traffic checker. 2.Clean your penis with soap and water. [...] reusable catheter in a small bathroom. Take fbqj-wia-otupxzu and prescription medicines only as told by [...] provider. Document Revised: 03/29/2022 Document Reviewed: 03/29/2022 [employer] Patient Education 2022 [employer]. Follow Up Care 09/22/2023 13:04:49 With:EMMY REYNOLDS, Bryant Vogel, URL Address: [facility] [employer] [place] [id number] When: Unknown Comments:6 mos [facility] 01-10-2024 Note Patient Education Urology Clean [...] and water are not available, use hand traffic checker. 2. Clean your penis with soap and [...] catheter in a small bathroom. ? Take tocx-osa-ecwhyze and prescription medicines onl (more content not included)... [facility] 12-31-2023 Note Discharge Summary Admission and Discharge Information Admit Date/Time:12/29/2023 15:45 Admitting Physician - Artemio Olivares DO Consulting Physician - Ok REYNOLDS [facility] Admitting Diagnoses: Discharge Diagnoses 1. Hypomagnesemia, 12/29/2023 [...] spending 1 more fucking night in this [facility] with the terrible food and [...] made to ensure accuracy, however, inadvertently computerized cotton ginner helper mistakes may be present. Significant Findings No qualifying data available. Services Consulted Consult to Nephrology - Ordered -- 12/29/23 15:09:00 EDT, Refractory hypomagnesemia, REQUESTED BY DR. GRACE, Consult and Co-manage Consult to Nephrology - Ordered -- 12/29/23 15:22:00 EDT, recurrent hypomag., renal wasting, Consult and Co-manage Consult to Social Servi (more content not included)... [facility] Comment on above: Result Comment: Elec [...] 104.8, kg, 07/26/23 10:21:00 EST, Weight Dosing Misc DME Prescription: Misc DME Prescription, See Instructions, 1 kit(s), 0, One Touch Ultra 2 glucose meter kit Use to tests sugars daily E11.9, [facility], Supply, 174.5, cm, 05/26/23 9:14:00 EST, Height/Length Dosing, 109.1, kg, 05/26/23 9:14:00... Misc DME Prescription: Misc DME Prescription, See Instructions, 100 Unspecified/Unknown, 3, Alcohol prep pads Use to test blood sugars daily Dx E11.9, [facility], Supply, 174.5, cm, 05/26/23 9:14:00 EST, Height/Length Dosing, 109.1, kg, 05/26/23 9:1... Misc DME Prescription: Misc DME Prescription, See Instructions, 100 lancet(s), 3, Soft click lancets Use to test blood sugars once a day Dx E11.9, [facility], Supply, 174.5, cm, 05/26/23 9:14:00 EST, Height/Length Dosing, 109.1, kg, 05/26/23 9:14:00... Misc DME Prescription: Misc DME Prescription, See Instructions, 100 strip(s), 3, One touch ultra 2 test strips Use to tests sugars once a day Dx E (more content not included)... [facility] Comment on above: Result Comment: Elec [...] Do not drink alcohol. General instructions Take lkwl-abs-swvhwdn and prescription medicines only as told by [...] provider. Document Revised: 10/20/2021 Document Reviewed: 10/20/2021 [employer] Patient Education 2022 [employer]. 12/30/2023 12:37:57 Hypomagnesemia Hypomagnesemia Hypomagnesemia is a [...] Do not drink alcohol. General instructions Take fgxk-urk-liezabm and prescription medicines only as told by [...] provider. Document Revised: 10/20/2021 Document Reviewed: 10/20/2021 [employer] Patient Education 2022 [employer] 12/30/2023 12:30:15 How to Take Your Blood Pressure, Gbmv-ul-Prsb How to Take Your Blood Pressure Blood [...] Follow these instructions at home: Medicines Take fywm-wdd-iudfdmo and prescription medicines only as told by [...] monitor. You can buy one at a [employer] or online. When choosing one: Choose one with an arm cuff. Choose one that wraps around your upper arm. Only one finger should fit between your arm and the cuff. Do not choose one that measures your blood pressure from your wrist or finger. Where to find more information [place] Heart Association: www.heart.org Contact a doctor if: [...] provider. Document Revised: 02/04/2022 Document Reviewed: 02/04/2022 [employer] Patient Education 2022 [employer] 12/30/2023 12:30:15 Form - Blood Pressure [...] provider. Document Revised: 02/04/2022 Document Reviewed: 02/04/2022 [employer] Patient Education 2022 [employer]. 12/30/2023 11:53:55 Urinary Tract Infection, Adult, Qawb-gi-Cfel Urinary Tract Infection, Adult A urinary tract [...] Follow these instructions at home: Medicines Take jhsm-rhn-gnsjqav and prescription medicines only as told by [...] provider. Document Revised: 01/02/2021 Document Reviewed: 01/02/2021 [employer] Patient Education 2022 [employer]. 12/30/2023 11:53:55 Hypomagnesemia Hypomagnesemia Hypomagnesemia is a [...] Do not drink alcohol. General instructions Take wtmp-sjo-vqbblaz and prescription medicines only as told by [...] provider. Document Revised: 10/20/2021 Document Reviewed: 10/20/2021 [employer]Mat Patient Education 2022 [employer]. Follow Up Care 12/29/2023 13:34:47 With:Ramos Euceda [facility] [address]- Business (1) When: Unknown Comments:Call for followup appointment in [place] office With:Nancy Grace Address: [address] [place] [address]- Business (2) When:01/05/2024 07:45:00 [facility] 12-30-2023 Note Interdisciplinary No te - PT Order received, chart reviewed. Attempted PT evaluation at 1141 on 12/30/23. Upon attempt, pt. is speaking with Dacia Bañuelos AGACNP-BP and threatening to leave AMA. Dacia instructs PT to hold evaluation at this time. Please re-order PT evaluation if deemed necessary in the future. No PT charges. [facility] 12-29-2023 Evaluation + Plan note Extrac [...] per day. -Consult case management for rehabilitation. -CIOK protocol. 3. Hypotonic neurogenic bladder: He self [...] deep vein thrombosis (DVT) prophylaxis (Z79.899: Other termite treater (current) drug therapy) Orders: magnesium sulfate + [...] Level Extracted from: Title:Admission H & P Author:EDDA BATISTADeysi CHAMBERS enee Date:12/29/23 Awaiting med rec for all [...] deep vein thrombosis (DVT) prophylaxis (Z79.899: Other fci (current) drug therapy) -Lovenox Orders: acetaminophen, 650 [...] Cardiac Monitoring CBC w/ Auto Diff Clinical [place] Withdrawal Assessment Clinical [place] Withdrawal Assessment Clinical [place] Withdrawal Assessment Clinical [place] Withdrawal Assessment Communication Order Physician to Nursing Communication Order Physician to Nursing Consult to Nephrology Consult to Automotive Power Electronics Engineer Drug Screen Urine Elevate Head of Bed [...] made to ensure accuracy, however, inadvertently computerized cotton ginner helper mistakes may be present. Future Appointments Appointment Date:01/05/2024 07:45:00 AM Scheduled Provider:Nancy Grace MD Location:[facility] Appointment Type: Hospital Follow Up w/TCM Appointment Date:01/10/2024 08:15:00 AM Scheduled Provider:Bryant TAO MD Location:[facility] ZAIN Casiano Appointment Type:URO Office Visit Appointment Date:01/13/2024 09:00:00 AM Scheduled Provider:Javier Goins MD [facility] [place] Appointment Type:Cardiology Follow Up (FT) Appointment Date:07/09/2024 08:00:00 AM Scheduled Provider: [facility]: Medicare Wellness Subsequent Diagnostic Tests Pending * PTH Intact 12/30/23 Future Scheduled Tests Laboratory* U Protein/Creat Ratio 07/14/23 * HgbA1c 07/14/23 * HgbA1c 07/26/23 * Microalbumin Level Urine 07/14/23 * CBC w/ Auto Diff 07/14/23 * Comprehensive Metabolic Panel 07/14/23 * Lipid Panel 07/14/23 [facility] [id number] Hospital Discharge instructions Patient Education 11/28/2023 15:52:52 [...] Care 09/27/2023 14:45:03 With:Bryant TAO Address: [address] Business (1) When: Unknown Comments:As we discussed, [...] are at least emptying the bladder intermittently. [facility]06-24-2024 Note [id number]#1.[facility]-2023 NoteCystoscopy ? Voiding after the procedure: [...] if you have a fever over 100 degrees.[facility] 09-22-2023 Hospital Discharge instructions Patient Education [...] including vitamins, herbs, eye drops, creams, and yzut-puw-uybflrb medicines. Any problems you or family members [...] provider tells you to take them. Taking esmi-ybo-bykxtkf medicines, vitamins, herbs, and supplements. Tests You [...] Follow these instructions at home: Medicines Take mxmj-yet-vqncaqo and prescription medicines only as told by [...] provider. Document Revised: 02/03/2022 Document Reviewed: 01/02/2021 [employer] Patient Education 2022 [employer] Follow Up Care 09/06/2023 09:35:10 With:EMMY REYNOLDS, Bryant Vogel, URL Address: [address] [address]- When: Unknown [facility] [id number] NoteUrology Cystoscopy Cystoscopy is a procedure that [...] including vitamins, herbs, eye drops, creams, and hshs-qyw-yrdwsps medicines. ? Any problems you or family [...] tells you to take them. ? Taking zexq-kkk-zqazceg medicines, vitamins, herbs, and supplements. Tests You [...] these instructions at home: Medicines ? Take qtfj-fup-crvnefq and prescription medicines only as told by [...] department th (more content not included)...Anjel [facility] 08-17-2023 [id number] [facility]02-21-2024 Hospital Discharge instructions Patient Education 07/27/2023 [...] discomfort near your rectum, especially while sitting. Mecca-colored urine due to small amounts of blood in your urine. A burning feeling while urinating. Blood in your stool (feces) or bleeding from your rectum. Blood in your semen. Follow these instructions at home: Medicines Take wpxq-yqe-sehtqzq and prescription medicines only as told by [...] provider. Document Revised: 11/16/2021 Document Reviewed: 11/16/2021 [employer]Mat Patient Education 2022 [employer]. 07/27/2023 11:28:00 Transrectal Ultrasound-Guided Prostate Biopsy Transrectal [...] including vitamins, herbs, eye drops, creams, and hqoj-jbb-wogmdla medicines. Any problems you or family members [...] provider tells you to take them. Taking ncst-wyh-zdjdpjy medicines, vitamins, herbs, and supplements. General instructions [...] provider. Document Revised: 11/16/2021 Document Reviewed: 11/16/2021 [employer]Mat Patient Education 2022 [employer]. Follow Up Care 07/26/2023 12:46:05 With:RAMANDEEP PORTER PA-C, URL Address: [address] [place], [place] [address] [address] When: Unknown [facility] 01-16-2024 Hospital Discharge instructions Patient [...] including vitamins, herbs, eye drops, creams, and wqaq-mfp-iuwqfhu medicines. Any problems you or family members [...] provider tells you to take them. Taking qyxa-agk-vadylvm medicines, vitamins, herbs, and supplements. Tests You [...] Follow these instructions at home: Medicines Take lkpt-gti-dlvbbag and prescription medicines only as told by [...] provider. Document Revised: 02/03/2022 Document Reviewed: 01/02/2021 [employer]Mat Patient Education 2022 [employer]. 06/21/2023 14:21:23 Acute Urinary Retention, Male Acute [...] Follow these instructions at home: Medicines Take plzs-rem-movxjxn and prescription medicines only as told by [...] provider. Document Revised: 02/11/2021 Document Reviewed: 02/11/2021 DropMat Patient Education 2022 [employer] Inc. Follow Up Care 06/21/2023 10:00:59 With:RAMANDEEP PORTER PA-C, URL Address: [address] [place] [address] [phone] When: Unknown Comments:sched cysto and prostate MRI [facility] 03-01-2020 Evaluation + Plan note Future Appointments Appointment Date:08/02/2023 08:00:00 AM Scheduled Provider: Location[facility] Appointment Type:CV Echo (FT) Appointment Date:08/05/2023 08:45:00 AM Scheduled Provider: [facility] Appoint[facility] Type:NM Myocard Spect Multi Rest/Stress-Res Appointment Date:08/05/2023 09:45:00 AM Scheduled Provider: [facility] Appointment Type:NM Myocard Spect Multi Rest/Stress - R Appointment Date:08/05/2023 10:15:00 AM Scheduled Provider: [facility] Appointment Type:NM Myocard Spect Multi Rest/Stress-Str Appointment Date:08/05/2023 11:15:00 AM Scheduled Provider: [facility] Appointment Type:NM Myocar Spect Multi Rest/Stress - St Appointment Date:08/08/2023 02:00:00 PM Scheduled Provider: Location:[facility] Appointment Type:Urology FT Appointment Date:08/08/2023 03:00:00 PM Scheduled Provider: Location:[facility] Appointment Type:Urology FT Appointment Date:08/15/2023 07:00:00 AM Scheduled Provider:Nancy Grace MD Location:[facility] Appointment Type:FM Open Appointment Date:08/19/2023 11:45:00 AM Scheduled Provider:Troy Coulter MD [facility] [place] Appointment Type:Cardiology Follow Up (FT) Appointment Date:07/09/2024 08:00:00 AM Scheduled Provider: Location:[facility] Appointment Type: Medicare Wellness Subsequent Future Scheduled Tests Laboratory* U Protein/Creat Ratio 07/14/23 * HgbA1c 07/14/23 * HgbA1c 07/26/23 * Microalbumin Level Urine 07/14/23 * CBC w/ Auto Diff 07/14/23 * Comprehensive Metabolic Panel 07/14/23 * Lipid Panel 07/14/23 Radiology* NM Myocardial Spect Rest/Stress 1 Day 08/05/23 * Echo Transthoracic Complete 08/02/23 [facility] 01-08-2020 Evaluation + Plan note Future Appointments Appointment Date:06/09/2023 08:00:00 AM Scheduled Provider: Location:.[facility] Appointment Type:CV Echo () Appointment Date:06/13/2023 08:00:00 AM Scheduled Provider:Nancy Grace MD [facility] Type:FM Open Appointment Date:07/11/2023 09:00:00 AM Scheduled Provider:Manolo ALLEN MD [facility]O New Patient Appointment Date:07/27/2023 02:00:00 PM Scheduled Provider: [facility] App[facility] Type: Medicare Wellness Subsequent Appointment Date:07/27/2023 02:40:00 PM Scheduled Provider:Nancy Grace MD [facility] Type: Open Future Scheduled Tests Radiology* Echo Transthoracic Complete 06/09/23 [facility] Future App[facility]ments Appointment Date:07/27/2023 02:00:00 PM Scheduled [facility]: [facility]FM Medicare Wellness Subsequent Appointment Date:07/27/2023 02:40:00 PM Scheduled Provider:Nancy Grace MD [facility]: [facility] Future Appointments Appointment Date:05/16/2023 07:20:00 AM Scheduled Provider:Nancy Grace [facility] Type:FM Open Appointment Date:07/27/2023 02:00:00 PM Scheduled Provider: [facility] Type: Medicare Wellness Subsequent Appointment Date:07/27/2023 02:40:00 PM Scheduled Provider:Nancy Grace MD [facility]: Open [facility] Future Appointments Appointment Date:05/16/2023 07:20:00 AM Scheduled Provider:Nancy Grace MD [facility] Type:FM Open Appointment Date:07/27/2023 02:00:00 PM Scheduled Provider: Location:[facility] Appointment Type: Medicare Wellness Subsequent Appointment Date:07/27/2023 02:40:00 PM Scheduled Provider:Nancy Grace MD [facility] Type:FM Open Diagnostic Tests Pending * Urine Culture 04/04/23 [facility] Future Appointments Appointment Date:07/11/2023 09:00:00 AM Scheduled Provider:Manolo ALLEN MD [facility] Type:URO New Patient Appointment Date:07/27/2023 02:00:00 PM Scheduled Provider: Location:[facility] Appointment Type: Medicare Wellness Subsequent Appointment Date:07/27/2023 02:40:00 PM Scheduled Provider:Nancy Grace MD Location:[facility] Appointment Type: Open Diagnostic Tests Pending * Urine Culture 05/16/23 Future Scheduled Tests Radiology* Echo Transthoracic Complete 05/16/23 [facility] Future Appointments Appointment Date:05/27/2023 08:20:00 AM Scheduled Provider: Location:[facility] Appointment Type:FM Nurse Visit Appointment Date:06/09/2023 08:00:00 AM Scheduled Provider: [facility] Type:CV Echo () Appointment Date:06/13/2023 08:00:00 AM Scheduled Provider:Nancy Grace MD [facility] Type: Open Appointment Date:07/11/2023 09:00:00 AM Scheduled Provider:Manolo ALLEN MD [facility] Type:URO New Patient Appointment Date:07/27/2023 02:00:00 PM Scheduled Provider: Location:[facility] Appointment Type: Medicare Wellness Subsequent Appointment Date:07/27/2023 02:40:00 PM Scheduled Provider:Nancy Grace MD [facility] Type:FM Open Diagnostic Tests Pending * Urine Culture 05/26/23 Future Scheduled Tests Laboratory* Basic Metabolic Panel 12/21/23 Radiology* Echo Transthoracic Complete 06/09/23 [facility] Future Appointments Appointment Date:06/13/2023 08:00:00 AM Scheduled Provider:Nancy Grace MD [facility] Type: Open Appointment Date:06/29/2023 10:15:00 AM Scheduled Provider:Kristel Tolentino MD Location:[facility] Appointment Type:URO New Patient Appointment Date:07/25/2023 02:00:00 PM Scheduled Provider: Location:[facility] Appointment Type: Medicare Wellness Subsequent Appointment Date:07/25/2023 03:00:00 PM Scheduled Provider:Nancy Grace MD Location:[facility] Future Appointments Appointment Date:06/29/2023 10:15:00 AM Scheduled Provider:Kristel Tolentino MD Location:[facility] Appointment Type:URO New Patient Appointment Date:07/14/2023 10:00:00 AM Scheduled Provider:Nancy Grace MD Location:[facility] Appointment Type: Open Appointment Date:07/15/2023 02:00:00 PM Scheduled Provider:Troy Coulter MD [facility] [place] Appointment Type:Cardiology New Patient (FT) Appointment Date:07/25/2023 02:00:00 PM Scheduled Provider: Location:[facility] Appointment Type: Medicare Wellness Subsequent Appointment Date:07/25/2023 03:00:00 PM Scheduled Provider:Nancy Grace MD Location:[facility] Plan note Future Appointments Appointment Date:06/22/2023 10:30:00 AM Scheduled Provider: [facility] Type:URO Nurse Visit Appointment Date:06/28/2023 07:45:00 AM Scheduled Provider:Nancy Grace MD Location:[facility] Appointment Type: Hospital Follow Up w/TCM Appointment Date:07/14/2023 10:00:00 AM Scheduled Provider:Nancy Grace MD Location:[facility] Appointment Type:FM Open Appointment Date:07/15/2023 02:00:00 PM Scheduled Provider:Troy Coulter MD [facility] Appoint[facility] Type:Cardiology New Patient (FT) Appointment Date:07/25/2023 02:00:00 PM Scheduled Provider: Location:[facility] Appointment Type: Medicare Wellness Subsequent Appointment Date:07/25/2023 03:00:00 PM Scheduled Provider:Nancy Grace MD Location:[facility] Appointment Type: Open [facility] evaluation + Plan note Future Appointments Appointment Date:06/23/2023 08:00:00 AM Scheduled Provider: Location:[facility] Appointment Type:URO Nurse Visit Appointment Date:06/28/2023 07:45:00 AM Scheduled Provider:Nancy Grace MD Location:[facility] Appointment Type: Hospital Follow Up w/TCM Appointment Date:07/14/2023 10:00:00 AM Scheduled Provider:Nancy Grace MD Location:[facility] Appointment Type: Open Appointment Date:07/15/2023 02:00:00 PM Scheduled Provider:Troy Coulter MD Location:[facility] Appointment Type:Cardiology New Patient (FT) Appointment Date:07/25/2023 02:00:00 PM Scheduled Provider: Location:[facility] Appointment Type: Medicare Wellness Subsequent Appointment Date:07/25/2023 03:00:00 PM Scheduled Provider:Nancy Grace MD Location:[facility] Appointment Type: Open [facility] evaluation + Plan note Future Appointments Appointment Date:06/28/2023 07:45:00 AM Scheduled Provider:Nancy Grace MD Location:[facility] Appointment Type: Hospital Follow Up w/TCM Appointment Date:07/14/2023 10:00:00 AM Scheduled Provider:Nancy Grace MD Location:[facility] Appointment Type:FM Open Appointment Date:07/15/2023 02:00:00 PM Scheduled Provider:Troy Coulter MD [facility] Appointment Type:Cardiology New Patient (FT) Appointment Date:07/25/2023 02:00:00 PM Scheduled Provider: Location:[facility] Appointment Type:FM Medicare Wellness Subsequent Appointment Date:07/25/2023 03:00:00 PM Scheduled Provider:Nancy Grace MD Location:[facility] Appointment Type: Open [facility] evaluation + Plan note Future Appointments Appointment Date:07/14/2023 10:00:00 AM Scheduled Provider:Nancy Grace MD Location:[facility] Appointment Type: Open Appointment Date:07/15/2023 02:00:00 PM Scheduled Provider:Troy Coulter MD [facility] Appointment Type:Cardiology New Patient (FT) Appointment Date:07/25/2023 02:00:00 PM Scheduled Provider: Location:[facility] Appointment Type: Medicare Wellness Subsequent Appointment Date:07/25/2023 03:00:00 PM Scheduled Provider:Nancy Grace MD [facility] Type: Open Appointment Date:08/08/2023 02:00:00 PM Scheduled Provider: Location:[facility] Appointment Type:Urology FT Appointment Date:08/08/2023 03:00:00 PM Scheduled Provider: Location:[facility] Appointment Type:[facility]rology FT [facility] Future Appointments Appointment Date:07/25/2023 02:00:00 PM Scheduled Provider: Location:[facility] Appointment Type: Medicare Wellness Subsequent Appointment Date:07/25/2023 03:00:00 PM Scheduled Provider:Nancy Grace MD Location:[facility] Appointment Type: Open Appointment Date:08/02/2023 08:00:00 AM Scheduled Provider: [facility] Appoint[facility] Type:CV Echo (FT) Appointment Date:08/08/2023 02:00:00 PM Scheduled Provider: Location:[facility] Appointment Type:Urology FT Appointment Date:08/08/2023 03:00:00 PM Scheduled Provider: Location:[facility] Appointment Type:Urology FT Appointment Date:08/19/2023 11:45:00 AM Scheduled Provider:Troy Coulter MD [facility] Appointment Type:Cardiology Follow Up (FT) Future Scheduled Tests Laboratory* U Protein/Creat Ratio 07/14/23 * HgbA1c 07/14/23 * Microalbumin Level Urine 07/14/23 * CBC w/ Auto Diff 07/14/23 * Comprehensive Metabolic Panel 07/14/23 * Lipid Panel 07/14/23 Radiology* Echo Transthoracic Complete 08/02/23 [facility] Future Appointments Appointment Date:08/05/2023 08:45:00 AM Scheduled Provider: [facility] Appointment Type:NM Myocard Spect Multi Rest/Stress-Res Appointment Date:08/05/2023 09:45:00 AM Scheduled Provider: [facility] Appointment Type:NM Myocard Spect Multi Rest/Stress - R Appointment Date:08/05/2023 10:15:00 AM Scheduled Provider: [facility] Appointment Type:NM Myocard Spect Multi Rest/Stress-Str Appointment Date:08/05/2023 11:15:00 AM Scheduled Provider: [facility] Appointment Type:NM Myocar Spect Multi Rest/Stress - St Appointment Date:08/15/2023 07:00:00 AM Scheduled Provider:Nancy Grace MD Location:[facility] Appointment Type:FM Open Appointment Date:08/19/2023 11:45:00 AM Scheduled Provider:Troy Coulter MD [facility] Appointment Type:Cardiology Follow Up (FT) Appointment Date:07/09/2024 08:00:00 AM Scheduled Provider: Location:[facility] Appointment Type:FM Medicare Wellness Subsequent Future Scheduled Tests Laboratory* U Protein/Creat Ratio 07/14/23 * HgbA1c 07/14/23 * HgbA1c 07/26/23 * Microalbumin Level Urine 07/14/23 * CBC w/ Auto Diff 07/14/23 * Comprehensive Metabolic Panel 07/14/23 * Lipid Panel 07/14/23 Radiology* NM Myocardial Spect Rest/Stress 1 Day 08/05/23 [facility] Future Appointments Appointment Date:08/08/2023 12:30:00 PM Scheduled Provider: [facility] Appointment Type:NM Myocard Spect Multi Rest/Stress-Res Appointment Date:08/08/2023 01:30:00 PM Scheduled Provider: [facility] Appointment Type:NM Myocard Spect Multi Rest/Stress - R Appointment Date:08/08/2023 02:00:00 PM Scheduled Provider: [facility] Appointment Type:NM Myocard Spect Multi Rest/Stress-Str Appointment Date:08/08/2023 03:00:00 PM Scheduled Provider: [facility] Appointment Type:NM Myocar Spect Multi Rest/Stress - St Appointment Date:08/11/2023 09:30:00 AM Scheduled Provider: Location:[facility] Appointment Type:Surgical PAT FT Appointment Date:08/15/2023 07:00:00 AM Scheduled Provider:Nancy Grace MD Location:[facility] Appointment Type: Open Appointment Date:08/19/2023 11:45:00 AM Scheduled Provider:Troy Coulter MD [facility] [place] Appointment Type:Cardiology Follow Up (FT) Appointment Date:09/01/2023 01:30:00 PM Scheduled Provider: Location:[facility] Appointment Type:Surgery FT Appointment Date:07/09/2024 08:00:00 AM Scheduled Provider: Location:[facility] Appointment Type:FM Medicare Wellness Subsequent Future Scheduled Tests Laboratory* U Protein/Creat Ratio 07/14/23 * HgbA1c 07/14/23 * HgbA1c 07/26/23 * Microalbumin Level Urine 07/14/23 * CBC w/ Auto Diff 07/14/23 * Comprehensive Metabolic Panel 07/14/23 * Lipid Panel 07/14/23 [facility] Future Appointments Appointment Date:08/15/2023 07:00:00 AM Scheduled Provider:Nancy Grace MD Location:[facility] Appointment Type: Open Appointment Date:08/19/2023 11:45:00 AM Scheduled Provider:Troy Coulter MD Location:[facility] Appointment Type:Cardiology Follow Up (FT) Appointment Date:09/01/2023 01:30:00 PM Scheduled Provider: Location:[facility] Appointment Type:Surgery FT Appointment Date:07/09/2024 08:00:00 AM Scheduled Provider: Location:[facility] Appointment Type: Medicare Wellness Subsequent Future Scheduled Tests Laboratory* U Protein/Creat Ratio 07/14/23 * HgbA1c 07/14/23 * HgbA1c 07/26/23 * Microalbumin Level Urine 07/14/23 * CBC w/ Auto Diff 07/14/23 * Comprehensive Metabolic Panel 07/14/23 * Lipid Panel 07/14/23 [facility] Future Appointments Appointment Date:08/19/2023 11:45:00 AM Scheduled Provider:Troy Coulter MD [facility] Appointment Type:Cardiology Follow Up (FT) Appointment Date:09/01/2023 01:30:00 PM Scheduled Provider: Location:[facility] Appointment Type:Surgery FT Appointment Date:07/09/2024 08:00:00 AM Scheduled Provider: Location:[facility] Appointment Type:FM Medicare Wellness Subsequent Diagnostic Tests Pending * Microalbumin Level Urine 08/15/23 * U Protein/Creat Ratio 08/15/23 Future Scheduled Tests Laboratory* U Protein/Creat Ratio 07/14/23 * HgbA1c 07/14/23 * HgbA1c 07/26/23 * Microalbumin Level Urine 07/14/23 * CBC w/ Auto Diff 07/14/23 * Comprehensive Metabolic Panel 07/14/23 * Lipid [facility] 07/14/23 [facility] App[facility]ments Appointment Date:09/01/2023 01:45:00 PM Scheduled Provider: Location:[facility] Appointment Type:Surgery FT Appointment Date:10/19/2023 12:00:00 PM Scheduled Provider:Troy Coulter MD [facility] Appoint[facility] Type:Cardiology Follow Up (FT) Appointment Date:07/09/2024 08:00:00 AM Scheduled Provider: Location:[facility] Appointment Type: Medicare Wellness Subsequent Future Scheduled Tests Laboratory* U Protein/Creat Ratio 07/14/23 * HgbA1c 07/14/23 * HgbA1c 07/26/23 * Microalbumin Level Urine 07/14/23 * CBC w/ Auto Diff 07/14/23 * Comprehensive Metabolic Panel 07/14/23 * Lipid Panel 07/14/23 [facility] Future App[facility]ments Appointment Date:10/19/2023 12:00:00 PM Scheduled Provider:Troy Coulter MD [facility] Type:Cardiology Follow Up (FT) Appointment Date:07/09/2024 08:00:00 AM Scheduled Provider: Location:[facility] Appointment Type:FM Medicare Wellness Subsequent Future Scheduled Tests Laboratory* U Protein/Creat Ratio 07/14/23 * HgbA1c 07/14/23 * HgbA1c 07/26/23 * Microalbumin Level Urine 07/14/23 * CBC w/ Auto Diff 07/14/23 * Comprehensive Metabolic Panel 07/14/23 * Lipid Panel 07/14/23 [facility] Future App[facility]ments Appointment Date:10/19/2023 12:00:00 PM Scheduled Provider:Troy Coulter MD [facility] Type:Cardiology Follow Up (FT) Appointment Date:01/10/2024 08:15:00 AM Scheduled Provider:Bryant TAO MD Location:[facility] Appointment Type:URO Office Visit Appointment Date:07/09/2024 08:00:00 AM Scheduled Provider: Location:[facility] Appointment Type:FM Medicare Wellness Subsequent Diagnostic Tests Pending * PSA Free & Total 12/05/23 Future Scheduled Tests Laboratory* U Protein/Creat Ratio 07/14/23 * HgbA1c 07/14/23 * HgbA1c 07/26/23 * Microalbumin Level Urine 07/14/23 * CBC w/ Auto Diff 07/14/23 * Comprehensive Metabolic Panel 07/14/23 * Lipid Panel 07/14/23 [facility] Evaluation + Plan note Future Appointments Appointment Date:11/22/2023 10:00:00 AM Scheduled Provider: Location:[facility] Services Appointment Type:Urology CALL PAT FT Appointment Date:11/28/2023 02:00:00 PM Scheduled Provider: [facility] Appointment Type:Urology FT Appointment Date:11/28/2023 03:00:00 PM Scheduled Provider: Location[facility] Appointment Type:Urology FT Appointment Date:12/16/2023 09:00:00 AM Scheduled Provider:Javier Goins MD [facility] Appointment Type:Cardiology Follow Up (FT) Appointment Date:01/10/2024 08:15:00 AM Scheduled Provider:Bryant TAO MD Location:[facility] Appointment Type:URO Office Visit Appointment Date:07/09/2024 08:00:00 AM Scheduled Provider: Location:[facility] Appointment Type: Medicare Wellness Subsequent Future Scheduled Tests Laboratory* U Protein/Creat Ratio 07/14/23 * HgbA1c 07/14/23 * HgbA1c 07/26/23 * Microalbumin Level Urine 07/14/23 * CBC w/ Auto Diff 07/14/23 * Comprehensive Metabolic Panel 07/14/23 * Lipid Panel 07/14/23 [facility] Future Appointments Appointment Date:12/16/2023 09:00:00 AM Scheduled Provider:Javier Goins MD [facility] Appointment Type:Cardiology Follow Up (FT) Appointment Date:01/10/2024 08:15:00 AM Scheduled Provider:Bryant TAO MD Location:[facility] Appointment Type:URO Office Visit Appointment Date:07/09/2024 08:00:00 AM Scheduled Provider: Location:[facility] Appointment Type: Medicare Wellness Subsequent Future Scheduled Tests Laboratory* U Protein/Creat Ratio 224 * HgbA1c 24 * HgbA1c 22024 * Microalbumin Level Urine 07/14/23 * CBC w/ Auto Diff 07/14/23 * Comprehensive Metabolic Panel 07/14/23 * Lipid Panel 07/14/23 [facility] Future Appointments Appointment Date:01/10/2024 08:15:00 AM Scheduled Provider:Bryant TAO MD Location:[facility] Appointment Type:URO Office Visit Appointment Date:01/13/2024 09:00:00 AM Scheduled Provider:Javier Goins MD Location:[facility] Appointment Type:Cardiology Follow Up (FT) Appointment Date:07/09/2024 08:00:00 AM Scheduled Provider: Location:[facility] Appointment Type: Medicare Wellness Subsequent Diagnostic Tests Pending * Urine Culture 12/22/23 Future Scheduled Tests Laboratory* U Protein/Creat Ratio 07/14/23 * HgbA1c 07/14/23 * HgbA1c 07/26/23 * Microalbumin Level Urine 07/14/23 * CBC w/ Auto Diff 07/14/23 * Comprehensive Metabolic Panel 07/14/23 * Lipid Panel 07/14/23 [facility] Future Appointments Appointment Date:01/10/2024 08:15:00 AM Scheduled Provider:Bryant TAO MD Location:[facility] Appointment Type:URO Office Visit Appointment Date:01/13/2024 09:00:00 AM Scheduled Provider:Javier Goins MD Location:[facility] Appointment Type:Cardiology Follow Up (FT) Appointment Date:07/09/2024 08:00:00 AM Scheduled Provider: Location:[facility] Appointment Type: Medicare Wellness Subsequent Diagnostic Tests Pending * Magnesium Level 12/22/23 Future Scheduled Tests Laboratory* U Protein/Creat Ratio 07/14/23 * HgbA1c 07/14/23 * HgbA1c 07/26/23 * Microalbumin Level Urine 07/14/23 * CBC w/ Auto Diff 07/14/23 * Comprehensive Metabolic Panel 07/14/23 * Lipid Panel 07/14/23 [facility] Future Appointments Appointment Date:01/10/2024 08:15:00 AM Scheduled Provider:Bryant TAO MD Location:[facility] Appointment Type:URO Office Visit Appointment Date:01/13/2024 09:00:00 AM Scheduled Provider:Javier Goins MD [facility] Appointment Type:Cardiology Follow Up (FT) Appointment Date:07/09/2024 08:00:00 AM Scheduled Provider: Location:[facility] Appointment Type: Medicare Wellness Subsequent Future Scheduled Tests Laboratory* U Protein/Creat Ratio 07/14/23 * HgbA1c 07/14/23 * HgbA1c 07/26/23 * Microalbumin Level Urine 07/14/23 * CBC w/ Auto Diff 07/14/23 * Comprehensive Metabolic Panel 07/14/23 * Lipid Panel 07/14/23 [facility] Future Appointments Appointment Date:01/11/2024 08:00:00 AM Scheduled Provider: Location:[facility] Appointment Type:FM Lab Draw Appointment Date:01/13/2024 09:00:00 AM Scheduled Provider:Javier Goins MD [facility] Appointment Type:Cardiology Follow Up (FT) Appointment Date:07/09/2024 08:00:00 AM Scheduled Provider: Location:[facility] Appointment Type: Medicare Wellness Subsequent Appointment Date:07/23/2024 08:15:00 AM Scheduled Provider:Bryant TAO MD Location:[facility] Appointment Type:URO Office Visit Diagnostic Tests Pending * PSA Free & Total 01/10/24 Future Scheduled Tests Laboratory* U Protein/Creat Ratio 07/14/23 * HgbA1c 07/14/23 * HgbA1c 07/26/23 * Microalbumin Level Urine 07/14/23 * CBC w/ Auto Diff 07/14/23 * Comprehensive Metabolic Panel 07/14/23 * Lipid Panel 07/14/23 * Magnesium Level 01/05/24 * Urine Culture 01/05/24 [facility] Evaluation + Plan note Future Appointments Appointment Date:01/13/2024 09:00:00 AM Scheduled Provider:Javier Goins MD [facility] Appointment Type:Cardiology Follow Up (FT) Appointment Date:07/09/2024 08:00:00 AM Scheduled Provider: Location:[facility] Appointment Type: Medicare Wellness Subsequent Appointment Date:07/23/2024 08:15:00 AM Scheduled Provider:Bryant TAO MD Location:[facility] Appointment Type:URO Office Visit Future Scheduled Tests Laboratory* U Protein/Creat Ratio 07/14/23 * HgbA1c 07/14/23 * HgbA1c 07/26/23 * Microalbumin Level Urine 07/14/23 * CBC w/ Auto Diff 07/14/23 * Comprehensive Metabolic Panel 07/14/23 * Lipid Panel 07/14/23 [facility] + Plan note Future Appointments Appointment Date:07/09/2024 08:00:00 AM Scheduled Provider: Location:[facility] Appointment Type: Medicare Wellness Subsequent Appointment Date:07/23/2024 08:15:00 AM Scheduled Provider:Bryant TAO MD Location:[facility] Appointment Type:URO Office Visit Future Scheduled Tests Laboratory* U Protein/Creat Ratio 07/14/23 * HgbA1c 07/14/23 * HgbA1c 07/26/23 * Microalbumin Level Urine 07/14/23 * CBC w/ Auto Diff 07/14/23 * Comprehensive Metabolic Panel 07/14/23 * Lipid Panel 07/14/23 [facility] evaluation + Plan note Future Appointments Appointment Date:07/24/2024 09:20:00 AM Scheduled Provider:TOSHIA Reddy APRN, [place] Location:[facility] Appointment Type:URO Office Visit Appointment Date:10/08/2024 08:15:00 AM Scheduled Provider:Nancy Grace MD Location:[facility] Appointment Type: Open Appointment Date:01/07/2025 08:15:00 AM Scheduled Provider:Nancy Grace MD Location:[facility] Appointment Type: Open Appointment Date:07/09/2025 08:00:00 AM Scheduled Provider: Location:[facility] Appointment Type: Medicare Wellness Subsequent Future Scheduled Tests Laboratory* U Protein/Creat Ratio 07/14/23 * HgbA1c 07/14/23 * HgbA1c 07/26/23 * Microalbumin Level Urine 07/14/23 * CBC w/ Auto Diff 07/14/23 * Comprehensive Metabolic Panel 07/14/23 * Lipid Panel 07/14/23 [facility] Evaluation + Plan note Future Appointments Appointment Date:08/21/2024 09:00:00 AM Scheduled Provider:TOSHIA Reddy APRN, [place] Location:[facility] Appointment Type:URO Office Visit Appointment Date:10/08/2024 08:15:00 AM Scheduled Provider:Nancy Grace MD Location:[facility] Appointment Type: Open Appointment Date:01/07/2025 08:15:00 AM Scheduled Provider:Nancy Grace MD Location:[facility] Appointment Type: Open Appointment Date:07/09/2025 08:00:00 AM Scheduled Provider: Location:[facility] Appointment Type: Medicare Wellness Subsequent Future Scheduled Tests Laboratory* U Protein/Creat Ratio 07/14/23 * HgbA1c 07/14/23 * HgbA1c 07/26/23 * Microalbumin Level Urine 07/14/23 * PSA Free & Total 07/24/24 * CBC w/ Auto Diff 07/14/23 * Comprehensive Metabolic Panel 07/14/23 * Lipid Panel 07/14/23 [facility] Evaluation + Plan note Future Appointments Appointment Date:08/21/2024 09:00:00 AM Scheduled Provider:TOSHIA Reddy APRN, [place] Location:[facility] Appointment Type:URO Office Visit Appointment Date:10/08/2024 08:15:00 AM Scheduled Provider:[facility] Appointment Date:01/07/2025 08:15:00 AM Scheduled Provider:Nancy Grace MD Location:[facility] Appointment Type: Open Appointment Date:07/09/2025 08:00:00 AM Scheduled Provider: Location:[facility] Appointment Type: Medicare Wellness Subsequent [facility] Evaluation + Plan note Future Appointments Appointment Date:09/03/2024 08:20:00 AM Scheduled Provider:RAMANDEEP PORTER PA-C Location:[facility] Appointment Type:URO Office Visit Appointment Date:10/08/2024 08:00:00 AM Scheduled Provider:N[facility] MD [facility] Type:FM Open Appointment Date:01/07/2025 08:15:00 AM Scheduled Provider:Nancy Grace MD Location:[facility] Appointment Type:FM Open Appointment Date:07/09/2025 08:00:00 AM Scheduled Provider: Location:[facility] Appointment Type:FM Medicare Wellness Subsequent [facility] Evaluation noteNo assessment information available [facility] Work Phone: Evaluation note* Diagnosis Carpal tunnel syndrome on both sides- Primary Carpal tunnel syndrome Polyneuropathy Unspecified hereditary and idiopathic peripheral neuropathy documented in this encounter [facility] HealthcareEvaluation note* Diagnosis Carpal tunnel syndrome of right wrist- Primary Pain of right hand documented in this encounter [facility] HealthcareEvaluation note* Diagnosis Encounter for other preprocedural examination documented [facility] Diagnosis Preop examination Unspecified pre-operative examination [facility] Narrative No data available for this section [facility] No data available for this section [facility] Discharge instructions Additional Instructions DISCHARGE INSTRUCTIONS FOR [...] your post-operative appointment in 1-2 weeks. 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 Procedures EMG Marino K[facility] [address] [place] [id number] Phone: tel: fax: Carlos Howe DO [address] [place] [address] Phone: tel: fax: Referral ID Status Reason Start Date Expiration Date V isits Requested Visits Authorized [id number] Closed Perform Procedure 05/22/2024 11/18/2024 1 1 [facility] Summary Purpose Family History No Family [...] CREATED AUTHOR AUTHOR'S ORGANIZ ATION 09/19/2023 [facility] DATE CREATED AUTHOR AUTHOR'S ORGANIZ ATION 12/26/2023 [facility] DATE CREATED AUTHOR AUTHOR'S ORGANIZ ATION 12/27/2023 [facility] DATE CREATED AUTHOR AUTHOR'S ORGANIZ ATION 12/29/2023 [facility] DATE CREATED AUTHOR AUTHOR'S ORGANIZ ATION 12/30/2023 [facility] DATE CREATED AUTHOR AUTHOR'S ORGANIZ ATION 12/31/2023 [facility] DATE CREATED AUTHOR AUTHOR'S ORGANIZ ATION 01/03/2024 [facility] DATE CREATED AUTHOR AUTHOR'S ORGANIZ ATION 01/08/2024 [facility] DATE CREATED AUTHOR AUTHOR'S ORGANIZ ATION 02/01/2024 [facility] DATE CREATED AUTHOR AUTHOR'S ORGANIZ ATION 02/03/2024 [facility] DATE CREATED AUTHOR AUTHOR'S ORGANIZ ATION 02/24/2024 [facility] DATE CREATED AUTHOR AUTHOR'S ORGANIZ ATION 07/11/2024 [facility] DATE CREATED AUTHOR AUTHOR'S ORGANIZ ATION 07/18/2024 [facility] DATE CREATED AUTHOR AUTHOR'S ORGANIZ ATION 07/26/2024 [facility] DATE CREATED AUTHOR AUTHOR'S ORGANIZ ATION 08/10/2024 [facility] DATE CREATED AUTHOR AUTHOR'S ORGANIZ ATION 08/17/2024 [facility] dical [facility] DATE CREATED AUTHOR AUTHOR'S ORGANIZ ATION 08/17/2024 [facility] DATE CREATED AUTHOR AUTHOR'S ORGANIZ ATION 08/21/2024 [facility] DATE CREATED AUTHOR AUTHOR'S ORGANIZ ATION 08/23/2024 [facility] DATE CREATED AUTHOR AUTHOR'S ORGANIZ ATION 08/25/2024 [facility] Patient Care team informatio [...] September 09, 2023 End: September 09, 2023 Field Return Repairer Relationship Specialty Start Date End Date Nancy Grace MD [address] [facility], [place] [id number] PCP - General Family Medicine 07/18/24 Field Return Repairer Relationship Specialty Start Date End Date Nancy Grace MD [address] [facility], [place] [id number] PCP - General Family Medicine 07/18/24 Field Return Repairer Relationship Specialty Start Date End Date Tyrese Mcgrath MD PCP - General Family Medicine 02/27/18 Field Return Repairer Relationship Specialty Start Date End Date Nancy Grace MD [address] [place] [facility] [place] [address] PCP - General Family Medicine 07/18/24 Field Return Repairer Relationship Specialty Start Date End Date Nancy Grace MD [address] [place] [address] PCP - General Family Medicine 07/18/24 Field Return Repairer Relationship Specialty Start Date End Date Nancy Grace MD [address] [place] [address] PCP - General Family Medicine 07/18/24 Goals [...] BE BASED ON THE PRIMARY CLINICAL RECORDS. [employer] [facility] provides no warranty or guarantee of the accuracy or completeness of information in this document.
[2024-08-25 09:22] LABS: Magnesium 1.3 mg/dL (1.8-2.4)
== END 2024-08-25 08:08 | disposition home or self-care (01) ==
PROVIDERS: PCP Family Medicine; Visit Provider Emergency Medicine
DX: E83.40 Disorders of magnesium metabolism, unspecified (principal)
CPT/HCPCS: 36415; 83735

== ENCOUNTER 2024-08-27 08:25 | Outpatient (RCR) | payer MEDICARE, OTHER, SELFPAY ==
[2024-08-27] MEDS: MAGNESIUM SULFATE IN WATER 2 GM/50 ML PREMIX IV (09:07)
[2024-08-27 09:08] VITALS: BP 156/82; PULSE 94; TEMP 36; O2SAT 98
[2024-08-27] MEDS: MAGNESIUM SULFATE/D5W 1 GM/100 ML PREMIX IV (09:40)
== END 2024-08-27 13:37 | disposition home or self-care (01) ==
LOC: INF 08:25
PROVIDERS: PCP Family Medicine
DX: E83.42 Hypomagnesemia (principal)
CPT/HCPCS: 96365; J3475

== ENCOUNTER 2024-10-17 07:39 | Outpatient (RCR) | payer MEDICARE, OTHER, SELFPAY ==
[2024-10-17 08:25] VITALS: BP 148/83; PULSE 89; TEMP 36.9; O2SAT 97
[2024-10-17 08:50] LABS: Magnesium 0.8 mg/dL (1.8-2.4)
[2024-10-17] MEDS: 0.9 % SODIUM CHLORIDE 250 ML 10 ML IV (09:00)
[2024-10-17] MEDS: MAGNESIUM SULFATE IN WATER 4 GM/100 ML PIGGYBACK IV (09:05)
--- NOTE | 2024-10-17 09:12 | PC.NURSE ---
085 lab called to update this inspector automatic typewriter of a critical low magnesium. Patient is here for a magnesium infusion pharmacy to dose per physician's order.
== END 2024-10-18 07:45 | disposition home or self-care (01) ==
LOC: INF 07:39
PROVIDERS: PCP Family Medicine; Visit Provider Family Medicine
DX: E83.42 Hypomagnesemia (principal)
CPT/HCPCS: 36415; 83735; 96365; 96366; J3475

== ENCOUNTER 2025-01-11 07:29 | Outpatient (RCR) | payer MEDICARE, OTHER, SELFPAY ==
[2025-01-11 08:25] VITALS: BP 167/90; PULSE 96; TEMP 36.3; O2SAT 96
[2025-01-11] MEDS: MAGNESIUM SULFATE IN WATER 4 GM/100 ML PIGGYBACK IV (08:45)
--- NOTE | 2025-01-11 09:40 | PC.NURSE ---
Tolerating infusion without c/o. Denies needs.
== END 2025-02-03 23:59 | disposition home or self-care (01) ==
LOC: INF 07:29
PROVIDERS: PCP Nurse Practitioner Family; Visit Provider Nurse Practitioner Family
DX: E83.42 Hypomagnesemia (principal)
CPT/HCPCS: 96365; 96366; J3475

== ENCOUNTER 2025-03-20 06:13 | Outpatient (OUT) | payer MEDICARE, OTHER, SELFPAY ==
--- OUTSIDE RECORDS SUMMARY | 2025-03-20 06:17 | XMS_ITS | CCD ---
Author Organization [facility] Care Team Providers Care Higher Education Administrator Name Role Phone DR TYRESE MCGRATH Admitting Unavailable DR TYRESE MCGRATH Attending Unavailable DR TYRESE MCGRATH Primary Care Unavailable DR TYRESE MCGRATH Consulting Unavailable Nancy Grace Primary Care Physician [phone] GINO Porter Attending Provider MD Nancy Grace [...] MD Nancy Grace Attending Unavailable Nancy Grace EMalgorzata Attending Unavailable Ruiz Nancy E. Admitting Unavailable Nancy Grace EMalgorzata Attending Unavailable Ruiz Nancy E. Admitting Unavailable RossNancy E. Attending Unavailable Akkina, Ramos Admitting Unavailable Akkina, Ramos Attending Unavailable Nancy Grace E. Attending Unavailable Ruiz Nancy E. Admitting Unavailable Akkina, Ramos Attending Unavailable Akkina, Ramos Admitting Unavailable Unavailable Primary Care Provider Unavailabl e Nancy Grace Attending Unavailable Nancy Grace E. Admitting Unavailable Nancy Grace EMalgorzata Attending Unavailable Nancy Grace EMalgorzata Admitting Unavailable Nancy Grace Attending Unavailable Nancy Grace MD Primary Care Provider Estefania Reddy Attending Unavailable Nancy Grace Attending Unavailable Nancy Grace EMalgorzata Admitting Unavailable Nancy Grace EMalgorzata Admitting Unavailable Nancy Grace Attending Unavailable Tyrese Mcgrath MD Primary Care Provider NONE, XXXX Referring Unavailable MD Javier Goins Attending Unavailable COOK Bryant P Attending Unavailable Nancy Grace Attending Unavailable Nancy Grace Attending Unavailable SHIRA, ANTHROPOLOGIST MARINO A Attending Unavailabl e COOK, Bryant P Attending Unavailable COOK, Bryant P Attending Unavailable COOK Bryant P Attending Unavailable COOK, Bryant P Referring Unavailable COOK, Bryant P Admitting Unavailable COOK, Bryant P Referring Unavailable COOK, Bryant P Admitting Unavailable COOK, Bryant P Attending Unavailable SHIRA, ANTHROPOLOGIST MARINO A Admitting Unavailabl e SHIRA, ANTHROPOLOGIST MARINO A Attending Unavailabl e Nancy Grace Admitting Unavailable Nancy Grace. Attending Unavailable SHIRA, ANTHROPOLOGIST MARINO A Admitting Unavailabl e SHIRA, ANTHROPOLOGIST MARINO A Attending Unavailabl e Jacinto Ramirez Attending Unavailable NONE, XXXX Referring Unavailable NONE, XXXX Referring Unavailable Troy Coulter Attending UnavailCHLOE Snow Referring Unavailable TYRESE MCGRATH Primary Care Unavailable MD Nancy Grace Admitting Unavailable MD Nancy Grace Attending Unavailable MD Nancy Grace Attending Unavailable MD Nancy Grace Admitting Unavailable MD Nancy Grace Attending Unavailable Estefania Reddy Attending Unavailable Nancy Grace Admitting Unavailable Nancy Grace Attending Unavailable Nancy Grace Attending Unavailable Nancy Grace Admitting Unavailable Nancy Grace Attending Unavailable RAMANDEEP PORTER Attending Unavailable Bryant TAO Attending Unavailable MINDIRAMANDEEP PEDRAZA Admitting Unavailable MINDIRAMANDEEP PEDRAZA Attending Unavailable Nancy Grace Attending Unavailable Nancy Grace Admitting Unavailable JR. DILLON GEORGE C Attending Unavaila CHLOE Rojas Attending Unavailable CARLOS HOWE Attending Unavailable SHIRA MARINO A Referring Unavailable CHLOE HAWTHORNE Attending Unavailable CHLOE HAWTHORNE Attending Unavailable SHIRA, MARINO A Admitting Unavailable SHIRA MARINO A Attending Unavailable MD Nancy Grace Admitting Unavailable MD Nancy Grace Attending Unavailable SHIRA, MARINO A Attending Unavailable Nancy Grace Attending Unavailable Nancy Grace Attending Unavailable SHIRA, CHACORTA MARINO A Attending Unavailabl e Nancy Grace Admitting Unavailable Nancy Grace Attending Unavailable SHIRA, CHACORTA MARINO A Attending Unavailabl e Nancy Grace Attending Unavailable SHIRA, ANTHROPOLOGIST MARINO A Admitting Unavailabl e SHIRA, ANTHROPOLOGIST MARINO A Attending Unavailabl e SHIRA, ANTHROPOLOGIST MARINO A Attending Unavailabl e SHIRA, MARINO A Attending Unavailable SHIRA, MARINO A Admitting Unavailable SHIRA, MARINO A Attending Unavailable SHIRA, MARINO A Attending Unavailable SHIRA, MARINO A Admitting Unavailable SHIRA, MARINO A Attending Unavailable SHIRA, MARINO A Admitting Unavailable SHIRA, MARINO A Attending Unavailable SHIRA, MARINO A Admitting Unavailable SHIRA, MARINO A Attending Unavailable SHIRA, MARINO A Attending Unavailable SHIRA, MARINO A Admitting Unavailable SHIRA, MARINO A Attending Unavailable SHIRA, ANTHROPOLOGIST MARINO A Attending Unavailabl e SHIRA, ANTHROPOLOGIST MARINO A Admitting Unavailabl e Bryant TAO Attending Unavailable Bryant TAO Attending Unavailable Nancy Grace Attending Unavailable Nancy Grace Admitting Unavailable GINO PORTER Attending Unavailab le GINO PORTER Admitting Unavailab le Ivania Parada DO Primary Care Provider Ivania Parada DO Attending Provider [phone] Allergies Allergy Classification Reported Allergen(s) Allergy Type Date of Onset Reaction(s) Facility (20 sources) celecoxib; Translations: [CeleBREX] Drug Allergy [facility] (1 source) Cetirizine Drug Allergy [facility] (20 sources) celecoxib; Translations: [celecoxib] Drug Allergy Unknown (qualifier value), Anxiety (finding) [facility] (10 sources) celecoxib Drug Allergy Anxiety, Unknown [facility] Medications Current Medications Medication Drug Class(es) Dates Sig (Normalized) Sig (Original) 0.25 MG, 0.5 MG Dose 3 ML semaglutide 0.68 MG/ML Pen Injector [Ozempic] (4 sources) Start: 07-16-2024 Ozempic 2 mg/3 mL (0.25 mg or 0.5 mg dose) subcutaneous solution 0.25 mg, SubCutaneous, qWeek, # 3 mL, Refills(s) 0, [facility]acy: [id number], 175.3, cm, 07/16/24 8:18:00 EST, Height/Length Dosing, 114, kg, 07/16/24 8:18:00 EST, Weight Dosing Start Date: 07/16/24 Status: Ordered Quantity: 3.0 Unit: mL Repeat number: 1 Indications: Personal history of nicotine dependence; Type 2 diabetes mellitus with other specified complication; Body mass index [BMI] 37.0-37.9, adult; Obesity, unspecified; Hypomagnesemia; Start: 07-16-2024 Ozempic 2 mg/3 mL (0.25 mg or 0.5 mg dose) subcutaneous solution 0.25 mg, SubCutaneous, qWeek, # 3 mL, Refills(s) 0, Pharmacy: [facility] #[id number], 175.3, cm, 07/16/24 8:18:00 EST, Height/Length Dosing, 114, kg, 07/16/24 8:18:00 EST, Weight Dosing Start Date: 07/16/24 Status: Ordered acetaminophen 325 mg oral tablet (3 sources) Start: 12-30-2023 take 2 tablets by mouth every six hours as needed for pain acetaminophen 325 mg Tab 650 mg = 2 tab(s), Oral, q6hr, PRN Pain, Refills(s) 0 Start Date: 12/30/23 Status: Ordered acetaminophen 325 mg / HYDROcodone bitartrate 5 mg oral tablet (1 source) Opioid Agonist Start: 11-14-2024 acetaminophen-hydr ocodone 325 mg-5 mg oral tablet Refill(s) 0, 12 tab(s), 0 Refill(s) Start Date: 11/14/24 Status: Ordered Repeat number: 1 amLODIPine 5 mg oral tablet (20 sources) Dihydropyridine Calcium Channel Pooja Start: 10-16-2024 amLODIPine 5 mg Tab See Instructions, TAKE 1 TABLET DAILY, # 90 tab(s), Refills(s) 3, Pharmacy: [facility], 174, cm, 10/08/24 7:59:00 EDT, Height/Length Dosing, 113, kg, 10/08/24 7:59:00 EDT, Weight Dosing Start Date: 10/16/24 Status: Ordered Quantity: 90.0 Unit: tab(s) Repeat number: 1 Start: 09-09-2023 take 10 mg by mouth once daily Amlodipine Active 10 MG PO Daily September 09, 2023 12:00am Start: 08-19-2023 take 2 tablets by mo [facility] once daily Amlodipine 5 mg tablet Active 10 MG PO Daily September 09, 2023 12:00am Complies with drug therapy Start: 08-15-2023 amLODIPine 5 m g Tab See Instructions, TAKE 1 TABLET DAILY, # 90 tab(s), Refills(s) 1, Pharmacy: [facility], 175.3, cm, 01/13/24 9:06:00 EDT, Height/Length Dosing, 110.9, kg, 01/13/24 9:06:00 EDT, Weight Dosing Start Date: 01/30/24 Status: Ordered amoxicillin 500 mg oral capsule (2 sources) Penicillin-class Antibacterial Start: 01-05-2024 take 1 capsule by mouth every twelve hours amoxicillin 500 mg Cap 500 mg = 1 cap(s), Oral, q12hr, # 20 cap(s), Refills(s) 0, Pharmacy: [facility]/pharmacy #[id number], 175.3, cm, 01/05/24 7:50:00 EDT, Height/Length Dosing, 110, kg, 01/05/24 7:50:00 EDT, Weight Dosing Start Date: 01/05/24 Status: Ordered aspirin 81 mg delayed release oral tablet (19 sources) Platelet Aggregation Inhibitor, Nonsteroidal Anti-inflammatory Drug Start: 06-13-2023 take 1 tablet by mouth once daily aspirin 81 mg Oral EC Tab 81 mg = 1 tab(s), Oral, Daily, # 90 tab(s), Refills(s) 0, Pharmacy: [facility], 174.5, cm, 06/13/23 8:07:00 EST, Height/Length Dosing, 102.3, kg, 06/13/23 8:07:00 EST, Weight Dosing Start Date: 06/13/23 Status: Ordered atorvastatin 40 mg oral tablet (20 sources) HMG-CoA Reductase Inhibitor Start: 03-15-2025 take 1 tablet by mouth once daily Atorvastatin 40 mg tablet Active 40 MG PO Daily March 15, 2025 12:00am Complies with drug therapy Start: 01-30-2024 atorvastatin 4 0 mg Tab See Instructions, TAKE 1 TABLET DAILY, # 90 tab(s), Refills(s) 3, Pharmacy: [facility], 175.3, cm, 07/09/24 8:31:00 EST, Height/Length Dosing, 114.2, kg, 07/09/24 8:31:00 EST, Weight Dosing Start Date: 07/10/24 Status: Ordered Quantity: 90.0 Unit: tab(s) Repeat number: 1 Start: 06-13-2023 take 1 tablet by marly th once daily atorvastatin 40 mg Tab 40 mg = 1 tab(s), Oral, Daily, # 90 tab(s), Refills(s) 1, Pharmacy: [facility], 174.5, cm, 06/13/23 8:07:00 EST, Height/Length Dosing, 102.3, kg, 06/13/23 8:07:00 EST, Weight Dosing Start Date: 06/13/23 Status: Ordered Start: 02-14-2023 take 1 tablet by marly th at bedtime atorvastatin 20 mg Tab 20 mg = 1 tab(s), Oral, Bedtime, # 90 tab(s), Refills(s) 1, Pharmacy: [facility], 174.5, cm, 02/14/23 7:27:00 EDT, Height/Length Dosing, 115.8, kg, 02/14/23 7:27:00 EDT, Weight Dosing Start Date: 02/14/23 Status: Ordered Start: 01-13-2023 take 1 tablet by marly th at bedtime atorvastatin 20 mg Tab 20 mg = 1 tab(s), Oral, Bedtime, Refills(s) 0 Start Date: 01/13/23 Status: Ordered ciprofloxacin 500 mg oral tablet (15 sources) Quinolone Antimicrobial Start: 11-14-2024 End: 11-21-2024 take 1 tablet by mouth every twelve hours Cipro 500 mg Tab 500 mg = 1 tab(s), Oral, q12hr, X 7 day(s), # 14 tab(s), Refills(s) 0, [id number] 174, cm, 11/14/24 10:26:00 EDT, Height/Length Dosing, 112.9, kg, 11/14/24 10:26:00 EDT, Weight Dosing Start Date: 11/14/24 Stop Date: 11/21/24 Status: Ordered Quantity: 14.0 Unit: tab(s) Repeat number: 1 Indications: Dizziness and giddiness; Other microscopic hematuria; Start: 12-22-2023 End: 12-29-2023 take 1 tablet by mouth every twelve hours Cipro 500 mg Tab 500 mg = 1 tab(s), Oral, q12hr, X 7 day(s), # 14 tab(s), Refills(s) 0, Pharmacy: [facility], 172, cm, 12/22/23 7:41:00 EDT, Height/Length Dosing, 107.8, kg, 12/22/23 7:41:00 EDT, Weight Dosing Start Date: 12/22/23 Stop Date: 12/29/23 Status: Ordered Start: 09-27-2023 Cipro 500 mg T ab See Instructions, Take 1 tab day prior to procedure and 1 tab day of procdure - afterwards, # 2 tab(s), Refills(s) 0, [id number], 174.5, cm, 09/22/23 12:37:00 EDT, Height/Length Dosing, 105.9, kg, 09/22/23 12:37:00 EDT, Weight Dosing Start Date: 09/27/23 Status: Ordered Start: 08-03-2023 take 1 tablet by marly th twice daily Cipro 500 mg Tab 500 mg = 1 tab(s), Oral, BID, start 3 days prior to procedure, # 14 tab(s), Refills(s) 0, Pharmacy: [facility]/pharmacy #[id number], 174.5, cm, 07/27/23 11:17:00 EST, Height/Length Dosing, 102.3, kg, 07/27/23 11:17:00 EST, Weight Dosing Start Date: 08/03/23 Status: Ordered Start: 06-28-2023 Cipro 500 mg T ab See Instructions, Take 1 tab day prior to procedure and 1 tab day of procdure - afterwards, # 2 tab(s), Refills(s) 0, Pharmacy: [facility]/pharmacy #[id number], 175.4, cm, 06/28/23 7:53:00 EST, [...] BID, # 180 tab(s), Refills(s) 0, Pharmacy: [facility], 172, cm, 12/27/23 7:51:00 EDT, Height/Length Dosing, 109.8, kg, 12/27/23 7:51:00 EDT, Weight Dosing Start Date: 12/27/23 Status: Ordered Freestyle Alejandra 2 Flash Glucose Monitoring 14 Day System ([place]) (6 sources) Start: 02-14-2023 Freestyle Alejandra 2 Flash Glucose Monitoring 14 Day System ([place]) Freestyle Alejandra 2 Flash Glucose Monitoring 14 Day System ([place]), See Instructions, 1 EA, 0, Freestyle Alejandra Flash Glucose Monitoring 14 Day System ([place]), [facility] #[id number], Supply, 174.5, cm, 02/14/23 7:27:00 EDT, Height/Length Dosing, 115.8, kg, 02/14/23 7:27:00 EDT, Weight Dosing Start Date: 02/14/23 Status: Ordered Freestyle Alejandra Flash 2 Glucose Monitoring 14 Day System (Sensor) (6 sources) Start: 02-14-2023 Freestyle Alejandra Flash 2 Glucose Monitoring 14 Day System (Sensor) Freestyle Alejandra Flash 2 Glucose Monitoring 14 Day System (Sensor), See Instructions, 6 EA, 0, Freestyle Alejandra Flash Glucose Monitoring 14 Day System (Sensor). Replace sensor every 14 days., [facility] #[id number], Supply, 174.5, cm, 02/14/23 7:27:00 EDT, Height/Length Dosing, 115.8, kg, 02/14/23 7:27:00 EDT, Weight Dosing Start Date: 02/14/23 Status: Ordered hydroCHLOROthiazide 12.5 mg / lisinopril 20 mg oral tablet (20 sources) Thiazide Diuretic, Angiotensin Converting Enzyme Inhibitor Start: 10-19-2023 hydrochlorothiazid e-lisinopril 12.5 mg-20 mg Tab 1 tab(s), Oral, Daily, 90 tab(s), Refill(s) 0, other reason (Rx) Start Date: 10/19/23 Status: Ordered Start: 05-18-2017 End: 09-09-2023 take 1 tablet by mouth once daily Lisinopril-Hydrochlorothiazide 20-12.5 t ablet Discontinued 1 TAB PO Daily May 18, 2017 1:00am September 09, 2023 11:40am Start: 04-04-2017 End: 05-18-2017 take 1 tablet by mouth once daily Lisinopril-Hydrochlorothiazide 10-12.5 m g Tablet Discontinued 1 TAB PO Daily April 04, 2017 12:00am May 18, 2017 1:12pm levoFLOXacin 500 mg oral tablet (1 source) Quinolone Antimicrobial Start: 12-30-2023 End: 01-09-2024 take 1 tablet by mouth every twenty-four hours Levaquin 500 mg Tab 500 mg = 1 tab(s), Oral, q24hr, X 10 day(s), # 10 tab(s), Refills(s) 0, Pharmacy: [facility]/pharmacy #[id number], 172, cm, 12/29/23 13:54:00 EDT, Height/Length Dosing, 109.8, kg, 12/29/23 13:54:00 EDT, Weight Dosing Start Date: 12/30/23 Stop Date: 01/09/24 Status: Ordered lisinopril 40 mg oral tablet (20 sources) Angiotensin Converting Enzyme Inhibitor Start: 03-15-2025 take 1 tablet by mouth once daily Lisinopril 40 mg tablet Active 40 MG PO Daily March 15, 2025 12:00am Complies with drug therapy Start: 12-30-2023 take 1 tablet by marly once daily lisinopril 40 mg Tab 40 mg = 1 tab(s), Oral, Daily, # 90 tab(s), Refills(s) 4, Pharmacy: [facility], 175.3, cm, 01/13/24 9:06:00 EDT, Height/Length Dosing, 110.9, kg, 01/13/24 9:06:00 EDT, Weight Dosing Start Date: 05/07/24 Status: Ordered Quantity: 90.0 Unit: tab(s) Repeat number: 5 Start: 12-30-2023 End: 12-30-2023 lisinopril 20 mg Tab 40 mg = 2 tab(s), Tab, Oral, NOW, Start date 12/30/23 12:26:00 PM EDT, 12/30/23 12:26:00 EDT Start Date: 12/30/23 Stop Date: 12/30/23 Status: Completed 24 hr metFORMIN hydrochloride 500 mg extended release oral tablet (20 sources) Biguanide Start: 10-08-2024 take 2 tablets by mouth twice daily Glucophage XR 500 mg Tab-ER 1,000 mg = 2 tab(s), Oral, BID, # 360 tab(s), Refills(s) 3, Pharmacy: [facility], 174, cm, 10/08/24 7:59:00 EDT, Height/Length Dosing, 113, kg, 10/08/24 7:59:00 EDT, Weight Dosing Start Date: 10/08/24 Status: Ordered Quantity: 360.0 Unit: tab(s) Repeat number: 4 Start: 04-12-2024 take 2 tablets by mo uth twice daily Glucophage XR 500 mg Tab-ER 1,000 mg = 2 tab(s), Oral, BID, # 360 tab(s), Refills(s) 1, Pharmacy: [facility], 175.3, cm, 01/13/24 9:06:00 EDT, Height/Length Dosing, 110.9, kg, 01/13/24 9:06:00 EDT, Weight Dosing Start Date: 04/12/24 Status: Ordered Start: 07-26-2023 take 2 tablets by mo uth twice daily Glucophage XR 500 mg Tab-ER 1,000 mg = 2 tab(s), Oral, BID, # 360 tab(s), Refills(s) 1, Pharmacy: [facility], 174, cm, 07/26/23 10:21:00 EST, Height/Length Dosing, 104.8, kg, 07/26/23 10:21:00 EST, Weight Dosing Start Date: 07/26/23 Status: Ordered Start: 06-13-2023 take 2 tablets by [facility] twice daily Glucophage XR 500 mg Tab-ER 1,000 mg = 2 tab(s), Oral, BID, # 360 tab(s), Refills(s) 1, Pharmacy: [facility], 174.5, cm, 06/13/23 8:07:00 EST, Height/Length Dosing, 102.3, kg, 06/13/23 8:07:00 EST, Weight Dosing Start Date: 06/13/23 Status: Ordered Start: 11-15-2022 End: 11-10-2023 take 2 tablets by mouth once daily metformin 500 mg Tab 1,000 mg = 2 tab(s), Oral, Daily, X 90 day(s), # 180 tab(s), Refills(s) 3, Pharmacy: [facility] Start Date: 11/15/22 Stop Date: 11/10/23 Status: Ordered Start: 04-04-2017 End: 03-18-2025 take 1 tablet by mouth twice daily Metformin 500 mg Tablet Discontinued 500 MG PO Twice daily April 04, 2017 12:00am March 18, 2025 9:17am metFORMIN (Gluco phage) 500 MG tablet every 12 (twelve) hours Active 24 hr metoprolol succinate 25 mg extended release oral tablet (20 sources) beta-Adrenergic Pooja Start: 08-19-2023 take 1 tablet by mouth once daily Metoprolol Succinate 25 mg tablet extended release 24 hr Active 25 MG PO Daily September 09, 2023 12:00am Complies with drug therapy [facility] D[facility] Prescription (20 sources) Start: 05-26-2023 Start: 05-26-2023 [facility] Presc ription [facility] Prescription, See Instructions, 1 kit(s), 0, One Touch Ultra 2 glucose meter kit Use to tests sugars daily E11.9, [facility], Supply, 174.5, cm, 05/26/23 9:14:00 EST, Height/Length Dosing, 109.1, kg, 05/26/23 9:14:00 EST, Weight Dosing Start Date: 05/26/23 Status: Ordered Multiple Vitamins Tab (1 source) Start: 11-15-2012 take 1 tablet by mouth once daily Multiple Vitamins Tab 1 tab(s), Oral, Daily, Refill(s) 0, Prophylaxis Start Date: 11/15/12 Status: Ordered naproxen sodium 220 mg oral tablet (20 sources) Nonsteroidal Anti-inflammatory Drug Start: 01-13-2024 take 220 mg by mouth every twelve hours as needed Aleve 220 mg, Oral, q12hr, se as needed, Refills(s) 0 Start Date: 01/13/24 Status: Ordered Repeat number: 1 Start: 05-13-2017 End: 05-19-2017 take 2 tablets [...] MOUTH EVERY DAY, # 90 cap(s), Refills(s) 4, Pharmacy: [facility]/pharmacy #[id number], 174, cm, 09/03/24 8:26:00 EDT, Height/Length Dosing, 112, kg, 09/03/24 8:26:00 EDT, Weight Dosing Start Date: 09/04/24 Status: Ordered Quantity: 90.0 Unit: cap(s) Repeat number: 5 Start: 01-10-2024 take 1 capsule by mo uth once daily omeprazole 20 mg Cap-DR 20 mg = 1 cap(s), Oral, Daily, # 30 cap(s), Refills(s) 0 Start Date: 01/10/24 Status: Ordered Start: 08-15-2023 omeprazole 40 mg Cap-DR See Instructions, TAKE 1 CAPSULE DAILY, # 90 cap(s), Refills(s) 1, Pharmacy: [facility], 172, cm, 10/19/23 8:14:00 EDT, Height/Length Dosing, 108.4, kg, 10/19/23 8:26:00 EDT, Weight Dosing Start Date: 11/14/23 Status: Ordered Start: 07-26-2023 take 1 capsule by mo uth once daily omeprazole 40 mg Cap-DR 40 mg = 1 cap(s), Oral, Daily, # 90 cap(s), Refills(s) 0, Pharmacy: [facility], 174, cm, 07/26/23 10:21:00 EST, Height/Length Dosing, 104.8, kg, 07/26/23 10:21:00 EST, Weight Dosing Start Date: 07/26/23 Status: Ordered Start: 01-20-2023 take 1 capsule by mo uth once daily omeprazole 40 mg Cap-DR 40 mg = 1 cap(s), Oral, Daily, # 90 cap(s), Refills(s) 0, Pharmacy: [facility], 174.5, cm, 06/21/23 13:33:00 EST, Height/Length Dosing, 102.3, kg, 06/21/23 13:33:00 EST, Weight Dosing Start Date: 06/23/23 Status: Ordered ondansetron 4 mg disintegrating oral tablet (3 sources) Serotonin-3 Receptor Antagonist Start: 03-18-2025 take 1 tablet by mouth every eight hours as needed for nausea and vomiting Ondansetron 4 mg tablet,disintegrating Active 4 MG PO Every 8 hours as needed for nausea and vomiting March 18, 2025 12:00am Complies with drug therapy Start: 09-09-2023 End: 03-15-2025 Ondansetron 4 mg tablet,disi ntegrating Discontinued 4 MG TRANSLINGU Every 8 hours as needed for nausea September 09, 2023 12:00am March 15, 2025 8:39am potassium chloride 10 meq extended release oral capsule (20 sources) Start: 10-19-2023 take 1 capsule by mouth once daily potassium chloride 10 mEq Cap-ER See Instructions, TAKE 1 CAPSULE BY MOUTH EVERY DAY, # 90 cap(s), Refills(s) 3, Pharmacy: [facility], 172, cm, 10/19/23 8:14:00 EDT, Height/Length Dosing, 108.4, kg, 10/19/23 8:26:00 EDT, Weight Dosing Start Date: 10/19/23 Status: Ordered Quantity: 90.0 Unit: cap(s) Repeat number: 4 Start: 09-09-2023 End: 03-18-2025 take 1 capsule by mouth once daily potassium chloride 10 mEq Cap-ER See Instructions, TAKE 1 CAPSULE BY MOUTH EVERY DAY, # 90 cap(s), Refills(s) 1, Pharmacy: [id number], 172, cm, 08/19/23 11:59:00 EDT, Height/Length Dosing, 106, kg, 08/19/23 11:59:00 EDT, Weight Dosing Start Date: 09/13/23 Status: Ordered Start: 08-18-2023 take 1 capsule by [facility] once daily potassium chloride 10 mEq Cap-ER 10 mEq = 1 cap(s), Oral, Daily, # 30 cap(s), Refills(s) 0, Pharmacy: [facility]/pharmacy #[id number], 172, cm, 08/15/23 7:04:00 EDT, Height/Length Dosing, 107.2, kg, 08/15/23 7:04:00 EDT, Weight Dosing Start Date: 08/18/23 Status: Ordered Start: 06-15-2023 take 1 capsule by [facility] once daily potassium chloride 10 mEq Cap-ER 10 mEq = 1 cap(s), Oral, Daily, # 30 cap(s), Refills(s) 0, [id number], 175, cm, 06/14/23 10:52:00 EST, Height/Length Dosing, 102.3, kg, 06/14/23 10:52:00 EST, Weight Dosing Start Date: 06/15/23 Status: Ordered Start: 05-26-2023 End: 06-02-2023 take 1 tablet by mouth twice daily Potassium Chloride (Eqv-K-Tab) 20 mEq oral tablet, extended release 20 mEq = 1 tab(s), Oral, BID, X 7 day(s), # 14 tab(s), Refills(s) 0, [id number], 174.5, cm, 05/26/23 9:14:00 EST, Height/Length Dosing, 109.1, kg, 05/26/23 9:14:00 EST, Weight Dosing Start Date: 05/26/23 Stop Date: 06/02/23 Status: Ordered tamsulosin hydrochloride 0.4 mg oral capsule (20 sources) alpha-Adrenergic Pooja Start: 03-15-2025 take 1 capsule by mouth once daily Tamsulosin 0.4 mg capsule Active 0.4 MG PO Daily March 15, 2025 12:00am Complies with drug therapy Start: 05-07-2024 take 1 capsule by [facility] every twenty-four hours tamsulosin (Flomax) 0.4 MG 24 hr capsule Take 0.4 mg by mouth 05/07/2024 Active Start: 05-07-2024 take 1 capsule by [facility] once daily in the evening tamsulosin 0.4 mg Cap 0.4 mg = 1 cap(s), Oral, qPM, # 90 cap(s), Refills(s) 4, Pharmacy: [facility], 175.3, cm, 01/13/24 9:06:00 EDT, Height/Length Dosing, 110.9, kg, 01/13/24 9:06:00 EDT, Weight Dosing Start Date: 05/07/24 Status: Ordered Quantity: 90.0 Unit: cap(s) Repeat number: 5 Start: 01-20-2024 take 1 capsule by [facility] once daily in the evening tamsulosin 0.4 mg Cap 0.4 mg = 1 cap(s), Oral, qPM, # 90 cap(s), Refills(s) 3, Pharmacy: [facility], 175.3, cm, 01/13/24 9:06:00 EDT, Height/Length Dosing, 110.9, kg, 01/13/24 9:06:00 EDT, Weight Dosing Start Date: 01/20/24 Status: Ordered Start: 06-14-2023 take 1 capsule by mo [facility] once daily in the evening tamsulosin 0.4 mg Cap 0.4 mg = 1 cap(s), Oral, qPM, Refills(s) 0 Start Date: 06/14/23 Status: Ordered Start: 01-13-2023 take 1 capsule by mouth at bed time tamsulosin 0.4 mg Cap 0.4 mg = 1 cap(s), Oral, Bedtime, Refills(s) 0 Start Date: 01/13/23 Status: Ordered Therapeutic Multiple Vitamin Tab (11 sources) Start: 12-30-2023 Therapeutic Mu ltiple Vitamin Tab See Instructions, 90 cap(s), Refill(s) 0, Oral Daily Start Date: 12/30/23 Status: Ordered Quantity: 90.0 Unit: cap(s) Repeat number: 1 Start: 12-30-2023 Therapeutic Mu ltiple Vitamin Tab [...] Daily, # 90 tab(s), Refills(s) 0, Pharmacy: [facility], 175.3, cm, 01/13/24 9:06:00 EDT, Height/Length Dosing, 110.9, kg, 01/13/24 9:06:00 EDT, Weight Dosing Start Date: 01/26/24 Status: Ordered Start: 12-30-2023 take 1 tablet by marly th once daily cyanocobalamin 1000 mcg Tab 1,000 mcg = 1 tab(s), Oral, Daily, # 30 tab(s), Refills(s) 0, Pharmacy: [facility]/pharmacy #[id number], 172, cm, 12/29/23 13:54:00 EDT, Height/Length Dosing, 109.8, kg, 12/29/23 13:54:00 EDT, Weight Dosing Start Date: 12/30/23 Status: Ordered Zofran ODT 4 mg Tab-Dis (14 sources) Start: 08-15-2023 take 1 tablet by mouth every eight hours as needed for nausea Zofran ODT 4 mg Tab-Dis 4 mg = 1 tab(s), Oral, q8hr, PRN Nausea/Vomiting, # 12 tab(s), Refills(s) 0, Pharmacy: [facility]/pharmacy #[id number], 172, cm, 08/15/23 7:04:00 EDT, Height/Length Dosing, 107.2, kg, 08/15/23 7:04:00 EDT, Weight Dosing Start Date: 08/15/23 Status: Ordered Start: 07-13-2023 take 1 tablet by marly th every eight hours as needed for nausea Zofran ODT 4 mg Tab-Dis 4 mg = 1 tab(s), Oral, q8hr, PRN Nausea/Vomiting, # 12 tab(s), Refills(s) 0, [id number] 175.4, cm, 06/28/23 7:53:00 EST, Height/Length Dosing, 106.8, kg, 06/28/23 7:53:00 EST, Weight Dosing Start Date: 07/13/23 Status: Ordered Completed/Discontinued Medications Medication Drug Class(es) Dates Sig (Normalized) Sig (Original) acetaminophen 325 mg / oxyCODONE hydrochloride 5 mg oral tablet (8 sources) Opioid Agonist Start: 05-19-2017 End: 09-09-2023 take 1 tablet by mouth every six hours as needed for pain Oxycodone-Acetamino phen 5-325 mg Tablet Discontinued 1 TAB PO Q6H as needed for Pain Scale 1 - 5 40 14 May 19, 2017 1:00am September 09, 2023 11:44am Start: 04-04-2017 End: 09-09-2023 take 1 tablet by mouth every twelve hours as needed for pain Oxycodone-Acetaminophen (Percocet) 5-325 mg Tablet Discontinued 1 TAB PO Q12H as needed for Pain April 04, 2017 12:00am September 09, 2023 11:40am cephalexin 500 mg oral capsule (10 sources) Cephalosporin Antibacterial Start: 09-22-2023 Keflex 500 mg Cap 50 0 mg = 1 cap(s), Oral, As Directed, Pt to take 1 tab the day before procedure and the 2nd tab the day of procedure once completed., # 2 cap(s), Refills(s) 0, [id number] 174.5, cm, 09/22/23 12:37:00 EDT, Height/Length Dosing, 105.9, kg, 09/22/23 12:37:00 EDT, Weight Dosing Start Date: 09/22/23 Status: Ordered Start: 05-26-2023 End: 06-02-2023 take 1 capsule by mouth four times daily Keflex 250 mg Cap 250 mg = 1 cap(s), Oral, QID, X 7 day(s), # 28 cap(s), Refills(s) 0, [id number], 174.5, cm, 05/26/23 9:14:00 EST, Height/Length Dosing, 109.1, kg, 05/26/23 9:14:00 EST, Weight Dosing Start Date: 05/26/23 Stop Date: 06/02/23 Status: Ordered Start: 05-16-2023 End: 05-23-2023 take 1 capsule by mouth four times daily Keflex 250 mg Cap 250 mg = 1 cap(s), Oral, QID, X 7 day(s), # 28 cap(s), Refills(s) 0, Pharmacy: [facility], 174.5, cm, 05/16/23 7:26:00 EST, Height/Length Dosing, 113.4, kg, 05/16/23 7:26:00 EST, Weight Dosing Start Date: 05/16/23 Stop Date: 05/23/23 Status: Ordered Start: 05-19-2017 End: 09-09-2023 take 1 capsule by mouth every eight hours Cephalexin (Keflex) 500 mg capsule Discontinued 500 MG PO Q8H 21 May 19, 2017 1:00am September 09, 2023 11:39am cyclobenzaprine hydrochloride 10 mg oral tablet (4 sources) Muscle Relaxant Start: 04-04-2017 End: 09-09-2023 take 1 tablet by mouth three times daily as needed for muscle spasms Cyclobenzaprine 10 mg Tablet Discontinued 10 MG PO Three times daily as needed for Muscle Spasm April 04, 2017 12:00am September 09, 2023 11:39am docusate sodium 50 mg / sennosides, prison 8.6 mg oral tablet (4 sources) Start: 05-19-2017 End: 09-09-2023 take 2 tablets by mouth twice daily Sennosides-Docusate Sodium (Dok Plus) 8.6-50 mg Tablet Discontinued 2 TAB PO Twice daily May 19, 2017 1:00am September 09, 2023 11:41am esomeprazole 40 mg delayed release oral capsule (4 sources) Proton Pump Inhibitor Start: 04-04-2017 End: 05-18-2017 take 1 capsule by mouth once daily Esomeprazole Magnesium (Nexium) 40 mg Capsule,Delayed Release(Dr/Ec) Discontinued 40 MG PO Daily April 04, 2017 12:00May 18, 2017 1:15pm 72 hr fentaNYL 0.025 mg/hr transdermal system (4 sources) Opioid Agonist Start: 05-19-2017 End: 09-09-2023 Fentanyl 25 mcg/hr Patch 72 Hour Discontinued 25 MCG TRANSDERML Every 72 hours 10 17May 19, 2017 1:00am September 09, 2023 11:39am ferrous sulfate 324 mg delayed release oral tablet (4 sources) Start: 05-19-2017 End: 09-09-2023 take 1 tablet by mouth twice daily Ferrous Sulfate 324 mg (65 mg iron) Tablet,Delayed Release (Dr/Ec) Discontinued 324 MG PO Twice daily May 19, 2017 1:00am September 09, 2023 11:40am gabapentin 100 mg oral capsule (9 sources) Anti-epileptic Agent Start: 03-15-2025 End: 03-18-2025 take 1 capsule by mouth once daily at bedtime Gabapentin 100 mg capsule Discontinued 100 MG PO Daily at bedtime March 15, 2025 12:00am March 18, 2025 8:14am Start: 05-18-2024 take 1 capsule by mo [facility] once daily at bedtime gabapentin 100 mg Cap 100 mg = 1 cap(s), Oral, Once a day (at bedtime), # 30 cap(s), Refills(s) 0, Pharmacy: [facility]/pharmacy #[id number], 175.3, cm, 05/18/24 7:58:00 EST, Height/Length Dosing, 112.1, kg, 05/18/24 7:58:00 EST, Weight Dosing Start Date: 05/18/24 Status: Ordered Start: 04-04-2017 End: 05-13-2017 take 1 capsule by mouth three times daily as needed for pain Gabapentin (Neurontin) 100 mg Capsule Discontinued 100 MG PO Three times daily as needed for Pain April 04, 2017 12:00am May 13, 2017 10:09am glipiZIDE 5 mg oral tablet (20 sources) Sulfonylurea Start: 09-09-2023 End: 03-15-2025 take 1 tablet by mouth once daily Glipizide 5 mg tablet Discontinued 5 MG PO Daily September 09, 2023 12:00am March 15, 2025 8:38am Start: 05-26-2023 take 2 tablets by [facility] twice daily glipiZIDE 5 mg Tab 10 mg = 2 tab(s), Oral, BID, # 360 tab(s), Refills(s) 1, Pharmacy: [facility], 174.5, cm, 05/26/23 9:14:00 EST, Height/Length Dosing, 109.1, kg, 05/26/23 9:14:00 EST, Weight Dosing Start Date: 05/26/23 Status: Ordered Start: 05-16-2023 take 1 tablet by [facility] twice daily glipiZIDE 5 mg Tab 5 mg = 1 tab(s), Oral, BID, # 90 tab(s), Refills(s) 1, Pharmacy: [facility], 174.5, cm, 05/16/23 7:26:00 EST, Height/Length Dosing, 113.4, kg, 05/16/23 7:26:00 EST, Weight Dosing Start Date: 05/16/23 Status: Ordered Start: 02-14-2023 take 1 tablet by marly th once daily glipiZIDE 5 mg Tab 5 mg = 1 tab(s), Oral, Daily, # 90 tab(s), Refills(s) 1, Pharmacy: [facility], 174.5, cm, 02/14/23 7:27:00 EDT, Height/Length Dosing, 115.8, kg, 02/14/23 7:27:00 EDT, Weight Dosing Start Date: 02/14/23 Status: Ordered Start: 01-13-2023 take 1 tablet by marly in the morning glipiZIDE 5 mg Tab See Instructions, Take one orally in the morning if blood sugar is > 170, Refills(s) 0 Start Date: 01/13/23 Status: Ordered magnesium oxide 400 mg oral tablet (20 sources) Start: 11-14-2024 magnesium oxid e 400 mg Tab 400 mg = 1 tab(s), Oral, TID, 90 EA, 0 Refill(s), TAKE 1 TABLET BY MOUTH THREE TIMES A DAY, # 90 tab(s), Refills(s) 0, Pharmacy: [facility]/pharmacy #[id number], 174, cm, 11/14/24 10:26:00 EDT, Height/Length Dosing, 112.9, kg, 11/14/24 10:26:00 EDT, Weight Dosing Start Date: 11/14/24 Status: Ordered Quantity: 90.0 Unit: tab(s) Repeat number: 1 Start: 02-20-2024 magnesium oxid e (Mag-Ox) 400 MG tablet Take 400 mg by mouth 02/20/2024 Active Start: 01-30-2024 take 1 tablet by marly th three times daily magnesium oxide 400 mg Tab 400 mg, Oral, TID, dose change-last magnesium level completed 01/11/24-, # 90 tab(s), Refills(s) 3, Pharmacy: [facility], 175.3, cm, 01/13/24 9:06:00 EDT, Height/Length Dosing, 110.9, kg, 01/13/24 9:06:00 EDT, Weight Dosing Start Date: 01/30/24 Status: Ordered Start: 12-30-2023 take 1 tablet by marly twice daily magnesium oxide 400 mg Tab 400 mg = 1 tab(s), Oral, BID, # 60 tab(s), Refills(s) 0, Pharmacy: [facility]/pharmacy #[id number], 172, cm, 12/29/23 13:54:00 EDT, Height/Length Dosing, 109.8, kg, 12/29/23 13:54:00 EDT, Weight Dosing Start Date: 12/30/23 Status: Ordered Start: 08-18-2023 take 1 tablet by [facility] once daily magnesium oxide 400 mg Tab 400 mg = 1 tab(s), Oral, Daily, # 60 tab(s), Refills(s) 0, Pharmacy: [facility], 172, cm, 12/22/23 7:41:00 EDT, Height/Length Dosing, 107.8, kg, 12/22/23 7:41:00 EDT, Weight Dosing Start Date: 12/22/23 Status: Ordered Start: 06-15-2023 take 1 tablet by [facility] once daily magnesium oxide 400 mg Tab 400 mg = 1 tab(s), Oral, Daily, # 60 tab(s), Refills(s) 0, Pharmacy: [facility]/pharmacy #[id number], 175, cm, 06/14/23 10:52:00 EST, Height/Length Dosing, 102.3, kg, 06/14/23 10:52:00 EST, Weight Dosing Start Date: 06/15/23 Status: Ordered metoprolol 1 mg/mL Inj (1 source) Start: 09-01-2023 End: 09-01-2023 inject 10 mg intravenously once metoprolol 1 mg/mL Inj 10 mg = 10 mL, Injection, IV Push, Once, Stop date 09/01/23 10:51:00 AM EDT, Routine, Start date 09/01/23 11:00:00 AM EDT, 09/01/23 10:36:00 EDT Start Date: 09/01/23 Stop Date: 09/01/23 Status: Completed pantoprazole 40 mg delayed release oral tablet (4 sources) Proton Pump Inhibitor Start: 05-18-2017 End: 09-09-2023 take 1 tablet by mouth once daily Pantoprazole 40 MG tablet,delayed release (DR/EC) Discontinued 40 MG PO Daily May 18, 2017 1:00am September 09, 2023 11:44am Semaglutide (1 source) Start: 03-15-2025 End: 03-18-2025 Semaglutide (Ozempic) 0.25 mg or 0.5 mg (2 mg/3 mL) pen injector Discontinued 0.25 MG SUBCUT every week March 15, 2025 12:00am March 18, 2025 8:15am for 4 weeks Problems Problem Classification Problem Date Documented Date Episodic/Chronic Abdominal hernia (1 source) Gastroesophageal reflux disease with hiatal hernia; Translations: [Diaphragmatic hernia without obstruction or gangrene] 03-18-2025 Episodic Abdominal pain (20 sources) Right flank pain 04-04-2023 Episodic Alcohol-related disorders (20 sources) Alcohol abuse; Translations: [Nondependent alcohol abuse in remission] Onset: 12-29-2023 01-20-2023 Chronic Comment on above: added per 07/13/2024 query response. Calculus of urinary tract (20 sources) Kidney stone; Translations: [Calculus of kidney] Onset: 06-21-2023 Episodic Cardiac dysrhythmias (20 sources) Tachycardia 01-20-2023 Episodic Chronic kidney disease (6 sources) Chronic kidney disease stage 2 07-24-2024 [...] disease without esophagitis] Onset: 12-29-2023 01-20-2023 Chronic Esophageal disorders (1 source) Esophageal disorders Essential hypertension (20 sources) Essential (primary) hypertension; [...] on above: added per 06/10/2023 query response. Nausea and vomiting (1 source) Nausea and vomiting; Translations: [Nausea with vomiting, unspecified] 03-18-2025 Episodic Other aftercare (6 sources) Post-discharge follow-up 06-28-2023 Episodic Other aftercare (1 source) Long-term current use of drug therapy; Translations: [Other care home (current) drug therapy] Onset: 12-29-2023 Episodic Other connective tissue disease (2 sources) Pain in right hand; Translations: [Pain in right hand] 07-18-2024 Episodic Other diseases of bladder and urethra (3 sources) Neurogenic dysfunction of the urinary bladder; Translations: [Neuromuscular dysfunction of bladder, unspecified] Onset: 12-30-2023 Chronic Other diseases of bladder and urethra (13 sources) 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 Other diseases of kidney and ureters (1 source) Urinary tract obstruction; Translations: [Other obstructive and reflux uropathy] Onset: 11-28-2023 Episodic Other diseases of kidney and ureters (1 source) Kidney disease; Translations: [Disorder of kidney and ureter, unspecified] 03-18-2025 Episodic Other lower respiratory disease (20 sources) [...] Chronic Other nutritional; endocrine; and metabolic disorders (16 sources) Morbid obesity 05-16-2023 Chronic Comment on above: added per 05/13/2023 query response. Other nutritional; endocrine; and metabolic disorders (17 sources) Hypomagnesemia; Translations: [Hypomagnesemia] Onset: 12-29-2023 12-27-2023 Chronic Other nutritional; endocrine; and metabolic disorders (16 sources) Body mass index 30+ - obesity 07-09-2024 Chronic Other screening for suspected conditions (not mental disorders or infectious disease) (20 sources) Raised prostate specific antigen; Translations: [Elevated prostate specific antigen [PSA]] Onset: 06-21-2023 Episodic Residual codes; unclassified (20 sources) Edema 05-16-2023 Episodic Screening and history of mental health and substance abuse codes (9 sources) H/O: Disorder; Translations: [Personal history of nicotine dependence] Onset: 05-16-2023 Episodic Spondylosis; intervertebral disc disorders; other back problems (4 sources) Lumbosacral spondylosis; Translations: [Spondylosis without myelopathy or radiculopathy, lumbosacral region] 05-18-2023 Chronic Comment on above: Problem List clean-u p per request of Phys. EHR Cmte Spondylosis; intervertebral disc disorders; other back problems (4 sources) Spinal stenosis of lumbar region; Translations: [Spinal stenosis, lumbar region without neurogenic claudication] 05-18-2023 Episodic Comment on above: Problem List clean-u p per request of Phys. EHR Cmte Unclassified (20 sources) Patient encounter status 04-04-2023 Unclassified (20 sources) Finding of sensation of bladder 09-22-2023 Urinary tract infections (20 sources) Urinary tract infectious disease; Translations: [Urinary tract infection, site not specified] Onset: 06-21-2023 Episodic Results Test Name Value Interpretation Reference Range Facil ity C Urineon 03-06-2025 Bacteria identified Cx Nom (U) Microbiology PROCEDURE: Urine Culture [R1] SOURCE: U CleanCatch BODY SITE: COLLECTED DATE/TIME: 03/04/2025 11:13 EDT RECEIVED DATE/TIME: 03/04/2025 20:14 EDT START DATE/TIME: 03/04/2025 20:14 EDT FREE TEXT SOURCE: SHIRA WHATLEY, MARINO KEARNS CNP, MARINO Butler FINAL REPORTS Final Report [] Verified Date/Time: 03/06/2025 06:55 EDT <10,000 cfu/ml Mixed skin contaminants Performing Locations R1: This test was performed at: [facility], [address] [place] [address], [id number]- , [place], Normal [facility] Comment on above: Performed By: #### [id number] #### [facility] [address] [place] [id number] Magnesiumon 03-04-2025 Magnesium [Mass/Vol] 0.5 mg/dL Abnormal 1.3-2.4 [facility] Comment on above: Result Comment: Crit ical Result Verified by Repeat Analysis Critical Result S_M.[id number] Called to and read back by: DR ANDRE at: 03/04/2025 20:42:04 by:KENA Performed By: #### [id number] #### [facility] [address] [place] [id number] C Urineon 01-31-2025 Bacteria identified Cx Nom (U) Microbiology PROCEDURE: Urine Culture [R1] SOURCE: U CleanCatch BODY SITE: COLLECTED DATE/TIME: 01/29/2025 11:35 EDT RECEIVED DATE/TIME: 01/29/2025 16:55 EDT START DATE/TIME: 01/29/2025 16:56 EDT FREE TEXT SOURCE: MARINO KEARNS CNP, CNP, SHELLY A FINAL REPORTS Final Report [] Verified Date/Time: 01/31/2025 09:30 EDT 1,000 cfu/ml Mixed skin contaminants Performing Locations R1: This test was performed at: [facility], [address] [place] [address], [id number]- , , [facility] Comment on above: Performed By: #### [id number] #### [facility] [address] [place] [address] Ambulatory Visit Summaryon 0 01-29-2025 Ambulatory Visit Summary Ambulatory Visit Summary ALICJA REYES :1955 Visit Date:01/29/2025 Ambulatory Visit Instructions Your Diagnosis Dysuria BMI 36.0-36.9,adult Former smoker Obesity (BMI 30-39.9) Your Care Team Attending Physician - MARINO KEARNS CNP Primary Care Physician - MARINO KEARNS CNP This Is Your Medications List [facility] Prescription ([facility] Prescription) amlodipine (amLODIPine 5 mg Tab) atorvastatin (atorvastatin 40 mg Tab) lisinopril (lisinopril 40 mg Tab) magnesium oxide (magnesium oxide 400 mg Tab) metformin (Glucophage XR 500 mg Tab-ER) metoprolol (metoprolol succinate 25 mg ER Tab) multivitamin (Therapeutic Multiple Vitamin Tab) naproxen (Aleve) omeprazole (omeprazole 20 mg Cap-DR) potassium chloride (potassium chloride 10 mEq Cap-ER) tamsulosin (tamsulosin 0.4 mg Cap) Procedures Performed Carpal tunnel release (08/30/2024), Decompression of median nerve (08/30/2024), Arthroscopy, back surgery, Colonoscopy, hand and elbow surgery LEFT, Hand tendon repaired, Spinal fusion. Discharge Vitals Temperature (Oral) 36.8 ???C Heart Rate (Peripheral) 96 Respiratory Rate 18 Blood Pressure 130/82 Height 174 cm Height 69 in Weight 109.7 kg Weight 241.847 lb BMI 36.23 What to do next Scheduled Follow-Up Appointments Tuesday 8:00 AM EDT With: Where: [facility] [address] [id number]- Tuesday 8:15 AM EDT With: EMMY REYNOLDS, Bryant Vogel Where: [facility] [address] [id number]- Tuesday 8:40 AM EST With: MARINO KEARNS CNP Where: [address] [id number] 8:00 AM EST With: Where: [address] [id number]- Medications What How Much When Instructions Unchanged amlodipine (amLODIPine 5 mg Tab) See instructions TAKE 1 TABLET DAILY Unchanged atorvastatin (atorvastatin 40 mg Tab) See instructions TAKE 1 TABLET DAILY Unchanged lisinopril (lisinopril 40 mg Tab) 1 Tablets By Mouth Every day Unchanged magnesium oxide (magnesium oxide 400 mg Tab) 1 Tablets By Mouth 3 times a day 90 EA, 0 Refill(s), TAKE 1 TABLET BY MOUTH THREE TIMES A DAY Unchanged metformin (Glucophage XR 500 mg Tab-ER) 2 Tablets By Mouth 2 times a day Unchanged metoprolol (metoprolol succinate 25 mg ER Tab) 1 Tablets By Mouth Every day Unchanged [facility] Prescription ([facility] Prescription) 'Number 1' Glucometer and test strips testing BS twice daily- will bring equipment to [facility] f/ u to update brand Unchanged multivitamin (Therapeutic Multiple Vitamin Tab) See instructions Oral Daily Unchanged naproxen (Aleve) 220 Milligram By Mouth Every 12 hours se as needed Unchanged omeprazole (omeprazole 20 mg Cap-DR) See instructions TAKE 1 CAPSULE BY MOUTH EVERY DAY Unchanged potassium chloride (potassium chloride 10 mEq Cap-ER) See instructions TAKE 1 CAPSULE BY MOUTH EVERY DAY Unchanged tamsulosin (tamsulosin 0.4 mg Cap) 1 Capsules By Mouth Once a day (in the evening) Allergies CeleBREX (Anxiety, Unknown) Problems Ongoing - Any problem that you are currently receiving treatment for. Alcohol abuse with other alcohol-induced disorder Alcohol-induced polyneuropathy Blood in urine BMI 36.0-36.9,adult BPH without urinary obstruction CKD (chronic kidney disease), stage II Colon cancer screening Diabetic nephropathy associated with type 2 diabetes mellitus Diastolic dysfunction Dizziness Edema Elevated PSA Fatigue Feeling of incomplete bladder emptying Former smoker Gastroesophageal reflux disease without esophagitis Hypercholesterolemia Hypokalemia Hypomagnesemia Hypotonic neurogenic bladder Incomplete bladder emptying Kidney stone Major depressive disorder, recurrent, moderate Murmur Obesity (BMI 30-39.9) PIN (prostatic intraepithelial neoplasia) Primary hypertension Recurrent UTI Type 2 diabetes mellitus with hypercholesterolemia Historical - Any problem that you are no longer receiving treatment for. Acid reflux Diabetes mellitus Patient Survey You may receive a survey via text or e-mail asking about your office visit. Please share your experience with us by completing your survey. We appreciate your feedback and thank you for choosing us for your care. Patient Portal You may access all of your results and other medical record information on our secure patient portal. If you are not signed up for this yet, please contact [employer] at [phone] to get signed up today. Language Information Language assistance services are available as needed. Osman Hobbs [facility] Family Medicine Office/Clini c Noteon 01-29-2025 Family Medicine Office/Clinic Note Family Medicine Office/Clinic Note Chief Complaint Possible UTI The patient presents with dysuria and associated nausea. HPI Staff Pt presents today due to possible UTI. Pt does have Hx of UTI & NGB. Does CIC 3x/day. Does see [facility]. Onset: Sx started Tuesday Symptoms: burning with urination & nausea, no appetitive & dizzy Last UTI: 1-2months ago Hx of kidney stones: no Pt unable to provide urine specimen in office today. I have reviewed and verified the staff HPI to be accurate for this encounter. History of Present Illness 69-year-old male presenting with dysuria and associated nausea. The dysuria has been recurrent, with previous episodes requiring emergency room visits where urinary retention was addressed with catheterization. The patient reports nausea and dry heaves starting on Tuesday, which he associates with previous urinary tract infections. The patient has a history of low magnesium levels, with recent transfusions occurring approximately one month ago. He denies any recent exposure to infectious agents, despite experiencing flu-like symptoms. The patient has a history of obesity with a BMI in the range of 30-39.9 and is a former smoker. He has an upcoming appointment with a scrap preparer, expressing dissatisfaction with previous consultations. Review of Systems PHQ Score Initial Depression Screen Score: 0 SCORE - General: Reports nausea and dry heaves since Tuesday. Denies fever. - Genitourinary: Reports dysuria and previous urinary retention requiring catheterization. - Respiratory: Denies recent exposure to infectious agents despite flu-like symptoms. Physical Exam Vitals & Measurements T: 36.8 ???C(Oral) HR: 96(Peripheral) RR: 18 BP: 130/82 SpO2: 97% HT: 174 cm HT: 69 in WT: 109.7 kg WT: 241.847 lb BMI: 36.23 General: alert, no acute distress Skin: warm, dry Head: no trauma, normocephalic Neck: Trachea midline, no adenopathy, no tenderness Cardiovascular: regular rate and rhythm, normal peripheral perfusion Respiratory: Lungs CTA, respirations non labored Back: No tenderness, Normal ROM, Normal alignment. Extremities: no deformity, no trauma Neurological: oriented x 4, LOC appropriate for age, speech normal Assessment/Plan 1. Dysuria (R30.0: Dysuria) - Plan to provide a urine sample for analysis to check for nitrates and leukocytes. - If positive, an antibiotic will be prescribed, and the sample will be sent for culture. 2. BMI 36.0-36.9,adult (Z68.36: Body mass index [BMI] 36.0-36.9, adult) BMI 36.23 3. Former smoker (Z87.891: Personal history of nicotine dependence) Encouraged to continue as a non- smoker 4. Obesity (BMI 30-39.9) (E66.9: Obesity, unspecified) The standard range for ages 18 and older is >=18.5 and < 25 kg/m2. Your BMI today was above this range, this falls in the overweight to obese category and there are medical benefits to weight loss. We can offer counselling, referral, and/or medical support in addressing this problem. Your BMI and weight management will be followed at subsequent visits. Follow-up No qualifying data available Problem List/Past Medical History Ongoing Alcohol abuse with other alcohol-induced disorder Alcohol-induced polyneuropathy Blood in urine BMI 36.0-36.9,adult BPH without urinary obstruction CKD (chronic kidney disease), stage II Colon cancer screening Diabetic nephropathy associated with type 2 diabetes mellitus Diastolic dysfunction Dizziness Edema Elevated PSA Fatigue Feeling of incomplete bladder emptying Former smoker Gastroesophageal reflux disease without esophagitis Hypercholesterolemia Hypokalemia Hypomagnesemia Hypotonic neurogenic bladder Incomplete bladder emptying Kidney stone Major depressive disorder, recurrent, moderate Murmur Obesity (BMI 30-39.9) PIN (prostatic intraepithelial neoplasia) Primary hypertension Recurrent UTI Type 2 diabetes mellitus with hypercholesterolemia Historical Acid reflux Diabetes mellitus Procedure/Surgical History Carpal tunnel release (08/30/2024), Decompression of median nerve (08/30/2024), Arthroscopy, back surgery, Colonoscopy, hand and elbow surgery LEFT, Hand tendon repaired, Spinal fusion. Medications Aleve, 220 mg, Oral, q12hr amLODIPine 5 mg Tab, See Instructions atorvastatin 40 mg Tab, See Instructions Glucophage XR 500 mg Tab-ER, 1000 mg= 2 tab(s), Oral, BID, 3 refills lisinopril 40 mg Tab, 40 mg= 1 tab(s), Oral, Daily, 4 refills magnesium oxide 400 mg Tab, 400 mg= 1 tab(s), Oral, TID metoprolol succinate 25 mg ER Tab, 25 mg= 1 tab(s), Oral, Daily, 4 refills Misc DME Prescription omeprazole 20 mg Cap-DR, See Instructions, 4 refills potassium chloride 10 mEq Cap-ER, See Instructions, 3 refills tamsulosin 0.4 mg Cap, 0.4 mg= 1 cap(s), Oral, qPM, 4 refills Therapeutic Multiple Vitamin Tab, See Instructions Allergies CeleBREX (Anxiety, Unknown) Social History Alcohol - Medium Risk, 11/15/2012 Saima (more content not included)... Normal [facility] Comment on above: Result Comment: Elec tronically Signed By: MARINO KEARNS CNP\.br\Date and Time Signed: 01/29/25 08:08 EDT Ambulatory Visit Summaryon 0 01-08-2025 Ambulatory Visit Summary Ambulatory Visit Summary ALICJA REYES :1955 Visit Date:01/08/2025 Ambulatory Visit Instructions Your Diagnosis Type 2 diabetes mellitus with peripheral neuropathy Low magnesium level BMI 37.0-37.9, adult Morbid (severe) obesity due to excess calories Your Care Team Attending Physician - MARINO KEARNS CNP Primary Care Physician - MARINO KEARNS CNP This Is Your Medications List Contact prescribing physician if questions or concerns Misc Prescription (Misc DME Prescription) amlodipine (amLODIPine 5 mg Tab) atorvastatin (atorvastatin 40 mg Tab) lisinopril (lisinopril 40 mg Tab) magnesium oxide (magnesium oxide 400 mg Tab) metformin (Glucophage XR 500 mg Tab-ER) metoprolol (metoprolol succinate 25 mg ER Tab) multivitamin (Therapeutic Multiple Vitamin Tab) naproxen (Aleve) omeprazole (omeprazole 20 mg Cap-DR) potassium chloride (potassium chloride 10 mEq Cap-ER) semaglutide (Ozempic 2 mg/3 mL (0.25 mg or 0.5 mg dose) subcutaneous solution) tamsulosin (tamsulosin 0.4 mg Cap) [Image Removed: STOP]Stop taking these medications acetaminophen-hydroco done (acetaminophen-hydroc odone 325 mg-5 mg oral tablet) Procedures Performed Carpal tunnel release (08/30/2024), Decompression of median nerve (08/30/2024), Arthroscopy, back surgery, Colonoscopy, hand and elbow surgery LEFT, Hand tendon repaired, Spinal fusion. Discharge Vitals Temperature (Temporal Artery) 36.0 ???C Heart Rate (Peripheral) 82 Respiratory Rate 20 Blood Pressure 124/78 Height 174.0 cm Height 69 in Weight 112.6 kg Weight 248.24 lb BMI 37.19 What to do next Scheduled Follow-Up Appointments Tuesday 8:00 AM EDT With: Where: [facility] [address] [place] [address]- Tuesday 8:15 AM EDT With: Bryant TAO MD Where: [facility] [address] [place] [address]- Tuesday 8:40 AM EST With: MARINO KEARNS CNP Where: [address] [address]- Tuesday2025 8:00 AM EST With: Where: [address] [address]- You Need to Schedule the Following Appointments Follow Up with MARINO KEARNS CNP, FAM When: Within 3 months Comments: Diabetes Where: [address] [place] [phone] Business (1) Medications What How Much When [...] 400 mg Tab) 1 Tablets By Mouth 3 times a day 90 EA, 0 Refill(s), TAKE 1 TABLET BY MOUTH THREE TIMES A DAY Contact prescribing physician if questions or concerns Unchanged metformin (Glucophage XR 500 mg Tab-ER) 2 Tablets By Mouth 2 times a day Contact prescribing physician if questions or concerns Unchanged metoprolol (metoprolol succinate 25 mg ER Tab) 1 Tablets By Mouth Every day Contact prescribing physician if questions or concerns Unchanged Misc Prescription (Misc DME Prescription) 'Number 1' Glucometer and test strips testing BS twice daily- will bring equipment to [facility] f/ u to update brand Contact prescribing [...] prescribing physician if questions or concerns Unchanged tamsulosin (tamsulosin 0.4 mg Cap) 1 Capsules By Mouth Once a day (in the evening) Contact prescribing physician if questions or concerns What When Comments Stop Taking acetaminophen-hydroco done (acetaminophen-hydroc odone 325 mg-5 mg (more content not included)... Normal [facility] Family Medicine Office/Clini c Noteon 01-08-2025 Family Medicine Office/Clinic Note Family Medicine Office/Clinic Note Chief Complaint The patient presents for management of type 2 diabetes mellitus and monitoring of magnesium levels. HPI Staff Pt presents today for 3m follow up Patient is here for follow up on Diabetes. How often are you checking your blood sugars? occasionally What are your average readings? _ Paresthesias, Ulcerations or sores? no Lisinopril, aspirin, statin therapy? Yes Foot Exam: Eye Exam: due Last A1c: Hgb A1C %: 8.7 % High (10/08/24 08:18:00) Pt does have Hx of Hypomagnesemia. He said he needs his magnesium checked no refills needed History of Present Illness 69-year-old male presenting with management of type 2 diabetes mellitus with peripheral neuropathy and monitoring of magnesium levels. The patient has a history of type 2 diabetes mellitus, with recent blood glucose readings occasionally reaching 180 mg/dL, indicating suboptimal control. Peripheral neuropathy is present, with diminished sensation noted in the feet, particularly on the left side. The patient is also being monitored for low magnesium levels, with a follow-up test due during this visit. The patient reports swelling in the ankles, which is suspected to be related to a previous injury and possibly exacerbated by obesity. The swelling is not described as severe, but it is persistent. Review of Systems PHQ Score Initial Depression Screen Score: 0 SCORE - Neurological: Reports diminished sensation in the feet, particularly on the left side. - Musculoskeletal: Reports swelling in the ankles, suspected to be related to a previous injury. - Genitourinary: Reports history of urinary tract infections and inadequate water intake. Physical Exam Vitals & Measurements T: 36.0 ???C(Temporal Artery) HR: 82(Peripheral) RR: 20 BP: 124/78 SpO2: 98% HT: 174.0 cm HT: 69 in WT: 112.6 kg WT: 248.24 lb BMI: 37.19 General: alert, no acute distress Cardiovascular: regular rate and rhythm, normal peripheral perfusion Respiratory: Lungs CTA, respirations non labored Extremities: no deformity, no trauma Foot: Abnormal sensation, no lesions, pedal pulses palpable Neurological: Sensory examination of the feet revealed diminished sensation, particularly on the left foot towards the toe and middle of the foot. Diabetic Foot Exam Decreased Monofilament Sensation Foot: Left - Abnormal, Right - Abnormal Bunions/Foot Deformity: Left - Normal, Right - Normal Abnormal Pulse Foot: Left - Normal, Right - Normal Skin Lesions Foot: Left - Normal, Right - Normal Vibratory Sensation Foot: Left - Normal, Right - Normal Foot Exam Result: Abnormal foot exam Assessment/Plan 1. Type 2 diabetes mellitus with peripheral neuropathy (E11.42: Type 2 diabetes mellitus with diabetic polyneuropathy) - Plan to monitor blood glucose levels and adjust treatment as necessary to achieve better control. - Continue MetFormin 100mg BID, & Ozempic 0.25 mg one time weekly - Encourage low carb diet and daily exercise - Awaiting A1c test to assess long-term glucose control. Ordered: HgbA1c Lab Specimen Collect [id number] 2. Low magnesium level (R79.0: Abnormal level of blood mineral) - Awaiting magnesium levels Ordered: Lab Specimen Collect [id number] Magnesium Level 3. BMI 37.0-37.9, adult (Z68.37: Body mass index [BMI] 37.0-37.9, adult) BMI 37.19 Morbid (severe) obesity due to excess calories (E66.01: Morbid (severe) obesity due to excess calories) - Discussed the impact of alcohol consumption on weight and overall health. Follow-up With When Contact Information MARINO KEARNS CNP, FAM Within 3 months [address] [place] [address] [facility] (1) Additional Instructions: Diabetes Patient Education Type 2 Diabetes Mellitus, Diagnosis, Adult Problem List/Past Medical History Ongoing Alcohol abuse with other alcohol-induced disorder Alcohol-induced polyneuropathy Blood in urine BMI 37.0-37.9, adult BPH without urinary obstruction CKD (chronic kidney disease), stage II Colon cancer screening Diabetic nephropathy associated with type 2 diabetes mellitus Diastolic dysfunction Dizziness Edema Elevated PSA Fatigue Feeling of incomplete bladder emptying Former smoker Gastroesophageal reflux disease without esophagitis Hypercholesterolemia Hypokalemia Hypomagnesemia Hypotonic neurogenic bladder Incomplete bladder emptying Kidney stone Major depressive disorder, recurrent, moderate Murmur PIN (prostatic intraepithelial neoplasia) Primary hypertension Recurrent UTI Type 2 diabetes mellitus with hypercholesterolemia Type 2 diabetes mellitus with peripheral neuropathy Historical Acid reflux Diabetes mellitus Procedure/Surgical History Carpal tunnel release (08/30/2024), Decompression of median nerve (08/30/2024), Arthroscopy, back surgery, Colonoscopy, hand and elbow surgery LEFT, Hand tendon repaired, Spinal fusion. Medications Aleve, 220 m (more content not included)... Normal [facility] Comment on above: Result Comment: Elec tronically Signed By: MARINO KEARNS CNP\.br\Date and Time Signed: 01/08/25 08:28 EDT [id number] 01-08-2025 HbA1c (Bld) [Mass fraction] 7.7 % High <=5.9 [facility] Comment on above: Performed By: #### [id number] #### [facility] [address] [place] [address] C Urineon 11-16-2024 Bacteria identified Cx Nom (U) Microbiology PROCEDURE: Urine Culture [R1] SOURCE: U CleanCatch BODY SITE: COLLECTED DATE/TIME: 11/14/2024 12:00 EDT RECEIVED DATE/TIME: 11/14/2024 17:21 EDT START DATE/TIME: 11/14/2024 17:21 EDT FREE TEXT SOURCE: MARINO KEARNS CNP, CNP, SHELLY A FINAL REPORTS Final Report [] Verified Date/Time: 11/16/2024 09:29 EDT 75,000 cfu/ml Enterococcus faecalis SUSCEPTIBILITY RESULTS [...] S Nitrofurantoin <=32 S Penicillin 2 S Tetracycline >8 R Vancomycin 1 S Performing Locations R1: This test was performed at: [facility], [address] [place] [address], [address] , , [facility] Comment on above: Performed By: #### [id number] #### [facility] [address] [place] [id number] Ambulatory Visit Summaryon 0 11-14-2024 Ambulatory Visit Summary Ambulatory Visit Summary ALICJA REYES :1955 Visit Date:11/14/2024 Ambulatory Visit Instructions Your Diagnosis Dizziness Microhematuria Tests Performed Urine Culture -- Results Pending -- Please visit your patient portal for your results or contact your primary care physician. Your Care Team Attending Physician - MARINO EKARNS CNP Primary Care Physician - Nancy Grace MD This Is Your Medications List Misc Prescription (Misc DME Prescription) acetaminophen-hydroco done (acetaminophen-hydroc odone 325 mg-5 mg oral tablet) amlodipine (amLODIPine 5 mg Tab) atorvastatin (atorvastatin 40 mg Tab) ciprofloxacin (Cipro 500 mg Tab) lisinopril (lisinopril 40 mg Tab) magnesium oxide (magnesium oxide 400 mg Tab) metformin (Glucophage XR 500 mg Tab-ER) metoprolol (metoprolol succinate 25 mg ER Tab) multivitamin (Therapeutic Multiple Vitamin Tab) naproxen (Aleve) omeprazole (omeprazole 20 mg Cap-DR) potassium chloride (potassium chloride 10 mEq Cap-ER) semaglutide (Ozempic 2 mg/3 mL (0.25 mg or 0.5 mg dose) subcutaneous solution) tamsulosin (tamsulosin 0.4 mg Cap) Procedures Performed Carpal tunnel release (08/30/2024), Decompression of median nerve (08/30/2024), Arthroscopy, back surgery, Colonoscopy, hand and elbow surgery LEFT, Hand tendon repaired, Spinal fusion. Discharge Vitals Temperature (Oral) 37.1 ???C Heart Rate (Peripheral) 96 Respiratory Rate 16 Blood Pressure 150/80 Blood Pressure 150/80(Sitting) Blood Pressure 130/88(Standing) Height 69 in Height 174.0 cm Weight 248.902 lb Weight 112.9 kg BMI 37.29 What to do next Scheduled Follow-Up Appointments Tuesday 8:20 AM EDT With: Nancy Grace MD Where: [facility] [address] [address]- Tuesday 8:00 AM EDT With: Where: [facility] [address] [place] [address]- Tuesday 8:15 AM EDT With: EMMY REYNOLDS, Bryant Vogel Where: [facility] [address] [place] [address]- Tuesday2025 8:00 AM EST With: Where: [facility] [address] [address]- Medications What How Much When Why Instructions New ciprofloxacin (Cipro 500 mg Tab) 1 Tablets By Mouth Every 12 hours Dizziness Microhematuria Duration: 7 Days Pickup at [facility]/pharmacy #[id number] Unchanged acetaminophen-hydroco done (acetaminophen-hydroc odone 325 mg-5 mg oral tablet) 12 tab(s), 0 Refill(s) Unchanged amlodipine (amLODIPine 5 mg Tab) See instructions TAKE 1 TABLET DAILY Unchanged atorvastatin (atorvastatin 40 mg Tab) See instructions TAKE 1 TABLET DAILY Unchanged lisinopril (lisinopril 40 mg Tab) 1 Tablets By Mouth Every day Unchanged magnesium oxide (magnesium oxide 400 mg Tab) 90 EA, 0 Refill(s), TAKE 1 TABLET BY MOUTH THREE TIMES A DAY Unchanged metformin (Glucophage XR 500 mg Tab-ER) 2 Tablets By Mouth 2 times a day Unchanged metoprolol (metoprolol succinate 25 mg ER Tab) 1 Tablets By Mouth Every day Unchanged Misc Prescription ([facility] DME Prescription) 'Number 1' Glucometer and test strips testing BS twice daily- will bring equipment to [facility] f/ u to update brand Unchanged multivitamin (Therapeutic Multiple Vitamin Tab) See instructions Oral Daily Unchanged naproxen (Aleve) 220 Milligram By Mouth Every 12 hours se as needed Unchanged omeprazole (omeprazole 20 mg Cap-DR) See instructions TAKE 1 CAPSULE BY MOUTH EVERY DAY Unchanged potassium chloride (potassium chloride 10 mEq Cap-ER) See instructions TAKE 1 CAPSULE BY MOUTH EVERY DAY Unchanged semaglutide (Ozempic 2 mg/ 3 mL (0.25 mg or 0.5 mg dose) subcutaneous solution) 0.25 Milligram Subcutaneous Every week Type 2 diabetes mellitus with hypercholesterolemia BMI 37.0-37.9, adult Obesity (BMI 30-39.9) Former smoker Hypomagnesemia Unchanged tamsulosin (tamsulosin 0.4 mg Cap) 1 Capsules By Mouth Once a day (in the evening) Pharmacy Information [facility]/pharmacy #[id number]: [address], [place] [id number] [phone] Allergies CeleBREX (Anxiety, Unknown) Problems Ongoing - Any problem that you are currently receiving treatment for. Alcohol abuse with other alcohol-induced disorder Alcohol-induced polyneuropathy Blood in urine BMI 37.0-37.9, adult BPH without urinary obstruction CKD (chronic kidney disease), stage II Colon cancer screening Diabetic nephropathy associated with type 2 diabetes mellitus Diastolic dysfunction Dizziness Edema Elevated PSA Fatigue Feeling of incomplete bladder emptying Former smoker Gastroesophageal reflux disease without esophagitis Hypercholesterolemia Hypokalemia Hypomagnesemia Hypotonic neurogenic bladder Incomplete bladder emptying Ki (more content not included)... Normal [facility] Medicine Office/Clini c Noteon 11-14-2024 Family Medicine Office/Clinic Note Family Medicine Office/Clinic Note Chief Complaint Refills for mag ox, dizziness started about 3 days ago. Woke him up out of his sleep last night, he felt like he was spinning. The patient presents with dizziness that started a few days ago. HPI Staff C/O of Dizziness: Onset: 3 days ago Sensation: Head spinning Nausea: Yes Vomiting: Denies Headaches: Denies Ear Congestion: Yes ears draining States last time this happened he had a uti History of Present Illness 69 [address] old patient of Dr. Grace presents today for evaluation of dizziness and possible urinary tract infection. The dizziness began a few days ago, waking him from sleep, and was described as feeling like going around in circles. He reports no specific inciting events and denies any ear problems. He has experienced similar symptoms in the past, approximately a year ago, which were treated with ciprofloxacin for a urinary tract infection. The patient also reports a history of magnesium deficiency, requiring periodic infusions, and is currently managing this with Magox supplementation. Review of Systems PHQ Score Initial Depression Screen Score: 0 SCORE - Neurological: Reports dizziness waking him from sleep, denies ear problems. - Gastrointestinal: Reports feeling queasy, denies vomiting. - Endocrine: Reports hyperglycemia with blood sugar at 309 mg/dL. Physical Exam Vitals & Measurements T: 37.1 ???C(Oral) HR: 96(Peripheral) RR: 16 BP: 150/80 BP: 150/80(Sitting) BP: 130/88(Standing) SpO2: 97% HT: 174.0 cm HT: 69 in WT: 248.902 lb WT: 112.9 kg BMI: 37.29 General: alert, no acute distress Skin: warm, dry Head: no trauma, normocephalic Neck: Trachea midline, no adenopathy, no tenderness Eye: normal conjunctiva, sclera clear ENMT: TM's clear, oral mucosa moist, no pharyngeal erythema or exudate Cardiovascular: regular rate and rhythm, normal peripheral perfusion Respiratory: Lungs CTA, respirations non labored Musculoskeletal: Able to walk without running into objects, balance maintained during heel-to-toe walk. Neurological: Eyes moving in conjunction, balance maintained during testing. Assessment/Plan 1. Dizziness (R42: Dizziness and giddiness) - Considered possible causes including vertigo and urinary tract infection. - POC U/A shows leukocytes and blood - Urine culture pending - Start Ciprofloxacin - Provider to call with urine culture results Ordered: ciprofloxacin, 500 mg = 1 tab(s), Oral, q12hr, X 7 day(s), # 14 tab(s), Refills(s) 0, [id number], 174, cm, 11/14/24 10:26:00 EDT, Height/Length Dosing, 112.9, kg, 11/14/24 10:26:00 EDT, Weight Dosing Urnls Dip Stick Auto w/o Microscopy POC [address] Microhematuria (R31.29: Other microscopic hematuria) - POC U/A shows leukocytes and blood - Urine culture pending - Start Ciprofloxacin - Provider to call with urine culture results Ordered: ciprofloxacin, 500 mg = 1 tab(s), Oral, q12hr, X 7 day(s), # 14 tab(s), Refills(s) 0, [id number], 174, cm, 11/14/24 10:26:00 EDT, Height/Length Dosing, 112.9, kg, 11/14/24 10:26:00 EDT, Weight Dosing Urine Culture Orders: magnesium oxide, 400 mg = 1 tab(s), Oral, TID, 90 EA, 0 Refill(s), TAKE 1 TABLET BY MOUTH THREE TIMES A DAY, # 90 tab(s), Refills(s) 0, Pharmacy: [facility]/pharmacy #[id number], 174, cm, 11/14/24 10:26:00 EDT, Height/Length Dosing, 112.9, kg, 11/14/24 10:26:00 EDT, Weight Dosing Follow-up No qualifying data available Patient Education Hematuria, Adult Problem List/Past Medical History Ongoing Alcohol abuse with other alcohol-induced disorder Alcohol-induced polyneuropathy Blood in urine BMI 37.0-37.9, adult BPH without urinary obstruction CKD (chronic kidney disease), stage II Colon cancer screening Diabetic nephropathy associated with type 2 diabetes mellitus Diastolic dysfunction Dizziness Edema Elevated PSA Fatigue Feeling of incomplete bladder emptying Former smoker Gastroesophageal reflux disease without esophagitis Hypercholesterolemia Hypokalemia Hypomagnesemia Hypotonic neurogenic bladder Incomplete bladder emptying Kidney stone Major depressive disorder, recurrent, moderate Morbid obesity Murmur Obesity (BMI 30-39.9) PIN (prostatic intraepithelial neoplasia) Primary hypertension Recurrent UTI Type 2 diabetes mellitus with hypercholesterolemia Type 2 diabetes mellitus with peripheral neuropathy Historical Acid reflux Diabetes mellitus Procedure/Surgical History Carpal tunnel release (08/30/2024), Decompression of median nerve (08/30/2024), Arthroscopy, back surgery, Colonoscopy, hand and elbow surgery LEFT, Hand tendon repaired, Spinal fusion. Medications acetaminophen-hydroco done 325 mg-5 mg oral tablet, Not taking Aleve, 220 mg, Oral, q12hr amLODIPine 5 mg Tab, See Instructions atorvastatin 40 mg Tab, See Instructions Cipro 500 mg Tab, 500 mg= 1 tab(s), Oral, q12hr Glucophage XR 500 mg Tab-ER, 1000 mg= 2 tab(s (more content not included)... Normal [facility] Comment on above: Result Comment: Elec tronically Signed By: MARINO KEARNS CNP\.oliver\Date and Time Signed: 11/14/24 11:08 EDT Ambulatory Visit Summaryon 0 10-08-2024 Ambulatory Visit Summary Ambulatory Visit Summary ALICJA REYES :1955 Visit Date:10/08/2024 Ambulatory Visit Instructions Your Diagnosis Type 2 diabetes mellitus with peripheral neuropathy Alcohol abuse with other alcohol-induced disorder Alcohol-induced polyneuropathy Major depressive disorder, recurrent, moderate Gastroesophageal reflux disease without esophagitis Feeling of incomplete bladder emptying Diastolic dysfunction Edema Hypomagnesemia Hypokalemia BMI 37.0-37.9, adult Former smoker Obesity (BMI 30-39.9) Your Care Team Attending Physician - Nancy Grace MD Primary Care Physician - Nancy Grace MD This Is Your Medications List Misc Prescription (Misc DME Prescription) amlodipine (amLODIPine 5 mg Tab) atorvastatin (atorvastatin 40 mg Tab) lisinopril (lisinopril 40 mg Tab) magnesium oxide (magnesium oxide 400 mg Tab) metformin (Glucophage XR 500 mg Tab-ER) metoprolol (metoprolol succinate 25 mg ER Tab) multivitamin (Therapeutic Multiple Vitamin Tab) naproxen (Aleve) omeprazole (omeprazole 20 mg Cap-DR) potassium chloride (potassium chloride 10 mEq Cap-ER) semaglutide (Ozempic 2 mg/3 mL (0.25 mg or 0.5 mg dose) subcutaneous solution) tamsulosin (tamsulosin 0.4 mg Cap) Procedures Performed Carpal tunnel release (08/30/2024), Arthroscopy, back surgery, Colonoscopy, hand and elbow surgery LEFT, Hand tendon repaired, Spinal fusion. Discharge Vitals Temperature (Tympanic) 36.8 ???C Heart Rate (Peripheral) 86 Respiratory Rate 18 Blood Pressure 142/88 Height 174 cm Height 69 in Weight 113 kg Weight 249.122 lb BMI 37.32 What to do next Scheduled Follow-Up Appointments Tuesday 8:20 AM EDT With: Ruiz REYNOLDS, Nancy Thompson Where: [address] [id number]- Tuesday 8:00 AM EDT With: Where: [facility] [address] [place] [address] [place] [address]- Tuesday 8:15 AM EDT With: EMMY REYNOLDS, Bryant Vogel Where: [facility] [address] [place] [address]. [place] [address]- Tuesday2025 8:00 AM EST With: Where: [address] [address]- You Need to Complete the Following Magnesium Level, Blood, Routine collect, 10/08/24, Order for future visit, Lab Collect, Type 2 diabetes mellitus with peripheral neuropathy Alcohol abuse with other alcohol-induced disorder Alcohol-induced polyneuropathy Major depressive disorder, recurrent, mod... Medications What How Much When Why Instructions Unchanged amlodipine (amLODIPine 5 mg Tab) See instructions TAKE 1 TABLET DAILY Unchanged atorvastatin (atorvastatin 40 mg Tab) See instructions TAKE 1 TABLET DAILY Unchanged lisinopril (lisinopril 40 mg Tab) 1 Tablets By Mouth Every day Unchanged magnesium oxide (magnesium oxide 400 mg Tab) 400 Milligram By Mouth 3 times a day Duration: 30 Days Unchanged metformin (Glucophage XR 500 mg Tab-ER) 2 Tablets By Mouth 2 times a day Unchanged metoprolol (metoprolol succinate 25 mg ER Tab) 1 Tablets By [...] needed Unchanged omeprazole (omeprazole 20 mg Cap-DR) See instructions TAKE 1 CAPSULE BY MOUTH EVERY DAY Unchanged potassium chloride (potassium chloride 10 mEq Cap-ER) See instructions TAKE 1 CAPSULE BY MOUTH EVERY DAY Unchanged semaglutide (Ozempic 2 mg/ 3 mL (0.25 mg or 0.5 mg dose) subcutaneous solution) 0.25 Milligram Subcutaneous Every week Type 2 diabetes mellitus with hypercholesterolemia BMI 37.0-37.9, adult Obesity (BMI 30-39.9) Former smoker Hypomagnesemia Unchanged tamsulosin (tamsulosin 0.4 mg Cap) 1 Capsules By Mouth Once a day (in the evening) Allergies CeleBREX (Anxiety, Unknown) Problems Ongoing - Any problem that you are currently receiving treatment for. Alcohol abuse with other alcohol-induced disorder Alcohol-induced polyneuropathy Blood in urine BMI 37.0-37.9, adult BPH without urinary obstruction CKD (chronic kidney disease), stage II Colon cancer screening Diabetic nephropathy associated with type 2 diabetes mellitus Diastolic dysfunction Dizziness Edema Elevated PSA Fatigue Feeling of incomplete bladder emptying Former smoker Gastroesophageal reflux disease without esophagitis Hypercholesterolemia Hypokalemia Hypomagnesemia Hypotonic neurogenic bladder Incomplete bladder emptying Kidney stone Major depressive disorder, recurrent, m (more content not included)... Normal [facility] BMPon 10-08-2024 CO2 [Moles/Vol] 24 mmol/L Normal - [facility] Comment on above: Performed By: #### 2 [id number] #### [facility] [address] [place] [address] Anion gap [Moles/Vol] 14 mmol/L Normal 6-16 [facility] Comment on above: Performed By: #### 2 [id number] #### [facility] [address] [place] [address] Calcium [Mass/Vol] 8.5 mg/dL Low 8.9-11.1 [facility] Comment on above: Performed By: #### 2 [id number] #### [facility] [address] [place] [address] Chloride [Moles/Vol] 103 mmol/L Normal 101-111 [facility] Comment on above: Performed By: #### 2 [id number] #### [facility] [address] [place] [address] Creatinine [Mass/Vol] 1.4 mg/dL High 0.5-1.3 [facility] Comment on above: Performed By: #### 2 [id number] #### [facility] [address] [place] [address] Glucose [Mass/Vol] 248 mg/dL High 55-199 [facility] Comment on above: Performed By: #### 2 [id number] #### [facility] [address] [place] [address] Potassium [Moles/Vol] 4.5 mmol/L Normal 3.5-5.3 [facility] Comment on above: Performed By: #### 2 [id number] #### [facility] [address] [place] [address] Sodium [Moles/Vol] 136 mmol/L Normal 135-145 [facility] Comment on above: Performed By: #### 2 [id number] #### [facility] [address] [place] [address] Urea nitrogen [Mass/Vol] 16 mg/dL Normal 5-21 [facility] Comment on above: Performed By: #### 2 [id number] #### [facility] [address] [place] [address] Urea nitrogen/Creatinine [Mass ratio] 11 No Units Normal 10-20 [facility] Comment on above: Performed By: #### 2 [id number] #### [facility] [address] [place] [address] CHEMISTRYOrdered By: SYSTEM SYSTEM on 10-08-2024 Magnesium [Mass/Vol] 0.9 mg/dL Invalid Interpretation Code 1.3 - 2.4 mg/dL [facility] Comment on above: Result Comment: Crit ical Result Verified by Repeat Analysis Critical Result S_M.9 Called to and read back by: DR. ANDRE at: 10/08/2024 19:50:28 by:ZARA Anion gap [Moles/Vol] 14 mmol/L Normal 6 - 16 mEq/L R [facility] Calcium [Mass/Vol] 8.5 mg/dL Low 8.9 - 11.1 mg/dL [facility] Chloride [Moles/Vol] 103 mmol/L Normal 101 - 111 mmol/ L [facility] Creatinine [Mass/Vol] 1.4 mg/dL High 0.5 - 1.3 mg/d L [facility] eGFR 54 mL/min/1.73 m2 Low >=59mL/min /1.73 m2 [facility] Glucose [Mass/Vol] 248 mg/dL High 55 - 199 mg/dL Re misol Chem Potassium [Moles/Vol] 4.5 mmol/L Normal 3.5 - 5.3 mmol /L [facility] Sodium [Moles/Vol] 136 mmol/L Normal 135 - 145 mmol/L [facility] Urea nitrogen [Mass/Vol] 16 mg/dL Normal 5 - 21 mg/dL [facility] Urea nitrogen/Creatinine [Mass ratio] 11 mg/mg Normal 10 - 20 [facility] CHEMISTRYOrdered By: Ruthann Mohan on 10-08-2024 CO2 [Moles/Vol] 24 mmol/L Normal 21 - 31 mmol/L [facility] Chem S CHEMISTRYOrdered By: Irma Irwin on 10-08-2024 HbA1c (Bld) [Mass fraction] 8.7 % High <=5.9% [facility] ChemAutoSS Family Medicine Office/Clini c Noteon 10-08-2024 Family Medicine Office/Clinic Note Family Medicine Office/Clinic Note Chief Complaint 3m follow up Concern about recurrent hypomagnesemia episodes and recent magnesium levels HPI Staff 3m follow up Started on semaglutide @ [facility] for diabetes. Pt states he did not get. Too expensive. Magnesium levels drawn @ [facility]. Results were critical low. Pt advised to go to ER. Repeat Mag draw on 08/22/24 again critical low. Returned to ER for IV Mag. Pt is to get Magnesium repeated prior to today's appt. History of Present Illness - The patient is a 69-year-old male presenting with concerns about magnesium deficiency management. - Frequent ER visits for hypomagnesemia with potential for outpatient management. - History of alcohol abuse with current intake of two to three beers daily affecting magnesium levels. - Type 2 diabetes mellitus with an A1c of 8.0% noted in July needed consideration for medication affordability. - Peripheral neuropathy associated with diabetes; recent A1c at 8.0%. - Edema noted in lower extremities; connection to cardiac function considered. - Addressing risk factors for hypomagnesemia potentially exacerbated by alcohol intake. - Monitoring of diabetic control and adjustments for affordability of medications. - Ensuring regular follow-ups with urology for prostate health. - Management of peripheral edema through lifestyle or pharmacological interventions as necessary. Review of Systems PHQ Score Initial Depression Screen Score: 0 SCORE Physical Exam Vitals & Measurements T: 36.8 ???C(Tympanic) HR: 86(Peripheral) RR: 18 BP: 142/88 SpO2: 99% HT: 69 in HT: 174 cm WT: 249.122 lb WT: 113 kg BMI: 37.32 General: alert, no acute distress ENMT: oral mucosa moist Cardiovascular: Regular rate and rhythm, normal peripheral perfusion Respiratory: Lungs clear to auscultation, respirations non labored Extremities: 2+ pitting edema over legs Neurological: oriented x 4, level of consciousness appropriate for age, CN II-XII intact, motor strength equal & normal bilaterally, speech normal Abdomen: Soft, Non-tender, Non-distended, + Bowel sounds Assessment/Plan 1. Type 2 diabetes mellitus with peripheral neuropathy (E11.42: Type 2 diabetes mellitus with diabetic polyneuropathy) - Review A1c of 8.0%. - Consider Trulicity for affordability. Ordered: Basic Metabolic Panel Body Mass Index (BMI) documented 3008F Current tobacco non-user 1036F Depression Screening Negative 3352F Discharge medications reconciled with current medications in outpatient record 1111F HBA1C 8.0 to <9.0 Most Recent Level 3052F HgbA1c Influenza immunization status assessed 1030F Magnesium Level Medication list documented in medical record 1159F Most recent diastolic blood pressure 80-89 mm Hg 3079F Most recent LDL-C 100-129 mg/dL 3049F Most recent systolic blood pressure >= 140 mm Hg 3077F Patient screen for fall risk: no falls in last year or 1 fall with no injury in last year 1101F Review of all meds by a prescribing practitioner or clinical pharmacist documented in EHR 1160F 2. Alcohol abuse with other alcohol-induced disorder (F10.188: Alcohol abuse with other alcohol-induced disorder) - Advise on alcohol reduction. Ordered: Basic Metabolic Panel HgbA1c Magnesium Level 3. 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 Major depressive disorder, recurrent, moderate (F33.1: Major depressive disorder, recurrent, moderate) - Stable. - No issues at all Ordered: Basic Metabolic Panel HgbA1c Magnesium Level 5. Gastroesophageal reflux disease without esophagitis (K21.9: Gastro-esophageal reflux disease without esophagitis) - NO issues at all. Discussed issues with PPI Ordered: Basic Metabolic Panel HgbA1c Magnesium Level 6. Feeling of incomplete bladder emptying (R39.14: Feeling of incomplete bladder emptying) - Continue seeing Urology Ordered: Basic Metabolic Panel HgbA1c Magnesium Level 7. Diastolic dysfunction (I51.89: Other ill-defined heart diseases) - No symptoms at this time. Ordered: Basic Metabolic Panel HgbA1c Magnesium Level 8. Edema (R60.9: Edema, unspecified) - Recognize cardiac connection. - 2 plus today. - Pt needs to elevated his legs. Ordered: Basic Metabolic Panel HgbA1c Magnesium Level 9. Hypomagnesemia (E83.42: Hypomagnesemia) - Consider outpatient management. - Discuss alcohol's effect on magnesium absorption. Ordered: Basic Metabolic Panel HgbA1c Magnesium Level 10. Hypokalemia (E87.6: Hypokalemia) - Will recheck today. Ordered: Basic Metabolic Panel HgbA1c Magnesium Level 11. BMI 37.0-37.9, adult (Z68.37: Body mass index [BMI] 37.0-37.9, adult) BMI education added Ordered: Basic Metabolic Panel HgbA1c Magnesium Level 12. Former smoker (Z87.891: Personal history of nicotine dependence) Please con (more content not included)... Normal [facility] Comment on above: Result Comment: Elec tronically Signed By: Ruiz REYNOLDS, Nancy Thompson\.br\Date and Time Signed: 10/08/24 08:19 EDT [id number] 10-08-2024 HbA1c (Bld) [Mass fraction] 8.7 % High <=5.9 [facility] Comment on above: Performed By: #### [id number] #### [facility] [address] [place] [address] Magnesiumon 10-08-2024 Magnesium [Mass/Vol] 0.9 mg/dL Abnormal 1.3-2.4 [facility] Comment on above: Result Comment: Crit ical Result Verified by Repeat Analysis Critical Result S_M.9 Called to and read back by: DR. ANDRE at: 10/08/2024 19:50:28 by:ZARA Performed By: #### 2 [id number] #### [facility] [address] [place] [address] eGFRon 10-08-2024 eGFR 54 mL/min/1.73 m2 Low >=59 [facility] Comment on above: Performed By: #### 1 [id number] #### [facility] [address] [place] [address] Ambulatory Visit Summaryon 0 09-24-2024 Ambulatory Visit Summary Ambulatory Visit Summary ALICJA REYES :1955 Visit Date:09/24/2024 Ambulatory Visit Instructions Your Care Team Attending Physician - EMMY REYNOLDS, Bryant Vogel Primary Care Physician - Ruiz REYNOLDS, Nancy Thompson This Is Your Medications List Misc Prescription (Misc DME Prescription) amlodipine (amLODIPine 5 mg Tab) atorvastatin (atorvastatin 40 mg Tab) gabapentin (gabapentin 100 mg Cap) lisinopril (lisinopril 40 mg Tab) magnesium oxide (magnesium oxide 400 mg Tab) metformin (Glucophage XR 500 mg Tab-ER) metoprolol (metoprolol succinate 25 mg ER Tab) multivitamin (Therapeutic Multiple Vitamin Tab) naproxen (Aleve) omeprazole (omeprazole 20 mg Cap-DR) potassium chloride (potassium chloride 10 mEq Cap-ER) semaglutide (Ozempic 2 mg/3 mL (0.25 mg or 0.5 mg dose) subcutaneous solution) tamsulosin (tamsulosin 0.4 mg Cap) Procedures Performed Arthroscopy, back surgery, Carpal tunnel release, Colonoscopy, hand and elbow surgery LEFT, Hand tendon repaired, Spinal fusion. What to do next Scheduled Follow-Up Appointments Tuesday 8:00 AM EDT With: Nancy Grace MD Where: [address] [address]- Tuesday 8:15 AM EDT With: Nancy Grace MD Where: [address] [address]- Tuesday2025 8:00 AM EST With: Where: [address] [address]- Medications What How Much When Why Instructions [...] Milligram By Mouth 3 times a day Unchanged metformin (Glucophage XR 500 mg Tab-ER) 2 Tablets By Mouth 2 times a day Unchanged metoprolol (metoprolol succinate 25 mg ER Tab) 1 Tablets By Mouth Every day Unchanged [facility] Prescription ([facility] DME Prescription) 'Number 1' Glucometer and test strips testing BS twice daily- will bring equipment to [facility] f/ u to update brand Unchanged multivitamin (Therapeutic Multiple Vitamin Tab) See instructions Oral Daily Unchanged naproxen (Aleve) 220 Milligram By Mouth Every 12 hours se as needed Unchanged omeprazole (omeprazole 20 mg Cap-DR) See instructions TAKE 1 CAPSULE BY MOUTH EVERY DAY Unchanged potassium chloride (potassium chloride 10 mEq Cap-ER) See instructions TAKE 1 CAPSULE BY MOUTH EVERY DAY Unchanged semaglutide (Ozempic 2 mg/ 3 mL (0.25 mg or 0.5 mg dose) subcutaneous solution) 0.25 Milligram Subcutaneous Every week Type 2 diabetes mellitus with hypercholesterolemia BMI 37.0-37.9, adult Obesity (BMI 30-39.9) Former smoker Hypomagnesemia Unchanged tamsulosin (tamsulosin 0.4 mg Cap) 1 Capsules By Mouth Once a day (in the evening) Allergies CeleBREX (Anxiety, Unknown) Problems Ongoing - Any problem that you are currently receiving treatment for. 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 Normal [facility] CHEMISTRYOrdered By: SYSTEM SYSTEM on 09-24-2024 Free PSA [Mass/Vol] 0.4 ng/mL Invalid Interpretation Code [facility] Comment on above: Interpretive Data: T he concentration of free PSA and total PSA determined with assays from different manufacturers can vary due to differences in assay methods and specificity. Values obtained with different assistant associate professor's assays cannot be used interchangeably. The methodology used to obtain this result was chemiluminescence using [employer] Access Hybritech PSA reagent and Access Hybritech free PSA reagent. Free PSA/Total PSA [Mass fraction] 20.0 % Low >=25.0% [facility] Prostate specific Ag [Mass/Vol] 2.0 ng/mL Normal 0.1 - 3.5 ng/mL [facility] Comment on above: Interpretive Data: T he concentration of PSA determined by different manufacturers can vary due to differences in assay methods and reagent specificity. Values obtained from different assay methods cannot be used interchangeably. The methodology used for this result was chemiluminescence using [employer] Bunkr's Access Hybritech PSA reagent. Ambulatory Visit Summaryon 0 09-03-2024 Ambulatory Visit Summary Ambulatory Visit Summary ALICJA REYES :1955 Visit Date:09/03/2024 Ambulatory Visit Instructions Your Care Team Attending Physician - RAMANDEEP PORTER PA-C Primary Care Physician - Nancy Grace MD This Is Your Medications List Misc Prescription ([facility] DME Prescription) amlodipine (amLODIPine 5 mg Tab) [...] (Temporal Artery) 37 ???C Heart Rate (Peripheral) 76 Respiratory Rate 18 Blood Pressure 136/82 Height 174 cm Height 69 in Weight 112 kg Weight 246.917 lb BMI 36.99 What to do next Scheduled Follow-Up Appointments Tuesday 8:00 AM EDT With: Nancy Grace MD Where: [address] [address]- Tuesday 8:15 AM EDT With: Ruiz REYNOLDS, Nancy Thompson Where: [address] [address]- Tuesday2025 8:00 AM EST With: Where: [address] [address]- Medications What How Much When Why Instructions [...] BS twice daily- will bring equipment to [facility] f/ u to update brand Unchanged multivitamin (Therapeutic Multiple Vitamin Tab) See instructions Oral Daily Unchanged naproxen (Aleve) 220 Milligram By Mouth Every 12 hours se as needed Unchanged omeprazole (omeprazole 20 mg Cap-DR) See instructions TAKE 1 CAPSULE BY MOUTH EVERY DAY Unchanged potassium chloride (potassium chloride 10 mEq Cap-ER) See instructions TAKE 1 CAPSULE BY MOUTH EVERY DAY Unchanged semaglutide (Ozempic 2 mg/ 3 mL (0.25 mg or 0.5 mg dose) subcutaneous solution) 0.25 Milligram Subcutaneous Every week Type 2 diabetes mellitus with hypercholesterolemia BMI 37.0-37.9, adult Obesity (BMI 30-39.9) Former smoker Hypomagnesemia Unchanged tamsulosin (tamsulosin 0.4 mg Cap) 1 Capsules By Mouth Once a day (in the evening) Allergies CeleBREX (Anxiety, Unknown) Problems Ongoing - Any problem that you are currently receiving treatment for. 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 Normal [facility] CHEMISTRYOrdered By: SYSTEM SYSTEM on 08-22-2024 Magnesium [Mass/Vol] 0.6 mg/dL Invalid Interpretation Code 1.3 - 2.4 mg/dL [facility] Comment on above: Result Comment: Crit ical Result Verified by Repeat Analysis Critical Result S_M.6 Called to and read back by: DR. NANCY GRACE at: 08/22/2024 18:46:44 by:CAROLINE Taylor 08-22-2024 Magnesium [Mass/Vol] 0.6 mg/dL Abnormal 1.3-2.4 [facility] Comment on above: Result Comment: Crit ical Result Verified by Repeat Analysis Critical Result S_M.6 Called to and read back by: DR. NANCY GRACE at: 08/22/2024 18:46:44 by:CAROLINE Performed By: #### 2 [id number] #### [facility] [address] [place] [address] Ambulatory Visit Summaryon 0 08-21-2024 Ambulatory Visit Summary Ambulatory Visit Summary ERIC ALICJA Garvin :1955 Visit Date:08/21/2024 Ambulatory Visit Instructions Your Diagnosis Elevated PSA Incomplete bladder emptying Hypotonic neurogenic bladder BPH without urinary obstruction PIN (prostatic intraepithelial neoplasia) Your Care Team Attending Physician - LISS Reddy APRN-Juancho, Estefania X Primary Care Physician - Nancy Grace MD [...] RAMANDEEP PORTER PA-C Where: [facility] [address] [place] [address]- Tuesday 8:00 AM EDT With: Nancy Grace MD Where: [address] [id number]- Tuesday 8:15 AM EDT With: Nancy Grace MD Where: [address] [id number]- Tuesday2025 8:00 AM EST With: Where: [address] [address]- You Need to Schedule the Following Appointments Follow Up with Maureen MTZ, ROSENDOC, Estefania X, FAM, URL When: Where: Medications [...] BS twice daily- will bring equipment to [facility] f/ u to update brand Contact prescribing [...] w (more content not included)... Normal [facility] Urology Office/Clinic Noteon 08-21-2024 Urology Office/Clinic Note [...] 7.4% (PSAD 0.31) MRI of prostate 07/21/23 [facility] - A focal area involving the anterior [...] urinary tract symptoms) MRI of prostate 07/21/23 [facility] - Prostate volume 26 cc. Grossly distended urinary bladder with partially visualized bilateral hydroureter. TALAMANTES is suspected and fol (more content not included)... Normal [facility] Comment on above: Result Comment: Elec [...] methods and specificity. Values obtained with different assistant associate professor's assays cannot be used interchangeably. The methodology used to obtain this result was chemiluminescence using Ephraim Bunkr's Access Hybritech PSA reagent and Access Hybritech [...] for this result was chemiluminescence using Ephraim Bunkr's Access Hybritech PSA reagent. BASIC METABOLIC PANLon 08-14 Anion gap [Moles/Vol] 12 mmol/L Normal 5-15 [facility] Comment on above: Performed By: #### B MP #### [facility] ([id number]) [address], [address] [place] [address] Calcium [Mass/Vol] 9.3 mg/dL Normal 8.5-10.5 [facility] Comment on above: Performed By: #### B MP #### [facility] ([id number]) [address], [address] [place] [address] Chloride [Moles/Vol] 100 mmol/L Normal 98-109 [facility] Comment on above: Performed By: #### B MP #### [facility] ([id number]) [address], [address] [place] [address] CO2 [Moles/Vol] 24 mmol/L Normal 22-32 [facility] Comment on above: Performed By: #### B MP #### [facility] ([id number]) [address], [address] [place] [address] Creatinine [Mass/Vol] 1.35 mg/dL High 0.60-1.30 [facility] Comment on above: Result Comment: METH OD TRACEABLE TO IDMS STANDARD Performed By: #### B MP #### [facility] ([id number]) [address] [address] [place] [address] GFR/1.73 sq M.predicted among non-blacks MDRD (S/P/Bld) [Vol rate/Area] 56 mL/min/{1.73_m2} Low >59 [facility] Comment on above: Result Comment: Reported eGFR is based on the CKD-EPI 2020 equation that does not use a race coefficient. Performed By: #### B MP #### [facility] ([id number]) [address] [facility], [address] [place] [address] Glucose [Mass/Vol] 204 mg/dL High 65-99 [facility] Comment on above: Performed By: #### B MP #### [facility] ([id number]) [address] [facility] [address] [place] [address] Potassium [Moles/Vol] 4.3 mmol/L Normal 3.5-5.0 [facility] Comment on above: Performed By: #### B MP #### [facility] ([id number]) [address] [facility], [address] [place] [address] Sodium [Moles/Vol] 136 mmol/L Normal 134-146 [facility] Comment on above: Performed By: #### B MP #### [facility] ([id number]) [address] [address] [place] [address] Urea nitrogen [Mass/Vol] 18 mg/dL Normal 5-27 [facility] Comment on above: Performed By: #### B MP #### [facility] ([id number]) [address] [address] [place] [address] Basic metabolic 1998 panelon 08-14-2024 Anion gap [Moles/Vol] 12 mmol/L 5 - 15 mmol/L [facility] Calcium [Mass/Vol] 9.3 mg/dL 8.5 - 10.5 mg/dL [facility] Chloride [Moles/Vol] 100 mmol/L 98 - 109 mmol/L [facility] CO2 [Moles/Vol] 24 mmol/L 22 - 32 mmol/L [facility] Creatine [Mass/Vol] 1.35 mg/dL High 0.60 - 1.30 mg/d L [facility] Comment on above: METHOD TRACEABLE TO IDMS STANDARD GFR/1.73 sq M.predicted among non-blacks MDRD (S/P/Bld) [Vol rate/Area] 56 mL/min/{1.73_m2} Low - PINF [facility] Comment on above: Reported eGFR is based on the CKD-EPI 2020 equation that does not use a race coefficient. PERFORMED AT [facility] [address] [facility],[place] [address] Glucose [Mass/Vol] 204 mg/dL High 65 - 99 mg/dL [facility] Interpretation and review of laboratory results Abnormal [facility] Potassium [Moles/Vol] 4.3 mmol/L 3.5 - 5.0 mmol /L [facility] Sodium [Moles/Vol] 136 mmol/L 134 - 146 mmol/L [facility] Urea nitrogen [Mass/Vol] 18 mg/dL 5 - 27 mg/dL [facility] Family Medicine Office/Clini c Noteon 08-08-2024 Family [...] Rating Pain Score : 4 Radha Tao Pelon - 07/09/2024 8:12 EST Hearing and Vision Screening FT FT Whisper Test Comments : patient reports hearing loss. Does not wear hearing aides. Has had hearing checked recently. Vision Screen Comments : Does not wear corrective lens. Had eyes check 2-3 years ago. Radha Tao Pelon - 07/09/2024 8:12 EST Advance Directive FT Advance Directive : No Patient Wishes to Receive Further Information on Advance Directives : Yes Organ Donation Consent : Yes Radha Tao Pelon - 07/09/2024 8:12 EST Procedures / Surgeries [...] times a week, 1-2. 12/29/2023 17:32 - Travis RN, Susanne M: 6-10 beers daily (Last Updated: 07/09/2024 08:21:55 EST by Radha Tao) Tobacco: Low Risk Former smoker, quit more than 30 days ago, quit 2005 Tobacco Use:. Comments: 01/13/2024 9:00 - Alicja Castellon: uses chewing tobacco 07/25/2023 14:15 - Alicja Castellon: former smoker, quit 2005 (Last Updated: 05/18/2024 12:51:20 [facility] by Gil Conley) Former smoker, quit more [...] Pain Lo (more content not included)... Normal [facility] Comment on above: Result Comment: Elec tronically Signed By: Nancy Grace MD\.br\Date and Time Signed: 08/08/24 10:11 EST\.br\Electronically Co-Signed By: Radha Tao\.br\Date and Time Co-Signed: 07/09/24 09:23 EST Ambulatory Visit Summaryon 0 07-16-2024 Ambulatory Visit Summary Ambulatory Visit Summary ERIC ALICJA D :1955 Visit Date:07/09/2024 Ambulatory Visit Instructions Your [...] Grace MD This Is Your Medications List [facility] Pres[facility] ([facility] Prescription) amlodipine (amLODIPine 5 mg Tab) [...] APRN, Estefania Santiago Where: [facility] [address] [facility] [place] [address]- Tuesday 8:15 AM EDT With: Nancy Grace MD Where: [address] [address]- Tuesday 8:15 AM EDT With: Nancy Grace MD Where: [address] [id number]- Tuesday2025 8:00 AM EST With: Where: [address] [id number]- Medications What How Much When Why Instructions [...] BS twice daily- will bring equipment to [facility] f/ u to update brand Unchanged multivitamin [...] discomfort t (more content not included)... Normal [facility] Ambulatory Visit Summary Ambulatory Visit Summary ALICJA REYES :1955 Visit Date:07/16/2024 Ambulatory Visit Instructions Your Diagnosis Type 2 diabetes mellitus with hypercholesterolemia BMI 37.0-37.9, adult Obesity (BMI 30-39.9) Former smoker Hypomagnesemia Pure hypercholesterolemia, unspecified Your Care Team Attending Physician - Nancy Grace MD Primary Care Physician - Nancy Grace MD This Is Your Medications List [facility] Prescription ([facility] Prescription) amlodipine (amLODIPine 5 mg Tab) [...] APRN, Estefania Santiago Where: [facility] of [address] [address]- Tuesday 8:15 AM EDT With: Nancy Grace MD Where: [address] [id number]- Tuesday 8:15 AM EDT With: Nancy Grace MD Where: [address] [address]- Tuesday2025 8:00 AM EST With: Where: [address] [address]- Medications What How Much When Why Instructions New semaglutide (Ozempic 2 mg/ 3 mL (0.25 mg or 0.5 mg dose) subcutaneous solution) 0.25 Milligram Subcutaneous Every week Type 2 diabetes mellitus with hypercholesterolemia BMI 37.0-37.9, adult Obesity (BMI 30-39.9) Former smoker Hypomagnesemia Pickup at [facility]/pharmacy #[id number] Unchanged amlodipine (amLODIPine 5 mg Tab) See [...] a day (in the evening) Pharmacy Information [facility]/pharmacy #[id number]: [address], [place] [phone] Allergies CeleBREX (Anxiety, Unknown) Problems Ongoing - [...] You ma (more content not included)... Normal [facility] CHEMISTRYOrdered By: SYSTEM SYSTEM on 07-16-2024 [...] The patient has been managing this with msok-oeh-gnlghcz magnesium supplements. He denies any symptoms of [...] qWeek, # 3 mL, Refills(s) 0, Pharmacy: [facility]/pharmacy #[id number], 175.3, cm, 07/16/24 8:18:00 EST, Height/Length Dosing, 114, kg, 07/16/24 8:18:00 EST, Weight Dosing Body Mass Index (BMI) documented 3008F Current tobacco non-user 1036F Depression Screening Negative 3352F Influenza immunization status assessed 1030F Lab Specimen Collect 09854 Magnesium Level Medication list documented in medical [...] qWeek, # 3 mL, Refills(s) 0, Pharmacy: [facility]/pharmacy #[id number], 175.3, cm, 07/16/24 8:18:00 EST, Height/Length Dosing, 114, kg, 07/16/24 8:18:00 EST, Weight Dosing Magnesium Level 3. Obesity (BMI 30-39.9) (E66.9: Obesity, unspecified) Encouraged dietary modifications and physical activity. Consideration for medications that could provide weight loss benefits inclusive to their primary use, such as Ozempic. Ordered: semaglutide, 0.25 mg, SubCutaneous, qWeek, # 3 mL, Refills(s) 0, Pharmacy: [facility]/pharmacy #[id number], 175.3, cm, 07/16/24 8:18:00 EST, Height/Length Dosing, 114, kg, 07/16/24 8:18:00 EST, Weight Dosing Magnesium Level 4. Former smoker (Z87.891: Personal history of nicotine dependence) Reinforced smoking cessation and its benefits on long-term health outcomes. Ordered: semaglutide, 0.25 mg, SubCutaneous, qWeek, # 3 mL, Refills(s) 0, Pharmacy: [facility]/pharmacy #[id number], 175.3, cm, 07/16/24 8:18:00 EST, Height/Length Dosing, 114, kg, 07/16/24 8:18:00 EST, Weight Dosing Magnesium Level 5. Hypomagnesemia (E83.42: Hypomagnesemia) Blood sample required to reassess serum magnesium levels. Depending on results, magnesium supplementation may be adjusted. Ordered: sema (more content not included)... Normal [facility] Comment on above: Result Comment: Elec tronically Signed By: Nancy Grace MD\.br\Date and Time Signed: 07/16/24 08:57 EST Magnesiumon 07-16-2024 Magnesium [Mass/Vol] 0.5 mg/dL Abnormal 1.3-2.4 [facility] Comment on above: Result Comment: Crit ical Result Verified by Previous Result Critical Result S_M.5 Called to and read back by: NANCY GRACE at: 07/16/2024 18:21:49 by:KENA Performed By: #### 2 [id number] #### [facility] [address] [place] [address] Pre-Visit Planningon 025 Pre-Visit Planning Pre-Visit Planning From: Valarie Solis To: Nancy Grace MD; Sent: 07/06/2024 11:24:03 EST Subject: Pre-Visit Planning Due Date/Time: 07/06/2024 11:24:00 EST Caller Name: ALICJA REYES; Caller Number: , M [place] Dr. Grace. During a pre-visit planning chart review, I noted the following documentation in the medical record: Current Problem List: Alcohol abuse uncomplicated, Hypokalemia, Hypomagnesemia, Major depressive disorder recurrent moderate, HTN, and Tachycardia. Current Medication List: amlodipine, lisinopril, magnesium oxide, metoprolol, and potassium chloride. 07/25/2023 MWV: AUDIT Score =5. 12/29/2023 [facility] IP Nephrology Consult Note: Alcoholism: Discussed with him stopping his alcohol use. He states that he would rather than stop drinking alcohol. He currently drinks 6-10 beers per day. Consult case management for rehabilitation. [facility] protocol. 01/05/2024 Office Visit Note: HPI- Still [...] feel free to contact me at extension [phone]. Thank you! Valarie Solis LPN Clinical Product Advisor [place] [address] Extension: [phone] [email or web address] From: Nancy Grace MD To: Valarie Solis; [...] -Alcohol-induced polyneuropathy From: Nancy Grace MD To: Vaalrie Solis; Sent: 07/16/2024 09:39:43 EST Subject: RE: Pre-Visit Planning Caller Name: ERICALICJA; Caller Number: H , M Yes for both. He does not like to admit this is the cause, I think I discussed this with him at last visit. Normal [facility] Ambulatory Visit Summaryon 0 07-09-2024 Ambulatory [...] This Is Your Medications List Misc Prescription ([facility] Prescription) amlodipine (amLODIPine 5 mg Tab) [...] APRN, Aurora X Where: [facility] [address] [place] [address]- Tuesday 8:15 AM EDT With: Nancy Grace MD Where: [address] [address]- Tuesday 8:15 AM EDT With: Nancy Grace MD Where: [address] [address]- Medications What How Much When [...] BS twice daily- will bring equipment to [facility] f/ u to update brand Unchanged multivitamin [...] for choosing us for your care. Normal [facility] CBC w/ Auto Diffon 5 Basophils/100 WBC (Bld) 0.7 % Normal 0.0-2.0 [facility] Comment on above: Performed By: #### 2 [id number] #### [facility] [address] [place] [address] Basophils/Leukocytes Auto (Bld) [Pure # fraction] 0.0 E9/L Normal 0.0-0.2 [facility] Comment on above: Performed By: #### 2 [id number] #### [facility] [address] [place] [address] Eosinophils (Bld) [#/Vol] 0.2 E9/L Normal 0.0-0.5 [facility] Comment on above: Performed By: #### 2 [id number] #### [facility] [address] [place] [address] Eosinophils/100 WBC (Bld) 3.3 % Normal 0.0-8.0 [facility] Comment on above: Performed By: #### 2 045930 #### [facility] [address] [place] [address] Erythrocyte distribution width (RBC) [Ratio] 12.9 % Normal 10.9-14.2 [facility] Comment on above: Performed By: #### 2 054275 #### [facility] [address] [place] [address] Hematocrit (Bld) [Volume fraction] 39.3 % Normal 37.7-49.0 [facility] Comment on above: Performed By: #### 2 547339 #### [facility] [address] [place] [address] Hemoglobin (Bld) [Mass/Vol] 13.3 g/dL Low 13.5-17.5 [facility] Comment on above: Performed By: #### 2 977839 #### [facility] [address] [place] [address] Lymphocytes (Bld) [#/Vol] 1.4 E9/L Normal 1.0-4.0 [facility] Comment on above: Performed By: #### 2 286487 #### [facility] [address] [place] [address] Lymphocytes/100 WBC (Bld) 21.3 % Normal 14.0-50.0 [facility] Comment on above: Performed By: #### 2 359824 #### [facility] [address] [place] [address] MCH (RBC) [Entitic mass] 33.6 pg Normal 27.0-34.0 [facility] Comment on above: Performed By: #### 2 496606 #### [facility] [address] [place] [address] MCHC (RBC) [Mass/Vol] 33.9 g/dL Normal 31.4-36.0 [facility] Comment on above: Performed By: #### 2 342434 #### [facility] [address] [place] [address] MCV (RBC) [Entitic vol] 99.1 fL Normal 80.0-100.0 [facility] Comment on above: Performed By: #### 2 930644 #### [facility] [address] [place] [address] Monocytes (Bld) [#/Vol] 0.7 E9/L Normal 0.2-1.0 [facility] Comment on above: Performed By: #### 2 583661 #### [facility] [address] [place] [address] Neutrophils (Bld) [#/Vol] 4.1 E9/L Normal 2.0-7.5 [facility] Comment on above: Performed By: #### 2 440694 #### [facility] [address] [place] [address] Neutrophils/100 WBC (Bld) 63.7 % Normal 36.0-75.0 [facility] Comment on above: Performed By: #### 2 068823 #### [facility] [address] [place] [address] Platelet mean volume (Bld) [Entitic vol] 8.0 fL Normal 6.4-10.8 [facility] Comment on above: Performed By: #### 2 938058 #### [facility] [address] [place] [address] Platelets (Bld) [#/Vol] 249.0 E9/L Normal 150.0-500.0 [facility] Comment on above: Performed By: #### 2 421244 #### [facility] [address] [place] [address] RBC (Bld) [#/Vol] 4.0 E12/L Low 4.3-5.9 [facility] Comment on above: Performed By: #### 2 719399 #### [facility] [address] [place] [address] WBC corrected for nucl RBC Auto (Bld) [#/Vol] 6.4 E9/L Normal 4.0-11.0 [facility] Comment on above: Performed By: #### 2 902631 #### [facility] [address] [place] [address] CHEMISTRYOrdered By: SYSTEM SYSTEM on 07-09-2024 Albumin [...] (Bld) [Mass fraction] 8.0 % High <=5.9% [facility] ChemAutoSS CMPon 07-09-2024 Albumin [Mass/Vol] 4.3 g/dL Normal 3.3-5.0 [facility] Comment on above: Performed By: #### 2 [id number] #### [facility] [address] [place] [address] Albumin/Globulin (S) [Mass conc ratio] 1.7 Normal 1.1-2.2 [facility] Comment on above: Performed By: #### 2 100911 #### [facility] [address] [place] [address] ALP [Catalytic activity/Vol] 75 Int._Unit/L Normal 21-98 [facility] Comment on above: Performed By: #### 2 281144 #### [facility] [address] [place] [address] ALT No additional P-5'-P [Catalytic activity/Vol] 16 Int._Unit/L Normal 6-46 [facility] Comment on above: Performed By: #### 2 419002 #### [facility] [address] [place] [address] Anion gap [Moles/Vol] 14 mmol/L Normal 6-16 [facility] Comment on above: Performed By: #### 2 095269 #### [facility] [address] [place] [address] AST [Catalytic activity/Vol] 17 Int._Unit/L Normal 5-43 [facility] Comment on above: Performed By: #### 2 941783 #### [facility] [address] [place] [address] Bilirubin [Mass/Vol] 0.9 mg/dL Normal 0.0-1.1 [facility] Comment on above: Performed By: #### 2 082528 #### [facility] [address] [place] [address] Calcium [Mass/Vol] 8.0 mg/dL Low 8.9-11.1 [facility] Comment on above: Performed By: #### 2 349152 #### [facility] [address] [place] [address] Chloride [Moles/Vol] 102 mmol/L Normal 101-111 [facility] Comment on above: Performed By: #### 2 697083 #### [facility] [address] [place] [address] CO2 [Moles/Vol] 27 mmol/L Normal 21-31 [facility] Comment on above: Performed By: #### 2 738789 #### [facility] [address] [place] [address] Creatinine [Mass/Vol] 1.3 mg/dL Normal 0.5-1.3 [facility] Comment on above: Performed By: #### 2 116968 #### [facility] [address] [place] [address] Globulin (S) [Mass/Vol] 2.6 g/dL Normal 1.4-4.0 [facility] Comment on above: Performed By: #### 2 044449 #### [facility] [address] [place] [address] Glucose [Mass/Vol] 291 mg/dL High 55-199 [facility] Comment on above: Performed By: #### 2 480204 #### [facility] [address] [place] [address] Potassium [Moles/Vol] 3.7 mmol/L Normal 3.5-5.3 [facility] Comment on above: Performed By: #### 2 533840 #### [facility] [address] [place] [address] Protein [Mass/Vol] 6.9 g/dL Normal 6.0-7.8 [facility] Comment on above: Performed By: #### 2 057593 #### [facility] [address] [place] [address] Sodium [Moles/Vol] 139 mmol/L Normal 135-145 [facility] Comment on above: Performed By: #### 2 217962 #### [facility] [address] [place] [address] Urea nitrogen [Mass/Vol] 12 mg/dL Normal 5-21 [facility] Comment on above: Performed By: #### 2 265231 #### [facility] [address] [place] [address] Urea nitrogen/Creatinine [Mass ratio] 9 No Units Low 10-20 [facility] Comment on above: Performed By: #### 2 982178 #### [facility] [address] [place] [address] Family Medicine Office/Clini c Noteon 07-09-2024 Family [...] Concerns: [facility]. 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 He also mentions self-catherization due to a [...] Ratio 5 (more content not included)... Normal [facility] Comment on above: Result Comment: Elec [...] Normal 4.0 - 11.0 E9/L Remisol Heme [id number] 07-09-2024 HbA1c (Bld) [Mass fraction] 8.0 % High <=5.9 [facility] Comment on above: Performed By: #### 7 [id number] #### [facility] [address] [place] [address] Lipid Panelon 07-09-2024 Cholesterol [Mass/Vol] 112 mg/dL Low 120-200 [facility] Comment on above: Performed By: #### 2 636115 #### [facility] [address] [place] [address] Cholesterol in HDL [Mass/Vol] 41 mg/dL Invalid Interpretation Code [facility] Comment on above: Result Comment: '>= 60 LOW RISK' '<= 40 HIGH RISK' Performed By: #### 2 276445 #### [facility] [address] [place] [address] Cholesterol in LDL [Mass/Vol] 59 mg/dL Normal <=129 [facility] Comment on above: Performed By: #### 2 540180 #### [facility] [address] [place] [address] Cholesterol in VLDL [Mass/Vol] 20 mg/dL Normal 7-40 [facility] Comment on above: Performed By: #### 2 175788 #### [facility] [address] [place] [address] Triglyceride [Mass/Vol] 100 mg/dL Normal <=149 [facility] Comment on above: Performed By: #### 2 409531 #### [facility] [address] [place] [id number] Pre-Visit Planningon 025 Pre-Visit Planning Pre-Visit Planning From: Valarie Solis To: Ruiz REYNOLDS, Nancy Thompson; Sent: 07/06/2024 11:32:39 EST Subject: Pre-Visit Planning Due Date/Time: 07/06/2024 11:32:00 EST Caller Name: ALICJA REYES; Caller Number: , Nicole [place] Dr. Grace. During a [...] feel free to contact me at extension [phone]. Thank you! Valarie Solis LPN Clinical Product Advisor [address] [address] Extension: [phone] [email or web address] From: Nancy Grace MD To: Valarie Solis; Sent: 07/09/2024 09:09:48 EST Subject: RE: Pre-Visit Planning Caller Name: ALICJA REYES; Caller Number: H , M -Type 2 diabetes mellitus with peripheral neuropathy, Yes he has it and we discussed it today at his visit. [facility] Pre-Visit Planning Pre-Visit Planning From: Valarie Solis To: Nancy Grace MD; Sent: 07/06/2024 11:03:26 EST Subject: Pre-Visit Planning Due Date/Time: 07/06/2024 11:03:00 EST Caller Name: ALICJA REYES; Caller Number: H , W[place] Dr. Grace. During a pre-visit [...] you! Valarie Solis LPN Clinical Documentation Improvement SpecialistAndrew [place] [address] TEAMS or [email or web address] From: Ruiz REYNOLDS, Nancy Thompson To: Valarie Solis; Sent: 07/09/2024 07:49:46 EST Subject: RE: Pre-Visit Planning Caller Name: ALICJA REYES; Caller Number: Sana , M Added Morbid Obesity. Normal [facility] U Microalbon 07-09-2024 Albumin DL <= 20 mg/L (U) [Mass/Vol] 10.5 mg/dL High 0.0-1.9 [facility] Comment on above: Performed By: #### 1 [id number] #### [facility] [address] [place] [address] eGFRon 07-09-2024 eGFR 59 mL/min/1.73 m2 Normal >=59 [facility] Comment on above: Performed By: #### 1 [id number] #### [facility] [address] [place] [address] Provider Letteron 07-02-2024 Provider Letter Provider Letter July 02, 2024 ALICJA REYES [address] [place] [id number] : 1955 Dear Alicja , We have [...] to this matter. Sincerely, [facility] [address] [address] Normal [facility] EMG 2 Extremitieson 05-22-20 [facility] A generalized proces s such as a polyneuropathy which is axonal loss in type and moderate to severe in degree electrically Carpal tunnel syndrome bilaterally, moderate right and mild left, may be overestimated given polyneuropathy Cervical radiculopathy can not be excluded [facility] 11-12 Nerveson [facility] A generalized proces s such as a polyneuropathy which is axonal loss in type and moderate to severe in degree electrically Carpal tunnel syndrome bilaterally, moderate right and mild left, may be overestimated given polyneuropathy Cervical radiculopathy can not be excluded [facility] Ambulatory Visit Summaryon 1 07-19-2023 [...] Appointments Tuesday 8:00 AM EST With: Where: [facility] [address] [address]- Tuesday 8:15 AM EST With: EMMY REYNOLDS, Bryant Vogel Where: [facility] [address] [place] [address]- Medications What How Much When Instructions Unchanged [...] for choosing us for your care. [facility] Family Medicine Office/Clini c Noteon 05-18-2024 Family [...] bedtime), # 30 cap(s), Refills(s) 0, Pharmacy: [facility]/pharmacy #[id number], 175.3, cm, 05/18/24 7:58:00 EST, Height/Length Dosing, 112.1, kg, 05/18/24 7:58:00 EST, Weight Dosing EMG Right Lower Extremity (RLE) [facility] External Ambulatory Referral 2. Former smoker (Z87.891: [...] Daily, # 90 cap(s), Refills(s) 0, [id number], 175.3, cm, 05/18/24 7:58:00 EST, Height/Length [...] Daily, # 90 cap(s), Refills(s) 0, [id number], 175.3, cm, 05/18/24 7:58:00 EST, Height/Length [...] No qualifying data available Patient Education Paresthesia, Eqcn-vm-Jdwy Problem List/Past Medical History Ongoing Alcohol abuse [...] mg, Oral, (more content not included)... Normal [facility] Comment on above: Result Comment: Elec tronically Signed By: MARINO KEARNS CNP\.br\Date and Time Signed: 05/18/24 08:48 EST Magnesiumon 02-28-2024 Magnesium [Mass/Vol] 0.5 mg/dL Abnormal 1.3-2.4 [facility] Comment on above: Result Comment: Crit ical Result S_M.5 Called to and read back by: NOBLE OLIVAS at: 02/28/2024 15:00:56 by:[email or web address] Critical Result Verified by Repeat Analysis Performed By: #### 2 [id number] ####[facility] [address] [place] [address] CHEMISTRYOrdered By: SYSTEM SYSTEM on 02-22-2024 Albumin [...] 02-22-2024 Albumin [Mass/Vol] 4.1 g/dL Normal 3.3-5.0 [facility] Comment on above: Performed By: #### 1 [id number] #### [facility] [address] [place] [address] Anion gap [Moles/Vol] 15 mmol/L Normal 6-16 [facility] Comment on above: Performed By: #### 1 [id number] #### [facility] [address] [place] [address] Calcium [Mass/Vol] 8.4 mg/dL Low 8.9-11.1 [facility] Comment on above: Performed By: #### 1 [id number] #### [facility] [address] [place] [address] Chloride [Moles/Vol] 101 mmol/L Normal 101-111 [facility] Comment on above: Performed By: #### 1 [id number] #### [facility] [address] [place] [address] CO2 [Moles/Vol] 26 mmol/L Normal 21-31 [facility] Comment on above: Performed By: #### 1 [id number] #### [facility] [address] [place] [address] Creatinine [Mass/Vol] 1.3 mg/dL Normal 0.5-1.3 [facility] Comment on above: Performed By: #### 1 [id number] #### [facility] [address] [place] [address] Glucose [Mass/Vol] 274 mg/dL High 55-199 [facility] Comment on above: Performed By: #### 1 [id number] #### [facility] [address] [place] [address] Phosphate [Mass/Vol] 2.4 mg/dL Normal 1.9-4.6 [facility] Comment on above: Performed By: #### 1 [id number] #### [facility] [address] [place] [address] Potassium [Moles/Vol] 4.1 mmol/L Normal 3.5-5.3 [facility] Comment on above: Performed By: #### 1 [id number] #### [facility] [address] [place] [address] Sodium [Moles/Vol] 138 mmol/L Normal 135-145 [facility] Comment on above: Performed By: #### 1 0760784 #### [facility] [address] [place] [address] Urea nitrogen [Mass/Vol] 14 mg/dL Normal 5-21 [facility] Comment on above: Performed By: #### 1 [id number] #### [facility] [address] [place] [address] Urea nitrogen/Creatinine [Mass ratio] 11 No Units Normal 10-20 [facility] Comment on above: Performed By: #### 1 [id number] #### [facility] [address] [place] [address] eGFRon 02-22-2024 eGFR 59 mL/min/1.73 m2 Normal >=59 [facility] Comment on above: Order Comment: Order added by Discern Expert. Performed By: #### 1 [id number] #### [facility] [address] [place] [address] CHEMISTRYOrdered By: SYSTEM SYSTEM on 01-30-2024 Magnesium [Mass/Vol] 0.5 mg/dL Invalid Interpretation Code 1.3 - 2.4 mg/dL [facility] Chem S Comment on above: Result Comment: Crit ical Result Verified by Repeat Analysis called to Marcin Grace by [id number] at 01/30/2024 19:19:23 EDT Results Verified By Repeat Analysis Magnesiumon 01-30-2024 Magnesium [Mass/Vol] 0.5 mg/dL Abnormal 1.3-2.4 [facility] Comment on above: Result Comment: Crit ical Result Verified by Repeat Analysis called to Marcin Grace by [id number] at 01/30/2024 19:19:23 EDT Results Verified By Repeat Analysis Performed By: #### 2 [id number] #### [facility] [address] [place] [address] Magnesium [Mass/Vol] 0.5 mg/dL Abnormal 1.3-2.4 [facility] Comment on above: Result Comment: Crit ical Result Verified by Repeat Analysis Performed By: #### 2 [id number] #### [facility] [address] [place] [address] [facility] 01-18-20 [facility] Case Information Case Priority: None Programs: -- Referral Source: Upsetter Referral Reason: Care coordination Case Type: Transition [...] 1 Outcome: Left message-voicemail Contact Type: Complex care professionalsmanager academic Name: Alicja Castellon Notes: TCM#2- message left for return call. Created By: Alicja Castellon Date: January 03, 2024 Method: Phone call Type: Outbound Duration (min): 12 Outcome: Case discussion Contact Type: medical staffing coordinator Contact Name: Alicja Castellon Notes: TCM#1- see tcm note. Created By: Alicja Castellon Date: January 02, 2024 Method: Phone call Type: Outbound Duration (min): 1 Outcome: Left message-voicemail Contact Type: medical staffing coordinator Contact Name: Alicja Castellon Notes: TCM#1- left vm for return call. Created By: Alicja Castellon [facility] Ambulatory Visit Summaryon 0 01-13-2024 Ambulatory [...] Appointments Tuesday 8:00 AM EST With: Where: [facility] [address] [address]- Tuesday 8:15 AM EST With: EMMY REYNOLDS, Bryant Vogel Where: [facility] [address] [place] [address]- Medications What How Much When Instructions Unchanged [...] 1 Tablets By Mouth Every day Unchanged [facility] Prescription ([facility] DME Prescription) 'Number 1' Glucometer and test [...] for choosing us for your care. Normal [facility] Heart and Vascular Office/Cl inic Noteon 01-13-2024 [...] See Instructions (more content not included)... Normal [facility] Comment on above: Result Comment: Elec [...] methods and specificity. Values obtained with different assistant associate professor's assays cannot be used interchangeably. The methodology used to obtain this result was chemiluminescence using Wesabe's Access Hybritech PSA reagent and Access Hybritech [...] used for this result was chemiluminescence using Wes[employer]'s YongChe Hybritech PSA reagent. Magnesiumon 01-11-2024 Magnesium [Mass/Vol] 0.9 mg/dL Abnormal 1.3-2.4 [facility] Comment on above: Result Comment: Crit ical Result Verified by Repeat Analysis Critical Result S_M.9 Called to and read back by: DR KTAZ at: 01/11/2024 19:10:59 by:GALO Performed By: #### 2 [id number] #### [facility] [address] [place] [address] Ambulatory Visit Summaryon 0 01-10-2024 Ambulatory Visit Summary Ambulatory Visit Summary ERIC ALICJA Garvin :1955 Visit Date:01/10/2024 Ambulatory Visit Instructions Your [...] Appointments Tuesday 8:00 AM EDT With: Where: [address] [address]- Tuesday 9:00 AM EDT With: Buster REYNOLDS, Javier Garvin Where: [facility] Tuesday 8:00 AM EST With: Where: [address] [address]- Tuesday 8:15 AM EST With: Bryant TAO MD Where: [facility] [address] [facility] [place] [address]- You Need to Schedule the Following Appointments Follow Up with Bryant TAO MD, URL When: Comments: 6 mos Where: [address] [place] [address]- Medications What How Much When Instructions [...] BS twice daily- will bring equipment to [facility] f/ u to update brand Unchanged multivitamin [...] for choosing us for your care. Normal [facility] Urology Office/Clinic Noteon 01-10-2024 Urology Office/Clinic [...] urinary tract symptoms) MRI of prostate 07/21/23 [facility] - Prostate volume 26 cc. Grossly distended [...] 04/04/23 - 6.1 MRI of prostate 07/21/23 [facility] - A focal area involving the anterior aspect of the R peripheral zone at the level of the mid gland measuring 5 x 4 mm. No gross or subcapsular extension is seen. PI-RADS 4. S/p TRUS/bx intuitive 04/05/24. Path report neg for malignancy. PIN is [...] L p (more content not included)... Normal [facility] Comment on above: Result Comment: Elec tronically Signed By: Bryant TAO MD\.br\Date and Time Signed: 01/10/24 09:02 EDT\.br\Electronically Co-Signed By: Alis Velásquez\.br\Date and Time Co-Signed: 01/10/24 08:59 EDT Ambulatory Visit Summaryon 0 01-05-2024 Ambulatory Visit Summary Ambulatory Visit Summary ALICJA REYES Bharathi :1955 Visit Date:01/05/2024 Ambulatory Visit Instructions Your [...] REYNOLDS, Bryant Vogel Where: [facility] [address] [place] [address] [place] [address]- Tuesday 8:00 AM EDT With: Where: [address] [address]- Tuesday 9:00 AM EDT With: Buster REYNOLDS, Javier Garvin Where: [facility] Tuesday 8:00 AM EST With: Where: [address] [address]- Medications What How Much When Why Instructions [...] 1 Tablets By Mouth Every day Unchanged [facility] Prescription ([facility] D[facility] Prescription) 'Number 1' Glucometer and test [...] choosing us for your care. Normal [facility] Family Medicine Office/Clini c Noteon 01-05-2024 Family Medicine Office/Clinic Note Family Medicine Office/Clinic Note HPI Staff Alicja is a 68 year old male presenting for hospital follow up TCM: Hospital: [facility] Admission date: 12/29/23 Discharge date: 12/30/23 Symptoms the patient presented with: sent by pcp for hypomagnesia Current concerns: doesn't care for Dacia Bañuelos the STRATEGY ANALYST she took care of him in the [...] 130-139 mm (more content not included)... Normal [facility] Comment on above: Result Comment: Elec tronically Signed By: Ruiz REYNOLDS, Nancy Cordoba.br\Date and Time Signed: 01/05/24 08:26 EDT Population Health 01-03-20 [facility] Case Information Case Priority: None Programs: -- Referral Source: Upsetter Referral Reason: Care coordination Case Type: Transition [...] name, street address and date of verified Program Enrollment Provides verbal consent for enrollment [...] this am. (more content not included)... Normal [facility] PTH Intacton 01-01-2024 Parathyrin.intact [Mass/Vol] 23 pg/mL Invalid Interpretation Code 15-65 [facility] Comment on above: Result Comment: Perf ormed at: [facility] [address] [id number] PhD Malik Fernando Performed By: #### 1 [id number] #### [facility] [address] [place] [address] C Urineon 12-31-2023 Bacteria identified Cx Nom (U) Microbiology PROCEDURE: Urine Culture [R1] SOURCE: U CleanCatch BODY SITE: COLLECTED DATE/TIME: 12/29/2023 15:42 EDT RECEIVED DATE/TIME: 12/29/2023 17:12 EDT START DATE/TIME: 12/29/2023 17:12 EDT FREE TEXT SOURCE: [facility], Dacia BAÑUELOS [facility], Dacia FINAL REPORTS Final Report [] Verified [...] Locations R1: This test was performed at: [facility], [address] [place] [address], [address]- , , [facility] Comment on above: Performed By: #### 2 [id number] #### [facility] [address] [place] [address] General Message Officeon [place] Message Office --- --- --- --- --- --- --- --- --- From: Nancy Ferreira To: ALICJA REYES Sent: 12/31/23 02:30:27 AM EDT Subject: Discharge Summary Ready to View A summary regarding your recent visit is available in the Documents section of your health record. Normal [facility] Miscellaneous-LCon 12-30 Lab Miscellaneous COMMENT Invalid Interpretation Code [facility] Comment on above: Order Comment: Aldao m sample, not 24hr collection Urine Result Comment: Test Ordered: [id number] Magnesium, U Magnesium, U 5.1 mg/dL CB Reference Range: Not Estab. Performed at: CB [facility] [address] [id number] PhD Malik Fernando Performed By: #### 1 [id number] #### [facility] [address] [place] [address] CHEMISTRYOrdered By: Lab ROP User on 12-30-2023 Glucose [Mass/Vol] 168 mg/dL High 55 - 99 mg/dL FTM C POC Subsection Comment on above: Result Comment: [place] gloria RN/ POC Device SN [id number] 1 Invalid Interpretation Code [facility] POC Subsection POC User ID [id number] 1 Invalid Interpretation Code [facility] POC Subsection POC Username NAVEEN AMANDA Invalid Interpretation Code FT POC Subsection Glucose [Mass/Vol] 150 mg/dL High 55 - 99 mg/dL FTM C POC Subsection Comment on above: Result Comment: [place] gloria RN/ POC Device SN [id number] 1 Invalid Interpretation Code [facility] POC Subsection POC User ID [id number] 1 Invalid Interpretation Code [facility] POC Subsection [...] 12-05 Glucose [Mass/Vol] 168 mg/dL High 55-99 [facility] Comment on above: Result Comment: [place] gloria RN/ Performed By: #### 2 [id number] #### [facility] [address] [place] [address] HEMATOLOGYOrdered By: SYSTEM SYSTEM on 12-30-2023 Basophils/100 [...] 12-30-2023 Inpatient Clinical Summary Inpatient Clinical Summary [address] [address] Clinical Summary Person Information: Name: ALICJA REYES Age: 68 Years : 1955 Sex: Male PCP: Nancy Grace MD Marital Status: Race: White Ethnicity: Non- or Language: Peruvian Visit Id: Visit Reason: Abnormal diagnostic test; SENT BY DR GRACE MAGNESIUM IS LOW Speciality: Acuity: Enc Type: Inpatient Med Service: Medical Arrival: 12/29/2023 13:33:35 Discharge: Dispo Type: Admitted as IP to this Hosp Address: [address] [place] [phone] Provider Notes: Diagnosis: 1:Hypomagnesemia; 2:UTI (urinary tract [...] MD Referring Physician: Follow up: With: Address: Shyanne: [address] [place] [address] Business (1) Comments: Call for followup appointment in [place] office With: Address: When: Nancy Grace [address] [place] [address] Business (2) 01/05/2024 7:45 AM Type Location Start [facility] Hospital Follow Up w/TCM [facility] 01/05/2024 7:45 AM 01/05/2024 8:05 AM Confirmed URO Office Visit [facility] [place] 01/10/2024 8:15 AM 01/10/2024 8:30 AM Confirmed Cardiology Follow Up (FT) [facility] 01/13/2024 9:00 AM 01/13/2024 9:15 AM Confirmed Medicare Wellness Subsequent [facility] 07/09/2024 8:00 AM 07/09/2024 9:00 AM Confirmed Patient Education Information: How to Take Your Blood Pressure, Gtog-ji-Okyz; Form - Blood Pressure Record Sheet; Urinary Tract Infection, Adult, Lasu-kq-Jrve; Hypomagnesemia cyanocobalamin, levofloxacin, lisinopril, magnesium oxide 400 mg Tab Normal [facility] Inpatient Clinical Summary Inpatient Clinical Summary [address] [address] Clinical Summary Person Information: Name: ALICJA REYES Age: 68 Years : 1955 Sex: Male PCP: Nancy Grace MD Marital Status: Race: White Ethnicity: Non- or Language: Peruvian Visit Id: Visit Reason: Abnormal diagnostic test; SENT BY DR GRACE MAGNESIUM IS LOW Speciality: Acuity: Enc Type: Inpatient Med Service: Medical Arrival: 12/29/2023 13:33:35 Discharge: Dispo Type: Admitted as IP to this Hosp Address: [address] [place] [phone] Provider Notes: Diagnosis: 1:Hypomagnesemia; 2:UTI (urinary tract [...] Follow up: With: Address: When: Nancy Grace [address] [place] [address] [facility] () 01/05/2024 7:45 AM Type Location Start [facility] Hospital Follow Up w/TCM [facility] 01/05/2024 7:45 AM 01/05/2024 8:05 AM Confirmed URO Office Visit [facility] ZAIN Casiano 01/10/2024 8:15 AM 01/10/2024 8:30 AM Confirmed [facility]13/2024 9:00 AM 01/13/2024 9:15 AM Confirmed Medicare Wellness Subsequent [facility] 07/09/2024 8:00 AM 07/09/2024 9:00 AM Confirmed Patient Education Information: Normal [facility] Inpatient Patient Summaryon 12-30-2023 Inpatient Patient [...] EDT With: Ruiz REYNOLDS, Nancy Thompson Where: [address] [address]- Tuesday 8:15 AM EDT With: EMMY REYNOLDS, Bryant Vogel Where: [facility] [address] [place] [address]- Tuesday 9:00 AM EDT With: Buster REYNOLDS, Javier Garvin Where: [facility] Tuesday 8:00 AM EST With: Where: [address] [address]- New Follow Up Appointments after Discharge Follow Up with Nancy Grace When: 01/05/2024 07:45 AM EDT Where: [address] [place] [address]- Business (2) Follow Up with Ramos Euceda When: Comments: Call for followup appointment in [place] office Where: [place] [address] [address]- Business (1) Medications What How Much When Why Instructions Next Dose New acetaminophen (acetaminophen 325 mg Tab) 2 Tablets By Mouth Every 6 hours as needed for Pain start as new med New cyanocobalamin (cyanocobalamin 1000 mcg Tab) 1 Tablets By Mouth Every day Pickup at [facility]/pharmacy #[id number] 12/31/23 9am New levofloxacin (Levaquin 500 mg Tab) 1 Tablets By Mouth Every 24 hours Duration: 10 Days Pickup at [facility]/pharmacy #6177 start as new med today New lisinopril (lisinopril 40 mg Tab) 1 Tablets By Mouth Every day Pickup at [facility]/pharmacy #6177 12/31/23 9am New multivitamin (Therapeutic Multiple Vitamin Tab) See instructions Oral Daily Printed Prescription 12/31/23 9am Changed magnesium oxide (magnesium oxide 400 mg Tab) 1 Tablets By Mouth 2 times a day Pickup at [facility]/pharmacy #6177 12/30/23 9pm Unchanged amlodipine (amLODIPine [...] mg Ta (more content not included)... Normal [facility] Inpatient Patient Summary Inpatient Patient Summary [place] [address] Patient Discharge Instructions PERSON INFORMATION Name: ALICJA [...] TO THE NEAREST EMERGENCY ROOM OR CALL 1 Home Treatment: Devices/Equipment: None Special Services: Additional Instructions: You must decrease your alcohol intake with goal of cessation Take mag oxide as ordered Follow up closely with Dr. Grace for repeat labs, call tuesday for urine culture results Primary Care Physician to provide the following pending test results: Urine culture Follow up: With: Address: When: [address] [place] [phone] Business (1) Comments: Call for followup appointment in [place] office With: Address: When: Nancy [address] [place], [place] [phone] Business (2) 01/05/2024 7:45 AM In the event that this physician does not participate in your insurance network, please consult with your insurance company to find a nearby participating provider. Type Location Start [facility] Hospital Follow Up w/TCM [facility] 01/05/2024 7:45 AM 01/05/2024 8:05 AM Confirmed URO Office Visit [facility] [place] 01/10/2024 8:15 AM 01/10/2024 8:30 AM Confirmed Cardiology Follow Up (FT) [facility] 01/13/2024 9:00 AM 01/13/2024 9:15 AM Confirmed Medicare Wellness Subsequent [facility] 07/09/2024 8:00 AM 07/09/2024 9:00 AM Confirmed Comment: ERIC Song ROBIN D, have received the attached patient education materials/instruction s and have verbalized understanding: Patient Signature Date Clinican/Nurse Signature Date HERE ARE THE MEDICATION CHANGES THAT OCCURRED DURING YOUR HOSPITAL STAY New Medications [id number], [address] [facility] [place] [phone], [phone] cyanocobalamin (cyanocobalamin 1000 mcg Tab) 1 Tablets [...] Medications to Continue Taking That Have Changed [facility]/pharmacy #[id number], [address], [place] [id number], [phone] START: magnesium oxide (magnesium oxide 400 mg [...] Last Dose: (more content not included)... Normal [facility] Inpatient Patient Summary Inpatient Patient Summary [place] [address] Patient Discharge Instructions PERSON INFORMATION Name: ALICJA [...] results: Follow up: With: Address: When: Nancy [place] [address] Business (2) 01/05/2024 7:45 AM In the event that this physician does not participate in your insurance network, please consult with your insurance company to find a nearby participating provider. Type Location Start [facility] Hospital Follow Up w/TCM [facility] [place] 01/05/2024 7:45 AM 01/05/2024 8:05 AM Confirmed URO Office Visit [facility] ZAIN Casiano 01/10/2024 8:15 AM 01/10/2024 8:30 AM Confirmed [facility]/13/2024 9:00 AM 01/13/2024 9:15 AM Confirmed Medicare Wellness Subsequent [facility] 07/09/2024 8:00 AM 07/09/2024 9:00 AM [...] EVERY DAY. (more content not included)... Normal [facility] Miscellaneous-LCon 12-29 Test Code 043777 Invalid Interpretation Code [facility] Comment on above: Order Comment: Rando m sample, not 24hr collection Urine Result Comment: Юлия ected test code Performed By: #### 1 [id number] #### [facility] [address] [place] [address] Reference Laboratory Testing Ordered By: Dacia BAÑUELOS on 12-30-2023 Test Code 218206 1 Invalid Interpretation Code [facility] Comment on above: Result Comment: Юлия ected test code Test Name urine mag Invalid Interpretation Code [facility] TSH With T4fr Reflexon 12-29 TSH Qn 1.54 m[IU]/L Normal 0.34-5.60 [facility] Comment on above: Performed By: #### 1 [id number] #### [facility] [address] [place] [id number] CHEMISTRYOrdered By: Lab ROP User on 12-29-2023 Glucose [Mass/Vol] 170 mg/dL High 55 - 99 mg/dL FTM C POC Subsection POC Device SN [id number] 1 Invalid Interpretation Code [facility] POC Subsection POC User ID [id number] 1 Invalid Interpretation Code [facility] POC Subsection POC Username FAHEEM LUAN Invalid Interpretation Code [facility] POC Subsection CHEMISTRYOrdered By: SYSTEM SYSTEM on [...] Test Name urine mag Invalid Interpretation Code [facility] Comment on above: Order Comment: Kelsey redd sample, not 24hr collection Urine Performed By: #### 1 [id number] #### [facility] [address] [place] [address] Laboratory - Microbiology an d Antimicrobial susceptibilityOrdered By: Amber Jeffries on 12-29-2023 Bacteria identified Cx Nom (U) 75,000 cfu/ml Streptococcus species [facility] URINALYSISOrdered By: SYSTEM SYSTEM on 12-29-2023 [...] that meet specific criteria set forth by [facility]. Epithelial cells.squamous Auto (Urine sed) [...] [#/Area] >75 graded/HPF Invalid Interpretation Code 0-5graded/HPF [facility] UA Auto SS URINALYSISOrdered By: Dacia BAÑUELOS on 12-29-2023 UA Spec Desc Clean Catch (12/29/23 3:42 PM) Normal [facility] UA Auto SS Ambulatory Visit Summaryon 0 [...] REYNOLDS, Bryant Vogel Where: [facility] [place] Invalid Interpretation Code [address] [place] [address]- \.br\ Someone Will Contact You Regarding These Appointments\.br\ [facility] External Ambulatory Referral, Nephrology, 12/27/23 8:10:00 EDT, Hypomagnesemia [facility] Ambulatory Visit Summary Ambulatory Visit Summary [...] REYNOLDS, Bryant Vogel Where: [facility] [place] Invalid Interpretation Code [address] [place] [address]- \.br\ Someone Will Contact You Regarding These Appointments\.br\ [facility] External Ambulatory Referral, Nephrology, 12/27/23 8:10:00 EDT, Hypomagnesemia [facility] BMPon 12-27-2023 Anion gap [Moles/Vol] 14 mmol/L Normal 6-16 [facility] Comment on above: Performed By: #### 2 [id number] #### [facility] [address] [place] [address] Calcium [Mass/Vol] 8.5 mg/dL Low 8.9-11.1 [facility] Comment on above: Performed By: #### 2 [id number] #### [facility] [address] [place] [address] Chloride [Moles/Vol] 104 mmol/L Normal 101-111 [facility] Comment on above: Performed By: #### 2 [id number] #### [facility] [address] [place] [address] CO2 [Moles/Vol] 24 mmol/L Normal 21-31 [facility] Comment on above: Performed By: #### 2 [id number] #### [facility] [address] [place] [address] Creatinine [Mass/Vol] 1.5 mg/dL High 0.5-1.3 [facility] Comment on above: Performed By: #### 2 [id number] #### [facility] [address] [place] [address] Glucose [Mass/Vol] 158 mg/dL Normal 55-199 [facility] Comment on above: Performed By: #### 2 [id number] #### [facility] [address] [place] [address] Potassium [Moles/Vol] 4.7 mmol/L Normal 3.5-5.3 [facility] Comment on above: Performed By: #### 2 [id number] #### [facility] [address] [place] [address] Sodium [Moles/Vol] 137 mmol/L Normal 135-145 [facility] Comment on above: Performed By: #### 2 [id number] #### [facility] [address] [place] [address] Urea nitrogen [Mass/Vol] 19 mg/dL Normal 5-21 [facility] Comment on above: Performed By: #### 2 [id number] #### [facility] [address] [place] [address] Urea nitrogen/Creatinine [Mass ratio] 13 No Units Normal 10-20 [facility] Comment on above: Performed By: #### 2 [id number] #### [facility] [address] [place] [address] CHEMISTRYOrdered By: SYSTEM SYSTEM on 12-27-2023 Anion [...] back by: DOCTOR DIEGO at: 12/27/2023 20:26:51 by:[email or web address] Potassium [Moles/Vol] 4.7 mmol/L Normal 3.5 - [...] for ER follow up ER followup: Hospital: [place] Visit date: 12/23/23 Symptoms the patient dizziness, [...] History Ar (more content not included)... Normal [facility] Comment on above: Result Comment: Elec tronically Signed By: Ruiz REYNOLDS, Nancy Cordoba.br\Date and Time Signed: 12/27/23 08:08 EDT Magnesiumon 12-27-2023 Magnesium [Mass/Vol] 0.9 mg/dL Abnormal 1.3-2.4 [facility] Comment on above: Result Comment: Crit ical Result Verified by Repeat Analysis Critical Result S_M.9 Called to and read back by: DOCTOR DIEGO at: 12/27/2023 20:26:51 by:[email or web address] Performed By: #### 2 [id number] #### [facility] [address] [place] [address] eGFRon 12-27-2023 eGFR 50 mL/min/1.73 m2 Low >=59 [facility] Comment on above: Order Comment: Order added by Discern Expert. Performed By: #### 1 [id number] #### [facility] [address] [place] [address] C Urineon 12-24-2023 Bacteria identified Cx Nom (U) Microbiology PROCEDURE: Urine Culture [R1] SOURCE: U CleanCatch BODY SITE: COLLECTED DATE/TIME: 12/22/2023 08:35 EDT RECEIVED DATE/TIME: 12/22/2023 19:56 EDT START DATE/TIME: 12/22/2023 19:56 EDT FREE TEXT SOURCE: MARINO KEARNS CNP, CNP, SHELLY A FINAL REPORTS Final Report [] Verified Date/Time: 12/24/2023 07:57 EDT 2,000 cfu/ml Mixed skin contaminants Performing Locations R1: This test was performed at: [facility], [address] [place] [address], [id number] , [place], Normal [facility] Comment on above: Performed By: #### 2 [id number] #### [facility] [address] [place] [address] CMPon 12-23-2023 Albumin [Mass/Vol] 4.4 g/dL Normal 3.3-5.0 [facility] Comment on above: Performed By: #### 2 680471 #### [facility] [address] [place] [address] 39812 Albumin/Globulin (S) [Mass conc ratio] 1.5 Normal 1.1-2.2 [facility] Comment on above: Performed By: #### 2 [id number] #### [facility] [address] [place] [address]236 ALP [Catalytic activity/Vol] 62 Int._Unit/L Normal 21-98 [facility] Comment on above: Performed By: #### 2 069666 #### [facility] [address] [place] [address] 05855 ALT No additional P-5'-P [Catalytic activity/Vol] 22 Int._Unit/L Normal 6-46 [facility] Comment on above: Performed By: #### 2 310046 #### [facility] [address] [place] [address] 35515 AST [Catalytic activity/Vol] 21 Int._Unit/L Normal 5-43 [facility] Comment on above: Performed By: #### 2 047921 #### [facility] [address] [place] [address] 99264 Bilirubin [Mass/Vol] 0.9 mg/dL Normal 0.0-1.1 [facility] Comment on above: Performed By: #### 2 945276 #### [facility] [address] [place] [address] 24361 Globulin (S) [Mass/Vol] 2.9 g/dL Normal 1.4-4.0 [facility] Comment on above: Performed By: #### 2 833251 #### [facility] [address] [place] [address] Protein [Mass/Vol] 7.3 g/dL Normal 6.0-7.8 [facility] Comment on above: Performed By: #### 2 388448 #### [facility] [address] [place] [address] Magnesiumon 12-23-2023 Magnesium [Mass/Vol] mg/dL Abnormal 1.3-2.4 [facility] Comment on above: Result Comment: Crit ical Result S_MG:<0.5 Called to and read back by: ANGELLA GUERRERO at: 12/23/2023 08:18:07 by:MELODIE Critical Result Verified by Repeat Analysis Performed By: #### 2 745642 #### [facility] [address] [place] [address] 81077 CBC w/ Auto Diffon 4 Basophils/100 WBC (Bld) 0.7 % Normal 0.0-2.0 [facility] Comment on above: Performed By: #### 2 132377 #### [facility] [address] [place] [address] Basophils/Leukocytes Auto (Bld) [Pure # fraction] 0.1 E9/L Normal 0.0-0.2 [facility] Comment on above: Performed By: #### 2 757674 #### [facility] [address] [place] [address] Eosinophils (Bld) [#/Vol] 0.1 E9/L Normal 0.0-0.5 [facility] Comment on above: Performed By: #### 2 305468 #### [facility] [address] [place] [address] Eosinophils/100 WBC (Bld) 1.5 % Normal 0.0-8.0 [facility] Comment on above: Performed By: #### 2 923544 #### [facility] [address] [place] [address] Erythrocyte distribution width (RBC) [Ratio] 13.3 % Normal 10.9-14.2 [facility] Comment on above: Performed By: #### 2 643351 #### [facility] [address] [place] [address] Hematocrit (Bld) [Volume fraction] 38.5 % Normal 37.7-49.0 [facility] Comment on above: Performed By: #### 2 347586 #### [facility] [address] [place] [address] Hemoglobin (Bld) [Mass/Vol] 13.2 g/dL Low 13.5-17.5 [facility] Comment on above: Performed By: #### 2 565018 #### [facility] [address] [place] [address]87 Lymphocytes (Bld) [#/Vol] 1.4 E9/L Normal 1.0-4.0 [facility] Comment on above: Performed By: #### 2 922868 #### [facility] [address] [place] [address] Lymphocytes/100 WBC (Bld) 18.7 % Normal 14.0-50.0 [facility] Comment on above: Performed By: #### 2 047420 #### [facility] [address] [place] [address] MCH (RBC) [Entitic mass] 33.5 pg Normal 27.0-34.0 [facility] Comment on above: Performed By: #### 2 453951 #### [facility] [address] [place] [address] MCHC (RBC) [Mass/Vol] 34.3 g/dL Normal 31.4-36.0 [facility] Comment on above: Performed By: #### 2 355488 #### [facility] [address] [place] [address] MCV (RBC) [Entitic vol] 97.5 fL Normal 80.0-100.0 [facility] Comment on above: Performed By: #### 2 530120 #### [facility] [address] [place] [address] Monocytes (Bld) [#/Vol] 0.6 E9/L Normal 0.2-1.0 [facility] Comment on above: Performed By: #### 2 501425 #### [facility] [address] [place] [address] Neutrophils (Bld) [#/Vol] 5.3 E9/L Normal 2.0-7.5 [facility] Comment on above: Performed By: #### 2 073686 #### [facility] [address] [place] [address] Neutrophils/100 WBC (Bld) 70.6 % Normal 36.0-75.0 [facility] Comment on above: Performed By: #### 2 169058 #### [facility] [address] [place] [address] Platelet 246.0 E9/L Normal 150.0-500.0 [facility] Comment on above: Performed By: #### 2 450364 #### [facility] [address] [place] [address] Platelet mean volume (Bld) [Entitic vol] 7.6 fL Normal 6.4-10.8 [facility] Comment on above: Performed By: #### 2 320901 #### [facility] [address] [place] [address] RBC (Bld) [#/Vol] 4.0 E12/L Low 4.3-5.9 [facility] Comment on above: Performed By: #### 2 278908 #### [facility] [address] [place] [address] WBC corrected for nucl RBC Auto (Bld) [#/Vol] 7.4 E9/L Normal 4.0-11.0 [facility] Comment on above: Performed By: #### 2 016661 #### [facility] [address] [place] [address] CHEMISTRYOrdered By: Jaime van on 12-22-2023 Anion [...] Anion gap [Moles/Vol] 19 mmol/L High 6-16 [facility] Comment on above: Performed By: #### 2 506913 #### [facility] [address] [place] [address] Calcium [Mass/Vol] 8.2 mg/dL Low 8.9-11.1 [facility] Comment on above: Performed By: #### 2 543534 #### [facility] [address] [place] [address] Chloride [Moles/Vol] 100 mmol/L Low 101-111 [facility] Comment on above: Performed By: #### 2 819600 #### [facility] [address] [place] [address] CO2 [Moles/Vol] 23 mmol/L Normal 21-31 [facility] Comment on above: Performed By: #### 2 439165 #### [facility] [address] [place] [address] Creatinine [Mass/Vol] 1.6 mg/dL High 0.5-1.3 [facility] Comment on above: Performed By: #### 2 170769 #### [facility] [address] [place] [address] Glucose [Mass/Vol] 255 mg/dL High 55-199 [facility] Comment on above: Performed By: #### 2 974913 #### [facility] [address] [place] [address] Potassium [Moles/Vol] 3.8 mmol/L Normal 3.5-5.3 [facility] Comment on above: Performed By: #### 2 909933 #### [facility] [address] [place] [address] Sodium [Moles/Vol] 138 mmol/L Normal 135-145 [facility] Comment on above: Performed By: #### 2 964000 #### [facility] [address] [place] [address] Urea nitrogen [Mass/Vol] 17 mg/dL Normal 5-21 [facility] Comment on above: Performed By: #### 2 172572 #### [facility] [address] [place] [address] Urea nitrogen/Creatinine [Mass ratio] 11 No Units Normal 10-20 [facility] Comment on above: Performed By: #### 2 984528 #### [facility] [address] [place] [address] Family Medicine Office/Clini c Noteon 12-22-2023 Family [...] Diff Comprehensive Metabolic Panel Lab Specimen Collect [id number] Magnesium Level Urnls Dip Stick Auto w/o Microscopy POC 02544 3. Former smoker (Z87.891: Personal history of nicotine dependence) Encouraged to continue as a non-smoker Ordered: Lab Specimen Collect [id number] Urnls Dip Stick Auto w/o Microscopy POC 90470 4. BMI 36.0-36.9,adult (Z68.36: Body mass index [...] at subsequent visits. Ordered: Lab Specimen Collect [id number] Urnls Dip Stick Auto w/o Microscopy POC 67151 Orders: magnesium oxide, 400 mg = 1 [...] moderate Murmur (more content not included)... Normal [facility] Comment on above: Result Comment: Elec tronically Signed By: MARINO KEARNS CNP\benito\Date and Time Signed: 12/22/23 10:28 EDT HEMATOLOGYOrdered [...] 12-22-2023 eGFR 46 mL/min/1.73 m2 Low >=59 [facility] Comment on above: Order Comment: Order added by Discern Expert. Performed By: #### 1 [id number] #### [facility] [address] [place] [address] Coding Summary.on 11-29-2023 Coding Summary. XTCNKguy13WLl8mAt+PG h lYWQ+HB6ZDEArK99mbYLx mX2aK2WWCRuOGhivDVLVG UqHJuHftdSvWJ1zgNJwBB Ju IC8+TS2hTSTkZvpnaSLua 4W8bZV0H98exq6vXKfwdE F5GAVzPbOfyakse7dpqJa 6IDcuNmluOyBt RVPivW09ONW7bF12Kc87c EEirPRbr4ajyXy6HuEzSI TcFDI3iOuiFUopl4FwVBK dC16rmQLzv6Z2 ETYjnJjchRJyOlTlcLM7d M2sQFgiobuwe3viqpivVg i9ii81yFKvl1G4zWB7R0B yklF9DBUiaAXt IrkrjECAlN7ytuwpc1jec ujnYmZgOZJdJWp1AHr3RY IodJutTsTcLR22QNN9PSU rpzUvH4MrREMt iNvxSdH8a9N2Rb5XN2PZG trdI8LHPNFUCAtlbRD+PC 39vw71C9FtLzjlPls5SXV xOPZ7mPN9gV0e EWHgDNudl4K4iOC9P8Cpg oUjxg9cr6fuNVZhBYzvE4 6fmTVrb0K9MPRtcDK3LZV nzPqeKcCucI27 Oyc+UZLthOmbj2VyJavqi 2kog3sxhLz5VolwSYPiwn CavMfkUJN6k6OvHo5yPPD wpHT4aPH2kM6p UcMkVxQ2AMmvK701PdGfn WKaCcwoB12rK8DwjJG+PH AiKww0RJOnhHcyKQ8jD2O hZGRpbmctbGVm yLfnYA7oTXAwdhijIWXjb T7uLFXcG4i5BoWxKaA1IR jaJ9SiZECgzrqcCm11iI9 vRrGtCaW1BVwx U4ItleL6DWKljSKuKMreE RQ8R95kj7C5VQYgTRCwGA G9yWM4sX2iyJuizujpwDE mdDsgdmVydGlj BMyeYDwcN360PBPkgKulK kNvZGluZyBEYXRlOiAgMD YvMjUvMjAyNDwvdGQ+PHR nBIJ6jGsgQVBc aUBgGRmoSt7tcBwzeHbqJ X2zESDjbzttJZKoyD7nAX LgcRBwsZrbYO9wKGCydlp ol459GnZgDTI5 TSBbrVAsV4KvfP9eScBxM UPpVCPoK0BspYIxILtcC0 49NObeEpJ5UIHrhfErG5M sLWFsaWduOiB0 h2P4Ay8Am1PdufckI5Rpj SDeXnBcFyatSAc8N8SxPv wvdHI+DO62TAGlLU73CZb 7ITQ1rZjjAAyw UZSdN3EolA8oIwZrCEXyE GRkOyc+PHRhYmxlIHdpZH RoPScxMDAlJyBzdHlsZT0 xFm3eRPCfZVLb eIccmOLkTsLzx9qiEDAuR XyeRY7zzSgwC2VmxPF2IJ Opb6f0Ra60Z06mB9XdnSP +BBFzoTN3jTV6 iS1oFfPxHpR4QJdqO370Q eUicNDpSynek9juw6dzvK z0QvO2XENirzPrmMhwQRM 1d5PjQt08F83d IHdpZHRoPSIxNSUiIHZhb Twlof9czV1yUb4+PGNvbC M3eKJ0iE0bMxTaErY1LXr aB132RsMicIFy Ofxjs5mjc8midEr7SnYjG LVqueEazEvjUXZ2x3JiMz 62K3WfmPtfv9TvEro6ue7 3kWBxp8A5xHJ9 N8BmROHjqibacNXblLatF D6oMSDarygoIDUyvN0hYK XzD5o1ZyNwJlP5QFlzJ7L esfI3ORNteYVy HAIpiGALiF8tilute0pws axeSxVlFEIxNFh9ZOe6QS MkhWshYbXsMMU1DoK1EIJ 9lUJibA0wbJbb miiyiC5uRzb+BRD2bRSgk QPACV4vHthpaQD+PHRkIH W5hEbqJHecOEAjvG5qWJH gK7h7KrCcBiW1 NGbiA2IhfzI1JONzdAWuJ PBcrXIYzH7tpwduz4socr ymSrKtPGBhUIk9YGy4CLZ saWduOiBsZWZ0 SlS3JUR2aKVvdT9gxSkwb xagiT4aQnj+QmlydGggRG B4CVb9P6LjDfl3WEGlmUv eWQ5zsOPeTCvk Kh7csHovhZocOH1vYSEry vjvg031UlGfj9zaJGYbaE CqXJjiIQR7Y18ap1L7XWF aSVVlHQR2nNV2 rI5arJrtbtoreXHjzKaeg aVkoVgiSCxwDEsnR875NH DwbYusYcYhUPt7U8WdWkl 2PQRlcPhuQZ8m jNEsBSzdJh8lrAjybRerX C3iRFInyjbit415OoUme1 qgCIZcsXYnCGicXDL2S41 hc7M6MEUjKZWu TQR8xOC7bX2brGibejdbu GVmdDsgdmVydGljYWwtYW zyD644XAUrgDinCkJhdUx 1J8NwBum8RRVt jElePA8ebXAoXKglLq3se VpgdXllNC2zCSAucuwde1 87YqOhy1enNVYpnADfPKv fSFO1O37zs9R4 VJRrJPFwLLZ8uEA3qR7lm GlnbjogbGVmdDsgdmVydG sxUKzbDSlcI648XOAcfJn nPlBhdGllbnQg FMqaRKt6U9EdImllmQR+P X48BSBwRA00xWLcyYMve2 qqgZm8SwEbJGSfMZJ1fCq qNSlff4OvVPPd Z30anNEsu0G0KWNujXrkp QZkFzMjhJL0jV5uYGcidk ngg6mnnftoRzlgg4ojde7 8pF13A46tUGac ZHRoPSIzMCUiIHZhbGlnb k8ftB0kUg9+IXEfsHF6zN G1fV2dDVNvGoE4VHhrD33 9InRvcCIvPjxj h2iwk6dndJc1UkF8WIFvy yCzkTgsHVG8g9DeHc79P8 9sIHdpZHRoPSIyMCUiIHZ njEycls2zyJ1s Ii8+TRHpaIK0sKX9dU4sL rXqLkS4IYdrN770ZnEtpT MfPtouI74tT3DskJI+PHR oVzl3LPXiqRtg VL8exZXbPXlbSp4wRTE4V kWcXpXdEEgnK5ImUPXmvr ratsaybFW8RFItLGMpoZ0 4Kf9ryXujQJHp hIKHrP0eqchzf8dbboepV hUaURMuGFl8ZGq2DISouB ptLzJfABM6JsJ1FTW4vGU mzD2aoQvcdxyb yG0uR9XoFISeouqlHh29u D8wPcEpAhX8KEskXrt+TE SIPlBYN0UlPJYKUyiBHYD 5U2BoDtj5BBMn yTloTG1cdAZdVVffOl3ln SruzVspPN2bKUPxxcenPI HymR1hNRPemWPjuMzrBW3 dGWPpxqogf954 PsBjKKI9AMAofGYyH4Xlm C7hKhAjUMTiMKWpI3QphX CmYGbaE909SDjpZgA5IXB htdQgZ0ViFVCu fRthCcH6g9B8Oc7eIB1lB I9uXXM6SP38ZN85zFLqh3 Z5rIE0M3IsBFYkuqsscpt faUC7MPWrEEEu zC15aVKfXBkfZk0nz2C6q 715OVFxFFNtsY07Om5nrC sjNWZllVAXzW0bybscz6y vcjogIzAwMDAw JMh1ZRj7HYVqoMzpWxVvI SO2EmZ6ZIG3gCWzuG2paL nucaqgrM9hEsn+NjkgWWV cheK6X4XvLrw1 LNKfcQutZR6dgJZdLJgkN s0xkTrvwEkxDH2dCNHayz ajOMQbsW5oQICigNNsmJu uQR5kMHTelqtq l461RkRqKQK0WEQzsWTiK 9MqgJ1tPwLrEZVgRZNzS0 YibOOqNApjP793LWmxAgD 0UOAmvyJhK8Ix ZKHfkExbXrR8c6M7Ln5HM YrqJN19TY33zCNky4V9cG R9D0FuKAUkvycedepzkOJ 9ORHgSPKsnR88 sHEcCJkkLt4dk8W8a628S UZmIMAfxW54Er2ppAyzSW BddVCCaQ4rhotlo4vdxqt gIzAwMDAwMDt0 HXi3VLVclGxlRcRoWOJ4M cT4XLF7pOJyvX8vcQgrui lobO7dAqb+Y9C4wHN3jXZ udDwvdGQ+PC90 sd78Z2RkQohaZdi4UERcF CP8jUL6eA6gVTYiEArso6 H4oRF1P2GevwHofo8yq3d zEIKnIZkjV03n uLMbd8Z3TIBdzSS0XXGgo AugEwQwjU04Xop+PGNvbG iuu5QsZldvj6xbe4dckWl 9IjMwJSIgdmFs nHcjLSS7b5QoJk17L70xT HdpZHRoPSIzMCUiIHZhbG bukm3xfY4fMw7+PGNvbCB 6xQB4hQ2yNuBk YpQ9KQdxF689RtQszWFbR ngbz6cph6ewcRl7NnNfMI HjhnRhuPcdNCA8k5WzJf0 3J6JubJqiu0Ia Pat6rr50aNEnb9F8eBB3L 3BhZGRpbmctbGVmdDogMC 3mMRGqqjykBTSayC1hILI lE1w8RyBgUcA6 DTazF2SnwbD8OYGovRSuR FMgjFRQeC5kcosxb8iuas moYmQeOWHbEJa2SLf6KXK saWduOiBsZWZ0 LpY3YZN5tBQwrG9uaMxgu fmhwQ4nSyq+ZYc0u7cgyZ RvVJ6seZM0EM36ER64xFV hl3H9sWL3K5Ad DSXludpvrgxhbXJ6VYOmQ FJchZ72Xy0baNocUv0mEP KgFTF8UZEsuXOfB8JudU4 yOiAjMDAwMDAw L1JxeLOeBJbbZ039IVztX aG3GYSbozAiX8CkAWGoaA yqAoI5s8F1Zh3WPH50GV2 1MP56bSBtk8L9 bAK0G4SuQWVqxoguuklxb DX0VHYkMKZorT84Ri5fmD qtVt5gVCGdEWO9TIFplVZ mI0PuaJ0kMaQc QCLmQAPaI5YjiWEeKIimQ 418MFciUdT3IWWvndGrL0 WqZYHqqCzjNpC0b0O7Ut1 LMr45DS27HJ14 mTZvv8U0dGB5C4XuNUZny svffsaybUG1AWCuCPKdqF 17Au4ymLtySr3fSXKkSIN 1NUYufAIxS1Ja eK1bSnNeSIZkJGDlM7Vin OLtNOckM572TNbbNlU9XL AhohQxU3XpASDhqVuhBgW 0q0B5Iz6DFDoc fpd6E7JfHmbmwWY+PC90Y XFyEM89hXJpvVUmc3nrzA h1SdWiOYNnRZX4bBloFCs ww1FeDGEtX01p qDTfl4P9FWBem (more content not included)... Normal [facility] IntraOperative Documentson 0 11-29-2023 IntraOperative Documents [id number] .00TIFF Normal [facility] Consent for Procedure/Surger yon 11-28-2023 Consent for Procedure/Surgery [id number]# 1.00TIFF Normal [facility] Consent for Treatmenton - Consent for Treatment [id number]#1 .00TIFF Normal [facility] Inpatient Patient Summaryon 11-28-2023 Inpatient Patient Summary [place] [id number] Clinical Summary Person Information Name: ALICJA REYES Age: 68 Years : 1955 Sex: Male PCP: Nancy Grace MD Marital Status: Race: White Ethnicity: Non- or Language: Peruvian Visit Id: Visit Reason: FEELING OF INCOMPLETE BLADDER EMPTYING AND BPH WITH LUTS Speciality: Acuity: Enc Type: Outpatient Med Service: Surgery Arrival: 11/28/2023 13:21:43 Discharge: Dispo Type: Address: [address] [place] [address] [id number] Provider Notes: Diagnosis: Problems Active Hypertension Feeling [...] Mouth every day. Refills: 6. Misc Prescription ([facility] Prescription) Alcohol prep pads Use to test blood sugars daily Dx E11.9. Refills: 3. Misc Prescription ([facility] Prescription) One Touch Ultra 2 glucose meter kit Use to tests sugars daily E11.9. Refills: 0. Misc Prescription ([facility] Prescription) One touch ultra 2 test strips Use to tests sugars once a day Dx E11.9. Refills: 3. Misc Prescription ([facility] Prescription) Soft click lancets Use to [...] MD Follow up: With: Address: When: [address], [address], [place] [phone] Business (1) Comments: As we discussed, I [...] State Cardiology Follow Up (FT) [facility] [place] 12/16/2023 9:00 AM 12/16/2023 9:15 AM Confirmed URO Office Visit [facility] EU [place] 01/10/2024 8:15 AM 01/10/2024 8:30 AM Confirmed FM Medicare Wellness Subsequent [facility] FM [place] 07/09/2024 8:00 AM 07/09/2024 (more content not included)... Normal [facility] IntraOperative Documentson 0 11-28-2023 IntraOperative Documents [id number] 1.00TIFF Normal [facility] Main OR Intraoperative Recor don 11-28-2023 Main OR Intraoperative Record IntraOp Document Type FTURO Summary Primary Physician: Bryant TAO MD Finalized Date/Time: 11/28/23 15:54:06 Pt. Name: ALICJA REYES/Sex: 1955 Male Med Rec #: [id number] Physician: Bryant TAO MD Financial #: [id number] Pt. Type: O Room/Bed: / Admit/Disch: 11/28/23 [...] Angie Vogel Role Performed Surgeon - Primary Senior It Engineer - Primary Scrub - Primary Time In [...] Verified (If Participants Yolande DAVID, Monica Applicable) Francisco York CST, Kimberly A Time [...] By: Monica Lanier RN 11/28/23 15:54 Normal [facility] Main OR Preoperative Recordo n 11-28-2023 Main OR Preoperative Record Holding Area Document Type FTURO Summary Primary Physician: Bryant ATO MD Finalized Date/Time: 11/28/23 15:10:28 Pt. Name: ALICJA REYES/Sex: 1955 Male Med Rec #: [id number] Physician: Bryant TAO MD Financial #: [id number] Pt. Type: O Room/Bed: / Admit/Disch: 11/28/23 [...] Complaints of Pain: No Skin Integrity Intact, [place], Warm, & Dry Vitals - EU Blood Pressure 170/90 Pulse 77 bpm Respirations 80 br/min SPO2 Last Modified By: Ivania Hager LPN 11/28/23 15:10:23 Finalized By: Ivania Hager LPN Document Signatures Signed By: Ivania Hager LPN 11/28/23 15:10 Normal [facility] Operative Reporton Operative Report Patient: ALICJA REYES Age: 68 years Sex: Male : 1955 Associated Diagnoses: None Author: Bryant TAO MD Procedure Operative Information Details: Date/ Time: 11/28/2023 15:54:00. Pre-Op Dx: Feeling of incomplete bladder emptying (LZX24-AQ R39.14, Working, Medical), Hypotonic neurogenic bladder (ITC34-WG N31.9, Working, Medical), Urinary retention (HEL16-IJ R33.9, Working, Medical), BPH with obstruction/lower urinary tract symptoms (UQH83-XA N40.1, Working, Medical). Post-Op Dx: Same. Anesthesia [...] this. He agrees with the plan.. Normal [facility] Comment on above: Result Comment: Elec tronically Signed By: Bryant TAO MD\.br\Date and Time Signed: 11/28/23 15:57 EDT Outpatient Surgery Discharge Instructionon 11-28-2023 Outpatient Surgery Discharge Instruction [id number]# 1.00TIFF Normal [facility] Outpatient Surgery Discharge Instruction [place] [id number] Patient Discharge Instructions PERSON INFORMATION Name: ALICJA REYES Date of : 1955 Current Date: 11/28/2023 15:54:26 PHYSICIANS Admitting Physician: Bryant TAO MD Comment: Discharge Diagnosis: ALICJA RYEES has been given the following list of follow-up instructions, prescriptions, and patient education materials: IF UNABLE TO CONTACT YOUR PHYSICIAN AND YOU FEEL IT IS AN EMERGENCY, GO TO THE NEAREST EMERGENCY ROOM OR CALL 911 Follow up: With: Address: When: Bryant TAO [address] [place] [address], [address], [place] [phone] [facility] (1) Comments: As we discussed, I [...] Start Finish [facility] [place] [facility]23 9:00 AM 12/16/2023 9:15 AM Confirmed URO Office Visit [facility] [place] 01/10/2024 8:15 AM 01/10/2024 8:30 AM Confirmed FM Medicare Wellness Subsequent [facility] 07/09/2024 8:00 AM 07/09/2024 9:00 AM Confirmed [...] to serve you. Thank you for choosing [facility] Normal [facility] Family Medicine Office/Clini c Noteon 11-01-2023 [...] Comments influe (more content not included)... Normal [facility] Comment on above: Result Comment: Elec [...] numbers. This can be done either in [place]ian ([place] or metric measurements. Note that charts and online BMI calculators are available to help you find your BMI quickly and easily without having to do these calculations yourself. To calculate your BMI in [place]ian ([place] measurements: 1. Measure your weight in [...] for Disease Control and Prevention: www.cdc.gov ? [place] Heart Association: www.heart.org ? National Heart, Lung, and Blood [place]: www.nhlbi.nih.gov Summary ? Body mass index (BMI) is a number that is calculated from a person's weight and height. ? BMI may help estimate how much of a person's weight is composed of fat. BMI can help identify those who may be at higher risk for certain medical problems. ? BMI can be measured using [place]uvian measurements or metric measurements. ? BMI charts are used to identify whether you are underweight, normal weight, overweight, or obese. This information is not intended to replace advice given to you by your health care provider. Make sure you discuss any questions you have with your health care provider. Document Revised: 02/13/2020 Document Reviewed: 12/21/2019 [employer] Patient Education ? 2022 [employer]. Normal [facility] Consent for Treatmenton 10-04 Consent for Treatment [id number] .00TIFF Normal [facility] Heart and Vascular Office/Cl in Noteon 10-19-2023 Heart and Vascular Office/Clinic Note [...] with voice recognition artificial intelligence software, specifically [employer], [employer] and or [employer]. Substitutions may have occurred due to the [...] 400 m (more content not included)... Normal [facility] Comment on above: Result Comment: Elec tronically Signed By: James CHRISTIAN, Jacinto Butler\.oliver\Date and Time Signed: 10/19/23 08:50 EDT Physician Orderon 10-19-2023 Physician Order [id number]# 1.00TIFF Normal [facility] Pathology Noteon 10-17-2023 Pathology Note [id number] .00TIFF Normal [facility] Ambulatory Visit Summaryon 0 09-22-2023 Ambulatory Visit Summary ERICKOANTONIO Garvin :1955 Visit Date:09/22/2023 Ambulatory Visit Instructions Your [...] Bryant TAO MD Where: [facility] [address] [address]- \.br\ You Need to Schedule the Following Appointments\.br\ Follow Up with EMMY REYNOLDS, Bryant Vogel, URL When: \.br\ Where:\.br\ [address] [place] [address] 3\.br\ [place] [address]-\.br\ \.br\ Medications\.br\ What How Much When Instructions\.br\ [...] including vitamins, herbs, eye drops, creams, and msbv-rwa-vbcgzyg medicines.\.br\ ? \.br\ Any problems you or [...] you to take them.\.br\ ? \.br\ Taking cbvt-xth-vniyhkx medicines, vitamins, herbs, and supplements.\.br\ Tests\.br\ You [...] \.br\ A medicine to help you relax [facility] Urology Office/Clinic Noteon 09-22-2023 Urology Office/Clinic [...] with voice recognition artificial intelligence software, specifically [employer], [employer] and or [employer]. Substitutions may have occurred due to the inherent limitations of voice recognition and artificial intelligence software. 1. Elevated PSA (R97.20: Elevated prostate specific antigen [PSA]) PSA: 06/22/11 - 0.41 11/09/18 - 0.41 01/10/20 - 0.36 02/03/21 - 0.44 07/13/22 - 0.43 04/04/23 - 6.1 MRI of prostate 07/21/23 [facility] [place] A focal area involving the anterior [...] urinary tract symptoms) MRI of prostate 07/21/23 [facility] [place] Prostate volume 26 cc. Grossly distended [...] BUN/CR, and (more content not included)... Normal [facility] Comment on above: Result Comment: Elec [...] with voice recognition artificial intelligence software, specifically [employer], [employer] and or [employer]. Substitutions may have occurred due to the inherent limitations of voice recognition and artificial intelligence software. ATTESTATION: Documentation services were performed after patient or guardian consented to allow [employer] to record this visit. SAMANTHA [employer] library media specialist and provider reviewed before signing. SAMANTHA: [...] cap(s), Oral (more content not included)... Normal [facility] Comment on above: Result Comment: Elec tronically Signed By: Yfn REYNOLDS, rToy Santamaria\.br\Date and Time Signed: 09/14/23 09:16 EDT\.br\Electronically Co-Signed By: Darling Keen\.br\Date and Time Co-Signed: 08/19/23 18:28 EDT Pathology Noteon 09-14-2023 Pathology Note [id number] [facility] Glucose Glucometer (BldC) [M ass/Vol]Ordered By: Bryant Tao on 09-09-2023 Glucose [Mass/Vol] 199 mg/dL [facility] Comment on above: Random Glucose Refer ence Range is dependent on time and content of last meal. Glucose of more than 200 mg/dL in a nonstressed, ambulatory subject supports the diagnosis of Diabetes Mellitus. Glucose Poct Glucometerson 0 09-09-2023 Glucose [Mass/Vol] 199 mg/dL Normal [facility] Comment on above: Result Comment: [place] om Glucose Reference Range is dependent on time and content of last meal. Glucose of more than 200 mg/dL in a nonstressed, ambulatory subject supports the diagnosis of Diabetes Mellitus. PERFORMED BY: [facility] [address] [place] [address] PATHOLOGIST EXECUTIVE CANDIDATE DEVELOPER ELVI MCNULTY M.D. Performed By: #### G LULS #### Point of Care testing , Glucose [Mass/Vol] 193 mg/dL Normal [facility] Comment on above: Result Comment: [place] om Glucose Reference Range is dependent on time and content of last meal. Glucose of more than 200 mg/dL in a nonstressed, ambulatory subject supports the diagnosis of Diabetes Mellitus. PERFORMED BY: [facility] [address] [place] [address] PATHOLOGIST EXECUTIVE CANDIDATE DEVELOPER ELVI MCNULTY M.D. Performed By: #### G LULS #### Point of Care testing , Kody 09-09-2023 L Specimen: Received: 09/09/23 [facility]: [id number] Spec Type: Surgical Subm Dr: Bryant Tao [...] Sex Location Account Attending Physician Alicja Reyes D 68/M [place] [id number] Bryant Tao MD SPEC NUM: RECD: 09/09/23 STATUS: JUAN TOLENTINO NUM: [id number] JUDITH: 09/09/23- SUBM DR: Bryant Tao MD ENTERED: 09/09/23 [facility] DR: SPEC TYPE: Surgical DEPT: S ORDERED: [...] Specimen: Received: 09/09/23 Status: JUAN Tolentino Num: [id number] Spec Type: Surgical Subm Dr: Bryant Tao [...] , Gross/Micro , PIN Cocktail/3 -------- Patient: Ko Reyesin Bharathi [id number] (Continued) -------- Specimen: Received: 09/09/23 (Continued) Pathological Diagnosis (Continued) Signed (signature on file) Cy Jansen MD 09/13/23 1537 -------- Specimen: Received: 09/09/23 Status: JUAN Toletnino Num: [id number] Spec Type: Surgical Subm Dr: Bryant Tao [...] L4/12, PIN Cocktail/3 -------- Patient: Alicja Reyes [id number] (Continued) -------- Specimen: Received: 09/09/23-134 (Continued) Pathological Diagnosis (Continued) fragments, and the [...] inflammation (more content not included)... Normal [facility] Operative Reporton 4 Operative Report [id number] .00TIFF Normal [facility] Progress Note-Physicianon Progress Note-Physician Patient: ALICJA [...] diabetes mellitus with hypercholesterolemia / SNOMED CT 132936746 / Confirmed linked DM with HLD per OP CDI policy. Tachycardia / SNOMED CT 1850214 / Confirmed Right flank pain / SNOMED CT 034915083 / Confirmed Urinary retention / SNOMED CT 941694530 / Confirmed Diabetic nephropathy associated with type 2 diabetes mellitus / SNOMED CT 0622789861 / Confirmed Recurrent UTI / SNOMED CT 912477379 / Confirmed Major depressive disorder, recurrent, moderate / SNOMED CT 483106998 / Confirmed added per 06/10/2023 query response. Elevated PSA / SNOMED CT 7785781475 / Confirmed Prostate cancer screening / SNOMED CT 814436212 / Confirmed Kidney stone / SNOMED CT 591497047 / Confirmed Incomplete bladder emptying / SNOMED CT 982341179 / Confirmed Hypokalemia / SNOMED CT 92370593 / Confirmed Hypercholesterolemia / SNOMED CT 60129589 / Confirmed Murmur / SNOMED CT 547218125 / Confirmed Gastroesophageal reflux disease without esophagitis / ICD-10-CM K21.9 / Confirmed Fatigue / SNOMED CT 809146450 / Confirmed Primary hypertension / SNOMED CT 88008867 / Confirmed Edema / SNOMED CT 287520727 / Confirmed SOB (shortness of breath) on exertion / SNOMED CT 603928666 / Confirmed Dizziness / SNOMED CT 4302953268 / Confirmed Diastolic dysfunction / SNOMED CT 8579694 / Confirmed Hematuria / SNOMED CT 781805009 / Confirmed BPH with urinary obstruction / SNOMED CT 9003055838 / Confirmed Alcohol abuse / SNOMED CT 78782583 / Confirmed Canceled: UTI symptoms / SNOMED CT 627783427 Canceled: Type 2 diabetes mellitus without complication, without long-term current use of insulin / ICD-10-CM E11.9 Canceled: Tachycardia / SNOMED CT 1675662 Canceled: Hospital discharge follow-up / SNOMED CT 6962038253 Canceled: Obesity / SNOMED CT 9629440299 Canceled: Alcohol abuse, in remission / SNOMED CT 626947708 Canceled: Morbid obesity / SNOMED CT 832097367 added per 05/13/2023 query response. Canceled: Urinary frequency / SNOMED CT 839155060 Canceled: Disorder of prostate / SNOMED CT 07040729 Canceled: Alcohol abuse / SNOMED CT 30828239 Histories Procedure history: back surgery. Comments: 11/15/2012 8:03 Susan Howard RN lower back Arthroscopy right knee ([id number]). Comments: 11/15/2012 8:04 Susan Howard RN right hand and elbow surgery LEFT. Comments: 11/15/2012 8:04 Susan Howard RN left Carpal tunnel release LEFT ([id number]). Hand tendon repaired LEFT ([id number]). Comments: 01/13/2023 11:49 Ruthann Mathur LPN left thumb tendon Spinal fusion x2 (24722515). Social History Social & Psychosocial Habits Alcohol [...] in household: No Comment: former smoker, quit 2006 - 07/25/2023 14:15 - Alicja Castellon Physical Examination Airway: Mallampati classification: II (soft palate, fauces, uvula visible). Respiratory: adequate air exchange. Cardiovascular: Regular rhythm. Plan Citizen Of [place] Society of Anesthesiologists (ASA) physical status classification: Class III. Anesthetic Preoperative Plan: Anesthesia General. [facility] Comment on above: Result Comment: Elec tronically Signed By: Abraham Pitts DO, Juan Nobles\Date and Time Signed: 09/02/23 09:03 EDT CHEMISTRYOrdered By: Lab ROP User on 09-01-2023 Glucose [Mass/Vol] 156 mg/dL High 55 - 99 mg/dL FT C POC Subsection POC Device SN [id number] Invalid Interpretation Code [facility] POC Subsection POC User ID [id number] 1 Invalid Interpretation Code [facility] POC Subsection POC Username JOSE JIMENEZ Invalid Interpretation Code [facility] POC Subsection Capillary Glucose POCon 08-05 Glucose [Mass/Vol] 156 mg/dL High 55-99 [facility] Comment on above: Performed By: #### 2 [id number] ####[facility] [address] [place] [address] Consent for Procedure/Surger yon 09-01-2023 Consent for Procedure/Surgery [id number]# 1.00TIFF [facility] Consent for Treatmenton 08-05 Consent for Treatment [id number]#[address] [facility] H&P Updateon 09-01-2023 H&P Update [id number]# 1.00TIFF [facility] Progress Note-Physicianon Progress Note-Physician Patient: ALICJA [...] patient and his agree with the plan. [facility] Comment on above: Result Comment: Elec tronically Signed By: EMMY REYNOLDS, Bryant Chamorro.oliver\Date and Time Signed: 09/01/23 14:46 EDT Physician Orderon 08-22-2023 Physician Order [id number]#1. 00TIFF Normal [facility] U Microalbon 08-18-2023 Albumin DL <= 20 mg/L (U) [Mass/Vol] 7.8 mg/dL High 0.0-1.9 [facility] Comment on above: Performed By: #### 1 [id number] ####[facility] [address] [place] [address] Physician Orderon 08-17-2023 Physician Order [id number]# 1.00TIFF Normal [facility] U Protein/Creat Ratioon 08-04 Protein/Creatinine (U) [Ratio] 49.30 mg/gm Cr Normal .00-200.00 [facility] Comment on above: Performed By: #### 1 [id number] ####[facility] [address] [place] [address] U Creatinine 46.0 mg/dL Invalid Interpretation Code [facility] Comment on above: Performed By: #### 1 [id number] ####[facility] [address] [place] [place] [address] Ur Total Protein 22.7 mg/dL Invalid Interpretation Code [facility] Comment on above: Performed By: #### 1 [id number] ####[facility] [address] [place] [address] Ambulatory Visit Summaryon 0 08-15-2023 Ambulatory Visit [...] Yfn REYNOLDS, Troy Santamaria Where: [facility] [place] 2023 1:30 PM EDT With: Where: [facility] Tuesday 8:00 AM EST With: Where: [facility] [place] Normal [facility] BMPon 08-15-2023 Anion gap [Moles/Vol] 15 mmol/L Normal 6-16 [facility] Comment on above: Performed By: #### 7 [id number], [id number], [id number] #### [facility] [address] [place] [address] Calcium [Mass/Vol] 8.3 mg/dL Low 8.9-11.1 [facility] Comment on above: Performed By: #### 7 [id number], [id number], [id number] #### [facility] [address] [place] [address] Chloride [Moles/Vol] 101 mmol/L Normal 101-111 [facility] Comment on above: Performed By: #### 7 [id number], [id number], [id number] #### [facility] [address] [place] [address] CO2 [Moles/Vol] 27 mmol/L Normal 21-31 [facility] Comment on above: Performed By: #### 7 [id number], [id number], 6807030 #### [facility] [address] [place] [address] Creatinine [Mass/Vol] 1.4 mg/dL High 0.5-1.3 [facility] Comment on above: Performed By: #### 7 [id number], [id number], [id number] #### [facility] [address] [place] [address] Glucose [Mass/Vol] 258 mg/dL High 55-199 [facility] Comment on above: Performed By: #### 7 [id number], [id number], 6406874 #### [facility] [address] [place] [address] Potassium [Moles/Vol] 3.6 mmol/L Normal 3.5-5.3 [facility] Comment on above: Performed By: #### 7 [id number], 99075338, 7933124 #### [facility] [address] [place] [address] Sodium [Moles/Vol] 139 mmol/L Normal 135-145 [facility] Comment on above: Performed By: #### 7 [id number], 85964227, 0281757 #### [facility] [address] [place] [address] Urea nitrogen [Mass/Vol] 16 mg/dL Normal 5-21 [facility] Comment on above: Performed By: #### 7 [id number], [id number], 8928339 #### [facility] [address] [place] [address] Urea nitrogen/Creatinine [Mass ratio] 11 No Units Normal 10-20 [facility] Comment on above: Performed By: #### 7 [id number], [id number], 7378124 #### [facility] [address] [place] [address] CHEMISTRYOrdered By: SYSTEM SYSTEM on 08-15-2023 Anion [...] (Bld) [Mass fraction] 7.4 % High <=5.9% [facility] ChemAutoSS Family Medicine Office/Clini c Noteon 08-15-2023 Family Medicine Office/Clinic Note HPI Staff Alicja is a 68 year old male presenting for bp recheck and A1C draw Patient is here for follow up on hypertension. How often are you checking your blood pressure? Doesnt check BP at home What are your average readings? N/A, Not checking at home Yearly BMP: 06/28/23 flu: UTD 10/11/23 questions/concerns: patient says Alicja was to talk to dr about ordering him a BP unit to [facility]. needs zofran refilled to [facility] also also needs omeprazole refilled has to [...] Weight Dosing (more content not included)... Normal [facility] Comment on above: Result Comment: Elec tronically Signed By: Ruiz REYNOLDS, Nancy Cordoba.br\Date and Time Signed: 08/15/23 07:18 EDT AdqH2asa 08-15-2023 HbA1c (Bld) [Mass fraction] 7.4 % High <=5.9 [facility] Comment on above: Performed By: #### 7 [id number], [id number], [id number] #### [facility] [address] [place] [address] Patient Educationon 08-15-19 Patient Education Nutrition BMI [...] numbers. This can be done either in [place]uvian ([place] or metric measurements. Note that charts and online BMI calculators are available to help you find your BMI quickly and easily without having to do these calculations yourself. To calculate your BMI in [place]ian ([place].) measurements: 1. Measure your weight in [...] for Disease Control and Prevention: www.cdc.gov ? Citizen Of [place] Heart Association: www.heart.org ? National Heart, Lung, and Blood [place]: www.nhlbi.nih.gov Summary ? Body mass index (BMI) is a number that is calculated from a person's weight and height. ? BMI may help estimate how much of a person's weight is composed of fat. BMI can help identify those who may be at higher risk for certain medical problems. ? BMI can be measured using [place]uvian measurements or metric measurements. ? BMI charts are used to identify whether you are underweight, normal weight, overweight, or obese. This information is not intended to replace advice given to you by your health care provider. Make sure you discuss any questions you have with your health care provider. Document Revised: 02/13/2020 Document Reviewed: 12/21/2019 [employer] Patient Education ? 2022 [employer] Normal [facility] eGFRon 08-15-2023 eGFR 54 mL/min/1.73 m2 Low >=59 [facility] Comment on above: Order Comment: Order added by Discern Expert. Performed By: #### 7 [id number], [id number], [id number] #### [facility] [address] [place] [address] CHEMISTRYOrdered By: SYSTEM SYSTEM on 08-11-2023 Anion [...] 32.1 s Normal 25.1 - 36.5 second(s) [facility] Auto Coag Comment on above: Interpretive Data: [...] the same coagulation reagent and instrumentation as [facility]. Currently there are no coagulation studies available worldwide for children to 14 days, and no normal ranges. Heparin therapeutic range (represented by Anti-Factor Xa activity of 0.2 - 0.4 U/mL) corresponds to PTT of 56.6 - 109.0 sec. INR Coag (PPP) [Relative time] 1.17 {INR} Invalid Interpretation Code [facility] Auto Coag Comment on above: Interpretive Data: I NR results are specifically intended to assess patients stabilized on long-term Anticoagulation therapy suggested INR s Less Intensive Anticoagulation 2.0 3.0 Conventional Range 3.0 4.5 PT Coag (PPP) [Time] 13.1 s High 9.4 - 1 2.5 second(s) [facility] Auto Coag Comment on above: Interpretive Data: [...] the same coagulation reagent and instrumentation as [facility]. Currently there are no coagulation studies available [...] on 07-21-2023 Creatinine [Mass/Vol] 1.2 mg/dL 0.6-1.3 [facility] Comment on above: ER/ESD physician is notified/shown all ISTAT results.Critical values may be confirmed by laboratory testing ifdeemed necessary by ER attending doctor. ISTAT XRay CREon 07-21-2023 Creatinine [Mass/Vol] 1.2 mg/dL Normal 0.6-1.3 [facility] Comment on above: Result Comment: ER/E SD physician is notified/shown all ISTAT results. Critical values may be confirmed by laboratory testing if deemed necessary by ER attending doctor. Performed By: #### I SCRE #### [facility] [address] [place] [address] ISTAT GFR > 60.0 Normal [facility] Comment on above: Result Comment: PERF ORMED BY: [place] [address] PATHOLOGIST EXECUTIVE CANDIDATE DEVELOPER ELVI MCNULTY M.D. Performed By: #### I SCRE #### [facility] [address] [place] [address] MR prostate wo/w conon 07-21 MR prostate wo/w con [facility] Main [place] [address] [place] [address] MRI Report Signed Patient: Alicja Reyes MR#: [id number] : 1955 Acct:[id number] Age/Sex: 68 / M ADM Date: 07/21/23 Loc: Room: Type: [facility] Attending Dr: Ramandeep Porter PA-C Copies [...] Schultz Jr., D.O.07/21/2023 1:08 PM Dictation Location: [place] [address] Transcribed By: [facility] 07/21/23 1308 Dictated By: Ghanshyam Schultz Jr, DO 07/21/23 1304 Signed By: 07/21/23 1308 Normal [facility] No Panel InformationOrdered By: Ramandeep Porter on 07-21-2023 Bedside Estimated GFR (eGFR) > 60.0 [facility] CHEMISTRYOrdered By: SYSTEM SYSTEM on 06-28-2023 Anion [...] S_CA.0 Called to and read back by: ART FRAMING MANAGER ELI at: 06/13/2023 18:59:55 by:ELI LAWSON Chloride [...] S_K:2.7 Called to and read back by: ART FRAMING MANAGER ELI at: 06/13/2023 18:59:55 by:ELI LAWSON Sodium [...] g/dL Normal 3.3 - 5.0 gm/dL [facility] Remisol Albumin/Globulin [Mass ratio] 0.8 {ratio} Low 1.1 - 2.2 FT Remisol ALP [Catalytic activity/Vol] 80 [iU]/d Normal 21 - 98 Int._Unit/L FT Remisol ALT No additional P-5'-P [Catalytic activity/Vol] 19 [iU]/d Normal 6 - 46 Int._Unit/L FT Remisol Anion gap [Moles/Vol] 16 mmol/L Normal 6 - 16 mEq/L [facility] Remisol AST [Catalytic activity/Vol] 19 [iU]/d Normal [...] mg/dL Normal 0.5 - 1.3 mg/d L [facility] Remisol GFR/1.73 sq M.predicted among non-blacks MDRD (S/P/Bld) [Vol rate/Area] 59 mL/min/1.73 m2 Normal >=59mL/min/1.73 m2 [facility] Chem S Comment on above: Interpretive Data: C hronic kidney disease could be indicated at eGFR's of less than 60 mL/min/1.73m2. Kidney failure is indicated at less than 15 mL/min/1.73m2. Globulin (S) [Mass/Vol] 4.1 g/dL High 1.4 - 4.0 gm/dL [facility] Remisol Glucose [Mass/Vol] 337 mg/dL [...] Urea nitrogen/Creatinine [Mass ratio] 12 mg/mg Normal - [facility] Remisol CHEMISTRYOrdered By: Isidro mejia [...] for this result was chemiluminescence using Ephraim Bunkr's Access [employer] PSA reagent. CHEMISTRYOrdered By: SYSTEM [...] Normal 4.0 - 11.0 E9/L FT HemeAutoSS CBC AUTO DIFFon 07-13-2022 BASO # 0.1 103/ul Normal 0.0-0.1 [facility] Comment on above: Performed By: #### C BC #### [facility] [address] [address] [address] Pilo Jansen Basophils/100 WBC (Bld) 1.0 % Normal 0.2-2.0 [facility] Comment on above: Performed By: #### C BC #### [facility] [address] [address] [address] Pilo Jansen EO # 0.1 103/ul Normal 0.0-0.7 [facility] Comment on above: Performed By: #### C BC #### [facility] [address] [address] [address] Pilo Jansen Eosinophils/100 WBC (Bld) 2.1 % Normal 0.9-7.0 [facility] Comment on above: Performed By: #### C BC #### [facility] [address] [place] [address] Dr. Pilo Jansen Erythrocyte distribution width (RBC) [Ratio] 12.0 % Normal 11.0-15.0 [facility] Comment on above: Performed By: #### C BC #### [facility] [address] [place] [address] Dr. Pilo Jansen Hematocrit (Bld) [Volume fraction] 40.7 % Critically low 42.0-54.0 [facility] Comment on above: Performed By: #### C BC #### [facility] [address] [place] [address] Dr. Pilo Jansen Hemoglobin (Bld) [Mass/Vol] 13.4 g/dL Critically low 14.0-18.0 [facility] Comment on above: Performed By: #### C BC #### [facility] [address] [place] [address] Dr. Pilo Jansen IG # 0.02 10e3/ul Normal 0.00-0.03 [facility] Comment on above: Performed By: #### C BC #### [facility] [address] [place] [address] Dr. Pilo Jansen IG % 0.4 % Normal 0.0-0.5 [facility] Comment on above: Performed By: #### C BC #### [facility] [address] [place] [address] Dr. Pilo Jansen LYMPH # 1.4 103/ul Normal 1.2-3.8 [facility] Comment on above: Performed By: #### C BC #### [facility] [address] [place] [address] Dr. Pilo Jansen Lymphocytes/100 WBC (Bld) 26.1 % Normal 20.5-60.0 [facility] Comment on above: Performed By: #### C BC #### [facility] [address] [place] [address] Dr. Pilo Jansen MANUAL DIFF REQ NO Normal [facility] Comment on above: Performed By: #### C BC #### [facility] [address] [place] [address] Dr. Pilo Jansen MCH (RBC) [Entitic mass] 33.2 pg Normal 25.9-34.0 [facility] Comment on above: Performed By: #### C BC #### [facility] [address] [place] [address] Dr. Pilo Jansen MCHC (RBC) [Mass/Vol] 32.9 g/dL Normal 29.9-35.2 [facility] Comment on above: Performed By: #### C BC #### [facility] [address] [place] [address] Dr. Pilo Jansen MCV (RBC) [Entitic vol] 100.7 fL Critically high 80.0-94.0 [facility] Comment on above: Performed By: #### C BC #### [facility] [address] [place] [address] Dr. Pilo Jansen MONO # 0.5 103/ul Normal 0.3-0.8 [facility] Comment on above: Performed By: #### C BC #### [facility] [address] [place] [address] Dr. Pilo Jansen Monocytes/100 WBC (Bld) 9.6 % Normal 1.7-12.0 [facility] Comment on above: Performed By: #### C BC #### [facility] [address] [place] [address] Dr. Pilo Jansen NEUT # 3.2 103/ul Normal 1.4-6.5 [facility] Comment on above: Performed By: #### C BC #### [facility] [address] [place] [address] Dr. Pilo Jansen Neutrophils/100 WBC (Bld) 60.8 % Normal 43.0-75.0 [facility] Comment on above: Performed By: #### C BC #### [facility] [address] [place] [address] Dr. Pilo Jansen Platelet mean volume (Bld) [Entitic vol] 9.3 fL Critically low 9.5-13.5 [facility] Comment on above: Performed By: #### C BC #### [facility] [address] [address] [address] Pilo Jansen PLT 204 103/ul Normal 150-450 [facility] Comment on above: Performed By: #### C BC #### [facility] [address] [place] [address] Dr. Pilo Jansen RBC 4.04 106/ul Critically low 4.70-6.10 [facility] Comment on above: Performed By: #### C BC #### [facility] [address] [place] [address] Dr. Pilo Jansen WBC 5.2 103/ul Normal 4.0-11.0 [facility] Comment on above: Performed By: #### C BC #### [facility] [address] [place] [address] Dr. Pilo Jansen GLYCOHEMOGLOBIN A1Con 2022 ADA RECOMMENDATION SEE BELOW Normal [facility] Comment on above: Result Comment: ADA RECOMMENDED LIMIT 4.0 - 6.0 ADA THERAPEUTIC TARGET < 7.0 ACTION SUGGESTED > 7.0 Performed By: #### A 1C #### [facility] [address] [place] [address] Dr. Pilo Jansen Glucose [Mass/Vol] 189 mg/dL Normal [facility] Comment on above: Performed By: #### A 1C #### [facility] [address] [place] [address] Dr. Pilo Jansen HbA1c (Bld) [Mass fraction] 8.2 % Critically high 4.5-6.2 [facility] Comment on above: Performed By: #### A 1C #### [facility] [facility] [address] [place] [address] Dr. Pilo Jansen LIPID PROFILEon 07-13-2022 CHOL-HDL RATIO NORM SEE BELOW Normal [facility] Comment on above: Result Comment: 3.3 - 4.4 LOW RISK 4.4 - 7.1 AVERAGE RISK 7.1 - 11.0 MODERATE RISK >11.0 HIGH RISK Performed By: #### L IPID, CMP #### [facility] [address] [place] [address] Dr. Pilo Jansen Cholesterol [Mass/Vol] 157 mg/dL Normal <=200 [facility] Comment on above: Performed By: #### L IPID, CMP #### [facility] [address] [address] [address] Pilo Jansen Cholesterol in HDL [Mass/Vol] 53 mg/dL Normal 40-60 [facility] Comment on above: Performed By: #### L IPID, CMP #### [facility] [address] [address] [address] Pilo Jansen Cholesterol in LDL [Mass/Vol] 81.8 mg/dL Normal [facility] Comment on above: Performed By: #### L IPID, CMP #### [facility] [address] [address] [address] Pilo Jansen Cholesterol.total/Cho lesterol in HDL [Mass ratio] 3.0 {ratio} Normal [facility] Comment on above: Performed By: #### L IPID, CMP #### [facility] [address] [place] [address] Dr. Pilo Jansen HDL NORMAL > or = 60 mg/dl - LO W CARDIOVASCULAR RISK <40 mg/dl - HIGH CARDIOVASCULAR RISK Normal [facility] Comment on above: Performed By: #### L IPID, CMP #### [facility] [address] [place] [address] Dr. Pilo Jansen LDL CALC NORMAL SEE BELOW Normal [facility] Comment on above: Result Comment: <100 mg/dl OPTIMAL 100 - 129 mg/dl NEAR OR ABOVE OPTIMAL 130 - 159 mg/dl BORDERLINE HIGH 160 - 189 mg/dl HIGH >190 mg/dl VERY HIGH Performed By: #### L IPID, CMP #### [facility] [address] [address] [address] Pilo Jansen Triglyceride [Mass/Vol] 111 mg/dL Normal <=150 [facility] Comment on above: Performed By: #### L IPID, CMP #### [facility] [address] [place] [address] Dr. Pilo Jansen VLDL CALC 22.2 mg/dL Normal [facility] Comment on above: Performed By: #### L IPID, CMP #### [facility] [address] [address] [address] Pilo Jansen PROF 14(COMP METB)on 023 Albumin [Mass/Vol] 3.9 g/dL Normal 3.4-5.0 [facility] Comment on above: Performed By: #### L IPID, CMP #### [facility] [address] [place] [address] Dr. Pilo Jansen Albumin/Globulin [Mass ratio] 1.1 {ratio} Normal [facility] Comment on above: Performed By: #### L IPID, CMP #### [facility] [address] [address] [address] Pilo Jansen ALP [Catalytic activity/Vol] 81 U/L Normal 46-116 [facility] Comment on above: Performed By: #### L IPID, CMP #### [facility] [address] [place] [address] Dr. Pilo Jansen ALT [Catalytic activity/Vol] 28 U/L Normal 16-63 [facility] Comment on above: Performed By: #### L IPID, CMP #### [facility] [address] [place] [address] Dr. Pilo Jansen Anion gap [Moles/Vol] 13.6 mmol/L Normal [facility] Comment on above: Performed By: #### L IPID, CMP #### [facility] [address] [place] [address] Dr. Pilo Jansen AST [Catalytic activity/Vol] 23 U/L Normal 15-37 [facility] Comment on above: Performed By: #### L IPID, CMP #### [facility] [address] [place] [address] Dr. Pilo Jansen Bilirubin [Mass/Vol] 0.8 mg/dL Normal 0.2-1.0 [facility] Comment on above: Performed By: #### L IPID, CMP #### [facility] [address] [place] [address] Dr. Pilo Jansen Calcium [Mass/Vol] 9.3 mg/dL Normal 8.5-10.1 [facility] Comment on above: Performed By: #### L IPID, CMP #### [facility] [address] [address] [address] Pilo Jansen Chloride [Moles/Vol] 101 mmol/L Normal 98-107 [facility] Comment on above: Performed By: #### L IPID, CMP #### [facility] [address] [address] [address] Pilo Jansen CO2 [Moles/Vol] 29.7 mmol/L Normal 21.0-32.0 [facility] Comment on above: Performed By: #### L IPID, CMP #### [facility] [address] [place] [address] Dr. Pilo Jansen Creatinine [Mass/Vol] 0.86 mg/dL Normal 0.70-1.30 [facility] Comment on above: Performed By: #### L IPID, CMP #### [facility] [address] [place] [address] Dr. Pilo Jansen EGFR-AF ROMANIAN >60 Normal >=60 [facility] Comment on above: Performed By: #### L IPID, CMP #### [facility] [address] [place] [address] Dr. Pilo Jansen EGFR-NON AF ROMANIAN >60 Normal >=60 [facility] Comment on above: Performed By: #### L IPID, CMP #### [facility] [address] [place] [address] Dr. Pilo Jansen Globulin (S) [Mass/Vol] 3.7 g/dL Normal [facility] Comment on above: Performed By: #### L IPID, CMP #### [facility] [address] [place] [address] Dr. Pilo Jansen Glucose [Mass/Vol] 186 mg/dL Critically high 74-106 [facility] Comment on above: Performed By: #### L IPID, CMP #### [facility] [address] [place] [address] Dr. Pilo Jansen Potassium [Moles/Vol] 4.3 mmol/L Normal 3.5-5.1 [facility] Comment on above: Performed By: #### L IPID, CMP #### [facility] [address] [address] [address] Pilo Jansen Protein [Mass/Vol] 7.6 g/dL Normal 6.4-8.2 [facility] Comment on above: Performed By: #### L IPID, CMP #### [facility] [address] [address] [address] Pilo Jansen Sodium [Moles/Vol] 140 mmol/L Normal 136-145 [facility] Comment on above: Performed By: #### L IPID, CMP #### [facility] [address] [address] [address] Pilo Jansen Urea nitrogen [Mass/Vol] 10.0 mg/dL Normal 7.0-18.0 [facility] Comment on above: Performed By: #### L IPID, CMP #### [facility] [address] [address] [address] Pilo Jansen Urea nitrogen/Creatinine [Mass ratio] 11.6 mg/mg Normal [facility] Comment on above: Performed By: #### L IPID, CMP #### [facility] [address] [address] [address] Pilo Jansen Vital Signs Date Time Vital Sign Value Performing Clinician Nicholas mcleod 03-18-2025 08: Body height 175.26 cm Ivaniakierra Parada DO Work Phone: [facility] 03-18-2025 08:040 Body mass index (BMI) [Ratio] 35.7 kg/m2 Ivania Karma DO Work Phone: [facility] 03-18-2025 08: Body weight 109.76 kg Ivania Karma DO Work Phone: [facility] 03-18-2025 08:040 Diastolic blood pressure 82 mm[Hg] Ivania Karma DO Work Phone: [facility] 03-18-2025 08:13040 Heart rate 106 /min Ivania Karma DO Work Phone: [facility] 03-18-2025 08:13-0400 Respiratory rate 20 /min Ivania Karma DO Work Phone: [facility] 03-18-2025 08:13-0400 SaO2% (BldA) [Mass fraction] 99 % Ivania Karma DO Work Phone: [facility] 03-18-2025 08:13-0400 Systolic blood pressure 126 mm[Hg] Ivania Karma DO Work Phone: [facility] 08-14-2024 14:01-0400 Body height 175.3 cm Chloe WORLEY Work Phone: [facility] 08-14-2024 14:01-0400 Body mass index (BMI) [Ratio] 37.36 kg/m2 Chloe WORLEY Work Phone: [facility] 08-14-2024 14:01-0400 Body weight 114.76 kg Chloe Hawthorne PA Work Phone: [facility] 01-13-2024 08:53-0400 Blood Pressure Location Javier Kirnus [facility] 01-13-2024 08:53-0400 Diastolic blood pressure 78 mm[Hg] Javier Kirnus [facility] 01-13-2024 08:53-0400 Heart rate 79 /min Javier Kirnus [facility] 01-13-2024 08:53-0400 Respiratory rate 18 /min Javier Kirnus [facility] 01-13-2024 08:53-0400 SaO2% (BldA) [Mass fraction] 99 % Javier Kirnus [facility] 01-13-2024 08:53-0400 Systolic blood pressure 138 mm[Hg] Javier Kirnus [facility] 01-10-2024 08:19-0400 Blood Pressure Location Bryant TAO [facility] 01-10-2024 08:19-0400 Diastolic blood pressure 74 mm[Hg] Bryant TAO [facility] 01-10-2024 08:19-0400 Heart rate 94 /min Bryant TAO [facility] 01-10-2024 08:19-0400 Systolic blood pressure 138 mm[Hg] Bryant TAO [facility] 12-30-2023 14:00-0400 Hourly Rounding Artemio Marshall [facility] 12-30-2023 14:00-0400 Promise to Return Artemio Marshall [facility] 12-30-2023 13:00-0400 Hourly Rounding Artemio Marshall [facility] 12-30-2023 13:00-0400 Promise to Return Artemio Marshall [facility] 12-30-2023 12:34-0400 Diastolic blood pressure 100 mm[Hg] Artemio Marshall [facility] 12-30-2023 12:34-0400 Systolic blood pressure 161 mm[Hg] Artemio Marshall [facility] 12-30-2023 12:00-0400 Hourly Rounding Artemio Marshall [facility] 12-30-2023 12:00-0400 Promise to Return Artemio Marshall [facility] 12-30-2023 11:50-0400 Heart rate 104 /min Artemio Marshall [facility] 12-30-2023 11:50-0400 SaO2% (BldA) [Mass fraction] 98 % Artemio Olivares [facility] 12-30-2023 11:45-0400 Body temperature 97.7 [degF] Artemio Olivares [facility] 12-30-2023 11:45-0400 Diastolic blood pressure 100 mm[Hg] Atremio Olivares [facility] 12-30-2023 11:45-0400 Mean blood pressure 120 mm[Hg] Artemio Olivares [facility] 12-30-2023 11:45-0400 Systolic blood pressure 161 mm[Hg] Artemio Olivares [facility] 12-30-2023 08:00-0400 Blood Pressure Location Artemio Olivares [facility] 12-30-2023 08:00-0400 Body temperature 98.6 [degF] Artemio Olivares [facility] 12-30-2023 08:00-0400 Diastolic blood pressure 91 mm[Hg] Artemio Olivares [facility] 12-30-2023 08:00-0400 Heart rate 100 /min Artemio Olivares [facility] 12-30-2023 08:00-0400 Systolic blood pressure 173 mm[Hg] Artemio Leroycker [facility] 12-30-2023 04:00-0400 Heart rate 74 /min Artemio Leroycker [facility] 12-30-2023 03:39-0400 Heart rate 75 /min Artemio Leroycker [facility] 12-30-2023 03:39-0400 SaO2% (BldA) [Mass fraction] 97 % Artemio Roer [facility] 12-30-2023 03:39-0400 Body temperature 97.52 [degF] Artemio Roer [facility] 12-30-2023 03:39-0400 Mean blood pressure 101 mm[Hg] Artemio Roer [facility] 12-29-2023 21:20-0400 Body temperature 97.16 [degF] Artemio Roer [facility] 12-29-2023 21:18-0400 Mean blood pressure 121 mm[Hg] Artemio Roer [facility] 12-29-2023 20:00-0400 Mean blood pressure 106 mm[Hg] Artemio Roer [facility] 12-29-2023 16:57-0400 Blood Pressure Location Artemio Roer [facility] 12-29-2023 16:57-0400 Body temperature 98.42 [degF] Artemio Roer [facility] 12-29-2023 16:00-0400 Mean blood pressure 118 mm[Hg] Artemio Roer [facility] 12-29-2023 16:00-0400 Respiratory rate 20 /min Artemio Leroycker [facility] 12-29-2023 15:00-0400 Mean blood pressure 138 mm[Hg] Artemio Leroycker [facility] 12-29-2023 15:00-0400 Respiratory rate 14 /min Artemio Roer [facility] 12-29-2023 14:07-0400 Respiratory rate 23 /min Artemio Olivares [facility] 12-29-2023 13:50-0400 Body temperature 97.88 [degF] Artemio Olivares [facility] 12-29-2023 13:50-0400 Respiratory rate 18 /min Artemio Olivares [facility] 10-19-2023 08:26-0400 Diastolic blood pressure 88 mm[Hg] Jacinto Ramirez [facility] 10-19-2023 08:26-0400 Mean blood pressure 111 mm[Hg] Jacinto Ramirez [facility] 10-19-2023 08:26-0400 Systolic blood pressure 158 mm[Hg] Jacinto Ramirez [facility] 10-19-2023 08:12-0400 Blood Pressure Location Jacinto Ramirez [facility] 10-19-2023 08:12-0400 Diastolic blood pressure 84 mm[Hg] Jacinto Ramirez [facility] 10-19-2023 08:12-0400 Heart rate 94 /min Jacinto Ramirez [facility] 10-19-2023 08:12-0400 SaO2% (BldA) [Mass fraction] 98 % Jacinto Ramirez [facility] 10-19-2023 08:12-0400 Systolic blood pressure 168 mm[Hg] Jacinto Ramirez [facility] 09-22-2023 12:35-0400 Blood Pressure Location Bryant TAO [facility] 09-22-2023 12:35-0400 Body temperature 97.16 [degF] Bryant TAO [facility] 09-22-2023 12:35-0400 Diastolic blood pressure 84 mm[Hg] Bryant TAO [facility] 09-22-2023 12:35-0400 Heart rate 84 /min Bryant TAO [facility] 09-22-2023 12:35-0400 Systolic blood pressure 136 mm[Hg] Bryant TAO [facility] 09-09-2023 14:25-0400 Diastolic blood pressure 79 mm[Hg] MD Nancy Grace Work Phone: [facility] 09-09-2023 14:25-0400 Heart rate 85 /min MD Nancy Grace Work Phone: [facility] 09-09-2023 14:25-0400 Respiratory rate 16 /min MD Nancy Grace Work Phone: [facility] 09-09-2023 14:25-0400 SaO2% (BldA) [Mass fraction] 99 % MD Nancy Grace Work Phone: [facility] 09-09-2023 14:25-0400 Systolic blood pressure 131 mm[Hg] MD Nancy Grace Work Phone: [facility] 09-09-2023 13:40-0400 Inhaled oxygen flow rate 8 L/min MD Nancy Grace Work Phone: [facility] 09-09-2023 12:40-0400 Body height 175.26 cm MD Nancy Grace Work Phone: [facility] 09-09-2023 12:40-0400 Body mass index (BMI) [Ratio] 34.1 kg/m2 MD Nancy Grace Work Phone: [facility] 09-09-2023 12:40-0400 Body weight 104.77 kg MD Nancy Grace Work Phone: [facility] 09-09-2023 11:49-0400 Body temperature 98.8 [degF] MD Nancy Grace Work Phone: [facility] 09-01-2023 11:42-0400 Diastolic blood pressure 98 mm[Hg] Bryant COOK [facility] 09-01-2023 11:42-0400 Systolic blood pressure 170 mm[Hg] Bryant COOK [facility] 09-01-2023 11:40-0400 Diastolic blood pressure 99 mm[Hg] Bryant COOK [facility] 09-01-2023 11:40-0400 Systolic blood pressure 190 mm[Hg] Bryant COOK [facility] 09-01-2023 11:08-0400 Diastolic blood pressure 102 mm[Hg] Bryant COOK [facility] 09-01-2023 11:08-0400 Systolic blood pressure 178 mm[Hg] Bryant COOK [facility] 09-01-2023 10:50-0400 Heart rate 96 /min Bryant COOK [facility] 09-01-2023 10:23-0400 Blood Pressure Location Bryant COOK [facility] 09-01-2023 10:23-0400 Heart rate 108 /min Bryant COOK [facility] 09-01-2023 10:23-0400 Mean blood pressure 147 mm[Hg] Bryant COOK [facility] 09-01-2023 10:22-0400 Heart rate 108 /min Bryant COOK [facility] 09-01-2023 10:22-0400 SaO2% (BldA) [Mass fraction] 98 % Bryant COOK [facility] 09-01-2023 10:22-0400 Blood Pressure Location Bryant TAO [facility] 09-01-2023 10:22-0400 Mean blood pressure 150 mm[Hg] Bryant TAO [facility] 09-01-2023 10:21-0400 Respiratory rate 20 /min Bryant TAO [facility] 09-01-2023 10:21-0400 Body temperature 97.7 [degF] Bryant TAO [facility] 08-19-2023 11:59-0400 Diastolic blood pressure 98 mm[Hg] Troy Philipofferson [facility] 08-19-2023 11:59-0400 Mean blood pressure 125 mm[Hg] Troy Christofferson [facility] 08-19-2023 11:59-0400 Systolic blood pressure 180 mm[Hg] Troy Christofferson [facility] 08-19-2023 11:52-0400 Diastolic blood pressure 100 mm[Hg] Troy Christofferson [facility] 08-19-2023 11:52-0400 Heart rate 106 /min Troy Christofferson [facility] 08-19-2023 11:52-0400 SaO2% (BldA) [Mass fraction] 97 % Troy Christofferson [facility] 08-19-2023 11:52-0400 Systolic blood pressure 170 mm[Hg] Troy Christofferson [facility] 08-11-2023 09:41-0500 Diastolic blood pressure 96 mm[Hg] Bryant TAO [facility] 08-11-2023 09:41-0500 Heart rate 84 /min Bryant TAO [facility] 08-11-2023 09:41-0500 Mean blood pressure 126 mm[Hg] Bryant TAO [facility] 08-11-2023 09:41-0500 Systolic blood pressure 186 mm[Hg] Bryant TAO [facility] 08-11-2023 09:41-0500 Heart rate 88 /min Bryant TAO [facility] 08-11-2023 09:41-0500 SaO2% (BldA) [Mass fraction] 99 % Bryant TAO [facility] 08-11-2023 09:40-0500 Diastolic blood pressure 95 mm[Hg] Bryant TAO [facility] 08-11-2023 09:40-0500 Mean blood pressure 127 mm[Hg] Bryant TAO [facility] 08-11-2023 09:40-0500 Systolic blood pressure 191 mm[Hg] Bryant TAO [facility] 08-11-2023 09:40-0500 Respiratory rate 20 /min Bryant TAO [facility] 07-27-2023 11:03-0500 Blood Pressure Location RAMANDEEP MINDI [facility] 07-27-2023 11:03-0500 Diastolic blood pressure 76 mm[Hg] RAMANDEEP JUNIORRY [facility] 07-27-2023 11:03-0500 Heart rate 84 /min RAMANDEEP PORTER [facility] 07-27-2023 11:03-0500 Systolic blood pressure 132 mm[Hg] RAMANDEEP PORTER [facility] [place] 07-21-2023 10:06-0500 Body height 175.26 cm MD Nancy Grace Work Phone: [facility] 07-21-2023 10:06-0500 Body weight 107.04 kg MD Nancy Grace Work Phone: [facility] 07-18-2023 06:45-0500 Body height 175.26 cm MD Nancy Grace Work Phone: [facility] 07-18-2023 06:45-0500 Body weight 107.04 kg MD Nancy Grace Work Phone: [facility] 07-15-2023 13:58-0500 Diastolic blood pressure 88 mm[Hg] Troy Coulter [facility] 07-15-2023 13:58-0500 Heart rate 99 /min Troy Coulter [facility] 07-15-2023 13:58-0500 SaO2% (BldA) [Mass fraction] 98 % Troy Coulter [facility] 07-15-2023 13:58-0500 Systolic blood pressure 142 mm[Hg] Troy Coulter [facility] 05-16-2023 07:57-0500 Diastolic blood pressure 90 mm[Hg] Nancy Grace [facility] 05-16-2023 07:57-0500 Mean blood pressure 111 mm[Hg] Nancy Grace [facility] 05-16-2023 07:57-0500 Systolic blood pressure 152 mm[Hg] Nancy Grace [facility] Encounters Encounter Date Encounter Type Care Provider Facility Start: 07-09-2025 ambulatory Nancy Grace Facility :[facility] Start: 04-09-2025 ambulatory ANTHROPOLOGIST MARINO A SHIRA Fa cility:[facility] Start: 03-27-2025 ambulatory Bryant TAO Facility :[facility] Start: 03-19-2025 ambulatory Bryant TAO Facility :[facility] [place] Start: 03-18-2025 End: 03-18-2025 ambulatory Ivania Parada DO Work Phone: [facility] Work Phone: Start: 03-18-2025 End: 03-18-2025 Patient encounter procedure Ivaniakierra Patelp DO -[facility] Work Phone: Start: 03-04-2025 End: 03-04-2025 ambulatory MARINO A SHIRA Facility:[facility] Start: 01-29-2025 End: 01-29-2025 ambulatory MARINO A SHIRA Facility:[facility] Start: 01-29-2025 End: 01-29-2025 ambulatory MARINO A SHIRA Facility:[facility] [place] Start: 01-08-2025 End: 01-08-2025 ambulatory ANTHROPOLOGIST MARINO A SHIRA Facility:[facility] Start: 11-14-2024 End: 11-14-2024 Lab Drop off MARINO A SHIRA [facility] Start: 11-14-2024 End: 11-14-2024 ambulatory MARINO A SHIRA Facility:[facility] Start: 10-08-2024 ambulatory MARINO SHIRA Facility : [facility] Start: 10-08-2024 End: 10-08-2024 Lab Drop off Nancy Grace [facility] Start: 10-08-2024 End: 10-08-2024 ambulatory MD Nancy Grace Facility:[facility] Start: 09-25-2024 End: 09-25-2024 Bamboo flowsheet Chloe WORLEY Work Phone: [facility] Start: 09-25-2024 End: 09-25-2024 Bamboo flowsheet Chloe J Christoph PA Work Phone: [facility] Start: 09-25-2024 End: 09-25-2024 Postop follow up visit related to original px Chloe Bird Christoph PA Work Phone: [facility] Comment on above: S/P carpal tunnel re lease (Primary Dx) Start: 09-25-2024 End: 09-25-2024 ambulatory CHLOE J CHRISTOPH Not Available Start: 09-24-2024 End: 09-24-2024 Lab Drop off RAMANDEEP PORTER [facility] Start: 09-24-2024 End: 09-24-2024 ambulatory Bryant Jaspreet TAO Facility:[facility] Start: 09-11-2024 End: 09-11-2024 Bamboo flowsheet Chloe Pelon Christoph PA Work Phone: [facility] Start: 09-11-2024 End: 09-11-2024 Bamboo flowsheet Chloe J Christoph PA Work Phone: [facility] Start: 09-11-2024 End: 09-11-2024 Postop follow up visit related to original px Chloe J Christoph PA Work Phone: [facility] Comment on above: S/P carpal tunnel re lease (Primary Dx) Start: 09-11-2024 End: 09-11-2024 ambulatory CHLOE Pelon CHRISTOPH Not Available Start: 09-03-2024 End: 09-03-2024 ambulatory RAMANDEEP PORTER Facility:[facility] Start: 08-28-2024 End: 09-03-2024 Telephone encounter Jr. Lauren Dillon DO Work Phone: [facility] Start: 08-22-2024 End: 08-23-2024 Lab Drop off Nancy Grace [facility] Start: 08-22-2024 End: 08-23-2024 ambulatory Nancy Grace Facility:[facility] Start: 08-21-2024 End: 08-21-2024 ambulatory Estefania Reddy Facility:[facility] [place] Start: 08-17-2024 End: 08-17-2024 Lab Drop off Nancy Grace [facility] Start: 08-17-2024 End: 08-17-2024 ambulatory MD Nancy Grace Facility:[facility] [place] Start: 08-14-2024 End: 08-14-2024 ambulatory CHLOE HAWTHORNE [facility] Start: 08-14-2024 Encounter for other preprocedural examination CHLOE HAWTHORNE [facility] Start: 08-14-2024 End: 08-14-2024 Patient encounter procedure Chloe WORLEY Work Phone: [facility] Comment on above: Preop examination Start: 08-14-2024 End: 08-14-2024 Preprocedural examination done Chloe WORLEY Work Phone: [facility] Start: 08-14-2024 End: 08-14-2024 Bamboo flowsheet Chloe Hawthorne PA Work Phone: [facility] Start: 08-14-2024 End: 08-14-2024 Bamboo flowsheet Chloe Hawthorne PA Work Phone: [facility] Start: 08-14-2024 End: 08-14-2024 External Result Encounter Chloe Hawthorne PA Work Phone: [facility] External Department Unsolicited Start: 08-14-2024 End: 08-14-2024 ambulatory CHLEO HAWTHORNE Not Available Start: 08-09-2024 End: 08-09-2024 Orders Only Chloe Hawthorne PA Work Phone: [facility] Comment on above: Encounter for other preprocedural examination Start: 08-09-2024 End: 08-09-2024 Patient encounter status Chloe Hawthorne PA Work Phone: [facility] Start: 07-24-2024 End: 07-24-2024 ambulatory Estefania X Maureen Facility: [place] Start: 07-24-2024 End: 07-24-2024 Patient encounter procedure Estefania Reddy [facility] [place] Start: 07-18-2024 End: 07-18-2024 Bamboo flowsheet Jr. Lauren Dillon DO Work Phone: [facility] Start: 07-18-2024 End: 07-18-2024 Bamboo flowsheet Jr. Lauren Dawkins Stepkelsie DO Work Phone: [facility] Start: 07-18-2024 End: 07-18-2024 Office outpatient visit 25 minutes Jr. Lauren Dillon DO Work Phone: [facility] Comment on above: Carpal tunnel syndro me of right wrist (Primary Dx); Pain of right hand Start: 07-18-2024 End: 07-18-2024 ambulatory LAUREN LECHUGA Not Available Start: 07-16-2024 End: 07-16-2024 Lab Drop off Nancy Grace [facility] Start: 07-16-2024 End: 07-16-2024 ambulatory Nancy Grace Facility:[facility] Start: 07-09-2024 End: 07-09-2024 Lab Drop off Nancy Grace [facility] Start: 07-09-2024 End: 07-09-2024 ambulatory Nancy Grace Facility:[facility] Start: 05-22-2024 End: 05-22-2024 Bamboo flowsheet Carlos Howe DO Work Phone: [facility] Start: 05-22-2024 End: 05-22-2024 Bamboo flowsheet Christopher Shyam DO Work Phone: [facility] Start: 05-22-2024 End: 05-22-2024 Patient encounter procedure Philipaparna Shyam DO Work Phone: [facility] Comment on above: Carpal tunnel syndro me on both sides (Primary Dx); Polyneuropathy Start: 05-22-2024 End: 05-22-2024 ambulatory ELIFSTEVE SHYAM Not Available Start: 05-18-2024 End: 05-18-2024 ambulatory ANTHROPOLOGIST MARINO Butler SHIRA Facility:[facility] Start: 02-22-2024 End: 02-22-2024 ambulatory Ramos Akkina Facility:[facility] Start: 02-22-2024 End: 02-22-2024 Patient encounter procedure Ramos Akkina [facility] Start: 01-30-2024 End: 01-30-2024 Lab Drop off Nancy Grace [facility] Start: 01-30-2024 End: 01-30-2024 ambulatory Nancy Grace Facility:[facility] Start: 01-13-2024 End: 01-13-2024 ambulatory XXXX NONE Facility:[facility] Start: 01-13-2024 End: 01-13-2024 Patient encounter procedure Javier Goins [facility] Start: 01-11-2024 End: 01-11-2024 Lab Drop off Nancy Grace [facility] Start: 01-11-2024 End: 01-11-2024 ambulatory Nancy Grace Facility:[facility] Start: 01-10-2024 End: 01-10-2024 ambulatory Bryant TAO Facility: [place] Start: 01-10-2024 End: 01-10-2024 Patient encounter procedure Bryant TAO [facility] [place] Start: 01-05-2024 End: 01-05-2024 ambulatory MD Nancy Grace Facility:[facility] Start: 01-02-2024 End: 02-02-2024 ambulatory Nancy Grace Facility:[id number] Start: 12-29-2023 End: 12-30-2023 Evaluation and management of inpatient Ramos Euceda Facility:[facility] Start: 12-29-2023 Emergency department patient visit Ronny Kimi Cartagena Facility:[facility] Start: 12-29-2023 End: 12-30-2023 Evaluation and management of inpatient Artemio ReddMalgorzata Olivares [facility] Start: 12-27-2023 End: 12-27-2023 Lab Drop off Nancy Grace [facility] Start: 12-27-2023 End: 12-27-2023 ambulatory Nancy Grace Facility:[facility] Start: 12-22-2023 End: 12-22-2023 Lab Drop off MARINO KEARNS [facility] Start: 12-22-2023 End: 12-22-2023 ambulatory MARINO KEARNS Facility:[facility] Start: 11-28-2023 End: 11-28-2023 ambulatory Bryant TAO Facility:[facility] Start: 11-28-2023 End: 11-28-2023 Patient encounter procedure Bryant TAO [facility] Start: 10-19-2023 End: 10-19-2023 ambulatory Jacinto Ramirez Facility:[facility] Start: 10-19-2023 End: 10-19-2023 Patient encounter procedure Jacinto Ramirez [facility] Start: 09-22-2023 End: 09-22-2023 ambulatory Bryant TAO Facility:[facility] [place] Start: 09-22-2023 End: 09-22-2023 Patient encounter procedure Bryant TAO [facility] [place] Start: 09-09-2023 End: 09-09-2023 ambulatory Nancy Grace Facility:[facility] Start: 09-09-2023 End: 09-09-2023 Admission to same day surgery center MD Nancy rGace Work Phone: [facility] [place] Start: 09-09-2023 End: 09-09-2023 ambulatory MD Nancy Grace Work Phone: [facility] Work Phone: Start: 09-09-2023 End: 09-09-2023 ambulatory Bryant TAO Facility:CD:[id number] Start: 09-01-2023 End: 09-01-2023 Admission to same day surgery center Bryant TAO [facility] Start: 09-01-2023 End: 09-01-2023 ambulatory Bryant TAO Facility:[facility] Start: 08-19-2023 End: 08-19-2023 ambulatory XXXX NONE Facility:[facility] Start: 08-19-2023 End: 08-19-2023 Patient encounter procedure Troy Coulter [facility] Start: 08-15-2023 End: 08-15-2023 Lab Drop off Nancy Grace [facility] Start: 08-15-2023 End: 08-15-2023 ambulatory Nancy Graec Facility:[facility] Start: 08-11-2023 End: 08-11-2023 Patient encounter procedure Bryant TAO [facility] Start: 08-05-2023 End: 08-05-2023 Patient encounter procedure Troy Coulter [facility] Start: 08-02-2023 End: 08-02-2023 Patient encounter procedure Nancy Grace [facility] Start: 07-27-2023 End: 07-27-2023 Patient encounter procedure RAMANDEEP PORTER [facility] [place] Start: 07-21-2023 End: 07-21-2023 ambulatory Ramandeep Porter Facility:[facility] Start: 07-21-2023 End: 07-21-2023 ambulatory MD Nancy Grace Work Phone: [facility] Work Phone: Start: 07-21-2023 End: 07-21-2023 Patient encounter procedure MD Nancy Grace Work Phone: [facility] [place] Work Phone: Start: 07-18-2023 End: 07-18-2023 ambulatory MD Nancy Grace Work Phone: [facility] Work Phone: Start: 07-18-2023 End: 07-18-2023 Patient encounter procedure MD Nancy Grace Work Phone: [facility] [place] Work Phone: Start: 07-15-2023 End: 07-15-2023 Patient encounter procedure Troy Coulter [facility] Start: 06-28-2023 End: 06-28-2023 Lab Drop off Nancy Grace [facility] Start: 06-23-2023 End: 06-23-2023 Patient encounter procedure Manolo ALLEN [facility] Start: 06-22-2023 End: 06-22-2023 Patient encounter procedure RAMANDEEP Peter MINDI [facility] Start: 06-21-2023 End: 06-21-2023 Patient encounter procedure RAMANDEEP E MINDI [facility] Start: 06-13-2023 End: 06-13-2023 Lab Drop off Nancy Grace [facility] Start: 05-27-2023 End: 05-27-2023 Lab Drop off Christy L Ese [facility] Start: 05-26-2023 End: 05-26-2023 Lab Drop off Nancy Grace [facility] Start: 05-18-2023 End: 06-10-2023 Pre-admission assessment Nancy Grace [facility] Start: 05-16-2023 End: 05-16-2023 Lab Drop off Nancy Grace [facility] Start: 04-04-2023 End: 04-04-2023 Lab Drop off Christy L Ese [facility] Start: 04-04-2023 End: 04-04-2023 Lab Drop off Christy Mulligan [facility] Start: 01-20-2023 End: 01-20-2023 Lab Drop off Nancy Grace [facility] Start: 07-13-2022 End: 07-14-[address] TYRESE MCGRATH Facility:[facility] Procedures Date Procedure Procedure Detail Performing Clinician Start: 08-30-2024 Decompression of med valdo nerve MARINO KEARNS Start: 08-30-2024 Decompression of med valdo nerve Nancy Grace Start: 08-14-2024 Basic metabolic pane l calcium [...] above: Performed By: #### P SAD #### [facility] [address] [place] [address] Dr. Pilo Jansen Arthroscopy Nancy Grace Comment on above: right Arthroscopy Bryant TAO Comment on above: right back surgery 2 Nancy Grace Comment on above: lower back Colonoscopy Javier Goins Comment on above: years ago-- Decompression of med valdo nerve Nancy Grace Decompression of med valdo nerve Bryant TAO hand and elbow surgery 3 Marcin Grace Comment on above: left hand and elbow surge ry LEFT 3 Bryant TAO Comment on above: left hand and elbow surge ry LEFT 4 Javier Goins Comment on above: left Hand tendon repaired Nancy Grace Comment on above: left thumb tendon Hand tendon repaired Bryant TAO Comment on above: left thumb tendon History of decompres cash of median nerve S/P carpal tunnel release Chloe WORLEY Work Phone: History of decompres cash of median nerve S/P carpal tunnel release Chloe WORLEY Work Phone: Spinal arthrodesis RAMANDEEP PORTER Spinal arthrodesis Bryant Juancho JOHNSON Plan of Treatment Date Care Activity Detail Author Start: 03-18-2025 Patient referral [facility] Work Phone: Start: 09-25-2024 End: 09-25-2024 Patient encounter procedure [facility] Comment on above: S/P carpal tunnel re lease (Primary Dx) Start: 09-11-2024 End: 09-11-2024 Patient encounter procedure [facility] Comment on above: S/P carpal tunnel re lease (Primary Dx) Start: 08-14-2024 End: 08-14-2024 Patient encounter procedure [facility] Comment on above: Preop examination Start: 08-09-2024 End: 08-09-2025 Basic metabolic 1998 panel - Serum or Plasma Basic metabolic panel Lab Routine Preop examination Expected: 08/09/2024 (Approximate), Expires: 08/09/2025 [facility] Work Phone: Comment on above: Expected: 08/09/2024 (Approximate), Expires: 08/09/2025 Start: 08-09-2024 End: 08-09-2025 Basic metabolic 2000 panel - Serum or Plasma Basic Metabolic Panel Lab Routine Encounter for other preprocedural examination Expected: 08/09/2024, Expires: 08/09/2025 [facility] Work Phone: Comment on above: Expected: 08/09/2024 , Expires: 08/09/2025 Start: 07-18-2024 End: 07-18-2024 Patient encounter procedure 07/18/2024 8:30 AM EST Office Visit [facility] [address] [place] [address] Jr. Lauren Dillon, DO [address] [facility] [address] [place] [address] Arrived [facility] Comment on above: Arrived Start: 05-22-2024 End: 05-22-2024 Patient encounter procedure 05/22/2024 8:30 AM EST Procedure Visit [facility] [address] [place] [id number] Carlos Howe, [address] [place] [id number] Arrived [facility] Comment on above: Arrived Start: 02-14-2024 Screening for malign ant neoplasm of colon [facility] Start: 02-05-2024 Influenza vaccination Influenza Vacc ine [facility] Start: 09-09-2023 End: 09-09-2023 [facility] Start: 03-09-2021 Pneumococcal Vaccine : 65+ Years (2 of 2 - PPSV23 or PCV20) Pneumococcal Vaccine: 65+ Years (2 of 2 - PPSV23 or PCV20) [facility] Start: 03-09-2021 Pneumococcal Vaccine : 65+ Years (2 of 2 - PPSV23) Pneumococcal Vaccine: 65+ Years (2 of 2 - PPSV23) [facility] Start: 2019 Fall Risk Screening Fall Risk Screen [facility] Start: 2004 Administration of varicella zoster vaccine Zoster (Shingles) Vaccine (1 of 2) [facility] Start: 1973 DTaP,Tdap and Td Vaccines (1 - Tdap) DTaP,Tdap and Td Vaccines (1 - Tdap) [facility] Start: 1972 Adult BMI Screening Adult BMI Screen ing [facility] Start: 1966 Depression Screening Depression Scre ening [facility] Start: 1966 Tobacco Screening Tobacco Screening [facility] Start: 1954 Screening for malign ant neoplasm of colon [facility] metabo lic 2000 panel - Serum or Plasma [facility] Patient referral [facility] Work Phone: [facility] Immunizations Immunization Date Immunization Notes Care Provider Fa cility 03-20-2024 influenza virus vaccine, unspecified formulation Nancy Grace [facility] 03-20-2024 SARS-CoV-2 mRNA (tozinameran 5y-11y) vaccine Nancy Grace [facility] Comment on above: Result Comment: pfiz er 03-16-2023 influenza virus vaccine, unspecified formulation Nancy Ruiz [facility] 04-05-2022 influenza virus vaccine, unspecified formulation Nancy Grace [facility] 04-05-2022 SARS-CoV-2 (COVID-19 ) [id number] Nancy Ruiz [facility] 03-01-2021 influenza virus vaccine, unspecified formulation Nancy Grace [facility] 03-01-2021 SARS-CoV-2 (COVID-19 ) mRNA BNT-162b2 vax Nancyhalima [facility] Comment on above: Result Comment: 2022: [id number] 08-08-2020 SARS-CoV-2 (COVID-19 ) mRNA BNT-162b2 kristy [facility] 07-18-2020 SARS-CoV-2 (COVID-19 ) mRNA BNT-162b2 kristy [facility] 03-09-2020 influenza virus vaccine, unspecified formulation Nancy Grace [facility] 03-09-2020 pneumococcal conjuga te vaccine, 13 valent Nancy Grace [facility] NEGATED: Highlighted row has not occurred!02-14-2023 influenza virus vaccine, unspecified formulation Christy Ese [facility] Payers Date Payer Category Payer Unknown [id number] 2023 Self-pay [id number] 2022 Private Health Insurance [id number]. [id number] 2018 Medicare [id number] 1.13.693.2. [id number] 2018 Medicare HMO [facility] [place] [id number]. [id number] 1959 Medicare [id number] 1959 Unknown [id number] 1954 Unknown [id number] 2.16.840.1.216933.3.579.2. 593 1954 Unknown [id number] 2.16.840.1.141260.3.579.2. 727 1954 Unknown [id number] 2.16.840.1.932871.3.579.2. 72 1954 Unknown [id number] 2.16.840.1.365364.3.579.2. 72 1954 Unknown [id number] 2.16.840.1.788926.3.579.2. 1954 Unknown [id number] 2.16.840.1.575937.3.579.2. 72 1954 Unknown [id number] 2.16.840.1.738274.3.579.2. 72 1954 Unknown [id number] 2.16.840.1.538178.3.579.2. 1954 Unknown [id number] 2.16.840.1.921327.3.579.2. 72 1954 Unknown [id number] 2.16.840.1.289590.3.579.2. 72 1954 Unknown [id number] 2.16.840.1.178664.3.579.2. 72 1954 Unknown [id number] 2.16.840.1.531053.3.579.2. 72 1954 Unknown [id number] 2.16.840.1.870046.3.579.2. 1954 Unknown [id number] 2.16.840.1.592842.3.579.2. 72 1954 Unknown [id number] 2.16.840.1.592788.3.579.2. 1954 Unknown [id number] 2.16.840.1.101464.3.579.2. 1954 Unknown [id number] 2.16.840.1.646602.3.579.2. 1954 Unknown [id number] 2.16.840.1.183033.3.579.2. 1954 Unknown [id number] 2.16.840.1.491903.3.579.2. 1954 Unknown [id number] 2.16.840.1.342823.3.579.2 1954 Unknown [id number] 2.16.840.1.114606.3.579.2 1954 Unknown [id number] 2.16.840.1.115797.3.579.2 1954 Unknown [id number] 2.16.840.1.860492.3.579.2 1954 Unknown [id number] 2.16.840.1.759051.3.579.2 1954 Unknown [id number] 2.16.840.1.027592.3.579.2. 1954 Unknown [id number] 2.16.840.1.907408.3.579.2 1954 Unknown [id number] 2.16.840.1.720302.3.579.2. 1954 Unknown [id number] 2.16.840.1.170467.3.579.2 1954 Unknown [id number] 2.16.840.1.606864.3.579.2. 1954 Unknown [id number] 2.16.840.1.061959.3.579.2. 1286 1954 Unknown [id number] 2.16.840.1.633890.3.579.2. 727 1954 Unknown [id number] 2.16.840.1.124757.3.579.2. 727 1954 Unknown [id number] 2.16.840.1.161565.3.579.2. 72 1954 Unknown [id number] 2.16.840.1.963726.3.579.2. 72 1954 Unknown [id number] 2.16.840.1.330979.3.579.2. 1954 Unknown [id number] 2.16.840.1.395715.3.579.2. 72 1954 Unknown [id number] 2.16.840.1.010760.3.579.2. 1954 Unknown [id number] 2.16.840.1.823693.3.579.2. 727 1954 Unknown [id number] 2.16.840.1.414700.3.579.2. 125 1954 Unknown [id number] 2.16.840.1.841831.3.579.2. 1259 1954 Unknown [id number] 2.16.840.1.553122.3.579.2. 125 1954 Unknown [id number] 2.16.840.1.199159.3.579.2. 125 1954 Unknown [id number] 2.16.840.1.918378.3.579.2. 125 1954 Unknown [id number] 2.16.840.1.826058.3.579.2. 727 1954 Unknown [id number] 2.16.840.1.875258.3.579.2. 72 1954 Unknown [id number] 2.16.840.1.117232.3.579.2. 727 1954 Unknown [id number] 2.16.840.1.595975.3.579.2. 72 1954 Unknown [id number] 2.16.840.1.575804.3.579.2. 72 1954 Unknown [id number] 2.16.840.1.833053.3.579.2. 1954 Unknown [id number] 2.16.840.1.907070.3.579.2. 1954 Unknown [id number] 2.16.840.1.356498.3.579.2. 1954 Unknown [id number] 2.16.840.1.962759.3.579.2. 1954 Unknown [id number] 2.16.840.1.523430.3.579.2. 1954 Unknown [id number] 2.16.840.1.821835.3.579.2. 1954 Unknown [id number] 2.16.840.1.707652.3.579.2. 1954 Unknown [id number] 2.16.840.1.404488.3.579.2. 1954 Unknown [id number] 2.16.840.1.008362.3.579.2. 1954 Unknown [id number] 2.16.840.1.455380.3.579.2. 1954 Unknown [id number] 2.16.840.1.140780.3.579.2. 1954 Unknown [id number] 2.16.840.1.973298.3.579.2. 72 1954 Unknown [id number] 2.16.840.1.632205.3.579.2. 727 1954 Unknown [id number] 2.16.840.1.692033.3.579.2. 727 1954 Unknown [id number] 2.16.840.1.670291.3.579.2. 727 1954 Unknown [id number] 2.16.840.1.524646.3.579.2. 727 1954 Unknown [id number] 2.16.840.1.437956.3.579.2. 727 1954 Unknown [id number] 2.16.840.1.315406.3.579.2. 727 Unknown Regular Insurance [id number] Unknown [id number] 2.16.840.1.896508.3.579.2. 531 Unknown [id number] 2.16.840.1.794088.3.579.2. 531 Social History Date Type Detail Facility Start: 01-20-2023 End: 03-18-2025 Tobacco smoking status Ex-smoker (finding) [facility] Comment on above: former smoker, quit 2005 uses chewing tobacco former smoker. stopp ed at age 50. Tobacco smoking status Smokeless tobacco user within last 30 days [facility] Comment on above: former smoker, quit 2006 uses chewing tobacco former smoker. stopp ed at age 50. Start: 11-15-2018 End: 09-11-2024 Sex Assigned At Male [facility] Start: 1955 Sex Assigned At Male [facility] Tobacco smoking stat NHIS Tobacco smoking consumption unknown [facility] Start: 1955 Sex assigned at Not on file [facility] Start: 11-15-2018 End: 09-11-2024 History of Social function [facility] Start: 06-28-2012 End: 01-09-2015 Sex Male (finding) [facility] History of tobacco use Current smoker [facility] History of tobacco use Cigarette Smoker [facility] Start: 08-14-2024 Tobacco use and exposure Smokeless tobacco non-user [facility] Start: 08-14-2024 End: 09-11-2024 Alcoholic beverage intake Current drinker of alcohol (finding) [facility] Start: 08-14-2024 Alcohol Comment 2 BEERS/WK [facility] Sexual Orientation [facility] Medical Equipment Procedure Code Equipment Code Equipment Origin al Text Equipment Identifier Dates [facility] DME Prescription, See Instructions, 100 strip(s), 3, One touch ultra 2 test strips Use to tests sugars once a day Dx E11.9, [facility], 174.5, cm, 05/26/23 9:14:00 EST, Height/Length Dosing, 109.1, kg, 05/26/23 9:14:00 EST, Weight Dosing Start: 05-26-2023 [facility] DME Prescription, See Instructions, 100 lancet(s), 3, Soft click lancets Use to test blood sugars once a day Dx E11.9, [facility], 174.5, cm, 05/26/23 9:14:00 EST, Height/Length Dosing, 109.1, kg, 05/26/23 9:14:00 EST, Weight Dosing Start: 05-26-2023 [facility] DME Prescription, See Instructions, 100 strip(s), 3, One touch ultra 2 test strips Use to tests sugars once a day Dx E11.9, [facility] Supply, 174.5, cm, 05/26/23 9:14:00 EST, Height/Length Dosing, 109.1, kg, 05/26/23 9:14:00 EST, Weight Dosing Start: 05-26-2023 [facility] DME Prescription, See Instructions, 100 lancet(s), 3, Soft click lancets Use to test blood sugars once a day Dx E11.9, [facility], Supply, 174.5, cm, 05/26/23 9:14:00 EST, Height/Length Dosing, 109.1, kg, 05/26/23 9:14:00 EST, Weight Dosing Start: 05-26-2023 [facility] DME Prescription, See Instructions, 100 strip(s), 3, One touch ultra 2 test strips Use to tests sugars once a day Dx E11.9, [facility], Supply, 174.5, cm, 05/26/23 9:14:00 EST, Height/Length Dosing, 109.1, kg, 05/26/23 9:14:00 EST, Weight Dosing Start: 05-26-2023 [facility] DME Prescription, See Instructions, 100 lancet(s), 3, Soft click lancets Use to test blood sugars once a day Dx E11.9, [facility], Supply, 174.5, cm, 05/26/23 9:14:00 EST, Height/Length Dosing, 109.1, kg, 05/26/23 9:14:00 EST, Weight Dosing Start: 05-26-2023 [facility] DME Prescription, See Instructions, 100 strip(s), 3, One touch ultra 2 test strips Use to tests sugars once a day Dx E11.9, [facility], Supply, 174.5, cm, 05/26/23 9:14:00 EST, Height/Length Dosing, 109.1, kg, 05/26/23 9:14:00 EST, Weight Dosing Start: 05-26-2023 [facility] DME Prescription, See Instructions, 100 lancet(s), 3, Soft click lancets Use to test blood sugars once a day Dx E11.9, [facility], Supply, 174.5, cm, 05/26/23 9:14:00 EST, Height/Length Dosing, 109.1, kg, 05/26/23 9:14:00 EST, Weight Dosing Start: 05-26-2023 [facility] DME Prescription, See Instructions, 100 strip(s), 3, One touch ultra 2 test strips Use to tests sugars once a day Dx E11.9, [facility], Supply, 174.5, cm, 05/26/23 9:14:00 EST, Height/Length Dosing, 109.1, kg, 05/26/23 9:14:00 EST, Weight Dosing Start: 05-26-2023 [facility] DME Prescription, See Instructions, 100 lancet(s), 3, Soft click lancets Use to test blood sugars once a day Dx E11.9, [facility], 174.5, cm, 05/26/23 9:14:00 EST, Height/Length Dosing, 109.1, kg, 05/26/23 9:14:00 EST, Weight Dosing Start: 05-26-2023 [facility] DME Prescription, See Instructions, 100 strip(s), 3, One touch ultra 2 test strips Use to tests sugars once a day Dx E11.9, [facility], Supply, 174.5, cm, 05/26/23 9:14:00 EST, Height/Length Dosing, 109.1, kg, 05/26/23 9:14:00 EST, Weight Dosing Start: 05-26-2023 [facility] DME Prescription, See Instructions, 100 lancet(s), 3, Soft click lancets Use to test blood sugars once a day Dx E11.9, [facility], 174.5, cm, 05/26/23 9:14:00 EST, Height/Length Dosing, 109.1, kg, 05/26/23 9:14:00 EST, Weight Dosing Start: 05-26-2023 [facility] DME Prescription, See Instructions, 100 strip(s), 3, One touch ultra 2 test strips Use to tests sugars once a day Dx E11.9, [facility], 174.5, cm, 05/26/23 9:14:00 EST, Height/Length Dosing, 109.1, kg, 05/26/23 9:14:00 EST, Weight Dosing Start: 05-26-2023 [facility] DME Prescription, See Instructions, 100 lancet(s), 3, Soft click lancets Use to test blood sugars once a day Dx E11.9, [facility], 174.5, cm, 05/26/23 9:14:00 EST, Height/Length Dosing, 109.1, kg, 05/26/23 9:14:00 EST, Weight Dosing Start: 05-26-2023 [facility] DME Prescription, See Instructions, 100 strip(s), 3, One touch ultra 2 test strips Use to tests sugars once a day Dx E11.9, [facility], 174.5, cm, 05/26/23 9:14:00 EST, Height/Length Dosing, 109.1, kg, 05/26/23 9:14:00 EST, Weight Dosing Start: 05-26-2023 [facility] DME Prescription, See Instructions, 100 lancet(s), 3, Soft click lancets Use to test blood sugars once a day Dx E11.9, [facility], Supply, 174.5, cm, 05/26/23 9:14:00 EST, Height/Length Dosing, 109.1, kg, 05/26/23 9:14:00 EST, Weight Dosing Start: 05-26-2023 [facility] Prescription, See Instructions, 100 strip(s), 3, One touch ultra 2 test strips Use to tests sugars once a day Dx E11.9, [facility], Supply, 174.5, cm, 05/26/23 9:14:00 EST, Height/Length Dosing, 109.1, kg, 05/26/23 9:14:00 EST, Weight Dosing Start: 05-26-2023 [facility] Prescription, See Instructions, 100 lancet(s), 3, Soft click lancets Use to test blood sugars once a day Dx E11.9, [facility], Supply, 174.5, cm, 05/26/23 9:14:00 [...] 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 rt: 05-18-2017 [place] [employer] Lev el Deformity FDA Start: 05-18-2017 [...] tests sugars once a day Dx E11.9, [facility], Supply, 174.5, cm, 05/26/23 9:14:00 EST, Height/Length Dosing, 109.1, kg, 05/26/23 9:14:00 EST, Weight Dosing Start: 05-26-2023 [facility] Prescription, See Instructions, 100 lancet(s), 3, Soft click lancets Use to test blood sugars once a day Dx E11.9, [facility], Supply, 174.5, cm, 05/26/23 9:14:00 EST, Height/Length Dosing, 109.1, kg, 05/26/23 9:14:00 EST, Weight Dosing Start: 05-26-2023 [facility] Prescription, See Instructions, 100 strip(s), 3, One touch ultra 2 test strips Use to tests sugars once a day Dx E11.9, [facility], Supply, 174.5, cm, 05/26/23 9:14:00 EST, Height/Length Dosing, 109.1, kg, 05/26/23 9:14:00 EST, Weight Dosing Start: 05-26-2023 [facility] Prescription, See Instructions, 100 lancet(s), 3, Soft click lancets Use to test blood sugars once a day Dx E11.9, [facility], Supply, 174.5, cm, 05/26/23 9:14:00 EST, Height/Length Dosing, 109.1, kg, 05/26/23 9:14:00 EST, Weight Dosing Start: 05-26-2023 [facility] DME Prescription, See Instructions, 100 strip(s), 3, One touch ultra 2 test strips Use to tests sugars once a day Dx E11.9, [facility], Supply, 174.5, cm, 05/26/23 9:14:00 EST, Height/Length Dosing, 109.1, kg, 05/26/23 9:14:00 EST, Weight Dosing Start: 05-26-2023 [facility] DME Prescription, See Instructions, 100 lancet(s), 3, Soft click lancets Use to test blood sugars once a day Dx E11.9, [facility], 174.5, cm, 05/26/23 9:14:00 EST, Height/Length Dosing, 109.1, kg, 05/26/23 9:14:00 EST, Weight Dosing Start: 05-26-2023 [facility] DME Prescription, See Instructions, 100 strip(s), 3, One touch ultra 2 test strips Use to tests sugars once a day Dx E11.9, [facility], Supply, 174.5, cm, 05/26/23 9:14:00 EST, Height/Length Dosing, 109.1, kg, 05/26/23 9:14:00 EST, Weight Dosing Start: 05-26-2023 [facility] DME Prescription, See Instructions, 100 lancet(s), 3, Soft click lancets Use to test blood sugars once a day Dx E11.9, [facility], 174.5, cm, 05/26/23 9:14:00 EST, Height/Length Dosing, 109.1, kg, 05/26/23 9:14:00 EST, Weight Dosing Start: 05-26-2023 [facility] DME Prescription, See Instructions, 100 strip(s), 3, One touch ultra 2 test strips Use to tests sugars once a day Dx E11.9, [facility], 174.5, cm, 05/26/23 9:14:00 EST, Height/Length Dosing, 109.1, kg, 05/26/23 9:14:00 EST, Weight Dosing Start: 05-26-2023 [facility] DME Prescription, See Instructions, 100 lancet(s), 3, Soft click lancets Use to test blood sugars once a day Dx E11.9, [facility], 174.5, cm, 05/26/23 9:14:00 EST, Height/Length Dosing, 109.1, kg, 05/26/23 9:14:00 EST, Weight Dosing Start: 05-26-2023 [facility] DME Prescription, See Instructions, 100 strip(s), 3, One touch ultra 2 test strips Use to tests sugars once a day Dx E11.9, [facility], 174.5, cm, 05/26/23 9:14:00 EST, Height/Length Dosing, 109.1, kg, 05/26/23 9:14:00 EST, Weight Dosing Start: 05-26-2023 [facility] DME Prescription, See Instructions, 100 lancet(s), 3, Soft click lancets Use to test blood sugars once a day Dx E11.9, [facility], Supply, 174.5, cm, 05/26/23 9:14:00 EST, Height/Length Dosing, 109.1, kg, 05/26/23 9:14:00 EST, Weight Dosing Start: 05-26-2023 [facility] DME Prescription, See Instructions, 100 strip(s), 3, One touch ultra 2 test strips Use to tests sugars once a day Dx E11.9, [facility], Supply, 174.5, cm, 05/26/23 9:14:00 EST, Height/Length Dosing, 109.1, kg, 05/26/23 9:14:00 EST, Weight Dosing Start: 05-26-2023 [facility] DME Prescription, See Instructions, 100 lancet(s), 3, Soft click lancets Use to test blood sugars once a day Dx E11.9, [facility], Supply, 174.5, cm, 05/26/23 9:14:00 [...] tests sugars once a day Dx E11.9, [facility], Supply, 174.5, cm, 05/26/23 9:14:00 EST, Height/Length Dosing, 109.1, kg, 05/26/23 9:14:00 EST, Weight Dosing Start: 05-26-2023 [facility] DME Prescription, See Instructions, 100 lancet(s), 3, Soft click lancets Use to test blood sugars once a day Dx E11.9, [facility], Supply, 174.5, cm, 05/26/23 9:14:00 EST, Height/Length Dosing, 109.1, kg, 05/26/23 9:14:00 EST, Weight Dosing Start: 05-26-2023 [facility] DME Prescription, See Instructions, 100 strip(s), 3, One touch ultra 2 test strips Use to tests sugars once a day Dx E11.9, [facility], Supply, 174.5, cm, 05/26/23 9:14:00 EST, Height/Length Dosing, 109.1, kg, 05/26/23 9:14:00 EST, Weight Dosing Start: 05-26-2023 [facility] DME Prescription, See Instructions, 100 lancet(s), 3, Soft click lancets Use to test blood sugars once a day Dx E11.9, [facility], Supply, 174.5, cm, 05/26/23 9:14:00 EST, Height/Length Dosing, 109.1, kg, 05/26/23 9:14:00 EST, Weight Dosing Start: 05-26-2023 [facility] DME Prescription, See Instructions, 100 strip(s), 3, One touch ultra 2 test strips Use to tests sugars once a day Dx E11.9, [facility], Supply, 174.5, cm, 05/26/23 9:14:00 EST, Height/Length Dosing, 109.1, kg, 05/26/23 9:14:00 EST, Weight Dosing Start: 05-26-2023 [facility] DME Prescription, See Instructions, 100 lancet(s), 3, Soft click lancets Use to test blood sugars once a day Dx E11.9, [facility], Supply, 174.5, cm, 05/26/23 9:14:00 EST, Height/Length Dosing, 109.1, kg, 05/26/23 9:14:00 EST, Weight Dosing Start: 05-26-2023 [facility] DME Prescription, See Instructions, 100 strip(s), 3, One touch ultra 2 test strips Use to tests sugars once a day Dx E11.9, [facility], Supply, 174.5, cm, 05/26/23 9:14:00 EST, Height/Length Dosing, 109.1, kg, 05/26/23 9:14:00 EST, Weight Dosing Start: 05-26-2023 [facility] DME Prescription, See Instructions, 100 lancet(s), 3, Soft click lancets Use to test blood sugars once a day Dx E11.9, [facility], Supply, 174.5, cm, 05/26/23 9:14:00 EST, Height/Length Dosing, 109.1, kg, 05/26/23 9:14:00 EST, Weight Dosing Start: 05-26-2023 [facility] DME Prescription, See Instructions, 100 strip(s), 3, One touch ultra 2 test strips Use to tests sugars once a day Dx E11.9, [facility], Supply, 174.5, cm, 05/26/23 9:14:00 EST, Height/Length Dosing, 109.1, kg, 05/26/23 9:14:00 EST, Weight Dosing Start: 05-26-2023 [facility] DME Prescription, See Instructions, 100 lancet(s), 3, Soft click lancets Use to test blood sugars once a day Dx E11.9, [facility], Supply, 174.5, cm, 05/26/23 9:14:00 EST, Height/Length Dosing, 109.1, kg, 05/26/23 9:14:00 EST, Weight Dosing Start: 05-26-2023 [facility] DME Prescription, See Instructions, 100 strip(s), 3, One touch ultra 2 test strips Use to tests sugars once a day Dx E11.9, [facility], Supply, 174.5, cm, 05/26/23 9:14:00 EST, Height/Length Dosing, 109.1, kg, 05/26/23 9:14:00 EST, Weight Dosing Start: 05-26-2023 [facility] DME Prescription, See Instructions, 100 lancet(s), 3, Soft click lancets Use to test blood sugars once a day Dx E11.9, [facility], Supply, 174.5, cm, 05/26/23 9:14:00 EST, Height/Length Dosing, 109.1, kg, 05/26/23 9:14:00 EST, Weight Dosing Start: 05-26-2023 'Number 1' Gluco meter and test strips testing BS twice daily- will bring equipment to [facility]/ to update brand Start: 01-03-2024 'Number 1' Gluco meter and test strips testing BS twice daily- will bring equipment to [facility]/ to update brand Start: 01-03-2024 'Number 1' Gluco meter and test strips testing BS twice daily- will bring equipment to [facility] f/ to update brand Start: 01-03-2024 'Number 1' Gluco meter and test strips testing BS twice daily- will bring equipment to [facility] f/ to update brand Start: 01-03-2024 'Number 1' Gluco meter and test strips testing BS twice daily- will bring equipment to [facility]/ to update brand Start: 01-03-2024 'Number [...] TCM f/u to update brand Start: 01-03-2024 [facility] FDA Start: 05-18-2017 NUVASIVE RELINE [...] 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 rt: 05-18-2017 Goals Date Patient Goal Desired Activity /State Functional Status Date Assessment Result Facility 01-13-2024 Functional Status N/A [facility] 01-10-2024 Functional Status N/A [facility] 12-29-2023 Functional Status N/A [facility] 12-29-2023 Functional Status [facility] 11-28-2023 Functional Status N/A [facility] 10-19-2023 Functional Status No [facility] 09-22-2023 Functional Status N/A [facility] 08-19-2023 Functional Status N/A [facility] 08-11-2023 Functional Status No [facility] 07-27-2023 Functional Status N/A [facility] 07-15-2023 Functional Status N/A [facility] 06-21-2023 Functional Status N/A [facility] Clinical Notes 06-13-2019 to 01-08-2025 MEIR Bob - 09/25/2024 8:45 AM EDTMattMEIR Rush - 09/11/2024 9:15 AM EDTPatient InstructionsTelephone Encounter - Rosenda Wade - 08/28/2024 10:06 AM EDT Note Date & Type Note Facility 01-08-2025 Note Patient Education Endocrinology Type 2 Diabetes Mellitus, Diagnosis, Adult Type 2 diabetes (type 2 diabetes mellitus) is a long-term, or chronic, disease. In type 2 diabetes, one or both of these problems may be present: ??? The pancreas does not make enough of a hormone called insulin. ??? Cells in the body do not respond properly to the insulin that the body makes (insulin resistance). Normally, insulin allows blood sugar (glucose) to enter cells in the body. The cells use glucose for energy. Insulin resistance or lack of insulin causes excess glucose to build up in the blood instead of going into cells. This causes high blood glucose (hyperglycemia). What are the causes? The exact cause of type 2 diabetes is not known. What increases the risk? The following factors may make you more likely to develop this condition: ??? Having a family member with type 2 diabetes. ??? Being overweight or obese. ??? Being inactive (sedentary). ??? Having been diagnosed with insulin resistance. ??? Having a history of prediabetes, diabetes when you were (gestational diabetes), or polycystic ovary syndrome (PCOS). What are the signs or symptoms? In the early stage of this condition, you may not have symptoms. Symptoms develop slowly and may include: ??? Increased thirst or hunger. ??? Increased urination. ??? Unexplained weight loss. ??? Tiredness (fatigue) or weakness. ??? Vision changes, such as blurry vision. ??? Dark patches on the skin. How is this diagnosed? This condition is diagnosed based on your symptoms, your medical history, a physical exam, and your blood glucose level. Your blood glucose may be checked with one or more of the following blood tests: ??? A fasting blood glucose (FBG) test. You will not be allowed to eat (you will fast) for 8 hours or longer before a blood sample is taken. ??? A random blood glucose test. This test checks blood glucose at any time of day regardless of when you ate. ??? An A1C (hemoglobin A1C) blood test. This test provides information about blood glucose levels over the previous 2?3 months. ??? An oral glucose tolerance test (OGTT). This test measures your blood glucose at two times: ? After fasting. This is your baseline blood glucose level. ? Two hours after drinking a beverage that contains glucose. You may be diagnosed with type 2 diabetes if: ??? Your fasting blood glucose level is 126 mg/dL (7.0 mmol/L) or higher. ??? Your random blood glucose level is 200 mg/dL (11.1 mmol/L) or higher. ??? Your A1C level is 6.5% or higher. ??? Your oral glucose tolerance test result is higher than 200 mg/dL (11.1 mmol/L). These blood tests may be repeated to confirm your diagnosis. How is this treated? Your treatment may be managed by a specialist called an cell tender. Type 2 diabetes may be treated by following instructions from your health care provider about: ??? Making dietary and lifestyle changes. These may include: ? Following a personalized nutrition plan that is developed by a registered dietitian. ? Exercising regularly. ? Finding ways to manage stress. ??? Checking your blood glucose level as often as told. ??? Taking diabetes medicines or insulin daily. This helps to keep your blood glucose levels in the healthy range. ??? Taking medicines to help prevent complications from diabetes. Medicines may include: ? Aspirin. ? Medicine to lower cholesterol. ? Medicine to control blood pressure. Your health care provider will set treatment goals for you. Your goals will be based on your age, other medical conditions you have, and how you respond to diabetes treatment. Generally, the goal of treatment is to maintain the following blood glucose levels: ??? Before meals: 80?130 mg/dL (4.4?7.2 mmol/L). ??? After meals: below 180 mg/dL (10 mmol/L). ??? A1C level: less than 7%. Follow these instructions at home: Questions to ask your health care provider Consider asking the following questions: ??? Should I meet with a certified diabetes care and provider education specialist? What diabetes medicines do I need, and when should I take them? What equipment will I need to manage my diabetes at home? How often do I need to check my blood glucose? Where can I find a support group for people with diabetes? What number can I call if I have questions? When is my next appointment? General instructions ??? Take ijoi-xcn-pehpsol and prescription medicines only as told by your health care provider. ??? Keep all follow-up visits. This is important. Where to find more information For help and guidance and for more information about diabetes, please visit: ??? [place] Diabetes Association (ADA): www.diabetes.org ??? [place] Association of Diabetes Care and Education Specialists (ADCES): www.diabeteseducator.org ??? International Diabetes Federation (IDF): www.idf (more content not included)... [facility] 11-14-2024 Note Patient Education Urology Hematuria, Adult Hematuria is blood in the urine. Blood may be visible in the urine, or it may be identified with a test. This condition can be caused by infections of the bladder, urethra, kidney, or prostate. Other possible causes include: ??? Kidney stones. ??? Cancer of the urinary tract. ??? Too much calcium in the urine. ??? Conditions that are passed from parent to child (inherited conditions). ??? Exercise that requires a lot of energy. Infections can usually be treated with medicine, and a kidney stone usually will pass through your urine. If neither of these is the cause of your hematuria, more tests may be needed to identify the cause of your symptoms. It is very important to tell your health care provider about any blood in your urine, even if it is painless or the blood stops without treatment. Blood in the urine, when it happens and then stops and then happens again, can be a symptom of a very serious condition, including cancer. There is no pain in the initial stages of many urinary cancers. Follow these instructions at home: Medicines ??? Take ppnk-yes-jonxbil and prescription medicines only as told by your health care provider. ??? If you were prescribed an antibiotic medicine, take it as told by your health care provider. Do not stop taking the antibiotic even if you start to feel better. Eating and drinking ??? Drink enough fluid to keep your urine pale yellow. It is recommended that you drink 3?4 quarts (2.8?3.8 L) a day. If you have been diagnosed with an infection, drinking cranberry juice in addition to large amounts of water is recommended. ??? Avoid caffeine, tea, and carbonated beverages. These tend to irritate the bladder. ??? Avoid alcohol because it may irritate the prostate (in males). General instructions ??? If you have been diagnosed with a kidney stone, follow your health care provider's instructions about straining your urine to catch the stone. ??? Empty your bladder often. Avoid holding urine for long periods of time. ??? If you are female: ? After a bowel movement, wipe from front to back and use each piece of toilet paper only once. ? Empty your bladder before and after sex. ??? Pay attention to any changes in your symptoms. Tell your health care provider about any changes or any new symptoms. ??? It is up to you to get the results of any tests. Ask your health care provider, or the department that is doing the test, when your results will be ready. ??? Keep all follow-up visits. This is important. Contact a health care provider if: ??? You develop back pain. ??? You have a fever or chills. ??? You have nausea or vomiting. ??? Your symptoms do not improve after 3 days. ??? Your symptoms get worse. Get help right away if: ??? You develop severe vomiting and are unable to take medicine without vomiting. ??? You develop severe pain in your back or abdomen even though you are taking medicine. ??? You pass a large amount of blood in your urine. ??? You pass blood clots in your urine. ??? You feel very weak or like you might faint. ??? You faint. Summary ??? Hematuria is blood in the urine. It has many possible causes. ??? It is very important that you tell your health care provider about any blood in your urine, even if it is painless or the blood stops without treatment. ??? Take qdmi-mys-dobltwh and prescription medicines only as told by your health care provider. ??? Drink enough fluid to keep your urine pale yellow. This information is not intended to replace advice given to you by your health care provider. Make sure you discuss any questions you have with your health care provider. Document Revised: 01/21/2021 Document Reviewed: 01/21/2021 [employer] Patient Education ? 2023 [employer]. [facility] 10-08-2024 Note Patient Education Nutrition BMI for Adults [...] for Disease Control and Prevention: cdc.gov ??? [place] Heart Association: heart.org ??? National Heart, Lung, and Blood [place]: nhlbi.nih.gov This information is not intended to replace advice given to you by your health care provider. Make sure you discuss any questions you have with your health care provider. Document Revised: 02/10/2023 Document Reviewed: 02/03/2023 [employer] Patient Education ? 2023 [employer]. [facility] 09-25-2024 History of Present illness Narrative Images from the original note were not included. Orthopedic Office note: NAME: Alicja Reyes : 1955 (EST PT) P/O RT CTR 08/28/24 (4 WKS) @ [facility]-NOTES SOME IMPROVEMENT WITH RT LF/RF- CONTINUES TO HAVE N/T RT THUMB/IF/MF- DOES HEP- NO PAIN MEDS- INCISION HEALED WELL Physical Exam General Appearance: Normal. Respiratory: No acute distress Cardiovascular: Radial pulse is 2+. Musculoskeletal: No thenar atrophy. He is able to close his hand tightly into a fist and does not report any pain in his thumb or surgical incision. Skin: The right hand carpal tunnel surgical incision on the volar wrist is healing well with no erythema, warmth, or drainage. There is minimal scabbing. The skin appears to be healing well. No dependent bruising is observed. Neurological: Continued mild paresthesias in the median nerve distribution in the right hand. Other observations: None. No orders of the defined types were placed in this encounter. Procedures Results ICD-10-CM 1. S/P carpal tunnel release Z98.890 Assessment & Plan Postoperative status following right carpal tunnel release. He is demonstrating satisfactory progress post-surgery. Currently, there are no imposed restrictions. Treatment plan: Scar massage has been recommended as part of his recovery regimen. Clinical decision making: He is cognizant of the potential for his hand condition to remain unchanged due to pre-existing nerve damage and the duration of nerve compression prior to surgery. He has expressed gratitude for the surgical intervention at this juncture. Follow-up: He will contact the clinic if there is a deterioration in symptoms or the emergence of new ones. PROCEDURE Procedure Performed Right carpal tunnel release surgery. Questions answered in laymen terms at the bedside. The diagnosis, home exercise plan and any ongoing restrictions/ recommendations reviewed. If unable to be reached in office, I recommend evaluation at nearest Emergency Room if any symptoms worsened or new symptoms develop for requiring urgent evaluation. Visit was preformed using Learn with [employer] speech recognition. documented in this encounter [facility] 09-11-2024 History of Present illness Narrative Images from the original note were not included. HISTORY OF PRESENT ILLNESS: POST OP PT Alicja Reyes is an 69 y.o. @ male. 1ST P/O RT CTR 08/28/24 (2 WKS) @ [facility]. WEARING WRAP AND SPLINT. DENIES PAIN. NO PAIN MEDS. NOTES IMPROVEMENT IN N/T IN RT RF AND LF. CONTINUES HAVING NUMBNESS IN THUMB, IF AND MF - UNCHANGED. DENIES SWELLING. DOES NOT WAKE AT HS. DENIES ISSUES WITH INCISION. STITCHES INTACT, REMOVED TODAY. STERI STRIPS APPLIED. REVIEW OF SYSTEMS: General: Denies fever, fatigue or weight loss Lungs: Denies SOB Cardio: Denies chest pain GI: Denies indigestion or abdominal pain Neuro: Denies numbness or tingling, denies new onset paralysis Musculoskeletal: ( see note) PHYSICAL EXAM: Right Hand Exam Right hand exam is normal. Tenderness The patient is experiencing tenderness in the palmar area (EXPECTED POST OPERATIVE SORENESS AT INICISION.). Range of Motion The patient has normal right wrist ROM. Muscle Strength The patient has normal right wrist strength (MOTORS HAND AND WRIST WITHIN LIMITS OF SURGERY). Other Erythema: absent Scars: present (WELL HEALING, SUTURES PRESENT, REMOVED) Sensation: decreased (unchanged median nerve distribution.) Pulse: present Comments: The operative upper extremity was neurovascularly unchanged. Patient was able to motor fingers and thumb to operative upper extremity in all anatomic planes with 5 out of 5 strength. Radial and ulnar pulses were present and equal bilaterally postoperatively. Sensation to light touch was intact to all dermatomes to operative upper extremity postoperatively. Capillary refill was less than 2 seconds postoperatively to operative upper extremity nailbeds. Compartments were soft to operative upper extremity postoperatively. Procedures No orders of the defined types were placed in this encounter. ASSESSMENT: ICD-10-CM 1. S/P carpal tunnel release Z98.890 Assessment & Plan Post-operative status following right carpal tunnel release. He is demonstrating satisfactory progress, albeit with persistent numbness and paresthesia in the median nerve distribution. This symptom was consistently present prior to the surgical intervention. The concept of nerve healing time was discussed, and he understands that full recovery may not be guaranteed. However, it is anticipated that the atrophy in his thumb will not worsen, nor should there be any additional weakness. He expresses overall satisfaction with his recovery trajectory. There are no indications of infection. He has been advised against strenuous use of the hand, particularly activities involving heavy gripping or loading, and expresses gratitude for this guidance. Follow-up: The patient will follow up in 2 weeks for wound reassessment. PROCEDURE Procedure Performed Right carpal tunnel release Questions answered in laymen terms at the bedside. The diagnosis, home exercise plan and any ongoing restrictions/ recommendations reviewed. If unable to be reached in office, I recommend evaluation at nearest Emergency Room if any symptoms worsened or new symptoms develop for requiring urgent evaluation. documented in this encounter [facility] 09-11-2024 Instructions MEIR Bob - 09/11/2024 9:15 AM EDT Discussed Carpal Tunnel Surgery: Recommend tendon glides, slowly open and closed fist focusing on bending each joint 25 reps 4 times a day. No submerging wound. ( No swimming or washing dishes in standing water) Remove steri strips if still present in 7 days. It is ok if they fall off sooner. No heavy gripping, such as opening pickle jar . May use hand for phone, keyboarding and driving a car with power steering. Avoid putting pressure on palm. Ex.) pushing into arm of chair with palm or palm/ pushup position in bed to change position. Contact office with any concerns. If office is not reachable or after hours recommend local Emergency Room for more urgent evaluation. documented in this encounter [facility] 08-28-2024 Telephone encounter Note 's office left vm. Magnesium improved they stated. They stated that the final clearance is up to . The office phone number is [phone] ext [phone] [facility] 08-28-2024 Miscellaneous Notes 's office left vm. Magnesium improved they stated. They stated that the final clearance is up to . The office phone number is [phone] ext [phone] documented in this encounter [facility] 08-21-2024 Note Patient Education Urology Acute Urinary [...] these instructions at home: Medicines ??? Take jcwt-bzc-rlkwznj and prescription medicines only as told by [...] provider. Document Revised: 02/11/2021 Document Reviewed: 02/11/2021 TextHub Patient Education ? 2023 [employer]. [facility] 08-14-2024 History of Present illness Narrative [...] 9:15 [place]- RAUL. documented in this encounter [facility] 07-18-2024 History of Present illness Narrative NAME: Alicja Reyes : 1955 HISTORY OF PRESENT ILLNESS: NEW PT Alicja Reyes is an 69 y.o. @ male. (NEW PT) - (R) HAND DISCOMFORT ~5 MONTHS ; S/P B/L UE EMG 05/22/24 @[facility] NO XRAY B/L UE EMG 05/22/24 @[facility] NOTES NUMBNESS IN FINGERS. INTERMITTENT SHARP STABBING PAIN IN ALL FINGERS BUT THUMB. DISCOMFORT ~5 MONTHS (02/2024). DIFFICULTY TAKING PILLS. 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 ADMITS N/T. GOOD ROM [...] is normal. Strength additional comments: 5/5 EQUAL FACING CUTTING MACHINE OPERATOR STRENGTH Neurovascular Right Right neurovascular exam is [...] requiring urgent evaluation. documented in this encounter [facility] 07-16-2024 Note Patient Education Nutrition [...] for Disease Control and Prevention: cdc.gov ??? [place] Heart Association: heart.org ??? National Heart, Lung, and Blood [place]: nhlbi.nih.gov This information is not intended to replace advice given to you by your health care provider. Make sure you discuss any questions you have with your health care provider. Document Revised: 02/10/2023 Document Reviewed: 02/03/2023 TextHub Patient Education ? 2023 [employer]. [facility] 07-09-2024 Note Patient Education Cardiovascular Hypertension, [...] 12 oz bottle (more content not included)... [facility] 05-22-2024 History of Present illness Narrative Images from the original note were not included. Reason for Appointment: EMG Patient: Alicja Reyes : 1955 EMG Computer: [email or web address] Referring Physician: Marino Kearns CNP EMG: ADELAIDA on call pharmacy technician: Gee Wang RT(R) Office Location: [place] Reason for EMG: c/o numbness/tingling in fingers on left hand. Hx of left CTR & surgery to left elbow. Hx of DM. Not on blood thinners. Comments: Procedure was explained to the patient who expressed understanding. Patient appeared to have tolerated the test well despite some discomfort due to the nature of the test. documented in this encounter [facility] 05-18-2024 Note Patient Education Neurology [...] liquor (44 mL). General instructions ??? Take bkcv-vyq-tzspmqh and prescription medicines only as told by [...] provider. Document Revised: 02/01/2022 Document Reviewed: 02/01/2022 TextHub Patient Education ? 2023 [employer]. [facility] 01-30-2024 Note Nurse Consultation N ote [...] virus vaccine, inactivated 04/05/2022 Recorded SARS-CoV-2 (COVID-19) [id number] 04/05/2022 Recorded influenza virus vaccine, inactivated 03/01/2021 Recorded SARS-CoV-2 (COVID-19) mRNA BNT-162b2 vax 03/01/2021 Recorded 2023-01-13: [id number] SARS-CoV-2 (COVID-19) mRNA BNT-162b2 vax 08/08/2020 Recorded SARS-CoV-2 (COVID-19) mRNA BNT-162b2 vax 07/18/2020 Recorded pneumococcal 13-valent vaccine 03/09/2020 Recorded influenza virus vaccine, inactivated 03/09/2020 Recorded [facility] 01-11-2024 Note Nurse Consultation N ote Reason for Visit Here for lab draw and Dr Tao ordered PSA free and total also joni that for him. canceled the urine culture as patient had urine done at [facility] yesterday and was told it's fine [...] virus vaccine, inactivated 04/05/2022 Recorded SARS-CoV-2 (COVID-19) [id number].[id number] 04/05/2022 Recorded influenza virus vaccine, inactivated 03/01/2021 Recorded SARS-CoV-2 (COVID-19) mRNA BNT-162b2 vax 03/01/2021 Recorded 2023-01-13: [id number] SARS-CoV-2 (COVID-19) mRNA BNT-162b2 vax 08/08/2020 Recorded SARS-CoV-2 (COVID-19) mRNA BNT-162b2 vax 07/18/2020 Recorded pneumococcal 13-valent vaccine 03/09/2020 Recorded influenza virus vaccine, inactivated 03/09/2020 Recorded [facility] 01-10-2024 Hospital Discharge instructions Patient Education [...] and water are not available, use hand legal contracts specialist. 2.Clean your penis with soap and water. [...] reusable catheter in a small bathroom. Take lhiw-ikl-lssnbnl and prescription medicines only as told by [...] provider. Document Revised: 03/29/2022 Document Reviewed: 03/29/2022 TextHub Patient Education 2022 [employer]. Follow Up Care 09/22/2023 13:04:49 With:EMMY REYNOLDS, Bryant Vogel, URL Address: [address] [place] [address]- When: Unknown Comments:6 mos [facility] 01-10-2024 Note Patient Education Urology Clean Intermittent [...] and water are not available, use hand legal contracts specialist. 2. Clean your penis with soap and [...] catheter in a small bathroom. ? Take gssg-lwt-ionxbvm and prescription medicines onl (more content not included)... [facility] 12-31-2023 Note Discharge Summary Admission and Discharge Information Admit Date/Time:12/29/2023 15:45 Admitting Physician - Artemio Olivares DO Consulting Physician - Ok REYNOLDS Ramos Admitting Diagnoses: Discharge Diagnoses 1. Hypomagnesemia, 12/29/2023 [...] made to ensure accuracy, however, inadvertently computerized abrasive wheel molder mistakes may be present. Significant Findings No qualifying data available. Services Consulted Consult to Nephrology - Ordered -- 12/29/23 15:09:00 EDT, Refractory hypomagnesemia, REQUESTED BY DR. GRACE, Consult and Co-manage Consult to Nephrology - Ordered -- 12/29/23 15:22:00 EDT, recurrent hypomag., renal wasting, Consult and Co-manage Consult to Social Servi (more content not included)... [facility] Comment on above: Result Comment: Elec tronically Signed By: Dacia MEYER\.br\Date and Time Signed: 12/30/23 12:31 EDT\.br\Electronically Co-Signed By: Dacia MEYER\.br\Date and Time Co-Signed: 12/30/23 12:32 EDT\.br\Electronically Co-Signed By: Artemio Olivares DO\.br\Date and Time Co-Signed: 12/31/23 07:05 EDT 12-30-2023 Note Consultation Note Patient: ALICJA REYES Age: 68 years Sex: Male : 1955 Associated Diagnoses: None Author: Hlelen Luna CNP Basic Information Requesting Provider: Hospitalist [...] BID, # 360 tab(s), Refills(s) 1, Pharmacy: [facility], 174, cm, 07/26/23 10:21:00 EST, Height/Length Dosing, 104.8, kg, 07/26/23 10:21:00 EST, Weight Dosing Misc DME [facility], See Instructions, 1 kit(s), 0, One Touch Ultra 2 glucose meter kit Use to tests sugars daily E11.9, [facility], Supply, 174.5, cm, 05/26/23 9:14:00 EST, Height/Length Dosing, 109.1, kg, 05/26/23 9:14:00... Misc DME Prescription: Misc DME Prescription, See Instructions, 100 Unspecified/Unknown, 3, Alcohol prep pads Use to test blood sugars daily Dx E11.9, [facility], Supply, 174.5, cm, 05/26/23 9:14:00 EST, Height/Length Dosing, 109.1, kg, 05/26/23 9:1... Misc DME Prescription: [facility] Pres[facility], See Instructions, 100 lancet(s), 3, Soft click lancets Use to test blood sugars once a day Dx E11.9, [facility], Supply, 174.5, cm, 05/26/23 9:14:00 EST, Height/Length Dosing, 109.1, kg, 05/26/23 9:14:00... Misc DME Prescription: Misc DME Prescription, See Instructions, 100 strip(s), 3, One touch ultra 2 test strips Use to tests sugars once a day Dx E (more content not included)... [facility] Comment on above: Result Comment: Elec tronically Signed By: Darshan WHATLEY, Hellen N.\.br\Date and Time Signed: 12/29/23 18:22 EDT\.br\Electronically Co-Signed [...] Do not drink alcohol. General instructions Take cmvo-xdh-ktcphzs and prescription medicines only as told by [...] provider. Document Revised: 10/20/2021 Document Reviewed: 10/20/2021 TextHub Patient Education 2022 [employer]andy. 12/30/2023 12:37:57 Hypomagnesemia Hypomagnesemia Hypomagnesemia is a [...] Do not drink alcohol. General instructions Take pcwy-kwv-dgzzcim and prescription medicines only as told by [...] provider. Document Revised: 10/20/2021 Document Reviewed: 10/20/2021 TextHub Patient Education 2022 [employer] Inc. 12/30/2023 12:30:15 How to Take Your Blood Pressure, Lirj-hu-Spfs How to Take Your Blood Pressure Blood [...] Follow these instructions at home: Medicines Take nslz-wwe-dlpglba and prescription medicines only as told by [...] monitor. You can buy one at a [employer] or online. When choosing one: Choose one with an arm cuff. Choose one that wraps around your upper arm. Only one finger should fit between your arm and the cuff. Do not choose one that measures your blood pressure from your wrist or finger. Where to find more information [place] Heart Association: www.heart.org Contact a doctor if: [...] provider. Document Revised: 02/04/2022 Document Reviewed: 02/04/2022 TextHub Patient Education 2022 [employer]. 12/30/2023 12:30:15 Form - Blood Pressure Record [...] provider. Document Revised: 02/04/2022 Document Reviewed: 02/04/2022 TextHub Patient Education 2022 [employer]Hub Inc. 12/30/2023 11:53:55 Urinary Tract Infection, Adult, Bifs-wd-Scee Urinary Tract Infection, Adult A urinary tract [...] Follow these instructions at home: Medicines Take kesz-hxn-shcztjv and prescription medicines only as told by [...] provider. Document Revised: 01/02/2021 Document Reviewed: 01/02/2021 TextHub Patient Education 2022 [employer]andy. 12/30/2023 11:53:55 Hypomagnesemia Hypomagnesemia Hypomagnesemia is a [...] Do not drink alcohol. General instructions Take lpxg-urk-vvyrzwx and prescription medicines only as told by [...] provider. Document Revised: 10/20/2021 Document Reviewed: 10/20/2021 TextHub Patient Education 2022 [employer]. Follow Up Care 12/29/2023 13:34:47 With:Ramos Euceda Address: [address] [place] [address]- Business (1) When: Unknown Comments:Call for followup appointment in [place] office With:Nancy Grace Address: [address] [place] [address]- Business (2) When:01/05/2024 07:45:00 [facility] 12-30-2023 Note Interdisciplinary No te - PT Order received, chart reviewed. Attempted PT evaluation at 1141 on 12/30/23. Upon attempt, pt. is speaking with Dacia Bañuelos AGACNP-BP and threatening to leave AMA. Dacia instructs PT to hold evaluation at this time. Please re-order PT evaluation if deemed necessary in the future. No PT charges. [facility] 12-29-2023 Evaluation + Plan note Extrac [...] deep vein thrombosis (DVT) prophylaxis (Z79.899: Other care home (current) drug therapy) Orders: magnesium sulfate + [...] use - [facility] to [facility] 4. Anemia (D64.9: Anemia, unspecified) Baseline [...] deep vein thrombosis (DVT) prophylaxis (Z79.899: Other intermission coordinator (current) drug therapy) -Lovenox Orders: acetaminophen, 650 [...] Cardiac Monitoring CBC w/ Auto Diff Clinical [place] Withdrawal Assessment Clinical [place] Withdrawal Assessment Clinical [place] Withdrawal Assessment Clinical [place] Withdrawal Assessment Communication Order Physician to Nursing Communication Order Physician to Nursing Consult to Nephrology Consult to Bartenders Drug Screen Urine Elevate Head of Bed [...] made to ensure accuracy, however, inadvertently computerized abrasive wheel molder mistakes may be present. Future Appointments Appointment Date:01/05/2024 07:45:00 AM Scheduled Provider:Nancy Grace MD Location:[facility] Appointment Type: Hospital Follow Up w/TCM Appointment Date:01/10/2024 08:15:00 AM Scheduled Provider:Bryant TAO MD Location:[facility] [place] Appointment Type:URO Office Visit Appointment Date:01/13/2024 09:00:00 AM Scheduled Provider:Javier Goins MD [facility] [place] Appoint[facility] Type:Cardiology Follow Up (FT) Appointment Date:07/09/2024 08:00:00 AM Scheduled Provider: Location:[facility] Appointment Type: Medicare Wellness Subsequent Diagnostic Tests Pending * PTH Intact 12/30/23 Future Scheduled Tests Laboratory* U Protein/Creat Ratio 07/14/23 * HgbA1c 07/14/23 * HgbA1c 07/26/23 * Microalbumin Level Urine 07/14/23 * CBC w/ Auto Diff 07/14/23 * Comprehensive Metabolic Panel 07/14/23 * Lipid Panel 07/14/23 [facility] 06-24-2024 Hospital Discharge instructions Patient Education [...] Care 09/27/2023 14:45:03 With:Bryant TAO Address: [address] [id number]- Business (1) When: Unknown Comments:As we discussed, [...] are at least emptying the bladder intermittently. [facility]06-24-2024 Note [id number] 11-28-2023 NoteCystoscopy ? Voiding after the [...] if you have a fever over 100 degrees.[facility] 09-22-2023 Hospital Discharge instructions Patient Education [...] including vitamins, herbs, eye drops, creams, and ipqk-zln-naqapfw medicines. Any problems you or family members [...] provider tells you to take them. Taking hzew-mvt-bsuwbaf medicines, vitamins, herbs, and supplements. Tests You [...] Follow these instructions at home: Medicines Take zetq-krb-dhairsu and prescription medicines only as told by [...] provider. Document Revised: 02/03/2022 Document Reviewed: 01/02/2021 TextHub Patient Education 2022 Win[employer]andy. Follow Up Care 09/06/2023 09:35:10 With:EMMY REYNOLDS, Bryant Vogel, URL Address: [address] [place], [place] [id number]- When: Unknown [facility] 04-18-2024 NoteUrology Cystoscopy Cystoscopy is a procedure that [...] including vitamins, herbs, eye drops, creams, and bxtb-sxr-jbjjljb medicines. ? Any problems you or family [...] tells you to take them. ? Taking nxpf-hai-uwmjsuf medicines, vitamins, herbs, and supplements. Tests You [...] these instructions at home: Medicines ? Take mcrf-kzp-roxookd and prescription medicines only as told by [...] the department th (more content not included)...Anjel [facility] 08-17-2023 [id number] [facility]02-21-2024 Hospital Discharge instructions Patient Education 07/27/2023 11:28:01 [...] discomfort near your rectum, especially while sitting. [place]-colored urine due to small amounts of blood in your urine. A burning feeling while urinating. Blood in your stool (feces) or bleeding from your rectum. Blood in your semen. Follow these instructions at home: Medicines Take zkie-hcy-hekzbpj and prescription medicines only as told by [...] provider. Document Revised: 11/16/2021 Document Reviewed: 11/16/2021 TextHub Patient Education 2022 [employer]. 07/27/2023 11:28:00 Transrectal Ultrasound-Guided Prostate Biopsy Transrectal [...] including vitamins, herbs, eye drops, creams, and qxcm-gxl-gajplrt medicines. Any problems you or family members [...] provider tells you to take them. Taking ggli-hjp-sqeyqqn medicines, vitamins, herbs, and supplements. General instructions [...] provider. Document Revised: 11/16/2021 Document Reviewed: 11/16/2021 TextHub Patient Education 2022 WinFree[employer]andy. Follow Up Care 07/26/2023 12:46:05 With:RAMANDEEP PORTER PA-C, URL Address: [address] [place] [address] When: Unknown [facility] [place] 01-16-2024 Hospital Discharge instructions Patient [...] including vitamins, herbs, eye drops, creams, and oqmg-yrj-pmgrcgh medicines. Any problems you or family members [...] provider tells you to take them. Taking fedp-xpg-myopdrd medicines, vitamins, herbs, and supplements. Tests You [...] Follow these instructions at home: Medicines Take iese-hjb-vqynewg and prescription medicines only as told by [...] provider. Document Revised: 02/03/2022 Document Reviewed: 01/02/2021 TextHub Patient Education 2022 [employer]. 06/21/2023 14:21:23 Acute Urinary Retention, Male Acute [...] Follow these instructions at home: Medicines Take vxzr-qjw-qqcpbnq and prescription medicines only as told by [...] provider. Document Revised: 02/11/2021 Document Reviewed: 02/11/2021 TextHub Patient Education 2022 [employer]. Follow Up Care 06/21/2023 10:00:59 With:MINDI CHRISTIAN, RAMANDEEP Green, URL Address: [address] [place] [phone] When: Unknown Comments:sched cysto and prostate MRI [facility] 03-01-2020 Evaluation + Plan note Future Appointments Appointment Date:08/02/2023 08:00:00 AM Scheduled Provider: [facility] Type:CV Echo (FT) Appointment Date:08/05/2023 08:45:00 AM Scheduled Provider: [facility] Appointment Type:NM Myocard Spect Multi Rest/Stress-Res Appointment Date:08/05/2023 09:45:00 AM Scheduled Provider: [facility] App[facility] Type:NM Myocard Spect Multi Rest/Stress - R Appointment Date:08/05/2023 10:15:00 AM Scheduled Provider: Location[facility] Appointment Type:NM Myocard Spect Multi Rest/Stress-Str Appointment Date:08/05/2023 11:15:00 AM Scheduled Provider: [facility] Appointment Type:NM Myocar Spect Multi Rest/Stress - St Appointment Date:08/08/2023 02:00:00 PM Scheduled Provider: Location:[facility] Appointment Type:Urology FT Appointment Date:08/08/2023 03:00:00 PM Scheduled Provider: Location:[facility] Appointment Type:Urology FT Appointment Date:08/15/2023 07:00:00 AM Scheduled Provider:Nancy Grace MD Location:[facility] Appointment Type:FM Open Appointment Date:08/19/2023 11:45:00 AM Scheduled Provider:Troy Coulter MD [facility] Type:Cardiology Follow Up (FT) Appointment Date:07/09/2024 08:00:00 AM Scheduled Provider: Location:[facility] Appointment Type:FM Medicare Wellness Subsequent Future Scheduled Tests Laboratory* U Protein/Creat Ratio 07/14/23 * HgbA1c 07/14/23 * HgbA1c 07/26/23 * Microalbumin Level Urine 07/14/23 * CBC w/ Auto Diff 07/14/23 * Comprehensive Metabolic Panel 07/14/23 * Lipid Panel 07/14/23 Radiology* NM Myocardial Spect Rest/Stress 1 Day 08/05/23 * Echo Transthoracic Complete 08/02/23 [facility] [place] 01-08-2020 Evaluation + Plan note Future Appointments Appointment Date:06/09/2023 08:00:00 AM Scheduled Provider: [facility] Appoint[facility] Type:CV Echo (FT) Appointment Date:06/13/2023 08:00:00 AM Scheduled Provider:Nancy Grace MD Location:[facility] Appointment Type: Open Appointment Date:07/11/2023 09:00:00 AM Scheduled Provider:Manolo ALLEN MD Location:[facility] Appointment Type:URO New Patient Appointment Date:07/27/2023 02:00:00 PM Scheduled Provider: Location:[facility] Appointment Type: Medicare Wellness Subsequent Appointment Date:07/27/2023 02:40:00 PM Scheduled Provider:Nancy Grace MD Location:[facility] Appointment Type: Open Future Scheduled Tests Radiology* Echo Transthoracic [facility] Appointment Date:07/27/2023 02:00:00 PM Scheduled Provider: Location:[facility] Appointment Type: Medicare Wellness Subsequent Appointment Date:07/27/2023 02:40:00 PM Scheduled Provider:Nancy Grace MD Location:[facility]ment Type: [facility] Future Appointments Appointment Date:05/16/2023 07:20:00 AM Scheduled Provider:Nancy Grace MD [facility] Appoint[facility] Type: Open Appointment Date:07/27/2023 02:00:00 PM Scheduled Provider: Location:[facility] Appointment Type: Medicare Wellness Subsequent Appointment Date:07/27/2023 02:40:00 PM Scheduled Provider:Nancy Grace MD Location:[facility]ointment Type: Open [facility] Future Appointments Appointment Date:05/16/2023 07:20:00 AM Scheduled Provider:Nancy Grace MD Location[facility] Appointment Type: Open Appointment Date:07/27/2023 02:00:00 PM Scheduled Provider: Location:[facility] Appointment Type: Medicare Wellness Subsequent Appointment Date:07/27/2023 02:40:00 PM Scheduled Provider:Nancy Grace MD Location:[facility] Appointment Type: Open Diagnostic Tests Pending * Urine Culture [facility] App[facility]ments Appointment Date:07/11/2023 09:00:00 AM Scheduled Provider:Manolo ALLEN MD Location:[facility] Appointment Type:URO New Patient Appointment Date:07/27/2023 02:00:00 PM Scheduled Provider: Location:[facility] Appointment Type: Medicare Wellness Subsequent Appointment Date:07/27/2023 02:40:00 PM Scheduled Provider:Nancy Grace MD Location:[facility] Appointment Type: Open Diagnostic Tests Pending * Urine Culture 05/16/23 Future Scheduled Tests Radiology* Echo Transthoracic [facility] App[facility]ments Appointment Date:05/27/2023 08:20:00 AM Scheduled Provider[facility]:FM Nurse Visit Appointment Date:06/09/2023 08:00:00 AM Scheduled Provider: Location:.[facility] Appointment Type:CV Echo () Appointment Date:06/13/2023 08:00:00 AM Scheduled Provider:Nancy Grace MD Location:[facility] Appointment Type:FM Open Appointment Date:07/11/2023 09:00:00 AM Scheduled Provider:Manolo ALLEN MD Location:[facility] Appointment Type:URO New Patient Appointment Date:07/27/2023 02:00:00 PM Scheduled Provider: Location:[facility] Appointment Type:FM Medicare Wellness Subsequent Appointment Date:07/27/2023 02:40:00 PM Scheduled Provider:Nancy Grace MD Location:[facility] Appointment Type: Open Diagnostic Tests Pending * Urine Culture 05/26/23 Future Scheduled Tests Laboratory* Basic Metabolic Panel 05/26/23 Radiology* Echo Transthoracic [facility] App[facility]ments Appointment Date:06/13/2023 08:00:00 AM Scheduled Provider:Nancy Grace MD Location:[facility] Appointment Type: Open Appointment Date:06/29/2023 10:15:00 AM Scheduled Provider:Kristel Tolentino MD Location:[facility] Appointment Type:URO New Patient Appointment Date:07/25/2023 02:00:00 PM Scheduled Provider: Location:[facility] Appointment Type: Medicare Wellness Subsequent Appointment Date:07/25/2023 03:00:00 PM Scheduled Provider:Nancy Grace MD [facility] Appointment Date:06/29/2023 10:15:00 AM Scheduled Provider:Kristel Tolentino MD Location:[facility] Appointment Type:URO New Patient Appointment Date:07/14/2023 10:00:00 AM Scheduled Provider:Nancy Grace MD Location:[facility] Appointment Type: Open Appointment Date:07/15/2023 02:00:00 PM Scheduled Provider:Troy Coulter MD [facility] [place] [facility] Type:Cardiology New Patient (FT) Appointment Date:07/25/2023 02:00:00 PM Scheduled Provider: Location:[facility] Appointment Type: Medicare Wellness Subsequent Appointment Date:07/25/2023 03:00:00 PM Scheduled Provider:Nancy Grace MD Location[facility] Appointment Date:06/22/2023 10:30:00 AM Scheduled Provider: [facility]:URO Nurse Visit Appointment Date:06/28/2023 07:45:00 AM Scheduled Provider:Nancy Grace MD [facility] Appointment Type: Hospital Follow Up w/TCM Appointment Date:07/14/2023 10:00:00 AM Scheduled Provider:Nancy Grace MD Location:[facility] Appointment Type: Open Appointment Date:07/15/2023 02:00:00 PM Scheduled Provider:Troy Coulter MD [facility] [place] App[facility] Type:Cardiology New Patient (FT) Appointment Date:07/25/2023 02:00:00 PM Scheduled Provider: Location:[facility] Appointment Type: Medicare Wellness Subsequent Appointment Date:07/25/2023 03:00:00 PM Scheduled Provider:Nancy Grace MD Location:[facility] Appointment Type:[facility] evaluation + Plan note Future Appointments Appointment Date:06/23/2023 08:00:00 AM Scheduled Provider: Location:[facility] Appointment Type:URO Nurse Visit Appointment Date:06/28/2023 07:45:00 AM Scheduled Provider:Nancy Grace MD Location[facility] Appointment Type: Hospital Follow Up w/TCM Appointment Date:07/14/2023 10:00:00 AM Scheduled Provider:Nancy Grace MD Location:[facility] Appointment Type: Open Appointment Date:07/15/2023 02:00:00 PM Scheduled Provider:Troy Coulter MD [facility] App[facility] Type:Cardiology New Patient (FT) Appointment Date:07/25/2023 02:00:00 PM Scheduled Provider: Location:[facility] Appointment Type: Medicare Wellness Subsequent Appointment Date:07/25/2023 03:00:00 PM Scheduled Provider:Nancy Grace MD Location:[facility] Appointment Type: Open [facility] evaluation + Plan note Future Appointments Appointment Date:06/28/2023 07:45:00 AM Scheduled Provider:Nancy Grace MD Location:[facility] Appointment Type: Hospital Follow Up w/TCM Appointment Date:07/14/2023 10:00:00 AM Scheduled Provider:Nancy Grace MD Location:[facility] Appointment Type: Open Appointment Date:07/15/2023 02:00:00 PM Scheduled Provider:Troy Coulter MD [facility] Appointment Type:Cardiology New Patient (FT) Appointment Date:07/25/2023 02:00:00 PM Scheduled Provider: Location:[facility] Appointment Type: Medicare Wellness Subsequent Appointment Date:07/25/2023 03:00:00 PM Scheduled Provider:Nancy Grace MD Location:[facility] Appointment Type:[facility] evaluation + Plan note Future Appointments Appointment Date:07/14/2023 10:00:00 AM Scheduled Provider:Nancy Grace MD Location:[facility] Appointment Type: Open Appointment Date:07/15/2023 02:00:00 PM Scheduled Provider:Troy Coulter MD [facility] [place] Appoint[facility] Type:Cardiology New Patient (FT) Appointment Date:07/25/2023 02:00:00 PM Scheduled Provider: Location:[facility] Appointment Type: Medicare Wellness Subsequent Appointment Date:07/25/2023 03:00:00 PM Scheduled Provider:Nancy Grace MD Location:[facility] Appointment Type: Open Appointment Date:08/08/2023 02:00:00 PM Scheduled Provider: Location:[facility] Appointment Type:Urology FT Appointment Date:08/08/2023 03:00:00 PM Scheduled Provider: Location:[facility] App[facility] App[facility]ments Appointment Date:07/25/2023 02:00:00 PM Scheduled Provider: Location:[facility] Appointment Type: Medicare Wellness Subsequent Appointment Date:07/25/2023 03:00:00 PM Scheduled Provider:Nancy Grace MD Location:[facility] Appointment Type: Open Appointment Date:08/02/2023 08:00:00 AM Scheduled Provider: [facility] Type:CV Echo (FT) Appointment Date:08/08/2023 02:00:00 PM Scheduled Provider: Location:[facility] Appointment Type:Urology FT Appointment Date:08/08/2023 03:00:00 PM Scheduled Provider: Location:[facility] Appointment Type:Urology FT Appointment Date:08/19/2023 11:45:00 AM Scheduled Provider:Troy Coulter MD [facility] [place] [facility] Type:Cardiology Follow Up (FT) Future Scheduled Tests Laboratory* U Protein/Creat Ratio 07/14/23 * HgbA1c 07/14/23 * Microalbumin Level Urine 07/14/23 * CBC w/ Auto Diff 07/14/23 * Comprehensive Metabolic Panel 07/14/23 * Lipid Panel 07/14/23 Radiology* Echo Transthoracic Complete [facility]02[facility] App[facility]ments Appointment Date:08/05/2023 08:45:00 AM Scheduled Provider: [facility] Appointment Type:NM Myocard Spect Multi Rest/Stress-Res Appointment Date:08/05/2023 09:45:00 AM Scheduled Provider: [facility] Appointment Type:NM Myocard Spect Multi Rest/Stress - R Appointment Date:08/05/2023 10:15:00 AM Scheduled Provider: [facility] Appointment Type:NM Myocard Spect Multi Rest/Stress-Str Appointment Date:08/05/2023 11:15:00 AM Scheduled Provider: [facility] Appointment Type:NM Myocar Spect Multi Rest/Stress - St Appointment Date:08/15/2023 07:00:00 AM Scheduled Provider:Nancy Grace MD Location:[facility] Appointment Type: Open Appointment Date:08/19/2023 11:45:00 AM Scheduled Provider:Troy Coulter MD [facility] [place] Appoint[facility] Type:Cardiology Follow Up (FT) Appointment Date:07/09/2024 08:00:00 AM Scheduled Provider: Location:[facility] Appointment Type: Medicare Wellness Subsequent Future Scheduled Tests Laboratory* U Protein/Creat Ratio 07/14/23 * HgbA1c 07/14/23 * HgbA1c 07/26/23 * Microalbumin Level Urine 07/14/23 * CBC w/ Auto Diff 07/14/23 * Comprehensive Metabolic Panel 07/14/23 * Lipid Panel 07/14/23 Radiology* NM Myocardial Spect Rest/Stress 1 Day [facility]05[facility] Future Appointments Appointment Date:08/08/2023 12:30:00 PM Scheduled Provider: [facility] Appointment Type:NM Myocard Spect Multi Rest/Stress-Res Appointment Date:08/08/2023 01:30:00 PM Scheduled Provider: [facility] Appointment Type:NM Myocard Spect Multi Rest/Stress - R Appointment Date:08/08/2023 02:00:00 PM Scheduled Provider: [facility] Appointment Type:NM Myocard Spect Multi Rest/Stress-Str Appointment Date:08/08/2023 03:00:00 PM Scheduled Provider: [facility] Appointment Type:NM Myocar Spect Multi Rest/Stress - St Appointment Date:08/11/2023 09:30:00 AM Scheduled Provider: Location:[facility] Appointment Type:Surgical PAT FT Appointment Date:08/15/2023 07:00:00 AM Scheduled Provider:Nancy Grace MD Location:[facility] Appointment Type: Open Appointment Date:08/19/2023 11:45:00 AM Scheduled Provider:Troy Coulter MD [facility] Appointment Type:Cardiology Follow Up (FT) Appointment Date:09/01/2023 01:30:00 PM Scheduled Provider: Location:[facility] Appointment Type:Surgery FT Appointment Date:07/09/2024 08:00:00 AM Scheduled Provider: Location:[facility] Appointment Type: Medicare Wellness Subsequent Future Scheduled Tests Laboratory* U Protein/Creat Ratio 07/14/23 * HgbA1c 07/14/23 * HgbA1c 07/26/23 * Microalbumin Level Urine 07/14/23 * CBC w/ Auto Diff 07/14/23 * Comprehensive Metabolic Panel 07/14/23 * Lipid Panel [facility]23 [facility] Future App[facility]ments Appointment Date:08/15/2023 07:00:00 AM Scheduled Provider:Nancy Grace MD Location:[facility] Appointment Type: Open Appointment Date:08/19/2023 11:45:00 AM Scheduled Provider:Troy Coulter MD Location:[facility] Appointment Type:Cardiology Follow Up (FT) Appointment Date:09/01/2023 01:30:00 PM Scheduled Provider: Location:[facility] Appointment Type:Surgery FT Appointment Date:07/09/2024 08:00:00 AM Scheduled Provider: Location:[facility] Appointment Type:FM Medicare Wellness Subsequent Future Scheduled Tests Laboratory* U Protein/Creat Ratio 07/14/23 * HgbA1c 07/14/23 * HgbA1c 07/26/23 * Microalbumin Level Urine 07/14/23 * CBC w/ Auto Diff 07/14/23 * Comprehensive Metabolic Panel 07/14/23 * Lipid Panel 07/14/23 [facility] Future App[facility]ments Appointment Date:08/19/2023 11:45:00 AM Scheduled Provider:Troy Coulter MD [facility] Appointment Type:Cardiology Follow Up (FT) Appointment Date:09/01/2023 01:30:00 PM Scheduled Provider: Location:[facility] Appointment Type:Surgery FT Appointment Date:07/09/2024 08:00:00 AM Scheduled Provider: Location:[facility] Appointment Type:FM Medicare Wellness Subsequent Diagnostic Tests Pending * Microalbumin Level Urine 08/15/23 * U Protein/Creat Ratio 08/15/23 Future Scheduled Tests Laboratory* U Protein/Creat Ratio 07/14/23 * HgbA1c 07/14/23 * HgbA1c 07/26/23 * Microalbumin Level Urine 07/14/23 * CBC w/ Auto Diff 07/14/23 * Comprehensive Metabolic Panel 07/14/23 * Lipid Panel 07/14/23 [facility] App[facility]ments Appointment Date:09/01/2023 01:45:00 PM Scheduled Provider: Location:[facility] Appointment Type:Surgery FT Appointment Date:10/19/2023 12:00:00 PM Scheduled Provider:Troy Coulter MD [facility] Type:Cardiology Follow Up (FT) Appointment Date:07/09/2024 08:00:00 AM Scheduled Provider: Location:[facility] Appointment Type: Medicare Wellness Subsequent Future Scheduled Tests Laboratory* U Protein/Creat Ratio 2824 * HgbA1c 07/14/23 * HgbA1c 24 * Microalbumin Level Urine 07/14/23 * CBC w/ Auto Diff 07/14/23 * Comprehensive Metabolic Panel 07/14/23 * Lipid Panel 07/14/23 [facility] Future Appointments Appointment Date:10/19/2023 12:00:00 PM Scheduled Provider:Troy Coulter MD [facility] Type:Cardiology Follow Up (FT) Appointment Date:07/09/2024 08:00:00 AM Scheduled Provider: Location:[facility] Appointment Type:FM Medicare Wellness Subsequent Future Scheduled Tests Laboratory* U Protein/Creat Ratio 2824 * HgbA1c 24 * HgbA1c 24 * Microalbumin Level Urine 07/14/23 * CBC w/ Auto Diff 07/14/23 * Comprehensive Metabolic Panel 07/14/23 * Lipid Panel 07/14/23 [facility] Future Appointments Appointment Date:10/19/2023 12:00:00 PM Scheduled Provider:Troy Coulter MD [facility] Type:Cardiology Follow Up (FT) Appointment Date:01/10/2024 08:15:00 AM Scheduled Provider:Bryant TAO MD Location:[facility] Appointment Type:URO Office Visit Appointment Date:07/09/2024 08:00:00 AM Scheduled Provider: Location:[facility] Appointment Type: Medicare Wellness Subsequent Diagnostic Tests Pending * PSA Free & Total 12/05/23 Future Scheduled Tests Laboratory* U Protein/Creat Ratio 07/14/23 * HgbA1c 07/14/23 * HgbA1c 07/26/23 * Microalbumin Level Urine 07/14/23 * CBC w/ Auto Diff 07/14/23 * Comprehensive Metabolic Panel 07/14/23 * Lipid Panel 07/14/23 [facility] Evaluation + Plan note Future Appointments Appointment Date:11/22/2023 10:00:00 AM Scheduled Provider: Location:[facility] Appointment Type:Urology CALL PAT FT Appointment Date:11/28/2023 02:00:00 PM Scheduled Provider: Location:[facility] Appointment Type:Urology FT Appointment Date:11/28/2023 03:00:00 PM Scheduled Provider: Location:[facility] Appointment Type:Urology FT Appointment Date:12/16/2023 09:00:00 AM Scheduled Provider:Javier Goins MD [facility] Appointment Type:Cardiology Follow Up (FT) Appointment Date:01/10/2024 08:15:00 AM Scheduled Provider:Bryant TAO MD Location:[facility] Appointment Type:URO Office Visit Appointment Date:07/09/2024 08:00:00 AM Scheduled Provider: Location:[facility] Appointment Type:FM Medicare Wellness Subsequent Future Scheduled Tests Laboratory* U Protein/Creat Ratio 07/14/23 * HgbA1c 07/14/23 * HgbA1c 07/26/23 * Microalbumin Level Urine 07/14/23 * CBC w/ Auto Diff 07/14/23 * Comprehensive Metabolic Panel 07/14/23 * Lipid Panel 07/14/23 [facility] App[facility]ments Appointment Date:12/16/2023 09:00:00 AM Scheduled Provider:Javier Goins MD [facility] Appointment Type:Cardiology Follow Up (FT) Appointment Date:01/10/2024 08:15:00 AM Scheduled Provider:Bryant TAO MD Location:[facility] Appointment Type:URO Office Visit Appointment Date:07/09/2024 08:00:00 AM Scheduled Provider: Location:[facility] Appointment Type: Medicare Wellness Subsequent Future Scheduled Tests Laboratory* U Protein/Creat Ratio 24 * HgbA1c 07/14/23 * HgbA1c 24 * Microalbumin Level Urine 07/14/23 * CBC w/ Auto Diff 07/14/23 * Comprehensive Metabolic Panel 07/14/23 * Lipid Panel [facility]14[facility]23 [facility] Future App[facility]ments Appointment Date:01/10/2024 08:15:00 AM Scheduled Provider:Bryant TAO MD Location:[facility] Appointment Type:URO Office Visit Appointment Date:01/13/2024 09:00:00 AM Scheduled Provider:Javier Goins MD [facility] Appointment Type:Cardiology Follow Up (FT) Appointment Date:07/09/2024 08:00:00 AM Scheduled Provider: Location:[facility] Appointment Type:FM Medicare Wellness Subsequent Diagnostic Tests Pending * Urine Culture 12/22/23 Future Scheduled Tests Laboratory* U Protein/Creat Ratio 07/14/23 * HgbA1c 07/14/23 * HgbA1c 20 * Microalbumin Level Urine 07/14/23 * CBC w/ Auto Diff 07/14/23 * Comprehensive Metabolic Panel 07/14/23 * Lipid Panel [facility]/14/23 [facility] App[facility]ments Appointment Date:01/10/2024 08:15:00 AM Scheduled Provider:Bryant TAO MD Location:[facility] Appointment Type:URO Office Visit Appointment Date:01/13/2024 09:00:00 AM Scheduled Provider:Javier Goins MD [facility] Appointment Type:Cardiology Follow Up (FT) Appointment Date:07/09/2024 08:00:00 AM Scheduled Provider: Location:[facility] Appointment Type:FM Medicare Wellness Subsequent Diagnostic Tests Pending * Magnesium Level 12/22/23 Future Scheduled Tests Laboratory* U Protein/Creat Ratio 24 * HgbA1c 8/24 * HgbA1c 2/20/24 * Microalbumin Level Urine 07/14/23 * CBC w/ Auto Diff 07/14/23 * Comprehensive Metabolic Panel 07/14/23 * Lipid Panel 07/14/23 [facility] Future App[facility]ments Appointment Date:01/10/2024 08:15:00 AM Scheduled Provider:Bryant TAO MD Location:[facility] Appointment Type:URO Office Visit Appointment Date:01/13/2024 09:00:00 AM Scheduled Provider:Javier Goins MD Location:[facility] Appointment Type:Cardiology Follow Up (FT) Appointment Date:07/09/2024 08:00:00 AM Scheduled Provider: Location:[facility] Appointment Type: Medicare Wellness Subsequent Future Scheduled Tests Laboratory* U Protein/Creat Ratio 07/14/23 * HgbA1c 07/14/23 * HgbA1c 07/26/23 * Microalbumin Level Urine 07/14/23 * CBC w/ Auto Diff 07/14/23 * Comprehensive Metabolic Panel 07/14/23 * Lipid Panel 07/14/23 [facility] App[facility]ments Appointment Date:01/11/2024 08:00:00 AM Scheduled Provider: Location:[facility] Appointment Type:FM Lab Draw Appointment Date:01/13/2024 09:00:00 AM Scheduled Provider:Javier Goins MD Location:[facility] Appointment Type:Cardiology Follow Up (FT) Appointment Date:07/09/2024 08:00:00 AM Scheduled Provider: Location:[facility] Appointment Type: Medicare Wellness Subsequent Appointment Date:07/23/2024 08:15:00 AM Scheduled Provider:Bryant TAO MD Location:[facility] Appointment Type:URO Office Visit Diagnostic Tests Pending * PSA Free & Total 01/10/24 Future Scheduled Tests Laboratory* U Protein/Creat Ratio 07/14/23 * HgbA1c 07/14/23 * HgbA1c 07/26/23 * Microalbumin Level Urine 07/14/23 * CBC w/ Auto Diff 07/14/23 * Comprehensive Metabolic Panel 07/14/23 * Lipid Panel 07/14/23 * Magnesium Level 01/05/24 * Urine Culture 01/05/24 [facility] Evaluation + Plan note Future Appointments Appointment Date:01/13/2024 09:00:00 AM Scheduled Provider:Javier Goins MD [facility] Appointment Type:Cardiology Follow Up (FT) Appointment Date:07/09/2024 08:00:00 AM Scheduled Provider: Location:[facility] Appointment Type: Medicare Wellness Subsequent Appointment Date:07/23/2024 08:15:00 AM Scheduled Provider:Bryant TAO MD Location:[facility] Appointment Type:URO Office Visit Future Scheduled Tests Laboratory* U Protein/Creat Ratio 07/14/23 * HgbA1c 07/14/23 * HgbA1c 07/26/23 * Microalbumin Level Urine 07/14/23 * CBC w/ Auto Diff 07/14/23 * Comprehensive Metabolic Panel 07/14/23 * Lipid Panel 07/14/23 [facility] evaluation + Plan note Future Appointments Appointment Date:07/09/2024 08:00:00 AM Scheduled Provider: Location:[facility] Appointment Type: Medicare Wellness Subsequent Appointment Date:07/23/2024 08:15:00 AM Scheduled Provider:Bryant TAO MD Location:[facility] Appointment Type:URO Office Visit Future Scheduled Tests Laboratory* U Protein/Creat Ratio 07/14/23 * HgbA1c 07/14/23 * HgbA1c 07/26/23 * Microalbumin Level Urine 07/14/23 * CBC w/ Auto Diff 07/14/23 * Comprehensive Metabolic Panel 07/14/23 * Lipid Panel 07/14/23 [facility] evaluation + Plan note Future Appointments Appointment Date:07/24/2024 09:20:00 AM Scheduled Provider:TOSHIA Reddy APRN, [place] Location:[facility] Appointment Type:URO Office Visit Appointment Date:10/08/2024 08:15:00 AM Scheduled Provider:Nancy Grace MD Location:[facility] Appointment Type: Open Appointment Date:01/07/2025 08:15:00 AM Scheduled Provider:Nancy Grace MD Location:[facility] Appointment Type: Open Appointment Date:07/09/2025 08:00:00 AM Scheduled Provider: Location:[facility] Appointment Type:FM Medicare Wellness Subsequent Future Scheduled Tests Laboratory* U Protein/Creat Ratio 07/14/23 * HgbA1c 07/14/23 * HgbA1c 07/26/23 * Microalbumin Level Urine 07/14/23 * CBC w/ Auto Diff 07/14/23 * Comprehensive Metabolic Panel 07/14/23 * Lipid Panel 07/14/23 [facility] Evaluation + Plan note Future Appointments Appointment Date:08/21/2024 09:00:00 AM Scheduled Provider:TOSHIA Reddy APRN, [place] Location:[facility] Appointment Type:URO Office Visit Appointment Date:10/08/2024 08:15:00 AM Scheduled Provider:Nancy Grace MD Location:[facility] Appointment Type: Open Appointment Date:01/07/2025 08:15:00 AM Scheduled Provider:Nancy Grace MD Location:[facility] Appointment Type: Open Appointment Date:07/09/2025 08:00:00 AM Scheduled Provider: Location:[facility] Appointment Type:FM Medicare Wellness Subsequent Future Scheduled Tests Laboratory* U Protein/Creat Ratio 07/14/23 * HgbA1c 07/14/23 * HgbA1c 07/26/23 * Microalbumin Level Urine 07/14/23 * PSA Free & Total 07/24/24 * CBC w/ Auto Diff 07/14/23 * Comprehensive Metabolic Panel 07/14/23 * Lipid Panel 07/14/23 [facility] Evaluation + Plan note Future Appointments Appointment Date:08/21/2024 09:00:00 AM Scheduled Provider:TOSHIA Reddy APRN [place] X Location:[facility] Appointment Type:URO Office Visit Appointment Date:10/08/2024 08:15:00 AM Scheduled Provider:Nancy Grace MD Location:[facility] Appointment Type:FM Open Appointment Date:01/07/2025 08:15:00 AM Scheduled Provider:Nancy Grace MD Location:[facility] Appointment Type:FM Open Appointment Date:07/09/2025 08:00:00 AM Scheduled Provider: Location:[facility] Appointment Type: Medicare Wellness Subsequent [facility] evaluation + Plan note Future Appointments Appointment Date:09/03/2024 08:20:00 AM Scheduled Provider:RAMANDEEP OPRTER PA-C [facility]O Office Visit Appointment Date:10/08/2024 08:00:00 AM Scheduled Provider:Nancy Grace MD Location:[facility] Appointment Type:FM Open Appointment Date:01/07/2025 08:15:00 AM Scheduled Provider:Nancy Grace MD Location:[facility] Appointment Type:FM Open Appointment Date:07/09/2025 08:00:00 AM Scheduled Provider: Location:[facility] Appointment Type: Medicare Wellness [facility] evDisqusation + Plan note Future Appointments Appointment Date:10/08/2024 08:00:00 AM Scheduled Provider:Nancy Grace MD Location:[facility] Appointment Type:FM Open Appointment Date:01/07/2025 08:15:00 AM Scheduled Provider:Nancy Grace MD Location:[facility] Appointment Type:FM Open Appointment Date:07/09/2025 08:00:00 AM Scheduled Provider: Location:[facility] Appointment Type: Medicare Wellness [facility] evaluation + Plan note Future Appointments Appointment Date:01/07/2025 08:20:00 AM Scheduled Provider:Nancy Grace MD Location:[facility] Appointment Type:FM Open Appointment Date:03/27/2025 08:00:00 AM Scheduled Provider[facility]O Nurse Visit Appointment Date:04/01/2025 08:15:00 AM Scheduled Provider:Bryant TAO MD [facility]O Office Visit Appointment Date:07/09/2025 08:00:00 AM Scheduled Provider: Location:[facility] Appointment Type: Medicare Wellness Subsequent Future Scheduled Tests Laboratory* PSA Free & Total 09/25/24 * Magnesium Level 10/08/24 [facility] evaluation + Plan note Future Appointments Appointment Date:01/07/2025 08:20:00 AM Scheduled Provider:Nancy Grace MD [facility] Appointment Type: Open Appointment Date:03/27/2025 08:00:00 AM Scheduled Provider: Location:[facility] Appointment Type:URO Nurse Visit Appointment Date:04/01/2025 08:15:00 AM Scheduled Provider:Bryant TAO MD Location:[facility] [place] Appointment Type:URO Office Visit Appointment Date:07/09/2025 08:00:00 AM Scheduled Provider: Location:[facility] Appointment Type:FM Medicare Wellness Subsequent Diagnostic Tests Pending * Urine Culture 11/14/24 Future Scheduled Tests Laboratory* PSA Free & Total 09/25/24 * Magnesium Level 10/08/24 [facility] evaluation noteNo assessment information available [facility] Work Phone: evaluation note* Diagnosis Carpal tunnel syndrome on both sides- Primary Carpal tunnel syndrome Polyneuropathy Unspecified hereditary and idiopathic peripheral neuropathy [facility] Diagnosis Carpal tunnel syndrome of right wrist- Primary Pain of right hand [facility]* Diagnosis Encounter for other preprocedural examination [facility] Diagnosis Preop examination Unspecified pre-operative examination [facility]* Diagnosis S/P carpal tunnel release- Primary Other postprocedural status [facility]* Diagnosis S/P carpal tunnel release- Primary Other postprocedural status [facility] Narrative No data available for this section [facility] Discharge instructions No data available for this section [facility] Discharge instructions Additional Instructions DISCHARGE INSTRUCTIONS [...] your post-operative appointment in 1-2 weeks. [ ][facility] Work Phone: Hospital Discharge instructionsAmbulatory Orders* Referral to Gastroenterology Time Frame: 03/18/25, Location: None Selected [facility] Work Phone: InstructionsNot on filedocumented in this encounter [facility] No data available for this section [facility] Other Medical (Routine) - Closed Specialty Diagnoses / Procedures Referred By Nelly lopez Referred To Contact Neurology Diagnoses BUE EMG rt hand numbness in fingers, ref by Gustavo Kearns ANTHROPOLOGIST Procedures EMG Marino Kearns [facility] Medicine [address] [place] [address] Phone: tel: fax: Carlos Howe DO [address] [place] [id number] Phone: tel: fax: Referral ID Status Reason Start Date Expiration Date V isits Requested Visits Authorized [id number] Closed Perform Procedure 05/22/2024 11/18/2024 1 1 [facility] Healthcare Summary Purpose Family History Relationship Condition Age at Onset Recorded Date/T kamran Not Specified Diabetes mellitus Unknown Hypertension Unknown father Hypertension Unknown Malignant neoplasm of colon Unknown brother Hypertension Unknown Relationship Condition Age at Onset Recorded Date/T kamran mother Diabetes mellitus Unknown Hypertension Unknown father Hypertension Unknown Malignant neoplasm of colon Unknown brother Hypertension Unknown Advance Directives Advance Directive Response Recorded Date/ Time Advance Directives No April 01, 2017 10:34am Advance Directive Response Recorded Date/ Time Advance Directives No April 01, 2017 11:34am Chief Complaint and Reason for Visit Chief Complaint R97.20 Chief Complaint R97.20 R97.20 Chief Complaint R97.20 Elevated PSA Chief Complaint Admit Date Establish Care March 18, 2025 8 :01am Additional Source Comments (unrecognized sect ion and [...] and content) DATE CREATED AUTHOR 07/14/2022 [facility] DATE CREATED AUTHOR AUTHOR'S ORGANIZ ATION 09/19/2023 [facility] DATE CREATED AUTHOR AUTHOR'S ORGANIZ ATION 12/26/2023 [facility] DATE CREATED AUTHOR AUTHOR'S ORGANIZ ATION 12/27/2023 [facility] DATE CREATED AUTHOR AUTHOR'S ORGANIZ ATION 12/29/2023 [facility] DATE CREATED AUTHOR AUTHOR'S ORGANIZ ATION 12/30/2023 [facility] DATE CREATED AUTHOR AUTHOR'S ORGANIZ ATION 12/31/2023 [facility] DATE CREATED AUTHOR AUTHOR'S ORGANIZ ATION 01/03/2024 [facility] DATE CREATED AUTHOR AUTHOR'S ORGANIZ ATION 01/08/2024 [facility] DATE CREATED AUTHOR AUTHOR'S ORGANIZ ATION 02/01/2024 [facility] DATE CREATED AUTHOR AUTHOR'S ORGANIZ ATION 02/03/2024 [facility] DATE CREATED AUTHOR AUTHOR'S ORGANIZ ATION 02/24/2024 [facility] DATE CREATED AUTHOR AUTHOR'S ORGANIZ ATION 07/11/2024 [facility] DATE CREATED AUTHOR AUTHOR'S ORGANIZ ATION 07/18/2024 [facility] DATE CREATED AUTHOR AUTHOR'S ORGANIZ ATION 07/26/2024 [facility] DATE CREATED AUTHOR AUTHOR'S ORGANIZ ATION 08/10/2024 [facility] DATE CREATED AUTHOR AUTHOR'S ORGANIZ ATION 08/17/2024 [facility] DATE CREATED AUTHOR AUTHOR'S ORGANIZ ATION 08/23/2024 [facility] DATE CREATED AUTHOR AUTHOR'S ORGANIZ ATION 09/05/2024 [facility] DATE CREATED AUTHOR AUTHOR'S ORGANIZ ATION 09/25/2024 [facility] DATE CREATED AUTHOR AUTHOR'S ORGANIZ ATION 09/25/2024 [facility] DATE CREATED AUTHOR AUTHOR'S ORGANIZ ATION 10/11/2024 [facility] DATE CREATED AUTHOR AUTHOR'S ORGANIZ ATION 10/12/2024 [facility] DATE CREATED AUTHOR AUTHOR'S ORGANIZ ATION 11/16/2024 [facility] DATE CREATED AUTHOR AUTHOR'S ORGANIZ ATION 11/19/2024 [facility] DATE CREATED AUTHOR AUTHOR'S ORGANIZ ATION 01/09/2025 [facility] DATE CREATED AUTHOR AUTHOR'S ORGANIZ ATION 01/10/2025 [facility] DATE CREATED AUTHOR AUTHOR'S ORGANIZ ATION 02/02/2025 [facility] DATE CREATED AUTHOR AUTHOR'S ORGANIZ ATION 03/10/2025 [facility] DATE CREATED AUTHOR AUTHOR'S ORGANIZ ATION 03/11/2025 [facility] DATE CREATED AUTHOR AUTHOR'S ORGANIZ ATION 03/13/2025 [facility] DATE CREATED AUTHOR AUTHOR'S ORGANIZ ATION 03/18/2025 [facility] Patient Care team informatio n (unrecognized [...] September 09, 2023 End: September 09, 2023 Higher Education Administrator Relationship Specialty Start Date End Date Nancy Grace MD [address] [place] [address] PCP - General Family Medicine 07/18/24 Higher Education Administrator Relationship Specialty Start Date End Date Nancy Grace MD [address] [place] [address] PCP - General Family Medicine 07/18/24 Higher Education Administrator Relationship Specialty Start Date End Date Tyrese Mcgrath MD PCP - General Family Medicine 02/27/18 Higher Education Administrator Relationship Specialty Start Date End Date Nancy Grace MD [address] [place] [address] PCP - General Family Medicine 07/18/24 Higher Education Administrator Relationship Specialty Start Date End Date Nancy Grace MD [address] [place] [address] PCP - General Family Medicine 07/18/24 Higher Education Administrator Relationship Specialty Start Date End Date Nancy Grace MD [address] [place] [address] PCP - General Family Medicine 07/18/24 Higher Education Administrator Relationship Specialty Start Date End Date Nancy Grace MD [address] [place] [address] PCP - General Family Medicine 07/18/24 Higher Education Administrator Relationship Specialty Start Date End Date Nancy Grace MD [address] [place] [address] PCP - General Family Medicine 07/18/24 Higher Education Administrator Relationship Specialty Start Date End Date Nancy Grace MD [address] [place] [address] PCP - General Family Medicine 07/18/24 Team Status: Active Member Role Status Dates Ivania Parada DO Primary Care Provider Active Team Status: Inactive Member Role Status Dates Ivania Parada DO Primary Care Provider Active S tart: March 18, 2025 End: March 18, 2025 Ivania Parada DO Attending Provider Active Star t: March 18, 2025 End: March 18, 2025 Goals (unrecognized section and content) Goals may be documented in a n alternate section Reason for Visit (unrecogniz ed section and content) Reason Comments Pain Reason Comments Pre-op Exam Reason Comments Post-op FOR RECORDS PERTAINING TO PATIENTS WHO ARE [...] BE BASED ON THE PRIMARY CLINICAL RECORDS. [facility] [employer] [facility]. provides no warranty or guarantee of the accuracy or completeness of information in this document.
[2025-03-21 04:07] LABS: PSA, Free 0.35 ng/mL
== END 2025-03-20 06:14 | disposition home or self-care (01) ==
LOC: LAB 06:13
PROVIDERS: PCP Nurse Practitioner Family; Visit Provider Urology
DX: R97.20 Elevated prostate specific antigen [PSA] (principal)
CPT/HCPCS: 36415; 84153; 84154

== ENCOUNTER 2025-03-20 06:17 | Outpatient (OUT) | payer MEDICARE, OTHER, SELFPAY ==
--- OUTSIDE RECORDS SUMMARY | 2025-03-20 06:20 | XMS_ITS | Clinical Summary ---
Author Organization [facility] tem Address [id number] [facility] [place] [id number] Care Team Providers Care Press Tool Maker Name Role Phone Cori Mcgrath MD Primary Care Provider [phone] Social History Tobacco Use Types Packs/Day Years Used Date Smoking Tobacco: Never Assessed Childcare Answer Date Recorded Childcare Unknown 11/15/2018 Employment Answer Date Recorded Employment Unknown 11/15/2018 Purpose - Life Answer Date Recorded Purpose and direction in life Unknown Sex and Gender Information Value Date Recorded Sex Assigned at Not on file Legal Sex Male 12:04 PM EDT Gender Identity Not on file Sexual Orientation Not on file Plan of Treatment Health Maintenance Due Date Last Done Comments Depression Screening 1966 Tobacco Screening 1966 Adult BMI Screening 1972 DTaP,Tdap and Td Vaccines (1 - Tdap) 1973 Zoster (Shingles) Vaccine (1 of 2) 2004 Fall Risk Screening 2019 COVID-19 Vaccine (6 2024-2 6 season) 2025 03/20/2024, 03/20/2024, 03/16/2023, Additional history exists Influenza Vaccine 02/04/2025 03/20/2024, , 04/05/2022, Additional history exists Medical Devices Not on file Insurance [employer] Care Teams Press Tool Maker Relationship Specialty Start Date End Date Cori Mcgrath MD PCP - General Family Medicine 02/27/18
--- OUTSIDE RECORDS SUMMARY | 2025-03-20 06:20 | XMS_ITS | Clinical Summary ---
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 Name Role Phone Unavailable Primary Care Provider Unavailabl e Allergies No known active allergies Medications No known medications Active Problems No known active problems Social History Tobacco Use Types Packs/Day Years Used Date Smoking Tobacco: Never Assessed Smokeless Tobacco: Current Sex and Gender Information Value Date Recorded Sex Assigned at Not on file Legal Sex Male 6:17 PM EST Gender Identity Not on file Sexual Orientation Not on file Last Filed Vital Signs Vital Sign Reading Time Taken Comments Blood Pressure - - Pulse - - Temperature - - Respiratory Rate - - Oxygen Saturation - - Inhaled Oxygen Concentration - - Weight 99.8 kg (220 lb) 08/09/2017 9:40 AM EST Height 176.5 cm (5' 9.5 ) 08/09/2017 9:40 AM EST Body Mass Index 32.02 08/09/2017 9:40 AM EST Plan of Treatment Not on file Insurance [employer]
--- OUTSIDE RECORDS SUMMARY | 2025-03-20 06:20 | XMS_ITS | Clinical Summary ---
Author Organization [facility] Address [address] [place] [address] Care Team Providers Care Global Category Manager Name Role Phone Jose Melchor MD Primary Care Provider [phone] Allergies Active Allergy Reactions Criticality Noted Date Comments Celecoxib Anxiety,Unknown Low 08/14/2024 Medications magnesium oxide (Mag-Ox) 400 MG tablet Take 400 mg by mouth 02/20/2024 Active metFORMIN (Glucophage) 500 MG tablet every 12 (twelve) hours Active metoprolol succinate XL (Toprol-XL) 25 MG 24 hr tablet Take 25 mg by mouth Daily Active Naproxen Sodium (ALEVE PO) Take 220 mg by mouth 01/13/2024 Active omeprazole (PriLOSEC) [address] capsule Take 20 mg by mouth Daily 05/18/2024 Active tamsulosin (Flomax) 0.4 MG 24 hr capsule Take 0.4 mg by mouth 05/07/2024 Active amLODIPine (Norvasc) 5 MG tablet Take by mouth Daily Active lisinopril 40 MG tablet Take 40 mg by mouth Daily Active Active Problems No known active problems Family History Relation Name Status Comments Father Mother Social History Tobacco Use Types Packs/Day Years Used Date Smoking Tobacco: Former Cigarettes Smokeless Tobacco: Never Tobacco Cessation:Counseling Given: Not Answered Alcohol Use Standard Drinks/Week Comments Yes 0 (1 standard drink = 0.6 oz pur e alcohol) 2 BEERS/WK Sex and Gender Information Value Date Recorded Sex Assigned at Not on file Legal Sex Male 6:34 PM EDT Gender Identity Not on file Sexual Orientation Not on file Last Filed Vital Signs Vital Sign Reading Time Taken Comments Blood Pressure 164/94 03/13/2018 12:00 PM EDT Pulse - - Temperature - - Respiratory Rate - - Oxygen Saturation - - Inhaled Oxygen Concentration - - Weight 115 kg (253 lb) 08/14/2024 2:01 PM EDT Height 175.3 cm (5' 9 ) 08/14/2024 2:01 PM EDT Body Mass Index 37.36 08/14/2024 2:01 PM EDT Plan of Treatment Health Maintenance Due Date Last Done Comments CT Colonography 1954 Colonoscopy 1954 FIT 1954 FOBT 1954 Sigmoidoscopy 1954 Pneumococcal Vaccine: 65+ Ye ars (2 of 2 - PCV20 or PCV21) 03/09/2021 03/09/2020 Colorectal Cancer Screening 02/14/2024 FIT-DNA 02/14/2024 02/13/2021 Influenza Vaccine (#1) 2025 , 03/16/2023, 04/05/2022, Additional history exists Insurance MEDICARE MED[employer] PAW PAW Care Teams Global Category Manager Relationship Specialty Start Date End Date Jose Melchor MD [address] [place] [address] PCP - General Family Medicine 07/18/24
--- OUTSIDE RECORDS SUMMARY | 2025-03-20 06:20 | XMS_ITS | Clinical Summary ---
Author Organization [facility] Address [address] [place] [address] Phone Care Team Providers Care Gamma Operator Name Role Phone Unavailable Primary Care Provider Unavailabl e Social History Tobacco Use Types Packs/Day Years Used Date Smoking Tobacco: Never Assessed Sex and Gender Information Value Date Recorded Sex Assigned at Not on file Legal Sex Male 11:54 PM EST Gender Identity Not on file Sexual Orientation Not on file Plan of Treatment Health Maintenance Due Date Last Done Comments CT Colonography 1954 Colonoscopy 1954 Colorectal Cancer Screening 1954 FIT-DNA (Cologuard) 1954 FIT 1954 Lipid Panel 1954 Medicare Annual Wellness Vis it (AWV) 1954 Sigmoidoscopy 1954 MMR Vaccines (1 of 1 - Stand suni series) 1955 Hepatitis C Screening 1972 DTaP/Tdap/Td Vaccines (1 - Tdap) 1976 Pneumococcal Vaccine (1 of 1 - PCV) 2004 Zoster Vaccines (1 of 2) 2004 COVID-19 Vaccine (1 - 2023-2 5 season) 2025 Influenza Vaccine (#1) 2025 RSV High Risk: (Elderly (60+ ) or Population) (1 - 1-dose 75+ series) 2029 HIB Vaccines Aged Out No longer eligi ble based on patient's age to complete this topic HPV Vaccines Aged Out No longer eligi ble based on patient's age to complete this topic Hepatitis A Vaccines Aged Out No long er eligible based on patient's age to complete this topic Hepatitis B Vaccines Aged Out No long er eligible based on patient's age to complete this topic IPV Vaccines Aged Out No longer eligi ble based on patient's age to complete this topic Meningococcal Vaccine Aged Out No jerardo karissa eligible based on patient's age to complete this topic Rotavirus Vaccines Aged Out No longer eligible based on patient's age to complete this topic Insurance MEDICARE PART A AND B [facility] MEDICARE SUPPLEMENT
--- OUTSIDE RECORDS SUMMARY | 2025-03-20 06:21 | XMS_ITS | CCD ---
Author Organization [facility] Care Team Providers Care Application Penetration Tester Name Role Phone DR TYRESE MCGRATH Admitting Unavailable DR TYRESE MCGRATH Attending Unavailable DR TYRESE MCGRATH Primary Care Unavailable DR TYRESE MCGRATH Consulting Unavailable Nancy Grace Primary Care Physician [phone] GINO Porter Attending Provider MD Nancy Grace Primary Care Provider [phone] MD Nancy Grace Primary Care Provider GINO Porter Attending Provider MD Bryant Tao Attending Provider [phone] Nancy Grace Primary Care Unavailable Bryant Tao Admitting Unavailable Bryant Tao Attending Unavailable Ramandeep Porter Admitting Unavailable Ramandeep Porter Attending Unavailable Nancy Grace Primary Care Unavailable MARINO KEARNS Attending Unavailable MARINO KEARNS Admitting Unavailable Nancy Grace Attending Unavailable Nancy Grace Attending Unavailable Nancy Grace Admitting Unavailable Ok, Ramos Consulting Unavailable Artemio Olivares Admitting Unavailable Artemio Olivares Attending Unavailable MD Nancy Graec Admitting Unavailable MD Nancy Grace Attending Unavailable [...] Unavailable Nancy Grace MD Primary Care Provider [phone] Estefania Reddy Attending Unavailable Nancy Grace Attending Unavailable Nancy Grace EMalgorzata Admitting Unavailable Nancy Grace EMalgorzata Admitting Unavailable Nancy Grace Attending Unavailable Tyrese Mcgrath MD Primary Care Provider [phone] NONE, XXXX Referring Unavailable MD Javier Goins Attending Unavailable COOK Bryant P Attending Unavailable Nancy Grace Attending Unavailable Nancy Grace Attending Unavailable SHIRA, 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 MARINO A Attending Unavailabl e COOK, Bryant P Attending Unavailable COOK, Bryant P Attending Unavailable COOK Bryant P Attending Unavailable COOK, Bryant P Referring Unavailable COOK, Bryant P Admitting Unavailable COOK, Bryant P Referring Unavailable COOK, Bryant P Admitting Unavailable COOK, Bryant P Attending Unavailable SHIRA, 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 MARINO A Admitting Unavailabl e SHIRA, 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 MARINO A Attending Unavailabl e Nancy Grace Admitting Unavailable Nancy Grace. Attending Unavailable SHIRA, 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 MARINO A Admitting Unavailabl e SHIRA, 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 MARINO A Attending Unavailabl e Jacinto Ramirez [...] Unavailabl e Nancy Grace Attending Unavailable SHIRA, 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 MARINO A Admitting Unavailabl e SHIRA, 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 MARINO A Attending Unavailabl e SHIRA, 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 MARINO A Attending Unavailabl e SHIRA, MARINO [...] Unavailable SHIRA, MARINO A Attending Unavailable SHIRA, 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 MARINO A Attending Unavailabl e SHIRA, 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 MARINO A Admitting Unavailabl e Bryant TAO Attending Unavailable Bryant TAO Attending Unavailable Nancy Grace Attending Unavailable Nancy Grace Admitting Unavailable GINO PORTER Attending Unavailab le GINO PORTER Admitting Unavailab le Ivania Parada DO Primary Care Provider Ivania Parada DO Attending Provider Allergies Allergy Classification Reported Allergen(s) Allergy Type Date of Onset Reaction(s) Facility (20 sources) celecoxib; Translations: [CeleBREX] Drug Allergy [facility] (1 source) Cetirizine Drug Allergy [facility] (20 sources) celecoxib; Translations: [celecoxib] Drug Allergy Unknown (qualifier value), Anxiety (finding) [facility] (10 sources) celecoxib Drug Allergy Anxiety, Unknown [facility] Medications Current Medications Medication Drug Class(es) Dates Sig (Normalized) Sig (Original) 0.25 MG, 0.5 MG Dose 3 ML semaglutide 0.68 MG/ML Pen Injector [Ozempic] (4 sources) Start: 07-16-2024 Ozempic 2 mg/3 mL (0.25 mg or 0.5 mg dose) subcutaneous solution 0.25 mg, SubCutaneous, qWeek, # 3 mL, Refills(s) 0, Pharmacy: [facility] #[id number], 175.3, cm, 07/16/24 8:18:00 EST, Height/Length [...] qWeek, # 3 mL, Refills(s) 0, Pharmacy: [id number], 175.3, cm, 07/16/24 8:18:00 EST, Height/Length [...] DAILY, # 90 tab(s), Refills(s) 3, Pharmacy: [email or web address], 174, cm, 10/08/24 7:59:00 EDT, Height/Length Dosing, 113, kg, 10/08/24 7:59:00 EDT, Weight Dosing Start Date: 10/16/24 Status: Ordered Quantity: 90.0 Unit: tab(s) Repeat number: 1 Start: 09-09-2023 take 10 mg by mouth once daily Amlodipine Active 10 MG PO Daily September 09, 2023 12:00am Start: 08-19-2023 take 2 tablets by mo [facility] once daily Amlodipine 5 mg tablet Active 10 MG PO Daily September 09, 2023 12:00am Complies with drug therapy Start: 08-15-2023 amLODIPine 5 m g Tab See Instructions, TAKE 1 TABLET DAILY, # 90 tab(s), Refills(s) 1, Pharmacy: [email or web address], 175.3, cm, 01/13/24 9:06:00 EDT, Height/Length Dosing, 110.9, kg, 01/13/24 9:06:00 EDT, Weight Dosing Start Date: 01/30/24 Status: Ordered amoxicillin 500 mg oral capsule (2 sources) Penicillin-class Antibacterial Start: 01-05-2024 take 1 capsule by mouth every twelve hours amoxicillin 500 mg Cap 500 mg = 1 cap(s), Oral, q12hr, # 20 cap(s), Refills(s) 0, Pharmacy: [facility]/pharmacy #[id number], 175.3, cm, 01/05/24 7:50:00 EDT, Height/Length Dosing, 110, kg, 01/05/24 7:50:00 EDT, Weight Dosing Start Date: 01/05/24 Status: Ordered aspirin 81 mg delayed release oral tablet (19 sources) Platelet Aggregation Inhibitor, Nonsteroidal Anti-inflammatory Drug Start: 06-13-2023 take 1 tablet by mouth once daily aspirin 81 mg Oral EC Tab 81 mg = 1 tab(s), Oral, Daily, # 90 tab(s), Refills(s) 0, Pharmacy: [facility], 174.5, cm, 06/13/23 8:07:00 EST, Height/Length [...] DAILY, # 90 tab(s), Refills(s) 3, Pharmacy: [email or web address], 175.3, cm, 07/09/24 8:31:00 EST, Height/Length Dosing, 114.2, kg, 07/09/24 8:31:00 EST, Weight Dosing Start Date: 07/10/24 Status: Ordered Quantity: 90.0 Unit: tab(s) Repeat number: 1 Start: 06-13-2023 take 1 tablet by marly th once daily atorvastatin 40 mg Tab 40 mg = 1 tab(s), Oral, Daily, # 90 tab(s), Refills(s) 1, Pharmacy: [facility], 174.5, cm, 06/13/23 8:07:00 EST, Height/Length Dosing, 102.3, kg, 06/13/23 8:07:00 EST, Weight Dosing Start Date: 06/13/23 Status: Ordered Start: 02-14-2023 take 1 tablet by marly th at bedtime atorvastatin 20 mg Tab 20 mg = 1 tab(s), Oral, Bedtime, # 90 tab(s), Refills(s) 1, Pharmacy: [facility], 174.5, cm, 02/14/23 7:27:00 [...] day(s), # 14 tab(s), Refills(s) 0, [id number] 174, cm, 11/14/24 10:26:00 EDT, [...] day(s), # 14 tab(s), Refills(s) 0, Pharmacy: [email or web address], 172, cm, 12/22/23 7:41:00 EDT, Height/Length Dosing, 107.8, kg, 12/22/23 7:41:00 EDT, Weight Dosing Start Date: 12/22/23 Stop Date: 12/29/23 Status: Ordered Start: 09-27-2023 Cipro 500 mg T ab See Instructions, Take 1 tab day prior to procedure and 1 tab day of procdure - afterwards, # 2 tab(s), Refills(s) 0, [id number] 174.5, cm, 09/22/23 12:37:00 EDT, Height/Length Dosing, 105.9, kg, 09/22/23 12:37:00 EDT, Weight Dosing Start Date: 09/27/23 Status: Ordered Start: 08-03-2023 take 1 tablet by marly th twice daily Cipro 500 mg Tab 500 mg = 1 tab(s), Oral, BID, start 3 days prior to procedure, # 14 tab(s), Refills(s) 0, Pharmacy: [facility]/pharmacy #[id number], 174.5, cm, 07/27/23 11:17:00 EST, Height/Length Dosing, 102.3, kg, 07/27/23 11:17:00 EST, Weight Dosing Start Date: 08/03/23 Status: Ordered Start: 06-28-2023 Cipro 500 mg T ab See Instructions, Take 1 tab day prior to procedure and 1 tab day of procdure - afterwards, # 2 tab(s), Refills(s) 0, Pharmacy: [facility]/pharmacy #[id number], 175.4, cm, 06/28/23 7:53:00 EST, Height/Length [...] BID, # 180 tab(s), Refills(s) 0, Pharmacy: [facility], 172, cm, 12/27/23 7:51:00 EDT, Height/Length Dosing, 109.8, kg, 12/27/23 7:51:00 EDT, Weight Dosing Start Date: 12/27/23 Status: Ordered Freestyle Alejandra 2 Flash Glucose Monitoring 14 Day System (Lindsey) (6 sources) Start: 02-14-2023 Freestyle Alejandra 2 Flash Glucose Monitoring 14 Day System (Lindsey) Freestyle Alejandra 2 Flash Glucose Monitoring 14 Day System (Lindsey), See Instructions, 1 EA, 0, Freestyle Alejandra Flash Glucose Monitoring 14 Day System (Lindsey), [id number], Supply, 174.5, cm, 02/14/23 7:27:00 EDT, [...] System (Sensor). Replace sensor every 14 days., [id number], Supply, 174.5, cm, 02/14/23 7:27:00 EDT, [...] day(s), # 10 tab(s), Refills(s) 0, Pharmacy: [facility]/pharmacy #[id number], 172, cm, 12/29/23 13:54:00 EDT, Height/Length [...] Daily, # 90 tab(s), Refills(s) 4, Pharmacy: [email or web address], 175.3, cm, 01/13/24 9:06:00 EDT, [...] BID, # 360 tab(s), Refills(s) 3, Pharmacy: [facility], 174, cm, 10/08/24 7:59:00 EDT, Height/Length Dosing, 113, kg, 10/08/24 7:59:00 EDT, Weight Dosing Start Date: 10/08/24 Status: Ordered Quantity: 360.0 Unit: tab(s) Repeat number: 4 Start: 04-12-2024 take 2 tablets by mo uth twice daily Glucophage XR 500 mg Tab-ER 1,000 mg = 2 tab(s), Oral, BID, # 360 tab(s), Refills(s) 1, Pharmacy: [facility], 175.3, cm, 01/13/24 9:06:00 EDT, Height/Length Dosing, 110.9, kg, 01/13/24 9:06:00 EDT, Weight Dosing Start Date: 04/12/24 Status: Ordered Start: 07-26-2023 take 2 tablets by mo uth twice daily Glucophage XR 500 mg Tab-ER 1,000 mg = 2 tab(s), Oral, BID, # 360 tab(s), Refills(s) 1, Pharmacy: [facility], 174, cm, 07/26/23 10:21:00 EST, Height/Length Dosing, 104.8, kg, 07/26/23 10:21:00 EST, Weight Dosing Start Date: 07/26/23 Status: Ordered Start: 06-13-2023 take 2 tablets by [facility] twice daily Glucophage XR 500 mg Tab-ER 1,000 mg = 2 tab(s), Oral, BID, # 360 tab(s), Refills(s) 1, Pharmacy: [facility], 174.5, cm, 06/13/23 8:07:00 EST, Height/Length Dosing, 102.3, kg, 06/13/23 8:07:00 EST, Weight Dosing Start Date: 06/13/23 Status: Ordered Start: 11-15-2022 End: 11-10-2023 take 2 tablets by mouth once daily metformin 500 mg Tab 1,000 mg = 2 tab(s), Oral, Daily, X 90 day(s), # 180 tab(s), Refills(s) 3, Pharmacy: [facility] Start Date: 11/15/22 Stop [...] 09, 2023 12:00am Complies with drug therapy [facility] [place] (20 sources) Start: 05-26-2023 Start: 05-26-2023 [facility] Presc ription [facility] Prescription, See Instructions, 1 kit(s), 0, One Touch Ultra 2 glucose meter kit Use to tests sugars daily E11.9, [facility], Supply, 174.5, cm, 05/26/23 [...] DAY, # 90 cap(s), Refills(s) 4, Pharmacy: [facility]/pharmacy #[id number], 174, cm, 09/03/24 8:26:00 EDT, Height/Length [...] DAILY, # 90 cap(s), Refills(s) 1, Pharmacy: [email or web address], 172, cm, 10/19/23 8:14:00 EDT, Height/Length Dosing, 108.4, kg, 10/19/23 8:26:00 EDT, Weight Dosing Start Date: 11/14/23 Status: Ordered Start: 07-26-2023 take 1 capsule by mo uth once daily omeprazole 40 mg Cap-DR 40 mg = 1 cap(s), Oral, Daily, # 90 cap(s), Refills(s) 0, Pharmacy: [email or web address], 174, cm, 07/26/23 10:21:00 EST, Height/Length Dosing, 104.8, kg, 07/26/23 10:21:00 EST, Weight Dosing Start Date: 07/26/23 Status: Ordered Start: 01-20-2023 take 1 capsule by mo uth once daily omeprazole 40 mg Cap-DR 40 mg = 1 cap(s), Oral, Daily, # 90 cap(s), Refills(s) 0, Pharmacy: [facility], 174.5, cm, 06/21/23 13:33:00 EST, Height/Length [...] DAY, # 90 cap(s), Refills(s) 3, Pharmacy: [email or web address], 172, cm, 10/19/23 8:14:00 EDT, Height/Length Dosing, 108.4, kg, 10/19/23 8:26:00 EDT, Weight Dosing Start Date: 10/19/23 Status: Ordered Quantity: 90.0 Unit: cap(s) Repeat number: 4 Start: 09-09-2023 End: 03-18-2025 take 1 capsule by mouth once daily potassium chloride 10 mEq Cap-ER See Instructions, TAKE 1 CAPSULE BY MOUTH EVERY DAY, # 90 cap(s), Refills(s) 1, Pharmacy: [id number], 172, cm, 08/19/23 11:59:00 EDT, Height/Length Dosing, 106, kg, 08/19/23 11:59:00 EDT, Weight Dosing Start Date: 09/13/23 Status: Ordered Start: 08-18-2023 take 1 capsule by [facility] once daily potassium chloride 10 mEq Cap-ER 10 mEq = 1 cap(s), Oral, Daily, # 30 cap(s), Refills(s) 0, Pharmacy: [facility]acy #[id number], 172, cm, 08/15/23 7:04:00 EDT, Height/Length Dosing, 107.2, kg, 08/15/23 7:04:00 EDT, Weight Dosing Start Date: 08/18/23 Status: Ordered Start: 06-15-2023 take 1 capsule by [facility] once daily potassium chloride 10 mEq Cap-ER 10 mEq = 1 cap(s), Oral, Daily, # 30 cap(s), Refills(s) 0, [id number], 175, cm, 06/14/23 10:52:00 EST, Height/Length Dosing, 102.3, kg, 06/14/23 10:52:00 EST, Weight Dosing Start Date: 06/15/23 Status: Ordered Start: 05-26-2023 End: 06-02-2023 take 1 tablet by mouth twice daily Potassium Chloride (Eqv-K-Tab) 20 mEq oral tablet, extended release 20 mEq = 1 tab(s), Oral, BID, X 7 day(s), # 14 tab(s), Refills(s) 0, [id number], 174.5, cm, 05/26/23 9:14:00 EST, [...] Start: 05-07-2024 take 1 capsule by [facility] every twenty-four hours tamsulosin (Flomax) 0.4 MG 24 hr capsule Take 0.4 mg by mouth 05/07/2024 Active Start: 05-07-2024 take 1 capsule by [facility] once daily in the evening tamsulosin 0.4 mg Cap 0.4 mg = 1 cap(s), Oral, qPM, # 90 cap(s), Refills(s) 4, Pharmacy: [facility], 175.3, cm, 01/13/24 9:06:00 EDT, Height/Length Dosing, 110.9, kg, 01/13/24 9:06:00 EDT, Weight Dosing Start Date: 05/07/24 Status: Ordered Quantity: 90.0 Unit: cap(s) Repeat number: 5 Start: 01-20-2024 take 1 capsule by [facility] once daily in the evening tamsulosin 0.4 mg Cap 0.4 mg = 1 cap(s), Oral, qPM, # 90 cap(s), Refills(s) 3, Pharmacy: [facility], 175.3, cm, 01/13/24 9:06:00 EDT, Height/Length Dosing, 110.9, kg, 01/13/24 9:06:00 EDT, Weight Dosing Start Date: 01/20/24 Status: Ordered Start: 06-14-2023 take 1 capsule by mo [facility] once daily in the evening tamsulosin 0.4 [...] Daily, # 90 tab(s), Refills(s) 0, Pharmacy: [facility], 175.3, cm, 01/13/24 9:06:00 EDT, Height/Length Dosing, 110.9, kg, 01/13/24 9:06:00 EDT, Weight Dosing Start Date: 01/26/24 Status: Ordered Start: 12-30-2023 take 1 tablet by marly th once daily cyanocobalamin 1000 mcg Tab 1,000 mcg = 1 tab(s), Oral, Daily, # 30 tab(s), Refills(s) 0, Pharmacy: [facility] #[id number], 172, cm, 12/29/23 13:54:00 EDT, Height/Length Dosing, 109.8, kg, 12/29/23 13:54:00 EDT, Weight Dosing Start Date: 12/30/23 Status: Ordered Zofran ODT 4 mg Tab-Dis (14 sources) Start: 08-15-2023 take 1 tablet by mouth every eight hours as needed for nausea Zofran ODT 4 mg Tab-Dis 4 mg = 1 tab(s), Oral, q8hr, PRN Nausea/Vomiting, # 12 tab(s), Refills(s) 0, Pharmacy: [facility] #[id number], 172, cm, 08/15/23 7:04:00 EDT, Height/Length Dosing, 107.2, kg, 08/15/23 7:04:00 EDT, Weight Dosing Start Date: 08/15/23 Status: Ordered Start: 07-13-2023 take 1 tablet by marly th every eight hours as needed for nausea Zofran ODT 4 mg Tab-Dis 4 mg = 1 tab(s), Oral, q8hr, PRN Nausea/Vomiting, # 12 tab(s), Refills(s) 0, [id number], 175.4, cm, 06/28/23 7:53:00 EST, [...] completed., # 2 cap(s), Refills(s) 0, [id number], 174.5, cm, 09/22/23 12:37:00 EDT, Height/Length Dosing, 105.9, kg, 09/22/23 12:37:00 EDT, Weight Dosing Start Date: 09/22/23 Status: Ordered Start: 05-26-2023 End: 06-02-2023 take 1 capsule by mouth four times daily Keflex 250 mg Cap 250 mg = 1 cap(s), Oral, QID, X 7 day(s), # 28 cap(s), Refills(s) 0, [id number], 174.5, cm, 05/26/23 9:14:00 EST, Height/Length Dosing, 109.1, kg, 05/26/23 9:14:00 EST, Weight Dosing Start Date: 05/26/23 Stop Date: 06/02/23 Status: Ordered Start: 05-16-2023 End: 05-23-2023 take 1 capsule by mouth four times daily Keflex 250 mg Cap 250 mg = 1 cap(s), Oral, QID, X 7 day(s), # 28 cap(s), Refills(s) 0, Pharmacy: [facility], 174.5, cm, 05/16/23 7:26:00 [...] 11:39am docusate sodium 50 mg / sennosides, assisted 8.6 mg oral tablet (4 sources) Start: [...] Start: 05-18-2024 take 1 capsule by mo [facility] once daily at bedtime gabapentin 100 mg Cap 100 mg = 1 cap(s), Oral, Once a day (at bedtime), # 30 cap(s), Refills(s) 0, Pharmacy: [facility] #[id number], 175.3, cm, 05/18/24 7:58:00 EST, Height/Length [...] Start: 05-26-2023 take 2 tablets by [facility] twice daily glipiZIDE 5 mg Tab 10 mg = 2 tab(s), Oral, BID, # 360 tab(s), Refills(s) 1, Pharmacy: [facility], 174.5, cm, 05/26/23 9:14:00 EST, Height/Length Dosing, 109.1, kg, 05/26/23 9:14:00 EST, Weight Dosing Start Date: 05/26/23 Status: Ordered Start: 05-16-2023 take 1 tablet by [facility] twice daily glipiZIDE 5 mg Tab 5 mg = 1 tab(s), Oral, BID, # 90 tab(s), Refills(s) 1, Pharmacy: [facility], 174.5, cm, 05/16/23 7:26:00 EST, Height/Length Dosing, 113.4, kg, 05/16/23 7:26:00 EST, Weight Dosing Start Date: 05/16/23 Status: Ordered Start: 02-14-2023 take 1 tablet by marly th once daily glipiZIDE 5 mg Tab 5 mg = 1 tab(s), Oral, Daily, # 90 tab(s), Refills(s) 1, Pharmacy: [facility], 174.5, cm, 02/14/23 7:27:00 [...] DAY, # 90 tab(s), Refills(s) 0, Pharmacy: [facility]/pharmacy #[id number], 174, cm, 11/14/24 10:26:00 EDT, Height/Length [...] 01/11/24-, # 90 tab(s), Refills(s) 3, Pharmacy: [facility], 175.3, cm, 01/13/24 9:06:00 EDT, Height/Length Dosing, 110.9, kg, 01/13/24 9:06:00 EDT, Weight Dosing Start Date: 01/30/24 Status: Ordered Start: 12-30-2023 take 1 tablet by marly twice daily magnesium oxide 400 mg Tab 400 mg = 1 tab(s), Oral, BID, # 60 tab(s), Refills(s) 0, Pharmacy: [facility]acy #[id number], 172, cm, 12/29/23 13:54:00 EDT, Height/Length Dosing, 109.8, kg, 12/29/23 13:54:00 EDT, Weight Dosing Start Date: 12/30/23 Status: Ordered Start: 08-18-2023 take 1 tablet by [facility] once daily magnesium oxide 400 mg Tab 400 mg = 1 tab(s), Oral, Daily, # 60 tab(s), Refills(s) 0, Pharmacy: [facility], 172, cm, 12/22/23 7:41:00 EDT, Height/Length Dosing, 107.8, kg, 12/22/23 7:41:00 EDT, Weight Dosing Start Date: 12/22/23 Status: Ordered Start: 06-15-2023 take 1 tablet by [facility] once daily magnesium oxide 400 mg Tab 400 mg = 1 tab(s), Oral, Daily, # 60 tab(s), Refills(s) 0, Pharmacy: [facility]/pharmacy #[id number], 175, cm, 06/14/23 10:52:00 EST, Height/Length [...] current use of drug therapy; Translations: [Other custodial (current) drug therapy] Onset: 12-29-2023 Episodic Other [...] Locations R1: This test was performed at: [facility], [address] [place] [address], [id number]- , [place], Normal [facility] Comment on above: Performed By: #### [id number] #### [facility] [address] [place] [id number] Magnesiumon 03-04-2025 Magnesium [Mass/Vol] 0.5 mg/dL Abnormal 1.3-2.4 Fish [facility] Comment on above: Result Comment: Crit ical Result Verified by Repeat Analysis Critical Result S_M.5 Called to and read back by: DR ANDRE at: 03/04/2025 20:42:04 by:KENA Performed By: #### [id number] #### [facility] [address] [place] [id number] C Urineon 01-31-2025 Bacteria identified Cx Nom [...] Locations R1: This test was performed at: [facility], [address] [place] [address], [id number]- , , [facility] Comment on above: Performed By: #### [id number] #### [facility] [address] [place] [id number] Ambulatory Visit Summaryon 0 01-29-2025 Ambulatory Visit Summary Ambulatory Visit Summary ALICJA REYES :1955 Visit Date:01/29/2025 Ambulatory Visit Instructions Your Diagnosis Dysuria BMI 36.0-36.9,adult Former smoker Obesity (BMI 30-39.9) Your Care Team Attending Physician - MARINO KEARNS CNP Primary Care Physician - MARINO KEARNS CNP This Is Your Medications List [facility] ([facility]) amlodipine (amLODIPine 5 [...] AM EDT With: Where: [facility] [address] [id number]- Tuesday 8:15 AM EDT With: EMMY REYNOLDS, Bryant Vogel Where: [facility] [address] [id number]- Tuesday 8:40 AM EST With: MARINO KEARNS CNP Where: [address] [id number]- Tuesday2025 8:00 AM EST With: Where: [address] [id number] Medications What How Much When Instructions Unchanged [...] 1 Tablets By Mouth Every day Unchanged [facility] ([facility]cription) 'Number 1' Glucometer and test strips testing BS twice daily- will bring equipment to [facility] f/ u to update brand Unchanged [...] signed up for this yet, please contact [employer] at [phone] to get signed up today. Language Information Language assistance services are available as needed. Osman Hobbs [facility] Family Medicine Office/Clini c Noteon 01-29-2025 Family Medicine Office/Clinic Note Family Medicine Office/Clinic Note Chief Complaint Possible UTI The patient presents with dysuria and associated nausea. HPI Staff Pt presents today due to possible UTI. Pt does have Hx of UTI & NGB. Does CIC 3x/day. Does see [facility]. Onset: Sx started Tuesday Symptoms: burning [...] He has an upcoming appointment with a hogshead liner, expressing dissatisfaction with previous consultations. Review of [...] 11/15/2012 Saima (more content not included)... Normal [facility] Comment on above: Result Comment: Elec [...] AM EDT With: Where: [facility] [place] [address] [place] [address]- Tuesday 8:15 AM EDT With: Bryant TAO MD Where: [facility] [address] [place] [address]- Tuesday 8:40 AM EST With: MARINO KEARNS CNP Where: [address] [address]- Tuesday2025 8:00 AM EST With: Where: [address] [address]- You Need to Schedule the Following Appointments Follow Up with MARNIO KEARNS CNP, FAM When: Within 3 months Comments: Diabetes Where: [address] [place] [phone] Business (1) Medications What How Much When [...] BS twice daily- will bring equipment to [facility] f/ u to update brand Contact [...] mg-5 mg (more content not included)... Normal [facility] Family Medicine Office/Clini c Noteon 01-08-2025 [...] glucose control. Ordered: HgbA1c Lab Specimen Collect [id number] 2. Low magnesium level (R79.0: Abnormal level of blood mineral) - Awaiting magnesium levels Ordered: Lab Specimen Collect [id number] Magnesium Level 3. BMI 37.0-37.9, adult (Z68.37: Body mass index [BMI] 37.0-37.9, adult) BMI 37.19 Morbid (severe) obesity due to excess calories (E66.01: Morbid (severe) obesity due to excess calories) - Discussed the impact of alcohol consumption on weight and overall health. Follow-up With When Contact Information MARINO KEARNS CNP, FAM Within 3 months [address] [place] [address] [facility] (1) Additional Instructions: Diabetes Patient Education Type [...] 220 m (more content not included)... Normal [facility] Comment on above: Result Comment: Elec tronically Signed By: MARINO KEARNS CNP\.br\Date and Time Signed: 01/08/25 08:28 EDT [id number] 01-08-2025 HbA1c (Bld) [Mass fraction] 7.7 % High <=5.9 [facility] Comment on above: Performed By: #### 7 [id number] #### [facility] [address] [place] [address] C Urineon 11-16-2024 Bacteria identified Cx Nom [...] Locations R1: This test was performed at: [facility], [address] [place] [address], [address] , , [facility] Comment on above: Performed By: #### 2 [id number] #### [facility] [address] [place] [address] Ambulatory Visit Summaryon 0 11-14-2024 Ambulatory Visit [...] AM EDT With: Nancy Grace MD Where: [facility] [address] [address]- Tuesday 8:00 AM EDT With: Where: [facility] [address] [place] [address]- Tuesday 8:15 AM EDT With: EMMY REYNOLDS, Bryant Vogel Where: [facility] [address] [place] [address]- Tuesday2025 8:00 AM EST With: Where: [facility] [address] [address]- Medications What How Much When Why Instructions New ciprofloxacin (Cipro 500 mg Tab) 1 Tablets By Mouth Every 12 hours Dizziness Microhematuria Duration: 7 Days Pickup at [facility]/pharmacy #[id number] Unchanged acetaminophen-hydroco done (acetaminophen-hydroc odone 325 mg-5 [...] By Mouth Every day Unchanged Misc Prescription ([facility] Prescription) 'Number 1' Glucometer [...] a day (in the evening) Pharmacy Information [facility]/pharmacy #[id number]: [address], [place] [id number] [phone] Allergies CeleBREX (Anxiety, Unknown) Problems Ongoing - [...] emptying Ki (more content not included)... Normal [facility] Medicine Office/Clini c Noteon 11-14-2024 Family [...] day(s), # 14 tab(s), Refills(s) 0, [id number] 174, cm, 11/14/24 10:26:00 EDT, Height/Length Dosing, 112.9, kg, 11/14/24 10:26:00 EDT, Weight Dosing Urnls Dip Stick Auto w/o Microscopy POC [address] Microhematuria (R31.29: Other microscopic hematuria) - POC U/A shows leukocytes and blood - Urine culture pending - Start Ciprofloxacin - Provider to call with urine culture results Ordered: ciprofloxacin, 500 mg = 1 tab(s), Oral, q12hr, X 7 day(s), # 14 tab(s), Refills(s) 0, [id number], 174, cm, 11/14/24 10:26:00 EDT, Height/Length Dosing, 112.9, kg, 11/14/24 10:26:00 EDT, Weight Dosing Urine Culture Orders: magnesium oxide, 400 mg = 1 tab(s), Oral, TID, 90 EA, 0 Refill(s), TAKE 1 TABLET BY MOUTH THREE TIMES A DAY, # 90 tab(s), Refills(s) 0, Pharmacy: [facility]/pharmacy #[id number], 174, cm, 11/14/24 10:26:00 EDT, Height/Length [...] 2 tab(s (more content not included)... Normal [facility] Comment on above: Result Comment: Elec [...] EDT With: Ruiz REYNOLDS, Nancy Thompson Where: [address] [id number]- Tuesday 8:00 AM EDT With: Where: [facility] [address] [place] [address] [place] [address]- Tuesday 8:15 AM EDT With: EMMY REYNOLDS, Bryant Vogel Where: [facility] [address] [place] [address]. [place] [address]- Tuesday2025 8:00 AM EST With: Where: [address] [address]- You Need to Complete the [...] recurrent, m (more content not included)... Normal [facility] BMPon 10-08-2024 CO2 [Moles/Vol] 24 mmol/L Normal - [facility] Comment on above: Performed By: #### 2 [id number] #### [facility] [address] [place] [address] Anion gap [Moles/Vol] 14 mmol/L Normal 6-16 [facility] Comment on above: Performed By: #### 2 [id number] #### [facility] [address] [place] [address] Calcium [Mass/Vol] 8.5 mg/dL Low 8.9-11.1 [facility] Comment on above: Performed By: #### 2 [id number] #### [facility] [address] [place] [address] Chloride [Moles/Vol] 103 mmol/L Normal 101-111 [facility] Comment on above: Performed By: #### 2 [id number] #### [facility] [address] [place] [address] Creatinine [Mass/Vol] 1.4 mg/dL High 0.5-1.3 [facility] Comment on above: Performed By: #### 2 [id number] #### [facility] [address] [place] [address] Glucose [Mass/Vol] 248 mg/dL High 55-199 [facility] Comment on above: Performed By: #### 2 [id number] #### [facility] [address] [place] [address] Potassium [Moles/Vol] 4.5 mmol/L Normal 3.5-5.3 [facility] Comment on above: Performed By: #### 2 [id number] #### [facility] [address] [place] [address] Sodium [Moles/Vol] 136 mmol/L Normal 135-145 [facility] Comment on above: Performed By: #### 2 [id number] #### [facility] [address] [place] [address] Urea nitrogen [Mass/Vol] 16 mg/dL Normal 5-21 [facility] Comment on above: Performed By: #### 2 [id number] #### [facility] [address] [place] [address] Urea nitrogen/Creatinine [Mass ratio] 11 No Units Normal 10-20 [facility] Comment on above: Performed By: #### 2 [id number] #### [facility] [address] [place] [address] CHEMISTRYOrdered By: SYSTEM SYSTEM on 10-08-2024 Magnesium [...] 24 mmol/L Normal 21 - 31 mmol/L [facility] Chem S CHEMISTRYOrdered By: Irma Irwin on 10-08-2024 HbA1c (Bld) [Mass fraction] 8.7 % High <=5.9% [facility] ChemAutoSS Family Medicine Office/Clini c Noteon 10-08-2024 [...] Please con (more content not included)... Normal [facility] Comment on above: Result Comment: Elec tronically Signed By: Ruiz REYNOLDS, Nancy Thompson\.br\Date and Time Signed: 10/08/24 08:19 EDT [id number] 10-08-2024 HbA1c (Bld) [Mass fraction] 8.7 % High <=5.9 [facility] Comment on above: Performed By: #### 7 [id number] #### [facility] [address] [place] [address] Magnesiumon 10-08-2024 Magnesium [Mass/Vol] 0.9 mg/dL Abnormal 1.3-2.4 [facility] Comment on above: Result Comment: Crit ical Result Verified by Repeat Analysis Critical Result S_M.9 Called to and read back by: DR. ANDRE at: 10/08/2024 19:50:28 by:ZARA Performed By: #### 2 [id number] #### [facility] [address] [place] [address] eGFRon 10-08-2024 eGFR 54 mL/min/1.73 m2 Low >=59 [facility] Comment on above: Performed By: #### 1 [id number] #### [facility] [address] [place] [address] Ambulatory Visit Summaryon 0 09-24-2024 Ambulatory Visit [...] AM EDT With: Nancy Grace MD Where: [address] [address]- Tuesday 8:15 AM EDT With: Nancy Grace MD Where: [address] [address]- Tuesday2025 8:00 AM EST With: Where: [address] [address]- Medications What How Much When Why Instructions [...] 1 Tablets By Mouth Every day Unchanged [facility] Prescription ([facility] Prescription) 'Number 1' Glucometer and test strips testing BS twice daily- will bring equipment to [facility] f/ u to update brand Unchanged [...] for choosing us for your care. Normal [facility] CHEMISTRYOrdered By: SYSTEM SYSTEM on 09-24-2024 Free PSA [Mass/Vol] 0.4 ng/mL Invalid Interpretation Code [facility] Comment on above: Interpretive Data: T he concentration of free PSA and total PSA determined with assays from different manufacturers can vary due to differences in assay methods and specificity. Values obtained with different personnel administrator's assays cannot be used interchangeably. The methodology used to obtain this result was chemiluminescence using [employer] Access Hybritech PSA reagent and Access Hybritech [...] for this result was chemiluminescence using Ephraim Dheere Bolo's Access Hybritech PSA reagent. Ambulatory Visit Summaryon 0 09-03-2024 Ambulatory Visit Summary Ambulatory Visit Summary ALICJA REYES :1955 Visit Date:09/03/2024 Ambulatory Visit Instructions Your Care Team Attending Physician - RAMANDEEP PORTER PA-C Primary Care Physician - Nancy Grace MD This Is Your Medications List Misc Prescription ([facility] Prescription) amlodipine (amLODIPine 5 [...] AM EDT With: Nancy Grace MD Where: [address] [address]- Tuesday 8:15 AM EDT With: Ruiz REYNOLDS, Nancy Thompson Where: [address] [address]- Tuesday2025 8:00 AM EST With: Where: [address] [address]- Medications What How Much When Why Instructions [...] BS twice daily- will bring equipment to [facility] f/ u to update brand Unchanged [...] for choosing us for your care. Normal [facility] CHEMISTRYOrdered By: SYSTEM SYSTEM on 08-22-2024 Magnesium [Mass/Vol] 0.6 mg/dL Invalid Interpretation Code 1.3 - 2.4 mg/dL [facility] Comment on above: Result Comment: Crit ical Result Verified by Repeat Analysis Critical Result S_M.6 Called to and read back by: DR. NANCY GRACE at: 08/22/2024 18:46:44 by:CAROLINE Taylor 08-22-2024 Magnesium [Mass/Vol] 0.6 mg/dL Abnormal 1.3-2.4 [facility] Comment on above: Result Comment: Crit ical Result Verified by Repeat Analysis Critical Result S_M.6 Called to and read back by: DR. NANCY GRACE at: 08/22/2024 18:46:44 by:CAROLINE Performed By: #### 2 [id number] #### [facility] [address] [place] [address] Ambulatory Visit Summaryon 0 08-21-2024 Ambulatory Visit [...] RAMANDEEP PORTER PA-C Where: [facility] [address] [place] [address]- Tuesday 8:00 AM EDT With: Nancy Grace MD Where: [address] [phone]- Tuesday 8:15 AM EDT With: Nancy Grace MD Where: [address] [id number]- Tuesday2025 8:00 AM EST With: Where: [address] [address]- You Need to Schedule the [...] BS twice daily- will bring equipment to [facility] f/ u to update brand Contact [...] w (more content not included)... Normal [facility] Urology Office/Clinic Noteon 08-21-2024 Urology [...] 7.4% (PSAD 0.31) MRI of prostate 07/21/23 [facility] - A focal area involving the anterior [...] (R33.9: Retention of urine, unspecified) 06/04/23 - [facility] ER due to chills and dizziness after [...] urinary tract symptoms) MRI of prostate 07/21/23 [facility] - Prostate volume 26 cc. Grossly distended urinary bladder with partially visualized bilateral hydroureter. TALAMANTES is suspected and fol (more content not included)... Normal [facility] Comment on above: Result Comment: Elec [...] methods and specificity. Values obtained with different personnel administrator's assays cannot be used interchangeably. The methodology used to obtain this result was chemiluminescence using Ephraim Dheere Bolo's Access Hybritech PSA reagent and Access Hybritech [...] for this result was chemiluminescence using Ephraim Dheere Bolo's Access Hybritech PSA reagent. BASIC METABOLIC PANLon 08-14 Anion gap [Moles/Vol] 12 mmol/L Normal 5-15 [facility] Comment on above: Performed By: #### B MP #### [facility] ([id number]) [address], [address] [place] [address] Calcium [Mass/Vol] 9.3 mg/dL Normal 8.5-10.5 [facility] Comment on above: Performed By: #### B MP #### [facility] ([id number]) [address], [address] [place] [address] Chloride [Moles/Vol] 100 mmol/L Normal 98-109 [facility] Comment on above: Performed By: #### B MP #### [facility] ([id number]) [address], [address] [place] [address] CO2 [Moles/Vol] 24 mmol/L Normal 22-32 [facility] Comment on above: Performed By: #### B MP #### [facility] ([id number]) [address], [address] [place] [address] Creatinine [Mass/Vol] 1.35 mg/dL High 0.60-1.30 [facility] Comment on above: Result Comment: METH OD TRACEABLE TO IDMS STANDARD Performed By: #### B MP #### [facility] ([id number]) [address] [address] [place] [address] GFR/1.73 sq M.predicted among non-blacks MDRD (S/P/Bld) [Vol rate/Area] 56 mL/min/{1.73_m2} Low >59 [facility] Comment on above: Result Comment: Reported eGFR is based on the CKD-EPI 2020 equation that does not use a race coefficient. Performed By: #### B MP #### [facility] ([id number]) [address] [facility] [place] [address] Glucose [Mass/Vol] 204 mg/dL High 65-99 [facility] Comment on above: Performed By: #### B MP #### [facility] ([id number]) [address] [facility] [address] [place] [address] Potassium [Moles/Vol] 4.3 mmol/L Normal 3.5-5.0 [facility] Comment on above: Performed By: #### B MP #### [facility] ([id number]) [address] [facility] [place] [address] Sodium [Moles/Vol] 136 mmol/L Normal 134-146 [facility] Comment on above: Performed By: #### B MP #### [facility] ([id number]) [address] [address] [place] [address] Urea nitrogen [Mass/Vol] 18 mg/dL Normal 5-27 [facility] Comment on above: Performed By: #### B MP #### [facility] ([id number]) [address] [address] [place] [address] Basic metabolic 1998 panelon 08-14-2024 Anion gap [Moles/Vol] 12 mmol/L 5 - 15 mmol/L [facility] Calcium [Mass/Vol] 9.3 mg/dL 8.5 - 10.5 mg/dL [facility] Chloride [Moles/Vol] 100 mmol/L 98 - 109 mmol/L [facility] CO2 [Moles/Vol] 24 mmol/L 22 - 32 mmol/L [facility] Creatine [Mass/Vol] 1.35 mg/dL High 0.60 - 1.30 mg/d L [facility] Comment on above: METHOD TRACEABLE TO IDMS STANDARD GFR/1.73 sq M.predicted among non-blacks MDRD (S/P/Bld) [Vol rate/Area] 56 mL/min/{1.73_m2} Low - PINF [facility] Comment on above: Reported eGFR is based on the CKD-EPI 2020 equation that does not use a race coefficient. PERFORMED AT [facility] [address] [facility],[place] [address] Glucose [Mass/Vol] 204 mg/dL High 65 - 99 mg/dL [facility] Interpretation and review of laboratory results Abnormal [facility] Potassium [Moles/Vol] 4.3 mmol/L 3.5 - 5.0 mmol /L [facility] Sodium [Moles/Vol] 136 mmol/L 134 - 146 mmol/L [facility] Urea nitrogen [Mass/Vol] 18 mg/dL 5 - 27 mg/dL [facility] Family Medicine Office/Clini c Noteon 08-08-2024 Family [...] quit 2005 (Last Updated: 05/18/2024 12:51:20 [facility] by Gil Conley) Former smoker, [...] Pain Lo (more content not included)... Normal [facility] Comment on above: Result Comment: Elec [...] Grace MD This Is [facility]ations [facility] ([facility] Prescription) amlodipine (amLODIPine 5 [...] APRN, Estefania Santiago Where: [facility] [address] [facility] [place] [address]- Tuesday 8:15 AM EDT With: Nancy Grace MD Where: [address] [address]- Tuesday 8:15 AM EDT With: Nancy Grace MD Where: [address] [id number]- Tuesday2025 8:00 AM EST With: Where: [address] [phone]- Medications What How Much When Why Instructions [...] BS twice daily- will bring equipment to [facility] f/ u to update brand Unchanged [...] discomfort t (more content not included)... Normal [facility] Ambulatory Visit Summary Ambulatory Visit Summary ALICJA REYES :1955 Visit Date:07/16/2024 Ambulatory Visit Instructions Your Diagnosis Type 2 diabetes mellitus with hypercholesterolemia BMI 37.0-37.9, adult Obesity (BMI 30-39.9) Former smoker Hypomagnesemia Pure hypercholesterolemia, unspecified Your Care Team Attending Physician - Nancy Garce MD Primary Care Physician - Nancy Grace MD This Is Your Medications List [facility] Pres[place] ([facility] Prescription) amlodipine (amLODIPine 5 [...] APRN, Estefania Santiago Where: [facility] [address] [address]- Tuesday 8:15 AM EDT With: Nancy Grace MD Where: [address] [phone]- Tuesday 8:15 AM EDT With: Nancy Grace MD Where: [address] [address]- Tuesday2025 8:00 AM EST With: Where: [address] [address]- Medications What How Much When Why Instructions New semaglutide (Ozempic 2 mg/ 3 mL (0.25 mg or 0.5 mg dose) subcutaneous solution) 0.25 Milligram Subcutaneous Every week Type 2 diabetes mellitus with hypercholesterolemia BMI 37.0-37.9, adult Obesity (BMI 30-39.9) Former smoker Hypomagnesemia Pickup at [facility]/pharmacy #[id number] Unchanged amlodipine (amLODIPine 5 mg Tab) See [...] a day (in the evening) Pharmacy Information [facility]/pharmacy #[id number]: [address] [place], [place] [phone] Allergies CeleBREX (Anxiety, Unknown) Problems Ongoing - [...] You ma (more content not included)... Normal [facility] CHEMISTRYOrdered By: SYSTEM SYSTEM on 07-16-2024 [...] The patient has been managing this with [id number] magnesium supplements. He denies any symptoms of [...] qWeek, # 3 mL, Refills(s) 0, Pharmacy: [facility]/pharmacy #[id number], 175.3, cm, 07/16/24 8:18:00 EST, Height/Length Dosing, 114, kg, 07/16/24 8:18:00 EST, Weight Dosing Body Mass Index (BMI) documented 3008F Current tobacco non-user 1036F Depression Screening Negative 3352F Influenza immunization status assessed 1030F Lab Specimen Collect [address] Magnesium Level Medication list documented in medical [...] qWeek, # 3 mL, Refills(s) 0, Pharmacy: [facility]/pharmacy #[id number], 175.3, cm, 07/16/24 8:18:00 EST, Height/Length Dosing, 114, kg, 07/16/24 8:18:00 EST, Weight Dosing Magnesium Level 3. Obesity (BMI 30-39.9) (E66.9: Obesity, unspecified) Encouraged dietary modifications and physical activity. Consideration for medications that could provide weight loss benefits inclusive to their primary use, such as Ozempic. Ordered: semaglutide, 0.25 mg, SubCutaneous, qWeek, # 3 mL, Refills(s) 0, Pharmacy: [facility]/pharmacy #[id number], 175.3, cm, 07/16/24 8:18:00 EST, Height/Length Dosing, 114, kg, 07/16/24 8:18:00 EST, Weight Dosing Magnesium Level 4. Former smoker (Z87.891: Personal history of nicotine dependence) Reinforced smoking cessation and its benefits on long-term health outcomes. Ordered: semaglutide, 0.25 mg, SubCutaneous, qWeek, # 3 mL, Refills(s) 0, Pharmacy: [facility]/pharmacy #[id number], 175.3, cm, 07/16/24 8:18:00 EST, Height/Length Dosing, 114, kg, 07/16/24 8:18:00 EST, Weight Dosing Magnesium Level 5. Hypomagnesemia (E83.42: Hypomagnesemia) Blood sample required to reassess serum magnesium levels. Depending on results, magnesium supplementation may be adjusted. Ordered: sema (more content not included)... Normal [facility] Comment on above: Result Comment: Elec tronically Signed By: Nancy Grace MD\.br\Date and Time Signed: 07/16/24 08:57 EST Magnesiumon 07-16-2024 Magnesium [Mass/Vol] 0.5 mg/dL Abnormal 1.3-2.4 [facility] Comment on above: Result Comment: Crit ical Result Verified by Previous Result Critical Result S_M.5 Called to and read back by: NANCY GRACE at: 07/16/2024 18:21:49 by:KENA Performed By: #### 2 [id number] #### [facility] [address] [place] [address] Pre-Visit Planningon 025 Pre-Visit Planning Pre-Visit Planning From: Valarie Solis To: Nancy Grace MD; Sent: 07/06/2024 11:24:03 EST Subject: Pre-Visit Planning Due Date/Time: 07/06/2024 11:24:00 EST Caller Name: ALICJA REYES; Caller Number: , M Nj Dr. Grace. During a pre-visit planning chart review, I noted the following documentation in the medical record: Current Problem List: Alcohol abuse uncomplicated, Hypokalemia, Hypomagnesemia, Major depressive disorder recurrent moderate, HTN, and Tachycardia. Current Medication List: amlodipine, lisinopril, magnesium oxide, metoprolol, and potassium chloride. 07/25/2023 MWV: AUDIT Score =5. 12/29/2023 [facility] IP Nephrology Consult Note: Alcoholism: Discussed with him stopping his alcohol use. He states that he would rather than stop drinking alcohol. He currently drinks 6-10 beers per day. Consult case management for rehabilitation. [facility] protocol. 01/05/2024 Office Visit Note: HPI- [...] feel free to contact me at extension [phone]. Thank you! Valarie Solis LPN Clinical [employer] [place] [address] Extension: [phone] [email or web address] From: Nancy Grace MD To: Valarie Solis; [...] this with him at last visit. Normal [facility] Ambulatory Visit Summaryon 0 07-09-2024 Ambulatory [...] This Is Your Medications List Misc Prescription ([facility] Prescription) amlodipine (amLODIPine 5 [...] APRN, Aurora X Where: [facility] [address] [place] [address]- Tuesday 8:15 AM EDT With: Nancy Grace MD Where: [address] [address]- Tuesday 8:15 AM EDT With: Nancy Grace MD Where: [address] [address]- Medications What How Much When [...] BS twice daily- will bring equipment to [facility] f/ u to update brand Unchanged [...] for choosing us for your care. Normal [facility] CBC w/ Auto Diffon 5 Basophils/100 WBC (Bld) 0.7 % Normal 0.0-2.0 [facility] Comment on above: Performed By: #### 2 [id number] #### [facility] [address] [place] [address] Basophils/Leukocytes Auto (Bld) [Pure # fraction] 0.0 E9/L Normal 0.0-0.2 [facility] Comment on above: Performed By: #### 2 [id number] #### [facility] [address] [place] [address] Eosinophils (Bld) [#/Vol] 0.2 E9/L Normal 0.0-0.5 [facility] Comment on above: Performed By: #### 2 [id number] #### [facility] [address] [place] [address] Eosinophils/100 WBC (Bld) 3.3 % Normal 0.0-8.0 [facility] Comment on above: Performed By: #### 2 [id number] #### [facility] [address] [place] [address] Erythrocyte distribution width (RBC) [Ratio] 12.9 % Normal 10.9-14.2 [facility] Comment on above: Performed By: #### 2 [id number] #### [facility] [address] [place] [address] Hematocrit (Bld) [Volume fraction] 39.3 % Normal 37.7-49.0 [facility] Comment on above: Performed By: #### 2 [id number] #### [facility] [address] [place] [address] Hemoglobin (Bld) [Mass/Vol] 13.3 g/dL Low 13.5-17.5 [facility] Comment on above: Performed By: #### 2 [id number] #### [facility] [address] [place] [address] Lymphocytes (Bld) [#/Vol] 1.4 E9/L Normal 1.0-4.0 [facility] Comment on above: Performed By: #### 2 [id number] #### [facility] [address] [place] [address] Lymphocytes/100 WBC (Bld) 21.3 % Normal 14.0-50.0 [facility] Comment on above: Performed By: #### 2 [id number] #### [facility] [address] [place] [address] MCH (RBC) [Entitic mass] 33.6 pg Normal 27.0-34.0 [facility] Comment on above: Performed By: #### 2 [id number] #### [facility] [address] [place] [address] MCHC (RBC) [Mass/Vol] 33.9 g/dL Normal 31.4-36.0 [facility] Comment on above: Performed By: #### 2 [id number] #### [facility] [address] [place] [address] MCV (RBC) [Entitic vol] 99.1 fL Normal 80.0-100.0 [facility] Comment on above: Performed By: #### 2 [id number] #### [facility] [address] [place] [address] Monocytes (Bld) [#/Vol] 0.7 E9/L Normal 0.2-1.0 [facility] Comment on above: Performed By: #### 2 [id number] #### [facility] [address] [place] [address] Neutrophils (Bld) [#/Vol] 4.1 E9/L Normal 2.0-7.5 [facility] Comment on above: Performed By: #### 2 [id number] #### [facility] [address] [place] [address] Neutrophils/100 WBC (Bld) 63.7 % Normal 36.0-75.0 [facility] Comment on above: Performed By: #### 2 [id number] #### [facility] [address] [place] [address] Platelet mean volume (Bld) [Entitic vol] 8.0 fL Normal 6.4-10.8 [facility] Comment on above: Performed By: #### 2 [id number] #### [facility] [address] [place] [address] Platelets (Bld) [#/Vol] 249.0 E9/L Normal 150.0-500.0 [facility] Comment on above: Performed By: #### 2 [id number] #### [facility] [address] [place] [address] RBC (Bld) [#/Vol] 4.0 E12/L Low 4.3-5.9 [facility] Comment on above: Performed By: #### 2 [id number] #### [facility] [address] [place] [address] WBC corrected for nucl RBC Auto (Bld) [#/Vol] 6.4 E9/L Normal 4.0-11.0 [facility] Comment on above: Performed By: #### 2 [id number] #### [facility] [address] [place] [address] CHEMISTRYOrdered By: SYSTEM SYSTEM on 07-09-2024 Albumin [...] (Bld) [Mass fraction] 8.0 % High <=5.9% [facility] ChemAutoSS CMPon 07-09-2024 Albumin [Mass/Vol] 4.3 g/dL Normal 3.3-5.0 [facility] Comment on above: Performed By: #### 2 [id number] #### [facility] [address] [place] [address] Albumin/Globulin (S) [Mass conc ratio] 1.7 Normal 1.1-2.2 [facility] Comment on above: Performed By: #### 2 [id number] #### [facility] [address] [place] [address] ALP [Catalytic activity/Vol] 75 Int._Unit/L Normal 21-98 [facility] Comment on above: Performed By: #### 2 [id number] #### [facility] [address] [place] [address] ALT No additional P-5'-P [Catalytic activity/Vol] 16 Int._Unit/L Normal 6-46 [facility] Comment on above: Performed By: #### 2 556129 #### [facility] [address] [place] [address] Anion gap [Moles/Vol] 14 mmol/L Normal 6-16 [facility] Comment on above: Performed By: #### 2 [id number] #### [facility] [address] [place] [address] AST [Catalytic activity/Vol] 17 Int._Unit/L Normal 5-43 [facility] Comment on above: Performed By: #### 2 993704 #### [facility] [address] [place] [address] Bilirubin [Mass/Vol] 0.9 mg/dL Normal 0.0-1.1 [facility] Comment on above: Performed By: #### 2 156832 #### [facility] [address] [place] [address] Calcium [Mass/Vol] 8.0 mg/dL Low 8.9-11.1 [facility] Comment on above: Performed By: #### 2 772251 #### [facility] [address] [place] [address] Chloride [Moles/Vol] 102 mmol/L Normal 101-111 [facility] Comment on above: Performed By: #### 2 [id number] #### [facility] [address] [place] [address] CO2 [Moles/Vol] 27 mmol/L Normal 21-31 [facility] Comment on above: Performed By: #### 2 703252 #### [facility] [address] [place] [address] Creatinine [Mass/Vol] 1.3 mg/dL Normal 0.5-1.3 [facility] Comment on above: Performed By: #### 2 417408 #### [facility] [address] [place] [address] Globulin (S) [Mass/Vol] 2.6 g/dL Normal 1.4-4.0 [facility] Comment on above: Performed By: #### 2 351010 #### [facility] [address] [place] [address] Glucose [Mass/Vol] 291 mg/dL High 55-199 [facility] Comment on above: Performed By: #### 2 968610 #### [facility] [address] [place] [address] Potassium [Moles/Vol] 3.7 mmol/L Normal 3.5-5.3 [facility] Comment on above: Performed By: #### 2 626185 #### [facility] [address] [place] [address] Protein [Mass/Vol] 6.9 g/dL Normal 6.0-7.8 [facility] Comment on above: Performed By: #### 2 086204 #### [facility] [address] [place] [address] Sodium [Moles/Vol] 139 mmol/L Normal 135-145 [facility] Comment on above: Performed By: #### 2 616449 #### [facility] [address] [place] [address] Urea nitrogen [Mass/Vol] 12 mg/dL Normal 5-21 [facility] Comment on above: Performed By: #### 2 874645 #### [facility] [address] [place] [address] Urea nitrogen/Creatinine [Mass ratio] 9 No Units Low 10-20 [facility] Comment on above: Performed By: #### 2 [id number] #### [facility] [address] [place] [address] Family Medicine Office/Clini c Noteon 07-09-2024 Family [...] Concerns: [facility]. 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 He also mentions self-catherization due to a [...] Ratio 5 (more content not included)... Normal [facility] Comment on above: Result Comment: Elec [...] Normal 4.0 - 11.0 E9/L Remisol Heme [id number] 07-09-2024 HbA1c (Bld) [Mass fraction] 8.0 % High <=5.9 [facility] Comment on above: Performed By: #### 7 [id number] #### [facility] [address] [place] [address] Lipid Panelon 07-09-2024 Cholesterol [Mass/Vol] 112 mg/dL Low 120-200 [facility] Comment on above: Performed By: #### 2 933208 #### [facility] [address] [place] [address] Cholesterol in HDL [Mass/Vol] 41 mg/dL Invalid Interpretation Code [facility] Comment on above: Result Comment: '>= 60 LOW RISK' '<= 40 HIGH RISK' Performed By: #### 2 388170 #### [facility] [address] [place] [address] Cholesterol in LDL [Mass/Vol] 59 mg/dL Normal <=129 [facility] Comment on above: Performed By: #### 2 461074 #### [facility] [address] [place] [address] Cholesterol in VLDL [Mass/Vol] 20 mg/dL Normal 7-40 [facility] Comment on above: Performed By: #### 2 [id number] #### [facility] [address] [place] [address] Triglyceride [Mass/Vol] 100 mg/dL Normal <=149 [facility] Comment on above: Performed By: #### 2 124616 #### [facility] [address] [place] [id number] Pre-Visit Planningon 025 Pre-Visit Planning Pre-Visit Planning From: Valarie Solis To: Ruiz REYNOLDS, Nancy Thompson; Sent: 07/06/2024 11:32:39 EST Subject: Pre-Visit Planning Due Date/Time: 07/06/2024 11:32:00 EST Caller Name: ALICJA REYES; Caller Number: , Nicole Nj Dr. Grace. During a pre-visit planning chart [...] feel free to contact me at extension [phone]. Thank you! Valarie Solis LPN Clinical Extruder Tender [address] [address] Extension: [phone] [email or web address] From: Nancy Grace MD To: Valarie Solis; Sent: 07/09/2024 09:09:48 EST Subject: RE: Pre-Visit Planning Caller Name: ALICJA REYES; Caller Number: H , M -Type 2 diabetes mellitus with peripheral neuropathy, Yes he has it and we discussed it today at his visit. [facility] Pre-Visit Planning Pre-Visit Planning From: Valarie Solis To: Nancy Grace MD; Sent: 07/06/2024 11:03:26 EST Subject: Pre-Visit Planning Due Date/Time: 07/06/2024 11:03:00 EST Caller Name: ALICJA REYES; Caller Number: H , Nj Dr. Grace. During a pre-visit planning chart [...] you! Valarie Solis LPN Clinical Documentation Improvement Special[place] [address] TEAMS or [email or web address] From: Ruiz REYNOLDS, Nancy Thompson To: Valarie Solis; Sent: 07/09/2024 07:49:46 EST Subject: RE: Pre-Visit Planning Caller Name: ALICJA REYES; Caller Number: Sana , M Added Morbid Obesity. Normal [facility] U Microalbon 07-09-2024 Albumin DL <= 20 mg/L (U) [Mass/Vol] 10.5 mg/dL High 0.0-1.9 [facility] Comment on above: Performed By: #### 1 [id number] #### [facility] [address] [place] [address] eGFRon 07-09-2024 eGFR 59 mL/min/1.73 m2 Normal >=59 [facility] Comment on above: Performed By: #### 1 [id number] #### [facility] [address] [place] [address] Provider Letteron 07-02-2024 Provider Letter Provider Letter July 02, 2024 ALICJA REYES [address] [place] [id number] : 1955 Dear Alicja , We have [...] Sincerely, [facility] [address] [place] [address] Normal [facility] EMG 2 Extremitieson 05-22-20 [facility] A generalized proces s such as a polyneuropathy which is axonal loss in type and moderate to severe in degree electrically Carpal tunnel syndrome bilaterally, moderate right and mild left, may be overestimated given polyneuropathy Cervical radiculopathy can not be excluded [facility] 11-12 Nerveson [facility] A generalized proces s such as a polyneuropathy which is axonal loss in type and moderate to severe in degree electrically Carpal tunnel syndrome bilaterally, moderate right and mild left, may be overestimated given polyneuropathy Cervical radiculopathy can not be excluded [facility] Ambulatory Visit Summaryon 1 07-19-2023 Ambulatory Visit [...] Appointments Tuesday 8:00 AM EST With: Where: [facility] [address] [address]- Tuesday 8:15 AM EST With: EMMY REYONLDS, Bryant Vogel Where: [facility] [address] [place] [address]- Medications What How Much When Instructions Unchanged [...] choosing us for your care. Osman [facility] Family Medicine Office/Clini c Noteon [...] bedtime), # 30 cap(s), Refills(s) 0, Pharmacy: [facility]/pharmacy #[id number], 175.3, cm, 05/18/24 7:58:00 EST, Height/Length Dosing, 112.1, kg, 05/18/24 7:58:00 EST, Weight Dosing EMG Right Lower Extremity (RLE) [facility] External Ambulatory Referral 2. Former smoker (Z87.891: [...] Daily, # 90 cap(s), Refills(s) 0, Pharmacy: [id number], 175.3, cm, 05/18/24 7:58:00 EST, Height/Length [...] Daily, # 90 cap(s), Refills(s) 0, Pharmacy: [id number], 175.3, cm, 05/18/24 7:58:00 EST, Height/Length [...] No qualifying data available Patient Education Paresthesia, Wldo-ax-Pisz Problem List/Past Medical History Ongoing Alcohol abuse [...] mg, Oral, (more content not included)... Normal [facility] Comment on above: Result Comment: Elec tronically Signed By: MARINO KEARNS CNP\.br\Date and Time Signed: 05/18/24 08:48 EST Magnesiumon 02-28-2024 Magnesium [Mass/Vol] 0.5 mg/dL Abnormal 1.3-2.4 [facility] Comment on above: Result Comment: Crit ical Result S_M.5 Called to and read back by: NOBLE OLIVAS at: 02/28/2024 15:00:56 by:[email or web address] Critical Result Verified by Repeat Analysis Performed By: #### 2 [id number] ####[facility] [address] [place] [address] CHEMISTRYOrdered By: SYSTEM SYSTEM on 02-22-2024 Albumin [...] 02-22-2024 Albumin [Mass/Vol] 4.1 g/dL Normal 3.3-5.0 [facility] Comment on above: Performed By: #### 1 [id number] #### [facility] [address] [place] [address] Anion gap [Moles/Vol] 15 mmol/L Normal 6-16 [facility] Comment on above: Performed By: #### 1 [id number] #### [facility] [address] [place] [address] Calcium [Mass/Vol] 8.4 mg/dL Low 8.9-11.1 [facility] Comment on above: Performed By: #### 1 [id number] #### [facility] [address] [place] [address] Chloride [Moles/Vol] 101 mmol/L Normal 101-111 [facility] Comment on above: Performed By: #### 1 [id number] #### [facility] [address] [place] [address] CO2 [Moles/Vol] 26 mmol/L Normal 21-31 [facility] Comment on above: Performed By: #### 1 [id number] #### [facility] [address] [place] [address] Creatinine [Mass/Vol] 1.3 mg/dL Normal 0.5-1.3 [facility] Comment on above: Performed By: #### 1 [id number] #### [facility] [address] [place] [address] Glucose [Mass/Vol] 274 mg/dL High 55-199 [facility] Comment on above: Performed By: #### 1 [id number] #### [facility] [address] [place] [address] Phosphate [Mass/Vol] 2.4 mg/dL Normal 1.9-4.6 [facility] Comment on above: Performed By: #### 1 [id number] #### [facility] [address] [place] [address] Potassium [Moles/Vol] 4.1 mmol/L Normal 3.5-5.3 [facility] Comment on above: Performed By: #### 1 [id number] #### [facility] [address] [place] [address] Sodium [Moles/Vol] 138 mmol/L Normal 135-145 [facility] Comment on above: Performed By: #### 1 [id number] #### [facility] [address] [place] [address] Urea nitrogen [Mass/Vol] 14 mg/dL Normal 5-21 [facility] Comment on above: Performed By: #### 1 [id number] #### [facility] [address] [place] [address] Urea nitrogen/Creatinine [Mass ratio] 11 No Units Normal 10-20 [facility] Comment on above: Performed By: #### 1 [id number] #### [facility] [address] [place] [address] eGFRon 02-22-2024 eGFR 59 mL/min/1.73 m2 Normal >=59 [facility] Comment on above: Order Comment: Order added by Discern Expert. Performed By: #### 1 [id number] #### [facility] [address] [place] [address] CHEMISTRYOrdered By: SYSTEM SYSTEM on 01-30-2024 Magnesium [Mass/Vol] 0.5 mg/dL Invalid Interpretation Code 1.3 - 2.4 mg/dL [facility] Chem S Comment on above: Result Comment: Crit ical Result Verified by Repeat Analysis called to Marcin Grace by [email or web address] at 01/30/2024 19:19:23 EDT Results Verified By Repeat Analysis Magnesiumon 01-30-2024 Magnesium [Mass/Vol] 0.5 mg/dL Abnormal 1.3-2.4 [facility] Comment on above: Result Comment: Crit ical Result Verified by Repeat Analysis called to Marcin Grace by [email or web address] at 01/30/2024 19:19:23 EDT Results Verified By Repeat Analysis Performed By: #### 2 [id number] #### [facility] [address] [place] [address] Magnesium [Mass/Vol] 0.5 mg/dL Abnormal 1.3-2.4 [facility] Comment on above: Result Comment: Crit ical Result Verified by Repeat Analysis Performed By: #### 2 [id number] #### [facility] [address] [place] [address] [facility] 01-18-20 [facility] Case Information Case Priority: None Programs: -- Referral Source: Public Weigher Referral Reason: Care coordination Case Type: Transition [...] 1 Outcome: Left message-voicemail Contact Type: Complex gericare aidemedical reimbursement manager Name: Alicja Castellon Notes: TCM#2- message left for return call. Created By: Alicja Castellon Date: January 03, 2024 Method: Phone call Type: Outbound Duration (min): 12 Outcome: Case discussion Contact Type: veterans' coordinator Contact Name: Alicja Castellon Notes: TCM#1- see tcm note. Created By: Alicja Castellon Date: January 02, 2024 Method: Phone call Type: Outbound Duration (min): 1 Outcome: Left message-voicemail Contact Type: veterans' coordinator Contact Name: Alicja Castellon Notes: TCM#1- left vm for return call. Created By: Alicja Castellon [facility] Ambulatory Visit Summaryon 0 01-13-2024 [...] Appointments Tuesday 8:00 AM EST With: Where: [facility] [address] [address]- Tuesday 8:15 AM EST With: EMMY REYNOLDS, Bryant Vogel Where: [facility] [address] [place] [address]- Medications What How Much When Instructions Unchanged [...] 1 Tablets By Mouth Every day Unchanged [facility] Prescription ([facility] Prescription) 'Number 1' Glucometer [...] for choosing us for your care. Normal [facility] Heart and Vascular Office/Cl inic Noteon [...] See Instructions (more content not included)... Normal [facility] Comment on above: Result Comment: Elec [...] methods and specificity. Values obtained with different personnel administrator's assays cannot be used interchangeably. The methodology used to obtain this result was chemiluminescence using [employer] Access Hybritech PSA reagent and Access Hybritech [...] used for this result was chemiluminescence using [employer] Hybritech PSA reagent. Magnesiumon 01-11-2024 Magnesium [Mass/Vol] 0.9 mg/dL Abnormal 1.3-2.4 [facility] Comment on above: Result Comment: Crit ical Result Verified by Repeat Analysis Critical Result S_M.9 Called to and read back by: DR KATZ at: 01/11/2024 19:10:59 by:GALO Performed By: #### 2 [id number] #### [facility] [address] [place] [address] Ambulatory Visit Summaryon 0 01-10-2024 Ambulatory Visit [...] Appointments Tuesday 8:00 AM EDT With: Where: [address] [address]- Tuesday 9:00 AM EDT With: Buster REYNOLDS, Javier Garvin Where: [facility] Tuesday 8:00 AM EST With: Where: [address] [address]- Tuesday 8:15 AM EST With: Bryant TAO MD Where: [facility] [address] [facility] [place] [address]- You Need to Schedule the Following Appointments Follow Up with Bryant TAO MD, URL When: Comments: 6 mos Where: [address] [place] [address]- Medications What How Much When Instructions [...] BS twice daily- will bring equipment to [facility] f/ u to update brand Unchanged [...] for choosing us for your care. Normal [facility] Urology Office/Clinic Noteon 01-10-2024 Urology Office/Clinic [...] (R33.9: Retention of urine, unspecified) 06/04/23 - [facility] ER due to chills and dizziness after [...] urinary tract symptoms) MRI of prostate 07/21/23 [facility] - Prostate volume 26 cc. Grossly distended [...] 04/04/23 - 6.1 MRI of prostate 07/21/23 [facility] - A focal area involving the anterior [...] L p (more content not included)... Normal [facility] Comment on above: Result Comment: Elec [...] REYNOLDS, Bryant Vogel Where: [facility] [address] [place] [address] [place] [address]- Tuesday 8:00 AM EDT With: Where: [address] [address]- Tuesday 9:00 AM EDT With: Buster REYNOLDS, Javier Garvin Where: [facility] Tuesday 8:00 AM EST With: Where: [address] [address]- Medications What How Much When Why Instructions [...] 1 Tablets By Mouth Every day Unchanged [facility] ([facility] Prescription) 'Number 1' Glucometer [...] your care. Normal [facility] Family Medicine Office/Clini c Noteon 01-05-2024 Family Medicine Office/Clinic Note Family Medicine Office/Clinic Note HPI Staff Alicja is a 68 year old male presenting for hospital follow up TCM: Hospital: [facility] Admission date: 12/29/23 Discharge date: 12/30/23 Symptoms the patient presented with: sent by pcp for hypomagnesia Current concerns: doesn't care for Dacia Bañuelos the [employer]ACE ASSEMBLER she took care of him in the [...] 130-139 mm (more content not included)... Normal [facility] Comment on above: Result Comment: Elec tronically Signed By: Ruiz REYNOLDS, Nancy Cordoba.br\Date and Time Signed: 01/05/24 08:26 EDT Population Health 01-03-20 [facility] Case Information Case Priority: None Programs: -- Referral Source: Public Weigher Referral Reason: Care coordination Case Type: Transition [...] this am. (more content not included)... Normal [facility] PTH Intacton 01-01-2024 Parathyrin.intact [Mass/Vol] 23 pg/mL Invalid Interpretation Code 15-65 [facility] Comment on above: Result Comment: Perf ormed at: [facility] [address] [id number] PhD Malik Fernando Performed By: #### 1 [id number] #### [facility] [address] [place] [address] C Urineon 12-31-2023 Bacteria identified Cx Nom (U) Microbiology PROCEDURE: Urine Culture [R1] SOURCE: U CleanCatch BODY SITE: COLLECTED DATE/TIME: 12/29/2023 15:42 EDT RECEIVED DATE/TIME: 12/29/2023 17:12 EDT START DATE/TIME: 12/29/2023 17:12 EDT FREE TEXT SOURCE: [facility], Dacia BAÑUELOS [facility], Dacia FINAL REPORTS Final Report [] Verified [...] Locations R1: This test was performed at: [facility], [address] [place] [address], [address]- , , [facility] Comment on above: Performed By: #### 2 [id number] #### [facility] [address] [place] [address] General Message Officeon Splice Machine Message Office --- --- --- --- --- --- --- --- --- From: Nancy Ferreira To: ALICJA REYES Sent: 12/31/23 02:30:27 AM EDT Subject: Discharge Summary Ready to View A summary regarding your recent visit is available in the Documents section of your health record. Normal [facility] Miscellaneous-LCon 12-30 Lab Miscellaneous COMMENT Invalid Interpretation Code [facility] Comment on above: Order Comment: Aldao m sample, not 24hr collection Urine Result Comment: Test Ordered: [id number] Magnesium, U Magnesium, U 5.1 mg/dL CB Reference Range: Not Estab. Performed at: CB [facility] [address] [id number] PhD Malik Fernando Performed By: #### 1 [id number] #### [facility] [address] [place] [address] CHEMISTRYOrdered By: Lab ROP User on 12-30-2023 Glucose [Mass/Vol] 168 mg/dL High 55 - 99 mg/dL FTM C POC Subsection Comment on above: Result Comment: Kingston gloria RN/ POC Device SN [id number] 1 Invalid Interpretation Code [facility] POC Subsection POC User ID [id number] 1 Invalid Interpretation Code [facility] POC Subsection POC Username NAVEEN AMANDA Invalid Interpretation Code FT POC Subsection Glucose [Mass/Vol] 150 mg/dL High 55 - 99 mg/dL F[facility] C POC Subsection Comment on above: Result Comment: [place] gloria RN/ POC Device SN [id number] 1 Invalid Interpretation Code [facility] POC Subsection POC User ID [id number] 1 Invalid Interpretation Code [facility] POC Subsection [...] 12-05 Glucose [Mass/Vol] 168 mg/dL High 55-99 [facility] Comment on above: Result Comment: Kingston gloria RN/ Performed By: #### 2 [id number] #### [facility] [address] [place] [address] HEMATOLOGYOrdered By: SYSTEM SYSTEM on 12-30-2023 Basophils/100 [...] 12-30-2023 Inpatient Clinical Summary Inpatient Clinical Summary [address] [address] Clinical Summary Person Information: Name: ALICJA REYES Age: 68 Years : 1955 Sex: Male PCP: Nancy Grace MD Marital Status: Race: White Ethnicity: Non- or Language: Tanzanian Visit Id: Visit Reason: Abnormal diagnostic test; SENT BY DR GRACE MAGNESIUM IS LOW Speciality: Acuity: Enc Type: Inpatient Med Service: Medical Arrival: 12/29/2023 13:33:35 Discharge: Dispo Type: Admitted as IP to this Hosp Address: [address] [place] [id number] Provider Notes: Diagnosis: 1:Hypomagnesemia; 2:UTI (urinary tract [...] Address: Shyanne: Ramos Euceda [address] [place] [address] Business (1) Comments: Call for followup appointment in [place] office With: Address: When: Nancy Grace [address] [place] [address] Business (2) 01/05/2024 7:45 AM Type Location Start [facility] Follow Up w/TCM [facility] 01/05/2024 7:45 AM 01/05/2024 8:05 AM Confirmed URO Office Visit [facility] [place] 01/10/2024 8:15 AM 01/10/2024 8:30 AM Confirmed Cardiology Follow Up (FT) [facility] 01/13/2024 9:00 AM 01/13/2024 9:15 AM Confirmed Medicare Wellness Subsequent [facility] 07/09/2024 8:00 AM 07/09/2024 9:00 AM Confirmed Patient Education Information: How to Take Your Blood Pressure, Eynk-ez-Qavy; Form - Blood Pressure Record Sheet; Urinary Tract Infection, Adult, Lpap-fp-Bpyt; Hypomagnesemia cyanocobalamin, levofloxacin, lisinopril, magnesium oxide 400 mg Tab Normal [facility] Inpatient Clinical Summary Inpatient Clinical Summary [address] [address] Clinical Summary Person Information: Name: ALICJA REYES Age: 68 Years : 1955 Sex: Male PCP: Nancy Grace MD Marital Status: Race: White Ethnicity: Non- or Language: Tanzanian Visit Id: Visit Reason: Abnormal diagnostic test; SENT BY DR GRACE MAGNESIUM IS LOW Speciality: Acuity: Enc Type: Inpatient Med Service: Medical Arrival: 12/29/2023 13:33:35 Discharge: Dispo Type: Admitted as IP to this Hosp Address: [address] [place] [phone] Provider Notes: Diagnosis: 1:Hypomagnesemia; 2:UTI (urinary tract [...] Follow up: With: Address: When: Nancy Grace [address] [place] [id number] [facility] () 01/05/2024 7:45 AM Type Location Start [facility] Follow Up w/TCM [facility] 01/05/2024 7:45 AM 01/05/2024 8:05 AM Confirmed URO Office Visit [facility] ZAIN Casiano 01/10/2024 8:15 AM 01/10/2024 8:30 AM Conf[facility]/13/[facility] 9:00 AM 01/13/2024 9:15 AM Confirmed Medicare Wellness Subsequent [facility] 07/09/2024 8:00 AM 07/09/2024 9:00 AM Confirmed Patient Education Information: Normal [facility] Inpatient Patient Summaryon 12-30-2023 Inpatient Patient [...] EDT With: Ruiz REYNOLDS, Nancy Thompson Where: [address] [address]- Tuesday 8:15 AM EDT With: EMMY REYNOLDS, Bryant Vogel Where: [facility] [address] [place] [address]- Tuesday 9:00 AM EDT With: Buster REYNOLDS, Javier Garvin Where: [facility] Tuesday 8:00 AM EST With: Where: [address] [address]- New Follow Up Appointments after Discharge Follow Up with Nancy Grace When: 01/05/2024 07:45 AM EDT Where: [address] [place] [address]- Business (2) Follow Up with Ramos Euceda When: Comments: Call for followup appointment in [place] office Where: [place] [address]- Business (1) Medications What How Much When Why Instructions Next Dose New acetaminophen (acetaminophen 325 mg Tab) 2 Tablets By Mouth Every 6 hours as needed for Pain start as new med New cyanocobalamin (cyanocobalamin 1000 mcg Tab) 1 Tablets By Mouth Every day Pickup at [facility]/pharmacy #[id number] 12/31/23 9am New levofloxacin (Levaquin 500 mg Tab) 1 Tablets By Mouth Every 24 hours Duration: 10 Days Pickup at [facility]/pharmacy #[id number] start as new med today New lisinopril (lisinopril 40 mg Tab) 1 Tablets By Mouth Every day Pickup at [facility]/pharmacy #[id number] 12/31/23 9am New multivitamin (Therapeutic Multiple Vitamin Tab) See instructions Oral Daily Printed Prescription 12/31/23 9am Changed magnesium oxide (magnesium oxide 400 mg Tab) 1 Tablets By Mouth 2 times a day Pickup at [facility]/pharmacy #6177 12/30/23 9pm Unchanged amlodipine (amLODIPine 5 [...] mg Ta (more content not included)... Normal [facility] Inpatient Patient Summary Inpatient Patient Summary [place] [address] Patient Discharge Instructions PERSON INFORMATION Name: ALICJA [...] up: With: Address: When: [address] [place] [phone] Business (1) Comments: Call for followup appointment in [place] office With: Address: When: Nancy [address] [place], [place] [phone] Business (2) 01/05/2024 7:45 AM In the event that this physician does not participate in your insurance network, please consult with your insurance company to find a nearby participating provider. Type Location Start [facility] Follow Up w/TCM [facility] 01/05/2024 7:45 AM 01/05/2024 8:05 AM Confirmed URO Office Visit [facility] [place] 01/10/2024 8:15 AM 01/10/2024 8:30 AM Confirmed Cardiology Follow Up (FT) [facility] 01/13/2024 9:00 AM 01/13/2024 9:15 AM Confirmed Medicare Wellness Subsequent [facility] 07/09/2024 8:00 AM 07/09/2024 9:00 AM Confirmed Comment: ERIC Song ROBIN D, have received the attached patient education materials/instruction s and have verbalized understanding: Patient Signature Date Clinican/Nurse Signature Date HERE ARE THE MEDICATION CHANGES THAT OCCURRED DURING YOUR HOSPITAL STAY New Medications [id number], [address] [facility] [place], [place] [id number], [phone] cyanocobalamin (cyanocobalamin 1000 mcg Tab) 1 Tablets [...] Medications to Continue Taking That Have Changed [facility]/pharmacy #[id number], [address] [place], [place] [id number], [phone] START: magnesium oxide (magnesium oxide 400 mg [...] Last Dose: (more content not included)... Normal [facility] Inpatient Patient Summary Inpatient Patient Summary [place] [address] Patient Discharge Instructions PERSON INFORMATION Name: ALICJA [...] With: Address: When: Nancy [place] [address] Business (2) 01/05/2024 7:45 AM In the event that this physician does not participate in your insurance network, please consult with your insurance company to find a nearby participating provider. Type Location Start [facility] Follow Up w/TCM [facility] [place] 01/05/2024 7:45 AM 01/05/2024 8:05 AM Confirmed URO Office Visit [facility] ZAIN Casiano 01/10/2024 8:15 AM 01/10/2024 8:30 AM Confirmed [facility]/13/[facility] 9:00 AM 01/13/2024 9:15 AM Confirmed Medicare Wellness Subsequent [facility] 07/09/2024 8:00 AM 07/09/2024 9:00 AM Confirmed [...] EVERY DAY. (more content not included)... Normal [facility] Lab Miscellaneous-LCon 12-29 Test Code 470983 Invalid Interpretation Code [facility] Comment on above: Order Comment: Rando m sample, not 24hr collection Urine Result Comment: Юлия ected test code Performed By: #### 1 [id number] #### [facility] [address] [place] [address] Reference Laboratory Testing Ordered By: Dacia BAÑUELOS on 12-30-2023 Test Code 403600 1 Invalid Interpretation Code [facility] Comment on above: Result Comment: Юлия ected test code Test Name urine mag Invalid Interpretation Code [facility] TSH With T4fr Reflexon 12-29 TSH Qn 1.54 m[IU]/L Normal 0.34-5.60 [facility] Comment on above: Performed By: #### 1 [id number] #### [facility] [address] [place] [id number] CHEMISTRYOrdered By: Lab ROP User on 12-29-2023 Glucose [Mass/Vol] 170 mg/dL High 55 - 99 mg/dL FTM C POC Subsection POC Device SN [id number] 1 Invalid Interpretation Code [facility] POC Subsection POC User ID [id number] 1 Invalid Interpretation Code [facility] POC Subsection POC Username FAHEEM LUNA Invalid Interpretation Code [facility] POC Subsection CHEMISTRYOrdered By: SYSTEM SYSTEM on [...] Test Name urine mag Invalid Interpretation Code [facility] Comment on above: Order Comment: Kelsey redd sample, not 24hr collection Urine Performed By: #### 1 [id number] #### Anjel [facility] [address] [place] [address] Laboratory - Microbiology an d Antimicrobial susceptibilityOrdered By: Amber Jeffries on 12-29-2023 Bacteria identified Cx Nom (U) 75,000 cfu/ml Streptococcus species [facility] URINALYSISOrdered By: SYSTEM SYSTEM on 12-29-2023 Bacteria [...] that meet specific criteria set forth by [facility]. Epithelial cells.squamous Auto (Urine sed) [...] [#/Area] >75 graded/HPF Invalid Interpretation Code 0-5graded/HPF [facility] UA Auto SS URINALYSISOrdered By: Dacia BAÑUELOS on 12-29-2023 UA Spec Desc Clean Catch (12/29/23 3:42 PM) Normal [facility] UA Auto SS Ambulatory Visit Summaryon 0 [...] REYNOLDS, Bryant Vogel Where: [facility] [place] Invalid Interpretation Code [address] [place] [address]- \.br\ Someone Will Contact You Regarding These Appointments\.br\ [facility] External Ambulatory Referral, Nephrology, 12/27/23 8:10:00 EDT, Hypomagnesemia [facility] Ambulatory Visit Summary Ambulatory Visit Summary [...] REYNOLDS, Bryant Vogel Where: [facility] [place] Invalid Interpretation Code [address] [place] [address]- \.br\ Someone Will Contact You Regarding These Appointments\.br\ [facility] External Ambulatory Referral, Nephrology, 12/27/23 8:10:00 EDT, Hypomagnesemia [facility] BMPon 12-27-2023 Anion gap [Moles/Vol] 14 mmol/L Normal 6-16 [facility] Comment on above: Performed By: #### 2 [id number] #### [facility] [address] [place] [place] [address] Calcium [Mass/Vol] 8.5 mg/dL Low 8.9-11.1 [facility] Comment on above: Performed By: #### 2 [id number] #### [facility] [address] [place] [place] [address] Chloride [Moles/Vol] 104 mmol/L Normal 101-111 [facility] Comment on above: Performed By: #### 2 199115 #### [facility] [address] [place] [address] CO2 [Moles/Vol] 24 mmol/L Normal 21-31 [facility] Comment on above: Performed By: #### 2 419989 #### [facility] [address] [place] [address] Creatinine [Mass/Vol] 1.5 mg/dL High 0.5-1.3 [facility] Comment on above: Performed By: #### 2 119438 #### [facility] [address] [place] [address] Glucose [Mass/Vol] 158 mg/dL Normal 55-199 [facility] Comment on above: Performed By: #### 2 937322 #### [facility] [address] [place] [address] Potassium [Moles/Vol] 4.7 mmol/L Normal 3.5-5.3 [facility] Comment on above: Performed By: #### 2 128613 #### [facility] [address] [place] [address] Sodium [Moles/Vol] 137 mmol/L Normal 135-145 [facility] Comment on above: Performed By: #### 2 [id number] #### [facility] [address] [place] [address] Urea nitrogen [Mass/Vol] 19 mg/dL Normal 5-21 [facility] Comment on above: Performed By: #### 2 851441 #### [facility] [address] [place] [address] Urea nitrogen/Creatinine [Mass ratio] 13 No Units Normal 10-20 [facility] Comment on above: Performed By: #### 2 [id number] #### [facility] [address] [place] [address] CHEMISTRYOrdered By: SYSTEM SYSTEM on 12-27-2023 Anion [...] back by: DOCTOR DIEGO at: 12/27/2023 20:26:51 by:[email or web address] Potassium [Moles/Vol] 4.7 mmol/L Normal 3.5 - [...] for ER follow up ER followup: [facility] [place] Visit date: 12/23/23 Symptoms the patient dizziness, [...] History Ar (more content not included)... Normal [facility] Comment on above: Result Comment: Elec tronically Signed By: Ruiz REYNOLDS, Nancy Cordoba.br\Date and Time Signed: 12/27/23 08:08 EDT Magnesiumon 12-27-2023 Magnesium [Mass/Vol] 0.9 mg/dL Abnormal 1.3-2.4 [facility] Comment on above: Result Comment: Crit ical Result Verified by Repeat Analysis Critical Result S_M.9 Called to and read back by: DOCTOR DIEGO at: 12/27/2023 20:26:51 by:[email or web address] Performed By: #### 2 [id number] #### [facility] [address] [place] [address] eGFRon 12-27-2023 eGFR 50 mL/min/1.73 m2 Low >=59 [facility] Comment on above: Order Comment: Order added by Discern Expert. Performed By: #### 1 [id number] #### [facility] [address] [place] [address] C Urineon 12-24-2023 Bacteria identified Cx Nom [...] Locations R1: This test was performed at: [facility], [address] [place] [address], [phone]- , [place], Normal [facility] Comment on above: Performed By: #### 2 556233 #### [facility] [address] [place] [address] CMPon 12-23-2023 Albumin [Mass/Vol] 4.4 g/dL Normal 3.3-5.0 [facility] Comment on above: Performed By: #### 2 762094 #### [facility] [address] [place] [address] Albumin/Globulin (S) [Mass conc ratio] 1.5 Normal 1.1-2.2 [facility] Comment on above: Performed By: #### 2 001730 #### [facility] [address] [place] [address] ALP [Catalytic activity/Vol] 62 Int._Unit/L Normal 21-98 [facility] Comment on above: Performed By: #### 2 309526 #### [facility] [address] [place] [address] ALT No additional P-5'-P [Catalytic activity/Vol] 22 Int._Unit/L Normal 6-46 [facility] Comment on above: Performed By: #### 2 965290 #### [facility] [address] [place] [address] AST [Catalytic activity/Vol] 21 Int._Unit/L Normal 5-43 [facility] Comment on above: Performed By: #### 2 [id number] #### [facility] [address] [place] [address] Bilirubin [Mass/Vol] 0.9 mg/dL Normal 0.0-1.1 [facility] Comment on above: Performed By: #### 2 051621 #### [facility] [address] [place] [address] Globulin (S) [Mass/Vol] 2.9 g/dL Normal 1.4-4.0 [facility] Comment on above: Performed By: #### 2 539806 #### [facility] [address] [place] [address] Protein [Mass/Vol] 7.3 g/dL Normal 6.0-7.8 [facility] Comment on above: Performed By: #### 2 837867 #### [facility] [address] [place] [address] Magnesiumon 12-23-2023 Magnesium [Mass/Vol] mg/dL Abnormal 1.3-2.4 [facility] Comment on above: Result Comment: Crit ical Result S_MG:<0.5 Called to and read back by: ANGELLA GUERRERO at: 12/23/2023 08:18:07 by:[email or web address] Critical Result Verified by Repeat Analysis Performed By: #### 2 950996 #### [facility] [address] [place] [address] CBC w/ Auto Diffon 4 Basophils/100 WBC (Bld) 0.7 % Normal 0.0-2.0 [facility] Comment on above: Performed By: #### 2 250887 #### [facility] [address] [place] [address] Basophils/Leukocytes Auto (Bld) [Pure # fraction] 0.1 E9/L Normal 0.0-0.2 [facility] Comment on above: Performed By: #### 2 696629 #### [facility] [address] [place] [address] Eosinophils (Bld) [#/Vol] 0.1 E9/L Normal 0.0-0.5 [facility] Comment on above: Performed By: #### 2 198353 #### [facility] [address] [place] [address] Eosinophils/100 WBC (Bld) 1.5 % Normal 0.0-8.0 [facility] Comment on above: Performed By: #### 2 728739 #### [facility] [address] [place] [address] Erythrocyte distribution width (RBC) [Ratio] 13.3 % Normal 10.9-14.2 [facility] Comment on above: Performed By: #### 2 238459 #### [facility] [address] [place] [address] Hematocrit (Bld) [Volume fraction] 38.5 % Normal 37.7-49.0 [facility] Comment on above: Performed By: #### 2 192622 #### [facility] [address] [place] [address] Hemoglobin (Bld) [Mass/Vol] 13.2 g/dL Low 13.5-17.5 [facility] Comment on above: Performed By: #### 2 841455 #### [facility] [address] [place] [address] Lymphocytes (Bld) [#/Vol] 1.4 E9/L Normal 1.0-4.0 [facility] Comment on above: Performed By: #### 2 490792 #### [facility] [address] [place] [address] Lymphocytes/100 WBC (Bld) 18.7 % Normal 14.0-50.0 [facility] Comment on above: Performed By: #### 2 743881 #### [facility] [address] [place] [address] MCH (RBC) [Entitic mass] 33.5 pg Normal 27.0-34.0 [facility] Comment on above: Performed By: #### 2 778926 #### [facility] [address] [place] [address] MCHC (RBC) [Mass/Vol] 34.3 g/dL Normal 31.4-36.0 [facility] Comment on above: Performed By: #### 2 630203 #### [facility] [address] [place] [address] MCV (RBC) [Entitic vol] 97.5 fL Normal 80.0-100.0 [facility] Comment on above: Performed By: #### 2 258808 #### [facility] [address] [place] [address] Monocytes (Bld) [#/Vol] 0.6 E9/L Normal 0.2-1.0 [facility] Comment on above: Performed By: #### 2 118797 #### [facility] [address] [place] [address] Neutrophils (Bld) [#/Vol] 5.3 E9/L Normal 2.0-7.5 [facility] Comment on above: Performed By: #### 2 487724 #### [facility] [address] [place] [address] Neutrophils/100 WBC (Bld) 70.6 % Normal 36.0-75.0 [facility] Comment on above: Performed By: #### 2 364191 #### [facility] [address] [place] [address] Platelet 246.0 E9/L Normal 150.0-500.0 [facility] Comment on above: Performed By: #### 2 939302 #### [facility] [address] [place] [address] Platelet mean volume (Bld) [Entitic vol] 7.6 fL Normal 6.4-10.8 [facility] Comment on above: Performed By: #### 2 779161 #### [facility] [address] [place] [address] RBC (Bld) [#/Vol] 4.0 E12/L Low 4.3-5.9 [facility] Comment on above: Performed By: #### 2 620300 #### [facility] [address] [place] [address] WBC corrected for nucl RBC Auto (Bld) [#/Vol] 7.4 E9/L Normal 4.0-11.0 [facility] Comment on above: Performed By: #### 2 557619 #### [facility] [address] [place] [address] CHEMISTRYOrdered By: Jaime van on 12-22-2023 Anion [...] Anion gap [Moles/Vol] 19 mmol/L High 6-16 [facility] Comment on above: Performed By: #### 2 712174 #### [facility] [address] [place] [address] Calcium [Mass/Vol] 8.2 mg/dL Low 8.9-11.1 [facility] Comment on above: Performed By: #### 2 355190 #### [facility] [address] [place] [address] Chloride [Moles/Vol] 100 mmol/L Low 101-111 [facility] Comment on above: Performed By: #### 2 333355 #### [facility] [address] [place] [address] CO2 [Moles/Vol] 23 mmol/L Normal 21-31 [facility] Comment on above: Performed By: #### 2 494832 #### [facility] [address] [place] [address] Creatinine [Mass/Vol] 1.6 mg/dL High 0.5-1.3 [facility] Comment on above: Performed By: #### 2 052481 #### [facility] [address] [place] [address] Glucose [Mass/Vol] 255 mg/dL High 55-199 [facility] Comment on above: Performed By: #### 2 624908 #### [facility] [address] [place] [address] Potassium [Moles/Vol] 3.8 mmol/L Normal 3.5-5.3 [facility] Comment on above: Performed By: #### 2 748175 #### [facility] [address] [place] [address] Sodium [Moles/Vol] 138 mmol/L Normal 135-145 [facility] Comment on above: Performed By: #### 2 560508 #### [facility] [address] [place] [address] Urea nitrogen [Mass/Vol] 17 mg/dL Normal 5-21 [facility] Comment on above: Performed By: #### 2 599015 #### [facility] [address] [place] [address] Urea nitrogen/Creatinine [Mass ratio] 11 No Units Normal 10-20 [facility] Comment on above: Performed By: #### 2 664428 #### [facility] [address] [place] [address] Family Medicine Office/Clini c Noteon 12-22-2023 Family [...] Diff Comprehensive Metabolic Panel Lab Specimen Collect 09967 Magnesium Level Urnls Dip Stick Auto w/o Microscopy POC 59210 3. Former smoker (Z87.891: Personal history of nicotine dependence) Encouraged to continue as a non-smoker Ordered: Lab Specimen Collect 93066 Urnls Dip Stick Auto w/o Microscopy POC 21579 4. BMI 36.0-36.9,adult (Z68.36: Body mass index [...] at subsequent visits. Ordered: Lab Specimen Collect 51335 Urnls Dip Stick Auto w/o Microscopy POC 60[address] Orders: magnesium oxide, 400 mg = 1 [...] moderate Murmur (more content not included)... Normal [facility] Comment on above: Result Comment: Elec [...] 12-22-2023 eGFR 46 mL/min/1.73 m2 Low >=59 [facility] Comment on above: Order Comment: Order added by Discern Expert. Performed By: #### 1 [id number] #### [facility] [address] [place] [address] Coding Summary.on 11-29-2023 Coding Summary. VPRBWogs28CZj3rCn+PG h lYWQ+CK7CXLCpA80hfFFd qE9wG6OAEQkCApuwWOTVC BpGCiOdlwTkTG0knYYzCQ Ju IC8+VD9iVJZyQpmwiDFsb 5J4pOD4N00nxk2lNGlmqV Z8VXCmTkEtecbzq4iupJh 6IDcuNmluOyBt MNKfuS35SDB7zL93Cf06h HOwfAOhy0hcxKf4JiOoLZ FySQW1tGxjXDqru1WzTHD vZ42fiPMlu2J5 YVRxdBfswWJqFtCfiJT2h H1iWCprhgkea1yeuurmQz j0tf93cQDea6A9lSA2C3V zaoH3URPasCJw RzcpkQZHnQ0kieiof3qdm tbhNkRaQTDzMAz3ZKe0UN PvvIukCgXdCZ75DAB3SZX fwhVuS7RaWLOf bOwrTaJ7d4J5Rf6AR4QNP sdhY9BKSGYSUEhdlYG+PC 43nk83F7GcGwajVlb7JSL zAHO0gKK8wI1v SYZjHVckc9N6wTD1B7Jyf sDnup2nu2hlEXEcKRwvK4 5zdYYlh4H5EEZjxMK2AWQ kqPwuHkGlgF18 Oyc+FALuhAhid0UpVfadf 5msu3brhWi4XucsAUOvya LnmYjbSFY3g8SvVk6rEOE mfQK9kFV0tD5r WyIjVuJ9BIliM770EqGgg GWmOxcoY32gX3HweQJ+PH AoDwe1MTUdbIrgDN7hZ5R hZGRpbmctbGVm aWrpYR5mAGOndddjTWCry H0iPJSsR3e2SdJrJnM5CH doC4XrJQYvtqrhFq82qR8 jStQsKnG2YRcq J8DdmoF7WJTwiIMpZDaeK VX3T79kp7U0WVTeUJErFV L4fEW6rX0loGqhrovmwPZ mdDsgdmVydGlj ZXsfEPmnS993ZTWafMsfW kNvZGluZyBEYXRlOiAgMD YvMjUvMjAyNDwvdGQ+PHR zGNA1zSaqIIGv kROaJZdbUz8nvCfasOtlD O5mLTDxjatqQIUgsB4lPY BbvBQkgGdlWE8mRMWvldl xm829KsIxZCH5 OPHudECbK9EigX2oWlYxH WJlEYFuI9JvhUAbEJbmT7 80HJopWaS2KVSfniYkH8I sLWFsaWduOiB0 j2F2Vy5Ai8WoxwmgZ1Jvm COjDsRuRrvaJHn6O8OnUv wvdHI+PC71QVJpMS95SNa 2PYJ7xNneUPgo SVNlR8XheR9qXqUoEZCsN GRkOyc+PHRhYmxlIHdpZH RoPScxMDAlJyBzdHlsZT0 kMf0lOAElCREs dAxbfAOaUmRox1vkZFGjX EfsHQ3llRirW3MvgGF5CJ Ycd1o3Xr72P96yT3RuzAL +JQBbqUL5sKV8 cI9uMgFhHxN9PHggR444D dGnhBQnYpsfw0vmi2xtoY u5YoL6TODshpOkiVqkXCB 1o8WgLp06V82t IHdpZHRoPSIxNSUiIHZhb Creqw0reG6aLq9+PGNvbC H5xWV6iS0aEjSgBgE7QIe fM899IjHwbRKk Tfmvl4sqk5osvXo1XmGkK IIajsWghTcpNTX0y6WkUu 51P5HxkOowr7TtOcf6ex8 0zXWjl0L5uKR9 F5KqHDYqtgrhpVBzrZirK U8rIIYzyshlYNGmiG2qXT QuI0i4TsZmGoN0EWxbQ1F weoS5EOFfuEFn CREqvBWCnG2sgcuyb8nic vxhTrLlMUGsCVn3TSf2AL DuhLejGhSyJFV6DnK0ILF 2tDIgeO8xiGnb vijffP6mFgi+ZQY8tGPxl GKDEX9hJtoyiTB+PHRkIH G3mUhjYSriCUCqmZ6cOWB rI0s7JaVqUyO2 TRovE4AvcuD0VRGdxXEwT BLqnVQMrN8lxqgbz5tghu lvFbNzMEIrVHr4OYj1QVL saWduOiBsZWZ0 GxA8FVB3mFXokN0jdFigk jriuB6bDkc+QmlydGggRG B7XXl0Y4DuXvo2GHKkeYi sAM5ooNTdFWbl Wl6atRxjzJtdSL8qJVGhe xhag503PqKna5duCMUbuR AhMAqeHIK5W90bj8H6OZQ sGCRtFCJ2yFM0 eQ5vqQfxauxcjHKatHehy cSbuSmpQUjdEHidR672CF JufLfyQyGxSEx7S2KfFso 2RPRzaTbiVF4p jDSlXPioLp5mgEhkpJqiY J8mWKRfcritg107HgNdl4 axAVLcrZLuRWfuCTI4M81 cp5Z9QHSsNYRb WWA9cAF9rV6dbDbsmqqev GVmdDsgdmVydGljYWwtYW oiN514ZEYfoWgdDmEcjJi 5E1XnCxs0MFCq xEudMY6kfAEtLYpoTc0qx SsbeTftWB2bEUQopubqf9 17VrSwx3hmOZArzJEzJWt lQAH4C70da0K5 LCBlQMFzNRJ3oGF5kU9pu GlnbjogbGVmdDsgdmVydG xiQNhmNRduZ863CYUbtMj nPlBhdGllbnQg TNktSJy6E5MxCqsyeDH+P L59WLTqWS96bESbfDQdj1 sdoYp7AfGqEEXmRGX7kDb mVRbfg9BdVQYh G32sqBPkt2L9LTLtbDiwz HDxGgMcuYU6jA5gPYpeiy xax5gvbeaqQcgqk3pwiq1 5bZ04A07lBCrm ZHRoPSIzMCUiIHZhbGlnb d7zoF5fTy8+FHRvdDE4iG I4oT5cHHQcFfR5AIuaE96 9InRvcCIvPjxj x8ifk9itbRp7MhF2YRBvg jLlbWwdBYD9h1SnQq09C5 9sIHdpZHRoPSIyMCUiIHZ omTyiqs2xcG5o Ii8+NHXlyOO0vUJ8yF0wF qGkKfU7BKqtO502LvVfgF VmSgbrU05cD9XukGK+PHR xJnz8ISKzpZha IJ5xgPOgFUmfDn0uGBN8O kSyBzMxHJclG1GnSJGspm ickkerqRX2WFUzIODkoS2 4Ll6heHuzZPUk tUZGxH5jqrttj1jkxdzbQ cAqPQQqTNo0FZr7YEEmvO iaAnCxZQJ2DsK9HZP8kEQ ljH4ciCyxwpgw eD6oF1LrCETenbcmNk65i G3fCgVbRdB9TOtwGxl+TE XPLlYPY7HgMWRVRdjMUNW 8S4BiInr0LPUy eTuyGS4kbUPuBUktZp0yw ZdoyXwjZS9tVDViorzjYU AckB0zELFfnJHaqMzoLH5 iTHYztmwcz093 LwQhTXD2BFMajIZgQ3Hko S7qXiJnWSKuFAAfP0BqiC HdBAgmO743ZNfySnE4LUS jbgHmH5YlOCXs wAjeGoU6h1Y6Co8kYG2zI B5gBIZ7BF68WQ66cIYia7 R2hWJ6A7LqPNJlbwsucxh suGN7GNTqQVSa cZ40pOTtKVksNt4va4M0s 391BOReHPOxjT68Nd9tgP hwSADerMTByU3zbvjlc9o vcjogIzAwMDAw FOz6GIy7GGXflAnqGcIrP PJ3NfQ3SNL4jPCqoS2rgS bomchzxC1fYrb+NjkgWWV jrmA4F9PcEmj7 LFJtiGldKP6jdNSeEBilT l8bzXqkvDlkVS2cEAMolj ljTAKnfT7dLVVteRImoAk oVS0qJRCciphj m684CcDdZQA2MPOpjIYlD 1PmvL1aOwNwVPZuHJOgW4 XefBEfTJxnP087HFdbNdL 1ABSalbSmN4Bb SGKekDwzDdO0g6J7Zc5IE SakCW42YL82mBBve4B4tP X5N3UoAYYmxoshljfsvSP 7YBNhPCTcmB01 gYSwMQejJj9fi1L7l856L OMvZVLloK22In2qmLnpOT SdwGWWkY5pjeokd6lrarn gIzAwMDAwMDt0 SNt4LTRiaUsnJnSqOWI3E bC4WKN0lWYciI0ahLtlsq zbqZ7dSbj+F4W0nRS3pTR udDwvdGQ+PC90 om47A8GhVgiqVqn5KZIkG PE2qWP9bO3vPEJcZHqnr7 I5tKI9T3EhrwDtet6if5n aYPCbXRthS91r uNZft4Z1KIQxkBW5TXHuq GqaFeZtrC93Aol+PGNvbG srf0VnPlxhh1wzq7givRr 9IjMwJSIgdmFs qVcaKLB7v8TeEa39L08jR HdpZHRoPSIzMCUiIHZhbG stja2rdX4mZe6+PGNvbCB 7iTR1wG8jGtLc GiV4BXdyJ820VwAwzHZeG bdlf7pjt8kulDj8CzSkKI MebwUumLmcNHN8h8KpNl6 7L3ZnqCefw1Pm Hfp2bl41cPWwk3N9kBK4F 3BhZGRpbmctbGVmdDogMC 6gBLWigvlgAIGviR4rOLX iR2f4QpPbXhI4 EUbsE4AuhnE4XIAfzGTkP MIpyBKGqR5vycmdu0dwxz nwQaIhOJRnKEq2YYe5QNI saWduOiBsZWZ0 NmJ8LCW2rLHvdX2wpXclu iiozE3fIez+MTu7i1dztL FzWJ8qdOH0CN67PM24tEI kl8S0fUS8V7Ak QWTnqwudeixkbDJ7CMXdG HSxfF06Qg5pbGhxQy7mLZ AqORY8SETmrWRgW7GhtK5 yOiAjMDAwMDAw Z4VhpNFmDYsxM273QGbnB hT9RJMpzwXrS3KiDKHznC yaYjI9a8Z5Uv2UHB64CJ2 0UP94pSAie8D7 qOX1J4HwPSCpertvnipem XF3TITfZCCddO61Vm3ykK yvWh0eTUFpUBC0VVPxoOS pP7FymW9mIcRd JTHqBGDbH6FrlPMzORgjS 443RLdgNeR4ELUmnwOjF1 MrZNKklMilSsD4l3T5Vd5 YJs31JO13OG11 qIPlu0D4fHQ5W9BoZKSai jekljthaEU3OCJxVWLbaZ 97Ti1pzMukVu1xAQMyMYF 3YCCxzVSrA3Il vJ8tSkOoRYUfTUPwI7Xat SWfFKteN617DWbfFbS7YZ PovlZtX1XrKMAtjGoeLqU 8p5R9Ui9AGZgh hul3H0ShRefuaTD+PC90Y TZlMT51pECznUQvj9veiV r6IqLvSXYnAYI1mLgvBYk rc2NzJGCgM82g lOWju5J9CSWoq (more content not included)... Normal [facility] IntraOperative Documentson 0 11-29-2023 IntraOperative Documents [id number]#1 .00TIFF Normal [facility] Consent for Procedure/Surger yon 11-28-2023 Consent for Procedure/Surgery [id number]# 1.00TIFF Normal [facility] Consent for Treatmenton - Consent for Treatment [id number]#1 .00TIFF Normal [facility] Inpatient Patient Summaryon 11-28-2023 Inpatient Patient Summary [place] [id number] Clinical Summary Person Information Name: ALICJA REYES Age: 68 Years : 1955 Sex: Male PCP: Nancy Grace MD Marital Status: Race: White Ethnicity: Non- or Language: [place]anian Visit Id: Visit Reason: FEELING OF INCOMPLETE BLADDER EMPTYING AND BPH WITH LUTS Speciality: Acuity: Enc Type: Outpatient Med Service: Surgery Arrival: 11/28/2023 13:21:43 Discharge: Dispo Type: Address: [address] [place] [phone] Provider Notes: Diagnosis: Problems Active Hypertension Feeling [...] Mouth every day. Refills: 6. Misc Prescription ([facility] [place]) Alcohol prep pads Use to test blood sugars daily Dx E11.9. Refills: 3. Misc Prescription ([facility]is DME Prescription) One Touch Ultra 2 glucose meter kit Use to tests sugars daily E11.9. Refills: 0. Misc Prescription (Misc DME Prescription) One touch ultra 2 test strips Use to tests sugars once a day Dx E11.9. Refills: 3. Misc Pres[facility] Soft click lancets Use to [...] With: Address: When: Bryant LIND, [address], [place] [phone] Business (1) Comments: As we discussed, I [...] State Cardiology Follow Up (FT) [facility] 12/16/2023 9:00 AM 12/16/2023 9:15 AM Confirmed URO Office Visit [facility] EU [place] 01/10/2024 8:15 AM 01/10/2024 8:30 AM Confirmed FM Medicare Wellness Subsequent [facility] [place] 07/09/2024 8:00 AM 07/09/2024 (more content not included)... Normal [facility] IntraOperative Documentson 0 11-28-2023 IntraOperative Documents [id number]# 1.00TIFF Normal [facility] Main OR Intraoperative Recor don 11-28-2023 Main OR Intraoperative Record IntraOp Document Type FTURO Summary Primary Physician: Bryant TAO MD Finalized Date/Time: 11/28/23 15:54:06 Pt. Name: ALICJA REYES/Sex: 1955 Male Med Rec #: [id number] Physician: Bryant TAO MD Financial #: [id number] Pt. Type: O Room/Bed: / Admit/Disch: 11/28/23 [...] Angie Vogel Role Performed Surgeon - Primary Construction Ironworker - Primary Scrub - Primary Time In [...] By: Monica Lanier RN 11/28/23 15:54 Normal [facility] Main OR Preoperative Recordo n 11-28-2023 Main OR Preoperative Record Holding Area Document Type FTURO Summary Primary Physician: Bryant TAO MD Finalized Date/Time: 11/28/23 15:10:28 Pt. Name: ALICJA REYES/Sex: 1955 Male Med Rec #: [id number] Physician: Bryant TAO MD Financial #: [id number] Pt. Type: O Room/Bed: / Admit/Disch: 11/28/23 [...] Complaints of Pain: No Skin Integrity Intact, [place], Warm, & Dry Vitals - EU Blood Pressure 170/90 Pulse 77 bpm Respirations 80 br/min SPO2 Last Modified By: Ivania Hager LPN 11/28/23 15:10:23 Finalized By: Ivania Hager LPN Document Signatures Signed By: Ivania Hager LPN 11/28/23 15:10 Normal [facility] Operative Reporton Operative Report Patient: ALICJA REYES Age: 68 years Sex: Male : 1955 Associated Diagnoses: None Author: Bryant TAO MD Procedure Operative Information Details: Date/ Time: 11/28/2023 15:54:00. Pre-Op Dx: Feeling of incomplete bladder emptying (ATA76-KS R39.14, Working, Medical), Hypotonic neurogenic bladder (OVH80-DK N31.9, Working, Medical), Urinary retention (CGE69-QA R33.9, Working, Medical), BPH with obstruction/lower urinary tract symptoms (HTN32-GX N40.1, Working, Medical). Post-Op Dx: Same. Anesthesia [...] this. He agrees with the plan.. Normal [facility] Comment on above: Result Comment: Elec tronically Signed By: Bryant TAO MD\.br\Date and Time Signed: 11/28/23 15:57 EDT Outpatient Surgery Discharge Instructionon 11-28-2023 Outpatient Surgery Discharge Instruction [id number]# 1.00TIFF Normal [facility] Outpatient Surgery Discharge Instruction [place] [id number] Patient Discharge Instructions PERSON INFORMATION Name: ALICJA [...] Follow up: With: Address: When: Bryant TAO [address] [place] [address], [address], [place] [phone] [facility] (1) Comments: As we discussed, I would [...] Start Finish [facility] 9[facility]00 AM 12/16/2023 9:15 AM Confirmed URO Office Visit [facility] ZAIN [place] 01/10/2024 8:15 AM 01/10/2024 8:30 AM Confirmed [facility]00 AM 07/09/2024 9:00 AM Confirmed [...] to serve you. Thank you for choosing [facility] Normal [facility] Family Medicine Office/Clini c Noteon 11-01-2023 [...] Comments influe (more content not included)... Normal [facility] Comment on above: Result Comment: Elec [...] numbers. This can be done either in [place] (U.S.) or metric measurements. Note that charts and online BMI calculators are available to help you find your BMI quickly and easily without having to do these calculations yourself. To calculate your BMI in [place] ([place].) measurements: 1. Measure your weight in [...] for Disease Control and Prevention: www.cdc.gov ? [place] Heart Association: www.heart.org ? National Heart, Lung, and Blood [place]: www.nhlbi.nih.gov Summary ? Body mass index (BMI) is a number that is calculated from a person's weight and height. ? BMI may help estimate how much of a person's weight is composed of fat. BMI can help identify those who may be at higher risk for certain medical problems. ? BMI can be measured using [place]anian measurements or metric measurements. ? BMI charts are used to identify whether you are underweight, normal weight, overweight, or obese. This information is not intended to replace advice given to you by your health care provider. Make sure you discuss any questions you have with your health care provider. Document Revised: 02/13/2020 Document Reviewed: 12/21/2019 If You Can Patient Education ? 2022 [employer]. Normal [facility] Consent for Treatmenton 10-04 Consent for Treatment [id number]#1 .00TIFF Normal [facility] Heart and Vascular Office/Cl in Noteon [...] with voice recognition artificial intelligence software, specifically Ometrics, Storie and or MashMango. Substitutions may have occurred due to the [...] 400 m (more content not included)... Normal [facility] Comment on above: Result Comment: Elec tronically Signed By: James CHIRSTIAN, Jacinto Butler\.oliver\Date and Time Signed: 10/19/23 08:50 EDT Physician Orderon 10-19-2023 Physician Order [id number]# 1.00TIFF Normal [facility] Pathology Noteon 10-17-2023 Pathology Note [id number]#1 .00TIFF Normal [facility] Ambulatory Visit Summaryon 0 09-22-2023 Ambulatory [...] Bryant TAO MD Where: [facility] [address] [address]- \.br\ You Need to Schedule the Following Appointments\.br\ Follow Up with EMMY REYNOLDS, Bryant Vogel, URL When: \.br\ Where:\.br\ [address] [place] [address] 3\.br\ [place] [address]-\.br\ \.br\ Medications\.br\ What How Much When Instructions\.br\ [...] including vitamins, herbs, eye drops, creams, and nhst-kym-souhycq medicines.\.br\ ? \.br\ Any problems you or [...] you to take them.\.br\ ? \.br\ Taking krur-ays-gzlmyti medicines, vitamins, herbs, and supplements.\.br\ Tests\.br\ You [...] \.br\ A medicine to help you relax [facility] Urology Office/Clinic Noteon 09-22-2023 Urology Office/Clinic [...] with voice recognition artificial intelligence software, specifically Ometrics, Storie and or MashMango. Substitutions may have occurred due to the inherent limitations of voice recognition and artificial intelligence software. 1. Elevated PSA (R97.20: Elevated prostate specific antigen [PSA]) PSA: 06/22/11 - 0.41 11/09/18 - 0.41 01/10/20 - 0.36 02/03/21 - 0.44 07/13/22 - 0.43 04/04/23 - 6.1 MRI of prostate 07/21/23 [facility] [place] A focal area involving the anterior [...] urinary tract symptoms) MRI of prostate 07/21/23 [facility] - Prostate volume 26 cc. Grossly distended [...] Feeling of incomplete bladder emptying) 06/04/23 - [facility] ER due to chills and dizziness after [...] BUN/CR, and (more content not included)... Normal [facility] Comment on above: Result Comment: Elec [...] with voice recognition artificial intelligence software, specifically Ometrics, Storie and or MashMango. Substitutions may have occurred due to the inherent limitations of voice recognition and artificial intelligence software. ATTESTATION: Documentation services were performed after patient or guardian consented to allow [facility] to record this visit. SAMANTHA order processing specialist and provider reviewed before signing. SAMANTHA: [...] cap(s), Oral (more content not included)... Normal [facility] Comment on above: Result Comment: Elec tronically Signed By: Yfn REYNOLDS, Troy Santamaria\.br\Date and Time Signed: 09/14/23 09:16 EDT\.br\Electronically Co-Signed By: Darling Keen\.br\Date and Time Co-Signed: 08/19/23 18:28 EDT Pathology Noteon 09-14-2023 Pathology Note [id number]#1 .00TIFF [facility] Glucose Glucometer (BldC) [M ass/Vol]Ordered By: Bryant Tao on 09-09-2023 Glucose [Mass/Vol] 199 mg/dL [facility] Comment on above: Random Glucose Refer ence Range is dependent on time and content of last meal. Glucose of more than 200 mg/dL in a nonstressed, ambulatory subject supports the diagnosis of Diabetes Mellitus. Glucose Poct Glucometerson 0 09-09-2023 Glucose [Mass/Vol] 199 mg/dL Normal [facility] Comment on above: Result Comment: [place] om Glucose Reference Range is dependent on time and content of last meal. Glucose of more than 200 mg/dL in a nonstressed, ambulatory subject supports the diagnosis of Diabetes Mellitus. PERFORMED BY: [facility] [address] [address] PATHOLOGIST SUPERVISOR SOUND TECHNICIAN ELVI MCNULTY M.D. Performed By: #### G LULS #### Point of Care testing , Glucose [Mass/Vol] 193 mg/dL Normal [facility] Comment on above: Result Comment: [place] om Glucose Reference Range is dependent on time and content of last meal. Glucose of more than 200 mg/dL in a nonstressed, ambulatory subject supports the diagnosis of Diabetes Mellitus. PERFORMED BY: [facility] [address] [place] [address] PATHOLOGIST SUPERVISOR SOUND TECHNICIAN ELVI MCNULTY M.D. Performed By: #### G LULS #### Point of Care testing , Kody 09-09-2023 L Specimen: Received: 09/09/23 [facility] Num: [id number] Spec Type: Surgical Subm Dr: Bryant Tao [...] Account Attending Physician Alicja Reyes D 68/M [place] [id number] Bryant Tao MD SPEC NUM: RECD: 09/09/23 STATUS: JUAN TOLENTINO NUM: [id number] JUDITH: 09/09/23- SUBM DR: Byrant Tao MD ENTERED: 09/09/[address] [facility] [address]: SPEC TYPE: Surgical DEPT: [...] Specimen: Received: 09/09/23 Status: JUAN Tolentino Num: [id number] Spec Type: Surgical Subm Dr: Bryant Tao [...] PIN Cocktail/3 -------- Patient: Ko Reyesin Bharathi [id number] (Continued) -------- Specimen: Received: 09/09/23 (Continued) Pathological Diagnosis (Continued) Signed (signature on file) Cy Jansen MD 09/13/23 1537 -------- Specimen: Received: 09/09/23 Status: JUAN Tolentino Num: [id number] Spec Type: Surgical Subm Dr: Bryant Tao [...] L4/12, PIN Cocktail/3 -------- Patient: Alicja Reyes [id number] (Continued) -------- Specimen: Received: 09/09/23-134 (Continued) Pathological [...] inflammation (more content not included)... Normal [facility] Operative Reporton 4 Operative Report [id number]#1 .00TIFF Normal [facility] Progress Note-Physicianon Progress Note-Physician Patient: ALICJA [...] diabetes mellitus with hypercholesterolemia / SNOMED CT 552801940 / Confirmed linked DM with HLD per OP CDI policy. Tachycardia / SNOMED CT 7076339 / Confirmed Right flank pain / SNOMED CT 506076178 / Confirmed Urinary retention / SNOMED CT 138578395 / Confirmed Diabetic nephropathy associated with type 2 diabetes mellitus / SNOMED CT 8318656802 / Confirmed Recurrent UTI / SNOMED CT 418203550 / Confirmed Major depressive disorder, recurrent, moderate / SNOMED CT 470639338 / Confirmed added per 06/10/2023 query response. Elevated PSA / SNOMED CT 2863673533 / Confirmed Prostate cancer screening / SNOMED CT 143566253 / Confirmed Kidney stone / SNOMED CT 445672430 / Confirmed Incomplete bladder emptying / SNOMED CT 636833840 / Confirmed Hypokalemia / SNOMED CT 12839173 / Confirmed Hypercholesterolemia / SNOMED CT 07078043 / Confirmed Murmur / SNOMED CT 740991731 / Confirmed Gastroesophageal reflux disease without esophagitis / ICD-10-CM K21.9 / Confirmed Fatigue / SNOMED CT 842336555 / Confirmed Primary hypertension / SNOMED CT 43164273 / Confirmed Edema / SNOMED CT 781076729 / Confirmed SOB (shortness of breath) on exertion / SNOMED CT 342821901 / Confirmed Dizziness / SNOMED CT 9870272863 / Confirmed Diastolic dysfunction / SNOMED CT 3078450 / Confirmed Hematuria / SNOMED CT 284751413 / Confirmed BPH with urinary obstruction / SNOMED CT 7812467692 / Confirmed Alcohol abuse / SNOMED CT 91324182 / Confirmed Canceled: UTI symptoms / SNOMED CT 712743207 Canceled: Type 2 diabetes mellitus without complication, without long-term current use of insulin / ICD-10-CM E11.9 Canceled: Tachycardia / SNOMED CT 2033986 Canceled: Hospital discharge follow-up / SNOMED CT 0464296047 Canceled: Obesity / SNOMED CT 6954714437 Canceled: Alcohol abuse, in remission / SNOMED CT 566099359 Canceled: Morbid obesity / SNOMED CT 379460912 added per 05/13/2023 query response. Canceled: Urinary frequency / SNOMED CT 668815190 Canceled: Disorder of prostate / SNOMED CT 19740591 Canceled: Alcohol abuse / SNOMED CT 85551828 Histories Procedure history: back surgery. Comments: 11/15/2012 8:03 Susan Howard RN lower back Arthroscopy right knee ([id number]). Comments: 11/15/2012 8:04 Susan Howard RN right hand and elbow surgery LEFT. Comments: 11/15/2012 8:04 Susan Howard RN left Carpal tunnel release LEFT ([id number]). Hand tendon repaired LEFT ([id number]). Comments: 01/13/2023 11:49 Ruthann Mathur LPN left thumb tendon Spinal fusion x2 ([id number]). Social History Social & Psychosocial Habits Alcohol [...] adequate air exchange. Cardiovascular: Regular rhythm. Plan [place] Society of Anesthesiologists (ASA) physical status classification: Class III. Anesthetic Preoperative Plan: Anesthesia General. [facility] Comment on above: Result Comment: Elec tronically Signed By: Abraham Pitts DO, Juan Nobles\Date and Time Signed: 09/02/23 09:03 EDT CHEMISTRYOrdered By: Lab ROP User on 09-01-2023 Glucose [Mass/Vol] 156 mg/dL High 55 - 99 mg/dL FT C POC Subsection POC Device SN [id number] 1 Invalid Interpretation Code [facility] POC Subsection POC User ID [id number] 1 Invalid Interpretation Code [facility] POC Subsection POC Username JOSE JIMENEZ Invalid Interpretation Code [facility] POC Subsection Capillary Glucose POCon 08-05 Glucose [Mass/Vol] 156 mg/dL High 55-99 [facility] Comment on above: Performed By: #### 2 [id number] ####[facility] [address] [place] [address] Consent for Procedure/Surger yon 09-01-2023 Consent for Procedure/Surgery [id number]# 1.00TIFF [facility] Consent for Treatmenton 08-05 Consent for Treatment [id number]#1 .00TIFF [facility] H&P Updateon 09-01-2023 H&P Update [id number]# 1.00TIFF [facility] Progress Note-Physicianon Progress Note-Physician Patient: [...] patient and his agree with the plan. [facility] Comment on above: Result Comment: Elec tronically Signed By: EMMY REYNOLDS, Bryant Chamorro.oliver\Date and Time Signed: 09/01/23 14:46 EDT Physician Orderon 08-22-2023 Physician Order [id number]#1. 00TIFF Normal [facility] U Microalbon 08-18-2023 Albumin DL <= 20 mg/L (U) [Mass/Vol] 7.8 mg/dL High 0.0-1.9 [facility] Comment on above: Performed By: #### 1 [id number] ####[facility] [address] [facility] [place] [address] Physician Orderon 08-17-2023 Physician Order [id number]# 1.00TIFF Normal [facility] U Protein/Creat Ratioon 08-04 Protein/Creatinine (U) [Ratio] 49.30 mg/gm Cr Normal .00-200.00 [facility] Comment on above: Performed By: #### 1 [id number] ####[facility] [address] [place] [address] U Creatinine 46.0 mg/dL Invalid Interpretation Code [facility] Comment on above: Performed By: #### 1 [id number] ####[facility] [address] [place] [address] Ur Total Protein 22.7 mg/dL Invalid Interpretation Code [facility] Comment on above: Performed By: #### 1 [id number] ####[facility] [address] [place] [address] Ambulatory Visit Summaryon 0 08-15-2023 Ambulatory Visit [...] Yfn REYNOLDS, Troy Santamaria Where: [facility] 2023 1:30 PM EDT With: Where: [facility] Tuesday 8:00 AM EST With: Where: [facility] [place] Normal [facility] BMPon 08-15-2023 Anion gap [Moles/Vol] 15 mmol/L Normal 6-16 [facility] Comment on above: Performed By: #### 7 [id number], [id number] #### [facility] [address] [place] [address] Calcium [Mass/Vol] 8.3 mg/dL Low 8.9-11.1 [facility] Comment on above: Performed By: #### 7 [id number], [id number] #### [facility] [address] [place] [address] Chloride [Moles/Vol] 101 mmol/L Normal 101-111 [facility] Comment on above: Performed By: #### 7 [id number], [id number], [id number] #### [facility] [address] [place] [address] CO2 [Moles/Vol] 27 mmol/L Normal 21-31 [facility] Comment on above: Performed By: #### 7 [id number], [id number] #### [facility] [address] [place] [address] Creatinine [Mass/Vol] 1.4 mg/dL High 0.5-1.3 [facility] Comment on above: Performed By: #### 7 [id number] #### [facility] [address] [place] [address] Glucose [Mass/Vol] 258 mg/dL High 55-199 [facility] Comment on above: Performed By: #### 7 [id number], [id number], [id number] #### [facility] [address] [place] [address] Potassium [Moles/Vol] 3.6 mmol/L Normal 3.5-5.3 [facility] Comment on above: Performed By: #### 7 [id number], [id number], [id number] #### [facility] [facility] [address] [place] [address] Sodium [Moles/Vol] 139 mmol/L Normal 135-145 [facility] Comment on above: Performed By: #### 7 [id number] #### [facility] [address] [place] [address] Urea nitrogen [Mass/Vol] 16 mg/dL Normal 5-21 [facility] Comment on above: Performed By: #### 7 [id number], [id number] #### [facility] [address] [place] [address] Urea nitrogen/Creatinine [Mass ratio] 11 No Units Normal 10-20 [facility] Comment on above: Performed By: #### 7 [id number], [id number] #### [facility] [address] [place] [address] CHEMISTRYOrdered By: SYSTEM SYSTEM on 08-15-2023 Anion [...] (Bld) [Mass fraction] 7.4 % High <=5.9% [facility] ChemAutoSS Family Medicine Office/Clini c Noteon 08-15-2023 [...] about ordering him a BP unit to [facility]. needs zofran refilled to [facility] also also needs omeprazole refilled has to [...] Weight Dosing (more content not included)... Normal [facility] Comment on above: Result Comment: Elec tronically Signed By: Ruiz REYNOLDS, Nancy Cordoba.br\Date and Time Signed: 08/15/23 07:18 EDT [id number] 08-15-2023 HbA1c (Bld) [Mass fraction] 7.4 % High <=5.9 [facility] Comment on above: Performed By: #### 7 [id number], [id number] #### [facility] [address] [place] [address] Patient Educationon 08-15-19 Patient Education Nutrition BMI [...] numbers. This can be done either in [place] ([place] or metric measurements. Note that charts and online BMI calculators are available to help you find your BMI quickly and easily without having to do these calculations yourself. To calculate your BMI in [place] ([place] measurements: 1. Measure your weight in [...] for Disease Control and Prevention: www.cdc.gov ? [place] Heart Association: www.heart.org ? National Heart, Lung, and Blood [place]: www.nhlbi.nih.gov Summary ? Body mass index (BMI) is a number that is calculated from a person's weight and height. ? BMI may help estimate how much of a person's weight is composed of fat. BMI can help identify those who may be at higher risk for certain medical problems. ? BMI can be measured using [place] measurements or metric measurements. ? BMI charts are used to identify whether you are underweight, normal weight, overweight, or obese. This information is not intended to replace advice given to you by your health care provider. Make sure you discuss any questions you have with your health care provider. Document Revised: 02/13/2020 Document Reviewed: 12/21/2019 [employer] Patient Education ? 2022 [employer] Normal [facility] eGFRon 08-15-2023 eGFR 54 mL/min/1.73 m2 Low >=59 [facility] Comment on above: Order Comment: Order added by Discern Expert. Performed By: #### 7 [id number], [id number], [id number] #### [facility] [address] [place] [address] CHEMISTRYOrdered By: SYSTEM SYSTEM on 08-11-2023 Anion [...] 32.1 s Normal 25.1 - 36.5 second(s) [facility] [employer] Comment on above: Interpretive Data: [...] the same coagulation reagent and instrumentation as [facility]. Currently there are no coagulation studies available worldwide for children to 14 days, and no normal ranges. Heparin therapeutic range (represented by Anti-Factor Xa activity of 0.2 - 0.4 U/mL) corresponds to PTT of 56.6 - 109.0 sec. INR Coag (PPP) [Relative time] 1.17 {INR} Invalid Interpretation Code [facility] Comment on above: Interpretive Data: I NR results are specifically intended to assess patients stabilized on long-term Anticoagulation therapy suggested INR s Less Intensive Anticoagulation 2.0 3.0 Conventional Range 3.0 4.5 PT Coag (PPP) [Time] 13.1 s High 9.4 - 1 2.5 second(s) [facility] Comment on above: Interpretive Data: [...] the same coagulation reagent and instrumentation as [facility]. Currently there are no coagulation studies available [...] on 07-21-2023 Creatinine [Mass/Vol] 1.2 mg/dL 0.6-1.3 [facility] Comment on above: ER/ESD physician is notified/shown all ISTAT results.Critical values may be confirmed by laboratory testing ifdeemed necessary by ER attending doctor. ISTAT XRay CREon 07-21-2023 Creatinine [Mass/Vol] 1.2 mg/dL Normal 0.6-1.3 [facility] Comment on above: Result Comment: ER/E [place] physician is notified/shown all ISTAT results. Critical values may be confirmed by laboratory testing if deemed necessary by ER attending doctor. Performed By: #### I SCRE #### [facility] [address] [place] [address] ISTAT GFR > 60.0 Normal [facility] Comment on above: Result Comment: PERF ORMED BY: [place] [address] PATHOLOGIST SUPERVISOR SOUND TECHNICIAN ELVI MCNULTY M.D. Performed By: #### I SCRE #### [facility] [address] [place] [address] MR prostate wo/w conon 07-21 MR prostate wo/w con [facility] [place] [address] [place] [address] MRI Report Signed Patient: Alicja Reyes MR#: [id number] : 1955 Acct:[id number] Age/Sex: 68 / M ADM Date: 07/21/23 Loc: Room: Type: [facility] Attending Dr: Ramandeep Porter PA-C Copies to: [...] Schultz Jr., D.O.07/21/2023 1:08 PM Dictation Location: [place] [address] Transcribed By: [facility] 07/21/23 1308 Dictated By: Ghanshyam Schultz Jr, DO 07/21/23 1304 Signed By: 07/21/23 1308 Normal [facility] No Panel InformationOrdered By: Ramandeep Porter on 07-21-2023 Bedside Estimated GFR (eGFR) > 60.0 [facility] CHEMISTRYOrdered By: SYSTEM SYSTEM on [...] S_CA.0 Called to and read back by: ENGINEERING RECRUITER ELI at: 06/13/2023 18:59:55 by:ELI LAWSON Chloride [...] S_K:2.7 Called to and read back by: ENGINEERING RECRUITER ELI at: 06/13/2023 18:59:55 by:ELI LAWSON Sodium [...] g/dL Normal 3.3 - 5.0 gm/dL [facility] Remisol Albumin/Globulin [Mass ratio] 0.8 {ratio} Low 1.1 - 2.2 FT Remisol ALP [Catalytic activity/Vol] 80 [iU]/d Normal 21 - 98 Int._Unit/L FT Remisol ALT No additional P-5'-P [Catalytic activity/Vol] 19 [iU]/d Normal 6 - 46 Int._Unit/L FT [facility]isol Anion gap [Moles/Vol] 16 mmol/L Normal 6 - 16 mEq/L [facility] Remisol AST [Catalytic activity/Vol] 19 [iU]/d Normal [...] mg/dL Normal 0.5 - 1.3 mg/d L [facility] Remisol GFR/1.73 sq M.predicted among non-blacks MDRD (S/P/Bld) [Vol rate/Area] 59 mL/min/1.73 m2 Normal >=59mL/min/1.73 m2 [facility] Chem S Comment on above: Interpretive Data: C hronic kidney disease could be indicated at eGFR's of less than 60 mL/min/1.73m2. Kidney failure is indicated at less than 15 mL/min/1.73m2. Globulin (S) [Mass/Vol] 4.1 g/dL High 1.4 - 4.0 gm/dL [facility] Remisol Glucose [Mass/Vol] 337 mg/dL High 55 [...] for this result was chemiluminescence using Ephraim Dheere Bolo's Access [employer] PSA reagent. CHEMISTRYOrdered By: SYSTEM [...] BASO # 0.1 103/ul Normal 0.0-0.1 [facility] Comment on above: Performed By: #### C BC #### [facility] [address] [place] [address] [address] Pilo Jansen Basophils/100 WBC (Bld) 1.0 % Normal 0.2-2.0 [facility] Comment on above: Performed By: #### C BC #### [facility] [address] [place] [address] [address] Pilo Jansen EO # 0.1 103/ul Normal 0.0-0.7 [facility] Comment on above: Performed By: #### C BC #### [facility] [address] [place] [address] [address] Pilo Jansen Eosinophils/100 WBC (Bld) 2.1 % Normal 0.9-7.0 [facility] Comment on above: Performed By: #### C BC #### [facility] [address] [place] [address] Dr. Pilo Jansen Erythrocyte distribution width (RBC) [Ratio] 12.0 % Normal 11.0-15.0 [facility] Comment on above: Performed By: #### C BC #### [facility] [address] [place] [address] Dr. Pilo Jansen Hematocrit (Bld) [Volume fraction] 40.7 % Critically low 42.0-54.0 [facility] Comment on above: Performed By: #### C BC #### [facility] [address] [place] [address] Dr. Pilo Jansen Hemoglobin (Bld) [Mass/Vol] 13.4 g/dL Critically low 14.0-18.0 [facility] Comment on above: Performed By: #### C BC #### [facility] [address] [place] [address] Dr. Pilo Jansen IG # 0.02 10e3/ul Normal 0.00-0.03 [facility] Comment on above: Performed By: #### C BC #### [facility] [address] [place] [address] Dr. Pilo Jansen IG % 0.4 % Normal 0.0-0.5 [facility] Comment on above: Performed By: #### C BC #### [facility] [address] [place] [address] Dr. Pilo Jansen LYMPH # 1.4 103/ul Normal 1.2-3.8 [facility] Comment on above: Performed By: #### C BC #### [facility] [address] [place] [address] Dr. Pilo Jansen Lymphocytes/100 WBC (Bld) 26.1 % Normal 20.5-60.0 [facility] Comment on above: Performed By: #### C BC #### [facility] [address] [place] [address] Dr. Pilo Jansen MANUAL DIFF REQ NO Normal [facility] Comment on above: Performed By: #### C BC #### [facility] [address] [place] [address] Dr. Pilo Jansen MCH (RBC) [Entitic mass] 33.2 pg Normal 25.9-34.0 [facility] Comment on above: Performed By: #### C BC #### [facility] [address] [place] [address] Dr. Pilo Jansen MCHC (RBC) [Mass/Vol] 32.9 g/dL Normal 29.9-35.2 [facility] Comment on above: Performed By: #### C BC #### [facility] [address] [place] [address] Dr. Pilo Jansen MCV (RBC) [Entitic vol] 100.7 fL Critically high 80.0-94.0 [facility] Comment on above: Performed By: #### C BC #### [facility] [address] [place] [address] Dr. Pilo Jansen MONO # 0.5 103/ul Normal 0.3-0.8 [facility] Comment on above: Performed By: #### C BC #### [facility] [address] [place] [address] Dr. Pilo Jansen Monocytes/100 WBC (Bld) 9.6 % Normal 1.7-12.0 [facility] Comment on above: Performed By: #### C BC #### [facility] [address] [place] [address] Dr. Pilo Jansen NEUT # 3.2 103/ul Normal 1.4-6.5 [facility] Comment on above: Performed By: #### C BC #### [facility] [address] [place] [address] Dr. Pilo Jansen Neutrophils/100 WBC (Bld) 60.8 % Normal 43.0-75.0 [facility] Comment on above: Performed By: #### C BC #### [facility] [address] [place] [address] Dr. Pilo Jansen Platelet mean volume (Bld) [Entitic vol] 9.3 fL Critically low 9.5-13.5 [facility] Comment on above: Performed By: #### C BC #### [facility] [address] [place] [address] [address] Pilo Jansen PLT 204 103/ul Normal 150-450 [facility] Comment on above: Performed By: #### C BC #### [facility] [address] [place] [address] Dr. Pilo Jansen RBC 4.04 106/ul Critically low 4.70-6.10 [facility] Comment on above: Performed By: #### C BC #### [facility] [address] [place] [address] Dr. Pilo Jansen WBC 5.2 103/ul Normal 4.0-11.0 [facility] Comment on above: Performed By: #### C BC #### [facility] [address] [place] [address] Dr. Pilo Jansen GLYCOHEMOGLOBIN A1Con 2022 ADA RECOMMENDATION SEE BELOW Normal [facility] Comment on above: Result Comment: ADA RECOMMENDED LIMIT 4.0 - 6.0 ADA THERAPEUTIC TARGET < 7.0 ACTION SUGGESTED > 7.0 Performed By: #### A 1C #### [facility] [address] [place] [address] Dr. Pilo Jansen Glucose [Mass/Vol] 189 mg/dL Normal [facility] Comment on above: Performed By: #### A 1C #### [facility] [address] [place] [address] Dr. Pilo Jansen HbA1c (Bld) [Mass fraction] 8.2 % Critically high 4.5-6.2 [facility] Comment on above: Performed By: #### A 1C #### [facility] [address] [place] [address] Dr. Pilo Jansen LIPID PROFILEon 07-13-2022 CHOL-HDL RATIO NORM SEE BELOW Normal [facility] Comment on above: Result Comment: 3.3 - 4.4 LOW RISK 4.4 - 7.1 AVERAGE RISK 7.1 - 11.0 MODERATE RISK >11.0 HIGH RISK Performed By: #### L IPID, CMP #### [facility] [address] [place] [address] Dr. Pilo Jansen Cholesterol [Mass/Vol] 157 mg/dL Normal <=200 [facility] Comment on above: Performed By: #### L IPID, CMP #### [facility] [address] [place] [address] [address] Pilo Jansen Cholesterol in HDL [Mass/Vol] 53 mg/dL Normal 40-60 [facility] Comment on above: Performed By: #### L IPID, CMP #### [facility] [address] [place] [address] [address] Pilo Jansen Cholesterol in LDL [Mass/Vol] 81.8 mg/dL Normal [facility] Comment on above: Performed By: #### L IPID, CMP #### [facility] [address] [place] [address] [address] Pilo Jansen Cholesterol.total/Cho lesterol in HDL [Mass ratio] 3.0 {ratio} Normal [facility] Comment on above: Performed By: #### L IPID, CMP #### [facility] [address] [place] [address] Dr. Pilo Jansen HDL NORMAL > or = 60 mg/dl - LO W CARDIOVASCULAR RISK <40 mg/dl - HIGH CARDIOVASCULAR RISK Normal [facility] Comment on above: Performed By: #### L IPID, CMP #### [facility] [address] [place] [address] Dr. Pilo Jansen LDL CALC NORMAL SEE BELOW Normal [facility] Comment on above: Result Comment: <100 mg/dl OPTIMAL 100 - 129 mg/dl NEAR OR ABOVE OPTIMAL 130 - 159 mg/dl BORDERLINE HIGH 160 - 189 mg/dl HIGH >190 mg/dl VERY HIGH Performed By: #### L IPID, CMP #### [facility] [address] [place] [address] [address] Pilo Jansen Triglyceride [Mass/Vol] 111 mg/dL Normal <=150 [facility] Comment on above: Performed By: #### L IPID, CMP #### [facility] [address] [place] [address] Dr. Pilo Jansen VLDL CALC 22.2 mg/dL Normal [facility] Comment on above: Performed By: #### L IPID, CMP #### [facility] [address] [place] [address] [address] Pilo Jansen PROF 14(COMP METB)on 023 Albumin [Mass/Vol] 3.9 g/dL Normal 3.4-5.0 [facility] Comment on above: Performed By: #### L IPID, CMP #### [facility] [address] [place] [address] Dr. Pilo Jansen Albumin/Globulin [Mass ratio] 1.1 {ratio} Normal [facility] Comment on above: Performed By: #### L IPID, CMP #### [facility] [address] [place] [address] [address] Pilo Jansen ALP [Catalytic activity/Vol] 81 U/L Normal 46-116 [facility] Comment on above: Performed By: #### L IPID, CMP #### [facility] [address] [place] [address] Dr. Pilo Jansen ALT [Catalytic activity/Vol] 28 U/L Normal 16-63 [facility] Comment on above: Performed By: #### L IPID, CMP #### [facility] [address] [place] [address] Dr. Pilo Jansen Anion gap [Moles/Vol] 13.6 mmol/L Normal [facility] Comment on above: Performed By: #### L IPID, CMP #### [facility] [address] [place] [address] Dr. Pilo Jansen AST [Catalytic activity/Vol] 23 U/L Normal 15-37 [facility] Comment on above: Performed By: #### L IPID, CMP #### [facility] [address] [place] [address] Dr. Pilo Jansen Bilirubin [Mass/Vol] 0.8 mg/dL Normal 0.2-1.0 [facility] Comment on above: Performed By: #### L IPID, CMP #### [facility] [address] [place] [address] Dr. Pilo Jansen Calcium [Mass/Vol] 9.3 mg/dL Normal 8.5-10.1 [facility] Comment on above: Performed By: #### L IPID, CMP #### [facility] [address] [place] [address] [address] Pilo Jansen Chloride [Moles/Vol] 101 mmol/L Normal 98-107 [facility] Comment on above: Performed By: #### L IPID, CMP #### [facility] [address] [place] [address] [address] Pilo Jansen CO2 [Moles/Vol] 29.7 mmol/L Normal 21.0-32.0 [facility] Comment on above: Performed By: #### L IPID, CMP #### [facility] [address] [place] [address] Dr. Pilo Jansen Creatinine [Mass/Vol] 0.86 mg/dL Normal 0.70-1.30 [facility] Comment on above: Performed By: #### L IPID, CMP #### [facility] [address] [place] [address] Dr. Pilo Jansen EGFR-AF CHILEAN >60 Normal >=60 [facility] Comment on above: Performed By: #### L IPID, CMP #### [facility] [address] [place] [address] Dr. Pilo Jansen EGFR-NON AF CHILEAN >60 Normal >=60 [facility] Comment on above: Performed By: #### L IPID, CMP #### [facility] [address] [place] [address] Dr. Pilo Jansen Globulin (S) [Mass/Vol] 3.7 g/dL Normal [facility] Comment on above: Performed By: #### L IPID, CMP #### [facility] [address] [place] [address] Dr. Pilo Jansen Glucose [Mass/Vol] 186 mg/dL Critically high 74-106 [facility] Comment on above: Performed By: #### L IPID, CMP #### [facility] [address] [place] [address] Dr. Pilo Jansen Potassium [Moles/Vol] 4.3 mmol/L Normal 3.5-5.1 [facility] Comment on above: Performed By: #### L IPID, CMP #### [facility] [address] [address] [address] Pilo Jansen Protein [Mass/Vol] 7.6 g/dL Normal 6.4-8.2 [facility] Comment on above: Performed By: #### L IPID, CMP #### [facility] [address] [place] [address] [address] Pilo Jansen Sodium [Moles/Vol] 140 mmol/L Normal 136-145 [facility] Comment on above: Performed By: #### L IPID, CMP #### [facility] [address] [address] [address] Pilo Jansen Urea nitrogen [Mass/Vol] 10.0 mg/dL Normal 7.0-18.0 [facility] Comment on above: Performed By: #### L IPID, CMP #### [facility] [address] [place] [address] [address] Pilo Jansen Urea nitrogen/Creatinine [Mass ratio] 11.6 mg/mg Normal [facility] Comment on above: Performed By: #### L IPID, CMP #### [facility] [address] [address] [address] Pilo Jansen Vital Signs Date Time Vital Sign Value Performing Clinician Nicholas mcleod 03-18-2025 08: Body height 175.26 cm Ivaniakierra Pardaa DO Work Phone: [facility] 03-18-2025 08:040 Body mass index (BMI) [Ratio] 35.7 kg/m2 Ivania Karma DO Work Phone: [facility] 03-18-2025 08: Body weight 109.76 kg Ivania Karma DO Work Phone: [facility] 03-18-2025 08:040 Diastolic blood pressure 82 mm[Hg] Ivania Karma DO Work Phone: [facility] 03-18-2025 08:13040 Heart rate 106 /min Ivania Karma DO Work Phone: [facility] 03-18-2025 08:13-0400 Respiratory rate 20 /min Ivania Karma DO Work Phone: [facility] 03-18-2025 08:13-0400 SaO2% (BldA) [Mass fraction] 99 % Ivania Karma DO Work Phone: [facility] 03-18-2025 08:13-0400 Systolic blood pressure 126 mm[Hg] Ivania Karma DO Work Phone: [facility] 08-14-2024 14:01-0400 Body height 175.3 cm Chloe WORLEY Work Phone: [facility] 08-14-2024 14:01-0400 Body mass index (BMI) [Ratio] 37.36 kg/m2 Chloe WORLEY Work Phone: [facility] 08-14-2024 14:01-0400 Body weight 114.76 kg Chloe Hawthorne PA Work Phone: [facility] 01-13-2024 08:53-0400 Blood Pressure Location Javier Kirnus [facility] 01-13-2024 08:53-0400 Diastolic blood pressure 78 mm[Hg] Javier Kirnus [facility] 01-13-2024 08:53-0400 Heart rate 79 /min Javier Kirnus [facility] 01-13-2024 08:53-0400 Respiratory rate 18 /min Javier Kirnus [facility] 01-13-2024 08:53-0400 SaO2% (BldA) [Mass fraction] 99 % Javier Kirnus [facility] 01-13-2024 08:53-0400 Systolic blood pressure 138 mm[Hg] Javier Kirnus [facility] 01-10-2024 08:19-0400 Blood Pressure Location Bryant TAO [facility] 01-10-2024 08:19-0400 Diastolic blood pressure 74 mm[Hg] Bryant TAO [facility] 01-10-2024 08:19-0400 Heart rate 94 /min Bryant TAO [facility] 01-10-2024 08:19-0400 Systolic blood pressure 138 mm[Hg] Bryant TAO [facility] 12-30-2023 14:00-0400 Hourly Rounding Artemio Marshall [facility] 12-30-2023 14:00-0400 Promise to Return Artemio Marshall [facility] 12-30-2023 13:00-0400 Hourly Rounding Artemio Marshall [facility] 12-30-2023 13:00-0400 Promise to Return Artemio Marshall [facility] 12-30-2023 12:34-0400 Diastolic blood pressure 100 mm[Hg] Artemio Marshall [facility] 12-30-2023 12:34-0400 Systolic blood pressure 161 mm[Hg] Artemio Marshall [facility] 12-30-2023 12:00-0400 Hourly Rounding Artemio Marshall [facility] 12-30-2023 12:00-0400 Promise to Return Artemio Marshall [facility] 12-30-2023 11:50-0400 Heart rate 104 /min Artemio Marshall [facility] 12-30-2023 11:50-0400 SaO2% (BldA) [Mass fraction] 98 % Artemio Olivares [facility] 12-30-2023 11:45-0400 Body temperature 97.7 [degF] Artemio Olivares [facility] 12-30-2023 11:45-0400 Diastolic blood pressure 100 mm[Hg] Artemio Olivares [facility] 12-30-2023 11:45-0400 Mean blood pressure 120 mm[Hg] Artemio Olivares [facility] 12-30-2023 11:45-0400 Systolic blood pressure 161 mm[Hg] Artemio Olivares [facility] 12-30-2023 08:00-0400 Blood Pressure Location Artemio Olivares [facility] 12-30-2023 08:00-0400 Body temperature 98.6 [degF] Artemio Olivares [facility] 12-30-2023 08:00-0400 Diastolic blood pressure 91 mm[Hg] Artemio Olivares [facility] 12-30-2023 08:00-0400 Heart rate 100 /min Artemio Olivares [facility] 12-30-2023 08:00-0400 Systolic blood pressure 173 mm[Hg] Artemio Leroycker [facility] 12-30-2023 04:00-0400 Heart rate 74 /min Artemio Leroycker [facility] 12-30-2023 03:39-0400 Heart rate 75 /min Artemio Leroycker [facility] 12-30-2023 03:39-0400 SaO2% (BldA) [Mass fraction] 97 % Artemio Roer [facility] 12-30-2023 03:39-0400 Body temperature 97.52 [degF] Artemio Roer [facility] 12-30-2023 03:39-0400 Mean blood pressure 101 mm[Hg] Artemio Roer [facility] 12-29-2023 21:20-0400 Body temperature 97.16 [degF] Artemio Roer [facility] 12-29-2023 21:18-0400 Mean blood pressure 121 mm[Hg] Artemio Roer [facility] 12-29-2023 20:00-0400 Mean blood pressure 106 mm[Hg] Artemio Roer [facility] 12-29-2023 16:57-0400 Blood Pressure Location Artemio Roer [facility] 12-29-2023 16:57-0400 Body temperature 98.42 [degF] Artemio Roer [facility] 12-29-2023 16:00-0400 Mean blood pressure 118 mm[Hg] Artemio Roer [facility] 12-29-2023 16:00-0400 Respiratory rate 20 /min Artemio Leroycker [facility] 12-29-2023 15:00-0400 Mean blood pressure 138 mm[Hg] Artemio Leroycker [facility] 12-29-2023 15:00-0400 Respiratory rate 14 /min Artemio Roer [facility] 12-29-2023 14:07-0400 Respiratory rate 23 /min Artemio Olivares [facility] 12-29-2023 13:50-0400 Body temperature 97.88 [degF] Artemio Olivares [facility] 12-29-2023 13:50-0400 Respiratory rate 18 /min Artemio Olivares [facility] 10-19-2023 08:26-0400 Diastolic blood pressure 88 mm[Hg] Jacinto Ramirez [facility] 10-19-2023 08:26-0400 Mean blood pressure 111 mm[Hg] Jacinto Ramirez [facility] 10-19-2023 08:26-0400 Systolic blood pressure 158 mm[Hg] Jacinto Ramirez [facility] 10-19-2023 08:12-0400 Blood Pressure Location Jacinto Ramirez [facility] 10-19-2023 08:12-0400 Diastolic blood pressure 84 mm[Hg] Jacinto Ramirez [facility] 10-19-2023 08:12-0400 Heart rate 94 /min Jacinto Ramirez [facility] 10-19-2023 08:12-0400 SaO2% (BldA) [Mass fraction] 98 % Jacinto Ramirez [facility] 10-19-2023 08:12-0400 Systolic blood pressure 168 mm[Hg] Jacinto Ramirez [facility] 09-22-2023 12:35-0400 Blood Pressure Location Bryant TAO [facility] 09-22-2023 12:35-0400 Body temperature 97.16 [degF] Bryant TAO [facility] 09-22-2023 12:35-0400 Diastolic blood pressure 84 mm[Hg] Bryant TAO [facility] 09-22-2023 12:35-0400 Heart rate 84 /min Bryant TAO [facility] 09-22-2023 12:35-0400 Systolic blood pressure 136 mm[Hg] Bryant TAO [facility] 09-09-2023 14:25-0400 Diastolic blood pressure 79 mm[Hg] MD Nancy Grace Work Phone: [facility] 09-09-2023 14:25-0400 Heart rate 85 /min MD Nancy Grace Work Phone: [facility] 09-09-2023 14:25-0400 Respiratory rate 16 /min MD Nancy Grace Work Phone: [facility] 09-09-2023 14:25-0400 SaO2% (BldA) [Mass fraction] 99 % MD Nancy Grace Work Phone: [facility] 09-09-2023 14:25-0400 Systolic blood pressure 131 mm[Hg] MD Nancy Grace Work Phone: [facility] 09-09-2023 13:40-0400 Inhaled oxygen flow rate 8 L/min MD Nancy Grace Work Phone: [facility] 09-09-2023 12:40-0400 Body height 175.26 cm MD Nancy Grace Work Phone: [facility] 09-09-2023 12:40-0400 Body mass index (BMI) [Ratio] 34.1 kg/m2 MD Nancy Grace Work Phone: [facility] 09-09-2023 12:40-0400 Body weight 104.77 kg MD Nancy Grace Work Phone: [facility] 09-09-2023 11:49-0400 Body temperature 98.8 [degF] MD Nancy Grace Work Phone: [facility] 09-01-2023 11:42-0400 Diastolic blood pressure 98 mm[Hg] Bryant COOK [facility] 09-01-2023 11:42-0400 Systolic blood pressure 170 mm[Hg] Bryant COOK [facility] 09-01-2023 11:40-0400 Diastolic blood pressure 99 mm[Hg] Bryant COOK [facility] 09-01-2023 11:40-0400 Systolic blood pressure 190 mm[Hg] Bryant COOK [facility] 09-01-2023 11:08-0400 Diastolic blood pressure 102 mm[Hg] Bryant COOK [facility] 09-01-2023 11:08-0400 Systolic blood pressure 178 mm[Hg] Bryant COOK [facility] 09-01-2023 10:50-0400 Heart rate 96 /min Bryant COOK [facility] 09-01-2023 10:23-0400 Blood Pressure Location Bryant COOK [facility] 09-01-2023 10:23-0400 Heart rate 108 /min Bryant COOK [facility] 09-01-2023 10:23-0400 Mean blood pressure 147 mm[Hg] Bryant COOK [facility] 09-01-2023 10:22-0400 Heart rate 108 /min Bryant COOK [facility] 09-01-2023 10:22-0400 SaO2% (BldA) [Mass fraction] 98 % Bryant COOK [facility] 09-01-2023 10:22-0400 Blood Pressure Location Bryant TAO [facility] 09-01-2023 10:22-0400 Mean blood pressure 150 mm[Hg] Bryant TAO [facility] 09-01-2023 10:21-0400 Respiratory rate 20 /min Bryant TAO [facility] 09-01-2023 10:21-0400 Body temperature 97.7 [degF] Bryant TAO [facility] 08-19-2023 11:59-0400 Diastolic blood pressure 98 mm[Hg] Troy Philipofferson [facility] 08-19-2023 11:59-0400 Mean blood pressure 125 mm[Hg] Troy Christofferson [facility] 08-19-2023 11:59-0400 Systolic blood pressure 180 mm[Hg] Troy Christofferson [facility] 08-19-2023 11:52-0400 Diastolic blood pressure 100 mm[Hg] Troy Christofferson [facility] 08-19-2023 11:52-0400 Heart rate 106 /min Troy Christofferson [facility] 08-19-2023 11:52-0400 SaO2% (BldA) [Mass fraction] 97 % Troy Christofferson [facility] 08-19-2023 11:52-0400 Systolic blood pressure 170 mm[Hg] Troy Christofferson [facility] 08-11-2023 09:41-0500 Diastolic blood pressure 96 mm[Hg] Bryant TAO [facility] 08-11-2023 09:41-0500 Heart rate 84 /min Bryant TAO [facility] 08-11-2023 09:41-0500 Mean blood pressure 126 mm[Hg] Bryant TAO [facility] 08-11-2023 09:41-0500 Systolic blood pressure 186 mm[Hg] Bryant TAO [facility] 08-11-2023 09:41-0500 Heart rate 88 /min Bryant TAO [facility] 08-11-2023 09:41-0500 SaO2% (BldA) [Mass fraction] 99 % Bryant TAO [facility] 08-11-2023 09:40-0500 Diastolic blood pressure 95 mm[Hg] Bryant TAO [facility] 08-11-2023 09:40-0500 Mean blood pressure 127 mm[Hg] Bryant TAO [facility] 08-11-2023 09:40-0500 Systolic blood pressure 191 mm[Hg] Bryant TAO [facility] 08-11-2023 09:40-0500 Respiratory rate 20 /min Bryant TAO [facility] 07-27-2023 11:03-0500 Blood Pressure Location RAMANDEEP MINDI [facility] 07-27-2023 11:03-0500 Diastolic blood pressure 76 mm[Hg] RAMANDEEP JUNIORRY [facility] 07-27-2023 11:03-0500 Heart rate 84 /min RAMANDEEP PORTER [facility] 07-27-2023 11:03-0500 Systolic blood pressure 132 mm[Hg] RAMANDEEP PORTER [facility] [place] 07-21-2023 10:06-0500 Body height 175.26 cm MD Nancy Grace Work Phone: [facility] 07-21-2023 10:06-0500 Body weight 107.04 kg MD Nancy Grace Work Phone: [facility] 07-18-2023 06:45-0500 Body height 175.26 cm MD Nancy Grace Work Phone: [facility] 07-18-2023 06:45-0500 Body weight 107.04 kg MD Nancy Grace Work Phone: [facility] 07-15-2023 13:58-0500 Diastolic blood pressure 88 mm[Hg] Troy Coulter [facility] 07-15-2023 13:58-0500 Heart rate 99 /min Troy Coulter [facility] 07-15-2023 13:58-0500 SaO2% (BldA) [Mass fraction] 98 % Troy Coulter [facility] 07-15-2023 13:58-0500 Systolic blood pressure 142 mm[Hg] Troy Coulter [facility] 05-16-2023 07:57-0500 Diastolic blood pressure 90 mm[Hg] Nancy Grace [facility] 05-16-2023 07:57-0500 Mean blood pressure 111 mm[Hg] Nancy Grace [facility] 05-16-2023 07:57-0500 Systolic blood pressure 152 mm[Hg] Nancy Grace [facility] Encounters Encounter Date Encounter Type Care Provider Facility Start: 07-09-2025 ambulatory Nancy Grace Facility :[facility] Start: 04-09-2025 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 MARINO A SHIRA Fa cility:[facility] Start: 03-27-2025 ambulatory Bryant TAO Facility :[facility] Start: 03-19-2025 ambulatory Bryant TAO Facility :[facility] [place] Start: 03-18-2025 End: 03-18-2025 ambulatory Ivania Parada DO Work Phone: [facility] Work Phone: Start: 03-18-2025 End: 03-18-2025 Patient encounter procedure Ivaniakierra Patelp DO -[facility] [place] Work Phone: Start: 03-04-2025 End: 03-04-2025 ambulatory MARINO A SHIRA Facility:[facility] Start: 01-29-2025 End: 01-29-2025 ambulatory MARINO A SHIRA Facility:[facility] Start: 01-29-2025 End: 01-29-2025 ambulatory MARINO A SHIRA Facility:[facility] [place] Start: 01-08-2025 End: 01-08-2025 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 MARINO A SHIRA Facility:[facility] Start: 11-14-2024 End: 11-14-2024 Lab Drop off MARINO A SHIRA [facility] Start: 11-14-2024 End: 11-14-2024 ambulatory MARINO A SHIRA Facility:[facility] Start: 10-08-2024 ambulatory MARINO SHIRA Facility : [facility] Start: 10-08-2024 End: 10-08-2024 Lab Drop off Nancy Grace [facility] Start: 10-08-2024 End: 10-08-2024 ambulatory MD Nancy Grace Facility:[facility] Start: 09-25-2024 End: 09-25-2024 Bamboo flowsheet Chloe WORLEY Work Phone: [facility] Start: 09-25-2024 End: 09-25-2024 Bamboo flowsheet Chloe J Christoph PA Work Phone: [facility] Start: 09-25-2024 End: 09-25-2024 Postop follow up visit related to original px Chloe Bird Christoph PA Work Phone: [facility] Comment on above: S/P carpal tunnel re lease (Primary Dx) Start: 09-25-2024 End: 09-25-2024 ambulatory CHLOE J CHRISTOPH Not Available Start: 09-24-2024 End: 09-24-2024 Lab Drop off RAMANDEEP PORTER [facility] Start: 09-24-2024 End: 09-24-2024 ambulatory Bryant Jaspreet TAO Facility:[facility] Start: 09-11-2024 End: 09-11-2024 Bamboo flowsheet Chloe Pelon Christoph PA Work Phone: [facility] Start: 09-11-2024 End: 09-11-2024 Bamboo flowsheet Chloe J Christoph PA Work Phone: [facility] Start: 09-11-2024 End: 09-11-2024 Postop follow up visit related to original px Chloe J Christoph PA Work Phone: [facility] Comment on above: S/P carpal tunnel re lease (Primary Dx) Start: 09-11-2024 End: 09-11-2024 ambulatory CHLOE Pelno CHRISTOPH Not Available Start: 09-03-2024 End: 09-03-2024 ambulatory RAMANDEEP PORTER Facility:[facility] Start: 08-28-2024 End: 09-03-2024 Telephone encounter Jr. Lauren Dillon DO Work Phone: [facility] Start: 08-22-2024 End: 08-23-2024 Lab Drop off Nancy Grace [facility] Start: 08-22-2024 End: 08-23-2024 ambulatory Nancy Grace Facility:[facility] Start: 08-21-2024 End: 08-21-2024 ambulatory Estefania Reddy Facility:[facility] [place] Start: 08-17-2024 End: 08-17-2024 Lab Drop off Nancy Grace [facility] Start: 08-17-2024 End: 08-17-2024 ambulatory MD Nancy Grace Facility:[facility] [place] Start: 08-14-2024 End: 08-14-2024 ambulatory CHLOE HAWTHORNE [facility] Start: 08-14-2024 Encounter for other preprocedural examination CHLOE HAWTHORNE [facility] Start: 08-14-2024 End: 08-14-2024 Patient encounter procedure Chloe WORLEY Work Phone: [facility] Comment on above: Preop examination Start: 08-14-2024 End: 08-14-2024 Preprocedural examination done Chloe WORLEY Work Phone: [facility] Start: 08-14-2024 End: 08-14-2024 Bamboo flowsheet Chloe Hawthorne PA Work Phone: [facility] Start: 08-14-2024 End: 08-14-2024 Bamboo flowsheet Chloe Hawthorne PA Work Phone: [facility] Start: 08-14-2024 End: 08-14-2024 External Result Encounter Chloe Hawthorne PA Work Phone: [facility] External Department Unsolicited Start: 08-14-2024 End: 08-14-2024 ambulatory CHLOE HAWTHORNE Not Available Start: 08-09-2024 End: 08-09-2024 Orders Only Chloe Hawthorne PA Work Phone: [facility] Comment on above: Encounter for other preprocedural examination Start: 08-09-2024 End: 08-09-2024 Patient encounter status Chloe Hawthorne PA Work Phone: [employer] Start: 07-24-2024 End: 07-24-2024 ambulatory Estefania X Maureen Facility: [place] Start: 07-24-2024 End: 07-24-2024 Patient encounter procedure Estefania Reddy [facility] [place] Start: 07-18-2024 End: 07-18-2024 Bamboo flowsheet [...] End: 07-16-2024 Lab Drop off Nancy Grace [facility] Start: 07-16-2024 End: 07-16-2024 ambulatory Nancy Grace Facility: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 MARINO Butler SHIRA Facility:[facility] Start: 02-22-2024 End: 02-22-2024 ambulatory Ramos Akkina Facility:[facility] Start: 02-22-2024 End: 02-22-2024 Patient encounter procedure Ramos Akkina [facility] Start: 01-30-2024 End: 01-30-2024 Lab Drop off Nancy Grace [facility] Start: 01-30-2024 End: 01-30-2024 ambulatory Nancy Grace Facility:[facility] Start: 01-13-2024 End: 01-13-2024 ambulatory XXXX NONE Facility:[facility] Start: 01-13-2024 End: 01-13-2024 Patient encounter procedure Javier Goins [facility] Start: 01-11-2024 End: 01-11-2024 Lab Drop off Nancy Grace [facility] Start: 01-11-2024 End: 01-11-2024 ambulatory Nancy Grace Facility:[facility] Start: 01-10-2024 End: 01-10-2024 ambulatory Bryant TAO Facility: [place] Start: 01-10-2024 End: 01-10-2024 Patient encounter procedure Bryant TAO [facility] [place] Start: 01-05-2024 End: 01-05-2024 ambulatory MD Nancy Grace [facility] Start: 01-02-2024 End: 02-02-2024 ambulatory Nancy Grace Facility:CD:[id number] Start: 12-29-2023 End: 12-30-2023 Evaluation and management of inpatient Ramos Euceda Facility:[facility] Start: 12-29-2023 Emergency department patient visit Ronny Kimi Cartagena Facility:[facility] Start: 12-29-2023 End: 12-30-2023 Evaluation and management of inpatient Artemio ReddMalgorzata Olivares [facility] Start: 12-27-2023 End: 12-27-2023 Lab Drop off Nancy Grace [facility] Start: 12-27-2023 End: 12-27-2023 ambulatory Nancy Grace Facility:[facility] Start: 12-22-2023 End: 12-22-2023 Lab Drop off MARINO KEARNS [facility] Start: 12-22-2023 End: 12-22-2023 ambulatory MARINO KEARNS Facility:[facility] Start: 11-28-2023 End: 11-28-2023 ambulatory Bryant TAO Facility:[facility] Start: 11-28-2023 End: 11-28-2023 Patient encounter procedure Bryant TAO [facility] Start: 10-19-2023 End: 10-19-2023 ambulatory Jacinto Ramirez Facility:[facility] Start: 10-19-2023 End: 10-19-2023 Patient encounter procedure Jacinto Ramirez [facility] Start: 09-22-2023 End: 09-22-2023 ambulatory Bryant TAO Facility:[facility] [place] Start: 09-22-2023 End: 09-22-2023 Patient encounter procedure Bryant TAO [facility] [place] Start: 09-09-2023 End: 09-09-2023 ambulatory Nancy Grace Facility:[facility] Start: 09-09-2023 End: 09-09-2023 Admission to same day surgery center MD Nancy Grace Work Phone: [facility] [place] Start: 09-09-2023 End: 09-09-2023 ambulatory MD Nancy Grace Work Phone: [facility] Work Phone: Start: 09-09-2023 End: 09-09-2023 ambulatory Bryant TAO Facility:CD:[id number] Start: 09-01-2023 End: 09-01-2023 Admission to same day surgery center Bryant TAO [facility] Start: 09-01-2023 End: 09-01-2023 ambulatory Bryant TAO Facility:[facility] Start: 08-19-2023 End: 08-19-2023 ambulatory XXXX NONE Facility:[facility] Start: 08-19-2023 End: 08-19-2023 Patient encounter procedure Troy Coulter [facility] Start: 08-15-2023 End: 08-15-2023 Lab Drop off Nancy Grace [facility] Start: 08-15-2023 End: 08-15-2023 ambulatory Nancy Grace Facility:[facility] Start: 08-11-2023 End: 08-11-2023 Patient encounter procedure Bryant TAO [facility] Start: 08-05-2023 End: 08-05-2023 Patient encounter procedure Troy Coulter [facility] Start: 08-02-2023 End: 08-02-2023 Patient encounter procedure Nancy Grace [facility] Start: 07-27-2023 End: 07-27-2023 Patient encounter procedure RAMANDEEP PORTER [facility] [place] Start: 07-21-2023 End: 07-21-2023 ambulatory Ramandeep Porter Facility:[facility] Start: 07-21-2023 End: 07-21-2023 ambulatory MD Nancy Grace Work Phone: [facility] Work Phone: Start: 07-21-2023 End: 07-21-2023 Patient encounter procedure MD Nancy Grace Work Phone: [facility] [place] Work Phone: Start: 07-18-2023 End: 07-18-2023 ambulatory MD Nancy Grace Work Phone: [facility] Work Phone: Start: 07-18-2023 End: 07-18-2023 Patient encounter procedure MD Nancy Grace Work Phone: [facility] [place] Work Phone: Start: 07-15-2023 End: 07-15-2023 Patient encounter procedure Troy Coulter [facility] Start: 06-28-2023 End: 06-28-2023 Lab Drop off Nancy Grace [facility] Start: 06-23-2023 End: 06-23-2023 Patient encounter procedure Manolo ALLEN [facility] Start: 06-22-2023 End: 06-22-2023 Patient encounter procedure RAMANDEEP Peter MINDI [facility] Start: 06-21-2023 End: 06-21-2023 Patient encounter procedure RAMANDEEP E MINDI [facility] Start: 06-13-2023 End: 06-13-2023 Lab Drop off Nancy Grace [facility] Start: 05-27-2023 End: 05-27-2023 Lab Drop off Christy L Ese [facility] Start: 05-26-2023 End: 05-26-2023 Lab Drop off Nancy Grace [facility] Start: 05-18-2023 End: 06-10-2023 Pre-admission assessment Nancy Grace [facility] Start: 05-16-2023 End: 05-16-2023 Lab Drop off Nancy Grace [facility] Start: 04-04-2023 End: 04-04-2023 Lab Drop off Christy L Ese [facility] Start: 04-04-2023 End: 04-04-2023 Lab Drop off Christy Mulligan [facility] Start: 01-20-2023 End: 01-20-2023 Lab Drop off Nancy Grace [facility] Start: 07-13-2022 End: 07-14-[address] TYRESE [...] above: Performed By: #### P SAD #### [facility] [address] [place] [address] Dr. Pilo Jansen Arthroscopy Nancy Grace Comment [...] Activity Detail Author Start: 03-18-2025 Patient referral [facility] Work Phone: Start: 09-25-2024 End: 09-25-2024 [...] Preop examination Expected: 08/09/2024 (Approximate), Expires: 08/09/2025 [facility] Work Phone: Comment on above: Expected: 08/09/2024 (Approximate), Expires: 08/09/2025 Start: 08-09-2024 End: 08-09-2025 Basic metabolic 2000 panel - Serum or Plasma Basic Metabolic Panel Lab Routine Encounter for other preprocedural examination Expected: 08/09/2024, Expires: 08/09/2025 [facility] Work Phone: Comment on above: Expected: 08/09/2024 , Expires: 08/09/2025 Start: 07-18-2024 End: 07-18-2024 Patient encounter procedure 07/18/2024 8:30 AM EST Office Visit [facility] [address] [place] [address] Jr. Lauren Dillon, DO [address] [facility] [address] [place] [address] Arrived [facility] Comment on above: Arrived Start: 05-22-2024 End: 05-22-2024 Patient encounter procedure 05/22/2024 8:30 AM EST Procedure Visit [facility] [address] [place] [id number] Carlos Howe, [address] [place] [id number] Arrived [facility] Comment on above: Arrived Start: 02-14-2024 Screening for malign ant neoplasm of colon [facility] Start: 02-05-2024 Influenza vaccination Influenza Vacc ine [facility] Start: 09-09-2023 End: 09-09-2023 [facility] Start: 03-09-2021 Pneumococcal Vaccine : 65+ Years (2 of 2 - PPSV23 or PCV20) Pneumococcal Vaccine: 65+ Years (2 of 2 - PPSV23 or PCV20) [facility] Start: 03-09-2021 Pneumococcal Vaccine : 65+ Years (2 of 2 - PPSV23) Pneumococcal Vaccine: 65+ Years (2 of 2 - PPSV23) [facility] Start: 2019 Fall Risk Screening Fall Risk Screen [facility] Start: 2004 Administration of varicella zoster vaccine Zoster (Shingles) Vaccine (1 of 2) [facility] Start: 1973 DTaP,Tdap and Td Vaccines (1 - Tdap) DTaP,Tdap and Td Vaccines (1 - Tdap) [facility] Start: 1972 Adult BMI Screening Adult BMI Screen ing [facility] Start: 1966 Depression Screening Depression Scre ening [facility] Start: 1966 Tobacco Screening Tobacco Screening [facility] Start: 1954 Screening for malign ant neoplasm of colon [facility] metabo lic 2000 panel - Serum or Plasma [facility] Patient referral [facility] Work Phone: [facility] Immunizations Immunization Date Immunization Notes Care Provider Fa cility 03-20-2024 influenza virus vaccine, unspecified formulation Nancy Grace [facility] 03-20-2024 SARS-CoV-2 mRNA (tozinameran 5y-11y) vaccine Nancy Grace [facility] Comment on above: Result Comment: pfiz er 03-16-2023 influenza virus vaccine, unspecified formulation Nancy Ruiz [facility] 04-05-2022 influenza virus vaccine, unspecified formulation Nancy Grace [facility] 04-05-2022 SARS-CoV-2 (COVID-19 ) [id number] Nancy Ruiz [facility] 03-01-2021 influenza virus vaccine, unspecified formulation Nancy Grace [facility] 03-01-2021 SARS-CoV-2 (COVID-19 ) mRNA BNT-162b2 vax Nancyhalima Grace [facility] Comment on above: Result Comment: 2022: [id number] 08-08-2020 SARS-CoV-2 (COVID-19 ) mRNA BNT-162b2 kristy Grace [facility] 07-18-2020 SARS-CoV-2 (COVID-19 ) mRNA BNT-162b2 kristy Grace [facility] 03-09-2020 influenza virus vaccine, unspecified formulation Nancy Grace [facility] 03-09-2020 pneumococcal conjuga te vaccine, 13 valent Nancy Grace [facility] NEGATED: Highlighted row has not occurred!02-14-2023 influenza virus vaccine, unspecified formulation Christy Ese [facility] Payers Date Payer Category Payer Unknown [id number] 2023 Self-pay [id number] 2022 Private Health Insurance [id number] .[id number]. [id number] 2018 Medicare [id number]. 1.13.693.2. [id number] 2018 Medicare HMO [place] [place] 1.2.840.215057.1.13.424.2. [id number] 1959 Medicare [id number] 1959 Unknown [id number] 1954 Unknown [id number] 2.16.840.1.357127.3.579.2. 593 1954 Unknown [id number] 2.16.840.1.651603.3.579.2. 727 1954 Unknown [id number] 2.16.840.1.654439.3.579.2. 72 1954 Unknown [id number] 2.16.840.1.496249.3.579.2. 72 1954 Unknown [id number] 2.16.840.1.112839.3.579.2. 1954 Unknown [id number] 2.16.840.1.498543.3.579.2. 72 1954 Unknown [id number] 2.16.840.1.702718.3.579.2. 72 1954 Unknown [id number] 2.16.840.1.342746.3.579.2. 1954 Unknown [id number] 2.16.840.1.703859.3.579.2. 72 1954 Unknown [id number] 2.16.840.1.062410.3.579.2. 72 1954 Unknown [id number] 2.16.840.1.614492.3.579.2. 72 1954 Unknown [id number] 2.16.840.1.031623.3.579.2. 72 1954 Unknown [id number] 2.16.840.1.419482.3.579.2. 1954 Unknown [id number] 2.16.840.1.417042.3.579.2. 72 1954 Unknown [id number] 2.16.840.1.754626.3.579.2. 1954 Unknown [id number] 2.16.840.1.660253.3.579.2. 1954 Unknown [id number] 2.16.840.1.778667.3.579.2. 1954 Unknown [id number] 2.16.840.1.300270.3.579.2. 1954 Unknown [id number] 2.16.840.1.248605.3.579.2. 1954 Unknown [id number] 2.16.840.1.023335.3.579.2 1954 Unknown [id number] 2.16.840.1.420532.3.579.2 1954 Unknown [id number] 2.16.840.1.502313.3.579.2 1954 Unknown [id number] 2.16.840.1.446644.3.579.2 1954 Unknown [id number] 2.16.840.1.086167.3.579.2 1954 Unknown [id number] 2.16.840.1.826892.3.579.2. 1954 Unknown [id number] 2.16.840.1.077084.3.579.2 1954 Unknown [id number] 2.16.840.1.754954.3.579.2. 1954 Unknown [id number] 2.16.840.1.223268.3.579.2 1954 Unknown [id number] 2.16.840.1.276853.3.579.2. 1954 Unknown [id number] 2.16.840.1.128807.3.579.2. 1286 1954 Unknown [id number] 2.16.840.1.040174.3.579.2. 727 1954 Unknown [id number] 2.16.840.1.902644.3.579.2. 727 1954 Unknown [id number] 2.16.840.1.412166.3.579.2. 72 1954 Unknown [id number] 2.16.840.1.015469.3.579.2. 72 1954 Unknown [id number] 2.16.840.1.402540.3.579.2. 1954 Unknown [id number] 2.16.840.1.233403.3.579.2. 72 1954 Unknown [id number] 2.16.840.1.456186.3.579.2. 1954 Unknown [id number] 2.16.840.1.821990.3.579.2. 727 1954 Unknown [id number] 2.16.840.1.274083.3.579.2. 125 1954 Unknown [id number] 2.16.840.1.794743.3.579.2. 1259 1954 Unknown [id number] 2.16.840.1.640661.3.579.2. 125 1954 Unknown [id number] 2.16.840.1.567356.3.579.2. 125 1954 Unknown [id number] 2.16.840.1.687851.3.579.2. 125 1954 Unknown [id number] 2.16.840.1.990824.3.579.2. 727 1954 Unknown [id number] 2.16.840.1.496346.3.579.2. 72 1954 Unknown [id number] 2.16.840.1.112119.3.579.2. 727 1954 Unknown [id number] 2.16.840.1.321916.3.579.2. 72 1954 Unknown [id number] 2.16.840.1.054842.3.579.2. 72 1954 Unknown [id number] 2.16.840.1.569929.3.579.2. 1954 Unknown [id number] 2.16.840.1.243498.3.579.2. 1954 Unknown [id number] 2.16.840.1.274027.3.579.2. 1954 Unknown [id number] 2.16.840.1.530918.3.579.2. 1954 Unknown [id number] 2.16.840.1.451390.3.579.2. 1954 Unknown [id number] 2.16.840.1.274916.3.579.2. 1954 Unknown [id number] 2.16.840.1.068362.3.579.2. 1954 Unknown [id number] 2.16.840.1.092285.3.579.2. 1954 Unknown [id number] 2.16.840.1.620661.3.579.2. 1954 Unknown [id number] 2.16.840.1.323550.3.579.2. 1954 Unknown [id number] 2.16.840.1.831293.3.579.2. 1954 Unknown [id number] 2.16.840.1.533159.3.579.2. 72 1954 Unknown [id number] 2.16.840.1.882527.3.579.2. 727 1954 Unknown [id number] 2.16.840.1.812317.3.579.2. 727 1954 Unknown [id number] 2.16.840.1.640240.3.579.2. 727 1954 Unknown [id number] 2.16.840.1.198836.3.579.2. 727 1954 Unknown [id number] 2.16.840.1.194443.3.579.2. 727 1954 Unknown [id number] 2.16.840.1.592081.3.579.2. 727 Unknown Regular Insurance [id number] Unknown [id number] 2.16.840.1.832282.3.579.2. 531 Unknown [id number] 2.16.840.1.966679.3.579.2. 531 Social History Date Type Detail Facility Start: 01-20-2023 End: 03-18-2025 Tobacco smoking status Ex-smoker (finding) [facility] Comment on above: former smoker, quit 2005 uses chewing tobacco former smoker. stopp ed at age 50. Tobacco smoking status Smokeless tobacco user within last [address] [facility] Comment on above: former smoker, quit 2006 uses chewing tobacco former smoker. stopp ed at age 50. Start: 11-15-2018 End: 09-11-2024 Sex Assigned At Male [facility] Start: 1955 Sex Assigned At Male [facility] Tobacco smoking stat NHIS Tobacco smoking [...] 2 BEERS/WK NOMS He althcare Sexual Orientation [facility] Medical Equipment Procedure Code Equipment Code Equipment Origin al Text Equipment Identifier Dates [facility] Pres[place], See Instructions, 100 strip(s), 3, One touch ultra 2 test strips Use to tests sugars once a day Dx E11.9, [facility], [facility], cm, 05/26/23 9:14:00 EST, Height/Length Dosing, 109.1, kg, 05/26/23 9:14:00 EST, Weight Dosing Start: 05-26-2023 [facility] Prescription, See Instructions, 100 lancet(s), 3, Soft click lancets Use to test blood sugars once a day Dx E11.9, [facility], 174.5, cm, 05/26/23 9:14:00 EST, Height/Length Dosing, 109.1, kg, 05/26/23 9:14:00 EST, Weight Dosing Start: 05-26-2023 [facility] Prescription, See Instructions, 100 strip(s), 3, One touch ultra 2 test strips Use to tests sugars once a day Dx E11.9, [facility], 174.5, cm, 05/26/23 9:14:00 EST, Height/Length Dosing, 109.1, kg, 05/26/23 9:14:00 EST, Weight Dosing Start: 05-26-2023 [facility] Prescription, See Instructions, 100 lancet(s), 3, Soft click lancets Use to test blood sugars once a day Dx E11.9, [facility], 174.5, cm, 05/26/23 9:14:00 EST, Height/Length Dosing, 109.1, kg, 05/26/23 9:14:00 EST, Weight Dosing Start: 05-26-2023 [facility] Prescription, See Instructions, 100 strip(s), 3, One touch ultra 2 test strips Use to tests sugars once a day Dx E11.9, [facility], Supply, 174.5, cm, 05/26/23 9:14:00 EST, Height/Length Dosing, 109.1, kg, 05/26/23 9:14:00 EST, Weight Dosing Start: 05-26-2023 [facility] Prescription, See Instructions, 100 lancet(s), 3, Soft click lancets Use to test blood sugars once a day Dx E11.9, [facility], Supply, 174.5, cm, 05/26/23 9:14:00 EST, Height/Length Dosing, 109.1, kg, 05/26/23 9:14:00 EST, Weight Dosing Start: 05-26-2023 [facility] Prescription, See Instructions, 100 strip(s), 3, One touch ultra 2 test strips Use to tests sugars once a day Dx E11.9, [facility], Supply, 174.5, cm, 05/26/23 9:14:00 EST, Height/Length Dosing, 109.1, kg, 05/26/23 9:14:00 EST, Weight Dosing Start: 05-26-2023 [facility] Prescription, See Instructions, 100 lancet(s), 3, Soft click lancets Use to test blood sugars once a day Dx E11.9, [facility], Supply, 174.5, cm, 05/26/23 9:14:00 EST, Height/Length Dosing, 109.1, kg, 05/26/23 9:14:00 EST, Weight Dosing Start: 05-26-2023 [facility] Prescription, See Instructions, 100 strip(s), 3, One touch ultra 2 test strips Use to tests sugars once a day Dx E11.9, [facility], Supply, 174.5, cm, 05/26/23 9:14:00 EST, Height/Length Dosing, 109.1, kg, 05/26/23 9:14:00 EST, Weight Dosing Start: 05-26-2023 [facility] Prescription, See Instructions, 100 lancet(s), 3, Soft click lancets Use to test blood sugars once a day Dx E11.9, [facility], cm, 05/26/23 9:14:00 EST, Height/Length Dosing, 109.1, kg, 05/26/23 9:14:00 EST, Weight Dosing Start: 05-26-2023 [facility] Prescription, See Instructions, 100 strip(s), 3, One touch ultra 2 test strips Use to tests sugars once a day Dx E11.9, [facility], Supply, 174.5, cm, 05/26/23 9:14:00 EST, Height/Length Dosing, 109.1, kg, 05/26/23 9:14:00 EST, Weight Dosing Start: 05-26-2023 [facility] Prescription, See Instructions, 100 lancet(s), 3, Soft click lancets Use to test blood sugars once a day Dx E11.9, [facility], 174.5, cm, 05/26/23 9:14:00 EST, Height/Length Dosing, 109.1, kg, 05/26/23 9:14:00 EST, Weight Dosing Start: 05-26-2023 [facility] Prescription, See Instructions, 100 strip(s), 3, One touch ultra 2 test strips Use to tests sugars once a day Dx E11.9, [facility], 174.5, cm, 05/26/23 9:14:00 EST, Height/Length Dosing, 109.1, kg, 05/26/23 9:14:00 EST, Weight Dosing Start: 05-26-2023 [facility] Prescription, See Instructions, 100 lancet(s), 3, Soft click lancets Use to test blood sugars once a day Dx E11.9, [facility], 174.5, cm, 05/26/23 9:14:00 EST, Height/Length Dosing, 109.1, kg, 05/26/23 9:14:00 EST, Weight Dosing Start: 05-26-2023 [facility] Prescription, See Instructions, 100 strip(s), 3, One touch ultra 2 test strips Use to tests sugars once a day Dx E11.9, [facility], 174.5, cm, 05/26/23 9:14:00 EST, Height/Length Dosing, 109.1, kg, 05/26/23 9:14:00 EST, Weight Dosing Start: 05-26-2023 [facility] Prescription, See Instructions, 100 lancet(s), 3, Soft click lancets Use to test blood sugars once a day Dx E11.9, [facility], Supply, 174.5, cm, 05/26/23 9:14:00 EST, Height/Length Dosing, 109.1, kg, 05/26/23 9:14:00 EST, Weight Dosing Start: 05-26-2023 [facility] Prescription, See Instructions, 100 strip(s), 3, One touch ultra 2 test strips Use to tests sugars once a day Dx E11.9, [facility], Supply, 174.5, cm, 05/26/23 9:14:00 EST, Height/Length Dosing, 109.1, kg, 05/26/23 9:14:00 EST, Weight Dosing Start: 05-26-2023 [facility] Prescription, See Instructions, 100 lancet(s), 3, Soft click lancets Use to test blood sugars once a day Dx E11.9, [facility], Supply, 174.5, cm, 05/26/23 [...] 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 rt: 05-18-2017 Braggs Three Lev el Deformity FDA Start: 05-18-2017 [...] sugars once a day Dx E11.9, [facility], Supply, 174.5, cm, 05/26/23 9:14:00 EST, Height/Length Dosing, 109.1, kg, 05/26/23 9:14:00 EST, Weight Dosing Start: 05-26-2023 [facility] Prescription, See Instructions, 100 lancet(s), 3, Soft click lancets Use to test blood sugars once a day Dx E11.9, [facility], Supply, 174.5, cm, 05/26/23 9:14:00 EST, Height/Length Dosing, 109.1, kg, 05/26/23 9:14:00 EST, Weight Dosing Start: 05-26-2023 [facility] Prescription, See Instructions, 100 strip(s), 3, One touch ultra 2 test strips Use to tests sugars once a day Dx E11.9, [facility], Supply, 174.5, cm, 05/26/23 9:14:00 EST, Height/Length Dosing, 109.1, kg, 05/26/23 9:14:00 EST, Weight Dosing Start: 05-26-2023 [facility] Prescription, See Instructions, 100 lancet(s), 3, Soft click lancets Use to test blood sugars once a day Dx E11.9, [facility], Supply, 174.5, cm, 05/26/23 9:14:00 EST, Height/Length Dosing, 109.1, kg, 05/26/23 9:14:00 EST, Weight Dosing Start: 05-26-2023 [facility] Prescription, See Instructions, 100 strip(s), 3, One touch ultra 2 test strips Use to tests sugars once a day Dx E11.9, [facility], Supply, 174.5, cm, 05/26/23 9:14:00 EST, Height/Length Dosing, 109.1, kg, 05/26/23 9:14:00 EST, Weight Dosing Start: 05-26-2023 [facility] Prescription, See Instructions, 100 lancet(s), 3, Soft click lancets Use to test blood sugars once a day Dx E11.9, [facility], 174.5, cm, 05/26/23 9:14:00 EST, Height/Length Dosing, 109.1, kg, 05/26/23 9:14:00 EST, Weight Dosing Start: 05-26-2023 [facility] Prescription, See Instructions, 100 strip(s), 3, One touch ultra 2 test strips Use to tests sugars once a day Dx E11.9, [facility], Supply, 174.5, cm, 05/26/23 9:14:00 EST, Height/Length Dosing, 109.1, kg, 05/26/23 9:14:00 EST, Weight Dosing Start: 05-26-2023 [facility] Prescription, See Instructions, 100 lancet(s), 3, Soft click lancets Use to test blood sugars once a day Dx E11.9, [facility], 174.5, cm, 05/26/23 9:14:00 EST, Height/Length Dosing, 109.1, kg, 05/26/23 9:14:00 EST, Weight Dosing Start: 05-26-2023 [facility] Prescription, See Instructions, 100 strip(s), 3, One touch ultra 2 test strips Use to tests sugars once a day Dx E11.9, [facility], 174.5, cm, 05/26/23 9:14:00 EST, Height/Length Dosing, 109.1, kg, 05/26/23 9:14:00 EST, Weight Dosing Start: 05-26-2023 [facility] Prescription, See Instructions, 100 lancet(s), 3, Soft click lancets Use to test blood sugars once a day Dx E11.9, [facility], 174.5, cm, 05/26/23 9:14:00 EST, Height/Length Dosing, 109.1, kg, 05/26/23 9:14:00 EST, Weight Dosing Start: 05-26-2023 [facility] Prescription, See Instructions, 100 strip(s), 3, One touch ultra 2 test strips Use to tests sugars once a day Dx E11.9, [facility], 174.5, cm, 05/26/23 9:14:00 EST, Height/Length Dosing, 109.1, kg, 05/26/23 9:14:00 EST, Weight Dosing Start: 05-26-2023 [facility] Prescription, See Instructions, 100 lancet(s), 3, Soft click lancets Use to test blood sugars once a day Dx E11.9, [facility], Supply, 174.5, cm, 05/26/23 9:14:00 EST, Height/Length Dosing, 109.1, kg, 05/26/23 9:14:00 EST, Weight Dosing Start: 05-26-2023 [facility] Prescription, See Instructions, 100 strip(s), 3, One touch ultra 2 test strips Use to tests sugars once a day Dx E11.9, [facility], Supply, 174.5, cm, 05/26/23 9:14:00 EST, Height/Length Dosing, 109.1, kg, 05/26/23 9:14:00 EST, Weight Dosing Start: 05-26-2023 [facility] Prescription, See Instructions, 100 lancet(s), 3, Soft click lancets Use to test blood sugars once a day Dx E11.9, [facility], Supply, 174.5, cm, 05/26/23 [...] tests sugars once a day Dx E11.9, [facility], Supply, 174.5, cm, 05/26/23 9:14:00 EST, Height/Length Dosing, 109.1, kg, 05/26/23 9:14:00 EST, Weight Dosing Start: 05-26-2023 [facility] Prescription, See Instructions, 100 lancet(s), 3, Soft click lancets Use to test blood sugars once a day Dx E11.9, [facility], Supply, 174.5, cm, 05/26/23 9:14:00 EST, Height/Length Dosing, 109.1, kg, 05/26/23 9:14:00 EST, Weight Dosing Start: 05-26-2023 [facility] Prescription, See Instructions, 100 strip(s), 3, One touch ultra 2 test strips Use to tests sugars once a day Dx E11.9, [facility], Supply, 174.5, cm, 05/26/23 9:14:00 EST, Height/Length Dosing, 109.1, kg, 05/26/23 9:14:00 EST, Weight Dosing Start: 05-26-2023 [facility] Prescription, See Instructions, 100 lancet(s), 3, Soft click lancets Use to test blood sugars once a day Dx E11.9, [facility], Supply, 174.5, cm, 05/26/23 9:14:00 EST, Height/Length Dosing, 109.1, kg, 05/26/23 9:14:00 EST, Weight Dosing Start: 05-26-2023 [facility] Prescription, See Instructions, 100 strip(s), 3, One touch ultra 2 test strips Use to tests sugars once a day Dx E11.9, [facility], Supply, 174.5, cm, 05/26/23 9:14:00 EST, Height/Length Dosing, 109.1, kg, 05/26/23 9:14:00 EST, Weight Dosing Start: 05-26-2023 [facility] Prescription, See Instructions, 100 lancet(s), 3, Soft click lancets Use to test blood sugars once a day Dx E11.9, [facility], Supply, 174.5, cm, 05/26/23 9:14:00 EST, Height/Length Dosing, 109.1, kg, 05/26/23 9:14:00 EST, Weight Dosing Start: 05-26-2023 [facility] Prescription, See Instructions, 100 strip(s), 3, One touch ultra 2 test strips Use to tests sugars once a day Dx E11.9, [facility], Supply, 174.5, cm, 05/26/23 9:14:00 EST, Height/Length Dosing, 109.1, kg, 05/26/23 9:14:00 EST, Weight Dosing Start: 05-26-2023 [facility] Prescription, See Instructions, 100 lancet(s), 3, Soft click lancets Use to test blood sugars once a day Dx E11.9, [facility], Supply, 174.5, cm, 05/26/23 9:14:00 EST, Height/Length Dosing, 109.1, kg, 05/26/23 9:14:00 EST, Weight Dosing Start: 05-26-2023 [facility] Prescription, See Instructions, 100 strip(s), 3, One touch ultra 2 test strips Use to tests sugars once a day Dx E11.9, [facility], Supply, 174.5, cm, 05/26/23 9:14:00 EST, Height/Length Dosing, 109.1, kg, 05/26/23 9:14:00 EST, Weight Dosing Start: 05-26-2023 [facility] Prescription, See Instructions, 100 lancet(s), 3, Soft click lancets Use to test blood sugars once a day Dx E11.9, [facility], Supply, 174.5, cm, 05/26/23 9:14:00 EST, Height/Length Dosing, 109.1, kg, 05/26/23 9:14:00 EST, Weight Dosing Start: 05-26-2023 [facility] Prescription, See Instructions, 100 strip(s), 3, One touch ultra 2 test strips Use to tests sugars once a day Dx E11.9, [facility], Supply, 174.5, cm, 05/26/23 9:14:00 EST, Height/Length Dosing, 109.1, kg, 05/26/23 9:14:00 EST, Weight Dosing Start: 05-26-2023 [facility] Prescription, See Instructions, 100 lancet(s), 3, Soft click lancets Use to test blood sugars once a day Dx E11.9, [facility], Supply, 174.5, cm, 05/26/23 9:14:00 EST, Height/Length Dosing, 109.1, kg, 05/26/23 9:14:00 EST, Weight Dosing Start: 05-26-2023 'Number 1' Gluco meter and test strips testing BS twice daily- will bring equipment to [facility]/ to update brand Start: 01-03-2024 'Number 1' Gluco meter and test strips testing BS twice daily- will bring equipment to [facility]/ to update brand Start: 01-03-2024 'Number 1' Gluco meter and test strips testing BS twice daily- will bring equipment to [facility] f/ to update brand Start: 01-03-2024 'Number 1' Gluco meter and test strips testing BS twice daily- will bring equipment to [facility] f/ to update brand Start: 01-03-2024 'Number 1' Gluco meter and test strips testing BS twice daily- will bring equipment to [facility]/ to update brand Start: 01-03-2024 'Number [...] Assessment Result Facility 01-13-2024 Functional Status N/A [facility] 01-10-2024 Functional Status N/A [facility] 12-29-2023 Functional Status N/A [facility] 12-29-2023 Functional Status [facility] 11-28-2023 Functional Status N/A [facility] 10-19-2023 Functional Status No [facility] 09-22-2023 Functional Status N/A [facility] 08-19-2023 Functional Status N/A [facility] 08-11-2023 Functional Status No [facility] 07-27-2023 Functional Status N/A [facility] 07-15-2023 Functional Status N/A [facility] 06-21-2023 Functional Status N/A [facility] Clinical Notes 06-13-2019 to 01-08-2025 [...] be managed by a specialist called an mental hygienist. Type 2 diabetes may be treated by [...] meet with a certified diabetes care and ed special education teacher? What diabetes medicines do I need, and when should I take them? What equipment will I need to manage my diabetes at home? How often do I need to check my blood glucose? Where can I find a support group for people with diabetes? What number can I call if I have questions? When is my next appointment? General instructions ??? Take mndg-cyl-vsjozvi and prescription medicines only as told by your health care provider. ??? Keep all follow-up visits. This is important. Where to find more information For help and guidance and for more information about diabetes, please visit: ??? [place] [employer] (ADA): www.diabetes.org ??? [place] [employer] Diabetes Care and Education Specialists (ADCES): www.diabeteseducator.org ??? International Diabetes Federation (IDF): www.idf (more content not included)... [facility] 11-14-2024 Note Patient Education Urology Hematuria, [...] these instructions at home: Medicines ??? Take ndqp-wbi-fbhgeew and prescription medicines only as told by [...] the blood stops without treatment. ??? Take kwcp-hmk-vixwqek and prescription medicines only as told by your health care provider. ??? Drink enough fluid to keep your urine pale yellow. This information is not intended to replace advice given to you by your health care provider. Make sure you discuss any questions you have with your health care provider. Document Revised: 01/21/2021 Document Reviewed: 01/21/2021 If You Can Patient Education ? 2023 [employer]. [facility] 10-08-2024 Note Patient Education Nutrition BMI [...] for Disease Control and Prevention: cdc.gov ??? [place] [employer]: heart.org ??? National Heart, Lung, and Blood [place]: nhlbi.nih.gov This information is not intended to replace advice given to you by your health care provider. Make sure you discuss any questions you have with your health care provider. Document Revised: 02/10/2023 Document Reviewed: 02/03/2023 If You Can Patient Education ? 2023 [facility]. [facility] 09-25-2024 History of Present illness Narrative [...] requiring urgent evaluation. Visit was preformed using [employer] pilot speech recognition. documented in this encounter [facility] 09-11-2024 History of Present illness Narrative [...] requiring urgent evaluation. documented in this encounter [facility] 09-11-2024 Instructions MEIR Bob - 09/11/2024 [...] more urgent evaluation. documented in this encounter [facility] 08-28-2024 Telephone encounter Note 's office left vm. Magnesium improved they stated. They stated that the final clearance is up to . The office phone number is [phone] ext [phone] [facility] 08-28-2024 Miscellaneous Notes 's office left vm. Magnesium improved they stated. They stated that the final clearance is up to . The office phone number is [phone] ext [phone] documented in this encounter [facility] 08-21-2024 Note Patient Education Urology Acute [...] these instructions at home: Medicines ??? Take bqot-ttf-eynlnji and prescription medicines only as told by [...] provider. Document Revised: 02/11/2021 Document Reviewed: 02/11/2021 If You Can Patient Education ? 2023 [facility]. [facility] 08-14-2024 History of Present illness Narrative [...] 9:15 [place]- RAUL. documented in this encounter [facility] 07-18-2024 History of Present illness Narrative NAME: Alicja Reyes : 1955 HISTORY OF PRESENT ILLNESS: NEW PT Alicja Reyes is an 69 y.o. @ male. (NEW PT) - (R) HAND DISCOMFORT ~5 MONTHS ; S/P B/L UE EMG 05/22/24 @[facility] NO XRAY B/L UE EMG 05/22/24 @[facility] NOTES NUMBNESS IN FINGERS. INTERMITTENT SHARP STABBING PAIN IN ALL FINGERS BUT THUMB. DISCOMFORT ~5 MONTHS (02/2024). DIFFICULTY TAKING PILLS. LIMITED DIRECTOR OF SUSTAINABILITY PROGRAMS WITH TIGHT FIST. ADMITS N/T. GOOD ROM [...] is normal. Strength additional comments: 5/5 EQUAL DIRECTOR OF SUSTAINABILITY PROGRAMS STRENGTH Neurovascular Right Right neurovascular exam is [...] requiring urgent evaluation. documented in this encounter [facility] 07-16-2024 Note Patient Education Nutrition BMI [...] for Disease Control and Prevention: cdc.gov ??? [place] Heart Association: heart.org ??? National Heart, Lung, and Blood [place]: nhlbi.nih.gov This information is not intended to replace advice given to you by your health care provider. Make sure you discuss any questions you have with your health care provider. Document Revised: 02/10/2023 Document Reviewed: 02/03/2023 If You Can Patient Education ? 2023 [facility]. [facility] 07-09-2024 Note Patient Education Cardiovascular Hypertension, [...] 12 oz bottle (more content not included)... [facility] 05-22-2024 History of Present illness Narrative Images from the original note were not included. Reason for Appointment: EMG Patient: Alicja Reyes : 1955 EMG Computer: [employer] Referring Physician: Marino Kearns CNP EMG: ADELAIDA on site soil evaluator: Gee Wang RT(R) Office Location: [place] Reason for EMG: c/o numbness/tingling in fingers on left hand. Hx of left CTR & surgery to left elbow. Hx of DM. Not on blood thinners. Comments: Procedure was explained to the patient who expressed understanding. Patient appeared to have tolerated the test well despite some discomfort due to the nature of the test. documented in this encounter [facility] 05-18-2024 Note Patient Education Neurology Paresthesia [...] liquor (44 mL). General instructions ??? Take iawl-umv-kbfhhog and prescription medicines only as told by [...] provider. Document Revised: 02/01/2022 Document Reviewed: 02/01/2022 If You Can Patient Education ? 2023 [facility]. [facility] 01-30-2024 Note Nurse Consultation N ote [...] virus vaccine, inactivated 04/05/2022 Recorded SARS-CoV-2 (COVID-19) mRNAMUL.ORD![id number] 04/05/2022 Recorded influenza virus vaccine, inactivated 03/01/2021 Recorded SARS-CoV-2 (COVID-19) mRNA BNT-162b2 vax 03/01/2021 Recorded 2023-01-13: [id number] SARS-CoV-2 (COVID-19) mRNA BNT-162b2 vax 08/08/2020 Recorded SARS-CoV-2 (COVID-19) mRNA BNT-162b2 vax 07/18/2020 Recorded pneumococcal 13-valent vaccine 03/09/2020 Recorded influenza virus vaccine, inactivated 03/09/2020 Recorded [facility] 01-11-2024 Note Nurse Consultation N ote Reason for Visit Here for lab draw and Dr Tao ordered PSA free and total also joni that for him. canceled the urine culture as patient had urine done at [facility] yesterday and was told it's fine [...] virus vaccine, inactivated 04/05/2022 Recorded SARS-CoV-2 (COVID-19) mRNAMUL.ORD![id number] 04/05/2022 Recorded influenza virus vaccine, inactivated 03/01/2021 Recorded SARS-CoV-2 (COVID-19) mRNA BNT-162b2 vax 03/01/2021 Recorded 2023-01-13: [id number] SARS-CoV-2 (COVID-19) mRNA BNT-162b2 vax 08/08/2020 Recorded SARS-CoV-2 (COVID-19) mRNA BNT-162b2 vax 07/18/2020 Recorded pneumococcal 13-valent vaccine 03/09/2020 Recorded influenza virus vaccine, inactivated 03/09/2020 Recorded [facility] 01-10-2024 Hospital Discharge instructions Patient Education [...] and water are not available, use hand chicken hanger. 2.Clean your penis with soap and water. [...] reusable catheter in a small bathroom. Take sygz-bsz-mvhfphc and prescription medicines only as told by [...] provider. Document Revised: 03/29/2022 Document Reviewed: 03/29/2022 If You Can Patient Education 2022 [facility]. Follow Up Care 09/22/2023 13:04:49 With:EMMY REYNOLDS, Bryant Vogel, URL Address: [address] [place] [address]- When: Unknown Comments:6 mos [facility] 01-10-2024 Note Patient Education Urology Clean [...] and water are not available, use hand chicken hanger. 2. Clean your penis with soap and [...] catheter in a small bathroom. ? Take vpsb-geq-xylfskz and prescription medicines onl (more content not included)... [facility] 12-31-2023 Note Discharge Summary Admission and [...] spending 1 more fucking night in this [facility] with the terrible food and lack [...] made to ensure accuracy, however, inadvertently computerized sql programmer mistakes may be present. Significant Findings No qualifying data available. Services Consulted Consult to Nephrology - Ordered -- 12/29/23 15:09:00 EDT, Refractory hypomagnesemia, REQUESTED BY DR. GRACE, Consult and Co-manage Consult to Nephrology - Ordered -- 12/29/23 15:22:00 EDT, recurrent hypomag., renal wasting, Consult and Co-manage Consult to Social Servi (more content not included)... [facility] Comment on above: Result Comment: Elec [...] BID, # 360 tab(s), Refills(s) 1, Pharmacy: [email or web address], 174, cm, 07/26/23 10:21:00 EST, Height/Length Dosing, 104.8, kg, 07/26/23 10:21:00 EST, Weight Dosing Misc [facility], See Instructions, 1 kit(s), 0, One Touch Ultra 2 glucose meter kit Use to tests sugars daily E11.9, [facility], Supply, 174.5, cm, 05/26/23 9:14:00 EST, Height/Length Dosing, 109.1, kg, 05/26/23 9:14:00... Misc DME Prescription: Misc DME Prescription, See Instructions, 100 Unspecified/Unknown, 3, Alcohol prep pads Use to test blood sugars daily Dx E11.9, [facility], Supply, 174.5, cm, 05/26/23 9:14:00 EST, Height/Length Dosing, 109.1, kg, 05/26/23 9:1... Misc DME [facility], See Instructions, 100 lancet(s), 3, Soft click lancets Use to test blood sugars once a day Dx E11.9, [facility], Supply, 174.5, cm, 05/26/23 9:14:00 EST, Height/Length Dosing, 109.1, kg, 05/26/23 9:14:00... Misc DME Prescription: Misc DME Prescription, See Instructions, 100 strip(s), 3, One touch ultra 2 test strips Use to tests sugars once a day Dx E (more content not included)... [facility] Comment on above: Result Comment: Elec [...] Do not drink alcohol. General instructions Take oppg-iqs-zaxwxkl and prescription medicines only as told by [...] provider. Document Revised: 10/20/2021 Document Reviewed: 10/20/2021 If You Can Patient Education 2022 [facility]. 12/30/2023 12:37:57 Hypomagnesemia Hypomagnesemia Hypomagnesemia is a [...] Do not drink alcohol. General instructions Take ijqh-wng-nquyllv and prescription medicines only as told by [...] provider. Document Revised: 10/20/2021 Document Reviewed: 10/20/2021 If You Can Patient Education 2022 [employer] 12/30/2023 12:30:15 How to Take Your Blood Pressure, Rkrb-bg-Otlh How to Take Your Blood Pressure Blood [...] Follow these instructions at home: Medicines Take jmwv-bxg-xehjboq and prescription medicines only as told by [...] monitor. You can buy one at a [employer] or online. When choosing one: Choose one with an arm cuff. Choose one that wraps around your upper arm. Only one finger should fit between your arm and the cuff. Do not choose one that measures your blood pressure from your wrist or finger. Where to find more information [place] Heart Association: www.heart.org Contact a doctor if: [...] provider. Document Revised: 02/04/2022 Document Reviewed: 02/04/2022 If You Can Patient Education 2022 [facility]. 12/30/2023 12:30:15 Form - Blood Pressure Record [...] provider. Document Revised: 02/04/2022 Document Reviewed: 02/04/2022 If You Can Patient Education 2022 [employer] 12/30/2023 11:53:55 Urinary Tract Infection, Adult, Alyh-hs-Mxob Urinary Tract Infection, Adult A urinary tract [...] Follow these instructions at home: Medicines Take xkkd-tvr-zrixwsc and prescription medicines only as told by [...] provider. Document Revised: 01/02/2021 Document Reviewed: 01/02/2021 If You Can Patient Education 2022 [facility]. 12/30/2023 11:53:55 Hypomagnesemia Hypomagnesemia Hypomagnesemia is a [...] Do not drink alcohol. General instructions Take vtxx-rwr-jzxetqw and prescription medicines only as told by [...] provider. Document Revised: 10/20/2021 Document Reviewed: 10/20/2021 If You Can Patient Education 2022 [facility]. Follow Up Care 12/29/2023 13:34:47 With:Ramos Euceda Address: [address] [place] [address]- Business (1) When: Unknown Comments:Call for followup appointment in [place] office With:Nancy Grace Address: [address] [place] [address]- Business (2) When:01/05/2024 07:45:00 [facility] 12-30-2023 Note Interdisciplinary No te - PT Order received, chart reviewed. Attempted PT evaluation at 1141 on 12/30/23. Upon attempt, pt. is speaking with Dacia Bañuelos AGACNP-BP and threatening to leave AMA. Dacia instructs PT to hold evaluation at this time. Please re-order PT evaluation if deemed necessary in the future. No PT charges. [facility] 12-29-2023 Evaluation + Plan note Extrac [...] deep vein thrombosis (DVT) prophylaxis (Z79.899: Other custodial (current) drug therapy) Orders: magnesium sulfate + [...] use - 2 beers prior to arrival -[facility] protocol/supplements 4. 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 Future Appointments Appointment Date:01/05/2024 07:45:00 AM Scheduled Provider:Nancy Grace MD Location:[facility] Appointment Type: Hospital Follow Up w/TCM Appointment Date:01/10/2024 08:15:00 AM Scheduled Provider:Bryant TAO MD Location:[facility] [place] Appointment Type:URO Office Visit Appointment Date:01/13/2024 09:00:00 AM Scheduled Provider:[facility] Type:Cardiology Follow Up (FT) Appointment Date:07/09/2024 08:00:00 AM Scheduled Provider: Location:[facility] Appointment Type: Medicare Wellness Subsequent Diagnostic Tests Pending * PTH Intact 12/30/23 Future Scheduled Tests Laboratory* U Protein/Creat Ratio 07/14/23 * HgbA1c 07/14/23 * HgbA1c 07/26/23 * Microalbumin Level Urine 07/14/23 * CBC w/ Auto Diff 07/14/23 * Comprehensive Metabolic Panel 07/14/23 * Lipid Panel 07/14/23 [facility] 06-24-2024 Hospital Discharge instructions Patient Education 11/28/2023 [...] Care 09/27/2023 14:45:03 With:Bryant TAO Address: [address] [id number]- Business (1) When: Unknown Comments:As we discussed, [...] are at least emptying the bladder intermittently. [facility]06-24-2024 Note [id number]#1.00[facility] NoteCystoscopy ? Voiding after the procedure: [...] if you have a fever over 100 degrees.[facility] 09-22-2023 Hospital Discharge instructions Patient Education [...] including vitamins, herbs, eye drops, creams, and tjzn-qyw-lnhhaix medicines. Any problems you or family members [...] provider tells you to take them. Taking vdyb-oes-dqbhazg medicines, vitamins, herbs, and supplements. Tests You [...] Follow these instructions at home: Medicines Take lesi-mfb-wpglkrz and prescription medicines only as told by [...] provider. Document Revised: 02/03/2022 Document Reviewed: 01/02/2021 If You Can Patient Education 2022 [facility]. Follow Up Care 09/06/2023 09:35:10 With:EMMY REYNOLDS, Bryant Vogel, URL Address: [address] [place], [place] [id number]- When: Unknown [facility] 04-18-2024 NoteUrology Cystoscopy Cystoscopy is a [...] including vitamins, herbs, eye drops, creams, and kvjz-rma-iorpxyw medicines. ? Any problems you or family [...] tells you to take them. ? Taking jmoc-thq-dsxaevz medicines, vitamins, herbs, and supplements. Tests You [...] these instructions at home: Medicines ? Take rlhm-jvi-nfveujx and prescription medicines only as told by [...] the department th (more content not included)...Anjel [facility] 08-17-2023 [id number] [facility]02-21-2024 Hospital Discharge instructions Patient Education [...] discomfort near your rectum, especially while sitting. [place]-colored urine due to small amounts of blood in your urine. A burning feeling while urinating. Blood in your stool (feces) or bleeding from your rectum. Blood in your semen. Follow these instructions at home: Medicines Take kenf-gsm-bqdcvpw and prescription medicines only as told by [...] provider. Document Revised: 11/16/2021 Document Reviewed: 11/16/2021 If You Can Patient Education 2022 [facility]. 07/27/2023 11:28:00 Transrectal Ultrasound-Guided Prostate Biopsy Transrectal [...] including vitamins, herbs, eye drops, creams, and bbnn-gmb-grundwm medicines. Any problems you or family members [...] provider tells you to take them. Taking robs-ses-vjxrlag medicines, vitamins, herbs, and supplements. General instructions [...] provider. Document Revised: 11/16/2021 Document Reviewed: 11/16/2021 If You Can Patient Education 2022 [facility]. Follow Up Care 07/26/2023 12:46:05 With:RAMANDEEP PORTER PA-C, URL Address: [address] [address] When: Unknown [facility] 01-16-2024 Hospital Discharge instructions Patient Education [...] including vitamins, herbs, eye drops, creams, and psug-gao-ldpeeho medicines. Any problems you or family members [...] provider tells you to take them. Taking zeum-rny-jjqtidk medicines, vitamins, herbs, and supplements. Tests You [...] Follow these instructions at home: Medicines Take mhcj-gau-wbxfocg and prescription medicines only as told by [...] provider. Document Revised: 02/03/2022 Document Reviewed: 01/02/2021 If You Can Patient Education 2022 [facility]. 06/21/2023 14:21:23 Acute Urinary Retention, Male Acute [...] Follow these instructions at home: Medicines Take fbfa-ksp-gubkaiu and prescription medicines only as told by [...] provider. Document Revised: 02/11/2021 Document Reviewed: 02/11/2021 If You Can Patient Education 2022 [facility]. Follow Up Care 06/21/2023 10:00:59 With:MINDI CHRISTIAN, RAMANDEEP Green, URL Address: [address] [place] [address] [phone] When: Unknown Comments:sched cysto and prostate MRI [facility] 03-01-2020 Evaluation + Plan note Future Appointments Appointment Date:08/02/2023 08:00:00 AM Scheduled Provider: [facility] Type:CV Echo (FT) Appointment Date:08/05/2023 08:45:00 AM Scheduled Provider: [facility] Type:NM Myocard Spect Multi Rest/Stress-Res Appointment Date:08/05/2023 09:45:00 AM Scheduled Provider: [facility] App[facility] Type:NM Myocard Spect Multi Rest/Stress - R Appointment Date:08/05/2023 10:15:00 AM Scheduled Provider: [facility] Appointment Type:NM Myocard Spect Multi Rest/Stress-Str Appointment Date:08/05/2023 11:15:00 AM Scheduled Provider: [facility] App[facility] Type:NM Myocar Spect Multi Rest/Stress - St Appointment Date:08/08/2023 02:00:00 PM Scheduled Provider: Location:[facility] Appointment Type:Urology FT Appointment Date:08/08/2023 03:00:00 PM Scheduled Provider: Location:[facility] Appointment Type:Urology FT Appointment Date:08/15/2023 07:00:00 AM Scheduled Provider:Nancy Grace MD Location:[facility] Appointment Type:FM Open Appointment Date:08/19/2023 11:45:00 AM Scheduled Provider:Troy Coulter MD [facility] Type:Cardiology Follow Up (FT) Appointment Date:07/09/2024 08:00:00 AM Scheduled Provider: Location:[facility] Appointment Type:FM Medicare Wellness Subsequent Future Scheduled Tests Laboratory* U Protein/Creat Ratio 07/14/23 * HgbA1c 07/14/23 * HgbA1c 07/26/23 * Microalbumin Level Urine 07/14/23 * CBC w/ Auto Diff 07/14/23 * Comprehensive Metabolic Panel 07/14/23 * Lipid Panel 07/14/23 Radiology* NM Myocardial Spect Rest/Stress 1 Day 08/05/23 * Echo Transthoracic Complete 08/02/23 [facility] [place] 01-08-2020 Evaluation + Plan note Future Appointments Appointment Date:06/09/2023 08:00:00 AM Scheduled Provider: [facility] Type:CV Echo (FT) Appointment Date:06/13/2023 08:00:00 AM Scheduled Provider:Nancy Grace MD Location:[facility] Appointment Type: Open Appointment Date:07/11/2023 09:00:00 AM Scheduled Provider:Manolo ALLEN MD Location[facility] Appointment Type:URO New Patient Appointment Date:07/27/2023 02:00:00 PM Scheduled Provider: Location:[facility] Appointment Type: Medicare Wellness Subsequent Appointment Date:07/27/2023 02:40:00 PM Scheduled Provider:Nancy Grace MD Location:[facility] Appointment Type: Open Future Scheduled Tests Radiology* Echo Transthoracic [facility]09[facility] App[facility]ments Appointment Date:07/27/2023 02:00:00 PM Scheduled Provider: Location:[facility] Appointment Type: Medicare Wellness Subsequent Appointment Date:07/27/2023 02:40:00 PM Scheduled Provider:Nancy Grace MD Location:[facility]ment Type: [facility] Future Appointments Appointment Date:05/16/2023 07:20:00 AM Scheduled Provider:[facility]: Open Appointment Date:07/27/2023 02:00:00 PM Scheduled Provider: Location:[facility] Appointment Type: Medicare Wellness Subsequent Appointment Date:07/27/2023 02:40:00 PM Scheduled Provider:Nancy Grace MD Location:[facility]ment Type: Open [facility] Future Appointments Appointment Date:05/16/2023 07:20:00 AM Scheduled Provider:Nancy Grace MD [facility] App[facility] Type: Open Appointment Date:07/27/2023 02:00:00 PM Scheduled Provider: Location:[facility] Appointment Type: Medicare Wellness Subsequent Appointment Date:07/27/2023 02:40:00 PM Scheduled Provider:Nancy Grace MD Location:[facility] Appointment Type: Open Diagnostic Tests Pending * Urine Culture [facility]04[facility]23 [facility] Future App[facility]ments Appointment Date:07/11/2023 09:00:00 AM Scheduled Provider:Manolo ALLEN MD [facility] Appointment Type:URO New Patient Appointment Date:07/27/2023 02:00:00 PM Scheduled Provider: Location:[facility] Appointment Type: Medicare Wellness Subsequent Appointment Date:07/27/2023 02:40:00 PM Scheduled Provider:Nancy Grace MD Location:[facility] Appointment Type: Open Diagnostic Tests Pending * Urine Culture 05/16/23 Future Scheduled Tests Radiology* Echo Transthoracic Complete [facility]16[facility] Future App[facility]ments Appointment Date:05/27/2023 08:20:00 AM Scheduled [facility] Nurse Visit Appointment Date:06/09/2023 08:00:00 AM Scheduled Provider: Location[facility] Appointment Type:CV Echo () Appointment Date:06/13/2023 08:00:00 AM Scheduled Provider:Nancy Grace MD Location:[facility] Appointment Type:FM Open Appointment Date:07/11/2023 09:00:00 AM Scheduled Provider:Manolo ALLEN MD Location[facility] Appointment Type:URO New Patient Appointment Date:07/27/2023 02:00:00 PM Scheduled Provider: Location:[facility] Appointment Type:FM Medicare Wellness Subsequent Appointment Date:07/27/2023 02:40:00 PM Scheduled Provider:Nancy Grace MD Location:[facility] Appointment Type: Open Diagnostic Tests Pending * Urine Culture 05/26/23 Future Scheduled Tests Laboratory* Basic Metabolic Panel 05/26/23 Radiology* Echo Transthoracic [facility]09[facility] Future App[facility]ments Appointment Date:06/13/2023 08:00:00 AM Scheduled Provider:Nancy Grace MD Location:[facility] Appointment Type: Open Appointment Date:06/29/2023 10:15:00 AM Scheduled Provider:Kristel Tolentino MD Location[facility] Appointment Type:URO New Patient Appointment Date:07/25/2023 02:00:00 PM Scheduled Provider: Location:[facility] Appointment Type: Medicare Wellness Subsequent Appointment Date:07/25/2023 03:00:00 PM Scheduled Provider:Nancy Grace MD Location[facility] App[facility]ments Appointment Date:06/29/2023 10:15:00 AM Scheduled Provider:Kristel Tolentino MD Location:[facility] Appointment Type:URO New Patient Appointment Date:07/14/2023 10:00:00 AM Scheduled Provider:Nancy Grace MD Location:[facility] Appointment Type: Open Appointment Date:07/15/2023 02:00:00 PM Scheduled Provider:Troy Coul[facility] Type:Cardiology New Patient (FT) Appointment Date:07/25/2023 02:00:00 PM Scheduled Provider: Location:[facility] Appointment Type: Medicare Wellness Subsequent Appointment Date:07/25/2023 03:00:00 PM Scheduled Provider:Nancy Grace MD Location:[facility] App[facility]ments Appointment Date:06/22/2023 10:30:00 AM Scheduled Provider: [facility]O Nurse Visit Appointment Date:06/28/2023 07:45:00 AM Scheduled Provider:Nancy [facility] Follow Up w/TCM Appointment Date:07/14/2023 10:00:00 AM Scheduled Provider:Nancy Grace MD Location:[facility] Appointment Type: Open Appointment Date:07/15/2023 02:00:00 PM Scheduled Provider:Troy Coulter MD [facility] Type:Cardiology New Patient (FT) Appointment Date:07/25/2023 02:00:00 PM Scheduled Provider: Location:[facility] Appointment Type: Medicare Wellness Subsequent Appointment Date:07/25/2023 03:00:00 PM Scheduled Provider:Nancy Grace MD Location:[facility] Appointment Type:[facility] evaluation + Plan note Future Appointments Appointment Date:06/23/2023 08:00:00 AM Scheduled Provider: Location[facility] Appointment Type:URO Nurse Visit Appointment Date:06/28/2023 07:45:00 AM Scheduled Provider:Nancy Grace MD [facility]: Hospital Follow Up w/TCM Appointment Date:07/14/2023 10:00:00 AM Scheduled Provider:Nancy Grace MD Location:[facility] Appointment Type: Open Appointment Date:07/15/2023 02:00:00 PM Scheduled Provider:Troy Coulter MD [facility] Type:Cardiology New Patient (FT) Appointment Date:07/25/2023 02:00:00 PM Scheduled Provider: [facility] Type: Medicare Wellness Subsequent Appointment Date:07/25/2023 03:00:00 PM Scheduled Provider:Nancy Grace MD Location:[facility] Appointment Type: Open [facility] evaluation + Plan note Future Appointments Appointment Date:06/28/2023 07:45:00 AM Scheduled Provider:Nancy Grace MD Location:[facility] Appointment Type: Hospital Follow Up w/TCM Appointment Date:07/14/2023 10:00:00 AM Scheduled Provider:Nancy Grace MD Location:[facility] Appointment Type: Open Appointment Date:07/15/2023 02:00:00 PM Scheduled Provider:Troy Coulter MD [facility] Appointment Type:Cardiology New Patient (FT) Appointment Date:07/25/2023 02:00:00 PM Scheduled Provider: Location:[facility] Appointment Type: Medicare Wellness Subsequent Appointment Date:07/25/2023 03:00:00 PM Scheduled Provider:Nancy Grace MD Location:[facility] Appointment Type:[facility] evaluation + Plan note Future Appointments Appointment Date:07/14/2023 10:00:00 AM Scheduled Provider:Nancy Grace MD Location:[facility] Appointment Type: Open Appointment Date:07/15/2023 02:00:00 PM Scheduled Provider:Troy Coulter MD [facility] Type:Cardiology New Patient (FT) Appointment Date:07/25/2023 02:00:00 PM Scheduled Provider: Location:[facility] Appointment Type: Medicare Wellness Subsequent Appointment Date:07/25/2023 03:00:00 PM Scheduled Provider:Nancy Grace MD Location:[facility] Appointment Type: Open Appointment Date:08/08/2023 02:00:00 PM Scheduled Provider: Location:[facility] Appointment Type:Urology FT Appointment Date:08/08/2023 03:00:00 PM Scheduled Provider: Location:[facility] App[facility] Appointment Date:07/25/2023 02:00:00 PM Scheduled Provider: Location:[facility] Appointment Type: Medicare Wellness Subsequent Appointment Date:07/25/2023 03:00:00 PM Scheduled Provider:Nancy Grace MD [facility]: Open Appointment Date:08/02/2023 08:00:00 AM Scheduled Provider: [facility] Type:CV Echo (FT) Appointment Date:08/08/2023 02:00:00 PM Scheduled Provider: Location:[facility] Appointment Type:Urology FT Appointment Date:08/08/2023 03:00:00 PM Scheduled Provider: Location:[facility] Appointment Type:Urology FT Appointment Date:08/19/2023 11:45:00 AM Scheduled Provider:Troy Coulter MD [facility] Type:Cardiology Follow Up (FT) Future Scheduled Tests Laboratory* U Protein/Creat Ratio 07/14/23 * HgbA1c 07/14/23 * Microalbumin Level Urine 07/14/23 * CBC w/ Auto Diff 07/14/23 * Comprehensive Metabolic Panel 07/14/23 * Lipid Panel 07/14/23 Radiology* Echo Transthoracic Complete 08/02/23 [facility] Future App[facility]ments Appointment Date:08/05/2023 08:45:00 AM Scheduled Provider: [facility] Appointment Type:NM Myocard Spect Multi Rest/Stress-Res Appointment Date:08/05/2023 09:45:00 AM Scheduled Provider: [facility] Appointment Type:NM Myocard Spect Multi Rest/Stress - R Appointment Date:08/05/2023 10:15:00 AM Scheduled Provider: [facility] App[facility] Type:NM Myocard Spect Multi Rest/Stress-Str Appointment Date:08/05/2023 11:15:00 AM Scheduled Provider: [facility] Appointment Type:NM Myocar Spect Multi Rest/Stress - St Appointment Date:08/15/2023 07:00:00 AM Scheduled Provider:Nancy Grace MD [facility]: Open Appointment Date:08/19/2023 11:45:00 AM Scheduled Provider:Troy Coulter MD [facility] Type:Cardiology Follow Up (FT) Appointment Date:07/09/2024 08:00:00 AM Scheduled Provider: Location:[facility] Appointment Type: Medicare Wellness Subsequent Future Scheduled Tests Laboratory* U Protein/Creat Ratio 07/14/23 * HgbA1c 07/14/23 * HgbA1c 07/26/23 * Microalbumin Level Urine 07/14/23 * CBC w/ Auto Diff 07/14/23 * Comprehensive Metabolic Panel 07/14/23 * Lipid Panel 07/14/23 Radiology* NM Myocardial Spect Rest/Stress 1 Day 08/05/23 [facility] Future App[facility]ments Appointment Date:08/08/2023 12:30:00 PM Scheduled Provider: [facility] App[facility] Type:NM Myocard Spect Multi Rest/Stress-Res Appointment Date:08/08/2023 01:30:00 PM Scheduled Provider: [facility] Appointment Type:NM Myocard Spect Multi Rest/Stress - R Appointment Date:08/08/2023 02:00:00 PM Scheduled Provider: [facility] Appointment Type:NM Myocard Spect Multi Rest/Stress-Str Appointment Date:08/08/2023 03:00:00 PM Scheduled Provider: [facility] Appointment Type:NM Myocar Spect Multi Rest/Stress - St Appointment Date:08/11/2023 09:30:00 AM Scheduled Provider: Location:[facility] Appointment Type:Surgical PAT FT Appointment Date:08/15/2023 07:00:00 AM Scheduled Provider:Nancy Grace MD Location:[facility] Appointment Type: Open Appointment Date:08/19/2023 11:45:00 AM Scheduled Provider:Troy Coulter MD [facility] App[facility] Type:Cardiology Follow Up (FT) Appointment Date:09/01/2023 01:30:00 PM Scheduled Provider: Location:[facility] Appointment Type:Surgery FT Appointment Date:07/09/2024 08:00:00 AM Scheduled Provider: Location:[facility] Appointment Type: Medicare Wellness Subsequent Future Scheduled Tests Laboratory* U Protein/Creat Ratio 07/14/23 * HgbA1c 07/14/23 * HgbA1c 07/26/23 * Microalbumin Level Urine 07/14/23 * CBC w/ Auto Diff 07/14/23 * Comprehensive Metabolic Panel 07/14/23 * Lipid Panel 07/14/23 [facility] Future App[facility]ments Appointment Date:08/15/2023 07:00:00 AM Scheduled Provider:Nancy Grace MD Location:[facility] Appointment Type: Open Appointment Date:08/19/2023 11:45:00 AM Scheduled Provider:Troy Coulter MD Location:[facility] Appointment Type:Cardiology Follow Up (FT) Appointment Date:09/01/2023 01:30:00 PM Scheduled Provider: Location:[facility] Appointment Type:Surgery FT Appointment Date:07/09/2024 08:00:00 AM Scheduled Provider: Location:[facility] Appointment Type:FM Medicare Wellness Subsequent Future Scheduled Tests Laboratory* U Protein/Creat Ratio 07/14/23 * HgbA1c 07/14/23 * HgbA1c 07/26/23 * Microalbumin Level Urine 07/14/23 * CBC w/ Auto Diff 07/14/23 * Comprehensive Metabolic Panel 07/14/23 * Lipid Panel 07/14/23 [facility] Future App[facility]ments Appointment Date:08/19/2023 11:45:00 AM Scheduled Provider:Troy Coulter MD [facility] Appointment Type:Cardiology Follow Up (FT) Appointment Date:09/01/2023 01:30:00 PM Scheduled Provider: Location:[facility] Surgical Services Appointment Type:Surgery FT Appointment Date:07/09/2024 08:00:00 AM Scheduled Provider: Location:[facility] Appointment Type:FM Medicare Wellness Subsequent Diagnostic Tests Pending * Microalbumin Level Urine 08/15/23 * U Protein/Creat Ratio 08/15/23 Future Scheduled Tests Laboratory* U Protein/Creat Ratio 07/14/23 * HgbA1c 07/14/23 * HgbA1c 07/26/23 * Microalbumin Level Urine 07/14/23 * CBC w/ Auto Diff 07/14/23 * Comprehensive Metabolic Panel 07/14/23 * Lipid Panel 07/14/23 [facility] Future App[facility]ments Appointment Date:09/01/2023 01:45:00 PM Scheduled Provider: Location:[facility] Appointment Type:Surgery FT Appointment Date:10/19/2023 12:00:00 PM Scheduled Provider:Troy Coulter MD [facility] Type:Cardiology Follow Up (FT) Appointment Date:07/09/2024 08:00:00 AM Scheduled Provider: Location:[facility] Appointment Type: Medicare Wellness Subsequent Future Scheduled Tests Laboratory* U Protein/Creat Ratio 2824 * HgbA1c 07/14/23 * HgbA1c 24 * Microalbumin Level Urine 07/14/23 * CBC w/ Auto Diff 07/14/23 * Comprehensive Metabolic Panel 07/14/23 * Lipid Panel 07/14/23 [facility] Future App[facility]ments Appointment Date:10/19/2023 12:00:00 PM Scheduled Provider:Troy Coulter MD [facility] Type:Cardiology Follow Up (FT) Appointment Date:07/09/2024 08:00:00 AM Scheduled Provider: Location:[facility] Appointment Type:FM Medicare Wellness Subsequent Future Scheduled Tests Laboratory* U Protein/Creat Ratio 2824 * HgbA1c 24 * HgbA1c 24 * Microalbumin Level Urine 07/14/23 * CBC w/ Auto Diff 07/14/23 * Comprehensive Metabolic Panel 07/14/23 * Lipid Panel 07/14/23 [facility] Future App[facility]ments Appointment Date:10/19/2023 12:00:00 PM Scheduled Provider:Troy Coulter MD [facility] Type:Cardiology Follow Up (FT) Appointment Date:01/10/2024 08:15:00 AM Scheduled Provider:Bryant TAO MD Location:[facility] Appointment Type:URO Office Visit Appointment Date:07/09/2024 08:00:00 AM Scheduled Provider: Location:[facility] Appointment Type: Medicare Wellness Subsequent Diagnostic Tests Pending * PSA Free & Total 12/05/23 Future Scheduled Tests Laboratory* U Protein/Creat Ratio 07/14/23 * HgbA1c 07/14/23 * HgbA1c 07/26/23 * Microalbumin Level Urine 07/14/23 * CBC w/ Auto Diff 07/14/23 * Comprehensive Metabolic Panel 07/14/23 * Lipid Panel 07/14/[address] [facility] Evaluation + Plan note Future Appointments Appointment Date:11/22/2023 10:00:00 AM Scheduled Provider: Location:[facility] Appointment Type:Urology CALL PAT FT Appointment Date:11/28/2023 02:00:00 PM Scheduled Provider: Location:[facility] Appointment Type:Urology FT Appointment Date:11/28/2023 03:00:00 PM Scheduled Provider: Location:[facility] Appointment Type:Urology FT Appointment Date:12/16/2023 09:00:00 AM Scheduled Provider:Javier Goins MD [facility] Type:Cardiology Follow Up (FT) Appointment Date:01/10/2024 08:15:00 AM Scheduled Provider:Bryant TAO MD Location:[facility] Appointment Type:URO Office Visit Appointment Date:07/09/2024 08:00:00 AM Scheduled Provider: Location:[facility] Appointment Type:FM Medicare Wellness Subsequent Future Scheduled Tests Laboratory* U Protein/Creat Ratio 07/14/23 * HgbA1c 07/14/23 * HgbA1c 07/26/23 * Microalbumin Level Urine 07/14/23 * CBC w/ Auto Diff 07/14/23 * Comprehensive Metabolic Panel 07/14/23 * Lipid Panel 07/14/23 [facility] Future App[facility]ments Appointment Date:12/16/2023 09:00:00 AM Scheduled Provider:Javier Goins MD [facility] Appointment Type:Cardiology Follow Up (FT) Appointment Date:01/10/2024 08:15:00 AM Scheduled Provider:Bryant TAO MD Location:[facility] Appointment Type:URO Office Visit Appointment Date:07/09/2024 08:00:00 AM Scheduled Provider: Location:[facility] Appointment Type: Medicare Wellness Subsequent Future Scheduled Tests Laboratory* U Protein/Creat Ratio 24 * HgbA1c 07/14/23 * HgbA1c 24 * Microalbumin Level Urine 07/14/23 * CBC w/ Auto Diff 07/14/23 * Comprehensive Metabolic Panel 07/14/23 * Lipid Panel 07/14/23 [facility] Future Appointments Appointment Date:01/10/2024 08:15:00 AM Scheduled Provider:Bryant TAO MD Location:[facility] Appointment Type:URO Office Visit Appointment Date:01/13/2024 09:00:00 AM Scheduled Provider:Javier Goins MD [facility] Appointment Type:Cardiology Follow Up (FT) Appointment Date:07/09/2024 08:00:00 AM Scheduled Provider: Location:[facility] Appointment Type:FM Medicare Wellness Subsequent Diagnostic Tests Pending * Urine Culture 12/22/23 Future Scheduled Tests Laboratory* U Protein/Creat Ratio 07/14/23 * HgbA1c 07/14/23 * HgbA1c 20 * Microalbumin Level Urine 07/14/23 * CBC w/ Auto Diff 07/14/23 * Comprehensive Metabolic Panel 07/14/23 * Lipid Panel 07/14/23 [facility] Future Appointments Appointment Date:01/10/2024 08:15:00 AM Scheduled Provider:Bryant TAO MD Location:[facility] Appointment Type:URO Office Visit Appointment Date:01/13/2024 09:00:00 AM Scheduled Provider:Javier Goins MD [facility] Appointment Type:Cardiology Follow Up (FT) Appointment Date:07/09/2024 08:00:00 AM Scheduled Provider: Location:[facility] Appointment Type:FM Medicare Wellness Subsequent Diagnostic Tests Pending * Magnesium Level 12/22/23 Future Scheduled Tests Laboratory* U Protein/Creat Ratio 24 * HgbA1c 8/24 * HgbA1c 2/20/24 * Microalbumin Level Urine 07/14/23 * CBC w/ Auto Diff 07/14/23 * Comprehensive Metabolic Panel 07/14/23 * Lipid Panel 07/14/23 [facility] Future Appointments Appointment Date:01/10/2024 08:15:00 AM Scheduled Provider:Bryant TAO MD Location:[facility] Appointment Type:URO Office Visit Appointment Date:01/13/2024 09:00:00 AM Scheduled Provider:Javier Goins MD Location:[facility] Appointment Type:Cardiology Follow Up (FT) Appointment Date:07/09/2024 08:00:00 AM Scheduled Provider: Location:[facility] Appointment Type: Medicare Wellness Subsequent Future Scheduled Tests Laboratory* U Protein/Creat Ratio 07/14/23 * HgbA1c 07/14/23 * HgbA1c 07/26/23 * Microalbumin Level Urine 07/14/23 * CBC w/ Auto Diff 07/14/23 * Comprehensive Metabolic Panel 07/14/23 * Lipid Panel 07/14/23 [facility] Future Appointments Appointment Date:01/11/2024 08:00:00 AM Scheduled Provider: Location:[facility] Appointment Type:FM Lab Draw Appointment Date:01/13/2024 09:00:00 AM Scheduled Provider:Javier Goins MD Location:[facility] Appointment Type:Cardiology Follow Up (FT) Appointment Date:07/09/2024 08:00:00 AM Scheduled Provider: Location:[facility] Appointment Type: Medicare Wellness Subsequent Appointment Date:07/23/2024 08:15:00 AM Scheduled Provider:Bryant TAO MD Location:[facility] Appointment Type:URO Office Visit Diagnostic Tests Pending * PSA Free & Total 01/10/24 Future Scheduled Tests Laboratory* U Protein/Creat Ratio 07/14/23 * HgbA1c 07/14/23 * HgbA1c 07/26/23 * Microalbumin Level Urine 07/14/23 * CBC w/ Auto Diff 07/14/23 * Comprehensive Metabolic Panel 07/14/23 * Lipid Panel 07/14/23 * Magnesium Level 01/05/24 * Urine Culture 01/05/[address] [facility] Evaluation + Plan note Future Appointments Appointment Date:01/13/2024 09:00:00 AM Scheduled Provider:Javier Goins MD [facility] Type:Cardiology Follow Up (FT) Appointment Date:07/09/2024 08:00:00 AM Scheduled Provider: Location:[facility] Appointment Type: Medicare Wellness Subsequent Appointment Date:07/23/2024 08:15:00 AM Scheduled Provider:Bryant TAO MD Location:[facility] Appointment Type:URO Office Visit Future Scheduled Tests Laboratory* U Protein/Creat Ratio 07/14/23 * HgbA1c 07/14/23 * HgbA1c 07/26/23 * Microalbumin Level Urine 07/14/23 * CBC w/ Auto Diff 07/14/23 * Comprehensive Metabolic Panel 07/14/23 * Lipid Panel 07/14/23 [facility] evaluation + Plan note Future Appointments Appointment Date:07/09/2024 08:00:00 AM Scheduled Provider: Location:[facility] Appointment Type: Medicare Wellness Subsequent Appointment Date:07/23/2024 08:15:00 AM Scheduled Provider:Bryant TAO MD Location:[facility] Appointment Type:URO Office Visit Future Scheduled Tests Laboratory* U Protein/Creat Ratio 07/14/23 * HgbA1c 07/14/23 * HgbA1c 07/26/23 * Microalbumin Level Urine 07/14/23 * CBC w/ Auto Diff 07/14/23 * Comprehensive Metabolic Panel 07/14/23 * Lipid Panel 07/14/23 [facility] evaluation + Plan note Future Appointments Appointment Date:07/24/2024 09:20:00 AM Scheduled Provider:TOSHIA Reddy APRN, [place] [facility] Location:[facility] Appointment Type:URO Office Visit Appointment Date:10/08/2024 08:15:00 AM Scheduled Provider:Nancy Grace MD Location:[facility] Appointment Type: Open Appointment Date:01/07/2025 08:15:00 AM Scheduled Provider:Nancy Grace MD Location:[facility] Appointment Type: Open Appointment Date:07/09/2025 08:00:00 AM Scheduled Provider: Location:[facility] Appointment Type:FM Medicare Wellness Subsequent Future Scheduled Tests Laboratory* U Protein/Creat Ratio 07/14/23 * HgbA1c 07/14/23 * HgbA1c 07/26/23 * Microalbumin Level Urine 07/14/23 * CBC w/ Auto Diff 07/14/23 * Comprehensive Metabolic Panel 07/14/23 * Lipid Panel 07/14/23 [facility] Evaluation + Plan note Future Appointments Appointment Date:08/21/2024 09:00:00 AM Scheduled Provider:TOSHIA Reddy APRN, [place] [facility] Location:[facility] Appointment Type:URO Office Visit Appointment Date:10/08/2024 08:15:00 AM Scheduled Provider:Nancy Grace MD Location:[facility] Appointment Type: Open Appointment Date:01/07/2025 08:15:00 AM Scheduled Provider:Nancy Grace MD Location:[facility] Appointment Type: Open Appointment Date:07/09/2025 08:00:00 AM Scheduled Provider: Location:[facility] Appointment Type:FM Medicare Wellness Subsequent Future Scheduled Tests Laboratory* U Protein/Creat Ratio 07/14/23 * HgbA1c 07/14/23 * HgbA1c 07/26/23 * Microalbumin Level Urine 07/14/23 * PSA Free & Total 07/24/24 * CBC w/ Auto Diff 07/14/23 * Comprehensive Metabolic Panel 07/14/23 * Lipid Panel 07/14/[address] [facility] Evaluation + Plan note Future Appointments Appointment Date:08/21/2024 09:00:00 AM Scheduled Provider:TOSHIA Reddy APRN [place] [facility] Location:[facility] Appointment Type:URO Office Visit Appointment Date:10/08/2024 08:15:00 AM Scheduled Provider:Nancy Grace MD [facility]FM Open Appointment Date:01/07/2025 08:15:00 AM Scheduled Provider:Nancy Grace MD [facility]:FM Open Appointment Date:07/09/2025 08:00:00 AM Scheduled Provider: Location:[facility] Appointment Type: Medicare Wellness Subsequent [facility] evaluation + Plan note Future Appointments Appointment Date:09/03/2024 08:20:00 AM Scheduled Provider:RAMANDEEP PORTER PA-C [facility]O Office Visit Appointment Date:10/08/2024 08:00:00 AM Scheduled Provider:Nancy Grace MD [facility]:FM Open Appointment Date:01/07/2025 08:15:00 AM Scheduled Provider:Nancy Grace MD [facility] Type:FM Open Appointment Date:07/09/2025 08:00:00 AM Scheduled Provider: Location:[facility] Appointment Type: Medicare Wellness [facility] Hitechation + Plan note Future Appointments Appointment Date:10/08/2024 08:00:00 AM Scheduled Provider:Nancy Grace MD [facility]:FM Open Appointment Date:01/07/2025 08:15:00 AM Scheduled Provider:Nancy Grace MD [facility] Type:FM Open Appointment Date:07/09/2025 08:00:00 AM Scheduled Provider: [facility] Type: Medicare Wellness [facility] evaluation + Plan note Future Appointments Appointment Date:01/07/2025 08:20:00 AM Scheduled Provider:Nancy Grace MD [facility]:FM Open Appointment Date:03/27/2025 08:00:00 AM Scheduled Provider: [facility]:URO Nurse Visit Appointment Date:04/01/2025 08:15:00 AM Scheduled Provider:[facility]ant [facility]O Office Visit Appointment Date:07/09/2025 08:00:00 AM Scheduled Provider: Location:[facility] Appointment Type: Medicare Wellness Subsequent Future Scheduled Tests Laboratory* PSA Free & Total 09/25/24 * Magnesium Level 10/08/24 [facility] evaluation + Plan note Future Appointments Appointment Date:01/07/2025 08:20:00 AM Scheduled Provider:Nancy Grace MD Location:[facility] Appointment Type: Open Appointment Date:03/27/2025 08:00:00 AM Scheduled Provider: [facility] App[facility] Type:URO Nurse Visit Appointment Date:04/01/2025 08:15:00 AM Scheduled Provider:Bryant TAO MD Location:[facility] [place] Appointment Type:URO Office Visit Appointment Date:07/09/2025 08:00:00 AM Scheduled Provider: Location:[facility] Appointment Type:FM Medicare Wellness Subsequent Diagnostic Tests Pending * Urine Culture 11/14/24 Future Scheduled Tests Laboratory* PSA Free & Total 09/25/24 * Magnesium Level 10/08/24 [facility] evaluation noteNo assessment information available [facility] Work Phone: evaluation note* Diagnosis Carpal tunnel syndrome on both sides- Primary Carpal tunnel syndrome Polyneuropathy Unspecified hereditary and idiopathic peripheral neuropathy [facility] Diagnosis Carpal tunnel syndrome of right wrist- Primary Pain of right hand [facility] Diagnosis Encounter for other preprocedural examination [facility] Preop examination Unspecified pre-operative examination [facility]* Diagnosis S/P carpal tunnel release- Primary Other postprocedural status [facility] Diagnosis S/P carpal tunnel release- Primary Other postprocedural status [facility] Narrative No data available for this section [facility] Discharge instructions No data available for this section [facility] Discharge instructions Additional Instructions DISCHARGE INSTRUCTIONS FOR [...] your post-operative appointment in 1-2 weeks. 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 EMG Marino Kearns [facility] Medicine [address] [place] [address] Phone: tel: fax: Carlos Howe DO [address] [place] [id number] Phone: tel: fax: Referral ID Status Reason Start Date Expiration Date V isits Requested Visits Authorized [id number] Closed Perform Procedure 05/22/2024 11/18/2024 1 1 [facility] Healthcare Summary Purpose Family History Relationship [...] CREATED AUTHOR AUTHOR'S ORGANIZ ATION 09/19/2023 [facility] DATE CREATED AUTHOR AUTHOR'S ORGANIZ ATION 12/26/2023 [facility] DATE CREATED AUTHOR AUTHOR'S ORGANIZ ATION 12/27/2023 [facility] DATE CREATED AUTHOR AUTHOR'S ORGANIZ ATION 12/29/2023 [facility] DATE CREATED AUTHOR AUTHOR'S ORGANIZ ATION 12/30/2023 [facility] DATE CREATED AUTHOR AUTHOR'S [...] CREATED AUTHOR AUTHOR'S ORGANIZ ATION 02/24/2024 [facility] DATE CREATED AUTHOR AUTHOR'S ORGANIZ ATION 07/11/2024 [facility] DATE CREATED AUTHOR AUTHOR'S ORGANIZ ATION 07/18/2024 [facility] DATE CREATED AUTHOR AUTHOR'S ORGANIZ ATION 07/26/2024 [facility] DATE CREATED AUTHOR AUTHOR'S ORGANIZ ATION 08/10/2024 [facility] DATE CREATED AUTHOR AUTHOR'S ORGANIZ ATION 08/17/2024 [facility] DATE CREATED AUTHOR AUTHOR'S ORGANIZ ATION 08/23/2024 [facility] DATE CREATED AUTHOR AUTHOR'S ORGANIZ ATION 09/05/2024 [facility] DATE CREATED AUTHOR AUTHOR'S ORGANIZ ATION 09/25/2024 [facility] DATE CREATED AUTHOR AUTHOR'S ORGANIZ ATION 09/25/2024 [facility] DATE CREATED AUTHOR AUTHOR'S ORGANIZ ATION 10/11/2024 [facility] DATE CREATED AUTHOR AUTHOR'S ORGANIZ ATION 10/12/2024 [facility] DATE CREATED AUTHOR AUTHOR'S ORGANIZ ATION 11/16/2024 [facility] DATE CREATED AUTHOR AUTHOR'S ORGANIZ ATION 11/19/2024 [facility] DATE CREATED AUTHOR AUTHOR'S ORGANIZ ATION 01/09/2025 [facility] DATE CREATED AUTHOR AUTHOR'S ORGANIZ ATION 01/10/2025 [facility] DATE CREATED AUTHOR AUTHOR'S ORGANIZ ATION 02/02/2025 [facility] DATE CREATED AUTHOR AUTHOR'S ORGANIZ ATION 03/10/2025 [facility] DATE CREATED AUTHOR AUTHOR'S ORGANIZ ATION 03/11/2025 [facility] DATE CREATED AUTHOR AUTHOR'S ORGANIZ ATION 03/13/2025 [facility] DATE CREATED AUTHOR AUTHOR'S ORGANIZ ATION 03/18/2025 [facility] Patient Care team informatio n [...] September 09, 2023 End: September 09, 2023 Application Penetration Tester Relationship Specialty Start Date End Date Nancy Grace MD [address] [place] [address] PCP - General Family Medicine 07/18/24 Application Penetration Tester Relationship Specialty Start Date End Date Nancy Grace MD [address] [place] [address] PCP - General Family Medicine 07/18/24 Application Penetration Tester Relationship Specialty Start Date End Date Tyrese Mcgrath MD PCP - General Family Medicine 02/27/18 Application Penetration Tester Relationship Specialty Start Date End Date Nancy Grace MD [address] [place] [address] PCP - General Family Medicine 07/18/24 Application Penetration Tester Relationship Specialty Start Date End Date Nancy Grace MD [address] [place] [address] PCP - General Family Medicine 07/18/24 Application Penetration Tester Relationship Specialty Start Date End Date Nancy Grace MD [address] [place] [address] PCP - General Family Medicine 07/18/24 Application Penetration Tester Relationship Specialty Start Date End Date Nancy Grace MD [address] [place] [address] PCP - General Family Medicine 07/18/24 Application Penetration Tester Relationship Specialty Start Date End Date Nancy Grace MD [address] [place] [address] PCP - General Family Medicine 07/18/24 Application Penetration Tester Relationship Specialty Start Date End Date Nancy Grace MD [address] [place] [address] PCP - General Family Medicine 07/18/24 Team [...] BE BASED ON THE PRIMARY CLINICAL RECORDS. [facility] [employer]. provides no warranty or guarantee of the accuracy or completeness of information in this document.
[2025-03-20 07:21] LABS: Hematocrit 40.1 % (42.0-54.0); Hemoglobin 13.6 g/dL (14.0-18.0); Immature Granulocytes Abs Auto 0.02 10^3/uL (0.00-0.03); Immature Granulocytes Pct Auto 0.4 % (0.0-0.5); Lymphocytes Absolute Auto 1.4 10^3/uL (1.2-3.8); Mean Corpuscular HGB Conc 33.9 g/dL (29.9-35.2); Mean Corpuscular Hemoglobin 33.1 pg (25.9-34.0); Mean Corpuscular Volume 97.6 fL (80.0-94.0); Platelet Count 212 10^3/uL (150-450); Red Blood Count 4.11 10^6/uL (4.70-6.10); White Blood Count 5.4 10^3/uL (4.0-11.0)
[2025-03-20 07:58] LABS: Alanine Aminotransferase 27 U/L (16-63); Albumin Globulin Ratio 1.1; Albumin Level 3.8 g/dL (3.4-5.0); Alkaline Phosphatase 80 U/L (46-116); Anion Gap 14.8; Aspartate Amino Transferase 18 U/L (15-37); Blood Urea Nitrogen 12.0 mg/dL (7.0-18.0); Calcium 8.7 mg/dL (8.5-10.1); Carbon Dioxide 30.4 mmol/L (21.0-32.0); Chloride 102 mmol/L (98-107); Cholesterol 134 mg/dL (<=200); Estimated GFR (African America >60 (>=60 mL/min/1.73m^2); Estimated GFR (Non-African Ame 57 (>=60 mL/min/1.73m^2); Globulin 3.6 g/dL; Glucose 213 mg/dL (74-106); HDL Cholesterol 45 mg/dL (40-60); Potassium 4.2 mmol/L (3.5-5.1); Sodium 143 mmol/L (136-145); Total Protein 7.4 g/dL (6.4-8.2); Triglycerides 104 mg/dL (<=150); VLDL CHOLESTEROL 20.8 mg/dL
[2025-03-20 08:48] LABS: Magnesium 0.7 mg/dL (1.8-2.4)
== END 2025-03-20 06:18 | disposition home or self-care (01) ==
LOC: LAB 06:18
PROVIDERS: PCP Nurse Practitioner Family; Visit Provider Family Medicine
DX: E78.00 Pure hypercholesterolemia, unspecified (principal); R97.20 Elevated prostate specific antigen [PSA]; E11.9 Type 2 diabetes mellitus without complications; I10 Essential (primary) hypertension; N28.9 Disorder of kidney and ureter, unspecified
CPT/HCPCS: 36415; 80053; 80061; 83036; 83735; 84153; 84154; 85025

== ENCOUNTER 2025-03-25 08:00 | Outpatient (RCR) | payer MEDICARE, OTHER, SELFPAY ==
[2025-03-06 07:53] VITALS: BP 162/87; PULSE 85; TEMP 36.6; O2SAT 97
[2025-03-06] MEDS: MAGNESIUM SULFATE IN WATER 4 GM/100 ML PIGGYBACK IV (08:06)
--- NOTE | 2025-03-06 09:20 | PC.NURSE ---
Pt. tolerating infusion without c/o. Denies needs.
[2025-03-25 08:04] VITALS: BP 173/89; PULSE 80; TEMP 36.6; O2SAT 98
[2025-03-25] MEDS: MAGNESIUM SULFATE IN WATER 2 GM/50 ML PREMIX IV (08:37)
== END 2025-04-05 23:59 | disposition home or self-care (01) ==
LOC: INF 08:00
PROVIDERS: PCP Family Medicine; Visit Provider Nurse Practitioner Family
DX: E83.42 Hypomagnesemia (principal)
CPT/HCPCS: 96365; 96366; J3475

== ENCOUNTER 2025-05-01 06:50 | Outpatient (OUT) | payer MEDICARE, OTHER, SELFPAY ==
--- OUTSIDE RECORDS SUMMARY | 2025-04-25 04:01 | XMS_ITS | Continuity of Care Document ---
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 Name Role Phone KarmaKaelIvania DO Primary Care Provider Karma, Ivania DO Attending Provider [phone] Clara Encarnacion APRN Attending Provider Cammie Dumont Attending Provider Care Teams Patient Care Team Team Status: Active Member Role/Relationship Status Dates Ivania Karma , DO Primary Care Provider Active Visit Care Team Team Status: Inactive Member Role/Relationship Status Dates Ivania Karma , DO Primary Care Provider Active S tart: March 18, 2025 End: March 18, 2025Jessica Karma , DOAttending ProviderActiveStart: March 18, 2025 End: March 18, 2025 Visit Care Team Team Status: Active Member Role/Relationship Status Dates Ivania Karma , DO Primary Care Provider Active S tart: March 20, 2025 Ivania Karma , DOAttending ProviderActiveStart: March 20, 2025 Visit Care Team Team Status: Inactive Member Role/Relationship Status Dates Ivania Karma , DO Primary Care Provider Active S tart: April 03, 2025 End: April 03, 2025Brock Oropeza ProviderActiveStart: April 03, 2025 End: April 03, 2025 Visit Care Team Team Status: Inactive Member Role/Relationship Status Dates Clara Encarnacion APRN Attending Provider Active Start: April 03, 2025 End: April 03, 2025 Visit Care Team Team Status: Inactive Member Role/Relationship Status Dates Fernando Dumont MD Attending Provider Active Start : April 17, 2025 End: April 17, 2025Richard Adam Care ProviderActiveStart: April 17, 2025 End: April 17, 2025 Patient Care Team Team Status: Inactive Member Role/Relationship Status Ivania Parada DO Primary Care Provider Active S tart: April 25, 2025 End: April 25, 2025Ivania Parada DOAttending ProviderActiveStart: April 25, 2025 End: April 25, 2025 Chief Complaint and Reason for Visit Chief Complaint Admit Date Establish Care March 18, 2025 8 :01am Dysuria April 03, 2025 9 :40am R30. April 03, 2025 1 0:00am ckd 2 April 17, 2025 10:13am 1M April 25, 2025 8:13am Reason for Visit Admit Date BPH (benign prostatic hyperplasia) Octob er 2024 8:01am Diabetes March 18, 2025 8 :01am Elevated PSA measurement March 18, 2 025 8:01am Hiatal hernia with GERD without esophagi tis March 18, 2025 8:01am Hypercholesteremia March 18, 2025 8 :01am Hypertension March 18, 2025 8 :01am Hypomagnesemia March 18, 2025 8 :01am Kidney disease March 18, 2025 8 :01am Nausea and vomiting March 18, 2025 8 :01am Acute UTI April 03, 2025 9 :40am BPH (benign prostatic hyperplasia) Novem 2024 10:13am CKD (chronic kidney disease) stage 3, GF R 30-59 ml/min April 17, 2025 10:13am Hypertensive chronic kidney disease with stage 1 through stage 4 chronic ki April 17, 2025 10:13am Hypomagnesemia April 17, 2025 10:13am Secondary hyperparathyroidism April 062024 10:13am Tachycardia April 17, 2025 10:13am Type 2 diabetes mellitus wit h diabetic chronic kidney disease April 17, 2025 10:13am Reason for Referral Type Reason(s) Provider Provider Contact Information Jaspreet garcía Address Start Date Referral to molecular technologist Nausea an d vomiting Hiatal hernia with gastroesophageal reflux disease without xsjxrmyxpfaK84.2 - Nausea with vomiting, unspecified,K44.9 - Diaphragmatic hernia without obstruction or gangrene,K21.9 - Gastro-esophageal reflux disease without esophagitisFPG GastroenterologyWork Phone: [phone] [address] [address]sisq[address]24 Allergies, Adverse Reactions, Alerts Allergen Type Severity Reaction Last Updated Verified Status celecoxib Allergy Unknown Unknown Reaction April 25, 2025 8:28am Yes Active Social History Smoking Status Status Start Date End Date Date of Observa tion Ex-smoker (finding) April 17, 2025 10:22am Observation Status Observation Response Date of Response Legal Sex Male (finding) [facility] 1954 Family History Relationship Condition Age at Onset Recorded Date/T kamran mother Diabetes mellitus Unknown HypertensionUnknownfatherHypertensionUnknownMalignant neoplasm of colonUnknown brotherHypertensionUnknownbrotherHypertensionUnknownbrotherHypertensionUnknown Problems Active Problems Problem Diagnosis/Recorded Date Onset Date Status C omments BPH (benign prostatic hyperplasia) September 09, 2023 10:55am Unknown Active Elevated PSA measurementApr2023 10:55amUnknownActiveType 2 diabetes mellitus with diabetic chronic kidney diseaseApril 17, 2025 10:42amUnknown ActiveSecondary hyperparathyroidismApril 17, 2025 10:42amUnknownActive DiabetesApril 2023 10:55amUnknownActiveKidney diseaseMarch 15, 2025 7:43amUnknownActiveCKD (chronic kidney disease) stage 3, GFR 30-59 ml/min April 17, 2025 10:41amUnknownActiveHypertensive chronic kidney disease with stage 1 through stage 4 chronic kidney disease, or unspecified chronic kidney diseaseApril 17, 2025 10:42amUnknownActiveHypercholesteremiaApril 2023 10:56amUnknownActiveTachycardiaApril 2023 10:59amUnknownActiveHiatal hernia with GERD without esophagitisApril 2023 10:55amUnknownActiveAcute UTI April 03, 2025 9:24amUnknownActiveNausea and vomitingOct2024 8:19amUnknownActiveHypertensionApril 2023 10:58amUnknownActive HypomagnesemiaOctober 2024 8:26amUnknownActiveInactive/Resolved Problems Problem Diagnosis/Recorded Date Onset Date Status C omments Lumbar stenosis May 19, 2017 6:49am Unknown Reso lved Problem List clean-up per request of Phys. 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 EHR Cmte Medications Medication Status Dose Units Route Directions Qty Days Refills S tart Date Stop Date End Date Reason(s) Instructions Adherence Atorvastatin 20 mg tablet Active 20 MG PO Daily 90 1Oct2024 11:00pmComplies with drug therapyGlipizide 5 mg tablet Zlzewtrgjekv6RHWHEchwd383Pufftfdj 2024 12:00amNoveer 2024 8:59am Levofloxacin 500 mg alutzfDomtgwwnfmpc016FOJRPauyq896Vxggywxf 2024 12:00am April 17, 2025 10:21amCyclobenzaprine 10 mg ClfsnmKdbafrxymvzf86HPAREapvz times daily as needed for Muscle SpasmOctober 2016 11:00pmApril 2023 10:39amMetformin 500 mg CrjlksYketjrzavvaj248VQTODhelm dailyOct2016 11:00pmOctephraim [facility] 2024 8:17amdmOxycodone-Acetaminophen (Percocet) 5-325 mg GkutnlEydttkadgtiy4YNMIJH44Z as needed for PainOctober 2016 11:00pmApril 2023 10:40amEsomeprazole Magnesium (Nexium) 40 mg Capsule,Delayed Release(Dr/Ec)Nzcrdckdrptp94XJRDCfyizSqgfrpp 2016 11:00pmDeceer 2016 12:15pmgerdLisinopril-Hydrochlorothiazide 10-12.5 mg UikeqwXaduryowxmpn7QJW PODailyOctober 2016 11:00pmDece2016 12:12pmhtnGabapentin (Neurontin) 100 mg AslnqxbFfipdghelljy034NXTXRzady times daily as needed for PainOctober 2016 11:00pmDece2016 9:09amNaproxen Sodium (Aleve) 220 mg FqvpmxHoblsdbenice529GBFMNxuav dailyDe2016 12:00amDece2016 12:56pmpainLisinopril-Hydrochlorothiazide 20-12.5 tabletDiscontinued1 TABPODailyDe2016 12:00amApril 2023 10:40amPantoprazole 40 MG tablet,delayed release (DR/EC)Srrfpgraqdve49VTBVEfiyyHiapqvqm 13th, 2017 12:00am September 09, 2023 10:44amSennosides-Docusate Sodium (Dok Plus) 8.6-50 mg Tablet Diisbkgucuzp2RWKBGQyywr atwez44328JnbfzscbMay 19, 2017 12:00amApril 2023 10:41amOxycodone-Acetaminophen 5-325 mg XydivjZjqntqgwmebr3ZKTCSR3K as needed for Pain Scale 1 - 226464EfgfqrybMay 19, 2017 12:00amApril 2023 10:44am Fentanyl 25 mcg/hr Patch 72 JrelXxpxzzkasfnu16LGLZKDWORVRRHBfuhx 72 ymxgc8586 May 19, 2017 12:00amApril 2023 10:39amFerrous Sulfate 324 mg (65 mg iron) Tablet,Delayed Release (Dr/Ec)Swowhagxypcp147SQQQAevmz bugby86642DpcoyezyMay 19, 2017 12:00amApril 2023 10:40amCephalexin (Keflex) 500 mg capsule Iehawesgvypr858KMHXR0Q5585Gkzqugzi 14th, 2017 12:00amApril 2023 10:39am Amlodipine 5 mg vzughnUbafkjdbqknn00GQDTBlesmPhlay 2023 11:00pmNovember 2024 10:40amGlipizide 5 mg dxkiltNuobszrvcchf8LSECSbuxkNwlwo 2023 11:00pmOctober 2024 7:38amMagnesium Oxide 400 mg (241.3 mg magnesium) perjizHgwzxs173PEDMDtlkeKjlbw 2023 11:00pmComplies with drug therapy Metoprolol Succinate 25 mg tablet extended release 24 laYqvshdnqboxb95NHAHZrfkc September 08, 2023 11:00pmNov2024 10:40amOmeprazole 40 mg capsule,delayed release(DR/EC)Jvfdjj59KTRMUqntyMqntu 2023 11:00pmComplies with drug therapyOndansetron 4 mg tablet,yaphpbmuzyiynqAjovxskaexli0FHIVQQYJPWUQ Every 8 hours as needed for nauseaApril 2023 11:00pmOctephraim m[facility]owell [facility] 2024 7:39amPotassium Chloride 10 mEq capsule, extended qwglsgjNhnpxzfoyecn00ZCGSB DailyApr2023 11:00pmOctephraim mcdowell [facility] 2024 7:15amHydrochlorothiazide 12.5 mg vdjiqxFxtkhn95.2NSFUDpdvz998Vmjbqyya 12th, 2025 12:00amComplies with drug therapyAmlodipine 5 mg askbznEmkrod3MMSXRdfjeXhqlsbxe 12th, 2025 10:39amComplies with drug therapyMetoprolol Succinate 25 mg tablet extended release 24 hr Bxgqebwxhbdq93IQOZSjugc dailyNovant [facility]2024 10:40amNovember 2024 10:40amMetoprolol Succinate 25 mg tablet extended release 24 fkRjaebw04DBVICevax isaao5155Wdsqoyxc 12th, 2025 10:40amComplies with drug therapyAtorvastatin 40 mg xtietmScrxpjdwppge01CNKOXjpauMvmgjum 2024 11:[facility]pm[facility] 20[facility] 11:08am Tamsulosin 0.4 mg capsuleActive0.4MGPODailySparrow [facility] Hospital 2024 11:00pmComplies with drug therapyGabapentin 100 mg lwmpwieRwkvtkdpjkgv082BWGLTogvf at bedtime March 14, 2025 11:00pmOctephraim mcdowell [facility] 2024 7:14amLisinopril 40 mg tabletActive 40MGPODailySparrow [facility] Hospital 2024 11:00pmComplies with drug therapySemaglutide (Ozempic) 0.25 mg or 0.5 mg (2 mg/3 mL) pen injectorDiscontinued0.25MGSUBCUT every weekSparrow Ionia Hospital 2024 11:00pmOctober 2024 7:15amfor 4 weeks Ondansetron 4 mg tablet,dovvykhtngfazrIulhoa9SKTMJnhgn 8 hours as needed for nausea and nbzixppm095Kjoqlih 2024 11:00pmComplies with drug therapy Empagliflozin (Jardiance) 10 mg odnzyjRyyanx11RLUFSczvr699Zyfprfvo 20th, 2025 12:00amComplies with drug therapyGlipizide 10 mg lrsspyFpkngg92NNVBGclvv043 April 25, 2025 8:58amComplies with drug therapyAmoxicillin-Pot Clavulanate 500-125 mg ahsiwwZmhdkihwjblw3WHCTSN4K28380Yczrdeo 2024 11:00pmNovember 2024 10:21am Medical Equipment Device Date Implanted Device Details [place] Three Level Deformity May 18, 2017 CANCELLOUS 30CC CRUSHEDDecember 2016CROSSLINK CAPLOX II MED/LGDecember 2016INFUSE LARGE 8.0CCDecember 2016MAS PLIF INTERBODY NUVASIVE May 18, 2017MAS PLIF INTERBODY NUVASIVEDecember 2016NUVASIVE RELINE RODDecember 2016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December 2016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December 2016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December 2016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December 2016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December 2016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December 2016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December 2016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December 2016NUVASIVE RELINE SET SCREWDecember 2016NUVASIVE RELINE SET SCREWDecember 2016NUVASIVE RELINE SET SCREWDecember 2016 NUVASIVE RELINE SET SCREWDecember 2016NUVASIVE RELINE SET SCREWDecember 2016NUVASIVE RELINE SET SCREWDecember 2016NUVASIVE RELINE SET SCREW Tomi th, 2017NUVASIVE RELINE SET SCREWDecember 2016 Procedures Procedure Date Performed Status Urine Culture April 03, 2025 completed Relevant Diagnostic Tests and/or Laboratory Data Laboratory Results Test Collection Date/Time Result Date/Time Result Interpretation Reference Range Result Comment Performing Site Estimated Average Glucose March 20, 2025 5:42am March 20, 2025 5:42am 171 mg/dL Cholesterol/HDL RatioOct2024 5:42amMarch 20, 2025 5:42am3.03.3 - 4.4 LOW RISK4.4 - 7.1 AVERAGE RISK7.1 - 11.0 MODERATE RISK>11.0 HIGH RISK Magnesium LevelOct2024 5:42amOctober 2024 5:42am0.7 mg/dLBelow lower panic limits1.8-2.4RESULTS CALLED TO Joseph CASH GapMarch 20, 2025 5:42amOctober 2024 5:42am14.8Basophils # (Auto)March 20, 2025 5:42amOctober 2024 5:42am0.1 10 3/uL0.0-0.1Urine ColorOct2024 8:50amOctober 2024 9:00amyellowBedside GlucoseOct2024 9:10amOctober 2024 9:61kq016Hiaseimdjf A2mEuaxasq2024 5:42amOctober 2024 5:42am7.6 %Above high normal4.5-6.2ADA RECOMMENDED LIMIT 4.0 - 6.0ADA THERAPEUTIC TARGET < 7.0ACTION SUGGESTED> 7.0Cholesterol LevelOct2024 5:42amOctober 2024 5:42th871 mg/dL<=200Albumin/Globulin RatioOct2024 5:42amOctober 2024 5:42am1.1Basophils (%) (Auto)March 20, 2025 5:42amOctober 2024 5:42am1.3 %0.2-2.0Urine AppearanceOct2024 8:50amOctober 2024 9:00amcloudyHDL CholesterolOct2024 5:42am March 20, 2025 5:42am45 mg/dL40-60> or =60 mg/dl - LOW CARDIOVASCULAR RISK<40 mg/dl - HIGH CARDIOVASCULAR RISKAlbuminOct2024 5:42amOctober 2024 5:42am3.8 g/dL3.4-5.0Eosinophils # (Auto)March 20, 2025 5:42am March 20, 2025 5:42am0.1 10 3/uL0.0-0.7Urine Glucose (UA)April 03, 2025 8:50amOctober 2024 9:84on966dc/dLLDL Cholesterol, CalculatedMarch 20, 2025 5:42amOctober 2024 5:42am68.2 mg/dL<100 mg/dl PGAWLUV887-262 mg/dl NEAR OR ABOVE FPBXGXQ048-530 mg/dl BORDERLINE QWAN259-560 mg/dl HIGH>190 mg/dl VERY HIGHAlkaline PhosphataseOctober 2024 5:42amOct2024 5:42am 80 U/T00-475Lzymoitkxhr (%) (Auto)March 20, 2025 5:42amOct2024 5:42am2.4 %0.9-7.0Urine BilirubinOctober 2024 8:50amOctober 2024 9:00amnegativeTriglycerides LevelOct2024 5:42amOctober 2024 5:34em430 mg/dL<=150Alanine Aminotransferase (ALT/SGPT)March 20, 2025 5:42am March 20, 2025 5:42am27 U/S65-72VnsifftfhlLxsdvml 2024 5:42amOct2024 5:42am40.1 %Below low pinovp23.0-54.0Urine KetonesOctober 2024 8:50amOctober 2024 9:00amnegativeVLDL CholesterolOct2024 5:42am March 20, 2025 5:42am20.8 mg/dLAspartate Amino Transf (AST/SGOT)March 20, 2025 5:42amOctober 2024 5:42am18 U/M36-50QqyqqxzunxRjzfvge 15th, 2025 5:42amOctober 2024 5:42am13.6 g/dLBelow low .0-18.0Urine Specific GravityOct2024 8:50amOctober 2024 9:00am1.010 BUN/Creatinine RatioOct2024 5:42amOctober 2024 5:42am9.6 Immature Granulocyte # (Auto)March 20, 2025 5:42amOct2024 5:42am 0.02 10 3/uL0.00-0.03Urine Occult BloodOctober 2024 8:50amOctober 2024 9:00ammoderateBlood Urea NitrogenOct2024 5:42amOctober 2024 5:42am12.0 mg/dL7.0-18.0Immature Granulocyte % (Auto)March 20, 2025 5:42amOctober 2024 5:42am0.4 %0.0-0.5Urine pHOctober 2024 8:50am April 03, 2025 9:00am6.5Calcium LevelOct2024 5:42amOctober 2024 5:42am8.7 mg/dL8.5-10.1Lymphocytes # (Auto)March 20, 2025 5:42amOctober 2024 5:42am1.4 10 3/uL1.2-3.8Urine ProteinOctober 2024 8:50amOctober 2024 9:69bb70lm/dLChloride LevelOct2024 5:42amOctober 2024 5:51wd969 mmol/F19-121Rlqgvavilvw (%) (Auto)March 20, 2025 5:42am March 20, 2025 5:42am25.0 %20.5-60.0Urine UrobilinogenOctober 2024 8:50amOctober 2024 9:00am0.2EU/dLCarbon Dioxide LevelOct2024 5:42amOctober 2024 5:42am30.4 mmol/L21.0-32.0Mean Corpuscular Hemoglobin March 20, 2025 5:42amOctober 2024 5:42am33.1 pg25.9-34.0Urine Nitrite April 03, 2025 8:50amOctober 2024 9:00amNegativeCreatinineOct2024 5:42amOctober 2024 5:42am1.25 mg/dL0.70-1.30Mean Corpuscular Hemoglobin ConcentOct2024 5:42amOctober 2024 5:42am33.9 g/dL 29.9-35.2Urine Leukocyte EsteraseOct2024 8:50amOctober 2024 9:00ammoderateEstimated GFR ()March 20, 2025 5:42amOctober 2024 5:42am>60>=60 mL/min/1.73m 2Mean Corpuscular VolumeOct2024 5:42amOctober 2024 5:42am97.6 fLAbove high ixwauk91.0-94.0Estimated GFR (Non- AmericanOct2024 5:42amOctober 2024 5:69aw52Osmhd low normal>=60 mL/min/1.73m 2Monocytes # (Auto)March 20, 2025 5:42amOctober 2024 5:42am0.6 10 3/uL0.3-0.8GlobulinOct2024 5:42amOctober 2024 5:42am3.6 g/dLMonocytes (%) (Auto)March 20, 2025 5:42amOctober 2024 5:42am11.6 %1.7-12.0Glucose LevelOct2024 5:42amOctober 2024 5:45lr298 mg/dLAbove high iucpzk84-054Ftgy Platelet VolumeOctober 2024 5:42amOctober 2024 5:42am9.7 fL9.5-13.5Potassium LevelOctober 2024 5:42amOctober 2024 5:42am4.2 mmol/L3.5-5.1Neutrophils # (Auto) March 20, 2025 5:42amOctober 2024 5:42am3.2 10 3/uL1.4-6.5Sodium Level March 20, 2025 5:42amOctober 2024 5:93po564 mmol/D218-933Huvviixutbc (%) (Auto)March 20, 2025 5:42amOctober 2024 5:42am59.3 %43.0-75.0Total BilirubinOctober 2024 5:42amOctober 2024 5:42am1.5 mg/dLAbove high normal0.2-1.0Platelet CountOctober 2024 5:42amOctober 2024 5:46gj229 10 3/eP159-567Xltgk ProteinOctober 2024 5:42amOctober 2024 5:42am7.4 g/dL6.4-8.2Red Blood CountOctober 2024 5:42amOctober 2024 5:42am4.11 10 6/uLBelow low normal4.70-6.10Red Cell Distribution WidthOctober 2024 5:42amOctober 2024 5:42am12.3 %11.0-15.0Corrected White Blood CountOctober 2024 5:42amOctober 2024 5:42am5.4 10 3/uL4.0-11.0 Microbiology Results Procedure Source Result Collection Date/Time Result Date/Time Result Comment Performing Site Urine Culture Urine Enterobacter fay acae complex April 03, 2025 10:00am April 06, 2025 9:59am [facility] [id number] [address] [place] [id number] Vital Signs Vital Reading Result Reference Range Collection Date/Time Height 69 [in_i] March 18, 2025 7:00ucQbjzqs031.76 kgOctober 2024 7:13amHeart Cfyj079 /hlk09-614Tudukud 2024 7:13amRespiratory rate20 /wvc46-44Sqgxmcv 2024 7:13amOxygen saturation by Pulse ifaiybxc64 %95-100October 2024 7:13amBP Bkutvzqu583 mm[Hg]100-140Oct2024 7:13amBP Icxuuhftw31 mm[Hg] 60-100Oct2024 7:13amBMI (Body Mass Index)35.7 kg/o2Lpryorh 2024 7:00soTlgvku84 [in_i]April 03, 2025 8:50dyOxnrfk527.31 kgOctober 2024 8:43amBody Ehrumtpmkpi09.9 [degF]97.6-99.0Oct2024 8:43amHeart Rate 110 /amn30-822Qzpxovv 29th, 2025 8:43amRespiratory rate18 /ozq59-67Tgshwgf 29th, 2025 8:43amOxygen saturation by Pulse jzuvzjcf15 %95-100Oct2024 8:43amBP Ejcnserg688 mm[Hg]100-140October 2024 8:43amBP Dhjtvuawi56 mm[Hg] 60-100Oct2024 8:43amBMI (Body Mass Index)35.6 kg/u8Legjpmp 2024 8:27pdXentbl58 [in_i]April 17, 2025 10:29ibSvuvsx097.86 kgNovember 2024 10:20amHeart Kzlx167 /lpo62-728Vmrfrdru 2024 10:20amRespiratory rate 16 /ooj18-92Lbfytsjx 12th, 2025 10:20amOxygen saturation by Pulse pdxqawtx723 % 95-100November 2024 10:20amBP Fxdirgrx727 mm[Hg]100-140Nov2024 10:20amBP Rconhzzfk28 mm[Hg]60-100November 2024 10:20amBMI (Body Mass Index)35.4 kg/n4WxeflcksApril 17, 2025 10:13gyElecgc51 [in_i]April 25, 2025 8:65dxNosbss896.22 kgApril 25, 2025 8:24amHeart Rate87 /xpi22-630NzyyrgwjApril 25, 2025 8:24amRespiratory rate20 /qyq11-03GtvufzhlApril 25, 2025 8:24amOxygen saturation by Pulse ehvojotc01 %95-100April 25, 2025 8:24amBP Bsgpezvf212 mm[Hg]100-140April 25, 2025 8:24amBP Uqeffmfuz85 mm[Hg]60-100April 25, 2025 8:24amBMI (Body Mass Index)35.9 kg/s5NcpgxffwApril 25, 2025 8:24am Advance Directives Advance Directive Response Recorded Date/ Time Advance Directives No April 01, 2017 10:34am Insurance Providers Guarantor Bharathi Figueredo Address [address] [place], [place] [address]ontact Info.Home Phone: Coverage Status Update:2025 Payer Group Member ID Coverage Type Subscriber Relationship to Subscriber Effective Date Expiration Date MMO Retired Id: [id number] Lawrence , D Id: [id number] [address] [place], [place] [address] Home Phone: Email: Declined [phone] [id number] Olivas Id: [id number] [address] [place], [place] [address] Home Phone: Email: Declined [id number] Insurance [address] [place] [address] Work Phone: Retired Id: [id number] Lawrence , D Id: [id number] [address] [place] [address] Home Phone: Email: Declined [phone] Encounters Encounter Location(s) Arrival/Admit Date Discharge/Departure Date Discharge/Departure Disposition Provider(s) Departed Physician/ Provider Office Visit -[facility] Family [facility] [place] March 18, 2025 8:01am March 18, 2025 9:26am Discharged to home care or self care (routine discharge) Ivania Parada DO Non-patient / Non-visit -[facility] ctober 2024 6:42am GLORIA Adameparted Physician/Provider Office Visit-[facility] [place] April 03, 2025 9:40amOctober 2024 10:16amDischarged to home care or self care (routine discharge)Nicole Khan APRNDeparted [facility] 2024 10:01amDischarged to home care or self care (routine discharge)Nicole Khan APRNDeparted Physician/Provider Office Visit-[facility] 2024 10:13amNovember 2024 10:45amDischarged to home care or self care (routine discharge)Fernando Dumont MDDeparted Physician/Provider Office Visit-[facility] Family Medicine [facility] 2024 8:13amNovember 2024 9:00amDischarged to home care or self care (routine discharge)Ivania Parada DO Recent Diagnosis Onset Date Admit Date BPH (benign prostatic hyperplasia) Unknown March 18, 2025 8:01am Diabetes Unknown March 18 8:01am Elevated PSA measurement Unknown March 18, 2025 8:01am Hiatal hernia with GERD without esophagitis Unkn own March 18, 2025 8:01am Hypercholesteremia Unknown March 18, 2025 8:01am Hypertension Unknown March 18 8:01am Hypomagnesemia Unknown March 18 8:01am Kidney disease Unknown March 18 8:01am Nausea and vomiting Unknown March 8:01am Acute UTI Unknown April 03 9:40am BPH (benign prostatic hyperplasia) Unknown April 17, 2025 10:13am CKD (chronic kidney disease) stage 3, GFR 30-59 ml/min Unknown April 17, 2025 10:13am Hypertensive chronic kidney disease with stage 1 through stage 4 chronic ki Unknown April 17, 2025 10:13 am Hypomagnesemia Unknown April 17, 025 10:13am Secondary hyperparathyroidism Unknown No vember 2024 10:13am Tachycardia Unknown April 17, 025 10:13am Type 2 diabetes mellitus wit h diabetic chronic kidney disease Unknown April 17, 2025 10:13am Assessments Diagnosis Onset Date Resolution Status Admit Date BPH (benign prostatic hyperplasia) acuteOctober 2024 8:01amDiabetesacuteOctober 2024 8:01amElevated PSA measurementacuteOctober 2024 8:01amHiatal hernia with GERD without esophagitisacuteOctober 2024 8:01amHypercholesteremiaacuteOctober 2024 8:01amHypertensionacuteOctober 2024 8:01amHypomagnesemiaacuteOctober 2024 8:01amKidney diseaseacuteOctober 2024 8:01amNausea and vomiting acuteOctober 2024 8:01amAcute UTIacuteOctober 2024 9:40amBPH (benign prostatic hyperplasia)acuteNovember 2024 10:13amCKD (chronic kidney disease) stage 3, GFR 30-59 ml/minacuteNovember 2024 10:13amHypertensive chronic kidney disease with stage 1 through stage 4 chronic kiacuteNovember 2024 10:13amHypomagnesemiaacuteNovember 2024 10:13amSecondary hyperparathyroidismacuteNovember 2024 10:13amTachycardiaacuteNovember 2024 10:13amType 2 diabetes mellitus with diabetic chronic kidney disease acuteNov2024 10:13am Plan of Treatment Author Fernando Dum[facility] 9:17amHe has hypomagnesemia likely due to the diuretic induced renal magnesium wasting and PPI induced GI malabsorption. Will continue current dose of magnesium. Will continue tamsulosin. It was a pleasure to see Mr. Benjamin in our office for evaluation and management of CKD. As you know he has a longstanding DM with HTN and likely has a CKD as a result of these comorbidities. I have ordered the renal ultrasound to evaluate the renal anatomy. I have ordered a UA and UPCR to evaluate for hematuria and proteinuria. I discussed with him the importance of good DM and HTN control to slow down the progression of CKD. Advised to continue to follow with PCP for DM management. Will continue lisinopril for renal protection. He may benefit with SGLT 2 inhibitors including Farxiga, Jonh Invokana. Will defer this to the PCP. His blood pressure is high and he appears to be hypervolemic. I have reduced amlodipine to 5 mg daily and prescribed him low-dose of hydrochlorothiazide. I have advised him to monitor blood pressure at home and call office if stays above 140 over 90 mmHg. His serum calcium is within normal limit. Will check PTH vitamin D He has a tachycardia and reported to have evaluation by the cardiology in the past. I have increased the dose of the metoprolol to twice daily. Author Ivania Parada [facility]oredOctober 2024 8:31amPatient currently taking metformin and not tolerating. Will stop metformin, check ha1c and decide on further plan of care. Urology, Dr. Tao following. taking tamsulosin, following with urology, Self Caths TID. recheck lipid profile, continue atorvastatin BP stable on the lisinopril, metoprolol and amlodipine, continue these. recheck cmp, has appointment with nephrology. stop metformin, given zofran to use PRN. Referral to GI, check liver and electrolytes. taking omeprazole, has decreased to 20mg daily from 40mg due to low mag; Needs EGD. Smoking history. Referral to GI. stop metformin, taking supplement, recheck mag level; Get GI referral. stop metformin, Given order for labs, GI referral, return to clinic in 1 month. Author Clara Encarnacion [facility] YoungstownAuthoredOctober 2024 9:26amUA with moderate blood, moderate leukocytes. Patient has history of hypomagnesium. Also with history of kidney disease. Will treat with Augmentin. Finish entire course. Push fluids. Patient does have glucose in urine, random blood sugar in the 300s. Discussed with patient I would highly recommend that he checks his blood sugar at home regularly over the next several days and follows up with his PCP if persistently over 300. Discussed elevated blood sugars can cause urinary frequency, increased risk for UTIs. Patient verbalized understanding of treatment plan. Will cx urine and call with results Future Tests Future scheduled test information is unavailable Pending Tests Test Name Ordered Date Scheduled Date Renal Function Panel April 17, 2025 10:40am 1 Weeks US renal BI April 17, 2025 10:42am Comprehensive Metabolic PanelOct2024 8:19am Future Visits Future appointment information is unavailable Future Procedures Procedure Name Ordered Date Scheduled Date Dipstick and Microscopic April 17, 2025 10: 40am 1 Weeks Hemogram CBC Without Diff April 17, 2025 10 :40am 1 Weeks Magnesium April 17, 2025 10:40am 1 We eks Protein Creat Ratio Ur Random April 17 10:40am 1 Weeks Parathyroid Hormone Intact April 17, 2025 1 0:40am 1 Weeks Uric Acid April 17, 2025 10:40am 1 We eks Vitamin D 25 Hydroxy Total April 17, 2025 1 0:40am 1 Weeks Magnesium March 18, 2025 8:19am A1C with Estimated Average GluNovember 2024 8:56am Future Medications Future medication information is unavailable Patient Instructions Patient instructions are unavailable
--- OUTSIDE RECORDS SUMMARY | 2025-05-01 06:53 | XMS_ITS | Clinical Summary ---
Author Organization [facility] Address [address], [address] [place] [address] Care Team Providers Care Compensation And Benefits Analyst Name Role Phone Unavailable Primary Care Provider Unavailabl e Allergies No known active allergies Medications No known medications Active Problems No known active problems Social History Tobacco UseTypesPacks/DayYears UsedDateSmoking Tobacco: Never AssessedSmokeless Tobacco: CurrentSex and Gender InformationValueDate RecordedSex Assigned at BirthNot on fileLegal AnjYcwu2007/16/2012 6:17 PM ESTGender IdentityNot on file Sexual OrientationNot on file Last Filed Vital Signs Vital SignReadingTime TakenCommentsBlood Pressure--Pulse--Temperature-- Respiratory Rate--Oxygen Saturation--Inhaled Oxygen Concentration--Dfrsyg37.8 kg (220 lb)08/09/2017 9:40 AM PEILnbbbb506.5 cm (5' 9.5 )08/09/2017 9:40 AM ESTBody Mass Index32.02008/09/2017 9:40 AM EST Plan of Treatment Not on file Insurance
--- OUTSIDE RECORDS SUMMARY | 2025-05-01 06:53 | XMS_ITS | Clinical Summary ---
Author Organization [facility] Address [address] [place] [address] Phone Care Team Providers Care Wheat Washer Name Role Phone Unavailable Primary Care Provider Unavailabl e Social History Tobacco UseTypesPacks/DayYears UsedDateSmoking Tobacco: Never AssessedSex and Gender InformationValueDate RecordedSex Assigned at BirthNot on fileLegal Sex Male04/30/2022 11:54 PM ESTGender IdentityNot on fileSexual OrientationNot on file Plan of Treatment Health MaintenanceDue DateLast DoneCommentsCT Vrskssqkinck1954Colonoscopy 1954olorectal Cancer Tizolinsc1954FIT-DNA (Cologuard)1954FIT 1954Lipid Panel1954Medicare Annual Wellness Visit (AWV)1955 Yxvszsuozerbb1954MMR Vaccines (1 of 1 - Standard series)1955 Hepatitis C Unmgsdrqa57/09/1972DTaP/Tdap/Td Vaccines (1 - Tdap)1976 Pneumococcal Vaccine (1 of 1 - PCV)2004Zoster Vaccines (1 of 2)2004 Influenza Vaccine (#1)5COVID-19 Vaccine (1 - 2024- season)2025 RSV High Risk: (Elderly (60+) or Population) (1 - 1-dose 75+ series) 2029HIB VaccinesAged OutNo longer eligible based on patient's age to complete this topicHPV VaccinesAged OutNo longer eligible based on patient's age to complete this topicHepatitis A VaccinesAged OutNo longer eligible based on patient's age to complete this topicHepatitis B VaccinesAged OutNo longer eligible based on patient's age to complete this topicIPV VaccinesAged OutNo longer eligible based on patient's age to complete this topicMeningococcal VaccineAged OutNo longer eligible based on patient's age to complete this topic Rotavirus VaccinesAged OutNo longer eligible based on patient's age to complete this topic Insurance
--- OUTSIDE RECORDS SUMMARY | 2025-05-01 06:53 | XMS_ITS | Clinical Summary ---
Author Organization [facility] tem Address [id number] [place] [address] Care Team Providers Care [employer] Lead Name Role Phone Cori Mcgrath MD Primary Care Provider [phone] Social History Tobacco UseTypesPacks/DayYears UsedDateSmoking Tobacco: Never AssessedChildcare AnswerDate FbqcvdwrEbcfoqiioDjqvbew69/12/2019EmploymentAnswerDate Recorded GytsqrcnsnLwfiltr51/12/2019Purpose - LifeAnswerDate RecordedPurpose and direction in bmjqFhdbgah16/11/2021ex and Gender InformationValueDate Recorded Sex Assigned at BirthNot on fileLegal HxeWahh9701/09/2015 12:04 PM EDTGender IdentityNot on fileSexual OrientationNot on file Plan of Treatment Health MaintenanceDue DateLast DoneCommentsDepression Vzapcnzms25/09/1966Tobacco Diutdiomq05/09/1966Adult BMI Gjkjdnwhs13/09/1972DTaP,Tdap and Td Vaccines (1 - Tdap)1973Zoster (Shingles) Vaccine (1 of 2)2004Fall Risk Screening 2019COVID-19 Vaccine ( season)/, 03/16/2023, 04/05/2022, Additional history existsInfluenza Xrkmxae39/, 03/16/2023, 04/05/2022, Additional history existsRSV ( or age 60+ yrs) (1 - 1-dose 75+ series)2029 [employer] Not on file Insurance Care Teams Team MemberRelationshipSpecialtyStart DateEnd Cori Mcgrath MD PCP - GeneralFamily Medicine02/27/18
--- OUTSIDE RECORDS SUMMARY | 2025-05-01 06:53 | XMS_ITS | Clinical Summary ---
Author Organization [facility] Address [address] [place] [address] Care Team Providers Care Meat Seafood Associate Name Role Phone Jose Melchor MD Primary Care Provider [phone] Allergies Active AllergyReactionsCriticalityNoted DateCommentsCelecoxibAnxiety,UnknownLow 08/14/2024 Medications MedicationSigDispense QuantityRefillsLast FilledStart DateEnd DateStatus magnesium oxide (Mag-Ox) 400 MG tablet Take 400 mg by mouth02/20/2024ctive metFORMIN (Glucophage) 500 MG tablet every 12 (twelve) hoursActive metoprolol succinate XL (Toprol-XL) 25 MG 24 hr tablet Take 25 mg by mouth DailyActive Naproxen Sodium (ALEVE PO) Take 220 mg by mouth01/13/2024ctive omeprazole (PriLOSEC) [address] capsule Take 20 mg by mouth Daily05/18/2024ctive tamsulosin (Flomax) 0.4 MG 24 hr capsule Take 0.4 mg by mouth05/07/2024ctive amLODIPine (Norvasc) 5 MG tablet Take by mouth DailyActive lisinopril 40 MG tablet Take 40 mg by mouth DailyActive Active Problems No known active problems Family History RelationNameStatusCommentsFatherDeceasedMotherDeceased Social History Tobacco UseTypesPacks/DayYears UsedDateSmoking Tobacco: FormerCigarettes Smokeless Tobacco: Never Tobacco Cessation:Counseling Given: Not Answered Alcohol UseStandard Drinks/WeekCommentsYes0 (1 standard drink = 0.6 oz pure alcohol)2 BEERS/WKSex and Gender InformationValueDate RecordedSex Assigned at BirthNot on fileLegal RemBjkj6008/18/2022 6:34 PM EDTGender IdentityNot on file Sexual OrientationNot on file Last Filed Vital Signs Vital SignReadingTime TakenCommentsBlood Dfdzfeoo451/9410 12:00 PM EDT Pulse--Temperature--Respiratory Rate--Oxygen Saturation--Inhaled Oxygen Concentration--Hmelws913 kg (253 lb)08/14/2024 2:01 PM VVVYfawgq151.3 cm (5' 9 ) 08/14/2024 2:01 PM EDTBody Mass Index37.36008/14/2024 2:01 PM EDT Plan of Treatment Health MaintenanceDue DateLast DoneCommentsCT Snbxfgtmkxbt1954Colonoscopy 1954FIT1954FOBT1954 7561Jonbjmgiemutr1954neumococcal Vaccine: 65+ Years (2 of 2 - PCV20 or PCV21)/09/2019Colorectal Cancer Gluszszzb00/10/2024FIT-DNA/OVID-19 Vaccine ( season), 03/20/2024, 03/16/2023, Additional history existsInfluenza Vaccine (#1), 03/16/2023, 04/05/2022, Additional history exists Insurance Care Teams Team MemberRelationshipSpecialtyStart DateEnd Jose Melchor MD [address] [place] [address] [facility] - [facility]
--- OUTSIDE RECORDS SUMMARY | 2025-05-01 06:55 | XMS_ITS | CCD ---
Author Organization [facility] Providers Care Sight Effects Specialist Name Role Phone DR TYRESE MCGRATH Admitting Unavailable ASH, DR TYRESE Green Attending Unavailable DR TYRESE MCGRATH Primary Care Unavailable DR TYRESE MCGRATH Consulting Unavailable Nancy Grace Primary Care Physician GINO Porter Attending Provider MD Nancy Grace Primary Care Provider MD Nancy Grace Primary Care Provider [phone] GINO Porter Attending Provider MD Bryant Tao Attending Provider [phone] MARINO KEARNS Attending Unavailable MARINO KEARNS Admitting Unavailable Nancy Grace Attending Unavailable Nancy Grace Attending Unavailable Nancy Grace Admitting Unavailable Akkina, Ramos Consulting Unavailable Artemio Olivares Admitting Unavailable [...] MD Nancy Grace Attending Unavailable Nancy Grace Attending Unavailable Nancy Grace Admitting Unavailable Nancy Grace Attending Unavailable Nancy Grace Admitting Unavailable Nancy Grace Attending Unavailable Akkina, Ramos Admitting Unavailable Akkina, Ramos Attending Unavailable Nancy Grace Attending Unavailable Ross, Nancy E. Admitting Unavailable Akkina, Ramos Attending Unavailable Akkina, Ramos Admitting Unavailable Unavailable Primary Care Provider Unavailabl e Nancy Grace. Attending Unavailable Nancy Grace E. Admitting Unavailable Nancy Grace Attending Unavailable Nancy Grace Admitting Unavailable Nancy Grace Attending Unavailable Nancy Grace MD Primary Care Provider Estefania Reddy Attending Unavailable Nancy Grace Attending Unavailable Nancy Grace EMalgorzata Admitting Unavailable Nancy Grace Admitting Unavailable Nancy Grace Attending Unavailable Tyrese Mcgrath MD Primary Care Provider NONE, XXXX Referring Unavailable MD Javier Goins Attending Unavailable Bryant TAO P Attending Unavailable Nancy Grace Attending Unavailable Nancy Grace Attending Unavailable CHACORTA KEARNS A Attending Unavailabl e Bryant TAO P Attending Unavailable COOKLinusBryant P Attending Unavailable COOKLinusBryant P Attending Unavailable COOK Bryant P Referring Unavailable COOK Bryant P Admitting Unavailable COOK Bryant P Referring Unavailable COOK Bryant P Admitting Unavailable COOK Bryant P Attending Unavailable SHIRA, CHACORTA MARINO A Admitting Unavailabl e CHACORTA KEARNS MARINO A Attending Unavailabl e Nancy Grace Admitting Unavailable Nancy Grace Attending Unavailable CHACORTA KEARNS MARINO A Admitting Unavailabl e SHIRA, [employer] RUNNER COMPOUNDER MARINO A Attending Unavailabl e Jacinto Ramirez [...] Attending Unavailable Nancy Grace Admitting Unavailable JR. 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 MARINO A Attending Unavailabl e Nancy Grace Admitting Unavailable Nancy Grace Attending Unavailable SHIRA, BE[employer]ILL RUNNER COMPOUNDER MARINO A Attending Unavailabl e Nancy Grace Attending Unavailable SHIRA, BE[employer] STILL RUNNER COMPOUNDER MARINO A Admitting Unavailabl e SHIRA, [employer] RUNNER COMPOUNDER MARINO A Attending Unavailabl e SHIRA, [employer]ILL RUNNER COMPOUNDER MARINO A Attending Unavailabl e SHIRA, MARINO [...] Unavailable SHIRA, MARINO A Attending Unavailable SHIRA, [employer] 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 COMPOUNDER MARINO A Attending Unavailabl e SHIRA, [employer]NER COMPOUNDER MARINO A Admitting Unavailabl e Karma Ivania LICONA Primary Care Provider Karma Ivania LICONA Attending Provider Bryant TAO Attending Unavailable Nancy Grace Admitting Unavailable Nancy Grace Attending Unavailable GINO PORTER Admitting Unavailab GINO Kingsley Attending Unavailab le Bryant TAO Attending Unavailable Bryant TAO Attending Unavailable Clara Encarnacion APRN Attending Provider Clara Encarnacion Attending Unavailable Clara Encarnacion Admitting Unavailable Karma Ivania Primary Care Provider [phone] Ivania Vale DO Attending Provider Clara Encarnacion APRN Attending Provider Fernando Dumont MD Attending Provider [phone] Allergies Allergy ClassificationReported Allergen(s)Allergy TypeDate of OnsetReaction(s) Facility (20 sources)celecoxib; Translations: [CeleBREX]Drug AllergyThe [facility] (1 source)CetirizineDrug AllergyThe [facility] (20 sources)celecoxib; Translations: [celecoxib]Drug AllergyUnknown (qualifier value), Anxiety (finding)[facility] (10 sources)celecoxibDrug Uuvcpgl03-44-0665Zjfintb, [facility] (1 source)celecoxibDrug Ubvkinu47-36-5192OgnpgwhbxOhio [facility] Medications Current Medications MedicationDrug Class(es)DatesSig (Normalized)Sig (Original)0.25 MG, 0.5 MG Dose 3 ML semaglutide 0.68 MG/ML Pen Injector [Ozempic] (4 sources)Start: 78-43-4077Zeczwze 2 mg/3 mL (0.25 mg or 0.5 mg dose) subcutaneous solution 0.25 mg, SubCutaneous, qWeek, # 3 mL, Refills(s) 0, Pharmacy: [facility]/pharmacy #[id number], 175.3, cm, 07/16/24 8:18:00 EST, Height/Length Dosing, 114, kg, 07/16/24 8:18:00 EST, Weight Dosing Start Date: 07/16/24 Status: Ordered Quantity: 3.0 Unit: mL Repeat number: 1 Indications: Personal history of nicotine dependence; Type 2 diabetes mellitus with other specified complication; Body mass index [BMI] 37.0-37.9, adult; Obesity, unspecified; H ypomagnesemia;Start: 00-09-6343Yaekqjj 2 mg/3 mL (0.25 mg or 0.5 mg dose) subcutaneous solution 0.25 mg, SubCutaneous, qWeek, # 3 mL, Refills(s) 0, Pharmacy: [facility]/pharmacy #[id number], 175.3, cm, 07/16/24 8:18:00 EST, Height/Length Dosing, 114, kg, 07/16/24 8:18:00 EST, Weight Dosing Start Date: 07/16/24 Status: Orderedacetaminophen 325 mg oral tablet (3 sources)Start: 53-96-1207laac 2 tablets by mouth every six hours as needed for painacetaminophen 325 mg Tab 650 mg = 2 tab(s), Oral, q6hr, PRN Pain, Refills(s) 0 Start Date: 12/30/23 Status: Orderedacetaminophen 325 mg / HYDROcodone bitartrate 5 mg oral tablet (1 source)Opioid AgonistStart: 16-46-3773sdiwcwynmsrjv-hydrocodone 325 mg-5 mg oral tablet Refill(s) 0, 12 tab(s), 0 Refill(s) Start Date: 11/14/24 Status: Ordered Repeat number: 1amLODIPine 5 mg oral tablet (20 sources)Dihydropyridine Calcium Channel BlockerStart: 50-53-4345phrv 1 tablet by mouth once dailyAmlodipine 5 mg tablet Active 5 MG PO Daily April 17, 2025 10:39am Complies with drug therapyStart: 98-31-0150dqVPQIEmaz 5 mg Tab See Instructions, TAKE 1 TABLET DAILY, # 90 tab(s), Refills(s) 3, Pharmacy: [facility], 174, cm, 10/08/24 7:59:00 EDT, Height/Length Dosing, 113, kg, 10/08/24 7:59:00 EDT, Weight Dosing Start Date: 10/16/24 Status: Ordered Quantity: 90.0 Unit: tab(s) Repeat number: 1Start: 57-87-3936hsbr 10 mg by mouth once dailyAmlodipine Active 10 MG PO Daily September 09, 2023 12:00am Start: 08-19-2023 End: 36-41-9382xjyn 2 tablets by mouth once dailyAmlodipine 5 mg tablet Discontinued 10 MG PO Daily September 08, 2023 11:00pm April 17, 2025 10:40am Start: 71-94-0771vvDMRXEfvm 5 mg Tab See Instructions, TAKE 1 TABLET DAILY, # 90 tab(s), Refills(s) 1, Pharmacy: [facility], 175.3, cm, 01/13/24 9:06:00 EDT, Height/Length Dosing, 110.9, kg, 01/13/24 9:06:00 EDT, Weight Dosing Start Date: 01/30/24 Status: Orderedamoxicillin 500 mg oral capsule (2 sources)Penicillin-class AntibacterialStart: 90-89-5916eysn 1 capsule by mouth every twelve hoursamoxicillin 500 mg Cap 500 mg = 1 cap(s), Oral, q12hr, # 20 cap(s), Refills(s) 0, Pharmacy: [facility]/pharmacy #[id number], 175.3, cm, 01/05/24 7:50:00 EDT, Height/Length Dosing, 110, kg, 01/05/24 7:50:00 EDT, Weight Dosing Start Date: 01/05/24 Status: Orderedaspirin 81 mg delayed release oral tablet (19 sources)Platelet Aggregation Inhibitor, Nonsteroidal Anti-inflammatory Drug Start: 86-22-3182xzpe 1 tablet by mouth once dailyaspirin 81 mg Oral EC Tab 81 mg = 1 tab(s), Oral, Daily, # 90 tab(s), Refills(s) 0, Pharmacy: [facility], 174.5, cm, 06/13/23 8:07:00 EST, Height/Length Dosing, 102.3, kg, 06/13/23 8:07:00 EST, Weight Dosing Start Date: 06/13/23 Status: Orderedatorvastatin 20 mg oral tablet (20 sources)HMG-CoA Reductase InhibitorStart: 07-08-6327zrmu 1 tablet by mouth once dailyAtorvastatin 20 mg tablet Active 20 MG PO Daily March 20, 2025 11:00pm Complies with drug therapyStart: 01-30-2024 End: 86-91-3996rwcw 1 tablet by mouth once dailyAtorvastatin 40 mg tablet Discontinued 40 MG PO Daily March 14, 2025 11:00pm March 21, 2025 11:08am Start: 28-45-7326dvhr 1 tablet by mouth once dailyatorvastatin 40 mg Tab 40 mg = 1 tab(s), Oral, Daily, # 90 tab(s), Refills(s) 1, Pharmacy: [facility], 174.5, cm, 06/13/23 8:07:00 EST, Height/Length Dosing, 102.3, kg, 06/13/23 8:07:00 EST, Weight Dosing Start Date: 06/13/23 Status: OrderedStart: 92-25-8517seoi 1 tablet by mouth at bedtimeatorvastatin 20 mg Tab 20 mg = 1 tab(s), Oral, Bedtime, # 90 tab(s), Refills(s) 1, Pharmacy: [facility], 174.5, cm, 02/14/23 7:27:00 EDT, Height/Length Dosing, 115.8, kg, 02/14/23 7:27:00 EDT, Weight Dosing Start Date: 02/14/23 Status: OrderedStart: 21-18-7732xnvr 1 tablet by mouth at bedtimeatorvastatin 20 mg Tab 20 mg = 1 tab(s), Oral, Bedtime, Refills(s) 0 Start Date: 01/13/23 Status: Orderedciprofloxacin 500 mg oral tablet (15 sources)Quinolone AntimicrobialStart: 11-14-2024 End: 48-38-8400jhlh 1 tablet by mouth every twelve hoursCipro 500 mg Tab 500 mg = 1 tab(s), Oral, q12hr, X 7 day(s), # 14 tab(s), Refills(s) 0, Pharmacy: [facility] #[id number], 174, cm, 11/14/24 10:26:00 EDT, Height/Length Dosing, 112.9, kg, 11/14/24 10:26:00 EDT, Weight Dosing Start Date: 11/14/24 Stop Date: 11/21/24 Status: Ordered Quantity: 14.0 Unit: tab(s) Repeat number: 1 Indications: Dizziness and giddiness; Other microscopic hematuria;Start: 12-22-2023 End: 99-94-2192sfoy 1 tablet by mouth every twelve hoursCipro 500 mg Tab 500 mg = 1 tab(s), Oral, q12hr, X 7 day(s), # 14 tab(s), Refills(s) 0, Pharmacy: [facility], 172, cm, 12/22/23 7:41:00 EDT, Height/Length Dosing, 107.8, kg, 12/22/23 7:41:00 EDT, Weight Dosing Start Date: 12/22/23 Stop Date: 12/29/23 Status: OrderedStart: 67-86-4562Fofkg 500 mg Tab See Instructions, Take 1 tab day prior to procedure and 1 tab day of procdure - afterwards, # 2 tab(s), Refills(s) 0, Pharmacy: [facility]/pharmacy #[id number], 174.5, cm, 09/22/23 12:37:00 EDT, Height/Length Dosing, 105.9, kg, 09/22/23 12:37:00 EDT, Weight Dosing Start Date: 09/27/23 Status: OrderedStart: 68-10-8352byqu 1 tablet by mouth twice dailyCipro 500 mg Tab 500 mg = 1 tab(s), Oral, BID, start 3 days prior to procedure, # 14 tab(s), Refills(s) 0, Pharmacy: [facility]/pharmacy #[id number], 174.5, cm, 07/27/23 11:17:00 EST, Height/Length Dosing, 102.3,kg, 07/27/23 11:17:00 EST, Weight Dosing Start Date: 08/03/23 Status: OrderedStart: 79-76-0285Sqgeh 500 mg Tab See Instructions, Take 1 tab day prior to procedure and 1 tab day of procdure - afterwards, # 2 tab(s), Refills(s) 0, Pharmacy: [facility]/pharmacy #[id number], 175.4, cm, 06/28/23 7:53:00 EST, Height/Length Dosing, 106.8, kg, 06/28/23 7:53:00 EST, Weight Dosing Start Date: 06/28/23 Status: OrderedStart: 04-04-2023 End: 68-68-4042ilps 1 tablet by mouth every twelve hoursCipro 500 mg Tab 500 mg = 1 tab(s), Oral, q12hr, X 10 day(s), # 20 tab(s), Refills(s) 0 Start Date: 04/04/23 Stop Date: 04/14/23 Status: Orderedfamotidine 20 mg oral tablet (2 sources)Histamine-2 Receptor AntagonistStart: 69-55-8553niiv 1 tablet by mouth twice dailyPepcid 20 mg Tab 20 mg = 1 tab(s), Oral, BID, # 180 tab(s), Refills(s) 0, [facility]: [facility], 172, cm, 12/27/23 7:51:00 EDT, Height/Length Dosing, 109.8, kg, 12/27/23 7:51:00 EDT, Weight Dosing Start Date: 12/27/23 Status: OrderedFreestyle Alejandra 2 Flash Glucose Monitoring 14 Day System ([place]) (6 sources)Start: 32-90-5641Dfcyrnhlx Alejandra 2 Flash Glucose Monitoring 14 Day System ([place]) Freestyle Alejandra 2 Flash Glucose Monitoring 14 Day System ([place]), See Instructions, 1 EA, 0, Freestyle Alejandra Flash Glucose Monitoring 14 Day System ([place]), [facility]/pharmacy #[id number], Supply, 174.5, cm, 02/14/23 7:27:00 EDT, Height/LengthDosing, 115.8, kg, 02/14/23 7:27:00 EDT, Weight Dosing Start Date: 02/14/23 Status: OrderedFreestyle Alejandra Flash 2 Glucose Monitoring 14 Day System ([place]) (6 sources)Start: 49-34-2780Gjlnpddws Alejandra Flash 2 Glucose Monitoring 14 Day System (Sensor) Freestyle Alejandra Flash 2 Glucose Monitoring 14 Day System (Sensor), See Instructions, 6 EA, 0, Freestyle Alejandra Flash Glucose Monitoring 14 Day System (Sensor). Replace sensor every 14 days., [facility]/pharmacy #[id number], Supply, 174.5, cm, 02/14/23 7:27:00 EDT, Height/Length Dosing, 115.8, kg, 02/14/23 7:27:00 EDT, Weight Dosing Start Date: 02/14/23 Status: OrderedglipiZIDE 5 mg oral tablet (20 sources)SulfonylureaStart: 65-50-3045duyq 1 tablet by mouth once daily Glipizide 5 mg tablet Active 5 MG PO Daily 30 April 08, 2025 12:00am Complies with drug therapyStart: 09-09-2023 End: 37-95-5095azjb 1 tablet by mouth once dailyGlipizide 5 mg tablet Discontinued 5 MG PO Daily September 08, 2023 11:00pm March 15, 2025 7:38am Start: 55-91-2442dwcu 2 tablets by mouth twice dailyglipiZIDE 5 mg Tab 10 mg = 2 tab(s), Oral, BID, # 360 tab(s), Refills(s) 1, Pharmacy: [facility], 174.5, cm, 05/26/23 9:14:00 EST, Height/Length Dosing, 109.1, kg, 05/26/23 9:14:00 EST, Weight Dosing Start Date: 05/26/23 Status: OrderedStart: 39-06-4234tzzk 1 tablet by mouth twice dailyglipiZIDE 5 mg Tab 5 mg = 1 tab(s), Oral, BID, # 90 tab(s), Refills(s) 1, Pharmacy: [facility], 174.5, cm, 05/16/23 7:26:00 EST, Height/Length Dosing, 113.4, kg, 05/16/23 7:26:00 EST, Weight Dosing Start Date: 05/16/23 Status: Ordered Start: 64-55-8409exme 1 tablet by mouth once dailyglipiZIDE 5 mg Tab 5 mg = 1 tab(s), Oral, Daily, # 90 tab(s), Refills(s) 1, Pharmacy: [facility], 174.5, cm, 02/14/23 7:27:00 EDT, Height/Length Dosing, 115.8, kg, 02/14/23 7:27:00 EDT, Weight Dosing Start Date: 02/14/23 Status: OrderedStart: 66-32-6562gkmh 1 tablet by mouth in the morningglipiZIDE 5 mg Tab See Instructions, Take one orally in the morning if blood sugar is > 170, Refi lls(s) 0 Start Date: 01/13/23 Status: OrderedhydroCHLOROthiazide 12.5 mg oral tablet (1 source)Thiazide DiureticStart: 72-54-4393xcnq 1 tablet by mouth once daily Hydrochlorothiazide 12.5 mg tablet Active 12.5 MG PO Daily 90 April 17, 2025 12:00am Complies with drug therapyhydroCHLOROthiazide 12.5 mg / lisinopril 20 mg oral tablet (20 sources)Thiazide Diuretic, Angiotensin Converting Enzyme InhibitorStart: 99-65-5616urutyruhpoxwiecqcsb-lisinopril 12.5 mg-20 mg Tab 1 tab(s), Oral, Daily, 90 tab(s), Refill(s) 0, other reason (Rx) Start Date: 10/19/23 Status: OrderedStart: 05-18-2017 End: 54-37-7005jzvx 1 tablet by mouth once dailyLisinopril-Hydrochlorothiazide 20-12.5 tablet Discontinued 1 TAB PO Daily May 18, 2017 12:00am September 09, 2023 10:40amStart: 04-04-2017 End: 58-19-3415bwqi 1 tablet by mouth once dailyLisinopril-Hydrochlorothiazide 10-12.5 mg Tablet Discontinued 1 TAB PO Daily April 03, 2017 11:00pm May 18, 2017 12:12pm htnlisinopril 40 mg oral tablet (20 sources)Angiotensin Converting Enzyme InhibitorStart: 31-92-3333kifg 1 tablet by mouth once dailyLisinopril 40 mg tablet Active 40 MG PO Daily March 14, 2025 11:00pm Complies with drug therapyStart: 12-30-2023 End: 19-74-7596aduozxmokr 20 mg Tab 40 mg = 2 tab(s), Tab, Oral, NOW, Start date 12/30/23 12:26:00 PM EDT, 12/30/2411:26:00 EDT Start Date: 12/30/23 Stop Date: 12/30/23 Status: Wauahntqu96 hr metFORMIN hydrochloride 500 mg extended release oral tablet (20 sources)BiguanideStart: 57-18-3956pwhj 2 tablets by mouth twice daily Glucophage XR 500 mg Tab-ER 1,000 mg = 2 tab(s), Oral, BID, # 360 tab(s), Refills(s) 3, Pharmacy: [facility], 174, cm, 10/08/24 7:59:00 EDT, Height/Length Dosing, 113, kg, 257:59:00 EDT, Weight Dosing Start Date: 10/08/24 Status: Ordered Quantity: 360.0 Unit: tab(s) Repeat number: 4Start: 93-80-4851cwsp 2 tablets by mouth twice dailyGlucophage XR 500 mg Tab-ER 1,000 mg = 2 tab(s), Oral, BID, # 360 tab(s), Refills(s) 1, Pharmacy: [facility], 175.3, cm, 01/13/24 9:06:00 EDT, Height/Length Dosing, 110.9, kg, 01/13/24 9:06:00 EDT, Weight Dosing Start Date: 04/12/24 Status: OrderedStart: 89-80-8035gzrn 2 tablets by mouth twice dailyGlucophage XR 500 mg Tab-ER 1,000 mg = 2 tab(s), Oral, BID, # 360 tab(s), Refills(s) 1, Pharmacy: [facility], 174, cm, 07/26/23 10:21:00 EST, Height/Length Dosing, 104.8, kg, 07/26/23 10:21:00 EST, Weight Dosing Start Date: 07/26/23 Status: OrderedStart: 98-38-8502dtwn 2 tablets by mouth twice dailyGlucophage XR 500 mg Tab-ER 1,000 mg = 2 tab(s), Oral, BID, # 360 tab(s), Refills(s) 1, Pharmacy: [facility], 174.5, cm, 06/13/23 8:07:00 EST, Height/Length Dosing, 102.3, kg, 06/13/23 8:07:00 EST, Weight Dosing Start Date: 06/13/23 Status: OrderedStart: 11-15-2022 End: 16-10-3718selg 2 tablets by mouth once dailymetformin 500 mg Tab 1,000 mg = 2 tab(s), Oral, Daily, X 90 day(s), # 180 tab(s), Refills(s) 3, Pharmacy: [facility] Start Date: 11/15/22 Stop Date: 11/10/23 Status: OrderedStart: 04-04-2017 End: 57-85-2890yokr 1 tablet by mouth twice dailyMetformin 500 mg Tablet Discontinued 500 MG PO Twice daily April 03, 2017 11:00pm March 8:17am dmmetFORMIN (Glucophage) 500 MG tablet every 12 (twelve) hours Rhxtjb08 hr metoprolol succinate 25 mg extended release oral tablet (20 sources)beta-Adrenergic BlockerStart: 04-17-2025 End: 81-78-5031scru 1 tablet by mouth twice dailyMetoprolol Succinate 25 mg tablet extended release 24 hr Active 25 MG PO Twice daily 180 1 2024 10:40am Complies with drug therapyStart: 08-19-2023 End: 28-62-5071vjsm 1 tablet by mouth once dailyMetoprolol Succinate 25 mg tablet extended release 24 hr Discontinued 25 MG PO Daily September 08, 2023 11:00pm April 17, 2025 10:40amMisc DME Prescription (20 sources)Start: 47-12-4318Unacb: 20-73-4317Qswm DME Prescription [facility] Prescription, See Instructions, 1 kit(s), 0, One Touch Ultra 2 glucose meter kit Use to tests sugars daily E11.9, [facility], Supply, 174.5, cm, 05/26/23 9:14:00 EST, Height/Length Dosing, 109.1, kg, 05/26/23 9:14:00 EST, Weight Dosing Start Date: 05/26/23 Status: OrderedMultiple Vitamins Tab (1 source)Start: 29-86-2997jazb 1 tablet by mouth once dailyMultiple Vitamins Tab 1 tab(s), Oral, Daily, Refill(s) 0, Prophylaxis Start Date: 11/15/12 Status: Orderednaproxen sodium 220 mg oral tablet (20 sources)Nonsteroidal Anti-inflammatory DrugStart: 04-79-7190wsfy 220 mg by mouth every twelve hours as neededAleve 220 mg, Oral, q12hr, se as needed, Refills(s) 0 Start Date: 01/13/24 Status: Ordered Repeat number: 1Start: 05-13-2017 End: 99-28-3759pikn 2 tablets by mouth twice dailyNaproxen Sodium (Aleve) 220 mg Tablet Discontinued 440 MG PO Twice daily May 13, 2017 12:00amDecember 2016 12:56pm painomeprazole 20 mg delayed release oral capsule (20 sources)Proton Pump InhibitorStart: 18-01-2638ysdp 1 capsule by mouth once dailyomeprazole 20 mg Cap-DR See Instructions, TAKE 1 CAPSULE BY MOUTH EVERY DAY, # 90 cap(s), Refills(s) 4, Pharmacy: [facility]/pharmacy #[id number], 174, cm, 09/03/24 8:26:00 EDT, Height/Length Dosing, 112, kg, 09/03/24 8:26:00 EDT, Weight Dosing Start Date: 09/04/24 Status: Ordered Quantity: 90.0 Unit: cap(s) Repeat number: 5 Start: 80-14-3065otll 1 capsule by mouth once dailyomeprazole 20 mg Cap-DR 20 mg = 1 cap(s), Oral, Daily, # 30 cap(s), Refills(s) 0 Start Date: 01/10/24Status: OrderedStart: 16-43-5104bdxg 1 capsule by mouth once dailyOmeprazole 40 mg capsule,delayed release(DR/EC) Active 40 MG PO Daily September 08, 2023 11:00pm Complies with drug therapyStart: 14-82-9280vnxs 1 capsule by mouth once daily omeprazole 40 mg Cap-DR 40 mg = 1 cap(s), Oral, Daily, # 90 cap(s), Refills(s) 0, [facility]: [facility], 174, cm, 07/26/23 10:21:00 EST, Height/Length Dosing, 104.8, kg, 07/26/23 10:21:00 EST, Weight Dosing Start Date: 07/26/23 Status: OrderedStart: 36-26-4270ywzh 1 capsule by mouth once daily omeprazole 40 mg Cap-DR 40 mg = 1 cap(s), Oral, Daily, # 90 cap(s), Refills(s) 0, Pharmacy: [facility], 174.5, cm, 06/21/23 13:33:00 EST, Height/Length Dosing, 102.3, kg, 06/21/23 13:33:00 EST, Weight Dosing Start Date: 06/23/23 Status: Orderedondansetron 4 mg disintegrating oral tablet (10 sources)Serotonin-3 Receptor AntagonistStart: 51-54-3799vwmp 1 tablet by mouth every eight hours as needed for nausea and vomitingOndansetron 4 mg tablet,disintegrating Active 4 MG PO Every 8 hours as needed for nausea and vomiting March 17, 2025 11:00pm Complies with drug therapyStart: 31-22-5372uuih 1 tablet by mouth every six hours as needed for nauseaZofran 4 mg Tab 4 mg = 1 tab(s), Oral, q6hr, PRN Nausea, # 8 tab(s), Refills(s) 1, Pharmacy: [facility]/pharmacy #[id number], 174, cm, 01/29/25 7:51:00 EDT, Height/Length Dosing, 109.7, kg, 01/29/25 7:51:00 EDT, Weight Dosing Start Date: 01/29/25 Status: Ordered Quantity: 8.0 Unit: tab(s) Repeat number: 2 Indications: Personal history of nicotine dependence; Dysuria; Obesity, unspecified; Body mass index [BMI]36.0-36.9, adult;Start: 09-09-2023 End: 57-49-1822Lnpuepnuxad 4 mg tablet,disintegrating Discontinued 4 MG TRANSLINGU Every 8 hours as needed for nausea September 08, 2023 11:00pm March 15, 2025 7:39amtamsulosin hydrochloride 0.4 mg oral capsule (20 sources)alpha-Adrenergic BlockerStart: 19-12-2397iaky 1 capsule by mouth every twenty-four hourstamsulosin (Flomax) 0.4 MG 24 hr capsule Take 0.4 mg by mouth 05/07/2024 ActiveStart: 23-39-0292vfmi 1 capsule by mouth once daily Tamsulosin 0.4 mg capsule Active 0.4 MG PO Daily March 14, 2025 11:00pm Complies with drug therapyStart: 68-07-7994hxjw 1 capsule by mouth once daily in the eveningtamsulosin 0.4 mg Cap 0.4 mg = 1 cap(s), Oral, qPM, # 90 cap(s), Refills(s) 3, Pharmacy: [facility], 175.3, cm, 01/13/24 9:06:00 EDT, Height/Length Dosing, 110.9, kg, 01/13/24 9:06:00 EDT, Weight Dosing Start Date: 01/20/24 Status: OrderedStart: 71-20-1433glse 1 capsule by mouth once daily in the eveningtamsulosin 0.4 mg Cap 0.4 mg = 1 cap(s), Oral, qPM, Refills(s) 0 Start Date: 06/14/23 Status: OrderedStart: 00-80-1475ptdo 1 capsule by mouth at bedtimetamsulosin 0.4 mg Cap 0.4 mg = 1 cap(s), Oral, Bedtime, Refills(s) 0 Start Date: 01/13/23 Status: OrderedTherapeutic Multiple Vitamin Tab (12 sources)Start: 54-49-0837Epsvgksfyib Multiple Vitamin Tab See Instructions, 90 cap(s), Refill(s) 0, Oral Daily Start Date: 12/30/23 Status: Ordered Quantity: 90.0 Unit: cap(s) Repeat number: 1Start: 24-94-5186Dndxzjfdras Multiple Vitamin Tab See Instructions, 90 cap(s), Refill(s) 0, Oral Daily Start Date: 12/30/23 Status: OrderedVitamin B Complex oral capsule (1 source)Start: 18-11-5634twua 1 capsule by mouth once dailyVitamin B Complex oral capsule 1 cap(s), Oral, Daily, Refill(s) 0, Prophylaxis Start Date: 11/15/12 Status: Orderedvitamin b12 1 mg oral tablet (6 sources)Vitamin I99Jjrjk: 45-85-3081mivh 1 tablet by mouth once daily cyanocobalamin 1000 mcg Tab 1,000 mcg = 1 tab(s), Oral, Daily, # 90 tab(s), Refills(s) 0, Pharmacy:[facility], 175.3, cm, 01/13/24 9:06:00 EDT, Height/Length Dosing, 110.9, kg, 01/13/24 9:06:00 EDT, Weight Dosing Start Date: 01/26/24 Status: OrderedStart: 63-15-7279dcri 1 tablet by mouth once dailycyanocobalamin 1000 mcg Tab 1,000 mcg = 1 tab(s), Oral, Daily, # 30 tab(s), Refills(s) 0, Pharmacy:[facility]/pharmacy #[id number], 172, cm, 12/29/23 13:54:00 EDT, Height/Length Dosing, 109.8, kg, 12/29/23 13:54:00 EDT, Weight Dosing Start Date: 12/30/23 Status: OrderedZofran ODT 4 mg Tab-Dis (14 sources)Start: 56-51-2846vxgg 1 tablet by mouth every eight hours as needed for nauseaZofran ODT 4 mg Tab-Dis 4 mg = 1 tab(s), Oral, q8hr, PRN Nausea/Vomiting, # 12 tab(s), Refills(s) 0, Pharmacy: [facility]/pharmacy #[id number], 172, cm, 08/15/23 7:04:00 EDT, Height/Length Dosing, 107.2, kg, 08/15/23 7:04:00 EDT, Weight Dosing Start Date: 08/15/23 Status: OrderedStart: 29-99-9417zkuo 1 tablet by mouth every eight hours as needed for nauseaZofran ODT 4 mg Tab-Dis 4 mg = 1 tab(s), Oral, q8hr, PRN Nausea/Vomiting, # 12 tab(s), Refills(s) 0, [id number] 175.4, cm, 06/28/23 7:53:00 EST, Height/Length Dosing, 106.8, kg, 06/28/23 7:53:00 EST, Weight Dosing Start Date: 07/13/23 Status: Ordered Completed/Discontinued Medications MedicationDrug Class(es)DatesSig (Normalized)Sig (Original)acetaminophen 325 mg / oxyCODONE hydrochloride 5 mg oral tablet (14 sources)Opioid AgonistStart: 05-19-2017 End: 65-31-6388vmfo 1 tablet by mouth every six hours as needed for pain Oxycodone-Acetaminophen 5-325 mg Tablet Discontinued 1 TAB PO Q6H as needed for Pain Scale 1 - 5 4014 0 May 19, 2017 12:00am September 09, 2023 10:44am Start: 04-04-2017 End: 30-99-5476uodw 1 tablet by mouth every twelve hours as needed for pain Oxycodone-Acetaminophen (Percocet) 5-325 mg Tablet Discontinued 1 TAB PO Q12H as needed for Pain April 03, 2017 11:00pm September 09, 2023 10:40amamoxicillin 500 mg / clavulanate 125 mg oral tablet (2 sources)Penicillin-class AntibacterialStart: 04-03-2025 End: 80-53-9759xpux 1 tablet by mouth every eight hoursAmoxicillin-Pot Clavulanate 500-125 mg tablet Discontinued 1 TAB PO Q8H 30 10 0 April 02, 2025 11:00pm April 17, 2025 10:21amcephalexin 500 mg oral capsule (13 sources)Cephalosporin AntibacterialStart: 85-22-1117Inytfy 500 mg Cap 500 mg = 1 cap(s), Oral, As Directed, Pt to take 1 tab the day before procedure and the 2nd tab the day of procedure once completed., # 2 cap(s), Refills(s) 0, Pharmacy: [facility]/pharmacy #[id number], 174.5, cm, 09/22/23 12:37:00 EDT, Height/Length Dosing, 105.9, kg, 09/22/23 12:37:00 EDT, Weight Dosing Start Date: 09/22/23 Status: OrderedStart: 05-26-2023 End: 92-35-2055voti 1 capsule by mouth four times dailyKeflex 250 mg Cap 250 mg = 1 cap(s), Oral, QID, X 7 day(s), # 28 cap(s), Refills(s) 0, [id number] 174.5, cm, 05/26/23 9:14:00 EST, Height/Length Dosing, 109.1, kg, 05/26/23 9:14:00EST, Weight Dosing Start Date: 05/26/23 Stop Date: 06/02/23 Status: OrderedStart: 05-16-2023 End: 66-39-6897edts 1 capsule by mouth four times dailyKeflex 250 mg Cap 250 mg = 1 cap(s), Oral, QID, X 7 day(s), # 28 cap(s), Refills(s) 0, Pharmacy: [facility], 174.5, cm, 05/16/23 7:26:00 EST, Height/Length Dosing, 113.4, kg, 05/16/23 7:26:00 EST, Weight Dosing Start Date: 05/16/23 Stop Date: 05/23/23 Status: OrderedStart: 05-19-2017 End: 02-54-0019kdew 1 capsule by mouth every eight hoursCephalexin (Keflex) 500 mg capsule Discontinued 500 MG PO Q8H 21 7 0 May 19, 2017 12:00am September 09, 2023 10:39amcyclobenzaprine hydrochloride 10 mg oral tablet (7 sources)Muscle RelaxantStart: 04-04-2017 End: 07-69-2955qojs 1 tablet by mouth three times daily as needed for muscle spasmsCyclobenzaprine 10 mg Tablet Discontinued 10 MG PO Three times daily as needed for Muscle Spasm April 03, 2017 11:00pm September 09, 2023 10:39am docusate sodium 50 mg / sennosides, custodial 8.6 mg oral tablet (7 sources)Start: 05-19-2017 End: 90-21-2520nljm 2 tablets by mouth twice dailySennosides-Docusate Sodium (Dok Plus) 8.6-50 mg Tablet Discontinued 2 TAB PO Twice daily 40 14 May 19, 2017 12:00am September 09, 2023 10:41amesomeprazole 40 mg delayed release oral capsule (7 sources)Proton Pump InhibitorStart: 04-04-2017 End: 60-91-0635eqzz 1 capsule by mouth once dailyEsomeprazole Magnesium (Nexium) 40 mg Capsule,Delayed Release(Dr/Ec) Discontinued 40 MG PO Daily April 03, 2017 11:00pm May 18, 2017 12:15pm gerd72 hr fentaNYL 0.025 mg/hr transdermal system (7 sources)Opioid AgonistStart: 05-19-2017 End: 68-17-0219Vjpkzone 25 mcg/hr Patch 72 Hour Discontinued 25 MCG TRANSDERML Every 72 hours 5 14 May 19, 2017 12:00am September 09, 2023 10:39amferrous sulfate 324 mg delayed release oral tablet (7 sources)Start: 05-19-2017 End: 00-10-8356bwpc 1 tablet by mouth twice dailyFerrous Sulfate 324 mg (65 mg iron) Tablet,Delayed Release (Dr/Ec) Discontinued 324 MG PO Twice daily 30 May 19, 2017 12:00am September 09, 2023 10:40amgabapentin 100 mg oral capsule (15 sources)Anti-epileptic AgentStart: 03-15-2025 End: 28-31-1067dddt 1 capsule by mouth once daily at bedtimeGabapentin 100 mg capsule Discontinued 100 MG PO Daily at bedtime March 14, 2025 11:00pm 2024 7:14amStart: 61-69-0091mros 1 capsule by mouth once daily at bedtimegabapentin 100 mg Cap 100 mg = 1 cap(s), Oral, Once a day (at bedtime), # 30 cap(s), Refills(s) 0, Pharmacy: [facility]/pharmacy #[id number], 175.3, cm, 05/18/24 7:58:00 EST, Height/Length Dosing, 112.1, kg, 05/18/24 7:58:00 EST, Weight Dosing Start Date: 05/18/24 Status: OrderedStart: 04-04-2017 End: 42-50-1713sgho 1 capsule by mouth three times daily as needed for pain Gabapentin (Neurontin) 100 mg Capsule Discontinued 100 MG PO Three times daily as needed for Pain April 03, 2017 11:00pm May 13, 2017 9:09am levoFLOXacin 500 mg oral tablet (2 sources)Quinolone AntimicrobialStart: 04-08-2025 End: 09-07-8948wxyx 1 tablet by mouth once dailyLevofloxacin 500 mg tablet Discontinued 500 MG PO Daily 7 7 0 April 08, 2025 12:00am April 17, 2025 10:21amStart: 12-30-2023 End: 22-22-6723uhpc 1 tablet by mouth every twenty-four hoursLevaquin 500 mg Tab 500 mg = 1 tab(s), Oral, q24hr, X 10 day(s), # 10 tab(s), Refills(s) 0, Pharmacy: [facility]/pharmacy #[id number], 172, cm, 12/29/23 13:54:00 EDT, Height/Length Dosing, 109.8, kg, 12/29/23 13:54:00 EDT, Weight Dosing Start Date: 12/30/23 Stop Date: 01/09/24 Status: Orderedmagnesium oxide 400 mg oral tablet (20 sources)Start: 82-42-9525gnlbbvyij oxide 400 mg Tab 400 mg = 1 tab(s), Oral, TID, 90 EA, 0 Refill(s), TAKE 1 TABLET BY MOUTHTHREE TIMES A DAY, # 90 tab(s), Refills(s) 0, [id number] 174, cm, 11/14/24 10:26:00 EDT, Height/Length Dosing, 112.9, kg, 11/14/24 10:26:00 EDT, Weight Dosing Start Date: 11/14/24 Status: Ordered Quantity: 90.0 Unit: tab(s) Repeat number: 1Start: 05-41-4744qbboltbvd oxide (Mag-Ox) 400 MG tablet Take 400 mg by mouth 02/20/2024 ActiveStart: 73-35-1317jgqc 1 tablet by mouth three times daily magnesium oxide 400 mg Tab 400 mg, Oral, TID, dose change-last magnesium level completed 01/11/24-, #90 tab(s), Refills(s) 3, Pharmacy: [facility], 175.3, cm, 01/13/24 9:06:00 EDT, Height/Length Dosing, 110.9, kg, 01/13/24 9:06:00 EDT, Weight Dosing Start Date: 01/30/24 Status: OrderedStart: 53-36-0842kcls 1 tablet by mouth twice dailymagnesium oxide 400 mg Tab 400 mg = 1 tab(s), Oral, BID, # 60 tab(s), Refills(s) 0, Pharmacy: [facility]/pharmacy #[id number], 172, cm, 12/29/23 13:54:00 EDT, Height/Length Dosing, 109.8, kg, 12/29/23 13:54:00 EDT, Weight Dosing Start Date: 12/30/23 Status: OrderedStart: 08-18-2023 take 1 tablet by mouth once dailyMagnesium Oxide 400 mg (241.3 mg magnesium) tablet Active 400 MG PO Daily September 08, 2023 11:00pm Complies with drug therapy Start: 62-31-6129jtnd 1 tablet by mouth once dailymagnesium oxide 400 mg Tab 400 mg = 1 tab(s), Oral, Daily, # 60 tab(s), Refills(s) 0, Pharmacy: [facility]/pharmacy #[id number], 175, cm, 06/14/23 10:52:00 EST, Height/Length Dosing, 102.3, kg, 06/14/23 10:52:00 EST, Weight Dosing Start Date: 06/15/23 Status: Orderedmetoprolol 1 mg/mL Inj (1 source)Start: 09-01-2023 End: 44-52-3358ovxcep 10 mg intravenously oncemetoprolol 1 mg/mL Inj 10 mg = 10 mL, Injection, IV Push, Once, Stop date 09/01/23 10:51:00 AM EDT, Routine, Start date 09/01/23 11:00:00 AM EDT, 09/01/23 10:36:00 EDT Start Date: 09/01/23 Stop Date: 09/01/23 Status: Completedpantoprazole 40 mg delayed release oral tablet (7 sources)Proton Pump InhibitorStart: 05-18-2017 End: 62-56-7938bpur 1 tablet by mouth once dailyPantoprazole 40 MG tablet,delayed release (DR/EC) Discontinued 40 MG PO Daily May 18, 2017 12:00am September 09, 2023 10:44ampotassium chloride 10 meq extended release oral capsule (20 sources)Start: 09-09-2023 End: 06-96-7593uhpz 1 capsule by mouth once dailyPotassium Chloride 10 mEq capsule, extended release Discontinued 10 MEQ PO Daily September 08, 2023 11:00pm March 18, 2025 7:15amStart: 49-98-1053itbx 1 capsule by mouth once daily potassium chloride 10 mEq Cap-ER 10 mEq = 1 cap(s), Oral, Daily, # 30 cap(s), Refills(s) 0, Pharmacy: [facility]/pharmacy #[id number], 172, cm, 08/15/23 7:04:00 EDT, Height/Length Dosing, 107.2, kg, 08/15/23 7:04:00 EDT, Weight Dosing Start Date: 08/18/23 Status: OrderedStart: 53-54-2869qpio 1 capsule by mouth once daily potassium chloride 10 mEq Cap-ER 10 mEq = 1 cap(s), Oral, Daily, # 30 cap(s), Refills(s) 0, Pharmacy: [facility]/pharmacy #[id number], 175, cm, 06/14/23 10:52:00 EST, Height/Length Dosing, 102.3, kg, 06/14/23 10:52:00 EST, Weight Dosing Start Date: 06/15/23 Status: OrderedStart: 05-26-2023 End: 99-60-3594epep 1 tablet by mouth twice dailyPotassium Chloride (Eqv-K-Tab) 20 mEq oral tablet, extended release 20 mEq = 1 tab(s), Oral, BID, X7 day(s), # 14 tab(s), Refills(s) 0, Pharmacy: [facility]/pharmacy #[id number], 174.5, cm, 05/26/23 9:14:00 EST,Height/Length Dosing, 109.1, kg, 05/26/23 9:14:00 EST, Weight Dosing Start Date: 05/26/23 Stop Date: 06/02/23 Status: OrderedSemaglutide (4 sources)Start: 03-15-2025 End: 24-10-3892Mtykfxobnny (Ozempic) 0.25 mg or 0.5 mg (2 mg/3 mL) pen injector Discontinued 0.25 MG SUBCUT every week March 14, 2025 11:00pm March 18, 2025 7:15am for 4 weeksStart: 03-15-2025 End: 54-63-3511Hgypfhspmuw (Ozempic) 0.25 mg or 0.5 mg (2 mg/3 mL) pen injector Discontinued 0.25 MG SUBCUT every week March 15, 2025 12:00am March 18, 2025 8:15am for 4 weeks Problems Problem ClassificationProblemDateDocumented DateEpisodic/ChronicAbdominal hernia (7 sources)Gastroesophageal reflux disease with hiatal hernia; Translations: [Diaphragmatic hernia without obstruction or gangrene]45-04-5860Soizlepc Abdominal pain (20 sources)Right flank dqyc73-90-9302UusifqxiBmyikmo-lmnhqyh disorders (20 sources)Alcohol abuse; Translations: [Nondependent alcohol abuse in remission]Onset: 076543-71-3726HfhdzdoZdaayfx on above:added per 07/13/2024 query response.Calculus of urinary tract (20 sources)Kidney stone; Translations: [Calculus of kidney]Onset: 06-21-2023 EpisodicCardiac dysrhythmias (20 sources)Tzllhsmfnhz26-46-2494LkuibbpiTxsethu kidney disease (9 sources)Chronic kidney disease stage 2; Translations: [Chronic kidney disease stage 3]54-76-9369ZqoukcxZctxznrzah associated with dizziness or vertigo (20 sources)Djknyucum48-03-7119SehjyzilNedopugkpc heart failure; nonhypertensive (20 sources)Diastolic gtgnnyvufuw52-97-5687DfronjtQokvexxyms and other anemia (1 source)Anemia; Translations: [Anemia, unspecified]Onset: 53-43-3641Ajsvwhjd Diabetes mellitus with complications (20 sources)Type 2 diabetes mellitus with unspecified complications; Translations: [Renal disorder due to type 2 diabetes mellitus]Onset: 07-13-2022 ChronicComment on above:added per 07/06/2024 query response.Diabetes mellitus without complication (20 sources)Type 2 diabetes mellitus without complication; Translations: [Type 2 diabetes mellitus without complications]Onset: hronic Comment on above:linked DM with HLD per OP CDI policy.Disorders of lipid metabolism (20 sources)Pure hypercholesterolemia, unspecified; Translations: [Hypercholesterolemia]Onset: 631818-44-4308TehyeeiVpoynwmpku disorders (20 sources)Gastroesophageal reflux disease without esophagitis; Translations: [Gastro-esophageal reflux disease without esophagitis]Onset: 12-29-2023 47-49-6889ZayvidlSzgheacxet disorders (4 sources)Esophageal disordersEssential hypertension (20 sources)Essential (primary) hypertension; Translations: [Hypertensive disorder]Onset: 328581-65-2729JbdyurlExpfg and electrolyte disorders (20 sources)Sykbopqcatt91-14-5494DsugeqlaPuwdivvqdyyub symptoms and ill-defined conditions (20 sources)Blood in urine; Translations: [Increased frequency of urination] Onset: 529929-31-6469AelntfkaSduuw valve disorders (20 sources)Heart lksfba06-03-4930HvchnnayWikkjbfxohw of prostate (20 sources)Benign prostatic hypertrophy with outflow obstruction; Translations: [Benign prostatic hyperplasia with lower urinary tract symptoms]Onset: 91-28-0880YuifbzjIldgxiamxsll with complications and secondary hypertension (3 sources)Hypertensive urgency ; Translations: [Hypertensive urgency]Onset: 59-27-1921AjnuqzpOscikjs and fatigue (20 sources)Cqaxcok43-89-7055MspmbmjvEifw disorders (20 sources)Recurrent major depressive episodes, moderate ; Translations: [Depressive disorder]Onset: 778910-20-0949IqwmpciRcgyzra on above:added per 06/10/2023 query response.Nausea and vomiting (10 sources)Nausea and vomiting; Translations: [Nausea with vomiting, unspecified]10-25-8570IlmwpaouHkyme aftercare (6 sources)Post-discharge ylfbwn-ig41-58cv86-44-0480PkqxpzjyBsqbu aftercare (1 source)Long-term current use of drug therapy; Translations: [Other residential (current) drug therapy]Onset: 08-33-4647WmhelphvPnzbf connective tissue disease (2 sources)Pain in right hand; Translations: [Pain in right hand]07-18-2024 EpisodicOther diseases of bladder and urethra (4 sources)Neurogenic dysfunction of the urinary bladder; Translations: [Neuromuscular dysfunction of bladder,unspecified]Onset: 82-74-7970AynefxbOjuxw diseases of bladder and urethra (14 sources)Paralysis of axkzceg61-82-5227BmdovieKbypn diseases of kidney and ureters (2 sources)Secondary hyperparathyroidism; Translations: [Secondary hyperparathyroidism of renal origin]98-49-9737LfpwhgeWpxrl diseases of kidney and ureters (1 source)Urinary tract obstruction; Translations: [Other obstructive and reflux uropathy]Onset: 55-98-0351WynndxfwDhyqq diseases of kidney and ureters (7 sources)Kidney disease; Translations: [Disorder of kidney and ureter, unspecified]87-24-7600VvlrnuxhYauwz lower respiratory disease (20 sources)Dyspnea on -61-1077UswlwvjkUtqbq male genital disorders (1 source)Disorder of prostate, unspecified; Translations: [DISORDER OF PROSTATE UNSPECIFIED]Onset: 88-92-2826GkikaurkTtant male genital disorders (11 sources)Disorder of hwfumskk28-92-0813XnmszjejWoqqr male genital disorders (20 sources)Prostatic intraepithelial neoplasia; Translations: [Prostatic intraepithelial neoplasia]Onset: 43-47-4856YopmhrhkVkbqe nervous system disorders (1 source)Bilateral carpal tunnel syndrome; Translations: [Carpal tunnel syndrome, bilateral upper limbs]63-86-9299KsoqdtaBvdow nervous system disorders (1 source)Polyneuropathy; Translations: [Polyneuropathy, unspecified]05-22-2024 ChronicOther nervous system disorders (2 sources)Carpal tunnel syndrome of right wrist; Translations: [Carpal tunnel syndrome, right upper limb]59-91-2876LoehovyDoziv nutritional; endocrine; and metabolic disorders (1 source)Obese class II; Translations: [Body mass index (BMI) 37.0-37.9, adult] Onset: 23-28-4114VbsasaaBwobl nutritional; endocrine; and metabolic disorders (2 sources)Obesity; Translations: [Other obesity due to excess calories]Onset: 31-03-5861GleuwmoFfixu nutritional; endocrine; and metabolic disorders (16 sources)Morbid cxixfvp58-30-6591LuvubvtAgljprm on above:added per 05/13/2023 query response.Other nutritional; endocrine; and metabolic disorders (20 sources)Hypomagnesemia; Translations: [Hypomagnesemia]Onset: 12-29-2023 91-68-8257HqcvqndGnncr nutritional; endocrine; and metabolic disorders (18 sources)Body mass index 30+ - fbyturj87-66-4748HctssyqDbsni screening for suspected conditions (not mental disorders or infectious disease) (20 sources)Raised prostate specific antigen; Translations: [Elevated prostate specific antigen [PSA]]Onset: 37-20-2312FgqchldiPprinamc codes; unclassified (20 sources)Iegkl88-09-6789FibvjinyIcxnbglah and history of mental health and substance abuse codes (10 sources)H/O: Disorder; Translations: [Personal history of nicotine dependence]Onset: 31-93-9162WdvctltoZsioxplcmsl; intervertebral disc disorders; other back problems (7 sources)Lumbosacral spondylosis; Translations: [Spondylosis without myelopathy or radiculopathy, lumbosacral region]95-73-8193JebnihuFdptxbo on above:Problem List clean-up per request of Phys. EHR CmteSpondylosis; intervertebral disc disorders; other back problems (7 sources)Spinal stenosis of lumbar region; Translations: [Spinal stenosis, lumbar region without neurogenic claudication]56-94-8315PuanbkifHvhyjfe on above:Problem List clean-up per request of Phys. EHR CmteUnclassified (20 sources)Patient encounter somnnp25-28-3447Rjwmltgadhty (20 sources)Finding of sensation of okgxypo00-15-7543Scbjblu tract infections (20 sources)Urinary tract infectious disease; Translations: [Urinary tract infection, site not specified]Onset: 60-72-5439Ahmkufvq Results Test NameValueInterpretationReference RangeFacilityLaboratory - Chemistry and Chemistry - challengeOrdered By: Clara Encarnacion on 03-25-4737Ixrntwehe Ql (U) NegativeOhio Valley HospitalGlucose (U) [Mass/Vol]500 mg/dL [facility] HospitalKetones Ql (U)NegativeOhio Valley HospitalpH (U)6.5 [pH][facility] Hospitalpecific gravity (U) [Rel density]1.010[facility] HospitalLaboratory - Specimen informationOrdered By: Clara Encarnacion on 58-05-0629Pdzghakppv (U)cloudyOhio Valley HospitalColor (U)yellowOhio Valley Hospital Laboratory - UrinalysisOrdered By: Clara Encarnacion on 76-64-1250Pkpikaaej esterase Test strip Ql (U)moderateOhio Valley HospitalNitrite Ql (U)Negative [facility] HospitalProtein Ql (U)30mg/dLOhio Valley HospitalNo Panel InformationOrdered By: Clara Encarnacion on 82-03-5837Qbgfdcn Glucose 338Ohio Valley HospitalUrine Occult BloodmoderateOhio Valley HospitalUrine Urobilinogen0.2EU/dLOhio Valley HospitalUrine Cultureon 12-34-1847Uoncwroh identified Cx Nom (U)ORGANISM: Enterobacter cloacae complex (O:ENTCLOCPLX) [place] Count >100,000 Aerobic EMERSON Charge ([id number]) SUSCEPTIBILITY ORGANISM: O:ENTCLOCPLX ANTIBIOTIC INTERPRETATION EMERSON Amikacin S <16 Aztreonam I <4 Cefepime S <2 Ceftazidime I <1 Ceftriaxone I <1 Cefuroxime I <4 Ciprofloxacin S <0.25 Ertapenem S <0.5 Gentamicin S <2 Levofloxacin S <0.5 Meropenem S <1 Meropenem/Vaborbactam S <2 Nitrofurantoin S <32 Piperacillin/Tazobactam I <8 Tetracycline S <4 Tigecycline S <2 Tobramycin S <2 Trimethoprim/Sulfamethoxazole S <0.5 S = SUSCEPTIBLE I = INTERMEDIATE R = RESISTANT BLANK = DATA NOT AVAILABLE, OR DRUG NOT ADVISABLE OR TESTED R* = RESISTANCE DUE TO EXTENDED SPECTRUM BETA-LACTAMASES ESBL = EXTENDED SPECTRUM BETA-LACTAMASE TFG = THYMIDINE-DEPENDENT STRAIN MAGGI = BETA-LACTAMASE POSITIVE IB = INDUCIBLE BETA-LACTAMASE. APPEARS IN PLACE OF 'S' WITH SPECIES KNOWN TO POSSESS INDUCIBLE BETA-LACTAMASES. POTENTIALLY THEY MAY BECOME RESISTANT TO ALL B-LACTAM DRUGS. PERFORMED BY: [facility] [address] [place] [address] PATHOLOGIST TR[employer]PER [employer]IMAL JOCELYN NOEL M.D.[facility] Emergency Physician GroupComment on above: Performed By: #### CUU #### [facility] [address] [place] [address] USAUrine cultureOrdered By: Clara Encarnacion on 04-03-2025 Bacteria identified Cx Nom (U)Enterobacter cloacae complexAbnormalOhio Valley HospitalBasophils Auto (Bld) [#/Vol]Ordered By: Ivania Vale on 83-08-4203Fkosartnj (Bld) [#/Vol]0.1 10 3/uL0.0-0.1FGalion Community HospitalBasophils/100 WBC Auto (Bld)Ordered By: Ivania Vale on 03-20-2025 Basophils/100 WBC (Bld)1.3 %0.2-2.0[facility] HospitalCholesterol in LDL Calc [Mass/Vol]Ordered By: Ivania Vale on 34-01-2684Sslunsgypze in LDL [Mass/Vol]68.2 mg/dLOhio Valley HospitalComment on above:<100 mg/dl WDWCELW450-242 mg/dl NEAR OR ABOVE OPWSIYU003-941 mg/dl BORDERLINE APZS482-637 mg/dl HIGH>190 mg/dl VERY HIGHCholesterol in VLDL Calc [Mass/Vol]Ordered By: Ivania Vale on 89-83-5457Iqlxdmbtjqq in VLDL [Mass/Vol]20.8 mg/dLOhio Valley HospitalEosinophils/100 WBC Auto (Bld)Ordered By: Ivania Vale on 81-00-7070Vjjphvhguai/100 WBC (Bld)2.4 %0.9-7.0[facility] HospitalErythrocyte distribution width Auto (RBC) [Ratio]Ordered By: Ivania Vale on 35-33-8139Thblfxftzbt distribution width (RBC) [Ratio]12.3 %11.0-15.0 [facility] HospitalGlobulin Calc (S) [Mass/Vol]Ordered By: IVANIA VALE on 57-97-7895Rcrzsuxo (S) [Mass/Vol]3.6 g/dLOhio Valley HospitalGlomerular filtration rate (GFR) estimation in non- AmericanOrdered By: IVANIA VALE on 21-60-3757HDG/1.73 sq M.predicted among non-blacks MDRD (S/P/Bld) [Vol rate/Area]57 mL/min/{1.73_m2}Low>=60 mL/min/1.73m [address] [place], [place] [address]Glucose mean value [Mass/volume] in Blood Estimated from glycated hemoglobinOrdered By: Ivania Vale on 66-14-6278Nbvrmhn glucose Estimated from glycated hemoglobin (Bld) [Mass/Vol]171 mg/dLOhio Valley HospitalHematocrit Auto (Bld) [Volume fraction]Ordered By: Ivania Vale on 49-81-7011Iwwsjvfdxe (Bld) [Volume fraction]40.1 %Low42.0-54.0[facility] HospitalHemoglobin A1c percentageOrdered By: Ivania Vale on 03-20-2025 HbA1c (Bld) [Mass fraction]7.6 %High4.5-6.2FGalion Community Hospital Comment on above:ADA RECOMMENDED LIMIT 4.0 - 6.0ADA THERAPEUTIC TARGET < 7.0ACTION SUGGESTED> 7.0Hemoglobin [Mass/volume] in BloodOrdered By: Ivania Vale on 20-47-8025Yfsachcypq (Bld) [Mass/Vol]13.6 g/dLLow14.0-18.0[facility] HospitalLaboratory - Chemistry and Chemistry - challengeOrdered By: IVANIA VALE on 78-57-3853Bkdfmki [Mass/Vol]3.8 g/dL3.4-5.0[facility] HospitalALP [Catalytic activity/Vol]80 U/L39-704HoctosgazOhio Valley HospitalALT [Catalytic activity/Vol]27 U/W27-04IqnsonchnOhio Valley HospitalAST [Catalytic activity/Vol]18 U/D04-34UnwjpmoovOhio Valley HospitalBilirubin [Mass/Vol]1.5 mg/dLHigh0.2-1.0[facility] Calcium [Mass/Vol]8.7 mg/dL8.5-10.1FGalion Community HospitalChloride [Moles/Vol]102 mmol/J86-173TjcehvuqqOhio Valley HospitalCO2 [Moles/Vol]30.4 mmol/L21.0-32.0[facility] HospitalCreatinine [Mass/Vol]1.25 mg/dL 0.70-1.30[facility] HospitalGFR/1.73 sq M.predicted MDRD (S/P/Bld) [Vol rate/Area]mL/min/{1.73_m2}>=60 mL/min/1.73m 2FGalion Community HospitalGlucose [Mass/Vol]213 mg/fQYwfm39-846AzccgysjjOhio Valley Hospital Magnesium [Mass/Vol]0.7 mg/dLCritically low1.8-2.4FGalion Community HospitalComment on above:RESULTS CALLED TO DARREN CASHotassium [Moles/Vol] 4.2 mmol/L3.5-5.1FGalion Community HospitalProtein [Mass/Vol]7.4 g/dL 6.4-8.2FOhioHealth O'Bleness Hospitalodium [Moles/Vol]143 mmol/K996-430 [facility] HospitalUrea nitrogen [Mass/Vol]12.0 mg/dL7.0-18.0 [facility] HospitalUrea nitrogen/Creatinine [Mass ratio]9.6 mg/mg [facility] HospitalLaboratory - Chemistry and Chemistry - challengeOrdered By: Ivania Vale on 59-38-9665Toqakelaavb [Mass/Vol]134 mg/dL <=200[facility] HospitalCholesterol in HDL [Mass/Vol]45 mg/dL40-60 [facility] HospitalComment on above:> or =60 mg/dl - LOW CARDIOVASCULAR RISK<40 mg/dl - HIGH CARDIOVASCULAR RISKTriglyceride [Mass/Vol] 104 mg/dL<=150[facility] HospitalLaboratory - Hematology and Cell countsOrdered By: Ivania Vale on [id number] granulocytes/100 WBC (Bld) 0.4 %0.0-0.5FGalion Community HospitalLeukocytes [#/volume] corrected for nucleated erythrocytes in Blood by Automated counOrdered By: Ivania Vale on [id number] corrected for nucl RBC Auto (Bld) [#/Vol]5.4 10 3/uL4.0-11.0 [facility] HospitalLymphocytes Auto (Bld) [#/Vol]Ordered By: Ivania Vale on 69-99-2948Fdxanxivyxc (Bld) [#/Vol]1.4 10 3/uL1.2-3.8[facility] HospitalLymphocytes/100 WBC Auto (Bld)Ordered By: Ivania Vale on 50-68-3911Vxekbypfjbj/100 WBC (Bld)25.0 %20.5-60.0[facility] Auto (RBC) [Entitic mass]Ordered By: Ivania Vale on 54-81-3002TXT (RBC) [Entitic mass]33.1 pg25.9-34.0[facility] HospitalMCHC Auto (RBC) [Mass/Vol]Ordered By: Ivania Vale on 29-44-4400WHRL (RBC) [Mass/Vol]33.9 g/dL29.9-35.2FGalion Community HospitalMCV Auto (RBC) [Entitic vol] Ordered By: Ivania Vale on 51-44-8817SFJ (RBC) [Entitic vol]97.6 fLHigh 80.0-94.0[facility] HospitalMonocytes Auto (Bld) [#/Vol]Ordered By: Ivania Vale on 80-79-3996Vmudtdvij (Bld) [#/Vol]0.6 10 3/uL0.3-0.8[facility] HospitalMonocytes/100 WBC Auto (Bld)Ordered By: Ivania Patelp on 08-37-4467Xwyljmhty/100 WBC (Bld)11.6 %1.7-12.0[facility] Neutrophils Auto (Bld) [#/Vol]Ordered By: Ivania Vale on 89-10-2515Sskeqqcibyg (Bld) [#/Vol]3.2 10 3/uL1.4-6.5FGalion Community HospitalNeutrophils/100 WBC Auto (Bld)Ordered By: Ivania Vale on 47-11-4345Pjjjkxckzvl/100 WBC (Bld) 59.3 %43.0-75.0[facility] HospitalNo Panel InformationOrdered By: Ivania Vale on 37-79-4379Pziooaryezr # (Auto)0.1 10 3/uL0.0-0.7FGalion Community HospitalImmature Granulocyte # (Auto)0.02 10 3/uL0.00-0.03 [facility] HospitalPlatelet mean volume Auto (Bld) [Entitic vol] Ordered By: Ivania Vale on 85-60-1859Snyfcszj mean volume (Bld) [Entitic vol] 9.7 fL9.5-13.5FGalion Community HospitalPlatelets Auto (Bld) [#/Vol] Ordered By: Ivania Vale on 24-04-6174Ibtpfoite (Bld) [#/Vol]212 10 3/dX330-002 [facility] HospitalRBC Auto (Bld) [#/Vol]Ordered By: Ivania Vale on 34-91-5372FJR (Bld) [#/Vol]4.11 10 6/uLLow4.70-6.10[facility] Mary Hospitalerum or plasma albumin/globulin mass ratioOrdered By: IVANIA VALE on 41-77-0776Xfxtokn/Globulin [Mass ratio]1.1 {ratio}[facility] Hospitalerum or plasma anion gap determinationOrdered By: IVANIA VALE on 88-47-9895Pjafj gap [Moles/Vol]14.8 mmol/LFOhioHealth O'Bleness Hospitalerum or plasma total cholesterol/high density lipoprotein (HDL) cholesterol mass rat Ordered By: Ivania Vale on 07-83-1805Oqsudkfdymk.total/Cholesterol in HDL [Mass ratio]3.0 {ratio}[facility] HospitalComment on above:3.3 - 4.4 LOW RISK4.4 - 7.1 AVERAGE RISK7.1 - 11.0 MODERATE RISK>11.0 HIGH RISKAmbulatory Visit Summaryon 50-29-8973Mtwhkpeqpy Visit SummaryAmbulatory Visit Summary ALICJA REYES :1955 Visit Date:03/19/2025 Ambulatory Visit Instructions Your Diagnosis Elevated PSA Incomplete bladder emptying Hypotonic neurogenic bladder BPH without urinary obstruction PIN (prostatic intraepithelial neoplasia) Your Care Team Attending Physician - EMMY REYNOLDS, Bryant Vogel This Is Your Medications List Contact prescribing physician if questions or concerns Misc Prescription (Misc DME Prescription) amlodipine (amLODIPine 5 mg Tab) atorvastatin (atorvastatin 40 mg Tab) lisinopril (lisinopril 40 mg Tab) magnesium oxide (magnesium oxide 400 mg Tab) metoprolol (metoprolol succinate 25 mg ER Tab) multivitamin (Therapeutic Multiple Vitamin Tab) omeprazole (omeprazole 20 mg Cap-DR) ondansetron (Zofran 4 mg Tab) tamsulosin (tamsulosin 0.4 mg Cap) Procedures Performed Carpal tunnel release (08/30/2024), Decompression of median nerve (08/30/2024), Arthroscopy, back surgery, Colonoscopy, hand and elbow surgery LEFT, Hand tendon repaired, Spinal fusion. Discharge Vitals Temperature (Tympanic) 37.0 ???C Heart Rate (Peripheral) 68 Respiratory Rate 16 Blood Pressure 120/68 Height 174 cm Height 69 in Weight 109.7 kg Weight 241.847 lb BMI 36.23 What to do next Scheduled Follow-Up Appointments Tuesday 8:40 AM EST With: MARINO KEARNS CNP Where: [place] [id number]- Tuesday2025 9:15 AM EST With: Bryant TAO MD Where: [facility] [place] [address] [place] [address]- Tuesday2025 8:00 AM EST With: Where: [facility] [address] [address]- You Need to Schedule the Following Appointments Follow Up with Bryant TAO MD, URL When: Comments: 3 mos w/ PSA F&T Where: [address] [address]- Medications What How Much When Why Instructions Unchanged amlodipine (amLODIPine 5 mg Tab) See instructions TAKE 1 TABLET DAILY Contact prescribingphysician if questions or concerns Unchanged atorvastatin (atorvastatin [...] BS twice daily- will bring equipment to [facility] f/ u to update brand Contact prescribing physician if questions or concerns Unchanged multivitamin (Therapeutic Multiple Vitamin Tab) See instructions Oral Daily Contact prescribing physician if questions or concerns Unchanged omeprazole (omeprazole 20 mg Cap-DR) See instructions TAKE 1 CAPSULE BY MOUTH EVERY DAY Contact prescribing physician if questions or concerns Unchanged ondansetron (Zofran 4 mg Tab) 1 Tablets By Mouth Every 6 hours as needed for Nausea Dysuria BMI 36.0-36.9,adult Former smoker Obesity (BMI 30- 39.9) Contact prescribing physician if questions or concerns [...] Please share your experience with us by (more content not included)...Normal [facility] HospitalUrology Office/Clinic Noteon 46-11-6791Eyrmhsl Office/Clinic NoteUrology Office/Clinic Note Chief Complaint Pt here for follow up HPI Staff 7 m with PSA d/t elevated PSA Failed select MDx 09/03/24, was not unable to void (pt does CIC TID but company did not recommendedusing CIC for select MDx sample) Increased CIC to 3x/day Flomax 0.4 mg qd through PCP UAs & UCx: 11/14/24 - saw PCP d/t dizziness, UA showed small blood and small leuks, 75k E. faecalis, treated empirically with Cipro 500 mg q12hr x 7 days (sensitive) 01/29/25 - saw PCP d/t dysuria and nausea, UA showed trace-intact blood and small leuks, 1k mixed skin, was not treated 03/04/25 - pt was still having UTI sx (frequency and dysuria) at time of nurse visit for blood draw, UA showed moderate blood and large leuks, <10k mixed skin (appears pt was not treated?) PSA: 08/17/24 - 8.1 & 7.4% 09/24/24 - 2.0 & 20% 03/04/25 - 11.3 & 3.5% Pt reports that he self caths 3X daily and is able to empty his bladder Pt reports that his is has appt in April 2025 with nephrology Pt denies pain/burning denies visible blood denies flank pain Pt states that he has seen floating tissue in his urine IPSS: 29 History of Present Illness Tests reviewed: reviewed UA, PSA I have reviewed the previous health record information and history for this patient from Estefania Reddy NP. I have reviewed and verified the staff [...] HPI. Physical Exam Vitals & Measurements T: 37.0 ???C(Tympanic) HR: 68(Peripheral) RR: 16 BP: 120/68 HT: 69 in HT: 174 cm WT: 241.847 lb WT: 109.7 kg BMI: 36.23 General Appearance: alert, no distress, well nourished, well developed male. Assessment/Plan Last seen by AO. 1. Elevated PSA (R97.20: Elevated prostate specific antigen [PSA]) PSA: 06/22/11 - 0.41 11/09/18 - 0.41 01/10/20 - 0.36 02/03/21 - 0.44 07/13/22 - 0.43 04/04/23 - 6.1 01/11/24 - 1.8 & 16.7% --> started having PSAs checked at [facility] 08/07/24 - 8.1 % 7.4% (PSAD 0.31) 09/24/24 - 2.0 & 20.0% 03/04/25 - 11.3 & 3.5% [place] of [place] [facility] [place] A focal area involving the anterior aspect of the R peripheral zoneat the level of the mid gland measuring 5 x 4 mm. No gross or subcapsular extension is seen. PI-RADS 4. Prostate volume 26 ml. S/p TRUS/bx intuitive 09/09/23. Path report neg for malignancy. PIN is present. Was unable to complete Select MDX after last encounter as pt was unable to void on her own, and thecompany does not recommend collecting specimen from CIC so PSA was repeated instead. PSA increased significantly from prior but has been elevated in the past. Percent free is very unfavorable, which is concerning for malignancy. Discussed options including TRUS/bx under local anesthesia vs cluster bx under general anesthesia vs repeating PSA to confirm if elevation is true. Risks/benefits of options discussed. Given prior neg bx recently and hx of fluctuation, recommend repeatingPSA F&T soon. Pt states he has an order for PSA to be done with PCP. No longer wishes to have PSA checked at [facility], will be using [facility]. -Repeat PSA F&T now with PCP's office (new lab) -F/u in 3 mos w/ PSA F&T 2. Incomplete bladder emptying (R33.9: Retention of urine, unspecified) 06/04/23 - [facility] due to chills and dizziness after [...] cath. 06/23/23 - Taught CIC. 07/01/23 - P er message, avg residuals 40 oz, was told [...] bladder distension. Bladder wall thickening and large bladdervolume, consider TALAMANTES. 07/15/23 - Per test results, pt to CIC q4-6hr until total urine output is <500 cc each time he caths. PVR (cc): 07/27/23 - 670 [random] 09/22/23 - 656 [random] S/p Cysto 11/28/23 - Unobstructed prostate, moderate hypertrophy, 3cm long, no median lobe. Severe bladder trabeculations and (more content not included)... [facility] HospitalComment on above:Result Comment: Electronically Signed By: Bryant TAO MD\.br\Date and Time Signed: 03/19/25 10:05 EDT\.br\Electronically Co-Signed By: Alis Velásquez\.br\Date and Time Co-Signed: 03/19/25 10:02 EDTC Urineon 31-73-9586Vggrknlx identified Cx Nom (U)Microbiology PROCEDURE: Urine Culture [R1] SOURCE: U CleanCatch BODY SITE: COLLECTED DATE/TIME: 03/04/2025 11:13 EDT RECEIVED DATE/TIME: 03/04/2025 20:14 EDT START DATE/TIME: 03/04/2025 20:14 EDT FREE TEXT SOURCE: SHIRA WHATLEY, MARINO KEARNS CNP, MARINO Butler FINAL REPORTS Final Report [] Verified Date/Time: 03/06/2025 06:55 EDT <10,000 cfu/ml Mixed skin contaminants Performing Locations R1: This test was performed at: [facility], [address] [place] [address], [facility] , , SjeiurCqtbipTrinity Health System West CampusComment on above:Performed By: #### [id number] #### [address] [address]Gygibttmvud 57-03-2719Mkgqxghro [Mass/Vol]0.5 mg/dLAbnormal 1.3-2.4FHocking Valley Community HospitalComment on above:Result Comment: Critical Result Verified by Repeat Analysis Critical Result S_M.5 Called to and read back by: DR ANDRE at: 03/04/2025 20:42:04 by:MJPerformed By: #### [id number] #### [facility] [address] [place] [id number] Urineon 05-99-6519Flkscdpp identified Cx Nom (U)Microbiology PROCEDURE: Urine Culture [R1] SOURCE: U CleanCatch BODY SITE: COLLECTED DATE/TIME: 01/29/2025 11:35 EDT RECEIVED DATE/TIME: 01/29/2025 16:55 EDT START DATE/TIME: 01/29/2025 16:56 EDT FREE TEXT SOURCE: MARINO KEARNS CNP, CNP, SHELLY A FINAL REPORTS Final Report [] Verified Date/Time: 01/31/2025 09:30 EDT 1,000 cfu/ml Mixed skin contaminants Performing Locations R1: This test was performed at: [facility], [address] [place] [address], [address]- , , ThtwqvRqvesyZanesville City HospitalComment on above:Performed By: #### [id number] #### [facility] [address] [place] [address]Cvkpmlwbwg Visit Summaryon 84-94-2659Gypmxwsosc Visit Summary Ambulatory Visit Summary ALICJA REYES :1955 Visit Date:01/29/2025 Ambulatory Visit Instructions Your Diagnosis Dysuria BMI 36.0-36.9,adult Former smoker Obesity (BMI 30-39.9) Your Care Team Attending Physician - MARINO KEARNS CNP Primary Care Physician - MARINO KEARNS CNP This Is Your Medications List [facility] Prescription ([facility] DME Prescription) amlodipine (amLODIPine 5 mg Tab) [...] AM EDT With: Where: [facility] [address] [address]- Tuesday 8:15 AM EDT With: EMMY REYNOLDS, Bryant Vogel Where: [facility] [address] [place] [address]- Tuesday 8:40 AM EST With: MARINO KEARNS CNP Where: [address] [address]- Tuesday2025 8:00 AM EST With: Where: [address] [address]- Medications What How Much When Instructions Unchanged [...] BS twice daily- will bring equipment to [facility] f/ u to update brand Unchanged [...] signed up for this yet, please contact [employer] at [phone] to get signed up today. Language Information Language assistance services are available as needed. [facility] Medicine Office/Clinic Noteon 40-71-0366Daeria Medicine Office/Clinic NoteHubbard Regional Hospital Medicine Office/Clinic Note Chief Complaint Possible UTI The patient presents with dysuria and associated nausea. HPI Staff Pt presents today due to possible UTI. Pt does have Hx of UTI & NGB. Does CIC 3x/day. Does see [facility] Urology. Onset: Sx started Tuesday Symptoms: burning [...] low magnesium levels, with recent transfusions occurring approximatelyone month ago. He denies any recent exposure to infectious agents, despite experiencing flu-like symptoms. The patient has a history of obesity with a BMI in the range of 30-39.9 and is a former smoker. He has an upcoming appointment with a power project manager, expressing dissatisfaction with previous consultations. Review of [...] medical support in addressing this problem. Your BMIand weight management will be followed at subsequent [...] Medium Risk, 11/15/2012 Saima (more content not included)...[facility] City HospitalComment on above:Result Comment: Electronically Signed By: MARINO KEARNS CNP\.br\Date and Time Signed: 01/29/25 08:08 EDTAmbulatory Visit Summaryon 01-08-2025 Ambulatory Visit SummaryAmbulatory Visit Summary ALICJA REYES :1955 Visit Date:01/08/2025 [...] Cap) [Image Removed: STOP]Stop taking these medications acetaminophen-hydrocodone (acetaminophen-hydrocodone 325 mg-5 mg oral tablet) Procedures Performed [...] AM EDT With: Where: [facility] [address] [address]- Tuesday 8:15 AM EDT With: Bryant TAO MD Where: [facility] [address] [place] [address]- Tuesday 8:40 AM EST With: MARINO KEARNS CNP Where: [address] [address]- Tuesday2025 8:00 AM EST With: Where: [address] [address]- You Need to Schedule the Following Appointments Follow Up with MARINO KEARNS CNP, FAM When: Within 3 months Comments: Diabetes Where: [address] [place] [phone] Business (1) Medications What How Much When Why Instructions Unchanged amlodipine (amLODIPine 5 mg Tab) See instructions TAKE 1 TABLET DAILY Contact prescribingphysician if questions or concerns Unchanged atorvastatin (atorvastatin [...] or concerns What When Comments Stop Taking acetaminophen-hydrocodone (acetaminophen-hydrocodone 325 mg-5 mg (more content not included)...[facility] Medicine Office/Clinic Noteon 43-13-0360Asvnhg Medicine Office/Clinic NoteFafoxborough state hospital Medicine Office/Clinic Note Chief Complaint The patient [...] levels, with a follow-up test due during thisvisit. The patient reports swelling in the ankles, [...] glucose control. Ordered: HgbA1c Lab Specimen Collect [id number] 2. Low magnesium level (R79.0: Abnormal level of blood mineral) - Awaiting magnesium levels Ordered: Lab Specimen Collect [id number] Magnesium Level 3. BMI 37.0-37.9, adult (Z68.37: Body mass index [BMI] 37.0-37.9, adult) BMI 37.19 Morbid (severe) obesity due to excess calories (E66.01: Morbid (severe) obesity due to excess calories) - Discussed the impact of alcohol consumption on weight and overall health. Follow-up With When Contact Information MARINO KEARNS CNP, FAM Within 3 months [address] [place] [address] Business (1) Additional Instructions: Diabetes Patient Education Type [...] Medications Aleve, 220 m (more content not included)...NormalT[facility]carawas Hospital Comment on above:Result Comment: Electronically Signed By: MARINO KEARNS CNP\.br\Date and Time Signed: 01/08/25 08:28 FKWBulL7iad 81-14-4199ZyM6t (Bld) [Mass fraction]7.7 %High<=5.9Tuscarawas HospitalComment on above: Performed By: #### [id number] #### [facility] [address] [place] [id number] Urineon 40-06-6725Anomdfan identified Cx Nom (U)Microbiology PROCEDURE: Urine Culture [R1] SOURCE: U CleanCatch [...] or tested, I=Intermediate, ESBL=Extended spectrum beta-lactamase, R=Resistant, TFG=Thymidine-dependent strain, MAGGI=Beta-lactamase positive, EMERSON=mcg/m;(mg/L), S*=Predicted susceptible interp, R*=Predicted resistant interp Entfaeca Antibiotic EMERSON Dilutn EMERSON Interp Ampicillin <=2 S Ciprofloxacin <=1 S Daptomycin <=1 S Levofloxacin 2 S Linezolid <=2 S Nitrofurantoin <=32 S Penicillin 2 S Tetracycline >8 R Vancomycin 1 S Performing Locations R1: This test was performed at: [facility], [address] [place] [address], [address]- , , HvupumXfivptTrinity Health System West CampusComment on above:Performed By: #### [id number] #### [facility] [address] [place] [address]Axfqtrfpyv Visit Summaryon 78-58-6755Hpkndvcpwa Visit Summary Ambulatory Visit Summary ALICJA REYES :1955 Visit Date:11/14/2024 Ambulatory Visit Instructions Your Diagnosis Dizziness Microhematuria Tests Performed Urine Culture -- Results Pending -- Please visit your patient portal for your results or contact your primary care physician. Your Care Team Attending Physician - SHIRA BEER STILL RUNNER COMPOUNDER, MARINO A Primary Care Physician - Nancy Grace MD This Is Your Medications List Misc Prescription ([facility] DME Prescription) acetaminophen-hydrocodone (acetaminophen-hydrocodone 325 mg-5 mg oral tablet) amlodipine (amLODIPine [...] AM EDT With: Nancy Grace MD Where: [facility] [address] [address]- Tuesday 8:00 AM EDT With: Where: [facility] [address] [place] [address]- Tuesday 8:15 AM EDT With: Bryant TAO MD Where: [facility] [address] [place] [address]- Tuesday2025 8:00 AM EST With: Where: [address] [address]- Medications What How Much When Why Instructions New ciprofloxacin (Cipro 500 mg Tab) 1 Tablets By Mouth Every 12 hours Dizziness Microhematuria Duration: 7 Days Pickup at [facility]/pharmacy #[id number] Unchanged acetaminophen-hydrocodone (acetaminophen-hydrocodone 325 mg-5 mg oral tablet) 12 tab(s), [...] BS twice daily- will bring equipment to [facility] f/ u to update brand Unchanged [...] a day (in the evening) Pharmacy Information [facility]/pharmacy #[id number]: [address] [place], [place] [phone] Allergies CeleBREX (Anxiety, Unknown) Problems Ongoing - [...] Incomplete bladder emptying Ki (more content not included)...[facility] Medicine Office/Clinic Noteon 59-60-7345Bkhywf Medicine Office/Clinic NoteFami Medicine Office/Clinic Note Chief Complaint Refills for mag ox, dizziness started about 3 days ago. Woke him up out of his sleep last night, hefelt like he was spinning. The patient presents [...] # 14 tab(s), Refills(s) 0, Pharmacy: [facility]/pharmacy #[id number], 174, cm, 11/14/24 10:26:00 EDT, Height/Length Dosing, 112.9, kg, 11/14/24 10:26:00 EDT, Weight Dosing Urnls Dip Stick Auto w/o Microscopy POC [address] Microhematuria (R31.29: Other microscopic hematuria) - POC U/A shows leukocytes and blood - Urine culture pending - Start Ciprofloxacin - Provider to call with urine culture results Ordered: ciprofloxacin, 500 mg = 1 tab(s), Oral, q12hr, X 7 day(s), # 14 tab(s), Refills(s) 0, Pharmacy: [facility]/pharmacy #[id number], 174, cm, 11/14/24 10:26:00 EDT, Height/Length Dosing, 112.9, kg, 11/14/24 10:26:00 EDT, Weight Dosing Urine Culture Orders: magnesium oxide, 400 mg = 1 tab(s), Oral, TID, 90 EA, 0 Refill(s), TAKE 1 TABLET BY MOUTH THREE TIMES A DAY, # 90 tab(s), Refills(s) 0, Pharmacy: [facility]/pharmacy #[id number], 174, cm, 11/14/24 10:26:00 EDT, Height/Length [...] LEFT, Hand tendon repaired, Spinal fusion. Medications acetaminophen-hydrocodone 325 mg-5 mg oral tablet, Not taking Aleve, 220 mg, Oral, q12hr amLODIPine 5 mg Tab, See Instructions atorvastatin 40 mg Tab, See Instructions Cipro 500 mg Tab, 500 mg= 1 tab(s), Oral, q12hr Glucophage XR 500 mg Tab-ER, 1000 mg= 2 tab(s (more content not included)... [facility] HospitalComment on above:Result Comment: Electronically Signed By: MARINO KEARNS CNP\.br\Date and Time Signed: 11/14/24 11:08 EDT Ambulatory Visit Summaryon 01-43-2970Tnuzpsvqpe Visit SummaryAmbulatory Visit Summary ALICJA REYES Bharathi :1955 Visit Date:10/08/2024 Ambulatory Visit Instructions Your [...] EDT With: Ruiz REYNOLDS, Nancy Thompson Where: [address] [address]- Tuesday 8:00 AM EDT With: Where: [facility] [address] [place] [address]- Tuesday 8:15 AM EDT With: Bryant TAO MD Where: [facility] [address] [address]- Tuesday2025 8:00 AM EST With: Where: [address] [id number]- You Need to Complete the Following Magnesium [...] BS twice daily- will bring equipment to [facility] f/ u to update brand Unchanged [...] depressive disorder, recurrent, m (more content not included)...Normal [facility]as HospitalBMPon 62-35-9967IQ1 [Moles/Vol]24 mmol/XSxxqvb88-36 [facility] HospitalComment on above:Performed By: #### [id number] #### [facility] [address], [place] [address]Apfzn gap [Moles/Vol]14 mmol/LNormal6-16T[facility]awas HospitalComment on above:Performed By: #### [id number] #### [facility] [address], [place] [address]Zcgmwju [Mass/Vol]8.5 mg/dLLow8.9-11.1FHocking Valley Community HospitalComment on above:Performed By: #### [id number] #### [facility] [address], [place] [address]Wkkgnrve [Moles/Vol]103 mmol/MKschqf594-856GtyreeTuscarawas HospitalComment on above:Performed By: #### [id number] #### [facility] [address], [place] [address]Rksmhvcyca [Mass/Vol]1.4 mg/dLHigh0.5-1.3FHocking Valley Community HospitalComment on above:Performed By: #### [id number] #### [facility] [address], [place] [address]Vwlxhzu [Mass/Vol]248 mg/kFLgxk68-965TkaoywTuscarawas HospitalComment on above:Performed By: #### [id number] #### [facility] [address], [place] [address]Hjlefbbsq [Moles/Vol]4.5 mmol/LNormal3.5-5.3FHocking Valley Community HospitalComment on above:Performed By: #### [id number] #### [facility] [address], [place] [address]Mycpwq [Moles/Vol]136 mmol/GVyfrdw407-669GftqvrTuscarawas HospitalComment on above:Performed By: #### [id number] #### [facility] [address], [place] [address]Pytv nitrogen [Mass/Vol]16 mg/dLNormal5-21T[facility]carawas HospitalComment on above:Performed By: #### [id number] #### [facility] [address], [place] [address]Rpcl nitrogen/Creatinine [Mass ratio]11 No RssdoMyrpdw92-86 [facility] HospitalComment on above:Performed By: #### [id number] #### [facility] [address], [place] [address]GDMMLXIRRGfzadzs By: SYSTEM SYSTEM on 94-92-2335Tfqujewqx [Mass/Vol]0.9 mg/dLInvalid Interpretation Code1.3 - 2.4 mg/dLRemisol ChemComment on above:Result Comment: Critical Result Verified by Repeat Analysis Critical Result S_M.9 Called to and read back by: DR. ANDRE at: 10/08/2024 19:50:28 by:JSAnion gap [Moles/Vol]14 mmol/LNormal6 - 16 mEq/LRemisol Chem Calcium [Mass/Vol]8.5 mg/dLLow8.9 - 11.1 mg/dLRemisol ChemChloride [Moles/Vol] 103 mmol/GDrmcmd889 - 111 mmol/LRemisol ChemCreatinine [Mass/Vol]1.4 mg/dLHigh 0.5 - 1.3 mg/dLRemisol NlyjiTFC42 mL/min/1.73 m2Low>=59mL/min/1.73 k9Uscohwo ChemGlucose [Mass/Vol]248 mg/sQIryt41 - 199 mg/dLRemisol ChemPotassium [Moles/Vol]4.5 mmol/LNormal3.5 - 5.3 mmol/LRemisol ChemSodium [Moles/Vol]136 mmol/LZfhdol540 - 145 mmol/LRemisol ChemUrea nitrogen [Mass/Vol]16 mg/dLNormal5 - 21 mg/dLRemisol ChemUrea nitrogen/Creatinine [Mass ratio]11 mg/mwUlhlgw79 - 20 Remisol ChemCHEMISTRYOrdered By: Ruthann Mohan on 10-28-6545WJ8 [Moles/Vol] 24 mmol/JQwdppr96 - 31 mmol/LFTMC Chem SCHEMISTRYOrdered By: Irma Irwin on 29-67-5011HfM1s (Bld) [Mass fraction]8.7 %High<=5.9%[facility] ChemAutoSSFamily Medicine Office/Clinic Noteon 04-44-7009Znzfag Medicine Office/Clinic NoteHubbard Regional Hospital Medicine Office/Clinic Note Chief Complaint 3m follow up Concern about recurrent hypomagnesemia episodes and recent magnesium levels HPI Staff 3m follow up Started on semaglutide @ [facility] for diabetes. Pt states he did not get. Too expensive. Magnesium levels drawn @ [facility]. Results were critical low. Pt advised to [...] level of consciousness appropriate for age, CN II- XII intact, motor strength equal & normal bilaterally, [...] nicotine dependence) Please con (more content not included)...Normal[facility] Comment on above:Result Comment: Electronically Signed By: Ruiz REYNOLDS, Nancy Thompson\.br\Date and Time Signed: 10/08/24 08:19 VWKWefI6lgn 99-18-0461UgB7w (Bld) [Mass fraction]8.7 %High<=5.9Tuscarawas HospitalComment on above: Performed By: #### [id number] #### [facility] [address], [place] [address]Fhtegnzmhvf 57-49-5383Ggvjfdphj [Mass/Vol]0.9 mg/dLAbnormal 1.3-2.4FHocking Valley Community HospitalComment on above:Result Comment: Critical Result Verified by Repeat Analysis Critical Result S_M.9 Called to and read back by: DR. ANDRE at: 10/08/2024 19:50:28 by:ZARAPerformed By: #### [id number] #### [facility] [address], [place] [address]vASPub 33-97-4038aQWM16 mL/min/1.73 m2Low>=59Tuscarawas HospitalComment on above:Performed By: #### [id number] #### [facility] [address], [place] [address]Elrtpjomll Visit Summaryon 45-94-1281Gvzlhjbdcr Visit Summary Ambulatory Visit Summary ERIC ALICJA Garvin :1955 Visit Date:09/24/2024 Ambulatory Visit Instructions Your [...] AM EDT With: Nancy Grace MD Where: [address] [address]- Tuesday 8:15 AM EDT With: Nancy Grace MD Where: [address] [id number]- Tuesday2025 8:00 AM EST With: Where: [address] [address]- Medications What How Much When Why Instructions [...] 1 Tablets By Mouth Every day Unchanged [facility] Prescription ([facility] DME Prescription) 'Number 1' Glucometer and test [...] you for choosing us for your care. [facility] City HospitalCHEMISTRYOrdered By: SYSTEM SYSTEM on 05-21-3415Frye PSA [Mass/Vol]0.4 ng/mLInvalid Interpretation Code Remisol ChemComment on above:Interpretive Data: The concentration of free PSA and total PSA determined with assays from different manufacturers can vary due to differences in assay methods and specificity. Values obtained with different bacteriologist dairy's assays cannot be used interchangeably. The methodology used to obtain this result was chemiluminescence using [employer] [place]'s Access Hybritech PSA reagent and Access Hybritech free PSA reagent.Free PSA/Total PSA [Mass fraction]20.0 %Low>=25.0%Remisol ChemProstate specific Ag [Mass/Vol]2.0 ng/mLNormal0.1 - 3.5 ng/mLRemisol ChemComment on above:Interpretive Data: The concentration of PSA determined by different manufacturers can vary due to di fferences in assay methods and reagent specificity. Values obtained from different assay methods cannot be used interchangeably. The methodology used for this result was chemiluminescence using Ephraim [place]'s Access Hybritech PSA reagent.Ambulatory Visit Summaryon 49-35-1970Bwqthruldj Visit SummaryAmbulatory Visit Summary ALICJA REYES :1955 Visit Date:09/03/2024 Ambulatory Visit Instructions Your Care Team Attending Physician - RAMANDEEP PORTER PA-C Primary Care Physician - Nancy Grace MD This Is Your Medications List [facility] Prescription ([facility] DME Prescription) amlodipine (amLODIPine 5 mg Tab) [...] AM EDT With: Nancy Grace MD Where: [facility] [address] [address]- Tuesday 8:15 AM EDT With: Ruiz REYNOLDS, Nancy Thompson Where: [address] [phone]- Tuesday2025 8:00 AM EST With: Where: [address] [address]- Medications What How Much When Why Instructions [...] Tablets By Mouth Every day Unchanged [facility] ([facility] DME Prescription) 'Number 1' Glucometer and test strips testing BS twice daily- will bring equipment to [facility] f/ u to update brand Unchanged [...] you for choosing us for your care. NormalFormerly [facility] Countyer Grace Medical CenterCHEMISTRYOrdered By: SYSTEM SYSTEM on 79-68-2836Xodujymov [Mass/Vol]0.6 mg/dLInvalid Interpretation Code1.3 - 2.4 mg/dLRemisol ChemComment on above:Result Comment: Critical Result Verified by Repeat Analysis Critical Result S_M.6 Called to and read back by: DR. NANCY GRACE at: 08/22/2024 18:46:44 by:Carlos Enriqueesiumon 30-35-0783Fijpksled [Mass/Vol]0.6 mg/dL Abnormal1.3-2.4Fisher Grace Medical CenterComment on above:Result Comment: Critical Result Verified by Repeat Analysis Critical Result S_M.6 Called to and read back by: DR. NANCY GRACE at: 08/22/2024 18:46:44 by:Rangelformed By: #### [id number] #### [facility] [address], [place] [address]Bxjwkvgipd Visit Summaryon 00-76-0756Qvpaylegdr Visit Summary Ambulatory Visit Summary ERICALICJA Bharathi :1955 Visit Date:08/21/2024 Ambulatory Visit Instructions Your Diagnosis Elevated PSA Incomplete bladder emptying Hypotonic neurogenic bladder BPH without urinary obstruction PIN (prostatic intraepithelial neoplasia) Your Care Team Attending Physician - TOSHIA Reddy APRN, [place] X Primary Care Physician - Nancy Grace [...] RAMANDEEP PORTER PA-C Where: [facility] [address] [place] [address]- Tuesday 8:00 AM EDT With: Nancy Grace MD Where: [address] [phone]- Tuesday 8:15 AM EDT With: Nancy Grace MD Where: [address] [address]- Tuesday2025 8:00 AM EST With: Where: [address] [place] [address]- You Need to Schedule the Following Appointments Follow Up with TOSHIA Reddy APRN, Estefania Santiago, NATALIO, ALHAJI When: Where: Medications What How Much When Why Instructions Unchanged tamsulosin (tamsulosin 0.4 mg Cap) 1 Capsules By Mouth Once a day (in the evening) Unchanged amlodipine (amLODIPine 5 mg Tab) See instructions TAKE 1 TABLET DAILY Contact prescribingphysician if questions or concerns Unchanged atorvastatin (atorvastatin [...] BS twice daily- will bring equipment to [facility] f/ u to update brand Contact prescribing [...] 37.0-37.9, adult BPH w (more content not included)...NormalTuscarawas HospitalUrology Office/Clinic Noteon 51-63-0062Hyxmchc Office/Clinic NoteUrology Office/Clinic Note Chief Complaint 6 month with [...] 7.4% (PSAD 0.31) MRI of prostate [place] [facility] [place] A focal area involving the anterior aspect of the R peripheral zoneat the level of the mid gland measuring [...] (R33.9: Retention of urine, unspecified) 06/04/23 - [facility] due to chills and dizziness [...] bladder distension. Bladder wall thickening and large bladdervolume, consider TALAMANTES. 07/15/23 - Per test results, [...] (N40.0: Benign prostatic hyperplasia without lower urinary tractsymptoms) MRI of prostate 07/21/23 [facility] [place] Prostate volume 26 cc. Grossly distended urinary bladder with partially visualized bilateral hydroureter. TALAMANTES is suspected and fol (more content not included)...NormalTuscarawas HospitalComment on above:Result Comment: Electronically Signed By: TOSHIA Reddy APRN, [place] X\.br\Date and Time Signed: 08/21/24 10:00 EDT\.br\Electronically Co-Signed By: Analilia Espino\.br\Date and Time Co-Signed: 08/21/24 09:41 EDTCHEMISTRYOrdered By: SYSTEM SYSTEM on 73-07-8877Slhe PSA [Mass/Vol]0.6 ng/mLInvalid Interpretation CodeRemisol ChemComment on above:Interpretive Data: The concentration of free PSA and total PSA determined with assays from different manufacturers can vary due to differences in assay methods and specificity. Values obtained with different bacteriologist dairy's assays cannot be used interchangeably. The methodology used to obtain this result was chemiluminescence using [employer]elo's Access Hybritech PSA reagent and Access Hybritech free PSA reagent.Free PSA/Total PSA [Mass fraction]7.4 %Low >=25.0%Remisol ChemProstate specific Ag [Mass/Vol]8.1 ng/mLHigh0.1 - 3.5 ng/mL Remisol ChemComment on above:Interpretive Data: The concentration of PSA determined by different manufacturers can vary due to differences in assay methods and reagent specificity. Values obtained from different assay methods cannot be used interchangeably. The methodology used for this result was chemiluminescence using [employer]'s Access Hybritech PSA reagent.BASIC METABOLIC PANLon 61-50-0760Ynlmx gap [Moles/Vol]12 mmol/LNormal5-15ProShannon Medical Center SouthComment on above:Performed By: #### BMP #### [facility] ([id number]) [address], [address] [place], [place] [address]Igawtrs [Mass/Vol]9.3 mg/dLNormal8.5-10.5PSumma Health Akron CampusComment on above:Performed By: #### BMP #### [facility] ([id number]) [address], [address] [place], [place] [address]Nogcqsem [Moles/Vol]100 mmol/MMlzvcc79-292TdwVjdglbShannon Medical Center SouthComment on above:Performed By: #### BMP #### [facility] ([id number]) [address], [address] [place], [place] [address]CL7 [Moles/Vol]24 mmol/PVlodiu23-04GsqMlwravSumma Health Akron Campus Comment on above:Performed By: #### BMP #### [facility] ([id number]) [address], [address] [place], [place] [address]Dirruiqwwi [Mass/Vol]1.35 mg/dLHigh0.60-1.30ProShannon Medical Center SouthComment on above:Result Comment: METHOD TRACEABLE TO IDMS STANDARD Performed By: #### BMP #### [facility] ([id number]) [address], [address] [place] [address]AKJ/1.73 sq M.predicted among non-blacks MDRD (S/P/Bld) [Vol rate/Area]56 mL/min/{1.73_m2}Low>59ProShannon Medical Center SouthComment on above: Result Comment: Reported eGFR is based on the CKD-EPI 2020 equation that does not use a race coefficient.Performed By: #### BMP #### [facility] ([id number]) [address], [address] [place], [place] [address]Ykhtflv [Mass/Vol]204 mg/aJChjw15-85MjeRyijjjShannon Medical Center South Comment on above:Performed By: #### BMP #### [facility] ([id number]) [address], [address] [place], [place] [address]Yonnoxsoo [Moles/Vol]4.3 mmol/LNormal3.5-5.0ProShannon Medical Center SouthComment on above:Performed By: #### BMP #### [facility] ([id number]) [address], [address] [place], [place] [address]Gjiboz [Moles/Vol]136 mmol/VXnwlik467-592WfmBepvgz [facility]remont HospitalComment on above:Performed By: #### BMP #### [facility] ([id number]) [address], [address] [place], [place] [address]Moym nitrogen [Mass/Vol]18 mg/dLNormal5-27ProShannon Medical Center SouthComment on above:Performed By: #### BMP #### [facility] ([id number]) [address], [address] [place], [place] [address]Tuosh metabolic 1998 panelon 04-64-3123Bteac gap [Moles/Vol]12 mmol/L5 - 15 mmol/LNOMS HealthcareCalcium [Mass/Vol]9.3 mg/dL8.5 - 10.5 mg/dL NOMS HealthcareChloride [Moles/Vol]100 mmol/L98 - 109 mmol/LNOMS HealthcareCO2 [Moles/Vol]24 mmol/L22 - 32 mmol/LNOMS HealthcareCreatine [Mass/Vol]1.35 mg/dL High0.60 - 1.30 mg/dLNOOR HealthcareComment on above:METHOD TRACEABLE TO IDMS STANDARDGFR/1.73 sq M.predicted among non-blacks MDRD (S/P/Bld) [Vol rate/Area] 56 mL/min/{1.73_m2}Low- PINFNOMS HealthcareComment on above: Reported eGFR is based on the CKD-EPI 2020 equation that does not use a race coefficient. PERFORMED AT [facility] [address],[place] [address] Glucose [Mass/Vol]204 mg/hALssu13 - 99 mg/dLNOOR HealthcareInterpretation and review of laboratory resultsAbnormalNOMS HealthcarePotassium [Moles/Vol]4.3 mmol/L3.5 - 5.0 mmol/LNOMS HealthcareSodium [Moles/Vol]136 mmol/L134 - 146 mmol/LNOMS HealthcareUrea nitrogen [Mass/Vol]18 mg/dL5 - 27 mg/dLNOOR Healthcare NOMS HealthcareFami Medicine Office/Clinic Noteon 18-22-3765Ubkave Medicine Office/Clinic NoteFami Medicine Office/Clinic Note Chief Complaint Subsequent Medicare [...] Precautions for MERS/COVID-19 : N/A Radha Tao 07/09/2024 8:12 EST Medicare/Medicaid Summary Chief Complaint [...] Yes Organ Donation Consent : Yes Radha Toa - 07/09/2024 8:12 EST Procedures / Surgeries [...] 2005 (Last Updated: 05/18/2024 12:51:20 UTC by Gil Conley) Former smoker, quit more than 30 days ago Tobacco Use:. Never Smokeless Tobacco Use:. Cigarettes, Stopped age 50 Years. Household tobacco concerns: No. Yes Comments: 07/09/2024 8:22 - Radha Tao: former smoker. stopped at age 50. (Last Updated: 07/09/2024 08:22:43 EST by Radha Tao) Substance Abuse: Denies Substance Abuse Never Comments: 07/09/2024 8:22 - Radha aTo: denies use. (Last Updated: 07/09/2024 08:22:58 EST [...] Yes Primary Pain Lo (more content not included)...[facility] Comment on above:Result Comment: Electronically Signed By: Nancy Grace MD\.br\Date and Time Signed: 08/08/24 10:11 EST\.br\Electronically Co-Signed By: Radha Tao\.br\Date and Time Co-Signed: 07/09/24 09:23 ESTAmbulatory Visit Summaryon [id number] Visit SummaryAmbulatory Visit Summary ALICJA REYES :1955 Visit Date:07/09/2024 [...] APRN, Estefania Santiago Where: [facility] [address] [address]- Tuesday 8:15 AM EDT With: Nancy Grace MD Where: [address] [phone]- Tuesday 8:15 AM EDT With: Nancy Grace MD Where: [address] [phone]- Tuesday2025 8:00 AM EST With: Where: [address] [phone]- Medications What How Much When Why Instructions [...] BS twice daily- will bring equipment to [facility] f/ u to update brand Unchanged [...] pain or discomfort t (more content not included)...Normal [facility] HospitalAmbulatory Visit SummaryAmbulatory Visit Summary ERICALICJA Bharathi :1955 Visit Date:07/16/2024 Ambulatory Visit Instructions Your [...] APRN, Aurora X Where: [facility] [address] [address]- Tuesday 8:15 AM EDT With: Nancy Grace MD Where: [address] [phone]- Tuesday 8:15 AM EDT With: Nancy Grace MD Where: [address] [address]- Tuesday2025 8:00 AM EST With: Where: [address] [address]- Medications What How Much When Why Instructions New semaglutide (Ozempic 2 mg/ 3 mL (0.25 mg or 0.5 mg dose) subcutaneous solution) 0.25 Milligram Subcutaneous Every week Type 2 diabetes mellitus with hypercholesterolemia BMI 37.0-37.9, adult Obesity (BMI 30-39.9) Former smoker Hypomagnesemia Pickup at [facility]/pharmacy #[id number] Unchanged amlodipine (amLODIPine 5 mg Tab) See [...] a day (in the evening) Pharmacy Information [facility]/pharmacy #[id number]: [address] [place], [place] [phone] Allergies CeleBREX (Anxiety, Unknown) Problems Ongoing - [...] Patient Survey You ma (more content not included)...[facility] HospitalCHEMISTRY Ordered By: SYSTEM SYSTEM on 13-45-5182Qmgngfhoq [Mass/Vol]0.5 mg/dLInvalid Interpretation Code1.3 - 2.4 mg/dLRemisol ChemComment on above:Result Comment: Critical Result Verified by Previous Result Critical Result S_M.5 Called to and read back by: NANCY GRACE at: 07/16/2024 18:21:49 by:[facility] Medicine Office/Clinic Noteon 69-07-7467Jqqcvq Medicine Office/Clinic NoteHubbard Regional Hospital [facility] Office/Clinic Note Chief Complaint Discuss A1C results The patient presents for a medication review and management of Type 2 diabetes mellitus. [facility] Staff Pt presents today to discuss recent [...] consistently taking metformin, suggesting that dietary indiscretions duringthe recent holiday season may have contributed to this elevation. Historically, the patient's Type 2 diabetes has been complicated by hypercholesterolemia. The patient expresses concerns regarding medication costs due to a fixed income. Currently, magnesium levels are under review due to previouslyundetected hypomagnesemia. The patient has been managing this with jxzl-tvm-lvtnugi magnesium supplements. He denies any symptoms of [...] level of consciousness appropriate for age, CN II- XII intact, motor strength equal & normal bilaterally, speech normal Abdomen: Soft, Non-tender, Non-distended, + Bowel sounds Assessment/Plan 1. Type 2 diabetes mellitus with hypercholesterolemia (E11.69: Type 2 diabetes mellitus with other specified complication) Introduced newer antidiabetic medications, with consideration given to the patient's fixed income and available subsidies. Suggested medications include Ozempic and Trulicity, with a secondary optionas Jardiance. A plan is in place to fill necessary forms for cost assistance where applicable. Ordered: semaglutide, 0.25 mg, SubCutaneous, qWeek, # 3 mL, Refills(s) 0, Pharmacy: [facility]/pharmacy #[id number], 175.3, cm, 07/16/24 8:18:00 EST, Height/Length Dosing, 114, kg, 07/16/24 8:18:00 EST, Weight Dosing Body Mass Index (BMI) documented 3008F Current tobacco non-user 1036F Depression Screening Negative 3352F Influenza immunization status assessed 1030F Lab Specimen Collect 10531 Magnesium Level Medication list documented in medical [...] qWeek, # 3 mL, Refills(s) 0, Pharmacy: [facility]/pharmacy #[id number], 175.3, cm, 07/16/24 8:18:00 EST, Height/Length Dosing, 114, kg, 07/16/24 8:18:00 EST, Weight Dosing Magnesium Level 3. Obesity (BMI 30-39.9) (E66.9: Obesity, unspecified) Encouraged dietary modifications and physical activity. Consideration for medications that could provide weight loss benefits inclusive to their primary use, such as Ozempic. Ordered: semaglutide, 0.25 mg, SubCutaneous, qWeek, # 3 mL, Refills(s) 0, Pharmacy: [facility]/pharmacy #[id number], 175.3, cm, 07/16/24 8:18:00 EST, Height/Length Dosing, 114, kg, 07/16/24 8:18:00 EST, Weight Dosing Magnesium Level 4. Former smoker (Z87.891: Personal history of nicotine dependence) Reinforced smoking cessation and its benefits on long-term health outcomes. Ordered: semaglutide, 0.25 mg, SubCutaneous, qWeek, # 3 mL, Refills(s) 0, Pharmacy: [facility]/pharmacy #[id number], 175.3, cm, 07/16/24 8:18:00 EST, Height/Length Dosing, 114, kg, 07/16/24 8:18:00 EST, Weight Dosing Magnesium Level 5. Hypomagnesemia (E83.42: Hypomagnesemia) Blood sample required to reassess serum magnesium levels. Depending on results, magnesium supplementation may be adjusted. Ordered: sema (more content not included)...NormalTuscarawas HospitalComment on above:Result Comment: Electronically Signed By: Ruiz REYNOLDS, Nancy Cordoba.br\Date and Time Signed: 07/16/24 08:57 ESTMagnesiumon 90-34-0266Fxqifsuge [Mass/Vol]0.5 mg/dLAbnormal1.3-2.4Fisher Grace Medical CenterComment on above:Result Comment: Critical Result Verified by Previous Result Critical Result S_M.5 Called to and read back by: NANCY GRACE at: 07/16/2024 18:21:49 by:KENAPerformed By: #### [id number] #### [facility] [address], [place] [address]Lxx-Mkhnm Planningon 68-98-3034Ftn-Visit PlanningPre-Visit Planning From: Valarie Solis To: Ruiz REYNOLDS, Nancy Thompson; Sent: 07/06/2024 11:24:03 EST Subject: Pre-Visit Planning Due Date/Time: 07/06/2024 11:24:00 EST Caller Name: ALICJA REYES; Caller Number: Sana , Nicole Fl Dr. Grace. During a pre-visit planning chart review, I noted the following documentation in the medical record: Current Problem List: Alcohol abuse uncomplicated, Hypokalemia, Hypomagnesemia, Major depressive disorder recurrent moderate, HTN, and Tachycardia. Current Medication List: amlodipine, lisinopril, magnesium oxide, metoprolol, and potassium chloride. 07/25/2023 MWV: AUDIT Score =5. 12/29/2023 [facility] Nephrology Consult Note: Alcoholism: Discussed with him stopping his alcohol use. He states that he would rather than stop drinking alcohol. He currently drinks 6-10 beers per day. Consult case management for rehabilitation. CIWA protocol. 01/05/2024 Office Visit Note: HPI- Still [...] feel free to contact me at extension [phone]. Thank you! Valarie Solis LPN Clinical Licensed Direct Entry Midwife [address] [address] Extension: [phone] [email or web address] From: Nancy Grace MD To: Valarie Solis; Sent: 07/09/2024 07:51:01 EST Subject: RE: Pre-Visit Planning Caller Name: ALICJA REYES; Caller Number: H , M His alcohol abuse is complicated for electrolyte abnormalities and likely Neuropathy. I do not knowhow to code that. From: Valarie Solis To: [...] ALICJA REYES; Caller Number: H , M Yes for both. He does not like to admit this is the cause, I think I discussed this with him at last visit.[facility] HospitalAmbulatory Visit Summaryon 44-06-9650Ozyyvktuir Visit SummaryAmbulatory Visit Summary ALICJA REYES :1955 Visit Date:07/09/2024 [...] APRN, Aurora X Where: [facility] [address] [place] [address]- Tuesday 8:15 AM EDT With: Nancy Grace MD Where: [address] [address]- Tuesday 8:15 AM EDT With: Nancy Grace MD Where: [place] [address] [place] [address]- Medications What How Much When Why Instructions [...] BS twice daily- will bring equipment to [facility] f/ u to update brand Unchanged [...] you for choosing us for your care. NormalTuscarawas HospitalCBC w/ Auto Diffon 07-09-2024 Basophils/100 WBC (Bld)0.7 %Normal0.0-2.0Tuscarawas HospitalComment on above:Performed By: #### [id number] #### [facility] [address] [place] [address]Trbewxvgi/Leukocytes Auto (Bld) [Pure # fraction]0.0 E9/LNormal 0.0-0.2FHocking Valley Community HospitalComment on above:Performed By: #### [id number] #### [facility] [address] [place] [address]Nafbxhloprt (Bld) [#/Vol]0.2 E9/LNormal0.0-0.5FHocking Valley Community HospitalComment on above:Performed By: #### [id number] #### [facility] [address] [place] [address]Cpwwjvphctk/100 WBC (Bld)3.3 %Normal0.0-8.0Tuscarawas HospitalComment on above:Performed By: #### [id number] #### [facility] [address] [place] [address]Rctbtgrznaa distribution width (RBC) [Ratio]12.9 %Normal 10.9-14.2FHocking Valley Community HospitalComment on above:Performed By: #### [id number] #### [facility] [address] [place] [address]Yuhrmaotvf (Bld) [Volume fraction]39.3 %Fdxxcj93.7-49.0Tuscarawas HospitalComment on above:Performed By: #### [id number] #### [facility] [address] [place] [address]Pweyhbwqfm (Bld) [Mass/Vol]13.3 g/dLLow13.5-17.5FHocking Valley Community HospitalComment on above:Performed By: #### [id number] #### [facility] [address] [place] [address]Sqgcmgotwoq (Bld) [#/Vol]1.4 E9/LNormal1.0-4.0Tuscarawas HospitalComment on above:Performed By: #### [id number] #### [facility] [address], [place] [address]Qsxfljlsvju/100 WBC (Bld)21.3 %Bqtoiq15.0-50.0Tuscarawas HospitalComment on above:Performed By: #### [id number] #### [facility] [address] [place] [address]OPT (RBC) [Entitic mass]33.6 mtSqiyql54.0-34.0Tuscarawas HospitalComment on above:Performed By: #### [id number] #### [facility] [address] [place] [address]YAKG (RBC) [Mass/Vol]33.9 g/uPEkcrye56.4-36.0Tuscarawas HospitalComment on above:Performed By: #### [id number] #### [facility] [address] [place] [address]VVL (RBC) [Entitic vol]99.1 zEQpezam77.0-100.0Tuscarawas HospitalComment on above:Performed By: #### [id number] #### [facility] [address] [place] [address]Rzwedkolz (Bld) [#/Vol]0.7 E9/LNormal0.2-1.0Tuscarawas HospitalComment on above:Performed By: #### [id number] #### [facility] [address] [place] [address]Yplhpkenhqi (Bld) [#/Vol]4.1 E9/LNormal2.0-7.5FHocking Valley Community HospitalComment on above:Performed By: #### [id number] #### [facility] [address], [place] [address]Vsupyxqjrdd/100 WBC (Bld)63.7 %Rhneaq24.0-75.0Tuscarawas HospitalComment on above:Performed By: #### [id number] #### [facility] [address], [place] [address]Scnzeblx mean volume (Bld) [Entitic vol]8.0 fLNormal6.4-10.8 [facility]awas HospitalComment on above:Performed By: #### [id number] #### [facility] [address] [place] [address]Vorpwblhm (Bld) [#/Vol]249.0 E9/EDxwiwr010.0-500.0Tuscarawas HospitalComment on above:Performed By: #### [id number] #### [facility] [address] [place] [address] 31858DSC (Bld) [#/Vol]4.0 E12/LLow4.3-5.9[facility] Comment on above:Performed By: #### [id number] #### [facility] [address] [place] [address]ZTN corrected for nucl RBC Auto (Bld) [#/Vol]6.4 E9/LNormal 4.0-11.0Tuscarawas HospitalComment on above:Performed By: #### [id number] #### [facility] [address] [place] [address] 09476UULKCULKROboswfm By: SYSTEM SYSTEM on 14-22-0019Vfnttje [Mass/Vol]4.3 g/dLNormal3.3 - 5.0 gm/dLRemisol ChemAlbumin/Globulin [Mass ratio] 1.7 {ratio}Normal1.1 - 2.2Remisol ChemALP [Catalytic activity/Vol]75 [iU]/d Mqhxni61 - 98 Int._Unit/LRemisol ChemALT No additional P-5'-P [Catalytic activity/Vol]16 [iU]/dNormal6 - 46 Int._Unit/LRemisol ChemAnion gap [Moles/Vol] 14 mmol/LNormal6 - 16 mEq/LRemisol ChemAST [Catalytic activity/Vol]17 [iU]/d Normal5 - 43 Int._Unit/LRemisol ChemBilirubin [Mass/Vol]0.9 mg/dLNormal0.0 - 1.1 mg/dLRemisol ChemCalcium [Mass/Vol]8.0 mg/dLLow8.9 - 11.1 mg/dLRemisol Chem Chloride [Moles/Vol]102 mmol/BKvgrzz838 - 111 mmol/LRemisol ChemCholesterol [Mass/Vol]112 mg/nGCsj612 - 200 mg/dLRemisol ChemCholesterol in HDL [Mass/Vol]41 mg/dLInvalid Interpretation CodeRemisol ChemComment on above:Result Comment: '>= 60 LOW RISK' '<= 40 HIGH RISK'Cholesterol in LDL [Mass/Vol]59 mg/dLNormal<=129mg/dLRemisol ChemCholesterol in VLDL [Mass/Vol]20 mg/dLNormal7 - 40 mg/dLRemisol ChemCO2 [Moles/Vol]27 mmol/NZartoc60 - 31 mmol/LRemisol ChemCreatinine [Mass/Vol]1.3 mg/dLNormal0.5 - 1.3 mg/dLRemisol SrlunCYA37 mL/min/1.73 t8Mvzezm>=59mL/min/1.73 h9Pkzwghp ChemGlobulin (S) [Mass/Vol]2.6 g/dLNormal1.4 - 4.0 gm/dLRemisol Chem Glucose [Mass/Vol]291 mg/rYDfxp61 - 199 mg/dLRemisol ChemPotassium [Moles/Vol] 3.7 mmol/LNormal3.5 - 5.3 mmol/LRemisol ChemProtein [Mass/Vol]6.9 g/dLNormal6.0 - 7.8 gm/dLRemisol ChemSodium [Moles/Vol]139 mmol/YZttdna315 - 145 mmol/LRemisol ChemTriglyceride [Mass/Vol]100 mg/dLNormal<=149mg/dLRemisol ChemUrea nitrogen [Mass/Vol]12 mg/dLNormal5 - 21 mg/dLRemisol ChemUrea nitrogen/Creatinine [Mass ratio]9 mg/mgLow10 - 20Remisol ChemAlbumin DL <= 20 mg/L (U) [Mass/Vol]10.5 mg/dLHigh0.0 - 1.9 mg/dLRemisol ChemCHEMISTRYOrdered By: Isidro Leonard on 85-49-6475TqG9r (Bld) [Mass fraction]8.0 %High<=5.9%[facility] ChemAutoSSCMPon 24-08-2841Aarttdd [Mass/Vol]4.3 g/dLNormal3.3-5.0[facility] Comment on above:Performed By: #### [id number] #### [facility] [address], [place] [address]Utkyaks/Globulin (S) [Mass conc ratio]1.4Muqiij9.1-2.2FHocking Valley Community HospitalComment on above:Performed By: #### [id number] #### [facility] [address], [place] [address]JJM [Catalytic activity/Vol]75 Int._Unit/NWwjwgn50-03EftklfTuscarawas HospitalComment on above:Performed By: #### [id number] #### [facility] [address], [place] [address]ZAL No additional P-5'-P [Catalytic activity/Vol]16 Int._Unit/L Normal6-46Tuscarawas HospitalComment on above:Performed By: #### [id number] #### [facility] [address], [place] [address]Maxte gap [Moles/Vol]14 mmol/LNormal6-16Tuscarawas HospitalComment on above:Performed By: #### [id number] #### [facility] [address], [place] [address]IFC [Catalytic activity/Vol]17 Int._Unit/LNormal5-43Tuscarawas HospitalComment on above:Performed By: #### [id number] #### [facility] [address], [place] [address]Kcelsyxuy [Mass/Vol]0.9 mg/dLNormal0.0-1.1Fisher Goodhue Medical CenterComment on above:Performed By: #### [id number] #### [facility] [address], [place] [address]Mgzrwwa [Mass/Vol]8.0 mg/dLLow8.9-11.1FHocking Valley Community HospitalComment on above:Performed By: #### [id number] #### [facility] [address], [place] [address]Ulwzxskz [Moles/Vol]102 mmol/MCpqkun521-261FnletwTuscarawas HospitalComment on above:Performed By: #### [id number] #### [facility] [address], [place] [address]VT2 [Moles/Vol]27 mmol/NDwlpqp49-05QiritrTuscarawas Hospital Comment on above:Performed By: #### [id number] #### [facility] [address], [place] [address]Ydwwfniaqx [Mass/Vol]1.3 mg/dLNormal0.5-1.3FHocking Valley Community HospitalComment on above:Performed By: #### [id number] #### [facility] [address], [place] [address]Xsjhmetr (S) [Mass/Vol]2.6 g/dLNormal1.4-4.0Tuscarawas HospitalComment on above:Performed By: #### [id number] #### [facility] [address], [place] [address]Zlutiun [Mass/Vol]291 mg/fPDizh25-991NwoumfTuscarawas HospitalComment on above:Performed By: #### [id number] #### [facility] [address], [place] [address]Wtyrebkud [Moles/Vol]3.7 mmol/LNormal3.5-5.3FHocking Valley Community HospitalComment on above:Performed By: #### [id number] #### [facility] [address], [place] [address]Xtzceyz [Mass/Vol]6.9 g/dLNormal6.0-7.8Tuscarawas HospitalComment on above:Performed By: #### [id number] #### [facility] [address], [place] [address]Rpplnu [Moles/Vol]139 mmol/IMrzcba435-441HjrpbzTuscarawas HospitalComment on above:Performed By: #### [id number] #### [facility] [address], [place] [address]Bbwr nitrogen [Mass/Vol]12 mg/dLNormal5-21Tuscarawas HospitalComment on above:Performed By: #### [id number] #### [facility] [address], [place] [address]Njkt nitrogen/Creatinine [Mass ratio]9 No AzprkEuh31-43BhytlwTuscarawas HospitalComment on above:Performed By: #### [id number] #### [facility] [address], [place] [address]Bzeyhd Medicine Office/Clinic Noteon 15-23-6764Islgjo Medicine Office/Clinic NoteHubbard Regional Hospital Medicine Office/Clinic Note Chief Complaint Med Refills Worsening depressive symptoms following a recent bereavement. [facility] Staff Pt presents today for med refills [...] Concerns: [facility]. Denies needing anyrefills. History of Present Illness The patient is a 69-year-old male presenting with worsening depressive symptoms following the deathof his brother two weeks ago. He reports feeling significantly down, attributing this exacerbation to the recent bereavement. The patient's history includes recurrent major depressive disorder, whichhe is currently experiencing at a moderate level. 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 He also mentions self-catherization due to [...] level of consciousness appropriate for age, CN II- XII intact, motor strength equal & normal bilaterally, [...] HgbA1c Lipid Panel Microalbumin Level Urine Urine Microalbumin/Creatinine Ratio 2. Type 2 diabetes mellitus with hypercholesterolemia (E11.69: Type 2 diabetes mellitus with other specified complication) Will recheck labs today. Pt does not check his BS at home. Ordered: CBC w/ Auto Diff Cologuard Screening Test Comprehensive Metabolic Panel HgbA1c Lipid Panel Microalbumin Level Urine Urine Microalbumin/Creatinine Ratio 3. Diabetic nephropathy associated with type 2 diabetes mellitus (E11.21: Type 2 diabetes mellitus with diabetic nephropathy) Blood glucose levels need monitoring. Patient is reminded of the importance of regular checks to manage diabetes effectively. Ordered: CBC w/ Auto Diff Cologuard Screening Test Comprehensive Metabolic Panel HgbA1c Lipid Panel Microalbumin Level Urine Urine Microalbumin/Creatinine Ratio 4. Colon cancer screening (Z12.11: Encounter for screening for malignant neoplasm of colon) Ordered: CBC w/ Auto Diff Cologuard Screening Test Comprehensive Metabolic Panel HgbA1c Lipid Panel Microalbumin Level Urine Urine Microalbumin/Creatinine Ratio 5 (more content not included)...[facility] City HospitalComment on above:Result Comment: Electronically Signed By: Ruiz REYNOLDS, Nancy Thompson\.br\Date and Time Signed: 07/09/24 08:07 ESTHEMATOLOGYOrdered By: SYSTEM SYSTEM on 07-09-2024 Basophils/100 WBC (Bld)0.7 %Normal0.0 - 2.0 %Remisol HemeBasophils/Leukocytes Auto (Bld) [Pure # fraction]0.0 E9/LNormal0.0 - 0.2 E9/LRemisol HemeEosinophils (Bld) [#/Vol]0.2 E9/LNormal0.0 - 0.5 E9/LRemisol HemeEosinophils/100 WBC (Bld) 3.3 %Normal0.0 - 8.0 %Remisol HemeErythrocyte distribution width (RBC) [Ratio] 12.9 %Qpuwee68.9 - 14.2 %Remisol HemeHematocrit (Bld) [Volume fraction]39.3 % Xxouyn70.7 - 49.0 %Remisol HemeHemoglobin (Bld) [Mass/Vol]13.3 g/dLLow13.5 - 17.5 gm/dLRemisol HemeLymphocytes (Bld) [#/Vol]1.4 E9/LNormal1.0 - 4.0 E9/L Remisol HemeLymphocytes/100 WBC (Bld)21.3 %Fqisnt71.0 - 50.0 %Remisol HemeMCH (RBC) [Entitic mass]33.6 atKwwfuo24.0 - 34.0 pgRemisol HemeMCHC (RBC) [Mass/Vol] 33.9 g/aPZhlvlc85.4 - 36.0 gm/dLRemisol HemeMCV (RBC) [Entitic vol]99.1 fLNormal 80.0 - 100.0 fLRemisol HemeMonocytes (Bld) [#/Vol]0.7 E9/LNormal0.2 - 1.0 E9/L Remisol HemeMonocytes/100 WBC (Bld)11.0 %Normal4.0 - 14.0 %Remisol Heme Neutrophils (Bld) [#/Vol]4.1 E9/LNormal2.0 - 7.5 E9/LRemisol HemeNeutrophils/100 WBC (Bld)63.7 %Ssapyz27.0 - 75.0 %Remisol HemePlatelet mean volume (Bld) [Entitic vol]8.0 fLNormal6.4 - 10.8 fLRemisol HemePlatelets (Bld) [#/Vol]249.0 E9/QLzobeo891.0 - 500.0 E9/LRemisol HemeRBC (Bld) [#/Vol]4.0 E12/LLow4.3 - 5.9 E12/LRemisol HemeWBC corrected for nucl RBC Auto (Bld) [#/Vol]6.4 E9/LNormal4.0 - 11.0 E9/LRemisol OffnSqoJ1rjn 52-71-2825DqN8q (Bld) [Mass fraction]8.0 %High <=5.9Tuscarawas HospitalComment on above:Performed By: #### [id number] #### [facility] [address] [place] [address]Mtqaw Panelon 14-98-7451Bejlcgvowce [Mass/Vol]112 mg/dLLow 120-200Tuscarawas HospitalComment on above:Performed By: #### [id number] #### [facility] [address], [place] [address]Shaxzwytgkn in HDL [Mass/Vol]41 mg/dLInvalid Interpretation CodeTuscarawas HospitalComment on above:Result Comment: '>= 60 LOW RISK' '<= 40 HIGH RISK'Performed By: #### [id number] #### [facility] [address], [place] [address]Dvgocejcivn in LDL [Mass/Vol]59 mg/dLNormal<=129Tuscarawas HospitalComment on above:Performed By: #### [id number] #### [facility] [address], [place] [address]Fpyixflsgha in VLDL [Mass/Vol]20 mg/dLNormal7-40Tuscarawas HospitalComment on above:Performed By: #### [id number] #### [facility] [address], [place] [address]Nlvdlemgykqg [Mass/Vol]100 mg/dLNormal<=149Tuscarawas HospitalComment on above:Performed By: #### [id number] #### [facility] [address], [place] [address]Qzn-Ligay Planningon 66-03-0504Zpr-Visit PlanningPre-Visit Planning From: Valarie Solis To: Nancy Grace MD; Sent: 07/06/2024 11:32:39 EST Subject: Pre-Visit Planning Due Date/Time: 07/06/2024 11:32:00 EST Caller Name: ALICJA REYES; Caller Number: , M Fl Dr. Grace. During a [...] clarify which, if any, of the following conditions/complications are present? I can update the Chronic [...] feel free to contact me at extension [phone]. Thank you! Valarie Solis LPN Clinical Licensed Direct Entry Midwife [place] [address] Extension: [phone] [email or web address] From: Nancy Grace MD To: Valarie Solis; Sent: 07/09/2024 09:09:48 EST Subject: RE: Pre-Visit Planning Caller Name: ALICJA REYES; Caller Number: H , M -Type 2 diabetes mellitus with peripheral neuropathy, Yes he has it and we discussed it today at his visit.[facility] City HospitalPre-Visit PlanningPre-Visit Planning From: Valarie Solis To: Nancy Grace MD; Sent: 07/06/2024 11:03:26 EST Subject: Pre-Visit Planning Due Date/Time: 07/06/2024 11:03:00 EST Caller Name: ALICJA REYES; Caller Number: H , M Fl Dr. Grace. During a pre-visit planning chart review, I noted the following documentation in the medical recordindicates that this patient had BMI of 36.48 [...] you! Valarie Solis LPN Clinical Documentation Improvement SpecialistRandy [place] [phone] TEAMS or [email or web address] From: Ruiz REYNOLDS, Nancy Thompson To: Valarie Solis; Sent: 07/09/2024 07:49:46 EST Subject: RE: Pre-Visit Planning Caller Name: ERIC ALICJA Bharathi; Caller Number: , Added Morbid Obesity.NormalTuscarawas HospitalU Microalbon 07-09-2024 Albumin DL <= 20 mg/L (U) [Mass/Vol]10.5 mg/dLHigh0.0-1.9Tuscarawas HospitalComment on above:Performed By: #### [id number] #### [facility] [address] [place] [address]zJXFvd 94-84-9578zTYP19 mL/min/1.73 h8Bskspp>=59Tuscarawas HospitalComment on above:Performed By: #### [id number] #### [facility] [address] [place], [place] [address]Mxumirho Letteron 88-40-4358Vsaeryic LetterProvider Letter July 02, 2024 ALICJA REYES [address] [place] [id number] : 1955 Dear Alicja , We have been trying to reach you with no success. You have an appointment with Dr. Tao on 07/23/2024 which will need to be rescheduled since he/she will be out of the office that day. Please contactthe office at the number listed below to get this appointment rescheduled at your earliest convenience. Thank you for your prompt attention to this matter. Sincerely, [facility] [address] [place] [address] OgmtwzBuoongZanesville City HospitalEMG 2 Extremitieson 72-55-6696KFYJ HealthcareA generalized process such as a polyneuropathy which is axonal loss in type and moderate to severe in degree electrically Carpal tunnel syndrome bilaterally, moderate right and mild left, may be overestimated given polyneuropathy Cervical radiculopathy can not be excludedSwain Community HospitalN 11- 12 Nerveson 13-85-9333ZTDV HealthcareA generalized process such as a polyneuropathy which is axonal loss in type and moderate to severe in degree electrically Carpal tunnel syndrome bilaterally, moderate right and mild left, may be overestimated given polyneuropathy Cervical radiculopathy can not be excludedSwain Community Hospital Ambulatory Visit Summaryon 52-30-7382Xrcsumvwcd Visit SummaryAmbulatory Visit Summary ALICJA REYES :1955 Visit Date:05/18/2024 [...] Appointments Tuesday 8:00 AM EST With: Where: [facility] [address] [address]- Tuesday 8:15 AM EST With: EMMY REYNOLDS, Bryant Vogel Where: [facility] [address] [place] [address]- Medications What How Much When Instructions Unchanged [...] 1 Tablets By Mouth Every day Unchanged [facility] Prescription ([facility] DME Prescription) 'Number 1' Glucometer and test strips testing BS twice daily- will bring equipment to [facility] f/ u to update brand Unchanged [...] you for choosing us for your care. [facility] Medicine Office/Clinic Noteon 43-51-0569Otztmx Medicine Office/Clinic NoteHubbard Regional Hospital Medicine Office/Clinic Note HPI Staff Alicja [...] bedtime), # 30 cap(s), Refills(s) 0, [id number] 175.3, cm, 05/18/24 7:58:00 EST, Height/Length Dosing, 112.1, kg, 05/18/24 7:58:00 EST, Weight Dosing EMG Right Lower Extremity (RLE) [facility] External Ambulatory Referral 2. Former smoker (Z87.891: [...] medical support in addressing this problem. Your BMIand weight management will be followed at subsequent visits. Ordered: omeprazole, 20 mg = 1 cap(s), Oral, Daily, # 90 cap(s), Refills(s) 0, [id number],175.3, cm, 05/18/24 7:58:00 EST, Height/Length Dosing, 112.1, [...] medical support in addressing this problem. Your BMIand weight management will be followed at subsequent visits. Ordered: omeprazole, 20 mg = 1 cap(s), Oral, Daily, # 90 cap(s), Refills(s) 0, [facility]: [id number],175.3, cm, 05/18/24 7:58:00 EST, Height/Length Dosing, 112.1, kg, 05/18/24 7:58:00 EST, Weight Dosing Paresthesia of skin (R20.2: Paresthesia of skin) Discussed CCM program with patient and he declined. Total time spent preparing the chart, conducting of the encounter with the patient and family and time spent documenting, reviewing, and ordering tests was 30 minutes. Follow-up No qualifying data available Patient Education Paresthesia, Bgfc-jd-Ldhz Problem List/Past Medical History Ongoing Alcohol abuse [...] Tab, 400 mg, Oral, (more content not included)...Normal Tus[facility]awas HospitalComment on above:Result Comment: Electronically Signed By: MARINO KEARNS CNP\.oliver\Date and Time Signed: 05/18/24 08:48 EST Magnesiumon 30-27-5857Auanknuxd [Mass/Vol]0.5 mg/dLAbnormal1.3-2.4[facility] Grace Medical CenterComment on above:Result Comment: Critical Result S_M.5 Called to and read back by: NOBLE OLIVAS at: 02/28/2024 15:00:56 by:[email or web address] Critical Result Verified by Repeat AnalysisPerformed By: #### [id number] ####[facility] [address] [place], [place] [address]MPDSKVTAC Ordered By: SYSTEM SYSTEM on 07-18-6100Mylolfk [Mass/Vol]4.1 g/dLNormal3.3 - 5.0 gm/dLRemisol ChemAnion gap [Moles/Vol]15 mmol/LNormal6 - 16 mEq/LRemisol Chem Calcium [Mass/Vol]8.4 mg/dLLow8.9 - 11.1 mg/dLRemisol ChemChloride [Moles/Vol] 101 mmol/LEvyshg482 - 111 mmol/LRemisol ChemCO2 [Moles/Vol]26 mmol/KKonpzp50 - 31 mmol/LRemisol ChemCreatinine [Mass/Vol]1.3 mg/dLNormal0.5 - 1.3 mg/dLRemisol LngwuUZM08 mL/min/1.73 g1Sgxvce>=59mL/min/1.73 t1Prvllse ChemGlucose [Mass/Vol] 274 mg/mUDwhv72 - 199 mg/dLRemisol ChemPhosphate [Mass/Vol]2.4 mg/dLNormal1.9 - 4.6 mg/dLRemisol ChemPotassium [Moles/Vol]4.1 mmol/LNormal3.5 - 5.3 mmol/L Remisol ChemSodium [Moles/Vol]138 mmol/UOboanp569 - 145 mmol/LRemisol ChemUrea nitrogen [Mass/Vol]14 mg/dLNormal5 - 21 mg/dLRemisol ChemUrea nitrogen/Creatinine [Mass ratio]11 mg/lhRnrloo40 - 20Remisol ChemRenal Panelon 10-15-5560Qwgqfxs [Mass/Vol]4.1 g/dLNormal3.3-5.0[facility] Comment on above:Performed By: #### [id number] #### [facility] [address], [place] [address]Dgkrh gap [Moles/Vol]15 mmol/LNormal6-16Tuscarawas HospitalComment on above:Performed By: #### [id number] #### [facility] [address], [place] [address]Fwosduc [Mass/Vol]8.4 mg/dLLow8.9-11.1FHocking Valley Community HospitalComment on above:Performed By: #### [id number] #### [facility] [address], [place] [address]Ooruxfsh [Moles/Vol]101 mmol/EZondrt979-095IrsslkTuscarawas HospitalComment on above:Performed By: #### [id number] #### [facility] [address], [place] [address]CH7 [Moles/Vol]26 mmol/PPzsfmg39-22GtatbbTuscarawas Hospital Comment on above:Performed By: #### [id number] #### [facility] [address], [place] [address]Aeoixfkhpn [Mass/Vol]1.3 mg/dLNormal0.5-1.3FHocking Valley Community HospitalComment on above:Performed By: #### [id number] #### [facility] [address], [place] [address]Ycixjbw [Mass/Vol]274 mg/fJCbjh79-333NvfyjiTuscarawas HospitalComment on above:Performed By: #### [id number] #### [facility] [address], [place] [address]Oiclamnvs [Mass/Vol]2.4 mg/dLNormal1.9-4.6FHocking Valley Community HospitalComment on above:Performed By: #### [id number] #### [facility] [address], [place] [address]Vuvokcplh [Moles/Vol]4.1 mmol/LNormal3.5-5.3FHocking Valley Community HospitalComment on above:Performed By: #### [id number] #### [facility] [address], [place] [address]Hguspf [Moles/Vol]138 mmol/HLkqwqn133-133IfnzssTuscarawas HospitalComment on above:Performed By: #### [id number] #### [facility] [address], [place] [address]Qnhn nitrogen [Mass/Vol]14 mg/dLNormal5-21Tuscarawas HospitalComment on above:Performed By: #### [id number] #### [facility] [address], [place] [address]Jdyk nitrogen/Creatinine [Mass ratio]11 No NgbraStjcsp65-32 [facility] HospitalComment on above:Performed By: #### [id number] #### [facility] [address], [place] [address]xRHPiy 03-50-4445cUOV63 mL/min/1.73 h9Bnikpl>=59Tuscarawas HospitalComment on above:Order Comment: Order added by Discern Expert. Performed By: #### [id number] #### [facility] [address], [place] [address]ORTGLFFUZUwxtlze By: SYSTEM SYSTEM on 60-51-1261Ocbmtrxwl [Mass/Vol]0.5 mg/dLInvalid Interpretation Code1.3 - 2.4 mg/dLBEAVER [facility] Chem SComment on above:Result Comment: Critical Result Verified by Repeat Analysis called to Marcin Grace by BHAVNA at 01/30/2024 19:19:23 EDT Results Verified By Repeat AnalysisMagnesiumon 14-33-4671Fxhpxukhh [Mass/Vol]0.5 mg/dLAbnormal1.3-2.4FHocking Valley Community HospitalComment on above:Result Comment: Critical Result Verified by Repeat Analysis called to Marcin Grace by [id number] at 01/30/2024 19:19:23 EDT Results Verified By Repeat AnalysisPerformed By: #### [id number] #### [facility] [address], [place] [address]Wrbnazdar [Mass/Vol]0.5 mg/dLAbnormal1.3-2.4[facility] Grace Medical CenterComment on above:Result Comment: Critical Result Verified by Repeat AnalysisPerformed By: #### [id number] #### [facility] [address] [place] [address]RhwhtrtmaxUC Medical Center 61-26-0597LhihzsbtqlBerwick Hospital Center Case Information Case Priority: None Programs: -- Referral Source: Yeast Pumper Referral Reason: Care coordination Case Type: Transition [...] tobacco, Ready to change: No. Household tobacco concerns:No. Yes, 01/13/2024 Family History Primary malignant neoplasm [...] with bowel or urinary system. Patient is sle eping 'fine.' Patient denies any further questions or concerns. Communication Events Date: January 18, 2024 Method: Phone call Type: Outbound Duration (min): 6 Outcome: Case discussion Contact Type: Patient Contact Name: ALICJA REYES Notes: TCM#3- see tcm note. Created By: Alicja Castellon Date: January 12, 2024 Method: Phone call Type: Outbound Duration (min): 1 Outcome: Left message-voicemail Contact Type: Complex care program residentit service manager Name: Alicja Castellon Notes: TCM#2- message left for return call. Created By: Alicja Castellon Date: January 03, 2024 Method: Phone call Type: Outbound Duration (min): 12 Outcome: Case discussion Contact Type: disability services coordinator Contact Name: Alicja Castellon Notes: TCM#1- see tcm note. Created By: Alicja Castellon Date: January 02, 2024 Method: Phone call Type: Outbound Duration (min): 1 Outcome: Left message-voicemail Contact Type: disability services coordinator Contact Name: Alicja Castellon Notes: TCM#1- left vm for return call. Created By: Alicja Castellon [facility] HospitalAmbulatory Visit Summaryon [phone] Visit SummaryAmbulatory Visit Summary ALICJA REYES :1955 Visit Date:01/13/2024 Ambulatory Visit Instructions Your Diagnosis HTN (hypertension) Your Care Team Attending Physician - Javier Goins MD Primary Care Physician - Ruiz REYNOLDS, [...] Appointments Tuesday 8:00 AM EST With: Where: [facility] [address] [address]- Tuesday 8:15 AM EST With: EMMY REYNOLDS, Bryant Vogel Where: [facility] [address] [place] [address]- Medications What How Much When Instructions Unchanged [...] By Mouth Every day Unchanged Misc Prescription ([facility] DME Prescription) 'Number 1' Glucometer and test [...] you for choosing us for your care. [facility] HospitalHeart [facility] Vascular Office/Clinic Noteon 66-98-0827Fscgu and Vascular Office/Clinic NoteHeart and Vascular Office/Clinic Note Chief Complaint 2 [...] that most recently, he had an episode ofpalpitations while he was in the hospital, however [...] Vitamin Tab, See Instructions (more content not included)...[facility]ville City HospitalComment on above:Result Comment: Electronically Signed By: Buster REYNOLDS, Javier Garvin\.oliver\Date and Time Signed: 01/13/24 09:18 EDTCHEMISTRYOrdered By: SYSTEM SYSTEM on [id number] PSA [Mass/Vol]0.3 ng/mLInvalid Interpretation CodeRemisol ChemComment on above: Interpretive Data: The concentration of free PSA and total PSA determined with assays from different manufacturers can vary due to differences in assay methods and specificity. Values obtained with different bacteriologist dairy's assays cannot be used interchangeably. The methodology used to obtain this result was chemiluminescence using [employer] Access Hybritech PSA reagent and Access Hybritech free PSA reagent.Free PSA/Total PSA [Mass fraction]16.7 %Low >=25.0%Remisol ChemMagnesium [Mass/Vol]0.9 mg/dLInvalid Interpretation Code1.3 - 2.4 mg/dLRemisol ChemComment on above:Result Comment: Critical Result Verified by Repeat Analysis Critical Result S_M.9 Called to and read back by: DR KATZ at: 01/11/2024 19:10:59 by:BABProstate specific Ag [Mass/Vol]1.8 ng/mLNormal0.1 - 3.5 ng/mL Remisol ChemComment on above:Interpretive Data: The concentration of PSA determined by different manufacturers can vary due to differences in assay methods and reagent specificity. Values obtained from different assay methods cannot be used interchangeably. The methodology used for this result was chemiluminescence using [employer]'s Access Hybritech PSA reagent.Magnesium on 33-65-7058Xcfxwknjz [Mass/Vol]0.9 mg/dLAbnormal1.3-2.4Ftc [facility] Medical CenterComment on above:Result Comment: Critical Result Verified by Repeat Analysis Critical Result S_M.9 Called to and read back by: DR KATZ at: 01/11/2024 19:10:59 by:GALOPerformed By: #### [id number] #### [facility] [address], [place] [address]Gqwjmhiybp Visit Summaryon [id number] Visit Summary Ambulatory Visit Summary ALICJA REYES [...] Appointments Tuesday 8:00 AM EDT With: Where: [address] [address]- Tuesday 9:00 AM EDT With: Buster REYNOLDS, Javier Garvin Where: [facility] Tuesday 8:00 AM EST With: Where: [facility] [address] [address]- Tuesday 8:15 AM EST With: Bryant TAO MD Where: [facility] [address] [place] [address]- You Need to Schedule the Following Appointments Follow Up with EMMY REYNOLDS, Bryant Vogel, URL When: Comments: 6 mos Where: [address] [address]- Medications What How Much When Instructions Unchanged [...] BS twice daily- will bring equipment to [facility] f/ u to update brand Unchanged [...] you for choosing us for your care. [facility] Office/Clinic Noteon [id number] Office/Clinic NoteUrology Office/Clinic Note Chief Complaint follow up HPI [...] (R33.9: Retention of urine, unspecified) 06/04/23 - [facility] ER due to chills and dizziness [...] bladder distension. Bladder wall thickening and large bladdervolume, consider TALAMANTES. 07/15/23 - Per test results, [...] (N40.0: Benign prostatic hyperplasia without lower urinary tractsymptoms) MRI of prostate 07/21[place]23 [facility] [place] Prostate volume 26 cc. Grossly distended [...] 04/04/23 - 6.1 MRI of prostate 07/21/23 [facility] [place] A focal area involving the anterior aspect of the R peripheral zoneat the level of the mid gland measuring [...] to 1.2 L p (more content not included)...[facility] HospitalComment on above:Result Comment: Electronically Signed By: EMMY REYNOLDS, Bryant Vogel\.br\Date and Time Signed: 01/10/24 09:02 EDT\.br\Electronically Co- Signed By: Alis Velásquez\.br\Date and Time Co-Signed: 01/10/24 08:59 EDT Ambulatory Visit Summaryon [id number] Visit SummaryAmbulatory Visit Summary ALICJA REYES :1955 Visit Date:01/05/2024 [...] Bryant Vogel [facility]: [facility] [address] [facility] [place] [address]- Tuesday 8:00 AM EDT With: Where: [facility] [address] [address]- Tuesday 9:00 AM EDT With: Buster REYNOLDS, Javier Garvin Where: [facility] Tuesday 8:00 AM EST With: Where: [facility] [address] [address]- Medications What How Much When Why Instructions [...] By Mouth 2 times a day Hypomagnesemia HypokalemiaGastroesophageal reflux disease without esophagitis Dizziness BMI 37.0-37.9, [...] Tablets By Mouth Every day Unchanged [facility] ([facility] Prescription) 'Number 1' Glucometer and test [...] you for choosing us for your care. [facility] Medicine Office/Clinic Noteon [id number] Medicine Office/Clinic NoteHub[facility] Office/Clinic Note HPI Staff Alicja is a 68 year old male presenting for hospital follow up TCM: Hospital: [facility] Admission date: 12/29/23 Discharge date: 12/30/23 Symptoms the patient presented with: sent by pcp for hypomagnesia Current concerns: doesn't care for Dacia Bañuelos the [employer] she took care of him in the [...] (Z09: Encounter for follow-up examination after completed treatmentfor conditions other than malignant neoplasm) - Reviewed [...] Systolic BP 130-139 mm (more content not included)...[facility] HospitalComment on above:Result Comment: Electronically Signed By: Nancy Grace MD\.br\Date and Time Signed: 01/05/24 08:26 [facility] [employer] 01-03-2024 [facility] Case Information Case Priority: None Programs: -- Referral Source: Yeast Pumper Referral Reason: Care coordination Case Type: Transition [...] HLD (hyperlipidemia), Non-insulin dependent type 2 diabetes m ellitus, Neurogenic bladder disorder, BPH with urinary obstruction, Chronic GERD, Depression, Obesity, On deep vein thrombosis (DVT) prophylaxis, Abnormal diagnostic test. Medications reconciled withpatient list, EHR, and D/C list. Reviewed purpose and side effects of new medications with patient.Patient states he is doing 'good.' Patient does not have BP monitor in home and is unable to check.Patient reports improvement to muscle weakness since hospital stay. He does note some heart fluttering today, he thinks from the ATB. States not steady. Denies racing heart, lightheadedness, or dizziness. Denies N/V, or decreased appetite. Patient reports last BM this am. (more content not included) ...NormalTuscarawas HospitalPTH Intacton [id number].intact [Mass/Vol]23 pg/mLInvalid Interpretation Gggm77-35TdvtjlTuscarawas Hospital Comment on above:Result Comment: Performed at: [facility] [address] [id number] PhD Malik FernandoPerformed By: #### [id number] #### [facility] [address] [place], [place] [address]C Urineon 02-23-5224Pefsmuph identified Cx Nom (U)Microbiology PROCEDURE: Urine Culture [R1] SOURCE: U CleanCatch BODY SITE: COLLECTED DATE/TIME: 12/29/2023 15:42 EDT RECEIVED DATE/TIME: 12/29/2023 17:12 EDT START DATE/TIME: 12/29/2023 17:12 EDT FREE TEXT SOURCE: EDDA [facility], Dacia BAÑUELOS [facility], Dacia FINAL REPORTS Final Report [] Verified Date/Time: 12/31/2023 09:17 EDT 75,000 cfu/ml Enterococcus faecalis SUSCEPTIBILITY RESULTS LEGEND: S=Susceptible, N/R=Not Reported, Blank=Data not available, or drug not advisable or tested, I=Intermediate, ESBL=Extended spectrum beta-lactamase, R=Resistant, TFG=Thymidine-dependent strain, MAGGI=Beta-lactamase positive, EMERSON=mcg/m;(mg/L), S*=Predicted susceptible interp, R*=Predicted resistant interp Entfaeca Antibiotic EMERSON Dilutn EMERSON Interp Ampicillin <=2 S Ciprofloxacin <=1 S Daptomycin <=1 S Levofloxacin 2 S Linezolid <=2 S Nitrofurantoin <=32 S Penicillin 2 S Rifampin 2 I Tetracycline >8 R Vancomycin 1 S Performing Locations R1: This test was performed at: [facility], [address] [place] [address], [address]- , , AvkieiQvrbmxFairfield Medical CenterComment on above:Performed By: #### [id number] #### [facility] [address] [place] [address]Wdmlcvt Message Officeon [id number] Message Office General Message Office --- --- --- --- --- --- --- --- --- From: Jhon, DirectInbox To: ALICJA REYES Sent: 12/31/23 02:30:27 AM EDT Subject: Discharge Summary Ready to View A summary regarding your recent visit is available in the Documents section of your health record.[facility] HospitalLab Miscellaneous-LCon [id number] MiscellaneousCOMMENTInvalid Interpretation CodeTuscarawas HospitalComment on above:Order Comment: Random sample, not 24hr collection UrineResult Comment: Test Ordered: [id number] Magnesium, U Magnesium, U 5.1 mg/dL CB Reference Range: Not Estab. Performed at: [facility] [address] [id number] PhD Malik FernandoPerformed By: #### [id number] #### [facility] [address] [place] [address]WYCXUCKHLIaoznhs By: Zach Alvarez on 54-80-0094Rceqbdf [Mass/Vol]168 mg/qPDpqi65 - 99 mg/dLBE[facility]ER [facility] POC SubsectionComment on above:Result Comment: Notified RN/MDPOC Device [id number] 1Invalid Interpretation Code [facility] POC SubsectionPOC User [id number] 1Invalid Interpretation CodeFT POC SubsectionPOC UsernameHZAC RUSSOEInvalid Interpretation CodeFT POC SubsectionGlucose [Mass/Vol]150 mg/aRBauc94 - 99 mg/dLBEAVER COUNTY [facility] POC SubsectionComment on above:Result Comment: Notified RN/MDPOC Device [id number] 1Invalid Interpretation CodeBEAVER [facility] POC SubsectionPOC User [id number] 1Invalid Interpretation CodeBEAVER COUNTY [facility] POC SubsectionPOC UsernamZAC SummersEInvalid Interpretation CodeBEAVER COUNTY [facility] POC SubsectionCHEMISTRYOrdered By: SYSTEM SYSTEM on 12-30-2023U Bhsocxcuam12.7 mg/dLInvalid Interpretation CodeRemisol ChemUr Total Gubxmly44.4 mg/dLInvalid Interpretation CodeRemisol ChemAnion gap [Moles/Vol]15 mmol/LNormal6 - 16 mEq/LRemisol ChemCalcium [Mass/Vol]10.0 mg/dLNormal8.9 - 11.1 mg/dLRemisol ChemChloride [Moles/Vol]101 mmol/OYfajan261 - 111 mmol/LRemisol ChemCO2 [Moles/Vol]26 mmol/FFkkrqg05 - 31 mmol/LRemisol ChemCreatinine [Mass/Vol]1.2 mg/dLNormal0.5 - 1.3 mg/dLRemisol VpwflHUK26 mL/min/1.73 h4Gvjflg >=59mL/min/1.73 r2Rcjftoz ChemGlucose [Mass/Vol]166 mg/oQOiesit32 - 199 mg/dL Remisol ChemMagnesium [Mass/Vol]1.6 mg/dLNormal1.3 - 2.4 mg/dLRemisol Chem Potassium [Moles/Vol]4.9 mmol/LNormal3.5 - 5.3 mmol/LRemisol ChemSodium [Moles/Vol]137 mmol/XRgyrxu598 - 145 mmol/LRemisol ChemTSH Qn1.54 m[IU]/LNormal 0.34 - 5.60 mcIU/mLRemisol ChemUrea nitrogen [Mass/Vol]17 mg/dLNormal5 - 21 mg/dLRemisol ChemUrea nitrogen/Creatinine [Mass ratio]14 mg/wnRizovg08 - 20 Remisol ChemCapillary Glucose POCon 49-14-1074Adtbrox [Mass/Vol]168 mg/dLHigh 55-99Formerly [facility] Countyer Grace Medical CenterComment on above:Result Comment: Notified RN/MD Performed By: #### [id number] #### [facility] [address], [place] [address]FIZORCOFJOKudalrn By: SYSTEM SYSTEM on 10-73-5226Eioryevld/100 WBC (Bld)1.1 %Normal0.0 - 2.0 %Remisol HemeBasophils/Leukocytes Auto (Bld) [Pure # fraction]0.1 E9/LNormal0.0 - 0.2 E9/LRemisol HemeEosinophils (Bld) [#/Vol]0.2 E9/LNormal0.0 - 0.5 E9/LRemisol HemeEosinophils/100 WBC (Bld)3.3 %Normal0.0 - 8.0 %Remisol HemeErythrocyte distribution width (RBC) [Ratio]13.3 %Zdcqnw87.9 - 14.2 %Remisol HemeHematocrit (Bld) [Volume fraction]37.9 %Daoqou24.7 - 49.0 % Remisol HemeHemoglobin (Bld) [Mass/Vol]13.4 g/dLLow13.5 - 17.5 gm/dLRemisol Heme Lymphocytes (Bld) [#/Vol]1.5 E9/LNormal1.0 - 4.0 E9/LRemisol HemeLymphocytes/100 WBC (Bld)22.5 %Wuwdpr49.0 - 50.0 %Remisol HemeMCH (RBC) [Entitic mass]33.8 pg Ffltpo05.0 - 34.0 pgRemisol HemeMCHC (RBC) [Mass/Vol]35.2 g/zKBjzord06.4 - 36.0 gm/dLRemisol HemeMCV (RBC) [Entitic vol]96.0 yKRjyuwe57.0 - 100.0 fLRemisol Heme Monocytes (Bld) [#/Vol]0.7 E9/LNormal0.2 - 1.0 E9/LRemisol HemeMonocytes/100 WBC (Bld)10.5 %Normal4.0 - 14.0 %Remisol HemeNeutrophils (Bld) [#/Vol]4.1 E9/L Normal2.0 - 7.5 E9/LRemisol HemeNeutrophils/100 WBC (Bld)62.6 %Oqiswo96.0 - 75.0 %Remisol MhopHcpmbqtw588.0 E9/BSkrcme838.0 - 500.0 E9/LRemisol HemePlatelet mean volume (Bld) [Entitic vol]7.2 fLNormal6.4 - 10.8 fLRemisol HemeRBC (Bld) [#/Vol]4.0 E12/LLow4.3 - 5.9 E12/LRemisol HemeWBC corrected for nucl RBC Auto (Bld) [#/Vol]6.6 E9/LNormal4.0 - 11.0 E9/LRemisol HemeInpatient Clinical Summary on 15-78-6968Ygtipafst Clinical SummaryInpatient Clinical Summary [place] [id number] Clinical Summary Person Information: Name: ALICJA REYES Age: 68 Years : 1955 Sex: Male PCP: Nancy Grace MD Marital Status: Race: White Ethnicity: Non- or Language: Emirati Visit Id: Visit Reason: Abnormal diagnostic test; SENT BY DR GRACE MAGNESIUM IS LOW Speciality: Acuity: Enc Type: Inpatient Med Service: Medical Arrival: 12/29/2023 13:33:35 Discharge: Dispo Type: Admitted as IP to this Hosp Address: [address] [place] [id number] Provider Notes: Diagnosis: 1:Hypomagnesemia; 2:UTI (urinary tract infection); 3:Hypertensive urgency; 4:Alcohol abuse; 5:Anemia; 6:HLD (hyperlipidemia); 7:Non-insulin dependent type 2 diabetes mellitus; 8:Neurogenic bladder disorder; 9:BPH with urinary obstruction; 10:Chronic GERD; 11:Depression; 12:Obesity; 13:On deep vein t hrombosis (DVT) prophylaxis Problems Active Hypomagnesemia Feeling of [...] up: With: Address: When: Ramos Euceda [address] [place] [address] Business (1) Comments: Call for followup appointment in [place] office With: Address: When: Nancy Grace [facility] [place] [address] Business (2) 01/05/2024 7:45 AM Type Location Start [facility] Follow Up w/TCM [facility]3] 01/05/2024 7:45 AM 01/05/2024 8:05 AM Confirmed URO Office Visit [facility] ZAIN [place] 01/10/2024 8:15 AM 01/10/2024 8:30 AM Confirmed Cardiology Follow Up (FT) [facility] 01/13/2024 9:00 AM 01/13/2024 9:15 AM Confirmed Medicare Wellness Subsequent [facility]3] 07/09/2024 8:00 AM 07/09/2024 9:00 AM Confirmed Patient Education Information: How to Take Your Blood Pressure, Olfk-aa-Xxiv; Form - Blood Pressure Record Sheet; Urinary Tract Infection, Adult, Rxbi-un-Pnfm; Hypomagnesemia cyanocobalamin, levofloxacin, lisinopril, magnesium oxide 400 mg [facility] Clinical SummaryInpatient Clinical Summary [address] [address] Clinical Summary Person Information: Name: ALICJA REYES Age: 68 Years : 1955 Sex: Male PCP: Nancy Grace MD Marital Status: Race: White Ethnicity: Non- or Language: Emirati Visit Id: Visit Reason: Abnormal diagnostic test; SENT BY DR GRACE MAGNESIUM IS LOW Speciality: Acuity: Enc Type: Inpatient Med Service: Medical Arrival: 12/29/2023 13:33:35 Discharge: Dispo Type: Admitted as IP to this Hosp Address: [address] [place] [id number] Provider Notes: Diagnosis: 1:Hypomagnesemia; 2:UTI (urinary tract [...] Mouth 2 times a day. Refills: 1. hydrochlorothiazide-lisinopril (hydrochlorothiazide-lisinopril 12.5 mg-20 mg Tab) 1 Tablets By Mouth every day. Refills: 0. magnesium oxide (magnesium oxide 400 mg Tab) 1 Tablets By Mouth every day. Refills: 0. metformin (Glucophage XR 500 mg Tab-ER) 2 Tablets By Mouth 2 times a day. Refills: 1. metoprolol (metoprolol 25 mg ER Tab) 1 Tablets By Mouth every day. Refills: 6. Misc Prescription ([facility] Prescription) Alcohol prep pads Use to test blood sugars daily Dx E11.9. Refills: 3. Misc Prescription ([facility] D[facility] Prescription) One Touch Ultra 2 glucose meter kit Use to tests sugars daily E11.9. Refills: 0. Misc Prescription ([facility] Prescription) One touch ultra 2 test [...] Follow up: With: Address: When: [facility] [place] [address] [facility] () 01/05/2024 7:45 AM Type Location Start [facility] Follow Up w/TCM [facility]3] 01/05/2024 7:45 AM 01/05/2024 8:05 AM Confirmed URO Office Visit [facility] 01/10/2024 8:15 AM 01/10/2024 8:30 AM Confirmed [facility] 01/13/2024 9:00 AM 01/13/2024 9:15 AM Confirmed Medicare Wellness Subsequent [facility]3] 07/09/2024 8:00 AM 07/09/2024 9:00 AM Confirmed Patient Education Information:[facility] HospitalIn[facility] Patient Summaryon [id number] Patient SummaryInpatient Patient Summary ALICJA REYES :1955 Visit Date:12/29/2023 [...] EC Tab) glipiZIDE (glipiZIDE 5 mg Tab) hydrochlorothiazide-lisinopril (hydrochlorothiazide-lisinopril 12.5 mg-20 mg Tab) ondansetron (Zofran ODT [...] EDT With: Ruiz REYNOLDS, Nancy Thompson Where: [address] [address]- Tuesday 8:15 AM EDT With: EMMY REYNOLDS, Bryant Vogel Where: [facility] [address] [place] [address]- Tuesday 9:00 AM EDT With: Butser REYNOLDS, Javier Garvin Where: [facility] Tuesday 8:00 AM EST With: Where: [facility] [place] [address] [place] [address]- New Follow Up Appointments after Discharge Follow Up with Nancy Grace When: 01/05/2024 07:45 AM EDT Where: [address] [place] [address]- Business (2) Follow Up with Ramos Euceda When: Comments: Call for followup appointment in [place] office Where: [place] [address]- Business (1) Medications What How Much When Why Instructions Next Dose New acetaminophen (acetaminophen 325 mg Tab) 2 Tablets By Mouth Every 6 hours as needed for Pain start as new med New cyanocobalamin (cyanocobalamin 1000 mcg Tab) 1 Tablets By Mouth Every day Pickup at [facility]/pharmacy [facility][id number] 12/31/23 9am New levofloxacin (Levaquin 500 mg Tab) 1 Tablets By Mouth Every 24 hours Duration: 10 Days Pickup at [facility]/pharmacy #[id number] start as new med today New lisinopril (lisinopril 40 mg Tab) 1 Tablets By Mouth Every day Pickup at [facility]/pharmacy #[id number] 12/31/23 9am New multivitamin (Therapeutic Multiple Vitamin Tab) See instructions Oral Daily Printed Prescription 12/31/23 9am Changed magnesium oxide (magnesium oxide 400 mg Tab) 1 Tablets By Mouth 2 times a day Pickup at [facility]/pharmacy #[id number] 12/30/23 9pm Unchanged amlodipine (amLODIPine 5 mg Tab) See instructions TAKE 1 TABLET DAILY resume Unchanged atorvastatin (atorvastatin 40 mg Tab) 1 Tablets By Mouth Every day 12/31/23 9am Unchanged famotidine (Pepcid 20 mg Tab) 1 Tablets By Mouth 2 times a day Hypomagnesemia HypokalemiaGastroesophageal reflux disease without esophagitis Dizziness BMI 37.0-37.9, adult Class 1 obesity due to excess calories in adult Smokeless tobacco use Former smoker resume Unchanged metformin (Glucophage XR 500 mg Ta (more content not included)... [facility]In[facility] Patient SummaryInpatient Patient Summary [address] [address] Patient Discharge Instructions PERSON INFORMATION [...] up: With: Address: When: [place] [address] Business (1) Comments: Call for followup appointment in [place] office With: Address: When: Nancy Grace [facility] [place] [address] Business (2) 01/05/2024 7:45 AM In the event that this physician does not participate in your insurance network, please consult with your insurance company to find a nearby participating provider. Type Location Start [facility] Follow Up w/TCM [facility]3] 01/05/2024 7:45 AM 01/05/2024 8:05 AM Confirmed URO Office Visit [facility] [place] 01/10/2024 8:15 AM 01/10/2024 8:30 AM Confirmed Cardiology Follow Up (FT) [facility] 01/13/2024 9:00 AM 01/13/2024 9:15 AM Confirmed Medicare Wellness Subsequent [facility]3] 07/09/2024 8:00 AM 07/09/2024 9:00 AM Confirmed Comment: ERIC Song ROBIN D, have received the attached patient education materials/instructions and have verbalized understanding: Patient Signature Date Clinican/Nurse Signature Date HERE ARE THE MEDICATION CHANGES THAT OCCURRED DURING YOUR HOSPITAL STAY New Medications [id number] [address] [facility] [id number], [phone] cyanocobalamin (cyanocobalamin 1000 mcg Tab) 1 Tablets By Mouth every day. Refills: 0. Last Dose: Next Dose: levofloxacin (Levaquin 500 mg Tab) 1 Tablets By Mouth every 24 hours for 10 Days. Refills: 0. Last Dose: Next Dose: lisinopril (lisinopril 40 mg Tab) 1 Tablets By Mouth every day. Refills: 0. Last Dose: Next Dose: Printed Prescriptions multivitamin (Therapeutic Multiple Vitamin Tab) Oral Daily. Refills: 0. Last Dose: Next Dose: Other Medications acetaminophen (acetaminophen 325 mg Tab) 2 Tablets By Mouth every 6 hours as needed Pain. Last Dose: Next Dose: Medications to Continue Taking That Have Changed [facility]/pharmacy #[id number], [address] [place], [place] [id number], [phone] START: magnesium oxide (magnesium oxide 400 mg Tab) 1 Tablets By Mouth 2 times a day. Refills: 0. Last Dose: Next Dose: STOP: magnesium oxide (magnesium oxide 400 mg Tab) 1 Tablets By Mouth every day. Refills: 0. Medications to Continue with No Changes Other Medications amlodipine (amLODIPine 5 mg Tab) TAKE 1 TABLET DAILY. Refills: 1. Last Dose: Next Dose: atorvastatin (atorvastatin 40 mg Tab) 1 Tablets By Mouth every day. Refills: 1. Last Dose: Next Dose: famotidine (Pepcid 20 mg Tab) 1 Tablets By Mouth 2 times a day. Refills: 0. Last Dose: Next Dose: metformin (Glucophage XR 500 mg Tab-ER) 2 Tablets By Mouth 2 times a day. Refills: 1. Last Dose: Next Dose: metoprolol (metoprolol 25 mg ER Tab) 1 Tablets By Mouth every day. Refills: 6. Last Dose: (more content not included)...[facility] HospitalIn[facility] Patient SummaryInpatient Patient Summary [place] [address] Patient Discharge Instructions PERSON INFORMATION Name: ALICJA [...] up: With: Address: When: Nancy Grace [address] [place] [address] Business (2) 01/05/2024 7:45 AM In the event that this physician does not participate in your insurance network, please consult with your insurance company to find a nearby participating provider. Type Location Start [facility] Follow Up w/TCM [facility] [place] 01/05/2024 7:45 AM 01/05/2024 8:05 AM Confirmed URO Office Visit [facility] [place] 01/10/2024 8:15 AM 01/10/2024 8:30 AM Confirmed Cardiology Follow Up (FT) [facility] [place] 01/13/2024 9:00 AM 01/13/2024 9:15 AM Confirmed Medicare Wellness Subsequent [facility] [place] 07/09/2024 8:00 AM 07/09/2024 9:00 AM Confirmed Comment: ERIC Song ROBIN D, have received the attached patient education materials/instructions and have verbalized understanding: Patient Signature Date Clinican/Nurse Signature Date HERE ARE THE MEDICATION CHANGES THAT OCCURRED DURING YOUR HOSPITAL STAY Medications to Continue with No Changes Other Medications amlodipine (amLODIPine 5 mg Tab) TAKE 1 TABLET DAILY. Refills: 1. Last Dose: Next Dose: aspirin (aspirin 81 mg Oral EC Tab) 1 Tablets By Mouth every day. Refills: 0. Last Dose: Next Dose: atorvastatin (atorvastatin 40 mg Tab) 1 Tablets By Mouth every day. Refills: 1. Last Dose: Next Dose: famotidine (Pepcid 20 mg Tab) 1 Tablets By Mouth 2 times a day. Refills: 0. Last Dose: Next Dose: glipiZIDE (glipiZIDE 5 mg Tab) 2 Tablets By Mouth 2 times a day. Refills: 1. Last Dose: Next Dose: hydrochlorothiazide-lisinopril (hydrochlorothiazide-lisinopril 12.5 mg-20 mg Tab) 1 Tablets By Mouth every day. Refills: 0. Last Dose: Next Dose: magnesium oxide (magnesium oxide 400 mg Tab) 1 Tablets By Mouth every day. Refills: 0. Last Dose: Next Dose: metformin (Glucophage XR 500 mg Tab-ER) 2 Tablets By Mouth 2 times a day. Refills: 1. Last Dose: Next Dose: metoprolol (metoprolol 25 mg ER Tab) 1 Tablets By Mouth every day. Refills: 6. Last Dose: Next Dose: Misc Prescription (Misc DME Prescription) Alcohol prep pads Use to test blood sugars daily Dx E11.9. Refills: 3. Last Dose: Next Dose: Misc Prescription (Misc DME Prescription) One Touch Ultra 2 glucose meter kit Use to tests sugars daily E11.9. Refills: 0. Last Dose: Next Dose: Misc Prescription (Misc DME Prescription) One touch ultra 2 test strips Use to tests sugars once a day Dx E11.9. Refills: 3. Last Dose: Next Dose: Misc Prescription (Misc DME Prescription) Soft click lancets Use to test blood sugars once a day Dx E11.9. Refills: 3. Last Dose: Next Dose: ondansetron (Zofran ODT 4 mg Tab-Dis) 1 Tablets By Mouth every 8 hours as needed Nausea/Vomiting. Refills: 0. Last Dose: Next Dose: potassium chloride (potassium chloride 10 mEq Cap-ER) TAKE 1 CAPSULE BY MOUTH EVERY DAY. (more content not included)...NormalTuscarawas HospitalLab Miscellaneous-LCon 68-05-5608Dird [id number] Interpretation [facility]aconess HospitalComment on above:Order Comment: Random sample, not 24hr collection UrineResult Comment: Corrected test codePerformed By: #### [id number] #### [facility] [address], [place] [address]Humdvurwz Laboratory TestingOrdered By: Dacia BAÑUELOS on 20-50-9687Rgbs [id number] 1Invalid Interpretation [facility] SendOutsSSComment on above:Result Comment: Corrected test codeTest Nameurine magInvalid Interpretation CodeBE[facility]ER [facility] SendOutsSSTSH With T4fr Reflexon [id number] Qn1.54 m[IU]/LNormal0.34-5.60Fisher Grace Medical CenterComment on above:Performed By: #### [id number] #### [facility] [address], [place] [address]KSMRBFBRTXwvpzna By: Lab ROPUser on 58-64-4538Nlrmiba [Mass/Vol]170 mg/tSCazu22 - 99 mg/dLBEAVER COUNTY MEM[facility] POC SubsectionPOC Device [id number] 1Invalid Interpretation CodeBEAVER COUNTY [facility] POC SubsectionPOC User [id number] 1Invalid Interpretation [facility] POC SubsectionPOC UsernameMILLER, ROKYAInvalid Interpretation CodeBEAVER COUNTY [facility] POC SubsectionCHEMISTRYOrdered By: SYSTEM SYSTEM on 82-34-7673Xrgtidnqo [Mass/Vol]1.7 mg/dLNormal1.3 - 2.4 mg/dLRemisol Chem Amphetamines Screen method >1000 ng/mL Ql (U)NEGATIVE 7 (12/29/23 3:43 PM)NormalNEGATIVERemisol ChemComment on above:Interpretive Data: Negative Cutoff: <1000 ng/mLBarbiturates Screen Ql (U)NEGATIVE 8 (12/29/23 3:43 PM)NormalNEGATIVERemisol ChemComment on above:Interpretive Data: Negative Cutoff: <200 ng/mLBenzodiazepines Ql (U)NEGATIVE 1 (12/29/23 3:43 PM)NormalNEGATIVERemisol ChemComment on above:Interpretive Data: Negative Cutoff: <200 ng/mLCannabinoids Screen Ql (U)NEGATIVE 6 (12/29/23 3:43 PM)NormalNEGATIVERemisol ChemComment on above:Interpretive Data: Negative Cutoff: <50 ng/mLCocaine Ql (U)NEGATIVE 2 (12/29/23 3:43 PM)NormalNEGATIVERemisol ChemComment on above:Interpretive Data: Negative Cutoff: <300 ng/mLOpiates Screen Ql (U)NEGATIVE 4 (12/29/23 3:43 PM)NormalNEGATIVERemisol ChemComment on above:Interpretive Data: Negative Cutoff: <300 ng/mLPhencyclidine Screen method >25 ng/mL Ql (U)NEGATIVE 5 (12/29/23 3:43 PM)NormalNEGATIVERemisol ChemComment on above:Interpretive Data: Negative Cutoff: <25 ng/mL These drug screen results are to be used for medical (i.e., treatment) purposes only. Unconfirmed drug screening results must not be used for non-medical purposes (e.g., employment testing, legal testing).U FentanylNEGATIVE 13 (12/29/23 3:43 PM)NormalNEGATIVERemisol ChemComment on above:Interpretive Data: Negative Cutoff: <5 ng/mL These drug screen results are to be used for medical (i.e., treatment) purposes only. Unconfirmed drug screening results must not be used for non-medical purposes (e.g., employment testing, legal testing).Ethanol Lvlmg/dLNormal <=11mg/dLRemisol ChemAnion gap [Moles/Vol]16 mmol/LNormal6 - 16 mEq/LRemisol ChemCalcium [Mass/Vol]9.8 mg/dLNormal8.9 - 11.1 mg/dLRemisol ChemChloride [Moles/Vol]103 mmol/RCrjrfz206 - 111 mmol/LRemisol ChemCO2 [Moles/Vol]23 mmol/L Xkoesr99 - 31 mmol/LRemisol ChemCobalamin (Vitamin B12) [Mass/Vol]156 pg/mL Jjdtgp78 - 1500 pg/mLRemisol ChemCreatinine [Mass/Vol]1.3 mg/dLNormal0.5 - 1.3 mg/dLRemisol YnwroBMG55 mL/min/1.73 x9Dayczj>=59mL/min/1.73 l4Fhwmeya Chem Ferritin [Mass/Vol]113 ng/kEJkokbl41 - 336 ng/mLRemisol ChemFolate [Mass/Vol] 16.3 ng/mLNormal>=6.7ng/mLRemisol ChemGlucose [Mass/Vol]148 mg/kDBfpdxl67 - 199 mg/dLRemisol ChemIron [Mass/Vol]113 ug/vMHnppkz55 - 153 mcg/dLRemisol ChemIron binding capacity [Mass/Vol]336 ug/jACmfbfp614 - 400 mcg/dLRemisol GpimGIF993 [iU]/cUyqnno30 - 218 Int._Unit/LRemisol ChemMagnesium [Mass/Vol]0.7 mg/dLInvalid Interpretation Code1.3 - 2.4 mg/dLRemisol ChemComment on above:Result Comment: Critical Result Verified by Previous Result Critical Result S_M.7 Called to and read back by: KELSIE CHAN at: 12/29/2023 14:47:41 by:AGPhosphate [Mass/Vol]2.8 mg/dLNormal1.9 - 4.6 mg/dL Remisol ChemPotassium [Moles/Vol]4.2 mmol/LNormal3.5 - 5.3 mmol/LRemisol Chem Sodium [Moles/Vol]138 mmol/JPhxlju701 - 145 mmol/LRemisol ChemTransferrin [Mass/Vol]240 mg/gQWjuoiv016 - 370 mg/dLRemisol ChemUrea nitrogen [Mass/Vol]19 mg/dLNormal5 - 21 mg/dLRemisol ChemUrea nitrogen/Creatinine [Mass ratio]15 mg/mg Ohtael23 - 20Remisol ChemHEMATOLOGYOrdered By: SYSTEM SYSTEM on 12-29-2023 Basophils/100 WBC (Bld)1.3 %Normal0.0 - 2.0 %Remisol HemeBasophils/Leukocytes Auto (Bld) [Pure # fraction]0.1 E9/LNormal0.0 - 0.2 E9/LRemisol HemeEosinophils (Bld) [#/Vol]0.2 E9/LNormal0.0 - 0.5 E9/LRemisol HemeEosinophils/100 WBC (Bld) 3.2 %Normal0.0 - 8.0 %Remisol HemeErythrocyte distribution width (RBC) [Ratio] 13.0 %Fvuwqe08.9 - 14.2 %Remisol HemeHematocrit (Bld) [Volume fraction]38.4 % Shmelx16.7 - 49.0 %Remisol HemeHemoglobin (Bld) [Mass/Vol]13.3 g/dLLow13.5 - 17.5 gm/dLRemisol HemeLymphocytes (Bld) [#/Vol]1.7 E9/LNormal1.0 - 4.0 E9/L Remisol HemeLymphocytes/100 WBC (Bld)24.1 %Gqkmht27.0 - 50.0 %Remisol HemeMCH (RBC) [Entitic mass]33.3 pmGcjcxa05.0 - 34.0 pgRemisol HemeMCHC (RBC) [Mass/Vol] 34.7 g/oLSclxdz35.4 - 36.0 gm/dLRemisol HemeMCV (RBC) [Entitic vol]96.2 fLNormal 80.0 - 100.0 fLRemisol HemeMonocytes (Bld) [#/Vol]0.7 E9/LNormal0.2 - 1.0 E9/L Remisol HemeMonocytes/100 WBC (Bld)10.6 %Normal4.0 - 14.0 %Remisol Heme Neutrophils (Bld) [#/Vol]4.2 E9/LNormal2.0 - 7.5 E9/LRemisol HemeNeutrophils/100 WBC (Bld)60.8 %Ucrjhv07.0 - 75.0 %Remisol BbeiErvlqboj268.0 E9/SUlfwoq373.0 - 500.0 E9/LRemisol HemePlatelet mean volume (Bld) [Entitic vol]7.2 fLNormal6.4 - 10.8 fLRemisol HemeRBC (Bld) [#/Vol]4.0 E12/LLow4.3 - 5.9 E12/LRemisol Heme Reticulocytes/100 RBC (Bld)1.4 %Normal0.5 - 2.2 %Remisol HemeWBC corrected for nucl RBC Auto (Bld) [#/Vol]6.9 E9/LNormal4.0 - 11.0 E9/LRemisol HemeLab Miscellaneous-LCon 41-63-9405Ihkj Nameurine magInvalid Interpretation [facility]aconess HospitalComment on above:Order Comment: Random sample, not 24hr collection UrinePerformed By: #### [id number] #### [facility] [address] [place], [place] [address]Mfqkzhnwuu - Microbiology and Antimicrobial susceptibility Ordered By: Amber Jeffries on 71-21-8573Taoeteyv identified Cx Nom (U)75,000 cfu/ml Streptococcus speciesFisher - Grace Medical CenterURINALYSISOrdered By: SYSTEM SYSTEM on 19-97-1159Exweuuny Auto Ql (U)1+ /HPFInvalid Interpretation Code Trace/HPFFTMC UA Auto SSBilirubin Ql (U)NegativeNormalNegativemg/dLFTMC UA Auto SSClarity (U)Clear (12/29/23 3:42 PM)NormalClearFTMC UA Auto SSColor (U)Light-Yellow 3 (12/29/23 3:42 PM)NormalYellowFTMC UA Auto SSComment on above:Interpretive Data: Microscopic readings are only performed on those samples that meet specific criteria set forth by [facility].Epithelial cells.squamous Auto (Urine sed) [#/Area]0-2 graded/HPFInvalid Interpretation CodeFTMC UA Auto SSGlucose Ql (U)Trace mg/dLInvalid Interpretation Code Negativemg/dLFTMC UA Auto SSHemoglobin Auto test strip (U) [Mass/Vol]Trace mg/dL Invalid Interpretation CodeNegativemg/dLFTMC UA Auto SSKetones Auto test strip Ql (U)NegativeNormalNegativemg/dLFTMC UA Auto SSLeukocyte esterase Auto test strip Ql (U)500 Maura/uL Maura/uLInvalid Interpretation CodeNegativeLeu/uLFTMC UA Auto SSMucus Auto Ql (U)NegativeNormalNegativegraded/LPFFTMC UA Auto SSNitrite Auto test strip Ql (U)NegativeNormalNegativemg/dLFTMC UA Auto SSpH (U)5.5 *NA* (12/29/23 3:42 PM)Invalid Interpretation Code5.0 - 9.0FTMC UA Auto SSProtein Ql (U)NegativeNormalNegativemg/dLFTMC UA Auto SSRBC Ql (U)0-3 graded/HPFNormal 0-3graded/HPFFTMC UA Auto SSSpecific gravity (U) [Rel density]1.009 *NA* (12/29/23 3:42 PM)Invalid Interpretation Code1.005 - 1.030[facility] UA Auto SS Urobilinogen (U) [Mass/Vol]NegativeNormalNegativemg/dLBEAVER COUNTY MEM[facility]IAL [facility] UA Auto SSWBC Auto (Urine sed) [#/Area]>75 graded/HPFInvalid Interpretation Code0-5graded/HPFBEAVER COUNTY [facility]IAL [facility] UA Auto SSURINALYSISOrdered By: Dacia BAÑUELOS on 12-37-3611HG Spec DescClean Catch (12/29/23 3:42 PM)NormalBEAVER COUNTY [facility] UA Auto SSAmbulatory Visit Summaryon 12-27-2023 Ambulatory Visit SummaryAmbulatory Visit Summary ERICALICJA Bharathi :1955 Visit Date:12/27/2023 Ambulatory Visit Instructions [...] mg Tab) glipiZIDE (glipiZIDE 5 mg Tab) hydrochlorothiazide-lisinopril (hydrochlorothiazide-lisinopril 12.5 mg-20 mg Tab) magnesium oxide (magnesium [...] REYNOLDS, Bryant Vogel Where: [facility] Interpretation [address] [place] [address]- \.br\ Someone Will Contact You Regarding These Appointments\.br\ [facility] External Ambulatory Referral, Nephrology, 12/27/23 8:10:00 EDT, HypomagnesemiaTuscarawas HospitalAmbulatory Visit SummaryAmbulatory Visit Summary ERICKOANTONIO Garvin :1955 Visit Date:12/27/2023 Ambulatory Visit Instructions [...] mg Tab) glipiZIDE (glipiZIDE 5 mg Tab) hydrochlorothiazide-lisinopril (hydrochlorothiazide-lisinopril 12.5 mg-20 mg Tab) magnesium oxide (magnesium oxide 400 mg Tab) metformin (Glucophage XR 500 mg Tab-ER) metoprolol (metoprolol 25 mg ER Tab) ondansetron (Zofran ODT 4 mg Tab-Dis) potassium chloride (potassium chloride 10 mEq Cap-ER) tamsulosin (tamsulosin 0.4 mg Cap) [Image Removed: STOP]Stop taking these medications omeprazole (omeprazole 40 mg Taurus-) Procedures Performed Arthroscopy, back surgery, Carpal tunnel [...] REYNOLDS, Bryant Vogel [facility] Interpretation [address] [place] [address]- \.br\ Someone Will Contact You Regarding These Appointments\.br\ [facility] External Ambulatory Referral, Nephrology, 12/27/23 8:10:00 EDT, HypomagnesemiaTuscarawas HospitalBMPon 89-95-0177[place] gap [Moles/Vol]14 mmol/LNormal6-16 [facility] HospitalComment on above:Performed By: #### [id number] #### [facility] [address], [place] [address]Xjjphjn [Mass/Vol]8.5 mg/dLLow8.9-11.1FHocking Valley Community HospitalComment on above:Performed By: #### [id number] #### [facility] [address], [place] [address]Strduqmx [Moles/Vol]104 mmol/JFlhaig169-003GnghglTuscarawas HospitalComment on above:Performed By: #### [id number] #### [facility] [address], [place] [address]AQ5 [Moles/Vol]24 mmol/VQlazrf28-20QaqhjaTuscarawas Hospital Comment on above:Performed By: #### [id number] #### [facility] [address], [place] [address]Iddjcizbcs [Mass/Vol]1.5 mg/dLHigh0.5-1.3FHocking Valley Community HospitalComment on above:Performed By: #### [id number] #### [facility] [address], [place] [address]Gyjnnmk [Mass/Vol]158 mg/pKKndptg52-849GhjzhjTuscarawas HospitalComment on above:Performed By: #### [id number] #### [facility] [address], [place] [address]Kfxaisvip [Moles/Vol]4.7 mmol/LNormal3.5-5.3FHocking Valley Community HospitalComment on above:Performed By: #### [id number] #### [facility] [address], [place] [address]Mqbjyp [Moles/Vol]137 mmol/NIiakvu970-843BsduchTuscarawas HospitalComment on above:Performed By: #### [id number] #### [facility] [address], [place] [address]Ynud nitrogen [Mass/Vol]19 mg/dLNormal5-21Tuscarawas HospitalComment on above:Performed By: #### [id number] #### [facility] [address], [place] [address]Xzxu nitrogen/Creatinine [Mass ratio]13 No GaxtvSsufin91-14 [facility]awas HospitalComment on above:Performed By: #### [id number] #### [facility] [address], [place] [address]YIMAXUECGIhzoffx By: SYSTEM SYSTEM on 93-68-0137Hyvjd gap [Moles/Vol]14 mmol/LNormal6 - 16 mEq/LRemisol ChemCalcium [Mass/Vol]8.5 mg/dLLow 8.9 - 11.1 mg/dLRemisol ChemChloride [Moles/Vol]104 mmol/CBfysfs253 - 111 mmol/L Remisol ChemCO2 [Moles/Vol]24 mmol/XAtcezy91 - 31 mmol/LRemisol ChemCreatinine [Mass/Vol]1.5 mg/dLHigh0.5 - 1.3 mg/dLRemisol QakflTHE12 mL/min/1.73 m2Low >=59mL/min/1.73 m9Dyulqut ChemGlucose [Mass/Vol]158 mg/xHVinxfg24 - 199 mg/dL Remisol ChemMagnesium [Mass/Vol]0.9 mg/dLInvalid Interpretation Code1.3 - 2.4 mg/dLRemisol ChemComment on above:Result Comment: Critical Result Verified by Repeat Analysis Critical Result S_M.9 Called to and read back by: DOCTOR DIEGO at: 12/27/2023 20:26:51 by:[id number] [Moles/Vol]4.7 mmol/LNormal3.5 - 5.3 mmol/LRemisol ChemSodium [Moles/Vol]137 mmol/ORrmync115 - 145 mmol/LRemisol ChemUrea nitrogen [Mass/Vol]19 mg/dLNormal5 - 21 mg/dLRemisol ChemUrea nitrogen/Creatinine [Mass ratio]13 mg/miIrzsqy32 - 20Remisol ChemFamily Medicine Office/Clinic Noteon 84-25-9023Eifpax Medicine Office/Clinic NoteFami Medicine Office/Clinic Note HPI Staff Alicja is a 68 year old male presenting for ER follow up ER followup: Hospital: [facility] Visit date: 12/23/23 Symptoms the patient dizziness, [...] encounter, evaluating and assessing the patient, documenting thevisit, and ordering appropriate follow-up work was 40 [...] data Procedure/Surgical History Ar (more content not included)...NormalTuscarawas HospitalComment on above:Result Comment: Electronically Signed By: Ruiz REYNOLDS, Nancy Thompson\.br\Date and Time Signed: 12/27/23 08:08 EDTMagnesiumon 65-58-5185Jsykwnoxe [Mass/Vol]0.9 mg/dLAbnormal1.3-2.4FHocking Valley Community HospitalComment on above:Result Comment: Critical Result Verified by Repeat Analysis Critical Result S_M.9 Called to and read back by: DOCTOR DIEGO at: 12/27/2023 20:26:51 by:[id number] By: #### [id number] #### [facility] [address], [place] [address]vKASij 23-19-4431hZZU91 mL/min/1.73 m2Low>=59Tuscarawas HospitalComment on above:Order Comment: Order added by Discern Expert. Performed By: #### [id number] #### [facility] [address], [place] [address]C Urineon 06-27-5881Rlayiyng identified Cx Nom (U)Microbiology PROCEDURE: Urine Culture [R1] SOURCE: U CleanCatch BODY SITE: COLLECTED DATE/TIME: 12/22/2023 08:35 EDT RECEIVED DATE/TIME: 12/22/2023 19:56 EDT START DATE/TIME: 12/22/2023 19:56 EDT FREE TEXT SOURCE: SHIRA WHATLEY, MARINO KEARNS CNP, MARINO Butler FINAL REPORTS Final Report [] Verified Date/Time: 12/24/2023 07:57 EDT 2,000 cfu/ml Mixed skin contaminants Performing Locations R1: This test was performed at: [facility], [address] [place] [address], [address] , , HndnpbPsqcloTrinity Health System West CampusComment on above:Performed By: #### [id number] #### [facility] [address] [place] [address]ZSKqa 86-65-1771Enpmqcg [Mass/Vol]4.4 g/dLNormal3.3-5.0Tuscarawas HospitalComment on above:Performed By: #### [id number] #### [address] [address]Tivmdgo/Globulin (S) [Mass conc ratio]1.5Fcozrj9.1-2.2FHocking Valley Community HospitalComment on above:Performed By: #### [id number] #### [facility] [address] [place] [address]XFH [Catalytic activity/Vol]62 Int._Unit/CVlxnqj37-12XehxtgTuscarawas HospitalComment on above:Performed By: #### [id number] #### [facility] [address] [place] [address]SRU No additional P-5'-P [Catalytic activity/Vol]22 Int._Unit/L Normal6-46T[facility]carawas HospitalComment on above:Performed By: #### [id number] #### [facility] [address] [place] [address]LVM [Catalytic activity/Vol]21 Int._Unit/LNormal5-43T[facility]aw[facility] HospitalComment on above:Performed By: #### [id number] #### [facility] [address] [place] [address]Qjhkogffq [Mass/Vol]0.9 mg/dLNormal0.0-1.1FHocking Valley Community HospitalComment on above:Performed By: #### [id number] #### [facility] [address] [place] [address]Xgwvvrhu (S) [Mass/Vol]2.9 g/dLNormal1.4-4.0T[facility]carawas HospitalComment on above:Performed By: #### [id number] #### [facility] [address] [place] [address]Oifgloy [Mass/Vol]7.3 g/dLNormal6.0-7.8T[facility]awas HospitalComment on above:Performed By: #### [id number] #### [facility] [address] [place] [address]Pxgiubvnlnu 94-56-5898Matpyxydm [Mass/Vol]mg/dLAbnormal1.3-2.4 [facility] HospitalComment on above:Result Comment: Critical Result S_MG:<0.5 Called to and read back by: ANGELLA GUERRERO at: 408:18:07 by:AG Critical Result Verified by Repeat AnalysisPerformed By: #### [id number] #### [facility] [address] [place] [address]TMM w/ Auto Diffon 48-63-2506Xwvokfqom/100 WBC (Bld)0.7 %Normal 0.0-2.0T[facility]carawas HospitalComment on above:Performed By: #### [id number] #### [facility] [address] [place] [address]Possgkpxs/Leukocytes Auto (Bld) [Pure # fraction]0.1 E9/LNormal 0.0-0.2FHocking Valley Community HospitalComment on above:Performed By: #### [id number] #### [facility] [address] [place] [address]Hmsgexmmtvt (Bld) [#/Vol]0.1 E9/LNormal0.0-0.5FHocking Valley Community HospitalComment on above:Performed By: #### [id number] #### [facility] [address] [place] [address]Yplabfeifuy/100 WBC (Bld)1.5 %Normal0.0-8.0T[facility]carawas HospitalComment on above:Performed By: #### [id number] #### [facility] [address] [place] [address]Clnvthgvojc distribution width (RBC) [Ratio]13.3 %Normal 10.9-14.2FHocking Valley Community HospitalComment on above:Performed By: #### [id number] #### [facility] [address] [place] [address]Grcqqsbylp (Bld) [Volume fraction]38.5 %Ilezms07.7-49.0T[facility]carawas HospitalComment on above:Performed By: #### [id number] #### [facility] [address] [place] [address]Cqcqdflyga (Bld) [Mass/Vol]13.2 g/dLLow13.5-17.5FHocking Valley Community HospitalComment on above:Performed By: #### [id number] #### [facility] [address] [place] [address]Qwzrrofpurz (Bld) [#/Vol]1.4 E9/LNormal1.0-4.0T[facility]as HospitalComment on above:Performed By: #### [id number] #### [facility] [address] [place] [address]Avonguqqblb/100 WBC (Bld)18.7 %Vtzquh56.0-50.0T[facility]as HospitalComment on above:Performed By: #### [id number] #### [facility] [address], [place] [address]FWS (RBC) [Entitic mass]33.5 kzNfndug55.0-34.0T[facility]awas HospitalComment on above:Performed By: #### [id number] #### [facility] [address] [place] [address]SSOV (RBC) [Mass/Vol]34.3 g/mHZnoidi64.4-36.0[facility] HospitalComment on above:Performed By: #### [id number] #### [facility] [address] [place] [address]FTN (RBC) [Entitic vol]97.5 pFQacxet02.0-100.0T[facility]as HospitalComment on above:Performed By: #### [id number] #### [facility] [address] [place] [address]Uqrnmrdjo (Bld) [#/Vol]0.6 E9/LNormal0.2-1.0[facility] HospitalComment on above:Performed By: #### [id number] #### [facility] [address] [place] [address]Ujzaehivigu (Bld) [#/Vol]5.3 E9/LNormal2.0-7.5FHocking Valley Community HospitalComment on above:Performed By: #### [id number] #### [facility] [address] [place] [address]Emqsleuiqyp/100 WBC (Bld)70.6 %Kxqafl55.0-75.0[facility]awas HospitalComment on above:Performed By: #### [id number] #### [facility] [address] [place] [address]Kjsvafhp899.0 E9/URmpilk135.0-500.0[facility] Comment on above:Performed By: #### [id number] #### [facility] [address] [place] [address]Qwwadifz mean volume (Bld) [Entitic vol]7.6 fLNormal6.4-10.8 [facility] HospitalComment on above:Performed By: #### [id number] #### [facility] [address], [place] [address]WDF (Bld) [#/Vol]4.0 E12/LLow4.3-5.9[facility] Comment on above:Performed By: #### [id number] #### [facility] [address], [place] [address]CXT corrected for nucl RBC Auto (Bld) [#/Vol]7.4 E9/LNormal 4.0-11.0[facility]awas HospitalComment on above:Performed By: #### [id number] #### [facility] [address], [place] [address]KIRMUGVRWBchnkqd By: Jaime Washburn on 67-97-3374Tqeyx gap [Moles/Vol]19 mmol/LHigh6 - 16 mEq/LRemisol ChemCalcium [Mass/Vol]8.2 mg/dLLow 8.9 - 11.1 mg/dLRemisol ChemChloride [Moles/Vol]100 mmol/SKew768 - 111 mmol/L Remisol ChemCO2 [Moles/Vol]23 mmol/EKpbknh45 - 31 mmol/LRemisol ChemCreatinine [Mass/Vol]1.6 mg/dLHigh0.5 - 1.3 mg/dLRemisol OkqgdXUZ74 mL/min/1.73 m2Low >=59mL/min/1.73 w2Ezlkvvz ChemGlucose [Mass/Vol]255 mg/oUNhdh22 - 199 mg/dL Remisol ChemPotassium [Moles/Vol]3.8 mmol/LNormal3.5 - 5.3 mmol/LRemisol Chem Sodium [Moles/Vol]138 mmol/DImdnfn382 - 145 mmol/LRemisol ChemUrea nitrogen [Mass/Vol]17 mg/dLNormal5 - 21 mg/dLRemisol ChemUrea nitrogen/Creatinine [Mass ratio]11 mg/taXwltuv20 - 20Remisol ChemCMPon 89-69-3620Iytev gap [Moles/Vol]19 mmol/LHigh6-16T[facility]awas HospitalComment on above:Performed By: #### [id number] #### [facility] [address], [place] [address]Cnsaesb [Mass/Vol]8.2 mg/dLLow8.9-11.1FHocking Valley Community HospitalComment on above:Performed By: #### [id number] #### [facility] [address], [place] [address]Plcfeizl [Moles/Vol]100 mmol/YCaj525-645BcwbryTuscarawas HospitalComment on above:Performed By: #### [id number] #### [facility] [address], [place] [address]PN6 [Moles/Vol]23 mmol/RQcevtj34-29ObkqbaTuscarawas Hospital Comment on above:Performed By: #### [id number] #### [facility] [address], [place] [address]Tesfgcherg [Mass/Vol]1.6 mg/dLHigh0.5-1.3FHocking Valley Community HospitalComment on above:Performed By: #### [id number] #### [facility] [address], [place] [address]Hwsthby [Mass/Vol]255 mg/eGZxey07-988HtbxqxTuscarawas HospitalComment on above:Performed By: #### [id number] #### [facility] [address], [place] [address]Ejjpeallr [Moles/Vol]3.8 mmol/LNormal3.5-5.3FHocking Valley Community HospitalComment on above:Performed By: #### [id number] #### [facility] [address], [place] [address]Yakmdr [Moles/Vol]138 mmol/MJfzdow770-133XwidbpTuscarawas HospitalComment on above:Performed By: #### [id number] #### [facility] [address], [place] [address]Iadv nitrogen [Mass/Vol]17 mg/dLNormal5-21Tuscarawas HospitalComment on above:Performed By: #### [id number] #### [facility] [address], [place] [address]Jvqt nitrogen/Creatinine [Mass ratio]11 No GpavmCivsnm39-61 [facility]awas HospitalComment on above:Performed By: #### [id number] #### [facility] [address], [place] [address] Office/Clinic Noteon [id number] Medicine Office/Clinic NoteHubbard [facility]/Clinic Note HPI Staff Alicja [...] daily, no pain or burning started the sameday he started feeling bad History of Present Illness 68 year old patient of Dr. Grace, presents for evaluation of dizziness, nausea, & vomiting that started four days ago. He states he had this in the past and it was due to a UTI. He reports he doesself-catheterization. He states he has been able to [...] day(s), # 14 tab(s), Refills(s) 0, Pharmacy: [facility], 172, cm, 12/22/23 7:41:00 EDT, Height/Length Dosing, 107.8, kg, :41:00 EDT, Weight Dosing Urine Culture 2. Vomiting (R11.10: Vomiting, unspecified) Continue Zofran as needed Diet as tolerated Encourage fluids Ordered: ciprofloxacin, 500 mg = 1 tab(s), Oral, q12hr, X 7 day(s), # 14 tab(s), Refills(s) 0, Pharmacy: [facility], 172, cm, 12/22/23 7:41:00 EDT, Height/Length Dosing, 107.8, kg, :41:00 EDT, Weight Dosing CBC w/ Auto Diff Comprehensive Metabolic Panel Lab Specimen Collect [id number] Magnesium Level Urnls Dip Stick Auto w/o Microscopy POC 91915 3. Former smoker (Z87.891: Personal history of nicotine dependence) Encouraged to continue as a non-smoker Ordered: Lab Specimen Collect 19201 Urnls Dip Stick Auto w/o Microscopy POC 89899 4. BMI 36.0-36.9,adult (Z68.36: Body mass index [BMI] 36.0-36.9, adult) The standard range for ages 18 and older is >=18.5 and < 25 kg/m2. Your BMI today was above this range, this falls in the overweight to obese category and there are medical benefits to weight loss. We can offer counselling, referral, and/or medical support in addressing this problem. Your BMIand weight management will be followed at subsequent visits. Ordered: Lab Specimen Collect 38568 Urnls Dip Stick Auto w/o Microscopy POC 66894 Orders: magnesium oxide, 400 mg = 1 tab(s), Oral, Daily, # 60 tab(s), Refills(s) 0, Pharmacy: [facility], 172, cm, 12/22/23 7:41:00 [...] disorder, recurrent, moderate Murmur (more content not included)...[facility] HospitalComment on above: Result Comment: Electronically Signed By: MARINO KEARNS CNP\.oliver\Date and Time Signed: 12/22/23 10:28 EDTHEMATOLOGYOrdered By: SYSTEM SYSTEM on 12-22-2023 Basophils/100 WBC (Bld)0.7 %Normal0.0 - 2.0 %Remisol HemeBasophils/Leukocytes Auto (Bld) [Pure # fraction]0.1 E9/LNormal0.0 - 0.2 E9/LRemisol HemeEosinophils (Bld) [#/Vol]0.1 E9/LNormal0.0 - 0.5 E9/LRemisol HemeEosinophils/100 WBC (Bld) 1.5 %Normal0.0 - 8.0 %Remisol HemeErythrocyte distribution width (RBC) [Ratio] 13.3 %Whzeuk80.9 - 14.2 %Remisol HemeHematocrit (Bld) [Volume fraction]38.5 % Jtkuno74.7 - 49.0 %Remisol HemeHemoglobin (Bld) [Mass/Vol]13.2 g/dLLow13.5 - 17.5 gm/dLRemisol HemeLymphocytes (Bld) [#/Vol]1.4 E9/LNormal1.0 - 4.0 E9/L Remisol HemeLymphocytes/100 WBC (Bld)18.7 %Lxmypd35.0 - 50.0 %Remisol HemeMCH (RBC) [Entitic mass]33.5 gcOoqvzh96.0 - 34.0 pgRemisol HemeMCHC (RBC) [Mass/Vol] 34.3 g/iYLflfqh33.4 - 36.0 gm/dLRemisol HemeMCV (RBC) [Entitic vol]97.5 fLNormal 80.0 - 100.0 fLRemisol HemeMonocytes (Bld) [#/Vol]0.6 E9/LNormal0.2 - 1.0 E9/L Remisol HemeMonocytes/100 WBC (Bld)8.5 %Normal4.0 - 14.0 %Remisol Heme Neutrophils (Bld) [#/Vol]5.3 E9/LNormal2.0 - 7.5 E9/LRemisol HemeNeutrophils/100 WBC (Bld)70.6 %Fraixt43.0 - 75.0 %Remisol CqsrJrtfrahz606.0 E9/MWjhcnx090.0 - 500.0 E9/LRemisol HemePlatelet mean volume (Bld) [Entitic vol]7.6 fLNormal6.4 - 10.8 fLRemisol HemeRBC (Bld) [#/Vol]4.0 E12/LLow4.3 - 5.9 E12/LRemisol HemeWBC corrected for nucl RBC Auto (Bld) [#/Vol]7.4 E9/LNormal4.0 - 11.0 E9/LRemisol HemeeGFRon 68-18-0373jLFK61 mL/min/1.73 m2Low>=59[facility] Comment on above:Order Comment: Order added by Discern Expert.Performed By: #### [id number] #### [facility] [address] [address]Wtvrvi Summary.on 77-37-5354Uwjxyp Summary. MHENLfcx55XAo5yVq+PGhlYWQ+VV9BWZGrJ34tfTAqaM3bQ2OYMBcPLkrxQBMKKMuQFtNtssYmMU2kgM NjZXJu [file] iJRtv3E3AEXrd (more content not included)...[facility] IntraOperative Documentson 14-61-1803MtbbcHjqeholzq Documents [id number]#1.00TIFBlanchard Valley Health System Bluffton HospitalConsent for Procedure/Surgeryon 59-29-7631Ukelpup for Procedure/Surgery [id number]#1.00TIFBlanchard Valley Health System Bluffton HospitalConsent for Treatmenton 60-37-1938Orgsvdy for Treatment [id number]#1.00[facility]burgInpatient Patient Summaryon 77-52-2434Auvrmcvik Patient Summary [place] [id number] Clinical Summary Person Information Name: ALICJA REYES Age: 68 Years : 1955 Sex: Male PCP: Nancy Grace MD Marital Status: Race: White Ethnicity: Non- or Language: Emirati Visit Id: Visit Reason: FEELING OF INCOMPLETE BLADDER EMPTYING AND BPH WITH LUTS Speciality: Acuity: Enc Type: Outpatient Med Service: Surgery Arrival: 11/28/2023 13:21:43 Discharge: Dispo Type: Address: [address] [place] [id number] Provider Notes: Diagnosis: Problems Active Hypertension Feeling [...] Mouth 2 times a day. Refills: 1. hydrochlorothiazide-lisinopril (hydrochlorothiazide-lisinopril 12.5 mg-20 mg Tab) 1 Tablets By Mouth every day. Refills: 0. magnesium oxide (magnesium oxide 400 mg Tab) 1 Tablets By Mouth every day. Refills: 0. metformin (Glucophage XR 500 mg Tab-ER) 2 Tablets By Mouth 2 times a day. Refills: 1. metoprolol (metoprolol 25 mg ER Tab) 1 Tablets By Mouth every day. Refills: 6. Misc Prescription ([facility] Prescription) Alcohol prep pads Use to [...] Follow up: With: Address: When: Bryant TAO [address] [place] [address], [address], [place] [address] [facility] (1) Comments: As we discussed, I [...] State Cardiology Follow Up (FT) [facility] [place] 12/16/2023 9:00 AM 12/16/2023 9:15 AM Confirmed URO Office Visit [facility] ZAIN Casiano 01/10/2024 8:15 AM 01/10/2024 8:30 AM Confirmed FM Medicare Wellness Subsequent [facility]3] 07/09/2024 8:00 AM 07/09/2024 (more content not included)...[facility] HospitalIntraOperative Documentson 91-52-7875HigwhWozeqjvgr Documents [id number]#1.00TIFFNoTrinity Health System West CampusMain OR Intraoperative Recordon 26-67-5672Fiie OR Intraoperative Record IntraOp Document Type FTURO Summary Primary Physician: Bryant TAO MD Finalized Date/Time: 11/28/23 15:54:06 Pt. Name: ALICJA REYESO.B./Sex: 1955 Male Med Rec #: [id number] Physician: Bryant TAO MD Financial #: [id number] Pt. Type: O Room/Bed: / Admit/Disch: 11/28/23 [...] Angie Vogel Role Performed Surgeon - Primary Automobile Spring Repairer - Primary Scrub - Primary Time In 11/28/23 15:39:00 11/28/23 15:39:00 11/28/23 15:39:00 Time Out 11/28/23 15:55:00 11/28/23 15:55:00 11/28/23 15:55:00 Procedure CYSTOSCOPY LOCAL(.) CYSTOSCOPY LOCAL(.) CYSTOSCOPY LOCAL(.) Comments Last Modified By: Yolande DAVID, Monica Lanier RN, Monica Lanier RN, Moinca Vogel 11/28/23 Demi Vogel 11/28/23 Demi Vogel [...] EMMY REYNOLDS, Bryant P, Verified (If Participants Yolande DAVID, Monica Applicable) [...] Signatures Signed By: Monica Lanier RN 11/28/23 15:54NoTrinity Health System West CampusMain OR Preoperative Recordon 22-17-4251Shsk OR Preoperative RecordHolding Area Document Type FTURO Summary Primary Physician: Bryant TAO MD Finalized Date/Time: 11/28/23 15:10:28 Pt. Name: ALICJA REYES /Sex: 1955 Male Med Rec #: [id number] Physician: Bryant TAO MD Financial #: [id number] Pt. Type: O Room/Bed: / Admit/Disch: 11/28/23 [...] or her perioperative plan of care The patient'sright to privacy is maintained Surgery Checklist FTURO Entry 1 Patient Birthday Procedure Surgical Consent, With Identification: Verification: Patient NPO after Midnight: n/a Limitations: up ad marlys Complaints of Pain: No Skin Integrity Intact, [place], Warm, & Dry Vitals - EU Blood Pressure 170/90 Pulse 77 bpm Respirations 80 br/min SPO2 Last Modified By: Ivania Hager LPN 11/28/23 15:10:23 Finalized By: Ivania Hager LPN Document Signatures Signed By: Ivania Hager LPN 11/28/23 15:10NoTrinity Health System West CampusOperative Reporton 64-89-2987Tedtjdlpf ReportPatient: ALICJA REYES Age: 68 years Sex: Male : 1955 Associated Diagnoses: None Author: Bryant TAO MD Procedure Operative Information Details: Date/ Time: 11/28/2023 15:54:00. Pre-Op Dx: Feeling of incomplete bladder emptying (FYI86-TM R39.14, Working, Medical), Hypotonic neurogenic bladder (XIL12-UU N31.9, Working, Medical), Urinary retention (SYP81-QT R33.9, Working, Medical), BPH with obstruction/lower urinary tract symptoms (TXH70-BN N40.1, Working, Medical). Post-Op Dx: Same. Anesthesia Type: Local. Procedure: Local Cystoscopy. Complications: None. Risks/Benefits/Informed Consent: Surgical risks, benefits, details of the [...] tumor, no stones, retained urine and fluid fromthe bladder function testing. . The ureteral orifices: Show efflux of clear urine. Devices Implanted: None. Removal: Cystoscope is removed, The patient tolerated it well. Postoperative Information Discharge: Patient is discharged home with antibiotic coverage, Follow up arranged, Discussed options. Discussed with him results of urodynamics and cystoscopy. Minimal prostatic obstruction and poorbladder function. 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 He will do a voiding diary. He continues to self cathat least 2-3 times per day. He needs to continue this as the majority of his urine output seems to be coming from the catheterizations. The voiding diary should settle light on this. He agrees with the plan..[facility] City HospitalComment on above: Result Comment: Electronically Signed By: Bryant TAO MD\.br\Date and Time Signed: 11/28/23 15:57 EDTOutpatient Surgery Discharge Instructionon 11-28-2023 Outpatient Surgery Discharge Instruction [id number]#1.00TIFFNoWayne Grace Medical CenterOutpatient Surgery Discharge Instruction [address] [address] Patient Discharge Instructions PERSON INFORMATION [...] 911 Follow up: With: Address: When: Bryant Rider [facility], [address], [address] [address] Business (1) Comments: As we discussed, [...] emptying the bladder intermittently. Type Location [facility] Cardiology Follow Up (FT) [facility] [place] 12/16/2023 9:00 AM 12/16/2023 9:15 AM Confirmed URO Office Visit [facility] ZAIN Casiano 01/10/2024 8:15 AM 01/10/2024 8:30 AM Confirmed Medicare Wellness Subsequent [facility]3] 07/09/2024 8:00 AM 07/09/2024 9:00 AM Confirmed [...] patient education materials/instructions and have verbalized understanding: May we do [...] to serve you. [facility] Notedalton 70-48-0744Dlymxt Medicine Office/Clinic NoteI Staff Alicja is a 68 year old [...] mg= 2 tab(s), Oral, BID, 1 refills hydrochlorothiazide-lisinopril 12.5 mg-20 mg Tab, 1 tab(s), Oral, [...] interferes with work or home: No. Drinks morethan intended: No. Others hurt by drinking: No. [...] Date Status Comments influe (more content not included)...[facility] HospitalComment on above:Result Comment: Electronically Signed By: Ruiz REYNOLDS, Nancy Cordoba.br\Date and Time Signed: 11/01/23 13:00 EDTPatient Educationon 43-21-0729Jmaralp Education Nutrition BMI for Adults What is BMI? Body mass index (BMI) is a number that is calculated from a person's weight and height. BMI can help estimate how much of a person's weight is composed of fat. BMI does not measure body fat directly.Rather, it is an alternative to procedures that [...] your height. Both height and weight are measured,and the BMI is calculated from those numbers. This can be done either in [place] ([place] or metric measurements. Note that charts and online BMI calculators are available to help you find your BMI quickly and easily without having to do these calculations yourself. To calculate your BMI in [place] ([place] measurements: 1. Measure your weight in [...] meters squared number. In this example: 70 ?3.1 = 22.6. This is your BMI. What [...] for Disease Control and Prevention: www.cdc.gov ? [place] Heart Association: www.heart.org ? National Heart, Lung, and Blood [place]: www.nhlbi.nih.gov Summary ? Body mass index (BMI) is a number that is calculated from a person's weight and height. ? BMI may help estimate how much of a person's weight is composed of fat. BMI can help identify those who may be at higher risk for certain medical problems. ? BMI can be measured using [place] measurements or metric measurements. ? BMI charts are used to identify whether you are underweight, normal weight, overweight, or obese. This information is not intended to replace advice given to you by your health care provider. Make sure you discuss any questions you have with your health care provider. Document Revised: 02/13/2020 Document Reviewed: 12/21/2019 [employer] Patient Education ? 2022 [email or web address] Consent for Treatmenton 32-56-0487Hrbnupj for Treatment [id number]#1.00TIFFNoTrinity Health System West CampusHeart and Vascular Office/Clinic Noteon 11-05-7631Zmyyn and Vascular Office/Clinic NoteChief Complaint 2 month follow up History of Present Illness Patient 68 male with past medical history of BPH, diabetes, GERD, hypertension. Patient comes in for 3-month follow-up Patient last saw Dr. Coulter and he increased amlodipine to 10 mg and added metoprolol 25 mgER daily. Patient reports that he also stopped taking lisinopril-hydrochlorothiazide since last visit. Patient's current BP meds include amlodipine 10 mg, metoprolol 25 mg ER daily and tamsulosin 0.4mg is likely affecting blood pressure some. Blood pressure in the office is better than previous visit, however still elevated at this time. Patient states that he is feeling well and denies chest pain, shortness of breath, lightheadedness/dizziness, heart palpitations. Patient does report that he [...] the office today. Will add back on lisinopril- hydrochlorothiazide at 20-12.5mg at this time. Was previously taking 40-25 mg, so we will go with a slightly lower dose. Continuewith amlodipine 10 mg and metoprolol ER 25 mg. We will continue to monitor her leg swelling and seeif it comes down with the addition of hydrochlorothiazide. Encourage patient to take blood pressureat home Orders: hydrochlorothiazide-lisinopril, 1 tab(s), Oral, Daily, 90 tab(s), Refill(s) 0, other reason (Rx) Follow-up with me in 2 months Portions of this record may have been created with voice recognition artificial intelligence software, specifically mydala, [employer] and or [employer]rise. Substitutions may have occurred due to the [...] mg= 2 tab(s), Oral, BID, 1 refills hydrochlorothiazide-lisinopril 12.5 mg-20 mg Tab, 1 tab(s), Oral, Daily Keflex 500 mg Cap, 500 mg= 1 cap(s), Oral, As Directed magnesium oxide 400 mg Tab, 400 m (more content not included)...[facility] HospitalComment on above:Result Comment: Electronically Signed By: Jacinto Ramirez PA-C\.oliver\Date and Time Signed: 10/19/23 08:50 EDTPhysician Order on [id number] [id number]#1.00TIFF [facility] HospitalPathology Noteon 17-95-5126Garjhgypg Note [id number]#1.00TIFFNormFairfield Medical CenterAmbulatory Visit Summaryon 05-65-6839Jcimzzzgdc Visit Summary ALICJA REYES :1955 Visit Date:09/22/2023 [...] mg Tab) glipiZIDE (glipiZIDE 5 mg Tab) hydrochlorothiazide-lisinopril (hydrochlorothiazide-lisinopril 12.5 mg-20 mg Tab) magnesium oxide (magnesium [...] Bryant TAO MD Where: [facility] [address] [address]- \.br\ You Need to Schedule the Following Appointments\.br\ Follow Up with Brynat TAO MD, URL When: \.br\ Where:\.br\ [facility] [address] [facility]\.br\ [place] [address]-\.br\ \.br\ Medications\.br\ What How Much When Instructions\.br\ Unchanged ciprofloxacin (Cipro 500 mg Tab) 1 Tablets By Mouth 2 times a day start 3 days prior to procedure \.br\ Unchanged tamsulosin (tamsulosin 0.4 mg Cap) 1 Capsules By Mouth Once a day (in the evening)\.br\ Unchanged amlodipine (Norvasc 5 mg Tab) 2 Tablets By Mouth Every dayContact prescribing physician if questions or concerns \.br\ [...] physician if questions or concerns \.br\ Unchanged hydrochlorothiazide-lisinopril (hydrochlorothiazide-lisinopril 12.5 mg-20 mg Tab) 2 Tablets By Mouth Every day Contact prescribing physician if questions or concerns \.br\ Unchanged magnesium oxide (magnesium oxide 400 mg Tab) 1 Tablets By Mouth Every day Contact prescribing physician if questions or concerns \.br\ Unchanged metformin (Glucophage XR 500 mg Tab-ER) 2 Tablets By Mouth 2 times a day Contact prescribingphysician if questions or concerns \.br\ Unchanged metoprolol (metoprolol 25 mg ER Tab) 1 Tablets By Mouth Every day Contact prescribing physician if questions or concerns \.br\ Unchanged Misc Prescription (Misc DME Prescription) See instructions Alcohol prep pads Use to test blood sugars daily Dx E11.9 Contact prescribing physician if questions or concerns \.br\ Unchanged Misc Prescription (MiscDME Prescription) See instructions One Touch Ultra 2 [...] blood sugars once a day Dx E11.9 Con tact prescribing physician if questions or concerns \.br\ [...] emptying\.br\ Gastroesophageal reflux disease without esophagitis\.br\ Hematuria\.br\ Hypercholesterolemia\.br\ Hypokalemia\.br\ Incomplete bladder emptying\.br\ Kidney stone\.br\ Major depressive disorder, recurrent, moderate\.br\ Murmur\.br\ PIN (prostatic intraepithelial neoplasia)\.br\ Primary hypertension\.br\ Prostate cancer screening\.br\ Recurrent UTI\.br\ Right flank pain\.br\ SOB (shortness of breath) on exertion\.br\ Tachycardia\.br\ Type 2 diabetes mellitus with hypercholesterolemia\.br\ Urinary retention\.br\ Patient Survey\.br\ You may receive a survey via text ore-mail asking about your office visit. Please share [...] the end (cystoscope). The cystoscope may be hardor flexible, depending on the goal of the [...] the urethra, such as a urinary stone.\.br\ ?\.br\ Painful urination.\.br\ ? \.br\ An abnormality in the bladder found during an intravenous pyelogram (IVP) or CT scan.\.br\ Cystoscopy may also be done to remove a sample of tissue to be examined under a microscope (biopsy).\.br\ Tell a health care provider about:\.br\ ? \.br\ Any allergies you have.\.br\ ? \.br\ All medicines you are taking, including vitamins, herbs, eye drops, creams, and vabu-uzg-mbjvrma medicines.\.br\ ? \.br\ Any problems you or [...] ? \.br\ Changing or stopping your regular medic bhavesh. This is especially important if you are taking diabetes medicines or blood thinners.\.br\ ? \.br\ Taking medicines such as aspirin and ibuprofen. These medicines can thin your blood. Do not take these medicines unless your health care provider tells you to take them.\.br\ ? \.br\ Taking qert-lqq-mlithgc medicines, vitamins, herbs, and supplements.\.br\ Tests\.br\ You may have an exam or testing, such as:\.br\ ? \.br\ X-rays of the bladder, urethra, or kidneys.\.br\ ? \.br\ CT scan of the abdomen or pelvis.\.br\ ? \.br\ Urine tests to check for signs of infection.\.br\ General instructions\.br\ ? \.br\ Follow instructions from your health care provider about eating or drinking restricti ons.\.br\ ? \.br\ Ask your health care provider what steps will be taken to help prevent infection.These steps may include:\.br\ ? \.br\ Washing skin with a germ-killing soap.\.br\ ? \.br\ Taking antibiotic medicine.\.br\ ? \.br\ Plan to have a responsible adult take you home from the hospital or clinic.\.br\ What happens during the procedure?\.br\ \.br\ ? \.br\ You will be given one or more of the following:\.br\ ? \.br\ A medicine to help you relax [facility] CenterUrology Office/Clinic Noteon 18-64-5455Ihuujvx Office/Clinic NoteChief Complaint F/U to review path report HPI Staff F/u to discuss pathology from [facility] Bx done 09/09/23. Dx: Elevated PSA, BPH with urinary obstruction and urinary retention CIC 2x daily- He didn't feel he needed to do it 3x daily PVR 656 Could not give a urine sample today, he CIC 5 a.m. this morning and last time he urinated was rightbefore he came here Dysuria: _denies Incomplete bladder [...] with voice recognition artificial intelligence software, specifically mydala, [employer] and or [employer]. Substitutions may have occurred due to the inherent limitations of voice recognition and artificial intelligence software. 1. Elevated PSA (R97.20: Elevated prostate specific antigen [PSA]) PSA: 06/22/11 - 0.41 11/09/18 - 0.41 01/10/20 - 0.36 02/03/21 - 0.44 07/13/22 - 0.43 04/04/23 - 6.1 MRI of prostate [place] [facility] [place] A focal area involving the anterior aspect of the R peripheral zoneat the level of the mid gland measuring [...] urinary tract symptoms) MRI of prostate 07/21/23 [facility] [place] Prostate volume 26 cc. Grossly distended [...] Feeling of incomplete bladder emptying) 06/04/23 - [facility] ER due to chills and dizziness [...] TID, UACS, BUN/CR, and (more content not included)...[facility] HospitalComment on above:Result Comment: Electronically Signed By: EMMY REYNOLDS, Bryant Vogel\.br\Date and Time Signed: 09/22/23 13:08 EDT\.br\Electronically Co-Signed By: Allison Hernandez\Date and Time Co-Signed: 09/22/23 13:03 EDTHeart and Vascular Office/Clinic Noteon [id number] and Vascular Office/Clinic NoteChief Complaint here for test results ECHO 08/02/23 [...] with voice recognition artificial intelligence software, specifically mydala, [employer] and or Fundrise. Substitutions may have occurred due to the inherent limitations of voice recognition and artificial intelligence software. ATTESTATION: Documentation services were performed after patient or guardian consented to allow [facility] to record this visit. SAMANTHA radiology specialist and provider reviewed before signing. SAMANTHA: [...] mg= 2 tab(s), Oral, BID, 1 refills hydrochlorothiazide-lisinopril 12.5 mg-20 mg Tab, 2 tab(s), Oral, [...] mEq= 1 cap(s), Oral (more content not included)...[facility] HospitalComment on above:Result Comment: Electronically Signed By: Yfn REYNOLDS, Troy Santamaria\.br\Date and Time Signed: 09/14/23 09:16 EDT\.br\Electronically Co-Signed By: Darling Keen\.br\Date and Time Co-Signed: 08/18/2417:28 EDTPathology Noteon 37-45-5000Ifaqemmvi Note [id number]#1.00TIFFZanesville City HospitalGlucose Glucometer (BldC) [Mass/Vol]Ordered By: Bryant Tao on 09-09-2023 Glucose [Mass/Vol]199 mg/dLOhio Valley HospitalComment on above: Random Glucose Reference Range is dependent on time and content of last meal. Glucose of more than 200 mg/dL in a nonstressed, ambulatory subject supports the diagnosis of Diabetes Mellitus.Operative Reporton [id number] Report [id number]#1.00TIFBlanchard Valley Health System Bluffton HospitalProgress Note-Physicianon 71-42-2151Mpscmanb Note-PhysicianPatient: ALICJA REYES Age: 68 years Sex: Male [...] as documented in history of present illness. Ear/Nose/Mouth/Throat: Negative except as documented in history of [...] diabetes mellitus with hypercholesterolemia / SNOMED CT 862349751 / Confirmed linked DM with HLD per OP CDI policy. Tachycardia / SNOMED CT 6819219 / Confirmed Right flank pain / SNOMED CT 809610372 / Confirmed Urinary retention / SNOMED CT 342931332 / Confirmed Diabetic nephropathy associated with type 2 diabetes mellitus / SNOMED CT 4878100066 / Confirmed Recurrent UTI / SNOMED CT 486102549 / Confirmed Major depressive disorder, recurrent, moderate / SNOMED CT 683191135 / Confirmed added per 06/10/2023 query response. Elevated PSA / SNOMED CT 6816277397 / Confirmed Prostate cancer screening / SNOMED CT 909204192 / Confirmed Kidney stone / SNOMED CT 060811955 / Confirmed Incomplete bladder emptying / SNOMED CT 545184391 / Confirmed Hypokalemia / SNOMED CT 96294987 / Confirmed Hypercholesterolemia / SNOMED CT 88767560 / Confirmed Murmur / SNOMED CT 918758908 / Confirmed Gastroesophageal reflux disease without esophagitis / ICD-10-CM K21.9 / Confirmed Fatigue / SNOMED CT 632728633 / Confirmed Primary hypertension / SNOMED CT 55908067 / Confirmed Edema / SNOMED CT 477884615 / Confirmed SOB (shortness of breath) on exertion / SNOMED CT 574742669 / Confirmed Dizziness / SNOMED CT 9867572404 / Confirmed Diastolic dysfunction / SNOMED CT 7437675 / Confirmed Hematuria / SNOMED CT 196605546 / Confirmed BPH with urinary obstruction / SNOMED CT 7541579924 / Confirmed Alcohol abuse / SNOMED CT 28884613 / Confirmed Canceled: UTI symptoms / SNOMED CT 171583337 Canceled: Type 2 diabetes mellitus without complication, without long-term current use of insulin /ICD-10-CM E11.9 Canceled: Tachycardia / SNOMED CT 7756826 Canceled: Hospital discharge follow-up / SNOMED CT 6041968213 Canceled: Obesity / SNOMED CT 5379908077 Canceled: Alcohol abuse, in remission / SNOMED CT 459798784 Canceled: Morbid obesity / SNOMED CT 571173278 added per 05/13/2023 query response. Canceled: Urinary frequency / SNOMED CT 489236016 Canceled: Disorder of prostate / SNOMED CT 32527944 Canceled: Alcohol abuse / SNOMED CT 75518711 Histories Procedure history: back surgery. Comments: 11/15/2012 8:03 Susan Howard RN lower back Arthroscopy right knee ([id number]). Comments: 11/15/2012 8:04 Susan Howard RN right hand and elbow surgery LEFT. Comments: 11/15/2012 8:04 Susan Howard RN left Carpal tunnel release LEFT ([id number]). Hand tendon repaired LEFT ([id number]). Comments: 01/13/2023 11:49 Ruthann Mathur LPN left thumb tendon Spinal fusion x2 ([id number]). Social History Social & Psychosocial Habits Alcohol [...] adequate air exchange. Cardiovascular: Regular rhythm. Plan [place] [employer] Anesthesiologists (ASA) physical status classification: Class III. Anesthetic Preoperative Plan: Anesthesia General.[facility] HospitalComment on above:Result Comment: Electronically Signed By: Abraham Pitts DO, Juan Nobles\Date and Time Signed: 09/02/23 09:03 EDTCHEMISTRYOrdered By: Lab ROPUser on 84-47-7106Umspxuo [Mass/Vol]156 mg/vHGxjj76 - 99 mg/dLBEAVER [facility] POC SubsectionPOC Device [id number] 1Invalid Interpretation CodeBEAVER COUNTY [facility] POC SubsectionPOC User [id number] 1Invalid Interpretation CodeBEAVER COUNTY [facility] POC Subsection POC UsernameAJOSE WINNInvalid Interpretation CodeBEAVER [facility] POC Subsection Capillary Glucose POCon 26-30-1511Pdptzfn [Mass/Vol]156 mg/iJXvhm42-42IhvfjtTuscarawas HospitalComment on above:Performed By: #### [id number] ####[facility] [address] [place], [place] [address]Xpuvyop for Procedure/Surgeryon 83-58-6057Gheeimy for Procedure/Surgery [id number]#1.00TIFBlanchard Valley Health System Bluffton HospitalConsent for Treatmenton 84-33-9016Ddrgjin for Treatment [id number]#1.00TIFBlanchard Valley Health System Bluffton HospitalH&P Updateon 09-01-2023H&P Update [id number]#1.00[facility] MiamisburgProgress Note-Physicianon 52-48-3966Ljcduinr Note-PhysicianPatient: ALICJA REYES Age: 68 years Sex: Male [...] 1,000 mg = 2 tab(s), Oral, BID hydrochlorothiazide-lisinopril 12.5 mg-20 mg Tab 2 tab(s), Oral, [...] the patient and his agree with the plan.NormalFisher Goodhue Medical CenterComment on above:Result Comment: Electronically Signed By: EMMY REYNOLDS, Bryant Howard\Date and Time Signed: 09/01/23 14:46 EDTPhysician Orderon 76-82-1840Qwgrhezta [id number]#1.00TIFFNormal Tuscarawas HospitalU Microalbon 82-72-9307Uasipvk DL <= 20 mg/L (U) [Mass/Vol]7.8 mg/dLHigh0.0-1.9Tuscarawas HospitalComment on above: Performed By: #### [id number] ####[facility] [address] [facility] Hospitaldylangarnet healthaddySA[place], [place] [address]Zpvneiojs Orderon 42-66-1989Rfvhpnicl Order [id number]#1.00TIFFNormalTuscarawas HospitalU Protein/Creat Ratioon 48-00-4975Uvrplsx/Creatinine (U) [Ratio]49.30 mg/gm CrNormal.00-200.00Tuscarawas HospitalComment on above:Performed By: #### [id number] ####[facility] [address] [place] [address], [id number] Hkpvkxjrcs38.0 mg/dLInvalid Interpretation [facility] HospitalComment on above:Performed By: #### [id number] ####[facility] [address] [place] [address], EF74251Jv Total Khvgkay10.7 mg/dLInvalid Interpretation [facility] HospitalComment on above: Performed By: #### [id number] ####[facility] [address] [place], [place]Slmhjwshuv Visit Summaryon 59-51-3089Wuxalyhbnh Visit Summary ALICJA REYES :1955 Visit Date:08/15/2023 [...] mg Tab) glipiZIDE (glipiZIDE 5 mg Tab) hydrochlorothiazide-lisinopril (hydrochlorothiazide-lisinopril 12.5 mg-20 mg Tab) magnesium oxide (magnesium [...] Yfn REYNOLDS, Troy Santamaria Where: [facility] [place] 2023 1:30 PM EDT With: Where: [facility] Tuesday 8:00 AM EST With: Where: [facility] [place]NoalTuscarawas HospitalBMPon 49-88-9700Cbbry gap [Moles/Vol]15 mmol/LNormal-16Tuscarawas HospitalComment on above:Performed By: #### [id number], [id number], [id number] #### [facility] [address], [place] [address]Ztaqyqe [Mass/Vol]8.3 mg/dLLow8.9-11.1FHocking Valley Community HospitalComment on above:Performed By: #### [id number], [id number], [id number] #### [facility] [address], [place] [address]Wdneaxnd [Moles/Vol]101 mmol/FOpxfeg092-140AonpgeTuscarawas HospitalComment on above:Performed By: #### [id number], [id number], 6001554 #### [facility] [address], [place] [address]QQ0 [Moles/Vol]27 mmol/FEkihln47-48JnnfefTuscarawas Hospital Comment on above:Performed By: #### [id number], [id number], [id number] #### [facility] [address], [place] [address]Viwskobtfo [Mass/Vol]1.4 mg/dLHigh0.5-1.3FHocking Valley Community HospitalComment on above:Performed By: #### [id number], [id number], 3150913 #### [facility] [address], [place] [address]Lvztuwq [Mass/Vol]258 mg/rWBioa98-116AdnqyiTuscarawas HospitalComment on above:Performed By: #### [id number], 05518374, [id number] #### [facility] [address], [place] [address]Gbfwrkyau [Moles/Vol]3.6 mmol/LNormal3.5-5.3FHocking Valley Community HospitalComment on above:Performed By: #### [id number], 57895443, 8071436 #### [facility] [address], [place] [address]Cdtqhu [Moles/Vol]139 mmol/ZLpcxqi894-790ZccmjzTuscarawas HospitalComment on above:Performed By: #### [id number], 15673295, 2044886 #### [facility] [address], [place] [address]Fgts nitrogen [Mass/Vol]16 mg/dLNormal5-21Tuscarawas HospitalComment on above:Performed By: #### [id number], [id number], 5935190 #### [facility] [address], [place] [address]Xtxg nitrogen/Creatinine [Mass ratio]11 No GbzcyTymdcv33-25 Tuscarawas HospitalComment on above:Performed By: #### [id number], [id number], 0480750 #### [facility] [address], [place] [address]POAELAZFWOgvfyik By: SYSTEM SYSTEM on 82-49-2373Uwtym gap [Moles/Vol]15 mmol/LNormal6 - 16 mEq/LRemisol ChemCalcium [Mass/Vol]8.3 mg/dLLow 8.9 - 11.1 mg/dLRemisol ChemChloride [Moles/Vol]101 mmol/MKspbgt091 - 111 mmol/L Remisol ChemCO2 [Moles/Vol]27 mmol/XMjbylq79 - 31 mmol/LRemisol ChemCreatinine [Mass/Vol]1.4 mg/dLHigh0.5 - 1.3 mg/dLRemisol PtombFMT70 mL/min/1.73 m2Low >=59mL/min/1.73 b6Zqbjnto ChemGlucose [Mass/Vol]258 mg/uMUchn08 - 199 mg/dL Remisol ChemPotassium [Moles/Vol]3.6 mmol/LNormal3.5 - 5.3 mmol/LRemisol Chem Sodium [Moles/Vol]139 mmol/FGudonf401 - 145 mmol/LRemisol ChemUrea nitrogen [Mass/Vol]16 mg/dLNormal5 - 21 mg/dLRemisol ChemUrea nitrogen/Creatinine [Mass ratio]11 mg/dlIqijge30 - 20Remisol ChemCHEMISTRYOrdered By: Irma Irwin on 63-35-5370WuS3w (Bld) [Mass fraction]7.4 %High<=5.9%[facility] ChemAutoSSFamily Medicine Office/Clinic Noteon 60-07-6909Xlyptp Medicine Office/Clinic NoteHPI Staff Lima is a 68 year old [...] ordering him a BP unit to [facility]. needs[facility]fran refilled to [facility] also also needs omeprazole [...] 90 tab(s), Refills(s) 0, [facility], 172, cm, 08/15/23 7:04:00 EDT, Height/Length Dosing, 107.2, kg, 08/15/23 7:04:00 EDT, Weight Dosing (more content not included)...NormalTuscarawas HospitalComment on above: Result Comment: Electronically Signed By: Ruiz REYNOLDS, Nancy Cordoba.br\Date and Time Signed: 08/15/23 07:18 YVMTfdA4usj 23-50-7605HeY8p (Bld) [Mass fraction]7.4 % High<=5.9Tuscarawas HospitalComment on above:Performed By: #### [id number], [id number], [id number] #### [facility] [address], [place] [address]Goncmau Educationon 49-72-8327Qowtspi EducationNutrition BMI for Adults What is BMI? Body mass index (BMI) is a number that is calculated from a person's weight and height. BMI can help estimate how much of a person's weight is composed of fat. BMI does not measure body fat directly.Rather, it is an alternative to procedures that [...] your height. Both height and weight are measured,and the BMI is calculated from those numbers. This can be done either in [place] ([place] or metric measurements. Note that charts and online BMI calculators are available to help you find your BMI quickly and easily without having to do these calculations yourself. To calculate your BMI in [place] ([place] measurements: 1. Measure your weight in [...] meters squared number. In this example: 70 ?3.1 = 22.6. This is your BMI. What [...] for Disease Control and Prevention: www.cdc.gov ? [place] Heart Association: www.heart.org ? National Heart, Lung, and Blood [place]: www.nhlbi.nih.gov Summary ? Body mass index (BMI) is a number that is calculated from a person's weight and height. ? BMI may help estimate how much of a person's weight is composed of fat. BMI can help identify those who may be at higher risk for certain medical problems. ? BMI can be measured using [place] measurements or metric measurements. ? BMI charts are used to identify whether you are underweight, normal weight, overweight, or obese. This information is not intended to replace advice given to you by your health care provider. Make sure you discuss any questions you have with your health care provider. Document Revised: 02/13/2020 Document Reviewed: 12/21/2019 [employer] Patient Education ? 2022 [email or web address]NormalTuscarawas Hospital eGFRon 42-90-0457kMGQ45 mL/min/1.73 m2Low>=59Tuscarawas HospitalComment on above:Order Comment: Order added by Discern Expert.Performed By: #### [id number], [id number], [id number] #### [facility] [address] [place] [address]RGHKDGXOICpzjsyg By: SYSTEM SYSTEM on 32-52-3599Ftvvd gap [Moles/Vol]13 mmol/LNormal6 - 16 mEq/LRemisol ChemCalcium [Mass/Vol]8.2 mg/dLLow 8.9 - 11.1 mg/dLRemisol ChemChloride [Moles/Vol]98 mmol/ERuu573 - 111 mmol/L Remisol ChemCO2 [Moles/Vol]32 mmol/LHigh21 - 31 mmol/LRemisol ChemCreatinine [Mass/Vol]1.2 mg/dLNormal0.5 - 1.3 mg/dLRemisol QmgegJQF67 mL/min/1.73 s7Phwokw >=59mL/min/1.73 e1Cawfkoo ChemGlucose [Mass/Vol]195 mg/kYVvxjtt48 - 199 mg/dL Remisol ChemPotassium [Moles/Vol]3.3 mmol/LLow3.5 - 5.3 mmol/LRemisol ChemSodium [Moles/Vol]140 mmol/OJkyqyc043 - 145 mmol/LRemisol ChemUrea nitrogen [Mass/Vol] 14 mg/dLNormal5 - 21 mg/dLRemisol ChemUrea nitrogen/Creatinine [Mass ratio]12 mg/kaPgnihg39 - 20Remisol ChemCOAGULATIONOrdered By: Mariya Colon on 27-95-9187xDIT Coag (PPP) [Time]32.1 jXuynoh97.1 - 36.5 second(s)[facility] Auto Coag Comment on above:Interpretive Data: Parameter 15 days - 4 weeks 1 - [...] the same coagulation reagent and instrumentation as [facility]. Currently there are no coagulation studies available worldwide for children to 14 days, andno normal ranges. Heparin therapeutic range (represented by Anti-Factor Xa activity of 0.2 - 0.4 U/mL) corresponds to PTT of 56.6 - 109.0 sec.INR Coag (PPP) [Relative time]1.17 {INR}Invalid Interpretation CodeBEAVER COUNTY [facility]OR[facility] Auto CoagComment on above:Interpretive Data: INR results are specifically intended to assess patients stabilized on long-term Anticoagulation therapy suggested INR s Less Intensive Anticoagulation 2.0 3.0 Conventional Range 3.0 4.5PT Coag (PPP) [Time]13.1 sHigh9.4 - 12.5 second(s)[facility] Auto CoagComment on above:Interpretive Data: 15 days - 4 weeks 1 - [...] the same coagulation reagent and instrumentation as [facility]. Currently there are no coagulation studies available worldwide for children to 14 days, andno normal ranges.HEMATOLOGYOrdered By: SYSTEM SYSTEM on 16-78-1256Vvhsoyldb/100 WBC (Bld)0.9 %Normal0.0 - 2.0 %Remisol HemeBasophils/Leukocytes Auto (Bld) [Pure # fraction]0.0 E9/LNormal0.0 - 0.2 E9/LRemisol HemeEosinophils (Bld) [#/Vol]0.2 E9/LNormal0.0 - 0.5 E9/LRemisol HemeEosinophils/100 WBC (Bld)3.1 %Normal0.0 - 8.0 %Remisol HemeErythrocyte distribution width (RBC) [Ratio]14.6 %High10.9 - 14.2 %Remisol HemeHematocrit (Bld) [Volume fraction]37.7 %Eczcta54.7 - 49.0 % Remisol HemeHemoglobin (Bld) [Mass/Vol]12.7 g/dLLow13.5 - 17.5 gm/dLRemisol Heme Lymphocytes (Bld) [#/Vol]1.3 E9/LNormal1.0 - 4.0 E9/LRemisol HemeLymphocytes/100 WBC (Bld)23.3 %Pyvtrt03.0 - 50.0 %Remisol HemeMCH (RBC) [Entitic mass]31.7 pg Zepemt48.0 - 34.0 pgRemisol HemeMCHC (RBC) [Mass/Vol]33.7 g/mXAczrgd95.4 - 36.0 gm/dLRemisol HemeMCV (RBC) [Entitic vol]94.0 aCSoohst75.0 - 100.0 fLRemisol Heme Monocytes (Bld) [#/Vol]0.6 E9/LNormal0.2 - 1.0 E9/LRemisol HemeMonocytes/100 WBC (Bld)10.0 %Normal4.0 - 14.0 %Remisol HemeNeutrophils (Bld) [#/Vol]3.6 E9/L Normal2.0 - 7.5 E9/LRemisol HemeNeutrophils/100 WBC (Bld)62.7 %Lkegpp03.0 - 75.0 %Remisol HemePlatelet mean volume (Bld) [Entitic vol]7.7 fLNormal6.4 - 10.8 fL Remisol HemePlatelets (Bld) [#/Vol]237.0 E9/VQarhnx406.0 - 500.0 E9/LRemisol HemeRBC (Bld) [#/Vol]4.0 E12/LLow4.3 - 5.9 E12/LRemisol HemeWBC corrected for nucl RBC Auto (Bld) [#/Vol]5.8 E9/LNormal4.0 - 11.0 E9/LRemisol HemeCreatinine (Bld) [Mass/Vol]Ordered By: Ramandeep Porter on 29-35-7624Utruobfjrj [Mass/Vol]1.2 mg/dL0.6-1.3FGalion Community HospitalComment on above:ER/ESD physician is notified/shown all ISTAT results.Critical values may be confirmed by laboratorytesting ifdeemed necessary by ER attending doctor.No Panel Information Ordered By: Ramandeep Porter on 92-56-0213Jpihjdt Estimated GFR (eGFR)> 60.0 [facility] HospitalCHEMISTRYOrdered By: SYSTEM SYSTEM on 44-55-8450Nbljp gap [Moles/Vol]15 mmol/LNormal6 - 16 mEq/LRemisol ChemCalcium [Mass/Vol]8.6 mg/dLLow8.9 - 11.1 mg/dLRemisol ChemChloride [Moles/Vol]100 mmol/L Uma667 - 111 mmol/LRemisol ChemCO2 [Moles/Vol]28 mmol/DUgbhfq15 - 31 mmol/L Remisol ChemCreatinine [Mass/Vol]1.3 mg/dLNormal0.5 - 1.3 mg/dLRemisol ChemeGFR 59 mL/min/1.73 a7Wdkzrx>=59mL/min/1.73 w2Uvdatpz ChemGlucose [Mass/Vol]284 mg/dL High55 - 199 mg/dLRemisol ChemPotassium [Moles/Vol]4.1 mmol/LNormal3.5 - 5.3 mmol/LRemisol ChemSodium [Moles/Vol]139 mmol/TAxmucn934 - 145 mmol/LRemisol Chem Urea nitrogen [Mass/Vol]11 mg/dLNormal5 - 21 mg/dLRemisol ChemUrea nitrogen/Creatinine [Mass ratio]8 mg/mgLow10 - 20Remisol ChemCHEMISTRYOrdered By: SYSTEM SYSTEM on 09-83-7650Dbvfc gap [Moles/Vol]15 mmol/LNormal6 - 16 mEq/L Remisol ChemCalcium [Mass/Vol]7.0 mg/dLInvalid Interpretation Code8.9 - 11.1 mg/dLRemisol ChemComment on above:Result Comment: Critical Result Verified by Repeat Analysis Critical Result S_CA.0 Called to and read back by: RETAIL BANKING MANAGER ELI at: 06/13/2023 18:59:55 by:ELI PAYEURChloride [Moles/Vol]100 mmol/VVxr224 - 111 mmol/LRemisol ChemCO2 [Moles/Vol]27 mmol/QVsrxrk71 - 31 mmol/LRemisol Chem Creatinine [Mass/Vol]1.3 mg/dLNormal0.5 - 1.3 mg/dLRemisol GvhbnWPX50 mL/min/1.73 v7Credfd>=59mL/min/1.73 j8Zmsywem ChemGlucose [Mass/Vol]219 mg/dL High55 - 199 mg/dLRemisol ChemPotassium [Moles/Vol]2.7 mmol/LInvalid Interpretation Code3.5 - 5.3 mmol/LRemisol ChemComment on above:Result Comment: Critical Result Verified by Repeat Analysis Critical Result S_K:2.7 Called to and read back by: DR. RETAIL BANKING MANAGER ELI at: 06/13/2023 18:59:55 by:ELI PAYEURSodium [Moles/Vol]139 mmol/DZgkzng049 - 145 mmol/LRemisol ChemUrea nitrogen [Mass/Vol]16 mg/dLNormal5 - 21 mg/dLRemisol Chem Urea nitrogen/Creatinine [Mass ratio]12 mg/rzObmvjo68 - 20Remisol ChemCHEMISTRY Ordered By: SYSTEM SYSTEM on 48-71-5232Pfjap gap [Moles/Vol]13 mmol/LNormal6 - 16 mEq/LRemisol ChemCalcium [Mass/Vol]8.6 mg/dLLow8.9 - 11.1 mg/dLRemisol Chem Chloride [Moles/Vol]97 mmol/DCma935 - 111 mmol/LRemisol ChemCO2 [Moles/Vol]33 mmol/LHigh21 - 31 mmol/LRemisol ChemCreatinine [Mass/Vol]1.5 mg/dLHigh0.5 - 1.3 mg/dLRemisol LsthsQXK59 mL/min/1.73 m2Low>=59mL/min/1.73 o9Yhagbuo ChemGlucose [Mass/Vol]201 mg/bTLfpz98 - 199 mg/dLRemisol ChemPotassium [Moles/Vol]3.3 mmol/L Low3.5 - 5.3 mmol/LRemisol ChemSodium [Moles/Vol]140 mmol/HLbuslt437 - 145 mmol/LRemisol ChemUrea nitrogen [Mass/Vol]25 mg/dLHigh5 - 21 mg/dLRemisol Chem Urea nitrogen/Creatinine [Mass ratio]17 mg/mgZolwpq98 - 20Remisol ChemCHEMISTRY Ordered By: SYSTEM SYSTEM on 58-68-9444Hqixkhi [Mass/Vol]3.4 g/dLNormal3.3 - 5.0 gm/dLFTMC RemisolAlbumin/Globulin [Mass ratio]0.8 {ratio}Low1.1 - 2.2FTMC RemisolALP [Catalytic activity/Vol]80 [iU]/jHyhlme65 - 98 Int._Unit/LFTMC RemisolALT No additional P-5'-P [Catalytic activity/Vol]19 [iU]/dNormal6 - 46 Int._Unit/LFTMC RemisolAnion gap [Moles/Vol]16 mmol/LNormal6 - 16 mEq/LFTMC RemisolAST [Catalytic activity/Vol]19 [iU]/dNormal5 - 43 Int._Unit/LFTMC Remisol Bilirubin [Mass/Vol]1.1 mg/dLNormal0.0 - 1.1 mg/dLFTMC RemisolCalcium [Mass/Vol] 8.6 mg/dLLow8.9 - 11.1 mg/dLFTMC RemisolChloride [Moles/Vol]94 mmol/DXbk001 - 111 mmol/LFTMC RemisolCO2 [Moles/Vol]31 mmol/DZfmtwi82 - 31 mmol/LFTMC Remisol Creatinine [Mass/Vol]1.3 mg/dLNormal0.5 - 1.3 mg/dLFTMC RemisolGFR/1.73 sq M.predicted among non-blacks MDRD (S/P/Bld) [Vol rate/Area]59 mL/min/1.73 m2 Normal>=59mL/min/1.73 m2FTMC Chem SComment on above:Interpretive Data: Chronic kidney disease could be indicated at eGFR's of less than 60 mL/min/1.73m2. Kidney failure is indicated at less than 15 mL/min/1.73m2.Globulin (S) [Mass/Vol]4.1 g/dLHigh1.4 - 4.0 gm/dLFTMC RemisolGlucose [Mass/Vol]337 mg/dLHigh 55 - 199 mg/dLFTMC RemisolComment on above:Interpretive Data: If this glucose result represents a fasting glucose, interpretation should referto the following reference range: 55-99 mg/dLPotassium [Moles/Vol]2.9 mmol/LLow3.5 - 5.3 mmol/L [facility] RemisolProtein [Mass/Vol]7.5 g/dLNormal6.0 - 7.8 gm/dLFTMC RemisolSodium [Moles/Vol]138 mmol/IIaexnv287 - 145 mmol/LFTMC RemisolUrea nitrogen [Mass/Vol] 16 mg/dLNormal5 - 21 mg/dLFTMC RemisolUrea nitrogen/Creatinine [Mass ratio]12 mg/qzUnxlpa02 - 20FT RemisolCHEMISTRYOrdered By: Isidro Leonard on 44-08-6808PoQ7a (Bld) [Mass fraction]9.6 %High<=5.9%[facility] ChemAutoSSCHEMISTRY Ordered By: SYSTEM SYSTEM on 16-93-2115Lxkcrxec specific Ag [Mass/Vol]6.1 ng/mL High0.1 - 3.5 ng/mLFT RemisolComment on above:Interpretive Data: The concentration of PSA determined by different manufacturers can vary due to di fferences in assay methods and reagent specificity. Values obtained from different assay methods cannot be used interchangeably. The methodology used for this result was chemiluminescence using [employer] PSA reagent.CHEMISTRYOrdered By: SYSTEM SYSTEM on 31-04-8960Ykeuvia [Mass/Vol]3.8 g/dLNormal3.3 - 5.0 gm/dLFTMC RemisolAlbumin/Globulin [Mass ratio]1.1 {ratio} Normal1.1 - 2.2FT[facility] RemisolALP [Catalytic activity/Vol]95 [iU]/lCqopmt37 - 98 Int._Unit/LFTMC RemisolALT No additional P-5'-P [Catalytic activity/Vol]20 [iU]/dNormal6 - 46 Int._Unit/LFTMC RemisolAnion gap [Moles/Vol]15 mmol/LNormal6 - 16 mEq/LFTMC RemisolAST [Catalytic activity/Vol]21 [iU]/dNormal5 - 43 Int._Unit/LFTMC RemisolBilirubin [Mass/Vol]0.8 mg/dLNormal0.0 - 1.1 mg/dLFTMC RemisolCalcium [Mass/Vol]8.6 mg/dLLow8.9 - 11.1 mg/dLFTMC RemisolChloride [Moles/Vol]98 mmol/UKmr676 - 111 mmol/LFTMC RemisolCholesterol [Mass/Vol]162 mg/xFDbtpij238 - 200 mg/dLFTMC RemisolCholesterol in HDL [Mass/Vol]40 mg/dL Invalid Interpretation CodeFTMC RemisolCholesterol in LDL [Mass/Vol]96 mg/dL Normal<=129mg/dLFTMC RemisolCholesterol in VLDL [Mass/Vol]23 mg/dLNormal7 - 40 mg/dLFTMC RemisolCO2 [Moles/Vol]27 mmol/QCnfwox14 - 31 mmol/LFTMC Remisol Creatinine [Mass/Vol]1.2 mg/dLNormal0.5 - 1.3 mg/dLFTMC RemisolGFR/1.73 sq M.predicted among non-blacks MDRD (S/P/Bld) [Vol rate/Area]66 mL/min/1.73 m2 Normal>=59mL/min/1.73 m2FT Chem SGlobulin (S) [Mass/Vol]3.6 g/dLNormal1.4 - 4.0 gm/dLFTMC RemisolGlucose [Mass/Vol]314 mg/eFLdim71 - 199 mg/dLFTMC Remisol Potassium [Moles/Vol]4.2 mmol/LNormal3.5 - 5.3 mmol/LFTMC RemisolProtein [Mass/Vol]7.4 g/dLNormal6.0 - 7.8 gm/dLFTMC RemisolSodium [Moles/Vol]136 mmol/L Catpje342 - 145 mmol/LFTMC RemisolTriglyceride [Mass/Vol]116 mg/dLNormal <=149mg/dLFTMC RemisolUrea nitrogen [Mass/Vol]15 mg/dLNormal5 - 21 mg/dLFTMC RemisolUrea nitrogen/Creatinine [Mass ratio]12 mg/miOortby53 - 20FTMC Remisol CHEMISTRYOrdered By: Isidro Leonard on 21-87-1653Wvcbdmh DL <= 20 mg/L (U) [Mass/Vol]35.7 microgram/mLHigh0.0 - 19.0 mcg/mLFTMC RemisolAlbumin Elph (U) [Mass fraction]9.6 mg/dLInvalid Interpretation CodeFTMC RemisolCreatinine (U) [Mass/Vol]43.6 mg/dLInvalid Interpretation CodeFTMC RemisolU Prot/Creat Ratio 220.20 mg/gm CrHigh0.00 - 200.00 mg/gm CrFTMC RemisolCHEMISTRYOrdered By: Noe Betts on 18-68-7556FzA5a (Bld) [Mass fraction]8.4 %High<=5.9%[facility] ChemAutoSS HEMATOLOGYOrdered By: [employer] SYSTEM on 72-48-4354Ozupespfq/100 WBC (Bld)0.6 % Normal0.0 - 2.0 %[facility] HemeAutoSSBasophils/Leukocytes Auto (Bld) [Pure # fraction]0.0 E9/LNormal0.0 - 0.2 E9/LFTMC HemeAutoSSEosinophils/100 WBC (Bld)1.8 %Normal0.0 - 8.0 %[facility] HemeAutoSSEosinophils/Leukocytes Auto (Bld) [Pure # fraction]0.1 E9/LNormal0.0 - 0.5 E9/LFTMC HemeAutoSSLymphocytes/100 WBC (Bld) 19.3 %Cllxjd98.0 - 50.0 %[facility] HemeAutoSSLymphocytes/Leukocytes Auto (Bld) [Pure # fraction]1.1 E9/LNormal1.0 - 4.0 E9/LFTMC HemeAutoSSMonocytes/100 WBC (Bld) 13.0 %Normal4.0 - 14.0 %[facility] HemeAutoSSMonocytes/Leukocytes Auto (Bld) [Pure # fraction]0.7 E9/LNormal0.2 - 1.0 E9/LFTMC HemeAutoSSNeutrophils/100 WBC (Bld) 65.3 %Tlwijq65.0 - 75.0 %[facility] HemeAutoSSNeutrophils/Leukocytes Auto (Bld) [Pure # fraction]3.6 E9/LNormal2.0 - 7.5 E9/LFTMC HemeAutoSSHEMATOLOGYOrdered By: Nichol Martinez on [id number] distribution width (RBC) [Ratio]12.8 % Uadjzc46.9 - 14.2 %[facility] HemeAutoSSHematocrit (Bld) [Volume fraction]36.6 %Low 37.7 - 49.0 %[facility] HemeAutoSSHemoglobin (Bld) [Mass/Vol]12.8 g/dLLow13.5 - 17.5 gm/dLFTMC HemeAutoSSMCH (RBC) [Entitic mass]33.7 uiKcspgr88.0 - 34.0 pgFCARL [facility] [place] HemeAutoSSMCHC (RBC) [Mass/Vol]34.9 g/bRBnxqya85.4 - 36.0 gm/dLFT HemeAutoSS MCV (RBC) [Entitic vol]96.4 bQLslafc04.0 - 100.0 fLBEAV[facility] [place] HemeAutoSSPlatelet mean volume (Bld) [Entitic vol]7.6 fLNormal6.4 - 10.8 fLBEAVER [facility] [place] HemeAutoSSPlatelets (Bld) [#/Vol]284.0 E9/JEmqmyh398.0 - 500.0 E9/LFCARL [facility] [place] HemeAutoSSRBC (Bld) [#/Vol] 3.8 E12/LLow4.3 - 5.9 E12/[facility] HemeAutoSSWBC corrected for nucl RBC Auto (Bld) [#/Vol]5.5 E9/LNormal4.0 - 11.0 E9/[facility] HemeAutoSSCBC AUTO DIFFon 07-13-2022 BASO #0.1 103/ulNormal0.0-0.1[facility] HospitalComment on above:Performed By: #### CBC #### [facility] [address] [place] [address] Dr. Pilo JansenBasophils/100 WBC (Bld)1.0 %Normal0.2-2.0[facility] Comment on above:Performed By: #### CBC #### [facility] [address] [place] [address] Dr. Pilo [place] #0.1 103/ulNormal0.0-0.7[facility] SystemComment on above: Performed By: #### CBC #### [facility] [address] [place] [address] Dr. Pilo Mayfieldosinophils/100 WBC (Bld)2.1 %Normal0.9-7.0[facility] Comment on above:Performed By: #### CBC #### [facility] [address] [place] [address] Dr. Yilan ChangErythrocyte distribution width (RBC) [Ratio]12.0 %Nbyeks67.0-15.0 [facility] SystemComment on above:Performed By: #### CBC #### [facility] [address] [place] [address] Dr. Pilo JansenHematocrit (Bld) [Volume fraction]40.7 %Critically low42.0-54.0 [facility] SystemComment on above:Performed By: #### CBC #### [facility] [address] [place] [address] Dr. Pilo JansenHemoglobin (Bld) [Mass/Vol]13.4 g/dLCritically low14.0-18.0The [facility] SystemComment on above:Performed By: #### CBC #### [facility] [address] [place] [address] Dr. Pilo Fabian #0.02 10e3/ulNormal0.00-0.03The [facility] SystemComment on above:Performed By: #### CBC #### [facility] [address] [place] [address] Dr. Pilo Fabian %0.4 %Normal0.0-0.5The [facility] SystemComment on above: Performed By: #### CBC #### [facility] [address] [place] [address] Dr. Pilo Talamantes #1.4 103/ulNormal1.2-3.8The [facility] SystemComment on above:Performed By: #### CBC #### [facility] [address] [place] [address] Dr. Pilo Hansenhocytes/100 WBC (Bld)26.1 %Snxvju42.5-60.0The [facility] SystemComment on above:Performed By: #### CBC #### [facility] [address] [place] [address] Dr. Pilo AguayoUAL DIFF REQNONormalThe [facility] SystemComment on above: Performed By: #### CBC #### [facility] [address] [place] [address] Dr. Pilo Queen (RBC) [Entitic mass]33.2 wmBecspo49.9-34.0The [facility] SystemComment on above:Performed By: #### CBC #### [facility] [address] [place] [address] Dr. Pilo Gutierrez (RBC) [Mass/Vol]32.9 g/gVKbyude39.9-35.2The [facility] SystemComment on above:Performed By: #### CBC #### [facility] [address] [place] [address] Dr. Pilo Gutierrez (RBC) [Entitic vol]100.7 fLCritically high80.0-94.0The [facility] SystemComment on above:Performed By: #### CBC #### [facility] [address] [place] [address] Dr. Pilo Woods #0.5 103/ulNormal0.3-0.8The [facility] SystemComment on above:Performed By: #### CBC #### [facility] [address] [place] [address] Dr. Pilo Cortesocytes/100 WBC (Bld)9.6 %Normal1.7-12.0The [facility] Comment on above:Performed By: #### CBC #### [facility] [address] [place] [address] Dr. Pilo Alejandre #3.2 103/ulNormal1.4-6.5The [facility] SystemComment on above:Performed By: #### CBC #### [facility] [address] [place] [address] Dr. Pilo Michelutrophils/100 WBC (Bld)60.8 %Bjvoru96.0-75.0The [facility] SystemComment on above:Performed By: #### CBC #### [facility] [address] [place] [address] Dr. Pilo Pedrazalet mean volume (Bld) [Entitic vol]9.3 fLCritically low 9.5-13.5The [facility] SystemComment on above:Performed By: #### CBC #### [facility] [address] [address] [address] Pilo JansenPLT204 103/juQmsexr864-890Zhz [facility] on above: Performed By: #### CBC #### [facility] [address] [address] [address] Pilo JansenRBC4.04 106/ulCritically low4.70-6.10The [facility] SystemComment on above:Performed By: #### CBC #### [facility] [address] [address] [address] Pilo JansenWBC5.2 103/ulNormal4.0-11.0The [facility] on above: Performed By: #### CBC #### [facility] [address] [place] [address] Dr. Pilo JansenGLYCOHEMOGLOBIN A1Con [id number] RECOMMENDATIONSEE [facility] HospitalCommunson [facility] on above:Result Comment: ADA RECOMMENDED LIMIT 4.0 - 6.0 ADA THERAPEUTIC TARGET < 7.0 ACTION SUGGESTED > 7.0Performed By: #### A1C #### [facility] [address] [place] [address] Dr. Pilo JansenGlucose [Mass/Vol]189 mg/dLNoProMedica Fostoria Community Hospital on above:Performed By: #### A1C #### [facility] [address] [place] [address] Dr. Pilo JansenHbA1c (Bld) [Mass fraction]8.2 %Critically high4.5-6.2The [facility] on above:Performed By: #### A1C #### [facility] [address] [address] [address] Pilo JansenLIPID PROFILEon [id number] RATIO NORMSEE [facility] CampusCommun[facility] on above:Result Comment: 3.3 - 4.4 LOW RISK 4.4 - 7.1 AVERAGE RISK 7.1 - 11.0 MODERATE RISK >11.0 HIGH RISKPerformed By: #### LIPID, CMP #### [facility] [address] [address] [address] Pilo JansenCholesterol [Mass/Vol]157 mg/dLNormal<=200The [facility] Comment on above:Performed By: #### LIPID, CMP #### [facility] [address] [address] [address] Pilo JansenCholesterol in HDL [Mass/Vol]53 mg/aZRtkuag04-28Jep [facility] SystemComment on above:Performed By: #### LIPID, CMP #### [facility] [address] [address] [address] Pilo JansenCholesterol in LDL [Mass/Vol]81.8 mg/dLNoWayne HospitalComment on above:Performed By: #### LIPID, CMP #### [facility] [address] [address] [address] Pilo Dwyerestercatarino.total/Cholesterol in HDL [Mass ratio]3.0 {ratio} NormalThe [facility] SystemComment on above:Performed By: #### LIPID, CMP #### [facility] [address] [place] [address] Dr. Pilo Magallanes NORMAL> or = 60 mg/dl - LOW CARDIOVASCULAR RISK <40 mg/dl - HIGH CARDIOVASCULAR RISKChildren's Hospital for RehabilitationComment on above:Performed By: #### LIPID, CMP #### [facility] [address] [place] [address] Dr. Pilo Jaime CALC NORMALSEE BELOWNoWayne HospitalComment on above:Result Comment: <100 mg/dl OPTIMAL 100 - 129 mg/dl NEAR OR ABOVE OPTIMAL 130 - 159 mg/dl BORDERLINE HIGH 160 - 189 mg/dl HIGH >190 mg/dl VERY HIGH Performed By: #### LIPID, CMP #### [facility] [address] [address] [address] Pilo JansenTriglyceride [Mass/Vol]111 mg/dLNormal<=150The [facility] Comment on above:Performed By: #### LIPID, CMP #### [facility] [address] [place] [address] Dr. Yilan ChangVLDL CALC22.2 mg/dLNormalThe [facility] SystemComment on above: Performed By: #### LIPID, CMP #### [facility] [address] [place] [address] Dr. Pilo Almanzar 14(COMP METB)on [id number] [Mass/Vol]3.9 g/dLNormal 3.4-5.0The [facility] SystemComment on above:Performed By: #### LIPID, CMP #### [facility] [address] [place] [address] Dr. Pilo JansenAlbumin/Globulin [Mass ratio]1.1 {ratio}NormalThe [facility] SystemComment on above:Performed By: #### LIPID, CMP #### [facility] [address] [place] [address] Dr. Pilo Medeiros [Catalytic activity/Vol]81 U/TFdqvvs26-147Kxx [facility] SystemComment on above:Performed By: #### LIPID, CMP #### [facility] [address] [place] [address] Dr. Pilo Thompson [Catalytic activity/Vol]28 U/MMztqef15-26Ntm [facility] SystemComment on above:Performed By: #### LIPID, CMP #### [facility] [address] [place] [address] Dr. Pilo Mercado gap [Moles/Vol]13.6 mmol/LNormalThe [facility] Comment on above:Performed By: #### LIPID, CMP #### [facility] [address] [place] [address] Dr. Pilo Clark [Catalytic activity/Vol]23 U/BAfxxxr79-27Dhv [facility] SystemComment on above:Performed By: #### LIPID, CMP #### [facility] [address] [place] [address] Dr. Pilo JansenBilirubin [Mass/Vol]0.8 mg/dLNormal0.2-1.0The [facility] Comment on above:Performed By: #### LIPID, CMP #### [facility] [address] [place] [address] Dr. Pilo JansenCalcium [Mass/Vol]9.3 mg/dLNormal8.5-10.1The [facility] Comment on above:Performed By: #### LIPID, CMP #### [facility] [address] [address] [address] Pilo JansenChloride [Moles/Vol]101 mmol/FEziyzu68-773Mwd [facility] Comment on above:Performed By: #### LIPID, CMP #### [facility] [address] [address] [address] Pilo JansenCO2 [Moles/Vol]29.7 mmol/LQvhhgo93.0-32.0The [facility] Comment on above:Performed By: #### LIPID, CMP #### [facility] [address] [place] [address] Dr. Pilo JansenCreatinine [Mass/Vol]0.86 mg/dLNormal0.70-1.30The [facility] SystemComment on above:Performed By: #### LIPID, CMP #### [facility] [address] [place] [address] Dr. Pilo MayfieldGFR-AF ANGUILLAN>60Normal>=60The [facility] SystemComment on above:Performed By: #### LIPID, CMP #### [facility] [address] [place] [address] Dr. Pilo MayfieldGFR-NON AF ANGUILLAN>60Normal>=60The [facility] SystemComment on above:Performed By: #### LIPID, CMP #### [facility] [address] [place] [address] Dr. Pilo JansenGlobulin (S) [Mass/Vol]3.7 g/dLNormalThe [facility] SystemComment on above:Performed By: #### LIPID, CMP #### [facility] [address] [address] [address] Pilo JansenGlucose [Mass/Vol]186 mg/dLCritically getd29-616Bmd [facility] SystemComment on above:Performed By: #### LIPID, CMP #### [facility] [address] [place] [address] Dr. Pilo JansenPotassium [Moles/Vol]4.3 mmol/LNormal3.5-5.1The [facility] Comment on above:Performed By: #### LIPID, CMP #### [facility] [address] [address] [address] Pilo JansenProtein [Mass/Vol]7.6 g/dLNormal6.4-8.2The [facility] Comment on above:Performed By: #### LIPID, CMP #### [facility] [address] [address] [address] Pilo JansenSodium [Moles/Vol]140 mmol/SOvievc805-112Fqt [facility] Comment on above:Performed By: #### LIPID, CMP #### [facility] [address] [address] [address] Pilo JansenUrea nitrogen [Mass/Vol]10.0 mg/dLNormal7.0-18.0The [facility] SystemComment on above:Performed By: #### LIPID, CMP #### [facility] [address] [address] [address] Pilo Souza nitrogen/Creatinine [Mass ratio]11.6 mg/mgNormalThe [facility] SystemComment on above:Performed By: #### LIPID, CMP #### [facility] [address] [address] [address] Pilo Jansen Vital Signs Date TimeVital SignValuePerforming [id number] 10:20-0500Body okbuul670.26 cmJessica Karma DO Work Phone: [facility]11-12-2025 10:20-0500 Body mass index (BMI) [Ratio]35.4 kg/i0Ewbbjqc Karma DO Work Phone: [facility]11-12-2025 10:20-0500 Body dmjysf403.86 kgJessoc Karma DO Work Phone: [facility]11-12-2025 10:20-0500 Diastolic blood xrrebkfs33 mm[Hg]Ivania Karma DO Work Phone: [phone] [place], [place] 3444811-12-2025 10:20-0500 Heart dcpn604 /minJessica Karma DO Work Phone: [phone] [place], [place] 3444811-12-2025 10:20-0500 Respiratory rate16 /minJessica Karma DO Work Phone: [phone])[address] [place], [place] 3444811-12-2025 10:20-0500 SaO2% (BldA) [Mass fraction]100 %Ivania Karma DO Work Phone: [phone])[address] [place], [place] 3444811-12-2025 10:20-0500 Systolic blood atguhrzp104 mm[Hg]Ivania Karma DO Work Phone: [phone])[address] [place], [place] 3444810-29-2025 09:43-0400 Body isxctr735.26 cmJessica Karma DO Work Phone: [phone])[address] [place], [place] 3444810-29-2025 09:43-0400 Body mass index (BMI) [Ratio]35.6 kg/y1Ifngkrx Karma DO Work Phone: [phone])[address] [place], [place] 3444810-29-2025 09:43-0400 Body yqtolhnulyt65.9 [degF]Ivania Karma DO Work Phone: [phone])[address] [place], [place] 3444810-29-2025 09:43-0400 Body nnottd409.31 kgJessica Karma DO Work Phone: [phone])[address] [place], [place] 3444810-29-2025 09:43-0400 Diastolic blood offgjvuk64 mm[Hg]Ivania Karma DO Work Phone: 1(419)[address] [place], [place] 3444810-29-2025 09:43-0400 Heart ktsc098 /minJessica Karma DO Work Phone: 1(419)[address] [place], [place] 3444810-29-2025 09:43-0400 Respiratory rate18 /minJessica Karma DO Work Phone: [phone])[address] [place], [place] 3444810-29-2025 09:43-0400 SaO2% (BldA) [Mass fraction]97 %Ivania Karma DO Work Phone: [phone])[address] [place], [place] 3444810-29-2025 09:43-0400 Systolic blood tzkubvnx088 mm[Hg]Ivania Karma DO Work Phone: [phone])[address] [place], [place] 3444810-13-2025 08:13-0400 Body qakzhm120.26 cmJessica Karma DO Work Phone: [phone])[address] [place], [place] 3444810-13-2025 08:13-0400 Body mass index (BMI) [Ratio]35.7 kg/e2Apyctld Karma DO Work Phone: [phone])[address] [place], [place] 3444810-13-2025 08:13-0400 Body npyhtx644.76 kgJessica Karma DO Work Phone: [phone])[address] [place], [place] 3444810-13-2025 08:13-0400 Diastolic blood wgyzyucu53 mm[Hg]Ivania Karma DO Work Phone: 1(419)[address] [place], [place] 3444810-13-2025 08:13-0400 Heart xatg902 /minJessica Karma DO Work Phone: [phone])[address] [place], [place] 3444810-13-2025 08:13-0400 Respiratory rate20 /minJessica Karma DO Work Phone: [phone])[address] [place], [place] 3444810-13-2025 08:13-0400 SaO2% (BldA) [Mass fraction]99 %Ivania Karma DO Work Phone: [phone] [place], [place] 3444810-13-2025 08:13-0400 Systolic blood lvmxidne498 mm[Hg]Ivania Karma DO Work Phone: [phone] [place], [place] 3444803-11-2025 14:01-0400 Body .3 cmMasrinath WORLEY Work Phone: [facility] CenterPzwraoeisl23-03-8665 14:01-0400Body mass index (BMI) [Ratio]37.36 kg/b7Aonjqmosrinath WORLEY Work Phone: [facility] CenterIldqhqoott88-61-5885 14:01-0400Body caemnf841.76 kgMasrinath WORLEY Work Phone: [facility] CenterIzdataooys15-24-8690 08:53-0400Blood Pressure LocationMikhradha AzunanDasient [facility]08-09-2024 08:53-0400 Diastolic blood mm[Hg]Javier Kirnus [address] [place], [place] 9955008-09-2024 08:53-0400Heart rate79 /minMiFIELDS CHINAail AzunanDasient [address] [place], [place] 9955008-09-2024 08:53-0400 Respiratory rate18 /minMiFIELDS CHINAail AzunanDasient [address] [place], [place] 9955008-09-2024 08:53-1748VyT9% (BldA) [Mass fraction]99 %Javier AzunanDasient [facility]08-09-2024 08:53-0400 Systolic blood btumneir482 mm[Hg]Javier Kirnus [facility]08-06-2024 08:19-0400Blood Pressure LocationLinusSecurSolutions [facility]08-06-2024 08:19-0400Diastolic blood zcpnuvfq53 mm[Hg][employer] [facility]08-06-2024 08:19-0400Heart rate94 /minThe Invisible [employer] [facility]08-06-2024 08:19-0400Systolic blood csxatuya123 mm[Hg][employer] [facility]07-26-2024 14:00-0400Hourly RoundingAlexander Marshall [address] [place], [place] 5356207-26-2024 14:00-0400 Promise to ReturnAlexander Marshall [address] [place], [place] 6056307-26-2024 13:00-0400 Hourly RoundingAlexander Marshall [address] [place], [place] 6056307-26-2024 13:00-0400 Promise to ReturnAlexander Marshall [address] [place], [place] 6056307-26-2024 12:34-0400 Diastolic blood wfomyvhb580 mm[Hg]Artemio Leroycker [address] [place], [place] 6056307-26-2024 12:34-0400 Systolic blood tacaaula244 mm[Hg]Artemio Leroycker [address] [place], [place] 6056307-26-2024 12:00-0400 Hourly RoundingAlexander Marshall [address] [place], [place] 6056307-26-2024 12:00-0400 Promise to ReturnAlexander Marshall [address] [place], [place] 6056307-26-2024 11:50-0400Heart agju818 /minAlexander Marshall [address] [place], [place] 6056307-26-2024 11:50-8208DvF6% (BldA) [Mass fraction]98 %Artemio Leroycker [address] [place], [place] 5356207-26-2024 11:45-0400Body dlddupapjex49.7 [degF]Artemio Leroycker [address] [place], [place] 6056307-26-2024 11:45-0400 Diastolic blood wlpvimqi493 mm[Hg]Artemio Olivares [address] [place], [place] 6056307-26-2024 11:45-0400Mean blood hlaiuxgv758 mm[Hg]Artemio Olivares [address] [place], [place] 6056307-26-2024 11:45-0400 Systolic blood mm[Hg]Artemio Olivares [address] [place], [place] 6056307-26-2024 08:00-0400Blood Pressure LocationAlexanddiego Marshall [address] [place], [place] 6056307-26-2024 08:00-0400Body sqcdatlarms31.6 [degF]Artemio Olivares [address] [place], [place] 6056307-26-2024 08:00-0400 Diastolic blood kdgytqjy52 mm[Hg]Artemio Olivares [address] [place], [place] 6056307-26-2024 08:00-0400Heart wrou205 /minAlexanddiego Marshall [address] [place], [place] 6056307-26-2024 08:00-0400 Systolic blood pgtogmip577 mm[Hg]Artemio Olivares [address] [place], [place] 6056307-26-2024 04:00-0400Heart rate74 /minAlexander Marshall [address] [place], [place] 6056307-26-2024 03:39-0400Heart rate75 /minAlexanddiego Marshall [address] [place], [place] 6056307-26-2024 03:39-5636DjX7% (BldA) [Mass fraction]97 %Artemio Olivares [address] [place], [place] 6056307-26-2024 03:39-0400Body .52 [degF]Artemio Leroycker [address]07-26-2024 03:39-0400Mean blood eogfxhlo867 mm[Hg]Artemio Leroycker [address]07-25-2024 21:20-0400Body psfvdgvxips10.16 [degF]Artemio Olivares [address] [place], [place] 6056307-25-2024 21:18-0400Mean blood ahxtbhaw948 mm[Hg]Artemio Olivares [address] [place], [place] 6056307-25-2024 20:00-0400Mean blood tdjcxrqy155 mm[Hg]Artemio Olivares [address] [place], [place] 6056307-25-2024 16:57-0400Blood Pressure LocationAlexajonesdiego Marshall [address] [place], [place] 6056307-25-2024 16:57-0400Body qciwczgroau97.42 [degF]Artemio Olivares [address] [place], [place] 6056307-25-2024 16:00-0400Mean blood qzgnauiq935 mm[Hg]Artemio Olivares [address] [place], [place] 6056307-25-2024 16:00-0400 Respiratory rate20 /minAlexander Marshall [address] [place], [place] 6056307-25-2024 15:00-0400Mean blood xhivsaug252 mm[Hg]Artemio Olivares [address] [place], [place] 6056307-25-2024 15:00-0400 Respiratory rate14 /minAlexander Marshall [address] [place], [place] 5356207-25-2024 14:07-0400 Respiratory rate23 /minAlexander Marshall [address] [place], [place] 6056307-25-2024 13:50-0400Body yefodefopaz28.88 [degF]Artemio Olivares [address] [place], [place] 6056307-25-2024 13:50-0400 Respiratory rate18 /minAlexander Marshall [facility]05-15-2024 08:26-0400 Diastolic blood iytqhgrr07 mm[Hg]Jacinto Ramirez [facility]05-15-2024 08:26-0400Mean blood neqmyami968 mm[Hg]Jacinto Ramirez [facility]05-15-2024 08:26-0400 Systolic blood mm[Hg]Jacinto Ramirez [facility]05-15-2024 08:12-0400Blood Pressure LocationJacinto Ramirez [facility]05-15-2024 08:12-0400 Diastolic blood ddrdadef88 mm[Hg]Jacinto Ramirez [facility]05-15-2024 08:12-0400Heart rate94 /minJacinto Ramirez [facility]05-15-2024 08:12-2367VgF2% (BldA) [Mass fraction]98 %Jacinto Ramirez [facility]05-15-2024 08:12-0400 Systolic blood pziyvbei461 mm[Hg]Jacinto Ramirez [facility]04-18-2024 12:35-0400Blood Pressure LocationBryant TAO [facility]04-18-2024 12:35-0400Body ybkoabptksf53.16 [degF]Bryant TAO [facility]04-18-2024 12:35-0400Diastolic blood opmqwpvb35 mm[Hg]Bryant TAO [facility] [place] [address]-18-2024 12:35-0400Heart rate84 /minBryant TAO [facility]04-18-2024 12:35-0400Systolic blood irxbreim898 mm[Hg]Bryant TAO [facility]04-05-2024 14:25-0400Diastolic blood gyhryrtp26 mm[Hg]MD Nancy Grace Work Phone: 1(413)874-[address] [place], [place] 5207404-05-2024 14:25-0400 Heart rate85 /minMD Nancy Grace Work Phone: 1(583)996-[address] [place], [place] 5207404-05-2024 14:25-0400 Respiratory rate16 /minMD Nancy Grace Work Phone: 1(939)668-[address] [place], [place] 5207404-05-2024 14:25-0400 SaO2% (BldA) [Mass fraction]99 %MD Nancy Grace Work Phone: 1(273)311-[address] [place], [place] 5207404-05-2024 14:25-0400 Systolic blood isefpsne969 mm[Hg]MD Nancy Grace Work Phone: 1(492)930-[address] [place], [place] 5207404-05-2024 13:40-0400 Inhaled oxygen flow rate8 L/minMD Nancy Grace Work Phone: 1(603)961-[address] [place], [place] 5207404-05-2024 12:40-0400 Body ovefvo363.26 cmMD Nancy Grace Work Phone: 4(913)425-[address] [place], [place] 5207404-05-2024 12:40-0400 Body mass index (BMI) [Ratio]34.1 kg/m2MD Nancy Grace Work Phone: 1(392)771-[address] [place], [place] 5207404-05-2024 12:40-0400 Body axlxky723.77 kgMD Nancy Grace Work Phone: 3(373)536-[address] [place], [place] 5207404-05-2024 11:49-0400 Body tkrfqjmigdy78.8 [degF]MD Nancy Grace Work Phone: 1(858)302-[address] [place], [place] 5207403-28-2024 11:42-0400 Diastolic blood yrubdyah12 mm[Hg]Bryant TAO [facility]03-28-2024 11:42-0400 Systolic blood bxjxdmah390 mm[Hg]Bryant TAO [facility]03-28-2024 11:40-0400 Diastolic blood npydqkgk33 mm[Hg]Bryant TAO [facility]03-28-2024 11:40-0400 Systolic blood aiocydol370 mm[Hg]Bryant TAO [facility]03-28-2024 11:08-0400 Diastolic blood mm[Hg]Bryant TAO [facility]03-28-2024 11:08-0400 Systolic blood dkxvqgye466 mm[Hg]Bryant TAO [facility]03-28-2024 10:50-0400Heart rate96 /minBryant TAO [facility]03-28-2024 10:23-0400Blood Pressure LocationBryant TAO [facility]03-28-2024 10:23-0400Heart afep455 /minBryant TAO [facility]03-28-2024 10:23-0400Mean blood puoadvkl683 mm[Hg]Bryant TAO [facility]03-28-2024 10:22-0400Heart qutg488 /minBryant TAO [facility]03-28-2024 10:22-6866NrS8% (BldA) [Mass fraction]98 %Bryant TAO [facility]03-28-2024 10:22-0400Blood Pressure LocationGreggerg COOK [facility]03-28-2024 10:22-0400Mean blood bfyykhvz448 mm[Hg]Bryant TAO [facility]03-28-2024 10:21-0400 Respiratory rate20 /minBryant TAO [facility]03-28-2024 10:21-0400Body ysqriesgiid40.7 [degF]Bryant TAO [facility]03-15-2024 11:59-0400 Diastolic blood tzhsbetp86 mm[Hg]Troy Warrenguilherme [facility]03-15-2024 11:59-0400Mean blood lxtqehss504 mm[Hg]Troy Warrenguilherme [facility]03-15-2024 11:59-0400 Systolic blood dsijtlti401 mm[Hg]Troy Warrenguilherme [facility]03-15-2024 11:52-0400 Diastolic blood awiiltnm157 mm[Hg]Troy Warrenguilherme [facility]03-15-2024 11:52-0400Heart uvpu757 /minNavinfani Brianaguilherme [facility]03-15-2024 11:52-7620JiM8% (BldA) [Mass fraction]97 %Troy Warrenguilherme [facility]03-15-2024 11:52-0400 Systolic blood hnvuhzfz520 mm[Hg]Troy Warrenguilherme [facility]03-07-2024 09:41-0500 Diastolic blood oybiqaxo26 mm[Hg]Bryant TAO [facility]03-07-2024 09:41-0500Heart rate84 /minBryant TAO [facility]03-07-2024 09:41-0500Mean blood odijaylo004 mm[Hg]Bryant TAO [facility]03-07-2024 09:41-0500 Systolic blood mm[Hg]Bryant TAO [facility] [facility] 09:41-0500Heart rate88 /minBryant TAO [facility]03[facility]07[facility]20[facility] 09:41-7593BwI3% (BldA) [Mass fraction]99 %Bryant TAO [facility]03-07-2024 09:40-0500 Diastolic blood cjgxnzxa85 mm[Hg]Bryant TAO [facility]03-07-2024 09:40-0500Mean blood oazepkzk036 mm[Hg]Bryant TAO [facility]03-07-2024 09:40-0500 Systolic blood hyvgbywr297 mm[Hg]Bryant TAO [facility]03-07-2024 09:40-0500 Respiratory rate20 /minBryant TAO [facility]02-21-2024 11:03-0500Blood Pressure LocationJENNIFER MINDI [facility]02-21-2024 11:03-0500Diastolic blood mm[Hg]RAMANDEEP MINDI [facility]02-21-2024 11:03-0500Heart rate84 /minJENNIFER MINDI [facility]02-21-2024 11:03-0500Systolic blood mm[Hg]RAMANDEEP PORTER [facility]02-15-2024 10:06-0500Body tcaoxl209.26 cmMD Nancy Grace Work Phone: [facility]02-15-2024 10:06-0500 Body olhztb351.04 kgMD Nancy Grace Work Phone: [facility]02-12-2024 06:45-0500 Body gizjaj752.26 cmMD Nancy Grace Work Phone: [facility]02-12-2024 06:45-0500 Body wtiaug555.04 kgMD Nancy Grace Work Phone: [facility]02-09-2024 13:58-0500 Diastolic blood eeuqgpga58 mm[Hg]Troy Coulter [facility]02-09-2024 13:58-0500Heart rate99 /minRyan Yfn [facility]02-09-2024 13:58-3429PeM9% (BldA) [Mass fraction]98 %Troy Coulter [facility]02-09-2024 13:58-0500 Systolic blood mm[Hg]Troy Coulter [facility]12-11-2023 07:57-0500 Diastolic blood mowyxkkn97 mm[Hg]Nancy Grace [facility]12-11-2023 07:57-0500Mean blood vhttrvqo043 mm[Hg]Nancy Grace [facility]12-11-2023 07:57-0500 Systolic blood opliggov411 mm[Hg]Nancy Grace [facility] Encounters Encounter DateEncounter TypeCare ProviderFacilityStart: 56-74-4212nthifekrux Nancy GraceFacility:[facility] BellevueStart: 73-29-6279cfomkfydbxWmtiqam P COOK Facility:EU [place]Start: 04-17-2025 End: 22-08-1576oawjjzvapwDdbrsst Karma DO Work Phone: [phone]-Xfzevgitm Health Neph SandStart: 04-17-2025 End: 67-88-0366Jbdmgvv encounter procedureFeranndo Dumont MD-[facility] Work Phone: Start: 14-67-3694wdumdnhqalCKC MARINO GRACEHMANN Facility:[facility] [place]vueStart: 04-03-2025 End: 32-49-0989Ssqikubs ReferredClara Rivera APRN-[facility] Work Phone: Start: 04-03-2025 End: 83-16-0701cuxwivgslzAevafhu Karma DO Work Phone: -[facility]deStart: 04-03-2025 End: 00-09-2625Asdmyhp encounter procedureClara Rivera RADIOLOGY TECHNOLOGIST-[facility] Work Phone: Start: 89-49-7034fcowgdznwqYegrpfv P COOKFacility:EU evueStart: 75-71-0918Qlg-patient / Non-visitJessica Karma DO-[facility] Work Phone: Start: 03-19-2025 End: 72-00-4801xxvbejsjtbRdjklnz P COOKFacility:EU [place]neyStart: 03-19-2025 End: 00-06-1103Nhyupwf encounter procedureBryant TAO [facility] Start: 03-18-2025 End: 49-27-6165qjoqztduvbQunrjxj Karma DO Work Phone: [facility] Work Phone: Start: 03-18-2025 End: 99-72-7495Ivvmioa encounter procedureJekierra Karma DO-[facility] [place] Work Phone: Start: 03-04-2025 End: 28-67-5275lqdxfxcuayGSXXMU A LEHMANNFacility:FTMCStart: 01-29-2025 End: 85-83-6712rhjwixgwydKGGZOU A LEHMANNFacility:FTMCStart: 01-29-2025 End: 42-31-3829rasblktxtzEIEEMQ A LEHMANNFacility:FT FM BellevueStart: 01-08-2025 End: 70-50-4461uteezsmcerFVO MARINO A LEHMANNFacility:FT FM BellevueStart: 11-14-2024 End: 53-72-4515Tkn Drop offSHELLY A SHIRA [facility] Start: 11-14-2024 End: 63-60-7466hayjxwebibYWHVYK A LEHMANNFacility:FTMCStart: 10-08-2024 ambulatorySHELLY LEHMANNFacility:FM WillardStart: 10-08-2024 End: 74-22-6701Ced Drop Erin Grace [facility] Start: 10-08-2024 End: 59-29-9339rutanttlaxEM Nancy GraceFacility:FTMCStart: 09-25-2024 End: 14-87-7400Zzqdcn flowsKaroline WORLEY Work Phone: noms FB ORTHOPAEDICSStart: 09-25-2024 End: 87-86-3734Gguiqo Cristhian WORLEY Work Phone: NOKV FB ORTHOPAEDICSStart: 09-25-2024 End: 82-20-1705Kuqjjc follow up visit related to original Oj WORLEY Work Phone: N[facility] FB ORTHOPAEDICSComment on above:S/P carpal tunnel release (Primary Dx)Start: 09-25-2024 End: 37-27-3459ynyztxzlawCJSGUEA J MEYERNot AvailableStart: 09-24-2024 End: 54-30-9823Azn Drop offJENNIFER E MINDI [facility] Start: 09-24-2024 End: 00-55-6286wmvsrqayxtZapakra P COOKFacility:EU BellevueStart: 09-11-2024 End: 35-40-5437Lfuevn Cristhian WORLEY Work Phone: NOWY FB ORTHOPAEDICSStart: 09-11-2024 End: 69-00-9876Ltepzx Cristhian WORLEY Work Phone: noms FB ORTHOPAEDICSStart: 09-11-2024 End: 26-67-4750Uregot follow up visit related to original Oj WORLEY Work Phone: NORF FB ORTHOPAEDICSComment on above:S/P carpal tunnel release (Primary Dx)Start: 09-11-2024 End: 99-74-9205tpjcdkobbrSXLCILJ J MEYERNot AvailableStart: 09-03-2024 End: 88-28-7210innvasndrfNQIFZNGS E PERRYFacility:EU BellevueStart: 08-28-2024 End: 82-10-1026Lfpxeeiip encounterJrMalgorzata Dillon DO Work Phone: noms SWS ORTHOStart: 08-22-2024 End: 54-76-0067Lbk Drop Erin Grace [facility] Start: 08-22-2024 End: 28-52-0711qcxfyqhlieMfzzzf E. RossFacility:FT FM BellevueStart: 08-21-2024 End: 09-34-6633hcmpzmwfhcWtviyu X OrzechFacility:EU [place]kyStart: 08-17-2024 End: 14-25-7385Kzd Drop offSbrian Grace [facility] Start: 08-17-2024 End: 84-09-6291wlcpbiivccGL Nancy GraceFacility:FT FM BellevueStart: 08-14-2024 End: 34-70-7247csgljehwroIKVLOKI J MEYERJ.W. [facility] HospitalStart: 58-93-3584Kcihidesa for other preprocedural examinationMATTJUSTIN SPARKSOhioHealth Shelby Hospitaltart: 08-14-2024 End: 50-43-7266Aievqqc encounter procedureMasrinath WORLEY Work Phone: NOVM FB ORTHOPAEDICSComment on above:Preop examination Start: 08-14-2024 End: 13-26-2431Hnlhbqhcbtvop examination doneMasrinath WORLEY Work Phone: NOMS HealthcareStart: 08-14-2024 End: 01-39-8237Zroubx flowsheetMasrinath WORLEY Work Phone: NOZZ FB ORTHOPAEDICSStart: 08-14-2024 End: 55-83-0700Jfgzej flowsheetChloe WORLEY Work Phone: noms FB ORTHOPAEDICSStart: 08-14-2024 End: 57-89-3279Dqoxnpxn Result EncounterChloe WORLEY Work Phone: NOEU External Department UnsolicitedStart: 08-14-2024 End: 70-76-3569ryrymdfizeWIIUJUH J MEYERNot AvailableStart: 08-09-2024 End: 98-96-8397Skqgxl OnlyChloe WORLEY Work Phone: [phone]-HDGP ATLASComment on above:Encounter for other preprocedural examinationStart: 08-09-2024 End: 05-66-6500Ueoaaed encounter statusMasrinath WORLEY Work Phone: [facility]St. [facility] SystemStart: 07-24-2024 End: 22-09-8040ewnnvzwnfiXoqzon X OrzechFacility:EU [place]kyStart: 07-24-2024 End: 90-84-8537Lhwbnnv encounter procedureAurora X Orzech [facility] Start: 07-18-2024 End: 58-31-7884Utkqzl flowsheetJr. Lauren Dillon DO Work Phone: NOVQ SWS ORTHOStart: 07-18-2024 End: 25-65-8671Yoxzns flowsheetJr. Lauren Dillon DO Work Phone: noms SWS ORTHOStart: 07-18-2024 End: 28-85-2462Sdznqu outpatient visit 25 minutesJr. Lauren Dillon DO Work Phone: noms SWS ORTHOComment on above:Carpal tunnel syndrome of right wrist (Primary Dx); Pain of right handStart: 07-18-2024 End: 42-04-1738hlehpnjtliRIMalgorzata, LAUREN DILLONNot AvailableStart: 07-16-2024 End: 78-54-1238Cts Drop offSbrian Grace [facility] Start: 07-16-2024 End: 25-54-7572xpoizwthdjImlkjv E. RossFacility:FT FM BellevueStart: 07-09-2024 End: 69-80-2356Rjp Drop offSbrian Grace [facility] Start: 07-09-2024 End: 36-65-0980kumdbkqawcBlhykv E. RossFacility:FTMCStart: 05-22-2024 End: 91-76-3988Zzplsa flowsheetChristopher Shyam DO Work Phone: noms NE NEUROStart: 05-22-2024 End: 80-89-0250Kfrpnv flowsheetChristopher Shyam DO Work Phone: noms NE NEUROStart: 05-22-2024 End: 14-93-7440Jelipwr encounter procedureChristopher Shyam DO Work Phone: noms NE NEUROComment on above:Carpal tunnel syndrome on both sides (Primary Dx); PolyneuropathyStart: 05-22-2024 End: 69-00-7973hifmezbddtQBIYPBOOUTE HASSETTNot AvailableStart: 05-18-2024 End: 80-80-3584vtxfadcjifACB MARINO ERICANNFacility:FT FM BellevueStart: 02-22-2024 End: 85-87-9348gfwvjkpxtyTpqpd AkkinaFacility:FTMCStart: 02-22-2024 End: 30-07-1446Qxqgkut encounter procedureSunil Berenicea [facility] Start: 01-30-2024 End: 52-66-2671Qlb Drop Erin Grace [facility] Start: 01-30-2024 End: 29-60-3228ttlylqfebzOohoey E. RossFacility:FT FM BellevueStart: 01-13-2024 End: 23-12-0264mbrgwbzgnnVOGD NONEFacility:FTMCStart: 01-13-2024 End: 23-22-1635Znoxbxc encounter procedureMiletha Goins [facility] Start: 01-11-2024 End: 96-23-3034Lqh Drop offSbrian Grace [facility] Start: 01-11-2024 End: 34-28-5045fnapdwmuqxFqlzve E. RossFacility:FTMCStart: 01-10-2024 End: 05-56-8255hitedtcpaoInmgibl P COOKFacility:EU [place]kyStart: 01-10-2024 End: 29-27-2268Batzuxe encounter procedureLinusgreg Jaspreet TAO [facility] Start: 01-05-2024 End: 72-32-3179dsemwddxkvVZ Nancy GraceFacility:FT BellevueStart: 01-02-2024 End: 18-63-0860njgrevbwauBjtmmw E. RossFacility:CD:[id number]: 12-29-2023 End: 84-24-3765Jogsysfbxa and management of inpatientSunil AkkinaFacility:[facility] Start: 82-68-0426Simzfwlay department patient Saadia NicoleMalgorzata CartagenaFacility:[facility] Start: 12-29-2023 End: 71-58-0367Spgsmwkjhh and management of inpatientAlexasalena Leroycker [facility] Start: 12-27-2023 End: 06-51-7663Cqh Drop rEin Grace [facility] Start: 12-27-2023 End: 13-43-5157ggbtsxxgxfNriatb E. RossFacility:FT FM BellevueStart: 12-22-2023 End: 98-69-9015Gpa Drop offSHELLY Luke KEARNS [facility] Start: 12-22-2023 End: 60-78-8612vsyrntwoewTRMKUU A LEHMANNFacility:FTMCStart: 11-28-2023 End: 44-36-4572ivnjsvnfkoUuvzity P COOKFacility:FTMCStart: 11-28-2023 End: 33-50-6975Fufbcat encounter procedureGregory P COOK [facility] Start: 10-19-2023 End: 82-06-6134ltfwxwaqkvZgyxdq A SteinFacility:FTMCStart: 10-19-2023 End: 33-65-2109Pslvmcj encounter procedureThomas A Ramirez [facility] Start: 09-22-2023 End: 50-44-6285zytgkyxdozLlsipur P COOKFacility:EU [place]kyStart: 09-22-2023 End: 74-77-0761Fenollz encounter procedureGregory P EMMY [facility] Start: 09-09-2023 End: 83-21-3743Ldmunwzca to same day surgery [facility] Nancy Grace Work Phone: [facility] Uk HealthcareStart: 09-09-2023 End: 41-27-0513bcwavguqqlVM Samuel E Ross Work Phone: [facility] Work Phone: Start: 09-09-2023 End: 70-32-1113uepbmebweiYtzstke P COOKFacility:CD:[id number]: 09-01-2023 End: 13-61-3210Vnkpmhnty to same day surgery centerGregory P COOK [facility] Start: 09-01-2023 End: 77-45-7385jpnrlykanjOpcvcse P COOKFacility:FTMCStart: 08-19-2023 End: 09-68-1045xipziwqvyjERKS NONEFacility:FTMCStart: 08-19-2023 End: 87-14-6911Pmygqew encounter procedureTroy Coulter [facility] Start: 08-15-2023 End: 81-43-5870Qom Drop offSbrian Grace [facility] Start: 08-15-2023 End: 49-71-8796lzhhohafkoGrbqxi E. RossFacility:FTMCStart: 08-11-2023 End: 07-04-7794Vflcbho encounter procedureLinusgreg TAO [facility] Start: 08-05-2023 End: 99-49-5977Bkxtdna encounter procedureTroy Coulter [facility] Start: 08-02-2023 End: 65-23-2312Vutgwhn encounter procedureSbrian Grace [facility] Start: 07-27-2023 End: 28-05-3846Djmitab encounter procedureRAMANDEEP JUNIORRY [facility] [facility] Start: 07-21-2023 End: 11-32-8109xuixiqrflfPJ Samuel E Ross Work Phone: [facility] Work Phone: Start: 07-21-2023 End: 17-07-4131Lracoud encounter Cody Grace Work Phone: [facility] [place] Work Phone: start: 07-18-2023 End: 52-52-3324bqcnjwczjmTJ Samuel E Ross Work Phone: [facility] Work Phone: Start: 07-18-2023 End: 18-28-5991Rbtnfhm encounter procedureMD Nancy Grace Work Phone: [facility] [place] Work Phone: Start: 07-15-2023 End: 29-26-5972Vdwcftp encounter Hortencia Coulter [facility] Start: 06-28-2023 End: 57-59-1313Rfm Drop offSbrian Grace [facility] Start: 06-23-2023 End: 06-71-0736Fvgdoaz encounter procedureManolo ALLEN [facility] start: 06-22-2023 End: 31-82-8188Heeieqn encounter procedureJENNIFER E MINDI [facility] start: 06-21-2023 End: 52-49-5393Jswmngg encounter procedureJENNIFER E MINDI [facility] start: 06-13-2023 End: 24-46-6949Whz Drop offSbrian Grace [facility] Start: 05-27-2023 End: 68-19-2458Kqj Drop offChristy Mulligan [facility] Start: 05-26-2023 End: 45-36-8723Cas Drop offSbrian Grace [facility] Start: 05-18-2023 End: 63-66-1090Qny-admission assessmentSbrian Grace [facility] Start: 05-16-2023 End: 18-65-6636Clh Drop offSbrian Grace [facility] Start: 04-04-2023 End: 03-24-7780Xdp Drop offJodi L Ese [facility] Start: 04-04-2023 End: 39-77-5896Rsg Drop offJodi L Ese [facility] Start: 01-20-2023 End: 31-59-6929Aqx Drop offSbrian Grace [facility] Start: 07-13-2022 End: 19-99-4170mgeykcgbqxSV TYRESE MCGRATHFacility:H1 Procedures DateProcedureProcedure DetailPerforming ClinicianStart: 60-11-4851Ugmom culture Ivania Vale DO Work Phone: Start: 84-13-0768Tmjvlmopyvyml of median nerveSMICHAEL KEARNS Start: 16-16-1862Evylchrwvnygf of median nerveSbrian Grace Start: 56-71-6227Waapr metabolic panel calcium total Chloe WORLEY Work Phone: Start: 05-22-2024 End: 20-47-4404Ccgugb emg ea extremty w/paraspinl area completeChristopher Shyam DO Work Phone: Start: 40-34-1271OI (TRUS) Prostate Biopsy w/Ultrasound (Not Applicable)MD Nancy Grace Work Phone: Start: 97-82-5149DP prostate wo/w conMD Nancy Grace Work Phone: Start: 22-91-9768ROQ screeningDR TYRESE MCGRATHComment on above:Performed By: #### PSAD #### [facility] [address] [place] [address] Dr. Pilo RutherfordNancy Grace Comment on above:rightArthroscopyBryant TAO Comment on above:rightback surgery 2Sbrian Grace Comment on above:lower backColonoscopyMikhail Theresen Comment on above:years ago-- sDecompression of median nerveSbrian Ruiz Decompression of median nerveBryant TAO hand and elbow surgery 3Sbrian Grace Comment on above:lefthand and elbow surgery LEFT 3 Bryant TAO Comment on above:lefthand and elbow surgery LEFT 4 Javier Theresen Comment on above:leftHand tendon repairedNancy Grace Comment on above:left thumb tendonHand tendon repaired Bryant TAO Comment on above:left thumb tendonHistory of decompression of median nerveS/P carpal tunnel releaseMattjustin WORLEY Work Phone: History of decompression of median nerveS/P carpal tunnel releaseChloe WORLEY Work Phone: Spinal arthrodesisJENNRAMON PORTER Spinal arthrodesisGreggreg TAO Plan of Treatment DateCare ActivityDetailAuthorStart: 41-59-3904Ydoyc cultureMount St. Mary Hospitaltart: 90-58-8349Pgirzmzp identified in Urine by CultureUrine [facility] Centertart: 51-96-6273Kqrjvus referral [facility] Work Phone: Start: 09-25-2024 End: 85-76-2137Vjsslwa encounter procedureNOMS FB ORTHOPAEDICSComment on above: S/P carpal tunnel release (Primary Dx)Start: 09-11-2024 End: 91-72-0150Epihrpp encounter procedureNOMS FB ORTHOPAEDICSComment on above: S/P carpal tunnel release (Primary Dx)Start: 08-14-2024 End: 95-58-3371Mmjkild encounter procedureNOMS FB ORTHOPAEDICSComment on above: Preop examinationStart: 08-09-2024 End: 15-13-5836Svwan metabolic 1998 panel - Serum or PlasmaBasic metabolic panel Lab Routine Preop examination Expected: 08/09/2024 (Approximate), Expires: 11/2025[facility] Work Phone: Comment on above:Expected: 08/09/2024 (Approximate), Expires: 08/09/2025Start: 08-09-2024 End: 83-70-6929Sccgd metabolic 2000 panel - Serum or PlasmaBasic Metabolic Panel Lab Routine Encounter for other preprocedural examination Expected: 08/09/2024, Expires: 08/09/2025[facility] Work Phone: Comment on above:Expected: 08/09/2024, Expires: 08/09/2025Start: 07-18-2024 End: 72-20-8615Mkswyzj encounter ibleziuic39/12/2025 8:30 AM EST Office Visit [facility] [address] [place] [address] Jr. Lauren Dillon, DO [address] [place] [address] ArrivedNOMS SHEPHERD ORTHOComment on above: ArrivedStart: 05-22-2024 End: 34-26-3906Iapsqbx encounter aregkaanp26/17/2024 8:30 AM EST Procedure Visit [facility] [address] [place] [address] Carlos Howe DO [address] [place] [address] ArrivedNOMS NE NEUROComment on above:ArrivedStart: 04-87-0799Hpmiypuuh for malignant neoplasm of colonNOMS HealthcareStart: 19-91-6718Ntbsdawdh vaccinationInfluenza VaccineMission Hospital McDowelltart: 09-09-2023 End: 37-92-2338KhekdukkkMount St. Mary Hospitaltart: 18-17-3356Llwwxsfljdpc Vaccine: 65+ Years (2 of 2 - PPSV23 or PCV20)Pneumococcal Vaccine: 65+ Years (2 of 2 - PPSV23 or PCV20)[facility] HealthcareStart: 66-41-1122Vrfjdfcbhogu Vaccine: 65+ Years (2 of 2 - PPSV23)Pneumococcal Vaccine: 65+ Years (2 of 2 - PPSV23)[facility] HealthcareStart: 07-28-7424Yvck Risk ScreeningFall Risk ScreeningMission Hospital McDowelltart: 86-80-9589Addkwaxdoysshm of varicella zoster vaccineZoster (Shingles) Vaccine (1 of 2)[facility] SystemStart: 30-50-2868ZQnU,Tdap and Td Vaccines (1 - Tdap)DTaP,Tdap and Td Vaccines (1 - Tdap)[facility] SystemStart: 68-46-1346Svwyk BMI ScreeningAdult BMI ScreeningMercy Health Allen Hospital SystemStart: 90-97-3748Rlzqblxewn ScreeningDepression ScreeningMercy Health Allen Hospital SystemStart: 06-09-1850Lwviycu ScreeningTobacco ScreeningOhioHealth Grove [facility] Start: 96-70-6420Jnqogzjyz for malignant neoplasm of colonNOMS Healthcare Comprehensive metabolic 1999 panel - Serum or [facility] HospitalPatient referral[facility] Work Phone: Renal function 1999 panel - Serum or [facility] HospitalUrine cultureOhio Valley HospitalUS Kidney - bilateralAdventist Health [facility] Immunizations Immunization DateImmunizationNotesCare HboeqvlkOaptdojx77-52-0828wlipoumsz virus vaccine, unspecified formulationSbrian Grace [phone]-BvutwWayne Healthcare Main Campus 74-40-0015EFJE-CoV-2 mRNA (tozinameran 5y-11y) vaccineSbrian Grace 464-5630Vbspdm-TcxkwWayne Healthcare Main Campus Comment on above:Result Comment: cgawth86-04-3093gbilyzahi virus vaccine, unspecified formulationSbrian Grace 989-3950Cyqydl-SouabWayne Healthcare Main Campus 42-00-6227jfdbxznov virus vaccine, unspecified formulationSbrian Grace [phone]-ZsapmDayton Osteopathic Hospital10-31-2022 SARS-CoV-2 (COVID-19) mRNAMUL.ORD!a06281Hvnege Ruiz 824-0197Bxgqdn-TlikiDayton Osteopathic Hospital09-26-2021 influenza virus vaccine, unspecified formulationSbrian Grace [phone]-WljszDayton Osteopathic Hospital09-26-2021 SARS-CoV-2 (COVID-19) mRNA BNT-162b2 vaJani Grace [phone]-XfczgDayton Osteopathic HospitalComment on above: Result Comment: 2023-01-13: BXP3594-28-8975XSVV-WbD-5 (COVID-19) mRNA BNT-162b2 vaxSbrian Grace 843-6216Ettwng-ZqrugDayton Osteopathic Hospital02-12-2021 SARS-CoV-2 (COVID-19) mRNA BNT-162b2 Blaynebrian Grace 080-6651Kxvgnd-JkayoDayton Osteopathic Hospital10-04-2020 influenza virus vaccine, unspecified formulationSnicolahalima Grace [phone]-FdonzDayton Osteopathic Hospital10-04-2020 pneumococcal conjugate vaccine, 13 valMedhat Grace 816-7826Bejdia-RykoeDayton Osteopathic HospitalNEGATED: Highlighted row has not occurred!86-65-7382laowurvga virus vaccine, unspecified formulationChristy Mulligan [phone]-DpdqgRiverside Methodist Hospitalue Payers DatePayer CategoryPayerPolicy [id number]-mcb [id number] [id number] Health Insurance [id number] 2018Medicare [id number] 2018Medicare HMOMEDICAL MUTUAL MEDICARE [id number] 1960Medicare [id number] 2.0.1.318074.3.57[id number] 2.0.1.603279.3.57[id number] 2.0.1.219650.3.57[id number] 2.16.840.1.719776.3.57[id number] 2.16.840.1.523488.3.57[id number] 2.16.840.1.129196.3.57[id number] 2.16.840.1.698490.3.57[id number] 2.16.840.1.298632.3.57[id number] 2.16.840.1.586158.3.57[id number] 2.16.840.1.813551.3.57[id number] 2.16.840.1.806638.3.57[id number] 2.16.840.1.255509.3.57[id number] 2.16.840.1.506193.3.57[id number] 2.16.840.1.960720.3.57[id number] 2.16.840.1.181717.3.57[id number] 2.16.840.1.763886.3.57[id number] 2.16.840.1.921566.3.579.[id number] 2.16.840.1.885634.3.57[id number] 2.16.840.1.444041.3.57[id number] 2.16.840.1.682727.3.57[id number] 2.16.840.1.222909.3.57[id number] 2.16.840.1.562153.3.579.2.56124-24-4526Vlpuepn92304199 2.16.840.1.492322.3.579.2.21885-10-0159Zoymbzy62654545 2.16.840.1.594540.3.579.2.51387-87-6047Ujtuagu26563086 2.16.840.1.907281.3.579.2.10212-11-8656Czvhiuu71015814 2.16.840.1.513137.3.579.2.26641-08-1106Fwxwbnx78403177 2.16.840.1.649454.3.579.2.57001-33-5706Giddrzh17058832 2.16.840.1.403711.3.579.2.50807-64-7633Geigequ50004530 2.16.840.1.593264.3.579.2.75404-44-1249Zloxcod753764814 2.16.840.1.435632.3.579.2.428387-18-8249Glwrepd85811105 2.16.840.1.473970.3.579.2.47674-69-9968Csvccrl42055458 2.16.840.1.940440.3.579.2.03729-76-8717Cvlrxsq13328166 2.16.840.1.993267.3.579.2.60632-86-8569Myzfhnx17930611 2.16.840.1.002599.3.579.2.69689-16-7048Nfcmoup17458543 2.16.840.1.944196.3.579.2.40677-89-7274Wxponni39800467 2.16.840.1.128532.3.579.2.53465-04-1866Udqpwfo10314966 2.16840.1.779741.3.579.2.71967-42-7657Iyxegmk99895470 2.16.840.1.905303.3.579.2.39220-19-8522Cpuhqif4661337 2.16.840.1.190487.3.579.2.110620-40-7700Uluzduh5127853 2.16.840.1.588801.3.579.2.159088-09-5928Eakffdn6886004 2.16.840.1.857382.3.579.2.651732-75-1331Abvsmor5110494 2.16.840.1.617362.3.579.2.900447-74-6458Akqugzm0539257 2.16.840.1.968648.3.579.2.379582-90-9778Wlkrlpc82130576 2.16.840.1.798784.3.579.2.55973-07-9404Yosfmgw65973478 2.16.840.1.978307.3.579.2.23521-72-2164Omvztrg56401499 2.16.840.1.107876.3.579.2.53084-30-0321Pguhptw86428405 2.16.840.1.115768.3.579.2.54213-59-1697Gvjpkam58143187 2.16.840.1.186699.3.579.2.04391-03-3372Tifzvub88891896 2.16.840.1.023066.3.579.2.60473-29-3576Qchkogw32844994 2.16.840.1.833073.3.579.2.58035-37-6480Lasvgcy79663795 2.16.840.1.712439.3.579.2.86237-05-0141Svgouwl78795752 2.16.840.1.673514.3.579.2.61331-76-7304Hhjyomw80357139 2.16.840.1.787670.3.579.2.53910-73-1554Srdvtbw82722171 2.16.840.1.557553.3.579.2.52982-87-6251Hdpclzz08365699 2.16.840.1.729663.3.579.2.40634-28-7206Emlaphf04567072 2.16.840.1.490411.3.579.2.72706-69-3488Zbveocf84799178 2.16.840.1.735249.3.579.2.58405-15-6937Mxwdqjj91536240 2.16.840.1.522582.3.579.2.41029-30-4270Prmkmpq22851562 2.16.840.1.467924.3.579.2.02469-72-5311Ekgirbc92140701 2.16.840.1.622840.3.579.2.97119-44-0016Findycg02933732 [id number] 2.16.840.1.408418.3.57[id number] 2.16.840.1.148804.3.57[id number] 2.16.840.1.438834.3.57[id number] 2.16.840.1.379656.3.57[id number] 2.16.840.1.081302.3.57[id number] 2.16.840.1.5[id number] 2.16.840.1.034941.3.579.2.531 Social History DateTypeDetailFacilityStart: 01-20-2023 End: 35-48-3704Lreevrk smoking statusEx-smoker (finding)[facility] above:former smoker, quit 2006uses chewing tobacco former smoker. stopped at age 50.Tobacco smoking statusSmokeless tobacco user within last 30 daysW[facility] BellevueComment on above:former smoker, quit 2006uses chewing tobaccoformer smoker. stopped at age 50.Start: 11-15-2018 End: 96-52-0628Mms Assigned At BirthMalSelect [facility] - Columbustart: 42-59-6579Ysm [facility] At [facility] CenterTobacco smoking status NHISTobacco smoking consumption unknownNOMS HealthcareStart: 35-24-5922Wko assigned at birthNot on fileNOMS HealthcareStart: 11-15-2018 End: 24-81-8175Okenwep of Social functionProMedica Health SystemStart: 06-28-2012 End: 85-37-6312XfqHnoo (finding)[facility] SystemHistory of tobacco use Current smokerNOMS HealthcareHistory of tobacco useCigarette SmokerNOMS HealthcareStart: 23-65-3700Ohnhxnk use and exposureSmokeless tobacco non-user NOMS HealthcareStart: 08-14-2024 End: 69-08-7475Pbnvmtnpa beverage intakeCurrent drinker of alcohol (finding)NOMS HealthcareStart: 99-51-5103Gosrjqi Comment2 BEERS/WKNOMS HealthcareSexual OrientationPike Community Hospital Medical Equipment Procedure CodeEquipment CodeEquipment Original TextEquipment IdentifierDatesMisc DME Prescription, See Instructions, 100 strip(s), 3, One touch ultra 2 test strips Use to tests sugars once a day Dx E11.9, [facility], 174.5, cm, 05/26/23 9:14:00EST, Height/Length Dosing, 109.1, kg, 05/26/23 9:14:00 EST, Weight DosingStart: 11-30-4320Lnub DME Prescription, See Instructions, 100 lancet(s), 3, Soft click lancets Use to test blood sugars once a day Dx E11.9, [facility], 174.5, cm, 05/26/23 9:14:00 EST,Height/Length Dosing, 109.1, kg, 05/26/23 9:14:00 EST, Weight DosingStart: 48-82-0440Eegd DME Prescription, See Instructions, 100 strip(s), 3, One touch ultra 2 test strips Use to tests sugars once a day Dx E11.9, [facility], 174.5, cm, 05/26/23 9:14:00 EST, Height/Length Dosing, 109.1, kg, 05/26/23 9:14:00 EST, Weight DosingStart: 98-19-9652Ofwo DME Prescription, See Instructions, 100 lancet(s), 3, Soft click lancets Use to test blood sugars once a day Dx E11.9, [facility], Supply, 174.5, cm, 05/26/23 9:14:00 EST,Height/Length Dosing, 109.1, kg, 05/26/23 9:14:00 EST, Weight DosingStart: 93-04-6272Yvtv DME Prescription, See Instructions, 100 strip(s), 3, One touch ultra 2 test strips Use to tests sugars once a day Dx E11.9, [facility], Supply, 174.5, cm, 05/26/23 9:14:00EST, Height/Length Dosing, 109.1, kg, 05/26/23 9:14:00 EST, Weight DosingStart: 05-71-8315Jcma DME Prescription, See Instructions, 100 lancet(s), 3, Soft click lancets Use to test blood sugars once a day Dx E11.9, [facility], Supply, 174.5, cm, 05/26/23 9:14:00 EST, Height/Length Dosing, 109.1, kg, 05/26/23 9:14:00 EST, Weight DosingStart: 02-57-3715Pzjy DME Prescription, See Instructions, 100 strip(s), 3, One touch ultra 2 test strips Use to tests sugars once a day Dx E11.9, [facility], Supply, 174.5, cm, 05/26/23 9:14:00EST, Height/Length Dosing, 109.1, kg, 05/26/23 9:14:00 EST, Weight DosingStart: 64-90-3422Lmsf DME Prescription, See Instructions, 100 lancet(s), 3, Soft click lancets Use to test blood sugars once a day Dx E11.9, [facility], Supply, 174.5, cm, 05/26/23 9:14:00 EST,Height/Length Dosing, 109.1, kg, 05/26/23 9:14:00 EST, Weight DosingStart: 93-87-1531Crwq DME Prescription, See Instructions, 100 strip(s), 3, One touch ultra 2 test strips Use to tests sugars once a day Dx E11.9, [facility], Supply, 174.5, cm, 05/26/23 9:14:00EST, Height/Length Dosing, 109.1, kg, 05/26/23 9:14:00 EST, Weight DosingStart: 22-61-9049Fvjd DME Prescription, See Instructions, 100 lancet(s), 3, Soft click lancets Use to test blood sugars once a day Dx E11.9, [facility], Supply, 174.5, cm, 05/26/23 9:14:00 EST, Height/Length Dosing, 109.1, kg, 05/26/23 9:14:00 EST, Weight DosingStart: 33-43-5597Csgs DME Prescription, See Instructions, 100 strip(s), 3, One touch ultra 2 test strips Use to tests sugars once a day Dx E11.9, [facility], Supply, 174.5, cm, 05/26/23 9:14:00EST, Height/Length Dosing, 109.1, kg, 05/26/23 9:14:00 EST, Weight DosingStart: 55-83-1778Hetz DME Prescription, See Instructions, 100 lancet(s), 3, Soft click lancets Use to test blood sugars once a day Dx E11.9, [facility], Supply, 174.5, cm, 05/26/23 9:14:00 EST,Height/Length Dosing, 109.1, kg, 05/26/23 9:14:00 EST, Weight DosingStart: 19-28-7387Xoiv DME Prescription, See Instructions, 100 strip(s), 3, One touch ultra 2 test strips Use to tests sugars once a day Dx E11.9, [facility], Supply, 174.5, cm, 05/26/23 9:14:00EST, Height/Length Dosing, 109.1, kg, 05/26/23 9:14:00 EST, Weight DosingStart: 24-90-4167Iyad DME Prescription, See Instructions, 100 lancet(s), 3, Soft click lancets Use to test blood sugars once a day Dx E11.9, [facility], Supply, 174.5, cm, 05/26/23 9:14:00 EST, Height/Length Dosing, 109.1, kg, 05/26/23 9:14:00 EST, Weight DosingStart: 57-87-4174Sttc DME Prescription, See Instructions, 100 strip(s), 3, One touch ultra 2 test strips Use to tests sugars once a day Dx E11.9, [facility], Supply, 174.5, cm, 05/26/23 9:14:00EST, Height/Length Dosing, 109.1, kg, 05/26/23 9:14:00 EST, Weight DosingStart: 85-79-8690Nggx DME Prescription, See Instructions, 100 lancet(s), 3, Soft click lancets Use to test blood sugars once a day Dx E11.9, [facility], Supply, 174.5, cm, 05/26/23 9:14:00 EST,Height/Length Dosing, 109.1, kg, 05/26/23 9:14:00 EST, Weight DosingStart: 77-58-8411Rrgr DME Prescription, See Instructions, 100 strip(s), 3, One touch ultra 2 test strips Use to tests sugars once a day Dx E11.9, [facility], Supply, 174.5, cm, 05/26/23 9:14:00EST, Height/Length Dosing, 109.1, kg, 05/26/23 9:14:00 EST, Weight DosingStart: 29-13-2533Nrlf DME Prescription, See Instructions, 100 lancet(s), 3, Soft click lancets Use to test blood sugars once a day Dx E11.9, [facility], Supply, 174.5, cm, 05/26/23 9:14:00 EST, Height/Length Dosing, 109.1, kg, 05/26/23 9:14:00 EST, Weight DosingStart: 29-46-5757Ypgdns Three Level DeformityFDAStart: 89-98-9190LEDCPYAP RELINE SCREW FDAStart: 26-73-2125UAZWQAMB RELINE SCREWFDAStart: 58-13-8013QCBXMMOP RELINE SCREWFDAStart: 40-15-0659BSVVCWSK RELINE SCREWFDAStart: 96-51-0892GOIYOWPJ RELINE SCREWFDAStart: 31-18-9423PJOYKOCO RELINE SCREWFDAStart: 05-18-2017 NUVASIVE RELINE SET SCREWFDAStart: 56-16-5690VDFTAFAU RELINE SET SCREWFDAStart: 15-12-4972UJVYJVFP RELINE SET SCREWFDAStart: 63-26-5968YQLPYBTF RELINE SET SCREW FDAStart: 42-23-8102MJTKFMXAIB 30CC CRUSHEDFDAStart: 07-23-2819WEGNBTKM RELINE SET SCREWFDAStart: 43-78-0243JAAKUFTF RELINE SET SCREWFDAStart: 05-18-2017 NUVASIVE RELINE SET SCREWFDAStart: 52-52-3101RXEQHCEE RELINE SET SCREWFDAStart: 86-92-9605MWTRKONMV CAPLOX II MED/LGFDAStart: 18-39-2929OPXECT LARGE 8.0CCFDA Start: 70-12-5713WDN PLIF INTERBODY NUVASIVEFDAStart: 29-60-7762MPD PLIF INTERBODY NUVASIVEFDAStart: 98-44-9760SJKVBCRU RELINE RODFDAStart: 05-18-2017 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FDAStart: 85-25-9211EHGAVWRR RELINE SCREWFDAStart: 89-62-7479Cxphhp Three Level DeformityFDAStart: 94-01-1960QWYSBDRF RELINE SCREW FDAStart: 54-24-6580WCDJGSAQ RELINE SCREWFDAStart: 37-55-4897LTXTONCK RELINE SCREWFDAStart: 93-48-1654FTHBGARP RELINE SCREWFDAStart: 64-30-0185ERXJDIEL RELINE SCREWFDAStart: 64-16-9486VVBBJASM RELINE SCREWFDAStart: 05-18-2017 NUVASIVE RELINE SET SCREWFDAStart: 37-03-8900FUHSMFCN RELINE SET SCREWFDAStart: 18-64-6487GZUABRBF RELINE SET SCREWFDAStart: 88-74-9662QFVAZBDM RELINE SET SCREW FDAStart: 15-65-6803HKXUNGSTHU 30CC CRUSHEDFDAStart: 16-95-1028TGWDMIXL RELINE SET SCREWFDAStart: 28-00-4719VGXYMCXF RELINE SET SCREWFDAStart: 05-18-2017 NUVASIVE RELINE SET SCREWFDAStart: 70-89-7669WKNEGQBY RELINE SET SCREWFDAStart: 97-32-9474FNHOWHAPI CAPLOX II MED/LGFDAStart: 26-72-0663ORDCMR LARGE 8.0CCFDA Start: 08-41-4819QDI PLIF INTERBODY NUVASIVEFDAStart: 69-34-4095MJZ PLIF INTERBODY NUVASIVEFDAStart: 23-06-2666QPLAUYAG RELINE RODFDAStart: 05-18-2017 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FDAStart: 75-17-1260BKIHNCDU RELINE SCREWFDAStart: 87-92-2441Prli DME Prescription, See Instructions, 100 strip(s), 3, One touch ultra 2 test strips Use to tests sugars once a day Dx E11.9, [facility], Supply, 174.5, cm, 05/26/23 9:14:00EST, Height/Length Dosing, 109.1, kg, 05/26/23 9:14:00 EST, Weight DosingStart: 69-31-9844Igur DME Prescription, See Instructions, 100 lancet(s), 3, Soft click lancets Use to test blood sugars once a day Dx E11.9, [facility], Supply, 174.5, cm, 05/26/23 9:14:00 EST,Height/Length Dosing, 109.1, kg, 05/26/23 9:14:00 EST, Weight DosingStart: 16-16-5379Ihvk DME Prescription, See Instructions, 100 strip(s), 3, One touch ultra 2 test strips Use to tests sugars once a day Dx E11.9, [facility], Supply, 174.5, cm, 05/26/23 9:14:00EST, Height/Length Dosing, 109.1, kg, 05/26/23 9:14:00 EST, Weight DosingStart: 91-52-7910Kpjf DME Prescription, See Instructions, 100 lancet(s), 3, Soft click lancets Use to test blood sugars once a day Dx E11.9, [facility], Supply, 174.5, cm, 05/26/23 9:14:00 EST, Height/Length Dosing, 109.1, kg, 05/26/23 9:14:00 EST, Weight DosingStart: 06-67-3505Etrb DME Prescription, See Instructions, 100 strip(s), 3, One touch ultra 2 test strips Use to tests sugars once a day Dx E11.9, [facility], Supply, 174.5, cm, 05/26/23 9:14:00EST, Height/Length Dosing, 109.1, kg, 05/26/23 9:14:00 EST, Weight DosingStart: 83-57-9135Ghvs DME Prescription, See Instructions, 100 lancet(s), 3, Soft click lancets Use to test blood sugars once a day Dx E11.9, [facility], Supply, 174.5, cm, 05/26/23 9:14:00 EST,Height/Length Dosing, 109.1, kg, 05/26/23 9:14:00 EST, Weight DosingStart: 65-22-0403Boyg DME Prescription, See Instructions, 100 strip(s), 3, One touch ultra 2 test strips Use to tests sugars once a day Dx E11.9, [facility], Supply, 174.5, cm, 05/26/23 9:14:00EST, Height/Length Dosing, 109.1, kg, 05/26/23 9:14:00 EST, Weight DosingStart: 24-54-6119Ejnu DME Prescription, See Instructions, 100 lancet(s), 3, Soft click lancets Use to test blood sugars once a day Dx E11.9, [facility], Supply, 174.5, cm, 05/26/23 9:14:00 EST, Height/Length Dosing, 109.1, kg, 05/26/23 9:14:00 EST, Weight DosingStart: 08-55-2516Tnyh DME Prescription, See Instructions, 100 strip(s), 3, One touch ultra 2 test strips Use to tests sugars once a day Dx E11.9, [facility], Supply, 174.5, cm, 05/26/23 9:14:00EST, Height/Length Dosing, 109.1, kg, 05/26/23 9:14:00 EST, Weight DosingStart: 98-17-7714Phxo DME Prescription, See Instructions, 100 lancet(s), 3, Soft click lancets Use to test blood sugars once a day Dx E11.9, [facility], Supply, 174.5, cm, 05/26/23 9:14:00 EST,Height/Length Dosing, 109.1, kg, 05/26/23 9:14:00 EST, Weight DosingStart: 53-93-9323Eezb DME Prescription, See Instructions, 100 strip(s), 3, One touch ultra 2 test strips Use to tests sugars once a day Dx E11.9, [facility], Supply, 174.5, cm, 05/26/23 9:14:00EST, Height/Length Dosing, 109.1, kg, 05/26/23 9:14:00 EST, Weight DosingStart: 43-18-5141Blql DME Prescription, See Instructions, 100 lancet(s), 3, Soft click lancets Use to test blood sugars once a day Dx E11.9, [facility], Supply, 174.5, cm, 05/26/23 9:14:00 EST, Height/Length Dosing, 109.1, kg, 05/26/23 9:14:00 EST, Weight DosingStart: 17-74-1459Hzhn DME Prescription, See Instructions, 100 strip(s), 3, One touch ultra 2 test strips Use to tests sugars once a day Dx E11.9, [facility], Supply, 174.5, cm, 05/26/23 9:14:00EST, Height/Length Dosing, 109.1, kg, 05/26/23 9:14:00 EST, Weight DosingStart: 85-28-9501Lonl DME Prescription, See Instructions, 100 lancet(s), 3, Soft click lancets Use to test blood sugars once a day Dx E11.9, [facility], Supply, 174.5, cm, 05/26/23 9:14:00 EST,Height/Length Dosing, 109.1, kg, 05/26/23 9:14:00 EST, Weight DosingStart: 04-40-4533Chwkwz Three Level DeformityFDAStart: 61-24-7968UCFWOHOH RELINE SCREWFDAStart: 80-55-8706JSTXQMUX RELINE SCREWFDA Start: 72-51-4971GFHMRFAJ RELINE SCREWFDAStart: 06-35-4808QQRAATPH RELINE SCREW FDAStart: 15-84-9008BIAFNOKD RELINE SCREWFDAStart: 63-76-8104HRTPQKUZ RELINE SCREWFDAStart: 04-87-6563ZMNVTRCQ RELINE SET SCREWFDAStart: 32-15-4690HDTHEODZ RELINE SET SCREWFDAStart: 26-77-6111WKURZBWQ RELINE SET SCREWFDAStart: 42-38-2998WBUAJZBY RELINE SET SCREWFDAStart: 47-73-8780SGTIHYFULU 30CC CRUSHED FDAStart: 30-32-0640KEMSWLXU RELINE SET SCREWFDAStart: 80-83-5633FWVSTFSH RELINE SET SCREWFDAStart: 65-60-4968XJCYUOWY RELINE SET SCREWFDAStart: 05-18-2017 NUVASIVE RELINE SET SCREWFDAStart: 95-72-8793ELNNTIVHE CAPLOX II MED/LGFDAStart: 67-82-3301YAFFFT LARGE 8.0CCFDAStart: 75-05-1033MOM PLIF INTERBODY NUVASIVEFDA Start: 91-74-6740RXO PLIF INTERBODY NUVASIVEFDAStart: 01-94-6833NVAYJZGY RELINE RODFDAStart: 55-28-7290PPDSNCXR RELINE SCREWFDAStart: 16-39-4302BCKDXEWR RELINE SCREWFDAStart: 19-69-9307Fguh DME Prescription, See Instructions, 100 strip(s), 3, One touch ultra 2 test strips Use to tests sugars once a day Dx E11.9, [facility], Supply, 174.5, cm, 05/26/23 9:14:00EST, Height/Length Dosing, 109.1, kg, 05/26/23 9:14:00 EST, Weight DosingStart: 77-66-3048Ebrs DME Prescription, See Instructions, 100 lancet(s), 3, Soft click lancets Use to test blood sugars once a day Dx E11.9, [facility], Supply, 174.5, cm, 05/26/23 9:14:00 EST,Height/Length Dosing, 109.1, kg, 05/26/23 9:14:00 EST, Weight DosingStart: 55-18-2186Lvkb DME Prescription, See Instructions, 100 strip(s), 3, One touch ultra 2 test strips Use to tests sugars once a day Dx E11.9, [facility], Supply, 174.5, cm, 05/26/23 9:14:00EST, Height/Length Dosing, 109.1, kg, 05/26/23 9:14:00 EST, Weight DosingStart: 46-48-4035Kwtz DME Prescription, See Instructions, 100 lancet(s), 3, Soft click lancets Use to test blood sugars once a day Dx E11.9, [facility], Supply, 174.5, cm, 05/26/23 9:14:00 EST, Height/Length Dosing, 109.1, kg, 05/26/23 9:14:00 EST, Weight DosingStart: 28-28-5157Yiey DME Prescription, See Instructions, 100 strip(s), 3, One touch ultra 2 test strips Use to tests sugars once a day Dx E11.9, [facility], Supply, 174.5, cm, 05/26/23 9:14:00EST, Height/Length Dosing, 109.1, kg, 05/26/23 9:14:00 EST, Weight DosingStart: 97-61-8771Yijj DME Prescription, See Instructions, 100 lancet(s), 3, Soft click lancets Use to test blood sugars once a day Dx E11.9, [facility], Supply, 174.5, cm, 05/26/23 9:14:00 EST,Height/Length Dosing, 109.1, kg, 05/26/23 9:14:00 EST, Weight DosingStart: 31-53-7760Gcqg DME Prescription, See Instructions, 100 strip(s), 3, One touch ultra 2 test strips Use to tests sugars once a day Dx E11.9, [facility], Supply, 174.5, cm, 05/26/23 9:14:00EST, Height/Length Dosing, 109.1, kg, 05/26/23 9:14:00 EST, Weight DosingStart: 73-41-9096Nxhe DME Prescription, See Instructions, 100 lancet(s), 3, Soft click lancets Use to test blood sugars once a day Dx E11.9, [facility], Supply, 174.5, cm, 05/26/23 9:14:00 EST, Height/Length Dosing, 109.1, kg, 05/26/23 9:14:00 EST, Weight DosingStart: 87-64-9873Zvje DME Prescription, See Instructions, 100 strip(s), 3, One touch ultra 2 test strips Use to tests sugars once a day Dx E11.9, [facility], Supply, 174.5, cm, 05/26/23 9:14:00EST, Height/Length Dosing, 109.1, kg, 05/26/23 9:14:00 EST, Weight DosingStart: 42-86-4432Qspe DME Prescription, See Instructions, 100 lancet(s), 3, Soft click lancets Use to test blood sugars once a day Dx E11.9, [facility], Supply, 174.5, cm, 05/26/23 9:14:00 EST,Height/Length Dosing, 109.1, kg, 05/26/23 9:14:00 EST, Weight DosingStart: 72-38-8403Pcak DME Prescription, See Instructions, 100 strip(s), 3, One touch ultra 2 test strips Use to tests sugars once a day Dx E11.9, [facility], Supply, 174.5, cm, 05/26/23 9:14:00EST, Height/Length Dosing, 109.1, kg, 05/26/23 9:14:00 EST, Weight DosingStart: 00-95-2240Ajdi DME Prescription, See Instructions, 100 lancet(s), 3, Soft click lancets Use to test blood sugars once a day Dx E11.9, [facility], Supply, 174.5, cm, 05/26/23 9:14:00 EST, Height/Length Dosing, 109.1, kg, 05/26/23 9:14:00 EST, Weight DosingStart: 05-26-2023'Number 1' Glucometer and test strips testing BS twice daily- will bring equipment to [facility] f/u to update brandStart: 01-03-2024'Number 1' Glucometer and test strips testing BS twice daily- will bring equipment to [facility] f/u to upd ate brandStart: 01-03-2024'Number 1' Glucometer and test strips testing BS twice daily- will bring equipment to [facility] f/u to update brandStart: 01-03-2024'Number 1' Glucometer and test strips testing BS twice daily- will bring equipment to [facility] f/u to update brandStart: 01-03-2024'Number 1' Glucometer and test strips testing BS twice daily- will bring equipment to [facility] f/u to update brandStart: 01-03-2024'Number 1' Glucometer and test strips testing BS twice daily- will bring equipment to [facility] f/u to update brandStart: 01-03-2024'Number 1' Glucometer and test strips testing BS twice daily- will bring equipment to [facility] f/u to upd ate brandStart: 01-03-2024'Number 1' Glucometer and test strips testing BS twice daily- will bring equipment to [facility] f/u to update brandStart: 01-03-2024'Number 1' Glucometer and test strips testing BS twice daily- will bring equipment to [facility] f/u to update brandStart: 01-03-2024'Number 1' Glucometer and test strips testing BS twice daily- will bring equipment to [facility] f/u to update brandStart: 75-33-7328Yezzdn Three Level DeformityFDAStart: 36-05-5448JSGYTJBI RELINE SCREW FDAStart: 47-02-5533NNHVJPYO RELINE SCREWFDAStart: 96-04-1772TNUMAODJ RELINE SCREWFDAStart: 79-73-9793YGPGFQAG RELINE SCREWFDAStart: 33-37-8863MCIGBAJV RELINE SCREWFDAStart: 32-57-9726BNUAVLLM RELINE SCREWFDAStart: 05-18-2017 NUVASIVE RELINE SET SCREWFDAStart: 82-54-8149QWXREGXN RELINE SET SCREWFDAStart: 67-90-3555HCWQMKDP RELINE SET SCREWFDAStart: 65-12-1945MZUYYDDG RELINE SET SCREW FDAStart: 10-22-7847HLSPFRXQHI 30CC CRUSHEDFDAStart: 03-13-4503LPYNWGAB RELINE SET SCREWFDAStart: 10-60-4359NEMCXZDV RELINE SET SCREWFDAStart: 05-18-2017 NUVASIVE RELINE SET SCREWFDAStart: 17-56-7748TLQEHXLX RELINE SET SCREWFDAStart: 15-12-4620JTAKBWSRA CAPLOX II MED/LGFDAStart: 79-03-4071GKOVNC LARGE 8.0CCFDA Start: 42-18-9881GGQ PLIF INTERBODY NUVASIVEFDAStart: 25-25-8857TSP PLIF INTERBODY NUVASIVEFDAStart: 96-83-6197GITVOYFE RELINE RODFDAStart: 05-18-2017 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FDAStart: 54-50-2460PRKHBPCT RELINE SCREWFDAStart: 05-18-2017'Number 1' Glucometer and test strips testing BS twice daily- will bring equipment to [facility] f/u to update brandStart: 82-11-1303Kewmbh Three Level DeformityFDAStart: 34-92-4897IWYLZANC RELINE SCREWFDAStart: 15-45-2027NHKEXVCK RELINE SCREWFDAStart: 50-91-7261TNRFXDNF RELINE SCREWFDAStart: 05-18-2017 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FDAStart: 81-24-3004EVBLOKHK RELINE SCREWFDAStart: 82-94-7322ISYDVCYF RELINE SCREWFDAStart: 66-54-8790LECNANNC RELINE SET SCREWFDA Start: 02-45-6900ZQGJWXKB RELINE SET SCREWFDAStart: 10-76-4130NGUAQNBU RELINE SET SCREWFDAStart: 95-10-1894PKXLRBZA RELINE SET SCREWFDAStart: 05-18-2017 CANCELLOUS 30CC CRUSHEDFDAStart: 41-91-0864XABJWKZN RELINE SET SCREWFDAStart: 00-49-2747XNYYWLBR RELINE SET SCREWFDAStart: 88-87-3342FBCLNZFW RELINE SET SCREW FDAStart: 15-23-1946YWTLHIHL RELINE SET SCREWFDAStart: 16-13-9420QGWDQVBCF CAPLOX II MED/LGFDAStart: 39-79-9951JDIHTD LARGE 8.0CCFDAStart: 40-39-6009BAD PLIF INTERBODY NUVASIVEFDAStart: 63-66-5371KMR PLIF INTERBODY NUVASIVEFDAStart: 11-15-6143ZMMXGTFZ RELINE RODFDAStart: 54-78-0885IUQKDWAK RELINE SCREWFDAStart: 64-84-7351AQZJKNUR RELINE SCREWFDAStart: 40-25-4091Kkhoyz Three Level Deformity FDAStart: 50-73-4918LKAXBVVD RELINE SCREWFDAStart: 08-47-9797MFYLQTMG RELINE SCREWFDAStart: 92-39-6231SSLILHLK RELINE SCREWFDAStart: 05-52-9920AIRKFFOL RELINE SCREWFDAStart: 49-72-2845OFMCUVCV RELINE SCREWFDAStart: 05-18-2017 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FDAStart: 65-95-4598PEPTYHSS RELINE SET SCREWFDAStart: 80-20-7843KSLVGBOC RELINE SET SCREWFDAStart: 00-08-6162WLLBGYBL RELINE SET SCREW FDAStart: 36-73-6406EXSVEVWL RELINE SET SCREWFDAStart: 62-28-1472YQUXAMFOHS 30CC CRUSHEDFDAStart: 74-55-4679ITEIKYRU RELINE SET SCREWFDAStart: 05-18-2017 NUVASIVE RELINE SET SCREWFDAStart: 58-02-4661WKXISBGO RELINE SET SCREWFDAStart: 62-98-8262XOJDSWFC RELINE SET SCREWFDAStart: 57-91-5970VYXRRITJS CAPLOX II MED/LGFDAStart: 17-42-6158GVCFRP LARGE 8.0CCFDAStart: 44-07-1263VMD PLIF INTERBODY NUVASIVEFDAStart: 58-51-4280WOL PLIF INTERBODY NUVASIVEFDAStart: 31-25-4138BSVGVFRP RELINE RODFDAStart: 49-09-5233TWXOWJTQ RELINE SCREWFDAStart: 83-92-8104GBMMRXEP RELINE SCREWFDAStart: 27-78-7480Czmscc Three Level Deformity FDAStart: 15-02-2703BDJBTRIG RELINE SCREWFDAStart: 67-20-0432KIKXBAMM RELINE SCREWFDAStart: 95-02-2018FERSTNJV RELINE SCREWFDAStart: 49-33-9575IVTPXOUS RELINE SCREWFDAStart: 32-75-1862KZHYIFJL RELINE SCREWFDAStart: 05-18-2017 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FDAStart: 27-63-6680JDRLBSVZ RELINE SET SCREWFDAStart: 91-22-2078GUGUDFMZ RELINE SET SCREWFDAStart: 10-86-4722WDPQORDT RELINE SET SCREW FDAStart: 52-02-0449ZMPCMOWK RELINE SET SCREWFDAStart: 13-97-1063IGLCRFEOEY 30CC CRUSHEDFDAStart: 62-24-2152KOVTSUQV RELINE SET SCREWFDAStart: 05-18-2017 NUVASIVE RELINE SET SCREWFDAStart: 15-21-3499YSJTWJES RELINE SET SCREWFDAStart: 99-62-9998ERUWIRIH RELINE SET SCREWFDAStart: 03-80-8382VUBUMSPGF CAPLOX II MED/LGFDAStart: 34-47-1866BQGQFY LARGE 8.0CCFDAStart: 43-84-1512EBA PLIF INTERBODY NUVASIVEFDAStart: 95-92-0327PDW PLIF INTERBODY NUVASIVEFDAStart: 25-81-2332MJCRRXIT RELINE RODFDAStart: 95-02-8062INELCKXV RELINE SCREWFDAStart: 16-22-3169IZHDJXLU RELINE SCREWFDAStart: 05-18-2017 Goals DatePatient GoalDesired Activity/State Functional Status YojhAewisxeeyuMjhszsRdzniexl31-48-4056Tffhaaafss StatusN/[facility]08-06-2024Functional StatusN/[facility]07-25-2024Functional StatusN/[facility] 80-29-6217Podbczuihm Status[facility]24[facility] StatusN/[facility]05-15-2024[facility]No[facility]04-18-2024Functional StatusN/A[facility]03-15-2024Functional StatusN/[facility]03-07-2024[facility] 50-15-7415Mejuxksmcq StatusN/A[facility]02-09-2024Functional StatusN/[facility]01-16-2024 Functional StatusN/A[facility] Clinical Notes 06-13-2019 to 03-19-2025 Note Date & OwgaYohnDdawicaj33-85-9402 Hospital Discharge instructions Patient Education 03/19/2025 10:00:34 Prostate Cancer Screening Prostate Cancer Screening Prostate cancer screening is testing that is done to check for the presence of prostate cancer in men. The prostate gland is a walnut-sized gland that is located below the bladder and in front of therectum in males. The function of the prostate is to add fluid to semen during ejaculation. Prostatecancer is one of the most common types of cancer in men. Who should have prostate cancer screening? Screening recommendations vary based on age and other risk factors, as well as between the professional organizations who make the recommendations. In general, screening is recommended if: You are age 50 to 70 and have an average risk for prostate cancer. You should talk with your healthcare provider about your need for screening and how often screening should be done. Because most prostate cancers are slow growing and will not cause , screening in this age group is generally reserved for men who have a 10- to 15-year life expectancy. You are younger than age 50, and you have these risk factors: ?Having a father, brother, or uncle who has been diagnosed with prostate cancer. The risk is higherif your family member's cancer occurred at an early age or if you have multiple family members withprostate cancer at an early age. ?Being a male who is Black or is of [place] or sub-Saharan descent. In general, screening is not recommended if: You are younger than age 40. You are between the ages of 40 and 49 and you have no risk factors. You are 70 years of age or older. At this age, the risks that screening can cause are greater than the benefits that it may provide. If you are at high risk for prostate cancer, your health care provider may recommend that you have screenings more often or that you start screening at a younger age. How is screening for prostate cancer done? The recommended prostate cancer screening test is a blood test called the prostate-specific antigen(PSA) test. PSA is a protein that is made in the prostate. As you age, your prostate naturally produces more PSA. Abnormally high PSA levels may be caused by: Prostate cancer. An enlarged prostate that is not caused by cancer (benign prostatic hyperplasia, or BPH). This condition is very common in older men. A prostate gland infection (prostatitis) or urinary tract infection. Certain medicines such as male hormones (like testosterone) or other medicines that raise testosterone levels. A rectal exam may be done as part of prostate cancer screening to help provide information about the size of your prostate gland. When a rectal exam is performed, it should be done after the PSA level is drawn to avoid any effect on the results. Depending on the PSA results, you may need more tests, such as: A physical exam to check the size of your prostate gland, if not done as part of screening. Blood and imaging tests. A procedure to remove tissue samples from your prostate gland for testing (biopsy). This is the only way to know for certain if you have prostate cancer. What are the benefits of prostate cancer screening? Screening can help to identify cancer at an early stage, before symptoms start and when the cancer can be treated more easily. There is a small chance that screening may lower your risk of dying from prostate cancer. The chance is small because prostate cancer is a slow-growing cancer, and most men with prostate cancer from a different cause. What are the risks of prostate cancer screening? The main risk of prostate cancer screening is diagnosing and treating prostate cancer that would never have caused any symptoms or problems. This is called overdiagnosisand overtreatment. PSA screening cannot tell you if your PSA is high due to cancer or a different cause. A prostate biopsy is the only procedure to diagnose prostate cancer. Even the results of a biopsy may not tell you if your cancer needs to be treated. Slow-growing prostate cancer may not need any treatment other than monitoring, so diagnosing and treating it may cause unnecessary stress or other side effects. Questions to ask your health care provider When should I start prostate cancer screening? What is my risk for prostate cancer? How often do I need screening? What type of screening tests do I need? How do I get my test results? What do my results mean? Do I need treatment? Where to find more information The [place] [employer]: www.cancer.org [place] [employer]: www.auanet.org Contact a health care provider if: You have difficulty urinating. You have pain when you urinate or ejaculate. You have blood in your urine or semen. You have pain in your back or in the area of your prostate. Summary Prostate cancer is a common type of cancer in men. The prostate gland is located below the bladder and in front of the rectum. This gland adds fluid to semen during ejaculation. Prostate cancer screening may identify cancer at an early stage, when the cancer can be treated more easily and is less likely to have spread to other areas of the body. The prostate-specific antigen (PSA) test is the recommended screening test for prostate cancer, butit has associated risks. Discuss the risks and benefits of prostate cancer screening with your health care provider. If you are age 70 or older, the risks that screening can cause are greater than the benefits that it may provide. This information is not intended to replace advice given to you by your health care provider. Make sure you discuss any questions you have with your health care provider. Document Revised: 11/16/2021 Document Reviewed: 11/16/2021 [employer] Patient Education 2023 [email or web address] Follow Up Care 09/25/2024 10:23:11 With:EMMY REYNOLDS, Bryant Vogel, URL Address: [address] [place], [place] [id number]- When: Unknown Comments:3 mos w/ PSA F&T [facility] 10-14-2025 NotePatient Education Oncology Prostate Cancer Screening Prostate cancer screening is testing that is done to check for the presence of prostate cancer in men. The prostate gland is a walnut-sized gland that is located below the bladder and in front of therectum in males. The function of the prostate is to add fluid to semen during ejaculation. Prostatecancer is one of the most common types of cancer in men. Who should have prostate cancer screening? Screening recommendations vary based on age and other risk factors, as well as between the professional organizations who make the recommendations. In general, screening is recommended if: ??? You are age 50 to 70 and have an average risk for prostate cancer. You should talk with your health care provider about your need for screening and how often screening should be done. Because most prostate cancers are slow growing and will not cause , screening in this age group is generally reserved for men who have a 10- to 15-year life expectancy. ??? You are younger than age 50, and you have these risk factors: ? Having a father, brother, or uncle who has been diagnosed with prostate cancer. The risk is higher if your family member's cancer occurred at an early age or if you have multiple family members with prostate cancer at an early age. ? Being a male who is Black or is of [place] or sub-Saharan descent. In general, screening is not recommended if: ??? You are younger than age 40. ??? You are between the ages of 40 and 49 and you have no risk factors. ??? You are 70 years of age or older. At this age, the risks that screening can cause are greater than the benefits that it may provide. If you are at high risk for prostate cancer, your health care provider may recommend that you have screenings more often or that you start screening at a younger age. How is screening for prostate cancer done? The recommended prostate cancer screening test is a blood test called the prostate-specific antigen(PSA) test. PSA is a protein that is made in the prostate. As you age, your prostate naturally produces more PSA. Abnormally high PSA levels may be caused by: ??? Prostate cancer. ??? An enlarged prostate that is not caused by cancer (benign prostatic hyperplasia, or BPH). This condition is very common in older men. ??? A prostate gland infection (prostatitis) or urinary tract infection. ??? Certain medicines such as male hormones (like testosterone) or other medicines that raise testosterone levels. A rectal exam may be done as part of prostate cancer screening to help provide information about the size of your prostate gland. When a rectal exam is performed, it should be done after the PSA level is drawn to avoid any effect on the results. Depending on the PSA results, you may need more tests, such as: ??? A physical exam to check the size of your prostate gland, if not done as part of screening. ??? Blood and imaging tests. ??? A procedure to remove tissue samples from your prostate gland for testing (biopsy). This is theonly way to know for certain if you have prostate cancer. What are the benefits of prostate cancer screening? Screening can help to identify cancer at an early stage, before symptoms start and when the cancer can be treated more easily. ??? There is a small chance that screening may lower your risk of dying from prostate cancer. The chance is small because prostate cancer is a slow-growing cancer, and most men with prostate cancer from a different cause. What are the risks of prostate cancer screening? The main risk of prostate cancer screening is diagnosing and treating prostate cancer that would never have caused any symptoms or problems. This is called overdiagnosisand overtreatment. PSA screening cannot tell you if your PSA is high due to cancer or a different cause. A prostate biopsy is the only procedure to diagnose prostate cancer. Even the results of a biopsy may not tell you if your cancer needs to be treated. Slow-growing prostate cancer may not need any treatment other than monitoring, so diagnosing and treating it may cause unnecessary stress or other side effects. Questions to ask your health care provider ??? When should I start prostate cancer screening? What is my risk for prostate cancer? How often do I need screening? What type of screening tests do I need? How do I get my test results? What do my results mean? Do I need treatment? Where to find more information ??? The [place] Cancer Society: www.cancer.org ??? [place] [employer] Association: www.auanet.org Contact a health care provider if: ??? You have difficulty urinating. ??? You have pain when you urinate or ejaculate. ??? You have blood in your urine or semen. ??? You have pain in your back or in the area of your prostate. Summary ??? Prostate cancer is a common type of cancer in men. The prostate gland (more content not included)...[facility]10-13-2025 Evaluation note* Diagnosis Onset Date Resolution Status Admit Date BPH (benign prostatic hyperplasia) acuteOctober 2024 8:01amDiabetesacuteOctober 2024 8:01amElevated PSA measurementacuteOctober 2024 8:01amHiatal hernia with GERD without esophagitisacuteOctober 2024 8:01amHypercholesteremiaacuteOctober 2024 8:01amHypertensionacuteOctober 2024 8:01amHypomagnesemiaacuteOctober 2024 8:01amKidney diseaseacuteOctober 2024 8:01amNausea and vomiting acuteOctober 2024 8:01am [facility] Work Phone: 1(226) 832-288610-13-2025 Evaluation note* Diagnosis Onset Date Resolution Status Admit Date BPH (benign prostatic hyperplasia) acuteOctober 2024 8:01amDiabetesacuteOctober 2024 8:01amElevated PSA measurementacuteOctober 2024 8:01amHiatal hernia with GERD without esophagitisacuteOctober 2024 8:01amHypercholesteremiaacuteOctober 2024 8:01amHypertensionacuteOctober 2024 8:01amHypomagnesemiaacuteOctober 2024 8:01amKidney diseaseacuteOctober 2024 8:01amNausea and vomiting acuteOctober 2024 8:01amAcute UTIacuteOctober 2024 9:40am [facility] Work Phone: 1(749) 675-585310-13-2025 Evaluation note* Diagnosis Onset Date Resolution Status Admit Date BPH (benign prostatic hyperplasia) acuteOctober 13th, 2025 8:01amDiabetesacuteOctober 2024 8:01amElevated PSA measurementacuteOctober 2024 8:01amHiatal hernia with GERD without esophagitisacuteOctober 2024 8:01amHypercholesteremiaacuteOctober 2024 8:01amHypertensionacuteOctober 2024 8:01amHypomagnesemiaacuteOctober 2024 8:01amKidney diseaseacuteOctober 2024 8:01amNausea and vomiting acuteOctober 2024 8:01amAcute UTIacuteOctober 2024 9:40amBPH (benign prostatic hyperplasia)acuteNovember 2024 10:13amCKD (chronic kidney disease) stage 3, GFR 30-59 ml/minacute[facility] 2024 10:13amHypertensive chronic kidney disease with stage 1 through stage 4 [facility] 20[facility] 10:13amHypomagnesemiaacuteCard[facility] 2024 10:13amSecondary hyperparathyroidismacuteCardinal [facility] 2024 10:13amType 2 diabetes mellitus with diabetic chronic kidney [facility]acute[facility]20[facility] 10:13am [facility] Work Phone: 1([phone]) 404-325708-05-2025 NotePatient Education Endocrinology Type 2 Diabetes Mellitus, Diagnosis, Adult Type 2 diabetes (type 2 diabetes mellitus) is a long-term, or chronic, disease. In type 2 diabetes,one or both of these problems may be [...] your medical history, a physical exam, and yourblood glucose level. Your blood glucose may be [...] be managed by a specialist called an carpet winder. Type 2 diabetes may be treated by [...] to keep your blood glucose levels in thehealthy range. ??? Taking medicines to help prevent [...] meet with a certified diabetes care and professor of physical education? What diabetes medicines do I need, and when should I take them? What equipment will I need to manage my diabetes at home? How often do I need to check my blood glucose? Where can I find a support group for people with diabetes? What number can I call if I have questions? When is my next appointment? General instructions ??? Take hewq-gqv-rxvwful and prescription medicines only as told by your health care provider. ??? Keep all follow-up visits. This is important. Where to find more information For help and guidance and for more information about diabetes, please visit: ??? [place] Diabetes Association (ADA): www.diabetes.org ??? [place] Association of Diabetes Care and Education Specialists (ADCES): www.diabeteseducator.org ??? International Diabetes Federation (IDF): www.idf (more content not included)...[facility]06-11-2025 NotePatient Education Urology Hematuria, Adult Hematuria is blood in the urine. Blood may be visible in the urine, or it may be identified with a test. This condition can be caused by infections of the bladder, urethra, kidney, or prostate. Otherpossible causes include: ??? Kidney stones. ??? Cancer [...] blood in your urine, even if it ispainless or the blood stops without treatment. Blood in the urine, when it happens and then stops and then happens again, can be a symptom of a very serious condition, including cancer. There is no pain in the initial stages of many urinary cancers. Follow these instructions at home: Medicines ??? Take pcdg-npx-bbupegy and prescription medicines only as told by your health care provider. ??? If you were prescribed an antibiotic medicine, take it as told by your health care provider. Donot stop taking the antibiotic even if you [...] kidney stone, follow your health care provider's instructionsabout straining your urine to catch the stone. [...] Tell your health care provider about any changesor any new symptoms. ??? It is up [...] the blood stops without treatment. ??? Take lsdv-ifu-kvfyfyh and prescription medicines only as told by your health care provider. ??? Drink enough fluid to keep your urine pale yellow. This information is not intended to replace advice given to you by your health care provider. Make sure you discuss any questions you have with your health care provider. Document Revised: 01/21/2021 Document Reviewed: 01/21/2021 [employer] Patient Education ? 2023 [email or web address] 10-08-2024 NotePatient Education Nutrition BMI for Adults Body mass [...] This can help you reach a healthy weight.BMI screening can be done again to see if these changes are working. How is BMI calculated? Your height and weight are measured. The BMI is found from those numbers. This can be done with U.S. or metric measurements. Note that charts and online BMI calculators are available to help you findyour BMI quickly and easily without doing these [...] measurement is 1.75 m x 1.75 m, whichequals 3.1 meters squared. 3. Divide the number of kilograms (your weight) by the meters squared number. In this example: 70 ?3.1 = 22.6. This is your BMI. What [...] for Disease Control and Prevention: cdc.gov ??? [place] Heart Association: heart.org ??? National Heart, Lung, and Blood [place]: nhlbi.nih.gov This information is not intended to replace advice given to you by your health care provider. Make sure you discuss any questions you have with your health care provider. Document Revised: 02/10/2023 Document Reviewed: 02/03/2023 [employer] Patient Education ? 2023 [email or web address] 09-25-2024 History of Present illness Narrative* MEIR Bob - 09/25/2024 8:45 AM EDT Images from the original note were not [...] requiring urgent evaluation. Visit was preformed using [employer]-tube dispatcher speech recognition. documented in this encounterBothwell Regional Health [id number] History of Present illness Narrative* MEIR Bob - 09/11/2024 9:15 AM EDT Images from the original note were not [...] planes with 5 out of 5 strength. Radialand ulnar pulses were present and equal bilaterally postoperatively. Sensation to light touch was intact to all dermatomes to operative upper extremity postoperatively. Capillary refill was less than2 seconds postoperatively to operative upper extremity nailbeds. [...] his thumb will not worsen, nor should therebe any additional weakness. He expresses overall satisfaction [...] for requiring urgent evaluation. documented in this encounterBothwell Regional Health [id number] Instructions* Patient Instructions* MEIR Bob - 09/11/2024 9:15 AM EDT Discussed Carpal Tunnel Surgery: Recommend tendon glides, slowly open and closed fist focusing on bending each joint 25 reps 4 timesa day. No submerging wound. ( No swimming [...] for more urgent evaluation. documented in this [facility]03-25-2025 Telephone encounter Note* Telephone Encounter - Rosenda Wade - 08/28/2024 10:06 AM EDT 's office left vm. Magnesium improved they stated. They stated that the final clearance is up to . The office phone number is [phone] ext [phone] [facility] CenterCogubehley67-49-4250 Miscellaneous Notes* Telephone Encounter - Rosenda Wade - 08/28/2024 10:06 AM EDT 's office left vm. Magnesium improved they stated. They stated that the final clearance is up to . The office phone number is [phone] ext [phone] documented in this [facility]03-18-2025 NotePatient Education Urology Acute Urinary Retention, Male Acute [...] trauma or because he does not want touse the bathroom. What are the signs or [...] these instructions at home: Medicines ??? Take ihfz-ila-arjhigb and prescription medicines only as told by your health care provider. Avoid certain medicines, such as decongestants, antihistamines, and some prescription medicines. Do nottake any medicine unless your health care provider approves. ??? If you were prescribed an antibiotic medicine, take it as told by your health care provider. Donot stop using the antibiotic even if you [...] provider. Document Revised: 02/11/2021 Document Reviewed: 02/11/2021 [employer] Patient Education ? 2023 [email or web address] 08-14-2024 History of Present illness Narrative* MEIR Bob - 08/14/2024 2:15 PM EDT Images from the original note were not [...] testing for upcoming surgery. Complete history with medical,surgery, and current allergy and medication list obtained. Consent for surgery signed and witnessedafter verbal consent to perform surgery received. All questions answered and proposed surgery scheduled. RT CTR 08/28/24 @ [facility] LUIS PAT 08/14/24 @ 2:15- [facility] Follow up for Post-Op09/11/24 @ 9:15 [facility]- RAUL. documented in this encounterBothwell Regional Health [id number] History of Present illness Narrative* Jr. Lauren Dillon, DO - 07/18/2024 8:30 AM EST NAME: Alicja Reyes : 1955 HISTORY OF PRESENT ILLNESS: NEW PT Alicja Reyes is an 69 y.o. @ male. (NEW PT) - (R) HAND DISCOMFORT ~5 MONTHS ; S/P B/L UE EMG 05/22/24 @[facility] NO XRAY B/L UE EMG 05/22/24 @[facility] NOTES NUMBNESS IN FINGERS. INTERMITTENT SHARP STABBING PAIN IN ALL FINGERS BUT THUMB. DISCOMFORT ~5MONTHS (02/2024). DIFFICULTY TAKING PILLS. LIMITED SAIL CUTTER WITH TIGHT FIST. ADMITS N/T. GOOD ROM [...] is normal. Strength additional comments: 5/5 EQUAL SAIL CUTTER STRENGTH Neurovascular Right Right neurovascular exam is [...] motion are affecting the patient's ability to sleepand activities of daily living and we have [...] for requiring urgent evaluation. documented in this encounterBothwell Regional Health [id number] NotePatient Education Nutrition BMI for Adults Body mass [...] This can help you reach a healthy weight.BMI screening can be done again to see if these changes are working. How is BMI calculated? Your height and weight are measured. The BMI is found from those numbers. This can be done with U.S. or metric measurements. Note that charts and online BMI calculators are available to help you findyour BMI quickly and easily without doing these [...] measurement is 1.75 m x 1.75 m, whichequals 3.1 meters squared. 3. Divide the number of kilograms (your weight) by the meters squared number. In this example: 70 ?3.1 = 22.6. This is your BMI. What [...] for Disease Control and Prevention: cdc.gov ??? [place] Heart Association: heart.org ??? National Heart, Lung, and Blood [place]: nhlbi.nih.gov This information is not intended to replace advice given to you by your health care provider. Make sure you discuss any questions you have with your health care provider. Document Revised: 02/10/2023 Document Reviewed: 02/03/2023 [employer] Patient Education ? 2023 [email or web address] 07-09-2024 NotePatient Education Cardiovascular Hypertension, Adult High blood pressure [...] are some conditions that result in high bloodpressure. What increases the risk? Certain factors may make you more likely to develop high blood pressure. Some of these risk factorsare under your control, including: ??? Smoking. ??? [...] on the floor. The cuff of the bloodpressure monitor will be placed directly against the [...] hypertension should eat less than 1,500 mg ofsodium a day. ??? Do not drink alcohol [...] one 12 oz bottle (more content not included)...[facility]12-17-2024 History of Present illness Narrative* SANDRA Calix - 05/22/2024 8:30 AM EST Images from the original note were not included. Reason for Appointment: EMG Patient: Alicja Reyes : 1955 EMG Computer: [employer] Referring Physician: Marino Kearns CNP EMG: LEONELE oil transport driver: Gee Wang RT(R) Office Location: [place] Reason for EMG: c/o numbness/tingling in fingers on left hand. Hx of left CTR & surgery to leftelbow. Hx of DM. Not on blood thinners. Comments: Procedure was explained to the patient who expressed understanding. Patient appeared to have tolerated the test well despite some discomfort due to the nature of the test. documented in this encounterBothwell Regional Health [id number] NotePatient Education Neurology Paresthesia Paresthesia is a burning [...] liquor (44 mL). General instructions ??? Take ghwy-sog-fmyenbp and prescription medicines only as told by [...] provider. Document Revised: 02/01/2022 Document Reviewed: 02/01/2022 [employer] Patient Education ? 2023 [employer] [facility] 01[facility] NoteNurse Consultation Note Reason for Visit Here for lab draw [...] virus vaccine, inactivated 04/05/2022 Recorded SARS-CoV-2 (COVID-19) mRNAMUL.ORD![id number] 04/05/2022 Recorded influenza virus vaccine, inactivated 03/01/2021 Recorded SARS-CoV-2 (COVID-19) mRNA BNT-162b2 vax 03/01/2021 Recorded 2023-01-13: [id number] SARS-CoV-2 (COVID-19) mRNA BNT-162b2 vax 08/08/2020 Recorded SARS-CoV-2 (COVID-19) mRNA BNT-162b2 vax 07/18/2020 Recorded pneumococcal 13-valent vaccine 03/09/2020 Recorded influenza virus vaccine, inactivated 03/09/2020 [facility] NoteNurse Consultation Note Reason for Visit Here for lab draw and Dr Tao ordered PSA free and total also joni that for him. canceled the urineculture as patient had urine done at [facility] yesterday and was told it's fine [...] virus vaccine, inactivated 04/05/2022 Recorded SARS-CoV-2 (COVID-19) mRNAMUL.ORD![id number] 04/05/2022 Recorded influenza virus vaccine, inactivated 03/01/2021 Recorded SARS-CoV-2 (COVID-19) mRNA BNT-162b2 vax 03/01/2021 Recorded 2023-01-13: [id number] SARS-CoV-2 (COVID-19) mRNA BNT-162b2 vax 08/08/2020 Recorded SARS-CoV-2 (COVID-19) mRNA BNT-162b2 vax 07/18/2020 Recorded pneumococcal 13-valent vaccine 03/09/2020 Recorded influenza virus vaccine, inactivated 03/09/2020 [facility] Hospital Discharge instructions Patient Education 01/10/2024 08:58:30 Clean Intermittent Catheterization, Male Clean Intermittent Catheterization, Male Clean intermittent catheterization (CIC) is a procedure to remove urine from the bladder by placinga small, flexible tube (catheter) into the bladder though the urethra. The urethra is a tube in thebody that carries urine from the bladder out [...] also help you to get the home caresupplies that are needed for this procedure. Supplies [...] and water are not available, use hand timber selector. 2.Clean your penis with soap and water. [...] pointing to the ceiling. You may wish toplace a waterproof mat or pad under you. [...] reusable catheter in a small bathroom. Take tnqi-bul-emzease and prescription medicines only as told by [...] to remove urine from the bladder by placinga small, flexible tube (catheter) into the bladder [...] provider. Document Revised: 03/29/2022 Document Reviewed: 03/29/2022 [employer] Patient Education 2022 [employer] Follow Up Care 09/22/2023 13:04:49 With:EMMY REYNOLDS, Bryant Vogel, URL Address: [address] [place] [address]- When: Unknown Comments:6 mos [facility] [place] [phone] NotePatient Education Urology Clean Intermittent Catheterization, Male Clean intermittent catheterization (CIC) is a procedure to remove urine from the bladder by placinga small, flexible tube (catheter) into the bladder though the urethra. The urethra is a tube in thebody that carries urine from the bladder out [...] also help you to get the home caresupplies that are needed for this procedure. Supplies [...] and water are not available, use hand timber selector. 2. Clean your penis with soap and [...] sterile swabs as told by your health careprovider. 11. Hold your penis upward at a 45?60 degree angle. This helps to straighten the urethra. 12. Slowly insert the lubricated catheter straight into your urethra until urine flows freely. Thisis usually about 6?8 inches (15?20 cm). 13. [...] catheter in a small bathroom. ? Take vswt-lzs-eqglfej and prescription medicines onl (more content not included)...[facility] NoteDischarge Summary Admission and Discharge Information Admit Date/Time:12/29/2023 [...] any withdrawal with absenteeism as he rarely goesw/o some type of alcohol intake. Hypomagnesemia -Multifactorial: [...] -2/2 B12 def -Baseline hgb. level - 12-13 -Anemia panel -> supplement -Outpt. f/u w/ GI for possible scopes - defer to PCP Hypertensive urgency: -DC HCTZ -Increase lisinopril to 40mg daily -Pt. educated to monitor blood pressure daily and record in a log -Patient threatening to leave AMA, he stated I am not spending 1 more fucking night in this [facility] with the terrible food and lack [...] symptoms have significantly improved and/or resolved. Patient iseating and drinking without complaints, denies being SOB, [...] made to ensure accuracy, however, inadvertently computerized cooker helper mistakes may be present. Significant Findings No qualifying data available. Services Consulted Consult to Nephrology - Ordered -- 12/29/23 15:09:00 EDT, Refractory hypomagnesemia, REQUESTED BY DR. GRACE, Consult and Co-manage Consult to Nephrology - Ordered -- 12/29/23 15:22:00 EDT, recurrent hypomag., renal wasting, Consult and Co-manage Consult to Social Servi (more content not included)...[facility] HospitalComment on above:Result Comment: Electronically Signed By: Dacia BYRD\.br\Date and Time Signed: 12/30/23 12:31 EDT\.br\Electronically Co- Signed By: Dacia MEYER\.br\Date and Time Co-Signed: 12/30/23 12:32 EDT\.br\Electronically Co-Signed By: Artemio Olivares DO\.br\Date and Time Co-Signed: 12/31/23 07:05 [id number] NoteConsultation Note Patient: ALICJA REYES Age: 68 years Sex: Male : 1955 Associated Diagnoses: None Author: Hellen Sexton CNP Basic Information Requesting Provider: Hospitalist Reason For Request: Hypomagnesemia management History of Present Illness 68-year-old WM with past medical history of EtOH abuse, BPH with urinary obstruction, DM, diabetic neuropathy, elevated PSA, hypotonic neurogenic bladder, GERD, hypokalemia, hypomagnesemia, prostaticintraepithelial neoplasia, HTN, HLD, urinary retention self caths [...] Once PRN Blood glucose, Routine, Start date 12/29/2415:15:00 EDT HumaLOG Sliding Scale: 0-10 Unit(s), Injection-Insulin, [...] Oral, q6hr PRN Pain, Routine, Start date 12/28/2414:45:00 EDT, 12/29/23 15:45:00 EDT ceftriaxone additive + Sodium Chloride 0.9% intravenous solution 50 mL: 1,000 mg = 1 EA, Injection,IV Piggyback, Daily, NOW, Start date 12/29/23 16:30:00 [...] Oral, Daily, Routine, Start date 12/30/23 9:00:00 EDT,12/29/23 15:42:00 EDT Prescriptions Prescribed Glucophage XR 500 mg Tab-ER: 1,000 mg = 2 tab(s), Oral, BID, # 360 tab(s), Refills(s) 1, Pharmacy: [facility], 174, cm, 07/26/23 10:21:00 EST, Height/Length Dosing, 104.8, kg, 07/26/23 10:21:00 EST, Weight Dosing [facility] Prescription: Mis DME Prescription, See Instructions, 1 kit(s), 0, One Touch Ultra 2 glucose meter kit Use to tests sugars daily E11.9, [facility], Supply, 174.5, cm, 05/26/23 9:14:00 EST, Height/Length Dosing, 109.1, kg, 05/26/23 9:14:00... Misc DME Prescription: Mis DME Prescription, See Instructions, 100 Unspecified/Unknown, 3, Alcoholprep pads Use to test blood sugars daily Dx E11.9, [facility], Supply, 174.5, cm, 05/26/23 9:14:00 EST, Height/LengthDosing, 109.1, kg, 05/26/23 9:1... Misc DME Prescription: Misc DME Prescription, See Instructions, 100 lancet(s), 3, Soft click lancets Use to test blood sugars once a day Dx E11.9, [facility], Supply, 174.5, cm,05/26/23 9:14:00 EST, Height/Length Dosing, 109.1, kg, 05/26/23 9:14:00... [facility] Prescription: [facility] Prescription, See Instructions, 100 strip(s), 3, One touch ultra 2 test strips Use to tests sugars once a day Dx E (more content not included)...[facility] HospitalComment on above: Result Comment: Electronically Signed By: Hellen Sexton CNP\.br\Date and Time Signed: 12/29/23 18:22 EDT\.br\Electronically Co-Signed By: Ramos Euceda MD\.br\Date and Time Co-Signed: 12/30/23 16:58 [id number] Hospital Discharge instructions Patient Education 12/30/2023 12:37:57 Hypomagnesemia Hypomagnesemia Hypomagnesemia is a condition in which the level of magnesium in the blood is too low. Magnesium oksana mineral that is found in many foods. [...] that have a lot of magnesium, such asgreen leafy vegetables, peas, beans, and nuts. Not [...] Do not drink alcohol. General instructions Take vdks-vem-ajjhghn and prescription medicines only as told by [...] provider. Document Revised: 10/20/2021 Document Reviewed: 10/20/2021 [employer] Patient Education 2022 [email or web address] 12/30/2023 12:37:57 Hypomagnesemia Hypomagnesemia Hypomagnesemia is a condition in which the level of magnesium in the blood is too low. Magnesium oksana mineral that is found in many foods. [...] that have a lot of magnesium, such asgreen leafy vegetables, peas, beans, and nuts. Not [...] Do not drink alcohol. General instructions Take wyta-lfc-zjmnyzp and prescription medicines only as told by [...] provider. Document Revised: 10/20/2021 Document Reviewed: 10/20/2021 [employer] Patient Education 2022 [email or web address] 12/30/2023 12:30:15 How to Take Your Blood Pressure, Njoj-qi-Cuji How to Take Your Blood Pressure Blood [...] Follow these instructions at home: Medicines Take hrny-jlv-wdfzdqe and prescription medicines only as told by [...] monitor. You can buy one at a [employer] or online. When choosing one: Choose one with an arm cuff. Choose one that wraps around your upper arm. Only one finger should fit between your arm and the cuff. Do not choose one that measures your blood pressure from your wrist or finger. Where to find more information [place] [employer]: www.heart.org Contact a doctor if: Your blood pressure keeps being high. Your blood pressure is suddenly low. Get help right away if: Your first blood pressure number is higher than 180. Your second blood pressure number is higher than 120. These symptoms may be an emergency. Do not wait to see if the symptoms will go away. Get help rightaway. Call 911. Summary Check your blood pressure [...] provider. Document Revised: 02/04/2022 Document Reviewed: 02/04/2022 [employer] Patient Education 2022 [email or web address] 12/30/2023 12:30:15 Form - Blood Pressure Record Sheet Blood Pressure Record Sheet To take your blood pressure, you will need a blood pressure machine. You may be prescribed one, or you can buy a blood pressure machine (blood pressure monitor) at your clinic, drug store, or online.When choosing one, look for these features: An [...] check. This makes sure the results are correct.Wait 1 2 minutes between measurements. Write down [...] provider. Document Revised: 02/04/2022 Document Reviewed: 02/04/2022 [employer] Patient Education 2022 [employer] 12/30/2023 11:53:55 Urinary Tract Infection, Adult, Maxe-nx-Rhdh Urinary Tract Infection, Adult A urinary tract infection (UTI) is an infection of any part of the urinary tract. The urinary tractincludes: The kidneys. The ureters. The bladder. The [...] Follow these instructions at home: Medicines Take rctk-gbo-wdpviam and prescription medicines only as told by [...] a female. Use each tissue one time whenyou wipe. Drink enough fluid to keep your [...] provider. Document Revised: 01/02/2021 Document Reviewed: 01/02/2021 [employer] Patient Education 2022 [email or web address] 12/30/2023 11:53:55 Hypomagnesemia Hypomagnesemia Hypomagnesemia is a condition in which the level of magnesium in the blood is too low. Magnesium oksana mineral that is found in many foods. [...] that have a lot of magnesium, such asgreen leafy vegetables, peas, beans, and nuts. Not [...] Do not drink alcohol. General instructions Take ugfd-hme-kzolhtf and prescription medicines only as told by [...] provider. Document Revised: 10/20/2021 Document Reviewed: 10/20/2021 [employer] Patient Education 2022 [email or web address] Follow Up Care 12/29/2023 13:34:47 With:Ramos Euceda Address: [address] [place] [address]- Business (1) When: Unknown Comments:Call for followup appointment in [place] office With:Nancy Grace Address: [address] [place] [address]- Business (2) When:01/05/2024 07:45:00 [facility] [id number] NoteInterdisciplinary Note - PT Order received, chart reviewed. Attempted PT evaluation at 1141 on 12/30/23. Upon attempt, pt. is speaking with Dacia MILLER-BP and threatening to leave AMA. Dacia instructs PT to hold evaluation at this time. Please re-order PT evaluation if deemed necessary in the future. No PT charges.[facility] Evaluation + Plan noteExtracted from:Title:HypoMgAuthor:Hellen Sexton CNP.Date:12/29/23 Impression and Plan 1. Hypomagnesemia likely due to chronic alcohol abuse and malnutrition. He states that his low magnesium started in June 2023 after he had a UTI. His PCP started him on Mag-Ox 1200 mg 3 times daily. He states that he decreased his Mag-Ox dose to 1200 mg daily because he was feeling fine. Initialmagnesium level was 0.9 and current magnesium level [...] per day. -Consult case management for rehabilitation. -WA protocol. 3. Hypotonic neurogenic bladder: He self caths himself 2-3 times a day. He is managed in the outpatient setting by Dr. Tao, urology. He had a cystoscopy on 11/28/2023 that displayed hypotonic neurogenic bladder, minimal prostatic obstruction, and poor bladder function. -Manage per primary team. Extracted from:Title:ED NoteAuthor:Ronny Cartagena DOMalgorzataDate:12/29/23 1. Hypomagnesemia (E83.42: H ypomagnesemia) 2. Hypertensive [...] 100 mL, IV Piggyback, Once, Stop date 12/28/2414:01:00 EDT, STAT, Start date 12/29/23 15:01:00 EDT, 25 mL/hr, Infuse over 4 hour(s), 12/29/23 15:01:00 EDT Basic Metabolic Panel CBC w/ Auto Diff Consult to Nephrology ECG 12 Lead Adult ED Physician consult Hospitalist for continued care eGFR Extra Blue Tube Extra SST Tube Ferritin Folate Level Iron Level Lactate Dehydrogenase Magnesium Level Phosphorus Level Reticulocyte Count TIBC Calculated Vitamin B12 Level Extracted from:Title:Admission H & PAuthor:[facility], ReneeDate:12/29/23 Awaiting med rec for all dx. 1. [...] (Z79.899: Other termite treater (current) drug therapy) -Lovenox Orders: acetaminophen, 650 [...] BID, NOW, Start date 12/29/23 15:36:00 EDT, 12/28/2414:36:00 EDT multivitamin, 1 tab(s), Tab, Oral, Daily, [...] Cardiac Monitoring CBC w/ Auto Diff Clinical [place] Withdrawal Assessment Clinical [place] Withdrawal Assessment Clinical [place] Withdrawal Assessment Clinical [place] Withdrawal Assessment Communication Order Physician to Nursing Communication Order Physician to Nursing Consult to Nephrology Consult to Special Systems Technician Drug Screen Urine Elevate Head of Bed [...] midnight stays for treatment of above unless hehas a quicker than anticipated recovery. This report was transcribed using voice recognition software. Every effort was made to ensure accuracy, however, inadvertently computerized cooker helper mistakes may be present. Future Appointments Appointment Date:01/05/2024 07:45:00 AM Scheduled Provider:Nancy Grace MD Location:[facility]3] Appointment Type: Hospital Follow Up w/TCM Appointment Date:01/10/2024 08:15:00 AM Scheduled Provider:Bryant TAO MD Location:[facility] [place] Appointment Type:URO Office Visit Appointment Date:01/13/2024 09:00:00 AM Scheduled Provider:Javier Goins MD [facility] Type:Cardiology Follow Up (FT) Appointment Date:07/09/2024 08:00:00 AM Scheduled Provider: Location:[facility]3] Appointment Type: Medicare Wellness Subsequent Diagnostic Tests Pending * PTH Intact 12/30/23 Future Scheduled Tests Laboratory* U Protein/Creat Ratio 07/14/23 * HgbA1c 07/14/23 * HgbA1c 07/26/23 * Microalbumin Level Urine 07/14/23 * CBC w/ Auto Diff 07/14/23 * Comprehensive Metabolic Panel 07/14/23 * Lipid Panel 07/14/23 [facility] 06-24-2024 Hospital Discharge instructions Patient Education [...] Care 09/27/2023 14:45:03 With:Bryant TAO Address: [address] [place], [place] [id number] Business (1) When: Unknown Comments:As we discussed, [...] are at least emptying the bladder intermittently. [facility]06-24-2024 Note [id number]-20[facility] NoteCystoscopy ? Voiding after [...] if you have a fever over 100 degrees.[facility] 09-22-2023 Hospital Discharge instructions Patient Education [...] including vitamins, herbs, eye drops, creams, and ydov-dsd-vhpeprd medicines. Any problems you or family members [...] provider tells you to take them. Taking nuyy-lhp-ikizfuz medicines, vitamins, herbs, and supplements. Tests You [...] Follow these instructions at home: Medicines Take aamu-xgs-haeserj and prescription medicines only as told by [...] provider. Document Revised: 02/03/2022 Document Reviewed: 01/02/2021 [employer] Patient Education 2022 [email or web address] Follow Up Care 09/06/2023 09:35:10 With:EMMY REYNOLDS, Bryant Vogel, URL Address: [facility] [place] [address]- When: Unknown [facility] [place] [phone] NoteUrology Cystoscopy Cystoscopy is a procedure that [...] including vitamins, herbs, eye drops, creams, and pxcw-alj-uscfhaz medicines. ? Any problems you or family [...] tells you to take them. ? Taking arva-fcm-webmejt medicines, vitamins, herbs, and supplements. Tests You [...] these instructions at home: Medicines ? Take kkch-oln-tufilqt and prescription medicines only as told by [...] the department th (more content not included)...[facility] 08-17-2023 [id number] [facility]02-21-2024 Hospital Discharge instructions Patient Education [...] discomfort near your rectum, especially while sitting. Beulah-colored urine due to small amounts of blood in your urine. A burning feeling while urinating. Blood in your stool (feces) or bleeding from your rectum. Blood in your semen. Follow these instructions at home: Medicines Take dzdr-iyu-ajzvpgd and prescription medicines only as told by [...] provider. Document Revised: 11/16/2021 Document Reviewed: 11/16/2021 [employer] Patient Education 2022 [email or web address] 07/27/2023 11:28:00 Transrectal Ultrasound-Guided Prostate Biopsy Transrectal [...] including vitamins, herbs, eye drops, creams, and nvct-fwr-dkurpmb medicines. Any problems you or family members [...] provider tells you to take them. Taking zffv-uhw-lkmkhaj medicines, vitamins, herbs, and supplements. General instructions [...] provider. Document Revised: 11/16/2021 Document Reviewed: 11/16/2021 [employer] Patient Education 2022 [email or web address] Follow Up Care 07/26/2023 12:46:05 With:RAMANDEEP PORTER PA-C, URL Address: [address] [place] [address] When: Unknown [facility] [place] 01-16-2024 Hospital Discharge instructions Patient Education [...] including vitamins, herbs, eye drops, creams, and ssju-dly-xiwzysu medicines. Any problems you or family members [...] provider tells you to take them. Taking uofn-xrz-yvxedyt medicines, vitamins, herbs, and supplements. Tests You [...] Follow these instructions at home: Medicines Take nqhz-gxk-sgywucb and prescription medicines only as told by [...] provider. Document Revised: 02/03/2022 Document Reviewed: 01/02/2021 [employer] Patient Education 2022 [employer] 06/21/2023 14:21:23 Acute Urinary Retention, Male [...] Follow these instructions at home: Medicines Take vaft-wdi-wrbakny and prescription medicines only as told by [...] provider. Document Revised: 02/11/2021 Document Reviewed: 02/11/2021 [employer] Patient Education 2022 [email or web address] Follow Up Care 06/21/2023 10:00:59 With:MINDI CHRISTIAN, RAMANDEEP Green, URL Address: [address] [place] [address]. [place] [address] [phone] When: Unknown Comments:sched cysto and prostate MRI [facility] 03-01-2020 Evaluation + Plan note Future Appointments Appointment Date:08/02/2023 08:00:00 AM Scheduled Provider: Location:FT.[facility]ARDIO Appointment Type:CV Echo (FT) Appointment Date:08/05/2023 08:45:00 AM Scheduled Provider: Location:FT.[facility] Appointment Type:NM Myocard Spect Multi Rest/Stress-Res Appointment Date:08/05/2023 09:45:00 AM Scheduled [facility] Type:NM Myocard Spect Multi Rest/Stress - R Appointment Date:08/05/2023 10:15:00 AM Scheduled Provider: [facility] App[facility] Type:NM Myocard Spect Multi Rest/Stress-Str Appointment Date:08/05/2023 11:15:00 AM Scheduled Provider: [facility] App[facility] Type:NM Myocar Spect Multi Rest/Stress - St Appointment Date:08/08/2023 02:00:00 PM Scheduled Provider: Location:[facility] Appointment Type:Urology FT Appointment Date:08/08/2023 03:00:00 PM Scheduled Provider: Location:[facility] Appointment Type:Urology FT Appointment Date:08/15/2023 07:00:00 AM Scheduled Provider:Nancy Grace MD Location:[facility]3] Appointment Type: Open Appointment Date:08/19/2023 11:45:00 AM Scheduled Provider:Troy Coulter MD [facility] Appoint[facility] Type:Cardiology Follow Up (FT) Appointment Date:07/09/2024 08:00:00 AM Scheduled Provider: Location:[facility]3] Appointment Type:FM Medicare Wellness Subsequent Future Scheduled Tests Laboratory* U Protein/Creat Ratio 07/14/23 * HgbA1c 07/14/23 * HgbA1c 07/26/23 * Microalbumin Level Urine 07/14/23 * CBC w/ Auto Diff 07/14/23 * Comprehensive Metabolic Panel 07/14/23 * Lipid Panel 07/14/23 Radiology* NM Myocardial Spect Rest/Stress 1 Day 08/05/23 * Echo Transthoracic Complete 08/02/23 [facility] 01-08-2020 Evaluation + Plan note Future Appointments Appointment Date:06/09/2023 08:00:00 AM Scheduled Provider: [facility] Type:CV Echo (FT) Appointment Date:06/13/2023 08:00:00 AM Scheduled Provider:Nancy Grace MD Location:[facility]] Appointment Type:FM Open Appointment Date:07/11/2023 09:00:00 AM Scheduled Provider:Manolo ALLEN MD [facility] New Patient Appointment Date:07/27/2023 02:00:00 PM Scheduled [facility] Wellness Subsequent Appointment Date:07/27/2023 02:40:00 PM Scheduled Provider:Nancy Grace MD Location:[facility]] Appointment Type: Open Future Scheduled Tests Radiology* Echo Transthoracic [facility] Appointment Date:07/27/2023 02:00:00 PM Scheduled Provider: Location:[facility] Appointment Type: Medicare Wellness Subsequent Appointment Date:07/27/2023 02:40:00 PM Scheduled Provider:Nancy Grace MD Location:[facility] Appointment Type: Open [facility] + Plan note Future Appointments Appointment Date:05/16/2023 07:20:00 AM Scheduled Provider:[facility]: [facility] Appointment Date:07/27/2023 02:00:00 PM Scheduled Provider: Location:[facility] Appointment Type: Medicare Wellness Subsequent Appointment Date:07/27/2023 02:40:00 PM Scheduled Provider:Nancy Grace MD Location:[facility] Appointment Type: Open [facility] + Plan note Future Appointments Appointment Date:05/16/2023 07:20:00 AM Scheduled Provider:Nancy Grace MD [facility] Type: Open Appointment Date:07/27/2023 02:00:00 PM Scheduled Provider: Location:[facility] Appointment Type: Medicare Wellness Subsequent Appointment Date:07/27/2023 02:40:00 PM Scheduled Provider:Nancy Grace MD [facility] Type: Open Diagnostic Tests Pending * [facility]ments Appointment Date:07/11/2023 09:00:00 AM Scheduled Provider:Manolo ALLEN MD [facility] Type:URO New Patient Appointment Date:07/27/2023 02:00:00 PM Scheduled Provider: Location:[facility]3] Appointment Type:FM Medicare Wellness Subsequent Appointment Date:07/27/2023 02:40:00 PM Scheduled Provider:Nancy Grace MD Location:[facility]3] Appointment Type:FM Open Diagnostic Tests Pending * Urine Culture 05/16/23 Future Scheduled Tests Radiology* Echo Transthoracic [facility] Appointment Date:05/27/2023 08:20:00 AM Scheduled Provider: Location:[facility]3] Appointment Type:FM Nurse Visit Appointment Date:06/09/2023 08:00:00 AM Scheduled Provider: [facility] Appointment Type:CV Echo () Appointment Date:06/13/2023 08:00:00 AM Scheduled Provider:Nancy Grace MD Location:[facility]3] Appointment Type: Open Appointment Date:07/11/2023 09:00:00 AM Scheduled Provider:Manolo ALLEN MD Location:[facility] Appointment Type:URO New Patient Appointment Date:07/27/2023 02:00:00 PM Scheduled Provider: Location:[facility]3] Appointment Type: Medicare Wellness Subsequent Appointment Date:07/27/2023 02:40:00 PM Scheduled Provider:Nancy Grace MD Location:[facility]3] Appointment Type:FM Open Diagnostic Tests Pending * Urine Culture 05/26/23 Future Scheduled Tests Laboratory* Basic Metabolic Panel 05/26/23 Radiology* Echo Transthoracic [facility]ments Appointment Date:06/13/2023 08:00:00 AM Scheduled Provider:Nancy Grace MD Location:[facility]3] Appointment Type:FM Open Appointment Date:06/29/2023 10:15:00 AM Scheduled Provider:Kristel Tolentino MD Location:[facility] Appointment Type:URO New Patient Appointment Date:07/25/2023 02:00:00 PM Scheduled Provider: Location:[facility]3] Appointment Type: Medicare Wellness Subsequent Appointment Date:07/25/2023 03:00:00 PM Scheduled Provider:Nancy Grace MD Location:[facility] Appointment Date:06/29/2023 10:15:00 AM Scheduled Provider:Kristel Tolentino MD Location:[facility] Appointment Type:URO New Patient Appointment Date:07/14/2023 10:00:00 AM Scheduled Provider:Nancy Grace MD Location:[facility]3] Appointment Type: Open Appointment Date:07/15/2023 02:00:00 PM Scheduled Provider:Troy Coulter MD [facility] Appointment Type:Cardiology New Patient (FT) Appointment Date:07/25/2023 02:00:00 PM Scheduled Provider: Location:[facility]3] Appointment Type: Medicare Wellness Subsequent Appointment Date:07/25/2023 03:00:00 PM Scheduled Provider:Nancy Grace MD Location:[facility] Future Appointments Appointment Date:06/22/2023 10:30:00 AM Scheduled Provider: Location:[facility] Appointment Type:URO Nurse Visit Appointment Date:06/28/2023 07:45:00 AM Scheduled Provider:Nancy Grace MD Location:[facility]3] Appointment Type: Hospital Follow Up w/TCM Appointment Date:07/14/2023 10:00:00 AM Scheduled Provider:Nancy Grace MD Location:[facility]3] Appointment Type: Open Appointment Date:07/15/2023 02:00:00 PM Scheduled Provider:Troy Coulter MD [facility] Appointment Type:Cardiology New Patient (FT) Appointment Date:07/25/2023 02:00:00 PM Scheduled Provider: Location:[facility]3] Appointment Type: Medicare Wellness Subsequent Appointment Date:07/25/2023 03:00:00 PM Scheduled Provider:Nancy Grace MD Location:[facility]3] Appointment Type: Open [facility] evaluation + Plan note Future Appointments Appointment Date:06/23/2023 08:00:00 AM Scheduled Provider: Location:[facility] Appointment Type:URO Nurse Visit Appointment Date:06/28/2023 07:45:00 AM Scheduled Provider:[facility] w/TCM Appointment Date:07/14/2023 10:00:00 AM Scheduled Provider:Nancy [facility]: Open Appointment Date:07/15/2023 02:00:00 PM Scheduled Provider:Troy Coulter MD [facility] Appointment Type:Cardiology New Patient (FT) Appointment Date:07/25/2023 02:00:00 PM Scheduled Provider: Location:[facility]3] Appointment Type: Medicare Wellness Subsequent Appointment Date:07/25/2023 03:00:00 PM Scheduled Provider:Nancy Grace MD Location:[facility]3] Appointment Type: Open [facility] evaluation + Plan note Future Appointments Appointment Date:06/28/2023 07:45:00 AM Scheduled Provider:Nancy Grace MD Location:[facility]3] Appointment Type: Hospital Follow Up w/TCM Appointment Date:07/14/2023 10:00:00 AM Scheduled Provider:Nancy Grace MD Location:[facility]3] Appointment Type: Open Appointment Date:07/15/2023 02:00:00 PM Scheduled Provider:Troy Coulter MD [facility] Appointment Type:Cardiology New Patient (FT) Appointment Date:07/25/2023 02:00:00 PM Scheduled Provider: Location:[facility]3] Appointment Type: Medicare Wellness Subsequent Appointment Date:07/25/2023 03:00:00 PM Scheduled Provider:Nancy Grace MD Location:[facility]3] Appointment Type:[facility] evaluation + Plan note Future Appointments Appointment Date:07/14/2023 10:00:00 AM Scheduled Provider:Nancy Grace MD Location:[facility]3] Appointment Type:FM Open Appointment Date:07/15/2023 02:00:00 PM Scheduled Provider:Troy Coulter MD [facility] Appointment Type:Cardiology New Patient (FT) Appointment Date:07/25/2023 02:00:00 PM Scheduled Provider: Location:[facility]3] Appointment Type: Medicare Wellness Subsequent Appointment Date:07/25/2023 03:00:00 PM Scheduled Provider:Nancy Grace MD Location:[facility]3] Appointment Type:FM Open Appointment Date:08/08/2023 02:00:00 PM Scheduled Provider: Location:[facility] Appointment Type:Urology FT Appointment Date:08/08/2023 03:00:00 PM Scheduled Provider: Location:[facility] App[facility]ment [facility] Future App[facility]ments Appointment Date:07/25/2023 02:00:00 PM Scheduled Provider: Location:[facility]3] Appointment Type: Medicare Wellness Subsequent Appointment Date:07/25/2023 03:00:00 PM Scheduled Provider:Nancy Grace MD Location:[facility]3] Appointment Type: Open Appointment Date:08/02/2023 08:00:00 AM Scheduled Provider: Location[facility] Appointment Type:CV Echo (FT) Appointment Date:08/08/2023 02:00:00 PM Scheduled Provider: Location:[facility] Appointment Type:Urology FT Appointment Date:08/08/2023 03:00:00 PM Scheduled Provider: Location:[facility] Appointment Type:Urology FT Appointment Date:08/19/2023 11:45:00 AM Scheduled Provider:Troy Coulter MD [facility] Appointment Type:Cardiology Follow Up (FT) Future Scheduled Tests Laboratory* U Protein/Creat Ratio 07/14/23 * HgbA1c 07/14/23 * Microalbumin Level Urine 07/14/23 * CBC w/ Auto Diff 07/14/23 * Comprehensive Metabolic Panel 07/14/23 * Lipid Panel 07/14/23 Radiology* Echo Transthoracic Complete [facility]02[facility] Future App[facility]ments Appointment Date:08/05/2023 08:45:00 AM Scheduled Provider: [facility] Appoint[facility] Type:NM Myocard Spect Multi Rest/Stress-Res Appointment Date:08/05/2023 09:45:00 AM Scheduled Provider: [facility] Appointment Type:NM Myocard Spect Multi Rest/Stress - R Appointment Date:08/05/2023 10:15:00 AM Scheduled Provider: [facility] Appointment Type:NM Myocard Spect Multi Rest/Stress-Str Appointment Date:08/05/2023 11:15:00 AM Scheduled Provider: [facility] Appointment Type:NM Myocar Spect Multi Rest/Stress - St Appointment Date:08/15/2023 07:00:00 AM Scheduled Provider:Nancy Grace MD Location:[facility]3] Appointment Type: Open Appointment Date:08/19/2023 11:45:00 AM Scheduled Provider:Troy Coulter MD [facility] Appointment Type:Cardiology Follow Up (FT) Appointment Date:07/09/2024 08:00:00 AM Scheduled Provider: Location:[facility]3] Appointment Type:FM Medicare Wellness Subsequent Future Scheduled Tests Laboratory* U Protein/Creat Ratio 07/14/23 * HgbA1c 07/14/23 * HgbA1c 07/26/23 * Microalbumin Level Urine 07/14/23 * CBC w/ Auto Diff 07/14/23 * Comprehensive Metabolic Panel 07/14/23 * Lipid Panel 07/14/23 Radiology* NM Myocardial Spect Rest/Stress 1 Day 08/05/23 [facility] Future App[facility]ments Appointment Date:08/08/2023 12:30:00 PM Scheduled Provider: [facility] Appointment Type:NM Myocard Spect Multi Rest/Stress-Res Appointment Date:08/08/2023 01:30:00 PM Scheduled Provider: [facility] Appointment Type:NM Myocard Spect Multi Rest/Stress - R Appointment Date:08/08/2023 02:00:00 PM Scheduled Provider: [facility] Appointment Type:NM Myocard Spect Multi Rest/Stress-Str Appointment Date:08/08/2023 03:00:00 PM Scheduled Provider: [facility] Appointment Type:NM Myocar Spect Multi Rest/Stress - St Appointment Date:08/11/2023 09:30:00 AM Scheduled Provider: Location:[facility] Appointment Type:Surgical PAT FT Appointment Date:08/15/2023 07:00:00 AM Scheduled Provider:Nancy Grace MD Location:[facility]3] Appointment Type: Open Appointment Date:08/19/2023 11:45:00 AM Scheduled Provider:Troy Coulter MD Location:[facility] Appointment Type:Cardiology Follow Up (FT) Appointment Date:09/01/2023 01:30:00 PM Scheduled Provider: Location:[facility] Appointment Type:Surgery FT Appointment Date:07/09/2024 08:00:00 AM Scheduled Provider: Location:[facility]3] Appointment Type: Medicare Wellness Subsequent Future Scheduled Tests Laboratory* U Protein/Creat Ratio 28/24 * HgbA1c 2/8/24 * HgbA1c 220/24 * Microalbumin Level Urine 24 * CBC w/ Auto Diff 07/14/23 * Comprehensive Metabolic Panel 07/14/23 * Lipid Panel 07/14/23 [facility] Future App[facility]ments Appointment Date:08/15/2023 07:00:00 AM Scheduled Provider:Nancy Grace MD Location:[facility]3] Appointment Type: Open Appointment Date:08/19/2023 11:45:00 AM Scheduled Provider:Troy Coulter MD Location:[facility] Appointment Type:Cardiology Follow Up (FT) Appointment Date:09/01/2023 01:30:00 PM Scheduled Provider: Location:[facility] Appointment Type:Surgery FT Appointment Date:07/09/2024 08:00:00 AM Scheduled Provider: Location:[facility]3] Appointment Type: Medicare Wellness Subsequent Future Scheduled Tests Laboratory* U Protein/Creat Ratio 28/24 * HgbA1c 28/24 * HgbA1c 220/24 * Microalbumin Level Urine 24 * CBC w/ Auto Diff 824 * Comprehensive Metabolic Panel 24 * Lipid Panel 24 [facility] Future Appointments Appointment Date:08/19/2023 11:45:00 AM Scheduled Provider:Troy Coulter MD [facility] Appointment Type:Cardiology Follow Up (FT) Appointment Date:09/01/2023 01:30:00 PM Scheduled Provider: Location:[facility] Appointment Type:Surgery FT Appointment Date:07/09/2024 08:00:00 AM Scheduled Provider: Location:[facility]3] Appointment Type: Medicare Wellness Subsequent Diagnostic Tests Pending * Microalbumin Level Urine 08/15/23 * U Protein/Creat Ratio 08/15/23 Future Scheduled Tests Laboratory* U Protein/Creat Ratio 07/14/23 * HgbA1c 07/14/23 * HgbA1c 07/26/23 * Microalbumin Level Urine 07/14/23 * CBC w/ Auto Diff 07/14/23 * Comprehensive Metabolic Panel 07/14/23 * Lipid Panel 07/14/23 [facility] App[facility]ments Appointment Date:09/01/2023 01:45:00 PM Scheduled Provider: Location:[facility] Appointment Type:Surgery FT Appointment Date:10/19/2023 12:00:00 PM Scheduled Provider:Troy Coulter MD [facility] App[facility] Type:Cardiology Follow Up (FT) Appointment Date:07/09/2024 08:00:00 AM Scheduled Provider: Location:[facility]3] Appointment Type: Medicare Wellness Subsequent Future Scheduled Tests Laboratory* U Protein/Creat Ratio 07/14/23 * HgbA1c 07/14/23 * HgbA1c 07/26/23 * Microalbumin Level Urine 07/14/23 * CBC w/ Auto Diff 07/14/23 * Comprehensive Metabolic Panel 07/14/23 * Lipid Panel 07/14/23 [facility] Future Appointments Appointment Date:10/19/2023 12:00:00 PM Scheduled Provider:Troy Coulter MD [facility] App[facility]ment Type:Cardiology Follow Up (FT) Appointment Date:07/09/2024 08:00:00 AM Scheduled Provider: Location:[facility]3] Appointment Type: Medicare Wellness Subsequent Future Scheduled Tests Laboratory* U Protein/Creat Ratio 07/14/23 * HgbA1c 2/8/24 * HgbA1c 07/26/23 * Microalbumin Level Urine 07/14/23 * CBC w/ Auto Diff 07/14/23 * Comprehensive Metabolic Panel 07/14/23 * Lipid Panel 07/14/23 [facility] Future Appointments Appointment Date:10/19/2023 12:00:00 PM Scheduled Provider:Troy Coulter MD [facility] Appointment Type:Cardiology Follow Up (FT) Appointment Date:01/10/2024 08:15:00 AM Scheduled Provider:Bryant TAO MD Location:[facility] Appointment Type:URO Office Visit Appointment Date:07/09/2024 08:00:00 AM Scheduled Provider: Location:[facility]3] Appointment Type:FM Medicare Wellness Subsequent Diagnostic Tests Pending * PSA Free & Total 12/05/23 Future Scheduled Tests Laboratory* U Protein/Creat Ratio 07/14/23 * HgbA1c 07/14/23 * HgbA1c 07/26/23 * Microalbumin Level Urine 07/14/23 * CBC w/ Auto Diff 07/14/23 * Comprehensive Metabolic Panel 07/14/23 * Lipid Panel 07/14/23 [facility] Evaluation + Plan note Future Appointments Appointment Date:11/22/2023 10:00:00 AM Scheduled Provider: Location:[facility] Appointment Type:Urology CALL PAT FT Appointment Date:11/28/2023 02:00:00 PM Scheduled Provider: Location:[facility] Appointment Type:Urology FT Appointment Date:11/28/2023 03:00:00 PM Scheduled Provider: Location:[facility] Appointment Type:Urology FT Appointment Date:12/16/2023 09:00:00 AM Scheduled Provider:Javier Goins MD [facility] Appointment Type:Cardiology Follow Up (FT) Appointment Date:01/10/2024 08:15:00 AM Scheduled Provider:Bryant TAO MD Location:[facility] Appointment Type:URO Office Visit Appointment Date:07/09/2024 08:00:00 AM Scheduled Provider: Location:[facility]3] Appointment Type: Medicare Wellness Subsequent Future Scheduled Tests Laboratory* U Protein/Creat Ratio 07/14/23 * HgbA1c 07/14/23 * HgbA1c 07/26/23 * Microalbumin Level Urine 07/14/23 * CBC w/ Auto Diff 07/14/23 * Comprehensive Metabolic Panel 07/14/23 * Lipid Panel 07/14/23 [facility] App[facility]ments Appointment Date:12/16/2023 09:00:00 AM Scheduled Provider:Javier Goins MD [facility] Appointment Type:Cardiology Follow Up (FT) Appointment Date:01/10/2024 08:15:00 AM Scheduled Provider:Bryant TAO MD Location:[facility] Appointment Type:URO Office Visit Appointment Date:07/09/2024 08:00:00 AM Scheduled Provider: Location:[facility]] Appointment Type:FM Medicare Wellness Subsequent Future Scheduled Tests Laboratory* U Protein/Creat Ratio 07/14/23 * HgbA1c 07/14/23 * HgbA1c 07/26/23 * Microalbumin Level Urine 07/14/23 * CBC w/ Auto Diff 07/14/23 * Comprehensive Metabolic Panel 07/14/23 * Lipid Panel 07/14/23 [facility] App[facility]ments Appointment Date:01/10/2024 08:15:00 AM Scheduled Provider:Bryant TAO MD Location:[facility] Appointment Type:URO Office Visit Appointment Date:01/13/2024 09:00:00 AM Scheduled Provider:Javier Goins MD [facility] Appointment Type:Cardiology Follow Up (FT) Appointment Date:07/09/2024 08:00:00 AM Scheduled Provider: Location:[facility]] Appointment Type:FM Medicare Wellness Subsequent Diagnostic Tests Pending * Urine Culture 12/22/23 Future Scheduled Tests Laboratory* U Protein/Creat Ratio 07/14/23 * HgbA1c 07/14/23 * HgbA1c 07/26/23 * Microalbumin Level Urine 07/14/23 * CBC w/ Auto Diff 07/14/23 * Comprehensive Metabolic Panel 07/14/23 * Lipid Panel 07/14/23 [facility] App[facility]ments Appointment Date:01/10/2024 08:15:00 AM Scheduled Provider:Bryant TAO MD Location:[facility] Appointment Type:URO Office Visit Appointment Date:01/13/2024 09:00:00 AM Scheduled Provider:Javier Goins MD [facility] Appointment Type:Cardiology Follow Up (FT) Appointment Date:07/09/2024 08:00:00 AM Scheduled Provider: Location:[facility]] Appointment Type: Medicare Wellness Subsequent Diagnostic Tests Pending * Magnesium Level 12/22/23 Future Scheduled Tests Laboratory* U Protein/Creat Ratio 07/14/23 * HgbA1c 07/14/23 * HgbA1c 07/26/23 * Microalbumin Level Urine 07/14/23 * CBC w/ Auto Diff 07/14/23 * Comprehensive Metabolic Panel 07/14/23 * Lipid Panel 07/14/23 [facility] App[facility]ments Appointment Date:01/10/2024 08:15:00 AM Scheduled Provider:Bryant TAO MD Location:[facility] Appointment Type:URO Office Visit Appointment Date:01/13/2024 09:00:00 AM Scheduled Provider:Javier Goins MD Location:[facility] Appointment Type:Cardiology Follow Up (FT) Appointment Date:07/09/2024 08:00:00 AM Scheduled Provider: Location:[facility]] Appointment Type: Medicare Wellness Subsequent Future Scheduled Tests Laboratory* U Protein/Creat Ratio 07/14/23 * HgbA1c 07/14/23 * HgbA1c 07/26/23 * Microalbumin Level Urine 07/14/23 * CBC w/ Auto Diff 07/14/23 * Comprehensive Metabolic Panel 07/14/23 * Lipid Panel 07/14/23 [facility] App[facility]ments Appointment Date:01/11/2024 08:00:00 AM Scheduled Provider: Location:[facility]] Appointment Type:FM Lab Draw Appointment Date:01/13/2024 09:00:00 AM Scheduled Provider:Javier Goins MD Location[facility] Appointment Type:Cardiology Follow Up (FT) Appointment Date:07/09/2024 08:00:00 AM Scheduled Provider: Location:[facility]3] Appointment Type: Medicare Wellness Subsequent Appointment Date:07/23/2024 08:15:00 AM Scheduled Provider:Bryant TAO MD Location:[facility] Appointment Type:URO Office Visit Diagnostic Tests Pending * PSA Free & Total 01/10/24 Future Scheduled Tests Laboratory* U Protein/Creat Ratio 07/14/23 * HgbA1c 07/14/23 * HgbA1c 07/26/23 * Microalbumin Level Urine 07/14/23 * CBC w/ Auto Diff 07/14/23 * Comprehensive Metabolic Panel 07/14/23 * Lipid Panel 07/14/23 * Magnesium Level 01/05/24 * Urine Culture 01/05/24 [facility] Evaluation + Plan note Future Appointments Appointment Date:01/13/2024 09:00:00 AM Scheduled Provider:Javier Goins MD [facility] Appointment Type:Cardiology Follow Up (FT) Appointment Date:07/09/2024 08:00:00 AM Scheduled Provider: Location:[facility]] Appointment Type: Medicare Wellness Subsequent Appointment Date:07/23/2024 08:15:00 AM Scheduled Provider:Bryant TAO MD Location:[facility] Appointment Type:URO Office Visit Future Scheduled Tests Laboratory* U Protein/Creat Ratio 07/14/23 * HgbA1c 07/14/23 * HgbA1c 07/26/23 * Microalbumin Level Urine 07/14/23 * CBC w/ Auto Diff 07/14/23 * Comprehensive Metabolic Panel 07/14/23 * Lipid Panel 07/14/23 [facility] + Plan note Future Appointments Appointment Date:07/09/2024 08:00:00 AM Scheduled Provider: Location:[facility]] Appointment Type: Medicare Wellness Subsequent Appointment Date:07/23/2024 08:15:00 AM Scheduled Provider:Bryant TAO MD Location:[facility] Appointment Type:URO Office Visit Future Scheduled Tests Laboratory* U Protein/Creat Ratio 07/14/23 * HgbA1c 07/14/23 * HgbA1c 07/26/23 * Microalbumin Level Urine 07/14/23 * CBC w/ Auto Diff 07/14/23 * Comprehensive Metabolic Panel 07/14/23 * Lipid Panel 07/14/23 [facility] evaluation + Plan note Future Appointments Appointment Date:07/24/2024 09:20:00 AM Scheduled Provider:TOSHIA Reddy APRN, [place] Location:[facility] Appointment Type:URO Office Visit Appointment Date:10/08/2024 08:15:00 AM Scheduled Provider:Nancy Grace MD Location:[facility]3] Appointment Type: Open Appointment Date:01/07/2025 08:15:00 AM Scheduled Provider:Nancy Grace MD Location:[facility]3] Appointment Type: Open Appointment Date:07/09/2025 08:00:00 AM Scheduled Provider: Location:[facility]3] Appointment Type: Medicare Wellness Subsequent Future Scheduled Tests Laboratory* U Protein/Creat Ratio 07/14/23 * HgbA1c 07/14/23 * HgbA1c 07/26/23 * Microalbumin Level Urine 07/14/23 * CBC w/ Auto Diff 07/14/23 * Comprehensive Metabolic Panel 07/14/23 * Lipid Panel 07/14/23 [facility] evaluation + Plan note Future Appointments Appointment Date:08/21/2024 09:00:00 AM Scheduled Provider:TOSHIA Reddy APRN, [place] Location:[facility] Appointment Type:URO Office Visit Appointment Date:10/08/2024 08:15:00 AM Scheduled Provider:Nancy Grace MD Location:[facility]3] Appointment Type: Open Appointment Date:01/07/2025 08:15:00 AM Scheduled Provider:Nancy Grace MD Location:[facility]3] Appointment Type: Open Appointment Date:07/09/2025 08:00:00 AM Scheduled Provider: Location:[facility] Appointment Type: Medicare Wellness Subsequent Future Scheduled Tests Laboratory* U Protein/Creat Ratio 07/14/23 * HgbA1c 07/14/23 * HgbA1c 07/26/23 * Microalbumin Level Urine 07/14/23 * PSA Free & Total 07/24/24 * CBC w/ Auto Diff 07/14/23 * Comprehensive Metabolic Panel 07/14/23 * Lipid Panel 07/14/23 [facility] Evaluation + Plan note Future Appointments Appointment Date:08/21/2024 09:00:00 AM Scheduled Provider:TOSHIA Reddy APRN, [place] Location:[facility] Appointment Type:URO Office Visit Appointment Date:10/08/2024 08:15:00 AM Scheduled Provider:Nancy Grace MD Location:[facility]3] Appointment Type: Open Appointment Date:01/07/2025 08:15:00 AM Scheduled Provider:Nancy Grace MD Location:[facility]3] Appointment Type: Open Appointment Date:07/09/2025 08:00:00 AM Scheduled Provider: Location:[facility]3] Appointment Type: Medicare Wellness Subsequent [facility] evaluation + Plan note Future Appointments Appointment Date:09/03/2024 08:20:00 AM Scheduled Provider:RAMANDEEP PORTER PA-C Location:[facility] Appointment Type:URO Office Visit Appointment Date:10/08/2024 08:00:00 AM Scheduled Provider:Nancy Grace MD Location:[facility]3] Appointment Type: Open Appointment Date:01/07/2025 08:15:00 AM Scheduled Provider:Nancy Grace MD Location:[facility]3] Appointment Type: Open Appointment Date:07/09/2025 08:00:00 AM Scheduled Provider: Location:[facility]3] Appointment Type: Medicare Wellness Subsequent [facility] evaluation + Plan note Future Appointments Appointment Date:10/08/2024 08:00:00 AM Scheduled Provider:Nancy Grace MD Location:[facility]3] Appointment Type: Open Appointment Date:01/07/2025 08:15:00 AM Scheduled Provider:Nancy Grace MD Location:[facility]3] Appointment Type: Open Appointment Date:07/09/2025 08:00:00 AM Scheduled Provider: Location:[facility]3] Appointment Type: Medicare Wellness Subsequent [facility] evaluation + Plan note Future Appointments Appointment Date:01/07/2025 08:20:00 AM Scheduled Provider:Nancy Grace MD Location:[facility]3] Appointment Type: Open Appointment Date:03/27/2025 08:00:00 AM Scheduled Provider: Location:[facility] Appointment Type:URO Nurse Visit Appointment Date:04/01/2025 08:15:00 AM Scheduled Provider:Bryant TAO MD Location:[facility] Appointment Type:URO Office Visit Appointment Date:07/09/2025 08:00:00 AM Scheduled Provider: Location:[facility]3] Appointment Type: Medicare Wellness Subsequent Future Scheduled Tests Laboratory* PSA Free & Total 09/25/24 * Magnesium Level 10/08/24 [facility] evaluation + Plan note Future Appointments Appointment Date:01/07/2025 08:20:00 AM Scheduled Provider:Nancy Grace MD Location:[facility]3] Appointment Type: Open Appointment Date:03/27/2025 08:00:00 AM Scheduled Provider: Location:[facility] Appointment Type:URO Nurse Visit Appointment Date:04/01/2025 08:15:00 AM Scheduled Provider:Bryant TAO MD Location:[facility] [place] Appointment Type:URO Office Visit Appointment Date:07/09/2025 08:00:00 AM Scheduled Provider: Location:[facility]3] Appointment Type: Medicare Wellness Subsequent Diagnostic Tests Pending * Urine Culture 11/14/24 Future Scheduled Tests Laboratory* PSA Free & Total 09/25/24 * Magnesium Level 10/08/24 [facility] evaluation + Plan note Future Appointments Appointment Date:04/09/2025 08:40:00 AM Scheduled Provider:MARINO KEARNS CNP Location:[facility]3] Appointment Type:FM Open Appointment Date:06/25/2025 09:15:00 AM Scheduled Provider:Bryant TAO MD Location:[facility] [place] Appointment Type:URO Office Visit Appointment Date:07/09/2025 08:00:00 AM Scheduled Provider: [facility] Type: Medicare Wellness Subsequent Diagnostic Tests Pending * PSA Free & Total 03/19/25 [facility] Evaluation noteNo assessment information available [facility] Work Phone: Evaluation note* Diagnosis Carpal tunnel syndrome on both sides- Primary Carpal tunnel syndrome Polyneuropathy Unspecified hereditary and idiopathic peripheral neuropathy documented in this encounter [facility] HealthcareEvaluation note* Diagnosis Carpal tunnel syndrome of right wrist- Primary Pain of right hand documented in this encounter [facility] HealthcareEvaluation note* Diagnosis Encounter for other preprocedural examination [facility] Diagnosis Preop examination Unspecified pre-operative examination documented in this encounter [facility] HealthcareEvaluation note* Diagnosis S/P carpal tunnel release- Primary Other postprocedural status documented in this encounter [facility] HealthcareEvaluation note* Diagnosis S/P carpal tunnel release- Primary Other postprocedural status documented in this encounter [facility] HealthcareHospital course Narrative No data available for this section [facility] No data available for this section [facility] Additional Instructions DISCHARGE INSTRUCTIONS FOR [...] your post-operative appointment in 1-2 weeks. [ ][facility] Work Phone: Hospital Discharge instructionsAmbulatory Orders* Referral to Gastroenterology Time Frame: 03/18/25, Location: None Selected [facility] Work Phone: InstructionsNot on filedocumented in this encounter [facility] No data available for this section [facility] N[facility]* Other Medical (Routine) - ClosedSpecialtyDiagnoses / ProceduresReferred By ContactReferred To Contact Neurology Diagnoses BUE EMG rt hand numbness in fingers, ref by Gustavo Kearns [employer] Procedures EMG Marino Kearns [facility] [address] [place] [address] Phone: tel: fax: Carlos Howe DO [address] [place] [address] Phone: tel: fax: Referral IDStatusReasonStart DateExpiration DateVisits RequestedVisits [id number] Perform Procedure / [facility] Healthcare Summary Purpose Family History Relationship Condition Age at Onset Recorded Date/T kamran Not Specified Diabetes mellitus Unknown HypertensionUnknownfatherHypertensionUnknownMalignant neoplasm of colonUnknown brotherHypertensionUnknown Relationship Condition Age at Onset Recorded Date/T kamran mother Diabetes mellitus Unknown HypertensionUnknownfatherHypertensionUnknownMalignant neoplasm of colonUnknown brotherHypertensionUnknown Advance Directives Advance Directive Response Recorded Date/ Time Advance Directives No April 01, 2017 10:34am Advance Directive Response Recorded Date/ Time Advance Directives No April 01, 2017 11:34am Chief Complaint and Reason for Visit Chief Complaint R97.20 Chief Complaint R97.20 R97.20 Chief Complaint R97.20 Elevated PSA Chief Complaint Admit Date Establish Care March 18, 2025 8 :01am Chief Complaint Admit Date Establish Care March 18, 2025 8 :01am Dysuria April 03, 2025 9 :40am Reason for Visit Admit Date BPH (benign prostatic hyperplasia) Octob er 2024 8:01am Diabetes March 18, 2025 8 :01am Elevated PSA measurement March 18 8:01am Hiatal hernia with GERD without esophagi tis March 18, 2025 8:01am Hypercholesteremia March 18, 2025 8 :01am Hypertension March 18, 2025 8 :01am Hypomagnesemia March 18, 2025 8 :01am Kidney disease March 18, 2025 8 :01am Nausea and vomiting March 18, 2025 8 :01am Reason for Visit Admit Date BPH (benign prostatic hyperplasia) Octob er 2024 8:01am Diabetes March 18, 2025 8 :01am Elevated PSA measurement March 18 8:01am Hiatal hernia with GERD without esophagi tis March 18, 2025 8:01am Hypercholesteremia March 18, 2025 8 :01am Hypertension March 18, 2025 8 :01am Hypomagnesemia March 18, 2025 8 :01am Kidney disease March 18, 2025 8 :01am Nausea and vomiting March 18, 2025 8 :01am Acute UTI April 03, 2025 9 :40am Chief Complaint Admit Date Establish Care March 18, 2025 8 :01am Dysuria April 03, 2025 9 :40am R30. April 03, 2025 1 0:00am ckd 2 April 17, 2025 10:13am Reason for Visit Admit Date BPH (benign prostatic hyperplasia) Octob er 2024 8:01am Diabetes March 18, 2025 8 :01am Elevated PSA measurement March 18 8:01am Hiatal hernia with GERD without esophagi [...] 2025 10:13am Secondary hyperparathyroidism April 062024 10:13am Type 2 diabetes mellitus wit h diabetic chronic kidney disease April 17, 2025 10:13am Additional Source Comments (unrecognized sect ion and [...] section and content) DATE CREATED AUTHOR 07/14/2022 [facility] DATE CREATED AUTHOR AUTHOR'S ORGANIZ ATION 12/26/2023 [facility] DATE CREATED AUTHOR AUTHOR'S ORGANIZ ATION 12/27/2023 [facility] DATE CREATED AUTHOR AUTHOR'S ORGANIZ ATION 12/29/2023 [facility] DATE CREATED AUTHOR AUTHOR'S ORGANIZ ATION 12/30/2023 [facility] DATE CREATED AUTHOR AUTHOR'S ORGANIZ ATION 12/31/2023 [facility] DATE CREATED AUTHOR AUTHOR'S ORGANIZ ATION 01/03/2024 [facility] DATE CREATED AUTHOR AUTHOR'S ORGANIZ ATION 01/08/2024 [facility] DATE CREATED AUTHOR AUTHOR'S ORGANIZ ATION 02/01/2024 [facility] DATE CREATED AUTHOR AUTHOR'S ORGANIZ ATION 02/03/2024 [facility] DATE CREATED AUTHOR AUTHOR'S ORGANIZ ATION 02/24/2024 [facility] DATE CREATED AUTHOR AUTHOR'S ORGANIZ ATION 07/11/2024 [facility] DATE CREATED AUTHOR AUTHOR'S ORGANIZ ATION 07/18/2024 [facility] DATE CREATED AUTHOR AUTHOR'S ORGANIZ ATION 07/26/2024 [facility] DATE CREATED AUTHOR AUTHOR'S ORGANIZ ATION 08/10/2024 [facility] DATE CREATED AUTHOR AUTHOR'S ORGANIZ ATION 08/17/2024 [facility] DATE CREATED AUTHOR AUTHOR'S ORGANIZ ATION 08/23/2024 [facility] DATE CREATED AUTHOR AUTHOR'S ORGANIZ ATION 09/05/2024 [facility] DATE CREATED AUTHOR AUTHOR'S ORGANIZ ATION 09/25/2024 [facility] DATE CREATED AUTHOR AUTHOR'S ORGANIZ ATION 09/25/2024 [facility] DATE CREATED AUTHOR AUTHOR'S ORGANIZ ATION 10/11/2024 [facility] DATE CREATED AUTHOR AUTHOR'S ORGANIZ ATION 10/12/2024 [facility] DATE CREATED AUTHOR AUTHOR'S ORGANIZ ATION 11/16/2024 [facility] DATE CREATED AUTHOR AUTHOR'S ORGANIZ ATION 11/19/2024 [facility] DATE CREATED AUTHOR AUTHOR'S ORGANIZ ATION 01/09/2025 [facility] DATE CREATED AUTHOR AUTHOR'S ORGANIZ ATION 01/10/2025 [facility] DATE CREATED AUTHOR AUTHOR'S ORGANIZ ATION 02/02/2025 [facility] DATE CREATED AUTHOR AUTHOR'S ORGANIZ ATION 03/10/2025 [facility] DATE CREATED AUTHOR AUTHOR'S ORGANIZ ATION 03/11/2025 [facility] DATE CREATED AUTHOR AUTHOR'S ORGANIZ ATION 03/13/2025 [facility] DATE CREATED AUTHOR AUTHOR'S ORGANIZ ATION 03/20/2025 [facility] DATE CREATED AUTHOR AUTHOR'S ORGANIZ ATION 04/11/2025 [facility] Patient Care team informatio n (unrecognized section and content) Team Status: Active Member Role Status Dates Nancy Grace MD Primary Care Provider Active Team Status: Inactive Member Role Status Dates Ramandeep Porter PA-C Attending Provider Active Start: July 18, 2023 End: July 18, 2023MOUSTAPHA [facility] Care ProviderActiveStart: July 18, 2023 End: July 18, 2023 Team Status: Inactive Member Role Status Dates Nancy Grace MD Primary Care Provider Active Start: July 21, 2023 End: July 21, 2023Nicolasa Yang ProviderActiveStart: July 21, 2023 End: July 21, 2023 Team Status: Inactive Member Role Status Dates Nancy Grace MD Primary Care Provider Active Start: September 09, 2023 End: September 09, 2023Bryant Tao MDAttcritical access hospital ProviderActiveStart: September 09, 2023 End: September 09, 2023Team MemberRelationshipSpecialtyStart DateEnd Date Nancy Grace MD [address] [place] [address] PCP - GeneralFamily Medicine07/18/24Team MemberRelationshipSpecialtyStart DateEnd Date Nancy Grace MD [address] [place] [address] PCP - GeneralFamily Medicine07/18/24Team MemberRelationshipSpecialtyStart DateEnd Date Tyrese Mcgrath MD PCP - GeneralFamily Medicine02/27/18Team MemberRelationshipSpecialtyStart DateEnd Date Nancy Grace MD [address] [place] [address] PCP - Generalmily Medicine07/18/24Team MemberRelationshipSpecialtyStart DateEnd Date Nancy Grace MD [address] [place] [address] PCP - [facility]07/18/24Team MemberRelationshipSpecialtyStart DateEnd Date Nancy Grace MD [address] [place] [address] PCP - [facility]07/18/24Team MemberRelationshipSpecialtyStart DateEnd Date Nancy Grace MD [address] [place] [address] PCP - [facility]07/18/24Team MemberRelationshipSpecialtyStart DateEnd Date Nancy Grace MD [address] [place] [address] PCP - [facility]07/18/24Team MemberRelationshipSpecialtyStart DateEnd Date Nancy Grace MD [address] [place] [address] PCP - [facility]07/18/24 Team Status: Active Member Role Status Dates Ivania Vale DO Primary Care Provider Active Team Status: Inactive Member Role Status Dates Ivania Vale DO Primary Care Provider Active S tart: March 18, 2025 End: March 18, 2025Ivania Vale DOAttending ProviderActiveStart: March 18, 2025 End: March 18, 2025 Team Status: Active Member Role/Relationship Status Dates Ivania Vale DO Primary Care Provider Active Team Status: Inactive Member Role/Relationship Status Dates Ivania Vale DO Primary Care Provider Active S tart: March 18, 2025 End: March 18, 2025Ivania Karma , DOAttending ProviderActiveStart: March 18, 2025 End: March 18, 2025 Team Status: Active Member Role/Relationship Status Dates Ivania Karma , DO Primary Care Provider Active S tart: March 20, 2025 Ivania Karma , DOAttending ProviderActiveStart: March 20, 2025 Team Status: Inactive Member Role/Relationship Status Dates Ivania Karma , DO Primary Care Provider Active S tart: April 03, 2025 End: April 03, 2025Brock Oropeza ProviderActiveStart: April 03, 2025 End: April 03, 2025 Team Status: Inactive Member Role/Relationship Status Dates Ivania Karma , DO Primary Care Provider Active S tart: March 18, 2025 End: March 18, 2025Ivania Karma , DOAttending ProviderActiveStart: March 18, 2025 End: March 18, 2025 Team Status: Active Member Role/Relationship Status Dates Ivania Karma , DO Primary Care Provider Active S tart: March 20, 2025 Ivania Karma , DOAttending ProviderActiveStart: March 20, 2025 Team Status: Inactive Member Role/Relationship Status Dates Ivania Karma , DO Primary Care Provider Active S tart: April 03, 2025 End: April 03, 2025Brock Oropeza ProviderActiveStart: April 03, 2025 End: April 03, 2025 Team Status: Inactive Member Role/Relationship Status Maria Guadalupe Encarnacion APRN Attending Provider Active Start: April 03, 2025 End: April 03, 2025 Team Status: Inactive Member Role/Relationship Status Maria Guadalupe Encarnacion APRN Attending Provider Active Start: April 03, 2025 End: April 03, 2025 Team Status: Inactive Member Role/Relationship Status Maria Guadaluep Dumont MD Attending Provider Active Start : April 17, 2025 End: April 17, 2025Ivania Karma , DOPrimary Care ProviderActiveStart: April 17, 2025 End: April 17, 2025 Goals (unrecognized section and content) Goals may be documented in a n alternate section Reason for Visit (unrecogniz ed section and content) ReasonCommentsPainReasonCommentsPre-op ExamReasonCommentsPost-op FOR RECORDS PERTAINING TO PATIENTS WHO ARE [...] BE BASED ON THE PRIMARY CLINICAL RECORDS. [facility]. provides no warranty or guarantee of the accuracy or completeness of information in this document.
--- NOTE | 2025-05-01 07:25 | US_ITS ---
The [address] [address] Patient Name: ALICJA REYES MRN: [id number] date: 1955 Sex: M Assigned Patient Location: [place] Current Patient Location: Accession/Order Number: [id number] Exam Date: 05/01/2025 07:26 Report Date: 05/01/2025 08:25 At the request of: LUISA ADAME Procedure: US renal BI BILATERAL RENAL AND BLADDER ULTRASOUND CLINICAL HISTORY: Hypertensive Renal Disease, Stage 3 Chronic Kidney Disease, low magnesium. COMPARISON: 07/14/2023 Estimation of renal size is approximately 11.4 cm on the right and 13.3 cm on the left. There is an echogenic focus at the midpole on the right measuring 1 cm in size. A stone is not excluded. No hydronephrosis is seen. No renal mass lesions were imaged. There is no perinephric fluid. The urinary bladder is partially distended with a volume of 494 mL. Urinary bladder wall appears borderline thickened. US/US renal BI IMPRESSION: POSSIBLE RIGHT NEPHROLITHIASIS. NO OBSTRUCTIVE UROPATHY. SLIGHT URINARY BLADDER WALL THICKENING. CORRELATION IS RECOMMENDED TO EXCLUDE ANY POSSIBILITY OF CYSTITIS. Impression dictated by: Keiry Kelsey M.D. 05/01/2025 8:25 AM Dictation Location: [place] [address] Electronically authenticated by: [id number] Y Date: 05/01/2025 08:25
== END 2025-05-01 06:51 | disposition home or self-care (01) ==
LOC: US 06:51
PROVIDERS: PCP Family Medicine; Visit Provider Internal Medicine
DX: N25.81 Secondary hyperparathyroidism of renal origin (principal); I12.9 Hypertensive chronic kidney disease with stage 1 through stage 4 chronic kidney disease, or unspecified chronic kidney disease; E11.22 Type 2 diabetes mellitus with diabetic chronic kidney disease; N18.30 Chronic kidney disease, stage 3 unspecified; E83.42 Hypomagnesemia; N40.1 Benign prostatic hyperplasia with lower urinary tract symptoms
CPT/HCPCS: 76775

== ENCOUNTER 2025-05-01 06:52 | Outpatient (OUT) | payer MEDICARE, OTHER, SELFPAY ==
--- OUTSIDE RECORDS SUMMARY | 2025-05-01 06:57 | XMS_ITS | CCD ---
Author Organization [facility] Providers Care Pediatric Registered Nurse Name Role Phone DR TYRESE MCGRATH Admitting Unavailable ASH, DR TYRESE Green Attending Unavailable DR TYRESE MCGRATH Primary Care Unavailable DR TYRESE MCGRATH Consulting Unavailable Nancy Grace Primary Care Physician [phone] GINO Porter Attending Provider MD Nancy Grace Primary Care Provider MD Nancy Grace Primary Care Provider GINO Porter Attending Provider MD Bryant Tao Attending Provider AMRINO KEARNS Attending Unavailable MARINO KEARNS Admitting Unavailable [...] KEARNS MARINO A Admitting Unavailabl e SHIRA, GELATIN MAKER UTILITY MARINO A Attending Unavailabl e Jacinto Ramirez [...] PORTER Attending Unavailable Bryant TAO Attending Unavailable MINDIRAMNADEEP PEDRAZA Admitting Unavailable MINDIRAMANDEEP PEDRAZA Attending Unavailable [...] Attending Unavailable Nancy Grace Attending Unavailable SHIRA, GELATIN MAKER UTILITY MARINO A Attending Unavailabl e Nancy Grace Admitting Unavailable Nancy Grace Attending Unavailable SHIRA, GELATIN MAKER UTILITY MARINO A Attending Unavailabl e Nancy Grace Attending Unavailable SHIRA, GELATIN MAKER UTILITY MARINO A Admitting Unavailabl e SHIRA, GELATIN MAKER UTILITY MARINO A Attending Unavailabl e SHIRA, GELATIN MAKER UTILITY MARINO A Attending Unavailabl e SHIRA, MARINO [...] Unavailable SHIRA, MARINO A Attending Unavailable SHIRA, GELATIN MAKER UTILITY MARINO A Attending Unavailabl e SHIRA, GELATIN MAKER UTILITY MARINO A Admitting Unavailabl e Karma Ivania LICONA Primary Care Provider Karma Ivania LICONA Attending Provider Bryant TAO Attending Unavailable Nancy Grace Admitting Unavailable Nancy Grace Attending Unavailable GINO PORTER Admitting Unavailab GINO Kingsley Attending Unavailab le Bryant TAO Attending Unavailable Bryant TAO Attending Unavailable Clara Encarnacion APRN Attending Provider Clara Encarnacion Attending Unavailable Clara Encarnacion Admitting Unavailable Karma Ivania Primary Care Provider Ivania Vale DO Attending Provider [phone] Clara Encarnacion APRN Attending Provider Fernando Dumont MD Attending Provider [phone] Allergies Allergy ClassificationReported Allergen(s)Allergy TypeDate of OnsetReaction(s) Facility (20 sources)celecoxib; Translations: [CeleBREX]Drug AllergyThe [facility] (1 source)CetirizineDrug AllergyThe [facility] (20 sources)celecoxib; Translations: [celecoxib]Drug AllergyUnknown (qualifier value), Anxiety (finding)[facility] (10 sources)celecoxibDrug [id number], [facility] (1 source)celecoxibDrug Dsafpai63-54-5580G[facility]udembhC[facility] Medications Current Medications MedicationDrug Class(es)DatesSig (Normalized)Sig (Original)0.25 MG, 0.5 MG Dose 3 ML semaglutide 0.68 MG/ML Pen Injector [Ozempic] (4 sources)Start: 72-59-7432Icbbmaf 2 mg/3 mL (0.25 mg or 0.5 mg dose) subcutaneous solution 0.25 mg, SubCutaneous, qWeek, # 3 mL, Refills(s) 0, Pharmacy: [facility]/pharmacy #[id number], 175.3, cm, 07/16/24 8:18:00 EST, Height/Length Dosing, 114, kg, 07/16/24 8:18:00 EST, Weight Dosing Start Date: 07/16/24 Status: Ordered Quantity: 3.0 Unit: mL Repeat number: 1 Indications: Personal history of nicotine dependence; Type 2 diabetes mellitus with other specified complication; Body mass index [BMI] 37.0-37.9, adult; Obesity, unspecified; H ypomagnesemia;Start: 06-27-7200Vislmrz 2 mg/3 mL (0.25 mg or 0.5 mg dose) subcutaneous solution 0.25 mg, SubCutaneous, qWeek, # 3 mL, Refills(s) 0, Pharmacy: [facility]/pharmacy #[id number], 175.3, cm, 07/16/24 8:18:00 EST, Height/Length Dosing, 114, kg, 07/16/24 8:18:00 EST, Weight Dosing Start Date: 07/16/24 Status: Orderedacetaminophen 325 mg oral tablet (3 sources)Start: 92-74-6811wwdt 2 tablets by mouth every six hours as needed for painacetaminophen 325 mg Tab 650 mg = 2 tab(s), Oral, q6hr, PRN Pain, Refills(s) 0 Start Date: 12/30/23 Status: Orderedacetaminophen 325 mg / HYDROcodone bitartrate 5 mg oral tablet (1 source)Opioid AgonistStart: 24-87-3866xfjafwtjbfzoi-hydrocodone 325 mg-5 mg oral tablet Refill(s) 0, 12 tab(s), 0 Refill(s) Start Date: 11/14/24 Status: Ordered Repeat number: 1amLODIPine 5 mg oral tablet (20 sources)Dihydropyridine Calcium Channel BlockerStart: 20-38-4374owxg 1 tablet by mouth once dailyAmlodipine 5 mg tablet Active 5 MG PO Daily April 17, 2025 10:39am Complies with drug therapyStart: 73-74-5273lkFBFSRjsk 5 mg Tab See Instructions, TAKE 1 TABLET DAILY, # 90 tab(s), Refills(s) 3, Pharmacy: [facility], 174, cm, 10/08/24 7:59:00 EDT, Height/Length Dosing, 113, kg, 10/08/24 7:59:00 EDT, Weight Dosing Start Date: 10/16/24 Status: Ordered Quantity: 90.0 Unit: tab(s) Repeat number: 1Start: 91-02-1353boxl 10 mg by mouth once dailyAmlodipine Active 10 MG PO Daily September 09, 2023 12:00am Start: 08-19-2023 End: 70-74-9688maso 2 tablets by mouth once dailyAmlodipine 5 mg tablet Discontinued 10 MG PO Daily September 08, 2023 11:00pm April 17, 2025 10:40am Start: 29-24-5654swVKNQPxor 5 mg Tab See Instructions, TAKE 1 TABLET DAILY, # 90 tab(s), Refills(s) 1, Pharmacy: [facility], 175.3, cm, 01/13/24 9:06:00 EDT, Height/Length Dosing, 110.9, kg, 01/13/24 9:06:00 EDT, Weight Dosing Start Date: 01/30/24 Status: Orderedamoxicillin 500 mg oral capsule (2 sources)Penicillin-class AntibacterialStart: 68-23-5089xkah 1 capsule by mouth every twelve hoursamoxicillin 500 mg Cap 500 mg = 1 cap(s), Oral, q12hr, # 20 cap(s), Refills(s) 0, Pharmacy: [facility]/pharmacy #[id number], 175.3, cm, 01/05/24 7:50:00 EDT, Height/Length Dosing, 110, kg, 01/05/24 7:50:00 EDT, Weight Dosing Start Date: 01/05/24 Status: Orderedaspirin 81 mg delayed release oral tablet (19 sources)Platelet Aggregation Inhibitor, Nonsteroidal Anti-inflammatory Drug Start: 16-09-5879ngzh 1 tablet by mouth once dailyaspirin 81 mg Oral EC Tab 81 mg = 1 tab(s), Oral, Daily, # 90 tab(s), Refills(s) 0, Pharmacy: [facility], 174.5, cm, 06/13/23 8:07:00 EST, Height/Length Dosing, 102.3, kg, 06/13/23 8:07:00 EST, Weight Dosing Start Date: 06/13/23 Status: Orderedatorvastatin 20 mg oral tablet (20 sources)HMG-CoA Reductase InhibitorStart: 12-60-8648rexh 1 tablet by mouth once dailyAtorvastatin 20 mg tablet Active 20 MG PO Daily March 20, 2025 11:00pm Complies with drug therapyStart: 01-30-2024 End: 20-48-8829icsb 1 tablet by mouth once dailyAtorvastatin 40 mg tablet Discontinued 40 MG PO Daily March 14, 2025 11:00pm March 21, 2025 11:08am Start: 33-34-7273utop 1 tablet by mouth once dailyatorvastatin 40 mg Tab 40 mg = 1 tab(s), Oral, Daily, # 90 tab(s), Refills(s) 1, Pharmacy: [facility], 174.5, cm, 06/13/23 8:07:00 EST, Height/Length Dosing, 102.3, kg, 06/13/23 8:07:00 EST, Weight Dosing Start Date: 06/13/23 Status: OrderedStart: 30-13-3365klmt 1 tablet by mouth at bedtimeatorvastatin 20 mg Tab 20 mg = 1 tab(s), Oral, Bedtime, # 90 tab(s), Refills(s) 1, Pharmacy: [facility], 174.5, cm, 02/14/23 7:27:00 EDT, Height/Length Dosing, 115.8, kg, 02/14/23 7:27:00 EDT, Weight Dosing Start Date: 02/14/23 Status: OrderedStart: 25-65-8484hmga 1 tablet by mouth at bedtimeatorvastatin 20 mg Tab 20 mg = 1 tab(s), Oral, Bedtime, Refills(s) 0 Start Date: 01/13/23 Status: Orderedciprofloxacin 500 mg oral tablet (15 sources)Quinolone AntimicrobialStart: 11-14-2024 End: 40-54-7054awhh 1 tablet by mouth every twelve hoursCipro [...] and giddiness; Other microscopic hematuria;Start: 12-22-2023 End: 96-53-6938vszg 1 tablet by mouth every twelve hoursCipro 500 mg Tab 500 mg = 1 tab(s), Oral, q12hr, X 7 day(s), # 14 tab(s), Refills(s) 0, Pharmacy: [facility], 172, cm, 12/22/23 7:41:00 EDT, Height/Length Dosing, 107.8, kg, 12/22/23 7:41:00 EDT, Weight Dosing Start Date: 12/22/23 Stop Date: 12/29/23 Status: OrderedStart: 72-74-6261Etexv 500 mg Tab See Instructions, Take 1 tab day prior to procedure and 1 tab day of procdure - afterwards, # 2 tab(s), Refills(s) 0, Pharmacy: [facility]/pharmacy #[id number], 174.5, cm, 09/22/23 12:37:00 EDT, Height/Length Dosing, 105.9, kg, 09/22/23 12:37:00 EDT, Weight Dosing Start Date: 09/27/23 Status: OrderedStart: 12-79-8468yhxr 1 tablet by mouth twice dailyCipro 500 mg Tab 500 mg = 1 tab(s), Oral, BID, start 3 days prior to procedure, # 14 tab(s), Refills(s) 0, Pharmacy: [facility]/pharmacy #[id number], 174.5, cm, 07/27/23 11:17:00 EST, Height/Length Dosing, 102.3,kg, 07/27/23 11:17:00 EST, Weight Dosing Start Date: 08/03/23 Status: OrderedStart: 04-02-6153Kwsxa 500 mg Tab See Instructions, Take 1 tab day prior to procedure and 1 tab day of procdure - afterwards, # 2 tab(s), Refills(s) 0, Pharmacy: [facility]/pharmacy #[id number], 175.4, cm, 06/28/23 7:53:00 EST, Height/Length Dosing, 106.8, kg, 06/28/23 7:53:00 EST, Weight Dosing Start Date: 06/28/23 Status: OrderedStart: 04-04-2023 End: 60-86-0667dzov 1 tablet by mouth every twelve hoursCipro 500 mg Tab 500 mg = 1 tab(s), Oral, q12hr, X 10 day(s), # 20 tab(s), Refills(s) 0 Start Date: 04/04/23 Stop Date: 04/14/23 Status: Orderedfamotidine 20 mg oral tablet (2 sources)Histamine-2 Receptor AntagonistStart: 11-33-0705wchs 1 tablet by mouth twice dailyPepcid 20 mg Tab 20 mg = 1 tab(s), Oral, BID, # 180 tab(s), Refills(s) 0, Pharmacy: [facility], 172, cm, 12/27/23 7:51:00 EDT, Height/Length Dosing, 109.8, kg, 12/27/23 7:51:00 EDT, Weight Dosing Start Date: 12/27/23 Status: OrderedFreestyle Alejandra 2 Flash Glucose Monitoring 14 Day System ([place]) (6 sources)Start: 84-66-5769Eeudjelta Alejandra 2 Flash Glucose Monitoring 14 Day System ([place]) Freestyle Alejandar 2 Flash Glucose Monitoring 14 Day System ([place]), See Instructions, 1 EA, 0, Freestyle Alejandra Flash Glucose Monitoring 14 Day System ([place]), [facility]/pharmacy #[id number], Supply, 174.5, cm, 02/14/23 7:27:00 EDT, Height/LengthDosing, 115.8, kg, 02/14/23 7:27:00 EDT, Weight Dosing Start Date: 02/14/23 Status: OrderedFreestyle Alejandra Flash 2 Glucose Monitoring 14 Day System ([place]) (6 sources)Start: 03-61-6565Eocdnspyi Alejandra Flash 2 Glucose Monitoring 14 Day System (Sensor) Freestyle Alejandra Flash 2 Glucose Monitoring 14 Day System (Sensor), See Instructions, 6 EA, 0, Freestyle Alejandra Flash Glucose Monitoring 14 Day System (Sensor). Replace sensor every 14 days., [facility]/pharmacy #[id number], Supply, 174.5, cm, 02/14/23 7:27:00 EDT, Height/Length Dosing, 115.8, kg, 02/14/23 7:27:00 EDT, Weight Dosing Start Date: 02/14/23 Status: OrderedglipiZIDE 5 mg oral tablet (20 sources)SulfonylureaStart: 19-87-0269pyvh 1 tablet by mouth once daily Glipizide 5 mg tablet Active 5 MG PO Daily 30 April 08, 2025 12:00am Complies with drug therapyStart: 09-09-2023 End: 56-98-0238yvnx 1 tablet by mouth once dailyGlipizide 5 mg tablet Discontinued 5 MG PO Daily September 08, 2023 11:00pm March 15, 2025 7:38am Start: 26-72-0684hehq 2 tablets by mouth twice dailyglipiZIDE 5 mg Tab 10 mg = 2 tab(s), Oral, BID, # 360 tab(s), Refills(s) 1, Pharmacy: [facility], 174.5, cm, 05/26/23 9:14:00 EST, Height/Length Dosing, 109.1, kg, 05/26/23 9:14:00 EST, Weight Dosing Start Date: 05/26/23 Status: OrderedStart: 35-63-7181uuwn 1 tablet by mouth twice dailyglipiZIDE 5 mg Tab 5 mg = 1 tab(s), Oral, BID, # 90 tab(s), Refills(s) 1, Pharmacy: [facility], 174.5, cm, 05/16/23 7:26:00 EST, Height/Length Dosing, 113.4, kg, 05/16/23 7:26:00 EST, Weight Dosing Start Date: 05/16/23 Status: Ordered Start: 91-72-1602yqdw 1 tablet by mouth once dailyglipiZIDE 5 mg Tab 5 mg = 1 tab(s), Oral, Daily, # 90 tab(s), Refills(s) 1, Pharmacy: [facility], 174.5, cm, 02/14/23 7:27:00 EDT, Height/Length Dosing, 115.8, kg, 02/14/23 7:27:00 EDT, Weight Dosing Start Date: 02/14/23 Status: OrderedStart: 68-79-9215dlqb 1 tablet by mouth in the morningglipiZIDE 5 mg Tab See Instructions, Take one orally in the morning if blood sugar is > 170, Refi lls(s) 0 Start Date: 01/13/23 Status: OrderedhydroCHLOROthiazide 12.5 mg oral tablet (1 source)Thiazide DiureticStart: 73-07-4708ycyp 1 tablet by mouth once daily Hydrochlorothiazide 12.5 mg tablet Active 12.5 MG PO Daily 90 April 17, 2025 12:00am Complies with drug therapyhydroCHLOROthiazide 12.5 mg / lisinopril 20 mg oral tablet (20 sources)Thiazide Diuretic, Angiotensin Converting Enzyme InhibitorStart: 08-23-6559hniptmfuudsgtyfyzml-lisinopril 12.5 mg-20 mg Tab 1 tab(s), Oral, Daily, 90 tab(s), Refill(s) 0, other reason (Rx) Start Date: 10/19/23 Status: OrderedStart: 05-18-2017 End: 98-32-7584pwao 1 tablet by mouth once dailyLisinopril-Hydrochlorothiazide 20-12.5 tablet Discontinued 1 TAB PO Daily May 18, 2017 12:00am September 09, 2023 10:40amStart: 04-04-2017 End: 13-96-8969jhgf 1 tablet by mouth once dailyLisinopril-Hydrochlorothiazide 10-12.5 mg Tablet Discontinued 1 TAB PO Daily April 03, 2017 11:00pm May 18, 2017 12:12pm htnlisinopril 40 mg oral tablet (20 sources)Angiotensin Converting Enzyme InhibitorStart: 20-18-3131lysl 1 tablet by mouth once dailyLisinopril 40 mg tablet Active 40 MG PO Daily March 14, 2025 11:00pm Complies with drug therapyStart: 12-30-2023 End: 52-57-6162kuagkhjraj 20 mg Tab 40 mg = 2 tab(s), Tab, Oral, NOW, Start date 12/30/23 12:26:00 PM EDT, 12/30/2411:26:00 EDT Start Date: 12/30/23 Stop Date: 12/30/23 Status: Xmewsswxx85 hr metFORMIN hydrochloride 500 mg extended release oral tablet (20 sources)BiguanideStart: 92-64-9059aurr 2 tablets by mouth twice daily Glucophage XR 500 mg Tab-ER 1,000 mg = 2 tab(s), Oral, BID, # 360 tab(s), Refills(s) 3, Pharmacy: [facility], 174, cm, 10/08/24 7:59:00 EDT, Height/Length Dosing, 113, kg, 257:59:00 EDT, Weight Dosing Start Date: 10/08/24 Status: Ordered Quantity: 360.0 Unit: tab(s) Repeat number: 4Start: 98-08-3781wwjt 2 tablets by mouth twice dailyGlucophage XR 500 mg Tab-ER 1,000 mg = 2 tab(s), Oral, BID, # 360 tab(s), Refills(s) 1, Pharmacy: [facility], 175.3, cm, 01/13/24 9:06:00 EDT, Height/Length Dosing, 110.9, kg, 01/13/24 9:06:00 EDT, Weight Dosing Start Date: 04/12/24 Status: OrderedStart: 21-70-5695jwaq 2 tablets by mouth twice dailyGlucophage XR 500 mg Tab-ER 1,000 mg = 2 tab(s), Oral, BID, # 360 tab(s), Refills(s) 1, Pharmacy: [facility], 174, cm, 07/26/23 10:21:00 EST, Height/Length Dosing, 104.8, kg, 07/26/23 10:21:00 EST, Weight Dosing Start Date: 07/26/23 Status: OrderedStart: 26-75-7534udam 2 tablets by mouth twice dailyGlucophage XR 500 mg Tab-ER 1,000 mg = 2 tab(s), Oral, BID, # 360 tab(s), Refills(s) 1, Pharmacy: [facility], 174.5, cm, 06/13/23 8:07:00 EST, Height/Length Dosing, 102.3, kg, 06/13/23 8:07:00 EST, Weight Dosing Start Date: 06/13/23 Status: OrderedStart: 11-15-2022 End: 80-32-8001wogq 2 tablets by mouth once dailymetformin 500 mg Tab 1,000 mg = 2 tab(s), Oral, Daily, X 90 day(s), # 180 tab(s), Refills(s) 3, Pharmacy: [facility] Start Date: 11/15/22 Stop Date: 11/10/23 Status: OrderedStart: 04-04-2017 End: 45-02-1170nowl 1 tablet by mouth twice dailyMetformin 500 mg Tablet Discontinued 500 MG PO Twice daily April 03, 2017 11:00pm March 8:17am dmmetFORMIN (Glucophage) 500 MG tablet every 12 (twelve) hours Qxqgxo65 hr metoprolol succinate 25 mg extended release oral tablet (20 sources)beta-Adrenergic BlockerStart: 04-17-2025 End: 51-61-7068tcuk 1 tablet by mouth twice dailyMetoprolol Succinate 25 mg tablet extended release 24 hr Active 25 MG PO Twice daily 180 1 2024 10:40am Complies with drug therapyStart: 08-19-2023 End: 84-85-4972bxmu 1 tablet by mouth once dailyMetoprolol Succinate 25 mg tablet extended release 24 hr Discontinued 25 MG PO Daily September 08, 2023 11:00pm April 17, 2025 10:40amMisc DME Prescription (20 sources)Start: 52-58-4705Pvlud: 80-27-0470Kvtf DME Prescription [facility] D[facility] Prescription, See Instructions, 1 kit(s), 0, One Touch Ultra 2 glucose meter kit Use to tests sugars daily E11.9, [facility], Supply, 174.5, cm, 05/26/23 9:14:00 EST, Height/Length Dosing, 109.1, kg, 05/26/23 9:14:00 EST, Weight Dosing Start Date: 05/26/23 Status: OrderedMultiple Vitamins Tab (1 source)Start: 23-37-7069mbns 1 tablet by mouth once dailyMultiple Vitamins Tab 1 tab(s), Oral, Daily, Refill(s) 0, Prophylaxis Start Date: 11/15/12 Status: Orderednaproxen sodium 220 mg oral tablet (20 sources)Nonsteroidal Anti-inflammatory DrugStart: 40-77-8261uttg 220 mg by mouth every twelve hours as neededAleve 220 mg, Oral, q12hr, se as needed, Refills(s) 0 Start Date: 01/13/24 Status: Ordered Repeat number: 1Start: 05-13-2017 End: 93-66-2889uoin 2 tablets by mouth twice dailyNaproxen Sodium (Aleve) 220 mg Tablet Discontinued 440 MG PO Twice daily May 13, 2017 12:00amDecember 2016 12:56pm painomeprazole 20 mg delayed release oral capsule (20 sources)Proton Pump InhibitorStart: 93-63-4027rrma 1 capsule by mouth once dailyomeprazole 20 mg Cap-DR See Instructions, TAKE 1 CAPSULE BY MOUTH EVERY DAY, # 90 cap(s), Refills(s) 4, Pharmacy: [facility]/pharmacy #[id number], 174, cm, 09/03/24 8:26:00 EDT, Height/Length Dosing, 112, kg, 09/03/24 8:26:00 EDT, Weight Dosing Start Date: 09/04/24 Status: Ordered Quantity: 90.0 Unit: cap(s) Repeat number: 5 Start: 58-65-2767hmdl 1 capsule by mouth once dailyomeprazole 20 mg Cap-DR 20 mg = 1 cap(s), Oral, Daily, # 30 cap(s), Refills(s) 0 Start Date: 01/10/24Status: OrderedStart: 88-33-9870xtpk 1 capsule by mouth once dailyOmeprazole 40 mg capsule,delayed release(DR/EC) Active 40 MG PO Daily September 08, 2023 11:00pm Complies with drug therapyStart: 50-84-7323ulqa 1 capsule by mouth once daily omeprazole 40 mg Cap-DR 40 mg = 1 cap(s), Oral, Daily, # 90 cap(s), Refills(s) 0, Pharmacy: [facility], 174, cm, 07/26/23 10:21:00 EST, Height/Length Dosing, 104.8, kg, 07/26/23 10:21:00 EST, Weight Dosing Start Date: 07/26/23 Status: OrderedStart: 29-57-8445erip 1 capsule by mouth once daily omeprazole 40 mg Cap-DR 40 mg = 1 cap(s), Oral, Daily, # 90 cap(s), Refills(s) 0, Pharmacy: [facility], 174.5, cm, 06/21/23 13:33:00 EST, Height/Length Dosing, 102.3, kg, 06/21/23 13:33:00 EST, Weight Dosing Start Date: 06/23/23 Status: Orderedondansetron 4 mg disintegrating oral tablet (10 sources)Serotonin-3 Receptor AntagonistStart: 25-98-0756ozxy 1 tablet by mouth every eight hours as needed for nausea and vomitingOndansetron 4 mg tablet,disintegrating Active 4 MG PO Every 8 hours as needed for nausea and vomiting March 17, 2025 11:00pm Complies with drug therapyStart: 94-57-2200wiam 1 tablet by mouth every six hours as needed for nauseaZofran 4 mg Tab 4 mg = 1 tab(s), Oral, q6hr, PRN Nausea, # 8 tab(s), Refills(s) 1, Pharmacy: [facility]/pharmacy #[id number], 174, cm, 01/29/25 7:51:00 EDT, Height/Length Dosing, 109.7, kg, 01/29/25 7:51:00 EDT, Weight Dosing Start Date: 01/29/25 Status: Ordered Quantity: 8.0 Unit: tab(s) Repeat number: 2 Indications: Personal history of nicotine dependence; Dysuria; Obesity, unspecified; Body mass index [BMI]36.0-36.9, adult;Start: 09-09-2023 End: 19-00-3915Giwazqrynld 4 mg tablet,disintegrating Discontinued 4 MG TRANSLINGU Every 8 hours as needed for nausea September 08, 2023 11:00pm March 15, 2025 7:39amtamsulosin hydrochloride 0.4 mg oral capsule (20 sources)alpha-Adrenergic BlockerStart: 15-31-6364msqj 1 capsule by mouth every twenty-four hourstamsulosin (Flomax) 0.4 MG 24 hr capsule Take 0.4 mg by mouth 05/07/2024 ActiveStart: 49-76-1260ofpr 1 capsule by mouth once daily Tamsulosin 0.4 mg capsule Active 0.4 MG PO Daily March 14, 2025 11:00pm Complies with drug therapyStart: 52-31-1839slzz 1 capsule by mouth once daily in the eveningtamsulosin 0.4 mg Cap 0.4 mg = 1 cap(s), Oral, qPM, # 90 cap(s), Refills(s) 3, Pharmacy: [facility], 175.3, cm, 01/13/24 9:06:00 EDT, Height/Length Dosing, 110.9, kg, 01/13/24 9:06:00 EDT, Weight Dosing Start Date: 01/20/24 Status: OrderedStart: 26-11-0076lmyf 1 capsule by mouth once daily in the eveningtamsulosin 0.4 mg Cap 0.4 mg = 1 cap(s), Oral, qPM, Refills(s) 0 Start Date: 06/14/23 Status: OrderedStart: 86-37-8690xhvc 1 capsule by mouth at bedtimetamsulosin 0.4 mg Cap 0.4 mg = 1 cap(s), Oral, Bedtime, Refills(s) 0 Start Date: 01/13/23 Status: OrderedTherapeutic Multiple Vitamin Tab (12 sources)Start: 54-25-6212Pmsesidlwpt Multiple Vitamin Tab See Instructions, 90 cap(s), Refill(s) 0, Oral Daily Start Date: 12/30/23 Status: Ordered Quantity: 90.0 Unit: cap(s) Repeat number: 1Start: 77-83-8974Fgmcbqlcftm Multiple Vitamin Tab See Instructions, 90 cap(s), Refill(s) 0, Oral Daily Start Date: 12/30/23 Status: OrderedVitamin B Complex oral capsule (1 source)Start: 09-66-3283tmrz 1 capsule by mouth once dailyVitamin B Complex oral capsule 1 cap(s), Oral, Daily, Refill(s) 0, Prophylaxis Start Date: 11/15/12 Status: Orderedvitamin b12 1 mg oral tablet (6 sources)Vitamin H19Eqcna: 79-90-4426myfx 1 tablet by mouth once daily cyanocobalamin 1000 mcg Tab 1,000 mcg = 1 tab(s), Oral, Daily, # 90 tab(s), Refills(s) 0, Pharmacy:[facility], 175.3, cm, 01/13/24 9:06:00 EDT, Height/Length Dosing, 110.9, kg, 01/13/24 9:06:00 EDT, Weight Dosing Start Date: 01/26/24 Status: OrderedStart: 07-45-5438nkkk 1 tablet by mouth once dailycyanocobalamin 1000 mcg Tab 1,000 mcg = 1 tab(s), Oral, Daily, # 30 tab(s), Refills(s) 0, Pharmacy:[facility]/pharmacy #[id number], 172, cm, 12/29/23 13:54:00 EDT, Height/Length Dosing, 109.8, kg, 12/29/23 13:54:00 EDT, Weight Dosing Start Date: 12/30/23 Status: OrderedZofran ODT 4 mg Tab-Dis (14 sources)Start: 61-51-8728foti 1 tablet by mouth every eight hours as needed for nauseaZofran ODT 4 mg Tab-Dis 4 mg = 1 tab(s), Oral, q8hr, PRN Nausea/Vomiting, # 12 tab(s), Refills(s) 0, Pharmacy: [facility]/pharmacy #[id number], 172, cm, 08/15/23 7:04:00 EDT, Height/Length Dosing, 107.2, kg, 08/15/23 7:04:00 EDT, Weight Dosing Start Date: 08/15/23 Status: OrderedStart: 15-55-0786iixp 1 tablet by mouth every eight hours as needed for nauseaZofran ODT 4 mg Tab-Dis 4 mg = 1 tab(s), Oral, q8hr, PRN Nausea/Vomiting, # 12 tab(s), Refills(s) 0, [id number], 175.4, cm, 06/28/23 7:53:00 EST, Height/Length Dosing, 106.8, kg, 06/28/23 7:53:00 EST, Weight Dosing Start Date: 07/13/23 Status: Ordered Completed/Discontinued Medications MedicationDrug Class(es)DatesSig (Normalized)Sig (Original)acetaminophen 325 mg / oxyCODONE hydrochloride 5 mg oral tablet (14 sources)Opioid AgonistStart: 05-19-2017 End: 36-01-2871dymb 1 tablet by mouth every six hours as needed for pain Oxycodone-Acetaminophen 5-325 mg Tablet Discontinued 1 TAB PO Q6H as needed for Pain Scale 1 - 5 4014 0 May 19, 2017 12:00am September 09, 2023 10:44am Start: 04-04-2017 End: 95-15-2921zuiz 1 tablet by mouth every twelve hours as needed for pain Oxycodone-Acetaminophen (Percocet) 5-325 mg Tablet Discontinued 1 TAB PO Q12H as needed for Pain April 03, 2017 11:00pm September 09, 2023 10:40amamoxicillin 500 mg / clavulanate 125 mg oral tablet (2 sources)Penicillin-class AntibacterialStart: 04-03-2025 End: 89-68-6570dgkn 1 tablet by mouth every eight hoursAmoxicillin-Pot Clavulanate 500-125 mg tablet Discontinued 1 TAB PO Q8H 30 10 0 April 02, 2025 11:00pm April 17, 2025 10:21amcephalexin 500 mg oral capsule (13 sources)Cephalosporin AntibacterialStart: [id number] 500 mg Cap 500 mg = 1 cap(s), Oral, As Directed, Pt to take 1 tab the day before procedure and the 2nd tab the day of procedure once completed., # 2 cap(s), Refills(s) 0, Pharmacy: [facility]/pharmacy #[id number], 174.5, cm, 09/22/23 12:37:00 EDT, Height/Length Dosing, 105.9, kg, 09/22/23 12:37:00 EDT, Weight Dosing Start Date: 09/22/23 Status: OrderedStart: 05-26-2023 End: 39-81-1006hggm 1 capsule by mouth four times dailyKeflex 250 mg Cap 250 mg = 1 cap(s), Oral, QID, X 7 day(s), # 28 cap(s), Refills(s) 0, [id number] 174.5, cm, 05/26/23 9:14:00 EST, Height/Length Dosing, 109.1, kg, 05/26/23 9:14:00EST, Weight Dosing Start Date: 05/26/23 Stop Date: 06/02/23 Status: OrderedStart: 05-16-2023 End: 82-21-8483kqmj 1 capsule by mouth four times dailyKeflex 250 mg Cap 250 mg = 1 cap(s), Oral, QID, X 7 day(s), # 28 cap(s), Refills(s) 0, Pharmacy: [facility], 174.5, cm, 05/16/23 7:26:00 EST, Height/Length Dosing, 113.4, kg, 05/16/23 7:26:00 EST, Weight Dosing Start Date: 05/16/23 Stop Date: 05/23/23 Status: OrderedStart: 05-19-2017 End: 65-29-3140psqg 1 capsule by mouth every eight hoursCephalexin (Keflex) 500 mg capsule Discontinued 500 MG PO Q8H 21 7 0 May 19, 2017 12:00am September 09, 2023 10:39amcyclobenzaprine hydrochloride 10 mg oral tablet (7 sources)Muscle RelaxantStart: 04-04-2017 End: 57-73-1544rwkf 1 tablet by mouth three times daily as needed for muscle spasmsCyclobenzaprine 10 mg Tablet Discontinued 10 MG PO Three times daily as needed for Muscle Spasm April 03, 2017 11:00pm September 09, 2023 10:39am docusate sodium 50 mg / sennosides, [facility] 8.6 mg oral tablet (7 sources)Start: 05-19-2017 End: 66-88-8852kezc 2 tablets by mouth twice dailySennosides-Docusate Sodium (Dok Plus) 8.6-50 mg Tablet Discontinued 2 TAB PO Twice daily 40 14 May 19, 2017 12:00am September 09, 2023 10:41amesomeprazole 40 mg delayed release oral capsule (7 sources)Proton Pump InhibitorStart: 04-04-2017 End: 89-00-1245nand 1 capsule by mouth once dailyEsomeprazole Magnesium (Nexium) 40 mg Capsule,Delayed Release(Dr/Ec) Discontinued 40 MG PO Daily April 03, 2017 11:00pm May 18, 2017 12:15pm gerd72 hr fentaNYL 0.025 mg/hr transdermal system (7 sources)Opioid AgonistStart: 05-19-2017 End: 20-57-4912Pynzqqux 25 mcg/hr Patch 72 Hour Discontinued 25 MCG TRANSDERML Every 72 hours 5 14 May 19, 2017 12:00am September 09, 2023 10:39amferrous sulfate 324 mg delayed release oral tablet (7 sources)Start: 05-19-2017 End: 93-89-7932dxvy 1 tablet by mouth twice dailyFerrous Sulfate 324 mg (65 mg iron) Tablet,Delayed Release (Dr/Ec) Discontinued 324 MG PO Twice daily 30 May 19, 2017 12:00am September 09, 2023 10:40amgabapentin 100 mg oral capsule (15 sources)Anti-epileptic AgentStart: 03-15-2025 End: 83-35-2959vnbp 1 capsule by mouth once daily at bedtimeGabapentin 100 mg capsule Discontinued 100 MG PO Daily at bedtime March 14, 2025 11:00pm 2024 7:14amStart: 24-23-8047xmtu 1 capsule by mouth once daily at bedtimegabapentin 100 mg Cap 100 mg = 1 cap(s), Oral, Once a day (at bedtime), # 30 cap(s), Refills(s) 0, [id number], 175.3, cm, 05/18/24 7:58:00 EST, Height/Length Dosing, 112.1, kg, 05/18/24 7:58:00 EST, Weight Dosing Start Date: 05/18/24 Status: OrderedStart: 04-04-2017 End: 38-18-4329lzlg 1 capsule by mouth three times daily as needed for pain Gabapentin (Neurontin) 100 mg Capsule Discontinued 100 MG PO Three times daily as needed for Pain April 03, 2017 11:00pm May 13, 2017 9:09am levoFLOXacin 500 mg oral tablet (2 sources)Quinolone AntimicrobialStart: 04-08-2025 End: 51-51-8024juzg 1 tablet by mouth once dailyLevofloxacin 500 mg tablet Discontinued 500 MG PO Daily 7 7 0 April 08, 2025 12:00am April 17, 2025 10:21amStart: 12-30-2023 End: 68-84-8440uqry 1 tablet by mouth every twenty-four hoursLevaquin 500 mg Tab 500 mg = 1 tab(s), Oral, q24hr, X 10 day(s), # 10 tab(s), Refills(s) 0, Pharmacy: [facility][id number], 172, cm, 12/29/23 13:54:00 EDT, Height/Length Dosing, 109.8, kg, 12/29/23 13:54:00 EDT, Weight Dosing Start Date: 12/30/23 Stop Date: 01/09/24 Status: Orderedmagnesium oxide 400 mg oral tablet (20 sources)Start: 44-80-8303hdcxyoejm oxide 400 mg Tab 400 mg = 1 tab(s), Oral, TID, 90 EA, 0 Refill(s), TAKE 1 TABLET BY MOUTHTHREE TIMES A DAY, # 90 tab(s), Refills(s) 0, [id number] 174, cm, 11/14/24 10:26:00 EDT, Height/Length Dosing, 112.9, kg, 11/14/24 10:26:00 EDT, Weight Dosing Start Date: 11/14/24 Status: Ordered Quantity: 90.0 Unit: tab(s) Repeat number: 1Start: 04-60-0327jnxvdxrge oxide (Mag-Ox) 400 MG tablet Take 400 mg by mouth 02/20/2024 ActiveStart: 69-08-0634hatv 1 tablet by mouth three times daily magnesium oxide 400 mg Tab 400 mg, Oral, TID, dose change-last magnesium level completed 01/11/24-, #90 tab(s), Refills(s) 3, Pharmacy: [facility], 175.3, cm, 01/13/24 9:06:00 EDT, Height/Length Dosing, 110.9, kg, 01/13/24 9:06:00 EDT, Weight Dosing Start Date: 01/30/24 Status: OrderedStart: 05-62-1177mych 1 tablet by mouth twice dailymagnesium oxide 400 mg Tab 400 mg = 1 tab(s), Oral, BID, # 60 tab(s), Refills(s) 0, Pharmacy: [id number], 172, cm, 12/29/23 13:54:00 EDT, Height/Length Dosing, 109.8, kg, 12/29/23 13:54:00 EDT, Weight Dosing Start Date: 12/30/23 Status: OrderedStart: 08-18-2023 take 1 tablet by mouth once dailyMagnesium Oxide 400 mg (241.3 mg magnesium) tablet Active 400 MG PO Daily September 08, 2023 11:00pm Complies with drug therapy Start: 88-47-3961lnkb 1 tablet by mouth once dailymagnesium oxide 400 mg Tab 400 mg = 1 tab(s), Oral, Daily, # 60 tab(s), Refills(s) 0, Pharmacy: [facility]/pharm[facility] #[id number], 175, cm, 06/14/23 10:52:00 EST, Height/Length Dosing, 102.3, kg, 06/14/23 10:52:00 EST, Weight Dosing Start Date: 06/15/23 Status: Orderedmetoprolol 1 mg/mL Inj (1 source)Start: 09-01-2023 End: 77-74-6095hatspb 10 mg intravenously oncemetoprolol 1 mg/mL Inj 10 mg = 10 mL, Injection, IV Push, Once, Stop date 09/01/23 10:51:00 AM EDT, Routine, Start date 09/01/23 11:00:00 AM EDT, 09/01/23 10:36:00 EDT Start Date: 09/01/23 Stop Date: 09/01/23 Status: Completedpantoprazole 40 mg delayed release oral tablet (7 sources)Proton Pump InhibitorStart: 05-18-2017 End: 93-62-1081aiby 1 tablet by mouth once dailyPantoprazole 40 MG tablet,delayed release (DR/EC) Discontinued 40 MG PO Daily May 18, 2017 12:00am September 09, 2023 10:44ampotassium chloride 10 meq extended release oral capsule (20 sources)Start: 09-09-2023 End: 77-84-3623fhwk 1 capsule by mouth once dailyPotassium Chloride 10 mEq capsule, extended release Discontinued 10 MEQ PO Daily September 08, 2023 11:00pm March 18, 2025 7:15amStart: 28-38-8796pbvq 1 capsule by mouth once daily potassium chloride 10 mEq Cap-ER 10 mEq = 1 cap(s), Oral, Daily, # 30 cap(s), Refills(s) 0, Pharmacy: [id number], 172, cm, 08/15/23 7:04:00 EDT, Height/Length Dosing, 107.2, kg, 08/15/23 7:04:00 EDT, Weight Dosing Start Date: 08/18/23 Status: OrderedStart: 39-35-9683hciu 1 capsule by mouth once daily potassium chloride 10 mEq Cap-ER 10 mEq = 1 cap(s), Oral, Daily, # 30 cap(s), Refills(s) 0, Pharmacy: [facility]/pharm[facility] #[id number], 175, cm, 06/14/23 10:52:00 EST, Height/Length Dosing, 102.3, kg, 06/14/23 10:52:00 EST, Weight Dosing Start Date: 06/15/23 Status: OrderedStart: 05-26-2023 End: 97-21-3999ghfp 1 tablet by mouth twice dailyPotassium Chloride (Eqv-K-Tab) 20 mEq oral tablet, extended release 20 mEq = 1 tab(s), Oral, BID, X7 day(s), # 14 tab(s), Refills(s) 0, Pharmacy: [facility] #[id number], 174.5, cm, 05/26/23 9:14:00 EST,Height/Length Dosing, 109.1, kg, 05/26/23 9:14:00 EST, Weight Dosing Start Date: 05/26/23 Stop Date: 06/02/23 Status: OrderedSemaglutide (4 sources)Start: 03-15-2025 End: 66-92-5625Lnsaxrfscnl (Ozempic) 0.25 mg or 0.5 mg (2 mg/3 mL) pen injector Discontinued 0.25 MG SUBCUT every week March 14, 2025 11:00pm March 18, 2025 7:15am for 4 weeksStart: 03-15-2025 End: 98-13-3937Taakvzyjfhq (Ozempic) 0.25 mg or 0.5 mg (2 mg/3 mL) pen injector Discontinued 0.25 MG SUBCUT every week March 15, 2025 12:00am March 18, 2025 8:15am for 4 weeks Problems Problem ClassificationProblemDateDocumented DateEpisodic/ChronicAbdominal hernia (7 sources)Gastroesophageal reflux disease with hiatal hernia; Translations: [Diaphragmatic hernia without obstruction or gangrene]13-24-8937Trqqdvbv Abdominal pain (20 sources)Right flank utys16-34-1930IdowwjylUbvpgbe-zlxrdsf disorders (20 sources)Alcohol abuse; Translations: [Nondependent alcohol abuse in remission]Onset: 917174-97-7714CugrwtcGwsqhmt on above:added per 07/13/2024 query response.Calculus of urinary tract (20 sources)Kidney stone; Translations: [Calculus of kidney]Onset: 06-21-2023 EpisodicCardiac dysrhythmias (20 sources)Ujwdnjqejqx04-36-6628HuciwexxUjvkasu kidney disease (9 sources)Chronic kidney disease stage 2; Translations: [Chronic kidney disease stage 3]22-50-2152VjwwjwaZhpkvddrvt associated with dizziness or vertigo (20 sources)Wwctnydhi50-85-5639LbqzbnbeLvbvyxscrh heart failure; nonhypertensive (20 sources)Diastolic gxguksdafns89-21-8193KlqaljmSwymwxomyl and other anemia (1 source)Anemia; Translations: [Anemia, unspecified]Onset: 27-91-2180Sokgmfbb Diabetes mellitus with complications (20 sources)Type 2 [...] metabolism (20 sources)Pure hypercholesterolemia, unspecified; Translations: [Hypercholesterolemia]Onset: 818603-34-4427NizuialSfzqsobnjb disorders (20 sources)Gastroesophageal reflux disease without esophagitis; Translations: [Gastro-esophageal reflux disease without esophagitis]Onset: 12-29-2023 19-73-2994PmvlzwqKzolffbrcn disorders (4 sources)Esophageal disordersEssential hypertension (20 sources)Essential (primary) hypertension; Translations: [Hypertensive disorder]Onset: 448066-58-7257WaajlrtPvkmp and electrolyte disorders (20 sources)Ypgndhaxyig55-82-3156DsjpwuukSrjatkkkcttai symptoms and ill-defined conditions (20 sources)Blood in urine; Translations: [Increased frequency of urination] Onset: 097508-35-4568ZjgpghpmPcayb valve disorders (20 sources)Heart moezbb07-65-8828FupbvmbvPnqzdqgkmuh of prostate (20 sources)Benign prostatic hypertrophy with outflow obstruction; Translations: [Benign prostatic hyperplasia with lower urinary tract symptoms]Onset: 69-87-6835JgiwuxaNiepvnoekbzb with complications and secondary hypertension (3 sources)Hypertensive urgency ; Translations: [Hypertensive urgency]Onset: 65-97-2626YqhupblUibnmbz and fatigue (20 sources)Aeyaenn39-91-8840NwriyubbLrhu disorders (20 sources)Recurrent major depressive episodes, moderate ; Translations: [Depressive disorder]Onset: 106792-36-3646FhwvbyhCnyulei on above:added per 06/10/2023 query response.Nausea and vomiting (10 sources)Nausea and vomiting; Translations: [Nausea with vomiting, unspecified]20-24-4661KaufakjmGtuwg aftercare (6 sources)Post-discharge yaxydx-md06-21gy42-09-8800TgegwilmKcact aftercare (1 source)Long-term current use of drug therapy; Translations: [Other alf (current) drug therapy]Onset: 80-34-0388VeisuhlfUmafp connective tissue disease (2 sources)Pain in right hand; Translations: [Pain in right hand]07-18-2024 EpisodicOther diseases of bladder and urethra (4 sources)Neurogenic dysfunction of the urinary bladder; Translations: [Neuromuscular dysfunction of bladder,unspecified]Onset: 48-78-0558CbipkomNcpam diseases of bladder and urethra (14 sources)Paralysis of pmtaosw42-41-9343IrybpmrKouqt diseases of kidney and ureters (2 sources)Secondary hyperparathyroidism; Translations: [Secondary hyperparathyroidism of renal origin]96-11-3715HtaorxmJeunc diseases of kidney and ureters (1 source)Urinary tract obstruction; Translations: [Other obstructive and reflux uropathy]Onset: 12-73-5122GlnvgbatAwctq diseases of kidney and ureters (7 sources)Kidney disease; Translations: [Disorder of kidney and ureter, unspecified]20-17-7241RfhxwrlnXgujc lower respiratory disease (20 sources)Dyspnea on -81-5692YoxuinggUwamu male genital disorders (1 source)Disorder of prostate, unspecified; Translations: [DISORDER OF PROSTATE UNSPECIFIED]Onset: 44-65-3197HpblpafxVixpn male genital disorders (11 sources)Disorder of ylnsuvfl15-23-8173XmajnxxzSmzux male genital disorders (20 sources)Prostatic intraepithelial neoplasia; Translations: [Prostatic intraepithelial neoplasia]Onset: 86-27-4131ZxorfnqqQkfyw nervous system disorders (1 source)Bilateral carpal tunnel syndrome; Translations: [Carpal tunnel syndrome, bilateral upper limbs]64-93-8476NlfqqeiPbsqg nervous system disorders (1 source)Polyneuropathy; Translations: [Polyneuropathy, unspecified]05-22-2024 ChronicOther nervous system disorders (2 sources)Carpal tunnel syndrome of right wrist; Translations: [Carpal tunnel syndrome, right upper limb]49-86-8824CvgkxqqVwgvf nutritional; endocrine; and metabolic disorders (1 source)Obese class II; Translations: [Body mass index (BMI) 37.0-37.9, adult] Onset: 54-86-0478DaywlqgBrqgo nutritional; endocrine; and metabolic disorders (2 sources)Obesity; Translations: [Other obesity due to excess calories]Onset: 38-20-7814FwghrcsQyzrf nutritional; endocrine; and metabolic disorders (16 sources)Morbid rcuxwfc72-98-7580KydgyubNylibfb on above:added per 05/13/2023 query response.Other nutritional; endocrine; and metabolic disorders (20 sources)Hypomagnesemia; Translations: [Hypomagnesemia]Onset: 12-29-2023 97-82-2603ZvbidphMvvhs nutritional; endocrine; and metabolic disorders (18 sources)Body mass index 30+ - rifixik72-23-7185CzkapizYnsbe screening for suspected conditions (not mental disorders or infectious disease) (20 sources)Raised prostate specific antigen; Translations: [Elevated prostate specific antigen [PSA]]Onset: 34-39-0246MdhljtmdRvbgdobr codes; unclassified (20 sources)Jtcbx46-99-4207GazrsgfmYcrazicdm and history of mental health and substance abuse codes (10 sources)H/O: Disorder; Translations: [Personal history of nicotine dependence]Onset: 89-83-1752DqreqchqPtoiqyqfnon; intervertebral disc disorders; other back problems (7 sources)Lumbosacral spondylosis; Translations: [Spondylosis without myelopathy or radiculopathy, lumbosacral region]46-19-8691NcmoenoEcefuof on above:Problem List clean-up per request of Phys. EHR CmteSpondylosis; intervertebral disc disorders; other back problems (7 sources)Spinal stenosis of lumbar region; Translations: [Spinal stenosis, lumbar region without neurogenic claudication]96-28-0476HwfkicmbFomldyw on above:Problem List clean-up per request of Phys. EHR CmteUnclassified (20 sources)Patient encounter vyoyhb73-55-0802Xaahbwhgstzo (20 sources)Finding of sensation of hypeapz15-76-5272Whtpwvd tract infections (20 sources)Urinary tract infectious disease; Translations: [Urinary tract infection, site not specified]Onset: 46-99-4058Qmvuzbya Results Test NameValueInterpretationReference RangeFacilityLaboratory - Chemistry and Chemistry - challengeOrdered By: Clara Encarnacion on 75-23-0478Czgtaoxrx Ql (U) NegativeCleveland Clinic FoundationGlucose (U) [Mass/Vol]500 mg/dL [facility] FoundationKetones Ql (U)NegativeCleveland Clinic FoundationpH (U)6.5 [pH][facility] Hospitalpecific gravity (U) [Rel density]1.010[facility] FoundationLaboratory - Specimen informationOrdered By: Clara Encarnacion on 81-76-5839Saunctdzkh (U)cloudyCleveland Clinic FoundationColor (U)yellowCleveland Clinic Foundation Laboratory - UrinalysisOrdered By: Clara Encarnacion on 24-61-5924Svkkvdmnq esterase Test strip Ql (U)moderateCleveland Clinic FoundationNitrite Ql (U)Negative [facility] FoundationProtein Ql (U)30mg/dLCleveland Clinic FoundationNo Panel InformationOrdered By: Clara Encarnacion on 44-48-5703Wdutzpc Glucose 338C[facility] FoundationUrine Occult BloodmoderateCleveland Clinic FoundationUrine Urobilinogen0.2EU/dLCleveland Clinic FoundationUrine Cultureon 87-90-3381Uwyeimqu identified Cx Nom (U)ORGANISM: Enterobacter cloacae complex (O:ENTCLOCPLX) [place] Count >100,000 Aerobic EMERSON Charge (NMIC56) SUSCEPTIBILITY [...] RESISTANT TO ALL B-LACTAM DRUGS. PERFORMED BY: [facility] [address] [place] [address] PATHOLOGIST [employer]IEF JOCELYN NOEL M.D.[facility] Physician GroupComment on above: Performed By: #### CUU #### [facility] [address] [place] [address] USAUrine cultureOrdered By: Clara Encarnacion on 04-03-2025 Bacteria identified Cx Nom (U)Enterobacter cloacae complexAbnormalCleveland Clinic FoundationBasophils Auto (Bld) [#/Vol]Ordered By: Ivania Vale on 26-31-6711Zfpkfsfuz (Bld) [#/Vol]0.1 10 3/uL0.0-0.1FSouthwest General Health CenterBasophils/100 WBC Auto (Bld)Ordered By: Ivania Vale on 03-20-2025 Basophils/100 WBC (Bld)1.3 %0.2-2.0[facility] FoundationCholesterol in LDL Calc [Mass/Vol]Ordered By: Ivania Vale on 75-29-5569Ynelzcibdju in LDL [Mass/Vol]68.2 mg/dLCleveland Clinic FoundationComment on above:<100 mg/dl BTHKZUU076-671 mg/dl NEAR OR ABOVE OEUKZEK764-160 mg/dl BORDERLINE ERGU698-182 mg/dl HIGH>190 mg/dl VERY HIGHCholesterol in VLDL Calc [Mass/Vol]Ordered By: Ivania Vale on 25-58-5687Eannteizhpd in VLDL [Mass/Vol]20.8 mg/dLCleveland Clinic FoundationEosinophils/100 WBC Auto (Bld)Ordered By: Ivania Vale on 21-30-1099Fealtbotlsq/100 WBC (Bld)2.4 %0.9-7.0[facility] FoundationErythrocyte distribution width Auto (RBC) [Ratio]Ordered By: Ivania Vale on 78-99-7245Ybporodsaql distribution width (RBC) [Ratio]12.3 %11.0-15.0 [facility] FoundationGlobulin Calc (S) [Mass/Vol]Ordered By: IVANIA VALE on 02-34-7158Gznsiizq (S) [Mass/Vol]3.6 g/dLCleveland Clinic FoundationGlomerular filtration rate (GFR) estimation in non- AmericanOrdered By: IVANIA VALE on 27-47-3065KBX/1.73 sq M.predicted among non-blacks MDRD (S/P/Bld) [Vol rate/Area]57 mL/min/{1.73_m2}Low>=60 mL/min/1.[address]m [address] [place], [place] [address]Glucose mean value [Mass/volume] in Blood Estimated from glycated hemoglobinOrdered By: Ivania Vale on 52-38-4019Tadalif glucose Estimated from glycated hemoglobin (Bld) [Mass/Vol]171 mg/dLCleveland Clinic FoundationHematocrit Auto (Bld) [Volume fraction]Ordered By: Ivania Vale on 36-67-9508Hmzeubninp (Bld) [Volume fraction]40.1 %Low42.0-54.0[facility] FoundationHemoglobin A1c percentageOrdered By: Ivania Vale on 03-20-2025 HbA1c (Bld) [Mass fraction]7.6 %High4.5-6.2FSouthwest General Health Center Comment on above:ADA RECOMMENDED LIMIT 4.0 - 6.0ADA THERAPEUTIC TARGET < 7.0ACTION SUGGESTED> 7.0Hemoglobin [Mass/volume] in BloodOrdered By: Ivania Vale on 05-55-1150Gzdsnucwfl (Bld) [Mass/Vol]13.6 g/dLLow14.0-18.0[facility] FoundationLaboratory - Chemistry and Chemistry - challengeOrdered By: IVANIA VALE on 14-29-7547Vjtqwwz [Mass/Vol]3.8 g/dL3.4-5.0[facility] FoundationALP [Catalytic activity/Vol]80 U/V50-815JsgzlxvsnCleveland Clinic FoundationALT [Catalytic activity/Vol]27 U/X36-37GqgdijjhbCleveland Clinic FoundationAST [Catalytic activity/Vol]18 U/L89-64IlynefghmCleveland Clinic FoundationBilirubin [Mass/Vol]1.5 mg/dLHigh0.2-1.0[facility] Calcium [Mass/Vol]8.7 mg/dL8.5-10.1FSouthwest General Health CenterChloride [Moles/Vol]102 mmol/O76-543EmzpavgjfCleveland Clinic FoundationCO2 [Moles/Vol]30.4 mmol/L21.0-32.0[facility] FoundationCreatinine [Mass/Vol]1.25 mg/dL 0.70-1.30[facility] FoundationGFR/1.73 sq M.predicted MDRD (S/P/Bld) [Vol rate/Area]mL/min/{1.73_m2}>=60 mL/min/1.73m 2FSouthwest General Health CenterGlucose [Mass/Vol]213 mg/iLSles11-710OvhmiruvbC[facility] Clinic Foundation Magnesium [Mass/Vol]0.7 mg/dLCritically low1.8-2.4FSouthwest General Health CenterComment on above:RESULTS CALLED TO DARREN CASHotassium [Moles/Vol] 4.2 mmol/L3.5-5.1FSouthwest General Health CenterProtein [Mass/Vol]7.4 g/dL 6.4-8.2FLima Memorial Hospitalodium [Moles/Vol]143 mmol/D111-587 [facility] FoundationUrea nitrogen [Mass/Vol]12.0 mg/dL7.0-18.0 [facility] FoundationUrea nitrogen/Creatinine [Mass ratio]9.6 mg/mg [facility] FoundationLaboratory - Chemistry and Chemistry - challengeOrdered By: Ivania Vale on 89-38-3962Suyjpkmtiwd [Mass/Vol]134 mg/dL <=200C[facility] FoundationCholesterol in HDL [Mass/Vol]45 mg/dL40-60 [facility] FoundationComment on above:> or =60 mg/dl - LOW CARDIOVASCULAR RISK<40 mg/dl - HIGH CARDIOVASCULAR RISKTriglyceride [Mass/Vol] 104 mg/dL<=150C[facility] FoundationLaboratory - Hematology and Cell countsOrdered By: Ivania Vale on 27-62-9767Zdzjoehy granulocytes/100 WBC (Bld) 0.4 %0.0-0.5FSouthwest General Health CenterLeukocytes [#/volume] corrected for nucleated erythrocytes in Blood by Automated counOrdered By: Ivania Vale on 80-89-6375HLJ corrected for nucl RBC Auto (Bld) [#/Vol]5.4 10 3/uL4.0-11.0 [facility] FoundationLymphocytes Auto (Bld) [#/Vol]Ordered By: Ivania Vale on 45-59-2488Mqepwcrhsks (Bld) [#/Vol]1.4 10 3/uL1.2-3.8[facility] FoundationLymphocytes/100 WBC Auto (Bld)Ordered By: Ivania Vale on 55-02-8547Jkrnnpeixhi/100 WBC (Bld)25.0 %20.5-60.0[facility] Auto (RBC) [Entitic mass]Ordered By: Ivania Vale on 34-40-8656MPS (RBC) [Entitic mass]33.1 pg25.9-34.0[facility] FoundationMCHC Auto (RBC) [Mass/Vol]Ordered By: Ivania Vale on 81-35-7722UDOS (RBC) [Mass/Vol]33.9 g/dL29.9-35.2FSouthwest General Health CenterMCV Auto (RBC) [Entitic vol] Ordered By: Ivania Vale on 03-78-7079DHJ (RBC) [Entitic vol]97.6 fLHigh 80.0-94.0[facility] FoundationMonocytes Auto (Bld) [#/Vol]Ordered By: Ivania Vale on 89-10-7749Wajswfaqp (Bld) [#/Vol]0.6 10 3/uL0.3-0.8[facility] FoundationMonocytes/100 WBC Auto (Bld)Ordered By: Ivania Patelp on 62-98-8908Qofjeoanc/100 WBC (Bld)11.6 %1.7-12.0[facility] Neutrophils Auto (Bld) [#/Vol]Ordered By: Ivania Vale on 38-42-6823Tgswuecljwf (Bld) [#/Vol]3.2 10 3/uL1.4-6.5FSouthwest General Health CenterNeutrophils/100 WBC Auto (Bld)Ordered By: Ivania Vale on 79-05-6031Uqedgxemvzq/100 WBC (Bld) 59.3 %43.0-75.0[facility] FoundationNo Panel InformationOrdered By: Ivania Vale on 78-43-8798Qyjpvhsyyqv # (Auto)0.1 10 3/uL0.0-0.7FSouthwest General Health CenterImmature Granulocyte # (Auto)0.02 10 3/uL0.00-0.03 [facility] FoundationPlatelet mean volume Auto (Bld) [Entitic vol] Ordered By: Ivania Vale on 14-75-6369Qlhglgtu mean volume (Bld) [Entitic vol] 9.7 fL9.5-13.5FSouthwest General Health CenterPlatelets Auto (Bld) [#/Vol] Ordered By: Ivania Vale on 31-40-2927Xdxkppwzf (Bld) [#/Vol]212 10 3/yS024-431 [facility] FoundationRBC Auto (Bld) [#/Vol]Ordered By: Ivania Vale on 58-47-1571KJP (Bld) [#/Vol]4.11 10 6/uLLow4.70-6.10[facility] Community Hospitalerum or plasma albumin/globulin mass ratioOrdered By: IVANIA VALE on 24-48-4869Gjwjioa/Globulin [Mass ratio]1.1 {ratio}[facility] Community Hospitalerum or plasma anion gap determinationOrdered By: IVANIA VALE on 55-85-7913Ovvmq gap [Moles/Vol]14.8 mmol/LFLima Memorial Hospitalerum or plasma total cholesterol/high density lipoprotein (HDL) cholesterol mass rat Ordered By: Ivania Vale on 96-67-1338Usfhwwrmvkm.total/Cholesterol in HDL [Mass ratio]3.0 {ratio}[facility] FoundationComment on above:3.3 - 4.4 LOW RISK4.4 - 7.1 AVERAGE RISK7.1 - 11.0 MODERATE RISK>11.0 HIGH RISKAmbulatory Visit Summaryon 64-22-5860Yfurchkxih Visit SummaryAmbulatory Visit Summary ALICJA REYES :1955 [...] AM EST With: MARINO KEARNS CNP Where: [place] [id number]- Tuesday2025 9:15 AM EST With: Bryant TAO MD Where: [facility] [place] [address] [address] [place] [address]- Tuesday2025 8:00 AM EST With: Where: [facility] [address] [address]- You Need to Schedule the Following Appointments Follow Up with Bryant TAO MD, URL When: Comments: 3 mos w/ PSA F&T Where: [address] [address]- Medications What How Much When [...] BS twice daily- will bring equipment to [facility] f/ u to update brand Contact [...] with us by (more content not included)...[facility] CenterU[facility] Office/Clinic Noteon 84-34-8759Nnwjvdf Office/Clinic NoteUrology Office/Clinic Note Chief Complaint Pt [...] 16.7% --> started having PSAs checked at [facility] [place] 08/07/24 - 8.1 % 7.4% (PSAD 0.31) 09/24/24 - 2.0 & 20.0% 03/04/25 - 11.3 & 3.5% MRI of prostate 07/21/23 [facility] [place] - A focal area [...] longer [place] [facility], will be using [facility]. -Repeat PSA F&T [...] bladder trabeculations and (more content not included)... [facility] HospitalComment on above:Result Comment: Electronically Signed By: Bryant TAO MD\.br\Date and Time Signed: 03/19/25 10:05 EDT\.br\Electronically Co-Signed By: Alis Velásquez\.br\Date and Time Co-Signed: 03/19/25 10:02 EDTC Urineon [id number] identified Cx Nom (U)Microbiology PROCEDURE: Urine Culture [R1] SOURCE: U CleanCatch BODY SITE: COLLECTED DATE/TIME: 03/04/2025 11:13 EDT RECEIVED DATE/TIME: 03/04/2025 20:14 EDT START DATE/TIME: 03/04/2025 20:14 EDT FREE TEXT SOURCE: SHIRA WHATLEY, MARINO KEARNS CNP, MARINO Butler FINAL REPORTS Final Report [] Verified Date/Time: 03/06/2025 06:55 EDT <10,000 cfu/ml Mixed skin contaminants Performing Locations R1: This test was performed at: [facility], [address] [place] [address], [facility] , , CgygzfDhqxvoMercy Health Clermont HospitalComment on above:Performed By: #### [id number] #### [address] [address]Fnketevucgm 73-36-7004Vyfphzfvb [Mass/Vol]0.5 mg/dLAbnormal 1.3-2.4FOhioHealth Marion General HospitalComment on above:Result Comment: Critical Result Verified by Repeat Analysis Critical Result S_M.5 Called to and read back by: DR ANDRE at: 03/04/2025 20:42:04 by:MJPerformed By: #### [id number] #### [facility] [address] [place] [id number] Urineon 01-70-6991Nmhhaoae identified Cx Nom (U)Microbiology PROCEDURE: Urine Culture [R1] SOURCE: U CleanCatch BODY SITE: COLLECTED DATE/TIME: 01/29/2025 11:35 EDT RECEIVED DATE/TIME: 01/29/2025 16:55 EDT START DATE/TIME: 01/29/2025 16:56 EDT FREE TEXT SOURCE: MARINO KEARNS CNP, CNP, SHELLY A FINAL REPORTS Final Report [] Verified Date/Time: 01/31/2025 09:30 EDT 1,000 cfu/ml Mixed skin contaminants Performing Locations R1: This test was performed at: [facility], [address] [place] [address], [address]- , , UhpoxtMhijxsHolzer HospitalComment on above:Performed By: #### [id number] #### [facility] [address] [place] [address]Dtdclytery Visit Summaryon 48-79-1636Rwjpdfvkim Visit Summary Ambulatory Visit Summary ALICJA REYES :1955 Visit Date:01/29/2025 Ambulatory Visit Instructions Your Diagnosis Dysuria BMI 36.0-36.9,adult Former smoker Obesity (BMI 30-39.9) Your Care Team Attending Physician - MARINO KEARNS CNP Primary Care Physician - MARINO KEARNS CNP This Is Your Medications List [facility] Prescription ([facility] D[facility] Prescription) amlodipine (amLODIPine 5 mg Tab) [...] AM EDT With: Where: [facility] [address] [address]- Tuesday 8:15 AM EDT With: EMMY REYNOLDS, Bryant Vogel Where: [facility] [address] [place] [address]- Tuesday 8:40 AM EST With: MARINO KEARNS CNP Where: [address] [address]- Tuesday2025 8:00 AM EST With: Where: [address] [address]- Medications What How Much When Instructions Unchanged [...] BS twice daily- will bring equipment to [facility] f/ u to update brand Unchanged [...] signed up for this yet, please contact [employer] at [phone] to get signed up today. Language Information Language assistance services are available as needed. [facility] Medicine Office/Clinic Noteon 03-50-4156Xcowam Medicine Office/Clinic NoteBaystate Franklin Medical Center Medicine Office/Clinic Note Chief Complaint Possible UTI The patient presents with dysuria and associated nausea. HPI Staff Pt presents today due to possible UTI. Pt does have Hx of UTI & NGB. Does CIC 3x/day. Does see [facility]. Onset: Sx started Tuesday Symptoms: burning [...] He has an upcoming appointment with a manager room, expressing dissatisfaction with previous consultations. Review of [...] Medium Risk, 11/15/2012 Saima (more content not included)...Holzer HospitalComment on above:Result Comment: Electronically Signed By: [...] AM EDT With: Where: [facility] [address] [address]- Tuesday 8:15 AM EDT With: Bryant TAO MD Where: [facility] [address] [place] [address]- Tuesday 8:40 AM EST With: MARINO KEARNS CNP Where: [address] [address]- Tuesday2025 8:00 AM EST With: Where: [address] [address]- You Need to Schedule the Following Appointments Follow Up with MARINO KEARNS CNP, FAM When: Within 3 months Comments: Diabetes Where: [address] [place] [phone] Business (1) Medications What How Much When [...] (acetaminophen-hydrocodone 325 mg-5 mg (more content not included)...[facility] Medicine Office/Clinic Noteon 00-35-1797Eanqjv Medicine Office/Clinic NoteFabarnstable county hospital Medicine Office/Clinic Note Chief Complaint The [...] glucose control. Ordered: HgbA1c Lab Specimen Collect 07[address] 2. Low magnesium level (R79.0: Abnormal level of blood mineral) - Awaiting magnesium levels Ordered: Lab Specimen Collect 90819 Magnesium Level 3. BMI 37.0-37.9, adult (Z68.37: Body mass index [BMI] 37.0-37.9, adult) BMI 37.19 Morbid (severe) obesity due to excess calories (E66.01: Morbid (severe) obesity due to excess calories) - Discussed the impact of alcohol consumption on weight and overall health. Follow-up With When Contact Information MARINO KEARNS CNP, FAM Within 3 months [address] [place] [address] Business (1) Additional Instructions: Diabetes [...] Medications Aleve, 220 m (more content not included)...[facility] Comment on above:Result Comment: Electronically Signed By: MARINO KEARNS CNP\.br\Date and Time Signed: 01/08/25 08:28 AWOBckP7wry 40-09-2741PoB4z (Bld) [Mass fraction]7.7 %High<=5.9[facility] CenterComment on above: Performed By: #### [id number] #### [facility] [address] [place] [address]X Urineon 65-17-2627Vjxopobs identified Cx Nom (U)Microbiology PROCEDURE: Urine Culture [...] Locations R1: This test was performed at: [facility], [address] [place] [address], [address]- , , QalkbnSirixcMercy Health Clermont HospitalComment on above:Performed By: #### [id number] #### [facility] [address] [place] [address]Tirqxcpafd Visit Summaryon 76-63-8713Nhcfhutjmi Visit Summary Ambulatory Visit Summary ALICJA REYES :1955 Visit Date:11/14/2024 Ambulatory Visit Instructions Your Diagnosis Dizziness Microhematuria Tests Performed Urine Culture -- Results Pending -- Please visit your patient portal for your results or contact your primary care physician. Your Care Team Attending Physician - SHIRA GELATIN [employer], MARINO A Primary Care Physician - Nancy Grace MD This Is Your Medications List Misc Prescription ([facility] Prescription) acetaminophen-hydrocodone (acetaminophen-hydrocodone 325 mg-5 mg [...] AM EDT With: Nancy Grace MD Where: [facility] [address] [address]- Tuesday 8:00 AM EDT With: Where: [facility] [address] [place] [address]- Tuesday 8:15 AM EDT With: Bryant TAO MD Where: [facility] [address] [place] [address]- Tuesday2025 8:00 AM EST With: Where: [address] [address]- Medications What How Much When Why Instructions New ciprofloxacin (Cipro 500 mg Tab) 1 Tablets By Mouth Every 12 hours Dizziness Microhematuria Duration: 7 Days Pickup at [facility]/pharmacy #[id number] Unchanged acetaminophen-hydrocodone (acetaminophen-hydrocodone 325 mg-5 mg oral [...] BS twice daily- will bring equipment to [facility] f/ u to update brand Unchanged [...] a day (in the evening) Pharmacy Information [facility]/pharmacy #[id number]: [address], [place] [id number] [phone] Allergies CeleBREX (Anxiety, Unknown) Problems Ongoing - [...] Incomplete bladder emptying Ki (more content not included)...[facility] Medicine Office/Clinic Noteon 35-02-6482Kdjmre Medicine Office/Clinic NoteFami Medicine Office/Clinic Note Chief [...] # 14 tab(s), Refills(s) 0, Pharmacy: [facility]/pharmacy #[id number], 174, cm, 11/14/24 10:26:00 EDT, Height/Length Dosing, 112.9, kg, 11/14/24 10:26:00 EDT, Weight Dosing Urnls Dip Stick Auto w/o Microscopy POC [address] Microhematuria (R31.29: Other microscopic hematuria) - POC U/A shows leukocytes and blood - Urine culture pending - Start Ciprofloxacin - Provider to call with urine culture results Ordered: ciprofloxacin, 500 mg = 1 tab(s), Oral, q12hr, X 7 day(s), # 14 tab(s), Refills(s) 0, Pharmacy: [facility]/pharmacy #[id number], 174, cm, 11/14/24 10:26:00 EDT, Height/Length Dosing, 112.9, kg, 11/14/24 10:26:00 EDT, Weight Dosing Urine Culture Orders: magnesium oxide, 400 mg = 1 tab(s), Oral, TID, 90 EA, 0 Refill(s), TAKE 1 TABLET BY MOUTH THREE TIMES A DAY, # 90 tab(s), Refills(s) 0, Pharmacy: [facility]/pharmacy #[id number], 174, cm, 11/14/24 10:26:00 EDT, Height/Length [...] mg= 2 tab(s (more content not included)... Holzer HospitalComment on above:Result Comment: Electronically Signed By: MARINO KEARNS CNP\.br\Date and Time Signed: 11/14/24 11:08 EDT Ambulatory Visit Summaryon 80-08-5239Brrrbwrvcq Visit SummaryAmbulatory Visit Summary ALICJA REYES Bharathi [...] EDT With: Ruiz REYNOLDS, Nancy Thompson Where: [address] [address]- Tuesday 8:00 AM EDT With: Where: [facility] [address] [place] [address]- Tuesday 8:15 AM EDT With: Bryant TAO MD Where: [facility] [address] [address]- Tuesday2025 8:00 AM EST With: Where: [address] [phone]- You Need to Complete the Following Magnesium [...] BS twice daily- will bring equipment to [facility] f/ u to update brand Unchanged [...] disorder, recurrent, m (more content not included)...Normal [facility] CenterBMPon 98-94-1671NA8 [Moles/Vol]24 mmol/IYerjbu47-38 [facility] CenterComment on above:Performed By: #### [id number] #### [facility] [address] [place], [place] [address]Pqnmm gap [Moles/Vol]14 mmol/LNormal6-16[facility] CenterComment on above:Performed By: #### [id number] #### [facility] [address] [place], [place] [address]Rtgndkm [Mass/Vol]8.5 mg/dLLow8.9-11.1FOhioHealth Marion General HospitalComment on above:Performed By: #### [id number] #### [facility] [address], [place] [address]Ahbdxlvn [Moles/Vol]103 mmol/WBlrbes450-750CtlrraTrinity Health System Twin City Medical CenterComment on above:Performed By: #### [id number] #### [facility] [address], [place] [address]Zguvhcoeng [Mass/Vol]1.4 mg/dLHigh0.5-1.3FOhioHealth Marion General HospitalComment on above:Performed By: #### [id number] #### [facility] [address], [place] [address]Dzndozt [Mass/Vol]248 mg/oLXrny80-867XyfaymTrinity Health System Twin City Medical CenterComment on above:Performed By: #### [id number] #### [facility] [address], [place] [address]Nnfrlutqo [Moles/Vol]4.5 mmol/LNormal3.5-5.3FOhioHealth Marion General HospitalComment on above:Performed By: #### [id number] #### [facility] [address], [place] [address]Ckrdhp [Moles/Vol]136 mmol/BQjuott660-085XfranjTrinity Health System Twin City Medical CenterComment on above:Performed By: #### [id number] #### [facility] [address], [place] [address]Mfkd nitrogen [Mass/Vol]16 mg/dLNormal5-21[facility] CenterComment on above:Performed By: #### [id number] #### [facility] [address], [place] [address]Rfbq nitrogen/Creatinine [Mass ratio]11 No JjsliOkxnnv06-72 [facility] CenterComment on above:Performed By: #### [id number] #### [facility] [address], [place] [address]CCKTJWOOPMrqzfxa By: SYSTEM SYSTEM on 01-75-9508Wowmwjmpr [Mass/Vol]0.9 mg/dLInvalid Interpretation Code1.3 - 2.4 mg/dLRemisol ChemComment on above:Result Comment: Critical Result Verified by Repeat Analysis Critical Result S_M.9 Called to and read back by: DR. ANDRE at: 10/08/2024 19:50:28 by:JSAnion gap [Moles/Vol]14 mmol/LNormal6 - 16 mEq/LRemisol Chem Calcium [Mass/Vol]8.5 mg/dLLow8.9 - 11.1 mg/dLRemisol ChemChloride [Moles/Vol] 103 mmol/SLuclws991 - 111 mmol/LRemisol ChemCreatinine [Mass/Vol]1.4 mg/dLHigh 0.5 - 1.3 mg/dLRemisol ClcooKFK14 mL/min/1.73 m2Low>=59mL/min/1.73 m5Fbczgck ChemGlucose [Mass/Vol]248 mg/fQRijg85 - 199 mg/dLRemisol ChemPotassium [Moles/Vol]4.5 mmol/LNormal3.5 - 5.3 mmol/LRemisol ChemSodium [Moles/Vol]136 mmol/EYzerky898 - 145 mmol/LRemisol ChemUrea nitrogen [Mass/Vol]16 mg/dLNormal5 - 21 mg/dLRemisol ChemUrea nitrogen/Creatinine [Mass ratio]11 mg/taOlznaz15 - 20 Remisol ChemCHEMISTRYOrdered By: Ruthann Mohan on 59-90-7433CA6 [Moles/Vol] 24 mmol/QCodsig85 - 31 mmol/LFTMC Chem SCHEMISTRYOrdered By: Irma Irwin on 12-66-9966IyI8i (Bld) [Mass fraction]8.7 %High<=5.9%[facility] ChemAutoSSFamily Medicine Office/Clinic Noteon 19-73-9726Nfrrht Medicine Office/Clinic NoteBaystate Franklin Medical Center Medicine Office/Clinic Note Chief Complaint 3m follow up Concern about recurrent hypomagnesemia episodes and recent magnesium levels HPI Staff 3m follow up Started on semaglutide @ [facility] for diabetes. Pt states he did not get. Too expensive. Magnesium levels drawn @ [facility]. Results were critical low. Pt advised [...] nicotine dependence) Please con (more content not included)...NormalTr[facility] Comment on above:Result Comment: Electronically Signed By: Ruiz REYNOLDS, Nancy Thompson\.br\Date and Time Signed: 10/08/24 08:19 EIHQfdX2fxw 55-04-5705YiC4f (Bld) [Mass fraction]8.7 %High<=5.9[facility] CenterComment on above: Performed By: #### [id number] #### [facility] [address], [place] [address]Mapfkmhbagg 35-73-7434Ztzzxsrct [Mass/Vol]0.9 mg/dLAbnormal 1.3-2.4FOhioHealth Marion General HospitalComment on above:Result Comment: Critical Result Verified by Repeat Analysis Critical Result S_M.9 Called to and read back by: DR. ANDRE at: 10/08/2024 19:50:28 by:ZARAPerformed By: #### [id number] #### [facility] [address], [place] [address]fVMIjp 93-87-1122jFKH74 mL/min/1.73 m2Low>=59Tr[facility] Medical CenterComment on above:Performed By: #### [id number] #### [facility] [address] [place], [place] [address]Ibkjnstvyx Visit Summaryon 34-24-5364Xwkhuzkyqe Visit Summary Ambulatory Visit Summary ERIC ALICJA [...] AM EDT With: Nancy Grace MD Where: [address] [address]- Tuesday 8:15 AM EDT With: Nancy Grace MD Where: [address] [phone]- Tuesday2025 8:00 AM EST With: Where: [address] [address]- Medications What How Much When Why Instructions [...] 1 Tablets By Mouth Every day Unchanged [facility] Prescription ([facility] DME Prescription) 'Number 1' Glucometer and test [...] you for choosing us for your care. Holzer HospitalCHEMISTRYOrdered By: SYSTEM SYSTEM on 81-90-2558Hyts PSA [Mass/Vol]0.4 ng/mLInvalid Interpretation Code Remisol ChemComment on above:Interpretive Data: The concentration of free PSA and total PSA determined with assays from different manufacturers can vary due to differences in assay methods and specificity. Values obtained with different associate quality engineer's assays cannot be used interchangeably. The methodology used to obtain this result was chemiluminescence using [employer]'s Access Hybritech PSA reagent and Access Hybritech [...] Lazara's Access Hybritech PSA reagent.Ambulatory Visit Summaryon 82-79-4090Yupehlytvl Visit SummaryAmbulatory Visit Summary ALICJA REYES :1955 Visit Date:09/03/2024 Ambulatory Visit Instructions Your Care Team Attending Physician - RAMANDEEP PORTER PA-C Primary Care Physician - Nancy Grace MD This Is Your Medications List [facility] Prescription ([facility] D[facility] Prescription) amlodipine (amLODIPine 5 mg Tab) [...] AM EDT With: Nancy Grace MD Where: [facility] [address] [address]- Tuesday 8:15 AM EDT With: Ruiz REYNOLDS, Nancy Thompson Where: [address] [phone]- Tuesday2025 8:00 AM EST With: Where: [address] [address]- Medications What How Much When Why Instructions [...] 1 Tablets By Mouth Every day Unchanged [facility] ([facility] Prescription) 'Number 1' Glucometer and test strips testing BS twice daily- will bring equipment to [facility] f/ u to update brand Unchanged [...] you for choosing us for your care. NormalCape Fear/Harnett Healther [facility] Center And HospitalCHEMISTRYOrdered By: SYSTEM SYSTEM on 67-93-2728Odrgeplap [Mass/Vol]0.6 mg/dLInvalid Interpretation Code1.3 - 2.4 mg/dLRemisol ChemComment on above:Result Comment: Critical Result Verified by Repeat Analysis Critical Result S_M.6 Called to and read back by: DR. NANCY GRACE at: 08/22/2024 18:46:44 by:Carlos Enriqueesiumon 21-36-7226Jmtcieqms [Mass/Vol]0.6 mg/dL Abnormal1.3-2.4Fisher [facility] Center And HospitalComment on above:Result Comment: Critical Result Verified by Repeat Analysis Critical Result S_M.6 Called to and read back by: DR. NANCY GRACE at: 08/22/2024 18:46:44 by:Rangelformed By: #### [id number] #### [facility] [address], [place] [address]Clxejrlbzv Visit Summaryon 09-35-8603Zloisuqmmm Visit Summary Ambulatory Visit Summary ERICALICJA Bharathi [...] RAMANDEEP PORTER PA-C Where: [facility] [address] [place] [address]- Tuesday 8:00 AM EDT With: Nancy Grace MD Where: [address] [phone]- Tuesday 8:15 AM EDT With: Nancy Grace MD Where: [address] [address]- Tuesday2025 8:00 AM EST With: Where: [address] [place] [address]- You Need to Schedule the Following Appointments [...] BS twice daily- will bring equipment to [facility] f/ u to update brand Contact [...] 37.0-37.9, adult BPH w (more content not included)...NormalTrinity Health System Twin City Medical CenterUrology Office/Clinic Noteon 58-10-6268Wgjjqxw Office/Clinic NoteUrology Office/Clinic Note Chief Complaint 6 [...] 7.4% (PSAD 0.31) MRI of prostate 07/21/23 [facility] - A focal area [...] (R33.9: Retention of urine, unspecified) 06/04/23 - [facility] ER due to chills and dizziness after [...] lower urinary tractsymptoms) MRI of prostate 07/21/23 [facility] - Prostate volume 26 cc. Grossly distended urinary bladder with partially visualized bilateral hydroureter. TALAMANTES is suspected and fol (more content not included)...NormalTrinity Health System Twin City Medical CenterComment on above:Result Comment: Electronically Signed By: TOSHIA Reddy APRN, [place] X\.br\Date and Time Signed: 08/21/24 10:00 EDT\.br\Electronically Co-Signed By: Analilia Espino\.br\Date and Time Co-Signed: 08/21/24 09:41 EDTCHEMISTRYOrdered By: SYSTEM SYSTEM on 41-44-2638Zfkn PSA [Mass/Vol]0.6 ng/mLInvalid Interpretation CodeRemisol ChemComment on above:Interpretive Data: The concentration of free PSA and total PSA determined with assays from different manufacturers can vary due to differences in assay methods and specificity. Values obtained with different associate quality engineer's assays cannot be used interchangeably. The methodology used to obtain this result was chemiluminescence using [employer]'s Access Hybritech PSA reagent and Access Hybritech [...] used for this result was chemiluminescence using [employer]'s Access Hybritech PSA reagent.BASIC METABOLIC PANLon 28-26-2753Iqzqr gap [Moles/Vol]12 mmol/LNormal5-15ProUnited Memorial Medical CenterComment on above:Performed By: #### BMP #### [facility] ([id number]) [address], [address] [place], [place] [address]Wggmvlv [Mass/Vol]9.3 mg/dLNormal8.5-10.5PProMedica Defiance Regional HospitalComment on above:Performed By: #### BMP #### [facility] ([id number]) [address], [address] [place], [place] [address]Fmbnnlne [Moles/Vol]100 mmol/YBghwyu89-816LswEsvwupUnited Memorial Medical CenterComment on above:Performed By: #### BMP #### [facility] ([id number]) [address], [address] [place], [place] [address]YE2 [Moles/Vol]24 mmol/MPbftzv67-21SsfUnjbmeProMedica Defiance Regional Hospital Comment on above:Performed By: #### BMP #### [facility] ([id number]) [address], [address] [place], [place] [address]Hulerdsjap [Mass/Vol]1.35 mg/dLHigh0.60-1.30ProUnited Memorial Medical CenterComment on above:Result Comment: METHOD TRACEABLE TO IDMS STANDARD Performed By: #### BMP #### [facility] ([id number]) [address], [address] [place] [address]RGC/1.73 sq M.predicted among non-blacks MDRD (S/P/Bld) [Vol rate/Area]56 mL/min/{1.73_m2}Low>59ProUnited Memorial Medical CenterComment on above: Result Comment: Reported eGFR is based on the CKD-EPI 2020 equation that does not use a race coefficient.Performed By: #### BMP #### [facility] ([id number]) [address], [address] [place], [place] [address]Cvjcpgt [Mass/Vol]204 mg/xXRjue04-69DeeZbjnwrUnited Memorial Medical Center Comment on above:Performed By: #### BMP #### [facility] ([id number]) [address], [address] [place], [place] [address]Lomzdfojn [Moles/Vol]4.3 mmol/LNormal3.5-5.0ProUnited Memorial Medical CenterComment on above:Performed By: #### BMP #### [facility] ([id number]) [address], [address] [place], [place] [address]Levvvf [Moles/Vol]136 mmol/BCjiqoi071-285XbiUzyjtg Fremont HospitalComment on above:Performed By: #### BMP #### [facility] ([id number]) [address], [address] [place], [place] [address]Gmwc nitrogen [Mass/Vol]18 mg/dLNormal5-27ProUnited Memorial Medical CenterComment on above:Performed By: #### BMP #### [facility] ([id number]) [address], [address] [place], [place] [address]Csxxc metabolic 1998 panelon 54-33-1168Ytfop gap [Moles/Vol]12 mmol/L5 - 15 mmol/LNOMS HealthcareCalcium [Mass/Vol]9.3 mg/dL8.5 - 10.5 mg/dL NOMS HealthcareChloride [Moles/Vol]100 mmol/L98 - 109 mmol/LNOMS HealthcareCO2 [Moles/Vol]24 mmol/L22 - 32 mmol/LNOMS HealthcareCreatine [Mass/Vol]1.35 mg/dL High0.60 - 1.30 mg/dLNOME HealthcareComment on above:METHOD TRACEABLE TO IDMS STANDARDGFR/1.73 sq M.predicted among non-blacks MDRD (S/P/Bld) [Vol rate/Area] 56 mL/min/{1.73_m2}Low- PINFNOMS HealthcareComment on above: Reported eGFR is based on the CKD-EPI 2020 equation that does not use a race coefficient. PERFORMED AT [facility] [address],[place] [address] Glucose [Mass/Vol]204 mg/tGAnts27 - 99 mg/dLNOME HealthcareInterpretation and review of laboratory resultsAbnormalNOMS HealthcarePotassium [Moles/Vol]4.3 mmol/L3.5 - 5.0 mmol/LNOMS HealthcareSodium [Moles/Vol]136 mmol/L134 - 146 mmol/LNOMS HealthcareUrea nitrogen [Mass/Vol]18 mg/dL5 - 27 mg/dLNOME Healthcare NOMS HealthcareFami Medicine Office/Clinic Noteon 74-67-8964Wwevgw Medicine Office/Clinic NoteFami Medicine Office/Clinic Note Chief [...] Yes Primary Pain Lo (more content not included)...[facility] Comment on above:Result Comment: Electronically Signed By: Nancy Grace MD\.br\Date and Time Signed: 08/08/24 10:11 EST\.br\Electronically Co-Signed By: Radha Tao\.br\Date and Time Co-Signed: 07/09/24 09:23 ESTAmbulatory Visit Summaryon [id number] Visit SummaryAmbulatory Visit Summary ALICJA REYES :1955 [...] APRN, Estefania Santiago Where: [facility] [address] [address]- Tuesday 8:15 AM EDT With: Nancy Grace MD Where: [address] [id number]- Tuesday 8:15 AM EDT With: Nancy Grace MD Where: [address] [id number]- Tuesday2025 8:00 AM EST With: Where: [address] [id number]- Medications What How Much When Why Instructions [...] BS twice daily- will bring equipment to [facility] f/ u to update brand Unchanged [...] or discomfort t (more content not included)...Normal [facility] CenterAmbulatory Visit SummaryAmbulatory Visit Summary ERICALICJA Bharathi :1955 [...] APRN, [place] X Where: [facility] [address] [address]- Tuesday 8:15 AM EDT With: Nancy Grace MD Where: [address] [id number]- Tuesday 8:15 AM EDT With: Nancy Grace MD Where: [address] [address]- Tuesday2025 8:00 AM EST With: Where: [address] [address]- Medications What How Much When Why Instructions New semaglutide (Ozempic 2 mg/ 3 mL (0.25 mg or 0.5 mg dose) subcutaneous solution) 0.25 Milligram Subcutaneous Every week Type 2 diabetes mellitus with hypercholesterolemia BMI 37.0-37.9, adult Obesity (BMI 30-39.9) Former smoker Hypomagnesemia Pickup at [facility]/pharmacy #[id number] Unchanged amlodipine (amLODIPine 5 mg Tab) See [...] a day (in the evening) Pharmacy Information [facility]/pharmacy #[id number]: [address], [place] [id number] [phone] Allergies CeleBREX (Anxiety, Unknown) Problems Ongoing - [...] Patient Survey You ma (more content not included)...[facility] Hospital[facility]Y Ordered By: SYSTEM SYSTEM on 80-24-3484Ipjjjonei [Mass/Vol]0.5 mg/dLInvalid Interpretation Code1.3 - 2.4 mg/dLRemisol ChemComment on above:Result Comment: Critical Result Verified by Previous Result Critical Result S_M.5 Called to and read back by: NANCY GRACE at: 07/16/2024 18:21:49 by:[facility] Medicine Office/Clinic Noteon 36-46-1034Zbebvn Medicine Office/Clinic NoteBaystate [facility] Center Medicine Office/Clinic Note Chief Complaint Discuss A1C results The patient presents for a medication review and management of Type 2 diabetes mellitus. [facility] Staff Pt presents today to discuss recent [...] The patient has been managing this with mpiy-osd-wpbgwar magnesium supplements. He denies any symptoms of [...] qWeek, # 3 mL, Refills(s) 0, Pharmacy: [facility]/pharmacy #[id number], 175.3, cm, 07/16/24 8:18:00 EST, Height/Length Dosing, 114, kg, 07/16/24 8:18:00 EST, Weight Dosing Body Mass Index (BMI) documented 3008F Current tobacco non-user 1036F Depression Screening Negative 3352F Influenza immunization status assessed 1030F Lab Specimen Collect 44939 Magnesium Level Medication list documented in medical [...] qWeek, # 3 mL, Refills(s) 0, Pharmacy: [facility]/pharmacy #[id number], 175.3, cm, 07/16/24 8:18:00 EST, Height/Length Dosing, 114, kg, 07/16/24 8:18:00 EST, Weight Dosing Magnesium Level 3. Obesity (BMI 30-39.9) (E66.9: Obesity, unspecified) Encouraged dietary modifications and physical activity. Consideration for medications that could provide weight loss benefits inclusive to their primary use, such as Ozempic. Ordered: semaglutide, 0.25 mg, SubCutaneous, qWeek, # 3 mL, Refills(s) 0, Pharmacy: [facility]/pharmacy #[id number], 175.3, cm, 07/16/24 8:18:00 EST, Height/Length Dosing, 114, kg, 07/16/24 8:18:00 EST, Weight Dosing Magnesium Level 4. Former smoker (Z87.891: Personal history of nicotine dependence) Reinforced smoking cessation and its benefits on long-term health outcomes. Ordered: semaglutide, 0.25 mg, SubCutaneous, qWeek, # 3 mL, Refills(s) 0, Pharmacy: [facility]/pharmacy #[id number], 175.3, cm, 07/16/24 8:18:00 EST, Height/Length Dosing, 114, kg, 07/16/24 8:18:00 EST, Weight Dosing Magnesium Level 5. Hypomagnesemia (E83.42: Hypomagnesemia) Blood sample required to reassess serum magnesium levels. Depending on results, magnesium supplementation may be adjusted. Ordered: sema (more content not included)...NormalTrinity Health System Twin City Medical CenterComment on above:Result Comment: Electronically Signed By: Ruiz REYNOLDS, Nancy Cordoba.br\Date and Time Signed: 07/16/24 08:57 ESTMagnesiumon 36-49-2248Tydkgfkhj [Mass/Vol]0.5 mg/dLAbnormal1.3-2.4[facility] HospitalComment on above:Result Comment: Critical Result Verified by Previous Result Critical Result S_M.5 Called to and read back by: NANCY GRACE at: 07/16/2024 18:21:49 by:KENAPerformed By: #### [id number] #### [facility] [address], [place] [address]Fee-Gvfmz Planningon 86-18-9259Axu-Visit PlanningPre-Visit Planning From: Valarie Solis To: Ruiz REYNOLDS, Nancy Thompson; Sent: 07/06/2024 11:24:03 EST Subject: Pre-Visit Planning Due Date/Time: 07/06/2024 11:24:00 EST Caller Name: ALICJA REYES; Caller Number: Sana , Nicole Wi Dr. Grace. During a pre-visit planning chart review, I noted the following documentation in the medical record: Current Problem List: Alcohol abuse uncomplicated, Hypokalemia, Hypomagnesemia, Major depressive disorder recurrent moderate, HTN, and Tachycardia. Current Medication List: amlodipine, lisinopril, magnesium oxide, metoprolol, and potassium chloride. 07/25/2023 MWV: AUDIT Score =5. 12/29/2023 [facility] IP Nephrology Consult [...] feel free to contact me at extension [phone]. Thank you! Valarie Solis LPN Clinical Roving [employer] [address] [address] Extension: [phone] [email or web address] From: Nancy Grace MD To: Valarie Solis; [...] I discussed this with him at last visit.[facility] HospitalAmbulatory Visit Summaryon 76-79-3026Zkyljvxlxm Visit SummaryAmbulatory Visit Summary ALICJA REYES :1955 [...] APRN, [place] X Where: [facility] [address] [place] [address]- Tuesday 8:15 AM EDT With: Nancy Grace MD Where: [address] [address]- Tuesday 8:15 AM EDT With: Nancy Grace MD Where: [place] [address] [place] [address]- Medications What How Much When Why Instructions [...] BS twice daily- will bring equipment to [facility] f/ u to update brand Unchanged [...] you for choosing us for your care. NormalTrinity Health System Twin City Medical CenterCBC w/ Auto Diffon 07-09-2024 Basophils/100 WBC (Bld)0.7 %Normal0.0-2.0[facility] Medical CenterComment on above:Performed By: #### [id number] #### [facility] [address] [place] [address]Dlvsnssmw/Leukocytes Auto (Bld) [Pure # fraction]0.0 E9/LNormal 0.0-0.2FOhioHealth Marion General HospitalComment on above:Performed By: #### [id number] #### [facility] [address] [place] [address]Nsjfnrmlbeo (Bld) [#/Vol]0.2 E9/LNormal0.0-0.5FOhioHealth Marion General HospitalComment on above:Performed By: #### [id number] #### [facility] [address] [place] [address]Tnhylymwcds/100 WBC (Bld)3.3 %Normal0.0-8.0[facility] Medical CenterComment on above:Performed By: #### [id number] #### [facility] [address] [place] [address]Gzdhzareggz distribution width (RBC) [Ratio]12.9 %Normal 10.9-14.2FOhioHealth Marion General HospitalComment on above:Performed By: #### [id number] #### [facility] [address] [place] [address]Jtitcfnuuo (Bld) [Volume fraction]39.3 %Hytviz67.7-49.0[facility] Medical CenterComment on above:Performed By: #### [id number] #### [facility] [address] [place] [address]Ogvmgyicgc (Bld) [Mass/Vol]13.3 g/dLLow13.5-17.5FOhioHealth Marion General HospitalComment on above:Performed By: #### [id number] #### [facility] [address] [place] [address]Qihjeqtgdoa (Bld) [#/Vol]1.4 E9/LNormal1.0-4.0[facility] Medical CenterComment on above:Performed By: #### [id number] #### [facility] [address], [place] [address]Vapsjzebodf/100 WBC (Bld)21.3 %Metwlx07.0-50.0[facility] Medical CenterComment on above:Performed By: #### [id number] #### [facility] [address] [place] [address]JSN (RBC) [Entitic mass]33.6 qdBcghbl89.0-34.0[facility] Medical CenterComment on above:Performed By: #### [id number] #### [facility] [address] [place] [address]JUVO (RBC) [Mass/Vol]33.9 g/fSSdsrhy65.4-36.0[facility] Medical CenterComment on above:Performed By: #### [id number] #### [facility] [address] [place] [address]GGP (RBC) [Entitic vol]99.1 gXNxnvff10.0-100.0[facility] Medical CenterComment on above:Performed By: #### [id number] #### [facility] [address] [place] [address]Gayliuanm (Bld) [#/Vol]0.7 E9/LNormal0.2-1.0[facility] Medical CenterComment on above:Performed By: #### [id number] #### [facility] [address] [place] [address]Ywupgitsgab (Bld) [#/Vol]4.1 E9/LNormal2.0-7.5FOhioHealth Marion General HospitalComment on above:Performed By: #### [id number] #### [facility] [address], [place] [address]Wlitlhdkeew/100 WBC (Bld)63.7 %Suzxju77.0-75.0[facility] Medical CenterComment on above:Performed By: #### [id number] #### [facility] [address], [place] [address]Uiizirji mean volume (Bld) [Entitic vol]8.0 fLNormal6.4-10.8 [facility] Medical CenterComment on above:Performed By: #### [id number] #### [facility] [address] [place] [address]Kfcaomafz (Bld) [#/Vol]249.0 E9/MYuqsma869.0-500.0[facility] Medical CenterComment on above:Performed By: #### [id number] #### [facility] [address] [place] [address]MOO (Bld) [#/Vol]4.0 E12/LLow4.3-5.9[facility] Comment on above:Performed By: #### [id number] #### [facility] [address] [place] [address]SYL corrected for nucl RBC Auto (Bld) [#/Vol]6.4 E9/LNormal 4.0-11.0[facility] Medical CenterComment on above:Performed By: #### [id number] #### [facility] [address] [place] [address]IQJGBGUAFBjpgrzq By: SYSTEM SYSTEM on 17-69-3705Iprpcwx [Mass/Vol]4.3 g/dLNormal3.3 - 5.0 gm/dLRemisol ChemAlbumin/Globulin [Mass ratio] 1.7 {ratio}Normal1.1 - 2.2Remisol ChemALP [Catalytic activity/Vol]75 [iU]/d Nvzbms12 - 98 Int._Unit/LRemisol ChemALT No additional P-5'-P [Catalytic activity/Vol]16 [iU]/dNormal6 - 46 Int._Unit/LRemisol ChemAnion gap [Moles/Vol] 14 mmol/LNormal6 - 16 mEq/LRemisol ChemAST [Catalytic activity/Vol]17 [iU]/d Normal5 - 43 Int._Unit/LRemisol ChemBilirubin [Mass/Vol]0.9 mg/dLNormal0.0 - 1.1 mg/dLRemisol ChemCalcium [Mass/Vol]8.0 mg/dLLow8.9 - 11.1 mg/dLRemisol Chem Chloride [Moles/Vol]102 mmol/XHaquze067 - 111 mmol/LRemisol ChemCholesterol [Mass/Vol]112 mg/wYMmb345 - 200 mg/dLRemisol ChemCholesterol in HDL [Mass/Vol]41 mg/dLInvalid Interpretation CodeRemisol ChemComment on above:Result Comment: '>= 60 LOW RISK' '<= 40 HIGH RISK'Cholesterol in LDL [Mass/Vol]59 mg/dLNormal<=129mg/dLRemisol ChemCholesterol in VLDL [Mass/Vol]20 mg/dLNormal7 - 40 mg/dLRemisol ChemCO2 [Moles/Vol]27 mmol/JOuknaj57 - 31 mmol/LRemisol ChemCreatinine [Mass/Vol]1.3 mg/dLNormal0.5 - 1.3 mg/dLRemisol BgyhbBOF71 mL/min/1.73 t6Sdmmot>=59mL/min/1.73 v1Ipdjhkw ChemGlobulin (S) [Mass/Vol]2.6 g/dLNormal1.4 - 4.0 gm/dLRemisol Chem Glucose [Mass/Vol]291 mg/zDUpkb64 - 199 mg/dLRemisol ChemPotassium [Moles/Vol] 3.7 mmol/LNormal3.5 - 5.3 mmol/LRemisol ChemProtein [Mass/Vol]6.9 g/dLNormal6.0 - 7.8 gm/dLRemisol ChemSodium [Moles/Vol]139 mmol/SAahibx322 - 145 mmol/LRemisol ChemTriglyceride [Mass/Vol]100 mg/dLNormal<=149mg/dLRemisol ChemUrea nitrogen [Mass/Vol]12 mg/dLNormal5 - 21 mg/dLRemisol ChemUrea nitrogen/Creatinine [Mass ratio]9 mg/mgLow10 - 20Remisol ChemAlbumin DL <= 20 mg/L (U) [Mass/Vol]10.5 mg/dLHigh0.0 - 1.9 mg/dLRemisol ChemCHEMISTRYOrdered By: Isidro Leonard on 73-67-1986MtG3h (Bld) [Mass fraction]8.0 %High<=5.9%[facility] ChemAutoSSCMPon 27-08-4154Tncrttu [Mass/Vol]4.3 g/dLNormal3.3-5.0[facility] Comment on above:Performed By: #### [id number] #### [facility] [address], [place] [address]Nhrssou/Globulin (S) [Mass conc ratio]1.0Lfwowf9.1-2.2FOhioHealth Marion General HospitalComment on above:Performed By: #### [id number] #### [facility] [address], [place] [address]OYJ [Catalytic activity/Vol]75 Int._Unit/PZgqdei71-78AlkhyvTrinity Health System Twin City Medical CenterComment on above:Performed By: #### [id number] #### [facility] [address], [place] [address]QDV No additional P-5'-P [Catalytic activity/Vol]16 Int._Unit/L Normal6-46[facility] CenterComment on above:Performed By: #### [id number] #### [facility] [address], [place] [address]Rfwyy gap [Moles/Vol]14 mmol/LNormal6-16[facility] CenterComment on above:Performed By: #### [id number] #### [facility] [address], [place] [address]SUY [Catalytic activity/Vol]17 Int._Unit/LNormal5-43[facility] CenterComment on above:Performed By: #### [id number] #### [facility] [address], [place] [address]Gcbbnorhl [Mass/Vol]0.9 mg/dLNormal0.0-1.1[facility]urel Medical CenterComment on above:Performed By: #### [id number] #### [facility] [address], [place] [address]Bjfcvgj [Mass/Vol]8.0 mg/dLLow8.9-11.1FOhioHealth Marion General HospitalComment on above:Performed By: #### [id number] #### [facility] [address], [place] [address]Iwscesjv [Moles/Vol]102 mmol/HYdqvej805-125TacgmzTrinity Health System Twin City Medical CenterComment on above:Performed By: #### [id number] #### [facility] [address], [place] [address]TK9 [Moles/Vol]27 mmol/MBqlmbi34-97SszeskTrinity Health System [facility] City Medical Center Comment on above:Performed By: #### [id number] #### [facility] [address], [place] [address]Xpyfjfkggc [Mass/Vol]1.3 mg/dLNormal0.5-1.3FOhioHealth Marion General HospitalComment on above:Performed By: #### [id number] #### [facility] [address], [place] [address]Nsmgmvgq (S) [Mass/Vol]2.6 g/dLNormal1.4-4.0[facility] CenterComment on above:Performed By: #### [id number] #### [facility] [address], [place] [address]Cgvrobr [Mass/Vol]291 mg/oCTott38-152AsniyqTrinity Health System Twin City Medical CenterComment on above:Performed By: #### [id number] #### [facility] [address], [place] [address]Fjblfliow [Moles/Vol]3.7 mmol/LNormal3.5-5.3FOhioHealth Marion General HospitalComment on above:Performed By: #### [id number] #### [facility] [address], [place] [address]Spqeliq [Mass/Vol]6.9 g/dLNormal6.0-7.8[facility] Medical CenterComment on above:Performed By: #### [id number] #### [facility] [address], [place] [address]Dwgfpg [Moles/Vol]139 mmol/CAtelof442-623HltpzsTrinity Health System Twin City Medical CenterComment on above:Performed By: #### [id number] #### [facility] [address], [place] [address]Uaqz nitrogen [Mass/Vol]12 mg/dLNormal5-21[facility] CenterComment on above:Performed By: #### [id number] #### [facility] [address], [place] [address]Xutn nitrogen/Creatinine [Mass ratio]9 No GdiigAmd33-08AazxehTrinity Health System Twin City Medical CenterComment on above:Performed By: #### [id number] #### [facility] [address], [place] [address]Xlzuqg Medicine Office/Clinic Noteon 17-39-1541Puaifz Medicine Office/Clinic NoteBaystate Franklin Medical Center Medicine Office/Clinic Note Chief Complaint Med Refills Worsening depressive symptoms following a recent bereavement. [facility] Staff Pt presents today for med refills [...] [facility]. 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 He also mentions self-catherization due to a [...] Urine Microalbumin/Creatinine Ratio 5 (more content not included)...[facility] HospitalComment on above:Result Comment: Electronically Signed By: Ruiz REYNOLDS, Nancy Thompson\.br\Date and Time Signed: 07/09/24 08:07 ESTHEMATOLOGYOrdered By: SYSTEM SYSTEM on 07-09-2024 Basophils/100 WBC (Bld)0.7 %Normal0.0 - 2.0 %Remisol HemeBasophils/Leukocytes Auto (Bld) [Pure # fraction]0.0 E9/LNormal0.0 - 0.2 E9/LRemisol HemeEosinophils (Bld) [#/Vol]0.2 E9/LNormal0.0 - 0.5 E9/LRemisol HemeEosinophils/100 WBC (Bld) 3.3 %Normal0.0 - 8.0 %Remisol HemeErythrocyte distribution width (RBC) [Ratio] 12.9 %Ueseui57.9 - 14.2 %Remisol HemeHematocrit (Bld) [Volume fraction]39.3 % Vtggkm48.7 - 49.0 %Remisol HemeHemoglobin (Bld) [Mass/Vol]13.3 g/dLLow13.5 - 17.5 gm/dLRemisol HemeLymphocytes (Bld) [#/Vol]1.4 E9/LNormal1.0 - 4.0 E9/L Remisol HemeLymphocytes/100 WBC (Bld)21.3 %Aoxvgq64.0 - 50.0 %Remisol HemeMCH (RBC) [Entitic mass]33.6 xzXbgoob20.0 - 34.0 pgRemisol HemeMCHC (RBC) [Mass/Vol] 33.9 g/wKUqwhvn23.4 - 36.0 gm/dLRemisol HemeMCV (RBC) [Entitic vol]99.1 fLNormal 80.0 - 100.0 fLRemisol HemeMonocytes (Bld) [#/Vol]0.7 E9/LNormal0.2 - 1.0 E9/L Remisol HemeMonocytes/100 WBC (Bld)11.0 %Normal4.0 - 14.0 %Remisol Heme Neutrophils (Bld) [#/Vol]4.1 E9/LNormal2.0 - 7.5 E9/LRemisol HemeNeutrophils/100 WBC (Bld)63.7 %Yyvdld73.0 - 75.0 %Remisol HemePlatelet mean volume (Bld) [Entitic vol]8.0 fLNormal6.4 - 10.8 fLRemisol HemePlatelets (Bld) [#/Vol]249.0 E9/KWebmrg153.0 - 500.0 E9/LRemisol HemeRBC (Bld) [#/Vol]4.0 E12/LLow4.3 - 5.9 E12/LRemisol HemeWBC corrected for nucl RBC Auto (Bld) [#/Vol]6.4 E9/LNormal4.0 - 11.0 E9/LRemisol IhqdLtsI6njf 05-61-7800VqP6o (Bld) [Mass fraction]8.0 %High <=5.9Tr[facility] Medical CenterComment on above:Performed By: #### [id number] #### [facility] [address] [place] [address]Kcpqe Panelon 58-10-4200Ldguntxelei [Mass/Vol]112 mg/dLLow 120-200[facility] Medical CenterComment on above:Performed By: #### [id number] #### [facility] [address], [place] [address]Flvoagtqarw in HDL [Mass/Vol]41 mg/dLInvalid Interpretation CodeTrinity Health System Twin City Medical CenterComment on above:Result Comment: '>= 60 LOW RISK' '<= 40 HIGH RISK'Performed By: #### [id number] #### [facility] [address], [place] [address]Vkzgozaqneh in LDL [Mass/Vol]59 mg/dLNormal<=129[facility] CenterComment on above:Performed By: #### [id number] #### [facility] [address], [place] [address]Lgnewcvyyso in VLDL [Mass/Vol]20 mg/dLNormal7-40[facility] Medical CenterComment on above:Performed By: #### [id number] #### [facility] [address], [place] [address]Vougzxqfrsmv [Mass/Vol]100 mg/dLNormal<=149Tr[facility] Medical CenterComment on above:Performed By: #### [id number] #### [facility] [address], [place] [address]Ctq-Egmlq Planningon 90-60-8379Dpu-Visit PlanningPre-Visit Planning From: Valarie Solis To: Nancy Grace MD; Sent: 07/06/2024 11:32:39 EST Subject: Pre-Visit Planning Due Date/Time: 07/06/2024 11:32:00 EST Caller Name: ALICJA REYES; Caller Number: , M Wi Dr. Grace. During a pre-visit planning chart [...] feel free to contact me at extension [phone]. Thank you! Valarie Solis LPN Clinical [employer]oving [employer] [place] [address] Extension: [phone] [email or web address] From: Nancy rGace MD To: Valarie Solis; Sent: 07/09/2024 09:09:48 EST Subject: RE: Pre-Visit Planning Caller Name: ALICJA REYES; Caller Number: H , M -Type 2 diabetes mellitus with peripheral neuropathy, Yes he has it and we discussed it today at his visit.[facility]zer HospitalPre-Visit PlanningPre-Visit Planning From: Valarie Solis To: Nancy Grace MD; Sent: 07/06/2024 11:03:26 EST Subject: Pre-Visit Planning Due Date/Time: 07/06/2024 11:03:00 EST Caller Name: ALICJA REYES; Caller Number: H , M Wi Dr. Grace. During a pre-visit planning chart [...] you! Valarie Solis LPN Clinical Documentation Improvement SpecialistPaul Ville [address] TEAMS or [email or web address] From: Ruiz REYNOLDS, Nancy Thompson To: Valarie Solis; Sent: 07/09/2024 07:49:46 EST Subject: RE: Pre-Visit Planning Caller Name: ERIC ALICJA Bharathi; Caller Number: , Added Morbid Obesity.NormalTrinity Health System Twin City Medical CenterU Microalbon 07-09-2024 Albumin DL <= 20 mg/L (U) [Mass/Vol]10.5 mg/dLHigh0.0-1.9[facility] Medical CenterComment on above:Performed By: #### [id number] #### [facility] [address] [place] [address]rWQCbj 45-28-0470kYJI97 mL/min/1.73 j3Burqey>=59Tr[facility] Medical CenterComment on above:Performed By: #### [id number] #### [facility] [address] [place], [place] [address]Hwqrjhuw Letteron 17-61-6024Vfxbflel LetterProvider Letter July 02, 2024 AL[address]JA REYES [address] [place] [phone] : 1955 Dear Alicja , We have [...] Sincerely, [facility] [address] [place] [address] HjpjosBxwxitHolzer HospitalEMG 2 Extremitieson 91-36-0085XLJK HealthcareA generalized process such as a polyneuropathy which is axonal loss in type and moderate to severe in degree electrically Carpal tunnel syndrome bilaterally, moderate right and mild left, may be overestimated given polyneuropathy Cervical radiculopathy can not be excludedFormerly [facility] SouthN 11- 12 Nerveson 42-48-0320JNXC HealthcareA generalized process such as a polyneuropathy which is axonal loss in type and moderate to severe in degree electrically Carpal tunnel syndrome bilaterally, moderate right and mild left, may be overestimated given polyneuropathy Cervical radiculopathy can not be excludedFormerly [facility] Ambulatory Visit Summaryon 71-61-7240Ibdhlyqriq Visit SummaryAmbulatory Visit Summary ALICJA REYES :1955 [...] Appointments Tuesday 8:00 AM EST With: Where: [facility] [address] [address] Tuesday 8:15 AM EST With: EMMY REYNOLDS, Bryant Vogel Where: [facility] [address] [place] [address]- Medications What How Much When Instructions Unchanged [...] 1 Tablets By Mouth Every day Unchanged [facility] Prescription ([facility] Prescription) 'Number 1' Glucometer and test strips testing BS twice daily- will bring equipment to [facility] f/ u to update brand Unchanged [...] you for choosing us for your care. [facility] Medicine Office/Clinic Noteon 26-00-5067Wdbzso Medicine Office/Clinic NoteBaystate Franklin Medical Center Medicine Office/Clinic Note HPI Staff Alicja is [...] # 30 cap(s), Refills(s) 0, [id number], 175.3, cm, 05/18/24 7:58:00 EST, Height/Length Dosing, 112.1, kg, 05/18/24 7:58:00 EST, Weight Dosing EMG Right Lower Extremity (RLE) [facility] External Ambulatory Referral [...] # 90 cap(s), Refills(s) 0, [id number],175.3, cm, 05/18/24 7:58:00 EST, Height/Length Dosing, [...] Daily, # 90 cap(s), Refills(s) 0, [facility]acy[id number],175.3, cm, 05/18/24 7:58:00 EST, Height/Length Dosing, 112.1, kg, 05/18/24 7:58:00 EST, Weight Dosing Paresthesia of skin (R20.2: Paresthesia of skin) Discussed CCM program with patient and he declined. Total time spent preparing the chart, conducting of the encounter with the patient and family and time spent documenting, reviewing, and ordering tests was 30 minutes. Follow-up No qualifying data available Patient Education Paresthesia, Losv-qd-Mdyo Problem List/Past Medical History Ongoing Alcohol abuse [...] 400 mg, Oral, (more content not included)...Normal [facility] CenterComment on above:Result Comment: Electronically Signed By: MARINO KEARNS CNP\.oliver\Date and Time Signed: 05/18/24 08:48 EST Magnesiumon 53-26-3230Weuliwboq [Mass/Vol]0.5 mg/dLAbnormal1.3-2.4Fisher [facility] HospitalComment on above:Result Comment: Critical Result S_M.5 Called to and read back by: NOBLE OLIVAS at: 02/28/2024 15:00:56 by:[id number] Critical Result Verified by Repeat AnalysisPerformed By: #### [id number] ####[facility] [address] [place], [place] [address]RQMINNETG Ordered By: SYSTEM SYSTEM on 67-81-5849Sgadstb [Mass/Vol]4.1 g/dLNormal3.3 - 5.0 gm/dLRemisol ChemAnion gap [Moles/Vol]15 mmol/LNormal6 - 16 mEq/LRemisol Chem Calcium [Mass/Vol]8.4 mg/dLLow8.9 - 11.1 mg/dLRemisol ChemChloride [Moles/Vol] 101 mmol/MOipnut710 - 111 mmol/LRemisol ChemCO2 [Moles/Vol]26 mmol/YLeafew81 - 31 mmol/LRemisol ChemCreatinine [Mass/Vol]1.3 mg/dLNormal0.5 - 1.3 mg/dLRemisol PtqhmQWK71 mL/min/1.73 e1Fxhoua>=59mL/min/1.73 y0Nlvndtp ChemGlucose [Mass/Vol] 274 mg/eFAyop45 - 199 mg/dLRemisol ChemPhosphate [Mass/Vol]2.4 mg/dLNormal1.9 - 4.6 mg/dLRemisol ChemPotassium [Moles/Vol]4.1 mmol/LNormal3.5 - 5.3 mmol/L Remisol ChemSodium [Moles/Vol]138 mmol/WOsvwaz711 - 145 mmol/LRemisol ChemUrea nitrogen [Mass/Vol]14 mg/dLNormal5 - 21 mg/dLRemisol ChemUrea nitrogen/Creatinine [Mass ratio]11 mg/wyQbvbpb45 - 20Remisol ChemRenal Panelon 12-29-0600Pdfdusz [Mass/Vol]4.1 g/dLNormal3.3-5.0[facility] Comment on above:Performed By: #### [id number] #### [facility] Laboratory [address] [place], [place] [address]Irdsd gap [Moles/Vol]15 mmol/LNormal6-16[facility] CenterComment on above:Performed By: #### [id number] #### [facility] Laboratory [address] [place], [place] [address]Iajzumc [Mass/Vol]8.4 mg/dLLow8.9-11.1FOhioHealth Marion General HospitalComment on above:Performed By: #### [id number] #### [facility] Laboratory [address] [place], [place] [address]Uspxhuzm [Moles/Vol]101 mmol/NHctxak210-891VhjmskTrinity Health System Twin City Medical CenterComment on above:Performed By: #### [id number] #### [facility] Laboratory [address] [place], [place] [address]AY5 [Moles/Vol]26 mmol/MDcdkeo34-42EzdskmTrinity [facility] Comment on above:Performed By: #### [id number] #### [facility] Laboratory [address] [place], [place] [address]Cngakmlyih [Mass/Vol]1.3 mg/dLNormal0.5-1.3FOhioHealth Marion General HospitalComment on above:Performed By: #### [id number] #### [facility] Laboratory [address] [place], [place] [address]Oggdfba [Mass/Vol]274 mg/rGUqwu77-647TwixjwTrinity Health System Twin City Medical CenterComment on above:Performed By: #### [id number] #### [facility] Laboratory [address] [place], [place] [address]Eujwrebol [Mass/Vol]2.4 mg/dLNormal1.9-4.6FOhioHealth Marion General HospitalComment on above:Performed By: #### [id number] #### [facility] [address] [place], [place] [address]Uesyddmap [Moles/Vol]4.1 mmol/LNormal3.5-5.3FOhioHealth Marion General HospitalComment on above:Performed By: #### [id number] #### [facility] Laboratory [address] [place], [place] [address]Sykhsy [Moles/Vol]138 mmol/VPtadem842-855HhcfmzTrinity Health System Twin City Medical CenterComment on above:Performed By: #### [id number] #### [facility] Laboratory [address] [place], [place] [address]Huea nitrogen [Mass/Vol]14 mg/dLNormal5-21[facility] CenterComment on above:Performed By: #### [id number] #### [facility] Laboratory [address] [place], [place] [address]Qxvj nitrogen/Creatinine [Mass ratio]11 No GatqdPifjch21-05 [facility] CenterComment on above:Performed By: #### [id number] #### [facility] Laboratory [address] [place], [place] [address]yJDItr 98-53-6480cOZA28 mL/min/1.73 q2Cszccf>=59[facility] CenterComment on above:Order Comment: Order added by Discern Expert. Performed By: #### [id number] #### [facility] Laboratory [address] [place], [place] [address]WGGNMPBZUCbsohzt By: SYSTEM SYSTEM on 31-07-0654Hveygbiwq [Mass/Vol]0.5 mg/dLInvalid Interpretation Code1.3 - 2.4 mg/dLOKLAHOMA [facility]ART [facility] Chem SComment on above:Result Comment: Critical Result Verified by Repeat Analysis called to Marcin Grace by BHAVNA at 01/30/2024 19:19:23 EDT Results Verified By Repeat AnalysisMagnesiumon 37-49-6180Rytjusvhy [Mass/Vol]0.5 mg/dLAbnormal1.3-2.4FOhioHealth Marion General HospitalComment on above:Result Comment: Critical Result Verified by Repeat Analysis called to Marcin Grace by [id number] at 01/30/2024 19:19:23 EDT Results Verified By Repeat AnalysisPerformed By: #### [id number] #### [facility] Laboratory [address] [place], [place] [address]Grzbyfkzd [Mass/Vol]0.5 mg/dLAbnormal1.3-2.4Fisher [facility] HospitalComment on above:Result Comment: Critical Result Verified by Repeat AnalysisPerformed By: #### [id number] #### [facility] Laboratory [address] [place] [address]QemkhxymkwLutheran Hospital 78-33-9701CiorzkojyfRegional Hospital of Scranton Case Information Case Priority: None Programs: -- Referral Source: Personal Financial Counselor Referral Reason: Care coordination Case Type: Transition [...] 1 Outcome: Left message-voicemail Contact Type: Complex healthcare advisory services managermanager market intelligence Name: Alicja Castellon Notes: TCM#2- message left for return call. Created By: Alicja Castellon Date: January 03, 2024 Method: Phone call Type: Outbound Duration (min): 12 Outcome: Case discussion Contact Type: registration coordinator Contact Name: Alicja Castellon Notes: TCM#1- see tcm note. Created By: Alicja Castellon Date: January 02, 2024 Method: Phone call Type: Outbound Duration (min): 1 Outcome: Left message-voicemail Contact Type: registration coordinator Contact Name: Alicja Castellon Notes: TCM#1- left vm for return call. Created By: Alicja Castellon [facility] CenterAmbulatory Visit Summaryon 45-65-6856Tgnvwtmgkc Visit SummaryAmbulatory Visit Summary ALICJA REYES :1955 [...] Appointments Tuesday 8:00 AM EST With: Where: [facility] [address] [address]- Tuesday 8:15 AM EST With: EMMY REYNOLDS, Bryant Vogel Where: [facility] [address] [place] [address]- Medications What How Much When Instructions Unchanged [...] By Mouth Every day Unchanged Misc Prescription ([facility] D[facility] Prescription) 'Number 1' Glucometer and test [...] you for choosing us for your care. [facility]/Clinic Noteon 41-43-8881Syjtt and Vascular Office/Clinic NoteHeart and Vascular Office/Clinic [...] Vitamin Tab, See Instructions (more content not included)...[facility] HospitalComment on above:Result Comment: Electronically Signed By: Buster REYNOLDS, Javier Garvin\.oliver\Date and Time Signed: 01/13/24 09:18 EDTCHEMISTRYOrdered By: SYSTEM SYSTEM on 02-99-8425Olvs PSA [Mass/Vol]0.3 ng/mLInvalid Interpretation CodeRemisol ChemComment on above: Interpretive Data: The concentration of free PSA and total PSA determined with assays from different manufacturers can vary due to differences in assay methods and specificity. Values obtained with different associate quality engineer's assays cannot be used interchangeably. The methodology used to obtain this result was chemiluminescence using [employer]'s Access Hybritech PSA reagent and Access Hybritech [...] for this result was chemiluminescence using [employer]'s Access Hybritech PSA reagent.Magnesium on 73-84-2934Xyzlbgpgl [Mass/Vol]0.9 mg/dLAbnormal1.3-2.4Ftc [facility] HospitalComment on above:Result Comment: Critical Result Verified by Repeat Analysis Critical Result S_M.9 Called to and read back by: DR KATZ at: 01/11/2024 19:10:59 by:GALOPerformed By: #### [id number] #### [facility] Laboratory [address] [place], [place] [address]Prcwlgyncl Visit Summaryon 68-75-7392Ooaognnjcg Visit Summary Ambulatory Visit Summary ALICJA REYES [...] Appointments Tuesday 8:00 AM EDT With: Where: [address] [address]- Tuesday 9:00 AM EDT With: Buster REYNOLDS, Jaiver Garvin Where: [facility] Tuesday 8:00 AM EST With: Where: [facility] [address] [address]- Tuesday 8:15 AM EST With: Bryant TAO MD Where: [facility] [address] [place] [address]- You Need to Schedule the Following Appointments Follow Up with EMMY REYNOLDS, Bryant Vogel, URL When: Comments: 6 mos Where: [address] [address]- Medications What How Much When Instructions Unchanged [...] BS twice daily- will bring equipment to [facility] f/ u to update brand Unchanged [...] you for choosing us for your care. [facility] HospitalU[facility] Office/Clinic Noteon 86-20-1061Lzhadcc Office/Clinic NoteUrology Office/Clinic Note Chief Complaint follow [...] (R33.9: Retention of urine, unspecified) 06/04/23 - [facility] ER due to chills and dizziness after [...] lower urinary tractsymptoms) MRI of prostate 07/21/23 [facility] - Prostate volume 26 [...] 04/04/23 - 6.1 MRI of prostate 07/21/23 [facility] - A focal area [...] to 1.2 L p (more content not included)...[facility] HospitalComment on above:Result Comment: Electronically Signed By: EMMY REYNOLDS, Bryant Vogel\.br\Date and Time Signed: 01/10/24 09:02 EDT\.br\Electronically Co- Signed By: Alis Velásquez\.br\Date and Time Co-Signed: 01/10/24 08:59 EDT Ambulatory Visit Summaryon 71-68-4613Ufdzjvjbbp Visit SummaryAmbulatory Visit Summary ALICJA REYES :1955 [...] REYNOLDS, Bryant Vogel Where: [facility] [address] [facility] [place] [address]- Tuesday 8:00 AM EDT With: Where: [facility] [address] [address]- Tuesday 9:00 AM EDT With: Buster REYNOLDS, Javier Garvin Where: [facility] Tuesday 8:00 AM EST With: Where: [facility] [address] [address]- Medications What How Much When Why Instructions [...] 1 Tablets By Mouth Every day Unchanged [facility] ([facility] Prescription) 'Number 1' Glucometer and test [...] you for choosing us for your care. 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 (more content not included) ...NormalTrinity Health System Twin City Medical CenterPTH [place]act[place] 96-30-4627Fnkcmzcpxk.intact [Mass/Vol]23 pg/mLInvalid Interpretation Inex66-55VbuazjTrinity Health System Twin City Medical Center Comment on above:Result Comment: Performed at: [facility] [address] [id number] PhD Malik FernandoPerformed By: #### [id number] #### [facility] Laboratory [address] [place], [place] [address]D Urineon 15-33-5693Pmzhdtqb identified Cx Nom (U)Microbiology PROCEDURE: Urine Culture [R1] SOURCE: U CleanCatch BODY SITE: COLLECTED DATE/TIME: 12/29/2023 15:42 EDT RECEIVED DATE/TIME: 12/29/2023 17:12 EDT START DATE/TIME: 12/29/2023 17:12 EDT FREE TEXT SOURCE: EDDA [facility], Dacia BAÑUELOS [facility], Dacia FINAL REPORTS Final Report [...] Locations R1: This test was performed at: [facility], [address] [place] [address], [address]- , , CzjdquKsyyvdOhioHealth Nelsonville Health CenterComment on above:Performed By: #### [id number] #### [facility] [address] [place] [address]Kumekkq Message Officeon 35-39-5306Vfeoenm Message Office General Message Office --- --- --- --- --- --- --- --- --- From: Jhon, DirectInbox To: ALICJA REYES Sent: 12/31/23 02:30:27 AM EDT Subject: Discharge Summary Ready to View A summary regarding your recent visit is available in the Documents section of your health record.[facility] Hospital[facility] Miscellaneous-LCon 31-93-5770Mfk MiscellaneousCOMMENTInvalid Interpretation CodeTrinity Health System Twin City Medical CenterComment on above:Order Comment: Random sample, not 24hr collection UrineResult Comment: Test Ordered: [id number] Magnesium, U Magnesium, U 5.1 mg/dL CB Reference Range: Not Estab. Performed at: [facility] [address] [id number] PhD Malik FernandoPerformed By: #### [id number] #### [facility] [address] [place] [address]UXAFQKIOLAbnnnay By: Zach Alvarez on 07-69-8401Qlsawdm [Mass/Vol]168 mg/eSGdqw71 - 99 mg/dLOKLAHOMA HEART [facility] [place] [facility] POC SubsectionComment on above:Result Comment: Notified RN/MDPOC Device [id number] 1Invalid Interpretation Code [facility] POC SubsectionPOC User [id number] 1Invalid Interpretation CodeFT POC SubsectionPOC UsernameHZAC RUSSOEInvalid Interpretation CodeFT POC SubsectionGlucose [Mass/Vol]150 mg/eGBpms66 - 99 mg/dLOKLAHOMA HEART [facility]OSPITAL [facility] [place] POC SubsectionComment on above:Result Comment: Notified RN/MDPOC Device [id number] 1Invalid Interpretation CodeOKLAHOMA HEART [facility] [place] POC SubsectionPOC User [id number] 1Invalid Interpretation CodeOKLAHOMA HEART [facility]OSPITAL [facility] [place] [facility] POC SubsectionPOC UsernamZAC SummersEInvalid Interpretation CodeOKLAHOMA HEART [facility]OSP[facility] [place] POC SubsectionCHEMISTRYOrdered By: SYSTEM SYSTEM on 12-30-2023U Pfqlifrksb65.7 mg/dLInvalid Interpretation CodeRemisol ChemUr Total Ceinxda75.4 mg/dLInvalid Interpretation CodeRemisol ChemAnion gap [Moles/Vol]15 mmol/LNormal6 - 16 mEq/LRemisol ChemCalcium [Mass/Vol]10.0 mg/dLNormal8.9 - 11.1 mg/dLRemisol ChemChloride [Moles/Vol]101 mmol/XPsjupe097 - 111 mmol/LRemisol ChemCO2 [Moles/Vol]26 mmol/JKlmgyy96 - 31 mmol/LRemisol ChemCreatinine [Mass/Vol]1.2 mg/dLNormal0.5 - 1.3 mg/dLRemisol RzxddHNB58 mL/min/1.73 a4Tlyqyc >=59mL/min/1.73 b4Mcjkxip ChemGlucose [Mass/Vol]166 mg/oZJnraky62 - 199 mg/dL Remisol ChemMagnesium [Mass/Vol]1.6 mg/dLNormal1.3 - 2.4 mg/dLRemisol Chem Potassium [Moles/Vol]4.9 mmol/LNormal3.5 - 5.3 mmol/LRemisol ChemSodium [Moles/Vol]137 mmol/YYrvkxy406 - 145 mmol/LRemisol ChemTSH Qn1.54 m[IU]/LNormal 0.34 - 5.60 mcIU/mLRemisol ChemUrea nitrogen [Mass/Vol]17 mg/dLNormal5 - 21 mg/dLRemisol ChemUrea nitrogen/Creatinine [Mass ratio]14 mg/kvAhavdh51 - 20 Remisol ChemCapillary Glucose POCon 54-09-1056Mpvhopj [Mass/Vol]168 mg/dLHigh 55-99[facility] HospitalComment on above:Result Comment: Notified RN/MD Performed By: #### [id number] #### [facility] Laboratory [address] [place], [place] [address]ECILFAXQJJEaaakyj By: SYSTEM SYSTEM on 36-87-6806Fxfznarbi/100 WBC (Bld)1.1 %Normal0.0 - 2.0 %Remisol HemeBasophils/Leukocytes Auto (Bld) [Pure # fraction]0.1 E9/LNormal0.0 - 0.2 E9/LRemisol HemeEosinophils (Bld) [#/Vol]0.2 E9/LNormal0.0 - 0.5 E9/LRemisol HemeEosinophils/100 WBC (Bld)3.3 %Normal0.0 - 8.0 %Remisol HemeErythrocyte distribution width (RBC) [Ratio]13.3 %Wxptok81.9 - 14.2 %Remisol HemeHematocrit (Bld) [Volume fraction]37.9 %Eiunuz61.7 - 49.0 % Remisol HemeHemoglobin (Bld) [Mass/Vol]13.4 g/dLLow13.5 - 17.5 gm/dLRemisol Heme Lymphocytes (Bld) [#/Vol]1.5 E9/LNormal1.0 - 4.0 E9/LRemisol HemeLymphocytes/100 WBC (Bld)22.5 %Dolcuo85.0 - 50.0 %Remisol HemeMCH (RBC) [Entitic mass]33.8 pg Ggndrg06.0 - 34.0 pgRemisol HemeMCHC (RBC) [Mass/Vol]35.2 g/vGWleldo07.4 - 36.0 gm/dLRemisol HemeMCV (RBC) [Entitic vol]96.0 zBObujth70.0 - 100.0 fLRemisol Heme Monocytes (Bld) [#/Vol]0.7 E9/LNormal0.2 - 1.0 E9/LRemisol HemeMonocytes/100 WBC (Bld)10.5 %Normal4.0 - 14.0 %Remisol HemeNeutrophils (Bld) [#/Vol]4.1 E9/L Normal2.0 - 7.5 E9/LRemisol HemeNeutrophils/100 WBC (Bld)62.6 %Gbonoj74.0 - 75.0 %Remisol MofqXqwmhwus512.0 E9/AAxowqz425.0 - 500.0 E9/LRemisol HemePlatelet mean volume (Bld) [Entitic vol]7.2 fLNormal6.4 - 10.8 fLRemisol HemeRBC (Bld) [#/Vol]4.0 E12/LLow4.3 - 5.9 E12/LRemisol HemeWBC corrected for nucl RBC Auto (Bld) [#/Vol]6.6 E9/LNormal4.0 - 11.0 E9/LRemisol HemeInpatient Clinical Summary on 36-73-6460Vtilurlgi Clinical SummaryInpatient Clinical Summary [place] [id number] Clinical Summary Person Information: Name: ALICJA REYES Age: 68 Years : 1955 Sex: Male PCP: Nancy Grace MD Marital Status: Race: White Ethnicity: Non- or Language: Macedonian Visit Id: Visit Reason: Abnormal diagnostic test; SENT BY DR GRACE MAGNESIUM IS LOW Speciality: Acuity: Enc Type: Inpatient Med Service: Medical Arrival: 12/29/2023 13:33:35 Discharge: Dispo Type: Admitted as IP to this Hosp Address: [address] [place] [phone] Provider Notes: Diagnosis: 1:Hypomagnesemia; 2:UTI (urinary tract [...] When: Ramos Euceda [address] [place] [address] Business (1) Comments: Call for followup appointment in [place] office With: Address: When: Nancy Grace [facility] [place] [address] Business (2) 01/05/2024 7:45 AM Type Location Start [facility] Follow Up w/TCM [facility] 01/05/2024 7:45 AM 01/05/2024 8:05 AM Confirmed URO Office Visit [facility] ZAIN Casiano 01/10/2024 8:15 AM 01/10/2024 8:30 AM Confirmed Cardiology Follow Up (FT) [facility] 01/13/2024 9:00 AM 01/13/2024 9:15 AM Confirmed Medicare Wellness Subsequent [facility] 07/09/2024 8:00 AM 07/09/2024 9:00 AM Confirmed Patient Education Information: How to Take Your Blood Pressure, Khcx-tq-Ruzi; Form - Blood Pressure Record Sheet; Urinary Tract Infection, Adult, Bvlp-ou-Spzk; Hypomagnesemia cyanocobalamin, levofloxacin, lisinopril, magnesium oxide 400 mg [facility]In[facility] Clinical SummaryInpatient Clinical Summary [address] [address] Clinical Summary Person Information: Name: ALICJA REYES Age: 68 Years : 1955 Sex: Male PCP: Nancy Grace MD Marital Status: Race: White Ethnicity: Non- or Language: Macedonian Visit Id: Visit Reason: Abnormal diagnostic test; SENT BY DR GRACE MAGNESIUM IS LOW Speciality: Acuity: Enc Type: Inpatient Med Service: Medical Arrival: 12/29/2023 13:33:35 Discharge: Dispo Type: Admitted as IP to this Hosp Address: [address] [place] [phone] Provider Notes: Diagnosis: 1:Hypomagnesemia; 2:UTI (urinary tract [...] Mouth every day. Refills: 6. Misc Prescription ([facility] Prescription) Alcohol prep pads Use to [...] Follow up: With: Address: [facility] [place] [address] [facility] () 01/05/2024 7:45 AM Type Location Start [facility] Hospital Follow Up w/TCM [facility] 01/05/2024 7:45 AM 01/05/2024 8:05 AM Confirmed URO Office Visit [facility] 01/10/2024 8:15 AM 01/10/2024 8:30 AM Confirmed [facility] 01/13/2024 9:00 AM 01/13/2024 9:15 AM Confirmed Medicare Wellness Subsequent [facility] 07/09/2024 8:00 AM 07/09/2024 9:00 AM Confirmed Patient Education Information:[facility] HospitalInpatient Patient Summaryon 37-39-2796Svewkjmed Patient SummaryInpatient Patient Summary ALICJA REYES :1955 [...] EDT With: Ruiz REYNOLDS, Nancy Thompson Where: [address] [address]- Tuesday 8:15 AM EDT With: EMMY REYNOLDS, Bryant Vogel Where: [facility] [address] [place] [address]- Tuesday 9:00 AM EDT With: Buster REYNOLDS, Javier Garvin Where: [facility] Tuesday 8:00 AM EST With: Where: [facility] [place] [address] [place] [address]- New Follow Up Appointments after Discharge Follow Up with Nancy Grace When: 01/05/2024 07:45 AM EDT Where: [address] [place] [address]- Business (2) Follow Up with Ramos Euceda When: Comments: Call for followup appointment in [place] office Where: [place] [address]- Business (1) Medications What How Much When Why Instructions Next Dose New acetaminophen (acetaminophen 325 mg Tab) 2 Tablets By Mouth Every 6 hours as needed for Pain start as new med New cyanocobalamin (cyanocobalamin 1000 mcg Tab) 1 Tablets By Mouth Every day Pickup at [facility]/pharmacy #[id number] 12/31/23 9am New levofloxacin (Levaquin 500 mg Tab) 1 Tablets By Mouth Every 24 hours Duration: 10 Days Pickup at [facility]/pharmacy #[id number] start as new med today New lisinopril (lisinopril 40 mg Tab) 1 Tablets By Mouth Every day Pickup at [facility]/pharmacy #[id number] 12/31/23 9am New multivitamin (Therapeutic Multiple Vitamin Tab) See instructions Oral Daily Printed Prescription 12/31/23 9am Changed magnesium oxide (magnesium oxide 400 mg Tab) 1 Tablets By Mouth 2 times a day Pickup at [facility]/pharmacy #[id number] 12/30/23 9pm Unchanged amlodipine (amLODIPine [...] 500 mg Ta (more content not included)... [facility] SummaryIn[facility] Patient Summary [address] [address] Patient Discharge Instructions PERSON INFORMATION [...] up: With: Address: When: [place] [address] Business (1) Comments: Call for followup appointment in [place] office With: Address: When: Nancy Grace [facility] [place] [address] Business (2) 01/05/2024 7:45 AM In the event that this physician does not participate in your insurance network, please consult with your insurance company to find a nearby participating provider. Type Location Start Finish [facility] Follow Up w/TCM [facility] 01/05/2024 7:45 AM 01/05/2024 8:05 AM Confirmed URO Office Visit [facility] [place] 01/10/2024 8:15 AM 01/10/2024 8:30 AM Confirmed Cardiology Follow Up (FT) [facility] 01/13/2024 9:00 AM 01/13/2024 9:15 AM Confirmed Medicare Wellness Subsequent [facility] 07/09/2024 8:00 AM 07/09/2024 9:00 AM Confirmed Comment: ERIC Song ROBIN D, have received the attached patient education materials/instructions and have verbalized understanding: Patient Signature Date Clinican/Nurse Signature Date HERE ARE THE MEDICATION CHANGES THAT OCCURRED DURING YOUR HOSPITAL STAY New Medications [id number], [address] [id number], [phone] cyanocobalamin (cyanocobalamin 1000 mcg Tab) 1 Tablets [...] Medications to Continue Taking That Have Changed [id number], [address], [place] [id number], [phone] START: magnesium oxide (magnesium oxide 400 mg [...] Refills: 6. Last Dose: (more content not included)...[facility]In[facility] Patient Summary [place] [address] Patient Discharge Instructions PERSON INFORMATION Name: ALICJA [...] Address: When: Nancy Grace [address] [place] [address] Business (2) 01/05/2024 7:45 AM In the event that this physician does not participate in your insurance network, please consult with your insurance company to find a nearby participating provider. Type Location Start [facility] Follow Up w/TCM [facility] [place] 01/05/2024 7:45 AM 01/05/2024 8:05 AM Confirmed URO Office Visit [facility] [place] 01/10/2024 8:15 AM 01/10/2024 8:30 AM Confirmed Cardiology Follow Up (FT) [facility] 01/13/2024 9:00 AM 01/13/2024 9:15 AM Confirmed Medicare Wellness Subsequent [facility] [place] 07/09/2024 8:00 AM 07/09/2024 9:00 [...] BY MOUTH EVERY DAY. (more content not included)...NormalTrinity Health System Twin City Medical CenterLab Miscellaneous-LCon 57-99-1064Wqyu [id number] Interpretation [facility] CampusComment on above:Order Comment: Random sample, not 24hr collection UrineResult Comment: Corrected test codePerformed By: #### [id number] #### [facility] [address], [place] [address]Bathfnjqh Laboratory TestingOrdered By: Dacia BAÑUELOS on 85-25-3054Snwm [id number] 1Invalid Interpretation [facility] SendOutsSSComment on above:Result Comment: Corrected test codeTest Nameurine magInvalid Interpretation CodeOKLAHOMA HEART [facility] [place] SendOutsSSTSH With T4fr Reflexon 13-60-8665ROG Qn1.54 m[IU]/LNormal0.34-5.60Fisher [facility] HospitalComment on above:Performed By: #### [id number] #### [place] [facility] [address], [place] [address]PGLSZPTYJRgyjeaz By: Lab ROPUser on 07-28-3273Nkbbcle [Mass/Vol]170 mg/nTEets14 - 99 mg/dLOKLAHOMA HEART [facility] [place] POC SubsectionPOC Device [id number] 1Invalid Interpretation CodeOKLAHOMA HEART [facility] [place] [place] POC SubsectionPOC User [id number] 1Invalid Interpretation [facility] POC SubsectionPOC UsernameMILLER, ROKYAInvalid Interpretation CodeOKLAHOMA HEART [facility] [place] POC SubsectionCHEMISTRYOrdered By: SYSTEM SYSTEM on 75-77-2954Jzqbxzmyq [Mass/Vol]1.7 mg/dLNormal1.3 - 2.4 mg/dLRemisol Chem Amphetamines [...] [Mass/Vol]9.8 mg/dLNormal8.9 - 11.1 mg/dLRemisol ChemChloride [Moles/Vol]103 mmol/WZmfwmh351 - 111 mmol/LRemisol ChemCO2 [Moles/Vol]23 mmol/L Nfbwkr29 - 31 mmol/LRemisol ChemCobalamin (Vitamin B12) [Mass/Vol]156 pg/mL Bmyogg46 - 1500 pg/mLRemisol ChemCreatinine [Mass/Vol]1.3 mg/dLNormal0.5 - 1.3 mg/dLRemisol SjjkbUUW03 mL/min/1.73 s2Gizbqf>=59mL/min/1.73 s0Dqbjjnw Chem Ferritin [Mass/Vol]113 ng/oTNiwefu37 - 336 ng/mLRemisol ChemFolate [Mass/Vol] 16.3 ng/mLNormal>=6.7ng/mLRemisol ChemGlucose [Mass/Vol]148 mg/fJYcuaot53 - 199 mg/dLRemisol ChemIron [Mass/Vol]113 ug/dAPqrxnq49 - 153 mcg/dLRemisol ChemIron binding capacity [Mass/Vol]336 ug/wMPlcjaa015 - 400 mcg/dLRemisol UjupRWT719 [iU]/cVeolmg10 - 218 Int._Unit/LRemisol ChemMagnesium [Mass/Vol]0.7 mg/dLInvalid Interpretation Code1.3 - 2.4 mg/dLRemisol ChemComment on above:Result Comment: Critical Result Verified by Previous Result Critical Result S_M.7 Called to and read back by: KELSIE CHAN at: 12/29/2023 14:47:41 by:AGPhosphate [Mass/Vol]2.8 mg/dLNormal1.9 - 4.6 mg/dL Remisol ChemPotassium [Moles/Vol]4.2 mmol/LNormal3.5 - 5.3 mmol/LRemisol Chem Sodium [Moles/Vol]138 mmol/OOscqpr815 - 145 mmol/LRemisol ChemTransferrin [Mass/Vol]240 mg/yEYijckl794 - 370 mg/dLRemisol ChemUrea nitrogen [Mass/Vol]19 mg/dLNormal5 - 21 mg/dLRemisol ChemUrea nitrogen/Creatinine [Mass ratio]15 mg/mg Cyxxue65 - 20Remisol ChemHEMATOLOGYOrdered By: SYSTEM SYSTEM on 12-29-2023 Basophils/100 WBC (Bld)1.3 %Normal0.0 - 2.0 %Remisol HemeBasophils/Leukocytes Auto (Bld) [Pure # fraction]0.1 E9/LNormal0.0 - 0.2 E9/LRemisol HemeEosinophils (Bld) [#/Vol]0.2 E9/LNormal0.0 - 0.5 E9/LRemisol HemeEosinophils/100 WBC (Bld) 3.2 %Normal0.0 - 8.0 %Remisol HemeErythrocyte distribution width (RBC) [Ratio] 13.0 %Uuuobd66.9 - 14.2 %Remisol HemeHematocrit (Bld) [Volume fraction]38.4 % Yflxyg28.7 - 49.0 %Remisol HemeHemoglobin (Bld) [Mass/Vol]13.3 g/dLLow13.5 - 17.5 gm/dLRemisol HemeLymphocytes (Bld) [#/Vol]1.7 E9/LNormal1.0 - 4.0 E9/L Remisol HemeLymphocytes/100 WBC (Bld)24.1 %Jwiehu23.0 - 50.0 %Remisol HemeMCH (RBC) [Entitic mass]33.3 gbHpkzpq58.0 - 34.0 pgRemisol HemeMCHC (RBC) [Mass/Vol] 34.7 g/uSMcjvmk02.4 - 36.0 gm/dLRemisol HemeMCV (RBC) [Entitic vol]96.2 fLNormal 80.0 - 100.0 fLRemisol HemeMonocytes (Bld) [#/Vol]0.7 E9/LNormal0.2 - 1.0 E9/L Remisol HemeMonocytes/100 WBC (Bld)10.6 %Normal4.0 - 14.0 %Remisol Heme Neutrophils (Bld) [#/Vol]4.2 E9/LNormal2.0 - 7.5 E9/LRemisol HemeNeutrophils/100 WBC (Bld)60.8 %Usmibi19.0 - 75.0 %Remisol KoksXaiumewu242.0 E9/CPcaxmw211.0 - 500.0 E9/LRemisol HemePlatelet mean volume (Bld) [Entitic vol]7.2 fLNormal6.4 - 10.8 fLRemisol HemeRBC (Bld) [#/Vol]4.0 E12/LLow4.3 - 5.9 E12/LRemisol Heme Reticulocytes/100 RBC (Bld)1.4 %Normal0.5 - 2.2 %Remisol HemeWBC corrected for nucl RBC Auto (Bld) [#/Vol]6.9 E9/LNormal4.0 - 11.0 E9/LRemisol HemeLab Miscellaneous-LCon 46-05-5298Dose Nameurine magInvalid Interpretation [facility] CampusComment on above:Order Comment: Random sample, not 24hr collection UrinePerformed By: #### [id number] #### [facility] [address] [place], [place] [address]Jpqugmkoqz - Microbiology and Antimicrobial susceptibility Ordered By: Amber Jeffries on 26-93-7869Gsljzrhh identified Cx Nom (U)75,000 cfu/ml Streptococcus speciesFisher - [facility] And HospitalURINALYSISOrdered By: SYSTEM SYSTEM on 37-40-8655Mugfiuoe Auto Ql (U)1+ /HPFInvalid Interpretation Code Trace/HPFFTMC UA Auto SSBilirubin Ql (U)NegativeNormalNegativemg/dLFTMC UA Auto SSClarity (U)Clear (12/29/23 3:42 PM)NormalClearFTMC UA Auto SSColor (U)Light-Yellow 3 (12/29/23 3:42 PM)NormalYellowFTMC UA Auto SSComment on above:Interpretive Data: Microscopic readings are only performed on those samples that meet specific criteria set forth by [facility].Epithelial cells.squamous Auto (Urine sed) [#/Area]0-2 graded/HPFInvalid [...] *NA* (12/29/23 3:42 PM)Invalid Interpretation Code1.005 - 1.030[facility] UA Auto SS Urobilinogen (U) [Mass/Vol]NegativeNormalNegativemg/dLOKLAHOMA HEART HOSPITAL [facility] [place] UA Auto SSWBC Auto (Urine sed) [#/Area]>75 graded/HPFInvalid Interpretation Code0-5graded/HPFOKLAHOMA HEART HOSPITAL – [place] UA Auto SSURINALYSISOrdered By: Dacia BAÑUELOS on 96-87-4050PF Spec DescClean Catch (12/29/23 3:42 PM)NormalOKLAHOMA HEART HOSPITAL [facility] [place] UA Auto SSAmbulatory Visit Summaryon 12-27-2023 Ambulatory [...] REYNOLDS, Bryant Vogel Where: [facility] Interpretation [address] [place] [address]- \.br\ Someone Will Contact You Regarding These Appointments\.br\ [facility] External Ambulatory Referral, Nephrology, 12/27/23 8:10:00 EDT, HypomagnesemiaTrinity Health System Twin City Medical CenterAmbulatory Visit SummaryAmbulatory Visit Summary ERICKOANTONIO Garvin :1955 [...] REYNOLDS, Bryant Vogel [facility]: [facility] Interpretation [address] [place] [address]- \.br\ Someone Will Contact You Regarding These Appointments\.br\ [facility] External Ambulatory Referral, Nephrology, 12/27/23 8:10:00 EDT, HypomagnesemiaTrinity Health System Twin City Medical CenterBMPon 51-18-1755Cqhyv gap [Moles/Vol]14 mmol/LNormal6-16 [facility] Medical CenterComment on above:Performed By: #### [id number] #### [facility] [address], [place] [address]Lzfqeup [Mass/Vol]8.5 mg/dLLow8.9-11.1FOhioHealth Marion General HospitalComment on above:Performed By: #### [id number] #### [facility] [address], [place] [address]Lzlkzcec [Moles/Vol]104 mmol/MDyoabu495-209WqlqpkTrinity Health System Twin City Medical CenterComment on above:Performed By: #### [id number] #### [facility] [address], [place] [address]CR2 [Moles/Vol]24 mmol/DRmdaia05-58BufbdbTrinity Health System [facility] Center Comment on above:Performed By: #### [id number] #### [facility] [address], [place] [address]Aexnhcjqga [Mass/Vol]1.5 mg/dLHigh0.5-1.3FOhioHealth Marion General HospitalComment on above:Performed By: #### [id number] #### [facility] [address], [place] [address]Isvllnd [Mass/Vol]158 mg/yGZkwfom73-442RkhiygTrinity Health System Twin City Medical CenterComment on above:Performed By: #### [id number] #### [facility] [address], [place] [address]Szlxwrepq [Moles/Vol]4.7 mmol/LNormal3.5-5.3FOhioHealth Marion General HospitalComment on above:Performed By: #### [id number] #### [facility] [address], [place] [address]Nbcwop [Moles/Vol]137 mmol/AYlftby902-952AoyrqwTrinity Health System Twin City Medical CenterComment on above:Performed By: #### [id number] #### [facility] [address], [place] [address]Mmty nitrogen [Mass/Vol]19 mg/dLNormal5-21Tr[facility] Medical CenterComment on above:Performed By: #### [id number] #### [facility] [address], [place] [address]Ikbh nitrogen/Creatinine [Mass ratio]13 No CrhhaRcyjub44-45 [facility] Medical CenterComment on above:Performed By: #### [id number] #### [facility] [address], [place] [address]BPVIEYEEDDeqivyw By: SYSTEM SYSTEM on 08-96-4895Ziuee gap [Moles/Vol]14 mmol/LNormal6 - 16 mEq/LRemisol ChemCalcium [Mass/Vol]8.5 mg/dLLow 8.9 - 11.1 mg/dLRemisol ChemChloride [Moles/Vol]104 mmol/GSgchic337 - 111 mmol/L Remisol ChemCO2 [Moles/Vol]24 mmol/LAfxxig89 - 31 mmol/LRemisol ChemCreatinine [Mass/Vol]1.5 mg/dLHigh0.5 - 1.3 mg/dLRemisol YvgtpRCS74 mL/min/1.73 m2Low >=59mL/min/1.73 c6Fqubmqi ChemGlucose [Mass/Vol]158 mg/jKJxyldb22 - 199 mg/dL Remisol ChemMagnesium [Mass/Vol]0.9 mg/dLInvalid Interpretation Code1.3 - 2.4 mg/dLRemisol ChemComment on above:Result Comment: Critical Result Verified by Repeat Analysis Critical Result S_M.9 Called to and read back by: DOCTOR DIEGO at: 12/27/2023 20:26:51 by:[id number] [Moles/Vol]4.7 mmol/LNormal3.5 - 5.3 mmol/LRemisol ChemSodium [Moles/Vol]137 mmol/SZxshdv779 - 145 mmol/LRemisol ChemUrea nitrogen [Mass/Vol]19 mg/dLNormal5 - 21 mg/dLRemisol ChemUrea nitrogen/Creatinine [Mass ratio]13 mg/llMyxyzw45 - 20Remisol ChemFamily Medicine Office/Clinic Noteon 25-45-3866Fxtsgf Medicine Office/Clinic NoteFami Medicine Office/Clinic Note HPI Staff Alicja is a 68 year old male presenting for ER follow up ER followup: Hospital: [facility] Visit date: 12/23/23 Symptoms the patient dizziness, [...] data Procedure/Surgical History Ar (more content not included)...NormalTrinity Health System Twin City Medical CenterComment on above:Result Comment: Electronically Signed By: Ruiz REYNOLDS, Nancy Thompson\.br\Date and Time Signed: 12/27/23 08:08 EDTMagnesiumon 06-33-0806Bounhjmtv [Mass/Vol]0.9 mg/dLAbnormal1.3-2.4FOhioHealth Marion General HospitalComment on above:Result Comment: Critical Result Verified by Repeat Analysis Critical Result S_M.9 Called to and read back by: DOCTOR DIEGO at: 12/27/2023 20:26:51 by:[id number] By: #### [id number] #### [facility] [address], [place] [address]aWSQxo 76-32-9837jTHI26 mL/min/1.73 m2Low>=59Tr[facility] City Medical CenterComment on above:Order Comment: Order added by Discern Expert. Performed By: #### [id number] #### [facility] [address], [place] [address]H Urineon 62-60-0739Agwitclm identified Cx Nom (U)Microbiology PROCEDURE: Urine Culture [R1] SOURCE: U CleanCatch BODY SITE: COLLECTED DATE/TIME: 12/22/2023 08:35 EDT RECEIVED DATE/TIME: 12/22/2023 19:56 EDT START DATE/TIME: 12/22/2023 19:56 EDT FREE TEXT SOURCE: SHIRA WHATLEY, MARINO KEARNS CNP, MARINO Butler FINAL REPORTS Final Report [] Verified Date/Time: 12/24/2023 07:57 EDT 2,000 cfu/ml Mixed skin contaminants Performing Locations R1: This test was performed at: [facility], [address] [place] [address], [address] , , DcefnrIhsbvuMercy Health Clermont HospitalComment on above:Performed By: #### [id number] #### [facility] [address] [place] [address]VBXzl 75-90-4152Nxtdqsq [Mass/Vol]4.4 g/dLNormal3.3-5.0[facility] Medical CenterComment on above:Performed By: #### [id number] #### [address] [address]Pgfflzr/Globulin (S) [Mass conc ratio]1.7Menkoi0.1-2.2FOhioHealth Marion General HospitalComment on above:Performed By: #### [id number] #### [facility] [address] [place] [address]QYG [Catalytic activity/Vol]62 Int._Unit/SIzuena30-70LycaueTrinity Health System Twin City Medical CenterComment on above:Performed By: #### [id number] #### [facility] [address] [place] [address]TKK No additional P-5'-P [Catalytic activity/Vol]22 Int._Unit/L Normal6-46[facility] Medical CenterComment on above:Performed By: #### [id number] #### [facility] [address] [place] [address]HRU [Catalytic activity/Vol]21 Int._Unit/LNormal5-43[facility] Medical CenterComment on above:Performed By: #### [id number] #### [facility] [address] [place] [address]Pgwhkamju [Mass/Vol]0.9 mg/dLNormal0.0-1.1FOhioHealth Marion General HospitalComment on above:Performed By: #### [id number] #### [facility] [address] [place] [address]Ezdztmvj (S) [Mass/Vol]2.9 g/dLNormal1.4-4.0[facility] Medical CenterComment on above:Performed By: #### [id number] #### [facility] [address] [place] [address]Ihxvbgp [Mass/Vol]7.3 g/dLNormal6.0-7.8[facility] Medical CenterComment on above:Performed By: #### [id number] #### [facility] [address] [place] [address]Rcfixhdkrov 93-18-1008Kcnlmuaed [Mass/Vol]mg/dLAbnormal1.3-2.4 [facility] Medical CenterComment on above:Result Comment: Critical Result S_MG:<0.5 Called to and read back by: ANGELLA GUERRERO at: 408:18:07 by:AG Critical Result Verified by Repeat AnalysisPerformed By: #### [id number] #### [facility] [address] [place] [address]FUV w/ Auto Diffon 00-56-2416Ujftlywlw/100 WBC (Bld)0.7 %Normal 0.0-2.0[facility] Medical CenterComment on above:Performed By: #### [id number] #### [facility] [address] [place] [address]Soadtrefp/Leukocytes Auto (Bld) [Pure # fraction]0.1 E9/LNormal 0.0-0.2FOhioHealth Marion General HospitalComment on above:Performed By: #### [id number] #### [facility] [address] [place] [address]Ublnlzvupsp (Bld) [#/Vol]0.1 E9/LNormal0.0-0.5FOhioHealth Marion General HospitalComment on above:Performed By: #### [id number] #### [facility] [address] [place] [address]Kafrzqyeddj/100 WBC (Bld)1.5 %Normal0.0-8.0[facility] Medical CenterComment on above:Performed By: #### [id number] #### [facility] [address] [place] [address]Oxxuznnqzny distribution width (RBC) [Ratio]13.3 %Normal 10.9-14.2FOhioHealth Marion General HospitalComment on above:Performed By: #### [id number] #### [facility] [address] [place] [address]Gbhoybklla (Bld) [Volume fraction]38.5 %Ntjveo84.7-49.0[facility] Medical CenterComment on above:Performed By: #### [id number] #### [facility] [address] [place] [address]Aytgqfqjtw (Bld) [Mass/Vol]13.2 g/dLLow13.5-17.5FOhioHealth Marion General HospitalComment on above:Performed By: #### [id number] #### [facility] [address] [place] [address]Marhbrlgqci (Bld) [#/Vol]1.4 E9/LNormal1.0-4.0[facility] CenterComment on above:Performed By: #### [id number] #### [facility] [address] [place] [address]Rbbnkbnrwte/100 WBC (Bld)18.7 %Otfldh22.0-50.0[facility] Medical CenterComment on above:Performed By: #### [id number] #### [facility] [address], [place] [address]UVB (RBC) [Entitic mass]33.5 vxTymmov25.0-34.0[facility] CenterComment on above:Performed By: #### [id number] #### [facility] [address] [place] [address]IWKR (RBC) [Mass/Vol]34.3 g/yTJxkptx81.4-36.0[facility] CenterComment on above:Performed By: #### [id number] #### [facility] [address] [place] [address]QCD (RBC) [Entitic vol]97.5 bSGqwjpx61.0-100.0[facility] CenterComment on above:Performed By: #### [id number] #### [facility] [address] [place] [address]Tjbnvmhsv (Bld) [#/Vol]0.6 E9/LNormal0.2-1.0[facility] Medical CenterComment on above:Performed By: #### [id number] #### [facility] [address] [place] [address]Pllsikcywkv (Bld) [#/Vol]5.3 E9/LNormal2.0-7.5FOhioHealth Marion General HospitalComment on above:Performed By: #### [id number] #### [facility] [address] [place] [address]Gfxtsdfbwyc/100 WBC (Bld)70.6 %Qoysbo12.0-75.0[facility] Medical CenterComment on above:Performed By: #### [id number] #### [facility] [address] [place] [address]Fzdukvvf366.0 E9/UUubjnb759.0-500.0[facility] Comment on above:Performed By: #### [id number] #### [facility] [address] [place] [address]Ytofelea mean volume (Bld) [Entitic vol]7.6 fLNormal6.4-10.8 [facility] CenterComment on above:Performed By: #### [id number] #### [facility] Laboratory [address], [place] [address]CHX (Bld) [#/Vol]4.0 E12/LLow4.3-5.9[facility] Comment on above:Performed By: #### [id number] #### [facility] [address], [place] [address]NXC corrected for nucl RBC Auto (Bld) [#/Vol]7.4 E9/LNormal 4.0-11.0[facility] Medical CenterComment on above:Performed By: #### [id number] #### [facility] [address], [place] [address]IRORAFKZLCdmfexj By: Jaime Washburn on 27-83-0355Sumwv gap [Moles/Vol]19 mmol/LHigh6 - 16 mEq/LRemisol ChemCalcium [Mass/Vol]8.2 mg/dLLow 8.9 - 11.1 mg/dLRemisol ChemChloride [Moles/Vol]100 mmol/TJym756 - 111 mmol/L Remisol ChemCO2 [Moles/Vol]23 mmol/YLhzdge86 - 31 mmol/LRemisol ChemCreatinine [Mass/Vol]1.6 mg/dLHigh0.5 - 1.3 mg/dLRemisol HavziECT67 mL/min/1.73 m2Low >=59mL/min/1.73 u0Ulqntxu ChemGlucose [Mass/Vol]255 mg/bZVkgn39 - 199 mg/dL Remisol ChemPotassium [Moles/Vol]3.8 mmol/LNormal3.5 - 5.3 mmol/LRemisol Chem Sodium [Moles/Vol]138 mmol/ICkgbgy232 - 145 mmol/LRemisol ChemUrea nitrogen [Mass/Vol]17 mg/dLNormal5 - 21 mg/dLRemisol ChemUrea nitrogen/Creatinine [Mass ratio]11 mg/zoAhzwvr87 - 20Remisol ChemCMPon 82-92-6886Hmlwf gap [Moles/Vol]19 mmol/LHigh6-16[facility] CenterComment on above:Performed By: #### [id number] #### [facility] Laboratory [address], [place] [address]Zdsmnzn [Mass/Vol]8.2 mg/dLLow8.9-11.1FOhioHealth Marion General HospitalComment on above:Performed By: #### [id number] #### [facility] [address], [place] [address]Lvhwzzfw [Moles/Vol]100 mmol/ARhr339-924SfczopTrinity Health System Twin City Medical CenterComment on above:Performed By: #### [id number] #### [facility] [address], [place] [address]TG3 [Moles/Vol]23 mmol/HVwsdxf26-75SwcqopTrinity Health System [facility] Comment on above:Performed By: #### [id number] #### [facility] [address], [place] [address]Jyqehgbihx [Mass/Vol]1.6 mg/dLHigh0.5-1.3FOhioHealth Marion General HospitalComment on above:Performed By: #### [id number] #### [facility] [address], [place] [address]Mwktore [Mass/Vol]255 mg/yPYgzr61-105QqibcwTrinity Health System Twin City Medical CenterComment on above:Performed By: #### [id number] #### [facility] [address], [place] [address]Qzrxbvrig [Moles/Vol]3.8 mmol/LNormal3.5-5.3FOhioHealth Marion General HospitalComment on above:Performed By: #### [id number] #### [facility] [address], [place] [address]Ebjzow [Moles/Vol]138 mmol/NIfgamn370-351SqzianTrinity Health System Twin City Medical CenterComment on above:Performed By: #### [id number] #### [facility] [address], [place] [address]Yjtc nitrogen [Mass/Vol]17 mg/dLNormal5-21[facility] [facility] Medical CenterComment on above:Performed By: #### [id number] #### [facility] Laboratory [address], [place] [address]Zfwj nitrogen/Creatinine [Mass ratio]11 No YwgmkOnuaro44-48 [facility] CenterComment on above:Performed By: #### [id number] #### [facility] Laboratory [address], [place] [address]Ovcnww Medicine Office/Clinic Noteon 30-43-6012Duxlmh Medicine Office/Clinic NoteBaystate Franklin Medical Center Medicine Office/Clinic Note HPI Staff Alicja is [...] day(s), # 14 tab(s), Refills(s) 0, Pharmacy: [facility], 172, cm, 12/22/23 7:41:00 EDT, Height/Length Dosing, 107.8, kg, :41:00 EDT, Weight Dosing Urine Culture 2. Vomiting (R11.10: Vomiting, unspecified) Continue Zofran as needed Diet as tolerated Encourage fluids Ordered: ciprofloxacin, 500 mg = 1 tab(s), Oral, q12hr, X 7 day(s), # 14 tab(s), Refills(s) 0, Pharmacy: [facility], 172, cm, 12/22/23 7:41:00 EDT, Height/Length Dosing, 107.8, kg, :41:00 EDT, Weight Dosing CBC w/ Auto Diff Comprehensive Metabolic Panel Lab Specimen Collect 56952 Magnesium Level Urnls Dip Stick Auto w/o Microscopy POC 97815 3. Former smoker (Z87.891: Personal history of nicotine dependence) Encouraged to continue as a non-smoker Ordered: Lab Specimen Collect 67201 Urnls Dip Stick Auto w/o Microscopy POC 18872 4. BMI 36.0-36.9,adult (Z68.36: Body mass index [...] at subsequent visits. Ordered: Lab Specimen Collect 17072 Urnls Dip Stick Auto w/o Microscopy POC 11307 Orders: magnesium oxide, 400 mg = 1 tab(s), Oral, Daily, # 60 tab(s), Refills(s) 0, Pharmacy: [facility], 172, cm, 12/22/23 7:41:00 EDT, [...] disorder, recurrent, moderate Murmur (more content not included)...[facility]zer HospitalComment on above: Result Comment: Electronically Signed By: MARINO KEARNS CNP\.oliver\Date and Time Signed: 12/22/23 10:28 EDTHEMATOLOGYOrdered By: SYSTEM SYSTEM on 12-22-2023 Basophils/100 WBC (Bld)0.7 %Normal0.0 - 2.0 %Remisol HemeBasophils/Leukocytes Auto (Bld) [Pure # fraction]0.1 E9/LNormal0.0 - 0.2 E9/LRemisol HemeEosinophils (Bld) [#/Vol]0.1 E9/LNormal0.0 - 0.5 E9/LRemisol HemeEosinophils/100 WBC (Bld) 1.5 %Normal0.0 - 8.0 %Remisol HemeErythrocyte distribution width (RBC) [Ratio] 13.3 %Hzczii44.9 - 14.2 %Remisol HemeHematocrit (Bld) [Volume fraction]38.5 % Dvsrbn57.7 - 49.0 %Remisol HemeHemoglobin (Bld) [Mass/Vol]13.2 g/dLLow13.5 - 17.5 gm/dLRemisol HemeLymphocytes (Bld) [#/Vol]1.4 E9/LNormal1.0 - 4.0 E9/L Remisol HemeLymphocytes/100 WBC (Bld)18.7 %Ejlqzc90.0 - 50.0 %Remisol HemeMCH (RBC) [Entitic mass]33.5 mvQduoqs90.0 - 34.0 pgRemisol HemeMCHC (RBC) [Mass/Vol] 34.3 g/rDFtsyly66.4 - 36.0 gm/dLRemisol HemeMCV (RBC) [Entitic vol]97.5 fLNormal 80.0 - 100.0 fLRemisol HemeMonocytes (Bld) [#/Vol]0.6 E9/LNormal0.2 - 1.0 E9/L Remisol HemeMonocytes/100 WBC (Bld)8.5 %Normal4.0 - 14.0 %Remisol Heme Neutrophils (Bld) [#/Vol]5.3 E9/LNormal2.0 - 7.5 E9/LRemisol HemeNeutrophils/100 WBC (Bld)70.6 %Twlngl73.0 - 75.0 %Remisol FhnsUrltogtu085.0 E9/QVuiscu692.0 - 500.0 E9/LRemisol HemePlatelet mean volume (Bld) [Entitic vol]7.6 fLNormal6.4 - 10.8 fLRemisol HemeRBC (Bld) [#/Vol]4.0 E12/LLow4.3 - 5.9 E12/LRemisol HemeWBC corrected for nucl RBC Auto (Bld) [#/Vol]7.4 E9/LNormal4.0 - 11.0 E9/LRemisol HemeeGFRon 01-45-5483qBUS64 mL/min/1.73 m2Low>=59[facility] Comment on above:Order Comment: Order added by Discern Expert.Performed By: #### [id number] #### [facility] Laboratory [address] [address]Olvpxm Summary.on 69-44-6618Bazmpz Summary. ESIOIokc76ZEl8nIi+PGhlYWQ+FA2XPMEzF18xsFEzmO7aX5NHHUnUOpcyXKBMCIdMTlBuygFbWE2yqO NjZXJu [file] rPKbo9Z2ODVij (more content not included)...[facility] IntraOperative Documentson 64-78-8483PvzclCoqbyhhyz Documents [id number]#1.00TIFMedina HospitalConsent for Procedure/Surgeryon 73-66-0123Mczusxs for Procedure/Surgery [id number]#1.00TIFMedina HospitalConsent for Treatmenton 21-84-9185Hidhtzi for Treatment [id number]#1.00[facility] HospitalInpatient Patient Summaryon 02-97-3738Encdsudvi Patient Summary [place] [id number] Clinical Summary Person Information Name: ALICJA REYES Age: 68 Years : 1955 Sex: Male PCP: Nancy Grace MD Marital Status: Race: White Ethnicity: Non- or Language: Macedonian Visit Id: Visit Reason: FEELING OF INCOMPLETE BLADDER EMPTYING AND BPH WITH LUTS Speciality: Acuity: Enc Type: Outpatient Med Service: Surgery Arrival: 11/28/2023 13:21:43 Discharge: Dispo Type: Address: [address] [place] [id number] Provider Notes: Diagnosis: Problems Active Hypertension Feeling [...] Mouth every day. Refills: 6. Misc Prescription ([facility] Prescription) Alcohol prep pads Use to [...] Follow up: With: Address: When: Bryant TAO [address] [place] [address], [address], [place] [address] [facility] (1) Comments: As we discussed, I would [...] State Cardiology Follow Up (FT) FT.[facility] [place] [facility] 12/16/2023 9:00 AM 12/16/2023 9:15 AM Confirmed URO Office Visit [facility] ZAIN Casiano 01/10/2024 8:15 AM 01/10/2024 8:30 AM Confirmed FM Medicare Wellness Subsequent [facility] 07/09/2024 8:00 AM 07/09/2024 (more content not included)...[facility]zer HospitalIntraOperative Documentson 46-78-7681GnqbqBauerouee Documents [id number]#1.00TIFFNoMercy Health Clermont HospitalMain OR Intraoperative Recordon 54-11-2488Lqtf OR Intraoperative Record IntraOp Document Type FTURO Summary Primary Physician: Bryant TAO MD Finalized Date/Time: 11/28/23 15:54:06 Pt. Name: ALICJA REYESO.B./Sex: 1955 Male Med Rec #: [id number] Physician: Bryant TAO MD Financial #: [id number] Pt. Type: O Room/Bed: / Admit/Disch: 11/28/23 [...] Angie Vogel Role Performed Surgeon - Primary Director [facility] - Primary Scrub - Primary Time In [...] Signatures Signed By: Monica Lanier RN 11/28/23 15:54NoMercy Health Clermont HospitalMain OR Preoperative Recordon 02-62-0804Aibf OR Preoperative RecordHolding Area Document Type FTURO Summary Primary Physician: Bryant TAO MD Finalized Date/Time: 11/28/23 15:10:28 Pt. Name: ALICJA REYES /Sex: 1955 Male Med Rec #: [id number] Physician: Bryant TAO MD Financial #: [id number] Pt. Type: O Room/Bed: / Admit/Disch: 11/28/23 [...] Complaints of Pain: No Skin Integrity Intact, [place], Warm, & Dry Vitals - EU Blood Pressure 170/90 Pulse 77 bpm Respirations 80 br/min SPO2 Last Modified By: Ivania Hager LPN 11/28/23 15:10:23 Finalized By: Ivania Hager LPN Document Signatures Signed By: Ivania Hager LPN 11/28/23 15:10NoMercy Health Clermont HospitalOperative Reporton 38-15-8207Vkpuxxntt ReportPatient: ALICJA REYES Age: 68 years Sex: Male : 1955 Associated Diagnoses: None Author: Bryant TAO MD Procedure Operative Information Details: Date/ Time: 11/28/2023 15:54:00. Pre-Op Dx: Feeling of incomplete bladder emptying (DYN29-QO R39.14, Working, Medical), Hypotonic neurogenic bladder (INL61-TO N31.9, Working, Medical), Urinary retention (DEP59-CP R33.9, Working, Medical), BPH with obstruction/lower urinary tract symptoms (OYA13-GD N40.1, Working, Medical). Post-Op Dx: Same. Anesthesia [...] light on this. He agrees with the plan..Holzer HospitalComment on above: Result Comment: Electronically Signed By: Bryant TAO MD\.br\Date and Time Signed: 11/28/23 15:57 EDTOutpatient Surgery Discharge Instructionon 11-28-2023 Outpatient Surgery Discharge Instruction [id number]#1.00TIFFNoWayne [facility]iatric Center And HospitalOutpatient Surgery Discharge Instruction [address] [address] Patient Discharge Instructions PERSON INFORMATION [...] Follow up: With: Address: When: Bryant Rider [facility], [address], [address] [address] Business (1) Comments: As we [...] emptying the bladder intermittently. Type Location Start [facility] Cardiology Follow Up (FT) FT.[facility] [place] [facility] 12/16/2023 9:00 AM 12/16/2023 9:15 AM Confirmed URO Office Visit [facility] ZAIN Casiano 01/10/2024 8:15 AM 01/10/2024 8:30 AM Confirmed Medicare Wellness Subsequent [facility] 07/09/2024 8:00 AM 07/09/2024 9:00 AM [...] to serve you. Thank you [facility] Office/Clinic Notedalton 49-68-4376Fmgzjz Medicine Office/Clinic NoteI Staff Alicja is a [...] Date Status Comments influe (more content not included)...Holzer HospitalComment on above:Result Comment: Electronically Signed By: Ruiz REYNOLDS, Nancy Cordoba.br\Date and Time Signed: 11/01/23 13:00 EDTPatient Educationon 34-24-4310Cmfzgle Education Nutrition BMI for Adults What is [...] numbers. This can be done either in [place]onian (U.S.) or metric measurements. Note that charts and online BMI calculators are available to help you find your BMI quickly and easily without having to do these calculations yourself. To calculate your BMI in Macedonian (U.S.) measurements: 1. Measure your weight in [...] for Disease Control and Prevention: www.cdc.gov ? [place] Heart Association: www.heart.org ? National Heart, Lung, and Blood [place]: www.nhlbi.nih.gov Summary ? Body mass index (BMI) is a number that is calculated from a person's weight and height. ? BMI may help estimate how much of a person's weight is composed of fat. BMI can help identify those who may be at higher risk for certain medical problems. ? BMI can be measured using Macedonian measurements or metric measurements. ? BMI charts are used to identify whether you are underweight, normal weight, overweight, or obese. This information is not intended to replace advice given to you by your health care provider. Make sure you discuss any questions you have with your health care provider. Document Revised: 02/13/2020 Document Reviewed: 12/21/2019 [employer] Patient Education ? 2022 [employer] Authoria.[facility] Consent for Treatmenton 94-76-6588Ccibvlj for Treatment [id number]#1.00TIFFNoMercy Health Clermont HospitalHeart and Vascular Office/Clinic Noteon 15-59-5834Xyjor and Vascular Office/Clinic NoteChief Complaint 2 month [...] with voice recognition artificial intelligence software, specifically NuPotential, MediaPass and or [employer]ostics. Substitutions may have occurred due to the [...] mg Tab, 400 m (more content not included)...Holzer HospitalComment on above:Result Comment: Electronically Signed By: Jacinto Ramirez PA-C\.oliver\Date and Time Signed: 10/19/23 08:50 EDTPhysician Order on 86-91-3351Ncdozvobu [id number]#1.00TIFF [facility] HospitalPathology Noteon 80-76-7482Tgvetbhyi Note [id number]#1.00TIFFNormOhioHealth Nelsonville Health CenterAmbulatory Visit Summaryon 53-41-0386Ctpafdnuza Visit Summary ALICJA REYES :1955 Visit Date:09/22/2023 [...] Bryant TAO MD Where: [facility] [address] [address]- \.br\ You Need to Schedule the Following Appointments\.br\ Follow Up with Bryant TAO MD, URL When: \.br\ Where:\.br\ [facility] [address] [facility]\.br\ [place] [address]-\.br\ \.br\ Medications\.br\ What How Much When Instructions\.br\ [...] including vitamins, herbs, eye drops, creams, and fuon-pqh-fyzspuf medicines.\.br\ ? \.br\ Any problems you or [...] you to take them.\.br\ ? \.br\ Taking ybbx-rkw-jqcqbun medicines, vitamins, herbs, and supplements.\.br\ Tests\.br\ You [...] A medicine to help you relax [facility] HospitalUrology Office/Clinic Noteon 59-89-0215Yrzsact Office/Clinic NoteChief Complaint F/U to review path [...] with voice recognition artificial intelligence software, specifically NuPotential, MediaPass and or [employer]. Substitutions may have occurred due to the inherent limitations of voice recognition and artificial intelligence software. 1. Elevated PSA (R97.20: Elevated prostate specific antigen [PSA]) PSA: 06/22/11 - 0.41 11/09/18 - 0.41 01/10/20 - 0.36 02/03/21 - 0.44 07/13/22 - 0.43 04/04/23 - 6.1 MRI of prostate 07/21/23 [facility] - A focal area [...] urinary tract symptoms) MRI of prostate 07/21/23 [facility] - Prostate volume 26 [...] Feeling of incomplete bladder emptying) 06/04/23 - [facility] due to chills and dizziness after [...] TID, UACS, BUN/CR, and (more content not included)...Holzer HospitalComment on above:Result Comment: Electronically Signed By: EMMY REYNOLDS, Bryant Vogel\.br\Date and Time Signed: 09/22/23 13:08 EDT\.br\Electronically Co-Signed By: Allison Hernandez\Date and Time Co-Signed: 09/22/23 13:03 EDTHeart and Vascular Office/Clinic Noteon 50-39-2279Zkrvp and Vascular Office/Clinic NoteChief Complaint here for [...] with voice recognition artificial intelligence software, specifically NuPotential, MediaPass and or [employer] I [employer]ostics. Substitutions may have occurred due to the inherent limitations of voice recognition and artificial intelligence software. ATTESTATION: Documentation services were performed after patient or guardian consented to allow [employer] to record this visit. SAMANTHA station air traffic control specialist and provider reviewed before signing. SAMANTHA: [...] mEq= 1 cap(s), Oral (more content not included)...Holzer HospitalComment on above:Result Comment: Electronically Signed By: Yfn REYNOLDS, Troy Santamaria\.br\Date and Time Signed: 09/14/23 09:16 EDT\.br\Electronically Co-Signed By: Darling Keen\.br\Date and Time Co-Signed: 08/18/2417:28 EDTPathology Noteon 84-77-5250Pmzpjegqh Note [id number]#1.00TIFFHolzer HospitalGlucose Glucometer (BldC) [Mass/Vol]Ordered By: Bryant Tao on 09-09-2023 Glucose [Mass/Vol]199 mg/dLCleveland Clinic FoundationComment on above: Random Glucose Reference Range is dependent on time and content of last meal. Glucose of more than 200 mg/dL in a nonstressed, ambulatory subject supports the diagnosis of Diabetes Mellitus.Operative Reporton 57-86-6501Klhtaxipv Report [id number]#1.00TIFMedina HospitalProgress Note-Physicianon 18-41-9521Imedggbr Note-PhysicianPatient: ALICJA REYES Age: 68 years Sex: [...] diabetes mellitus with hypercholesterolemia / SNOMED CT 372766481 / Confirmed linked DM with HLD per OP CDI policy. Tachycardia / SNOMED CT 9313770 / Confirmed Right flank pain / SNOMED CT 530129528 / Confirmed Urinary retention / SNOMED CT 783356988 / Confirmed Diabetic nephropathy associated with type 2 diabetes mellitus / SNOMED CT 8087957997 / Confirmed Recurrent UTI / SNOMED CT 511360100 / Confirmed Major depressive disorder, recurrent, moderate / SNOMED CT 890512018 / Confirmed added per 06/10/2023 query response. Elevated PSA / SNOMED CT 1283444226 / Confirmed Prostate cancer screening / SNOMED CT 695573209 / Confirmed Kidney stone / SNOMED CT 859809984 / Confirmed Incomplete bladder emptying / SNOMED CT 740294989 / Confirmed Hypokalemia / SNOMED CT 20709406 / Confirmed Hypercholesterolemia / SNOMED CT 61843742 / Confirmed Murmur / SNOMED CT 490590817 / Confirmed Gastroesophageal reflux disease without esophagitis / ICD-10-CM K21.9 / Confirmed Fatigue / SNOMED CT 876564482 / Confirmed Primary hypertension / SNOMED CT 74461792 / Confirmed Edema / SNOMED CT 465889395 / Confirmed SOB (shortness of breath) on exertion / SNOMED CT 188559724 / Confirmed Dizziness / SNOMED CT 1325115665 / Confirmed Diastolic dysfunction / SNOMED CT 8193404 / Confirmed Hematuria / SNOMED CT 919073805 / Confirmed BPH with urinary obstruction / SNOMED CT 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 Canceled: Urinary frequency / SNOMED CT 031816258 Canceled: Disorder of prostate / SNOMED CT 19797677 Canceled: Alcohol abuse / SNOMED CT 10445214 Histories Procedure history: back surgery. Comments: 11/15/2012 8:03 Susan Howard RN lower back Arthroscopy right knee (24165521). Comments: 11/15/2012 8:04 Susan Howard RN right hand and elbow surgery LEFT. Comments: 11/15/2012 8:04 Susan Howard RN left Carpal tunnel release LEFT (717985975). Hand tendon repaired LEFT (685883152). Comments: 01/13/2023 11:49 Ruthann Mathur LPN left thumb tendon Spinal fusion x2 (91811444). Social History Social & Psychosocial Habits Alcohol [...] adequate air exchange. Cardiovascular: Regular rhythm. Plan [place] Society of Anesthesiologists (ASA) physical status classification: Class III. Anesthetic Preoperative Plan: Anesthesia General.[facility] HospitalComment on above:Result Comment: Electronically Signed By: Abraham Pitts DO, Juan Nobles\Date and Time Signed: 09/02/23 09:03 EDTCHEMISTRYOrdered By: Lab ROPUser on 73-93-6942Ksxfqrw [Mass/Vol]156 mg/rNRfdh62 - 99 mg/dLOKLAHOMA HEART [facility] POC SubsectionPOC Device [id number] 1Invalid Interpretation CodeOKLAHOMA HEART HOSPITAL [facility] [place] POC SubsectionPOC User [id number] 1Invalid Interpretation CodeOKLAHOMA HEART HOSPITAL [facility] [place] POC Subsection POC UsernameAJOSE WINNInvalid Interpretation CodeOKLAHOMA HEART HOSPITAL [facility] [place] POC Subsection Capillary Glucose POCon 83-35-5814Eyltrzu [Mass/Vol]156 mg/eQTups39-56HswgmtTrinity Health System [facility] Medical CenterComment on above:Performed By: #### [id number] ####[facility] [address] [place], [place] [address]Nnnrhnx for Procedure/Surgeryon 66-56-5492Wvipqqn for Procedure/Surgery [id number]#1.00TIFMedina HospitalConsent for Treatmenton 71-24-6535Nrtqipm for Treatment [id number]#1.00TIFMedina HospitalH&P Updateon 09-01-2023H&P Update [id number]#1.00[facility] Community HospitalProgress Note-Physicianon 56-91-0186Azfbprlq Note-PhysicianPatient: ALICJA REYES Age: 68 years Sex: [...] patient and his agree with the plan.NormalFisher Laurel Medical CenterComment on above:Result Comment: Electronically Signed By: EMMY REYNOLDS, Bryant Howard\Date and Time Signed: 09/01/23 14:46 EDTPhysician Orderon 07-72-5680Bzynrozgd [id number]#1.00TIFFNormal [facility] CenterU Microalbon 37-49-6230Uwmisyd DL <= 20 mg/L (U) [Mass/Vol]7.8 mg/dLHigh0.0-1.9[facility] CenterComment on above: Performed By: #### [id number] ####[facility] Odrklx[address]but[address] [facility] [facility] Hospitaldylancarthage area hospitaladdyFA[place], [place] [address]Qzzcxluqu Orderon 13-57-9168Inhfoujft Order [id number]#1.00TIFFNormalTrinity Health System Twin City Medical CenterU Protein/Creat Ratioon 38-94-3408Mtloylp/Creatinine (U) [Ratio]49.30 mg/gm CrNormal.00-200.00[facility] CenterComment on above:Performed By: #### [id number] ####[facility] [address] [place] [address], [id number] Vqsekcbyts97.0 mg/dLInvalid Interpretation [facility]ont[facility] CampusComment on above:Performed By: #### [id number] ####[facility] [address] [place] [address], [place]Md Total Fujrpma38.7 mg/dLInvalid Interpretation [facility] Ironton CampusComment on above: Performed By: #### [id number] ####[facility] [address] [place], [id number] Visit Summaryon 00-08-3734Oqbwdwnqmu Visit Summary ALICJA REYES :1955 Visit Date:08/15/2023 [...] Yfn REYNOLDS, Troy Santamaria Where: [facility] 2023 1:30 PM EDT With: Where: [facility] Tuesday 8:00 AM EST With: Where: [facility] Glen RidgeNoalTrinity Health System [facility] Medical CenterBMPon 28-48-7244Tandd gap [Moles/Vol]15 mmol/LNormal-16[facility] CenterComment on above:Performed By: #### [id number], [id number], [id number] #### [facility] Laboratory [address], [place] [address]Txgvyrv [Mass/Vol]8.3 mg/dLLow8.9-11.1FOhioHealth Marion General HospitalComment on above:Performed By: #### [id number], [id number], [id number] #### [facility] Laboratory [address], [place] [address]Oifxxhfj [Moles/Vol]101 mmol/PMizgss227-593MwtnieTrinity Health System [facility] City Medical CenterComment on above:Performed By: #### [id number], [id number], [id number] #### [facility] Laboratory [address], [place] [address]JN9 [Moles/Vol]27 mmol/BSzzqno99-55UgakqdTrinity Health System [facility] Comment on above:Performed By: #### [id number], [id number], [id number] #### [facility] Laboratory [address], [place] [address]Cylgieeelz [Mass/Vol]1.4 mg/dLHigh0.5-1.3FOhioHealth Marion General HospitalComment on above:Performed By: #### [id number], [id number], 7733290 #### [facility] Laboratory [address], [place] [address]Lvjcvgh [Mass/Vol]258 mg/eTTbbj47-255FyoezrTrinity Health System Twin City Medical CenterComment on above:Performed By: #### [id number], [id number], [id number] #### [facility] Laboratory [address], [place] [address]Kzzfnfprh [Moles/Vol]3.6 mmol/LNormal3.5-5.3FOhioHealth Marion General HospitalComment on above:Performed By: #### [id number], [id number], [id number] #### [facility] Laboratory [address], [place] [address]Kckqsp [Moles/Vol]139 mmol/FYqrdfl877-128DapovcTrinity Health System Twin City Medical CenterComment on above:Performed By: #### [id number], [id number], [id number] #### [facility] Laboratory [address], [place] [address]Gwvu nitrogen [Mass/Vol]16 mg/dLNormal5-21[facility] CenterComment on above:Performed By: #### [id number], 93502307, [id number] #### [facility] Laboratory [address], [place] [address]Jrzp nitrogen/Creatinine [Mass ratio]11 No WwjfmIpsffc89-24 [facility] Medical CenterComment on above:Performed By: #### [id number], [id number], [id number] #### [facility] Laboratory [address], [place] [address]BAJSHNBBJNqhejjs By: SYSTEM SYSTEM on 15-39-2705Afglg gap [Moles/Vol]15 mmol/LNormal6 - 16 mEq/LRemisol ChemCalcium [Mass/Vol]8.3 mg/dLLow 8.9 - 11.1 mg/dLRemisol ChemChloride [Moles/Vol]101 mmol/BIuraux190 - 111 mmol/L Remisol ChemCO2 [Moles/Vol]27 mmol/PCpocgv41 - 31 mmol/LRemisol ChemCreatinine [Mass/Vol]1.4 mg/dLHigh0.5 - 1.3 mg/dLRemisol PwwbvSOP20 mL/min/1.73 m2Low >=59mL/min/1.73 l8Yeatqpg ChemGlucose [Mass/Vol]258 mg/vJXtno37 - 199 mg/dL Remisol ChemPotassium [Moles/Vol]3.6 mmol/LNormal3.5 - 5.3 mmol/LRemisol Chem Sodium [Moles/Vol]139 mmol/LLwpjdz828 - 145 mmol/LRemisol ChemUrea nitrogen [Mass/Vol]16 mg/dLNormal5 - 21 mg/dLRemisol ChemUrea nitrogen/Creatinine [Mass ratio]11 mg/vaLrlvya11 - 20Remisol ChemCHEMISTRYOrdered By: Irma Irwin on 13-05-3235MeJ0d (Bld) [Mass fraction]7.4 %High<=5.9%[facility] ChemAutoSSFamily Medicine Office/Clinic Noteon 31-14-4505Eotcui Medicine Office/Clinic NoteHPI Staff Lima is a [...] about ordering him a BP unit to [facility]. needszofran refilled [facility] also also needs omeprazole refilled has [...] 7:04:00 EDT, Weight Dosing (more content not included)...NormalTrinity Health System Twin City Medical CenterComment on above: Result Comment: Electronically Signed By: Ruiz REYNOLDS, Nancy Cordoba.br\Date and Time Signed: 08/15/23 07:18 HGTFkkM6uvm [id number] (Bld) [Mass fraction]7.4 % High<=5.9Tr[facility] Health System Twin City Medical CenterComment on above:Performed By: #### [id number] #### [facility] [address], [place] [address]Lkrskww Educationon [phone] EducationNutrition BMI for Adults What is BMI? [...] numbers. This can be done either in [place] ([place] or metric measurements. Note that charts and online BMI calculators are available to help you find your BMI quickly and easily without having to do these calculations yourself. To calculate your BMI in [place]onian ([place] measurements: 1. Measure your weight in [...] for Disease Control and Prevention: www.cdc.gov ? [place] Heart Association: www.heart.org ? National Heart, Lung, and Blood [place]: www.nhlbi.nih.gov Summary ? Body mass index (BMI) is a number that is calculated from a person's weight and height. ? BMI may help estimate how much of a person's weight is composed of fat. BMI can help identify those who may be at higher risk for certain medical problems. ? BMI can be measured using Macedonian measurements or metric measurements. ? BMI charts are used to identify whether you are underweight, normal weight, overweight, or obese. This information is not intended to replace advice given to you by your health care provider. Make sure you discuss any questions you have with your health care provider. Document Revised: 02/13/2020 Document Reviewed: 12/21/2019 [employer] Patient Education ? 2022 [employer].NormalTrinity Health System Twin City Medical Center eGFRon [id number] mL/min/1.73 m2Low>=59Tr[facility] System Twin City Medical CenterComment on above:Order Comment: Order added by Discern Expert.Performed By: #### [id number] #### [facility] [address] [place] [address]CEJKNIDFNZqeimfv By: SYSTEM SYSTEM on 01-69-5877Oudcw gap [Moles/Vol]13 mmol/LNormal6 - 16 mEq/LRemisol ChemCalcium [Mass/Vol]8.2 mg/dLLow 8.9 - 11.1 mg/dLRemisol ChemChloride [Moles/Vol]98 mmol/UIiv583 - 111 mmol/L Remisol ChemCO2 [Moles/Vol]32 mmol/LHigh21 - 31 mmol/LRemisol ChemCreatinine [Mass/Vol]1.2 mg/dLNormal0.5 - 1.3 mg/dLRemisol ZbtovZLX50 mL/min/1.73 f5Iqmnwi >=59mL/min/1.73 o0Lwakolb ChemGlucose [Mass/Vol]195 mg/zPEtmfyo75 - 199 mg/dL Remisol ChemPotassium [Moles/Vol]3.3 mmol/LLow3.5 - 5.3 mmol/LRemisol ChemSodium [Moles/Vol]140 mmol/MGhvazz805 - 145 mmol/LRemisol ChemUrea nitrogen [Mass/Vol] 14 mg/dLNormal5 - 21 mg/dLRemisol ChemUrea nitrogen/Creatinine [Mass ratio]12 mg/ueNlaxfy47 - 20Remisol ChemCOAGULATIONOrdered By: Mariya Colon on 79-64-8408rBCD Coag (PPP) [Time]32.1 kLqrhxc42.1 - 36.5 second(s)[facility] Auto Coag Comment on above:Interpretive Data: Parameter [...] the same coagulation reagent and instrumentation as [facility]. Currently there are no coagulation studies available worldwide for children to 14 days, andno normal ranges. Heparin therapeutic range (represented by Anti-Factor Xa activity of 0.2 - 0.4 U/mL) corresponds to PTT of 56.6 - 109.0 sec.INR Coag (PPP) [Relative time]1.17 {INR}Invalid Interpretation CodeOKLAHOMA HEART HOSPITAL – [place] Auto CoagComment on above:Interpretive Data: INR results are specifically intended to assess patients stabilized on long-term Anticoagulation therapy suggested INR s Less Intensive Anticoagulation 2.0 3.0 Conventional Range 3.0 4.5PT Coag (PPP) [Time]13.1 sHigh9.4 - 12.5 second(s)[facility] Auto CoagComment on above:Interpretive Data: 15 days [...] the same coagulation reagent and instrumentation as [facility]. Currently there are no coagulation studies available worldwide for children to 14 days, andno normal ranges.HEMATOLOGYOrdered By: SYSTEM SYSTEM on 61-77-5223Dtdyyvvam/100 WBC (Bld)0.9 %Normal0.0 - 2.0 %Remisol HemeBasophils/Leukocytes Auto (Bld) [Pure # fraction]0.0 E9/LNormal0.0 - 0.2 E9/LRemisol HemeEosinophils (Bld) [#/Vol]0.2 E9/LNormal0.0 - 0.5 E9/LRemisol HemeEosinophils/100 WBC (Bld)3.1 %Normal0.0 - 8.0 %Remisol HemeErythrocyte distribution width (RBC) [Ratio]14.6 %High10.9 - 14.2 %Remisol HemeHematocrit (Bld) [Volume fraction]37.7 %Hxunqb50.7 - 49.0 % Remisol HemeHemoglobin (Bld) [Mass/Vol]12.7 g/dLLow13.5 - 17.5 gm/dLRemisol Heme Lymphocytes (Bld) [#/Vol]1.3 E9/LNormal1.0 - 4.0 E9/LRemisol HemeLymphocytes/100 WBC (Bld)23.3 %Xteqxb35.0 - 50.0 %Remisol HemeMCH (RBC) [Entitic mass]31.7 pg Dmlkyr56.0 - 34.0 pgRemisol HemeMCHC (RBC) [Mass/Vol]33.7 g/cWVdcloq39.4 - 36.0 gm/dLRemisol HemeMCV (RBC) [Entitic vol]94.0 hVDyuwwa30.0 - 100.0 fLRemisol Heme Monocytes (Bld) [#/Vol]0.6 E9/LNormal0.2 - 1.0 E9/LRemisol HemeMonocytes/100 WBC (Bld)10.0 %Normal4.0 - 14.0 %Remisol HemeNeutrophils (Bld) [#/Vol]3.6 E9/L Normal2.0 - 7.5 E9/LRemisol HemeNeutrophils/100 WBC (Bld)62.7 %Fvaqrk35.0 - 75.0 %Remisol HemePlatelet mean volume (Bld) [Entitic vol]7.7 fLNormal6.4 - 10.8 fL Remisol HemePlatelets (Bld) [#/Vol]237.0 E9/EYtshzr091.0 - 500.0 E9/LRemisol HemeRBC (Bld) [#/Vol]4.0 E12/LLow4.3 - 5.9 E12/LRemisol HemeWBC corrected for nucl RBC Auto (Bld) [#/Vol]5.8 E9/LNormal4.0 - 11.0 E9/LRemisol HemeCreatinine (Bld) [Mass/Vol]Ordered By: Ramandeep Porter on 66-85-8749Aqxoynztpx [Mass/Vol]1.2 mg/dL0.6-1.3FSouthwest General Health CenterComment on above:ER/ESD physician is notified/shown all ISTAT results.Critical values may be confirmed by laboratorytesting ifdeemed necessary by ER attending doctor.No Panel Information Ordered By: Ramandeep Porter on 79-18-7940Acclamc Estimated GFR (eGFR)> 60.0 [facility] FoundationCHEMISTRYOrdered By: SYSTEM SYSTEM on 87-73-0307Sxugh gap [Moles/Vol]15 mmol/LNormal6 - 16 mEq/LRemisol ChemCalcium [Mass/Vol]8.6 mg/dLLow8.9 - 11.1 mg/dLRemisol ChemChloride [Moles/Vol]100 mmol/L Lxe093 - 111 mmol/LRemisol ChemCO2 [Moles/Vol]28 mmol/AOzedcq88 - 31 mmol/L Remisol ChemCreatinine [Mass/Vol]1.3 mg/dLNormal0.5 - 1.3 mg/dLRemisol ChemeGFR 59 mL/min/1.73 y0Cfkeaj>=59mL/min/1.73 y4Eoqtial ChemGlucose [Mass/Vol]284 mg/dL High55 - 199 mg/dLRemisol ChemPotassium [Moles/Vol]4.1 mmol/LNormal3.5 - 5.3 mmol/LRemisol ChemSodium [Moles/Vol]139 mmol/JEzxoei830 - 145 mmol/LRemisol Chem Urea nitrogen [Mass/Vol]11 mg/dLNormal5 - 21 mg/dLRemisol ChemUrea nitrogen/Creatinine [Mass ratio]8 mg/mgLow10 - 20Remisol ChemCHEMISTRYOrdered By: SYSTEM SYSTEM on 06-92-4201Npuqw gap [Moles/Vol]15 mmol/LNormal6 - 16 mEq/L Remisol ChemCalcium [Mass/Vol]7.0 mg/dLInvalid Interpretation Code8.9 - 11.1 mg/dLRemisol ChemComment on above:Result Comment: Critical Result Verified by Repeat Analysis Critical Result S_CA.0 Called to and read back by: PREMIUM SERVICE REPRESENTATIVE ELI at: 06/13/2023 18:59:55 by:ELI PAYEURChloride [Moles/Vol]100 mmol/VAlk882 - 111 mmol/LRemisol ChemCO2 [Moles/Vol]27 mmol/ERmznid42 - 31 mmol/LRemisol Chem Creatinine [Mass/Vol]1.3 mg/dLNormal0.5 - 1.3 mg/dLRemisol HtwevZXB88 mL/min/1.73 n8Jmkuhd>=59mL/min/1.73 i4Oetphlb ChemGlucose [Mass/Vol]219 mg/dL High55 - 199 mg/dLRemisol ChemPotassium [Moles/Vol]2.7 mmol/LInvalid Interpretation Code3.5 - 5.3 mmol/LRemisol ChemComment on above:Result Comment: Critical Result Verified by Repeat Analysis Critical Result S_K:2.7 Called to and read back by: DR. PREMIUM SERVICE REPRESENTATIVE ELI at: 06/13/2023 18:59:55 by:ELI PAYEURSodium [Moles/Vol]139 mmol/YGuurjz664 - 145 mmol/LRemisol ChemUrea nitrogen [Mass/Vol]16 mg/dLNormal5 - 21 mg/dLRemisol Chem Urea nitrogen/Creatinine [Mass ratio]12 mg/zePwvyfn70 - 20Remisol ChemCHEMISTRY Ordered By: SYSTEM SYSTEM on 86-93-9469Wncbh gap [Moles/Vol]13 mmol/LNormal6 - 16 mEq/LRemisol ChemCalcium [Mass/Vol]8.6 mg/dLLow8.9 - 11.1 mg/dLRemisol Chem Chloride [Moles/Vol]97 mmol/DTbi766 - 111 mmol/LRemisol ChemCO2 [Moles/Vol]33 mmol/LHigh21 - 31 mmol/LRemisol ChemCreatinine [Mass/Vol]1.5 mg/dLHigh0.5 - 1.3 mg/dLRemisol LvudvKZH89 mL/min/1.73 m2Low>=59mL/min/1.73 t0Vhkjdhe ChemGlucose [Mass/Vol]201 mg/iPKzqj22 - 199 mg/dLRemisol ChemPotassium [Moles/Vol]3.3 mmol/L Low3.5 - 5.3 mmol/LRemisol ChemSodium [Moles/Vol]140 mmol/LKkriic726 - 145 mmol/LRemisol ChemUrea nitrogen [Mass/Vol]25 mg/dLHigh5 - 21 mg/dLRemisol Chem Urea nitrogen/Creatinine [Mass ratio]17 mg/rbIzigpq40 - 20Remisol ChemCHEMISTRY Ordered By: SYSTEM SYSTEM on 15-74-7310Winwhln [Mass/Vol]3.4 g/dLNormal3.3 - 5.0 gm/dLFTMC RemisolAlbumin/Globulin [Mass ratio]0.8 {ratio}Low1.1 - 2.2[facility] RemisolALP [Catalytic activity/Vol]80 [iU]/eWgprdq70 - 98 Int._Unit/LFTMC RemisolALT No additional P-5'-P [Catalytic activity/Vol]19 [iU]/dNormal6 - 46 Int._Unit/LFTMC RemisolAnion gap [Moles/Vol]16 mmol/LNormal6 - 16 mEq/LFTMC RemisolAST [Catalytic activity/Vol]19 [iU]/dNormal5 - 43 Int._Unit/LFTMC Remisol Bilirubin [Mass/Vol]1.1 mg/dLNormal0.0 - 1.1 mg/dLFTMC RemisolCalcium [Mass/Vol] 8.6 mg/dLLow8.9 - 11.1 mg/dLFTMC RemisolChloride [Moles/Vol]94 mmol/PNvy990 - 111 mmol/LFTMC RemisolCO2 [Moles/Vol]31 mmol/RSdmjgb05 - 31 mmol/LFTMC Remisol Creatinine [Mass/Vol]1.3 mg/dLNormal0.5 [...] [Mass/Vol]7.5 g/dLNormal6.0 - 7.8 gm/dLFTMC RemisolSodium [Moles/Vol]138 mmol/MDkbuep073 - 145 mmol/LFTMC RemisolUrea nitrogen [Mass/Vol] 16 mg/dLNormal5 - 21 mg/dLFTMC RemisolUrea nitrogen/Creatinine [Mass ratio]12 mg/onIfaovy24 - 20FT RemisolCHEMISTRYOrdered By: Isidro Leonard on 57-49-0112PjI0t (Bld) [Mass fraction]9.6 %High<=5.9%[facility] ChemAutoSSCHEMISTRY Ordered By: SYSTEM SYSTEM on 27-17-2096Moslqgkg specific Ag [Mass/Vol]6.1 ng/mL High0.1 - 3.5 ng/mLFT RemisolComment on above:Interpretive Data: The concentration of PSA determined by different manufacturers can vary due to di fferences in assay methods and reagent specificity. Values obtained from different assay methods cannot be used interchangeably. The methodology used for this result was chemiluminescence using [employer]'s Access Hybritech PSA reagent.CHEMISTRYOrdered By: SYSTEM SYSTEM on 93-85-4539Vnhpsuw [Mass/Vol]3.8 g/dLNormal3.3 - 5.0 gm/dLFTMC RemisolAlbumin/Globulin [Mass ratio]1.1 {ratio} Normal1.1 - 2.2[facility] RemisolALP [Catalytic activity/Vol]95 [iU]/kUiwznm78 - 98 Int._Unit/LFTMC RemisolALT No additional P-5'-P [Catalytic activity/Vol]20 [iU]/dNormal6 - 46 Int._Unit/LFTMC RemisolAnion gap [Moles/Vol]15 mmol/LNormal6 - 16 mEq/LFTMC RemisolAST [Catalytic activity/Vol]21 [iU]/dNormal5 - 43 Int._Unit/LFTMC RemisolBilirubin [Mass/Vol]0.8 mg/dLNormal0.0 - 1.1 mg/dLFTMC RemisolCalcium [Mass/Vol]8.6 mg/dLLow8.9 - 11.1 mg/dLFTMC RemisolChloride [Moles/Vol]98 mmol/MKzy610 - 111 mmol/LFTMC RemisolCholesterol [Mass/Vol]162 mg/qXMrlppy894 - 200 mg/dLFTMC RemisolCholesterol in HDL [Mass/Vol]40 mg/dL Invalid Interpretation CodeFTMC RemisolCholesterol in LDL [Mass/Vol]96 mg/dL Normal<=129mg/dLFTMC RemisolCholesterol in VLDL [Mass/Vol]23 mg/dLNormal7 - 40 mg/dLFTMC RemisolCO2 [Moles/Vol]27 mmol/VHhlnkh01 - 31 mmol/LFTMC Remisol Creatinine [Mass/Vol]1.2 mg/dLNormal0.5 - 1.3 mg/dLFTMC RemisolGFR/1.73 sq M.predicted among non-blacks MDRD (S/P/Bld) [Vol rate/Area]66 mL/min/1.73 m2 Normal>=59mL/min/1.73 m2FT Chem SGlobulin (S) [Mass/Vol]3.6 g/dLNormal1.4 - 4.0 gm/dLFTMC RemisolGlucose [Mass/Vol]314 mg/yRXahm60 - 199 mg/dLFTMC Remisol Potassium [Moles/Vol]4.2 mmol/LNormal3.5 - 5.3 mmol/LFTMC RemisolProtein [Mass/Vol]7.4 g/dLNormal6.0 - 7.8 gm/dLFTMC RemisolSodium [Moles/Vol]136 mmol/L Ijxvpl246 - 145 mmol/LFTMC RemisolTriglyceride [Mass/Vol]116 mg/dLNormal <=149mg/dLFTMC RemisolUrea nitrogen [Mass/Vol]15 mg/dLNormal5 - 21 mg/dLFTMC RemisolUrea nitrogen/Creatinine [Mass ratio]12 mg/ryDkkjrs25 - 20FT[facility] Remisol CHEMISTRYOrdered By: Isidro Leonard on 72-65-0629Igblocg DL <= 20 mg/L (U) [Mass/Vol]35.7 microgram/mLHigh0.0 - 19.0 mcg/mLFTMC RemisolAlbumin Elph (U) [Mass fraction]9.6 mg/dLInvalid Interpretation CodeFTMC RemisolCreatinine (U) [Mass/Vol]43.6 mg/dLInvalid Interpretation CodeFTMC RemisolU Prot/Creat Ratio 220.20 mg/gm CrHigh0.00 - 200.00 mg/gm CrFTMC RemisolCHEMISTRYOrdered By: Noe Betts on 65-97-8683LpL8y (Bld) [Mass fraction]8.4 %High<=5.9%[facility] ChemAutoSS HEMATOLOGYOrdered By: Zadspace SYSTEM on 41-26-1985Xinxqecha/100 WBC (Bld)0.6 % Normal0.0 - 2.0 %[facility] HemeAutoSSBasophils/Leukocytes Auto (Bld) [Pure # fraction]0.0 E9/LNormal0.0 - 0.2 E9/LFTMC HemeAutoSSEosinophils/100 WBC (Bld)1.8 %Normal0.0 - 8.0 %[facility] HemeAutoSSEosinophils/Leukocytes Auto (Bld) [Pure # fraction]0.1 E9/LNormal0.0 - 0.5 E9/LFTMC HemeAutoSSLymphocytes/100 WBC (Bld) 19.3 %Tggvgo03.0 - 50.0 %[facility] HemeAutoSSLymphocytes/Leukocytes Auto (Bld) [Pure # fraction]1.1 E9/LNormal1.0 - 4.0 E9/LFTMC HemeAutoSSMonocytes/100 WBC (Bld) 13.0 %Normal4.0 - 14.0 %[facility] HemeAutoSSMonocytes/Leukocytes Auto (Bld) [Pure # fraction]0.7 E9/LNormal0.2 - 1.0 E9/LFTMC HemeAutoSSNeutrophils/100 WBC (Bld) 65.3 %Pwxvhk44.0 - 75.0 %[facility] HemeAutoSSNeutrophils/Leukocytes Auto (Bld) [Pure # fraction]3.6 E9/LNormal2.0 - 7.5 E9/LFTMC HemeAutoSSHEMATOLOGYOrdered By: Nichol Martinez on 08-41-0228Dkluqdgskdr distribution width (RBC) [Ratio]12.8 % Kyoodf37.9 - 14.2 %[facility] HemeAutoSSHematocrit (Bld) [Volume fraction]36.6 %Low 37.7 - 49.0 %[facility] HemeAutoSSHemoglobin (Bld) [Mass/Vol]12.8 g/dLLow13.5 - 17.5 gm/dLFTMC HemeAutoSSMCH (RBC) [Entitic mass]33.7 vfRevqff01.0 - 34.0 pgFCREEK NATION COMM[facility] HemeAutoSSMCHC (RBC) [Mass/Vol]34.9 g/oZDzhakv81.4 - 36.0 gm/dLFT HemeAutoSS MCV (RBC) [Entitic vol]96.4 fYZquiww74.0 - 100.0 fLOKLAHOMA HEART H[facility] [place] HemeAutoSSPlatelet mean volume (Bld) [Entitic vol]7.6 fLNormal6.4 - 10.8 fLOKLAHOMA HEART HOSPITAL [facility] [place] HemeAutoSSPlatelets (Bld) [#/Vol]284.0 E9/GFbakvi577.0 - 500.0 E9/LFCREEK NATION COMM[facility] [place] HemeAutoSSRBC (Bld) [#/Vol] 3.8 E12/LLow4.3 - 5.9 E12/COUNT INCLUDES THE [facility] HemeAutoSSWBC corrected for nucl RBC Auto (Bld) [#/Vol]5.5 E9/LNormal4.0 - 11.0 E9/COUNT INCLUDES THE [facility] HemeAutoSSCBC AUTO DIFFon 07-13-2022 BASO #0.1 103/ulNormal0.0-0.1[facility] HospitalComment on above:Performed By: #### CBC #### [facility] [address] [place] [address] Dr. Pilo JansenBasophils/100 WBC (Bld)1.0 %Normal0.2-2.0[facility] Comment on above:Performed By: #### CBC #### [facility] [address] [place] [address] Dr. Pilo Lincoln #0.1 103/ulNormal0.0-0.7The [facility] CenterComment on above: Performed By: #### CBC #### [facility] [address] [place] [address] Dr. Pilo Mayfieldosinophils/100 WBC (Bld)2.1 %Normal0.9-7.0[facility] Comment on above:Performed By: #### CBC #### [facility] [address] [place] [address] Dr. Yilan ChangErythrocyte distribution width (RBC) [Ratio]12.0 %Qbhimt03.0-15.0 The [facility] CenterComment on above:Performed By: #### CBC #### [facility] [address] [place] [address] Dr. Pilo JansenHematocrit (Bld) [Volume fraction]40.7 %Critically low42.0-54.0 The [facility] CenterComment on above:Performed By: #### CBC #### [facility] [address] [place] [address] Dr. Pilo JansenHemoglobin (Bld) [Mass/Vol]13.4 g/dLCritically low14.0-18.0The [facility] CenterComment on above:Performed By: #### CBC #### [facility] [address] [place] [address] Dr. Pilo Fabian #0.02 10e3/ulNormal0.00-0.03The [facility] CenterComment on above:Performed By: #### CBC #### [facility] [address] [place] [address] Dr. Pilo Fabian %0.4 %Normal0.0-0.5The [facility] CenterComment on above: Performed By: #### CBC #### [facility] [address] [place] [address] Dr. Pilo Talamantes #1.4 103/ulNormal1.2-3.8The [facility] CenterComment on above:Performed By: #### CBC #### [facility] [address] [place] [address] Dr. Pilo Hansenhocytes/100 WBC (Bld)26.1 %Fjqcrk50.5-60.0The [facility] CenterComment on above:Performed By: #### CBC #### [facility] [address] [place] [address] Dr. Pilo AguayoUAL DIFF REQNONormalThe [facility] CenterComment on above: Performed By: #### CBC #### [facility] [address] [place] [address] Dr. Pilo Queen (RBC) [Entitic mass]33.2 pmNphgmb77.9-34.0The [facility] CenterComment on above:Performed By: #### CBC #### [facility] [address] [place] [address] Dr. Pilo Gutierrez (RBC) [Mass/Vol]32.9 g/xECiazna63.9-35.2The [facility] CenterComment on above:Performed By: #### CBC #### [facility] [address] [place] [address] Dr. Pilo Gutierrez (RBC) [Entitic vol]100.7 fLCritically high80.0-94.0The [facility] CenterComment on above:Performed By: #### CBC #### [facility] [address] [place] [address] Dr. Pilo Woods #0.5 103/ulNormal0.3-0.8The [facility] CenterComment on above:Performed By: #### CBC #### [facility] [address] [place] [address] Dr. Pilo Cortesocytes/100 WBC (Bld)9.6 %Normal1.7-12.0The [facility] Comment on above:Performed By: #### CBC #### [facility] [address] [place] [address] Dr. Pilo Alejandre #3.2 103/ulNormal1.4-6.5The [facility] CenterComment on above:Performed By: #### CBC #### [facility] [address] [place] [address] Dr. Pilo Michelutrophils/100 WBC (Bld)60.8 %Csumye79.0-75.0The [facility] CenterComment on above:Performed By: #### CBC #### [facility] [address] [place] [address] Dr. Pilo Pedrazalet mean volume (Bld) [Entitic vol]9.3 fLCritically low 9.5-13.5The [facility] CenterComment on above:Performed By: #### CBC #### [facility] [address] [address] [address] Pilo JansenPLT204 103/feSvkqor609-106Vxc [facility] on above: Performed By: #### CBC #### [facility] [address] [address] [address] Pilo JansenRBC4.04 106/ulCritically low4.70-6.10The [facility] CenterComment on above:Performed By: #### CBC #### [facility] [address] [address] [address] Pilo JansenWBC5.2 103/ulNormal4.0-11.0The [facility] on above: Performed By: #### CBC #### [facility] [address] [place] [address] Dr. Pilo JansenGLYCOHEMOGLOBIN A1Con 80-70-3522KJH RECOMMENDATIONSEE [facility] HospitalComhawthorn center on above:Result Comment: ADA RECOMMENDED LIMIT 4.0 - 6.0 ADA THERAPEUTIC TARGET < 7.0 ACTION SUGGESTED > 7.0Performed By: #### A1C #### [facility] [address] [place] [address] Dr. Pilo JansenGlucose [Mass/Vol]189 mg/dLNoTrinity Health System West Campus on above:Performed By: #### A1C #### [facility] [address] [place] [address] Dr. Pilo JansenHbA1c (Bld) [Mass fraction]8.2 %Critically high4.5-6.2The [facility] on above:Performed By: #### A1C #### [facility] [address] [address] [address] Pilo JansenLIPID PROFILEon 75-17-8797BLGZ-HDL RATIO NORMSEE [facility] CenterComhawthorn center on above:Result Comment: 3.3 - 4.4 LOW RISK 4.4 - 7.1 AVERAGE RISK 7.1 - 11.0 MODERATE RISK >11.0 HIGH RISKPerformed By: #### LIPID, CMP #### [facility] [address] [address] [address] Pilo JansenCholesterol [Mass/Vol]157 mg/dLNormal<=200The [facility] Comment on above:Performed By: #### LIPID, CMP #### [facility] [address] [address] [address] Pilo JansenCholesterol in HDL [Mass/Vol]53 mg/lEMdyqfk50-93Pyd [facility] CenterComment on above:Performed By: #### LIPID, CMP #### [facility] [address] [address] [address] Pilo JansenCholesterol in LDL [Mass/Vol]81.8 mg/dLNoAultman HospitalComment on above:Performed By: #### LIPID, CMP #### [facility] [address] [address] [address] Pilo Dwyerestercatarino.total/Cholesterol in HDL [Mass ratio]3.0 {ratio} NormalThe [facility] CenterComment on above:Performed By: #### LIPID, CMP #### [facility] [address] [place] [address] Dr. Pilo Magallanes NORMAL> or = 60 mg/dl - LOW CARDIOVASCULAR RISK <40 mg/dl - HIGH CARDIOVASCULAR RISKOhio State East HospitalComment on above:Performed By: #### LIPID, CMP #### [facility] [address] [place] [address] Dr. Pilo Jaime CALC NORMALSEE BELOWNoAultman HospitalComment on above:Result Comment: <100 mg/dl OPTIMAL 100 - 129 mg/dl NEAR OR ABOVE OPTIMAL 130 - 159 mg/dl BORDERLINE HIGH 160 - 189 mg/dl HIGH >190 mg/dl VERY HIGH Performed By: #### LIPID, CMP #### [facility] [address] [address] [address] Pilo JansenTriglyceride [Mass/Vol]111 mg/dLNormal<=150The [facility] Comment on above:Performed By: #### LIPID, CMP #### [facility] [address] [place] [address] Dr. Yilan ChangVLDL CALC22.2 mg/dLNormalThe [facility] CenterComment on above: Performed By: #### LIPID, CMP #### [facility] [address] [place] [address] Dr. Pilo Almanzar 14(COMP METB)on 53-13-2232Lnrdtye [Mass/Vol]3.9 g/dLNormal 3.4-5.0The [facility] CenterComment on above:Performed By: #### LIPID, CMP #### [facility] [address] [place] [address] Dr. Pilo JansenAlbumin/Globulin [Mass ratio]1.1 {ratio}NormalThe [facility] CenterComment on above:Performed By: #### LIPID, CMP #### [facility] [address] [place] [address] Dr. Pilo Medeiros [Catalytic activity/Vol]81 U/NJwnqjr55-751Jmr [facility] CenterComment on above:Performed By: #### LIPID, CMP #### [facility] [address] [place] [address] Dr. Pilo Thompson [Catalytic activity/Vol]28 [id number] [facility] CenterComment on above:Performed By: #### LIPID, CMP #### [facility] [address] [place] [address] Dr. Pilo Mercado gap [Moles/Vol]13.6 mmol/LNormalThe [facility] Comment on above:Performed By: #### LIPID, CMP #### [facility] [address] [place] [address] Dr. Pilo Clark [Catalytic activity/Vol]23 [id number] [facility] CenterComment on above:Performed By: #### LIPID, CMP #### [facility] [address] [place] [address] Dr. Pilo JansenBilirubin [Mass/Vol]0.8 mg/dLNormal0.2-1.0The [facility] Comment on above:Performed By: #### LIPID, CMP #### [facility] [facility] [address] [place] [address] Dr. Pilo JansenCalcium [Mass/Vol]9.3 mg/dLNormal8.5-10.1The [facility] Comment on above:Performed By: #### LIPID, CMP #### [facility] [address] [address] [address] Pilo JansenChloride [Moles/Vol]101 mmol/VQlchet53-387Xuz [facility] Comment on above:Performed By: #### LIPID, CMP #### [facility] [address] [address] [address] Pilo JansenCO2 [Moles/Vol]29.7 mmol/KXfxiwg46.0-32.0The [facility] Comment on above:Performed By: #### LIPID, CMP #### [facility] [address] [place] [address] Dr. Pilo JansenCreatinine [Mass/Vol]0.86 mg/dLNormal0.70-1.30The [facility] on above:Performed By: #### LIPID, CMP #### [facility] [address] [place] [address] Dr. Pilo MayfieldGFR-AF JAMAICAN>60Normal>=60The [facility] Center[facility] on above:Performed By: #### LIPID, CMP #### [facility] [address] [place] [address] Dr. Pilo MayfieldGFR-NON AF JAMAICAN>60Normal>=60The [facility] on above:Performed By: #### LIPID, CMP #### [facility] [address] [place] [address] Dr. Pilo JansenGlobulin (S) [Mass/Vol]3.7 g/dLNormalThe [facility] CenterComment on above:Performed By: #### LIPID, CMP #### [facility] [address] [address] [address] Plio JansenGlucose [Mass/Vol]186 mg/dLCritically jcfp00-509Nvg [facility] CenterComment on above:Performed By: #### LIPID, CMP #### [facility] [address] [place] [address] Dr. Pilo JansenPotassium [Moles/Vol]4.3 mmol/LNormal3.5-5.1The [facility] Comment on above:Performed By: #### LIPID, CMP #### [facility] [address] [address] [address] Pilo JansenProtein [Mass/Vol]7.6 g/dLNormal6.4-8.2The [facility] Comment on above:Performed By: #### LIPID, CMP #### [facility] [address] [address] [address] Pilo JansenSodium [Moles/Vol]140 mmol/QXbivzv841-008Pgw [facility] Comment on above:Performed By: #### LIPID, CMP #### [facility] [address] [address] [address] Pilo JansenUrea nitrogen [Mass/Vol]10.0 mg/dLNormal7.0-18.0The [facility] Center[facility] on above:Performed By: #### LIPID, CMP #### [facility] [address] [address] [address] Pilo Souza nitrogen/Creatinine [Mass ratio]11.6 mg/mgNormalThe [facility] CenterComment on above:Performed By: #### LIPID, CMP #### [facility] [address] [address] [address] Pilo Jansen Vital Signs Date TimeVital SignValuePerforming [id number] 10:20-0500Body pomgbn408.26 cmJessica Karma DO Work Phone: [facility]11-12-2025 10:20-0500 Body mass index (BMI) [Ratio]35.4 kg/g2Nuukwec Karma DO Work Phone: [facility]11-12-2025 10:20-0500 Body otvjap269.86 kgJessoc Karma DO Work Phone: [facility]11-12-2025 10:20-0500 Diastolic blood vxzioqff71 mm[Hg]Ivania Karma DO Work Phone: 1(419)[address] [place], [place] 2498611-12-2025 10:20-0500 Heart sbzz041 /minJessica Karma DO Work Phone: 1(419)[address] [place], [place] 2498611-12-2025 10:20-0500 Respiratory rate16 /minJessica Karma DO Work Phone: 1(419)[address] [place], [place] 2498611-12-2025 10:20-0500 SaO2% (BldA) [Mass fraction]100 %Ivania Karma DO Work Phone: 1(419)[address] [place], [place] 2498611-12-2025 10:20-0500 Systolic blood ymklzaym152 mm[Hg]Ivania Karma DO Work Phone: 1(419)[address] [place], [place] 2498610-29-2025 09:43-0400 Body objnnq592.26 cmJessica Karma DO Work Phone: 1(419)[address] [place], [place] 2498610-29-2025 09:43-0400 Body mass index (BMI) [Ratio]35.6 kg/r8Zlyfqsd Karma DO Work Phone: 1(419)[address] [place], [place] 2498610-29-2025 09:43-0400 Body elmxqpurzjg79.9 [degF]Ivania Karma DO Work Phone: 1(419)[address] [place], [place] 2498610-29-2025 09:43-0400 Body zrvxeh492.31 kgJessica Karma DO Work Phone: 1(419)[address] [place], [place] 2498610-29-2025 09:43-0400 Diastolic blood sxqepfrr23 mm[Hg]Ivania Karma DO Work Phone: 1(419)[address] [place], [place] 2498610-29-2025 09:43-0400 Heart mwfm827 /minJessica Karma DO Work Phone: 1(419)[address] [place], [place] 2498610-29-2025 09:43-0400 Respiratory rate18 /minJessica Karma DO Work Phone: 1(419)[address] [place], [place] 2498610-29-2025 09:43-0400 SaO2% (BldA) [Mass fraction]97 %Ivania Karma DO Work Phone: 1(419)[address] [place], [place] 2498610-29-2025 09:43-0400 Systolic blood hopaywzp307 mm[Hg]Ivania Karma DO Work Phone: 1(419)[address] [place], [place] 2498610-13-2025 08:13-0400 Body bsqioo836.26 cmJessica Karma DO Work Phone: 1(419)[address] [place], [place] 2498610-13-2025 08:13-0400 Body mass index (BMI) [Ratio]35.7 kg/f9Mvvuqfg Karma DO Work Phone: 1(419)[address] [place], [place] 2498610-13-2025 08:13-0400 Body burjww562.76 kgJessica Karma DO Work Phone: 1(419)[address] [place], [place] 2498610-13-2025 08:13-0400 Diastolic blood tnnpnrli92 mm[Hg]Ivania Karma DO Work Phone: 1(419)[address] [place], [place] 2498610-13-2025 08:13-0400 Heart kwob018 /minJessica Karma DO Work Phone: 1(419)[address] [place], [place] 2498610-13-2025 08:13-0400 Respiratory rate20 /minJessica Karma DO Work Phone: 1(419)[address] [place], [place] 2498610-13-2025 08:13-0400 SaO2% (BldA) [Mass fraction]99 %Ivania Karma DO Work Phone: 1(419)[address] [place], [place] 2498610-13-2025 08:13-0400 Systolic blood jsvswxti294 mm[Hg]Ivania Karma DO Work Phone: 1(419)[address] [place], [place] 2498603-11-2025 14:01-0400 Body bcyevu687.3 cmMasrinath WORLEY Work Phone: [facility] CenterBcdwnzbmun98-03-0346 14:01-0400Body mass index (BMI) [Ratio]37.36 kg/j8Ceiuzaysrinath WORLEY Work Phone: [facility] CenterIaxkgzvffv60-71-3089 14:01-0400Body dvyawq224.76 kgMasrinath WORLEY Work Phone: [facility] CenterPxeexofeaq49-30-5653 08:53-0400Blood Pressure LocationMikhradha Global WeathernMySQL [facility]08-09-2024 08:53-0400 Diastolic blood yuiglmkd39 mm[Hg]Javier Kirnus [address] [place], [place] 5494308-09-2024 08:53-0400Heart rate79 /minMiConelumail Global WeathernMySQL [address] [place], [place] 5494308-09-2024 08:53-0400 Respiratory rate18 /minMiConelumail Global WeathernMySQL [address] [place], [place] 5494308-09-2024 08:53-9897CfX3% (BldA) [Mass fraction]99 %Javier Global WeathernMySQL [facility]08-09-2024 08:53-0400 Systolic blood pbeangdj241 mm[Hg]Javier Kirnus [facility]08-06-2024 08:19-0400Blood Pressure LocationLinusFitnet [facility]08-06-2024 08:19-0400Diastolic blood vqhluvac95 mm[Hg][employer] [facility]08-06-2024 08:19-0400Heart rate94 /minMetaFLO [facility]08-06-2024 08:19-0400Systolic blood daszfrbk929 mm[Hg][employer] [facility]07-26-2024 14:00-0400Hourly RoundingAlexander Marshall [address] [place], [place] 5152707-26-2024 14:00-0400 Promise to ReturnAlexander Marshall [address] [place], [place] 5380607-26-2024 13:00-0400 Hourly RoundingAlexander Marshall [address] [place], [place] 5380607-26-2024 13:00-0400 Promise to ReturnAlexander Marshall [address] [place], [place] 5380607-26-2024 12:34-0400 Diastolic blood lbzoxndd586 mm[Hg]Artemio Leroycker [address] [place], [place] 5380607-26-2024 12:34-0400 Systolic blood ljkymzwj868 mm[Hg]Artemio Leroycker [address] [place], [place] 5380607-26-2024 12:00-0400 Hourly RoundingAlexander Marshall [address] [place], [place] 5380607-26-2024 12:00-0400 Promise to ReturnAlexander Marshall [address] [place], [place] 5380607-26-2024 11:50-0400Heart oyvn585 /minAlexander Marshall [address] [place], [place] 5380607-26-2024 11:50-3832NhK6% (BldA) [Mass fraction]98 %Artemio Leroycker [address] [place], [place] 5152707-26-2024 11:45-0400Body .7 [degF]Artemio Leroycker [address] [place], [place] 5380607-26-2024 11:45-0400 Diastolic blood hsxukecr028 mm[Hg]Artemio Olivares [address] [place], [place] 5380607-26-2024 11:45-0400Mean blood pvoapcca092 mm[Hg]Artemio Olivares [address] [place], [place] 5380607-26-2024 11:45-0400 Systolic blood zywjezbg903 mm[Hg]Artemio Olivares [address] [place], [place] 5380607-26-2024 08:00-0400Blood Pressure LocationAlexanddiego Marshall [address] [place], [place] 5380607-26-2024 08:00-0400Body vilvkehwqqj98.6 [degF]Artemio Olivares [address] [place], [place] 5380607-26-2024 08:00-0400 Diastolic blood pnaccqnz24 mm[Hg]Artemio Olivares [address] [place], [place] 5380607-26-2024 08:00-0400Heart lxgo154 /minAlexanddiego Marshall [address] [place], [place] 5380607-26-2024 08:00-0400 Systolic blood ytabbqdl485 mm[Hg]Artemio Olivares [address] [place], [place] 5380607-26-2024 04:00-0400Heart rate74 /minAlexander Marshall [address] [place], [place] 5380607-26-2024 03:39-0400Heart rate75 /minAlexanddiego Marshall [address] [place], [place] 5380607-26-2024 03:39-1544HfF4% (BldA) [Mass fraction]97 %Artemio Olivares [address] [place], [place] 5380607-26-2024 03:39-0400Body cldggurgkqe00.52 [degF]Artemio Leroycker [address]07-26-2024 03:39-0400Mean blood bpvgbuct142 mm[Hg]Artemio Leroycker [address]07-25-2024 21:20-0400Body hwhsjrorbmn30.16 [degF]Artemio Olivares [address] [place], [place] 5380607-25-2024 21:18-0400Mean blood mm[Hg]Artemio Olivares [address] [place], [place] 5380607-25-2024 20:00-0400Mean blood qhcyyfsp898 mm[Hg]Artemio Olivares [address] [place], [place] 5380607-25-2024 16:57-0400Blood Pressure LocationAlexajonesdiego Marshall [address] [place], [place] 5380607-25-2024 16:57-0400Body tyldzfxphpc30.42 [degF]Artemio Olivares [address] [place], [place] 5380607-25-2024 16:00-0400Mean blood rkgdbabp753 mm[Hg]Artemio Olivares [address] [place], [place] 5380607-25-2024 16:00-0400 Respiratory rate20 /minAlexander Marshall [address] [place], [place] 5380607-25-2024 15:00-0400Mean blood ztkkgsou393 mm[Hg]Artemio Olivares [address] [place], [place] 5380607-25-2024 15:00-0400 Respiratory rate14 /minAlexander Marshall [address] [place], [place] 5152707-25-2024 14:07-0400 Respiratory rate23 /minAlexander Marshall [address] [place], [place] 5380607-25-2024 13:50-0400Body usezvrxmeby52.88 [degF]Artemio Olivares [address] [place], [place] 5380607-25-2024 13:50-0400 Respiratory rate18 /minAlexander Marshall [facility]05-15-2024 08:26-0400 Diastolic blood axzeugae73 mm[Hg]Jacinto Ramirez [facility]05-15-2024 08:26-0400Mean blood kqhbtuli300 mm[Hg]Jacinto Ramirez [facility]05-15-2024 08:26-0400 Systolic blood hqxrozph879 mm[Hg]Jacinto Ramirez [facility]05-15-2024 08:12-0400Blood Pressure LocationJacinto Ramirez [facility]05-15-2024 08:12-0400 Diastolic blood mm[Hg]Jacinto Ramirez [facility]05-15-2024 08:12-0400Heart rate94 /minJacinto Ramirez [facility]05-15-2024 08:12-3082DfP7% (BldA) [Mass fraction]98 %Jacinto Ramirez [facility]05-15-2024 08:12-0400 Systolic blood psitbzca461 mm[Hg]Jacinto Ramirez [facility]04-18-2024 12:35-0400Blood Pressure LocationBryant TAO [facility]04-18-2024 12:35-0400Body avcpgvmejlo21.16 [degF]Bryant TAO [facility]04-18-2024 12:35-0400Diastolic blood wmbwmjia06 mm[Hg]Bryant TAO [facility] [address] [place] [address]-18-2024 12:35-0400Heart rate84 /minBryant TAO [facility]04-18-2024 12:35-0400Systolic blood bqwuzcvj131 mm[Hg]Bryant TAO [facility]04-05-2024 14:25-0400Diastolic blood thdqauek76 mm[Hg]MD Nancy Grace Work Phone: 1(971)072-[address] [place], [place] 5908704-05-2024 14:25-0400 Heart rate85 /minMD Nancy Grace Work Phone: 1(813)556-[address] [place], [place] 5908704-05-2024 14:25-0400 Respiratory rate16 /minMD Nancy Grace Work Phone: 1(231)218-[address] [place], [place] 5908704-05-2024 14:25-0400 SaO2% (BldA) [Mass fraction]99 %MD Nancy Grace Work Phone: 1(152)250-[address] [place], [place] 5908704-05-2024 14:25-0400 Systolic blood bncysmhv126 mm[Hg]MD Nacny Grace Work Phone: 1(718)124-[address] [place], [place] 5908704-05-2024 13:40-0400 Inhaled oxygen flow rate8 L/minMD Nancy Grace Work Phone: 1(051)394-[address] [place], [place] 5908704-05-2024 12:40-0400 Body .26 cmMD Nancy Grace Work Phone: 1(726)320-[address] [place], [place] 5908704-05-2024 12:40-0400 Body mass index (BMI) [Ratio]34.1 kg/m2MD Nancy Grace Work Phone: 1(580)249-[address] [place], [place] 5908704-05-2024 12:40-0400 Body gskqaw809.77 kgMD Nancy Grace Work Phone: 0(858)438-[address] [place], [place] 5908704-05-2024 11:49-0400 Body qghtwhiuhrz40.8 [degF]MD Nancy Grace Work Phone: 1(050)944-[address] [place], [place] 5908703-28-2024 11:42-0400 Diastolic blood anyenvzy59 mm[Hg]Bryant TAO [facility]03-28-2024 11:42-0400 Systolic blood ezxxurau103 mm[Hg]Bryant TAO [facility]03-28-2024 11:40-0400 Diastolic blood fyvvvvhe64 mm[Hg]Bryant TAO [facility]03-28-2024 11:40-0400 Systolic blood dllxbwac422 mm[Hg]Bryant TAO [facility]03-28-2024 11:08-0400 Diastolic blood bjbimkal451 mm[Hg]Bryant TAO [facility]03-28-2024 11:08-0400 Systolic blood iacyexqe023 mm[Hg]Bryant TAO [facility]03-28-2024 10:50-0400Heart rate96 /minBryant TAO [facility]03-28-2024 10:23-0400Blood Pressure LocationBryant TAO [facility]03-28-2024 10:23-0400Heart nrwa980 /minBryant TAO [facility]03-28-2024 10:23-0400Mean blood mqtjjubv370 mm[Hg]Bryant TAO [facility]03-28-2024 10:22-0400Heart otkm693 /minBryant TAO [facility]03-28-2024 10:22-4648ShJ8% (BldA) [Mass fraction]98 %Bryant TAO [facility]03-28-2024 10:22-0400Blood Pressure LocationGreggreg COOK [facility]03-28-2024 10:22-0400Mean blood iullaoat821 mm[Hg]Bryant TAO [facility]03-28-2024 10:21-0400 Respiratory rate20 /minBryant TAO [facility]03-28-2024 10:21-0400Body zuwqjdfiziy57.7 [degF]Bryant TAO [facility]03-15-2024 11:59-0400 Diastolic blood fsbiwzwu41 mm[Hg]Troy Warrenguilherme [facility]03-15-2024 11:59-0400Mean blood vwbmbxyo216 mm[Hg]Troy Warrenguilherme [facility]03-15-2024 11:59-0400 Systolic blood mm[Hg]Troy Warrenguilherme [facility]03-15-2024 11:52-0400 Diastolic blood wcbghvus188 mm[Hg]Troy Warrenguilherme [facility]03-15-2024 11:52-0400Heart zepy692 /minNavinfani Brianaguilherme [facility]03-15-2024 11:52-8997IqJ5% (BldA) [Mass fraction]97 %Troy Warrenguilherme [facility]03-15-2024 11:52-0400 Systolic blood scmqjaaq413 mm[Hg]Troy Warrenguilherme [facility]03-07-2024 09:41-0500 Diastolic blood xjgisjgg38 mm[Hg]Bryant TAO [facility]03-07-2024 09:41-0500Heart rate84 /minBryant TAO [facility]03-07-2024 09:41-0500Mean blood conntwej972 mm[Hg]Bryant TAO [facility]03-07-2024 09:41-0500 Systolic blood fjoupmoc810 mm[Hg]Bryant TAO [facility]03-07-2024 09:41-0500Heart rate88 /minBryant TAO [facility]03-07-2024 09:41-3488VgS3% (BldA) [Mass fraction]99 %Bryant TAO [facility]03-07-2024 09:40-0500 Diastolic blood mm[Hg]Bryant TAO [facility]03-07-2024 09:40-0500Mean blood nizhkwse582 mm[Hg]Bryant TAO [facility]03-07-2024 09:40-0500 Systolic blood ugypujgk960 mm[Hg]Bryant TAO [facility]03-07-2024 09:40-0500 Respiratory rate20 /minBryant TAO [facility]02-21-2024 11:03-0500Blood Pressure LocationJENNIFER MINDI [facility]02-21-2024 11:03-0500Diastolic blood wpuozwmo94 mm[Hg]RAMANDEEP MINDI [facility]02-21-2024 11:03-0500Heart rate84 /minJENNIFER MINDI [facility]02-21-2024 11:03-0500Systolic blood ivwwzatk171 mm[Hg]RAMANDEEP PORTER [facility]02-15-2024 10:06-0500Body dguoxu731.26 cmMD Nancy Grace Work Phone: [facility]02-15-2024 10:06-0500 Body .04 kgMD Nancy Grace Work Phone: [facility]02-12-2024 06:45-0500 Body .26 cmMD Nancy Grace Work Phone: [facility]02-12-2024 06:45-0500 Body .04 kgMD Nancy Grace Work Phone: [facility]02-09-2024 13:58-0500 Diastolic blood xxlbobyi73 mm[Hg]Troy Coulter [facility]02-09-2024 13:58-0500Heart rate99 /minRyan Yfn [facility]02-09-2024 13:58-1191IrZ2% (BldA) [Mass fraction]98 %Troy Coulter [facility]02-09-2024 13:58-0500 Systolic blood mm[Hg]Troy Coulter [facility]12-11-2023 07:57-0500 Diastolic blood blggxaky36 mm[Hg]Nancy Grace [facility]12-11-2023 07:57-0500Mean blood ptcyxmvc692 mm[Hg]Nancy Grace [facility]12-11-2023 07:57-0500 Systolic blood tgegdoht878 mm[Hg]Nancy Grace [facility] Encounters Encounter DateEncounter TypeCare ProviderFacilityStart: 08-03-9112jngevukmwn Nancy GraceFacility:[facility] [place]vueStart: 07-15-8718qvlnpeumdtSspapys P COOK Facility:[place]: 04-17-2025 End: 93-73-4343clbqovzgcvMsbstbd Karma DO Work Phone: [phone]-Zjodwdrud Health Neph SandStart: 04-17-2025 End: 90-95-8870Kivqkik encounter procedureFernando Dumont MD-[facility] Work Phone: Start: 30-16-9406cslqjudhqhNHW MARINO GRACEHMANN Facility:[facility] [place]vueStart: 04-03-2025 End: 05-81-0151Yzmdrbfy ReferredClara Rivera APRN-Lab [facility] Work Phone: Start: 04-03-2025 End: 49-29-3601wwgbksaxakRgvrzwv Karma DO Work Phone: -[facility] ClydeStart: 04-03-2025 End: 49-03-8935Zszbjsy encounter procedureClara Rivera AR[employer] C[employer]ER-[facility] [place] Work Phone: Start: 29-47-2807gzgjwsymovHcbrraz P COOKFacility:EU evueStart: 74-12-2788Orn-patient / Non-visitJessica Karma DO-[facility] Work Phone: Start: 03-19-2025 End: 03-86-6485zjfneamgngObraddy P COOKFacility:EU [place]Start: 03-19-2025 End: 66-62-4465Dxxovzy encounter procedureBryant TAO [facility] Start: 03-18-2025 End: 53-63-8055bpcelqjzwiZfkdzai Karma DO Work Phone: [facility] Work Phone: Start: 03-18-2025 End: 06-21-8501Oueqcgl encounter procedureJekierra Karma DO-[facility] [place] Work Phone: Start: 03-04-2025 End: 59-03-9257lhesepkrczWUVIYD A LEHMANNFacility:FTMCStart: 01-29-2025 End: 39-53-9741lmozbwwpseEOESNJ A LEHMANNFacility:FTMCStart: 01-29-2025 End: 83-92-6800txpubiwyciPNAPRO A LEHMANNFacility:FT FM BellevueStart: 01-08-2025 End: 86-48-9317grecsvxovbBWE MARINO A LEHMANNFacility:FT FM [place]vueStart: 11-14-2024 End: 50-59-4716Nyn Drop offSHELLY A SHIRA [facility] Start: 11-14-2024 End: 16-58-9496gtgyrjuajyTFWLEZ A LEHMANNFacility:FTMCStart: 10-08-2024 ambulatorySHELLY LEHMANNFacility:FM [place]ardStart: 10-08-2024 End: 51-48-1673Ttb Drop Erin Grace [facility] Start: 10-08-2024 End: 45-96-2188krnrbqvfecNE Nancy GraceFacility:FTMCStart: 09-25-2024 End: 73-22-9933Ormnij flowsKaroline WORLEY Work Phone: noms [facility] ORTHOPAEDICSStart: 09-25-2024 End: 61-24-7651Rxasrl Cristhian WORLEY Work Phone: NOQR FB ORTHOPAEDICSStart: 09-25-2024 End: 50-45-0957Dmpaqp follow up visit related to original Oj WORLEY Work Phone: NOMS FB ORTHOPAEDICSComment on above:S/P carpal tunnel release (Primary Dx)Start: 09-25-2024 End: 11-95-4616agvkmplmetAVRCOQK J MEYERNot AvailableStart: 09-24-2024 End: 83-47-8609Tmc Drop offJENNIFER E MINDI [facility] Start: 09-24-2024 End: 99-34-2273jfeuszrmvaMtubwwl P COOKFacility:EU BellevueStart: 09-11-2024 End: 72-45-6059Zqbexe Cristhian WORLEY Work Phone: NOOF [facility] ORTHOPAEDICSStart: 09-11-2024 End: 23-60-3793Brdqfh Cristhian WORLEY Work Phone: noms FB ORTHOPAEDICSStart: 09-11-2024 End: 18-16-1942Mqovbj follow up visit related to original Oj WORLEY Work Phone: NOXM FB ORTHOPAEDICSComment on above:S/P carpal tunnel release (Primary Dx)Start: 09-11-2024 End: 50-02-6073fwnokubbawBLQOJYG J MEYERNot AvailableStart: 09-03-2024 End: 40-19-5845dtzfscpdfwFATQLTTJ E PERRYFacility:EU BellevueStart: 08-28-2024 End: 81-47-8560Dkwmrsuda encounterJrMalgorzata Dillon DO Work Phone: noms SWS ORTHOStart: 08-22-2024 End: 90-38-8092Jub Drop Erin Grace [facility] Start: 08-22-2024 End: 41-75-3591idazmwiyjlTyzudm E. RossFacility:FT FM BellevueStart: 08-21-2024 End: 15-52-5325ukuwiptssaMjeoqt X OrzechFacility:EU [place]kyStart: 08-17-2024 End: 57-50-6584Oio Drop offSbrian Grace [facility] Start: 08-17-2024 End: 25-49-5022sdlocddpsmTY Nancy GraceFacility:FT FM BellevueStart: 08-14-2024 End: 74-50-9424ezsoajfqebCQWZNYJ J MEYERUniversity Hospitals [facility] HospitalStart: 89-68-3428Twkswygcj for other preprocedural examinationMATTJUSTIN SPARKSBlanchard Valley Health System [facility] Hospitaltart: 08-14-2024 End: 64-61-3504Ovwoxrq encounter procedureMasrinath WORLEY Work Phone: NOIF FB ORTHOPAEDICSComment on above:Preop examination Start: 08-14-2024 End: 48-15-8614Esgltpzwotquz examination doneMasrinath WORLEY Work Phone: [facility] HealthcareStart: 08-14-2024 End: 25-73-0333Hgtmxn flowsheetMasrinath WORLEY Work Phone: [facility]THOPAEDICSStart: 08-14-2024 End: 54-59-1935Fuxpvy flowsheetChloe WORLEY Work Phone: [facility] ORTHOPAEDICSStart: 08-14-2024 End: 79-65-4112Fazjnexb Result EncounterChloe WORLEY Work Phone: NOJ[facility] External Department UnsolicitedStart: 08-14-2024 End: 54-97-1115vagfqnxbquIWANMBZ J MEYERNot AvailableStart: 08-09-2024 End: 11-95-5965Dtkska OnlyChloe WORLEY Work Phone: [phone]-UUJB ATLASComment on above:Encounter for other preprocedural examinationStart: 08-09-2024 End: 15-40-1787Widlscj encounter statusMasrniath WORLEY Work Phone: [facility] SystemStart: 07-24-2024 End: 24-84-1258iozdrvaehiGctixo X OrzechFacility:EU SanduskyStart: 07-24-2024 End: 39-79-2186Ahicgdi encounter procedureAurora X Orzech [facility] [place] Start: 07-18-2024 End: 21-92-9002Fxgamy flowsheetJr. Lauren Dillon DO Work Phone: NOHT SWS ORTHOStart: 07-18-2024 End: 66-34-3551Marcaq flowsheetJr. Lauren Dillon DO Work Phone: noms SWS ORTHOStart: 07-18-2024 End: 40-97-9739Cyiefy outpatient visit 25 minutesJr. Lauren Dillon DO Work Phone: noms SWS ORTHOComment on above:Carpal tunnel syndrome of right wrist (Primary Dx); Pain of right handStart: 07-18-2024 End: 76-03-2487lkovuilmumFUMalgorzata, LAUREN DILLONNot AvailableStart: 07-16-2024 End: 34-86-9656Qwp Drop offSbrian Grace [facility] Start: 07-16-2024 End: 89-70-9849ctqathcmhfAlwnvn E. RossFacility:FT FM BellevueStart: 07-09-2024 End: 51-42-2484Jdd Drop offSbrian Grace [facility] Start: 07-09-2024 End: 45-81-5148sufffvymzcLlmfle E. RossFacility:FTMCStart: 05-22-2024 End: 37-09-2193Uksfba flowsheetChristopher Shyam DO Work Phone: noms NE NEUROStart: 05-22-2024 End: 40-71-1687Pbemjo flowsheetChristopher Shyam DO Work Phone: noms NE NEUROStart: 05-22-2024 End: 91-67-7157Qkympzf encounter procedureChristopher Shyam DO Work Phone: noms NE NEUROComment on above:Carpal tunnel syndrome on both sides (Primary Dx); PolyneuropathyStart: 05-22-2024 End: 74-70-8226korwyakbkiZKQVWZPXWQX HASSETTNot AvailableStart: 05-18-2024 End: 45-71-8132yieaqesghuSBF MARINO ERICANNFacility:FT FM BellevueStart: 02-22-2024 End: 30-35-7248ibckmqmpsyPsrbp AkkinaFacility:FTMCStart: 02-22-2024 End: 06-88-1018Mwccpzs encounter procedureSunil Berenicea [facility] Start: 01-30-2024 End: 42-25-9767Zyv Drop Erin Grace [facility] Start: 01-30-2024 End: 48-61-4860ilydtlztlmJfpnje E. RossFacility:FT FM BellevueStart: 01-13-2024 End: 37-40-2995awlzzzkpzqTXWT NONEFacility:FTMCStart: 01-13-2024 End: 26-71-8157Arwzshh encounter procedureMiletha Goins [facility] Start: 01-11-2024 End: 00-22-9962Ttf Drop offSbrian Grace [facility] Start: 01-11-2024 End: 26-46-0192lvzniliigzEbybye E. RossFacility:FTMCStart: 01-10-2024 End: 47-82-0180ftnpetisecDkjrbmm P COOKFacility:EU [place]kyStart: 01-10-2024 End: 64-79-6220Fclsypv encounter procedureLinusgreg Jaspreet TOA [facility] [place] Start: 01-05-2024 End: 13-18-4765vloiclukeoJD Nancy GraceFacility:FT BellevueStart: 01-02-2024 End: 87-68-0615wepdfxohofWoxyhb E. RossFacility:CD:[id number]: 12-29-2023 End: 23-97-5648Sovrlhfsjb and management of inpatientSunil AkkinaFacility:[facility] [place] Start: 90-39-7043Jqunzwbmd department patient Saadia NicoleMalgorzata CartagenaFacility:[facility] [place] Start: 12-29-2023 End: 47-87-0233Kwxkvfcbnl and management of inpatientAlexasalena Leroycker [facility] Start: 12-27-2023 End: 09-69-6362Kqu Drop Erin Grace [facility] Start: 12-27-2023 End: 51-27-6824bmpbutzrqwNuuhgm E. RossFacility:FT FM BellevueStart: 12-22-2023 End: 24-21-5244Kxr Drop offSHELLY Luke KEARNS [facility] Start: 12-22-2023 End: 59-77-3951haggtflhsyQOFIXA A LEHMANNFacility:FTMCStart: 11-28-2023 End: 83-89-6136pxljsegkjkDbyejkz P COOKFacility:FTMCStart: 11-28-2023 End: 72-80-2984Fdjvttp encounter procedureGregory P COOK [facility] Start: 10-19-2023 End: 60-64-9819awgsicykbxUgknvn A SteinFacility:FTMCStart: 10-19-2023 End: 08-57-0207Gesrxax encounter procedureThomas A Ramirez [facility] Start: 09-22-2023 End: 39-32-9086tmrqfajiffBjujwok P COOKFacility:EU [place]kyStart: 09-22-2023 End: 37-65-8873Zinswst encounter procedureGregory P EMMY [facility] [place] Start: 09-09-2023 End: 09-57-9626Kzyhszabc to same day surgery [facility] Nancy Grace Work Phone: [facility] HealthStart: 09-09-2023 End: 10-89-0371vetgejzjusUR Samuel E Ross Work Phone: [facility] Work Phone: Start: 09-09-2023 End: 83-66-1339qeiquswdosZhcrvyn P COOKFacility:CD:[id number]: 09-01-2023 End: 91-54-7224Jwxyroaxp to same day surgery centerGregory P COOK [facility] Start: 09-01-2023 End: 25-70-5348cuajkutfwxThseeqn P COOKFacility:FTMCStart: 08-19-2023 End: 45-90-6502dmcloanqasLWPY NONEFacility:FTMCStart: 08-19-2023 End: 03-12-3838Unkfxmt encounter procedureTroy Coulter [facility] Start: 08-15-2023 End: 94-54-2090Wmt Drop offSbrian Grace [facility] Start: 08-15-2023 End: 46-10-5084lmqmukmwhpOrtkze E. RossFacility:FTMCStart: 08-11-2023 End: 15-74-6447Loxopsd encounter procedureLinusgreg TAO [facility] Start: 08-05-2023 End: 54-41-1919Dqfzkqc encounter procedureTroy Coulter [facility] Start: 08-02-2023 End: 92-78-9422Lyqfstq encounter procedureSbrian Grace [facility] Start: 07-27-2023 End: 04-84-3445Lsevdmw encounter procedureRAMANDEEP JUNIORRY [facility] [place] Start: 07-21-2023 End: 42-79-1296udkstexflaQG Samuel E Ross Work Phone: [facility] Work Phone: Start: 07-21-2023 End: 44-25-3911Iatiwvo encounter Cody Grace Work Phone: [facility] [place] Work Phone: start: 07-18-2023 End: 29-07-4678iuwtaccmahHQ Samuel E Ross Work Phone: [facility] Work Phone: Start: 07-18-2023 End: 79-88-2123Lfgpwet encounter procedureMD Nancy Grace Work Phone: [facility] [place] Work Phone: Start: 07-15-2023 End: 73-41-9804Nbjmqfx encounter Hortencia Coulter [facility] Start: 06-28-2023 End: 15-49-3476Fas Drop offSbrian Grace [facility] Start: 06-23-2023 End: 95-93-4733Axwgbze encounter procedureManolo ALLEN [facility] start: 06-22-2023 End: 34-30-1625Gtazvoj encounter procedureJENNIFER E MINDI [facility] start: 06-21-2023 End: 63-57-4515Roiluxi encounter procedureJENNIFER E MINDI [facility] start: 06-13-2023 End: 95-49-7205Ydh Drop offSbrian Grace [facility] Start: 05-27-2023 End: 31-31-8898Eib Drop offChristy Mulligan [facility] Start: 05-26-2023 End: 37-36-0604Rii Drop offSbrian Grace [facility] Start: 05-18-2023 End: 28-31-7512Ssu-admission assessmentSbrian Grace [facility] Start: 05-16-2023 End: 37-25-1125Mcs Drop offSbrian Grace [facility] Start: 04-04-2023 End: 39-60-5278Ruj Drop offJodi L Ese [facility] Start: 04-04-2023 End: 10-20-6902Ykq Drop offJodi L Ese [facility] Start: 01-20-2023 End: 88-65-8689Mdj Drop offSbrian Grace [facility] Start: 07-13-2022 End: 30-06-9978limycaaguvPG TYRESE MCGRATHFacility:H1 Procedures DateProcedureProcedure DetailPerforming ClinicianStart: 66-49-6836Bqght culture Ivania Vale DO Work Phone: Start: 09-65-3858Xnwnszpnmfigf of median nerveSMICHAEL KEARNS Start: 69-51-6573Ziphcqbjyyxrn of median nerveSbrian Grace Start: 79-45-5649Jcdyp metabolic panel calcium total Chloe WORLEY Work Phone: Start: 05-22-2024 End: 91-58-1289Lbwdlv emg ea extremty w/paraspinl area completeChristopher Shyam DO Work Phone: Start: 79-13-5220TS (TRUS) Prostate Biopsy w/Ultrasound (Not Applicable)MD Nancy Grace Work Phone: Start: 49-06-4178RA prostate wo/w conMD Nancy Grace Work Phone: Start: 11-39-6831GYJ screeningDR TYRESE MCGRATHComment on above:Performed By: #### PSAD #### [facility] [address] [place] [address] Dr. Pilo RutherfordNancy Grace Comment on above:rightArthroscopyBryant [...] arthrodesisGreggreg TAO Plan of Treatment DateCare ActivityDetailAuthorStart: 40-65-1008Fzitp cultureAultman Alliance Community Hospitaltart: 61-32-2022Zhhkyhjd identified in Urine by CultureUrine [facility] Toledotart: 71-50-1479Mbrqoib referral [facility] Work Phone: Start: 09-25-2024 End: 54-68-0598Xlmllyh encounter procedureNOMS FB ORTHOPAEDICSComment on above: S/P carpal tunnel release (Primary Dx)Start: 09-11-2024 End: 12-64-3560Onzdqlf encounter procedureNOMS FB ORTHOPAEDICSComment on above: S/P carpal tunnel release (Primary Dx)Start: 08-14-2024 End: 80-58-5485Pncdisu encounter procedureNOMS FB ORTHOPAEDICSComment on above: Preop examinationStart: 08-09-2024 End: 89-11-8361Bzdwi metabolic 1998 panel - Serum or PlasmaBasic metabolic panel Lab Routine Preop examination Expected: 08/09/2024 (Approximate), Expires: 11/2025[facility] Work Phone: Comment on above:Expected: 08/09/2024 (Approximate), Expires: 08/09/2025Start: 08-09-2024 End: 29-30-1567Ecinz metabolic 2000 panel - Serum or PlasmaBasic Metabolic Panel Lab Routine Encounter for other preprocedural examination Expected: 08/09/2024, Expires: 08/09/2025[facility] Work Phone: Comment on above:Expected: 08/09/2024, Expires: 08/09/2025Start: 07-18-2024 End: 82-22-1344Bighzff encounter stwraybnm56/12/2025 8:30 AM EST Office Visit [facility] [address] [place] [address] Jr. Lauren Dillon, DO [address] [place] [address] ArrivedNOMS SHEPHERD ORTHOComment on above: ArrivedStart: 05-22-2024 End: 42-10-3462Jbijclr encounter jzxksvvja05/17/2024 8:30 AM EST Procedure Visit [facility] [address] [place] [id number] Carlos Howe DO [address] [place] [address] ArrivedNOMS NE NEUROComment on above:ArrivedStart: 11-90-6809Gjlcjlnov for malignant neoplasm of colonNOMS HealthcareStart: 97-95-7080Trsimusjk vaccinationInfluenza VaccineSelect Specialty Hospital - Durhamtart: 09-09-2023 End: 16-52-4903SzrcotpmbAultman Alliance Community Hospitaltart: 21-44-8455Yciwpkheyidt Vaccine: 65+ Years (2 of 2 - PPSV23 or PCV20)Pneumococcal Vaccine: 65+ Years (2 of 2 - PPSV23 or PCV20)[facility] HealthcareStart: 20-12-3453Dpdyoriyuotf Vaccine: 65+ Years (2 of 2 - PPSV23)Pneumococcal Vaccine: 65+ Years (2 of 2 - PPSV23)[facility] HealthcareStart: 47-39-2775Ksng Risk ScreeningFall Risk ScreeningSelect Specialty Hospital - Durhamtart: 19-66-3421Insstpmlavqiug of varicella zoster vaccineZoster (Shingles) Vaccine (1 of 2)[facility] SystemStart: 73-95-2161ZNdO,Tdap and Td Vaccines (1 - Tdap)DTaP,Tdap and Td Vaccines (1 - Tdap)[facility] SystemStart: 81-97-2154Ubuox BMI ScreeningAdult BMI ScreeningSouthwest General Health Center SystemStart: 71-47-1022Urcozrfcgb ScreeningDepression ScreeningSouthwest General Health Center SystemStart: 28-11-1156Huezljx ScreeningTobacco ScreeningThe University of [facility] Start: 92-95-7217Lfifwgvng for malignant neoplasm of colonNOMS Healthcare Comprehensive metabolic 1999 panel - Serum or [facility] FoundationPatient referralGrant Hospital Work Phone: Renal function 1999 panel - Serum or [facility] FoundationUrine cultureCleveland Clinic FoundationUS Kidney - bilateralKaiser Permanente Medical Center Immunizations Immunization DateImmunizationNotesCare PgpbvzsdIvlcipak19-32-8767djfpmohtg virus vaccine, unspecified formulationSbrian Grace 818-8125Lpsqyk-QchowSamaritan North Health Center 44-55-5430IBYU-CoV-2 mRNA (tozinameran 5y-11y) vaccineSbrian Grace 717-8704Bmbqcw-EdipjSamaritan North Health Center Comment on above:Result Comment: zqepwf76-10-4104jpigwyadd virus vaccine, unspecified formulationSbrian Grace 612-7121Pmdfto-VrryySamaritan North Health Center 48-55-9847zrlordrzg virus vaccine, unspecified formulationSbrian Grace 000-2508Zlqbus-GpyfbKindred Hospital Lima10-31-2022 SARS-CoV-2 (COVID-19) mRNAMUL.ORD!b92164Zyehnc Ruiz 436-4892Zgajfs-EmkwlKindred Hospital Lima09-26-2021 influenza virus vaccine, unspecified formulationSbrian Grace 876-7700Ylappq-ZxjuvKindred Hospital Lima09-26-2021 SARS-CoV-2 (COVID-19) mRNA BNT-162b2 vaJani Grace 813-8764Irpbnc-CcxaeKindred Hospital LimaComment on above: Result Comment: 2023-01-13: ACD8016-20-1456WKGY-BeY-8 (COVID-19) mRNA BNT-162b2 vaxSbrian Grace 309-6183Nszvgw-MmknaKindred Hospital Lima02-12-2021 SARS-CoV-2 (COVID-19) mRNA BNT-162b2 Blaynebrian Grace 988-9825Mgsign-DcnayKindred Hospital Lima10-04-2020 influenza virus vaccine, unspecified formulationSnicolahalima Grace 177-7839Ewjfcg-OlniuKindred Hospital Lima10-04-2020 pneumococcal conjugate vaccine, 13 valMedhat Grace 247-5294Wlzqyv-AdatqKindred Hospital LimaNEGATED: Highlighted row has not occurred!47-93-8989baqpxobig virus vaccine, unspecified formulationChristy Mulligan 621-0022Cnmopo-OkirkMercer County Community Hospitalue Payers DatePayer CategoryPayerPolicy [id number]-ksk [id number] [id number] Health Insurance [id number] 2018Medicare [id number] 2018Medicare HMOMEDICAL MUTUAL MEDICARE [id number] 1960Medicare [id number] 2.0.1.306525.3.57[id number] 2.0.1.481176.3.579.2.69123-92-5930Zckutri11490487 2.0.1.294435.3.579.2.34507-52-8843Upvhfgy36261105 2.16.840.1.353980.3.579.2.54841-78-2835Wyfmszl36786768 2.16.840.1.182352.3.579.2.36430-68-1250Nftujay44491282 2.16.840.1.717395.3.579.2.52076-47-8663Cdfupon55462467 2.16.840.1.192556.3.579.2.80997-52-8495Hkxzlkr89422947 2.16.840.1.468375.3.579.2.83647-20-0914Hukbquq53998819 2.16.840.1.209722.3.579.2.45429-18-7285Cnwjclg03279414 2.16.840.1.223538.3.579.2.06140-94-4182Ysphaka59437679 2.16.840.1.273982.3.579.2.59023-40-7158Ioliwnf62758960 2.16.840.1.345244.3.579.2.63803-20-7606Tlainqp08938570 2.16.840.1.532810.3.579.2.01934-33-2810Ujudwdv21718892 2.16.840.1.377784.3.579.2.71533-87-3508Bijpstw99697869 2.16.840.1.991679.3.579.2.13484-17-7701Tyijyox73135929 2.16.840.1.811727.3.579.2.89659-73-2548Uvtmadg98734155 2.16.840.1.050772.3.579.2.86012-36-2495Xefgiex20266805 2.16.840.1.006181.3.579.2.81375-70-3444Uszxkem09199222 2.16.840.1.072000.3.579.2.36407-26-2215Anfdqbm90475179 2.16.840.1.229033.3.579.2.35760-01-2551Jtbackr57620840 2.16.840.1.831897.3.579.2.11111-49-1759Sdjcnvo31443005 2.16.840.1.591285.3.579.2.24980-38-8389Fsybskd24381101 2.16.840.1.537503.3.579.2.41874-51-6228Awdqqbg40525003 2.16.840.1.124769.3.579.2.66519-72-9918Nugnrff08332967 2.16.840.1.003857.3.579.2.63819-99-3849Bozvbvh96652843 2.16.840.1.122439.3.579.2.66452-85-4350Cusbqbt06870958 2.16.840.1.656486.3.579.2.77969-96-7133Lqkyjmy76603797 2.16.840.1.563271.3.579.2.63267-19-2200Yrnkvsv56077981 2.16.840.1.579521.3.579.2.38909-51-2211Jssfxnw646992598 2.16.840.1.808263.3.579.2.569048-49-1110Eacfykk50112558 2.16.840.1.679679.3.579.2.05439-41-7939Ulphxjl92836709 2.16.840.1.381249.3.579.2.97882-84-2371Jzuckso78697643 2.16.840.1.263712.3.579.2.74389-17-4173Tutqxof18099264 2.16.840.1.475707.3.579.2.77159-18-6149Grdmpbj92864948 2.16.840.1.451128.3.579.2.35121-70-7120Zhgrncg23905103 2.16.840.1.494387.3.579.2.73977-17-8960Zruyfkq55286389 2.16840.1.488179.3.579.2.62568-59-8794Txurduy47478736 2.16.840.1.607182.3.579.2.76253-93-1584Ttuihyh1989175 2.16.840.1.602076.3.579.2.8502 1937Ltxudiy5869481 2.16.840.1.963371.3.579.2.307192-72-1837Cmzzztt4439577 2.16.840.1.288104.3.579.2.962926-40-3520Lclzkiq7199147 2.16.840.1.678161.3.579.2.915277-39-3308Twhscug7590574 2.16.840.1.378364.3.579.2.193323-96-7086Kvnhqje47126073 2.16.840.1.810743.3.579.2.56134-75-9344Szyqxru99451883 2.16.840.1.343099.3.579.2.32698-70-0524Uisvtcp51500019 2.16.840.1.934612.3.579.2.42140-60-6110Fxcxbht38082027 2.16.840.1.281477.3.579.2.48327-56-6809Lxxkihy35345663 2.16.840.1.945876.3.579.2.17108-58-9498Sskbsyt98793965 2.16.840.1.420073.3.579.2.89567-02-8379Nusciox77647001 2.16.840.1.388839.3.579.2.04664-31-6913Khqwmye73993998 2.16.840.1.573621.3.579.2.31939-46-8478Ljaqagb65794017 2.16.840.1.924256.3.579.2.82365-77-9330Xuqnncf56141113 2.16.840.1.146659.3.579.2.57477-00-7067Kwfrtgn68239944 2.16.840.1.046284.3.579.2.60891-91-0303Okajimc41970872 2.16.840.1.227022.3.579.2.97859-46-8551Wsvwcyj54757196 2.16.840.1.988667.3.579.2.10615-70-7971Frmqifu80294778 2.16.840.1.363372.3.579.2.97143-56-6581Xdaqtog21978991 2.16.840.1.992612.3.579.2.21986-39-0262Tpqjirp05277959 2.16.840.1.380460.3.579.2.17146-01-6735Gqurloo11749860 2.16.840.1.388677.3.579.2.18139-61-5549Yrgvatu73895148 2.16.840.1.242154.3.579.2.72006-09-9233Kqsquaa09707392 2.16.840.1.999031.3.579.2.05926-83-1779Mosntes94535550 2.16.840.1.526255.3.579.2.31272-85-5387Uttzhop88062957 2.16.840.1.248818.3.579.2.73033-82-2603Ukkrhyb73556612 2.16.840.1.242432.3.579.2.59160-84-3229Ahuungm65876795 2.16.840.1.555476.3.579.2.19386-53-8358Tngkygo90600746 2.16.840.1.316618.3.579.2.828Txltpsj717702781 o063z2sr-82p2-3cm7-0672-55v8r05o20l3Dpobtsc96111166 2.16.840.1.913952.3.579.2.531 Social History DateTypeDetailFacilityStart: 01-20-2023 End: 95-26-5607Uwqmxcd smoking statusEx-smoker (finding)[facility] BellevueComment on above:former smoker, quit 2006uses chewing tobacco former smoker. stopped at age 50.Tobacco smoking statusSmokeless tobacco user within last 30 daysSelect Medical [facility] BellevueComment on above:former smoker, quit 2006uses chewing tobaccoformer smoker. stopped at age 50.Start: 11-15-2018 End: 86-70-9689Rgl Assigned At BirthMalMercy Health West Hospitaltart: 52-64-6681Ive [facility]igned At [facility] CenterTobacco smoking status NHISTobacco smoking consumption unknownNOMS HealthcareStart: 17-88-9159Jho assigned at birthNot on fileNOMS HealthcareStart: 11-15-2018 End: 83-68-7922Gattgjs of Social functionProMedica Health SystemStart: 06-28-2012 End: 90-50-5062JzhIudf (finding)[facility] SystemHistory of tobacco use Current smokerNOMS HealthcareHistory of tobacco useCigarette SmokerNOMS HealthcareStart: 07-70-4652Uozvmfs use and exposureSmokeless tobacco non-user [facility] HealthcareStart: 08-14-2024 End: 24-06-7902Ffebwkphu beverage intakeCurrent drinker of alcohol (finding)[facility] HealthcareStart: 39-64-9582Rtisciy Comment2 BEERS/WKNOMS HealthcareSexual OrientationUniversity Hospitals Elyria Medical Center Medical Equipment Procedure CodeEquipment CodeEquipment Original TextEquipment IdentifierDatesMisc DME Prescription, See Instructions, 100 strip(s), 3, One touch ultra 2 test strips Use to tests sugars once a day Dx E11.9, [facility], 174.5, cm, 05/26/23 9:14:00EST, Height/Length Dosing, 109.1, kg, 05/26/23 9:14:00 EST, Weight DosingStart: 24-32-0908Oefn DME Prescription, See Instructions, 100 lancet(s), 3, Soft click lancets Use to test blood sugars once a day Dx E11.9, [facility], 174.5, cm, 05/26/23 9:14:00 EST,Height/Length Dosing, 109.1, kg, 05/26/23 9:14:00 EST, Weight DosingStart: 76-33-3027Kihk DME Prescription, See Instructions, 100 strip(s), 3, One touch ultra 2 test strips Use to tests sugars once a day Dx E11.9, [facility], 174.5, cm, 05/26/23 9:14:00 EST, Height/Length Dosing, 109.1, kg, 05/26/23 9:14:00 EST, Weight DosingStart: 54-25-0865Rvge DME Prescription, See Instructions, 100 lancet(s), 3, Soft click lancets Use to test blood sugars once a day Dx E11.9, [facility], Supply, 174.5, cm, 05/26/23 9:14:00 EST,Height/Length Dosing, 109.1, kg, 05/26/23 9:14:00 EST, Weight DosingStart: 83-76-1154Tjxh DME Prescription, See Instructions, 100 strip(s), 3, One touch ultra 2 test strips Use to tests sugars once a day Dx E11.9, [facility], Supply, 174.5, cm, 05/26/23 9:14:00EST, Height/Length Dosing, 109.1, kg, 05/26/23 9:14:00 EST, Weight DosingStart: 84-86-9140Jsxa DME Prescription, See Instructions, 100 lancet(s), 3, Soft click lancets Use to test blood sugars once a day Dx E11.9, [facility], Supply, 174.5, cm, 05/26/23 9:14:00 EST, Height/Length Dosing, 109.1, kg, 05/26/23 9:14:00 EST, Weight DosingStart: 56-93-2663Njye DME Prescription, See Instructions, 100 strip(s), 3, One touch ultra 2 test strips Use to tests sugars once a day Dx E11.9, [facility], Supply, 174.5, cm, 05/26/23 9:14:00EST, Height/Length Dosing, 109.1, kg, 05/26/23 9:14:00 EST, Weight DosingStart: [id number] DME Prescription, See Instructions, 100 lancet(s), 3, Soft click lancets Use to test blood sugars once a day Dx E11.9, [facility], Supply, 174.5, cm, 05/26/23 9:14:00 EST,Height/Length Dosing, 109.1, kg, 05/26/23 9:14:00 EST, Weight DosingStart: [id number] DME Prescription, See Instructions, 100 strip(s), 3, One touch ultra 2 test strips Use to tests sugars once a day Dx E11.9, [facility], Supply, 174.5, cm, 05/26/23 9:14:00EST, Height/Length Dosing, 109.1, kg, 05/26/23 9:14:00 EST, Weight DosingStart: 15-20-1951Rblv DME Prescription, See Instructions, 100 lancet(s), 3, Soft click lancets Use to test blood sugars once a day Dx E11.9, [facility], Supply, 174.5, cm, 05/26/23 9:14:00 EST, Height/Length Dosing, 109.1, kg, 05/26/23 9:14:00 EST, Weight DosingStart: [id number] DME Prescription, See Instructions, 100 strip(s), 3, One touch ultra 2 test strips Use to tests sugars once a day Dx E11.9, [facility], Supply, 174.5, cm, 05/26/23 9:14:00EST, Height/Length Dosing, 109.1, kg, 05/26/23 9:14:00 EST, Weight DosingStart: [id number] DME Prescription, See Instructions, 100 lancet(s), 3, Soft click lancets Use to test blood sugars once a day Dx E11.9, [facility], Supply, 174.5, cm, 05/26/23 9:14:00 EST,Height/Length Dosing, 109.1, kg, 05/26/23 9:14:00 EST, Weight DosingStart: [id number] DME Prescription, See Instructions, 100 strip(s), 3, One touch ultra 2 test strips Use to tests sugars once a day Dx E11.9, [facility], Supply, 174.5, cm, 05/26/23 9:14:00EST, Height/Length Dosing, 109.1, kg, 05/26/23 9:14:00 EST, Weight DosingStart: [id number] DME Prescription, See Instructions, 100 lancet(s), 3, Soft click lancets Use to test blood sugars once a day Dx E11.9, [facility], Supply, 174.5, cm, 05/26/23 9:14:00 EST, Height/Length Dosing, 109.1, kg, 05/26/23 9:14:00 EST, Weight DosingStart: [id number] DME Prescription, See Instructions, 100 strip(s), 3, One touch ultra 2 test strips Use to tests sugars once a day Dx E11.9, [facility], Supply, 174.5, cm, 05/26/23 9:14:00EST, Height/Length Dosing, 109.1, kg, 05/26/23 9:14:00 EST, Weight DosingStart: [id number] DME Prescription, See Instructions, 100 lancet(s), 3, Soft click lancets Use to test blood sugars once a day Dx E11.9, [facility], Supply, 174.5, cm, 05/26/23 9:14:00 EST,Height/Length Dosing, 109.1, kg, 05/26/23 9:14:00 EST, Weight DosingStart: [id number] DME Prescription, See Instructions, 100 strip(s), 3, One touch ultra 2 test strips Use to tests sugars once a day Dx E11.9, [facility], Supply, 174.5, cm, 05/26/23 9:14:00EST, Height/Length Dosing, 109.1, kg, 05/26/23 9:14:00 EST, Weight DosingStart: [id number] DME Prescription, See Instructions, 100 lancet(s), 3, Soft click lancets Use to test blood sugars once a day Dx E11.9, [facility], Supply, 174.5, cm, 05/26/23 9:14:00 EST, Height/Length Dosing, 109.1, kg, 05/26/23 9:14:00 EST, Weight DosingStart: 55-86-7448Umigbb Three Level DeformityFDAStart: 26-64-1023ZDQZSNVP RELINE SCREW FDAStart: 36-14-5756YOZMZESR RELINE SCREWFDAStart: 52-17-0521MUURHMCP RELINE SCREWFDAStart: 38-34-0781WDZPRKTJ RELINE SCREWFDAStart: 92-36-6944IMLHQIWD RELINE SCREWFDAStart: 04-84-6462RYHZVIBP RELINE SCREWFDAStart: 05-18-2017 NUVASIVE RELINE SET SCREWFDAStart: 29-55-8367MTTGFQTC RELINE SET SCREWFDAStart: 29-04-4158APDDGSZM RELINE SET SCREWFDAStart: 13-28-9008IVXFEJJR RELINE SET SCREW FDAStart: 03-63-9412UAGCGRKOWC 30CC CRUSHEDFDAStart: 88-71-9983BVKBEFDW RELINE SET SCREWFDAStart: 03-42-9247ARHHRUPH RELINE SET SCREWFDAStart: 05-18-2017 NUVASIVE RELINE SET SCREWFDAStart: 12-69-5303HQHBXHAH RELINE SET SCREWFDAStart: 64-70-4161DEFZXKTEH CAPLOX II MED/LGFDAStart: 41-10-5898TZSJZA LARGE 8.0CCFDA Start: 06-01-2010EJR PLIF INTERBODY NUVASIVEFDAStart: 47-31-3479CJV PLIF INTERBODY NUVASIVEFDAStart: 88-21-0874EOMKGBFF RELINE RODFDAStart: 05-18-2017 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FDAStart: 65-94-7032BZAADXGK RELINE SCREWFDAStart: 61-36-6495Scnjma Three Level DeformityFDAStart: 38-79-1578LUDOLZWP RELINE SCREW FDAStart: 75-94-5152NUMQXWMF RELINE SCREWFDAStart: 01-21-5004YGNMRVKK RELINE SCREWFDAStart: 01-37-1816XSWNOZZN RELINE SCREWFDAStart: 77-07-2357ROXSJIBE RELINE SCREWFDAStart: 60-80-5617QMKJJQEN RELINE SCREWFDAStart: 05-18-2017 NUVASIVE RELINE SET SCREWFDAStart: 44-36-2317VMUUOWLR RELINE SET SCREWFDAStart: 86-84-8527TVFULDGD RELINE SET SCREWFDAStart: 80-17-9131KUONTGFZ RELINE SET SCREW FDAStart: 02-78-1626BFJJDUFLRT 30CC CRUSHEDFDAStart: 78-20-2776UXDLPHQI RELINE SET SCREWFDAStart: 01-55-5485KVOXXISJ RELINE SET SCREWFDAStart: 05-18-2017 NUVASIVE RELINE SET SCREWFDAStart: 49-90-7082MLULAXUH RELINE SET SCREWFDAStart: 16-29-3854SZYZHDFLV CAPLOX II MED/LGFDAStart: 09-20-2113MIPKDB LARGE 8.0CCFDA Start: 42-93-1996SSL PLIF INTERBODY NUVASIVEFDAStart: 79-31-1665PJR PLIF INTERBODY NUVASIVEFDAStart: 55-86-8248WEEGAVVT RELINE RODFDAStart: 05-18-2017 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FDAStart: 68-84-0868RDZOWLAT RELINE SCREWFDAStart: 16-76-1572Iaqj DME Prescription, See Instructions, 100 strip(s), 3, One touch ultra 2 test strips Use to tests sugars once a day Dx E11.9, [facility], Supply, 174.5, cm, 05/26/23 9:14:00EST, Height/Length Dosing, 109.1, kg, 05/26/23 9:14:00 EST, Weight DosingStart: 01-71-9077Ohsd DME Prescription, See Instructions, 100 lancet(s), 3, Soft click lancets Use to test blood sugars once a day Dx E11.9, [facility], Supply, 174.5, cm, 05/26/23 9:14:00 EST,Height/Length Dosing, 109.1, kg, 05/26/23 9:14:00 EST, Weight DosingStart: 88-63-2935Whdt DME Prescription, See Instructions, 100 strip(s), 3, One touch ultra 2 test strips Use to tests sugars once a day Dx E11.9, [facility], Supply, 174.5, cm, 05/26/23 9:14:00EST, Height/Length Dosing, 109.1, kg, 05/26/23 9:14:00 EST, Weight DosingStart: 23-38-2777Ahoo DME Prescription, See Instructions, 100 lancet(s), 3, Soft click lancets Use to test blood sugars once a day Dx E11.9, [facility], Supply, 174.5, cm, 05/26/23 9:14:00 EST, Height/Length Dosing, 109.1, kg, 05/26/23 9:14:00 EST, Weight DosingStart: 98-44-4702Nign DME Prescription, See Instructions, 100 strip(s), 3, One touch ultra 2 test strips Use to tests sugars once a day Dx E11.9, [facility], Supply, 174.5, cm, 05/26/23 9:14:00EST, Height/Length Dosing, 109.1, kg, 05/26/23 9:14:00 EST, Weight DosingStart: 08-14-7368Uzrc DME Prescription, See Instructions, 100 lancet(s), 3, Soft click lancets Use to test blood sugars once a day Dx E11.9, [facility], Supply, 174.5, cm, 05/26/23 9:14:00 EST,Height/Length Dosing, 109.1, kg, 05/26/23 9:14:00 EST, Weight DosingStart: 54-37-6021Ylgp DME Prescription, See Instructions, 100 strip(s), 3, One touch ultra 2 test strips Use to tests sugars once a day Dx E11.9, [facility], Supply, 174.5, cm, 05/26/23 9:14:00EST, Height/Length Dosing, 109.1, kg, 05/26/23 9:14:00 EST, Weight DosingStart: 62-37-7708Ufzw DME Prescription, See Instructions, 100 lancet(s), 3, Soft click lancets Use to test blood sugars once a day Dx E11.9, [facility], Supply, 174.5, cm, 05/26/23 9:14:00 EST, Height/Length Dosing, 109.1, kg, 05/26/23 9:14:00 EST, Weight DosingStart: 10-95-6995Eiln DME Prescription, See Instructions, 100 strip(s), 3, One touch ultra 2 test strips Use to tests sugars once a day Dx E11.9, [facility], Supply, 174.5, cm, 05/26/23 9:14:00EST, Height/Length Dosing, 109.1, kg, 05/26/23 9:14:00 EST, Weight DosingStart: 82-60-3293Iysl DME Prescription, See Instructions, 100 lancet(s), 3, Soft click lancets Use to test blood sugars once a day Dx E11.9, [facility], Supply, 174.5, cm, 05/26/23 9:14:00 EST,Height/Length Dosing, 109.1, kg, 05/26/23 9:14:00 EST, Weight DosingStart: 29-65-5349Dvut DME Prescription, See Instructions, 100 strip(s), 3, One touch ultra 2 test strips Use to tests sugars once a day Dx E11.9, [facility], Supply, 174.5, cm, 05/26/23 9:14:00EST, Height/Length Dosing, 109.1, kg, 05/26/23 9:14:00 EST, Weight DosingStart: 95-89-9324Dezi DME Prescription, See Instructions, 100 lancet(s), 3, Soft click lancets Use to test blood sugars once a day Dx E11.9, [facility], Supply, 174.5, cm, 05/26/23 9:14:00 EST, Height/Length Dosing, 109.1, kg, 05/26/23 9:14:00 EST, Weight DosingStart: 01-88-9238Erqz DME Prescription, See Instructions, 100 strip(s), 3, One touch ultra 2 test strips Use to tests sugars once a day Dx E11.9, [facility], Supply, 174.5, cm, 05/26/23 9:14:00EST, Height/Length Dosing, 109.1, kg, 05/26/23 9:14:00 EST, Weight DosingStart: 60-68-5359Ridc DME Prescription, See Instructions, 100 lancet(s), 3, Soft click lancets Use to test blood sugars once a day Dx E11.9, [facility], Supply, 174.5, cm, 05/26/23 9:14:00 EST,Height/Length Dosing, 109.1, kg, 05/26/23 9:14:00 EST, Weight DosingStart: 66-85-9072Okmdte Three Level DeformityFDAStart: 21-04-3131UWDLJLGB RELINE SCREWFDAStart: 40-09-5192XBLDOGUC RELINE SCREWFDA Start: 74-61-4842KJYVHCRZ RELINE SCREWFDAStart: 84-78-4101PRITPBBI RELINE SCREW FDAStart: 11-95-0277RPXXANNT RELINE SCREWFDAStart: 77-36-5561KRDRHSVW RELINE SCREWFDAStart: 27-37-1801UJJKRKFE RELINE SET SCREWFDAStart: 36-08-1154KRBJVDHZ RELINE SET SCREWFDAStart: 80-18-7754FPGUNCLY RELINE SET SCREWFDAStart: 95-47-5336PXHGZLCV RELINE SET SCREWFDAStart: 35-24-2527FZOLIAUDQK 30CC CRUSHED FDAStart: 34-97-7244PKOBTTQC RELINE SET SCREWFDAStart: 14-22-5978JYRNFODF RELINE SET SCREWFDAStart: 25-20-1075GGVZTJDW RELINE SET SCREWFDAStart: 05-18-2017 NUVASIVE RELINE SET SCREWFDAStart: 22-31-6488BSENFHLWQ CAPLOX II MED/LGFDAStart: 41-74-4948OGABUB LARGE 8.0CCFDAStart: 17-00-8518RBJ PLIF INTERBODY NUVASIVEFDA Start: 86-04-2340MCE PLIF INTERBODY NUVASIVEFDAStart: 39-46-2908IMSXODGZ RELINE RODFDAStart: 27-06-3107XHUUSHOT RELINE SCREWFDAStart: 73-68-4593RQWTLSOZ RELINE SCREWFDAStart: 62-31-7436Zndc DME Prescription, See Instructions, 100 strip(s), 3, One touch ultra 2 test strips Use to tests sugars once a day Dx E11.9, [facility], Supply, 174.5, cm, 05/26/23 9:14:00EST, Height/Length Dosing, 109.1, kg, 05/26/23 9:14:00 EST, Weight DosingStart: 22-05-9035Hjgu DME Prescription, See Instructions, 100 lancet(s), 3, Soft click lancets Use to test blood sugars once a day Dx E11.9, [facility], Supply, 174.5, cm, 05/26/23 9:14:00 EST,Height/Length Dosing, 109.1, kg, 05/26/23 9:14:00 EST, Weight DosingStart: 50-87-9783Mryn DME Prescription, See Instructions, 100 strip(s), 3, One touch ultra 2 test strips Use to tests sugars once a day Dx E11.9, [facility], Supply, 174.5, cm, 05/26/23 9:14:00EST, Height/Length Dosing, 109.1, kg, 05/26/23 9:14:00 EST, Weight DosingStart: 57-70-3988Oyyx DME Prescription, See Instructions, 100 lancet(s), 3, Soft click lancets Use to test blood sugars once a day Dx E11.9, [facility], Supply, 174.5, cm, 05/26/23 9:14:00 EST, Height/Length Dosing, 109.1, kg, 05/26/23 9:14:00 EST, Weight DosingStart: 10-68-8204Fvub DME Prescription, See Instructions, 100 strip(s), 3, One touch ultra 2 test strips Use to tests sugars once a day Dx E11.9, [facility], Supply, 174.5, cm, 05/26/23 9:14:00EST, Height/Length Dosing, 109.1, kg, 05/26/23 9:14:00 EST, Weight DosingStart: 63-82-7930Sbna DME Prescription, See Instructions, 100 lancet(s), 3, Soft click lancets Use to test blood sugars once a day Dx E11.9, [facility], Supply, 174.5, cm, 05/26/23 9:14:00 EST,Height/Length Dosing, 109.1, kg, 05/26/23 9:14:00 EST, Weight DosingStart: 89-56-5427Dame DME Prescription, See Instructions, 100 strip(s), 3, One touch ultra 2 test strips Use to tests sugars once a day Dx E11.9, [facility], Supply, 174.5, cm, 05/26/23 9:14:00EST, Height/Length Dosing, 109.1, kg, 05/26/23 9:14:00 EST, Weight DosingStart: 41-90-5212Ttax DME Prescription, See Instructions, 100 lancet(s), 3, Soft click lancets Use to test blood sugars once a day Dx E11.9, [facility], Supply, 174.5, cm, 05/26/23 9:14:00 EST, Height/Length Dosing, 109.1, kg, 05/26/23 9:14:00 EST, Weight DosingStart: 88-71-6244Adyq DME Prescription, See Instructions, 100 strip(s), 3, One touch ultra 2 test strips Use to tests sugars once a day Dx E11.9, [facility], Supply, 174.5, cm, 05/26/23 9:14:00EST, Height/Length Dosing, 109.1, kg, 05/26/23 9:14:00 EST, Weight DosingStart: 59-25-1181Dpfv DME Prescription, See Instructions, 100 lancet(s), 3, Soft click lancets Use to test blood sugars once a day Dx E11.9, [facility], Supply, 174.5, cm, 05/26/23 9:14:00 EST,Height/Length Dosing, 109.1, kg, 05/26/23 9:14:00 EST, Weight DosingStart: 12-25-3396Pbpf DME Prescription, See Instructions, 100 strip(s), 3, One touch ultra 2 test strips Use to tests sugars once a day Dx E11.9, [facility], Supply, 174.5, cm, 05/26/23 9:14:00EST, Height/Length Dosing, 109.1, kg, 05/26/23 9:14:00 EST, Weight DosingStart: 10-78-0921Cerd DME Prescription, See Instructions, 100 lancet(s), 3, [...] BS twice daily- will bring equipment to [facility] f/u to update brandStart: 66-45-0797Xujzrq Three Level DeformityFDAStart: 16-43-5376ONNIFMWK RELINE SCREW FDAStart: 43-60-2991XIFDEGDI RELINE SCREWFDAStart: 24-91-9522FDREMMQJ RELINE SCREWFDAStart: 86-04-0658DJCVDFGV RELINE SCREWFDAStart: 12-30-9367XMEXJEOZ RELINE SCREWFDAStart: 26-47-8212CPEMARYQ RELINE SCREWFDAStart: 05-18-2017 NUVASIVE RELINE SET SCREWFDAStart: 32-61-7736PYXBCXMP RELINE SET SCREWFDAStart: 64-70-1552UEBINBRJ RELINE SET SCREWFDAStart: 44-35-2969SBSACWYZ RELINE SET SCREW FDAStart: 08-58-2181JZTUNSEWZG 30CC CRUSHEDFDAStart: 54-32-4398UFXLXADG RELINE SET SCREWFDAStart: 23-70-6991TGZTNKSD RELINE SET SCREWFDAStart: 05-18-2017 NUVASIVE RELINE SET SCREWFDAStart: 47-88-0010DOIQFVUU RELINE SET SCREWFDAStart: 47-18-2101JHFOWTVZQ CAPLOX II MED/LGFDAStart: 66-67-1043XCFDYX LARGE 8.0CCFDA Start: 16-77-2778VRK PLIF INTERBODY NUVASIVEFDAStart: 81-93-7189THD PLIF INTERBODY NUVASIVEFDAStart: 31-79-3260BDUKYIMQ RELINE RODFDAStart: 05-18-2017 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FDAStart: 62-73-5807CHMTIWWX RELINE SCREWFDAStart: 05-18-2017'Number 1' Glucometer and test strips testing BS twice daily- will bring equipment to [facility] f/u to update brandStart: 58-72-6177Npkrrs Three Level DeformityFDAStart: 87-65-3184DNOFULLU RELINE SCREWFDAStart: 08-52-1736JGWANKNQ RELINE SCREWFDAStart: 91-90-1439RTRARPJM RELINE SCREWFDAStart: 05-18-2017 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FDAStart: 79-39-1787VNGFRZIE RELINE SCREWFDAStart: 40-57-9196RFUZMFHZ RELINE SCREWFDAStart: 72-96-9780QNQCGNVZ RELINE SET SCREWFDA Start: 01-49-6609TGCWAXWH RELINE SET SCREWFDAStart: 79-62-0660PARWHZHN RELINE SET SCREWFDAStart: 23-59-0690DCBJFWAP RELINE SET SCREWFDAStart: 05-18-2017 CANCELLOUS 30CC CRUSHEDFDAStart: 77-06-8358CVHONJBZ RELINE SET SCREWFDAStart: 63-12-8480QOCQBGIK RELINE SET SCREWFDAStart: 75-12-7292OVNHGLIY RELINE SET SCREW FDAStart: 94-58-6715MCLGOJNM RELINE SET SCREWFDAStart: 61-39-4558XTFHNYINH CAPLOX II MED/LGFDAStart: 46-93-3180AQUCLA LARGE 8.0CCFDAStart: 96-40-0745MET PLIF INTERBODY NUVASIVEFDAStart: 84-21-6765XUC PLIF INTERBODY NUVASIVEFDAStart: 98-72-7777XOZVRPDG RELINE RODFDAStart: 92-32-4694YBINABBV RELINE SCREWFDAStart: 86-76-1993DTBQMQID RELINE SCREWFDAStart: 75-16-1603Ymkpjm Three Level Deformity FDAStart: 68-38-1756WVOGYHHH RELINE SCREWFDAStart: 25-57-6528USBVJBXW RELINE SCREWFDAStart: 40-16-6281PVPGVHTA RELINE SCREWFDAStart: 17-83-7693UCTVOAHS RELINE SCREWFDAStart: 22-57-8005HKHCKIOP RELINE SCREWFDAStart: 05-18-2017 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FDAStart: 79-41-1463AESDASCT RELINE SET SCREWFDAStart: 27-36-4475ZQJMIRRH RELINE SET SCREWFDAStart: 50-09-7372BUACMGVB RELINE SET SCREW FDAStart: 90-31-6860MKCGANYI RELINE SET SCREWFDAStart: 31-27-5033QCWHDBUWLT 30CC CRUSHEDFDAStart: 69-19-5984BLVILJKO RELINE SET SCREWFDAStart: 05-18-2017 NUVASIVE RELINE SET SCREWFDAStart: 07-76-2671HVFURQVP RELINE SET SCREWFDAStart: 66-06-8664SFZHFJBS RELINE SET SCREWFDAStart: 37-16-4380EZJREUCDZ CAPLOX II MED/LGFDAStart: 11-97-8601RQEIAA LARGE 8.0CCFDAStart: 42-46-9958KOV PLIF INTERBODY NUVASIVEFDAStart: 60-83-1482HQO PLIF INTERBODY NUVASIVEFDAStart: 41-78-9395FUEGMHGX RELINE RODFDAStart: 45-54-2463BHQQGYVO RELINE SCREWFDAStart: 06-53-6481GGFWPTFJ RELINE SCREWFDAStart: 04-58-4471Kmynll Three Level Deformity FDAStart: 94-40-3473SAJBWJHC RELINE SCREWFDAStart: 90-45-2381ZSJGJWYQ RELINE SCREWFDAStart: 99-33-7990NFMEJYWD RELINE SCREWFDAStart: 47-42-3473DNAOFRLO RELINE SCREWFDAStart: 53-15-5157BMRXIMWK RELINE SCREWFDAStart: 05-18-2017 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FDAStart: 50-29-2107PMSJLJQM RELINE SET SCREWFDAStart: 22-89-2225JUWYZGXY RELINE SET SCREWFDAStart: 64-81-9265GANBTOMT RELINE SET SCREW FDAStart: 94-83-8114TOHIIVBT RELINE SET SCREWFDAStart: 35-58-8905SBREQDXDSM 30CC CRUSHEDFDAStart: 82-88-5909UEDVXSQM RELINE SET SCREWFDAStart: 05-18-2017 NUVASIVE RELINE SET SCREWFDAStart: 88-63-5530HMFDJFTV RELINE SET SCREWFDAStart: 42-05-5839AXDENOWV RELINE SET SCREWFDAStart: 93-59-7678HKVNADEYX CAPLOX II MED/LGFDAStart: 85-07-8104SMGFIY LARGE 8.0CCFDAStart: 64-28-4866UCF PLIF INTERBODY NUVASIVEFDAStart: 92-96-4502UUX PLIF INTERBODY NUVASIVEFDAStart: 28-17-3092NMTKZBDL RELINE RODFDAStart: 27-54-6733CLEWSERA RELINE SCREWFDAStart: 06-41-2820GUMEZCRT RELINE SCREWFDAStart: 05-18-2017 Goals DatePatient GoalDesired Activity/State Functional Status TezpYrtzevjjhaGvyqqhOocytvwg29-55-7353Jsmrtaqvjb StatusN/[facility]08-06-2024Functional StatusN/[facility]07-25-2024Functional StatusN/[facility] 39-67-1246Wceauxquwe StatusUniversity [facility]06-24-2024Functional StatusN/[facility]05-15-2024Functional StatusNoUniversity [facility]04-18-2024Functional StatusN/A[facility]03-15-2024Functional StatusN/[facility]03-07-2024Function[facility] StatusOhio[facility] 50-05-3052Ufrqaxaana StatusN/A[facility]02-09-2024Functional StatusN/[facility]01-16-2024 Functional StatusN/AExec[facility] Clinical Notes 06-13-2019 to 03-19-2025 Note Date & PfmiYevxBuatwxjz05-75-1277 Hospital Discharge instructions Patient Education 03/19/2025 10:00:34 [...] treatment? Where to find more information The [employer] Cancer Society: www.cancer.org Mic[employer] Urological Association: www.auanet.org Contact a health care [...] provider. Document Revised: 11/16/2021 Document Reviewed: 11/16/2021 [employer] Patient Education 2023 [employer]. Follow Up Care 09/25/2024 10:23:11 With:EMMY REYNOLDS, Bryant Vogel, URL Address: [address] [place], [place] [address]- When: Unknown Comments:3 mos w/ PSA F&T [facility] 10-14-2025 NotePatient Education Oncology Prostate Cancer [...] Where to find more information ??? The [employer] Cancer Society: www.cancer.org ??? [employer] Urological Association: www.auanet.org Contact a health care [...] men. The prostate gland (more content not included)...[facility]10-13-2025 Evaluation note* Diagnosis Onset Date Resolution Status Admit Date BPH (benign prostatic hyperplasia) acuteOctober 2024 8:01amDiabetesacuteOctober 2024 8:01amElevated PSA measurementacuteOctober 2024 8:01amHiatal hernia with GERD without esophagitisacuteOctober 2024 8:01amHypercholesteremiaacuteOctober 2024 8:01amHypertensionacuteOctober 2024 8:01amHypomagnesemiaacuteOctober 2024 8:01amKidney diseaseacuteOctober 2024 8:01amNausea and vomiting acuteOctober 2024 8:01am [facility] Work Phone: 1(314) 632-645610-13-2025 Evaluation note* Diagnosis Onset Date Resolution Status Admit Date BPH (benign prostatic hyperplasia) acuteOctober 2024 8:01amDiabetesacuteOctober 2024 8:01amElevated PSA measurementacuteOctober 2024 8:01amHiatal hernia with GERD without esophagitisacuteOctober 2024 8:01amHypercholesteremiaacuteOctober 2024 8:01amHypertensionacuteOctober 2024 8:01amHypomagnesemiaacuteOctober 2024 8:01amKidney diseaseacuteOctober 2024 8:01amNausea and vomiting acuteOctober 2024 8:01amAcute UTIacuteOctober 2024 9:40am [facility] Work Phone: 1(729) 782-288710-13-2025 Evaluation note* Diagnosis Onset Date Resolution Status Admit Date BPH (benign prostatic hyperplasia) acuteOctober 13th, 2025 8:01amDiabetesacuteOctober 2024 8:01amElevated PSA measurementacuteOctober 2024 8:01amHiatal hernia with GERD without esophagitisacuteOctober 2024 8:01amHypercholesteremiaacuteOctober 2024 8:01amHypertensionacuteOctober 2024 8:01amHypomagnesemiaacuteOctober 2024 8:01amKidney diseaseacuteOctober 2024 8:01amNausea and vomiting acuteOctober 2024 8:01amAcute UTIacuteOctober 2024 9:40amBPH (benign prostatic hyperplasia)acuteNovember 2024 10:13amCKD (chronic kidney disease) stage 3, GFR 30-59 ml/minacuteNovdignity health [facility] 2024 10:13amHypertensive chronic kidney disease with stage 1 through stage 4 [facility] 2024 10:13amHypomagnesemiaacuteLog[facility] 2024 10:13amSecondary hyperparathyroidismacuteLogan [facility] Hospital 2024 10:13amType 2 diabetes mellitus with diabetic chronic kidney diseaseacuteAt[facility]2024 10:13am [facility] Work Phone: 1(780) 367-716008-05-2025 NotePatient Education Endocrinology Type 2 Diabetes Mellitus, [...] be managed by a specialist called an guest services coordinator. Type 2 diabetes may be treated by [...] meet with a certified diabetes care and education administrator? What diabetes medicines do I need, and when should I take them? What equipment will I need to manage my diabetes at home? How often do I need to check my blood glucose? Where can I find a support group for people with diabetes? What number can I call if I have questions? When is my next appointment? General instructions ??? Take semo-wvg-qzzoyyc and prescription medicines only as told by your health care provider. ??? Keep all follow-up visits. This is important. Where to find more information For help and guidance and for more information about diabetes, please visit: ??? [place] Diabetes Association (ADA): www.diabetes.org ??? [place] Association of Diabetes Care and Education Specialists (ADCES): www.diabeteseducator.org ??? International Diabetes Federation (IDF): www.idf (more content not included)...[facility]06-11-2025 NotePatient Education Urology Hematuria, Adult Hematuria is [...] these instructions at home: Medicines ??? Take gpsi-sqi-ceqepxs and prescription medicines only as told by [...] the blood stops without treatment. ??? Take vwfw-rtw-atrmrrj and prescription medicines only as told by your health care provider. ??? Drink enough fluid to keep your urine pale yellow. This information is not intended to replace advice given to you by your health care provider. Make sure you discuss any questions you have with your health care provider. Document Revised: 01/21/2021 Document Reviewed: 01/21/2021 [employer] Patient Education ? 2023 [employer].[facility] 10-08-2024 NotePatient Education Nutrition BMI for Adults [...] for Disease Control and Prevention: cdc.gov ??? [place] Heart Association: heart.org ??? National Heart, Lung, and Blood [place]: nhlbi.nih.gov This information is not intended to replace advice given to you by your health care provider. Make sure you discuss any questions you have with your health care provider. Document Revised: 02/10/2023 Document Reviewed: 02/03/2023 [employer] Patient Education ? 2023 [employer].[facility] 09-25-2024 History of Present illness Narrative* MEIR [...] requiring urgent evaluation. Visit was preformed using [employer] Co-bar pilot speech recognition. documented in this encounterSt. Louis VA Medical [id number] History of Present illness Narrative* MEIR Bob [...] for requiring urgent evaluation. documented in this encounterSt. Louis VA Medical [id number] Instructions* Patient Instructions* MEIR Bob - 09/11/2024 [...] for more urgent evaluation. documented in this [facility]03-25-2025 Telephone encounter Note* Telephone Encounter - Rosenda Wade - 08/28/2024 10:06 AM EDT 's office left vm. Magnesium improved they stated. They stated that the final clearance is up to . The office phone number is [phone] [facility] [id number] Miscellaneous Notes* Telephone Encounter - Rosenda Wade - 08/28/2024 10:06 AM EDT 's office left vm. Magnesium improved they stated. They stated that the final clearance is up to . The office phone number is [phone] ext [phone] documented in this [facility]03-18-2025 NotePatient Education Urology Acute Urinary Retention, Male [...] these instructions at home: Medicines ??? Take kvrq-bkq-vkhezbh and prescription medicines only as told by [...] provider. Document Revised: 02/11/2021 Document Reviewed: 02/11/2021 [employer] Patient Education ? 2023 [employer].[facility] 08-14-2024 History of Present illness Narrative* MEIR [...] @ 9:15 FREMONT- RAUL. documented in this encounterSt. Louis VA Medical [id number] History of Present illness Narrative* Jr. Lauren [...] DISCOMFORT ~5MONTHS (02/2024). DIFFICULTY TAKING PILLS. LIMITED TAX EXAMINING TECHNICIAN WITH TIGHT FIST. ADMITS N/T. GOOD ROM [...] is normal. Strength additional comments: 5/5 EQUAL TAX EXAMINING TECHNICIAN STRENGTH Neurovascular Right Right neurovascular exam is [...] for requiring urgent evaluation. documented in this encounterSt. Louis VA Medical [id number] NotePatient Education Nutrition BMI for Adults Body [...] for Disease Control and Prevention: cdc.gov ??? [place] [employer]: heart.org ??? National Heart, Lung, and Blood [place]: nhlbi.nih.gov This information is not intended to replace advice given to you by your health care provider. Make sure you discuss any questions you have with your health care provider. Document Revised: 02/10/2023 Document Reviewed: 02/03/2023 [employer] Patient Education ? 2023 [employer] 07-09-2024 NotePatient Education Cardiovascular Hypertension, Adult High [...] one 12 oz bottle (more content not included)...[facility]12-17-2024 History of Present illness Narrative* SANDRA Calix - 05/22/2024 8:30 AM EST Images from the original note were not included. Reason for Appointment: EMG Patient: Alicja Reyes : 1955 EMG Computer: [employer] Referring Physician: Marino Kearns CNP EMG: LEONELE system developer associate manager: Gee Wang RT(R) Office Location: [place] Reason for EMG: c/o numbness/tingling in fingers on left hand. Hx of left CTR & surgery to leftelbow. Hx of DM. Not on blood thinners. Comments: Procedure was explained to the patient who expressed understanding. Patient appeared to have tolerated the test well despite some discomfort due to the nature of the test. documented in this encounterSt. Louis VA Medical [id number] NotePatient Education Neurology Paresthesia Paresthesia is a [...] liquor (44 mL). General instructions ??? Take jufh-qcg-zrojzsf and prescription medicines only as told by [...] provider. Document Revised: 02/01/2022 Document Reviewed: 02/01/2022 [employer] Patient Education ? 2023 [employer] 01-30-2024 NoteNurse Consultation Note Reason for Visit [...] virus vaccine, inactivated 04/05/2022 Recorded SARS-CoV-2 (COVID-19) mRNAMUL.ORD![id number] 04/05/2022 Recorded influenza virus vaccine, inactivated 03/01/2021 Recorded SARS-CoV-2 (COVID-19) mRNA BNT-162b2 vax 03/01/2021 Recorded 2023-01-13: [id number] SARS-CoV-2 (COVID-19) mRNA BNT-162b2 vax 08/08/2020 Recorded SARS-CoV-2 (COVID-19) mRNA BNT-162b2 vax 07/18/2020 Recorded pneumococcal 13-valent vaccine 03/09/2020 Recorded influenza virus vaccine, inactivated 03/09/2020 [facility]ed[facility] NoteNurse Consultation Note Reason for Visit Here for lab draw and Dr Tao ordered PSA free and total also joni that for him. canceled the urineculture as patient had urine done at [facility] yesterday and was told it's [...] virus vaccine, inactivated 04/05/2022 Recorded SARS-CoV-2 (COVID-19) mRNAMUL.ORD![id number] 04/05/2022 Recorded influenza virus vaccine, inactivated 03/01/2021 Recorded SARS-CoV-2 (COVID-19) mRNA BNT-162b2 vax 03/01/2021 Recorded 2023-01-13: [id number] SARS-CoV-2 (COVID-19) mRNA BNT-162b2 vax 08/08/2020 Recorded SARS-CoV-2 (COVID-19) mRNA BNT-162b2 vax 07/18/2020 Recorded pneumococcal 13-valent vaccine 03/09/2020 Recorded influenza virus vaccine, inactivated 03/09/2020 [facility]ed[facility]24 Hospital Discharge instructions Patient Education 01/10/2024 08:58:30 [...] and water are not available, use hand rat breeder. 2.Clean your penis with soap and water. [...] reusable catheter in a small bathroom. Take ougt-oec-mhjapyv and prescription medicines only as told by [...] provider. Document Revised: 03/29/2022 Document Reviewed: 03/29/2022 [employer] Patient Education 2022 [employer] Follow Up Care 09/22/2023 13:04:49 With:EMMY REYNOLDS, Bryant Vogel, URL Address: [address] [place] [address]- When: Unknown Comments:6 mos [facility] [place] [id number] NotePatient Education Urology Clean Intermittent Catheterization, Male [...] and water are not available, use hand rat breeder. 2. Clean your penis with soap and [...] catheter in a small bathroom. ? Take xfoi-hbf-kqqowzn and prescription medicines onl (more content not included)...[facility]07-27-2024 NoteDischarge Summary Admission and Discharge Information Admit [...] spending 1 more fucking night in this [facility] with the terrible food and [...] made to ensure accuracy, however, inadvertently computerized clinical research analyst mistakes may be present. Significant Findings No qualifying data available. Services Consulted Consult to Nephrology - Ordered -- 12/29/23 15:09:00 EDT, Refractory hypomagnesemia, REQUESTED BY DR. GRACE, Consult and Co-manage Consult to Nephrology - Ordered -- 12/29/23 15:22:00 EDT, recurrent hypomag., renal wasting, Consult and Co-manage Consult to Social Servi (more content not included)...[facility] CenterComment on above:Result Comment: Electronically Signed By: Dacia BYRD\.br\Date and Time Signed: 12/30/23 12:31 EDT\.br\Electronically Co- Signed By: Dacia MEYER\.br\Date and Time Co-Signed: 12/30/23 12:32 EDT\.br\Electronically Co-Signed By: Artemio Olivares DO\.br\Date and Time Co-Signed: 12/31/23 07:05 [id number] NoteConsultation Note Patient: ALICJA REYES Age: 68 [...] # 360 tab(s), Refills(s) 1, [facility]acy: [facility], 174, cm, 07/26/23 10:21:00 EST, Height/Length Dosing, 104.8, kg, 07/26/23 10:21:00 EST, Weight Dosing [facility] Prescription: Mis DME Prescription, See Instructions, [...] E11.9, [facility], Supply, 174.5, cm,05/26/23 9:14:00 EST, Height/Length Dosing, 109.1, kg, 05/26/23 9:14:00... [facility] Prescription: [facility] Prescription, See Instructions, 100 strip(s), 3, One touch ultra 2 test strips Use to tests sugars once a day Dx E (more content not included)...[facility] CenterComment on above: Result Comment: Electronically Signed By: Hellen Sexton CNP\.br\Date and Time Signed: 12/29/23 18:22 EDT\.br\Electronically Co-Signed By: Ramos Euceda MD\.br\Date and Time Co-Signed: 12/30/23 16:58 [id number] Hospital Discharge instructions Patient Education 12/30/2023 12:37:57 [...] Do not drink alcohol. General instructions Take tqkx-pgj-ylaknkw and prescription medicines only as told by [...] provider. Document Revised: 10/20/2021 Document Reviewed: 10/20/2021 [employer] Patient Education 2022 [employer]. 12/30/2023 12:37:57 Hypomagnesemia Hypomagnesemia Hypomagnesemia is a [...] Do not drink alcohol. General instructions Take fxqh-tbq-yqfiajq and prescription medicines only as told by [...] provider. Document Revised: 10/20/2021 Document Reviewed: 10/20/2021 [employer] Patient Education 2022 [employer]. 12/30/2023 12:30:15 How to Take Your Blood Pressure, Bwjy-na-Ypyo How to Take Your Blood Pressure Blood [...] Follow these instructions at home: Medicines Take ohds-eqo-ttyliua and prescription medicines only as told by [...] monitor. You can buy one at a [employer] or online. When choosing one: Choose one with an arm cuff. Choose one that wraps around your upper arm. Only one finger should fit between your arm and the cuff. Do not choose one that measures your blood pressure from your wrist or finger. Where to find more information [employer]: www.heart.org Contact a doctor if: [...] provider. Document Revised: 02/04/2022 Document Reviewed: 02/04/2022 [employer] Patient Education 2022 [employer]. 12/30/2023 12:30:15 Form - Blood Pressure Record [...] provider. Document Revised: 02/04/2022 Document Reviewed: 02/04/2022 [employer] Patient Education 2022 [employer] 12/30/2023 11:53:55 Urinary Tract Infection, Adult, Czmp-jf-Dplq Urinary Tract Infection, Adult A urinary tract [...] Follow these instructions at home: Medicines Take nmso-enz-preluxk and prescription medicines only as told by [...] provider. Document Revised: 01/02/2021 Document Reviewed: 01/02/2021 [employer] Patient Education 2022 [employer]. 12/30/2023 11:53:55 Hypomagnesemia Hypomagnesemia Hypomagnesemia is a [...] Do not drink alcohol. General instructions Take veqp-dyp-frtzpsh and prescription medicines only as told by [...] Document Reviewed: 10/20/2021 Else[employer] Patient Education 2022 [employer]. Follow Up Care 12/29/2023 13:34:47 With:Ramos Euceda Address: [address] [place] [address]- Business (1) When: Unknown Comments:Call for followup appointment in [place] office With:Nancy Grace Address: [address] [place] [address]- Business (2) When:01/05/2024 07:45:00 [facility] [id number] NoteInterdisciplinary Note - PT Order received, chart reviewed. Attempted PT evaluation at 1141 on 12/30/23. Upon attempt, pt. is speaking with Dacia MILLER-BP and threatening to leave AMA. Dacia instructs PT to hold evaluation at this time. Please re-order PT evaluation if deemed necessary in the future. 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 Future Appointments Appointment Date:01/05/2024 07:45:00 AM Scheduled Provider:Nancy Grace MD Location:[facility] Appointment Type: Hospital Follow Up w/TCM Appointment Date:01/10/2024 08:15:00 AM Scheduled Provider:Bryant TAO MD Location:[facility] [place] Appointment Type:URO Office Visit Appointment Date:01/13/2024 09:00:00 AM Scheduled Provider:Javier Goins MD [facility] [place] Appoint[facility] Type:Cardiology Follow Up (FT) Appointment Date:07/09/2024 08:00:00 AM Scheduled Provider: Location:[facility] Appointment Type: Medicare Wellness Subsequent Diagnostic Tests Pending * PTH Intact 12/30/23 Future Scheduled Tests Laboratory* U Protein/Creat Ratio 07/14/23 * HgbA1c 07/14/23 * HgbA1c 07/26/23 * Microalbumin Level Urine 07/14/23 * CBC w/ Auto Diff 07/14/23 * Comprehensive Metabolic Panel 07/14/23 * Lipid Panel 07/14/23 [facility] 06-24-2024 Hospital Discharge instructions Patient [...] Care 09/27/2023 14:45:03 With:Bryant TAO Address: [address] [place], [place] [id number] Business (1) When: Unknown Comments:As we discussed, [...] are at least emptying the bladder intermittently. [facility]06-24-2024 Note [id number]-28-2023 NoteCystoscopy ? Voiding after the [...] if you have a fever over 100 degrees.[facility] 09-22-2023 Hospital Discharge instructions Patient Education 09/22/2023 [...] including vitamins, herbs, eye drops, creams, and wgyp-qea-mrqamgl medicines. Any problems you or family members [...] provider tells you to take them. Taking iclb-rku-xrgmktc medicines, vitamins, herbs, and supplements. Tests You [...] Follow these instructions at home: Medicines Take rbrr-mxi-cauggut and prescription medicines only as told by [...] provider. Document Revised: 02/03/2022 Document Reviewed: 01/02/2021 [employer] Patient Education 2022 [employer]. Follow Up Care 09/06/2023 09:35:10 With:EMMY REYNOLDS, Bryant Vogel, URL Address: [facility] [place] [address]- When: Unknown [facility] [place] [id number] NoteUrology Cystoscopy Cystoscopy is a procedure that [...] including vitamins, herbs, eye drops, creams, and bzvt-zxv-wujtnml medicines. ? Any problems you or family [...] tells you to take them. ? Taking odjj-nkb-zknecdd medicines, vitamins, herbs, and supplements. Tests You [...] these instructions at home: Medicines ? Take boii-nhl-hybewlo and prescription medicines only as told by [...] the department th (more content not included)...Anjel [facility] 08-17-2023 [id number] [facility]02-21-2024 Hospital Discharge instructions Patient Education 07/27/2023 [...] discomfort near your rectum, especially while sitting. [place]-colored urine due to small amounts of blood in your urine. A burning feeling while urinating. Blood in your stool (feces) or bleeding from your rectum. Blood in your semen. Follow these instructions at home: Medicines Take ddeb-iud-mfehmkp and prescription medicines only as told by [...] provider. Document Revised: 11/16/2021 Document Reviewed: 11/16/2021 [employer] Patient Education 2022 [employer]. 07/27/2023 11:28:00 Transrectal Ultrasound-Guided Prostate Biopsy Transrectal [...] including vitamins, herbs, eye drops, creams, and ihfs-nbg-yjfmtel medicines. Any problems you or family members [...] provider tells you to take them. Taking fnaa-zqu-panejea medicines, vitamins, herbs, and supplements. General instructions [...] provider. Document Revised: 11/16/2021 Document Reviewed: 11/16/2021 [employer] Patient Education 2022 [employer]. Follow Up Care 07/26/2023 12:46:05 With:RAMANDEEP PORTER PA-C, URL Address: [address] [address] When: Unknown [facility] [place] 01-16-2024 Hospital Discharge instructions Patient Education [...] including vitamins, herbs, eye drops, creams, and foir-svf-rurmfbd medicines. Any problems you or family members [...] provider tells you to take them. Taking yzmt-cya-filavbi medicines, vitamins, herbs, and supplements. Tests You [...] Follow these instructions at home: Medicines Take xlxl-mwj-pdeeupf and prescription medicines only as told by [...] provider. Document Revised: 02/03/2022 Document Reviewed: 01/02/2021 [employer] Patient Education 2022 [employer] 06/21/2023 14:21:23 Acute Urinary Retention, Male [...] Follow these instructions at home: Medicines Take cjlm-vry-mccsaft and prescription medicines only as told by [...] provider. Document Revised: 02/11/2021 Document Reviewed: 02/11/2021 [employer] Patient Education 2022 [employer]. Follow Up Care 06/21/2023 10:00:59 With:MINDI CHRISTAIN, RAMANDEEP Green, URL Address: [address] [place] [address]. [place] [address] [phone] When: Unknown Comments:sched cysto and prostate MRI [facility] [place] 03-01-2020 Evaluation + Plan note Future Appointments [...] St Appointment Date:08/08/2023 02:00:00 PM Scheduled Provider: Location:[facility] Appointment Type:Urology FT Appointment Date:08/08/2023 03:00:00 PM Scheduled Provider: Location:[facility] Appointment Type:Urology FT Appointment Date:08/15/2023 07:00:00 AM Scheduled Provider:Nancy Grace MD Location:[facility] Appointment Type: Open Appointment Date:08/19/2023 11:45:00 AM Scheduled Provider:Troy Coulter MD [facility] Appointment Type:Cardiology Follow Up (FT) Appointment Date:07/09/2024 08:00:00 AM Scheduled Provider: Location:[facility] Appointment Type:FM Medicare Wellness Subsequent Future Scheduled Tests Laboratory* U Protein/Creat Ratio 07/14/23 * HgbA1c 07/14/23 * HgbA1c 07/26/23 * Microalbumin Level Urine 07/14/23 * CBC w/ Auto Diff 07/14/23 * Comprehensive Metabolic Panel 07/14/23 * Lipid Panel 07/14/23 Radiology* NM Myocardial Spect Rest/Stress 1 Day 08/05/23 * Echo Transthoracic Complete 08/02/23 [facility] 01-08-2020 Evaluation + Plan note Future Appointments Appointment Date:06/09/2023 08:00:00 AM Scheduled Provider: [facility] Type:CV Echo (FT) Appointment Date:06/13/2023 08:00:00 AM Scheduled Provider:Nancy Grace MD Location:[facility] Appointment Type:FM Open Appointment Date:07/11/2023 09:00:00 AM Scheduled Provider:[facility]EN [facility] New Patient Appointment Date:07/27/2023 02:00:00 PM Scheduled [facility]: Medicare Wellness Subsequent Appointment Date:07/27/2023 02:40:00 PM Scheduled Provider:Nancy Grace MD Location:[facility] Appointment Type: Open Future Scheduled Tests Radiology* Echo Transthoracic Complete 06/09/23 [facility] Future Appointments Appointment Date:07/27/2023 02:00:00 PM Scheduled Provider: Location:[facility] Appointment Type: Medicare Wellness Subsequent Appointment Date:07/27/2023 02:40:00 PM Scheduled Provider:Nancy Grace MD Location:[facility] Appointment Type: Open [facility] + Plan note Future Appointments Appointment Date:05/16/2023 07:20:00 AM Scheduled Provider:N[facility] Grace MD [facility] App[facility] Type: Open Appointment Date:07/27/2023 02:00:00 PM Scheduled Provider: Location:[facility] Appointment Type: Medicare Wellness Subsequent Appointment Date:07/27/2023 02:40:00 PM Scheduled Provider:Nancy Grace MD Location:[facility] Appointment Type: Open [facility] + Plan note Future Appointments Appointment Date:05/16/2023 07:20:00 AM Scheduled Provider:Nancy Grace MD [facility] Appointment Type: Open Appointment Date:07/27/2023 02:00:00 PM Scheduled Provider: Location:[facility] Appointment Type: Medicare Wellness Subsequent Appointment Date:07/27/2023 02:40:00 PM Scheduled Provider:Nancy Grace MD [facility] Appointment Type: Open Diagnostic Tests Pending * [facility] Future Appointments Appointment Date:07/11/2023 09:00:00 AM Scheduled Provider:Manolo ALLEN MD [facility] Type:URO New Patient Appointment Date:07/27/2023 02:00:00 PM Scheduled Provider: Location:[facility] Appointment Type:FM Medicare Wellness Subsequent Appointment Date:07/27/2023 02:40:00 PM Scheduled Provider:Nancy Grace MD Location:[facility] Appointment Type:FM Open Diagnostic Tests Pending * Urine Culture 05/16/23 Future Scheduled Tests Radiology* Echo Transthoracic Complete 05/16/23 [facility] Future Appointments Appointment Date:05/27/2023 08:20:00 AM Scheduled Provider: Location:[facility] Appointment Type:FM Nurse Visit Appointment Date:06/09/2023 08:00:00 AM Scheduled Provider: [facility] Type:CV Echo () Appointment Date:06/13/2023 08:00:00 AM Scheduled Provider:Nancy Grace MD Location:[facility] Appointment Type: Open Appointment Date:07/11/2023 09:00:00 AM Scheduled Provider:Manolo ALLEN MD Location:[facility] Appointment Type:URO New Patient Appointment Date:07/27/2023 02:00:00 PM Scheduled Provider: Location:[facility] Appointment Type: Medicare Wellness Subsequent Appointment Date:07/27/2023 02:40:00 PM Scheduled Provider:Nancy Grace MD Location:[facility] Appointment Type:FM Open Diagnostic Tests Pending * Urine Culture 05/26/23 Future Scheduled Tests Laboratory* Basic Metabolic Panel 05/26/23 Radiology* Echo Transthoracic Complete 06/09/23 [facility] Future Appointments Appointment Date:06/13/2023 08:00:00 AM Scheduled Provider:Nancy Grace MD Location:[facility] Appointment Type:FM Open Appointment Date:06/29/2023 10:15:00 AM Scheduled Provider:Kristel Tolentino MD Location:[facility] Appointment Type:URO New Patient Appointment Date:07/25/2023 02:00:00 PM Scheduled Provider: Location:[facility] Appointment Type: Medicare Wellness Subsequent Appointment Date:07/25/2023 03:00:00 PM Scheduled Provider:Nancy Grace MD Location[facility] Future App[facility]ments Appointment Date:06/29/2023 10:15:00 AM Scheduled Provider:Kristel Tolentino MD Location:[facility] Appointment Type:URO New Patient Appointment Date:07/14/2023 10:00:00 AM Scheduled Provider:Nancy Grace MD Location:[facility] Appointment Type: Open Appointment Date:07/15/2023 02:00:00 PM Scheduled Provider:Troy Coulter MD [facility] Appointment Type:Cardiology New Patient (FT) Appointment Date:07/25/2023 02:00:00 PM Scheduled Provider: Location:[facility] Appointment Type: Medicare Wellness Subsequent Appointment Date:07/25/2023 03:00:00 PM Scheduled Provider:Nancy Grace MD Location:[facility] Future Appointments Appointment Date:06/22/2023 10:30:00 AM Scheduled Provider: Location:[facility] Appointment Type:URO Nurse Visit Appointment Date:06/28/2023 07:45:00 AM Scheduled Provider:Nancy Grace MD Location:[facility] Appointment Type: Hospital Follow Up w/TCM Appointment Date:07/14/2023 10:00:00 AM Scheduled Provider:Nancy Grace MD Location:[facility] Appointment Type: Open Appointment Date:07/15/2023 02:00:00 PM Scheduled Provider:Troy Coulter MD [facility] Appointment Type:Cardiology New Patient (FT) Appointment Date:07/25/2023 02:00:00 PM Scheduled Provider: Location:[facility] Appointment Type: Medicare Wellness Subsequent Appointment Date:07/25/2023 03:00:00 PM Scheduled Provider:Nancy Grace MD Location:[facility] Appointment Type: Open [facility] evaluation + Plan note Future Appointments Appointment Date:06/23/2023 08:00:00 AM Scheduled Provider: Location:[facility] Appointment Type:URO Nurse Visit Appointment Date:06/28/2023 07:45:00 AM Scheduled Provider:[facility]: Hospital Follow Up w/TCM Appointment Date:07/14/2023 10:00:00 AM Scheduled Provider:N[facility] Type: Open Appointment Date:07/15/2023 02:00:00 PM Scheduled Provider:Troy Coulter MD [facility] Appointment Type:Cardiology New Patient (FT) Appointment Date:07/25/2023 02:00:00 PM Scheduled Provider: Location:[facility] Appointment Type: Medicare Wellness Subsequent Appointment Date:07/25/2023 03:00:00 PM Scheduled Provider:Nancy Grace MD Location:[facility] Appointment Type: Open [facility] evaluation + Plan note Future Appointments Appointment Date:06/28/2023 07:45:00 AM Scheduled Provider:Nancy Grace MD Location:[facility] Appointment Type: Hospital Follow Up w/TCM Appointment Date:07/14/2023 10:00:00 AM Scheduled Provider:Nancy Grace MD Location:[facility] Appointment Type: Open Appointment Date:07/15/2023 02:00:00 PM Scheduled Provider:Troy Coulter MD [facility] Appointment Type:Cardiology New Patient (FT) Appointment Date:07/25/2023 02:00:00 PM Scheduled Provider: Location:[facility] Appointment Type: Medicare Wellness Subsequent Appointment Date:07/25/2023 03:00:00 PM Scheduled Provider:Nancy Grace MD Location:[facility] Appointment Type:[facility] evaluation + Plan note Future Appointments Appointment Date:07/14/2023 10:00:00 AM Scheduled Provider:Nancy Grace MD Location:[facility] Appointment Type:FM Open Appointment Date:07/15/2023 02:00:00 PM Scheduled Provider:Troy Coulter MD [facility] Appointment Type:Cardiology New Patient (FT) Appointment Date:07/25/2023 02:00:00 PM Scheduled Provider: Location:[facility] Appointment Type: Medicare Wellness Subsequent Appointment Date:07/25/2023 03:00:00 PM Scheduled Provider:Nancy Grace MD Location:[facility] Appointment Type:FM Open Appointment Date:08/08/2023 02:00:00 PM Scheduled Provider: Location:[facility] Appointment Type:Urology FT Appointment Date:08/08/2023 03:00:00 PM Scheduled Provider: Location:[facility] Future Appointments Appointment Date:07/25/2023 02:00:00 PM Scheduled Provider: Location:[facility] Appointment Type: Medicare Wellness Subsequent Appointment Date:07/25/2023 03:00:00 PM Scheduled Provider:Nancy Grace MD Location:[facility] Appointment Type: Open Appointment Date:08/02/2023 08:00:00 AM Scheduled Provider: [facility] Type:CV Echo (FT) Appointment Date:08/08/2023 02:00:00 PM Scheduled Provider: Location:[facility] Appointment Type:Urology FT Appointment Date:08/08/2023 03:00:00 PM Scheduled Provider: Location:[facility] Appointment Type:Urology FT Appointment Date:08/19/2023 11:45:00 AM Scheduled Provider:Troy Coulter MD [facility] Appointment Type:Cardiology Follow Up (FT) Future Scheduled Tests Laboratory* U Protein/Creat Ratio 07/14/23 * HgbA1c 07/14/23 * Microalbumin Level Urine 07/14/23 * CBC w/ Auto Diff 07/14/23 * Comprehensive Metabolic Panel 07/14/23 * Lipid Panel 07/14/23 Radiology* Echo Transthoracic Complete 08/02/23 [facility] Future Appointments Appointment Date:08/05/2023 08:45:00 AM Scheduled Provider: [facility] Type:NM Myocard Spect Multi Rest/Stress-Res Appointment Date:08/05/2023 09:45:00 AM Scheduled Provider: [facility] Appointment Type:NM Myocard Spect Multi Rest/Stress - R Appointment Date:08/05/2023 10:15:00 AM Scheduled Provider: [facility] Appointment Type:NM Myocard Spect Multi Rest/Stress-Str Appointment Date:08/05/2023 11:15:00 AM Scheduled Provider: [facility] Appointment Type:NM Myocar Spect Multi Rest/Stress - St Appointment Date:08/15/2023 07:00:00 AM Scheduled Provider:Nancy Grace MD Location:[facility] Appointment Type: Open Appointment Date:08/19/2023 11:45:00 AM Scheduled Provider:Troy Coulter MD [facility] Appointment Type:Cardiology Follow Up (FT) Appointment Date:07/09/2024 08:00:00 AM Scheduled Provider: Location:[facility] Appointment Type:FM Medicare Wellness Subsequent Future Scheduled Tests Laboratory* U Protein/Creat Ratio 07/14/23 * HgbA1c 07/14/23 * HgbA1c 07/26/23 * Microalbumin Level Urine 07/14/23 * CBC w/ Auto Diff 07/14/23 * Comprehensive Metabolic Panel 07/14/23 * Lipid Panel 07/14/23 Radiology* NM Myocardial Spect Rest/Stress 1 Day 08/05/23 [facility] Future Appointments Appointment Date:08/08/2023 12:30:00 PM Scheduled Provider: [facility] Appointment Type:NM Myocard Spect Multi Rest/Stress-Res Appointment Date:08/08/2023 01:30:00 PM Scheduled Provider: [facility] Appointment Type:NM Myocard Spect Multi Rest/Stress - R Appointment Date:08/08/2023 02:00:00 PM Scheduled Provider: [facility] Appointment Type:NM Myocard Spect Multi Rest/Stress-Str Appointment Date:08/08/2023 03:00:00 PM Scheduled Provider: [facility] Appointment Type:NM Myocar Spect Multi Rest/Stress - St Appointment Date:08/11/2023 09:30:00 AM Scheduled Provider: Location:[facility] Appointment Type:Surgical PAT FT Appointment Date:08/15/2023 07:00:00 AM Scheduled Provider:Nancy Grace MD Location:[facility] Appointment Type: Open Appointment Date:08/19/2023 11:45:00 AM Scheduled Provider:Troy Coulter MD Location:[facility] Appointment Type:Cardiology Follow Up (FT) Appointment Date:09/01/2023 01:30:00 PM Scheduled Provider: Location:[facility] Appointment Type:Surgery FT Appointment Date:07/09/2024 08:00:00 AM Scheduled Provider: Location:[facility] Appointment Type: Medicare Wellness Subsequent Future Scheduled Tests Laboratory* U Protein/Creat Ratio 28/24 * HgbA1c 2/8/24 * HgbA1c 220/24 * Microalbumin Level Urine 24 * CBC w/ Auto Diff 07/14/23 * Comprehensive Metabolic Panel 07/14/23 * Lipid Panel 07/14/23 [facility] Future Appointments Appointment Date:08/15/2023 07:00:00 AM Scheduled Provider:Nancy Grace MD Location:[facility] Appointment Type: Open Appointment Date:08/19/2023 11:45:00 AM Scheduled Provider:Troy Coulter MD Location:[facility] Appointment Type:Cardiology Follow Up (FT) Appointment Date:09/01/2023 01:30:00 PM Scheduled Provider: Location:[facility] Appointment Type:Surgery FT Appointment Date:07/09/2024 08:00:00 AM Scheduled Provider: Location:[facility] Appointment Type: Medicare Wellness Subsequent Future Scheduled Tests Laboratory* U Protein/Creat Ratio 28/24 * HgbA1c 28/24 * HgbA1c 220/24 * Microalbumin Level Urine 24 * CBC w/ Auto Diff 824 * Comprehensive Metabolic Panel 24 * Lipid Panel 24 [facility] note Future Appointments Appointment Date:08/19/2023 11:45:00 AM Scheduled Provider:Troy Coulter MD [facility] Appointment Type:Cardiology Follow Up (FT) Appointment Date:09/01/2023 01:30:00 PM Scheduled Provider: Location:[facility] Appointment Type:Surgery FT Appointment Date:07/09/2024 08:00:00 AM Scheduled Provider: Location:[facility] Appointment Type: Medicare Wellness Subsequent Diagnostic Tests Pending * Microalbumin Level Urine 08/15/23 * U Protein/Creat Ratio 08/15/23 Future Scheduled Tests Laboratory* U Protein/Creat Ratio 07/14/23 * HgbA1c 07/14/23 * HgbA1c 07/26/23 * Microalbumin Level Urine 07/14/23 * CBC w/ Auto Diff 07/14/23 * Comprehensive Metabolic Panel 07/14/23 * Lipid Panel 07/14/23 [facility] note Future Appointments Appointment Date:09/01/2023 01:45:00 PM Scheduled Provider: Location:[facility] Appointment Type:Surgery FT Appointment Date:10/19/2023 12:00:00 PM Scheduled Provider:Troy Coulter MD [facility] Type:Cardiology Follow Up (FT) Appointment Date:07/09/2024 08:00:00 AM Scheduled Provider: Location:[facility] Appointment Type: Medicare Wellness Subsequent Future Scheduled Tests Laboratory* U Protein/Creat Ratio 07/14/23 * HgbA1c 07/14/23 * HgbA1c 07/26/23 * Microalbumin Level Urine 07/14/23 * CBC w/ Auto Diff 07/14/23 * Comprehensive Metabolic Panel 07/14/23 * Lipid Panel 07/14/23 [facility] Future Appointments Appointment Date:10/19/2023 12:00:00 PM Scheduled Provider:Troy Coulter MD [facility] App[facility] Type:Cardiology Follow Up (FT) Appointment Date:07/09/2024 08:00:00 AM Scheduled Provider: Location:[facility] Appointment Type: Medicare Wellness Subsequent Future Scheduled Tests Laboratory* U Protein/Creat Ratio 07/14/23 * HgbA1c 2/8/24 * HgbA1c 07/26/23 * Microalbumin Level Urine 07/14/23 * CBC w/ Auto Diff 07/14/23 * Comprehensive Metabolic Panel 07/14/23 * Lipid Panel 07/14/23 [facility] Future Appointments Appointment Date:10/19/2023 12:00:00 PM Scheduled Provider:Troy Coulter MD [facility] App[facility]ment Type:Cardiology Follow Up (FT) Appointment Date:01/10/2024 08:15:00 AM Scheduled Provider:Bryant TAO MD Location:[facility] Appointment Type:URO Office Visit Appointment Date:07/09/2024 08:00:00 AM Scheduled Provider: Location:[facility] Appointment Type:FM Medicare Wellness Subsequent Diagnostic Tests Pending * PSA Free & Total 12/05/23 Future Scheduled Tests Laboratory* U Protein/Creat Ratio 07/14/23 * HgbA1c 07/14/23 * HgbA1c 07/26/23 * Microalbumin Level Urine 07/14/23 * CBC w/ Auto Diff 07/14/23 * Comprehensive Metabolic Panel 07/14/23 * Lipid Panel 07/14/23 [facility] Evaluation + Plan note Future Appointments Appointment Date:11/22/2023 10:00:00 AM Scheduled Provider: Location:[facility] Appointment Type:Urology CALL PAT FT Appointment Date:11/28/2023 02:00:00 PM Scheduled Provider: Location:[facility] Appointment Type:Urology FT Appointment Date:11/28/2023 03:00:00 PM Scheduled Provider: Location:[facility] Appointment Type:Urology FT Appointment Date:12/16/2023 09:00:00 AM Scheduled Provider:Javier Goins MD [facility] Appointment Type:Cardiology Follow Up (FT) Appointment Date:01/10/2024 08:15:00 AM Scheduled Provider:Bryant TAO MD Location:[facility] Appointment Type:URO Office Visit Appointment Date:07/09/2024 08:00:00 AM Scheduled Provider: Location:[facility] Appointment Type: Medicare Wellness Subsequent Future Scheduled Tests Laboratory* U Protein/Creat Ratio 07/14/23 * HgbA1c 07/14/23 * HgbA1c 07/26/23 * Microalbumin Level Urine 07/14/23 * CBC w/ Auto Diff 07/14/23 * Comprehensive Metabolic Panel 07/14/23 * Lipid Panel 07/14/23 [facility] Future Appointments Appointment Date:12/16/2023 09:00:00 AM Scheduled Provider:Javier Goins MD [facility] Appointment Type:Cardiology Follow Up (FT) Appointment Date:01/10/2024 08:15:00 AM Scheduled Provider:Bryant TAO MD Location:[facility] Appointment Type:URO Office Visit Appointment Date:07/09/2024 08:00:00 AM Scheduled Provider: Location:[facility] Appointment Type:FM Medicare Wellness Subsequent Future Scheduled Tests Laboratory* U Protein/Creat Ratio 07/14/23 * HgbA1c 07/14/23 * HgbA1c 07/26/23 * Microalbumin Level Urine 07/14/23 * CBC w/ Auto Diff 07/14/23 * Comprehensive Metabolic Panel 07/14/23 * Lipid Panel 07/14/23 [facility] Future Appointments Appointment Date:01/10/2024 08:15:00 AM Scheduled Provider:Bryant TAO MD Location:[facility] Appointment Type:URO Office Visit Appointment Date:01/13/2024 09:00:00 AM Scheduled Provider:Javier Goins MD [facility] Appointment Type:Cardiology Follow Up (FT) Appointment Date:07/09/2024 08:00:00 AM Scheduled Provider: Location:[facility] Appointment Type:FM Medicare Wellness Subsequent Diagnostic Tests Pending * Urine Culture 12/22/23 Future Scheduled Tests Laboratory* U Protein/Creat Ratio 07/14/23 * HgbA1c 07/14/23 * HgbA1c 07/26/23 * Microalbumin Level Urine 07/14/23 * CBC w/ Auto Diff 07/14/23 * Comprehensive Metabolic Panel 07/14/23 * Lipid Panel 07/14/23 [facility] Future Appointments Appointment Date:01/10/2024 08:15:00 AM Scheduled Provider:Bryant TAO MD Location:[facility] Appointment Type:URO Office Visit Appointment Date:01/13/2024 09:00:00 AM Scheduled Provider:Javier Goins MD [facility] Appointment Type:Cardiology Follow Up (FT) Appointment Date:07/09/2024 08:00:00 AM Scheduled Provider: Location:[facility] Appointment Type: Medicare Wellness Subsequent Diagnostic Tests Pending * Magnesium Level 12/22/23 Future Scheduled Tests Laboratory* U Protein/Creat Ratio 07/14/23 * HgbA1c 07/14/23 * HgbA1c 07/26/23 * Microalbumin Level Urine 07/14/23 * CBC w/ Auto Diff 07/14/23 * Comprehensive Metabolic Panel 07/14/23 * Lipid Panel 07/14/23 [facility] Future Appointments Appointment Date:01/10/2024 08:15:00 AM Scheduled Provider:Bryant TAO MD Location:[facility] Appointment Type:URO Office Visit Appointment Date:01/13/2024 09:00:00 AM Scheduled Provider:Javier Goins MD Location:[facility] Appointment Type:Cardiology Follow Up (FT) Appointment Date:07/09/2024 08:00:00 AM Scheduled Provider: Location:[facility] Appointment Type: Medicare Wellness Subsequent Future Scheduled Tests Laboratory* U Protein/Creat Ratio 07/14/23 * HgbA1c 07/14/23 * HgbA1c 07/26/23 * Microalbumin Level Urine 07/14/23 * CBC w/ Auto Diff 07/14/23 * Comprehensive Metabolic Panel 07/14/23 * Lipid Panel 07/14/23 [facility] Future Appointments Appointment Date:01/11/2024 08:00:00 AM Scheduled Provider: Location:[facility] Appointment Type:FM Lab Draw Appointment Date:01/13/2024 09:00:00 AM Scheduled Provider:Javier Goins MD Location:[facility] Appointment Type:Cardiology Follow Up (FT) Appointment Date:07/09/2024 08:00:00 AM Scheduled Provider: Location:[facility] Appointment Type: Medicare Wellness Subsequent Appointment Date:07/23/2024 08:15:00 AM Scheduled Provider:Bryant TAO MD Location:[facility] Appointment Type:URO Office Visit Diagnostic Tests Pending * PSA Free & Total 01/10/24 Future Scheduled Tests Laboratory* U Protein/Creat Ratio 07/14/23 * HgbA1c 07/14/23 * HgbA1c 07/26/23 * Microalbumin Level Urine 07/14/23 * CBC w/ Auto Diff 07/14/23 * Comprehensive Metabolic Panel 07/14/23 * Lipid Panel 07/14/23 * Magnesium Level 01/05/24 * Urine Culture 01/05/24 [facility] Evaluation + Plan note Future Appointments Appointment Date:01/13/2024 09:00:00 AM Scheduled Provider:Javier Goins MD [facility] Appointment Type:Cardiology Follow Up (FT) Appointment Date:07/09/2024 08:00:00 AM Scheduled Provider: Location:[facility] Appointment Type: Medicare Wellness Subsequent Appointment Date:07/23/2024 08:15:00 AM Scheduled Provider:Bryant TAO MD Location:[facility] Appointment Type:URO Office Visit Future Scheduled Tests Laboratory* U Protein/Creat Ratio 07/14/23 * HgbA1c 07/14/23 * HgbA1c 07/26/23 * Microalbumin Level Urine 07/14/23 * CBC w/ Auto Diff 07/14/23 * Comprehensive Metabolic Panel 07/14/23 * Lipid Panel 07/14/23 [facility] Evaluation + Plan note Future Appointments Appointment Date:07/09/2024 08:00:00 AM Scheduled Provider: Location:[facility] Appointment Type: Medicare Wellness Subsequent Appointment Date:07/23/2024 08:15:00 AM Scheduled Provider:Bryant TAO MD Location:[facility] Appointment Type:URO Office Visit Future Scheduled Tests Laboratory* U Protein/Creat Ratio 07/14/23 * HgbA1c 07/14/23 * HgbA1c 07/26/23 * Microalbumin Level Urine 07/14/23 * CBC w/ Auto Diff 07/14/23 * Comprehensive Metabolic Panel 07/14/23 * Lipid Panel 07/14/23 [facility] evaluation + Plan note Future Appointments Appointment Date:07/24/2024 09:20:00 AM Scheduled Provider:TOSHIA Reddy APRN, [place] [facility] Location:[facility] Appointment Type:URO Office Visit Appointment Date:10/08/2024 08:15:00 AM Scheduled Provider:Nancy Grace MD Location:[facility] Appointment Type: Open Appointment Date:01/07/2025 08:15:00 AM Scheduled Provider:Nancy Grace MD Location:[facility] Appointment Type: Open Appointment Date:07/09/2025 08:00:00 AM Scheduled Provider: Location:[facility] Appointment Type: Medicare Wellness Subsequent Future Scheduled Tests Laboratory* U Protein/Creat Ratio 07/14/23 * HgbA1c 07/14/23 * HgbA1c 07/26/23 * Microalbumin Level Urine 07/14/23 * CBC w/ Auto Diff 07/14/23 * Comprehensive Metabolic Panel 07/14/23 * Lipid Panel 07/14/23 [facility] evaluation + Plan note Future Appointments Appointment Date:08/21/2024 09:00:00 AM Scheduled Provider:TOSHIA Reddy APRN, [place] [facility] Location:[facility] Appointment Type:URO Office Visit Appointment Date:10/08/2024 08:15:00 AM Scheduled Provider:Nancy Grace MD Location:[facility] Appointment Type: Open Appointment Date:01/07/2025 08:15:00 AM Scheduled Provider:Nancy Grace MD Location:[facility] Appointment Type: Open Appointment Date:07/09/2025 08:00:00 AM Scheduled Provider: Location:[facility] Appointment Type: Medicare Wellness Subsequent Future Scheduled Tests Laboratory* U Protein/Creat Ratio 07/14/23 * HgbA1c 07/14/23 * HgbA1c 07/26/23 * Microalbumin Level Urine 07/14/23 * PSA Free & Total 07/24/24 * CBC w/ Auto Diff 07/14/23 * Comprehensive Metabolic Panel 07/14/23 * Lipid Panel 07/14/23 [facility] Evaluation + Plan note Future Appointments Appointment Date:08/21/2024 09:00:00 AM Scheduled Provider:TOSHIA Reddy APRN, [place] [facility] Location:[facility] Appointment Type:URO Office Visit Appointment Date:10/08/2024 08:15:00 AM Scheduled Provider:Nancy Grace MD Location:[facility] Appointment Type: Open Appointment Date:01/07/2025 08:15:00 AM Scheduled Provider:Nancy Grace MD Location:[facility] Appointment Type: Open Appointment Date:07/09/2025 08:00:00 AM Scheduled Provider: Location:[facility] Appointment Type: Medicare Wellness Subsequent [facility] evaluation + Plan note Future Appointments Appointment Date:09/03/2024 08:20:00 AM Scheduled Provider:RAMANDEEP PORTER PA-C Location:[facility] Appointment Type:URO Office Visit Appointment Date:10/08/2024 08:00:00 AM Scheduled Provider:Nancy Grace MD Location:[facility] Appointment Type: Open Appointment Date:01/07/2025 08:15:00 AM Scheduled Provider:Nancy Grace MD Location:[facility] Appointment Type: Open Appointment Date:07/09/2025 08:00:00 AM Scheduled Provider: Location:[facility] Appointment Type: Medicare Wellness Subsequent [facility] evaluation + Plan note Future Appointments Appointment Date:10/08/2024 08:00:00 AM Scheduled Provider:Nancy Grace MD Location:[facility] Appointment Type: Open Appointment Date:01/07/2025 08:15:00 AM Scheduled Provider:Nancy Grace MD Location:[facility] Appointment Type: Open Appointment Date:07/09/2025 08:00:00 AM Scheduled Provider: Location:[facility] Appointment Type: Medicare Wellness Subsequent [facility] evaluation + Plan note Future Appointments Appointment Date:01/07/2025 08:20:00 AM Scheduled Provider:Nancy Grace MD Location:[facility] Appointment Type: Open Appointment Date:03/27/2025 08:00:00 AM Scheduled Provider: Location:[facility] Appointment Type:URO Nurse Visit Appointment Date:04/01/2025 08:15:00 AM Scheduled Provider:Bryant TAO MD Location:[facility] Appointment Type:URO Office Visit Appointment Date:07/09/2025 08:00:00 AM Scheduled Provider: Location:[facility] Appointment Type: Medicare Wellness Subsequent Future Scheduled Tests Laboratory* PSA Free & Total 09/25/24 * Magnesium Level 10/08/24 [facility] evaluation + Plan note Future Appointments Appointment Date:01/07/2025 08:20:00 AM Scheduled Provider:Nancy Grace MD Location:[facility] Appointment Type: Open Appointment Date:03/27/2025 08:00:00 AM Scheduled Provider: Location:[facility] Appointment Type:URO Nurse Visit Appointment Date:04/01/2025 08:15:00 AM Scheduled Provider:Bryant ATO MD Location:[facility] Appointment Type:URO Office Visit Appointment Date:07/09/2025 08:00:00 AM Scheduled Provider: Location:[facility] Appointment Type: Medicare Wellness Subsequent Diagnostic Tests Pending * Urine Culture 11/14/24 Future Scheduled Tests Laboratory* PSA Free & Total 09/25/24 * Magnesium Level 10/08/24 [facility] evaluation + Plan note Future Appointments Appointment Date:04/09/2025 08:40:00 AM Scheduled Provider:MARINO KEARNS CNP Location:[facility] Appointment Type:FM Open Appointment Date:06/25/2025 09:15:00 AM Scheduled Provider:Bryant TAO MD Location:[facility] [place] [facility] Appointment Type:URO Office Visit Appointment Date:07/09/2025 08:00:00 AM Scheduled Provider: [facility] Type: Medicare Wellness Subsequent Diagnostic Tests Pending * PSA Free & Total 03/19/25 [facility] Evaluation noteNo assessment information available [facility] Work Phone: Evaluation note* Diagnosis Carpal tunnel syndrome on both sides- Primary Carpal tunnel syndrome Polyneuropathy Unspecified hereditary and idiopathic peripheral neuropathy documented in this encounter [facility] HealthcareEvaluation note* Diagnosis Carpal tunnel syndrome of right wrist- Primary Pain of right hand documented in this encounter [facility] HealthcareEvaluation note* Diagnosis Encounter for other preprocedural examination [facility] Diagnosis Preop examination Unspecified pre-operative examination documented in this encounter [facility] note* Diagnosis S/P carpal tunnel release- Primary Other postprocedural status documented in this encounter [facility] HealthcareEvaluation note* Diagnosis S/P carpal tunnel release- Primary Other postprocedural status documented in this encounter [facility] HealthcareHospital course Narrative No data available for this section [facility] No data available for this section [facility] Additional Instructions DISCHARGE INSTRUCTIONS [...] your post-operative appointment in 1-2 weeks. [ ][facility] Work Phone: Hospital Discharge instructionsAmbulatory Orders* Referral to Gastroenterology Time Frame: 03/18/25, Location: None Selected [facility] Work Phone: InstructionsNot on filedocumented in this encounter [facility] No data available for this section [facility] CenterReason for visit Narrative* Other Medical (Routine) - ClosedSpecialtyDiagnoses / ProceduresReferred By ContactReferred To Contact Neurology Diagnoses BUE EMG rt hand numbness in fingers, ref by Gustavo Kearns [employer] Procedures EMG Marino Kearns [facility] [address] [place] [address] Phone: tel: fax: Carlos Howe DO [address] [place] [address] Phone: tel: fax: Referral IDStatusReasonStart DateExpiration DateVisits RequestedVisits [id number] Perform Procedure / [facility] Healthcare Summary Purpose Family History Relationship [...] section and content) DATE CREATED AUTHOR 07/14/2022 [facility] DATE CREATED AUTHOR AUTHOR'S ORGANIZ ATION 12/26/2023 [facility] DATE CREATED AUTHOR AUTHOR'S ORGANIZ ATION 12/27/2023 [facility] DATE CREATED AUTHOR AUTHOR'S ORGANIZ ATION 12/29/2023 [facility] DATE CREATED AUTHOR AUTHOR'S ORGANIZ ATION 12/30/2023 [facility] DATE CREATED AUTHOR AUTHOR'S ORGANIZ ATION 12/31/2023 [facility] DATE CREATED AUTHOR AUTHOR'S ORGANIZ ATION 01/03/2024 [facility] DATE CREATED AUTHOR AUTHOR'S ORGANIZ ATION 01/08/2024 [facility] DATE CREATED AUTHOR AUTHOR'S ORGANIZ ATION 02/01/2024 [facility] DATE CREATED AUTHOR AUTHOR'S ORGANIZ ATION 02/03/2024 [facility] DATE CREATED AUTHOR AUTHOR'S ORGANIZ ATION 02/24/2024 [facility] DATE CREATED AUTHOR AUTHOR'S ORGANIZ ATION 07/11/2024 [facility] DATE CREATED AUTHOR AUTHOR'S ORGANIZ ATION 07/18/2024 [facility] DATE CREATED AUTHOR AUTHOR'S ORGANIZ ATION 07/26/2024 [facility] DATE CREATED AUTHOR AUTHOR'S ORGANIZ ATION 08/10/2024 [facility] DATE CREATED AUTHOR AUTHOR'S ORGANIZ ATION 08/17/2024 [facility] DATE CREATED AUTHOR AUTHOR'S ORGANIZ ATION 08/23/2024 [facility] DATE CREATED AUTHOR AUTHOR'S ORGANIZ ATION 09/05/2024 [facility] DATE CREATED AUTHOR AUTHOR'S ORGANIZ ATION 09/25/2024 [facility] DATE CREATED AUTHOR AUTHOR'S ORGANIZ ATION 09/25/2024 [facility] DATE CREATED AUTHOR AUTHOR'S ORGANIZ ATION 10/11/2024 [facility] DATE CREATED AUTHOR AUTHOR'S ORGANIZ ATION 10/12/2024 [facility] DATE CREATED AUTHOR AUTHOR'S ORGANIZ ATION 11/16/2024 [facility] DATE CREATED AUTHOR AUTHOR'S ORGANIZ ATION 11/19/2024 [facility] DATE CREATED AUTHOR AUTHOR'S ORGANIZ ATION 01/09/2025 [facility] DATE CREATED AUTHOR AUTHOR'S ORGANIZ ATION 01/10/2025 [facility] DATE CREATED AUTHOR AUTHOR'S ORGANIZ ATION 02/02/2025 [facility] DATE CREATED AUTHOR AUTHOR'S ORGANIZ ATION 03/10/2025 [facility] DATE CREATED AUTHOR AUTHOR'S ORGANIZ ATION 03/11/2025 [facility] DATE CREATED AUTHOR AUTHOR'S ORGANIZ ATION 03/13/2025 [facility] DATE CREATED AUTHOR AUTHOR'S ORGANIZ ATION 03/20/2025 [facility] DATE CREATED AUTHOR AUTHOR'S ORGANIZ ATION 04/11/2025 [facility] Patient Care team informatio n (unrecognized section and content) Team Status: Active Member Role Status Dates Nancy Grace MD Primary Care Provider Active Team Status: Inactive Member Role Status Dates Ramandeep Porter PA-C Attending Provider Active Start: July 18, 2023 End: July 18, 2023[facility] ProviderActiveStart: July 18, 2023 End: [...] 09, 2023 End: September 09, 2023Bryant Tao [facility]tt[facility] ProviderActiveStart: September 09, 2023 End: September 09, 2023Team MemberRelationshipSpecialtyStart DateEnd Date Nancy Grace MD [address] [place] [address] PCP - GeneralFamily Medicine07/18/24Team MemberRelationshipSpecialtyStart DateEnd Date Nancy Grace MD [address] [place] [address] PCP - GeneralFamily Medicine07/18/24Team MemberRelationshipSpecialtyStart DateEnd Date Tyrese Mcgrath MD PCP - GeneralFamily Medicine02/27/18Team MemberRelationshipSpecialtyStart DateEnd Date Nancy Grace MD [address] [place] [address] PCP - Generalmily Medicine07/18/24Team MemberRelationshipSpecialtyStart DateEnd Date Nancy Grace MD [address] [place] [address] PCP - [facility]07/18/24Team MemberRelationshipSpecialtyStart DateEnd Date Nancy Grace MD [address] [place] [address] PCP - [facility]07/18/24Team MemberRelationshipSpecialtyStart DateEnd Date Nancy Grace MD [address] [place] [address] PCP - [facility]07/18/24Team MemberRelationshipSpecialtyStart DateEnd Date Nancy Grace MD [address] [place] [address] PCP - [facility]07/18/24Team MemberRelationshipSpecialtyStart DateEnd Date Nancy Grace MD [address] [place] [address] PCP - [facility]07/18/24 Team Status: Active Member Role Status [...] Status: Inactive Member Role/Relationship Status Maria Guadalupe Dumont MD Attending Provider Active Start : [...] BE BASED ON THE PRIMARY CLINICAL RECORDS. [facility]. provides no warranty or guarantee of the accuracy or completeness of information in this document.
[2025-05-01 07:49] LABS: Protein Creatinine Ratio Urine 1.15; Total Protein Urine Random 38.0 mg/dL (<=11.9)
[2025-05-01 07:55] LABS: Albumin Level 3.3 g/dL (3.4-5.0); Anion Gap 14.4; Blood Urea Nitrogen 23.0 mg/dL (7.0-18.0); Calcium 8.8 mg/dL (8.5-10.1); Carbon Dioxide 27.5 mmol/L (21.0-32.0); Chloride 95 mmol/L (98-107); Estimated GFR (African America 45 (>=60 mL/min/1.73m^2); Estimated GFR (Non-African Ame 37 (>=60 mL/min/1.73m^2); Glucose 185 mg/dL (74-106); Potassium 3.9 mmol/L (3.5-5.1); Sodium 133 mmol/L (136-145); Uric Acid 5.7 mg/dL (3.5-7.2)
[2025-05-01 08:26] LABS: Hematocrit 37.6 % (42.0-54.0); Hemoglobin 12.9 g/dL (14.0-18.0); Mean Corpuscular HGB Conc 34.3 g/dL (29.9-35.2); Mean Corpuscular Hemoglobin 32.5 pg (25.9-34.0); Mean Corpuscular Volume 94.7 fL (80.0-94.0); Platelet Count 331 10^3/uL (150-450); Red Blood Count 3.97 10^6/uL (4.70-6.10); White Blood Count 10.8 10^3/uL (4.0-11.0)
[2025-05-01 09:30] LABS: Magnesium 0.9 mg/dL (1.8-2.4)
[2025-05-01 09:40] LABS: Glucose Urine UA NEGATIVE (NEGATIVE)
[2025-05-01 10:23] LABS: Cast Seen? NONE SEEN #/LPF (NONE SEEN); Crystals Seen? None Seen #/HPF (None Seen)
== END 2025-05-01 06:53 | disposition home or self-care (01) ==
LOC: LAB 06:53
PROVIDERS: PCP Family Medicine; Visit Provider Family Medicine
DX: E83.42 Hypomagnesemia (principal); E11.22 Type 2 diabetes mellitus with diabetic chronic kidney disease; I12.9 Hypertensive chronic kidney disease with stage 1 through stage 4 chronic kidney disease, or unspecified chronic kidney disease; N18.30 Chronic kidney disease, stage 3 unspecified; N40.1 Benign prostatic hyperplasia with lower urinary tract symptoms; R39.14 Feeling of incomplete bladder emptying
CPT/HCPCS: 36415; 80069; 81001; 82306; 82570; 83036; 83735; 83970; 84156; 84550; 85027

== ENCOUNTER 2025-05-09 07:58 | Outpatient (RCR) | payer MEDICARE, OTHER, SELFPAY ==
[2025-05-09 08:00] VITALS: BP 133/82; PULSE 82; TEMP 35.9; O2SAT 97
[2025-05-09] MEDS: MAGNESIUM SULFATE IN WATER 4 GM/100 ML PIGGYBACK IV (08:14)
--- NOTE | 2025-05-09 09:17 | PC.NURSE ---
Tolerating infusion without c/o. Denies needs.
== END 2025-06-05 23:59 | disposition home or self-care (01) ==
LOC: INF 07:58
PROVIDERS: PCP Family Medicine; Visit Provider Family Medicine
DX: E83.42 Hypomagnesemia (principal)
CPT/HCPCS: 96365; 96366; J3475

== ENCOUNTER 2025-05-27 07:35 | Outpatient (OUT) | payer MEDICARE, OTHER, SELFPAY ==
--- OUTSIDE RECORDS SUMMARY | 2025-05-20 10:18 | XMS_ITS | Continuity of Care Document ---
Author Organization [facility] Address [address] [place] [address] Phone Care Team Providers Care Gold Assayer Name Role Phone KarmaKaelIvania DO Primary Care Provider Karma, Ivania DO Attending Provider [phone] Clara Encarnacion APRN Attending Provider Cammie Dumont [...] : April 17, 2025 End: April 17, 2025ZullyOSMAR Meyerripedroy Care ProviderActiveStart: April 17, 2025 End: April 17, 2025 Visit Care Team Team Status: Inactive Member Role/Relationship Status Dates Ivania Parada DO Primary Care Provider Active S tart: April 25, 2025 End: April 25, 2025Jekierra Karma , DOAttending ProviderActiveStart: April 25, 2025 End: April 25, 2025 Visit Care Team Team Status: Active Member Role/Relationship Status Dates Ivania Parada DO Primary Care Provider Active S tart: May 01, 2025 Fernando Dumont MDAtthieu ProviderActiveStart: May 01, 2025 Patient Care Team Team Status: Inactive Member Role/Relationship Status Dates Ivania Karma , DO Primary Care Provider Active S tart: May 20, 2025 End: May 20, 2025Jekierra Karma , DOAttending ProviderActiveStart: May 20, 2025 End: May 20, 2025 Chief Complaint and Reason for Visit Chief Complaint Admit Date Establish Care March 18, 2025 8 :01am Dysuria April 03, 2025 9 :40am R30. April 03, 2025 1 0:00am ckd 2 April 17, 2025 10:13am 1M April 25, 2025 8:13am fever on and off, chills, flu like sympt oms May 20, 2025 2:21pm Reason for Visit Admit Date BPH (benign [...] chronic kidney disease April 17, 2025 10:13am BPH (benign prostatic hyperplasia) Novem 2024 8:13am CKD (chronic kidney disease) stage 3, GF R 30-59 ml/min April 25, 2025 8:13am Hiatal hernia with GERD without esophagi tis April 25, 2025 8:13am Hypercholesteremia April 25, 2025 8:13am Hypertensive chronic kidney disease with stage 1 through stage 4 chronic ki April 25, 2025 8:13am Hypomagnesemia April 25, 2025 8:13am Tachycardia April 25, 2025 8:13am Type 2 diabetes mellitus wit h diabetic chronic kidney disease April 25, 2025 8:13am Reason for Referral Type Reason(s) Provider Provider Contact Information P rovider Address Start Date Referral to supervisor carding Nausea an d vomiting Hiatal hernia with gastroesophageal reflux disease without jkuayogzojbN37.2 - Nausea with vomiting, unspecified,K44.9 - Diaphragmatic hernia without obstruction or gangrene,K21.9 - Gastro-esophageal reflux disease without esophagitisFPG GastroenterologyWork Phone: [phone] [address] [address]Ziibcmf [address]24 Allergies, Adverse Reactions, Alerts Allergen Type Severity Reaction Last Updated Verified Status celecoxib Allergy Unknown Unknown Reaction May 20, 2025 2:25pm Yes Active Social History Smoking Status Status Start Date End Date Date of Observa tion Never smoked tobacco (finding) May 13, 2025 3:43pm Observation Status Observation Response Date of Response Legal Sex Male (finding) Sex Assigned At [facility] 1954 Family History Relationship Condition Age at Onset Recorded Date/T kamran mother Diabetes mellitus Unknown HypertensionUnknownfatherHypertensionUnknownMalignant neoplasm of colonUnknown brotherHypertensionUnknownbrotherHypertensionUnknownbrotherHypertensionUnknown Problems Active Problems Problem Diagnosis/Recorded Date Onset Date Status C omments BPH (benign prostatic hyperplasia) September 09, 2023 10:55am Unknown Active Elevated PSA measurementApril 2023 10:55amUnknownActiveType 2 diabetes mellitus with diabetic chronic kidney diseaseNovember 2024 10:42amUnknown ActiveSecondary hyperparathyroidismNovember 2024 10:42amUnknownActiveFever May 20, 2025 2:36pmUnknownActiveDiabetesApril 2023 10:55amUnknown ActiveKidney diseaseOctober 2024 7:43amUnknownActiveCKD (chronic kidney disease) stage 3, GFR 30-59 ml/minNovember 2024 10:41amUnknownActive Hypertensive chronic kidney disease with stage 1 through stage 4 chronic kidney disease, or unspecified chronic kidney diseaseNovember 2024 10:42amUnknown ActiveCoughDecember 2024 2:36pmUnknownActiveHypercholesteremiaApril 2023 10:56amUnknownActiveTachycardiaApril 2023 10:59amUnknownActiveHiatal hernia with GERD without esophagitisApril 2023 10:55amUnknownActiveWeakness May 20, 2025 2:36pmUnknownActiveAcute UTIOctober 2024 9:24amUnknown ActiveNausea and vomitingOctober 2024 8:19amUnknownActiveHypertensionApril 2023 10:58amUnknownActiveHypomagnesemiaOctober 2024 8:26amUnknown ActiveHypomagnesemiaOctober 2024 7:07amUnknownActiveInactive/Resolved Problems Problem Diagnosis/Recorded Date Onset Date Status [...] tablet Active 20 MG PO Daily 90 1March 20, 2025 11:00pmComplies with drug therapyGlipizide 5 mg tablet Zmjyusftlfqs2BNMAViopn733Qqwhwdwn 3rd, 2025 12:00amNove2024 8:59am Levofloxacin 500 mg dtyjnnZxwjletoqicg934NLZAWgcpv742Ilcuwkwy 3rd, 2025 12:00am April 17, 2025 10:21amGlipizide 10 mg hunzxrLqwpolcbjucl54TJDNMzsdx445 April 30, 2025 2:54pmDece2024 9:16amGlipizide 10 mg tabletActive 48RDCLRuhpg445Fcxojybw 1st, 2025 9:16amComplies with drug therapyCyclobenzaprine 10 mg ZyxxkiTqlpwdojtlfm93OMVEVjbiw times daily as needed for Muscle Spasm April 03, 2017 11:00pmApril 2023 10:39amMetformin 500 mg Tablet Isjglnklgbej890GDTICoznk dailyApril 03, 2017 11:00pmMarch 18, 2025 8:17amdmOxycodone-Acetaminophen (Percocet) 5-325 mg DtkatfEufzjwdabiab0KPMDOD17E as needed for PainApril 03, 2017 11:00pmApril 2023 10:40amEsomeprazole Magnesium (Nexium) 40 mg Capsule,Delayed Release(Dr/Ec)Uitiowndndcj68PSGDYholz April 03, 2017 11:00pmDece2016 12:15pmgerdLisinopril- Hydrochlorothiazide 10-12.5 mg VxigcfImbwrhycjvmc9KOSGCSangmHjtzquh 29th, 2017 11:00pmce2016 12:12pmhtnGabapentin (Neurontin) 100 mg Capsule Rfcfbfqesamv476XHWQVniwo times daily as needed for PainApril 03, 2017 11:00pm[facility]2016 9:09amNaproxen Sodium (Aleve) 220 mg Tablet Ogkpvtcyyggw818RKGBFgmdj dailyMay 13, 2017 12:00amDecember 2016 12:56pmpainLisinopril-Hydrochlorothiazide 20-12.5 xxpbjqWorqqwdtuius1MSEUCMdjyt May 18, 2017 12:00amApril 2023 10:40amPantoprazole 40 MG tablet,delayed release (DR/EC)Mylclibwfmdo42UDTGJzipzRoskmjgx 13th, 2017 12:00am September 09, 2023 10:44amSennosides-Docusate Sodium (Dok Plus) 8.6-50 mg Tablet Vbaaoqbsvuqy9ZJDLTVwxjc fieic17454ApmgffqwMay 19, 2017 12:00amApril 2023 10:41amOxycodone-Acetaminophen 5-325 mg EbcawqWfwiezjqqnfg7TNNZJV9M as needed for Pain Scale 1 - 796623IwmfcvpyMay 19, 2017 12:00amApril 2023 10:44am Fentanyl 25 mcg/hr Patch 72 LejbWfyucjrfaqff10WYCKWFZYFDGJRKkscn 72 nqmgt6584 May 19, 2017 12:00amApril 2023 10:39amFerrous Sulfate 324 mg (65 mg iron) Tablet,Delayed Release (Dr/Ec)Xqjripzogeup552EUEQTsulz ehhfd91382ApkeopjlMay 19, 2017 12:00amApril 2023 10:40amCephalexin (Keflex) 500 mg capsule Xnmwfovyqwno810UBORY1P7886Pomklsfp 14th, 2017 12:00amApril 2023 10:39am Amlodipine 5 mg oavwzeHwcnyetnkjqs79ECDDXdsrxOdqoo 2023 11:00pmNovember 2024 10:40amGlipizide 5 mg bhtvmxMtacpljydgtc3ZGAGZctxxRaaml 2023 11:00pmOctober 2024 7:38amMagnesium Oxide 400 mg (241.3 mg magnesium) kdseaoNngcai754HCIARohnkKmdgb 2023 11:00pmComplies with drug therapy Metoprolol Succinate 25 mg tablet extended release 24 ymGgxzhjqzzpvn22ZWSNRssoz September 08, 2023 11:00pmNovember 2024 10:40amOmeprazole 40 mg capsule,delayed release(DR/EC)Eitmgh70NDXHRsexrQlqiw 2023 11:00pmComplies with drug therapyOndansetron 4 mg tablet,ydmkoqlsfodcjvShfiywvpzkju7MACFWXJHOWBX Every 8 hours as needed for nauseaApril 2023 11:00pmOctpikeville medical center 2024 7:39amPotassium Chloride 10 mEq capsule, extended tfobzimSapcvqrmioxf47HBDJV DailyApril 2023 11:00pmOctpikeville medical center 2024 7:15amHydrochlorothiazide 12.5 mg ylenhsNrvyvj01.8OCDJBnikf280Tenhakyo 2024 12:00amComplies with drug therapyAmlodipine 5 mg luuwquFmlkiw4QUXSLlqhlKaeprpee 2024 10:39amComplies with drug therapyMetoprolol Succinate 25 mg tablet extended release 24 hr Assixtqqymvs82NCRBUrzdo dailyFormerly [facility]2024 10:40amNovember 2024 10:40amMetoprolol Succinate 25 mg tablet extended release 24 rrClwiyg61BDXPSsogc gtyeu2014Ffsoripf 2024 10:40amComplies with drug therapyAtorvastatin 40 mg ifkpfwTpunammmhovo07AHOLVkcviKlcsmsw 2024 11:00pmOctpikeville medical center 2024 11:08am Tamsulosin 0.4 mg capsuleActive0.4MGPODailyAscension [facility] 2024 11:00pmComplies with drug therapyGabapentin 100 mg hbhztnpLtmvngwyupur485BIAAEgyse at bedtime March 14, 2025 11:00pmOctpikeville medical center 2024 7:14amLisinopril 40 mg tabletActive 40MGPODailyAscension [facility] 2024 11:00pmComplies with drug therapySemaglutide (Ozempic) 0.25 mg or 0.5 mg (2 mg/3 mL) pen injectorDiscontinued0.25MGSUBCUT every weekMarch 14, 2025 11:00pmOctpikeville medical center 2024 7:15amfor 4 weeks Ondansetron 4 mg tablet,pxuyjwxpjkplueWejhly9BIRQFugck 8 hours as needed for nausea and fffvvhdy872Uvrcqcg 12th, 2025 11:00pmComplies with drug therapy Empagliflozin (Jardiance) 10 mg uwufxyYicgsfvclncy56XGBNZwghx004Gogrxlau 20th, 2025 12:00amDecember 2024 3:41pmGlipizide 10 mg whogiqFwcpyhmqwfiq24IUCH Iccsm146LajdopxaApril 25, 2025 8:58amNovember 2024 2:55pmAmoxicillin-Pot Clavulanate 500-125 mg aapyizBivjuoawzdlv3BDMEGN8R17549Wmoojdg 2024 11:00pmNovember 2024 10:21am Medical Equipment Device Date Implanted Device Details [place] Three Level Deformity May 18, 2017 CANCELLOUS [...] RELINE SET SCREWDecember 2016NUVASIVE RELINE SET SCREW May 18, 2017NUVASIVE RELINE SET SCREWDecember 2016 Procedures Procedure Date Performed Status Urine Culture April 03, 2025 completed Relevant Diagnostic Tests and/or Laboratory Data Laboratory Results Test Collection Date/Time Result Date/Time Result Interpretation Reference Range Result Comment Performing Site Estimated Average Glucose March 20, 2025 5:42am March 20, 2025 5:42am 171 mg/dL Cholesterol/HDL RatioOct2024 5:42amOct2024 5:42am3.03.3 - 4.4 LOW RISK4.4 - 7.1 AVERAGE RISK7.1 - 11.0 MODERATE RISK>11.0 HIGH RISK Magnesium LevelOct2024 5:42amOctober 2024 5:42am0.7 mg/dLBelow lower panic limits1.8-2.4RESULTS CALLED TO CALISTA CHAVIRA, Joseph GapOct2024 5:42amOctober 2024 5:42am14.8Basophils # (Auto)March 20, 2025 5:42amOctober 2024 5:42am0.1 10 3/uL0.0-0.1Urine ColorOct2024 8:50amOctober 2024 9:00amyellowBedside GlucoseOct2024 9:10amOctober 2024 9:19bc552Muabp Other CastsNov2024 7:00am NONE SEEN #/LPFNONE SEENUrine Random CreatinineNov2024 7:00am May 01, 2025 7:00am33.14 mg/dL20.00-300.00Parathyroid Hormone (Intact) May 01, 2025 7:14amNovemb2024 7:14am26 pg/pZ97-47Qyfvreggg at: [facility] [id number] [place], [place] [id number] Director: Abdullahi Gan PhD, Phone: [phone] Average GlucoseNov2024 7:14amNovemb2024 7:43ot486 mg/aB56-Vyzdazo Vitamin D TotalNov2024 7:14amNovemb2024 7:14am34.4 ng/mL<20 ng/mL Vit D vxtyqnrrl23-<30 ng/mL Vit D tgaobogcjpmu88-365 ng/mL Vit D sufficient>100 ng/mL Potential ToxicityMagnesium LevelNov2024 7:14amNovemb2024 7:14am0.9 mg/dLBelow lower panic limits1.8-2.4RESULTS CALLED TO CALISTA CHAVIRA LPN at 0926Uric AcidFormerly [facility]2024 7:14amNovemb2024 7:14am5.7 mg/dL3.5-7.2Anion GapFormerly [facility]2024 7:14amNovemb2024 7:14am14.4 HematocritNov2024 7:14amNove2024 7:14am37.6 %Below low jdfbju72.0-54.0POC SARS CoV-2 AntigenDece2024 2:35pmDece2024 2:41pmNegativeHemoglobin A3mZfrmcvw 2024 5:42amOctpikeville medical center 2024 5:42am7.6 %Above high normal4.5-6.2ADA RECOMMENDED LIMIT 4.0 - 6.0ADA THERAPEUTIC TARGET < 7.0ACTION SUGGESTED> 7.0Cholesterol LevelOctpikeville medical center 2024 5:42amOct2024 5:58zq775 mg/dL<=200Albumin/Globulin RatioOct2024 5:42amOctpikeville medical center 2024 5:42am1.1Basophils (%) (Auto)March 20, 2025 5:42amOctpikeville medical center 2024 5:42am1.3 %0.2-2.0Urine AppearanceOctpikeville medical center 2024 8:50amOctpikeville medical center 2024 9:00amcloudyUrine Other CrystalsMay 01, 2025 7:00amNone Seen #/HPFNone SeenUrine Protein/Creatinine RatioNove2024 7:00amNove2024 7:00am1.15Hemoglobin U9oJtpxxyxo 2024 7:14am May 01, 2025 7:14am8.8 %Above high normal4.5-6.2ADA RECOMMENDED LIMIT 4.0 - 6.0ADA THERAPEUTIC TARGET < 7.0ACTION SUGGESTED> 7.0AlbuminNovember 2024 7:14amNovember 2024 7:14am3.3 g/dLBelow low normal3.4-5.0Hemoglobin May 01, 2025 7:14amNovember 2024 7:14am12.9 g/dLBelow low normal 14.0-18.0Influenza Type A (Rapid)May 20, 2025 2:35pmDecember 2024 2:41pmNegativeHDL CholesterolOctober 2024 5:42amOctober 2024 5:42am 45 mg/dL40-60> or =60 mg/dl - LOW CARDIOVASCULAR RISK<40 mg/dl - HIGH CARDIOVASCULAR RISKAlbuminOctober 2024 5:42amOctober 2024 5:42am3.8 g/dL3.4-5.0Eosinophils # (Auto)March 20, 2025 5:42amOctober 2024 5:42am0.1 10 3/uL0.0-0.7Urine Glucose (UA)April 03, 2025 8:50amOctober 2024 9:44iv269ln/dLUrine BacteriaNovember 2024 7:00amLARGE #/HPFAbnormal (applies to non-numeric results)NONE SEENUrine Random Total ProteinNovember 2024 7:00amNovemb2024 7:00am38.0 mg/dLAbove high normal<=11.9 BUN/Creatinine RatioNovemb2024 7:14amNovember 2024 7:14am12.6Mean Corpuscular HemoglobinNovember 2024 7:14amNovember 2024 7:14am32.5 pg25.9-34.0Influenza Type B (Rapid)May 20, 2025 2:35pmDecember 2024 2:41pmNegativeLDL Cholesterol, CalculatedOctober 2024 5:42amOctober 2024 5:42am68.2 mg/dL<100 mg/dl QQKBJTI016-885 mg/dl NEAR OR ABOVE YKXAAZY414- 159 mg/dl BORDERLINE NZBQ429-916 mg/dl HIGH>190 mg/dl VERY HIGHAlkaline PhosphataseOct2024 5:42amOct2024 5:42am80 U/L46-116 Eosinophils (%) (Auto)March 20, 2025 5:42amOct2024 5:42am2.4 % 0.9-7.0Urine BilirubinOct2024 8:50amOctober 2024 9:00amnegative Urine BilirubinNovember 2024 7:00amNEGATIVENEGATIVEBlood Urea Nitrogen May 01, 2025 7:14amNovemb2024 7:14am23.0 mg/dLAbove high normal 7.0-18.0Mean Corpuscular Hemoglobin ConcentNov2024 7:14amNovemb2024 7:14am34.3 g/dL29.9-35.2Triglycerides LevelOct2024 5:42am March 20, 2025 5:65nf922 mg/dL<=150Alanine Aminotransferase (ALT/SGPT) March 20, 2025 5:42amOct2024 5:42am27 U/S36-86DibdgcttiyKtzvmzs 15th, 2025 5:42amOct2024 5:42am40.1 %Below low ejucfe41.0-54.0Urine KetonesOctober 2024 8:50amOct2024 9:00amnegativeUrine Occult BloodNov2024 7:00amSMALLAbnormal (applies to non-numeric results) NEGATIVECalcium LevelNov2024 7:14amNovemb2024 7:14am8.8 mg/dL8.5-10.1Mean Corpuscular VolumeNov2024 7:14amNovemb2024 7:14am94.7 fLAbove high lrutac35.0-94.0VLDL CholesterolOct2024 5:42amOct2024 5:42am20.8 mg/dLAspartate Amino Transf (AST/SGOT) March 20, 2025 5:42amOct2024 5:42am18 U/S69-67EpoidhdlxbNupjaok 2024 5:42amOctober 2024 5:42am13.6 g/dLBelow low qbpisr73.0-18.0 Urine Specific GravityOctober 2024 8:50amOctober 2024 9:00am1.010 Urine AppearanceNovember 2024 7:00amSL CLOUDYCLEARChloride LevelNovember 2024 7:14amNovember 2024 7:14am95 mmol/LBelow low pumypt15-690Ghbe Platelet VolumeNovember 2024 7:14amNovember 2024 7:14am9.6 fL 9.5-13.5BUN/Creatinine RatioOct2024 5:42amOct2024 5:42am 9.6Immature Granulocyte # (Auto)March 20, 2025 5:42amOct2024 5:42am0.02 10 3/uL0.00-0.03Urine Occult BloodOctober 2024 8:50amOctober 2024 9:00ammoderateUrine ColorNovember 2024 7:00amLT. YELLOWYELLOW Carbon Dioxide LevelNov2024 7:14amNovember 2024 7:14am27.5 mmol/L21.0-32.0Platelet CountNovember 2024 7:14amNovember 2024 7:84wl019 10 3/rI288-999Vrwyw Urea NitrogenOct2024 5:42amOct2024 5:42am12.0 mg/dL7.0-18.0Immature Granulocyte % (Auto)March 20, 2025 5:42amOctober 2024 5:42am0.4 %0.0-0.5Urine pHOctober 2024 8:50amOctober 2024 9:00am6.5Urine Glucose (UA)May 01, 2025 7:00am NEGATIVE mg/dLNEGATIVECreatinineNov2024 7:14amNovember 2024 7:14am1.82 mg/dLAbove high normal0.70-1.30Red Blood CountNovember 2024 7:14amNovember 2024 7:14am3.97 10 6/uLBelow low normal4.70-6.10Calcium LevelOctpikeville medical center 2024 5:42amOctober 2024 5:42am8.7 mg/dL8.5-10.1 Lymphocytes # (Auto)March 20, 2025 5:42amOctober 2024 5:42am1.4 10 3/uL1.2-3.8Urine ProteinOctpikeville medical center 2024 8:50amOctober 2024 9:00am 30mg/dLUrine KetonesNov2024 7:00amNEGATIVE mg/dLNEGATIVEEstimated GFR ()May 01, 2025 7:14amNove2024 7:14am45 Below low normal>=60 mL/min/1.73m 2Red Cell Distribution WidthMay 01, 2025 7:14amNovemb2024 7:14am11.8 %11.0-15.0Chloride LevelOctpikeville medical center 2024 5:42amOctober 2024 5:47lw652 mmol/W43-691Ewwabpkdjbm (%) (Auto) March 20, 2025 5:42amOctober 2024 5:42am25.0 %20.5-60.0Urine UrobilinogenOctpikeville medical center 2024 8:50amOctober 2024 9:00am0.2EU/dLUrine Leukocyte EsteraseNov2024 7:00amLARGEAbnormal (applies to non- numeric results)NEGATIVEEstimated GFR (Non- AmericanNov2024 7:14amNovemb2024 7:27jc38Jztqu low normal>=60 mL/min/1.73m 2Corrected White Blood CountNov2024 7:14amNovemb2024 7:14am10.8 10 3/uL4.0-11.0Carbon Dioxide LevelOct2024 5:42amOctober 2024 5:42am30.4 mmol/L21.0-32.0Mean Corpuscular HemoglobinOctober 2024 5:42am March 20, 2025 5:42am33.1 pg25.9-34.0Urine NitriteOctober 2024 8:50am April 03, 2025 9:00amNegativeUrine MucusNov2024 7:00amNONE SEEN NONE SEENGlucose LevelNov2024 7:14amNovember 2024 7:69yq998 mg/dLAbove high -372OxnbcbfrtlLmppwaa 2024 5:42amOct2024 5:42am1.25 mg/dL0.70-1.30Mean Corpuscular Hemoglobin ConcentOct2024 5:42amOct2024 5:42am33.9 g/dL29.9-35.2Urine Leukocyte Esterase April 03, 2025 8:50amOctober 2024 9:00ammoderateUrine NitriteNov2024 7:00amNEGATIVENEGATIVEPotassium LevelNov2024 7:14am May 01, 2025 7:14am3.9 mmol/L3.5-5.1Estimated GFR () March 20, 2025 5:42amOct2024 5:42am>60>=60 mL/min/1.73m 2Mean Corpuscular VolumeOct2024 5:42amOct2024 5:42am97.6 fLAbove high kvqcyx26.0-94.0Urine pHNovember 2024 7:00am6.05.0-9.0Sodium Level May 01, 2025 7:14amNovemb2024 7:04nr322 mmol/LBelow low normal 136-145Estimated GFR (Non- AmericanOct2024 5:42amOct2024 5:92ll59Pbznf low normal>=60 mL/min/1.73m 2Monocytes # (Auto)March 20, 2025 5:42amOctober 2024 5:42am0.6 10 3/uL0.3-0.8Urine ProteinNovember 2024 7:00amTRACE mg/dLNEG/TRACEPhosphorus LevelNovember 2024 7:14am May 01, 2025 7:14am3.5 mg/dL2.6-4.7GlobulinOctober 2024 5:42am March 20, 2025 5:42am3.6 g/dLMonocytes (%) (Auto)March 20, 2025 5:42am March 20, 2025 5:42am11.6 %1.7-12.0Urine RBCNovember 2024 7:68aq4-8 #/HPFAbnormal (applies to non-numeric results)0-2Glucose LevelOctober 2024 5:42amOct2024 5:23sm643 mg/dLAbove high -647Ockz Platelet VolumeOctober 2024 5:42amOct2024 5:42am9.7 fL9.5-13.5Urine Specific GravityNovember 2024 7:00am<=1.005Abnormal (applies to non- numeric results)1.005-1.025Potassium LevelOctober 2024 5:42amOctober 2024 5:42am4.2 mmol/L3.5-5.1Neutrophils # (Auto)March 20, 2025 5:42amOct2024 5:42am3.2 10 3/uL1.4-6.5Urine Squamous Epithelial CellsNovember 2024 7:00amFEW #/LPFAbnormal (applies to non-numeric results)NONE/RARESodium LevelOctober 2024 5:42amOctober 2024 5:40ud841 mmol/Y395-804 Neutrophils (%) (Auto)March 20, 2025 5:42amOctober 2024 5:42am59.3 % 43.0-75.0Urine UrobilinogenNovember 2024 7:00am0.2 EU/dL0.2-1.0Total BilirubinOctober 2024 5:42amOctober 2024 5:42am1.5 mg/dLAbove high normal0.2-1.0Platelet CountOctober 2024 5:42amOctober 2024 5:50ma720 10 3/zL703-437Ntwub WBCNovember 2024 7:00am>100 #/HPFAbnormal (applies to non-numeric results)NONE SEENTotal ProteinOctober 2024 5:42amOctober 2024 5:42am7.4 g/dL6.4-8.2Red Blood CountOctober 2024 5:42amOctober 2024 5:42am4.11 10 6/uLBelow low normal4.70-6.10Red Cell Distribution Width March 20, 2025 5:42amOctober 2024 5:42am12.3 %11.0-15.0Corrected White Blood CountOctober 2024 5:42amOctober 2024 5:42am5.4 10 3/uL4.0-11.0 Microbiology Results Procedure Source Result Collection Date/Time Result Date/Time Result Comment Performing Site Urine Culture Urine Enterobacter fay acae complex April 03, 2025 10:00am April 06, 2025 9:59am [facility] [id number] [address] [place] [address] Vital Signs Vital Reading Result Reference Range Collection Date/Time Height 69 [in_i] March 18, 2025 7:77zfSvywmy402.76 kgOctober 2024 7:13amHeart Kife682 /uvz60-659Seoknkt 2024 7:13amRespiratory rate20 /tby35-64Nsbmqut 2024 7:13amOxygen saturation by Pulse uryqnpvl47 %95-100October 2024 7:13amBP Tvyycrzw066 mm[Hg]100-140October 2024 7:13amBP Olublumme43 mm[Hg] 60-100October 2024 7:13amBMI (Body Mass Index)35.7 kg/t4Gslbtoe 2024 7:09onAfkape16 [in_i]April 03, 2025 8:63aeRgutnl790.31 kgOctpikeville medical center 2024 8:43amBody Uaufucvxcco90.9 [degF]97.6-99.0Octpikeville medical center 2024 8:43amHeart Rate 110 /ucs97-737Jmnuyml 2024 8:43amRespiratory rate18 /kbp72-76Eqxymiz 2024 8:43amOxygen saturation by Pulse yeygpbzj69 %95-100Octpikeville [facility] 2024 8:43amBP Aqqhblss954 mm[Hg]100-140Octpikeville [facility] 2024 8:43amBP Lwbpsoage10 mm[Hg] 60-100Octpikeville [facility] 2024 8:43amBMI (Body Mass Index)35.6 kg/v7Btwcqjf 2024 8:89wwGarovq39 [in_i]April 17, 2025 10:79ylFuxfyq059.86 kgNovbanner [facility] 2024 10:20amHeart Hijt916 /wgj80-226Pdhwstfi 2024 10:20amRespiratory rate 16 /gdp59-12Bkzcqydh 2024 10:20amOxygen saturation by Pulse omwekruy111 % 95-100Novbanner casa [facility] 2024 10:20amBP Dwrjvuvk636 mm[Hg]100-140Novbanner casa [facility] 2024 10:20amBP Xslwtiqmu57 mm[Hg]60-100Nov2024 10:20amBMI (Body Mass Index)35.4 kg/f0Fdeupedq 2024 10:02emRbmuns02 [in_i]April 25, 2025 8:78zjMkqtpm763.22 kgNovbanner casa [facility] center 2024 8:24amHeart Rate87 /pal45-101Ovrtdimf 20th, 2025 8:24amRespiratory rate20 /jqr53-25Szqqcmjl 20th, 2025 8:24amOxygen saturation by Pulse zugvppdn43 %95-100April 25, 2025 8:24amBP Lvdpinxy446 mm[Hg]100-140April 25, 2025 8:24amBP Pjjstyfjo95 mm[Hg]60-100April 25, 2025 8:24amBMI (Body Mass Index)35.9 kg/o0SmsbndffApril 25, 2025 8:27miUcnlhy89 [in_i]May 20, 2025 2:04ywIfkwmt787.77 kgDecemb2024 2:25pmBody Fitbtaenioo50.1 [degF]97.6-99.0December 2024 2:25pmHeart Ftcy359 /min -2024 2:25pmRespiratory rate20 /jib06-56Kavulthh 15th, 2025 2:25pmOxygen saturation by Pulse mlwchlaf09 %95-100[facility]2024 2:25pmBP Ibnigxbw605 mm[Hg]100-140ce2024 2:25pmBP Vsoenxgdq99 mm[Hg]60-100 May 20, 2025 2:25pmBMI (Body Mass Index)34.1 kg/u1Qnnqgmte2024 2:25pm Advance Directives Advance Directive Response Recorded Date/ Time Advance Directives No April 01, 2017 10:34am Insurance Providers Guarantor Bharathi Figueredo Address [address] [place], [place] [id number] Info.Home Phone: Coverage Status Update:2025 Payer Group Member ID Coverage Type Subscriber Relationship to Subscriber Effective Date Expiration Date MMO Retired Id: [id number] Lawrence , D Id: [id number] [address] [place], [place] [address] Home Phone: Email: Declined [id number] [id number] Olivas Id: [id number] [address] [place] [id number] Home Phone: Email: Declined [id number] Insurance [address] [facility] [address] Work Phone: Retired Id: [id number] Sourav Bharathi Id: [id number] [facility] [place] [address] Home Phone: Email: Declined [id number] Encounters Encounter Location(s) Arrival/Admit Date Discharge/Departure Date Discharge/Departure Disposition Provider(s) Departed Physician/ Provider Office Visit -[facility] [place] March 18, 2025 8:01am March 18, 2025 9:26am Discharged to home care or self care (routine discharge) Ivania Parada DO Non-patient / [facility]-visit [facility] 6[facility]42am GLORIA Adameparted Physician/Provider Office Visit-[facility] [place] April 03, 2025 9:40amOctober 2024 10:16amDischarged to home care or self care (routine discharge)Nicole Khan APRNDeparted Referred-[facility] 10:00amOctober 2024 10:01amDischarged to home care or self care (routine discharge)Nicole Khan APRNDeparted Physician/Provider Office Visit-[facility] 2024 10:13amNovember 2024 10:45amDischarged to home care or self care (routine discharge)PAUL Hamptoneparted Physician/Provider Office Visit-[facility] 2024 8:13amNovember 2024 9:00amDischarged to home care or self care (routine discharge)Tanvi Adam-patient / Wbm-jbrqn-[place] [facility] [facility] 2024 7:00Isabel Dumont MD Departed Physician/Provider Office Visit-[facility] Family Medicine [facility] 2024 2:21pmDeceer 2024 3:17pmDischarged to home care or self care (routine discharge)Ivania Parada , DO Recent Diagnosis Onset Date Admit Date [...] 2025 10:13 am Hypomagnesemia Unknown April 17, 2 025 10:13am Secondary hyperparathyroidism Unknown No vem2024 10:13am Tachycardia Unknown April 17, 2 025 10:13am Type 2 diabetes mellitus wit h diabetic chronic kidney disease Unknown April 17, 2025 10:13am BPH (benign prostatic hyperplasia) Unknown April 25, 2025 8:13am CKD (chronic kidney disease) stage 3, GFR 30-59 ml/min Unknown April 25, 2025 8:13am Hiatal hernia with GERD without esophagitis Unkn own April 25, 2025 8:13am Hypercholesteremia Unknown April 8:13am Hypertensive chronic kidney disease with stage 1 through stage 4 chronic ki Unknown April 25, 2025 8:13a m Hypomagnesemia Unknown April 25, 2 025 8:13am Tachycardia Unknown April 25, 2 025 8:13am Type 2 diabetes mellitus wit h diabetic chronic kidney disease Unknown April 25, 2025 8:13am Assessments Diagnosis Onset Date Resolution Status Admit [...] 4 chronic kiacuteNovember 2024 10:13amHypomagnesemiaacuteNovember 2024 10:13amSecondary hyperparathyroidismacuteNov2024 10:13amTachycardiaacuteNovember 2024 10:13amType 2 diabetes mellitus with diabetic chronic kidney disease acuteNovember 2024 10:13amBPH (benign prostatic hyperplasia)acuteNovember 2024 8:13amCKD (chronic kidney disease) stage 3, GFR 30-59 ml/minacute April 25, 2025 8:13amHiatal hernia with GERD without esophagitisacute April 25, 2025 8:13amHypercholesteremiaacuteNov2024 8:13am Hypertensive chronic kidney disease with stage 1 through stage 4 chronic kiacute April 25, 2025 8:13amHypomagnesemiaacuteNov2024 8:13am TachycardiaacuteNov2024 8:13amType 2 diabetes mellitus with diabetic chronic kidney diseaseacuteNov2024 8:13am Plan of Treatment Author Fernando Dumont [facility] HospitalAuthoredNovember 2024 9:17amHe has hypomagnesemia likely due to [...] benefit with SGLT 2 inhibitors including Farxiga, Jardiance Invokana. Will defer this to the PCP. [...] the metoprolol to twice daily. Author Ivania [facility] HospitalAutredOctober 2024 8:31amPatient currently taking metformin and not [...] return to clinic in 1 month. Author Ivania PatelOhio State East HospitalAuthoredNovember 2024 9:11amPatient currently taking glipizide 10mg daily; will add jardiance 10mg daily; recheck ha1c. Recently seen materials management supervisor; printed labs for him and faxed Renal ultrasound to [facility] for patient recheck mag level; thought to be due to renal disease, GI loss. Hopefully medication changes will help; continue oral supplement taking flomax, Does self cath; renal ultrasound ordered. taking omeprazole 20mg daily BP improved per patient, continue amlodipine, hctz, lisinopril, metoprolol HR 87 today, improved with increase of metprolol continue atorvastatin; recheck lipids. Start Jardiance for diabetes control; labs and ultrasound orders given/faxed; return to clinic 1 month Author Clara Encarnacion [facility] HospitalAuthoredOctober 2024 9:26amUA with moderate blood, moderate leukocytes. [...] Tests Test Name Ordered Date Scheduled Date US renal BI April 17, 2025 10:42am [facility] 20[facility] 8:19amComprehensive Metabolic PanelDeceer 2024 3:10pm Future Visits Future appointment information is unavailable Future Procedures Procedure Name Ordered Date Scheduled Date Dipstick and Microscopic April 17, 2025 10: 40am 1 Weeks Magnesium April 17, 2025 10:40am 1 We eks Magnesium March 18, 2025 8:19am [facility]Nov[facility] 2024 9:11amComplete Blood Count Auto DiffDecember 2024 3:10pmCreatinine Kinase MBDeceer 2024 3:14pmUrine Culture May 20, 2025 3:10pmMagnesium, Urine 24HrDecember 2024 3:10pm MagnesiumDecember 2024 3:10pmUrinalysisDecember 2024 3:10pm Future Medications Future medication information is unavailable Patient Instructions Patient instructions are unavailable
--- OUTSIDE RECORDS SUMMARY | 2025-05-27 07:40 | XMS_ITS | Clinical Summary ---
Author Organization [facility] Address [address] [place] [address] Phone Care Team Providers Care Pharmaceutical Detailer Name Role Phone Unavailable Primary Care Provider Unavailabl e Social History Tobacco UseTypesPacks/DayYears UsedDateSmoking Tobacco: Never AssessedSex and Gender InformationValueDate RecordedSex Assigned at BirthNot on fileLegal Sex Male04/30/2022 11:54 PM ESTGender IdentityNot on fileSexual OrientationNot on file Plan of Treatment Health MaintenanceDue DateLast DoneCommentsCT Nnqywhkktaac1954Colonoscopy 1955olorectal Cancer Trdurvhkr1954FIT-DNA (Cologuard)1955FIT 1955Lipid Panel1955Medicare Annual Wellness Visit (AWV)1955 Nubvpyonkulyk1954MMR Vaccines (1 of 1 - Standard series)1956 Hepatitis C Mrriwryzp79/09/1972DTaP/Tdap/Td Vaccines (1 - Tdap)1976 Pneumococcal Vaccine (1 [...]
--- OUTSIDE RECORDS SUMMARY | 2025-05-27 07:40 | XMS_ITS | Clinical Summary ---
Author Organization [facility] Address [address] [place] [address] Care Team Providers Care Medical Research Assistant Name Role Phone Jose Melchor MD Primary Care Provider [phone] Allergies Active AllergyReactionsCriticalityNoted DateCommentsCelecoxibAnxiety,UnknownLow 08/14/2024 Medications MedicationSigDispense [...] InformationValueDate RecordedSex Assigned at BirthNot on fileLegal XpnWepo8808/18/2022 6:34 PM EDTGender IdentityNot on file Sexual OrientationNot on file Last Filed Vital Signs Vital SignReadingTime TakenCommentsBlood Khskrcwz435/9410 12:00 PM EDT Pulse--Temperature--Respiratory Rate--Oxygen Saturation--Inhaled Oxygen Concentration--Mkdewx349 kg (253 lb)08/14/2024 2:01 PM JFCHhquwd745.3 cm (5' 9 ) 08/14/2024 2:01 PM EDTBody Mass Index37.36008/14/2024 2:01 PM EDT Plan of Treatment Not on file Insurance Care Teams Team MemberRelationshipSpecialtyStart DateEnd Jose Melchor MD [address] [place] [address] PCP - GeneralFamily Medicine07/18/24
--- OUTSIDE RECORDS SUMMARY | 2025-05-27 07:40 | XMS_ITS | Clinical Summary ---
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 Name Role Phone Unavailable Primary Care Provider Unavailabl e Allergies No known active allergies Medications No known medications Active Problems No known active problems Social History Tobacco UseTypesPacks/DayYears UsedDateSmoking Tobacco: Never AssessedSmokeless Tobacco: CurrentSex and Gender InformationValueDate RecordedSex Assigned at BirthNot on fileLegal ZvjYnvi9307/16/2012 6:17 PM ESTGender IdentityNot on file Sexual OrientationNot on file Last Filed Vital Signs Vital SignReadingTime TakenCommentsBlood Pressure--Pulse--Temperature-- Respiratory Rate--Oxygen Saturation--Inhaled Oxygen Concentration--Idtvtw31.8 kg (220 lb)08/09/2017 9:40 AM XKMQpapeg264.5 cm (5' 9.5 )08/09/2017 9:40 AM ESTBody Mass Index32.02008/09/2017 9:40 AM EST Plan of Treatment Not on file Insurance
--- NOTE | 2025-05-27 07:41 | CT_ITS ---
The [address] [address] Patient Name: ALICJA REYES MRN: [id number] date: 1955 Sex: M Assigned Patient Location: CT Current Patient Location: LAB Accession/Order Number: [id number] Exam Date: 05/27/2025 07:50 Report Date: 05/27/2025 10:43 At the request of: SUSAN VALE DO Procedure: CT abdomen pelvis wo con CT ABDOMEN AND PELVIS WITHOUT CONTRAST COMPARISON: 06/04/2023 CLINICAL DATA: Nausea, vomiting and dysuria. Chronic recurring urinary tract infections. Spiral axial unenhanced images were obtained through the abdomen and pelvis. This CT exam was performed using one or more following dose reduction techniques: Automated exposure control, adjustment of the mA and/or kV according to patient size, or use of iterative reconstruction technique. Limited cuts through the lung bases show minimal atelectasis or scarring. Evaluation of the intra-abdominal organs is slightly limited by the absence of contrast. No calcified gallstones are identified. No intrahepatic masses are seen. The spleen, pancreas and adrenal glands show no acute abnormalities. There is minor bilateral perinephric fibrofatty stranding. A 3 - 4 mm right mid to lower pole stone is again seen. No hydronephrosis is identified. No ureteral stones are noted. There may be slight urothelial thickening at the renal pelves and ureters. There is atherosclerotic plaque involving the aorta, iliac and proximal visceral arteries. No enlarged lymph nodes or ascites are seen. There is still apparent gastric wall thickening. The small bowel loops are normal caliber. There is mild stool along the colon. Colonic diverticula are visualized. There is S-shaped thoracolumbar scoliotic curvature along with degenerative change. Patient is status post laminectomy and fusion from L3 through S1. Images through the pelvis show normal caliber small bowel loops. No appendiceal inflammation is seen. There is a small amount of distal colonic stool. There are some additional colonic diverticula, without associated active inflammation. The prostate is not enlarged though it does contain calcifications. The urinary bladder is adequately distended and the wall is thickened. No intraluminal abnormalities are seen. There is no ascites. CT/CT abdomen pelvis wo con IMPRESSION: CONTINUED RIGHT NEPHROLITHIASIS. NO BOWEL OR URINARY TRACT OBSTRUCTION. DIVERTICULOSIS. UROTHELIAL THICKENING AT THE RENAL PELVIS AND URETERS BILATERALLY WELL WALL THICKENING AT THE URINARY BLADDER. THESE FINDINGS MAY RELATE TO THE REPORTED HISTORY OF INFECTION. CORRELATION IS SUGGESTED. Impression dictated by: Keiry Kelsey M.D. 05/27/2025 10:43 AM Dictation Location: [place] [address] Electronically authenticated by: [id number] Y Date: 05/27/2025 10:43
[2025-05-27 08:37] LABS: Hematocrit 36.0 % (42.0-54.0); Hemoglobin 11.9 g/dL (14.0-18.0); Immature Granulocytes Abs Auto 0.17 10^3/uL (0.00-0.03); Immature Granulocytes Pct Auto 1.8 % (0.0-0.5); Lymphocytes Absolute Auto 1.8 10^3/uL (1.2-3.8); Mean Corpuscular HGB Conc 33.1 g/dL (29.9-35.2); Mean Corpuscular Hemoglobin 31.2 pg (25.9-34.0); Mean Corpuscular Volume 94.5 fL (80.0-94.0); Platelet Count 485 10^3/uL (150-450); Red Blood Count 3.81 10^6/uL (4.70-6.10); White Blood Count 9.7 10^3/uL (4.0-11.0)
[2025-05-27 08:42] LABS: Glucose Urine UA 100 mg/dL (NEGATIVE)
[2025-05-27 09:09] LABS: Alanine Aminotransferase 31 U/L (16-63); Albumin Globulin Ratio 0.7; Albumin Level 3.2 g/dL (3.4-5.0); Alkaline Phosphatase 132 U/L (46-116); Anion Gap 15.5; Aspartate Amino Transferase 15 U/L (15-37); Blood Urea Nitrogen 34.0 mg/dL (7.0-18.0); Calcium 8.9 mg/dL (8.5-10.1); Carbon Dioxide 25.1 mmol/L (21.0-32.0); Chloride 98 mmol/L (98-107); Estimated GFR (African America 31 (>=60 mL/min/1.73m^2); Estimated GFR (Non-African Ame 25 (>=60 mL/min/1.73m^2); Globulin 4.4 g/dL; Glucose 305 mg/dL (74-106); Magnesium 1.0 mg/dL (1.8-2.4); Potassium 4.6 mmol/L (3.5-5.1); Sodium 134 mmol/L (136-145); Total Protein 7.6 g/dL (6.4-8.2)
== END 2025-05-27 07:36 | disposition home or self-care (01) ==
LOC: CT 07:36
PROVIDERS: PCP Family Medicine; Visit Provider Family Medicine
DX: N39.0 Urinary tract infection, site not specified (principal); E83.42 Hypomagnesemia; R11.2 Nausea with vomiting, unspecified; R53.1 Weakness; R50.9 Fever, unspecified; R30.0 Dysuria; K57.90 Diverticulosis of intestine, part unspecified, without perforation or abscess without bleeding; N20.0 Calculus of kidney
CPT/HCPCS: 36415; 74176; 80053; 81003; 82553; 83735; 85025; 87086

== ENCOUNTER 2025-05-28 08:22 | Inpatient (IN) | payer MEDICARE, OTHER, SELFPAY ==
--- OUTSIDE RECORDS SUMMARY | 2025-05-27 19:37 | XMS_ITS | Continuity of Care Document ---
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 Name Role Phone Karma Ivania DO Primary Care Provider Karma, Ivania DO Attending Provider Clara Encarnacion APRN Attending Provider Cammie Dumont [...] tart: April 25, 2025 End: April 25, 2025Kaelkierra Karma , DOAttending ProviderActiveStart: April 25, 2025 End: April 25, 2025 Visit Care Team Team Status: Active Member Role/Relationship Status Dates Ivania Karma , DO Primary Care Provider Active S tart: May 01, 2025 Fernando Dumont MDAtthieu ProviderActiveStart: May 01, 2025 Visit Care Team Team Status: Inactive Member Role/Relationship Status Dates Ivania Karma , DO Primary Care Provider Active S tart: May 20, 2025 End: May 20, 2025Kaelkierra Karma , DOAttending ProviderActiveStart: May 20, 2025 End: May 20, 2025 Patient Care Team Team Status: Inactive Member Role/Relationship Status Dates Ivania Parada , DO Attending Provider Active Star t: May 27, 2025 End: May 27, 2025 Patient Care Team Team Status: Active Member Role/Relationship Status Dates Ivania Karma , DO Primary Care Provider Active S tart: May 27, 2025 Ivania Karma , DOAttending ProviderActiveStart: May 27, 2025 Chief Complaint and Reason for Visit [...] chronic kidney disease April 25, 2025 8:13am Dysuria May 20, 2025 2:21pm Fever May 20, 2025 2:21pm Hypomagnesemia May 20, 2025 2:21pm Nausea and vomiting May 20, 2025 2:21pm Weakness May 20, 2025 2:21pm Reason for Referral Type Reason(s) Provider Provider Contact Information P rovider Address Start Date Referral to chief of safety and protection Nausea an d vomiting Hiatal hernia with gastroesophageal reflux disease without riqccvurwueX98.2 - Nausea with vomiting, unspecified,K44.9 - Diaphragmatic hernia without obstruction or gangrene,K21.9 - Gastro-esophageal reflux disease without esophagitisFPG GastroenterologyWork Phone: [phone] [facility] [address] [facility] [address] [address]24 Allergies, Adverse Reactions, Alerts Allergen Type Severity Reaction Last Updated Verified Status celecoxib Allergy Unknown Unknown Reaction May 20, 2025 2:25pm Yes Active Social History Smoking Status Status Start Date End Date Date of Observa tion Never smoked tobacco (finding) May 13, 2025 3:43pm Observation Status Observation Response Date of Response Legal Sex Male (finding) [facility] 1954 Family History Relationship Condition Age at [...] chronic kidney diseaseNovember 2024 10:42amUnknown ActiveCoughDecember 2024 2:36pmUnknownActiveDysuriaDecember 2024 3:32pmUnknownActiveHypercholesteremiaApril 2023 10:56amUnknownActive TachycardiaApril 2023 10:59amUnknownActiveHiatal hernia with GERD without esophagitisApril 2023 10:55amUnknownActiveWeaknessDeceer 2024 2:36pmUnknownActiveAcute UTIOctober 2024 9:24amUnknownActiveNausea and vomitingOct2024 8:19amUnknownActiveHypertensionApril 2023 10:58amUnknownActiveHypomagnesemiaOctober 2024 8:26amUnknownActive HypomagnesemiaOctober 2024 7:07amUnknownActiveInactive/Resolved Problems Problem Diagnosis/Recorded Date Onset [...] MG PO Daily 90 1March 20, 2025 11:00pmUnknownGlipizide 5 mg bigwlqTpvjktgvrmby5SKJXZbain486 April 08, 2025 12:00amNovember 2024 8:59amLevofloxacin 500 mg tablet Khiiakcsyoxg163AXCRJzjjf501Fuaqjaes 3rd, 2025 12:00amNovember 2024 10:21am Glipizide 10 mg lsfknfKlyywsbttvdq91OBYGNzpuk461Zavjkyhu 25th, 2025 2:54pm May 06, 2025 9:16amGlipizide 10 mg gjowpqQefphf45HJDLLbvbm538Tsxvbptm 1st, 2025 9:16amUnknownCyclobenzaprine 10 mg UsqagbZdldycufzreq46YJXCEgpdg times daily as needed for Muscle SpasmOctober 2016 11:00pmApril 2023 10:39amMetformin 500 mg JqmswaGsvhmytdupag826OLFQGtpgx dailyOctober 2016 11:00pmOctober 2024 8:17amdmOxycodone-Acetaminophen (Percocet) 5-325 mg DuywbjRwmqhefyevve2FPIHGZ66H as needed for PainOctober 2016 11:00pmApril 2023 10:40amEsomeprazole Magnesium (Nexium) 40 mg Capsule,Delayed Release(Dr/Ec)Ytbvikqzmqqf10OFJXEpwigSsfukhu 29th, 2017 11:00pmce2016 12:15pmgerdLisinopril-Hydrochlorothiazide 10-12.5 mg BplwttXnojetninfsb2YBO PODailyOct2016 11:00pmce2016 12:12pmhtnGabapentin (Neurontin) 100 mg SyelovrEhhcnnmabmsv952DXTCTlwdb times daily as needed for PainOctober 2016 11:00pmce2016 9:09amNaproxen Sodium (Aleve) 220 mg AxhbyjKravozagbyza976BVKPFmbcr dailyMay 13, 2017 12:00amce2016 12:56pmpainLisinopril-Hydrochlorothiazide 20-12.5 tabletDiscontinued1 TABPODaily2016 12:00amApril 2023 10:40amPantoprazole 40 MG tablet,delayed release (DR/EC)Sxbabchkkiyj73OSVGNsmghYxlhvfeh 13th, 2017 12:00am September 09, 2023 10:44amSennosides-Docusate Sodium (Dok Plus) 8.6-50 mg Tablet Iwuletephmob0YQMWYEihrp hoprr40782MbvkaflfMay 19, 2017 12:00amApril 2023 10:41amOxycodone-Acetaminophen 5-325 mg GgrupxOfqflhplwabv8FZVTJO9V as needed for Pain Scale 1 - 866908DsbbgzggMay 19, 2017 12:00amApril 2023 10:44am Fentanyl 25 mcg/hr Patch 72 NtxcFwbuzxkleoqy03NJCGFNADQQDDLMubrj 72 vigrq2486 May 19, 2017 12:00amApril 2023 10:39amFerrous Sulfate 324 mg (65 mg iron) Tablet,Delayed Release (Dr/Ec)Rogghsrefbiz064BALGEauhx qgjoy51834Uxbgsajg 14th, 2017 12:00amApril 2023 10:40amCephalexin (Keflex) 500 mg capsule Ujnrnbkgfqxt421YONJT3N1786Haqnjkem 2016 12:00amApril 2023 10:39am Amlodipine 5 mg thdbjzMawluglwbbla87SEBEHsmchGqshn 2023 11:00pmNov2024 10:40amGlipizide 5 mg gibnqqJsfelbcpvzzh7TVVGRqcnaMbtin 2023 11:00pmOctmeadowview regional medical center 2024 7:38amMagnesium Oxide 400 mg (241.3 mg magnesium) vrqirjAtmlyz355VQNISuxapGorjr 2023 11:00pmUnknownMetoprolol Succinate 25 mg tablet extended release 24 pjQznhvshorlfn86AMWPAuraaVnkda 2023 11:00pm April 17, 2025 10:40amOmeprazole 40 mg capsule,delayed release(DR/EC)Active 40MGPODailyApril 2023 11:00pmUnknownOndansetron 4 mg tablet,disintegrating Bbhmbzyhthnw5YPTGHROPQPHKVtehc 8 hours as needed for nauseaApril 2023 11:00pmOctmeadowview regional medical center 2024 7:39amPotassium Chloride 10 mEq capsule, extended iscqwyfCgqdxeofcseq26QKXGYZfggcHgzec 2023 11:00pmOctmeadowview regional medical center 2024 7:15am Hydrochlorothiazide 12.5 mg cfpdzsQjfmvg33.8YHDFOdegb289Wrkrxajp 12th, 2025 12:00amUnknownAmlodipine 5 mg fwvtvaUfrhvl0TQJKMfxqdRffhvxxk 2024 10:39am UnknownMetoprolol Succinate 25 mg tablet extended release 24 xiRhcrqzkhqrex59FX POTwice dailyApril 17, 2025 10:40amNovember 2024 10:40amMetoprolol Succinate 25 mg tablet extended release 24 mjFqseao07YMWFKusbj meuwo0969Xyufdzne 12th, 2025 10:40amUnknownAtorvastatin 40 mg noflsnRmwzbeydyhcj25QGFBFbjrxIfhrbnu 2024 11:00pmOctmeadowview regional medical center 2024 11:08amTamsulosin 0.4 mg capsuleActive0.4MG PODailyOctober 2024 11:00pmUnknownGabapentin 100 mg nrfdhstZfswlkxhmgxf195 MGPODaily at bedtimeOctmeadowview regional medical center 2024 11:00pmOctmeadowview regional medical center 2024 7:14amLisinopril 40 mg qzjnsdNdjjoc94FRTFQrwbuHqfzmfp 2024 11:00pmUnknownSemaglutide (Ozempic) 0.25 mg or 0.5 mg (2 mg/3 mL) pen injectorDiscontinued0.25MGSUBCUT every weekOctmeadowview regional medical center 2024 11:00pmOctmeadowview regional medical center 2024 7:15amfor 4 weeks Ondansetron 4 mg tablet,rskejlvaepgjscPjaakq7UJHSTztlh 8 hours as needed for nausea and obhnripa539Nvxrxib 2024 11:00pmUnknownEmpagliflozin (Jardiance) 10 mg zryhmcQqspuiynxdia98LTJXTkmlo240Gsuhydef 2024 12:00amDecember 2024 3:41pmGlipizide 10 mg lnjdroRlljttbfcwkv57JHCMTbkvj145Pvidjsdj 2024 8:58amNovember 2024 2:55pmAmoxicillin-Pot Clavulanate 500-125 mg tablet Zyfhuhrbokfk1MAEYVL3V57133Pxdpdie 2024 11:00pmNovember 2024 10:21am Ciprofloxacin Hcl (Cipro) 500 mg hqypaxZwvibh394JATAUqgur lswbg2716Qhfsyxaz 2024 12:00amUnknown Medical Equipment Device Date Implanted Device Details [place] Three Level Deformity May 18, 2017 CANCELLOUS 30CC CRUSHEDDecember 2016CROSSLINK CAPLOX II MED/LGDecember 2016INFUSE LARGE 8.0CCDecember 2016MAS PLIF INTERBODY NUVASIVE May 18, 2017MAS PLIF INTERBODY NUVASIVEDecember 2016NUVASIVE RELINE RODDecember 2016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December 2016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December 2016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December 2016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December 2016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December 2016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December , 2016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December , 2016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December , 2016NUVASIVE RELINE SET SCREWDecember , 2016NUVASIVE RELINE SET SCREWDecember , 2016NUVASIVE RELINE SET SCREWDecember 2016 NUVASIVE RELINE SET SCREWDecember , 2016NUVASIVE RELINE SET SCREWDecember , 2016NUVASIVE RELINE SET SCREWDecember , 2016NUVASIVE RELINE SET SCREW May 18, 2017NUVASIVE RELINE SET SCREWDecember 2016 Procedures Procedure Date Performed Status Urine Culture May 27, 2025 active Urine Culture April 03, 2025 completed Relevant Diagnostic Tests and/or Laboratory Data Laboratory Results Test Collection Date/Time Result Date/Time Result Interpretation Reference Range Result Comment Performing Site Estimated Average Glucose March 20, 2025 5:42am March 20, 2025 5:42am 171 mg/dL Cholesterol/HDL RatioOct2024 5:42amOctober 2024 5:42am3.03.3 - 4.4 LOW RISK4.4 - 7.1 AVERAGE RISK7.1 - 11.0 MODERATE RISK>11.0 HIGH RISK Magnesium LevelOctober 2024 5:42amOctober 2024 5:42am0.7 mg/dLBelow lower panic limits1.8-2.4RESULTS CALLED TO CALISTA CHAVIRA, CASSANDRAnion GapOctober 2024 5:42amOctober 2024 5:42am14.8Basophils # (Auto)March 20, 2025 5:42amOctober 2024 5:42am0.1 10 3/uL0.0-0.1Urine ColorOctober 2024 8:50amOctober 2024 9:00amyellowBedside GlucoseOctober 2024 9:10amOctober 2024 9:39mg253Hrevd Other CastsNovember 2024 7:00am NONE SEEN #/LPFNONE SEENUrine Random CreatinineNovember 5 7:00am May 01, 2025 7:00am33.14 mg/dL20.00-300.00Parathyroid Hormone (Intact) May 01, 2025 7:14amNove2024 7:14am26 pg/oR83-69Grumvevja at: CB - [facility] [address] [place], [place] [id number] Director: Abdullahi Gan PhD, Phone: [phone] Average GlucoseMay 01, 2025 7:14amNove2024 7:06ga442 mg/fX99-Yovdlqg Vitamin D TotalMay 01, 2025 7:14amNove2024 7:14am34.4 ng/mL<20 ng/mL Vit D ogejnipqk60-<30 ng/mL Vit D fupibphwlkfn69-933 ng/mL Vit D sufficient>100 ng/mL Potential ToxicityMagnesium LevelMay 01, 2025 7:14amNove2024 7:14am0.9 mg/dLBelow lower panic limits1.8-2.4RESULTS CALLED TO CALISTA CHAVIRA LPN at 0926Uric AcidMay 01, 2025 7:14amNove2024 7:14am5.7 mg/dL3.5-7.2Anion GapMay 01, 2025 7:14amNove2024 7:14am14.4 HematocritMay 01, 2025 7:14amNove2024 7:14am37.6 %Below low movjmd21.0-54.0POC SARS CoV-2 AntigenDecemb2024 2:35pmDecember 2024 2:41pmNegativeUrine BilirubinDecemb2024 8:06amDecemb2024 8:06amNEGATIVENEGATIVECreatine Kinase MBDecember 2024 8:13amDecemb2024 8:13am0.89 ng/mL<=3.60Magnesium LevelDecemb2024 8:13amDecember 2024 8:13am1.0 mg/dLBelow low normal1.8-2.4Anion GapDece2024 8:13amDecember 2024 8:13am15.5Basophils # (Auto)May 27, 2025 8:13am May 27, 2025 8:13am0.1 10 3/uL0.0-0.1Hemoglobin Y4rClxlfmq 2024 5:42amOctober 2024 5:42am7.6 %Above high normal4.5-6.2ADA RECOMMENDED LIMIT 4.0 - 6.0ADA THERAPEUTIC TARGET < 7.0ACTION SUGGESTED> 7.0Cholesterol LevelOctmeadowview regional medical center 2024 5:42amOctober 2024 5:85el032 mg/dL<=200 Albumin/Globulin RatioOctmeadowview regional medical center 2024 5:42amOctober 2024 5:42am1.1 Basophils (%) (Auto)March 20, 2025 5:42amOctober 2024 5:42am1.3 % 0.2-2.0Urine AppearanceOctmeadowview regional medical center 2024 8:50amOctmeadowview regional medical center 2024 9:00amcloudy Urine Other CrystalsMay 01, 2025 7:00amNone Seen #/HPFNone SeenUrine Protein/Creatinine RatioNove2024 7:00amNovember 2024 7:00am1.15 Hemoglobin M7pUcpgdehk 2024 7:14amNovember 2024 7:14am8.8 %Above high normal4.5-6.2ADA RECOMMENDED LIMIT 4.0 - 6.0ADA THERAPEUTIC TARGET < 7.0ACTION SUGGESTED> 7.0AlbuminNovember 2024 7:14amNovember 2024 7:14am3.3 g/dLBelow low normal3.4-5.0HemoglobinNovember 2024 7:14am May 01, 2025 7:14am12.9 g/dLBelow low .0-18.0Influenza Type A (Rapid)May 20, 2025 2:35pmDecember 2024 2:41pmNegativeUrine Occult BloodDecemb2024 8:06amDecember 2024 8:06amTRACE-INEGATIVE Albumin/Globulin RatioDece2024 8:13amDecember 2024 8:13am0.7 Basophils (%) (Auto)May 27, 2025 8:13amDecember 2024 8:13am0.8 % 0.2-2.0HDL CholesterolOct2024 5:42amOctober 2024 5:42am45 mg/dL 40-60> or =60 mg/dl - LOW CARDIOVASCULAR RISK<40 mg/dl - HIGH CARDIOVASCULAR RISKAlbuminOct2024 5:42amOctober 2024 5:42am3.8 g/dL3.4-5.0 Eosinophils # (Auto)March 20, 2025 5:42amOctober 2024 5:42am0.1 10 3/uL0.0-0.7Urine Glucose (UA)April 03, 2025 8:50amOctober 2024 9:00am 500mg/dLUrine BacteriaNovember 2024 7:00amLARGE #/HPFAbnormal (applies to non-numeric results)NONE SEENUrine Random Total ProteinNovember 2024 7:00amNovember 2024 7:00am38.0 mg/dLAbove high normal<=11.9BUN/Creatinine RatioNove2024 7:14amNovember 2024 7:14am12.6Mean Corpuscular HemoglobinNovember 2024 7:14amNovember 2024 7:14am32.5 pg25.9-34.0 Influenza Type B (Rapid)May 20, 2025 2:35pmDecember 2024 2:41pm NegativeUrine AppearanceDece2024 8:06amDecember 2024 8:06am CLEARCLEARAlbuminDecember 2024 8:13amDecember 2024 8:13am3.2 g/dL Below low normal3.4-5.0Eosinophils # (Auto)May 27, 2025 8:13amDecember 2024 8:13am0.3 10 3/uL0.0-0.7LDL Cholesterol, CalculatedOctober 2024 5:42amOctober 2024 5:42am68.2 mg/dL<100 mg/dl CXMWWGH521-428 mg/dl NEAR OR ABOVE QOWYLJA207-312 mg/dl BORDERLINE RNCQ398-701 mg/dl HIGH>190 mg/dl VERY HIGH Alkaline PhosphataseOctober 2024 5:42amOctober 2024 5:42am80 U/L 46-116Eosinophils (%) (Auto)March 20, 2025 5:42amOctober 2024 5:42am 2.4 %0.9-7.0Urine BilirubinOctober 2024 8:50amOctober 2024 9:00am negativeUrine BilirubinNovember 2024 7:00amNEGATIVENEGATIVEBlood Urea NitrogenNovember 2024 7:14amNovember 2024 7:14am23.0 mg/dLAbove high normal7.0-18.0Mean Corpuscular Hemoglobin ConcentNovember 2024 7:14am May 01, 2025 7:14am34.3 g/dL29.9-35.2Urine ColorDecember 2024 8:06amDecember 2024 8:06amLT YELLOWYELLOWAlkaline PhosphataseDecember 2024 8:13amDecember 2024 8:42ne150 U/LAbove high -955 Eosinophils (%) (Auto)May 27, 2025 8:13amDecember 2024 8:13am2.6 % 0.9-7.0Triglycerides LevelOctober 2024 5:42amOctober 2024 5:11lk685 mg/dL<=150Alanine Aminotransferase (ALT/SGPT)March 20, 2025 5:42amOct2024 5:42am27 U/H68-99GlsxwtavaoDqctneb 2024 5:42amOct2024 5:42am40.1 %Below low liozbt73.0-54.0Urine KetonesOctober 2024 8:50am April 03, 2025 9:00amnegativeUrine Occult BloodNovember 2024 7:00am SMALLAbnormal (applies to non-numeric results)NEGATIVECalcium LevelNovember 2024 7:14amNovember 2024 7:14am8.8 mg/dL8.5-10.1Mean Corpuscular VolumeNovember 2024 7:14amNovember 2024 7:14am94.7 fLAbove high tpnoss24.0-94.0Urine Glucose (UA)May 27, 2025 8:06amDecember 2024 8:34vo804 mg/dLAbnormal (applies to non-numeric results)NEGATIVEAlanine Aminotransferase (ALT/SGPT)May 27, 2025 8:13amDecemb2024 8:13am 31 U/S39-93OkdbtbrezxKoavqpzx 2024 8:13amDecember 2024 8:13am36.0 % Below low fesvse74.0-54.0VLDL CholesterolOct2024 5:42amOct2024 5:42am20.8 mg/dLAspartate Amino Transf (AST/SGOT)March 20, 2025 5:42am March 20, 2025 5:42am18 U/Y65-92PqpsfoxdhePjjseok 15th, 2025 5:42amOct2024 5:42am13.6 g/dLBelow low bqgxyk72.0-18.0Urine Specific GravityOctober 2024 8:50amOctober 2024 9:00am1.010Urine AppearanceNovember 2024 7:00amSL CLOUDYCLEARChloride LevelNovember 2024 7:14amNovember 2024 7:14am95 mmol/LBelow low qwybhe04-730Cnom Platelet VolumeNovember 2024 7:14amNovember 2024 7:14am9.6 fL9.5-13.5Urine KetonesDecember 2024 8:06amDecember 2024 8:06amNEGATIVE mg/dLNEGATIVEAspartate Amino Transf (AST/SGOT)May 27, 2025 8:13amDecember 2024 8:13am15 U/L15-37 HemoglobinDecember 2024 8:13amDecember 2024 8:13am11.9 g/dLBelow low gcauar11.0-18.0BUN/Creatinine RatioOctober 2024 5:42amOctober 2024 5:42am9.6Immature Granulocyte # (Auto)March 20, 2025 5:42amOctober 2024 5:42am0.02 10 3/uL0.00-0.03Urine Occult BloodOctober 2024 8:50am April 03, 2025 9:00ammoderateUrine ColorNovember 2024 7:00amLT. YELLOW YELLOWCarbon Dioxide LevelNovember 2024 7:14amNovember 2024 7:14am 27.5 mmol/L21.0-32.0Platelet CountNovember 2024 7:14amNovember 2024 7:57mt392 10 3/oN607-522Eqixp Leukocyte EsteraseDecember 2024 8:06am May 27, 2025 8:06amMODERATEAbnormal (applies to non-numeric results) NEGATIVEBUN/Creatinine RatioDecember 2024 8:13amDecember 2024 8:13am 13.5Immature Granulocyte # (Auto)May 27, 2025 8:13amDecember 2024 8:13am0.17 10 3/uLAbove high normal0.00-0.03Blood Urea NitrogenOctober 2024 5:42amOctober 2024 5:42am12.0 mg/dL7.0-18.0Immature Granulocyte % (Auto)March 20, 2025 5:42amOctober 2024 5:42am0.4 %0.0-0.5Urine pH April 03, 2025 8:50amOctober 2024 9:00am6.5Urine Glucose (UA)May 01, 2025 7:00amNEGATIVE mg/dLNEGATIVECreatinineNovember 2024 7:14am May 01, 2025 7:14am1.82 mg/dLAbove high normal0.70-1.30Red Blood Count May 01, 2025 7:14amNovember 2024 7:14am3.97 10 6/uLBelow low normal 4.70-6.10Urine NitriteDecember 2024 8:06amDecember 2024 8:06am NEGATIVENEGATIVEBlood Urea NitrogenDecember 2024 8:13amDecember 2024 8:13am34.0 mg/dLAbove high normal7.0-18.0Immature Granulocyte % (Auto)May 27, 2025 8:13amDecember 2024 8:13am1.8 %Above high normal0.0-0.5Calcium LevelOct2024 5:42amOctober 2024 5:42am8.7 mg/dL8.5-10.1 Lymphocytes # (Auto)March 20, 2025 5:42amOctober 2024 5:42am1.4 10 3/uL1.2-3.8Urine ProteinOct2024 8:50amOctober 2024 9:00am 30mg/dLUrine KetonesNovember 2024 7:00amNEGATIVE mg/dLNEGATIVEEstimated GFR ()May 01, 2025 7:14amNovemb2024 7:14am45 Below low normal>=60 mL/min/1.73m 2Red Cell Distribution WidthNovember 2024 7:14amNovember 2024 7:14am11.8 %11.0-15.0Urine pHDecember 2024 8:06amDecember 2024 8:06am6.05.0-9.0Calcium LevelDecember 2024 8:13amDecember 2024 8:13am8.9 mg/dL8.5-10.1Lymphocytes # (Auto)May 27, 2025 8:13amDecember 2024 8:13am1.8 10 3/uL1.2-3.8Chloride Level March 20, 2025 5:42amOctober 2024 5:96sz675 mmol/Y39-475Yayliocwgdc (%) (Auto)March 20, 2025 5:42amOctober 2024 5:42am25.0 %20.5-60.0Urine UrobilinogenOctober 2024 8:50amOctober 2024 9:00am0.2EU/dLUrine Leukocyte EsteraseNovember 2024 7:00amLARGEAbnormal (applies to non- numeric results)NEGATIVEEstimated GFR (Non- AmericanNovember 2024 7:14amNovember 2024 7:18eq81Rppzu low normal>=60 mL/min/1.73m 2Corrected White Blood CountNovember 2024 7:14amNovember 2024 7:14am10.8 10 3/uL4.0-11.0Urine ProteinDecember 2024 8:06amDecember 2024 8:06am NEGATIVE mg/dLNEG/TRACEChloride LevelDecember 2024 8:13amDecember 2024 8:13am98 mmol/F43-428Vlptsaadbvk (%) (Auto)May 27, 2025 8:13am May 27, 2025 8:13am18.3 %Below low zhttja22.5-60.0Carbon Dioxide Level March 20, 2025 5:42amOctober 2024 5:42am30.4 mmol/L21.0-32.0Mean Corpuscular HemoglobinOct2024 5:42amOctober 2024 5:42am33.1 pg 25.9-34.0Urine NitriteOctober 2024 8:50amOctober 2024 9:00amNegative Urine MucusNovember 2024 7:00amNONE SEENNONE SEENGlucose LevelNovember 2024 7:14amNovember 2024 7:33qr265 mg/dLAbove high spdaxn31-715Hilva Specific GravityDecemb2024 8:06amDecember 2024 8:06am<=1.005 Abnormal (applies to non-numeric results)1.005-1.025Carbon Dioxide LevelDecemb2024 8:13amDecember 2024 8:13am25.1 mmol/L21.0-32.0Mean Corpuscular HemoglobinDecemb2024 8:13amDecember 2024 8:13am31.2 pg25.9-34.0 CreatinineOct2024 5:42amOctober 2024 5:42am1.25 mg/dL0.70-1.30 Mean Corpuscular Hemoglobin ConcentOct2024 5:42amOctober 2024 5:42am33.9 g/dL29.9-35.2Urine Leukocyte EsteraseOctober 2024 8:50amOctober 2024 9:00ammoderateUrine NitriteNov2024 7:00amNEGATIVENEGATIVE Potassium LevelNovember 2024 7:14amNovember 2024 7:14am3.9 mmol/L 3.5-5.1Urine UrobilinogenDecember 2024 8:06amDecember 2024 8:06am0.2 EU/dL0.2-1.0CreatinineDecember 2024 8:13amDecember 2024 8:13am2.52 mg/dLAbove high normal0.70-1.30Mean Corpuscular Hemoglobin ConcentDecemb2024 8:13amDecember 2024 8:13am33.1 g/dL29.9-35.2Estimated GFR ()March 20, 2025 5:42amOctober 2024 5:42am>60>=60 mL/min/1.73m 2Mean Corpuscular VolumeOct2024 5:42amOctober 2024 5:42am97.6 fLAbove high unkiom26.0-94.0Urine pHNovember 2024 7:00am6.05.0-9.0Sodium LevelMay 01, 2025 7:14amNovember 2024 7:44ef044 mmol/LBelow low tftbro200-298Wipninihb GFR ()May 27, 2025 8:13amDecember 2024 8:76ce62Kfwsm low normal>=60 mL/min/1.73m 2Mean Corpuscular Volume May 27, 2025 8:13amDecember 2024 8:13am94.5 fLAbove high normal 80.0-94.0Estimated GFR (Non- AmericanOct2024 5:42amOctober 2024 5:12pv89Qlzdi low normal>=60 mL/min/1.73m 2Monocytes # (Auto)March 20, 2025 5:42amOctober 2024 5:42am0.6 10 3/uL0.3-0.8Urine Protein May 01, 2025 7:00amTRACE mg/dLNEG/TRACEPhosphorus LevelNovember 2024 7:14amNovember 2024 7:14am3.5 mg/dL2.6-4.7Estimated GFR ([facility]- [facility] 2024 8:13amDecember 2024 8:90zk00Gvkbd low normal >=60 mL/min/1.73m 2Monocytes # (Auto)May 27, 2025 8:13amDecember 2024 8:13am0.7 10 3/uL0.3-0.8GlobulinOctober 2024 5:42amOctober 2024 5:42am3.6 g/dLMonocytes (%) (Auto)March 20, 2025 5:42amOctober 2024 5:42am11.6 %1.7-12.0Urine RBCNovember 2024 7:26ye6-6 #/HPFAbnormal (applies to non-numeric results)0-2GlobulinDecember 2024 8:13amDecember 2024 8:13am4.4 g/dLMonocytes (%) (Auto)May 27, 2025 8:13amDecember 2024 8:13am7.6 %1.7-12.0Glucose LevelOctober 2024 5:42amOctober 2024 5:24uw410 mg/dLAbove high -188Glet Platelet VolumeOctober 2024 5:42amOctober 2024 5:42am9.7 fL9.5-13.5Urine Specific [place] May 01, 2025 7:00am<=1.005Abnormal (applies to non-numeric results) 1.005-1.025Glucose LevelDecember 2024 8:13amDecember 2024 8:89ih716 mg/dLAbove high wtiufi35-595Bcba Platelet VolumeDecember 2024 8:13am May 27, 2025 8:13am9.0 fLBelow low normal9.5-13.5Potassium LevelOctober 2024 5:42amOctober 2024 5:42am4.2 mmol/L3.5-5.1Neutrophils # (Auto) March 20, 2025 5:42amOctober 2024 5:42am3.2 10 3/uL1.4-6.5Urine Squamous Epithelial CellsNovember 2024 7:00amFEW #/LPFAbnormal (applies to non-numeric results)NONE/RAREPotassium LevelDecember 2024 8:13amDecember 2024 8:13am4.6 mmol/L3.5-5.1Neutrophils # (Auto)May 27, 2025 8:13am May 27, 2025 8:13am6.7 10 3/uLAbove high normal1.4-6.5Sodium LevelOctober 2024 5:42amOctober 2024 5:68xn271 mmol/S830-717Gfsladmdcyz (%) (Auto)March 20, 2025 5:42amOctober 2024 5:42am59.3 %43.0-75.0Urine UrobilinogenNovember 2024 7:00am0.2 EU/dL0.2-1.0Sodium LevelDecember 2024 8:13amDecember 2024 8:86ez223 mmol/LBelow low kloiwx553-664 Neutrophils (%) (Auto)May 27, 2025 8:13amDecember 2024 8:13am68.9 % 43.0-75.0Total BilirubinOctober 2024 5:42amOctober 2024 5:42am1.5 mg/dLAbove high normal0.2-1.0Platelet CountOctober 2024 5:42amOctober 2024 5:96fg614 10 3/fE986-470Qegbi WBCNovember 2024 7:00am>100 #/HPF Abnormal (applies to non-numeric results)NONE SEENTotal BilirubinDecember 2024 8:13amDecember 2024 8:13am0.6 mg/dL0.2-1.0Platelet CountDecember 2024 8:13amDecember 2024 8:20qj119 10 3/uLAbove high xqnawf736-767 Total ProteinOctober 2024 5:42amOctober 2024 5:42am7.4 g/dL6.4-8.2 Red Blood CountOctober 2024 5:42amOctober 2024 5:42am4.11 10 6/uL Below low normal4.70-6.10Total ProteinDecember 2024 8:13amDecember 2024 8:13am7.6 g/dL6.4-8.2Red Blood CountDecember 2024 8:13amDecember 2024 8:13am3.81 10 6/uLBelow low normal4.70-6.10Red Cell Distribution WidthOctober 2024 5:42amOctober 2024 5:42am12.3 %11.0-15.0Red Cell Distribution WidthDecember 2024 8:13amDecember 2024 8:13am12.2 % 11.0-15.0Corrected White Blood CountOctober 2024 5:42amOctober 2024 5:42am5.4 10 3/uL4.0-11.0Corrected White Blood CountDecember 2024 8:13am May 27, 2025 8:13am9.7 10 3/uL4.0-11.0 Microbiology Results Procedure Source Result Collection Date/Time Result Date/Time Result Comment Performing Site Urine Culture Urine Enterobacter fay acae complex April 03, 2025 10:00am April 06, 2025 9:59am [facility] [id number] [address] [place] [id number] Vital Signs Vital Reading Result Reference Range Collection Date/Time Height 69 [in_i] March 18, 2025 7:19dgBsyymf001.76 kgOctober 2024 7:13amHeart Lvjj798 /ksa16-979Plrwphg 2024 7:13amRespiratory rate20 /bso39-37Dusfdrv 2024 7:13amOxygen saturation by Pulse utjxrcqm21 %95-100October 2024 7:13amBP Opxvhfwx141 mm[Hg]100-140[facility] 20[facility] 7:13amBP Asrryttrp74 mm[Hg] 60-100October 2024 7:13amBMI (Body Mass Index)35.7 kg/l9Kphgxyv 2024 7:16fyEhftql31 [in_i]April 03, 2025 8:99mhXhtqym349.31 kgOctmeadowview [facility] 2024 8:43amBody Nanykifkjut86.9 [degF]97.6-99.0Oct[facility] 2024 8:43amHeart Rate 110 /kyp46-248Evwwpno 2024 8:43amRespiratory rate18 /bjf97-20Kcwvdia 2024 8:43amOxygen saturation by Pulse %95-100Oct[facility] 2024 8:43amBP Uzzrlpco194 mm[Hg]100-140Octmeadowview [facility] 2024 8:43amBP Xzopvxrth26 mm[Hg] 60-100Octmeadowview [facility] 2024 8:43amBMI (Body Mass Index)35.6 kg/d5Lcrcyss 2024 8:35wxGgflje61 [in_i]April 17, 2025 10:49lmYfxzar079.86 kgNovquail run behavioral health 2024 10:20amHeart Mzin182 /pqh75-510Jgtwnykv 2024 10:20amRespiratory rate 16 /omw82-25Azowuvib 2024 10:20amOxygen saturation by Pulse % 95-100[facility] 2024 10:20amBP Ekuuuhax186 mm[Hg]100-140[facility] 2024 10:20amBP Xvuddafpj40 mm[Hg]60-100[facility] 2024 10:20amBMI (Body Mass Index)35.4 kg/n1Lrygwiao 2024 10:49miOxgrqb20 [in_i]April 25, 2025 8:17enDchvyy361.22 kgB[facility] 2024 8:24amHeart Rate87 /oqx91-653Egqwmydp 20th, 2025 8:24amRespiratory rate20 /vwp09-54Fzrmeqak 20th, 2025 8:24amOxygen saturation by Pulse jvtxrulf95 %95-100April 25, 2025 8:24amBP Ywlnvugh490 mm[Hg]100-140April 25, 2025 8:24amBP Ahazibrde33 mm[Hg]60-100April 25, 2025 8:24amBMI (Body Mass Index)35.9 kg/j8EszlhglmApril 25, 2025 8:74doOnfoms94 [in_i]May 20, 2025 2:42glAhypeq329.77 kgDecember 2024 2:25pmBody Dnjubqcfgvo41.1 [degF]97.6-99.0December 2024 2:25pmHeart Gdlx623 /min 60-100cemb2024 2:25pmRespiratory rate20 /mlx22-86Qgqleyfb 15th, 2025 2:25pmOxygen saturation by Pulse ojrecdcj51 %95-100ce2024 2:25pmBP Zkytcryl983 mm[Hg]100-140ce2024 2:25pmBP Vsvjceveq29 mm[Hg]60-100 May 20, 2025 2:25pmBMI (Body Mass Index)34.1 kg/a4Ttrzmilo 2024 2:25pm Advance Directives Advance Directive Response Recorded Date/ Time Advance Directives No April 01, 2017 10:34am Insurance Providers Guarantor Bharathi Figueredo Address [address] [place], [place] [id number] Info.Home Phone: Coverage Status Update:2025 Payer Group Member ID Coverage Type Subscriber Relationship to Subscriber Effective Date Expiration Date MMO Retired Id: [id number] Lawrence , D Id: [id number] [address] [place], [place] [id number] Home Phone: Email: [facility] [id number] [id number] Olivas Id: [id number] [address] [place], [place] [id number] Home Phone: Email: Declined [id number] Insurance [address] [facility] [address] Work Phone: Retired Id: [id number] Bharathi Benjamin Id: [id number] [facility] [place] [address] Home Phone: Email: Declined [id number] Encounters Encounter Location(s) Arrival/Admit Date Discharge/Departure Date Discharge/Departure Disposition Provider(s) Departed Physician/ Provider Office Visit -[facility] [place] March 18, 2025 8:01am March 18, 2025 9:26am Discharged to home care or self care (routine discharge) Ivania Parada DO Non-patient / Non-visit -[facility] Professional [facility] 2024 6:42am GLORIA Adameparted Physician/Provider Office Visit-[facility] [place] April 03, 2025 9:40amOctober 2024 10:16amDischarged to home care or self care (routine discharge)Nicole Khan APRNDeparted [facility]erred-[facility] 2024 10:00amOctober 2024 10:01amDischarged to home care or self care (routine discharge)Nicole Khan APRNDeparted Physician/Provider Office Visit-[facility] 2024 10:13amNovember 2024 10:45amDischarged to home care or self care (routine discharge)PAUL Hamptoneparted Physician/Provider Office Visit-[facility] Family Medicine [facility] 2024 8:13amNovember 2024 9:00amDischarged to home care or self care (routine discharge)Tanvi Adam-patient / Cto-ttiyi-[facility] 2024 7:00Isabel Dumont MD Departed Physician/Provider Office Visit-[facility] Family Medicine [facility] 2024 2:[facility]pm[facility] [place] 2024 3:17pmDischarged to home care or self care (routine discharge)GLORIA Adamepcastillo Referred-[facility] [place] 2024 8:06amDecember 2024 8:07amDischarged to home care or self care (routine discharge)Tanvi Adam-patient / Eoa-eodap-[facility] [place] 2024 8:13amIvania Parada , DO Recent Diagnosis Onset Date [...] 17, 025 10:13am Secondary hyperparathyroidism Unknown No vem2024 [...] April 25, 2 025 8:13am Tachycardia Unknown November 20th, 2 025 8:13am Type 2 diabetes mellitus wit h diabetic chronic kidney disease Unknown April 25, 2025 8:13am Dysuria Unknown May 20, 2 025 2:21pm Fever Unknown May 20, 2 025 2:21pm Hypomagnesemia Unknown May 20, 2 025 2:21pm Nausea and vomiting Unknown May 2:21pm Weakness Unknown May 20, 2 025 2:21pm Assessments Diagnosis Onset Date Resolution Status Admit Date BPH (benign prostatic hyperplasia) acuteOctme[facility] 2024 8:01amDiabetesacuteOctmeadowview regional medical [facility] 2024 8:01amElevated PSA measurementacuteOctmeadowview regional medical center 2024 8:01amHiatal hernia with GERD without esophagitisacuteOctmeadowview regional medical center 2024 8:01amHypercholesteremiaacuteOctmeadowview regional medical [facility] 2024 8:01amHypertensionacuteOctmeadowview regional medical [facility] 2024 8:01amHypomagnesemiaacuteOctmeadowview regional medical center 2024 8:01amKidney diseaseacuteOctmeadowview regional medical center 2024 8:01amNausea and vomiting [facility] 8:01amAcute UTIacuteOctmeadowview regional medical center 2024 9:40amBPH (benign prostatic hyperplasia)acuteNovquail run [facility] 2024 10:13amCKD (chronic kidney disease) stage 3, GFR 30-59 ml/minacuteB[facility]ist [facility] 2024 10:13amHypertensive chronic kidney disease with stage 1 through stage 4 chronic k[facility]uteB[facility] 2024 10:13amHypomagnesemiaacuteNovquail [facility] 2024 10:13amSecondary hyperparathyroidismacuteBaptist Health [facility] 2024 10:13amTachycardiaacuteBaptist Health [facility] 2024 10:13amType 2 diabetes mellitus with diabetic chronic kidney disease acuteNov2024 10:13amBPH (benign prostatic hyperplasia)acuteNov2024 8:13amCKD (chronic kidney disease) stage 3, GFR 30-59 ml/minacute April 25, 2025 8:13amHiatal hernia with GERD without esophagitisacute April 25, 2025 8:13amHypercholesteremiaacuteSand[facility]20[facility] 8:13am Hypertensive chronic kidney disease with stage 1 through stage 4 chronic kiacute April 25, 2025 8:13amHypomagnesemiaacuteSandhills [facility]2024 8:13am TachycardiaacuteApril 25, 2025 8:13amType 2 diabetes mellitus with diabetic chronic kidney diseaseacuteApril 25, 2025 8:13amDysuriaacuteDecember 2024 2:21pmFeveracuteDecember 2024 2:21pmHypomagnesemiaacuteDece2024 2:21pmNausea and vomitingacuteDece2024 2:21pmWeaknessacute May 20, 2025 2:21pm Plan of Treatment Author Fernando Dumont [facility] 2024 9:17amHe has hypomagnesemia likely due to [...] metoprolol to twice daily. Author Ivania Parada [facility] 2024 8:31amPatient currently taking metformin and not [...] to clinic in 1 month. Author Ivan[facility] 2024 9:11amPatient currently taking glipizide 10mg daily; will add jardiance 10mg daily; recheck ha1c. Recently seen commercial real estate sales manager; printed labs for him and faxed Renal ultrasound to [facility] for patient recheck mag level; thought [...] to clinic 1 month Author Clara Encarnacion [place] [facility] HospitalAuthoredOctober 2024 9:26amUA with moderate blood, moderate [...] Will cx urine and call with results Author Ivania Parada [facility]ger 2024 3:43pmphosphorus, calcium and potassium levels all normal; PTH normal. Patient taking oral replacement but remains very low despite. Concern for GI wasting. I have ordered Urine magnesium level to assess renal wasting. He is suppose to see GI doctor this week for colon and gastric work up. Taking PPI still. off Metformin. Acute UTI? Will sent for labs and urine work up. Covid, influenza testing negative. Check CK level. from constipation? or electrolyte disfunction? Or GERD/gastritis? Will also check CT abd/pelvis without contrast due to renal function viral testing negative. Check urine studies, possible UTI? check CBC, UA and culture. Will place on cipro 500mg BID x 7 days. CrCl 55 Go to ER with any worsening signs or symptoms. Have lab testing completed. Future Tests Future scheduled test information is unavailable Pending Tests Test Name Ordered Date Scheduled Date Urine Culture May 27, 2025 8:06am US renal BINovember 2024 10:42amComprehensive Metabolic PanelOctober 2024 8:19amComprehensive Metabolic PanelDecember 2024 3:10pmCT abdomen pelvis wo conDecember 2024 3:41pm Future Visits Future appointment information is unavailable Future Procedures Procedure Name Ordered Date Scheduled Date Urine Culture May 27, 2025 1:02pm Decem yanick 2024 8:06am Dipstick and Microscopic April 17, 2025 10: 40am 1 Weeks Magnesium April 17, 2025 10:40am 1 We eks Magnesium March 18, 2025 8:19am Lipid PanelNovember 2024 9:11amUrine CultureDeceer 2024 3:10pm Magnesium, Urine 24HrDecember 2024 3:10pmMagnesiumDecember 2024 3:10pmUrinalysisDecember 2024 3:10pm Future Medications Future medication information is unavailable Patient Instructions Patient instructions are unavailable
--- NOTE | 2025-05-28 08:30 | PC.NURSE ---
RN brought patient back to room 10 to be triaged. pt and family member states that they are supposed to a direct admit for IV antibiotics. Dr Vásquez reaching out ordering physician. will continue plan of are
[2025-05-28 09:06] VITALS: BP 135/75; PULSE 87; TEMP 37.1; O2SAT 99; BMI 34.6
--- OUTSIDE RECORDS SUMMARY | 2025-05-28 09:37 | XMS_ITS | Clinical Summary ---
Author Organization [facility] Address [address], [address] [place] [address] Care Team Providers Care District Court Justice Name Role Phone Unavailable Primary Care Provider Unavailabl e Allergies No known active allergies Medications No known medications Active Problems No known active problems Social History Tobacco UseTypesPacks/DayYears UsedDateSmoking Tobacco: Never AssessedSmokeless Tobacco: CurrentSex and Gender InformationValueDate RecordedSex Assigned at BirthNot on fileLegal EnmMqll6307/16/2012 6:17 PM ESTGender IdentityNot on file Sexual OrientationNot on file Last Filed Vital Signs Vital SignReadingTime TakenCommentsBlood Pressure--Pulse--Temperature-- Respiratory Rate--Oxygen Saturation--Inhaled Oxygen Concentration--Bqorob76.8 kg (220 lb)08/09/2017 9:40 AM KYMVevpax446.5 cm (5' 9.5 )08/09/2017 9:40 AM ESTBody Mass Index32.02008/09/2017 9:40 AM EST Plan of Treatment Not on file Insurance
--- OUTSIDE RECORDS SUMMARY | 2025-05-28 09:37 | XMS_ITS | Clinical Summary ---
Author Organization [facility] Address [address] [place] [address] Phone Care Team Providers Care Nurse First Aid Name Role Phone Unavailable Primary Care Provider Unavailabl e Social History Tobacco UseTypesPacks/DayYears UsedDateSmoking Tobacco: Never AssessedSex and Gender InformationValueDate RecordedSex Assigned at BirthNot on fileLegal Sex Male04/30/2022 11:54 PM ESTGender IdentityNot on fileSexual OrientationNot on file Plan of Treatment Health MaintenanceDue DateLast DoneCommentsCT Cknnchafbigf1955Colonoscopy 1955olorectal Cancer Posqinbdj1954FIT-DNA (Cologuard)1955FIT 1955Lipid Panel1955Medicare Annual Wellness Visit (AWV)1955 Ktfjlwsblnvat1955MMR Vaccines (1 of 1 - Standard series)1956 Hepatitis C Araampxkz22/09/1972DTaP/Tdap/Td Vaccines (1 - Tdap)1976 Pneumococcal Vaccine (1 [...]
--- OUTSIDE RECORDS SUMMARY | 2025-05-28 09:37 | XMS_ITS | Clinical Summary ---
Author Organization [facility] Address [address] [place] [address] Care Team Providers Care Cutting Department Supervisor Name Role Phone Jose Melchor MD Primary Care Provider [phone] Allergies Active AllergyReactionsCriticalityNoted DateCommentsCelecoxibAnxiety,UnknownLow 08/14/2024 Medications MedicationSigDispense [...] InformationValueDate RecordedSex Assigned at BirthNot on fileLegal SagPdmd0008/18/2022 6:34 PM EDTGender IdentityNot on file Sexual OrientationNot on file Last Filed Vital Signs Vital SignReadingTime TakenCommentsBlood Bgxszmqv602/9410 12:00 PM EDT Pulse--Temperature--Respiratory Rate--Oxygen Saturation--Inhaled Oxygen Concentration--Bhlplc192 kg (253 lb)08/14/2024 2:01 PM WQUQjzikl849.3 cm (5' 9 ) 08/14/2024 2:01 PM EDTBody Mass Index37.36008/14/2024 2:01 PM EDT Plan of Treatment Not on file Insurance Care Teams Team MemberRelationshipSpecialtyStart DateEnd Jose Melchor MD [address] [place] [address] PCP - GeneralFamily Medicine07/18/24
--- OUTSIDE RECORDS SUMMARY | 2025-05-28 09:37 | XMS_ITS | Clinical Summary ---
Author Organization [facility] Address [facility] [place] [address] Care Team Providers Care Administration Professional Name Role Phone Cori Mcgrath MD Primary Care Provider [phone] Social History Tobacco UseTypesPacks/DayYears UsedDateSmoking Tobacco: Never AssessedChildcare AnswerDate LyjidhpkBauvwqddsQpkqzod62/12/2019EmploymentAnswerDate Recorded CdpsokhcaxMzesyws97/12/2019Purpose - LifeAnswerDate RecordedPurpose and direction in qyphQdgtwnk31/11/2021ex and Gender InformationValueDate Recorded Sex Assigned at BirthNot on fileLegal MmdBwpw2401/09/2015 12:04 PM EDTGender IdentityNot on fileSexual OrientationNot on file Plan of Treatment Health MaintenanceDue DateLast DoneCommentsDepression Jminbqofx18/09/1966Tobacco Jqqhuwehi49/09/1966Adult BMI Pgwlqwiam53/09/1972DTaP,Tdap and Td Vaccines (1 - Tdap)1973Zoster (Shingles) Vaccine (1 of 2)2004Fall Risk Screening 2019COVID-19 Vaccine ( season)/, 03/16/2023, 04/05/2022, Additional history existsInfluenza Outlzlv77/, 03/16/2023, 04/05/2022, Additional history existsRSV ( or age 60+ yrs) (1 - 1-dose 75+ series)2029 [employer] Not on file Insurance Care Teams Team MemberRelationshipSpecialtyStart DateEnd Cori Mcgrath MD PCP - GeneralFamily Medicine02/27/18
[2025-05-28 09:57] LABS: Hematocrit 34.7 % (42.0-54.0); Hemoglobin 11.7 g/dL (14.0-18.0); Immature Granulocytes Abs Auto 0.10 10^3/uL (0.00-0.03); Immature Granulocytes Pct Auto 1.3 % (0.0-0.5); Lymphocytes Absolute Auto 1.5 10^3/uL (1.2-3.8); Mean Corpuscular HGB Conc 33.7 g/dL (29.9-35.2); Mean Corpuscular Hemoglobin 31.7 pg (25.9-34.0); Mean Corpuscular Volume 94.0 fL (80.0-94.0); Platelet Count 392 10^3/uL (150-450); Red Blood Count 3.69 10^6/uL (4.70-6.10); White Blood Count 7.5 10^3/uL (4.0-11.0)
[2025-05-28 09:59] LABS: Anion Gap 11.9; Blood Urea Nitrogen 32.0 mg/dL (7.0-18.0); Calcium 8.6 mg/dL (8.5-10.1); Carbon Dioxide 26.3 mmol/L (21.0-32.0); Chloride 100 mmol/L (98-107); Estimated GFR (African America 32 (>=60 mL/min/1.73m^2); Estimated GFR (Non-African Ame 27 (>=60 mL/min/1.73m^2); Glucose 363 mg/dL (74-106); Sodium 133 mmol/L (136-145)
[2025-05-28] MEDS: 0.9 % SODIUM CHLORIDE 1,000 ML 999 ML IV (10:00)
[2025-05-28] MEDS: PIPERACILLIN SODIUM/TAZOBACTAM 4.5 GM in 0.9 % SODIUM CHLORIDE 50 ML IV (10:01)
[2025-05-28 10:10] LABS: Potassium 5.2 mmol/L (3.5-5.1)
[2025-05-28 11:07] VITALS: BP 160/92; PULSE 78; TEMP 36.6; O2SAT 98; BMI 34.6
--- NOTE | 2025-05-28 11:13 | ECG_ITS ---
[facility] Test Date: 2025-05-28 Pat Name: ALICJA REYES Department: Room: 2181 Gender: Male Charge Accounts Audit Clerk: : 1955 Requested By: Order Number: [id number] Reading MD: LAUREN GLASS M.D. Measurements Intervals [place] Rate: 83 P: 35 WV: 178 QRS: 16 QRSD: 92 T: 18 QT: 340 QTc: 400 Interpretive Statements SINUS RHYTHM LOW QRS VOLTAGE IN PRECORDIAL LEADS [QRS DEFLECTION < 1.0 mV IN CHEST LEADS] ANTEROSEPTAL MYOCARDIAL INFARCTION [40+ ms Q WAVE IN V1-V4], OF INDETERMINATE AGE Abnormal ECG Compared to ECG 08/24/2024 07:35:37 No significant changes Electronically Signed On 05-29-2025 11:41:20 EST by LAUREN GLASS M.D.
[2025-05-28] MEDS: INSULIN ASPART 300 UNIT/3 ML PEN SUBQ ×3 (11:34→21:59)
[2025-05-28] MEDS: 0.9 % SODIUM CHLORIDE 1,000 ML 100 ML IV ×2 (11:34→21:58)
--- NOTE | 2025-05-28 12:28 | PM.HP ---
HPI H&P: HPI History of Present Illness Chief complaint: back pain UTI PAMELA Narrative: Mr. Benjamin is a 70-year-old gentleman with a known history of neurogenic bladder. Patient self caths himself 3 times a day. He is able to urinate small amount in between. Patient has been battling intermittent bladder infection for a while. Last week, his urine was cloudy. He took Cipro and his urine cleared up. He visited his primary care doctor here yesterday. Blood work was completed showed worsening kidney failure CAT scan of the abdomen showed no obstructive uropathy but positive for bladder wall thickening. Patient was instructed by his primary care doctor to come to the emergency room and be admitted for recurrent UTI and PAMELA. Patient is feeling well at this time. No fever or chills. No chest pain palpitation. Opioid HPI Opioid Management Most Recent Pain and Opioid Data: Last Pain Scale 3 Today, 09:06 Last Pain Assessment Today, 12:00 Last ORT Total Score 0 Today, 11:07 Last ORT Risk Category Low Risk Today, 11:07 PFSH PFSH Medical History (Updated 05/28/25 @ 10:19 by JESUS GEORGE) Carpal tunnel syndrome ?G56.00 - Carpal tunnel syndrome, unspecified upper limb (ICD-10) Surgical History (Updated 05/28/25 @ 10:19 by JESUS GEORGE) H/O elbow surgery ?Z98.890 - Other specified postprocedural states (ICD-10) H/O spinal fusion ?Z98.1 - Arthrodesis status (ICD-10) Social History (Updated 05/28/25 @ 10:21 by JESUS GEORGE) Within the past year, how often did you have a drink containing alcohol: 4 or more times a week Within the past year, how many standard drinks containing alcohol did you have on a typical day: 3 or 4 Within the past year, how often did you have six or more drinks on one occasion: weekly Total score: 5 Score interpretation: A score of 4 or more indicates drinking is likely to affect patient's safety. Smoking status: Former smoker Highest level of school completed/degree received: Associate degree: occupational, technical, vocational program Little interest or pleasure in doing things: not at all Feeling down, depressed, or hopeless: not at all Meds Home Medications and Allergies Home Medications ?Medication ?Instructions ?Recorded ?Confirmed ?Type atorvastatin 20 mg tablet 40 mg PO DAILY 05/23/23 05/28/25 History amlodipine 5 mg tablet 5 mg PO DAILY 01/31/24 05/28/25 History lisinopril 40 mg tablet 40 mg PO DAILY 01/31/24 05/28/25 History magnesium oxide 500 mg capsule 500 mg PO TID #30 caps 08/24/24 05/28/25 Rx glipizide 5 mg tablet mg 05/28/25 History hydrochlorothiazide 12.5 mg tablet 12.5 mg PO DAILY 05/28/25 05/28/25 History metoprolol succinate 25 mg mg PO 05/28/25 History tablet,extended release 24 hr omeprazole 20 mg capsule,delayed mg 05/28/25 History release tamsulosin 0.4 mg capsule 0.4 mg PO .qhs 05/28/25 05/28/25 History Allergies Allergy/AdvReac Type Severity Reaction Status Date / Time No Known Drug Allergies Allergy Verified 05/28/25 09:06 Exam Narrative Exam Narrative: [pt is awake and alert. oriented to place, time and person HEENT: [place] conjunctiva and NL buccal mucosa Neck: Supple, no tenderness Endocrine: No Thyromegaly. Vascular: No JVD or carotid bruit. Lymphatic: No cervical lymphadenopathy. Chest: CTA no DTP. Heart RRR, no extra sound or murmur. Abd: Soft, no tenderness, no rebound and no rigidity. Central obesity, increase abd girth therefore clinically I could not exclude the possibility of intra abd mass or organomegaly. LE: No cyanosis or clubbing, no varices or edema. Neuro: A A O. Nl speech, comprehension and attention. Nl and symetrical motor and tone examination through out. []] Constitutional Vital Signs, click to edit/add: Last Vital Signs Temp 97.8 F 05/28/25 11:07 Pulse 78 05/28/25 11:07 Resp 18 05/28/25 11:07 BP 160/92 H 05/28/25 11:07 Pulse Ox 98 05/28/25 11:07 O2 Del Method Room Air 05/28/25 11:07 Results Labs Labs: Short CBC 05/28/25 Range/Units 09:20 WBC 7.5 (4.0-11.0) 10^3/uL Hgb 11.7 L (14.0-18.0) g/dL Hct 34.7 L (42.0-54.0) % Plt Count 392 (150-450) 10^3/uL [facility] 05/28/25 09:20 Sodium 133 L Potassium 5.2 H Chloride 100 Carbon Dioxide 26.3 BUN 32.0 H Creatinine 2.41 H Glucose 363 H Calcium 8.6 Assessment and Plan Assessment and Plan (1) Acute renal failure: (2) Chronic urinary tract infection: Plan Recurrent CAUTI present on admission. Bilateral pyelonephritis, cystitis Patient has a neurogenic bladder, he self caths himself 3 times a day. Is able to void in between Patient stated that he uses different catheter every time he cath himself. He washes his hand but does not clean or sterilize the meatus CAT scan showed urothelial thickening involving the bladder as well as bilateral renal pelvis and ureter Urine culture was completed yesterday in the outpatient setting. Still pending I started patient on Zosyn suspecting that he may have Pseudomonas. This will not cover ESBL but no prior history of ESBL. PAMELA/CKD. His baseline creatinine is around 1.6?2 0 Baseline GFR is in the 30s. He has had kidney failure for the last year and a half. Suspect progressive secondary to nephrosclerosis secondary to hypertension and diabetes acute component could be related to volume depletion and the fact that the patient He is taking high-dose lisinopril 40 mg daily and hydrochlorothiazide Acute component also could be caused by active urinary tract infection Hold the lisinopril and hydrochlorothiazide. Hold metformin Avoid nephrotoxic drug Gentle IV fluid infusion to achieve euvolemic state. Diabetes with hyperglycemia Last A1c a month ago it was 8.5. Patient is on glipizide Resume glipizide. Hold metformin due to creatinine above 1.5. Consideration to add another agent such as SGLT, and/or insulin Hypertension Reasonable control. Hold lisinopril and hydrochlorothiazide due to PAMELA. Anemia, no evidence of acute blood loss. This could be related to CKD. Requested to check iron study, B12 and ferritin rule out deficiencies. Patient will likely require to have anemia workup to be done in the outpatient setting to be handled by PCP in collaboration with other needed outpatient providers. This may include but not limited to EGD, colonoscopy, referral to see hematology and other needed age-appropriate cancer screening. Chronic, subacute medical conditions not listed above, abnormal labs and imaging, incidental findings seen on labs and or imaging. These would need to be addressed. Could be addressed later on or in the outpatient setting by PCP collaboration with other needed outpatient providers when time and condition are appropriate.
--- NOTE | 2025-05-28 12:35 | CM.NOTE ---
Important Message From Medicare discussed with pt, pt verbalizes understanding and signs paper. Original given to pt and copy placed in chart.
[2025-05-28] MEDS: AMLODIPINE BESYLATE 5 MG TABLET PO (13:23)
[2025-05-28 16:00] VITALS: BP 147/76; PULSE 88; TEMP 36.6; O2SAT 97
[2025-05-28] MEDS: GLIPIZIDE 5 MG TABLET PO (17:12)
[2025-05-28] MEDS: MAGNESIUM SULFATE/D5W 1 GM/100 ML PREMIX IV (17:12)
[2025-05-28] MEDS: PIPERACILLIN SODIUM/TAZOBACTAM 3.375 GM in 0.9 % SODIUM CHLORIDE 50 ML IV (17:48)
[2025-05-28 19:38] VITALS: BP 136/66; PULSE 87; TEMP 36.6; O2SAT 96
--- NOTE | 2025-05-28 20:24 | ED.GENADUL1 ---
HPI HPI - General Adult General Chief complaint: Back Pain/Injury Stated complaint: back pain Time Seen by Provider: 05/28/25 09:15 Source: patient Mode of arrival: walk-in Limitations: no limitations History of Present Illness HPI narrative: Patient is a 70-year-old male who is presenting to the ER with chief complaint of failing outpatient oral antibiotics and needing IV antibiotics and admission. Patient came to the ER initially, and had the impression that he was getting a direct admission for IV antibiotics as recommended by Dr. Parada. Patient initially was placed in room 10 in the emergency room, however patient and stated they are not to be in the ER, he is a direct admission and should be going upstairs for IV antibiotics. Patient is in no acute distress, patient will go back to the waiting room and we will speak to Dr. Parada, her office, or try to understand more detail what direction this patient should be in. Patient is not certain if he supposed to be in the infusion center versus admission to the hospital. Patient has had 2 rounds of antibiotics recently that he has failed. Patient self caths 3 times a day. Patient had lab work done yesterday that was ordered by Dr. Parada. Patient has PAMELA, also had a CAT scan that shows bladder thickening and thickening of the ureter up to the kidneys. Patient self caths 3 times a day. Patient does a secondary neurogenic bladder. Patient's urologist is Dr. Tao. We are trying to get a hold of Dr. Parada, her office, or other physicians covering Dr. Parada try to get more clarification on what the recommendation is for this patient. I started reaching out to Dr. Parada at 8:40 AM. I was able to finally speak to her approximately 1 hour later. Then I went to speak to the patient and his . Patient's was very upset with him waiting so long, that they are not a direct admission. I discussed with the patient and his that he was supposed to come to the hospital yesterday as recommended by Dr. Parada, both patient and agree. I explained to them dehydration, PAMELA, the need for IV antibiotics, and the appropriate need to come through the emergency room prior to being admitted to the hospital upstairs. After HPI and physical exam, patient and are laughing, in a better mood, happy, and understand the process in place. Patient denies any abdominal pain nausea or vomiting. He has no pain to penis or testicles. No rash to his penis, testicles, perineum, no acute complaints. Unless otherwise stated in this report or unable to obtain because of the patient's clinical or mental status as evidenced by medical record, the patient's positive and negative responses for review of systems for constitutional, eyes, ENT, cardiovascular, respiratory, gastrointestinal, neurological, , musculoskeletal, and integument systems and related systems to the presenting problem are either stated in the history of present illness or were not pertinent or were negative for the symptoms and/or complaints related to the presenting medical problem. Nurses note and vital signs reviewed and patient is not hypoxic. General: The patient appears well and in no apparent distress. Patient is resting comfortably on cart. Patient is not toxic, lethargic, or listless Skin: Warm, dry, no pallor noted. There is no rash noted. No petechiae, purpura. Head: Normocephalic, atraumatic Eye: Normal conjunctiva, no drainage, EOMI. PERRL Ears, Nose, Mouth, and Throat: oral mucosa is moist. Nares patent. Mouth without vesicles. Cardiovascular: Regular Rate and Rhythm, no murmur, gallop, rub Respiratory: Patient is in no distress, no accessory muscle use, lungs are clear to auscultation, no wheezing, rales or rhonchi Back: non-tender, no CVA tenderness bilaterally to percussion. No CT LS midline pain GI: Soft, obese, no tenderness to palpation, no masses appreciated. No rebound, guarding, or rigidity noted. No distention, No flank pain bilateral. Musculoskeletal: Patient has full range of motion of all of the extremities, no motor, sensory, or focal neurological deficits Neurological: A&O x4, normal speech Psychiatric: Cooperative Related Data Home Medications ?Medication ?Instructions ?Recorded ?Confirmed atorvastatin 20 mg tablet 20 mg PO .qhs 05/23/23 05/28/25 amlodipine 5 mg tablet 5 mg PO DAILY 01/31/24 05/28/25 lisinopril 40 mg tablet 40 mg PO DAILY 01/31/24 05/28/25 glipizide 5 mg tablet 10 mg PO .bidpc 05/28/25 05/28/25 hydrochlorothiazide 12.5 mg tablet 12.5 mg PO DAILY 05/28/25 05/28/25 metoprolol succinate 25 mg 25 mg PO Q12H 05/28/25 05/28/25 tablet,extended release 24 hr omeprazole 20 mg capsule,delayed 20 mg PO QAM 05/28/25 05/28/25 release tamsulosin 0.4 mg capsule 0.4 mg PO .qhs 05/28/25 05/28/25 Previous Rx's ?Medication ?Instructions ?Recorded magnesium oxide 500 mg capsule 500 mg PO TID #30 caps 08/24/24 Allergies Allergy/AdvReac Type Severity Reaction Status Date / Time No Known Drug Allergies Allergy Verified 05/28/25 09:06 Opioid HPI Opioid Management Most Recent Opioid Data: Last Pain Scale 3 Today, 09:06 Last Pain Assessment Today, 19:31 Last ORT Total Score 0 Today, 11:07 Last ORT Risk Category Low Risk Today, 11:07 [facility] Medical History (Updated 05/28/25 @ 14:59 by Joanna Muller) Nephrolithiasis ?N20.0 - Calculus of kidney (ICD-10) Acute on chronic urinary retention ?R33.9 - Retention of urine, unspecified (ICD-10) Hypertension ?I10 - Essential (primary) hypertension (ICD-10) Diabetes ?E11.9 - Type 2 diabetes mellitus without complications (ICD-10) Carpal tunnel syndrome ?G56.00 - Carpal tunnel syndrome, unspecified upper limb (ICD-10) Surgical History (Updated 05/28/25 @ 10:19 by JESUS GEORGE) H/O elbow surgery ?Z98.890 - Other specified postprocedural states (ICD-10) H/O spinal fusion ?Z98.1 - Arthrodesis status (ICD-10) Social History (Updated 05/28/25 @ 10:21 by JESUS GEORGE) Within the past year, how often did you have a drink containing alcohol: 4 or more times a week Within the past year, how many standard drinks containing alcohol did you have on a typical day: 3 or 4 Within the past year, how often did you have six or more drinks on one occasion: weekly Total score: 5 Score interpretation: A score of 4 or more indicates drinking is likely to affect patient's safety. Smoking status: Former smoker Highest level of school completed/degree received: Associate degree: occupational, technical, vocational program Little interest or pleasure in doing things: not at all Feeling down, depressed, or hopeless: not at all Exam Constitutional Vital Signs, click to edit/add: Last Vital Signs Temp 97.8 F 05/28/25 19:38 Pulse 87 05/28/25 19:38 Resp 16 05/28/25 19:38 BP 136/66 05/28/25 19:38 Pulse Ox 96 05/28/25 19:38 O2 Del Method Room Air 05/28/25 19:38 Course Vital Signs Vital signs: Vital Signs Temperature 98.7 F 05/28/25 09:06 Pulse Rate 87 05/28/25 09:06 Respiratory Rate 16 05/28/25 09:06 Blood Pressure 135/75 05/28/25 09:06 Pulse Oximetry 99 05/28/25 09:06 Temperature 97.8 F 05/28/25 19:38 Pulse Rate 87 05/28/25 19:38 Respiratory Rate 16 05/28/25 19:38 Blood Pressure 136/66 05/28/25 19:38 Pulse Oximetry 96 05/28/25 19:38 Oxygen Delivery Method Room Air 05/28/25 19:38 Medical Decision Making MDM Narrative Medical decision making narrative: After spending approximate 1 hour try to get a hold of Dr. Parada by texting her, calling her cell phone, calling the office, speaking to Antoinette Schmidt nurse manager [place], and trying to get more direction on if patient should be in the infusion center, admission or in the ER. Finally I was able to speak to Dr. Parada and she helped make the situation very clear. Patient is to be in the ER, IV, labs, IV fluids, IV antibiotics and admitted for IV antibiotics since patient has failed outpatient therapy. Patient white blood cell count today is 7.5, patient's BUN and creatinine worsened slightly again at 32/2.41. Glucose 363. Patient's hemoglobin A1c that was ordered as an outpatient was 10.5. Patient was admitted to Dr. Domínguez. Patient and are happy with the explanation that I gave them after we spent over an hour trying to find out the best solution for the patient and trying to help him the best we could, especially since he did not come to the ER yesterday when he was told to do so by Dr. Parada. Patient and agree with admission. Patient be started with IV fluids, IV antibiotics, and admission. Lab Data Labs: Lab Results 05/28/25 Range/Units 09:20 WBC 7.5 (4.0-11.0) 10^3/uL RBC 3.69 L (4.70-6.10) 10^6/uL Hgb 11.7 L (14.0-18.0) g/dL Hct 34.7 L (42.0-54.0) % MCV 94.0 (80.0-94.0) fL MCH 31.7 (25.9-34.0) pg MCHC 33.7 (29.9-35.2) g/dL RDW 12.1 (11.0-15.0) % Plt Count 392 (150-450) 10^3/uL MPV 9.8 (9.5-13.5) fL Neut % (Auto) 68.8 (43.0-75.0) % Lymph % (Auto) 19.2 L (20.5-60.0) % [place] % (Auto) 7.2 (1.7-12.0) % Eos % (Auto) 2.4 (0.9-7.0) % Baso % (Auto) 1.1 (0.2-2.0) % Neut # (Auto) 5.2 (1.4-6.5) 10^3/uL Lymph # (Auto) 1.5 (1.2-3.8) 10^3/uL [place] # (Auto) 0.5 (0.3-0.8) 10^3/uL Eos # (Auto) 0.2 (0.0-0.7) 10^3/uL Baso # (Auto) 0.1 (0.0-0.1) 10^3/uL Abs Immat Gran (auto) 0.10 H (0.00-0.03) 10^3/uL Imm/Tot Granulo (auto) 1.3 H (0.0-0.5) % Sodium 133 L (136-145) mmol/L Potassium 5.2 H (3.5-5.1) mmol/L Chloride 100 (98-107) mmol/L Carbon Dioxide 26.3 (21.0-32.0) mmol/L Anion Gap 11.9 BUN 32.0 H (7.0-18.0) mg/dL Creatinine 2.41 H (0.70-1.30) mg/dL Est GFR ( Amer) 32 L (>=60 mL/min/1.73m^2) Est GFR (Non-Af Amer) 27 L (>=60 mL/min/1.73m^2) BUN/Creatinine Ratio 13.3 Glucose 363 H (74-106) mg/dL Estimat Average Glucose 255 mg/dL Hemoglobin A1c 10.5 H (4.5-6.2) % Calcium 8.6 (8.5-10.1) mg/dL Discharge Plan Discharge Chief Complaint: Back Pain/Injury Clinical Impression: Chronic urinary tract infection, Acute renal failure Patient Disposition: Admitted As Inpatient Time of Disposition Decision: 09:46 Discharge Date/Time: 05/28/25 11:08
[2025-05-28] MEDS: METOPROLOL TARTRATE 25 MG TABLET PO (21:58)
[2025-05-28] MEDS: ENOXAPARIN SODIUM 30 MG/0.3 ML SYRINGE SUBQ (21:58)
[2025-05-28] MEDS: ATORVASTATIN CALCIUM 40 MG TABLET PO (21:58)
[2025-05-28] MEDS: ACETAMINOPHEN 325 MG TABLET 650 MG PO (22:05)
[2025-05-28 23:48] VITALS: BP 118/74; PULSE 63; TEMP 36.4; O2SAT 95
[2025-05-29] MEDS: PIPERACILLIN SODIUM/TAZOBACTAM 3.375 GM in 0.9 % SODIUM CHLORIDE 50 ML IV ×2 (02:53→09:08)
[2025-05-29 04:54] VITALS: BP 145/84; PULSE 70; TEMP 36.5; O2SAT 96
[2025-05-29] MEDS: PANTOPRAZOLE SODIUM 40 MG TABLET.DR PO (05:37)
[2025-05-29 06:02] LABS: Hematocrit 31.2 % (42.0-54.0); Hemoglobin 10.4 g/dL (14.0-18.0); Immature Granulocytes Abs Auto 0.07 10^3/uL (0.00-0.03); Immature Granulocytes Pct Auto 1.2 % (0.0-0.5); Lymphocytes Absolute Auto 1.4 10^3/uL (1.2-3.8); Mean Corpuscular HGB Conc 33.3 g/dL (29.9-35.2); Mean Corpuscular Hemoglobin 31.5 pg (25.9-34.0); Mean Corpuscular Volume 94.5 fL (80.0-94.0); Platelet Count 375 10^3/uL (150-450); Red Blood Count 3.30 10^6/uL (4.70-6.10); White Blood Count 6.0 10^3/uL (4.0-11.0)
[2025-05-29 06:19] LABS: Alanine Aminotransferase 20 U/L (16-63); Albumin Globulin Ratio 0.7; Albumin Level 2.5 g/dL (3.4-5.0); Alkaline Phosphatase 97 U/L (46-116); Anion Gap 14.4; Aspartate Amino Transferase 10 U/L (15-37); Blood Urea Nitrogen 26.0 mg/dL (7.0-18.0); Calcium 8.1 mg/dL (8.5-10.1); Carbon Dioxide 23.6 mmol/L (21.0-32.0); Chloride 108 mmol/L (98-107); Cholesterol 143 mg/dL (<=200); Estimated GFR (African America 38 (>=60 mL/min/1.73m^2); Estimated GFR (Non-African Ame 31 (>=60 mL/min/1.73m^2); Globulin 3.6 g/dL; Glucose 180 mg/dL (74-106); HDL Cholesterol 32 mg/dL (40-60); Potassium 4.0 mmol/L (3.5-5.1); Sodium 142 mmol/L (136-145); Total Protein 6.1 g/dL (6.4-8.2); Triglycerides 139 mg/dL (<=150); VLDL CHOLESTEROL 27.8 mg/dL
[2025-05-29 06:48] LABS: Magnesium 1.1 mg/dL (1.8-2.4)
[2025-05-29 07:15] VITALS: BP 134/79; PULSE 71; TEMP 36.6; O2SAT 98
[2025-05-29] MEDS: AMLODIPINE BESYLATE 5 MG TABLET PO (08:00)
[2025-05-29] MEDS: GLIPIZIDE 5 MG TABLET PO (08:00)
[2025-05-29] MEDS: INSULIN ASPART 300 UNIT/3 ML PEN SUBQ ×2 (08:00→11:28)
[2025-05-29] MEDS: 0.9 % SODIUM CHLORIDE 1,000 ML 125 ML IV (08:00)
--- NOTE | 2025-05-29 08:00 | CM.NOTE ---
Rounds made with Dr. Conte, discussed plan of care with pt. Possible discharge this afternoon. Pt will f/u with Dr. Parada.
[2025-05-29] MEDS: METOPROLOL TARTRATE 25 MG TABLET PO (08:01)
--- NOTE | 2025-05-29 09:34 | CM.NOTE ---
CM printed from [facility] results of urine culture from 04/[address] Conte.
--- NOTE | 2025-05-29 10:17 | CM.NOTE ---
Lab requisition filled out for BMP to be completed on Tuesday and fax results to Dr. Parada. Order given to pt and order faxed to lab.
--- NOTE | 2025-05-29 10:25 | PM.DS1 ---
DS: Providers Provider Date of admission: 05/28/25 10:58 Primary care physician: Ivania Parada DO DS: Diagnosis Discharge Diagnosis (1) Acute renal failure: (2) Chronic urinary tract infection: Plan As listed above, below and others that are not listed DS: Summary Hospital Course Hospital Course: Mr. Benjamin is a 70-year-old gentleman who was sent to the emergency room by his primary care doctor to be admitted for PAMELA and UTI. He was found to have the following: Recurrent CAUTI present on admission. Bilateral pyelonephritis, cystitis Patient has a neurogenic bladder, he self caths himself 3 times a day. Is able to void in between Patient stated that he uses different catheter every time he cath himself. He washes his hand but does not clean or sterilize the meatus CAT scan showed urothelial thickening involving the bladder as well as bilateral renal pelvis and ureter Urine culture was completed yesterday in the outpatient setting. Culture is coming back negative. Less than 9000 colonies of mixed bacterial organism. Patient was started on Zosyn. IV Zosyn will be discontinued now that the culture is negative. I was able to get report of previous urine culture completed in the past showing Enterobacter which is sensitive to Cipro. Patient had completed 7 days course of Cipro last week. I would recommend additional 5 days of Cipro to 50 mg twice daily due to moderate leukocytes in the urine. Patient did not exhibit any signs and symptoms of a systemic infection. Patient wants to go home today. He does not want to stay any longer. I encouraged patient to continue to use sterile technique when he self cath himself 3 times a day If he continues to have recurrent CAUTI, I would recommend chronic antibiotic suppressive therapy. PAMELA/CKD. His baseline creatinine is around 1.6?2 0 Baseline GFR is in the 30s. He has had kidney failure for the last year and a half. Suspect progressive secondary to nephrosclerosis secondary to hypertension and diabetes acute component could be related to volume depletion and the fact that the patient He is taking high-dose lisinopril 40 mg daily and hydrochlorothiazide Acute component also could be caused by active urinary tract infection Hold the lisinopril and hydrochlorothiazide. Hold metformin Avoid nephrotoxic drug Gentle IV fluid infusion to achieve euvolemic state. Kidney function hyperkalemia had improved. Potassium is down to 4.0. Creatinine is down to 2.09 which is not far from baseline. Patient will be getting additional 1 L of IV fluid infusion today. Hopefully that will bring his creatinine further down. He wants to go home today. He does want to stay in a longer. I would recommend BMP next Tuesday and the result is to be communicated to PCP I would recommend reducing his lisinopril from 40 down to 20 mg daily to reduce his risk having PAMELA. Hypomagnesemia IV magnesium supplementation and continue oral magnesium. Recommend repeat magnesium level on Tuesday. Results to be communicated to PCP. Diabetes with hyperglycemia Last A1c a month ago it was 8.5. Patient is on glipizide Resume glipizide. Hold metformin due to creatinine above 1.5. Consideration to add another agent such as SGLT, and/or insulin I instructed patient to do the following: Check your blood sugar 3 times a day before meals. Document these numbers on a blood glucose log and bring them with you to your follow-up appointment with your primary care doctor. Communicate with your primary care doctor or retirement benefits specialist if your blood sugar is under 100 or above 300 on 2 consecutive checks. Communicate with your primary care doctor or retirement benefits specialist if you have any questions about your diabetes medications. Signs of a low blood sugar include sweating, racing heart, dizziness and/or weakness. Check your blood sugar if you have any of the symptoms. Patient may need to be started on insulin to be arranged by PCP in the outpatient setting to achieve better blood sugar control with a goal of A1c less than 7. Hypertension Reasonable control. Hold lisinopril and hydrochlorothiazide due to PAMELA. Patient may resume lisinopril tomorrow at 20 mg daily. BMP next Tuesday, result is to be communicated to PCP Anemia, no evidence of acute blood loss. This could be related to CKD. Requested to check iron study, B12 and ferritin rule out deficiencies. Patient will likely require to have anemia workup to be done in the outpatient setting to be handled by PCP in collaboration with other needed outpatient providers. This may include but not limited to EGD, colonoscopy, referral to see hematology and other needed age-appropriate cancer screening. Chronic, subacute medical conditions not listed above, abnormal labs and imaging, incidental findings seen on labs and or imaging. These would need to be addressed. Could be addressed later on or in the outpatient setting by PCP collaboration with other needed outpatient providers when time and condition are appropriate. Patient has multiple complex medical issues as listed above and others that are not listed. Patient is feeling great. He is requesting to be discharged home. He is not willing to stay any longer. At this time, I do not have any clear or strong legal justification to extend inpatient hospitalization against his will and desire to go home. Patient however will require close and frequent monitoring as well as additional work-up, investigation and therapeutic intervention that could take place from this point on post discharge. That is to prevent relapse, decompensation, rehospitalization and other medical implications. I would recommend BMP and magnesium level on Tuesday. Results to be communicated to PCP. I would recommend consideration to initiate insulin for better diabetes control to be arranged by PCP in the outpatient setting. Discharge medications as listed are not final or set in stone. Primary care doctor and other out patient providers will need to titrate and adjust medications as soon as the first post discharge visit based on clinical progression, vitals signs, volume status and other related organs function. I instructed patient to ask her primary care doctor to obtain [facility] record entirely to address abnormalities seen on labs and imaging that I have and have not addressed during this hospitalization, follow-up on pending blood work, imaging and pathology is if available and to follow-up on needed medical care in the outpatient setting. Time Spent with Patient Time attestation: Total time spent providing and/or coordinating discharge services: Time spent: greater than 30 minutes Exam Narrative Exam Narrative: [pt is awake and alert. oriented to place, time and person HEENT: [place] conjunctiva and NL buccal mucosa Neck: Supple, no tenderness Endocrine: No Thyromegaly. Vascular: No JVD or carotid bruit. Lymphatic: No cervical lymphadenopathy. Chest: CTA no DTP. Heart RRR, no extra sound or murmur. Abd: Soft, no tenderness, no rebound and no rigidity. Central obesity, increase abd girth therefore clinically I could not exclude the possibility of intra abd mass or organomegaly. LE: No cyanosis or clubbing, no varices or edema. Neuro: A A O. Nl speech, comprehension and attention. Nl and symetrical motor and tone examination through out. []] Constitutional Vital Signs, click to edit/add: Last Vital Signs Temp 98 F 05/29/25 07:15 Pulse 71 05/29/25 07:15 Resp 20 05/29/25 07:15 BP 134/79 05/29/25 07:15 Pulse Ox 98 05/29/25 07:15 O2 Del Method Room Air 05/29/25 07:15 DS: Data Data Completed and Pending Labs on day of discharge: Labs from last 24 hours 05/29/25 05/28/25 05/28/25 04:51 21:28 16:15 WBC 6.0 RBC 3.30 L Hgb 10.4 L Hct 31.2 L MCV 94.5 H MCH 31.5 MCHC 33.3 RDW 12.3 Plt Count 375 MPV 9.3 L Neut % (Auto) 61.9 Lymph % (Auto) 23.0 [place] % (Auto) 9.2 Eos % (Auto) 3.5 Baso % (Auto) 1.2 Neut # (Auto) 3.7 Lymph # (Auto) 1.4 [place] # (Auto) 0.6 Eos # (Auto) 0.2 Baso # (Auto) 0.1 Abs Immat Gran (auto) 0.07 H Imm/Tot Granulo (auto) 1.2 H Sodium 142 Potassium 4.0 Chloride 108 H Carbon Dioxide 23.6 Anion Gap 14.4 BUN 26.0 H Creatinine 2.09 H Est GFR ( Amer) 38 L Est GFR (Non-Af Amer) 31 L BUN/Creatinine Ratio 12.4 Glucose 180 H Estimat Average Glucose Hemoglobin A1c Calcium 8.1 L Phosphorus 4.0 Magnesium 1.1 L Total Bilirubin 0.5 AST 10 L ALT 20 Alkaline Phosphatase 97 Total Protein 6.1 L Albumin 2.5 L Globulin 3.6 Albumin/Globulin Ratio 0.7 Triglycerides 139 Cholesterol 143 LDL Cholesterol, Calc 84.0 VLDL Cholesterol 27.8 HDL Cholesterol 32 L Cholesterol/HDL Ratio 4.5 POC Glucose 278 H 250 H 05/28/25 05/28/25 11:26 09:20 WBC RBC Hgb Hct MCV MCH MCHC RDW Plt Count MPV Neut % (Auto) Lymph % (Auto) [place] % (Auto) Eos % (Auto) Baso % (Auto) Neut # (Auto) Lymph # (Auto) [place] # (Auto) Eos # (Auto) Baso # (Auto) Abs Immat Gran (auto) Imm/Tot Granulo (auto) Sodium Potassium Chloride Carbon Dioxide Anion Gap BUN Creatinine Est GFR ( Amer) Est GFR (Non-Af Amer) BUN/Creatinine Ratio Glucose Estimat Average Glucose 255 Hemoglobin A1c 10.5 H Calcium Phosphorus Magnesium Total Bilirubin AST ALT Alkaline Phosphatase Total Protein Albumin Globulin Albumin/Globulin Ratio Triglycerides Cholesterol LDL Cholesterol, Calc VLDL Cholesterol HDL Cholesterol Cholesterol/HDL Ratio POC Glucose 297 H Discharge Plan Discharge Disposition: Home, Self-Care Discharge Medications: New ciprofloxacin HCl [Cipro] 250 mg tablet 250 mg PO BID Qty: 10 0RF Continued atorvastatin 20 mg tablet 20 mg PO .qhs magnesium oxide 500 mg capsule 500 mg PO TID Qty: 30 0RF amlodipine 5 mg tablet 5 mg PO DAILY hydrochlorothiazide 12.5 mg tablet 12.5 mg PO DAILY omeprazole 20 mg capsule,delayed release(DR/EC) 20 mg PO QAM metoprolol succinate 25 mg tablet extended release 24 hr 25 mg PO Q12H glipizide 5 mg tablet 10 mg PO .bidpc tamsulosin 0.4 mg capsule 0.4 mg PO .qhs Changed lisinopril 40 mg tablet 20 mg PO DAILY Qty: 0 0RF Print Language: Slovak Patient Instructions: Ciprofloxacin (By mouth), Urinary Tract Infection in Men (GEN) Activity Restrictions/Additional Instructions: I may not have addressed or treated all of your medical illnesses or the abnormal blood work or imaging studies during this hospitalization. Please ask your primary care provider to obtain [facility] records entirely to follow up on all of the abnormal physical, laboratory, and imaging findings that I have not addressed. Please return back to the emergency room or seek medical attention if your symptoms worsen or return. Please report back to the emergency room if you develop lower abdominal pain, fever or chills Check your blood sugar 3 times a day before meals. Document these numbers on a blood glucose log and bring them with you to your follow-up appointment with your primary care doctor. Communicate with your primary care doctor or retirement benefits specialist if your blood sugar is under 100 or above 300 on 2 consecutive checks. Communicate with your primary care doctor or retirement benefits specialist if you have any questions about your diabetes medications. Signs of a low blood sugar include sweating, racing heart, dizziness and/or weakness. Check your blood sugar if you have any of the symptoms. Blood work ( BMP ans MG ) to be done on Tuesday and the results to be communicated to primary care doctor. Discharging you from [facility] does not mean that your medical care ends here and now. You may still need additional monitoring, work up, investigation, and treatment plan to be handled from this point on by out patient providers including your primary care provider and specialists. For any medication question, please contact your retail pharmacist or your primary care provider. Thank you. Telephone Operators Supervisor/[employer] Helper Instructions: BMP ( lab order given to patient to be completed on TuesdayJun 03) results will be faxed to Dr. Parada Forms: Portal Instructions Follow Up Appointments: Dr. Parada - 06/03 @ 1:30pm [phone]
[2025-05-29] MEDS: MAGNESIUM SULFATE IN WATER 2 GM/50 ML PREMIX IV (10:50)
--- NOTE | 2025-05-29 10:56 | CM.NOTE ---
Magnesium added to lab requisition per Dr. Conte, results to Dr. Parada. Lab order faxed again to lab.
--- NOTE | 2025-05-31 11:27 | CM.DCFOLLOWU ---
Person spoke with: Clarence How are you feeling? Much better How is your pain? No pain Did you understand your discharge instructions? Yes Do you have any questions about your discharge instructions? No Were you given any prescriptions at discharge? Yes Were you able to get your prescriptions filled? Yes Do you understand how to take your medications as ordered? Yes Do you have any questions about your follow up appointment and do you plan to keep your follow up appointment? No questions. Yes he plans on keeping his follow up appt. Is there anything else that you would like to discuss? No Questions/Comments/Concerns/Other:
--- NOTE | 2025-06-03 13:00 | NUTR.NU ---
Pt admitted 05/28/25 w/dx UTK, PAMELA, hydronephrosis; he has no wounds or edema. PO intakes of regular diet are 100%. No dietary concerns at this time. Pt discharged to home this afternoon.
--- NOTE | 2025-06-03 13:01 | NUTR.NU ---
[place] to PN: Pt discharged to home 05/29/25.
== END 2025-05-29 14:01 | disposition home or self-care (01) | DRG 699 ==
LOC: ER 09:46 → MS 11:01
PROVIDERS: Admitting Provider Internal Medicine; Emergency Provider Emergency Medicine; PCP Family Medicine; Visit Provider Internal Medicine
DX: T83.518A Infection and inflammatory reaction due to other urinary catheter, initial encounter (principal); N12 Tubulo-interstitial nephritis, not specified as acute or chronic; N17.9 Acute kidney failure, unspecified; N30.90 Cystitis, unspecified without hematuria; N31.9 Neuromuscular dysfunction of bladder, unspecified; E83.42 Hypomagnesemia; E11.65 Type 2 diabetes mellitus with hyperglycemia; I12.9 Hypertensive chronic kidney disease with stage 1 through stage 4 chronic kidney disease, or unspecified chronic kidney disease; N18.9 Chronic kidney disease, unspecified; E11.22 Type 2 diabetes mellitus with diabetic chronic kidney disease; D63.1 Anemia in chronic kidney disease; Z87.440 Personal history of urinary (tract) infections; Z87.891 Personal history of nicotine dependence; Z79.84 Long term (current) use of oral hypoglycemic drugs; Z79.899 Other long term (current) drug therapy; Y84.6 Urinary catheterization as the cause of abnormal reaction of the patient, or of later complication, without mention of misadventure at the time of the procedure
CPT/HCPCS: 36415; 74176; 80048; 80053; 80061; 81003; 82553; 82948; 83036; 83735; 84100; 85025; 87086; 93005; 96365; 99284; J1650; J2543; J3475

== ENCOUNTER 2025-06-03 07:15 | Outpatient (OUT) | payer MEDICARE, OTHER, SELFPAY ==
--- OUTSIDE RECORDS SUMMARY | 2025-06-03 07:20 | XMS_ITS | Clinical Summary ---
Author Organization [facility] Address [address] [place] [address] Phone Care Team Providers Care Day Care Home Provider Name Role Phone Unavailable Primary Care Provider Unavailabl e Social History Tobacco UseTypesPacks/DayYears UsedDateSmoking Tobacco: Never AssessedSex and Gender InformationValueDate RecordedSex Assigned at BirthNot on fileLegal Sex Male04/30/2022 11:54 PM ESTGender IdentityNot on fileSexual OrientationNot on file Plan of Treatment Health MaintenanceDue DateLast DoneCommentsCT Rahfebnvfwlf1954Colonoscopy 1954olorectal Cancer Jmsbdiyle1954FIT-DNA (Cologuard)1954FIT 1954Lipid Panel1954Medicare Annual Wellness Visit (AWV)1954 Egxwilhbieuub1954MMR Vaccines (1 of 1 - Standard series)1955 Hepatitis C Sukixmggd50/09/1972DTaP/Tdap/Td Vaccines (1 - Tdap)1976 Pneumococcal Vaccine (1 of 1 - PCV)2004Zoster Vaccines (1 of 2)2004 COVID-19 Vaccine (1 - 2024- season)2025Influenza Vaccine (#1)2025 RSV High Risk: (Elderly (60+) or Population) [...]
--- OUTSIDE RECORDS SUMMARY | 2025-06-03 07:20 | XMS_ITS | Clinical Summary ---
Author Organization [facility] tem Address [id number] [place] [address] Care Team Providers Care Prune Washer Name Role Phone Cori Mcgrath MD Primary Care Provider [phone] Social History Tobacco UseTypesPacks/DayYears UsedDateSmoking Tobacco: Never AssessedChildcare AnswerDate XifevdczJogthntonRllbgpw74/12/2019EmploymentAnswerDate Recorded HkhxvtxxwqCtgypuw73/12/2019Purpose - LifeAnswerDate RecordedPurpose and direction in lpdrYrffgjm86/11/2021ex and Gender InformationValueDate Recorded Sex Assigned at BirthNot on fileLegal GrqOkfm5801/09/2015 12:04 PM EDTGender IdentityNot on fileSexual OrientationNot on file Plan of Treatment Health MaintenanceDue DateLast DoneCommentsDepression Kkiaybylf39/09/1966Tobacco Hphcleeuc80/09/1966Adult BMI Nuksrbiga13/09/1972DTaP,Tdap and Td Vaccines (1 - Tdap)1973Zoster (Shingles) Vaccine (1 of 2)2004Fall Risk Screening 2019COVID-19 Vaccine ( season)/, 03/16/2023, 04/05/2022, Additional history existsInfluenza Ajyectm05/, 03/16/2023, 04/05/2022, Additional history existsRSV ( or age 60+ yrs) (1 - 1-dose 75+ series)2029 [employer] Not on file Insurance Care Teams Team MemberRelationshipSpecialtyStart DateEnd Cori Mcgrath MD PCP - GeneralFamily Medicine02/27/18
--- OUTSIDE RECORDS SUMMARY | 2025-06-03 07:20 | XMS_ITS | Clinical Summary ---
Author Organization [facility] Address [address] [place] [address] Care Team Providers Care Jet Man Name Role Phone Jose Melchor MD Primary Care Provider [phone] Allergies Active AllergyReactionsCriticalityNoted DateCommentsCelecoxibAnxiety,UnknownLow 08/14/2024 Medications MedicationSigDispense [...] InformationValueDate RecordedSex Assigned at BirthNot on fileLegal IgqVimn2408/18/2022 6:34 PM EDTGender IdentityNot on file Sexual OrientationNot on file Last Filed Vital Signs Vital SignReadingTime TakenCommentsBlood Jfssutua592/9410 12:00 PM EDT Pulse--Temperature--Respiratory Rate--Oxygen Saturation--Inhaled Oxygen Concentration--Nlctik034 kg (253 lb)08/14/2024 2:01 PM YSVRgegbs084.3 cm (5' 9 ) 08/14/2024 2:01 PM EDTBody Mass Index37.36008/14/2024 2:01 PM EDT Plan of Treatment Not on file Insurance Care Teams Team MemberRelationshipSpecialtyStart DateEnd Jose Melchor MD [address] [place] [address] PCP - GeneralFamily Medicine07/18/24
--- OUTSIDE RECORDS SUMMARY | 2025-06-03 07:21 | XMS_ITS | CCD ---
Author Organization [facility] Team Providers Care Computer Systems Consultant Name Role Phone DR TYRESE MCGRATH Admitting Unavailable ASH, DR TYRESE Green Attending Unavailable DR TYRESE MCGRATH Primary Care Unavailable DR TYRESE MCGRATH Consulting Unavailable Nancy Grace Primary Care Physician GINO Porter Attending Provider MD Nancy Grace Primary Care Provider MD Nancy Grace Primary Care Provider [phone] GINO Porter Attending Provider MD Bryant Tao Attending Provider [phone] MARINO KEARNS Attending Unavailable MARINO KEARNS Admitting [...] Unavailable Tyrese Mcgrath MD Primary Care Provider [phone] NONE, XXXX Referring Unavailable MD Javier Goins [...] KEARNS MARINO A Admitting Unavailabl e SHIRA, ROPE COILING MACHINE OPERATOR MARINO A Attending Unavailabl e Jacinto [...] Attending Unavailable Nancy Grace Attending Unavailable SHIRA, ROPE COILING MACHINE OPERATOR MARINO A Attending Unavailabl e Nancy Grace Admitting Unavailable Nancy Grcae Attending Unavailable SHIRA, ROPE COILING MACHINE OPERATOR MARINO A Attending Unavailabl e Nancy Grace Attending Unavailable SHIRA, ROPE COILING MACHINE OPERATOR MARINO A Admitting Unavailabl e SHIRA, ROPE COILING MACHINE OPERATOR MARINO A Attending Unavailabl e SHIRA, ROPE COILING MACHINE OPERATOR MARINO A Attending Unavailabl e SHIRA, [...] Unavailable SHIRA, MARINO A Attending Unavailable SHIRA, ROPE COILING MACHINE OPERATOR MARINO A Attending Unavailabl e SHIRA, ROPE COILING MACHINE OPERATOR MARINO A Admitting Unavailabl e Karma Ivania [...] Care Provider Ivania Vale DO Attending Provider [phone] Clara Encarnacion APRN Attending Provider Fernando Dumont MD Attending Provider [phone] Allergies Allergy ClassificationReported Allergen(s)Allergy TypeDate of OnsetReaction(s) Facility (20 sources)celecoxib; Translations: [CeleBREX][facility]ergyThe [facility] (1 source)CetirizineDrug AllergyThe [facility] (20 sources)celecoxib; Translations: [celecoxib]Drug AllergyUnknown (qualifier value), Anxiety (finding)[facility] (10 sources)celecoxibDrug [id number], [facility] (1 source)celecoxibDrug [id number] Medications Current Medications MedicationDrug Class(es)DatesSig (Normalized)Sig (Original)0.25 MG, 0.5 MG Dose 3 ML semaglutide 0.68 MG/ML Pen Injector [Ozempic] (4 sources)Start: 21-32-3689Gvzljpa 2 mg/3 mL (0.25 mg or 0.5 mg dose) subcutaneous solution 0.25 mg, SubCutaneous, qWeek, # 3 mL, Refills(s) 0, Pharmacy: [facility]/pharmacy #[id number], 175.3, cm, 07/16/24 8:18:00 EST, Height/Length Dosing, 114, kg, 07/16/24 8:18:00 EST, Weight Dosing Start Date: 07/16/24 Status: Ordered Quantity: 3.0 Unit: mL Repeat number: 1 Indications: Personal history of nicotine dependence; Type 2 diabetes mellitus with other specified complication; Body mass index [BMI] 37.0-37.9, adult; Obesity, unspecified; H ypomagnesemia;Start: 92-30-3521Yispphx 2 mg/3 mL (0.25 mg or 0.5 mg dose) subcutaneous solution 0.25 mg, SubCutaneous, qWeek, # 3 mL, Refills(s) 0, Pharmacy: [facility]/pharmacy #[id number], 175.3, cm, 07/16/24 8:18:00 EST, Height/Length Dosing, 114, kg, 07/16/24 8:18:00 EST, Weight Dosing Start Date: 07/16/24 Status: Orderedacetaminophen 325 mg oral tablet (3 sources)Start: 29-35-7456zepb 2 tablets by mouth every six hours as needed for painacetaminophen 325 mg Tab 650 mg = 2 tab(s), Oral, q6hr, PRN Pain, Refills(s) 0 Start Date: 12/30/23 Status: Orderedacetaminophen 325 mg / HYDROcodone bitartrate 5 mg oral tablet (1 source)Opioid AgonistStart: 89-30-2650axhshyocraqbu-hydrocodone 325 mg-5 mg oral tablet Refill(s) 0, 12 tab(s), 0 Refill(s) Start Date: 11/14/24 Status: Ordered Repeat number: 1amLODIPine 5 mg oral tablet (20 sources)Dihydropyridine Calcium Channel BlockerStart: 91-87-4641sbqp 1 tablet by mouth once dailyAmlodipine 5 mg tablet Active 5 MG PO Daily April 17, 2025 10:39am Complies with drug therapyStart: 07-20-3500gqAXXYJfpf 5 mg Tab See Instructions, TAKE 1 TABLET DAILY, # 90 tab(s), Refills(s) 3, Pharmacy: [facility], 174, cm, 10/08/24 7:59:00 EDT, Height/Length Dosing, 113, kg, 10/08/24 7:59:00 EDT, Weight Dosing Start Date: 10/16/24 Status: Ordered Quantity: 90.0 Unit: tab(s) Repeat number: 1Start: 35-67-9824bgcj 10 mg by mouth once dailyAmlodipine Active 10 MG PO Daily September 09, 2023 12:00am Start: 08-19-2023 End: 52-19-3272kwsw 2 tablets by mouth once dailyAmlodipine 5 mg tablet Discontinued 10 MG PO Daily September 08, 2023 11:00pm April 17, 2025 10:40am Start: 14-80-4142thSXXOHunj 5 mg Tab See Instructions, TAKE 1 TABLET DAILY, # 90 tab(s), Refills(s) 1, Pharmacy: [facility], 175.3, cm, 01/13/24 9:06:00 EDT, Height/Length Dosing, 110.9, kg, 01/13/24 9:06:00 EDT, Weight Dosing Start Date: 01/30/24 Status: Orderedamoxicillin 500 mg oral capsule (2 sources)Penicillin-class AntibacterialStart: 45-49-5252dcxd 1 capsule by mouth every twelve hoursamoxicillin 500 mg Cap 500 mg = 1 cap(s), Oral, q12hr, # 20 cap(s), Refills(s) 0, Pharmacy: [facility]/pharmacy #[id number], 175.3, cm, 01/05/24 7:50:00 EDT, Height/Length Dosing, 110, kg, 01/05/24 7:50:00 EDT, Weight Dosing Start Date: 01/05/24 Status: Orderedaspirin 81 mg delayed release oral tablet (19 sources)Platelet Aggregation Inhibitor, Nonsteroidal Anti-inflammatory Drug Start: 95-43-4823hejh 1 tablet by mouth once dailyaspirin 81 mg Oral EC Tab 81 mg = 1 tab(s), Oral, Daily, # 90 tab(s), Refills(s) 0, Pharmacy: [facility], 174.5, cm, 06/13/23 8:07:00 EST, Height/Length Dosing, 102.3, kg, 06/13/23 8:07:00 EST, Weight Dosing Start Date: 06/13/23 Status: Orderedatorvastatin 20 mg oral tablet (20 sources)HMG-CoA Reductase InhibitorStart: 22-10-0166tkif 1 tablet by mouth once dailyAtorvastatin 20 mg tablet Active 20 MG PO Daily March 20, 2025 11:00pm Complies with drug therapyStart: 01-30-2024 End: 18-86-6123mihf 1 tablet by mouth once dailyAtorvastatin 40 mg tablet Discontinued 40 MG PO Daily March 14, 2025 11:00pm March 21, 2025 11:08am Start: 07-83-8790apvc 1 tablet by mouth once dailyatorvastatin 40 mg Tab 40 mg = 1 tab(s), Oral, Daily, # 90 tab(s), Refills(s) 1, Pharmacy: [facility], 174.5, cm, 06/13/23 8:07:00 EST, Height/Length Dosing, 102.3, kg, 06/13/23 8:07:00 EST, Weight Dosing Start Date: 06/13/23 Status: OrderedStart: 70-87-8237xbyw 1 tablet by mouth at bedtimeatorvastatin 20 mg Tab 20 mg = 1 tab(s), Oral, Bedtime, # 90 tab(s), Refills(s) 1, Pharmacy: [facility], 174.5, cm, 02/14/23 7:27:00 EDT, Height/Length Dosing, 115.8, kg, 02/14/23 7:27:00 EDT, Weight Dosing Start Date: 02/14/23 Status: OrderedStart: 22-57-3305tyso 1 tablet by mouth at bedtimeatorvastatin 20 mg Tab 20 mg = 1 tab(s), Oral, Bedtime, Refills(s) 0 Start Date: 01/13/23 Status: Orderedciprofloxacin 500 mg oral tablet (15 sources)Quinolone AntimicrobialStart: 11-14-2024 End: 18-79-5161nbui 1 tablet by mouth every twelve hoursCipro [...] and giddiness; Other microscopic hematuria;Start: 12-22-2023 End: 25-16-3573uyxo 1 tablet by mouth every twelve hoursCipro 500 mg Tab 500 mg = 1 tab(s), Oral, q12hr, X 7 day(s), # 14 tab(s), Refills(s) 0, Pharmacy: [facility], 172, cm, 12/22/23 7:41:00 EDT, Height/Length Dosing, 107.8, kg, 12/22/23 7:41:00 EDT, Weight Dosing Start Date: 12/22/23 Stop Date: 12/29/23 Status: OrderedStart: 23-94-7211Vamni 500 mg Tab See Instructions, Take 1 tab day prior to procedure and 1 tab day of procdure - afterwards, # 2 tab(s), Refills(s) 0, Pharmacy: [facility]/pharmacy #[id number], 174.5, cm, 09/22/23 12:37:00 EDT, Height/Length Dosing, 105.9, kg, 09/22/23 12:37:00 EDT, Weight Dosing Start Date: 09/27/23 Status: OrderedStart: 36-51-2876bimh 1 tablet by mouth twice dailyCipro 500 mg Tab 500 mg = 1 tab(s), Oral, BID, start 3 days prior to procedure, # 14 tab(s), Refills(s) 0, Pharmacy: [facility]/pharmacy #[id number], 174.5, cm, 07/27/23 11:17:00 EST, Height/Length Dosing, 102.3,kg, 07/27/23 11:17:00 EST, Weight Dosing Start Date: 08/03/23 Status: OrderedStart: 14-18-9756Qudqk 500 mg Tab See Instructions, Take 1 tab day prior to procedure and 1 tab day of procdure - afterwards, # 2 tab(s), Refills(s) 0, Pharmacy: [facility]/pharmacy #[id number], 175.4, cm, 06/28/23 7:53:00 EST, Height/Length Dosing, 106.8, kg, 06/28/23 7:53:00 EST, Weight Dosing Start Date: 06/28/23 Status: OrderedStart: 04-04-2023 End: 25-42-0964revh 1 tablet by mouth every twelve hoursCipro 500 mg Tab 500 mg = 1 tab(s), Oral, q12hr, X 10 day(s), # 20 tab(s), Refills(s) 0 Start Date: 04/04/23 Stop Date: 04/14/23 Status: Orderedfamotidine 20 mg oral tablet (2 sources)Histamine-2 Receptor AntagonistStart: 79-74-4459ulbq 1 tablet by mouth twice dailyPepcid 20 mg Tab 20 mg = 1 tab(s), Oral, BID, # 180 tab(s), Refills(s) 0, Pharmacy: [facility], 172, cm, 12/27/23 7:51:00 EDT, Height/Length Dosing, 109.8, kg, 12/27/23 7:51:00 EDT, Weight Dosing Start Date: 12/27/23 Status: OrderedFreestyle Alejandra 2 Flash Glucose Monitoring 14 Day System ([place]) (6 sources)Start: 38-25-3621Ngcozjivf Alejandra 2 Flash Glucose Monitoring 14 Day System ([place]) Freestyle Alejandra 2 Flash Glucose Monitoring 14 Day System ([place]), See Instructions, 1 EA, 0, Freestyle Alejandra Flash Glucose Monitoring 14 Day System ([place]), [facility]/pharmacy #[id number], Supply, 174.5, cm, 02/14/23 7:27:00 EDT, Height/LengthDosing, 115.8, kg, 02/14/23 7:27:00 EDT, Weight Dosing Start Date: 02/14/23 Status: OrderedFreestyle Alejandra Flash 2 Glucose Monitoring 14 Day System ([place]) (6 sources)Start: 53-31-5986Oybbwvjib Alejandra Flash 2 Glucose Monitoring 14 Day System (Sensor) Freestyle Alejandra Flash 2 Glucose Monitoring 14 Day System (Sensor), See Instructions, 6 EA, 0, Freestyle Alejandra Flash Glucose Monitoring 14 Day System (Sensor). Replace sensor every 14 days., [facility]/pharmacy #[id number], Supply, 174.5, cm, 02/14/23 7:27:00 EDT, Height/Length Dosing, 115.8, kg, 02/14/23 7:27:00 EDT, Weight Dosing Start Date: 02/14/23 Status: OrderedglipiZIDE 5 mg oral tablet (20 sources)SulfonylureaStart: 18-58-1746sqwl 1 tablet by mouth once daily Glipizide 5 mg tablet Active 5 MG PO Daily 30 April 08, 2025 12:00am Complies with drug therapyStart: 09-09-2023 End: 71-87-4918yrdr 1 tablet by mouth once dailyGlipizide 5 mg tablet Discontinued 5 MG PO Daily September 08, 2023 11:00pm March 15, 2025 7:38am Start: 26-82-6115mwmd 2 tablets by mouth twice dailyglipiZIDE 5 mg Tab 10 mg = 2 tab(s), Oral, BID, # 360 tab(s), Refills(s) 1, Pharmacy: [facility], 174.5, cm, 05/26/23 9:14:00 EST, Height/Length Dosing, 109.1, kg, 05/26/23 9:14:00 EST, Weight Dosing Start Date: 05/26/23 Status: OrderedStart: 44-85-2336trvk 1 tablet by mouth twice dailyglipiZIDE 5 mg Tab 5 mg = 1 tab(s), Oral, BID, # 90 tab(s), Refills(s) 1, Pharmacy: [facility], 174.5, cm, 05/16/23 7:26:00 EST, Height/Length Dosing, 113.4, kg, 05/16/23 7:26:00 EST, Weight Dosing Start Date: 05/16/23 Status: Ordered Start: 60-81-5020rtvz 1 tablet by mouth once dailyglipiZIDE 5 mg Tab 5 mg = 1 tab(s), Oral, Daily, # 90 tab(s), Refills(s) 1, Pharmacy: [facility], 174.5, cm, 02/14/23 7:27:00 EDT, Height/Length Dosing, 115.8, kg, 02/14/23 7:27:00 EDT, Weight Dosing Start Date: 02/14/23 Status: OrderedStart: 44-65-9384cedt 1 tablet by mouth in the morningglipiZIDE 5 mg Tab See Instructions, Take one orally in the morning if blood sugar is > 170, Refi lls(s) 0 Start Date: 01/13/23 Status: OrderedhydroCHLOROthiazide 12.5 mg oral tablet (1 source)Thiazide DiureticStart: 69-10-6975kmge 1 tablet by mouth once daily Hydrochlorothiazide 12.5 mg tablet Active 12.5 MG PO Daily 90 April 17, 2025 12:00am Complies with drug therapyhydroCHLOROthiazide 12.5 mg / lisinopril 20 mg oral tablet (20 sources)Thiazide Diuretic, Angiotensin Converting Enzyme InhibitorStart: 96-77-8967akehimhtwkprarxnbsm-lisinopril 12.5 mg-20 mg Tab 1 tab(s), Oral, Daily, 90 tab(s), Refill(s) 0, other reason (Rx) Start Date: 10/19/23 Status: OrderedStart: 05-18-2017 End: 51-77-7343kiyg 1 tablet by mouth once dailyLisinopril-Hydrochlorothiazide 20-12.5 tablet Discontinued 1 TAB PO Daily May 18, 2017 12:00am September 09, 2023 10:40amStart: 04-04-2017 End: 52-42-8561xtxs 1 tablet by mouth once dailyLisinopril-Hydrochlorothiazide 10-12.5 mg Tablet Discontinued 1 TAB PO Daily April 03, 2017 11:00pm May 18, 2017 12:12pm htnlisinopril 40 mg oral tablet (20 sources)Angiotensin Converting Enzyme InhibitorStart: 98-64-4498fsws 1 tablet by mouth once dailyLisinopril 40 mg tablet Active 40 MG PO Daily March 14, 2025 11:00pm Complies with drug therapyStart: 12-30-2023 End: 31-72-6712xpujatzgdj 20 mg Tab 40 mg = 2 tab(s), Tab, Oral, NOW, Start date 12/30/23 12:26:00 PM EDT, 12/30/2411:26:00 EDT Start Date: 12/30/23 Stop Date: 12/30/23 Status: Sdascfuti83 hr metFORMIN hydrochloride 500 mg extended release oral tablet (20 sources)BiguanideStart: 51-32-3457mfkx 2 tablets by mouth twice daily Glucophage XR 500 mg Tab-ER 1,000 mg = 2 tab(s), Oral, BID, # 360 tab(s), Refills(s) 3, Pharmacy: [facility], 174, cm, 10/08/24 7:59:00 EDT, Height/Length Dosing, 113, kg, 257:59:00 EDT, Weight Dosing Start Date: 10/08/24 Status: Ordered Quantity: 360.0 Unit: tab(s) Repeat number: 4Start: 90-04-4313huva 2 tablets by mouth twice dailyGlucophage XR 500 mg Tab-ER 1,000 mg = 2 tab(s), Oral, BID, # 360 tab(s), Refills(s) 1, Pharmacy: [facility], 175.3, cm, 01/13/24 9:06:00 EDT, Height/Length Dosing, 110.9, kg, 01/13/24 9:06:00 EDT, Weight Dosing Start Date: 04/12/24 Status: OrderedStart: 82-89-7296yucn 2 tablets by mouth twice dailyGlucophage XR 500 mg Tab-ER 1,000 mg = 2 tab(s), Oral, BID, # 360 tab(s), Refills(s) 1, Pharmacy: [facility], 174, cm, 07/26/23 10:21:00 EST, Height/Length Dosing, 104.8, kg, 07/26/23 10:21:00 EST, Weight Dosing Start Date: 07/26/23 Status: OrderedStart: 00-66-9882rrgj 2 tablets by mouth twice dailyGlucophage XR 500 mg Tab-ER 1,000 mg = 2 tab(s), Oral, BID, # 360 tab(s), Refills(s) 1, Pharmacy: [facility], 174.5, cm, 06/13/23 8:07:00 EST, Height/Length Dosing, 102.3, kg, 06/13/23 8:07:00 EST, Weight Dosing Start Date: 06/13/23 Status: OrderedStart: 11-15-2022 End: 72-13-1121rozr 2 tablets by mouth once dailymetformin 500 mg Tab 1,000 mg = 2 tab(s), Oral, Daily, X 90 day(s), # 180 tab(s), Refills(s) 3, Pharmacy: [facility] Start Date: 11/15/22 Stop Date: 11/10/23 Status: OrderedStart: 04-04-2017 End: 95-94-4283wdqa 1 tablet by mouth twice dailyMetformin 500 mg Tablet Discontinued 500 MG PO Twice daily April 03, 2017 11:00pm March 8:17am dmmetFORMIN (Glucophage) 500 MG tablet every 12 (twelve) hours Logqxb11 hr metoprolol succinate 25 mg extended release oral tablet (20 sources)beta-Adrenergic BlockerStart: 04-17-2025 End: 98-53-5152ytte 1 tablet by mouth twice dailyMetoprolol Succinate 25 mg tablet extended release 24 hr Active 25 MG PO Twice daily 180 1 2024 10:40am Complies with drug therapyStart: 08-19-2023 End: 19-74-1414ngpu 1 tablet by mouth once dailyMetoprolol Succinate 25 mg tablet extended release 24 hr Discontinued 25 MG PO Daily September 08, 2023 11:00pm April 17, 2025 10:40amMisc DME Prescription (20 sources)Start: 98-93-7113Zrryo: 40-27-6023Woxg DME Prescription [facility] D[facility] Prescription, See Instructions, 1 kit(s), 0, One Touch Ultra 2 glucose meter kit Use to tests sugars daily E11.9, [facility], Supply, 174.5, cm, 05/26/23 9:14:00 EST, Height/Length Dosing, 109.1, kg, 05/26/23 9:14:00 EST, Weight Dosing Start Date: 05/26/23 Status: OrderedMultiple Vitamins Tab (1 source)Start: 03-84-4170hdkp 1 tablet by mouth once dailyMultiple Vitamins Tab 1 tab(s), Oral, Daily, Refill(s) 0, Prophylaxis Start Date: 11/15/12 Status: Orderednaproxen sodium 220 mg oral tablet (20 sources)Nonsteroidal Anti-inflammatory DrugStart: 58-11-2804ejya 220 mg by mouth every twelve hours as neededAleve 220 mg, Oral, q12hr, se as needed, Refills(s) 0 Start Date: 01/13/24 Status: Ordered Repeat number: 1Start: 05-13-2017 End: 88-30-3200crea 2 tablets by mouth twice dailyNaproxen Sodium (Aleve) 220 mg Tablet Discontinued 440 MG PO Twice daily May 13, 2017 12:00amDecember 2016 12:56pm painomeprazole 20 mg delayed release oral capsule (20 sources)Proton Pump InhibitorStart: 56-24-3682kewb 1 capsule by mouth once dailyomeprazole 20 mg Cap-DR See Instructions, TAKE 1 CAPSULE BY MOUTH EVERY DAY, # 90 cap(s), Refills(s) 4, Pharmacy: [facility]/pharmacy #[id number], 174, cm, 09/03/24 8:26:00 EDT, Height/Length Dosing, 112, kg, 09/03/24 8:26:00 EDT, Weight Dosing Start Date: 09/04/24 Status: Ordered Quantity: 90.0 Unit: cap(s) Repeat number: 5 Start: 86-80-7142infz 1 capsule by mouth once dailyomeprazole 20 mg Cap-DR 20 mg = 1 cap(s), Oral, Daily, # 30 cap(s), Refills(s) 0 Start Date: 01/10/24Status: OrderedStart: 87-47-1705xjwr 1 capsule by mouth once dailyOmeprazole 40 mg capsule,delayed release(DR/EC) Active 40 MG PO Daily September 08, 2023 11:00pm Complies with drug therapyStart: 75-05-3441cbmr 1 capsule by mouth once daily omeprazole 40 mg Cap-DR 40 mg = 1 cap(s), Oral, Daily, # 90 cap(s), Refills(s) 0, [facility], 174, cm, 07/26/23 10:21:00 EST, Height/Length Dosing, 104.8, kg, 07/26/23 10:21:00 EST, Weight Dosing Start Date: 07/26/23 Status: OrderedStart: 92-73-0323xtzx 1 capsule by mouth once daily omeprazole 40 mg Cap-DR 40 mg = 1 cap(s), Oral, Daily, # 90 cap(s), Refills(s) 0, Pharmacy: [facility], 174.5, cm, 06/21/23 13:33:00 EST, Height/Length Dosing, 102.3, kg, 06/21/23 13:33:00 EST, Weight Dosing Start Date: 06/23/23 Status: Orderedondansetron 4 mg disintegrating oral tablet (10 sources)Serotonin-3 Receptor AntagonistStart: 58-84-3486kmqt 1 tablet by mouth every eight hours as needed for nausea and vomitingOndansetron 4 mg tablet,disintegrating Active 4 MG PO Every 8 hours as needed for nausea and vomiting March 17, 2025 11:00pm Complies with drug therapyStart: 29-43-5928xjdu 1 tablet by mouth every six hours as needed for nauseaZofran 4 mg Tab 4 mg = 1 tab(s), Oral, q6hr, PRN Nausea, # 8 tab(s), Refills(s) 1, Pharmacy: [facility]/pharmacy #[id number], 174, cm, 01/29/25 7:51:00 EDT, Height/Length Dosing, 109.7, kg, 01/29/25 7:51:00 EDT, Weight Dosing Start Date: 01/29/25 Status: Ordered Quantity: 8.0 Unit: tab(s) Repeat number: 2 Indications: Personal history of nicotine dependence; Dysuria; Obesity, unspecified; Body mass index [BMI]36.0-36.9, adult;Start: 09-09-2023 End: 80-27-7052Feripwovpxo 4 mg tablet,disintegrating Discontinued 4 MG TRANSLINGU Every 8 hours as needed for nausea September 08, 2023 11:00pm March 15, 2025 7:39amtamsulosin hydrochloride 0.4 mg oral capsule (20 sources)alpha-Adrenergic BlockerStart: 41-80-4858lnsl 1 capsule by mouth every twenty-four hourstamsulosin (Flomax) 0.4 MG 24 hr capsule Take 0.4 mg by mouth 05/07/2024 ActiveStart: 69-02-2176pwme 1 capsule by mouth once daily Tamsulosin 0.4 mg capsule Active 0.4 MG PO Daily March 14, 2025 11:00pm Complies with drug therapyStart: 13-69-2327wjlr 1 capsule by mouth once daily in the eveningtamsulosin 0.4 mg Cap 0.4 mg = 1 cap(s), Oral, qPM, # 90 cap(s), Refills(s) 3, Pharmacy: [facility], 175.3, cm, 01/13/24 9:06:00 EDT, Height/Length Dosing, 110.9, kg, 01/13/24 9:06:00 EDT, Weight Dosing Start Date: 01/20/24 Status: OrderedStart: 42-97-8748ecbk 1 capsule by mouth once daily in the eveningtamsulosin 0.4 mg Cap 0.4 mg = 1 cap(s), Oral, qPM, Refills(s) 0 Start Date: 06/14/23 Status: OrderedStart: 51-03-4508zhln 1 capsule by mouth at bedtimetamsulosin 0.4 mg Cap 0.4 mg = 1 cap(s), Oral, Bedtime, Refills(s) 0 Start Date: 01/13/23 Status: OrderedTherapeutic Multiple Vitamin Tab (12 sources)Start: 00-74-2575Fyxdcxidqeb Multiple Vitamin Tab See Instructions, 90 cap(s), Refill(s) 0, Oral Daily Start Date: 12/30/23 Status: Ordered Quantity: 90.0 Unit: cap(s) Repeat number: 1Start: 68-98-3159Ewxajefncql Multiple Vitamin Tab See Instructions, 90 cap(s), Refill(s) 0, Oral Daily Start Date: 12/30/23 Status: OrderedVitamin B Complex oral capsule (1 source)Start: 15-80-6335rlay 1 capsule by mouth once dailyVitamin B Complex oral capsule 1 cap(s), Oral, Daily, Refill(s) 0, Prophylaxis Start Date: 11/15/12 Status: Orderedvitamin b12 1 mg oral tablet (6 sources)Vitamin W55Yxodd: 63-81-8545dqps 1 tablet by mouth once daily cyanocobalamin 1000 mcg Tab 1,000 mcg = 1 tab(s), Oral, Daily, # 90 tab(s), Refills(s) 0, Pharmacy:[facility], 175.3, cm, 01/13/24 9:06:00 EDT, Height/Length Dosing, 110.9, kg, 01/13/24 9:06:00 EDT, Weight Dosing Start Date: 01/26/24 Status: OrderedStart: 82-75-8893qcpj 1 tablet by mouth once dailycyanocobalamin 1000 mcg Tab 1,000 mcg = 1 tab(s), Oral, Daily, # 30 tab(s), Refills(s) 0, Pharmacy:[facility]/pharmacy #[id number], 172, cm, 12/29/23 13:54:00 EDT, Height/Length Dosing, 109.8, kg, 12/29/23 13:54:00 EDT, Weight Dosing Start Date: 12/30/23 Status: OrderedZofran ODT 4 mg Tab-Dis (14 sources)Start: 26-36-0624pefa 1 tablet by mouth every eight hours as needed for nauseaZofran ODT 4 mg Tab-Dis 4 mg = 1 tab(s), Oral, q8hr, PRN Nausea/Vomiting, # 12 tab(s), Refills(s) 0, Pharmacy: [facility]/pharmacy #[id number], 172, cm, 08/15/23 7:04:00 EDT, Height/Length Dosing, 107.2, kg, 08/15/23 7:04:00 EDT, Weight Dosing Start Date: 08/15/23 Status: OrderedStart: 46-46-5564kfxn 1 tablet by mouth every eight hours as needed for nauseaZofran ODT 4 mg Tab-Dis 4 mg = 1 tab(s), Oral, q8hr, PRN Nausea/Vomiting, # 12 tab(s), Refills(s) 0, [id number] 175.4, cm, 06/28/23 7:53:00 EST, Height/Length Dosing, 106.8, kg, 06/28/23 7:53:00 EST, Weight Dosing Start Date: 07/13/23 Status: Ordered Completed/Discontinued Medications MedicationDrug Class(es)DatesSig (Normalized)Sig (Original)acetaminophen 325 mg / oxyCODONE hydrochloride 5 mg oral tablet (14 sources)Opioid AgonistStart: 05-19-2017 End: 44-41-3546wmwb 1 tablet by mouth every six hours as needed for pain Oxycodone-Acetaminophen 5-325 mg Tablet Discontinued 1 TAB PO Q6H as needed for Pain Scale 1 - 5 4014 0 May 19, 2017 12:00am September 09, 2023 10:44am Start: 04-04-2017 End: 63-84-9633wmkd 1 tablet by mouth every twelve hours as needed for pain Oxycodone-Acetaminophen (Percocet) 5-325 mg Tablet Discontinued 1 TAB PO Q12H as needed for Pain April 03, 2017 11:00pm September 09, 2023 10:40amamoxicillin 500 mg / clavulanate 125 mg oral tablet (2 sources)Penicillin-class AntibacterialStart: 04-03-2025 End: 51-40-6607cond 1 tablet by mouth every eight hoursAmoxicillin-Pot Clavulanate 500-125 mg tablet Discontinued 1 TAB PO Q8H 30 10 0 April 02, 2025 11:00pm April 17, 2025 10:21amcephalexin 500 mg oral capsule (13 sources)Cephalosporin AntibacterialStart: 50-35-3925Ijueme 500 mg Cap 500 mg = 1 cap(s), Oral, As Directed, Pt to take 1 tab the day before procedure and the 2nd tab the day of procedure once completed., # 2 cap(s), Refills(s) 0, Pharmacy: [facility]/pharmacy #[id number], 174.5, cm, 09/22/23 12:37:00 EDT, Height/Length Dosing, 105.9, kg, 09/22/23 12:37:00 EDT, Weight Dosing Start Date: 09/22/23 Status: OrderedStart: 05-26-2023 End: [id number] 1 capsule by mouth four times dailyKeflex 250 mg Cap 250 mg = 1 cap(s), Oral, QID, X 7 day(s), # 28 cap(s), Refills(s) 0, [id number] 174.5, cm, 05/26/23 9:14:00 EST, Height/Length Dosing, 109.1, kg, 05/26/23 9:14:00EST, Weight Dosing Start Date: 05/26/23 Stop Date: 06/02/23 Status: OrderedStart: 05-16-2023 End: [id number] 1 capsule by mouth four times dailyKeflex 250 mg Cap 250 mg = 1 cap(s), Oral, QID, X 7 day(s), # 28 cap(s), Refills(s) 0, Pharmacy: [facility], 174.5, cm, 05/16/23 7:26:00 EST, Height/Length Dosing, 113.4, kg, 05/16/23 7:26:00 EST, Weight Dosing Start Date: 05/16/23 Stop Date: 05/23/23 Status: OrderedStart: 05-19-2017 End: 06-74-5769sani 1 capsule by mouth every eight hoursCephalexin (Keflex) 500 mg capsule Discontinued 500 MG PO Q8H 21 7 0 May 19, 2017 12:00am September 09, 2023 10:39amcyclobenzaprine hydrochloride 10 mg oral tablet (7 sources)Muscle RelaxantStart: 04-04-2017 End: 25-33-5493suds 1 tablet by mouth three times daily as needed for muscle spasmsCyclobenzaprine 10 mg Tablet Discontinued 10 MG PO Three times daily as needed for Muscle Spasm April 03, 2017 11:00pm September 09, 2023 10:39am docusate sodium 50 mg / sennosides, skilled nursing 8.6 mg oral tablet (7 sources)Start: 05-19-2017 End: 66-07-8159ihrq 2 tablets by mouth twice dailySennosides-Docusate Sodium (Dok Plus) 8.6-50 mg Tablet Discontinued 2 TAB PO Twice daily 40 14 May 19, 2017 12:00am September 09, 2023 10:41amesomeprazole 40 mg delayed release oral capsule (7 sources)Proton Pump InhibitorStart: 04-04-2017 End: 47-92-8054lqas 1 capsule by mouth once dailyEsomeprazole Magnesium (Nexium) 40 mg Capsule,Delayed Release(Dr/Ec) Discontinued 40 MG PO Daily April 03, 2017 11:00pm May 18, 2017 12:15pm gerd72 hr fentaNYL 0.025 mg/hr transdermal system (7 sources)Opioid AgonistStart: 05-19-2017 End: 13-08-4787Hpxchxvr 25 mcg/hr Patch 72 Hour Discontinued 25 MCG TRANSDERML Every 72 hours 5 14 May 19, 2017 12:00am September 09, 2023 10:39amferrous sulfate 324 mg delayed release oral tablet (7 sources)Start: 05-19-2017 End: 85-76-5666ikwm 1 tablet by mouth twice dailyFerrous Sulfate 324 mg (65 mg iron) Tablet,Delayed Release (Dr/Ec) Discontinued 324 MG PO Twice daily 30 May 19, 2017 12:00am September 09, 2023 10:40amgabapentin 100 mg oral capsule (15 sources)Anti-epileptic AgentStart: 03-15-2025 End: 60-18-7037eugv 1 capsule by mouth once daily at bedtimeGabapentin 100 mg capsule Discontinued 100 MG PO Daily at bedtime March 14, 2025 11:00pm 2024 7:14amStart: 35-13-8156zbiz 1 capsule by mouth once daily at bedtimegabapentin 100 mg Cap 100 mg = 1 cap(s), Oral, Once a day (at bedtime), # 30 cap(s), Refills(s) 0, Pharmacy: [facility]/pharmacy #[id number], 175.3, cm, 05/18/24 7:58:00 EST, Height/Length Dosing, 112.1, kg, 05/18/24 7:58:00 EST, Weight Dosing Start Date: 05/18/24 Status: OrderedStart: 04-04-2017 End: 26-43-5352wkrn 1 capsule by mouth three times daily as needed for pain Gabapentin (Neurontin) 100 mg Capsule Discontinued 100 MG PO Three times daily as needed for Pain April 03, 2017 11:00pm May 13, 2017 9:09am levoFLOXacin 500 mg oral tablet (2 sources)Quinolone AntimicrobialStart: 04-08-2025 End: 09-09-2758aero 1 tablet by mouth once dailyLevofloxacin 500 mg tablet Discontinued 500 MG PO Daily 7 7 0 April 08, 2025 12:00am April 17, 2025 10:21amStart: 12-30-2023 End: 41-66-9307slbf 1 tablet by mouth every twenty-four hoursLevaquin 500 mg Tab 500 mg = 1 tab(s), Oral, q24hr, X 10 day(s), # 10 tab(s), Refills(s) 0, Pharmacy: [facility]/pharmacy #[id number], 172, cm, 12/29/23 13:54:00 EDT, Height/Length Dosing, 109.8, kg, 12/29/23 13:54:00 EDT, Weight Dosing Start Date: 12/30/23 Stop Date: 01/09/24 Status: Orderedmagnesium oxide 400 mg oral tablet (20 sources)Start: 80-08-1241zqatmobkg oxide 400 mg Tab 400 mg = 1 tab(s), Oral, TID, 90 EA, 0 Refill(s), TAKE 1 TABLET BY MOUTHTHREE TIMES A DAY, # 90 tab(s), Refills(s) 0, [id number] 174, cm, 11/14/24 10:26:00 EDT, Height/Length Dosing, 112.9, kg, 11/14/24 10:26:00 EDT, Weight Dosing Start Date: 11/14/24 Status: Ordered Quantity: 90.0 Unit: tab(s) Repeat number: 1Start: 89-35-4854dnwltydij oxide (Mag-Ox) 400 MG tablet Take 400 mg by mouth 02/20/2024 ActiveStart: 72-56-2890psyn 1 tablet by mouth three times daily magnesium oxide 400 mg Tab 400 mg, Oral, TID, dose change-last magnesium level completed 01/11/24-, #90 tab(s), Refills(s) 3, Pharmacy: [facility], 175.3, cm, 01/13/24 9:06:00 EDT, Height/Length Dosing, 110.9, kg, 01/13/24 9:06:00 EDT, Weight Dosing Start Date: 01/30/24 Status: OrderedStart: 78-99-4509dzuj 1 tablet by mouth twice dailymagnesium oxide 400 mg Tab 400 mg = 1 tab(s), Oral, BID, # 60 tab(s), Refills(s) 0, Pharmacy: [facility]/pharmacy #[id number], 172, cm, 12/29/23 13:54:00 EDT, Height/Length Dosing, 109.8, kg, 12/29/23 13:54:00 EDT, Weight Dosing Start Date: 12/30/23 Status: OrderedStart: 08-18-2023 take 1 tablet by mouth once dailyMagnesium Oxide 400 mg (241.3 mg magnesium) tablet Active 400 MG PO Daily September 08, 2023 11:00pm Complies with drug therapy Start: 78-92-9970rzmt 1 tablet by mouth once dailymagnesium oxide 400 mg Tab 400 mg = 1 tab(s), Oral, Daily, # 60 tab(s), Refills(s) 0, Pharmacy: [facility]/pharmacy #[id number], 175, cm, 06/14/23 10:52:00 EST, Height/Length Dosing, 102.3, kg, 06/14/23 10:52:00 EST, Weight Dosing Start Date: 06/15/23 Status: Orderedmetoprolol 1 mg/mL Inj (1 source)Start: 09-01-2023 End: 55-29-4606rslveb 10 mg intravenously oncemetoprolol 1 mg/mL Inj 10 mg = 10 mL, Injection, IV Push, Once, Stop date 09/01/23 10:51:00 AM EDT, Routine, Start date 09/01/23 11:00:00 AM EDT, 09/01/23 10:36:00 EDT Start Date: 09/01/23 Stop Date: 09/01/23 Status: Completedpantoprazole 40 mg delayed release oral tablet (7 sources)Proton Pump InhibitorStart: 05-18-2017 End: 60-24-9128hjkg 1 tablet by mouth once dailyPantoprazole 40 MG tablet,delayed release (DR/EC) Discontinued 40 MG PO Daily May 18, 2017 12:00am September 09, 2023 10:44ampotassium chloride 10 meq extended release oral capsule (20 sources)Start: 09-09-2023 End: 06-51-2820wsky 1 capsule by mouth once dailyPotassium Chloride 10 mEq capsule, extended release Discontinued 10 MEQ PO Daily September 08, 2023 11:00pm March 18, 2025 7:15amStart: 22-54-2954cylw 1 capsule by mouth once daily potassium chloride 10 mEq Cap-ER 10 mEq = 1 cap(s), Oral, Daily, # 30 cap(s), Refills(s) 0, Pharmacy: [facility]/pharmacy #[id number], 172, cm, 08/15/23 7:04:00 EDT, Height/Length Dosing, 107.2, kg, 08/15/23 7:04:00 EDT, Weight Dosing Start Date: 08/18/23 Status: OrderedStart: 67-28-3323gskw 1 capsule by mouth once daily potassium chloride 10 mEq Cap-ER 10 mEq = 1 cap(s), Oral, Daily, # 30 cap(s), Refills(s) 0, Pharmacy: [facility]/pharmacy #[id number], 175, cm, 06/14/23 10:52:00 EST, Height/Length Dosing, 102.3, kg, 06/14/23 10:52:00 EST, Weight Dosing Start Date: 06/15/23 Status: OrderedStart: 05-26-2023 End: 54-49-4988xwhs 1 tablet by mouth twice dailyPotassium Chloride (Eqv-K-Tab) 20 mEq oral tablet, extended release 20 mEq = 1 tab(s), Oral, BID, X7 day(s), # 14 tab(s), Refills(s) 0, Pharmacy: [facility]/pharmacy #[id number], 174.5, cm, 05/26/23 9:14:00 EST,Height/Length Dosing, 109.1, kg, 05/26/23 9:14:00 EST, Weight Dosing Start Date: 05/26/23 Stop Date: 06/02/23 Status: OrderedSemaglutide (4 sources)Start: 03-15-2025 End: 09-88-9375Ntrkpmfztmv (Ozempic) 0.25 mg or 0.5 mg (2 mg/3 mL) pen injector Discontinued 0.25 MG SUBCUT every week March 14, 2025 11:00pm March 18, 2025 7:15am for 4 weeksStart: 03-15-2025 End: 39-75-2841Kcttclteixy (Ozempic) 0.25 mg or 0.5 mg (2 mg/3 mL) pen injector Discontinued 0.25 MG SUBCUT every week March 15, 2025 12:00am March 18, 2025 8:15am for 4 weeks Problems Problem ClassificationProblemDateDocumented DateEpisodic/ChronicAbdominal hernia (7 sources)Gastroesophageal reflux disease with hiatal hernia; Translations: [Diaphragmatic hernia without obstruction or gangrene]24-58-9472Ozwuilob Abdominal pain (20 sources)Right flank ezss26-59-8138WrykqnmmYnygsal-emgezys disorders (20 sources)Alcohol abuse; Translations: [Nondependent alcohol abuse in remission]Onset: 154645-51-1237TfqxmvvIgqjjpj on above:added per 07/13/2024 query response.Calculus of urinary tract (20 sources)Kidney stone; Translations: [Calculus of kidney]Onset: 06-21-2023 EpisodicCardiac dysrhythmias (20 sources)Kiwpeksmddy90-39-7477CrfdqfznVpjskrm kidney disease (9 sources)Chronic kidney disease stage 2; Translations: [Chronic kidney disease stage 3]99-38-4624UgoeomkObpkplxuxu associated with dizziness or vertigo (20 sources)Prtjgaxcf56-82-8031NjiaqwjuHgtpcesdte heart failure; nonhypertensive (20 sources)Diastolic yjmyrcdjqdq18-09-3238HrbjphfSshbgsdcmh and other anemia (1 source)Anemia; Translations: [Anemia, unspecified]Onset: 85-05-1070Vvsygmai Diabetes mellitus with complications (20 sources)Type 2 [...] metabolism (20 sources)Pure hypercholesterolemia, unspecified; Translations: [Hypercholesterolemia]Onset: 007932-82-5508KayeuruMlppytjvmg disorders (20 sources)Gastroesophageal reflux disease without esophagitis; Translations: [Gastro-esophageal reflux disease without esophagitis]Onset: 12-29-2023 35-63-8031SooxlisTrcdispdij disorders (4 sources)Esophageal disordersEssential hypertension (20 sources)Essential (primary) hypertension; Translations: [Hypertensive disorder]Onset: 660938-94-3695NfftcnjIhqib and electrolyte disorders (20 sources)Atbrzquxrbi43-10-3041IwkycndmSaianfowhvpza symptoms and ill-defined conditions (20 sources)Blood in urine; Translations: [Increased frequency of urination] Onset: 317375-60-7916WomvkrxfQpvxq valve disorders (20 sources)Heart csigdf24-47-1463ExgrvfjwCtghvfwblbz of prostate (20 sources)Benign prostatic hypertrophy with outflow obstruction; Translations: [Benign prostatic hyperplasia with lower urinary tract symptoms]Onset: 76-77-1749XfaccvlFephfpsfcofl with complications and secondary hypertension (3 sources)Hypertensive urgency ; Translations: [Hypertensive urgency]Onset: 02-56-9916WvagbjoApaheqj and fatigue (20 sources)Zmddcnc83-60-2642EjpbivzvWqmk disorders (20 sources)Recurrent major depressive episodes, moderate ; Translations: [Depressive disorder]Onset: 370992-88-6350OjdehcxFpfmsxd on above:added per 06/10/2023 query response.Nausea and vomiting (10 sources)Nausea and vomiting; Translations: [Nausea with vomiting, unspecified]80-31-6053GifiirkuCnfug aftercare (6 sources)Post-discharge qgganm-hu84-81li43-82-7949OwqmsroeAebwd aftercare (1 source)Long-term current use of drug therapy; Translations: [Other fpc (current) drug therapy]Onset: 76-30-8015ZzqishqxIzevo connective tissue disease (2 sources)Pain in right hand; Translations: [Pain in right hand]07-18-2024 EpisodicOther diseases of bladder and urethra (4 sources)Neurogenic dysfunction of the urinary bladder; Translations: [Neuromuscular dysfunction of bladder,unspecified]Onset: 72-78-4478KiefmzcWgdsx diseases of bladder and urethra (14 sources)Paralysis of ykczynx35-68-8397RhehuseIupel diseases of kidney and ureters (2 sources)Secondary hyperparathyroidism; Translations: [Secondary hyperparathyroidism of renal origin]05-77-6409OhuroumAtubp diseases of kidney and ureters (1 source)Urinary tract obstruction; Translations: [Other obstructive and reflux uropathy]Onset: 21-48-6557SaejnfoqGljau diseases of kidney and ureters (7 sources)Kidney disease; Translations: [Disorder of kidney and ureter, unspecified]00-39-7036PiktibfpVwfef lower respiratory disease (20 sources)Dyspnea on sfrmchuo41-70-1119WnlkgbfkVhndd male genital disorders (1 source)Disorder of prostate, unspecified; Translations: [DISORDER OF PROSTATE UNSPECIFIED]Onset: 07-43-2511PyxihfyfVbuyk male genital disorders (11 sources)Disorder of ahfavyqd03-71-9768XlkuyplaImngc male genital disorders (20 sources)Prostatic intraepithelial neoplasia; Translations: [Prostatic intraepithelial neoplasia]Onset: 99-44-7684DdxvgiuoXkbrr nervous system disorders (1 source)Bilateral carpal tunnel syndrome; Translations: [Carpal tunnel syndrome, bilateral upper limbs]73-96-1744IyzmlkjWlhtf nervous system disorders (1 source)Polyneuropathy; Translations: [Polyneuropathy, unspecified]05-22-2024 ChronicOther nervous system disorders (2 sources)Carpal tunnel syndrome of right wrist; Translations: [Carpal tunnel syndrome, right upper limb]27-23-0430PfbvcnkDdcap nutritional; endocrine; and metabolic disorders (1 source)Obese class II; Translations: [Body mass index (BMI) 37.0-37.9, adult] Onset: 18-70-2389HowbflsLwxqh nutritional; endocrine; and metabolic disorders (2 sources)Obesity; Translations: [Other obesity due to excess calories]Onset: 98-37-0577NbwpyolOnbtc nutritional; endocrine; and metabolic disorders (16 sources)Morbid kixoweq09-02-1751EldkgrmNqdyoii on above:added per 05/13/2023 query response.Other nutritional; endocrine; and metabolic disorders (20 sources)Hypomagnesemia; Translations: [Hypomagnesemia]Onset: 12-29-2023 61-91-3192FbjxcobLflca nutritional; endocrine; and metabolic disorders (18 sources)Body mass index 30+ - fkwwiri75-51-1080AkeiojoHmlwl screening for suspected conditions (not mental disorders or infectious disease) (20 sources)Raised prostate specific antigen; Translations: [Elevated prostate specific antigen [PSA]]Onset: 59-63-7487AvphfpseTqdudkdu codes; unclassified (20 sources)Grlbl82-58-9419XogzlvkaWnabywiso and history of mental health and substance abuse codes (10 sources)H/O: Disorder; Translations: [Personal history of nicotine dependence]Onset: 36-14-9203QshlkklcJdunpjfhvhl; intervertebral disc disorders; other back problems (7 sources)Lumbosacral spondylosis; Translations: [Spondylosis without myelopathy or radiculopathy, lumbosacral region]77-83-4022UuqhxxwEwlgkmb on above:Problem List clean-up per request of Phys. EHR CmteSpondylosis; intervertebral disc disorders; other back problems (7 sources)Spinal stenosis of lumbar region; Translations: [Spinal stenosis, lumbar region without neurogenic claudication]16-98-6853HvszjnozOxkyzwu on above:Problem List clean-up per request of Phys. EHR CmteUnclassified (20 sources)Patient encounter ybzryf86-82-2960Hwyoncxqrwfk (20 sources)Finding of sensation of fefcwwj20-72-4178Zqejqjw tract infections (20 sources)Urinary tract infectious disease; Translations: [Urinary tract infection, site not specified]Onset: 28-48-1108Fjuqjezu Results Test NameValueInterpretationReference RangeFacilityLaboratory - Chemistry and Chemistry - challengeOrdered By: Clara Encarnacion on 86-29-4225Uqaxqjjpn Ql (U) NegativeMarietta Osteopathic ClinicGlucose (U) [Mass/Vol]500 mg/dL [facility] ClinicKetones Ql (U)NegativeMarietta Osteopathic ClinicpH (U)6.5 [pH][facility]ittman Hospitalpecific gravity (U) [Rel density]1.010[facility] ClinicLaboratory - Specimen informationOrdered By: Clara Encarnacion on 14-82-2585Zmcptlvakt (U)cloudyMarietta Osteopathic ClinicColor (U)yellowMarietta Osteopathic Clinic Laboratory - UrinalysisOrdered By: Clara Encarnacion on 13-95-6923Uvozilzjg esterase Test strip Ql (U)moderateMarietta Osteopathic ClinicNitrite Ql (U)Negative [facility] ClinicProtein Ql (U)30mg/dLMarietta Osteopathic ClinicNo Panel InformationOrdered By: Clara Encarnacion on 98-63-9836Reigskf Glucose 338[facility]opathic ClinicUrine Occult BloodmoderateMarietta Osteopathic ClinicUrine Urobilinogen0.2EU/dLMarietta Osteopathic ClinicUrine Cultureon 07-48-8538Dcarxxmq identified Cx Nom (U)ORGANISM: Enterobacter cloacae complex (O:ENTCLOCPLX) [place] Count >100,000 Aerobic EMERSON Charge (NMIC56) SUSCEPTIBILITY [...] RESISTANT TO ALL B-LACTAM DRUGS. PERFORMED BY: [facility] [address] [place] [address] PATHOLOGIST THIRD HELPER JOCELYN NOEL M.D.[facility] Physician GroupComment on above: Performed By: #### CUU #### [facility] [address] [place] [address] USAUrine cultureOrdered By: Clara Encarnacion on 04-03-2025 Bacteria identified Cx Nom (U)Enterobacter cloacae complexAbnormalMarietta Osteopathic ClinicBasophils Auto (Bld) [#/Vol]Ordered By: Ivania Vale on 65-30-4173Sgmowozms (Bld) [#/Vol]0.1 10 3/uL0.0-0.1FMercy HealthBasophils/100 WBC Auto (Bld)Ordered By: Ivania Vale on 03-20-2025 Basophils/100 WBC (Bld)1.3 %0.2-2.0[facility] ClinicCholesterol in LDL Calc [Mass/Vol]Ordered By: Ivania Vale on 79-73-7517Jryxfaahbmj in LDL [Mass/Vol]68.2 mg/dLMarietta Osteopathic ClinicComment on above:<100 mg/dl XYGZRJY116-216 mg/dl NEAR OR ABOVE NAIPKWF034-430 mg/dl BORDERLINE ZOHE482-584 mg/dl HIGH>190 mg/dl VERY HIGHCholesterol in VLDL Calc [Mass/Vol]Ordered By: Ivania Vale on 49-04-6478Tbmxnpddzqa in VLDL [Mass/Vol]20.8 mg/dLMarietta Osteopathic ClinicEosinophils/100 WBC Auto (Bld)Ordered By: Ivania Vale on 12-89-0791Trnxcjdoeqm/100 WBC (Bld)2.4 %0.9-7.0[facility]opathic ClinicErythrocyte distribution width Auto (RBC) [Ratio]Ordered By: Ivania Vale on 65-09-1347Mszdrazvmpt distribution width (RBC) [Ratio]12.3 %11.0-15.0 [facility] ClinicGlobulin Calc (S) [Mass/Vol]Ordered By: IVANIA VALE on 34-57-5754Veexihax (S) [Mass/Vol]3.6 g/dLMarietta Osteopathic ClinicGlomerular filtration rate (GFR) estimation in non- AmericanOrdered By: IVANIA VLAE on 76-96-8364GVI/1.73 sq M.predicted among non-blacks MDRD (S/P/Bld) [Vol rate/Area]57 mL/min/{1.73_m2}Low>=60 mL/min/1.[address]m [address] [place], [place] [address]Glucose mean value [Mass/volume] in Blood Estimated from glycated hemoglobinOrdered By: Ivania Vale on 65-32-7601Pdsxfso glucose Estimated from glycated hemoglobin (Bld) [Mass/Vol]171 mg/dLMarietta Osteopathic ClinicHematocrit Auto (Bld) [Volume fraction]Ordered By: Ivania Vale on 18-61-6889Aiaaulpjov (Bld) [Volume fraction]40.1 %Low42.0-54.0[facility]opathic ClinicHemoglobin A1c percentageOrdered By: Ivania Vale on 03-20-2025 HbA1c (Bld) [Mass fraction]7.6 %High4.5-6.2FMercy Health Comment on above:ADA RECOMMENDED LIMIT 4.0 - 6.0ADA THERAPEUTIC TARGET < 7.0ACTION SUGGESTED> 7.0Hemoglobin [Mass/volume] in BloodOrdered By: Ivania Vale on 64-43-8368Lgooievkdy (Bld) [Mass/Vol]13.6 g/dLLow14.0-18.0[facility] ClinicLaboratory - Chemistry and Chemistry - challengeOrdered By: IVANIA VALE on 92-69-5909Fgfeurv [Mass/Vol]3.8 g/dL3.4-5.0[facility] ClinicALP [Catalytic activity/Vol]80 U/W83-591TkcilbsjfMarietta Osteopathic ClinicALT [Catalytic activity/Vol]27 U/Y00-63DwhxfehqcMarietta Osteopathic ClinicAST [Catalytic activity/Vol]18 U/F50-51HgbhzuwwgMarietta Osteopathic ClinicBilirubin [Mass/Vol]1.5 mg/dLHigh0.2-1.0[facility] Calcium [Mass/Vol]8.7 mg/dL8.5-10.1FMercy HealthChloride [Moles/Vol]102 mmol/S90-545UduuyaxjgMarietta Osteopathic ClinicCO2 [Moles/Vol]30.4 mmol/L21.0-32.0[facility] ClinicCreatinine [Mass/Vol]1.25 mg/dL 0.70-1.30[facility]opathic ClinicGFR/1.73 sq M.predicted MDRD (S/P/Bld) [Vol rate/Area]mL/min/{1.73_m2}>=60 mL/min/1.73m 2FMercy HealthGlucose [Mass/Vol]213 mg/zQRfiq56-454DnzrukensMarietta Osteopathic Clinic Magnesium [Mass/Vol]0.7 mg/dLCritically low1.8-2.4FMercy HealthComment on above:RESULTS CALLED TO DARREN CASHotassium [Moles/Vol] 4.2 mmol/L3.5-5.1FMercy HealthProtein [Mass/Vol]7.4 g/dL 6.4-8.2FKettering Memorial Hospitalodium [Moles/Vol]143 mmol/U729-616 [facility] ClinicUrea nitrogen [Mass/Vol]12.0 mg/dL7.0-18.0 [facility] ClinicUrea nitrogen/Creatinine [Mass ratio]9.6 mg/mg [facility] ClinicLaboratory - Chemistry and Chemistry - challengeOrdered By: Ivania Vale on 52-22-7581Ozhnlinsuzm [Mass/Vol]134 mg/dL <=200M[facility] ClinicCholesterol in HDL [Mass/Vol]45 mg/dL40-60 [facility] ClinicComment on above:> or =60 mg/dl - LOW CARDIOVASCULAR RISK<40 mg/dl - HIGH CARDIOVASCULAR RISKTriglyceride [Mass/Vol] 104 mg/dL<=150M[facility] ClinicLaboratory - Hematology and Cell countsOrdered By: Ivania Vale on 47-75-4213Udznhdiy granulocytes/100 WBC (Bld) 0.4 %0.0-0.5FMercy HealthLeukocytes [#/volume] corrected for nucleated erythrocytes in Blood by Automated counOrdered By: Ivania Vale on 28-42-5102TBC corrected for nucl RBC Auto (Bld) [#/Vol]5.4 10 3/uL4.0-11.0 [facility] ClinicLymphocytes Auto (Bld) [#/Vol]Ordered By: Ivania Vale on 29-90-2875Tvsvgvbwyzr (Bld) [#/Vol]1.4 10 3/uL1.2-3.8[facility]opathic ClinicLymphocytes/100 WBC Auto (Bld)Ordered By: Ivania Vale on 48-82-6594Cljamiqokro/100 WBC (Bld)25.0 %20.5-60.0[facility] Auto (RBC) [Entitic mass]Ordered By: Ivania Vale on 56-98-2681PJQ (RBC) [Entitic mass]33.1 pg25.9-34.0[facility]opathic ClinicMCHC Auto (RBC) [Mass/Vol]Ordered By: Ivania Vale on 76-39-8725OIZT (RBC) [Mass/Vol]33.9 g/dL29.9-35.2FMercy HealthMCV Auto (RBC) [Entitic vol] Ordered By: Ivania Vale on 57-54-3439LUY (RBC) [Entitic vol]97.6 fLHigh 80.0-94.0[facility] ClinicMonocytes Auto (Bld) [#/Vol]Ordered By: Ivania Vale on 80-32-7275Jixvjujvw (Bld) [#/Vol]0.6 10 3/uL0.3-0.8[facility] ClinicMonocytes/100 WBC Auto (Bld)Ordered By: Ivania Patelp on 84-36-8011Vgzfqbizj/100 WBC (Bld)11.6 %1.7-12.0[facility] Neutrophils Auto (Bld) [#/Vol]Ordered By: Ivania Vale on 28-97-8051Zyjmankonsu (Bld) [#/Vol]3.2 10 3/uL1.4-6.5FMercy HealthNeutrophils/100 WBC Auto (Bld)Ordered By: Ivania Vale on 29-20-6367Pookmmpxcer/100 WBC (Bld) 59.3 %43.0-75.0[facility] ClinicNo Panel InformationOrdered By: Ivania Vale on 48-94-8417Tktszcarrgj # (Auto)0.1 10 3/uL0.0-0.7FMercy HealthImmature Granulocyte # (Auto)0.02 10 3/uL0.00-0.03 [facility] ClinicPlatelet mean volume Auto (Bld) [Entitic vol] Ordered By: Ivania Vale on 11-64-4375Ooythkpe mean volume (Bld) [Entitic vol] 9.7 fL9.5-13.5FMercy HealthPlatelets Auto (Bld) [#/Vol] Ordered By: Ivania Vale on 51-76-4777Tktqynono (Bld) [#/Vol]212 10 3/wG373-937 [facility] ClinicRBC Auto (Bld) [#/Vol]Ordered By: Ivania Vale on 71-49-6435ZIL (Bld) [#/Vol]4.11 10 6/uLLow4.70-6.10W[facility]sworth-Rittman Hospitalerum or plasma albumin/globulin mass ratioOrdered By: IVANIA VALE on 77-19-5663Txyqalc/Globulin [Mass ratio]1.1 {ratio}[facility]-Rittman Hospitalerum or plasma anion gap determinationOrdered By: IVANIA VALE on 03-65-5215Segeq gap [Moles/Vol]14.8 mmol/LFKettering Memorial Hospitalerum or plasma total cholesterol/high density lipoprotein (HDL) cholesterol mass rat Ordered By: Ivania Vale on 32-22-4499Kiyowojxuyg.total/Cholesterol in HDL [Mass ratio]3.0 {ratio}[facility] ClinicComment on above:3.3 - 4.4 LOW RISK4.4 - 7.1 AVERAGE RISK7.1 - 11.0 MODERATE RISK>11.0 HIGH RISKAmbulatory Visit Summaryon 08-10-7490Nbntirjupy Visit SummaryAmbulatory Visit Summary ALICJA REYES :1955 [...] AM EST With: MARINO KEARNS CNP Where: [place] [id number]- Tuesday2025 9:15 AM EST With: Bryant TAO MD Where: [facility] [place] [address] [place] [address]- Tuesday2025 8:00 AM EST With: Where: [facility] [address] [address]- You Need to Schedule the Following Appointments Follow Up with Bryant TAO MD, URL When: Comments: 3 mos w/ PSA F&T Where: [address] [address]- Medications What How Much When [...] BS twice daily- will bring equipment to [facility] f/ u to update brand [...] with us by (more content not included)...[facility]/Clinic Noteon 77-25-1659Kvebxyh Office/Clinic NoteUrology Office/Clinic Note Chief Complaint Pt [...] 16.7% --> started having PSAs checked at [facility] 08/07/24 - 8.1 % 7.4% (PSAD 0.31) 09/24/24 - 2.0 & 20.0% 03/04/25 - 11.3 & 3.5% MRI of prostate 07/21/23 [facility] [place] - A focal area involving the anterior [...] longer wishes to have PSA checked at [facility] [place], will be using [facility]. -Repeat PSA F&T [...] bladder trabeculations and (more content not included)... [facility]:Result Comment: Electronically Signed By: Bryant TAO MD\.br\Date and Time Signed: 03/19/25 10:05 EDT\.br\Electronically Co-Signed By: Alis Velásquez\.br\Date and Time Co-Signed: 03/19/25 10:02 EDTC Urineon [id number] identified Cx Nom (U)Microbiology PROCEDURE: Urine Culture [R1] SOURCE: U CleanCatch BODY SITE: COLLECTED DATE/TIME: 03/04/2025 11:13 EDT RECEIVED DATE/TIME: 03/04/2025 20:14 EDT START DATE/TIME: 03/04/2025 20:14 EDT FREE TEXT SOURCE: SHIRA WHATLEY, MARINO KEARNS CNP, MARINO Butler FINAL REPORTS Final Report [] Verified Date/Time: 03/06/2025 06:55 EDT <10,000 cfu/ml Mixed skin contaminants Performing Locations R1: This test was performed at: [facility], [address] [place] [address], [facility] , , GlfwxqFnwactAdams County HospitalComment on above:Performed By: #### [id number] #### [address] [address]Ccznmczrrse 40-02-4884Fqckkxoca [Mass/Vol]0.5 mg/dLAbnormal 1.3-2.4FWVUMedicine Harrison Community HospitalComment on above:Result Comment: Critical Result Verified by Repeat Analysis Critical Result S_M.5 Called to and read back by: DR ANDRE at: 03/04/2025 20:42:04 by:MJPerformed By: #### [id number] #### [facility] [address] [place] [address] [id number] Urineon 17-82-2512Lykqopgk identified Cx Nom (U)Microbiology PROCEDURE: Urine Culture [R1] SOURCE: U CleanCatch BODY SITE: COLLECTED DATE/TIME: 01/29/2025 11:35 EDT RECEIVED DATE/TIME: 01/29/2025 16:55 EDT START DATE/TIME: 01/29/2025 16:56 EDT FREE TEXT SOURCE: MARINO KEARNS CNP, CNP, SHELLY A FINAL REPORTS Final Report [] Verified Date/Time: 01/31/2025 09:30 EDT 1,000 cfu/ml Mixed skin contaminants Performing Locations R1: This test was performed at: [facility], [address] [place] [address], [address] , , ObhhcxPmbywvDayton VA Medical CenterComment on above:Performed By: #### [id number] #### [facility] [address] [place] [address]Vysfinkojz Visit Summaryon 23-28-0066Vqknnwimqq Visit Summary Ambulatory Visit Summary ALICJA REYES [...] AM EDT With: Where: [facility] [address] [address]- Tuesday 8:15 AM EDT With: EMMY REYNOLDS, Bryant Vogel Where: [facility] [address] [place] [address]- Tuesday 8:40 AM EST With: MARINO KEARNS CNP Where: [address] [address]- Tuesday2025 8:00 AM EST With: Where: [address] [address]- Medications What How Much When Instructions Unchanged [...] BS twice daily- will bring equipment to [facility] f/ u to update brand [...] signed up for this yet, please contact [employer] at [phone] to get signed up today. Language Information Language assistance services are available as needed. [facility] Medicine Office/Clinic Noteon 78-36-9948Ypxfvz Medicine Office/Clinic NoteHarley Private Hospital Medicine Office/Clinic Note Chief Complaint Possible UTI The patient presents with dysuria and associated nausea. HPI Staff Pt presents today due to possible UTI. Pt does have Hx of UTI & NGB. Does CIC 3x/day. Does see [facility]. Onset: Sx started Tuesday Symptoms: burning [...] He has an upcoming appointment with a stock and station agent, expressing dissatisfaction with previous consultations. Review of [...] Medium Risk, 11/15/2012 Saima (more content not included)...[facility] Medical CenterComment on above:Result Comment: Electronically Signed [...] AM EDT With: Where: [facility] [address] [address]- Tuesday 8:15 AM EDT With: Bryant TAO MD Where: [facility] [address] [place] [address]- Tuesday 8:40 AM EST With: MARINO KEARNS CNP Where: [address] [address]- Tuesday2025 8:00 AM EST With: Where: [address] [address]- You Need to Schedule the Following Appointments Follow Up with MARINO KEARNS CNP, FAM When: Within 3 months Comments: Diabetes Where: [address] [place] [phone] Business (1) Medications What How Much When [...] (acetaminophen-hydrocodone 325 mg-5 mg (more content not included)...[facility] Medicine Office/Clinic Noteon 41-73-4754Ocueuh Medicine Office/Clinic NoteFapratt clinic / [facility] Medicine Office/Clinic Note Chief Complaint The [...] glucose control. Ordered: HgbA1c Lab Specimen Collect 16853 2. Low magnesium level (R79.0: Abnormal level of blood mineral) - Awaiting magnesium levels Ordered: Lab Specimen Collect 94573 Magnesium Level 3. BMI 37.0-37.9, adult (Z68.37: Body mass index [BMI] 37.0-37.9, adult) BMI 37.19 Morbid (severe) obesity due to excess calories (E66.01: Morbid (severe) obesity due to excess calories) - Discussed the impact of alcohol consumption on weight and overall health. Follow-up With When Contact Information MARINO KEARNS CNP, FAM Within 3 months [address] [place] [address] Business (1) Additional Instructions: Diabetes [...] Medications Aleve, 220 m (more content not included)...[facility] Comment on above:Result Comment: Electronically Signed By: MARINO KEARNS CNP\.br\Date and Time Signed: 01/08/25 08:28 OUQJujM4sxb 93-47-2804MlP7x (Bld) [Mass fraction]7.7 %High<=5.9Newark HospitalComment on above: Performed By: #### [id number] #### Anjel [facility] [address] [place] [address]V Urineon 47-52-9945Luwtntno identified Cx Nom (U)Microbiology PROCEDURE: Urine Culture [...] Locations R1: This test was performed at: [facility], [address] [place] [address], [address]- , , FscsecRclgsaAdams County HospitalComment on above:Performed By: #### [id number] #### [facility] [address] [place] [address]Borpyqldfd Visit Summaryon 15-70-4678Qwamyircqm Visit Summary Ambulatory Visit Summary ALICJA REYES :1955 Visit Date:11/14/2024 Ambulatory Visit Instructions Your Diagnosis Dizziness Microhematuria Tests Performed Urine Culture -- Results Pending -- Please visit your patient portal for your results or contact your primary care physician. Your Care Team Attending Physician - SHIRA ROPE COILING MACHINE OPERATOR, MARINO A Primary Care Physician - Nancy [...] AM EDT With: Nancy Grace MD Where: [facility] [address] [address]- Tuesday 8:00 AM EDT With: Where: [facility] [address] [place] [address]- Tuesday 8:15 AM EDT With: Bryant TAO MD Where: [facility] [address] [place] [address]- Tuesday2025 8:00 AM EST With: Where: [address] [address]- Medications What How Much When Why Instructions New ciprofloxacin (Cipro 500 mg Tab) 1 Tablets By Mouth Every 12 hours Dizziness Microhematuria Duration: 7 Days Pickup at [facility]/pharmacy #[id number] Unchanged acetaminophen-hydrocodone (acetaminophen-hydrocodone 325 mg-5 mg [...] BS twice daily- will bring equipment to [facility] f/ u to update brand [...] day (in the evening) Pharmacy Information [facility]/pharmacy #[id number]: [address] [place], [place] [phone] Allergies CeleBREX (Anxiety, Unknown) Problems Ongoing - [...] Incomplete bladder emptying Ki (more content not included)...[facility] Medicine Office/Clinic Noteon 02-03-8522Dkgbro Medicine Office/Clinic NoteFami Medicine Office/Clinic Note Chief [...] # 14 tab(s), Refills(s) 0, Pharmacy: [facility]/pharmacy #[id number], 174, cm, 11/14/24 10:26:00 EDT, Height/Length Dosing, 112.9, kg, 11/14/24 10:26:00 EDT, Weight Dosing Urnls Dip Stick Auto w/o Microscopy POC [address] Microhematuria (R31.29: Other microscopic hematuria) - POC U/A shows leukocytes and blood - Urine culture pending - Start Ciprofloxacin - Provider to call with urine culture results Ordered: ciprofloxacin, 500 mg = 1 tab(s), Oral, q12hr, X 7 day(s), # 14 tab(s), Refills(s) 0, Pharmacy: [facility]/pharmacy #[id number], 174, cm, 11/14/24 10:26:00 EDT, Height/Length Dosing, 112.9, kg, 11/14/24 10:26:00 EDT, Weight Dosing Urine Culture Orders: magnesium oxide, 400 mg = 1 tab(s), Oral, TID, 90 EA, 0 Refill(s), TAKE 1 TABLET BY MOUTH THREE TIMES A DAY, # 90 tab(s), Refills(s) 0, Pharmacy: [facility]/pharmacy #[id number], 174, cm, 11/14/24 10:26:00 EDT, Height/Length [...] mg= 2 tab(s (more content not included)... [facility] CenterComment on above:Result Comment: Electronically Signed By: MARINO KEARNS CNP\.br\Date and Time Signed: 11/14/24 11:08 EDT Ambulatory Visit Summaryon 45-28-2719Ozgxvfqvvr Visit SummaryAmbulatory Visit Summary ALICJA REYES Bharathi [...] EDT With: Ruiz REYNOLDS, Nancy Thompson Where: [address] [address]- Tuesday 8:00 AM EDT With: Where: [facility] [address] [place] [address]- Tuesday 8:15 AM EDT With: Bryant TAO MD Where: [facility] [address] [address]- Tuesday2025 8:00 AM EST With: Where: [address] [phone]- You Need to Complete the Following Magnesium [...] BS twice daily- will bring equipment to [facility] f/ u to update brand [...] disorder, recurrent, m (more content not included)...Normal [facility] HospitalBMPon 61-40-4997IV6 [Moles/Vol]24 mmol/PJmysns74-49 [facility] HospitalComment on above:Performed By: #### [id number] #### [facility] [address] [place], [place] [address]Gobxt gap [Moles/Vol]14 mmol/LNormal6-16New[facility] HospitalComment on above:Performed By: #### [id number] #### [facility] [address] [place], [place] [address]Snszrgk [Mass/Vol]8.5 mg/dLLow8.9-11.1FWVUMedicine Harrison Community HospitalComment on above:Performed By: #### [id number] #### [facility] [address] [place], [place] [address]Fdmdodtp [Moles/Vol]103 mmol/OQtmdqy608-329HzjpgiNewark HospitalComment on above:Performed By: #### [id number] #### [facility] [address] [place], [place] [address]Wrukvhdhhp [Mass/Vol]1.4 mg/dLHigh0.5-1.3FWVUMedicine Harrison Community HospitalComment on above:Performed By: #### [id number] #### [facility] [address] [place], [place] [address]Itpkbuj [Mass/Vol]248 mg/hHDemw76-538HggfriNewark HospitalComment on above:Performed By: #### [id number] #### [facility] [address] [place], [place] [address]Elsxcxfir [Moles/Vol]4.5 mmol/LNormal3.5-5.3FWVUMedicine Harrison Community HospitalComment on above:Performed By: #### [id number] #### [facility] [address] [place], [place] [address]Znnvqb [Moles/Vol]136 mmol/DUiwygt214-265IwxshtNewark HospitalComment on above:Performed By: #### [id number] #### [facility] [address] [place], [place] [address]Dgui nitrogen [Mass/Vol]16 mg/dLNormal5-21New[facility] HospitalComment on above:Performed By: #### [id number] #### [facility] [address] [place], [place] [address]Bdku nitrogen/Creatinine [Mass ratio]11 No FzcdmVkhbfq58-34 [facility] HospitalComment on above:Performed By: #### [id number] #### [facility] [address] [place], [place] [address]GJKRAYSAMHyplrbz By: SYSTEM SYSTEM on 65-54-9036Uvwcqorbi [Mass/Vol]0.9 mg/dLInvalid Interpretation Code1.3 - 2.4 mg/dLRemisol ChemComment on above:Result Comment: Critical Result Verified by Repeat Analysis Critical Result S_M.9 Called to and read back by: DR. ANDRE at: 10/08/2024 19:50:28 by:JSAnion gap [Moles/Vol]14 mmol/LNormal6 - 16 mEq/LRemisol Chem Calcium [Mass/Vol]8.5 mg/dLLow8.9 - 11.1 mg/dLRemisol ChemChloride [Moles/Vol] 103 mmol/ALaejud414 - 111 mmol/LRemisol ChemCreatinine [Mass/Vol]1.4 mg/dLHigh 0.5 - 1.3 mg/dLRemisol MpdsqKPK97 mL/min/1.73 m2Low>=59mL/min/1.73 z4Apcxwan ChemGlucose [Mass/Vol]248 mg/gEYiib49 - 199 mg/dLRemisol ChemPotassium [Moles/Vol]4.5 mmol/LNormal3.5 - 5.3 mmol/LRemisol ChemSodium [Moles/Vol]136 mmol/JPxuvha246 - 145 mmol/LRemisol ChemUrea nitrogen [Mass/Vol]16 mg/dLNormal5 - 21 mg/dLRemisol ChemUrea nitrogen/Creatinine [Mass ratio]11 mg/czSvqyuq78 - 20 Remisol ChemCHEMISTRYOrdered By: Ruthann Mohan on 82-46-1514XX1 [Moles/Vol] 24 mmol/HKsjmwe87 - 31 mmol/LFTMC Chem SCHEMISTRYOrdered By: Irma Irwin on 04-60-4129LbX6p (Bld) [Mass fraction]8.7 %High<=5.9%[facility] ChemAutoSSFamily Medicine Office/Clinic Noteon 03-55-9736Slsylw Medicine Office/Clinic NoteHarley Private Hospital Medicine Office/Clinic Note Chief Complaint 3m follow up Concern about recurrent hypomagnesemia episodes and recent magnesium levels HPI Staff 3m follow up Started on semaglutide @ [facility] for diabetes. Pt states he did not get. Too expensive. Magnesium levels drawn @ [facility]. Results were critical low. Pt advised to [...] nicotine dependence) Please con (more content not included)...[facility] Comment on above:Result Comment: Electronically Signed By: Ruiz REYNOLDS, Nancy Thompson\.br\Date and Time Signed: 10/08/24 08:19 MWWQiwQ8xdx 76-75-2449BfZ3q (Bld) [Mass fraction]8.7 %High<=5.9New[facility] HospitalComment on above: Performed By: #### [id number] #### [facility] [address] [place], [place] [address]Nhwleagphgk 23-96-7283Dymtnleaf [Mass/Vol]0.9 mg/dLAbnormal 1.3-2.4FWVUMedicine Harrison Community HospitalComment on above:Result Comment: Critical Result Verified by Repeat Analysis Critical Result S_M.9 Called to and read back by: DR. ANDRE at: 10/08/2024 19:50:28 by:ZARAPerformed By: #### [id number] #### [facility] [address] [place], [place] [address]uJANyc 41-80-5376bBFE33 mL/min/1.73 m2Low>=59Newark HospitalComment on above:Performed By: #### [id number] #### [facility] [address] [place], [place] [address]Qapgdwgilh Visit Summaryon 84-20-7302Bexjvthihn Visit Summary Ambulatory Visit Summary ERIC ALICJA [...] AM EDT With: Nancy Grace MD Where: [address] [address]- Tuesday 8:15 AM EDT With: Nancy Grace MD Where: [address] [id number]- Tuesday2025 8:00 AM EST With: Where: [address] [address]- Medications What How Much When Why Instructions [...] you for choosing us for your care. [facility] Medical CenterCHEMISTRYOrdered By: SYSTEM SYSTEM on 54-98-5260Ehmv PSA [Mass/Vol]0.4 ng/mLInvalid Interpretation Code Remisol ChemComment on above:Interpretive Data: The concentration of free PSA and total PSA determined with assays from different manufacturers can vary due to differences in assay methods and specificity. Values obtained with different supervisor sewer system's assays cannot be used interchangeably. The methodology used to obtain this result was chemiluminescence using [place]'s Access Hybritech PSA reagent and Access Hybritech [...] Lazara's Access Hybritech PSA reagent.Ambulatory Visit Summaryon 94-77-3142Xluspebeda Visit SummaryAmbulatory Visit Summary ALICJA REYES :1955 [...] AM EDT With: Nancy Grace MD Where: [facility] [address] [address]- Tuesday 8:15 AM EDT With: Ruiz REYNOLDS, Nancy Thompson Where: [address] [phone]- Tuesday2025 8:00 AM EST With: Where: [address] [address]- Medications What How Much When Why Instructions [...] 1 Tablets By Mouth Every day [facility]changed [facility] Prescription) 'Number 1' Glucometer and test strips testing BS twice daily- will bring equipment to [facility] f/ u to update brand [...] you for choosing us for your care. NormalUnc Health Blue Ridgeer Upmc Western MarylandCHEMISTRYOrdered By: SYSTEM SYSTEM on 55-46-3005Mlppysaqf [Mass/Vol]0.6 mg/dLInvalid Interpretation Code1.3 - 2.4 mg/dLRemisol ChemComment on above:Result Comment: Critical Result Verified by Repeat Analysis Critical Result S_M.6 Called to and read back by: DR. NANCY GRACE at: 08/22/2024 18:46:44 by:Carlos Enriqueesiumon 17-37-2354Nyrsxjequ [Mass/Vol]0.6 mg/dL Abnormal1.3-2.4Fisher Upmc Western MarylandComment on above:Result Comment: Critical Result Verified by Repeat Analysis Critical Result S_M.6 Called to and read back by: DR. NANCY GRACE at: 08/22/2024 18:46:44 by:Rangelformed By: #### [id number] #### [facility] [address] [place], [place] [address]Osyrcbenrx Visit Summaryon 83-20-5751Lidpovuvze Visit Summary Ambulatory Visit Summary ERICALICJA Bharathi [...] PORTER PA-C Where: [facility] [address] [place] [address]- Tuesday 8:00 AM EDT With: Nancy Grace MD Where: [address] [phone]- Tuesday 8:15 AM EDT With: Nancy Grace MD Where: [address] [address]- Tuesday2025 8:00 AM EST With: Where: [address] [place] [address]- You Need to Schedule the Following Appointments Follow Up with TOSHIA Reddy APRN, Estefania Santiaog, NATALIO, ALHAJI When: Where: Medications What How [...] BS twice daily- will bring equipment to [facility] f/ u to update brand [...] 37.0-37.9, adult BPH w (more content not included)...NormalNewark HospitalUrology Office/Clinic Noteon 18-92-5134Gawdrri Office/Clinic NoteUrology Office/Clinic Note Chief Complaint 6 [...] 7.4% (PSAD 0.31) MRI of prostate 07/21/23 [facility] [place] - A focal area involving the anterior [...] (R33.9: Retention of urine, unspecified) 06/04/23 - [facility] ER due to chills and dizziness [...] lower urinary tractsymptoms) MRI of prostate 07/21/23 [facility] [place] - Prostate volume 26 cc. Grossly distended urinary bladder with partially visualized bilateral hydroureter. TALAMANTES is suspected and fol (more content not included)...NormalNewark HospitalComment on above:Result Comment: Electronically Signed By: TOSHIA Reddy APRN, [place] X\.br\Date and Time Signed: 08/21/24 10:00 EDT\.br\Electronically Co-Signed By: Analilia Espino\.br\Date and Time Co-Signed: 08/21/24 09:41 EDTCHEMISTRYOrdered By: SYSTEM SYSTEM on 18-54-6940Kkfb PSA [Mass/Vol]0.6 ng/mLInvalid Interpretation CodeRemisol ChemComment on above:Interpretive Data: The concentration of free PSA and total PSA determined with assays from different manufacturers can vary due to differences in assay methods and specificity. Values obtained with different supervisor sewer system's assays cannot be used interchangeably. The methodology used to obtain this result was chemiluminescence using [employer]'s Access Hybritech PSA reagent and Access Hybritech [...] used for this result was chemiluminescence using Values of n's Access Hybritech PSA reagent.BASIC METABOLIC PANLon 10-23-5981Bjncv gap [Moles/Vol]12 mmol/LNormal5-15ProChristus Spohn Hospital BeevilleComment on above:Performed By: #### BMP #### [facility] ([id number]) [address], [address] [place], [place] [address]Nltktkt [Mass/Vol]9.3 mg/dLNormal8.5-10.5PCleveland Clinic Mentor HospitalComment on above:Performed By: #### BMP #### [facility] ([id number]) [address], [address] [place], [place] [address]Aybsfpxm [Moles/Vol]100 mmol/QSwoivr87-019GjwBfuvarChristus Spohn Hospital BeevilleComment on above:Performed By: #### BMP #### [facility] ([id number]) [address], [address] [place], [place] [address]AU3 [Moles/Vol]24 mmol/DFxbweu57-35QwgPjjpkeCleveland Clinic Mentor Hospital Comment on above:Performed By: #### BMP #### [facility] ([id number]) [address], [address] [place], [place] [address]Myilogbger [Mass/Vol]1.35 mg/dLHigh0.60-1.30ProChristus Spohn Hospital BeevilleComment on above:Result Comment: METHOD TRACEABLE TO IDMS STANDARD Performed By: #### BMP #### [facility] ([id number]) [address], [address] [place] [address]QNZ/1.73 sq M.predicted among non-blacks MDRD (S/P/Bld) [Vol rate/Area]56 mL/min/{1.73_m2}Low>59ProChristus Spohn Hospital BeevilleComment on above: Result Comment: Reported eGFR is based on the CKD-EPI 2020 equation that does not use a race coefficient.Performed By: #### BMP #### [facility] ([id number]) [address], [address] [place], [place] [address]Babnnks [Mass/Vol]204 mg/iCNhvw71-28CxaNcylshChristus Spohn Hospital Beeville Comment on above:Performed By: #### BMP #### [facility] ([id number]) [address], [address] [place], [place] [address]Qtgcclfdo [Moles/Vol]4.3 mmol/LNormal3.5-5.0ProChristus Spohn Hospital BeevilleComment on above:Performed By: #### BMP #### [facility] ([id number]) [address], [address] [place], [place] [address]Cjkeuc [Moles/Vol]136 mmol/ADflhni065-508MbcVjblcv Fremont HospitalComment on above:Performed By: #### BMP #### [facility] ([id number]) [address], [address] [place], [place] [address]Fyag nitrogen [Mass/Vol]18 mg/dLNormal5-27ProChristus Spohn Hospital BeevilleComment on above:Performed By: #### BMP #### [facility] ([id number]) [address], [address] [place], [place] [address]Druxz metabolic 1998 panelon 34-34-4139Phinn gap [Moles/Vol]12 mmol/L5 - 15 mmol/LNOMS HealthcareCalcium [Mass/Vol]9.3 mg/dL8.5 - 10.5 mg/dL NOMS HealthcareChloride [Moles/Vol]100 mmol/L98 - 109 mmol/LNOMS HealthcareCO2 [Moles/Vol]24 mmol/L22 - 32 mmol/LNOMS HealthcareCreatine [Mass/Vol]1.35 mg/dL High0.60 - 1.30 mg/dLNOCT HealthcareComment on above:METHOD TRACEABLE TO IDMS STANDARDGFR/1.73 sq M.predicted among non-blacks MDRD (S/P/Bld) [Vol rate/Area] 56 mL/min/{1.73_m2}Low- PINFNOMS HealthcareComment on above: Reported eGFR is based on the CKD-EPI 2020 equation that does not use a race coefficient. PERFORMED AT [facility] [address],[place] [address] Glucose [Mass/Vol]204 mg/kFNokp87 - 99 mg/dLNOCT HealthcareInterpretation and review of laboratory resultsAbnormalNOMS HealthcarePotassium [Moles/Vol]4.3 mmol/L3.5 - 5.0 mmol/LNOMS HealthcareSodium [Moles/Vol]136 mmol/L134 - 146 mmol/LNOMS HealthcareUrea nitrogen [Mass/Vol]18 mg/dL5 - 27 mg/dLNOCT Healthcare NOMS HealthcareFami Medicine Office/Clinic Noteon 46-37-5956Bgvhjl Medicine Office/Clinic NoteFami Medicine Office/Clinic Note Chief [...] Yes Primary Pain Lo (more content not included)...[facility] Comment on above:Result Comment: Electronically Signed By: Nancy Grace MD\.br\Date and Time Signed: 08/08/24 10:11 EST\.br\Electronically Co-Signed By: Radha Tao\.br\Date and Time Co-Signed: 07/09/24 09:23 ESTAmbulatory Visit Summaryon 25-84-2173Wcsoaqqulv Visit SummaryAmbulatory Visit Summary ALICJA REYES :1955 [...] APRN, Estefania Santiago Where: [facility] [address] [address]- Tuesday 8:15 AM EDT With: Nancy Grace MD Where: [address] [phone]- Tuesday 8:15 AM EDT With: Nancy Grace MD Where: [address] [id number]- Tuesday2025 8:00 AM EST With: Where: [address] [phone]- Medications What How Much When Why Instructions [...] BS twice daily- will bring equipment to [facility] f/ u to update brand [...] or discomfort t (more content not included)...Normal [facility] HospitalAmbulatory Visit SummaryAmbulatory Visit Summary ERICALICJA Bharathi [...] APRN, [place] X Where: [facility] [address] [address]- Tuesday 8:15 AM EDT With: Nancy Grace MD Where: [address] [phone]- Tuesday 8:15 AM EDT With: Nancy Grace MD Where: [address] [address]- Tuesday2025 8:00 AM EST With: Where: [address] [address]- Medications What How Much When Why Instructions New semaglutide (Ozempic 2 mg/ 3 mL (0.25 mg or 0.5 mg dose) subcutaneous solution) 0.25 Milligram Subcutaneous Every week Type 2 diabetes mellitus with hypercholesterolemia BMI 37.0-37.9, adult Obesity (BMI 30-39.9) Former smoker Hypomagnesemia Pickup at [facility]/pharmacy #[id number] Unchanged amlodipine (amLODIPine 5 mg Tab) See [...] day (in the evening) Pharmacy Information [facility]/pharmacy #[id number]: [address], [place] [phone] Allergies CeleBREX (Anxiety, Unknown) Problems Ongoing - [...] Patient Survey You ma (more content not included)...[facility] Medical CenterCHEMISTRY Ordered By: SYSTEM SYSTEM on 92-24-5120Rdyvkelbw [Mass/Vol]0.5 mg/dLInvalid Interpretation Code1.3 - 2.4 mg/dLRemisol ChemComment on above:Result Comment: Critical Result Verified by Previous Result Critical Result S_M.5 Called to and read back by: NANCY GRACE at: 07/16/2024 18:21:49 by:[facility] Medicine Office/Clinic Noteon 75-16-3188Yyeflu Medicine Office/Clinic NoteHarley Private Hospital Medicine Office/Clinic Note Chief Complaint Discuss A1C results The patient presents for a medication review and management of Type 2 diabetes mellitus. [facility] Staff Pt presents today to discuss recent [...] The patient has been managing this with plin-hph-uvakwsx magnesium supplements. He denies any symptoms of [...] qWeek, # 3 mL, Refills(s) 0, Pharmacy: [facility]/pharmacy #[id number], 175.3, cm, 07/16/24 8:18:00 EST, Height/Length Dosing, 114, kg, 07/16/24 8:18:00 EST, Weight Dosing Body Mass Index (BMI) documented 3008F Current tobacco non-user 1036F Depression Screening Negative 3352F Influenza immunization status assessed 1030F Lab Specimen Collect 23740 Magnesium Level Medication list documented in medical [...] qWeek, # 3 mL, Refills(s) 0, Pharmacy: [facility]/pharmacy #[id number], 175.3, cm, 07/16/24 8:18:00 EST, Height/Length Dosing, 114, kg, 07/16/24 8:18:00 EST, Weight Dosing Magnesium Level 3. Obesity (BMI 30-39.9) (E66.9: Obesity, unspecified) Encouraged dietary modifications and physical activity. Consideration for medications that could provide weight loss benefits inclusive to their primary use, such as Ozempic. Ordered: semaglutide, 0.25 mg, SubCutaneous, qWeek, # 3 mL, Refills(s) 0, Pharmacy: [facility]/pharmacy #[id number], 175.3, cm, 07/16/24 8:18:00 EST, Height/Length Dosing, 114, kg, 07/16/24 8:18:00 EST, Weight Dosing Magnesium Level 4. Former smoker (Z87.891: Personal history of nicotine dependence) Reinforced smoking cessation and its benefits on long-term health outcomes. Ordered: semaglutide, 0.25 mg, SubCutaneous, qWeek, # 3 mL, Refills(s) 0, Pharmacy: [facility]/pharmacy #[id number], 175.3, cm, 07/16/24 8:18:00 EST, Height/Length Dosing, 114, kg, 07/16/24 8:18:00 EST, Weight Dosing Magnesium Level 5. Hypomagnesemia (E83.42: Hypomagnesemia) Blood sample required to reassess serum magnesium levels. Depending on results, magnesium supplementation may be adjusted. Ordered: sema (more content not included)...NormalNewark HospitalComment on above:Result Comment: Electronically Signed By: Ruiz REYNOLDS, Nancy Cordoba.br\Date and Time Signed: 07/16/24 08:57 ESTMagnesiumon 51-22-4401Tsamtpiwb [Mass/Vol]0.5 mg/dLAbnormal1.3-2.4[facility]c Western MarylandComment on above:Result Comment: Critical Result Verified by Previous Result Critical Result S_M.5 Called to and read back by: NANCY GRACE at: 07/16/2024 18:21:49 by:KENAPerformed By: #### [id number] #### [facility] [address] [place], [place] [address]Gkd-Pkacg Planningon 74-00-7007Ekw-Visit PlanningPre-Visit Planning From: Valarie Solis To: Ruiz REYNOLDS, Nancy Thompson; Sent: 07/06/2024 11:24:03 EST Subject: Pre-Visit Planning Due Date/Time: 07/06/2024 11:24:00 EST Caller Name: ALICJA REYES; Caller Number: Sana , Nicloe La Dr. Grace. During a pre-visit planning chart review, I noted the following documentation in the medical record: Current Problem List: Alcohol abuse uncomplicated, Hypokalemia, Hypomagnesemia, Major depressive disorder recurrent moderate, HTN, and Tachycardia. Current Medication List: amlodipine, lisinopril, magnesium oxide, metoprolol, and potassium chloride. 07/25/2023 MWV: AUDIT Score =5. 12/29/2023 [facility] Nephrology Consult Note: Alcoholism: Discussed with [...] feel free to contact me at extension [phone]. Thank you! Valarie Solis LPN Clinical Dog License Officer Supervisor [address] [address] Extension: [phone] [email or web address] From: Nancy Grace MD To: Valarie Solis; [...] I discussed this with him at last visit.[facility] CenterAmbulatory Visit Summaryon 50-28-3023Lbqtnjthgh Visit SummaryAmbulatory Visit Summary ALICJA REYES :1955 [...] Aurora X Where: [facility] [address] [place] [address]- Tuesday 8:15 AM EDT With: Nancy Grace MD Where: [address] [address]- Tuesday 8:15 AM EDT With: Nancy Grace MD Where: [place] [address] [place] [address]- Medications What How Much When Why Instructions [...] BS twice daily- will bring equipment to [facility] f/ u to update brand [...] you for choosing us for your care. NormalNewark HospitalCBC w/ Auto Diffon 07-09-2024 Basophils/100 WBC (Bld)0.7 %Normal0.0-2.0Newark HospitalComment on above:Performed By: #### [id number] #### [facility] [address] [place] [address]684Scvznkqcu/Leukocytes Auto (Bld) [Pure # fraction]0.0 E9/LNormal 0.0-0.2FWVUMedicine Harrison Community HospitalComment on above:Performed By: #### [id number] #### [facility] [address] [place] [address]Qqqtoxomefm (Bld) [#/Vol]0.2 E9/LNormal0.0-0.5FWVUMedicine Harrison Community HospitalComment on above:Performed By: #### [id number] #### [facility] [address] [place] [address]Yrvannljrlm/100 WBC (Bld)3.3 %Normal0.0-8.0Newark HospitalComment on above:Performed By: #### [id number] #### [facility] [address] [place] [address] 58431Dgihbeulwit distribution width (RBC) [Ratio]12.9 %Normal 10.9-14.2FWVUMedicine Harrison Community HospitalComment on above:Performed By: #### [id number] #### [facility] [address] [place] [address] 72736Rrnsyvqnhj (Bld) [Volume fraction]39.3 %Vjkzqk19.7-49.0Newark HospitalComment on above:Performed By: #### [id number] #### [facility] [address] [place] [address] 577[address]Qjbelowydy (Bld) [Mass/Vol]13.3 g/dLLow13.5-17.5FWVUMedicine Harrison Community HospitalComment on above:Performed By: #### [id number] #### [facility] [address] [place] [address] 898[address]Aaffjjfyhjf (Bld) [#/Vol]1.4 E9/LNormal1.0-4.0Newark HospitalComment on above:Performed By: #### [id number] #### [facility] [address] [place], [place] [address]Xgxfoxgypgv/100 WBC (Bld)21.3 %Shohew45.0-50.0Newark HospitalComment on above:Performed By: #### [id number] #### [facility] [address] [place] [address] 76[address]ZLT (RBC) [Entitic mass]33.6 voMpmurb82.0-34.0Newark HospitalComment on above:Performed By: #### [id number] #### [facility] [address] [place] [address] 47702UAJB (RBC) [Mass/Vol]33.9 g/kYTzzcje58.4-36.0Newark HospitalComment on above:Performed By: #### [id number] #### [facility] [address] [place] [address] 35876QLS (RBC) [Entitic vol]99.1 rKKkaqtc32.0-100.0Newark HospitalComment on above:Performed By: #### [id number] #### [facility] [address] [place] [address]Seudswkrz (Bld) [#/Vol]0.7 E9/LNormal0.2-1.0Newark HospitalComment on above:Performed By: #### [id number] #### [facility] [address] [place] [address]Zqqtmoqynoe (Bld) [#/Vol]4.1 E9/LNormal2.0-7.5FWVUMedicine Harrison Community HospitalComment on above:Performed By: #### [id number] #### [facility] [address] [place], [place] [address]Uhlldmdgzqk/100 WBC (Bld)63.7 %Gjrumq27.0-75.0Newark HospitalComment on above:Performed By: #### [id number] #### [facility] [address] [place], [place] [address]Kqsiqxfe mean volume (Bld) [Entitic vol]8.0 fLNormal6.4-10.8 Newark HospitalComment on above:Performed By: #### [id number] #### [facility] [address] [place] [address] 96469Xtmqtjzhl (Bld) [#/Vol]249.0 E9/PZowkdk745.0-500.0Newark HospitalComment on above:Performed By: #### [id number] #### [facility] [address] [place] [address] 640[address]PBD (Bld) [#/Vol]4.0 E12/LLow4.3-5.9[facility] Comment on above:Performed By: #### [id number] #### [facility] [address] [place] [address] 06[address]VXF corrected for nucl RBC Auto (Bld) [#/Vol]6.4 E9/LNormal 4.0-11.0Newark HospitalComment on above:Performed By: #### [id number] #### [facility] [address] [place] [address]PWUFQGVRKByhyxrp By: SYSTEM SYSTEM on 29-64-8311Jrnujas [Mass/Vol]4.3 g/dLNormal3.3 - 5.0 gm/dLRemisol ChemAlbumin/Globulin [Mass ratio] 1.7 {ratio}Normal1.1 - 2.2Remisol ChemALP [Catalytic activity/Vol]75 [iU]/d Fpxwdy69 - 98 Int._Unit/LRemisol ChemALT No additional P-5'-P [Catalytic activity/Vol]16 [iU]/dNormal6 - 46 Int._Unit/LRemisol ChemAnion gap [Moles/Vol] 14 mmol/LNormal6 - 16 mEq/LRemisol ChemAST [Catalytic activity/Vol]17 [iU]/d Normal5 - 43 Int._Unit/LRemisol ChemBilirubin [Mass/Vol]0.9 mg/dLNormal0.0 - 1.1 mg/dLRemisol ChemCalcium [Mass/Vol]8.0 mg/dLLow8.9 - 11.1 mg/dLRemisol Chem Chloride [Moles/Vol]102 mmol/UUwzfjy076 - 111 mmol/LRemisol ChemCholesterol [Mass/Vol]112 mg/oOBqm889 - 200 mg/dLRemisol ChemCholesterol in HDL [Mass/Vol]41 mg/dLInvalid Interpretation CodeRemisol ChemComment on above:Result Comment: '>= 60 LOW RISK' '<= 40 HIGH RISK'Cholesterol in LDL [Mass/Vol]59 mg/dLNormal<=129mg/dLRemisol ChemCholesterol in VLDL [Mass/Vol]20 mg/dLNormal7 - 40 mg/dLRemisol ChemCO2 [Moles/Vol]27 mmol/GOscqcn64 - 31 mmol/LRemisol ChemCreatinine [Mass/Vol]1.3 mg/dLNormal0.5 - 1.3 mg/dLRemisol JohvoTYJ76 mL/min/1.73 h7Lqpvdx>=59mL/min/1.73 a0Bzcmnoh ChemGlobulin (S) [Mass/Vol]2.6 g/dLNormal1.4 - 4.0 gm/dLRemisol Chem Glucose [Mass/Vol]291 mg/iDQqcc56 - 199 mg/dLRemisol ChemPotassium [Moles/Vol] 3.7 mmol/LNormal3.5 - 5.3 mmol/LRemisol ChemProtein [Mass/Vol]6.9 g/dLNormal6.0 - 7.8 gm/dLRemisol ChemSodium [Moles/Vol]139 mmol/VBvvofc480 - 145 mmol/LRemisol ChemTriglyceride [Mass/Vol]100 mg/dLNormal<=149mg/dLRemisol ChemUrea nitrogen [Mass/Vol]12 mg/dLNormal5 - 21 mg/dLRemisol ChemUrea nitrogen/Creatinine [Mass ratio]9 mg/mgLow10 - 20Remisol ChemAlbumin DL <= 20 mg/L (U) [Mass/Vol]10.5 mg/dLHigh0.0 - 1.9 mg/dLRemisol ChemCHEMISTRYOrdered By: Isidro Leonard on 16-00-0855LhB2b (Bld) [Mass fraction]8.0 %High<=5.9%[facility] ChemAutoSSCMPon 62-59-4689Tyzonzx [Mass/Vol]4.3 g/dLNormal3.3-5.0[facility] Comment on above:Performed By: #### [id number] #### [facility] [address] [place], [place] [address]Vfqovcf/Globulin (S) [Mass conc ratio]1.3Bnkibn4.1-2.2FWVUMedicine Harrison Community HospitalComment on above:Performed By: #### [id number] #### [facility] [address] [place], [place] [address]TNJ [Catalytic activity/Vol]75 Int._Unit/DJyyvlw84-41UlmjtmNewark HospitalComment on above:Performed By: #### [id number] #### [facility] [address] [place], [place] [address]LHL No additional P-5'-P [Catalytic activity/Vol]16 Int._Unit/L Normal6-46Newark HospitalComment on above:Performed By: #### [id number] #### [facility] [address] [place], [place] [address]Ffyay gap [Moles/Vol]14 mmol/LNormal6-16Newark HospitalComment on above:Performed By: #### [id number] #### [facility] [address] [place], [place] [address]QFH [Catalytic activity/Vol]17 Int._Unit/LNormal5-43Newark HospitalComment on above:Performed By: #### [id number] #### [facility] [address] [place], [place] [address]Dgdhhwdzr [Mass/Vol]0.9 mg/dLNormal0.0-1.1[facility] Hutchinson Medical CenterComment on above:Performed By: #### [id number] #### [facility] [address] [place], [place] [address]Akpjkkf [Mass/Vol]8.0 mg/dLLow8.9-11.1FWVUMedicine Harrison Community HospitalComment on above:Performed By: #### [id number] #### [facility] [address] [place], [place] [address]Uzftbwap [Moles/Vol]102 mmol/BHwnlgt021-765LnqjatNewark HospitalComment on above:Performed By: #### [id number] #### [facility] [address] [place], [place] [address]AQ3 [Moles/Vol]27 mmol/XXxjjup29-17HyjjkvNewark Hospital Comment on above:Performed By: #### [id number] #### [facility] [address] [place], [place] [address]Ljozezcbiq [Mass/Vol]1.3 mg/dLNormal0.5-1.3FWVUMedicine Harrison Community HospitalComment on above:Performed By: #### [id number] #### [facility] [address] [place], [place] [address]Cfkmdhby (S) [Mass/Vol]2.6 g/dLNormal1.4-4.0Newark HospitalComment on above:Performed By: #### [id number] #### [facility] [address] [place], [place] [address]Nqrjruj [Mass/Vol]291 mg/qXBcen85-407BwahsxNewark HospitalComment on above:Performed By: #### [id number] #### [facility] [address] [place], [place] [address]Yvzkfqlbi [Moles/Vol]3.7 mmol/LNormal3.5-5.3FWVUMedicine Harrison Community HospitalComment on above:Performed By: #### [id number] #### [facility] [address] [place], [place] [address]Shihyjt [Mass/Vol]6.9 g/dLNormal6.0-7.8Newark HospitalComment on above:Performed By: #### [id number] #### [facility] [address] [place], [place] [address]Teupmy [Moles/Vol]139 mmol/VZvbcws399-374AxeompNewark HospitalComment on above:Performed By: #### [id number] #### [facility] [address] [place], [place] [address]Ssty nitrogen [Mass/Vol]12 mg/dLNormal5-21Newark HospitalComment on above:Performed By: #### [id number] #### [facility] [address] [place], [place] [address]Pasn nitrogen/Creatinine [Mass ratio]9 No TwbhoFsy10-62CberviNewark HospitalComment on above:Performed By: #### [id number] #### [facility] [address] [place], [place] [address]Mlymvp Medicine Office/Clinic Noteon 77-00-8250Kqyhoo Medicine Office/Clinic NoteHarley Private Hospital Medicine Office/Clinic Note Chief Complaint Med Refills Worsening depressive symptoms following a recent bereavement. [facility] Staff Pt presents today for med refills [...] Concerns: [facility]. 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 He also mentions self-catherization due to a [...] Urine Microalbumin/Creatinine Ratio 5 (more content not included)...[facility] Medical CenterComment on above:Result Comment: Electronically Signed By: Ruiz REYNOLDS, Nancy Thompson\.br\Date and Time Signed: 07/09/24 08:07 ESTHEMATOLOGYOrdered By: SYSTEM SYSTEM on 07-09-2024 Basophils/100 WBC (Bld)0.7 %Normal0.0 - 2.0 %Remisol HemeBasophils/Leukocytes Auto (Bld) [Pure # fraction]0.0 E9/LNormal0.0 - 0.2 E9/LRemisol HemeEosinophils (Bld) [#/Vol]0.2 E9/LNormal0.0 - 0.5 E9/LRemisol HemeEosinophils/100 WBC (Bld) 3.3 %Normal0.0 - 8.0 %Remisol HemeErythrocyte distribution width (RBC) [Ratio] 12.9 %Jiqbpv00.9 - 14.2 %Remisol HemeHematocrit (Bld) [Volume fraction]39.3 % Lrapnj69.7 - 49.0 %Remisol HemeHemoglobin (Bld) [Mass/Vol]13.3 g/dLLow13.5 - 17.5 gm/dLRemisol HemeLymphocytes (Bld) [#/Vol]1.4 E9/LNormal1.0 - 4.0 E9/L Remisol HemeLymphocytes/100 WBC (Bld)21.3 %Ctxukj02.0 - 50.0 %Remisol HemeMCH (RBC) [Entitic mass]33.6 rqGemstr16.0 - 34.0 pgRemisol HemeMCHC (RBC) [Mass/Vol] 33.9 g/xNAkzlig20.4 - 36.0 gm/dLRemisol HemeMCV (RBC) [Entitic vol]99.1 fLNormal 80.0 - 100.0 fLRemisol HemeMonocytes (Bld) [#/Vol]0.7 E9/LNormal0.2 - 1.0 E9/L Remisol HemeMonocytes/100 WBC (Bld)11.0 %Normal4.0 - 14.0 %Remisol Heme Neutrophils (Bld) [#/Vol]4.1 E9/LNormal2.0 - 7.5 E9/LRemisol HemeNeutrophils/100 WBC (Bld)63.7 %Wjrlcg72.0 - 75.0 %Remisol HemePlatelet mean volume (Bld) [Entitic vol]8.0 fLNormal6.4 - 10.8 fLRemisol HemePlatelets (Bld) [#/Vol]249.0 E9/XSkcvko165.0 - 500.0 E9/LRemisol HemeRBC (Bld) [#/Vol]4.0 E12/LLow4.3 - 5.9 E12/LRemisol HemeWBC corrected for nucl RBC Auto (Bld) [#/Vol]6.4 E9/LNormal4.0 - 11.0 E9/LRemisol PadoTdaG3moo 39-98-5193ZbT0h (Bld) [Mass fraction]8.0 %High <=5.9Newark HospitalComment on above:Performed By: #### [id number] #### [facility] [address] [place] [address]Ddvpw Panelon 12-50-6579Dsnciansdxk [Mass/Vol]112 mg/dLLow 120-200Newark HospitalComment on above:Performed By: #### [id number] #### [facility] [address] [place], [place] [address]Unanepaxnst in HDL [Mass/Vol]41 mg/dLInvalid Interpretation CodeNewark HospitalComment on above:Result Comment: '>= 60 LOW RISK' '<= 40 HIGH RISK'Performed By: #### [id number] #### [facility] [address] [place], [place] [address]Ojiwvbdhtrl in LDL [Mass/Vol]59 mg/dLNormal<=129Newark HospitalComment on above:Performed By: #### [id number] #### [facility] [address] [place], [place] [address]Gzoivtyfzha in VLDL [Mass/Vol]20 mg/dLNormal7-40Newark HospitalComment on above:Performed By: #### [id number] #### [facility] [address] [place], [place] [address]Itwucnlcvqnc [Mass/Vol]100 mg/dLNormal<=149Newark HospitalComment on above:Performed By: #### [id number] #### [facility] [address] [place], [place] [address]Lqx-Yawie Planningon 29-55-0528Bto-Visit PlanningPre-Visit Planning From: Valarie Solis To: Nancy Grace MD; Sent: 07/06/2024 11:32:39 EST Subject: Pre-Visit Planning Due Date/Time: 07/06/2024 11:32:00 EST Caller Name: ALICJA REYES; Caller Number: , M La Dr. Grace. During a pre-visit planning chart [...] feel free to contact me at extension [phone]. Thank you! Valarie Solis LPN Clinical Dog License Officer Supervisor [place] [address] Extension: [phone] [email or web address] From: Nancy Grace MD To: Valarie Solis; Sent: 07/09/2024 09:09:48 EST Subject: RE: Pre-Visit Planning Caller Name: ALICJA REYES; Caller Number: H , M -Type 2 diabetes mellitus with peripheral neuropathy, Yes he has it and we discussed it today at his visit.[facility] Medical CenterPre-Visit PlanningPre-Visit Planning From: Valarie Solis To: Nancy Grace MD; Sent: 07/06/2024 11:03:26 EST Subject: Pre-Visit Planning Due Date/Time: 07/06/2024 11:03:00 EST Caller Name: ALICJA REYES; Caller Number: H , M La Dr. Grace. During a pre-visit planning chart [...] you! Valarie Solis LPN Clinical Documentation Improvement SpecialistElizabeth [place] [address] TEAMS or [email or web address] From: Ruiz REYNOLDS, Nancy Thompson To: Valarie Solis; Sent: 07/09/2024 07:49:46 EST Subject: RE: Pre-Visit Planning Caller Name: ERIC ALICJA Bharathi; Caller Number: , Added Morbid Obesity.NormalNewark HospitalU Microalbon 07-09-2024 Albumin DL <= 20 mg/L (U) [Mass/Vol]10.5 mg/dLHigh0.0-1.9Newark HospitalComment on above:Performed By: #### [id number] #### [facility] [address] [place] [address]eIQOeb 58-96-6203nSLK64 mL/min/1.73 w3Nvkjha>=59Newark HospitalComment on above:Performed By: #### [id number] #### [facility] [address] [place], [place] [address]Vnatqjia Letteron 93-44-4846Waokisai LetterProvider Letter July 02, 2024 AL[address] REYES [address] [place] [id number] : 1955 Dear Alicja , We have [...] Sincerely, [facility] [address] [place] [address] LciuitXyqpjtDayton VA Medical CenterEMG 2 Extremitieson 62-73-9860KBAJ HealthcareA generalized process such as a polyneuropathy which is axonal loss in type and moderate to severe in degree electrically Carpal tunnel syndrome bilaterally, moderate right and mild left, may be overestimated given polyneuropathy Cervical radiculopathy can not be excludedCarePartners Rehabilitation HospitalN 11- 12 Nerveson 04-25-9631DLFV HealthcareA generalized process such as a polyneuropathy which is axonal loss in type and moderate to severe in degree electrically Carpal tunnel syndrome bilaterally, moderate right and mild left, may be overestimated given polyneuropathy Cervical radiculopathy can not be excludedCarePartners Rehabilitation Hospital Ambulatory Visit Summaryon 99-26-7580Ldaejjhjcp Visit SummaryAmbulatory Visit Summary ALICJA REYES :1955 [...] Appointments Tuesday 8:00 AM EST With: Where: [facility] [address] [address]- Tuesday 8:15 AM EST With: EMMY REYNOLDS, Byrant Vogel Where: [facility] [address] [place] [address]- Medications What How Much When Instructions Unchanged [...] BS twice daily- will bring equipment to [facility] f/ u to update brand [...] you for choosing us for your care. [facility] Medicine Office/Clinic Noteon 83-39-0774Hvlpfn Medicine Office/Clinic NoteHarley Private Hospital Medicine Office/Clinic Note HPI Staff Alicja [...] bedtime), # 30 cap(s), Refills(s) 0, [id number] 175.3, cm, 05/18/24 7:58:00 EST, Height/Length Dosing, 112.1, kg, 05/18/24 7:58:00 EST, Weight Dosing EMG Right Lower Extremity (RLE) [facility] External Ambulatory Referral 2. Former smoker (Z87.891: [...] Daily, # 90 cap(s), Refills(s) 0, [facility],175.3, cm, 05/18/24 7:58:00 EST, Height/Length [...] # 90 cap(s), Refills(s) 0, Pharmacy: [facility]/pharmacy #6177,175.3, cm, 05/18/24 7:58:00 EST, Height/Length Dosing, 112.1, kg, 05/18/24 7:58:00 EST, Weight Dosing Paresthesia of skin (R20.2: Paresthesia of skin) Discussed CCM program with patient and he declined. Total time spent preparing the chart, conducting of the encounter with the patient and family and time spent documenting, reviewing, and ordering tests was 30 minutes. Follow-up No qualifying data available Patient Education Paresthesia, Hzkn-zm-Ozdr Problem List/Past Medical History Ongoing Alcohol abuse [...] 400 mg, Oral, (more content not included)...Normal Newark HospitalComment on above:Result Comment: Electronically Signed By: MARINO KEARNS CNP\.oliver\Date and Time Signed: 05/18/24 08:48 EST Magnesiumon 61-34-4691Dvnjfdzjh [Mass/Vol]0.5 mg/dLAbnormal1.3-2.4[facility]pmc Western MarylandComment on above:Result Comment: Critical Result S_M.5 Called to and read back by: NOBLE OLIVAS at: 02/28/2024 15:00:56 by:[email or web address] Critical Result Verified by Repeat AnalysisPerformed By: #### [id number] ####[facility] [address] [place], [place] [address]LFGPTNMXT Ordered By: SYSTEM SYSTEM on 40-33-6902Etdrdjt [Mass/Vol]4.1 g/dLNormal3.3 - 5.0 gm/dLRemisol ChemAnion gap [Moles/Vol]15 mmol/LNormal6 - 16 mEq/LRemisol Chem Calcium [Mass/Vol]8.4 mg/dLLow8.9 - 11.1 mg/dLRemisol ChemChloride [Moles/Vol] 101 mmol/CJspmuw147 - 111 mmol/LRemisol ChemCO2 [Moles/Vol]26 mmol/LEdtwmk55 - 31 mmol/LRemisol ChemCreatinine [Mass/Vol]1.3 mg/dLNormal0.5 - 1.3 mg/dLRemisol TaxpkYSY72 mL/min/1.73 u5Uwqkcu>=59mL/min/1.73 d0Jmoxuxp ChemGlucose [Mass/Vol] 274 mg/mLMhdd57 - 199 mg/dLRemisol ChemPhosphate [Mass/Vol]2.4 mg/dLNormal1.9 - 4.6 mg/dLRemisol ChemPotassium [Moles/Vol]4.1 mmol/LNormal3.5 - 5.3 mmol/L Remisol ChemSodium [Moles/Vol]138 mmol/SSkoanc222 - 145 mmol/LRemisol ChemUrea nitrogen [Mass/Vol]14 mg/dLNormal5 - 21 mg/dLRemisol ChemUrea nitrogen/Creatinine [Mass ratio]11 mg/brNuqpuw76 - 20Remisol ChemRenal Panelon 23-14-9401Umdtrpz [Mass/Vol]4.1 g/dLNormal3.3-5.0[facility] Comment on above:Performed By: #### [id number] #### [facility] [address] [place], [place] [address]Mmfti gap [Moles/Vol]15 mmol/LNormal6-16Newark HospitalComment on above:Performed By: #### [id number] #### [facility] [address] [place], [place] [address]Ijwiwaj [Mass/Vol]8.4 mg/dLLow8.9-11.1FWVUMedicine Harrison Community HospitalComment on above:Performed By: #### [id number] #### [facility] [address] [place], [place] [address]Nxdyqssi [Moles/Vol]101 mmol/FSzuipx244-027JfbzuwNewark HospitalComment on above:Performed By: #### [id number] #### [facility] [address] [place], [place] [address]XP0 [Moles/Vol]26 mmol/BWogdlc07-38VqqmyuNewark Hospital Comment on above:Performed By: #### [id number] #### [facility] [address] [place], [place] [address]Reaqocqlyr [Mass/Vol]1.3 mg/dLNormal0.5-1.3FWVUMedicine Harrison Community HospitalComment on above:Performed By: #### [id number] #### [facility] [address] [place], [place] [address]Sscpncp [Mass/Vol]274 mg/sIWwbd24-216DoxifgNewark HospitalComment on above:Performed By: #### [id number] #### [facility] [address] [place], [place] [address]Gvxxxxlge [Mass/Vol]2.4 mg/dLNormal1.9-4.6FWVUMedicine Harrison Community HospitalComment on above:Performed By: #### [id number] #### [facility] [address] [place], [place] [address]Xozxpxaxj [Moles/Vol]4.1 mmol/LNormal3.5-5.3FWVUMedicine Harrison Community HospitalComment on above:Performed By: #### [id number] #### [facility] [address] [place], [place] [address]Cpnmjq [Moles/Vol]138 mmol/UPspiyf392-087HihczhNewark HospitalComment on above:Performed By: #### [id number] #### [facility] [address] [place], [place] [address]Ebjj nitrogen [Mass/Vol]14 mg/dLNormal5-21[facility] HospitalComment on above:Performed By: #### [id number] #### [facility] [address] [place], [place] [address]Qcmh nitrogen/Creatinine [Mass ratio]11 No OjlakXayqjc24-72 [facility] HospitalComment on above:Performed By: #### [id number] #### [facility] [address], [place] [address]tIJErz 18-70-5632gORK43 mL/min/1.73 u2Aridin>=59Newark HospitalComment on above:Order Comment: Order added by Discern Expert. Performed By: #### [id number] #### [facility] [address] [place], [place] [address]JRYHGDMRUJintzrb By: SYSTEM SYSTEM on 51-77-8320Qvmiipcwf [Mass/Vol]0.5 mg/dLInvalid Interpretation Code1.3 - 2.4 mg/dLINTEGRIS GROVE [facility] Chem SComment on above:Result Comment: Critical Result Verified by Repeat Analysis called to Marcin Grace by BHAVNA at 01/30/2024 19:19:23 EDT Results Verified By Repeat AnalysisMagnesiumon 14-86-9942Ulcgfrgkd [Mass/Vol]0.5 mg/dLAbnormal1.3-2.4FWVUMedicine Harrison Community HospitalComment on above:Result Comment: Critical Result Verified by Repeat Analysis called to Marcin Grace by [id number] at 01/30/2024 19:19:23 EDT Results Verified By Repeat AnalysisPerformed By: #### [id number] #### [facility] [address] [place], [place] [address]Gokoulvdp [Mass/Vol]0.5 mg/dLAbnormal1.3-2.4Fisher [facility] Western MarylandComment on above:Result Comment: Critical Result Verified by Repeat AnalysisPerformed By: #### [id number] #### [facility] [address] [place] [address]SrgxvjnfjdOhioHealth [facility] [phone]rs Hospitals for [facility] - [facility] Case Information Case Priority: None Programs: -- Referral Source: [employer] Referral Reason: Care coordination Case Type: Transition [...] 1 Outcome: Left message-voicemail Contact Type: Complex animal care supervisorflight control manager Name: Alicja Castellon Notes: TCM#2- message left for return call. Created By: Alicja Castellon Date: January 03, 2024 Method: Phone call Type: Outbound Duration (min): 12 Outcome: Case discussion Contact Type: pharmacy intake coordinator Contact Name: Alicja Castellon Notes: TCM#1- see tcm note. Created By: Alicja Castellon Date: January 02, 2024 Method: Phone call Type: Outbound Duration (min): 1 Outcome: Left message-voicemail Contact Type: pharmacy intake coordinator Contact Name: Alicja Castellon Notes: TCM#1- left vm for return call. Created By: Alicja Castellon [facility] CenterAmbulatory Visit Summaryon 37-47-6147Ibywlthvpg Visit SummaryAmbulatory Visit Summary ALICJA REYES :1955 [...] Appointments Tuesday 8:00 AM EST With: Where: [facility] [address] [address]- Tuesday 8:15 AM EST With: EMMY REYNOLDS, Bryant Vogel Where: [facility] [address] [place] [address]- Medications What How Much When Instructions Unchanged [...] you for choosing us for your care. [facility] Center[facility]ascular Office/Clinic Noteon 65-65-9357Kgegz and Vascular Office/Clinic NoteHeart and Vascular Office/Clinic [...] Vitamin Tab, See Instructions (more content not included)...[facility] CenterComment on above:Result Comment: Electronically Signed By: Buster REYNOLDS, Javier Garvin\.oliver\Date and Time Signed: 01/13/24 09:18 EDTCHEMISTRYOrdered By: SYSTEM SYSTEM on 31-16-1635Epak PSA [Mass/Vol]0.3 ng/mLInvalid Interpretation CodeRemisol ChemComment on above: Interpretive Data: The concentration of free PSA and total PSA determined with assays from different manufacturers can vary due to differences in assay methods and specificity. Values obtained with different supervisor sewer system's assays cannot be used interchangeably. The methodology used to obtain this result was chemiluminescence using Values of n's Access Hybritech PSA reagent and Access Hybritech [...] for this result was chemiluminescence using Ephraim NaHere's Access Hybritech PSA reagent.Magnesium on 09-06-6180Qzhvxosfb [Mass/Vol]0.9 mg/dLAbnormal1.3-2.4Ftc [facility] MarylandComment on above:Result Comment: Critical Result Verified by Repeat Analysis Critical Result S_M.9 Called to and read back by: DR KATZ at: 01/11/2024 19:10:59 by:GALOPerformed By: #### [id number] #### [facility] [address] [place], [place] [address]Obtxfprkei Visit Summaryon 67-26-2481Uyckyahils Visit Summary Ambulatory Visit Summary ALICJA REYES [...] Appointments Tuesday 8:00 AM EDT With: Where: [address] [address]- Tuesday 9:00 AM EDT With: Buster REYNOLDS, Javier Garvin Where: [facility] [place] Tuesday 8:00 AM EST With: Where: [facility] [address] [address]- Tuesday 8:15 AM EST With: Bryant TAO MD Where: [facility] [address] [place] [address]- You Need to Schedule the Following Appointments Follow Up with EMMY REYNOLDS, Bryant Vogel, URL When: Comments: 6 mos Where: [address] [address]- Medications What How Much When Instructions Unchanged [...] BS twice daily- will bring equipment to [facility] f/ u to update brand [...] you for choosing us for your care. [facility] CenterUrology Office/Clinic Noteon 80-67-5858Iupqpmi Office/Clinic NoteUrology Office/Clinic Note Chief Complaint follow [...] (R33.9: Retention of urine, unspecified) 06/04/23 - [facility] ER due to chills and dizziness [...] lower urinary tractsymptoms) MRI of prostate 07/21/23 [facility] [place] - Prostate volume 26 cc. Grossly distended [...] 04/04/23 - 6.1 MRI of prostate 07/21/23 [facility] [place] - A focal area involving the anterior [...] to 1.2 L p (more content not included)...[facility] CenterComment on above:Result Comment: Electronically Signed By: EMMY REYNOLDS, Bryant Vogel\.br\Date and Time Signed: 01/10/24 09:02 EDT\.br\Electronically Co- Signed By: Alis Velásquez\.br\Date and Time Co-Signed: 01/10/24 08:59 EDT Ambulatory Visit Summaryon 74-93-5525Bvslmrrjau Visit SummaryAmbulatory Visit Summary ALICJA REYES :1955 [...] REYNOLDS, Bryant Vogel [facility] [address] [facility] [place] [address]- Tuesday 8:00 AM EDT With: Where: [facility] [address] [address]- Tuesday 9:00 AM EDT With: Buster REYNOLDS, Javier Garvin Where: [facility] [place] Tuesday 8:00 AM EST With: Where: [facility] [address] [address]- Medications What How Much When Why Instructions [...] 1 Tablets By Mouth Every day Unchanged [facility] ([facility] [...] you for choosing us for your care. [facility] Medicine Office/Clinic Noteon 15-34-5111W[facility] Medicine Office/Clinic NoteHarley Private Hospital Medicine Office/Clinic Note HPI Staff Alicja is a 68 year old male presenting for hospital follow up TCM: Hospital: [facility] Admission date: 12/29/23 Discharge date: 12/30/23 Symptoms the patient presented with: sent by pcp for hypomagnesia Current concerns: doesn't care for Dacia Bañuelos the [employer] she took care of him in the [...] Systolic BP 130-139 mm (more content not included)...[facility] CenterComment on above:Result Comment: Electronically Signed By: Nancy Grace MD\.br\Date and Time Signed: 01/05/24 08:26 [facility] 01-03-2024 [facility] Case Information Case Priority: None Programs: -- Referral Source: [employer] Referral Reason: Care coordination Case Type: Transition [...] BM this am. (more content not included) ...NormalNewark HospitalPTH Intacton 73-11-4234Rnwzaslefi.intact [Mass/Vol]23 pg/mLInvalid Interpretation Anmi66-55BnedraNewark Hospital Comment on above:Result Comment: Performed at: [facility] [address] [id number] PhD Malik FernandoPerformed By: #### [id number] #### [facility] [address] [place], [place] [address]X Urineon 04-92-1047Ykdlffqz identified Cx Nom (U)Microbiology PROCEDURE: Urine Culture [R1] SOURCE: U CleanCatch BODY SITE: COLLECTED DATE/TIME: 12/29/2023 15:42 EDT RECEIVED DATE/TIME: 12/29/2023 17:12 EDT START DATE/TIME: 12/29/2023 17:12 EDT FREE TEXT SOURCE: EDDA [facility], Dacia BAÑUELOS [facility], Dacia FINAL REPORTS Final Report [...] Locations R1: This test was performed at: [facility], [address] [place] [address], [address]- , , QkvraaXikrueLake County Memorial Hospital - WestComment on above:Performed By: #### [id number] #### [facility] [address] [place] [address]Xkvttba Message Officeon 62-72-9122Epodepp Message Office General Message Office --- --- --- --- --- --- --- --- --- From: Jhon, DirectInbox To: ALICJA REYES Sent: 12/31/23 02:30:27 AM EDT Subject: Discharge Summary Ready to View A summary regarding your recent visit is available in the Documents section of your health record.[facility] CenterLab Miscellaneous-LCon 14-75-0781Olr MiscellaneousCOMMENTInvalid Interpretation CodeNewark HospitalComment on above:Order Comment: Random sample, not 24hr collection UrineResult Comment: Test Ordered: [id number] Magnesium, U Magnesium, U 5.1 mg/dL CB Reference Range: Not Estab. Performed at: [facility] [address] [id number] PhD Malik FernandoPerformed By: #### [id number] #### [facility] [address] [place] [id number] By: Zach Alvarez on 05-03-2897Jofbdus [Mass/Vol]168 mg/cEGfmd06 - 99 mg/dLINTEGRIS GROVE [facility] POC SubsectionComment on above:Result Comment: Notified RN/MDPOC Device [id number] 1Invalid Interpretation Code [facility] POC SubsectionPOC User [id number] 1Invalid Interpretation CodeFT POC SubsectionPOC UsernameHZAC RUSSOEInvalid Interpretation CodeFT POC SubsectionGlucose [Mass/Vol]150 mg/lKJswd76 - 99 mg/dLINTEGRIS GROVE [facility]OSP[facility] POC SubsectionComment on above:Result Comment: Notified RN/MDPOC Device [id number] 1Invalid Interpretation CodeINTEGRIS GROVE HOSP[facility] POC SubsectionPOC User [id number] 1Invalid Interpretation CodeINTEGRIS GROVE [facility] POC SubsectionPOC UsernamZAC SummersEInvalid Interpretation CodeINTEGRIS GROVE HOSPITAL [facility] POC SubsectionCHEMISTRYOrdered By: SYSTEM SYSTEM on 12-30-2023U Dxhossgeoh34.7 mg/dLInvalid Interpretation CodeRemisol ChemUr Total Mewgdda59.4 mg/dLInvalid Interpretation CodeRemisol ChemAnion gap [Moles/Vol]15 mmol/LNormal6 - 16 mEq/LRemisol ChemCalcium [Mass/Vol]10.0 mg/dLNormal8.9 - 11.1 mg/dLRemisol ChemChloride [Moles/Vol]101 mmol/NIhvytp892 - 111 mmol/LRemisol ChemCO2 [Moles/Vol]26 mmol/SVqmime22 - 31 mmol/LRemisol ChemCreatinine [Mass/Vol]1.2 mg/dLNormal0.5 - 1.3 mg/dLRemisol ZjyxdCJS01 mL/min/1.73 l2Cuqiop >=59mL/min/1.73 w1Azujgnd ChemGlucose [Mass/Vol]166 mg/lPDwnvpb27 - 199 mg/dL Remisol ChemMagnesium [Mass/Vol]1.6 mg/dLNormal1.3 - 2.4 mg/dLRemisol Chem Potassium [Moles/Vol]4.9 mmol/LNormal3.5 - 5.3 mmol/LRemisol ChemSodium [Moles/Vol]137 mmol/EMkmvhl591 - 145 mmol/LRemisol ChemTSH Qn1.54 m[IU]/LNormal 0.34 - 5.60 mcIU/mLRemisol ChemUrea nitrogen [Mass/Vol]17 mg/dLNormal5 - 21 mg/dLRemisol ChemUrea nitrogen/Creatinine [Mass ratio]14 mg/nrWbhlsj15 - 20 Remisol ChemCapillary Glucose POCon 02-45-4697Nwnroze [Mass/Vol]168 mg/dLHigh 55-99[facility]er [facility] MarylandComment on above:Result Comment: Notified RN/MD Performed By: #### [id number] #### [facility] [address] [place], [place] [address]SSVXMQXSIEBzrkgcl By: SYSTEM SYSTEM on 10-64-0642Nirfbnlun/100 WBC (Bld)1.1 %Normal0.0 - 2.0 %Remisol HemeBasophils/Leukocytes Auto (Bld) [Pure # fraction]0.1 E9/LNormal0.0 - 0.2 E9/LRemisol HemeEosinophils (Bld) [#/Vol]0.2 E9/LNormal0.0 - 0.5 E9/LRemisol HemeEosinophils/100 WBC (Bld)3.3 %Normal0.0 - 8.0 %Remisol HemeErythrocyte distribution width (RBC) [Ratio]13.3 %Xtgvrh39.9 - 14.2 %Remisol HemeHematocrit (Bld) [Volume fraction]37.9 %Hnwzjd97.7 - 49.0 % Remisol HemeHemoglobin (Bld) [Mass/Vol]13.4 g/dLLow13.5 - 17.5 gm/dLRemisol Heme Lymphocytes (Bld) [#/Vol]1.5 E9/LNormal1.0 - 4.0 E9/LRemisol HemeLymphocytes/100 WBC (Bld)22.5 %Pqxlpv92.0 - 50.0 %Remisol HemeMCH (RBC) [Entitic mass]33.8 pg Sqddrf23.0 - 34.0 pgRemisol HemeMCHC (RBC) [Mass/Vol]35.2 g/cUFcrowr10.4 - 36.0 gm/dLRemisol HemeMCV (RBC) [Entitic vol]96.0 kUPjutfh69.0 - 100.0 fLRemisol Heme Monocytes (Bld) [#/Vol]0.7 E9/LNormal0.2 - 1.0 E9/LRemisol HemeMonocytes/100 WBC (Bld)10.5 %Normal4.0 - 14.0 %Remisol HemeNeutrophils (Bld) [#/Vol]4.1 E9/L Normal2.0 - 7.5 E9/LRemisol HemeNeutrophils/100 WBC (Bld)62.6 %Prxeyx87.0 - 75.0 %Remisol DefkAfyezvew192.0 E9/UIprujv567.0 - 500.0 E9/LRemisol HemePlatelet mean volume (Bld) [Entitic vol]7.2 fLNormal6.4 - 10.8 fLRemisol HemeRBC (Bld) [#/Vol]4.0 E12/LLow4.3 - 5.9 E12/LRemisol HemeWBC corrected for nucl RBC Auto (Bld) [#/Vol]6.6 E9/LNormal4.0 - 11.0 E9/LRemisol HemeInpatient Clinical Summary on 20-22-3615Epvjmhnun Clinical SummaryInpatient Clinical Summary [place] [id number] Clinical Summary Person Information: Name: ALICJA REYES Age: 68 Years : 1955 Sex: Male PCP: Nancy Grace MD Marital Status: Race: White Ethnicity: Non- or Language: Hong Konger Visit Id: Visit Reason: Abnormal diagnostic test; SENT BY DR GRACE MAGNESIUM IS LOW Speciality: Acuity: Enc Type: Inpatient Med Service: Medical Arrival: 12/29/2023 13:33:35 Discharge: Dispo Type: Admitted as IP to this Hosp Address: [address] [place] [phone] Provider Notes: Diagnosis: 1:Hypomagnesemia; 2:UTI (urinary tract [...] When: Ramos Euceda [address] [place] [address] Business (1) Comments: Call for followup appointment in [place] office With: Address: When: Nancy Grace [facility] [place] [address] Business (2) 01/05/2024 7:45 AM Type Location Start [facility] Hospital Follow Up w/TCM [facility] 01/05/2024 7:45 AM 01/05/2024 8:05 AM Confirmed URO Office Visit [facility] ZAIN Casiano 01/10/2024 8:15 AM 01/10/2024 8:30 AM Confirmed Cardiology Follow Up (FT) [facility] [place] 01/13/2024 9:00 AM 01/13/2024 9:15 AM Confirmed Medicare Wellness Subsequent [facility] 07/09/2024 8:00 AM 07/09/2024 9:00 AM Confirmed Patient Education Information: How to Take Your Blood Pressure, Ohik-mq-Dydt; Form - Blood Pressure Record Sheet; Urinary Tract Infection, Adult, Hryf-um-Qsvl; Hypomagnesemia cyanocobalamin, levofloxacin, lisinopril, magnesium oxide 400 mg [facility]In[facility] Clinical SummaryInpatient Clinical Summary [address] [address] Clinical Summary Person Information: Name: ALICJA REYES Age: 68 Years : 1955 Sex: Male PCP: Nancy Grace MD Marital Status: Race: White Ethnicity: Non- or Language: Hong Konger Visit Id: Visit Reason: Abnormal diagnostic test; SENT BY DR GRACE MAGNESIUM IS LOW Speciality: Acuity: Enc Type: Inpatient Med Service: Medical Arrival: 12/29/2023 13:33:35 Discharge: Dispo Type: Admitted as IP to this Hosp Address: [address] [place] [phone] Provider Notes: Diagnosis: 1:Hypomagnesemia; 2:UTI (urinary tract [...] Follow up: With: Address: When: [facility] [place] [address] [facility] () 01/05/2024 7:45 AM Type Location Start [facility] Hospital Follow Up w/TCM [facility] 01/05/2024 7:45 AM 01/05/2024 8:05 AM Confirmed URO Office Visit [facility] 01/10/2024 8:15 AM 01/10/2024 8:30 AM Confirmed [facility] [place] 01/13/2024 9:00 AM 01/13/2024 9:15 AM Confirmed Medicare Wellness Subsequent [facility] 07/09/2024 8:00 AM 07/09/2024 9:00 AM Confirmed Patient Education Information:[facility] CenterIn[facility] Patient Summaryon 78-58-1534Ilkxruruf Patient SummaryInpatient Patient Summary ALICJA REYES :1955 [...] EDT With: Ruiz REYNOLDS, Nancy Thompson Where: [address] [address]- Tuesday 8:15 AM EDT With: EMMY REYNOLDS, Bryant Vogel Where: [facility] [address] [place] [address]- Tuesday 9:00 AM EDT With: Buster REYNOLDS, Javier Garvin Where: [facility] [place] Tuesday 8:00 AM EST With: Where: [facility] [place] [address] [place] [address]- New Follow Up Appointments after Discharge Follow Up with Nancy Grace When: 01/05/2024 07:45 AM EDT Where: [address] [place] [address]- Business (2) Follow Up with Ramos Euceda When: Comments: Call for followup appointment in [place] office Where: [place] [address]- Business (1) Medications What How Much When Why Instructions Next Dose New acetaminophen (acetaminophen 325 mg Tab) 2 Tablets By Mouth Every 6 hours as needed for Pain start as new med New cyanocobalamin (cyanocobalamin 1000 mcg Tab) 1 Tablets By Mouth Every day Pickup at [facility]/pharmacy #[id number] 12/31/23 9am New levofloxacin (Levaquin 500 mg Tab) 1 Tablets By Mouth Every 24 hours Duration: 10 Days Pickup at [facility]/pharmacy #[id number] start as new med today New lisinopril (lisinopril 40 mg Tab) 1 Tablets By Mouth Every day Pickup at [facility]/pharmacy #[id number] 12/31/23 9am New multivitamin (Therapeutic Multiple Vitamin Tab) See instructions Oral Daily Printed Prescription 12/31/23 9am Changed magnesium oxide (magnesium oxide 400 mg Tab) 1 Tablets By Mouth 2 times a day Pickup at [facility]/pharmacy #[id number] 12/30/23 9pm Unchanged amlodipine (amLODIPine 5 [...] 500 mg Ta (more content not included)... [facility] CenterIn[facility] Patient SummaryInpatient Patient Summary [address] [address] Patient Discharge Instructions PERSON INFORMATION [...] up: With: Address: When: [place] [address] Business (1) Comments: Call for followup appointment in [place] office With: Address: When: Nancy Grace [facility] [place] [address] Business (2) 01/05/2024 7:45 AM In the event that this physician does not participate in your insurance network, please consult with your insurance company to find a nearby participating provider. Type Location Start Finish [facility] Hospital Follow Up w/TCM [facility] 01/05/2024 7:45 AM 01/05/2024 8:05 AM Confirmed URO Office Visit [facility] ZAIN Chino 01/10/2024 8:15 AM 01/10/2024 8:30 AM Confirmed Cardiology Follow Up (FT) [facility] [place] 01/13/2024 9:00 AM 01/13/2024 9:15 AM Confirmed Medicare Wellness Subsequent [facility] 07/09/2024 8:00 AM 07/09/2024 9:00 AM Confirmed Comment: ERIC Song ROBIN D, have received the attached patient education materials/instructions and have verbalized understanding: Patient Signature Date Clinican/Nurse Signature Date HERE ARE THE MEDICATION CHANGES THAT OCCURRED DURING YOUR HOSPITAL STAY New Medications [id number], [address] [facility] [place] [id number], [phone] cyanocobalamin (cyanocobalamin 1000 mcg Tab) 1 Tablets [...] to Continue Taking That Have Changed [facility]/pharmacy #[id number], [address] [place], [place] [id number], [phone] START: magnesium oxide (magnesium oxide 400 mg [...] Refills: 6. Last Dose: (more content not included)...[facility] CenterIn[facility] Patient SummaryInpatient Patient Summary [place] [address] Patient Discharge Instructions PERSON INFORMATION Name: ALICJA [...] Address: When: Nancy Grace [address] [place] [address] Business (2) 01/05/2024 7:45 AM In the event that this physician does not participate in your insurance network, please consult with your insurance company to find a nearby participating provider. Type Location Start [facility] Hospital Follow Up w/TCM [facility] Benson 01/05/2024 7:45 AM 01/05/2024 8:05 AM Confirmed URO Office Visit [facility] EU [place] 01/10/2024 8:15 AM 01/10/2024 8:30 AM Confirmed Cardiology Follow Up (FT) [facility] [place] 01/13/2024 9:00 AM 01/13/2024 9:15 AM Confirmed Medicare Wellness Subsequent [facility] Benson 07/09/2024 8:00 AM 07/09/2024 9:00 AM [...] BY MOUTH EVERY DAY. (more content not included)...NormalNewark HospitalLab Miscellaneous-LCon 67-51-8731Ouvn Unib309682Nyeziuw Interpretation [facility] HospitalComment on above:Order Comment: Random sample, not 24hr collection UrineResult Comment: Corrected test codePerformed By: #### [id number] #### [facility] [address] [place], [place] [address]Modilgjkn Laboratory TestingOrdered By: Dacia BAÑUELOS on 38-70-0513Mwgz [id number] 1Invalid Interpretation [facility] SendOutsSSComment on above:Result Comment: Corrected test codeTest Nameurine magInvalid Interpretation CodeINTEGRIS GROVE HOSPITAL [facility] SendOutsSSTSH With T4fr Reflexon 36-62-7359FZP Qn1.54 m[IU]/LNormal0.34-5.60Fisher [facility] Western MarylandComment on above:Performed By: #### [id number] #### [facility] [address] [place], [place] [address]VBHVREEWLKpetzsi By: Lab ROPUser on 04-48-7935Urhviua [Mass/Vol]170 mg/vDFrgn05 - 99 mg/dLINTEGRIS GROVE HOSPITAL [facility] POC SubsectionPOC Device [id number] 1Invalid Interpretation CodeINTEGRIS GROVE HOSPITAL – GR[facility] POC SubsectionPOC User [id number] 1Invalid Interpretation [facility] POC SubsectionPOC UsernameMILLER, ROKYAInvalid Interpretation CodeINTEGRIS GROVE HOSPITAL [facility] POC SubsectionCHEMISTRYOrdered By: SYSTEM SYSTEM on 74-27-5272Diztlwldo [Mass/Vol]1.7 mg/dLNormal1.3 - 2.4 mg/dLRemisol Chem Amphetamines [...] [Mass/Vol]9.8 mg/dLNormal8.9 - 11.1 mg/dLRemisol ChemChloride [Moles/Vol]103 mmol/DQoiuvq639 - 111 mmol/LRemisol ChemCO2 [Moles/Vol]23 mmol/L Clhwwo69 - 31 mmol/LRemisol ChemCobalamin (Vitamin B12) [Mass/Vol]156 pg/mL Cthufy94 - 1500 pg/mLRemisol ChemCreatinine [Mass/Vol]1.3 mg/dLNormal0.5 - 1.3 mg/dLRemisol KtqwrIQL38 mL/min/1.73 a0Ljnyny>=59mL/min/1.73 a3Ttamhud Chem Ferritin [Mass/Vol]113 ng/lMUehjjt51 - 336 ng/mLRemisol ChemFolate [Mass/Vol] 16.3 ng/mLNormal>=6.7ng/mLRemisol ChemGlucose [Mass/Vol]148 mg/pGRqzcek78 - 199 mg/dLRemisol ChemIron [Mass/Vol]113 ug/xCDtpppe69 - 153 mcg/dLRemisol ChemIron binding capacity [Mass/Vol]336 ug/bUTnrkhs211 - 400 mcg/dLRemisol TtnfBIN154 [iU]/yUrzkct60 - 218 Int._Unit/LRemisol ChemMagnesium [Mass/Vol]0.7 mg/dLInvalid Interpretation Code1.3 - 2.4 mg/dLRemisol ChemComment on above:Result Comment: Critical Result Verified by Previous Result Critical Result S_M.7 Called to and read back by: KELSIE CHAN at: 12/29/2023 14:47:41 by:AGPhosphate [Mass/Vol]2.8 mg/dLNormal1.9 - 4.6 mg/dL Remisol ChemPotassium [Moles/Vol]4.2 mmol/LNormal3.5 - 5.3 mmol/LRemisol Chem Sodium [Moles/Vol]138 mmol/JUydtsa409 - 145 mmol/LRemisol ChemTransferrin [Mass/Vol]240 mg/bDMgwkem112 - 370 mg/dLRemisol ChemUrea nitrogen [Mass/Vol]19 mg/dLNormal5 - 21 mg/dLRemisol ChemUrea nitrogen/Creatinine [Mass ratio]15 mg/mg Bsgpvg48 - 20Remisol ChemHEMATOLOGYOrdered By: SYSTEM SYSTEM on 12-29-2023 Basophils/100 WBC (Bld)1.3 %Normal0.0 - 2.0 %Remisol HemeBasophils/Leukocytes Auto (Bld) [Pure # fraction]0.1 E9/LNormal0.0 - 0.2 E9/LRemisol HemeEosinophils (Bld) [#/Vol]0.2 E9/LNormal0.0 - 0.5 E9/LRemisol HemeEosinophils/100 WBC (Bld) 3.2 %Normal0.0 - 8.0 %Remisol HemeErythrocyte distribution width (RBC) [Ratio] 13.0 %Nmerre78.9 - 14.2 %Remisol HemeHematocrit (Bld) [Volume fraction]38.4 % Wleqjx98.7 - 49.0 %Remisol HemeHemoglobin (Bld) [Mass/Vol]13.3 g/dLLow13.5 - 17.5 gm/dLRemisol HemeLymphocytes (Bld) [#/Vol]1.7 E9/LNormal1.0 - 4.0 E9/L Remisol HemeLymphocytes/100 WBC (Bld)24.1 %Rmxmwt48.0 - 50.0 %Remisol HemeMCH (RBC) [Entitic mass]33.3 rlCnzsjg95.0 - 34.0 pgRemisol HemeMCHC (RBC) [Mass/Vol] 34.7 g/kVKigvya55.4 - 36.0 gm/dLRemisol HemeMCV (RBC) [Entitic vol]96.2 fLNormal 80.0 - 100.0 fLRemisol HemeMonocytes (Bld) [#/Vol]0.7 E9/LNormal0.2 - 1.0 E9/L Remisol HemeMonocytes/100 WBC (Bld)10.6 %Normal4.0 - 14.0 %Remisol Heme Neutrophils (Bld) [#/Vol]4.2 E9/LNormal2.0 - 7.5 E9/LRemisol HemeNeutrophils/100 WBC (Bld)60.8 %Itqral53.0 - 75.0 %Remisol HtggUxyhrwfv731.0 E9/GEmqxku066.0 - 500.0 E9/LRemisol HemePlatelet mean volume (Bld) [Entitic vol]7.2 fLNormal6.4 - 10.8 fLRemisol HemeRBC (Bld) [#/Vol]4.0 E12/LLow4.3 - 5.9 E12/LRemisol Heme Reticulocytes/100 RBC (Bld)1.4 %Normal0.5 - 2.2 %Remisol HemeWBC corrected for nucl RBC Auto (Bld) [#/Vol]6.9 E9/LNormal4.0 - 11.0 E9/LRemisol HemeLab Miscellaneous-LCon 66-84-9815Rubn Nameurine magInvalid Interpretation [facility]'s HospitalComment on above:Order Comment: Random sample, not 24hr collection UrinePerformed By: #### [id number] #### [facility] [address] [place], [place] [address]Hmdsmdrgqm - Microbiology and Antimicrobial susceptibility Ordered By: Amber Jeffries on 70-41-9492Hiuqxknq identified Cx Nom (U)75,000 cfu/ml Streptococcus speciesFisher - [facility] MarylandURINALYSISOrdered By: SYSTEM SYSTEM on 34-26-2383Gwuyrvxx Auto Ql (U)1+ /HPFInvalid Interpretation Code Trace/HPFFTMC UA Auto SSBilirubin Ql (U)NegativeNormalNegativemg/dLFTMC UA Auto SSClarity (U)Clear (12/29/23 3:42 PM)NormalClearFTMC UA Auto SSColor (U)Light-Yellow 3 (12/29/23 3:42 PM)NormalYellowFTMC UA Auto SSComment on above:Interpretive Data: Microscopic readings are only performed on those samples that meet specific criteria set forth by [facility].Epithelial cells.squamous Auto (Urine sed) [#/Area]0-2 [...] *NA* (12/29/23 3:42 PM)Invalid Interpretation Code1.005 - 1.030[facility] UA Auto SS Urobilinogen (U) [Mass/Vol]NegativeNormalNegativemg/dLINTEGRIS GROVE [facility]OS[facility] Auto SSWBC Auto (Urine sed) [#/Area]>75 graded/HPFInvalid Interpretation Code0-5graded/HPFINTEGRIS [facility] UA Auto SSURINALYSISOrdered By: Dacia BAÑUELOS on 06-00-8499IH Spec DescClean Catch (12/29/23 3:42 PM)NormalINTEGRIS GR[facility]OSP[facility] UA Auto SSAmbulatory Visit Summaryon 12-27-2023 Ambulatory [...] REYNOLDS, Bryant Vogel Where: [facility] Interpretation [address] [place] [address]- \.br\ Someone Will Contact You Regarding These Appointments\.br\ [facility] External Ambulatory Referral, Nephrology, 12/27/23 8:10:00 EDT, HypomagnesemiaNewark HospitalAmbulatory Visit SummaryAmbulatory Visit Summary ERICKOANTONIO Garvin [...] REYNOLDS, Bryant Vogel [facility] Interpretation [address] [place] [address]- \.br\ Someone Will Contact You Regarding These Appointments\.br\ [facility] External Ambulatory Referral, Nephrology, 12/27/23 8:10:00 EDT, HypomagnesemiaNewark HospitalBMPon 73-19-9884Nvtzm gap [Moles/Vol]14 mmol/LNormal6-16 [facility] HospitalComment on above:Performed By: #### [id number] #### [facility] [address] [place], [place] [address]Akpbbkg [Mass/Vol]8.5 mg/dLLow8.9-11.1FWVUMedicine Harrison Community HospitalComment on above:Performed By: #### [id number] #### [facility] [address] [place], [place] [address]Yqihowdz [Moles/Vol]104 mmol/HInnbgm267-793KsmvsvNewark HospitalComment on above:Performed By: #### [id number] #### [facility] [address] [place], [place] [address]QE5 [Moles/Vol]24 mmol/UKcrkca15-93YihibuNewark Hospital Comment on above:Performed By: #### [id number] #### [facility] [address] [place], [place] [address]Trrsfocmyv [Mass/Vol]1.5 mg/dLHigh0.5-1.3FWVUMedicine Harrison Community HospitalComment on above:Performed By: #### [id number] #### [facility] [address] [place], [place] [address]Oqmmdrc [Mass/Vol]158 mg/eLJnexzk78-089UsutbnNewark HospitalComment on above:Performed By: #### [id number] #### [facility] [address] [place], [place] [address]Djszbnmxx [Moles/Vol]4.7 mmol/LNormal3.5-5.3FWVUMedicine Harrison Community HospitalComment on above:Performed By: #### [id number] #### [facility] [address] [place], [place] [address]Xbetbb [Moles/Vol]137 mmol/XVegifd917-221EwebaxNewark HospitalComment on above:Performed By: #### [id number] #### [facility] [address] [place], [place] [address]Chwc nitrogen [Mass/Vol]19 mg/dLNormal5-21Newark HospitalComment on above:Performed By: #### [id number] #### [facility] [address] [place], [place] [address]Eoyp nitrogen/Creatinine [Mass ratio]13 No BjjzmHazyqu67-67 [facility] HospitalComment on above:Performed By: #### [id number] #### [facility] [address] [place], [place] [address]MKTXHDJJGJplxzwd By: SYSTEM SYSTEM on 01-94-7123Grmye gap [Moles/Vol]14 mmol/LNormal6 - 16 mEq/LRemisol ChemCalcium [Mass/Vol]8.5 mg/dLLow 8.9 - 11.1 mg/dLRemisol ChemChloride [Moles/Vol]104 mmol/UQptzxe519 - 111 mmol/L Remisol ChemCO2 [Moles/Vol]24 mmol/OZertsj40 - 31 mmol/LRemisol ChemCreatinine [Mass/Vol]1.5 mg/dLHigh0.5 - 1.3 mg/dLRemisol NvbguULX66 mL/min/1.73 m2Low >=59mL/min/1.73 z6Mcooyqb ChemGlucose [Mass/Vol]158 mg/gUQkpajd59 - 199 mg/dL Remisol ChemMagnesium [Mass/Vol]0.9 mg/dLInvalid Interpretation Code1.3 - 2.4 mg/dLRemisol ChemComment on above:Result Comment: Critical Result Verified by Repeat Analysis Critical Result S_M.9 Called to and read back by: DOCTOR DIEGO at: 12/27/2023 20:26:51 by:[id number] [Moles/Vol]4.7 mmol/LNormal3.5 - 5.3 mmol/LRemisol ChemSodium [Moles/Vol]137 mmol/HOuudzj277 - 145 mmol/LRemisol ChemUrea nitrogen [Mass/Vol]19 mg/dLNormal5 - 21 mg/dLRemisol ChemUrea nitrogen/Creatinine [Mass ratio]13 mg/hyBelnkg51 - 20Remisol ChemFamily Medicine Office/Clinic Noteon 36-75-5649Bollhx Medicine Office/Clinic NoteFami Medicine Office/Clinic Note HPI Staff Alicja is a 68 year old male presenting for ER follow up ER followup: Hospital: [facility] Visit date: 12/23/23 Symptoms the patient dizziness, [...] data Procedure/Surgical History Ar (more content not included)...NormalNewark HospitalComment on above:Result Comment: Electronically Signed By: Ruiz REYNOLDS, Nancy Thompson\.br\Date and Time Signed: 12/27/23 08:08 EDTMagnesiumon 29-47-2286Ejjkyygir [Mass/Vol]0.9 mg/dLAbnormal1.3-2.4FWVUMedicine Harrison Community HospitalComment on above:Result Comment: Critical Result Verified by Repeat Analysis Critical Result S_M.9 Called to and read back by: DOCTOR DIEGO at: 12/27/2023 20:26:51 by:[id number] By: #### [id number] #### [facility] [address] [place], [place] [address]tGNWra 81-75-1476gRKM68 mL/min/1.73 m2Low>=59Newark HospitalComment on above:Order Comment: Order added by Discern Expert. Performed By: #### [id number] #### [facility] [address] [place], [place] [address]O Urineon 87-97-7518Trujvdoo identified Cx Nom (U)Microbiology PROCEDURE: Urine Culture [R1] SOURCE: U CleanCatch BODY SITE: COLLECTED DATE/TIME: 12/22/2023 08:35 EDT RECEIVED DATE/TIME: 12/22/2023 19:56 EDT START DATE/TIME: 12/22/2023 19:56 EDT FREE TEXT SOURCE: SHIRA WHATLEY, MARINO KEARNS CNP, MARINO Butler FINAL REPORTS Final Report [] Verified Date/Time: 12/24/2023 07:57 EDT 2,000 cfu/ml Mixed skin contaminants Performing Locations R1: This test was performed at: [facility], [address] [place] [address], [address] , , OprxseFmjbqjAdams County HospitalComment on above:Performed By: #### [id number] #### [facility] [address] [place] [address]VPLmd 36-20-7871Qomqzlj [Mass/Vol]4.4 g/dLNormal3.3-5.0Newark HospitalComment on above:Performed By: #### [id number] #### [address] [address]Brgkanu/Globulin (S) [Mass conc ratio]1.9Vfemsl1.1-2.2FWVUMedicine Harrison Community HospitalComment on above:Performed By: #### [id number] #### [facility] [address] [place] [address]PHI [Catalytic activity/Vol]62 Int._Unit/KScscnf67-84CzlsylNewark HospitalComment on above:Performed By: #### [id number] #### [facility] [address] [place] [address]QDT No additional P-5'-P [Catalytic activity/Vol]22 Int._Unit/L Normal6-46Newark HospitalComment on above:Performed By: #### [id number] #### [facility] [address] [place] [address]JDC [Catalytic activity/Vol]21 Int._Unit/LNormal5-43Newark HospitalComment on above:Performed By: #### [id number] #### [facility] [address] [place] [address]Quoippuhr [Mass/Vol]0.9 mg/dLNormal0.0-1.1FWVUMedicine Harrison Community HospitalComment on above:Performed By: #### [id number] #### [facility] [address] [place] [address]Lygwjkiq (S) [Mass/Vol]2.9 g/dLNormal1.4-4.0Newark HospitalComment on above:Performed By: #### [id number] #### [facility] [address] [place] [address]Tppoukz [Mass/Vol]7.3 g/dLNormal6.0-7.8Newark HospitalComment on above:Performed By: #### [id number] #### [facility] [address] [place] [address]Osaatswgupv 96-73-5727Tngmkfgdq [Mass/Vol]mg/dLAbnormal1.3-2.4 [facility] HospitalComment on above:Result Comment: Critical Result S_MG:<0.5 Called to and read back by: ANGELLA GUERRERO at: 408:18:07 by:AG Critical Result Verified by Repeat AnalysisPerformed By: #### [id number] #### [facility] [address] [place] [address]QMQ w/ Auto Diffon 36-75-0424Pwnhnhqbg/100 WBC (Bld)0.7 %Normal 0.0-2.0Newark HospitalComment on above:Performed By: #### [id number] #### [facility] [address] [place] [address]Emitrjwex/Leukocytes Auto (Bld) [Pure # fraction]0.1 E9/LNormal 0.0-0.2FWVUMedicine Harrison Community HospitalComment on above:Performed By: #### [id number] #### [facility] [address] [place] [address]Vtlcqbzqxto (Bld) [#/Vol]0.1 E9/LNormal0.0-0.5FWVUMedicine Harrison Community HospitalComment on above:Performed By: #### [id number] #### [facility] [address] [place] [address]Qauocofwhgs/100 WBC (Bld)1.5 %Normal0.0-8.0Newark HospitalComment on above:Performed By: #### [id number] #### [facility] [address] [place] [address]Vreuqtgtujq distribution width (RBC) [Ratio]13.3 %Normal 10.9-14.2FWVUMedicine Harrison Community HospitalComment on above:Performed By: #### [id number] #### [facility] [address] [place] [address]Noxiagiehp (Bld) [Volume fraction]38.5 %Seaqcv93.7-49.0Newark HospitalComment on above:Performed By: #### [id number] #### [facility] [address] [place] [address]Bgmiqggjmt (Bld) [Mass/Vol]13.2 g/dLLow13.5-17.5FWVUMedicine Harrison Community HospitalComment on above:Performed By: #### [id number] #### [facility] [address] [place] [address]Empzrpgskvb (Bld) [#/Vol]1.4 E9/LNormal1.0-4.0Newark HospitalComment on above:Performed By: #### [id number] #### [facility] [address] [place] [address]Dguyloxwpxs/100 WBC (Bld)18.7 %Alsvnv22.0-50.0Newark HospitalComment on above:Performed By: #### [id number] #### [facility] [address] [place], [place] [address]XVI (RBC) [Entitic mass]33.5 uvMjxpug34.0-34.0Newark HospitalComment on above:Performed By: #### [id number] #### [facility] [address] [place] [address]UZLQ (RBC) [Mass/Vol]34.3 g/tVZkjtxc33.4-36.0Newark HospitalComment on above:Performed By: #### [id number] #### [facility] [address] [place] [address]COD (RBC) [Entitic vol]97.5 xBAcxqjl10.0-100.0Newark HospitalComment on above:Performed By: #### [id number] #### [facility] [address] [place] [address]Cdcsocikd (Bld) [#/Vol]0.6 E9/LNormal0.2-1.0New[facility] HospitalComment on above:Performed By: #### [id number] #### [facility] [address] [place] [address]Jmgkfnfuicp (Bld) [#/Vol]5.3 E9/LNormal2.0-7.5FWVUMedicine Harrison Community HospitalComment on above:Performed By: #### [id number] #### [facility] [address] [place] [address]Nhpukebascs/100 WBC (Bld)70.6 %Ncxftv49.0-75.0Newark HospitalComment on above:Performed By: #### [id number] #### [facility] [address] [place] [address]Kitijuhe401.0 E9/AJwoyon621.0-500.0[facility] Comment on above:Performed By: #### [id number] #### [facility] [address] [place] [address]Yfftveay mean volume (Bld) [Entitic vol]7.6 fLNormal6.4-10.8 [facility] HospitalComment on above:Performed By: #### [id number] #### [facility] [address] [place], [place] [address]MDD (Bld) [#/Vol]4.0 E12/LLow4.3-5.9[facility] Comment on above:Performed By: #### [id number] #### [facility] [address] [place], [place] [address]QCD corrected for nucl RBC Auto (Bld) [#/Vol]7.4 E9/LNormal 4.0-11.0New[facility] HospitalComment on above:Performed By: #### [id number] #### [facility] [address] [place], [place] [address]ZCZFRXYSRNkzssgm By: Jaime Washburn on 85-39-8855Uswpo gap [Moles/Vol]19 mmol/LHigh6 - 16 mEq/LRemisol ChemCalcium [Mass/Vol]8.2 mg/dLLow 8.9 - 11.1 mg/dLRemisol ChemChloride [Moles/Vol]100 mmol/IOjo227 - 111 mmol/L Remisol ChemCO2 [Moles/Vol]23 mmol/MFzxpox74 - 31 mmol/LRemisol ChemCreatinine [Mass/Vol]1.6 mg/dLHigh0.5 - 1.3 mg/dLRemisol DnbvxXCA98 mL/min/1.73 m2Low >=59mL/min/1.73 w0Qaxsado ChemGlucose [Mass/Vol]255 mg/jSHipq85 - 199 mg/dL Remisol ChemPotassium [Moles/Vol]3.8 mmol/LNormal3.5 - 5.3 mmol/LRemisol Chem Sodium [Moles/Vol]138 mmol/ANkbdsu839 - 145 mmol/LRemisol ChemUrea nitrogen [Mass/Vol]17 mg/dLNormal5 - 21 mg/dLRemisol ChemUrea nitrogen/Creatinine [Mass ratio]11 mg/apUcztly87 - 20Remisol ChemCMPon 92-10-3509Smwii gap [Moles/Vol]19 mmol/LHigh6-16[facility] HospitalComment on above:Performed By: #### [id number] #### [facility] [address] [place], [place] [address]Ddkuald [Mass/Vol]8.2 mg/dLLow8.9-11.1FWVUMedicine Harrison Community HospitalComment on above:Performed By: #### [id number] #### [facility] [address] [place], [place] [address]Bdtcjpvz [Moles/Vol]100 mmol/JCbt103-404EkywyrNewark HospitalComment on above:Performed By: #### [id number] #### [facility] [address] [place], [place] [address]DX0 [Moles/Vol]23 mmol/PVhxnde65-80XquexfNewark Hospital Comment on above:Performed By: #### [id number] #### [facility] [address] [place], [place] [address]Snyjutiyou [Mass/Vol]1.6 mg/dLHigh0.5-1.3FWVUMedicine Harrison Community HospitalComment on above:Performed By: #### [id number] #### [facility] [address] [place], [place] [address]Rtnvbky [Mass/Vol]255 mg/xMMmcq15-025GvftupNewark HospitalComment on above:Performed By: #### [id number] #### [facility] [address] [place], [place] [address]Efwevsncw [Moles/Vol]3.8 mmol/LNormal3.5-5.3FWVUMedicine Harrison Community HospitalComment on above:Performed By: #### [id number] #### [facility] [address] [place], [place] [address]Umekpx [Moles/Vol]138 mmol/LUqcxow942-543AipvlnNewark HospitalComment on above:Performed By: #### [id number] #### [facility] [address] [place], [place] [address]Oyqu nitrogen [Mass/Vol]17 mg/dLNormal5-21New[facility] HospitalComment on above:Performed By: #### [id number] #### [facility] [address] [place], [place] [address]Dufg nitrogen/Creatinine [Mass ratio]11 No DfwocVtfhun47-07 [facility] HospitalComment on above:Performed By: #### [id number] #### [facility] [address] [place], [place] [address]Jwalvy Medicine Office/Clinic Noteon 91-26-5514Cenlnv Medicine Office/Clinic NoteHarley Private Hospital Medicine Office/Clinic Note HPI Staff Alicja [...] day(s), # 14 tab(s), Refills(s) 0, Pharmacy: [facility], 172, cm, 12/22/23 7:41:00 EDT, Height/Length Dosing, 107.8, kg, :41:00 EDT, Weight Dosing Urine Culture 2. Vomiting (R11.10: Vomiting, unspecified) Continue Zofran as needed Diet as tolerated Encourage fluids Ordered: ciprofloxacin, 500 mg = 1 tab(s), Oral, q12hr, X 7 day(s), # 14 tab(s), Refills(s) 0, Pharmacy: [facility], 172, cm, 12/22/23 7:41:00 EDT, Height/Length Dosing, 107.8, kg, :41:00 EDT, Weight Dosing CBC w/ Auto Diff Comprehensive Metabolic Panel Lab Specimen Collect 55147 Magnesium Level Urnls Dip Stick Auto w/o Microscopy POC 23638 3. Former smoker (Z87.891: Personal history of nicotine dependence) Encouraged to continue as a non-smoker Ordered: Lab Specimen Collect 32232 Urnls Dip Stick Auto w/o Microscopy POC 20179 4. BMI 36.0-36.9,adult (Z68.36: Body mass index [...] at subsequent visits. Ordered: Lab Specimen Collect 85768 Urnls Dip Stick Auto w/o Microscopy POC 88101 Orders: magnesium oxide, 400 mg = 1 tab(s), Oral, Daily, # 60 tab(s), Refills(s) 0, Pharmacy: [facility], 172, cm, 12/22/23 7:41:00 EDT, [...] disorder, recurrent, moderate Murmur (more content not included)...[facility] CenterComment on above: Result Comment: Electronically Signed By: MARINO KEARNS CNP\.oliver\Date and Time Signed: 12/22/23 10:28 EDTHEMATOLOGYOrdered By: SYSTEM SYSTEM on 12-22-2023 Basophils/100 WBC (Bld)0.7 %Normal0.0 - 2.0 %Remisol HemeBasophils/Leukocytes Auto (Bld) [Pure # fraction]0.1 E9/LNormal0.0 - 0.2 E9/LRemisol HemeEosinophils (Bld) [#/Vol]0.1 E9/LNormal0.0 - 0.5 E9/LRemisol HemeEosinophils/100 WBC (Bld) 1.5 %Normal0.0 - 8.0 %Remisol HemeErythrocyte distribution width (RBC) [Ratio] 13.3 %Oxiiqe31.9 - 14.2 %Remisol HemeHematocrit (Bld) [Volume fraction]38.5 % Mcfidp41.7 - 49.0 %Remisol HemeHemoglobin (Bld) [Mass/Vol]13.2 g/dLLow13.5 - 17.5 gm/dLRemisol HemeLymphocytes (Bld) [#/Vol]1.4 E9/LNormal1.0 - 4.0 E9/L Remisol HemeLymphocytes/100 WBC (Bld)18.7 %Wvhxbw76.0 - 50.0 %Remisol HemeMCH (RBC) [Entitic mass]33.5 ytKywkpj69.0 - 34.0 pgRemisol HemeMCHC (RBC) [Mass/Vol] 34.3 g/kCZlercj18.4 - 36.0 gm/dLRemisol HemeMCV (RBC) [Entitic vol]97.5 fLNormal 80.0 - 100.0 fLRemisol HemeMonocytes (Bld) [#/Vol]0.6 E9/LNormal0.2 - 1.0 E9/L Remisol HemeMonocytes/100 WBC (Bld)8.5 %Normal4.0 - 14.0 %Remisol Heme Neutrophils (Bld) [#/Vol]5.3 E9/LNormal2.0 - 7.5 E9/LRemisol HemeNeutrophils/100 WBC (Bld)70.6 %Izlqui00.0 - 75.0 %Remisol AavsUsrhacnl307.0 E9/TTgxwnu449.0 - 500.0 E9/LRemisol HemePlatelet mean volume (Bld) [Entitic vol]7.6 fLNormal6.4 - 10.8 fLRemisol HemeRBC (Bld) [#/Vol]4.0 E12/LLow4.3 - 5.9 E12/LRemisol HemeWBC corrected for nucl RBC Auto (Bld) [#/Vol]7.4 E9/LNormal4.0 - 11.0 E9/LRemisol HemeeGFRon 97-12-9307rEBK58 mL/min/1.73 m2Low>=59[facility] Comment on above:Order Comment: Order added by Discern Expert.Performed By: #### [id number] #### [facility] [address] [address]Xjoiec Summary.on 15-39-4196Yhpghm Summary. SFBUOtqx83RVs7eBk+PGhlYWQ+FQ0CECBkG13deLLdsR5xT5TIMOtHGudiHCVZZWnTLqMhdlIbRM0dcX NjZXJu [file] pLXbq8A3YOHyo (more content not included)...[facility] IntraOperative Documentson 07-87-6218ZodqjRpplfzmmt Documents [id number]#1.00TIFFirelands Regional Medical CenterConsent for Procedure/Surgeryon 44-99-5725Uksxdzz for Procedure/Surgery [id number]#1.00TIFFirelands Regional Medical CenterConsent for Treatmenton 61-18-1239Qobrbdh for Treatment [id number]#1.00[facility] HospitalInpatient Patient Summaryon 25-15-1944Wpwnolghd Patient Summary [place] [id number] Clinical Summary Person Information Name: ALICJA REYES Age: 68 Years : 1955 Sex: Male PCP: Nancy Grace MD Marital Status: Race: White Ethnicity: Non- or Language: Hong Konger Visit Id: Visit Reason: FEELING OF INCOMPLETE BLADDER EMPTYING AND BPH WITH LUTS Speciality: Acuity: Enc Type: Outpatient Med Service: Surgery Arrival: 11/28/2023 13:21:43 Discharge: Dispo Type: Address: [address] [place] [id number] Provider Notes: Diagnosis: Problems Active Hypertension Feeling [...] Follow up: With: Address: When: Bryant TAO [address] [place] [address], [address], [place] [address] [facility] (1) Comments: As we discussed, [...] State Cardiology Follow Up (FT) FT.[facility] 12/16/2023 9:00 AM 12/16/2023 9:15 AM Confirmed URO Office Visit [facility] ZAIN Casiano 01/10/2024 8:15 AM 01/10/2024 8:30 AM Confirmed FM Medicare Wellness Subsequent [facility] 07/09/2024 8:00 AM 07/09/2024 (more content not included)...[facility] CenterIntraOperative Documentson 76-92-6258MxjtpYwpzyltib Documents [id number]#1.00TIFFNoAdams County HospitalMain OR Intraoperative Recordon 44-55-4340Xduw OR Intraoperative Record IntraOp Document Type FTURO Summary Primary Physician: Bryant TAO MD Finalized Date/Time: 11/28/23 15:54:06 Pt. Name: ALICJA REYESO.B./Sex: 1955 Male Med Rec #: [id number] Physician: Bryant TAO MD Financial #: [id number] Pt. Type: O Room/Bed: / Admit/Disch: 11/28/23 [...] Angie Vogel Role Performed Surgeon - Primary Organizational Research Consultant - Primary Scrub - Primary Time In [...] Signatures Signed By: Monica Lanier RN 11/28/23 15:54NoAdams County HospitalMain OR Preoperative Recordon 70-75-6272Kpbl OR Preoperative RecordHolding Area Document Type FTURO Summary Primary Physician: Bryant TAO MD Finalized Date/Time: 11/28/23 15:10:28 Pt. Name: ALICJA REYES /Sex: 1955 Male Med Rec #: [id number] Physician: Bryant TAO MD Financial #: [id number] Pt. Type: O Room/Bed: / Admit/Disch: 11/28/23 [...] Complaints of Pain: No Skin Integrity Intact, [place], Warm, & Dry Vitals - EU Blood Pressure 170/90 Pulse 77 bpm Respirations 80 br/min SPO2 Last Modified By: Ivania Hager LPN 11/28/23 15:10:23 Finalized By: Ivania Hager LPN Document Signatures Signed By: Ivania Hager LPN 11/28/23 15:10NoAdams County HospitalOperative Reporton [id number] ReportPatient: ALICJA REYES Age: 68 years Sex: Male : 1955 Associated Diagnoses: None Author: Bryant TAO MD Procedure Operative Information Details: Date/ Time: 11/28/2023 15:54:00. Pre-Op Dx: Feeling of incomplete bladder emptying (MXY05-HZ R39.14, Working, Medical), Hypotonic neurogenic bladder (QAL85-PB N31.9, Working, Medical), Urinary retention (QNV72-AD R33.9, Working, Medical), BPH with obstruction/lower urinary tract symptoms (KIC63-TP N40.1, Working, Medical). Post-Op Dx: Same. Anesthesia [...] light on this. He agrees with the plan..[facility] Medical CenterComment on above: Result Comment: Electronically Signed By: Bryant TAO MD\.br\Date and Time Signed: 11/28/23 15:57 EDTOutpatient Surgery Discharge Instructionon 11-28-2023 Outpatient Surgery Discharge Instruction [id number]#1.00TIFFNoWayne Upmc Western MarylandOutpatient Surgery Discharge Instruction [address] [address] Patient Discharge Instructions PERSON INFORMATION [...] Follow up: With: Address: When: Bryant Rider [facility], [address], [address] [address] Business (1) Comments: As we [...] emptying the bladder intermittently. Type Location Start [facility] Cardiology Follow Up (FT) FT.[facility] [place] 12/16/2023 9:00 AM 12/16/2023 9:15 AM Confirmed URO Office Visit [facility] ZAIN Casiano 01/10/2024 8:15 AM 01/10/2024 8:30 AM Confirmed Medicare Wellness Subsequent [facility] 07/09/2024 8:00 AM 07/09/2024 9:00 AM Confirmed [...] to serve you. [facility] you [facility] Office/Clinic Notedalton 08-25-5403Wijxgh Medicine Office/Clinic NoteI Staff Alicja is a [...] Date Status Comments influe (more content not included)...[facility] Medical CenterComment on above:Result Comment: Electronically Signed By: Ruiz REYNOLDS, Nancy Cordoba.br\Date and Time Signed: 11/01/23 13:00 EDTPatient Educationon 28-04-3682Rjcmmbh Education Nutrition BMI for Adults What is [...] numbers. This can be done either in [place] ([place] or metric measurements. Note that charts and online BMI calculators are available to help you find your BMI quickly and easily without having to do these calculations yourself. To calculate your BMI in [place] (U.[place] measurements: 1. Measure your weight in [...] for Disease Control and Prevention: www.cdc.gov ? [place] Heart Association: www.heart.org ? National Heart, Lung, and Blood [place]: www.nhlbi.nih.gov Summary ? Body mass index (BMI) is a number that is calculated from a person's weight and height. ? BMI may help estimate how much of a person's weight is composed of fat. BMI can help identify those who may be at higher risk for certain medical problems. ? BMI can be measured using [place] measurements or metric measurements. ? BMI charts are used to identify whether you are underweight, normal weight, overweight, or obese. This information is not intended to replace advice given to you by your health care provider. Make sure you discuss any questions you have with your health care provider. Document Revised: 02/13/2020 Document Reviewed: 12/21/2019 [employer] Patient Education ? 2022 CloudSlides.[facility] Consent for Treatmenton 18-45-8527Hvnyhcz for Treatment [id number]#1.00TIFFNoAdams County HospitalHeart and Vascular Office/Clinic Noteon 54-75-7146Qsegf and Vascular Office/Clinic NoteChief Complaint 2 month [...] with voice recognition artificial intelligence software, specifically Vyopta, TheFriendMail and or Advanced BioNutrition. Substitutions may have occurred due to the [...] mg Tab, 400 m (more content not included)...[facility] CenterComment on above:Result Comment: Electronically Signed By: Jacinto Ramirez PA-C\.oliver\Date and Time Signed: 10/19/23 08:50 EDTPhysician Order on 74-10-2446Hhebbhfxs [id number]#1.00TIFF [facility] CenterPathology Noteon 78-28-0477Lliomzqzl Note [id number]#1.00TIFFNormLake County Memorial Hospital - WestAmbulatory Visit Summaryon 57-69-2005Bdjvgivose Visit Summary ALICJA REYES :1955 Visit Date:09/22/2023 [...] Bryant TAO MD Where: [facility] [address] [address]- \.br\ You Need to Schedule the Following Appointments\.br\ Follow Up with Bryant TAO MD, URL When: \.br\ Where:\.br\ [facility] [address] [facility] [address]\.br\ [place] [address]-\.br\ \.br\ Medications\.br\ What How Much When Instructions\.br\ [...] including vitamins, herbs, eye drops, creams, and vvpq-lbf-hwkmbpa medicines.\.br\ ? \.br\ Any problems you or [...] you to take them.\.br\ ? \.br\ Taking dicv-yej-acrsvtf medicines, vitamins, herbs, and supplements.\.br\ Tests\.br\ You [...] A medicine to help you relax [facility]/Cl[facility] Noteon 38-83-9602Cxurdjq Office/Clinic NoteChief Complaint F/U to review path [...] with voice recognition artificial intelligence software, specifically Vyopta, TheFriendMail and or Advanced BioNutrition. Substitutions may have occurred due to the inherent limitations of voice recognition and artificial intelligence software. 1. Elevated PSA (R97.20: Elevated prostate specific antigen [PSA]) PSA: 06/22/11 - 0.41 11/09/18 - 0.41 01/10/20 - 0.36 02/03/21 - 0.44 07/13/22 - 0.43 04/04/23 - 6.1 MRI of prostate 07/21/23 [facility] [place] - A focal area involving the anterior [...] urinary tract symptoms) MRI of prostate 07/21/23 [facility] [place] - Prostate volume 26 cc. Grossly distended [...] Feeling of incomplete bladder emptying) 06/04/23 - [facility] ER due to chills and dizziness [...] TID, UACS, BUN/CR, and (more content not included)...[facility] CenterComment on above:Result Comment: Electronically Signed By: EMMY REYNOLDS, Bryant Vogel\.br\Date and Time Signed: 09/22/23 13:08 EDT\.br\Electronically Co-Signed By: Allison Hernandez\Date and Time Co-Signed: 09/22/23 13:03 EDTHeart and Vascular Office/Clinic Noteon 14-79-7974Nxveq and Vascular Office/Clinic NoteChief Complaint here for [...] with voice recognition artificial intelligence software, specifically Vyopta, TheFriendMail and or Advanced BioNutrition. Substitutions may have occurred due to the inherent limitations of voice recognition and artificial intelligence software. ATTESTATION: Documentation services were performed after patient or guardian consented to allow [employer] to record this visit. SAMANTHA mis specialist and provider reviewed before signing. SAMANTHA: [...] mEq= 1 cap(s), Oral (more content not included)...[facility] CenterComment on above:Result Comment: Electronically Signed By: Yfn REYNOLDS, Troy Santamaria\.br\Date and Time Signed: 09/14/23 09:16 EDT\.br\Electronically Co-Signed By: Darling Keen\.br\Date and Time Co-Signed: 08/18/2417:28 EDTPathology Noteon 90-04-0587Mbwosjozs Note [id number]#1.00TIFFDayton VA Medical CenterGlucose Glucometer (BldC) [Mass/Vol]Ordered By: Bryant Tao on 09-09-2023 Glucose [Mass/Vol]199 mg/dLMarietta Osteopathic ClinicComment on above: Random Glucose Reference Range is dependent on time and content of last meal. Glucose of more than 200 mg/dL in a nonstressed, ambulatory subject supports the diagnosis of Diabetes Mellitus.Operative Reporton 81-27-1876Qlzstyloh Report [id number]#1.00TIFFirelands Regional Medical CenterProgress Note-Physicianon 31-89-0905Nkduimkc Note-PhysicianPatient: ALICJA REYES Age: 68 years Sex: [...] diabetes mellitus with hypercholesterolemia / SNOMED CT 780933318 / Confirmed linked DM with HLD per OP CDI policy. Tachycardia / SNOMED CT 2819097 / Confirmed Right flank pain / SNOMED CT 532510339 / Confirmed Urinary retention / SNOMED CT 041020578 / Confirmed Diabetic nephropathy associated with type 2 diabetes mellitus / SNOMED CT 1603709602 / Confirmed Recurrent UTI / SNOMED CT 204252051 / Confirmed Major depressive disorder, recurrent, moderate / SNOMED CT 867080548 / Confirmed added per 06/10/2023 query response. Elevated PSA / SNOMED CT 0868792789 / Confirmed Prostate cancer screening / SNOMED CT 505379298 / Confirmed Kidney stone / SNOMED CT 619467575 / Confirmed Incomplete bladder emptying / SNOMED CT 193716382 / Confirmed Hypokalemia / SNOMED CT 69973851 / Confirmed Hypercholesterolemia / SNOMED CT 97296378 / Confirmed Murmur / SNOMED CT 235172158 / Confirmed Gastroesophageal reflux disease without esophagitis / ICD-10-CM K21.9 / Confirmed Fatigue / SNOMED CT 035079293 / Confirmed Primary hypertension / SNOMED CT 33123842 / Confirmed Edema / SNOMED CT 885027533 / Confirmed SOB (shortness of breath) on exertion / SNOMED CT 964146215 / Confirmed Dizziness / SNOMED CT 8272298174 / Confirmed Diastolic dysfunction / SNOMED CT 5452752 / Confirmed Hematuria / SNOMED CT 339264142 / Confirmed BPH with urinary obstruction / SNOMED CT 9012045825 / Confirmed Alcohol abuse / SNOMED CT 77911777 / Confirmed Canceled: UTI symptoms / SNOMED CT 692492299 Canceled: Type 2 diabetes mellitus without complication, without long-term current use of insulin /ICD-10-CM E11.9 Canceled: Tachycardia / SNOMED CT 8858531 Canceled: Hospital discharge follow-up / SNOMED CT 6672751243 Canceled: Obesity / SNOMED CT 5813576155 Canceled: Alcohol abuse, in remission / SNOMED CT 488708892 Canceled: Morbid obesity / SNOMED CT 490522885 added per 05/13/2023 query response. Canceled: Urinary frequency / SNOMED CT 152384628 Canceled: Disorder of prostate / SNOMED CT 01059558 Canceled: Alcohol abuse / SNOMED CT 83813794 Histories Procedure history: back surgery. Comments: 11/15/2012 8:03 Susan Howard RN lower back Arthroscopy right knee ([id number]). Comments: 11/15/2012 8:04 Susan Howard RN right hand and elbow surgery LEFT. Comments: 11/15/2012 8:04 Susan Howard RN left Carpal tunnel release LEFT ([id number]). Hand tendon repaired LEFT ([id number]). Comments: 01/13/2023 11:49 Ruthann Mathur LPN left thumb tendon Spinal fusion x2 ([id number]). Social History Social & Psychosocial Habits Alcohol [...] adequate air exchange. Cardiovascular: Regular rhythm. Plan [place] Society of Anesthesiologists (ASA) physical status classification: Class III. Anesthetic Preoperative Plan: Anesthesia General.[facility] CenterComment on above:Result Comment: Electronically Signed By: Abraham Pitts DO, Juan Nobles\Date and Time Signed: 09/02/23 09:03 EDTCHEMISTRYOrdered By: Lab ROPUser on 24-21-8054Btzxvus [Mass/Vol]156 mg/lMWlkt42 - 99 mg/dLINTEGRIS GROVE [facility] POC SubsectionPOC Device [id number] 1Invalid Interpretation CodeINTEGRIS GROVE HOSPITAL [facility] POC SubsectionPOC User [id number] 1Invalid Interpretation CodeINTEGRIS GROVE [facility]OSPITAL [facility] POC Subsection POC UsernameAJOSE WINNInvalid Interpretation CodeINTEGRIS GROVE HOSPITAL [facility] POC Subsection Capillary Glucose POCon 69-68-4307Ctjzeuf [Mass/Vol]156 mg/nMPyhm34-61XcfdbqNewark HospitalComment on above:Performed By: #### [id number] ####[facility] [address] [place], [place] [address]Obpiyqq for Procedure/Surgeryon 60-92-8891Lbohkml for Procedure/Surgery [id number]#1.00TIFFirelands Regional Medical CenterConsent for Treatmenton 34-15-1508Lgqpjvz for Treatment [id number]#1.00TIFFirelands Regional Medical CenterH&P Updateon 09-01-2023H&P Update [id number]#1.00[facility] HospitalProgress Note-Physicianon 00-19-0174Xnfyijvr Note-PhysicianPatient: ALICJA REYES Age: 68 years Sex: [...] patient and his agree with the plan.NormalFisher Hutchinson Medical CenterComment on above:Result Comment: Electronically Signed By: EMMY REYNOLDS, Bryant Howard\Date and Time Signed: 09/01/23 14:46 EDTPhysician Orderon 39-80-2068Vhmzvpxhw [id number]#1.00TIFFNormal Newark HospitalU Microalbon 01-92-1797Dcglbmz DL <= 20 mg/L (U) [Mass/Vol]7.8 mg/dLHigh0.0-1.9Newark HospitalComment on above: Performed By: #### [id number] ####[facility] Tsgeahm[address] [facility] Hospitaldylanlong island community hospitaladdyPLYMOUTH, [place] [address]Pxmqqlyor Orderon 04-81-3330Jsnfpvstq Order [id number]#1.00TIFFNormalNewark HospitalU Protein/Creat Ratioon 77-20-5921Fpvwxqx/Creatinine (U) [Ratio]49.30 mg/gm CrNormal.00-200.00Newark HospitalComment on above:Performed By: #### [id number] ####[facility] [address] [place] [address], [id number] Vwgakcytia58.0 mg/dLInvalid Interpretation [facility] HospitalComment on above:Performed By: #### [id number] ####[facility] [address] [place] [address], UV00676Bl Total Wrgnsen43.7 mg/dLInvalid Interpretation [facility]'s HospitalComment on above: Performed By: #### [id number] ####[facility] [address] [place], [place]Blewgphgze Visit Summaryon 92-75-7868Guzjkiskza Visit Summary ALICJA REYES :1955 Visit Date:08/15/2023 [...] Yfn REYNOLDS, Troy Santamaria Where: [facility] [place] 2023 1:30 PM EDT With: Where: [facility] Tuesday 8:00 AM EST With: Where: [facility] [place]NoalNewark HospitalBMPon 70-36-0940Nrmwu gap [Moles/Vol]15 mmol/LNormal-16Newark HospitalComment on above:Performed By: #### [id number], [id number], [id number] #### [facility] [address] [place], [place] [address]Vrhqflh [Mass/Vol]8.3 mg/dLLow8.9-11.1FWVUMedicine Harrison Community HospitalComment on above:Performed By: #### [id number], [id number], [id number] #### [facility] [address] [place], [place] [address]Ksiuqofn [Moles/Vol]101 mmol/ZXbnfqg349-244OdtzboNewark HospitalComment on above:Performed By: #### [id number], [id number], [id number] #### [facility] [address] [place], [place] [address]NX4 [Moles/Vol]27 mmol/XWaruaj52-35EqgrguNewark Hospital Comment on above:Performed By: #### [id number], [id number], [id number] #### [facility] [address] [place], [place] [address]Hyponihyso [Mass/Vol]1.4 mg/dLHigh0.5-1.3FWVUMedicine Harrison Community HospitalComment on above:Performed By: #### [id number], [id number], [id number] #### [facility] [address] [place], [place] [address]Nxnpgzf [Mass/Vol]258 mg/lZTmml91-629ZvesmlNewark HospitalComment on above:Performed By: #### [id number], [id number], 0571337 #### [facility] [address] [place], [place] [address]Lexgknqwo [Moles/Vol]3.6 mmol/LNormal3.5-5.3FWVUMedicine Harrison Community HospitalComment on above:Performed By: #### [id number], [id number], [id number] #### [facility] [address] [place], [place] [address]Nvsxjh [Moles/Vol]139 mmol/THukamn622-512PzvtiqNewark HospitalComment on above:Performed By: #### [id number], [id number], 7265811 #### [facility] [address] [place], [place] [address]Pjqo nitrogen [Mass/Vol]16 mg/dLNormal5-21Newark HospitalComment on above:Performed By: #### [id number], [id number], 5006956 #### [facility] [address] [place], [place] [address]Ykqf nitrogen/Creatinine [Mass ratio]11 No ZottoXzdvja40-68 Newark HospitalComment on above:Performed By: #### [id number], 91644232, 4575343 #### [facility] [address] [place], [place] [address]BRCMNCJMKSawyvyg By: SYSTEM SYSTEM on 74-38-5505Xviac gap [Moles/Vol]15 mmol/LNormal6 - 16 mEq/LRemisol ChemCalcium [Mass/Vol]8.3 mg/dLLow 8.9 - 11.1 mg/dLRemisol ChemChloride [Moles/Vol]101 mmol/HHeujlt676 - 111 mmol/L Remisol ChemCO2 [Moles/Vol]27 mmol/RCpgkzh71 - 31 mmol/LRemisol ChemCreatinine [Mass/Vol]1.4 mg/dLHigh0.5 - 1.3 mg/dLRemisol HuelrWFN07 mL/min/1.73 m2Low >=59mL/min/1.73 p5Ppmtxne ChemGlucose [Mass/Vol]258 mg/rOUvbm15 - 199 mg/dL Remisol ChemPotassium [Moles/Vol]3.6 mmol/LNormal3.5 - 5.3 mmol/LRemisol Chem Sodium [Moles/Vol]139 mmol/DUcitqf685 - 145 mmol/LRemisol ChemUrea nitrogen [Mass/Vol]16 mg/dLNormal5 - 21 mg/dLRemisol ChemUrea nitrogen/Creatinine [Mass ratio]11 mg/lvZhgjyi03 - 20Remisol ChemCHEMISTRYOrdered By: Irma Irwin on 43-84-4230PiK3n (Bld) [Mass fraction]7.4 %High<=5.9%[facility] ChemAutoSSFamily Medicine Office/Clinic Noteon 72-93-0914Ktowzu Medicine Office/Clinic NoteHPI Staff Lima is a [...] ordering him a BP unit to [facility]. needszofran refilled to [facility] also [...] 7:04:00 EDT, Weight Dosing (more content not included)...NormalNewark HospitalComment on above: Result Comment: Electronically Signed By: Ruiz REYNOLDS, Nancy Cordoba.br\Date and Time Signed: 08/15/23 07:18 BKXKqyF3fao 24-60-5477OfJ4n (Bld) [Mass fraction]7.4 % High<=5.9Newark HospitalComment on above:Performed By: #### [id number], [id number], [id number] #### [facility] [address] [place], [place] [address]Auayxwi Educationon 91-98-6872Uadetjs EducationNutrition BMI for Adults What is BMI? [...] numbers. This can be done either in [place] ([place] or metric measurements. Note that charts and online BMI calculators are available to help you find your BMI quickly and easily without having to do these calculations yourself. To calculate your BMI in [place] ([place] measurements: 1. Measure your weight in [...] for Disease Control and Prevention: www.cdc.gov ? [place] Heart Association: www.heart.org ? National Heart, Lung, and Blood [place]: www.nhlbi.nih.gov Summary ? Body mass index (BMI) is a number that is calculated from a person's weight and height. ? BMI may help estimate how much of a person's weight is composed of fat. BMI can help identify those who may be at higher risk for certain medical problems. ? BMI can be measured using [place]er measurements or metric measurements. ? BMI charts are used to identify whether you are underweight, normal weight, overweight, or obese. This information is not intended to replace advice given to you by your health care provider. Make sure you discuss any questions you have with your health care provider. Document Revised: 02/13/2020 Document Reviewed: 12/21/2019 [employer] Patient Education ? 2022 CloudSlides.NormalNewark Hospital eGFRon 84-49-7593wHWU95 mL/min/1.73 m2Low>=59Newark HospitalComment on above:Order Comment: Order added by Discern Expert.Performed By: #### [id number], [id number], [id number] #### [facility] [address] [place] [address]MYCRJBJQIKnjdkim By: SYSTEM SYSTEM on 70-26-0082Vqigl gap [Moles/Vol]13 mmol/LNormal6 - 16 mEq/LRemisol ChemCalcium [Mass/Vol]8.2 mg/dLLow 8.9 - 11.1 mg/dLRemisol ChemChloride [Moles/Vol]98 mmol/POrq619 - 111 mmol/L Remisol ChemCO2 [Moles/Vol]32 mmol/LHigh21 - 31 mmol/LRemisol ChemCreatinine [Mass/Vol]1.2 mg/dLNormal0.5 - 1.3 mg/dLRemisol RsnerCFU58 mL/min/1.73 e1Rsahta >=59mL/min/1.73 f2Yzrcytv ChemGlucose [Mass/Vol]195 mg/hFNsazeq36 - 199 mg/dL Remisol ChemPotassium [Moles/Vol]3.3 mmol/LLow3.5 - 5.3 mmol/LRemisol ChemSodium [Moles/Vol]140 mmol/THjvwbb737 - 145 mmol/LRemisol ChemUrea nitrogen [Mass/Vol] 14 mg/dLNormal5 - 21 mg/dLRemisol ChemUrea nitrogen/Creatinine [Mass ratio]12 mg/smOvwofg98 - 20Remisol ChemCOAGULATIONOrdered By: Mariya Colon on 99-55-8867kMZZ Coag (PPP) [Time]32.1 xDxawct84.1 - 36.5 second(s)[facility] Auto Coag Comment on above:Interpretive Data: Parameter [...] same coagulation reagent and instrumentation as [facility]. Currently there are no coagulation studies available worldwide for children to 14 days, andno normal ranges. Heparin therapeutic range (represented by Anti-Factor Xa activity of 0.2 - 0.4 U/mL) corresponds to PTT of 56.6 - 109.0 sec.INR Coag (PPP) [Relative time]1.17 {INR}Invalid Interpretation CodeINTEGRIS GROVE HOSPITAL – GROVE Auto CoagComment on above:Interpretive Data: INR results are specifically intended to assess patients stabilized on long-term Anticoagulation therapy suggested INR s Less Intensive Anticoagulation 2.0 3.0 Conventional Range 3.0 4.5PT Coag (PPP) [Time]13.1 sHigh9.4 - 12.5 second(s)[facility] Auto CoagComment on above:Interpretive Data: 15 days [...] same coagulation reagent and instrumentation as [facility]. Currently there are no coagulation studies available worldwide for children to 14 days, andno normal ranges.HEMATOLOGYOrdered By: SYSTEM SYSTEM on 03-64-7187Wixpsbbfa/100 WBC (Bld)0.9 %Normal0.0 - 2.0 %Remisol HemeBasophils/Leukocytes Auto (Bld) [Pure # fraction]0.0 E9/LNormal0.0 - 0.2 E9/LRemisol HemeEosinophils (Bld) [#/Vol]0.2 E9/LNormal0.0 - 0.5 E9/LRemisol HemeEosinophils/100 WBC (Bld)3.1 %Normal0.0 - 8.0 %Remisol HemeErythrocyte distribution width (RBC) [Ratio]14.6 %High10.9 - 14.2 %Remisol HemeHematocrit (Bld) [Volume fraction]37.7 %Jingao39.7 - 49.0 % Remisol HemeHemoglobin (Bld) [Mass/Vol]12.7 g/dLLow13.5 - 17.5 gm/dLRemisol Heme Lymphocytes (Bld) [#/Vol]1.3 E9/LNormal1.0 - 4.0 E9/LRemisol HemeLymphocytes/100 WBC (Bld)23.3 %Dxttqb95.0 - 50.0 %Remisol HemeMCH (RBC) [Entitic mass]31.7 pg Ynffcp37.0 - 34.0 pgRemisol HemeMCHC (RBC) [Mass/Vol]33.7 g/xPMrotki00.4 - 36.0 gm/dLRemisol HemeMCV (RBC) [Entitic vol]94.0 rKFvexht09.0 - 100.0 fLRemisol Heme Monocytes (Bld) [#/Vol]0.6 E9/LNormal0.2 - 1.0 E9/LRemisol HemeMonocytes/100 WBC (Bld)10.0 %Normal4.0 - 14.0 %Remisol HemeNeutrophils (Bld) [#/Vol]3.6 E9/L Normal2.0 - 7.5 E9/LRemisol HemeNeutrophils/100 WBC (Bld)62.7 %Otlliz30.0 - 75.0 %Remisol HemePlatelet mean volume (Bld) [Entitic vol]7.7 fLNormal6.4 - 10.8 fL Remisol HemePlatelets (Bld) [#/Vol]237.0 E9/JJbibrn396.0 - 500.0 E9/LRemisol HemeRBC (Bld) [#/Vol]4.0 E12/LLow4.3 - 5.9 E12/LRemisol HemeWBC corrected for nucl RBC Auto (Bld) [#/Vol]5.8 E9/LNormal4.0 - 11.0 E9/LRemisol HemeCreatinine (Bld) [Mass/Vol]Ordered By: Ramandeep Porter on 00-90-0983Dqwbuzvabl [Mass/Vol]1.2 mg/dL0.6-1.3FMercy HealthComment on above:ER/ESD physician is notified/shown all ISTAT results.Critical values may be confirmed by laboratorytesting ifdeemed necessary by ER attending doctor.No Panel Information Ordered By: Ramandeep Porter on 68-85-8433Qpdgkxc Estimated GFR (eGFR)> 60.0 [facility]opathic ClinicCHEMISTRYOrdered By: SYSTEM SYSTEM on 48-32-3971Ppdwp gap [Moles/Vol]15 mmol/LNormal6 - 16 mEq/LRemisol ChemCalcium [Mass/Vol]8.6 mg/dLLow8.9 - 11.1 mg/dLRemisol ChemChloride [Moles/Vol]100 mmol/L Hse152 - 111 mmol/LRemisol ChemCO2 [Moles/Vol]28 mmol/MKgzshr91 - 31 mmol/L Remisol ChemCreatinine [Mass/Vol]1.3 mg/dLNormal0.5 - 1.3 mg/dLRemisol ChemeGFR 59 mL/min/1.73 z5Bwhuhe>=59mL/min/1.73 m8Rqxxyxp ChemGlucose [Mass/Vol]284 mg/dL High55 - 199 mg/dLRemisol ChemPotassium [Moles/Vol]4.1 mmol/LNormal3.5 - 5.3 mmol/LRemisol ChemSodium [Moles/Vol]139 mmol/ZYsqgdm998 - 145 mmol/LRemisol Chem Urea nitrogen [Mass/Vol]11 mg/dLNormal5 - 21 mg/dLRemisol ChemUrea nitrogen/Creatinine [Mass ratio]8 mg/mgLow10 - 20Remisol ChemCHEMISTRYOrdered By: SYSTEM SYSTEM on 48-39-2718Pmhdn gap [Moles/Vol]15 mmol/LNormal6 - 16 mEq/L Remisol ChemCalcium [Mass/Vol]7.0 mg/dLInvalid Interpretation Code8.9 - 11.1 mg/dLRemisol ChemComment on above:Result Comment: Critical Result Verified by Repeat Analysis Critical Result S_CA.0 Called to and read back by: BIOMASS FACILITATOR ELI at: 06/13/2023 18:59:55 by:ELI PAYEURChloride [Moles/Vol]100 mmol/IBxu518 - 111 mmol/LRemisol ChemCO2 [Moles/Vol]27 mmol/ITmfdcu16 - 31 mmol/LRemisol Chem Creatinine [Mass/Vol]1.3 mg/dLNormal0.5 - 1.3 mg/dLRemisol YddfcZMX37 mL/min/1.73 f6Jpaaav>=59mL/min/1.73 v8Kyvbrta ChemGlucose [Mass/Vol]219 mg/dL High55 - 199 mg/dLRemisol ChemPotassium [Moles/Vol]2.7 mmol/LInvalid Interpretation Code3.5 - 5.3 mmol/LRemisol ChemComment on above:Result Comment: Critical Result Verified by Repeat Analysis Critical Result S_K:2.7 Called to and read back by: DR. BIOMASS FACILITATOR ELI at: 06/13/2023 18:59:55 by:ELI PAYEURSodium [Moles/Vol]139 mmol/WAcjxjh741 - 145 mmol/LRemisol ChemUrea nitrogen [Mass/Vol]16 mg/dLNormal5 - 21 mg/dLRemisol Chem Urea nitrogen/Creatinine [Mass ratio]12 mg/ztVxwghi39 - 20Remisol ChemCHEMISTRY Ordered By: SYSTEM SYSTEM on 85-20-1114Gcyld gap [Moles/Vol]13 mmol/LNormal6 - 16 mEq/LRemisol ChemCalcium [Mass/Vol]8.6 mg/dLLow8.9 - 11.1 mg/dLRemisol Chem Chloride [Moles/Vol]97 mmol/TCdr730 - 111 mmol/LRemisol ChemCO2 [Moles/Vol]33 mmol/LHigh21 - 31 mmol/LRemisol ChemCreatinine [Mass/Vol]1.5 mg/dLHigh0.5 - 1.3 mg/dLRemisol TcapfSTL40 mL/min/1.73 m2Low>=59mL/min/1.73 v4Hdauvyd ChemGlucose [Mass/Vol]201 mg/mZLcfi84 - 199 mg/dLRemisol ChemPotassium [Moles/Vol]3.3 mmol/L Low3.5 - 5.3 mmol/LRemisol ChemSodium [Moles/Vol]140 mmol/IZguovw519 - 145 mmol/LRemisol ChemUrea nitrogen [Mass/Vol]25 mg/dLHigh5 - 21 mg/dLRemisol Chem Urea nitrogen/Creatinine [Mass ratio]17 mg/onRzdlhj81 - 20Remisol ChemCHEMISTRY Ordered By: SYSTEM SYSTEM on 76-44-8900Suvukcl [Mass/Vol]3.4 g/dLNormal3.3 - 5.0 gm/dLFTMC RemisolAlbumin/Globulin [Mass ratio]0.8 {ratio}Low1.1 - 2.2FTMC RemisolALP [Catalytic activity/Vol]80 [iU]/dJekrme90 - 98 Int._Unit/LFTMC RemisolALT No additional P-5'-P [Catalytic activity/Vol]19 [iU]/dNormal6 - 46 Int._Unit/LFTMC RemisolAnion gap [Moles/Vol]16 mmol/LNormal6 - 16 mEq/LFTMC RemisolAST [Catalytic activity/Vol]19 [iU]/dNormal5 - 43 Int._Unit/LFTMC Remisol Bilirubin [Mass/Vol]1.1 mg/dLNormal0.0 - 1.1 mg/dLFTMC RemisolCalcium [Mass/Vol] 8.6 mg/dLLow8.9 - 11.1 mg/dLFTMC RemisolChloride [Moles/Vol]94 mmol/RLmw314 - 111 mmol/LFTMC RemisolCO2 [Moles/Vol]31 mmol/YSgknkl18 - 31 mmol/LFTMC Remisol Creatinine [Mass/Vol]1.3 mg/dLNormal0.5 [...] [Mass/Vol]7.5 g/dLNormal6.0 - 7.8 gm/dLFTMC RemisolSodium [Moles/Vol]138 mmol/ORuokwl661 - 145 mmol/LFTMC RemisolUrea nitrogen [Mass/Vol] 16 mg/dLNormal5 - 21 mg/dLFTMC RemisolUrea nitrogen/Creatinine [Mass ratio]12 mg/yrQhcrks86 - 20FT RemisolCHEMISTRYOrdered By: Isidro Leonard on 14-48-0444KwF6h (Bld) [Mass fraction]9.6 %High<=5.9%[facility] ChemAutoSSCHEMISTRY Ordered By: SYSTEM SYSTEM on 42-91-5697Fqgqgakv specific Ag [Mass/Vol]6.1 ng/mL High0.1 - 3.5 ng/mLFT RemisolComment on above:Interpretive Data: The concentration of PSA determined by different manufacturers can vary due to di fferences in assay methods and reagent specificity. Values obtained from different assay methods cannot be used interchangeably. The methodology used for this result was chemiluminescence using Values of n's Access [employer] PSA reagent.CHEMISTRYOrdered By: SYSTEM SYSTEM on [id number] [Mass/Vol]3.8 g/dLNormal3.3 - 5.0 gm/dLFTMC RemisolAlbumin/Globulin [Mass ratio]1.1 {ratio} Normal1.1 - 2.2[facility] RemisolALP [Catalytic activity/Vol]95 [iU]/qYxspae02 - 98 Int._Unit/LFTMC RemisolALT No additional P-5'-P [Catalytic activity/Vol]20 [iU]/dNormal6 - 46 Int._Unit/LFTMC RemisolAnion gap [Moles/Vol]15 mmol/LNormal6 - 16 mEq/LFTMC RemisolAST [Catalytic activity/Vol]21 [iU]/dNormal5 - 43 Int._Unit/LFTMC RemisolBilirubin [Mass/Vol]0.8 mg/dLNormal0.0 - 1.1 mg/dLFTMC RemisolCalcium [Mass/Vol]8.6 mg/dLLow8.9 - 11.1 mg/dLFTMC RemisolChloride [Moles/Vol]98 mmol/NVkz918 - 111 mmol/LFTMC RemisolCholesterol [Mass/Vol]162 mg/cBLbiutn947 - 200 mg/dLFTMC RemisolCholesterol in HDL [Mass/Vol]40 mg/dL Invalid Interpretation CodeFTMC RemisolCholesterol in LDL [Mass/Vol]96 mg/dL Normal<=129mg/dLFTMC RemisolCholesterol in VLDL [Mass/Vol]23 mg/dLNormal7 - 40 mg/dLFTMC RemisolCO2 [Moles/Vol]27 mmol/JYgxxpe93 - 31 mmol/LFTMC Remisol Creatinine [Mass/Vol]1.2 mg/dLNormal0.5 - 1.3 mg/dLFTMC RemisolGFR/1.73 sq M.predicted among non-blacks MDRD (S/P/Bld) [Vol rate/Area]66 mL/min/1.73 m2 Normal>=59mL/min/1.73 m2FT Chem SGlobulin (S) [Mass/Vol]3.6 g/dLNormal1.4 - 4.0 gm/dLFTMC RemisolGlucose [Mass/Vol]314 mg/tTVisg39 - 199 mg/dLFTMC Remisol Potassium [Moles/Vol]4.2 mmol/LNormal3.5 - 5.3 mmol/LFTMC RemisolProtein [Mass/Vol]7.4 g/dLNormal6.0 - 7.8 gm/dLFTMC RemisolSodium [Moles/Vol]136 mmol/L Rnjqqn095 - 145 mmol/LFTMC RemisolTriglyceride [Mass/Vol]116 mg/dLNormal <=149mg/dLFTMC RemisolUrea nitrogen [Mass/Vol]15 mg/dLNormal5 - 21 mg/dLFTMC RemisolUrea nitrogen/Creatinine [Mass ratio]12 mg/flBlarbc53 - 20[facility] Remisol CHEMISTRYOrdered By: Isidro Leonard on 22-66-4280Pdshuwi DL <= 20 mg/L (U) [Mass/Vol]35.7 microgram/mLHigh0.0 - 19.0 mcg/mLFTMC RemisolAlbumin Elph (U) [Mass fraction]9.6 mg/dLInvalid Interpretation CodeFTMC RemisolCreatinine (U) [Mass/Vol]43.6 mg/dLInvalid Interpretation CodeFTMC RemisolU Prot/Creat Ratio 220.20 mg/gm CrHigh0.00 - 200.00 mg/gm CrFTMC RemisolCHEMISTRYOrdered By: Noe Betts on 45-88-9280ViH6i (Bld) [Mass fraction]8.4 %High<=5.9%[facility] ChemAutoSS HEMATOLOGYOrdered By: Private Outlet SYSTEM on 45-62-8603Leupxkmjz/100 WBC (Bld)0.6 % Normal0.0 - 2.0 %[facility] HemeAutoSSBasophils/Leukocytes Auto (Bld) [Pure # fraction]0.0 E9/LNormal0.0 - 0.2 E9/LFTMC HemeAutoSSEosinophils/100 WBC (Bld)1.8 %Normal0.0 - 8.0 %[facility] HemeAutoSSEosinophils/Leukocytes Auto (Bld) [Pure # fraction]0.1 E9/LNormal0.0 - 0.5 E9/LFTMC HemeAutoSSLymphocytes/100 WBC (Bld) 19.3 %Qqxvcr18.0 - 50.0 %[facility] HemeAutoSSLymphocytes/Leukocytes Auto (Bld) [Pure # fraction]1.1 E9/LNormal1.0 - 4.0 E9/LFTMC HemeAutoSSMonocytes/100 WBC (Bld) 13.0 %Normal4.0 - 14.0 %[facility] HemeAutoSSMonocytes/Leukocytes Auto (Bld) [Pure # fraction]0.7 E9/LNormal0.2 - 1.0 E9/LFTMC HemeAutoSSNeutrophils/100 WBC (Bld) 65.3 %Uzcgcj70.0 - 75.0 %[facility] HemeAutoSSNeutrophils/Leukocytes Auto (Bld) [Pure # fraction]3.6 E9/LNormal2.0 - 7.5 E9/LFTMC HemeAutoSSHEMATOLOGYOrdered By: Nichol Martinez on 69-95-3756Rojrufygedn distribution width (RBC) [Ratio]12.8 % Ncpdjt32.9 - 14.2 %[facility] HemeAutoSSHematocrit (Bld) [Volume fraction]36.6 %Low 37.7 - 49.0 %[facility] HemeAutoSSHemoglobin (Bld) [Mass/Vol]12.8 g/dLLow13.5 - 17.5 gm/dLFTMC HemeAutoSSMCH (RBC) [Entitic mass]33.7 loLoodyp24.0 - 34.0 pgFOK [facility] [place] HemeAutoSSMCHC (RBC) [Mass/Vol]34.9 g/zFRnsvpg81.4 - 36.0 gm/dLFT HemeAutoSS MCV (RBC) [Entitic vol]96.4 bRHwvplt38.0 - 100.0 f[facility] HemeAutoSSPlatelet mean volume (Bld) [Entitic vol]7.6 fLNormal6.4 - 10.8 fLIN[facility] [place] HemeAutoSSPlatelets (Bld) [#/Vol]284.0 E9/PBpeqqm195.0 - 500.0 E9/LFOK [facility] [place] HemeAutoSSRBC (Bld) [#/Vol] 3.8 E12/LLow4.3 - 5.9 E12/[facility] HemeAutoSSWBC corrected for nucl RBC Auto (Bld) [#/Vol]5.5 E9/LNormal4.0 - 11.0 E9/[facility] HemeAutoSSCBC AUTO DIFFon 07-13-2022 BASO #0.1 103/ulNormal0.0-0.1[facility] HospitalComment on above:Performed By: #### CBC #### [facility] [address] [place] [address] Dr. Pilo JansenBasophils/100 WBC (Bld)1.0 %Normal0.2-2.0[facility] Comment on above:Performed By: #### CBC #### [facility] [address] [place] [address] Dr. Pilo Lincoln #0.1 103/ulNormal0.0-0.7The [facility] HospitalComment on above: Performed By: #### CBC #### [facility] [address] [place] [address] Dr. Pilo Mayfieldosinophils/100 WBC (Bld)2.1 %Normal0.9-7.0[facility] Comment on above:Performed By: #### CBC #### [facility] [address] [place] [address] Dr. Yilan ChangErythrocyte distribution width (RBC) [Ratio]12.0 %Sonngy31.0-15.0 The [facility] HospitalComment on above:Performed By: #### CBC #### [facility] [address] [place] [address] Dr. Pilo JansenHematocrit (Bld) [Volume fraction]40.7 %Critically low42.0-54.0 The [facility] HospitalComment on above:Performed By: #### CBC #### [facility] [address] [place] [address] Dr. Pilo JansenHemoglobin (Bld) [Mass/Vol]13.4 g/dLCritically low14.0-18.0The [facility] HospitalComment on above:Performed By: #### CBC #### [facility] [address] [place] [address] Dr. Pilo Fabian #0.02 10e3/ulNormal0.00-0.03The [facility] HospitalComment on above:Performed By: #### CBC #### [facility] [address] [place] [address] Dr. Pilo Fabian %0.4 %Normal0.0-0.5The [facility] HospitalComment on above: Performed By: #### CBC #### [facility] [address] [place] [address] Dr. Pilo Talamantes #1.4 103/ulNormal1.2-3.8The [facility] HospitalComment on above:Performed By: #### CBC #### [facility] [address] [place] [address] Dr. Pilo Hansenhocytes/100 WBC (Bld)26.1 %Adblbq05.5-60.0The [facility] HospitalComment on above:Performed By: #### CBC #### [facility] [address] [place] [address] Dr. Pilo AguayoUAL DIFF REQNONormalThe [facility] HospitalComment on above: Performed By: #### CBC #### [facility] [address] [place] [address] Dr. Pilo Queen (RBC) [Entitic mass]33.2 npFyijay74.9-34.0The [facility] HospitalComment on above:Performed By: #### CBC #### [facility] [address] [place] [address] Dr. Pilo Gutierrez (RBC) [Mass/Vol]32.9 g/yIMayzsl78.9-35.2The [facility] HospitalComment on above:Performed By: #### CBC #### [facility] [address] [place] [address] Dr. Pilo Gutierrez (RBC) [Entitic vol]100.7 fLCritically high80.0-94.0The [facility] HospitalComment on above:Performed By: #### CBC #### [facility] [address] [place] [address] Dr. Pilo Woods #0.5 103/ulNormal0.3-0.8The [facility] HospitalComment on above:Performed By: #### CBC #### [facility] [address] [place] [address] Dr. Pilo Cortesocytes/100 WBC (Bld)9.6 %Normal1.7-12.0The [facility] Comment on above:Performed By: #### CBC #### [facility] [address] [place] [address] Dr. Pilo Alejandre #3.2 103/ulNormal1.4-6.5The [facility] HospitalComment on above:Performed By: #### CBC #### [facility] [address] [place] [address] Dr. Pilo Michelutrophils/100 WBC (Bld)60.8 %Myoent25.0-75.0The [facility] HospitalComment on above:Performed By: #### CBC #### [facility] [address] [place] [address] Dr. Pilo Pedrazalet mean volume (Bld) [Entitic vol]9.3 fLCritically low 9.5-13.5The [facility] HospitalComment on above:Performed By: #### CBC #### [facility] [address] [address] [address] Pilo JansenPLT204 103/zfEnhpza987-257Jyb [facility] on above: Performed By: #### CBC #### [facility] [address] [address] [address] Pilo JansenRBC4.04 106/ulCritically low4.70-6.10The [facility] HospitalComment on above:Performed By: #### CBC #### [facility] [address] [address] [address] Pilo JansenWBC5.2 103/ulNormal4.0-11.0The [facility] on above: Performed By: #### CBC #### [facility] [address] [place] [address] Dr. Pilo JansenGLYCOHEMOGLOBIN A1Con [id number] RECOMMENDATIONSEE [facility]Com[facility] on above:Result Comment: ADA RECOMMENDED LIMIT 4.0 - 6.0 ADA THERAPEUTIC TARGET < 7.0 ACTION SUGGESTED > 7.0Performed By: #### A1C #### [facility] [address] [place] [address] Dr. Pilo JansenGlucose [Mass/Vol]189 mg/dLNoUniversity Hospitals Geaug[facility] on above:Performed By: #### A1C #### [facility] [address] [place] [address] Dr. Pilo JansenHbA1c (Bld) [Mass fraction]8.2 %Critically high4.5-6.2The [facility] on above:Performed By: #### A1C #### [facility] [address] [address] [address] Pilo JansenLIPID PROFILEon 79-28-2012ZUPH-HDL RATIO NORMSEE [facility]Com[facility] on above:Result Comment: 3.3 - 4.4 LOW RISK 4.4 - 7.1 AVERAGE RISK 7.1 - 11.0 MODERATE RISK >11.0 HIGH RISKPerformed By: #### LIPID, CMP #### [facility] [address] [address] [address] Pilo JansenCholesterol [Mass/Vol]157 mg/dLNormal<=200The [facility] Comment on above:Performed By: #### LIPID, CMP #### [facility] [address] [address] [address] Pilo JansenCholesterol in HDL [Mass/Vol]53 mg/wTRaybcl40-95Wih [facility] HospitalComment on above:Performed By: #### LIPID, CMP #### [facility] [address] [address] [address] Pilo JansenCholesterol in LDL [Mass/Vol]81.8 mg/dLNoUpper Valley Medical CenterComment on above:Performed By: #### LIPID, CMP #### [facility] [address] [address] [address] Pilo Dwyerestercatarino.total/Cholesterol in HDL [Mass ratio]3.0 {ratio} NormalThe [facility] HospitalComment on above:Performed By: #### LIPID, CMP #### [facility] [address] [place] [address] Dr. Pilo Magallanes NORMAL> or = 60 mg/dl - LOW CARDIOVASCULAR RISK <40 mg/dl - HIGH CARDIOVASCULAR RISKMarymount HospitalComment on above:Performed By: #### LIPID, CMP #### [facility] [address] [place] [address] Dr. Pilo Jaime CALC NORMALSEE BELOWNoUpper Valley Medical CenterComment on above:Result Comment: <100 mg/dl OPTIMAL 100 - 129 mg/dl NEAR OR ABOVE OPTIMAL 130 - 159 mg/dl BORDERLINE HIGH 160 - 189 mg/dl HIGH >190 mg/dl VERY HIGH Performed By: #### LIPID, CMP #### [facility] [address] [address] [address] Pilo JansenTriglyceride [Mass/Vol]111 mg/dLNormal<=150The [facility] Comment on above:Performed By: #### LIPID, CMP #### [facility] [address] [place] [address] Dr. Yilan ChangVLDL CALC22.2 mg/dLNormalThe [facility] HospitalComment on above: Performed By: #### LIPID, CMP #### [facility] [address] [place] [address] Dr. Pilo Almanzar 14(COMP METB)on 20-08-0761Kltednb [Mass/Vol]3.9 g/dLNormal 3.4-5.0The [facility] HospitalComment on above:Performed By: #### LIPID, CMP #### [facility] [address] [place] [address] Dr. Pilo JansenAlbumin/Globulin [Mass ratio]1.1 {ratio}NormalThe [facility] HospitalComment on above:Performed By: #### LIPID, CMP #### [facility] [address] [place] [address] Dr. Pilo Medeiros [Catalytic activity/Vol]81 U/UVbzypl33-937Pkn [facility] HospitalComment on above:Performed By: #### LIPID, CMP #### [facility] [address] [place] [address] Dr. Pilo Thompson [Catalytic activity/Vol]28 U/PComaaj00-02Ewu [facility] HospitalComment on above:Performed By: #### LIPID, CMP #### [facility] [address] [place] [address] Dr. Pilo Mercado gap [Moles/Vol]13.6 mmol/LNormalThe [facility] Comment on above:Performed By: #### LIPID, CMP #### [facility] [address] [place] [address] Dr. Pilo Clark [Catalytic activity/Vol]23 U/PAxbqfa85-56Lai [facility] HospitalComment on above:Performed By: #### LIPID, CMP #### [facility] [address] [place] [address] Dr. Pilo JansenBilirubin [Mass/Vol]0.8 mg/dLNormal0.2-1.0The [facility] Comment on above:Performed By: #### LIPID, CMP #### [facility] [address] [place] [address] Dr. Pilo JansenCalcium [Mass/Vol]9.3 mg/dLNormal8.5-10.1The [facility] Comment on above:Performed By: #### LIPID, CMP #### [facility] [address] [address] [address] Pilo JansenChloride [Moles/Vol]101 mmol/XMvkyfk92-824Zpz [facility] Comment on above:Performed By: #### LIPID, CMP #### [facility] [address] [address] [address] Pilo JansenCO2 [Moles/Vol]29.7 mmol/PSqiysd37.0-32.0The [facility] Comment on above:Performed By: #### LIPID, CMP #### [facility] [address] [place] [address] Dr. Pilo JansenCreatinine [Mass/Vol]0.86 mg/dLNormal0.70-1.30The [facility] HospitalComment on above:Performed By: #### LIPID, CMP #### [facility] [address] [place] [address] Dr. Pilo MayfieldGFR-AF TRISTANIAN>60Normal>=60The [facility] HospitalComment on above:Performed By: #### LIPID, CMP #### [facility] [address] [place] [address] Dr. Pilo MayfieldGFR-NON AF TRISTANIAN>60Normal>=60The [facility] HospitalComment on above:Performed By: #### LIPID, CMP #### [facility] [address] [place] [address] Dr. Pilo JansenGlobulin (S) [Mass/Vol]3.7 g/dLNormalThe [facility] HospitalComment on above:Performed By: #### LIPID, CMP #### [facility] [address] [address] [address] Pilo JansenGlucose [Mass/Vol]186 mg/dLCritically czyy62-953Lnz [facility] HospitalComment on above:Performed By: #### LIPID, CMP #### [facility] [address] [place] [address] Dr. Pilo JansenPotassium [Moles/Vol]4.3 mmol/LNormal3.5-5.1The [facility] Comment on above:Performed By: #### LIPID, CMP #### [facility] [address] [address] [address] Pilo JansenProtein [Mass/Vol]7.6 g/dLNormal6.4-8.2The [facility] Comment on above:Performed By: #### LIPID, CMP #### [facility] [address] [address] [address] Pilo JansenSodium [Moles/Vol]140 mmol/VQhasdf432-376Kcz [facility] Comment on above:Performed By: #### LIPID, CMP #### [facility] [address] [address] [address] Pilo JansenUrea nitrogen [Mass/Vol]10.0 mg/dLNormal7.0-18.0The [facility] HospitalComment on above:Performed By: #### LIPID, CMP #### [facility] [address] [address] [address] Pilo Souza nitrogen/Creatinine [Mass ratio]11.6 mg/mgNormalThe [facility] HospitalComment on above:Performed By: #### LIPID, CMP #### [facility] [address] [address] [address] Pilo Jansen Vital Signs Date TimeVital SignValuePerforming PrpaceeqcHlkufnfq00-39-1731 10:20-0500Body nidggk608.26 cmJessica Karma DO Work Phone: [facility]11-12-2025 10:20-0500 Body mass index (BMI) [Ratio]35.4 kg/n3Gczwjei Karma DO Work Phone: [facility]11-12-2025 10:20-0500 Body ccnuvn307.86 kgJessoc Karma DO Work Phone: [facility]11-12-2025 10:20-0500 Diastolic blood hrejhslq32 mm[Hg]Ivania Karma DO Work Phone: [phone] [place], [place] 2217211-12-2025 10:20-0500 Heart fhem663 /minJessica Karma DO Work Phone: [phone] [place], [place] 2217211-12-2025 10:20-0500 Respiratory rate16 /minJessica Karma DO Work Phone: [phone] [place], [place] 2217211-12-2025 10:20-0500 SaO2% (BldA) [Mass fraction]100 %Ivania Karma DO Work Phone: [phone] [place], [place] 2217211-12-2025 10:20-0500 Systolic blood njlewket172 mm[Hg]Ivania Karma DO Work Phone: [phone] [place], [place] 2217210-29-2025 09:43-0400 Body mwaokh311.26 cmJessica Karma DO Work Phone: [phone] [place], [place] 2217210-29-2025 09:43-0400 Body mass index (BMI) [Ratio]35.6 kg/d9Fxjggvd Karma DO Work Phone: [phone] [place], [place] 2217210-29-2025 09:43-0400 Body ufhqakbicow85.9 [degF]Ivania Karma DO Work Phone: [phone] [place], [place] 2217210-29-2025 09:43-0400 Body rfmkwi386.31 kgJessica Karma DO Work Phone: [phone] [place], [place] 2217210-29-2025 09:43-0400 Diastolic blood giazphro79 mm[Hg]Ivania Karma DO Work Phone: [phone] [place], [place] 2217210-29-2025 09:43-0400 Heart jtlk749 /minJessica Karma DO Work Phone: [phone] [place], [place] 2217210-29-2025 09:43-0400 Respiratory rate18 /minJessica Karma DO Work Phone: [phone] [place], [place] 2217210-29-2025 09:43-0400 SaO2% (BldA) [Mass fraction]97 %Ivania Karma DO Work Phone: [phone] [place], [place] 2217210-29-2025 09:43-0400 Systolic blood qqenunyw730 mm[Hg]Ivania Karma DO Work Phone: [phone] [place], [place] 2217210-13-2025 08:13-0400 Body .26 cmJessica Karma DO Work Phone: [phone] [place], [place] 2217210-13-2025 08:13-0400 Body mass index (BMI) [Ratio]35.7 kg/d0Eykdzkc Karma DO Work Phone: [phone] [place], [place] 2217210-13-2025 08:13-0400 Body jejzrt782.76 kgJessica Karma DO Work Phone: [phone] [place], [place] 2217210-13-2025 08:13-0400 Diastolic blood zkexytma78 mm[Hg]Ivania Karma DO Work Phone: [phone] [place], [place] 2217210-13-2025 08:13-0400 Heart cldu355 /minJessica Karma DO Work Phone: [phone] [place], [place] 2217210-13-2025 08:13-0400 Respiratory rate20 /minJessica Karma DO Work Phone: [phone] [place], [place] 2217210-13-2025 08:13-0400 SaO2% (BldA) [Mass fraction]99 %Ivania Karma DO Work Phone: [phone] [place], [place] 2217210-13-2025 08:13-0400 Systolic blood bofbyyjm041 mm[Hg]Ivania Karma DO Work Phone: [phone] [place], [place] 2217203-11-2025 14:01-0400 Body .3 cmMasrinath WORLEY Work Phone: [facility] HospitalJnlofpwrgz05-37-2289 14:01-0400Body mass index (BMI) [Ratio]37.36 kg/b4Pgrnhezsrinath WORLEY Work Phone: [facility] HospitalTdxwrxvaug29-81-5640 14:01-0400Body smpvjo360.76 kgMasrinath WORLEY Work Phone: [facility] HospitalYudvwnxyfx37-13-9344 08:53-0400Blood Pressure LocationMikhradha [employer] [facility]08-09-2024 08:53-0400 Diastolic blood rccxcsve96 mm[Hg]Javier Kirnus [address] [place], [place] 3296608-09-2024 08:53-0400Heart rate79 /minMiLikeBetter.comail [employer] [address] [place], [place] 3296608-09-2024 08:53-0400 Respiratory rate18 /minMiLikeBetter.comail [employer] [address] [place], [place] 3296608-09-2024 08:53-3933EpV9% (BldA) [Mass fraction]99 %Javier [employer] [facility]08-09-2024 08:53-0400 Systolic blood yrujjvgn336 mm[Hg]Javier Kirnus [facility]08-06-2024 08:19-0400Blood Pressure LocationLinusFloDesign [employer] [facility]08-06-2024 08:19-0400Diastolic blood aglaelri27 mm[Hg][employer] [facility]08-06-2024 08:19-0400Heart rate94 /minTranz [facility]08-06-2024 08:19-0400Systolic blood wzkwiedw170 mm[Hg][employer] [facility]07-26-2024 14:00-0400Hourly RoundingAlexander Marshall [address] [place], [place] 7585807-26-2024 14:00-0400 Promise to ReturnAlexander Marshall [address] [place], [place] 2121907-26-2024 13:00-0400 Hourly RoundingAlexander Marshall [address] [place], [place] 2121907-26-2024 13:00-0400 Promise to ReturnAlexander Marshall [address] [place], [place] 2121907-26-2024 12:34-0400 Diastolic blood omvmqxbw761 mm[Hg]Artemio Leroycker [address] [place], [place] 2121907-26-2024 12:34-0400 Systolic blood zjzrisae862 mm[Hg]Artemio Leroycker [address] [place], [place] 2121907-26-2024 12:00-0400 Hourly RoundingAlexander Marshall [address] [place], [place] 2121907-26-2024 12:00-0400 Promise to ReturnAlexander Marshall [address] [place], [place] 2121907-26-2024 11:50-0400Heart vzlg672 /minAlexander Marshall [address] [place], [place] 2121907-26-2024 11:50-6077UbO8% (BldA) [Mass fraction]98 %Artemio Leroycker [address] [place], [place] 7585807-26-2024 11:45-0400Body vmzxwynzuxc36.7 [degF]Artemio Leroycker [address] [place], [place] 2121907-26-2024 11:45-0400 Diastolic blood hqeuqwvt854 mm[Hg]Artemio Olivares [address] [place], [place] 2121907-26-2024 11:45-0400Mean blood epiavpib807 mm[Hg]Artemio Olivares [address] [place], [place] 2121907-26-2024 11:45-0400 Systolic blood ukpllwex352 mm[Hg]Artemio Olivares [address] [place], [place] 2121907-26-2024 08:00-0400Blood Pressure LocationAlexanddiego Marshall [address] [place], [place] 2121907-26-2024 08:00-0400Body htblwyrctjs78.6 [degF]Artemio Olivares [address] [place], [place] 2121907-26-2024 08:00-0400 Diastolic blood wrhljvny46 mm[Hg]Artemio Olivares [address] [place], [place] 2121907-26-2024 08:00-0400Heart xrli145 /minAlexanddiego Marshall [address] [place], [place] 2121907-26-2024 08:00-0400 Systolic blood dwzmsovv893 mm[Hg]Artemio Olivares [address] [place], [place] 2121907-26-2024 04:00-0400Heart rate74 /minAlexander Marshall [address] [place], [place] 2121907-26-2024 03:39-0400Heart rate75 /minAlexanddiego Marshall [address] [place], [place] 2121907-26-2024 03:39-6831OsX2% (BldA) [Mass fraction]97 %Artemio Olivares [address] [place], [place] 2121907-26-2024 03:39-0400Body pgimqtkymbm02.52 [degF]Artemio Leroycker [address]07-26-2024 03:39-0400Mean blood mnexskwd115 mm[Hg]Artemio Leroycker [address]07-25-2024 21:20-0400Body hpksusxqyus48.16 [degF]Artemio Olivares [address] [place], [place] 2121907-25-2024 21:18-0400Mean blood nnjbgegu390 mm[Hg]Artemio Olivares [address] [place], [place] 2121907-25-2024 20:00-0400Mean blood npavkgfu757 mm[Hg]Atremio Olivares [address] [place], [place] 2121907-25-2024 16:57-0400Blood Pressure LocationAlexajonesdiego Marshall [address] [place], [place] 2121907-25-2024 16:57-0400Body qunruzstdzp81.42 [degF]Artemio Olivares [address] [place], [place] 2121907-25-2024 16:00-0400Mean blood udfobhbp821 mm[Hg]Artemio Olivares [address] [place], [place] 2121907-25-2024 16:00-0400 Respiratory rate20 /minAlexander Marshall [address] [place], [place] 2121907-25-2024 15:00-0400Mean blood mm[Hg]Artemio Olivares [address] [place], [place] 2121907-25-2024 15:00-0400 Respiratory rate14 /minAlexander Marshall [address] [place], [place] 7585807-25-2024 14:07-0400 Respiratory rate23 /minAlexander Marshall [address] [place], [place] 2121907-25-2024 13:50-0400Body cclijorsbsf51.88 [degF]Artemio Olivares [address] [place], [place] 2121907-25-2024 13:50-0400 Respiratory rate18 /minAlexander Marshall [facility]05-15-2024 08:26-0400 Diastolic blood qjuaebiu74 mm[Hg]Jacinto Ramirez [facility]05-15-2024 08:26-0400Mean blood ncugcfqm139 mm[Hg]Jacinto Ramirez [facility]05-15-2024 08:26-0400 Systolic blood fennbtof398 mm[Hg]Jacinto Ramirez [facility]05-15-2024 08:12-0400Blood Pressure LocationJacinto Ramirez [facility]05-15-2024 08:12-0400 Diastolic blood whiiollf12 mm[Hg]Jacinto Ramirez [facility]05-15-2024 08:12-0400Heart rate94 /minJacinto Ramirez [facility]05-15-2024 08:12-8298GeP8% (BldA) [Mass fraction]98 %Jacinto Ramirez [facility]05-15-2024 08:12-0400 Systolic blood kizsdqbq855 mm[Hg]Jacinto Ramirez [facility]04-18-2024 12:35-0400Blood Pressure LocationBryant TAO [facility]04-18-2024 12:35-0400Body gulelcoicze01.16 [degF]Bryant TAO [facility]04-18-2024 12:35-0400Diastolic blood yofzvpla20 mm[Hg]Bryant TAO [facility] [place] [address]-18-2024 12:35-0400Heart rate84 /minBryant TAO [facility]04-18-2024 12:35-0400Systolic blood tgyvppyl738 mm[Hg]Bryant TAO [facility]04-05-2024 14:25-0400Diastolic blood qosdmecd14 mm[Hg]MD Nancy Grace Work Phone: 1(853)670-[address] [place], [place] 0764404-05-2024 14:25-0400 Heart rate85 /minMD Nancy Grace Work Phone: 1(248)981-[address] [place], [place] 0764404-05-2024 14:25-0400 Respiratory rate16 /minMD Nancy Grace Work Phone: 1(373)420-[address] [place], [place] 0764404-05-2024 14:25-0400 SaO2% (BldA) [Mass fraction]99 %MD Nancy Grace Work Phone: 1(080)042-[address] [place], [place] 0764404-05-2024 14:25-0400 Systolic blood qjwtjimq951 mm[Hg]MD Nancy Grace Work Phone: 1(633)387-[address] [place], [place] 0764404-05-2024 13:40-0400 Inhaled oxygen flow rate8 L/minMD Nancy Grace Work Phone: 1(341)399-[address] [place], [place] 0764404-05-2024 12:40-0400 Body .26 cmMD Nancy Grace Work Phone: 6(162)217-[address] [place], [place] 0764404-05-2024 12:40-0400 Body mass index (BMI) [Ratio]34.1 kg/m2MD Nancy Grace Work Phone: 1(469)245-[address] [place], [place] 0764404-05-2024 12:40-0400 Body .77 kgMD Nancy Grace Work Phone: 9(074)888-[address] [place], [place] 0764404-05-2024 11:49-0400 Body ujvuwgapthe43.8 [degF]MD Nancy Grace Work Phone: 1(140)229-[address] [place], [place] 0764403-28-2024 11:42-0400 Diastolic blood ajwuqbpt96 mm[Hg]Bryant TAO [facility]03-28-2024 11:42-0400 Systolic blood mm[Hg]Bryant TAO [facility]03-28-2024 11:40-0400 Diastolic blood ntukjrfi60 mm[Hg]Bryant TAO [facility]03-28-2024 11:40-0400 Systolic blood thuvflri790 mm[Hg]Bryant TAO [facility]03-28-2024 11:08-0400 Diastolic blood jllskqri213 mm[Hg]Bryant TAO [facility]03-28-2024 11:08-0400 Systolic blood womzinup185 mm[Hg]Bryant TAO [facility]03-28-2024 10:50-0400Heart rate96 /minBryant TAO [facility]03-28-2024 10:23-0400Blood Pressure LocationBryant TAO [facility]03-28-2024 10:23-0400Heart lmja856 /minBryant TAO [facility]03-28-2024 10:23-0400Mean blood mm[Hg]Bryant TAO [facility]03-28-2024 10:22-0400Heart hkgd214 /minBryant TAO [facility]03-28-2024 10:22-1717TfT4% (BldA) [Mass fraction]98 %Bryant TAO [facility]03-28-2024 10:22-0400Blood Pressure LocationGreggreg COOK [facility]03-28-2024 10:22-0400Mean blood zujogfhe407 mm[Hg]Bryant TAO [facility]03-28-2024 10:21-0400 Respiratory rate20 /minBryant TAO [facility]03-28-2024 10:21-0400Body xppwondzdvj12.7 [degF]Bryant TAO [facility]03-15-2024 11:59-0400 Diastolic blood nlkmtste28 mm[Hg]Troy Warrenguilherme [facility]03-15-2024 11:59-0400Mean blood zrokhmcq247 mm[Hg]Troy Warrenguilherme [facility]03-15-2024 11:59-0400 Systolic blood gklipegj317 mm[Hg]Troy Warrenguilherme [facility]03-15-2024 11:52-0400 Diastolic blood ftuvgkod128 mm[Hg]Troy Warrenguilherme [facility]03-15-2024 11:52-0400Heart tgzk804 /minNavinfani Brianaguilherme [facility]03-15-2024 11:52-4445YqT6% (BldA) [Mass fraction]97 %Troy Warrenguilherme [facility]03-15-2024 11:52-0400 Systolic blood shcaeoqb021 mm[Hg]Troy Warrenguilherme [facility]03-07-2024 09:41-0500 Diastolic blood mgzznepm78 mm[Hg]Bryant TAO [facility]03-07-2024 09:41-0500Heart rate84 /minBryant TAO [facility]03-07-2024 09:41-0500Mean blood zaaagtwe498 mm[Hg]Bryant TAO [facility]03-07-2024 09:41-0500 Systolic blood kuirdhao617 mm[Hg]Bryant TAO [facility]03-07-2024 09:41-0500Heart rate88 /minBryant TAO [facility]03-07-2024 09:41-6899KdW4% (BldA) [Mass fraction]99 %Bryant TAO [facility]03-07-2024 09:40-0500 Diastolic blood iiyrtvoy73 mm[Hg]Bryant TAO [facility]03-07-2024 09:40-0500Mean blood jgeylakg003 mm[Hg]Bryant TAO [facility]03-07-2024 09:40-0500 Systolic blood fhmuvatk590 mm[Hg]Bryant TAO [facility]03-07-2024 09:40-0500 Respiratory rate20 /minBryant TAO [facility]02-21-2024 11:03-0500Blood Pressure LocationJENNIFER MINDI [facility]02-21-2024 11:03-0500Diastolic blood ucznqzld05 mm[Hg]RAMANDEEP MINDI [facility]02-21-2024 11:03-0500Heart rate84 /minJENNIFER MINDI [facility]02-21-2024 11:03-0500Systolic blood mm[Hg]RAMANDEEP PORTER [facility]02-15-2024 10:06-0500Body .26 cmMD Nancy Grace Work Phone: [facility]02-15-2024 10:06-0500 Body zsxiav051.04 kgMD Nancy Grace Work Phone: [facility]02-12-2024 06:45-0500 Body dehfpg964.26 cmMD Nancy Grace Work Phone: [facility]02-12-2024 06:45-0500 Body xghapj687.04 kgMD Nancy Grace Work Phone: [facility]02-09-2024 13:58-0500 Diastolic blood prnukgad59 mm[Hg]Troy Coulter [facility]02-09-2024 13:58-0500Heart rate99 /minRyan Yfn [facility]02-09-2024 13:58-7140TwG4% (BldA) [Mass fraction]98 %Troy Coulter [facility]02-09-2024 13:58-0500 Systolic blood mm[Hg]Troy Coulter [facility]12-11-2023 07:57-0500 Diastolic blood pcnyblhd99 mm[Hg]Nancy Grace [facility]12-11-2023 07:57-0500Mean blood atgarnmi362 mm[Hg]Nancy Grace [facility]12-11-2023 07:57-0500 Systolic blood evpdnexx095 mm[Hg]Nancy Grace [facility] Encounters Encounter DateEncounter TypeCare ProviderFacilityStart: 80-26-6571hoijnztauo Nancy GraceFacility:[facility] BellevueStart: 81-35-3668qnxkxxpcakHedtnld P COOK Facility:EU [place]Start: 04-17-2025 End: 47-47-0376vpvcgzshfgBgwoswf Karma DO Work Phone: [phone]-Admlhmeci Health Ne[facility] SandStart: 04-17-2025 End: 47-75-9315Qzcbgyk encounter procedureFernando Dumont MD-[facility] Work Phone: Start: 71-20-9953buubgkhgpyVRJ MARINO GRACEHMANN Facility:[facility] [place]vueStart: 04-03-2025 End: 12-48-3073Iulqmegb ReferredClara Rivera APRN-Lab [facility] Work Phone: Start: 04-03-2025 End: 38-83-9273kryuqyqjsxDrdfueh Karma DO Work Phone: -[facility] ClydeStart: 04-03-2025 End: 93-58-0752Bqvbubw encounter procedureClara Rivera IRONER HAND-[facility] [place] Work Phone: Start: 04-21-7912ggcildxkfaSukreip P COOKFacility:EU evueStart: 88-65-5661Opg-patient / Non-visitJessica Karma DO-[facility] Work Phone: Start: 03-19-2025 End: 12-14-9370diynzeqjesTuiolin P COOKFacility:EU [place]inneyStart: 03-19-2025 End: 66-30-1235Sworyro encounter procedureBryant TAO [facility] Start: 03-18-2025 End: 50-10-6946chlzudffsbBopwfty Karma DO Work Phone: [facility] Work Phone: Start: 03-18-2025 End: 92-30-0492Hzhlzkj encounter procedureJekierra Karma DO-[facility] [place] Work Phone: Start: 03-04-2025 End: 15-39-0822dvpyamwgypWZTCKY A LEHMANNFacility:FTMCStart: 01-29-2025 End: 55-56-5762mtigmdqzvuNGXFPK A LEHMANNFacility:FTMCStart: 01-29-2025 End: 96-50-2770ngedclsobkIPMPCY A LEHMANNFacility:FT FM BellevueStart: 01-08-2025 End: 26-20-4292iuyfpleawpWHJ MARINO A LEHMANNFacility:FT FM BellevueStart: 11-14-2024 End: 28-94-3140Bcq Drop offSHELLY A SHIRA [facility] Start: 11-14-2024 End: 09-52-6437ecserifxotMUGGKM A LEHMANNFacility:FTMCStart: 10-08-2024 ambulatorySHELLY LEHMANNFacility:FM WillardStart: 10-08-2024 End: 82-45-8253Obq Drop Erin Grace [facility] Start: 10-08-2024 End: 63-99-6425vzopfgzynrFA Nancy GraceFacility:FTMCStart: 09-25-2024 End: 28-15-9343Zwbpgo flowsKaroline WORLEY Work Phone: noms FB ORTHOPAEDICSStart: 09-25-2024 End: 79-59-4111Vhsvpz Cristhian WORLEY Work Phone: NOEI FB ORTHOPAEDICSStart: 09-25-2024 End: 63-37-8421Nvumlw follow up visit related to original Oj WORLEY Work Phone: NOMS FB ORTHOPAEDICSComment on above:S/P carpal tunnel release (Primary Dx)Start: 09-25-2024 End: 26-88-9243czvabgzgaoSHBZGNO J MEYERNot AvailableStart: 09-24-2024 End: 93-99-8942Gqi Drop offJENNIFER E MINDI [facility] Start: 09-24-2024 End: 59-50-4518ahaxsyzaoqFzmqhxf P COOKFacility:EU BellevueStart: 09-11-2024 End: 81-71-9547Jmufso Cristhian WORLEY Work Phone: NODU FB ORTHOPAEDICSStart: 09-11-2024 End: 44-79-0750Pcmnnp Cristhian WORLEY Work Phone: noms FB ORTHOPAEDICSStart: 09-11-2024 End: 34-11-7168Ifpvpa follow up visit related to original Oj WORLEY Work Phone: NOEF FB ORTHOPAEDICSComment on above:S/P carpal tunnel release (Primary Dx)Start: 09-11-2024 End: 89-34-1645qyhrbhgiccOPBYLFD J MEYERNot AvailableStart: 09-03-2024 End: 78-30-8231dixpvfrypzKJXJELIL E PERRYFacility:EU BellevueStart: 08-28-2024 End: 36-48-4808Tjcmgnjfu encounterJrMalgorzata Dillon DO Work Phone: noms SWS ORTHOStart: 08-22-2024 End: 34-51-9244Uxg Drop Erin Grace [facility] Start: 08-22-2024 End: 70-87-3958xoqnidirzrZdtcza E. RossFacility:FT FM BellevueStart: 08-21-2024 End: 67-85-1265jpzfrpsuuzIhhtjv X OrzechFacility:EU [place]kyStart: 08-17-2024 End: 39-65-8846Vxx Drop offSbrian Grace [facility] Start: 08-17-2024 End: 56-61-4234mkuqhjsjyuIA Nancy GraceFacility:FT FM BellevueStart: 08-14-2024 End: 75-89-0550lrpcwvnelaLAVVHLF J MEYERSelect Medical Specialty Hospital [facility] Canton HospitalStart: 07-73-4174Owtrqfhel for other preprocedural examinationMATTJUSTIN SPARKSRegency Hospital Cleveland Westtart: 08-14-2024 End: 65-86-0555Fuhdwho encounter procedureMasrinath WORLEY Work Phone: NOKX FB ORTHOPAEDICSComment on above:Preop examination Start: 08-14-2024 End: 20-33-1567Jrmcjhwofpvmi examination doneMasrinath WORLEY Work Phone: NOMS HealthcareStart: 08-14-2024 End: 54-10-4570Ymaaal flowsheetMasrinath WORLEY Work Phone: NOQL FB ORTHOPAEDICSStart: 08-14-2024 End: 94-72-8807Rxyycc flowsheetChloe WORLEY Work Phone: noms FB ORTHOPAEDICSStart: 08-14-2024 End: 27-85-2786Nexolmwz Result EncounterChloe WORLEY Work Phone: NOFS External Department UnsolicitedStart: 08-14-2024 End: 49-34-7727kjorzcbukcLJLEJGB J MEYERNot AvailableStart: 08-09-2024 End: 33-50-5341Hcrzws OnlyChloe WORLEY Work Phone: [phone]-TLTY ATLASComment on above:Encounter for other preprocedural examinationStart: 08-09-2024 End: 20-86-6491Jpsmgou encounter statusMasrinath WORLEY Work Phone: [facility] SystemStart: 07-24-2024 End: 62-21-2892qotiootuddXybwcr X OrzechFacility:EU [place]Start: 07-24-2024 End: 53-16-4312Cfpnbeo encounter procedureAurora X Orzech [facility] [place] Start: 07-18-2024 End: 01-03-5376Nubsys flowsheetJr. Lauren Dillon DO Work Phone: NOCD SWS ORTHOStart: 07-18-2024 End: 73-46-4479Gxffpx flowsheetJr. Lauren Dillon DO Work Phone: noms SWS ORTHOStart: 07-18-2024 End: 16-62-2320Dyppgx outpatient visit 25 minutesJr. Lauren Dillon DO Work Phone: noms SWS ORTHOComment on above:Carpal tunnel syndrome of right wrist (Primary Dx); Pain of right handStart: 07-18-2024 End: 96-40-5037esevzvvhwqPPMalgorzata, LAUREN DILLONNot AvailableStart: 07-16-2024 End: 35-84-4352Efs Drop offSbrian Grace [facility] Start: 07-16-2024 End: 86-45-8913xseudlsthiYgwjms E. RossFacility:FT FM BellevueStart: 07-09-2024 End: 48-18-0986Nfn Drop offSbrian Grace [facility] Start: 07-09-2024 End: 97-18-1932cklndckyfwVyptno E. RossFacility:FTMCStart: 05-22-2024 End: 64-68-0962Rzoaie flowsheetChristopher Shyam DO Work Phone: noms NE NEUROStart: 05-22-2024 End: 24-25-3436Qqsnkw flowsheetChristopher Shyam DO Work Phone: noms NE NEUROStart: 05-22-2024 End: 59-04-4295Wcoxbgw encounter procedureChristopher Shyam DO Work Phone: noms NE NEUROComment on above:Carpal tunnel syndrome on both sides (Primary Dx); PolyneuropathyStart: 05-22-2024 End: 71-78-4204eajohgafcnESXIXWCELLT HASSETTNot AvailableStart: 05-18-2024 End: 91-31-7503tumlckuzqlFFW MARINO ERICANNFacility:FT FM BellevueStart: 02-22-2024 End: 06-48-5554sqwprciaebLools AkkinaFacility:FTMCStart: 02-22-2024 End: 27-95-5814Mzjvblb encounter procedureSunil Berenicea [facility] Start: 01-30-2024 End: 34-72-0943Zms Drop Erin Grace [facility] Start: 01-30-2024 End: 46-64-2217nibsoiehglOipteg E. RossFacility:FT FM BellevueStart: 01-13-2024 End: 50-80-7227bumglzdorxDEHD NONEFacility:FTMCStart: 01-13-2024 End: 30-68-9460Sgswnbq encounter procedureMiletha Goins [facility] Start: 01-11-2024 End: 82-33-0349Gaf Drop offSbrian Grace [facility] Start: 01-11-2024 End: 36-55-2276fsipxalwgmHdctwm E. RossFacility:FTMCStart: 01-10-2024 End: 18-07-6787chuujasnacMkpmblt P COOKFacility:EU [place]kyStart: 01-10-2024 End: 07-33-6836Xdqhqdy encounter procedureLinusgreg Jaspreet TAO [facility] Start: 01-05-2024 End: 36-47-2108sbgexqmkopCM Nancy GraceFacility:FT BellevueStart: 01-02-2024 End: 68-22-4290twewqratpkYehzay E. RossFacility:CD:[id number]: 12-29-2023 End: 06-45-1603Rctavaecup and management of inpatientSunil AkkinaFacility:[facility] Start: 65-34-9329Nflurhfkq department patient Saadia NicoleMalgorzata CartagenaFacility:[facility] Start: 12-29-2023 End: 75-28-9618Vsfbpfvigw and management of inpatientAlexasalena Leroycker [facility] Start: 12-27-2023 End: 41-86-9489Kur Drop Erin Grace [facility] Start: 12-27-2023 End: 43-83-8900ebyvhmqqrfAzkntj E. RossFacility:FT FM BellevueStart: 12-22-2023 End: 97-35-1030Ekt Drop offSHELLY Luke KEARNS [facility] Start: 12-22-2023 End: 38-01-3675bvpsvoffcgQRGUPU A LEHMANNFacility:FTMCStart: 11-28-2023 End: 86-28-7445dsxblzkmuaYznleru P COOKFacility:FTMCStart: 11-28-2023 End: 67-96-7619Wenfrnm encounter procedureGregory P COOK [facility] Start: 10-19-2023 End: 34-08-9767rkjjymrlxiUybnrm A SteinFacility:FTMCStart: 10-19-2023 End: 45-66-0294Eneflkn encounter procedureThomas A Ramirez [facility] Start: 09-22-2023 End: 09-12-8693roeksspsbcQktnetw P COOKFacility:EU [place]kyStart: 09-22-2023 End: 34-73-7281Waatrno encounter procedureGregory P EMMY [facility] [place] Start: 09-09-2023 End: 79-61-1743Tskjitrqn to same day surgery [facility] Nancy Grace Work Phone: [facility] CenterStart: 09-09-2023 End: 79-73-8940qdwcnhohzsZL Samuel E Ross Work Phone: [facility] Work Phone: Start: 09-09-2023 End: 09-56-6740hrmrymdvdwSygaqez P COOKFacility:CD:[id number]: 09-01-2023 End: 04-41-5006Nhkoxtsqu to same day surgery centerGregory P COOK [facility] Start: 09-01-2023 End: 26-97-9606kpwfqxparaCpzklrh P COOKFacility:FTMCStart: 08-19-2023 End: 71-67-3060iocomrvnbnDNZL NONEFacility:FTMCStart: 08-19-2023 End: 50-38-0157Xwkprun encounter procedureTroy Coulter [facility] Start: 08-15-2023 End: 66-08-9155Kta Drop offSbrian Grace [facility] Start: 08-15-2023 End: 98-96-4264tktmrekwaiVrruai E. RossFacility:FTMCStart: 08-11-2023 End: 77-35-7432Roeacgc encounter procedureLinusgreg TAO [facility] Start: 08-05-2023 End: 59-61-8196Wpevaoj encounter procedureTroy Coulter [facility] Start: 08-02-2023 End: 85-08-6338Rcdhfjw encounter procedureSbrian Grace [facility] Start: 07-27-2023 End: 90-76-3587Sashrrq encounter procedureRAMANDEEP JUNIORRY [facility] [place] Start: 07-21-2023 End: 42-93-2804hvovyoupgzQO Samuel E Ross Work Phone: [facility] Work Phone: Start: 07-21-2023 End: 88-76-9075Kkmrieu encounter Cody Grace Work Phone: [facility] [place] Work Phone: start: 07-18-2023 End: 64-20-7531yriojavcpdON Samuel E Ross Work Phone: [facility] Work Phone: Start: 07-18-2023 End: 78-93-6712Eubvhgb encounter procedureMD Nancy Grace Work Phone: [facility] [place] Work Phone: Start: 07-15-2023 End: 82-59-0076Wclszfe encounter Hortencia Coulter [facility] Start: 06-28-2023 End: 12-54-8496Oau Drop offSbrian Grace [facility] Start: 06-23-2023 End: 45-96-0582Pezuuhu encounter procedureManolo ALLEN [facility] start: 06-22-2023 End: 06-43-5887Yjtreoq encounter procedureJENNIFER E MINDI [facility] start: 06-21-2023 End: 67-66-7612Arpkzik encounter procedureJENNIFER E MINDI [facility] start: 06-13-2023 End: 25-23-3518Xxw Drop offSbrian Grace [facility] Start: 05-27-2023 End: 15-65-8547Vvy Drop offChristy Mulligan [facility] Start: 05-26-2023 End: 67-58-7065Ith Drop offSbrian Grace [facility] Start: 05-18-2023 End: 53-25-0473Iun-admission assessmentSbrian Grace [facility] Start: 05-16-2023 End: 75-62-9490Ilj Drop offSbrian Grace [facility] Start: 04-04-2023 End: 56-06-3761Tvo Drop offJodi L Ese [facility] Start: 04-04-2023 End: 67-34-3149Rwt Drop offJodi L Ese [facility] Start: 01-20-2023 End: 38-15-7893Vhz Drop offSbrian Grace [facility] Start: 07-13-2022 End: 63-39-2095tqoujpjcekFS TYRESE MCGRATHFacility:H1 Procedures DateProcedureProcedure DetailPerforming ClinicianStart: 34-23-7304Bggho culture Ivania Vale DO Work Phone: Start: 08-90-8087Zbyjdmdtxxgly of median nerveSMICHAEL KEARNS Start: 76-41-1282Weoqrymknlacz of median nerveSbrian Grace Start: 63-96-9183Fpagf metabolic panel calcium total Chloe WORLEY Work Phone: Start: 05-22-2024 End: 27-36-8596Lvwsjr emg ea extremty w/paraspinl area completeChristopher Shyam DO Work Phone: Start: 01-91-4694JD (TRUS) Prostate Biopsy w/Ultrasound (Not Applicable)MD Nancy Grace Work Phone: Start: 33-77-3951EF prostate wo/w conMD Nancy Grace Work Phone: Start: 31-57-2012DZB screeningDR TYRESE MCGRATHComment on above:Performed By: #### PSAD #### [facility] [address] [place] [address] Dr. Pilo RutherfordNancy Grace Comment on above:rightArthroscopyBryant [...] arthrodesisGreggreg TAO Plan of Treatment DateCare ActivityDetailAuthorStart: 63-18-6343Ttlbf cultureWadsworth-Rittman Hospitaltart: 59-55-9322Luguzger identified in Urine by CultureUrine [facility] Charles Hospitaltart: 36-94-5286Rbifdvk referral [facility] Work Phone: Start: 09-25-2024 End: 66-98-3606Mqyxzyy encounter procedureNOMS FB ORTHOPAEDICSComment on above: S/P carpal tunnel release (Primary Dx)Start: 09-11-2024 End: 11-66-5364Fgjlzsr encounter procedureNOMS FB ORTHOPAEDICSComment on above: S/P carpal tunnel release (Primary Dx)Start: 08-14-2024 End: 95-95-1183Kxlfwpl encounter procedureNOMS FB ORTHOPAEDICSComment on above: Preop examinationStart: 08-09-2024 End: 44-35-3510Ppqab metabolic 1998 panel - Serum or PlasmaBasic metabolic panel Lab Routine Preop examination Expected: 08/09/2024 (Approximate), Expires: 11/2025[facility] Work Phone: Comment on above:Expected: 08/09/2024 (Approximate), Expires: 08/09/2025Start: 08-09-2024 End: 32-24-5624Krsna metabolic 2000 panel - Serum or PlasmaBasic Metabolic Panel Lab Routine Encounter for other preprocedural examination Expected: 08/09/2024, Expires: 08/09/2025[facility] Work Phone: Comment on above:Expected: 08/09/2024, Expires: 08/09/2025Start: 07-18-2024 End: 97-86-8667Essphse encounter xwhwynrah59/12/2025 8:30 AM EST Office Visit [facility] [address] [place] [address] Jr. Lauren Dillon, DO [address] [place] [address] ArrivedNOMS SHEPHRED ORTHOComment on above: ArrivedStart: 05-22-2024 End: 51-23-1868Ntsisyn encounter /17/2024 8:30 AM EST Procedure Visit [facility] [address] [place] [id number] Carlos Howe DO [address] [place] [address] ArrivedNOMS NE NEUROComment on above:ArrivedStart: 01-04-3244Jxsjvcdjk for malignant neoplasm of colonNOMS HealthcareStart: 10-35-3903Qhgmxyyui vaccinationInfluenza VaccineDuke Regional Hospitaltart: 09-09-2023 End: 03-50-6342LlqjxuvwcWadsworth-Rittman Hospitaltart: 68-10-6361Gsiyqbdkjgwr Vaccine: 65+ Years (2 of 2 - PPSV23 or PCV20)Pneumococcal Vaccine: 65+ Years (2 of 2 - PPSV23 or PCV20)[facility] HealthcareStart: 83-67-8351Fikenxjwivro Vaccine: 65+ Years (2 of 2 - PPSV23)Pneumococcal Vaccine: 65+ Years (2 of 2 - PPSV23)[facility] HealthcareStart: 30-44-7106Jcjo Risk ScreeningFall Risk ScreeningDuke Regional Hospitaltart: 95-91-7458Gcjrrxnhomnboz of varicella zoster vaccineZoster (Shingles) Vaccine (1 of 2)[facility] SystemStart: 12-13-2329TYeS,Tdap and Td Vaccines (1 - Tdap)DTaP,Tdap and Td Vaccines (1 - Tdap)[facility] SystemStart: 24-53-3764Guvpl BMI ScreeningAdult BMI ScreeningMercer County Community Hospital SystemStart: 35-39-6785Njszhzbbsv ScreeningDepression ScreeningMercer County Community Hospital SystemStart: 82-38-1536Wyiwiur ScreeningTobacco ScreeningProtestant Deaconess Hospital Start: 97-33-9051Opiugypvt for malignant neoplasm of colonNOMS Healthcare Comprehensive metabolic 1999 panel - Serum or [facility]Patient referralOhio [facility] Work Phone: Renal function 1999 panel - Serum or [facility] HospitalUrine cultureMarietta Osteopathic ClinicUS Kidney - bilateralMills-[facility] Immunizations Immunization DateImmunizationNotesCare DzyiohegSpjtebju53-66-4016yolpcyrou virus vaccine, unspecified formulationSbrian Grace [phone]-OxpstMiami Valley Hospital 92-19-3416AYAK-CoV-2 mRNA (tozinameran 5y-11y) vaccineSbrian Grace [phone]-NtnbrMiami Valley Hospital Comment on above:Result Comment: -64-5962fbmdwnglg virus vaccine, unspecified formulationSbrian Grace [phone]-EfjubMiami Valley Hospital 10-06-7499zcngrvqeg virus vaccine, unspecified formulationSbrian Grace [phone]-LrjvdBerger Hospital10-31-2022 SARS-CoV-2 (COVID-19) mRNAMUL.ORD!v91602Avbjus Ruiz 012-2425Sqprtn-ScapgBerger Hospital09-26-2021 influenza virus vaccine, unspecified formulationSbrian Grace [phone]-GydtcBerger Hospital09-26-2021 SARS-CoV-2 (COVID-19) mRNA BNT-162b2 vaJani Grace [phone]-JgolbBerger HospitalComment on above: Result Comment: 2023-01-13: [id number]-MyS-9 (COVID-19) mRNA BNT-162b2 vaxSbrian Grace [phone]-JngoxBerger Hospital02-12-2021 SARS-CoV-2 (COVID-19) mRNA BNT-162b2 Blaynebrian Grace [phone]-UcgmfBerger Hospital10-04-2020 influenza virus vaccine, unspecified formulationSnicolahalima Grace [phone]-DfvorBerger Hospital10-04-2020 pneumococcal conjugate vaccine, 13 valMedhat Grace [phone]-ShhnyBerger HospitalNEGATED: Highlighted row has not occurred!48-51-7579cncmdfnqc virus vaccine, unspecified formulationChristy Mulligan [phone]-YwojkTrinity Health Systemue Payers DatePayer CategoryPayerPolicy [id number]-dyi [id number] [id number] Health Insurance [id number] 2018Medicare [id number] 2018Medicare HMOMEDICAL MUTUAL MEDICARE [id number] 1960Medicare [id number] 2.0.1.604181.3.579.2.59797-63-0908Pvmmckq78276529 2.0.1.487064.3.579.2.39519-81-4109Bbnsivx51998670 2.0.1.316127.3.579.2.43233-06-9865Mvajoot84686241 2.16.840.1.816380.3.579.2.68649-52-7278Klkrqmm83107425 2.16.840.1.026378.3.579.2.22083-66-6208Agcfhwt80977774 2.16.840.1.157684.3.579.2.61007-66-1640Jqvhhgk70565695 2.16.840.1.777247.3.579.2.84981-48-4024Qzumepn03393927 2.16.840.1.792990.3.579.2.22788-29-3977Mbenwnq01141226 2.16.840.1.995074.3.579.2.80562-08-9032Mevgino79934351 2.16.840.1.326868.3.579.2.97154-39-2338Xzfpazy58644375 2.16.840.1.541257.3.579.2.81803-04-3217Ioyaaqx38509424 2.16.840.1.986937.3.579.2.79790-60-1434Hqilxcv10442058 2.16.840.1.856444.3.579.2.64193-56-2800Sgpaayx65112472 2.16.840.1.326793.3.579.2.38407-13-1586Jgrzrrv65162251 2.16.840.1.626319.3.579.2.02603-24-9385Nrhaski73075008 2.16.840.1.811838.3.579.2.49711-40-2334Kxeujzj72266771 2.16.840.1.487589.3.579.2.76850-03-0701Hgwlfsh62198513 2.16.840.1.791694.3.579.2.48005-71-7203Aurdjqc66848539 2.16.840.1.079935.3.579.2.49799-64-6054Chtujux11650352 2.16.840.1.030350.3.579.2.08323-27-0167Zguppzw92802458 2.16.840.1.829546.3.579.2.27985-78-1597Byvabpt70537781 2.16.840.1.839897.3.579.2.42120-50-3299Urusxpk19768214 2.16.840.1.420737.3.579.2.67930-63-1015Mflmcpe52707613 2.16.840.1.114755.3.579.2.40684-85-3464Dugyqwm73947530 2.16.840.1.986122.3.579.2.02020-10-4156Sqrgjyj83329222 2.16.840.1.510092.3.579.2.97665-32-9829Qrbpkdv42861040 2.16.840.1.310291.3.579.2.48011-76-9110Nkoylga92194865 2.16.840.1.934312.3.579.2.41409-49-0047Txxusye40501306 2.16.840.1.925417.3.579.2.62098-73-0822Xkusuph868280339 2.16.840.1.304299.3.579.2.198032-55-2062Cvtvujb73800903 2.16.840.1.376145.3.579.2.61855-09-8405Cymrbfy47702604 2.16.840.1.051616.3.579.2.32941-43-3058Rgxjeid16506110 2.16.840.1.473252.3.579.2.64300-07-4567Wpahipw91976514 2.16.840.1.049932.3.579.2.82288-88-6379Vaohdry41230915 2.16.840.1.914410.3.579.2.64252-65-9135Dimbsrc89109540 2.16.840.1.818468.3.579.2.66916-81-4187Jrovgpf63551559 2.16840.1.688616.3.579.2.01303-31-7797Flcogff38772195 2.16.840.1.737257.3.579.2.45111-16-2535Okoagnn2389496 2.16.840.1.022888.3.579.2.990593-00-8500Vxcoqbq9489725 2.16.840.1.274990.3.579.2.929321-28-2854Ckxppdq5301201 2.16.840.1.490294.3.579.2.678606-85-9171Pcoivxa3675669 2.16.840.1.796179.3.579.2.360339-23-0531Ejmvkex6243543 2.16.840.1.518043.3.579.2.023380-85-2032Kcfnimn63130978 2.16.840.1.852112.3.579.2.16788-42-8694Afbwxfx08136795 2.16.840.1.877684.3.579.2.84567-87-6944Iyehieq62875882 2.16.840.1.089925.3.579.2.85419-79-1082Oxmjyji47906704 2.16.840.1.239982.3.579.2.25554-04-5368Ynutebs18008610 2.16.840.1.156292.3.579.2.34079-05-6520Ccquopl22552317 2.16.840.1.886188.3.579.2.40023-67-9708Meswomf67800241 2.16.840.1.178473.3.579.2.40747-40-7974Aexbxoc29917289 2.16.840.1.740195.3.579.2.80333-41-1570Ocqikhe80045416 2.16.840.1.513898.3.579.2.51863-52-2263Eovphax82467581 2.16.840.1.492790.3.579.2.65045-29-1297Qpbljcn16578267 2.16.840.1.535122.3.579.2.94057-66-0438Wvriiho51024016 2.16.840.1.431609.3.579.2.08910-35-2753Rljmhyd63090869 2.16.840.1.494714.3.579.2.20129-25-1591Osphtww81345702 2.16.840.1.169934.3.579.2.75961-25-6277Nvbpifn72618627 2.16.840.1.571490.3.579.2.18067-58-1427Ouiczew13923568 2.16.840.1.637652.3.579.2.88194-09-2205Prycmbe36307836 2.16.840.1.187534.3.579.2.18867-04-6306Unchxpt05980244 2.16.840.1.707226.3.579.2.28684-16-9918Dxgzevc85960516 2.16.840.1.582930.3.579.2.22367-14-1957Ygkdchn18972213 2.16.840.1.267441.3.579.2.99793-21-9769Bpmxgij83295664 2.16.840.1.001072.3.579.2.31809-74-9659Rqbhdkm79726033 2.16.840.1.020162.3.579.2.01166-98-4229Rzfjxsn88255811 2.16.840.1.734209.3.579.2.91663-10-1095Iswfgku27716234 2.16.840.1.441465.3.579.2.785Jjwjppm121723114 p969f0ey-52j3-4nw4-2452-06x9l23x65o4Jbkzhfr89323025 2.16.840.1.429532.3.579.2.531 Social History DateTypeDetailFacilityStart: 01-20-2023 End: 14-01-2271Hieqard smoking statusEx-smoker (finding)[facility]vueComment [facility] above:former smoker, quit 2006uses chewing tobacco former smoker. stopped at age 50.Tobacco smoking statusSmokeless tobacco user within last 30 daysEast [facility] BellevueComment on above:former smoker, quit 2006uses chewing tobaccoformer smoker. stopped at age 50.Start: 11-15-2018 End: 70-56-7175Wuu Assigned At BirthMalNationwide Children's Hospitaltart: 81-67-2947Fdv Assigned At [facility] HospitalTobacco smoking status NHISTobacco smoking consumption unknownNOMS HealthcareStart: 15-17-3408Tda assigned at birthNot on fileNOMS HealthcareStart: 11-15-2018 End: 63-59-8627Xhnpdyk of Social functionProMedica Health SystemStart: 06-28-2012 End: 85-83-8275UohXkbg (finding)[facility] SystemHistory of tobacco use Current smokerNOMS HealthcareHistory of tobacco useCigarette SmokerNOMS HealthcareStart: 33-32-9266Nbvbvlt use and exposureSmokeless tobacco non-user [facility] HealthcareStart: 08-14-2024 End: 45-12-8602Bqwjlvral beverage intakeCurrent drinker of alcohol (finding)[facility] HealthcareStart: 78-31-5461Fftcnyc Comment2 BEERS/WKNOMS HealthcareSexual OrientationCleveland Clinic Marymount Hospital Medical Equipment Procedure CodeEquipment CodeEquipment Original TextEquipment IdentifierDatesMisc DME Prescription, See Instructions, 100 strip(s), 3, One touch ultra 2 test strips Use to tests sugars once a day Dx E11.9, [facility], 174.5, cm, 05/26/23 9:14:00EST, Height/Length Dosing, 109.1, kg, 05/26/23 9:14:00 EST, Weight DosingStart: 39-09-8012Agxn DME Prescription, See Instructions, 100 lancet(s), 3, Soft click lancets Use to test blood sugars once a day Dx E11.9, [facility], 174.5, cm, 05/26/23 9:14:00 EST,Height/Length Dosing, 109.1, kg, 05/26/23 9:14:00 EST, Weight DosingStart: 75-71-5342Muhb DME Prescription, See Instructions, 100 strip(s), 3, One touch ultra 2 test strips Use to tests sugars once a day Dx E11.9, [facility], 174.5, cm, 05/26/23 9:14:00 EST, Height/Length Dosing, 109.1, kg, 05/26/23 9:14:00 EST, Weight DosingStart: 28-62-7368Nizl DME Prescription, See Instructions, 100 lancet(s), 3, Soft click lancets Use to test blood sugars once a day Dx E11.9, [facility], Supply, 174.5, cm, 05/26/23 9:14:00 EST,Height/Length Dosing, 109.1, kg, 05/26/23 9:14:00 EST, Weight DosingStart: 20-35-4774Abyb DME Prescription, See Instructions, 100 strip(s), 3, One touch ultra 2 test strips Use to tests sugars once a day Dx E11.9, [facility], Supply, 174.5, cm, 05/26/23 9:14:00EST, Height/Length Dosing, 109.1, kg, 05/26/23 9:14:00 EST, Weight DosingStart: 28-48-7910Zkof DME Prescription, See Instructions, 100 lancet(s), 3, Soft click lancets Use to test blood sugars once a day Dx E11.9, [facility], Supply, 174.5, cm, 05/26/23 9:14:00 EST, Height/Length Dosing, 109.1, kg, 05/26/23 9:14:00 EST, Weight DosingStart: 33-73-0096Ycik DME Prescription, See Instructions, 100 strip(s), 3, One touch ultra 2 test strips Use to tests sugars once a day Dx E11.9, [facility], Supply, 174.5, cm, 05/26/23 9:14:00EST, Height/Length Dosing, 109.1, kg, 05/26/23 9:14:00 EST, Weight DosingStart: 97-39-4409Omxs DME Prescription, See Instructions, 100 lancet(s), 3, Soft click lancets Use to test blood sugars once a day Dx E11.9, [facility], Supply, 174.5, cm, 05/26/23 9:14:00 EST,Height/Length Dosing, 109.1, kg, 05/26/23 9:14:00 EST, Weight DosingStart: 01-10-8716Twit DME Prescription, See Instructions, 100 strip(s), 3, One touch ultra 2 test strips Use to tests sugars once a day Dx E11.9, [facility], Supply, 174.5, cm, 05/26/23 9:14:00EST, Height/Length Dosing, 109.1, kg, 05/26/23 9:14:00 EST, Weight DosingStart: 76-91-1657Fcaw DME Prescription, See Instructions, 100 lancet(s), 3, Soft click lancets Use to test blood sugars once a day Dx E11.9, [facility], Supply, 174.5, cm, 05/26/23 9:14:00 EST, Height/Length Dosing, 109.1, kg, 05/26/23 9:14:00 EST, Weight DosingStart: 09-92-8068Kuzj DME Prescription, See Instructions, 100 strip(s), 3, One touch ultra 2 test strips Use to tests sugars once a day Dx E11.9, [facility], Supply, 174.5, cm, 05/26/23 9:14:00EST, Height/Length Dosing, 109.1, kg, 05/26/23 9:14:00 EST, Weight DosingStart: 51-35-3289Syxo DME Prescription, See Instructions, 100 lancet(s), 3, Soft click lancets Use to test blood sugars once a day Dx E11.9, [facility], Supply, 174.5, cm, 05/26/23 9:14:00 EST,Height/Length Dosing, 109.1, kg, 05/26/23 9:14:00 EST, Weight DosingStart: 46-06-8667Ezgu DME Prescription, See Instructions, 100 strip(s), 3, One touch ultra 2 test strips Use to tests sugars once a day Dx E11.9, [facility], Supply, 174.5, cm, 05/26/23 9:14:00EST, Height/Length Dosing, 109.1, kg, 05/26/23 9:14:00 EST, Weight DosingStart: 95-65-3540Tjok DME Prescription, See Instructions, 100 lancet(s), 3, Soft click lancets Use to test blood sugars once a day Dx E11.9, [facility], Supply, 174.5, cm, 05/26/23 9:14:00 EST, Height/Length Dosing, 109.1, kg, 05/26/23 9:14:00 EST, Weight DosingStart: 19-18-7955Jtjo DME Prescription, See Instructions, 100 strip(s), 3, One touch ultra 2 test strips Use to tests sugars once a day Dx E11.9, [facility], Supply, 174.5, cm, 05/26/23 9:14:00EST, Height/Length Dosing, 109.1, kg, 05/26/23 9:14:00 EST, Weight DosingStart: 58-49-5449Plwg DME Prescription, See Instructions, 100 lancet(s), 3, Soft click lancets Use to test blood sugars once a day Dx E11.9, [facility], Supply, 174.5, cm, 05/26/23 9:14:00 EST,Height/Length Dosing, 109.1, kg, 05/26/23 9:14:00 EST, Weight DosingStart: 45-67-7135Ohov DME Prescription, See Instructions, 100 strip(s), 3, One touch ultra 2 test strips Use to tests sugars once a day Dx E11.9, [facility], Supply, 174.5, cm, 05/26/23 9:14:00EST, Height/Length Dosing, 109.1, kg, 05/26/23 9:14:00 EST, Weight DosingStart: 54-11-6771Iduk DME Prescription, See Instructions, 100 lancet(s), 3, Soft click lancets Use to test blood sugars once a day Dx E11.9, [facility], Supply, 174.5, cm, 05/26/23 9:14:00 EST, Height/Length Dosing, 109.1, kg, 05/26/23 9:14:00 EST, Weight DosingStart: 36-41-4034Jtgkpk Three Level DeformityFDAStart: 06-10-1393VZORDLGH RELINE SCREW FDAStart: 75-18-6621DDSKHFZA RELINE SCREWFDAStart: 15-93-6857JYXTYCFQ RELINE SCREWFDAStart: 65-43-3062GVKPIEMK RELINE SCREWFDAStart: 06-99-2114YFAAQYDN RELINE SCREWFDAStart: 22-40-3687LTKCKHMW RELINE SCREWFDAStart: 05-18-2017 NUVASIVE RELINE SET SCREWFDAStart: 63-92-7356RJYHFXYB RELINE SET SCREWFDAStart: 07-97-9000YXTXKJEB RELINE SET SCREWFDAStart: 65-94-6438AQTQKLSV RELINE SET SCREW FDAStart: 50-58-4737QIDFHXPGVS 30CC CRUSHEDFDAStart: 44-81-2240ZRPYYNEY RELINE SET SCREWFDAStart: 65-59-3086ODNLKCBS RELINE SET SCREWFDAStart: 05-18-2017 NUVASIVE RELINE SET SCREWFDAStart: 56-68-1016KRXKKMJG RELINE SET SCREWFDAStart: 35-05-9733HCAABHLUH CAPLOX II MED/LGFDAStart: 82-91-2441XHZMTO LARGE 8.0CCFDA Start: 28-02-2850MPS PLIF INTERBODY NUVASIVEFDAStart: 24-66-8702SMW PLIF INTERBODY NUVASIVEFDAStart: 10-35-8965NJPYAQRW RELINE RODFDAStart: 05-18-2017 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FDAStart: 92-99-5384IPXFEBPT RELINE SCREWFDAStart: 16-23-6975Lwolwu Three Level DeformityFDAStart: 65-42-0410TXUMAFKU RELINE SCREW FDAStart: 45-52-7475YEWZFPNO RELINE SCREWFDAStart: 68-31-1185QXYLPAXH RELINE SCREWFDAStart: 28-31-4835FAXYIIHR RELINE SCREWFDAStart: 09-70-6314EPBGUROP RELINE SCREWFDAStart: 04-44-7945ITBRQAFT RELINE SCREWFDAStart: 05-18-2017 NUVASIVE RELINE SET SCREWFDAStart: 67-79-4382PQIAFIGC RELINE SET SCREWFDAStart: 37-02-2178RBWEDXJD RELINE SET SCREWFDAStart: 50-47-3763LCQXHWWG RELINE SET SCREW FDAStart: 30-21-0955PEQYAQRTAC 30CC CRUSHEDFDAStart: 69-72-8157YAUEFHZJ RELINE SET SCREWFDAStart: 03-79-4672UDCYTWXA RELINE SET SCREWFDAStart: 05-18-2017 NUVASIVE RELINE SET SCREWFDAStart: 42-49-9478TEEUVYWE RELINE SET SCREWFDAStart: 03-77-7899ZDFSPXJKK CAPLOX II MED/LGFDAStart: 97-81-2241CXOOPN LARGE 8.0CCFDA Start: 94-17-3482XYG PLIF INTERBODY NUVASIVEFDAStart: 23-01-0491OSF PLIF INTERBODY NUVASIVEFDAStart: 71-99-5689SVTCDOLV RELINE RODFDAStart: 05-18-2017 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FDAStart: 38-71-1228WCVZYGTV RELINE SCREWFDAStart: 91-13-2870Sqkm DME Prescription, See Instructions, 100 strip(s), 3, One touch ultra 2 test strips Use to tests sugars once a day Dx E11.9, [facility], Supply, 174.5, cm, 05/26/23 9:14:00EST, Height/Length Dosing, 109.1, kg, 05/26/23 9:14:00 EST, Weight DosingStart: 95-95-5045Lcyp DME Prescription, See Instructions, 100 lancet(s), 3, Soft click lancets Use to test blood sugars once a day Dx E11.9, [facility], Supply, 174.5, cm, 05/26/23 9:14:00 EST,Height/Length Dosing, 109.1, kg, 05/26/23 9:14:00 EST, Weight DosingStart: 85-97-3368Sdud DME Prescription, See Instructions, 100 strip(s), 3, One touch ultra 2 test strips Use to tests sugars once a day Dx E11.9, [facility], Supply, 174.5, cm, 05/26/23 9:14:00EST, Height/Length Dosing, 109.1, kg, 05/26/23 9:14:00 EST, Weight DosingStart: 84-85-8464Wgpy DME Prescription, See Instructions, 100 lancet(s), 3, Soft click lancets Use to test blood sugars once a day Dx E11.9, [facility], Supply, 174.5, cm, 05/26/23 9:14:00 EST, Height/Length Dosing, 109.1, kg, 05/26/23 9:14:00 EST, Weight DosingStart: 67-42-9705Pudf DME Prescription, See Instructions, 100 strip(s), 3, One touch ultra 2 test strips Use to tests sugars once a day Dx E11.9, [facility], Supply, 174.5, cm, 05/26/23 9:14:00EST, Height/Length Dosing, 109.1, kg, 05/26/23 9:14:00 EST, Weight DosingStart: 54-47-0533Txmc DME Prescription, See Instructions, 100 lancet(s), 3, Soft click lancets Use to test blood sugars once a day Dx E11.9, [facility], Supply, 174.5, cm, 05/26/23 9:14:00 EST,Height/Length Dosing, 109.1, kg, 05/26/23 9:14:00 EST, Weight DosingStart: 45-21-3126Kdkb DME Prescription, See Instructions, 100 strip(s), 3, One touch ultra 2 test strips Use to tests sugars once a day Dx E11.9, [facility], Supply, 174.5, cm, 05/26/23 9:14:00EST, Height/Length Dosing, 109.1, kg, 05/26/23 9:14:00 EST, Weight DosingStart: 58-59-1086Kjqn DME Prescription, See Instructions, 100 lancet(s), 3, Soft click lancets Use to test blood sugars once a day Dx E11.9, [facility], Supply, 174.5, cm, 05/26/23 9:14:00 EST, Height/Length Dosing, 109.1, kg, 05/26/23 9:14:00 EST, Weight DosingStart: 78-48-0523Kdqj DME Prescription, See Instructions, 100 strip(s), 3, One touch ultra 2 test strips Use to tests sugars once a day Dx E11.9, [facility], Supply, 174.5, cm, 05/26/23 9:14:00EST, Height/Length Dosing, 109.1, kg, 05/26/23 9:14:00 EST, Weight DosingStart: 26-90-5025Ssde DME Prescription, See Instructions, 100 lancet(s), 3, Soft click lancets Use to test blood sugars once a day Dx E11.9, [facility], Supply, 174.5, cm, 05/26/23 9:14:00 EST,Height/Length Dosing, 109.1, kg, 05/26/23 9:14:00 EST, Weight DosingStart: 87-90-8402Phhd DME Prescription, See Instructions, 100 strip(s), 3, One touch ultra 2 test strips Use to tests sugars once a day Dx E11.9, [facility], Supply, 174.5, cm, 05/26/23 9:14:00EST, Height/Length Dosing, 109.1, kg, 05/26/23 9:14:00 EST, Weight DosingStart: 10-67-5474Pkjt DME Prescription, See Instructions, 100 lancet(s), 3, Soft click lancets Use to test blood sugars once a day Dx E11.9, [facility], Supply, 174.5, cm, 05/26/23 9:14:00 EST, Height/Length Dosing, 109.1, kg, 05/26/23 9:14:00 EST, Weight DosingStart: 10-46-9492Ekzy DME Prescription, See Instructions, 100 strip(s), 3, One touch ultra 2 test strips Use to tests sugars once a day Dx E11.9, [facility], Supply, 174.5, cm, 05/26/23 9:14:00EST, Height/Length Dosing, 109.1, kg, 05/26/23 9:14:00 EST, Weight DosingStart: 81-28-9192Ffnc DME Prescription, See Instructions, 100 lancet(s), 3, Soft click lancets Use to test blood sugars once a day Dx E11.9, [facility], Supply, 174.5, cm, 05/26/23 9:14:00 EST,Height/Length Dosing, 109.1, kg, 05/26/23 9:14:00 EST, Weight DosingStart: 45-41-6675Yihbso Three Level DeformityFDAStart: 22-94-8431STQCKRCG RELINE SCREWFDAStart: 95-90-2464DCYYEOSW RELINE SCREWFDA Start: 91-35-4084KIKDVXLW RELINE SCREWFDAStart: 98-46-4913ZSHPSXPJ RELINE SCREW FDAStart: 82-48-8424PSZJPMAM RELINE SCREWFDAStart: 53-09-5667MQQKWEMZ RELINE SCREWFDAStart: 03-33-6611PBWHGOUQ RELINE SET SCREWFDAStart: 44-22-7994IUQHBDMZ RELINE SET SCREWFDAStart: 21-37-4455VBHCNWYJ RELINE SET SCREWFDAStart: 24-77-1898JLOQYYRX RELINE SET SCREWFDAStart: 51-70-3186YXRDHXCCVP 30CC CRUSHED FDAStart: 97-24-9693CWJAHAMN RELINE SET SCREWFDAStart: 31-67-9572AIIDJRZQ RELINE SET SCREWFDAStart: 27-26-4016LIXEFQZB RELINE SET SCREWFDAStart: 05-18-2017 NUVASIVE RELINE SET SCREWFDAStart: 53-35-2850ZXXBSQQWC CAPLOX II MED/LGFDAStart: 49-63-6251BAWFMQ LARGE 8.0CCFDAStart: 91-24-9115FPX PLIF INTERBODY NUVASIVEFDA Start: 34-46-8900USY PLIF INTERBODY NUVASIVEFDAStart: 74-18-2228MIWBUYUA RELINE RODFDAStart: 20-04-6244VATAJYOU RELINE SCREWFDAStart: 35-42-5144VGILNFTX RELINE SCREWFDAStart: 06-79-2385Fbmb DME Prescription, See Instructions, 100 strip(s), 3, One touch ultra 2 test strips Use to tests sugars once a day Dx E11.9, [facility], Supply, 174.5, cm, 05/26/23 9:14:00EST, Height/Length Dosing, 109.1, kg, 05/26/23 9:14:00 EST, Weight DosingStart: 10-89-4549Vaka DME Prescription, See Instructions, 100 lancet(s), 3, Soft click lancets Use to test blood sugars once a day Dx E11.9, [facility], Supply, 174.5, cm, 05/26/23 9:14:00 EST,Height/Length Dosing, 109.1, kg, 05/26/23 9:14:00 EST, Weight DosingStart: 52-29-6946Ltjk DME Prescription, See Instructions, 100 strip(s), 3, One touch ultra 2 test strips Use to tests sugars once a day Dx E11.9, [facility], Supply, 174.5, cm, 05/26/23 9:14:00EST, Height/Length Dosing, 109.1, kg, 05/26/23 9:14:00 EST, Weight DosingStart: 01-73-0792Zanc DME Prescription, See Instructions, 100 lancet(s), 3, Soft click lancets Use to test blood sugars once a day Dx E11.9, [facility], Supply, 174.5, cm, 05/26/23 9:14:00 EST, Height/Length Dosing, 109.1, kg, 05/26/23 9:14:00 EST, Weight DosingStart: 43-14-3936Wtfl DME Prescription, See Instructions, 100 strip(s), 3, One touch ultra 2 test strips Use to tests sugars once a day Dx E11.9, [facility], Supply, 174.5, cm, 05/26/23 9:14:00EST, Height/Length Dosing, 109.1, kg, 05/26/23 9:14:00 EST, Weight DosingStart: 56-13-7966Iryg DME Prescription, See Instructions, 100 lancet(s), 3, Soft click lancets Use to test blood sugars once a day Dx E11.9, [facility], Supply, 174.5, cm, 05/26/23 9:14:00 EST,Height/Length Dosing, 109.1, kg, 05/26/23 9:14:00 EST, Weight DosingStart: 50-56-6466Fcrh DME Prescription, See Instructions, 100 strip(s), 3, One touch ultra 2 test strips Use to tests sugars once a day Dx E11.9, [facility], Supply, 174.5, cm, 05/26/23 9:14:00EST, Height/Length Dosing, 109.1, kg, 05/26/23 9:14:00 EST, Weight DosingStart: 10-07-7863Rtim DME Prescription, See Instructions, 100 lancet(s), 3, Soft click lancets Use to test blood sugars once a day Dx E11.9, [facility], Supply, 174.5, cm, 05/26/23 9:14:00 EST, Height/Length Dosing, 109.1, kg, 05/26/23 9:14:00 EST, Weight DosingStart: 54-31-0885Mtdn DME Prescription, See Instructions, 100 strip(s), 3, One touch ultra 2 test strips Use to tests sugars once a day Dx E11.9, [facility], Supply, 174.5, cm, 05/26/23 9:14:00EST, Height/Length Dosing, 109.1, kg, 05/26/23 9:14:00 EST, Weight DosingStart: 34-23-8363Zffb DME Prescription, See Instructions, 100 lancet(s), 3, Soft click lancets Use to test blood sugars once a day Dx E11.9, [facility], Supply, 174.5, cm, 05/26/23 9:14:00 EST,Height/Length Dosing, 109.1, kg, 05/26/23 9:14:00 EST, Weight DosingStart: 48-96-6749Uvec DME Prescription, See Instructions, 100 strip(s), 3, One touch ultra 2 test strips Use to tests sugars once a day Dx E11.9, [facility], Supply, 174.5, cm, 05/26/23 9:14:00EST, Height/Length Dosing, 109.1, kg, 05/26/23 9:14:00 EST, Weight DosingStart: 19-85-7327Ijpe DME Prescription, See Instructions, 100 lancet(s), 3, [...] BS twice daily- will bring equipment to [facility] f/u to update brandStart: 11-18-3431Qiasfq Three Level DeformityFDAStart: 73-44-5581XUNDZJDS RELINE SCREW FDAStart: 07-48-0077PZMYMDJP RELINE SCREWFDAStart: 77-59-9435LGZUAQYE RELINE SCREWFDAStart: 72-44-8971VXDTGQQY RELINE SCREWFDAStart: 89-32-4363LZMHZLIW RELINE SCREWFDAStart: 14-83-5728LAVNRIDK RELINE SCREWFDAStart: 05-18-2017 NUVASIVE RELINE SET SCREWFDAStart: 49-55-7145GDDYYJYX RELINE SET SCREWFDAStart: 14-15-1340LYTOKQES RELINE SET SCREWFDAStart: 82-90-7423AVDRHQAJ RELINE SET SCREW FDAStart: 03-13-2989MBNBITODYR 30CC CRUSHEDFDAStart: 70-99-7937AWSSFSXG RELINE SET SCREWFDAStart: 92-51-3215QYJFVSXX RELINE SET SCREWFDAStart: 05-18-2017 NUVASIVE RELINE SET SCREWFDAStart: 42-38-2984XIKQMMEM RELINE SET SCREWFDAStart: 23-28-4183EXAAXIPGP CAPLOX II MED/LGFDAStart: 23-22-7749ULXYDE LARGE 8.0CCFDA Start: 73-58-6419ZJQ PLIF INTERBODY NUVASIVEFDAStart: 16-73-1549AUH PLIF INTERBODY NUVASIVEFDAStart: 81-59-1612EYMYLDZQ RELINE RODFDAStart: 05-18-2017 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FDAStart: 22-91-6864LVZUVFIX RELINE SCREWFDAStart: 05-18-2017'Number 1' Glucometer and test strips testing BS twice daily- will bring equipment to [facility] f/u to update brandStart: 13-16-1420Vjwkwj Three Level DeformityFDAStart: 37-70-7938QYPZYMPY RELINE SCREWFDAStart: 76-69-8681SKWUJSNR RELINE SCREWFDAStart: 76-38-8742SRZWZDMD RELINE SCREWFDAStart: 05-18-2017 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FDAStart: 01-35-8461LAZFEIOG RELINE SCREWFDAStart: 11-11-5765XHONXPQQ RELINE SCREWFDAStart: 77-69-5732WBZCKVEV RELINE SET SCREWFDA Start: 67-46-5738HWVODJNL RELINE SET SCREWFDAStart: 49-20-4536TNYWHEOG RELINE SET SCREWFDAStart: 82-30-5128WMXJZEMO RELINE SET SCREWFDAStart: 05-18-2017 CANCELLOUS 30CC CRUSHEDFDAStart: 96-41-7241IFKNXKNT RELINE SET SCREWFDAStart: 86-59-4232LVNATFHA RELINE SET SCREWFDAStart: 22-25-8549YSEIXLRK RELINE SET SCREW FDAStart: 61-29-0263IQNIRYMM RELINE SET SCREWFDAStart: 71-11-3762MCGWVJMOC CAPLOX II MED/LGFDAStart: 03-51-8013ADVAWP LARGE 8.0CCFDAStart: 64-04-0864XJA PLIF INTERBODY NUVASIVEFDAStart: 41-52-9071UPZ PLIF INTERBODY NUVASIVEFDAStart: 91-63-6307FEIELKVL RELINE RODFDAStart: 16-90-4383HFIMMEEC RELINE SCREWFDAStart: 67-92-5693OBONHBNI RELINE SCREWFDAStart: 37-73-8244Vpdazx Three Level Deformity FDAStart: 74-46-9853VEXGUURI RELINE SCREWFDAStart: 77-81-2636VQCNTADH RELINE SCREWFDAStart: 35-92-3774EUSIXGAE RELINE SCREWFDAStart: 62-25-6211WMZOEITD RELINE SCREWFDAStart: 75-20-2103OLNJQQAR RELINE SCREWFDAStart: 05-18-2017 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FDAStart: 99-10-5711TMWNQZDX RELINE SET SCREWFDAStart: 14-14-3811VNWSVKYY RELINE SET SCREWFDAStart: 63-75-2378AIJSLARM RELINE SET SCREW FDAStart: 29-42-3473IZWRCNGY RELINE SET SCREWFDAStart: 21-42-9178IIMXCQFRHR 30CC CRUSHEDFDAStart: 97-55-9496KYYJNCCW RELINE SET SCREWFDAStart: 05-18-2017 NUVASIVE RELINE SET SCREWFDAStart: 46-61-4584QQZWQZAO RELINE SET SCREWFDAStart: 49-67-9507PWFGMSFD RELINE SET SCREWFDAStart: 47-25-0588CVQNIDINV CAPLOX II MED/LGFDAStart: 65-63-5510GIZTRP LARGE 8.0CCFDAStart: 50-39-2459EJG PLIF INTERBODY NUVASIVEFDAStart: 43-67-5889DHB PLIF INTERBODY NUVASIVEFDAStart: 20-97-0388IPNTRUSM RELINE RODFDAStart: 14-10-0590XSXJSKEP RELINE SCREWFDAStart: 96-70-6011RJQPETMI RELINE SCREWFDAStart: 90-95-4478Zweztx Three Level Deformity FDAStart: 42-11-2151YZPQCQZJ RELINE SCREWFDAStart: 94-23-8916AYLZXJZA RELINE SCREWFDAStart: 99-35-2279GNJBQLTC RELINE SCREWFDAStart: 94-35-1602PCRENWHV RELINE SCREWFDAStart: 48-57-1245WYVSQBAZ RELINE SCREWFDAStart: 05-18-2017 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FDAStart: 11-52-5394XBHWECLJ RELINE SET SCREWFDAStart: 47-20-7529NGMEJHMU RELINE SET SCREWFDAStart: 12-23-0350QNVBFHVK RELINE SET SCREW FDAStart: 41-90-3168EKYPGVUU RELINE SET SCREWFDAStart: 68-94-5795XUQOQXJNSX 30CC CRUSHEDFDAStart: 50-99-6339GYBMTYLR RELINE SET SCREWFDAStart: 05-18-2017 NUVASIVE RELINE SET SCREWFDAStart: 78-85-7586VDYVCPZJ RELINE SET SCREWFDAStart: 53-21-4560MLCJYMLF RELINE SET SCREWFDAStart: 84-16-7024ILOWBVBCC CAPLOX II MED/LGFDAStart: 25-15-7236WCOMTP LARGE 8.0CCFDAStart: 63-03-1676YXL PLIF INTERBODY NUVASIVEFDAStart: 58-96-7801DWW PLIF INTERBODY NUVASIVEFDAStart: 14-82-3086QYAAMNQQ RELINE RODFDAStart: 77-47-4466HHKIDJRA RELINE SCREWFDAStart: 45-10-2359TZPBKROX RELINE SCREWFDAStart: 05-18-2017 Goals DatePatient GoalDesired Activity/State Functional Status WlptDibxrgcowaGpebsmMzmwgypm91-49-1418Lssarzuaqz StatusN/[facility]08-06-2024Functional StatusN/[facility]-25-2024Functional StatusN/[facility] 31-61-6331Qfppqgantx StatusC[facility]06-24-2024Functional StatusN/[facility]05-15-2024Functional StatusNoC[facility]04-18-2024Functional StatusN/AExecutive Urology [facility]03-15-2024Functional StatusN/[facility]03-07-2024Functional StatusUniversity [facility]als [facility] 86-46-7015Plsrijftxk StatusN/A[facility]02-09-2024Functional StatusN/[facility]01-16-2024 Functional StatusN/A[facility] Clinical Notes 06-13-2019 to 03-19-2025 Note Date & HgipTpweFzmietqm50-93-7305 Hospital Discharge instructions Patient Education 03/19/2025 10:00:34 [...] treatment? Where to find more information The [place] Cancer Society: www.cancer.org [place] Urological Association: www.auanet.org Contact a health care [...] provider. Document Revised: 11/16/2021 Document Reviewed: 11/16/2021 [employer] Patient Education 2023 CloudSlides. Follow Up Care 09/25/2024 10:23:11 With:EMMY REYNOLDS, Bryant Vogel, URL Address: [address] [place], [place] [address]- When: Unknown Comments:3 mos w/ PSA F&T [facility] [place] 10-14-2025 NotePatient Education Oncology Prostate Cancer [...] Where to find more information ??? The [place] Cancer Society: www.cancer.org ??? [place] Urological Association: www.auanet.org Contact a health care [...] men. The prostate gland (more content not included)...[facility]10-13-20[facility] Evaluation note* Diagnosis Onset Date Resolution Status Admit Date BPH (benign prostatic hyperplasia) acuteOctober 2024 8:01amDiabetesacuteOctober 2024 8:01amElevated PSA measurementacuteOctober 2024 8:01amHiatal hernia with GERD without esophagitisacuteOctober 2024 8:01amHypercholesteremiaacuteOctober 2024 8:01amHypertensionacuteOctober 2024 8:01amHypomagnesemiaacuteOctober 2024 8:01amKidney diseaseacuteOctober 2024 8:01amNausea and vomiting acuteOctober 2024 8:01am [facility] Work Phone: 1(528) 536-237210-13-2025 Evaluation note* Diagnosis Onset Date Resolution Status Admit Date BPH (benign prostatic hyperplasia) acuteOctober 2024 8:01amDiabetesacuteOctober 2024 8:01amElevated PSA measurementacuteOctober 2024 8:01amHiatal hernia with GERD without esophagitisacuteOctober 2024 8:01amHypercholesteremiaacuteOctober 2024 8:01amHypertensionacuteOctober 2024 8:01amHypomagnesemiaacuteOctober 2024 8:01amKidney diseaseacuteOctober 2024 8:01amNausea and vomiting acuteOctober 2024 8:01amAcute UTIacuteOctober 2024 9:40am [facility] Work Phone: 1(461) 869-776310-13-2025 Evaluation note* Diagnosis Onset Date Resolution Status Admit Date BPH (benign prostatic hyperplasia) acuteOctober 13th, 2025 8:01amDiabetesacuteOctober 2024 8:01amElevated PSA measurementacuteOctober 2024 8:01amHiatal hernia with GERD without esophagitisacuteOctober 2024 8:01amHypercholesteremiaacuteOctober 2024 8:01amHypertensionacuteOctober 2024 8:01amHypomagnesemiaacuteOctober 2024 8:01amKidney diseaseacuteOctober 2024 8:01amNausea and vomiting acuteOctober 2024 8:01amAcute UTIacuteOctober 2024 9:40amBPH (benign prostatic hyperplasia)acuteNovember 2024 10:13amCKD (chronic kidney disease) stage 3, GFR 30-59 ml/minacuteNovun[facility] 2024 10:13amHypertensive chronic kidney disease with stage 1 through stage 4 chronic [facility] 2024 10:13amHypomagnesemiaacuteCardinal Hill [facility] 2024 10:13amSecondary hyperparathyroidismacuteCardinal Hill Rehabilitation Center 2024 10:13amType 2 diabetes mellitus with diabetic chronic kidney diseaseacuteAt[facility]2024 10:13am [facility] Work Phone: 1(567) 928-506608-05-2025 NotePatient Education Endocrinology Type 2 Diabetes Mellitus, [...] be managed by a specialist called an security shift supervisor. Type 2 diabetes may be treated by [...] meet with a certified diabetes care and mathematics education professor? What diabetes medicines do I need, and when should I take them? What equipment will I need to manage my diabetes at home? How often do I need to check my blood glucose? Where can I find a support group for people with diabetes? What number can I call if I have questions? When is my next appointment? General instructions ??? Take vaxk-zhn-ijmbrsj and prescription medicines only as told by your health care provider. ??? Keep all follow-up visits. This is important. Where to find more information For help and guidance and for more information about diabetes, please visit: ??? [place] Diabetes Association (ADA): www.diabetes.org ??? [place] Association of Diabetes Care and Education Specialists (ADCES): www.diabeteseducator.org ??? International Diabetes Federation (IDF): www.idf (more content not included)...[facility]06-11-2025 NotePatient Education Urology Hematuria, Adult Hematuria [...] these instructions at home: Medicines ??? Take amke-kng-sbjvjvu and prescription medicines only as told by [...] the blood stops without treatment. ??? Take qcab-iad-bhbpuxr and prescription medicines only as told by your health care provider. ??? Drink enough fluid to keep your urine pale yellow. This information is not intended to replace advice given to you by your health care provider. Make sure you discuss any questions you have with your health care provider. Document Revised: 01/21/2021 Document Reviewed: 01/21/2021 [employer] Patient Education ? 2023 CloudSlides.[facility] 10-08-2024 NotePatient Education Nutrition BMI for [...] for Disease Control and Prevention: cdc.gov ??? [place] Heart Association: heart.org ??? National Heart, Lung, and Blood [place]: nhlbi.nih.gov This information is not intended to replace advice given to you by your health care provider. Make sure you discuss any questions you have with your health care provider. Document Revised: 02/10/2023 Document Reviewed: 02/03/2023 [employer] Patient Education ? 2023 CloudSlides.[facility] 09-25-2024 History of Present illness Narrative* [...] requiring urgent evaluation. 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 documented in this encounterBarnes-Jewish HospitalWgytjwqpxa85-52-3546 History of Present illness Narrative* MEIR Bob [...] for requiring urgent evaluation. documented in this encounterBarnes-Jewish HospitalWairxiecop77-33-2791 Instructions* Patient Instructions* MEIR Bob - 09/11/2024 [...] for more urgent evaluation. documented in this [facility]03-25-2025 Telephone encounter Note* Telephone Encounter - Rosenda Wade - 08/28/2024 10:06 AM EDT 's office left vm. Magnesium improved they stated. They stated that the final clearance is up to . The office phone number is [phone] ext [phone] [facility] HospitalWyadvdylpp24-62-2926 Miscellaneous Notes* Telephone Encounter - Rosenda Wade - 08/28/2024 10:06 AM EDT 's office left vm. Magnesium improved they stated. They stated that the final clearance is up to . The office phone number is [phone] ext [phone] documented in this [facility]03-18-2025 NotePatient Education Urology Acute Urinary Retention, [...] these instructions at home: Medicines ??? Take luws-uqe-bkzsipo and prescription medicines only as told by [...] provider. Document Revised: 02/11/2021 Document Reviewed: 02/11/2021 [employer] Patient Education ? 2023 CloudSlides.[facility] 08-14-2024 History of Present illness Narrative* [...] @ 9:15 FREMONT- RAUL. documented in this encounterBarnes-Jewish HospitalEnozrhdfbq13-41-4481 History of Present illness Narrative* Jr. Lauren [...] DISCOMFORT ~5MONTHS (02/2024). DIFFICULTY TAKING PILLS. 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 ADMITS N/T. GOOD ROM [...] is normal. Strength additional comments: 5/5 EQUAL FORCE DISPATCHER STRENGTH Neurovascular Right Right neurovascular exam is [...] for requiring urgent evaluation. documented in this encounterBarnes-Jewish HospitalByqbmzndze66-89-2372 NotePatient Education Nutrition BMI for Adults Body [...] for Disease Control and Prevention: cdc.gov ??? [place] Heart Association: heart.org ??? National Heart, Lung, and Blood [place]: nhlbi.nih.gov This information is not intended to replace advice given to you by your health care provider. Make sure you discuss any questions you have with your health care provider. Document Revised: 02/10/2023 Document Reviewed: 02/03/2023 [employer] Patient Education ? 2023 CloudSlides.[facility] 07-09-2024 NotePatient Education Cardiovascular Hypertension, Adult [...] one 12 oz bottle (more content not included)...[facility]12-17-2024 History of Present illness Narrative* SANDRA Calix - 05/22/2024 8:30 AM EST Images from the original note were not included. Reason for Appointment: EMG Patient: Alicja Reyes : 1955 EMG Computer: daysoft Referring Physician: Marino Kearns CNP EMG: LEONELE rice drier operator: Gee Wang RT(R) Office Location: [place] Reason for EMG: c/o numbness/tingling in fingers on left hand. Hx of left CTR & surgery to leftelbow. Hx of DM. Not on blood thinners. Comments: Procedure was explained to the patient who expressed understanding. Patient appeared to have tolerated the test well despite some discomfort due to the nature of the test. documented in this encounterBarnes-Jewish HospitalGrqbnomazu77-91-7671 NotePatient Education Neurology Paresthesia Paresthesia is a [...] liquor (44 mL). General instructions ??? Take ifby-vmu-prdqhqg and prescription medicines only as told by [...] provider. Document Revised: 02/01/2022 Document Reviewed: 02/01/2022 [employer] Patient Education ? 2023 [employer] Inc.[facility] 01-30-2024 NoteNurse Consultation Note Reason for [...] virus vaccine, inactivated 04/05/2022 Recorded SARS-CoV-2 (COVID-19) mRNAMUL.ORD![id number] 04/05/2022 Recorded influenza virus vaccine, inactivated 03/01/2021 Recorded SARS-CoV-2 (COVID-19) mRNA BNT-162b2 vax 03/01/2021 Recorded 2023-01-13: TPV65 SARS-CoV-2 (COVID-19) mRNA BNT-162b2 vax 08/08/2020 Recorded SARS-CoV-2 (COVID-19) mRNA BNT-162b2 vax 07/18/2020 Recorded pneumococcal 13-valent vaccine 03/09/2020 Recorded influenza virus vaccine, inactivated 03/09/2020 [facility]ed[facility]08-[facility]-2024 NoteNurse Consultation Note Reason for Visit Here for lab draw and Dr Tao ordered PSA free and total also joni that for him. canceled the urineculture as patient had urine done at [facility] yesterday and was told [...] virus vaccine, inactivated 04/05/2022 Recorded SARS-CoV-2 (COVID-19) mRNAMUL.ORD![id number] 04/05/2022 Recorded influenza virus vaccine, inactivated 03/01/2021 Recorded SARS-CoV-2 (COVID-19) mRNA BNT-162b2 vax 03/01/2021 Recorded 2023-01-13: TPV65 SARS-CoV-2 (COVID-19) mRNA BNT-162b2 vax 08/08/2020 Recorded SARS-CoV-2 (COVID-19) mRNA BNT-162b2 vax 07/18/2020 Recorded pneumococcal 13-valent vaccine 03/09/2020 Recorded influenza virus vaccine, inactivated 03/09/2020 [facility] Hospital Discharge instructions Patient Education 01/10/2024 [...] and water are not available, use hand home health cna. 2.Clean your penis with soap and water. [...] reusable catheter in a small bathroom. Take kdkh-jho-vblpwfx and prescription medicines only as told by [...] provider. Document Revised: 03/29/2022 Document Reviewed: 03/29/2022 [employer] Patient Education 2022 [employer] Inc. Follow Up Care 09/22/2023 13:04:49 With:EMMY REYNOLDS, Bryant Vogel, URL Address: [address] [place] [address]- When: Unknown Comments:6 mos [facility] [place] [phone] NotePatient Education Urology Clean Intermittent Catheterization, Male [...] and water are not available, use hand home health cna. 2. Clean your penis with soap and [...] catheter in a small bathroom. ? Take btmo-axz-oijwswv and prescription medicines onl (more content not included)...[facility]07-27-2024 NoteDischarge Summary Admission and Discharge Information [...] spending 1 more fucking night in this [facility] with the terrible food and lack [...] made to ensure accuracy, however, inadvertently computerized welding equipment repairer mistakes may be present. Significant Findings No qualifying data available. Services Consulted Consult to Nephrology - Ordered -- 12/29/23 15:09:00 EDT, Refractory hypomagnesemia, REQUESTED BY DR. GRACE, Consult and Co-manage Consult to Nephrology - Ordered -- 12/29/23 15:22:00 EDT, recurrent hypomag., renal wasting, Consult and Co-manage Consult to Social Servi (more content not included)...[facility] HospitalComment on above:Result Comment: Electronically Signed By: Dacia BYRD\.br\Date and Time Signed: 12/30/23 12:31 EDT\.br\Electronically Co- Signed By: Dacia MEYER\.br\Date and Time Co-Signed: 12/30/23 12:32 EDT\.br\Electronically Co-Signed By: Artemio Olivares DO\.br\Date and Time Co-Signed: 12/31/23 07:05 [id number] NoteConsultation Note Patient: ALICJA REYES Age: 68 [...] # 360 tab(s), Refills(s) 1, Pharmacy: [facility], 174, cm, 07/26/23 10:21:00 EST, [...] [facility] Supply, 174.5, cm,05/26/23 9:14:00 EST, Height/Length Dosing, 109.1, kg, 05/26/23 9:14:00... [facility] Prescription: [facility] Prescription, See Instructions, 100 strip(s), 3, One touch ultra 2 test strips Use to tests sugars once a day Dx E (more content not included)...[facility] HospitalComment on above: Result Comment: Electronically Signed By: Hellen Sexton CNP\.br\Date and Time Signed: 12/29/23 18:22 EDT\.br\Electronically Co-Signed By: Ramos Euceda MD\.br\Date and Time Co-Signed: 12/30/23 16:58 [id number] Hospital Discharge instructions Patient Education 12/30/2023 12:37:57 [...] Do not drink alcohol. General instructions Take nixn-umq-ysplnrb and prescription medicines only as told by [...] provider. Document Revised: 10/20/2021 Document Reviewed: 10/20/2021 [employer] Patient Education 2022 [employer]ides. 12/30/2023 12:37:57 Hypomagnesemia Hypomagnesemia Hypomagnesemia is a [...] Do not drink alcohol. General instructions Take sjjj-vkj-nbyhtoy and prescription medicines only as told by [...] provider. Document Revised: 10/20/2021 Document Reviewed: 10/20/2021 [employer] Patient Education 2022 CloudSlides. 12/30/2023 12:30:15 How to Take Your Blood Pressure, Zqzo-ck-Fsmn How to Take Your Blood Pressure Blood [...] Follow these instructions at home: Medicines Take zhoq-wmj-ibqbhww and prescription medicines only as told by [...] monitor. You can buy one at a [employer] or online. When choosing one: Choose one with an arm cuff. Choose one that wraps around your upper arm. Only one finger should fit between your arm and the cuff. Do not choose one that measures your blood pressure from your wrist or finger. Where to find more information [place] Heart Association: www.heart.org Contact a doctor if: [...] provider. Document Revised: 02/04/2022 Document Reviewed: 02/04/2022 [employer] Patient Education 2022 CloudSlides. 12/30/2023 12:30:15 Form - Blood Pressure Record [...] provider. Document Revised: 02/04/2022 Document Reviewed: 02/04/2022 [employer] Patient Education 2022 [employer] Inc. 12/30/2023 11:53:55 Urinary Tract Infection, Adult, Wfzv-gg-Ekug Urinary Tract Infection, Adult A urinary tract [...] Follow these instructions at home: Medicines Take arda-zgs-rwxktxr and prescription medicines only as told by [...] provider. Document Revised: 01/02/2021 Document Reviewed: 01/02/2021 [employer] Patient Education 2022 [employer]Slides. 12/30/2023 11:53:55 Hypomagnesemia Hypomagnesemia Hypomagnesemia is a [...] Do not drink alcohol. General instructions Take yzuc-woo-ctoqdeu and prescription medicines only as told by [...] Document Reviewed: 10/20/2021 Elsevier Patient Education 2022 CloudSlides. Follow Up Care 12/29/2023 13:34:47 With:Ramos Euceda Address: [address] [place] [address] Business (1) When: Unknown Comments:Call for followup appointment in [place] office With:Nancy Grace Address: [address] [place] [address]- Business (2) When:01/05/2024 07:45:00 [facility] [phone] NoteInterdisciplinary Note - PT Order received, chart reviewed. Attempted PT evaluation at 1141 on 12/30/23. Upon attempt, pt. is speaking with Dacia MILLER-BP and threatening to leave AMA. Dacia instructs PT to hold evaluation at this time. Please re-order PT evaluation if deemed necessary in the future. No PT charges.[facility]07-25-2024 Evaluation + Plan noteExtracted from:Title:HypoMgAuthor:Hellen Sexton [...] deep vein thrombosis (DVT) prophylaxis (Z79.899: Other watcher automat long goods (current) drug therapy) Orders: magnesium sulfate + [...] B12 Level Extracted from:Title:Admission H & PAuthor:[facility], ReneeDate:12/29/23 Awaiting med rec for [...] deep vein thrombosis (DVT) prophylaxis (Z79.899: Other watcher automat long goods (current) drug therapy) -Lovenox Orders: acetaminophen, 650 [...] Cardiac Monitoring CBC w/ Auto Diff Clinical [place] Withdrawal Assessment Clinical [place] Withdrawal Assessment Clinical [place] Withdrawal Assessment Clinical [place] Withdrawal Assessment Communication Order Physician to Nursing Communication Order Physician to Nursing Consult to Nephrology Consult to Cushion Mat Maker Drug Screen Urine Elevate Head of Bed [...] made to ensure accuracy, however, inadvertently computerized welding equipment repairer mistakes may be present. Future Appointments Appointment Date:01/05/2024 07:45:00 AM Scheduled Provider:Nancy Grace MD Location:[facility] Appointment Type: Hospital Follow Up w/TCM Appointment Date:01/10/2024 08:15:00 AM Scheduled Provider:Bryant TAO MD Location:[facility] [place] Appointment Type:URO Office Visit Appointment Date:01/13/2024 09:00:00 AM Scheduled Provider:Javier Goins MD [facility] [place] [facility] Type:Cardiology Follow Up (FT) Appointment Date:07/09/2024 08:00:00 AM Scheduled Provider: Location:[facility] Appointment Type: Medicare Wellness Subsequent Diagnostic Tests Pending * PTH Intact 12/30/23 Future Scheduled Tests Laboratory* U Protein/Creat Ratio 07/14/23 * HgbA1c 07/14/23 * HgbA1c 07/26/23 * Microalbumin Level Urine 07/14/23 * CBC w/ Auto Diff 07/14/23 * Comprehensive Metabolic Panel 07/14/23 * Lipid Panel 07/14/23 [facility] 06-24-2024 Hospital Discharge instructions Patient Education [...] Care 09/27/2023 14:45:03 With:Bryant TAO Address: [address] [place], [place] [address] Business (1) When: Unknown Comments:As we discussed, [...] are at least emptying the bladder intermittently. [facility]06-24-2024 Note [id number]#[id number] [facility] 11-28-2023 NoteCystoscopy ? Voiding [...] if you have a fever over 100 degrees.[facility] 09-22-2023 Hospital Discharge instructions Patient Education [...] including vitamins, herbs, eye drops, creams, and hppw-ftf-opumzwf medicines. Any problems you or family members [...] provider tells you to take them. Taking tcfh-snw-bfzjotc medicines, vitamins, herbs, and supplements. Tests You [...] Follow these instructions at home: Medicines Take nift-jwp-bkthebi and prescription medicines only as told by [...] provider. Document Revised: 02/03/2022 Document Reviewed: 01/02/2021 [employer] Patient Education 2022 [employer]Slides. Follow Up Care 09/06/2023 09:35:10 With:EMMY REYNOLDS, Bryant Vogel, URL Address: [facility] [place] [address]- When: Unknown [facility] [place] [phone] NoteUrology Cystoscopy Cystoscopy is a procedure that [...] including vitamins, herbs, eye drops, creams, and ixkw-jgc-foeypkp medicines. ? Any problems you or family [...] tells you to take them. ? Taking loqb-htk-aivajcz medicines, vitamins, herbs, and supplements. Tests You [...] these instructions at home: Medicines ? Take nury-zbf-iekxkhb and prescription medicines only as told by [...] the department th (more content not included)...Anjel [facility] 08-17-2023 [id number] [facility]02-21-2024 Hospital Discharge instructions Patient Education 07/27/2023 11:28:01 [...] discomfort near your rectum, especially while sitting. [place]-colored urine due to small amounts of blood in your urine. A burning feeling while urinating. Blood in your stool (feces) or bleeding from your rectum. Blood in your semen. Follow these instructions at home: Medicines Take dfiz-nsp-jrrrlti and prescription medicines only as told by [...] provider. Document Revised: 11/16/2021 Document Reviewed: 11/16/2021 [employer] Patient Education 2022 [employer]. 07/27/2023 11:28:00 Transrectal Ultrasound-Guided Prostate Biopsy Transrectal [...] including vitamins, herbs, eye drops, creams, and sfab-wxb-rdphkhd medicines. Any problems you or family members [...] provider tells you to take them. Taking atoq-xvh-lbxluqx medicines, vitamins, herbs, and supplements. General instructions [...] provider. Document Revised: 11/16/2021 Document Reviewed: 11/16/2021 [employer] Patient Education 2022 [employer]. Follow Up Care 07/26/2023 12:46:05 With:RAMANDEEP PORTER PA-C, URL Address: [address] [place] [address] When: Unknown [facility] [place] 01-16-2024 Hospital Discharge instructions [...] including vitamins, herbs, eye drops, creams, and mvzh-njd-zshmwma medicines. Any problems you or family members [...] provider tells you to take them. Taking uezr-buh-hgfftiw medicines, vitamins, herbs, and supplements. Tests You [...] Follow these instructions at home: Medicines Take ouwr-tix-srgfsbw and prescription medicines only as told by [...] provider. Document Revised: 02/03/2022 Document Reviewed: 01/02/2021 [employer] Patient Education 2022 [employer]. 06/21/2023 14:21:23 Acute Urinary Retention, Male [...] Follow these instructions at home: Medicines Take cpaa-rfs-vcwwycc and prescription medicines only as told by [...] provider. Document Revised: 02/11/2021 Document Reviewed: 02/11/2021 [employer] Patient Education 2022 [employer]. Follow Up Care 06/21/2023 10:00:59 With:MINDI CHRISTIAN, RAMANDEEP Green, URL Address: [address] [place] [address]. [place] [address] [phone] When: Unknown Comments:sched cysto and prostate MRI [facility] [place] 03-01-2020 Evaluation + Plan note Future Appointments Appointment Date:08/02/2023 08:00:00 AM Scheduled Provider: Location:FT.[facility]ARDIO Appointment Type:CV Echo (FT) Appointment Date:08/05/2023 08:45:00 AM Scheduled Provider: Location:FT.NUCLE[facility] MED Appointment Type:NM Myocard Spect Multi Rest/Stress-Res Appointment Date:08/05/2023 09:45:00 AM Scheduled Provider: [facility] Type:NM Myocard Spect Multi Rest/Stress - R Appointment Date:08/05/2023 10:15:00 AM Scheduled Provider: [facility] Appointment Type:NM Myocard Spect Multi Rest/Stress-Str Appointment Date:08/05/2023 11:15:00 AM Scheduled Provider: [facility] Appointment Type:NM Myocar Spect Multi Rest/Stress - St Appointment Date:08/08/2023 02:00:00 PM Scheduled Provider: Location:[facility] Appointment Type:Urology FT Appointment Date:08/08/2023 03:00:00 PM Scheduled Provider: Location:[facility] Appointment Type:Urology FT Appointment Date:08/15/2023 07:00:00 AM Scheduled Provider:Nancy Grace MD Location:[facility] Appointment Type: Open Appointment Date:08/19/2023 11:45:00 AM Scheduled Provider:Troy Coulter MD [facility] [place] Appointment Type:Cardiology Follow Up (FT) Appointment Date:07/09/2024 08:00:00 AM Scheduled Provider: Location:[facility] Appointment Type:FM Medicare Wellness Subsequent Future Scheduled Tests Laboratory* U Protein/Creat Ratio 07/14/23 * HgbA1c 07/14/23 * HgbA1c 07/26/23 * Microalbumin Level Urine 07/14/23 * CBC w/ Auto Diff 07/14/23 * Comprehensive Metabolic Panel 07/14/23 * Lipid Panel 07/14/23 Radiology* NM Myocardial Spect Rest/Stress 1 Day 08/05/23 * Echo Transthoracic Complete 08/02/23 [facility] [place] 01-08-2020 Evaluation + Plan note Future Appointments Appointment Date:06/09/2023 08:00:00 AM Scheduled Provider: [facility] Type:CV Echo (FT) Appointment Date:06/13/2023 08:00:00 AM Scheduled Provider:Nancy Grace MD Location:[facility] Appointment Type:FM Open Appointment Date:07/11/2023 09:00:00 AM Scheduled Provider:Manolo ALLEN MD [facility]O New Patient Appointment Date:07/27/2023 02:00:00 PM Scheduled Provider: [facility] Medicare Wellness Subsequent Appointment Date:07/27/2023 02:40:00 PM Scheduled Provider:Nancy Grace MD Location:[facility] Appointment Type: Open Future Scheduled Tests Radiology* Echo Transthoracic [facility]23 [facility] Future App[facility]ments Appointment Date:07/27/2023 02:00:00 PM Scheduled Provider: Location:[facility] Appointment Type: Medicare Wellness Subsequent Appointment Date:07/27/2023 02:40:00 PM Scheduled Provider:Nancy Grace MD Location:[facility] Appointment Type: Open [facility] + Plan note Future Appointments Appointment Date:05/16/2023 07:20:00 AM Scheduled Provider:[facility] Appointment Date:07/27/2023 02:00:00 PM Scheduled Provider: Location:[facility] Appointment Type: Medicare Wellness Subsequent Appointment Date:07/27/2023 02:40:00 PM Scheduled Provider:Nancy Grace MD Location:[facility] Appointment Type: Open [facility] + Plan note Future Appointments Appointment Date:05/16/2023 07:20:00 AM Scheduled Provider:Nancy Grace MD [facility]: Open Appointment Date:07/27/2023 02:00:00 PM Scheduled Provider: Location:[facility] Appointment Type: Medicare Wellness Subsequent Appointment Date:07/27/2023 02:40:00 PM Scheduled Provider:Nancy Grace MD [facility]: Open Diagnostic Tests Pending * [facility] Future Appointments Appointment Date:07/11/2023 09:00:00 AM Scheduled Provider:Manolo ALLEN MD [facility] Type:URO New Patient Appointment Date:07/27/2023 02:00:00 PM Scheduled Provider: Location:[facility] Appointment Type:FM Medicare Wellness Subsequent Appointment Date:07/27/2023 02:40:00 PM Scheduled Provider:Nancy Grace MD Location:[facility] Appointment Type:FM Open Diagnostic Tests Pending * Urine Culture 05/16/23 Future Scheduled Tests Radiology* Echo Transthoracic Complete 05[facility]16/23 [facility] Future Appointments Appointment Date:05/27/2023 08:20:00 AM Scheduled Provider: Location:[facility] Appointment Type:FM Nurse Visit Appointment Date:06/09/2023 08:00:00 AM Scheduled Provider: [facility] Type:CV Echo () Appointment Date:06/13/2023 08:00:00 AM Scheduled Provider:Nancy Grace MD Location:[facility] Appointment Type: Open Appointment Date:07/11/2023 09:00:00 AM Scheduled Provider:Manolo ALLEN MD Location:[facility] Appointment Type:URO New Patient Appointment Date:07/27/2023 02:00:00 PM Scheduled Provider: Location:[facility] Appointment Type: Medicare Wellness Subsequent Appointment Date:07/27/2023 02:40:00 PM Scheduled Provider:Nancy Grace MD Location:[facility] Appointment Type:FM Open Diagnostic Tests Pending * Urine Culture 05/26/23 Future Scheduled Tests Laboratory* Basic Metabolic Panel 05/26/23 Radiology* Echo Transthoracic Complete 06/09/23 [facility] Future Appointments Appointment Date:06/13/2023 08:00:00 AM Scheduled Provider:Nancy Grace MD Location:[facility] Appointment Type:FM Open Appointment Date:06/29/2023 10:15:00 AM Scheduled Provider:Kristel Tolentino MD Location:[facility] Appointment Type:URO New Patient Appointment Date:07/25/2023 02:00:00 PM Scheduled Provider: Location:[facility] Appointment Type: Medicare Wellness Subsequent Appointment Date:07/25/2023 03:00:00 PM Scheduled Provider:Nancy Grace MD Location:[facility] App[facility]ments Appointment Date:06/29/2023 10:15:00 AM Scheduled Provider:Kristel Tolentino MD Location:[facility] Appointment Type:URO New Patient Appointment Date:07/14/2023 10:00:00 AM Scheduled Provider:Nancy Grace MD Location:[facility] Appointment Type: Open Appointment Date:07/15/2023 02:00:00 PM Scheduled Provider:Troy Coulter MD [facility] Appointment Type:Cardiology New Patient (FT) Appointment Date:07/25/2023 02:00:00 PM Scheduled Provider: Location:[facility] Appointment Type: Medicare Wellness Subsequent Appointment Date:07/25/2023 03:00:00 PM Scheduled Provider:Nancy Grace MD Location:[facility] Future Appointments Appointment Date:06/22/2023 10:30:00 AM Scheduled Provider: Location:[facility] Appointment Type:URO Nurse Visit Appointment Date:06/28/2023 07:45:00 AM Scheduled Provider:Nancy Grace MD Location:[facility] Appointment Type: Hospital Follow Up w/TCM Appointment Date:07/14/2023 10:00:00 AM Scheduled Provider:Nancy Grace MD Location:[facility] Appointment Type: Open Appointment Date:07/15/2023 02:00:00 PM Scheduled Provider:Troy Coulter MD [facility] Appointment Type:Cardiology New Patient (FT) Appointment Date:07/25/2023 02:00:00 PM Scheduled Provider: Location:[facility] Appointment Type: Medicare Wellness Subsequent Appointment Date:07/25/2023 03:00:00 PM Scheduled Provider:Nancy Grace MD Location:[facility] Appointment Type: Open [facility] evaluation + Plan note Future Appointments Appointment Date:06/23/2023 08:00:00 AM Scheduled Provider: Location:[facility] Appointment Type:URO Nurse Visit Appointment Date:06/28/2023 07:45:00 AM Scheduled Provider:Nancy Grace MD [facility] Follow [facility] w/TCM Appointment Date:07/14/2023 10:00:00 AM Scheduled Provider:Nancy Grace MD [facility]: Open Appointment Date:07/15/2023 02:00:00 PM Scheduled Provider:Troy Coulter MD [facility] Appointment Type:Cardiology New Patient (FT) Appointment Date:07/25/2023 02:00:00 PM Scheduled Provider: Location:[facility] Appointment Type: Medicare Wellness Subsequent Appointment Date:07/25/2023 03:00:00 PM Scheduled Provider:Nancy Grace MD Location:[facility] Appointment Type: Open [facility] evaluation + Plan note Future Appointments Appointment Date:06/28/2023 07:45:00 AM Scheduled Provider:Nancy Grace MD Location:[facility] Appointment Type: Hospital Follow Up w/TCM Appointment Date:07/14/2023 10:00:00 AM Scheduled Provider:Nancy Grace MD Location:[facility] Appointment Type: Open Appointment Date:07/15/2023 02:00:00 PM Scheduled Provider:Troy Coulter MD [facility] Appointment Type:Cardiology New Patient (FT) Appointment Date:07/25/2023 02:00:00 PM Scheduled Provider: Location:[facility] Appointment Type: Medicare Wellness Subsequent Appointment Date:07/25/2023 03:00:00 PM Scheduled Provider:Nancy Grace MD Location:[facility] Appointment Type:[facility] evaluation + Plan note Future Appointments Appointment Date:07/14/2023 10:00:00 AM Scheduled Provider:Nancy Grace MD Location:[facility] Appointment Type:FM Open Appointment Date:07/15/2023 02:00:00 PM Scheduled Provider:Troy Coulter MD [facility] Appointment Type:Cardiology New Patient (FT) Appointment Date:07/25/2023 02:00:00 PM Scheduled Provider: Location:[facility] Appointment Type: Medicare Wellness Subsequent Appointment Date:07/25/2023 03:00:00 PM Scheduled Provider:Nancy Grace MD Location:[facility] Appointment Type:FM Open Appointment Date:08/08/2023 02:00:00 PM Scheduled Provider: Location:[facility] Appointment Type:Urology FT Appointment Date:08/08/2023 03:00:00 PM Scheduled Provider: Location:[facility] Appointment Type:[facility] FT [facility] Future Appointments Appointment Date:07/25/2023 02:00:00 PM Scheduled Provider: Location:[facility] Appointment Type: Medicare Wellness Subsequent Appointment Date:07/25/2023 03:00:00 PM Scheduled Provider:Nancy Grace MD Location:[facility] Appointment Type: Open Appointment Date:08/02/2023 08:00:00 AM Scheduled Provider: [facility]oint[facility] Type:CV Echo (FT) Appointment Date:08/08/2023 02:00:00 PM Scheduled Provider: Location:[facility] Appointment Type:Urology FT Appointment Date:08/08/2023 03:00:00 PM Scheduled Provider: Location:[facility] Appointment Type:Urology FT Appointment Date:08/19/2023 11:45:00 AM Scheduled Provider:Troy Coulter MD [facility] Appointment Type:Cardiology Follow Up (FT) Future Scheduled Tests Laboratory* U Protein/Creat Ratio 07/14/23 * HgbA1c 07/14/23 * Microalbumin Level Urine 07/14/23 * CBC w/ Auto Diff 07/14/23 * Comprehensive Metabolic Panel 07/14/23 * Lipid Panel 07/14/23 Radiology* Echo Transthoracic Complete 08/02/23 [facility] Future Appointments Appointment Date:08/05/2023 08:45:00 AM Scheduled Provider: [facility] Appointment Type:NM Myocard Spect Multi Rest/Stress-Res Appointment Date:08/05/2023 09:45:00 AM Scheduled Provider: [facility] Appointment Type:NM Myocard Spect Multi Rest/Stress - R Appointment Date:08/05/2023 10:15:00 AM Scheduled Provider: [facility] Appointment Type:NM Myocard Spect Multi Rest/Stress-Str Appointment Date:08/05/2023 11:15:00 AM Scheduled Provider: [facility] Appointment Type:NM Myocar Spect Multi Rest/Stress - St Appointment Date:08/15/2023 07:00:00 AM Scheduled Provider:Nancy Grace MD Location:[facility] Appointment Type: Open Appointment Date:08/19/2023 11:45:00 AM Scheduled Provider:Troy Coulter MD [facility] [place] Appointment Type:Cardiology Follow Up (FT) Appointment Date:07/09/2024 08:00:00 AM Scheduled Provider: Location:[facility] Appointment Type:FM Medicare Wellness Subsequent Future Scheduled Tests Laboratory* U Protein/Creat Ratio 07/14/23 * HgbA1c 07/14/23 * HgbA1c 07/26/23 * Microalbumin Level Urine 07/14/23 * CBC w/ Auto Diff 07/14/23 * Comprehensive Metabolic Panel 07/14/23 * Lipid Panel 07/14/23 Radiology* NM Myocardial Spect Rest/Stress 1 Day 08/05/23 [facility] Future Appointments Appointment Date:08/08/2023 12:30:00 PM Scheduled Provider: [facility] Appointment Type:NM Myocard Spect Multi Rest/Stress-Res Appointment Date:08/08/2023 01:30:00 PM Scheduled Provider: [facility] Appointment Type:NM Myocard Spect Multi Rest/Stress - R Appointment Date:08/08/2023 02:00:00 PM Scheduled Provider: [facility] Appointment Type:NM Myocard Spect Multi Rest/Stress-Str Appointment Date:08/08/2023 03:00:00 PM Scheduled Provider: [facility] Appointment Type:NM Myocar Spect Multi Rest/Stress - St Appointment Date:08/11/2023 09:30:00 AM Scheduled Provider: Location:[facility] Appointment Type:Surgical PAT FT Appointment Date:08/15/2023 07:00:00 AM Scheduled Provider:Nancy Grace MD Location:[facility] Appointment Type: Open Appointment Date:08/19/2023 11:45:00 AM Scheduled Provider:Troy Coulter MD Location:[facility] Appointment Type:Cardiology Follow Up (FT) Appointment Date:09/01/2023 01:30:00 PM Scheduled Provider: Location:[facility] Appointment Type:Surgery FT Appointment Date:07/09/2024 08:00:00 AM Scheduled Provider: Location:[facility] Appointment Type: Medicare Wellness Subsequent Future Scheduled Tests Laboratory* U Protein/Creat Ratio 28/24 * HgbA1c 2/8/24 * HgbA1c 220/24 * Microalbumin Level Urine 24 * CBC w/ Auto Diff 07/14/23 * Comprehensive Metabolic Panel 07/14/23 * Lipid Panel 07/14/23 [facility] Future Appointments Appointment Date:08/15/2023 07:00:00 AM Scheduled Provider:Nancy Grace MD Location:[facility] Appointment Type: Open Appointment Date:08/19/2023 11:45:00 AM Scheduled Provider:Troy Coulter MD Location:[facility] Appointment Type:Cardiology Follow Up (FT) Appointment Date:09/01/2023 01:30:00 PM Scheduled Provider: Location:[facility] Appointment Type:Surgery FT Appointment Date:07/09/2024 08:00:00 AM Scheduled Provider: Location:[facility] Appointment Type: Medicare Wellness Subsequent Future Scheduled Tests Laboratory* U Protein/Creat Ratio 28/24 * HgbA1c 28/24 * HgbA1c 220/24 * Microalbumin Level Urine 24 * CBC w/ Auto Diff 824 * Comprehensive Metabolic Panel 24 * Lipid Panel 24 [facility] Future Appointments Appointment Date:08/19/2023 11:45:00 AM Scheduled Provider:Troy Coulter MD [facility] [place] Appointment Type:Cardiology Follow Up (FT) Appointment Date:09/01/2023 01:30:00 PM Scheduled Provider: Location:[facility] Appointment Type:Surgery FT Appointment Date:07/09/2024 08:00:00 AM Scheduled Provider: Location:[facility] Appointment Type: Medicare Wellness Subsequent Diagnostic Tests Pending * Microalbumin Level Urine 08/15/23 * U Protein/Creat Ratio 08/15/23 Future Scheduled Tests Laboratory* U Protein/Creat Ratio 07/14/23 * HgbA1c 07/14/23 * HgbA1c 07/26/23 * Microalbumin Level Urine 07/14/23 * CBC w/ Auto Diff 07/14/23 * Comprehensive Metabolic Panel 07/14/23 * Lipid Panel 07/14/23 [facility] Future Appointments Appointment Date:09/01/2023 01:45:00 PM Scheduled Provider: Location:[facility] Appointment Type:Surgery FT Appointment Date:10/19/2023 12:00:00 PM Scheduled Provider:Troy Coulter MD [facility] Type:Cardiology Follow Up (FT) Appointment Date:07/09/2024 08:00:00 AM Scheduled Provider: Location:[facility] Appointment Type: Medicare Wellness Subsequent Future Scheduled Tests Laboratory* U Protein/Creat Ratio 07/14/23 * HgbA1c 07/14/23 * HgbA1c 07/26/23 * Microalbumin Level Urine 07/14/23 * CBC w/ Auto Diff 07/14/23 * Comprehensive Metabolic Panel 07/14/23 * Lipid Panel 07/14/23 [facility] Future Appointments Appointment Date:10/19/2023 12:00:00 PM Scheduled Provider:Troy Coulter MD [facility] Type:Cardiology Follow Up (FT) Appointment Date:07/09/2024 08:00:00 AM Scheduled Provider: Location:[facility] Appointment Type: Medicare Wellness Subsequent Future Scheduled Tests Laboratory* U Protein/Creat Ratio 07/14/23 * HgbA1c 2/8/24 * HgbA1c 07/26/23 * Microalbumin Level Urine 07/14/23 * CBC w/ Auto Diff 07/14/23 * Comprehensive Metabolic Panel 07/14/23 * Lipid Panel 07/14/23 [facility] Future Appointments Appointment Date:10/19/2023 12:00:00 PM Scheduled Provider:Troy Coulter MD [facility] Type:Cardiology Follow Up (FT) Appointment Date:01/10/2024 08:15:00 AM Scheduled Provider:Bryant TAO MD [facility] Appointment Type:URO Office Visit Appointment Date:07/09/2024 08:00:00 AM Scheduled Provider: Location:[facility] Appointment Type:FM Medicare Wellness Subsequent Diagnostic Tests Pending * PSA Free & Total 12/05/23 Future Scheduled Tests Laboratory* U Protein/Creat Ratio 07/14/23 * HgbA1c 07/14/23 * HgbA1c 07/26/23 * Microalbumin Level Urine 07/14/23 * CBC w/ Auto Diff 07/14/23 * Comprehensive Metabolic Panel 07/14/23 * Lipid Panel 07/14/23 [facility] Evaluation + Plan note Future Appointments Appointment Date:11/22/2023 10:00:00 AM Scheduled Provider: Location:[facility] Appointment Type:Urology CALL PAT FT Appointment Date:11/28/2023 02:00:00 PM Scheduled Provider: Location:[facility] Appointment Type:Urology FT Appointment Date:11/28/2023 03:00:00 PM Scheduled Provider: Location:[facility] Appointment Type:Urology FT Appointment Date:12/16/2023 09:00:00 AM Scheduled Provider:Javier Goins MD [facility] Appointment Type:Cardiology Follow Up (FT) Appointment Date:01/10/2024 08:15:00 AM Scheduled Provider:Bryant TAO MD [facility] Appointment Type:URO Office Visit Appointment Date:07/09/2024 08:00:00 AM Scheduled Provider: Location:[facility] Appointment Type: Medicare Wellness Subsequent Future Scheduled Tests Laboratory* U Protein/Creat Ratio 07/14/23 * HgbA1c 07/14/23 * HgbA1c 07/26/23 * Microalbumin Level Urine 07/14/23 * CBC w/ Auto Diff 07/14/23 * Comprehensive Metabolic Panel 07/14/23 * Lipid [facility]14/23 [facility] App[facility]ments Appointment Date:12/16/2023 09:00:00 AM Scheduled Provider:Javier Goins MD [facility] Appointment Type:Cardiology Follow Up (FT) Appointment Date:01/10/2024 08:15:00 AM Scheduled Provider:Bryant TAO MD Location[facility] Appointment Type:URO Office Visit Appointment Date:07/09/2024 08:00:00 AM Scheduled Provider: Location:[facility] Appointment Type:FM Medicare Wellness Subsequent Future Scheduled Tests Laboratory* U Protein/Creat Ratio 07/14/23 * HgbA1c 07/14/23 * HgbA1c 07/26/23 * Microalbumin Level Urine 07/14/23 * CBC w/ Auto Diff 07/14/23 * Comprehensive Metabolic Panel 07/14/23 * Lipid Panel 07/14/23 [facility] Future App[facility]ments Appointment Date:01/10/2024 08:15:00 AM Scheduled Provider:Bryant TAO MD Location[facility] Appointment Type:URO Office Visit Appointment Date:01/13/2024 09:00:00 AM Scheduled Provider:Javier Goins MD [facility] Appointment Type:Cardiology Follow Up (FT) Appointment Date:07/09/2024 08:00:00 AM Scheduled Provider: Location:[facility] Appointment Type:FM Medicare Wellness Subsequent Diagnostic Tests Pending * Urine Culture 12/22/23 Future Scheduled Tests Laboratory* U Protein/Creat Ratio 07/14/23 * HgbA1c 07/14/23 * HgbA1c 07/26/23 * Microalbumin Level Urine 07/14/23 * CBC w/ Auto Diff 07/14/23 * Comprehensive Metabolic Panel 07/14/23 * Lipid Panel 07/14/23 [facility] Future App[facility]ments Appointment Date:01/10/2024 08:15:00 AM Scheduled Provider:Bryant TAO MD Location[facility] Appointment Type:URO Office Visit Appointment Date:01/13/2024 09:00:00 AM Scheduled Provider:Javier Goins MD [facility] Appointment Type:Cardiology Follow Up (FT) Appointment Date:07/09/2024 08:00:00 AM Scheduled Provider: Location:[facility] Appointment Type: Medicare Wellness Subsequent Diagnostic Tests Pending * Magnesium Level 12/22/23 Future Scheduled Tests Laboratory* U Protein/Creat Ratio 07/14/23 * HgbA1c 07/14/23 * HgbA1c 07/26/23 * Microalbumin Level Urine 07/14/23 * CBC w/ Auto Diff 07/14/23 * Comprehensive Metabolic Panel 07/14/23 * Lipid Panel 07/14/23 [facility] Future App[facility]ments Appointment Date:01/10/2024 08:15:00 AM Scheduled Provider:Bryant TAO MD Location[facility] Appointment Type:URO Office Visit Appointment Date:01/13/2024 09:00:00 AM Scheduled Provider:Javier Goins MD Location:[facility] Appointment Type:Cardiology Follow Up (FT) Appointment Date:07/09/2024 08:00:00 AM Scheduled Provider: Location:[facility] Appointment Type: Medicare Wellness Subsequent Future Scheduled Tests Laboratory* U Protein/Creat Ratio 07/14/23 * HgbA1c 07/14/23 * HgbA1c 07/26/23 * Microalbumin Level Urine 07/14/23 * CBC w/ Auto Diff 07/14/23 * Comprehensive Metabolic Panel 07/14/23 * Lipid Panel 07/14/23 [facility] Future App[facility]ments Appointment Date:01/11/2024 08:00:00 AM Scheduled Provider: Location:[facility] Appointment Type:FM Lab Draw Appointment Date:01/13/2024 09:00:00 AM Scheduled Provider:Javier Goins MD Location:[facility] [place] Appointment Type:Cardiology Follow Up (FT) Appointment Date:07/09/2024 08:00:00 AM Scheduled Provider: Location:[facility] Appointment Type: Medicare Wellness Subsequent Appointment Date:07/23/2024 08:15:00 AM Scheduled Provider:Bryant TAO MD Location[facility] Appointment Type:URO Office Visit Diagnostic Tests Pending * PSA Free & Total 01/10/24 Future Scheduled Tests Laboratory* U Protein/Creat Ratio 07/14/23 * HgbA1c 07/14/23 * HgbA1c 07/26/23 * Microalbumin Level Urine 07/14/23 * CBC w/ Auto Diff 07/14/23 * Comprehensive Metabolic Panel 07/14/23 * Lipid Panel 07/14/23 * Magnesium Level 01/05/24 * Urine Culture 01/05/24 [facility] Evaluation + Plan note Future Appointments Appointment Date:01/13/2024 09:00:00 AM Scheduled Provider:Javier Goins MD [facility] [place] Appointment Type:Cardiology Follow Up (FT) Appointment Date:07/09/2024 08:00:00 AM Scheduled Provider: Location:[facility] Appointment Type: Medicare Wellness Subsequent Appointment Date:07/23/2024 08:15:00 AM Scheduled Provider:Bryant TAO MD Location:[facility] Appointment Type:URO Office Visit Future Scheduled Tests Laboratory* U Protein/Creat Ratio 07/14/23 * HgbA1c 07/14/23 * HgbA1c 07/26/23 * Microalbumin Level Urine 07/14/23 * CBC w/ Auto Diff 07/14/23 * Comprehensive Metabolic Panel 07/14/23 * Lipid Panel 07/14/23 [facility] + Plan note Future Appointments Appointment Date:07/09/2024 08:00:00 AM Scheduled Provider: Location:[facility] Appointment Type: Medicare Wellness Subsequent Appointment Date:07/23/2024 08:15:00 AM Scheduled Provider:Bryant TAO MD Location:[facility] Appointment Type:URO Office Visit Future Scheduled Tests Laboratory* U Protein/Creat Ratio 07/14/23 * HgbA1c 07/14/23 * HgbA1c 07/26/23 * Microalbumin Level Urine 07/14/23 * CBC w/ Auto Diff 07/14/23 * Comprehensive Metabolic Panel 07/14/23 * Lipid Panel 07/14/23 [facility] evaluation + Plan note Future Appointments Appointment Date:07/24/2024 09:20:00 AM Scheduled Provider:TOSHIA Reddy APRN, [place] [facility] Location:[facility] hospital Appointment Type:URO Office Visit Appointment Date:10/08/2024 08:15:00 AM Scheduled Provider:Nancy Grace MD Location:[facility] Appointment Type: Open Appointment Date:01/07/2025 08:15:00 AM Scheduled Provider:Nancy Grace MD Location:[facility] Appointment Type: Open Appointment Date:07/09/2025 08:00:00 AM Scheduled Provider: Location:[facility] Appointment Type: Medicare Wellness Subsequent Future Scheduled Tests Laboratory* U Protein/Creat Ratio 07/14/23 * HgbA1c 07/14/23 * HgbA1c 07/26/23 * Microalbumin Level Urine 07/14/23 * CBC w/ Auto Diff 07/14/23 * Comprehensive Metabolic Panel 07/14/23 * Lipid Panel 07/14/23 [facility] evaluation + Plan note Future Appointments Appointment Date:08/21/2024 09:00:00 AM Scheduled Provider:TOSHIA Reddy APRN, [place] [facility] Location:[facility] hospital Appointment Type:URO Office Visit Appointment Date:10/08/2024 08:15:00 AM Scheduled Provider:Nancy Grace MD Location:[facility] Appointment Type: Open Appointment Date:01/07/2025 08:15:00 AM Scheduled Provider:Nacny Grace MD Location:[facility] Appointment Type: Open Appointment Date:07/09/2025 08:00:00 AM Scheduled Provider: Location:[facility] Appointment Type: Medicare Wellness Subsequent Future Scheduled Tests Laboratory* U Protein/Creat Ratio 07/14/23 * HgbA1c 07/14/23 * HgbA1c 07/26/23 * Microalbumin Level Urine 07/14/23 * PSA Free & Total 07/24/24 * CBC w/ Auto Diff 07/14/23 * Comprehensive Metabolic Panel 07/14/23 * Lipid Panel 07/14/23 [facility] Evaluation + Plan note Future Appointments Appointment Date:08/21/2024 09:00:00 AM Scheduled Provider:TOSHIA Reddy APRN, [place] [facility] Location:[facility] hospital Appointment Type:URO Office Visit Appointment Date:10/08/2024 08:15:00 AM Scheduled Provider:Nancy Grace MD Location:[facility] Appointment Type: Open Appointment Date:01/07/2025 08:15:00 AM Scheduled Provider:Nancy Grace MD Location:[facility] Appointment Type: Open Appointment Date:07/09/2025 08:00:00 AM Scheduled Provider: Location:[facility] Appointment Type: Medicare Wellness Subsequent [facility] evaluation + Plan note Future Appointments Appointment Date:09/03/2024 08:20:00 AM Scheduled Provider:RAMANDEEP PORTER PA-C Location:[facility] Appointment Type:URO Office Visit Appointment Date:10/08/2024 08:00:00 AM Scheduled Provider:Nancy Grace MD Location:[facility] Appointment Type: Open Appointment Date:01/07/2025 08:15:00 AM Scheduled Provider:Nancy Grace MD Location:[facility] Appointment Type: Open Appointment Date:07/09/2025 08:00:00 AM Scheduled Provider: Location:[facility] Appointment Type: Medicare Wellness Subsequent [facility] evaluation + Plan note Future Appointments Appointment Date:10/08/2024 08:00:00 AM Scheduled Provider:Nancy Grace MD Location:[facility] Appointment Type: Open Appointment Date:01/07/2025 08:15:00 AM Scheduled Provider:Nancy Grace MD Location:[facility] Appointment Type: Open Appointment Date:07/09/2025 08:00:00 AM Scheduled Provider: Location:[facility] Appointment Type: Medicare Wellness Subsequent [facility] evaluation + Plan note Future Appointments Appointment Date:01/07/2025 08:20:00 AM Scheduled Provider:Nancy Grace MD Location:[facility] Appointment Type: Open Appointment Date:03/27/2025 08:00:00 AM Scheduled Provider: Location:[facility] Appointment Type:URO Nurse Visit Appointment Date:04/01/2025 08:15:00 AM Scheduled Provider:Bryant TAO MD Location:[facility] Appointment Type:URO Office Visit Appointment Date:07/09/2025 08:00:00 AM Scheduled Provider: Location:[facility] Appointment Type: Medicare Wellness Subsequent Future Scheduled Tests Laboratory* PSA Free & Total 09/25/24 * Magnesium Level 10/08/24 [facility] evaluation + Plan note Future Appointments Appointment Date:01/07/2025 08:20:00 AM Scheduled Provider:Nancy Grace MD Location:[facility] Appointment Type: Open Appointment Date:03/27/2025 08:00:00 AM Scheduled Provider: Location:[facility] Appointment Type:URO Nurse Visit Appointment Date:04/01/2025 08:15:00 AM Scheduled Provider:Bryant TAO MD Location:[facility] [place] Appointment Type:URO Office Visit Appointment Date:07/09/2025 08:00:00 AM Scheduled Provider: Location:[facility] Appointment Type: Medicare Wellness Subsequent Diagnostic Tests Pending * Urine Culture 11/14/24 Future Scheduled Tests Laboratory* PSA Free & Total 09/25/24 * Magnesium Level 10/08/24 [facility] evaluation + Plan note Future Appointments Appointment Date:04/09/2025 08:40:00 AM Scheduled Provider:MARINO KEARNS CNP Location:[facility] Appointment Type:FM Open Appointment Date:06/25/2025 09:15:00 AM Scheduled Provider:Bryant TAO MD Location:[facility] [place] Appointment Type:URO Office Visit Appointment Date:07/09/2025 08:00:00 AM Scheduled Provider: [facility] Type: Medicare Wellness Subsequent Diagnostic Tests Pending * PSA Free & Total 03/19/25 [facility] Evaluation noteNo assessment information available [facility] Work Phone: Evaluation note* Diagnosis Carpal tunnel syndrome on both sides- Primary Carpal tunnel syndrome Polyneuropathy Unspecified hereditary and idiopathic peripheral neuropathy documented in this encounter [facility] HealthcareEvaluation note* Diagnosis Carpal tunnel syndrome of right wrist- Primary Pain of right hand documented in this encounter [facility] HealthcareEvaluation note* Diagnosis Encounter for other preprocedural examination [facility] Diagnosis Preop examination Unspecified pre-operative examination documented in this encounter [facility] HealthcareEvaluation note* Diagnosis S/P carpal tunnel release- Primary Other postprocedural status documented in this encounter [facility] HealthcareEvaluation note* Diagnosis S/P carpal tunnel release- Primary Other postprocedural status documented in this encounter [facility] HealthcareHospital course Narrative No data available for this section [facility] No data available for this section [facility] Additional Instructions DISCHARGE INSTRUCTIONS FOR [...] your post-operative appointment in 1-2 weeks. 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 EMG Marino Kearns [facility] Medicine [address] [place] [id number] Phone: tel: fax: Carlos Howe DO [address] [place] [address] Phone: tel: fax: Referral IDStatusReasonStart DateExpiration DateVisits RequestedVisits [id number] Perform Procedure / [facility] Healthcare Summary Purpose Family History Relationship [...] section and content) DATE CREATED AUTHOR 07/14/2022 [facility] DATE CREATED AUTHOR AUTHOR'S ORGANIZ ATION 12/26/2023 [facility] DATE CREATED AUTHOR AUTHOR'S ORGANIZ ATION 12/27/2023 [facility] DATE CREATED AUTHOR AUTHOR'S ORGANIZ ATION 12/29/2023 [facility] DATE CREATED AUTHOR AUTHOR'S ORGANIZ ATION 12/30/2023 [facility] DATE CREATED AUTHOR AUTHOR'S ORGANIZ ATION 12/31/2023 [facility] DATE CREATED AUTHOR AUTHOR'S ORGANIZ ATION 01/03/2024 [facility] DATE CREATED AUTHOR AUTHOR'S ORGANIZ ATION 01/08/2024 [facility] DATE CREATED AUTHOR AUTHOR'S ORGANIZ ATION 02/01/2024 [facility] DATE CREATED AUTHOR AUTHOR'S ORGANIZ ATION 02/03/2024 [facility] DATE CREATED AUTHOR AUTHOR'S ORGANIZ ATION 02/24/2024 [facility] DATE CREATED AUTHOR AUTHOR'S ORGANIZ ATION 07/11/2024 [facility] DATE CREATED AUTHOR AUTHOR'S ORGANIZ ATION 07/18/2024 [facility] DATE CREATED AUTHOR AUTHOR'S ORGANIZ ATION 07/26/2024 [facility] DATE CREATED AUTHOR AUTHOR'S ORGANIZ ATION 08/10/2024 [facility] DATE CREATED AUTHOR AUTHOR'S ORGANIZ ATION 08/17/2024 [facility] DATE CREATED AUTHOR AUTHOR'S ORGANIZ ATION 08/23/2024 [facility] DATE CREATED AUTHOR AUTHOR'S ORGANIZ ATION 09/05/2024 [facility] DATE CREATED AUTHOR AUTHOR'S ORGANIZ ATION 09/25/2024 [facility] DATE CREATED AUTHOR AUTHOR'S ORGANIZ ATION 09/25/2024 [facility] DATE CREATED AUTHOR AUTHOR'S ORGANIZ ATION 10/11/2024 [facility] DATE CREATED AUTHOR AUTHOR'S ORGANIZ ATION 10/12/2024 [facility] DATE CREATED AUTHOR AUTHOR'S ORGANIZ ATION 11/16/2024 [facility] DATE CREATED AUTHOR AUTHOR'S ORGANIZ ATION 11/19/2024 [facility] DATE CREATED AUTHOR AUTHOR'S ORGANIZ ATION 01/09/2025 [facility] DATE CREATED AUTHOR AUTHOR'S ORGANIZ ATION 01/10/2025 [facility] DATE CREATED AUTHOR AUTHOR'S ORGANIZ ATION 02/02/2025 [facility] DATE CREATED AUTHOR AUTHOR'S ORGANIZ ATION 03/10/2025 [facility] DATE CREATED AUTHOR AUTHOR'S ORGANIZ ATION 03/11/2025 [facility] DATE CREATED AUTHOR AUTHOR'S ORGANIZ ATION 03/13/2025 [facility] DATE CREATED AUTHOR AUTHOR'S ORGANIZ ATION 03/20/2025 [facility] DATE CREATED AUTHOR AUTHOR'S ORGANIZ ATION 04/11/2025 [facility] Patient Care team informatio n (unrecognized section and content) Team Status: Active Member Role Status Dates Nancy Grace MD Primary Care Provider Active Team Status: Inactive Member Role Status Dates Ramandeep Porter PA-C Attending Provider Active Start: July 18, 2023 End: July 18, 2023MOUSTAPHA [facility] Care ProviderActiveStart: July 18, 2023 End: July 18, 2023 Team Status: Inactive Member Role Status Dates Nancy Grace MD Primary Care Provider Active Start: July 21, 2023 End: July 21, 2023Nicolasa Yang ProviderActiveStart: July 21, 2023 End: July 21, 2023 Team Status: Inactive Member Role Status Dates Nancy Grace MD Primary Care Provider Active Start: September 09, 2023 End: September 09, 2023Bryant Tao MDAttunc health [facility]ard[facility] ProviderActiveStart: September 09, 2023 End: September 09, 2023Team MemberRelationshipSpecialtyStart DateEnd Date Nancy Grace MD [address] [place] [address] PCP - GeneralFamily Medicine07/18/24Team MemberRelationshipSpecialtyStart DateEnd Date Nancy Grace MD [address] [place] [address] PCP - GeneralFamily Medicine07/18/24Team MemberRelationshipSpecialtyStart DateEnd Date Tyrese Mcgrath MD PCP - GeneralFamily Medicine02/27/18Team MemberRelationshipSpecialtyStart DateEnd Date Nancy Grace MD [address] [place] [address] PCP - Generalmily Medicine07/18/24Team MemberRelationshipSpecialtyStart DateEnd Date Nancy Grace MD [address] [place] [address] PCP - [facility]07/18/24Team MemberRelationshipSpecialtyStart DateEnd Date Nancy Grace MD [address] [place] [address] PCP - [facility]07/18/24Team MemberRelationshipSpecialtyStart DateEnd Date Nacny Grace MD [address] [place] [address] PCP - [facility]07/18/24Team MemberRelationshipSpecialtyStart DateEnd Date Nancy Grace MD [address] [place] [address] PCP - [facility]07/18/24Team MemberRelationshipSpecialtyStart DateEnd Date Nancy Grace MD [address] [place] [address] PCP - [facility] Medicine07/18/24 Team Status: Active Member Role [...] BE BASED ON THE PRIMARY CLINICAL RECORDS. [facility]. provides no warranty or guarantee of the accuracy or completeness of information in this document.
[2025-06-03 08:10] LABS: Anion Gap 14.7; Blood Urea Nitrogen 19.0 mg/dL (7.0-18.0); Calcium 8.9 mg/dL (8.5-10.1); Carbon Dioxide 24.6 mmol/L (21.0-32.0); Chloride 101 mmol/L (98-107); Estimated GFR (African America 38 (>=60 mL/min/1.73m^2); Estimated GFR (Non-African Ame 31 (>=60 mL/min/1.73m^2); Glucose 270 mg/dL (74-106); Magnesium 1.0 mg/dL (1.8-2.4); Potassium 4.3 mmol/L (3.5-5.1); Sodium 136 mmol/L (136-145)
== END 2025-06-03 07:16 | disposition home or self-care (01) ==
PROVIDERS: PCP Family Medicine
DX: N39.0 Urinary tract infection, site not specified (principal); N17.9 Acute kidney failure, unspecified
CPT/HCPCS: 36415; 80048; 83735